=== PATIENT | female | born 1955 | race African-American/Black ===

== ENCOUNTER 2017-04-10 19:54 | Inpatient (IN) | payer OTHER ==
[~2017-04-10] VITALS: Ht 167.6 cm; Wt 56.9 kg
[2017-04-10] VITALS (16 sets, daily range): BP systolic 145–252; BP diastolic 78–157; PULSE 76–99; RESP 17–24; TEMP 99–100.2; O2SAT 99–100
[~2017-04-10 19:54] MED LIST: LISI10TA3 PO
[2017-04-10] MEDS ORDERED: niCARdipine INJ 25 MG in SODIUM CHLOR 0.9% 250 ML INJ 250 ML IV SCH (20:00)
[2017-04-10] MEDS ORDERED: SODIUM CHLORIDE 0.9% FLUSH 10 ML FLUSH IVF PRN (20:00)
--- NOTE | 2017-04-10 20:16 | PD ---
HPI Chief Complaint: altered mental status Time Seen by Provider: 20:00 Travel History International Travel<30 days: No Contact w/Intl Traveler<30days: No Traveled to known affect area: No History of Present Illness HPI This is a middle-aged/elderly female brought in by ambulance after being found in a park sitting next to a bench with altered mental status. Unknown time of onset. Patient was found by children playing in the park. Upon EMS arrival they noted right-sided weakness with a leftward gaze. Patient is nonverbal, however she is following commands and is moving her left upper and left lower extremity. EKG was performed in the field and shows ST elevations in V1 through V3 with ST depressions and T-wave inversions in V5 and V6, therefore STEMI alert was also called by EMS. Patient is also notably hypertensive with blood pressures of 250s over 150s. Upon arrival to the emergency department the patient is awake, nonverbal, follows commands, protecting her airway, is able to move her left arm and left leg, however is unable to move her right arm and right leg. Patient was started on a Cardene drip for suspected intracranial hemorrhage and promptly taken to CT scan. At 8:05 PM case was discussed with on-call digital producer Dr. Quarles who agrees that this is most likely an intracranial hemorrhage based on clinical presentation, therefore STEMI alert was not initiated. Further history unable to be obtained from the patient. [facility] Social History Tobacco Use: No (UTO) Allergies-Medications (Allergen,Severity, Reaction): Coded Allergies: UNOBTAINABLE (Unverified , 04/10/17) Reported Meds & Prescriptions Reported Meds & Active Scripts Active Active Prescriptions or Reported Medications Unobtainable Review of Systems ROS Limitations: Clinical Condition Physical Exam Narrative GENERAL: Well-developed, well-nourished, awake, drowsy, yawning, follows commands, nonverbal, unable to provide history. SKIN: Focused skin assessment warm/dry. No lacerations, abrasions, or ecchymosis. HEAD: Atraumatic. Normocephalic. EYES: Left preferential gaze. Right pupil is 4 mm, round, sluggishly reactive. Left pupil is 3 mm, round, sluggishly reactive. ENT: No nasal bleeding or discharge. Mucous membranes pink and moist. Airway is patent and protected. NECK: Trachea midline. No JVD. CARDIOVASCULAR: Regular rate and rhythm. RESPIRATORY: No accessory muscle use. Clear to auscultation. Breath sounds equal bilaterally. GASTROINTESTINAL: Abdomen soft, non-tender, nondistended. MUSCULOSKELETAL: No obvious deformities. No clubbing. No cyanosis. No edema. NEUROLOGICAL: Awake, drowsy, follows commands. 4 out of 5 muscle strength in left upper and left lower extremity. Patient unable to move right upper and right lower extremity. Data Data Last Documented VS Vital Signs Date Time Temp Pulse Resp B/P Pulse Ox O2 Delivery O2 Flow Rate FiO2 04/10/17 20:47 92 22 204/107 99 Nasal Cannula 2 04/10/17 20:15 99.0 Orders Prothrombin Time / Inr (Pt) (04/10/17 20:00) Act Partial Throm Time (Ptt) (04/10/17 20:00) Complete Blood Count With Diff (04/10/17 20:00) Comprehensive Metabolic Panel (04/10/17 20:00) Creatine Kinase (Cpk) (04/10/17 20:00) Drug Screen, Random Urine (04/10/17 20:00) Troponin I (04/10/17 20:00) Urinalysis - C+S If Indicated (04/10/17 20:00) Ct Brain W/O Iv Contrast(Rout) (04/10/17 20:00) Chest, Single Ap (04/10/17 20:00) Ecg Monitoring (04/10/17 20:00) Iv Access Insert/Monitor (04/10/17 20:00) Oximetry (04/10/17 20:00) Sodium Chloride 0.9% Flush (Ns Flush) (04/10/17 20:00) Nicardipine Inj (Cardene Inj) (04/10/17 20:00) Ct Brain W/O Iv Contrast(Rout) (04/11/17 08:00) Urinary Catheter Insert/Apply (04/10/17 20:46) Admit Order (Ed Use Only) (04/10/17 20:53) Labs Laboratory Tests Test 04/10/17 20:00 White Blood Count 5.0 TH/MM3 Red Blood Count 5.01 MIL/MM3 Hemoglobin 14.6 GM/DL Hematocrit 44.9 % Mean Corpuscular Volume 89.5 FL Mean Corpuscular Hemoglobin 29.2 PG Mean Corpuscular Hemoglobin 32.6 % Concent Red Cell Distribution Width 13.5 % Platelet Count 163 TH/MM3 Mean Platelet Volume 10.5 FL Neutrophils (%) (Auto) 70.9 % Lymphocytes (%) (Auto) 21.9 % Monocytes (%) (Auto) 6.7 % Eosinophils (%) (Auto) 0.1 % Basophils (%) (Auto) 0.4 % Neutrophils # (Auto) 3.5 TH/MM3 Lymphocytes # (Auto) 1.1 TH/MM3 Monocytes # (Auto) 0.3 TH/MM3 Eosinophils # (Auto) 0.0 TH/MM3 Basophils # (Auto) 0.0 TH/MM3 CBC Comment DIFF FINAL Differential Comment Prothrombin Time 11.5 SEC Prothromb Time International 1.0 RATIO Ratio Activated Partial 25.9 SEC Thromboplast Time Sodium Level 141 MEQ/L Potassium Level 3.9 MEQ/L Chloride Level 104 MEQ/L Carbon Dioxide Level 30.4 MEQ/L Anion Gap 7 MEQ/L Blood Urea Nitrogen 7 MG/DL Creatinine 0.88 MG/DL Estimat Glomerular Filtration 67 ML/MIN Rate Random Glucose 110 MG/DL Calcium Level 9.2 MG/DL Total Bilirubin 0.5 MG/DL Aspartate Amino Transf 25 U/L (AST/SGOT) Alanine Aminotransferase 30 U/L (ALT/SGPT) Alkaline Phosphatase 89 U/L Total Creatine Kinase 150 U/L Troponin I LESS THAN 0.02 NG/ML Total Protein 8.3 GM/DL Albumin 4.3 GM/DL MDM Medical Decision Making Medical Screen Exam Complete: Yes Emergency Medical Condition: Yes Differential Diagnosis Intracranial hemorrhage, CVA, seizure, metabolic abnormality, STEMI Narrative Course See HPI CT head: Acute thalamic and intraventricular hemorrhage on the left with approximately 7 mm of rightward midline shift. 8:30 PM: Case discussed with on-call neurosurgeon Dr. Wang. No neurosurgical intervention at this time. Recommends medical management. Case discussed with consumer loan manager Dr. Sheehan who will admit the patient to his service to the ICU. Critical Care Narrative Aggregate critical care time was 40 minutes. Time to perform other separately billable procedures was not included in the critical care time. My time did not include minutes spent treating any other patients simultaneously or on activities that did not directly contribute to the patient's treatment. The services I provided to this patient were to treat and/or prevent clinically significant deterioration that could result in: , permanent disability, worsening clinical condition I provided critical care services requiring my management, as noted below: Chart data review, documentation time, medication orders and management, vital sign assessments/reviewing monitor data, ordering and reviewing lab tests, ordering and interpreting/reviewing x-rays and diagnostic studies, care of the patient and discussion of the patient with the admitting physicians. Diagnosis Primary Impression: Intracranial hemorrhage Additional Impression: Hemiparesis Admitting Information Admitting Physician Requests: Admit Scripts Unable to Obtain Active Prescriptions or Reported Meds Bipin Rodríguez MD Apr 10, 2017 20:16
--- NOTE | 2017-04-10 20:18 | RADRPT ---
EXAM DATE/TIME: 04/10/2017 20:09 [facility] COMPARISON: No previous studies available for comparison. INDICATIONS : Found unresponsive. RADIATION DOSE: 48.69 CTDIvol (mGy) MEDICAL HISTORY : Non-responsive. SURGICAL HISTORY : Non-responsive. ENCOUNTER: Initial ACUITY: 1 day PAIN SCALE: Non-responsive LOCATION: cranial TECHNIQUE: Multiple contiguous axial images were obtained of the head. Using automated exposure control and adj ustment of the mA and/or kV according to patient size, radiation dose was kept as low as reasonably a chievable to obtain optimal diagnostic quality images. FINDINGS: An acute parenchymal hemorrhage of the left thalamus is present, measures about 2.4 x 3.1 cm in size. There is blood in the left lateral ventricle. Approximately 7 mm of rightward midline shift present. No other hemorrhage demonstrated. A 12 mm meningioma suspected of the left parietal vertex witho ut evidence of significant mass effect. No other mass lesions are demonstrated. No evidence of an acu te ischemic event. CONCLUSION: Acute thalamic and intraventricular hemorrhage on the left with approximately 7 mm of rightward midli ne shift. Hu Henderson MD on April 10, 2017 at 20:13 Board Certified Radiologist. This report was verified electronically.
--- NOTE | 2017-04-10 20:31 | PD.CONS ---
History of Present Illness Service Neurosurgery Consult Requested By Emergency room-Dr. Rodríguez Reason for Consult Intracranial hemorrhage Primary Care Physician Diagnoses: History of Present Illness Patient was found in the park with altered mental status. Reportedly awake with right hemiparesis and a phasic initially in the emergency room. Initial blood pressure to 50s over 150s placed on a Cardene drip. Patient noted to have a large left parenchymal hemorrhage was intraventricular extension on initial CT scan. Review of Systems Unobtainable due to altered mental status Past Family Social History Allergies: Coded Allergies: UNOBTAINABLE (Unverified , 04/10/17) Past Medical History Past medical, surgical, social and family history unobtainable due to altered mental status. No family available for history Physical Exam Vital Signs Vital Signs Date Time Temp Pulse Resp B/P Pulse Ox O2 Delivery O2 Flow Rate FiO2 04/10/17 20:15 99.0 88 22 251/123 99 04/10/17 20:15 78 24 252/125 100 Nasal Cannula 2 04/10/17 19:55 76 22 247/157 100 Nasal Cannula 2 Physical Exam GENERAL: Somewhat disheveled-appearing female SKIN: Scattered areas of ecchymosis. No significant lacerations or contusions HEAD: Atraumatic. Normocephalic. No temporal or scalp tenderness. EYES sclerae are clear and nonicteric ENT: No facial edema or ecchymosis. No CSF otorrhea or rhinorrhea. Edentulous NECK: Trachea midline. Supple, nontender, no meningeal signs. CARDIOVASCULAR: Regular rate and rhythm without murmurs, gallops, or rubs. RESPIRATORY: Clear to auscultation. Breath sounds equal bilaterally. No wheezes , rales, or rhonchi. GASTROINTESTINAL: Abdomen soft, non-tender, nondistended. No hepato-splenomegaly , or palpable masses. No guarding. MUSCULOSKELETAL: Extremities without clubbing, cyanosis, or edema. No joint tenderness, effusion, or edema noted. No calf tenderness. NEUROLOGICAL: Awake and relatively alert Nonverbal Does not follow commands Does not focus or follow with eyes Pupils 3 mm nonreactive Left gaze preference Mildly disconjugate extraocular movements Cannot accurately assess visual dang, tongue, palate, sternocleidomastoid testing, facial sensory motor testing, hearing due to decreased mental status Moves left upper and lower extremity major flexion and extension groups with moderate to good strength Minimal withdrawal to deep pain right upper and lower extremity. Dm's response absent bilateral No ankle clonus Imaging 04/10/2017 CT scan head images reviewed by the undersigned. Discussed with emergency room physician at the time of initial consult. Head CT 04/10/171999 Draft Impressions: Service Date/Time: Monday, April 10, 2017 20:09 - CONCLUSION: Acute thalamic and intraventricular hemorrhage on the left with approximately 7 mm of rightward midline shift. Hu Henderson MD Assessment and Plan Assessment and Plan Impression: 1. Left hemisphere intracranial hemorrhage with intraventricular extension. There is approximately 7 mm midline shift, however this is at the level of the ventricle, without significant effacement of the cistern. No significant hydrocephalus noted. Recommendations: Findings were discussed with emergency room physician. No neurosurgical intervention planned at the present time. Continued nicardipine drip and when necessary antihypertensive medications to keep systolic blood pressure 120-150 range. Follow-up CT scan head 04/11/17 Non-chemical DVT prophylaxis Ulcer prophylaxis Intensive care admission per motor builder winder Discussed with motor builder winder. CT angiogram pending Javi Wang MD Apr 10, 2017 20:31
[2017-04-10 20:32] LABS: AUTOMATED NEUTROPHIL # 3.5 TH/MM3 (1.8-7.7); BASOPHIL % 0.4 % (0.0-2.0); EOSINOPHIL % 0.1 % (0.0-4.0); HEMATOCRIT 44.9 % (35.0-46.0); HEMOGLOBIN 14.6 GM/DL (11.6-15.3); LYMPH % 21.9 % (9.0-44.0); LYMPHOCYTE # 1.1 TH/MM3 (1.0-4.8); MEAN CELL VOLUME 89.5 FL (80.0-100.0); MEAN CORPUSCULAR HEMOGLOBIN 29.2 PG (27.0-34.0); MEAN CORPUSCULAR HGB CONC 32.6 % (32.0-36.0); MEAN PLATELET VOLUME 10.5 FL (7.0-11.0); MONO % 6.7 % (0.0-8.0); MONOCYTE # 0.3 TH/MM3 (0-0.9); NEUT % 70.9 % (16.0-70.0); PLATELET COUNT 163 TH/MM3 (150-450); RED BLOOD COUNT 5.01 MIL/MM3 (4.00-5.30); RED CELL DISTRIBUTION WIDTH 13.5 % (11.6-17.2)
[2017-04-10 20:44] LABS: PROTHROMBIN TIME - PATIENT 11.5 SEC (9.8-11.6)
[2017-04-10 20:46] LABS: ALBUMIN 4.3 GM/DL (3.4-5.0); AST (GOT) 25 U/L (15-37); BICARBONATE 30.4 MEQ/L (21.0-32.0); BLOOD UREA NITROGEN 7 MG/DL (7-18); CALCIUM 9.2 MG/DL (8.5-10.1); CHLORIDE 104 MEQ/L (98-107); CREATININE 0.88 MG/DL (0.50-1.00); GLOMERULAR FILTRATION RATE 67 ML/MIN (>89); GLUCOSE,RANDOM 110 MG/DL (74-106); SODIUM (NA) 141 MEQ/L (136-145)
[2017-04-10 20:47] LABS: ALT (GPT) 30 U/L (10-53)
[2017-04-10 20:51] LABS: ALKALINE PHOSPHATASE 89 U/L (45-117); TOTAL BILIRUBIN ADULT 0.5 MG/DL (0.2-1.0); TOTAL PROTEIN 8.3 GM/DL (6.4-8.2); TROPONIN I LESS THAN 0.02 NG/ML (0.02-0.05)
--- NOTE | 2017-04-10 21:39 | RADRPT ---
EXAM DATE/TIME: 04/10/2017 21:03 [facility] COMPARISON: No previous studies available for comparison. INDICATIONS : Stroke alert. MEDICAL HISTORY : None. SURGICAL HISTORY : None. ENCOUNTER: Initial ACUITY: 1 day PAIN SCORE: 10/10 LOCATION: Bilateral upper chest FINDINGS: Left lateral lung base is not entirely included on the study. A single view of the chest demonstrates the visualized lungs to be symmetrically aerated without evidence of mass, infiltrate or effusion. The cardiomediastinal contours are unremarkable. Osseous structures are intact. CONCLUSION: No evidence of acute cardiopulmonary disease. Hu Henderson MD on April 10, 2017 at 21:37 Board Certified Radiologist. This report was verified electronically.
[2017-04-10 21:48] LABS: AMORPHOUS SEDIMENT, URINE RARE; BILIRUBIN, URINE NEG (NEG); BLOOD, URINE NEG (NEG); GLUCOSE,URINE NEG (NEG); KETONE, URINE NEG (NEG); NITRITE,URINE NEG (NEG); URINE COLOR LIGHT-YELLOW (YELLW/STRAW); URINE LEUKOCYTE ESTERASE SMALL (NEG)
[2017-04-10] MEDS ORDERED: BISACODYL 10 MG SUPP RECTAL PRN (22:00)
[2017-04-10] MEDS ORDERED: PROCHLORPERAZINE 25 MG SUPP RECTAL PRN (22:00)
[2017-04-10] MEDS ORDERED: NURSING INFORMATION XX SCH (22:00)
[2017-04-10] MEDS ORDERED: METOCLOPRAMIDE HCL 10 MG/2 ML VIAL IV PRN (22:00)
[2017-04-10] MEDS ORDERED: MAGNESIUM HYDROXIDE SUSP 30 ML CUP PO PRN (22:00)
[2017-04-10] MEDS ORDERED: CHLORHEXIDINE GLUCONATE 2 % 1 PACK (2 CLOTHS) TOP PRN (22:00)
[2017-04-10] MEDS ORDERED: RESP: ALBUTEROL 2.5 MG/IPRATROPIUM 0.5 MG NEB (PRN) INH (22:00)
[2017-04-10] MEDS ORDERED: ONDANSETRON HCL 4 MG/2 ML VIAL IV PRN (22:00)
[2017-04-10] MEDS ORDERED: IOHEXOL 350 MG/ML 10 ML VIAL (for RAD DIAG) IV ONE (22:35)
--- NOTE | 2017-04-10 22:38 | HHI.HP ---
HPI Service Critical Care Medicine Primary Care Physician Unknown Admission Diagnosis intracranial hemorrhage, right hemiparesis Diagnosis: Travel History International Travel<30 Days: No Contact w/Intl Traveler <30 Da: No Traveled to Known Affected Are: No History of Present Illness Middle-aged very pleasant female brought in by ambulance after being found in a park sitting next to a bench with altered mental status. Unknown time of onset. Patient was found by children playing in the park. Upon EMS arrival they noted right-sided weakness with a leftward gaze. Patient is nonverbal, she is following commands and is moving her left upper and left lower extremity. EKG was performed in the field and shows ST elevations in V1 through V3 with ST depressions and T-wave inversions in V5 and V6, therefore STEMI alert was also called by EMS. Patient was also notably hypertensive with blood pressures of 250s over 150s. Upon arrival to the emergency department the patient is awake, nonverbal, follows commands, protecting her airway, is able to move her left arm and left leg, however is unable to move her right arm and right leg. Patient was started on a Cardene drip for suspected intracranial hemorrhage and promptly taken to CT scan. At 8:05 PM case was discussed by with on-call steam shovelman Dr. Quarles who agrees that this is most likely an intracranial hemorrhage based on clinical presentation, therefore STEMI alert was not initiated. CT of the head confirmed thalamic bleed with IVH extension. Review of Systems ROS Unable to obtain patient is nonverbal Past Family Social History Allergies: Coded Allergies: UNOBTAINABLE (Unverified , 04/10/17) Past Medical History Unable to obtain Past Surgical History Unable to obtain Reported Medications Unable to obtain Active Ordered Medications Current Medications Medications (Trade) Dose Ordered Sig/Reymundo Route PRN Reason Start Time Stop Time Status Last Admin Dose Admin Sodium Chloride (NS 1000 ml Inj) 1,000 ml @ 84 mls/hr [id number] IV 04/10/17 22:00 04/10/17 22:57 Sodium Chloride (NS Flush) 2 ml UNSCH PRN .XX FLUSH AFTER USING IV ACCESS 04/10/17 22:00 Sodium Chloride (NS Flush) 2 ml BID .XX 04/11/17 09:00 Acetaminophen (Tylenol) 650 mg Q6H PRN PO PAIN 1-10 AND/OR FEVER >101F 04/10/17 22:00 Morphine Sulfate (Morphine Inj) 2 mg Q2H PRN IV PAIN SCALE 6 TO 10 04/10/17 22:00 Famotidine (Pepcid Inj) 20 mg Q12HR IV PUSH 04/11/17 09:00 Ondansetron HCl (Zofran Inj) 4 mg Q6H PRN IV NAUSEA OR VOMITING 04/10/17 22:00 Metoclopramide HCl (Reglan Inj) 10 mg Q6H PRN IV NAUSEA OR VOMITING 04/10/17 22:00 Prochlorperazine (Compazine Supp) 25 mg Q12H PRN RECTAL NAUSEA OR VOMITING 04/10/17 22:00 Miscellaneous Information 1 [id number] XX 04/10/17 22:00 04/10/17 22:00 Chlorhexidine Gluconate (Chlorhexidine 2% Cloth) 3 pack Taper DAILY@04 TOP 04/11/17 04:00 04/07/18 03:59 Chlorhexidine Gluconate (Chlorhexidine 2% Cloth) 3 pack UNSCH PRN TOP HYGIENIC CARE 04/10/17 22:00 Senna/Docusate Sodium (Evelyn-Colace) 1 tab BID PO 04/11/17 09:00 Magnesium Hydroxide (Milk Of Magnesia Liq) 30 ml Q12H PRN PO MILD - MODERATE CONSTIPATION 04/10/17 22:00 Sennosides (Senokot) 17.2 mg Q12H PRN PO MODERATE - SEVERE CONSTIPATION 04/10/17 22:00 Bisacodyl (Dulcolax Supp) 10 mg DAILY PRN RECTAL SEVERE CONSITIPATION 04/10/17 22:00 Lactulose 30 ml 30 ml DAILY PRN PO SEVERE CONSITIPATION 04/10/17 22:00 Nicardipine HCl/ Sodium Chloride (Cardene Inj/NS 250 ml Inj) 260 ml @ 0 mls/hr TITRATE IV 04/10/17 22:15 04/11/17 00:48 Family History Unable to obtain Social History Unable to obtain Physical Exam Vital Signs Vital Signs Date Time Temp Pulse Resp B/P Pulse Ox O2 Delivery O2 Flow Rate FiO2 04/10/17 22:15 90 21 163/82 99 Nasal Cannula 2 04/10/17 22:00 89 21 161/83 100 Nasal Cannula 2 04/10/17 21:45 91 21 199/99 99 Nasal Cannula 2 04/10/17 21:30 86 21 222/126 99 Nasal Cannula 2 04/10/17 21:15 96 17 225/131 99 Nasal Cannula 2 04/10/17 21:00 84 22 194/100 99 Nasal Cannula 2 04/10/17 20:47 92 22 204/107 99 Nasal Cannula 2 04/10/17 20:30 84 24 205/102 99 Nasal Cannula 2 04/10/17 20:15 99.0 88 22 251/123 99 04/10/17 20:15 78 24 252/125 100 Nasal Cannula 2 04/10/17 19:55 76 22 247/157 100 Nasal Cannula 2 04/10/17 19:55 99 Nasal Cannula 2 04/10/17 19:54 99 Nasal Cannula 2 Physical Exam GENERAL: Well-nourished, well-developed patient. Nonverbal SKIN: Warm and dry. HEAD: Normocephalic. EYES: No scleral icterus. No injection or drainage. NECK: Supple, trachea midline. No JVD or lymphadenopathy. CARDIOVASCULAR: Regular rate and rhythm without murmurs, gallops, or rubs. RESPIRATORY: Breath sounds equal bilaterally. No accessory muscle use. GASTROINTESTINAL: Abdomen soft, non-tender, nondistended. MUSCULOSKELETAL: No cyanosis, or edema. BACK: Nontender without obvious deformity. No CVA tenderness. EXTREMITIES: No clubbing cyanosis or edema, follows commands on the right, draws to pain on the left Laboratory Laboratory Tests Test 04/10/17 04/10/17 20:00 21:04 White Blood Count 5.0 Red Blood Count 5.01 Hemoglobin 14.6 Hematocrit 44.9 Mean Corpuscular Volume 89.5 Mean Corpuscular Hemoglobin 29.2 Mean Corpuscular Hemoglobin 32.6 Concent Red Cell Distribution Width 13.5 Platelet Count 163 Mean Platelet Volume 10.5 Neutrophils (%) (Auto) 70.9 Lymphocytes (%) (Auto) 21.9 Monocytes (%) (Auto) 6.7 Eosinophils (%) (Auto) 0.1 Basophils (%) (Auto) 0.4 Neutrophils # (Auto) 3.5 Lymphocytes # (Auto) 1.1 Monocytes # (Auto) 0.3 Eosinophils # (Auto) 0.0 Basophils # (Auto) 0.0 CBC Comment DIFF FINAL Differential Comment Prothrombin Time 11.5 Prothromb Time International 1.0 Ratio Activated Partial 25.9 Thromboplast Time Sodium Level 141 Potassium Level 3.9 Chloride Level 104 Carbon Dioxide Level 30.4 Anion Gap 7 Blood Urea Nitrogen 7 Creatinine 0.88 Estimat Glomerular Filtration 67 Rate Random Glucose 110 Calcium Level 9.2 Total Bilirubin 0.5 Aspartate Amino Transf 25 (AST/SGOT) Alanine Aminotransferase 30 (ALT/SGPT) Alkaline Phosphatase 89 Total Creatine Kinase 150 Troponin I LESS THAN 0.02 Total Protein 8.3 Albumin 4.3 Urine Color LIGHT-YELLOW Urine Turbidity HAZY Urine pH 8.0 Urine Specific [place] 1.009 Urine Protein TRACE Urine Glucose (UA) NEG Urine Ketones NEG Urine Occult Blood NEG Urine Nitrite NEG Urine Bilirubin NEG Urine Urobilinogen LESS THAN 2.0 Urine Leukocyte Esterase SMALL Urine RBC 3 Urine WBC 6 Urine Amorphous Sediment RARE Microscopic Urinalysis Comment CATH-CULT NOT IND Urine Opiates Screen NEG Urine Barbiturates Screen NEG Urine Amphetamines Screen NEG Urine Benzodiazepines Screen NEG Urine Cocaine Screen NEG Urine Cannabinoids Screen NEG Result Diagram: 04/10/17199904/10/171999 Imaging Last [address] 04/10/171999 Signed Impressions: Service Date/Time: Monday, April 10, 2017 20:09 - CONCLUSION: Acute thalamic and intraventricular hemorrhage on the left with approximately 7 mm of rightward midline shift. Hu Henderson MD Chest X-Ray 04/10/171999 Signed Impressions: Service Date/Time: Monday, April 10, 2017 21:03 - CONCLUSION: No evidence of acute cardiopulmonary disease. Hu Henderson MD Assessment and Plan Assessment and Plan Intracranial bleed - Thalamic ICH with IVH extension - ICH score 3 (72% mortality) - No surgical intervention - Patient was evaluated by neurosurgeon in the emergency department - Strict blood pressure control with SBP goal less than 150 - Admit to neuro ICU - Neuro checks per unit protocol - Monitor for hydrocephalus Hypertension - Nicardipine drip - SBP goal less than 150 Acute kidney injury - Dehydration - IV fluids resuscitation - Strict I's and O's - Monitor electrolytes and replace per protocol DVT GI prophylaxis - Teds SCDs - No pharmacological DVT prophylaxis due to acute ICH - Pepcid Critical Care: The total critical care time was 35 minutes. Time to perform other separately billable procedures was not included in the critical care time. Melvin Sheehan MD Apr 10, 2017 22:38
[2017-04-10] MEDS: SODIUM CHLOR 0.9% 1000 ML INJ 1,000 ML IV SCH (22:57)
[2017-04-11] VITALS (12 sets, daily range): BP systolic 131–148; BP diastolic 70–79; PULSE 75–96; RESP 16–22; TEMP 99.1–100.2; O2SAT 98–100
--- NOTE | 2017-04-11 00:01 | RADRPT ---
EXAM DATE/TIME: 04/10/2017 22:50 [facility] COMPARISON: No previous studies available for comparison. INDICATIONS : Intracranial hemorrhage. IV CONTRAST: 70 cc Omnipaque 350 (iohexol) IV ; Cumulative dose for multiple exams. RADIATION DOSE: 28.64 CTDIvol (mGy) ; Combined studies MEDICAL HISTORY : Non-responsive. SURGICAL HISTORY : Non-responsive. ENCOUNTER: Initial ACUITY: 1 day PAIN SCALE: Non-responsive LOCATION: cranial TECHNIQUE: Volumetric scanning was performed using a multi-row detector CT scanner. The data was post processed with a variety of visualization algorithms including full volume maximum intensity projection, multi -planar sliding thin slab reformation, curved planar reformation, and surface rendering techniques. Using automated exposure control and adjustment of the mA and/or kV according to patient size, radiat ion dose was kept as low as reasonably achievable to obtain optimal diagnostic quality images. FINDINGS: There is excellent visualization of the major intracranial arteries out to the second-order branch ve ssels. There is no evidence for vascular malformation. The basilar artery just proximal to its bifu rcation is somewhat dilated. The left P1 segment is mildly narrowed. There some mild narrowing in the middle cerebral artery and the left distal to its bifurcation. The left vertebral artery is dominant. Prominent left thalamic hemorrhage with extension into the ventricular system. CONCLUSION: Mild dilatation of the basilar tip without discrete aneurysm. Some narrowing of the left middle cereb ral branch after the bifurcation. Prominent left thalamic hemorrhage. Eliud Du MD on April 10, 2017 at 23:56 Board Certified Radiologist. This report was verified electronically.
--- NOTE | 2017-04-11 00:17 | RADRPT ---
EXAM DATE/TIME: 04/10/2017 22:28 [facility] COMPARISON: No previous studies available for comparison. INDICATIONS : Intracranial hemorrhage. IV CONTRAST: 70 cc Omnipaque 350 (iohexol) IV ; Cumulative dose for multiple exams. RADIATION DOSE: 28.64 CTDIvol (mGy) ; Combined studies MEDICAL HISTORY : Non-responsive. SURGICAL HISTORY : Non-responsive. ENCOUNTER: Initial ACUITY: 1 day PAIN SCALE: Non-responsive LOCATION: neck Elevated flow velocities and ICA/CCA ratios have been found to correlate with increased degrees of vessel stenosis, calculated as percentage of diameter relative to a normal segment of distal ICA/CCA. TECHNIQUE: Volumetric scanning was performed using a multirow detector CT scanner. The data was post processed with a variety of visualization algorithms including full-volume maximum intensity projection, multip lanar sliding thin-slab reformation, curved-planar reformation, and surface-rendering techniques. Us ing automated exposure control and adjustment of the mA and/or kV according to patient size, radiatio n dose was kept as low as reasonably achievable to obtain optimal diagnostic quality images. FINDINGS: AORTIC ARCH: There is a three-vessel origin of the great vessels from the aorta. No evidence of ostial narrowing. RIGHT CAROTID: The common carotid artery is intact. The carotid bulb has a normal configuration without ulceration o r narrowing. The internal carotid artery lumen is smooth without stenosis. The external carotid elisabeth ry is intact. LEFT CAROTID: The common carotid artery is intact. The carotid bulb has a normal configuration without ulceration or narrowing. The internal carotid artery lumen is smooth without stenosis. The external carotid ar tripp is intact. VERTEBRALS: The vertebral arteries have an asymmetric diameter. The left vertebral is dominant No stenotic lesio ns are seen. CONCLUSION: The internal carotid arteries are normal bilaterally. No significant atherosclerotic disease is noted . Eliud Du MD on April 11, 2017 at 0:15 Board Certified Radiologist. This report was verified electronically.
[2017-04-11] MEDS: niCARdipine INJ 25 MG in SODIUM CHLOR 0.9% 250 ML INJ 250 ML IV SCH ×8 (00:48→23:43)
[2017-04-11 02:45] LABS: BASOPHIL % 0.5 % (0.0-2.0); EOSINOPHIL % 0.2 % (0.0-4.0); HEMATOCRIT 44.7 % (35.0-46.0); HEMOGLOBIN 14.7 GM/DL (11.6-15.3); LYMPH % 22.1 % (9.0-44.0); LYMPHOCYTE # 1.3 TH/MM3 (1.0-4.8); MEAN CELL VOLUME 89.5 FL (80.0-100.0); MEAN CORPUSCULAR HEMOGLOBIN 29.4 PG (27.0-34.0); MEAN CORPUSCULAR HGB CONC 32.8 % (32.0-36.0); MONO % 9.4 % (0.0-8.0); MONOCYTE # 0.6 TH/MM3 (0-0.9); NEUT % 67.8 % (16.0-70.0); PLATELET COUNT 158 TH/MM3 (150-450); RED BLOOD COUNT 4.99 MIL/MM3 (4.00-5.30); RED CELL DISTRIBUTION WIDTH 13.5 % (11.6-17.2); WHITE BLOOD COUNT 5.9 TH/MM3 (4.0-11.0)
[2017-04-11 02:58] LABS: INTERNATIONAL NORMALIZED RATIO 1.1 RATIO; PROTHROMBIN TIME - PATIENT 11.9 SEC (9.8-11.6)
[2017-04-11 03:09] LABS: ALBUMIN 4.3 GM/DL (3.4-5.0); ALT (GPT) 27 U/L (10-53); AST (GOT) 26 U/L (15-37); BICARBONATE 27.4 MEQ/L (21.0-32.0); BLOOD UREA NITROGEN 8 MG/DL (7-18); CHLORIDE 106 MEQ/L (98-107); CREATININE 0.79 MG/DL (0.50-1.00); GLOMERULAR FILTRATION RATE 76 ML/MIN (>89); GLUCOSE,RANDOM 109 MG/DL (74-106); MAGNESIUM 2.2 MG/DL (1.5-2.5); PHOSPHORUS 3.2 MG/DL (2.5-4.9); SODIUM (NA) 140 MEQ/L (136-145)
[2017-04-11 03:13] LABS: ALKALINE PHOSPHATASE 91 U/L (45-117); TOTAL BILIRUBIN ADULT 0.6 MG/DL (0.2-1.0); TOTAL PROTEIN 8.2 GM/DL (6.4-8.2); TROPONIN I 0.04 NG/ML (0.02-0.05)
[2017-04-11] MEDS: CHLORHEXIDINE GLUCONATE 2 % 1 PACK (2 CLOTHS) TOP SCH (04:00)
[2017-04-11] MEDS: FAMOTIDINE 20 MG/2 ML VIAL IV PUSH SCH ×2 (07:47→20:57)
[2017-04-11] MEDS: DOCUSATE SODIUM 50 MG/SENNA 8.6 MG TAB PO SCH ×2 (07:47→20:58)
[2017-04-11] MEDS: SODIUM CHLOR 0.9% 1000 ML INJ 1,000 ML IV SCH (07:47)
[2017-04-11] MEDS: SODIUM CHLORIDE 0.9% FLUSH 10 ML FLUSH SCH ×2 (07:47→20:57)
--- NOTE | 2017-04-11 11:57 | RADRPT ---
EXAM DATE/TIME: 04/11/2017 11:25 [facility] COMPARISON: CT BRAIN W/O CONTRAST, April 10, 2017, 20:09. CTA BRAIN W 3D RECON, April 10, 2017, 22:50. INDICATIONS : Evaluate hemorrage RADIATION DOSE: 56.38 CTDIvol (mGy) MEDICAL HISTORY : Non-responsive. SURGICAL HISTORY : Non-responsive. ENCOUNTER: Subsequent ACUITY: 2 days PAIN SCALE: Non-responsive LOCATION: cranial TECHNIQUE: Multiple contiguous axial images were obtained of the head. Using automated exposure control and adj ustment of the mA and/or kV according to patient size, radiation dose was kept as low as reasonably a chievable to obtain optimal diagnostic quality images. FINDINGS: The examination demonstrates a 3.4 x 2.0 cm intraparenchymal hemorrhage beginning in the left basal g anglia and extending into the left caudate. There is intraventricular hemorrhage as well. There is mo derate mass effect associated with this with approximately 5 mm of ectw-bz-plfzt falcine shift. The v entricles are mildly enlarged. They are stable in size compared to previous examination. Comparison is made to previous study dated . The overall appearance of the hemorrhage is simila r. The ventricles are stable in size. No new areas of hemorrhage are seen. The appearance of the posterior fossa is unremarkable. CONCLUSION: 1. Stable intraparenchymal hemorrhage and intraventricular hemorrhage as described above. Timmy Dumas MD on April 11, 2017 at 11:53 Board Certified Radiologist. This report was verified electronically.
--- NOTE | 2017-04-11 13:44 | HHI.CCPN ---
Subjective Remarks/Hospital Course Hospital Course: Middle-aged very pleasant female brought in by ambulance after being found in a park sitting next to a bench with altered mental status. Unknown time of onset. Patient was found by children playing in the park. Upon EMS arrival they noted right-sided weakness with a leftward gaze. Patient is nonverbal, she is following commands and is moving her left upper and left lower extremity. EKG was performed in the field and shows ST elevations in V1 through V3 with ST depressions and T-wave inversions in V5 and V6, therefore STEMI alert was also called by EMS. Patient was also notably hypertensive with blood pressures of 250s over 150s. Upon arrival to the emergency department the patient is awake, nonverbal, follows commands, protecting her airway, is able to move her left arm and left leg, however is unable to move her right arm and right leg. Patient was started on a Cardene drip for suspected intracranial hemorrhage and promptly taken to CT scan. At 8:05 PM case was discussed by with on-call print line feeder Dr. Quarles who agrees that this is most likely an intracranial hemorrhage based on clinical presentation, therefore STEMI alert was not initiated. CT of the head confirmed thalamic bleed with IVH extension. Subjective: 04/11: stable neuro exam. remains on cardene. Objective Vital Signs Date Time Temp Pulse Resp B/P Pulse Ox O2 Delivery O2 Flow Rate FiO2 04/11/17 12:00 99.4 76 16 137/74 100 04/11/17 08:07 Nasal Cannula 2.00 Intake and Output 04/10/17 04/10/17 04/11/17 08:00 16:00 00:00 Output Total 550 ml Balance -550 ml Result Diagram: 04/11/17 0233 04/11/17 0233 Imaging Last [address] 04/10/171999 Signed Impressions: Service Date/Time: Monday, April 10, 2017 20:09 - CONCLUSION: Acute thalamic and intraventricular hemorrhage on the left with approximately 7 mm of rightward midline shift. Hu Henderson MD Chest X-Ray 04/10/171999 Signed Impressions: Service Date/Time: Monday, April 10, 2017 21:03 - CONCLUSION: No evidence of acute cardiopulmonary disease. Hu Henderson MD Objective Remarks GENERAL: Well-nourished, well-developed patient. Nonverbal SKIN: Warm and dry. HEAD: Normocephalic. EYES: No scleral icterus. No injection or drainage. NECK: trachea midline. No JVD. CARDIOVASCULAR: Regular rate and rhythm without murmurs, gallops, or rubs. RESPIRATORY: Breath sounds equal bilaterally. No accessory muscle use. GASTROINTESTINAL: Abdomen soft, non-tender, nondistended. MUSCULOSKELETAL: No cyanosis, or edema. EXTREMITIES: No clubbing cyanosis or edema, follows commands on the right, draws to pain on the left neuro: expressive and receptive aphasia. w/d on right. f/c intermittently on left. A/P Assessment and Plan Assessment: elderly female s/p Thalamic ICH with IVH. Neuro exam stable. keep NPO. swallow eval. tight sbp control. frequent neuro checks. Intracranial bleed - Thalamic ICH with IVH extension - ICH score 3 (72% mortality) - No surgical intervention - Patient was evaluated by neurosurgeon in the emergency department - Strict blood pressure control with SBP goal less than 150 - Admit to neuro ICU - Neuro checks per unit protocol - Monitor for hydrocephalus Hypertension - Nicardipine drip - SBP goal less than 150 Acute kidney injury - Dehydration - IV fluids resuscitation - Strict I's and O's - Monitor electrolytes and replace per protocol DVT GI prophylaxis - Teds SCDs - No pharmacological DVT prophylaxis due to acute ICH - Pepcid dispo: remain in the ICU. high risk for decompensation. Howard Coulter MD Apr 11, 2017 13:44
--- NOTE | 2017-04-11 16:33 | RADRPT ---
EXAM DATE/TIME: 04/11/2017 15:35 [facility] COMPARISON: No previous studies available for comparison. INDICATIONS : Dobhoff placement. MEDICAL HISTORY : Non-responsive. SURGICAL HISTORY : Non-responsive. ENCOUNTER: Initial ACUITY: 1 day PAIN SCORE: Non-responsive. LOCATION: Bilateral abdomen. FINDINGS: Frontal view of the lower chest and upper abdomen demonstrates metallic tip Dobbhoff catheter project ed in the stomach. The visualized lower lungs are clear. No dilated loops of small or large bowel. CONCLUSION: Dobbhoff catheter tip projects within the mid stomach. Phillip Moss MD on April 11, 2017 at 16:31 Board Certified Radiologist. This report was verified electronically.
--- NOTE | 2017-04-11 21:20 | EKG ---
Date Performed: 04/10/2017 Time Performed: 19:59:28 PTAGE: 89 years EKG: Sinus rhythm LEFT ATRIAL ENLARGEMENT LEFT VENTRICULAR HYPERTROPHY AND ST-T CHANGE POSSIBLE SEPTAL MYOCARDIAL INFA RCTION ACUTE ID NO PREVIOUS TRACING DOCTOR: Hermes Ignacio Interpretating Date/Time 04/11/2017 21:14:55
[2017-04-12] VITALS (12 sets, daily range): BP systolic 126–162; BP diastolic 66–83; PULSE 74–93; RESP 18–25; TEMP 98.8–99.9; O2SAT 98–100
[2017-04-12] MEDS: niCARdipine INJ 25 MG in SODIUM CHLOR 0.9% 250 ML INJ 250 ML IV SCH ×2 (03:00→23:08)
[2017-04-12] MEDS: CHLORHEXIDINE GLUCONATE 2 % 1 PACK (2 CLOTHS) TOP SCH (04:39)
[2017-04-12] MEDS: DOCUSATE SODIUM 50 MG/SENNA 8.6 MG TAB PO SCH ×2 (07:28→21:00)
[2017-04-12] MEDS: FAMOTIDINE 20 MG/2 ML VIAL IV PUSH SCH ×2 (07:28→21:28)
[2017-04-12] MEDS: SODIUM CHLORIDE 0.9% FLUSH 10 ML FLUSH SCH ×2 (07:28→21:28)
--- NOTE | 2017-04-12 08:03 | HHI.CCPN ---
Subjective Remarks/Hospital Course CCM Progress note/Transfer summary Middle-aged very pleasant female brought in by ambulance after being found in a park sitting next to a bench with altered mental status. Unknown time of onset. Patient was found by children playing in the park. Upon EMS arrival they noted right-sided weakness with a leftward gaze. Patient is nonverbal, she is following commands and is moving her left upper and left lower extremity. EKG was performed in the field and shows ST elevations in V1 through V3 with ST depressions and T-wave inversions in V5 and V6, therefore STEMI alert was also called by EMS. Patient was also notably hypertensive with blood pressures of 250s over 150s. Upon arrival to the emergency department the patient is awake, nonverbal, follows commands, protecting her airway, is able to move her left arm and left leg, however is unable to move her right arm and right leg. Patient was started on a Cardene drip for suspected intracranial hemorrhage and promptly taken to CT scan. At 8:05 PM case was discussed by with on-call technical editor Dr. Quarles who agrees that this is most likely an intracranial hemorrhage based on clinical presentation, therefore STEMI alert was not initiated. CT of the head confirmed thalamic bleed with IVH extension. Subjective: 04/11: stable neuro exam. remains on cardene 5 mg per hour. PRN Hydralazine and labetalol added. Ct imaging yesterday stable. Objective Vital Signs Date Time Temp Pulse Resp B/P Pulse Ox O2 Delivery O2 Flow Rate FiO2 04/12/17 07:15 98 Room Air 04/12/17 06:00 77 04/12/17 04:00 99.3 18 137/73 04/11/17 08:07 2.00 Intake and Output 04/11/17 04/11/17 04/12/17 08:00 16:00 00:00 Intake Total 1424 ml 1750 ml 1016 ml Output Total 600 ml 350 ml 450 ml Balance 824 ml 1400 ml 566 ml Result Diagram: 04/11/17 0233 04/11/17 0233 Imaging Last [address] 04/10/171999 Signed Impressions: Service Date/Time: Monday, April 10, 2017 20:09 - CONCLUSION: Acute thalamic and intraventricular hemorrhage on the left with approximately 7 mm of rightward midline shift. Hu Henderson MD Chest X-Ray 04/10/171999 Signed Impressions: Service Date/Time: Monday, April 10, 2017 21:03 - CONCLUSION: No evidence of acute cardiopulmonary disease. Hu Henderson MD Objective Remarks GENERAL: Well-nourished, well-developed patient. Nonverbal SKIN: Warm and dry. HEAD: Normocephalic. EYES: No scleral icterus. No injection or drainage. NECK: trachea midline. No JVD. CARDIOVASCULAR: Regular rate and rhythm without murmurs, gallops, or rubs. RESPIRATORY: Breath sounds equal bilaterally. No accessory muscle use. GASTROINTESTINAL: Abdomen soft, non-tender, nondistended. MUSCULOSKELETAL: No cyanosis, or edema. EXTREMITIES: No clubbing cyanosis or edema, follows commands on the right, draws to pain on the left NEURO: expressive and receptive aphasia. Flaccid on right. Follows commands on left. 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 Neuro exam stable. keep NPO. swallow eval. tight sbp control. frequent neuro checks. Intracranial bleed - Thalamic ICH with IVH extension - ICH score 3 (72% mortality) - No surgical intervention per Dr. Wang - Strict blood pressure control with SBP goal less than 150 - Neuro checks per unit protocol - Monitor for hydrocephalus Hypertension - Nicardipine drip wean to DC, after starting PRN Labetalol and hydralazine. Start Norvasc 5 mg daily - SBP goal less than 150 Acute kidney injury - Dehydration - IV fluids resuscitation - Strict I's and O's - Monitor electrolytes and replace per protocol DVT GI prophylaxis - Teds SCDs - No pharmacological DVT prophylaxis due to acute ICH - Pepcid PT/OT dispo: remain in the ICU. Moderate risk for decompensation. Consult [facility] to assume care in am Charles Lui MD Apr 12, 2017 08:03
[2017-04-12] MEDS: hydrALAZINE HCL 20 MG/ML VIAL IV PUSH PRN ×4 (09:02→22:32)
[2017-04-12] MEDS: amLODIPine BESYLATE 5 MG TAB PO SCH (09:02)
[2017-04-12] MEDS: LABETALOL HCL 100 MG/20 ML VIAL IV PUSH PRN ×3 (11:05→19:33)
[2017-04-12] MEDS: METOCLOPRAMIDE HCL 10 MG/2 ML VIAL IV PUSH SCH ×2 (17:14→21:28)
--- NOTE | 2017-04-12 21:42 | RADRPT ---
EXAM DATE/TIME: 04/12/2017 17:29 [facility] COMPARISON: No previous studies available for comparison. INDICATIONS : Distention. Rule out illeus. MEDICAL HISTORY : None. SURGICAL HISTORY : None. ENCOUNTER: Initial ACUITY: 1 day PAIN SCORE: Non-responsive. LOCATION: Bilateral Abdomen. FINDINGS: 2 AP supine views of the abdomen and pelvis were obtained. There is a nasogastric tube in place with the tip projected over the proximal to mid stomach. The abdominal bowel gas pattern is normal. No ab normal masses, calcifications, or organomegaly is seen. The osseous structures are unremarkable. CONCLUSION: Nonobstructive bowel gas pattern. Suresh Zapata MD on April 12, 2017 at 21:40 Board Certified Radiologist. This report was verified electronically.
[2017-04-13] VITALS (13 sets, daily range): BP systolic 145–177; BP diastolic 76–86; PULSE 68–97; RESP 15–22; TEMP 98.1–101.2; O2SAT 98–100
[2017-04-13] MEDS: LABETALOL HCL 100 MG/20 ML VIAL IV PUSH PRN ×2 (00:02→19:55)
[2017-04-13] MEDS: ACETAMINOPHEN 325 MG TAB PO PRN (01:30)
[2017-04-13] MEDS: niCARdipine INJ 25 MG in SODIUM CHLOR 0.9% 250 ML INJ 250 ML IV SCH ×6 (01:53→23:53)
[2017-04-13] MEDS: CHLORHEXIDINE GLUCONATE 2 % 1 PACK (2 CLOTHS) TOP SCH (03:59)
[2017-04-13] MEDS: hydrALAZINE HCL 20 MG/ML VIAL IV PUSH PRN ×3 (04:21→23:53)
[2017-04-13] MEDS: METOCLOPRAMIDE HCL 10 MG/2 ML VIAL IV PUSH SCH ×3 (06:37→21:29)
[2017-04-13] MEDS: FAMOTIDINE 20 MG/2 ML VIAL IV PUSH SCH ×2 (08:31→19:38)
[2017-04-13] MEDS: amLODIPine BESYLATE 5 MG TAB PO SCH (08:31)
[2017-04-13] MEDS: SODIUM CHLORIDE 0.9% FLUSH 10 ML FLUSH SCH ×2 (08:32→19:38)
[2017-04-13] MEDS: DOCUSATE SODIUM 50 MG/SENNA 8.6 MG TAB PO SCH ×2 (08:32→19:53)
[2017-04-13] MEDS ORDERED: POTASSIUM CHLOR 40 MEQ PREMIX 100 ML IV PRN ×2 (11:45)
[2017-04-13] MEDS ORDERED: SODIUM PHOSPHATE INJ 30 MMOL in SODIUM CHLOR 0.9% 250 ML INJ 240 ML IV PRN (11:45)
[2017-04-13] MEDS ORDERED: MAGNESIUM SULFATE INJ 2 GM in SODIUM CHLORIDE 0.9% INJ 96 ML IV PRN (11:45)
[2017-04-13] MEDS ORDERED: MAGNESIUM OXIDE 400 MG TAB PO PRN (11:45)
[2017-04-13] MEDS ORDERED: MAGNESIUM SULFATE INJ 4 GM in SODIUM CHLORIDE 0.9% INJ 92 ML IV PRN (11:45)
[2017-04-13] MEDS ORDERED: POTASSIUM CHLOR 20 MEQ PREMIX 100 ML IV PRN (11:45)
[2017-04-13] MEDS ORDERED: POTASSIUM PHOSPHATE INJ 30 MMOL in SODIUM CHLOR 0.9% 250 ML INJ 250 ML IV PRN (11:45)
[2017-04-13] MEDS ORDERED: POTASSIUM CHLORIDE 25 MEQ EFFERVESCENT TAB PO PRN (11:45)
[2017-04-13] MEDS ORDERED: POTASSIUM PHOSPHATE MONOBASIC 500 MG TAB PO PRN (11:45)
[2017-04-13] MEDS ORDERED: POTASSIUM PHOSPHATE MONOBASIC 500 MG TAB PO/TUBE PRN (11:45)
--- NOTE | 2017-04-13 11:46 | HHI.CCPN ---
Subjective Remarks/Hospital Course Middle-aged very pleasant female brought in by ambulance after being found in a park sitting next to a bench with altered mental status. Unknown time of onset. Patient was found by children playing in the park. Upon EMS arrival they noted right-sided weakness with a leftward gaze. Patient is nonverbal, she is following commands and is moving her left upper and left lower extremity. EKG was performed in the field and shows ST elevations in V1 through V3 with ST depressions and T-wave inversions in V5 and V6, therefore STEMI alert was also called by EMS. Patient was also notably hypertensive with blood pressures of 250s over 150s. Upon arrival to the emergency department the patient is awake, nonverbal, follows commands, protecting her airway, is able to move her left arm and left leg, however is unable to move her right arm and right leg. Patient was started on a Cardene drip for suspected intracranial hemorrhage and promptly taken to CT scan. At 8:05 PM case was discussed by with on-call advertising agent Dr. Quarles who agrees that this is most likely an intracranial hemorrhage based on clinical presentation, therefore STEMI alert was not initiated. CT of the head confirmed thalamic bleed with IVH extension. Subjective: 04/12: stable neuro exam. remains on cardene 5 mg per hour. PRN Hydralazine and labetalol added. Ct imaging yesterday stable. 04/13: Patient still on CCM service as Cardene was re started. Start PO metoprolol and hydralazine. Neuro exam unchanged Objective Vital Signs Date Time Temp Pulse Resp B/P Pulse Ox O2 Delivery O2 Flow Rate FiO2 04/13/17 10:00 68 04/13/17 08:18 98 21 04/13/17 08:00 98.7 20 155/79 04/13/17 07:00 Room Air 04/11/17 08:07 2.00 Intake and Output 04/12/17 04/12/17 04/13/17 08:00 16:00 00:00 Intake Total 979 ml 566 ml 269 ml Output Total 425 ml 400 ml 500 ml Balance 554 ml 166 ml -231 ml Result Diagram: 04/11/17 0233 04/11/17 0233 Imaging Last [address] 04/10/171999 Signed Impressions: Service Date/Time: Monday, April 10, 2017 20:09 - CONCLUSION: Acute thalamic and intraventricular hemorrhage on the left with approximately 7 mm of rightward midline shift. Hu Henderson MD Chest X-Ray 04/10/171999 Signed Impressions: Service Date/Time: Monday, April 10, 2017 21:03 - CONCLUSION: No evidence of acute cardiopulmonary disease. Hu Henderson MD Objective Remarks GENERAL: Well-nourished, well-developed patient. Nonverbal SKIN: Warm and dry. HEAD: Normocephalic. EYES: No scleral icterus. No injection or drainage. NECK: trachea midline. No JVD. CARDIOVASCULAR: Regular rate and rhythm without murmurs, gallops, or rubs. Remains hypotensive RESPIRATORY: Breath sounds equal bilaterally. No accessory muscle use. GASTROINTESTINAL: Abdomen soft, non-tender, nondistended. MUSCULOSKELETAL: No cyanosis, or edema. EXTREMITIES: No clubbing cyanosis or edema, follows commands on the right, draws to pain on the left NEURO: Expressive and receptive aphasia. Flaccid on right. Follows commands on left. 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 Neuro exam stable. Tight sbp control. frequent neuro checks. Intracranial bleed - Thalamic ICH with IVH extension - ICH score 3 - No surgical intervention per Dr. Wang - Strict blood pressure control with SBP goal less than 150-160 - Neuro checks per unit protocol - Monitor for hydrocephalus Hypertension - Nicardipine drip wean to DC,Use PRN Labetalol and hydralazine. - Started Norvasc 5 mg daily 04/12. Add metoprolol 25 mg by mouth every 8 hours, hydralazine 50 mg by mouth every 8 hours starting today 04/13/17 - SBP goal less than 150-160 Acute kidney injury - Dehydration - IV fluids resuscitation - Strict I's and O's - Monitor electrolytes and replace per protocol DVT GI prophylaxis - Teds SCDs - No pharmacological DVT prophylaxis due to acute ICH - Pepcid PT/OT dispo: remain in the ICU. Moderate risk for decompensation. [facility] Dr. Locke to assume care in am. PT/OT/Speech Charles Lui MD Apr 13, 2017 11:46
[2017-04-13] MEDS: hydrALAZINE HCL 50 MG TAB PO SCH ×2 (13:43→19:38)
[2017-04-13] MEDS: METOPROLOL TARTRATE 25 MG TAB PO SCH ×2 (13:43→21:29)
[2017-04-13 13:44] LABS: MAGNESIUM 2.3 MG/DL (1.5-2.5); PHOSPHORUS 2.7 MG/DL (2.5-4.9)
[2017-04-14] VITALS (14 sets, daily range): BP systolic 142–172; BP diastolic 73–93; PULSE 72–100; RESP 19–27; TEMP 98.4–99.8; O2SAT 97–99
[2017-04-14] MEDS: LABETALOL HCL 100 MG/20 ML VIAL IV PUSH PRN ×3 (02:48→17:24)
[2017-04-14] MEDS: CHLORHEXIDINE GLUCONATE 2 % 1 PACK (2 CLOTHS) TOP SCH (03:23)
[2017-04-14] MEDS: hydrALAZINE HCL 50 MG TAB PO SCH (03:23)
[2017-04-14] MEDS: niCARdipine INJ 25 MG in SODIUM CHLOR 0.9% 250 ML INJ 250 ML IV SCH (04:35)
[2017-04-14 05:02] LABS: ALBUMIN 3.2 GM/DL (3.4-5.0); ALKALINE PHOSPHATASE 67 U/L (45-117); ALT (GPT) 31 U/L (10-53); AST (GOT) 32 U/L (15-37); BICARBONATE 24.2 MEQ/L (21.0-32.0); BLOOD UREA NITROGEN 18 MG/DL (7-18); CALCIUM 7.8 MG/DL (8.5-10.1); CHLORIDE 106 MEQ/L (98-107); CREATININE 0.68 MG/DL (0.50-1.00); GLOMERULAR FILTRATION RATE 90 ML/MIN (>89); GLUCOSE,RANDOM 134 MG/DL (74-106); MAGNESIUM 2.3 MG/DL (1.5-2.5); SODIUM (NA) 140 MEQ/L (136-145); TOTAL BILIRUBIN ADULT 0.6 MG/DL (0.2-1.0); TOTAL PROTEIN 6.7 GM/DL (6.4-8.2)
[2017-04-14] MEDS: METOCLOPRAMIDE HCL 10 MG/2 ML VIAL IV PUSH SCH ×3 (05:40→22:00)
[2017-04-14] MEDS: METOPROLOL TARTRATE 25 MG TAB PO SCH (05:40)
[2017-04-14] MEDS: POTASSIUM CHLOR 20 MEQ PREMIX 100 ML IV PRN ×4 (05:41→13:06)
[2017-04-14] MEDS: DOCUSATE SODIUM 50 MG/SENNA 8.6 MG TAB PO SCH ×2 (07:58→20:15)
[2017-04-14] MEDS: SODIUM CHLORIDE 0.9% FLUSH 10 ML FLUSH SCH ×2 (07:58→20:14)
[2017-04-14] MEDS: FAMOTIDINE 20 MG/2 ML VIAL IV PUSH SCH ×2 (08:55→20:15)
[2017-04-14] MEDS: amLODIPine BESYLATE 5 MG TAB PO SCH (08:55)
[2017-04-14] MEDS ORDERED: hydrALAZINE HCL 50 MG TAB PO SCH (12:00)
[2017-04-14] MEDS: METOPROLOL TARTRATE 50 MG TAB PO SCH ×2 (13:06→22:00)
--- NOTE | 2017-04-14 13:17 | HHI.PR ---
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 Unknown time of onset. Patient was found by children playing in the park. Upon EMS arrival they noted right-sided weakness with a leftward gaze. Patient is nonverbal, she is following commands and is moving her left upper and left lower extremity. EKG was performed in the field and shows ST elevations in V1 through V3 with ST depressions and T-wave inversions in V5 and V6, therefore STEMI alert was also called by EMS. Patient was also notably hypertensive with blood pressures of 250s over 150s. Upon arrival to the emergency department the patient is awake, nonverbal, follows commands, protecting her airway, is able to move her left arm and left leg, however is unable to move her right arm and right leg. Patient was started on a Cardene drip for suspected intracranial hemorrhage and promptly taken to CT scan. At 8:05 PM case was discussed by with on-call credit counselor Dr. Quarles who agrees that this is most likely an intracranial hemorrhage based on clinical presentation, therefore STEMI alert was not initiated. CT of the head confirmed thalamic bleed with IVH extension. Subjective: 04/12: stable neuro exam. remains on cardene 5 mg per hour. PRN Hydralazine and labetalol added. Ct imaging yesterday stable. 04/13: Patient still on CCM service as Cardene was re started. Start PO metoprolol and hydralazine. Neuro exam unchanged Hospitalist Notes: 04/14: Patient seen in the presence of nurse Miss Hutchins, she states there is no relatives to notify and not able to get information about the patient, continue with Right hemiplegia and some activity on the left side, continue Obtunded, supportive care started by Manager Poker will continue present care will add Neurology specialist for recommendations. Objective Vital Signs Date Time Temp Pulse Resp B/P Pulse Ox O2 Delivery O2 Flow Rate FiO2 04/14/17 12:00 84 04/14/17 12:00 98.6 84 20 145/82 98 04/14/17 11:01 97 21 04/14/17 10:00 73 04/14/17 08:00 85 04/14/17 08:00 98.4 85 24 152/81 97 04/14/17 06:00 84 04/14/17 04:00 86 04/14/17 04:00 99.8 86 20 142/75 97 04/14/17 02:00 93 04/14/17 00:00 100 04/14/17 00:00 99.0 100 27 142/73 99 04/13/17 22:00 80 04/13/17 20:00 98.8 91 22 177/83 98 04/13/17 20:00 91 04/13/17 18:00 94 04/13/17 16:00 98.6 87 18 149/81 100 04/13/17 16:00 87 04/13/17 14:00 90 I/O 04/13/17 04/13/17 04/13/17 04/14/17 04/14/17 04/14/17 07:00 15:00 23:00 07:00 15:00 23:00 Intake Total 689 ml 781 ml 1050 ml 1219 ml Output Total 425 ml 450 ml 300 ml 450 ml Balance 264 ml 331 ml 750 ml 769 ml Intake Oral 0 ml IV Total 629 ml 703 ml 706 ml 761 ml Tube Feeding 18 ml 104 ml 158 ml Tube Irrigant 60 ml 240 ml Other 60 ml 300 ml Output Urine Total 425 ml 450 ml 300 ml 450 ml # Bowel Movements 0 0 0 1 Result Diagram: 04/11/17 0233 04/14/17 0338 Imaging Last Impressions Abdomen X-Ray 04/12/17 1538 Signed Impressions: Service Date/Time: Wednesday, April 12, 2017 17:29 - CONCLUSION: Nonobstructive bowel gas pattern. Suresh Zapata MD Head CT 04/11/17 0800 Signed Impressions: Service Date/Time: Tuesday, April 11, 2017 11:25 - CONCLUSION: 1. Stable intraparenchymal hemorrhage and intraventricular hemorrhage as described above. Timym Dumas MD Chest X-Ray 04/10/17 2000 Signed Impressions: Service Date/Time: Monday, April 10, 2017 21:03 - CONCLUSION: No evidence of acute cardiopulmonary disease. Hu Henderson MD Neck CTA 04/10/17 0000 Signed Impressions: Service Date/Time: Monday, April 10, 2017 22:28 - CONCLUSION: The internal carotid arteries are normal bilaterally. No significant atherosclerotic disease is noted. Eliud Du MD Head CTA 04/10/17 0000 Signed Impressions: Service Date/Time: Monday, April 10, 2017 22:50 - CONCLUSION: Mild dilatation of the basilar tip without discrete aneurysm. Some narrowing of the left middle cerebral branch after the bifurcation. Prominent left thalamic hemorrhage. Eliud Du MD Procedures No procedures performed Other Results Laboratory Tests Test 04/10/17 04/10/17 04/10/17 04/11/17 20:00 21:04 23:30 02:33 Activated Partial 25.9 SEC Thromboplast Time Total Creatine Kinase 150 U/L Urine Color LIGHT-YELLOW Urine Turbidity HAZY Urine pH 8.0 Urine Specific [place] 1.009 Urine Protein TRACE mg/dL Urine Glucose (UA) NEG mg/dL Urine Ketones NEG mg/dL Urine Occult Blood NEG Urine Nitrite NEG Urine Bilirubin NEG Urine Urobilinogen LESS THAN 2.0 MG/DL Urine Leukocyte Esterase SMALL Urine RBC 3 /hpf Urine WBC 6 /hpf Urine Amorphous Sediment RARE Microscopic Urinalysis Comment CATH-CULT NOT IND Urine Opiates Screen NEG Urine Barbiturates Screen NEG Urine Amphetamines Screen NEG Urine Benzodiazepines Screen NEG Urine Cocaine Screen NEG Urine Cannabinoids Screen NEG Nasal Screen MRSA (PCR) MRSA NOT DETECTED White Blood Count 5.9 TH/MM3 Red Blood Count 4.99 MIL/MM3 Hemoglobin 14.7 GM/DL Hematocrit 44.7 % Mean Corpuscular Volume 89.5 FL Mean Corpuscular Hemoglobin 29.4 PG Mean Corpuscular Hemoglobin 32.8 % Concent Red Cell Distribution Width 13.5 % Platelet Count 158 TH/MM3 Mean Platelet Volume 10.0 FL Neutrophils (%) (Auto) 67.8 % Lymphocytes (%) (Auto) 22.1 % Monocytes (%) (Auto) 9.4 % Eosinophils (%) (Auto) 0.2 % Basophils (%) (Auto) 0.5 % Neutrophils # (Auto) 4.0 TH/MM3 Lymphocytes # (Auto) 1.3 TH/MM3 Monocytes # (Auto) 0.6 TH/MM3 Eosinophils # (Auto) 0.0 TH/MM3 Basophils # (Auto) 0.0 TH/MM3 CBC Comment DIFF FINAL Differential Comment Prothrombin Time 11.9 SEC Prothromb Time International 1.1 RATIO Ratio Test 04/11/17 04/13/17 04/14/17 10:31 12:54 03:38 Troponin I 0.03 NG/ML Phosphorus Level 2.7 MG/DL Sodium Level 140 MEQ/L Potassium Level 3.2 MEQ/L Chloride Level 106 MEQ/L Carbon Dioxide Level 24.2 MEQ/L Anion Gap 10 MEQ/L Blood Urea Nitrogen 18 MG/DL Creatinine 0.68 MG/DL Estimat Glomerular Filtration 90 ML/MIN Rate Random Glucose 134 MG/DL Calcium Level 7.8 MG/DL Magnesium Level 2.3 MG/DL Total Bilirubin 0.6 MG/DL Aspartate Amino Transf 32 U/L (AST/SGOT) Alanine Aminotransferase 31 U/L (ALT/SGPT) Alkaline Phosphatase 67 U/L Total Protein 6.7 GM/DL Albumin 3.2 GM/DL Objective Remarks GENERAL: Well-nourished, well-developed patient. Nonverbal SKIN: Warm and dry. HEAD: Normocephalic. NG tube in place. EYES: No scleral icterus. No injection or drainage. NECK: trachea midline. No JVD. CARDIOVASCULAR: Regular rate and rhythm without murmurs, gallops, or rubs. Remains hypotensive RESPIRATORY: Breath sounds equal bilaterally. No accessory muscle use. GASTROINTESTINAL: Abdomen soft, non-tender, nondistended. MUSCULOSKELETAL: No cyanosis, or edema. EXTREMITIES: No clubbing cyanosis or edema, NEURO: at this time Obtunded not following commands. Medications and IVs Current Medications Medications (Trade) Dose Ordered Sig/Reymundo Route Start Time Stop Time Status Last Admin (NS Flush) 2 ml UNSCH PRN .XX 04/10/17 22:00 (NS Flush) 2 ml BID .XX 04/11/17 09:00 04/13/17 19:38 (Tylenol) 650 mg Q6H PRN PO 04/10/17 22:00 04/13/17 01:30 (Morphine Inj) 2 mg Q2H PRN IV 04/10/17 22:00 (Pepcid Inj) 20 mg Q12HR IV PUSH 04/11/17 09:00 04/14/17 08:55 (Zofran Inj) 4 mg Q6H PRN IV 04/10/17 22:00 (Reglan Inj) 10 mg Q6H PRN IV 04/10/17 22:00 (Compazine Supp) 25 mg Q12H PRN RECTAL 04/10/17 22:00 Miscellaneous Information 1 Q361D XX 04/10/17 22:00 04/10/17 22:00 (Chlorhexidine 2% Cloth) 3 pack Taper DAILY@04 TOP 04/11/17 04:00 04/07/18 03:59 04/14/17 03:23 (Chlorhexidine 2% Cloth) 3 pack UNSCH PRN TOP 04/10/17 22:00 (Evelyn-Colace) 1 tab BID PO 04/11/17 09:00 04/12/17 07:28 (Milk Of Magnesia Liq) 30 ml Q12H PRN PO 04/10/17 22:00 (Senokot) 17.2 mg Q12H PRN PO 04/10/17 22:00 (Dulcolax Supp) 10 mg DAILY PRN RECTAL 04/10/17 22:00 (Lactulose Liq) 30 ml DAILY PRN PO 04/10/17 22:00 (Trandate Inj) 20 mg Q4H PRN IV PUSH 04/12/17 08:15 04/14/17 08:56 (Apresoline Inj) 20 mg Q4H PRN IV PUSH 04/12/17 08:15 04/13/17 23:53 (Norvasc) 5 mg DAILY PO 04/12/17 09:00 04/14/17 08:55 Metoclopramide HCl 5 mg 5 mg Q8HR IV PUSH 04/12/17 16:00 04/14/17 13:06 Potassium Chloride 100 ml @ 50 mls/hr Q2H PRN IV 04/13/17 11:45 (KCl 20 Meq Premix Inj) 100 ml @ 50 mls/hr Q2H PRN IV 04/13/17 11:45 04/14/17 13:06 Potassium Bicarb/ Potassium Chloride 50 meq 50 meq UNSCH PRN PO 04/13/17 11:45 Potassium Chloride 100 ml @ 25 mls/hr UNSCH PRN IV 04/13/17 11:45 Potassium Chloride 100 ml @ 50 mls/hr Q2H PRN IV 04/13/17 11:45 (Magnesium Sulfate Inj/NS Inj) 100 ml @ 50 mls/hr UNSCH PRN IV 04/13/17 11:45 Magnesium Oxide 800 mg 800 mg UNSCH PRN PO 04/13/17 11:45 (Magnesium Sulfate Inj/NS Inj) 100 ml @ 50 mls/hr UNSCH PRN IV 04/13/17 11:45 Potassium Phosphate 2000 mg 2,000 mg Q4H PRN PO 04/13/17 11:45 (Sodium Phosphate Inj/NS 250 ml Inj) 250 ml @ 42 mls/hr UNSCH PRN IV 04/13/17 11:45 Potassium Phosphate 2000 mg 2,000 mg UNSCH PRN PO/TUBE 04/13/17 11:45 (Potassium Phosphate Inj/NS 250 ml Inj) 260 ml @ 42 mls/hr UNSCH PRN IV 04/13/17 11:45 (Apresoline) 100 mg Q8H PO 04/14/17 12:00 04/14/17 11:25 (Lopressor) 50 mg Q8HR PO 04/14/17 14:00 04/14/17 13:06 A/P Assessment and Plan Assessment: elderly female s/p Thalamic ICH with IVH. Neuro exam stable. Tight sbp control. frequent neuro checks. Intracranial bleed - Thalamic ICH with IVH extension, ICH score 3, No surgical intervention as per Dr. Wang, recommended to keep systolic blood pressure between 120 to 150 mm Hg. neuro checks and follow Neurology specialist recommendations Hypertension - Nicardipine drip wean to DC,Use PRN Labetalol and hydralazine. - Started Norvasc 5 mg daily 04/12. Add metoprolol 25 mg by mouth every 8 hours, hydralazine 50 mg by mouth every 8 hours starting today 04/13/17 - SBP goal less than 150-160 Electrolyte derangement - replaced and following. DVT GI prophylaxis - Teds SCDs - No pharmacological DVT prophylaxis due to acute ICH - Pepcid PT/OT/Speech consult Neurology consult sales manager [place] Follow Laboratory Discharge Planning Follow Specialist recommendations Percy Frank MD Apr 14, 2017 13:17
[2017-04-14] MEDS ORDERED: hydrALAZINE HCL 20 MG/ML VIAL IV PUSH ONE (17:15)
[2017-04-14] MEDS ORDERED: cloNIDine HCL 0.1 MG TAB PO ONE (17:15)
[2017-04-14] MEDS ORDERED: LABETALOL HCL 100 MG/20 ML VIAL IV PUSH ONE (17:15)
[2017-04-14] MEDS: hydrALAZINE HCL 20 MG/ML VIAL IV PUSH PRN (20:14)
[2017-04-14 20:36] LABS: CHOLESTEROL 164 MG/DL (120-200); TRIGLYCERIDES 54 MG/DL (42-150)
[2017-04-14 21:02] LABS: CHOLESTEROL/ HDL RATIO 2.26 RATIO; FOLATE 8.6 NG/ML (3.1-17.5); FREE T4 1.11 NG/DL (0.76-1.46); HDL CHOLESTEROL 72.5 MG/DL (40.0-60.0); LDL CHOLESTEROL 81 MG/DL (0-99)
[2017-04-14] MEDS: cloNIDine HCL 0.3 MG TAB PO SCH (21:30)
[2017-04-14] MEDS ORDERED: cloNIDine HCL 0.2 MG TAB PO SCH (22:00)
[2017-04-14] MEDS: hydrALAZINE HCL 100 MG TAB PO SCH (22:56)
[2017-04-15] VITALS (15 sets, daily range): BP systolic 157–196; BP diastolic 77–90; PULSE 56–81; RESP 19–23; TEMP 99.7–100.7; O2SAT 97–100
[2017-04-15] MEDS: hydrALAZINE HCL 20 MG/ML VIAL IV PUSH PRN ×3 (00:11→18:03)
[2017-04-15] MEDS: METOPROLOL TARTRATE 50 MG TAB PO SCH ×4 (00:38→20:22)
[2017-04-15] MEDS: ENALAPRILAT 1.25 MG/ML VIAL IV PUSH PRN ×3 (01:15→17:04)
[2017-04-15] MEDS: CHLORHEXIDINE GLUCONATE 2 % 1 PACK (2 CLOTHS) TOP SCH (04:00)
[2017-04-15] MEDS: hydrALAZINE HCL 100 MG TAB PO SCH ×4 (04:33→21:01)
[2017-04-15] MEDS: cloNIDine HCL 0.3 MG TAB PO SCH ×3 (04:33→22:02)
[2017-04-15 05:25] LABS: BICARBONATE 25.8 MEQ/L (21.0-32.0); CALCIUM 8.4 MG/DL (8.5-10.1); CREATININE 0.62 MG/DL (0.50-1.00); MAGNESIUM 2.3 MG/DL (1.5-2.5); PHOSPHORUS 2.9 MG/DL (2.5-4.9)
[2017-04-15] MEDS: NITROGLYCERIN 2% OINT 1 GM PACKET TOPICAL PRN ×2 (06:00→23:03)
[2017-04-15] MEDS: METOCLOPRAMIDE HCL 10 MG/2 ML VIAL IV PUSH SCH ×3 (06:00→21:01)
[2017-04-15] MEDS: DOCUSATE SODIUM 50 MG/SENNA 8.6 MG TAB PO SCH ×2 (07:52→20:22)
[2017-04-15] MEDS: SODIUM CHLORIDE 0.9% FLUSH 10 ML FLUSH SCH ×2 (08:03→20:22)
[2017-04-15] MEDS: FAMOTIDINE 20 MG/2 ML VIAL IV PUSH SCH ×2 (08:04→20:22)
[2017-04-15] MEDS: ACETAMINOPHEN 325 MG TAB PO PRN (12:22)
[2017-04-15 12:46] LABS: HEMOGLOBIN A1C 5.6 % (4.3-6.0)
--- NOTE | 2017-04-15 13:11 | HHI.PR ---
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 Unknown time of onset. Patient was found by children playing in the park. Upon EMS arrival they noted right-sided weakness with a leftward gaze. Patient is nonverbal, she is following commands and is moving her left upper and left lower extremity. EKG was performed in the field and shows ST elevations in V1 through V3 with ST depressions and T-wave inversions in V5 and V6, therefore STEMI alert was also called by EMS. Patient was also notably hypertensive with blood pressures of 250s over 150s. Upon arrival to the emergency department the patient is awake, nonverbal, follows commands, protecting her airway, is able to move her left arm and left leg, however is unable to move her right arm and right leg. Patient was started on a Cardene drip for suspected intracranial hemorrhage and promptly taken to CT scan. At 8:05 PM case was discussed by with on-call publishing specialist Dr. Quarles who agrees that this is most likely an intracranial hemorrhage based on clinical presentation, therefore STEMI alert was not initiated. CT of the head confirmed thalamic bleed with IVH extension. Subjective: 04/12: stable neuro exam. remains on cardene 5 mg per hour. PRN Hydralazine and labetalol added. Ct imaging yesterday stable. 04/13: Patient still on CCM service as Cardene was re started. Start PO metoprolol and hydralazine. Neuro exam unchanged Hospitalist Notes: 04/14: Patient seen in the presence of nurse Miss Hutchins, she states there is no relatives to notify and not able to get information about the patient, continue with Right hemiplegia and some activity on the left side, continue Obtunded, supportive care started by Insurance Follow Up Representative will continue present care will add Neurology specialist for recommendations. 04/15: Seen in her bedroom, no nausea, vomit or diarrhea, continue non verbal, Obtunded, uncontrolled blood pressure added Lisinopril Objective Vital Signs Date Time Temp Pulse Resp B/P Pulse Ox O2 Delivery O2 Flow Rate FiO2 04/15/17 12:00 100.7 73 19 164/77 100 04/15/17 12:00 73 04/15/17 10:00 73 04/15/17 09:45 157/82 04/15/17 09:00 178/84 04/15/17 08:57 100 21 04/15/17 08:00 99.9 77 22 196/90 98 04/15/17 08:00 81 04/15/17 06:00 60 04/15/17 04:00 99.7 56 19 175/90 98 04/15/17 04:00 56 04/15/17 02:00 65 04/15/17 00:00 99.8 57 23 170/81 97 04/15/17 00:00 57 04/14/17 22:00 72 04/14/17 20:52 99 04/14/17 20:00 80 04/14/17 20:00 99.0 80 19 172/84 97 04/14/17 18:00 77 04/14/17 16:00 98.6 72 20 168/93 99 04/14/17 16:00 72 04/14/17 14:00 80 I/O 04/14/17 04/14/17 04/14/17 04/15/17 04/15/17 04/15/17 07:00 15:00 23:00 07:00 15:00 23:00 Intake Total 1219 ml 960 ml 819 ml 870 ml Output Total 450 ml 450 ml 500 ml 400 ml Balance 769 ml 510 ml 319 ml 470 ml IV Total 761 ml 733 ml 218 ml 157 ml Tube Feeding 158 ml 167 ml 361 ml 353 ml Tube Irrigant 60 ml Other 300 ml 240 ml 360 ml Output Urine Total 450 ml 450 ml 500 ml 400 ml # Bowel Movements 1 1 1 0 Result Diagram: 04/11/17 0233 04/15/17 0422 Imaging Last Impressions Abdomen X-Ray 04/12/17 1538 Signed Impressions: Service Date/Time: Wednesday, April 12, 2017 17:29 - CONCLUSION: Nonobstructive bowel gas pattern. Suresh Zapata MD Head CT 04/11/17 0800 Signed Impressions: Service Date/Time: Tuesday, April 11, 2017 11:25 - CONCLUSION: 1. Stable intraparenchymal hemorrhage and intraventricular hemorrhage as described above. Timmy Dumas MD Chest X-Ray 04/10/171999 Signed Impressions: Service Date/Time: Monday, April 10, 2017 21:03 - CONCLUSION: No evidence of acute cardiopulmonary disease. Hu Henderson MD Neck CTA 04/10/17 0000 Signed Impressions: Service Date/Time: Monday, April 10, 2017 22:28 - CONCLUSION: The internal carotid arteries are normal bilaterally. No significant atherosclerotic disease is noted. Eliud Du MD Head CTA 04/10/17 0000 Signed Impressions: Service Date/Time: Monday, April 10, 2017 22:50 - CONCLUSION: Mild dilatation of the basilar tip without discrete aneurysm. Some narrowing of the left middle cerebral branch after the bifurcation. Prominent left thalamic hemorrhage. Eliud Du MD Procedures No procedures performed Other Results Laboratory Tests Test 04/10/17 04/11/17 04/11/17 04/14/17 23:30 02:33 10:31 03:38 Nasal Screen MRSA (PCR) MRSA NOT DETECTED White Blood Count 5.9 TH/MM3 Red Blood Count 4.99 MIL/MM3 Hemoglobin 14.7 GM/DL Hematocrit 44.7 % Mean Corpuscular Volume 89.5 FL Mean Corpuscular Hemoglobin 29.4 PG Mean Corpuscular Hemoglobin 32.8 % Concent Red Cell Distribution Width 13.5 % Platelet Count 158 TH/MM3 Mean Platelet Volume 10.0 FL Neutrophils (%) (Auto) 67.8 % Lymphocytes (%) (Auto) 22.1 % Monocytes (%) (Auto) 9.4 % Eosinophils (%) (Auto) 0.2 % Basophils (%) (Auto) 0.5 % Neutrophils # (Auto) 4.0 TH/MM3 Lymphocytes # (Auto) 1.3 TH/MM3 Monocytes # (Auto) 0.6 TH/MM3 Eosinophils # (Auto) 0.0 TH/MM3 Basophils # (Auto) 0.0 TH/MM3 CBC Comment DIFF FINAL Differential Comment Prothrombin Time 11.9 SEC Prothromb Time International 1.1 RATIO Ratio Troponin I 0.03 NG/ML Total Bilirubin 0.6 MG/DL Aspartate Amino Transf 32 U/L (AST/SGOT) Alanine Aminotransferase 31 U/L (ALT/SGPT) Alkaline Phosphatase 67 U/L Total Protein 6.7 GM/DL Albumin 3.2 GM/DL Test 04/14/17 04/15/17 20:01 04:22 Hemoglobin A1c 5.6 % Triglycerides Level 54 MG/DL Cholesterol Level 164 MG/DL LDL Cholesterol 81 MG/DL HDL Cholesterol 72.5 MG/DL Cholesterol/HDL Ratio 2.26 RATIO Vitamin B12 Level 228 PG/ML Folate 8.6 NG/ML Free Thyroxine 1.11 NG/DL Thyroid Stimulating Hormone 2.360 uIU/ML 3rd Gen Sodium Level 140 MEQ/L Potassium Level 4.2 MEQ/L Chloride Level 108 MEQ/L Carbon Dioxide Level 25.8 MEQ/L Anion Gap 6 MEQ/L Blood Urea Nitrogen 21 MG/DL Creatinine 0.62 MG/DL Estimat Glomerular Filtration 100 ML/MIN Rate Random Glucose 126 MG/DL Calcium Level 8.4 MG/DL Phosphorus Level 2.9 MG/DL Magnesium Level 2.3 MG/DL Objective Remarks GENERAL: Well-nourished, well-developed patient. Nonverbal SKIN: Warm and dry. HEAD: Normocephalic. NG tube in place. EYES: No scleral icterus. No injection or drainage. NECK: trachea midline. No JVD. CARDIOVASCULAR: Regular rate and rhythm without murmurs, gallops, or rubs. Remains hypotensive RESPIRATORY: Breath sounds equal bilaterally. No accessory muscle use. GASTROINTESTINAL: Abdomen soft, non-tender, nondistended. MUSCULOSKELETAL: No cyanosis, or edema. EXTREMITIES: No clubbing cyanosis or edema, NEURO: at this time Obtunded not following commands. Medications and IVs Current Medications Medications (Trade) Dose Ordered Sig/Reymundo Route Start Time Stop Time Status Last Admin (NS Flush) 2 ml UNSCH PRN .XX 04/10/17 22:00 (NS Flush) 2 ml BID .XX 04/11/17 09:00 04/15/17 08:03 (Tylenol) 650 mg Q6H PRN PO 04/10/17 22:00 04/15/17 12:22 (Morphine Inj) 2 mg Q2H PRN IV 04/10/17 22:00 (Pepcid Inj) 20 mg Q12HR IV PUSH 04/11/17 09:00 04/15/17 08:04 (Zofran Inj) 4 mg Q6H PRN IV 04/10/17 22:00 (Reglan Inj) 10 mg Q6H PRN IV 04/10/17 22:00 (Compazine Supp) 25 mg Q12H PRN RECTAL 04/10/17 22:00 Miscellaneous Information 1 Q361D XX 04/10/17 22:00 04/10/17 22:00 (Chlorhexidine 2% Cloth) 3 pack Taper DAILY@04 TOP 04/11/17 04:00 04/07/18 03:59 04/15/17 04:00 (Chlorhexidine 2% Cloth) 3 pack UNSCH PRN TOP 04/10/17 22:00 (Evelyn-Colace) 1 tab BID PO 04/11/17 09:00 04/12/17 07:28 (Milk Of Magnesia Liq) 30 ml Q12H PRN PO 04/10/17 22:00 (Senokot) 17.2 mg Q12H PRN PO 04/10/17 22:00 (Dulcolax Supp) 10 mg DAILY PRN RECTAL 04/10/17 22:00 (Lactulose Liq) 30 ml DAILY PRN PO 04/10/17 22:00 (Trandate Inj) 20 mg Q4H PRN IV PUSH 04/12/17 08:15 04/14/17 17:24 (Apresoline Inj) 20 mg Q4H PRN IV PUSH 04/12/17 08:15 04/15/17 12:01 Metoclopramide HCl 5 mg 5 mg Q8HR IV PUSH 04/12/17 16:00 04/14/17 13:06 Potassium Chloride 100 ml @ 50 mls/hr Q2H PRN IV 04/13/17 11:45 (KCl 20 Meq Premix Inj) 100 ml @ 50 mls/hr Q2H PRN IV 04/13/17 11:45 04/14/17 13:06 Potassium Bicarb/ Potassium Chloride 50 meq 50 meq UNSCH PRN PO 04/13/17 11:45 Potassium Chloride 100 ml @ 25 mls/hr UNSCH PRN IV 04/13/17 11:45 Potassium Chloride 100 ml @ 50 mls/hr Q2H PRN IV 04/13/17 11:45 (Magnesium Sulfate Inj/NS Inj) 100 ml @ 50 mls/hr UNSCH PRN IV 04/13/17 11:45 Magnesium Oxide 800 mg 800 mg UNSCH PRN PO 04/13/17 11:45 (Magnesium Sulfate Inj/NS Inj) 100 ml @ 50 mls/hr UNSCH PRN IV 04/13/17 11:45 Potassium Phosphate 2000 mg 2,000 mg Q4H PRN PO 04/13/17 11:45 (Sodium Phosphate Inj/NS 250 ml Inj) 250 ml @ 42 mls/hr UNSCH PRN IV 04/13/17 11:45 Potassium Phosphate 2000 mg 2,000 mg UNSCH PRN PO/TUBE 04/13/17 11:45 (Potassium Phosphate Inj/NS 250 ml Inj) 260 ml @ 42 mls/hr UNSCH PRN IV 04/13/17 11:45 (Lopressor) 50 mg Q8HR PO 04/14/17 14:00 04/15/17 00:38 (Catapres) 0.3 mg Q8HR PO 04/14/17 22:00 04/15/17 04:33 (Apresoline) 100 mg Q6HR PO 04/15/17 00:00 04/15/17 10:39 (Norvasc) 10 mg DAILY PO 04/14/17 19:45 04/15/17 08:04 (Vasotec Inj) 1.25 mg Q6H PRN IV PUSH 04/15/17 01:15 04/15/17 08:04 (Nitroglycerin 2% Oint) 2 inch Q6HR PRN TOPICAL 04/15/17 06:00 04/15/17 06:00 A/P Assessment and Plan Assessment: elderly female s/p Thalamic ICH with IVH. Neuro exam stable. Tight sbp control. frequent neuro checks. Intracranial bleed - Thalamic ICH with IVH extension, ICH score 3, No surgical intervention as per Dr. Wang, recommended to keep systolic blood pressure between 120 to 150 mm Hg. neuro checks and follow Neurology specialist recommendations Hypertension - Nicardipine drip wean to DC,Use PRN Labetalol and hydralazine. - Started Norvasc 5 mg daily 04/12. Add metoprolol 25 mg by mouth every 8 hours, hydralazine 50 mg by mouth every 8 hours starting today 04/13/17 - SBP goal less than 150-160, added Lisinopril to try to keep her blood pressure under control Electrolyte derangement - replaced and following. DVT GI prophylaxis - Teds SCDs - No pharmacological DVT prophylaxis due to acute ICH - Pepcid laboratory reviewed and no new issues. Discussed with nurse trying to keep blood pressure under control. Neurology specialist consulted. PT/OT/Speech Discharge Planning Follow Specialist recommendations Percy Frank MD Apr 15, 2017 13:11
[2017-04-15] MEDS: LISINOPRIL 20 MG TAB PO SCH (16:11)
--- NOTE | 2017-04-15 18:32 | MB ---
cc: CHAPIS RAUSCH DATE OF CONSULTATION 04/15/17 REASON FOR CONSULTATION Thalamic hemorrhage. HISTORY OF PRESENT ILLNESS This is a patient who was found with alteration in mental status and right-sided weakness and was brought to the hospital. She was found to have a large hemorrhage in the left thalamic nucleus with intraventricular extension and head CT with 7 mm of midline shift. CT angiogram was obtained of the brain which was normal and CT angiogram of the neck was normal with no significant stenosis. She initially was very hypertensive, blood pressure of 250/150 which has been controlled with Cardene. NEUROLOGIC EXAMINATION Current blood pressure is 150/75, pulse is 73, respiratory rate is 19, temperature is 100.75. Higher cortical function: The patient does arouse to voice and opens her eyes but does not follow any commands. There is no speech. Cranial nerves: The pupils are 2 mm symmetrical and reactive. She does have a right facial droop. On motor exam, she is not moving the right arm or right leg but does withdraw the left arm and left leg to pain. Reflexes are symmetric. LABORATORY DATA White count is 5900, hemoglobin 14.7, hematocrit 44.7%, platelet count 158,000. Sodium is 140, potassium 4.2, chloride 108, CO2 25.8, BUN is 21, creatinine 0.62, GFR is 100, glucose 126. LDL is 81, cholesterol 72, HDL cholesterol 72, total cholesterol 164, B12 228, PT 11.9, INR 1.1, APTT 25.9. Tox screen is negative. IMPRESSION Left thalamic hemorrhage with intraventricular extension, suspect probable hypertensive hemorrhage. RECOMMENDATION Continue blood pressure control with systolic under 150. Follow up CT of the brain as well to rule out obstructive hydrocephalus. MD JINA Hoskins/ /3:38 PM /6:20 PM
[2017-04-15] MEDS: LABETALOL HCL 100 MG/20 ML VIAL IV PUSH PRN (18:51)
[2017-04-16] VITALS (14 sets, daily range): BP systolic 158–182; BP diastolic 83–90; PULSE 55–88; RESP 18–26; TEMP 97.9–100.4; O2SAT 96–99
[2017-04-16] MEDS: ENALAPRILAT 1.25 MG/ML VIAL IV PUSH PRN ×2 (00:06→12:33)
[2017-04-16] MEDS: ACETAMINOPHEN 325 MG TAB PO PRN (00:20)
[2017-04-16] MEDS: hydrALAZINE HCL 20 MG/ML VIAL IV PUSH PRN ×2 (02:03→17:38)
[2017-04-16] MEDS: CHLORHEXIDINE GLUCONATE 2 % 1 PACK (2 CLOTHS) TOP SCH (03:02)
[2017-04-16] MEDS: LABETALOL HCL 100 MG/20 ML VIAL IV PUSH PRN ×2 (04:03→15:12)
[2017-04-16] MEDS: hydrALAZINE HCL 100 MG TAB PO SCH ×3 (05:12→21:22)
[2017-04-16] MEDS: METOCLOPRAMIDE HCL 10 MG/2 ML VIAL IV PUSH SCH ×3 (05:12→21:22)
[2017-04-16] MEDS: cloNIDine HCL 0.3 MG TAB PO SCH ×3 (05:12→21:22)
[2017-04-16] MEDS: METOPROLOL TARTRATE 50 MG TAB PO SCH ×3 (06:01→21:22)
[2017-04-16] MEDS: DOCUSATE SODIUM 50 MG/SENNA 8.6 MG TAB PO SCH ×2 (08:32→21:22)
[2017-04-16] MEDS: FAMOTIDINE 20 MG/2 ML VIAL IV PUSH SCH ×2 (08:32→21:22)
[2017-04-16] MEDS: SODIUM CHLORIDE 0.9% FLUSH 10 ML FLUSH SCH ×2 (08:32→21:23)
[2017-04-16] MEDS: LISINOPRIL 20 MG TAB PO SCH ×2 (08:32→21:23)
[2017-04-16] MEDS: NITROGLYCERIN 2% OINT 1 GM PACKET TOPICAL PRN (12:34)
--- NOTE | 2017-04-16 14:12 | HHI.PR ---
Review/Management Diagnosis left thalamic hemorrhage with intraventricular extension Plan recheck CT continue BP control Diagnosis/Plan: Subjective Subjective Comments No acute events reported Active Medications Current Medications Medications (Trade) Dose Ordered Sig/Reymundo Route Start Time Stop Time Status Last Admin (NS Flush) 2 ml UNSCH PRN .XX 04/10/17 22:00 (NS Flush) 2 ml BID .XX 04/11/17 09:00 04/16/17 08:32 (Tylenol) 650 mg Q6H PRN PO 04/10/17 22:00 04/16/17 00:20 (Morphine Inj) 2 mg Q2H PRN IV 04/10/17 22:00 (Pepcid Inj) 20 mg Q12HR IV PUSH 04/11/17 09:00 04/16/17 08:32 (Zofran Inj) 4 mg Q6H PRN IV 04/10/17 22:00 (Reglan Inj) 10 mg Q6H PRN IV 04/10/17 22:00 (Compazine Supp) 25 mg Q12H PRN RECTAL 04/10/17 22:00 Miscellaneous Information 1 Q361D XX 04/10/17 22:00 04/10/17 22:00 (Chlorhexidine 2% Cloth) Taper DAILY@04 TOP 04/11/17 04:00 04/07/18 03:59 04/16/17 03:02 (Chlorhexidine 2% Cloth) 3 pack UNSCH PRN TOP 04/10/17 22:00 (Evelyn-Colace) 1 tab BID PO 04/11/17 09:00 04/16/17 08:32 (Milk Of Magnesia Liq) 30 ml Q12H PRN PO 04/10/17 22:00 (Senokot) 17.2 mg Q12H PRN PO 04/10/17 22:00 (Dulcolax Supp) 10 mg DAILY PRN RECTAL 04/10/17 22:00 (Lactulose Liq) 30 ml DAILY PRN PO 04/10/17 22:00 (Trandate Inj) 20 mg Q4H PRN IV PUSH 04/12/17 08:15 04/16/17 04:03 (Apresoline Inj) 20 mg Q4H PRN IV PUSH 04/12/17 08:15 04/16/17 02:03 Metoclopramide HCl 5 mg 5 mg Q8HR IV PUSH 04/12/17 16:00 04/15/17 13:31 Potassium Chloride 100 ml @ 50 mls/hr Q2H PRN IV 04/13/17 11:45 (KCl 20 Meq Premix Inj) 100 ml @ 50 mls/hr Q2H PRN IV 04/13/17 11:45 04/14/17 13:06 Potassium Bicarb/ Potassium Chloride 50 meq 50 meq UNSCH PRN PO 04/13/17 11:45 Potassium Chloride 100 ml @ 25 mls/hr UNSCH PRN IV 04/13/17 11:45 Potassium Chloride 100 ml @ 50 mls/hr Q2H PRN IV 04/13/17 11:45 (Magnesium Sulfate Inj/NS Inj) 100 ml @ 50 mls/hr UNSCH PRN IV 04/13/17 11:45 Magnesium Oxide 800 mg 800 mg UNSCH PRN PO 04/13/17 11:45 (Magnesium Sulfate Inj/NS Inj) 100 ml @ 50 mls/hr UNSCH PRN IV 04/13/17 11:45 Potassium Phosphate 2000 mg 2,000 mg Q4H PRN PO 04/13/17 11:45 (Sodium Phosphate Inj/NS 250 ml Inj) 250 ml @ 42 mls/hr UNSCH PRN IV 04/13/17 11:45 Potassium Phosphate 2000 mg 2,000 mg UNSCH PRN PO/TUBE 04/13/17 11:45 (Potassium Phosphate Inj/NS 250 ml Inj) 260 ml @ 42 mls/hr UNSCH PRN IV 04/13/17 11:45 (Lopressor) 50 mg Q8HR PO 04/14/17 14:00 04/16/17 06:01 (Catapres) 0.3 mg Q8HR PO 04/14/17 22:00 04/16/17 05:12 (Norvasc) 10 mg DAILY PO 04/14/17 19:45 04/16/17 08:32 (Vasotec Inj) 1.25 mg Q6H PRN IV PUSH 04/15/17 01:15 04/16/17 12:33 (Nitroglycerin 2% Oint) 2 inch Q6HR PRN TOPICAL 04/15/17 06:00 04/16/17 12:34 (Apresoline) 100 mg Q8HR PO 04/15/17 14:00 04/16/17 05:12 (Prinivil) 20 mg DAILY PO 04/15/17 13:30 04/16/17 08:32 Allergies Allergies Coded Allergies UNOBTAINABLE (Unverified04/10/17) Exam I&O / VS 04/15/17 04/15/17 04/16/17 15:00 23:00 07:00 Intake Total 824 ml 859 ml 822 ml Output Total 425 ml 500 ml 450 ml Balance 399 ml 359 ml 372 ml IV Total 153 ml 109 ml 150 ml Tube Feeding 411 ml 510 ml 432 ml Other 260 ml 240 ml 240 ml Output Urine Total 425 ml 500 ml 450 ml # Bowel Movements 0 1 0 Vital Signs Date Time Temp Pulse Resp B/P Pulse Ox O2 Delivery O2 Flow Rate FiO2 04/16/17 12:00 69 04/16/17 10:41 99 21 04/16/17 10:00 65 04/16/17 08:00 58 04/16/17 08:00 98.4 58 26 170/90 99 04/16/17 06:00 67 04/16/17 04:00 70 04/16/17 04:00 98.2 70 18 168/83 97 04/16/17 02:00 55 04/16/17 00:00 61 04/16/17 00:00 100.4 61 19 175/87 97 04/15/17 22:00 60 04/15/17 20:00 99.9 73 19 166/84 97 04/15/17 20:00 73 04/15/17 18:00 80 04/15/17 16:00 99.8 65 21 167/87 98 04/15/17 16:00 65 Exam Comments lethargic, follow simple commands Pupils 2 mm symmetric and reactive with left gaze preference Out Patient Therapist voluntarily left but not right Jonathan Ravi PhD Apr 16, 2017 14:12
--- NOTE | 2017-04-16 14:56 | HHI.PR ---
Subjective Remarks retention specialist Notes: Middle-aged very pleasant female brought in by ambulance after being found in a park sitting next to a bench with altered mental status. Unknown time of onset. Patient was found by children playing in the park. Upon EMS arrival they noted right-sided weakness with a leftward gaze. Patient is nonverbal, she is following commands and is moving her left upper and left lower extremity. EKG was performed in the field and shows ST elevations in V1 through V3 with ST depressions and T-wave inversions in V5 and V6, therefore STEMI alert was also called by EMS. Patient was also notably hypertensive with blood pressures of 250s over 150s. Upon arrival to the emergency department the patient is awake, nonverbal, follows commands, protecting her airway, is able to move her left arm and left leg, however is unable to move her right arm and right leg. Patient was started on a Cardene drip for suspected intracranial hemorrhage and promptly taken to CT scan. At 8:05 PM case was discussed by with on-call gas tester Dr. Quarles who agrees that this is most likely an intracranial hemorrhage based on clinical presentation, therefore STEMI alert was not initiated. CT of the head confirmed thalamic bleed with IVH extension. Subjective: 04/12: stable neuro exam. remains on cardene 5 mg per hour. PRN Hydralazine and labetalol added. Ct imaging yesterday stable. 04/13: Patient still on CCM service as Cardene was re started. Start PO metoprolol and hydralazine. Neuro exam unchanged Hospitalist Notes: 04/14: Patient seen in the presence of nurse Miss Hutchins, she states there is no relatives to notify and not able to get information about the patient, continue with Right hemiplegia and some activity on the left side, continue Obtunded, supportive care started by Sleeve Ironer will continue present care will add Neurology specialist for recommendations. 04/15: Seen in her bedroom, no nausea, vomit or diarrhea, continue non verbal, Obtunded, uncontrolled blood pressure added Lisinopril 04/16: Patient seen with nurse, at this time Lethargic awake when touched on the left side of her body, opens her eyes, did not follow commands for us. Objective Vital Signs Date Time Temp Pulse Resp B/P Pulse Ox O2 Delivery O2 Flow Rate FiO2 04/16/17 14:00 68 04/16/17 12:00 69 04/16/17 10:41 99 21 04/16/17 10:00 65 04/16/17 08:00 58 04/16/17 08:00 98.4 58 26 170/90 99 04/16/17 06:00 67 04/16/17 04:00 70 04/16/17 04:00 98.2 70 18 168/83 97 04/16/17 02:00 55 04/16/17 00:00 61 04/16/17 00:00 100.4 61 19 175/87 97 04/15/17 22:00 60 04/15/17 20:00 99.9 73 19 166/84 97 04/15/17 20:00 73 04/15/17 18:00 80 04/15/17 16:00 99.8 65 21 167/87 98 04/15/17 16:00 65 I/O 04/15/17 04/15/17 04/15/17 04/16/17 04/16/17 04/16/17 07:00 15:00 23:00 07:00 15:00 23:00 Intake Total 870 ml 824 ml 859 ml 822 ml Output Total 400 ml 425 ml 500 ml 450 ml Balance 470 ml 399 ml 359 ml 372 ml IV Total 157 ml 153 ml 109 ml 150 ml Tube Feeding 353 ml 411 ml 510 ml 432 ml Other 360 ml 260 ml 240 ml 240 ml Output Urine Total 400 ml 425 ml 500 ml 450 ml # Bowel Movements 0 0 1 0 Result Diagram: 04/15/17 0422 Imaging Last Impressions Abdomen X-Ray 04/12/17 1538 Signed Impressions: Service Date/Time: Wednesday, April 12, 2017 17:29 - CONCLUSION: Nonobstructive bowel gas pattern. Suresh Zapata MD Head CT 04/11/17 0800 Signed Impressions: Service Date/Time: Tuesday, April 11, 2017 11:25 - CONCLUSION: 1. Stable intraparenchymal hemorrhage and intraventricular hemorrhage as described above. Timmy Dumas MD Chest X-Ray 04/10/171999 Signed Impressions: Service Date/Time: Monday, April 10, 2017 21:03 - CONCLUSION: No evidence of acute cardiopulmonary disease. Hu Henderson MD Neck CTA 04/10/17 0000 Signed Impressions: Service Date/Time: Monday, April 10, 2017 22:28 - CONCLUSION: The internal carotid arteries are normal bilaterally. No significant atherosclerotic disease is noted. Eliud Du MD Head CTA 04/10/17 0000 Signed Impressions: Service Date/Time: Monday, April 10, 2017 22:50 - CONCLUSION: Mild dilatation of the basilar tip without discrete aneurysm. Some narrowing of the left middle cerebral branch after the bifurcation. Prominent left thalamic hemorrhage. Eliud Du MD Procedures No procedures performed Other Results Laboratory Tests Test 04/14/17 04/14/17 04/15/17 03:38 20:01 04:22 Total Bilirubin 0.6 MG/DL Aspartate Amino Transf 32 U/L (AST/SGOT) Alanine Aminotransferase 31 U/L (ALT/SGPT) Alkaline Phosphatase 67 U/L Total Protein 6.7 GM/DL Albumin 3.2 GM/DL Hemoglobin A1c 5.6 % Triglycerides Level 54 MG/DL Cholesterol Level 164 MG/DL LDL Cholesterol 81 MG/DL HDL Cholesterol 72.5 MG/DL Cholesterol/HDL Ratio 2.26 RATIO Vitamin B12 Level 228 PG/ML Folate 8.6 NG/ML Free Thyroxine 1.11 NG/DL Thyroid Stimulating Hormone 2.360 uIU/ML 3rd Gen Sodium Level 140 MEQ/L Potassium Level 4.2 MEQ/L Chloride Level 108 MEQ/L Carbon Dioxide Level 25.8 MEQ/L Anion Gap 6 MEQ/L Blood Urea Nitrogen 21 MG/DL Creatinine 0.62 MG/DL Estimat Glomerular Filtration 100 ML/MIN Rate Random Glucose 126 MG/DL Calcium Level 8.4 MG/DL Phosphorus Level 2.9 MG/DL Magnesium Level 2.3 MG/DL Objective Remarks GENERAL: Well-nourished, well-developed patient. Nonverbal SKIN: Warm and dry. HEAD: Normocephalic. NG tube in place. EYES: No scleral icterus. No injection or drainage. NECK: trachea midline. No JVD. CARDIOVASCULAR: Regular rate and rhythm without murmurs, gallops, or rubs. Remains hypotensive RESPIRATORY: Breath sounds equal bilaterally. No accessory muscle use. GASTROINTESTINAL: Abdomen soft, non-tender, nondistended. MUSCULOSKELETAL: No cyanosis, or edema. EXTREMITIES: No clubbing cyanosis or edema, NEURO: Lethargic. Medications and IVs Current Medications Medications (Trade) Dose Ordered Sig/Reymundo Route Start Time Stop Time Status Last Admin (NS Flush) 2 ml UNSCH PRN .XX 04/10/17 22:00 (NS Flush) 2 ml BID .XX 04/11/17 09:00 04/16/17 08:32 (Tylenol) 650 mg Q6H PRN PO 04/10/17 22:00 04/16/17 00:20 (Morphine Inj) 2 mg Q2H PRN IV 04/10/17 22:00 (Pepcid Inj) 20 mg Q12HR IV PUSH 04/11/17 09:00 04/16/17 08:32 (Zofran Inj) 4 mg Q6H PRN IV 04/10/17 22:00 (Reglan Inj) 10 mg Q6H PRN IV 04/10/17 22:00 (Compazine Supp) 25 mg Q12H PRN RECTAL 04/10/17 22:00 Miscellaneous Information 1 Q361D XX 04/10/17 22:00 04/10/17 22:00 (Chlorhexidine 2% Cloth) Taper DAILY@04 TOP 04/11/17 04:00 04/07/18 03:59 04/16/17 03:02 (Chlorhexidine 2% Cloth) 3 pack UNSCH PRN TOP 04/10/17 22:00 (Evelyn-Colace) 1 tab BID PO 04/11/17 09:00 04/16/17 08:32 (Milk Of Magnesia Liq) 30 ml Q12H PRN PO 04/10/17 22:00 (Senokot) 17.2 mg Q12H PRN PO 04/10/17 22:00 (Dulcolax Supp) 10 mg DAILY PRN RECTAL 04/10/17 22:00 (Lactulose Liq) 30 ml DAILY PRN PO 04/10/17 22:00 (Trandate Inj) 20 mg Q4H PRN IV PUSH 04/12/17 08:15 04/16/17 04:03 (Apresoline Inj) 20 mg Q4H PRN IV PUSH 04/12/17 08:15 04/16/17 02:03 Metoclopramide HCl 5 mg 5 mg Q8HR IV PUSH 04/12/17 16:00 04/16/17 14:20 Potassium Chloride 100 ml @ 50 mls/hr Q2H PRN IV 04/13/17 11:45 (KCl 20 Meq Premix Inj) 100 ml @ 50 mls/hr Q2H PRN IV 04/13/17 11:45 04/14/17 13:06 Potassium Bicarb/ Potassium Chloride 50 meq 50 meq UNSCH PRN PO 04/13/17 11:45 Potassium Chloride 100 ml @ 25 mls/hr UNSCH PRN IV 04/13/17 11:45 Potassium Chloride 100 ml @ 50 mls/hr Q2H PRN IV 04/13/17 11:45 (Magnesium Sulfate Inj/NS Inj) 100 ml @ 50 mls/hr UNSCH PRN IV 04/13/17 11:45 Magnesium Oxide 800 mg 800 mg UNSCH PRN PO 04/13/17 11:45 (Magnesium Sulfate Inj/NS Inj) 100 ml @ 50 mls/hr UNSCH PRN IV 04/13/17 11:45 Potassium Phosphate 2000 mg 2,000 mg Q4H PRN PO 04/13/17 11:45 (Sodium Phosphate Inj/NS 250 ml Inj) 250 ml @ 42 mls/hr UNSCH PRN IV 04/13/17 11:45 Potassium Phosphate 2000 mg 2,000 mg UNSCH PRN PO/TUBE 04/13/17 11:45 (Potassium Phosphate Inj/NS 250 ml Inj) 260 ml @ 42 mls/hr UNSCH PRN IV 04/13/17 11:45 (Lopressor) 50 mg Q8HR PO 04/14/17 14:00 04/16/17 14:19 (Catapres) 0.3 mg Q8HR PO 04/14/17 22:00 04/16/17 14:20 (Norvasc) 10 mg DAILY PO 04/14/17 19:45 04/16/17 08:32 (Vasotec Inj) 1.25 mg Q6H PRN IV PUSH 04/15/17 01:15 04/16/17 12:33 (Nitroglycerin 2% Oint) 2 inch Q6HR PRN TOPICAL 04/15/17 06:00 04/16/17 12:34 (Apresoline) 100 mg Q8HR PO 04/15/17 14:00 04/16/17 14:19 (Prinivil) 20 mg DAILY PO 04/15/17 13:30 04/16/17 08:32 A/P Assessment and Plan Intracranial bleed - Thalamic ICH with IVH extension, ICH score 3, No surgical intervention as per Dr. Wang, recommended to keep systolic blood pressure between 120 to 150 mm Hg. neuro checks and follow Neurology specialist recommendations, Lisinopril 40 mg BID. as per Neurology to get a new CT brain. Hypertensive Urgency. - Nicardipine drip wean to DC,Use PRN Labetalol and hydralazine. - Started Norvasc 5 mg daily 04/12. Add metoprolol 25 mg by mouth every 8 hours, hydralazine 50 mg by mouth every 8 hours starting today 04/13/17 - SBP goal less than 150-160, added Lisinopril to try to keep her blood pressure under control Electrolyte derangement - replaced and following. DVT GI prophylaxis - Teds SCDs - No pharmacological DVT prophylaxis due to acute ICH - Pepcid PT/OT/Speech Discharge Planning Follow Specialist recommendations Percy Frank MD Apr 16, 2017 14:56 PT/OT/Speech Discharge Planning Follow Specialist recommendations Percy Frank MD Apr 16, 2017 14:56
[2017-04-16] MEDS ORDERED: LISINOPRIL 20 MG TAB PO ONE (15:00)
[2017-04-17] VITALS (13 sets, daily range): BP systolic 136–178; BP diastolic 80–97; PULSE 57–74; RESP 17–20; TEMP 98.2–100.3; O2SAT 96–99
[2017-04-17] MEDS: ENALAPRILAT 1.25 MG/ML VIAL IV PUSH PRN (01:47)
[2017-04-17] MEDS: LABETALOL HCL 100 MG/20 ML VIAL IV PUSH PRN (02:24)
[2017-04-17] MEDS: CHLORHEXIDINE GLUCONATE 2 % 1 PACK (2 CLOTHS) TOP SCH (04:00)
[2017-04-17] MEDS: METOPROLOL TARTRATE 50 MG TAB PO SCH ×3 (05:24→21:56)
[2017-04-17] MEDS: hydrALAZINE HCL 100 MG TAB PO SCH ×3 (05:24→21:56)
[2017-04-17] MEDS: cloNIDine HCL 0.3 MG TAB PO SCH ×3 (05:24→21:57)
[2017-04-17] MEDS: METOCLOPRAMIDE HCL 10 MG/2 ML VIAL IV PUSH SCH ×3 (05:25→21:57)
[2017-04-17] MEDS: SODIUM CHLORIDE 0.9% FLUSH 10 ML FLUSH SCH ×2 (09:00→21:00)
[2017-04-17] MEDS: DOCUSATE SODIUM 50 MG/SENNA 8.6 MG TAB PO SCH ×2 (09:22→21:00)
[2017-04-17] MEDS: FAMOTIDINE 20 MG/2 ML VIAL IV PUSH SCH ×2 (09:23→21:57)
[2017-04-17] MEDS: LISINOPRIL 20 MG TAB PO SCH ×2 (09:23→21:57)
--- NOTE | 2017-04-17 09:32 | RADRPT ---
EXAM DATE/TIME: 04/17/2017 08:19 [place] COMPARISON: CT BRAIN W/O CONTRAST, April 11, 2017, 11:25. INDICATIONS : Hemorrhage follow up. RADIATION DOSE: 44.37 CTDIvol (mGy) MEDICAL HISTORY : Non-responsive. SURGICAL HISTORY : Non-responsive. ENCOUNTER: Subsequent ACUITY: 1 week PAIN SCALE: Non-responsive LOCATION: Cranial TECHNIQUE: Multiple contiguous axial images were obtained of the head. Using automated exposure control and adj ustment of the mA and/or kV according to patient size, radiation dose was kept as low as reasonably a chievable to obtain optimal diagnostic quality images. FINDINGS: There is a persistent hyper dense area within the left basal ganglia measuring 4.7 x 2.5 cm which is slightly decreased in overall size compared to the previous examination. There is persistent acute intraventr icular hemorrhage which is also decreased in volume compared to the previous examination. There is interval decrease in subfalcine herniation to the right which now measures 4 mm. There is slight ventriculomegaly comp ared to the previous examination suggesting central cerebral atrophy versus hydrocephalus. Clinical correlation is recommended. Moderate periventricular and subcortical white matter small vessel ischemic changes are noted bilaterally. CONCLUSION: 1. Slight interval decrease in the size of the large acute intraparenchymal hemorrhage within the le ft basal ganglia which now measures 4.7 x 2.5 cm. There has also been decrease in the volume of the acute intraventricular hemorrhage and decrease in the subfalcine herniation to the right which now me asures 4 mm. 2. Moderate periventricular and subcortical white matter small vessel ischemic changes bilaterally. 3. Mild ventriculomegaly suggesting central cerebral atrophy versus mild hydrocephalus. Clinical co rrelation is recommended. Denny Hart MD on April 17, 2017 at 9:16 Board Certified Radiologist. This report was verified electronically.
[2017-04-17] MEDS: ACETAMINOPHEN 325 MG TAB PO PRN (13:19)
--- NOTE | 2017-04-17 14:42 | HHI.PR ---
Subjective Remarks copy center specialist Notes: Middle-aged very pleasant female brought in by ambulance after being found in a park sitting next to a bench with altered mental status. Unknown time of onset. Patient was found by children playing in the park. Upon EMS arrival they noted right-sided weakness with a leftward gaze. Patient is nonverbal, she is following commands and is moving her left upper and left lower extremity. EKG was performed in the field and shows ST elevations in V1 through V3 with ST depressions and T-wave inversions in V5 and V6, therefore STEMI alert was also called by EMS. Patient was also notably hypertensive with blood pressures of 250s over 150s. Upon arrival to the emergency department the patient is awake, nonverbal, follows commands, protecting her airway, is able to move her left arm and left leg, however is unable to move her right arm and right leg. Patient was started on a Cardene drip for suspected intracranial hemorrhage and promptly taken to CT scan. At 8:05 PM case was discussed by with on-call skein yarn dyer helper Dr. Quarles who agrees that this is most likely an intracranial hemorrhage based on clinical presentation, therefore STEMI alert was not initiated. CT of the head confirmed thalamic bleed with IVH extension. Subjective: 04/12: stable neuro exam. remains on cardene 5 mg per hour. PRN Hydralazine and labetalol added. Ct imaging yesterday stable. 04/13: Patient still on CCM service as Cardene was re started. Start PO metoprolol and hydralazine. Neuro exam unchanged Hospitalist Notes: 04/14: Patient seen in the presence of nurse Miss Hutchins, she states there is no relatives to notify and not able to get information about the patient, continue with Right hemiplegia and some activity on the left side, continue Obtunded, supportive care started by [employer] Teacher will continue present care will add Neurology specialist for recommendations. 04/15: Seen in her bedroom, no nausea, vomit or diarrhea, continue non verbal, Obtunded, uncontrolled blood pressure added Lisinopril 04/16: Patient seen with nurse, at this time Lethargic awake when touched on the left side of her body, opens her eyes, did not follow commands for us. 04/17: Seen in her bedroom discussed with nurse Mr. Wagner no changes to the patient, no nausea, vomit or diarrhea, Poor prognosis. Objective Vital Signs Date Time Temp Pulse Resp B/P Pulse Ox O2 Delivery O2 Flow Rate FiO2 04/17/17 14:00 63 04/17/17 12:33 99 21 04/17/17 12:00 65 04/17/17 12:00 100.3 65 20 150/97 96 04/17/17 10:00 74 04/17/17 08:00 98.5 64 19 148/81 99 04/17/17 08:00 64 04/17/17 05:59 62 04/17/17 04:00 62 04/17/17 04:00 98.5 62 20 174/95 97 04/17/17 02:00 72 04/17/17 00:00 98.2 62 20 178/88 97 04/17/17 00:00 62 04/16/17 22:00 68 04/16/17 20:50 97 04/16/17 20:00 72 04/16/17 20:00 99.0 72 22 177/89 97 04/16/17 18:03 80 04/16/17 16:00 88 04/16/17 16:00 97.9 62 20 158/83 96 I/O 04/16/17 04/16/17 04/16/17 04/17/17 04/17/17 04/17/17 07:00 15:00 23:00 07:00 15:00 23:00 Intake Total 822 ml 674 ml 458 ml 550 ml Output Total 450 ml 550 ml 100 ml 750 ml Balance 372 ml 124 ml 358 ml -200 ml Intake Oral 0 ml IV Total 150 ml 179 ml 133 ml 0 ml Tube Feeding 432 ml 475 ml 225 ml 450 ml Other 240 ml 20 ml 100 ml 100 ml Output Urine Total 450 ml 550 ml 100 ml 750 ml # Bowel Movements 0 0 0 Result Diagram: 04/15/17 0422 Imaging Last Impressions Head CT 04/17/17 08 Signed Impressions: Service Date/Time: Monday, April 17, 2017 08:19 - CONCLUSION: 1. Slight interval decrease in the size of the large acute intraparenchymal hemorrhage within the left basal ganglia which now measures 4.7 x 2.5 cm. There has also been decrease in the volume of the acute intraventricular hemorrhage and decrease in the subfalcine herniation to the right which now measures 4 mm. 2. Moderate periventricular and subcortical white matter small vessel ischemic changes bilaterally. 3. Mild ventriculomegaly suggesting central cerebral atrophy versus mild hydrocephalus. Clinical correlation is recommended. Denny Hart MD Abdomen X-Ray 04/12/17 1538 Signed Impressions: Service Date/Time: Wednesday, April 12, 2017 17:29 - CONCLUSION: Nonobstructive bowel gas pattern. Suresh Zapata MD Chest X-Ray 04/10/171999 Signed Impressions: Service Date/Time: Monday, April 10, 2017 21:03 - CONCLUSION: No evidence of acute cardiopulmonary disease. Hu Henderson MD Neck CTA 04/10/17 0000 Signed Impressions: Service Date/Time: Monday, April 10, 2017 22:28 - CONCLUSION: The internal carotid arteries are normal bilaterally. No significant atherosclerotic disease is noted. Eliud Du MD Head CTA 04/10/17 0000 Signed Impressions: Service Date/Time: Monday, April 10, 2017 22:50 - CONCLUSION: Mild dilatation of the basilar tip without discrete aneurysm. Some narrowing of the left middle cerebral branch after the bifurcation. Prominent left thalamic hemorrhage. Eliud Du MD Procedures No procedures performed Other Results Laboratory Tests Test 04/14/17 04/14/17 04/15/17 03:38 20:01 04:22 Total Bilirubin 0.6 MG/DL Aspartate Amino Transf 32 U/L (AST/SGOT) Alanine Aminotransferase 31 U/L (ALT/SGPT) Alkaline Phosphatase 67 U/L Total Protein 6.7 GM/DL Albumin 3.2 GM/DL Hemoglobin A1c 5.6 % Triglycerides Level 54 MG/DL Cholesterol Level 164 MG/DL LDL Cholesterol 81 MG/DL HDL Cholesterol 72.5 MG/DL Cholesterol/HDL Ratio 2.26 RATIO Vitamin B12 Level 228 PG/ML Folate 8.6 NG/ML Free Thyroxine 1.11 NG/DL Thyroid Stimulating Hormone 2.360 uIU/ML 3rd Gen Sodium Level 140 MEQ/L Potassium Level 4.2 MEQ/L Chloride Level 108 MEQ/L Carbon Dioxide Level 25.8 MEQ/L Anion Gap 6 MEQ/L Blood Urea Nitrogen 21 MG/DL Creatinine 0.62 MG/DL Estimat Glomerular Filtration 100 ML/MIN Rate Random Glucose 126 MG/DL Calcium Level 8.4 MG/DL Phosphorus Level 2.9 MG/DL Magnesium Level 2.3 MG/DL Objective Remarks GENERAL: Well-nourished, well-developed patient. Nonverbal SKIN: Warm and dry. HEAD: Normocephalic. NG tube in place. EYES: No scleral icterus. No injection or drainage. NECK: trachea midline. No JVD. CARDIOVASCULAR: Regular rate and rhythm without murmurs, gallops, or rubs. Remains hypotensive RESPIRATORY: Breath sounds equal bilaterally. No accessory muscle use. GASTROINTESTINAL: Abdomen soft, non-tender, nondistended. MUSCULOSKELETAL: No cyanosis, or edema. EXTREMITIES: No clubbing cyanosis or edema, NEURO: Lethargic. Medications and IVs Current Medications Medications (Trade) Dose Ordered Sig/Reymundo Route Start Time Stop Time Status Last Admin (NS Flush) 2 ml UNSCH PRN .XX 04/10/17 22:00 (NS Flush) 2 ml BID .XX 04/11/17 09:00 04/17/17 09:00 (Tylenol) 650 mg Q6H PRN PO 04/10/17 22:00 04/17/17 13:19 (Morphine Inj) 2 mg Q2H PRN IV 04/10/17 22:00 (Pepcid Inj) 20 mg Q12HR IV PUSH 04/11/17 09:00 04/17/17 09:23 (Zofran Inj) 4 mg Q6H PRN IV 04/10/17 22:00 (Reglan Inj) 10 mg Q6H PRN IV 04/10/17 22:00 (Compazine Supp) 25 mg Q12H PRN RECTAL 04/10/17 22:00 Miscellaneous Information 1 Q361D XX 04/10/17 22:00 04/10/17 22:00 (Chlorhexidine 2% Cloth) Taper DAILY@04 TOP 04/11/17 04:00 04/07/18 03:59 04/16/17 03:02 (Chlorhexidine 2% Cloth) 3 pack UNSCH PRN TOP 04/10/17 22:00 (Evelyn-Colace) 1 tab BID PO 04/11/17 09:00 04/17/17 09:22 (Milk Of Magnesia Liq) 30 ml Q12H PRN PO 04/10/17 22:00 (Senokot) 17.2 mg Q12H PRN PO 04/10/17 22:00 (Dulcolax Supp) 10 mg DAILY PRN RECTAL 04/10/17 22:00 (Lactulose Liq) 30 ml DAILY PRN PO 04/10/17 22:00 (Trandate Inj) 20 mg Q4H PRN IV PUSH 04/12/17 08:15 04/17/17 02:24 (Apresoline Inj) 20 mg Q4H PRN IV PUSH 04/12/17 08:15 04/16/17 17:38 Metoclopramide HCl 5 mg 5 mg Q8HR IV PUSH 04/12/17 16:00 04/17/17 13:20 Potassium Chloride 100 ml @ 50 mls/hr Q2H PRN IV 04/13/17 11:45 (KCl 20 Meq Premix Inj) 100 ml @ 50 mls/hr Q2H PRN IV 04/13/17 11:45 04/14/17 13:06 Potassium Bicarb/ Potassium Chloride 50 meq 50 meq UNSCH PRN PO 04/13/17 11:45 Potassium Chloride 100 ml @ 25 mls/hr UNSCH PRN IV 04/13/17 11:45 Potassium Chloride 100 ml @ 50 mls/hr Q2H PRN IV 04/13/17 11:45 (Magnesium Sulfate Inj/NS Inj) 100 ml @ 50 mls/hr UNSCH PRN IV 04/13/17 11:45 Magnesium Oxide 800 mg 800 mg UNSCH PRN PO 04/13/17 11:45 (Magnesium Sulfate Inj/NS Inj) 100 ml @ 50 mls/hr UNSCH PRN IV 04/13/17 11:45 Potassium Phosphate 2000 mg 2,000 mg Q4H PRN PO 04/13/17 11:45 (Sodium Phosphate Inj/NS 250 ml Inj) 250 ml @ 42 mls/hr UNSCH PRN IV 04/13/17 11:45 Potassium Phosphate 2000 mg 2,000 mg UNSCH PRN PO/TUBE 04/13/17 11:45 (Potassium Phosphate Inj/NS 250 ml Inj) 260 ml @ 42 mls/hr UNSCH PRN IV 04/13/17 11:45 (Lopressor) 50 mg Q8HR PO 04/14/17 14:00 04/17/17 13:19 (Catapres) 0.3 mg Q8HR PO 04/14/17 22:00 04/17/17 13:19 (Norvasc) 10 mg DAILY PO 04/14/17 19:45 04/17/17 09:23 (Vasotec Inj) 1.25 mg Q6H PRN IV PUSH 04/15/17 01:15 04/17/17 01:47 (Nitroglycerin 2% Oint) 2 inch Q6HR PRN TOPICAL 04/15/17 06:00 04/16/17 12:34 (Apresoline) 100 mg Q8HR PO 04/15/17 14:00 04/17/17 13:19 (Prinivil) 40 mg BID PO 04/16/17 21:00 04/17/17 09:23 A/P Assessment and Plan Intracranial bleed - Thalamic ICH with IVH extension, ICH score 3, No surgical intervention as per Dr. Wang, recommended to keep systolic blood pressure between 120 to 150 mm Hg. neuro checks and follow Neurology specialist recommendations, Lisinopril 40 mg BID. asked for New CT brain, slight interval decrease in the size of the large acute intraparenchymal hemorrhage. Hypertensive Emergency. - Nicardipine drip wean to DC,Use PRN Labetalol and hydralazine. - Started Norvasc 5 mg daily 04/12. Add metoprolol 25 mg by mouth every 8 hours, hydralazine 50 mg by mouth every 8 hours starting today 04/13/17 - SBP goal less than 150-160, added Lisinopril to try to keep her blood pressure under control Better control today. added HCTZ 25 mg daily Electrolyte derangement - replaced and following. DVT GI prophylaxis - Teds SCDs - No pharmacological DVT prophylaxis due to acute ICH - Pepcid PT/OT/Speech Discharge Planning Follow Specialist recommendations Percy Frank MD Apr 17, 2017 14:42
[2017-04-17 15:22] LABS: HEPATITIS A AB IGM NEGATIVE (NEGATIVE); HEPATITIS B CORE AB IGM NEGATIVE (NEGATIVE)
[2017-04-17] MEDS: HYDROCHLOROTHIAZIDE 25 MG TAB PO SCH (19:24)
--- NOTE | 2017-04-17 20:24 | HHI.PR ---
Review/Management Diagnosis left thalamic hemorrhage with intraventricular extension Plan continue BP control Diagnosis/Plan: Subjective Subjective Comments No acute events reported Active Medications Current Medications Medications (Trade) Dose Ordered Sig/Reymundo Route Start Time Stop Time Status Last Admin (NS Flush) 2 ml UNSCH PRN .XX 04/10/17 22:00 (NS Flush) 2 ml BID .XX 04/11/17 09:00 04/17/17 09:00 (Tylenol) 650 mg Q6H PRN PO 04/10/17 22:00 04/17/17 13:19 (Morphine Inj) 2 mg Q2H PRN IV 04/10/17 22:00 (Pepcid Inj) 20 mg Q12HR IV PUSH 04/11/17 09:00 04/17/17 09:23 (Zofran Inj) 4 mg Q6H PRN IV 04/10/17 22:00 (Reglan Inj) 10 mg Q6H PRN IV 04/10/17 22:00 (Compazine Supp) 25 mg Q12H PRN RECTAL 04/10/17 22:00 Miscellaneous Information 1 Q361D XX 04/10/17 22:00 04/10/17 22:00 (Chlorhexidine 2% Cloth) Taper DAILY@04 TOP 04/11/17 04:00 04/07/18 03:59 04/16/17 03:02 (Chlorhexidine 2% Cloth) 3 pack UNSCH PRN TOP 04/10/17 22:00 (Evelyn-Colace) 1 tab BID PO 04/11/17 09:00 04/17/17 09:22 (Milk Of Magnesia Liq) 30 ml Q12H PRN PO 04/10/17 22:00 (Senokot) 17.2 mg Q12H PRN PO 04/10/17 22:00 (Dulcolax Supp) 10 mg DAILY PRN RECTAL 04/10/17 22:00 (Lactulose Liq) 30 ml DAILY PRN PO 04/10/17 22:00 (Trandate Inj) 20 mg Q4H PRN IV PUSH 04/12/17 08:15 04/17/17 02:24 (Apresoline Inj) 20 mg Q4H PRN IV PUSH 04/12/17 08:15 04/16/17 17:38 Metoclopramide HCl 5 mg 5 mg Q8HR IV PUSH 04/12/17 16:00 04/17/17 13:20 Potassium Chloride 100 ml @ 50 mls/hr Q2H PRN IV 04/13/17 11:45 (KCl 20 Meq Premix Inj) 100 ml @ 50 mls/hr Q2H PRN IV 04/13/17 11:45 04/14/17 13:06 Potassium Bicarb/ Potassium Chloride 50 meq 50 meq UNSCH PRN PO 04/13/17 11:45 Potassium Chloride 100 ml @ 25 mls/hr UNSCH PRN IV 04/13/17 11:45 Potassium Chloride 100 ml @ 50 mls/hr Q2H PRN IV 04/13/17 11:45 (Magnesium Sulfate Inj/NS Inj) 100 ml @ 50 mls/hr UNSCH PRN IV 04/13/17 11:45 Magnesium Oxide 800 mg 800 mg UNSCH PRN PO 04/13/17 11:45 (Magnesium Sulfate Inj/NS Inj) 100 ml @ 50 mls/hr UNSCH PRN IV 04/13/17 11:45 Potassium Phosphate 2000 mg 2,000 mg Q4H PRN PO 04/13/17 11:45 (Sodium Phosphate Inj/NS 250 ml Inj) 250 ml @ 42 mls/hr UNSCH PRN IV 04/13/17 11:45 Potassium Phosphate 2000 mg 2,000 mg UNSCH PRN PO/TUBE 04/13/17 11:45 (Potassium Phosphate Inj/NS 250 ml Inj) 260 ml @ 42 mls/hr UNSCH PRN IV 04/13/17 11:45 (Lopressor) 50 mg Q8HR PO 04/14/17 14:00 04/17/17 13:19 (Catapres) 0.3 mg Q8HR PO 04/14/17 22:00 04/17/17 13:19 (Norvasc) 10 mg DAILY PO 04/14/17 19:45 04/17/17 09:23 (Vasotec Inj) 1.25 mg Q6H PRN IV PUSH 04/15/17 01:15 04/17/17 01:47 (Nitroglycerin 2% Oint) 2 inch Q6HR PRN TOPICAL 04/15/17 06:00 04/16/17 12:34 (Apresoline) 100 mg Q8HR PO 04/15/17 14:00 04/17/17 13:19 (Prinivil) 40 mg BID PO 04/16/17 21:00 04/17/17 09:23 (Hydrodiuril) 25 mg DAILY PO 04/17/17 17:45 04/17/17 19:24 Allergies Allergies Coded Allergies UNOBTAINABLE (Unverified04/10/17) Exam I&O / VS 04/16/17 04/16/17 04/17/17 15:00 23:00 07:00 Intake Total 674 ml 458 ml Output Total 550 ml 100 ml Balance 124 ml 358 ml Intake Oral 0 ml IV Total 179 ml 133 ml Tube Feeding 475 ml 225 ml Other 20 ml 100 ml Output Urine Total 550 ml 100 ml # Bowel Movements 0 Vital Signs Date Time Temp Pulse Resp B/P Pulse Ox O2 Delivery O2 Flow Rate FiO2 04/17/17 18:00 59 04/17/17 16:00 99.8 57 17 136/80 98 04/17/17 16:00 57 04/17/17 14:00 63 04/17/17 12:33 99 21 04/17/17 12:00 65 04/17/17 12:00 100.3 65 20 150/97 96 04/17/17 10:00 74 04/17/17 08:00 98.5 64 19 148/81 99 04/17/17 08:00 64 04/17/17 05:59 62 04/17/17 04:00 62 04/17/17 04:00 98.5 62 20 174/95 97 04/17/17 02:00 72 04/17/17 00:00 98.2 62 20 178/88 97 04/17/17 00:00 62 04/16/17 22:00 68 04/16/17 20:50 97 Exam Comments lethargic, follow simple commands Pupils 2 mm symmetric and reactive with left gaze preference [employer] Supervisor voluntarily left but not right Objective Radiology Results CT--stable thalamic hemorrhage with some decrease in size of hemorrhage Jonathan Ravi PhD Apr 17, 2017 20:24
[2017-04-18] VITALS (14 sets, daily range): BP systolic 151–173; BP diastolic 78–90; PULSE 54–66; RESP 16–20; TEMP 98.4–100.4; O2SAT 97–98
[2017-04-18 04:00] LABS: BICARBONATE 30.3 MEQ/L (21.0-32.0); CALCIUM 8.6 MG/DL (8.5-10.1); CREATININE 0.73 MG/DL (0.50-1.00); MAGNESIUM 2.3 MG/DL (1.5-2.5)
[2017-04-18] MEDS: CHLORHEXIDINE GLUCONATE 2 % 1 PACK (2 CLOTHS) TOP SCH (04:00)
[2017-04-18] MEDS: cloNIDine HCL 0.3 MG TAB PO SCH ×3 (05:17→21:05)
[2017-04-18] MEDS: hydrALAZINE HCL 100 MG TAB PO SCH ×3 (05:17→21:06)
[2017-04-18] MEDS: METOPROLOL TARTRATE 50 MG TAB PO SCH ×3 (05:17→21:05)
[2017-04-18] MEDS: METOCLOPRAMIDE HCL 10 MG/2 ML VIAL IV PUSH SCH ×3 (05:18→21:05)
[2017-04-18] MEDS: FAMOTIDINE 20 MG/2 ML VIAL IV PUSH SCH ×2 (08:58→21:05)
[2017-04-18] MEDS: HYDROCHLOROTHIAZIDE 25 MG TAB PO SCH (08:59)
[2017-04-18] MEDS: LISINOPRIL 20 MG TAB PO SCH ×2 (08:59→21:05)
[2017-04-18] MEDS: DOCUSATE SODIUM 50 MG/SENNA 8.6 MG TAB PO SCH ×2 (08:59→21:05)
[2017-04-18] MEDS: SODIUM CHLORIDE 0.9% FLUSH 10 ML FLUSH SCH ×2 (09:00→21:04)
--- NOTE | 2017-04-18 13:49 | HHI.PR ---
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 Unknown time of onset. Patient was found by children playing in the park. Upon EMS arrival they noted right-sided weakness with a leftward gaze. Patient is nonverbal, she is following commands and is moving her left upper and left lower extremity. EKG was performed in the field and shows ST elevations in V1 through V3 with ST depressions and T-wave inversions in V5 and V6, therefore STEMI alert was also called by EMS. Patient was also notably hypertensive with blood pressures of 250s over 150s. Upon arrival to the emergency department the patient is awake, nonverbal, follows commands, protecting her airway, is able to move her left arm and left leg, however is unable to move her right arm and right leg. Patient was started on a Cardene drip for suspected intracranial hemorrhage and promptly taken to CT scan. At 8:05 PM case was discussed by with on-call community health coordinator Dr. Quarles who agrees that this is most likely an intracranial hemorrhage based on clinical presentation, therefore STEMI alert was not initiated. CT of the head confirmed thalamic bleed with IVH extension. Subjective: 04/12: stable neuro exam. remains on cardene 5 mg per hour. PRN Hydralazine and labetalol added. Ct imaging yesterday stable. 04/13: Patient still on CCM service as Cardene was re started. Start PO metoprolol and hydralazine. Neuro exam unchanged Hospitalist Notes: 04/14: Patient seen in the presence of nurse Miss Hutchins, she states there is no relatives to notify and not able to get information about the patient, continue with Right hemiplegia and some activity on the left side, continue Obtunded, supportive care started by [employer] will continue present care will add Neurology specialist for recommendations. 04/15: Seen in her bedroom, no nausea, vomit or diarrhea, continue non verbal, Obtunded, uncontrolled blood pressure added Lisinopril 04/16: Patient seen with nurse, at this time Lethargic awake when touched on the left side of her body, opens her eyes, did not follow commands for us. 04/17: No changes, Poor prognosis. 04/18: Seen in her bedroom and discussed with nurse Miss Morton, she opened her eyes early today and also was able to follow some commands with Physical Therapy. Objective Vital Signs Date Time Temp Pulse Resp B/P Pulse Ox O2 Delivery O2 Flow Rate FiO2 04/18/17 12:00 98.9 58 19 157/86 98 04/18/17 12:00 58 04/18/17 10:00 61 04/18/17 09:00 66 04/18/17 08:00 98.4 58 16 164/78 98 04/18/17 08:00 58 04/18/17 07:00 59 04/18/17 06:00 61 04/18/17 04:00 64 04/18/17 04:00 99.9 64 20 155/90 97 04/18/17 02:00 62 04/18/17 00:00 99.2 58 18 151/80 97 04/18/17 00:00 58 04/17/17 22:00 61 04/17/17 20:00 99.0 64 20 151/90 97 04/17/17 20:00 64 04/17/17 18:00 59 04/17/17 16:00 99.8 57 17 136/80 98 04/17/17 16:00 57 04/17/17 14:00 63 I/O 04/17/17 04/17/17 04/17/17 04/18/17 04/18/17 04/18/17 07:00 15:00 23:00 07:00 15:00 23:00 Intake Total 550 ml 565 ml 568 ml Output Total 750 ml 900 ml 750 ml Balance -200 ml -335 ml -182 ml IV Total 0 ml 0 ml 0 ml Tube Feeding 450 ml 465 ml 468 ml Other 100 ml 100 ml 100 ml Output Urine Total 750 ml 900 ml 750 ml # Bowel Movements 0 0 0 Result Diagram: 04/18/17 0330 Imaging Last Impressions Head CT 04/17/17 0800 Signed Impressions: Service Date/Time: Monday, April 17, 2017 08:19 - CONCLUSION: 1. Slight interval decrease in the size of the large acute intraparenchymal hemorrhage within the left basal ganglia which now measures 4.7 x 2.5 cm. There has also been decrease in the volume of the acute intraventricular hemorrhage and decrease in the subfalcine herniation to the right which now measures 4 mm. 2. Moderate periventricular and subcortical white matter small vessel ischemic changes bilaterally. 3. Mild ventriculomegaly suggesting central cerebral atrophy versus mild hydrocephalus. Clinical correlation is recommended. Denny Hart MD Abdomen X-Ray 04/12/17 1538 Signed Impressions: Service Date/Time: Wednesday, April 12, 2017 17:29 - CONCLUSION: Nonobstructive bowel gas pattern. Suresh Zapata MD Chest X-Ray 04/10/171999 Signed Impressions: Service Date/Time: Monday, April 10, 2017 21:03 - CONCLUSION: No evidence of acute cardiopulmonary disease. Hu Henderson MD Neck CTA 04/10/17 0000 Signed Impressions: Service Date/Time: Monday, April 10, 2017 22:28 - CONCLUSION: The internal carotid arteries are normal bilaterally. No significant atherosclerotic disease is noted. Eliud Du MD Head CTA 04/10/17 0000 Signed Impressions: Service Date/Time: Monday, April 10, 2017 22:50 - CONCLUSION: Mild dilatation of the basilar tip without discrete aneurysm. Some narrowing of the left middle cerebral branch after the bifurcation. Prominent left thalamic hemorrhage. Eliud Du MD Procedures No procedures performed Other Results Laboratory Tests Test 04/14/17 04/14/17 04/15/17 04/18/17 03:38 20:01 04:22 03:30 Total Bilirubin 0.6 MG/DL Aspartate Amino Transf 32 U/L (AST/SGOT) Alanine Aminotransferase 31 U/L (ALT/SGPT) Alkaline Phosphatase 67 U/L Total Protein 6.7 GM/DL Albumin 3.2 GM/DL Hemoglobin A1c 5.6 % Triglycerides Level 54 MG/DL Cholesterol Level 164 MG/DL LDL Cholesterol 81 MG/DL HDL Cholesterol 72.5 MG/DL Cholesterol/HDL Ratio 2.26 RATIO Vitamin B12 Level 228 PG/ML Folate 8.6 NG/ML Free Thyroxine 1.11 NG/DL Thyroid Stimulating Hormone 2.360 uIU/ML 3rd Gen Hepatitis A IgM Antibody NEGATIVE Hepatitis B Surface Antigen NEGATIVE Hepatitis B Core IgM Antibody NEGATIVE Hepatitis C Antibody NEGATIVE Phosphorus Level 2.9 MG/DL Sodium Level 143 MEQ/L Potassium Level 3.9 MEQ/L Chloride Level 106 MEQ/L Carbon Dioxide Level 30.3 MEQ/L Anion Gap 7 MEQ/L Blood Urea Nitrogen 22 MG/DL Creatinine 0.73 MG/DL Estimat Glomerular Filtration 83 ML/MIN Rate Random Glucose 151 MG/DL Calcium Level 8.6 MG/DL Magnesium Level 2.3 MG/DL Objective Remarks GENERAL: Well-developed patient. Nonverbal SKIN: Warm and dry. HEAD: Normocephalic. NG tube in place. EYES: No scleral icterus. No injection or drainage. NECK: trachea midline. No JVD. CARDIOVASCULAR: Regular rate and rhythm without murmurs, gallops, or rubs. Remains hypotensive RESPIRATORY: Breath sounds equal bilaterally. No accessory muscle use. GASTROINTESTINAL: Abdomen soft, non-tender, nondistended. MUSCULOSKELETAL: No cyanosis, or edema. EXTREMITIES: No clubbing cyanosis or edema, NEURO: Lethargic. Medications and IVs Current Medications Medications (Trade) Dose Ordered Sig/Reymundo Route Start Time Stop Time Status Last Admin (NS Flush) 2 ml UNSCH PRN .XX 04/10/17 22:00 (NS Flush) 2 ml BID .XX 04/11/17 09:00 04/18/17 09:00 (Tylenol) 650 mg Q6H PRN PO 04/10/17 22:00 04/17/17 13:19 (Morphine Inj) 2 mg Q2H PRN IV 04/10/17 22:00 (Pepcid Inj) 20 mg Q12HR IV PUSH 04/11/17 09:00 04/18/17 08:58 (Zofran Inj) 4 mg Q6H PRN IV 04/10/17 22:00 (Reglan Inj) 10 mg Q6H PRN IV 04/10/17 22:00 (Compazine Supp) 25 mg Q12H PRN RECTAL 04/10/17 22:00 Miscellaneous Information 1 Q361D XX 04/10/17 22:00 04/10/17 22:00 (Chlorhexidine 2% Cloth) Taper DAILY@04 TOP 04/11/17 04:00 04/07/18 03:59 04/16/17 03:02 (Chlorhexidine 2% Cloth) 3 pack UNSCH PRN TOP 04/10/17 22:00 (Evelyn-Colace) 1 tab BID PO 04/11/17 09:00 04/18/17 08:59 (Milk Of Magnesia Liq) 30 ml Q12H PRN PO 04/10/17 22:00 (Senokot) 17.2 mg Q12H PRN PO 04/10/17 22:00 (Dulcolax Supp) 10 mg DAILY PRN RECTAL 04/10/17 22:00 (Lactulose Liq) 30 ml DAILY PRN PO 04/10/17 22:00 (Trandate Inj) 20 mg Q4H PRN IV PUSH 04/12/17 08:15 04/17/17 02:24 (Apresoline Inj) 20 mg Q4H PRN IV PUSH 04/12/17 08:15 04/16/17 17:38 Metoclopramide HCl 5 mg 5 mg Q8HR IV PUSH 04/12/17 16:00 04/18/17 13:19 Potassium Chloride 100 ml @ 50 mls/hr Q2H PRN IV 04/13/17 11:45 (KCl 20 Meq Premix Inj) 100 ml @ 50 mls/hr Q2H PRN IV 04/13/17 11:45 04/14/17 13:06 Potassium Bicarb/ Potassium Chloride 50 meq 50 meq UNSCH PRN PO 04/13/17 11:45 Potassium Chloride 100 ml @ 25 mls/hr UNSCH PRN IV 04/13/17 11:45 Potassium Chloride 100 ml @ 50 mls/hr Q2H PRN IV 04/13/17 11:45 (Magnesium Sulfate Inj/NS Inj) 100 ml @ 50 mls/hr UNSCH PRN IV 04/13/17 11:45 Magnesium Oxide 800 mg 800 mg UNSCH PRN PO 04/13/17 11:45 (Magnesium Sulfate Inj/NS Inj) 100 ml @ 50 mls/hr UNSCH PRN IV 04/13/17 11:45 Potassium Phosphate 2000 mg 2,000 mg Q4H PRN PO 04/13/17 11:45 (Sodium Phosphate Inj/NS 250 ml Inj) 250 ml @ 42 mls/hr UNSCH PRN IV 04/13/17 11:45 Potassium Phosphate 2000 mg 2,000 mg UNSCH PRN PO/TUBE 04/13/17 11:45 (Potassium Phosphate Inj/NS 250 ml Inj) 260 ml @ 42 mls/hr UNSCH PRN IV 04/13/17 11:45 (Lopressor) 50 mg Q8HR PO 04/14/17 14:00 04/18/17 13:19 (Catapres) 0.3 mg Q8HR PO 04/14/17 22:00 04/18/17 13:19 (Norvasc) 10 mg DAILY PO 04/14/17 19:45 04/18/17 08:59 (Vasotec Inj) 1.25 mg Q6H PRN IV PUSH 04/15/17 01:15 04/17/17 01:47 (Nitroglycerin 2% Oint) 2 inch Q6HR PRN TOPICAL 04/15/17 06:00 04/16/17 12:34 (Apresoline) 100 mg Q8HR PO 04/15/17 14:00 04/18/17 13:19 (Prinivil) 40 mg BID PO 04/16/17 21:00 04/18/17 08:59 (Hydrodiuril) 25 mg DAILY PO 04/17/17 17:45 04/18/17 08:59 A/P Assessment and Plan Intracranial bleed - Thalamic ICH with IVH extension, ICH score 3, No surgical intervention as per Dr. Wang, recommended to keep systolic blood pressure between 120 to 150 mm Hg. neuro checks and follow Neurology specialist recommendations, Lisinopril 40 mg BID. asked for New CT brain, slight interval decrease in the size of the large acute intraparenchymal hemorrhage. Hypertensive Emergency. - Nicardipine drip wean to DC,Use PRN Labetalol and hydralazine. - Started Norvasc 5 mg daily 04/12. Add metoprolol 25 mg by mouth every 8 hours, hydralazine 50 mg by mouth every 8 hours starting today 04/13/17 - SBP goal less than 150-160, added Lisinopril to try to keep her blood pressure under control Better control today. increased HCTZ to 50 mg daily. Electrolyte derangement - replaced and following. DVT GI prophylaxis - Teds SCDs - No pharmacological DVT prophylaxis due to acute ICH - Pepcid PT/OT/Speech Discharge Planning Follow Specialist recommendations Percy Frank MD Apr 18, 2017 13:49
[2017-04-18] MEDS ORDERED: HYDROCHLOROTHIAZIDE 25 MG TAB PO ONE (16:30)
[2017-04-18] MEDS: ENALAPRILAT 1.25 MG/ML VIAL IV PUSH PRN (18:47)
--- NOTE | 2017-04-18 20:29 | HHI.PR ---
Review/Management Diagnosis left thalamic hemorrhage with intraventricular extension Plan continue BP control Diagnosis/Plan: Subjective Subjective Comments No acute events reported Active Medications Current Medications Medications (Trade) Dose Ordered Sig/Reymundo Route Start Time Stop Time Status Last Admin (NS Flush) 2 ml UNSCH PRN .XX 04/10/17 22:00 (NS Flush) 2 ml BID .XX 04/11/17 09:00 04/18/17 09:00 (Tylenol) 650 mg Q6H PRN PO 04/10/17 22:00 04/17/17 13:19 (Morphine Inj) 2 mg Q2H PRN IV 04/10/17 22:00 (Pepcid Inj) 20 mg Q12HR IV PUSH 04/11/17 09:00 04/18/17 08:58 (Zofran Inj) 4 mg Q6H PRN IV 04/10/17 22:00 (Reglan Inj) 10 mg Q6H PRN IV 04/10/17 22:00 (Compazine Supp) 25 mg Q12H PRN RECTAL 04/10/17 22:00 Miscellaneous Information 1 Q361D XX 04/10/17 22:00 04/10/17 22:00 (Chlorhexidine 2% Cloth) Taper DAILY@04 TOP 04/11/17 04:00 04/07/18 03:59 04/16/17 03:02 (Chlorhexidine 2% Cloth) 3 pack UNSCH PRN TOP 04/10/17 22:00 (Evelyn-Colace) 1 tab BID PO 04/11/17 09:00 04/18/17 08:59 (Milk Of Magnesia Liq) 30 ml Q12H PRN PO 04/10/17 22:00 (Senokot) 17.2 mg Q12H PRN PO 04/10/17 22:00 (Dulcolax Supp) 10 mg DAILY PRN RECTAL 04/10/17 22:00 (Lactulose Liq) 30 ml DAILY PRN PO 04/10/17 22:00 (Trandate Inj) 20 mg Q4H PRN IV PUSH 04/12/17 08:15 04/17/17 02:24 (Apresoline Inj) 20 mg Q4H PRN IV PUSH 04/12/17 08:15 04/16/17 17:38 Metoclopramide HCl 5 mg 5 mg Q8HR IV PUSH 04/12/17 16:00 04/18/17 13:19 Potassium Chloride 100 ml @ 50 mls/hr Q2H PRN IV 04/13/17 11:45 (KCl 20 Meq Premix Inj) 100 ml @ 50 mls/hr Q2H PRN IV 04/13/17 11:45 04/14/17 13:06 Potassium Bicarb/ Potassium Chloride 50 meq 50 meq UNSCH PRN PO 04/13/17 11:45 Potassium Chloride 100 ml @ 25 mls/hr UNSCH PRN IV 04/13/17 11:45 Potassium Chloride 100 ml @ 50 mls/hr Q2H PRN IV 04/13/17 11:45 (Magnesium Sulfate Inj/NS Inj) 100 ml @ 50 mls/hr UNSCH PRN IV 04/13/17 11:45 Magnesium Oxide 800 mg 800 mg UNSCH PRN PO 04/13/17 11:45 (Magnesium Sulfate Inj/NS Inj) 100 ml @ 50 mls/hr UNSCH PRN IV 04/13/17 11:45 Potassium Phosphate 2000 mg 2,000 mg Q4H PRN PO 04/13/17 11:45 (Sodium Phosphate Inj/NS 250 ml Inj) 250 ml @ 42 mls/hr UNSCH PRN IV 04/13/17 11:45 Potassium Phosphate 2000 mg 2,000 mg UNSCH PRN PO/TUBE 04/13/17 11:45 (Potassium Phosphate Inj/NS 250 ml Inj) 260 ml @ 42 mls/hr UNSCH PRN IV 04/13/17 11:45 (Lopressor) 50 mg Q8HR PO 04/14/17 14:00 04/18/17 13:19 (Catapres) 0.3 mg Q8HR PO 04/14/17 22:00 04/18/17 13:19 (Norvasc) 10 mg DAILY PO 04/14/17 19:45 04/18/17 08:59 (Vasotec Inj) 1.25 mg Q6H PRN IV PUSH 04/15/17 01:15 04/18/17 18:47 (Nitroglycerin 2% Oint) 2 inch Q6HR PRN TOPICAL 04/15/17 06:00 04/16/17 12:34 (Apresoline) 100 mg Q8HR PO 04/15/17 14:00 04/18/17 13:19 (Prinivil) 40 mg BID PO 04/16/17 21:00 04/18/17 08:59 (Hydrodiuril) 50 mg DAILY PO 04/19/17 09:00 Allergies Allergies Coded Allergies UNOBTAINABLE (Unverified04/10/17) Exam I&O / VS 04/17/17 04/17/17 04/18/17 15:00 23:00 07:00 Intake Total 550 ml 565 ml 568 ml Output Total 750 ml 900 ml 750 ml Balance -200 ml -335 ml -182 ml IV Total 0 ml 0 ml 0 ml Tube Feeding 450 ml 465 ml 468 ml Other 100 ml 100 ml 100 ml Output Urine Total 750 ml 900 ml 750 ml # Bowel Movements 0 0 0 Vital Signs Date Time Temp Pulse Resp B/P Pulse Ox O2 Delivery O2 Flow Rate FiO2 04/18/17 18:00 62 04/18/17 16:00 99.8 61 19 157/84 98 04/18/17 16:00 61 04/18/17 14:00 59 04/18/17 12:00 98.9 58 19 157/86 98 04/18/17 12:00 58 04/18/17 10:00 61 04/18/17 09:00 66 04/18/17 08:00 98.4 58 16 164/78 98 04/18/17 08:00 58 04/18/17 07:00 59 04/18/17 06:00 61 04/18/17 04:00 64 04/18/17 04:00 99.9 64 20 155/90 97 04/18/17 02:00 62 04/18/17 00:00 99.2 58 18 151/80 97 04/18/17 00:00 58 04/17/17 22:00 61 Exam Comments lethargic, follow simple commands Pupils 2 mm symmetric and reactive with left gaze preference 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
[2017-04-18] MEDS: MORPHINE SULFATE 4 MG/ML INJ IV PRN (21:05)
[2017-04-19] VITALS (13 sets, daily range): BP systolic 123–157; BP diastolic 68–83; PULSE 56–68; RESP 17–20; TEMP 98.4–100.8; O2SAT 97–98
[2017-04-19] MEDS: CHLORHEXIDINE GLUCONATE 2 % 1 PACK (2 CLOTHS) TOP SCH (04:00)
[2017-04-19 05:23] LABS: AUTOMATED NEUTROPHIL # 5.1 TH/MM3 (1.8-7.7); BASOPHIL % 0.2 % (0.0-2.0); EOSINOPHIL # 0.1 TH/MM3 (0-0.4); EOSINOPHIL % 1.2 % (0.0-4.0); HEMATOCRIT 39.7 % (35.0-46.0); HEMOGLOBIN 13.3 GM/DL (11.6-15.3); LYMPH % 17.5 % (9.0-44.0); LYMPHOCYTE # 1.4 TH/MM3 (1.0-4.8); MEAN CELL VOLUME 88.7 FL (80.0-100.0); MEAN CORPUSCULAR HEMOGLOBIN 29.7 PG (27.0-34.0); MEAN CORPUSCULAR HGB CONC 33.5 % (32.0-36.0); MEAN PLATELET VOLUME 10.5 FL (7.0-11.0); MONO % 17.1 % (0.0-8.0); MONOCYTE # 1.4 TH/MM3 (0-0.9); PLATELET COUNT 208 TH/MM3 (150-450); RED BLOOD COUNT 4.48 MIL/MM3 (4.00-5.30); RED CELL DISTRIBUTION WIDTH 13.2 % (11.6-17.2)
[2017-04-19 05:33] LABS: BICARBONATE 27.4 MEQ/L (21.0-32.0); CALCIUM 8.5 MG/DL (8.5-10.1); CREATININE 0.66 MG/DL (0.50-1.00)
[2017-04-19 05:42] LABS: PROTHROMBIN TIME - PATIENT 11.3 SEC (9.8-11.6)
[2017-04-19] MEDS: cloNIDine HCL 0.3 MG TAB PO SCH ×3 (05:45→20:27)
[2017-04-19] MEDS: hydrALAZINE HCL 100 MG TAB PO SCH ×3 (05:45→20:27)
[2017-04-19] MEDS: METOCLOPRAMIDE HCL 10 MG/2 ML VIAL IV PUSH SCH ×3 (05:45→20:35)
[2017-04-19] MEDS: METOPROLOL TARTRATE 50 MG TAB PO SCH ×3 (05:45→20:36)
[2017-04-19] MEDS: LISINOPRIL 20 MG TAB PO SCH ×2 (08:44→20:27)
[2017-04-19] MEDS: FAMOTIDINE 20 MG/2 ML VIAL IV PUSH SCH ×2 (08:44→20:35)
[2017-04-19] MEDS: DOCUSATE SODIUM 50 MG/SENNA 8.6 MG TAB PO SCH ×2 (08:45→20:27)
[2017-04-19] MEDS: SODIUM CHLORIDE 0.9% FLUSH 10 ML FLUSH SCH ×2 (08:45→20:36)
[2017-04-19] MEDS: HYDROCHLOROTHIAZIDE 25 MG TAB PO SCH (08:45)
--- NOTE | 2017-04-19 17:47 | HHI.PR ---
Subjective Remarks biologics specialist Notes: Middle-aged very pleasant female brought in by ambulance after being found in a park sitting next to a bench with altered mental status. Unknown time of onset. Patient was found by children playing in the park. Upon EMS arrival they noted right-sided weakness with a leftward gaze. Patient is nonverbal, she is following commands and is moving her left upper and left lower extremity. EKG was performed in the field and shows ST elevations in V1 through V3 with ST depressions and T-wave inversions in V5 and V6, therefore STEMI alert was also called by EMS. Patient was also notably hypertensive with blood pressures of 250s over 150s. Upon arrival to the emergency department the patient is awake, nonverbal, follows commands, protecting her airway, is able to move her left arm and left leg, however is unable to move her right arm and right leg. Patient was started on a Cardene drip for suspected intracranial hemorrhage and promptly taken to CT scan. At 8:05 PM case was discussed by with on-call sports journalist Dr. Quarles who agrees that this is most likely an intracranial hemorrhage based on clinical presentation, therefore STEMI alert was not initiated. CT of the head confirmed thalamic bleed with IVH extension. Subjective: 04/12: stable neuro exam. remains on cardene 5 mg per hour. PRN Hydralazine and labetalol added. Ct imaging yesterday stable. 04/13: Patient still on CCM service as Cardene was re started. Start PO metoprolol and hydralazine. Neuro exam unchanged Hospitalist Notes: 04/14: Patient seen in the presence of nurse Miss Hutchnis, she states there is no relatives to notify and not able to get information about the patient, continue with Right hemiplegia and some activity on the left side, continue Obtunded, supportive care started by Transfer Knitter will continue present care will add Neurology specialist for recommendations. 04/15: Seen in her bedroom, no nausea, vomit or diarrhea, continue non verbal, Obtunded, uncontrolled blood pressure added Lisinopril 04/16: Patient seen with nurse, at this time Lethargic awake when touched on the left side of her body, opens her eyes, did not follow commands for us. 04/17: No changes, Poor prognosis. 04/18: Seen in her bedroom and discussed with nurse Miss Morton, she opened her eyes early today and also was able to follow some commands with Physical Therapy. 04/19: Stable in her bedroom, worsening Mental Sphere, non verbal not able to follow any command, pupils Miotic probable related to medicines, Poor prognosis at this time, not yet thinking in Brain continue present care and following specialist recommendations. Objective Vital Signs Date Time Temp Pulse Resp B/P Pulse Ox O2 Delivery O2 Flow Rate FiO2 04/19/17 16:00 56 04/19/17 16:00 99.3 56 17 123/68 98 04/19/17 14:00 64 04/19/17 12:00 60 04/19/17 12:00 100.6 64 19 157/83 98 04/19/17 10:00 56 04/19/17 08:00 100.8 56 19 132/72 98 04/19/17 08:00 56 04/19/17 06:55 59 04/19/17 06:00 58 04/19/17 04:00 99.0 59 20 140/76 97 04/19/17 04:00 59 04/19/17 02:00 58 04/19/17 00:00 58 04/19/17 00:00 99.2 58 20 146/81 97 04/18/17 22:00 54 04/18/17 20:00 62 04/18/17 20:00 100.4 62 20 173/90 98 04/18/17 18:00 62 I/O 04/18/17 04/18/17 04/18/17 04/19/17 04/19/17 04/19/17 07:00 15:00 23:00 07:00 15:00 23:00 Intake Total 568 ml 611 ml 519 ml 401 ml 771 ml Output Total 750 ml 1700 ml 1300 ml 450 ml 900 ml Balance -182 ml -1089 ml -781 ml -49 ml -129 ml Intake Oral 0 ml 0 ml IV Total 0 ml 0 ml 0 ml 0 ml 0 ml Tube Feeding 468 ml 511 ml 519 ml 341 ml 571 ml Other 100 ml 100 ml 60 ml 200 ml Output Urine Total 750 ml 1700 ml 1300 ml 450 ml 900 ml # Bowel Movements 0 0 0 0 0 Result Diagram: 04/19/17 0419 04/19/17 0419 Imaging Last Impressions Head CT 04/17/17 08 Signed Impressions: Service Date/Time: Monday, April 17, 2017 08:19 - CONCLUSION: 1. Slight interval decrease in the size of the large acute intraparenchymal hemorrhage within the left basal ganglia which now measures 4.7 x 2.5 cm. There has also been decrease in the volume of the acute intraventricular hemorrhage and decrease in the subfalcine herniation to the right which now measures 4 mm. 2. Moderate periventricular and subcortical white matter small vessel ischemic changes bilaterally. 3. Mild ventriculomegaly suggesting central cerebral atrophy versus mild hydrocephalus. Clinical correlation is recommended. Denny Hart MD Abdomen X-Ray 04/12/17 1538 Signed Impressions: Service Date/Time: Wednesday, April 12, 2017 17:29 - CONCLUSION: Nonobstructive bowel gas pattern. Suresh Zapata MD Chest X-Ray 04/10/171999 Signed Impressions: Service Date/Time: Monday, April 10, 2017 21:03 - CONCLUSION: No evidence of acute cardiopulmonary disease. Hu Henderson MD Neck CTA 04/10/17 0000 Signed Impressions: Service Date/Time: Monday, April 10, 2017 22:28 - CONCLUSION: The internal carotid arteries are normal bilaterally. No significant atherosclerotic disease is noted. Eliud Du MD Head CTA 04/10/17 0000 Signed Impressions: Service Date/Time: Monday, April 10, 2017 22:50 - CONCLUSION: Mild dilatation of the basilar tip without discrete aneurysm. Some narrowing of the left middle cerebral branch after the bifurcation. Prominent left thalamic hemorrhage. Eliud Du MD Procedures No procedures performed Other Results Laboratory Tests Test 04/14/17 04/15/17 04/18/17 04/19/17 20:01 04:22 03:30 04:19 Hemoglobin A1c 5.6 % Triglycerides Level 54 MG/DL Cholesterol Level 164 MG/DL LDL Cholesterol 81 MG/DL HDL Cholesterol 72.5 MG/DL Cholesterol/HDL Ratio 2.26 RATIO Vitamin B12 Level 228 PG/ML Folate 8.6 NG/ML Free Thyroxine 1.11 NG/DL Thyroid Stimulating Hormone 2.360 uIU/ML 3rd Gen Hepatitis A IgM Antibody NEGATIVE Hepatitis B Surface Antigen NEGATIVE Hepatitis B Core IgM Antibody NEGATIVE Hepatitis C Antibody NEGATIVE Phosphorus Level 2.9 MG/DL Magnesium Level 2.3 MG/DL White Blood Count 8.0 TH/MM3 Red Blood Count 4.48 MIL/MM3 Hemoglobin 13.3 GM/DL Hematocrit 39.7 % Mean Corpuscular Volume 88.7 FL Mean Corpuscular Hemoglobin 29.7 PG Mean Corpuscular Hemoglobin 33.5 % Concent Red Cell Distribution Width 13.2 % Platelet Count 208 TH/MM3 Mean Platelet Volume 10.5 FL Neutrophils (%) (Auto) 64.0 % Lymphocytes (%) (Auto) 17.5 % Monocytes (%) (Auto) 17.1 % Eosinophils (%) (Auto) 1.2 % Basophils (%) (Auto) 0.2 % Neutrophils # (Auto) 5.1 TH/MM3 Lymphocytes # (Auto) 1.4 TH/MM3 Monocytes # (Auto) 1.4 TH/MM3 Eosinophils # (Auto) 0.1 TH/MM3 Basophils # (Auto) 0.0 TH/MM3 CBC Comment DIFF FINAL Differential Comment Prothrombin Time 11.3 SEC Prothromb Time International 1.0 RATIO Ratio Activated Partial 29.2 SEC Thromboplast Time Sodium Level 137 MEQ/L Potassium Level 3.5 MEQ/L Chloride Level 98 MEQ/L Carbon Dioxide Level 27.4 MEQ/L Anion Gap 12 MEQ/L Blood Urea Nitrogen 22 MG/DL Creatinine 0.66 MG/DL Estimat Glomerular Filtration 93 ML/MIN Rate Random Glucose 136 MG/DL Calcium Level 8.5 MG/DL Objective Remarks GENERAL: Well-developed patient. Nonverbal SKIN: Warm and dry. HEAD: Normocephalic. NG tube in place. EYES: No scleral icterus. No injection or drainage. NECK: trachea midline. No JVD. CARDIOVASCULAR: Regular rate and rhythm without murmurs, gallops, or rubs. Remains hypotensive RESPIRATORY: Breath sounds equal bilaterally. No accessory muscle use. GASTROINTESTINAL: Abdomen soft, non-tender, nondistended. MUSCULOSKELETAL: No cyanosis, or edema. EXTREMITIES: No clubbing cyanosis or edema, NEURO: Comatose Medications and IVs Current Medications Medications (Trade) Dose Ordered Sig/Reymundo Route Start Time Stop Time Status Last Admin (NS Flush) 2 ml UNSCH PRN .XX 04/10/17 22:00 (NS Flush) 2 ml BID .XX 04/11/17 09:00 04/19/17 08:45 (Tylenol) 650 mg Q6H PRN PO 04/10/17 22:00 04/17/17 13:19 (Morphine Inj) 2 mg Q2H PRN IV 04/10/17 22:00 04/18/17 21:05 (Pepcid Inj) 20 mg Q12HR IV PUSH 04/11/17 09:00 04/19/17 08:44 (Zofran Inj) 4 mg Q6H PRN IV 04/10/17 22:00 (Reglan Inj) 10 mg Q6H PRN IV 04/10/17 22:00 (Compazine Supp) 25 mg Q12H PRN RECTAL 04/10/17 22:00 Miscellaneous Information 1 Q361D XX 04/10/17 22:00 04/10/17 22:00 (Chlorhexidine 2% Cloth) Taper DAILY@04 TOP 04/11/17 04:00 04/07/18 03:59 04/16/17 03:02 (Chlorhexidine 2% Cloth) 3 pack UNSCH PRN TOP 04/10/17 22:00 (Evelyn-Colace) 1 tab BID PO 04/11/17 09:00 04/19/17 08:45 (Milk Of Magnesia Liq) 30 ml Q12H PRN PO 04/10/17 22:00 (Senokot) 17.2 mg Q12H PRN PO 04/10/17 22:00 (Dulcolax Supp) 10 mg DAILY PRN RECTAL 04/10/17 22:00 (Lactulose Liq) 30 ml DAILY PRN PO 04/10/17 22:00 (Trandate Inj) 20 mg Q4H PRN IV PUSH 04/12/17 08:15 04/17/17 02:24 (Apresoline Inj) 20 mg Q4H PRN IV PUSH 04/12/17 08:15 04/16/17 17:38 Metoclopramide HCl 5 mg 5 mg Q8HR IV PUSH 04/12/17 16:00 04/19/17 14:04 Potassium Chloride 100 ml @ 50 mls/hr Q2H PRN IV 04/13/17 11:45 (KCl 20 Meq Premix Inj) 100 ml @ 50 mls/hr Q2H PRN IV 04/13/17 11:45 04/14/17 13:06 Potassium Bicarb/ Potassium Chloride 50 meq 50 meq UNSCH PRN PO 04/13/17 11:45 04/19/17 14:03 Potassium Chloride 100 ml @ 25 mls/hr UNSCH PRN IV 04/13/17 11:45 Potassium Chloride 100 ml @ 50 mls/hr Q2H PRN IV 04/13/17 11:45 (Magnesium Sulfate Inj/NS Inj) 100 ml @ 50 mls/hr UNSCH PRN IV 04/13/17 11:45 Magnesium Oxide 800 mg 800 mg UNSCH PRN PO 04/13/17 11:45 (Magnesium Sulfate Inj/NS Inj) 100 ml @ 50 mls/hr UNSCH PRN IV 04/13/17 11:45 Potassium Phosphate 2000 mg 2,000 mg Q4H PRN PO 04/13/17 11:45 (Sodium Phosphate Inj/NS 250 ml Inj) 250 ml @ 42 mls/hr UNSCH PRN IV 04/13/17 11:45 Potassium Phosphate 2000 mg 2,000 mg UNSCH PRN PO/TUBE 04/13/17 11:45 (Potassium Phosphate Inj/NS 250 ml Inj) 260 ml @ 42 mls/hr UNSCH PRN IV 04/13/17 11:45 (Lopressor) 50 mg Q8HR PO 04/14/17 14:00 04/19/17 14:03 (Catapres) 0.3 mg Q8HR PO 04/14/17 22:00 04/19/17 14:03 (Norvasc) 10 mg DAILY PO 04/14/17 19:45 04/19/17 08:45 (Vasotec Inj) 1.25 mg Q6H PRN IV PUSH 04/15/17 01:15 04/18/17 18:47 (Nitroglycerin 2% Oint) 2 inch Q6HR PRN TOPICAL 04/15/17 06:00 04/16/17 12:34 (Apresoline) 100 mg Q8HR PO 04/15/17 14:00 04/19/17 14:03 (Prinivil) 40 mg BID PO 04/16/17 21:00 04/19/17 08:44 (Hydrodiuril) 50 mg DAILY PO 04/19/17 09:00 04/19/17 08:45 A/P Assessment and Plan Intracranial bleed - Thalamic ICH with IVH extension, ICH score 3, No surgical intervention as per Dr. Wang, recommended to keep systolic blood pressure between 120 to 150 mm Hg. neuro checks and follow Neurology specialist recommendations, Lisinopril 40 mg BID. asked for New CT brain, slight interval decrease in the size of the large acute intraparenchymal hemorrhage. worsening condition. Hypertensive Emergency. - Nicardipine drip wean to DC,Use PRN Labetalol and hydralazine. - Started Norvasc 5 mg daily 04/12. Add metoprolol 25 mg by mouth every 8 hours, hydralazine 50 mg by mouth every 8 hours starting today 04/13/17 - SBP goal less than 150-160, added Lisinopril to try to keep her blood pressure under control Better control today. increased HCTZ to 50 mg daily. improving blood pressure. Electrolyte derangement - replaced and following. DVT GI prophylaxis - Teds SCDs - No pharmacological DVT prophylaxis due to acute ICH - Pepcid PT/OT/Speech Poor Prognosis not able to find relatives yet discussed with nurse. Discharge Planning Follow Specialist recommendations Percy Frank MD Apr 19, 2017 17:47
[2017-04-19 18:46] LABS: BACTERIA, URINE MANY /hpf; BILIRUBIN, URINE NEG (NEG); BLOOD, URINE TRACE (NEG); GLUCOSE,URINE NEG (NEG); KETONE, URINE NEG (NEG); NITRITE,URINE NEG (NEG); SQUAMOUS EPITHELIAL CELL URINE 1 /hpf (0-5); URINE COLOR YELLOW (YELLW/STRAW); URINE LEUKOCYTE ESTERASE LARGE (NEG)
--- NOTE | 2017-04-19 20:45 | HHI.PR ---
Review/Management Diagnosis left thalamic hemorrhage with intraventricular extension Plan continue BP control Diagnosis/Plan: Subjective Subjective Comments No acute events reported Active Medications Current Medications Medications (Trade) Dose Ordered Sig/Reymundo Route Start Time Stop Time Status Last Admin (NS Flush) 2 ml UNSCH PRN .XX 04/10/17 22:00 (NS Flush) 2 ml BID .XX 04/11/17 09:00 04/19/17 20:36 (Tylenol) 650 mg Q6H PRN PO 04/10/17 22:00 04/17/17 13:19 (Morphine Inj) 2 mg Q2H PRN IV 04/10/17 22:00 04/18/17 21:05 (Pepcid Inj) 20 mg Q12HR IV PUSH 04/11/17 09:00 04/19/17 20:35 (Zofran Inj) 4 mg Q6H PRN IV 04/10/17 22:00 (Reglan Inj) 10 mg Q6H PRN IV 04/10/17 22:00 (Compazine Supp) 25 mg Q12H PRN RECTAL 04/10/17 22:00 Miscellaneous Information 1 Q361D XX 04/10/17 22:00 04/10/17 22:00 (Chlorhexidine 2% Cloth) Taper DAILY@04 TOP 04/11/17 04:00 04/07/18 03:59 04/16/17 03:02 (Chlorhexidine 2% Cloth) 3 pack UNSCH PRN TOP 04/10/17 22:00 (Evelyn-Colace) 1 tab BID PO 04/11/17 09:00 04/19/17 20:27 (Milk Of Magnesia Liq) 30 ml Q12H PRN PO 04/10/17 22:00 (Senokot) 17.2 mg Q12H PRN PO 04/10/17 22:00 (Dulcolax Supp) 10 mg DAILY PRN RECTAL 04/10/17 22:00 (Lactulose Liq) 30 ml DAILY PRN PO 04/10/17 22:00 (Trandate Inj) 20 mg Q4H PRN IV PUSH 04/12/17 08:15 04/17/17 02:24 (Apresoline Inj) 20 mg Q4H PRN IV PUSH 04/12/17 08:15 04/16/17 17:38 Metoclopramide HCl 5 mg 5 mg Q8HR IV PUSH 04/12/17 16:00 04/19/17 20:35 Potassium Chloride 100 ml @ 50 mls/hr Q2H PRN IV 04/13/17 11:45 (KCl 20 Meq Premix Inj) 100 ml @ 50 mls/hr Q2H PRN IV 04/13/17 11:45 04/14/17 13:06 Potassium Bicarb/ Potassium Chloride 50 meq 50 meq UNSCH PRN PO 04/13/17 11:45 04/19/17 14:03 Potassium Chloride 100 ml @ 25 mls/hr UNSCH PRN IV 04/13/17 11:45 Potassium Chloride 100 ml @ 50 mls/hr Q2H PRN IV 04/13/17 11:45 (Magnesium Sulfate Inj/NS Inj) 100 ml @ 50 mls/hr UNSCH PRN IV 04/13/17 11:45 Magnesium Oxide 800 mg 800 mg UNSCH PRN PO 04/13/17 11:45 (Magnesium Sulfate Inj/NS Inj) 100 ml @ 50 mls/hr UNSCH PRN IV 04/13/17 11:45 Potassium Phosphate 2000 mg 2,000 mg Q4H PRN PO 04/13/17 11:45 (Sodium Phosphate Inj/NS 250 ml Inj) 250 ml @ 42 mls/hr UNSCH PRN IV 04/13/17 11:45 Potassium Phosphate 2000 mg 2,000 mg UNSCH PRN PO/TUBE 04/13/17 11:45 (Potassium Phosphate Inj/NS 250 ml Inj) 260 ml @ 42 mls/hr UNSCH PRN IV 04/13/17 11:45 (Lopressor) 50 mg Q8HR PO 04/14/17 14:00 04/19/17 14:03 (Catapres) 0.3 mg Q8HR PO 04/14/17 22:00 04/19/17 20:27 (Norvasc) 10 mg DAILY PO 04/14/17 19:45 04/19/17 08:45 (Vasotec Inj) 1.25 mg Q6H PRN IV PUSH 04/15/17 01:15 04/18/17 18:47 (Nitroglycerin 2% Oint) 2 inch Q6HR PRN TOPICAL 04/15/17 06:00 04/16/17 12:34 (Apresoline) 100 mg Q8HR PO 04/15/17 14:00 04/19/17 20:27 (Prinivil) 40 mg BID PO 04/16/17 21:00 04/19/17 20:27 (Hydrodiuril) 50 mg DAILY PO 04/19/17 09:00 04/19/17 08:45 Allergies Allergies Coded Allergies UNOBTAINABLE (Unverified04/10/17) Exam I&O / VS 04/18/17 04/18/17 04/19/17 15:00 23:00 07:00 Intake Total 611 ml 519 ml 401 ml Output Total 1700 ml 1300 ml 450 ml Balance -1089 ml -781 ml -49 ml Intake Oral 0 ml 0 ml IV Total 0 ml 0 ml 0 ml Tube Feeding 511 ml 519 ml 341 ml Other 100 ml 60 ml Output Urine Total 1700 ml 1300 ml 450 ml # Bowel Movements 0 0 0 Vital Signs Date Time Temp Pulse Resp B/P Pulse Ox O2 Delivery O2 Flow Rate FiO2 04/19/17 18:00 68 04/19/17 16:00 56 04/19/17 16:00 99.3 56 17 123/68 98 04/19/17 14:00 64 04/19/17 12:00 60 04/19/17 12:00 100.6 64 19 157/83 98 04/19/17 10:00 56 04/19/17 08:00 100.8 56 19 132/72 98 04/19/17 08:00 56 04/19/17 06:55 59 04/19/17 06:00 58 04/19/17 04:00 99.0 59 20 140/76 97 04/19/17 04:00 59 04/19/17 02:00 58 04/19/17 00:00 58 04/19/17 00:00 99.2 58 20 146/81 97 04/18/17 22:00 54 Exam Comments lethargic, follow simple commands Pupils 2 mm symmetric and reactive with left gaze 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 Objective Micro and Labs Laboratory Tests Test 04/19/17 04/19/17 04:19 17:45 White Blood Count 8.0 Red Blood Count 4.48 Hemoglobin 13.3 Hematocrit 39.7 Mean Corpuscular Volume 88.7 Mean Corpuscular Hemoglobin 29.7 Mean Corpuscular Hemoglobin 33.5 Concent Red Cell Distribution Width 13.2 Platelet Count 208 Mean Platelet Volume 10.5 Neutrophils (%) (Auto) 64.0 Lymphocytes (%) (Auto) 17.5 Monocytes (%) (Auto) 17.1 Eosinophils (%) (Auto) 1.2 Basophils (%) (Auto) 0.2 Neutrophils # (Auto) 5.1 Lymphocytes # (Auto) 1.4 Monocytes # (Auto) 1.4 Eosinophils # (Auto) 0.1 Basophils # (Auto) 0.0 CBC Comment DIFF FINAL Differential Comment Prothrombin Time 11.3 Prothromb Time International 1.0 Ratio Activated Partial 29.2 Thromboplast Time Sodium Level 137 Potassium Level 3.5 Chloride Level 98 Carbon Dioxide Level 27.4 Anion Gap 12 Blood Urea Nitrogen 22 Creatinine 0.66 Estimat Glomerular Filtration 93 Rate Random Glucose 136 Calcium Level 8.5 Urine Color YELLOW Urine Turbidity HAZY Urine pH 7.0 Urine Specific [place] 1.019 Urine Protein TRACE Urine Glucose (UA) NEG Urine Ketones NEG Urine Occult Blood TRACE Urine Nitrite NEG Urine Bilirubin NEG Urine Urobilinogen LESS THAN 2.0 Urine Leukocyte Esterase LARGE Urine RBC 9 Urine WBC Urine Squamous Epithelial 1 Cells Urine Bacteria MANY Microscopic Urinalysis Comment CATH-CULTURE IND Date/Time Procedure Status Source Growth 04/19/17 17:45 Urine Culture Received Urine Catheterized Urine Pending Jonathan Ravi PhD Apr 19, 2017 20:45
[2017-04-20] VITALS (13 sets, daily range): BP systolic 123–144; BP diastolic 63–80; PULSE 56–78; RESP 15–22; TEMP 99–101.1; O2SAT 94–100
[2017-04-20] MEDS: CHLORHEXIDINE GLUCONATE 2 % 1 PACK (2 CLOTHS) TOP SCH (04:00)
[2017-04-20] MEDS: cloNIDine HCL 0.3 MG TAB PO SCH ×3 (04:32→21:47)
[2017-04-20] MEDS: hydrALAZINE HCL 100 MG TAB PO SCH ×3 (04:32→21:47)
[2017-04-20] MEDS: METOPROLOL TARTRATE 50 MG TAB PO SCH ×3 (04:33→21:47)
[2017-04-20] MEDS: METOCLOPRAMIDE HCL 10 MG/2 ML VIAL IV PUSH SCH ×3 (04:33→21:50)
[2017-04-20] MEDS: SODIUM CHLORIDE 0.9% FLUSH 10 ML FLUSH SCH ×2 (09:09→21:46)
[2017-04-20] MEDS: LISINOPRIL 20 MG TAB PO SCH ×2 (09:09→21:47)
[2017-04-20] MEDS: FAMOTIDINE 20 MG/2 ML VIAL IV PUSH SCH ×2 (09:09→21:48)
[2017-04-20] MEDS: DOCUSATE SODIUM 50 MG/SENNA 8.6 MG TAB PO SCH ×2 (09:09→21:47)
[2017-04-20] MEDS: HYDROCHLOROTHIAZIDE 25 MG TAB PO SCH (09:09)
[2017-04-20] MEDS: ACETAMINOPHEN 325 MG TAB PO PRN (09:19)
--- NOTE | 2017-04-20 16:43 | HHI.PR ---
Subjective Remarks outreach specialist Notes: Middle-aged very pleasant female brought in by ambulance after being found in a park sitting next to a bench with altered mental status. Unknown time of onset. Patient was found by children playing in the park. Upon EMS arrival they noted right-sided weakness with a leftward gaze. Patient is nonverbal, she is following commands and is moving her left upper and left lower extremity. EKG was performed in the field and shows ST elevations in V1 through V3 with ST depressions and T-wave inversions in V5 and V6, therefore STEMI alert was also called by EMS. Patient was also notably hypertensive with blood pressures of 250s over 150s. Upon arrival to the emergency department the patient is awake, nonverbal, follows commands, protecting her airway, is able to move her left arm and left leg, however is unable to move her right arm and right leg. Patient was started on a Cardene drip for suspected intracranial hemorrhage and promptly taken to CT scan. At 8:05 PM case was discussed by with on-call gas and oil checker Dr. Quarles who agrees that this is most likely an intracranial hemorrhage based on clinical presentation, therefore STEMI alert was not initiated. CT of the head confirmed thalamic bleed with IVH extension. Subjective: 04/12: stable neuro exam. remains on cardene 5 mg per hour. PRN Hydralazine and labetalol added. Ct imaging yesterday stable. 04/13: Patient still on CCM service as Cardene was re started. Start PO metoprolol and hydralazine. Neuro exam unchanged Hospitalist Notes: 04/14: Patient seen in the presence of nurse Miss Hutchins, she states there is no relatives to notify and not able to get information about the patient, continue with Right hemiplegia and some activity on the left side, continue Obtunded, supportive care started by Rehabilitation Counselor will continue present care will add Neurology specialist for recommendations. 04/15: Seen in her bedroom, no nausea, vomit or diarrhea, continue non verbal, Obtunded, uncontrolled blood pressure added Lisinopril 04/16: Patient seen with nurse, at this time Lethargic awake when touched on the left side of her body, opens her eyes, did not follow commands for us. 04/17: No changes, Poor prognosis. 04/18: Seen in her bedroom and discussed with nurse Miss Morton, she opened her eyes early today and also was able to follow some commands with Physical Therapy. 04/19: Stable in her bedroom, worsening Mental Sphere, non verbal not able to follow any command, pupils Miotic probable related to medicines, Poor prognosis at this time, not yet thinking in Brain continue present care and following specialist recommendations. 04/20: Still no major change continue Obtunded. try to open eyes on painful sensation. Objective Vital Signs Date Time Temp Pulse Resp B/P Pulse Ox O2 Delivery O2 Flow Rate FiO2 04/20/17 14:00 70 04/20/17 12:00 64 04/20/17 12:00 99.0 68 18 129/72 98 04/20/17 11:04 99.8 04/20/17 10:00 70 04/20/17 08:00 101.0 61 17 123/73 94 04/20/17 08:00 64 04/20/17 06:00 66 04/20/17 04:00 101.1 64 22 135/75 97 04/20/17 04:00 64 04/20/17 02:00 62 04/20/17 00:00 100.4 56 15 125/71 97 04/20/17 00:00 56 04/19/17 22:00 60 04/19/17 20:00 100.4 58 19 146/81 98 04/19/17 20:00 58 04/19/17 18:00 68 I/O 04/19/17 04/19/17 04/19/17 04/20/17 04/20/17 04/20/17 07:00 15:00 23:00 07:00 15:00 23:00 Intake Total 401 ml 771 ml 422 ml 480 ml 422 ml Output Total 450 ml 900 ml 425 ml 350 ml 425 ml Balance -49 ml -129 ml -3 ml 130 ml -3 ml Intake Oral 0 ml IV Total 0 ml 0 ml Tube Feeding 341 ml 571 ml 422 ml 480 ml 422 ml Other 60 ml 200 ml Output Urine Total 450 ml 900 ml 425 ml 350 ml 425 ml # Bowel Movements 0 0 Result Diagram: 04/19/17 0419 04/19/17 0419 Imaging Last Impressions Head CT 04/17/17 08 Signed Impressions: Service Date/Time: Monday, April 17, 2017 08:19 - CONCLUSION: 1. Slight interval decrease in the size of the large acute intraparenchymal hemorrhage within the left basal ganglia which now measures 4.7 x 2.5 cm. There has also been decrease in the volume of the acute intraventricular hemorrhage and decrease in the subfalcine herniation to the right which now measures 4 mm. 2. Moderate periventricular and subcortical white matter small vessel ischemic changes bilaterally. 3. Mild ventriculomegaly suggesting central cerebral atrophy versus mild hydrocephalus. Clinical correlation is recommended. Denny Hart MD Abdomen X-Ray 04/12/17 1538 Signed Impressions: Service Date/Time: Wednesday, April 12, 2017 17:29 - CONCLUSION: Nonobstructive bowel gas pattern. Suresh Zapata MD Chest X-Ray 04/10/171999 Signed Impressions: Service Date/Time: Monday, April 10, 2017 21:03 - CONCLUSION: No evidence of acute cardiopulmonary disease. Hu Henderson MD Neck CTA 04/10/17 0000 Signed Impressions: Service Date/Time: Monday, April 10, 2017 22:28 - CONCLUSION: The internal carotid arteries are normal bilaterally. No significant atherosclerotic disease is noted. Eliud Du MD Head CTA 04/10/17 0000 Signed Impressions: Service Date/Time: Monday, April 10, 2017 22:50 - CONCLUSION: Mild dilatation of the basilar tip without discrete aneurysm. Some narrowing of the left middle cerebral branch after the bifurcation. Prominent left thalamic hemorrhage. Eliud Du MD Procedures No procedures performed Other Results Laboratory Tests Test 04/14/17 04/18/17 04/19/17 04/19/17 20:01 03:30 04:19 17:45 Hepatitis A IgM Antibody NEGATIVE Hepatitis B Surface Antigen NEGATIVE Hepatitis B Core IgM Antibody NEGATIVE Hepatitis C Antibody NEGATIVE Magnesium Level 2.3 MG/DL White Blood Count 8.0 TH/MM3 Red Blood Count 4.48 MIL/MM3 Hemoglobin 13.3 GM/DL Hematocrit 39.7 % Mean Corpuscular Volume 88.7 FL Mean Corpuscular Hemoglobin 29.7 PG Mean Corpuscular Hemoglobin 33.5 % Concent Red Cell Distribution Width 13.2 % Platelet Count 208 TH/MM3 Mean Platelet Volume 10.5 FL Neutrophils (%) (Auto) 64.0 % Lymphocytes (%) (Auto) 17.5 % Monocytes (%) (Auto) 17.1 % Eosinophils (%) (Auto) 1.2 % Basophils (%) (Auto) 0.2 % Neutrophils # (Auto) 5.1 TH/MM3 Lymphocytes # (Auto) 1.4 TH/MM3 Monocytes # (Auto) 1.4 TH/MM3 Eosinophils # (Auto) 0.1 TH/MM3 Basophils # (Auto) 0.0 TH/MM3 CBC Comment DIFF FINAL Differential Comment Prothrombin Time 11.3 SEC Prothromb Time International 1.0 RATIO Ratio Activated Partial 29.2 SEC Thromboplast Time Sodium Level 137 MEQ/L Potassium Level 3.5 MEQ/L Chloride Level 98 MEQ/L Carbon Dioxide Level 27.4 MEQ/L Anion Gap 12 MEQ/L Blood Urea Nitrogen 22 MG/DL Creatinine 0.66 MG/DL Estimat Glomerular Filtration 93 ML/MIN Rate Random Glucose 136 MG/DL Calcium Level 8.5 MG/DL Urine Color YELLOW Urine Turbidity HAZY Urine pH 7.0 Urine Specific Crawford 1.019 Urine Protein TRACE mg/dL Urine Glucose (UA) NEG mg/dL Urine Ketones NEG mg/dL Urine Occult Blood TRACE Urine Nitrite NEG Urine Bilirubin NEG Urine Urobilinogen LESS THAN 2.0 MG/DL Urine Leukocyte Esterase LARGE Urine RBC 9 /hpf Urine WBC /hpf Urine Squamous Epithelial 1 /hpf Cells Urine Bacteria MANY /hpf Microscopic Urinalysis Comment CATH-CULTURE IND Objective Remarks GENERAL: Well-developed patient. Nonverbal SKIN: Warm and dry. HEAD: Normocephalic. NG tube in place. EYES: No scleral icterus. No injection or drainage. NECK: trachea midline. No JVD. CARDIOVASCULAR: Regular rate and rhythm without murmurs, gallops, or rubs. Remains hypotensive RESPIRATORY: Breath sounds equal bilaterally. No accessory muscle use. GASTROINTESTINAL: Abdomen soft, non-tender, nondistended. MUSCULOSKELETAL: No cyanosis, or edema. EXTREMITIES: No clubbing cyanosis or edema, NEURO: Obtunded. Medications and IVs Current Medications Medications (Trade) Dose Ordered Sig/Reymundo Route Start Time Stop Time Status Last Admin (NS Flush) 2 ml UNSCH PRN .XX 04/10/17 22:00 (NS Flush) 2 ml BID .XX 04/11/17 09:00 04/20/17 09:09 (Tylenol) 650 mg Q6H PRN PO 04/10/17 22:00 04/20/17 09:19 (Morphine Inj) 2 mg Q2H PRN IV 04/10/17 22:00 04/18/17 21:05 (Pepcid Inj) 20 mg Q12HR IV PUSH 04/11/17 09:00 04/20/17 09:09 (Zofran Inj) 4 mg Q6H PRN IV 04/10/17 22:00 (Reglan Inj) 10 mg Q6H PRN IV 04/10/17 22:00 (Compazine Supp) 25 mg Q12H PRN RECTAL 04/10/17 22:00 Miscellaneous Information 1 Q361D XX 04/10/17 22:00 04/10/17 22:00 (Chlorhexidine 2% Cloth) Taper DAILY@04 TOP 04/11/17 04:00 04/07/18 03:59 04/20/17 04:00 (Chlorhexidine 2% Cloth) 3 pack UNSCH PRN TOP 04/10/17 22:00 (Evelyn-Colace) 1 tab BID PO 04/11/17 09:00 04/20/17 09:09 (Milk Of Magnesia Liq) 30 ml Q12H PRN PO 04/10/17 22:00 (Senokot) 17.2 mg Q12H PRN PO 04/10/17 22:00 (Dulcolax Supp) 10 mg DAILY PRN RECTAL 04/10/17 22:00 (Lactulose Liq) 30 ml DAILY PRN PO 04/10/17 22:00 (Trandate Inj) 20 mg Q4H PRN IV PUSH 04/12/17 08:15 04/17/17 02:24 (Apresoline Inj) 20 mg Q4H PRN IV PUSH 04/12/17 08:15 04/16/17 17:38 Metoclopramide HCl 5 mg 5 mg Q8HR IV PUSH 04/12/17 16:00 04/20/17 15:21 Potassium Chloride 100 ml @ 50 mls/hr Q2H PRN IV 04/13/17 11:45 (KCl 20 Meq Premix Inj) 100 ml @ 50 mls/hr Q2H PRN IV 04/13/17 11:45 04/14/17 13:06 Potassium Bicarb/ Potassium Chloride 50 meq 50 meq UNSCH PRN PO 04/13/17 11:45 04/19/17 14:03 Potassium Chloride 100 ml @ 25 mls/hr UNSCH PRN IV 04/13/17 11:45 Potassium Chloride 100 ml @ 50 mls/hr Q2H PRN IV 04/13/17 11:45 (Magnesium Sulfate Inj/NS Inj) 100 ml @ 50 mls/hr UNSCH PRN IV 04/13/17 11:45 Magnesium Oxide 800 mg 800 mg UNSCH PRN PO 04/13/17 11:45 (Magnesium Sulfate Inj/NS Inj) 100 ml @ 50 mls/hr UNSCH PRN IV 04/13/17 11:45 Potassium Phosphate 2000 mg 2,000 mg Q4H PRN PO 04/13/17 11:45 (Sodium Phosphate Inj/NS 250 ml Inj) 250 ml @ 42 mls/hr UNSCH PRN IV 04/13/17 11:45 Potassium Phosphate 2000 mg 2,000 mg UNSCH PRN PO/TUBE 04/13/17 11:45 (Potassium Phosphate Inj/NS 250 ml Inj) 260 ml @ 42 mls/hr UNSCH PRN IV 04/13/17 11:45 (Lopressor) 50 mg Q8HR PO 04/14/17 14:00 04/20/17 15:21 (Catapres) 0.3 mg Q8HR PO 04/14/17 22:00 04/20/17 15:21 (Norvasc) 10 mg DAILY PO 04/14/17 19:45 04/20/17 09:09 (Vasotec Inj) 1.25 mg Q6H PRN IV PUSH 04/15/17 01:15 04/18/17 18:47 (Nitroglycerin 2% Oint) 2 inch Q6HR PRN TOPICAL 04/15/17 06:00 04/16/17 12:34 (Apresoline) 100 mg Q8HR PO 04/15/17 14:00 04/20/17 15:21 (Prinivil) 40 mg BID PO 04/16/17 21:00 04/20/17 09:09 (Hydrodiuril) 50 mg DAILY PO 04/19/17 09:00 04/20/17 09:09 A/P Assessment and Plan Intracranial bleed - Thalamic ICH with IVH extension, ICH score 3, No surgical intervention as per Dr. Wang, recommended to keep systolic blood pressure between 120 to 150 mm Hg. neuro checks and follow Neurology specialist recommendations, Lisinopril 40 mg BID. asked for New CT brain, slight interval decrease in the size of the large acute intraparenchymal hemorrhage. stable on her condition. Hypertensive Emergency. - Nicardipine drip wean to DC,Use PRN Labetalol and hydralazine. - Started Norvasc 5 mg daily 04/12. Add metoprolol 25 mg by mouth every 8 hours, hydralazine 50 mg by mouth every 8 hours starting today 04/13/17 - SBP goal less than 150-160, added Lisinopril to try to keep her blood pressure under control Controlled decreasing dosages of Lisinopril to 30 mg BID and following titrate up or down to obtain controlled blood pressures. Electrolyte derangement - replaced and following. DVT GI prophylaxis - Teds SCDs - No pharmacological DVT prophylaxis due to acute ICH - Pepcid PT/OT/Speech Poor Prognosis not able to find relatives yet discussed with nurse. Discharge Planning Follow Specialist recommendations Percy Frank MD Apr 20, 2017 16:43
[2017-04-20] MEDS ORDERED: PILL SPLITTER OTHER PRN (17:15)
--- NOTE | 2017-04-20 20:28 | HHI.PR ---
Review/Management Diagnosis left thalamic hemorrhage with intraventricular extension Plan recheck CT continue BP control Diagnosis/Plan: Subjective Subjective Comments No acute events reported Active Medications Current Medications Medications (Trade) Dose Ordered Sig/Reymundo Route Start Time Stop Time Status Last Admin (NS Flush) 2 ml UNSCH PRN .XX 04/10/17 22:00 (NS Flush) 2 ml BID .XX 04/11/17 09:00 04/20/17 09:09 (Tylenol) 650 mg Q6H PRN PO 04/10/17 22:00 04/20/17 09:19 (Morphine Inj) 2 mg Q2H PRN IV 04/10/17 22:00 04/18/17 21:05 (Pepcid Inj) 20 mg Q12HR IV PUSH 04/11/17 09:00 04/20/17 09:09 (Zofran Inj) 4 mg Q6H PRN IV 04/10/17 22:00 (Reglan Inj) 10 mg Q6H PRN IV 04/10/17 22:00 (Compazine Supp) 25 mg Q12H PRN RECTAL 04/10/17 22:00 Miscellaneous Information 1 Q361D XX 04/10/17 22:00 04/10/17 22:00 (Chlorhexidine 2% Cloth) Taper DAILY@04 TOP 04/11/17 04:00 04/07/18 03:59 04/20/17 04:00 (Chlorhexidine 2% Cloth) 3 pack UNSCH PRN TOP 04/10/17 22:00 (Evelyn-Colace) 1 tab BID PO 04/11/17 09:00 04/20/17 09:09 (Milk Of Magnesia Liq) 30 ml Q12H PRN PO 04/10/17 22:00 (Senokot) 17.2 mg Q12H PRN PO 04/10/17 22:00 (Dulcolax Supp) 10 mg DAILY PRN RECTAL 04/10/17 22:00 (Lactulose Liq) 30 ml DAILY PRN PO 04/10/17 22:00 (Trandate Inj) 20 mg Q4H PRN IV PUSH 04/12/17 08:15 04/17/17 02:24 (Apresoline Inj) 20 mg Q4H PRN IV PUSH 04/12/17 08:15 04/16/17 17:38 Metoclopramide HCl 5 mg 5 mg Q8HR IV PUSH 04/12/17 16:00 04/20/17 15:21 Potassium Chloride 100 ml @ 50 mls/hr Q2H PRN IV 04/13/17 11:45 (KCl 20 Meq Premix Inj) 100 ml @ 50 mls/hr Q2H PRN IV 04/13/17 11:45 04/14/17 13:06 Potassium Bicarb/ Potassium Chloride 50 meq 50 meq UNSCH PRN PO 04/13/17 11:45 04/19/17 14:03 Potassium Chloride 100 ml @ 25 mls/hr UNSCH PRN IV 04/13/17 11:45 Potassium Chloride 100 ml @ 50 mls/hr Q2H PRN IV 04/13/17 11:45 (Magnesium Sulfate Inj/NS Inj) 100 ml @ 50 mls/hr UNSCH PRN IV 04/13/17 11:45 Magnesium Oxide 800 mg 800 mg UNSCH PRN PO 04/13/17 11:45 (Magnesium Sulfate Inj/NS Inj) 100 ml @ 50 mls/hr UNSCH PRN IV 04/13/17 11:45 Potassium Phosphate 2000 mg 2,000 mg Q4H PRN PO 04/13/17 11:45 (Sodium Phosphate Inj/NS 250 ml Inj) 250 ml @ 42 mls/hr UNSCH PRN IV 04/13/17 11:45 Potassium Phosphate 2000 mg 2,000 mg UNSCH PRN PO/TUBE 04/13/17 11:45 (Potassium Phosphate Inj/NS 250 ml Inj) 260 ml @ 42 mls/hr UNSCH PRN IV 04/13/17 11:45 (Lopressor) 50 mg Q8HR PO 04/14/17 14:00 04/20/17 15:21 (Catapres) 0.3 mg Q8HR PO 04/14/17 22:00 04/20/17 15:21 (Norvasc) 10 mg DAILY PO 04/14/17 19:45 04/20/17 09:09 (Vasotec Inj) 1.25 mg Q6H PRN IV PUSH 04/15/17 01:15 04/18/17 18:47 (Nitroglycerin 2% Oint) 2 inch Q6HR PRN TOPICAL 04/15/17 06:00 04/16/17 12:34 (Apresoline) 100 mg Q8HR PO 04/15/17 14:00 04/20/17 15:21 (Hydrodiuril) 50 mg DAILY PO 04/19/17 09:00 04/20/17 09:09 (Prinivil) 30 mg BID PO 04/20/17 21:00 (Pill Splitter) 1 ea UNSCH PRN OTHER 04/20/17 17:15 Allergies Allergies Coded Allergies UNOBTAINABLE (Unverified04/10/17) Exam I&O / VS 04/19/17 04/19/17 04/20/17 15:00 23:00 07:00 Intake Total 771 ml 422 ml 480 ml Output Total 900 ml 425 ml 350 ml Balance -129 ml -3 ml 130 ml IV Total 0 ml Tube Feeding 571 ml 422 ml 480 ml Other 200 ml Output Urine Total 900 ml 425 ml 350 ml # Bowel Movements 0 Vital Signs Date Time Temp Pulse Resp B/P Pulse Ox O2 Delivery O2 Flow Rate FiO2 04/20/17 20:00 67 04/20/17 20:00 100.2 71 20 144/80 98 04/20/17 18:00 70 04/20/17 16:00 64 04/20/17 16:00 99.0 68 20 125/63 100 04/20/17 14:00 70 04/20/17 12:00 64 04/20/17 12:00 99.0 68 18 129/72 98 04/20/17 11:04 99.8 04/20/17 10:00 70 04/20/17 08:00 101.0 61 17 123/73 94 04/20/17 08:00 64 04/20/17 06:00 66 04/20/17 04:00 101.1 64 22 135/75 97 04/20/17 04:00 64 04/20/17 02:00 62 04/20/17 00:00 100.4 56 15 125/71 97 04/20/17 00:00 56 04/19/17 22:00 60 Exam Comments lethargic, follow simple commands Pupils 2 mm symmetric and reactive with left gaze preference [employer]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
[2017-04-21] VITALS (12 sets, daily range): BP systolic 112–151; BP diastolic 66–80; PULSE 52–66; RESP 16–20; TEMP 98.2–99.6; O2SAT 91–100
[2017-04-21] MEDS: CHLORHEXIDINE GLUCONATE 2 % 1 PACK (2 CLOTHS) TOP SCH (04:00)
[2017-04-21] MEDS: hydrALAZINE HCL 100 MG TAB PO SCH ×3 (05:24→21:42)
[2017-04-21] MEDS: METOPROLOL TARTRATE 50 MG TAB PO SCH ×3 (05:24→21:42)
[2017-04-21] MEDS: cloNIDine HCL 0.3 MG TAB PO SCH ×3 (05:24→21:42)
[2017-04-21] MEDS: METOCLOPRAMIDE HCL 10 MG/2 ML VIAL IV PUSH SCH ×3 (05:24→21:41)
--- NOTE | 2017-04-21 05:35 | RADRPT ---
EXAM DATE/TIME: 04/21/2017 04:57 [facility] COMPARISON: CT BRAIN W/O CONTRAST, April 17, 2017, 8:19. INDICATIONS : Follow-up hemorrhage. RADIATION DOSE: 56.35 CTDIvol (mGy) MEDICAL HISTORY : Non-responsive. SURGICAL HISTORY : Non-responsive. ENCOUNTER: Subsequent ACUITY: 2 weeks PAIN SCALE: Non-responsive LOCATION: cranial TECHNIQUE: Multiple contiguous axial images were obtained of the head. Using automated exposure control and adj ustment of the mA and/or kV according to patient size, radiation dose was kept as low as reasonably a chievable to obtain optimal diagnostic quality images. FINDINGS: There is a stable left lung hematoma. There is minimal mass effect and midline shift but no signs of herniation. The ventricles are upper limits of normal in size. There is periventricular hypodensity c ompatible with chronic ischemic change slightly more than expected for patient this age. CONCLUSION: 1. Stable left thalamic hematoma. No acute hemorrhage is identified Cristopher Frias MD on April 21, 2017 at 5:31 Board Certified Radiologist. This report was verified electronically.
--- NOTE | 2017-04-21 08:14 | HHI.PR ---
Subjective Remarks Sleepy. Doesn't appear in distress. She is opening eyes however she doesn't follow any commands at this time, falling asleep easily. Per nurse she is following some commands, right hand. VSS . Objective Vitals Vital Signs Date Time Temp Pulse Resp B/P Pulse Ox O2 Delivery O2 Flow Rate FiO2 04/21/17 06:00 65 04/21/17 04:00 66 04/21/17 04:00 99.5 66 16 151/79 99 04/21/17 02:00 59 04/21/17 00:00 99.6 57 16 123/66 99 04/21/17 00:00 57 04/20/17 22:00 78 04/20/17 20:00 67 04/20/17 20:00 100.2 71 20 144/80 98 04/20/17 18:00 70 04/20/17 16:00 64 04/20/17 16:00 99.0 68 20 125/63 100 04/20/17 14:00 70 04/20/17 12:00 64 04/20/17 12:00 99.0 68 18 129/72 98 04/20/17 11:04 99.8 04/20/17 10:00 70 I/O 04/20/17 04/20/17 04/20/17 04/21/17 04/21/17 04/21/17 07:00 15:00 23:00 07:00 15:00 23:00 Intake Total 480 ml 422 ml 537 ml 191 ml Output Total 350 ml 425 ml 1175 ml 675 ml Balance 130 ml -3 ml -638 ml -484 ml IV Total 0 ml 0 ml Tube Feeding 480 ml 422 ml 447 ml 131 ml Tube Irrigant 90 ml 60 ml Output Urine Total 350 ml 425 ml 1175 ml 675 ml # Bowel Movements 0 0 Result Diagram: 04/19/17 0419 04/19/17 0419 Imaging Last Impressions Head CT 04/20/17 0000 Signed Impressions: Service Date/Time: Friday, April 21, 2017 04:57 - CONCLUSION: 1. Stable left thalamic hematoma. No acute hemorrhage is identified Cristopher Frias MD Abdomen X-Ray 04/12/17 1538 Signed Impressions: Service Date/Time: Wednesday, April 12, 2017 17:29 - CONCLUSION: Nonobstructive bowel gas pattern. Suresh Zapata MD Chest X-Ray 04/10/171999 Signed Impressions: Service Date/Time: Monday, April 10, 2017 21:03 - CONCLUSION: No evidence of acute cardiopulmonary disease. Hu Henderson MD Neck CTA 04/10/17 Signed Impressions: Service Date/Time: Monday, April 10, 2017 22:28 - CONCLUSION: The internal carotid arteries are normal bilaterally. No significant atherosclerotic disease is noted. Eliud Du MD Head CTA 04/10/17 Signed Impressions: Service Date/Time: Monday, April 10, 2017 22:50 - CONCLUSION: Mild dilatation of the basilar tip without discrete aneurysm. Some narrowing of the left middle cerebral branch after the bifurcation. Prominent left thalamic hemorrhage. Eliud Du MD Objective Remarks GENERAL: Well-developed patient. Nonverbal SKIN: Warm and dry. HEAD: Normocephalic. NG tube in place. EYES: No scleral icterus. No injection or drainage. NECK: trachea midline. No JVD. CARDIOVASCULAR: Regular rate and rhythm without murmurs, gallops, or rubs. Remains hypotensive RESPIRATORY: Breath sounds equal bilaterally. No accessory muscle use. GASTROINTESTINAL: Abdomen soft, non-tender, nondistended. MUSCULOSKELETAL: No cyanosis, or edema. EXTREMITIES: No clubbing cyanosis or edema, NEURO: Obtunded. A/P Assessment and Plan Intracranial bleed - Thalamic ICH with IVH extension, ICH score 3, No surgical intervention as per Dr. Wang, recommended to keep systolic blood pressure between 120 to 150 mm Hg. neuro checks and follow Neurology specialist recommendations, Lisinopril 40 mg BID. asked for New CT brain, slight interval decrease in the size of the large acute intraparenchymal hemorrhage. stable on her condition. Hypertensive Emergency. - Nicardipine drip wean to DC,Use PRN Labetalol and hydralazine. - Started Norvasc 5 mg daily 04/12. Add metoprolol 25 mg by mouth every 8 hours, hydralazine 50 mg by mouth every 8 hours starting today 04/13/17 - SBP goal less than 150-160, added Lisinopril to try to keep her blood pressure under control Controlled decreasing dosages of Lisinopril to 30 mg BID and following titrate up or down to obtain controlled blood pressures. Electrolyte derangement - replaced and following. DVT GI prophylaxis - Teds SCDs - No pharmacological DVT prophylaxis due to acute ICH - Pepcid PT/OT/Speech Poor Prognosis not able to find relatives yet discussed with nurse. Discharge Planning Pending improvement, neuro recommendations/clearance. Gina Delatorre MD Apr 21, 2017 08:14
[2017-04-21] MEDS: SODIUM CHLORIDE 0.9% FLUSH 10 ML FLUSH SCH ×2 (09:00→21:00)
[2017-04-21] MEDS: HYDROCHLOROTHIAZIDE 25 MG TAB PO SCH (10:13)
[2017-04-21] MEDS: FAMOTIDINE 20 MG/2 ML VIAL IV PUSH SCH ×2 (10:13→21:42)
[2017-04-21] MEDS: DOCUSATE SODIUM 50 MG/SENNA 8.6 MG TAB PO SCH ×2 (10:14→21:00)
[2017-04-21] MEDS: LISINOPRIL 20 MG TAB PO SCH ×2 (10:15→21:42)
--- NOTE | 2017-04-21 18:13 | HHI.PR ---
Review/Management Diagnosis left thalamic hemorrhage with intraventricular extension, CT stable Plan continue BP control Diagnosis/Plan: Subjective Subjective Comments No acute events reported Active Medications Current Medications Medications (Trade) Dose Ordered Sig/Reymundo Route Start Time Stop Time Status Last Admin (NS Flush) 2 ml UNSCH PRN .XX 04/10/17 22:00 (NS Flush) 2 ml BID .XX 04/11/17 09:00 04/21/17 09:00 (Tylenol) 650 mg Q6H PRN PO 04/10/17 22:00 04/20/17 09:19 (Morphine Inj) 2 mg Q2H PRN IV 04/10/17 22:00 04/18/17 21:05 (Pepcid Inj) 20 mg Q12HR IV PUSH 04/11/17 09:00 04/21/17 10:13 (Zofran Inj) 4 mg Q6H PRN IV 04/10/17 22:00 (Reglan Inj) 10 mg Q6H PRN IV 04/10/17 22:00 (Compazine Supp) 25 mg Q12H PRN RECTAL 04/10/17 22:00 Miscellaneous Information 1 Q361D XX 04/10/17 22:00 04/10/17 22:00 (Chlorhexidine 2% Cloth) Taper DAILY@04 TOP 04/11/17 04:00 04/07/18 03:59 04/20/17 04:00 (Chlorhexidine 2% Cloth) 3 pack UNSCH PRN TOP 04/10/17 22:00 (Evelyn-Colace) 1 tab BID PO 04/11/17 09:00 04/21/17 10:14 (Milk Of Magnesia Liq) 30 ml Q12H PRN PO 04/10/17 22:00 (Senokot) 17.2 mg Q12H PRN PO 04/10/17 22:00 (Dulcolax Supp) 10 mg DAILY PRN RECTAL 04/10/17 22:00 (Lactulose Liq) 30 ml DAILY PRN PO 04/10/17 22:00 (Trandate Inj) 20 mg Q4H PRN IV PUSH 04/12/17 08:15 04/17/17 02:24 (Apresoline Inj) 20 mg Q4H PRN IV PUSH 04/12/17 08:15 04/16/17 17:38 Metoclopramide HCl 5 mg 5 mg Q8HR IV PUSH 04/12/17 16:00 04/21/17 17:12 Potassium Chloride 100 ml @ 50 mls/hr Q2H PRN IV 04/13/17 11:45 (KCl 20 Meq Premix Inj) 100 ml @ 50 mls/hr Q2H PRN IV 04/13/17 11:45 04/14/17 13:06 Potassium Bicarb/ Potassium Chloride 50 meq 50 meq UNSCH PRN PO 04/13/17 11:45 04/19/17 14:03 Potassium Chloride 100 ml @ 25 mls/hr UNSCH PRN IV 04/13/17 11:45 Potassium Chloride 100 ml @ 50 mls/hr Q2H PRN IV 04/13/17 11:45 (Magnesium Sulfate Inj/NS Inj) 100 ml @ 50 mls/hr UNSCH PRN IV 04/13/17 11:45 Magnesium Oxide 800 mg 800 mg UNSCH PRN PO 04/13/17 11:45 (Magnesium Sulfate Inj/NS Inj) 100 ml @ 50 mls/hr UNSCH PRN IV 04/13/17 11:45 Potassium Phosphate 2000 mg 2,000 mg Q4H PRN PO 04/13/17 11:45 (Sodium Phosphate Inj/NS 250 ml Inj) 250 ml @ 42 mls/hr UNSCH PRN IV 04/13/17 11:45 Potassium Phosphate 2000 mg 2,000 mg UNSCH PRN PO/TUBE 04/13/17 11:45 (Potassium Phosphate Inj/NS 250 ml Inj) 260 ml @ 42 mls/hr UNSCH PRN IV 04/13/17 11:45 (Lopressor) 50 mg Q8HR PO 04/14/17 14:00 04/21/17 17:04 (Catapres) 0.3 mg Q8HR PO 04/14/17 22:00 04/21/17 17:04 (Norvasc) 10 mg DAILY PO 04/14/17 19:45 04/21/17 10:13 (Vasotec Inj) 1.25 mg Q6H PRN IV PUSH 04/15/17 01:15 04/18/17 18:47 (Nitroglycerin 2% Oint) 2 inch Q6HR PRN TOPICAL 04/15/17 06:00 04/16/17 12:34 (Apresoline) 100 mg Q8HR PO 04/15/17 14:00 04/21/17 17:04 (Hydrodiuril) 50 mg DAILY PO 04/19/17 09:00 04/21/17 10:13 (Prinivil) 30 mg BID PO 04/20/17 21:00 04/21/17 10:15 (Pill Splitter) 1 ea UNSCH PRN OTHER 04/20/17 17:15 Allergies Allergies Coded Allergies UNOBTAINABLE (Unverified04/10/17) Exam I&O / VS 04/20/17 04/20/17 04/21/17 15:00 23:00 07:00 Intake Total 422 ml 537 ml 191 ml Output Total 425 ml 1175 ml 675 ml Balance -3 ml -638 ml -484 ml IV Total 0 ml 0 ml Tube Feeding 422 ml 447 ml 131 ml Tube Irrigant 90 ml 60 ml Output Urine Total 425 ml 1175 ml 675 ml # Bowel Movements 0 0 Vital Signs Date Time Temp Pulse Resp B/P Pulse Ox O2 Delivery O2 Flow Rate FiO2 04/21/17 12:00 56 04/21/17 12:00 98.3 56 16 151/76 100 04/21/17 10:00 52 04/21/17 08:00 98.2 54 17 126/80 100 04/21/17 08:00 54 04/21/17 06:00 65 04/21/17 04:00 66 04/21/17 04:00 99.5 66 16 151/79 99 04/21/17 02:00 59 04/21/17 00:00 99.6 57 16 123/66 99 04/21/17 00:00 57 04/20/17 22:00 78 04/20/17 20:00 67 04/20/17 20:00 100.2 71 20 144/80 98 Exam Comments lethargic, follow simple commands Pupils 2 mm symmetric and reactive with left gaze preference Partner voluntarily left but not right Objective Radiology Results CT--stable left thalamic hemorrhage with no sign of hydrocephalus Micro and Labs Date/Time Procedure Status Source Growth 04/19/17 17:45 Urine Culture - Final Complete Urine Catheterized Urine Escherichia Coli Klebsiella Pneumoniae Jonathan Ravi PhD Apr 21, 2017 18:13
[2017-04-22] VITALS (12 sets, daily range): BP systolic 118–160; BP diastolic 68–90; PULSE 52–74; RESP 14–20; TEMP 97.8–101; O2SAT 98–100
[2017-04-22] MEDS: CHLORHEXIDINE GLUCONATE 2 % 1 PACK (2 CLOTHS) TOP SCH (04:00)
[2017-04-22 05:02] LABS: AUTOMATED NEUTROPHIL # 5.1 TH/MM3 (1.8-7.7); BASOPHIL % 0.4 % (0.0-2.0); EOSINOPHIL # 0.2 TH/MM3 (0-0.4); EOSINOPHIL % 3.1 % (0.0-4.0); HEMATOCRIT 41.6 % (35.0-46.0); HEMOGLOBIN 13.7 GM/DL (11.6-15.3); LYMPH % 14.5 % (9.0-44.0); LYMPHOCYTE # 1.1 TH/MM3 (1.0-4.8); MEAN CELL VOLUME 88.5 FL (80.0-100.0); MEAN CORPUSCULAR HEMOGLOBIN 29.2 PG (27.0-34.0); MEAN PLATELET VOLUME 10.6 FL (7.0-11.0); MONO % 13.3 % (0.0-8.0); NEUT % 68.7 % (16.0-70.0); PLATELET COUNT 260 TH/MM3 (150-450); RED CELL DISTRIBUTION WIDTH 13.1 % (11.6-17.2); WHITE BLOOD COUNT 7.4 TH/MM3 (4.0-11.0)
[2017-04-22 05:20] LABS: BICARBONATE 30.1 MEQ/L (21.0-32.0); CALCIUM 8.6 MG/DL (8.5-10.1); CREATININE 0.57 MG/DL (0.50-1.00); MAGNESIUM 2.2 MG/DL (1.5-2.5)
[2017-04-22] MEDS: METOCLOPRAMIDE HCL 10 MG/2 ML VIAL IV PUSH SCH ×3 (06:00→21:25)
[2017-04-22] MEDS: cloNIDine HCL 0.3 MG TAB PO SCH ×3 (07:45→21:25)
[2017-04-22] MEDS: METOPROLOL TARTRATE 50 MG TAB PO SCH ×3 (07:45→21:25)
[2017-04-22] MEDS: hydrALAZINE HCL 100 MG TAB PO SCH ×3 (07:45→21:26)
--- NOTE | 2017-04-22 09:20 | HHI.PR ---
Subjective Remarks Opening eyes, doesn't follow commands. VS stable . Discussed with the nurse, will call police for fingerprinting. Objective Vitals Vital Signs Date Time Temp Pulse Resp B/P Pulse Ox O2 Delivery O2 Flow Rate FiO2 04/22/17 06:00 62 04/22/17 04:00 62 04/22/17 04:00 98.5 62 20 127/70 98 04/22/17 02:00 56 04/22/17 00:00 98.4 52 14 118/68 100 04/22/17 00:00 52 04/21/17 22:00 56 04/21/17 20:00 98.4 58 20 112/76 92 04/21/17 20:00 54 04/21/17 18:00 60 04/21/17 16:00 99.1 60 18 122/70 91 04/21/17 16:00 62 04/21/17 14:00 58 04/21/17 12:00 56 04/21/17 12:00 98.3 56 16 151/76 100 04/21/17 10:00 52 I/O 04/21/17 04/21/17 04/21/17 04/22/17 04/22/17 04/22/17 07:00 15:00 23:00 07:00 15:00 23:00 Intake Total 191 ml 503 ml 583 ml 458 ml Output Total 675 ml 1000 ml 750 ml 400 ml Balance -484 ml -497 ml -167 ml 58 ml IV Total 0 ml Tube Feeding 131 ml 503 ml 463 ml 338 ml Tube Irrigant 60 ml 120 ml 120 ml Output Urine Total 675 ml 1000 ml 750 ml 400 ml # Bowel Movements 0 0 0 Result Diagram: 04/22/17 0319 04/22/17 0319 Imaging Last Impressions Head CT 04/20/17 0000 Signed Impressions: Service Date/Time: Friday, April 21, 2017 04:57 - CONCLUSION: 1. Stable left thalamic hematoma. No acute hemorrhage is identified Cristopher Frias MD Abdomen X-Ray 04/12/17 1538 Signed Impressions: Service Date/Time: Wednesday, April 12, 2017 17:29 - CONCLUSION: Nonobstructive bowel gas pattern. Suresh Zapata MD Chest X-Ray 04/10/171999 Signed Impressions: Service Date/Time: Monday, April 10, 2017 21:03 - CONCLUSION: No evidence of acute cardiopulmonary disease. Hu Henderson MD Neck CTA 04/10/17 0000 Signed Impressions: Service Date/Time: Monday, April 10, 2017 22:28 - CONCLUSION: The internal carotid arteries are normal bilaterally. No significant atherosclerotic disease is noted. Eliud Du MD Head CTA 04/10/17 0000 Signed Impressions: Service Date/Time: Monday, April 10, 2017 22:50 - CONCLUSION: Mild dilatation of the basilar tip without discrete aneurysm. Some narrowing of the left middle cerebral branch after the bifurcation. Prominent left thalamic hemorrhage. Eliud Du MD Objective Remarks GENERAL: Well-developed patient. Nonverbal SKIN: Warm and dry. HEAD: Normocephalic. NG tube in place. EYES: No scleral icterus. No injection or drainage. NECK: trachea midline. No JVD. CARDIOVASCULAR: Regular rate and rhythm without murmurs, gallops, or rubs. Remains hypotensive RESPIRATORY: Breath sounds equal bilaterally. No accessory muscle use. GASTROINTESTINAL: Abdomen soft, non-tender, nondistended. MUSCULOSKELETAL: No cyanosis, or edema. EXTREMITIES: No clubbing cyanosis or edema, NEURO: Obtunded. A/P Assessment and Plan Intracranial bleed - Thalamic ICH with IVH extension, ICH score 3. No surgical intervention as per Dr. Wang, recommended to keep systolic blood pressure between 120 to 150 mm Hg. neuro checks and follow Neurology specialist recommendations, Lisinopril 40 mg BID. asked for New CT brain, slight interval decrease in the size of the large acute intraparenchymal hemorrhage. stable on her condition. Hypertensive Emergency. - Nicardipine drip wean to DC,Use PRN Labetalol and hydralazine. - Started Norvasc 5 mg daily 04/12. Add metoprolol 25 mg by mouth every 8 hours, hydralazine 50 mg by mouth every 8 hours starting today 04/13/17 - SBP goal less than 150-160, added Lisinopril to try to keep her blood pressure under control Controlled decreasing dosages of Lisinopril to 30 mg BID and following titrate up or down to obtain controlled blood pressures. Electrolyte derangement - replaced and following. DVT GI prophylaxis - Teds SCDs - No pharmacological DVT prophylaxis due to acute ICH - Pepcid PT/OT/Speech Poor Prognosis not able to find relatives yet, discussed with nurse. Nurse will call police for fingerprinting. Discharge Planning Pending improvement, neuro recommendations/clearance. Gina Delatorre MD Apr 22, 2017 09:20
[2017-04-22] MEDS: DOCUSATE SODIUM 50 MG/SENNA 8.6 MG TAB PO SCH ×2 (11:21→21:26)
[2017-04-22] MEDS: HYDROCHLOROTHIAZIDE 25 MG TAB PO SCH (11:21)
[2017-04-22] MEDS: FAMOTIDINE 20 MG/2 ML VIAL IV PUSH SCH ×2 (11:21→21:25)
[2017-04-22] MEDS: SODIUM CHLORIDE 0.9% FLUSH 10 ML FLUSH SCH ×2 (11:22→21:26)
[2017-04-22] MEDS: LISINOPRIL 20 MG TAB PO SCH ×2 (11:22→21:25)
[2017-04-22 19:00] LABS: BACTERIA, URINE MANY /hpf; BILIRUBIN, URINE NEG (NEG); BLOOD, URINE TRACE (NEG); GLUCOSE,URINE NEG (NEG); HYALINE CAST, URINE 16 /lpf (RARE); KETONE, URINE NEG (NEG); MUCUS URINE MANY /lpf (OCC); NITRITE,URINE NEG (NEG); SQUAMOUS EPITHELIAL CELL URINE 2 /hpf (0-5); URINE COLOR YELLOW (YELLW/STRAW); URINE LEUKOCYTE ESTERASE LARGE (NEG); WHITE BLOOD CELL CLUMPS MOD
[2017-04-22] MEDS: LACTULOSE SYRUP 20 GM/30 ML CUP PO PRN (21:24)
[2017-04-22] MEDS: cefTRIAXone INJ 1,000 MG in SODIUM CHLORIDE 0.9% INJ 100 ML IV SCH (23:03)
[2017-04-23] VITALS (12 sets, daily range): BP systolic 104–154; BP diastolic 61–83; PULSE 54–80; RESP 16–20; TEMP 98.2–100; O2SAT 97–99
[2017-04-23] MEDS: CHLORHEXIDINE GLUCONATE 2 % 1 PACK (2 CLOTHS) TOP SCH ×2 (04:00→18:58)
[2017-04-23] MEDS: METOPROLOL TARTRATE 50 MG TAB PO SCH ×3 (06:41→22:17)
[2017-04-23] MEDS: cloNIDine HCL 0.3 MG TAB PO SCH ×3 (06:41→22:17)
[2017-04-23] MEDS: hydrALAZINE HCL 100 MG TAB PO SCH ×3 (06:41→22:17)
[2017-04-23] MEDS: METOCLOPRAMIDE HCL 10 MG/2 ML VIAL IV PUSH SCH ×3 (06:42→22:16)
[2017-04-23] MEDS: SODIUM CHLORIDE 0.9% FLUSH 10 ML FLUSH SCH ×2 (09:00→22:16)
[2017-04-23] MEDS: FAMOTIDINE 20 MG/2 ML VIAL IV PUSH SCH ×2 (09:51→22:15)
[2017-04-23] MEDS: DOCUSATE SODIUM 50 MG/SENNA 8.6 MG TAB PO SCH ×2 (09:51→22:17)
[2017-04-23] MEDS: HYDROCHLOROTHIAZIDE 25 MG TAB PO SCH (09:51)
[2017-04-23] MEDS: LISINOPRIL 20 MG TAB PO SCH ×2 (09:52→22:17)
[2017-04-23 10:55] LABS: AUTOMATED NEUTROPHIL # 5.1 TH/MM3 (1.8-7.7); BASOPHIL # 0.1 TH/MM3 (0-0.2); BASOPHIL % 0.9 % (0.0-2.0); EOSINOPHIL # 0.1 TH/MM3 (0-0.4); EOSINOPHIL % 1.4 % (0.0-4.0); HEMATOCRIT 41.7 % (35.0-46.0); HEMOGLOBIN 13.4 GM/DL (11.6-15.3); LYMPH % 14.5 % (9.0-44.0); MEAN CELL VOLUME 89.3 FL (80.0-100.0); MEAN CORPUSCULAR HEMOGLOBIN 28.7 PG (27.0-34.0); MEAN CORPUSCULAR HGB CONC 32.2 % (32.0-36.0); MEAN PLATELET VOLUME 10.2 FL (7.0-11.0); MONO % 12.7 % (0.0-8.0); MONOCYTE # 0.9 TH/MM3 (0-0.9); NEUT % 70.5 % (16.0-70.0); PLATELET COUNT 271 TH/MM3 (150-450); RED BLOOD COUNT 4.67 MIL/MM3 (4.00-5.30); WHITE BLOOD COUNT 7.2 TH/MM3 (4.0-11.0)
--- NOTE | 2017-04-23 11:33 | HHI.PR ---
Subjective Remarks Patient is opening eyes, doesn't follow commands. Responsive to obnoxious stimuli opening eyes. No fevers overnight. She was noted with temp of 101 yesterday. Objective Vitals Vital Signs Date Time Temp Pulse Resp B/P Pulse Ox O2 Delivery O2 Flow Rate FiO2 04/23/17 10:00 65 04/23/17 08:00 63 04/23/17 06:00 64 04/23/17 04:00 98.8 59 16 154/83 99 04/23/17 04:00 59 04/23/17 02:00 57 04/23/17 00:00 54 04/23/17 00:00 99.4 54 18 106/61 97 04/22/17 22:00 74 04/22/17 20:00 66 04/22/17 20:00 99.1 66 16 160/85 99 04/22/17 18:00 64 04/22/17 16:00 101.0 60 18 142/90 100 04/22/17 16:00 62 04/22/17 14:00 62 04/22/17 12:00 100.0 57 16 160/88 100 04/22/17 12:00 62 I/O 04/22/17 04/22/17 04/22/17 04/23/17 04/23/17 04/23/17 07:00 15:00 23:00 07:00 15:00 23:00 Intake Total 458 ml 538 ml 456 ml 731 ml Output Total 400 ml 650 ml 600 ml 600 ml Balance 58 ml -112 ml -144 ml 131 ml IV Total 107 ml Tube Feeding 338 ml 538 ml 336 ml 504 ml Tube Irrigant 120 ml Other 120 ml 120 ml Output Urine Total 400 ml 650 ml 600 ml 600 ml # Bowel Movements 0 0 0 Result Diagram: 04/23/17 1016 04/22/17 0319 Imaging Last Impressions Head CT 04/20/17 0000 Signed Impressions: Service Date/Time: Friday, April 21, 2017 04:57 - CONCLUSION: 1. Stable left thalamic hematoma. No acute hemorrhage is identified Cristopher Frias MD Abdomen X-Ray 04/12/17 1538 Signed Impressions: Service Date/Time: Wednesday, April 12, 2017 17:29 - CONCLUSION: Nonobstructive bowel gas pattern. Suresh Zapata MD Chest X-Ray 04/10/171999 Signed Impressions: Service Date/Time: Monday, April 10, 2017 21:03 - CONCLUSION: No evidence of acute cardiopulmonary disease. Hu Henderson MD Neck CTA 04/10/17 Signed Impressions: Service Date/Time: Monday, April 10, 2017 22:28 - CONCLUSION: The internal carotid arteries are normal bilaterally. No significant atherosclerotic disease is noted. Eliud Du MD Head CTA 04/10/17 Signed Impressions: Service Date/Time: Monday, April 10, 2017 22:50 - CONCLUSION: Mild dilatation of the basilar tip without discrete aneurysm. Some narrowing of the left middle cerebral branch after the bifurcation. Prominent left thalamic hemorrhage. Eliud Du MD Objective Remarks GENERAL: Well-developed patient. Nonverbal SKIN: Warm and dry. HEAD: Normocephalic. NG tube in place. EYES: No scleral icterus. No injection or drainage. NECK: trachea midline. No JVD. CARDIOVASCULAR: Regular rate and rhythm without murmurs, gallops, or rubs. Remains hypotensive RESPIRATORY: Breath sounds equal bilaterally. No accessory muscle use. GASTROINTESTINAL: Abdomen soft, non-tender, nondistended. MUSCULOSKELETAL: No cyanosis, or edema. EXTREMITIES: No clubbing cyanosis or edema, NEURO: Obtunded. A/P Assessment and Plan Intracranial bleed - Thalamic ICH with IVH extension, ICH score 3. No surgical intervention as per Dr. Wang, recommended to keep systolic blood pressure between 120 to 150 mm Hg. neuro checks and follow Neurology specialist recommendations, Lisinopril 40 mg BID. asked for New CT brain, slight interval decrease in the size of the large acute intraparenchymal hemorrhage. stable on her condition. UTI with E Coli and Klebsiela. Noted with fevers 101. No leukocytosis or tachycardia. Bood cx pending. Patient with UTI . On Rocephin IV Hypertensive Emergency. - Nicardipine drip wean to DC,Use PRN Labetalol and hydralazine. -Started Norvasc 5 mg daily 04/12. Add metoprolol 25 mg by mouth every 8 hours, hydralazine 50 mg by mouth every 8 hours starting today 04/13/17 - SBP goal less than 150-160, added Lisinopril to try to keep her blood pressure under control Controlled decreasing dosages of Lisinopril to 30 mg BID and following titrate up or down to obtain controlled blood pressures. Electrolyte derangement - replaced and following. DVT GI prophylaxis - Teds SCDs - No pharmacological DVT prophylaxis due to acute ICH - Pepcid PT/OT/Speech Poor Prognosis not able to find relatives yet, discussed with nurse. Nurse will call police for fingerprinting. Discharge Planning Pending improvement, neuro recommendations/clearance. Discussed with the nurse. Transfer to med/surg floor Gina Delatorre MD Apr 23, 2017 11:32
[2017-04-23 11:46] LABS: BICARBONATE 30.9 MEQ/L (21.0-32.0); CALCIUM 8.7 MG/DL (8.5-10.1); CREATININE 0.61 MG/DL (0.50-1.00); MAGNESIUM 2.2 MG/DL (1.5-2.5)
[2017-04-23] MEDS: cefTRIAXone INJ 1,000 MG in SODIUM CHLORIDE 0.9% INJ 100 ML IV SCH (22:16)
[2017-04-24] VITALS (8 sets, daily range): BP systolic 102–138; BP diastolic 61–77; PULSE 54–92; RESP 14–20; TEMP 97.4–99.6; O2SAT 94–99
[2017-04-24] MEDS: METOPROLOL TARTRATE 50 MG TAB PO SCH ×2 (05:27→22:57)
[2017-04-24] MEDS: cloNIDine HCL 0.3 MG TAB PO SCH ×3 (05:27→22:59)
[2017-04-24] MEDS: hydrALAZINE HCL 100 MG TAB PO SCH ×3 (05:27→22:58)
[2017-04-24] MEDS: METOCLOPRAMIDE HCL 10 MG/2 ML VIAL IV PUSH SCH ×3 (05:28→23:12)
[2017-04-24] MEDS: LACTULOSE SYRUP 20 GM/30 ML CUP PO PRN (08:44)
[2017-04-24] MEDS: FAMOTIDINE 20 MG/2 ML VIAL IV PUSH SCH ×2 (08:44→23:10)
[2017-04-24] MEDS: DOCUSATE SODIUM 50 MG/SENNA 8.6 MG TAB PO SCH ×2 (08:44→23:19)
[2017-04-24] MEDS: LISINOPRIL 20 MG TAB PO SCH ×2 (08:44→22:58)
[2017-04-24] MEDS: SODIUM CHLORIDE 0.9% FLUSH 10 ML FLUSH SCH ×2 (08:44→23:11)
[2017-04-24] MEDS: HYDROCHLOROTHIAZIDE 25 MG TAB PO SCH (08:44)
--- NOTE | 2017-04-24 09:26 | HHI.PR ---
Subjective Remarks Opens eyes, doesn't follow commands. Per nurse she was squeezing left hand at times during the day. BP noted into a lower side will titrate BP meds. Monitor BP Objective Vitals Vital Signs Date Time Temp Pulse Resp B/P Pulse Ox O2 Delivery O2 Flow Rate FiO2 04/24/17 08:00 98.4 54 14 102/73 99 04/24/17 06:00 54 04/24/17 04:00 65 04/24/17 04:00 99.6 54 18 113/66 98 04/24/17 02:00 69 04/24/17 00:00 63 04/24/17 00:00 98.3 54 18 109/61 97 04/23/17 22:00 63 04/23/17 20:00 100.0 61 18 132/78 97 04/23/17 20:00 61 04/23/17 18:00 61 04/23/17 16:00 62 04/23/17 16:00 98.8 58 18 104/67 97 04/23/17 14:00 56 04/23/17 12:00 80 04/23/17 12:00 98.8 60 20 152/78 97 04/23/17 10:00 65 I/O 04/23/17 04/23/17 04/23/17 04/24/17 04/24/17 04/24/17 07:00 15:00 23:00 07:00 15:00 23:00 Intake Total 731 ml 490 ml 596 ml 402 ml Output Total 600 ml 850 ml 800 ml 350 ml Balance 131 ml -360 ml -204 ml 52 ml IV Total 107 ml 100 ml 0 ml Tube Feeding 504 ml 490 ml 436 ml 342 ml Other 120 ml 60 ml 60 ml Output Urine Total 600 ml 850 ml 800 ml 350 ml # Bowel Movements 0 0 0 Result Diagram: 04/23/17 1016 04/23/17 1016 Imaging Last Impressions Head CT 04/20/17 0000 Signed Impressions: Service Date/Time: Friday, April 21, 2017 04:57 - CONCLUSION: 1. Stable left thalamic hematoma. No acute hemorrhage is identified Cristopher Frias MD Abdomen X-Ray 04/12/17 1538 Signed Impressions: Service Date/Time: Wednesday, April 12, 2017 17:29 - CONCLUSION: Nonobstructive bowel gas pattern. Suresh Zapata MD Chest X-Ray 04/10/171999 Signed Impressions: Service Date/Time: Monday, April 10, 2017 21:03 - CONCLUSION: No evidence of acute cardiopulmonary disease. Hu Henderson MD Neck CTA 04/10/17 0000 Signed Impressions: Service Date/Time: Monday, April 10, 2017 22:28 - CONCLUSION: The internal carotid arteries are normal bilaterally. No significant atherosclerotic disease is noted. Eliud Du MD Head CTA 04/10/17 Signed Impressions: Service Date/Time: Monday, April 10, 2017 22:50 - CONCLUSION: Mild dilatation of the basilar tip without discrete aneurysm. Some narrowing of the left middle cerebral branch after the bifurcation. Prominent left thalamic hemorrhage. Eliud Du MD Objective Remarks GENERAL: Well-developed patient. Nonverbal SKIN: Warm and dry. HEAD: Normocephalic. NG tube in place. EYES: No scleral icterus. No injection or drainage. NECK: trachea midline. No JVD. CARDIOVASCULAR: Regular rate and rhythm without murmurs, gallops, or rubs. Remains hypotensive RESPIRATORY: Breath sounds equal bilaterally. No accessory muscle use. GASTROINTESTINAL: Abdomen soft, non-tender, nondistended. MUSCULOSKELETAL: No cyanosis, or edema. EXTREMITIES: No clubbing cyanosis or edema, NEURO: Obtunded. A/P Assessment and Plan Intracranial bleed - Thalamic ICH with IVH extension, ICH score 3. No surgical intervention as per Dr. Wang, recommended to keep systolic blood pressure between 120 to 150 mm Hg. neuro checks and follow Neurology specialist recommendations, Lisinopril 40 mg BID. asked for New CT brain, slight interval decrease in the size of the large acute intraparenchymal hemorrhage. stable on her condition. UTI with E Coli and Klebsiela. Noted with fevers 101. No leukocytosis or tachycardia. Bood cx pending. Patient with UTI . On Rocephin IV Hypertensive Emergency. - Nicardipine drip wean to DC,Use PRN Labetalol and hydralazine. -Started Norvasc 5 mg daily 04/12. Add metoprolol 25 mg by mouth every 8 hours, hydralazine 50 mg by mouth every 8 hours starting today 04/13/17 - SBP goal less than 150-160, added Lisinopril to try to keep her blood pressure under control Controlled decreasing dosages of Lisinopril to 30 mg BID and following titrate up or down to obtain controlled blood pressures. Electrolyte derangement - replaced and following. DVT GI prophylaxis - Teds SCDs - No pharmacological DVT prophylaxis due to acute ICH - Pepcid PT/OT/Speech Poor Prognosis not able to find relatives yet, discussed with nurse. Nurse will call police for fingerprinting. Discharge Planning Pending improvement, neuro recommendations/clearance. Discussed with the nurse. Transfer to med/surg floor Gina Delatorre MD Apr 24, 2017 09:25
[2017-04-24] MEDS: SODIUM CHLORIDE 0.9% FLUSH 10 ML FLUSH PRN (13:13)
[2017-04-24] MEDS: cefTRIAXone INJ 1,000 MG in SODIUM CHLORIDE 0.9% INJ 100 ML IV SCH (23:10)
[2017-04-25] VITALS (7 sets, daily range): BP systolic 108–140; BP diastolic 59–85; PULSE 61–75; RESP 17–21; TEMP 97.6–99; O2SAT 96–99
[2017-04-25] MEDS: CHLORHEXIDINE GLUCONATE 2 % 1 PACK (2 CLOTHS) TOP SCH (04:00)
[2017-04-25] MEDS: hydrALAZINE HCL 100 MG TAB PO SCH ×3 (05:47→21:30)
[2017-04-25] MEDS: cloNIDine HCL 0.3 MG TAB PO SCH ×3 (05:47→21:30)
[2017-04-25] MEDS: METOCLOPRAMIDE HCL 10 MG/2 ML VIAL IV PUSH SCH ×3 (05:48→21:31)
[2017-04-25] MEDS: DOCUSATE SODIUM 50 MG/SENNA 8.6 MG TAB PO SCH ×2 (08:49→21:30)
[2017-04-25] MEDS: LISINOPRIL 20 MG TAB PO SCH (08:50)
[2017-04-25] MEDS: METOPROLOL TARTRATE 50 MG TAB PO SCH ×2 (08:50→21:30)
[2017-04-25] MEDS: HYDROCHLOROTHIAZIDE 25 MG TAB PO SCH (08:50)
[2017-04-25] MEDS: FAMOTIDINE 20 MG/2 ML VIAL IV PUSH SCH ×2 (08:50→21:30)
[2017-04-25] MEDS: SODIUM CHLORIDE 0.9% FLUSH 10 ML FLUSH SCH ×2 (08:51→21:32)
--- NOTE | 2017-04-25 16:43 | HHI.PR ---
Review/Management Diagnosis left thalamic hemorrhage with intraventricular extension, Plan continue BP control recheck CT tomorrow Diagnosis/Plan: Subjective Subjective Comments No acute events reported Active Medications Current Medications Medications (Trade) Dose Ordered Sig/Reymundo Route Start Time Stop Time Status Last Admin (NS Flush) 2 ml UNSCH PRN .XX 04/10/17 22:00 04/24/17 13:13 (NS Flush) 2 ml BID .XX 04/11/17 09:00 04/25/17 08:51 (Tylenol) 650 mg Q6H PRN PO 04/10/17 22:00 04/20/17 09:19 (Morphine Inj) 2 mg Q2H PRN IV 04/10/17 22:00 04/18/17 21:05 (Pepcid Inj) 20 mg Q12HR IV PUSH 04/11/17 09:00 04/25/17 08:50 (Zofran Inj) 4 mg Q6H PRN IV 04/10/17 22:00 (Reglan Inj) 10 mg Q6H PRN IV 04/10/17 22:00 (Compazine Supp) 25 mg Q12H PRN RECTAL 04/10/17 22:00 Miscellaneous Information 1 Q361D XX 04/10/17 22:00 04/10/17 22:00 (Chlorhexidine 2% Cloth) Taper DAILY@04 TOP 04/11/17 04:00 04/07/18 03:59 04/22/17 04:00 (Chlorhexidine 2% Cloth) 3 pack UNSCH PRN TOP 04/10/17 22:00 (Evelyn-Colace) 1 tab BID PO 04/11/17 09:00 04/25/17 08:49 (Milk Of Magnesia Liq) 30 ml Q12H PRN PO 04/10/17 22:00 (Senokot) 17.2 mg Q12H PRN PO 04/10/17 22:00 (Dulcolax Supp) 10 mg DAILY PRN RECTAL 04/10/17 22:00 (Lactulose Liq) 30 ml DAILY PRN PO 04/10/17 22:00 04/24/17 08:44 (Trandate Inj) 20 mg Q4H PRN IV PUSH 04/12/17 08:15 04/17/17 02:24 (Apresoline Inj) 20 mg Q4H PRN IV PUSH 04/12/17 08:15 04/16/17 17:38 (Reglan Inj) 5 mg Q8HR IV PUSH 04/12/17 16:00 04/25/17 13:17 (Catapres) 0.3 mg Q8HR PO 04/14/17 22:00 04/25/17 13:17 (Norvasc) 10 mg DAILY PO 04/14/17 19:45 04/25/17 08:50 (Vasotec Inj) 1.25 mg Q6H PRN IV PUSH 04/15/17 01:15 04/18/17 18:47 (Nitroglycerin 2% Oint) 2 inch Q6HR PRN TOPICAL 04/15/17 06:00 04/16/17 12:34 (Apresoline) 100 mg Q8HR PO 04/15/17 14:00 04/25/17 13:17 (Hydrodiuril) 50 mg DAILY PO 04/19/17 09:00 04/25/17 08:50 (Prinivil) 30 mg BID PO 04/20/17 21:00 04/25/17 08:50 Miscellaneous 1 ea 1 ea UNSCH PRN OTHER 04/20/17 17:15 (Rocephin Inj/NS Inj) 100 ml @ 200 mls/hr HS IV 04/22/17 21:30 04/24/17 23:10 (Lopressor) 50 mg BID PO 04/24/17 21:00 04/25/17 08:50 Allergies Allergies Coded Allergies UNOBTAINABLE (Unverified04/10/17) Exam I&O / VS 04/24/17 04/24/17 04/25/17 15:00 23:00 07:00 Intake Total 694 ml Output Total 550 ml 700 ml Balance 694 ml -550 ml -700 ml TPN/PPN 414 ml Other 280 ml Output Urine Total 550 ml 700 ml # Bowel Movements 1 1 Vital Signs Date Time Temp Pulse Resp B/P Pulse Ox O2 Delivery O2 Flow Rate FiO2 04/25/17 16:17 97.8 61 17 108/59 97 04/25/17 12:20 97.6 63 17 121/68 99 04/25/17 08:16 97.8 69 17 118/73 99 04/25/17 07:22 70 04/25/17 04:20 98.6 75 21 130/85 97 04/25/17 00:06 99.0 71 21 140/79 96 04/24/17 20:00 97.4 92 17 128/77 94 Exam Comments lethargic, does not follow commands Pupils 2 mm symmetric and reactive with left gaze preference [employer] voluntarily left but not right Objective Micro and Labs Date/Time Procedure Status Source Growth 04/22/17 19:38 Aerobic Blood Culture - Preliminary Resulted Blood Peripheral NO GROWTH IN 3 DAYS 04/22/17 19:38 Anaerobic Blood Culture - Preliminary Resulted Blood Peripheral NO GROWTH IN 3 DAYS 04/22/17 17:45 Urine Culture - Final Complete Urine Catheterized Urine Escherichia Coli Jonathan Ravi PhD Apr 25, 2017 16:43
--- NOTE | 2017-04-25 18:05 | HHI.PR ---
Subjective Remarks Follow up for intracranial hemorrhage. Patient is largely unresponsive. No response to verbal or physical commands. Afebrile. Objective Vitals Vital Signs Date Time Temp Pulse Resp B/P Pulse Ox O2 Delivery O2 Flow Rate FiO2 04/25/17 16:17 97.8 61 17 108/59 97 04/25/17 12:20 97.6 63 17 121/68 99 04/25/17 08:16 97.8 69 17 118/73 99 04/25/17 07:22 70 04/25/17 04:20 98.6 75 21 130/85 97 04/25/17 00:06 99.0 71 21 140/79 96 04/24/17 20:00 97.4 92 17 128/77 94 I/O 04/24/17 04/24/17 04/24/17 04/25/17 04/25/17 04/25/17 07:00 15:00 23:00 07:00 15:00 23:00 Intake Total 402 ml 694 ml 476 ml Output Total 350 ml 550 ml 700 ml 450 ml Balance 52 ml 694 ml -550 ml -700 ml 26 ml IV Total 0 ml Tube Feeding 342 ml 416 ml TPN/PPN 414 ml Tube Irrigant 60 ml Other 60 ml 280 ml Output Urine Total 350 ml 550 ml 700 ml 450 ml # Bowel Movements 0 1 1 0 Result Diagram: 04/23/17 1016 04/23/17 1016 Imaging Last Impressions Head CT 04/20/17 0000 Signed Impressions: Service Date/Time: Friday, April 21, 2017 04:57 - CONCLUSION: 1. Stable left thalamic hematoma. No acute hemorrhage is identified Cristopher Frias MD Abdomen X-Ray 04/12/17 1538 Signed Impressions: Service Date/Time: Wednesday, April 12, 2017 17:29 - CONCLUSION: Nonobstructive bowel gas pattern. Suresh Zapata MD Chest X-Ray 04/10/17 2000 Signed Impressions: Service Date/Time: Monday, April 10, 2017 21:03 - CONCLUSION: No evidence of acute cardiopulmonary disease. Hu Henderson MD Neck CTA 04/10/17 0000 Signed Impressions: Service Date/Time: Monday, April 10, 2017 22:28 - CONCLUSION: The internal carotid arteries are normal bilaterally. No significant atherosclerotic disease is noted. Eliud Du MD Head CTA 04/10/17 0000 Signed Impressions: Service Date/Time: Monday, April 10, 2017 22:50 - CONCLUSION: Mild dilatation of the basilar tip without discrete aneurysm. Some narrowing of the left middle cerebral branch after the bifurcation. Prominent left thalamic hemorrhage. Eliud Du MD Objective Remarks GENERAL: Unresponsive. SKIN: Warm and dry. HEAD: Normocephalic. NG tube in place. EYES: No scleral icterus. No injection or drainage. NECK: Supple, trachea midline. No JVD or lymphadenopathy. CARDIOVASCULAR: Regular rate and rhythm without murmurs, gallops, or rubs. RESPIRATORY: Breath sounds equal bilaterally. No accessory muscle use. GASTROINTESTINAL: Abdomen soft, non-tender, nondistended. MUSCULOSKELETAL: No cyanosis, or edema. Procedures None. A/P Assessment and Plan Patient is a middle-aged female with unknown identity who was brought to the hospital on 04/10/2017 due to altered mental status, right sided weakness with a left-jacobs gaze. Upon presentation, she was found to have BP around 250/[address] elevation in V1-V3 and T wave inversions in V5 , V6. Cardene drip was initiated and a CT head was done with suspicion of ICH. Cardiology attributed EKG changes to probable ICH. CT head indeed confirmed ICH with intraventricular extension. 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 - No surgical intervention as per Dr. Wang, recommended to keep systolic BP around 120 - 150. - Neurology following. Repeat CT brain ordered. UTI with E Coli and Klebsiela - Continue Ceftriaxone 1g QHS. Hypertension - Currently on Amlodipine 10mg Qday, Clonidine 0.3mg Q8hrs, Hydralazine 100mg PO Q8hrs, HCTZ 50mg Qday - Also on Lisinopril 30mg BID, Metoprolol 50mg BID. - BP is currently around 110 systolic. - Will start to decrease some of the blood pressure medications. - We will discontinue HCTZ and decrease lisinopril to 20mg Qday. Full code. JELANI bilateral. Arya Ambrosio DO Apr 25, 2017 18:05
--- NOTE | 2017-04-25 18:37 | RADRPT ---
EXAM DATE/TIME: 04/25/2017 18:02 [place] COMPARISON: No previous studies available for comparison. INDICATIONS : Evaluate for intracranial hemorrhage, right side weakness and left jaocbs gaze. RADIATION DOSE: 56.35 CTDIvol (mGy) MEDICAL HISTORY : None SURGICAL HISTORY : None. ENCOUNTER: Initial ACUITY: 1 day PAIN SCALE: Non-responsive LOCATION: Bilateral cranial TECHNIQUE: Multiple contiguous axial images were obtained of the head. Using automated exposure control and adj ustment of the mA and/or kV according to patient size, radiation dose was kept as low as reasonably a chievable to obtain optimal diagnostic quality images. FINDINGS: Again seen is a left thalamic hematoma with slightly less acute hemorrhage compared with April 21. No new hemorrhage. Minimal localized mass effect. Chronic white matter ischemic changes. No hydrocephalu s. CONCLUSION: 1. Evolving left thalamic hematoma. No new hemorrhage. Adi Quarles MD on April 25, 2017 at 18:33 Board Certified Radiologist. This report was verified electronically.
[2017-04-25] MEDS: cefTRIAXone INJ 1,000 MG in SODIUM CHLORIDE 0.9% INJ 100 ML IV SCH (21:31)
[2017-04-26] VITALS (7 sets, daily range): BP systolic 105–142; BP diastolic 58–84; PULSE 56–91; RESP 16–20; TEMP 96–98.5; O2SAT 96–99
[2017-04-26] MEDS: CHLORHEXIDINE GLUCONATE 2 % 1 PACK (2 CLOTHS) TOP SCH (01:59)
[2017-04-26] MEDS: hydrALAZINE HCL 100 MG TAB PO SCH ×2 (05:55→13:17)
[2017-04-26] MEDS: METOCLOPRAMIDE HCL 10 MG/2 ML VIAL IV PUSH SCH ×3 (05:55→22:33)
[2017-04-26] MEDS: cloNIDine HCL 0.3 MG TAB PO SCH ×2 (05:55→13:17)
[2017-04-26] MEDS: METOPROLOL TARTRATE 50 MG TAB PO SCH ×2 (08:02→22:33)
[2017-04-26] MEDS: FAMOTIDINE 20 MG/2 ML VIAL IV PUSH SCH ×2 (08:03→22:33)
[2017-04-26] MEDS: SODIUM CHLORIDE 0.9% FLUSH 10 ML FLUSH SCH ×2 (08:03→22:32)
[2017-04-26] MEDS: LISINOPRIL 20 MG TAB PO SCH (08:03)
[2017-04-26] MEDS: DOCUSATE SODIUM 50 MG/SENNA 8.6 MG TAB PO SCH ×2 (08:03→22:33)
[2017-04-26] MEDS: ACETAMINOPHEN 325 MG TAB PO PRN (13:46)
--- NOTE | 2017-04-26 14:39 | HHI.PR ---
Subjective Remarks Follow up for intracranial hemorrhage. Patient remains unresponsive. She does recur her upper eyelids on verbal commands. Per nursing staff she did have some grimace when they placed IV access. Objective Vitals Vital Signs Date Time Temp Pulse Resp B/P Pulse Ox O2 Delivery O2 Flow Rate FiO2 04/26/17 11:30 97.6 59 16 109/70 98 04/26/17 07:55 96.0 67 16 115/65 97 04/26/17 05:32 98.4 61 16 116/69 96 04/26/17 00:37 98.5 56 17 105/58 98 04/25/17 20:00 98.2 66 18 115/71 98 04/25/17 16:17 97.8 61 17 108/59 97 I/O 04/25/17 04/25/17 04/25/17 04/26/17 04/26/17 04/26/17 07:00 15:00 23:00 07:00 15:00 23:00 Intake Total 476 ml 1306 ml 982 ml Output Total 700 ml 450 ml 500 ml Balance -700 ml 26 ml -500 ml 1306 ml 982 ml IV Total 246 ml Tube Feeding 416 ml 660 ml 932 ml Tube Irrigant 60 ml 400 ml 50 ml Output Urine Total 700 ml 450 ml 500 ml # Voids 4 2 3 # Bowel Movements 1 0 1 0 1 Result Diagram: 04/23/17 1016 04/23/17 1016 Imaging Last Impressions Head CT 04/25/17 0000 Signed Impressions: Service Date/Time: Tuesday, April 25, 2017 18:02 - CONCLUSION: 1. Evolving left thalamic hematoma. No new hemorrhage. Adi Quarles MD Abdomen X-Ray 04/12/17 1538 Signed Impressions: Service Date/Time: Wednesday, April 12, 2017 17:29 - CONCLUSION: Nonobstructive bowel gas pattern. Suresh Zapata MD Chest X-Ray 04/10/17 2000 Signed Impressions: Service Date/Time: Monday, April 10, 2017 21:03 - CONCLUSION: No evidence of acute cardiopulmonary disease. Hu Henderson MD Neck CTA 04/10/17 0000 Signed Impressions: Service Date/Time: Monday, April 10, 2017 22:28 - CONCLUSION: The internal carotid arteries are normal bilaterally. No significant atherosclerotic disease is noted. Eliud Du MD Head CTA 04/10/17 0000 Signed Impressions: Service Date/Time: Monday, April 10, 2017 22:50 - CONCLUSION: Mild dilatation of the basilar tip without discrete aneurysm. Some narrowing of the left middle cerebral branch after the bifurcation. Prominent left thalamic hemorrhage. Eliud Du MD Objective Remarks GENERAL: Unresponsive. SKIN: Warm and dry. HEAD: Normocephalic. NG tube in place. EYES: No scleral icterus. No injection or drainage. NECK: Supple, trachea midline. No JVD or lymphadenopathy. CARDIOVASCULAR: Regular rate and rhythm without murmurs, gallops, or rubs. RESPIRATORY: Breath sounds equal bilaterally. No accessory muscle use. GASTROINTESTINAL: Abdomen soft, non-tender, nondistended. MUSCULOSKELETAL: No cyanosis, or edema. Procedures None. A/P Assessment and Plan Patient is a middle-aged female with unknown identity who was brought to the hospital on 04/10/2017 due to altered mental status, right sided weakness with a left-jacobs gaze. Upon presentation, she was found to have BP around 250/[address] elevation in V1-V3 and T wave inversions in V5 , V6. Cardene drip was initiated and a CT head was done with suspicion of ICH. Cardiology attributed EKG changes to probable ICH. CT head indeed confirmed ICH with intraventricular extension. 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 - No surgical intervention as per Dr. aWng, recommended to keep systolic BP around 120 - 150. Currently BP 109/70. - Neurology following. Repeat CT brain ordered. UTI with E Coli and Klebsiela - Continue Ceftriaxone 1g QHS. Hypertension - BP is on the lower side. 109/70. - Currently on Amlodipine 10mg Qday, Clonidine 0.3mg Q8hrs, Hydralazine 100mg PO Q8hrs, HCTZ 50mg Qday, Metoprolol 50mg BID. - Discontinued HCTZ and decrease lisinopril to 20mg Qday. - Will decrease Clonidine from 0.3mg Q8hrs to 0.2mg Q8hrs. Will decrease Hydralazine from 100mg Q8hrs to 50mg Q8hrs. Full code. JELANI bilateral. Arya Ambrosio DO Apr 26, 2017 2:39 pm
[2017-04-26] MEDS: hydrALAZINE HCL 50 MG TAB PO SCH (22:00)
[2017-04-26] MEDS: cloNIDine HCL 0.2 MG TAB PO SCH (22:00)
[2017-04-26] MEDS: cefTRIAXone INJ 1,000 MG in SODIUM CHLORIDE 0.9% INJ 100 ML IV SCH (22:32)
[2017-04-27] VITALS: BP 132/79; PULSE 67; RESP 20; TEMP 97.3; O2SAT 97
[2017-04-27] MEDS: CHLORHEXIDINE GLUCONATE 2 % 1 PACK (2 CLOTHS) TOP SCH (03:27)
[2017-04-27 04:00] VITALS: BP 147/74; PULSE 71; RESP 21; TEMP 99; O2SAT 97
[2017-04-27] MEDS: hydrALAZINE HCL 50 MG TAB PO SCH ×3 (05:01→21:07)
[2017-04-27] MEDS: METOCLOPRAMIDE HCL 10 MG/2 ML VIAL IV PUSH SCH ×3 (05:01→21:07)
[2017-04-27] MEDS: cloNIDine HCL 0.2 MG TAB PO SCH ×3 (05:01→21:06)
[2017-04-27 08:10] VITALS: BP 172/96; PULSE 82; RESP 20; TEMP 98.7; O2SAT 96
[2017-04-27] MEDS: SODIUM CHLORIDE 0.9% FLUSH 10 ML FLUSH SCH ×2 (09:00→21:08)
[2017-04-27] MEDS: FAMOTIDINE 20 MG/2 ML VIAL IV PUSH SCH ×2 (09:48→21:06)
[2017-04-27] MEDS: LISINOPRIL 20 MG TAB PO SCH (09:52)
[2017-04-27] MEDS: METOPROLOL TARTRATE 50 MG TAB PO SCH ×2 (10:10→21:06)
[2017-04-27] MEDS: DOCUSATE SODIUM 50 MG/SENNA 8.6 MG TAB PO SCH ×2 (10:10→21:00)
[2017-04-27 12:33] VITALS: BP 166/103; PULSE 67; RESP 20; TEMP 97.2; O2SAT 95
--- NOTE | 2017-04-27 15:32 | HHI.PR ---
Subjective Remarks Written by Veena Calvillo, acting as scribe for Dr. Ambrosio on 04/27/17 at 1345. Follow up for intracranial hemorrhage. Patient seen and examined. Obtunded. Eyelids open slightly to stimulation and voice. No acute changes overnight. Afebrile. Positive BM. Objective Vitals Vital Signs Date Time Temp Pulse Resp B/P Pulse Ox O2 Delivery O2 Flow Rate FiO2 04/27/17 12:33 97.2 67 20 166/103 95 04/27/17 08:10 98.7 82 20 172/96 96 04/27/17 04:00 99.0 71 21 147/74 97 04/27/17 00:00 97.3 67 20 132/79 97 04/26/17 22:31 91 136/84 04/26/17 20:00 98.3 77 20 142/80 97 04/26/17 15:50 96.8 64 17 115/70 99 I/O 04/26/17 04/26/17 04/26/17 04/27/17 04/27/17 04/27/17 07:00 15:00 23:00 07:00 15:00 23:00 Intake Total 1306 ml 1494 ml 920 ml Balance 1306 ml 1494 ml 920 ml IV Total 246 ml 100 ml Tube Feeding 660 ml 1384 ml 720 ml Tube Irrigant 400 ml 110 ml Other 100 ml # Voids 2 7 1 1 4 # Bowel Movements 0 3 1 1 3 Result Diagram: 04/23/17 1016 04/23/17 1016 Imaging Last Impressions Head CT 04/25/17 0000 Signed Impressions: Service Date/Time: Tuesday, April 25, 2017 18:02 - CONCLUSION: 1. Evolving left thalamic hematoma. No new hemorrhage. Adi Quarles MD Abdomen X-Ray 04/12/17 1538 Signed Impressions: Service Date/Time: Wednesday, April 12, 2017 17:29 - CONCLUSION: Nonobstructive bowel gas pattern. Suresh Zapata MD Chest X-Ray 04/10/17 2000 Signed Impressions: Service Date/Time: Monday, April 10, 2017 21:03 - CONCLUSION: No evidence of acute cardiopulmonary disease. Hu Henderson MD Neck CTA 04/10/17 0000 Signed Impressions: Service Date/Time: Monday, April 10, 2017 22:28 - CONCLUSION: The internal carotid arteries are normal bilaterally. No significant atherosclerotic disease is noted. Eliud Du MD Head CTA 04/10/17 0000 Signed Impressions: Service Date/Time: Monday, April 10, 2017 22:50 - CONCLUSION: Mild dilatation of the basilar tip without discrete aneurysm. Some narrowing of the left middle cerebral branch after the bifurcation. Prominent left thalamic hemorrhage. Eliud Du MD Objective Remarks GENERAL: Well-developed patient. Nonverbal, obtunded. NAD. SKIN: Warm and dry. HEAD: Normocephalic. NG tube in place, TF continued. EYES: No scleral icterus. No injection or drainage. NECK: trachea midline. No JVD. CARDIOVASCULAR: Regular rate and rhythm. No murmur appreciated. RESPIRATORY: Breath sounds equal bilaterally. No accessory muscle use. GASTROINTESTINAL: Abdomen soft, non-tender, nondistended. MUSCULOSKELETAL: No cyanosis, or edema. NEURO: Obtunded. Procedures None. A/P Assessment and Plan Patient is a middle-aged female with unknown identity who was brought to the hospital on 04/10/2017 due to altered mental status, right sided weakness with a left-jacobs gaze. Upon presentation, she was found to have BP around 250/[address] elevation in V1-V3 and T wave inversions in V5 , V6. Cardene drip was initiated and a CT head was done with suspicion of ICH. Cardiology attributed EKG changes to probable ICH. CT head indeed confirmed ICH with intraventricular extension. 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 - No surgical intervention as per Dr. Wang, recommended to keep systolic BP around 120 - 150. - BP currently in the 150-160 range. - Neurology following, appreciate input. CT head reviewed showing evolving left thalamic hematoma, no new hemorrhage. UTI with E Coli and Klebsiela - Continue Ceftriaxone 1g QHS. Hypertension, currently elevated 166/103. - Currently on Amlodipine 10mg Qday, Clonidine 0.2mg Q8hrs, Hydralazine 50mg PO Q8hrs, Metoprolol 50mg BID. - Increase lisinopril 20mg to 40mg Qday. - Will change Hydralazine from 50mg Q8hrs to 100mg Q8hrs. Full code. JELANI bilateral. This note was transcribed by ILENE Mann. I, Dr. Pavan Ambrosio personally performed the history, physical exam, and medical decision making; and confirmed the accuracy of the information in the transcribed note. Authenticated by Dr. Pavan Ambrosio on 04/28/17 at 00:22. Veena Calvillo Apr 27, 2017 15:32 Arya Ambrosio DO Apr 28, 2017 00:21
[2017-04-27 16:42] VITALS: BP 165/86; PULSE 82; RESP 20; TEMP 98.8; O2SAT 99
[2017-04-27] MEDS: ENALAPRILAT 1.25 MG/ML VIAL IV PUSH PRN (17:29)
--- NOTE | 2017-04-27 18:09 | HHI.PR ---
Review/Management Diagnosis left thalamic hemorrhage with intraventricular extension,--stable Plan continue BP control Diagnosis/Plan: Subjective Subjective Comments No acute events reported Active Medications Current Medications Medications (Trade) Dose Ordered Sig/Reymundo Route Start Time Stop Time Status Last Admin (NS Flush) 2 ml UNSCH PRN .XX 04/10/17 22:00 04/24/17 13:13 (NS Flush) 2 ml BID .XX 04/11/17 09:00 04/27/17 09:00 (Tylenol) 650 mg Q6H PRN PO 04/10/17 22:00 04/26/17 13:46 (Morphine Inj) 2 mg Q2H PRN IV 04/10/17 22:00 04/18/17 21:05 (Pepcid Inj) 20 mg Q12HR IV PUSH 04/11/17 09:00 04/27/17 09:48 (Zofran Inj) 4 mg Q6H PRN IV 04/10/17 22:00 (Reglan Inj) 10 mg Q6H PRN IV 04/10/17 22:00 (Compazine Supp) 25 mg Q12H PRN RECTAL 04/10/17 22:00 Miscellaneous Information 1 Q361D XX 04/10/17 22:00 04/10/17 22:00 (Chlorhexidine 2% Cloth) Taper DAILY@04 TOP 04/11/17 04:00 04/07/18 03:59 04/22/17 04:00 (Chlorhexidine 2% Cloth) 3 pack UNSCH PRN TOP 04/10/17 22:00 (Evelyn-Colace) 1 tab BID PO 04/11/17 09:00 04/27/17 10:10 (Milk Of Magnesia Liq) 30 ml Q12H PRN PO 04/10/17 22:00 (Senokot) 17.2 mg Q12H PRN PO 04/10/17 22:00 (Dulcolax Supp) 10 mg DAILY PRN RECTAL 04/10/17 22:00 (Lactulose Liq) 30 ml DAILY PRN PO 04/10/17 22:00 04/24/17 08:44 (Apresoline Inj) 20 mg Q4H PRN IV PUSH 04/12/17 08:15 04/16/17 17:38 (Reglan Inj) 5 mg Q8HR IV PUSH 04/12/17 16:00 04/27/17 12:43 (Norvasc) 10 mg DAILY PO 04/14/17 19:45 04/27/17 10:10 (Vasotec Inj) 1.25 mg Q6H PRN IV PUSH 04/15/17 01:15 04/27/17 17:29 (Nitroglycerin 2% Oint) 2 inch Q6HR PRN TOPICAL 04/15/17 06:00 04/16/17 12:34 Miscellaneous 1 ea 1 ea UNSCH PRN OTHER 04/20/17 17:15 (Rocephin Inj/NS Inj) 100 ml @ 200 mls/hr HS IV 04/22/17 21:30 04/26/17 22:32 (Lopressor) 50 mg BID PO 04/24/17 21:00 04/27/17 10:10 (Prinivil) 20 mg DAILY PO 04/26/17 09:00 04/27/17 09:52 (Catapres) 0.2 mg Q8HR PO 04/26/17 22:00 04/27/17 12:45 (Apresoline) 100 mg Q8HR PO 04/27/17 22:00 Allergies Allergies Coded Allergies UNOBTAINABLE (Unverified04/10/17) Exam I&O / VS 04/26/17 04/26/17 04/27/17 15:00 23:00 07:00 Intake Total 1494 ml 920 ml Balance 1494 ml 920 ml IV Total 100 ml Tube Feeding 1384 ml 720 ml Tube Irrigant 110 ml Other 100 ml # Voids 7 1 1 # Bowel Movements 3 1 1 Vital Signs Date Time Temp Pulse Resp B/P Pulse Ox O2 Delivery O2 Flow Rate FiO2 04/27/17 16:42 98.8 82 20 165/86 99 04/27/17 12:33 97.2 67 20 166/103 95 04/27/17 08:10 98.7 82 20 172/96 96 04/27/17 04:00 99.0 71 21 147/74 97 04/27/17 00:00 97.3 67 20 132/79 97 04/26/17 22:31 91 136/84 04/26/17 20:00 98.3 77 20 142/80 97 Exam Comments lethargic, does not follow commands Pupils 2 mm symmetric and reactive with left gaze preference 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
[2017-04-27 20:00] VITALS: BP 157/95; PULSE 73; RESP 20; TEMP 97.7; O2SAT 97
[2017-04-27] MEDS: cefTRIAXone INJ 1,000 MG in SODIUM CHLORIDE 0.9% INJ 100 ML IV SCH (21:07)
[2017-04-28] VITALS (8 sets, daily range): BP systolic 118–176; BP diastolic 62–91; PULSE 63–84; RESP 20; TEMP 95.9–99.2; O2SAT 97–100
[2017-04-28] MEDS: CHLORHEXIDINE GLUCONATE 2 % 1 PACK (2 CLOTHS) TOP SCH (03:13)
[2017-04-28] MEDS: cloNIDine HCL 0.2 MG TAB PO SCH ×3 (06:17→21:19)
[2017-04-28] MEDS: METOCLOPRAMIDE HCL 10 MG/2 ML VIAL IV PUSH SCH ×3 (06:17→21:19)
[2017-04-28] MEDS: hydrALAZINE HCL 50 MG TAB PO SCH ×3 (06:17→21:19)
--- NOTE | 2017-04-28 08:37 | HHI.PR ---
Review/Management Diagnosis left thalamic hemorrhage with intraventricular extension,--stable Plan continue BP control Diagnosis/Plan: Subjective Subjective Comments No acute events reported Active Medications Current Medications Medications (Trade) Dose Ordered Sig/Reymundo Route Start Time Stop Time Status Last Admin (NS Flush) 2 ml UNSCH PRN .XX 04/10/17 22:00 04/24/17 13:13 (NS Flush) 2 ml BID .XX 04/11/17 09:00 04/27/17 21:08 (Tylenol) 650 mg Q6H PRN PO 04/10/17 22:00 04/26/17 13:46 (Morphine Inj) 2 mg Q2H PRN IV 04/10/17 22:00 04/18/17 21:05 (Pepcid Inj) 20 mg Q12HR IV PUSH 04/11/17 09:00 04/27/17 21:06 (Zofran Inj) 4 mg Q6H PRN IV 04/10/17 22:00 (Reglan Inj) 10 mg Q6H PRN IV 04/10/17 22:00 (Compazine Supp) 25 mg Q12H PRN RECTAL 04/10/17 22:00 Miscellaneous Information 1 Q361D XX 04/10/17 22:00 04/10/17 22:00 (Chlorhexidine 2% Cloth) Taper DAILY@04 TOP 04/11/17 04:00 04/07/18 03:59 04/22/17 04:00 (Chlorhexidine 2% Cloth) 3 pack UNSCH PRN TOP 04/10/17 22:00 (Evelyn-Colace) 1 tab BID PO 04/11/17 09:00 04/27/17 10:10 (Milk Of Magnesia Liq) 30 ml Q12H PRN PO 04/10/17 22:00 (Senokot) 17.2 mg Q12H PRN PO 04/10/17 22:00 (Dulcolax Supp) 10 mg DAILY PRN RECTAL 04/10/17 22:00 (Lactulose Liq) 30 ml DAILY PRN PO 04/10/17 22:00 04/24/17 08:44 (Apresoline Inj) 20 mg Q4H PRN IV PUSH 04/12/17 08:15 04/16/17 17:38 (Reglan Inj) 5 mg Q8HR IV PUSH 04/12/17 16:00 04/28/17 06:17 (Norvasc) 10 mg DAILY PO 04/14/17 19:45 04/27/17 10:10 (Vasotec Inj) 1.25 mg Q6H PRN IV PUSH 04/15/17 01:15 04/27/17 17:29 (Nitroglycerin 2% Oint) 2 inch Q6HR PRN TOPICAL 04/15/17 06:00 04/16/17 12:34 Miscellaneous 1 ea 1 ea UNSCH PRN OTHER 04/20/17 17:15 (Rocephin Inj/NS Inj) 100 ml @ 200 mls/hr HS IV 04/22/17 21:30 04/27/17 21:07 (Lopressor) 50 mg BID PO 04/24/17 21:00 04/27/17 21:06 (Catapres) 0.2 mg Q8HR PO 04/26/17 22:00 04/28/17 06:17 (Apresoline) 100 mg Q8HR PO 04/27/17 22:00 04/28/17 06:17 (Prinivil) 40 mg DAILY PO 04/28/17 09:00 Allergies Allergies Coded Allergies UNOBTAINABLE (Unverified04/10/17) Exam I&O / VS 04/27/17 04/27/17 04/28/17 15:00 23:00 07:00 Intake Total 920 ml Balance 920 ml IV Total 100 ml Tube Feeding 720 ml Other 100 ml # Voids 4 3 1 # Bowel Movements 3 2 1 Vital Signs Date Time Temp Pulse Resp B/P Pulse Ox O2 Delivery O2 Flow Rate FiO2 04/28/17 06:15 64 176/79 04/28/17 04:00 96.5 84 20 140/71 98 04/28/17 00:00 97.9 63 20 129/66 98 04/27/17 20:00 97.7 73 20 157/95 97 04/27/17 16:42 98.8 82 20 165/86 99 04/27/17 12:33 97.2 67 20 166/103 95 Exam Comments lethargic, does not follow commands Pupils 2 mm symmetric and reactive with left gaze preference 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
[2017-04-28] MEDS: METOPROLOL TARTRATE 50 MG TAB PO SCH ×3 (08:54→21:21)
[2017-04-28] MEDS: SODIUM CHLORIDE 0.9% FLUSH 10 ML FLUSH SCH ×2 (08:54→21:21)
[2017-04-28] MEDS: FAMOTIDINE 20 MG/2 ML VIAL IV PUSH SCH ×2 (08:54→21:20)
[2017-04-28] MEDS: LISINOPRIL 20 MG TAB PO SCH ×2 (08:54→09:00)
[2017-04-28] MEDS: DOCUSATE SODIUM 50 MG/SENNA 8.6 MG TAB PO SCH ×2 (09:00→21:21)
--- NOTE | 2017-04-28 12:45 | HHI.PR ---
Subjective Remarks Written by Veena Calvillo, acting as scribe for Dr. Ambrosio on 04/28/17 at 1150. Follow up for intracranial hemorrhage. Patient seen and examined today lying in bed in no apparent distress. Lethargic. Does not follow commands. Opens eyelids to vocal stimulation. No acute events overnight. Afebrile. Objective Vitals Vital Signs Date Time Temp Pulse Resp B/P Pulse Ox O2 Delivery O2 Flow Rate FiO2 04/28/17 09:19 80 20 118/62 100 04/28/17 08:00 96.5 66 20 127/70 97 04/28/17 06:15 64 176/79 04/28/17 04:00 96.5 84 20 140/71 98 04/28/17 00:00 97.9 63 20 129/66 98 04/27/17 20:00 97.7 73 20 157/95 97 04/27/17 16:42 98.8 82 20 165/86 99 I/O 04/27/17 04/27/17 04/27/17 04/28/17 04/28/17 04/28/17 07:00 15:00 23:00 07:00 15:00 23:00 Intake Total 920 ml 920 ml Balance 920 ml 920 ml IV Total 100 ml 100 ml Tube Feeding 720 ml 720 ml Other 100 ml 100 ml # Voids 1 4 3 1 # Bowel Movements 1 3 2 1 Imaging Last Impressions Head CT 04/25/17 0000 Signed Impressions: Service Date/Time: Tuesday, April 25, 2017 18:02 - CONCLUSION: 1. Evolving left thalamic hematoma. No new hemorrhage. Adi Quarles MD Abdomen X-Ray 04/12/17 1538 Signed Impressions: Service Date/Time: Wednesday, April 12, 2017 17:29 - CONCLUSION: Nonobstructive bowel gas pattern. Suresh Zapata MD Chest X-Ray 04/10/17 2000 Signed Impressions: Service Date/Time: Monday, April 10, 2017 21:03 - CONCLUSION: No evidence of acute cardiopulmonary disease. Hu Henderson MD Neck CTA 04/10/17 0000 Signed Impressions: Service Date/Time: Monday, April 10, 2017 22:28 - CONCLUSION: The internal carotid arteries are normal bilaterally. No significant atherosclerotic disease is noted. Eliud Du MD Head CTA 04/10/17 0000 Signed Impressions: Service Date/Time: Monday, April 10, 2017 22:50 - CONCLUSION: Mild dilatation of the basilar tip without discrete aneurysm. Some narrowing of the left middle cerebral branch after the bifurcation. Prominent left thalamic hemorrhage. Eliud Du MD Objective Remarks GENERAL: Well-developed patient. Nonverbal, lethargic. NAD. SKIN: Warm and dry. HEAD: Normocephalic. NG tube in place, TF continued. EYES: No scleral icterus. No injection or drainage. NECK: trachea midline. No JVD. CARDIOVASCULAR: Regular rate and rhythm. No murmur appreciated. RESPIRATORY: Breath sounds equal bilaterally. No accessory muscle use. GASTROINTESTINAL: Abdomen soft, non-tender, nondistended. MUSCULOSKELETAL: No cyanosis, or edema. NEURO: Obtunded. Procedures None. A/P Assessment and Plan Patient is a middle-aged female with unknown identity who was brought to the hospital on 04/10/2017 due to altered mental status, right sided weakness with a left-jacobs gaze. Upon presentation, she was found to have BP around 250/[address] elevation in V1-V3 and T wave inversions in V5 , V6. Cardene drip was initiated and a CT head was done with suspicion of ICH. Cardiology attributed EKG changes to probable ICH. CT head indeed confirmed ICH with intraventricular extension. 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 - No surgical intervention as per Dr. Wang, recommended to keep systolic BP around 120 - 150. Patient currently hypertensive. - Neurology following, appreciate input. CT head reviewed showing evolving left thalamic hematoma, no new hemorrhage. UTI with E Coli and Klebsiela - Continue Ceftriaxone 1g QHS. Hypertension, currently elevated 166/103. - Currently on Amlodipine 10mg Qday, Clonidine 0.2mg Q8hrs, Hydralazine 100 mg PO Q8hrs, Metoprolol 50mg BID. - Increased Lisinopril from 20mg Qday to 40 mgQday. BP more controlled. Will monitor. - Continue Hydralazine 100mg Q8hrs. DVT Prophylaxis: TEDs Full code. This note was transcribed by ILENE Mann. I, Dr. Pavan Ambrosio personally performed the history, physical exam, and medical decision making; and confirmed the accuracy of the information in the transcribed note. Authenticated by Dr. Pavan Ambrosio on 04/28/17 at 22:26. Discharge Planning Last CM note 04/25/17 9:40am: According to [facility] health continues to try to meet with pt but pt unable to assist in the application. Pt remains Nichol Holley. Veena Calvillo Apr 28, 2017 12:45 Arya Ambrosio DO Apr 28, 2017 22:27
[2017-04-28] MEDS: cefTRIAXone INJ 1,000 MG in SODIUM CHLORIDE 0.9% INJ 100 ML IV SCH (21:20)
[2017-04-29 02:08] VITALS: BP 147/86; PULSE 65; RESP 18; TEMP 96.2; O2SAT 100
[2017-04-29] MEDS: CHLORHEXIDINE GLUCONATE 2 % 1 PACK (2 CLOTHS) TOP SCH (03:32)
[2017-04-29 05:43] VITALS: BP 138/72; PULSE 73; RESP 18; TEMP 98.5; O2SAT 99
[2017-04-29] MEDS: METOCLOPRAMIDE HCL 10 MG/2 ML VIAL IV PUSH SCH ×3 (05:55→22:05)
[2017-04-29] MEDS: hydrALAZINE HCL 50 MG TAB PO SCH ×3 (05:55→22:03)
[2017-04-29] MEDS: cloNIDine HCL 0.2 MG TAB PO SCH ×3 (05:55→22:02)
[2017-04-29 07:44] VITALS: BP 107/65; PULSE 69; RESP 20; TEMP 98.5; O2SAT 97
[2017-04-29] MEDS: SODIUM CHLORIDE 0.9% FLUSH 10 ML FLUSH SCH ×2 (09:00→22:05)
[2017-04-29] MEDS: FAMOTIDINE 20 MG/2 ML VIAL IV PUSH SCH ×2 (09:26→22:04)
[2017-04-29] MEDS: DOCUSATE SODIUM 50 MG/SENNA 8.6 MG TAB PO SCH ×2 (09:26→22:03)
[2017-04-29] MEDS: LISINOPRIL 20 MG TAB PO SCH (09:26)
[2017-04-29] MEDS: METOPROLOL TARTRATE 50 MG TAB PO SCH ×2 (09:26→22:03)
[2017-04-29 12:44] VITALS: BP 125/76; PULSE 57; RESP 20; TEMP 99; O2SAT 97
--- NOTE | 2017-04-29 15:04 | HHI.PR ---
Subjective Remarks Patient laying in bed closed eyes, not responding to verbal stimuli, some facial grimacing with sternal rub Objective Vitals Vital Signs Date Time Temp Pulse Resp B/P Pulse Ox O2 Delivery O2 Flow Rate FiO2 04/29/17 12:44 99.0 57 20 125/76 97 04/29/17 07:44 98.5 69 20 107/65 97 04/29/17 05:43 98.5 73 18 138/72 99 04/29/17 02:08 96.2 65 18 147/86 100 04/28/17 20:06 95.9 73 20 157/88 100 04/28/17 16:11 99.0 78 20 149/91 98 I/O 04/28/17 04/28/17 04/28/17 04/29/17 04/29/17 04/29/17 07:00 15:00 23:00 07:00 15:00 23:00 Intake Total 920 ml 980 ml Balance 920 ml 980 ml IV Total 100 ml Tube Feeding 720 ml 740 ml Other 100 ml 240 ml # Voids 1 2 3 # Bowel Movements 1 1 Objective Remarks GENERAL: Well-developed patient. closed eyes, not responsive to verbal stimuli SKIN: Warm and dry. HEAD: Normocephalic. NG tube in place, TF continued. EYES: No scleral icterus. No injection or drainage. NECK: trachea midline. No JVD. CARDIOVASCULAR: Regular rate and rhythm. No murmur appreciated. RESPIRATORY: Fair air entry. No accessory muscle use. GASTROINTESTINAL: Abdomen soft, non-tender, nondistended. MUSCULOSKELETAL: No cyanosis, or edema. NEURO: Obtunded. Grimacing face to sternal rub Procedures None. A/P Assessment and Plan 02/27: Continue current management, no change, cbc in am A/P: Patient is a middle-aged female with unknown identity who was brought to the hospital on 04/10/2017 due to altered mental status, right sided weakness with a left-jacobs gaze. Upon presentation, she was found to have BP around 250/[address] elevation in V1-V3 and T wave inversions in V5 , V6. Cardene drip was initiated and a CT head was done with suspicion of ICH. Cardiology attributed EKG changes to probable ICH. CT head indeed confirmed ICH with intraventricular extension. 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 - No surgical intervention as per Dr. Wang, recommended to keep systolic BP around 120 - 150. Patient currently hypertensive. - Neurology following, appreciate input. CT head reviewed showing evolving left thalamic hematoma, no new hemorrhage. UTI with E Coli and Klebsiela - Continue Ceftriaxone 1g QHS. Hypertension, currently elevated 166/103. - Currently on Amlodipine 10mg Qday, Clonidine 0.2mg Q8hrs, Hydralazine 100 mg PO Q8hrs, Metoprolol 50mg BID. - Increased Lisinopril from 20mg Qday to 40 mgQday. BP more controlled. Will monitor. - Continue Hydralazine 100mg Q8hrs. DVT Prophylaxis: Kirsten Valadez MD Apr 29, 2017 15:04
[2017-04-29 15:48] VITALS: BP 122/58; PULSE 66; RESP 20; TEMP 98.7; O2SAT 98
[2017-04-29 20:48] VITALS: BP 157/80; PULSE 70; RESP 20; TEMP 96.8; O2SAT 97
[2017-04-29] MEDS: cefTRIAXone INJ 1,000 MG in SODIUM CHLORIDE 0.9% INJ 100 ML IV SCH (22:04)
[2017-04-30 01:02] VITALS: BP 136/73; PULSE 62; RESP 18; TEMP 98; O2SAT 97
[2017-04-30] MEDS: CHLORHEXIDINE GLUCONATE 2 % 1 PACK (2 CLOTHS) TOP SCH (04:00)
[2017-04-30 04:29] VITALS: BP 141/81; PULSE 68; RESP 20; TEMP 98; O2SAT 98
[2017-04-30] MEDS: hydrALAZINE HCL 50 MG TAB PO SCH ×3 (05:35→21:52)
[2017-04-30] MEDS: METOCLOPRAMIDE HCL 10 MG/2 ML VIAL IV PUSH SCH ×3 (05:35→21:46)
[2017-04-30] MEDS: cloNIDine HCL 0.2 MG TAB PO SCH ×3 (05:35→21:45)
[2017-04-30] MEDS: SODIUM CHLORIDE 0.9% FLUSH 10 ML FLUSH PRN (05:36)
[2017-04-30 08:00] VITALS: BP 127/75; PULSE 70; RESP 17; TEMP 96.9; O2SAT 98
[2017-04-30 08:12] LABS: HEMATOCRIT 39.5 % (35.0-46.0)
[2017-04-30] MEDS: DOCUSATE SODIUM 50 MG/SENNA 8.6 MG TAB PO SCH ×2 (08:25→21:45)
[2017-04-30] MEDS: METOPROLOL TARTRATE 50 MG TAB PO SCH ×2 (08:25→21:45)
[2017-04-30] MEDS: LISINOPRIL 20 MG TAB PO SCH (08:25)
[2017-04-30] MEDS: FAMOTIDINE 20 MG/2 ML VIAL IV PUSH SCH ×2 (08:25→21:46)
[2017-04-30] MEDS: SODIUM CHLORIDE 0.9% FLUSH 10 ML FLUSH SCH ×2 (08:25→21:47)
--- NOTE | 2017-04-30 11:36 | HHI.PR ---
Subjective Remarks Written by Veena Calvillo, acting as scribe for Dr. Garza on 04/30/17 at 1135. Follow up intracranial hemorrhage. Patient seen and examined today. Patient opens eyes to vocal stimulation, does not track with eyes. Patient was able to raise left arm slightly to command and had left hand grasp. Afebrile. Positive BM. Objective Vitals Vital Signs Date Time Temp Pulse Resp B/P Pulse Ox O2 Delivery O2 Flow Rate FiO2 04/30/17 08:00 96.9 70 17 127/75 98 04/30/17 04:29 98.0 68 20 141/81 98 04/30/17 01:02 98.0 62 18 136/73 97 04/29/17 20:48 96.8 70 20 157/80 97 04/29/17 15:48 98.7 66 20 122/58 98 04/29/17 12:44 99.0 57 20 125/76 97 I/O 04/29/17 04/29/17 04/29/17 04/30/17 04/30/17 04/30/17 07:00 15:00 23:00 07:00 15:00 23:00 Intake Total 980 ml 1679 ml Balance 980 ml 1679 ml Intake Oral 0 ml IV Total 100 ml Tube Feeding 740 ml 1379 ml Other 240 ml 200 ml # Voids 3 2 0 Result Diagram: 04/30/17 0646 Imaging Last Impressions Head CT 04/25/17 0000 Signed Impressions: Service Date/Time: Tuesday, April 25, 2017 18:02 - CONCLUSION: 1. Evolving left thalamic hematoma. No new hemorrhage. Adi Quarles MD Abdomen X-Ray 04/12/17 1538 Signed Impressions: Service Date/Time: Wednesday, April 12, 2017 17:29 - CONCLUSION: Nonobstructive bowel gas pattern. Suresh Zapata MD Chest X-Ray 04/10/17 2000 Signed Impressions: Service Date/Time: Monday, April 10, 2017 21:03 - CONCLUSION: No evidence of acute cardiopulmonary disease. Hu Henderson MD Neck CTA 04/10/17 0000 Signed Impressions: Service Date/Time: Monday, April 10, 2017 22:28 - CONCLUSION: The internal carotid arteries are normal bilaterally. No significant atherosclerotic disease is noted. Eliud Du MD Head CTA 04/10/17 0000 Signed Impressions: Service Date/Time: Monday, April 10, 2017 22:50 - CONCLUSION: Mild dilatation of the basilar tip without discrete aneurysm. Some narrowing of the left middle cerebral branch after the bifurcation. Prominent left thalamic hemorrhage. Eliud Du MD Objective Remarks GENERAL: Well-developed patient. Nonverbal, lethargic lying in bed in nad. SKIN: Warm and dry. HEAD: Normocephalic. NG tube in place, TF continued. EYES: No scleral icterus. No injection or drainage. NECK: trachea midline. No JVD. CARDIOVASCULAR: Regular rate and rhythm. 3/6 blowing murmur noted. RESPIRATORY: Breath sounds equal bilaterally. No accessory muscle use. GASTROINTESTINAL: Abdomen soft, non-tender, nondistended. MUSCULOSKELETAL: No cyanosis, or edema. Left arm slightly lift with left hand grasp, 3.5 muscle strength. Right upper and bilateral lower extremities flaccid , 0/5 muscle strength. Procedures None. Urinary Catheter: No Vascular Central Line Catheter: No A/P Assessment and Plan Patient is a middle-aged female with unknown identity who was brought to the hospital on 04/10/2017 due to altered mental status, right sided weakness with a left-jacobs gaze. Upon presentation, she was found to have BP around 250/[address] elevation in V1-V3 and T wave inversions in V5 , V6. Cardene drip was initiated and a CT head was done with suspicion of ICH. Cardiology attributed EKG changes to probable ICH. CT head indeed confirmed ICH with intraventricular extension. 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 - No surgical intervention as per Dr. Wang, recommended to keep systolic BP around 120 - 150. Patient currently hypertensive. - Neurology following, appreciate input. CT head reviewed showing evolving left thalamic hematoma, no new hemorrhage. - H&H reviewed by me today, stable. UTI with E Coli and Klebsiela - Patient asymptomatic, afebrile, vitals stable. Ceftriaxone started 04/22/17 , stop Ceftriaxone today 04/30/17. Repeat UA. Follow. Hypertension, currently elevated 166/103. - Currently on Amlodipine 10mg Qday, Clonidine 0.2mg Q8hrs, Hydralazine 100 mg PO Q8hrs, Metoprolol 50mg BID. - Increased Lisinopril from 20mg Qday to 40 mgQday. BP more controlled. Will monitor. - Continue Hydralazine 100mg Q8hrs. DVT Prophylaxis: TEDs Full code. Discharge Planning Last CM note: 04/28/17 Yoko from [facility] continues work on a name for pt. Attending Statement This note was transcribed by scribe [Veena Calvillo]. I, Dr. Kirsten Garza personally performed the history, physical exam, and medical decision making; and confirmed the accuracy of the information in the transcribed note. Authenticated by Dr. Kirsten Garza on 04/30/17 at 15:22. Veena Calvillo Apr 30, 2017 11:35 Kirsten Garza MD Apr 30, 2017 15:22
[2017-04-30 11:59] VITALS: BP 122/75; PULSE 66; RESP 18; TEMP 97.7; O2SAT 98
[2017-04-30 13:17] LABS: AMORPHOUS SEDIMENT, URINE FEW; BILIRUBIN, URINE NEG (NEG); BLOOD, URINE NEG (NEG); GLUCOSE,URINE NEG (NEG); KETONE, URINE NEG (NEG); NITRITE,URINE NEG (NEG); SQUAMOUS EPITHELIAL CELL URINE <1 /hpf (0-5); URINE COLOR YELLOW (YELLW/STRAW); URINE LEUKOCYTE ESTERASE NEG (NEG)
[2017-04-30 16:00] VITALS: BP 122/71; PULSE 67; RESP 19; TEMP 97.5; O2SAT 98
[2017-04-30 21:23] VITALS: BP 137/86; PULSE 66; RESP 20; TEMP 97.9; O2SAT 100
[2017-05-01 01:11] VITALS: BP 123/67; PULSE 57; RESP 19; TEMP 97.6; O2SAT 97
[2017-05-01] MEDS: CHLORHEXIDINE GLUCONATE 2 % 1 PACK (2 CLOTHS) TOP SCH (04:00)
[2017-05-01] MEDS: hydrALAZINE HCL 50 MG TAB PO SCH ×3 (04:48→20:43)
[2017-05-01] MEDS: cloNIDine HCL 0.2 MG TAB PO SCH ×3 (04:48→20:43)
[2017-05-01] MEDS: METOCLOPRAMIDE HCL 10 MG/2 ML VIAL IV PUSH SCH ×3 (04:48→20:44)
[2017-05-01] MEDS: SODIUM CHLORIDE 0.9% FLUSH 10 ML FLUSH PRN (04:49)
[2017-05-01 05:06] VITALS: BP 124/70; PULSE 61; RESP 19; TEMP 97.4; O2SAT 96
[2017-05-01 08:05] VITALS: BP 117/74; PULSE 67; RESP 16; TEMP 96.6; O2SAT 98
[2017-05-01] MEDS: SODIUM CHLORIDE 0.9% FLUSH 10 ML FLUSH SCH ×2 (09:00→20:44)
[2017-05-01] MEDS: DOCUSATE SODIUM 50 MG/SENNA 8.6 MG TAB PO SCH ×2 (09:01→20:43)
[2017-05-01] MEDS: METOPROLOL TARTRATE 50 MG TAB PO SCH ×2 (09:01→20:43)
[2017-05-01] MEDS: LISINOPRIL 20 MG TAB PO SCH (09:01)
[2017-05-01] MEDS: FAMOTIDINE 20 MG/2 ML VIAL IV PUSH SCH ×2 (09:02→20:44)
[2017-05-01 11:45] VITALS: BP 123/75; PULSE 58; RESP 16; TEMP 97.5; O2SAT 98
[2017-05-01 16:18] VITALS: BP 109/70; PULSE 59; RESP 16; TEMP 96.9; O2SAT 98
--- NOTE | 2017-05-01 18:02 | HHI.PR ---
Subjective Remarks Follow up intracranial hemorrhage. Patient seen and examined today laying a bed. Patient opens eyes closed during much of visit and does not track with eyes.She was not responding to commands. Per RN (Mercedez), pt resting, no new complaints or acute changes overnight or since start of shift. Objective Vitals Vital Signs Date Time Temp Pulse Resp B/P Pulse Ox O2 Delivery O2 Flow Rate FiO2 05/01/17 16:18 96.9 59 16 109/70 98 05/01/17 11:45 97.5 58 16 123/75 98 05/01/17 08:05 96.6 67 16 117/74 98 05/01/17 05:06 97.4 61 19 124/70 96 05/01/17 01:11 97.6 57 19 123/67 97 04/30/17 21:23 97.9 66 20 137/86 100 I/O 04/30/17 04/30/17 04/30/17 05/01/17 05/01/17 05/01/17 07:00 15:00 23:00 07:00 15:00 23:00 Intake Total 900 ml 400 ml Output Total 1 ml Balance -1 ml 900 ml 400 ml Tube Feeding 900 ml Other 400 ml Stool Total 1 ml # Voids 0 1 1 1 Result Diagram: 04/30/17 0646 Imaging Last Impressions Head CT 04/25/17 0000 Signed Impressions: Service Date/Time: Tuesday, April 25, 2017 18:02 - CONCLUSION: 1. Evolving left thalamic hematoma. No new hemorrhage. Adi Quarles MD Abdomen X-Ray 04/12/17 1538 Signed Impressions: Service Date/Time: Wednesday, April 12, 2017 17:29 - CONCLUSION: Nonobstructive bowel gas pattern. Suresh Zapata MD Chest X-Ray 04/10/171999 Signed Impressions: Service Date/Time: Monday, April 10, 2017 21:03 - CONCLUSION: No evidence of acute cardiopulmonary disease. Hu Henderson MD Neck CTA 04/10/17 0000 Signed Impressions: Service Date/Time: Monday, April 10, 2017 22:28 - CONCLUSION: The internal carotid arteries are normal bilaterally. No significant atherosclerotic disease is noted. Eliud Du MD Head CTA 04/10/17 0000 Signed Impressions: Service Date/Time: Monday, April 10, 2017 22:50 - CONCLUSION: Mild dilatation of the basilar tip without discrete aneurysm. Some narrowing of the left middle cerebral branch after the bifurcation. Prominent left thalamic hemorrhage. Eliud Du MD Objective Remarks GENERAL: pt laying a bed, eyes closed, NAD. NG tube in place with food being delivered. SKIN: Warm and dry. HEAD: Normocephalic. EYES: No scleral icterus. No injection or drainage. Eye lids were manually in order for the conjunctive to be visualized. NECK: Supple, trachea midline. No or lymphadenopathy. CARDIOVASCULAR: Regular rate and rhythm without murmurs, gallops, or rubs. RESPIRATORY: Breath sounds equal bilaterally. No accessory muscle use. GASTROINTESTINAL: Abdomen soft, non-tender, nondistended. MUSCULOSKELETAL: No cyanosis, or edema. NEUROLOGICAL: could not assess. Procedures None. Medications and IVs Current Medications Medications (Trade) Dose Ordered Sig/Reymundo Route Start Time Stop Time Status Last Admin (NS Flush) 2 ml UNSCH PRN .XX 04/10/17 22:00 05/01/17 04:49 (NS Flush) 2 ml BID .XX 04/11/17 09:00 05/01/17 09:00 (Tylenol) 650 mg Q6H PRN PO 04/10/17 22:00 04/26/17 13:46 (Morphine Inj) 2 mg Q2H PRN IV 04/10/17 22:00 04/18/17 21:05 (Pepcid Inj) 20 mg Q12HR IV PUSH 04/11/17 09:00 05/01/17 09:02 (Zofran Inj) 4 mg Q6H PRN IV 04/10/17 22:00 (Reglan Inj) 10 mg Q6H PRN IV 04/10/17 22:00 (Compazine Supp) 25 mg Q12H PRN RECTAL 04/10/17 22:00 Miscellaneous Information 1 Q361D XX 04/10/17 22:00 04/10/17 22:00 (Chlorhexidine 2% Cloth) 3 pack Taper DAILY@04 TOP 04/11/17 04:00 04/07/18 03:59 04/22/17 04:00 (Chlorhexidine 2% Cloth) 3 pack UNSCH PRN TOP 04/10/17 22:00 (Evelyn-Colace) 1 tab BID PO 04/11/17 09:00 05/01/17 09:01 (Milk Of Magnesia Liq) 30 ml Q12H PRN PO 04/10/17 22:00 (Senokot) 17.2 mg Q12H PRN PO 04/10/17 22:00 (Dulcolax Supp) 10 mg DAILY PRN RECTAL 04/10/17 22:00 (Lactulose Liq) 30 ml DAILY PRN PO 04/10/17 22:00 04/24/17 08:44 (Apresoline Inj) 20 mg Q4H PRN IV PUSH 04/12/17 08:15 04/16/17 17:38 (Reglan Inj) 5 mg Q8HR IV PUSH 04/12/17 16:00 05/01/17 14:34 (Norvasc) 10 mg DAILY PO 04/14/17 19:45 05/01/17 09:01 (Vasotec Inj) 1.25 mg Q6H PRN IV PUSH 04/15/17 01:15 04/27/17 17:29 (Nitroglycerin 2% Oint) 2 inch Q6HR PRN TOPICAL 04/15/17 06:00 04/16/17 12:34 (Pill Splitter) 1 ea UNSCH PRN OTHER 04/20/17 17:15 (Lopressor) 50 mg BID PO 04/24/17 21:00 05/01/17 09:01 (Catapres) 0.2 mg Q8HR PO 04/26/17 22:00 05/01/17 14:34 (Apresoline) 100 mg Q8HR PO 04/27/17 22:00 05/01/17 14:34 (Prinivil) 40 mg DAILY PO 04/28/17 09:00 05/01/17 09:01 Urinary Catheter: Yes Assessment to: Continue Cruz insert reason: Prolonged Immobilization A/P Assessment and Plan Patient is a middle-aged female with unknown identity who was brought to the hospital on 04/10/2017 due to altered mental status, right sided weakness with a left-jacobs gaze. Upon presentation, she was found to have BP around 250/[address] elevation in V1-V3 and T wave inversions in V5 , V6. Cardene drip was initiated and a CT head was done with suspicion of ICH. Cardiology attributed EKG changes to probable ICH. CT head indeed confirmed ICH with intraventricular extension. 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 - No surgical intervention as per Dr. Wang, recommended to keep systolic BP around 120 - 150. Patient currently hypertensive. - Neurology following, appreciate input. CT head reviewed showing evolving left thalamic hematoma, no new hemorrhage. - H&H reviewed by me today, stable. UTI with E Coli and Klebsiela - Patient asymptomatic, afebrile, vitals stable. Ceftriaxone started 04/22/17 , stop Ceftriaxone today 04/30/17. Repeat UA. Follow. Will reorder UA on 05/07, one week after antibiotics completed. Hypertension, currently elevated 166/103. - Currently on Amlodipine 10mg Qday, Clonidine 0.2mg Q8hrs, Hydralazine 100 mg PO Q8hrs, Metoprolol 50mg BID. - Increased Lisinopril from 20mg Qday to 40 mgQday. BP more controlled. Will monitor. - Continue Hydralazine 100mg Q8hrs. DVT Prophylaxis: TEDs Full code. Case discussed with RN (Mercedez) and Dr. Fischer. Discharge Planning Discharge Planning Last CM note: 04/28/17 Yoko from [facility] continues work on a name for Leonid Moss Jr. May 01, 2017 18:02
[2017-05-01 20:53] VITALS: BP 139/75; PULSE 65; RESP 20; TEMP 97.6; O2SAT 97
[2017-05-02 01:22] VITALS: BP 121/78; PULSE 58; RESP 20; TEMP 95.8; O2SAT 98
[2017-05-02] MEDS: CHLORHEXIDINE GLUCONATE 2 % 1 PACK (2 CLOTHS) TOP SCH (02:43)
[2017-05-02 05:02] VITALS: BP 137/72; PULSE 69; RESP 20; TEMP 97.6; O2SAT 96
[2017-05-02] MEDS: cloNIDine HCL 0.2 MG TAB PO SCH ×3 (05:16→20:48)
[2017-05-02] MEDS: hydrALAZINE HCL 50 MG TAB PO SCH ×3 (05:17→20:48)
[2017-05-02] MEDS: METOCLOPRAMIDE HCL 10 MG/2 ML VIAL IV PUSH SCH ×3 (05:17→20:49)
[2017-05-02] MEDS: SODIUM CHLORIDE 0.9% FLUSH 10 ML FLUSH SCH ×2 (08:11→20:53)
[2017-05-02] MEDS: DOCUSATE SODIUM 50 MG/SENNA 8.6 MG TAB PO SCH ×2 (08:14→20:48)
[2017-05-02] MEDS: LISINOPRIL 20 MG TAB PO SCH (08:15)
[2017-05-02] MEDS: METOPROLOL TARTRATE 50 MG TAB PO SCH ×2 (08:15→20:48)
[2017-05-02] MEDS: FAMOTIDINE 20 MG/2 ML VIAL IV PUSH SCH ×2 (08:15→20:49)
[2017-05-02 08:16] VITALS: BP 116/78; PULSE 62; RESP 18; TEMP 97.6; O2SAT 96
--- NOTE | 2017-05-02 12:02 | HHI.PR ---
Subjective Remarks Follow up intracranial hemorrhage. Patient seen and examined today laying a bed. NAD Patient kept eyes closed during much of visit and does not track with eyes. She was not responding to commands. Per RN (Helena), pt resting, no new complaints or acute changes overnight or since start of shift. Per RN, pt is able to squeeze her left hand yet has no/limited motor function of her right side. Objective Vitals Vital Signs Date Time Temp Pulse Resp B/P Pulse Ox O2 Delivery O2 Flow Rate FiO2 05/02/17 08:16 97.6 62 18 116/78 96 05/02/17 05:02 97.6 69 20 137/72 96 05/02/17 01:22 95.8 58 20 121/78 98 05/01/17 20:53 97.6 65 20 139/75 97 05/01/17 16:18 96.9 59 16 109/70 98 I/O 05/01/17 05/01/17 05/01/17 05/02/17 05/02/17 05/02/17 07:00 15:00 23:00 07:00 15:00 23:00 Intake Total 900 ml 400 ml 881 ml 446 ml Balance 900 ml 400 ml 881 ml 446 ml Tube Feeding 900 ml 881 ml 446 ml Other 400 ml # Voids 1 2 1 1 Result Diagram: 04/30/17 0646 Objective Remarks GENERAL: pt laying a bed, eyes closed, NAD. NG tube in place with food being delivered.Pt did briefly open eyes upon command. SKIN: Warm and dry. HEAD: Normocephalic. EYES: No scleral icterus. No injection or drainage. CARDIOVASCULAR: Regular rate and rhythm without murmurs, gallops, or rubs. RESPIRATORY: Breath sounds equal bilaterally. No accessory muscle use. GASTROINTESTINAL: Abdomen soft, non-tender, nondistended. MUSCULOSKELETAL: No cyanosis, or edema. NEUROLOGICAL: could not assess. Procedures None. Medications and IVs Current Medications Medications (Trade) Dose Ordered Sig/Reymundo Route Start Time Stop Time Status Last Admin (NS Flush) 2 ml UNSCH PRN .XX 04/10/17 22:00 05/01/17 04:49 (NS Flush) 2 ml BID .XX 04/11/17 09:00 05/02/17 08:11 (Tylenol) 650 mg Q6H PRN PO 04/10/17 22:00 04/26/17 13:46 (Morphine Inj) 2 mg Q2H PRN IV 04/10/17 22:00 04/18/17 21:05 (Pepcid Inj) 20 mg Q12HR IV PUSH 04/11/17 09:00 05/02/17 08:15 (Zofran Inj) 4 mg Q6H PRN IV 04/10/17 22:00 (Reglan Inj) 10 mg Q6H PRN IV 04/10/17 22:00 (Compazine Supp) 25 mg Q12H PRN RECTAL 04/10/17 22:00 Miscellaneous Information 1 Q361D XX 04/10/17 22:00 04/10/17 22:00 (Chlorhexidine 2% Cloth) 3 pack Taper DAILY@04 TOP 04/11/17 04:00 04/07/18 03:59 04/22/17 04:00 (Chlorhexidine 2% Cloth) 3 pack UNSCH PRN TOP 04/10/17 22:00 (Evelyn-Colace) 1 tab BID PO 04/11/17 09:00 05/02/17 08:14 (Milk Of Magnesia Liq) 30 ml Q12H PRN PO 04/10/17 22:00 (Senokot) 17.2 mg Q12H PRN PO 04/10/17 22:00 (Dulcolax Supp) 10 mg DAILY PRN RECTAL 04/10/17 22:00 (Lactulose Liq) 30 ml DAILY PRN PO 04/10/17 22:00 04/24/17 08:44 (Apresoline Inj) 20 mg Q4H PRN IV PUSH 04/12/17 08:15 04/16/17 17:38 (Reglan Inj) 5 mg Q8HR IV PUSH 04/12/17 16:00 05/02/17 05:17 (Norvasc) 10 mg DAILY PO 04/14/17 19:45 05/02/17 08:15 (Vasotec Inj) 1.25 mg Q6H PRN IV PUSH 04/15/17 01:15 04/27/17 17:29 (Nitroglycerin 2% Oint) 2 inch Q6HR PRN TOPICAL 04/15/17 06:00 04/16/17 12:34 (Pill Splitter) 1 ea UNSCH PRN OTHER 04/20/17 17:15 (Lopressor) 50 mg BID PO 04/24/17 21:00 05/02/17 08:15 (Catapres) 0.2 mg Q8HR PO 04/26/17 22:00 05/02/17 05:16 (Apresoline) 100 mg Q8HR PO 04/27/17 22:00 05/02/17 05:17 (Prinivil) 40 mg DAILY PO 04/28/17 09:00 05/02/17 08:15 Urinary Catheter: Yes Assessment to: Continue Cruz insert reason: Prolonged Immobilization A/P Assessment and Plan Patient is a middle-aged female with unknown identity who was brought to the hospital on 04/10/2017 due to altered mental status, right sided weakness with a left-jacobs gaze. Upon presentation, she was found to have BP around 250/[address] elevation in V1-V3 and T wave inversions in V5 , V6. Cardene drip was initiated and a CT head was done with suspicion of ICH. Cardiology attributed EKG changes to probable ICH. CT head indeed confirmed ICH with intraventricular extension. 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 - No surgical intervention as per Dr. Wang, recommended to keep systolic BP around 120 - 150. Patient currently hypertensive. - Neurology following, appreciate input. CT head reviewed showing evolving left thalamic hematoma, no new hemorrhage. - H&H stable. UTI with E Coli and Klebsiela - Patient asymptomatic, afebrile, vitals stable. Ceftriaxone started 04/22/17 , stop Ceftriaxone today 04/30/17. Repeat UA. Follow. Will reorder UA on 05/07, one week after antibiotics completed. Hypertension, currently elevated 166/103. - Currently on Amlodipine 10mg Qday, Clonidine 0.2mg Q8hrs, Hydralazine 100 mg PO Q8hrs, Metoprolol 50mg BID. - Increased Lisinopril from 20mg Qday to 40 mgQday. BP more controlled. Will monitor. - Continue Hydralazine 100mg Q8hrs. DVT Prophylaxis: TEDs; pharmacological DVT prophylaxis held at this time due to pt's thalamic bleed. Will initiate once cleared by neuro. GI prophylaxis: Pepcid 20 mg q 24 hrs. Full code. Case discussed with RN (Helena) and Dr. Fischer. Discharge Planning Discharge Planning Last CM note: 04/28/17 Yoko from [facility] continues work on a name for pt. Leonid Pederson Jr. GSU May 02, 2017 12:02
[2017-05-02 12:06] VITALS: BP 136/74; PULSE 64; RESP 18; TEMP 97.5; O2SAT 97
[2017-05-02 16:06] VITALS: BP 134/70; PULSE 63; RESP 18; TEMP 97.7; O2SAT 98
[2017-05-02 20:00] VITALS: BP 177/87; PULSE 73; RESP 20; TEMP 97.2; O2SAT 98
[2017-05-03 01:00] VITALS: BP 137/75; PULSE 65; RESP 18; TEMP 98; O2SAT 98
[2017-05-03] MEDS: CHLORHEXIDINE GLUCONATE 2 % 1 PACK (2 CLOTHS) TOP SCH (04:00)
[2017-05-03 06:41] VITALS: BP 139/88
[2017-05-03] MEDS: cloNIDine HCL 0.2 MG TAB PO SCH ×3 (06:41→20:51)
[2017-05-03] MEDS: hydrALAZINE HCL 50 MG TAB PO SCH ×3 (06:41→20:51)
[2017-05-03] MEDS: METOCLOPRAMIDE HCL 10 MG/2 ML VIAL IV PUSH SCH ×3 (06:42→20:49)
[2017-05-03 08:04] VITALS: BP 132/76; PULSE 66; RESP 19; TEMP 96.3; O2SAT 98
[2017-05-03] MEDS: SODIUM CHLORIDE 0.9% FLUSH 10 ML FLUSH SCH ×2 (08:33→20:52)
[2017-05-03] MEDS: FAMOTIDINE 20 MG/2 ML VIAL IV PUSH SCH ×2 (08:46→20:49)
[2017-05-03] MEDS: SENNOSIDES 8.6 MG TAB PO PRN (08:47)
[2017-05-03] MEDS: DOCUSATE SODIUM 50 MG/SENNA 8.6 MG TAB PO SCH ×2 (08:47→20:51)
[2017-05-03] MEDS: METOPROLOL TARTRATE 50 MG TAB PO SCH ×2 (08:47→20:51)
[2017-05-03] MEDS: LISINOPRIL 20 MG TAB PO SCH (08:48)
[2017-05-03 12:02] VITALS: BP 125/78; PULSE 78; RESP 18; TEMP 97; O2SAT 98
--- NOTE | 2017-05-03 13:17 | HHI.PR ---
Subjective Remarks Follow up intracranial hemorrhage. Patient seen and examined today laying a bed, awake. NAD Patient kept eyes open during much of visit and does not track with eyes. She followed limited commands. Per RN (Grecia), pt resting, no new complaints or acute changes overnight or since start of shift. Per RN, pt is able to squeeze her left hand yet has no/limited motor function of her right side. Objective Vitals Vital Signs Date Time Temp Pulse Resp B/P Pulse Ox O2 Delivery O2 Flow Rate FiO2 05/03/17 12:02 97.0 78 18 125/78 98 05/03/17 08:04 96.3 66 19 132/76 98 05/03/17 06:41 139/88 05/03/17 01:00 98.0 65 18 137/75 98 05/02/17 20:00 97.2 73 20 177/87 98 05/02/17 16:06 97.7 63 18 134/70 98 I/O 05/02/17 05/02/17 05/02/17 05/03/17 05/03/17 05/03/17 07:00 15:00 23:00 07:00 15:00 23:00 Intake Total 446 ml 630 ml Balance 446 ml 630 ml Tube Feeding 446 ml 360 ml Tube Irrigant 120 ml Other 150 ml # Voids 1 1 1 4 Result Diagram: 04/30/17 0646 Imaging Last Impressions Head CT 04/25/17 0000 Signed Impressions: Service Date/Time: Tuesday, April 25, 2017 18:02 - CONCLUSION: 1. Evolving left thalamic hematoma. No new hemorrhage. Adi Quarles MD Abdomen X-Ray 04/12/17 1538 Signed Impressions: Service Date/Time: Wednesday, April 12, 2017 17:29 - CONCLUSION: Nonobstructive bowel gas pattern. Suresh Zapata MD Chest X-Ray 04/10/17 2000 Signed Impressions: Service Date/Time: Monday, April 10, 2017 21:03 - CONCLUSION: No evidence of acute cardiopulmonary disease. uH Henderson MD Neck CTA 04/10/17 0000 Signed Impressions: Service Date/Time: Monday, April 10, 2017 22:28 - CONCLUSION: The internal carotid arteries are normal bilaterally. No significant atherosclerotic disease is noted. Eliud Du MD Head CTA 04/10/17 0000 Signed Impressions: Service Date/Time: Monday, April 10, 2017 22:50 - CONCLUSION: Mild dilatation of the basilar tip without discrete aneurysm. Some narrowing of the left middle cerebral branch after the bifurcation. Prominent left thalamic hemorrhage. Eliud Du MD Objective Remarks GENERAL: pt laying a bed (angled up), eyes open, NAD. NG tube in place with food being delivered. SKIN: Warm and dry. HEAD: Normocephalic. EYES: No scleral icterus. No injection or drainage. CARDIOVASCULAR: Regular rate and rhythm without murmurs, gallops, or rubs. RESPIRATORY: Breath sounds equal bilaterally. No accessory muscle use. GASTROINTESTINAL: Abdomen soft, non-tender, nondistended. MUSCULOSKELETAL: No cyanosis, or edema. NEUROLOGICAL: Pt was awake, followed only two commands (look at examiner, and attempted to smile). Pt spontaneously moved her left arm and hand, right hemiplegia ongoing. Procedures None. Urinary Catheter: No A/P Assessment and Plan Patient is a middle-aged female with unknown identity who was brought to the hospital on 04/10/2017 due to altered mental status, right sided weakness with a left-jacobs gaze. Upon presentation, she was found to have BP around 250/[address] elevation in V1-V3 and T wave inversions in V5 , V6. Cardene drip was initiated and a CT head was done with suspicion of ICH. Cardiology attributed EKG changes to probable ICH. CT head indeed confirmed ICH with intraventricular extension. 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 - No surgical intervention as per Dr. Wang, recommended to keep systolic BP around 120 - 150. Patient currently hypertensive. - Neurology following, appreciate input. CT head reviewed showing evolving left thalamic hematoma, no new hemorrhage. - H&H stable. UTI with E Coli and Klebsiela - Patient asymptomatic, afebrile, vitals stable. Ceftriaxone started 04/22/17 , stop Ceftriaxone today 04/30/17. Repeat UA. Follow. Will reorder UA on 05/07, one week after antibiotics completed. Hypertension, currently elevated 166/103. - Currently on Amlodipine 10mg Q day, Clonidine 0.2mg Q8hrs, Hydralazine 100 mg PO Q8hrs, Metoprolol 50mg BID. - Increased Lisinopril from 20mg Q day to 40 mg Q day. BP more controlled. Will monitor. - Continue Hydralazine 100mg Q8hrs. DVT Prophylaxis: TEDs; pharmacological DVT prophylaxis held at this time due to pt's thalamic bleed. Will initiate once cleared by neuro. GI prophylaxis: Pepcid 20 mg q 24 hrs. Full code. Case discussed with RN (Grecia) and Dr. Fischer. Discharge Planning Discharge planning is in question until pt's identity is determined. Leonid Pederson Jr. GUS May 03, 2017 13:17
[2017-05-03 20:00] VITALS: BP 150/76; PULSE 70; RESP 18; TEMP 98.7; O2SAT 97
[2017-05-03 21:25] LABS: HEMATOCRIT 40.7 % (35.0-46.0); HEMOGLOBIN 13.6 GM/DL (11.6-15.3); MEAN CELL VOLUME 88.8 FL (80.0-100.0); MEAN CORPUSCULAR HEMOGLOBIN 29.6 PG (27.0-34.0); MEAN CORPUSCULAR HGB CONC 33.3 % (32.0-36.0); MEAN PLATELET VOLUME 10.1 FL (7.0-11.0); PLATELET COUNT 232 TH/MM3 (150-450); RED BLOOD COUNT 4.58 MIL/MM3 (4.00-5.30); RED CELL DISTRIBUTION WIDTH 13.1 % (11.6-17.2); WHITE BLOOD COUNT 4.5 TH/MM3 (4.0-11.0)
[2017-05-03 21:47] LABS: BICARBONATE 28.5 MEQ/L (21.0-32.0); CALCIUM 8.9 MG/DL (8.5-10.1); CREATININE 0.56 MG/DL (0.50-1.00)
[2017-05-04] VITALS (7 sets, daily range): BP systolic 119–158; BP diastolic 68–93; PULSE 56–68; RESP 16–22; TEMP 97.8–98.5; O2SAT 95–99
[2017-05-04] MEDS: CHLORHEXIDINE GLUCONATE 2 % 1 PACK (2 CLOTHS) TOP SCH (02:07)
--- NOTE | 2017-05-04 06:13 | RADRPT ---
EXAM DATE/TIME: 05/04/2017 05:29 [facility] COMPARISON: CHEST SINGLE AP, April 10, 2017, 21:03. INDICATIONS : Dobhoff feeding tube placement. MEDICAL HISTORY : None. SURGICAL HISTORY : None. ENCOUNTER: Initial ACUITY: 3 weeks PAIN SCORE: 0/10 LOCATION: Bilateral chest FINDINGS: A single view of the chest demonstrates the lungs to be symmetrically aerated without evidence of mas s, infiltrate or effusion. The cardiomediastinal contours are unremarkable. Osseous structures are intact. Metallic tip of the Dobbhoff catheter is projected over the distal stomach, to the left of midline at the level of L3. CONCLUSION: 1. Dobbhoff catheter tip in the distal stomach. 2. The lungs are clear. Phillip Moss MD on May 04, 2017 at 6:11 Board Certified Radiologist. This report was verified electronically.
[2017-05-04] MEDS: METOCLOPRAMIDE HCL 10 MG/2 ML VIAL IV PUSH SCH ×2 (06:14→14:02)
[2017-05-04] MEDS: hydrALAZINE HCL 50 MG TAB PO SCH ×3 (06:19→21:28)
[2017-05-04] MEDS: cloNIDine HCL 0.2 MG TAB PO SCH ×3 (06:19→21:28)
[2017-05-04] MEDS: FAMOTIDINE 20 MG/2 ML VIAL IV PUSH SCH (08:37)
[2017-05-04] MEDS: LISINOPRIL 20 MG TAB PO SCH (08:37)
[2017-05-04] MEDS: SODIUM CHLORIDE 0.9% FLUSH 10 ML FLUSH SCH ×2 (08:37→21:28)
[2017-05-04] MEDS: DOCUSATE SODIUM 50 MG/SENNA 8.6 MG TAB PO SCH ×2 (08:37→21:28)
[2017-05-04] MEDS: METOPROLOL TARTRATE 50 MG TAB PO SCH ×2 (08:37→21:28)
--- NOTE | 2017-05-04 16:59 | PD.CONS ---
HPI History of Present Illness This is a female who was brought to the ER by ambulance after being found in a park sitting next to a bench with altered mental status by children on 04/10/17. When EMS arrived, they noted her to be nonverbal with a right sided weakness with a leftward gaze. 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 She has been evaluated by neurosurgery and he has recommended no surgical intervention and to keep systolic blood pressure around 120-150. She is now on the medical floor. Unfortunately, her identify has not been determined. She is resting in bed, nonverbal, and does not follow commands. She is being followed by physical , occupational, and speech therapy. She continues to have severe oropharyngeal dysphagia and cognitive/speech deficits and recommended speech therapy orders and that she remain NPO. She currently has a dobhoff in place and is getting Jevity 1.5 at 60cc/hr as recommended by the head golf coach. GI has been consulted for PEG tube placement evaluation. Unfortunately, the patient's identity is not known and there is no next of kin. Spoke to watch case polisher- the watch case polisher who is following this patient and trying to determine her identify is not here at this time, but has contacted to the police department to see if they could obtain fingerprints, but was told that they were not able to do this. She is in the process of contacting the legal department to try to find out what step should be taken next. PFSH Past Medical History Unable to obtain Past Surgical History Unable to obtain Coded Allergies: UNOBTAINABLE (Unverified , 04/10/17) Medications Allergies Coded Allergies Type Severity Reaction Last Updated Verified UNOBTAINABLE 04/10/17 No Active Scripts Medications Dose Route/Sig Days Date Category Active Prescriptions or Reported Medications Unobtainable Rx Family History Unable to obtain Social History Unable to obtain Review of Systems ROS Unable to obtain GI Exam Vitals I&O Vital Signs Date Time Temp Pulse Resp B/P Pulse Ox O2 Delivery O2 Flow Rate FiO2 05/04/17 16:15 98.2 68 18 128/68 98 05/04/17 14:01 65 151/83 05/04/17 11:40 98.5 57 18 119/78 97 05/04/17 07:45 98.1 64 18 142/76 96 05/04/17 04:00 97.8 65 18 138/93 95 05/04/17 00:00 98.0 56 16 129/74 96 05/03/17 20:00 98.7 70 18 150/76 97 I/O 05/03/17 05/03/17 05/03/17 05/04/17 05/04/17 05/04/17 07:00 15:00 23:00 07:00 15:00 23:00 Intake Total 760 ml 240 ml 1082 ml 1162 ml Balance 760 ml 240 ml 1082 ml 1162 ml Intake Oral 0 ml Tube Feeding 480 ml 240 ml 1082 ml 1072 ml Tube Irrigant 90 ml Other 280 ml # Voids 4 3 1 2 # Bowel Movements 1 1 1 Imaging Last Impressions Chest X-Ray 05/04/17 0000 Signed Impressions: Service Date/Time: April 05:29 - CONCLUSION: 1. Dobbhoff catheter tip in the distal stomach. 2. The lungs are clear. Phillip Moss MD Head CT 04/25/17 0000 Signed Impressions: Service Date/Time: Tuesday, April 25, 2017 18:02 - CONCLUSION: 1. Evolving left thalamic hematoma. No new hemorrhage. Adi Quarles MD Abdomen X-Ray 04/12/17 1538 Signed Impressions: Service Date/Time: Wednesday, April 12, 2017 17:29 - CONCLUSION: Nonobstructive bowel gas pattern. Suresh Zapata MD Neck CTA 04/10/17 0000 Signed Impressions: Service Date/Time: Monday, April 10, 2017 22:28 - CONCLUSION: The internal carotid arteries are normal bilaterally. No significant atherosclerotic disease is noted. Eliud Du MD Head CTA 04/10/17 0000 Signed Impressions: Service Date/Time: Monday, April 10, 2017 22:50 - CONCLUSION: Mild dilatation of the basilar tip without discrete aneurysm. Some narrowing of the left middle cerebral branch after the bifurcation. Prominent left thalamic hemorrhage. Eliud Du MD Laboratory Test 05/03/17 21:01 White Blood Count 4.5 TH/MM3 Red Blood Count 4.58 MIL/MM3 Hemoglobin 13.6 GM/DL Hematocrit 40.7 % Mean Corpuscular Volume 88.8 FL Mean Corpuscular Hemoglobin 29.6 PG Mean Corpuscular Hemoglobin 33.3 % Concent Red Cell Distribution Width 13.1 % Platelet Count 232 TH/MM3 Mean Platelet Volume 10.1 FL Sodium Level 145 MEQ/L Potassium Level 3.8 MEQ/L Chloride Level 111 MEQ/L Carbon Dioxide Level 28.5 MEQ/L Anion Gap 6 MEQ/L Blood Urea Nitrogen 23 MG/DL Creatinine 0.56 MG/DL Estimat Glomerular Filtration 113 ML/MIN Rate Random Glucose 136 MG/DL Calcium Level 8.9 MG/DL Physical Examination HEENT: Normocephalic; atraumatic; no jaundice. CHEST: Resp. even/unlabored. CARDIAC: RRR ABDOMEN: Soft, nondistended, nontender; no hepatosplenomegaly; bowel sounds are present in all four quadrants. Dobhoff in place with TF EXTREMITIES: Mild generalized edema. COPY CLERK: Resting in bed with eyes closed, nonverbal. right upper and bilateral lower extremities flaccid. Assessment and Plan Plan ASSESSMENT: - Dysphagia, FEN. Pt unidentified female that was [place] in park with right sided weakness and leftward gaze. 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 S/P neurosurgery evaluation--- > no surgical intervention and to keep systolic blood pressure around 120-150. ST following for severe oropharyngeal dysphagia and cognitive/speech deficits and recommended speech therapy orders and that she remain NPO. She currently has a dobhoff in place and is getting Jevity 1.5 at 60cc/hr as recommended by the head golf coach. GI has been consulted for PEG tube placement evaluation. Unfortunately, the patient's identity is not known and there is no next of kin. CM working on this, but has not been able to identify patient or next of kin as of this time. PLAN: - Cont. Jevity 1.5 at 60cc/hr via Dobhoff - Cont. ST - CM to continue to work on identifying patient/next of kin - Unfortunately, there is no one at this time to sign consents for PEG tube placement and PEG tube placement on it's own is not considered a life saving procedure. Would continue TF via dobhoff at this time until next of kin or guardian can be established and consents can be obtained. - Pt seen and examined by Dr. De Los Santos and myself and this note is written on his behalf Madison Miller May 04, 2017 16:59
[2017-05-04] MEDS: LACTIC ACID (AMMONIUM LACTATE) 12% LOTION 225 GM BTL TOPICAL SCH ×2 (17:47→21:29)
--- NOTE | 2017-05-04 18:04 | HHI.PR ---
Subjective Remarks Follow up intracranial hemorrhage. Patient seen and examined today laying a bed, initially asleep but easily awakened. NAD Patient kept eyes open during much of visit and does not track with eyes. She followed limited commands. Per RN (Camilla), pt resting, no new complaints or acute changes overnight or since start of shift. RN did report pt's Dobhoff was pulled out over night and replaced, X-ray obtained indicated it was in proper position. Per RN, has no/limited motor function of her right side. Objective Vitals Vital Signs Date Time Temp Pulse Resp B/P Pulse Ox O2 Delivery O2 Flow Rate FiO2 05/04/17 16:15 98.2 68 18 128/68 98 05/04/17 14:01 65 151/83 05/04/17 11:40 98.5 57 18 119/78 97 05/04/17 07:45 98.1 64 18 142/76 96 05/04/17 04:00 97.8 65 18 138/93 95 05/04/17 00:00 98.0 56 16 129/74 96 05/03/17 20:00 98.7 70 18 150/76 97 I/O 05/03/17 05/03/17 05/03/17 05/04/17 05/04/17 05/04/17 07:00 15:00 23:00 07:00 15:00 23:00 Intake Total 760 ml 240 ml 1082 ml 1162 ml Balance 760 ml 240 ml 1082 ml 1162 ml Intake Oral 0 ml Tube Feeding 480 ml 240 ml 1082 ml 1072 ml Tube Irrigant 90 ml Other 280 ml # Voids 4 3 1 2 # Bowel Movements 1 1 1 Result Diagram: 05/03/17210005/03/172100 Objective Remarks GENERAL: pt laying a bed (angled up), sleeping yet easily awakened with eyes open, NAD. NG tube in place with food being delivered. SKIN: Warm and dry. HEAD: Normocephalic. EYES: No scleral icterus. No injection or drainage. CARDIOVASCULAR: Regular rate and rhythm without murmurs, gallops, or rubs. RESPIRATORY: Breath sounds equal bilaterally. No accessory muscle use. GASTROINTESTINAL: Abdomen soft, non-tender, nondistended. MUSCULOSKELETAL: No cyanosis, or edema. NEUROLOGICAL: Pt with left hand in soft restraint. Right hemiplegia continues. Procedures None. Medications and IVs Current Medications Medications (Trade) Dose Ordered Sig/Reymundo Route Start Time Stop Time Status Last Admin (NS Flush) 2 ml UNSCH PRN .XX 04/10/17 22:00 05/01/17 04:49 (NS Flush) 2 ml BID .XX 04/11/17 09:00 05/04/17 08:37 (Tylenol) 650 mg Q6H PRN PO 04/10/17 22:00 04/26/17 13:46 (Morphine Inj) 2 mg Q2H PRN IV 04/10/17 22:00 04/18/17 21:05 (Zofran Inj) 4 mg Q6H PRN IV 04/10/17 22:00 (Reglan Inj) 10 mg Q6H PRN IV 04/10/17 22:00 (Compazine Supp) 25 mg Q12H PRN RECTAL 04/10/17 22:00 Miscellaneous Information 1 Q361D XX 04/10/17 22:00 04/10/17 22:00 (Chlorhexidine 2% Cloth) 3 pack Taper DAILY@04 TOP 04/11/17 04:00 04/07/18 03:59 04/22/17 04:00 (Chlorhexidine 2% Cloth) 3 pack UNSCH PRN TOP 04/10/17 22:00 (Evelyn-Colace) 1 tab BID PO 04/11/17 09:00 05/04/17 08:37 (Milk Of Magnesia Liq) 30 ml Q12H PRN PO 04/10/17 22:00 (Senokot) 17.2 mg Q12H PRN PO 04/10/17 22:00 05/03/17 08:47 (Dulcolax Supp) 10 mg DAILY PRN RECTAL 04/10/17 22:00 (Lactulose Liq) 30 ml DAILY PRN PO 04/10/17 22:00 04/24/17 08:44 (Apresoline Inj) 20 mg Q4H PRN IV PUSH 04/12/17 08:15 04/16/17 17:38 (Norvasc) 10 mg DAILY PO 04/14/17 19:45 05/04/17 08:37 (Vasotec Inj) 1.25 mg Q6H PRN IV PUSH 04/15/17 01:15 04/27/17 17:29 (Nitroglycerin 2% Oint) 2 inch Q6HR PRN TOPICAL 04/15/17 06:00 04/16/17 12:34 (Pill Splitter) 1 ea UNSCH PRN OTHER 04/20/17 17:15 (Lopressor) 50 mg BID PO 04/24/17 21:00 05/04/17 08:37 (Catapres) 0.2 mg Q8HR PO 04/26/17 22:00 05/04/17 14:01 (Apresoline) 100 mg Q8HR PO 04/27/17 22:00 05/04/17 14:01 (Prinivil) 40 mg DAILY PO 04/28/17 09:00 05/04/17 08:37 (Pepcid) 20 mg BID NG 05/04/17 21:00 (Lac-Hydrin 12% Lotion) 1 applic BID TOPICAL 05/04/17 14:00 05/04/17 17:47 Urinary Catheter: Yes Assessment to: Continue Cruz insert reason: Prolonged Immobilization A/P Assessment and Plan Patient is a middle-aged female with unknown identity who was brought to the hospital on 04/10/2017 due to altered mental status, right sided weakness with a left-jacobs gaze. Upon presentation, she was found to have BP around 250/[address] elevation in V1-V3 and T wave inversions in V5 , V6. Cardene drip was initiated and a CT head was done with suspicion of ICH. Cardiology attributed EKG changes to probable ICH. CT head indeed confirmed ICH with intraventricular extension. 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 - No surgical intervention as per Dr. Wang, recommended to keep systolic BP around 120 - 150. Patient currently hypertensive. - Neurology following, appreciate input. CT head reviewed showing evolving left thalamic hematoma, no new hemorrhage. - H&H stable. -Consult GI for consideration of PEG placement. -Specialty bed ordered UTI with E Coli and Klebsiela - Patient asymptomatic, afebrile, vitals stable. Ceftriaxone started 04/22/17 , stop Ceftriaxone today 04/30/17. Repeat UA. Follow. Will reorder UA on 05/07, one week after antibiotics completed. Hypertension, currently elevated 166/103. - Currently on Amlodipine 10mg Q day, Clonidine 0.2mg Q8hrs, Hydralazine 100 mg PO Q8hrs, Metoprolol 50mg BID. - Increased Lisinopril from 20mg Q day to 40 mg Q day. BP more controlled. Will monitor. - Continue Hydralazine 100mg Q8hrs. Xeroderma -Lotion ordered for dry skin noted on her feet. DVT Prophylaxis: TEDs; pharmacological DVT prophylaxis held at this time due to pt's thalamic bleed. Will initiate once cleared by neuro. GI prophylaxis: Pepcid 20 mg q 24 hrs. Full code. Case discussed with RN (Camilla) and Dr. Fischer. Discharge Planning Discharge planning is in question until pt's identity is determined. Leonid Pederson Jr. GUS May 04, 2017 18:04
[2017-05-04] MEDS: FAMOTIDINE 20 MG TAB NG SCH (21:28)
[2017-05-05] VITALS: BP 133/83; PULSE 62; RESP 20; TEMP 98.5; O2SAT 100
[2017-05-05 04:00] VITALS: BP 156/80; PULSE 70; RESP 20; TEMP 98.1; O2SAT 100
[2017-05-05] MEDS: CHLORHEXIDINE GLUCONATE 2 % 1 PACK (2 CLOTHS) TOP SCH (04:00)
[2017-05-05] MEDS: cloNIDine HCL 0.2 MG TAB PO SCH ×3 (06:16→20:55)
[2017-05-05] MEDS: hydrALAZINE HCL 50 MG TAB PO SCH ×3 (06:16→20:56)
[2017-05-05 08:00] VITALS: BP 155/92; PULSE 61; RESP 18; O2SAT 98
[2017-05-05] MEDS: METOPROLOL TARTRATE 50 MG TAB PO SCH ×2 (08:30→20:56)
[2017-05-05] MEDS: LISINOPRIL 20 MG TAB PO SCH (08:30)
[2017-05-05] MEDS: FAMOTIDINE 20 MG TAB NG SCH ×2 (08:30→20:55)
[2017-05-05] MEDS: DOCUSATE SODIUM 50 MG/SENNA 8.6 MG TAB PO SCH ×2 (08:30→20:56)
[2017-05-05] MEDS: SODIUM CHLORIDE 0.9% FLUSH 10 ML FLUSH SCH ×2 (08:31→20:56)
[2017-05-05] MEDS: LACTIC ACID (AMMONIUM LACTATE) 12% LOTION 225 GM BTL TOPICAL SCH ×2 (08:32→20:57)
[2017-05-05 12:00] VITALS: BP 154/95; PULSE 69; RESP 19; O2SAT 100
--- NOTE | 2017-05-05 15:14 | HHI.PR ---
Subjective Remarks Follow up intracranial hemorrhage. Patient seen and examined today laying a bed, initially asleep but easily awakened. NAD Patient kept eyes closed during much of visit and does not track with eyes. She did not follow any commands. Per RN (Camilla), pt resting, no new complaints or acute changes overnight or since start of shift. Objective Vitals Vital Signs Date Time Temp Pulse Resp B/P Pulse Ox O2 Delivery O2 Flow Rate FiO2 05/05/17 12:00 69 19 154/95 100 05/05/17 08:00 61 18 155/92 98 05/05/17 04:00 98.1 70 20 156/80 100 05/05/17 00:00 98.5 62 20 133/83 100 05/04/17 20:00 98.4 64 22 158/84 99 05/04/17 16:15 98.2 68 18 128/68 98 I/O 05/04/17 05/04/17 05/04/17 05/05/17 05/05/17 05/05/17 07:00 15:00 23:00 07:00 15:00 23:00 Intake Total 1082 ml 1162 ml 533 ml 588 ml 540 ml Balance 1082 ml 1162 ml 533 ml 588 ml 540 ml Tube Feeding 1082 ml 1072 ml 413 ml 468 ml 450 ml Tube Irrigant 90 ml 90 ml Other 120 ml 120 ml # Voids 1 4 3 2 # Bowel Movements 1 2 2 1 Result Diagram: 05/03/17210005/03/172100 Objective Remarks GENERAL: pt laying a bed (angled up), sleeping yet easily awakened with eyes mostly closed, NAD. NG tube in place with food being delivered. SKIN: Warm and dry. Lotion noted to have been applied to both feet. HEAD: Normocephalic. EYES: No scleral icterus. No injection or drainage. CARDIOVASCULAR: Regular rate and rhythm without murmurs, gallops, or rubs. RESPIRATORY: Breath sounds equal bilaterally. No accessory muscle use. GASTROINTESTINAL: Abdomen soft, non-tender, nondistended. MUSCULOSKELETAL: No cyanosis, or edema. NEUROLOGICAL: Pt with left hand in soft restraint. Right hemiplegia continues. Procedures None. Medications and IVs Last Impressions Chest X-Ray 05/04/17 0000 Signed Impressions: Service Date/Time: April 05:29 - CONCLUSION: 1. Dobbhoff catheter tip in the distal stomach. 2. The lungs are clear. Phillip Moss MD Head CT 04/25/17 0000 Signed Impressions: Service Date/Time: Tuesday, April 25, 2017 18:02 - CONCLUSION: 1. Evolving left thalamic hematoma. No new hemorrhage. Adi Quarles MD Abdomen X-Ray 04/12/17 1538 Signed Impressions: Service Date/Time: Wednesday, April 12, 2017 17:29 - CONCLUSION: Nonobstructive bowel gas pattern. Suresh Zapata MD Neck CTA 04/10/17 0000 Signed Impressions: Service Date/Time: Monday, April 10, 2017 22:28 - CONCLUSION: The internal carotid arteries are normal bilaterally. No significant atherosclerotic disease is noted. Eliud Du MD Head CTA 04/10/17 0000 Signed Impressions: Service Date/Time: Monday, April 10, 2017 22:50 - CONCLUSION: Mild dilatation of the basilar tip without discrete aneurysm. Some narrowing of the left middle cerebral branch after the bifurcation. Prominent left thalamic hemorrhage. Eliud Du MD Urinary Catheter: Yes Assessment to: Continue Cruz insert reason: Prolonged Immobilization A/P Assessment and Plan Patient is a middle-aged female with unknown identity who was brought to the hospital on 04/10/2017 due to altered mental status, right sided weakness with a left-jacobs gaze. Upon presentation, she was found to have BP around 250/[address] elevation in V1-V3 and T wave inversions in V5 , V6. Cardene drip was initiated and a CT head was done with suspicion of ICH. Cardiology attributed EKG changes to probable ICH. CT head indeed confirmed ICH with intraventricular extension. 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 - No surgical intervention as per Dr. Wang, recommended to keep systolic BP around 120 - 150. Patient currently hypertensive. - Neurology following, appreciate input. CT head reviewed showing evolving left thalamic hematoma, no new hemorrhage. - H&H stable. -Consult GI for consideration of PEG placement. GI noted consent could not be obtained at present. NO PEG tube placement at this time. -Specialty bed ordered and delivered. UTI with E Coli and Klebsiela - Patient asymptomatic, afebrile, vitals stable. Ceftriaxone started 04/22/17 , stop Ceftriaxone today 04/30/17. Repeat UA. Follow. Will reorder UA on 05/07, one week after antibiotics completed. Hypertension, currently elevated 166/103. - Currently on Amlodipine 10mg Q day, Clonidine 0.2mg Q8hrs, Hydralazine 100 mg PO Q8hrs, Metoprolol 50mg BID. - Increased Lisinopril from 20mg Q day to 40 mg Q day. BP more controlled. Will monitor. - Continue Hydralazine 100mg Q8hrs. Xeroderma -Lotion ordered for dry skin noted on her feet. -Lotion applied to both feet. DVT Prophylaxis: TEDs; pharmacological DVT prophylaxis held at this time due to pt's thalamic bleed. Will initiate once cleared by neuro. GI prophylaxis: Pepcid 20 mg q 24 hrs. Full code. Case discussed with RN (Camilla) and Dr. Fischer. Discharge Planning Discharge planning is in question until pt's identity is determined. Leonid Pederson Jr. GUS May 05, 2017 15:14
--- NOTE | 2017-05-05 15:56 | HHI.PR ---
Review/Management Diagnosis left thalamic hemorrhage with intraventricular extension,--stable Plan continue BP control Diagnosis/Plan: Subjective Subjective Comments No acute events reported Active Medications Current Medications Medications (Trade) Dose Ordered Sig/Reymundo Route Start Time Stop Time Status Last Admin (NS Flush) 2 ml UNSCH PRN .XX 04/10/17 22:00 05/01/17 04:49 (NS Flush) 2 ml BID .XX 04/11/17 09:00 05/05/17 08:31 (Tylenol) 650 mg Q6H PRN PO 04/10/17 22:00 04/26/17 13:46 (Morphine Inj) 2 mg Q2H PRN IV 04/10/17 22:00 04/18/17 21:05 (Zofran Inj) 4 mg Q6H PRN IV 04/10/17 22:00 (Reglan Inj) 10 mg Q6H PRN IV 04/10/17 22:00 (Compazine Supp) 25 mg Q12H PRN RECTAL 04/10/17 22:00 Miscellaneous Information 1 Q361D XX 04/10/17 22:00 04/10/17 22:00 (Chlorhexidine 2% Cloth) Taper DAILY@04 TOP 04/11/17 04:00 04/07/18 03:59 04/22/17 04:00 (Chlorhexidine 2% Cloth) 3 pack UNSCH PRN TOP 04/10/17 22:00 (Evelyn-Colace) 1 tab BID PO 04/11/17 09:00 05/04/17 21:28 (Milk Of Magnesia Liq) 30 ml Q12H PRN PO 04/10/17 22:00 (Senokot) 17.2 mg Q12H PRN PO 04/10/17 22:00 05/03/17 08:47 (Dulcolax Supp) 10 mg DAILY PRN RECTAL 04/10/17 22:00 (Lactulose Liq) 30 ml DAILY PRN PO 04/10/17 22:00 04/24/17 08:44 (Apresoline Inj) 20 mg Q4H PRN IV PUSH 04/12/17 08:15 04/16/17 17:38 (Norvasc) 10 mg DAILY PO 04/14/17 19:45 05/05/17 08:30 (Vasotec Inj) 1.25 mg Q6H PRN IV PUSH 04/15/17 01:15 04/27/17 17:29 (Nitroglycerin 2% Oint) 2 inch Q6HR PRN TOPICAL 04/15/17 06:00 04/16/17 12:34 (Pill Splitter) 1 ea UNSCH PRN OTHER 04/20/17 17:15 (Lopressor) 50 mg BID PO 04/24/17 21:00 05/05/17 08:30 (Catapres) 0.2 mg Q8HR PO 04/26/17 22:00 05/05/17 13:05 (Apresoline) 100 mg Q8HR PO 04/27/17 22:00 05/05/17 13:05 (Prinivil) 40 mg DAILY PO 04/28/17 09:00 05/05/17 08:30 (Pepcid) 20 mg BID NG 05/04/17 21:00 05/05/17 08:30 (Lac-Hydrin 12% Lotion) 1 applic BID TOPICAL 05/04/17 14:00 05/05/17 08:32 Allergies Allergies Coded Allergies UNOBTAINABLE (Unverified04/10/17) Exam I&O / VS 05/04/17 05/04/17 05/05/17 15:00 23:00 07:00 Intake Total 1162 ml 533 ml 588 ml Balance 1162 ml 533 ml 588 ml Tube Feeding 1072 ml 413 ml 468 ml Tube Irrigant 90 ml Other 120 ml 120 ml # Voids 4 3 # Bowel Movements 2 2 Vital Signs Date Time Temp Pulse Resp B/P Pulse Ox O2 Delivery O2 Flow Rate FiO2 05/05/17 12:00 69 19 154/95 100 05/05/17 08:00 61 18 155/92 98 05/05/17 04:00 98.1 70 20 156/80 100 05/05/17 00:00 98.5 62 20 133/83 100 05/04/17 20:00 98.4 64 22 158/84 99 05/04/17 16:15 98.2 68 18 128/68 98 Exam Comments more alert and follows simple commands Pupils 2 mm symmetric and reactive with left gaze preference Accounts Receivable Collector voluntarily left but not right Jonathan Ravi PhD May 05, 2017 15:56
[2017-05-05 16:00] VITALS: BP 143/88; PULSE 60; RESP 18; TEMP 97.4; O2SAT 98
--- NOTE | 2017-05-05 16:50 | HHI.GIFU ---
Subjective Remarks Pt in restraints, pulling at tubes. Otherwise no change. Objective Vitals I&O Vital Signs Date Time Temp Pulse Resp B/P Pulse Ox O2 Delivery O2 Flow Rate FiO2 05/05/17 12:00 69 19 154/95 100 05/05/17 08:00 61 18 155/92 98 05/05/17 04:00 98.1 70 20 156/80 100 05/05/17 00:00 98.5 62 20 133/83 100 05/04/17 20:00 98.4 64 22 158/84 99 I/O 05/04/17 05/04/17 05/04/17 05/05/17 05/05/17 05/05/17 07:00 15:00 23:00 07:00 15:00 23:00 Intake Total 1082 ml 1162 ml 533 ml 588 ml 540 ml Balance 1082 ml 1162 ml 533 ml 588 ml 540 ml Tube Feeding 1082 ml 1072 ml 413 ml 468 ml 450 ml Tube Irrigant 90 ml 90 ml Other 120 ml 120 ml # Voids 1 4 3 2 # Bowel Movements 1 2 2 1 Physical Exam HEENT: Pupils round and reactive to light; normocephalic; atraumatic; no jaundice. Throat is clear. NECK: Neck is supple, no JVD, no lymphadenopathy. CHEST: Chest is clear to auscultation and percussion. CARDIAC: Regular rate and rhythm with no murmur gallop or rubs. ABDOMEN: Soft, nondistended, nontender; no hepatosplenomegaly; bowel sounds are present in all four quadrants. EXTREMITIES: No cyanosis SKIN: Normal; no rash; no jaundice. DESIGN COORDINATOR: Hemiparesis Assessment and Plan Plan ASSESSMENT: - Dysphagia, FEN. Pt unidentified [place] with right sided weakness and leftward gaze. 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 S/P neurosurgery evaluation--- > no surgical intervention and to keep systolic blood pressure around 120-150. ST following for severe oropharyngeal dysphagia and cognitive/speech deficits and recommended speech therapy orders and that she remain NPO. She currently has a dobhoff in place and is getting Jevity 1.5 at 60cc/hr as recommended by the warehouse delivery manager. GI has been consulted for PEG tube placement evaluation. Unfortunately, the patient's identity is not known and there is no next of kin. CM working on this, but has not been able to identify patient or next of kin as of this time. PLAN: - Cont. Jevity 1.5 at 60cc/hr via Dobhoff - Cont. ST - CM to continue to work on identifying patient/next of kin - Probably medically necessary to place PEG tube so patient does not need restraints. We can do on Monday. Christoph De Los Santos MD May 05, 2017 16:50
[2017-05-05 17:21] LABS: HEMOGLOBIN A1C 6.2 % (4.3-6.0)
[2017-05-05 20:00] VITALS: BP 137/83; PULSE 63; RESP 18; TEMP 97; O2SAT 99
[2017-05-06] VITALS: BP 142/94; PULSE 69; RESP 18; TEMP 97.8; O2SAT 99
[2017-05-06] MEDS: CHLORHEXIDINE GLUCONATE 2 % 1 PACK (2 CLOTHS) TOP SCH (04:00)
[2017-05-06 04:36] VITALS: BP 118/89; PULSE 65; RESP 18; TEMP 97.6; O2SAT 97
[2017-05-06] MEDS: cloNIDine HCL 0.2 MG TAB PO SCH ×3 (05:02→22:56)
[2017-05-06] MEDS: hydrALAZINE HCL 50 MG TAB PO SCH ×3 (05:02→22:57)
[2017-05-06 07:41] VITALS: BP 129/76; PULSE 62; RESP 17; TEMP 96.6; O2SAT 98
[2017-05-06] MEDS: LACTIC ACID (AMMONIUM LACTATE) 12% LOTION 225 GM BTL TOPICAL SCH ×2 (09:00→22:58)
[2017-05-06] MEDS: SODIUM CHLORIDE 0.9% FLUSH 10 ML FLUSH SCH ×2 (09:00→22:56)
[2017-05-06] MEDS: DOCUSATE SODIUM 50 MG/SENNA 8.6 MG TAB PO SCH ×2 (09:19→21:00)
[2017-05-06] MEDS: FAMOTIDINE 20 MG TAB NG SCH ×2 (09:19→22:57)
[2017-05-06] MEDS: METOPROLOL TARTRATE 50 MG TAB PO SCH ×2 (09:19→22:56)
[2017-05-06] MEDS: LISINOPRIL 20 MG TAB PO SCH (09:19)
--- NOTE | 2017-05-06 10:23 | HHI.GIFU ---
Subjective Remarks No issues overnight per nursing staff. Pt tolerating tube feeds Left wrist in restraints (Loni Claire) Objective Vitals I&O Vital Signs Date Time Temp Pulse Resp B/P Pulse Ox O2 Delivery O2 Flow Rate FiO2 05/06/17 07:41 96.6 62 17 129/76 98 05/06/17 04:36 97.6 65 18 118/89 97 05/06/17 00:00 97.8 69 18 142/94 99 05/05/17 20:00 97.0 63 18 137/83 99 05/05/17 16:00 97.4 60 18 143/88 98 05/05/17 12:00 69 19 154/95 100 I/O 05/05/17 05/05/17 05/05/17 05/06/17 05/06/17 05/06/17 07:00 15:00 23:00 07:00 15:00 23:00 Intake Total 588 ml 540 ml 471 ml 584 ml Balance 588 ml 540 ml 471 ml 584 ml Tube Feeding 468 ml 450 ml 351 ml 464 ml Tube Irrigant 90 ml Other 120 ml 120 ml 120 ml # Voids 3 2 1 2 # Bowel Movements 2 1 1 Imaging Last Impressions Chest X-Ray 05/04/17 0000 Signed Impressions: Service Date/Time: April 05:29 - CONCLUSION: 1. Dobbhoff catheter tip in the distal stomach. 2. The lungs are clear. Phillip Moss MD Head CT 04/25/17 0000 Signed Impressions: Service Date/Time: Tuesday, April 25, 2017 18:02 - CONCLUSION: 1. Evolving left thalamic hematoma. No new hemorrhage. Adi Quarles MD Abdomen X-Ray 04/12/17 1538 Signed Impressions: Service Date/Time: Wednesday, April 12, 2017 17:29 - CONCLUSION: Nonobstructive bowel gas pattern. Suresh Zapata MD Neck CTA 04/10/17 0000 Signed Impressions: Service Date/Time: Monday, April 10, 2017 22:28 - CONCLUSION: The internal carotid arteries are normal bilaterally. No significant atherosclerotic disease is noted. Eliud Du MD Head CTA 04/10/17 0000 Signed Impressions: Service Date/Time: Monday, April 10, 2017 22:50 - CONCLUSION: Mild dilatation of the basilar tip without discrete aneurysm. Some narrowing of the left middle cerebral branch after the bifurcation. Prominent left thalamic hemorrhage. 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 Pt unidentified [place] that [place] in park with right sided weakness and leftward gaze. 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 S/P neurosurgery evaluation--- > no surgical intervention and to keep systolic blood pressure around 120-150. ST following for severe oropharyngeal dysphagia and cognitive/speech deficits and recommended speech therapy orders and that she remain NPO. She currently has a dobhoff in place and is getting Jevity 1.5 at 60cc/hr as recommended by the pressure testing technician. GI has been consulted for PEG tube placement evaluation. Unfortunately, the patient's identity is not known and there is no next of kin. CM working on this, but has not been able to identify patient or next of kin as of this time. PLAN: - Cont. Jevity 1.5 at 60cc/hr via Dobhoff - Cont. ST - CM to continue to work on identifying patient/next of kin - Probably medically necessary to place PEG tube on Monday if unable to obtain consent. - NPO after MN Monday - Ancef 1 gram IV prior to PEG placement. - Supportive care - The pt was seen and examined by myself and Dr. Baldwin, this note was written on his behalf. (Loni Claire) Physician Comments Patient seen and examined Agree with above Continue with current supportive care Monitor labs Will plan for PEG placement on Monday (Bobby Baldwin MD) Loni Claire May 06, 2017 10:23 Bobby Baldwin MD May 06, 2017 20:08
[2017-05-06 11:56] VITALS: BP 143/84; PULSE 60; RESP 18; TEMP 98.1; O2SAT 100
[2017-05-06 16:00] VITALS: BP 122/78; PULSE 68; RESP 18; TEMP 99; O2SAT 98
--- NOTE | 2017-05-06 17:17 | HHI.PR ---
Subjective Remarks Follow up intracranial hemorrhage. Patient seen and examined today laying a bed, initially asleep but easily awakened. NAD Patient kept eyes closed during much of visit and does not track with eyes. She followed command to squeeze her left hand. Per RN (Kierra), pt resting, no new complaints or acute changes overnight or since start of shift. Objective Vitals Vital Signs Date Time Temp Pulse Resp B/P Pulse Ox O2 Delivery O2 Flow Rate FiO2 05/06/17 16:00 99.0 68 18 122/78 98 05/06/17 11:56 98.1 60 18 143/84 100 05/06/17 07:41 96.6 62 17 129/76 98 05/06/17 04:36 97.6 65 18 118/89 97 05/06/17 00:00 97.8 69 18 142/94 99 05/05/17 20:00 97.0 63 18 137/83 99 I/O 05/05/17 05/05/17 05/05/17 05/06/17 05/06/17 05/06/17 07:00 15:00 23:00 07:00 15:00 23:00 Intake Total 588 ml 540 ml 471 ml 584 ml Balance 588 ml 540 ml 471 ml 584 ml Tube Feeding 468 ml 450 ml 351 ml 464 ml Tube Irrigant 90 ml Other 120 ml 120 ml 120 ml # Voids 3 2 1 2 2 # Bowel Movements 2 1 1 Result Diagram: 05/03/17210005/03/172100 Objective Remarks GENERAL: pt laying a bed (angled up), sleeping yet easily awakened with eyes mostly closed, NAD. NG tube in place with food being delivered. SKIN: Warm and dry. Lotion noted to have been applied to both feet. HEAD: Normocephalic. EYES: No scleral icterus. No injection or drainage. CARDIOVASCULAR: Regular rate and rhythm without murmurs, gallops, or rubs. RESPIRATORY: Breath sounds equal bilaterally. No accessory muscle use. GASTROINTESTINAL: Abdomen soft, non-tender, nondistended. MUSCULOSKELETAL: No cyanosis, or edema. NEUROLOGICAL: Pt with left hand in soft restraint. Right hemiplegia continues. Procedures None. Medications and IVs Current Medications Medications (Trade) Dose Ordered Sig/Reymundo Route Start Time Stop Time Status Last Admin (NS Flush) 2 ml UNSCH PRN .XX 6/5/17 22:00 05/01/17 04:49 (NS Flush) 2 ml BID .XX 04/11/17 09:00 05/06/17 09:00 (Tylenol) 650 mg Q6H PRN PO 04/10/17 22:00 04/26/17 13:46 (Morphine Inj) 2 mg Q2H PRN IV 04/10/17 22:00 04/18/17 21:05 (Zofran Inj) 4 mg Q6H PRN IV 04/10/17 22:00 (Reglan Inj) 10 mg Q6H PRN IV 04/10/17 22:00 (Compazine Supp) 25 mg Q12H PRN RECTAL 04/10/17 22:00 Miscellaneous Information 1 Q361D XX 04/10/17 22:00 04/10/17 22:00 (Chlorhexidine 2% Cloth) Taper DAILY@04 TOP 04/11/17 04:00 04/07/18 03:59 04/22/17 04:00 (Chlorhexidine 2% Cloth) 3 pack UNSCH PRN TOP 04/10/17 22:00 (Evelyn-Colace) 1 tab BID PO 04/11/17 09:00 05/06/17 09:19 (Milk Of Magnesia Liq) 30 ml Q12H PRN PO 04/10/17 22:00 (Senokot) 17.2 mg Q12H PRN PO 04/10/17 22:00 05/03/17 08:47 (Dulcolax Supp) 10 mg DAILY PRN RECTAL 04/10/17 22:00 (Lactulose Liq) 30 ml DAILY PRN PO 04/10/17 22:00 04/24/17 08:44 (Apresoline Inj) 20 mg Q4H PRN IV PUSH 04/12/17 08:15 04/16/17 17:38 (Norvasc) 10 mg DAILY PO 04/14/17 19:45 05/06/17 09:19 (Vasotec Inj) 1.25 mg Q6H PRN IV PUSH 04/15/17 01:15 04/27/17 17:29 (Nitroglycerin 2% Oint) 2 inch Q6HR PRN TOPICAL 04/15/17 06:00 04/16/17 12:34 (Pill Splitter) 1 ea UNSCH PRN OTHER 04/20/17 17:15 (Lopressor) 50 mg BID PO 04/24/17 21:00 05/06/17 09:19 (Catapres) 0.2 mg Q8HR PO 04/26/17 22:00 05/06/17 14:09 (Apresoline) 100 mg Q8HR PO 04/27/17 22:00 05/06/17 14:09 (Prinivil) 40 mg DAILY PO 04/28/17 09:00 05/06/17 09:19 (Pepcid) 20 mg BID NG 05/04/17 21:00 05/06/17 09:19 (Lac-Hydrin 12% Lotion) 1 applic BID TOPICAL 05/04/17 14:00 05/06/17 09:00 Urinary Catheter: Yes Assessment to: Continue Cruz insert reason: Prolonged Immobilization A/P Assessment and Plan Patient is a middle-aged female with unknown identity who was brought to the hospital on 04/10/2017 due to altered mental status, right sided weakness with a left-jacobs gaze. Upon presentation, she was found to have BP around 250/[address] elevation in V1-V3 and T wave inversions in V5 , V6. Cardene drip was initiated and a CT head was done with suspicion of ICH. Cardiology attributed EKG changes to probable ICH. CT head indeed confirmed ICH with intraventricular extension. 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 - No surgical intervention as per Dr. Wang, recommended to keep systolic BP around 120 - 150. Patient currently hypertensive. - Neurology following, appreciate input. CT head reviewed showing evolving left thalamic hematoma, no new hemorrhage. - H&H stable. -Consult GI for consideration of PEG placement. Per Dr. De Los Santos;s note of , PEG tube to be placed on Monday. -Specialty bed ordered and delivered. UTI with E Coli and Klebsiela - Patient asymptomatic, afebrile, vitals stable. Ceftriaxone started 04/22/17 , stop Ceftriaxone today 04/30/17. Repeat UA. Follow. Will reorder UA on 05/07, one week after antibiotics completed. Hypertension, currently elevated 166/103. - Currently on Amlodipine 10mg Q day, Clonidine 0.2mg Q8hrs, Hydralazine 100 mg PO Q8hrs, Metoprolol 50mg BID. - Increased Lisinopril from 20mg Q day to 40 mg Q day. BP more controlled. Will monitor. - Continue Hydralazine 100mg Q8hrs. Xeroderma -Lotion ordered for dry skin noted on her feet. -Lotion applied to both feet. DVT Prophylaxis: TEDs; pharmacological DVT prophylaxis held at this time due to pt's thalamic bleed. Will initiate once cleared by neuro. GI prophylaxis: Pepcid 20 mg q 24 hrs. Full code. Case discussed with RN (Kierra) and Dr. Fischer. Discharge Planning Discharge planning is in question until pt's identity is determined. Leonid Pederson Jr. GUS May 06, 2017 17:17
[2017-05-06 20:15] VITALS: BP 118/69; PULSE 80; RESP 19; TEMP 98.8; O2SAT 96
[2017-05-07 00:30] VITALS: BP 128/70; PULSE 67; RESP 20; TEMP 97.9; O2SAT 97
[2017-05-07] MEDS: CHLORHEXIDINE GLUCONATE 2 % 1 PACK (2 CLOTHS) TOP SCH (04:00)
[2017-05-07 05:30] VITALS: BP 130/65; PULSE 88; RESP 21; TEMP 98.8; O2SAT 98
[2017-05-07] MEDS: hydrALAZINE HCL 50 MG TAB PO SCH ×3 (05:59→22:14)
[2017-05-07] MEDS: cloNIDine HCL 0.2 MG TAB PO SCH ×3 (05:59→22:14)
[2017-05-07 08:00] VITALS: BP 152/92; PULSE 67; RESP 20; TEMP 97.5; O2SAT 97
[2017-05-07] MEDS: FAMOTIDINE 20 MG TAB NG SCH ×2 (09:00→22:14)
[2017-05-07] MEDS: LACTIC ACID (AMMONIUM LACTATE) 12% LOTION 225 GM BTL TOPICAL SCH ×2 (09:00→22:15)
[2017-05-07] MEDS: SODIUM CHLORIDE 0.9% FLUSH 10 ML FLUSH SCH ×2 (09:00→22:13)
[2017-05-07] MEDS: DOCUSATE SODIUM 50 MG/SENNA 8.6 MG TAB PO SCH ×2 (09:00→21:00)
[2017-05-07] MEDS: METOPROLOL TARTRATE 50 MG TAB PO SCH ×2 (09:12→22:14)
[2017-05-07] MEDS: LISINOPRIL 20 MG TAB PO SCH (09:12)
[2017-05-07 12:01] VITALS: BP 161/93; PULSE 62; RESP 20; TEMP 97.9; O2SAT 96
[2017-05-07 15:50] VITALS: BP 147/81; PULSE 69; RESP 18; TEMP 97.2; O2SAT 95
--- NOTE | 2017-05-07 16:12 | HHI.PR ---
Subjective Remarks Follow up intracranial hemorrhage. Patient seen and examined today laying a bed, initially asleep but easily awakened. NAD Patient kept eyes closed during much of visit and does not track with eyes. She followed command to squeeze her left hand. Did not follow command to smile of give a thumb's up sign. Per RN Tashi), pt resting, no new complaints or acute changes overnight or since start of shift. RN stated pt is to undergo PEG placement on Monday (). RN stated pt seemed to be following more commands today. Objective Vitals Vital Signs Date Time Temp Pulse Resp B/P Pulse Ox O2 Delivery O2 Flow Rate FiO2 05/07/17 15:50 97.2 69 18 147/81 95 05/07/17 12:01 97.9 62 20 161/93 96 05/07/17 08:00 97.5 67 20 152/92 97 05/07/17 05:30 98.8 88 21 130/65 98 05/07/17 00:30 97.9 67 20 128/70 97 05/06/17 20:15 98.8 80 19 118/69 96 I/O 05/06/17 05/06/17 05/06/17 05/07/17 05/07/17 05/07/17 07:00 15:00 23:00 07:00 15:00 23:00 Intake Total 584 ml 0 ml 0 ml Balance 584 ml 0 ml 0 ml Intake Oral 0 ml 0 ml Tube Feeding 464 ml Other 120 ml # Voids 2 2 0 6 4 # Bowel Movements 1 0 0 Result Diagram: 05/03/17210005/03/172100 Objective Remarks GENERAL: pt laying a bed, sleeping yet easily awakened with eyes mostly closed, NAD. NG tube in place with food being delivered. SKIN: Warm and dry. Lotion noted to have been applied to both feet. HEAD: Normocephalic. EYES: No scleral icterus. No injection or drainage. CARDIOVASCULAR: Regular rate and rhythm without murmurs, gallops, or rubs. RESPIRATORY: Breath sounds equal bilaterally. No accessory muscle use. GASTROINTESTINAL: Abdomen soft, non-tender, nondistended. MUSCULOSKELETAL: No cyanosis, or edema. NEUROLOGICAL: Pt with left hand in soft restraint. Right hemiplegia continues. Following limited commands. Procedures None. Medications and IVs Current Medications Medications (Trade) Dose Ordered Sig/Reymundo Route Start Time Stop Time Status Last Admin (NS Flush) 2 ml UNSCH PRN .XX 04/10/17 22:00 05/01/17 04:49 (NS Flush) 2 ml BID .XX 04/11/17 09:00 05/07/17 09:00 (Tylenol) 650 mg Q6H PRN PO 04/10/17 22:00 04/26/17 13:46 (Morphine Inj) 2 mg Q2H PRN IV 04/10/17 22:00 04/18/17 21:05 (Zofran Inj) 4 mg Q6H PRN IV 04/10/17 22:00 (Reglan Inj) 10 mg Q6H PRN IV 04/10/17 22:00 (Compazine Supp) 25 mg Q12H PRN RECTAL 04/10/17 22:00 Miscellaneous Information 1 Q361D XX 04/10/17 22:00 04/10/17 22:00 (Chlorhexidine 2% Cloth) Taper DAILY@04 TOP 04/11/17 04:00 04/07/18 03:59 04/22/17 04:00 (Chlorhexidine 2% Cloth) 3 pack UNSCH PRN TOP 04/10/17 22:00 (Evelyn-Colace) 1 tab BID PO 04/11/17 09:00 05/06/17 09:19 (Milk Of Magnesia Liq) 30 ml Q12H PRN PO 04/10/17 22:00 (Senokot) 17.2 mg Q12H PRN PO 04/10/17 22:00 05/03/17 08:47 (Dulcolax Supp) 10 mg DAILY PRN RECTAL 04/10/17 22:00 (Lactulose Liq) 30 ml DAILY PRN PO 04/10/17 22:00 04/24/17 08:44 (Apresoline Inj) 20 mg Q4H PRN IV PUSH 04/12/17 08:15 04/16/17 17:38 (Norvasc) 10 mg DAILY PO 04/14/17 19:45 05/07/17 09:12 (Vasotec Inj) 1.25 mg Q6H PRN IV PUSH 04/15/17 01:15 04/27/17 17:29 (Nitroglycerin 2% Oint) 2 inch Q6HR PRN TOPICAL 04/15/17 06:00 04/16/17 12:34 (Pill Splitter) 1 ea UNSCH PRN OTHER 04/20/17 17:15 (Lopressor) 50 mg BID PO 04/24/17 21:00 05/07/17 09:12 (Catapres) 0.2 mg Q8HR PO 04/26/17 22:00 05/07/17 13:22 (Apresoline) 100 mg Q8HR PO 04/27/17 22:00 05/07/17 13:23 (Prinivil) 40 mg DAILY PO 04/28/17 09:00 05/07/17 09:12 (Pepcid) 20 mg BID NG 05/04/17 21:00 05/07/17 09:00 (Lac-Hydrin 12% Lotion) 1 applic BID TOPICAL 05/04/17 14:00 05/07/17 09:00 Urinary Catheter: Yes Assessment to: Continue Cruz insert reason: Prolonged Immobilization A/P Assessment and Plan Patient is a middle-aged female with unknown identity who was brought to the hospital on 04/10/2017 due to altered mental status, right sided weakness with a left-jacobs gaze. Upon presentation, she was found to have BP around 250/[address] elevation in V1-V3 and T wave inversions in V5 , V6. Cardene drip was initiated and a CT head was done with suspicion of ICH. Cardiology attributed EKG changes to probable ICH. CT head indeed confirmed ICH with intraventricular extension. 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 - No surgical intervention as per Dr. Wang, recommended to keep systolic BP around 120 - 150. Patient currently hypertensive. - Neurology following, appreciate input. CT head reviewed showing evolving left thalamic hematoma, no new hemorrhage. - H&H stable. -Consult GI for consideration of PEG placement. Per Dr. De Los Santos's note of , PEG tube to be placed on Monday. NPO order noted. -Specialty bed ordered and delivered. UTI with E Coli and Klebsiela - Patient asymptomatic, afebrile, vitals stable. Ceftriaxone started 04/22/17 , stop Ceftriaxone today 04/30/17. Repeat UA. Follow. Will reorder UA on 05/07, one week after antibiotics completed. Hypertension, currently elevated 166/103. - Currently on Amlodipine 10mg Q day, Clonidine 0.2mg Q8hrs, Hydralazine 100 mg PO Q8hrs, Metoprolol 50mg BID. - Increased Lisinopril from 20mg Q day to 40 mg Q day. BP more controlled. Will monitor. - Continue Hydralazine 100mg Q8hrs. Xeroderma -Lotion ordered for dry skin noted on her feet. -Lotion applied to both feet. DVT Prophylaxis: TEDs; pharmacological DVT prophylaxis held at this time due to pt's thalamic bleed. Will initiate once cleared by neuro. GI prophylaxis: Pepcid 20 mg q 24 hrs. Full code. Case discussed with RN (Kierra) and Dr. Fischer. Discharge Planning Discharge planning is in question until pt's identity is determined. Leonid Pederson Jr. May 07, 2017 16:12
[2017-05-07 21:45] VITALS: BP 118/88; PULSE 80; RESP 20; TEMP 97.9; O2SAT 96
[2017-05-08 01:30] VITALS: BP 115/80; PULSE 69; RESP 19; TEMP 98.1; O2SAT 97
[2017-05-08] MEDS: CHLORHEXIDINE GLUCONATE 2 % 1 PACK (2 CLOTHS) TOP SCH (04:00)
[2017-05-08 04:30] VITALS: BP 164/88; PULSE 69; RESP 18; TEMP 98.8; O2SAT 97
[2017-05-08] MEDS: hydrALAZINE HCL 50 MG TAB PO SCH ×3 (05:37→21:29)
[2017-05-08] MEDS: cloNIDine HCL 0.2 MG TAB PO SCH ×3 (05:37→21:29)
--- NOTE | 2017-05-08 08:16 | HHI.PR ---
Subjective Remarks Follow up intracranial hemorrhage. Patient seen and examined today. Lying in bed in no apparent distress. Patient is nonverbal. Opens eyes to vocalization. Does not track with eyes, does not follow commands. Spoke to bedside RN, no acute events overnight. Afebrile. Plan for IR placement of PEG tube today. Objective Vitals Vital Signs Date Time Temp Pulse Resp B/P Pulse Ox O2 Delivery O2 Flow Rate FiO2 05/08/17 04:30 98.8 69 18 164/88 97 05/08/17 01:30 98.1 69 19 115/80 97 05/07/17 21:45 97.9 80 20 118/88 96 05/07/17 15:50 97.2 69 18 147/81 95 05/07/17 12:01 97.9 62 20 161/93 96 I/O 05/07/17 05/07/17 05/07/17 05/08/17 05/08/17 05/08/17 07:00 15:00 23:00 07:00 15:00 23:00 Intake Total 0 ml 0 ml 0 ml Balance 0 ml 0 ml 0 ml Intake Oral 0 ml 0 ml 0 ml # Voids 6 4 1 6 # Bowel Movements 0 0 0 Imaging Last Impressions Chest X-Ray 05/04/17 0000 Signed Impressions: Service Date/Time: April 05:29 - CONCLUSION: 1. Dobbhoff catheter tip in the distal stomach. 2. The lungs are clear. Phillip Moss MD Head CT 04/25/17 0000 Signed Impressions: Service Date/Time: Tuesday, April 25, 2017 18:02 - CONCLUSION: 1. Evolving left thalamic hematoma. No new hemorrhage. Adi Quarles MD Abdomen X-Ray 04/12/17 1538 Signed Impressions: Service Date/Time: Wednesday, April 12, 2017 17:29 - CONCLUSION: Nonobstructive bowel gas pattern. Suresh Zapata MD Neck CTA 04/10/17 0000 Signed Impressions: Service Date/Time: Monday, April 10, 2017 22:28 - CONCLUSION: The internal carotid arteries are normal bilaterally. No significant atherosclerotic disease is noted. Eliud Du MD Head CTA 04/10/17 0000 Signed Impressions: Service Date/Time: Monday, April 10, 2017 22:50 - CONCLUSION: Mild dilatation of the basilar tip without discrete aneurysm. Some narrowing of the left middle cerebral branch after the bifurcation. Prominent left thalamic hemorrhage. Eliud Du MD Objective Remarks GENERAL: Well-developed patient. Nonverbal, lying in bed in nad. SKIN: Warm and dry. HEAD: Normocephalic. NG tube in place, TF continued. EYES: No scleral icterus. No injection or drainage. NECK: trachea midline. No JVD. CARDIOVASCULAR: Regular rate and rhythm. 3/6 blowing murmur noted. RESPIRATORY: Breath sounds equal bilaterally. No accessory muscle use. GASTROINTESTINAL: Abdomen soft, non-tender, nondistended. MUSCULOSKELETAL: No cyanosis, or edema. Does not follow commands today. Right upper and lower extremities flaccid. Procedures None. Urinary Catheter: No Vascular Central Line Catheter: No A/P Assessment and Plan Patient is a middle-aged female with unknown identity who was brought to the hospital on 04/10/2017 due to altered mental status, right sided weakness with a left-jacobs gaze. Upon presentation, she was found to have BP around 250/[address] elevation in V1-V3 and T wave inversions in V5 , V6. Cardene drip was initiated and a CT head was done with suspicion of ICH. Cardiology attributed EKG changes to probable ICH. CT head indeed confirmed ICH with intraventricular extension. 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 - No surgical intervention as per Dr. Wang, recommended to keep systolic BP around 120 - 150. Patient currently hypertensive. - Neurology following, appreciate input. CT head reviewed showing evolving left thalamic hematoma, no new hemorrhage. - H/H stable. Dysphagia - GI following patient, plan for PEG Tube placement today 05/08/17 by IR. UTI with E Coli and Klebsiella, resolved. - Patient asymptomatic, afebrile, vitals stable. Ceftriaxone started 04/22/17 , stopped 04/30/17. Repeat UA negative. Hypertension, chronic: controlled. - Currently on Amlodipine 10mg Qday, Clonidine 0.2mg Q8hrs, Hydralazine 100 mg PO Q8hrs, Metoprolol 50mg BID. - Continue Lisinopril from 20mg Qday to 40 mgQday. - Continue Hydralazine 100mg Q8hrs. - Monitor BP. 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 GI Prophylaxis: Pepcid. DVT Prophylaxis: TEDs. Pharmacological DVT prophylaxis held at this time due to pt's thalamic bleed. Will initiate once cleared by neuro. Full code. Discharge Planning Last CM note: 05/02/17 3:00pm: CM s/w Yoko from [facility] this morning who suggestd that CM contact [employer] to finger print pt for ID as she is unable to do so. CM contacted [employer] and was infromed that they are not able to do so unless it is next of kin identification or criminal charges. Veena Calvillo May 08, 2017 08:16
[2017-05-08 08:22] VITALS: BP 125/85; PULSE 62; RESP 18; TEMP 97.7; O2SAT 95
[2017-05-08 08:55] LABS: PROTHROMBIN TIME - PATIENT 11.4 SEC (9.8-11.6)
[2017-05-08] MEDS: SODIUM CHLORIDE 0.9% FLUSH 10 ML FLUSH SCH ×2 (08:56→21:31)
[2017-05-08] MEDS: LISINOPRIL 20 MG TAB PO SCH (08:56)
[2017-05-08] MEDS: METOPROLOL TARTRATE 50 MG TAB PO SCH ×2 (08:56→21:29)
[2017-05-08] MEDS: DOCUSATE SODIUM 50 MG/SENNA 8.6 MG TAB PO SCH ×2 (08:56→21:29)
[2017-05-08] MEDS: LACTIC ACID (AMMONIUM LACTATE) 12% LOTION 225 GM BTL TOPICAL SCH ×2 (08:57→21:32)
[2017-05-08] MEDS: FAMOTIDINE 20 MG TAB NG SCH ×2 (08:57→21:29)
[2017-05-08 12:00] VITALS: BP 133/79; PULSE 64; RESP 18; TEMP 98.1; O2SAT 97
[2017-05-08] MEDS ORDERED: ceFAZolin INJ 1,000 MG VIAL IV ONE (15:00)
[2017-05-08] MEDS ORDERED: PROPOFOL 200 MG/20 ML AMP IV PUSH ONE (15:27)
--- NOTE | 2017-05-08 15:41 | HHI.GIFU ---
Subjective Remarks Immediate postop note: EGD with PEG placement with biopsy Indication: Stroke, unable to take PO. Dysphagia Medication: MAC Findings: Esophagus: moderate tube related GERD. Stomach: mild chronic gastritis. Biopsy taken from antrum Duodenum: normal PEG tube placed in usual way without apparent complication. Excellent transillumination 3 inches above the umbilicus. Excellent indentation. Objective Vitals I&O Vital Signs Date Time Temp Pulse Resp B/P Pulse Ox O2 Delivery O2 Flow Rate FiO2 05/08/17 12:00 98.1 64 18 133/79 97 05/08/17 08:22 97.7 62 18 125/85 95 05/08/17 04:30 98.8 69 18 164/88 97 05/08/17 01:30 98.1 69 19 115/80 97 05/07/17 21:45 97.9 80 20 118/88 96 05/07/17 15:50 97.2 69 18 147/81 95 I/O 05/07/17 05/07/17 05/07/17 05/08/17 05/08/17 05/08/17 07:00 15:00 23:00 07:00 15:00 23:00 Intake Total 0 ml 0 ml 0 ml Balance 0 ml 0 ml 0 ml Intake Oral 0 ml 0 ml 0 ml # Voids 6 4 1 6 # Bowel Movements 0 0 0 Laboratory Laboratory Tests Test 05/08/17 07:53 Prothrombin Time 11.4 Prothromb Time International 1.0 Ratio Physical Exam GENERAL: NAD, Awake ENT: Pupils 2 mm symmetric and reactive with left gaze preference NECK: Neck is supple CHEST: CTA CARDIAC: Regular ABDOMEN: +BS, soft, nondistended, nontender EXTREMITIES: No cyanosis 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 Pt unidentified [place] with right sided weakness and leftward gaze. 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 S/P neurosurgery evaluation--- > no surgical intervention and to keep systolic blood pressure around 120-150. ST following for severe oropharyngeal dysphagia and cognitive/speech deficits and recommended speech therapy orders and that she remain NPO. She currently has a dobhoff in place and is getting Jevity 1.5 at 60cc/hr as recommended by the farm crew leader. GI has been consulted for PEG tube placement evaluation. Unfortunately, the patient's identity is not known and there is no next of kin. CM working on this, but has not been able to identify patient or next of kin as of this time. - Placement of PEG is life saving in her situation because it allows correction nutritional support with minimum complications. - EGD with PEG tube placement and biopsy of antrum performed today. 05/08/17 Showed chronic gastritis consistent with H Pylori. Await biopsy result. PLAN: - No tube feeding for 24 hours then resume tube feeding at low rate and increase as tolerated. - OK to use PEG tube for medications and flush with water. - Cont. ST - CM to continue to work on identifying patient/next of kin - Supportive care Christoph De Los Santos MD May 08, 2017 15:40
[2017-05-08 20:21] VITALS: BP 156/85; PULSE 67; RESP 18; TEMP 97.7; O2SAT 95
[2017-05-08] MEDS: SENNOSIDES 8.6 MG TAB PO PRN (21:29)
[2017-05-09 00:41] VITALS: BP 115/65; PULSE 65; RESP 16; TEMP 97.2; O2SAT 95
[2017-05-09] MEDS: CHLORHEXIDINE GLUCONATE 2 % 1 PACK (2 CLOTHS) TOP SCH (04:00)
[2017-05-09 04:43] VITALS: BP 147/79; PULSE 58; RESP 16; TEMP 98.9; O2SAT 97
[2017-05-09] MEDS: cloNIDine HCL 0.2 MG TAB PO SCH ×3 (05:23→21:49)
[2017-05-09] MEDS: hydrALAZINE HCL 50 MG TAB PO SCH ×3 (05:23→21:49)
[2017-05-09 08:00] VITALS: BP 120/72; PULSE 75; RESP 18; TEMP 98.6; O2SAT 96
[2017-05-09] MEDS: DOCUSATE SODIUM 50 MG/SENNA 8.6 MG TAB PO SCH ×2 (09:00→21:00)
[2017-05-09] MEDS: METOPROLOL TARTRATE 50 MG TAB PO SCH ×2 (09:00→21:33)
[2017-05-09] MEDS: LISINOPRIL 20 MG TAB PO SCH (09:36)
[2017-05-09] MEDS: FAMOTIDINE 20 MG TAB NG SCH (09:36)
[2017-05-09] MEDS: LACTIC ACID (AMMONIUM LACTATE) 12% LOTION 225 GM BTL TOPICAL SCH ×2 (09:45→21:50)
[2017-05-09] MEDS: SODIUM CHLORIDE 0.9% FLUSH 10 ML FLUSH SCH ×2 (09:45→21:50)
--- NOTE | 2017-05-09 10:40 | HHI.PR ---
Subjective Remarks Follow up intracranial hemorrhage. Patient seen and examined today. RN at bedside. Patient lying in bed with eyes open, spontaneously moving left upper extremity to face. Intermittently squeezes left hand to command. Per bedside RN , patient nodded head to questions. Afebrile. No acute events overnight. Objective Vitals Vital Signs Date Time Temp Pulse Resp B/P Pulse Ox O2 Delivery O2 Flow Rate FiO2 05/09/17 08:00 98.6 75 18 120/72 96 05/09/17 04:43 98.9 58 16 147/79 97 05/09/17 00:41 97.2 65 16 115/65 95 05/08/17 20:21 97.7 67 18 156/85 95 05/08/17 15:53 67 18 106/89 100 05/08/17 15:43 65 16 112/75 100 05/08/17 15:33 98.3 62 18 112/73 98 05/08/17 12:00 98.1 64 18 133/79 97 I/O 05/08/17 05/08/17 05/08/17 05/09/17 05/09/17 05/09/17 07:00 15:00 23:00 07:00 15:00 23:00 Intake Total 0 ml 260 ml Balance 0 ml 260 ml Intake Oral 0 ml Tube Feeding 60 ml Other 200 ml # Voids 6 2 # Bowel Movements 0 0 Imaging Last Impressions Chest X-Ray 05/04/17 0000 Signed Impressions: Service Date/Time: April 05:29 - CONCLUSION: 1. Dobbhoff catheter tip in the distal stomach. 2. The lungs are clear. Phillip Moss MD Head CT 04/25/17 0000 Signed Impressions: Service Date/Time: Tuesday, April 25, 2017 18:02 - CONCLUSION: 1. Evolving left thalamic hematoma. No new hemorrhage. Adi Quarles MD Abdomen X-Ray 04/12/17 1538 Signed Impressions: Service Date/Time: Wednesday, April 12, 2017 17:29 - CONCLUSION: Nonobstructive bowel gas pattern. Suresh Zapata MD Neck CTA 04/10/17 0000 Signed Impressions: Service Date/Time: Monday, April 10, 2017 22:28 - CONCLUSION: The internal carotid arteries are normal bilaterally. No significant atherosclerotic disease is noted. Eliud Du MD Head CTA 04/10/17 0000 Signed Impressions: Service Date/Time: Monday, April 10, 2017 22:50 - CONCLUSION: Mild dilatation of the basilar tip without discrete aneurysm. Some narrowing of the left middle cerebral branch after the bifurcation. Prominent left thalamic hemorrhage. Eliud Du MD Objective Remarks GENERAL: Well-developed patient. Nonverbal, lying in bed in nad. SKIN: Warm and dry. HEAD: Normocephalic. PEG Tube to left mid abdomen. Dressing c/d/i. EYES: No scleral icterus. No injection or drainage. NECK: trachea midline. No JVD. CARDIOVASCULAR: Regular rate and rhythm. 3/6 blowing murmur noted. RESPIRATORY: Breath sounds equal bilaterally. No accessory muscle use. GASTROINTESTINAL: Abdomen soft, non-tender, nondistended. MUSCULOSKELETAL: No cyanosis, or edema. Spontaneous movement to left upper extremity. Right upper and lower extremities flaccid. Procedures None. Urinary Catheter: No Vascular Central Line Catheter: No A/P Assessment and Plan Patient is a middle-aged female with unknown identity who was brought to the hospital on 04/10/2017 due to altered mental status, right sided weakness with a left-jacobs gaze. Upon presentation, she was found to have BP around 250/[address] elevation in V1-V3 and T wave inversions in V5 , V6. Cardene drip was initiated and a CT head was done with suspicion of ICH. Cardiology attributed EKG changes to probable ICH. CT head indeed confirmed ICH with intraventricular extension. 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 - No surgical intervention as per Dr. Wang, recommended to keep systolic BP around 120 - 150. Patient currently hypertensive. - Neurology following, appreciate input. CT head reviewed showing evolving left thalamic hematoma, no new hemorrhage. - H/H stable. Will follow. Dysphagia - Post PEG placement 05/09/17. In place, clean, dry, intact. UTI with E Coli and Klebsiella, resolved. - Patient asymptomatic, afebrile, vitals stable. Ceftriaxone started 04/22/17 , stopped 04/30/17. Repeat UA negative. Hypertension, chronic: controlled. - Currently on Amlodipine 10mg Qday, Clonidine 0.2mg Q8hrs, Hydralazine 100 mg PO Q8hrs, Metoprolol 50mg BID. - Continue Lisinopril from 20mg Qday to 40 mgQday. - Continue Hydralazine 100mg Q8hrs. - Monitor BP. 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 GI Prophylaxis: Pepcid. DVT Prophylaxis: TEDs. Pharmacological DVT prophylaxis held at this time due to pt's thalamic bleed. Will initiate once cleared by neuro. Full code. Discharge Planning Last CM note: 05/02/17 3:00pm: CM s/w Yoko from [facility] this morning who suggestd that CM contact [employer] to finger print pt for ID as she is unable to do so. CM contacted [employer] and was infromed that they are not able to do so unless it is next of kin identification or criminal charges. Veena Calvillo May 09, 2017 10:40
[2017-05-09 11:51] VITALS: BP 156/106; PULSE 78; RESP 20; TEMP 98.6; O2SAT 98
--- NOTE | 2017-05-09 12:48 | HHI.GIFU ---
Subjective Remarks Resting in bed with eyes open. Tracking. Seems to be more alert today, following some simple commands- squeezing hands once or twice to command and sticks out tongue to command. Objective Vitals I&O Vital Signs Date Time Temp Pulse Resp B/P Pulse Ox O2 Delivery O2 Flow Rate FiO2 05/09/17 11:51 98.6 78 20 156/106 98 05/09/17 08:00 98.6 75 18 120/72 96 05/09/17 04:43 98.9 58 16 147/79 97 05/09/17 00:41 97.2 65 16 115/65 95 05/08/17 20:21 97.7 67 18 156/85 95 05/08/17 15:53 67 18 106/89 100 05/08/17 15:43 65 16 112/75 100 05/08/17 15:33 98.3 62 18 112/73 98 I/O 05/08/17 05/08/17 05/08/17 05/09/17 05/09/17 05/09/17 07:00 15:00 23:00 07:00 15:00 23:00 Intake Total 0 ml 260 ml Balance 0 ml 260 ml Intake Oral 0 ml Tube Feeding 60 ml Other 200 ml # Voids 6 2 # Bowel Movements 0 0 Imaging Last Impressions Chest X-Ray 05/04/17 0000 Signed Impressions: Service Date/Time: April 05:29 - CONCLUSION: 1. Dobbhoff catheter tip in the distal stomach. 2. The lungs are clear. Phillip Moss MD Head CT 04/25/17 0000 Signed Impressions: Service Date/Time: Tuesday, April 25, 2017 18:02 - CONCLUSION: 1. Evolving left thalamic hematoma. No new hemorrhage. Adi Quarles MD Abdomen X-Ray 04/12/17 1538 Signed Impressions: Service Date/Time: Wednesday, April 12, 2017 17:29 - CONCLUSION: Nonobstructive bowel gas pattern. Suresh Zapata MD Neck CTA 04/10/17 0000 Signed Impressions: Service Date/Time: Monday, April 10, 2017 22:28 - CONCLUSION: The internal carotid arteries are normal bilaterally. No significant atherosclerotic disease is noted. Eliud Du MD Head CTA 04/10/17 0000 Signed Impressions: Service Date/Time: Monday, April 10, 2017 22:50 - CONCLUSION: Mild dilatation of the basilar tip without discrete aneurysm. Some narrowing of the left middle cerebral branch after the bifurcation. Prominent left thalamic hemorrhage. Eliud Du MD Physical Exam HEENT: Normocephalic CHEST: Respirations even/unlabored, CTA CARDIAC: RRR ABDOMEN: +BS, soft, nondistended, nontender. PEG tube site without redness or drainage. EXTREMITIES: No cyanosis CONVICT GUARD: Right sided hemiparesis, Seems to be following commands- grasps hand on left once and twice to command, sticks out tongue to command Assessment and Plan Plan ASSESSMENT: - Dysphagia, FEN. Pt unidentified [place] with right sided weakness and leftward gaze. 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 S/P neurosurgery evaluation--- > no surgical intervention and to keep systolic blood pressure around 120-150. ST following for severe oropharyngeal dysphagia and cognitive/speech deficits and recommended speech therapy orders and that she remain NPO. S/P EGD with PEG tube placement (05/08)-----> Esophagus: moderate tube related GERD. Stomach: mild chronic gastritis. Biopsy taken from antrum Duodenum: normal PEG tube placed in usual way without apparent complication. Excellent transillumination 3 inches above the umbilicus. Excellent indentation. Site without redness or swelling. [employer] following, recommends Jevity 1.5 at 60cc/hr. - Gastritis, pathology pending. On pepcid will change to prevacid. PLAN: - Jevity 1.5 at GR 60cc/hr - Change Pepcid to Prevacid 30mg per tube daily - Await pathology - GI will sign off, please reconsult as needed - Pt seen and examined by Dr. De Los Santos and myself and this note is written on his behalf Madison Miller May 09, 2017 12:48
[2017-05-09 16:00] VITALS: BP 136/89; PULSE 73; RESP 20; TEMP 99.1; O2SAT 97
--- NOTE | 2017-05-09 19:13 | MR ---
cc: CHRISTOPH DE LOS SANTOS MD DATE 05/08/17 PROCEDURE Esophagogastroduodenoscopy with PEG tube placement with biopsy. INDICATION Inability to take p.o. due to stroke, dysphagia HISTORY Prior to procedure, this patient's case was discussed with risk management and it was deemed to be appropriate to proceed as this is a life-saving procedure designed to provide the patient with the proper nutrients to sustain her for the long-term as she goes to rehabilitation. PROCEDURE IN DETAIL After a decision was made to proceed based on two physicians deeming that this was a life-saving procedure, the patient was taken to the operating room. She was placed in the supine position. She was given sedation by the anesthesia service. After adequate sedation was achieved, the Pentax video gastroscope was inserted in the oropharynx and advanced down through the esophagus into the stomach. The Dobbhoff tube was removed. The scope was advanced down into the duodenum. It was then withdrawn slowly examining the mucosal surfaces carefully. Retroflex exam was performed. It was normal. The scope was then straightened and the stomach was inflated to allow transillumination. Transillumination was identified. It was excellent. Indentation was excellent. The site was chosen based on that and the skin was then sterilized with Betadine. The skin was anesthetized using 1% lidocaine down to the stomach wall. The skin was incised with a scalpel. Through the skin wound, a needle and catheter were inserted into the stomach. The needle was removed leaving the catheter in place and the scope was placed for observation. A snare was placed around the catheter and then the guidewire was inserted into the stomach through the catheter. It was grasped with a snare and pulled out through the mouth. The PEG tube was then loaded onto the guidewire and then pulled back down through the esophagus into position in the stomach. The scope was then reinserted into the esophagus and down to the stomach where excellent position of the internal retainer was noticed. A biopsy was then obtained from the gastric antrum because of chronic H. Pylori appearing gastritis. The scope was then withdrawn and the procedure was terminated. She tolerated the procedure well and was returned to the recovery area in good condition. FINDINGS 1. The esophagus appeared somewhat inflamed probably due to the presence of the nasoenteric feeding tube. 2. The stomach appeared to be mildly chronically inflamed consistent with H. Pylori gastritis. A biopsy was obtained. 3. The duodenum was normal. 4. A PEG tube was placed in the usual way without any apparent complication as described above. IMPRESSION 1. Gastritis. 2. Mild esophagitis probably due to the presence of the nasoenteric feeding tube. 3. Successful placement of percutaneous gastrostomy feeding tube. PLAN 1. The feeding tube may be used today for medications and flushed with water. 2. The tube can be used after 24 hours for resumption of tube feedings. 3. N.p.o. 4. Await the biopsy result for possible gastritis. Christoph De Los Santos MD [facility]/ /3:49 PM /7:01 PM
[2017-05-09 20:00] VITALS: BP 128/76; PULSE 86; RESP 18; TEMP 97.4; O2SAT 97
[2017-05-10] VITALS: BP_SYST 108; BP_SYST 93; BP_DIAS 50; BP_DIAS 66; PULSE 69; RESP 18; TEMP 97; O2SAT 97; O2SAT 98
[2017-05-10 01:59] VITALS: PULSE 77
[2017-05-10] MEDS: CHLORHEXIDINE GLUCONATE 2 % 1 PACK (2 CLOTHS) TOP SCH (04:00)
[2017-05-10] MEDS: hydrALAZINE HCL 50 MG TAB PO SCH ×3 (05:48→23:00)
[2017-05-10] MEDS: cloNIDine HCL 0.2 MG TAB PO SCH ×3 (05:48→23:01)
[2017-05-10 08:01] VITALS: BP 145/84; PULSE 102; RESP 20; TEMP 98.5; O2SAT 96
[2017-05-10] MEDS: LACTIC ACID (AMMONIUM LACTATE) 12% LOTION 225 GM BTL TOPICAL SCH ×2 (08:03→23:01)
[2017-05-10] MEDS: LANSOPRAZOLE SOLUTAB 30 MG TAB G-TUBE SCH (08:03)
[2017-05-10] MEDS: METOPROLOL TARTRATE 50 MG TAB PO SCH ×2 (08:03→23:00)
[2017-05-10] MEDS: LISINOPRIL 20 MG TAB PO SCH (08:03)
[2017-05-10] MEDS: DOCUSATE SODIUM 50 MG/SENNA 8.6 MG TAB PO SCH ×2 (09:00→23:00)
[2017-05-10] MEDS: SODIUM CHLORIDE 0.9% FLUSH 10 ML FLUSH SCH ×2 (09:00→23:01)
--- NOTE | 2017-05-10 09:33 | HHI.PR ---
Subjective Remarks Follow up intracranial hemorrhage. Patient seen and examined today, RN at bedside. Patient eyes open, awake, tracking with eyes, responding to commands in left upper extremity. Denies pain by nodding no. No new acute events overnight. Tolerating TF through PEG tube. Afebrile. VSS. Objective Vitals Vital Signs Date Time Temp Pulse Resp B/P Pulse Ox O2 Delivery O2 Flow Rate FiO2 05/10/17 08:01 98.5 102 20 145/84 96 05/10/17 01:59 77 05/10/17 00:00 97.0 69 18 108/66 97 05/10/17 00:00 97.0 69 18 93/50 98 05/09/17 20:00 97.4 86 18 128/76 97 05/09/17 16:00 99.1 73 20 136/89 97 05/09/17 11:51 98.6 78 20 156/106 98 I/O 05/09/17 05/09/17 05/09/17 05/10/17 05/10/17 05/10/17 06:59 14:59 22:59 06:59 14:59 22:59 Intake Total 250 ml Output Total 0 ml Balance 0 ml 250 ml Other 250 ml Tube Feeding Residual Discard 0 ml # Voids 2 2 # Bowel Movements 0 0 Imaging Last Impressions Chest X-Ray 05/04/17 0000 Signed Impressions: Service Date/Time: April 05:29 - CONCLUSION: 1. Dobbhoff catheter tip in the distal stomach. 2. The lungs are clear. Phillip Moss MD Head CT 04/25/17 0000 Signed Impressions: Service Date/Time: Tuesday, April 25, 2017 18:02 - CONCLUSION: 1. Evolving left thalamic hematoma. No new hemorrhage. Adi Quarles MD Abdomen X-Ray 04/12/17 1538 Signed Impressions: Service Date/Time: Wednesday, April 12, 2017 17:29 - CONCLUSION: Nonobstructive bowel gas pattern. Suresh Zapata MD Neck CTA 04/10/17 0000 Signed Impressions: Service Date/Time: Monday, April 10, 2017 22:28 - CONCLUSION: The internal carotid arteries are normal bilaterally. No significant atherosclerotic disease is noted. Eliud Du MD Head CTA 04/10/17 0000 Signed Impressions: Service Date/Time: Monday, April 10, 2017 22:50 - CONCLUSION: Mild dilatation of the basilar tip without discrete aneurysm. Some narrowing of the left middle cerebral branch after the bifurcation. Prominent left thalamic hemorrhage. Eliud Du MD Objective Remarks GENERAL: Well-developed patient. Nonverbal, lying in bed in nad. SKIN: Warm and dry. HEAD: Normocephalic. PEG Tube to left mid abdomen. Dressing c/d/i. EYES: No scleral icterus. No injection or drainage. NECK: trachea midline. No JVD. CARDIOVASCULAR: Regular rate and rhythm. / blowing murmur noted. RESPIRATORY: Breath sounds equal bilaterally. No accessory muscle use. GASTROINTESTINAL: Abdomen soft, non-tender, nondistended. MUSCULOSKELETAL: No cyanosis, or edema. Spontaneous movement to left upper extremity, following commands today. Tracking with eyes. Right upper and lower extremities flaccid. Procedures None. A/P Assessment and Plan Patient is a middle-aged female with unknown identity who was brought to the hospital on 04/10/2017 due to altered mental status, right sided weakness with a left-jacobs gaze. Upon presentation, she was found to have BP around 250/[address] elevation in V1-V3 and T wave inversions in V5 , V6. Cardene drip was initiated and a CT head was done with suspicion of ICH. Cardiology attributed EKG changes to probable ICH. CT head indeed confirmed ICH with intraventricular extension. 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 - No surgical intervention as per Dr. Wang, recommended to keep systolic BP around 120 - 150. Patient currently hypertensive. - Neurology following, appreciate input. CT head reviewed showing evolving left thalamic hematoma, no new hemorrhage. - H/H stable. Will follow. Dysphagia - Post PEG placement 05/09/17. In place, clean, dry, intact. TF continued. UTI with E Coli and Klebsiella, resolved. - Patient asymptomatic, afebrile, vitals stable. Ceftriaxone started 04/22/17 , stopped 04/30/17. Repeat UA negative. Hypertension, chronic: controlled. - Currently on Amlodipine 10mg Qday, Clonidine 0.2mg Q8hrs, Hydralazine 100 mg PO Q8hrs, Metoprolol 50mg BID. - Continue Lisinopril from 20mg Qday to 40 mgQday. - Continue Hydralazine 100mg Q8hrs. - Monitor BP. 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 GI Prophylaxis: Pepcid. DVT Prophylaxis: TEDs. Pharmacological DVT prophylaxis held at this time due to pt's thalamic bleed. Will initiate once cleared by neuro. Full code. Discharge Planning Last CM note: 05/02/17 3:00pm: CM s/w Yoko from [facility] this morning who suggestd that CM contact [employer] to finger print pt for ID as she is unable to do so. CM contacted [employer] and was infromed that they are not able to do so unless it is next of kin identification or criminal charges. Veena Calvillo May 10, 2017 09:32
[2017-05-10 11:54] VITALS: BP 135/83; PULSE 73; RESP 20; TEMP 97.4; O2SAT 95
[2017-05-10 16:06] VITALS: BP 130/75; PULSE 85; RESP 18; TEMP 98.5; O2SAT 96
[2017-05-10 20:00] VITALS: BP 141/79; PULSE 95; RESP 20; TEMP 99.5; O2SAT 94
[2017-05-11] VITALS: BP 116/76; PULSE 72; RESP 20; TEMP 98.2; O2SAT 95
[2017-05-11 04:00] VITALS: BP 131/83; PULSE 73; RESP 20; TEMP 98.9; O2SAT 99
[2017-05-11] MEDS: CHLORHEXIDINE GLUCONATE 2 % 1 PACK (2 CLOTHS) TOP SCH (04:00)
[2017-05-11 07:35] LABS: BICARBONATE 29.2 MEQ/L (21.0-32.0); CALCIUM 8.4 MG/DL (8.5-10.1); CREATININE 0.49 MG/DL (0.50-1.00)
[2017-05-11 07:37] LABS: AUTOMATED NEUTROPHIL # 2.1 TH/MM3 (1.8-7.7); BASOPHIL % 0.5 % (0.0-2.0); EOSINOPHIL # 0.1 TH/MM3 (0-0.4); EOSINOPHIL % 3.6 % (0.0-4.0); HEMATOCRIT 39.5 % (35.0-46.0); HEMOGLOBIN 12.6 GM/DL (11.6-15.3); LYMPH % 32.1 % (9.0-44.0); LYMPHOCYTE # 1.3 TH/MM3 (1.0-4.8); MEAN CELL VOLUME 90.6 FL (80.0-100.0); MEAN CORPUSCULAR HEMOGLOBIN 28.9 PG (27.0-34.0); MEAN CORPUSCULAR HGB CONC 31.8 % (32.0-36.0); MEAN PLATELET VOLUME 10.9 FL (7.0-11.0); MONO % 14.3 % (0.0-8.0); MONOCYTE # 0.6 TH/MM3 (0-0.9); NEUT % 49.5 % (16.0-70.0); PLATELET COUNT 153 TH/MM3 (150-450); RED BLOOD COUNT 4.36 MIL/MM3 (4.00-5.30); RED CELL DISTRIBUTION WIDTH 13.7 % (11.6-17.2); WHITE BLOOD COUNT 4.2 TH/MM3 (4.0-11.0)
[2017-05-11 07:58] VITALS: BP 99/69; PULSE 64; RESP 17; TEMP 97.5; O2SAT 98
[2017-05-11] MEDS: hydrALAZINE HCL 50 MG TAB PO SCH ×3 (08:20→22:49)
[2017-05-11] MEDS: cloNIDine HCL 0.2 MG TAB PO SCH ×3 (08:21→22:49)
[2017-05-11] MEDS: DOCUSATE SODIUM 50 MG/SENNA 8.6 MG TAB PO SCH ×2 (09:18→21:00)
[2017-05-11] MEDS: LANSOPRAZOLE SOLUTAB 30 MG TAB G-TUBE SCH (09:18)
[2017-05-11] MEDS: LACTIC ACID (AMMONIUM LACTATE) 12% LOTION 225 GM BTL TOPICAL SCH ×2 (09:18→22:50)
[2017-05-11] MEDS: LISINOPRIL 20 MG TAB PO SCH (09:18)
[2017-05-11] MEDS: METOPROLOL TARTRATE 50 MG TAB PO SCH ×2 (09:18→22:49)
[2017-05-11] MEDS: SODIUM CHLORIDE 0.9% FLUSH 10 ML FLUSH SCH ×2 (09:19→21:00)
--- NOTE | 2017-05-11 11:30 | HHI.PR ---
Subjective Remarks Follow up intracranial hemorrhage. Patient seen and examined today, lying in bed comfortably with eyes open. Tracking with eyes, appears to understand, occasionally nodding, follows commands in left upper and lower extremity. Patient nods 'no' to pain. RN at bedside, no new acute events overnight. Afebrile. Positive BM. Vitals stable. Objective Vitals Vital Signs Date Time Temp Pulse Resp B/P Pulse Ox O2 Delivery O2 Flow Rate FiO2 05/11/17 07:58 97.5 64 17 99/69 98 05/11/17 04:00 98.9 73 20 131/83 99 05/11/17 00:00 98.2 72 20 116/76 95 05/10/17 20:00 99.5 95 20 141/79 94 05/10/17 16:06 98.5 85 18 130/75 96 05/10/17 11:54 97.4 73 20 135/83 95 I/O 05/10/17 05/10/17 05/10/17 05/11/17 05/11/17 05/11/17 07:00 15:00 23:00 07:00 15:00 23:00 Intake Total 1250 ml 180 ml Balance 1250 ml 180 ml Tube Feeding 850 ml Tube Irrigant 400 ml 30 ml Other 150 ml # Voids 2 1 2 1 # Bowel Movements 1 Result Diagram: 05/11/17 0630 05/11/17 0630 Imaging Last Impressions Chest X-Ray 05/04/17 0000 Signed Impressions: Service Date/Time: April 05:29 - CONCLUSION: 1. Dobbhoff catheter tip in the distal stomach. 2. The lungs are clear. Phillip Moss MD Head CT 04/25/17 0000 Signed Impressions: Service Date/Time: Tuesday, April 25, 2017 18:02 - CONCLUSION: 1. Evolving left thalamic hematoma. No new hemorrhage. Adi Quarles MD Abdomen X-Ray 04/12/17 1538 Signed Impressions: Service Date/Time: Wednesday, April 12, 2017 17:29 - CONCLUSION: Nonobstructive bowel gas pattern. Suresh Zapata MD Neck CTA 04/10/17 0000 Signed Impressions: Service Date/Time: Monday, April 10, 2017 22:28 - CONCLUSION: The internal carotid arteries are normal bilaterally. No significant atherosclerotic disease is noted. Eliud Du MD Head CTA 04/10/17 0000 Signed Impressions: Service Date/Time: Monday, April 10, 2017 22:50 - CONCLUSION: Mild dilatation of the basilar tip without discrete aneurysm. Some narrowing of the left middle cerebral branch after the bifurcation. Prominent left thalamic hemorrhage. Eliud Du MD Objective Remarks GENERAL: Well-developed patient. Nonverbal, lying in bed in nad. SKIN: Warm and dry. HEAD: Normocephalic. PEG Tube to left mid abdomen. Dressing c/d/i. EYES: No scleral icterus. No injection or drainage. NECK: trachea midline. No JVD. CARDIOVASCULAR: Regular rate and rhythm. 3/6 blowing murmur noted. RESPIRATORY: Breath sounds equal bilaterally. No accessory muscle use. GASTROINTESTINAL: Abdomen soft, non-tender, nondistended. MUSCULOSKELETAL: No cyanosis, or edema. Spontaneous movement to left upper extremity, following commands today in left upper and lower extremities. Tracking with eyes. Right upper and lower extremities flaccid. Procedures None. A/P Assessment and Plan Patient is a middle-aged female with unknown identity who was brought to the hospital on 04/10/2017 due to altered mental status, right sided weakness with a left-jacobs gaze. Upon presentation, she was found to have BP around 250/[address] elevation in V1-V3 and T wave inversions in V5 , V6. Cardene drip was initiated and a CT head was done with suspicion of ICH. Cardiology attributed EKG changes to probable ICH. CT head indeed confirmed ICH with intraventricular extension. 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 - No surgical intervention as per Dr. Wang, recommended to keep systolic BP around 120 - 150. BP well controlled. - Neurology following, appreciate input. CT head reviewed showing evolving left thalamic hematoma, no new hemorrhage. - CBC reviewed thsi am, H/H stable. Will follow. Dysphagia - Post PEG placement 05/09/17. In place, clean, dry, intact. TF continued. UTI with E Coli and Klebsiella, resolved. - Patient asymptomatic, afebrile, vitals stable. Ceftriaxone started 04/22/17 , stopped 04/30/17. Repeat UA negative. Hypertension, chronic: controlled. - Currently on Amlodipine 10mg Qday, Clonidine 0.2mg Q8hrs, Hydralazine 100 mg PO Q8hrs, Metoprolol 50mg BID. - Continue Lisinopril from 20mg Qday to 40 mgQday. - Continue Hydralazine 100mg Q8hrs. - Monitor BP. 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 GI Prophylaxis: Pepcid. DVT Prophylaxis: TEDs. Pharmacological DVT prophylaxis held at this time due to pt's thalamic bleed. Will initiate once cleared by neuro. Full code. Discharge Planning Last CM note: 05/10/17 2:30pm: Pt remains a Nichol Holley with [facility] exhausting all avenues of idenification. CM had attempted to have [employer] in to finger print pt and was informed that they were unable to provide that service unless it is a criminal case or a next of kin notification. Attending Statement Patient seen in her bedroom, discussed with GUS Calvillo evaluated and read chart, has stable vital signs and Laboratory evaluated and also within normal limits, Neurology specialist following. not yet able to discharge not yet identified the patient. Veena Calvillo May 11, 2017 11:30 Percy Frank MD May 12, 2017 15:42
[2017-05-11 11:53] VITALS: BP 109/70; PULSE 67; RESP 18; TEMP 98.1; O2SAT 98
[2017-05-11 16:15] VITALS: BP 128/80; PULSE 70; RESP 18; TEMP 98.5; O2SAT 97
--- NOTE | 2017-05-11 17:32 | HHI.PR ---
Review/Management Diagnosis left thalamic hemorrhage with intraventricular extension,--exam is stable Plan continue BP control ok from neuro standpoint to consider dc to rehab when ok with primary service Diagnosis/Plan: Subjective Subjective Comments No acute events reported Pt has been more alert Active Medications Current Medications Medications (Trade) Dose Ordered Sig/Reymundo Route Start Time Stop Time Status Last Admin (NS Flush) 2 ml UNSCH PRN .XX 04/10/17 22:00 05/01/17 04:49 (NS Flush) 2 ml BID .XX 04/11/17 09:00 05/11/17 09:19 (Tylenol) 650 mg Q6H PRN PO 04/10/17 22:00 04/26/17 13:46 (Morphine Inj) 2 mg Q2H PRN IV 04/10/17 22:00 04/18/17 21:05 (Zofran Inj) 4 mg Q6H PRN IV 04/10/17 22:00 (Reglan Inj) 10 mg Q6H PRN IV 04/10/17 22:00 (Compazine Supp) 25 mg Q12H PRN RECTAL 04/10/17 22:00 Miscellaneous Information 1 Q361D XX 04/10/17 22:00 04/10/17 22:00 (Chlorhexidine 2% Cloth) Taper DAILY@04 TOP 04/11/17 04:00 04/07/18 03:59 04/22/17 04:00 (Chlorhexidine 2% Cloth) 3 pack UNSCH PRN TOP 04/10/17 22:00 (Evelyn-Colace) 1 tab BID PO 04/11/17 09:00 05/11/17 09:18 (Milk Of Magnesia Liq) 30 ml Q12H PRN PO 04/10/17 22:00 (Senokot) 17.2 mg Q12H PRN PO 04/10/17 22:00 05/08/17 21:29 (Dulcolax Supp) 10 mg DAILY PRN RECTAL 04/10/17 22:00 (Lactulose Liq) 30 ml DAILY PRN PO 04/10/17 22:00 04/24/17 08:44 (Apresoline Inj) 20 mg Q4H PRN IV PUSH 04/12/17 08:15 04/16/17 17:38 (Norvasc) 10 mg DAILY PO 04/14/17 19:45 05/11/17 09:18 (Vasotec Inj) 1.25 mg Q6H PRN IV PUSH 04/15/17 01:15 04/27/17 17:29 (Nitroglycerin 2% Oint) 2 inch Q6HR PRN TOPICAL 04/15/17 06:00 04/16/17 12:34 (Pill Splitter) 1 ea UNSCH PRN OTHER 04/20/17 17:15 (Lopressor) 50 mg BID PO 04/24/17 21:00 05/11/17 09:18 (Catapres) 0.2 mg Q8HR PO 04/26/17 22:00 05/11/17 08:21 (Apresoline) 100 mg Q8HR PO 04/27/17 22:00 05/11/17 08:20 (Prinivil) 40 mg DAILY PO 04/28/17 09:00 05/11/17 09:18 (Lac-Hydrin 12% Lotion) 1 applic BID TOPICAL 05/04/17 14:00 05/11/17 09:18 (Prevacid Odt) 30 mg DAILY G-TUBE 05/10/17 09:00 05/11/17 09:18 Allergies Allergies Coded Allergies UNOBTAINABLE (Unverified04/10/17) Exam I&O / VS 05/10/17 05/10/17 05/11/17 15:00 23:00 07:00 Intake Total 1250 ml Balance 1250 ml Tube Feeding 850 ml Tube Irrigant 400 ml # Voids 2 1 2 # Bowel Movements 1 Vital Signs Date Time Temp Pulse Resp B/P Pulse Ox O2 Delivery O2 Flow Rate FiO2 05/11/17 16:15 98.5 70 18 128/80 97 05/11/17 11:53 98.1 67 18 109/70 98 05/11/17 07:58 97.5 64 17 99/69 98 05/11/17 04:00 98.9 73 20 131/83 99 05/11/17 00:00 98.2 72 20 116/76 95 05/10/17 20:00 99.5 95 20 141/79 94 Exam Comments More alert and follow simple commands. 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 but not right, no spontaneous movement right with increased tone Objective Micro and Labs Laboratory Tests Test 05/11/17 06:30 White Blood Count 4.2 Red Blood Count 4.36 Hemoglobin 12.6 Hematocrit 39.5 Mean Corpuscular Volume 90.6 Mean Corpuscular Hemoglobin 28.9 Mean Corpuscular Hemoglobin 31.8 Concent Red Cell Distribution Width 13.7 Platelet Count 153 Mean Platelet Volume 10.9 Neutrophils (%) (Auto) 49.5 Lymphocytes (%) (Auto) 32.1 Monocytes (%) (Auto) 14.3 Eosinophils (%) (Auto) 3.6 Basophils (%) (Auto) 0.5 Neutrophils # (Auto) 2.1 Lymphocytes # (Auto) 1.3 Monocytes # (Auto) 0.6 Eosinophils # (Auto) 0.1 Basophils # (Auto) 0.0 CBC Comment DIFF FINAL Differential Comment Sodium Level 146 Potassium Level 3.7 Chloride Level 111 Carbon Dioxide Level 29.2 Anion Gap 6 Blood Urea Nitrogen 19 Creatinine 0.49 Estimat Glomerular Filtration 132 Rate Random Glucose 108 Calcium Level 8.4 Jonathan Ravi PhD May 11, 2017 17:32
[2017-05-11 20:00] VITALS: BP 151/89; PULSE 76; RESP 20; TEMP 99.2; O2SAT 96
[2017-05-12] VITALS: BP_SYST 142; BP_SYST 145; BP_DIAS 82; BP_DIAS 83; PULSE 69; RESP 20; TEMP 98.5; O2SAT 96
[2017-05-12 04:00] VITALS: BP 142/87; PULSE 72; RESP 20; TEMP 97; O2SAT 97
[2017-05-12] MEDS: CHLORHEXIDINE GLUCONATE 2 % 1 PACK (2 CLOTHS) TOP SCH (04:00)
[2017-05-12] MEDS: hydrALAZINE HCL 50 MG TAB PO SCH ×3 (05:51→21:51)
[2017-05-12] MEDS: cloNIDine HCL 0.2 MG TAB PO SCH ×3 (05:51→21:51)
[2017-05-12 08:00] VITALS: BP 137/84; PULSE 68; RESP 18; TEMP 96.9; O2SAT 98
[2017-05-12] MEDS: LACTIC ACID (AMMONIUM LACTATE) 12% LOTION 225 GM BTL TOPICAL SCH ×2 (09:00→21:51)
--- NOTE | 2017-05-12 09:41 | HHI.PR ---
Subjective Remarks Follow up intracranial hemorrhage. Patient seen and examined today, awake, alert , RN at bedside. Patient nonverbal. Tracking with eyes. Purposeful movement in left upper extremity. Right sided flaccidity. Patient denies any pain. Tolerating TF. No acute events overnight. Objective Vitals Vital Signs Date Time Temp Pulse Resp B/P Pulse Ox O2 Delivery O2 Flow Rate FiO2 05/12/17 08:00 96.9 68 18 137/84 98 05/12/17 04:00 97.0 72 20 142/87 97 05/12/17 00:00 98.5 69 20 145/82 96 05/12/17 00:00 98.5 69 20 145/82 96 05/12/17 00:00 98.5 69 20 142/83 96 05/11/17 20:00 99.2 76 20 151/89 96 05/11/17 16:15 98.5 70 18 128/80 97 05/11/17 11:53 98.1 67 18 109/70 98 I/O 05/11/17 05/11/17 05/11/17 05/12/17 05/12/17 05/12/17 07:00 15:00 23:00 07:00 15:00 23:00 Intake Total 1250 ml 180 ml 1118 ml Balance 1250 ml 180 ml 1118 ml Intake Oral 240 ml Tube Feeding 850 ml 728 ml Tube Irrigant 400 ml 30 ml Other 150 ml 150 ml # Voids 2 1 5 2 # Bowel Movements 1 1 1 Result Diagram: 05/11/17 0630 05/11/17 0630 Imaging Last Impressions Chest X-Ray 05/04/17 0000 Signed Impressions: Service Date/Time: April 05:29 - CONCLUSION: 1. Dobbhoff catheter tip in the distal stomach. 2. The lungs are clear. Phillip Moss MD Head CT 04/25/17 0000 Signed Impressions: Service Date/Time: Tuesday, April 25, 2017 18:02 - CONCLUSION: 1. Evolving left thalamic hematoma. No new hemorrhage. Adi Quarles MD Abdomen X-Ray 04/12/17 1538 Signed Impressions: Service Date/Time: Wednesday, April 12, 2017 17:29 - CONCLUSION: Nonobstructive bowel gas pattern. Suresh Zapata MD Neck CTA 04/10/17 0000 Signed Impressions: Service Date/Time: Monday, April 10, 2017 22:28 - CONCLUSION: The internal carotid arteries are normal bilaterally. No significant atherosclerotic disease is noted. Eliud Du MD Head CTA 04/10/17 0000 Signed Impressions: Service Date/Time: Monday, April 10, 2017 22:50 - CONCLUSION: Mild dilatation of the basilar tip without discrete aneurysm. Some narrowing of the left middle cerebral branch after the bifurcation. Prominent left thalamic hemorrhage. Eliud Du MD Objective Remarks GENERAL: Well-developed patient. Nonverbal, lying in bed in nad. SKIN: Warm and dry. HEAD: Normocephalic. PEG Tube to left mid abdomen. Dressing c/d/i. EYES: No scleral icterus. No injection or drainage. NECK: trachea midline. No JVD. CARDIOVASCULAR: Regular rate and rhythm. 3/6 blowing murmur noted. RESPIRATORY: Breath sounds equal bilaterally. No accessory muscle use. GASTROINTESTINAL: Abdomen soft, non-tender, nondistended. MUSCULOSKELETAL: No cyanosis, or edema. Spontaneous movement to left upper extremity, following commands today in left upper and lower extremities. Tracking with eyes. Right upper and lower extremities flaccid. Procedures None. A/P Assessment and Plan Patient is a middle-aged female with unknown identity who was brought to the hospital on 04/10/2017 due to altered mental status, right sided weakness with a left-jacobs gaze. Upon presentation, she was found to have BP around 250/[address] elevation in V1-V3 and T wave inversions in V5 , V6. Cardene drip was initiated and a CT head was done with suspicion of ICH. Cardiology attributed EKG changes to probable ICH. CT head indeed confirmed ICH with intraventricular extension. 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 - No surgical intervention as per Dr. Wang, recommended to keep systolic BP around 120 - 150. BP well controlled. - Neurology following, appreciate input. CT head reviewed showing evolving left thalamic hematoma, no new hemorrhage. - CBC reviewed thsi am, H/H stable. Will follow. Dysphagia - Post PEG placement 05/09/17. In place, clean, dry, intact. TF continued. UTI with E Coli and Klebsiella, resolved. - Patient asymptomatic, afebrile, vitals stable. Ceftriaxone started 04/22/17 , stopped 04/30/17. Repeat UA negative. Hypertension, chronic: controlled. - Currently on Amlodipine 10mg Qday, Clonidine 0.2mg Q8hrs, Hydralazine 100 mg PO Q8hrs, Metoprolol 50mg BID. - Continue Lisinopril from 20mg Qday to 40 mgQday. - Continue Hydralazine 100mg Q8hrs. - Monitor BP. 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 GI Prophylaxis: Pepcid. DVT Prophylaxis: TEDs. Pharmacological DVT prophylaxis held at this time due to pt's thalamic bleed. Will initiate once cleared by neuro. Full code. Discharge Planning Last CM note: 05/10/17 2:30pm: Pt remains a Nichol Holley with [facility] exhausting all avenues of idenification. CM had attempted to have [employer] in to finger print pt and was informed that they were unable to provide that service unless it is a criminal case or a next of kin notification. Attending Statement Patient seen in her bedroom, discussed with PA Mrs. Veena Calvillo evaluated and read chart, has stable vital signs and Laboratory evaluated and also within normal limits, Neurology specialist following. not yet able to discharge not yet identified the patient. Veena Calvillo May 12, 2017 09:41 Percy Frank MD May 12, 2017 15:42
[2017-05-12] MEDS: DOCUSATE SODIUM 50 MG/SENNA 8.6 MG TAB PO SCH ×2 (11:02→21:51)
[2017-05-12] MEDS: LISINOPRIL 20 MG TAB PO SCH (11:02)
[2017-05-12] MEDS: LANSOPRAZOLE SOLUTAB 30 MG TAB G-TUBE SCH (11:02)
[2017-05-12] MEDS: SODIUM CHLORIDE 0.9% FLUSH 10 ML FLUSH SCH ×2 (11:03→21:51)
[2017-05-12] MEDS: METOPROLOL TARTRATE 50 MG TAB PO SCH ×2 (11:03→21:51)
[2017-05-12 12:00] VITALS: BP 147/79; PULSE 69; RESP 17; TEMP 97.9; O2SAT 97
[2017-05-12 16:51] VITALS: O2SAT 100
[2017-05-12 20:11] VITALS: BP 163/92; PULSE 79; RESP 17; TEMP 98.4; O2SAT 96
[2017-05-13] VITALS (7 sets, daily range): BP systolic 119–177; BP diastolic 71–92; PULSE 62–77; RESP 17–18; TEMP 96.4–99; O2SAT 96–98
[2017-05-13] MEDS: ENALAPRILAT 1.25 MG/ML VIAL IV PUSH PRN (01:22)
[2017-05-13] MEDS: CHLORHEXIDINE GLUCONATE 2 % 1 PACK (2 CLOTHS) TOP SCH (03:01)
[2017-05-13] MEDS: cloNIDine HCL 0.2 MG TAB PO SCH ×3 (05:36→22:10)
[2017-05-13] MEDS: hydrALAZINE HCL 50 MG TAB PO SCH ×3 (05:36→22:10)
[2017-05-13] MEDS: DOCUSATE SODIUM 50 MG/SENNA 8.6 MG TAB PO SCH ×2 (08:58→22:10)
[2017-05-13] MEDS: LANSOPRAZOLE SOLUTAB 30 MG TAB G-TUBE SCH (08:58)
[2017-05-13] MEDS: METOPROLOL TARTRATE 50 MG TAB PO SCH ×2 (08:58→22:10)
[2017-05-13] MEDS: LISINOPRIL 20 MG TAB PO SCH (08:58)
[2017-05-13] MEDS: LACTIC ACID (AMMONIUM LACTATE) 12% LOTION 225 GM BTL TOPICAL SCH ×2 (08:59→22:12)
[2017-05-13] MEDS: SODIUM CHLORIDE 0.9% FLUSH 10 ML FLUSH SCH ×2 (08:59→22:11)
--- NOTE | 2017-05-13 10:45 | HHI.PR ---
Subjective Remarks Follow up intracranial hemorrhage. Patient seen and examined today. More sleepy today. Awakens to voice, opens eyes and falls back to sleep. Does Moving left upper extremity spontaneously, does not follow commands today. Tolerating TF. Spoke to RN, no new acute changes overnight. Was unable to words spell her name with board and pointing. Will continue to monitor and encourage. Objective Vitals Vital Signs Date Time Temp Pulse Resp B/P Pulse Ox O2 Delivery O2 Flow Rate FiO2 05/13/17 08:17 96.4 64 18 121/87 96 05/13/17 04:37 98.4 68 18 155/92 97 05/13/17 02:56 68 18 157/89 98 05/13/17 00:20 98.1 62 17 171/91 97 05/12/17 20:11 98.4 79 17 163/92 96 05/12/17 16:51 100 05/12/17 12:00 97.9 69 17 147/79 97 I/O 05/12/17 05/12/17 05/12/17 05/13/17 05/13/17 05/13/17 07:00 15:00 23:00 07:00 15:00 23:00 Intake Total 245 ml 546 ml Balance 245 ml 546 ml Tube Feeding 185 ml 546 ml Other 60 ml # Voids 2 4 2 # Bowel Movements 1 1 Result Diagram: 05/11/17 0630 05/11/17 0630 Imaging Last Impressions Chest X-Ray 05/04/17 0000 Signed Impressions: Service Date/Time: April 05:29 - CONCLUSION: 1. Dobbhoff catheter tip in the distal stomach. 2. The lungs are clear. Phillip Moss MD Head CT 04/25/17 0000 Signed Impressions: Service Date/Time: Tuesday, April 25, 2017 18:02 - CONCLUSION: 1. Evolving left thalamic hematoma. No new hemorrhage. Adi Quarles MD Abdomen X-Ray 04/12/17 1538 Signed Impressions: Service Date/Time: Wednesday, April 12, 2017 17:29 - CONCLUSION: Nonobstructive bowel gas pattern. Suresh Zapata MD Neck CTA 04/10/17 0000 Signed Impressions: Service Date/Time: Monday, April 10, 2017 22:28 - CONCLUSION: The internal carotid arteries are normal bilaterally. No significant atherosclerotic disease is noted. Eliud Du MD Head CTA 04/10/17 0000 Signed Impressions: Service Date/Time: Monday, April 10, 2017 22:50 - CONCLUSION: Mild dilatation of the basilar tip without discrete aneurysm. Some narrowing of the left middle cerebral branch after the bifurcation. Prominent left thalamic hemorrhage. Eliud Du MD Objective Remarks GENERAL: Well-developed patient. Nonverbal, lying in bed in nad. SKIN: Warm and dry. HEAD: Normocephalic. PEG Tube to left mid abdomen. Dressing c/d/i. EYES: No scleral icterus. No injection or drainage. NECK: trachea midline. No JVD. CARDIOVASCULAR: Regular rate and rhythm. 3/6 blowing murmur noted. RESPIRATORY: Breath sounds equal bilaterally. No accessory muscle use. GASTROINTESTINAL: Abdomen soft, non-tender, nondistended. MUSCULOSKELETAL: No cyanosis, or edema. Spontaneous movement to left upper extremity, following commands today in left upper and lower extremities. Tracking with eyes. Right upper and lower extremities flaccid. Procedures None. A/P Assessment and Plan Patient is a middle-aged female with unknown identity who was brought to the hospital on 04/10/2017 due to altered mental status, right sided weakness with a left-jacobs gaze. Upon presentation, she was found to have BP around 250/[address] elevation in V1-V3 and T wave inversions in V5 , V6. Cardene drip was initiated and a CT head was done with suspicion of ICH. Cardiology attributed EKG changes to probable ICH. CT head indeed confirmed ICH with intraventricular extension. 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 - No surgical intervention as per Dr. Wang, recommended to keep systolic BP around 120 - 150. BP well controlled. - Neurology following, ok for discharge to rehab. CT head reviewed showing evolving left thalamic hematoma, no new hemorrhage. - H/H stable. Dysphagia - Post PEG placement 05/09/17. In place, clean, dry, intact. TF continued. UTI with E Coli and Klebsiella, resolved. - Patient asymptomatic, afebrile, vitals stable. Ceftriaxone started 04/22/17 , stopped 04/30/17. Repeat UA negative. Hypertension, chronic: controlled. - Currently on Amlodipine 10mg Qday, Clonidine 0.2mg Q8hrs, Hydralazine 100 mg PO Q8hrs, Metoprolol 50mg BID. - Continue Lisinopril from 20mg Qday to 40 mgQday. - Continue Hydralazine 100mg Q8hrs. - Monitor BP. 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 GI Prophylaxis: Pepcid. DVT Prophylaxis: TEDs. Pharmacological DVT prophylaxis held at this time due to pt's thalamic bleed. Will initiate once cleared by neuro. Full code. Discharge Planning Last CM note: 05/10/17 2:30pm: Pt remains a Nichol Holley with [employer] exhausting all avenues of idenification. CM had attempted to have [employer] in to finger print pt and was informed that they were unable to provide that service unless it is a criminal case or a next of kin notification. Veena Calvillo May 13, 2017 10:45
[2017-05-14 00:11] VITALS: BP 117/65; PULSE 70; RESP 16; TEMP 98; O2SAT 95
[2017-05-14] MEDS: CHLORHEXIDINE GLUCONATE 2 % 1 PACK (2 CLOTHS) TOP SCH (03:35)
[2017-05-14 04:05] VITALS: BP 120/66; PULSE 68; RESP 18; TEMP 98.4; O2SAT 96
[2017-05-14] MEDS: hydrALAZINE HCL 50 MG TAB PO SCH ×3 (05:12→21:38)
[2017-05-14] MEDS: cloNIDine HCL 0.2 MG TAB PO SCH ×3 (05:12→21:38)
[2017-05-14 08:32] VITALS: BP 133/84; PULSE 72; RESP 18; TEMP 96.8; O2SAT 100
[2017-05-14] MEDS: METOPROLOL TARTRATE 50 MG TAB PO SCH ×2 (08:42→21:38)
[2017-05-14] MEDS: SODIUM CHLORIDE 0.9% FLUSH 10 ML FLUSH SCH ×2 (08:42→21:39)
[2017-05-14] MEDS: LISINOPRIL 20 MG TAB PO SCH (08:42)
[2017-05-14] MEDS: DOCUSATE SODIUM 50 MG/SENNA 8.6 MG TAB PO SCH ×2 (08:42→21:38)
[2017-05-14] MEDS: LACTIC ACID (AMMONIUM LACTATE) 12% LOTION 225 GM BTL TOPICAL SCH ×2 (08:42→21:39)
[2017-05-14] MEDS: LANSOPRAZOLE SOLUTAB 30 MG TAB G-TUBE SCH (08:42)
--- NOTE | 2017-05-14 11:58 | HHI.PR ---
Subjective Remarks Follow up intracranial hemorrhage. Patient seen and examined today. Lying in bed asleep, awakens eyes to voice. Patient tracking with eyes, left hand grasp and moving left upper extremity spontaneously. Spoke to RN, no acute events overnight, Tolerating TF well. Positive BM. RN does state that employee here in the hospital has recognized patient in the community and may have a name. Awaiting patient advocacy to return tomorrow for possibly determining name of patient and contacting family. Objective Vitals Vital Signs Date Time Temp Pulse Resp B/P Pulse Ox O2 Delivery O2 Flow Rate FiO2 05/14/17 08:32 96.8 72 18 133/84 100 05/14/17 04:05 98.4 68 18 120/66 96 05/14/17 00:11 98.0 70 16 117/65 95 05/13/17 16:41 97.9 77 18 119/71 97 05/13/17 12:37 99.0 67 18 177/80 97 I/O 05/13/17 05/13/17 05/13/17 05/14/17 05/14/17 05/14/17 07:00 15:00 23:00 07:00 15:00 23:00 Intake Total 546 ml 626 ml 0 ml Balance 546 ml 626 ml 0 ml Intake Oral 0 ml 0 ml Tube Feeding 546 ml 536 ml Tube Irrigant 90 ml # Voids 2 3 2 # Bowel Movements 1 0 Result Diagram: 05/11/17 0630 05/11/17 0630 Imaging Last Impressions Chest X-Ray 05/04/17 0000 Signed Impressions: Service Date/Time: April 05:29 - CONCLUSION: 1. Dobbhoff catheter tip in the distal stomach. 2. The lungs are clear. Phillip Moss MD Head CT 04/25/17 0000 Signed Impressions: Service Date/Time: Tuesday, April 25, 2017 18:02 - CONCLUSION: 1. Evolving left thalamic hematoma. No new hemorrhage. Adi Quarles MD Abdomen X-Ray 04/12/17 1538 Signed Impressions: Service Date/Time: Wednesday, April 12, 2017 17:29 - CONCLUSION: Nonobstructive bowel gas pattern. Suresh Zapata MD Neck CTA 04/10/17 0000 Signed Impressions: Service Date/Time: Monday, April 10, 2017 22:28 - CONCLUSION: The internal carotid arteries are normal bilaterally. No significant atherosclerotic disease is noted. Eliud Du MD Head CTA 04/10/17 0000 Signed Impressions: Service Date/Time: Monday, April 10, 2017 22:50 - CONCLUSION: Mild dilatation of the basilar tip without discrete aneurysm. Some narrowing of the left middle cerebral branch after the bifurcation. Prominent left thalamic hemorrhage. Eliud Du MD Objective Remarks GENERAL: Well-developed patient. Nonverbal, lying in bed in nad. SKIN: Warm and dry. HEAD: Normocephalic. PEG Tube to left mid abdomen. Dressing c/d/i. EYES: No scleral icterus. No injection or drainage. NECK: trachea midline. No JVD. CARDIOVASCULAR: Regular rate and rhythm. 3/6 blowing murmur noted. RESPIRATORY: Breath sounds equal bilaterally. No accessory muscle use. GASTROINTESTINAL: Abdomen soft, non-tender, nondistended. MUSCULOSKELETAL: No cyanosis, or edema. Spontaneous movement to left upper extremity, following commands today in left upper and lower extremities. Tracking with eyes. Right upper and lower extremities flaccid. Procedures None. A/P Assessment and Plan Patient is a middle-aged female with unknown identity who was brought to the hospital on 04/10/2017 due to altered mental status, right sided weakness with a left-jacobs gaze. Upon presentation, she was found to have BP around 250/[address] elevation in V1-V3 and T wave inversions in V5 , V6. Cardene drip was initiated and a CT head was done with suspicion of ICH. Cardiology attributed EKG changes to probable ICH. CT head indeed confirmed ICH with intraventricular extension. 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 - No surgical intervention as per Dr. Wang, recommended to keep systolic BP around 120 - 150. BP well controlled. - Neurology following, ok for discharge to rehab. CT head reviewed showing evolving left thalamic hematoma, no new hemorrhage. - H/H stable. Dysphagia - Post PEG placement 05/09/17. In place, clean, dry, intact. TF continued. UTI with E Coli and Klebsiella, resolved. - Patient asymptomatic, afebrile, vitals stable. Ceftriaxone started 04/22/17 , stopped 04/30/17. Repeat UA negative. Hypertension, chronic: controlled. - Currently on Amlodipine 10mg Qday, Clonidine 0.2mg Q8hrs, Hydralazine 100 mg PO Q8hrs, Metoprolol 50mg BID. - Continue Lisinopril from 20mg Qday to 40 mgQday. - Continue Hydralazine 100mg Q8hrs. - Monitor BP. 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 Oral thrush: Start nystatin swish and swallow on tongue. Spoke with RN to swab tongue with liquid since patient unable to swallow. GI Prophylaxis: Pepcid. DVT Prophylaxis: TEDs. Pharmacological DVT prophylaxis held at this time due to pt's thalamic bleed. Will initiate once cleared by neuro. Full code. Discharge Planning May possibly have a lead to patient's name. Will contact patient advocate tomorrow to work on this. Last CM note: 05/10/17 2:30pm: Pt remains a Nichol Holley with [employer] exhausting all avenues of idenification. CM had attempted to have [employer] in to finger print pt and was informed that they were unable to provide that service unless it is a criminal case or a next of kin notification. Veena Calvillo May 14, 2017 11:58
[2017-05-14 12:15] VITALS: BP 123/76; PULSE 63; RESP 16; TEMP 97.9; O2SAT 96
[2017-05-14] MEDS: NYSTATIN SUSP 500,000 U/5 ML CUP SWISH-SWAL SCH ×3 (13:34→21:38)
[2017-05-14 16:04] VITALS: BP 111/83; PULSE 67; RESP 18; TEMP 99; O2SAT 99
[2017-05-14 20:00] VITALS: BP 129/70; PULSE 59; RESP 20; TEMP 98.7; O2SAT 96
[2017-05-15] VITALS: BP 111/67; PULSE 68; RESP 20; TEMP 98.8; O2SAT 97
[2017-05-15] MEDS: CHLORHEXIDINE GLUCONATE 2 % 1 PACK (2 CLOTHS) TOP SCH (03:06)
[2017-05-15] MEDS: cloNIDine HCL 0.2 MG TAB PO SCH ×3 (06:08→22:10)
[2017-05-15] MEDS: hydrALAZINE HCL 50 MG TAB PO SCH ×3 (06:08→22:10)
[2017-05-15 06:13] VITALS: BP 125/61; PULSE 69; RESP 20; TEMP 98.7; O2SAT 95
[2017-05-15 08:00] VITALS: BP 107/62; PULSE 76; RESP 18; TEMP 98.8; O2SAT 96
[2017-05-15] MEDS: LISINOPRIL 20 MG TAB PO SCH (08:50)
[2017-05-15] MEDS: LANSOPRAZOLE SOLUTAB 30 MG TAB G-TUBE SCH (08:50)
[2017-05-15] MEDS: METOPROLOL TARTRATE 50 MG TAB PO SCH ×2 (08:50→22:09)
[2017-05-15] MEDS: DOCUSATE SODIUM 50 MG/SENNA 8.6 MG TAB PO SCH ×2 (08:51→22:10)
[2017-05-15] MEDS: NYSTATIN SUSP 500,000 U/5 ML CUP SWISH-SWAL SCH ×4 (08:51→22:10)
[2017-05-15] MEDS: SODIUM CHLORIDE 0.9% FLUSH 10 ML FLUSH SCH ×2 (08:52→22:10)
[2017-05-15] MEDS: LACTIC ACID (AMMONIUM LACTATE) 12% LOTION 225 GM BTL TOPICAL SCH ×2 (08:52→22:10)
[2017-05-15 11:59] VITALS: BP 120/73; PULSE 81; RESP 14; TEMP 98; O2SAT 97
--- NOTE | 2017-05-15 15:15 | HHI.PR ---
Subjective Remarks Follow up intracranial hemorrhage. Patient seen and examined today. Lying in bed awake tracks with her eyes to voice. Pt observed with left hand grasp and moving left upper extremity spontaneously. Giving thumbs up sign. Spoke to RN,(Tahjyanet) no acute events overnight or since start of shift. Objective Vitals Vital Signs Date Time Temp Pulse Resp B/P Pulse Ox O2 Delivery O2 Flow Rate FiO2 05/15/17 11:59 98.0 81 14 120/73 97 05/15/17 08:00 98.8 76 18 107/62 96 05/15/17 06:13 98.7 69 20 125/61 95 05/15/17 00:00 98.8 68 20 111/67 97 05/14/17 20:00 98.7 59 20 129/70 96 05/14/17 16:04 99.0 67 18 111/83 99 I/O 05/14/17 05/14/17 05/14/17 05/15/17 05/15/17 05/15/17 07:00 15:00 23:00 07:00 15:00 23:00 Intake Total 0 ml 1170 ml 700 ml Balance 0 ml 1170 ml 700 ml Intake Oral 0 ml Tube Feeding 850 ml 500 ml Tube Irrigant 120 ml Other 200 ml 200 ml # Voids 2 # Bowel Movements 0 Result Diagram: 05/11/17 0630 05/11/17 0630 Imaging Last Impressions Chest X-Ray 05/04/17 0000 Signed Impressions: Service Date/Time: April 05:29 - CONCLUSION: 1. Dobbhoff catheter tip in the distal stomach. 2. The lungs are clear. Phillip Moss MD Head CT 04/25/17 0000 Signed Impressions: Service Date/Time: Tuesday, April 25, 2017 18:02 - CONCLUSION: 1. Evolving left thalamic hematoma. No new hemorrhage. Adi Quarles MD Abdomen X-Ray 04/12/17 1538 Signed Impressions: Service Date/Time: Wednesday, April 12, 2017 17:29 - CONCLUSION: Nonobstructive bowel gas pattern. Suresh Zapata MD Neck CTA 04/10/17 0000 Signed Impressions: Service Date/Time: Monday, April 10, 2017 22:28 - CONCLUSION: The internal carotid arteries are normal bilaterally. No significant atherosclerotic disease is noted. Eliud A. Sevigny, MD Head CTA 04/10/17 0000 Signed Impressions: Service Date/Time: Monday, April 10, 2017 22:50 - CONCLUSION: Mild dilatation of the basilar tip without discrete aneurysm. Some narrowing of the left middle cerebral branch after the bifurcation. Prominent left thalamic hemorrhage. Eliud Du MD Objective Remarks GENERAL: pt laying a bed, sleeping yet easily awakened with eyes mostly closed, NAD. NG tube in place with food being delivered. SKIN: Warm and dry. Lotion noted to have been applied to both feet. HEAD: Normocephalic. EYES: No scleral icterus. No injection or drainage. CARDIOVASCULAR: Regular rate and rhythm without murmurs, gallops, or rubs. RESPIRATORY: Breath sounds equal bilaterally. No accessory muscle use. GASTROINTESTINAL: Abdomen soft, non-tender, nondistended. MUSCULOSKELETAL: No cyanosis, or edema. NEUROLOGICAL: Pt with left hand in soft restraint. Right hemiplegia continues. Following limited commands. Procedures Peg Tube placed 05/08/17 (Dr. De Los Santos) Medications and IVs Current Medications Medications (Trade) Dose Ordered Sig/Reymundo Route Start Time Stop Time Status Last Admin (NS Flush) 2 ml UNSCH PRN .XX 04/10/17 22:00 05/01/17 04:49 (NS Flush) 2 ml BID .XX 04/11/17 09:00 05/15/17 08:52 (Tylenol) 650 mg Q6H PRN PO 04/10/17 22:00 04/26/17 13:46 (Morphine Inj) 2 mg Q2H PRN IV 04/10/17 22:00 04/18/17 21:05 (Zofran Inj) 4 mg Q6H PRN IV 04/10/17 22:00 (Reglan Inj) 10 mg Q6H PRN IV 04/10/17 22:00 (Compazine Supp) 25 mg Q12H PRN RECTAL 04/10/17 22:00 Miscellaneous Information 1 Q361D XX 04/10/17 22:00 04/10/17 22:00 (Chlorhexidine 2% Cloth) Taper DAILY@04 TOP 04/11/17 04:00 04/07/18 03:59 04/22/17 04:00 (Chlorhexidine 2% Cloth) 3 pack UNSCH PRN TOP 04/10/17 22:00 (Evelyn-Colace) 1 tab BID PO 04/11/17 09:00 05/15/17 08:51 (Milk Of Magnesia Liq) 30 ml Q12H PRN PO 04/10/17 22:00 (Senokot) 17.2 mg Q12H PRN PO 04/10/17 22:00 05/08/17 21:29 (Dulcolax Supp) 10 mg DAILY PRN RECTAL 04/10/17 22:00 (Lactulose Liq) 30 ml DAILY PRN PO 04/10/17 22:00 04/24/17 08:44 (Apresoline Inj) 20 mg Q4H PRN IV PUSH 04/12/17 08:15 04/16/17 17:38 (Norvasc) 10 mg DAILY PO 04/14/17 19:45 05/14/17 08:42 (Vasotec Inj) 1.25 mg Q6H PRN IV PUSH 04/15/17 01:15 05/13/17 01:22 (Nitroglycerin 2% Oint) 2 inch Q6HR PRN TOPICAL 04/15/17 06:00 04/16/17 12:34 (Pill Splitter) 1 ea UNSCH PRN OTHER 04/20/17 17:15 (Lopressor) 50 mg BID PO 04/24/17 21:00 05/14/17 21:38 (Catapres) 0.2 mg Q8HR PO 04/26/17 22:00 05/15/17 14:18 (Apresoline) 100 mg Q8HR PO 04/27/17 22:00 05/15/17 14:18 (Prinivil) 40 mg DAILY PO 04/28/17 09:00 05/14/17 08:42 (Lac-Hydrin 12% Lotion) 1 applic BID TOPICAL 05/04/17 14:00 05/15/17 08:52 (Prevacid Odt) 30 mg DAILY G-TUBE 05/10/17 09:00 05/15/17 08:50 (Mycostatin Liq) 5 ml QID SWISH-SWAL 05/14/17 13:00 05/15/17 14:19 Urinary Catheter: Yes Assessment to: Continue Cruz insert reason: Prolonged Immobilization A/P Assessment and Plan Patient is a middle-aged female with unknown identity who was brought to the hospital on 04/10/2017 due to altered mental status, right sided weakness with a left-jacobs gaze. Upon presentation, she was found to have BP around 250/[address] elevation in V1-V3 and T wave inversions in V5 , V6. Cardene drip was initiated and a CT head was done with suspicion of ICH. Cardiology attributed EKG changes to probable ICH. CT head indeed confirmed ICH with intraventricular extension. 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 - No surgical intervention as per Dr. Wang, recommended to keep systolic BP around 120 - 150. BP well controlled. - Neurology following, ok for discharge to rehab. CT head reviewed showing evolving left thalamic hematoma, no new hemorrhage. - H/H stable. Dysphagia - Post PEG placement 05/09/17. In place, clean, dry, intact. TF continued. UTI with E Coli and Klebsiella, resolved. - Patient asymptomatic, afebrile, vitals stable. Ceftriaxone started 04/22/17 , stopped 04/30/17. Repeat UA negative. Hypertension, chronic: controlled. - Currently on Amlodipine 10mg Qday, Clonidine 0.2mg Q8hrs, Hydralazine 100 mg PO Q8hrs, Metoprolol 50mg BID. - Continue Lisinopril from 20mg Qday to 40 mgQday. - Continue Hydralazine 100mg Q8hrs. - Monitor BP. 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 Oral thrush: Start nystatin swish and swallow on tongue. RN to swab tongue with liquid since patient unable to swallow. GI Prophylaxis: Pepcid. DVT Prophylaxis: TEDs. Pharmacological DVT prophylaxis held at this time due to pt's thalamic bleed. Will initiate once cleared by neuro. Full code. Discussed with RN (Juan) and Dr. Ferro. Discharge Planning Discharge planning is in question until pt's identity is determined. Leonid Pederson Jr. May 15, 2017 15:15
[2017-05-15 16:00] VITALS: BP 110/60; PULSE 72; RESP 12; TEMP 98.7; O2SAT 96
[2017-05-15 20:00] VITALS: BP 130/75; PULSE 93; RESP 22; TEMP 98.3; O2SAT 97
[2017-05-16] VITALS (7 sets, daily range): BP systolic 110–176; BP diastolic 69–90; PULSE 66–83; RESP 18–21; TEMP 97–98.8; O2SAT 97–99
[2017-05-16] MEDS: CHLORHEXIDINE GLUCONATE 2 % 1 PACK (2 CLOTHS) TOP SCH (03:06)
[2017-05-16] MEDS: hydrALAZINE HCL 50 MG TAB PO SCH ×3 (06:17→22:00)
[2017-05-16] MEDS: cloNIDine HCL 0.2 MG TAB PO SCH ×3 (06:17→22:01)
[2017-05-16] MEDS: LANSOPRAZOLE SOLUTAB 30 MG TAB G-TUBE SCH (09:00)
[2017-05-16] MEDS: LACTIC ACID (AMMONIUM LACTATE) 12% LOTION 225 GM BTL TOPICAL SCH ×2 (09:00→22:00)
[2017-05-16] MEDS: NYSTATIN SUSP 500,000 U/5 ML CUP SWISH-SWAL SCH ×4 (09:00→22:01)
[2017-05-16] MEDS: SODIUM CHLORIDE 0.9% FLUSH 10 ML FLUSH SCH ×2 (09:00→22:00)
[2017-05-16] MEDS: DOCUSATE SODIUM 50 MG/SENNA 8.6 MG TAB PO SCH ×2 (09:00→22:00)
[2017-05-16] MEDS: LISINOPRIL 20 MG TAB PO SCH (09:00)
[2017-05-16] MEDS: METOPROLOL TARTRATE 50 MG TAB PO SCH ×2 (09:00→22:00)
--- NOTE | 2017-05-16 15:03 | HHI.PR ---
Subjective Remarks Follow up intracranial hemorrhage. Patient seen and examined today. Lying in bed awake tracks with her eyes to voice. Pt observed with left hand grasp and moving left upper extremity spontaneously. Giving thumbs up sign. Pt also evidenced following of commands: smiled, stuck tongue out, and minimally moved her left foot. Spoke to RN,(Evonne) no acute events overnight or since start of shift. Objective Vitals Vital Signs Date Time Temp Pulse Resp B/P Pulse Ox O2 Delivery O2 Flow Rate FiO2 05/16/17 12:25 97.7 66 18 128/86 97 05/16/17 08:00 97.5 71 18 127/72 97 05/16/17 06:15 68 138/73 05/16/17 04:00 97.0 75 18 131/85 98 05/16/17 00:00 97.6 76 21 110/69 97 05/15/17 20:00 98.3 93 22 130/75 97 05/15/17 16:00 98.7 72 12 110/60 96 I/O 05/15/17 05/15/17 05/15/17 05/16/17 05/16/17 05/16/17 07:00 15:00 23:00 07:00 15:00 23:00 Intake Total 700 ml 1220 ml 960 ml Balance 700 ml 1220 ml 960 ml Tube Feeding 500 ml 720 ml 720 ml Other 200 ml 500 ml 240 ml # Voids 2 0 # Bowel Movements 1 0 Objective Remarks GENERAL: pt laying a bed, sleeping yet easily awakened with eyes mostly closed, NAD. SKIN: Warm and dry. Lotion noted to have been applied to both feet. HEAD: Normocephalic. EYES: No scleral icterus. No injection or drainage. CARDIOVASCULAR: Regular rate and rhythm without murmurs, gallops, or rubs. RESPIRATORY: Breath sounds equal bilaterally. No accessory muscle use. GASTROINTESTINAL: Abdomen soft, non-tender, nondistended. PEG tube present. MUSCULOSKELETAL: No cyanosis, or edema. NEUROLOGICAL: Pt with left hand in soft restraint. Right hemiplegia continues. Following more commands, as noted in subjective portion of report. Procedures Peg Tube placed 05/08/17 (Dr. De Los Santos) Medications and IVs Current Medications Medications (Trade) Dose Ordered Sig/Reymundo Route Start Time Stop Time Status Last Admin (NS Flush) 2 ml UNSCH PRN .XX 6/5/17 22:00 05/01/17 04:49 (NS Flush) 2 ml BID .XX 04/11/17 09:00 05/16/17 09:00 (Tylenol) 650 mg Q6H PRN PO 04/10/17 22:00 04/26/17 13:46 (Morphine Inj) 2 mg Q2H PRN IV 04/10/17 22:00 04/18/17 21:05 (Zofran Inj) 4 mg Q6H PRN IV 04/10/17 22:00 (Reglan Inj) 10 mg Q6H PRN IV 04/10/17 22:00 (Compazine Supp) 25 mg Q12H PRN RECTAL 04/10/17 22:00 Miscellaneous Information 1 Q361D XX 04/10/17 22:00 04/10/17 22:00 (Chlorhexidine 2% Cloth) Taper DAILY@04 TOP 04/11/17 04:00 04/07/18 03:59 04/22/17 04:00 (Chlorhexidine 2% Cloth) 3 pack UNSCH PRN TOP 04/10/17 22:00 (Evelyn-Colace) 1 tab BID PO 04/11/17 09:00 05/16/17 09:00 (Milk Of Magnesia Liq) 30 ml Q12H PRN PO 04/10/17 22:00 (Senokot) 17.2 mg Q12H PRN PO 04/10/17 22:00 05/08/17 21:29 (Dulcolax Supp) 10 mg DAILY PRN RECTAL 04/10/17 22:00 (Lactulose Liq) 30 ml DAILY PRN PO 04/10/17 22:00 04/24/17 08:44 (Apresoline Inj) 20 mg Q4H PRN IV PUSH 04/12/17 08:15 04/16/17 17:38 (Norvasc) 10 mg DAILY PO 04/14/17 19:45 05/16/17 09:00 (Vasotec Inj) 1.25 mg Q6H PRN IV PUSH 04/15/17 01:15 05/13/17 01:22 (Nitroglycerin 2% Oint) 2 inch Q6HR PRN TOPICAL 04/15/17 06:00 04/16/17 12:34 (Pill Splitter) 1 ea UNSCH PRN OTHER 04/20/17 17:15 (Lopressor) 50 mg BID PO 04/24/17 21:00 05/16/17 09:00 (Catapres) 0.2 mg Q8HR PO 04/26/17 22:00 05/16/17 14:29 (Apresoline) 100 mg Q8HR PO 04/27/17 22:00 05/16/17 14:29 (Prinivil) 40 mg DAILY PO 04/28/17 09:00 05/16/17 09:00 (Lac-Hydrin 12% Lotion) 1 applic BID TOPICAL 05/04/17 14:00 05/16/17 09:00 (Prevacid Odt) 30 mg DAILY G-TUBE 05/10/17 09:00 05/16/17 09:00 (Mycostatin Liq) 5 ml QID SWISH-SWAL 05/14/17 13:00 05/16/17 13:25 Urinary Catheter: No A/P Assessment and Plan Patient is a middle-aged female with unknown identity who was brought to the hospital on 04/10/2017 due to altered mental status, right sided weakness with a left-jacobs gaze. Upon presentation, she was found to have BP around 250/[address] elevation in V1-V3 and T wave inversions in V5 , V6. Cardene drip was initiated and a CT head was done with suspicion of ICH. Cardiology attributed EKG changes to probable ICH. CT head indeed confirmed ICH with intraventricular extension. 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 - No surgical intervention as per Dr. Wang, recommended to keep systolic BP around 120 - 150. BP well controlled. - Neurology following, ok for discharge to rehab. CT head reviewed showing evolving left thalamic hematoma, no new hemorrhage. - H/H stable. Dysphagia - Post PEG placement 05/09/17. In place, clean, dry, intact. TF continued. UTI with E Coli and Klebsiella, resolved. - Patient asymptomatic, afebrile, vitals stable. Ceftriaxone started 04/22/17 , stopped 04/30/17. Repeat UA negative. Hypertension, chronic: controlled. - Currently on Amlodipine 10mg Qday, Clonidine 0.2mg Q8hrs, Hydralazine 100 mg PO Q8hrs, Metoprolol 50mg BID. - Continue Lisinopril from 20mg Qday to 40 mgQday. - Continue Hydralazine 100mg Q8hrs. - Monitor BP. 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 Oral thrush: Start nystatin swish and swallow on tongue. RN to swab tongue with liquid since patient unable to swallow. -Thrush improving. GI Prophylaxis: Pepcid. DVT Prophylaxis: TEDs. Pharmacological DVT prophylaxis held at this time due to pt's thalamic bleed. Will initiate once cleared by neuro. Full code. Discussed with RN (Evonne) and Dr. Ferro. Discharge Planning Discharge planning is in question until pt's identity is determined. Leonid Pederson Jr. May 16, 2017 15:03
[2017-05-17] VITALS (7 sets, daily range): BP systolic 121–154; BP diastolic 84–96; PULSE 62–99; RESP 17–20; TEMP 95.9–100; O2SAT 96–98
[2017-05-17] MEDS: CHLORHEXIDINE GLUCONATE 2 % 1 PACK (2 CLOTHS) TOP SCH (04:00)
[2017-05-17] MEDS: hydrALAZINE HCL 50 MG TAB PO SCH ×3 (05:17→22:25)
[2017-05-17] MEDS: cloNIDine HCL 0.2 MG TAB PO SCH ×3 (05:17→22:25)
[2017-05-17] MEDS: DOCUSATE SODIUM 50 MG/SENNA 8.6 MG TAB PO SCH ×2 (08:45→22:25)
[2017-05-17] MEDS: METOPROLOL TARTRATE 50 MG TAB PO SCH ×2 (08:45→22:25)
[2017-05-17] MEDS: LISINOPRIL 20 MG TAB PO SCH (08:45)
[2017-05-17] MEDS: LANSOPRAZOLE SOLUTAB 30 MG TAB G-TUBE SCH (08:45)
[2017-05-17] MEDS: SODIUM CHLORIDE 0.9% FLUSH 10 ML FLUSH SCH ×2 (08:46→22:25)
[2017-05-17] MEDS: LACTIC ACID (AMMONIUM LACTATE) 12% LOTION 225 GM BTL TOPICAL SCH ×2 (08:46→22:26)
[2017-05-17] MEDS: NYSTATIN SUSP 500,000 U/5 ML CUP SWISH-SWAL SCH ×4 (08:46→22:26)
[2017-05-17 10:37] LABS: HEMATOCRIT 41.3 % (35.0-46.0); HEMOGLOBIN 13.5 GM/DL (11.6-15.3); MEAN CELL VOLUME 88.4 FL (80.0-100.0); MEAN CORPUSCULAR HGB CONC 32.8 % (32.0-36.0); MEAN PLATELET VOLUME 11.2 FL (7.0-11.0); PLATELET COUNT 181 TH/MM3 (150-450); RED BLOOD COUNT 4.67 MIL/MM3 (4.00-5.30); RED CELL DISTRIBUTION WIDTH 13.9 % (11.6-17.2); WHITE BLOOD COUNT 5.2 TH/MM3 (4.0-11.0)
[2017-05-17 11:06] LABS: BICARBONATE 29.3 MEQ/L (21.0-32.0); CALCIUM 8.8 MG/DL (8.5-10.1); CREATININE 0.49 MG/DL (0.50-1.00)
--- NOTE | 2017-05-17 14:03 | HHI.PR ---
Subjective Remarks Follow up intracranial hemorrhage. Patient seen and examined today. Lying in bed awake tracks with her eyes to voice. Pt's name is Treva Miranda. Pt nodded her head when asked if that was her name. Pt observed with left hand grasp and moving left upper extremity spontaneously. Giving thumbs up sign. Pt also evidenced following of commands: smiled, stuck tongue out, and minimally moved her left foot. Per RN,(Evonne) no acute events overnight or since start of shift. Per SLT (Марина) Pt is working in therapy and was placed on a diet of pureed foods and honey thickened liquids. Objective Vitals Vital Signs Date Time Temp Pulse Resp B/P Pulse Ox O2 Delivery O2 Flow Rate FiO2 05/17/17 12:19 95.9 64 20 121/86 97 05/17/17 08:05 97.9 77 20 140/92 96 05/17/17 06:41 96.6 66 17 146/85 96 05/17/17 00:00 96.6 62 17 148/84 96 05/16/17 20:00 98.7 80 18 176/90 99 05/16/17 16:00 98.8 83 18 128/77 98 I/O 05/16/17 05/16/17 05/16/17 05/17/17 05/17/17 05/17/17 07:00 15:00 23:00 07:00 15:00 23:00 Intake Total 960 ml Balance 960 ml Tube Feeding 720 ml Other 240 ml # Voids 0 3 1 3 # Bowel Movements 0 0 1 Result Diagram: 05/17/17 1017 05/17/17 1017 Objective Remarks GENERAL: pt laying a bed, awake and tracking people with her eyes, NAD. SKIN: Warm and dry. Lotion noted to have been applied to both feet. HEAD: Normocephalic. EYES: No scleral icterus. No injection or drainage. CARDIOVASCULAR: Regular rate and rhythm without murmurs, gallops, or rubs. RESPIRATORY: Breath sounds equal bilaterally. No accessory muscle use. GASTROINTESTINAL: Abdomen soft, non-tender, nondistended. PEG tube present. MUSCULOSKELETAL: No cyanosis, or edema. NEUROLOGICAL: Right hemiplegia continues. Following more commands, as noted in subjective portion of report. Pt evidenced smiling and nodded her head when said pt's name. No left foot movement noted today. Procedures Peg Tube placed 05/08/17 (Dr. De Los Santos) Medications and IVs Current Medications Medications (Trade) Dose Ordered Sig/Reymundo Route Start Time Stop Time Status Last Admin (NS Flush) 2 ml UNSCH PRN .XX 04/10/17 22:00 05/01/17 04:49 (NS Flush) 2 ml BID .XX 04/11/17 09:00 05/17/17 08:46 (Tylenol) 650 mg Q6H PRN PO 04/10/17 22:00 04/26/17 13:46 (Morphine Inj) 2 mg Q2H PRN IV 04/10/17 22:00 04/18/17 21:05 (Zofran Inj) 4 mg Q6H PRN IV 04/10/17 22:00 (Reglan Inj) 10 mg Q6H PRN IV 04/10/17 22:00 (Compazine Supp) 25 mg Q12H PRN RECTAL 04/10/17 22:00 Miscellaneous Information 1 Q361D XX 04/10/17 22:00 04/10/17 22:00 (Chlorhexidine 2% Cloth) Taper DAILY@04 TOP 04/11/17 04:00 04/07/18 03:59 04/22/17 04:00 (Chlorhexidine 2% Cloth) 3 pack UNSCH PRN TOP 04/10/17 22:00 (Evelyn-Colace) 1 tab BID PO 04/11/17 09:00 05/17/17 08:45 (Milk Of Magnesia Liq) 30 ml Q12H PRN PO 04/10/17 22:00 (Senokot) 17.2 mg Q12H PRN PO 04/10/17 22:00 05/08/17 21:29 (Dulcolax Supp) 10 mg DAILY PRN RECTAL 04/10/17 22:00 (Lactulose Liq) 30 ml DAILY PRN PO 04/10/17 22:00 04/24/17 08:44 (Apresoline Inj) 20 mg Q4H PRN IV PUSH 04/12/17 08:15 04/16/17 17:38 (Norvasc) 10 mg DAILY PO 04/14/17 19:45 05/17/17 08:45 (Vasotec Inj) 1.25 mg Q6H PRN IV PUSH 04/15/17 01:15 05/13/17 01:22 (Nitroglycerin 2% Oint) 2 inch Q6HR PRN TOPICAL 04/15/17 06:00 04/16/17 12:34 (Pill Splitter) 1 ea UNSCH PRN OTHER 04/20/17 17:15 (Lopressor) 50 mg BID PO 04/24/17 21:00 05/17/17 08:45 (Catapres) 0.2 mg Q8HR PO 04/26/17 22:00 05/17/17 05:17 (Apresoline) 100 mg Q8HR PO 04/27/17 22:00 05/17/17 05:17 (Prinivil) 40 mg DAILY PO 04/28/17 09:00 05/17/17 08:45 (Lac-Hydrin 12% Lotion) 1 applic BID TOPICAL 05/04/17 14:00 05/17/17 08:46 (Prevacid Odt) 30 mg DAILY G-TUBE 05/10/17 09:00 05/17/17 08:45 (Mycostatin Liq) 5 ml QID SWISH-SWAL 05/14/17 13:00 05/17/17 13:35 Urinary Catheter: No A/P Assessment and Plan Ms. Miranda is 62 yo female whose identity was unknown until 09/22 was brought to the hospital on 04/10/2017 due to altered mental status, right sided weakness with a left-jacobs gaze. Upon presentation, she was found to have BP around 250/[address] elevation in V1-V3 and T wave inversions in V5, V6. Cardene drip was initiated and a CT head was done with suspicion of ICH. Cardiology attributed EKG changes to probable ICH. CT head indeed confirmed ICH with intraventricular extension. 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 - No surgical intervention as per Dr. Wang, recommended to keep systolic BP around 120 - 150. BP well controlled. - Neurology following, ok for discharge to rehab. CT head reviewed showing evolving left thalamic hematoma, no new hemorrhage. - H/H stable. Dysphagia - Post PEG placement 05/09/17. In place, clean, dry, intact. TF continued. -Pureed diet with honey thickened liquids initiated on 05/16/17 UTI with E Coli and Klebsiella, resolved. - Patient asymptomatic, afebrile, vitals stable. Ceftriaxone started 04/22/17 , stopped 04/30/17. Repeat UA negative. Hypertension, chronic: controlled. - Currently on Amlodipine 10mg Qday, Clonidine 0.2mg Q8hrs, Hydralazine 100 mg PO Q8hrs, Metoprolol 50mg BID. - Continue Lisinopril from 20mg Qday to 40 mgQday. - Continue Hydralazine 100mg Q8hrs. - Monitor BP. -BP noted to be elevated on the evening of 05/16/17; Vasotec is available for PRN use for systolic pressure greater than 160 and diastolic greater than 90. 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 Oral thrush: Start nystatin swish and swallow on tongue. RN to swab tongue with liquid since patient unable to swallow. -Thrush improving. GI Prophylaxis: Pepcid. DVT Prophylaxis: TEDs. Pharmacological DVT prophylaxis held at this time due to pt's thalamic bleed. Will initiate once cleared by neuro. Full code. Discussed with RN (Evonne), SLT (Марина) and Dr. Cano. Discharge Planning Discharge planning is in question until pt's identity is determined. Leonid Pederson Jr. May 17, 2017 14:03
[2017-05-17] MEDS: hydrALAZINE HCL 20 MG/ML VIAL IV PUSH PRN (20:39)
[2017-05-18 00:57] VITALS: BP 133/76; PULSE 65; RESP 18; TEMP 98.1; O2SAT 99
[2017-05-18] MEDS: CHLORHEXIDINE GLUCONATE 2 % 1 PACK (2 CLOTHS) TOP SCH (04:00)
[2017-05-18 05:09] VITALS: BP 152/85; PULSE 73; RESP 16; TEMP 99.7; O2SAT 97
[2017-05-18] MEDS: hydrALAZINE HCL 50 MG TAB PO SCH ×3 (05:50→21:00)
[2017-05-18] MEDS: cloNIDine HCL 0.2 MG TAB PO SCH ×3 (05:50→21:00)
[2017-05-18] MEDS: LANSOPRAZOLE SOLUTAB 30 MG TAB G-TUBE SCH (07:52)
[2017-05-18] MEDS: SODIUM CHLORIDE 0.9% FLUSH 10 ML FLUSH SCH ×2 (07:53→21:00)
[2017-05-18] MEDS: DOCUSATE SODIUM 50 MG/SENNA 8.6 MG TAB PO SCH ×2 (07:53→21:00)
[2017-05-18] MEDS: NYSTATIN SUSP 500,000 U/5 ML CUP SWISH-SWAL SCH ×4 (07:54→21:00)
[2017-05-18] MEDS: METOPROLOL TARTRATE 50 MG TAB PO SCH ×2 (07:54→21:00)
[2017-05-18] MEDS: LACTIC ACID (AMMONIUM LACTATE) 12% LOTION 225 GM BTL TOPICAL SCH ×2 (07:54→21:01)
[2017-05-18] MEDS: LISINOPRIL 20 MG TAB PO SCH (07:55)
[2017-05-18 08:17] VITALS: BP 111/64; PULSE 67; RESP 20; TEMP 98.5; O2SAT 96
[2017-05-18 12:21] VITALS: BP 146/87; PULSE 78; RESP 20; TEMP 97.7; O2SAT 96
--- NOTE | 2017-05-18 12:25 | HHI.PR ---
Subjective Remarks Follow up intracranial hemorrhage. Patient seen and examined today. Lying in bed awake tracks with her eyes to voice. Pt observed with left hand grasp and moving left upper extremity spontaneously. Pt also evidenced following of commands: smiled, stuck tongue out, and minimally moved her left foot. She denied pain, discomfort, nausea/vomiting. malaise. Per RN,(Lizz) no acute events overnight or since start of shift. RN reported pt didn't eat a great deal of breakfast and "seemed sleepy to me." Objective Vitals Vital Signs Date Time Temp Pulse Resp B/P Pulse Ox O2 Delivery O2 Flow Rate FiO2 05/18/17 08:17 98.5 67 20 111/64 96 05/18/17 05:09 99.7 73 16 152/85 97 05/18/17 00:57 98.1 65 18 133/76 99 05/17/17 21:32 95 147/89 05/17/17 20:11 100.0 99 18 154/96 96 05/17/17 16:07 99.3 79 20 149/85 98 05/17/17 12:19 95.9 64 20 121/86 97 I/O 05/17/17 05/17/17 05/17/17 05/18/17 05/18/17 05/18/17 07:00 15:00 23:00 07:00 15:00 23:00 # Voids 4 2 # Bowel Movements 2 0 Result Diagram: 05/17/17 1017 05/17/17 1017 Objective Remarks GENERAL: pt laying a bed, awake and tracking people with her eyes, NAD. Pt appeared to be less attentive/responsive than earlier this week. SKIN: Warm and dry. Lotion noted to have been applied to both feet. HEAD: Normocephalic. EYES: No scleral icterus. No injection or drainage. CARDIOVASCULAR: Regular rate and rhythm without murmurs, gallops, or rubs. RESPIRATORY: Breath sounds equal bilaterally. No accessory muscle use. GASTROINTESTINAL: Abdomen soft, non-tender, nondistended. PEG tube present. MUSCULOSKELETAL: No cyanosis, or edema. NEUROLOGICAL: Right hemiplegia continues. Pt followed fewer commands today than earlier in the week. Procedures Peg Tube placed 05/08/17 (Dr. De Los Santos) Medications and IVs Current Medications Medications (Trade) Dose Ordered Sig/Reymundo Route Start Time Stop Time Status Last Admin (NS Flush) 2 ml UNSCH PRN .XX 04/10/17 22:00 05/01/17 04:49 (NS Flush) 2 ml BID .XX 04/11/17 09:00 05/18/17 07:53 (Tylenol) 650 mg Q6H PRN PO 04/10/17 22:00 04/26/17 13:46 (Morphine Inj) 2 mg Q2H PRN IV 04/10/17 22:00 04/18/17 21:05 (Zofran Inj) 4 mg Q6H PRN IV 04/10/17 22:00 (Reglan Inj) 10 mg Q6H PRN IV 04/10/17 22:00 (Compazine Supp) 25 mg Q12H PRN RECTAL 04/10/17 22:00 Miscellaneous Information 1 Q361D XX 04/10/17 22:00 04/10/17 22:00 (Chlorhexidine 2% Cloth) Taper DAILY@04 TOP 04/11/17 04:00 04/07/18 03:59 04/22/17 04:00 (Chlorhexidine 2% Cloth) 3 pack UNSCH PRN TOP 04/10/17 22:00 (Evelyn-Colace) 1 tab BID PO 04/11/17 09:00 05/18/17 07:53 (Milk Of Magnesia Liq) 30 ml Q12H PRN PO 04/10/17 22:00 (Senokot) 17.2 mg Q12H PRN PO 04/10/17 22:00 05/08/17 21:29 (Dulcolax Supp) 10 mg DAILY PRN RECTAL 04/10/17 22:00 (Lactulose Liq) 30 ml DAILY PRN PO 04/10/17 22:00 04/24/17 08:44 (Apresoline Inj) 20 mg Q4H PRN IV PUSH 04/12/17 08:15 05/17/17 20:39 (Norvasc) 10 mg DAILY PO 04/14/17 19:45 05/18/17 07:56 (Vasotec Inj) 1.25 mg Q6H PRN IV PUSH 04/15/17 01:15 05/13/17 01:22 (Nitroglycerin 2% Oint) 2 inch Q6HR PRN TOPICAL 04/15/17 06:00 04/16/17 12:34 (Pill Splitter) 1 ea UNSCH PRN OTHER 04/20/17 17:15 (Lopressor) 50 mg BID PO 04/24/17 21:00 05/18/17 07:54 (Catapres) 0.2 mg Q8HR PO 04/26/17 22:00 05/18/17 05:50 (Apresoline) 100 mg Q8HR PO 04/27/17 22:00 05/18/17 05:50 (Prinivil) 40 mg DAILY PO 04/28/17 09:00 05/17/17 08:45 (Lac-Hydrin 12% Lotion) 1 applic BID TOPICAL 05/04/17 14:00 05/18/17 07:54 (Prevacid Odt) 30 mg DAILY G-TUBE 05/10/17 09:00 05/18/17 07:52 (Mycostatin Liq) 5 ml QID SWISH-SWAL 05/14/17 13:00 05/18/17 07:54 Urinary Catheter: No A/P Assessment and Plan Ms. Miranda is 62 yo female whose identity was unknown until 09/22 was brought to the hospital on 04/10/2017 due to altered mental status, right sided weakness with a left-jacobs gaze. Upon presentation, she was found to have BP around 250/[address] elevation in V1-V3 and T wave inversions in V5, V6. Cardene drip was initiated and a CT head was done with suspicion of ICH. Cardiology attributed EKG changes to probable ICH. CT head indeed confirmed ICH with intraventricular extension. 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 - No surgical intervention as per Dr. Wang, recommended to keep systolic BP around 120 - 150. BP well controlled. - Neurology following, ok for discharge to rehab. CT head reviewed showing evolving left thalamic hematoma, no new hemorrhage. - H/H stable. Dysphagia - Post PEG placement 05/09/17. In place, clean, dry, intact. TF continued. -Pureed diet with honey thickened liquids initiated on 05/16/17. -SLT continuing to follow/treat. UTI with E Coli and Klebsiella, resolved. - Patient asymptomatic, afebrile, vitals stable. Ceftriaxone started 04/22/17 , stopped 04/30/17. Repeat UA negative. Hypertension, chronic: controlled. - Currently on Amlodipine 10mg Qday, Clonidine 0.2mg Q8hrs, Hydralazine 100 mg PO Q8hrs, Metoprolol 50mg BID. - Continue Lisinopril from 20mg Qday to 40 mgQday. - Continue Hydralazine 100mg Q8hrs. - Monitor BP. -BP noted to be elevated on the evening of 05/16/17; Vasotec is available for PRN use for systolic pressure greater than 160 and diastolic greater than 90. 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 Oral thrush: Start nystatin swish and swallow on tongue. RN to swab tongue with liquid since patient unable to swallow. -Thrush improving. GI Prophylaxis: Pepcid. DVT Prophylaxis: TEDs. Pharmacological DVT prophylaxis held at this time due to pt's thalamic bleed. Will initiate once cleared by neuro. Full code. Discussed with pt, RN (Lizz) and Dr. Cano. Discharge Planning Discharge planning is in question until pt's identity is determined. Leonid Pederson Jr. May 18, 2017 12:25
[2017-05-18 16:09] VITALS: BP 132/81; PULSE 68; RESP 20; TEMP 97; O2SAT 96
[2017-05-18 20:00] VITALS: BP 174/97; PULSE 70; RESP 20; TEMP 99.3; O2SAT 100
[2017-05-19] VITALS (8 sets, daily range): BP systolic 120–148; BP diastolic 65–85; PULSE 70–75; RESP 18–20; TEMP 97.8–98.7; O2SAT 95–99
[2017-05-19] MEDS: CHLORHEXIDINE GLUCONATE 2 % 1 PACK (2 CLOTHS) TOP SCH (00:50)
[2017-05-19] MEDS: cloNIDine HCL 0.2 MG TAB PO SCH ×3 (05:07→22:13)
[2017-05-19] MEDS: hydrALAZINE HCL 50 MG TAB PO SCH ×3 (05:07→22:13)
[2017-05-19] MEDS: LANSOPRAZOLE SOLUTAB 30 MG TAB G-TUBE SCH (08:24)
[2017-05-19] MEDS: NYSTATIN SUSP 500,000 U/5 ML CUP SWISH-SWAL SCH ×4 (08:24→22:13)
[2017-05-19] MEDS: SODIUM CHLORIDE 0.9% FLUSH 10 ML FLUSH SCH ×2 (08:24→22:13)
[2017-05-19] MEDS: DOCUSATE SODIUM 50 MG/SENNA 8.6 MG TAB PO SCH ×2 (08:24→22:13)
[2017-05-19] MEDS: METOPROLOL TARTRATE 50 MG TAB PO SCH ×2 (08:25→22:13)
[2017-05-19] MEDS: LISINOPRIL 20 MG TAB PO SCH ×2 (08:25→09:59)
[2017-05-19] MEDS: LACTIC ACID (AMMONIUM LACTATE) 12% LOTION 225 GM BTL TOPICAL SCH ×2 (08:26→22:14)
--- NOTE | 2017-05-19 11:55 | HHI.PR ---
Subjective Remarks Follow up intracranial hemorrhage. Patient seen and examined today. Lying in bed awake tracks with her eyes to voice. Pt observed with left hand grasp and moving left upper extremity spontaneously. Pt also evidenced following of commands: smiled, stuck tongue out. She denied pain, discomfort, nausea/vomiting. malaise. Per RN,(Lizz) no acute events overnight or since start of shift. RN reported pt didn't eat a great deal of breakfast and "seemed sleepy to me." Per Rn, thrush continues to be an issue and is reported to be "better." Objective Vitals Vital Signs Date Time Temp Pulse Resp B/P Pulse Ox O2 Delivery O2 Flow Rate FiO2 05/19/17 09:54 133/78 05/19/17 09:16 98 05/19/17 08:26 97.8 72 20 120/73 99 05/19/17 04:00 98.7 74 18 130/70 96 05/19/17 00:00 98.7 71 18 131/80 99 05/18/17 20:00 99.3 70 20 174/97 100 05/18/17 16:09 97.0 68 20 132/81 96 05/18/17 12:21 97.7 78 20 146/87 96 I/O 05/18/17 05/18/17 05/18/17 05/19/17 05/19/17 05/19/17 07:00 15:00 23:00 07:00 15:00 23:00 Intake Total 1986 ml 571 ml Balance 1986 ml 571 ml Intake Oral 480 ml IV Total 0 ml 0 ml Tube Feeding 1056 ml 421 ml Other 450 ml 150 ml # Voids 2 3 1 # Bowel Movements 0 2 1 Result Diagram: 05/17/17 1017 05/17/17 1017 Objective Remarks GENERAL: pt laying a bed, awake and tracking people with her eyes, NAD. SKIN: Warm and dry. Lotion noted to have been applied to both feet. HEAD: Normocephalic. EYES: No scleral icterus. No injection or drainage. CARDIOVASCULAR: Regular rate and rhythm without murmurs, gallops, or rubs. RESPIRATORY: Breath sounds equal bilaterally. No accessory muscle use. GASTROINTESTINAL: Abdomen soft, non-tender, nondistended. PEG tube present. MUSCULOSKELETAL: No cyanosis, or edema. NEUROLOGICAL: Right hemiplegia continues. Pt followed several commands today. Appeared to be more alert than yesterday. Procedures Peg Tube placed 05/08/17 (Dr. De Los Santos) Medications and IVs Current Medications Medications (Trade) Dose Ordered Sig/Reymundo Route Start Time Stop Time Status Last Admin (NS Flush) 2 ml UNSCH PRN .XX 04/10/17 22:00 05/01/17 04:49 (NS Flush) 2 ml BID .XX 04/11/17 09:00 05/19/17 08:24 (Tylenol) 650 mg Q6H PRN PO 04/10/17 22:00 04/26/17 13:46 (Morphine Inj) 2 mg Q2H PRN IV 04/10/17 22:00 04/18/17 21:05 (Zofran Inj) 4 mg Q6H PRN IV 04/10/17 22:00 (Reglan Inj) 10 mg Q6H PRN IV 04/10/17 22:00 (Compazine Supp) 25 mg Q12H PRN RECTAL 04/10/17 22:00 Miscellaneous Information 1 Q361D XX 04/10/17 22:00 04/10/17 22:00 (Chlorhexidine 2% Cloth) 3 pack Taper DAILY@04 TOP 04/11/17 04:00 04/07/18 03:59 04/22/17 04:00 (Chlorhexidine 2% Cloth) 3 pack UNSCH PRN TOP 04/10/17 22:00 (Evelyn-Colace) 1 tab BID PO 04/11/17 09:00 05/19/17 08:24 (Milk Of Magnesia Liq) 30 ml Q12H PRN PO 04/10/17 22:00 (Senokot) 17.2 mg Q12H PRN PO 04/10/17 22:00 05/08/17 21:29 (Dulcolax Supp) 10 mg DAILY PRN RECTAL 04/10/17 22:00 (Lactulose Liq) 30 ml DAILY PRN PO 04/10/17 22:00 04/24/17 08:44 (Norvasc) 10 mg DAILY PO 04/14/17 19:45 05/19/17 08:25 (Vasotec Inj) 1.25 mg Q6H PRN IV PUSH 04/15/17 01:15 05/13/17 01:22 (Nitroglycerin 2% Oint) 2 inch Q6HR PRN TOPICAL 04/15/17 06:00 04/16/17 12:34 (Pill Splitter) 1 ea UNSCH PRN OTHER 04/20/17 17:15 (Lopressor) 50 mg BID PO 04/24/17 21:00 05/19/17 08:25 (Catapres) 0.2 mg Q8HR PO 04/26/17 22:00 05/19/17 05:07 (Apresoline) 100 mg Q8HR PO 04/27/17 22:00 05/19/17 05:07 (Prinivil) 40 mg DAILY PO 04/28/17 09:00 05/19/17 09:59 (Lac-Hydrin 12% Lotion) 1 applic BID TOPICAL 05/04/17 14:00 05/19/17 08:26 (Prevacid Odt) 30 mg DAILY G-TUBE 05/10/17 09:00 05/19/17 08:24 (Mycostatin Liq) 5 ml QID SWISH-SWAL 05/14/17 13:00 05/19/17 08:24 (Apresoline) 25 mg Q4HR PRN PEG 05/18/17 14:45 Urinary Catheter: No A/P Assessment and Plan Ms. Miranda is 62 yo female whose identity was unknown until 09/22 was brought to the hospital on 04/10/2017 due to altered mental status, right sided weakness with a left-jacobs gaze. Upon presentation, she was found to have BP around 250/[address] elevation in V1-V3 and T wave inversions in V5, V6. Cardene drip was initiated and a CT head was done with suspicion of ICH. Cardiology attributed EKG changes to probable ICH. CT head indeed confirmed ICH with intraventricular extension. 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 - No surgical intervention as per Dr. Wang, recommended to keep systolic BP around 120 - 150. BP well controlled. - Neurology following, ok for discharge to rehab. CT head reviewed showing evolving left thalamic hematoma, no new hemorrhage. - H/H stable. Dysphagia - Post PEG placement 05/09/17. In place, clean, dry, intact. TF continued. -Pureed diet with honey thickened liquids initiated on 05/16/17. -SLT continuing to follow/treat. -Pt is reported to be eating small amount of food; remains on tube feeding. UTI with E Coli and Klebsiella, resolved. - Patient asymptomatic, afebrile, vitals stable. Ceftriaxone started 04/22/17 , stopped 04/30/17. Repeat UA negative. Hypertension, chronic: controlled. - Currently on Amlodipine 10mg Qday, Clonidine 0.2mg Q8hrs, Hydralazine 100 mg PO Q8hrs, Metoprolol 50mg BID. - Continue Lisinopril from 20mg Qday to 40 mgQday. - Continue Hydralazine 100mg Q8hrs. - Monitor BP. -BP noted to be elevated on the evening of 05/16/17; Vasotec is available for PRN use for systolic pressure greater than 160 and diastolic greater than 90. -BP control discussed with Rn and Charge nurse. 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 Oral thrush: Start nystatin swish and swallow on tongue. RN to swab tongue with liquid since patient unable to swallow. -Thrush improving. GI Prophylaxis: Pepcid. DVT Prophylaxis: TEDs. Pharmacological DVT prophylaxis held at this time due to pt's thalamic bleed. Will initiate once cleared by neuro. Full code. Discussed with pt, RN (Lizz), Charge nurse (Natalie) and Dr. Cano. Discharge Planning Discharge planning is in question until pt's identity is determined. Leonid Pederson Jr. May 19, 2017 11:54
[2017-05-20] VITALS: BP 125/73; PULSE 81; RESP 20; TEMP 98.9; O2SAT 95
[2017-05-20 04:00] VITALS: BP 153/83; PULSE 80; RESP 20; TEMP 98.3; O2SAT 98
[2017-05-20] MEDS: CHLORHEXIDINE GLUCONATE 2 % 1 PACK (2 CLOTHS) TOP SCH (04:00)
[2017-05-20] MEDS: cloNIDine HCL 0.2 MG TAB PO SCH ×3 (06:22→23:30)
[2017-05-20] MEDS: hydrALAZINE HCL 50 MG TAB PO SCH ×3 (06:22→23:29)
[2017-05-20 08:00] VITALS: BP 132/81; PULSE 88; RESP 18; TEMP 98.4; O2SAT 97
[2017-05-20] MEDS: LISINOPRIL 20 MG TAB PO SCH (08:30)
[2017-05-20] MEDS: METOPROLOL TARTRATE 50 MG TAB PO SCH ×2 (08:30→23:30)
[2017-05-20] MEDS: DOCUSATE SODIUM 50 MG/SENNA 8.6 MG TAB PO SCH ×2 (08:30→23:30)
[2017-05-20] MEDS: SODIUM CHLORIDE 0.9% FLUSH 10 ML FLUSH SCH ×2 (08:30→21:00)
[2017-05-20] MEDS: LANSOPRAZOLE SOLUTAB 30 MG TAB G-TUBE SCH (08:30)
[2017-05-20] MEDS: LACTIC ACID (AMMONIUM LACTATE) 12% LOTION 225 GM BTL TOPICAL SCH ×2 (08:30→21:00)
[2017-05-20] MEDS: NYSTATIN SUSP 500,000 U/5 ML CUP SWISH-SWAL SCH ×4 (08:30→23:29)
[2017-05-20 11:49] VITALS: BP 150/84; PULSE 77; RESP 18; TEMP 98.1; O2SAT 96
--- NOTE | 2017-05-20 13:38 | HHI.PR ---
Subjective Remarks Follow up intracranial hemorrhage. Patient seen and examined today. Lying in bed awake tracks with her eyes to voice. Pt observed with left hand grasp and moving left upper extremity spontaneously. Pt seemingly attempted to vocalize, words were incoherent. Pt also evidenced following of commands: smiled, partially stuck tongue out. She denied pain, discomfort, nausea/vomiting. malaise. Per RN,(Helena) no acute events overnight or since start of shift. Per RN, thrush appeared to be "gone". Objective Vitals Vital Signs Date Time Temp Pulse Resp B/P Pulse Ox O2 Delivery O2 Flow Rate FiO2 05/20/17 11:49 98.1 77 18 150/84 96 05/20/17 08:00 98.4 88 18 132/81 97 05/20/17 04:00 98.3 80 20 153/83 98 05/20/17 00:00 98.9 81 20 125/73 95 05/19/17 20:00 98.5 75 20 148/85 95 05/19/17 15:58 98.2 72 20 141/65 98 I/O 05/19/17 05/19/17 05/19/17 05/20/17 05/20/17 05/20/17 07:00 15:00 23:00 07:00 15:00 23:00 Intake Total 571 ml 832 ml 830 ml 460 ml Balance 571 ml 832 ml 830 ml 460 ml IV Total 0 ml Tube Feeding 421 ml 632 ml 830 ml 360 ml Tube Irrigant 200 ml 100 ml Other 150 ml # Voids 1 1 3 1 # Bowel Movements 1 0 0 Result Diagram: 05/17/17 1017 05/17/17 1017 Objective Remarks GENERAL: pt laying a bed, awake and tracking people with her eyes, NAD. SKIN: Warm and dry. Lotion noted to have been applied to both feet. HEAD: Normocephalic. EYES: No scleral icterus. No injection or drainage. CARDIOVASCULAR: Regular rate and rhythm without murmurs, gallops, or rubs. RESPIRATORY: Breath sounds equal bilaterally. No accessory muscle use. GASTROINTESTINAL: Abdomen soft, non-tender, nondistended. PEG tube present. MUSCULOSKELETAL: No cyanosis, or edema. NEUROLOGICAL: Right hemiplegia continues. Pt followed several commands today. Procedures Peg Tube placed 05/08/17 (Dr. De Los Santos) Medications and IVs Current Medications Medications (Trade) Dose Ordered Sig/Reymundo Route Start Time Stop Time Status Last Admin (NS Flush) 2 ml UNSCH PRN .XX 04/10/17 22:00 05/01/17 04:49 (NS Flush) 2 ml BID .XX 04/11/17 09:00 05/20/17 08:30 (Tylenol) 650 mg Q6H PRN PO 04/10/17 22:00 04/26/17 13:46 (Morphine Inj) 2 mg Q2H PRN IV 04/10/17 22:00 04/18/17 21:05 (Zofran Inj) 4 mg Q6H PRN IV 04/10/17 22:00 (Reglan Inj) 10 mg Q6H PRN IV 04/10/17 22:00 (Compazine Supp) 25 mg Q12H PRN RECTAL 04/10/17 22:00 Miscellaneous Information 1 Q361D XX 04/10/17 22:00 04/10/17 22:00 (Chlorhexidine 2% Cloth) 3 pack Taper DAILY@04 TOP 04/11/17 04:00 04/07/18 03:59 04/22/17 04:00 (Chlorhexidine 2% Cloth) 3 pack UNSCH PRN TOP 04/10/17 22:00 (Evelyn-Colace) 1 tab BID PO 04/11/17 09:00 05/20/17 08:30 (Milk Of Magnesia Liq) 30 ml Q12H PRN PO 04/10/17 22:00 (Senokot) 17.2 mg Q12H PRN PO 04/10/17 22:00 05/08/17 21:29 (Dulcolax Supp) 10 mg DAILY PRN RECTAL 04/10/17 22:00 (Lactulose Liq) 30 ml DAILY PRN PO 04/10/17 22:00 04/24/17 08:44 (Norvasc) 10 mg DAILY PO 04/14/17 19:45 05/20/17 08:30 (Vasotec Inj) 1.25 mg Q6H PRN IV PUSH 04/15/17 01:15 05/13/17 01:22 (Nitroglycerin 2% Oint) 2 inch Q6HR PRN TOPICAL 04/15/17 06:00 04/16/17 12:34 (Pill Splitter) 1 ea UNSCH PRN OTHER 04/20/17 17:15 (Lopressor) 50 mg BID PO 04/24/17 21:00 05/20/17 08:30 (Catapres) 0.2 mg Q8HR PO 04/26/17 22:00 05/20/17 12:58 (Apresoline) 100 mg Q8HR PO 04/27/17 22:00 05/20/17 12:58 (Prinivil) 40 mg DAILY PO 04/28/17 09:00 05/20/17 08:30 (Lac-Hydrin 12% Lotion) 1 applic BID TOPICAL 05/04/17 14:00 05/20/17 08:30 (Prevacid Odt) 30 mg DAILY G-TUBE 05/10/17 09:00 05/20/17 08:30 (Mycostatin Liq) 5 ml QID SWISH-SWAL 05/14/17 13:00 05/20/17 12:58 (Apresoline) 25 mg Q4HR PRN PEG 05/18/17 14:45 Urinary Catheter: No A/P Assessment and Plan Ms. Miranda is 62 yo female whose identity was unknown until 09/22 was brought to the hospital on 04/10/2017 due to altered mental status, right sided weakness with a left-jacobs gaze. Upon presentation, she was found to have BP around 250/[address] elevation in V1-V3 and T wave inversions in V5, V6. Cardene drip was initiated and a CT head was done with suspicion of ICH. Cardiology attributed EKG changes to probable ICH. CT head indeed confirmed ICH with intraventricular extension. Elevation in blood pressure noted, discussed use of PRN medication with RN and charge nurse. Continue Liquid nystatin through 05/21/17. 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 - No surgical intervention as per Dr. Wang, recommended to keep systolic BP around 120 - 150. BP well controlled. - Neurology following, ok for discharge to rehab. CT head reviewed showing evolving left thalamic hematoma, no new hemorrhage. - H/H stable. Dysphagia - Post PEG placement 05/09/17. In place, clean, dry, intact. TF continued. -Pureed diet with honey thickened liquids initiated on 05/16/17. -SLT continuing to follow/treat. -Pt is reported to be eating small amount of food; remains on tube feeding. UTI with E Coli and Klebsiella, resolved. - Patient asymptomatic, afebrile, vitals stable. Ceftriaxone started 04/22/17 , stopped 04/30/17. Repeat UA negative. Hypertension, chronic: controlled. - Currently on Amlodipine 10mg Qday, Clonidine 0.2mg Q8hrs, Hydralazine 100 mg PO Q8hrs, Metoprolol 50mg BID. - Continue Lisinopril from 20mg Qday to 40 mgQday. - Continue Hydralazine 100mg Q8hrs. - Monitor BP. -BP noted to be elevated on the evening of 05/16/17; Vasotec is available for PRN use for systolic pressure greater than 160 and diastolic greater than 90. -BP control discussed with Rn and Charge nurse. 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 Oral thrush: Start nystatin swish and swallow on tongue. RN to swab tongue with liquid since patient unable to swallow. -Thrush improving. GI Prophylaxis: Pepcid. DVT Prophylaxis: TEDs. Pharmacological DVT prophylaxis held at this time due to pt's thalamic bleed. Will initiate once cleared by neuro. Full code. Discussed with pt, computer repair technician nurse (Colleen) and Dr. Cano. Discharge Planning Discharge planning is in question until pt's identity is determined. Leonid Pederson Jr. May 20, 2017 13:38
[2017-05-20 16:00] VITALS: BP 156/93; PULSE 70; RESP 18; TEMP 98.2; O2SAT 96
[2017-05-20] MEDS: hydrALAZINE HCL 25 MG TAB PEG PRN (16:56)
[2017-05-20 21:30] VITALS: BP 165/80; PULSE 79; RESP 17; TEMP 98.8; O2SAT 95
[2017-05-21 00:20] VITALS: BP 156/76; PULSE 80; RESP 19; TEMP 97.7; O2SAT 94
[2017-05-21] MEDS: CHLORHEXIDINE GLUCONATE 2 % 1 PACK (2 CLOTHS) TOP SCH ×2 (04:00→20:05)
[2017-05-21 05:45] VITALS: BP 140/75; PULSE 71; RESP 18; TEMP 98.8; O2SAT 96
[2017-05-21] MEDS: cloNIDine HCL 0.2 MG TAB PO SCH ×3 (07:15→22:30)
[2017-05-21] MEDS: hydrALAZINE HCL 50 MG TAB PO SCH ×3 (07:15→22:30)
[2017-05-21] MEDS ORDERED: cloNIDine HCL 0.1 MG TAB PO PRN (07:30)
[2017-05-21 08:00] VITALS: BP 149/83; PULSE 74; RESP 16; TEMP 96.4; O2SAT 99
[2017-05-21] MEDS: METOPROLOL TARTRATE 50 MG TAB PO SCH ×2 (09:32→22:30)
[2017-05-21] MEDS: LANSOPRAZOLE SOLUTAB 30 MG TAB G-TUBE SCH (09:33)
[2017-05-21] MEDS: LISINOPRIL 20 MG TAB PO SCH (09:33)
[2017-05-21] MEDS: LACTIC ACID (AMMONIUM LACTATE) 12% LOTION 225 GM BTL TOPICAL SCH ×2 (09:33→21:00)
[2017-05-21] MEDS: SODIUM CHLORIDE 0.9% FLUSH 10 ML FLUSH SCH ×2 (09:33→22:25)
[2017-05-21] MEDS: DOCUSATE SODIUM 50 MG/SENNA 8.6 MG TAB PO SCH ×2 (09:33→22:30)
[2017-05-21] MEDS: NYSTATIN SUSP 500,000 U/5 ML CUP SWISH-SWAL SCH ×4 (09:33→22:30)
[2017-05-21 12:00] VITALS: BP 153/94; PULSE 69; RESP 18; TEMP 98.2; O2SAT 98
--- NOTE | 2017-05-21 12:11 | HHI.PR ---
Subjective Remarks Follow up intracranial hemorrhage. Patient seen and examined today. Lying in bed awake tracks with her eyes to voice. Pt observed with left hand grasp and moving left upper extremity spontaneously. She denied pain, discomfort, nausea/vomiting. malaise. Per RN,(Helena) no acute events overnight or since start of shift. Objective Vitals Vital Signs Date Time Temp Pulse Resp B/P Pulse Ox O2 Delivery O2 Flow Rate FiO2 05/21/17 08:00 96.4 74 16 149/83 99 05/21/17 05:45 98.8 71 18 140/75 96 05/21/17 00:20 97.7 80 19 156/76 94 05/20/17 21:30 98.8 79 17 165/80 95 05/20/17 16:00 98.2 70 18 156/93 96 I/O 05/20/17 05/20/17 05/20/17 05/21/17 05/21/17 05/21/17 06:59 14:59 22:59 06:59 14:59 22:59 Intake Total 770 ml 700 ml 120 ml 0 ml Balance 770 ml 700 ml 120 ml 0 ml Intake Oral 120 ml 0 ml 0 ml Tube Feeding 770 ml 480 ml 120 ml Tube Irrigant 100 ml # Voids 1 3 3 4 # Bowel Movements 0 1 1 0 Result Diagram: 05/17/17 1017 05/17/17 1017 Objective Remarks GENERAL: pt laying a bed, awake and tracking people with her eyes, NAD. Seemed less active than in previous days. SKIN: Warm and dry. Lotion noted to have been applied to both feet. HEAD: Normocephalic. EYES: No scleral icterus. No injection or drainage. CARDIOVASCULAR: Regular rate and rhythm without murmurs, gallops, or rubs. RESPIRATORY: Breath sounds equal bilaterally. No accessory muscle use. GASTROINTESTINAL: Abdomen soft, non-tender, nondistended. PEG tube present. MUSCULOSKELETAL: No cyanosis, or edema. NEUROLOGICAL: Right hemiplegia continues. Pt followed limited commands today. Procedures Peg Tube placed 05/08/17 (Dr. De Los Santos) A/P Assessment and Plan Ms. Miranda is 62 yo female whose identity was unknown until 09/22 was brought to the hospital on 04/10/2017 due to altered mental status, right sided weakness with a left-jacobs gaze. Upon presentation, she was found to have BP around 250/[address] elevation in V1-V3 and T wave inversions in V5, V6. Cardene drip was initiated and a CT head was done with suspicion of ICH. Cardiology attributed EKG changes to probable ICH. CT head indeed confirmed ICH with intraventricular extension. Elevation in blood pressure noted, discussed with charge nurse. Discussed with Dr. Cano who advised adding 0.1 Clonidine po for systolic pressure greater than 170. Continue Liquid nystatin through 05/21/17. 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 - No surgical intervention as per Dr. Wang, recommended to keep systolic BP around 120 - 150. BP well controlled. - Neurology following, ok for discharge to rehab. CT head reviewed showing evolving left thalamic hematoma, no new hemorrhage. - H/H stable. Dysphagia - Post PEG placement 05/09/17. In place, clean, dry, intact. TF continued. -Pureed diet with honey thickened liquids initiated on 05/16/17. -SLT continuing to follow/treat. -Pt is reported to be eating small amount of food; remains on tube feeding. UTI with E Coli and Klebsiella, resolved. - Patient asymptomatic, afebrile, vitals stable. Ceftriaxone started 04/22/17 , stopped 04/30/17. Repeat UA negative. Hypertension, chronic: controlled. - Currently on Amlodipine 10mg Qday, Clonidine 0.2mg Q8hrs, Hydralazine 100 mg PO Q8hrs, Metoprolol 50mg BID. - Continue Lisinopril from 20mg Qday to 40 mgQday. - Continue Hydralazine 100mg Q8hrs. - Monitor BP. -BP noted to be elevated on the evening of 05/16/17; Vasotec is available for PRN use for systolic pressure greater than 160 and diastolic greater than 90. -BP control discussed with Rn and Charge nurse. 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 Oral thrush: Start nystatin swish and swallow on tongue. RN to swab tongue with liquid since patient unable to swallow. -Thrush improving. GI Prophylaxis: Pepcid. DVT Prophylaxis: TEDs. Pharmacological DVT prophylaxis held at this time due to pt's thalamic bleed. Will initiate once cleared by neuro. Full code. Discussed with pt, RN, Charge nurse (Colleen) and Dr. Cano. Discharge Planning Discharge planning is in question until pt's identity is determined. Leonid Pederson Jr. GUS May 21, 2017 12:10
[2017-05-21 16:00] VITALS: BP 141/88; PULSE 79; RESP 17; TEMP 98.6; O2SAT 98
[2017-05-21 20:36] VITALS: BP 167/98; PULSE 75; RESP 20; TEMP 98.7; O2SAT 97
[2017-05-22] VITALS: BP_SYST 184; BP_SYST 188; BP_DIAS 108; BP_DIAS 94; PULSE 72; RESP 18; TEMP 98.5; O2SAT 98
[2017-05-22 04:00] VITALS: BP 167/83; PULSE 74; RESP 18; TEMP 97.9; O2SAT 100
[2017-05-22] MEDS: hydrALAZINE HCL 50 MG TAB PO SCH ×3 (05:37→21:21)
[2017-05-22] MEDS: cloNIDine HCL 0.2 MG TAB PO SCH ×3 (05:37→21:22)
[2017-05-22 08:00] VITALS: BP 131/79; PULSE 79; RESP 18; TEMP 98.3; O2SAT 99
[2017-05-22] MEDS: METOPROLOL TARTRATE 50 MG TAB PO SCH ×2 (09:31→21:22)
[2017-05-22] MEDS: DOCUSATE SODIUM 50 MG/SENNA 8.6 MG TAB PO SCH ×2 (09:31→21:22)
[2017-05-22] MEDS: LISINOPRIL 20 MG TAB PO SCH (09:32)
[2017-05-22] MEDS: SODIUM CHLORIDE 0.9% FLUSH 10 ML FLUSH SCH ×2 (09:32→21:00)
[2017-05-22] MEDS: LANSOPRAZOLE SOLUTAB 30 MG TAB G-TUBE SCH (09:32)
[2017-05-22] MEDS: LACTIC ACID (AMMONIUM LACTATE) 12% LOTION 225 GM BTL TOPICAL SCH ×2 (09:33→21:22)
[2017-05-22] MEDS: NYSTATIN SUSP 500,000 U/5 ML CUP SWISH-SWAL SCH (09:36)
--- NOTE | 2017-05-22 11:18 | HHI.PR ---
Subjective Remarks Follow up intracranial hemorrhage. Patient seen and examined today, son at bedside. Patient lying comfortably in bed, in no apparent distress. Patient nodding appropriately, denies pain. Continues to move left upper extremity purposefully, follows commands. Right upper extremity and bilateral lower extremities flaccid. BP elevated overnight, encourage use of PRN BP medications. Afebrile. VSS at this time. Objective Vitals Vital Signs Date Time Temp Pulse Resp B/P Pulse Ox O2 Delivery O2 Flow Rate FiO2 05/22/17 08:00 98.3 79 18 131/79 99 05/22/17 04:00 97.9 74 18 167/83 100 05/22/17 00:00 98.5 72 18 184/108 98 188/94 05/21/17 20:36 98.7 75 20 167/98 97 05/21/17 16:00 98.6 79 17 141/88 98 05/21/17 12:00 98.2 69 18 153/94 98 I/O 05/21/17 05/21/17 05/21/17 05/22/17 05/22/17 05/22/17 06:59 14:59 22:59 06:59 14:59 22:59 Intake Total 0 ml 780 ml Balance 0 ml 780 ml Intake Oral 0 ml Tube Feeding 720 ml Other 60 ml # Voids 4 4 1 3 # Bowel Movements 0 1 Imaging Last Impressions Chest X-Ray 05/04/17 0000 Signed Impressions: Service Date/Time: April 05:29 - CONCLUSION: 1. Dobbhoff catheter tip in the distal stomach. 2. The lungs are clear. Phillip Moss MD Head CT 04/25/17 0000 Signed Impressions: Service Date/Time: Tuesday, April 25, 2017 18:02 - CONCLUSION: 1. Evolving left thalamic hematoma. No new hemorrhage. Adi Quarles MD Abdomen X-Ray 04/12/17 1538 Signed Impressions: Service Date/Time: Wednesday, April 12, 2017 17:29 - CONCLUSION: Nonobstructive bowel gas pattern. Suresh Zapata MD Neck CTA 04/10/17 0000 Signed Impressions: Service Date/Time: Monday, April 10, 2017 22:28 - CONCLUSION: The internal carotid arteries are normal bilaterally. No significant atherosclerotic disease is noted. Eliud Du MD Head CTA 04/10/17 0000 Signed Impressions: Service Date/Time: Monday, April 10, 2017 22:50 - CONCLUSION: Mild dilatation of the basilar tip without discrete aneurysm. Some narrowing of the left middle cerebral branch after the bifurcation. Prominent left thalamic hemorrhage. Eliud Du MD Objective Remarks GENERAL: Well-developed patient. Nonverbal, lying in bed in nad. SKIN: Warm and dry. HEAD: Normocephalic. EYES: No scleral icterus. No injection or drainage. NECK: trachea midline. No JVD. CARDIOVASCULAR: Regular rate and rhythm. 3/6 blowing murmur noted. RESPIRATORY: Breath sounds equal bilaterally. No accessory muscle use. No wheezing noted. GASTROINTESTINAL: Abdomen soft, non-tender, nondistended. PEG Tube to left mid abdomen. Dressing c/d/i. MUSCULOSKELETAL: No cyanosis, or edema. Spontaneous movement to left upper extremity, following command in left upper and lower extremities. Tracking with eyes. Right upper and lower extremities flaccid. Procedures Peg Tube placed 05/08/17 (Dr. De Los Santos) A/P Assessment and Plan Patient is a middle-aged female with unknown identity who was brought to the hospital on 04/10/2017 due to altered mental status, right sided weakness with a left-jacobs gaze. Upon presentation, she was found to have BP around 250/[address] elevation in V1-V3 and T wave inversions in V5 , V6. Cardene drip was initiated and a CT head was done with suspicion of ICH. Cardiology attributed EKG changes to probable ICH. CT head indeed confirmed ICH with intraventricular extension. 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 - No surgical intervention as per Dr. Wang, recommended to keep systolic BP around 120 - 150. BP well controlled. - Neurology following, ok for discharge to rehab. CT head reviewed showing evolving left thalamic hematoma, no new hemorrhage. - H/H stable. Dysphagia suspect secondary to intracranial bleed - Post PEG placement 05/09/17. In place, clean, dry, intact. TF continued. - Pureed diet with honey thickened liquids, SLT continuing to follow/treat. - Continue encouraging PO intake. Report of small percentage of PO intake. Continue TF. Hypertension, chronic: uncontrolled overnight. - Currently on Amlodipine 10mg Qday, Clonidine 0.2mg Q8hrs, Hydralazine 100 mg PO Q8hrs, Metoprolol 50mg BID. - Continue Lisinopril from 20mg Qday to 40 mgQday. - Continue Hydralazine 100mg Q8hrs. - BP elevated overnight. Clonidine 0.1 mg PO PRN for increased BP systolic > 170. Vasotec IV also available. Monitor BP. 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 Oral thrush, resolved: Nystatin swish and swallow dc'd. UTI with E Coli and Klebsiella, resolved. - Patient asymptomatic, afebrile, vitals stable. Ceftriaxone started 04/22/17 , stopped 04/30/17. Repeat UA negative. GI Prophylaxis: Pepcid. DVT Prophylaxis: TEDs. Pharmacological DVT prophylaxis held at this time due to pt's thalamic bleed. Will initiate once cleared by neuro. Full code. Discharge Planning Last CM note: 05/19/17 CM s/w pts daughter Aleena Wallace [phone]. who was working on getting pt Medicaid. CM s/w Miguelangel from [facility] and provided daughters telephone number. He will be contacting pt's daughter to assist in applying for Medicaid. Veena Calvillo May 22, 2017 11:18
[2017-05-22 12:00] VITALS: BP 142/84; PULSE 68; RESP 18; TEMP 97.4; O2SAT 99
[2017-05-22 20:00] VITALS: BP 162/96; PULSE 89; RESP 20; TEMP 98.6; O2SAT 98
[2017-05-22] MEDS: CHLORHEXIDINE GLUCONATE 2 % 1 PACK (2 CLOTHS) TOP SCH (23:33)
[2017-05-23] VITALS: BP 133/72; PULSE 66; RESP 20; TEMP 98.2; O2SAT 98
[2017-05-23 04:00] VITALS: BP 137/81; PULSE 67; RESP 20; TEMP 98.4; O2SAT 98
[2017-05-23] MEDS: hydrALAZINE HCL 50 MG TAB PO SCH ×3 (05:11→22:41)
[2017-05-23] MEDS: cloNIDine HCL 0.2 MG TAB PO SCH ×3 (05:11→22:41)
[2017-05-23 08:02] VITALS: BP 144/83; PULSE 84; RESP 20; TEMP 99; O2SAT 98
[2017-05-23] MEDS: METOPROLOL TARTRATE 50 MG TAB PO SCH ×2 (08:27→20:24)
[2017-05-23] MEDS: DOCUSATE SODIUM 50 MG/SENNA 8.6 MG TAB PO SCH ×2 (08:27→20:24)
[2017-05-23] MEDS: LANSOPRAZOLE SOLUTAB 30 MG TAB G-TUBE SCH (08:27)
[2017-05-23] MEDS: LACTIC ACID (AMMONIUM LACTATE) 12% LOTION 225 GM BTL TOPICAL SCH ×2 (08:28→20:25)
[2017-05-23] MEDS: SODIUM CHLORIDE 0.9% FLUSH 10 ML FLUSH SCH ×2 (08:28→20:24)
[2017-05-23] MEDS: LISINOPRIL 20 MG TAB PO SCH (08:28)
--- NOTE | 2017-05-23 10:02 | HHI.PR ---
Subjective Remarks Follow up intracranial hemorrhage. Patient seen and examined today, RN at bedside. Patient seen and examined. No new acute events overnight. Patient awake and alert, tracks with eyes. Able to stick out tongue to command, left upper extremity spontaneous movement noted, squeezes to command. Afebrile. VSS. BP more controlled. Objective Vitals Vital Signs Date Time Temp Pulse Resp B/P Pulse Ox O2 Delivery O2 Flow Rate FiO2 05/23/17 08:02 99.0 84 20 144/83 98 05/23/17 04:00 98.4 67 20 137/81 98 05/23/17 00:00 98.2 66 20 133/72 98 05/22/17 20:00 98.6 89 20 162/96 98 05/22/17 12:00 97.4 68 18 142/84 99 I/O 05/22/17 05/22/17 05/22/17 05/23/17 05/23/17 05/23/17 07:00 15:00 23:00 07:00 15:00 23:00 Intake Total 780 ml 1360 ml 890 ml 529 ml Output Total 0 ml Balance 780 ml 1360 ml 890 ml 529 ml Tube Feeding 720 ml 690 ml 429 ml TPN/PPN 960 ml Other 60 ml 400 ml 200 ml 100 ml Tube Feeding Residual Discard 0 ml # Voids 3 1 # Bowel Movements 0 Imaging Last Impressions Chest X-Ray 05/04/17 0000 Signed Impressions: Service Date/Time: April 05:29 - CONCLUSION: 1. Dobbhoff catheter tip in the distal stomach. 2. The lungs are clear. Phillip Moss MD Head CT 04/25/17 0000 Signed Impressions: Service Date/Time: Tuesday, April 25, 2017 18:02 - CONCLUSION: 1. Evolving left thalamic hematoma. No new hemorrhage. Adi Quarles MD Abdomen X-Ray 04/12/17 1538 Signed Impressions: Service Date/Time: Wednesday, April 12, 2017 17:29 - CONCLUSION: Nonobstructive bowel gas pattern. Suresh Zapata MD Neck CTA 04/10/17 0000 Signed Impressions: Service Date/Time: Monday, April 10, 2017 22:28 - CONCLUSION: The internal carotid arteries are normal bilaterally. No significant atherosclerotic disease is noted. Eliud Du MD Head CTA 04/10/17 0000 Signed Impressions: Service Date/Time: Monday, April 10, 2017 22:50 - CONCLUSION: Mild dilatation of the basilar tip without discrete aneurysm. Some narrowing of the left middle cerebral branch after the bifurcation. Prominent left thalamic hemorrhage. Eliud Du MD Objective Remarks GENERAL: Well-developed patient. Nonverbal, lying in bed in nad. SKIN: Warm and dry. HEAD: Normocephalic. Oral mucosa moist, thrush noted. EYES: No scleral icterus. No injection or drainage. NECK: trachea midline. No JVD. CARDIOVASCULAR: Regular rate and rhythm. 3/6 blowing murmur noted. RESPIRATORY: Breath sounds equal bilaterally. No accessory muscle use. No wheezing noted. GASTROINTESTINAL: Abdomen soft, non-tender, nondistended. PEG Tube to left mid abdomen. Dressing c/d/i. MUSCULOSKELETAL: No cyanosis, or edema. Spontaneous movement to left upper extremity, following command in left upper and lower extremities. Tracking with eyes. Right upper and lower extremities flaccid. Procedures Peg Tube placed 05/08/17 (Dr. De Los Santos) A/P Assessment and Plan Patient is a middle-aged female with unknown identity who was brought to the hospital on 04/10/2017 due to altered mental status, right sided weakness with a left-jacobs gaze. Upon presentation, she was found to have BP around 250/[address] elevation in V1-V3 and T wave inversions in V5 , V6. Cardene drip was initiated and a CT head was done with suspicion of ICH. Cardiology attributed EKG changes to probable ICH. CT head indeed confirmed ICH with intraventricular extension. 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 - No surgical intervention as per Dr. Wang, recommended to keep systolic BP around 120 - 150. BP well controlled. - Neurology following, ok for discharge to rehab. CT head reviewed showing evolving left thalamic hematoma, no new hemorrhage. - H/H stable. Dysphagia suspect secondary to intracranial bleed - Post PEG placement 05/09/17. In place, clean, dry, intact. TF continued. - Pureed diet with honey thickened liquids, SLT continuing to follow/treat. - Continue encouraging PO intake. Report of small percentage of PO intake. Continue TF. Hypertension, chronic: uncontrolled overnight. - Currently on Amlodipine 10mg Qday, Clonidine 0.2mg Q8hrs, Hydralazine 100 mg PO Q8hrs, Metoprolol 50mg BID. - Continue Lisinopril from 20mg Qday to 40 mgQday. - Continue Hydralazine 100mg Q8hrs. - Continue Clonidine 0.1 mg PO PRN for increased BP systolic > 170. Vasotec IV also available. Monitor BP. 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 Oral thrush continued: Restart Nystatin swish and swallow. UTI with E Coli and Klebsiella, resolved. - Patient asymptomatic, afebrile, vitals stable. Ceftriaxone started 04/22/17 , stopped 04/30/17. Repeat UA negative. GI Prophylaxis: Pepcid. DVT Prophylaxis: TEDs. Pharmacological DVT prophylaxis held at this time due to pt's thalamic bleed. Will initiate once cleared by neuro. Full code. Discharge Planning Last CM note: 05/22/17 2:50pm: [facility] attempting to reach family to assist with Medicaid application Veena Calvillo May 23, 2017 10:01
[2017-05-23 12:08] VITALS: BP 141/79; PULSE 66; RESP 20; TEMP 97.7; O2SAT 98
[2017-05-23] MEDS: NYSTATIN SUSP 500,000 U/5 ML CUP SWISH-SWAL SCH ×3 (12:41→20:23)
[2017-05-23 16:40] VITALS: BP 147/73; PULSE 76; RESP 20; TEMP 98.7; O2SAT 96
[2017-05-23 20:42] VITALS: BP_SYST 139; BP_SYST 144; BP_DIAS 62; BP_DIAS 94; PULSE 80; RESP 18; TEMP 99.4; O2SAT 92
[2017-05-24] VITALS: BP 111/60; PULSE 78; RESP 16; TEMP 97.8; O2SAT 96
[2017-05-24] MEDS: CHLORHEXIDINE GLUCONATE 2 % 1 PACK (2 CLOTHS) TOP SCH (03:28)
[2017-05-24 04:00] VITALS: BP 148/84; PULSE 86; RESP 18; TEMP 98.3; O2SAT 93
[2017-05-24] MEDS: hydrALAZINE HCL 50 MG TAB PO SCH ×3 (05:55→21:55)
[2017-05-24] MEDS: cloNIDine HCL 0.2 MG TAB PO SCH ×3 (05:55→21:55)
[2017-05-24 08:13] VITALS: BP 123/69; PULSE 91; RESP 19; TEMP 98.9; O2SAT 97
[2017-05-24] MEDS: LACTIC ACID (AMMONIUM LACTATE) 12% LOTION 225 GM BTL TOPICAL SCH ×2 (09:52→21:56)
[2017-05-24] MEDS: LISINOPRIL 20 MG TAB PO SCH (09:52)
[2017-05-24] MEDS: METOPROLOL TARTRATE 50 MG TAB PO SCH ×2 (09:52→21:55)
[2017-05-24] MEDS: LANSOPRAZOLE SOLUTAB 30 MG TAB G-TUBE SCH (09:52)
[2017-05-24] MEDS: NYSTATIN SUSP 500,000 U/5 ML CUP SWISH-SWAL SCH ×4 (09:52→21:55)
[2017-05-24] MEDS: SODIUM CHLORIDE 0.9% FLUSH 10 ML FLUSH SCH ×2 (09:52→21:56)
[2017-05-24] MEDS: DOCUSATE SODIUM 50 MG/SENNA 8.6 MG TAB PO SCH ×2 (09:52→21:55)
--- NOTE | 2017-05-24 11:31 | HHI.PR ---
Subjective Remarks Follow up intracranial hemorrhage. Patient seen and examined today, RN at bedside. Patient lying in bed awake and comfortable. Tracking with eyes and following commands to left upper extremity. Did occasionally wiggle toes on left lower extremity this am. Tolerating TF and supplemental pureed diet. Afebrile. VSS. Objective Vitals Vital Signs Date Time Temp Pulse Resp B/P Pulse Ox O2 Delivery O2 Flow Rate FiO2 05/24/17 08:13 98.9 91 19 123/69 97 05/24/17 04:00 98.3 86 18 148/84 93 05/24/17 00:00 97.8 78 16 111/60 96 05/23/17 20:42 99.4 80 18 144/94 92 05/23/17 16:40 98.7 76 20 147/73 96 05/23/17 12:08 97.7 66 20 141/79 98 I/O 05/23/17 05/23/17 05/23/17 05/24/17 05/24/17 05/24/17 07:00 15:00 23:00 07:00 15:00 23:00 Intake Total 529 ml 400 ml 791 ml 120 ml Balance 529 ml 400 ml 791 ml 120 ml Intake Oral 120 ml 120 ml Tube Feeding 429 ml TPN/PPN 671 ml Other 100 ml 400 ml # Voids 3 # Bowel Movements 1 Imaging Last Impressions Chest X-Ray 05/04/17 0000 Signed Impressions: Service Date/Time: April 05:29 - CONCLUSION: 1. Dobbhoff catheter tip in the distal stomach. 2. The lungs are clear. Phillip Moss MD Head CT 04/25/17 0000 Signed Impressions: Service Date/Time: Tuesday, April 25, 2017 18:02 - CONCLUSION: 1. Evolving left thalamic hematoma. No new hemorrhage. Adi Quarles MD Abdomen X-Ray 04/12/17 1538 Signed Impressions: Service Date/Time: Wednesday, April 12, 2017 17:29 - CONCLUSION: Nonobstructive bowel gas pattern. Suresh Zapata MD Neck CTA 04/10/17 0000 Signed Impressions: Service Date/Time: Monday, April 10, 2017 22:28 - CONCLUSION: The internal carotid arteries are normal bilaterally. No significant atherosclerotic disease is noted. Eliud Du MD Head CTA 04/10/17 0000 Signed Impressions: Service Date/Time: Monday, April 10, 2017 22:50 - CONCLUSION: Mild dilatation of the basilar tip without discrete aneurysm. Some narrowing of the left middle cerebral branch after the bifurcation. Prominent left thalamic hemorrhage. Eliud Du MD Objective Remarks GENERAL: Well-developed patient. Nonverbal, lying in bed comfortably. SKIN: Warm and dry. HEAD: Normocephalic. Oral mucosa moist, thrush noted. EYES: No scleral icterus. No injection or drainage. NECK: trachea midline. No JVD. CARDIOVASCULAR: Regular rate and rhythm. 3/6 blowing murmur noted. RESPIRATORY: Breath sounds equal bilaterally. No accessory muscle use. No wheezing noted. GASTROINTESTINAL: Abdomen soft, non-tender, nondistended. PEG Tube to left mid abdomen. Dressing c/d/i. MUSCULOSKELETAL: No cyanosis, or edema. Spontaneous movement to left upper extremity, following command in left upper and lower extremities. Tracking with eyes. Right upper and lower extremities flaccid. Procedures Peg Tube placed 05/08/17 (Dr. De Los Santos) A/P Assessment and Plan Patient is a middle-aged female with unknown identity who was brought to the hospital on 04/10/2017 due to altered mental status, right sided weakness with a left-jacobs gaze. Upon presentation, she was found to have BP around 250/[address] elevation in V1-V3 and T wave inversions in V5 , V6. Cardene drip was initiated and a CT head was done with suspicion of ICH. Cardiology attributed EKG changes to probable ICH. CT head indeed confirmed ICH with intraventricular extension. 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 - No surgical intervention as per Dr. Wang, recommended to keep systolic BP around 120 - 150. BP well controlled. - Neurology following, ok for discharge to rehab. CT head reviewed showing evolving left thalamic hematoma, no new hemorrhage. - H/H stable. Dysphagia suspect secondary to intracranial bleed - Post PEG placement 05/09/17. In place, clean, dry, intact. TF continued. - Pureed diet with honey thickened liquids, SLT continuing to follow/treat. - Continue encouraging PO intake. Report of small percentage of PO intake. Continue TF. Hypertension, chronic: controlled - Currently on Amlodipine 10mg Qday, Clonidine 0.2mg Q8hrs, Hydralazine 100 mg PO Q8hrs, Metoprolol 50mg BID. - Continue Lisinopril from 20mg Qday to 40 mgQday. - Continue Hydralazine 100mg Q8hrs. - Continue Clonidine 0.1 mg PO PRN for increased BP systolic > 170. Vasotec IV also available. Monitor BP. 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 Oral thrush continued: Nystatin swish and swallow. UTI with E Coli and Klebsiella, resolved. - Patient asymptomatic, afebrile, vitals stable. Ceftriaxone started 04/22/17 , stopped 04/30/17. Repeat UA negative. GI Prophylaxis: Pepcid. DVT Prophylaxis: TEDs. Pharmacological DVT prophylaxis held at this time due to pt's thalamic bleed. Will initiate once cleared by neuro. Full code. Discharge Planning Last CM note: 05/22/17 2:50pm: [facility] attempting to reach family to assist with Medicaid application Veena Calvillo May 24, 2017 11:31
[2017-05-24 12:46] VITALS: BP 132/80; PULSE 74; RESP 18; TEMP 98.7; O2SAT 98
[2017-05-24 20:53] VITALS: BP 133/79; PULSE 92; RESP 18; TEMP 99.4; O2SAT 97
[2017-05-24 23:56] VITALS: BP 119/66; PULSE 71; RESP 16; TEMP 99; O2SAT 96
[2017-05-25 04:00] VITALS: BP 136/75; PULSE 75; RESP 18; TEMP 98.8; O2SAT 97
[2017-05-25] MEDS: CHLORHEXIDINE GLUCONATE 2 % 1 PACK (2 CLOTHS) TOP SCH ×2 (04:00→21:10)
[2017-05-25] MEDS: cloNIDine HCL 0.2 MG TAB PO SCH ×3 (05:08→21:09)
[2017-05-25] MEDS: hydrALAZINE HCL 50 MG TAB PO SCH ×3 (05:30→21:09)
[2017-05-25 07:49] VITALS: BP 131/70; PULSE 84; RESP 18; TEMP 98.9; O2SAT 96
[2017-05-25] MEDS: LANSOPRAZOLE SOLUTAB 30 MG TAB G-TUBE SCH (08:01)
[2017-05-25] MEDS: METOPROLOL TARTRATE 50 MG TAB PO SCH ×2 (08:01→21:09)
[2017-05-25] MEDS: LISINOPRIL 20 MG TAB PO SCH (08:01)
[2017-05-25] MEDS: NYSTATIN SUSP 500,000 U/5 ML CUP SWISH-SWAL SCH ×4 (08:01→21:09)
[2017-05-25] MEDS: DOCUSATE SODIUM 50 MG/SENNA 8.6 MG TAB PO SCH ×2 (08:01→21:09)
[2017-05-25] MEDS: LACTIC ACID (AMMONIUM LACTATE) 12% LOTION 225 GM BTL TOPICAL SCH ×2 (08:02→21:10)
[2017-05-25] MEDS: SODIUM CHLORIDE 0.9% FLUSH 10 ML FLUSH SCH ×2 (08:02→21:08)
--- NOTE | 2017-05-25 10:56 | HHI.PR ---
Subjective Remarks Follow up on patient with intracranial hemorrhage. Patient seen and examined today. Patient is awake but is nonverbal. She appears comfortable. Able to follow some commands. Objective Vitals Vital Signs Date Time Temp Pulse Resp B/P Pulse Ox O2 Delivery O2 Flow Rate FiO2 05/25/17 07:49 98.9 84 18 131/70 96 05/25/17 04:00 98.8 75 18 136/75 97 05/24/17 23:56 99.0 71 16 119/66 96 05/24/17 20:53 99.4 92 18 133/79 97 05/24/17 12:46 98.7 74 18 132/80 98 I/O 05/24/17 05/24/17 05/24/17 05/25/17 05/25/17 05/25/17 07:00 15:00 23:00 07:00 15:00 23:00 Intake Total 120 ml Balance 120 ml Intake Oral 120 ml # Voids 3 5 # Bowel Movements 1 0 Imaging Last Impressions Chest X-Ray 05/04/17 0000 Signed Impressions: Service Date/Time: April 05:29 - CONCLUSION: 1. Dobbhoff catheter tip in the distal stomach. 2. The lungs are clear. Phillip Moss MD Head CT 04/25/17 0000 Signed Impressions: Service Date/Time: Tuesday, April 25, 2017 18:02 - CONCLUSION: 1. Evolving left thalamic hematoma. No new hemorrhage. Adi Quarles MD Abdomen X-Ray 04/12/17 1538 Signed Impressions: Service Date/Time: Wednesday, April 12, 2017 17:29 - CONCLUSION: Nonobstructive bowel gas pattern. Suresh Zapata MD Neck CTA 04/10/17 0000 Signed Impressions: Service Date/Time: Monday, April 10, 2017 22:28 - CONCLUSION: The internal carotid arteries are normal bilaterally. No significant atherosclerotic disease is noted. Eliud Du MD Head CTA 04/10/17 0000 Signed Impressions: Service Date/Time: Monday, April 10, 2017 22:50 - CONCLUSION: Mild dilatation of the basilar tip without discrete aneurysm. Some narrowing of the left middle cerebral branch after the bifurcation. Prominent left thalamic hemorrhage. Eliud Du MD Objective Remarks GENERAL: Well-nourished, well-developed patient in NAD. Lying in hospital bed. Awake. Nonverbal. Follows some commands. SKIN: Warm and dry. No rash. HEAD: Normocephalic. Atraumatic. EYES: No scleral icterus. No injection or drainage. ENT: No nasal bleeding or discharge. Mucous membranes pink and moist. NECK: Supple. Trachea midline. CARDIOVASCULAR: Regular rate and rhythm. 3/6 blowing murmur appreciated. RESPIRATORY: No accessory muscle use. Clear to auscultation. Breath sounds equal bilaterally. GASTROINTESTINAL: Abdomen soft, non-tender, nondistended. Normoactive bowel sounds x4. s/p PEG tube placement. MUSCULOSKELETAL: RUE and RLE flaccid. Spontaneous movement noted in LUE. NEUROLOGICAL: Awake. Nonberbal. Procedures Peg Tube placed 05/08/17 (Dr. De Los Santos) Medications and IVs Current Medications Medications (Trade) Dose Ordered Sig/Reymundo Route Start Time Stop Time Status Last Admin (NS Flush) 2 ml UNSCH PRN .XX 04/10/17 22:00 05/01/17 04:49 (NS Flush) 2 ml BID .XX 04/11/17 09:00 05/25/17 08:02 (Tylenol) 650 mg Q6H PRN PO 04/10/17 22:00 04/26/17 13:46 (Morphine Inj) 2 mg Q2H PRN IV 04/10/17 22:00 04/18/17 21:05 (Zofran Inj) 4 mg Q6H PRN IV 04/10/17 22:00 (Reglan Inj) 10 mg Q6H PRN IV 04/10/17 22:00 (Compazine Supp) 25 mg Q12H PRN RECTAL 04/10/17 22:00 Miscellaneous Information 1 Q361D XX 04/10/17 22:00 04/10/17 22:00 (Chlorhexidine 2% Cloth) Taper DAILY@04 TOP 04/11/17 04:00 04/07/18 03:59 05/21/17 04:00 (Chlorhexidine 2% Cloth) 3 pack UNSCH PRN TOP 04/10/17 22:00 (Evelyn-Colace) 1 tab BID PO 04/11/17 09:00 05/25/17 08:01 (Milk Of Magnesia Liq) 30 ml Q12H PRN PO 04/10/17 22:00 (Senokot) 17.2 mg Q12H PRN PO 04/10/17 22:00 05/08/17 21:29 (Dulcolax Supp) 10 mg DAILY PRN RECTAL 04/10/17 22:00 (Lactulose Liq) 30 ml DAILY PRN PO 04/10/17 22:00 04/24/17 08:44 (Norvasc) 10 mg DAILY PO 04/14/17 19:45 05/25/17 08:01 (Vasotec Inj) 1.25 mg Q6H PRN IV PUSH 04/15/17 01:15 05/13/17 01:22 (Nitroglycerin 2% Oint) 2 inch Q6HR PRN TOPICAL 04/15/17 06:00 04/16/17 12:34 (Pill Splitter) 1 ea UNSCH PRN OTHER 04/20/17 17:15 (Lopressor) 50 mg BID PO 04/24/17 21:00 05/25/17 08:01 (Catapres) 0.2 mg Q8HR PO 04/26/17 22:00 05/25/17 05:08 (Apresoline) 100 mg Q8HR PO 04/27/17 22:00 05/25/17 05:30 (Prinivil) 40 mg DAILY PO 04/28/17 09:00 05/25/17 08:01 (Lac-Hydrin 12% Lotion) 1 applic BID TOPICAL 05/04/17 14:00 05/25/17 08:02 (Prevacid Odt) 30 mg DAILY G-TUBE 05/10/17 09:00 05/25/17 08:01 (Apresoline) 25 mg Q4HR PRN PEG 05/18/17 14:45 05/20/17 16:56 (Catapres) 0.1 mg Q6H PRN PO 05/21/17 07:30 05/22/17 02:48 (Mycostatin Liq) 5 ml QID SWISH-SWAL 05/23/17 13:00 05/25/17 08:01 A/P Assessment and Plan Patient is a middle-aged female with unknown identity who was brought to the hospital on 04/10/2017 due to altered mental status, right sided weakness with a left-jacobs gaze. Upon presentation, she was found to have BP around 250/[address] elevation in V1-V3 and T wave inversions in V5 , V6. Cardene drip was initiated and a CT head was done with suspicion of ICH. Cardiology attributed EKG changes to probable ICH. CT head indeed confirmed ICH with intraventricular extension. 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 - No surgical intervention as per Dr. Wang, recommended to keep systolic BP around 120 - 150. BP 131/70 today. - Neurology cleared patient for discharge to rehab. CT head reviewed showing evolving left thalamic hematoma, no new hemorrhage. - H/H stable. Dysphagia suspect secondary to intracranial bleed - Post PEG placement 05/09/17. PEF site C/D/I. - Continue TF. - Pureed diet with honey thickened liquids, ST continuing to follow/treat. - Continue encouraging PO intake. Patient would not open her mouth for breakfast this morning. Hypertension, chronic: controlled - Currently on Amlodipine 10mg Qday, Clonidine 0.2mg Q8hrs, Hydralazine 100 mg PO Q8hrs, Metoprolol 50mg BID. - Continue Lisinopril from 20mg Qday to 40 mgQday. - Continue Hydralazine 100mg Q8hrs. - Continue Clonidine 0.1 mg PO PRN for increased BP systolic > 170. Vasotec IV also available. Monitor BP. Xeroderma on bilateral feet: Lac Hydrin 12% Lotion continued. Oral thrush: Continue Nystatin swish and swallow. UTI with E Coli and Klebsiella, resolved. - Patient asymptomatic, afebrile, vitals stable. Ceftriaxone started 04/22/17 , stopped 04/30/17. Repeat UA negative. GI Prophylaxis: Pepcid. DVT Prophylaxis: TEDs. Pharmacological DVT prophylaxis held at this time due to pt's thalamic bleed. Full code. Discussed with patient, nursing staff and Dr. Cano Discharge Planning Last CM note: 05/22/17 2:50pm: [facility] attempting to reach family to assist with Medicaid application Tayla Bustos May 25, 2017 10:56
[2017-05-25 11:59] VITALS: BP 136/85; PULSE 74; RESP 18; TEMP 99.2; O2SAT 98
[2017-05-25 20:00] VITALS: BP 158/98; PULSE 82; RESP 20; TEMP 99.5; O2SAT 98
[2017-05-25] MEDS: MORPHINE SULFATE 4 MG/ML INJ IV PRN (21:09)
[2017-05-26] VITALS: BP 143/94; PULSE 76; RESP 20; TEMP 98.1; O2SAT 98
[2017-05-26] MEDS: hydrALAZINE HCL 50 MG TAB PO SCH ×3 (05:57→20:33)
[2017-05-26] MEDS: cloNIDine HCL 0.2 MG TAB PO SCH (05:57)
[2017-05-26 05:59] VITALS: BP 138/84
[2017-05-26] MEDS: DOCUSATE SODIUM 50 MG/SENNA 8.6 MG TAB PO SCH ×2 (09:54→20:33)
[2017-05-26] MEDS: METOPROLOL TARTRATE 50 MG TAB PO SCH (09:54)
[2017-05-26] MEDS: SODIUM CHLORIDE 0.9% FLUSH 10 ML FLUSH SCH (09:54)
[2017-05-26] MEDS: LANSOPRAZOLE SOLUTAB 30 MG TAB G-TUBE SCH (09:54)
[2017-05-26] MEDS: LISINOPRIL 20 MG TAB PO SCH (09:55)
[2017-05-26] MEDS: NYSTATIN SUSP 500,000 U/5 ML CUP SWISH-SWAL SCH ×4 (09:55→20:33)
[2017-05-26] MEDS: LACTIC ACID (AMMONIUM LACTATE) 12% LOTION 225 GM BTL TOPICAL SCH ×2 (09:55→20:33)
[2017-05-26 10:20] VITALS: O2SAT 97
--- NOTE | 2017-05-26 10:30 | HHI.PR ---
Subjective Remarks This is a 62-year-old female who originally presented to the hospital on . Patient was found in a park sitting next to a bench with altered mental status. The onset of time was unknown. Patient was brought to the emergency department and patient had right-sided weakness with leftward gaze. Patient with nonverbal however she was following commands. Patient has CT scan done which did show an acute ophthalmic and intraventricular hemorrhage on the left with approximately 7 mm of rightward midline shift. Patient had workup done and was found to have EKG with ST elevations in leads V1 through V3 and depressions and T-wave inversions in V5 and V6. STEMI alert was called at that time. Patient was noted to have blood pressure 250/150s. On-call hot die press feeder was called and indicated that her EKG abnormalities were likely due to intracranial hemorrhage. Patient was originally admitted to critical care team and transferred to the ICU with Cardene drip for blood pressure management. Neurosurgery was consulted and is indicated that no neurosurgical intervention was planned. We will continue blood pressure management to keep blood pressure [id number]. Patient was managed by critical care until 04/14/17 when patient care was transferred to hospitalist service. Neurology was consulted for recommendations who recommended continue blood pressure below 150. Neurology at this time indicates patient may be discharged to rehabilitation facility for continued management and care. Patient is a phasic, speech therapy was following the patient and patient was unable to tolerate nutrition by mouth to sustain herself. Founder President And Ceo was consulted who placed PEG tube on . Patient has been on tube feeding with pured diet since then. She is not taking much by mouth intake. Blood pressure medications have been adjusted during her stay. ict development manager has been trying to arrange discharge since patient does not have any insurance. Family is in the process of trying to obtain Medicaid. Patient with difficult discharge planning is recommended patient be transferred to [facility] for continued management and care. Objective Vitals Vital Signs Date Time Temp Pulse Resp B/P Pulse Ox O2 Delivery O2 Flow Rate FiO2 05/26/17 05:59 138/84 05/26/17 00:00 98.1 76 20 143/94 98 05/25/17 20:00 99.5 82 20 158/98 98 05/25/17 11:59 99.2 74 18 136/85 98 I/O 05/25/17 05/25/17 05/25/17 05/26/1705/26/17 7/21/17 07:00 15:00 23:00 07:00 15:00 23:00 Intake Total 120 ml 729 ml Balance 120 ml 729 ml Intake Oral 120 ml 0 ml Tube Feeding 599 ml Other 130 ml # Voids 5 1 0 # Bowel Movements 0 0 Objective Remarks GENERAL: Well-developed, well-nourished, in no acute distress. Awake, responds minimally with head nods. HEENT: Head is normocephalic without any lesions or masses noted. Facial features are symmetric. Eyes: Conjunctivae were clear. CARDIAC: Regular rhythm, regular rate. S1/S2 are heard. No murmurs gallops or rubs. LUNGS: Clear to auscultation bilaterally. No wheeze, rhonchi or rales. No use of accessory muscles on inspiration or expiration. ABDOMEN: Soft, nontender. Nondistended. Bowel sounds heard in all 4 quadrants. No organomegaly or masses. Negative rebound, negative guarding, PEG tube noted without any signs of infection EXTREMITIES: No edema, pulses are equal bilaterally. No cyanosis or clubbing NEUROLOGY: Patient is moving left upper extremity and able to move left foot. Patient unable to move right upper and lower extremity. Procedures Peg Tube placed 05/08/17 (Dr. De Los Santos) Urinary Catheter: No Vascular Central Line Catheter: No A/P Assessment and Plan Intracranial hemorrhage secondary to uncontrolled hypertension and hypertensive emergency Thalamic ICH with intraventricular extension. No surgical intervention per Dr. Wang, Neurology following, ok for discharge to rehab. Continue PT/OT/ST Dysphagia suspect secondary to intracranial bleed Post PEG placement 05/09/17. Pureed diet with honey thickened liquids, SLT continuing to follow/treat. Continue encouraging PO intake. Speech therapy to continue to follow and advance diet per exam Dietary consulted for possible bolus feeding Hypertension emergency, blood pressure improving Amlodipine 10 mg daily Lisinopril 40 mg daily Apresoline 100 mg every 8 hours Clonidine 0.2 mg every 8 hours, change to Catapres TTS 2 patch weekly Metoprolol 50 mg twice daily, increase to 75 mg twice daily Apresoline, clonidine, Vasotec as needed Hyperglycemia Hemoglobin A1c 6.2 Change to feeding to Glucerna 1.5 Xeroderma on bilateral feet: Lac-Hydrin 12% Lotion continued. Oral thrush continued: Nystatin swish and swallow. GI Prophylaxis: Prevacid via PEG tube DVT Prophylaxis: Sequential compression devices, chemical prophylaxis contraindicated secondary to intracranial hemorrhage Kayden Kelley May 26, 2017 10:30
[2017-05-26] MEDS: cloNIDine HCL 0.2 MG/24 HR PATCH T-DERMAL SCH (12:39)
[2017-05-26 14:15] VITALS: BP 148/100; PULSE 81; RESP 18; O2SAT 98
[2017-05-26 20:00] VITALS: BP 148/90; PULSE 86; RESP 20; TEMP 99.2; O2SAT 97
[2017-05-26] MEDS: METOPROLOL TARTRATE 25 MG TAB PO SCH (20:33)
[2017-05-27 06:12] VITALS: BP 155/95; PULSE 86
[2017-05-27] MEDS: hydrALAZINE HCL 50 MG TAB PO SCH ×3 (06:12→21:59)
[2017-05-27 07:36] LABS: AUTOMATED NEUTROPHIL # 2.7 TH/MM3 (1.8-7.7); BASOPHIL % 0.8 % (0.0-2.0); EOSINOPHIL # 0.1 TH/MM3 (0-0.4); EOSINOPHIL % 2.8 % (0.0-4.0); HEMATOCRIT 38.5 % (35.0-46.0); HEMOGLOBIN 12.7 GM/DL (11.6-15.3); LYMPH % 27.6 % (9.0-44.0); LYMPHOCYTE # 1.3 TH/MM3 (1.0-4.8); MEAN CELL VOLUME 88.3 FL (80.0-100.0); MEAN CORPUSCULAR HEMOGLOBIN 29.2 PG (27.0-34.0); MEAN PLATELET VOLUME 10.2 FL (7.0-11.0); MONO % 14.8 % (0.0-8.0); MONOCYTE # 0.7 TH/MM3 (0-0.9); PLATELET COUNT 213 TH/MM3 (150-450); RED BLOOD COUNT 4.36 MIL/MM3 (4.00-5.30); RED CELL DISTRIBUTION WIDTH 12.9 % (11.6-17.2); WHITE BLOOD COUNT 4.8 TH/MM3 (4.0-11.0)
[2017-05-27 07:48] LABS: CALCIUM 8.4 MG/DL (8.5-10.1)
[2017-05-27 07:49] LABS: BICARBONATE 29.8 MEQ/L (21.0-32.0)
[2017-05-27 07:52] LABS: CREATININE 0.46 MG/DL (0.50-1.00)
[2017-05-27 08:00] VITALS: BP 148/95; PULSE 96; RESP 18; TEMP 100.1; O2SAT 97
--- NOTE | 2017-05-27 10:01 | HHI.PR ---
Subjective Remarks Patient seen and examined today for follow-up on her cranial hemorrhage, hemorrhagic CVA. Patient lying in bed comfortable. Son was at bedside. Patient does nod and shake her head in response to questions. Still a phasic Objective Vitals Vital Signs Date Time Temp Pulse Resp B/P Pulse Ox O2 Delivery O2 Flow Rate FiO2 05/27/17 08:00 100.1 96 18 148/95 97 05/27/17 06:12 86 155/95 05/26/17 20:00 99.2 86 20 148/90 97 05/26/17 14:15 81 18 148/100 98 05/26/17 10:20 97 21 I/O 05/26/17 05/26/17 05/26/17 05/27/17 05/27/17 05/27/17 07:00 15:00 23:00 07:00 15:00 23:00 Intake Total 729 ml 1754 ml 528 ml Output Total 0 ml Balance 729 ml 1754 ml 528 ml Intake Oral 0 ml 0 ml Tube Feeding 599 ml 1354 ml 528 ml Tube Irrigant 400 ml Other 130 ml Stool Total 0 ml # Voids 0 3 2 # Bowel Movements 0 1 Result Diagram: 05/27/17 0706 05/27/17 0706 Objective Remarks GENERAL: Well-developed, well-nourished, in no acute distress. Awake, responds minimally with head nods. HEENT: Head is normocephalic without any lesions or masses noted. Facial features are symmetric. Eyes: Conjunctivae were clear. CARDIAC: Regular rhythm, regular rate. S1/S2 are heard. 2 or 6 ejection, no gallops or rubs. LUNGS: Clear to auscultation bilaterally. No wheeze, rhonchi or rales. No use of accessory muscles on inspiration or expiration. ABDOMEN: Soft, nontender. Nondistended. Bowel sounds heard in all 4 quadrants. No organomegaly or masses. Negative rebound, negative guarding, PEG tube noted without any signs of infection EXTREMITIES: No edema, pulses are equal bilaterally. No cyanosis or clubbing NEUROLOGY: Patient is moving left upper extremity and able to move left foot. Patient unable to move right upper and lower extremity. Procedures Peg Tube placed 05/08/17 (Dr. De Los Santos) Urinary Catheter: No Vascular Central Line Catheter: No A/P Assessment and Plan Intracranial hemorrhage secondary to uncontrolled hypertension and hypertensive emergency Thalamic ICH with intraventricular extension. No surgical intervention per Dr. Wang, Neurology following, ok for discharge to rehab. Continue PT/OT/ST Dysphagia suspect secondary to intracranial bleed Post PEG placement 05/09/17. Pureed diet with honey thickened liquids, speech therapy continuing to follow/ treat. Continue encouraging PO intake. Speech therapy to continue to follow and advance diet per exam Dietary consulted and made recommendations for bolus feeding Hypertension emergency, blood pressure improving Amlodipine 10 mg daily Lisinopril 40 mg daily Apresoline 100 mg every 8 hours Catapres TTS 2 patch weekly Metoprolol 100 mg twice daily Apresoline, clonidine, Vasotec as needed Hyperglycemia Hemoglobin A1c 6.2 Change tube feeding to Glucerna 1.5 Xeroderma on bilateral feet: Lac-Hydrin 12% Lotion continued. Oral thrush continued: Nystatin swish and swallow. GI Prophylaxis: Prevacid via PEG tube DVT Prophylaxis: Sequential compression devices, chemical prophylaxis contraindicated secondary to intracranial hemorrhage Kayden Kelley May 27, 2017 10:01
[2017-05-27] MEDS: NYSTATIN SUSP 500,000 U/5 ML CUP SWISH-SWAL SCH ×4 (10:12→21:59)
[2017-05-27] MEDS: LISINOPRIL 20 MG TAB PO SCH (10:12)
[2017-05-27] MEDS: LANSOPRAZOLE SOLUTAB 30 MG TAB G-TUBE SCH (10:12)
[2017-05-27] MEDS: METOPROLOL TARTRATE 25 MG TAB PO SCH ×2 (10:13→21:59)
[2017-05-27] MEDS: DOCUSATE SODIUM 50 MG/SENNA 8.6 MG TAB PO SCH ×2 (10:16→21:59)
[2017-05-27] MEDS: LACTIC ACID (AMMONIUM LACTATE) 12% LOTION 225 GM BTL TOPICAL SCH ×2 (10:18→22:00)
[2017-05-27 20:00] VITALS: BP 151/99; PULSE 87; RESP 22; TEMP 99; O2SAT 95
[2017-05-28] MEDS: hydrALAZINE HCL 50 MG TAB PO SCH ×3 (06:44→22:34)
[2017-05-28 08:00] VITALS: BP 164/95; PULSE 101; RESP 17; TEMP 99.6; O2SAT 98
[2017-05-28] MEDS: NYSTATIN SUSP 500,000 U/5 ML CUP SWISH-SWAL SCH (09:43)
[2017-05-28] MEDS: LANSOPRAZOLE SOLUTAB 30 MG TAB G-TUBE SCH (09:43)
[2017-05-28] MEDS: DOCUSATE SODIUM 50 MG/SENNA 8.6 MG TAB PO SCH ×2 (09:43→22:34)
[2017-05-28] MEDS: METOPROLOL TARTRATE 25 MG TAB PO SCH (09:43)
[2017-05-28] MEDS: LACTIC ACID (AMMONIUM LACTATE) 12% LOTION 225 GM BTL TOPICAL SCH ×2 (09:44→21:00)
[2017-05-28] MEDS: LISINOPRIL 20 MG TAB PO SCH (09:47)
--- NOTE | 2017-05-28 10:02 | HHI.PR ---
Subjective Remarks Patient seen and examined today for follow-up on cranial hemorrhage, hemorrhagic CVA. Patient with low-grade fever. Nursing staff and son did not indicate any acute abnormalities or overt symptoms. Objective Vitals Vital Signs Date Time Temp Pulse Resp B/P Pulse Ox O2 Delivery O2 Flow Rate FiO2 05/27/17 20:00 99.0 87 22 151/99 95 I/O 05/27/17 05/27/17 05/27/17 05/28/17 05/28/17 05/28/17 06:59 14:59 22:59 06:59 14:59 22:59 Intake Total 528 ml 500 ml 820 ml Balance 528 ml 500 ml 820 ml Intake Oral 0 ml Tube Feeding 528 ml 820 ml Other 500 ml # Voids 2 1 2 2 # Bowel Movements 1 2 1 Result Diagram: 05/27/17 0705/27/17 07 Objective Remarks GENERAL: Well-developed, well-nourished, in no acute distress. Awake, responds minimally with head nods. HEENT: Head is normocephalic without any lesions or masses noted. Facial features are symmetric. Eyes: Conjunctivae were clear. CARDIAC: Regular rhythm, regular rate. S1/S2 are heard. 2 or 6 ejection, no gallops or rubs. LUNGS: Clear to auscultation bilaterally. No wheeze, rhonchi or rales. No use of accessory muscles on inspiration or expiration. ABDOMEN: Soft, nontender. Nondistended. Bowel sounds heard in all 4 quadrants. No organomegaly or masses. Negative rebound, negative guarding, PEG tube noted without any signs of infection EXTREMITIES: No edema, pulses are equal bilaterally. No cyanosis or clubbing NEUROLOGY: Patient is moving left upper extremity and able to move left foot. Patient unable to move right upper and lower extremity. Procedures Peg Tube placed 05/08/17 (Dr. De Los Santos) Urinary Catheter: No Vascular Central Line Catheter: No A/P Assessment and Plan Febrile illness Could be secondary to occult infection or possible neurologic from CVA, hemorrhage Obtain CBC, BMP Obtain chest x-ray Obtain urinalysis Obtain blood culture Intracranial hemorrhage secondary to uncontrolled hypertension and hypertensive emergency Thalamic ICH with intraventricular extension. No surgical intervention per Dr. Wang, Neurology following, ok for discharge to rehab. Continue PT/OT/ST Dysphagia suspect secondary to intracranial bleed Post PEG placement 05/09/17. Pureed diet with honey thickened liquids, speech therapy continuing to follow/ treat. Continue encouraging PO intake. Speech therapy to continue to follow and advance diet per exam Dietary consulted and made recommendations for bolus feeding Hypertension emergency, blood pressure improving Amlodipine 10 mg daily Lisinopril 40 mg daily Apresoline 100 mg every 8 hours Catapres TTS 2 patch weekly Metoprolol 100 mg twice daily Apresoline, clonidine, Vasotec as needed Hyperglycemia Hemoglobin A1c 6.2 Change tube feeding to Glucerna 1.5 Xeroderma on bilateral feet: Lac-Hydrin 12% Lotion continued. Oral thrush continued: Discontinue Nystatin swish and swallow. Start fluconazole 200 mg daily for 7 days GI Prophylaxis: Prevacid via PEG tube DVT Prophylaxis: Sequential compression devices, chemical prophylaxis contraindicated secondary to intracranial hemorrhage Kayden Kelley May 28, 2017 10:02
[2017-05-28 10:20] LABS: AUTOMATED NEUTROPHIL # 3.6 TH/MM3 (1.8-7.7); BASOPHIL % 0.7 % (0.0-2.0); EOSINOPHIL % 0.4 % (0.0-4.0); HEMATOCRIT 41.3 % (35.0-46.0); HEMOGLOBIN 13.8 GM/DL (11.6-15.3); LYMPH % 22.2 % (9.0-44.0); LYMPHOCYTE # 1.2 TH/MM3 (1.0-4.8); MEAN CELL VOLUME 87.3 FL (80.0-100.0); MEAN CORPUSCULAR HEMOGLOBIN 29.1 PG (27.0-34.0); MEAN CORPUSCULAR HGB CONC 33.4 % (32.0-36.0); MEAN PLATELET VOLUME 9.6 FL (7.0-11.0); MONO % 11.4 % (0.0-8.0); MONOCYTE # 0.6 TH/MM3 (0-0.9); NEUT % 65.3 % (16.0-70.0); PLATELET COUNT 231 TH/MM3 (150-450); RED BLOOD COUNT 4.73 MIL/MM3 (4.00-5.30); RED CELL DISTRIBUTION WIDTH 12.9 % (11.6-17.2); WHITE BLOOD COUNT 5.4 TH/MM3 (4.0-11.0)
[2017-05-28 10:34] LABS: BICARBONATE 28.1 MEQ/L (21.0-32.0); CALCIUM 8.5 MG/DL (8.5-10.1)
[2017-05-28 10:37] LABS: CREATININE 0.43 MG/DL (0.50-1.00)
--- NOTE | 2017-05-28 11:19 | RADRPT ---
EXAM DATE/TIME: 05/28/2017 10:36 [facility] COMPARISON: CHEST SINGLE AP, May 04, 2017, 5:29. INDICATIONS : Fever MEDICAL HISTORY : None. SURGICAL HISTORY : None. ENCOUNTER: Subsequent ACUITY: 1 month PAIN SCORE: Non-responsive. LOCATION: Bilateral chest FINDINGS: Mild left lung base atelectasis and/or infiltrate is seen. There is no appreciable pleural effusion f or technique. Heart and mediastinum are unremarkable. CONCLUSION: Mild left lung base atelectasis and/or infiltrate is seen. Kelby Perez MD on May 28, 2017 at 11:17 Board Certified Radiologist. This report was verified electronically.
[2017-05-28] MEDS: FLUCONAZOLE 200 MG TAB PO SCH (12:11)
[2017-05-28 13:39] LABS: BILIRUBIN, URINE NEG (NEG); BLOOD, URINE NEG (NEG); GLUCOSE,URINE NEG (NEG); KETONE, URINE NEG (NEG); NITRITE,URINE NEG (NEG); URINE LEUKOCYTE ESTERASE NEG (NEG)
[2017-05-28 13:44] LABS: URINE COLOR YELLOW (YELLW/STRAW)
[2017-05-28 13:45] LABS: AMORPHOUS SEDIMENT, URINE FEW; RBC, URINE 0-3 /hpf (0-3)
[2017-05-28 13:46] LABS: TRANSITIONAL EPI CELLS, URINE 0-5 /hpf
[2017-05-28 20:00] VITALS: BP 129/95; PULSE 95; RESP 16; TEMP 100.3; O2SAT 98
[2017-05-28] MEDS: METOPROLOL TARTRATE 100 MG TAB PO SCH (22:34)
[2017-05-29] MEDS: hydrALAZINE HCL 50 MG TAB PO SCH ×3 (06:11→22:08)
[2017-05-29] MEDS: LACTIC ACID (AMMONIUM LACTATE) 12% LOTION 225 GM BTL TOPICAL SCH ×2 (09:00→22:08)
--- NOTE | 2017-05-29 09:37 | HHI.PR ---
Subjective Remarks Patient seen and examined today for follow-up on intracranial hemorrhage, hemorrhagic CVA. Patient still with low-grade fever. Patient indicates no new complaints Objective Vitals Vital Signs Date Time Temp Pulse Resp B/P Pulse Ox O2 Delivery O2 Flow Rate FiO2 05/28/17 20:00 100.3 95 16 129/95 98 I/O 05/28/17 05/28/17 05/28/17 05/29/17 05/29/17 05/29/17 07:00 15:00 23:00 07:00 15:00 23:00 Intake Total 540 ml 240 ml Balance 540 ml 240 ml Intake Oral 0 ml Tube Feeding 480 ml 240 ml Tube Irrigant 60 ml # Voids 2 3 1 3 # Bowel Movements 1 1 1 1 Result Diagram: 05/28/17 1013 05/28/17 1013 Objective Remarks GENERAL: Well-developed, well-nourished, in no acute distress. Awake, responds minimally with head nods. HEENT: Head is normocephalic without any lesions or masses noted. Facial features are symmetric. Eyes: Conjunctivae were clear. CARDIAC: Regular rhythm, regular rate. S1/S2 are heard. 2 or 6 ejection, no gallops or rubs. LUNGS: Clear to auscultation bilaterally. No wheeze, rhonchi or rales. No use of accessory muscles on inspiration or expiration. ABDOMEN: Soft, nontender. Nondistended. Bowel sounds heard in all 4 quadrants. No organomegaly or masses. Negative rebound, negative guarding, PEG tube noted without any signs of infection EXTREMITIES: No edema, pulses are equal bilaterally. No cyanosis or clubbing NEUROLOGY: Patient is moving left upper extremity and able to move left foot. Patient unable to move right upper and lower extremity. Procedures Peg Tube placed 05/08/17 (Dr. De Los Santos) Urinary Catheter: No Vascular Central Line Catheter: No A/P Assessment and Plan Febrile illness, low-grade fever Could be secondary to occult infection or possible neurologic from CVA, hemorrhage CBC, BMP were unremarkable chest x-ray indicated atelectasis versus infiltrate urinalysis was normal blood culture pending Start Levaquin 750 mg daily for 7 days Intracranial hemorrhage secondary to uncontrolled hypertension and hypertensive emergency Thalamic ICH with intraventricular extension. No surgical intervention per Dr. Wang, Neurology following, ok for discharge to rehab. Continue PT/OT/ST Dysphagia suspect secondary to intracranial bleed Post PEG placement 05/09/17. Pureed diet with honey thickened liquids, Continue encouraging PO intake. Speech therapy to continue to follow and advance diet per exam Dietary consulted and made recommendations for bolus feeding Hypertension emergency, blood pressure improving Amlodipine 10 mg daily Lisinopril 40 mg daily Apresoline 100 mg every 8 hours Catapres TTS 2 patch weekly Metoprolol 100 mg twice daily Apresoline, clonidine, Vasotec as needed Hyperglycemia Hemoglobin A1c 6.2 Glucerna 1.5 to feeding Xeroderma on bilateral feet: Lac-Hydrin 12% Lotion continued. Oral thrush continued: Continue fluconazole 200 mg daily for 7 days GI Prophylaxis: Prevacid via PEG tube DVT Prophylaxis: Sequential compression devices, chemical prophylaxis contraindicated secondary to intracranial hemorrhage Discharge Planning Discharge planning per case management Kayden Kelley May 29, 2017 09:36
[2017-05-29 09:59] VITALS: BP 132/84; PULSE 95; RESP 16; TEMP 99.9; O2SAT 96
[2017-05-29] MEDS: LANSOPRAZOLE SOLUTAB 30 MG TAB G-TUBE SCH (10:16)
[2017-05-29] MEDS: METOPROLOL TARTRATE 100 MG TAB PO SCH ×2 (10:16→22:08)
[2017-05-29] MEDS: DOCUSATE SODIUM 50 MG/SENNA 8.6 MG TAB PO SCH ×2 (10:16→22:08)
[2017-05-29] MEDS: LISINOPRIL 20 MG TAB PO SCH (10:16)
[2017-05-29] MEDS: FLUCONAZOLE 200 MG TAB PO SCH (10:16)
[2017-05-29] MEDS ORDERED: LEVOFLOXACIN ORAL SOLN 2500 MG/100 ML BOTTLE PEG SCH (11:00)
[2017-05-29] MEDS: LEVOFLOXACIN ORAL SOLN 2500 MG/100 ML BOTTLE PEG SCH (17:22)
[2017-05-29 20:00] VITALS: BP 144/97; PULSE 94; RESP 20; TEMP 89.9; O2SAT 98
[2017-05-30] MEDS: hydrALAZINE HCL 50 MG TAB PO SCH ×3 (05:52→22:09)
[2017-05-30 08:43] VITALS: BP 125/82; PULSE 87; RESP 19; TEMP 97.8; O2SAT 96
[2017-05-30] MEDS: LANSOPRAZOLE SOLUTAB 30 MG TAB G-TUBE SCH (09:27)
[2017-05-30] MEDS: FLUCONAZOLE 200 MG TAB PO SCH (09:27)
[2017-05-30] MEDS: LISINOPRIL 20 MG TAB PO SCH (09:28)
[2017-05-30] MEDS: DOCUSATE SODIUM 50 MG/SENNA 8.6 MG TAB PO SCH ×2 (09:28→20:34)
[2017-05-30] MEDS: METOPROLOL TARTRATE 100 MG TAB PO SCH ×2 (09:28→20:33)
[2017-05-30] MEDS: LACTIC ACID (AMMONIUM LACTATE) 12% LOTION 225 GM BTL TOPICAL SCH ×2 (09:29→20:34)
[2017-05-30 13:30] VITALS: BP 130/90; PULSE 88; RESP 18
[2017-05-30] MEDS: LEVOFLOXACIN ORAL SOLN 2500 MG/100 ML BOTTLE PEG SCH (16:27)
--- NOTE | 2017-05-30 16:34 | HHI.PR ---
Subjective Remarks Follow-up for hemorrhagic CVA , febrile illness. The patient is aphasic. She nods to answer my questions. Denies any headache. Denies any acute issues overnight. Objective Vitals Vital Signs Date Time Temp Pulse Resp B/P Pulse Ox O2 Delivery O2 Flow Rate FiO2 05/30/17 13:30 88 18 130/90 05/30/17 08:43 97.8 87 19 125/82 96 05/29/17 20:00 89.9 94 20 144/97 98 I/O 05/29/17 05/29/17 05/29/17 05/30/17 05/30/17 05/30/17 06:59 14:59 22:59 06:59 14:59 22:59 Intake Total 480 ml 560 ml 340 ml 240 ml Balance 480 ml 560 ml 340 ml 240 ml Intake Oral 0 ml 120 ml Tube Feeding 480 ml 360 ml 240 ml Tube Irrigant 200 ml 220 ml # Voids 3 1 1 2 # Bowel Movements 1 1 1 1 Result Diagram: 05/28/17 1013 05/28/17 1013 Objective Remarks GENERAL: Well-nourished, well-developed patient in no apparent stress. EYES: No scleral icterus. No injection or drainage. CARDIOVASCULAR: Tachycardic rate and regular rhythm. RESPIRATORY: No accessory muscle use. Clear to auscultation. Breath sounds equal bilaterally. GASTROINTESTINAL: Abdomen soft, non-tender, nondistended. NEUROLOGICAL: Awake and alert. Patient has difficulty with EOMs. Flaccid R hand. 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 Patient unable to lift either leg. Aphasic. Procedures Peg Tube placed 05/08/17 (Dr. De Los Santos) Urinary Catheter: No Vascular Central Line Catheter: No A/P Assessment and Plan Febrile illness: Last fever am 05/29, afebrile since. Could be secondary to occult infection or possible neurologic from CVA, hemorrhage 05/28 CBC, BMP were unremarkable Chest x-ray indicated mild L lung atelectasis versus infiltrate Urinalysis was normal Blood culture 05/28 NGTD Continue Levaquin 750 mg daily for total of 7 days Monitor clinically. Intracranial hemorrhage secondary to uncontrolled hypertension and hypertensive emergency Thalamic ICH with intraventricular extension. No surgical intervention per Dr. Wang, Neurology following, ok for discharge to rehab. Continue PT/OT/ST Dysphagia suspect secondary to intracranial bleed Post PEG placement 05/09/17. Pureed diet with honey thickened liquids, tsp by tsp. Continue encouraging PO intake. Speech therapy to continue to follow Dietary consulted and made recommendations as below: Jevity 1.5 boluses of 240mls @ 9AM, 1PM, & 6PM and 120mls @ 9PM. Give boluses after meals to allow pt to eat. Flush 30mls water before and after each bolus feeding. Recommend additional 100ml water flush Q 8hrs. Honey thickened Ensure BID to trays for added hydration. Hypertension emergency: BP improving. Amlodipine 10 mg daily Lisinopril 40 mg daily Apresoline 100 mg every 8 hours Catapres TTS 2 patch weekly Metoprolol 100 mg twice daily Apresoline, clonidine, Vasotec as needed Hyperglycemia Hemoglobin A1c 6.2 Glucerna 1.5 to feeding Xeroderma on bilateral feet: Lac-Hydrin 12% Lotion continued. Oral thrush continued: Continue fluconazole 200 mg daily for 7 days GI Prophylaxis: Prevacid via PEG tube DVT Prophylaxis: SCDs. Chemical prophylaxis contraindicated secondary to intracranial hemorrhage Discharge Planning CM following. Yuly Shafer May 30, 2017 16:34
[2017-05-30 20:00] VITALS: BP 153/97; PULSE 107; RESP 20; TEMP 100.3; O2SAT 98
[2017-05-31] MEDS: hydrALAZINE HCL 50 MG TAB PO SCH ×3 (05:31→21:58)
[2017-05-31 08:00] VITALS: BP 158/108; PULSE 114; RESP 18; TEMP 99.7; O2SAT 97
[2017-05-31] MEDS: LANSOPRAZOLE SOLUTAB 30 MG TAB G-TUBE SCH (09:20)
[2017-05-31] MEDS: LISINOPRIL 20 MG TAB PO SCH (09:20)
[2017-05-31] MEDS: METOPROLOL TARTRATE 100 MG TAB PO SCH ×2 (09:20→20:47)
[2017-05-31] MEDS: FLUCONAZOLE 200 MG TAB PO SCH (09:20)
[2017-05-31] MEDS: LACTIC ACID (AMMONIUM LACTATE) 12% LOTION 225 GM BTL TOPICAL SCH ×2 (09:20→20:47)
[2017-05-31] MEDS: DOCUSATE SODIUM 50 MG/SENNA 8.6 MG TAB PO SCH ×2 (09:20→20:47)
[2017-05-31 09:50] LABS: AUTOMATED NEUTROPHIL # 4.3 TH/MM3 (1.8-7.7); BASOPHIL # 0.2 TH/MM3 (0-0.2); BASOPHIL % 2.9 % (0.0-2.0); EOSINOPHIL % 0.4 % (0.0-4.0); HEMATOCRIT 42.4 % (35.0-46.0); HEMOGLOBIN 13.6 GM/DL (11.6-15.3); LYMPH % 21.8 % (9.0-44.0); LYMPHOCYTE # 1.5 TH/MM3 (1.0-4.8); MEAN CELL VOLUME 88.8 FL (80.0-100.0); MEAN CORPUSCULAR HEMOGLOBIN 28.6 PG (27.0-34.0); MEAN CORPUSCULAR HGB CONC 32.2 % (32.0-36.0); MEAN PLATELET VOLUME 9.7 FL (7.0-11.0); MONOCYTE # 0.7 TH/MM3 (0-0.9); NEUT % 63.9 % (16.0-70.0); PLATELET COUNT 238 TH/MM3 (150-450); RED BLOOD COUNT 4.77 MIL/MM3 (4.00-5.30); RED CELL DISTRIBUTION WIDTH 13.7 % (11.6-17.2); WHITE BLOOD COUNT 6.7 TH/MM3 (4.0-11.0)
--- NOTE | 2017-05-31 09:59 | HHI.PR ---
Subjective Remarks Follow-up for hemorrhagic CVA. The patient is aphasic. She nods to answer my questions. Patient again had a low-grade temperature 100.3 degrees last night, resolved this morning without antipyretic. She denies any ARELLANO, fevers or chills , cough, shortness of breath, abdominal pain, vomiting, diarrhea, dysuria, or increased urinary frequency. Objective Vitals Vital Signs Date Time Temp Pulse Resp B/P Pulse Ox O2 Delivery O2 Flow Rate FiO2 05/30/17 20:00 100.3 107 20 153/97 98 05/30/17 13:30 88 18 130/90 I/O 05/30/17 05/30/17 05/30/17 05/31/17 05/31/17 05/31/17 07:00 15:00 23:00 07:00 15:00 23:00 Intake Total 340 ml 630 ml 340 ml 0 ml 400 ml Balance 340 ml 630 ml 340 ml 0 ml 400 ml Intake Oral 120 ml 0 ml Tube Feeding 480 ml 240 ml 240 ml Tube Irrigant 220 ml 150 ml 100 ml 60 ml Other 100 ml # Voids 2 2 2 # Bowel Movements 1 1 Result Diagram: 05/31/17 0935 05/28/17 1013 Imaging Last Impressions Chest X-Ray 05/31/17 0000 Signed Impressions: Service Date/Time: Wednesday, May 31, 2017 13:13 - CONCLUSION: 1. Improved right lower lung zone aeration with minimal residual airspace disease. Pipe Smart MD Head CT 04/25/17 0000 Signed Impressions: Service Date/Time: Tuesday, April 25, 2017 18:02 - CONCLUSION: 1. Evolving left thalamic hematoma. No new hemorrhage. Adi Quarles MD Abdomen X-Ray 04/12/17 1538 Signed Impressions: Service Date/Time: Wednesday, April 12, 2017 17:29 - CONCLUSION: Nonobstructive bowel gas pattern. Suresh Zapata MD Neck CTA 04/10/17 0000 Signed Impressions: Service Date/Time: Monday, April 10, 2017 22:28 - CONCLUSION: The internal carotid arteries are normal bilaterally. No significant atherosclerotic disease is noted. Eliud Du MD Head CTA 04/10/17 0000 Signed Impressions: Service Date/Time: Monday, April 10, 2017 22:50 - CONCLUSION: Mild dilatation of the basilar tip without discrete aneurysm. Some narrowing of the left middle cerebral branch after the bifurcation. Prominent left thalamic hemorrhage. Eliud Du MD Objective Remarks GENERAL: Well-nourished, well-developed patient in no apparent stress. CARDIOVASCULAR: Tachycardic rate and regular rhythm. 2/6 murmur over aortic region. RESPIRATORY: No accessory muscle use. Clear to auscultation, but breath sounds decreased as patient does not take deep breaths. GASTROINTESTINAL: Abdomen soft, non-tender, nondistended. MUSCULOSKELETAL: No lower extremity edema bilaterally. NEUROLOGICAL: Awake and alert. Flaccid R hand. 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 Patient unable to move her legs. Aphasic. Procedures Peg Tube placed 05/08/17 (Dr. De Los Santos) Urinary Catheter: No Vascular Central Line Catheter: No A/P Assessment and Plan Febrile illness: Last fever am 05/29, 99.9 axillary, afebrile since. Could be secondary to occult infection or possible neurologic from CVA, hemorrhage 05/28 CBC, BMP were unremarkable 05/28 Chest x-ray indicated mild L lung atelectasis versus infiltrate Urinalysis was normal Blood culture 05/28 NGTD Continue Levaquin 750 mg daily for total of 7 days 05/31: Again with low grade temp 100.3 last night. Normal temp this morning. Repeat CBC reviewed and unremarkable. Discussed with Dr. Cheema who advises repeat chest x-ray. Chest x-ray personally interpreted and appears improved from prior; no focal consolidations noted. Low-grade temperatures are likely related to CVA. Monitor clinically. Intracranial hemorrhage secondary to uncontrolled hypertension and hypertensive emergency Thalamic ICH with intraventricular extension. No surgical intervention per Dr. Wang, Neurology following, ok for discharge to rehab. Continue PT/OT/ST Dysphagia suspect secondary to intracranial bleed Post PEG placement 05/09/17. Pureed diet with honey thickened liquids, tsp by tsp. Continue encouraging PO intake. Speech therapy to continue to follow Dietary consulted and made recommendations as below: Jevity 1.5 boluses of 240mls @ 9AM, 1PM, & 6PM and 120mls @ 9PM. Give boluses after meals to allow pt to eat. Flush 30mls water before and after each bolus feeding. Recommend additional 100ml water flush Q 8hrs. Honey thickened Ensure BID to trays for added hydration. Hypertension emergency: BP improving. Amlodipine 10 mg daily Lisinopril 40 mg daily Apresoline 100 mg every 8 hours Catapres TTS 2 patch weekly Metoprolol 100 mg twice daily Apresoline, clonidine, Vasotec as needed Mild hypernatremia and hyperchloremia: New BMP today reviewed with Sodium 146 and Chloride 110. Likely to related to decreased by mouth intake. I did confirm with nurse that patient is receiving appropriate free water flushes as advised by dietitian. I advised nurse to push thickened Ensure as nurse indicates patient is not adequately drinking this. -Repeat am BMP Hyperglycemia Hemoglobin A1c 6.2 Glucerna 1.5 to feeding Xeroderma on bilateral feet: Lac-Hydrin 12% Lotion continued. Oral thrush continued: Continue fluconazole 200 mg daily for 7 days GI Prophylaxis: Prevacid via PEG tube DVT Prophylaxis: SCDs. Chemical prophylaxis contraindicated secondary to intracranial hemorrhage Discharge Planning CM following. Yuly Shafer May 31, 2017 09:59
[2017-05-31 10:03] LABS: BICARBONATE 30.8 MEQ/L (21.0-32.0); CALCIUM 8.5 MG/DL (8.5-10.1)
[2017-05-31 10:07] LABS: CREATININE 0.44 MG/DL (0.50-1.00)
[2017-05-31 13:21] VITALS: BP 131/92; PULSE 81; RESP 18
--- NOTE | 2017-05-31 13:47 | RADRPT ---
EXAM DATE/TIME: 05/31/2017 13:13 [facility] COMPARISON: CHEST SINGLE AP, May 28, 2017, 10:36. INDICATIONS : Fever MEDICAL HISTORY : None. SURGICAL HISTORY : None. ENCOUNTER: Subsequent ACUITY: 1 month PAIN SCORE: Non-responsive. LOCATION: Bilateral chest FINDINGS: Improved aeration of the right lower lung zone. No significant focal pleural or parenchymal opacities . Cardiomediastinal contours are stable. Remainder of the exam is unchanged. CONCLUSION: 1. Improved right lower lung zone aeration with minimal residual airspace disease. Pipe Smart MD on May 31, 2017 at 13:44 Board Certified Radiologist. This report was verified electronically.
[2017-05-31] MEDS: LEVOFLOXACIN ORAL SOLN 2500 MG/100 ML BOTTLE PEG SCH (17:09)
[2017-05-31 20:00] VITALS: BP 127/84; PULSE 90; RESP 20; TEMP 100.2; O2SAT 98
[2017-06-01] MEDS: hydrALAZINE HCL 50 MG TAB PO SCH ×3 (05:42→22:39)
[2017-06-01 07:27] LABS: BICARBONATE 27.9 MEQ/L (21.0-32.0); CALCIUM 8.7 MG/DL (8.5-10.1)
[2017-06-01 07:31] LABS: CREATININE 0.41 MG/DL (0.50-1.00)
[2017-06-01 08:00] VITALS: BP 130/92; PULSE 119; RESP 18; TEMP 100.4; O2SAT 95
[2017-06-01] MEDS: LANSOPRAZOLE SOLUTAB 30 MG TAB G-TUBE SCH (08:51)
[2017-06-01] MEDS: DOCUSATE SODIUM 50 MG/SENNA 8.6 MG TAB PO SCH ×2 (08:51→20:27)
[2017-06-01] MEDS: FLUCONAZOLE 200 MG TAB PO SCH (08:52)
[2017-06-01] MEDS: LISINOPRIL 20 MG TAB PO SCH (08:52)
[2017-06-01] MEDS: METOPROLOL TARTRATE 100 MG TAB PO SCH ×2 (08:52→20:27)
[2017-06-01] MEDS: LACTIC ACID (AMMONIUM LACTATE) 12% LOTION 225 GM BTL TOPICAL SCH ×2 (09:06→20:27)
[2017-06-01] MEDS ORDERED: SODIUM CHLORID 0.9% 500 ML INJ 500 ML IV ONE (11:30)
--- NOTE | 2017-06-01 11:48 | HHI.PR ---
Subjective Remarks Follow-up for hemorrhagic CVA. The patient is aphasic. She nods to answer my questions. Patient's son is at bedside. Patient was again noted to have a low- grade temperature last night and a temp of 99.4 axillary this morning, but she denies any fevers or chills, cough, shortness of breath, abdominal pain, vomiting, or diarrhea. Objective Vitals Vital Signs Date Time Temp Pulse Resp B/P Pulse Ox O2 Delivery O2 Flow Rate FiO2 06/01/17 08:00 100.4 119 18 130/92 95 05/31/17 20:00 100.2 90 20 127/84 98 05/31/17 13:21 81 18 131/92 I/O 05/31/17 05/31/17 05/31/17 06/01/17 06/01/17 06/01/17 07:00 15:00 23:00 07:00 15:00 23:00 Intake Total 0 ml 700 ml 400 ml Balance 0 ml 700 ml 400 ml Intake Oral 0 ml Tube Feeding 480 ml 240 ml Tube Irrigant 120 ml 60 ml Other 100 ml 100 ml # Voids 2 1 2 # Bowel Movements 0 1 Result Diagram: 05/31/17 0935 06/01/17 0640 Objective Remarks GENERAL: Well-nourished, well-developed patient in no apparent stress. EYES: Bilateral conjunctival injection. CARDIOVASCULAR: Tachycardic rate and regular rhythm. RESPIRATORY: No accessory muscle use. Clear to auscultation bilaterally. GASTROINTESTINAL: Abdomen soft, non-tender, nondistended. NEUROLOGICAL: Awake and alert. Flaccid R hand. Aphasic. Procedures Peg Tube placed 05/08/17 (Dr. De Los Santos) Urinary Catheter: No Vascular Central Line Catheter: No A/P Assessment and Plan Febrile illness: Could be secondary to occult infection or possible neurologic from CVA, hemorrhage 05/28 CBC, BMP were unremarkable 05/28 Chest x-ray indicated mild L lung atelectasis versus infiltrate Urinalysis was normal Blood culture 05/28 NGTD Continue Levaquin 750 mg daily for total of 7 days 05/31: Again low grade temps. CBC unremarkable. Chest x-ray appears improved from prior; no focal consolidations noted. 06/01: Again with low grade temp 100.2 last night, and temp of 99.4 axillary this morning. No antipyretic given overnight. Discussed with Dr. Clarke who agrees elevated temps are likely related to CVA as no clear evidence of infection. Monitor clinically. Repeat am CBC with diff. If temps worsen, may need to repeat additional workup. Intracranial hemorrhage secondary to uncontrolled hypertension and hypertensive emergency Thalamic ICH with intraventricular extension. No surgical intervention per Dr. Wang, Neurology following, ok for discharge to rehab. Continue PT/OT/ST Dysphagia suspect secondary to intracranial bleed Post PEG placement 05/09/17. Pureed diet with honey thickened liquids, tsp by tsp. Continue encouraging PO intake. Speech therapy to continue to follow Dietary consulted and made recommendations as below: Jevity 1.5 boluses of 240mls @ 9AM, 1PM, & 6PM and 120mls @ 9PM. Give boluses after meals to allow pt to eat. Flush 30mls water before and after each bolus feeding. Recommend additional 100ml water flush Q 8hrs. Honey thickened Ensure BID to trays for added hydration. Hypertension emergency: BP improving. Amlodipine 10 mg daily Lisinopril 40 mg daily Apresoline 100 mg every 8 hours Catapres TTS 2 patch weekly Metoprolol 100 mg twice daily Apresoline, clonidine, Vasotec as needed Hypernatremia and hyperchloremia: Likely to related to decreased by mouth intake. -I confirmed with nurse that patient is receiving appropriate free water flushes as advised by dietitian. I advised nurse to push thickened Ensure as nurse indicates patient is not adequately drinking this. -06/01: New BMP today reviewed with worsening Sodium 147 and Chloride stable at 110. Discussed with Dr. Clarke who advises 500 mL bolus of NS. -Repeat am BMP Pre-renal azotemia: BUN/Cr 20/0.41. Likely attributed to poor po intake. -Continue free water flushes -IVF bolus as above. -Monitor BMP. Hyperglycemia Hemoglobin A1c 6.2 Glucerna 1.5 to feeding Xeroderma on bilateral feet: Lac-Hydrin 12% Lotion continued. Oral thrush continued: Continue fluconazole 200 mg daily for 7 days GI Prophylaxis: Prevacid via PEG tube DVT Prophylaxis: SCDs. Chemical prophylaxis contraindicated secondary to intracranial hemorrhage Discharge Planning CM following. Yuly Shafer Jun 01, 2017 11:48
[2017-06-01] MEDS: LEVOFLOXACIN ORAL SOLN 2500 MG/100 ML BOTTLE PEG SCH (15:51)
[2017-06-01 20:00] VITALS: BP 121/93; PULSE 91; RESP 20; TEMP 99.3; O2SAT 97
[2017-06-02] MEDS: hydrALAZINE HCL 50 MG TAB PO SCH ×3 (06:06→20:24)
[2017-06-02 06:35] LABS: AUTOMATED NEUTROPHIL # 3.7 TH/MM3 (1.8-7.7); BASOPHIL # 0.1 TH/MM3 (0-0.2); EOSINOPHIL # 0.1 TH/MM3 (0-0.4); EOSINOPHIL % 1.5 % (0.0-4.0); HEMATOCRIT 40.4 % (35.0-46.0); HEMOGLOBIN 13.4 GM/DL (11.6-15.3); MEAN CELL VOLUME 87.6 FL (80.0-100.0); MEAN CORPUSCULAR HEMOGLOBIN 29.2 PG (27.0-34.0); MEAN CORPUSCULAR HGB CONC 33.3 % (32.0-36.0); MEAN PLATELET VOLUME 10.1 FL (7.0-11.0); MONO % 11.2 % (0.0-8.0); MONOCYTE # 0.7 TH/MM3 (0-0.9); NEUT % 55.3 % (16.0-70.0); PLATELET COUNT 258 TH/MM3 (150-450); RED BLOOD COUNT 4.61 MIL/MM3 (4.00-5.30); RED CELL DISTRIBUTION WIDTH 13.2 % (11.6-17.2); WHITE BLOOD COUNT 6.6 TH/MM3 (4.0-11.0)
[2017-06-02 06:36] LABS: BICARBONATE 30.2 MEQ/L (21.0-32.0); CALCIUM 8.5 MG/DL (8.5-10.1)
[2017-06-02 06:39] LABS: CREATININE 0.45 MG/DL (0.50-1.00)
[2017-06-02 08:00] VITALS: BP 152/91; PULSE 95; RESP 18; TEMP 97.8; O2SAT 100
[2017-06-02] MEDS: LISINOPRIL 20 MG TAB PO SCH (09:47)
[2017-06-02] MEDS: METOPROLOL TARTRATE 100 MG TAB PO SCH ×2 (09:47→20:00)
[2017-06-02] MEDS: LANSOPRAZOLE SOLUTAB 30 MG TAB G-TUBE SCH (09:47)
[2017-06-02] MEDS: FLUCONAZOLE 200 MG TAB PO SCH (09:47)
[2017-06-02] MEDS: DOCUSATE SODIUM 50 MG/SENNA 8.6 MG TAB PO SCH ×2 (09:47→20:00)
[2017-06-02] MEDS: LACTIC ACID (AMMONIUM LACTATE) 12% LOTION 225 GM BTL TOPICAL SCH ×2 (09:47→20:00)
[2017-06-02] MEDS: SODIUM CHLOR 0.9% 1000 ML INJ 1,000 ML IV SCH ×2 (11:22→20:01)
[2017-06-02] MEDS: cloNIDine HCL 0.2 MG/24 HR PATCH T-DERMAL SCH (11:27)
--- NOTE | 2017-06-02 11:31 | HHI.PR ---
Subjective Remarks Follow-up for hemorrhagic CVA, low grade temps, dehydration. The patient is aphasic. She nods to answer my questions. Patient denies any headache, lightheadedness, fever or chills, chest pain, shortness of breath, cough, abdominal pain, vomiting, diarrhea, or dysuria. Objective Vitals Vital Signs Date Time Temp Pulse Resp B/P Pulse Ox O2 Delivery O2 Flow Rate FiO2 06/02/17 08:00 97.8 95 18 152/91 100 06/01/17 20:00 99.3 91 20 121/93 97 I/O 06/01/17 06/01/17 06/01/17 06/02/17 06/02/17 06/02/17 06:59 14:59 22:59 06:59 14:59 22:59 Intake Total 780 ml 500 ml 400 ml Balance 780 ml 500 ml 400 ml Intake Oral 60 ml 0 ml Tube Feeding 480 ml 240 ml 240 ml Tube Irrigant 60 ml Other 300 ml 200 ml 100 ml # Voids 2 4 0 # Bowel Movements 1 0 0 Result Diagram: 06/02/1760006/02/17 06 Objective Remarks GENERAL: Well nourished well-developed patient in no apparent distress. CARDIOVASCULAR: Regular rhythm. 2/6 murmur. RESPIRATORY: No accessory muscle use. Clear to auscultation bilaterally but decreased breath sounds as patient does not follow command to take deep breaths. GASTROINTESTINAL: Subtle bowel sounds on the left. Abdomen soft, non-tender, nondistended. MUSCULOSKELETAL: No lower extremity edema bilaterally. NEUROLOGICAL: Awake and alert. Aphasic. 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 Procedures Peg Tube placed 05/08/17 (Dr. De Los Santos) Urinary Catheter: No Vascular Central Line Catheter: No A/P Assessment and Plan Febrile illness: Improved. Could be secondary to occult infection or possible neurologic from CVA, hemorrhage 05/28 CBC, BMP were unremarkable 05/28 Chest x-ray indicated mild L lung atelectasis versus infiltrate Urinalysis was normal Blood culture 05/28 NGTD Continue Levaquin 750 mg daily for total of 7 days 05/31: Again low grade temps. CBC unremarkable. Chest x-ray appears improved from prior; no focal consolidations noted. 06/01: Again with low grade temp 100.2 last night, and temp of 99.4 axillary this morning. No antipyretic given overnight. Discussed with Dr. Clarke who agrees elevated temps are likely related to CVA as no clear evidence of infection. 06/02: CBC with normal WBC count. Afebrile last night and this morning. Intracranial hemorrhage secondary to uncontrolled hypertension and hypertensive emergency Thalamic ICH with intraventricular extension. No surgical intervention per Dr. Wang, Neurology following, ok for discharge to rehab. Continue PT/OT/ST Dysphagia suspect secondary to intracranial bleed Post PEG placement 05/09/17. Pureed diet with honey thickened liquids, tsp by tsp. Continue encouraging PO intake. Speech therapy to continue to follow Dietary consulted and made recommendations as below: Jevity 1.5 boluses of 240mls @ 9AM, 1PM, & 6PM and 120mls @ 9PM. Give boluses after meals to allow pt to eat. Flush 30mls water before and after each bolus feeding. Recommend additional 100ml water flush Q 8hrs. Honey thickened Ensure BID to trays for added hydration. Hypertension emergency: Amlodipine 10 mg daily Lisinopril 40 mg daily Apresoline 100 mg every 8 hours Catapres TTS 2 patch weekly Metoprolol 100 mg twice daily Apresoline, clonidine, Vasotec as needed 06/02: BP elevated at 152/91 this morning prior to medication, but BP improved to 118/80 this afternoon. Hypernatremia and hyperchloremia: Likely to related to decreased by mouth intake. -I confirmed with nurse that patient is receiving appropriate free water flushes as advised by dietitian. I advised nurse to push thickened Ensure as nurse indicates patient is not adequately drinking this. -06/01: Worsening Sodium 147 and Chloride stable at 110. 500 mL bolus of NS ordered. -06/02: Hypernatremia minimally improved. Cl elevated at 111. Discussed with Dr. Clarke. Will order NS @ 100 mL/hr for 24 hours. Recheck am BMP. Pre-renal azotemia: Mildly improved. Likely attributed to poor po intake. 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 Oral thrush continued: Continue fluconazole 200 mg daily for 7 days GI Prophylaxis: Prevacid via PEG tube DVT Prophylaxis: SCDs. Chemical prophylaxis contraindicated secondary to intracranial hemorrhage Discharge Planning CM following. Yuly Shafer Jun 02, 2017 11:31
[2017-06-02] MEDS ORDERED: REMOVE OLD CATAPRES (CLONIDINE) PATCH T-DERMAL SCH (12:00)
[2017-06-02 14:23] VITALS: BP 118/80; PULSE 76; RESP 18
[2017-06-02] MEDS: LEVOFLOXACIN ORAL SOLN 2500 MG/100 ML BOTTLE PEG SCH (16:49)
[2017-06-02 20:46] VITALS: BP 141/93; PULSE 91; RESP 14; TEMP 99.4; O2SAT 96
[2017-06-03] MEDS: SODIUM CHLOR 0.9% 1000 ML INJ 1,000 ML IV SCH (06:17)
[2017-06-03] MEDS: hydrALAZINE HCL 50 MG TAB PO SCH ×3 (06:17→20:59)
[2017-06-03 08:00] VITALS: BP 151/104; PULSE 95; RESP 18; TEMP 98.8; O2SAT 95
[2017-06-03] MEDS: LISINOPRIL 20 MG TAB PO SCH (08:43)
[2017-06-03] MEDS: METOPROLOL TARTRATE 100 MG TAB PO SCH ×2 (08:43→20:56)
[2017-06-03] MEDS: DOCUSATE SODIUM 50 MG/SENNA 8.6 MG TAB PO SCH ×2 (08:44→20:56)
[2017-06-03] MEDS: LANSOPRAZOLE SOLUTAB 30 MG TAB G-TUBE SCH (08:44)
[2017-06-03] MEDS: FLUCONAZOLE 200 MG TAB PO SCH (08:44)
[2017-06-03] MEDS: LACTIC ACID (AMMONIUM LACTATE) 12% LOTION 225 GM BTL TOPICAL SCH ×2 (08:45→20:56)
[2017-06-03 09:03] LABS: BICARBONATE 25.2 MEQ/L (21.0-32.0); CALCIUM 8.6 MG/DL (8.5-10.1)
[2017-06-03 09:07] LABS: CREATININE 0.29 MG/DL (0.50-1.00)
--- NOTE | 2017-06-03 09:45 | HHI.PR ---
Subjective Remarks Follow-up for hemorrhagic CVA, low grade temps, dehydration. Patient is aphasic. Patient denies any fevers or chills, cough or shortness of breath, vomiting, or diarrhea Objective Vitals Vital Signs Date Time Temp Pulse Resp B/P Pulse Ox O2 Delivery O2 Flow Rate FiO2 06/02/17 20:46 99.4 91 14 141/93 96 06/02/17 14:23 76 18 118/80 I/O 06/02/17 06/02/17 06/02/17 06/03/17 06/03/17 06/03/17 07:00 15:00 23:00 07:00 15:00 23:00 Intake Total 700 ml 1576 ml 1102 ml Balance 700 ml 1576 ml 1102 ml Intake Oral 0 ml IV Total 896 ml 982 ml Tube Feeding 480 ml 360 ml Tube Irrigant 120 ml 60 ml Other 100 ml 260 ml 120 ml # Voids 0 2 # Bowel Movements 0 2 3 Result Diagram: 06/02/17 0601 06/03/17 0820 Objective Remarks GENERAL: Well nourished well-developed patient in no apparent distress. EYES: Mild drainage at the inner corner of the R eye. CARDIOVASCULAR: Tachycardic rate 92 bpm with regular rhythm. 2/6 murmur. RESPIRATORY: No accessory muscle use. Clear to auscultation bilaterally. GASTROINTESTINAL: Abdomen soft, non-tender, nondistended. MUSCULOSKELETAL: No lower extremity edema bilaterally. NEUROLOGICAL: Awake and alert. Aphasic. Weak flarer strength left hand. Procedures Peg Tube placed 05/08/17 (Dr. De Los Santos) Urinary Catheter: No Vascular Central Line Catheter: No A/P Assessment and Plan Febrile illness: Resolved. Could be secondary to occult infection or possible neurologic from CVA, hemorrhage 05/28 CBC, BMP were unremarkable 05/28 Chest x-ray indicated mild L lung atelectasis versus infiltrate Urinalysis was normal Blood culture 05/28 NGTD Continue Levaquin 750 mg daily for total of 7 days 05/31: Again low grade temps. CBCs unremarkable. 05/31 Chest x-ray appears improved from prior; no focal consolidations noted. Likely related to CVA. 06/03: Remains afebrile. Intracranial hemorrhage secondary to uncontrolled hypertension and hypertensive emergency Thalamic ICH with intraventricular extension. No surgical intervention per Dr. Wang, Neurology following, ok for discharge to rehab. Continue PT/OT/ST Dysphagia suspect secondary to intracranial bleed Post PEG placement 05/09/17. Pureed diet with honey thickened liquids, tsp by tsp. Continue encouraging PO intake. Speech therapy to continue to follow Dietary consulted and made recommendations as below: Jevity 1.5 boluses of 240mls @ 9AM, 1PM, & 6PM and 120mls @ 9PM. Give boluses after meals to allow pt to eat. Flush 30mls water before and after each bolus feeding. Recommend additional 100ml water flush Q 8hrs. Honey thickened Ensure BID to trays for added hydration. Hypertension emergency: Amlodipine 10 mg daily Lisinopril 40 mg daily Apresoline 100 mg every 8 hours Catapres TTS 2 patch weekly Metoprolol 100 mg twice daily Apresoline, clonidine, Vasotec as needed 06/03: BP elevated again this morning, could be partially attributed to IVF. Monitor and adjust medication as needed. Hypernatremia and hyperchloremia: Likely to related to decreased by mouth intake. -I confirmed with nurse that patient is receiving appropriate free water flushes as advised by dietitian. I advised nurse to push thickened Ensure as nurse indicates patient is not adequately drinking this. -06/03: Hypernatremia resolved. Cl stable at 110. Discontinue IV NS. Pre-renal azotemia: Resolved. Likely attributed to poor po intake. -Continue free water flushes -06/03: BUN 11. IVF discontinued. Hyperglycemia Hemoglobin A1c 6.2 Glucerna 1.5 to feeding Xeroderma on bilateral feet: Lac-Hydrin 12% Lotion continued. Oral thrush continued: Continue fluconazole 200 mg daily for 7 days GI Prophylaxis: Prevacid via PEG tube DVT Prophylaxis: SCDs. Chemical prophylaxis contraindicated secondary to intracranial hemorrhage Discharge Planning CM following. Yuly Shafer Jun 03, 2017 09:45 Yuly Shafer Jun 03, 2017 09:45
[2017-06-03] MEDS: LEVOFLOXACIN ORAL SOLN 2500 MG/100 ML BOTTLE PEG SCH (16:30)
[2017-06-03 20:00] VITALS: BP 144/92; PULSE 89; RESP 20; TEMP 98.1; O2SAT 97
[2017-06-04 04:00] VITALS: BP 155/94
[2017-06-04] MEDS: hydrALAZINE HCL 50 MG TAB PO SCH ×3 (06:25→22:00)
[2017-06-04 08:00] VITALS: BP 130/91; PULSE 88; RESP 18; TEMP 98.7; O2SAT 95
[2017-06-04] MEDS: DOCUSATE SODIUM 50 MG/SENNA 8.6 MG TAB PO SCH ×2 (08:22→20:40)
[2017-06-04] MEDS: LISINOPRIL 20 MG TAB PO SCH (08:22)
[2017-06-04] MEDS: LANSOPRAZOLE SOLUTAB 30 MG TAB G-TUBE SCH (08:23)
[2017-06-04] MEDS: METOPROLOL TARTRATE 100 MG TAB PO SCH ×2 (08:23→20:40)
[2017-06-04] MEDS: LACTIC ACID (AMMONIUM LACTATE) 12% LOTION 225 GM BTL TOPICAL SCH ×2 (08:24→20:41)
--- NOTE | 2017-06-04 10:01 | HHI.PR ---
Subjective Remarks Follow-up for hemorrhagic CVA, low grade temps, dehydration. Patient is aphasic. She is noted to have some conjunctival injection, but denies any itching in the eyes. Denies any shortness of breath. Objective Vitals Vital Signs Date Time Temp Pulse Resp B/P Pulse Ox O2 Delivery O2 Flow Rate FiO2 06/04/17 04:00 155/94 06/03/17 20:00 98.1 89 20 144/92 97 I/O 06/03/17 06/03/17 06/03/17 06/04/17 06/04/17 06/04/17 06:59 14:59 22:59 06:59 14:59 22:59 Intake Total 1102 ml 0 ml Output Total 1 ml Balance 1102 ml -1 ml 0 ml Intake Oral 0 ml IV Total 982 ml Other 120 ml Stool Total 1 ml # Voids 2 4 1 # Bowel Movements 3 1 Result Diagram: 06/02/17 0601 06/03/17 0820 Objective Remarks GENERAL: Well nourished well-developed patient in no apparent distress. EYES: Conjunctival injection bilaterally, worse on the left. There is a minimal amount of white drainage at the inner corner of the Left eye, but not real purulence; tearing laterally. No crusting. CARDIOVASCULAR: Regular rhythm. 2/6 murmur heard best at [facility] today. RESPIRATORY: No accessory muscle use. Clear to auscultation bilaterally. GASTROINTESTINAL: Abdomen soft, non-tender, nondistended. NEUROLOGICAL: Awake and alert. Aphasic. 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 Can only slightly move her left leg. 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 Procedures Peg Tube placed 05/08/17 (Dr. De Los Santos) Urinary Catheter: No Vascular Central Line Catheter: No A/P Assessment and Plan Febrile illness: Resolved. Could be secondary to occult infection or possible neurologic from CVA, hemorrhage 05/28 CBC, BMP were unremarkable 05/28 Chest x-ray indicated mild L lung atelectasis versus infiltrate Urinalysis was normal Blood culture 05/28 NGTD Continue Levaquin 750 mg daily for total of 7 days 05/31: Again low grade temps. CBCs unremarkable. 05/31 Chest x-ray appears improved from prior; no focal consolidations noted. Likely related to CVA. Intracranial hemorrhage secondary to uncontrolled hypertension and hypertensive emergency Thalamic ICH with intraventricular extension. No surgical intervention per Dr. Wang, Neurology following, ok for discharge to rehab. Continue PT/OT/ST Dysphagia suspect secondary to intracranial bleed Post PEG placement 05/09/17. Pureed diet with honey thickened liquids, tsp by tsp. Continue encouraging PO intake. Speech therapy to continue to follow Dietary consulted and made recommendations as below: Jevity 1.5 boluses of 240mls @ 9AM, 1PM, & 6PM and 120mls @ 9PM. Give boluses after meals to allow pt to eat. Flush 30mls water before and after each bolus feeding. Recommend additional 100ml water flush Q 8hrs. Honey thickened Ensure BID to trays for added hydration. Hypertension emergency: HTN improved this morning. Amlodipine 10 mg daily Lisinopril 40 mg daily Apresoline 100 mg every 8 hours Catapres TTS 2 patch weekly Metoprolol 100 mg twice daily Apresoline, clonidine, Vasotec as needed Hypernatremia and hyperchloremia: Likely to related to decreased by mouth intake. Hypernatremia resolved. Cl stable at 110. -I confirmed with nurse that patient is receiving appropriate free water flushes as advised by dietitian. I advised nurse to push thickened Ensure as nurse indicates patient is not adequately drinking this. -S/p IVF -Monitor BMP periodically. Pre-renal azotemia: Resolved. Likely attributed to poor po intake. -Continue free water flushes -S/p IVF Hyperglycemia Hemoglobin A1c 6.2 Glucerna 1.5 to feeding Xeroderma on bilateral feet: Lac-Hydrin 12% Lotion continued. Oral thrush continued: Fluconazole 200 mg daily for 7 days complete GI Prophylaxis: Prevacid via PEG tube Conjunctival injection: Could be due to dry eyes, allergies, viral or bacterial. Not convinced of true bacterial infection at this time. Will recheck tomorrow. If persists, can start eyedrops. DVT Prophylaxis: SCDs. Chemical prophylaxis contraindicated secondary to intracranial hemorrhage Discharge Planning CM following. Yuly Shafer Jun 04, 2017 10:01
[2017-06-04] MEDS: LEVOFLOXACIN ORAL SOLN 2500 MG/100 ML BOTTLE PEG SCH (16:20)
[2017-06-04 20:00] VITALS: BP 147/97; PULSE 92; RESP 16; TEMP 99.1; O2SAT 99
[2017-06-05] MEDS: hydrALAZINE HCL 50 MG TAB PO SCH ×3 (06:00→21:28)
[2017-06-05 08:27] VITALS: BP 154/106; PULSE 94; RESP 19; TEMP 97.6; O2SAT 99
[2017-06-05] MEDS: LANSOPRAZOLE SOLUTAB 30 MG TAB G-TUBE SCH (09:08)
[2017-06-05] MEDS: METOPROLOL TARTRATE 100 MG TAB PO SCH ×2 (09:08→21:27)
[2017-06-05] MEDS: LISINOPRIL 20 MG TAB PO SCH (09:08)
[2017-06-05] MEDS: DOCUSATE SODIUM 50 MG/SENNA 8.6 MG TAB PO SCH ×2 (09:08→21:27)
[2017-06-05] MEDS: LACTIC ACID (AMMONIUM LACTATE) 12% LOTION 225 GM BTL TOPICAL SCH ×2 (09:08→21:28)
--- NOTE | 2017-06-05 10:44 | HHI.PR ---
Subjective Remarks Follow-up for hemorrhagic CVA. Patient aphasic. She nods her head to answer questions. Eyes noted to be injected again. Denies any ARELLANO, blurred vision, itching of the eyes. Denies sob. Objective Vitals Vital Signs Date Time Temp Pulse Resp B/P Pulse Ox O2 Delivery O2 Flow Rate FiO2 06/05/17 08:27 97.6 94 19 154/106 99 06/04/17 20:00 99.1 92 16 147/97 99 I/O 06/04/17 06/04/17 06/04/17 06/05/17 06/05/17 06/05/17 07:00 15:00 23:00 07:00 15:00 23:00 Intake Total 0 ml 900 ml 600 ml Output Total 1 ml Balance 0 ml 899 ml 600 ml Intake Oral 0 ml 420 ml Tube Feeding 720 ml 180 ml Other 180 ml Stool Total 1 ml # Voids 1 3 2 # Bowel Movements 1 1 Result Diagram: 06/02/17 0601 06/03/17 0820 Objective Remarks GENERAL: Well nourished well-developed patient in no apparent distress. EYES: Conjunctival injection bilaterally. No drainage or crusting noted. No inflammation of the inferior palpebra conjunctivae. CARDIOVASCULAR: Regular rhythm. 2/6 murmur heard at the LLSB. RESPIRATORY: No accessory muscle use. Clear to auscultation bilaterally. GASTROINTESTINAL: Abdomen soft, non-tender, nondistended. MUSCULOSKELETAL: No lower extremity edema bilaterally. NEUROLOGICAL: Awake and alert. Aphasic. 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 Procedures Peg Tube placed 05/08/17 (Dr. De Los Santos) Urinary Catheter: No Vascular Central Line Catheter: No A/P Assessment and Plan Febrile illness: Resolved. Could be secondary to occult infection or possible neurologic from CVA, hemorrhage 05/28 CBC, BMP were unremarkable 05/28 Chest x-ray indicated mild L lung atelectasis versus infiltrate Urinalysis was normal Blood culture 05/28 NGTD Continue Levaquin 750 mg daily for total of 7 days 05/31: Again low grade temps. CBCs unremarkable. 05/31 Chest x-ray appears improved from prior; no focal consolidations noted. Likely related to CVA. Intracranial hemorrhage secondary to uncontrolled hypertension and hypertensive emergency Thalamic ICH with intraventricular extension. No surgical intervention per Dr. Wang, Neurology following, ok for discharge to rehab. Continue PT/OT/ST Dysphagia suspect secondary to intracranial bleed Post PEG placement 05/09/17. Pureed diet with honey thickened liquids, tsp by tsp. Continue encouraging PO intake. Speech therapy to continue to follow Dietary consulted and made recommendations as below: Jevity 1.5 boluses of 240mls @ 9AM, 1PM, & 6PM and 120mls @ 9PM. Give boluses after meals to allow pt to eat. Flush 30mls water before and after each bolus feeding. Recommend additional 100ml water flush Q 8hrs. Honey thickened Ensure BID to trays for added hydration. Hypertension emergency: HTN persistent. Amlodipine 10 mg daily Lisinopril 40 mg daily Apresoline 100 mg every 8 hours Catapres TTS 2 patch weekly Metoprolol 100 mg twice daily Apresoline, clonidine, Vasotec as needed BP elevated this morning before BP medication administration. BP 160/84 this afternoon prior to Apresoline dose. Will see if nighttime BP improved. If not, may need to start a thiazide diuretic as patient is already on every other class of medication. Hypernatremia and hyperchloremia: Likely to related to decreased by mouth intake. Hypernatremia resolved. Cl stable at 110. -I confirmed with nurse that patient is receiving appropriate free water flushes as advised by dietitian. I advised nurse to push thickened Ensure as nurse indicates patient is not adequately drinking this. -S/p IVF -Monitor BMP periodically. Pre-renal azotemia: Resolved. Likely attributed to poor po intake. -Continue free water flushes -S/p IVF Hyperglycemia Hemoglobin A1c 6.2 Glucerna 1.5 to feeding Xeroderma on bilateral feet: Lac-Hydrin 12% Lotion continued. Oral thrush continued: Fluconazole 200 mg daily for 7 days complete GI Prophylaxis: Prevacid via PEG tube Conjunctival injection: Could be due to dry eyes, allergies, or viral. Does not appear bacterial. Monitor. DVT Prophylaxis: SCDs. Chemical prophylaxis contraindicated secondary to intracranial hemorrhage Discharge Planning CM following. Yuly Shafer Jun 05, 2017 10:44
[2017-06-05 13:13] VITALS: BP 160/84
[2017-06-05 19:15] VITALS: BP 152/88; PULSE 82; RESP 16; TEMP 97.6; O2SAT 99
[2017-06-06] MEDS: hydrALAZINE HCL 50 MG TAB PO SCH ×3 (05:59→21:46)
[2017-06-06 08:00] VITALS: BP 147/94; PULSE 89; RESP 18; TEMP 97.3; O2SAT 100
[2017-06-06] MEDS: LANSOPRAZOLE SOLUTAB 30 MG TAB G-TUBE SCH (09:46)
[2017-06-06] MEDS: METOPROLOL TARTRATE 100 MG TAB PO SCH ×2 (09:46→20:59)
[2017-06-06] MEDS: LISINOPRIL 20 MG TAB PO SCH (09:46)
[2017-06-06] MEDS: DOCUSATE SODIUM 50 MG/SENNA 8.6 MG TAB PO SCH ×2 (09:47→20:59)
[2017-06-06] MEDS: LACTIC ACID (AMMONIUM LACTATE) 12% LOTION 225 GM BTL TOPICAL SCH ×2 (09:47→21:00)
[2017-06-06 12:19] VITALS: BP 120/71
--- NOTE | 2017-06-06 12:45 | HHI.PR ---
Subjective Remarks Patient examined today for follow-up on intracranial hemorrhage, hemorrhagic CVA. Patient does not indicate any new complaints. no change in clinical status. Objective Vitals Vital Signs Date Time Temp Pulse Resp B/P Pulse Ox O2 Delivery O2 Flow Rate FiO2 06/06/17 12:19 120/71 06/06/17 08:00 97.3 89 18 147/94 100 06/05/17 19:15 97.6 82 16 152/88 99 06/05/17 13:13 160/84 I/O 06/05/17 06/05/17 06/05/17 06/06/17 06/06/17 06/06/17 07:00 15:00 23:00 07:00 15:00 23:00 Intake Total 600 ml 430 ml 100 ml 900 ml Balance 600 ml 430 ml 100 ml 900 ml Intake Oral 420 ml 210 ml Tube Feeding 180 ml 120 ml 720 ml Tube Irrigant 100 ml 100 ml Other 180 ml # Voids 2 4 # Bowel Movements 1 1 Result Diagram: 06/02/17 0601 06/03/17 0820 Objective Remarks GENERAL: Well-developed, well-nourished, in no acute distress. Awake, responds minimally with head nods. HEENT: Head is normocephalic without any lesions or masses noted. Facial features are symmetric. Eyes: Conjunctivae were clear. CARDIAC: Regular rhythm, regular rate. S1/S2 are heard. 2 or 6 ejection, no gallops or rubs. LUNGS: Clear to auscultation bilaterally. No wheeze, rhonchi or rales. No use of accessory muscles on inspiration or expiration. ABDOMEN: Soft, nontender. Nondistended. Bowel sounds heard in all 4 quadrants. No organomegaly or masses. Negative rebound, negative guarding, PEG tube noted without any signs of infection EXTREMITIES: No edema, pulses are equal bilaterally. No cyanosis or clubbing NEUROLOGY: Patient is moving left upper extremity and able to move left foot. Patient unable to move right upper and lower extremity. Procedures Peg Tube placed 05/08/17 (Dr. De Los Santos) Urinary Catheter: No Vascular Central Line Catheter: No A/P Assessment and Plan Intracranial hemorrhage secondary to uncontrolled hypertension and hypertensive emergency Thalamic ICH with intraventricular extension. No surgical intervention per Dr. Wang, Neurology following, ok for discharge to rehab. Continue PT/OT/ST Dysphagia suspect secondary to intracranial bleed Post PEG placement 05/09/17. Pureed diet with honey thickened liquids, Continue encouraging PO intake. Speech therapy to continue to follow and advance diet per exam Dietary consulted and made recommendations for bolus feeding Hypertension emergency, blood pressure still uncontrolled Amlodipine 10 mg daily Lisinopril 40 mg daily Apresoline 100 mg every 8 hours Catapres TTS 2 patch weekly, changed to TTS 3 patch Metoprolol 100 mg twice daily Apresoline, clonidine, Vasotec as needed Febrile illness, low-grade fever, resolved Could be secondary to occult infection or possible neurologic from CVA, hemorrhage CBC, BMP were unremarkable chest x-ray indicated atelectasis versus infiltrate urinalysis was normal blood culture negative for 5 days Completed Levaquin 750 mg daily for 7 days Hyperglycemia Hemoglobin A1c 6.2 Glucerna 1.5 tube feeding Xeroderma on bilateral feet: Lac-Hydrin 12% Lotion continued. Oral thrush continued: Completed fluconazole 200 mg daily for 7 days GI Prophylaxis: Prevacid via PEG tube DVT Prophylaxis: Sequential compression devices, chemical prophylaxis contraindicated secondary to intracranial hemorrhage Discharge Planning Discharge planning per case management Kayden Kelley Jun 06, 2017 12:45
[2017-06-06] MEDS: REMOVE OLD CATAPRES (CLONIDINE) PATCH T-DERMAL SCH (15:00)
[2017-06-06] MEDS: cloNIDine HCL 0.3 MG/24 HR PATCH T-DERMAL SCH (16:26)
[2017-06-06 20:00] VITALS: BP 142/101; PULSE 80; RESP 20; TEMP 99.3; O2SAT 99
[2017-06-07] MEDS: hydrALAZINE HCL 50 MG TAB PO SCH ×3 (05:39→21:12)
[2017-06-07] MEDS: LANSOPRAZOLE SOLUTAB 30 MG TAB G-TUBE SCH (08:31)
[2017-06-07] MEDS: METOPROLOL TARTRATE 100 MG TAB PO SCH ×2 (08:31→21:08)
[2017-06-07] MEDS: DOCUSATE SODIUM 50 MG/SENNA 8.6 MG TAB PO SCH ×2 (08:31→21:08)
[2017-06-07] MEDS: LISINOPRIL 20 MG TAB PO SCH (08:31)
[2017-06-07] MEDS: LACTIC ACID (AMMONIUM LACTATE) 12% LOTION 225 GM BTL TOPICAL SCH ×2 (08:34→21:14)
[2017-06-07 08:36] LABS: AUTOMATED NEUTROPHIL # 2.9 TH/MM3 (1.8-7.7); BASOPHIL % 0.9 % (0.0-2.0); EOSINOPHIL # 0.1 TH/MM3 (0-0.4); EOSINOPHIL % 2.3 % (0.0-4.0); HEMATOCRIT 39.9 % (35.0-46.0); HEMOGLOBIN 13.3 GM/DL (11.6-15.3); LYMPH % 25.9 % (9.0-44.0); LYMPHOCYTE # 1.2 TH/MM3 (1.0-4.8); MEAN CORPUSCULAR HGB CONC 33.3 % (32.0-36.0); MEAN PLATELET VOLUME 9.5 FL (7.0-11.0); MONO % 11.8 % (0.0-8.0); MONOCYTE # 0.6 TH/MM3 (0-0.9); NEUT % 59.1 % (16.0-70.0); PLATELET COUNT 292 TH/MM3 (150-450); RED BLOOD COUNT 4.59 MIL/MM3 (4.00-5.30); WHITE BLOOD COUNT 4.8 TH/MM3 (4.0-11.0)
[2017-06-07 08:48] LABS: BICARBONATE 28.9 MEQ/L (21.0-32.0); MAGNESIUM 2.1 MG/DL (1.5-2.5)
[2017-06-07 08:51] LABS: CREATININE 0.33 MG/DL (0.50-1.00)
[2017-06-07 10:15] VITALS: BP 114/87; PULSE 103; RESP 16; TEMP 96; O2SAT 98
--- NOTE | 2017-06-07 11:12 | HHI.PR ---
Subjective Remarks Patient seen and examined today for follow-up on intracranial hemorrhage, hemorrhagic CVA. Patient does shake her head yes and no. Does not indicate any new complaints. Resting comfortably. Objective Vitals Vital Signs Date Time Temp Pulse Resp B/P Pulse Ox O2 Delivery O2 Flow Rate FiO2 06/07/17 10:15 96.0 103 16 114/87 98 06/06/17 20:00 99.3 80 20 142/101 99 06/06/17 12:19 120/71 I/O 06/06/17 06/06/17 06/06/17 06/07/17 06/07/17 06/07/17 07:00 15:00 23:00 07:00 15:00 23:00 Intake Total 100 ml 900 ml 0 ml 60 ml 100 ml Balance 100 ml 900 ml 0 ml 60 ml 100 ml Intake Oral 0 ml 60 ml 100 ml Tube Feeding 720 ml Tube Irrigant 100 ml Other 180 ml # Voids 1 2 # Bowel Movements 0 1 Result Diagram: 06/07/17 0750 06/07/17 0750 Objective Remarks GENERAL: Well-developed, well-nourished, in no acute distress. Awake, responds minimally with head nods. HEENT: Head is normocephalic without any lesions or masses noted. Facial features are symmetric. Eyes: Conjunctivae were clear. CARDIAC: Regular rhythm, regular rate. S1/S2 are heard. 2 or 6 ejection, no gallops or rubs. LUNGS: Clear to auscultation bilaterally. No wheeze, rhonchi or rales. No use of accessory muscles on inspiration or expiration. ABDOMEN: Soft, nontender. Nondistended. Bowel sounds heard in all 4 quadrants. No organomegaly or masses. Negative rebound, negative guarding, PEG tube noted without any signs of infection EXTREMITIES: No edema, pulses are equal bilaterally. No cyanosis or clubbing NEUROLOGY: Patient is moving left upper extremity and able to move left foot. Patient unable to move right upper and lower extremity. Procedures Peg Tube placed 05/08/17 (Dr. De Los Santos) Urinary Catheter: No Vascular Central Line Catheter: No A/P Assessment and Plan Intracranial hemorrhage secondary to uncontrolled hypertension and hypertensive emergency Thalamic ICH with intraventricular extension. No surgical intervention per Dr. Wang, Neurology following, ok for discharge to rehab. Continue PT/OT/ST Dysphagia suspect secondary to intracranial bleed Post PEG placement 05/09/17. Pureed diet with honey thickened liquids, Continue encouraging PO intake. Speech therapy to continue to follow and advance diet per exam Dietary consulted and made recommendations for bolus feeding Hypertension emergency, blood pressure improving Amlodipine 10 mg daily Lisinopril 40 mg daily Apresoline 100 mg every 8 hours Catapres TTS 3 patch Metoprolol 100 mg twice daily Apresoline, clonidine, Vasotec as needed Febrile illness, low-grade fever, resolved Could be secondary to occult infection or possible neurologic from CVA, hemorrhage CBC, BMP were unremarkable chest x-ray indicated atelectasis versus infiltrate urinalysis was normal blood culture negative for 5 days Completed Levaquin 750 mg daily for 7 days Hyperglycemia Hemoglobin A1c 6.2 Glucerna 1.5 tube feeding 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 Oral thrush: Resolved Completed fluconazole 200 mg daily for 7 days GI Prophylaxis: Prevacid via PEG tube DVT Prophylaxis: Sequential compression devices, chemical prophylaxis contraindicated secondary to intracranial hemorrhage Patient's chart was reviewed. Patient examined. No change in treatment plan Discharge Planning Discharge planning per case management Kayden Kelley Jun 07, 2017 11:12
[2017-06-07 12:46] VITALS: BP 161/86
[2017-06-07 21:36] VITALS: BP 170/102; PULSE 95; RESP 16; TEMP 97.3; O2SAT 97
[2017-06-08] MEDS: hydrALAZINE HCL 50 MG TAB PO SCH ×3 (05:33→21:40)
[2017-06-08 08:00] VITALS: BP 124/74; PULSE 106; RESP 18; TEMP 97.3; O2SAT 97
[2017-06-08] MEDS: LACTIC ACID (AMMONIUM LACTATE) 12% LOTION 225 GM BTL TOPICAL SCH ×2 (09:22→21:39)
[2017-06-08] MEDS: DOCUSATE SODIUM 50 MG/SENNA 8.6 MG TAB PO SCH ×2 (09:22→21:00)
[2017-06-08] MEDS: LANSOPRAZOLE SOLUTAB 30 MG TAB G-TUBE SCH (09:22)
[2017-06-08] MEDS: LISINOPRIL 20 MG TAB PO SCH (09:22)
[2017-06-08] MEDS: METOPROLOL TARTRATE 100 MG TAB PO SCH ×2 (09:22→21:00)
--- NOTE | 2017-06-08 13:09 | HHI.PR ---
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 Patient lying in bed comfortably. Does shake her head yes and no. Does not indicate any new complaints or problems. Objective Vitals Vital Signs Date Time Temp Pulse Resp B/P Pulse Ox O2 Delivery O2 Flow Rate FiO2 06/07/17 21:36 97.3 95 16 170/102 97 I/O 06/07/17 06/07/17 06/07/17 06/08/17 06/08/17 06/08/17 06:59 14:59 22:59 06:59 14:59 22:59 Intake Total 60 ml 100 ml 150 ml 340 ml Balance 60 ml 100 ml 150 ml 340 ml Intake Oral 60 ml 100 ml 150 ml Tube Feeding 240 ml Other 100 ml # Voids 2 3 # Bowel Movements 1 Result Diagram: 06/07/17 0750 06/07/17 0750 Objective Remarks GENERAL: Well-developed, well-nourished, in no acute distress. Awake, responds minimally with head nods. HEENT: Head is normocephalic without any lesions or masses noted. Facial features are symmetric. Eyes: Conjunctivae were clear. CARDIAC: Regular rhythm, regular rate. S1/S2 are heard. 2 or 6 ejection, no gallops or rubs. LUNGS: Clear to auscultation bilaterally. No wheeze, rhonchi or rales. No use of accessory muscles on inspiration or expiration. ABDOMEN: Soft, nontender. Nondistended. Bowel sounds heard in all 4 quadrants. No organomegaly or masses. Negative rebound, negative guarding, PEG tube noted without any signs of infection EXTREMITIES: No edema, pulses are equal bilaterally. No cyanosis or clubbing NEUROLOGY: Patient is moving left upper extremity and able to move left foot. Patient unable to move right upper and lower extremity. Procedures Peg Tube placed 05/08/17 (Dr. De Los Santos) Urinary Catheter: No Vascular Central Line Catheter: No A/P Assessment and Plan Intracranial hemorrhage secondary to uncontrolled hypertension and hypertensive emergency Thalamic ICH with intraventricular extension. No surgical intervention per Dr. Wang, Neurology following, ok for discharge to rehab. Continue PT/OT/ST Dysphagia suspect secondary to intracranial bleed Post PEG placement 05/09/17. Pureed diet with honey thickened liquids, Continue encouraging PO intake. Speech therapy to continue to follow and advance diet per exam Dietary consulted and made recommendations for bolus feeding Hypertension emergency, Amlodipine 10 mg daily Lisinopril 40 mg daily Apresoline 100 mg every 8 hours Catapres TTS 3 patch Metoprolol 100 mg twice daily Apresoline, clonidine, Vasotec as needed Febrile illness, low-grade fever, resolved Could be secondary to occult infection or possible neurologic from CVA, hemorrhage CBC, BMP were unremarkable chest x-ray indicated atelectasis versus infiltrate urinalysis was normal blood culture negative for 5 days Completed Levaquin 750 mg daily for 7 days Hyperglycemia Hemoglobin A1c 6.2 Glucerna 1.5 tube feeding Xeroderma on bilateral feet: Lac-Hydrin 12% Lotion continued. Oral thrush: Resolved Completed fluconazole 200 mg daily for 7 days GI Prophylaxis: Prevacid via PEG tube DVT Prophylaxis: Sequential compression devices, chemical prophylaxis contraindicated secondary to intracranial hemorrhage Patient's chart was reviewed. Patient examined. No change in treatment plan Discharge Planning Discharge planning per case management Kayden Kelley Jun 08, 2017 13:09
[2017-06-08 20:00] VITALS: BP 143/88; PULSE 80; RESP 16; TEMP 99.6; O2SAT 98
[2017-06-09] MEDS: hydrALAZINE HCL 50 MG TAB PO SCH ×3 (06:13→21:26)
[2017-06-09 08:00] VITALS: BP 130/89; PULSE 82; RESP 18; TEMP 98.9; O2SAT 95
[2017-06-09] MEDS: LANSOPRAZOLE SOLUTAB 30 MG TAB G-TUBE SCH (09:13)
[2017-06-09] MEDS: METOPROLOL TARTRATE 100 MG TAB PO SCH ×2 (09:13→21:26)
[2017-06-09] MEDS: DOCUSATE SODIUM 50 MG/SENNA 8.6 MG TAB PO SCH ×2 (09:13→21:26)
[2017-06-09] MEDS: LISINOPRIL 20 MG TAB PO SCH (09:13)
[2017-06-09] MEDS: LACTIC ACID (AMMONIUM LACTATE) 12% LOTION 225 GM BTL TOPICAL SCH ×2 (09:14→21:26)
--- NOTE | 2017-06-09 10:41 | HHI.PR ---
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 Patient lying in bed comfortably. Does not indicate any new problems today. Continue present treatment plan Objective Vitals Vital Signs Date Time Temp Pulse Resp B/P Pulse Ox O2 Delivery O2 Flow Rate FiO2 06/09/17 08:00 98.9 82 18 130/89 95 06/08/17 20:00 99.6 80 16 143/88 98 I/O 06/08/17 06/08/17 06/08/17 06/09/17 06/09/17 06/09/17 06:59 14:59 22:59 06:59 14:59 22:59 Intake Total 580 ml 340 ml 590 ml Balance 580 ml 340 ml 590 ml Tube Feeding 480 ml 240 ml 240 ml Other 100 ml 100 ml 350 ml # Voids 5 3 # Bowel Movements 1 0 Result Diagram: 06/07/17 0750 06/07/17 0750 Objective Remarks GENERAL: Well-developed, well-nourished, in no acute distress. Awake, responds minimally with head nods. HEENT: Head is normocephalic without any lesions or masses noted. Facial features are symmetric. Eyes: Conjunctivae were clear. CARDIAC: Regular rhythm, regular rate. S1/S2 are heard. 2 or 6 ejection, no gallops or rubs. LUNGS: Clear to auscultation bilaterally. No wheeze, rhonchi or rales. No use of accessory muscles on inspiration or expiration. ABDOMEN: Soft, nontender. Nondistended. Bowel sounds heard in all 4 quadrants. No organomegaly or masses. Negative rebound, negative guarding, PEG tube noted without any signs of infection EXTREMITIES: No edema, pulses are equal bilaterally. No cyanosis or clubbing NEUROLOGY: Patient is moving left upper extremity and able to move left foot. Patient unable to move right upper and lower extremity. Procedures Peg Tube placed 05/08/17 (Dr. De Los Santos) Urinary Catheter: No Vascular Central Line Catheter: No A/P Assessment and Plan Intracranial hemorrhage secondary to uncontrolled hypertension and hypertensive emergency Thalamic ICH with intraventricular extension. No surgical intervention per Dr. Wang, Neurology following, ok for discharge to rehab. Continue PT/OT/ST Dysphagia suspect secondary to intracranial bleed Post PEG placement 05/09/17. Pureed diet with honey thickened liquids, Continue encouraging PO intake. Speech therapy to continue to follow and advance diet per exam Dietary consulted and made recommendations for bolus feeding Hypertension emergency, Amlodipine 10 mg daily Lisinopril 40 mg daily Apresoline 100 mg every 8 hours Catapres TTS 3 patch Metoprolol 100 mg twice daily Apresoline, clonidine, Vasotec as needed Febrile illness, low-grade fever, resolved Could be secondary to occult infection or possible neurologic from CVA, hemorrhage CBC, BMP were unremarkable chest x-ray indicated atelectasis versus infiltrate urinalysis was normal blood culture negative for 5 days Completed Levaquin 750 mg daily for 7 days Hyperglycemia Hemoglobin A1c 6.2 Glucerna 1.5 tube feeding Xeroderma on bilateral feet: Lac-Hydrin 12% Lotion continued. GI Prophylaxis: Prevacid via PEG tube DVT Prophylaxis: Sequential compression devices, chemical prophylaxis contraindicated secondary to intracranial hemorrhage Patient's chart was reviewed. Patient examined. No change in treatment plan Discharge Planning Discharge planning per case management Kayden Kelley Jun 09, 2017 10:41
[2017-06-09 20:00] VITALS: BP 135/89; PULSE 86; RESP 18; TEMP 99.6; O2SAT 97
[2017-06-10] MEDS: hydrALAZINE HCL 50 MG TAB PO SCH ×2 (06:18→16:56)
[2017-06-10] MEDS: METOPROLOL TARTRATE 100 MG TAB PO SCH ×2 (08:39→20:50)
[2017-06-10] MEDS: DOCUSATE SODIUM 50 MG/SENNA 8.6 MG TAB PO SCH ×2 (08:39→20:50)
[2017-06-10] MEDS: LANSOPRAZOLE SOLUTAB 30 MG TAB G-TUBE SCH (08:39)
[2017-06-10] MEDS: LISINOPRIL 20 MG TAB PO SCH (08:39)
[2017-06-10] MEDS: LACTIC ACID (AMMONIUM LACTATE) 12% LOTION 225 GM BTL TOPICAL SCH ×2 (08:39→20:51)
[2017-06-10 10:19] VITALS: BP 164/101; PULSE 87; RESP 16; TEMP 96.4; O2SAT 98
--- NOTE | 2017-06-10 12:02 | HHI.PR ---
Subjective Remarks Patient seen and examined today for follow-up on intracranial hemorrhage, hemorrhagic CVA. Patient denies any new complaints. No change in clinical status. Objective Vitals Vital Signs Date Time Temp Pulse Resp B/P Pulse Ox O2 Delivery O2 Flow Rate FiO2 06/10/17 10:19 96.4 87 16 164/101 98 06/09/17 20:00 99.6 86 18 135/89 97 I/O 06/09/17 06/09/17 06/09/17 06/10/17 06/10/17 06/10/17 07:00 15:00 23:00 07:00 15:00 23:00 Intake Total 690 ml Balance 690 ml Tube Feeding 240 ml Other 450 ml # Voids 3 2 2 1 # Bowel Movements 0 1 0 Result Diagram: 06/07/17 0750 06/07/17 0750 Objective Remarks GENERAL: Well-developed, well-nourished, in no acute distress. Awake, responds minimally with head nods. HEENT: Head is normocephalic without any lesions or masses noted. Facial features are symmetric. Eyes: Conjunctivae were clear. CARDIAC: Regular rhythm, regular rate. S1/S2 are heard. 2 or 6 ejection, no gallops or rubs. LUNGS: Clear to auscultation bilaterally. No wheeze, rhonchi or rales. No use of accessory muscles on inspiration or expiration. ABDOMEN: Soft, nontender. Nondistended. Bowel sounds heard in all 4 quadrants. No organomegaly or masses. Negative rebound, negative guarding, PEG tube noted without any signs of infection EXTREMITIES: No edema, pulses are equal bilaterally. No cyanosis or clubbing NEUROLOGY: Patient is moving left upper extremity and able to move left foot. Patient unable to move right upper and lower extremity. Procedures Peg Tube placed 05/08/17 (Dr. De Los Santos) Urinary Catheter: No Vascular Central Line Catheter: No A/P Assessment and Plan Intracranial hemorrhage secondary to uncontrolled hypertension and hypertensive emergency Thalamic ICH with intraventricular extension. No surgical intervention per Dr. Wang, Neurology following, ok for discharge to rehab. Continue PT/OT/ST Dysphagia suspect secondary to intracranial bleed Post PEG placement 05/09/17. Pureed diet with honey thickened liquids, Continue encouraging PO intake. Speech therapy to continue to follow and advance diet per exam Dietary consulted and made recommendations for bolus feeding Hypertension emergency, Amlodipine 10 mg daily Lisinopril 40 mg daily Apresoline 100 mg every 6 hours Catapres TTS 3 patch Metoprolol 100 mg twice daily Apresoline, clonidine, Vasotec as needed Febrile illness, low-grade fever, resolved Could be secondary to occult infection or possible neurologic from CVA, hemorrhage CBC, BMP were unremarkable chest x-ray indicated atelectasis versus infiltrate urinalysis was normal blood culture negative for 5 days Completed Levaquin 750 mg daily for 7 days Hyperglycemia Hemoglobin A1c 6.2 Glucerna 1.5 tube feeding Xeroderma on bilateral feet: Lac-Hydrin 12% Lotion continued. GI Prophylaxis: Prevacid via PEG tube DVT Prophylaxis: Sequential compression devices, chemical prophylaxis contraindicated secondary to intracranial hemorrhage Patient's chart was reviewed. Patient examined. No change in treatment plan Discharge Planning Discharge planning per case management Kayden Kelley Jun 10, 2017 12:02
[2017-06-10 20:49] VITALS: BP 160/100; PULSE 86; RESP 12; TEMP 98.8; O2SAT 93
[2017-06-11] MEDS: hydrALAZINE HCL 50 MG TAB PO SCH ×5 (00:40→23:59)
[2017-06-11] MEDS: hydrALAZINE HCL 25 MG TAB PEG PRN ×4 (08:36→19:14)
[2017-06-11] MEDS: LANSOPRAZOLE SOLUTAB 30 MG TAB G-TUBE SCH (08:37)
[2017-06-11] MEDS: DOCUSATE SODIUM 50 MG/SENNA 8.6 MG TAB PO SCH ×2 (08:37→21:39)
[2017-06-11] MEDS: LACTIC ACID (AMMONIUM LACTATE) 12% LOTION 225 GM BTL TOPICAL SCH ×2 (08:37→21:40)
[2017-06-11] MEDS: METOPROLOL TARTRATE 100 MG TAB PO SCH ×2 (08:37→21:39)
[2017-06-11] MEDS: LISINOPRIL 20 MG TAB PO SCH (08:37)
[2017-06-11 10:12] VITALS: BP 160/88; PULSE 91; RESP 16; TEMP 96.8; O2SAT 100
--- NOTE | 2017-06-11 10:16 | HHI.PR ---
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 Patient lying in bed comfortably. Denies any new complaints. Indicates that she is eating well. Objective Vitals Vital Signs Date Time Temp Pulse Resp B/P Pulse Ox O2 Delivery O2 Flow Rate FiO2 06/11/17 10:12 96.8 91 16 160/88 100 06/10/17 20:49 98.8 86 12 160/100 93 06/10/17 10:19 96.4 87 16 164/101 98 I/O 06/10/17 06/10/17 06/10/17 06/11/17 06/11/17 06/11/17 07:00 15:00 23:00 07:00 15:00 23:00 Intake Total 1320 ml Balance 1320 ml Tube Feeding 720 ml Other 600 ml # Voids 2 1 3 # Bowel Movements 0 Result Diagram: 06/07/17 0750 06/07/17 0750 Objective Remarks GENERAL: Well-developed, well-nourished, in no acute distress. Awake, responds minimally with head nods. HEENT: Head is normocephalic without any lesions or masses noted. Facial features are symmetric. Eyes: Conjunctivae were clear. CARDIAC: Regular rhythm, regular rate. S1/S2 are heard. 2 or 6 ejection, no gallops or rubs. LUNGS: Clear to auscultation bilaterally. No wheeze, rhonchi or rales. No use of accessory muscles on inspiration or expiration. ABDOMEN: Soft, nontender. Nondistended. Bowel sounds heard in all 4 quadrants. No organomegaly or masses. Negative rebound, negative guarding, PEG tube noted without any signs of infection EXTREMITIES: No edema, pulses are equal bilaterally. No cyanosis or clubbing NEUROLOGY: Patient is moving left upper extremity and able to move left foot. Patient unable to move right upper and lower extremity. Procedures Peg Tube placed 05/08/17 (Dr. De Los Santos) Urinary Catheter: No Vascular Central Line Catheter: No A/P Assessment and Plan Intracranial hemorrhage secondary to uncontrolled hypertension and hypertensive emergency Thalamic ICH with intraventricular extension. No surgical intervention per Dr. Wang, Neurology following, ok for discharge to rehab. Continue PT/OT/ST Dysphagia suspect secondary to intracranial bleed Post PEG placement 05/09/17. Pureed diet with honey thickened liquids, Continue encouraging PO intake. Speech therapy to continue to follow and advance diet per exam Dietary consulted and made recommendations for bolus feeding Hypertension emergency, Amlodipine 10 mg daily Lisinopril 40 mg daily Apresoline 100 mg every 6 hours Catapres TTS 3 patch Metoprolol 100 mg twice daily Apresoline, clonidine, Vasotec as needed Febrile illness, low-grade fever, resolved Could be secondary to occult infection or possible neurologic from CVA, hemorrhage CBC, BMP were unremarkable chest x-ray indicated atelectasis versus infiltrate urinalysis was normal blood culture negative for 5 days Completed Levaquin 750 mg daily for 7 days Hyperglycemia Hemoglobin A1c 6.2 Glucerna 1.5 bolus tube feeding Xeroderma on bilateral feet: Lac-Hydrin 12% Lotion continued. GI Prophylaxis: Prevacid via PEG tube DVT Prophylaxis: Sequential compression devices, chemical prophylaxis contraindicated secondary to intracranial hemorrhage Patient's chart was reviewed. Patient examined. No change in treatment plan Discharge Planning Discharge planning per case management Kayden Kelley Jun 11, 2017 10:16
[2017-06-11 19:05] VITALS: BP 157/115; PULSE 87; RESP 15; TEMP 98.3; O2SAT 98
[2017-06-11 20:00] VITALS: BP 157/115; PULSE 87; RESP 15; TEMP 98.3; O2SAT 98
[2017-06-11 23:45] VITALS: BP 133/87; PULSE 79; O2SAT 97
[2017-06-12] MEDS: hydrALAZINE HCL 50 MG TAB PO SCH ×3 (05:06→17:34)
[2017-06-12] MEDS: LISINOPRIL 20 MG TAB PO SCH (07:39)
[2017-06-12] MEDS: LANSOPRAZOLE SOLUTAB 30 MG TAB G-TUBE SCH (07:39)
[2017-06-12] MEDS: METOPROLOL TARTRATE 100 MG TAB PO SCH ×2 (07:39→20:37)
[2017-06-12] MEDS: DOCUSATE SODIUM 50 MG/SENNA 8.6 MG TAB PO SCH ×2 (07:39→20:37)
[2017-06-12] MEDS: LACTIC ACID (AMMONIUM LACTATE) 12% LOTION 225 GM BTL TOPICAL SCH ×2 (07:40→20:37)
--- NOTE | 2017-06-12 07:56 | HHI.PR ---
Subjective Remarks Patient seen and examined today for follow-up on intracranial hemorrhage, hemorrhagic CVA. Patient lying in bed, appears be comfortable. Does not indicate any new complaints. Patient remains afebrile. Objective Vitals Vital Signs Date Time Temp Pulse Resp B/P Pulse Ox O2 Delivery O2 Flow Rate FiO2 06/11/17 23:45 79 133/87 97 06/11/17 20:00 98.3 87 15 157/115 98 06/11/17 19:05 98.3 87 15 157/115 98 06/11/17 10:12 96.8 91 16 160/88 100 I/O 06/11/17 06/11/17 06/11/17 06/12/17 06/12/17 06/12/17 06:59 14:59 22:59 06:59 14:59 22:59 Intake Total 120 ml Balance 120 ml Tube Feeding 120 ml # Voids 2 # Bowel Movements 1 Objective Remarks GENERAL: Well-developed, well-nourished, in no acute distress. Awake, responds minimally with head nods. HEENT: Head is normocephalic without any lesions or masses noted. Facial features are symmetric. Eyes: Conjunctivae were clear. CARDIAC: Regular rhythm, regular rate. S1/S2 are heard. 2 or 6 ejection, no gallops or rubs. LUNGS: Clear to auscultation bilaterally. No wheeze, rhonchi or rales. No use of accessory muscles on inspiration or expiration. ABDOMEN: Soft, nontender. Nondistended. Bowel sounds heard in all 4 quadrants. No organomegaly or masses. Negative rebound, negative guarding, PEG tube noted without any signs of infection EXTREMITIES: No edema, pulses are equal bilaterally. No cyanosis or clubbing NEUROLOGY: Patient is moving left upper extremity and able to move left foot. Patient unable to move right upper and lower extremity. Procedures Peg Tube placed 05/08/17 (Dr. De Los Santos) Urinary Catheter: No Vascular Central Line Catheter: No A/P Assessment and Plan Intracranial hemorrhage secondary to uncontrolled hypertension and hypertensive emergency Thalamic ICH with intraventricular extension. No surgical intervention per Dr. Wang, Neurology following, ok for discharge to rehab. Continue PT/OT/ST Dysphagia suspect secondary to intracranial bleed Post PEG placement 05/09/17. Pureed diet with honey thickened liquids, Continue encouraging PO intake. Speech therapy to continue to follow and advance diet per exam Dietary consulted and made recommendations for bolus feeding Hypertension emergency, improved but uncontrolled Discontinue Amlodipine 10 mg daily Start Procardia 60 mg daily Lisinopril 40 mg daily Apresoline 100 mg every 6 hours Catapres TTS 3 patch Metoprolol 100 mg twice daily Apresoline, clonidine, Vasotec as needed Febrile illness, low-grade fever, resolved Could be secondary to occult infection or possible neurologic from CVA, hemorrhage CBC, BMP were unremarkable chest x-ray indicated atelectasis versus infiltrate urinalysis was normal blood culture negative for 5 days Completed Levaquin 750 mg daily for 7 days Hyperglycemia Hemoglobin A1c 6.2 Glucerna 1.5 bolus tube feeding Xeroderma on bilateral feet: Lac-Hydrin 12% Lotion continued. GI Prophylaxis: Prevacid via PEG tube DVT Prophylaxis: Sequential compression devices, chemical prophylaxis contraindicated secondary to intracranial hemorrhage Discharge Planning Discharge planning per case management Kayden Kelley Jun 12, 2017 07:56
[2017-06-12] MEDS: NIFEdipine 60 MG SUSTAINED RELEASE TAB PO SCH (08:13)
[2017-06-12 08:43] VITALS: BP 142/99; PULSE 85; RESP 19; TEMP 98.3; O2SAT 97
[2017-06-12 20:00] VITALS: BP 132/85; PULSE 79; RESP 18; TEMP 99; O2SAT 97
[2017-06-13] MEDS: hydrALAZINE HCL 50 MG TAB PO SCH ×4 (00:14→16:15)
[2017-06-13] MEDS: DOCUSATE SODIUM 50 MG/SENNA 8.6 MG TAB PO SCH ×2 (07:39→21:12)
[2017-06-13] MEDS: NIFEdipine 60 MG SUSTAINED RELEASE TAB PO SCH (07:40)
[2017-06-13] MEDS: LACTIC ACID (AMMONIUM LACTATE) 12% LOTION 225 GM BTL TOPICAL SCH ×2 (07:40→21:12)
[2017-06-13] MEDS: LISINOPRIL 20 MG TAB PO SCH (07:40)
[2017-06-13] MEDS: LANSOPRAZOLE SOLUTAB 30 MG TAB G-TUBE SCH (07:40)
[2017-06-13] MEDS: METOPROLOL TARTRATE 100 MG TAB PO SCH ×2 (07:40→21:11)
[2017-06-13 08:00] VITALS: BP 155/98; PULSE 89; RESP 18; TEMP 98.9; O2SAT 95
--- NOTE | 2017-06-13 11:02 | HHI.PR ---
Subjective Remarks Follow-up for CVA, hypertension. Patient is aphasic and nods to answer questions. Patient denies any fevers or chills, headache, dizziness, blurred vision. Objective Vitals Vital Signs Date Time Temp Pulse Resp B/P Pulse Ox O2 Delivery O2 Flow Rate FiO2 06/12/17 20:00 99.0 79 18 132/85 97 I/O 06/12/17 06/12/17 06/12/17 06/13/17 06/13/17 06/13/17 07:00 15:00 23:00 07:00 15:00 23:00 Intake Total 420 ml Balance 420 ml Tube Feeding 120 ml Tube Irrigant 300 ml # Voids 1 2 1 Objective Remarks GENERAL: Well nourished well-developed patient in no apparent distress. CARDIOVASCULAR: Regular rate and rhythm. RESPIRATORY: No accessory muscle use. Clear to auscultation bilaterally. GASTROINTESTINAL: Abdomen soft, non-tender, nondistended. MUSCULOSKELETAL: R hand swollen. No lower extremity edema bilaterally. NEUROLOGICAL: Awake and alert. Aphasic. Moves L hand. Procedures Peg Tube placed 05/08/17 (Dr. De Los Santos) Urinary Catheter: No Vascular Central Line Catheter: No A/P Assessment and Plan Intracranial hemorrhage secondary to uncontrolled hypertension and hypertensive emergency Thalamic ICH with intraventricular extension. No surgical intervention per Dr. Wang, Neurology following, ok for discharge to rehab. Continue PT/OT/ST Dysphagia suspect secondary to intracranial bleed Post PEG placement 05/09/17. Pureed diet with honey thickened liquids, tsp by tsp. Continue encouraging PO intake. Speech therapy to continue to follow Dietary consulted and made recommendations as below: Jevity 1.5 boluses of 240mls @ 9AM, 1PM, & 6PM and 120mls @ 9PM. Give boluses after meals to allow pt to eat. Flush 30mls water before and after each bolus feeding. Recommend additional 100ml water flush Q 8hrs. Glucerna shakes BID to trays for added hydration. Hypertension emergency: Amlodipine 10 mg daily Lisinopril 40 mg daily Hydralazine 100 mg every 6 hours Catapres TTS 2 patch weekly Metoprolol 100 mg twice daily Nifedipine 60 mg daily started on 06/12. Hydralazine, clonidine, Vasotec as needed BP improving after addition of Nifedipine. Continue to monitor and adjust regimen as needed. Febrile illness: Resolved. Could be secondary to occult infection or possible neurologic from CVA, hemorrhage CBC, BMP unremarkable 05/28 Chest x-ray indicated mild L lung atelectasis versus infiltrate. 05/31 Chest x-ray appears improved from prior; no focal consolidations noted. Urinalysis was normal Blood culture 05/28 NGTD S/p Levaquin 750 mg daily for total of 7 days Hypernatremia and hyperchloremia: Resolved. Likely to related to decreased by mouth intake. -S/p IVF -Monitor BMP periodically. Pre-renal azotemia: Resolved. Likely attributed to poor po intake. -S/p IVF -Continue free water flushes Hyperglycemia Hemoglobin A1c 6.2 Glucerna 1.5 to feeding Xeroderma on bilateral feet: Lac-Hydrin 12% Lotion continued. Oral thrush continued: Fluconazole 200 mg daily for 7 days complete GI Prophylaxis: Prevacid via PEG tube DVT Prophylaxis: SCDs. Chemical prophylaxis contraindicated secondary to intracranial hemorrhage Discharge Planning CM following. Applications for Medicaid submitted. Yuly Shafer Jun 13, 2017 11:02 Yuly Shafer Jun 13, 2017 11:02
[2017-06-13] MEDS: REMOVE OLD CATAPRES (CLONIDINE) PATCH T-DERMAL SCH (15:00)
[2017-06-13] MEDS: cloNIDine HCL 0.3 MG/24 HR PATCH T-DERMAL SCH (16:15)
[2017-06-13 20:00] VITALS: BP 148/97; PULSE 84; RESP 20; TEMP 98.3; O2SAT 99
[2017-06-14] MEDS: hydrALAZINE HCL 50 MG TAB PO SCH ×4 (00:12→17:21)
[2017-06-14] MEDS: LISINOPRIL 20 MG TAB PO SCH (07:46)
[2017-06-14] MEDS: NIFEdipine 60 MG SUSTAINED RELEASE TAB PO SCH (07:46)
[2017-06-14] MEDS: LACTIC ACID (AMMONIUM LACTATE) 12% LOTION 225 GM BTL TOPICAL SCH ×2 (07:46→20:45)
[2017-06-14] MEDS: DOCUSATE SODIUM 50 MG/SENNA 8.6 MG TAB PO SCH ×2 (07:46→20:44)
[2017-06-14] MEDS: METOPROLOL TARTRATE 100 MG TAB PO SCH ×2 (07:46→20:44)
[2017-06-14] MEDS: LANSOPRAZOLE SOLUTAB 30 MG TAB G-TUBE SCH (07:46)
[2017-06-14 08:00] VITALS: BP 149/102; PULSE 76; RESP 18; TEMP 98.5; O2SAT 96
--- NOTE | 2017-06-14 11:55 | HHI.PR ---
Subjective Remarks Follow-up for CVA, hypertension. Patient is aphasic and nods to answer questions. Denies any headache or dizziness. Objective Vitals Vital Signs Date Time Temp Pulse Resp B/P Pulse Ox O2 Delivery O2 Flow Rate FiO2 06/13/17 20:00 98.3 84 20 148/97 99 I/O 06/13/17 06/13/17 06/13/17 06/14/17 06/14/17 06/14/17 06:59 14:59 22:59 06:59 14:59 22:59 Intake Total 80 ml 480 ml Balance 80 ml 480 ml Intake Oral 80 ml 240 ml IV Total 0 ml Tube Feeding 120 ml Other 120 ml # Voids 2 1 1 2 # Bowel Movements 0 1 Objective Remarks GENERAL: Well nourished well-developed patient in no apparent distress. CARDIOVASCULAR: Regular rate and rhythm. Murmur over aortic region. RESPIRATORY: No accessory muscle use. Clear to auscultation bilaterally, but does not take deep breaths. GASTROINTESTINAL: Abdomen soft, non-tender, nondistended. MUSCULOSKELETAL: R hand swollen. NEUROLOGICAL: Awake and alert. Aphasic. 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 Procedures Peg Tube placed 05/08/17 (Dr. De Los Santos) Urinary Catheter: No Vascular Central Line Catheter: No A/P Assessment and Plan Intracranial hemorrhage secondary to uncontrolled hypertension and hypertensive emergency Thalamic ICH with intraventricular extension. No surgical intervention per Dr. Wang, Neurology following, ok for discharge to rehab. Continue PT/OT/ST Dysphagia suspect secondary to intracranial bleed Post PEG placement 05/09/17. Pureed diet with honey thickened liquids, tsp by tsp. Continue encouraging PO intake. Speech therapy to continue to follow Dietary consulted and made recommendations as below: Jevity 1.5 boluses of 240mls @ 9AM, 1PM, & 6PM and 120mls @ 9PM. Give boluses after meals to allow pt to eat. Flush 30mls water before and after each bolus feeding. Recommend additional 100ml water flush Q 8hrs. Glucerna shakes BID to trays for added hydration. Hypertension emergency: Amlodipine 10 mg daily Lisinopril 40 mg daily Hydralazine 100 mg every 6 hours Catapres TTS 2 patch weekly Metoprolol 100 mg twice daily Nifedipine 60 mg daily started on 06/12. Hydralazine, clonidine, Vasotec as needed BP elevated this morning, but Nifedipine was just recently started. Continue to monitor and adjust regimen as needed. Febrile illness: Resolved. Could be secondary to occult infection or possible neurologic from CVA, hemorrhage CBC, BMP unremarkable 05/28 Chest x-ray indicated mild L lung atelectasis versus infiltrate. 05/31 Chest x-ray appears improved from prior; no focal consolidations noted. Urinalysis was normal Blood culture 05/28 NGTD S/p Levaquin 750 mg daily for total of 7 days Hypernatremia and hyperchloremia: Resolved. Likely to related to decreased by mouth intake. -S/p IVF -Monitor BMP periodically. Pre-renal azotemia: Resolved. Likely attributed to poor po intake. -S/p IVF -Continue free water flushes Hyperglycemia Hemoglobin A1c 6.2 Glucerna 1.5 to feeding Xeroderma on bilateral feet: Lac-Hydrin 12% Lotion continued. Oral thrush continued: Fluconazole 200 mg daily for 7 days complete GI Prophylaxis: Prevacid via PEG tube DVT Prophylaxis: SCDs. Chemical prophylaxis contraindicated secondary to intracranial hemorrhage Discharge Planning CM following. Applications for Medicaid submitted. Yuly Shafer Jun 14, 2017 11:55
[2017-06-14 20:00] VITALS: BP 141/91; PULSE 86; RESP 24; TEMP 98.6; O2SAT 95
[2017-06-15] MEDS: hydrALAZINE HCL 50 MG TAB PO SCH ×5 (00:10→23:13)
[2017-06-15 08:00] VITALS: BP 131/77; PULSE 89; RESP 20; TEMP 98.4; O2SAT 99
[2017-06-15] MEDS: NIFEdipine 60 MG SUSTAINED RELEASE TAB PO SCH (10:04)
[2017-06-15] MEDS: METOPROLOL TARTRATE 100 MG TAB PO SCH ×2 (10:04→20:53)
[2017-06-15] MEDS: DOCUSATE SODIUM 50 MG/SENNA 8.6 MG TAB PO SCH ×2 (10:05→20:53)
[2017-06-15] MEDS: LANSOPRAZOLE SOLUTAB 30 MG TAB G-TUBE SCH (10:05)
[2017-06-15] MEDS: LISINOPRIL 20 MG TAB PO SCH (10:05)
[2017-06-15] MEDS: LACTIC ACID (AMMONIUM LACTATE) 12% LOTION 225 GM BTL TOPICAL SCH ×2 (10:05→20:53)
--- NOTE | 2017-06-15 10:28 | HHI.PR ---
Subjective Remarks Follow-up for hemorrhagic CVA, hypertension. Patient slightly nods to answer questions. Denies any headache. Objective Vitals Vital Signs Date Time Temp Pulse Resp B/P Pulse Ox O2 Delivery O2 Flow Rate FiO2 06/15/17 08:00 98.4 89 20 131/77 99 06/14/17 20:00 98.6 86 24 141/91 95 I/O 06/14/17 06/14/17 06/14/17 06/15/17 06/15/17 06/15/17 07:00 15:00 23:00 07:00 15:00 23:00 Intake Total 480 ml 1100 ml Balance 480 ml 1100 ml Intake Oral 240 ml IV Total 0 ml Tube Feeding 120 ml 720 ml Other 120 ml 380 ml # Voids 2 1 # Bowel Movements 1 0 Objective Remarks GENERAL: Well nourished well-developed patient in no apparent distress. CARDIOVASCULAR: Regular rate and rhythm. 2/6 murmur LLSB. RESPIRATORY: No accessory muscle use. Clear to auscultation bilaterally, but does not take deep breaths on command. GASTROINTESTINAL: Abdomen soft, non-tender, nondistended. MUSCULOSKELETAL: No lower extremity edema bilaterally. NEUROLOGICAL: Awake and alert. Aphasic. 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 Procedures Peg Tube placed 05/08/17 (Dr. De Los Santos) Urinary Catheter: No Vascular Central Line Catheter: No A/P Assessment and Plan Intracranial hemorrhage secondary to uncontrolled hypertension and hypertensive emergency Thalamic ICH with intraventricular extension. No surgical intervention per Dr. Wang, Neurology following, ok for discharge to rehab. Continue PT/OT/ST Dysphagia suspect secondary to intracranial bleed Post PEG placement 05/09/17. Patient initially pureed diet with honey thickened liquids, tsp by tsp, but reevaluated by speech therapy on 06/14 and made NPO as she had clinical symptoms of aspiration with all consistencies. Dietary following with recommendations as below: Jevity 1.5 boluses of 240mls @ 9AM, 1PM, & 6PM and 120mls @ 9PM. Flush 30mls water before and after each bolus feeding. Additional 100ml free water flush q6hrs. Hypertension emergency: Amlodipine 10 mg daily Lisinopril 40 mg daily Hydralazine 100 mg every 6 hours Catapres TTS 2 patch weekly Metoprolol 100 mg twice daily Nifedipine 60 mg daily started on 06/12. Hydralazine, clonidine, Vasotec as needed 06/15: BP improved this morning. Continue to monitor and adjust regimen as needed. Febrile illness: Resolved. Could be secondary to occult infection or possible neurologic from CVA, hemorrhage CBC, BMP unremarkable 05/28 Chest x-ray indicated mild L lung atelectasis versus infiltrate. 05/31 Chest x-ray appears improved from prior; no focal consolidations noted. Urinalysis was normal Blood culture 05/28 NGTD S/p Levaquin 750 mg daily for total of 7 days Hypernatremia and hyperchloremia: Resolved. Likely to related to decreased by mouth intake. -S/p IVF -Monitor BMP periodically. Pre-renal azotemia: Resolved. Likely attributed to poor po intake. -S/p IVF -Continue free water flushes Hyperglycemia Hemoglobin A1c 6.2 Glucerna 1.5 for feeding Xeroderma on bilateral feet: Lac-Hydrin 12% Lotion continued. Oral thrush continued: Fluconazole 200 mg daily for 7 days complete GI Prophylaxis: Prevacid via PEG tube DVT Prophylaxis: SCDs. Chemical prophylaxis contraindicated secondary to intracranial hemorrhage Discharge Planning CM following. Applications for Medicaid submitted. Yuly Shafer Jun 15, 2017 10:28
[2017-06-15 20:00] VITALS: BP 136/92; PULSE 90; RESP 20; TEMP 98; O2SAT 98
[2017-06-16] MEDS: hydrALAZINE HCL 50 MG TAB PO SCH (06:20)
[2017-06-16 08:00] VITALS: BP 145/74; PULSE 84; RESP 18; TEMP 98.1; O2SAT 99
[2017-06-16] MEDS: NIFEdipine 60 MG SUSTAINED RELEASE TAB PO SCH (09:20)
[2017-06-16] MEDS: LISINOPRIL 20 MG TAB PO SCH (09:20)
[2017-06-16] MEDS: LACTIC ACID (AMMONIUM LACTATE) 12% LOTION 225 GM BTL TOPICAL SCH ×2 (09:20→21:45)
[2017-06-16] MEDS: LANSOPRAZOLE SOLUTAB 30 MG TAB G-TUBE SCH (09:20)
[2017-06-16] MEDS: METOPROLOL TARTRATE 100 MG TAB PO SCH (09:20)
[2017-06-16] MEDS: DOCUSATE SODIUM 50 MG/SENNA 8.6 MG TAB PO SCH (09:20)
[2017-06-16] MEDS ORDERED: LACTULOSE SYRUP 20 GM/30 ML CUP PEG PRN (10:00)
[2017-06-16] MEDS: hydrALAZINE HCL 50 MG TAB PEG SCH ×2 (12:46→17:46)
--- NOTE | 2017-06-16 13:00 | HHI.PR ---
Subjective Remarks Follow up for hemorrhagic CVA, hypertension. Denies any ARELLANO. Objective Vitals Vital Signs Date Time Temp Pulse Resp B/P Pulse Ox O2 Delivery O2 Flow Rate FiO2 06/16/17 08:00 98.1 84 18 145/74 99 06/15/17 20:00 98.0 90 20 136/92 98 I/O 06/15/17 06/15/17 06/15/17 06/16/17 06/16/17 06/16/17 07:00 15:00 23:00 07:00 15:00 23:00 Intake Total 0 ml 1100 ml 320 ml Balance 0 ml 1100 ml 320 ml Intake Oral 0 ml Tube Feeding 720 ml 120 ml Other 380 ml 200 ml # Voids 2 1 1 # Bowel Movements 0 1 1 Objective Remarks GENERAL: Well nourished well-developed patient in no apparent distress. CARDIOVASCULAR: Regular rate and rhythm. 2/6 murmur. RESPIRATORY: No accessory muscle use. Clear to auscultation bilaterally, but decreased breath sounds as patient does not follow command to take deep breaths. GASTROINTESTINAL: Abdomen soft, non-tender, nondistended. NEUROLOGICAL: Awake and alert. Aphasic. 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 Procedures Peg Tube placed 05/08/17 (Dr. De Los Santos) Urinary Catheter: No Vascular Central Line Catheter: No A/P Assessment and Plan Intracranial hemorrhage secondary to uncontrolled hypertension and hypertensive emergency Thalamic ICH with intraventricular extension. No surgical intervention per Dr. Wang, Neurology following, ok for discharge to rehab. Continue PT/OT/ST Dysphagia suspect secondary to intracranial bleed Post PEG placement 05/09/17. Patient initially pureed diet with honey thickened liquids, tsp by tsp, but reevaluated by speech therapy on 06/14 and made NPO as she had clinical symptoms of aspiration with all consistencies. Dietary following with recommendations as below: Jevity 1.5 boluses of 240mls @ 9AM, 1PM, & 6PM and 120mls @ 9PM. Flush 30mls water before and after each bolus feeding. Additional 100ml free water flush q6hrs. Hypertension emergency: Amlodipine 10 mg daily Lisinopril 40 mg daily Hydralazine 100 mg every 6 hours Catapres TTS 2 patch weekly Metoprolol 100 mg twice daily Nifedipine 60 mg daily started on 06/12. Hydralazine, clonidine, Vasotec as needed 06/16: SBP < 150. Patient now NPO and Procardia XL cannot be crushed. Spoke with pharmacist. This has been changed to Procardia 20 mg q8h which are capsules with liquid. Febrile illness: Resolved. Could be secondary to occult infection or possible neurologic from CVA, hemorrhage CBC, BMP unremarkable 05/28 Chest x-ray indicated mild L lung atelectasis versus infiltrate. 05/31 Chest x-ray appears improved from prior; no focal consolidations noted. Urinalysis was normal Blood culture 05/28 NGTD S/p Levaquin 750 mg daily for total of 7 days Hypernatremia and hyperchloremia: Resolved. Likely to related to decreased by mouth intake. -S/p IVF -Monitor BMP periodically. Pre-renal azotemia: Resolved. Likely attributed to poor po intake. -S/p IVF -Continue free water flushes Hyperglycemia Hemoglobin A1c 6.2 Glucerna 1.5 for feeding Xeroderma on bilateral feet: Lac-Hydrin 12% Lotion continued. Oral thrush continued: Fluconazole 200 mg daily for 7 days complete GI Prophylaxis: Prevacid via PEG tube DVT Prophylaxis: SCDs. Chemical prophylaxis contraindicated secondary to intracranial hemorrhage Discharge Planning CM following. Applications for Medicaid submitted. Yuly Shafer Jun 16, 2017 12:59
[2017-06-16] MEDS: NIFEdipine 20 MG CAP PEG SCH ×2 (15:27→21:45)
[2017-06-16 20:00] VITALS: BP 129/85; PULSE 68; RESP 20; TEMP 98.5; O2SAT 99
[2017-06-16] MEDS: METOPROLOL TARTRATE 100 MG TAB PEG SCH (21:45)
[2017-06-16] MEDS: DOCUSATE SODIUM 50 MG/SENNA 8.6 MG TAB PEG SCH (21:45)
[2017-06-17] MEDS: hydrALAZINE HCL 50 MG TAB PEG SCH ×4 (00:01→17:41)
[2017-06-17] MEDS: NIFEdipine 20 MG CAP PEG SCH ×3 (06:04→21:21)
[2017-06-17 08:00] VITALS: BP 133/79; PULSE 75; RESP 18; TEMP 99.7; O2SAT 96
[2017-06-17] MEDS: DOCUSATE SODIUM 50 MG/SENNA 8.6 MG TAB PEG SCH ×2 (08:55→21:21)
[2017-06-17] MEDS: LISINOPRIL 20 MG TAB PEG SCH (08:55)
[2017-06-17] MEDS: LANSOPRAZOLE SOLUTAB 30 MG TAB G-TUBE SCH (08:55)
[2017-06-17] MEDS: METOPROLOL TARTRATE 100 MG TAB PEG SCH ×2 (08:55→21:21)
[2017-06-17] MEDS: LACTIC ACID (AMMONIUM LACTATE) 12% LOTION 225 GM BTL TOPICAL SCH ×2 (08:56→21:22)
--- NOTE | 2017-06-17 12:22 | HHI.PR ---
Subjective Remarks Follow-up for hemorrhagic CVA, hypertension. Patient has no acute complaints. Objective Vitals Vital Signs Date Time Temp Pulse Resp B/P Pulse Ox O2 Delivery O2 Flow Rate FiO2 06/17/17 08:00 99.7 75 18 133/79 96 06/16/17 20:00 98.5 68 20 129/85 99 I/O 06/16/17 06/16/17 06/16/17 06/17/17 06/17/17 06/17/17 06:59 14:59 22:59 06:59 14:59 22:59 Intake Total 320 ml 700 ml 400 ml 0 ml Balance 320 ml 700 ml 400 ml 0 ml Intake Oral 0 ml 0 ml Tube Feeding 120 ml 480 ml 240 ml Tube Irrigant 120 ml 60 ml Other 200 ml 100 ml 100 ml # Voids 1 2 1 1 # Bowel Movements 1 1 Objective Remarks GENERAL: Well nourished well-developed patient in no apparent distress. CARDIOVASCULAR: Regular rate and rhythm. 2/6 murmur. RESPIRATORY: No accessory muscle use. Clear to auscultation bilaterally. GASTROINTESTINAL: Abdomen soft, non-tender, nondistended. MUSCULOSKELETAL: No lower extremity edema bilaterally. NEUROLOGICAL: Awake and alert. Aphasic. 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 Procedures Peg Tube placed 05/08/17 (Dr. De Los Santos) Urinary Catheter: No Vascular Central Line Catheter: No A/P Assessment and Plan Intracranial hemorrhage secondary to uncontrolled hypertension and hypertensive emergency Thalamic ICH with intraventricular extension. No surgical intervention per Dr. Wang. Neurology following, ok for discharge to rehab. Continue PT/OT/ST Dysphagia suspect secondary to intracranial bleed Post PEG placement 05/09/17. Patient initially pureed diet with honey thickened liquids, tsp by tsp, but reevaluated by speech therapy on 06/14 and made NPO as she had clinical symptoms of aspiration with all consistencies. Dietary following with recommendations as below: Jevity 1.5 boluses of 240mls @ 9AM, 1PM, & 6PM and 120mls @ 9PM. Flush 30mls water before and after each bolus feeding. Additional 100ml free water flush q6hrs. Hypertension emergency/HTN: HTN Improving Amlodipine 10 mg daily Lisinopril 40 mg daily Hydralazine 100 mg every 6 hours Catapres TTS 2 patch weekly Metoprolol 100 mg twice daily Nifedipine 20 mg q8h Hydralazine, clonidine, Vasotec as needed 06/17: BP improved since switching from Procardia XL 60 mg once daily to Procardia 20 mg q8h due to NPO status. Continue to monitor and adjust regimen as needed. Febrile illness: Resolved. Could be secondary to occult infection or possible neurologic from CVA, hemorrhage CBC, BMP unremarkable 05/28 Chest x-ray indicated mild L lung atelectasis versus infiltrate. 05/31 Chest x-ray appears improved from prior; no focal consolidations noted. Urinalysis was normal Blood culture 05/28 NGTD S/p Levaquin 750 mg daily for total of 7 days Hypernatremia and hyperchloremia: Resolved. Likely to related to decreased by mouth intake. -S/p IVF -Monitor BMP periodically. Pre-renal azotemia: Resolved. Likely attributed to poor po intake. -S/p IVF -Continue free water flushes Hyperglycemia Hemoglobin A1c 6.2 Glucerna 1.5 for feeding Xeroderma on bilateral feet: Lac-Hydrin 12% Lotion continued. Oral thrush continued: Fluconazole 200 mg daily for 7 days complete GI Prophylaxis: Prevacid via PEG tube DVT Prophylaxis: SCDs. Chemical prophylaxis contraindicated secondary to intracranial hemorrhage Discharge Planning CM following. Applications for Medicaid submitted. Yuly Shafer Jun 17, 2017 12:22
[2017-06-17 17:40] VITALS: BP 136/96
[2017-06-17 20:00] VITALS: BP 151/92; PULSE 78; RESP 18; TEMP 98.1; O2SAT 95
[2017-06-18] MEDS: hydrALAZINE HCL 50 MG TAB PEG SCH ×4 (00:31→18:02)
[2017-06-18] MEDS: NIFEdipine 20 MG CAP PEG SCH ×4 (06:06→21:41)
[2017-06-18] MEDS: LANSOPRAZOLE SOLUTAB 30 MG TAB G-TUBE SCH (07:48)
[2017-06-18] MEDS: DOCUSATE SODIUM 50 MG/SENNA 8.6 MG TAB PEG SCH ×2 (07:48→21:41)
[2017-06-18] MEDS: METOPROLOL TARTRATE 100 MG TAB PEG SCH ×2 (07:48→21:41)
[2017-06-18] MEDS: LISINOPRIL 20 MG TAB PEG SCH (07:48)
[2017-06-18] MEDS: LACTIC ACID (AMMONIUM LACTATE) 12% LOTION 225 GM BTL TOPICAL SCH ×2 (07:53→21:42)
[2017-06-18 08:00] VITALS: BP 161/98; PULSE 85; RESP 18; TEMP 97.7; O2SAT 99
--- NOTE | 2017-06-18 10:19 | HHI.PR ---
Subjective Remarks Follow-up for hemorrhagic CVA, hypertension. Patient denies any acute complaints. Objective Vitals Vital Signs Date Time Temp Pulse Resp B/P Pulse Ox O2 Delivery O2 Flow Rate FiO2 06/18/17 08:00 97.7 85 18 161/98 99 06/17/17 20:00 98.1 78 18 151/92 95 06/17/17 17:40 136/96 I/O 06/17/17 06/17/17 06/17/17 06/18/17 06/18/17 06/18/17 06:59 14:59 22:59 06:59 14:59 22:59 Intake Total 0 ml 800 ml 300 ml 0 ml Balance 0 ml 800 ml 300 ml 0 ml Intake Oral 0 ml 0 ml Tube Feeding 480 ml 240 ml Tube Irrigant 120 ml 60 ml Other 200 ml # Voids 1 3 # Bowel Movements 1 Objective Remarks GENERAL: Well nourished well-developed patient in no apparent distress. CARDIOVASCULAR: Regular rate and rhythm. 2/6 murmur. RESPIRATORY: No accessory muscle use. Clear to auscultation bilaterally. GASTROINTESTINAL: Abdomen soft, non-tender, nondistended. MUSCULOSKELETAL: Swelling of right hand and forearm, same; brace in place. 2+ right distal radial pulse. NEUROLOGICAL: Awake and alert. Aphasic. 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 Procedures Peg Tube placed 05/08/17 (Dr. De Los Santos) Urinary Catheter: No Vascular Central Line Catheter: No A/P Assessment and Plan Intracranial hemorrhage secondary to uncontrolled hypertension and hypertensive emergency Thalamic ICH with intraventricular extension. No surgical intervention per Dr. Wang. Neurology following, ok for discharge to rehab. Continue PT/OT/ST Dysphagia suspect secondary to intracranial bleed Post PEG placement 05/09/17. Patient initially pureed diet with honey thickened liquids, tsp by tsp, but reevaluated by speech therapy on 06/14 and made NPO as she had clinical symptoms of aspiration with all consistencies. Dietary following with recommendations as below: Jevity 1.5 boluses of 240mls @ 9AM, 1PM, & 6PM and 120mls @ 9PM. Flush 30mls water before and after each bolus feeding. Additional 100ml free water flush q6hrs. Hypertension emergency/HTN: Worse Amlodipine 10 mg daily Lisinopril 40 mg daily Hydralazine 100 mg every 6 hours Catapres 0.3 mg patch weekly Metoprolol 100 mg twice daily Nifedipine 20 mg q8h Hydralazine prn for SBP >150. 06/18: BP initially improved after switching from Procardia XL 60 mg once daily to Procardia 20 mg q8h due to NPO status, but BP again elevated at 161/98 at 0800 only 10 minutes after morning meds were administered though. Delay in getting noon dose of Nifedipine today. Nurse rechecked BP 1 hour after patient received this and BP now normal at 127/83. Continue with current regimen. Monitor and adjust as needed. Febrile illness: Resolved. Could be secondary to occult infection or possible neurologic from CVA, hemorrhage CBC, BMP unremarkable 05/28 Chest x-ray indicated mild L lung atelectasis versus infiltrate. 05/31 Chest x-ray appears improved from prior; no focal consolidations noted. Urinalysis was normal Blood culture 05/28 NGTD S/p Levaquin 750 mg daily for total of 7 days Hypernatremia and hyperchloremia: Resolved. Likely to related to decreased by mouth intake. -S/p IVF -Monitor BMP periodically. Pre-renal azotemia: Resolved. Likely attributed to poor po intake. -S/p IVF -Continue free water flushes Hyperglycemia Hemoglobin A1c 6.2 Glucerna 1.5 for feeding Xeroderma on bilateral feet: Lac-Hydrin 12% Lotion continued. Oral thrush continued: Fluconazole 200 mg daily for 7 days complete GI Prophylaxis: Prevacid via PEG tube DVT Prophylaxis: SCDs. Chemical prophylaxis contraindicated secondary to intracranial hemorrhage Discharge Planning CM following. Applications for Medicaid submitted. Yuly Shafer Jun 18, 2017 10:18
[2017-06-18 15:03] VITALS: BP 127/83; PULSE 71; RESP 12; O2SAT 98
[2017-06-18 20:00] VITALS: BP 177/102; PULSE 75; RESP 16; TEMP 97.4; O2SAT 99
[2017-06-19] MEDS: hydrALAZINE HCL 50 MG TAB PEG SCH ×5 (00:05→23:16)
[2017-06-19] MEDS: NIFEdipine 20 MG CAP PEG SCH ×3 (06:06→21:43)
[2017-06-19 08:00] VITALS: BP 118/88; PULSE 78; RESP 17; TEMP 98.2; O2SAT 95
[2017-06-19] MEDS: LISINOPRIL 20 MG TAB PEG SCH (08:59)
[2017-06-19] MEDS: LANSOPRAZOLE SOLUTAB 30 MG TAB G-TUBE SCH (08:59)
[2017-06-19] MEDS: LACTIC ACID (AMMONIUM LACTATE) 12% LOTION 225 GM BTL TOPICAL SCH ×2 (08:59→21:43)
[2017-06-19] MEDS: METOPROLOL TARTRATE 100 MG TAB PEG SCH ×2 (08:59→21:42)
[2017-06-19] MEDS: DOCUSATE SODIUM 50 MG/SENNA 8.6 MG TAB PEG SCH ×2 (08:59→21:42)
--- NOTE | 2017-06-19 10:22 | HHI.PR ---
Subjective Remarks Follow-up for hemorrhagic CVA, hypertension. Objective Vitals Vital Signs Date Time Temp Pulse Resp B/P Pulse Ox O2 Delivery O2 Flow Rate FiO2 06/19/17 08:00 98.2 78 17 118/88 95 06/18/17 20:00 97.4 75 16 177/102 99 06/18/17 15:03 71 12 127/83 98 I/O 06/18/17 06/18/17 06/18/17 06/19/17 06/19/17 06/19/17 07:00 15:00 23:00 07:00 15:00 23:00 Intake Total 0 ml 100 ml 1340 ml Output Total 2 ml Balance 0 ml 100 ml 1338 ml Intake Oral 0 ml 100 ml Tube Feeding 840 ml Tube Irrigant 500 ml Output Urine Total 1 ml Stool Total 1 ml # Voids 3 3 # Bowel Movements 1 Objective Remarks GENERAL: Well nourished well-developed patient in no apparent distress. CARDIOVASCULAR: Regular rate and rhythm. Murmur LLSB. RESPIRATORY: No accessory muscle use. Clear to auscultation bilaterally. GASTROINTESTINAL: Abdomen soft, non-tender, nondistended. MUSCULOSKELETAL: Pitting edema of right hand and forearm, same; brace in place. 2+ right distal radial pulse. NEUROLOGICAL: Awake and alert. Aphasic. 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 Procedures Peg Tube placed 05/08/17 (Dr. De Los Santos) Urinary Catheter: No Vascular Central Line Catheter: No A/P Assessment and Plan Intracranial hemorrhage secondary to uncontrolled hypertension and hypertensive emergency Thalamic ICH with intraventricular extension. No surgical intervention per Dr. Wang. Neurology following, ok for discharge to rehab. Continue PT/OT/ST Dysphagia suspect secondary to intracranial bleed Post PEG placement 05/09/17. Patient initially pureed diet with honey thickened liquids, tsp by tsp, but reevaluated by speech therapy on 06/14 and made NPO as she had clinical symptoms of aspiration with all consistencies. Dietary following with recommendations as below: Jevity 1.5 boluses of 240mls @ 9AM, 1PM, & 6PM and 120mls @ 9PM. Flush 30mls water before and after each bolus feeding. Additional 100ml free water flush q6hrs. Hypertension emergency/HTN: Stable Amlodipine 10 mg daily Lisinopril 40 mg daily Hydralazine 100 mg every 6 hours Catapres 0.3 mg patch weekly Metoprolol 100 mg twice daily Nifedipine 20 mg q8h Hydralazine prn for SBP >150. 06/19: BP was elevated 177/102 at 2000 hrs. and patient was not given prn med; she was given her scheduled medications almost 2 hours later. I have informed the nurse that there is a prn medication available and needs to be given if SBP >150. BP normal today. Continue with current regimen. Febrile illness: Resolved. Could be secondary to occult infection or possible neurologic from CVA, hemorrhage CBC, BMP unremarkable 05/28 Chest x-ray indicated mild L lung atelectasis versus infiltrate. 05/31 Chest x-ray appears improved from prior; no focal consolidations noted. Urinalysis was normal Blood culture 05/28 NGTD S/p Levaquin 750 mg daily for total of 7 days Hypernatremia and hyperchloremia: Resolved. Likely to related to decreased by mouth intake. -S/p IVF -Monitor BMP periodically. Pre-renal azotemia: Resolved. Likely attributed to poor po intake. -S/p IVF -Continue free water flushes Hyperglycemia Hemoglobin A1c 6.2 Glucerna 1.5 for feeding Xeroderma on bilateral feet: Lac-Hydrin 12% Lotion continued. Oral thrush continued: Fluconazole 200 mg daily for 7 days complete GI Prophylaxis: Prevacid via PEG tube DVT Prophylaxis: SCDs. Chemical prophylaxis contraindicated secondary to intracranial hemorrhage Discharge Planning CM following. Applications for Medicaid submitted. Yuly Shafer Jun 19, 2017 10:22
[2017-06-19 11:45] VITALS: BP 122/85; PULSE 60; RESP 16
[2017-06-19 14:09] VITALS: BP 132/95; PULSE 62; RESP 18
[2017-06-19 15:50] VITALS: BP 151/94; PULSE 74; RESP 18
[2017-06-19] MEDS: hydrALAZINE HCL 25 MG TAB PEG PRN (16:16)
[2017-06-19 17:49] VITALS: BP 150/98; PULSE 71; RESP 18; TEMP 98.1; O2SAT 98
[2017-06-19 20:00] VITALS: BP 142/93; PULSE 77; RESP 16; TEMP 99; O2SAT 98
[2017-06-20] MEDS: NIFEdipine 20 MG CAP PEG SCH (05:41)
[2017-06-20] MEDS: hydrALAZINE HCL 50 MG TAB PEG SCH ×3 (05:46→18:27)
[2017-06-20 09:19] VITALS: BP 153/103; PULSE 94; RESP 20; TEMP 96.1; O2SAT 98
[2017-06-20] MEDS: LANSOPRAZOLE SOLUTAB 30 MG TAB G-TUBE SCH (09:23)
[2017-06-20] MEDS: DOCUSATE SODIUM 50 MG/SENNA 8.6 MG TAB PEG SCH ×2 (09:23→20:38)
[2017-06-20] MEDS: METOPROLOL TARTRATE 100 MG TAB PEG SCH ×2 (09:23→20:38)
[2017-06-20] MEDS: LISINOPRIL 20 MG TAB PEG SCH (09:23)
[2017-06-20] MEDS: LACTIC ACID (AMMONIUM LACTATE) 12% LOTION 225 GM BTL TOPICAL SCH ×2 (09:24→20:38)
[2017-06-20 09:30] VITALS: PULSE 84
--- NOTE | 2017-06-20 14:36 | HHI.PR ---
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 Patient lying in bed comfortable. Denies any new complaints. Daughter and son are at bedside. Objective Vitals Vital Signs Date Time Temp Pulse Resp B/P Pulse Ox O2 Delivery O2 Flow Rate FiO2 06/20/17 09:19 96.1 94 20 153/103 98 06/19/17 20:00 99.0 77 16 142/93 98 06/19/17 17:49 98.1 71 18 150/98 98 06/19/17 15:50 74 18 151/94 I/O 06/19/17 06/19/17 06/19/17 06/20/17 06/20/17 06/20/17 07:00 15:00 23:00 07:00 15:00 23:00 Intake Total 800 ml 300 ml 300 ml Output Total 3 ml Balance 797 ml 300 ml 300 ml Intake Oral 0 ml Tube Feeding 480 ml 240 ml 120 ml Tube Irrigant 320 ml 60 ml 120 ml Other 60 ml Output Urine Total 3 ml Stool Total 0 ml # Voids 2 Objective Remarks GENERAL: Well-developed, well-nourished, in no acute distress. Awake, responds minimally with head nods. HEENT: Head is normocephalic without any lesions or masses noted. Facial features are symmetric. Eyes: Conjunctivae were clear. CARDIAC: Regular rhythm, regular rate. S1/S2 are heard. 2 or 6 ejection, no gallops or rubs. LUNGS: Clear to auscultation bilaterally. No wheeze, rhonchi or rales. No use of accessory muscles on inspiration or expiration. ABDOMEN: Soft, nontender. Nondistended. Bowel sounds heard in all 4 quadrants. No organomegaly or masses. Negative rebound, negative guarding, PEG tube noted without any signs of infection EXTREMITIES: No edema, pulses are equal bilaterally. No cyanosis or clubbing NEUROLOGY: Patient is moving left upper extremity and able to move left foot. Patient unable to move right upper and lower extremity. Procedures Peg Tube placed 05/08/17 (Dr. De Los Santos) Urinary Catheter: No Vascular Central Line Catheter: No A/P Assessment and Plan Intracranial hemorrhage secondary to uncontrolled hypertension and hypertensive emergency Thalamic ICH with intraventricular extension. No surgical intervention per Dr. Wang, Neurology following, ok for discharge to rehab. Continue PT/OT/ST Dysphagia suspect secondary to intracranial bleed Post PEG placement 05/09/17. Speech therapy was recommended patient be nothing by mouth Speech therapy to continue to follow and advance diet per exam Dietary consulted and made recommendations for bolus feeding Hypertension emergency, improved but uncontrolled Nifedipine 30 mg every 8 hours Lisinopril 40 mg daily Apresoline 100 mg every 6 hours Catapres TTS 3 patch Metoprolol 100 mg twice daily Apresoline, clonidine, Vasotec as needed Febrile illness, low-grade fever, resolved Could be secondary to occult infection or possible neurologic from CVA, hemorrhage CBC, BMP were unremarkable chest x-ray indicated atelectasis versus infiltrate urinalysis was normal blood culture negative for 5 days Completed Levaquin 750 mg daily for 7 days Hyperglycemia Hemoglobin A1c 6.2 Glucerna 1.5 bolus tube feeding Xeroderma on bilateral feet: Lac-Hydrin 12% Lotion continued. GI Prophylaxis: Prevacid via PEG tube DVT Prophylaxis: Sequential compression devices, chemical prophylaxis contraindicated secondary to intracranial hemorrhage Discharge Planning Discharge planning per case management Kayden Kelley Jun 20, 2017 14:36
[2017-06-20 14:51] VITALS: BP 119/94; PULSE 75
[2017-06-20] MEDS: cloNIDine HCL 0.3 MG/24 HR PATCH T-DERMAL SCH (14:56)
[2017-06-20] MEDS: REMOVE OLD CATAPRES (CLONIDINE) PATCH T-DERMAL SCH (14:57)
[2017-06-20 20:00] VITALS: BP 152/91; PULSE 98; RESP 24; TEMP 98.8; O2SAT 98
[2017-06-20] MEDS: NIFEdipine 10 MG CAP SCH (22:22)
[2017-06-21] MEDS: hydrALAZINE HCL 50 MG TAB PEG SCH ×5 (00:12→23:34)
[2017-06-21] MEDS: NIFEdipine 10 MG CAP SCH ×3 (05:45→21:30)
[2017-06-21 08:00] VITALS: BP 118/83; PULSE 108; RESP 18; TEMP 98.1; O2SAT 97
[2017-06-21] MEDS: LANSOPRAZOLE SOLUTAB 30 MG TAB G-TUBE SCH (09:01)
[2017-06-21] MEDS: METOPROLOL TARTRATE 100 MG TAB PEG SCH ×2 (09:01→20:26)
[2017-06-21] MEDS: DOCUSATE SODIUM 50 MG/SENNA 8.6 MG TAB PEG SCH ×2 (09:01→20:28)
[2017-06-21] MEDS: LISINOPRIL 20 MG TAB PEG SCH (09:02)
[2017-06-21] MEDS: LACTIC ACID (AMMONIUM LACTATE) 12% LOTION 225 GM BTL TOPICAL SCH ×2 (09:02→20:28)
[2017-06-21 12:08] VITALS: BP 130/87; PULSE 78; RESP 18; O2SAT 97
[2017-06-21 13:53] VITALS: BP 134/86; PULSE 84; RESP 18; O2SAT 95
--- NOTE | 2017-06-21 14:20 | HHI.PR ---
Subjective Remarks Patient seen and examined today for hemorrhagic CVA. Patient appears be doing better. She is sitting up with physical therapy and occupational therapy. She was nodding her head yes and no further questions. Therapy indicates that this is the first time that she is set up on her own since being in the hospital. Objective Vitals Vital Signs Date Time Temp Pulse Resp B/P Pulse Ox O2 Delivery O2 Flow Rate FiO2 06/21/17 13:53 84 18 134/86 95 06/21/17 12:08 78 18 130/87 97 06/21/17 08:00 98.1 108 18 118/83 97 06/20/17 20:00 98.8 98 24 152/91 98 06/20/17 14:51 75 119/94 I/O 06/20/17 06/20/17 06/20/17 06/21/17 06/21/17 06/21/17 07:00 15:00 23:00 07:00 15:00 23:00 Intake Total 300 ml 1100 ml Balance 300 ml 1100 ml Intake Oral 0 ml Tube Feeding 120 ml 720 ml Tube Irrigant 120 ml 180 ml Other 60 ml 200 ml # Voids 2 4 2 # Bowel Movements 0 1 Objective Remarks GENERAL: Well-developed, well-nourished, in no acute distress. Awake, responds minimally with head nods. HEENT: Head is normocephalic without any lesions or masses noted. Facial features are symmetric. Eyes: Conjunctivae were clear. CARDIAC: Regular rhythm, regular rate. S1/S2 are heard. 2 or 6 ejection, no gallops or rubs. LUNGS: Clear to auscultation bilaterally. No wheeze, rhonchi or rales. No use of accessory muscles on inspiration or expiration. ABDOMEN: Soft, nontender. Nondistended. Bowel sounds heard in all 4 quadrants. No organomegaly or masses. Negative rebound, negative guarding, PEG tube noted without any signs of infection EXTREMITIES: No edema, pulses are equal bilaterally. No cyanosis or clubbing NEUROLOGY: Patient is moving left upper extremity and able to move left foot. Patient unable to move right upper and lower extremity. Procedures Peg Tube placed 05/08/17 (Dr. De Los Santos) Vascular Central Line Catheter: No A/P Assessment and Plan Intracranial hemorrhage secondary to uncontrolled hypertension and hypertensive emergency Thalamic ICH with intraventricular extension. No surgical intervention per Dr. Wang, Neurology following, ok for discharge to rehab. Continue PT/OT/ST Dysphagia suspect secondary to intracranial bleed Post PEG placement 05/09/17. Speech therapy was recommended patient be nothing by mouth Speech therapy to continue to follow and advance diet per exam Dietary consulted and made recommendations for bolus feeding Hypertension emergency, improving Nifedipine 30 mg every 8 hours Lisinopril 40 mg daily Apresoline 100 mg every 6 hours Catapres TTS 3 patch Metoprolol 100 mg twice daily Apresoline, clonidine, Vasotec as needed Febrile illness, low-grade fever, resolved Could be secondary to occult infection or possible neurologic from CVA, hemorrhage CBC, BMP were unremarkable chest x-ray indicated atelectasis versus infiltrate urinalysis was normal blood culture negative for 5 days Completed Levaquin 750 mg daily for 7 days Hyperglycemia Hemoglobin A1c 6.2 Glucerna 1.5 bolus tube feeding Xeroderma on bilateral feet: Lac-Hydrin 12% Lotion continued. GI Prophylaxis: Prevacid via PEG tube DVT Prophylaxis: Sequential compression devices, chemical prophylaxis contraindicated secondary to intracranial hemorrhage Discharge Planning Discharge planning per case management Kayden Kelley Jun 21, 2017 14:20
[2017-06-21 17:40] VITALS: BP 127/88; PULSE 76; RESP 16; O2SAT 95
[2017-06-21 20:00] VITALS: BP 149/98; PULSE 83; RESP 20; TEMP 98.8; O2SAT 98
[2017-06-22] MEDS: hydrALAZINE HCL 50 MG TAB PEG SCH ×3 (05:07→16:21)
[2017-06-22] MEDS: NIFEdipine 10 MG CAP SCH ×3 (05:07→16:21)
[2017-06-22] MEDS: LISINOPRIL 20 MG TAB PEG SCH (08:16)
[2017-06-22] MEDS: LANSOPRAZOLE SOLUTAB 30 MG TAB G-TUBE SCH (08:16)
[2017-06-22] MEDS: LACTIC ACID (AMMONIUM LACTATE) 12% LOTION 225 GM BTL TOPICAL SCH ×2 (08:16→20:37)
[2017-06-22] MEDS: DOCUSATE SODIUM 50 MG/SENNA 8.6 MG TAB PEG SCH ×2 (08:16→20:36)
[2017-06-22] MEDS: METOPROLOL TARTRATE 100 MG TAB PEG SCH ×2 (08:16→20:36)
[2017-06-22 08:47] VITALS: BP 147/111; PULSE 80; RESP 19; TEMP 97.9; O2SAT 90
--- NOTE | 2017-06-22 13:15 | HHI.PR ---
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 Patient resting in bed comfortably. No indication of any new complaints. Nursing staff does not indicate any new problems. Objective Vitals Vital Signs Date Time Temp Pulse Resp B/P Pulse Ox O2 Delivery O2 Flow Rate FiO2 06/22/17 08:47 97.9 80 19 147/111 90 06/21/17 20:00 98.8 83 20 149/98 98 06/21/17 17:40 76 16 127/88 95 06/21/17 13:53 84 18 134/86 95 I/O 06/21/17 06/21/17 06/21/17 06/22/17 06/22/17 06/22/17 07:00 15:00 23:00 07:00 15:00 23:00 Intake Total 1100 ml Balance 1100 ml Intake Oral 0 ml Tube Feeding 720 ml Tube Irrigant 180 ml Other 200 ml # Voids 2 4 1 1 # Bowel Movements 1 0 0 Objective Remarks GENERAL: Well-developed, well-nourished, in no acute distress. Awake, responds minimally with head nods. HEENT: Head is normocephalic without any lesions or masses noted. Facial features are symmetric. Eyes: Conjunctivae were clear. CARDIAC: Regular rhythm, regular rate. S1/S2 are heard. 2 or 6 ejection, no gallops or rubs. LUNGS: Clear to auscultation bilaterally. No wheeze, rhonchi or rales. No use of accessory muscles on inspiration or expiration. ABDOMEN: Soft, nontender. Nondistended. Bowel sounds heard in all 4 quadrants. No organomegaly or masses. Negative rebound, negative guarding, PEG tube noted without any signs of infection EXTREMITIES: No edema, pulses are equal bilaterally. No cyanosis or clubbing NEUROLOGY: Patient is moving left upper extremity and able to move left foot. Patient unable to move right upper and lower extremity. Procedures Peg Tube placed 05/08/17 (Dr. De Los Santos) Urinary Catheter: No Vascular Central Line Catheter: No A/P Assessment and Plan Intracranial hemorrhage secondary to uncontrolled hypertension and hypertensive emergency Thalamic ICH with intraventricular extension. No surgical intervention per Dr. Wang, Neurology following, ok for discharge to rehab. Continue PT/OT/ST Dysphagia suspect secondary to intracranial bleed Post PEG placement 05/09/17. Speech therapy was recommended patient be nothing by mouth Speech therapy to continue to follow and advance diet per exam Dietary consulted and made recommendations for bolus feeding Hypertension emergency, improving Nifedipine 30 mg every 6 hours Lisinopril 40 mg daily Apresoline 100 mg every 6 hours Catapres TTS 3 patch Metoprolol 100 mg twice daily Apresoline, clonidine, Vasotec as needed Febrile illness, low-grade fever, resolved Could be secondary to occult infection or possible neurologic from CVA, hemorrhage CBC, BMP were unremarkable chest x-ray indicated atelectasis versus infiltrate urinalysis was normal blood culture negative for 5 days Completed Levaquin 750 mg daily for 7 days Hyperglycemia Hemoglobin A1c 6.2 Glucerna 1.5 bolus tube feeding Xeroderma on bilateral feet: Lac-Hydrin 12% Lotion continued. GI Prophylaxis: Prevacid via PEG tube DVT Prophylaxis: Sequential compression devices, chemical prophylaxis contraindicated secondary to intracranial hemorrhage Discharge Planning Discharge planning per case management Kayden Kelley Jun 22, 2017 13:15
[2017-06-22 20:00] VITALS: BP 124/89; PULSE 111; RESP 16; TEMP 98.4; O2SAT 99
[2017-06-23] MEDS: NIFEdipine 10 MG CAP SCH ×4 (01:02→17:40)
[2017-06-23] MEDS: hydrALAZINE HCL 50 MG TAB PEG SCH ×4 (05:57→17:39)
[2017-06-23 08:00] VITALS: BP 142/96; PULSE 120; RESP 18; TEMP 98.6; O2SAT 96
[2017-06-23] MEDS: LISINOPRIL 20 MG TAB PEG SCH (08:55)
[2017-06-23] MEDS: METOPROLOL TARTRATE 100 MG TAB PEG SCH ×2 (08:55→20:27)
[2017-06-23] MEDS: LANSOPRAZOLE SOLUTAB 30 MG TAB G-TUBE SCH (08:55)
[2017-06-23] MEDS: DOCUSATE SODIUM 50 MG/SENNA 8.6 MG TAB PEG SCH ×2 (08:55→20:27)
[2017-06-23] MEDS: LACTIC ACID (AMMONIUM LACTATE) 12% LOTION 225 GM BTL TOPICAL SCH ×2 (08:57→20:28)
[2017-06-23 09:00] VITALS: PULSE 108
--- NOTE | 2017-06-23 11:31 | HHI.PR ---
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 Patient just finished working with physical therapy and occupational therapy. She did not do any verbal or had not increased use when asked questions today. Physical therapy and occupational therapy says that she is improving and would benefit from a more intensive therapy facility Objective Vitals Vital Signs Date Time Temp Pulse Resp B/P Pulse Ox O2 Delivery O2 Flow Rate FiO2 06/23/17 08:00 98.6 120 18 142/96 96 06/22/17 20:00 98.4 111 16 124/89 99 I/O 06/22/17 06/22/17 06/22/17 06/23/17 06/23/17 06/23/17 07:00 15:00 23:00 07:00 15:00 23:00 Intake Total 180 ml Balance 180 ml Intake Oral 0 ml IV Total 0 ml Tube Feeding 120 ml Other 60 ml # Voids 1 1 1 # Bowel Movements 0 Objective Remarks GENERAL: Well-developed, well-nourished, in no acute distress. Awake, responds minimally with head nods. HEENT: Head is normocephalic without any lesions or masses noted. Facial features are symmetric. Eyes: Conjunctivae were clear. CARDIAC: Regular rhythm, regular rate. S1/S2 are heard. 2 or 6 ejection, no gallops or rubs. LUNGS: Clear to auscultation bilaterally. No wheeze, rhonchi or rales. No use of accessory muscles on inspiration or expiration. ABDOMEN: Soft, nontender. Nondistended. Bowel sounds heard in all 4 quadrants. No organomegaly or masses. Negative rebound, negative guarding, PEG tube noted without any signs of infection EXTREMITIES: No edema, pulses are equal bilaterally. No cyanosis or clubbing NEUROLOGY: Patient is moving left upper extremity and able to move left foot. Patient unable to move right upper and lower extremity. Procedures Peg Tube placed 05/08/17 (Dr. De Los Santos) Urinary Catheter: No Vascular Central Line Catheter: No A/P Assessment and Plan Intracranial hemorrhage secondary to uncontrolled hypertension and hypertensive emergency Thalamic ICH with intraventricular extension. No surgical intervention per Dr. Wang, Neurology following, ok for discharge to rehab. Continue PT/OT/ST Patient is improving per therapy, they indicate patient would benefit from a acute care facility that could supply her more therapy than we can offer here Dysphagia suspect secondary to intracranial bleed Post PEG placement 05/09/17. Speech therapy was recommended patient be nothing by mouth Speech therapy to continue to follow and advance diet per exam Dietary consulted and made recommendations for bolus feeding Hypertension emergency, improving Nifedipine 30 mg every 6 hours Lisinopril 40 mg daily Apresoline 100 mg every 6 hours Catapres TTS 3 patch Metoprolol 100 mg twice daily Apresoline, clonidine, Vasotec as needed Hyperglycemia Hemoglobin A1c 6.2 Glucerna 1.5 bolus tube feeding Xeroderma on bilateral feet: Lac-Hydrin 12% Lotion continued. GI Prophylaxis: Prevacid via PEG tube DVT Prophylaxis: Sequential compression devices, chemical prophylaxis contraindicated secondary to intracranial hemorrhage Discharge Planning Discharge planning per case management Kayden Kelley Jun 23, 2017 11:31
[2017-06-23 12:50] VITALS: BP 121/88; PULSE 74; RESP 16
[2017-06-23 17:37] VITALS: BP 136/91; PULSE 87; RESP 18
[2017-06-23 20:00] VITALS: BP 119/85; PULSE 97; RESP 16; TEMP 98.1; O2SAT 99
[2017-06-24] MEDS: hydrALAZINE HCL 50 MG TAB PEG SCH ×5 (00:40→23:47)
[2017-06-24] MEDS: NIFEdipine 10 MG CAP SCH ×5 (00:41→23:50)
[2017-06-24 09:25] VITALS: BP 121/88; PULSE 90; RESP 18; TEMP 98.1; O2SAT 96
[2017-06-24] MEDS: LANSOPRAZOLE SOLUTAB 30 MG TAB G-TUBE SCH (09:26)
[2017-06-24] MEDS: DOCUSATE SODIUM 50 MG/SENNA 8.6 MG TAB PEG SCH ×2 (09:27→20:34)
[2017-06-24] MEDS: LISINOPRIL 20 MG TAB PEG SCH (09:27)
[2017-06-24] MEDS: METOPROLOL TARTRATE 100 MG TAB PEG SCH ×2 (09:27→20:34)
[2017-06-24] MEDS: LACTIC ACID (AMMONIUM LACTATE) 12% LOTION 225 GM BTL TOPICAL SCH ×2 (09:35→20:34)
--- NOTE | 2017-06-24 11:37 | HHI.PR ---
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 Patient denies any new complaints. Son was visiting patient at bedside today. No change in clinical status Objective Vitals Vital Signs Date Time Temp Pulse Resp B/P Pulse Ox O2 Delivery O2 Flow Rate FiO2 06/24/17 09:25 98.1 90 18 121/88 96 06/23/17 20:00 98.1 97 16 119/85 99 06/23/17 17:37 87 18 136/91 06/23/17 12:50 74 16 121/88 I/O 06/23/17 06/23/17 06/23/17 06/24/17 06/24/17 06/24/17 07:00 15:00 23:00 07:00 15:00 23:00 Intake Total 700 ml 180 ml Balance 700 ml 180 ml Intake Oral 0 ml IV Total 0 ml Tube Feeding 480 ml 120 ml Tube Irrigant 120 ml Other 100 ml 60 ml # Voids 1 2 # Bowel Movements 0 Objective Remarks GENERAL: Well-developed, well-nourished, in no acute distress. Awake, responds minimally with head nods. HEENT: Head is normocephalic without any lesions or masses noted. Facial features are symmetric. Eyes: Conjunctivae were clear. CARDIAC: Regular rhythm, regular rate. S1/S2 are heard. 2 or 6 ejection, no gallops or rubs. LUNGS: Clear to auscultation bilaterally. No wheeze, rhonchi or rales. No use of accessory muscles on inspiration or expiration. ABDOMEN: Soft, nontender. Nondistended. Bowel sounds heard in all 4 quadrants. No organomegaly or masses. Negative rebound, negative guarding, PEG tube noted without any signs of infection EXTREMITIES: No edema, pulses are equal bilaterally. No cyanosis or clubbing NEUROLOGY: Patient is moving left upper extremity and able to move left foot. Patient unable to move right upper and lower extremity. Procedures Peg Tube placed 05/08/17 (Dr. De Los Santos) Urinary Catheter: No Vascular Central Line Catheter: No A/P Assessment and Plan Intracranial hemorrhage secondary to uncontrolled hypertension and hypertensive emergency Thalamic ICH with intraventricular extension. No surgical intervention per Dr. Wnag, Neurology following, ok for discharge to rehab. Continue PT/OT/ST Patient is improving per therapy, they indicate patient would benefit from a acute care facility that could supply her more therapy than we can offer here Dysphagia suspect secondary to intracranial bleed Post PEG placement 05/09/17. Speech therapy was recommended patient be nothing by mouth Speech therapy to continue to follow and advance diet per exam Dietary consulted and made recommendations for bolus feeding Hypertension emergency, improving Nifedipine 30 mg every 6 hours Lisinopril 40 mg daily Apresoline 100 mg every 6 hours Catapres TTS 3 patch Metoprolol 100 mg twice daily Apresoline, clonidine, Vasotec as needed Hyperglycemia Hemoglobin A1c 6.2 Glucerna 1.5 bolus tube feeding Xeroderma on bilateral feet: Lac-Hydrin 12% Lotion continued. GI Prophylaxis: Prevacid via PEG tube DVT Prophylaxis: Sequential compression devices, chemical prophylaxis contraindicated secondary to intracranial hemorrhage Discharge Planning Discharge planning per case management Kayden Kelley Jun 24, 2017 11:37
[2017-06-24 11:56] VITALS: BP 101/78; PULSE 72; RESP 18; O2SAT 95
[2017-06-24 17:43] VITALS: BP 126/84; PULSE 68; RESP 12; O2SAT 95
[2017-06-24 20:00] VITALS: BP 143/91; PULSE 90; RESP 22; TEMP 98.7; O2SAT 99
[2017-06-25] MEDS: NIFEdipine 10 MG CAP SCH ×4 (05:30→23:55)
[2017-06-25] MEDS: hydrALAZINE HCL 50 MG TAB PEG SCH ×4 (05:30→23:55)
--- NOTE | 2017-06-25 07:32 | HHI.PR ---
Subjective Remarks Patient seen and examined today for follow-up on hemorrhagic CVA, and cranial hemorrhage. Patient lying in bed. Nods answers. Denies any new complaints. Objective Vitals Vital Signs Date Time Temp Pulse Resp B/P Pulse Ox O2 Delivery O2 Flow Rate FiO2 06/24/17 20:00 98.7 90 22 143/91 99 06/24/17 17:43 68 12 126/84 95 06/24/17 11:56 72 18 101/78 95 06/24/17 09:25 98.1 90 18 121/88 96 I/O 06/24/17 06/24/17 06/24/17 06/25/17 06/25/17 06/25/17 07:00 15:00 23:00 07:00 15:00 23:00 Intake Total 880 ml Balance 880 ml Tube Feeding 480 ml Other 400 ml # Voids 2 1 # Bowel Movements 0 0 Objective Remarks GENERAL: Well-developed, well-nourished, in no acute distress. Awake, responds minimally with head nods. HEENT: Head is normocephalic without any lesions or masses noted. Facial features are symmetric. Eyes: Conjunctivae were clear. CARDIAC: Regular rhythm, regular rate. S1/S2 are heard. 2 or 6 ejection, no gallops or rubs. LUNGS: Clear to auscultation bilaterally. No wheeze, rhonchi or rales. No use of accessory muscles on inspiration or expiration. ABDOMEN: Soft, nontender. Nondistended. Bowel sounds heard in all 4 quadrants. No organomegaly or masses. Negative rebound, negative guarding, PEG tube noted without any signs of infection EXTREMITIES: No edema, pulses are equal bilaterally. No cyanosis or clubbing NEUROLOGY: Patient is moving left upper extremity and able to move left foot. Patient unable to move right upper and lower extremity. Procedures Peg Tube placed 05/08/17 (Dr. De Los Santos) Urinary Catheter: No Vascular Central Line Catheter: No A/P Assessment and Plan Intracranial hemorrhage secondary to uncontrolled hypertension and hypertensive emergency Thalamic ICH with intraventricular extension. No surgical intervention per Dr. Wang, Neurology following, ok for discharge to rehab. Continue PT/OT/ST Patient is improving per therapy, they indicate patient would benefit from a acute care facility that could supply her more therapy than we can offer here Case management consulted for inpatient rehabilitation Dysphagia suspect secondary to intracranial bleed Post PEG placement 05/09/17. Speech therapy was recommended patient be nothing by mouth Speech therapy to continue to follow and advance diet per exam Dietary consulted and made recommendations for bolus feeding Hypertension emergency, improving Nifedipine 30 mg every 6 hours Lisinopril 40 mg daily Apresoline 100 mg every 6 hours Catapres TTS 3 patch Metoprolol 100 mg twice daily Apresoline, clonidine, Vasotec as needed Hyperglycemia Hemoglobin A1c 6.2 Glucerna 1.5 bolus tube feeding Xeroderma on bilateral feet: Lac-Hydrin 12% Lotion continued. GI Prophylaxis: Prevacid via PEG tube DVT Prophylaxis: Sequential compression devices, chemical prophylaxis contraindicated secondary to intracranial hemorrhage Discharge Planning Discharge planning per case management Kayden Kelley Jun 25, 2017 07:32
[2017-06-25] MEDS: LANSOPRAZOLE SOLUTAB 30 MG TAB G-TUBE SCH (07:40)
[2017-06-25] MEDS: METOPROLOL TARTRATE 100 MG TAB PEG SCH ×2 (07:40→20:42)
[2017-06-25] MEDS: LISINOPRIL 20 MG TAB PEG SCH (07:40)
[2017-06-25] MEDS: DOCUSATE SODIUM 50 MG/SENNA 8.6 MG TAB PEG SCH ×2 (07:40→20:42)
[2017-06-25] MEDS: LACTIC ACID (AMMONIUM LACTATE) 12% LOTION 225 GM BTL TOPICAL SCH ×2 (07:41→20:42)
[2017-06-25 07:53] VITALS: BP 135/83; PULSE 82; RESP 15; TEMP 96.6; O2SAT 98
[2017-06-25 20:00] VITALS: BP 149/91; PULSE 95; RESP 20; TEMP 99.3; O2SAT 98
[2017-06-26] MEDS: NIFEdipine 10 MG CAP SCH (06:32)
[2017-06-26] MEDS: hydrALAZINE HCL 50 MG TAB PEG SCH ×3 (06:34→18:09)
[2017-06-26 08:00] VITALS: BP 136/87; PULSE 93; RESP 20; TEMP 98.4; O2SAT 98
[2017-06-26] MEDS: METOPROLOL TARTRATE 100 MG TAB PEG SCH ×2 (09:43→21:16)
[2017-06-26] MEDS: DOCUSATE SODIUM 50 MG/SENNA 8.6 MG TAB PEG SCH ×2 (09:43→21:16)
[2017-06-26] MEDS: LANSOPRAZOLE SOLUTAB 30 MG TAB G-TUBE SCH (09:43)
[2017-06-26] MEDS: LISINOPRIL 20 MG TAB PEG SCH (09:43)
[2017-06-26] MEDS: LACTIC ACID (AMMONIUM LACTATE) 12% LOTION 225 GM BTL TOPICAL SCH ×2 (09:44→21:16)
--- NOTE | 2017-06-26 11:21 | HHI.PR ---
Subjective Remarks Patient seen in follow-up for hemorrhagic CVA. No change the patient's clinical status. Patient denies any new complaints Objective Vitals Vital Signs Date Time Temp Pulse Resp B/P (MAP) Pulse Ox O2 Delivery O2 Flow Rate FiO2 06/26/17 08:00 98.4 93 20 136/87 (103) 98 06/25/17 20:00 99.3 95 20 149/91 (110) 98 I/O 06/25/17 06/25/17 06/25/17 06/26/17 06/26/17 06/26/17 07:00 15:00 23:00 07:00 15:00 23:00 Intake Total 800 ml 300 ml 0 ml Balance 800 ml 300 ml 0 ml Intake Oral 0 ml Tube Feeding 480 ml 240 ml Other 320 ml 60 ml # Voids 2 1 1 # Bowel Movements 0 0 0 Objective Remarks GENERAL: Well-developed, well-nourished, in no acute distress. Awake, responds minimally with head nods. HEENT: Head is normocephalic without any lesions or masses noted. Facial features are symmetric. Eyes: Conjunctivae were clear. CARDIAC: Regular rhythm, regular rate. S1/S2 are heard. 2 or 6 ejection, no gallops or rubs. LUNGS: Clear to auscultation bilaterally. No wheeze, rhonchi or rales. No use of accessory muscles on inspiration or expiration. ABDOMEN: Soft, nontender. Nondistended. Bowel sounds heard in all 4 quadrants. No organomegaly or masses. Negative rebound, negative guarding, PEG tube noted without any signs of infection EXTREMITIES: No edema, pulses are equal bilaterally. No cyanosis or clubbing NEUROLOGY: Patient is moving left upper extremity and able to move left foot. Patient unable to move right upper and lower extremity. Procedures Peg Tube placed 05/08/17 (Dr. De Los Santos) Urinary Catheter: No Vascular Central Line Catheter: No A/P Assessment and Plan Intracranial hemorrhage secondary to uncontrolled hypertension and hypertensive emergency Thalamic ICH with intraventricular extension. No surgical intervention per Dr. Wang, Neurology following, ok for discharge to rehab. Continue PT/OT/ST Patient is improving per therapy, they indicate patient would benefit from a acute care facility that could supply her more therapy than we can offer here Case management consulted for inpatient rehabilitation Dysphagia suspect secondary to intracranial bleed Post PEG placement 05/09/17. Speech therapy was recommended patient be nothing by mouth Speech therapy to continue to follow and advance diet per exam Dietary consulted and made recommendations for bolus feeding Hypertension emergency, improving Nifedipine 40 mg every 6 hours Lisinopril 40 mg daily Apresoline 100 mg every 6 hours Catapres TTS 3 patch Metoprolol 100 mg twice daily Apresoline, clonidine, Vasotec as needed Hyperglycemia Hemoglobin A1c 6.2 Glucerna 1.5 bolus tube feeding Xeroderma on bilateral feet: Lac-Hydrin 12% Lotion continued. GI Prophylaxis: Prevacid via PEG tube DVT Prophylaxis: Sequential compression devices, chemical prophylaxis contraindicated secondary to intracranial hemorrhage Discharge Planning Discharge planning per case management Kayden Kelley Jun 26, 2017 11:21
[2017-06-26] MEDS: NIFEdipine 20 MG CAP PEG SCH ×2 (12:39→18:09)
[2017-06-26 20:00] VITALS: BP 146/93; PULSE 79; RESP 16; TEMP 98.5; O2SAT 99
[2017-06-27] MEDS: NIFEdipine 20 MG CAP PEG SCH ×4 (00:20→18:05)
[2017-06-27] MEDS: hydrALAZINE HCL 50 MG TAB PEG SCH ×4 (00:20→18:05)
[2017-06-27 08:00] VITALS: BP 142/90; PULSE 88; RESP 18; TEMP 98.3; O2SAT 96
[2017-06-27] MEDS: METOPROLOL TARTRATE 100 MG TAB PEG SCH ×2 (08:59→20:47)
[2017-06-27] MEDS: LANSOPRAZOLE SOLUTAB 30 MG TAB G-TUBE SCH (08:59)
[2017-06-27] MEDS: LISINOPRIL 20 MG TAB PEG SCH (08:59)
[2017-06-27] MEDS: DOCUSATE SODIUM 50 MG/SENNA 8.6 MG TAB PEG SCH ×2 (08:59→20:42)
[2017-06-27] MEDS: LACTIC ACID (AMMONIUM LACTATE) 12% LOTION 225 GM BTL TOPICAL SCH ×2 (09:01→20:42)
--- NOTE | 2017-06-27 10:04 | HHI.PR ---
Subjective Remarks Follow-up for hemorrhagic CVA. Patient has no acute complaints. Nurse later called and informed me that the patient has odorous brown-yellow vaginal discharge, but denies irritation; no bright red blood present. Objective Vitals Vital Signs Date Time Temp Pulse Resp B/P (MAP) Pulse Ox O2 Delivery O2 Flow Rate FiO2 06/27/17 08:00 98.3 88 18 142/90 (107) 96 06/26/17 20:00 98.5 79 16 146/93 (110) 99 I/O 06/26/17 06/26/17 06/26/17 06/27/17 06/27/17 06/27/17 07:00 15:00 23:00 07:00 15:00 23:00 Intake Total 0 ml 0 ml 680 ml 380 ml Output Total 0 ml Balance 0 ml 0 ml 680 ml 380 ml Intake Oral 0 ml 0 ml Tube Feeding 480 ml 120 ml Tube Irrigant 60 ml Other 200 ml 200 ml Output Urine Total 0 ml # Voids 1 1 # Bowel Movements 0 0 Objective Remarks GENERAL: Well nourished well-developed patient in no apparent distress. CARDIOVASCULAR: Regular rate and rhythm. 2/6 murmur. RESPIRATORY: No accessory muscle use. Clear to auscultation bilaterally. GASTROINTESTINAL: Abdomen soft, non-tender, nondistended. MUSCULOSKELETAL: Swelling of the right hand and forearm, same. NEUROLOGICAL: Awake and alert. Aphasic. 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 Procedures Peg Tube placed 05/08/17 (Dr. 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 Will obtain wet prep and GC swab. Intracranial hemorrhage secondary to uncontrolled hypertension and hypertensive emergency Thalamic ICH with intraventricular extension. No surgical intervention per Dr. Wagn. Neurology following, ok for discharge to rehab. Continue PT/OT/ST Dysphagia suspect secondary to intracranial bleed Post PEG placement 05/09/17. Patient initially pureed diet with honey thickened liquids, tsp by tsp, but reevaluated by speech therapy on 06/14 and made NPO as she had clinical symptoms of aspiration with all consistencies. Dietary following with recommendations as below: Jevity 1.5 boluses of 240mls @ 9AM, 1PM, & 6PM and 120mls @ 9PM. Flush 30mls water before and after each bolus feeding. Additional 100ml free water flush q6hrs. Hypertension emergency/HTN: Stable Nifedipine 40 mg q6h (recently increased on 06/26) Lisinopril 40 mg daily Hydralazine 100 mg every 6 hours Catapres 0.3 mg patch weekly Metoprolol 100 mg twice daily Hydralazine prn for SBP >150. Febrile illness: Resolved. Could be secondary to occult infection or possible neurologic from CVA, hemorrhage CBC, BMP unremarkable 05/28 Chest x-ray indicated mild L lung atelectasis versus infiltrate. 05/31 Chest x-ray appears improved from prior; no focal consolidations noted. Urinalysis was normal Blood culture 05/28 NGTD S/p Levaquin 750 mg daily for total of 7 days Hypernatremia and hyperchloremia: Resolved. Likely to related to decreased by mouth intake. -S/p IVF -Monitor BMP periodically. Pre-renal azotemia: Resolved. Likely attributed to poor po intake. -S/p IVF -Continue free water flushes Hyperglycemia Hemoglobin A1c 6.2 Glucerna 1.5 for feeding Xeroderma on bilateral feet: Lac-Hydrin 12% Lotion continued. Oral thrush continued: Fluconazole 200 mg daily for 7 days complete GI Prophylaxis: Prevacid via PEG tube DVT Prophylaxis: SCDs. Chemical prophylaxis contraindicated secondary to intracranial hemorrhage Discharge Planning 06/23/17: Referred to [facility]. Yuly Shafer Jun 27, 2017 10:04
[2017-06-27 12:20] VITALS: BP 129/95; PULSE 61; RESP 20; O2SAT 95
[2017-06-27] MEDS: REMOVE OLD CATAPRES (CLONIDINE) PATCH T-DERMAL SCH (14:15)
[2017-06-27] MEDS: cloNIDine HCL 0.3 MG/24 HR PATCH T-DERMAL SCH (14:15)
[2017-06-27 17:45] VITALS: BP 164/101; PULSE 70
[2017-06-27 20:00] VITALS: BP 149/93; PULSE 101; RESP 20; TEMP 98.1; O2SAT 95
[2017-06-28] VITALS: BP 150/101; PULSE 70
[2017-06-28] MEDS: NIFEdipine 20 MG CAP PEG SCH ×4 (00:23→17:13)
[2017-06-28] MEDS: hydrALAZINE HCL 50 MG TAB PEG SCH ×4 (00:23→17:13)
[2017-06-28] MEDS: LACTIC ACID (AMMONIUM LACTATE) 12% LOTION 225 GM BTL TOPICAL SCH ×2 (09:00→20:37)
[2017-06-28] MEDS: LISINOPRIL 20 MG TAB PEG SCH (09:42)
[2017-06-28] MEDS: DOCUSATE SODIUM 50 MG/SENNA 8.6 MG TAB PEG SCH (09:42)
[2017-06-28] MEDS: LANSOPRAZOLE SOLUTAB 30 MG TAB G-TUBE SCH (09:42)
[2017-06-28] MEDS: METOPROLOL TARTRATE 100 MG TAB PEG SCH ×2 (09:42→20:30)
--- NOTE | 2017-06-28 12:18 | HHI.PR ---
Subjective Remarks Follow-up for hemorrhagic CVA. Nods "yes" when I ask her if she is ok. Aphasic. Objective Vitals Vital Signs Date Time Temp Pulse Resp B/P (MAP) Pulse Ox O2 Delivery O2 Flow Rate FiO2 06/28/17 00:00 70 150/101 (117) 06/27/17 20:00 98.1 101 20 149/93 (111) 95 06/27/17 17:45 70 164/101 (122) 06/27/17 12:20 61 20 129/95 (106) 95 I/O 06/27/17 06/27/17 06/27/17 06/28/17 06/28/17 06/28/17 06:59 14:59 22:59 06:59 14:59 22:59 Intake Total 380 ml 1210 ml 320 ml Output Total 1 ml Balance 380 ml 1209 ml 320 ml Tube Feeding 120 ml 720 ml 120 ml Tube Irrigant 60 ml 90 ml 200 ml Other 200 ml 400 ml Stool Total 1 ml # Voids 3 1 1 # Bowel Movements 0 0 Objective Remarks GENERAL: Well nourished well-developed patient in no apparent distress. CARDIOVASCULAR: Regular rate and rhythm. 2/6 murmur notable at LLSB. RESPIRATORY: No accessory muscle use. Clear to auscultation bilaterally. GASTROINTESTINAL: Abdomen soft, non-tender, nondistended. MUSCULOSKELETAL: Swelling of the right hand and forearm, same. NEUROLOGICAL: Awake and alert. Aphasic. 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 Procedures Peg Tube placed 05/08/17 (Dr. 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 Wet prep and GC testing negative. Intracranial hemorrhage secondary to uncontrolled hypertension and hypertensive emergency Thalamic ICH with intraventricular extension. No surgical intervention per Dr. Wang. Neurology following, ok for discharge to rehab. Continue PT/OT/ST Dysphagia suspect secondary to intracranial bleed Post PEG placement 05/09/17. Patient initially pureed diet with honey thickened liquids, tsp by tsp, but reevaluated by speech therapy on 06/14 and made NPO as she had clinical symptoms of aspiration with all consistencies. Dietary following with recommendations as below: Jevity 1.5 boluses of 240mls @ 9AM, 1PM, & 6PM and 120mls @ 9PM. Flush 30mls water before and after each bolus feeding. Additional 100ml free water flush q6hrs. Hypertension emergency/HTN: Nifedipine 40 mg q6h (recently increased on 06/26) Lisinopril 40 mg daily Hydralazine 100 mg every 6 hours Catapres 0.3 mg patch weekly Metoprolol 100 mg twice daily Hydralazine prn for SBP >150. BP still elevated today but improved at 1230. If still remains elevated throughout today, will likely need to restart HCTZ. Febrile illness: Resolved. Could be secondary to occult infection or possible neurologic from CVA, hemorrhage CBC, BMP unremarkable 05/28 Chest x-ray indicated mild L lung atelectasis versus infiltrate. 05/31 Chest x-ray appears improved from prior; no focal consolidations noted. Urinalysis was normal Blood culture 05/28 NGTD S/p Levaquin 750 mg daily for total of 7 days Hypernatremia and hyperchloremia: Resolved. Likely to related to decreased by mouth intake. -S/p IVF -Monitor BMP periodically. Pre-renal azotemia: Resolved. Likely attributed to poor po intake. -S/p IVF -Continue free water flushes Hyperglycemia Hemoglobin A1c 6.2 Glucerna 1.5 for feeding Xeroderma on bilateral feet: Lac-Hydrin 12% Lotion continued. Oral thrush continued: Fluconazole 200 mg daily for 7 days complete GI Prophylaxis: Prevacid via PEG tube DVT Prophylaxis: SCDs. Chemical prophylaxis contraindicated secondary to intracranial hemorrhage Discharge Planning 06/23/17: Referred to [facility]. Yuly Shafer Jun 28, 2017 12:18
[2017-06-28 12:25] VITALS: BP 160/108; PULSE 66; RESP 18; O2SAT 97
[2017-06-28 12:33] VITALS: BP 144/98; PULSE 80; RESP 16; TEMP 97.1; O2SAT 100
[2017-06-28 17:16] VITALS: BP 149/96; PULSE 76; RESP 20; O2SAT 94
[2017-06-28 20:00] VITALS: BP 149/97; PULSE 87; RESP 18; TEMP 98.6; O2SAT 99
[2017-06-29] MEDS: NIFEdipine 20 MG CAP PEG SCH ×4 (00:36→17:11)
[2017-06-29] MEDS: hydrALAZINE HCL 50 MG TAB PEG SCH ×4 (00:37→17:11)
[2017-06-29 08:39] VITALS: BP 142/97; PULSE 84; RESP 18; TEMP 95.6; O2SAT 98
[2017-06-29] MEDS: METOPROLOL TARTRATE 100 MG TAB PEG SCH ×2 (08:55→20:31)
[2017-06-29] MEDS: LANSOPRAZOLE SOLUTAB 30 MG TAB G-TUBE SCH (08:55)
[2017-06-29] MEDS: LISINOPRIL 20 MG TAB PEG SCH (08:55)
[2017-06-29] MEDS: SENNOSIDES SYRUP 8.8 MG/5 ML CUP PEG SCH (08:56)
[2017-06-29] MEDS: LACTIC ACID (AMMONIUM LACTATE) 12% LOTION 225 GM BTL TOPICAL SCH ×2 (08:57→20:31)
[2017-06-29 10:16] LABS: BICARBONATE 28.4 MEQ/L (21.0-32.0)
[2017-06-29 10:19] LABS: CREATININE 0.37 MG/DL (0.50-1.00)
[2017-06-29 12:03] VITALS: BP 116/87; PULSE 70; RESP 20; O2SAT 97
--- NOTE | 2017-06-29 13:22 | HHI.PR ---
Subjective Remarks Follow-up for hemorrhagic CVA. I asked the patient if she is okay and she nods slightly "yes". Objective Vitals Vital Signs Date Time Temp Pulse Resp B/P (MAP) Pulse Ox O2 Delivery O2 Flow Rate FiO2 06/29/17 12:03 70 20 116/87 (97) 97 06/29/17 08:39 95.6 84 18 142/97 (112) 98 06/28/17 20:00 98.6 87 18 149/97 (114) 99 06/28/17 17:16 76 20 149/96 (113) 94 I/O 06/28/17 06/28/17 06/28/17 06/29/17 06/29/17 06/29/17 07:00 15:00 23:00 07:00 15:00 23:00 Intake Total 1040 ml 400 ml 0 ml 680 ml Balance 1040 ml 400 ml 0 ml 680 ml Intake Oral 0 ml Tube Feeding 720 ml 240 ml 480 ml Tube Irrigant 160 ml Other 320 ml 200 ml # Voids 1 2 3 2 # Bowel Movements 0 1 0 1 Result Diagram: 06/29/17 0905 Objective Remarks GENERAL: Well nourished well-developed patient in no apparent distress. CARDIOVASCULAR: Regular rate and rhythm. RESPIRATORY: No accessory muscle use. Clear to auscultation bilaterally. GASTROINTESTINAL: Abdomen soft, non-tender, nondistended. MUSCULOSKELETAL: Swelling of the right hand improved from prior. NEUROLOGICAL: Awake and alert. Aphasic. Only weak grasp with left thumb and index finger. Cannot make a fist. Procedures Peg Tube placed 05/08/17 (Dr. De Los Santos) Urinary Catheter: No Vascular Central Line Catheter: No A/P Assessment and Plan Intracranial hemorrhage secondary to uncontrolled hypertension and hypertensive emergency Thalamic ICH with intraventricular extension. No surgical intervention per Dr. Wang. Neurology following, ok for discharge to rehab. Continue PT/OT/ST Dysphagia suspect secondary to intracranial bleed Post PEG placement 05/09/17. Patient initially pureed diet with honey thickened liquids, tsp by tsp, but reevaluated by speech therapy on 06/14 and made NPO as she had clinical symptoms of aspiration with all consistencies. Dietary following with recommendations as below: Jevity 1.5 boluses of 240mls @ 9AM, 1PM, & 6PM and 120mls @ 9PM. Flush 30mls water before and after each bolus feeding. Additional 100ml free water flush q6hrs. Hypertension emergency/HTN: Nifedipine 40 mg q6h (recently increased on 06/26) Lisinopril 40 mg daily Hydralazine 100 mg every 6 hours Catapres 0.3 mg patch weekly Metoprolol 100 mg twice daily Hydralazine prn for SBP >150. BP 142/97 this morning prior to Lisinopril and Metoprolol doses. Improved to 116/87 at noon. Will continue to monitor. If becomes persistently elevated again will likely need to add HCTZ back on. Febrile illness: Resolved. Could be secondary to occult infection or possible neurologic from CVA, hemorrhage CBC, BMP unremarkable 05/28 Chest x-ray indicated mild L lung atelectasis versus infiltrate. 05/31 Chest x-ray appears improved from prior; no focal consolidations noted. Urinalysis was normal Blood culture 05/28 NGTD S/p Levaquin 750 mg daily for total of 7 days Hypernatremia and hyperchloremia: Resolved. Likely to related to decreased by mouth intake. -S/p IVF -Monitor BMP periodically. Pre-renal azotemia: Resolved. Likely attributed to poor po intake. -S/p IVF -Continue free water flushes Hyperglycemia Hemoglobin A1c 6.2 Glucerna 1.5 for feeding Xeroderma on bilateral feet: Lac-Hydrin 12% Lotion continued. Oral thrush continued: Fluconazole 200 mg daily for 7 days complete GI Prophylaxis: Prevacid via PEG tube DVT Prophylaxis: SCDs. Chemical prophylaxis contraindicated secondary to intracranial hemorrhage Discharge Planning [facility]/23/17: [facility] Yuly Shafer Jun 29, 2017 13:22
[2017-06-29 17:11] VITALS: BP 139/97; PULSE 73; RESP 18; O2SAT 96
[2017-06-29 20:00] VITALS: BP 163/89; PULSE 91; RESP 20; TEMP 99.1; O2SAT 98
[2017-06-30] VITALS: BP 124/88; PULSE 67
[2017-06-30] MEDS: hydrALAZINE HCL 50 MG TAB PEG SCH ×4 (00:36→17:30)
[2017-06-30] MEDS: NIFEdipine 20 MG CAP PEG SCH ×4 (00:37→17:30)
[2017-06-30 03:42] VITALS: BP 147/90; PULSE 80
[2017-06-30 08:00] VITALS: BP 147/91; PULSE 84; RESP 18; TEMP 98.4; O2SAT 97
[2017-06-30] MEDS: METOPROLOL TARTRATE 100 MG TAB PEG SCH ×2 (09:16→20:10)
[2017-06-30] MEDS: LISINOPRIL 20 MG TAB PEG SCH (09:16)
[2017-06-30] MEDS: LANSOPRAZOLE SOLUTAB 30 MG TAB G-TUBE SCH (09:16)
[2017-06-30] MEDS: SENNOSIDES SYRUP 8.8 MG/5 ML CUP PEG SCH (09:16)
--- NOTE | 2017-06-30 09:42 | HHI.PR ---
Subjective Remarks Follow-up for hemorrhagic CVA, hypertension. Patient is aphasic. She nods slightly "yes" when I ask her if she is okay. Objective Vitals Vital Signs Date Time Temp Pulse Resp B/P (MAP) Pulse Ox O2 Delivery O2 Flow Rate FiO2 06/30/17 08:00 98.4 84 18 147/91 (109) 97 06/30/17 03:42 80 147/90 (109) 06/30/17 00:00 67 124/88 (100) 06/29/17 20:00 99.1 91 20 163/89 (113) 98 06/29/17 17:11 73 18 139/97 (111) 96 06/29/17 12:03 70 20 116/87 (97) 97 I/O 06/29/17 06/29/17 06/29/17 06/30/17 06/30/17 06/30/17 07:00 15:00 23:00 07:00 15:00 23:00 Intake Total 0 ml 680 ml 460 ml 440 ml Balance 0 ml 680 ml 460 ml 440 ml Intake Oral 0 ml Tube Feeding 480 ml 240 ml Other 200 ml 220 ml 440 ml # Voids 3 2 2 3 # Bowel Movements 0 1 0 1 Result Diagram: 06/29/17 0905 Objective Remarks GENERAL: Well nourished well-developed patient in no apparent distress. CARDIOVASCULAR: Regular rate and rhythm. 2/6 murmur loudest at LLSB. RESPIRATORY: No accessory muscle use. Clear to auscultation bilaterally. GASTROINTESTINAL: Abdomen soft, non-tender, nondistended. MUSCULOSKELETAL: 2+ left distal radial pulse. Swelling of the right forearm and hand. NEUROLOGICAL: Awake and alert. Aphasic. Only weak grasp of the Left hand. Cannot make a fist, but has mildly improved flexion of the last three digits of the Left hand. Procedures Peg Tube placed 05/08/17 (Dr. De Los Santos) Urinary Catheter: No Vascular Central Line Catheter: No A/P Assessment and Plan Intracranial hemorrhage secondary to uncontrolled hypertension and hypertensive emergency Thalamic ICH with intraventricular extension. No surgical intervention per Dr. Wang. Neurology following, ok for discharge to rehab. Continue PT/OT/ST Dysphagia suspect secondary to intracranial bleed Post PEG placement 05/09/17. Patient initially pureed diet with honey thickened liquids, tsp by tsp, but reevaluated by speech therapy on 06/14 and made NPO as she had clinical symptoms of aspiration with all consistencies. Dietary following with recommendations as below: Jevity 1.5 boluses of 240mls @ 9AM, 1PM, & 6PM and 120mls @ 9PM. Flush 30mls water before and after each bolus feeding. Additional 100ml free water flush q6hrs. Hypertension emergency/HTN: Nifedipine 40 mg q6h (recently increased on 06/26) Lisinopril 40 mg daily Hydralazine 100 mg every 6 hours Catapres 0.3 mg patch weekly Metoprolol 100 mg twice daily Hydralazine prn for SBP >150. 06/30: BP 147/91 this morning prior to Lisinopril and Metoprolol doses. Had intermittent normal BPs yesterday. Monitor BP q4h. If becomes persistently elevated again will likely need to add HCTZ back on. Need tight BP control due to ICH. Febrile illness: Resolved. Could be secondary to occult infection or possible neurologic from CVA, hemorrhage CBC, BMP unremarkable 05/28 Chest x-ray indicated mild L lung atelectasis versus infiltrate. 05/31 Chest x-ray appears improved from prior; no focal consolidations noted. Urinalysis was normal Blood culture 05/28 NGTD S/p Levaquin 750 mg daily for total of 7 days Hypernatremia and hyperchloremia: Resolved. Likely to related to decreased by mouth intake. -S/p IVF -Monitor BMP periodically. Pre-renal azotemia: Resolved. Likely attributed to poor po intake. -S/p IVF -Continue free water flushes Hyperglycemia Hemoglobin A1c 6.2 Glucerna 1.5 for feeding Xeroderma on bilateral feet: Lac-Hydrin 12% Lotion continued. Oral thrush continued: Fluconazole 200 mg daily for 7 days complete GI Prophylaxis: Prevacid via PEG tube DVT Prophylaxis: SCDs. Chemical prophylaxis contraindicated secondary to intracranial hemorrhage Discharge [facility]23[facility]17: [facility] Y[facility] Shafer Jun 30, 2017 09:42
[2017-06-30 20:00] VITALS: BP 144/102; PULSE 88; RESP 20; TEMP 99.8; O2SAT 99
[2017-06-30] MEDS: LACTIC ACID (AMMONIUM LACTATE) 12% LOTION 225 GM BTL TOPICAL SCH (20:10)
[2017-07-01] VITALS: BP 130/92; PULSE 69; RESP 20; TEMP 98.4; O2SAT 98
[2017-07-01] MEDS: hydrALAZINE HCL 50 MG TAB PEG SCH ×4 (00:06→17:22)
[2017-07-01] MEDS: NIFEdipine 20 MG CAP PEG SCH ×4 (00:07→17:21)
[2017-07-01 04:00] VITALS: BP 148/98; PULSE 78; RESP 18; TEMP 97; O2SAT 99
[2017-07-01 08:00] VITALS: BP 142/90; PULSE 74; RESP 16; TEMP 97.8; O2SAT 95
[2017-07-01] MEDS: LANSOPRAZOLE SOLUTAB 30 MG TAB G-TUBE SCH (08:38)
[2017-07-01] MEDS: SENNOSIDES SYRUP 8.8 MG/5 ML CUP PEG SCH (08:39)
[2017-07-01] MEDS: LISINOPRIL 20 MG TAB PEG SCH (08:39)
[2017-07-01] MEDS: METOPROLOL TARTRATE 100 MG TAB PEG SCH ×2 (08:39→20:52)
[2017-07-01] MEDS: LACTIC ACID (AMMONIUM LACTATE) 12% LOTION 225 GM BTL TOPICAL SCH ×2 (08:40→20:53)
--- NOTE | 2017-07-01 09:53 | HHI.PR ---
Subjective Remarks Follow-up for hemorrhagic CVA, hypertension. Patient nods her head "yes" when I ask if she is ok. Objective Vitals Vital Signs Date Time Temp Pulse Resp B/P (MAP) Pulse Ox O2 Delivery O2 Flow Rate FiO2 07/01/17 08:00 97.8 74 16 142/90 (107) 95 07/01/17 04:00 97.0 78 18 148/98 (115) 99 07/01/17 00:00 98.4 69 20 130/92 (105) 98 06/30/17 20:00 99.8 88 20 144/102 (116) 99 I/O 06/30/17 06/30/17 06/30/17 07/01/17 07/01/17 07/01/17 07:00 15:00 23:00 07:00 15:00 23:00 Intake Total 440 ml 1620 ml 160 ml Balance 440 ml 1620 ml 160 ml Tube Feeding 960 ml Tube Irrigant 340 ml 160 ml Other 440 ml 320 ml # Voids 3 2 2 # Bowel Movements 1 1 1 Result Diagram: 06/29/17 09 Objective Remarks GENERAL: Well nourished well-developed patient in no apparent distress. CARDIOVASCULAR: Regular rate and rhythm. 2/6 murmur over the L chest. RESPIRATORY: No accessory muscle use. Clear to auscultation bilaterally. GASTROINTESTINAL: Abdomen soft, non-tender, nondistended. MUSCULOSKELETAL: Swelling of the right forearm and hand. NEUROLOGICAL: Awake and alert. Aphasic. Only weak grasp of the Left hand. Cannot flex the left thumb and index finger. Procedures Peg Tube placed 05/08/17 (Dr. De Los Santos) Urinary Catheter: No Vascular Central Line Catheter: No A/P Assessment and Plan Intracranial hemorrhage secondary to uncontrolled hypertension and hypertensive emergency Thalamic ICH with intraventricular extension. No surgical intervention per Dr. Wang. Neurology following, ok for discharge to rehab. Continue PT/OT/ST Dysphagia suspect secondary to intracranial bleed Post PEG placement 05/09/17. Patient initially pureed diet with honey thickened liquids, tsp by tsp, but reevaluated by speech therapy on 06/14 and made NPO as she had clinical symptoms of aspiration with all consistencies. Dietary following with recommendations as below: Jevity 1.5 boluses of 240mls @ 9AM, 1PM, & 6PM and 120mls @ 9PM. Flush 30mls water before and after each bolus feeding. Additional 100ml free water flush q6hrs. Hypertension emergency/HTN: Nifedipine 40 mg q6h Lisinopril 40 mg daily Hydralazine 100 mg every 6 hours Catapres 0.3 mg patch weekly Metoprolol 100 mg twice daily Hydralazine prn for SBP >150. 07/01: SBP has maintained below 150, but has still been running predominantly in the 140s systolic and above 90 diastolic. Would be preferable to have around 130/80. Will restart HCTZ at 25 mg po daily and monitor BP q4h. Adjust as needed. Febrile illness: Resolved. Could be secondary to occult infection or possible neurologic from CVA, hemorrhage CBC, BMP unremarkable 05/28 Chest x-ray indicated mild L lung atelectasis versus infiltrate. 05/31 Chest x-ray appears improved from prior; no focal consolidations noted. Urinalysis was normal Blood culture 05/28 NGTD S/p Levaquin 750 mg daily for total of 7 days Hypernatremia and hyperchloremia: Resolved. Likely to related to decreased by mouth intake. -S/p IVF -Monitor BMP periodically. Pre-renal azotemia: Resolved. Likely attributed to poor po intake. -S/p IVF -Continue free water flushes Hyperglycemia Hemoglobin A1c 6.2 Glucerna 1.5 for feeding Xeroderma on bilateral feet: Lac-Hydrin 12% Lotion continued. Oral thrush continued: Fluconazole 200 mg daily for 7 days complete GI Prophylaxis: Prevacid via PEG tube DVT Prophylaxis: SCDs. Chemical prophylaxis contraindicated secondary to intracranial hemorrhage Discharge Planning 06/23/17: Referred to [facility]. Yuly Shafer Jul 01, 2017 09:53
[2017-07-01 11:30] VITALS: BP 124/86; PULSE 66; RESP 18; TEMP 97.6; O2SAT 97
[2017-07-01] MEDS: HYDROCHLOROTHIAZIDE 25 MG TAB PO SCH (11:42)
[2017-07-01 16:00] VITALS: BP 117/82; PULSE 70; RESP 18; TEMP 97.8; O2SAT 95
[2017-07-01 20:00] VITALS: BP 146/88; PULSE 85; RESP 20; TEMP 98.7; O2SAT 97
[2017-07-01] MEDS: ACETAMINOPHEN 325 MG TAB PEG PRN (20:53)
[2017-07-02] MEDS: NIFEdipine 20 MG CAP PEG SCH ×4 (00:30→17:59)
[2017-07-02] MEDS: hydrALAZINE HCL 50 MG TAB PEG SCH ×4 (00:30→17:59)
[2017-07-02 08:00] VITALS: BP 129/74; PULSE 74; RESP 18; TEMP 97; O2SAT 96
[2017-07-02] MEDS: METOPROLOL TARTRATE 100 MG TAB PEG SCH ×2 (09:26→21:10)
[2017-07-02] MEDS: SENNOSIDES SYRUP 8.8 MG/5 ML CUP PEG SCH (09:26)
[2017-07-02] MEDS: LISINOPRIL 20 MG TAB PEG SCH (09:26)
[2017-07-02] MEDS: HYDROCHLOROTHIAZIDE 25 MG TAB PO SCH (09:26)
[2017-07-02] MEDS: LANSOPRAZOLE SOLUTAB 30 MG TAB G-TUBE SCH (09:26)
[2017-07-02] MEDS: LACTIC ACID (AMMONIUM LACTATE) 12% LOTION 225 GM BTL TOPICAL SCH ×2 (09:27→21:11)
--- NOTE | 2017-07-02 11:01 | HHI.PR ---
Subjective Remarks Follow up for hemorrhagic CVA, HTN. No acute issues. Objective Vitals Vital Signs Date Time Temp Pulse Resp B/P (MAP) Pulse Ox O2 Delivery O2 Flow Rate FiO2 07/02/17 08:00 97.0 74 18 129/74 (92) 96 07/01/17 20:00 98.7 85 20 146/88 (107) 97 07/01/17 16:00 97.8 70 18 117/82 (94) 95 07/01/17 11:30 97.6 66 18 124/86 (99) 97 I/O 07/01/17 07/01/17 07/01/17 07/02/17 07/02/17 07/02/17 06:59 14:59 22:59 06:59 14:59 22:59 Intake Total 160 ml 680 ml 340 ml 380 ml Output Total 0 ml Balance 160 ml 680 ml 340 ml 380 ml Intake Oral 0 ml IV Total 0 ml Tube Feeding 480 ml 240 ml 240 ml Tube Irrigant 160 ml 200 ml 100 ml Other 140 ml Stool Total 0 ml # Voids 2 3 2 # Bowel Movements 1 Result Diagram: 06/29/17 09 Objective Remarks GENERAL: Well nourished well-developed patient in no apparent distress. CARDIOVASCULAR: Regular rate and rhythm. 2/6 murmur notable over LLSB. RESPIRATORY: No accessory muscle use. Clear to auscultation bilaterally. GASTROINTESTINAL: Abdomen soft, non-tender, nondistended. MUSCULOSKELETAL: Swelling of the right forearm and hand. NEUROLOGICAL: Awake and alert. Aphasic. Only weak grasp of the Left hand. Cannot flex the left thumb and index finger. Can lift left leg only slightly. Right sided hemiplegia. Procedures Peg Tube placed 05/08/17 (Dr. De Los Santos) Urinary Catheter: No Vascular Central Line Catheter: No A/P Assessment and Plan Intracranial hemorrhage secondary to uncontrolled hypertension and hypertensive emergency Thalamic ICH with intraventricular extension. No surgical intervention per Dr. Wang. Neurology following, ok for discharge to rehab. Continue PT/OT/ST Dysphagia suspect secondary to intracranial bleed Post PEG placement 05/09/17. Patient initially pureed diet with honey thickened liquids, tsp by tsp, but reevaluated by speech therapy on 06/14 and made NPO as she had clinical symptoms of aspiration with all consistencies. Dietary following with recommendations as below: Jevity 1.5 boluses of 240mls @ 9AM, 1PM, & 6PM and 120mls @ 9PM. Flush 30mls water before and after each bolus feeding. Additional 100ml free water flush q6hrs. Hypertension emergency/HTN: Improved. Nifedipine 40 mg q6h Lisinopril 40 mg daily Hydralazine 100 mg every 6 hours Catapres 0.3 mg patch weekly Metoprolol 100 mg twice daily Hydralazine prn for SBP >150. 07/01: HCTZ restarted at 25 mg po daily. 07/02: BP improving since starting HCTZ, normal this morning. Continue to monitor BP and adjust medications accordingly. Febrile illness: Resolved. Could be secondary to occult infection or possible neurologic from CVA, hemorrhage CBC, BMP unremarkable 05/28 Chest x-ray indicated mild L lung atelectasis versus infiltrate. 05/31 Chest x-ray appears improved from prior; no focal consolidations noted. Urinalysis was normal Blood culture 05/28 NGTD S/p Levaquin 750 mg daily for total of 7 days Hypernatremia and hyperchloremia: Resolved. Likely to related to decreased by mouth intake. -S/p IVF -Monitor BMP periodically. Pre-renal azotemia: Resolved. Likely attributed to poor po intake. -S/p IVF -Continue free water flushes Hyperglycemia Hemoglobin A1c 6.2 Glucerna 1.5 for feeding Xeroderma on bilateral feet: Lac-Hydrin 12% Lotion continued. Oral thrush continued: Fluconazole 200 mg daily for 7 days complete GI Prophylaxis: Prevacid via PEG tube DVT Prophylaxis: SCDs. Chemical prophylaxis contraindicated secondary to intracranial hemorrhage Discharge Planning 06/23/17: Referred to [facility]. Yuly Shafer Jul 02, 2017 11:01
[2017-07-02 12:15] VITALS: BP 112/90; PULSE 66; RESP 16
[2017-07-02 17:50] VITALS: BP 145/95; PULSE 65; RESP 18
[2017-07-02 20:00] VITALS: BP 131/96; PULSE 76; RESP 20; TEMP 98.8; O2SAT 100
[2017-07-03] VITALS (7 sets, daily range): BP systolic 119–156; BP diastolic 72–94; PULSE 62–93; RESP 16–20; TEMP 96.6–98.6; O2SAT 96–100
[2017-07-03] MEDS: NIFEdipine 20 MG CAP PEG SCH ×5 (00:23→23:49)
[2017-07-03] MEDS: hydrALAZINE HCL 50 MG TAB PEG SCH ×5 (00:23→23:49)
[2017-07-03] MEDS: METOPROLOL TARTRATE 100 MG TAB PEG SCH ×2 (09:44→21:01)
[2017-07-03] MEDS: LANSOPRAZOLE SOLUTAB 30 MG TAB G-TUBE SCH (09:44)
[2017-07-03] MEDS: LACTIC ACID (AMMONIUM LACTATE) 12% LOTION 225 GM BTL TOPICAL SCH ×2 (09:45→21:03)
[2017-07-03] MEDS: LISINOPRIL 20 MG TAB PEG SCH (09:45)
[2017-07-03] MEDS: HYDROCHLOROTHIAZIDE 25 MG TAB PO SCH (09:45)
[2017-07-03] MEDS: SENNOSIDES SYRUP 8.8 MG/5 ML CUP PEG SCH (09:45)
--- NOTE | 2017-07-03 11:22 | HHI.PR ---
Subjective Remarks Follow-up for hemorrhagic CVA, hypertension. Patient nods her head yes when I ask her if she is okay. Son at bedside. Objective Vitals Vital Signs Date Time Temp Pulse Resp B/P (MAP) Pulse Ox O2 Delivery O2 Flow Rate FiO2 07/03/17 09:02 98.0 80 16 123/79 (94) 99 07/03/17 04:00 96.6 74 16 142/89 (106) 98 07/03/17 00:00 96.9 69 20 156/94 (114) 96 07/02/17 20:00 98.8 76 20 131/96 (108) 100 07/02/17 17:50 65 18 145/95 (112) 07/02/17 12:15 66 16 112/90 (97) I/O 07/02/17 07/02/17 07/02/17 07/03/17 07/03/17 07/03/17 07:00 15:00 23:00 07:00 15:00 23:00 Intake Total 380 ml 920 ml 740 ml 200 ml Balance 380 ml 920 ml 740 ml 200 ml Intake Oral 0 ml 0 ml IV Total 0 ml Tube Feeding 240 ml 480 ml 480 ml Tube Irrigant 120 ml 260 ml 200 ml Other 140 ml 320 ml # Voids 2 8 1 # Bowel Movements 0 Result Diagram: 06/29/17904 Objective Remarks GENERAL: Well nourished well-developed patient in no apparent distress. CARDIOVASCULAR: Regular rate and rhythm. 2/6 murmur. RESPIRATORY: No accessory muscle use. Clear to auscultation bilaterally. GASTROINTESTINAL: Abdomen soft, non-tender, nondistended. MUSCULOSKELETAL: 2+ left distal radial pulse. Swelling of the right forearm and hand. No lower extremity edema bilaterally. NEUROLOGICAL: Awake and alert. Aphasic. Follows commands. Only weak grasp of the Left hand. Cannot flex the left thumb and index finger. Can lift left leg slightly off the bed. Right sided hemiplegia. Procedures Peg Tube placed 05/08/17 (Dr. De Los Santos) Urinary Catheter: No Vascular Central Line Catheter: No A/P Assessment and Plan Intracranial hemorrhage secondary to uncontrolled hypertension and hypertensive emergency Thalamic ICH with intraventricular extension. No surgical intervention per Dr. Wang. Neurology following, ok for discharge to rehab. Continue PT/OT/ST Dysphagia suspect secondary to intracranial bleed Post PEG placement 05/09/17. Patient initially pureed diet with honey thickened liquids, tsp by tsp, but reevaluated by speech therapy on 06/14 and made NPO as she had clinical symptoms of aspiration with all consistencies. Dietary following with recommendations as below: Jevity 1.5 boluses of 240mls @ 9AM, 1PM, & 6PM and 120mls @ 9PM. Flush 30mls water before and after each bolus feeding. Additional 100ml free water flush q6hrs. Hypertension emergency/HTN: Improved. Nifedipine 40 mg q6h Lisinopril 40 mg daily Hydralazine 100 mg every 6 hours Catapres 0.3 mg patch weekly Metoprolol 100 mg twice daily Hydralazine prn for SBP >150. 07/01: HCTZ restarted at 25 mg po daily. 07/03: BP wnl since 0900 this morning. Continue to monitor and adjust medication as needed. Febrile illness: Resolved. Could be secondary to occult infection or possible neurologic from CVA, hemorrhage CBC, BMP unremarkable 05/28 Chest x-ray indicated mild L lung atelectasis versus infiltrate. 05/31 Chest x-ray appears improved from prior; no focal consolidations noted. Urinalysis was normal Blood culture 05/28 NGTD S/p Levaquin 750 mg daily for total of 7 days Hypernatremia and hyperchloremia: Resolved. Likely to related to decreased by mouth intake. -S/p IVF -Monitor BMP periodically. Pre-renal azotemia: Resolved. Likely attributed to poor po intake. -S/p IVF -Continue free water flushes Hyperglycemia Hemoglobin A1c 6.2 Glucerna 1.5 for feeding Xeroderma on bilateral feet: Lac-Hydrin 12% Lotion continued. Oral thrush continued: Fluconazole 200 mg daily for 7 days complete GI Prophylaxis: Prevacid via PEG tube DVT Prophylaxis: SCDs. Chemical prophylaxis contraindicated secondary to intracranial hemorrhage [facility]charge Planning [facility]23/17: [facility] Yuly Shafer Jul 03, 2017 11:22
[2017-07-04] VITALS: BP 109/76; PULSE 65; RESP 20; TEMP 98.8; O2SAT 99
[2017-07-04 04:00] VITALS: BP 117/81; PULSE 68; RESP 20; TEMP 98.6; O2SAT 99
[2017-07-04] MEDS: hydrALAZINE HCL 50 MG TAB PEG SCH ×3 (05:53→17:35)
[2017-07-04] MEDS: NIFEdipine 20 MG CAP PEG SCH ×3 (05:53→17:36)
[2017-07-04] MEDS: SENNOSIDES SYRUP 8.8 MG/5 ML CUP PEG SCH (08:50)
[2017-07-04] MEDS: HYDROCHLOROTHIAZIDE 25 MG TAB PO SCH (08:50)
[2017-07-04] MEDS: LACTIC ACID (AMMONIUM LACTATE) 12% LOTION 225 GM BTL TOPICAL SCH ×2 (08:51→20:37)
[2017-07-04] MEDS: LISINOPRIL 20 MG TAB PEG SCH (08:51)
[2017-07-04] MEDS: METOPROLOL TARTRATE 100 MG TAB PEG SCH ×2 (08:51→20:37)
[2017-07-04] MEDS: LANSOPRAZOLE SOLUTAB 30 MG TAB G-TUBE SCH (08:51)
--- NOTE | 2017-07-04 11:35 | HHI.PR ---
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 Patient lying become full. Denies any new complaints. No change in clinical status. Objective Vitals Vital Signs Date Time Temp Pulse Resp B/P (MAP) Pulse Ox O2 Delivery O2 Flow Rate FiO2 07/04/17 04:00 98.6 68 20 117/81 (93) 99 07/04/17 00:00 98.8 65 20 109/76 (87) 99 07/03/17 20:00 98.6 93 20 121/72 (88) 97 07/03/17 18:39 78 16 143/91 (108) 07/03/17 16:35 98.3 76 18 137/86 (103) 99 07/03/17 13:03 98.0 62 20 119/87 (98) 100 I/O 07/03/17 07/03/17 07/03/17 07/04/17 07/04/17 07/04/17 07:00 15:00 23:00 07:00 15:00 23:00 Intake Total 200 ml 1220 ml 590 ml Balance 200 ml 1220 ml 590 ml Intake Oral 0 ml Tube Feeding 720 ml 240 ml Tube Irrigant 200 ml 180 ml 350 ml Other 320 ml # Voids 1 4 1 # Bowel Movements 1 Objective Remarks GENERAL: Well-developed, well-nourished, in no acute distress. Awake, responds minimally with head nods. HEENT: Head is normocephalic without any lesions or masses noted. Facial features are symmetric. Eyes: Conjunctivae were clear. CARDIAC: Regular rhythm, regular rate. S1/S2 are heard. 2 or 6 ejection, no gallops or rubs. LUNGS: Clear to auscultation bilaterally. No wheeze, rhonchi or rales. No use of accessory muscles on inspiration or expiration. ABDOMEN: Soft, nontender. Nondistended. Bowel sounds heard in all 4 quadrants. No organomegaly or masses. Negative rebound, negative guarding, PEG tube noted without any signs of infection EXTREMITIES: No edema, pulses are equal bilaterally. No cyanosis or clubbing NEUROLOGY: Patient is moving left upper extremity and able to move left foot. Patient unable to move right upper and lower extremity. Procedures Peg Tube placed 05/08/17 (Dr. De Los Santos) Urinary Catheter: No Vascular Central Line Catheter: No A/P Assessment and Plan Intracranial hemorrhage, 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 No surgical intervention per Dr. Wang, Neurology following, ok for discharge to rehab. Continue PT/OT/ST Patient is improving per therapy, they indicate patient would benefit from a acute care facility that could supply her more therapy than we can offer here Case management consulted for inpatient rehabilitation, no documentation from case management or inpatient rehabilitation as of yet Dysphagia suspect secondary to intracranial bleed, Post PEG placement 05/09/17. Speech therapy was recommended patient be nothing by mouth Speech therapy to continue to follow and advance diet per exam Dietary consulted and made recommendations for bolus feeding Hypertension emergency, stable Nifedipine 40 mg every 6 hours Lisinopril 40 mg daily Apresoline 100 mg every 6 hours Catapres TTS 3 patch Metoprolol 100 mg twice daily HCTZ 25 mg daily --Apresoline, clonidine, Vasotec as needed Hyperglycemia Hemoglobin A1c 6.2 Glucerna 1.5 bolus tube feeding Xeroderma on bilateral feet: Lac-Hydrin 12% Lotion continued. GI Prophylaxis: Prevacid via PEG tube DVT Prophylaxis: Sequential compression devices, chemical prophylaxis contraindicated secondary to intracranial hemorrhage Discharge Planning Discharge planning per case management Kayden Kelley Jul 04, 2017 11:35
[2017-07-04 12:50] VITALS: BP 98/62; PULSE 68; RESP 16; TEMP 98.4; O2SAT 99
[2017-07-04] MEDS: REMOVE OLD CATAPRES (CLONIDINE) PATCH T-DERMAL SCH (15:00)
[2017-07-04] MEDS: cloNIDine HCL 0.3 MG/24 HR PATCH T-DERMAL SCH (17:36)
[2017-07-04 19:15] VITALS: BP 119/79; PULSE 87; RESP 18; TEMP 99.1
[2017-07-04 20:00] VITALS: BP 119/79; PULSE 87; RESP 18; TEMP 99.1; O2SAT 97
[2017-07-05 01:43] VITALS: PULSE 96; TEMP 96.6; O2SAT 97
[2017-07-05] MEDS: NIFEdipine 20 MG CAP PEG SCH ×5 (06:10→23:41)
[2017-07-05] MEDS: hydrALAZINE HCL 50 MG TAB PEG SCH ×5 (06:10→23:41)
[2017-07-05 08:00] VITALS: BP 100/68; PULSE 89; RESP 20; TEMP 97.5; O2SAT 100
[2017-07-05] MEDS: METOPROLOL TARTRATE 100 MG TAB PEG SCH ×2 (09:09→21:03)
[2017-07-05] MEDS: SENNOSIDES SYRUP 8.8 MG/5 ML CUP PEG SCH (09:10)
[2017-07-05] MEDS: LISINOPRIL 20 MG TAB PEG SCH (09:10)
[2017-07-05] MEDS: LANSOPRAZOLE SOLUTAB 30 MG TAB G-TUBE SCH (09:10)
[2017-07-05] MEDS: HYDROCHLOROTHIAZIDE 25 MG TAB PO SCH (09:10)
[2017-07-05] MEDS: LACTIC ACID (AMMONIUM LACTATE) 12% LOTION 225 GM BTL TOPICAL SCH ×2 (09:16→21:00)
--- NOTE | 2017-07-05 11:24 | HHI.PR ---
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 Patient lying in bed working with occupational therapy. She is trying to speak. Patient is coming along better with improved function. Patient would benefit from more intensive inpatient rehabilitation Objective Vitals Vital Signs Date Time Temp Pulse Resp B/P (MAP) Pulse Ox O2 Delivery O2 Flow Rate FiO2 07/05/17 08:00 97.5 89 20 100/68 (79) 100 07/05/17 01:43 96.6 96 97 07/04/17 20:00 99.1 87 18 119/79 (92) 97 07/04/17 19:15 99.1 87 18 119/79 (92) 07/04/17 12:50 98.4 68 16 98/62 (74) 99 I/O 07/04/17 07/04/17 07/04/17 07/05/17 07/05/17 07/05/17 07:00 15:00 23:00 07:00 15:00 23:00 Intake Total 590 ml 680 ml 440 ml Output Total 480 ml Balance 590 ml 200 ml 440 ml Intake Oral 0 ml Tube Feeding 240 ml 480 ml 240 ml Tube Irrigant 350 ml 200 ml Other 200 ml Output Urine Total 0 ml Stool Total 0 ml Gastric Drainage Total 480 ml # Voids 1 4 2 # Bowel Movements 2 Objective Remarks GENERAL: Well-developed, well-nourished, in no acute distress. Awake, responds minimally with head nods. Trying to speak HEENT: Head is normocephalic without any lesions or masses noted. Facial features are symmetric. Eyes: Conjunctivae were clear. CARDIAC: Regular rhythm, regular rate. S1/S2 are heard. 2 or 6 ejection, no gallops or rubs. LUNGS: Clear to auscultation bilaterally. No wheeze, rhonchi or rales. No use of accessory muscles on inspiration or expiration. ABDOMEN: Soft, nontender. Nondistended. Bowel sounds heard in all 4 quadrants. No organomegaly or masses. Negative rebound, negative guarding, PEG tube noted without any signs of infection EXTREMITIES: No edema, pulses are equal bilaterally. No cyanosis or clubbing NEUROLOGY: Patient is moving left upper extremity and able to move left foot. Patient unable to move right upper and lower extremity. Procedures Peg Tube placed 05/08/17 (Dr. De Los Santos) Urinary Catheter: No Vascular Central Line Catheter: No A/P Assessment and Plan Intracranial hemorrhage, 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 No surgical intervention per Dr. Wang, Neurology following, ok for discharge to rehab. Continue PT/OT/ST Patient is improving per therapy, they indicate patient would benefit from a acute care facility that could supply her more therapy than we can offer here Case management consulted for inpatient rehabilitation, no documentation from case management or inpatient rehabilitation as of yet Dysphagia suspect secondary to intracranial bleed, Post PEG placement 05/09/17. Speech therapy was recommended patient be nothing by mouth Speech therapy to continue to follow and advance diet per exam Dietary consulted and made recommendations for bolus feeding Hypertension emergency, stable Nifedipine 40 mg every 6 hours Lisinopril 40 mg daily Apresoline 100 mg every 6 hours Catapres TTS 3 patch Metoprolol 100 mg twice daily HCTZ 25 mg daily --Apresoline, clonidine, Vasotec as needed Hyperglycemia Hemoglobin A1c 6.2 Glucerna 1.5 bolus tube feeding Xeroderma on bilateral feet: Lac-Hydrin 12% Lotion continued. GI Prophylaxis: Prevacid via PEG tube DVT Prophylaxis: Sequential compression devices, chemical prophylaxis contraindicated secondary to intracranial hemorrhage Discharge Planning Discharge planning per case management Kayden Kelley Jul 05, 2017 11:24
[2017-07-05 18:01] VITALS: BP 148/108; PULSE 82; RESP 18
[2017-07-05 20:00] VITALS: BP 157/84; PULSE 82; RESP 20; TEMP 98; O2SAT 98
[2017-07-06] MEDS: hydrALAZINE HCL 50 MG TAB PEG SCH ×3 (05:51→17:45)
[2017-07-06] MEDS: NIFEdipine 20 MG CAP PEG SCH ×3 (05:51→17:45)
[2017-07-06 08:00] VITALS: BP 165/72; PULSE 117; RESP 18; TEMP 99.9; O2SAT 95
[2017-07-06] MEDS: SENNOSIDES SYRUP 8.8 MG/5 ML CUP PEG SCH (08:08)
[2017-07-06] MEDS: METOPROLOL TARTRATE 100 MG TAB PEG SCH ×2 (08:08→22:36)
[2017-07-06] MEDS: LANSOPRAZOLE SOLUTAB 30 MG TAB G-TUBE SCH (08:08)
[2017-07-06] MEDS: HYDROCHLOROTHIAZIDE 25 MG TAB PO SCH (08:08)
[2017-07-06] MEDS: LISINOPRIL 20 MG TAB PEG SCH (08:09)
[2017-07-06] MEDS: LACTIC ACID (AMMONIUM LACTATE) 12% LOTION 225 GM BTL TOPICAL SCH ×2 (08:09→22:37)
--- NOTE | 2017-07-06 12:57 | HHI.PR ---
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 Patient lying in bed comfortably. Does not indicate any new complaints. Change in clinical status Objective Vitals Vital Signs Date Time Temp Pulse Resp B/P (MAP) Pulse Ox O2 Delivery O2 Flow Rate FiO2 07/06/17 08:00 99.9 117 18 165/72 (103) 95 07/05/17 20:00 98.0 82 20 157/84 (108) 98 07/05/17 18:01 82 18 148/108 (121) I/O 07/05/17 07/05/17 07/05/17 07/06/17 07/06/17 07/06/17 07:00 15:00 23:00 07:00 15:00 23:00 Intake Total 440 ml 810 ml 0 ml Output Total 1 ml Balance 440 ml 810 ml -1 ml Intake Oral 0 ml Tube Feeding 240 ml 490 ml Tube Irrigant 200 ml Other 320 ml Output Urine Total 1 ml # Voids 2 1 1 # Bowel Movements 1 2 Objective Remarks GENERAL: Well-developed, well-nourished, in no acute distress. Awake, responds minimally with head nods. Trying to speak HEENT: Head is normocephalic without any lesions or masses noted. Facial features are symmetric. Eyes: Conjunctivae were clear. CARDIAC: Regular rhythm, regular rate. S1/S2 are heard. 2 or 6 ejection, no gallops or rubs. LUNGS: Clear to auscultation bilaterally. No wheeze, rhonchi or rales. No use of accessory muscles on inspiration or expiration. ABDOMEN: Soft, nontender. Nondistended. Bowel sounds heard in all 4 quadrants. No organomegaly or masses. Negative rebound, negative guarding, PEG tube noted without any signs of infection EXTREMITIES: No edema, pulses are equal bilaterally. No cyanosis or clubbing NEUROLOGY: Patient is moving left upper extremity and able to move left foot. Patient unable to move right upper and lower extremity. Procedures Peg Tube placed 05/08/17 (Dr. De Los Santos) Urinary Catheter: No Vascular Central Line Catheter: No A/P Assessment and Plan Intracranial hemorrhage, 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 No surgical intervention per Dr. Wang, Neurology following, ok for discharge to rehab. Continue PT/OT/ST Patient is improving per therapy, they indicate patient would benefit from a acute care facility that could supply her more therapy than we can offer here Case management consulted for inpatient rehabilitation, no documentation from case management or inpatient rehabilitation as of yet Dysphagia suspect secondary to intracranial bleed, Post PEG placement 05/09/17. Speech therapy was recommended patient be nothing by mouth Speech therapy to continue to follow and advance diet per exam Dietary consulted and made recommendations for bolus feeding Hypertension emergency, stable Nifedipine 40 mg every 6 hours Lisinopril 40 mg daily Apresoline 100 mg every 6 hours Catapres TTS 3 patch Metoprolol 100 mg twice daily HCTZ 25 mg daily --Apresoline, clonidine, Vasotec as needed Hyperglycemia Hemoglobin A1c 6.2 Glucerna 1.5 bolus tube feeding Xeroderma on bilateral feet: Lac-Hydrin 12% Lotion continued. GI Prophylaxis: Prevacid via PEG tube DVT Prophylaxis: Sequential compression devices, chemical prophylaxis contraindicated secondary to intracranial hemorrhage Discharge Planning Discharge planning per case management Kayden Kelley Jul 06, 2017 12:57
[2017-07-06 20:00] VITALS: BP 156/92; PULSE 81; RESP 20; TEMP 98.6; O2SAT 100
[2017-07-07] MEDS: NIFEdipine 20 MG CAP PEG SCH ×4 (00:13→17:38)
[2017-07-07] MEDS: hydrALAZINE HCL 50 MG TAB PEG SCH ×4 (00:13→17:38)
[2017-07-07 08:00] VITALS: BP 136/80; PULSE 72; RESP 16; TEMP 97.7; O2SAT 96
[2017-07-07] MEDS: LANSOPRAZOLE SOLUTAB 30 MG TAB G-TUBE SCH (08:48)
[2017-07-07] MEDS: SENNOSIDES SYRUP 8.8 MG/5 ML CUP PEG SCH (08:48)
[2017-07-07] MEDS: METOPROLOL TARTRATE 100 MG TAB PEG SCH ×2 (08:48→21:06)
[2017-07-07] MEDS: LISINOPRIL 20 MG TAB PEG SCH (08:49)
[2017-07-07] MEDS: LACTIC ACID (AMMONIUM LACTATE) 12% LOTION 225 GM BTL TOPICAL SCH ×2 (08:49→21:06)
[2017-07-07] MEDS: HYDROCHLOROTHIAZIDE 25 MG TAB PO SCH (08:49)
--- NOTE | 2017-07-07 11:21 | HHI.PR ---
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 Patient does not indicate any new problems. She is laying in bed comfortable. No change in clinical status. Objective Vitals Vital Signs Date Time Temp Pulse Resp B/P (MAP) Pulse Ox O2 Delivery O2 Flow Rate FiO2 07/07/17 08:00 97.7 72 16 136/80 (98) 96 07/06/17 20:00 98.6 81 20 156/92 (113) 100 I/O 07/06/17 07/06/17 07/06/17 07/07/17 07/07/17 07/07/17 06:59 14:59 22:59 06:59 14:59 22:59 Intake Total 0 ml 1440 ml 260 ml Output Total 1 ml 0 ml Balance -1 ml 1440 ml 260 ml Intake Oral 0 ml 0 ml Tube Feeding 970 ml Other 470 ml 260 ml Output Urine Total 1 ml 0 ml # Voids 1 1 2 # Bowel Movements 2 Objective Remarks GENERAL: Well-developed, well-nourished, in no acute distress. Awake, responds minimally with head nods. Trying to speak HEENT: Head is normocephalic without any lesions or masses noted. Facial features are symmetric. Eyes: Conjunctivae were clear. CARDIAC: Regular rhythm, regular rate. S1/S2 are heard. 2 or 6 ejection, no gallops or rubs. LUNGS: Clear to auscultation bilaterally. No wheeze, rhonchi or rales. No use of accessory muscles on inspiration or expiration. ABDOMEN: Soft, nontender. Nondistended. Bowel sounds heard in all 4 quadrants. No organomegaly or masses. Negative rebound, negative guarding, PEG tube noted without any signs of infection EXTREMITIES: No edema, pulses are equal bilaterally. No cyanosis or clubbing NEUROLOGY: Patient is moving left upper extremity and able to move left foot. Patient unable to move right upper and lower extremity. Procedures Peg Tube placed 05/08/17 (Dr. De Los Santos) Urinary Catheter: No Vascular Central Line Catheter: No A/P Assessment and Plan Intracranial hemorrhage, 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 No surgical intervention per Dr. Wang, Neurology following, ok for discharge to rehab. Continue PT/OT/ST Patient is improving per therapy, they indicate patient would benefit from a acute care facility that could supply her more therapy than we can offer here Case management consulted for inpatient rehabilitation, no documentation from case management or inpatient rehabilitation as of yet Dysphagia suspect secondary to intracranial bleed, Post PEG placement 05/09/17. Speech therapy was recommended patient be nothing by mouth Speech therapy to continue to follow and advance diet per exam Dietary consulted and made recommendations for bolus feeding Hypertension emergency, stable Nifedipine 40 mg every 6 hours Lisinopril 40 mg daily Apresoline 100 mg every 6 hours Catapres TTS 3 patch Metoprolol 100 mg twice daily HCTZ 25 mg twice daily --KCl 25 mEq daily --Apresoline, clonidine, Vasotec as needed Hyperglycemia Hemoglobin A1c 6.2 Glucerna 1.5 bolus tube feeding Xeroderma on bilateral feet: Lac-Hydrin 12% Lotion continued. GI Prophylaxis: Prevacid via PEG tube DVT Prophylaxis: Sequential compression devices, chemical prophylaxis contraindicated secondary to intracranial hemorrhage Discharge Planning Discharge planning per case management Kayden Kelley Jul 07, 2017 11:21
[2017-07-07 12:25] VITALS: BP 112/78; PULSE 60; RESP 18; O2SAT 94
[2017-07-07] MEDS: POTASSIUM CHLORIDE 25 MEQ EFFERVESCENT TAB PEG SCH (14:51)
[2017-07-07] MEDS: HYDROCHLOROTHIAZIDE 25 MG TAB PEG SCH (17:38)
[2017-07-07 17:43] VITALS: BP 129/84; PULSE 80; RESP 20; O2SAT 95
[2017-07-07 20:00] VITALS: BP 135/73; PULSE 88; RESP 20; TEMP 99.5; O2SAT 99
[2017-07-08] MEDS: hydrALAZINE HCL 50 MG TAB PEG SCH ×4 (00:31→16:39)
[2017-07-08] MEDS: NIFEdipine 20 MG CAP PEG SCH ×4 (00:32→16:39)
[2017-07-08 06:46] LABS: CALCIUM 9.8 MG/DL (8.5-10.1)
[2017-07-08 06:47] LABS: BICARBONATE 30.4 MEQ/L (21.0-32.0)
[2017-07-08 06:50] LABS: CREATININE 0.47 MG/DL (0.50-1.00)
[2017-07-08] MEDS: POTASSIUM CHLORIDE 25 MEQ EFFERVESCENT TAB PEG SCH (07:21)
[2017-07-08] MEDS: LISINOPRIL 20 MG TAB PEG SCH (07:21)
[2017-07-08] MEDS: METOPROLOL TARTRATE 100 MG TAB PEG SCH ×2 (07:21→20:45)
[2017-07-08] MEDS: LANSOPRAZOLE SOLUTAB 30 MG TAB G-TUBE SCH (07:21)
[2017-07-08] MEDS: SENNOSIDES SYRUP 8.8 MG/5 ML CUP PEG SCH (07:21)
[2017-07-08] MEDS: HYDROCHLOROTHIAZIDE 25 MG TAB PEG SCH ×2 (07:21→16:38)
[2017-07-08] MEDS: LACTIC ACID (AMMONIUM LACTATE) 12% LOTION 225 GM BTL TOPICAL SCH ×2 (07:22→20:45)
--- NOTE | 2017-07-08 08:32 | HHI.PR ---
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 Patient resting carefully. Denies any new complaints. Patient would benefit from inpatient rehabilitation, Objective Vitals Vital Signs Date Time Temp Pulse Resp B/P (MAP) Pulse Ox O2 Delivery O2 Flow Rate FiO2 07/07/17 20:00 99.5 88 20 135/73 (93) 99 07/07/17 17:43 80 20 129/84 (99) 95 07/07/17 12:25 60 18 112/78 (89) 94 I/O 07/07/17 07/07/17 07/07/17 07/08/17 07/08/17 07/08/17 07:00 15:00 23:00 07:00 15:00 23:00 Intake Total 260 ml 1420 ml 200 ml Output Total 0 ml Balance 260 ml 1420 ml 200 ml Intake Oral 0 ml Tube Feeding 960 ml Other 260 ml 460 ml 200 ml Output Urine Total 0 ml # Voids 2 2 # Bowel Movements 0 Result Diagram: 07/08/17 0615 Objective Remarks GENERAL: Well-developed, well-nourished, in no acute distress. Awake, responds minimally with head nods. Trying to speak HEENT: Head is normocephalic without any lesions or masses noted. Facial features are symmetric. Eyes: Conjunctivae were clear. CARDIAC: Regular rhythm, regular rate. S1/S2 are heard. 2 or 6 ejection, no gallops or rubs. LUNGS: Clear to auscultation bilaterally. No wheeze, rhonchi or rales. No use of accessory muscles on inspiration or expiration. ABDOMEN: Soft, nontender. Nondistended. Bowel sounds heard in all 4 quadrants. No organomegaly or masses. Negative rebound, negative guarding, PEG tube noted without any signs of infection EXTREMITIES: No edema, pulses are equal bilaterally. No cyanosis or clubbing NEUROLOGY: Patient is moving left upper extremity and able to move left foot. Patient unable to move right upper and lower extremity. Procedures Peg Tube placed 05/08/17 (Dr. De Los Santos) Urinary Catheter: No Vascular Central Line Catheter: No A/P Assessment and Plan Intracranial hemorrhage, 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 No surgical intervention per Dr. Wang, Neurology following, ok for discharge to rehab. Continue PT/OT/ST Patient is improving per therapy, they indicate patient would benefit from a acute care facility that could supply her more therapy than we can offer here Case management consulted for inpatient rehabilitation, Dysphagia suspect secondary to intracranial bleed, Post PEG placement 05/09/17. Speech therapy was recommended patient be nothing by mouth Speech therapy to continue to follow and advance diet per exam Dietary consulted and made recommendations for bolus feeding Hypertension emergency, stable Nifedipine 40 mg every 6 hours Lisinopril 40 mg daily Apresoline 100 mg every 6 hours Catapres TTS 3 patch Metoprolol 100 mg twice daily HCTZ 25 mg twice daily --KCl 25 mEq daily --Apresoline, clonidine, Vasotec as needed Hyperglycemia Hemoglobin A1c 6.2 Glucerna 1.5 bolus tube feeding Xeroderma on bilateral feet: Lac-Hydrin 12% Lotion continued. GI Prophylaxis: Prevacid via PEG tube DVT Prophylaxis: Sequential compression devices, chemical prophylaxis contraindicated secondary to intracranial hemorrhage Discharge Planning Discharge planning per case management Kayden Kelley Jul 08, 2017 08:32
[2017-07-08 08:47] VITALS: BP 127/79; PULSE 75; RESP 16; TEMP 98; O2SAT 100
[2017-07-08 20:00] VITALS: BP 148/90; PULSE 81; RESP 20; TEMP 98.8; O2SAT 99
[2017-07-09] MEDS: NIFEdipine 20 MG CAP PEG SCH ×4 (00:09→17:20)
[2017-07-09] MEDS: hydrALAZINE HCL 50 MG TAB PEG SCH ×4 (00:09→17:21)
[2017-07-09] MEDS: SENNOSIDES SYRUP 8.8 MG/5 ML CUP PEG SCH (07:59)
[2017-07-09] MEDS: LISINOPRIL 20 MG TAB PEG SCH (07:59)
[2017-07-09] MEDS: POTASSIUM CHLORIDE 25 MEQ EFFERVESCENT TAB PEG SCH (07:59)
[2017-07-09] MEDS: HYDROCHLOROTHIAZIDE 25 MG TAB PEG SCH ×2 (08:00→17:21)
[2017-07-09] MEDS: LANSOPRAZOLE SOLUTAB 30 MG TAB G-TUBE SCH (08:00)
[2017-07-09] MEDS: METOPROLOL TARTRATE 100 MG TAB PEG SCH ×2 (08:00→21:40)
[2017-07-09] MEDS: LACTIC ACID (AMMONIUM LACTATE) 12% LOTION 225 GM BTL TOPICAL SCH ×2 (08:00→21:40)
[2017-07-09 08:32] VITALS: BP 134/73; PULSE 56; RESP 16; TEMP 97.2; O2SAT 100
[2017-07-09 11:17] VITALS: BP 132/82; PULSE 80
--- NOTE | 2017-07-09 13:46 | HHI.PR ---
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 Patient lying in bed comfortable. No new complaints. Objective Vitals Vital Signs Date Time Temp Pulse Resp B/P (MAP) Pulse Ox O2 Delivery O2 Flow Rate FiO2 07/09/17 11:17 80 132/82 (99) 07/09/17 08:32 97.2 56 16 134/73 (93) 100 07/08/17 20:00 98.8 81 20 148/90 (109) 99 I/O 07/08/17 07/08/17 07/08/17 07/09/17 07/09/17 07/09/17 07:00 15:00 23:00 07:00 15:00 23:00 Intake Total 200 ml Balance 200 ml Other 200 ml # Voids 2 1 5 # Bowel Movements 0 0 0 Result Diagram: 07/08/17 0615 Objective Remarks GENERAL: Well-developed, well-nourished, in no acute distress. Awake, responds minimally with head nods. Trying to speak HEENT: Head is normocephalic without any lesions or masses noted. Facial features are symmetric. Eyes: Conjunctivae were clear. CARDIAC: Regular rhythm, regular rate. S1/S2 are heard. 2 or 6 ejection, no gallops or rubs. LUNGS: Clear to auscultation bilaterally. No wheeze, rhonchi or rales. No use of accessory muscles on inspiration or expiration. ABDOMEN: Soft, nontender. Nondistended. Bowel sounds heard in all 4 quadrants. No organomegaly or masses. Negative rebound, negative guarding, PEG tube noted without any signs of infection EXTREMITIES: No edema, pulses are equal bilaterally. No cyanosis or clubbing NEUROLOGY: Patient is moving left upper extremity and able to move left foot. Patient unable to move right upper and lower extremity. Procedures Peg Tube placed 05/08/17 (Dr. De Los Santos) Urinary Catheter: No Vascular Central Line Catheter: No A/P Assessment and Plan Intracranial hemorrhage, 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 No surgical intervention per Dr. Wang, Neurology following, ok for discharge to rehab. Continue PT/OT/ST Patient is improving per therapy, they indicate patient would benefit from a acute care facility that could supply her more therapy than we can offer here Case management consulted for inpatient rehabilitation, Dysphagia suspect secondary to intracranial bleed, Post PEG placement 05/09/17. Speech therapy was recommended patient be nothing by mouth Speech therapy to continue to follow and advance diet per exam Dietary consulted and made recommendations for bolus feeding Hypertension emergency, stable Nifedipine 40 mg every 6 hours Lisinopril 40 mg daily Apresoline 100 mg every 6 hours Catapres TTS 3 patch Metoprolol 100 mg twice daily HCTZ 25 mg twice daily --KCl 25 mEq daily --Apresoline, clonidine, Vasotec as needed Hyperglycemia Hemoglobin A1c 6.2 Glucerna 1.5 bolus tube feeding Xeroderma on bilateral feet: Lac-Hydrin 12% Lotion continued. GI Prophylaxis: Prevacid via PEG tube DVT Prophylaxis: Sequential compression devices, chemical prophylaxis contraindicated secondary to intracranial hemorrhage Discharge Planning Discharge planning per case management Kayden Kelley Jul 09, 2017 13:46
[2017-07-09 20:00] VITALS: BP 111/81; PULSE 69; RESP 16; TEMP 97.3; O2SAT 99
[2017-07-10] MEDS: hydrALAZINE HCL 50 MG TAB PEG SCH ×5 (05:15→23:03)
[2017-07-10] MEDS: NIFEdipine 20 MG CAP PEG SCH ×5 (05:15→23:06)
[2017-07-10] MEDS: POTASSIUM CHLORIDE 25 MEQ EFFERVESCENT TAB PEG SCH (07:55)
[2017-07-10] MEDS: LISINOPRIL 20 MG TAB PEG SCH (07:55)
[2017-07-10] MEDS: SENNOSIDES SYRUP 8.8 MG/5 ML CUP PEG SCH (07:56)
[2017-07-10] MEDS: LACTIC ACID (AMMONIUM LACTATE) 12% LOTION 225 GM BTL TOPICAL SCH ×2 (07:56→23:09)
[2017-07-10] MEDS: METOPROLOL TARTRATE 100 MG TAB PEG SCH ×2 (07:56→23:03)
[2017-07-10] MEDS: HYDROCHLOROTHIAZIDE 25 MG TAB PEG SCH ×2 (07:56→16:26)
[2017-07-10] MEDS: LANSOPRAZOLE SOLUTAB 30 MG TAB G-TUBE SCH (07:56)
[2017-07-10 08:00] VITALS: BP 108/66; PULSE 68; RESP 18; TEMP 98.1; O2SAT 96
[2017-07-10 10:17] VITALS: BP 128/84; PULSE 68
--- NOTE | 2017-07-10 10:45 | HHI.PR ---
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 Patient lying in bed carefully. Does not indicate any new complaints. Still awaiting input back on patient to go to acute inpatient rehabilitation since she is improving. Objective Vitals Vital Signs Date Time Temp Pulse Resp B/P (MAP) Pulse Ox O2 Delivery O2 Flow Rate FiO2 07/10/17 10:17 68 128/84 (99) 07/10/17 08:00 98.1 68 18 108/66 (80) 96 07/09/17 20:00 97.3 69 16 111/81 (91) 99 07/09/17 11:17 80 132/82 (99) I/O 07/09/17 07/09/17 07/09/17 07/10/17 07/10/17 07/10/17 07:00 15:00 23:00 07:00 15:00 23:00 Intake Total 1130 ml Balance 1130 ml Tube Feeding 720 ml Other 410 ml # Voids 5 2 2 # Bowel Movements 0 0 0 Result Diagram: 07/08/17 0615 Objective Remarks GENERAL: Well-developed, well-nourished, in no acute distress. Awake, responds minimally with head nods. Trying to speak HEENT: Head is normocephalic without any lesions or masses noted. Facial features are symmetric. Eyes: Conjunctivae were clear. CARDIAC: Regular rhythm, regular rate. S1/S2 are heard. 2 or 6 ejection, no gallops or rubs. LUNGS: Clear to auscultation bilaterally. No wheeze, rhonchi or rales. No use of accessory muscles on inspiration or expiration. ABDOMEN: Soft, nontender. Nondistended. Bowel sounds heard in all 4 quadrants. No organomegaly or masses. Negative rebound, negative guarding, PEG tube noted without any signs of infection EXTREMITIES: No edema, pulses are equal bilaterally. No cyanosis or clubbing NEUROLOGY: Patient is moving left upper extremity and able to move left foot. Patient unable to move right upper and lower extremity. Procedures Peg Tube placed 05/08/17 (Dr. De Los Santos) Urinary Catheter: No Vascular Central Line Catheter: No A/P Assessment and Plan Intracranial hemorrhage, 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 No surgical intervention per Dr. Wang, Neurology following, ok for discharge to rehab. Continue PT/OT/ST Patient is improving per therapy, they indicate patient would benefit from a acute care facility that could supply her more therapy than we can offer here Case management consulted for inpatient rehabilitation, Dysphagia suspect secondary to intracranial bleed, Post PEG placement 05/09/17. Speech therapy was recommended patient be nothing by mouth Speech therapy to continue to follow and advance diet per exam Dietary consulted and made recommendations for bolus feeding Hypertension emergency, stable Nifedipine 40 mg every 6 hours Lisinopril 40 mg daily Apresoline 100 mg every 6 hours Catapres TTS 3 patch Metoprolol 100 mg twice daily HCTZ 25 mg twice daily --KCl 25 mEq daily --Apresoline, clonidine, Vasotec as needed Hyperglycemia Hemoglobin A1c 6.2 Glucerna 1.5 bolus tube feeding Xeroderma on bilateral feet: Lac-Hydrin 12% Lotion continued. GI Prophylaxis: Prevacid via PEG tube DVT Prophylaxis: Sequential compression devices, chemical prophylaxis contraindicated secondary to intracranial hemorrhage Discharge Planning Discharge planning per case management Kayden Kelley Jul 10, 2017 10:45
[2017-07-10 20:30] VITALS: BP 152/112; PULSE 98; RESP 18; TEMP 98.3; O2SAT 93
[2017-07-11] MEDS: hydrALAZINE HCL 50 MG TAB PEG SCH ×4 (05:16→23:23)
[2017-07-11] MEDS: NIFEdipine 20 MG CAP PEG SCH ×4 (05:17→23:23)
[2017-07-11 08:27] VITALS: BP 126/74; PULSE 76; RESP 16; TEMP 98; O2SAT 100
[2017-07-11] MEDS: HYDROCHLOROTHIAZIDE 25 MG TAB PEG SCH ×2 (08:38→17:44)
[2017-07-11] MEDS: SENNOSIDES SYRUP 8.8 MG/5 ML CUP PEG SCH (08:38)
[2017-07-11] MEDS: POTASSIUM CHLORIDE 25 MEQ EFFERVESCENT TAB PEG SCH (08:39)
[2017-07-11] MEDS: LISINOPRIL 20 MG TAB PEG SCH (08:39)
[2017-07-11] MEDS: LANSOPRAZOLE SOLUTAB 30 MG TAB G-TUBE SCH (08:39)
[2017-07-11] MEDS: METOPROLOL TARTRATE 100 MG TAB PEG SCH ×2 (08:39→20:11)
[2017-07-11] MEDS: LACTIC ACID (AMMONIUM LACTATE) 12% LOTION 225 GM BTL TOPICAL SCH ×2 (08:40→20:11)
--- NOTE | 2017-07-11 11:23 | HHI.PR ---
Subjective Remarks Follow-up for hemorrhagic CVA, hypertension. Nods head "yes" when I ask her if she is ok. Objective Vitals Vital Signs Date Time Temp Pulse Resp B/P (MAP) Pulse Ox O2 Delivery O2 Flow Rate FiO2 07/11/17 08:27 98.0 76 16 126/74 (91) 100 07/10/17 20:30 98.3 98 18 152/112 (125) 93 I/O 07/10/17 07/10/17 07/10/17 07/11/17 07/11/17 07/11/17 07:00 15:00 23:00 07:00 15:00 23:00 Intake Total 340 ml 100 ml Output Total 1 ml Balance 339 ml 100 ml Tube Feeding 240 ml Other 100 ml 100 ml Stool Total 1 ml # Voids 2 4 1 # Bowel Movements 0 Result Diagram: 07/08/17 0615 Objective Remarks GENERAL: Well nourished well-developed patient in no apparent distress. CARDIOVASCULAR: Regular rate and rhythm. 2/6 murmur over aortic region. RESPIRATORY: No accessory muscle use. Clear to auscultation bilaterally. GASTROINTESTINAL: Abdomen soft, non-tender, nondistended. MUSCULOSKELETAL: Swelling of the right forearm and hand. NEUROLOGICAL: Awake and alert. Aphasic. Only weak grasp of the Left hand. Improved flexion of the left index finger. Procedures Peg Tube placed 05/08/17 (Dr. De Los Santos) Urinary Catheter: No Vascular Central Line Catheter: No A/P Assessment and Plan Intracranial hemorrhage secondary to uncontrolled hypertension and hypertensive emergency Thalamic ICH with intraventricular extension. No surgical intervention per Dr. Wang. Neurology following, ok for discharge to rehab. Continue PT/OT/ST Dysphagia suspect secondary to intracranial bleed Post PEG placement 05/09/17. Patient initially pureed diet with honey thickened liquids, tsp by tsp, but reevaluated by speech therapy on 06/14 and made NPO as she had clinical symptoms of aspiration with all consistencies. Dietary following with recommendations as below: Jevity 1.5 boluses of 240mls @ 9AM, 1PM, & 6PM and 120mls @ 9PM. Flush 30mls water before and after each bolus feeding. Additional 100ml free water flush q6hrs. Hypertension emergency/HTN: Improved. Nifedipine 40 mg q6h Lisinopril 40 mg daily Hydralazine 100 mg every 6 hours Catapres 0.3 mg patch weekly Metoprolol 100 mg twice daily HCTZ 25 mg bid with KCl 25 mEq daily. Hydralazine prn for SBP >150. Continue to monitor and adjust medication as needed. Febrile illness: Resolved. Could be secondary to occult infection or possible neurologic from CVA, hemorrhage 05/28 Chest x-ray indicated mild L lung atelectasis versus infiltrate. 05/31 Chest x-ray appears improved from prior; no focal consolidations noted. Urinalysis was normal Blood culture 05/28 NGTD S/p Levaquin 750 mg daily for total of 7 days Hypernatremia and hyperchloremia: Resolved. Likely to related to decreased by mouth intake. -S/p IVF -Monitor BMP periodically. Pre-renal azotemia: Recurrent. BUN 20 on 07/08. Cr normal. -S/p IVF -Continue free water flushes Hyperglycemia Hemoglobin A1c 6.2 Glucerna 1.5 for feeding Xeroderma on bilateral feet: Lac-Hydrin 12% Lotion continued. Oral thrush: S/p Fluconazole treatment GI Prophylaxis: Prevacid via PEG tube DVT Prophylaxis: SCDs. Chemical prophylaxis contraindicated secondary to intracranial hemorrhage Discharge Planning 06/23/17: [facility] Yuly Shafer Jul 11, 2017 11:23
[2017-07-11] MEDS: REMOVE OLD CATAPRES (CLONIDINE) PATCH T-DERMAL SCH (14:33)
[2017-07-11] MEDS: cloNIDine HCL 0.3 MG/24 HR PATCH T-DERMAL SCH (14:33)
[2017-07-11 20:00] VITALS: BP 136/87; PULSE 75; RESP 20; TEMP 98.1; O2SAT 98
[2017-07-12] MEDS: hydrALAZINE HCL 50 MG TAB PEG SCH ×4 (05:06→23:11)
[2017-07-12] MEDS: NIFEdipine 20 MG CAP PEG SCH ×4 (05:06→23:11)
[2017-07-12] MEDS: LANSOPRAZOLE SOLUTAB 30 MG TAB G-TUBE SCH (08:45)
[2017-07-12] MEDS: METOPROLOL TARTRATE 100 MG TAB PEG SCH ×2 (08:45→20:05)
[2017-07-12] MEDS: LISINOPRIL 20 MG TAB PEG SCH (08:45)
[2017-07-12] MEDS: POTASSIUM CHLORIDE 25 MEQ EFFERVESCENT TAB PEG SCH (08:45)
[2017-07-12] MEDS: HYDROCHLOROTHIAZIDE 25 MG TAB PEG SCH ×2 (08:45→17:14)
[2017-07-12] MEDS: SENNOSIDES SYRUP 8.8 MG/5 ML CUP PEG SCH (08:45)
[2017-07-12] MEDS: LACTIC ACID (AMMONIUM LACTATE) 12% LOTION 225 GM BTL TOPICAL SCH ×2 (08:46→20:13)
[2017-07-12 09:34] VITALS: BP 126/73; PULSE 68; RESP 16; TEMP 97.6; O2SAT 100
--- NOTE | 2017-07-12 11:16 | HHI.PR ---
Subjective Remarks Follow-up for hemorrhagic CVA, hypertension. No acute issues. Physical therapist working with patient when I enter the room. Objective Vitals Vital Signs Date Time Temp Pulse Resp B/P (MAP) Pulse Ox O2 Delivery O2 Flow Rate FiO2 07/12/17 09:34 97.6 68 16 126/73 (90) 100 07/11/17 20:00 98.1 75 20 136/87 (103) 98 I/O 07/11/17 07/11/17 07/11/17 07/12/17 07/12/17 07/12/17 07:00 15:00 23:00 07:00 15:00 23:00 Intake Total 100 ml 1130 ml 0 ml Balance 100 ml 1130 ml 0 ml Intake Oral 0 ml Tube Feeding 720 ml Other 100 ml 410 ml # Voids 1 1 2 # Bowel Movements 1 Result Diagram: 07/08/17 0615 Objective Remarks GENERAL: Well nourished well-developed patient in no apparent distress. CARDIOVASCULAR: Regular rate and rhythm. RESPIRATORY: No accessory muscle use. Clear to auscultation bilaterally. GASTROINTESTINAL: Abdomen soft, non-tender, nondistended. MUSCULOSKELETAL: Swelling of the right forearm and hand. NEUROLOGICAL: Awake and alert. Aphasic. Only weak grasp of the Left hand. Improved flexion of the left index finger. Procedures Peg Tube placed 05/08/17 (Dr. De Los Santos) Urinary Catheter: No Vascular Central Line Catheter: No A/P Assessment and Plan Intracranial hemorrhage secondary to uncontrolled hypertension and hypertensive emergency Thalamic ICH with intraventricular extension. No surgical intervention per Dr. Wang. Neurology following, ok for discharge to rehab. Continue PT/OT/ST Dysphagia suspect secondary to intracranial bleed Post PEG placement 05/09/17. Patient initially pureed diet with honey thickened liquids, tsp by tsp, but reevaluated by speech therapy on 06/14 and made NPO as she had clinical symptoms of aspiration with all consistencies. Dietary following with recommendations as below: Jevity 1.5 boluses of 240mls @ 9AM, 1PM, & 6PM and 120mls @ 9PM. Flush 30mls water before and after each bolus feeding. Additional 100ml free water flush q6hrs. Hypertension emergency/HTN: Improved. Nifedipine 40 mg q6h Lisinopril 40 mg daily Hydralazine 100 mg every 6 hours Catapres 0.3 mg patch weekly Metoprolol 100 mg twice daily HCTZ 25 mg bid with KCl 25 mEq daily. Hydralazine prn for SBP >150. Continue to monitor and adjust medication as needed. Febrile illness: Resolved. Could be secondary to occult infection or possible neurologic from CVA, hemorrhage 05/28 Chest x-ray indicated mild L lung atelectasis versus infiltrate. 05/31 Chest x-ray appears improved from prior; no focal consolidations noted. Urinalysis was normal Blood culture 05/28 NGTD S/p Levaquin 750 mg daily for total of 7 days Hypernatremia and hyperchloremia: Resolved. Likely to related to decreased by mouth intake. -S/p IVF -Monitor BMP periodically. Pre-renal azotemia: Recurrent. BUN 20 on 07/08. Cr normal. -S/p IVF -Continue free water flushes Hyperglycemia Hemoglobin A1c 6.2 Glucerna 1.5 for feeding Xeroderma on bilateral feet: Lac-Hydrin 12% Lotion continued. Oral thrush: S/p Fluconazole treatment GI Prophylaxis: Prevacid via PEG tube DVT Prophylaxis: SCDs. Chemical prophylaxis contraindicated secondary to intracranial hemorrhage Discharge Planning 06/23/17: Referred to [facility]. Yuly Shafer Jul 12, 2017 11:16
[2017-07-12 20:00] VITALS: BP 117/75; PULSE 74; RESP 20; TEMP 97.2; O2SAT 100
[2017-07-12 23:10] VITALS: BP 113/79; PULSE 56
[2017-07-13] MEDS: hydrALAZINE HCL 50 MG TAB PEG SCH ×3 (05:20→18:33)
[2017-07-13] MEDS: NIFEdipine 20 MG CAP PEG SCH ×3 (05:20→18:33)
[2017-07-13 08:00] VITALS: BP 129/90; PULSE 91; RESP 16; TEMP 98.4; O2SAT 100
[2017-07-13] MEDS: METOPROLOL TARTRATE 100 MG TAB PEG SCH ×2 (08:17→20:39)
[2017-07-13] MEDS: LISINOPRIL 20 MG TAB PEG SCH (08:18)
[2017-07-13] MEDS: LANSOPRAZOLE SOLUTAB 30 MG TAB G-TUBE SCH (08:18)
[2017-07-13] MEDS: SENNOSIDES SYRUP 8.8 MG/5 ML CUP PEG SCH (08:18)
[2017-07-13] MEDS: POTASSIUM CHLORIDE 25 MEQ EFFERVESCENT TAB PEG SCH (08:18)
[2017-07-13] MEDS: HYDROCHLOROTHIAZIDE 25 MG TAB PEG SCH ×2 (08:18→18:33)
[2017-07-13] MEDS: LACTIC ACID (AMMONIUM LACTATE) 12% LOTION 225 GM BTL TOPICAL SCH ×2 (08:18→20:40)
--- NOTE | 2017-07-13 10:27 | HHI.PR ---
Subjective Remarks Follow-up for hemorrhagic CVA, hypertension. Patient aphasic but nods slightly "yes" when I ask her if she is ok. Objective Vitals Vital Signs Date Time Temp Pulse Resp B/P (MAP) Pulse Ox O2 Delivery O2 Flow Rate FiO2 07/13/17 08:00 98.4 91 16 129/90 (103) 100 07/12/17 23:10 56 113/79 (90) 07/12/17 20:00 97.2 74 20 117/75 (89) 100 I/O 07/12/17 07/12/17 07/12/17 07/13/17 07/13/17 07/13/17 07:00 15:00 23:00 07:00 15:00 23:00 Intake Total 0 ml 690 ml Output Total 240 ml Balance 0 ml -240 ml 690 ml Intake Oral 0 ml Tube Feeding 240 ml Tube Irrigant 450 ml Gastric Drainage Total 240 ml # Voids 2 2 3 # Bowel Movements 1 Objective Remarks GENERAL: Well nourished well-developed patient in no apparent distress. CARDIOVASCULAR: Regular rate and rhythm. Murmur over LLSB. RESPIRATORY: No accessory muscle use. Clear to auscultation bilaterally. GASTROINTESTINAL: Abdomen soft, non-tender, nondistended. MUSCULOSKELETAL: Swelling of the right forearm; glove over R hand. NEUROLOGICAL: Awake and alert. Aphasic. Only weak grasp of the Left hand although slightly stronger than prior exams. Procedures Peg Tube placed 05/08/17 (Dr. De Los Santos) Urinary Catheter: No Vascular Central Line Catheter: No A/P Assessment and Plan Intracranial hemorrhage secondary to uncontrolled hypertension and hypertensive emergency Thalamic ICH with intraventricular extension. No surgical intervention per Dr. Wang. Neurology following, ok for discharge to rehab. Continue PT/OT/ST Dysphagia suspect secondary to intracranial bleed Post PEG placement 05/09/17. Patient initially pureed diet with honey thickened liquids, tsp by tsp, but reevaluated by speech therapy on 06/14 and made NPO as she had clinical symptoms of aspiration with all consistencies. Dietary following with recommendations as below: Jevity 1.5 boluses of 240mls @ 9AM, 1PM, & 6PM and 120mls @ 9PM. Flush 30mls water before and after each bolus feeding. Additional 100ml free water flush q6hrs. Hypertension emergency/HTN: Improved. Nifedipine 40 mg q6h Lisinopril 40 mg daily Hydralazine 100 mg every 6 hours Catapres 0.3 mg patch weekly Metoprolol 100 mg twice daily HCTZ 25 mg bid with KCl 25 mEq daily. Hydralazine prn for SBP >150. Continue to monitor and adjust medication as needed. Febrile illness: Resolved. Could be secondary to occult infection or possible neurologic from CVA, hemorrhage 05/28 Chest x-ray indicated mild L lung atelectasis versus infiltrate. 05/31 Chest x-ray appears improved from prior; no focal consolidations noted. Urinalysis was normal Blood culture 05/28 NGTD S/p Levaquin 750 mg daily for total of 7 days Hypernatremia and hyperchloremia: Resolved. Likely to related to decreased by mouth intake. -S/p IVF -Monitor BMP periodically. Pre-renal azotemia: Recurrent. BUN 20 on 07/08. Cr normal. -S/p IVF -Continue free water flushes Hyperglycemia Hemoglobin A1c 6.2 Glucerna 1.5 for feeding Xeroderma on bilateral feet: Lac-Hydrin 12% Lotion continued. Oral thrush: S/p Fluconazole treatment GI Prophylaxis: Prevacid via PEG tube DVT Prophylaxis: SCDs. Chemical prophylaxis contraindicated secondary to intracranial hemorrhage Discharge Planning 06/23/17: [facility] Yuly Shafer Jul 13, 2017 10:27
[2017-07-13 20:00] VITALS: BP 168/108; PULSE 78; RESP 20; TEMP 98.7; O2SAT 98
[2017-07-14] MEDS: NIFEdipine 20 MG CAP PEG SCH ×4 (00:21→17:03)
[2017-07-14] MEDS: hydrALAZINE HCL 50 MG TAB PEG SCH ×4 (00:21→17:04)
[2017-07-14 08:00] VITALS: BP 112/73; PULSE 81; RESP 16; TEMP 98; O2SAT 99
[2017-07-14] MEDS: LANSOPRAZOLE SOLUTAB 30 MG TAB G-TUBE SCH (08:53)
[2017-07-14] MEDS: METOPROLOL TARTRATE 100 MG TAB PEG SCH ×2 (08:53→20:31)
[2017-07-14] MEDS: HYDROCHLOROTHIAZIDE 25 MG TAB PEG SCH ×2 (08:53→17:03)
[2017-07-14] MEDS: LISINOPRIL 20 MG TAB PEG SCH (08:53)
[2017-07-14] MEDS: SENNOSIDES SYRUP 8.8 MG/5 ML CUP PEG SCH (08:53)
[2017-07-14] MEDS: POTASSIUM CHLORIDE 25 MEQ EFFERVESCENT TAB PEG SCH (08:53)
[2017-07-14] MEDS: LACTIC ACID (AMMONIUM LACTATE) 12% LOTION 225 GM BTL TOPICAL SCH ×2 (08:54→20:34)
[2017-07-14 12:00] VITALS: BP 121/73; PULSE 74; RESP 16; TEMP 98.4; O2SAT 98
--- NOTE | 2017-07-14 14:06 | HHI.PR ---
Subjective Remarks Follow-up for hemorrhagic CVA, hypertension. No changes. Objective Vitals Vital Signs Date Time Temp Pulse Resp B/P (MAP) Pulse Ox O2 Delivery O2 Flow Rate FiO2 07/14/17 12:00 98.4 74 16 121/73 (89) 98 07/14/17 08:00 98.0 81 16 112/73 (86) 99 07/13/17 20:00 98.7 78 20 168/108 (128) 98 I/O 07/13/17 07/13/17 07/13/17 07/14/17 07/14/17 07/14/17 07:00 15:00 23:00 07:00 15:00 23:00 Intake Total 690 ml 690 ml Balance 690 ml 690 ml Tube Feeding 240 ml Tube Irrigant 450 ml 450 ml Other 240 ml # Voids 3 3 3 # Bowel Movements 1 Objective Remarks GENERAL: Well nourished well-developed patient in no apparent distress. CARDIOVASCULAR: Regular rate and rhythm. Murmur over LLSB. RESPIRATORY: No accessory muscle use. Clear to auscultation bilaterally. GASTROINTESTINAL: Abdomen soft, non-tender, nondistended. MUSCULOSKELETAL: Swelling of the right hand and forearm. NEUROLOGICAL: Awake and alert. Aphasic. Only weak grasp of the Left hand. Procedures Peg Tube placed 05/08/17 (Dr. De Los Santos) Urinary Catheter: No Vascular Central Line Catheter: No A/P Assessment and Plan Intracranial hemorrhage secondary to uncontrolled hypertension and hypertensive emergency Thalamic ICH with intraventricular extension. No surgical intervention per Dr. Wang. Neurology following, ok for discharge to rehab. Continue PT/OT/ST Dysphagia suspect secondary to intracranial bleed Post PEG placement 05/09/17. Patient initially pureed diet with honey thickened liquids, tsp by tsp, but reevaluated by speech therapy on 06/14 and made NPO as she had clinical symptoms of aspiration with all consistencies. Dietary following with recommendations as below: Jevity 1.5 boluses of 240mls @ 9AM, 1PM, & 6PM and 120mls @ 9PM. Flush 30mls water before and after each bolus feeding. Additional 100ml free water flush q6hrs. Hypertension emergency/HTN: Improved. Nifedipine 40 mg q6h Lisinopril 40 mg daily Hydralazine 100 mg every 6 hours Catapres 0.3 mg patch weekly Metoprolol 100 mg twice daily HCTZ 25 mg bid with KCl 25 mEq daily. Hydralazine prn for SBP >150. Continue to monitor and adjust medication as needed. -07/14: Hypotensive this afternoon but MAP intact. Continue to monitor. If regularly occurs, may need to adjust medication. Febrile illness: Resolved. Could be secondary to occult infection or possible neurologic from CVA, hemorrhage 05/28 Chest x-ray indicated mild L lung atelectasis versus infiltrate. 05/31 Chest x-ray appears improved from prior; no focal consolidations noted. Urinalysis was normal Blood culture 05/28 NGTD S/p Levaquin 750 mg daily for total of 7 days Hypernatremia and hyperchloremia: Resolved. Likely to related to decreased by mouth intake. -S/p IVF -Monitor BMP periodically. Pre-renal azotemia: Recurrent. BUN 20 on 07/08. Cr normal. -S/p IVF -Continue free water flushes Hyperglycemia Hemoglobin A1c 6.2 Glucerna 1.5 for feeding Xeroderma on bilateral feet: Lac-Hydrin 12% Lotion continued. Oral thrush: S/p Fluconazole treatment GI Prophylaxis: Prevacid via PEG tube DVT Prophylaxis: SCDs. Chemical prophylaxis contraindicated secondary to intracranial hemorrhage Discharge Planning 06/23/17: Referred to [facility]. Yuly Shafer Jul 14, 2017 14:05
[2017-07-14 16:00] VITALS: BP 97/69; PULSE 87; RESP 16; TEMP 97.4; O2SAT 99
[2017-07-14 20:00] VITALS: BP 139/85; PULSE 99; RESP 16; TEMP 99.7; O2SAT 98
[2017-07-15] MEDS: NIFEdipine 20 MG CAP PEG SCH ×5 (00:06→23:49)
[2017-07-15] MEDS: hydrALAZINE HCL 50 MG TAB PEG SCH ×5 (00:06→23:45)
[2017-07-15 08:00] VITALS: BP 132/88; PULSE 18; RESP 18; TEMP 98; O2SAT 96
[2017-07-15] MEDS: SENNOSIDES SYRUP 8.8 MG/5 ML CUP PEG SCH (09:00)
[2017-07-15] MEDS: LANSOPRAZOLE SOLUTAB 30 MG TAB G-TUBE SCH (10:12)
[2017-07-15] MEDS: HYDROCHLOROTHIAZIDE 25 MG TAB PEG SCH ×2 (10:12→18:22)
[2017-07-15] MEDS: METOPROLOL TARTRATE 100 MG TAB PEG SCH ×2 (10:12→20:58)
[2017-07-15] MEDS: POTASSIUM CHLORIDE 25 MEQ EFFERVESCENT TAB PEG SCH (10:12)
[2017-07-15] MEDS: LISINOPRIL 20 MG TAB PEG SCH (10:13)
[2017-07-15] MEDS: LACTIC ACID (AMMONIUM LACTATE) 12% LOTION 225 GM BTL TOPICAL SCH ×2 (10:14→20:58)
--- NOTE | 2017-07-15 10:42 | HHI.PR ---
Subjective Remarks Follow-up or hemorrhagic CVA, hypertension. Patient makes eye contact but does not respond to questions even by nodding her head today. Objective Vitals Vital Signs Date Time Temp Pulse Resp B/P (MAP) Pulse Ox O2 Delivery O2 Flow Rate FiO2 07/15/17 08:00 98.0 18 18 132/88 (103) 96 07/14/17 20:00 99.7 99 16 139/85 (103) 98 07/14/17 16:00 97.4 87 16 97/69 (78) 99 07/14/17 12:00 98.4 74 16 121/73 (89) 98 I/O 07/14/17 07/14/17 07/14/17 07/15/17 07/15/17 07/15/17 07:00 15:00 23:00 07:00 15:00 23:00 # Voids 3 4 2 # Bowel Movements 1 1 0 Objective Remarks GENERAL: Well nourished well-developed patient in no apparent distress. CARDIOVASCULAR: Regular rate and rhythm. Murmur over LLSB. RESPIRATORY: No accessory muscle use. Clear to auscultation bilaterally although decreased over R side. GASTROINTESTINAL: Abdomen soft, non-tender, nondistended. MUSCULOSKELETAL: Swelling of the right hand and forearm. NEUROLOGICAL: Awake and alert. Aphasic. Only weak grasp of the Left hand. Procedures Peg Tube placed 05/08/17 (Dr. De Los Santos) Urinary Catheter: No Vascular Central Line Catheter: No A/P Assessment and Plan Intracranial hemorrhage secondary to uncontrolled hypertension and hypertensive emergency Thalamic ICH with intraventricular extension. No surgical intervention per Dr. Wang. Neurology following, ok for discharge to rehab. Continue PT/OT/ST Dysphagia suspect secondary to intracranial bleed Post PEG placement 05/09/17. Patient initially pureed diet with honey thickened liquids, tsp by tsp, but reevaluated by speech therapy on 06/14 and made NPO as she had clinical symptoms of aspiration with all consistencies. Dietary following with recommendations as below: Jevity 1.5 boluses of 240mls @ 9AM, 1PM, & 6PM and 120mls @ 9PM. Flush 30mls water before and after each bolus feeding. Additional 100ml free water flush q6hrs. Hypertension emergency/HTN: HTN controlled. Nifedipine 40 mg q6h Lisinopril 40 mg daily Hydralazine 100 mg every 6 hours Catapres 0.3 mg patch weekly Metoprolol 100 mg twice daily HCTZ 25 mg bid with KCl 25 mEq daily. Hydralazine prn for SBP >150. Continue to monitor and adjust medication as needed. Febrile illness: Resolved. Could be secondary to occult infection or possible neurologic from CVA, hemorrhage 05/28 Chest x-ray indicated mild L lung atelectasis versus infiltrate. 05/31 Chest x-ray appears improved from prior; no focal consolidations noted. Urinalysis was normal Blood culture 05/28 NGTD S/p Levaquin 750 mg daily for total of 7 days Hypernatremia and hyperchloremia: Resolved. Likely to related to decreased by mouth intake. -S/p IVF -Monitor BMP periodically. Pre-renal azotemia: Recurrent. BUN 20 on 07/08. Cr normal. -S/p IVF -Continue free water flushes Hyperglycemia Hemoglobin A1c 6.2 Glucerna 1.5 for feeding Xeroderma on bilateral feet: Lac-Hydrin 12% Lotion continued. Oral thrush: S/p Fluconazole treatment GI Prophylaxis: Prevacid via PEG tube DVT Prophylaxis: SCDs. Chemical prophylaxis contraindicated secondary to intracranial hemorrhage Discharge Planning 06/23/17: Referred to [facility]. Yuly Shafer Jul 15, 2017 10:42
[2017-07-15 13:14] VITALS: BP 112/81; PULSE 61; RESP 16
[2017-07-15 17:15] VITALS: BP 125/84; PULSE 77; RESP 16
[2017-07-15 20:00] VITALS: BP 152/98; PULSE 75; RESP 20; TEMP 98.3; O2SAT 98
[2017-07-16] MEDS: NIFEdipine 20 MG CAP PEG SCH ×4 (05:15→23:42)
[2017-07-16] MEDS: hydrALAZINE HCL 50 MG TAB PEG SCH ×4 (05:15→23:42)
[2017-07-16 08:58] VITALS: BP 131/85; PULSE 92; RESP 20; TEMP 98; O2SAT 100
[2017-07-16] MEDS: SENNOSIDES SYRUP 8.8 MG/5 ML CUP PEG SCH (09:00)
--- NOTE | 2017-07-16 09:17 | HHI.PR ---
Subjective Remarks Follow-up for hemorrhagic CVA, hypertension. No acute issues. Objective Vitals Vital Signs Date Time Temp Pulse Resp B/P (MAP) Pulse Ox O2 Delivery O2 Flow Rate FiO2 07/16/17 08:58 98.0 92 20 131/85 (100) 100 07/15/17 20:00 98.3 75 20 152/98 (116) 98 07/15/17 17:15 77 16 125/84 (98) 07/15/17 13:14 61 16 112/81 (91) I/O 07/15/17 07/15/17 07/15/17 07/16/17 07/16/17 07/16/17 07:00 15:00 23:00 07:00 15:00 23:00 Intake Total 920 ml 300 ml 0 ml Balance 920 ml 300 ml 0 ml Intake Oral 0 ml Tube Feeding 480 ml 240 ml Tube Irrigant 120 ml 60 ml Other 320 ml # Voids 2 1 # Bowel Movements 0 1 Objective Remarks GENERAL: Well nourished well-developed patient in no apparent distress. CARDIOVASCULAR: Regular rate and rhythm. 3/6 murmur loudest over LLSB. RESPIRATORY: No accessory muscle use. Clear to auscultation bilaterally. GASTROINTESTINAL: Abdomen soft, non-tender, nondistended. MUSCULOSKELETAL: Swelling of the right hand and forearm. 2+ left distal radial pulse. NEUROLOGICAL: Awake and alert. Aphasic. 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 Procedures Peg Tube placed 05/08/17 (Dr. De Los Santos) Urinary Catheter: No Vascular Central Line Catheter: No A/P Assessment and Plan Intracranial hemorrhage secondary to uncontrolled hypertension and hypertensive emergency Thalamic ICH with intraventricular extension. No surgical intervention per Dr. Wang. Neurology following, ok for discharge to rehab. Continue PT/OT/ST Dysphagia suspect secondary to intracranial bleed Post PEG placement 05/09/17. Patient initially pureed diet with honey thickened liquids, tsp by tsp, but reevaluated by speech therapy on 06/14 and made NPO as she had clinical symptoms of aspiration with all consistencies. Dietary following with recommendations as below: Jevity 1.5 boluses of 240mls @ 9AM, 1PM, & 6PM and 120mls @ 9PM. Flush 30mls water before and after each bolus feeding. Additional 100ml free water flush q6hrs. Hypertension emergency/HTN: HTN controlled. Nifedipine 40 mg q6h Lisinopril 40 mg daily Hydralazine 100 mg every 6 hours Catapres 0.3 mg patch weekly Metoprolol 100 mg twice daily HCTZ 25 mg bid with KCl 25 mEq daily. Hydralazine prn for SBP >150. Continue to monitor and adjust medication as needed. Febrile illness: Resolved. Could be secondary to occult infection or possible neurologic from CVA, hemorrhage 05/28 Chest x-ray indicated mild L lung atelectasis versus infiltrate. 05/31 Chest x-ray appears improved from prior; no focal consolidations noted. Urinalysis was normal Blood culture 05/28 NGTD S/p Levaquin 750 mg daily for total of 7 days Hypernatremia and hyperchloremia: Resolved. Likely to related to decreased by mouth intake. -S/p IVF -Monitor BMP periodically. Pre-renal azotemia: Recurrent. BUN 20 on 07/08. Cr normal. -S/p IVF -Continue free water flushes Hyperglycemia Hemoglobin A1c 6.2 Glucerna 1.5 for feeding Xeroderma on bilateral feet: Lac-Hydrin 12% Lotion continued. Oral thrush: S/p Fluconazole treatment GI Prophylaxis: Prevacid via PEG tube DVT Prophylaxis: SCDs. Chemical prophylaxis contraindicated secondary to intracranial hemorrhage Discharge Planning 06/23/17: [facility]. Yuly Shafer Jul 16, 2017 09:17
[2017-07-16] MEDS: METOPROLOL TARTRATE 100 MG TAB PEG SCH ×2 (09:39→20:54)
[2017-07-16] MEDS: LANSOPRAZOLE SOLUTAB 30 MG TAB G-TUBE SCH (09:39)
[2017-07-16] MEDS: HYDROCHLOROTHIAZIDE 25 MG TAB PEG SCH ×2 (09:39→18:24)
[2017-07-16] MEDS: POTASSIUM CHLORIDE 25 MEQ EFFERVESCENT TAB PEG SCH (09:39)
[2017-07-16] MEDS: LISINOPRIL 20 MG TAB PEG SCH (09:39)
[2017-07-16] MEDS: LACTIC ACID (AMMONIUM LACTATE) 12% LOTION 225 GM BTL TOPICAL SCH ×2 (09:40→20:54)
[2017-07-16 12:44] VITALS: BP 123/86; PULSE 67; RESP 18
[2017-07-16 18:21] VITALS: BP 110/75; PULSE 74; RESP 16
[2017-07-16 20:00] VITALS: BP 100/71; PULSE 92; RESP 20; TEMP 98.1; O2SAT 97
[2017-07-17] MEDS: hydrALAZINE HCL 50 MG TAB PEG SCH ×3 (05:17→17:27)
[2017-07-17] MEDS: NIFEdipine 20 MG CAP PEG SCH ×3 (05:18→17:26)
[2017-07-17 08:57] VITALS: BP 120/74; PULSE 68; RESP 20; TEMP 98; O2SAT 100
[2017-07-17] MEDS: SENNOSIDES SYRUP 8.8 MG/5 ML CUP PEG SCH (09:00)
[2017-07-17] MEDS: LANSOPRAZOLE SOLUTAB 30 MG TAB G-TUBE SCH (09:04)
[2017-07-17] MEDS: POTASSIUM CHLORIDE 25 MEQ EFFERVESCENT TAB PEG SCH (09:04)
[2017-07-17] MEDS: METOPROLOL TARTRATE 100 MG TAB PEG SCH ×2 (09:04→21:09)
[2017-07-17] MEDS: HYDROCHLOROTHIAZIDE 25 MG TAB PEG SCH ×2 (09:04→17:27)
[2017-07-17] MEDS: LISINOPRIL 20 MG TAB PEG SCH (09:04)
[2017-07-17] MEDS: LACTIC ACID (AMMONIUM LACTATE) 12% LOTION 225 GM BTL TOPICAL SCH ×2 (09:06→21:00)
--- NOTE | 2017-07-17 09:12 | HHI.PR ---
Subjective Remarks Follow-up for hemorrhagic CVA, hypertension. Objective Vitals Vital Signs Date Time Temp Pulse Resp B/P (MAP) Pulse Ox O2 Delivery O2 Flow Rate FiO2 07/17/17 08:57 98.0 68 20 120/74 (89) 100 07/16/17 20:00 98.1 92 20 100/71 (81) 97 07/16/17 18:21 74 16 110/75 (87) 07/16/17 12:44 67 18 123/86 (98) I/O 07/16/17 07/16/17 07/16/17 07/17/17 07/17/17 07/17/17 07:00 15:00 23:00 07:00 15:00 23:00 Intake Total 0 ml 760 ml 620 ml Balance 0 ml 760 ml 620 ml Intake Oral 0 ml 0 ml Tube Feeding 480 ml 240 ml Tube Irrigant 120 ml Other 160 ml 380 ml # Voids 1 2 # Bowel Movements 1 Objective Remarks GENERAL: Well nourished well-developed patient in no apparent distress sleeping when I enter the room. CARDIOVASCULAR: Regular rate and rhythm. RESPIRATORY: No accessory muscle use. Clear to auscultation, but cannot adequately assess RLL as patient does not take a deep breath. GASTROINTESTINAL: Abdomen soft, non-tender, nondistended. NEUROLOGICAL: [place], awake and alert. Aphasic. Weak grasp Left hand. Procedures Peg Tube placed 05/08/17 (Dr. De Los Santos) Urinary Catheter: No Vascular Central Line Catheter: No A/P Assessment and Plan Intracranial hemorrhage Secondary to uncontrolled hypertension and hypertensive emergency Thalamic ICH with intraventricular extension. No surgical intervention per Dr. Wang. Neurology following, ok for discharge to rehab. Continue PT/OT/ST Dysphagia suspect secondary to intracranial bleed Post PEG placement 05/09/17. Patient initially pureed diet with honey thickened liquids, tsp by tsp, but reevaluated by speech therapy on 06/14 and made NPO as she had clinical symptoms of aspiration with all consistencies. Dietary following with recommendations as below: Jevity 1.5 boluses of 240mls @ 9AM, 1PM, & 6PM and 120mls @ 9PM. Flush 30mls water before and after each bolus feeding. Additional 100ml free water flush q6hrs. Hypertension emergency/HTN: HTN controlled. Nifedipine 40 mg q6h Lisinopril 40 mg daily Hydralazine 100 mg every 6 hours Catapres 0.3 mg patch weekly Metoprolol 100 mg twice daily HCTZ 25 mg bid with KCl 25 mEq daily. Hydralazine prn for SBP >150. Continue to monitor and adjust medication as needed. Febrile illness: Resolved. Could be secondary to occult infection or possible neurologic from CVA, hemorrhage 05/28 Chest x-ray indicated mild L lung atelectasis versus infiltrate. 05/31 Chest x-ray appears improved from prior; no focal consolidations noted. Urinalysis was normal Blood culture 05/28 NGTD S/p Levaquin 750 mg daily for total of 7 days Hypernatremia and hyperchloremia: Resolved. Likely to related to decreased by mouth intake. -S/p IVF -Monitor BMP periodically. Pre-renal azotemia: Recurrent. BUN 20 on 07/08. Cr normal. -S/p IVF -Continue free water flushes Hyperglycemia Hemoglobin A1c 6.2 Glucerna 1.5 for feeding Xeroderma on bilateral feet: Lac-Hydrin 12% Lotion continued. Oral thrush: S/p Fluconazole treatment GI Prophylaxis: Prevacid via PEG tube DVT Prophylaxis: SCDs. Chemical prophylaxis contraindicated secondary to intracranial hemorrhage Discharge Planning [facility]/23[facility]17: [facility] Yuly Shaefr Jul 17, 2017 09:12
[2017-07-17 12:43] VITALS: BP 106/75; PULSE 64; RESP 18
[2017-07-17 17:25] VITALS: BP 117/78; PULSE 73; RESP 16
[2017-07-17 20:00] VITALS: BP 147/102; PULSE 86; RESP 20; TEMP 98.7; O2SAT 96
[2017-07-18] MEDS: hydrALAZINE HCL 50 MG TAB PEG SCH ×5 (00:34→23:18)
[2017-07-18] MEDS: NIFEdipine 20 MG CAP PEG SCH ×5 (00:34→23:18)
--- NOTE | 2017-07-18 07:50 | HHI.PR ---
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 Patient is lying in bed resting comfortably. Denies any new complaints today. Objective Vitals Vital Signs Date Time Temp Pulse Resp B/P (MAP) Pulse Ox O2 Delivery O2 Flow Rate FiO2 07/17/17 20:00 98.7 86 20 147/102 (117) 96 07/17/17 17:25 73 16 117/78 (91) 07/17/17 12:43 64 18 106/75 (85) 07/17/17 08:57 98.0 68 20 120/74 (89) 100 I/O 07/17/17 07/17/17 07/17/17 07/18/17 07/18/17 07/18/17 07:00 15:00 23:00 07:00 15:00 23:00 Intake Total 620 ml 440 ml Output Total 0 ml 0 ml Balance 620 ml 0 ml 440 ml Intake Oral 0 ml 0 ml Tube Feeding 240 ml 240 ml Other 380 ml 200 ml Output Urine Total 0 ml Stool Total 0 ml 0 ml # Voids 2 4 # Bowel Movements 3 Objective Remarks GENERAL: Well-developed, well-nourished, in no acute distress. Awake, responds minimally with head nods. Trying to speak HEENT: Head is normocephalic without any lesions or masses noted. Facial features are symmetric. Eyes: Conjunctivae were clear. CARDIAC: Regular rhythm, regular rate. S1/S2 are heard. 2/6 ejection, no gallops or rubs. LUNGS: Clear to auscultation bilaterally. No wheeze, rhonchi or rales. No use of accessory muscles on inspiration or expiration. ABDOMEN: Soft, nontender. Nondistended. Bowel sounds heard in all 4 quadrants. No organomegaly or masses. Negative rebound, negative guarding, PEG tube noted without any signs of infection EXTREMITIES: No edema, pulses are equal bilaterally. No cyanosis or clubbing NEUROLOGY: Patient is moving left upper extremity and able to move left foot. Patient unable to move right upper and lower extremity. Procedures Peg Tube placed 05/08/17 (Dr. De Los Santos) Urinary Catheter: No Vascular Central Line Catheter: No A/P Assessment and Plan Intracranial hemorrhage, 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 No surgical intervention per Dr. Wang, Neurology following, ok for discharge to rehab. Continue PT/OT/ST Patient is improving per therapy, they indicate patient would benefit from a acute care facility that could supply her more therapy than we can offer here Case management consulted for inpatient rehabilitation, Dysphagia suspect secondary to intracranial bleed, Post PEG placement 05/09/17. Speech therapy was recommended patient be nothing by mouth Speech therapy to continue to follow and advance diet per exam Dietary consulted and made recommendations for bolus feeding Hypertension emergency, stable Nifedipine 40 mg every 6 hours Lisinopril 40 mg daily Apresoline 100 mg every 6 hours Catapres TTS 3 patch Metoprolol 100 mg twice daily HCTZ 25 mg twice daily --KCl 25 mEq daily --Apresoline, clonidine, Vasotec as needed Hyperglycemia Hemoglobin A1c 6.2 Glucerna 1.5 bolus tube feeding Xeroderma on bilateral feet: Lac-Hydrin 12% Lotion continued. GI Prophylaxis: Prevacid via PEG tube DVT Prophylaxis: Sequential compression devices, chemical prophylaxis contraindicated secondary to intracranial hemorrhage Discharge Planning Discharge planning per case management Kayden Kelley Jul 18, 2017 07:50
[2017-07-18 08:00] VITALS: BP 108/75; PULSE 92; RESP 18; TEMP 98.1; O2SAT 100
[2017-07-18] MEDS: SENNOSIDES SYRUP 8.8 MG/5 ML CUP PEG SCH (09:00)
[2017-07-18] MEDS: POTASSIUM CHLORIDE 25 MEQ EFFERVESCENT TAB PEG SCH (09:53)
[2017-07-18] MEDS: HYDROCHLOROTHIAZIDE 25 MG TAB PEG SCH ×2 (09:53→17:32)
[2017-07-18] MEDS: LANSOPRAZOLE SOLUTAB 30 MG TAB G-TUBE SCH (09:53)
[2017-07-18] MEDS: METOPROLOL TARTRATE 100 MG TAB PEG SCH ×2 (09:53→21:26)
[2017-07-18] MEDS: LISINOPRIL 20 MG TAB PEG SCH (09:54)
[2017-07-18] MEDS: LACTIC ACID (AMMONIUM LACTATE) 12% LOTION 225 GM BTL TOPICAL SCH ×2 (09:55→21:26)
[2017-07-18 11:55] VITALS: BP 122/84; PULSE 65; RESP 16
[2017-07-18] MEDS: REMOVE OLD CATAPRES (CLONIDINE) PATCH T-DERMAL SCH (15:00)
[2017-07-18] MEDS: cloNIDine HCL 0.3 MG/24 HR PATCH T-DERMAL SCH (16:42)
[2017-07-18 20:00] VITALS: BP 121/81; PULSE 87; RESP 18; TEMP 99.2; O2SAT 98
[2017-07-19] MEDS: NIFEdipine 20 MG CAP PEG SCH ×4 (05:31→23:58)
[2017-07-19] MEDS: hydrALAZINE HCL 50 MG TAB PEG SCH ×4 (05:31→23:49)
[2017-07-19 08:00] VITALS: BP 140/92; PULSE 85; RESP 18; TEMP 99.1; O2SAT 98
[2017-07-19] MEDS: LANSOPRAZOLE SOLUTAB 30 MG TAB G-TUBE SCH (10:58)
[2017-07-19] MEDS: LISINOPRIL 20 MG TAB PEG SCH (10:58)
[2017-07-19] MEDS: HYDROCHLOROTHIAZIDE 25 MG TAB PEG SCH ×2 (10:58→18:00)
[2017-07-19] MEDS: SENNOSIDES SYRUP 8.8 MG/5 ML CUP PEG SCH (10:58)
[2017-07-19] MEDS: METOPROLOL TARTRATE 100 MG TAB PEG SCH ×2 (10:59→21:50)
[2017-07-19] MEDS: POTASSIUM CHLORIDE 25 MEQ EFFERVESCENT TAB PEG SCH (10:59)
[2017-07-19] MEDS: LACTIC ACID (AMMONIUM LACTATE) 12% LOTION 225 GM BTL TOPICAL SCH ×2 (10:59→21:50)
[2017-07-19 12:00] VITALS: BP 116/85; PULSE 80; RESP 18; TEMP 99.1; O2SAT 98
--- NOTE | 2017-07-19 12:02 | HHI.PR ---
Subjective Remarks Patient seen and examined today for follow-up of intracranial hemorrhage, hemorrhagic CVA. Patient lying in bed. Does not indicate any new complaints. Objective Vitals Vital Signs Date Time Temp Pulse Resp B/P (MAP) Pulse Ox O2 Delivery O2 Flow Rate FiO2 07/19/17 08:00 99.1 85 18 140/92 (108) 98 07/18/17 20:00 99.2 87 18 121/81 (94) 98 I/O 07/18/17 07/18/17 07/18/17 07/19/17 07/19/17 07/19/17 07:00 15:00 23:00 07:00 15:00 23:00 Intake Total 440 ml 1220 ml Output Total 0 ml Balance 440 ml 1220 ml Intake Oral 0 ml 0 ml Tube Feeding 240 ml 720 ml Tube Irrigant 180 ml Other 200 ml 320 ml Stool Total 0 ml # Voids 4 3 4 # Bowel Movements 0 1 Objective Remarks GENERAL: Well-developed, well-nourished, in no acute distress. Awake, responds minimally with head nods. Trying to speak HEENT: Head is normocephalic without any lesions or masses noted. Facial features are symmetric. Eyes: Conjunctivae were clear. CARDIAC: Regular rhythm, regular rate. S1/S2 are heard. 2/6 ejection, no gallops or rubs. LUNGS: Clear to auscultation bilaterally. No wheeze, rhonchi or rales. No use of accessory muscles on inspiration or expiration. ABDOMEN: Soft, nontender. Nondistended. Bowel sounds heard in all 4 quadrants. No organomegaly or masses. Negative rebound, negative guarding, PEG tube noted without any signs of infection EXTREMITIES: No edema, pulses are equal bilaterally. No cyanosis or clubbing NEUROLOGY: Patient is moving left upper extremity and able to move left foot. Patient unable to move right upper and lower extremity. Procedures Peg Tube placed 05/08/17 (Dr. De Los Santos) Urinary Catheter: No Vascular Central Line Catheter: No A/P Assessment and Plan Intracranial hemorrhage, 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 No surgical intervention per Dr. Wang, Neurology following, ok for discharge to rehab. Continue PT/OT/ST Patient is improving per therapy, they indicate patient would benefit from a acute care facility that could supply her more therapy than we can offer here Case management consulted for inpatient rehabilitation, Dysphagia suspect secondary to intracranial bleed, Post PEG placement 05/09/17. Speech therapy was recommended patient be nothing by mouth Speech therapy to continue to follow and advance diet per exam Dietary consulted and made recommendations for bolus feeding Hypertension emergency, stable Nifedipine 40 mg every 6 hours Lisinopril 40 mg daily Apresoline 100 mg every 6 hours Catapres TTS 3 patch Metoprolol 100 mg twice daily HCTZ 25 mg twice daily --KCl 25 mEq daily --Apresoline, clonidine, Vasotec as needed Hyperglycemia Hemoglobin A1c 6.2 Glucerna 1.5 bolus tube feeding Xeroderma on bilateral feet: Lac-Hydrin 12% Lotion continued. GI Prophylaxis: Prevacid via PEG tube DVT Prophylaxis: Sequential compression devices, chemical prophylaxis contraindicated secondary to intracranial hemorrhage Discharge Planning Discharge planning per case management Kayden Kelley Jul 19, 2017 12:02
[2017-07-19 16:00] VITALS: BP 97/64; PULSE 78; RESP 16; TEMP 99.1; O2SAT 98
[2017-07-19 19:15] VITALS: BP 131/93; PULSE 83; RESP 16; TEMP 98.3; O2SAT 98
[2017-07-19 23:48] VITALS: BP 111/75; PULSE 80; RESP 17; TEMP 98; O2SAT 99
[2017-07-20] MEDS: hydrALAZINE HCL 50 MG TAB PEG SCH ×3 (06:04→17:19)
[2017-07-20] MEDS: NIFEdipine 20 MG CAP PEG SCH ×3 (06:04→17:19)
[2017-07-20 06:05] VITALS: BP 135/88; PULSE 92; RESP 18; TEMP 98.1; O2SAT 100
[2017-07-20 08:00] VITALS: BP 120/76; PULSE 85; RESP 17; TEMP 98.7; O2SAT 98
[2017-07-20] MEDS: METOPROLOL TARTRATE 100 MG TAB PEG SCH ×2 (08:34→20:24)
[2017-07-20] MEDS: LISINOPRIL 20 MG TAB PEG SCH (08:34)
[2017-07-20] MEDS: SENNOSIDES SYRUP 8.8 MG/5 ML CUP PEG SCH (08:35)
[2017-07-20] MEDS: HYDROCHLOROTHIAZIDE 25 MG TAB PEG SCH ×2 (08:35→17:19)
[2017-07-20] MEDS: POTASSIUM CHLORIDE 25 MEQ EFFERVESCENT TAB PEG SCH (08:35)
[2017-07-20] MEDS: LACTIC ACID (AMMONIUM LACTATE) 12% LOTION 225 GM BTL TOPICAL SCH ×2 (08:40→20:24)
[2017-07-20] MEDS: LANSOPRAZOLE SOLUTAB 30 MG TAB G-TUBE SCH (08:40)
[2017-07-20 12:00] VITALS: BP 118/76; PULSE 66; RESP 17; TEMP 98.5; O2SAT 98
--- NOTE | 2017-07-20 14:55 | HHI.PR ---
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 Patient lying in bed comfortably. Denies any new complaints. Awaiting case management discharge planning. Still awaiting response from inpatient rehabilitation Objective Vitals Vital Signs Date Time Temp Pulse Resp B/P (MAP) Pulse Ox O2 Delivery O2 Flow Rate FiO2 07/20/17 12:00 98.5 66 17 118/76 (90) 98 07/20/17 08:00 98.7 85 17 120/76 (91) 98 07/20/17 06:05 98.1 92 18 135/88 (104) 100 07/19/17 23:48 98.0 80 17 111/75 (87) 99 07/19/17 19:15 98.3 83 16 131/93 (106) 98 07/19/17 16:00 99.1 78 16 97/64 (75) 98 I/O 07/19/17 07/19/17 07/19/17 07/20/17 07/20/17 07/20/17 07:00 15:00 23:00 07:00 15:00 23:00 Intake Total 1320 ml 0 ml Balance 1320 ml 0 ml Intake Oral 0 ml Tube Feeding 720 ml Other 600 ml # Voids 4 3 # Bowel Movements 1 1 Objective Remarks GENERAL: Well-developed, well-nourished, in no acute distress. Awake, responds minimally with head nods. Trying to speak HEENT: Head is normocephalic without any lesions or masses noted. Facial features are symmetric. Eyes: Conjunctivae were clear. CARDIAC: Regular rhythm, regular rate. S1/S2 are heard. 2/6 ejection, no gallops or rubs. LUNGS: Clear to auscultation bilaterally. No wheeze, rhonchi or rales. No use of accessory muscles on inspiration or expiration. ABDOMEN: Soft, nontender. Nondistended. Bowel sounds heard in all 4 quadrants. No organomegaly or masses. Negative rebound, negative guarding, PEG tube noted without any signs of infection EXTREMITIES: No edema, pulses are equal bilaterally. No cyanosis or clubbing NEUROLOGY: Patient is moving left upper extremity and able to move left foot. Patient unable to move right upper and lower extremity. Procedures Peg Tube placed 05/08/17 (Dr. De Los Santos) Urinary Catheter: No Vascular Central Line Catheter: No A/P Assessment and Plan Intracranial hemorrhage, 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 No surgical intervention per Dr. Wang, Neurology following, ok for discharge to rehab. Continue PT/OT/ST Patient is improving per therapy, they indicate patient would benefit from a acute care facility that could supply her more therapy than we can offer here Case management consulted for inpatient rehabilitation, awaiting response Dysphagia suspect secondary to intracranial bleed, Post PEG placement 05/09/17. Speech therapy was recommended patient be nothing by mouth Speech therapy to continue to follow and advance diet per exam Dietary consulted and made recommendations for bolus feeding Hypertension emergency, stable Nifedipine 40 mg every 6 hours Lisinopril 40 mg daily Apresoline 100 mg every 6 hours Catapres TTS 3 patch Metoprolol 100 mg twice daily HCTZ 25 mg twice daily --KCl 25 mEq daily --Apresoline, clonidine, Vasotec as needed Hyperglycemia Hemoglobin A1c 6.2 Glucerna 1.5 bolus tube feeding Xeroderma on bilateral feet: Lac-Hydrin 12% Lotion continued. GI Prophylaxis: Prevacid via PEG tube DVT Prophylaxis: Sequential compression devices, chemical prophylaxis contraindicated secondary to intracranial hemorrhage Discharge Planning Discharge planning per case management Kayden Kelley Jul 20, 2017 14:55
[2017-07-20 16:00] VITALS: BP 121/85; PULSE 81; RESP 18; TEMP 97.8; O2SAT 98
[2017-07-20 20:00] VITALS: BP 113/76; PULSE 18; RESP 18; TEMP 99.3; O2SAT 98
[2017-07-21] MEDS: NIFEdipine 20 MG CAP PEG SCH ×4 (06:00→17:17)
[2017-07-21] MEDS: hydrALAZINE HCL 50 MG TAB PEG SCH ×4 (06:00→17:17)
[2017-07-21 08:00] VITALS: BP 123/77; PULSE 108; RESP 16; TEMP 98.8; O2SAT 98
[2017-07-21] MEDS: LISINOPRIL 20 MG TAB PEG SCH (08:56)
[2017-07-21] MEDS: LANSOPRAZOLE SOLUTAB 30 MG TAB G-TUBE SCH (08:56)
[2017-07-21] MEDS: LACTIC ACID (AMMONIUM LACTATE) 12% LOTION 225 GM BTL TOPICAL SCH ×2 (08:56→20:38)
[2017-07-21] MEDS: METOPROLOL TARTRATE 100 MG TAB PEG SCH ×2 (08:56→20:38)
[2017-07-21] MEDS: POTASSIUM CHLORIDE 25 MEQ EFFERVESCENT TAB PEG SCH (08:56)
[2017-07-21] MEDS: SENNOSIDES SYRUP 8.8 MG/5 ML CUP PEG SCH (08:56)
[2017-07-21] MEDS: HYDROCHLOROTHIAZIDE 25 MG TAB PEG SCH ×2 (08:56→17:17)
--- NOTE | 2017-07-21 09:33 | HHI.PR ---
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 Patient resting in bed carefully. Denies any new complaints. Objective Vitals Vital Signs Date Time Temp Pulse Resp B/P (MAP) Pulse Ox O2 Delivery O2 Flow Rate FiO2 07/20/17 20:00 99.3 18 18 113/76 (88) 98 07/20/17 16:00 97.8 81 18 121/85 (97) 98 07/20/17 12:00 98.5 66 17 118/76 (90) 98 I/O 07/20/17 07/20/17 07/20/17 07/21/17 07/21/17 07/21/17 07:00 15:00 23:00 07:00 15:00 23:00 Intake Total 0 ml Balance 0 ml Intake Oral 0 ml # Voids 3 3 3 # Bowel Movements 1 1 1 Objective Remarks GENERAL: Well-developed, well-nourished, in no acute distress. Awake, responds minimally with head nods. Trying to speak HEENT: Head is normocephalic without any lesions or masses noted. Facial features are symmetric. Eyes: Conjunctivae were clear. CARDIAC: Regular rhythm, regular rate. S1/S2 are heard. 2/6 ejection, no gallops or rubs. LUNGS: Clear to auscultation bilaterally. No wheeze, rhonchi or rales. No use of accessory muscles on inspiration or expiration. ABDOMEN: Soft, nontender. Nondistended. Bowel sounds heard in all 4 quadrants. No organomegaly or masses. Negative rebound, negative guarding, PEG tube noted without any signs of infection EXTREMITIES: No edema, pulses are equal bilaterally. No cyanosis or clubbing NEUROLOGY: Patient is moving left upper extremity and able to move left foot. Patient unable to move right upper and lower extremity. Procedures Peg Tube placed 05/08/17 (Dr. De Los Santos) Urinary Catheter: No Vascular Central Line Catheter: No A/P Assessment and Plan Intracranial hemorrhage, 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 No surgical intervention per Dr. Wang, Neurology following, ok for discharge to rehab. Continue PT/OT/ST Patient is improving per therapy, they indicate patient would benefit from a acute care facility that could supply her more therapy than we can offer here Case management consulted for inpatient rehabilitation, awaiting response Dysphagia suspect secondary to intracranial bleed, Post PEG placement 05/09/17. Speech therapy was recommended patient be nothing by mouth Speech therapy to continue to follow and advance diet per exam Dietary consulted and made recommendations for bolus feeding Hypertension emergency, stable Nifedipine 40 mg every 6 hours Lisinopril 40 mg daily Apresoline 100 mg every 6 hours Catapres TTS 3 patch Metoprolol 100 mg twice daily HCTZ 25 mg twice daily --KCl 25 mEq daily --Apresoline, clonidine, Vasotec as needed Hyperglycemia Hemoglobin A1c 6.2 Glucerna 1.5 bolus tube feeding Xeroderma on bilateral feet: Lac-Hydrin 12% Lotion continued. GI Prophylaxis: Prevacid via PEG tube DVT Prophylaxis: Sequential compression devices, chemical prophylaxis contraindicated secondary to intracranial hemorrhage Discharge Planning Discharge planning per case management Kayden Kelley Jul 21, 2017 09:33
[2017-07-21 21:36] VITALS: BP 113/73; PULSE 93; RESP 16; TEMP 98.8; O2SAT 99
[2017-07-22] MEDS: NIFEdipine 20 MG CAP PEG SCH ×5 (00:34→23:48)
[2017-07-22] MEDS: hydrALAZINE HCL 50 MG TAB PEG SCH ×5 (00:34→23:48)
[2017-07-22 08:00] VITALS: BP 99/73; PULSE 84; RESP 18; TEMP 98; O2SAT 98
[2017-07-22] MEDS: SENNOSIDES SYRUP 8.8 MG/5 ML CUP PEG SCH (09:00)
[2017-07-22] MEDS: LACTIC ACID (AMMONIUM LACTATE) 12% LOTION 225 GM BTL TOPICAL SCH ×2 (09:00→21:00)
[2017-07-22] MEDS: HYDROCHLOROTHIAZIDE 25 MG TAB PEG SCH (09:00)
[2017-07-22] MEDS: LANSOPRAZOLE SOLUTAB 30 MG TAB G-TUBE SCH (09:53)
[2017-07-22] MEDS: POTASSIUM CHLORIDE 25 MEQ EFFERVESCENT TAB PEG SCH (09:54)
[2017-07-22] MEDS: LISINOPRIL 20 MG TAB PEG SCH (09:54)
[2017-07-22] MEDS: METOPROLOL TARTRATE 100 MG TAB PEG SCH ×2 (09:54→21:36)
--- NOTE | 2017-07-22 10:32 | HHI.PR ---
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 Patient is resting carefully. No new complaints. Objective Vitals Vital Signs Date Time Temp Pulse Resp B/P (MAP) Pulse Ox O2 Delivery O2 Flow Rate FiO2 07/22/17 08:00 98.0 84 18 99/73 (82) 98 07/21/17 21:36 98.8 93 16 113/73 (86) 99 I/O 07/21/17 07/21/17 07/21/17 07/22/17 07/22/17 07/22/17 07:00 15:00 23:00 07:00 15:00 23:00 Intake Total 960 ml 560 ml Balance 960 ml 560 ml Tube Feeding 720 ml 240 ml Other 240 ml 320 ml # Voids 3 4 2 # Bowel Movements 1 1 1 Objective Remarks GENERAL: Well-developed, well-nourished, in no acute distress. Awake, responds minimally with head nods. Trying to speak HEENT: Head is normocephalic without any lesions or masses noted. Facial features are symmetric. Eyes: Conjunctivae were clear. CARDIAC: Regular rhythm, regular rate. S1/S2 are heard. 2/6 ejection, no gallops or rubs. LUNGS: Clear to auscultation bilaterally. No wheeze, rhonchi or rales. No use of accessory muscles on inspiration or expiration. ABDOMEN: Soft, nontender. Nondistended. Bowel sounds heard in all 4 quadrants. No organomegaly or masses. Negative rebound, negative guarding, PEG tube noted without any signs of infection EXTREMITIES: No edema, pulses are equal bilaterally. No cyanosis or clubbing NEUROLOGY: Patient is moving left upper extremity and able to move left foot. Patient unable to move right upper and lower extremity. Procedures Peg Tube placed 05/08/17 (Dr. De Los Santos) Urinary Catheter: No Vascular Central Line Catheter: No A/P Assessment and Plan Intracranial hemorrhage, 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 No surgical intervention per Dr. Wang, Neurology following, ok for discharge to rehab. Continue PT/OT/ST Patient is improving per therapy, they indicate patient would benefit from a acute care facility that could supply her more therapy than we can offer here Case management consulted for inpatient rehabilitation, awaiting response Dysphagia suspect secondary to intracranial bleed, Post PEG placement 05/09/17. Speech therapy was recommended patient be nothing by mouth Speech therapy to continue to follow and advance diet per exam Dietary consulted and made recommendations for bolus feeding Hypertension emergency, stable Nifedipine 40 mg every 6 hours Lisinopril 40 mg daily Apresoline 100 mg every 6 hours Catapres TTS 3 patch Metoprolol 100 mg twice daily HCTZ 25 mg twice daily --KCl 25 mEq daily --Apresoline, clonidine, Vasotec as needed Hyperglycemia Hemoglobin A1c 6.2 Glucerna 1.5 bolus tube feeding Xeroderma on bilateral feet: Lac-Hydrin 12% Lotion continued. GI Prophylaxis: Prevacid via PEG tube DVT Prophylaxis: Sequential compression devices, chemical prophylaxis contraindicated secondary to intracranial hemorrhage Discharge Planning Discharge planning per case management Kayden Kelley Jul 22, 2017 10:32
[2017-07-22 18:26] LABS: AUTOMATED NEUTROPHIL # 2.7 TH/MM3 (1.8-7.7); BASOPHIL # 0.1 TH/MM3 (0-0.2); BASOPHIL % 1.5 % (0.0-2.0); EOSINOPHIL # 0.1 TH/MM3 (0-0.4); EOSINOPHIL % 1.6 % (0.0-4.0); HEMATOCRIT 37.3 % (35.0-46.0); HEMOGLOBIN 12.2 GM/DL (11.6-15.3); LYMPH % 28.2 % (9.0-44.0); LYMPHOCYTE # 1.4 TH/MM3 (1.0-4.8); MEAN CELL VOLUME 86.7 FL (80.0-100.0); MEAN CORPUSCULAR HEMOGLOBIN 28.3 PG (27.0-34.0); MEAN CORPUSCULAR HGB CONC 32.6 % (32.0-36.0); MEAN PLATELET VOLUME 9.1 FL (7.0-11.0); MONO % 10.5 % (0.0-8.0); MONOCYTE # 0.5 TH/MM3 (0-0.9); NEUT % 58.2 % (16.0-70.0); PLATELET COUNT 283 TH/MM3 (150-450); RED CELL DISTRIBUTION WIDTH 13.4 % (11.6-17.2); WHITE BLOOD COUNT 4.8 TH/MM3 (4.0-11.0)
[2017-07-22 18:39] LABS: CALCIUM 9.4 MG/DL (8.5-10.1)
[2017-07-22 18:43] LABS: CREATININE 0.48 MG/DL (0.50-1.00)
[2017-07-22 21:36] VITALS: BP 104/73; PULSE 73; RESP 18; TEMP 98.3; O2SAT 96
[2017-07-23] MEDS: hydrALAZINE HCL 50 MG TAB PEG SCH ×3 (05:58→17:44)
[2017-07-23] MEDS: NIFEdipine 20 MG CAP PEG SCH ×3 (05:58→17:44)
[2017-07-23 08:00] VITALS: BP 110/76; PULSE 74; RESP 19; TEMP 97.7; O2SAT 97
[2017-07-23] MEDS: SENNOSIDES SYRUP 8.8 MG/5 ML CUP PEG SCH (08:54)
[2017-07-23] MEDS: LANSOPRAZOLE SOLUTAB 30 MG TAB G-TUBE SCH (08:54)
[2017-07-23] MEDS: LISINOPRIL 20 MG TAB PEG SCH (08:54)
[2017-07-23] MEDS: METOPROLOL TARTRATE 100 MG TAB PEG SCH ×2 (08:54→21:29)
[2017-07-23] MEDS: LACTIC ACID (AMMONIUM LACTATE) 12% LOTION 225 GM BTL TOPICAL SCH ×2 (08:55→21:29)
--- NOTE | 2017-07-23 10:45 | HHI.PR ---
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 Patient did have episodes of low blood pressure yesterday, HCTZ/KCl were held. Blood pressure still on the low side. Patient denies any new complaints. Objective Vitals Vital Signs Date Time Temp Pulse Resp B/P (MAP) Pulse Ox O2 Delivery O2 Flow Rate FiO2 07/23/17 08:00 97.7 74 19 110/76 (87) 97 07/22/17 21:36 98.3 73 18 104/73 (83) 96 I/O 07/22/17 07/22/17 07/22/17 07/23/17 07/23/17 07/23/17 07:00 15:00 23:00 07:00 15:00 23:00 Intake Total 560 ml Balance 560 ml Tube Feeding 240 ml Other 320 ml # Voids 2 1 4 # Bowel Movements 1 2 Result Diagram: 07/22/17181407/22/171814 Objective Remarks GENERAL: Well-developed, well-nourished, in no acute distress. Awake, responds minimally with head nods. Trying to speak HEENT: Head is normocephalic without any lesions or masses noted. Facial features are symmetric. Eyes: Conjunctivae were clear. CARDIAC: Regular rhythm, regular rate. S1/S2 are heard. 2/6 ejection, no gallops or rubs. LUNGS: Clear to auscultation bilaterally. No wheeze, rhonchi or rales. No use of accessory muscles on inspiration or expiration. ABDOMEN: Soft, nontender. Nondistended. Bowel sounds heard in all 4 quadrants. No organomegaly or masses. Negative rebound, negative guarding, PEG tube noted without any signs of infection EXTREMITIES: No edema, pulses are equal bilaterally. No cyanosis or clubbing NEUROLOGY: Patient is moving left upper extremity and able to move left foot. Patient unable to move right upper and lower extremity. Procedures Peg Tube placed 05/08/17 (Dr. De Los Santos) Urinary Catheter: No Vascular Central Line Catheter: No A/P Assessment and Plan Intracranial hemorrhage, 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 No surgical intervention per Dr. Wang, Neurology following, ok for discharge to rehab. Continue PT/OT/ST Patient is improving per therapy, they indicate patient would benefit from a acute care facility that could supply her more therapy than we can offer here Case management consulted for inpatient rehabilitation, awaiting response Dysphagia suspect secondary to intracranial bleed, Post PEG placement 05/09/17. Speech therapy was recommended patient be nothing by mouth Speech therapy to continue to follow and advance diet per exam Dietary consulted and made recommendations for bolus feeding Hypertension emergency, Nifedipine 40 mg every 6 hours Lisinopril 40 mg daily Apresoline 100 mg every 6 hours Catapres TTS 3 patch Metoprolol 100 mg twice daily HCTZ 25 mg twice daily, on hold --KCl 25 mEq daily, on hold --Apresoline, clonidine, Vasotec as needed --Low blood pressure, laboratory studies were performed CBC and BMP without any acute abnormality, no signs of infection. We'll adjust blood pressure medication Hyperglycemia Hemoglobin A1c 6.2 Glucerna 1.5 bolus tube feeding Xeroderma on bilateral feet: Lac-Hydrin 12% Lotion continued. GI Prophylaxis: Prevacid via PEG tube DVT Prophylaxis: Sequential compression devices, chemical prophylaxis contraindicated secondary to intracranial hemorrhage Discharge Planning Discharge planning per case management Kayden Kelley Jul 23, 2017 10:45
[2017-07-23 12:00] VITALS: BP 95/63; PULSE 72; RESP 16; TEMP 98; O2SAT 97
[2017-07-23 16:00] VITALS: BP 110/70; PULSE 65; RESP 15; TEMP 99.1; O2SAT 97
[2017-07-23 19:15] VITALS: BP 132/83; PULSE 80; RESP 16; TEMP 98.6; O2SAT 98
[2017-07-24] VITALS: BP 126/84
[2017-07-24] MEDS: NIFEdipine 20 MG CAP PEG SCH ×4 (00:01→17:38)
[2017-07-24 04:00] VITALS: BP 129/89
[2017-07-24] MEDS: hydrALAZINE HCL 50 MG TAB PEG SCH ×4 (05:50→17:38)
[2017-07-24 08:00] VITALS: BP 151/97; PULSE 88; RESP 18; TEMP 98.8; O2SAT 96
[2017-07-24] MEDS: LACTIC ACID (AMMONIUM LACTATE) 12% LOTION 225 GM BTL TOPICAL SCH ×2 (08:19→22:07)
[2017-07-24] MEDS: SENNOSIDES SYRUP 8.8 MG/5 ML CUP PEG SCH (08:19)
[2017-07-24] MEDS: LISINOPRIL 20 MG TAB PEG SCH (08:19)
[2017-07-24] MEDS: METOPROLOL TARTRATE 100 MG TAB PEG SCH ×2 (08:19→22:06)
[2017-07-24] MEDS: LANSOPRAZOLE SOLUTAB 30 MG TAB G-TUBE SCH (08:19)
--- NOTE | 2017-07-24 10:24 | HHI.PR ---
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 Patient lying in bed. Smiling today and trying to talk. Denies any new complaints., Patient appears to be in good spirits. Objective Vitals Vital Signs Date Time Temp Pulse Resp B/P (MAP) Pulse Ox O2 Delivery O2 Flow Rate FiO2 07/24/17 04:00 129/89 (102) 07/24/17 00:00 126/84 (98) 07/23/17 19:15 98.6 80 16 132/83 (99) 98 07/23/17 16:00 99.1 65 15 110/70 (83) 97 07/23/17 12:00 98.0 72 16 95/63 (74) 97 I/O 07/23/17 07/23/17 07/23/17 07/24/17 07/24/17 07/24/17 07:00 15:00 23:00 07:00 15:00 23:00 Intake Total 0 ml 0 ml Balance 0 ml 0 ml Intake Oral 0 ml 0 ml # Voids 4 2 3 # Bowel Movements 2 1 2 Result Diagram: 07/22/17181407/22/171814 Objective Remarks GENERAL: Well-developed, well-nourished, in no acute distress. Awake, responds minimally with head nods. Trying to speak HEENT: Head is normocephalic without any lesions or masses noted. Facial features are symmetric. Eyes: Conjunctivae were clear. CARDIAC: Regular rhythm, regular rate. S1/S2 are heard. 2/6 ejection, no gallops or rubs. LUNGS: Clear to auscultation bilaterally. No wheeze, rhonchi or rales. No use of accessory muscles on inspiration or expiration. ABDOMEN: Soft, nontender. Nondistended. Bowel sounds heard in all 4 quadrants. No organomegaly or masses. Negative rebound, negative guarding, PEG tube noted without any signs of infection EXTREMITIES: No edema, pulses are equal bilaterally. No cyanosis or clubbing NEUROLOGY: Patient is moving left upper extremity and able to move left foot. Patient unable to move right upper and lower extremity. Procedures Peg Tube placed 05/08/17 (Dr. De Los Santos) Urinary Catheter: No Vascular Central Line Catheter: No A/P Assessment and Plan Intracranial hemorrhage, 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 No surgical intervention per Dr. Wang, Neurology following, ok for discharge to rehab. Continue PT/OT/ST Patient is improving per therapy, they indicate patient would benefit from a acute care facility that could supply her more therapy than we can offer here Case management consulted for inpatient rehabilitation, awaiting response Dysphagia suspect secondary to intracranial bleed, Post PEG placement 05/09/17. Speech therapy was recommended patient be nothing by mouth Speech therapy to continue to follow and advance diet per exam Dietary consulted and made recommendations for bolus feeding Hypertension emergency, Nifedipine 40 mg every 6 hours Lisinopril 40 mg daily Apresoline 100 mg every 6 hours Catapres TTS 3 patch Metoprolol 100 mg twice daily HCTZ 25 mg twice daily, on hold --KCl 25 mEq daily, on hold --Apresoline, clonidine, Vasotec as needed --Low blood pressure, laboratory studies were performed CBC and BMP without any acute abnormality, no signs of infection. We'll adjust blood pressure medication --If blood pressure remains stable in the next 48 hours will discontinue HCTZ, KCl Hyperglycemia Hemoglobin A1c 6.2 Glucerna 1.5 bolus tube feeding Xeroderma on bilateral feet: Lac-Hydrin 12% Lotion continued. GI Prophylaxis: Prevacid via PEG tube DVT Prophylaxis: Sequential compression devices, chemical prophylaxis contraindicated secondary to intracranial hemorrhage Discharge Planning Discharge planning per case management Kayden Kelley Jul 24, 2017 10:24
[2017-07-24 12:00] VITALS: BP 127/83; PULSE 71; RESP 18; TEMP 98.7; O2SAT 97
[2017-07-24 20:00] VITALS: BP 118/88; PULSE 79; RESP 18; TEMP 98.3; O2SAT 98
[2017-07-25] MEDS: hydrALAZINE HCL 50 MG TAB PEG SCH ×5 (05:35→23:17)
[2017-07-25] MEDS: NIFEdipine 20 MG CAP PEG SCH ×5 (05:35→23:17)
[2017-07-25 08:00] VITALS: BP 122/76; PULSE 90; RESP 17; TEMP 97; O2SAT 96
[2017-07-25] MEDS: SENNOSIDES SYRUP 8.8 MG/5 ML CUP PEG SCH (08:06)
[2017-07-25] MEDS: LISINOPRIL 20 MG TAB PEG SCH (08:07)
[2017-07-25] MEDS: LANSOPRAZOLE SOLUTAB 30 MG TAB G-TUBE SCH (08:08)
[2017-07-25] MEDS: METOPROLOL TARTRATE 100 MG TAB PEG SCH ×2 (08:08→20:37)
[2017-07-25] MEDS: LACTIC ACID (AMMONIUM LACTATE) 12% LOTION 225 GM BTL TOPICAL SCH ×2 (08:09→20:37)
--- NOTE | 2017-07-25 10:21 | HHI.PR ---
Subjective Remarks Follow-up for hemorrhagic CVA, hypertension. Patient nods "yes" when I ask her if she is ok. Objective Vitals Vital Signs Date Time Temp Pulse Resp B/P (MAP) Pulse Ox O2 Delivery O2 Flow Rate FiO2 07/25/17 08:00 97.0 90 17 122/76 (91) 96 07/24/17 20:00 98.3 79 18 118/88 (98) 98 07/24/17 12:00 98.7 71 18 127/83 (98) 97 I/O 07/24/17 07/24/17 07/24/17 07/25/17 07/25/17 07/25/17 07:00 15:00 23:00 07:00 15:00 23:00 Intake Total 0 ml 640 ml Balance 0 ml 640 ml Intake Oral 0 ml Tube Feeding 240 ml Tube Irrigant 80 ml Other 320 ml # Voids 3 4 4 # Bowel Movements 2 0 Result Diagram: 07/22/17181407/22/171814 Objective Remarks GENERAL: Well nourished well-developed patient in no apparent distress sleeping when I enter the room. CARDIOVASCULAR: Regular rate and rhythm. Murmur loudest at LLSB. RESPIRATORY: No accessory muscle use. Clear to auscultation bilaterally. GASTROINTESTINAL: Abdomen soft, non-tender, nondistended. NEUROLOGICAL: Arouses, awake and alert. Aphasic. Weak grasp Left hand. Procedures Peg Tube placed 05/08/17 (Dr. De Los Santos) Urinary Catheter: No Vascular Central Line Catheter: No A/P Assessment and Plan Intracranial hemorrhage Secondary to uncontrolled hypertension and hypertensive emergency Thalamic ICH with intraventricular extension. No surgical intervention per Dr. Wang. Neurology following, ok for discharge to rehab. Continue PT/OT/ST Dysphagia suspect secondary to intracranial bleed Post PEG placement 05/09/17. Patient initially pureed diet with honey thickened liquids, tsp by tsp, but reevaluated by speech therapy on 06/14 and made NPO as she had clinical symptoms of aspiration with all consistencies. Dietary following with recommendations as below: Jevity 1.5 boluses of 240mls @ 9AM, 1PM, & 6PM and 120mls @ 9PM. Flush 30mls water before and after each bolus feeding. Additional 100ml free water flush q6hrs. Hypertension emergency/HTN: HTN controlled. Nifedipine 40 mg q6h Lisinopril 40 mg daily Hydralazine 100 mg every 6 hours Catapres 0.3 mg patch weekly Metoprolol 100 mg twice daily HCTZ 25 mg bid with KCl 25 mEq daily, on hold currently due to hypotension. Hydralazine prn for SBP >150. Continue to monitor and adjust medication as needed. Febrile illness: Resolved. Could be secondary to occult infection or possible neurologic from CVA, hemorrhage 05/28 Chest x-ray indicated mild L lung atelectasis versus infiltrate. 05/31 Chest x-ray appears improved from prior; no focal consolidations noted. Urinalysis was normal Blood culture 05/28 NGTD S/p Levaquin 750 mg daily for total of 7 days Hypernatremia and hyperchloremia: Resolved. Likely to related to decreased by mouth intake. -S/p IVF -Monitor BMP periodically. Pre-renal azotemia: Recurrent. BUN 20 on 07/08. Cr normal. -S/p IVF -Continue free water flushes Hyperglycemia Hemoglobin A1c 6.2 Glucerna 1.5 for feeding Xeroderma on bilateral feet: Lac-Hydrin 12% Lotion continued. Oral thrush: S/p Fluconazole treatment GI Prophylaxis: Prevacid via PEG tube DVT Prophylaxis: SCDs. Chemical prophylaxis contraindicated secondary to intracranial hemorrhage Discharge Planning 07/22: Per CM patient cannot go to [facility] as she is homeless and does not have a discharge disposition in place. Yuly Shafer Jul 25, 2017 10:21
[2017-07-25] MEDS: cloNIDine HCL 0.3 MG/24 HR PATCH T-DERMAL SCH (17:13)
[2017-07-25] MEDS: REMOVE OLD CATAPRES (CLONIDINE) PATCH T-DERMAL SCH (17:14)
[2017-07-25 20:00] VITALS: BP 98/67; PULSE 80; RESP 16; TEMP 98.4; O2SAT 99
[2017-07-26] VITALS: BP 113/83; PULSE 62; RESP 18; TEMP 98.3; O2SAT 97
[2017-07-26] MEDS: NIFEdipine 20 MG CAP PEG SCH ×3 (05:30→18:00)
[2017-07-26] MEDS: hydrALAZINE HCL 50 MG TAB PEG SCH ×3 (05:30→18:00)
[2017-07-26] MEDS: METOPROLOL TARTRATE 100 MG TAB PEG SCH ×2 (07:34→20:55)
[2017-07-26] MEDS: SENNOSIDES SYRUP 8.8 MG/5 ML CUP PEG SCH (07:34)
[2017-07-26] MEDS: LANSOPRAZOLE SOLUTAB 30 MG TAB G-TUBE SCH (07:34)
[2017-07-26] MEDS: LISINOPRIL 20 MG TAB PEG SCH (07:34)
[2017-07-26 08:00] VITALS: BP 128/72; PULSE 69; RESP 17; TEMP 97.5; O2SAT 96
--- NOTE | 2017-07-26 10:09 | HHI.PR ---
Subjective Remarks Follow-up for hemorrhagic CVA, hypertension. Patient nods her head "yes" when I ask if she is ok. Objective Vitals Vital Signs Date Time Temp Pulse Resp B/P (MAP) Pulse Ox O2 Delivery O2 Flow Rate FiO2 07/26/17 08:00 97.5 69 17 128/72 (90) 96 07/26/17 00:00 98.3 62 18 113/83 (93) 97 07/25/17 20:00 98.4 80 16 98/67 (77) 99 I/O 07/25/17 07/25/17 07/25/17 07/26/17 07/26/17 07/26/17 07:00 15:00 23:00 07:00 15:00 23:00 Intake Total 640 ml 560 ml 0 ml Balance 640 ml 560 ml 0 ml Intake Oral 0 ml 0 ml Tube Feeding 240 ml 240 ml Tube Irrigant 80 ml 320 ml Other 320 ml # Voids 4 2 1 # Bowel Movements 0 0 0 Result Diagram: 07/22/17181407/22/171814 Objective Remarks GENERAL: Well nourished well-developed patient in no apparent distress sleeping when I enter the room. CARDIOVASCULAR: Regular rate and rhythm. 2/6 murmur. RESPIRATORY: No accessory muscle use. Clear to auscultation bilaterally; decreased over right lower lobe. GASTROINTESTINAL: Abdomen soft, non-tender, nondistended. PEG tube present NEUROLOGICAL: Arouses, awake and alert. Aphasic. Weak grasp Left hand. Procedures Peg Tube placed 05/08/17 (Dr. De Los Santos) Urinary Catheter: No Vascular Central Line Catheter: No A/P Assessment and Plan Intracranial hemorrhage Secondary to uncontrolled hypertension and hypertensive emergency Thalamic ICH with intraventricular extension. No surgical intervention per Dr. Wang. Neurology following, ok for discharge to rehab. Continue PT/OT/ST Dysphagia suspect secondary to intracranial bleed Post PEG placement 05/09/17. Patient initially pureed diet with honey thickened liquids, tsp by tsp, but reevaluated by speech therapy on 06/14 and made NPO as she had clinical symptoms of aspiration with all consistencies. Dietary following with recommendations as below: Jevity 1.5 boluses of 240mls @ 9AM, 1PM, & 6PM and 120mls @ 9PM. Flush 30mls water before and after each bolus feeding. Additional 100ml free water flush q6hrs. Hypertension emergency/HTN: HTN controlled. Nifedipine 40 mg q6h Lisinopril 40 mg daily Hydralazine 100 mg every 6 hours Catapres 0.3 mg patch weekly Metoprolol 100 mg twice daily HCTZ 25 mg bid with KCl 25 mEq daily, on hold currently due to hypotension. Hydralazine prn for SBP >150. Continue to monitor and adjust medication as needed. Febrile illness: Resolved. Could be secondary to occult infection or possible neurologic from CVA, hemorrhage 05/28 Chest x-ray indicated mild L lung atelectasis versus infiltrate. 05/31 Chest x-ray appears improved from prior; no focal consolidations noted. Urinalysis was normal Blood culture 05/28 NGTD S/p Levaquin 750 mg daily for total of 7 days Hypernatremia and hyperchloremia: Resolved. Likely to related to decreased by mouth intake. -S/p IVF -Monitor BMP periodically. Pre-renal azotemia: Recurrent. BUN 20 on 07/08. Cr normal. -S/p IVF -Continue free water flushes Hyperglycemia Hemoglobin A1c 6.2 Glucerna 1.5 for feeding Xeroderma on bilateral feet: Lac-Hydrin 12% Lotion continued. Oral thrush: S/p Fluconazole treatment GI Prophylaxis: Prevacid via PEG tube DVT Prophylaxis: SCDs. Chemical prophylaxis contraindicated secondary to intracranial hemorrhage Discharge Planning 07/22: Per CM patient cannot go to [facility] as she is homeless and does not have a discharge disposition in place. Yuly Shafer Jul 26, 2017 10:09
[2017-07-26] MEDS: LACTIC ACID (AMMONIUM LACTATE) 12% LOTION 225 GM BTL TOPICAL SCH ×2 (13:46→20:55)
[2017-07-26 20:00] VITALS: BP 152/107; PULSE 105; RESP 20; TEMP 98.9; O2SAT 96
[2017-07-27] VITALS: BP 132/91; PULSE 80
[2017-07-27] MEDS: hydrALAZINE HCL 50 MG TAB PEG SCH ×5 (00:09→23:58)
[2017-07-27] MEDS: NIFEdipine 20 MG CAP PEG SCH ×5 (00:10→23:58)
[2017-07-27 08:00] VITALS: BP_SYST 106; BP_SYST 141; BP_DIAS 70; BP_DIAS 95; PULSE 102; PULSE 125; RESP 19; RESP 22; TEMP 99.2; O2SAT 99
[2017-07-27] MEDS: METOPROLOL TARTRATE 100 MG TAB PEG SCH ×2 (08:50→20:28)
[2017-07-27] MEDS: LISINOPRIL 20 MG TAB PEG SCH (08:50)
[2017-07-27] MEDS: LANSOPRAZOLE SOLUTAB 30 MG TAB G-TUBE SCH (08:51)
[2017-07-27] MEDS: SENNOSIDES SYRUP 8.8 MG/5 ML CUP PEG SCH (08:56)
[2017-07-27] MEDS: LACTIC ACID (AMMONIUM LACTATE) 12% LOTION 225 GM BTL TOPICAL SCH ×2 (09:15→20:28)
--- NOTE | 2017-07-27 11:12 | HHI.PR ---
Subjective Remarks Follow-up for hemorrhagic CVA, hypertension. Patient initially sleeping but arouses and nods her head yes when I ask if she is alright. Objective Vitals Vital Signs Date Time Temp Pulse Resp B/P (MAP) Pulse Ox O2 Delivery O2 Flow Rate FiO2 07/27/17 08:00 99.2 125 19 141/95 (110) 99 07/27/17 00:00 80 132/91 (105) 07/26/17 20:00 98.9 105 20 152/107 (122) 96 I/O 07/26/17 07/26/17 07/26/17 07/27/17 07/27/17 07/27/17 07:00 15:00 23:00 07:00 15:00 23:00 Intake Total 0 ml 420 ml 360 ml 300 ml Balance 0 ml 420 ml 360 ml 300 ml Intake Oral 0 ml 0 ml 0 ml Tube Feeding 240 ml 240 ml Tube Irrigant 180 ml 360 ml 60 ml # Voids 1 2 1 # Bowel Movements 0 1 0 Objective Remarks GENERAL: Well nourished well-developed patient in no apparent distress. CARDIOVASCULAR: Regular rate and rhythm. 2/6 murmur loudest at LLSB. RESPIRATORY: No accessory muscle use. Clear to auscultation but decreased breath sounds as patient does not follow command to take deep breaths. NEUROLOGICAL: Arouses, awake and alert. Aphasic. R sided facial droop. Weak grasp Left hand. Procedures Peg Tube placed 05/08/17 (Dr. De Los Santos) Urinary Catheter: No Vascular Central Line Catheter: No A/P Assessment and Plan Intracranial hemorrhage Secondary to uncontrolled hypertension and hypertensive emergency Thalamic ICH with intraventricular extension. No surgical intervention per Dr. Wang. Neurology following, ok for discharge to rehab. Continue PT/OT/ST Dysphagia suspect secondary to intracranial bleed Post PEG placement 05/09/17. Patient initially pureed diet with honey thickened liquids, tsp by tsp, but reevaluated by speech therapy on 06/14 and made NPO as she had clinical symptoms of aspiration with all consistencies. Dietary following with recommendations as below: Jevity 1.5 boluses of 240mls @ 9AM, 1PM, & 6PM and 120mls @ 9PM. Flush 30mls water before and after each bolus feeding. Additional 100ml free water flush q6hrs. Hypertension emergency/HTN: Nifedipine 40 mg q6h Lisinopril 40 mg daily Hydralazine 100 mg every 6 hours Catapres 0.3 mg patch weekly Metoprolol 100 mg twice daily HCTZ 25 mg bid with KCl 25 mEq daily, on hold currently due to hypotension. Hydralazine prn for SBP >150. Continue to monitor and adjust medication as needed. 07/27: BP starting to creep up again. If stays persistently elevated, may need to restart HCTZ but once daily. Monitor. Febrile illness: Resolved. Could be secondary to occult infection or possible neurologic from CVA, hemorrhage 05/28 Chest x-ray indicated mild L lung atelectasis versus infiltrate. 05/31 Chest x-ray appears improved from prior; no focal consolidations noted. Urinalysis was normal Blood culture 05/28 NGTD S/p Levaquin 750 mg daily for total of 7 days Hypernatremia and hyperchloremia: Resolved. Likely to related to decreased by mouth intake. -S/p IVF -Monitor BMP periodically. Pre-renal azotemia: Recurrent. BUN 20 on 07/08. Cr normal. -S/p IVF -Continue free water flushes Hyperglycemia Hemoglobin A1c 6.2 Glucerna 1.5 for feeding Xeroderma on bilateral feet: Lac-Hydrin 12% Lotion continued. Oral thrush: S/p Fluconazole treatment GI Prophylaxis: Prevacid via PEG tube DVT Prophylaxis: SCDs. Chemical prophylaxis contraindicated secondary to intracranial hemorrhage Discharge Planning 07/22: Per CM patient cannot go to [facility] as she is homeless and does not have a discharge disposition in place. 07/26: SSI/ [facility] pending; info provided limited and hard to verify per CM. Yuly Shafer Jul 27, 2017 11:10
[2017-07-27 20:00] VITALS: BP 98/69; PULSE 85; RESP 20; TEMP 99.3; O2SAT 97
[2017-07-28 00:31] VITALS: BP 101/68; PULSE 62
[2017-07-28 04:57] VITALS: BP 111/71; PULSE 62
[2017-07-28] MEDS: NIFEdipine 20 MG CAP PEG SCH ×3 (04:58→18:25)
[2017-07-28] MEDS: hydrALAZINE HCL 50 MG TAB PEG SCH ×3 (04:59→18:25)
[2017-07-28 08:27] VITALS: BP 102/74; PULSE 65; RESP 19; TEMP 97.9; O2SAT 98
--- NOTE | 2017-07-28 10:02 | HHI.PR ---
Subjective Remarks Follow-up for hemorrhagic CVA, hypertension. Patient is aphasic. Objective Vitals Vital Signs Date Time Temp Pulse Resp B/P (MAP) Pulse Ox O2 Delivery O2 Flow Rate FiO2 07/28/17 08:27 97.9 65 19 102/74 (83) 98 07/28/17 04:57 62 111/71 (84) 07/28/17 00:31 62 101/68 (79) 07/27/17 20:00 99.3 85 20 98/69 (79) 97 I/O 07/27/17 07/27/17 07/27/17 07/28/17 07/28/17 07/28/17 07:00 15:00 23:00 07:00 15:00 23:00 Intake Total 360 ml 460 ml 460 ml 490 ml Balance 360 ml 460 ml 460 ml 490 ml Intake Oral 0 ml 0 ml 0 ml Tube Feeding 240 ml 240 ml 240 ml Tube Irrigant 360 ml 220 ml 220 ml Other 250 ml # Voids 1 2 1 # Bowel Movements 0 2 0 Objective Remarks GENERAL: Well nourished well-developed patient in no apparent distress. CARDIOVASCULAR: Regular rate and rhythm. RESPIRATORY: No accessory muscle use. Clear to auscultation bilaterally but patient does not follow command to take deep breaths. GASTROINTESTINAL: Abdomen soft, nontender, nondistended. MUSCULOSKELETAL: Pitting edema is resolved over R hand and forearm. NEUROLOGICAL: Arouses, awake and alert. Aphasic. R sided facial droop. Weak grasp Left hand. Procedures Peg Tube placed 05/08/17 (Dr. De Los Santos) Urinary Catheter: No Vascular Central Line Catheter: No A/P Assessment and Plan Intracranial hemorrhage Secondary to uncontrolled hypertension and hypertensive emergency Thalamic ICH with intraventricular extension. No surgical intervention per Dr. Wang. Neurology following, ok for discharge to rehab. Continue PT/OT/ST Dysphagia suspect secondary to intracranial bleed Post PEG placement 05/09/17. Patient initially pureed diet with honey thickened liquids, tsp by tsp, but reevaluated by speech therapy on 06/14 and made NPO as she had clinical symptoms of aspiration with all consistencies. Dietary following with recommendations as below: Jevity 1.5 boluses of 240mls @ 9AM, 1PM, & 6PM and 120mls @ 9PM. Flush 30mls water before and after each bolus feeding. Additional 100ml free water flush q6hrs. Hypertension emergency/HTN: Nifedipine 40 mg q6h Lisinopril 40 mg daily Hydralazine 100 mg every 6 hours Catapres 0.3 mg patch weekly Metoprolol 100 mg twice daily HCTZ 25 mg bid with KCl 25 mEq daily, on hold currently due to hypotension. Hydralazine prn for SBP >150. Continue to monitor and adjust medication as needed. 07/28: BP remains low. Will discontinue HCTZ (and KCl). Febrile illness: Resolved. Could be secondary to occult infection or possible neurologic from CVA, hemorrhage 05/28 Chest x-ray indicated mild L lung atelectasis versus infiltrate. 05/31 Chest x-ray appears improved from prior; no focal consolidations noted. Urinalysis was normal Blood culture 05/28 NGTD S/p Levaquin 750 mg daily for total of 7 days Hypernatremia and hyperchloremia: Resolved. Likely to related to decreased by mouth intake. -S/p IVF -Monitor BMP periodically. Pre-renal azotemia: Recurrent. BUN 20 on 07/08. Cr normal. -S/p IVF -Continue free water flushes Hyperglycemia Hemoglobin A1c 6.2 Glucerna 1.5 for feeding Xeroderma on bilateral feet: Lac-Hydrin 12% Lotion continued. Oral thrush: S/p Fluconazole treatment GI Prophylaxis: Prevacid via PEG tube DVT Prophylaxis: SCDs. Chemical prophylaxis contraindicated secondary to intracranial hemorrhage Discharge Planning 07/22: Per CM patient cannot go to [facility] as she is homeless and does not have a discharge disposition in place. 07/26: SSI/ [facility] pending; info provided limited and hard to verify per CM. Yuly Shafer Jul 28, 2017 10:02
[2017-07-28] MEDS: METOPROLOL TARTRATE 100 MG TAB PEG SCH ×2 (10:07→20:13)
[2017-07-28] MEDS: LACTIC ACID (AMMONIUM LACTATE) 12% LOTION 225 GM BTL TOPICAL SCH ×2 (10:08→20:13)
[2017-07-28] MEDS: SENNOSIDES SYRUP 8.8 MG/5 ML CUP PEG SCH (10:08)
[2017-07-28] MEDS: LISINOPRIL 20 MG TAB PEG SCH (10:08)
[2017-07-28] MEDS: LANSOPRAZOLE SOLUTAB 30 MG TAB G-TUBE SCH (10:08)
[2017-07-28 17:06] VITALS: BP 105/74; PULSE 70; RESP 19; TEMP 97.9; O2SAT 99
[2017-07-28 20:26] VITALS: BP 119/67; PULSE 80; RESP 12; TEMP 98.6; O2SAT 94
[2017-07-29] MEDS: NIFEdipine 20 MG CAP PEG SCH ×4 (00:27→17:38)
[2017-07-29 00:36] VITALS: BP 121/87; PULSE 98; RESP 14; TEMP 97.8; O2SAT 95
[2017-07-29] MEDS: hydrALAZINE HCL 50 MG TAB PEG SCH ×4 (05:31→17:37)
[2017-07-29 08:00] VITALS: BP 116/83; PULSE 72; RESP 16; TEMP 97.6; O2SAT 99
[2017-07-29] MEDS: SENNOSIDES SYRUP 8.8 MG/5 ML CUP PEG SCH (09:00)
[2017-07-29] MEDS: LACTIC ACID (AMMONIUM LACTATE) 12% LOTION 225 GM BTL TOPICAL SCH ×2 (09:00→21:00)
[2017-07-29] MEDS: LANSOPRAZOLE SOLUTAB 30 MG TAB G-TUBE SCH (09:00)
[2017-07-29] MEDS: METOPROLOL TARTRATE 100 MG TAB PEG SCH ×2 (09:01→21:00)
[2017-07-29] MEDS: LISINOPRIL 20 MG TAB PEG SCH (09:03)
--- NOTE | 2017-07-29 11:10 | HHI.PR ---
Subjective Remarks Follow-up for hemorrhagic CVA, hypertension. Patient is aphasic. Objective Vitals Vital Signs Date Time Temp Pulse Resp B/P (MAP) Pulse Ox O2 Delivery O2 Flow Rate FiO2 07/29/17 08:00 97.6 72 16 116/83 (94) 99 07/29/17 00:36 97.8 98 14 121/87 (98) 95 07/28/17 20:26 98.6 80 12 119/67 (84) 94 07/28/17 17:06 97.9 70 19 105/74 (84) 99 I/O 07/28/17 07/28/17 07/28/17 07/29/17 07/29/17 07/29/17 07:00 15:00 23:00 07:00 15:00 23:00 Intake Total 490 ml 920 ml 490 ml Balance 490 ml 920 ml 490 ml Intake Oral 0 ml Tube Feeding 240 ml 480 ml 240 ml Tube Irrigant 440 ml Other 250 ml 250 ml # Voids 1 3 1 # Bowel Movements 0 1 1 Objective Remarks GENERAL: Well nourished well-developed patient in no apparent distress. EYES: Mild conjunctival injection B/L eyes which has been chronic, but worse on the left today. White discharge in the Left eye. Evaluated the patient eyes again in the afternoon and injection and drainage is resolved. CARDIOVASCULAR: Regular rate and rhythm. 2/6 murmur LLSB. RESPIRATORY: No accessory muscle use. Clear to auscultation bilaterally but patient does not follow command to take deep breaths. NEUROLOGICAL: Arouses, awake and alert. Aphasic. Does not even nod much to questions. Weak grasp Left hand. Procedures Peg Tube placed 05/08/17 (Dr. De Los Santos) Urinary Catheter: No Vascular Central Line Catheter: No A/P Assessment and Plan Intracranial hemorrhage Secondary to uncontrolled hypertension and hypertensive emergency Thalamic ICH with intraventricular extension. No surgical intervention per Dr. Wang. Neurology following, ok for discharge to rehab. Continue PT/OT/ST Dysphagia suspect secondary to intracranial bleed Post PEG placement 05/09/17. Patient initially pureed diet with honey thickened liquids, tsp by tsp, but reevaluated by speech therapy on 06/14 and made NPO as she had clinical symptoms of aspiration with all consistencies. Dietary following with recommendations as below: Jevity 1.5 boluses of 240mls @ 9AM, 1PM, & 6PM and 120mls @ 9PM. Flush 30mls water before and after each bolus feeding. Additional 100ml free water flush q6hrs. Hypertension emergency/HTN: Stable. Nifedipine 40 mg q6h Lisinopril 40 mg daily Hydralazine 100 mg every 6 hours Catapres 0.3 mg patch weekly Metoprolol 100 mg twice daily Hydralazine prn for SBP >150. Continue to monitor and adjust medication as needed. 07/28: BP remains low. HCTZ (and KCl) discontinued. 07/29: BP remains within normal limits. Febrile illness: Resolved. Could be secondary to occult infection or possible neurologic from CVA, hemorrhage 05/28 Chest x-ray indicated mild L lung atelectasis versus infiltrate. 05/31 Chest x-ray appears improved from prior; no focal consolidations noted. Urinalysis was normal Blood culture 05/28 NGTD S/p Levaquin 750 mg daily for total of 7 days Hypernatremia and hyperchloremia: Resolved. Likely to related to decreased by mouth intake. -S/p IVF -Monitor BMP periodically. Pre-renal azotemia: Recurrent. BUN 20 on 07/08. Cr normal. -S/p IVF -Continue free water flushes Hyperglycemia Hemoglobin A1c 6.2 Glucerna 1.5 for feeding Xeroderma on bilateral feet: Lac-Hydrin 12% Lotion continued. Oral thrush: S/p Fluconazole treatment GI Prophylaxis: Prevacid via PEG tube DVT Prophylaxis: SCDs. Chemical prophylaxis contraindicated secondary to intracranial hemorrhage Discharge Planning 07/22: Per CM patient cannot go to [facility] as she is homeless and does not have a discharge disposition in place. 07/26: SSI/ [facility] pending; info provided limited and hard to verify per CM. Yuly Shafer Jul 29, 2017 11:10
[2017-07-29 20:23] VITALS: BP 109/72; PULSE 74; RESP 12; TEMP 99.4; O2SAT 93
[2017-07-30 00:35] VITALS: BP 120/84; PULSE 71; RESP 16; TEMP 99.6; O2SAT 98
[2017-07-30] MEDS: NIFEdipine 20 MG CAP PEG SCH ×4 (00:43→18:01)
[2017-07-30] MEDS: hydrALAZINE HCL 50 MG TAB PEG SCH ×4 (00:43→18:01)
[2017-07-30 05:11] VITALS: BP 103/75; PULSE 77; RESP 16; O2SAT 95
[2017-07-30 08:00] VITALS: BP 120/87; PULSE 70; RESP 16; TEMP 98.8; O2SAT 99
[2017-07-30] MEDS: SENNOSIDES SYRUP 8.8 MG/5 ML CUP PEG SCH (09:29)
[2017-07-30] MEDS: LANSOPRAZOLE SOLUTAB 30 MG TAB G-TUBE SCH (09:30)
[2017-07-30] MEDS: METOPROLOL TARTRATE 100 MG TAB PEG SCH ×2 (09:30→21:48)
[2017-07-30] MEDS: LACTIC ACID (AMMONIUM LACTATE) 12% LOTION 225 GM BTL TOPICAL SCH ×2 (09:30→21:49)
[2017-07-30] MEDS: LISINOPRIL 20 MG TAB PEG SCH (09:30)
--- NOTE | 2017-07-30 11:33 | HHI.PR ---
Subjective Remarks Follow-up for hemorrhagic CVA, hypertension. Aphasic. Nods her head "yes" when I ask her if she is okay. RN is concerned about some spots of black discoloration to the patient's feet and she has removed the JELANI hose from covering her feet. Objective Vitals Vital Signs Date Time Temp Pulse Resp B/P (MAP) Pulse Ox O2 Delivery O2 Flow Rate FiO2 07/30/17 05:11 77 16 103/75 (84) 95 07/30/17 00:35 99.6 71 16 120/84 (96) 98 07/29/17 20:23 99.4 74 12 109/72 (84) 93 I/O 07/29/17 07/29/17 07/29/17 07/30/17 07/30/17 07/30/17 07:00 15:00 23:00 07:00 15:00 23:00 Intake Total 490 ml Balance 490 ml Tube Feeding 240 ml Other 250 ml # Voids 0 1 Objective Remarks GENERAL: Well nourished well-developed patient in no apparent distress. SKIN: Circular calloused area of black discoloration over the dorsal lateral R 5th toe. Similar subcentimeter circular black areas to medial left 1st MTP joint and lateral left 5th toe. Toenails are extremely long and B/L 5th toenails are black in discoloration with disruption of the eponychium on the R 5th toe. CARDIOVASCULAR: Regular rate and rhythm. 2/6 murmur LLSB. RESPIRATORY: No accessory muscle use. Clear to auscultation bilaterally although limited as patient does not take deep breaths. GASTROINTESTINAL: Abdomen soft, non-tender, non-distended. NEUROLOGICAL: Sleeping but arouses to voice, awake and alert. Aphasic. Barely can lift left leg off of the bed. Weak grasp Left hand. Procedures Peg Tube placed 05/08/17 (Dr. De Los Santos) Urinary Catheter: No Vascular Central Line Catheter: No A/P Assessment and Plan 07/30: Possible pressure wounds over the feet, possibly from JELANI hose?. RN has removed from feet and placed in foam heel boots. Podiatry consulted to trim toenails. Intracranial hemorrhage Secondary to uncontrolled hypertension and hypertensive emergency Thalamic ICH with intraventricular extension. No surgical intervention per Dr. Wang. Neurology following, ok for discharge to rehab. Continue PT/OT/ST Dysphagia suspect secondary to intracranial bleed Post PEG placement 05/09/17. Patient initially pureed diet with honey thickened liquids, tsp by tsp, but reevaluated by speech therapy on 06/14 and made NPO as she had clinical symptoms of aspiration with all consistencies. Dietary following with recommendations as below: Jevity 1.5 boluses of 240mls @ 9AM, 1PM, & 6PM and 120mls @ 9PM. Flush 30mls water before and after each bolus feeding. Additional 100ml free water flush q6hrs. Hypertension emergency/HTN: Stable. Nifedipine 40 mg q6h Lisinopril 40 mg daily Hydralazine 100 mg every 6 hours Catapres 0.3 mg patch weekly Metoprolol 100 mg twice daily Hydralazine prn for SBP >150. Continue to monitor and adjust medication as needed. 07/28: BP remains low. HCTZ (and KCl) discontinued. 07/30: BP remains within normal limits. Febrile illness: Resolved. Could be secondary to occult infection or possible neurologic from CVA, hemorrhage 05/28 Chest x-ray indicated mild L lung atelectasis versus infiltrate. 05/31 Chest x-ray appears improved from prior; no focal consolidations noted. Urinalysis was normal Blood culture 05/28 NGTD S/p Levaquin 750 mg daily for total of 7 days Hypernatremia and hyperchloremia: Resolved. Likely to related to decreased by mouth intake. -S/p IVF -Monitor BMP periodically. Pre-renal azotemia: Recurrent. BUN 20 on 07/08. Cr normal. -S/p IVF -Continue free water flushes Hyperglycemia Hemoglobin A1c 6.2 Glucerna 1.5 for feeding Xeroderma on bilateral feet: Lac-Hydrin 12% Lotion continued. Oral thrush: S/p Fluconazole treatment GI Prophylaxis: Prevacid via PEG tube DVT Prophylaxis: SCDs. Chemical prophylaxis contraindicated secondary to intracranial hemorrhage Discharge Planning 07/22: Per CM patient cannot go to [facility] as she is homeless and does not have a discharge disposition in place. 07/26: SSI/ [facility] pending; info provided limited and hard to verify per CM. Yuly Shafer Jul 30, 2017 11:33
[2017-07-30 20:00] VITALS: BP 146/101; PULSE 86; RESP 20; TEMP 97.6; O2SAT 99
[2017-07-31 00:34] VITALS: BP 146/99; PULSE 64
[2017-07-31] MEDS: NIFEdipine 20 MG CAP PEG SCH ×4 (00:36→17:56)
[2017-07-31] MEDS: hydrALAZINE HCL 50 MG TAB PEG SCH ×4 (00:36→17:56)
[2017-07-31 05:56] VITALS: BP 137/90; PULSE 68
[2017-07-31 08:00] VITALS: BP 118/72; PULSE 79; RESP 18; TEMP 98.1; O2SAT 95
[2017-07-31] MEDS: LACTIC ACID (AMMONIUM LACTATE) 12% LOTION 225 GM BTL TOPICAL SCH ×2 (08:54→20:38)
[2017-07-31] MEDS: LISINOPRIL 20 MG TAB PEG SCH (08:54)
[2017-07-31] MEDS: METOPROLOL TARTRATE 100 MG TAB PEG SCH ×2 (08:54→20:37)
[2017-07-31] MEDS: SENNOSIDES SYRUP 8.8 MG/5 ML CUP PEG SCH (08:54)
[2017-07-31] MEDS: LANSOPRAZOLE SOLUTAB 30 MG TAB G-TUBE SCH (08:54)
--- NOTE | 2017-07-31 09:41 | HHI.PR ---
Subjective Remarks Follow-up for hemorrhagic CVA, hypertension. Nods "yes" when I ask her if she is ok. Objective Vitals Vital Signs Date Time Temp Pulse Resp B/P (MAP) Pulse Ox O2 Delivery O2 Flow Rate FiO2 07/31/17 08:00 98.1 79 18 118/72 (87) 95 07/31/17 05:56 68 137/90 (106) 07/31/17 00:34 64 146/99 (115) 07/30/17 20:00 97.6 86 20 146/101 (116) 99 I/O 07/30/17 07/30/17 07/30/17 07/31/17 07/31/17 07/31/17 07:00 15:00 23:00 07:00 15:00 23:00 Intake Total 900 ml 490 ml Balance 900 ml 490 ml Intake Oral 0 ml 0 ml Tube Feeding 720 ml 240 ml Other 180 ml 250 ml # Voids 1 3 1 # Bowel Movements 0 0 Objective Remarks GENERAL: Well nourished well-developed patient in no apparent distress. CARDIOVASCULAR: Regular rate and rhythm. 2/6 murmur loudest at LLSB. RESPIRATORY: No accessory muscle use. Clear to auscultation bilaterally although limited as patient does not take deep breaths. GASTROINTESTINAL: Abdomen soft, non-tender, non-distended. NEUROLOGICAL: Awake and alert. Aphasic. Weak grasp Left hand. Procedures Peg Tube placed 05/08/17 (Dr. De Los Santos) Urinary Catheter: No Vascular Central Line Catheter: No A/P Assessment and Plan 07/30: Possible pressure wounds over the feet, possibly from JELANI hose?. RN has removed from feet and placed in foam heel boots. Podiatry consulted to trim toenails. Intracranial hemorrhage Secondary to uncontrolled hypertension and hypertensive emergency Thalamic ICH with intraventricular extension. No surgical intervention per Dr. Wang. Neurology following, ok for discharge to rehab. Continue PT/OT/ST Dysphagia suspect secondary to intracranial bleed Post PEG placement 05/09/17. Patient initially pureed diet with honey thickened liquids, tsp by tsp, but reevaluated by speech therapy on 06/14 and made NPO as she had clinical symptoms of aspiration with all consistencies. Dietary following with recommendations as below: Jevity 1.5 boluses of 240mls @ 9AM, 1PM, & 6PM and 120mls @ 9PM. Flush 30mls water before and after each bolus feeding. Additional 100ml free water flush q6hrs. Hypertension emergency/HTN: Stable. Nifedipine 40 mg q6h Lisinopril 40 mg daily Hydralazine 100 mg every 6 hours Catapres 0.3 mg patch weekly Metoprolol 100 mg twice daily Hydralazine prn for SBP >150. Continue to monitor and adjust medication as needed. 07/28: BP remains low. HCTZ (and KCl) discontinued. 07/31: SBP elevated in the 140s last night but returned to normal this morning. Continue to monitor. Febrile illness: Resolved. Could be secondary to occult infection or possible neurologic from CVA, hemorrhage 05/28 Chest x-ray indicated mild L lung atelectasis versus infiltrate. 05/31 Chest x-ray appears improved from prior; no focal consolidations noted. Urinalysis was normal Blood culture 05/28 NGTD S/p Levaquin 750 mg daily for total of 7 days Hypernatremia and hyperchloremia: Resolved. Likely to related to decreased by mouth intake. -S/p IVF -Monitor BMP periodically. Pre-renal azotemia: Recurrent. BUN 20 on 07/08. Cr normal. -S/p IVF -Continue free water flushes Hyperglycemia Hemoglobin A1c 6.2 Glucerna 1.5 for feeding Xeroderma on bilateral feet: Lac-Hydrin 12% Lotion continued. Oral thrush: S/p Fluconazole treatment GI Prophylaxis: Prevacid via PEG tube DVT Prophylaxis: SCDs. Chemical prophylaxis contraindicated secondary to intracranial hemorrhage Discharge Planning 07/22: Per CM patient cannot go to [place] [facility] as she is homeless and does not have a discharge disposition in place. 07/26: SSI/ [facility] pending; info provided limited and hard to verify per CM. Yuly Shafer Jul 31, 2017 09:41
[2017-07-31 20:00] VITALS: BP 116/87; PULSE 73; RESP 16; TEMP 98.7; O2SAT 99
[2017-08-01] MEDS: NIFEdipine 20 MG CAP PEG SCH ×4 (00:51→18:01)
[2017-08-01] MEDS: hydrALAZINE HCL 50 MG TAB PEG SCH ×4 (00:56→18:01)
[2017-08-01 08:00] VITALS: BP 139/82; PULSE 74; RESP 20; TEMP 97.8; O2SAT 98
[2017-08-01] MEDS: LACTIC ACID (AMMONIUM LACTATE) 12% LOTION 225 GM BTL TOPICAL SCH ×2 (08:26→21:04)
[2017-08-01] MEDS: LANSOPRAZOLE SOLUTAB 30 MG TAB G-TUBE SCH (08:26)
[2017-08-01] MEDS: METOPROLOL TARTRATE 100 MG TAB PEG SCH ×2 (08:26→20:55)
[2017-08-01] MEDS: LISINOPRIL 20 MG TAB PEG SCH (08:26)
[2017-08-01] MEDS: SENNOSIDES SYRUP 8.8 MG/5 ML CUP PEG SCH (08:26)
--- NOTE | 2017-08-01 10:58 | HHI.PR ---
Subjective Remarks Patient seen and examined today for follow-up on hemorrhagic CVA, patient lying in bed. Appears to be comfortable. She does not indicate any new complaints. Blood pressure controlled. Continuation of physical therapy Objective Vitals Vital Signs Date Time Temp Pulse Resp B/P (MAP) Pulse Ox O2 Delivery O2 Flow Rate FiO2 08/01/17 08:00 97.8 74 20 139/82 (101) 98 07/31/17 20:00 98.7 73 16 116/87 (97) 99 I/O 07/31/17 07/31/17 07/31/17 08/01/17 08/01/17 08/01/17 07:00 15:00 23:00 07:00 15:00 23:00 Intake Total 490 ml 430 ml 190 ml Balance 490 ml 430 ml 190 ml Intake Oral 0 ml Tube Feeding 240 ml 240 ml Other 250 ml 190 ml 190 ml # Voids 1 # Bowel Movements 0 Objective Remarks GENERAL: Well-developed, well-nourished, in no acute distress. Awake, responds minimally with head nods. Trying to speak HEENT: Head is normocephalic without any lesions or masses noted. Facial features are symmetric. Eyes: Conjunctivae were clear. CARDIAC: Regular rhythm, regular rate. S1/S2 are heard. 2/6 ejection, no gallops or rubs. LUNGS: Clear to auscultation bilaterally. No wheeze, rhonchi or rales. No use of accessory muscles on inspiration or expiration. ABDOMEN: Soft, nontender. Nondistended. Bowel sounds heard in all 4 quadrants. No organomegaly or masses. Negative rebound, negative guarding, PEG tube noted without any signs of infection EXTREMITIES: No edema, pulses are equal bilaterally. No cyanosis or clubbing NEUROLOGY: Patient is moving left upper extremity and able to move left foot. Patient unable to move right upper and lower extremity. Procedures Peg Tube placed 05/08/17 (Dr. De Los Santos) Urinary Catheter: No Vascular Central Line Catheter: No A/P Assessment and Plan Intracranial hemorrhage, 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 No surgical intervention per Dr. Wang, Neurology following, ok for discharge to rehab. Continue PT/OT/ST Patient is improving per therapy, they indicate patient would benefit from a acute care facility that could supply her more therapy than we can offer here Case management consulted for inpatient rehabilitation, awaiting response Dysphagia suspect secondary to intracranial bleed, Post PEG placement 05/09/17. Speech therapy was recommended patient be nothing by mouth Speech therapy to continue to follow and advance diet per exam Dietary consulted and made recommendations for bolus feeding Hypertension emergency, blood pressure stable Nifedipine 40 mg every 6 hours Lisinopril 40 mg daily Apresoline 100 mg every 6 hours Catapres TTS 3 patch Metoprolol 100 mg twice daily --Apresoline, clonidine, Vasotec as needed --Episodes of Low blood pressure, laboratory studies were performed CBC and BMP without any acute abnormality, no signs of infection. --HCTZ, KCl have been discontinued due to improvement of blood pressure Hyperglycemia Hemoglobin A1c 6.2 Glucerna 1.5 bolus tube feeding Xeroderma on bilateral feet: Lac-Hydrin 12% Lotion continued. GI Prophylaxis: Prevacid via PEG tube DVT Prophylaxis: Sequential compression devices, chemical prophylaxis contraindicated secondary to intracranial hemorrhage Discharge Planning Discharge planning per case management Kayden Kelley Aug 01, 2017 10:58
[2017-08-01] MEDS: REMOVE OLD CATAPRES (CLONIDINE) PATCH T-DERMAL SCH (15:00)
[2017-08-01] MEDS: cloNIDine HCL 0.3 MG/24 HR PATCH T-DERMAL SCH (15:25)
[2017-08-01 20:00] VITALS: BP 136/84; PULSE 96; RESP 18; TEMP 98.9; O2SAT 99
--- NOTE | 2017-08-01 21:26 | MB ---
cc: ANNE CASIANO DPM DATE OF CONSULTATION 08/01/17 TIME OF CONSULTATION 08:00 DATE OF 1955 REASON FOR CONSULTATION Painful feet. HISTORY OF PRESENT ILLNESS The patient is a 62-year-old female who was found by the EMS. She was admitted on 04/10/2017, she had a left hemorrhage to the brain with right-sided weakness. A podiatric consult was carried out for left foot painful nails. The patient was seen at bedside. There is no speech so the history was gleaned from the medical notes. PHYSICAL EXAMINATION DIRECTED EXAMINATION: The DP and PT are diminished. The lower extremities are warm. Muscle strength 0/5. The foot is in a supinated position bilaterally. There are no ulcers. There is hyperkeratotic keratomas at the left fifth digits bilaterally. The nails are elongated, thick, dystrophic bilaterally, one through five. ASSESSMENT/PLAN 1. Intracranial hemorrhage. 2. Onychomycosis. The nails 1-5 were manually debrided at bedside without complications. This was done as a consult. In-house. Given the longevity of stay for this patient. Thank you for the kind consult. Anne Casiano DPM SR/EO /9:06 PM /9:12 PM
[2017-08-02] MEDS: hydrALAZINE HCL 50 MG TAB PEG SCH ×5 (00:24→23:03)
[2017-08-02] MEDS: NIFEdipine 20 MG CAP PEG SCH ×5 (00:24→23:03)
[2017-08-02 08:00] VITALS: BP 138/84; PULSE 82; RESP 16; TEMP 96.9; O2SAT 100
[2017-08-02] MEDS: SENNOSIDES SYRUP 8.8 MG/5 ML CUP PEG SCH (08:48)
[2017-08-02] MEDS: LANSOPRAZOLE SOLUTAB 30 MG TAB G-TUBE SCH (08:48)
[2017-08-02] MEDS: METOPROLOL TARTRATE 100 MG TAB PEG SCH ×2 (08:48→21:55)
[2017-08-02] MEDS: LACTIC ACID (AMMONIUM LACTATE) 12% LOTION 225 GM BTL TOPICAL SCH ×2 (08:49→21:55)
[2017-08-02] MEDS: LISINOPRIL 20 MG TAB PEG SCH (08:49)
--- NOTE | 2017-08-02 12:06 | HHI.PR ---
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 Patient lying in bed comfortable. No change in clinical status. Awaiting case management for discharge planning Objective Vitals Vital Signs Date Time Temp Pulse Resp B/P (MAP) Pulse Ox O2 Delivery O2 Flow Rate FiO2 08/02/17 08:00 96.9 82 16 138/84 (102) 100 08/01/17 20:00 98.9 96 18 136/84 (101) 99 I/O 08/01/17 08/01/17 08/01/17 08/02/17 08/02/17 08/02/17 07:00 15:00 23:00 07:00 15:00 23:00 Intake Total 190 ml 900 ml Balance 190 ml 900 ml Tube Feeding 720 ml Other 190 ml 180 ml # Voids 3 # Bowel Movements 0 Objective Remarks GENERAL: Well-developed, well-nourished, in no acute distress. Awake, responds minimally with head nods. Trying to speak HEENT: Head is normocephalic without any lesions or masses noted. Facial features are symmetric. Eyes: Conjunctivae were clear. CARDIAC: Regular rhythm, regular rate. S1/S2 are heard. 2/6 ejection, no gallops or rubs. LUNGS: Clear to auscultation bilaterally. No wheeze, rhonchi or rales. No use of accessory muscles on inspiration or expiration. ABDOMEN: Soft, nontender. Nondistended. Bowel sounds heard in all 4 quadrants. No organomegaly or masses. Negative rebound, negative guarding, PEG tube noted without any signs of infection EXTREMITIES: No edema, pulses are equal bilaterally. No cyanosis or clubbing NEUROLOGY: Patient is moving left upper extremity and able to move left foot. Patient unable to move right upper and lower extremity. Procedures Peg Tube placed 05/08/17 (Dr. De Los Santos) Urinary Catheter: No Vascular Central Line Catheter: No A/P Assessment and Plan Intracranial hemorrhage, 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 No surgical intervention per Dr. Wang, Neurology following, ok for discharge to rehab. Continue PT/OT/ST Patient is improving per therapy, they indicate patient would benefit from a acute care facility that could supply her more therapy than we can offer here Case management consulted for inpatient rehabilitation, awaiting response Dysphagia suspect secondary to intracranial bleed, Post PEG placement 05/09/17. Speech therapy was recommended patient be nothing by mouth Speech therapy to continue to follow and advance diet per exam Dietary consulted and made recommendations for bolus feeding Hypertension emergency, blood pressure stable Nifedipine 40 mg every 6 hours Lisinopril 40 mg daily Apresoline 100 mg every 6 hours Catapres TTS 3 patch Metoprolol 100 mg twice daily --Apresoline, clonidine, Vasotec as needed --Episodes of Low blood pressure, laboratory studies were performed CBC and BMP without any acute abnormality, no signs of infection. --HCTZ, KCl have been discontinued due to improvement of blood pressure Hyperglycemia Hemoglobin A1c 6.2 Glucerna 1.5 bolus tube feeding Xeroderma on bilateral feet: Lac-Hydrin 12% Lotion continued. GI Prophylaxis: Prevacid via PEG tube DVT Prophylaxis: Sequential compression devices, chemical prophylaxis contraindicated secondary to intracranial hemorrhage Discharge Planning Discharge planning per case management Kayden Kelley Aug 02, 2017 12:06
[2017-08-02 20:00] VITALS: BP 162/98; PULSE 87; RESP 16; TEMP 98.3; O2SAT 93
[2017-08-02 23:00] VITALS: BP 139/90; PULSE 69
--- NOTE | 2017-08-03 04:40 | RADRPT ---
EXAM DATE/TIME: 08/03/2017 04:13 [facility] COMPARISON: No previous studies available for comparison. INDICATIONS : Right arm swelling. MEDICAL HISTORY : Left intracranial hemorrhage. Right hemiparesis. SURGICAL HISTORY : None. ENCOUNTER: Initial ACUITY: 1 day PAIN SCORE: Non-responsive LOCATION: Right arm. FINDINGS: There is spontaneous flow documented in the brachial, basilic, cephalic, axillary, and subclavian vei ns. The vessels are compressible and augmentation response is documented. No filling defects are se en. The flow is phasic with respiration. Direction of flow in the jugular vein is caudal. CONCLUSION: Normal examination. Adi Quarles MD on August 03, 2017 at 4:38 Board Certified Radiologist. This report was verified electronically.
[2017-08-03 05:55] VITALS: BP 153/99; PULSE 86
[2017-08-03] MEDS: NIFEdipine 20 MG CAP PEG SCH ×3 (05:58→18:27)
[2017-08-03] MEDS: hydrALAZINE HCL 50 MG TAB PEG SCH ×3 (05:58→18:00)
[2017-08-03 08:00] VITALS: BP 136/88; PULSE 93; RESP 18; TEMP 98.6; O2SAT 99
[2017-08-03] MEDS: SENNOSIDES SYRUP 8.8 MG/5 ML CUP PEG SCH (09:13)
[2017-08-03] MEDS: METOPROLOL TARTRATE 100 MG TAB PEG SCH ×2 (09:13→21:25)
[2017-08-03] MEDS: LISINOPRIL 20 MG TAB PEG SCH (09:13)
[2017-08-03] MEDS: LANSOPRAZOLE SOLUTAB 30 MG TAB G-TUBE SCH (09:13)
[2017-08-03] MEDS: LACTIC ACID (AMMONIUM LACTATE) 12% LOTION 225 GM BTL TOPICAL SCH ×2 (09:15→21:25)
--- NOTE | 2017-08-03 09:22 | HHI.PR ---
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 Patient denies any new complaints. No change in clinical status. Nursing staff concerned about the patient's swelling in her right upper extremity yesterday, they requested ultrasound performed which did not indicate any acute abnormality. I discussed with the nursing staff that this is likely related to the paralysis that she has on the right side. Objective Vitals Vital Signs Date Time Temp Pulse Resp B/P (MAP) Pulse Ox O2 Delivery O2 Flow Rate FiO2 08/03/17 08:00 98.6 93 18 136/88 (104) 99 08/03/17 05:55 86 153/99 (117) 08/02/17 23:00 69 139/90 (106) 08/02/17 20:00 98.3 87 16 162/98 (119) 93 I/O 08/02/17 08/02/17 08/02/17 08/03/17 08/03/17 08/03/17 06:59 14:59 22:59 06:59 14:59 22:59 Intake Total 0 ml Balance 0 ml Intake Oral 0 ml # Voids 3 2 2 # Bowel Movements 0 2 Objective Remarks GENERAL: Well-developed, well-nourished, in no acute distress. Awake, responds minimally with head nods. Trying to speak HEENT: Head is normocephalic without any lesions or masses noted. Facial features are symmetric. Eyes: Conjunctivae were clear. CARDIAC: Regular rhythm, regular rate. S1/S2 are heard. 2/6 ejection, no gallops or rubs. LUNGS: Clear to auscultation bilaterally. No wheeze, rhonchi or rales. No use of accessory muscles on inspiration or expiration. ABDOMEN: Soft, nontender. Nondistended. Bowel sounds heard in all 4 quadrants. No organomegaly or masses. Negative rebound, negative guarding, PEG tube noted without any signs of infection EXTREMITIES: No edema, pulses are equal bilaterally. No cyanosis or clubbing NEUROLOGY: Patient is moving left upper extremity and able to move left foot. Patient unable to move right upper and lower extremity. Procedures Peg Tube placed 05/08/17 (Dr. De Los Santos) Urinary Catheter: No Vascular Central Line Catheter: No A/P Assessment and Plan Intracranial hemorrhage, 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 No surgical intervention per Dr. Wang, Neurology following, ok for discharge to rehab. Continue PT/OT/ST Patient is improving per therapy, they indicate patient would benefit from a acute care facility that could supply her more therapy than we can offer here Case management consulted for inpatient rehabilitation, awaiting response Dysphagia suspect secondary to intracranial bleed, Post PEG placement 05/09/17. Speech therapy was recommended patient be nothing by mouth Speech therapy to continue to follow and advance diet per exam Dietary consulted and made recommendations for bolus feeding Hypertension emergency, blood pressure stable Nifedipine 40 mg every 6 hours Lisinopril 40 mg daily Apresoline 100 mg every 6 hours Catapres TTS 3 patch Metoprolol 100 mg twice daily --Apresoline, clonidine, Vasotec as needed --Episodes of Low blood pressure, laboratory studies were performed CBC and BMP without any acute abnormality, no signs of infection. --HCTZ, KCl have been discontinued due to improvement of blood pressure Hyperglycemia Hemoglobin A1c 6.2 Glucerna 1.5 bolus tube feeding Xeroderma on bilateral feet: Lac-Hydrin 12% Lotion continued. GI Prophylaxis: Prevacid via PEG tube DVT Prophylaxis: Sequential compression devices, chemical prophylaxis contraindicated secondary to intracranial hemorrhage Discharge Planning Discharge planning per case management Kayden Kelley Aug 03, 2017 09:22
[2017-08-03 20:00] VITALS: BP 118/80; PULSE 94; RESP 18; TEMP 98.7; O2SAT 99
[2017-08-04] MEDS: NIFEdipine 20 MG CAP PEG SCH ×4 (00:29→18:02)
[2017-08-04 04:00] VITALS: BP 146/107
[2017-08-04 04:30] VITALS: BP 142/88
[2017-08-04] MEDS: hydrALAZINE HCL 50 MG TAB PEG SCH ×4 (05:48→18:04)
[2017-08-04 08:00] VITALS: BP 142/89; PULSE 95; RESP 20; TEMP 99.2; O2SAT 98
[2017-08-04] MEDS: METOPROLOL TARTRATE 100 MG TAB PEG SCH ×2 (08:53→21:01)
[2017-08-04] MEDS: LACTIC ACID (AMMONIUM LACTATE) 12% LOTION 225 GM BTL TOPICAL SCH ×2 (08:53→21:02)
[2017-08-04] MEDS: LISINOPRIL 20 MG TAB PEG SCH (08:53)
[2017-08-04] MEDS: LANSOPRAZOLE SOLUTAB 30 MG TAB G-TUBE SCH (08:53)
[2017-08-04] MEDS: SENNOSIDES SYRUP 8.8 MG/5 ML CUP PEG SCH (08:53)
--- NOTE | 2017-08-04 11:53 | HHI.PR ---
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 Patient lying in bed, resting carefully. No change in clinical status. Objective Vitals Vital Signs Date Time Temp Pulse Resp B/P (MAP) Pulse Ox O2 Delivery O2 Flow Rate FiO2 08/04/17 08:00 99.2 95 20 142/89 (106) 98 08/04/17 04:30 142/88 (106) 08/04/17 04:00 146/107 (120) 08/03/17 20:00 98.7 94 18 118/80 (93) 99 I/O 08/03/17 08/03/17 08/03/17 08/04/17 08/04/17 08/04/17 07:00 15:00 23:00 07:00 15:00 23:00 Intake Total 0 ml Balance 0 ml Intake Oral 0 ml # Voids 2 3 1 3 # Bowel Movements 2 1 1 2 Objective Remarks GENERAL: Well-developed, well-nourished, in no acute distress. Awake, responds minimally with head nods. Trying to speak HEENT: Head is normocephalic without any lesions or masses noted. Facial features are symmetric. Eyes: Conjunctivae were clear. CARDIAC: Regular rhythm, regular rate. S1/S2 are heard. 2/6 ejection, no gallops or rubs. LUNGS: Clear to auscultation bilaterally. No wheeze, rhonchi or rales. No use of accessory muscles on inspiration or expiration. ABDOMEN: Soft, nontender. Nondistended. Bowel sounds heard in all 4 quadrants. No organomegaly or masses. Negative rebound, negative guarding, PEG tube noted without any signs of infection EXTREMITIES: No edema, pulses are equal bilaterally. No cyanosis or clubbing NEUROLOGY: Patient is moving left upper extremity and able to move left foot. Patient unable to move right upper and lower extremity. Procedures Peg Tube placed 05/08/17 (Dr. De Los Santos) Urinary Catheter: No Vascular Central Line Catheter: No A/P Assessment and Plan Intracranial hemorrhage, 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 No surgical intervention per Dr. Wang, Neurology following, ok for discharge to rehab. Continue PT/OT/ST Patient is improving per therapy, they indicate patient would benefit from a acute care facility that could supply her more therapy than we can offer here Case management consulted for inpatient rehabilitation, awaiting response Dysphagia suspect secondary to intracranial bleed, Post PEG placement 05/09/17. Speech therapy was recommended patient be nothing by mouth Speech therapy to continue to follow and advance diet per exam Dietary consulted and made recommendations for bolus feeding Hypertension emergency, blood pressure stable Nifedipine 40 mg every 6 hours Lisinopril 40 mg daily Apresoline 100 mg every 6 hours Catapres TTS 3 patch Metoprolol 100 mg twice daily --Restart HCTZ 25 mg daily --Apresoline, clonidine, Vasotec as needed Hyperglycemia Hemoglobin A1c 6.2 Glucerna 1.5 bolus tube feeding Xeroderma on bilateral feet: Lac-Hydrin 12% Lotion continued. GI Prophylaxis: Prevacid via PEG tube DVT Prophylaxis: Sequential compression devices, chemical prophylaxis contraindicated secondary to intracranial hemorrhage Discharge Planning Discharge planning per case management Kayden Kelley Aug 04, 2017 11:53
[2017-08-04] MEDS: HYDROCHLOROTHIAZIDE 25 MG TAB PO SCH (12:50)
[2017-08-04 21:19] VITALS: BP 117/71; PULSE 67; RESP 16; TEMP 98.7; O2SAT 96
[2017-08-05] MEDS: NIFEdipine 20 MG CAP PEG SCH ×5 (01:15→23:43)
[2017-08-05] MEDS: hydrALAZINE HCL 50 MG TAB PEG SCH ×5 (06:31→23:43)
[2017-08-05 08:00] VITALS: BP 101/75; PULSE 72; RESP 18; TEMP 98.7; O2SAT 98
--- NOTE | 2017-08-05 08:42 | HHI.PR ---
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 Patient resting carefully. No indication of any new complaints. No change in clinical status. Objective Vitals Vital Signs Date Time Temp Pulse Resp B/P (MAP) Pulse Ox O2 Delivery O2 Flow Rate FiO2 08/04/17 21:19 98.7 67 16 117/71 (86) 96 I/O 08/04/17 08/04/17 08/04/17 08/05/17 08/05/17 08/05/17 07:00 15:00 23:00 07:00 15:00 23:00 Intake Total 440 ml Balance 440 ml IV Total 0 ml Tube Feeding 240 ml Other 200 ml # Voids 3 2 3 # Bowel Movements 2 0 Objective Remarks GENERAL: Well-developed, well-nourished, in no acute distress. Awake, responds minimally with head nods. Trying to speak HEENT: Head is normocephalic without any lesions or masses noted. Facial features are symmetric. Eyes: Conjunctivae were clear. CARDIAC: Regular rhythm, regular rate. S1/S2 are heard. 2/6 ejection, no gallops or rubs. LUNGS: Clear to auscultation bilaterally. No wheeze, rhonchi or rales. No use of accessory muscles on inspiration or expiration. ABDOMEN: Soft, nontender. Nondistended. Bowel sounds heard in all 4 quadrants. No organomegaly or masses. Negative rebound, negative guarding, PEG tube noted without any signs of infection EXTREMITIES: No edema, pulses are equal bilaterally. No cyanosis or clubbing NEUROLOGY: Patient is moving left upper extremity and able to move left foot. Patient unable to move right upper and lower extremity. Procedures Peg Tube placed 05/08/17 (Dr. De Los Santos) Urinary Catheter: No Vascular Central Line Catheter: No A/P Assessment and Plan Intracranial hemorrhage, 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 Neurosurgery evaluated patient states no surgical intervention Continue PT/OT/ST Consulted as indicated patient is stable to be discharged to rehabilitation facility Patient is improving per therapy, they indicate patient would benefit from a acute care facility that could supply her more therapy than we can offer here Case management consulted for inpatient rehabilitation, who indicated patient is homeless, no discharge disposition and therefore no intention for her to go to inpatient rehabilitation Dysphagia suspect secondary to intracranial bleed, Post PEG placement 05/09/17. Speech therapy indicates patient is nothing by mouth, to continue to follow and advance diet per exam Dietary consulted and made recommendations for bolus feeding Hypertension emergency, blood pressure stable Nifedipine 40 mg every 6 hours Lisinopril 40 mg daily Apresoline 100 mg every 6 hours Catapres TTS 3 patch Metoprolol 100 mg twice daily HCTZ 25 mg daily Apresoline, clonidine, Vasotec as needed Hyperglycemia Hemoglobin A1c 6.2 Glucerna 1.5 bolus tube feeding Xeroderma on bilateral feet: Lac-Hydrin 12% Lotion continued. GI Prophylaxis: Prevacid via PEG tube DVT Prophylaxis: Sequential compression devices, chemical prophylaxis contraindicated secondary to intracranial hemorrhage Records reviewed, no change in treatment plan, awaiting rn case manager discharge planning Discharge Planning Discharge planning per case management Kayden Kelley Aug 05, 2017 08:42
[2017-08-05 10:36] VITALS: BP 120/80; PULSE 69; RESP 18
[2017-08-05] MEDS: SENNOSIDES SYRUP 8.8 MG/5 ML CUP PEG SCH (10:37)
[2017-08-05] MEDS: HYDROCHLOROTHIAZIDE 25 MG TAB PO SCH (10:37)
[2017-08-05] MEDS: LANSOPRAZOLE SOLUTAB 30 MG TAB G-TUBE SCH (10:37)
[2017-08-05] MEDS: METOPROLOL TARTRATE 100 MG TAB PEG SCH ×2 (10:37→20:57)
[2017-08-05] MEDS: LACTIC ACID (AMMONIUM LACTATE) 12% LOTION 225 GM BTL TOPICAL SCH ×2 (10:38→20:57)
[2017-08-05] MEDS: LISINOPRIL 20 MG TAB PEG SCH (10:38)
[2017-08-05 12:47] VITALS: BP 99/67; PULSE 60; RESP 18
[2017-08-05 17:21] VITALS: BP 104/79; PULSE 60; RESP 18
[2017-08-05 21:35] VITALS: BP 120/85; PULSE 71; RESP 16; TEMP 98.3; O2SAT 98
[2017-08-06 04:35] VITALS: BP 133/81; PULSE 68
[2017-08-06] MEDS: NIFEdipine 20 MG CAP PEG SCH ×3 (05:56→17:55)
[2017-08-06] MEDS: hydrALAZINE HCL 50 MG TAB PEG SCH ×3 (05:56→17:58)
[2017-08-06 08:00] VITALS: BP 114/71; PULSE 81; RESP 18; TEMP 98.2; O2SAT 98
--- NOTE | 2017-08-06 08:16 | HHI.PR ---
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 Patient was running lower blood pressure yesterday and blood pressure medication was held 2 times. Patient blood pressure medication has been given and blood pressure appears to be improved today. Objective Vitals Vital Signs Date Time Temp Pulse Resp B/P (MAP) Pulse Ox O2 Delivery O2 Flow Rate FiO2 08/06/17 04:35 68 133/81 (98) 08/05/17 21:35 98.3 71 16 120/85 (97) 98 08/05/17 17:21 60 18 104/79 (87) 08/05/17 12:47 60 18 99/67 (78) 08/05/17 10:36 69 18 120/80 (93) I/O 08/05/17 08/05/17 08/05/17 08/06/17 08/06/17 08/06/17 07:00 15:00 23:00 07:00 15:00 23:00 Intake Total 440 ml 0 ml 1700 ml 360 ml Balance 440 ml 0 ml 1700 ml 360 ml Intake Oral 0 ml IV Total 0 ml Tube Feeding 240 ml 960 ml Tube Irrigant 240 ml 360 ml Other 200 ml 500 ml # Voids 3 2 3 # Bowel Movements 0 1 0 Objective Remarks GENERAL: Well-developed, well-nourished, in no acute distress. Awake, responds minimally with head nods. Trying to speak HEENT: Head is normocephalic without any lesions or masses noted. Facial features are symmetric. Eyes: Conjunctivae were clear. CARDIAC: Regular rhythm, regular rate. S1/S2 are heard. 2/6 ejection, no gallops or rubs. LUNGS: Clear to auscultation bilaterally. No wheeze, rhonchi or rales. No use of accessory muscles on inspiration or expiration. ABDOMEN: Soft, nontender. Nondistended. Bowel sounds heard in all 4 quadrants. No organomegaly or masses. Negative rebound, negative guarding, PEG tube noted without any signs of infection EXTREMITIES: No edema, pulses are equal bilaterally. No cyanosis or clubbing NEUROLOGY: Patient is moving left upper extremity and able to move left foot. Patient unable to move right upper and lower extremity. Procedures Peg Tube placed 05/08/17 (Dr. De Los Santos) Urinary Catheter: No Vascular Central Line Catheter: No A/P Assessment and Plan Intracranial hemorrhage, 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 Neurosurgery evaluated patient states no surgical intervention Continue PT/OT/ST Consulted as indicated patient is stable to be discharged to rehabilitation facility Patient is improving per therapy, they indicate patient would benefit from a acute care facility that could supply her more therapy than we can offer here Case management consulted for inpatient rehabilitation, who indicated patient is homeless, no discharge disposition and therefore no intention for her to go to inpatient rehabilitation Dysphagia suspect secondary to intracranial bleed, Post PEG placement 05/09/17. Speech therapy indicates patient is nothing by mouth, to continue to follow and advance diet per exam Dietary consulted and made recommendations for bolus feeding Hypertension emergency, blood pressure stable Nifedipine 40 mg every 6 hours, held that 1200 and 1700 yesterday Lisinopril 40 mg daily Apresoline 100 mg every 6 hours, held that 1200 and 1700 yesterday Catapres TTS 3 patch Metoprolol 100 mg twice daily HCTZ 25 mg daily Apresoline, clonidine, Vasotec as needed Hyperglycemia Hemoglobin A1c 6.2 Glucerna 1.5 bolus tube feeding Xeroderma on bilateral feet: Lac-Hydrin 12% Lotion continued. GI Prophylaxis: Prevacid via PEG tube DVT Prophylaxis: Sequential compression devices, chemical prophylaxis contraindicated secondary to intracranial hemorrhage awaiting medical case manager discharge planning, Records reviewed, no change in treatment plan, Discharge Planning Discharge planning per case management Kayden Kelley Aug 06, 2017 08:16
[2017-08-06] MEDS: LANSOPRAZOLE SOLUTAB 30 MG TAB G-TUBE SCH (09:08)
[2017-08-06] MEDS: LACTIC ACID (AMMONIUM LACTATE) 12% LOTION 225 GM BTL TOPICAL SCH ×2 (09:09→21:34)
[2017-08-06] MEDS: SENNOSIDES SYRUP 8.8 MG/5 ML CUP PEG SCH (09:09)
[2017-08-06] MEDS: HYDROCHLOROTHIAZIDE 25 MG TAB PO SCH (09:09)
[2017-08-06] MEDS: METOPROLOL TARTRATE 100 MG TAB PEG SCH ×2 (09:09→21:34)
[2017-08-06] MEDS: LISINOPRIL 20 MG TAB PEG SCH (09:09)
[2017-08-06 12:21] VITALS: BP 117/77; PULSE 66; RESP 18
[2017-08-06 17:51] VITALS: BP 119/85; PULSE 65; RESP 18
[2017-08-06 20:29] VITALS: BP 126/83; PULSE 85; RESP 18; TEMP 98.9; O2SAT 99
[2017-08-07] MEDS: hydrALAZINE HCL 50 MG TAB PEG SCH ×5 (00:02→23:31)
[2017-08-07] MEDS: NIFEdipine 20 MG CAP PEG SCH ×5 (00:02→23:31)
[2017-08-07 08:00] VITALS: BP 116/86; PULSE 83; RESP 20; TEMP 98.1; O2SAT 95
--- NOTE | 2017-08-07 08:00 | HHI.PR ---
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 Patient resting comfortably. No new complaints. No change in clinical status. Awaiting case management for discharge planning Objective Vitals Vital Signs Date Time Temp Pulse Resp B/P (MAP) Pulse Ox O2 Delivery O2 Flow Rate FiO2 08/06/17 20:29 98.9 85 18 126/83 (97) 99 08/06/17 17:51 65 18 119/85 (96) 08/06/17 12:21 66 18 117/77 (90) 08/06/17 08:00 98.2 81 18 114/71 (85) 98 I/O 08/06/17 08/06/17 08/06/17 08/07/17 08/07/17 08/07/17 07:00 15:00 23:00 07:00 15:00 23:00 Intake Total 360 ml 0 ml 160 ml Balance 360 ml 0 ml 160 ml Intake Oral 0 ml Tube Irrigant 360 ml Other 160 ml # Voids 3 2 2 # Bowel Movements 0 1 Objective Remarks GENERAL: Well-developed, well-nourished, in no acute distress. Awake, responds minimally with head nods. Trying to speak HEENT: Head is normocephalic without any lesions or masses noted. Facial features are symmetric. Eyes: Conjunctivae were clear. CARDIAC: Regular rhythm, regular rate. S1/S2 are heard. 2/6 ejection, no gallops or rubs. LUNGS: Clear to auscultation bilaterally. No wheeze, rhonchi or rales. No use of accessory muscles on inspiration or expiration. ABDOMEN: Soft, nontender. Nondistended. Bowel sounds heard in all 4 quadrants. No organomegaly or masses. Negative rebound, negative guarding, PEG tube noted without any signs of infection EXTREMITIES: No edema, pulses are equal bilaterally. No cyanosis or clubbing NEUROLOGY: Patient is moving left upper extremity and able to move left foot. Patient unable to move right upper and lower extremity. Procedures Peg Tube placed 05/08/17 (Dr. De Los Santos) Urinary Catheter: No Vascular Central Line Catheter: No A/P Assessment and Plan Intracranial hemorrhage, 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 Neurosurgery evaluated patient states no surgical intervention Continue PT/OT/ST Consulted as indicated patient is stable to be discharged to rehabilitation facility Patient is improving per therapy, they indicate patient would benefit from a acute care facility that could supply her more therapy than we can offer here Case management consulted for inpatient rehabilitation, who indicated patient is homeless, no discharge disposition Dysphagia suspect secondary to intracranial bleed, Post PEG placement 05/09/17. Speech therapy indicates patient is nothing by mouth, to continue to follow and advance diet per exam Dietary consulted and made recommendations for bolus feeding Hypertension emergency, blood pressure stable Nifedipine 40 mg every 6 hours Lisinopril 40 mg daily Apresoline 100 mg every 6 hours Catapres TTS 3 patch Metoprolol 100 mg twice daily HCTZ 25 mg daily Apresoline, clonidine, Vasotec as needed Hyperglycemia Hemoglobin A1c 6.2 Glucerna 1.5 bolus tube feeding Xeroderma on bilateral feet: Lac-Hydrin 12% Lotion continued. GI Prophylaxis: Prevacid via PEG tube DVT Prophylaxis: Sequential compression devices, chemical prophylaxis contraindicated secondary to intracranial hemorrhage Records reviewed, no change in treatment plan, awaiting correctional case records supervisor discharge planning, Discharge Planning Discharge planning per case management Kayden Kelley Aug 07, 2017 08:00
[2017-08-07] MEDS: SENNOSIDES SYRUP 8.8 MG/5 ML CUP PEG SCH (09:00)
[2017-08-07] MEDS: LANSOPRAZOLE SOLUTAB 30 MG TAB G-TUBE SCH (09:17)
[2017-08-07] MEDS: LISINOPRIL 20 MG TAB PEG SCH (09:18)
[2017-08-07] MEDS: METOPROLOL TARTRATE 100 MG TAB PEG SCH ×2 (09:18→20:14)
[2017-08-07] MEDS: LACTIC ACID (AMMONIUM LACTATE) 12% LOTION 225 GM BTL TOPICAL SCH ×2 (09:18→20:15)
[2017-08-07] MEDS: HYDROCHLOROTHIAZIDE 25 MG TAB PO SCH (09:18)
[2017-08-07 12:15] VITALS: BP 110/75; PULSE 60; RESP 18
[2017-08-07 17:00] VITALS: BP 108/80; PULSE 60; RESP 18
[2017-08-07 20:00] VITALS: BP 118/79; PULSE 63; RESP 16; TEMP 98.5; O2SAT 98
[2017-08-07 23:30] VITALS: BP 103/72; PULSE 71
[2017-08-08] MEDS: NIFEdipine 20 MG CAP PEG SCH ×4 (05:21→23:21)
[2017-08-08] MEDS: hydrALAZINE HCL 50 MG TAB PEG SCH ×4 (05:22→23:22)
[2017-08-08 08:00] VITALS: BP 128/87; PULSE 73; RESP 18; TEMP 98.9; O2SAT 96
--- NOTE | 2017-08-08 08:20 | HHI.PR ---
Subjective Remarks Follow-up for hemorrhagic CVA, hypertension. Nods her head yes when I ask her if she is alright. Objective Vitals Vital Signs Date Time Temp Pulse Resp B/P (MAP) Pulse Ox O2 Delivery O2 Flow Rate FiO2 08/07/17 23:30 71 103/72 (82) 08/07/17 20:00 98.5 63 16 118/79 (92) 98 08/07/17 17:00 60 18 108/80 (89) 08/07/17 12:15 60 18 110/75 (87) I/O 08/07/17 08/07/17 08/07/17 08/08/17 08/08/17 08/08/17 07:00 15:00 23:00 07:00 15:00 23:00 Intake Total 160 ml 1040 ml 640 ml Balance 160 ml 1040 ml 640 ml Intake Oral 0 ml Tube Feeding 720 ml 240 ml Tube Irrigant 320 ml 400 ml Other 160 ml # Voids 2 1 # Bowel Movements 1 0 Objective Remarks GENERAL: Well nourished well-developed patient in no apparent distress. CARDIOVASCULAR: Regular rate and rhythm. 2/6 murmur loudest at LLSB. RESPIRATORY: No accessory muscle use. Clear to auscultation bilaterally. GASTROINTESTINAL: Abdomen soft, non-tender, non-distended. NEUROLOGICAL: Awake and alert. Aphasic. Weak grasp Left hand. Procedures Peg Tube placed 05/08/17 (Dr. De Los Santos) Urinary Catheter: No Vascular Central Line Catheter: No A/P Assessment and Plan 07/30: Possible pressure wounds over the feet, possibly from JELANI hose?. RN has removed from feet and placed in foam heel boots. Podiatry consulted to trim toenails. Intracranial hemorrhage Secondary to uncontrolled hypertension and hypertensive emergency Thalamic ICH with intraventricular extension. No surgical intervention per Dr. Wang. Neurology following, ok for discharge to rehab. Continue PT/OT/ST Dysphagia suspect secondary to intracranial bleed Post PEG placement 05/09/17. Patient initially pureed diet with honey thickened liquids, tsp by tsp, but reevaluated by speech therapy on 06/14 and made NPO as she had clinical symptoms of aspiration with all consistencies. Dietary following with recommendations as below: Jevity 1.5 boluses of 240mls @ 9AM, 1PM, & 6PM and 120mls @ 9PM. Flush 30mls water before and after each bolus feeding. Additional 100ml free water flush q6hrs. Hypertension emergency/HTN: Stable. Nifedipine 40 mg q6h Lisinopril 40 mg daily Hydralazine 100 mg every 6 hours Catapres 0.3 mg patch weekly Metoprolol 100 mg twice daily HCTZ 25 mg po daily, restarted on 08/04. Hydralazine prn for SBP >150. 08/08: BP remains controlled on current regimen. Continue to monitor and adjust medication as needed. Febrile illness: Resolved. Could be secondary to occult infection or possible neurologic from CVA, hemorrhage 05/28 Chest x-ray indicated mild L lung atelectasis versus infiltrate. 05/31 Chest x-ray appears improved from prior; no focal consolidations noted. Urinalysis was normal Blood culture 05/28 NGTD S/p Levaquin 750 mg daily for total of 7 days Hypernatremia and hyperchloremia: Resolved. Likely to related to decreased by mouth intake. -S/p IVF -Monitor BMP periodically. Pre-renal azotemia: Recurrent. BUN 20 on 07/08. Cr normal. -S/p IVF -Continue free water flushes Hyperglycemia Hemoglobin A1c 6.2 Glucerna 1.5 for feeding Xeroderma on bilateral feet: Lac-Hydrin 12% Lotion continued. Oral thrush: S/p Fluconazole treatment GI Prophylaxis: Prevacid via PEG tube DVT Prophylaxis: SCDs. Chemical prophylaxis contraindicated secondary to intracranial hemorrhage Discharge Planning 07/22: Per CM patient cannot go to [facility] as she is homeless and does not have a discharge disposition in place. 07/26: SSI/ B[facility]RA pending; info provided limited and hard to verify per CM. Yuly Shafer Aug 08, 2017 08:20
[2017-08-08] MEDS: SENNOSIDES SYRUP 8.8 MG/5 ML CUP PEG SCH (09:00)
[2017-08-08] MEDS: LANSOPRAZOLE SOLUTAB 30 MG TAB G-TUBE SCH (09:14)
[2017-08-08] MEDS: METOPROLOL TARTRATE 100 MG TAB PEG SCH ×2 (09:14→22:36)
[2017-08-08] MEDS: HYDROCHLOROTHIAZIDE 25 MG TAB PO SCH (09:15)
[2017-08-08] MEDS: LACTIC ACID (AMMONIUM LACTATE) 12% LOTION 225 GM BTL TOPICAL SCH ×2 (09:15→22:36)
[2017-08-08] MEDS: LISINOPRIL 20 MG TAB PEG SCH (09:15)
[2017-08-08] MEDS: cloNIDine HCL 0.3 MG/24 HR PATCH T-DERMAL SCH (15:00)
[2017-08-08] MEDS: REMOVE OLD CATAPRES (CLONIDINE) PATCH T-DERMAL SCH (15:00)
[2017-08-08 20:00] VITALS: BP 141/97; PULSE 72; RESP 20; TEMP 98.7; O2SAT 100
[2017-08-09] MEDS: NIFEdipine 20 MG CAP PEG SCH ×4 (06:18→23:33)
[2017-08-09] MEDS: hydrALAZINE HCL 50 MG TAB PEG SCH ×4 (06:18→23:33)
[2017-08-09 08:00] VITALS: BP 125/76; PULSE 82; RESP 18; TEMP 96.9; O2SAT 95
[2017-08-09] MEDS: HYDROCHLOROTHIAZIDE 25 MG TAB PO SCH (08:55)
[2017-08-09] MEDS: METOPROLOL TARTRATE 100 MG TAB PEG SCH ×2 (08:55→20:44)
[2017-08-09] MEDS: LISINOPRIL 20 MG TAB PEG SCH (08:55)
[2017-08-09] MEDS: SENNOSIDES SYRUP 8.8 MG/5 ML CUP PEG SCH (08:55)
[2017-08-09] MEDS: LACTIC ACID (AMMONIUM LACTATE) 12% LOTION 225 GM BTL TOPICAL SCH ×2 (08:56→20:44)
[2017-08-09] MEDS: LANSOPRAZOLE SOLUTAB 30 MG TAB G-TUBE SCH (08:56)
--- NOTE | 2017-08-09 09:01 | HHI.PR ---
Subjective Remarks Follow-up for hemorrhagic CVA, hypertension. Objective Vitals Vital Signs Date Time Temp Pulse Resp B/P (MAP) Pulse Ox O2 Delivery O2 Flow Rate FiO2 08/08/17 20:00 98.7 72 20 141/97 (112) 100 I/O 08/08/17 08/08/17 08/08/17 08/09/17 08/09/17 08/09/17 07:00 15:00 23:00 07:00 15:00 23:00 Intake Total 640 ml 420 ml Output Total 201 ml 300 ml Balance 640 ml -201 ml 120 ml Intake Oral 0 ml Tube Feeding 240 ml 240 ml Tube Irrigant 400 ml Other 180 ml Output Urine Total 200 ml 300 ml Stool Total 1 ml # Voids 1 3 # Bowel Movements 0 0 0 Objective Remarks GENERAL: Well nourished well-developed patient in no apparent distress sleeping when I enter the room. CARDIOVASCULAR: Regular rate and rhythm. 2/6 murmur. RESPIRATORY: No accessory muscle use. Clear to auscultation bilaterally. GASTROINTESTINAL: Abdomen soft, non-tender, non-distended. NEUROLOGICAL: Arouses but goes back to sleep. Aphasic. Procedures Peg Tube placed 05/08/17 (Dr. De Los Santos) Urinary Catheter: No Vascular Central Line Catheter: No A/P Assessment and Plan Intracranial hemorrhage Secondary to uncontrolled hypertension and hypertensive emergency Thalamic ICH with intraventricular extension. No surgical intervention per Dr. Wang. Neurology following, ok for discharge to rehab. Continue PT/OT/ST Dysphagia suspect secondary to intracranial bleed Post PEG placement 05/09/17. Patient initially pureed diet with honey thickened liquids, tsp by tsp, but reevaluated by speech therapy on 06/14 and made NPO as she had clinical symptoms of aspiration with all consistencies. Dietary following with recommendations as below: Jevity 1.5 boluses of 240mls @ 9AM, 1PM, & 6PM and 120mls @ 9PM. Flush 30mls water before and after each bolus feeding. Additional 100ml free water flush q6hrs. Hypertension emergency/HTN: Stable. Nifedipine 40 mg q6h Lisinopril 40 mg daily Hydralazine 100 mg every 6 hours Catapres 0.3 mg patch weekly Metoprolol 100 mg twice daily HCTZ 25 mg po daily, restarted on 08/04. Hydralazine prn for SBP >150. 08/09: BP remains controlled on current regimen. Continue to monitor and adjust medication as needed. Febrile illness: Resolved. Could be secondary to occult infection or possible neurologic from CVA, hemorrhage 05/28 Chest x-ray indicated mild L lung atelectasis versus infiltrate. 05/31 Chest x-ray appears improved from prior; no focal consolidations noted. Urinalysis was normal Blood culture 05/28 NGTD S/p Levaquin 750 mg daily for total of 7 days Hypernatremia and hyperchloremia: Resolved. Likely to related to decreased by mouth intake. -S/p IVF -Monitor BMP periodically. Pre-renal azotemia: Recurrent. BUN 20 on 07/08. Cr normal. -S/p IVF -Continue free water flushes Hyperglycemia Hemoglobin A1c 6.2 Glucerna 1.5 for feeding Xeroderma on bilateral feet: Lac-Hydrin 12% Lotion continued. Oral thrush: S/p Fluconazole treatment Onychomycosis/Hyperkeratotic keratomas at the left fifth digits bilaterally: Podiatry debrided nails at bedside on 08/01/17. Thank you for the kind consult. GI Prophylaxis: Prevacid via PEG tube DVT Prophylaxis: SCDs. Chemical prophylaxis contraindicated secondary to intracranial hemorrhage Discharge Planning 07/22: Per patient cannot go to [facility] as she is homeless and does not have a discharge disposition in place. 08/10/17: Per , continue to follow for SSI/[facility] approval which is needed to place patient. Yuly Shafer Aug 09, 2017 09:01
[2017-08-09 17:59] VITALS: BP 138/74; PULSE 78
[2017-08-09 19:15] VITALS: BP 142/101; PULSE 96; RESP 18; TEMP 97.8; O2SAT 99
[2017-08-10] MEDS: NIFEdipine 20 MG CAP PEG SCH ×3 (04:52→17:38)
[2017-08-10] MEDS: hydrALAZINE HCL 50 MG TAB PEG SCH ×3 (04:52→17:38)
[2017-08-10] MEDS: SENNOSIDES SYRUP 8.8 MG/5 ML CUP PEG SCH (08:14)
[2017-08-10] MEDS: HYDROCHLOROTHIAZIDE 25 MG TAB PO SCH (08:14)
[2017-08-10] MEDS: LANSOPRAZOLE SOLUTAB 30 MG TAB G-TUBE SCH (08:15)
[2017-08-10] MEDS: METOPROLOL TARTRATE 100 MG TAB PEG SCH ×2 (08:15→21:23)
[2017-08-10] MEDS: LACTIC ACID (AMMONIUM LACTATE) 12% LOTION 225 GM BTL TOPICAL SCH ×2 (08:15→21:23)
[2017-08-10] MEDS: LISINOPRIL 20 MG TAB PEG SCH (08:15)
[2017-08-10 08:18] VITALS: BP 131/96; PULSE 85; RESP 15; TEMP 97.3; O2SAT 98
--- NOTE | 2017-08-10 09:02 | HHI.PR ---
Subjective Remarks Follow-up for hemorrhagic CVA, hypertension. Aphasic. Objective Vitals Vital Signs Date Time Temp Pulse Resp B/P (MAP) Pulse Ox O2 Delivery O2 Flow Rate FiO2 08/10/17 08:18 97.3 85 15 131/96 (108) 98 08/09/17 19:15 97.8 96 18 142/101 (115) 99 08/09/17 17:59 78 138/74 (95) I/O 08/09/17 08/09/17 08/09/17 08/10/17 08/10/17 08/10/17 07:00 15:00 23:00 07:00 15:00 23:00 Intake Total 420 ml 540 ml 270 ml 360 ml Output Total 300 ml Balance 120 ml 540 ml 270 ml 360 ml Intake Oral 0 ml Tube Feeding 240 ml 480 ml 240 ml 240 ml Other 180 ml 60 ml 30 ml 120 ml Output Urine Total 300 ml # Voids 2 5 # Bowel Movements 0 0 Objective Remarks GENERAL: Well nourished well-developed patient in no apparent distress. CARDIOVASCULAR: Regular rate and rhythm. 2/6 murmur. RESPIRATORY: No accessory muscle use. Clear to auscultation bilaterally. GASTROINTESTINAL: Abdomen soft, non-tender, non-distended. NEUROLOGICAL: Awake and alert. Aphasic. Weak grasp Left hand. Procedures Peg Tube placed 05/08/17 (Dr. De Los Santos) Urinary Catheter: No Vascular Central Line Catheter: No A/P Assessment and Plan Intracranial hemorrhage Secondary to uncontrolled hypertension and hypertensive emergency Thalamic ICH with intraventricular extension. No surgical intervention per Dr. Wang. Neurology following, ok for discharge to rehab. Continue PT/OT/ST Dysphagia suspect secondary to intracranial bleed Post PEG placement 05/09/17. Patient initially pureed diet with honey thickened liquids, tsp by tsp, but reevaluated by speech therapy on 06/14 and made NPO as she had clinical symptoms of aspiration with all consistencies. Dietary following with recommendations as below: Jevity 1.5 boluses of 240mls @ 9AM, 1PM, & 6PM and 120mls @ 9PM. Flush 30mls water before and after each bolus feeding. Additional 100ml free water flush q6hrs. Hypertension emergency/HTN: Stable. Nifedipine 40 mg q6h Lisinopril 40 mg daily Hydralazine 100 mg every 6 hours Catapres 0.3 mg patch weekly Metoprolol 100 mg twice daily HCTZ 25 mg po daily, restarted on 08/04. Hydralazine prn for SBP >150. Continue to monitor and adjust medication as needed. Febrile illness: Resolved. Could be secondary to occult infection or possible neurologic from CVA, hemorrhage 05/28 Chest x-ray indicated mild L lung atelectasis versus infiltrate. 05/31 Chest x-ray appears improved from prior; no focal consolidations noted. Urinalysis was normal Blood culture 05/28 NGTD S/p Levaquin 750 mg daily for total of 7 days Hypernatremia and hyperchloremia: Resolved. Likely to related to decreased by mouth intake. -S/p IVF -Monitor BMP periodically. Pre-renal azotemia: Recurrent. BUN 20 on 07/08. Cr normal. -S/p IVF -Continue free water flushes Hyperglycemia Hemoglobin A1c 6.2 Glucerna 1.5 for feeding Xeroderma on bilateral feet: Lac-Hydrin 12% Lotion continued. Oral thrush: S/p Fluconazole treatment Onychomycosis/Hyperkeratotic keratomas at the left fifth digits bilaterally: Podiatry debrided nails at bedside on 08/01/17. Thank you for the kind consult. GI Prophylaxis: Prevacid via PEG tube DVT Prophylaxis: SCDs. Chemical prophylaxis contraindicated secondary to intracranial hemorrhage Discharge Planning 07/22: Per patient cannot go to [facility] as she is homeless and does not have a discharge disposition in place. 08/10/17: Per , continue to follow for SSI/[facility] approval which is needed to place patient. Yuly Shafer Aug 10, 2017 09:02
[2017-08-10 12:40] VITALS: BP 131/83; PULSE 67; RESP 18; TEMP 96.1; O2SAT 97
[2017-08-10 12:50] VITALS: BP 131/83; PULSE 67; RESP 16; TEMP 96.1; O2SAT 97
[2017-08-10 17:05] VITALS: BP 120/82; PULSE 74; RESP 16; TEMP 96.7; O2SAT 99
[2017-08-10 20:00] VITALS: BP 142/88; PULSE 94; RESP 20; TEMP 98.8; O2SAT 99
[2017-08-11] MEDS: hydrALAZINE HCL 50 MG TAB PEG SCH ×4 (00:49→18:00)
[2017-08-11] MEDS: NIFEdipine 20 MG CAP PEG SCH ×4 (00:49→18:00)
[2017-08-11] MEDS: LANSOPRAZOLE SOLUTAB 30 MG TAB G-TUBE SCH (07:46)
[2017-08-11] MEDS: LISINOPRIL 20 MG TAB PEG SCH (07:46)
[2017-08-11] MEDS: HYDROCHLOROTHIAZIDE 25 MG TAB PO SCH (07:46)
[2017-08-11] MEDS: SENNOSIDES SYRUP 8.8 MG/5 ML CUP PEG SCH (07:47)
[2017-08-11] MEDS: METOPROLOL TARTRATE 100 MG TAB PEG SCH ×2 (07:47→21:00)
[2017-08-11] MEDS: LACTIC ACID (AMMONIUM LACTATE) 12% LOTION 225 GM BTL TOPICAL SCH ×2 (07:55→21:21)
[2017-08-11 08:00] VITALS: BP 111/69; PULSE 90; RESP 18; TEMP 98.9; O2SAT 97
--- NOTE | 2017-08-11 11:21 | HHI.PR ---
Subjective Remarks Follow up for hemorrhagic CVA, HTN. Objective Vitals Vital Signs Date Time Temp Pulse Resp B/P (MAP) Pulse Ox O2 Delivery O2 Flow Rate FiO2 08/11/17 08:00 98.9 90 18 111/69 (83) 97 08/10/17 20:00 98.8 94 20 142/88 (106) 99 08/10/17 17:05 96.7 74 16 120/82 (95) 99 08/10/17 12:50 96.1 67 16 131/83 (99) 97 I/O 08/10/17 08/10/17 08/10/17 08/11/17 08/11/17 08/11/17 07:00 15:00 23:00 07:00 15:00 23:00 Intake Total 360 ml 600 ml 330 ml 300 ml Balance 360 ml 600 ml 330 ml 300 ml Tube Feeding 240 ml 480 ml 240 ml 240 ml Other 120 ml 120 ml 90 ml 60 ml # Voids 5 2 Objective Remarks GENERAL: Well nourished well-developed patient in no apparent distress. CARDIOVASCULAR: Regular rate and rhythm. RESPIRATORY: No accessory muscle use. Clear to auscultation bilaterally but decreased breath sounds as patient does not take deep breaths. GASTROINTESTINAL: Abdomen soft, non-tender, non-distended. NEUROLOGICAL: Awake and alert. Aphasic. Weak grasp Left hand. Procedures Peg Tube placed 05/08/17 (Dr. De Los Santos) Urinary Catheter: No Vascular Central Line Catheter: No A/P Assessment and Plan Intracranial hemorrhage Secondary to uncontrolled hypertension and hypertensive emergency Thalamic ICH with intraventricular extension. No surgical intervention per Dr. Wang. Neurology following, ok for discharge to rehab. Continue PT/OT/ST Dysphagia suspect secondary to intracranial bleed Post PEG placement 05/09/17. Patient initially pureed diet with honey thickened liquids, tsp by tsp, but reevaluated by speech therapy on 06/14 and made NPO as she had clinical symptoms of aspiration with all consistencies. Dietary following with recommendations as below: Jevity 1.5 boluses of 240mls @ 9AM, 1PM, & 6PM and 120mls @ 9PM. Flush 30mls water before and after each bolus feeding. Additional 100ml free water flush q6hrs. Hypertension emergency/HTN: Stable. Nifedipine 40 mg q6h Lisinopril 40 mg daily Hydralazine 100 mg every 6 hours Catapres 0.3 mg patch weekly Metoprolol 100 mg twice daily HCTZ 25 mg po daily, restarted on 08/04. Hydralazine prn for SBP >150. Continue to monitor and adjust medication as needed. Febrile illness: Resolved. Could be secondary to occult infection or possible neurologic from CVA, hemorrhage 05/28 Chest x-ray indicated mild L lung atelectasis versus infiltrate. 05/31 Chest x-ray appears improved from prior; no focal consolidations noted. Urinalysis was normal Blood culture 05/28 NGTD S/p Levaquin 750 mg daily for total of 7 days Hypernatremia and hyperchloremia: Resolved. Likely to related to decreased by mouth intake. -S/p IVF -Monitor BMP periodically. Pre-renal azotemia: Recurrent. BUN 20 on 07/08. Cr normal. -S/p IVF -Continue free water flushes Hyperglycemia Hemoglobin A1c 6.2 Glucerna 1.5 for feeding Xeroderma on bilateral feet: Lac-Hydrin 12% Lotion continued. Oral thrush: S/p Fluconazole treatment Onychomycosis/Hyperkeratotic keratomas at the left fifth digits bilaterally: Podiatry debrided nails at bedside on 08/01/17. Thank you for the kind consult. GI Prophylaxis: Prevacid via PEG tube DVT Prophylaxis: SCDs. Chemical prophylaxis contraindicated secondary to intracranial hemorrhage Discharge Planning 07/22: Per CM patient cannot go to [facility] as she is homeless and does not have a discharge disposition in place. 08/10/17: Per , continue to follow for SSI/[facility] approval which is needed to place patient. Yuly Shafer Aug 11, 2017 11:21
[2017-08-11 20:00] VITALS: BP 97/68; PULSE 81; RESP 20; TEMP 96.6; O2SAT 99
[2017-08-12] MEDS: hydrALAZINE HCL 50 MG TAB PEG SCH ×5 (00:44→23:12)
[2017-08-12] MEDS: NIFEdipine 20 MG CAP PEG SCH ×5 (00:44→23:12)
[2017-08-12] MEDS: HYDROCHLOROTHIAZIDE 25 MG TAB PO SCH (09:00)
[2017-08-12] MEDS: LISINOPRIL 20 MG TAB PEG SCH (09:00)
[2017-08-12] MEDS: METOPROLOL TARTRATE 100 MG TAB PEG SCH ×2 (09:00→21:13)
[2017-08-12 09:03] VITALS: BP 102/56; PULSE 76; RESP 18; TEMP 98; O2SAT 100
[2017-08-12] MEDS: LANSOPRAZOLE SOLUTAB 30 MG TAB G-TUBE SCH (10:09)
[2017-08-12] MEDS: SENNOSIDES SYRUP 8.8 MG/5 ML CUP PEG SCH (10:09)
[2017-08-12] MEDS: LACTIC ACID (AMMONIUM LACTATE) 12% LOTION 225 GM BTL TOPICAL SCH ×2 (10:10→21:13)
--- NOTE | 2017-08-12 10:52 | HHI.PR ---
Subjective Remarks Follow up for hemorrhagic CVA, HTN. Aphasic. Objective Vitals Vital Signs Date Time Temp Pulse Resp B/P (MAP) Pulse Ox O2 Delivery O2 Flow Rate FiO2 08/12/17 09:03 98.0 76 18 102/56 (71) 100 08/11/17 20:00 96.6 81 20 97/68 (78) 99 I/O 08/11/17 08/11/17 08/11/17 08/12/17 08/12/17 08/12/17 06:59 14:59 22:59 06:59 14:59 22:59 Intake Total 300 ml 0 ml 0 ml 0 ml Balance 300 ml 0 ml 0 ml 0 ml Intake Oral 0 ml 0 ml 0 ml Tube Feeding 240 ml Other 60 ml # Voids 2 2 1 1 # Bowel Movements 0 1 Objective Remarks GENERAL: Well nourished well-developed patient in no apparent distress. CARDIOVASCULAR: Regular rate and rhythm. 2/6 murmur. RESPIRATORY: No accessory muscle use. Clear to auscultation bilaterally. GASTROINTESTINAL: Abdomen soft, non-tender, non-distended. NEUROLOGICAL: Awake and alert. Aphasic. Procedures Peg Tube placed 05/08/17 (Dr. De Los Santos) Urinary Catheter: No Vascular Central Line Catheter: No A/P Assessment and Plan Intracranial hemorrhage Secondary to uncontrolled hypertension and hypertensive emergency Thalamic ICH with intraventricular extension. No surgical intervention per Dr. Wang. Neurology following, ok for discharge to rehab. Continue PT/OT/ST Dysphagia suspect secondary to intracranial bleed Post PEG placement 05/09/17. Patient initially pureed diet with honey thickened liquids, tsp by tsp, but reevaluated by speech therapy on 06/14 and made NPO as she had clinical symptoms of aspiration with all consistencies. Dietary following with recommendations as below: Jevity 1.5 boluses of 240mls @ 9AM, 1PM, & 6PM and 120mls @ 9PM. Flush 30mls water before and after each bolus feeding. Additional 100ml free water flush q6hrs. Hypertension emergency/HTN: Stable. Nifedipine 40 mg q6h Lisinopril 40 mg daily Hydralazine 100 mg every 6 hours Catapres 0.3 mg patch weekly Metoprolol 100 mg twice daily HCTZ 25 mg po daily, restarted on 08/04. Hydralazine prn for SBP >150. Continue to monitor and adjust medication as needed. Febrile illness: Resolved. Could be secondary to occult infection or possible neurologic from CVA, hemorrhage 05/28 Chest x-ray indicated mild L lung atelectasis versus infiltrate. 05/31 Chest x-ray appears improved from prior; no focal consolidations noted. Urinalysis was normal Blood culture 05/28 NGTD S/p Levaquin 750 mg daily for total of 7 days Hypernatremia and hyperchloremia: Resolved. Likely to related to decreased by mouth intake. -S/p IVF -Monitor BMP periodically. Pre-renal azotemia: Recurrent. BUN 20 on 07/08. Cr normal. -S/p IVF -Continue free water flushes Hyperglycemia Hemoglobin A1c 6.2 Glucerna 1.5 for feeding Xeroderma on bilateral feet: Lac-Hydrin 12% Lotion continued. Oral thrush: S/p Fluconazole treatment Onychomycosis/Hyperkeratotic keratomas at the left fifth digits bilaterally: Podiatry debrided nails at bedside on 08/01/17. Thank you for the kind consult. GI Prophylaxis: Prevacid via PEG tube DVT Prophylaxis: SCDs. Chemical prophylaxis contraindicated secondary to intracranial hemorrhage Discharge Planning 07/22: Per patient cannot go to [place] [facility] as she is homeless and does not have a discharge disposition in place. 08/09/17: Per , continue to follow for SSI/[facility] approval which is needed to place patient. Yuly Shafer Aug 12, 2017 10:52
[2017-08-12 12:23] VITALS: BP 110/79
[2017-08-12 13:35] VITALS: BP 110/79; PULSE 72; RESP 18; TEMP 97.6; O2SAT 100
[2017-08-12 17:14] VITALS: BP 106/78
[2017-08-12 20:28] VITALS: BP 147/80; PULSE 90; RESP 22; TEMP 97.7; O2SAT 96
[2017-08-13] MEDS: NIFEdipine 20 MG CAP PEG SCH ×3 (06:14→18:21)
[2017-08-13] MEDS: hydrALAZINE HCL 50 MG TAB PEG SCH ×3 (06:14→18:21)
[2017-08-13 08:00] VITALS: BP 111/79; PULSE 76; RESP 16; TEMP 97.7; O2SAT 98
[2017-08-13] MEDS: SENNOSIDES SYRUP 8.8 MG/5 ML CUP PEG SCH (08:07)
[2017-08-13] MEDS: LANSOPRAZOLE SOLUTAB 30 MG TAB G-TUBE SCH (08:07)
[2017-08-13] MEDS: LACTIC ACID (AMMONIUM LACTATE) 12% LOTION 225 GM BTL TOPICAL SCH ×2 (08:07→21:33)
[2017-08-13] MEDS: HYDROCHLOROTHIAZIDE 25 MG TAB PO SCH (08:07)
[2017-08-13] MEDS: METOPROLOL TARTRATE 100 MG TAB PEG SCH ×2 (08:07→21:00)
[2017-08-13] MEDS: LISINOPRIL 20 MG TAB PEG SCH (08:08)
[2017-08-13 12:00] VITALS: BP 107/75; PULSE 69; RESP 16; TEMP 97.3; O2SAT 98
--- NOTE | 2017-08-13 14:38 | HHI.PR ---
Subjective Remarks Patient evaluated this morning. Follow up for hemorrhagic CVA, HTN. Nods "yes" when I ask her if she is doing ok. Objective Vitals Vital Signs Date Time Temp Pulse Resp B/P (MAP) Pulse Ox O2 Delivery O2 Flow Rate FiO2 08/13/17 12:00 97.3 69 16 107/75 (86) 98 08/13/17 08:00 97.7 76 16 111/79 (90) 98 08/12/17 20:28 97.7 90 22 147/80 (102) 96 08/12/17 17:14 106/78 (87) I/O 08/12/17 08/12/17 08/12/17 08/13/17 08/13/17 08/13/17 07:00 15:00 23:00 07:00 15:00 23:00 Intake Total 0 ml 1200 ml Balance 0 ml 1200 ml Intake Oral 0 ml 0 ml Tube Feeding 720 ml Other 480 ml # Voids 1 1 1 Objective Remarks GENERAL: Well nourished well-developed patient in no apparent distress. ENT: White tongue. CARDIOVASCULAR: Regular rate and rhythm. 2/6 murmur loudest at LLSB. RESPIRATORY: No accessory muscle use. Clear to auscultation bilaterally. GASTROINTESTINAL: Abdomen soft, non-tender, non-distended. NEUROLOGICAL: Awake and alert. Aphasic, but follows commands. Weak grasp Left hand. Procedures Peg Tube placed 05/08/17 (Dr. De Los Santos) Urinary Catheter: No Vascular Central Line Catheter: No A/P Assessment and Plan Thrush: Nystatin 500,000 units qid ordered. RN to swab on patient's tongue and mouth. Intracranial hemorrhage Secondary to uncontrolled hypertension and hypertensive emergency Thalamic ICH with intraventricular extension. No surgical intervention per Dr. Wang. Neurology following, ok for discharge to rehab. Continue PT/OT/ST Dysphagia suspect secondary to intracranial bleed Post PEG placement 05/09/17. Patient initially pureed diet with honey thickened liquids, tsp by tsp, but reevaluated by speech therapy on 06/14 and made NPO as she had clinical symptoms of aspiration with all consistencies. Dietary following with recommendations as below: Jevity 1.5 boluses of 240mls @ 9AM, 1PM, & 6PM and 120mls @ 9PM. Flush 30mls water before and after each bolus feeding. Additional 100ml free water flush q6hrs. Hypertension emergency/HTN: Stable. Nifedipine 40 mg q6h Lisinopril 40 mg daily Hydralazine 100 mg every 6 hours Catapres 0.3 mg patch weekly Metoprolol 100 mg twice daily HCTZ 25 mg po daily, restarted on 08/04. Hydralazine prn for SBP >150. Continue to monitor and adjust medication as needed. Febrile illness: Resolved. Could be secondary to occult infection or possible neurologic from CVA, hemorrhage 05/28 Chest x-ray indicated mild L lung atelectasis versus infiltrate. 05/31 Chest x-ray appears improved from prior; no focal consolidations noted. Urinalysis was normal Blood culture 05/28 NGTD S/p Levaquin 750 mg daily for total of 7 days Hypernatremia and hyperchloremia: Resolved. Likely to related to decreased by mouth intake. -S/p IVF -Monitor BMP periodically. Pre-renal azotemia: Recurrent. BUN 20 on 07/08. Cr normal. -S/p IVF -Continue free water flushes Hyperglycemia Hemoglobin A1c 6.2 Glucerna 1.5 for feeding Xeroderma on bilateral feet: Lac-Hydrin 12% Lotion continued. Oral thrush: S/p Fluconazole treatment Onychomycosis/Hyperkeratotic keratomas at the left fifth digits bilaterally: Podiatry debrided nails at bedside on 08/01/17. Thank you for the kind consult. GI Prophylaxis: Prevacid via PEG tube DVT Prophylaxis: SCDs. Chemical prophylaxis contraindicated secondary to intracranial hemorrhage Discharge Planning 07/22: Per patient cannot go to [facility] as she is homeless and does not have a discharge disposition in place. 08/09/17: Per , continue to follow for SSI/BUSHRA approval which is needed to place patient. Yuly Shafer Aug 13, 2017 14:37
[2017-08-13 16:00] VITALS: BP 116/87; PULSE 68; RESP 16; TEMP 98.6; O2SAT 100
[2017-08-13 18:20] VITALS: BP 121/85; PULSE 64; RESP 18
[2017-08-13] MEDS: NYSTATIN SUSP 500,000 U/5 ML CUP OTHER SCH ×2 (18:20→21:34)
[2017-08-13 20:23] VITALS: BP 99/71; PULSE 88; RESP 14; TEMP 98; O2SAT 98
[2017-08-14] VITALS: BP 112/70
[2017-08-14] MEDS: NIFEdipine 20 MG CAP PEG SCH ×4 (00:17→17:50)
[2017-08-14] MEDS: hydrALAZINE HCL 50 MG TAB PEG SCH ×4 (00:17→17:50)
[2017-08-14 05:10] VITALS: BP 122/83
[2017-08-14 09:23] VITALS: BP 119/92; PULSE 103; RESP 17; TEMP 98.4; O2SAT 97
[2017-08-14] MEDS: SENNOSIDES SYRUP 8.8 MG/5 ML CUP PEG SCH (09:34)
[2017-08-14] MEDS: LACTIC ACID (AMMONIUM LACTATE) 12% LOTION 225 GM BTL TOPICAL SCH ×2 (09:35→21:14)
[2017-08-14] MEDS: LISINOPRIL 20 MG TAB PEG SCH (09:35)
[2017-08-14] MEDS: LANSOPRAZOLE SOLUTAB 30 MG TAB G-TUBE SCH (09:35)
[2017-08-14] MEDS: HYDROCHLOROTHIAZIDE 25 MG TAB PO SCH (09:35)
[2017-08-14] MEDS: METOPROLOL TARTRATE 100 MG TAB PEG SCH ×2 (09:35→21:14)
[2017-08-14] MEDS: NYSTATIN SUSP 500,000 U/5 ML CUP OTHER SCH ×4 (09:48→21:14)
--- NOTE | 2017-08-14 10:50 | HHI.PR ---
Subjective Remarks Follow up for hemorrhagic CVA, HTN. Nods her head "yes" when I ask her if she is ok. Objective Vitals Vital Signs Date Time Temp Pulse Resp B/P (MAP) Pulse Ox O2 Delivery O2 Flow Rate FiO2 08/14/17 09:23 98.4 103 17 119/92 (101) 97 08/14/17 05:10 122/83 (96) 08/14/17 00:00 112/70 (84) 08/13/17 20:23 98.0 88 14 99/71 (80) 98 08/13/17 18:20 64 18 121/85 (97) 08/13/17 16:00 98.6 68 16 116/87 (97) 100 08/13/17 12:00 97.3 69 16 107/75 (86) 98 I/O 08/13/17 08/13/17 08/13/17 08/14/17 08/14/17 08/14/17 07:00 15:00 23:00 07:00 15:00 23:00 Intake Total 940 ml Balance 940 ml Tube Feeding 720 ml Other 220 ml # Voids 1 3 # Bowel Movements 1 Objective Remarks GENERAL: Well nourished well-developed patient in no apparent distress. CARDIOVASCULAR: Regular rate and rhythm. 2/6 murmur loudest at LLSB. RESPIRATORY: No accessory muscle use. Clear to auscultation bilaterally. GASTROINTESTINAL: Abdomen soft, non-tender, non-distended. NEUROLOGICAL: Awake and alert. Aphasic. Weak grasp Left hand. Procedures Peg Tube placed 05/08/17 (Dr. De Los Santos) Urinary Catheter: No Vascular Central Line Catheter: No A/P Assessment and Plan Thrush: Continue Nystatin 500,000 units qid. RN to swab on patient's tongue and mouth. Intracranial hemorrhage Secondary to uncontrolled hypertension and hypertensive emergency Thalamic ICH with intraventricular extension. No surgical intervention per Dr. Wang. Neurology following, ok for discharge to rehab. Continue PT/OT/ST Dysphagia suspect secondary to intracranial bleed Post PEG placement 05/09/17. Patient initially pureed diet with honey thickened liquids, tsp by tsp, but reevaluated by speech therapy on 06/14 and made NPO as she had clinical symptoms of aspiration with all consistencies. Dietary following with recommendations as below: Jevity 1.5 boluses of 240mls @ 9AM, 1PM, & 6PM and 120mls @ 9PM. Flush 30mls water before and after each bolus feeding. Additional 100ml free water flush q6hrs. Hypertension emergency/HTN: Stable. Nifedipine 40 mg q6h Lisinopril 40 mg daily Hydralazine 100 mg every 6 hours Catapres 0.3 mg patch weekly Metoprolol 100 mg twice daily HCTZ 25 mg po daily, restarted on 08/04. Hydralazine prn for SBP >150. Continue to monitor and adjust medication as needed. Febrile illness: Resolved. Could be secondary to occult infection or possible neurologic from CVA, hemorrhage 05/28 Chest x-ray indicated mild L lung atelectasis versus infiltrate. 05/31 Chest x-ray appears improved from prior; no focal consolidations noted. Urinalysis was normal Blood culture 05/28 NGTD S/p Levaquin 750 mg daily for total of 7 days Hypernatremia and hyperchloremia: Resolved. Likely to related to decreased by mouth intake. -S/p IVF -Monitor BMP periodically. Pre-renal azotemia: Recurrent. BUN 20 on 07/08. Cr normal. -S/p IVF -Continue free water flushes Hyperglycemia Hemoglobin A1c 6.2 Glucerna 1.5 for feeding Xeroderma on bilateral feet: Lac-Hydrin 12% Lotion continued. Oral thrush: S/p Fluconazole treatment Onychomycosis/Hyperkeratotic keratomas at the left fifth digits bilaterally: Podiatry debrided nails at bedside on 08/01/17. Thank you for the kind consult. GI Prophylaxis: Prevacid via PEG tube DVT Prophylaxis: SCDs. Chemical prophylaxis contraindicated secondary to intracranial hemorrhage Discharge Planning 07/22: Per patient cannot go to [facility] as she is homeless and does not have a discharge disposition in place. 08/09/17: Per , continue to follow for SSI/BUSHRA approval which is needed to place patient. Yuly Shafer Aug 14, 2017 10:50
[2017-08-14 12:25] VITALS: BP 111/79; PULSE 67; RESP 16
[2017-08-14] MEDS: ACETAMINOPHEN 325 MG TAB PEG PRN (15:13)
[2017-08-14 17:48] VITALS: BP 133/82; PULSE 67; RESP 16
[2017-08-14 19:15] VITALS: BP 113/77; PULSE 80; RESP 16; TEMP 97.4; O2SAT 94
[2017-08-15 00:25] VITALS: BP 137/90; PULSE 67
[2017-08-15] MEDS: NIFEdipine 20 MG CAP PEG SCH ×4 (00:33→18:11)
[2017-08-15] MEDS: hydrALAZINE HCL 50 MG TAB PEG SCH ×4 (00:33→18:58)
[2017-08-15 08:00] VITALS: BP 118/83; PULSE 83; RESP 18; TEMP 97.9; O2SAT 99
[2017-08-15] MEDS: SENNOSIDES SYRUP 8.8 MG/5 ML CUP PEG SCH (08:44)
[2017-08-15] MEDS: NYSTATIN SUSP 500,000 U/5 ML CUP OTHER SCH ×4 (08:44→20:59)
--- NOTE | 2017-08-15 08:44 | HHI.PR ---
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 She denies any new complaints. No change in clinical status. Awaiting case management for discharge planning. Objective Vitals Vital Signs Date Time Temp Pulse Resp B/P (MAP) Pulse Ox O2 Delivery O2 Flow Rate FiO2 08/15/17 08:00 97.9 83 18 118/83 (95) 99 08/15/17 00:25 67 137/90 (106) 08/14/17 19:15 97.4 80 16 113/77 (89) 94 08/14/17 17:48 67 16 133/82 (99) 08/14/17 16:13 18 08/14/17 12:25 67 16 111/79 (90) 08/14/17 09:23 98.4 103 17 119/92 (101) 97 I/O 08/14/17 08/14/17 08/14/17 08/15/17 08/15/17 08/15/17 07:00 15:00 23:00 07:00 15:00 23:00 Intake Total 640 ml 360 ml Balance 640 ml 360 ml Tube Feeding 240 ml Tube Irrigant 400 ml 360 ml # Voids 3 Objective Remarks GENERAL: Well-developed, well-nourished, in no acute distress. Awake, responds minimally with head nods. Trying to speak HEENT: Head is normocephalic without any lesions or masses noted. Facial features are symmetric. Eyes: Conjunctivae were clear. CARDIAC: Regular rhythm, regular rate. S1/S2 are heard. 2/6 ejection, no gallops or rubs. LUNGS: Clear to auscultation bilaterally. No wheeze, rhonchi or rales. No use of accessory muscles on inspiration or expiration. ABDOMEN: Soft, nontender. Nondistended. Bowel sounds heard in all 4 quadrants. No organomegaly or masses. Negative rebound, negative guarding, PEG tube noted without any signs of infection EXTREMITIES: No edema, pulses are equal bilaterally. No cyanosis or clubbing NEUROLOGY: Patient is moving left upper extremity and able to move left foot. Patient unable to move right upper and lower extremity. Procedures Peg Tube placed 05/08/17 (Dr. De Los Santos) Urinary Catheter: No Vascular Central Line Catheter: No A/P Assessment and Plan Intracranial hemorrhage, 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 Neurosurgery evaluated patient states no surgical intervention Continue PT/OT/ST Consulted as indicated patient is stable to be discharged to rehabilitation facility Patient is improving per therapy, they indicate patient would benefit from a acute care facility that could supply her more therapy than we can offer here Case management consulted for inpatient rehabilitation, who indicated patient is homeless, no discharge disposition Dysphagia suspect secondary to intracranial bleed, Post PEG placement 05/09/17. Speech therapy indicates patient is nothing by mouth, to continue to follow and advance diet per exam Dietary consulted and made recommendations for bolus feeding Hypertension emergency, blood pressure stable Nifedipine 40 mg every 6 hours Lisinopril 40 mg daily Apresoline 100 mg every 6 hours Catapres TTS 3 patch Metoprolol 100 mg twice daily HCTZ 25 mg daily Apresoline, clonidine, Vasotec as needed Hyperglycemia Hemoglobin A1c 6.2 Glucerna 1.5 bolus tube feeding Xeroderma on bilateral feet: Lac-Hydrin 12% Lotion continued. GI Prophylaxis: Prevacid via PEG tube DVT Prophylaxis: Sequential compression devices, chemical prophylaxis contraindicated secondary to intracranial hemorrhage awaiting shoe caser discharge planning, Records reviewed, no change in treatment plan, Discharge Planning Discharge planning per case management Kayden Kelley Aug 15, 2017 08:44
[2017-08-15] MEDS: METOPROLOL TARTRATE 100 MG TAB PEG SCH ×2 (08:45→20:59)
[2017-08-15] MEDS: HYDROCHLOROTHIAZIDE 25 MG TAB PO SCH (08:45)
[2017-08-15] MEDS: LISINOPRIL 20 MG TAB PEG SCH (08:45)
[2017-08-15] MEDS: LANSOPRAZOLE SOLUTAB 30 MG TAB G-TUBE SCH (08:45)
[2017-08-15] MEDS: LACTIC ACID (AMMONIUM LACTATE) 12% LOTION 225 GM BTL TOPICAL SCH ×2 (08:46→20:59)
[2017-08-15 12:54] VITALS: BP 143/88; PULSE 65
[2017-08-15] MEDS: REMOVE OLD CATAPRES (CLONIDINE) PATCH T-DERMAL SCH (15:00)
[2017-08-15] MEDS: cloNIDine HCL 0.3 MG/24 HR PATCH T-DERMAL SCH (16:15)
[2017-08-15 20:00] VITALS: BP 141/88; PULSE 94; RESP 18; TEMP 96.8; O2SAT 99
[2017-08-16] MEDS: NIFEdipine 20 MG CAP PEG SCH ×5 (00:28→23:54)
[2017-08-16] MEDS: hydrALAZINE HCL 50 MG TAB PEG SCH ×5 (00:29→23:54)
[2017-08-16 04:00] VITALS: BP 143/100
[2017-08-16 08:00] VITALS: BP 130/88; PULSE 100; RESP 16; TEMP 98.1; O2SAT 99
--- NOTE | 2017-08-16 08:00 | HHI.PR ---
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 Patient lying in bed. States that she did not sleep well last night. Otherwise denies any new complaints. Objective Vitals Vital Signs Date Time Temp Pulse Resp B/P (MAP) Pulse Ox O2 Delivery O2 Flow Rate FiO2 08/16/17 04:00 143/100 (114) 08/15/17 20:00 96.8 94 18 141/88 (105) 99 08/15/17 12:54 65 143/88 (106) 08/15/17 08:00 97.9 83 18 118/83 (95) 99 I/O 08/15/17 08/15/17 08/15/17 08/16/17 08/16/17 08/16/17 07:00 15:00 23:00 07:00 15:00 23:00 Intake Total 360 ml 300 ml 1140 ml 180 ml Balance 360 ml 300 ml 1140 ml 180 ml Intake Oral 0 ml Tube Feeding 240 ml 720 ml Tube Irrigant 360 ml 300 ml 180 ml Other 60 ml 120 ml # Voids 3 2 Objective Remarks GENERAL: Well-developed, well-nourished, in no acute distress. Awake, responds minimally with head nods. Trying to speak HEENT: Head is normocephalic without any lesions or masses noted. Facial features are symmetric. Eyes: Conjunctivae were clear. CARDIAC: Regular rhythm, regular rate. S1/S2 are heard. 2/6 ejection, no gallops or rubs. LUNGS: Clear to auscultation bilaterally. No wheeze, rhonchi or rales. No use of accessory muscles on inspiration or expiration. ABDOMEN: Soft, nontender. Nondistended. Bowel sounds heard in all 4 quadrants. No organomegaly or masses. Negative rebound, negative guarding, PEG tube noted without any signs of infection EXTREMITIES: No edema, pulses are equal bilaterally. No cyanosis or clubbing NEUROLOGY: Patient is moving left upper extremity and able to move left foot. Patient unable to move right upper and lower extremity. Procedures Peg Tube placed 05/08/17 (Dr. De Los Santos) Urinary Catheter: No Vascular Central Line Catheter: No A/P Assessment and Plan Intracranial hemorrhage, 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 Neurosurgery evaluated patient states no surgical intervention Continue PT/OT/ST Consulted as indicated patient is stable to be discharged to rehabilitation facility Patient is improving per therapy, they indicate patient would benefit from a acute care facility that could supply her more therapy than we can offer here Case management consulted for inpatient rehabilitation, who indicated patient is homeless, no discharge disposition Dysphagia suspect secondary to intracranial bleed, Post PEG placement 05/09/17. Speech therapy indicates patient is nothing by mouth, to continue to follow and advance diet per exam Dietary consulted and made recommendations for bolus feeding Hypertension emergency, blood pressure stable Nifedipine 40 mg every 6 hours Lisinopril 40 mg daily Apresoline 100 mg every 6 hours Catapres TTS 3 patch Metoprolol 100 mg twice daily HCTZ 25 mg daily Apresoline, clonidine, Vasotec as needed Hyperglycemia Hemoglobin A1c 6.2 Glucerna 1.5 bolus tube feeding Xeroderma on bilateral feet: Lac-Hydrin 12% Lotion continued. GI Prophylaxis: Prevacid via PEG tube DVT Prophylaxis: Sequential compression devices, chemical prophylaxis contraindicated secondary to intracranial hemorrhage Records reviewed, no change in treatment plan, awaiting correctional casework specialist discharge planning, Discharge Planning Discharge planning per case management Kayden Kelley Aug 16, 2017 08:00
[2017-08-16] MEDS: LISINOPRIL 20 MG TAB PEG SCH (08:04)
[2017-08-16] MEDS: HYDROCHLOROTHIAZIDE 25 MG TAB PO SCH (08:04)
[2017-08-16] MEDS: LANSOPRAZOLE SOLUTAB 30 MG TAB G-TUBE SCH (08:04)
[2017-08-16] MEDS: SENNOSIDES SYRUP 8.8 MG/5 ML CUP PEG SCH (08:05)
[2017-08-16] MEDS: METOPROLOL TARTRATE 100 MG TAB PEG SCH ×2 (08:05→23:54)
[2017-08-16] MEDS: LACTIC ACID (AMMONIUM LACTATE) 12% LOTION 225 GM BTL TOPICAL SCH ×2 (08:05→23:55)
[2017-08-16] MEDS: NYSTATIN SUSP 500,000 U/5 ML CUP OTHER SCH ×4 (08:05→23:54)
[2017-08-16 12:00] VITALS: BP 142/89; PULSE 76; RESP 16; O2SAT 100
[2017-08-16 16:00] VITALS: BP 138/79; PULSE 72
[2017-08-16 17:07] VITALS: BP 138/79
[2017-08-16 20:00] VITALS: BP 35/91; PULSE 87; RESP 20; TEMP 98.2; O2SAT 100
[2017-08-17] MEDS: hydrALAZINE HCL 50 MG TAB PEG SCH ×4 (05:22→22:43)
[2017-08-17] MEDS: NIFEdipine 20 MG CAP PEG SCH ×4 (05:23→23:42)
--- NOTE | 2017-08-17 07:52 | HHI.PR ---
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 Patient lying in bed comfortable. Denies any new complaints. Awaiting case management for discharge planning Objective Vitals Vital Signs Date Time Temp Pulse Resp B/P (MAP) Pulse Ox O2 Delivery O2 Flow Rate FiO2 08/16/17 20:00 98.2 87 20 35/91 (73) 100 08/16/17 17:07 138/79 (98) 08/16/17 16:00 72 138/79 (98) 08/16/17 12:00 76 16 142/89 (106) 100 08/16/17 08:00 98.1 100 16 130/88 (102) 99 I/O 08/16/17 08/16/17 08/16/17 08/17/17 08/17/17 08/17/17 07:00 15:00 23:00 07:00 15:00 23:00 Intake Total 180 ml 1300 ml 50 ml Balance 180 ml 1300 ml 50 ml Intake Oral 0 ml Tube Feeding 840 ml Tube Irrigant 180 ml Other 460 ml 50 ml # Voids 2 2 Objective Remarks GENERAL: Well-developed, well-nourished, in no acute distress. Awake, responds minimally with head nods. Trying to speak HEENT: Head is normocephalic without any lesions or masses noted. Facial features are symmetric. Eyes: Conjunctivae were clear. CARDIAC: Regular rhythm, regular rate. S1/S2 are heard. 2/6 ejection, no gallops or rubs. LUNGS: Clear to auscultation bilaterally. No wheeze, rhonchi or rales. No use of accessory muscles on inspiration or expiration. ABDOMEN: Soft, nontender. Nondistended. Bowel sounds heard in all 4 quadrants. No organomegaly or masses. Negative rebound, negative guarding, PEG tube noted without any signs of infection EXTREMITIES: No edema, pulses are equal bilaterally. No cyanosis or clubbing NEUROLOGY: Patient is moving left upper extremity and able to move left foot. Patient unable to move right upper and lower extremity. Procedures Peg Tube placed 05/08/17 (Dr. De Los Santos) Urinary Catheter: No Vascular Central Line Catheter: No A/P Assessment and Plan Intracranial hemorrhage, 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 Neurosurgery evaluated patient states no surgical intervention Continue PT/OT/ST Consulted as indicated patient is stable to be discharged to rehabilitation facility Patient is improving per therapy, they indicate patient would benefit from a acute care facility that could supply her more therapy than we can offer here Case management consulted for inpatient rehabilitation, who indicated patient is homeless, no discharge disposition Dysphagia suspect secondary to intracranial bleed, Post PEG placement 05/09/17. Speech therapy indicates patient is nothing by mouth, to continue to follow and advance diet per exam Dietary consulted and made recommendations for bolus feeding Hypertension emergency, blood pressure stable Nifedipine 40 mg every 6 hours Lisinopril 40 mg daily Apresoline 100 mg every 6 hours Catapres TTS 3 patch Metoprolol 100 mg twice daily HCTZ 25 mg daily Apresoline, clonidine, Vasotec as needed Hyperglycemia Hemoglobin A1c 6.2 Glucerna 1.5 bolus tube feeding Xeroderma on bilateral feet: Lac-Hydrin 12% Lotion continued. GI Prophylaxis: Prevacid via PEG tube DVT Prophylaxis: Sequential compression devices, chemical prophylaxis contraindicated secondary to intracranial hemorrhage Records reviewed, awaiting rn field case manager discharge planning, no change in treatment plan, Discharge Planning Discharge planning per case management Kayden Kelley Aug 17, 2017 07:52
[2017-08-17 08:33] VITALS: BP 102/71; PULSE 73; RESP 16; TEMP 98.9; O2SAT 99
[2017-08-17] MEDS: LISINOPRIL 20 MG TAB PEG SCH (08:51)
[2017-08-17] MEDS: HYDROCHLOROTHIAZIDE 25 MG TAB PO SCH (08:51)
[2017-08-17] MEDS: METOPROLOL TARTRATE 100 MG TAB PEG SCH ×2 (08:52→22:43)
[2017-08-17] MEDS: LACTIC ACID (AMMONIUM LACTATE) 12% LOTION 225 GM BTL TOPICAL SCH ×2 (09:05→21:00)
[2017-08-17] MEDS: POLYETHYLENE GLYCOL 17 GM PKG PO PRN (09:05)
[2017-08-17] MEDS: NYSTATIN SUSP 500,000 U/5 ML CUP OTHER SCH ×4 (09:07→22:44)
[2017-08-17] MEDS: SENNOSIDES SYRUP 8.8 MG/5 ML CUP PEG SCH (09:07)
[2017-08-17] MEDS: LANSOPRAZOLE SOLUTAB 30 MG TAB G-TUBE SCH (09:07)
[2017-08-17 11:28] VITALS: BP 104/68; PULSE 68; RESP 16; TEMP 98; O2SAT 98
[2017-08-17 17:20] VITALS: BP 111/82
[2017-08-17 20:00] VITALS: BP 103/71; PULSE 99; RESP 20; TEMP 98.4; O2SAT 100
[2017-08-17 23:57] VITALS: BP 94/72; PULSE 78; RESP 20; TEMP 99
[2017-08-18 05:39] VITALS: BP 108/84; PULSE 74; RESP 18; TEMP 98.5; O2SAT 98
[2017-08-18] MEDS: hydrALAZINE HCL 50 MG TAB PEG SCH ×3 (05:41→21:59)
[2017-08-18] MEDS: NIFEdipine 20 MG CAP PEG SCH ×3 (05:42→17:38)
--- NOTE | 2017-08-18 07:51 | HHI.PR ---
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 Patient resting in bed comfortably. No indication of any new complaints. No change in clinical status. Awaiting case management for discharge planning Objective Vitals Vital Signs Date Time Temp Pulse Resp B/P (MAP) Pulse Ox O2 Delivery O2 Flow Rate FiO2 08/18/17 05:39 98.5 74 18 108/84 (92) 98 08/17/17 23:57 99.0 78 20 94/72 (79) 08/17/17 20:00 98.4 99 20 103/71 (82) 100 08/17/17 17:20 111/82 (92) 08/17/17 11:28 98.0 68 16 104/68 (80) 98 08/17/17 08:33 98.9 73 16 102/71 (81) 99 I/O 08/17/17 08/17/17 08/17/17 08/18/17 08/18/17 08/18/17 06:59 14:59 22:59 06:59 14:59 22:59 Intake Total 250 ml 1070 ml 270 ml Balance 250 ml 1070 ml 270 ml Intake Oral 0 ml Tube Feeding 120 ml 720 ml 120 ml Other 130 ml 350 ml 150 ml # Voids 2 0 # Bowel Movements 0 0 Objective Remarks GENERAL: Well-developed, well-nourished, in no acute distress. Awake, responds minimally with head nods. Trying to speak HEENT: Head is normocephalic without any lesions or masses noted. Facial features are symmetric. Eyes: Conjunctivae were clear. CARDIAC: Regular rhythm, regular rate. S1/S2 are heard. 2/6 ejection, no gallops or rubs. LUNGS: Clear to auscultation bilaterally. No wheeze, rhonchi or rales. No use of accessory muscles on inspiration or expiration. ABDOMEN: Soft, nontender. Nondistended. Bowel sounds heard in all 4 quadrants. No organomegaly or masses. Negative rebound, negative guarding, PEG tube noted without any signs of infection EXTREMITIES: No edema, pulses are equal bilaterally. No cyanosis or clubbing NEUROLOGY: Patient is moving left upper extremity and able to move left foot. Patient unable to move right upper and lower extremity. Procedures Peg Tube placed 05/08/17 (Dr. De Los Santos) Urinary Catheter: No Vascular Central Line Catheter: No A/P Assessment and Plan Intracranial hemorrhage, 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 Neurosurgery evaluated patient states no surgical intervention Continue PT/OT/ST Consulted as indicated patient is stable to be discharged to rehabilitation facility Patient is improving per therapy, they indicate patient would benefit from a acute care facility that could supply her more therapy than we can offer here Case management consulted for inpatient rehabilitation, who indicated patient is homeless, no discharge disposition Dysphagia suspect secondary to intracranial bleed, Post PEG placement 05/09/17. Speech therapy indicates patient is nothing by mouth, to continue to follow and advance diet per exam Dietary consulted and made recommendations for bolus feeding Hypertension emergency, patient with labile blood pressure with going low recently. Nifedipine 40 mg every 6 hours Lisinopril 40 mg daily, change to 20 mg twice daily Apresoline 100 mg every 6 hours, change to 100 mg every 8 hours Catapres TTS 3 patch Metoprolol 100 mg twice daily Discontinued HCTZ 25 mg daily Apresoline, clonidine, Vasotec as needed Hyperglycemia Hemoglobin A1c 6.2 Glucerna 1.5 bolus tube feeding Xeroderma on bilateral feet: Lac-Hydrin 12% Lotion continued. GI Prophylaxis: Prevacid via PEG tube DVT Prophylaxis: Sequential compression devices, chemical prophylaxis contraindicated secondary to intracranial hemorrhage Discharge Planning Discharge planning per case management Kayden Kelley Aug 18, 2017 07:51
[2017-08-18 08:53] VITALS: BP 102/68; PULSE 69; RESP 16; TEMP 97.2; O2SAT 99
[2017-08-18] MEDS: LACTIC ACID (AMMONIUM LACTATE) 12% LOTION 225 GM BTL TOPICAL SCH ×2 (09:29→21:00)
[2017-08-18] MEDS: NYSTATIN SUSP 500,000 U/5 ML CUP OTHER SCH ×4 (09:29→21:00)
[2017-08-18] MEDS: SENNOSIDES SYRUP 8.8 MG/5 ML CUP PEG SCH (09:29)
[2017-08-18] MEDS: LANSOPRAZOLE SOLUTAB 30 MG TAB G-TUBE SCH (09:30)
[2017-08-18] MEDS: LISINOPRIL 20 MG TAB PEG SCH ×2 (09:30→21:00)
[2017-08-18] MEDS: METOPROLOL TARTRATE 100 MG TAB PEG SCH ×2 (09:30→21:00)
[2017-08-18 12:00] VITALS: BP 118/87; PULSE 69; RESP 16; TEMP 96.1; O2SAT 98
[2017-08-18 16:00] VITALS: BP 106/79; PULSE 66; RESP 16; TEMP 98.4; O2SAT 99
[2017-08-18 22:22] VITALS: BP 114/76; PULSE 76; RESP 16; TEMP 98.3; O2SAT 98
[2017-08-19] MEDS: NIFEdipine 20 MG CAP PEG SCH ×4 (06:38→17:49)
[2017-08-19] MEDS: hydrALAZINE HCL 50 MG TAB PEG SCH ×3 (06:38→17:49)
--- NOTE | 2017-08-19 07:53 | HHI.PR ---
Subjective Remarks Patient seen and examined today in follow-up for hemorrhagic CVA. Patient not indicate any new complaints. No change in clinical status. Awaiting case management discharge planning Objective Vitals Vital Signs Date Time Temp Pulse Resp B/P (MAP) Pulse Ox O2 Delivery O2 Flow Rate FiO2 08/18/17 22:22 98.3 76 16 114/76 (89) 98 08/18/17 16:00 98.4 66 16 106/79 (88) 99 08/18/17 12:00 96.1 69 16 118/87 (97) 98 08/18/17 08:53 97.2 69 16 102/68 (79) 99 I/O 08/18/17 08/18/17 08/18/17 08/19/17 08/19/17 08/19/17 06:59 14:59 22:59 06:59 14:59 22:59 Intake Total 270 ml 1010 ml Balance 270 ml 1010 ml Intake Oral 0 ml Tube Feeding 120 ml 480 ml Tube Irrigant 530 ml Other 150 ml # Voids 0 1 2 # Bowel Movements 0 1 1 Objective Remarks GENERAL: Well-developed, well-nourished, in no acute distress. Awake, responds minimally with head nods. Trying to speak HEENT: Head is normocephalic without any lesions or masses noted. Facial features are symmetric. Eyes: Conjunctivae were clear. CARDIAC: Regular rhythm, regular rate. S1/S2 are heard. 2/6 ejection, no gallops or rubs. LUNGS: Clear to auscultation bilaterally. No wheeze, rhonchi or rales. No use of accessory muscles on inspiration or expiration. ABDOMEN: Soft, nontender. Nondistended. Bowel sounds heard in all 4 quadrants. No organomegaly or masses. Negative rebound, negative guarding, PEG tube noted without any signs of infection EXTREMITIES: No edema, pulses are equal bilaterally. No cyanosis or clubbing NEUROLOGY: Patient is moving left upper extremity and able to move left foot. Patient unable to move right upper and lower extremity. Procedures Peg Tube placed 05/08/17 (Dr. De Los Santos) Urinary Catheter: No Vascular Central Line Catheter: No A/P Assessment and Plan Intracranial hemorrhage, 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 Neurosurgery evaluated patient states no surgical intervention Continue PT/OT/ST Consulted as indicated patient is stable to be discharged to rehabilitation facility Patient is improving per therapy, they indicate patient would benefit from a acute care facility that could supply her more therapy than we can offer here Case management consulted for inpatient rehabilitation, who indicated patient is homeless, no discharge disposition Dysphagia suspect secondary to intracranial bleed, Post PEG placement 05/09/17. Speech therapy indicates patient is nothing by mouth, to continue to follow and advance diet per exam Dietary consulted and made recommendations for bolus feeding Hypertension emergency, nursing staff has been holding blood pressure medication due to parameters of low blood pressure Nifedipine 40 mg every 6 hours Lisinopril 10 mg twice daily Apresoline 50 mg every 6 hours Catapres TTS 3 patch Metoprolol 100 mg twice daily Apresoline, clonidine, Vasotec as needed Hyperglycemia Hemoglobin A1c 6.2 Glucerna 1.5 bolus tube feeding Xeroderma on bilateral feet: Lac-Hydrin 12% Lotion continued. GI Prophylaxis: Prevacid via PEG tube DVT Prophylaxis: Sequential compression devices, chemical prophylaxis contraindicated secondary to intracranial hemorrhage Discharge Planning Discharge planning per case management Kayden Kelley Aug 19, 2017 07:53
[2017-08-19 08:01] VITALS: BP 102/68; PULSE 56; RESP 16; TEMP 97.8; O2SAT 100
[2017-08-19] MEDS: LISINOPRIL 20 MG TAB PEG SCH ×2 (08:14→21:56)
[2017-08-19] MEDS: SENNOSIDES SYRUP 8.8 MG/5 ML CUP PEG SCH (08:14)
[2017-08-19] MEDS: METOPROLOL TARTRATE 100 MG TAB PEG SCH ×2 (08:14→21:55)
[2017-08-19] MEDS: NYSTATIN SUSP 500,000 U/5 ML CUP OTHER SCH ×4 (08:14→21:56)
[2017-08-19] MEDS: LACTIC ACID (AMMONIUM LACTATE) 12% LOTION 225 GM BTL TOPICAL SCH ×2 (08:15→21:00)
[2017-08-19] MEDS: LANSOPRAZOLE SOLUTAB 30 MG TAB G-TUBE SCH (09:00)
[2017-08-19 20:00] VITALS: BP 164/96; PULSE 84; RESP 16; TEMP 99.3; O2SAT 100
[2017-08-20] VITALS: BP 170/84; PULSE 63; RESP 20; TEMP 97.9; O2SAT 100
[2017-08-20] MEDS: NIFEdipine 20 MG CAP PEG SCH ×4 (00:48→17:11)
[2017-08-20] MEDS: hydrALAZINE HCL 50 MG TAB PEG SCH ×4 (00:48→17:11)
[2017-08-20 04:00] VITALS: BP 130/85; PULSE 66; RESP 16; TEMP 98.7; O2SAT 100
[2017-08-20 08:00] VITALS: BP 121/74; PULSE 61; RESP 20; TEMP 97.4; O2SAT 98
[2017-08-20] MEDS: LACTIC ACID (AMMONIUM LACTATE) 12% LOTION 225 GM BTL TOPICAL SCH (09:00)
[2017-08-20] MEDS: SENNOSIDES SYRUP 8.8 MG/5 ML CUP PEG SCH (10:13)
[2017-08-20] MEDS: METOPROLOL TARTRATE 100 MG TAB PEG SCH ×2 (10:13→22:52)
[2017-08-20] MEDS: LISINOPRIL 20 MG TAB PEG SCH ×2 (10:13→22:53)
[2017-08-20] MEDS: LANSOPRAZOLE SOLUTAB 30 MG TAB G-TUBE SCH (10:14)
[2017-08-20] MEDS: NYSTATIN SUSP 500,000 U/5 ML CUP OTHER SCH ×4 (10:14→22:52)
[2017-08-20 13:15] VITALS: BP 136/88; PULSE 68; RESP 16; TEMP 96.2; O2SAT 99
--- NOTE | 2017-08-20 14:30 | HHI.PR ---
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 Patient not indicate any new complaints. No change in clinical status. Continue monitor blood pressure. Objective Vitals Vital Signs Date Time Temp Pulse Resp B/P (MAP) Pulse Ox O2 Delivery O2 Flow Rate FiO2 08/20/17 13:15 96.2 68 16 136/88 (104) 99 08/20/17 08:00 97.4 61 20 121/74 (90) 98 08/20/17 04:00 98.7 66 16 130/85 (100) 100 08/20/17 00:00 97.9 63 20 170/84 (112) 100 08/19/17 20:00 99.3 84 16 164/96 (118) 100 08/19/17 20:00 99.3 84 16 164/96 (118) 100 I/O 08/19/17 08/19/17 08/19/17 08/20/17 08/20/17 08/20/17 07:00 15:00 23:00 07:00 15:00 23:00 Intake Total 0 ml 0 ml 240 ml Balance 0 ml 0 ml 240 ml Intake Oral 0 ml 0 ml Tube Feeding 240 ml # Voids 2 1 1 1 # Bowel Movements 1 1 2 1 Objective Remarks GENERAL: Well-developed, well-nourished, in no acute distress. Awake, responds minimally with head nods. Trying to speak HEENT: Head is normocephalic without any lesions or masses noted. Facial features are symmetric. Eyes: Conjunctivae were clear. CARDIAC: Regular rhythm, regular rate. S1/S2 are heard. 2/6 ejection, no gallops or rubs. LUNGS: Clear to auscultation bilaterally. No wheeze, rhonchi or rales. No use of accessory muscles on inspiration or expiration. ABDOMEN: Soft, nontender. Nondistended. Bowel sounds heard in all 4 quadrants. No organomegaly or masses. Negative rebound, negative guarding, PEG tube noted without any signs of infection EXTREMITIES: No edema, pulses are equal bilaterally. No cyanosis or clubbing NEUROLOGY: Patient is moving left upper extremity and able to move left foot. Patient unable to move right upper and lower extremity. Procedures Peg Tube placed 05/08/17 (Dr. De Los Santos) Urinary Catheter: No Vascular Central Line Catheter: No A/P Assessment and Plan Intracranial hemorrhage, 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 Neurosurgery evaluated patient states no surgical intervention Continue PT/OT/ST Consulted as indicated patient is stable to be discharged to rehabilitation facility Patient is improving per therapy, they indicate patient would benefit from a acute care facility that could supply her more therapy than we can offer here Case management consulted for inpatient rehabilitation, who indicated patient is homeless, no discharge disposition Dysphagia suspect secondary to intracranial bleed, Post PEG placement 05/09/17. Speech therapy indicates patient is nothing by mouth, to continue to follow and advance diet per exam Dietary consulted and made recommendations for bolus feeding Hypertension emergency, nursing staff has been holding blood pressure medication due to parameters of low blood pressure Nifedipine 40 mg every 6 hours Lisinopril 10 mg twice daily Apresoline 50 mg every 6 hours Catapres TTS 3 patch Metoprolol 100 mg twice daily HCTZ 25 mg daily Apresoline, clonidine, Vasotec as needed Hyperglycemia Hemoglobin A1c 6.2 Glucerna 1.5 bolus tube feeding Xeroderma on bilateral feet: Lac-Hydrin 12% Lotion continued. GI Prophylaxis: Prevacid via PEG tube DVT Prophylaxis: Sequential compression devices, chemical prophylaxis contraindicated secondary to intracranial hemorrhage Discharge Planning Discharge planning per case management Kayden Kelley Aug 20, 2017 14:30
[2017-08-20] MEDS ORDERED: HYDROCHLOROTHIAZIDE 25 MG TAB PO SCH (15:00)
[2017-08-20 20:00] VITALS: BP 117/80; PULSE 74; RESP 16; TEMP 98; O2SAT 96
[2017-08-21] VITALS: BP 119/69; PULSE 70; RESP 16; TEMP 98; O2SAT 98
[2017-08-21] MEDS: hydrALAZINE HCL 50 MG TAB PEG SCH ×5 (00:26→17:54)
[2017-08-21] MEDS: NIFEdipine 20 MG CAP PEG SCH ×5 (00:26→17:54)
[2017-08-21] MEDS: LACTIC ACID (AMMONIUM LACTATE) 12% LOTION 225 GM BTL TOPICAL SCH ×3 (00:47→21:00)
[2017-08-21 04:00] VITALS: BP 90/61; PULSE 69; RESP 13; TEMP 97.6; O2SAT 96
[2017-08-21 08:00] VITALS: BP 100/65; PULSE 54; RESP 18; TEMP 96.7; O2SAT 97
--- NOTE | 2017-08-21 08:36 | HHI.PR ---
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 Patient still with episodes of hypotension. Blood pressure medication will be adjusted. Patient denies any new complaints Objective Vitals Vital Signs Date Time Temp Pulse Resp B/P (MAP) Pulse Ox O2 Delivery O2 Flow Rate FiO2 08/21/17 04:00 97.6 69 13 90/61 (71) 96 08/21/17 00:00 98.0 70 16 119/69 (86) 98 08/20/17 20:00 98.0 74 16 117/80 (92) 96 08/20/17 13:15 96.2 68 16 136/88 (104) 99 I/O 08/20/17 08/20/17 08/20/17 08/21/17 08/21/17 08/21/17 07:00 15:00 23:00 07:00 15:00 23:00 Intake Total 0 ml 240 ml 1100 ml 360 ml Balance 0 ml 240 ml 1100 ml 360 ml Intake Oral 0 ml 0 ml 0 ml Tube Feeding 240 ml 720 ml 240 ml Other 380 ml 120 ml # Voids 1 1 2 1 # Bowel Movements 2 1 2 0 Objective Remarks GENERAL: Well-developed, well-nourished, in no acute distress. Awake, responds minimally with head nods. Trying to speak HEENT: Head is normocephalic without any lesions or masses noted. Facial features are symmetric. Eyes: Conjunctivae were clear. CARDIAC: Regular rhythm, regular rate. S1/S2 are heard. 2/6 ejection, no gallops or rubs. LUNGS: Clear to auscultation bilaterally. No wheeze, rhonchi or rales. No use of accessory muscles on inspiration or expiration. ABDOMEN: Soft, nontender. Nondistended. Bowel sounds heard in all 4 quadrants. No organomegaly or masses. Negative rebound, negative guarding, PEG tube noted without any signs of infection EXTREMITIES: No edema, pulses are equal bilaterally. No cyanosis or clubbing NEUROLOGY: Patient is moving left upper extremity and able to move left foot. Patient unable to move right upper and lower extremity. Procedures Peg Tube placed 05/08/17 (Dr. De Los Santos) Urinary Catheter: No Vascular Central Line Catheter: No A/P Assessment and Plan Intracranial hemorrhage, 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 Neurosurgery evaluated patient states no surgical intervention Continue PT/OT/ST Consulted as indicated patient is stable to be discharged to rehabilitation facility Patient is improving per therapy, they indicate patient would benefit from a acute care facility that could supply her more therapy than we can offer here Case management consulted for inpatient rehabilitation, who indicated patient is homeless, no discharge disposition Dysphagia suspect secondary to intracranial bleed, Post PEG placement 05/09/17. Speech therapy indicates patient is nothing by mouth, to continue to follow and advance diet per exam Dietary consulted and made recommendations for bolus feeding Hypertension emergency, nursing staff has been holding blood pressure medication due to parameters of low blood pressure Nifedipine 40 mg every 6 hours Lisinopril 10 mg twice daily Apresoline 50 mg every 6 hours Catapres TTS 3 patch Metoprolol 100 mg twice daily Discontinue HCTZ 25 mg daily Apresoline, clonidine, Vasotec as needed Hyperglycemia Hemoglobin A1c 6.2 Glucerna 1.5 bolus tube feeding Xeroderma on bilateral feet: Lac-Hydrin 12% Lotion continued. GI Prophylaxis: Prevacid via PEG tube DVT Prophylaxis: Sequential compression devices, chemical prophylaxis contraindicated secondary to intracranial hemorrhage Discharge Planning Discharge planning per case management Kayden Kelley Aug 21, 2017 08:36
[2017-08-21] MEDS: METOPROLOL TARTRATE 100 MG TAB PEG SCH ×2 (09:00→21:01)
[2017-08-21] MEDS: SENNOSIDES SYRUP 8.8 MG/5 ML CUP PEG SCH (09:00)
[2017-08-21] MEDS: NYSTATIN SUSP 500,000 U/5 ML CUP OTHER SCH ×3 (09:56→17:54)
[2017-08-21] MEDS: LISINOPRIL 20 MG TAB PEG SCH ×2 (09:56→21:01)
[2017-08-21] MEDS: LANSOPRAZOLE SOLUTAB 30 MG TAB G-TUBE SCH (09:56)
[2017-08-21 12:00] VITALS: BP 108/75; PULSE 53; RESP 16; TEMP 98.6; O2SAT 100
[2017-08-21 16:00] VITALS: BP 108/69; PULSE 66; RESP 16; TEMP 98.2; O2SAT 100
[2017-08-21 20:00] VITALS: BP 129/80; PULSE 70; RESP 16; TEMP 97.5; O2SAT 96
[2017-08-22] MEDS: NIFEdipine 20 MG CAP PEG SCH ×4 (00:10→18:15)
[2017-08-22] MEDS: hydrALAZINE HCL 50 MG TAB PEG SCH ×4 (00:10→18:15)
[2017-08-22 04:00] VITALS: BP 157/85; PULSE 65; RESP 16; TEMP 97.5; O2SAT 98
[2017-08-22 08:00] VITALS: BP 140/88; PULSE 78; RESP 16; TEMP 97.5; O2SAT 100
[2017-08-22] MEDS: LANSOPRAZOLE SOLUTAB 30 MG TAB G-TUBE SCH (09:32)
[2017-08-22] MEDS: METOPROLOL TARTRATE 100 MG TAB PEG SCH ×2 (09:32→21:00)
[2017-08-22] MEDS: SENNOSIDES SYRUP 8.8 MG/5 ML CUP PEG SCH (09:32)
[2017-08-22] MEDS: LISINOPRIL 20 MG TAB PEG SCH ×2 (09:32→21:34)
[2017-08-22] MEDS: LACTIC ACID (AMMONIUM LACTATE) 12% LOTION 225 GM BTL TOPICAL SCH ×2 (09:37→21:00)
--- NOTE | 2017-08-22 10:11 | HHI.PR ---
Subjective Remarks Follow-up for hemorrhagic CVA, hypertension. Patient aphasic; nods her head "yes" slightly when asked if she is ok this morning. Objective Vitals Vital Signs Date Time Temp Pulse Resp B/P (MAP) Pulse Ox O2 Delivery O2 Flow Rate FiO2 08/22/17 08:00 97.5 78 16 140/88 (105) 100 08/22/17 04:00 97.5 65 16 157/85 (109) 98 08/21/17 20:00 97.5 70 16 129/80 (96) 96 08/21/17 16:00 98.2 66 16 108/69 (82) 100 08/21/17 12:00 98.6 53 16 108/75 (86) 100 I/O 08/21/17 08/21/17 08/21/17 08/22/17 08/22/17 08/22/17 07:00 15:00 23:00 07:00 15:00 23:00 Intake Total 360 ml 740 ml 400 ml 540 ml Balance 360 ml 740 ml 400 ml 540 ml Intake Oral 0 ml 0 ml 0 ml Tube Feeding 240 ml 480 ml 240 ml 240 ml Tube Irrigant 260 ml 160 ml 300 ml Other 120 ml # Voids 1 3 1 # Bowel Movements 0 1 0 Objective Remarks GENERAL: Well nourished well-developed patient in no apparent distress. CARDIOVASCULAR: Regular rate and rhythm. 2/6 murmur. RESPIRATORY: No accessory muscle use. Clear to auscultation bilaterally. GASTROINTESTINAL: Abdomen soft, non-tender, non-distended. NEUROLOGICAL: Awake and alert. Aphasic. Weak grasp Left hand. Procedures Peg Tube placed 05/08/17 (Dr. De Los Santos) Urinary Catheter: No Vascular Central Line Catheter: No A/P Assessment and Plan Intracranial hemorrhage Secondary to uncontrolled hypertension and hypertensive emergency Thalamic ICH with intraventricular extension. No surgical intervention per Dr. Wang. Neurology following, ok for discharge to rehab. Continue PT/OT/ST Dysphagia suspect secondary to intracranial bleed Post PEG placement 05/09/17. Patient initially pureed diet with honey thickened liquids, tsp by tsp, but reevaluated by speech therapy on 06/14 and made NPO as she had clinical symptoms of aspiration with all consistencies. Dietary following with recommendations as below: Jevity 1.5 boluses of 240mls @ 9AM, 1PM, & 6PM and 120mls @ 9PM. Flush 30mls water before and after each bolus feeding. Additional 100ml free water flush q6hrs. Hypertension emergency/HTN: Stable. Nifedipine 40 mg q6h Lisinopril 40 mg daily Hydralazine 100 mg every 6 hours Catapres 0.3 mg patch weekly Metoprolol 100 mg twice daily HCTZ 25 mg po daily, restarted on 08/04. Hydralazine prn for SBP >150. Continue to monitor and adjust medication as needed. Febrile illness: Resolved. Could be secondary to occult infection or possible neurologic from CVA, hemorrhage 05/28 Chest x-ray indicated mild L lung atelectasis versus infiltrate. 05/31 Chest x-ray appears improved from prior; no focal consolidations noted. Urinalysis was normal Blood culture 05/28 NGTD S/p Levaquin 750 mg daily for total of 7 days Hypernatremia and hyperchloremia: Resolved. Likely to related to decreased by mouth intake. -S/p IVF -Monitor BMP periodically. Pre-renal azotemia: Recurrent. BUN 20 on 07/08. Cr normal. -S/p IVF -Continue free water flushes Hyperglycemia Hemoglobin A1c 6.2 Glucerna 1.5 for feeding Oral thrush: S/p Fluconazole treatment S/p Nystatin 500,000 units qid swab on patient's tongue and mouth Onychomycosis/Hyperkeratotic keratomas at the left fifth digits bilaterally: Podiatry debrided nails at bedside on 08/01/17. 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 GI Prophylaxis: Prevacid via PEG tube DVT Prophylaxis: SCDs. Chemical prophylaxis contraindicated secondary to intracranial hemorrhage Discharge Planning 07/22: Per patient cannot go to [place] [facility] as she is homeless and does not have a discharge disposition in place. 08/09/17: Per , continue to follow for SSI/BUSHRA approval which is needed to place patient. Yuly Shafer Aug 22, 2017 10:11
[2017-08-22 12:00] VITALS: BP 136/83; PULSE 55; RESP 16; TEMP 96.8; O2SAT 98
[2017-08-22] MEDS: REMOVE OLD CATAPRES (CLONIDINE) PATCH T-DERMAL SCH (15:00)
[2017-08-22] MEDS: cloNIDine HCL 0.3 MG/24 HR PATCH T-DERMAL SCH (16:25)
[2017-08-22 20:00] VITALS: BP 120/77; PULSE 76; RESP 18; TEMP 98.2; O2SAT 98
[2017-08-23] VITALS: BP 129/69
[2017-08-23] MEDS: NIFEdipine 20 MG CAP PEG SCH ×5 (01:29→23:28)
[2017-08-23] MEDS: hydrALAZINE HCL 50 MG TAB PEG SCH ×6 (01:29→23:28)
[2017-08-23 08:00] VITALS: BP 108/62; PULSE 75; RESP 16; TEMP 97.7; O2SAT 99
[2017-08-23] MEDS: LANSOPRAZOLE SOLUTAB 30 MG TAB G-TUBE SCH (10:45)
[2017-08-23] MEDS: METOPROLOL TARTRATE 100 MG TAB PEG SCH ×2 (10:45→21:00)
[2017-08-23] MEDS: LISINOPRIL 20 MG TAB PEG SCH ×2 (10:53→20:57)
[2017-08-23] MEDS: SENNOSIDES SYRUP 8.8 MG/5 ML CUP PEG SCH (10:57)
[2017-08-23] MEDS: LACTIC ACID (AMMONIUM LACTATE) 12% LOTION 225 GM BTL TOPICAL SCH ×2 (11:09→21:02)
--- NOTE | 2017-08-23 13:24 | HHI.PR ---
Subjective Remarks Follow-up for hemorrhagic CVA, hypertension. Patient nods "yes" when I ask her if she is alright. Objective Vitals Vital Signs Date Time Temp Pulse Resp B/P (MAP) Pulse Ox O2 Delivery O2 Flow Rate FiO2 08/23/17 08:00 97.7 75 16 108/62 (77) 99 08/23/17 00:00 129/69 (89) 08/22/17 20:00 98.2 76 18 120/77 (91) 98 I/O 08/22/17 08/22/17 08/22/17 08/23/17 08/23/17 08/23/17 07:00 15:00 23:00 07:00 15:00 23:00 Intake Total 540 ml 1140 ml 0 ml Balance 540 ml 1140 ml 0 ml Intake Oral 0 ml 0 ml Tube Feeding 240 ml 720 ml Tube Irrigant 300 ml 100 ml Other 320 ml # Voids 1 1 4 1 # Bowel Movements 0 1 Objective Remarks GENERAL: Well nourished well-developed patient in no apparent distress. ENT: Tongue with white material present. CARDIOVASCULAR: Regular rate and rhythm. 2/6 murmur. RESPIRATORY: No accessory muscle use. Clear to auscultation bilaterally. GASTROINTESTINAL: Abdomen soft, non-tender, non-distended. NEUROLOGICAL: Awake and alert. Aphasic. Weak grasp Left hand. Procedures Peg Tube placed 05/08/17 (Dr. De Los Santos) Urinary Catheter: No Vascular Central Line Catheter: No A/P Assessment and Plan Intracranial hemorrhage Secondary to uncontrolled hypertension and hypertensive emergency Thalamic ICH with intraventricular extension. No surgical intervention per Dr. Wang. Neurology following, ok for discharge to rehab. Continue PT/OT/ST Dysphagia suspected secondary to intracranial bleed Post PEG placement 05/09/17. Patient initially pureed diet with honey thickened liquids, tsp by tsp, but reevaluated by speech therapy on 06/14 and made NPO as she had clinical symptoms of aspiration with all consistencies. Dietary following with recommendations as below: Jevity 1.5 boluses of 240mls @ 9AM, 1PM, & 6PM and 120mls @ 9PM. Flush 30mls water before and after each bolus feeding. Additional 100ml free water flush q6hrs. Hypertension emergency/HTN: Improved. Nifedipine 40 mg q6h Lisinopril 40 mg daily Hydralazine 100 mg every 6 hours Catapres 0.3 mg patch weekly Metoprolol 100 mg twice daily HCTZ 25 mg po daily, restarted on 08/04. Hydralazine prn for SBP >150. Continue to monitor and adjust medication as needed. Febrile illness: Resolved. Could be secondary to occult infection or possible neurologic from CVA, hemorrhage 05/28 Chest x-ray indicated mild L lung atelectasis versus infiltrate. 05/31 Chest x-ray appears improved from prior; no focal consolidations noted. Urinalysis was normal Blood culture 05/28 NGTD S/p Levaquin 750 mg daily for total of 7 days Hypernatremia and hyperchloremia: Resolved. Likely to related to decreased by mouth intake. -S/p IVF -Monitor BMP periodically. Pre-renal azotemia: Recurrent. BUN 20 on 07/08. Cr normal. -S/p IVF -Continue free water flushes Hyperglycemia Hemoglobin A1c 6.2 Glucerna 1.5 for feeding Oral thrush: Persistent S/p Fluconazole treatment Restart Nystatin 5 mL qid swab on patient's tongue and mouth Onychomycosis/Hyperkeratotic keratomas at the left fifth digits bilaterally: Podiatry debrided nails at bedside on 08/01/17. 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 GI Prophylaxis: Prevacid via PEG tube DVT Prophylaxis: SCDs. Chemical prophylaxis contraindicated secondary to intracranial hemorrhage Discharge Planning 07/22: Per patient cannot go to [facility] as she is homeless and does not have a discharge disposition in place. 08/09/17: Per , continue to follow for SSI/BUSHRA approval which is needed to place patient. Yuly Shafer Aug 23, 2017 13:24
[2017-08-23] MEDS: NYSTATIN SUSP 500,000 U/5 ML CUP OTHER SCH ×2 (18:00→20:56)
[2017-08-23 20:00] VITALS: BP 128/79; PULSE 65; RESP 18; TEMP 97.4; O2SAT 98
[2017-08-23] MEDS: hydrALAZINE HCL 25 MG TAB PEG PRN (20:14)
[2017-08-24 06:08] VITALS: BP 127/67
[2017-08-24] MEDS: NIFEdipine 20 MG CAP PEG SCH ×3 (06:09→17:29)
[2017-08-24] MEDS: hydrALAZINE HCL 50 MG TAB PEG SCH ×3 (06:09→17:29)
[2017-08-24 07:50] VITALS: BP 138/91; PULSE 72; RESP 20; TEMP 97.6; O2SAT 100
[2017-08-24] MEDS: LANSOPRAZOLE SOLUTAB 30 MG TAB G-TUBE SCH (09:00)
[2017-08-24] MEDS: NYSTATIN SUSP 500,000 U/5 ML CUP OTHER SCH ×4 (09:00→21:17)
[2017-08-24] MEDS: LISINOPRIL 20 MG TAB PEG SCH ×2 (09:00→21:18)
[2017-08-24] MEDS: SENNOSIDES SYRUP 8.8 MG/5 ML CUP PEG SCH (09:00)
[2017-08-24] MEDS: METOPROLOL TARTRATE 100 MG TAB PEG SCH ×2 (09:00→21:18)
[2017-08-24] MEDS: LACTIC ACID (AMMONIUM LACTATE) 12% LOTION 225 GM BTL TOPICAL SCH ×2 (09:00→21:00)
--- NOTE | 2017-08-24 11:42 | HHI.PR ---
Subjective Remarks Follow-up for hemorrhagic CVA, hypertension. Nods head "yes" when I ask if she is ok. Objective Vitals Vital Signs Date Time Temp Pulse Resp B/P (MAP) Pulse Ox O2 Delivery O2 Flow Rate FiO2 08/24/17 07:50 97.6 72 20 138/91 (107) 100 Automatic Cuff 08/24/17 06:08 127/67 (87) 08/23/17 20:00 97.4 65 18 128/79 (95) 98 I/O 08/23/17 08/23/17 08/23/17 08/24/17 08/24/17 08/24/17 07:00 15:00 23:00 07:00 15:00 23:00 Intake Total 0 ml 730 ml 480 ml 300 ml Balance 0 ml 730 ml 480 ml 300 ml Intake Oral 0 ml 0 ml Tube Feeding 480 ml 480 ml 0 ml Tube Irrigant 300 ml Other 250 ml # Voids 1 2 2 Objective Remarks GENERAL: Well nourished well-developed patient in no apparent distress. CARDIOVASCULAR: Regular rate and rhythm. 2/6 murmur. RESPIRATORY: No accessory muscle use. Clear to auscultation bilaterally. GASTROINTESTINAL: Abdomen soft, non-tender, non-distended. NEUROLOGICAL: Awake and alert. Aphasic. Weak grasp Left hand. Procedures Peg Tube placed 05/08/17 (Dr. De Los Santos) Urinary Catheter: No Vascular Central Line Catheter: No A/P Assessment and Plan Intracranial hemorrhage Secondary to uncontrolled hypertension and hypertensive emergency Thalamic ICH with intraventricular extension. No surgical intervention per Dr. Wang. Neurology following, ok for discharge to rehab. Continue PT/OT/ST Dysphagia suspected secondary to intracranial bleed Post PEG placement 05/09/17. Patient initially pureed diet with honey thickened liquids, tsp by tsp, but reevaluated by speech therapy on 06/14 and made NPO as she had clinical symptoms of aspiration with all consistencies. Dietary following with recommendations as below: Jevity 1.5 boluses of 240mls @ 9AM, 1PM, & 6PM and 120mls @ 9PM. Flush 30mls water before and after each bolus feeding. Additional 100ml free water flush q6hrs. Hypertension emergency/HTN: Stable Nifedipine 40 mg q6h Lisinopril 40 mg daily Hydralazine 100 mg every 6 hours Catapres 0.3 mg patch weekly Metoprolol 100 mg twice daily HCTZ 25 mg po daily, restarted on 08/04. Hydralazine prn for SBP >150. Continue to monitor and adjust medication as needed. Febrile illness: Resolved. Could be secondary to occult infection or possible neurologic from CVA, hemorrhage 05/28 Chest x-ray indicated mild L lung atelectasis versus infiltrate. 05/31 Chest x-ray appears improved from prior; no focal consolidations noted. Urinalysis was normal Blood culture 05/28 NGTD S/p Levaquin 750 mg daily for total of 7 days Hypernatremia and hyperchloremia: Resolved. Likely to related to decreased by mouth intake. -S/p IVF -Monitor BMP periodically. Pre-renal azotemia: Recurrent. BUN 20 on 07/08. Cr normal. -S/p IVF -Continue free water flushes Hyperglycemia Hemoglobin A1c 6.2 Glucerna 1.5 for feeding Oral thrush: S/p Fluconazole treatment Continue Nystatin 5 mL qid swab on patient's tongue and mouth Onychomycosis/Hyperkeratotic keratomas at the left fifth digits bilaterally: Podiatry debrided nails at bedside on 08/01/17. 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 GI Prophylaxis: Prevacid via PEG tube DVT Prophylaxis: SCDs. Chemical prophylaxis contraindicated secondary to intracranial hemorrhage Discharge Planning 07/22: Per CM patient cannot go to [place] [facility] as she is homeless and does not have a discharge disposition in place. 08/09/17: Per , continue to follow for SSI/BUSHRA approval which is needed to place patient. Yuly Shafer Aug 24, 2017 11:42
[2017-08-24 11:50] VITALS: BP 140/81; PULSE 60; RESP 20; TEMP 98.6; O2SAT 100
[2017-08-24 15:50] VITALS: BP 158/104; PULSE 65; RESP 20; TEMP 96.6; O2SAT 96
[2017-08-24 20:00] VITALS: BP 148/98; PULSE 82; RESP 16; TEMP 98.1; O2SAT 100
[2017-08-25] VITALS: BP 148/93; PULSE 67; RESP 15; TEMP 97; O2SAT 93
[2017-08-25] MEDS: NIFEdipine 20 MG CAP PEG SCH ×4 (00:59→17:43)
[2017-08-25] MEDS: hydrALAZINE HCL 50 MG TAB PEG SCH ×4 (00:59→17:42)
[2017-08-25 04:00] VITALS: BP 117/79; PULSE 73; RESP 16; TEMP 99.1; O2SAT 99
[2017-08-25 08:00] VITALS: BP 138/60; PULSE 72; RESP 16; TEMP 96.9; O2SAT 96
--- NOTE | 2017-08-25 08:39 | HHI.PR ---
Subjective Remarks Follow-up for hemorrhagic CVA, hypertension. Patients nods "yes" when I ask if she is ok. Objective Vitals Vital Signs Date Time Temp Pulse Resp B/P (MAP) Pulse Ox O2 Delivery O2 Flow Rate FiO2 08/25/17 04:00 99.1 73 16 117/79 (92) 99 08/25/17 00:00 97.0 67 15 148/93 (111) 93 08/24/17 20:00 98.1 82 16 148/98 (115) 100 08/24/17 15:50 96.6 65 20 158/104 (122) 96 08/24/17 11:50 98.6 60 20 140/81 (100) 100 I/O 08/24/17 08/24/17 08/24/17 08/25/17 08/25/17 08/25/17 07:00 15:00 23:00 07:00 15:00 23:00 Intake Total 300 ml 1420 ml Balance 300 ml 1420 ml Intake Oral 0 ml Tube Feeding 0 ml 720 ml Tube Irrigant 300 ml 700 ml # Voids 2 5 1 # Bowel Movements 0 0 Objective Remarks GENERAL: Well nourished well-developed patient in no apparent distress. CARDIOVASCULAR: Regular rate and rhythm. 2/6 murmur loudest at LLSB. RESPIRATORY: No accessory muscle use. Clear to auscultation bilaterally. GASTROINTESTINAL: Abdomen soft, non-tender, non-distended. NEUROLOGICAL: Awake and alert. Aphasic. Weak grasp Left hand. Procedures Peg Tube placed 05/08/17 (Dr. De Los Santos) Urinary Catheter: No Vascular Central Line Catheter: No A/P Assessment and Plan Intracranial hemorrhage Secondary to uncontrolled hypertension and hypertensive emergency Thalamic ICH with intraventricular extension. No surgical intervention per Dr. Wang. Neurology following, ok for discharge to rehab. Continue PT/OT/ST Dysphagia suspected secondary to intracranial bleed Post PEG placement 05/09/17. Patient initially pureed diet with honey thickened liquids, tsp by tsp, but reevaluated by speech therapy on 06/14 and made NPO as she had clinical symptoms of aspiration with all consistencies. Dietary following with recommendations as below: Jevity 1.5 boluses of 240mls @ 9AM, 1PM, & 6PM and 9PM. Flush 30mls water before and after each bolus feeding. Additional 160ml free water flush q6hrs. Hypertension emergency/HTN: Stable Nifedipine 40 mg q6h Lisinopril 40 mg daily Hydralazine 100 mg every 6 hours Catapres 0.3 mg patch weekly Metoprolol 100 mg twice daily HCTZ 25 mg po daily, restarted on 08/04. Hydralazine prn for SBP >150. Continue to monitor and adjust medication as needed. Febrile illness: Resolved. Could be secondary to occult infection or possible neurologic from CVA, hemorrhage 05/28 Chest x-ray indicated mild L lung atelectasis versus infiltrate. 05/31 Chest x-ray appears improved from prior; no focal consolidations noted. Urinalysis was normal Blood culture 05/28 NGTD S/p Levaquin 750 mg daily for total of 7 days Hypernatremia and hyperchloremia: Resolved. Likely to related to decreased by mouth intake. -S/p IVF -Monitor BMP periodically. Pre-renal azotemia: Recurrent. BUN 20 on 07/08. Cr normal. -S/p IVF -Continue free water flushes Hyperglycemia Hemoglobin A1c 6.2 Glucerna 1.5 for feeding Oral thrush: S/p Fluconazole treatment Continue Nystatin 5 mL qid swab on patient's tongue and mouth Onychomycosis/Hyperkeratotic keratomas at the left fifth digits bilaterally: Podiatry debrided nails at bedside on 08/01/17. 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 GI Prophylaxis: Prevacid via PEG tube DVT Prophylaxis: SCDs. Chemical prophylaxis contraindicated secondary to intracranial hemorrhage Discharge Planning 07/22: Per patient cannot go to [place] [facility] as she is homeless and does not have a discharge disposition in place. 08/09/17: Per , continue to follow for SSI/BUSHRA approval which is needed to place patient. Yuly Shafer Aug 25, 2017 08:39
[2017-08-25] MEDS: SENNOSIDES SYRUP 8.8 MG/5 ML CUP PEG SCH (08:50)
[2017-08-25] MEDS: LACTIC ACID (AMMONIUM LACTATE) 12% LOTION 225 GM BTL TOPICAL SCH ×2 (08:50→20:32)
[2017-08-25] MEDS: LISINOPRIL 20 MG TAB PEG SCH ×2 (08:51→20:32)
[2017-08-25] MEDS: LANSOPRAZOLE SOLUTAB 30 MG TAB G-TUBE SCH (08:51)
[2017-08-25] MEDS: NYSTATIN SUSP 500,000 U/5 ML CUP OTHER SCH ×4 (08:51→20:32)
[2017-08-25] MEDS: METOPROLOL TARTRATE 100 MG TAB PEG SCH ×2 (08:51→20:32)
[2017-08-25 12:51] VITALS: BP 131/78; PULSE 77
[2017-08-25 17:55] VITALS: BP 148/74; PULSE 74
[2017-08-25 20:00] VITALS: BP 164/88; PULSE 87; RESP 20; TEMP 97.7; O2SAT 98
[2017-08-26] MEDS: hydrALAZINE HCL 50 MG TAB PEG SCH ×4 (00:31→18:12)
[2017-08-26] MEDS: NIFEdipine 20 MG CAP PEG SCH ×4 (00:31→18:12)
[2017-08-26 06:00] VITALS: BP 137/83; PULSE 71
[2017-08-26 08:00] VITALS: BP 108/56; PULSE 62; RESP 18; TEMP 98.2; O2SAT 96
[2017-08-26] MEDS: NYSTATIN SUSP 500,000 U/5 ML CUP OTHER SCH ×4 (09:35→21:03)
[2017-08-26] MEDS: LACTIC ACID (AMMONIUM LACTATE) 12% LOTION 225 GM BTL TOPICAL SCH ×2 (09:35→21:10)
[2017-08-26] MEDS: SENNOSIDES SYRUP 8.8 MG/5 ML CUP PEG SCH (09:35)
[2017-08-26] MEDS: LISINOPRIL 20 MG TAB PEG SCH ×2 (09:36→21:07)
[2017-08-26] MEDS: METOPROLOL TARTRATE 100 MG TAB PEG SCH ×2 (09:36→21:07)
[2017-08-26] MEDS: LANSOPRAZOLE SOLUTAB 30 MG TAB G-TUBE SCH (09:36)
[2017-08-26 11:35] VITALS: BP 99/54; PULSE 54; RESP 14; TEMP 98.2; O2SAT 99
--- NOTE | 2017-08-26 12:12 | HHI.PR ---
Subjective Remarks Follow-up for hemorrhagic CVA, hypertension. Patient notes her head "yes" when I ask her she is okay. Objective Vitals Vital Signs Date Time Temp Pulse Resp B/P (MAP) Pulse Ox O2 Delivery O2 Flow Rate FiO2 08/26/17 11:35 98.2 54 14 99/54 (69) 99 08/26/17 08:00 98.2 62 18 108/56 (73) 96 08/26/17 06:00 71 137/83 (101) 08/25/17 20:00 97.7 87 20 164/88 (113) 98 08/25/17 17:55 74 148/74 (98) /74 08/25/17 12:51 77 131/78 (95) I/O 08/25/17 08/25/17 08/25/17 08/26/17 08/26/17 08/26/17 07:00 15:00 23:00 07:00 15:00 23:00 Intake Total 860 ml 360 ml Balance 860 ml 360 ml Intake Oral 0 ml 0 ml Tube Feeding 240 ml Tube Irrigant 300 ml 360 ml Other 320 ml # Voids 1 1 1 1 # Bowel Movements 0 2 Objective Remarks GENERAL: Well nourished well-developed patient in no apparent distress. CARDIOVASCULAR: Regular rate and rhythm. 2/6 murmur loudest at LLSB. RESPIRATORY: No accessory muscle use. Clear to auscultation bilaterally. GASTROINTESTINAL: Abdomen soft, non-tender, non-distended. NEUROLOGICAL: Awake and alert. Aphasic. Weak grasp Left hand. Procedures Peg Tube placed 05/08/17 (Dr. De Los Santos) Urinary Catheter: No Vascular Central Line Catheter: No A/P Assessment and Plan Intracranial hemorrhage Secondary to uncontrolled hypertension and hypertensive emergency Thalamic ICH with intraventricular extension. No surgical intervention per Dr. Wang. Neurology following, ok for discharge to rehab. Continue PT/OT/ST Dysphagia suspected secondary to intracranial bleed Post PEG placement 05/09/17. Patient initially pureed diet with honey thickened liquids, tsp by tsp, but reevaluated by speech therapy on 06/14 and made NPO as she had clinical symptoms of aspiration with all consistencies. Dietary following with recommendations as below: Jevity 1.5 boluses of 240mls @ 9AM, 1PM, & 6PM and 9PM. Flush 30mls water before and after each bolus feeding. Additional 160ml free water flush q6hrs. Hypertension emergency/HTN: Nifedipine 40 mg q6h Lisinopril 40 mg daily Hydralazine 100 mg every 6 hours Catapres 0.3 mg patch weekly Metoprolol 100 mg twice daily HCTZ 25 mg po daily, restarted on 08/04. Hydralazine prn for SBP >150. Continue to monitor and adjust medication as needed. 08/26: Hypotensive this morning. Hold BP meds as indicated by parameters. Remaining vitals are stable. Monitor BP q4h today. Febrile illness: Resolved. Could be secondary to occult infection or possible neurologic from CVA, hemorrhage 05/28 Chest x-ray indicated mild L lung atelectasis versus infiltrate. 05/31 Chest x-ray appears improved from prior; no focal consolidations noted. Urinalysis was normal Blood culture 05/28 NGTD S/p Levaquin 750 mg daily for total of 7 days Hypernatremia and hyperchloremia: Resolved. Likely to related to decreased by mouth intake. -S/p IVF -Monitor BMP periodically. Pre-renal azotemia: Recurrent. BUN 20 on 07/08. Cr normal. -S/p IVF -Continue free water flushes Hyperglycemia Hemoglobin A1c 6.2 Glucerna 1.5 for feeding Oral thrush: S/p Fluconazole treatment Continue Nystatin 5 mL qid swab on patient's tongue and mouth Onychomycosis/Hyperkeratotic keratomas at the left fifth digits bilaterally: Podiatry debrided nails at bedside on 08/01/17. 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 GI Prophylaxis: Prevacid via PEG tube DVT Prophylaxis: SCDs. Chemical prophylaxis contraindicated secondary to intracranial hemorrhage Discharge Planning 07/22: Per CM patient cannot go to [place] [facility] as she is homeless and does not have a discharge disposition in place. 08/09/17: Per , continue to follow for SSI/BUSHRA approval which is needed to place patient. Yuly Shafer Aug 26, 2017 12:12
[2017-08-26 16:00] VITALS: BP 134/88; PULSE 72; RESP 18; TEMP 98; O2SAT 95
[2017-08-26 20:00] VITALS: BP 134/77; PULSE 77; RESP 20; TEMP 97.4; O2SAT 96
[2017-08-27] VITALS: BP 125/72; PULSE 59
[2017-08-27] MEDS: NIFEdipine 20 MG CAP PEG SCH ×4 (00:50→18:11)
[2017-08-27] MEDS: hydrALAZINE HCL 50 MG TAB PEG SCH ×4 (00:50→18:11)
[2017-08-27 08:00] VITALS: BP 146/86; PULSE 80; RESP 18; TEMP 98.7; O2SAT 96
--- NOTE | 2017-08-27 08:47 | HHI.PR ---
Subjective Remarks Follow-up for hemorrhagic CVA, hypertension. Objective Vitals Vital Signs Date Time Temp Pulse Resp B/P (MAP) Pulse Ox O2 Delivery O2 Flow Rate FiO2 08/27/17 00:00 59 125/72 (89) 08/26/17 20:00 97.4 77 20 134/77 (96) 96 08/26/17 16:00 98.0 72 18 134/88 (103) 95 08/26/17 11:35 98.2 54 14 99/54 (69) 99 I/O 08/26/17 08/26/17 08/26/17 08/27/17 08/27/17 08/27/17 07:00 15:00 23:00 07:00 15:00 23:00 Intake Total 360 ml 900 ml 0 ml Balance 360 ml 900 ml 0 ml Intake Oral 0 ml 0 ml Tube Feeding 720 ml Tube Irrigant 360 ml 0 ml Other 180 ml # Voids 1 2 Objective Remarks GENERAL: Well nourished well-developed patient in no apparent distress. ENT: White patches to tongue. CARDIOVASCULAR: Regular rate and rhythm. 2/6 murmur loudest at LLSB. RESPIRATORY: No accessory muscle use. Clear to auscultation bilaterally. GASTROINTESTINAL: Abdomen soft, non-tender, non-distended. NEUROLOGICAL: Awake and alert. Aphasic. Weak grasp Left hand. Procedures Peg Tube placed 05/08/17 (Dr. De Los Santos) Urinary Catheter: No Vascular Central Line Catheter: No A/P Assessment and Plan Intracranial hemorrhage Secondary to uncontrolled hypertension and hypertensive emergency Thalamic ICH with intraventricular extension. No surgical intervention per Dr. Wang. Neurology following, ok for discharge to rehab. Continue PT/OT/ST Dysphagia suspected secondary to intracranial bleed Post PEG placement 05/09/17. Patient initially pureed diet with honey thickened liquids, tsp by tsp, but reevaluated by speech therapy on 06/14 and made NPO as she had clinical symptoms of aspiration with all consistencies. Dietary following with recommendations as below: Jevity 1.5 boluses of 240mls @ 9AM, 1PM, & 6PM and 9PM. Flush 30mls water before and after each bolus feeding. Additional 160ml free water flush q6hrs. Hypertension emergency/HTN: Nifedipine 40 mg q6h Lisinopril 40 mg daily Hydralazine 100 mg every 6 hours Catapres 0.3 mg patch weekly Metoprolol 100 mg twice daily HCTZ 25 mg po daily, restarted on 08/04. Hydralazine prn for SBP >150. Continue to monitor and adjust medication as needed. 08/26: Hypotensive this morning. Hold BP meds as indicated by parameters. Remaining vitals are stable. Monitor BP q4h today. 08/27: BP elevated this morning but improved at noon. Can check vitals qshift once again. Febrile illness: Resolved. Could be secondary to occult infection or possible neurologic from CVA, hemorrhage 05/28 Chest x-ray indicated mild L lung atelectasis versus infiltrate. 05/31 Chest x-ray appears improved from prior; no focal consolidations noted. Urinalysis was normal Blood culture 05/28 NGTD S/p Levaquin 750 mg daily for total of 7 days Hypernatremia and hyperchloremia: Resolved. Likely to related to decreased by mouth intake. -S/p IVF -Monitor BMP periodically. Pre-renal azotemia: Recurrent. BUN 20 on 07/08. Cr normal. -S/p IVF -Continue free water flushes Hyperglycemia Hemoglobin A1c 6.2 Glucerna 1.5 for feeding Oral thrush: S/p Fluconazole treatment Continue Nystatin 5 mL qid swab on patient's tongue and mouth Onychomycosis/Hyperkeratotic keratomas at the left fifth digits bilaterally: Podiatry debrided nails at bedside on 08/01/17. 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 GI Prophylaxis: Prevacid via PEG tube DVT Prophylaxis: SCDs. Chemical prophylaxis contraindicated secondary to intracranial hemorrhage Discharge Planning 07/22: Per patient cannot go to [place] as she is homeless and does not have a discharge disposition in place. 08/09/17: Per , continue to follow for SSI/BUSHRA approval which is needed to place patient. Yuly Shafer Aug 27, 2017 08:46
[2017-08-27] MEDS: NYSTATIN SUSP 500,000 U/5 ML CUP OTHER SCH ×4 (09:51→20:24)
[2017-08-27] MEDS: METOPROLOL TARTRATE 100 MG TAB PEG SCH ×2 (09:52→20:24)
[2017-08-27] MEDS: LANSOPRAZOLE SOLUTAB 30 MG TAB G-TUBE SCH (09:52)
[2017-08-27] MEDS: SENNOSIDES SYRUP 8.8 MG/5 ML CUP PEG SCH (09:52)
[2017-08-27] MEDS: LISINOPRIL 20 MG TAB PEG SCH ×2 (09:52→20:24)
[2017-08-27] MEDS: LACTIC ACID (AMMONIUM LACTATE) 12% LOTION 225 GM BTL TOPICAL SCH ×2 (09:52→20:26)
[2017-08-27 12:00] VITALS: BP 138/74; PULSE 80; RESP 18; TEMP 98.6; O2SAT 96
[2017-08-27 18:09] VITALS: BP 134/98; PULSE 87
[2017-08-27 20:00] VITALS: BP 163/91; PULSE 94; RESP 18; TEMP 98.8; O2SAT 98
[2017-08-28] VITALS: BP 148/99; PULSE 99; RESP 17; TEMP 99.2; O2SAT 99
[2017-08-28] MEDS: hydrALAZINE HCL 50 MG TAB PEG SCH ×4 (00:17→17:05)
[2017-08-28] MEDS: NIFEdipine 20 MG CAP PEG SCH ×4 (00:17→17:05)
[2017-08-28 08:00] VITALS: BP 140/95; PULSE 108; RESP 18; TEMP 98.3; O2SAT 94
[2017-08-28] MEDS: LACTIC ACID (AMMONIUM LACTATE) 12% LOTION 225 GM BTL TOPICAL SCH ×2 (09:00→21:09)
[2017-08-28] MEDS: NYSTATIN SUSP 500,000 U/5 ML CUP OTHER SCH ×4 (09:17→20:35)
[2017-08-28] MEDS: LISINOPRIL 20 MG TAB PEG SCH ×2 (09:18→20:34)
[2017-08-28] MEDS: METOPROLOL TARTRATE 100 MG TAB PEG SCH ×2 (09:18→20:37)
[2017-08-28] MEDS: LANSOPRAZOLE SOLUTAB 30 MG TAB G-TUBE SCH (09:18)
[2017-08-28] MEDS: SENNOSIDES SYRUP 8.8 MG/5 ML CUP PEG SCH (09:18)
--- NOTE | 2017-08-28 09:39 | HHI.PR ---
Subjective Remarks Follow-up for hemorrhagic CVA, hypertension. Aphasic. Nods her head "yes" when I ask if she is ok. Objective Vitals Vital Signs Date Time Temp Pulse Resp B/P (MAP) Pulse Ox O2 Delivery O2 Flow Rate FiO2 08/28/17 08:00 98.3 108 18 140/95 (110) 94 08/28/17 00:00 99.2 99 17 148/99 (115) 99 08/27/17 20:00 98.8 94 18 163/91 (115) 98 08/27/17 18:09 87 134/98 (110) 08/27/17 12:00 98.6 80 18 138/74 (95) 96 I/O 08/27/17 08/27/17 08/27/17 08/28/17 08/28/17 08/28/17 07:00 15:00 23:00 07:00 15:00 23:00 Intake Total 0 ml 1330 ml Balance 0 ml 1330 ml Intake Oral 0 ml Tube Feeding 720 ml Tube Irrigant 610 ml # Voids 2 4 4 # Bowel Movements 1 Objective Remarks GENERAL: Well nourished well-developed patient in no apparent distress. CARDIOVASCULAR: Mildly tachycardic rate with regular rhythm. 2/6 murmur loudest at LLSB. RESPIRATORY: No accessory muscle use. Clear to auscultation bilaterally. GASTROINTESTINAL: Abdomen soft, non-tender, non-distended. NEUROLOGICAL: Awake and alert. Aphasic. Keeps Left arm raised with Left hand clenched. Procedures Peg Tube placed 05/08/17 (Dr. De Los Santos) Urinary Catheter: No Vascular Central Line Catheter: No A/P Assessment and Plan Intracranial hemorrhage Secondary to uncontrolled hypertension and hypertensive emergency Thalamic ICH with intraventricular extension. No surgical intervention per Dr. Wang. Neurology following, ok for discharge to rehab. Continue PT/OT/ST Dysphagia suspected secondary to intracranial bleed Post PEG placement 05/09/17. Patient initially pureed diet with honey thickened liquids, tsp by tsp, but reevaluated by speech therapy on 06/14 and made NPO as she had clinical symptoms of aspiration with all consistencies. Dietary following with recommendations as below: Jevity 1.5 boluses of 240mls @ 9AM, 1PM, & 6PM and 9PM. Flush 30mls water before and after each bolus feeding. Additional 160ml free water flush q6hrs. Hypertension emergency/HTN: Nifedipine 40 mg q6h Lisinopril 40 mg daily Hydralazine 100 mg every 6 hours Catapres 0.3 mg patch weekly Metoprolol 100 mg twice daily HCTZ 25 mg po daily, restarted on 08/04. Hydralazine prn for SBP >150. 08/28: BP elevated last night at 2000 hrs prior to nighttime meds; no prn med given. BP improved this morning prior to 0900 meds. Continue to monitor and adjust medication as needed. Febrile illness: Resolved. Could be secondary to occult infection or possible neurologic from CVA, hemorrhage 05/28 Chest x-ray indicated mild L lung atelectasis versus infiltrate. 05/31 Chest x-ray appears improved from prior; no focal consolidations noted. Urinalysis was normal Blood culture 05/28 NGTD S/p Levaquin 750 mg daily for total of 7 days Hypernatremia and hyperchloremia: Resolved. Likely to related to decreased by mouth intake. -S/p IVF -Monitor BMP periodically. Pre-renal azotemia: Recurrent. BUN 20 on 07/08. Cr normal. -S/p IVF -Continue free water flushes Hyperglycemia Hemoglobin A1c 6.2 Glucerna 1.5 for feeding Oral thrush: S/p Fluconazole treatment Continue Nystatin 5 mL qid swab on patient's tongue and mouth Onychomycosis/Hyperkeratotic keratomas at the left fifth digits bilaterally: Podiatry debrided nails at bedside on 08/01/17. 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 GI Prophylaxis: Prevacid via PEG tube DVT Prophylaxis: SCDs. Chemical prophylaxis contraindicated secondary to intracranial hemorrhage Discharge Planning 07/22: Per CM patient cannot go to [facility] as she is homeless and does not have a discharge disposition in place. 08/09/17: Per , continue to follow for SSI/BUSHRA approval which is needed to place patient. Yuly Shafer Aug 28, 2017 09:39
[2017-08-28 16:48] VITALS: BP 138/74; PULSE 80
[2017-08-28 20:00] VITALS: BP 162/112; PULSE 91; RESP 18; TEMP 99.1; O2SAT 98
[2017-08-29] MEDS: NIFEdipine 20 MG CAP PEG SCH ×5 (00:16→23:00)
[2017-08-29] MEDS: hydrALAZINE HCL 50 MG TAB PEG SCH ×5 (00:16→22:59)
[2017-08-29 05:21] VITALS: BP 142/99; PULSE 64; RESP 18
[2017-08-29 08:00] VITALS: BP 133/66; PULSE 88; RESP 18; TEMP 98.2; O2SAT 96
[2017-08-29] MEDS: LANSOPRAZOLE SOLUTAB 30 MG TAB G-TUBE SCH (08:32)
[2017-08-29] MEDS: LACTIC ACID (AMMONIUM LACTATE) 12% LOTION 225 GM BTL TOPICAL SCH ×2 (08:32→22:54)
[2017-08-29] MEDS: NYSTATIN SUSP 500,000 U/5 ML CUP OTHER SCH ×4 (08:32→22:18)
[2017-08-29] MEDS: LISINOPRIL 20 MG TAB PEG SCH ×2 (08:32→22:19)
[2017-08-29] MEDS: METOPROLOL TARTRATE 100 MG TAB PEG SCH ×2 (08:32→22:54)
[2017-08-29] MEDS: SENNOSIDES SYRUP 8.8 MG/5 ML CUP PEG SCH (08:32)
--- NOTE | 2017-08-29 11:04 | HHI.PR ---
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 Patient not indicate any new complaints. No change in clinical status. Objective Vitals Vital Signs Date Time Temp Pulse Resp B/P (MAP) Pulse Ox O2 Delivery O2 Flow Rate FiO2 08/29/17 08:00 98.2 88 18 133/66 (88) 96 08/29/17 05:21 64 18 142/99 (113) 08/28/17 20:00 99.1 91 18 162/112 (129) 98 08/28/17 16:48 80 138/74 (95) Automatic Cuff I/O 08/28/17 08/28/17 08/28/17 08/29/17 08/29/17 08/29/17 06:59 14:59 22:59 06:59 14:59 22:59 Intake Total 0 ml 1360 ml Balance 0 ml 1360 ml Intake Oral 0 ml Tube Feeding 960 ml Tube Irrigant 200 ml Other 200 ml # Voids 4 2 1 3 # Bowel Movements 1 1 Objective Remarks GENERAL: Well-developed, well-nourished, in no acute distress. Awake, responds minimally with head nods. Trying to speak HEENT: Head is normocephalic without any lesions or masses noted. Facial features are symmetric. Eyes: Conjunctivae were clear. CARDIAC: Regular rhythm, regular rate. S1/S2 are heard. 2/6 ejection, no gallops or rubs. LUNGS: Clear to auscultation bilaterally. No wheeze, rhonchi or rales. No use of accessory muscles on inspiration or expiration. ABDOMEN: Soft, nontender. Nondistended. Bowel sounds heard in all 4 quadrants. No organomegaly or masses. Negative rebound, negative guarding, PEG tube noted without any signs of infection EXTREMITIES: No edema, pulses are equal bilaterally. No cyanosis or clubbing NEUROLOGY: Patient is moving left upper extremity and able to move left foot. Patient unable to move right upper and lower extremity. Procedures Peg Tube placed 05/08/17 (Dr. De Los Santos) Urinary Catheter: No Vascular Central Line Catheter: No A/P Assessment and Plan Intracranial hemorrhage, 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 Neurosurgery evaluated patient states no surgical intervention Continue PT/OT/ST Consulted as indicated patient is stable to be discharged to rehabilitation facility Patient is improving per therapy, they indicate patient would benefit from a acute care facility that could supply her more therapy than we can offer here Case management consulted for inpatient rehabilitation, who indicated patient is homeless, no discharge disposition Dysphagia suspect secondary to intracranial bleed, Post PEG placement 05/09/17. Speech therapy indicates patient is nothing by mouth, to continue to follow and advance diet per exam Dietary consulted and made recommendations for bolus feeding Hypertension emergency, nursing staff has been holding blood pressure medication due to parameters of low blood pressure Nifedipine 40 mg every 6 hours Lisinopril 10 mg twice daily Apresoline 50 mg every 6 hours Catapres TTS 3 patch Metoprolol 100 mg twice daily HCTZ 25 mg daily Apresoline, clonidine, Vasotec as needed Hyperglycemia Hemoglobin A1c 6.2 Glucerna 1.5 bolus tube feeding Xeroderma on bilateral feet: Lac-Hydrin 12% Lotion continued. GI Prophylaxis: Prevacid via PEG tube DVT Prophylaxis: Sequential compression devices, chemical prophylaxis contraindicated secondary to intracranial hemorrhage Discharge Planning Discharge planning per case management Kayden Kelley Aug 29, 2017 11:04
[2017-08-29] MEDS: cloNIDine HCL 0.3 MG/24 HR PATCH T-DERMAL SCH (12:12)
[2017-08-29] MEDS: REMOVE OLD CATAPRES (CLONIDINE) PATCH T-DERMAL SCH (12:12)
[2017-08-29] MEDS: HYDROCHLOROTHIAZIDE 25 MG TAB PO SCH (12:17)
[2017-08-29 16:43] VITALS: BP 148/78; PULSE 84
[2017-08-29 20:00] VITALS: BP 182/102; PULSE 82; RESP 20; TEMP 98.5; O2SAT 98
[2017-08-30] VITALS: BP 137/84; PULSE 87
[2017-08-30 04:00] VITALS: BP 133/80; PULSE 67
[2017-08-30] MEDS: NIFEdipine 20 MG CAP PEG SCH ×4 (06:27→23:22)
[2017-08-30] MEDS: hydrALAZINE HCL 50 MG TAB PEG SCH ×4 (06:27→23:16)
[2017-08-30 08:00] VITALS: BP 128/79; PULSE 94; RESP 16; TEMP 98.1; O2SAT 95
[2017-08-30] MEDS: SENNOSIDES SYRUP 8.8 MG/5 ML CUP PEG SCH (09:07)
[2017-08-30] MEDS: LISINOPRIL 20 MG TAB PEG SCH ×2 (09:08→23:17)
[2017-08-30] MEDS: LANSOPRAZOLE SOLUTAB 30 MG TAB G-TUBE SCH (09:08)
[2017-08-30] MEDS: HYDROCHLOROTHIAZIDE 25 MG TAB PO SCH (09:08)
[2017-08-30] MEDS: NYSTATIN SUSP 500,000 U/5 ML CUP OTHER SCH ×4 (09:08→23:28)
[2017-08-30] MEDS: METOPROLOL TARTRATE 100 MG TAB PEG SCH ×2 (09:08→23:16)
[2017-08-30] MEDS: LACTIC ACID (AMMONIUM LACTATE) 12% LOTION 225 GM BTL TOPICAL SCH ×2 (09:20→23:28)
--- NOTE | 2017-08-30 10:03 | HHI.PR ---
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 Patient denies any new complaints. No change in clinical status. Objective Vitals Vital Signs Date Time Temp Pulse Resp B/P (MAP) Pulse Ox O2 Delivery O2 Flow Rate FiO2 08/30/17 08:00 98.1 94 16 128/79 (95) 95 08/30/17 04:00 67 133/80 (97) 08/30/17 00:00 87 137/84 (101) 08/29/17 20:00 98.5 82 20 182/102 (128) 98 08/29/17 16:43 84 148/78 (101) I/O 08/29/17 08/29/17 08/29/17 08/30/17 08/30/17 08/30/17 07:00 15:00 23:00 07:00 15:00 23:00 Intake Total 1020 ml 540 ml Balance 1020 ml 540 ml Intake Oral 0 ml Tube Feeding 720 ml 240 ml Tube Irrigant 300 ml Other 300 ml # Voids 3 3 2 # Bowel Movements 1 Objective Remarks GENERAL: Well-developed, well-nourished, in no acute distress. Awake, responds minimally with head nods. Trying to speak HEENT: Head is normocephalic without any lesions or masses noted. Facial features are symmetric. Eyes: Conjunctivae were clear. CARDIAC: Regular rhythm, regular rate. S1/S2 are heard. 2/6 ejection, no gallops or rubs. LUNGS: Clear to auscultation bilaterally. No wheeze, rhonchi or rales. No use of accessory muscles on inspiration or expiration. ABDOMEN: Soft, nontender. Nondistended. Bowel sounds heard in all 4 quadrants. No organomegaly or masses. Negative rebound, negative guarding, PEG tube noted without any signs of infection EXTREMITIES: No edema, pulses are equal bilaterally. No cyanosis or clubbing NEUROLOGY: Patient is moving left upper extremity and able to move left foot. Patient unable to move right upper and lower extremity. Procedures Peg Tube placed 05/08/17 (Dr. De Los Santos) Urinary Catheter: No Vascular Central Line Catheter: No A/P Assessment and Plan Intracranial hemorrhage, 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 Neurosurgery evaluated patient states no surgical intervention Continue PT/OT/ST Consulted as indicated patient is stable to be discharged to rehabilitation facility Patient is improving per therapy, they indicate patient would benefit from a acute care facility that could supply her more therapy than we can offer here Case management consulted for inpatient rehabilitation, who indicated patient is homeless, no discharge disposition Dysphagia suspect secondary to intracranial bleed, Post PEG placement 05/09/17. Speech therapy indicates patient is nothing by mouth, to continue to follow and advance diet per exam Dietary consulted and made recommendations for bolus feeding Hypertension emergency, nursing staff has been holding blood pressure medication due to parameters of low blood pressure Nifedipine 40 mg every 6 hours Lisinopril 10 mg twice daily Apresoline 50 mg every 6 hours Catapres TTS 3 patch Metoprolol 100 mg twice daily HCTZ 25 mg daily Apresoline, clonidine, Vasotec as needed Hyperglycemia Hemoglobin A1c 6.2 Glucerna 1.5 bolus tube feeding Xeroderma on bilateral feet: Lac-Hydrin 12% Lotion continued. GI Prophylaxis: Prevacid via PEG tube DVT Prophylaxis: Sequential compression devices, chemical prophylaxis contraindicated secondary to intracranial hemorrhage Discharge Planning Discharge planning per case management Kayden Kelley Aug 30, 2017 10:03
[2017-08-30 12:00] VITALS: BP 137/84
[2017-08-30 20:00] VITALS: BP 126/82; PULSE 98; RESP 16; TEMP 98.1; O2SAT 98
[2017-08-30] MEDS: POLYETHYLENE GLYCOL 17 GM PKG PO PRN (23:22)
[2017-08-31] VITALS: BP 117/73; PULSE 90; RESP 15; TEMP 98.5; O2SAT 97
[2017-08-31 04:00] VITALS: BP 111/75; PULSE 69; RESP 16; TEMP 98.5; O2SAT 98
[2017-08-31] MEDS: hydrALAZINE HCL 50 MG TAB PEG SCH ×4 (05:11→23:24)
[2017-08-31] MEDS: NIFEdipine 20 MG CAP PEG SCH ×4 (05:11→23:25)
[2017-08-31 08:00] VITALS: BP 83/54; PULSE 64; RESP 16; TEMP 96.8; O2SAT 98
--- NOTE | 2017-08-31 08:37 | HHI.PR ---
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 Patient denies any new complaints. Blood pressure still labile, still adjusting medications on a regular basis. Objective Vitals Vital Signs Date Time Temp Pulse Resp B/P (MAP) Pulse Ox O2 Delivery O2 Flow Rate FiO2 08/31/17 08:00 96.8 64 16 83/54 (64) 98 08/31/17 04:00 98.5 69 16 111/75 (87) 98 08/31/17 00:00 98.5 90 15 117/73 (88) 97 08/30/17 20:00 98.1 98 16 126/82 (97) 98 08/30/17 12:00 137/84 (101) I/O 08/30/17 08/30/17 08/30/17 08/31/17 08/31/17 08/31/17 07:00 15:00 23:00 07:00 15:00 23:00 Intake Total 540 ml 560 ml Output Total 3 ml Balance 540 ml -3 ml 560 ml Intake Oral 0 ml Tube Feeding 240 ml 240 ml Tube Irrigant 300 ml Other 320 ml Output Urine Total 3 ml Stool Total 0 ml # Voids 2 0 0 # Bowel Movements 0 0 Objective Remarks GENERAL: Well-developed, well-nourished, in no acute distress. Awake, responds minimally with head nods. Trying to speak HEENT: Head is normocephalic without any lesions or masses noted. Facial features are symmetric. Eyes: Conjunctivae were clear. CARDIAC: Regular rhythm, regular rate. S1/S2 are heard. 2/6 ejection, no gallops or rubs. LUNGS: Clear to auscultation bilaterally. No wheeze, rhonchi or rales. No use of accessory muscles on inspiration or expiration. ABDOMEN: Soft, nontender. Nondistended. Bowel sounds heard in all 4 quadrants. No organomegaly or masses. Negative rebound, negative guarding, PEG tube noted without any signs of infection EXTREMITIES: No edema, pulses are equal bilaterally. No cyanosis or clubbing NEUROLOGY: Patient is moving left upper extremity and able to move left foot. Patient unable to move right upper and lower extremity. Procedures Peg Tube placed 05/08/17 (Dr. De Los Santos) Urinary Catheter: No Vascular Central Line Catheter: No A/P Assessment and Plan Intracranial hemorrhage, 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 Neurosurgery evaluated patient states no surgical intervention Continue PT/OT/ST Consulted as indicated patient is stable to be discharged to rehabilitation facility Patient is improving per therapy, they indicate patient would benefit from a acute care facility that could supply her more therapy than we can offer here Case management consulted for inpatient rehabilitation, who indicated patient is homeless, no discharge disposition Dysphagia suspect secondary to intracranial bleed, Post PEG placement 05/09/17. Speech therapy indicates patient is nothing by mouth, to continue to follow and advance diet per exam Dietary consulted and made recommendations for bolus feeding Hypertension emergency, nursing staff has been holding blood pressure medication due to parameters of low blood pressure Nifedipine 40 mg every 6 hours Lisinopril 10 mg twice daily Apresoline 50 mg every 6 hours Catapres TTS 3 patch Metoprolol 100 mg twice daily HCTZ 25 mg daily Apresoline, clonidine, Vasotec as needed Hyperglycemia Hemoglobin A1c 6.2 Glucerna 1.5 bolus tube feeding Xeroderma on bilateral feet: Lac-Hydrin 12% Lotion continued. GI Prophylaxis: Prevacid via PEG tube DVT Prophylaxis: Sequential compression devices, chemical prophylaxis contraindicated secondary to intracranial hemorrhage Discharge Planning Discharge planning per case management Kayden Kelley Aug 31, 2017 08:37
[2017-08-31] MEDS: NYSTATIN SUSP 500,000 U/5 ML CUP OTHER SCH ×4 (08:48→23:24)
[2017-08-31] MEDS: LACTIC ACID (AMMONIUM LACTATE) 12% LOTION 225 GM BTL TOPICAL SCH ×2 (08:49→23:25)
[2017-08-31] MEDS: LISINOPRIL 20 MG TAB PEG SCH ×3 (08:49→23:25)
[2017-08-31] MEDS: METOPROLOL TARTRATE 100 MG TAB PEG SCH ×2 (08:49→23:24)
[2017-08-31] MEDS: SENNOSIDES SYRUP 8.8 MG/5 ML CUP PEG SCH (08:49)
[2017-08-31] MEDS: LANSOPRAZOLE SOLUTAB 30 MG TAB G-TUBE SCH (08:49)
[2017-08-31] MEDS: HYDROCHLOROTHIAZIDE 25 MG TAB PO SCH (08:49)
[2017-08-31 12:00] VITALS: BP 104/74; PULSE 68; RESP 16; TEMP 96.8; O2SAT 98
[2017-08-31 16:00] VITALS: BP 121/67; PULSE 51; RESP 16; TEMP 97; O2SAT 98
[2017-08-31 19:15] VITALS: BP 117/64; PULSE 74; RESP 18; TEMP 97.9; O2SAT 97
[2017-09-01] MEDS: hydrALAZINE HCL 50 MG TAB PEG SCH ×3 (05:45→17:32)
[2017-09-01] MEDS: NIFEdipine 20 MG CAP PEG SCH ×3 (05:45→17:32)
[2017-09-01 08:00] VITALS: BP 130/82; PULSE 70; RESP 20; TEMP 97.2; O2SAT 100
[2017-09-01] MEDS: SENNOSIDES SYRUP 8.8 MG/5 ML CUP PEG SCH (08:48)
[2017-09-01] MEDS: NYSTATIN SUSP 500,000 U/5 ML CUP OTHER SCH ×4 (08:48→21:10)
[2017-09-01] MEDS: LANSOPRAZOLE SOLUTAB 30 MG TAB G-TUBE SCH (08:49)
[2017-09-01] MEDS: METOPROLOL TARTRATE 100 MG TAB PEG SCH ×2 (08:49→21:10)
[2017-09-01] MEDS: LACTIC ACID (AMMONIUM LACTATE) 12% LOTION 225 GM BTL TOPICAL SCH ×2 (08:49→21:09)
[2017-09-01] MEDS: LISINOPRIL 20 MG TAB PEG SCH ×2 (08:49→21:10)
[2017-09-01] MEDS: HYDROCHLOROTHIAZIDE 25 MG TAB PO SCH (08:49)
--- NOTE | 2017-09-01 11:15 | HHI.PR ---
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 Patient not indicate any new complaints. No change in clinical status. Objective Vitals Vital Signs Date Time Temp Pulse Resp B/P (MAP) Pulse Ox O2 Delivery O2 Flow Rate FiO2 09/01/17 08:00 97.2 70 20 130/82 (98) 100 08/31/17 19:15 97.9 74 18 117/64 (81) 97 08/31/17 16:00 97.0 51 16 121/67 (85) 98 08/31/17 12:00 96.8 68 16 104/74 (84) 98 I/O 08/31/17 08/31/17 08/31/17 09/01/17 09/01/17 09/01/17 07:00 15:00 23:00 07:00 15:00 23:00 Intake Total 560 ml 600 ml Balance 560 ml 600 ml Tube Feeding 240 ml 240 ml Other 320 ml 360 ml # Voids 0 2 3 # Bowel Movements 0 Objective Remarks GENERAL: Well-developed, well-nourished, in no acute distress. Awake, responds minimally with head nods. Trying to speak HEENT: Head is normocephalic without any lesions or masses noted. Facial features are symmetric. Eyes: Conjunctivae were clear. CARDIAC: Regular rhythm, regular rate. S1/S2 are heard. 2/6 ejection, no gallops or rubs. LUNGS: Clear to auscultation bilaterally. No wheeze, rhonchi or rales. No use of accessory muscles on inspiration or expiration. ABDOMEN: Soft, nontender. Nondistended. Bowel sounds heard in all 4 quadrants. No organomegaly or masses. Negative rebound, negative guarding, PEG tube noted without any signs of infection EXTREMITIES: No edema, pulses are equal bilaterally. No cyanosis or clubbing NEUROLOGY: Patient is moving left upper extremity and able to move left foot. Patient unable to move right upper and lower extremity. Procedures Peg Tube placed 05/08/17 (Dr. De Los Santos) Urinary Catheter: No Vascular Central Line Catheter: No A/P Assessment and Plan Intracranial hemorrhage, 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 Neurosurgery evaluated patient states no surgical intervention Continue PT/OT/ST Consulted as indicated patient is stable to be discharged to rehabilitation facility Patient is improving per therapy, they indicate patient would benefit from a acute care facility that could supply her more therapy than we can offer here Case management consulted for inpatient rehabilitation, who indicated patient is homeless, no discharge disposition Dysphagia suspect secondary to intracranial bleed, Post PEG placement 05/09/17. Speech therapy indicates patient is nothing by mouth, to continue to follow and advance diet per exam Dietary consulted and made recommendations for bolus feeding Hypertension emergency, nursing staff has been holding blood pressure medication due to parameters of low blood pressure Nifedipine 40 mg every 6 hours Lisinopril 10 mg twice daily Apresoline 50 mg every 6 hours Catapres TTS 3 patch Metoprolol 100 mg twice daily HCTZ 25 mg daily Apresoline, clonidine, Vasotec as needed Hyperglycemia Hemoglobin A1c 6.2 Glucerna 1.5 bolus tube feeding Xeroderma on bilateral feet: Lac-Hydrin 12% Lotion continued. GI Prophylaxis: Prevacid via PEG tube DVT Prophylaxis: Sequential compression devices, chemical prophylaxis contraindicated secondary to intracranial hemorrhage Records were reviewed, awaiting case operator discharge planning. No change in treatment plan Discharge Planning Discharge planning per case management Kayden Kelley Sep 01, 2017 11:15
[2017-09-01 20:00] VITALS: BP 112/78; PULSE 66; RESP 18; TEMP 95.2; O2SAT 98
[2017-09-02] MEDS: NIFEdipine 20 MG CAP PEG SCH ×5 (00:20→23:57)
[2017-09-02] MEDS: hydrALAZINE HCL 50 MG TAB PEG SCH ×5 (00:20→23:57)
[2017-09-02 08:00] VITALS: BP 159/95; PULSE 65; RESP 18; TEMP 96.6; O2SAT 100
[2017-09-02] MEDS: LACTIC ACID (AMMONIUM LACTATE) 12% LOTION 225 GM BTL TOPICAL SCH ×2 (09:00→21:13)
--- NOTE | 2017-09-02 09:34 | HHI.PR ---
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 Patient is doing well. Denies any new complaints. No change in clinical status. Objective Vitals Vital Signs Date Time Temp Pulse Resp B/P (MAP) Pulse Ox O2 Delivery O2 Flow Rate FiO2 09/02/17 08:00 96.6 65 18 159/95 (116) 100 09/01/17 20:00 95.2 66 18 112/78 (89) 98 I/O 09/01/17 09/01/17 09/01/17 09/02/17 09/02/17 09/02/17 07:00 15:00 23:00 07:00 15:00 23:00 Intake Total 600 ml 680 ml Balance 600 ml 680 ml Intake Oral 0 ml Tube Feeding 240 ml 240 ml Other 360 ml 440 ml # Voids 3 3 3 # Bowel Movements 1 Objective Remarks GENERAL: Well-developed, well-nourished, in no acute distress. Awake, responds minimally with head nods. Trying to speak HEENT: Head is normocephalic without any lesions or masses noted. Facial features are symmetric. Eyes: Conjunctivae were clear. CARDIAC: Regular rhythm, regular rate. S1/S2 are heard. 2/6 ejection, no gallops or rubs. LUNGS: Clear to auscultation bilaterally. No wheeze, rhonchi or rales. No use of accessory muscles on inspiration or expiration. ABDOMEN: Soft, nontender. Nondistended. Bowel sounds heard in all 4 quadrants. No organomegaly or masses. Negative rebound, negative guarding, PEG tube noted without any signs of infection EXTREMITIES: No edema, pulses are equal bilaterally. No cyanosis or clubbing NEUROLOGY: Patient is moving left upper extremity and able to move left foot. Patient unable to move right upper and lower extremity. Procedures Peg Tube placed 05/08/17 (Dr. De Los Santos) Urinary Catheter: No Vascular Central Line Catheter: No A/P Assessment and Plan Intracranial hemorrhage, 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 Neurosurgery evaluated patient states no surgical intervention Continue PT/OT/ST Consulted as indicated patient is stable to be discharged to rehabilitation facility Case management consulted for inpatient rehabilitation, who indicated patient is homeless, no discharge disposition to inpatient rehabilitation Dysphagia suspect secondary to intracranial bleed, Post PEG placement 05/09/17. Speech therapy indicates patient is nothing by mouth, to continue to follow and advance diet per exam Dietary consulted and made recommendations for bolus feeding Hypertension emergency, nursing staff has been holding blood pressure medication due to parameters of low blood pressure Nifedipine 40 mg every 6 hours Lisinopril 10 mg twice daily Apresoline 50 mg every 6 hours Catapres TTS 3 patch Metoprolol 100 mg twice daily HCTZ 25 mg daily Apresoline, clonidine, Vasotec as needed Hyperglycemia Hemoglobin A1c 6.2 Glucerna 1.5 bolus tube feeding Xeroderma on bilateral feet: Lac-Hydrin 12% Lotion continued. GI Prophylaxis: Prevacid via PEG tube DVT Prophylaxis: Sequential compression devices, chemical prophylaxis contraindicated secondary to intracranial hemorrhage Records were reviewed, No change in treatment plan, awaiting bottle caser discharge planning. Discharge Planning Discharge planning per case management Kayden Kelley Sep 02, 2017 09:34
[2017-09-02] MEDS: NYSTATIN SUSP 500,000 U/5 ML CUP OTHER SCH ×4 (10:31→21:12)
[2017-09-02] MEDS: METOPROLOL TARTRATE 100 MG TAB PEG SCH ×2 (10:32→21:12)
[2017-09-02] MEDS: LANSOPRAZOLE SOLUTAB 30 MG TAB G-TUBE SCH (10:33)
[2017-09-02] MEDS: LISINOPRIL 20 MG TAB PEG SCH ×2 (10:33→21:12)
[2017-09-02] MEDS: HYDROCHLOROTHIAZIDE 25 MG TAB PO SCH (10:34)
[2017-09-02] MEDS: SENNOSIDES SYRUP 8.8 MG/5 ML CUP PEG SCH (10:34)
[2017-09-02 20:00] VITALS: BP 110/66; PULSE 88; RESP 18; TEMP 98.5; O2SAT 95
[2017-09-03] VITALS: BP 117/72; PULSE 66
[2017-09-03 05:06] VITALS: BP 116/70; PULSE 61
[2017-09-03] MEDS: NIFEdipine 20 MG CAP PEG SCH ×3 (05:07→18:42)
[2017-09-03] MEDS: hydrALAZINE HCL 50 MG TAB PEG SCH ×3 (05:08→18:42)
[2017-09-03 08:00] VITALS: BP 109/66; PULSE 73; RESP 18; TEMP 98.1; O2SAT 99
--- NOTE | 2017-09-03 09:51 | HHI.PR ---
Subjective Remarks Patient is examined today for follow-up on hemorrhagic CVA. Patient is trying to talk today. Patient looks much better. Does not indicate any new complaints. No change in clinical status Objective Vitals Vital Signs Date Time Temp Pulse Resp B/P (MAP) Pulse Ox O2 Delivery O2 Flow Rate FiO2 09/03/17 08:00 98.1 73 18 109/66 (80) 99 09/03/17 05:06 61 116/70 (85) 09/03/17 00:00 66 117/72 (87) 09/02/17 20:00 98.5 88 18 110/66 (81) 95 I/O 09/02/17 09/02/17 09/02/17 09/03/17 09/03/17 09/03/17 07:00 15:00 23:00 07:00 15:00 23:00 Intake Total 680 ml 0 ml Output Total 0 ml Balance 680 ml 0 ml 0 ml Intake Oral 0 ml 0 ml Tube Feeding 240 ml Other 440 ml Tube Feeding Residual Discard 0 ml # Voids 3 2 # Bowel Movements 1 Objective Remarks GENERAL: Well-developed, well-nourished, in no acute distress. Awake, responds minimally with head nods. Trying to speak HEENT: Head is normocephalic without any lesions or masses noted. Facial features are symmetric. Eyes: Conjunctivae were clear. CARDIAC: Regular rhythm, regular rate. S1/S2 are heard. 2/6 ejection, no gallops or rubs. LUNGS: Clear to auscultation bilaterally. No wheeze, rhonchi or rales. No use of accessory muscles on inspiration or expiration. ABDOMEN: Soft, nontender. Nondistended. Bowel sounds heard in all 4 quadrants. No organomegaly or masses. Negative rebound, negative guarding, PEG tube noted without any signs of infection EXTREMITIES: No edema, pulses are equal bilaterally. No cyanosis or clubbing NEUROLOGY: Patient is moving left upper extremity and able to move left foot. Patient unable to move right upper and lower extremity. Procedures Peg Tube placed 05/08/17 (Dr. De Los Santos) Urinary Catheter: No Vascular Central Line Catheter: No A/P Assessment and Plan Intracranial hemorrhage, 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 Neurosurgery evaluated patient states no surgical intervention Continue PT/OT/ST Consulted as indicated patient is stable to be discharged to rehabilitation facility Case management consulted for inpatient rehabilitation, who indicated patient is homeless, no discharge disposition to inpatient rehabilitation Dysphagia suspect secondary to intracranial bleed, Post PEG placement 05/09/17. Speech therapy indicates patient is nothing by mouth, to continue to follow and advance diet per exam Dietary consulted and made recommendations for bolus feeding Hypertension emergency, nursing staff has been holding blood pressure medication due to parameters of low blood pressure Nifedipine 40 mg every 6 hours Lisinopril 10 mg twice daily Apresoline 50 mg every 6 hours Catapres TTS 3 patch Metoprolol 100 mg twice daily Changed to HCTZ 12.5 mg daily Apresoline, clonidine, Vasotec as needed Hyperglycemia Hemoglobin A1c 6.2 Glucerna 1.5 bolus tube feeding Xeroderma on bilateral feet: Lac-Hydrin 12% Lotion continued. GI Prophylaxis: Prevacid via PEG tube DVT Prophylaxis: Sequential compression devices, chemical prophylaxis contraindicated secondary to intracranial hemorrhage Discharge Planning Discharge planning per case management Kayden Kelley Sep 03, 2017 09:51
[2017-09-03] MEDS: METOPROLOL TARTRATE 100 MG TAB PEG SCH ×2 (10:02→20:31)
[2017-09-03] MEDS: LISINOPRIL 20 MG TAB PEG SCH ×2 (10:02→20:31)
[2017-09-03] MEDS: SENNOSIDES SYRUP 8.8 MG/5 ML CUP PEG SCH (10:02)
[2017-09-03] MEDS: LANSOPRAZOLE SOLUTAB 30 MG TAB G-TUBE SCH (10:02)
[2017-09-03] MEDS: LACTIC ACID (AMMONIUM LACTATE) 12% LOTION 225 GM BTL TOPICAL SCH ×2 (10:02→20:31)
[2017-09-03 19:54] VITALS: BP 116/70; PULSE 76; RESP 16; TEMP 97; O2SAT 100
[2017-09-04] VITALS: BP 121/81; PULSE 65; RESP 18; TEMP 97.2; O2SAT 100
[2017-09-04] MEDS: NIFEdipine 20 MG CAP PEG SCH ×4 (00:55→17:48)
[2017-09-04] MEDS: hydrALAZINE HCL 50 MG TAB PEG SCH ×4 (00:55→17:48)
[2017-09-04 03:46] VITALS: BP 102/68; PULSE 69; RESP 19; TEMP 97.3; O2SAT 98
[2017-09-04 08:00] VITALS: BP 115/67; PULSE 79; RESP 17; TEMP 97.8; O2SAT 99
[2017-09-04] MEDS ORDERED: HYDROCHLOROTHIAZIDE 12.5 MG CAP PO SCH (09:00)
[2017-09-04] MEDS: METOPROLOL TARTRATE 100 MG TAB PEG SCH ×2 (09:02→22:38)
[2017-09-04] MEDS: LANSOPRAZOLE SOLUTAB 30 MG TAB G-TUBE SCH (09:02)
[2017-09-04] MEDS: LISINOPRIL 20 MG TAB PEG SCH ×2 (09:03→22:38)
[2017-09-04] MEDS: SENNOSIDES SYRUP 8.8 MG/5 ML CUP PEG SCH (09:03)
--- NOTE | 2017-09-04 09:48 | HHI.PR ---
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 Patient denies any new complaints. No change in clinical status. Blood pressure is stable. Objective Vitals Vital Signs Date Time Temp Pulse Resp B/P (MAP) Pulse Ox O2 Delivery O2 Flow Rate FiO2 09/04/17 08:00 97.8 79 17 115/67 (83) 99 09/04/17 03:46 97.3 69 19 102/68 (79) 98 09/04/17 00:00 97.2 65 18 121/81 (94) 100 09/03/17 19:54 97.0 76 16 116/70 (85) 100 I/O 09/03/17 09/03/17 09/03/17 09/04/17 09/04/17 09/04/17 07:00 15:00 23:00 07:00 15:00 23:00 Intake Total 0 ml 0 ml 0 ml Balance 0 ml 0 ml 0 ml Intake Oral 0 ml 0 ml 0 ml # Voids 2 1 2 1 # Bowel Movements 2 Objective Remarks GENERAL: Well-developed, well-nourished, in no acute distress. Awake, responds minimally with head nods. Trying to speak HEENT: Head is normocephalic without any lesions or masses noted. Facial features are symmetric. Eyes: Conjunctivae were clear. CARDIAC: Regular rhythm, regular rate. S1/S2 are heard. 2/6 ejection, no gallops or rubs. LUNGS: Clear to auscultation bilaterally. No wheeze, rhonchi or rales. No use of accessory muscles on inspiration or expiration. ABDOMEN: Soft, nontender. Nondistended. Bowel sounds heard in all 4 quadrants. No organomegaly or masses. Negative rebound, negative guarding, PEG tube noted without any signs of infection EXTREMITIES: No edema, pulses are equal bilaterally. No cyanosis or clubbing NEUROLOGY: Patient is moving left upper extremity and able to move left foot. Patient unable to move right upper and lower extremity. Procedures Peg Tube placed 05/08/17 (Dr. De Los Santos) Urinary Catheter: No Vascular Central Line Catheter: No A/P Assessment and Plan Intracranial hemorrhage, 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 Neurosurgery evaluated patient states no surgical intervention Continue PT/OT/ST Consulted as indicated patient is stable to be discharged to rehabilitation facility Case management consulted for inpatient rehabilitation, who indicated patient is homeless, no discharge disposition to inpatient rehabilitation Dysphagia suspect secondary to intracranial bleed, Post PEG placement 05/09/17. Speech therapy indicates patient is nothing by mouth, to continue to follow and advance diet per exam Dietary consulted and made recommendations for bolus feeding Hypertension emergency, nursing staff has been holding blood pressure medication due to parameters of low blood pressure Nifedipine 40 mg every 6 hours Lisinopril 10 mg twice daily Apresoline 50 mg every 6 hours Catapres TTS 3 patch Metoprolol 100 mg twice daily HCTZ 12.5 mg daily Apresoline, clonidine, Vasotec as needed Hyperglycemia Hemoglobin A1c 6.2 Glucerna 1.5 bolus tube feeding Xeroderma on bilateral feet: Lac-Hydrin 12% Lotion continued. GI Prophylaxis: Prevacid via PEG tube DVT Prophylaxis: Sequential compression devices, chemical prophylaxis contraindicated secondary to intracranial hemorrhage Records reviewed. Awaiting case management for discharge planning. No change in treatment plan Discharge Planning Discharge planning per case management Kayden Kelley Sep 04, 2017 09:48
[2017-09-04] MEDS: LACTIC ACID (AMMONIUM LACTATE) 12% LOTION 225 GM BTL TOPICAL SCH (11:47)
[2017-09-04 12:48] VITALS: BP 90/58; PULSE 57; RESP 17
[2017-09-04 17:44] VITALS: BP 110/62
[2017-09-04 20:00] VITALS: BP 128/86; PULSE 67; RESP 16; TEMP 97.4; O2SAT 94
[2017-09-05] MEDS: hydrALAZINE HCL 50 MG TAB PEG SCH ×4 (05:40→17:02)
[2017-09-05] MEDS: NIFEdipine 20 MG CAP PEG SCH ×4 (05:40→17:03)
[2017-09-05 08:00] VITALS: BP 148/82; PULSE 77; RESP 16; TEMP 98.5; O2SAT 97
[2017-09-05] MEDS: METOPROLOL TARTRATE 100 MG TAB PEG SCH ×2 (09:25→20:58)
[2017-09-05] MEDS: LACTIC ACID (AMMONIUM LACTATE) 12% LOTION 225 GM BTL TOPICAL SCH ×3 (09:25→20:57)
[2017-09-05] MEDS: LANSOPRAZOLE SOLUTAB 30 MG TAB G-TUBE SCH (09:25)
[2017-09-05] MEDS: LISINOPRIL 20 MG TAB PEG SCH ×2 (09:25→20:57)
[2017-09-05] MEDS: SENNOSIDES SYRUP 8.8 MG/5 ML CUP PEG SCH (09:25)
--- NOTE | 2017-09-05 09:54 | HHI.PR ---
Subjective Remarks Follow up hemorrhagic CVA. Patient seen and examined, lying in bed in no apparent distress. Awake and alert. Nonverbal. Tracks with eyes. Follows commands, left side flaccid. Afebrile. VSS. Objective Vitals Vital Signs Date Time Temp Pulse Resp B/P (MAP) Pulse Ox O2 Delivery O2 Flow Rate FiO2 09/05/17 08:00 98.5 77 16 148/82 (104) 97 09/04/17 20:00 97.4 67 16 128/86 (100) 94 09/04/17 17:44 110/62 (78) 09/04/17 12:48 57 17 90/58 (69) I/O 09/04/17 09/04/17 09/04/17 09/05/17 09/05/17 09/05/17 07:00 15:00 23:00 07:00 15:00 23:00 Intake Total 240 ml 100 ml Balance 240 ml 100 ml Tube Feeding 240 ml Other 100 ml # Voids 1 3 # Bowel Movements 1 1 Imaging Last Impressions Upper Extremity Ultrasound 08/03/17 0000 Signed Impressions: Service Date/Time: July 04:13 - CONCLUSION: Normal examination. Adi Quarles MD Chest X-Ray 05/31/17 0000 Signed Impressions: Service Date/Time: Wednesday, May 31, 2017 13:13 - CONCLUSION: 1. Improved right lower lung zone aeration with minimal residual airspace disease. Pipe Smart MD Head CT 04/25/17 0000 Signed Impressions: Service Date/Time: Tuesday, April 25, 2017 18:02 - CONCLUSION: 1. Evolving left thalamic hematoma. No new hemorrhage. Adi Quarles MD Abdomen X-Ray 04/12/17 1538 Signed Impressions: Service Date/Time: Wednesday, April 12, 2017 17:29 - CONCLUSION: Nonobstructive bowel gas pattern. Suresh Zapata MD Neck CTA 04/10/17 0000 Signed Impressions: Service Date/Time: Monday, April 10, 2017 22:28 - CONCLUSION: The internal carotid arteries are normal bilaterally. No significant atherosclerotic disease is noted. Eliud Du MD Head CTA 04/10/17 0000 Signed Impressions: Service Date/Time: Monday, April 10, 2017 22:50 - CONCLUSION: Mild dilatation of the basilar tip without discrete aneurysm. Some narrowing of the left middle cerebral branch after the bifurcation. Prominent left thalamic hemorrhage. Eliud Du MD Objective Remarks GENERAL: Well-developed, well-nourished, in no acute distress. Awake, responds minimally with head nods. Trying to speak HEENT: Head is normocephalic without any lesions or masses noted. Facial features are symmetric. Eyes: Conjunctivae were clear. CARDIAC: Regular rhythm, regular rate. S1/S2 are heard. 2/6 ejection, no gallops or rubs. LUNGS: Clear to auscultation bilaterally. No wheeze, rhonchi or rales. No use of accessory muscles on inspiration or expiration. ABDOMEN: Soft, nontender. Nondistended. Bowel sounds heard in all 4 quadrants. No organomegaly or masses. Negative guarding. PEG tube noted without any signs of infection EXTREMITIES: No edema, pulses are equal bilaterally. No cyanosis or clubbing NEUROLOGY: Patient is moving left upper extremity and able to move left foot. Patient unable to move right upper and lower extremity. Procedures Peg Tube placed 05/08/17 (Dr. De Los Santos) A/P Assessment and Plan Intracranial hemorrhage, 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 Neurosurgery evaluated patient states no surgical intervention Continue PT/OT/ST Consulted as indicated patient is stable to be discharged to rehabilitation facility Case management consulted for inpatient rehabilitation, who indicated patient is homeless, no discharge disposition to inpatient rehabilitation Dysphagia suspect secondary to intracranial bleed Post PEG placement 05/09/17. Speech therapy indicates patient is nothing by mouth, to continue to follow and advance diet per exam Dietary consulted and made recommendations for bolus feeding Hypertension emergency, nursing staff has been holding blood pressure medication due to parameters of low blood pressure Nifedipine 40 mg every 6 hours Lisinopril 10 mg twice daily Apresoline 50 mg every 6 hours Catapres TTS 3 patch Metoprolol 100 mg twice daily HCTZ 12.5 mg daily Apresoline, clonidine, Vasotec as needed Hyperglycemia Hemoglobin A1c 6.2 Glucerna 1.5 bolus tube feeding Xeroderma on bilateral feet: Lac-Hydrin 12% Lotion continued. GI Prophylaxis: Prevacid via PEG tube DVT Prophylaxis: SCDs. Chemical prophylaxis contraindicated secondary to intracranial hemorrhage. Discharge Planning Case management assisting. Veena Calvlilo Sep 05, 2017 09:54
[2017-09-05 12:57] VITALS: BP 126/76
[2017-09-05 14:54] VITALS: BP 108/78
[2017-09-05] MEDS: cloNIDine HCL 0.3 MG/24 HR PATCH T-DERMAL SCH (14:54)
[2017-09-05] MEDS: REMOVE OLD CATAPRES (CLONIDINE) PATCH T-DERMAL SCH (14:55)
[2017-09-05 17:04] VITALS: BP 144/83
[2017-09-05 20:00] VITALS: BP 162/96; PULSE 69; RESP 16; TEMP 98.7; O2SAT 95
[2017-09-06] MEDS: hydrALAZINE HCL 50 MG TAB PEG SCH ×5 (00:25→23:24)
[2017-09-06] MEDS: NIFEdipine 20 MG CAP PEG SCH ×5 (00:25→23:24)
[2017-09-06 07:50] VITALS: BP 139/83; PULSE 72; RESP 20; TEMP 97.3; O2SAT 99
[2017-09-06] MEDS: METOPROLOL TARTRATE 100 MG TAB PEG SCH ×2 (08:12→20:07)
[2017-09-06] MEDS: LANSOPRAZOLE SOLUTAB 30 MG TAB G-TUBE SCH (08:12)
[2017-09-06] MEDS: SENNOSIDES SYRUP 8.8 MG/5 ML CUP PEG SCH (08:12)
[2017-09-06] MEDS: LISINOPRIL 20 MG TAB PEG SCH ×2 (08:12→20:07)
[2017-09-06] MEDS: LACTIC ACID (AMMONIUM LACTATE) 12% LOTION 225 GM BTL TOPICAL SCH ×2 (08:30→20:07)
[2017-09-06 11:50] VITALS: BP 151/88; PULSE 63; RESP 20; TEMP 97.9; O2SAT 94
--- NOTE | 2017-09-06 13:46 | HHI.PR ---
Subjective Remarks Follow up hemorrhagic CVA. Patient seen and examined, lying comfortably in bed. Tracking with eyes. Nonverbal. Awake. No change in clinical condition. Objective Vitals Vital Signs Date Time Temp Pulse Resp B/P (MAP) Pulse Ox O2 Delivery O2 Flow Rate FiO2 09/06/17 11:50 97.9 63 20 151/88 (109) 94 09/06/17 07:50 97.3 72 20 139/83 (101) 99 09/05/17 20:00 98.7 69 16 162/96 (118) 95 09/05/17 17:04 144/83 (103) 09/05/17 14:54 108/78 (88) I/O 09/05/17 09/05/17 09/05/17 09/06/17 09/06/17 09/06/17 07:00 15:00 23:00 07:00 15:00 23:00 Intake Total 100 ml 1240 ml 640 ml Balance 100 ml 1240 ml 640 ml Tube Feeding 240 ml Tube Irrigant 720 ml 400 ml Other 100 ml 520 ml # Voids 3 3 # Bowel Movements 1 Imaging Last Impressions Upper Extremity Ultrasound 08/03/17 0000 Signed Impressions: Service Date/Time: July 04:13 - CONCLUSION: Normal examination. Adi Quarles MD Chest X-Ray 05/31/17 0000 Signed Impressions: Service Date/Time: Wednesday, May 31, 2017 13:13 - CONCLUSION: 1. Improved right lower lung zone aeration with minimal residual airspace disease. Pipe Smart MD Head CT 04/25/17 0000 Signed Impressions: Service Date/Time: Tuesday, April 25, 2017 18:02 - CONCLUSION: 1. Evolving left thalamic hematoma. No new hemorrhage. Adi Quarles MD Abdomen X-Ray 04/12/17 1538 Signed Impressions: Service Date/Time: Wednesday, April 12, 2017 17:29 - CONCLUSION: Nonobstructive bowel gas pattern. Suresh Zapata MD Neck CTA 04/10/17 0000 Signed Impressions: Service Date/Time: Monday, April 10, 2017 22:28 - CONCLUSION: The internal carotid arteries are normal bilaterally. No significant atherosclerotic disease is noted. Eliud Du MD Head CTA 04/10/17 0000 Signed Impressions: Service Date/Time: Monday, April 10, 2017 22:50 - CONCLUSION: Mild dilatation of the basilar tip without discrete aneurysm. Some narrowing of the left middle cerebral branch after the bifurcation. Prominent left thalamic hemorrhage. Eliud Du MD Objective Remarks GENERAL: Well-developed, well-nourished, in no acute distress. Awake, responds minimally with head nods. Trying to speak HEENT: Head is normocephalic without any lesions or masses noted. Facial features are symmetric. Eyes: Conjunctivae were clear. CARDIAC: Regular rhythm, regular rate. S1/S2 are heard. 2/6 ejection, no gallops or rubs. LUNGS: Clear to auscultation bilaterally. No wheeze, rhonchi or rales. No use of accessory muscles on inspiration or expiration. ABDOMEN: Soft, nontender. Nondistended. Bowel sounds heard in all 4 quadrants. No organomegaly or masses. Negative guarding. PEG tube noted without any signs of infection EXTREMITIES: No edema, pulses are equal bilaterally. No cyanosis or clubbing NEUROLOGY: Patient is moving left upper extremity and able to move left foot. Patient unable to move right upper and lower extremity. Procedures Peg Tube placed 05/08/17 (Dr. De Los Santos) A/P Assessment and Plan Intracranial hemorrhage, 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 Neurosurgery evaluated patient states no surgical intervention Continue PT/OT/ST Consulted as indicated patient is stable to be discharged to rehabilitation facility Case management consulted for inpatient rehabilitation, who indicated patient is homeless, no discharge disposition to inpatient rehabilitation. Dysphagia suspect secondary to intracranial bleed Post PEG placement 05/09/17. Speech therapy indicates patient is nothing by mouth, to continue to follow and advance diet per exam Dietary consulted and made recommendations for bolus feeding Hypertension emergency, nursing staff has been holding blood pressure medication due to parameters of low blood pressure Nifedipine 40 mg every 6 hours Lisinopril 10 mg twice daily Apresoline 50 mg every 6 hours Catapres TTS 3 patch Metoprolol 100 mg twice daily HCTZ 12.5 mg daily Apresoline, clonidine as needed Hyperglycemia Hemoglobin A1c 6.2 Glucerna 1.5 bolus tube feeding Xeroderma on bilateral feet: Lac-Hydrin 12% Lotion continued. GI Prophylaxis: Prevacid via PEG tube DVT Prophylaxis: SCDs. Chemical prophylaxis contraindicated secondary to intracranial hemorrhage. Discharge Planning Case management assisting. Veena Calvillo Sep 06, 2017 13:46
[2017-09-06 15:00] VITALS: BP 131/85; PULSE 63; RESP 20; TEMP 97.8; O2SAT 100
[2017-09-06 20:00] VITALS: BP 153/106; PULSE 85; RESP 20; TEMP 98.1; O2SAT 98
[2017-09-07] VITALS: BP 117/77; PULSE 77; RESP 18; TEMP 97.4; O2SAT 96
[2017-09-07 04:00] VITALS: BP 131/84; PULSE 75; RESP 20; TEMP 96.8; O2SAT 100
[2017-09-07] MEDS: NIFEdipine 20 MG CAP PEG SCH ×3 (06:23→17:31)
[2017-09-07] MEDS: hydrALAZINE HCL 50 MG TAB PEG SCH ×3 (06:23→17:31)
[2017-09-07 08:00] VITALS: BP 149/120; PULSE 83; RESP 17; TEMP 97.7; O2SAT 92
--- NOTE | 2017-09-07 08:44 | HHI.PR ---
Subjective Remarks Follow up hemorrhagic CVA. Patient seen and examined, lying in bed comfortably. Awake and alert. Follows commands in left side, right side flaccid. Patient has expressive aphasia, nonverbal. Tracks with eyes. Denies any pain. Denies any complaints. No change in clinical condition. Afebrile. Positive BM. Objective Vitals Vital Signs Date Time Temp Pulse Resp B/P (MAP) Pulse Ox O2 Delivery O2 Flow Rate FiO2 09/07/17 08:00 97.7 83 17 149/120 (130) 92 09/07/17 04:00 96.8 75 20 131/84 (100) 100 09/07/17 00:00 97.4 77 18 117/77 (90) 96 09/06/17 20:00 98.1 85 20 153/106 (122) 98 09/06/17 15:00 97.8 63 20 131/85 (100) 100 09/06/17 11:50 97.9 63 20 151/88 (109) 94 I/O 09/06/17 09/06/17 09/06/17 09/07/17 09/07/17 09/07/17 07:00 15:00 23:00 07:00 15:00 23:00 Intake Total 640 ml 0 ml 540 ml Balance 640 ml 0 ml 540 ml Intake Oral 0 ml 0 ml Tube Feeding 240 ml 240 ml Tube Irrigant 400 ml 300 ml # Voids 5 3 # Bowel Movements 1 1 Imaging Last Impressions Upper Extremity Ultrasound 08/03/17 0000 Signed Impressions: Service Date/Time: July 04:13 - CONCLUSION: Normal examination. Adi Quarles MD Chest X-Ray 05/31/17 0000 Signed Impressions: Service Date/Time: Wednesday, May 31, 2017 13:13 - CONCLUSION: 1. Improved right lower lung zone aeration with minimal residual airspace disease. Pipe Smart MD Head CT 04/25/17 0000 Signed Impressions: Service Date/Time: Tuesday, April 25, 2017 18:02 - CONCLUSION: 1. Evolving left thalamic hematoma. No new hemorrhage. Adi Quarles MD Abdomen X-Ray 04/12/17 1538 Signed Impressions: Service Date/Time: Wednesday, April 12, 2017 17:29 - CONCLUSION: Nonobstructive bowel gas pattern. Suresh Zapata MD Neck CTA 04/10/17 0000 Signed Impressions: Service Date/Time: Monday, April 10, 2017 22:28 - CONCLUSION: The internal carotid arteries are normal bilaterally. No significant atherosclerotic disease is noted. Eliud Du MD Head CTA 04/10/17 0000 Signed Impressions: Service Date/Time: Monday, April 10, 2017 22:50 - CONCLUSION: Mild dilatation of the basilar tip without discrete aneurysm. Some narrowing of the left middle cerebral branch after the bifurcation. Prominent left thalamic hemorrhage. Eliud Du MD Objective Remarks GENERAL: Well-developed, well-nourished, in no acute distress. Awake, responds minimally with head nods, tracking with eyes. Expressive aphasic, attempts to speak intermittently. HEENT: Head is normocephalic without any lesions or masses noted. Facial features are symmetric. Eyes: Conjunctivae were clear. CARDIAC: Regular rhythm, regular rate. S1/S2 are heard. 2/6 ejection, no gallops or rubs. LUNGS: Clear to auscultation bilaterally. No wheeze, rhonchi or rales. No use of accessory muscles on inspiration or expiration. ABDOMEN: Soft, nontender. Nondistended. Bowel sounds heard in all 4 quadrants. No organomegaly or masses. Negative guarding. PEG tube noted without any signs of infection, skin c/d/i, dressing intact. No erythema. EXTREMITIES: No edema, pulses are equal bilaterally. No cyanosis or clubbing NEUROLOGY: Patient is moving left upper extremity and able to move left foot. Patient unable to move right upper and lower extremity. Procedures Peg Tube placed 05/08/17 (Dr. De Los Santos) A/P Assessment and Plan Intracranial hemorrhage, 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 Neurosurgery evaluated patient states no surgical intervention Continue PT/OT/ST Case management consulted for inpatient rehabilitation, who indicated patient is homeless, no discharge disposition to inpatient rehabilitation. Dysphagia suspect secondary to intracranial bleed Post PEG placement 05/09/17. Speech therapy indicates patient is nothing by mouth, to continue to follow and advance diet per exam Dietary consulted and made recommendations for bolus feeding. Hypertension emergency, nursing staff has been holding blood pressure medication due to parameters of low blood pressure Nifedipine 40 mg every 6 hours Lisinopril 10 mg twice daily Apresoline 50 mg every 6 hours Catapres TTS 3 patch Metoprolol 100 mg twice daily HCTZ 12.5 mg daily Apresoline, clonidine as needed Hyperglycemia Hemoglobin A1c 6.2 Glucerna 1.5 bolus tube feeding Xeroderma on bilateral feet: Lac-Hydrin 12% Lotion continued. GI Prophylaxis: Prevacid via PEG tube DVT Prophylaxis: SCDs. Chemical prophylaxis contraindicated secondary to intracranial hemorrhage. Discharge Planning Patient is stable to be discharged to rehabilitation facility. Case management assisting. Veena Calvillo Sep 07, 2017 08:44
[2017-09-07 08:47] LABS: AUTOMATED NEUTROPHIL # 2.5 TH/MM3 (1.8-7.7); EOSINOPHIL # 0.2 TH/MM3 (0-0.4); EOSINOPHIL % 4.3 % (0.0-4.0); HEMATOCRIT 39.7 % (35.0-46.0); HEMOGLOBIN 12.9 GM/DL (11.6-15.3); LYMPH % 25.9 % (9.0-44.0); LYMPHOCYTE # 1.1 TH/MM3 (1.0-4.8); MEAN CELL VOLUME 85.6 FL (80.0-100.0); MEAN CORPUSCULAR HEMOGLOBIN 27.8 PG (27.0-34.0); MEAN CORPUSCULAR HGB CONC 32.5 % (32.0-36.0); MEAN PLATELET VOLUME 9.2 FL (7.0-11.0); MONO % 10.4 % (0.0-8.0); MONOCYTE # 0.5 TH/MM3 (0-0.9); NEUT % 58.4 % (16.0-70.0); PLATELET COUNT 240 TH/MM3 (150-450); RED BLOOD COUNT 4.64 MIL/MM3 (4.00-5.30); RED CELL DISTRIBUTION WIDTH 14.7 % (11.6-17.2); WHITE BLOOD COUNT 4.4 TH/MM3 (4.0-11.0)
[2017-09-07] MEDS: METOPROLOL TARTRATE 100 MG TAB PEG SCH ×2 (09:03→21:00)
[2017-09-07] MEDS: LISINOPRIL 20 MG TAB PEG SCH ×2 (09:03→21:00)
[2017-09-07] MEDS: LANSOPRAZOLE SOLUTAB 30 MG TAB G-TUBE SCH (09:03)
[2017-09-07] MEDS: SENNOSIDES SYRUP 8.8 MG/5 ML CUP PEG SCH (09:04)
[2017-09-07] MEDS: LACTIC ACID (AMMONIUM LACTATE) 12% LOTION 225 GM BTL TOPICAL SCH ×2 (09:10→21:00)
[2017-09-07 09:11] LABS: CHLORIDE 106 MEQ/L (98-107); SODIUM (NA) 142 MEQ/L (136-145)
[2017-09-07 09:14] VITALS: BP 118/87; PULSE 81
[2017-09-07 09:15] LABS: CALCIUM 9.2 MG/DL (8.5-10.1)
[2017-09-07 09:16] LABS: ALBUMIN 3.6 GM/DL (3.4-5.0); BICARBONATE 28.9 MEQ/L (21.0-32.0); BLOOD UREA NITROGEN 16 MG/DL (7-18); GLUCOSE,RANDOM 99 MG/DL (74-106)
[2017-09-07 09:19] LABS: ALT (GPT) 21 U/L (10-53); AST (GOT) 13 U/L (15-37); CREATININE 0.33 MG/DL (0.50-1.00); GLOMERULAR FILTRATION RATE 244 ML/MIN (>89)
[2017-09-07 09:21] LABS: TOTAL BILIRUBIN ADULT 0.4 MG/DL (0.2-1.0)
[2017-09-07 09:22] LABS: ALKALINE PHOSPHATASE 82 U/L (45-117)
[2017-09-07] MEDS: NYSTATIN SUSP 500,000 U/5 ML CUP SWISH-SWAL SCH ×3 (11:35→21:00)
[2017-09-07 20:00] VITALS: BP 116/75; PULSE 76; RESP 14; TEMP 98.4; O2SAT 100
[2017-09-08] VITALS: BP 134/87; PULSE 63; RESP 16; TEMP 98.8; O2SAT 100
[2017-09-08] MEDS: hydrALAZINE HCL 50 MG TAB PEG SCH ×5 (01:39→23:34)
[2017-09-08] MEDS: NIFEdipine 20 MG CAP PEG SCH ×5 (01:39→23:34)
[2017-09-08 08:00] VITALS: BP 99/61; PULSE 71; RESP 16; TEMP 96.6; O2SAT 99
[2017-09-08] MEDS: LANSOPRAZOLE SOLUTAB 30 MG TAB G-TUBE SCH (08:17)
[2017-09-08] MEDS: SENNOSIDES SYRUP 8.8 MG/5 ML CUP PEG SCH (08:17)
[2017-09-08] MEDS: NYSTATIN SUSP 500,000 U/5 ML CUP SWISH-SWAL SCH ×4 (08:17→20:29)
[2017-09-08] MEDS: LISINOPRIL 20 MG TAB PEG SCH ×2 (08:18→20:29)
[2017-09-08] MEDS: LACTIC ACID (AMMONIUM LACTATE) 12% LOTION 225 GM BTL TOPICAL SCH ×2 (09:00→20:52)
[2017-09-08] MEDS: METOPROLOL TARTRATE 100 MG TAB PEG SCH ×2 (09:00→20:29)
--- NOTE | 2017-09-08 12:07 | HHI.PR ---
Subjective Remarks Follow up hemorrhagic CVA. Patient seen and examined, lying in bed comfortably. Awake and alert. Nonverbal. No change in patient status clinically. Afebrile. Objective Vitals Vital Signs Date Time Temp Pulse Resp B/P (MAP) Pulse Ox O2 Delivery O2 Flow Rate FiO2 09/08/17 08:00 96.6 71 16 99/61 (74) 99 09/08/17 00:00 98.8 63 16 134/87 (103) 100 09/07/17 20:00 98.4 76 14 116/75 (89) 100 I/O 09/07/17 09/07/17 09/07/17 09/08/17 09/08/17 09/08/17 07:00 15:00 23:00 07:00 15:00 23:00 Intake Total 540 ml 880 ml 440 ml Balance 540 ml 880 ml 440 ml Intake Oral 0 ml Tube Feeding 240 ml 480 ml 240 ml Tube Irrigant 300 ml Other 400 ml 200 ml # Voids 3 1 0 # Bowel Movements 1 0 0 Result Diagram: 09/07/17 0840 09/07/17 0840 Imaging Last Impressions Upper Extremity Ultrasound 08/03/17 0000 Signed Impressions: Service Date/Time: July 04:13 - CONCLUSION: Normal examination. Adi Quarles MD Chest X-Ray 05/31/17 0000 Signed Impressions: Service Date/Time: Wednesday, May 31, 2017 13:13 - CONCLUSION: 1. Improved right lower lung zone aeration with minimal residual airspace disease. Pipe Smart MD Head CT 04/25/17 0000 Signed Impressions: Service Date/Time: Tuesday, April 25, 2017 18:02 - CONCLUSION: 1. Evolving left thalamic hematoma. No new hemorrhage. Adi Quarles MD Abdomen X-Ray 04/12/17 1538 Signed Impressions: Service Date/Time: Wednesday, April 12, 2017 17:29 - CONCLUSION: Nonobstructive bowel gas pattern. Suresh Zapata MD Neck CTA 04/10/17 0000 Signed Impressions: Service Date/Time: Monday, April 10, 2017 22:28 - CONCLUSION: The internal carotid arteries are normal bilaterally. No significant atherosclerotic disease is noted. Eliud Du MD Head CTA 04/10/17 0000 Signed Impressions: Service Date/Time: Monday, April 10, 2017 22:50 - CONCLUSION: Mild dilatation of the basilar tip without discrete aneurysm. Some narrowing of the left middle cerebral branch after the bifurcation. Prominent left thalamic hemorrhage. Eliud Du MD Objective Remarks GENERAL: Well-developed, well-nourished, in no acute distress. Awake, responds minimally with head nods, tracking with eyes. Expressive aphasic, attempts to speak intermittently. HEENT: Head is normocephalic without any lesions or masses noted. Facial features are symmetric. Eyes: Conjunctivae were clear. CARDIAC: Regular rhythm, regular rate. S1/S2 are heard. 2/6 ejection, no gallops or rubs. LUNGS: Clear to auscultation bilaterally. No wheeze, rhonchi or rales. No use of accessory muscles on inspiration or expiration. ABDOMEN: Soft, nontender. Nondistended. Bowel sounds heard in all 4 quadrants. No organomegaly or masses. Negative guarding. PEG tube noted without any signs of infection, skin c/d/i, dressing intact. No erythema. EXTREMITIES: No edema, pulses are equal bilaterally. No cyanosis or clubbing NEUROLOGY: Patient is moving left upper extremity and able to move left foot. Patient unable to move right upper and lower extremity. Procedures Peg Tube placed 05/08/17 (Dr. De Los Santos) A/P Assessment and Plan Intracranial hemorrhage, 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 Neurosurgery evaluated patient states no surgical intervention Continue PT/OT/ST Case management consulted for inpatient rehabilitation, who indicated patient is homeless, no discharge disposition to inpatient rehabilitation. Dysphagia suspect secondary to intracranial bleed Post PEG placement 05/09/17. Speech therapy indicates patient is nothing by mouth, to continue to follow and advance diet per exam Dietary consulted and made recommendations for bolus feeding. Hypertension emergency, nursing staff has been holding blood pressure medication due to parameters of low blood pressure Nifedipine 40 mg every 6 hours Lisinopril 10 mg twice daily Apresoline 50 mg every 6 hours Catapres TTS 3 patch Metoprolol 100 mg twice daily HCTZ 12.5 mg daily Apresoline, clonidine as needed Hyperglycemia Hemoglobin A1c 6.2 Glucerna 1.5 bolus tube feeding Xeroderma on bilateral feet: Lac-Hydrin 12% Lotion continued. GI Prophylaxis: Prevacid via PEG tube DVT Prophylaxis: SCDs. Chemical prophylaxis contraindicated secondary to intracranial hemorrhage. Discharge Planning Patient is stable to be discharged to rehabilitation facility. Case management assisting. Venea Calvillo Sep 08, 2017 12:07
[2017-09-08 21:02] VITALS: BP 111/78; PULSE 84; RESP 20; TEMP 98.5; O2SAT 100
[2017-09-08 23:36] VITALS: BP 104/74; PULSE 79
[2017-09-09 05:47] VITALS: BP 108/75; PULSE 68
[2017-09-09] MEDS: hydrALAZINE HCL 50 MG TAB PEG SCH ×4 (05:50→23:45)
[2017-09-09] MEDS: NIFEdipine 20 MG CAP PEG SCH ×4 (05:50→23:45)
[2017-09-09 08:00] VITALS: BP 102/67; PULSE 72; RESP 12; TEMP 96.7; O2SAT 99
[2017-09-09] MEDS: SENNOSIDES SYRUP 8.8 MG/5 ML CUP PEG SCH (08:47)
[2017-09-09] MEDS: NYSTATIN SUSP 500,000 U/5 ML CUP SWISH-SWAL SCH ×4 (08:48→20:39)
[2017-09-09] MEDS: LISINOPRIL 20 MG TAB PEG SCH ×2 (08:49→20:39)
[2017-09-09] MEDS: LANSOPRAZOLE SOLUTAB 30 MG TAB G-TUBE SCH (08:49)
[2017-09-09] MEDS: METOPROLOL TARTRATE 100 MG TAB PEG SCH ×2 (08:49→20:40)
[2017-09-09] MEDS: LACTIC ACID (AMMONIUM LACTATE) 12% LOTION 225 GM BTL TOPICAL SCH ×2 (08:51→20:41)
--- NOTE | 2017-09-09 11:46 | HHI.PR ---
Subjective Remarks Follow up hemorrhagic CVA. Patient seen and examined lying in bed comfortably. No change clinically. Patient awake and tracking, nonverbal with expressive aphasia. Afebrile. Positive BM. Objective Vitals Vital Signs Date Time Temp Pulse Resp B/P (MAP) Pulse Ox O2 Delivery O2 Flow Rate FiO2 09/09/17 08:00 96.7 72 12 102/67 (79) 99 09/09/17 05:47 68 108/75 (86) 09/08/17 23:36 79 104/74 (84) 09/08/17 21:02 98.5 84 20 111/78 (89) 100 I/O 09/08/17 09/08/17 09/08/17 09/09/17 09/09/17 09/09/17 07:00 15:00 23:00 07:00 15:00 23:00 Intake Total 880 ml Balance 880 ml Tube Feeding 240 ml Tube Irrigant 640 ml # Voids 0 3 3 # Bowel Movements 0 0 1 Result Diagram: 09/07/17 0840 09/07/17 0840 Imaging Last Impressions Upper Extremity Ultrasound 08/03/17 0000 Signed Impressions: Service Date/Time: July 04:13 - CONCLUSION: Normal examination. Adi Quarles MD Chest X-Ray 05/31/17 0000 Signed Impressions: Service Date/Time: Wednesday, May 31, 2017 13:13 - CONCLUSION: 1. Improved right lower lung zone aeration with minimal residual airspace disease. Pipe Smart MD Head CT 04/25/17 0000 Signed Impressions: Service Date/Time: Tuesday, April 25, 2017 18:02 - CONCLUSION: 1. Evolving left thalamic hematoma. No new hemorrhage. Adi Quarles MD Abdomen X-Ray 04/12/17 1538 Signed Impressions: Service Date/Time: Wednesday, April 12, 2017 17:29 - CONCLUSION: Nonobstructive bowel gas pattern. Suresh Zapata MD Neck CTA 04/10/17 0000 Signed Impressions: Service Date/Time: Monday, April 10, 2017 22:28 - CONCLUSION: The internal carotid arteries are normal bilaterally. No significant atherosclerotic disease is noted. Eliud Du MD Head CTA 04/10/17 0000 Signed Impressions: Service Date/Time: Monday, April 10, 2017 22:50 - CONCLUSION: Mild dilatation of the basilar tip without discrete aneurysm. Some narrowing of the left middle cerebral branch after the bifurcation. Prominent left thalamic hemorrhage. Eliud Du MD Objective Remarks GENERAL: Well-developed, well-nourished, in no acute distress. Awake, responds minimally with head nods, tracking with eyes. Expressive aphasic, attempts to speak intermittently. HEENT: Head is normocephalic without any lesions or masses noted. Facial features are symmetric. Eyes: Conjunctivae were clear. CARDIAC: Regular rhythm, regular rate. S1/S2 are heard. 2/6 ejection, no gallops or rubs. LUNGS: Clear to auscultation bilaterally. No wheeze, rhonchi or rales. No use of accessory muscles on inspiration or expiration. ABDOMEN: Soft, nontender. Nondistended. Bowel sounds heard in all 4 quadrants. No organomegaly or masses. Negative guarding. PEG tube noted without any signs of infection, skin c/d/i, dressing intact. No erythema. EXTREMITIES: No edema, pulses are equal bilaterally. No cyanosis or clubbing NEUROLOGY: Patient is moving left upper extremity and able to move left foot. Patient unable to move right upper and lower extremity. Procedures Peg Tube placed 05/08/17 (Dr. De Los Santos) A/P Assessment and Plan Intracranial hemorrhage, 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 Neurosurgery evaluated patient states no surgical intervention Continue PT/OT/ST Case management consulted for inpatient rehabilitation, who indicated patient is homeless, no discharge disposition to inpatient rehabilitation. Dysphagia suspect secondary to intracranial bleed Post PEG placement 05/09/17. Speech therapy indicates patient is nothing by mouth, to continue to follow and advance diet per exam Dietary consulted and made recommendations for bolus feeding. Hypertension emergency, nursing staff has been holding blood pressure medication due to parameters of low blood pressure Nifedipine 40 mg every 6 hours Lisinopril 10 mg twice daily Apresoline 50 mg every 6 hours Catapres TTS 3 patch Metoprolol 100 mg twice daily HCTZ 12.5 mg daily Apresoline, clonidine as needed Hyperglycemia Hemoglobin A1c 6.2 Glucerna 1.5 bolus tube feeding Xeroderma on bilateral feet: Lac-Hydrin 12% Lotion continued. GI Prophylaxis: Prevacid via PEG tube DVT Prophylaxis: SCDs. Chemical prophylaxis contraindicated secondary to intracranial hemorrhage. Discharge Planning Patient is stable to be discharged to rehabilitation facility. Case management assisting. Veena Calvillo Sep 09, 2017 11:46
[2017-09-09 22:27] VITALS: BP 139/78; PULSE 73; RESP 19; TEMP 97.8; O2SAT 95
[2017-09-10] VITALS: BP 141/76; PULSE 78; RESP 22; TEMP 98.1; O2SAT 96
[2017-09-10 04:05] VITALS: BP 112/61; PULSE 67; RESP 19; TEMP 98.1; O2SAT 98
[2017-09-10] MEDS: hydrALAZINE HCL 50 MG TAB PEG SCH ×4 (05:56→23:20)
[2017-09-10] MEDS: NIFEdipine 20 MG CAP PEG SCH ×4 (05:56→23:20)
[2017-09-10 08:00] VITALS: BP 103/59; PULSE 74; RESP 18; TEMP 97.4; O2SAT 100
[2017-09-10] MEDS: LISINOPRIL 20 MG TAB PEG SCH ×2 (08:52→20:06)
[2017-09-10] MEDS: LANSOPRAZOLE SOLUTAB 30 MG TAB G-TUBE SCH (08:52)
[2017-09-10] MEDS: SENNOSIDES SYRUP 8.8 MG/5 ML CUP PEG SCH (08:52)
[2017-09-10] MEDS: NYSTATIN SUSP 500,000 U/5 ML CUP SWISH-SWAL SCH ×4 (08:52→20:06)
[2017-09-10] MEDS: METOPROLOL TARTRATE 100 MG TAB PEG SCH ×2 (08:52→20:06)
[2017-09-10] MEDS: LACTIC ACID (AMMONIUM LACTATE) 12% LOTION 225 GM BTL TOPICAL SCH ×2 (08:53→20:07)
--- NOTE | 2017-09-10 11:20 | HHI.PR ---
Subjective Remarks Follow up hemorrhagic CVA. Patient seen and examined. Lying in bed comfortably in nad. Awake. Nonverbal. Tolerating TF. Denies any new acute complaints. Denies any recent fever, chest pain, abdominal pain, n/v/d or dysuria. Left upper and lower extremity still flaccid. Follows in upper and right extremity. No change in clinical condition. Objective Vitals Vital Signs Date Time Temp Pulse Resp B/P (MAP) Pulse Ox O2 Delivery O2 Flow Rate FiO2 09/10/17 08:00 97.4 74 18 103/59 (74) 100 09/10/17 04:05 98.1 67 19 112/61 (78) 98 09/10/17 00:00 98.1 78 22 141/76 (97) 96 09/09/17 22:27 97.8 73 19 139/78 (98) 95 I/O 09/09/17 09/09/17 09/09/17 09/10/17 09/10/17 09/10/17 07:00 15:00 23:00 07:00 15:00 23:00 Intake Total 880 ml 0 ml Balance 880 ml 0 ml Intake Oral 0 ml Tube Feeding 240 ml Tube Irrigant 640 ml # Voids 3 1 8 # Bowel Movements 1 1 1 0 Result Diagram: 09/07/17 0840 09/07/17 0840 Imaging Last Impressions Upper Extremity Ultrasound 08/03/17 0000 Signed Impressions: Service Date/Time: July 04:13 - CONCLUSION: Normal examination. Adi Quarles MD Chest X-Ray 05/31/17 0000 Signed Impressions: Service Date/Time: Wednesday, May 31, 2017 13:13 - CONCLUSION: 1. Improved right lower lung zone aeration with minimal residual airspace disease. Pipe Smart MD Head CT 04/25/17 0000 Signed Impressions: Service Date/Time: Tuesday, April 25, 2017 18:02 - CONCLUSION: 1. Evolving left thalamic hematoma. No new hemorrhage. Adi Quarles MD Abdomen X-Ray 04/12/17 1538 Signed Impressions: Service Date/Time: Wednesday, April 12, 2017 17:29 - CONCLUSION: Nonobstructive bowel gas pattern. Suresh Zapata MD Neck CTA 04/10/17 0000 Signed Impressions: Service Date/Time: Monday, April 10, 2017 22:28 - CONCLUSION: The internal carotid arteries are normal bilaterally. No significant atherosclerotic disease is noted. Eliud Du MD Head CTA 04/10/17 0000 Signed Impressions: Service Date/Time: Monday, April 10, 2017 22:50 - CONCLUSION: Mild dilatation of the basilar tip without discrete aneurysm. Some narrowing of the left middle cerebral branch after the bifurcation. Prominent left thalamic hemorrhage. Eliud Du MD Objective Remarks GENERAL: Well-developed, well-nourished, in no acute distress. Awake, responds minimally with head nods, tracking with eyes. Expressive aphasic, attempts to speak intermittently. HEENT: Head is normocephalic without any lesions or masses noted. Facial features are symmetric. Eyes: Conjunctivae were clear. CARDIAC: Regular rhythm, regular rate. S1/S2 are heard. 2/6 ejection, no gallops or rubs. LUNGS: Clear to auscultation bilaterally. No wheeze, rhonchi or rales. No use of accessory muscles on inspiration or expiration. ABDOMEN: Soft, nontender. Nondistended. Bowel sounds heard in all 4 quadrants. No organomegaly or masses. Negative guarding. PEG tube noted without any signs of infection, skin c/d/i, dressing intact. No erythema. EXTREMITIES: No edema, pulses are equal bilaterally. No cyanosis or clubbing NEUROLOGY: Patient is moving left upper extremity and able to move left foot. Patient unable to move right upper and lower extremity. Procedures Peg Tube placed 05/08/17 (Dr. De Los Santos) A/P Assessment and Plan Intracranial hemorrhage, 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 Neurosurgery evaluated patient states no surgical intervention Continue PT/OT/ST Case management consulted for inpatient rehabilitation, who indicated patient is homeless, no discharge disposition to inpatient rehabilitation. Dysphagia suspect secondary to intracranial bleed Post PEG placement 05/09/17. Speech therapy indicates patient is nothing by mouth, to continue to follow and advance diet per exam Dietary consulted and made recommendations for bolus feeding. Hypertension emergency, nursing staff has been holding blood pressure medication due to parameters of low blood pressure Nifedipine 40 mg every 6 hours Lisinopril 10 mg twice daily Apresoline 50 mg every 6 hours Catapres TTS 3 patch Metoprolol 100 mg twice daily HCTZ 12.5 mg daily Apresoline, clonidine as needed Hyperglycemia Hemoglobin A1c 6.2 Glucerna 1.5 bolus tube feeding Xeroderma on bilateral feet: Lac-Hydrin 12% Lotion continued. GI Prophylaxis: Prevacid via PEG tube DVT Prophylaxis: SCDs. Chemical prophylaxis contraindicated secondary to intracranial hemorrhage. Discharge Planning Patient is stable to be discharged to rehabilitation facility. Case management assisting. Veena Calvillo Sep 10, 2017 11:20
[2017-09-10 21:31] VITALS: BP 119/73; PULSE 66; RESP 19; TEMP 98.1; O2SAT 100
[2017-09-11] VITALS: BP 112/68; PULSE 68; RESP 20; TEMP 97.8; O2SAT 99
[2017-09-11 04:42] VITALS: BP 121/65; PULSE 64; RESP 19; TEMP 98.9; O2SAT 98
[2017-09-11] MEDS: hydrALAZINE HCL 50 MG TAB PEG SCH ×3 (05:38→17:03)
[2017-09-11] MEDS: NIFEdipine 20 MG CAP PEG SCH ×3 (05:38→17:03)
[2017-09-11 08:00] VITALS: BP 134/81; PULSE 67; RESP 16; TEMP 97.2; O2SAT 98
[2017-09-11] MEDS: SENNOSIDES SYRUP 8.8 MG/5 ML CUP PEG SCH (08:31)
[2017-09-11] MEDS: LANSOPRAZOLE SOLUTAB 30 MG TAB G-TUBE SCH (08:31)
[2017-09-11] MEDS: LISINOPRIL 20 MG TAB PEG SCH ×2 (08:31→20:47)
[2017-09-11] MEDS: NYSTATIN SUSP 500,000 U/5 ML CUP SWISH-SWAL SCH ×4 (08:31→20:48)
[2017-09-11] MEDS: METOPROLOL TARTRATE 100 MG TAB PEG SCH ×2 (08:31→20:47)
[2017-09-11] MEDS: LACTIC ACID (AMMONIUM LACTATE) 12% LOTION 225 GM BTL TOPICAL SCH ×2 (09:00→20:49)
--- NOTE | 2017-09-11 11:59 | HHI.PR ---
Subjective Remarks Follow up hemorrhagic CVA. Patient seen and examined, lying in bed asleep. Awakens to voice. Patient tracking with eyes and following commands in left upper and lower extremity, right upper and lower extremity flaccid. No change in clinical condition. Denies any report of acute events overnight. Afebrile. VSS. Tolerating TF. Objective Vitals Vital Signs Date Time Temp Pulse Resp B/P (MAP) Pulse Ox O2 Delivery O2 Flow Rate FiO2 09/11/17 08:00 97.2 67 16 134/81 (98) 98 09/11/17 04:42 98.9 64 19 121/65 (83) 98 09/11/17 00:00 97.8 68 20 112/68 (83) 99 09/10/17 21:31 98.1 66 19 119/73 (88) 100 I/O 09/10/17 09/10/17 09/10/17 09/11/17 09/11/17 09/11/17 07:00 15:00 23:00 07:00 15:00 23:00 Intake Total 0 ml 1170 ml 560 ml Balance 0 ml 1170 ml 560 ml Intake Oral 0 ml 0 ml 0 ml Tube Feeding 720 ml 240 ml Other 450 ml 320 ml # Voids 8 2 4 5 # Bowel Movements 0 3 2 Result Diagram: 09/07/17 0840 09/07/17 0840 Imaging Last Impressions Upper Extremity Ultrasound 08/03/17 0000 Signed Impressions: Service Date/Time: July 04:13 - CONCLUSION: Normal examination. Adi Quarles MD Chest X-Ray 05/31/17 0000 Signed Impressions: Service Date/Time: Wednesday, May 31, 2017 13:13 - CONCLUSION: 1. Improved right lower lung zone aeration with minimal residual airspace disease. Pipe Smart MD Head CT 04/25/17 0000 Signed Impressions: Service Date/Time: Tuesday, April 25, 2017 18:02 - CONCLUSION: 1. Evolving left thalamic hematoma. No new hemorrhage. Adi Quarles MD Abdomen X-Ray 04/12/17 1538 Signed Impressions: Service Date/Time: Wednesday, April 12, 2017 17:29 - CONCLUSION: Nonobstructive bowel gas pattern. Suresh Zapata MD Neck CTA 04/10/17 0000 Signed Impressions: Service Date/Time: Monday, April 10, 2017 22:28 - CONCLUSION: The internal carotid arteries are normal bilaterally. No significant atherosclerotic disease is noted. Eliud Du MD Head CTA 04/10/17 0000 Signed Impressions: Service Date/Time: Monday, April 10, 2017 22:50 - CONCLUSION: Mild dilatation of the basilar tip without discrete aneurysm. Some narrowing of the left middle cerebral branch after the bifurcation. Prominent left thalamic hemorrhage. Eliud Du MD Objective Remarks GENERAL: Well-developed, well-nourished, in no acute distress. Awake, responds minimally with head nods, tracking with eyes. Expressive aphasic, attempts to speak intermittently. HEENT: Head is normocephalic without any lesions or masses noted. Facial features are symmetric. Eyes: Conjunctivae were clear. CARDIAC: Regular rhythm, regular rate. S1/S2 are heard. 2/6 ejection, no gallops or rubs. LUNGS: Clear to auscultation bilaterally. No wheeze, rhonchi or rales. No use of accessory muscles on inspiration or expiration. ABDOMEN: Soft, nontender. Nondistended. Bowel sounds heard in all 4 quadrants. No organomegaly or masses. Negative guarding. PEG tube noted without any signs of infection, skin c/d/i, dressing intact. No erythema. EXTREMITIES: No edema, pulses are equal bilaterally. No cyanosis or clubbing NEUROLOGY: Patient is moving left upper extremity and able to move left foot. Patient unable to move right upper and lower extremity. Procedures Peg Tube placed 05/08/17 (Dr. De Los Santos) A/P Assessment and Plan Intracranial hemorrhage, 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 Neurosurgery evaluated patient states no surgical intervention Continue PT/OT/ST Case management consulted for inpatient rehabilitation, who indicated patient is homeless, no discharge disposition to inpatient rehabilitation. Dysphagia suspect secondary to intracranial bleed Post PEG placement 05/09/17. Speech therapy indicates patient is nothing by mouth, to continue to follow and advance diet per exam Dietary consulted and made recommendations for bolus feeding. Hypertension emergency, nursing staff has been holding blood pressure medication due to parameters of low blood pressure Nifedipine 40 mg every 6 hours Lisinopril 10 mg twice daily Apresoline 50 mg every 6 hours Catapres TTS 3 patch Metoprolol 100 mg twice daily HCTZ 12.5 mg daily Apresoline, clonidine as needed Hyperglycemia Hemoglobin A1c 6.2 Glucerna 1.5 bolus tube feeding Xeroderma on bilateral feet: Lac-Hydrin 12% Lotion continued. GI Prophylaxis: Prevacid via PEG tube DVT Prophylaxis: SCDs. Chemical prophylaxis contraindicated secondary to intracranial hemorrhage. Medical records reviewed and no change in treatment plan. Continue to monitor clinically. Discharge Planning Patient is stable to be discharged to rehabilitation facility. Case management assisting. Veena Calvillo Sep 11, 2017 11:59
[2017-09-11 16:51] VITALS: BP 128/68; PULSE 84
[2017-09-11 20:00] VITALS: BP 152/97; PULSE 65; RESP 16; TEMP 98.8; O2SAT 96
[2017-09-12] MEDS: hydrALAZINE HCL 50 MG TAB PEG SCH ×4 (00:51→18:06)
[2017-09-12] MEDS: NIFEdipine 20 MG CAP PEG SCH ×4 (01:09→18:07)
[2017-09-12 08:00] VITALS: BP 128/84; PULSE 66; RESP 18; TEMP 98; O2SAT 96
[2017-09-12] MEDS: NYSTATIN SUSP 500,000 U/5 ML CUP SWISH-SWAL SCH ×4 (08:58→20:54)
[2017-09-12] MEDS: SENNOSIDES SYRUP 8.8 MG/5 ML CUP PEG SCH (08:58)
[2017-09-12] MEDS: LACTIC ACID (AMMONIUM LACTATE) 12% LOTION 225 GM BTL TOPICAL SCH ×2 (08:58→20:54)
[2017-09-12] MEDS: LISINOPRIL 20 MG TAB PEG SCH ×2 (08:58→20:54)
[2017-09-12] MEDS: LANSOPRAZOLE SOLUTAB 30 MG TAB G-TUBE SCH (08:58)
[2017-09-12] MEDS: METOPROLOL TARTRATE 100 MG TAB PEG SCH ×2 (08:58→20:54)
--- NOTE | 2017-09-12 13:52 | HHI.PR ---
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 Patient lying in bed carefully. Patient is working with physical therapy. She denies any new complaints today. Objective Vitals Vital Signs Date Time Temp Pulse Resp B/P (MAP) Pulse Ox O2 Delivery O2 Flow Rate FiO2 09/12/17 08:00 98.0 66 18 128/84 (99) 96 09/11/17 20:00 98.8 65 16 152/97 (115) 96 09/11/17 16:51 84 128/68 (88) I/O 09/11/17 09/11/17 09/11/17 09/12/17 09/12/17 09/12/17 07:00 15:00 23:00 07:00 15:00 23:00 Intake Total 560 ml 900 ml Balance 560 ml 900 ml Intake Oral 0 ml Tube Feeding 240 ml 720 ml Other 320 ml 180 ml # Voids 5 2 # Bowel Movements 2 0 Objective Remarks GENERAL: Well-developed, well-nourished, in no acute distress. Awake, responds minimally with head nods. Trying to speak HEENT: Head is normocephalic without any lesions or masses noted. Facial features are symmetric. Eyes: Conjunctivae were clear. CARDIAC: Regular rhythm, regular rate. S1/S2 are heard. 2/6 ejection, no gallops or rubs. LUNGS: Clear to auscultation bilaterally. No wheeze, rhonchi or rales. No use of accessory muscles on inspiration or expiration. ABDOMEN: Soft, nontender. Nondistended. Bowel sounds heard in all 4 quadrants. No organomegaly or masses. Negative rebound, negative guarding, PEG tube noted without any signs of infection EXTREMITIES: No edema, pulses are equal bilaterally. No cyanosis or clubbing NEUROLOGY: Patient is moving left upper extremity and able to move left foot. Patient unable to move right upper and lower extremity. Procedures Peg Tube placed 05/08/17 (Dr. De Los Santos) Urinary Catheter: No Vascular Central Line Catheter: No A/P Assessment and Plan Intracranial hemorrhage, 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 Neurosurgery evaluated patient states no surgical intervention Continue PT/OT/ST Consulted as indicated patient is stable to be discharged to rehabilitation facility Case management consulted for inpatient rehabilitation, who indicated patient is homeless, no discharge disposition to inpatient rehabilitation Dysphagia suspect secondary to intracranial bleed, Post PEG placement 05/09/17. Speech therapy indicates patient is nothing by mouth, to continue to follow and advance diet per exam Dietary consulted and made recommendations for bolus feeding Hypertension emergency, nursing staff has been holding blood pressure medication due to parameters of low blood pressure Nifedipine 40 mg every 6 hours Lisinopril 10 mg twice daily Apresoline 50 mg every 6 hours Catapres TTS 3 patch Metoprolol 100 mg twice daily Apresoline, clonidine, Vasotec as needed Hyperglycemia Hemoglobin A1c 6.2 Glucerna 1.5 bolus tube feeding Xeroderma on bilateral feet: Lac-Hydrin 12% Lotion continued. GI Prophylaxis: Prevacid via PEG tube DVT Prophylaxis: Sequential compression devices, chemical prophylaxis contraindicated secondary to intracranial hemorrhage Records reviewed. No change in treatment plan, Awaiting case management for discharge planning. Discharge Planning Discharge planning per case management Kayden Kelley Sep 12, 2017 13:52
[2017-09-12] MEDS: REMOVE OLD CATAPRES (CLONIDINE) PATCH T-DERMAL SCH (15:00)
[2017-09-12] MEDS: cloNIDine HCL 0.3 MG/24 HR PATCH T-DERMAL SCH (15:42)
[2017-09-12 20:00] VITALS: BP 172/94; PULSE 93; RESP 20; TEMP 97.7; O2SAT 97
[2017-09-13] MEDS: NIFEdipine 20 MG CAP PEG SCH ×5 (00:39→23:29)
[2017-09-13] MEDS: hydrALAZINE HCL 50 MG TAB PEG SCH ×5 (00:41→23:29)
[2017-09-13 04:12] VITALS: BP 135/90; PULSE 69; RESP 16; TEMP 98.1; O2SAT 99
[2017-09-13 08:00] VITALS: BP 110/63; PULSE 62; RESP 18; TEMP 97.3; O2SAT 99
[2017-09-13] MEDS: NYSTATIN SUSP 500,000 U/5 ML CUP SWISH-SWAL SCH ×4 (08:29→21:26)
[2017-09-13] MEDS: LACTIC ACID (AMMONIUM LACTATE) 12% LOTION 225 GM BTL TOPICAL SCH ×2 (08:29→23:25)
[2017-09-13] MEDS: LANSOPRAZOLE SOLUTAB 30 MG TAB G-TUBE SCH (08:30)
[2017-09-13] MEDS: LISINOPRIL 20 MG TAB PEG SCH ×2 (08:30→21:26)
[2017-09-13] MEDS: METOPROLOL TARTRATE 100 MG TAB PEG SCH ×2 (08:30→21:26)
[2017-09-13] MEDS: SENNOSIDES SYRUP 8.8 MG/5 ML CUP PEG SCH (08:30)
--- NOTE | 2017-09-13 09:35 | HHI.PR ---
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 Patient not indicate any new complaints. Discussed with nursing staff, no acute events overnight. No change in clinical status. Objective Vitals Vital Signs Date Time Temp Pulse Resp B/P (MAP) Pulse Ox O2 Delivery O2 Flow Rate FiO2 09/13/17 08:00 97.3 62 18 110/63 (79) 99 09/13/17 04:12 69 16 135/90 (105) 99 Manual Cuff/Auscultation 09/12/17 20:00 97.7 93 20 172/94 (120) 97 I/O 09/12/17 09/12/17 09/12/17 09/13/17 09/13/17 09/13/17 07:00 15:00 23:00 07:00 15:00 23:00 Intake Total 1520 ml 0 ml Balance 1520 ml 0 ml Intake Oral 0 ml 0 ml Tube Feeding 960 ml Tube Irrigant 160 ml Other 400 ml # Voids 2 4 1 # Bowel Movements 0 1 Objective Remarks GENERAL: Well-developed, well-nourished, in no acute distress. Awake, responds minimally with head nods. Trying to speak HEENT: Head is normocephalic without any lesions or masses noted. Facial features are symmetric. Eyes: Conjunctivae were clear. CARDIAC: Regular rhythm, regular rate. S1/S2 are heard. 2/6 ejection, no gallops or rubs. LUNGS: Clear to auscultation bilaterally. No wheeze, rhonchi or rales. No use of accessory muscles on inspiration or expiration. ABDOMEN: Soft, nontender. Nondistended. Bowel sounds heard in all 4 quadrants. No organomegaly or masses. Negative rebound, negative guarding, PEG tube noted without any signs of infection EXTREMITIES: No edema, pulses are equal bilaterally. No cyanosis or clubbing NEUROLOGY: Patient is moving left upper extremity and able to move left foot. Patient unable to move right upper and lower extremity. Procedures Peg Tube placed 05/08/17 (Dr. De Los Santos) Urinary Catheter: No Vascular Central Line Catheter: No A/P Assessment and Plan Intracranial hemorrhage, 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 Neurosurgery evaluated patient states no surgical intervention Continue PT/OT/ST Consulted as indicated patient is stable to be discharged to rehabilitation facility Case management consulted for inpatient rehabilitation, who indicated patient is homeless, no discharge disposition to inpatient rehabilitation Dysphagia suspect secondary to intracranial bleed, Post PEG placement 05/09/17. Speech therapy indicates patient is nothing by mouth, to continue to follow and advance diet per exam Dietary consulted and made recommendations for bolus feeding Hypertension emergency, nursing staff has been holding blood pressure medication due to parameters of low blood pressure Nifedipine 40 mg every 6 hours Lisinopril 10 mg twice daily Apresoline 50 mg every 6 hours Catapres TTS 3 patch Metoprolol 100 mg twice daily Apresoline, clonidine, Vasotec as needed Hyperglycemia Hemoglobin A1c 6.2 Glucerna 1.5 bolus tube feeding Xeroderma on bilateral feet: Lac-Hydrin 12% Lotion continued. GI Prophylaxis: Prevacid via PEG tube DVT Prophylaxis: Sequential compression devices, chemical prophylaxis contraindicated secondary to intracranial hemorrhage Records reviewed. No change in treatment plan, Awaiting case management for discharge planning. Discharge Planning Discharge planning per case management Kayden Kelley Sep 13, 2017 09:35
[2017-09-13 20:00] VITALS: BP 144/89; PULSE 80; RESP 20; TEMP 98.4; O2SAT 100
[2017-09-14] MEDS: hydrALAZINE HCL 50 MG TAB PEG SCH ×3 (05:24→17:23)
[2017-09-14] MEDS: NIFEdipine 20 MG CAP PEG SCH ×3 (05:26→17:23)
[2017-09-14 08:00] VITALS: BP 109/78; PULSE 68; RESP 12; TEMP 96.6; O2SAT 99
[2017-09-14] MEDS: LACTIC ACID (AMMONIUM LACTATE) 12% LOTION 225 GM BTL TOPICAL SCH ×2 (08:27→21:00)
[2017-09-14] MEDS: NYSTATIN SUSP 500,000 U/5 ML CUP SWISH-SWAL SCH ×4 (08:27→21:00)
[2017-09-14] MEDS: LANSOPRAZOLE SOLUTAB 30 MG TAB G-TUBE SCH (08:28)
[2017-09-14] MEDS: SENNOSIDES SYRUP 8.8 MG/5 ML CUP PEG SCH (08:28)
[2017-09-14] MEDS: LISINOPRIL 20 MG TAB PEG SCH (08:29)
[2017-09-14] MEDS: METOPROLOL TARTRATE 100 MG TAB PEG SCH (08:29)
--- NOTE | 2017-09-14 09:35 | HHI.PR ---
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 Patient does not indicate any new complaints. No change in clinical status. Objective Vitals Vital Signs Date Time Temp Pulse Resp B/P (MAP) Pulse Ox O2 Delivery O2 Flow Rate FiO2 09/13/17 20:00 98.4 80 20 144/89 (107) 100 I/O 09/13/17 09/13/17 09/13/17 09/14/17 09/14/17 09/14/17 06:59 14:59 22:59 06:59 14:59 22:59 Intake Total 0 ml 0 ml 740 ml Balance 0 ml 0 ml 740 ml Intake Oral 0 ml 0 ml Tube Feeding 240 ml Other 500 ml # Voids 1 2 1 # Bowel Movements 1 Objective Remarks GENERAL: Well-developed, well-nourished, in no acute distress. Awake, responds minimally with head nods. Trying to speak HEENT: Head is normocephalic without any lesions or masses noted. Facial features are symmetric. Eyes: Conjunctivae were clear. CARDIAC: Regular rhythm, regular rate. S1/S2 are heard. 2/6 ejection, no gallops or rubs. LUNGS: Clear to auscultation bilaterally. No wheeze, rhonchi or rales. No use of accessory muscles on inspiration or expiration. ABDOMEN: Soft, nontender. Nondistended. Bowel sounds heard in all 4 quadrants. No organomegaly or masses. Negative rebound, negative guarding, PEG tube noted without any signs of infection EXTREMITIES: No edema, pulses are equal bilaterally. No cyanosis or clubbing NEUROLOGY: Patient is moving left upper extremity and able to move left foot. Patient unable to move right upper and lower extremity. Procedures Peg Tube placed 05/08/17 (Dr. De Los Santos) Urinary Catheter: No Vascular Central Line Catheter: No A/P Assessment and Plan Intracranial hemorrhage, 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 Neurosurgery evaluated patient states no surgical intervention Continue PT/OT/ST Consulted as indicated patient is stable to be discharged to rehabilitation facility Case management consulted for inpatient rehabilitation, who indicated patient is homeless, no discharge disposition to inpatient rehabilitation Dysphagia suspect secondary to intracranial bleed, Post PEG placement 05/09/17. Speech therapy indicates patient is nothing by mouth, to continue to follow and advance diet per exam Dietary consulted and made recommendations for bolus feeding Hypertension emergency, nursing staff has been holding blood pressure medication due to parameters of low blood pressure Nifedipine 40 mg every 6 hours Lisinopril 10 mg twice daily Apresoline 50 mg every 6 hours Catapres TTS 3 patch Metoprolol 100 mg twice daily Apresoline, clonidine, Vasotec as needed Hyperglycemia Hemoglobin A1c 6.2 Glucerna 1.5 bolus tube feeding Xeroderma on bilateral feet: Lac-Hydrin 12% Lotion continued. GI Prophylaxis: Prevacid via PEG tube DVT Prophylaxis: Sequential compression devices, chemical prophylaxis contraindicated secondary to intracranial hemorrhage Records reviewed. Awaiting case management for discharge planning. No change in treatment plan, Discharge Planning Discharge planning per case management Kayden Kelley Sep 14, 2017 09:35
[2017-09-15] VITALS: BP 167/103; PULSE 90; RESP 20; TEMP 98.8; O2SAT 97
[2017-09-15] MEDS: hydrALAZINE HCL 50 MG TAB PEG SCH ×4 (00:28→17:38)
[2017-09-15] MEDS: NYSTATIN SUSP 500,000 U/5 ML CUP SWISH-SWAL SCH ×5 (00:28→22:29)
[2017-09-15] MEDS: LISINOPRIL 20 MG TAB PEG SCH ×3 (00:31→22:33)
[2017-09-15] MEDS: NIFEdipine 20 MG CAP PEG SCH ×4 (00:32→17:38)
[2017-09-15] MEDS: LACTIC ACID (AMMONIUM LACTATE) 12% LOTION 225 GM BTL TOPICAL SCH ×3 (00:32→22:29)
[2017-09-15] MEDS: METOPROLOL TARTRATE 100 MG TAB PEG SCH ×3 (00:37→22:32)
[2017-09-15 08:00] VITALS: BP 142/78; PULSE 74; RESP 18; TEMP 97.7; O2SAT 96
[2017-09-15] MEDS: SENNOSIDES SYRUP 8.8 MG/5 ML CUP PEG SCH (09:00)
[2017-09-15] MEDS: LANSOPRAZOLE SOLUTAB 30 MG TAB G-TUBE SCH (09:24)
--- NOTE | 2017-09-15 11:41 | HHI.PR ---
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 Patient denies any new complaints. No change in clinical status. Objective Vitals Vital Signs Date Time Temp Pulse Resp B/P (MAP) Pulse Ox O2 Delivery O2 Flow Rate FiO2 09/15/17 08:00 97.7 74 18 142/78 (99) 96 09/15/17 00:00 98.8 90 20 167/103 (124) 97 I/O 09/14/17 09/14/17 09/14/17 09/15/17 09/15/17 09/15/17 07:00 15:00 23:00 07:00 15:00 23:00 Intake Total 200 ml 460 ml 160 ml Balance 200 ml 460 ml 160 ml Intake Oral 0 ml Tube Feeding 240 ml Other 200 ml 220 ml 160 ml # Voids 1 # Bowel Movements 0 Objective Remarks GENERAL: Well-developed, well-nourished, in no acute distress. Awake, responds minimally with head nods. Trying to speak HEENT: Head is normocephalic without any lesions or masses noted. Facial features are symmetric. Eyes: Conjunctivae were clear. CARDIAC: Regular rhythm, regular rate. S1/S2 are heard. 2/6 ejection, no gallops or rubs. LUNGS: Clear to auscultation bilaterally. No wheeze, rhonchi or rales. No use of accessory muscles on inspiration or expiration. ABDOMEN: Soft, nontender. Nondistended. Bowel sounds heard in all 4 quadrants. No organomegaly or masses. Negative rebound, negative guarding, PEG tube noted without any signs of infection EXTREMITIES: No edema, pulses are equal bilaterally. No cyanosis or clubbing NEUROLOGY: Patient is moving left upper extremity and able to move left foot. Patient unable to move right upper and lower extremity. Procedures Peg Tube placed 05/08/17 (Dr. De Los Santos) Urinary Catheter: No Vascular Central Line Catheter: No A/P Assessment and Plan Intracranial hemorrhage, 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 Neurosurgery evaluated patient states no surgical intervention Continue PT/OT/ST Consulted as indicated patient is stable to be discharged to rehabilitation facility Case management consulted for inpatient rehabilitation, who indicated patient is homeless, no discharge disposition to inpatient rehabilitation Dysphagia suspect secondary to intracranial bleed, Post PEG placement 05/09/17. Speech therapy indicates patient is nothing by mouth, to continue to follow and advance diet per exam Dietary consulted and made recommendations for bolus feeding Hypertension emergency, continue monitor blood pressure and adjust as needed Nifedipine 40 mg every 6 hours Lisinopril 10 mg twice daily Apresoline 50 mg every 6 hours Catapres TTS 3 patch Metoprolol 100 mg twice daily HCTZ 12.5 mg daily Apresoline, clonidine, Vasotec as needed Hyperglycemia Hemoglobin A1c 6.2 Glucerna 1.5 bolus tube feeding Xeroderma on bilateral feet: Lac-Hydrin 12% Lotion continued. GI Prophylaxis: Prevacid via PEG tube DVT Prophylaxis: Sequential compression devices, chemical prophylaxis contraindicated secondary to intracranial hemorrhage Discharge Planning Discharge planning per case management Kayden Kelley Sep 15, 2017 11:41
[2017-09-15 12:00] VITALS: BP 102/51; PULSE 96; RESP 18; TEMP 98.3; O2SAT 95
[2017-09-15] MEDS: HYDROCHLOROTHIAZIDE 12.5 MG CAP PO SCH (13:22)
[2017-09-15 17:36] VITALS: BP 134/83; PULSE 72; RESP 18
[2017-09-15 20:00] VITALS: BP 124/83; PULSE 63; RESP 16; TEMP 96.9; O2SAT 99
[2017-09-16] MEDS: NIFEdipine 20 MG CAP PEG SCH ×4 (00:26→18:29)
[2017-09-16] MEDS: hydrALAZINE HCL 50 MG TAB PEG SCH ×4 (00:26→18:29)
[2017-09-16 08:00] VITALS: BP 115/99; PULSE 66; RESP 15; TEMP 98.3; O2SAT 98
[2017-09-16] MEDS: LANSOPRAZOLE SOLUTAB 30 MG TAB G-TUBE SCH (09:05)
[2017-09-16] MEDS: LACTIC ACID (AMMONIUM LACTATE) 12% LOTION 225 GM BTL TOPICAL SCH ×2 (09:05→21:02)
[2017-09-16] MEDS: HYDROCHLOROTHIAZIDE 12.5 MG CAP PO SCH (09:05)
[2017-09-16] MEDS: SENNOSIDES SYRUP 8.8 MG/5 ML CUP PEG SCH (09:06)
[2017-09-16] MEDS: METOPROLOL TARTRATE 100 MG TAB PEG SCH ×2 (09:06→21:01)
[2017-09-16] MEDS: LISINOPRIL 20 MG TAB PEG SCH ×2 (09:06→21:01)
[2017-09-16] MEDS: NYSTATIN SUSP 500,000 U/5 ML CUP SWISH-SWAL SCH ×4 (09:06→21:01)
--- NOTE | 2017-09-16 09:07 | HHI.PR ---
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 Patient denies any new complaints. No change in clinical status. Awaiting case management for discharge planning. Objective Vitals Vital Signs Date Time Temp Pulse Resp B/P (MAP) Pulse Ox O2 Delivery O2 Flow Rate FiO2 09/16/17 08:00 98.3 66 15 115/99 (104) 98 09/15/17 20:00 96.9 63 16 124/83 (97) 99 09/15/17 17:36 72 18 134/83 (100) 09/15/17 12:00 98.3 96 18 102/51 (68) 95 I/O 09/15/17 09/15/17 09/15/17 09/16/17 09/16/17 09/16/17 07:00 15:00 23:00 07:00 15:00 23:00 Intake Total 160 ml 700 ml 300 ml 690 ml Balance 160 ml 700 ml 300 ml 690 ml Intake Oral 0 ml 0 ml Tube Feeding 480 ml 240 ml 240 ml Tube Irrigant 220 ml 60 ml Other 160 ml 450 ml # Voids 1 2 1 # Bowel Movements 0 0 Objective Remarks GENERAL: Well-developed, well-nourished, in no acute distress. Awake, responds minimally with head nods. Trying to speak HEENT: Head is normocephalic without any lesions or masses noted. Facial features are symmetric. Eyes: Conjunctivae were clear. CARDIAC: Regular rhythm, regular rate. S1/S2 are heard. 2/6 ejection, no gallops or rubs. LUNGS: Clear to auscultation bilaterally. No wheeze, rhonchi or rales. No use of accessory muscles on inspiration or expiration. ABDOMEN: Soft, nontender. Nondistended. Bowel sounds heard in all 4 quadrants. No organomegaly or masses. Negative rebound, negative guarding, PEG tube noted without any signs of infection EXTREMITIES: No edema, pulses are equal bilaterally. No cyanosis or clubbing NEUROLOGY: Patient is moving left upper extremity and able to move left foot. Patient unable to move right upper and lower extremity. Procedures Peg Tube placed 05/08/17 (Dr. De Los Santos) Urinary Catheter: No Vascular Central Line Catheter: No A/P Assessment and Plan Intracranial hemorrhage, 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 Neurosurgery evaluated patient states no surgical intervention Continue PT/OT/ST Consulted as indicated patient is stable to be discharged to rehabilitation facility Case management consulted for inpatient rehabilitation, who indicated patient is homeless, no discharge disposition to inpatient rehabilitation Dysphagia suspect secondary to intracranial bleed, Post PEG placement 05/09/17. Speech therapy indicates patient is nothing by mouth, to continue to follow and advance diet per exam Dietary consulted and made recommendations for bolus feeding Hypertension emergency, continue monitor blood pressure and adjust as needed Nifedipine 40 mg every 6 hours Lisinopril 10 mg twice daily Apresoline 50 mg every 6 hours Catapres TTS 3 patch Metoprolol 100 mg twice daily HCTZ 12.5 mg daily Apresoline, clonidine, Vasotec as needed Hyperglycemia Hemoglobin A1c 6.2 Glucerna 1.5 bolus tube feeding Xeroderma on bilateral feet: Lac-Hydrin 12% Lotion continued. GI Prophylaxis: Prevacid via PEG tube DVT Prophylaxis: Sequential compression devices, chemical prophylaxis contraindicated secondary to intracranial hemorrhage Records were reviewed. No change in current treatment plan. Awaiting case management for discharge planning Discharge Planning Discharge planning per case management Kayden Kelley Sep 16, 2017 09:07
[2017-09-16 13:18] VITALS: BP 126/81; PULSE 57; RESP 14
[2017-09-16 18:26] VITALS: BP 147/93; PULSE 59; RESP 16
[2017-09-16 20:00] VITALS: BP 137/78; PULSE 77; RESP 16; TEMP 98.6; O2SAT 100
[2017-09-17] MEDS: NIFEdipine 20 MG CAP PEG SCH ×5 (00:08→23:43)
[2017-09-17] MEDS: hydrALAZINE HCL 50 MG TAB PEG SCH ×5 (00:08→23:43)
[2017-09-17 00:09] VITALS: BP 128/77; PULSE 75
[2017-09-17 08:00] VITALS: BP 116/75; PULSE 60; RESP 12; TEMP 97.2; O2SAT 98
[2017-09-17] MEDS: LISINOPRIL 20 MG TAB PEG SCH ×2 (08:46→21:27)
[2017-09-17] MEDS: HYDROCHLOROTHIAZIDE 12.5 MG CAP PO SCH (08:46)
[2017-09-17] MEDS: METOPROLOL TARTRATE 100 MG TAB PEG SCH ×2 (08:46→21:26)
[2017-09-17] MEDS: LANSOPRAZOLE SOLUTAB 30 MG TAB G-TUBE SCH (08:46)
[2017-09-17] MEDS: LACTIC ACID (AMMONIUM LACTATE) 12% LOTION 225 GM BTL TOPICAL SCH ×2 (08:46→21:27)
[2017-09-17] MEDS: NYSTATIN SUSP 500,000 U/5 ML CUP SWISH-SWAL SCH ×4 (08:46→21:26)
[2017-09-17] MEDS: SENNOSIDES SYRUP 8.8 MG/5 ML CUP PEG SCH (08:46)
--- NOTE | 2017-09-17 11:11 | HHI.PR ---
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 No change in clinical status. Patient denying indicating new complaints. No acute events overnight. Objective Vitals Vital Signs Date Time Temp Pulse Resp B/P (MAP) Pulse Ox O2 Delivery O2 Flow Rate FiO2 09/17/17 08:00 97.2 60 12 116/75 (89) 98 09/17/17 00:09 75 128/77 (94) 09/16/17 20:00 98.6 77 16 137/78 (97) 100 09/16/17 18:26 59 16 147/93 (111) 09/16/17 13:18 57 14 126/81 (96) I/O 09/16/17 09/16/17 09/16/17 09/17/17 09/17/17 09/17/17 07:00 15:00 23:00 07:00 15:00 23:00 Intake Total 690 ml 1320 ml 650 ml Balance 690 ml 1320 ml 650 ml Intake Oral 0 ml Tube Feeding 240 ml 820 ml 240 ml Tube Irrigant 180 ml 90 ml Other 450 ml 320 ml 320 ml # Voids 1 3 # Bowel Movements 1 Objective Remarks GENERAL: Well-developed, well-nourished, in no acute distress. Awake, responds minimally with head nods. Trying to speak HEENT: Head is normocephalic without any lesions or masses noted. Facial features are symmetric. Eyes: Conjunctivae were clear. CARDIAC: Regular rhythm, regular rate. S1/S2 are heard. 2/6 ejection, no gallops or rubs. LUNGS: Clear to auscultation bilaterally. No wheeze, rhonchi or rales. No use of accessory muscles on inspiration or expiration. ABDOMEN: Soft, nontender. Nondistended. Bowel sounds heard in all 4 quadrants. No organomegaly or masses. Negative rebound, negative guarding, PEG tube noted without any signs of infection EXTREMITIES: No edema, pulses are equal bilaterally. No cyanosis or clubbing NEUROLOGY: Patient is moving left upper extremity and able to move left foot. Patient unable to move right upper and lower extremity. Procedures Peg Tube placed 05/08/17 (Dr. De Los Santos) Urinary Catheter: No Vascular Central Line Catheter: No A/P Assessment and Plan Intracranial hemorrhage, 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 Neurosurgery evaluated patient states no surgical intervention Continue PT/OT/ST Consulted as indicated patient is stable to be discharged to rehabilitation facility Case management consulted for inpatient rehabilitation, who indicated patient is homeless, no discharge disposition to inpatient rehabilitation Dysphagia suspect secondary to intracranial bleed, Post PEG placement 05/09/17. Speech therapy indicates patient is nothing by mouth, to continue to follow and advance diet per exam Dietary consulted and made recommendations for bolus feeding Hypertension emergency, continue monitor blood pressure and adjust as needed Nifedipine 40 mg every 6 hours Lisinopril 10 mg twice daily Apresoline 50 mg every 6 hours Catapres TTS 3 patch Metoprolol 100 mg twice daily HCTZ 12.5 mg daily Apresoline, clonidine, Vasotec as needed Hyperglycemia Hemoglobin A1c 6.2 Glucerna 1.5 bolus tube feeding Xeroderma on bilateral feet: Lac-Hydrin 12% Lotion continued. GI Prophylaxis: Prevacid via PEG tube DVT Prophylaxis: Sequential compression devices, chemical prophylaxis contraindicated secondary to intracranial hemorrhage Records were reviewed. Awaiting case management for discharge planning, No change in current treatment plan. Discharge Planning Discharge planning per case management Kayden Kelley Sep 17, 2017 11:11
[2017-09-17 12:22] VITALS: BP 110/76; PULSE 68
[2017-09-17 17:41] VITALS: BP 128/80; PULSE 78
[2017-09-17 20:00] VITALS: BP 165/105; PULSE 68; RESP 16; TEMP 98.1; O2SAT 100
[2017-09-17 23:41] VITALS: BP 148/96; PULSE 59
[2017-09-18] VITALS: BP 111/81; PULSE 71; RESP 16; TEMP 99; O2SAT 97
[2017-09-18] MEDS: hydrALAZINE HCL 50 MG TAB PEG SCH ×3 (05:41→18:00)
[2017-09-18] MEDS: NIFEdipine 20 MG CAP PEG SCH ×3 (05:42→19:52)
[2017-09-18 08:00] VITALS: BP 113/72; PULSE 73; RESP 18; TEMP 98.8; O2SAT 100
--- NOTE | 2017-09-18 08:22 | HHI.PR ---
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 Patient not indicate any new complaints. No acute events overnight. No change in clinical status. Objective Vitals Vital Signs Date Time Temp Pulse Resp B/P (MAP) Pulse Ox O2 Delivery O2 Flow Rate FiO2 09/18/17 00:00 99.0 71 16 111/81 (91) 97 09/17/17 23:41 59 148/96 (113) 09/17/17 20:00 98.1 68 16 165/105 (125) 100 09/17/17 17:41 78 128/80 (96) 09/17/17 12:22 68 110/76 (87) I/O 09/17/17 09/17/17 09/17/17 09/18/17 09/18/17 09/18/17 07:00 15:00 23:00 07:00 15:00 23:00 Intake Total 650 ml 770 ml 780 ml Balance 650 ml 770 ml 780 ml Intake Oral 0 ml Tube Feeding 240 ml 480 ml 240 ml Tube Irrigant 90 ml 220 ml Other 320 ml 290 ml 320 ml # Voids 3 1 1 # Bowel Movements 1 0 1 Objective Remarks GENERAL: Well-developed, well-nourished, in no acute distress. Awake, responds minimally with head nods. Trying to speak HEENT: Head is normocephalic without any lesions or masses noted. Facial features are symmetric. Eyes: Conjunctivae were clear. CARDIAC: Regular rhythm, regular rate. S1/S2 are heard. 2/6 ejection, no gallops or rubs. LUNGS: Clear to auscultation bilaterally. No wheeze, rhonchi or rales. No use of accessory muscles on inspiration or expiration. ABDOMEN: Soft, nontender. Nondistended. Bowel sounds heard in all 4 quadrants. No organomegaly or masses. Negative rebound, negative guarding, PEG tube noted without any signs of infection EXTREMITIES: No edema, pulses are equal bilaterally. No cyanosis or clubbing NEUROLOGY: Patient is moving left upper extremity and able to move left foot. Patient unable to move right upper and lower extremity. Procedures Peg Tube placed 05/08/17 (Dr. De Los Santos) Urinary Catheter: No Vascular Central Line Catheter: No A/P Assessment and Plan Intracranial hemorrhage, 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 Neurosurgery evaluated patient states no surgical intervention Continue PT/OT/ST Consulted as indicated patient is stable to be discharged to rehabilitation facility Case management consulted for inpatient rehabilitation, who indicated patient is homeless, no discharge disposition to inpatient rehabilitation Dysphagia suspect secondary to intracranial bleed, Post PEG placement 05/09/17. Speech therapy indicates patient is nothing by mouth, to continue to follow and advance diet per exam Dietary consulted and made recommendations for bolus feeding Hypertension emergency, continue monitor blood pressure and adjust as needed Nifedipine 40 mg every 6 hours Lisinopril 10 mg twice daily Apresoline 50 mg every 6 hours Catapres TTS 3 patch Metoprolol 100 mg twice daily HCTZ 12.5 mg daily Apresoline, clonidine, Vasotec as needed Hyperglycemia Hemoglobin A1c 6.2 Glucerna 1.5 bolus tube feeding Xeroderma on bilateral feet: Lac-Hydrin 12% Lotion continued. GI Prophylaxis: Prevacid via PEG tube DVT Prophylaxis: Sequential compression devices, chemical prophylaxis contraindicated secondary to intracranial hemorrhage Records were reviewed. No change in current treatment plan. Awaiting case management for discharge planning, Discharge Planning Discharge planning per case management Kayden Kelley Sep 18, 2017 08:22
[2017-09-18] MEDS: LACTIC ACID (AMMONIUM LACTATE) 12% LOTION 225 GM BTL TOPICAL SCH ×2 (10:11→22:36)
[2017-09-18] MEDS: HYDROCHLOROTHIAZIDE 12.5 MG CAP PO SCH (10:12)
[2017-09-18] MEDS: SENNOSIDES SYRUP 8.8 MG/5 ML CUP PEG SCH (10:12)
[2017-09-18] MEDS: METOPROLOL TARTRATE 100 MG TAB PEG SCH ×2 (10:12→22:35)
[2017-09-18] MEDS: LISINOPRIL 20 MG TAB PEG SCH ×2 (10:13→22:36)
[2017-09-18] MEDS: NYSTATIN SUSP 500,000 U/5 ML CUP SWISH-SWAL SCH ×4 (10:13→22:35)
[2017-09-18] MEDS: LANSOPRAZOLE SOLUTAB 30 MG TAB G-TUBE SCH (10:13)
[2017-09-18 20:00] VITALS: BP 173/103; PULSE 107; RESP 18; TEMP 98.9; O2SAT 92
[2017-09-19] MEDS: hydrALAZINE HCL 50 MG TAB PEG SCH ×4 (00:48→17:01)
[2017-09-19] MEDS: NIFEdipine 20 MG CAP PEG SCH ×4 (00:48→17:01)
[2017-09-19 09:50] VITALS: BP 118/77; PULSE 69; RESP 16; TEMP 96; O2SAT 98
[2017-09-19] MEDS: SENNOSIDES SYRUP 8.8 MG/5 ML CUP PEG SCH (11:31)
[2017-09-19] MEDS: METOPROLOL TARTRATE 100 MG TAB PEG SCH ×2 (11:32→20:41)
[2017-09-19] MEDS: LISINOPRIL 20 MG TAB PEG SCH ×2 (11:32→20:43)
[2017-09-19] MEDS: hydrALAZINE HCL 25 MG TAB PEG PRN (11:32)
[2017-09-19] MEDS: NYSTATIN SUSP 500,000 U/5 ML CUP SWISH-SWAL SCH ×4 (11:33→20:41)
[2017-09-19] MEDS: LANSOPRAZOLE SOLUTAB 30 MG TAB G-TUBE SCH (11:33)
[2017-09-19] MEDS: LACTIC ACID (AMMONIUM LACTATE) 12% LOTION 225 GM BTL TOPICAL SCH ×2 (11:34→20:44)
[2017-09-19] MEDS: HYDROCHLOROTHIAZIDE 12.5 MG CAP PO SCH (11:35)
--- NOTE | 2017-09-19 11:59 | HHI.PR ---
Subjective Remarks Follow-up on hemorrhagic CVA. Patient seen and examined. Lying in bed sleeping, awakens to voice. Denies any pain. No reports of any acute changes overnight. No change in clinical status. Afebrile. VSS. Tolerating TF. Objective Vitals Vital Signs Date Time Temp Pulse Resp B/P (MAP) Pulse Ox O2 Delivery O2 Flow Rate FiO2 09/19/17 09:50 96.0 69 16 118/77 (91) 98 09/18/17 20:00 98.9 107 18 173/103 (126) 92 I/O 09/18/17 09/18/17 09/18/17 09/19/17 09/19/17 09/19/17 07:00 15:00 23:00 07:00 15:00 23:00 Intake Total 780 ml Balance 780 ml Intake Oral 0 ml Tube Feeding 240 ml Tube Irrigant 220 ml Other 320 ml # Voids 1 2 4 # Bowel Movements 1 0 Imaging Last Impressions Upper Extremity Ultrasound 08/03/17 0000 Signed Impressions: Service Date/Time: July 04:13 - CONCLUSION: Normal examination. Adi Quarles MD Chest X-Ray 05/31/17 0000 Signed Impressions: Service Date/Time: Wednesday, May 31, 2017 13:13 - CONCLUSION: 1. Improved right lower lung zone aeration with minimal residual airspace disease. Pipe Smart MD Head CT 04/25/17 0000 Signed Impressions: Service Date/Time: Tuesday, April 25, 2017 18:02 - CONCLUSION: 1. Evolving left thalamic hematoma. No new hemorrhage. Adi Quarles MD Abdomen X-Ray 04/12/17 1538 Signed Impressions: Service Date/Time: Wednesday, April 12, 2017 17:29 - CONCLUSION: Nonobstructive bowel gas pattern. Suresh Zapata MD Neck CTA 04/10/17 0000 Signed Impressions: Service Date/Time: Monday, April 10, 2017 22:28 - CONCLUSION: The internal carotid arteries are normal bilaterally. No significant atherosclerotic disease is noted. Eliud Du MD Head CTA 04/10/17 0000 Signed Impressions: Service Date/Time: Monday, April 10, 2017 22:50 - CONCLUSION: Mild dilatation of the basilar tip without discrete aneurysm. Some narrowing of the left middle cerebral branch after the bifurcation. Prominent left thalamic hemorrhage. Eliud Du MD Objective Remarks GENERAL: Well-developed, well-nourished, in no acute distress. Awake, responds minimally with head nods, tracking with eyes. Expressive aphasic, attempts to speak intermittently. HEENT: Head is normocephalic without any lesions or masses noted. Facial features are symmetric. Eyes: Conjunctivae were clear. CARDIAC: Regular rhythm, regular rate. S1/S2 are heard. 2/6 ejection, no gallops or rubs. LUNGS: Clear to auscultation bilaterally. No wheeze, rhonchi or rales. No use of accessory muscles on inspiration or expiration. ABDOMEN: Soft, nontender. Nondistended. Bowel sounds heard in all 4 quadrants. No organomegaly or masses. Negative guarding. PEG tube noted without any signs of infection, skin c/d/i, dressing intact. No erythema. EXTREMITIES: No edema, pulses are equal bilaterally. No cyanosis or clubbing NEUROLOGY: Patient is moving left upper extremity and able to move left foot. Patient unable to move right upper and lower extremity. Procedures Peg Tube placed 05/08/17 (Dr. De Los Santos) A/P Assessment and Plan Intracranial hemorrhage, 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 Neurosurgery evaluated patient states no surgical intervention Continue PT/OT/ST Case management consulted for inpatient rehabilitation, who indicated patient is homeless, no discharge disposition to inpatient rehabilitation. Dysphagia suspect secondary to intracranial bleed Post PEG placement 05/09/17. Speech therapy indicates patient is nothing by mouth, to continue to follow and advance diet per exam Dietary consulted and made recommendations for bolus feeding. Hypertension emergency, nursing staff has been holding blood pressure medication due to parameters of low blood pressure Nifedipine 40 mg every 6 hours Lisinopril 10 mg twice daily Apresoline 50 mg every 6 hours Catapres TTS 3 patch Metoprolol 100 mg twice daily HCTZ 12.5 mg daily Apresoline, clonidine as needed Hyperglycemia Hemoglobin A1c 6.2 Glucerna 1.5 bolus tube feeding Xeroderma on bilateral feet: Lac-Hydrin 12% Lotion continued. GI Prophylaxis: Prevacid via PEG tube DVT Prophylaxis: SCDs. Chemical prophylaxis contraindicated secondary to intracranial hemorrhage. Medical records reviewed and no change in treatment plan. Continue to monitor clinically. Discharge Planning Patient is stable to be discharged to rehabilitation facility. Case management assisting. Veena Calvillo Sep 19, 2017 11:59
[2017-09-19] MEDS: REMOVE OLD CATAPRES (CLONIDINE) PATCH T-DERMAL SCH (15:00)
[2017-09-19] MEDS: cloNIDine HCL 0.3 MG/24 HR PATCH T-DERMAL SCH (16:11)
[2017-09-19 16:54] VITALS: BP 107/59; PULSE 84; RESP 16; TEMP 97.2; O2SAT 95
[2017-09-19 20:00] VITALS: BP 145/103; PULSE 84; RESP 20; TEMP 97.7; O2SAT 99
[2017-09-20] VITALS: BP 125/84; PULSE 56; RESP 20; TEMP 97.2; O2SAT 99
[2017-09-20] MEDS: NIFEdipine 20 MG CAP PEG SCH ×4 (00:32→16:32)
[2017-09-20] MEDS: hydrALAZINE HCL 50 MG TAB PEG SCH ×4 (00:41→16:32)
[2017-09-20 08:01] VITALS: BP 138/80; PULSE 77; RESP 18; TEMP 98; O2SAT 95
[2017-09-20] MEDS: LACTIC ACID (AMMONIUM LACTATE) 12% LOTION 225 GM BTL TOPICAL SCH ×2 (09:00→20:39)
[2017-09-20] MEDS: HYDROCHLOROTHIAZIDE 12.5 MG CAP PO SCH (09:00)
[2017-09-20] MEDS: METOPROLOL TARTRATE 100 MG TAB PEG SCH ×2 (09:38→20:33)
[2017-09-20] MEDS: NYSTATIN SUSP 500,000 U/5 ML CUP SWISH-SWAL SCH ×4 (09:39→20:33)
[2017-09-20] MEDS: LISINOPRIL 20 MG TAB PEG SCH ×2 (09:39→20:33)
[2017-09-20] MEDS: SENNOSIDES SYRUP 8.8 MG/5 ML CUP PEG SCH (09:39)
[2017-09-20] MEDS: LANSOPRAZOLE SOLUTAB 30 MG TAB G-TUBE SCH (09:39)
--- NOTE | 2017-09-20 15:50 | HHI.PR ---
Subjective Remarks Follow-up on hemorrhagic CVA. Patient seen and examined. Lying in bed comfortably. Awake and alert. No change in clinical condition. No reports of any acute events. VSS Objective Vitals Vital Signs Date Time Temp Pulse Resp B/P (MAP) Pulse Ox O2 Delivery O2 Flow Rate FiO2 09/20/17 08:01 98.0 77 18 138/80 (99) 95 09/20/17 00:00 97.2 56 20 125/84 (98) 99 09/19/17 20:00 97.7 84 20 145/103 (117) 99 09/19/17 16:54 97.2 84 16 107/59 (75) 95 I/O 09/19/17 09/19/17 09/19/17 09/20/17 09/20/17 09/20/17 07:00 15:00 23:00 07:00 15:00 23:00 Intake Total 1140 ml 840 ml Balance 1140 ml 840 ml Intake Oral 0 ml Tube Feeding 720 ml 240 ml Tube Irrigant 100 ml 600 ml Other 320 ml # Voids 4 6 # Bowel Movements 0 1 Imaging Last Impressions Upper Extremity Ultrasound 08/03/17 0000 Signed Impressions: Service Date/Time: July 04:13 - CONCLUSION: Normal examination. Adi Quarles MD Chest X-Ray 05/31/17 0000 Signed Impressions: Service Date/Time: Wednesday, May 31, 2017 13:13 - CONCLUSION: 1. Improved right lower lung zone aeration with minimal residual airspace disease. Pipe Smart MD Head CT 04/25/17 0000 Signed Impressions: Service Date/Time: Tuesday, April 25, 2017 18:02 - CONCLUSION: 1. Evolving left thalamic hematoma. No new hemorrhage. Adi Quarles MD Abdomen X-Ray 04/12/17 1538 Signed Impressions: Service Date/Time: Wednesday, April 12, 2017 17:29 - CONCLUSION: Nonobstructive bowel gas pattern. Suresh Zapata MD Neck CTA 04/10/17 0000 Signed Impressions: Service Date/Time: Monday, April 10, 2017 22:28 - CONCLUSION: The internal carotid arteries are normal bilaterally. No significant atherosclerotic disease is noted. Eliud Du MD Head CTA 04/10/17 0000 Signed Impressions: Service Date/Time: Monday, April 10, 2017 22:50 - CONCLUSION: Mild dilatation of the basilar tip without discrete aneurysm. Some narrowing of the left middle cerebral branch after the bifurcation. Prominent left thalamic hemorrhage. Eliud Du MD Objective Remarks GENERAL: Well-developed, well-nourished, in no acute distress. Awake, responds minimally with head nods, tracking with eyes. Expressive aphasic, attempts to speak intermittently. HEENT: Head is normocephalic without any lesions or masses noted. Facial features are symmetric. Eyes: Conjunctivae were clear. CARDIAC: Regular rhythm, regular rate. S1/S2 are heard. 2/6 ejection, no gallops or rubs. LUNGS: Clear to auscultation bilaterally. No wheeze, rhonchi or rales. No use of accessory muscles on inspiration or expiration. ABDOMEN: Soft, nontender. Nondistended. Bowel sounds heard in all 4 quadrants. No organomegaly or masses. Negative guarding. PEG tube noted without any signs of infection, skin c/d/i, dressing intact. No erythema. EXTREMITIES: No edema, pulses are equal bilaterally. No cyanosis or clubbing NEUROLOGY: Patient is moving left upper extremity and able to move left foot. Patient unable to move right upper and lower extremity. Procedures Peg Tube placed 05/08/17 (Dr. De Los Santos) A/P Assessment and Plan Intracranial hemorrhage, 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 Neurosurgery evaluated patient states no surgical intervention Continue PT/OT/ST Case management consulted for inpatient rehabilitation, who indicated patient is homeless, no discharge disposition to inpatient rehabilitation. Dysphagia suspect secondary to intracranial bleed Post PEG placement 05/09/17. Speech therapy indicates patient is nothing by mouth, to continue to follow and advance diet per exam Dietary consulted and made recommendations for bolus feeding. Hypertension emergency, nursing staff has been holding blood pressure medication due to parameters of low blood pressure Nifedipine 40 mg every 6 hours Lisinopril 10 mg twice daily Apresoline 50 mg every 6 hours Catapres TTS 3 patch Metoprolol 100 mg twice daily HCTZ 12.5 mg daily Apresoline, clonidine as needed Hyperglycemia Hemoglobin A1c 6.2 Glucerna 1.5 bolus tube feeding Xeroderma on bilateral feet: Lac-Hydrin 12% Lotion continued. GI Prophylaxis: Prevacid via PEG tube DVT Prophylaxis: SCDs. Chemical prophylaxis contraindicated secondary to intracranial hemorrhage. Medical records reviewed and no change in treatment plan. Continue to monitor clinically. Discharge Planning Patient is stable to be discharged to rehabilitation facility. Case management assisting. Veena Calvillo Sep 20, 2017 15:50
[2017-09-20 20:00] VITALS: BP 180/110; PULSE 95; RESP 20; TEMP 99.5; O2SAT 97
[2017-09-21] VITALS: BP 187/119; PULSE 75; RESP 16; TEMP 97.9; O2SAT 100
[2017-09-21] MEDS: NIFEdipine 20 MG CAP PEG SCH ×5 (00:56→23:08)
[2017-09-21] MEDS: hydrALAZINE HCL 50 MG TAB PEG SCH ×5 (00:56→23:08)
[2017-09-21 08:00] VITALS: BP 143/95; PULSE 96; RESP 18; TEMP 98.3; O2SAT 96
[2017-09-21] MEDS: SENNOSIDES SYRUP 8.8 MG/5 ML CUP PEG SCH (08:19)
[2017-09-21] MEDS: NYSTATIN SUSP 500,000 U/5 ML CUP SWISH-SWAL SCH ×4 (08:19→23:08)
[2017-09-21] MEDS: LANSOPRAZOLE SOLUTAB 30 MG TAB G-TUBE SCH (08:19)
[2017-09-21] MEDS: METOPROLOL TARTRATE 100 MG TAB PEG SCH ×2 (08:20→23:08)
[2017-09-21] MEDS: LISINOPRIL 20 MG TAB PEG SCH ×2 (08:20→23:09)
[2017-09-21] MEDS: HYDROCHLOROTHIAZIDE 12.5 MG CAP PO SCH (08:21)
[2017-09-21] MEDS: LACTIC ACID (AMMONIUM LACTATE) 12% LOTION 225 GM BTL TOPICAL SCH ×2 (08:22→23:10)
--- NOTE | 2017-09-21 11:50 | HHI.PR ---
Subjective Remarks Follow-up on hemorrhagic CVA. Patient seen and examined. Lying in bed sleeping, awakens to voice. Continued expressive aphasia. Moves her left upper and lower extremity, right upper and lower extremity flaccid. Denies any pain. No change in clinical condition. Objective Vitals Vital Signs Date Time Temp Pulse Resp B/P (MAP) Pulse Ox O2 Delivery O2 Flow Rate FiO2 09/21/17 08:00 98.3 96 18 143/95 (111) 96 Automatic Cuff 09/21/17 00:00 97.9 75 16 187/119 (141) 100 09/20/17 20:00 99.5 95 20 180/110 (133) 97 I/O 09/20/17 09/20/17 09/20/17 09/21/17 09/21/17 09/21/17 07:00 15:00 23:00 07:00 15:00 23:00 Intake Total 840 ml Balance 840 ml Tube Feeding 240 ml Tube Irrigant 600 ml # Voids 5 1 # Bowel Movements 1 1 Imaging Last Impressions Upper Extremity Ultrasound 08/03/17 0000 Signed Impressions: Service Date/Time: July 04:13 - CONCLUSION: Normal examination. Adi Quarles MD Chest X-Ray 05/31/17 0000 Signed Impressions: Service Date/Time: Wednesday, May 31, 2017 13:13 - CONCLUSION: 1. Improved right lower lung zone aeration with minimal residual airspace disease. Pipe Smart MD Head CT 04/25/17 0000 Signed Impressions: Service Date/Time: Tuesday, April 25, 2017 18:02 - CONCLUSION: 1. Evolving left thalamic hematoma. No new hemorrhage. Adi Quarles MD Abdomen X-Ray 04/12/17 1538 Signed Impressions: Service Date/Time: Wednesday, April 12, 2017 17:29 - CONCLUSION: Nonobstructive bowel gas pattern. Suresh Zapata MD Neck CTA 04/10/17 0000 Signed Impressions: Service Date/Time: Monday, April 10, 2017 22:28 - CONCLUSION: The internal carotid arteries are normal bilaterally. No significant atherosclerotic disease is noted. Eliud Du MD Head CTA 04/10/17 0000 Signed Impressions: Service Date/Time: Monday, April 10, 2017 22:50 - CONCLUSION: Mild dilatation of the basilar tip without discrete aneurysm. Some narrowing of the left middle cerebral branch after the bifurcation. Prominent left thalamic hemorrhage. Eliud Du MD Objective Remarks GENERAL: Well-developed, well-nourished, in no acute distress. Awake, responds minimally with head nods, tracking with eyes. Expressive aphasic, attempts to speak intermittently. HEENT: Head is normocephalic without any lesions or masses noted. Facial features are symmetric. Eyes: Conjunctivae were clear. CARDIAC: Regular rhythm, regular rate. S1/S2 are heard. 2/6 ejection, no gallops or rubs. LUNGS: Clear to auscultation bilaterally. No wheeze, rhonchi or rales. No use of accessory muscles on inspiration or expiration. ABDOMEN: Soft, nontender. Nondistended. Bowel sounds heard in all 4 quadrants. No organomegaly or masses. Negative guarding. PEG tube noted without any signs of infection, skin c/d/i, dressing intact. No erythema. EXTREMITIES: No edema, pulses are equal bilaterally. No cyanosis or clubbing NEUROLOGY: Patient is moving left upper extremity and able to move left foot. Patient unable to move right upper and lower extremity. Procedures Peg Tube placed 05/08/17 (Dr. De Los Santos) A/P Assessment and Plan Intracranial hemorrhage, 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 Neurosurgery evaluated patient states no surgical intervention Continue PT/OT/ST Case management consulted for inpatient rehabilitation, who indicated patient is homeless, no discharge disposition to inpatient rehabilitation. Dysphagia suspect secondary to intracranial bleed Post PEG placement 05/09/17. Speech therapy indicates patient is nothing by mouth, to continue to follow and advance diet per exam Dietary consulted and made recommendations for bolus feeding. Hypertension emergency, nursing staff has been holding blood pressure medication due to parameters of low blood pressure Nifedipine 40 mg every 6 hours Lisinopril 10 mg twice daily Apresoline 50 mg every 6 hours Catapres TTS 3 patch Metoprolol 100 mg twice daily HCTZ 12.5 mg daily Apresoline, clonidine as needed Hyperglycemia Hemoglobin A1c 6.2 Glucerna 1.5 bolus tube feeding Xeroderma on bilateral feet: Lac-Hydrin 12% Lotion continued. GI Prophylaxis: Prevacid via PEG tube DVT Prophylaxis: SCDs. Chemical prophylaxis contraindicated secondary to intracranial hemorrhage. Medical records reviewed and no change in treatment plan. Continue to monitor clinically. Discharge Planning Patient is stable to be discharged to rehabilitation facility. Case management assisting. Veena Calvillo Sep 21, 2017 11:50
[2017-09-21 20:00] VITALS: BP 134/89; PULSE 77; RESP 16; TEMP 98; O2SAT 98
[2017-09-22] VITALS: BP 144/92; PULSE 77; RESP 16; TEMP 98.4; O2SAT 98
[2017-09-22] MEDS: hydrALAZINE HCL 50 MG TAB PEG SCH ×4 (05:14→23:59)
[2017-09-22] MEDS: NIFEdipine 20 MG CAP PEG SCH ×4 (05:14→23:59)
[2017-09-22 08:00] VITALS: BP 126/78; PULSE 84; RESP 18; TEMP 97.6; O2SAT 95
[2017-09-22] MEDS: LACTIC ACID (AMMONIUM LACTATE) 12% LOTION 225 GM BTL TOPICAL SCH ×2 (08:47→22:00)
[2017-09-22] MEDS: LANSOPRAZOLE SOLUTAB 30 MG TAB G-TUBE SCH (08:47)
[2017-09-22] MEDS: METOPROLOL TARTRATE 100 MG TAB PEG SCH ×2 (08:47→22:00)
[2017-09-22] MEDS: LISINOPRIL 20 MG TAB PEG SCH ×2 (08:47→22:00)
[2017-09-22] MEDS: HYDROCHLOROTHIAZIDE 12.5 MG CAP PO SCH (08:47)
[2017-09-22] MEDS: SENNOSIDES SYRUP 8.8 MG/5 ML CUP PEG SCH (08:47)
[2017-09-22] MEDS: NYSTATIN SUSP 500,000 U/5 ML CUP SWISH-SWAL SCH ×4 (08:47→22:00)
--- NOTE | 2017-09-22 09:47 | HHI.PR ---
Subjective Remarks Follow-up on hemorrhagic CVA. Patient seen and examined. Lying in bed comfortably. RN at bedside. No new changes to clinical condition. No acute events overnight. Patient tolerating TF. Continue expressive aphasia. Positive BM. Objective Vitals Vital Signs Date Time Temp Pulse Resp B/P (MAP) Pulse Ox O2 Delivery O2 Flow Rate FiO2 09/22/17 08:00 97.6 84 18 126/78 (94) 95 09/22/17 00:00 98.4 77 16 144/92 (109) 98 09/21/17 20:00 98.0 77 16 134/89 (104) 98 I/O 09/21/17 09/21/17 09/21/17 09/22/17 09/22/17 09/22/17 07:00 15:00 23:00 07:00 15:00 23:00 Intake Total 0 ml 400 ml Balance 0 ml 400 ml Intake Oral 0 ml Tube Feeding 240 ml Other 160 ml # Voids 1 2 1 1 # Bowel Movements 1 1 1 0 Imaging Last Impressions Upper Extremity Ultrasound 08/03/17 0000 Signed Impressions: Service Date/Time: July 04:13 - CONCLUSION: Normal examination. Adi Quarles MD Chest X-Ray 05/31/17 0000 Signed Impressions: Service Date/Time: Wednesday, May 31, 2017 13:13 - CONCLUSION: 1. Improved right lower lung zone aeration with minimal residual airspace disease. Pipe Smart MD Head CT 04/25/17 0000 Signed Impressions: Service Date/Time: Tuesday, April 25, 2017 18:02 - CONCLUSION: 1. Evolving left thalamic hematoma. No new hemorrhage. Adi Quarles MD Abdomen X-Ray 04/12/17 1538 Signed Impressions: Service Date/Time: Wednesday, April 12, 2017 17:29 - CONCLUSION: Nonobstructive bowel gas pattern. Suresh Zapata MD Neck CTA 04/10/17 0000 Signed Impressions: Service Date/Time: Monday, April 10, 2017 22:28 - CONCLUSION: The internal carotid arteries are normal bilaterally. No significant atherosclerotic disease is noted. Eliud Du MD Head CTA 04/10/17 0000 Signed Impressions: Service Date/Time: Monday, April 10, 2017 22:50 - CONCLUSION: Mild dilatation of the basilar tip without discrete aneurysm. Some narrowing of the left middle cerebral branch after the bifurcation. Prominent left thalamic hemorrhage. Eliud Du MD Objective Remarks GENERAL: Well-developed, well-nourished, in no acute distress. Awake, responds minimally with head nods, tracking with eyes. Expressive aphasic, attempts to speak intermittently. HEENT: Head is normocephalic without any lesions or masses noted. Facial features are symmetric. Eyes: Conjunctivae were clear. CARDIAC: Regular rhythm, regular rate. S1/S2 are heard. 2/6 ejection, no gallops or rubs. LUNGS: Clear to auscultation bilaterally. No wheeze, rhonchi or rales. No use of accessory muscles on inspiration or expiration. ABDOMEN: Soft, nontender. Nondistended. Bowel sounds heard in all 4 quadrants. No organomegaly or masses. Negative guarding. PEG tube noted without any signs of infection, skin c/d/i, dressing intact. No erythema. EXTREMITIES: No edema, pulses are equal bilaterally. No cyanosis or clubbing NEUROLOGY: Patient is moving left upper extremity and able to move left foot. Patient unable to move right upper and lower extremity. Procedures Peg Tube placed 05/08/17 (Dr. De Los Santos) A/P Assessment and Plan Intracranial hemorrhage, 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 Neurosurgery evaluated patient states no surgical intervention Continue PT/OT/ST Case management consulted for inpatient rehabilitation, who indicated patient is homeless, no discharge disposition to inpatient rehabilitation. Dysphagia suspect secondary to intracranial bleed Post PEG placement 05/09/17. Speech therapy indicates patient is nothing by mouth, to continue to follow and advance diet per exam Dietary consulted and made recommendations for bolus feeding. Hypertension emergency, nursing staff has been holding blood pressure medication due to parameters of low blood pressure Nifedipine 40 mg every 6 hours Lisinopril 10 mg twice daily Apresoline 50 mg every 6 hours Catapres TTS 3 patch Metoprolol 100 mg twice daily HCTZ 12.5 mg daily Apresoline, clonidine as needed Hyperglycemia Hemoglobin A1c 6.2 Glucerna 1.5 bolus tube feeding Xeroderma on bilateral feet: Lac-Hydrin 12% Lotion continued. GI Prophylaxis: Prevacid via PEG tube DVT Prophylaxis: SCDs. Chemical prophylaxis contraindicated secondary to intracranial hemorrhage. Medical records reviewed and no change in treatment plan. Continue to monitor clinically. Discharge Planning Patient is stable to be discharged to rehabilitation facility. Case management assisting. Veena Calvillo Sep 22, 2017 09:47
[2017-09-22 11:59] VITALS: BP 111/70; PULSE 72
[2017-09-22 16:00] VITALS: BP 129/78; PULSE 68; RESP 18; TEMP 97.3; O2SAT 98
[2017-09-22 20:00] VITALS: BP 141/90; PULSE 75; RESP 20; TEMP 98.6; O2SAT 98
[2017-09-23] MEDS: hydrALAZINE HCL 50 MG TAB PEG SCH ×3 (05:54→17:47)
[2017-09-23] MEDS: NIFEdipine 20 MG CAP PEG SCH ×3 (05:54→17:47)
[2017-09-23 07:30] VITALS: BP 143/87; PULSE 86; RESP 20; TEMP 96.9; O2SAT 99
[2017-09-23] MEDS: HYDROCHLOROTHIAZIDE 12.5 MG CAP PO SCH (08:21)
[2017-09-23] MEDS: LANSOPRAZOLE SOLUTAB 30 MG TAB G-TUBE SCH (08:21)
[2017-09-23] MEDS: METOPROLOL TARTRATE 100 MG TAB PEG SCH ×2 (08:22→21:02)
[2017-09-23] MEDS: LACTIC ACID (AMMONIUM LACTATE) 12% LOTION 225 GM BTL TOPICAL SCH ×2 (08:23→21:00)
[2017-09-23] MEDS: LISINOPRIL 20 MG TAB PEG SCH ×2 (08:23→21:02)
[2017-09-23] MEDS: SENNOSIDES SYRUP 8.8 MG/5 ML CUP PEG SCH (08:23)
[2017-09-23] MEDS: NYSTATIN SUSP 500,000 U/5 ML CUP SWISH-SWAL SCH ×4 (08:23→21:03)
--- NOTE | 2017-09-23 14:57 | HHI.PR ---
Subjective Remarks Follow-up on hemorrhagic CVA. Patient seen and examined. Lying in bed comfortably, son at bedside. Patient tearful today. Denies any pain or discomfort. Follows commands. No change in patient condition. Objective Vitals Vital Signs Date Time Temp Pulse Resp B/P (MAP) Pulse Ox O2 Delivery O2 Flow Rate FiO2 09/23/17 07:30 96.9 86 20 143/87 (105) 99 09/22/17 20:00 98.6 75 20 141/90 (107) 98 09/22/17 16:00 97.3 68 18 129/78 (95) 98 I/O 09/22/17 09/22/17 09/22/17 09/23/17 09/23/17 09/23/17 07:00 15:00 23:00 07:00 15:00 23:00 Intake Total 400 ml 760 ml 400 ml Balance 400 ml 760 ml 400 ml Tube Feeding 240 ml 480 ml 240 ml Other 160 ml 280 ml 160 ml # Voids 1 1 2 # Bowel Movements 0 0 Imaging Last Impressions Upper Extremity Ultrasound 08/03/17 0000 Signed Impressions: Service Date/Time: July 04:13 - CONCLUSION: Normal examination. Adi Quarles MD Chest X-Ray 05/31/17 0000 Signed Impressions: Service Date/Time: Wednesday, May 31, 2017 13:13 - CONCLUSION: 1. Improved right lower lung zone aeration with minimal residual airspace disease. Pipe Smart MD Head CT 04/25/17 0000 Signed Impressions: Service Date/Time: Tuesday, April 25, 2017 18:02 - CONCLUSION: 1. Evolving left thalamic hematoma. No new hemorrhage. Adi Quarles MD Abdomen X-Ray 04/12/17 1538 Signed Impressions: Service Date/Time: Wednesday, April 12, 2017 17:29 - CONCLUSION: Nonobstructive bowel gas pattern. Suresh Zapata MD Neck CTA 04/10/17 0000 Signed Impressions: Service Date/Time: Monday, April 10, 2017 22:28 - CONCLUSION: The internal carotid arteries are normal bilaterally. No significant atherosclerotic disease is noted. Eliud Du MD Head CTA 04/10/17 0000 Signed Impressions: Service Date/Time: Monday, April 10, 2017 22:50 - CONCLUSION: Mild dilatation of the basilar tip without discrete aneurysm. Some narrowing of the left middle cerebral branch after the bifurcation. Prominent left thalamic hemorrhage. Eliud Du MD Objective Remarks GENERAL: Well-developed, well-nourished, in no acute distress. Awake, responds minimally with head nods, tracking with eyes. Expressive aphasic, attempts to speak intermittently. HEENT: Head is normocephalic without any lesions or masses noted. Facial features are symmetric. Eyes: Conjunctivae were clear. CARDIAC: Regular rhythm, regular rate. S1/S2 are heard. 2/6 ejection, no gallops or rubs. LUNGS: Clear to auscultation bilaterally. No wheeze, rhonchi or rales. No use of accessory muscles on inspiration or expiration. ABDOMEN: Soft, nontender. Nondistended. Bowel sounds heard in all 4 quadrants. No organomegaly or masses. Negative guarding. PEG tube noted without any signs of infection, skin c/d/i, dressing intact. No erythema. EXTREMITIES: No edema, pulses are equal bilaterally. No cyanosis or clubbing NEUROLOGY: Patient is moving left upper extremity and able to move left foot. Patient unable to move right upper and lower extremity. Procedures Peg Tube placed 05/08/17 (Dr. De Los Santos) A/P Assessment and Plan Intracranial hemorrhage, 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 Neurosurgery evaluated patient states no surgical intervention Continue PT/OT/ST Case management consulted for inpatient rehabilitation, who indicated patient is homeless, no discharge disposition to inpatient rehabilitation. Dysphagia suspect secondary to intracranial bleed Post PEG placement 05/09/17. Speech therapy indicates patient is nothing by mouth, to continue to follow and advance diet per exam Dietary consulted and made recommendations for bolus feeding. Hypertension emergency, nursing staff has been holding blood pressure medication due to parameters of low blood pressure Nifedipine 40 mg every 6 hours Lisinopril 10 mg twice daily Apresoline 50 mg every 6 hours Catapres TTS 3 patch Metoprolol 100 mg twice daily HCTZ 12.5 mg daily Apresoline, clonidine as needed Hyperglycemia Hemoglobin A1c 6.2 Glucerna 1.5 bolus tube feeding Xeroderma on bilateral feet: Lac-Hydrin 12% Lotion continued. GI Prophylaxis: Prevacid via PEG tube DVT Prophylaxis: SCDs. Chemical prophylaxis contraindicated secondary to intracranial hemorrhage. Medical records reviewed and no change in treatment plan. Continue to monitor clinically. Discharge Planning Patient is stable to be discharged to rehabilitation facility. Case management assisting. Veena Calvillo Sep 23, 2017 14:57
[2017-09-23 20:41] VITALS: BP 126/78; PULSE 84; RESP 16; TEMP 98; O2SAT 94
[2017-09-24] MEDS: hydrALAZINE HCL 50 MG TAB PEG SCH ×4 (00:23→17:32)
[2017-09-24] MEDS: NIFEdipine 20 MG CAP PEG SCH ×4 (00:23→17:33)
[2017-09-24 00:40] VITALS: BP 132/75
[2017-09-24 07:50] VITALS: BP 124/79; PULSE 71; RESP 20; TEMP 97.4; O2SAT 94
[2017-09-24] MEDS: SENNOSIDES SYRUP 8.8 MG/5 ML CUP PEG SCH (09:00)
[2017-09-24] MEDS: LISINOPRIL 20 MG TAB PEG SCH ×2 (09:28→20:54)
[2017-09-24] MEDS: LACTIC ACID (AMMONIUM LACTATE) 12% LOTION 225 GM BTL TOPICAL SCH ×2 (09:28→20:55)
[2017-09-24] MEDS: HYDROCHLOROTHIAZIDE 12.5 MG CAP PO SCH (09:29)
[2017-09-24] MEDS: LANSOPRAZOLE SOLUTAB 30 MG TAB G-TUBE SCH (09:29)
[2017-09-24] MEDS: NYSTATIN SUSP 500,000 U/5 ML CUP SWISH-SWAL SCH ×4 (09:29→20:55)
[2017-09-24] MEDS: METOPROLOL TARTRATE 100 MG TAB PEG SCH ×2 (09:29→20:54)
--- NOTE | 2017-09-24 11:15 | HHI.PR ---
Subjective Remarks Follow-up on hemorrhagic CVA. Patient seen and examined, lying bed sleeping, awakens to voice. Denies any new changes. No change in clinical condition. Objective Vitals Vital Signs Date Time Temp Pulse Resp B/P (MAP) Pulse Ox O2 Delivery O2 Flow Rate FiO2 09/24/17 07:50 97.4 71 20 124/79 (94) 94 09/24/17 00:40 132/75 (94) 09/23/17 20:41 98.0 84 16 126/78 (94) 94 I/O 09/23/17 09/23/17 09/23/17 09/24/17 09/24/17 09/24/17 07:00 15:00 23:00 07:00 15:00 23:00 # Voids 2 2 # Bowel Movements 0 Imaging Last Impressions Upper Extremity Ultrasound 08/03/17 0000 Signed Impressions: Service Date/Time: July 04:13 - CONCLUSION: Normal examination. Adi Quarles MD Chest X-Ray 05/31/17 0000 Signed Impressions: Service Date/Time: Wednesday, May 31, 2017 13:13 - CONCLUSION: 1. Improved right lower lung zone aeration with minimal residual airspace disease. Pipe Smart MD Head CT 04/25/17 0000 Signed Impressions: Service Date/Time: Tuesday, April 25, 2017 18:02 - CONCLUSION: 1. Evolving left thalamic hematoma. No new hemorrhage. Adi Quarles MD Abdomen X-Ray 04/12/17 1538 Signed Impressions: Service Date/Time: Wednesday, April 12, 2017 17:29 - CONCLUSION: Nonobstructive bowel gas pattern. Suresh Zapata MD Neck CTA 04/10/17 0000 Signed Impressions: Service Date/Time: Monday, April 10, 2017 22:28 - CONCLUSION: The internal carotid arteries are normal bilaterally. No significant atherosclerotic disease is noted. Eliud Du MD Head CTA 04/10/17 0000 Signed Impressions: Service Date/Time: Monday, April 10, 2017 22:50 - CONCLUSION: Mild dilatation of the basilar tip without discrete aneurysm. Some narrowing of the left middle cerebral branch after the bifurcation. Prominent left thalamic hemorrhage. Eliud Du MD Objective Remarks GENERAL: Well-developed, well-nourished, in no acute distress. Awake, responds minimally with head nods, tracking with eyes. Expressive aphasic, attempts to speak intermittently. HEENT: Head is normocephalic without any lesions or masses noted. Facial features are symmetric. Eyes: Conjunctivae were clear. CARDIAC: Regular rhythm, regular rate. S1/S2 are heard. 2/6 ejection, no gallops or rubs. LUNGS: Clear to auscultation bilaterally. No wheeze, rhonchi or rales. No use of accessory muscles on inspiration or expiration. ABDOMEN: Soft, nontender. Nondistended. Bowel sounds heard in all 4 quadrants. No organomegaly or masses. Negative guarding. PEG tube noted without any signs of infection, skin c/d/i, dressing intact. No erythema. EXTREMITIES: No edema, pulses are equal bilaterally. No cyanosis or clubbing NEUROLOGY: Patient is moving left upper extremity and able to move left foot. Patient unable to move right upper and lower extremity. Procedures Peg Tube placed 05/08/17 (Dr. De Los Santos) A/P Assessment and Plan Intracranial hemorrhage, 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 Neurosurgery evaluated patient states no surgical intervention Continue PT/OT/ST Case management consulted for inpatient rehabilitation, who indicated patient is homeless, no discharge disposition to inpatient rehabilitation. Dysphagia suspect secondary to intracranial bleed Post PEG placement 05/09/17. Speech therapy indicates patient is nothing by mouth, to continue to follow and advance diet per exam Dietary consulted and made recommendations for bolus feeding. Hypertension emergency, nursing staff has been holding blood pressure medication due to parameters of low blood pressure Nifedipine 40 mg every 6 hours Lisinopril 10 mg twice daily Apresoline 50 mg every 6 hours Catapres TTS 3 patch Metoprolol 100 mg twice daily HCTZ 12.5 mg daily Apresoline, clonidine as needed Hyperglycemia Hemoglobin A1c 6.2 Glucerna 1.5 bolus tube feeding Xeroderma on bilateral feet: Lac-Hydrin 12% Lotion continued. GI Prophylaxis: Prevacid via PEG tube DVT Prophylaxis: SCDs. Chemical prophylaxis contraindicated secondary to intracranial hemorrhage. Medical records reviewed and no change in treatment plan. Continue to monitor clinically. Discharge Planning Patient is stable to be discharged to rehabilitation facility. Case management assisting. Veena Calvillo Sep 24, 2017 11:15
[2017-09-24 12:30] VITALS: BP 119/78; PULSE 60; RESP 18
[2017-09-24 15:41] VITALS: BP 112/75; PULSE 58; RESP 20; TEMP 98.1; O2SAT 100
[2017-09-24 20:00] VITALS: BP 118/74; PULSE 62; RESP 18; TEMP 98.9; O2SAT 98
[2017-09-25] VITALS: BP 125/82; PULSE 57; RESP 18; TEMP 97.6; O2SAT 98
[2017-09-25] MEDS: NIFEdipine 20 MG CAP PEG SCH ×4 (00:38→17:06)
[2017-09-25] MEDS: hydrALAZINE HCL 50 MG TAB PEG SCH ×4 (00:38→17:06)
[2017-09-25 08:00] VITALS: BP 106/68; PULSE 71; RESP 18; TEMP 98.5; O2SAT 100
[2017-09-25] MEDS: SENNOSIDES SYRUP 8.8 MG/5 ML CUP PEG SCH (08:32)
[2017-09-25] MEDS: NYSTATIN SUSP 500,000 U/5 ML CUP SWISH-SWAL SCH ×4 (08:32→21:53)
[2017-09-25] MEDS: LISINOPRIL 20 MG TAB PEG SCH ×2 (08:33→21:54)
[2017-09-25] MEDS: LANSOPRAZOLE SOLUTAB 30 MG TAB G-TUBE SCH (08:33)
[2017-09-25] MEDS: LACTIC ACID (AMMONIUM LACTATE) 12% LOTION 225 GM BTL TOPICAL SCH ×2 (08:33→21:53)
[2017-09-25] MEDS: HYDROCHLOROTHIAZIDE 12.5 MG CAP PO SCH (08:33)
[2017-09-25] MEDS: METOPROLOL TARTRATE 100 MG TAB PEG SCH ×2 (08:33→21:53)
--- NOTE | 2017-09-25 11:32 | HHI.PR ---
Subjective Remarks Follow-up on hemorrhagic CVA. Patient seen and examined lying in bed comfortably. No changes in clinical condition. Continued expressive aphasia. Continued right upper and lower extremity flaccidity. Afebrile. VSS. Tolerating TF. Objective Vitals Vital Signs Date Time Temp Pulse Resp B/P (MAP) Pulse Ox O2 Delivery O2 Flow Rate FiO2 09/25/17 08:00 98.5 71 18 106/68 (81) 100 09/25/17 00:00 97.6 57 18 125/82 (96) 98 09/24/17 20:00 98.9 62 18 118/74 (89) 98 09/24/17 15:41 98.1 58 20 112/75 (87) 100 09/24/17 12:30 60 18 119/78 (92) I/O 09/24/17 09/24/17 09/24/17 09/25/17 09/25/17 09/25/17 07:00 15:00 23:00 07:00 15:00 23:00 Intake Total 800 ml 400 ml Balance 800 ml 400 ml Tube Feeding 480 ml 240 ml Tube Irrigant 320 ml 160 ml # Voids 2 1 4 # Bowel Movements 0 0 Imaging Last Impressions Upper Extremity Ultrasound 08/03/17 0000 Signed Impressions: Service Date/Time: July 04:13 - CONCLUSION: Normal examination. Adi Quarles MD Chest X-Ray 05/31/17 0000 Signed Impressions: Service Date/Time: Wednesday, May 31, 2017 13:13 - CONCLUSION: 1. Improved right lower lung zone aeration with minimal residual airspace disease. Pipe Smart MD Head CT 04/25/17 0000 Signed Impressions: Service Date/Time: Tuesday, April 25, 2017 18:02 - CONCLUSION: 1. Evolving left thalamic hematoma. No new hemorrhage. Adi Quarles MD Abdomen X-Ray 04/12/17 1538 Signed Impressions: Service Date/Time: Wednesday, April 12, 2017 17:29 - CONCLUSION: Nonobstructive bowel gas pattern. Suresh Zapata MD Neck CTA 04/10/17 0000 Signed Impressions: Service Date/Time: Monday, April 10, 2017 22:28 - CONCLUSION: The internal carotid arteries are normal bilaterally. No significant atherosclerotic disease is noted. Eliud Du MD Head CTA 04/10/17 0000 Signed Impressions: Service Date/Time: Monday, April 10, 2017 22:50 - CONCLUSION: Mild dilatation of the basilar tip without discrete aneurysm. Some narrowing of the left middle cerebral branch after the bifurcation. Prominent left thalamic hemorrhage. Eliud Du MD Objective Remarks GENERAL: Well-developed, well-nourished, in no acute distress. Awake, responds minimally with head nods, tracking with eyes. Expressive aphasic, attempts to speak intermittently. HEENT: Head is normocephalic without any lesions or masses noted. Facial features are symmetric. Eyes: Conjunctivae were clear. CARDIAC: Regular rhythm, regular rate. S1/S2 are heard. 2/6 ejection, no gallops or rubs. LUNGS: Clear to auscultation bilaterally. No wheeze, rhonchi or rales. No use of accessory muscles on inspiration or expiration. ABDOMEN: Soft, nontender. Nondistended. Bowel sounds heard in all 4 quadrants. No organomegaly or masses. Negative guarding. PEG tube noted without any signs of infection, skin c/d/i, dressing intact. No erythema. EXTREMITIES: No edema, pulses are equal bilaterally. No cyanosis or clubbing NEUROLOGY: Patient is moving left upper extremity and able to move left foot. Patient unable to move right upper and lower extremity. Procedures Peg Tube placed 05/08/17 (Dr. De Los Santos) A/P Assessment and Plan Intracranial hemorrhage, 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 Neurosurgery evaluated patient states no surgical intervention Continue PT/OT/ST Case management consulted for inpatient rehabilitation, who indicated patient is homeless, no discharge disposition to inpatient rehabilitation. Dysphagia suspect secondary to intracranial bleed Post PEG placement 05/09/17. Speech therapy indicates patient is nothing by mouth, to continue to follow and advance diet per exam Dietary consulted and made recommendations for bolus feeding. Hypertension emergency, nursing staff has been holding blood pressure medication due to parameters of low blood pressure Nifedipine 40 mg every 6 hours Lisinopril 10 mg twice daily Apresoline 50 mg every 6 hours Catapres TTS 3 patch Metoprolol 100 mg twice daily HCTZ 12.5 mg daily Apresoline, clonidine as needed Hyperglycemia Hemoglobin A1c 6.2 Glucerna 1.5 bolus tube feeding Xeroderma on bilateral feet: Lac-Hydrin 12% Lotion continued. GI Prophylaxis: Prevacid via PEG tube DVT Prophylaxis: SCDs. Chemical prophylaxis contraindicated secondary to intracranial hemorrhage. Medical records reviewed and no change in treatment plan. Continue to monitor clinically. Discharge Planning Patient is stable to be discharged to rehabilitation facility. Case management assisting. Veena Calvillo Sep 25, 2017 11:32
[2017-09-25 20:00] VITALS: BP 126/76; PULSE 61; RESP 20; TEMP 98.7; O2SAT 98
[2017-09-26] MEDS: NIFEdipine 20 MG CAP PEG SCH ×5 (01:26→23:47)
[2017-09-26] MEDS: hydrALAZINE HCL 50 MG TAB PEG SCH ×5 (01:27→23:47)
[2017-09-26] MEDS: METOPROLOL TARTRATE 100 MG TAB PEG SCH ×2 (09:50→20:07)
[2017-09-26] MEDS: LISINOPRIL 20 MG TAB PEG SCH ×2 (09:50→20:07)
[2017-09-26] MEDS: LANSOPRAZOLE SOLUTAB 30 MG TAB G-TUBE SCH (09:51)
[2017-09-26] MEDS: HYDROCHLOROTHIAZIDE 12.5 MG CAP PO SCH (09:51)
[2017-09-26] MEDS: LACTIC ACID (AMMONIUM LACTATE) 12% LOTION 225 GM BTL TOPICAL SCH ×2 (09:51→20:05)
[2017-09-26] MEDS: SENNOSIDES SYRUP 8.8 MG/5 ML CUP PEG SCH (09:51)
[2017-09-26] MEDS: NYSTATIN SUSP 500,000 U/5 ML CUP SWISH-SWAL SCH ×4 (09:51→20:06)
[2017-09-26 10:00] VITALS: BP 112/83; PULSE 62; RESP 16; TEMP 97.3; O2SAT 95
--- NOTE | 2017-09-26 10:44 | HHI.PR ---
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 Patient not indicate any new complaints. No change in clinical status. No acute events overnight. Objective Vitals Vital Signs Date Time Temp Pulse Resp B/P (MAP) Pulse Ox O2 Delivery O2 Flow Rate FiO2 09/26/17 10:00 97.3 62 16 112/83 (93) 95 09/25/17 20:00 98.7 61 20 126/76 (93) 98 Manual Cuff/Auscultation I/O 09/25/17 09/25/17 09/25/17 09/26/17 09/26/17 09/26/17 07:00 15:00 23:00 07:00 15:00 23:00 Intake Total 0 ml Balance 0 ml Intake Oral 0 ml # Voids 2 1 1 # Bowel Movements 0 0 Objective Remarks GENERAL: Well-developed, well-nourished, in no acute distress. Awake, responds minimally with head nods. Trying to speak HEENT: Head is normocephalic without any lesions or masses noted. Facial features are symmetric. Eyes: Conjunctivae were clear. CARDIAC: Regular rhythm, regular rate. S1/S2 are heard. 2/6 ejection, no gallops or rubs. LUNGS: Clear to auscultation bilaterally. No wheeze, rhonchi or rales. No use of accessory muscles on inspiration or expiration. ABDOMEN: Soft, nontender. Nondistended. Bowel sounds heard in all 4 quadrants. No organomegaly or masses. Negative rebound, negative guarding, PEG tube noted without any signs of infection EXTREMITIES: No edema, pulses are equal bilaterally. No cyanosis or clubbing NEUROLOGY: Patient is moving left upper extremity and able to move left foot. Patient unable to move right upper and lower extremity. Procedures Peg Tube placed 05/08/17 (Dr. De Los Santos) Urinary Catheter: No Vascular Central Line Catheter: No A/P Assessment and Plan Intracranial hemorrhage, 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 Neurosurgery evaluated patient states no surgical intervention Continue PT/OT/ST Consulted as indicated patient is stable to be discharged to rehabilitation facility Case management consulted for inpatient rehabilitation, who indicated patient is homeless, no discharge disposition to inpatient rehabilitation Dysphagia suspect secondary to intracranial bleed, Post PEG placement 05/09/17. Speech therapy indicates patient is nothing by mouth, to continue to follow and advance diet per exam Dietary consulted and made recommendations for bolus feeding Hypertension emergency, continue monitor blood pressure and adjust as needed Nifedipine 40 mg every 6 hours Lisinopril 10 mg twice daily Apresoline 50 mg every 6 hours Catapres TTS 3 patch Metoprolol 100 mg twice daily HCTZ 12.5 mg daily Apresoline, clonidine, Vasotec as needed Hyperglycemia Hemoglobin A1c 6.2 Glucerna 1.5 bolus tube feeding Xeroderma on bilateral feet: Lac-Hydrin 12% Lotion continued. GI Prophylaxis: Prevacid via PEG tube DVT Prophylaxis: Sequential compression devices, chemical prophylaxis contraindicated secondary to intracranial hemorrhage Discharge Planning Consult palliative care to evaluate for goals of care. Future treatment. Kayden Kelley Sep 26, 2017 10:44
[2017-09-26 13:00] VITALS: BP 146/89; PULSE 55; TEMP 96; O2SAT 99
--- NOTE | 2017-09-26 13:45 | PD.CONS ---
Consult Service Palliative Care Consult Requested By [facility] Primary Care Physician none Reason for Consultation a. To assist with evaluation and management of symptoms including: dysphagia , aphasia, hemiperisis. b. To assist medical decision maker(s) with: better understanding of current medical conditions; weighing benefits/burdens of medical treatment options; making medical treatment decisions. HPI History of Present Illness 61-year-old who was brought in on 04/10/2017 for altered mental status and has an extended hospital stay since then. Patient was brought in as a Jane[place] at the time. Patient was found by children playing in the park. Upon EMS arrival, his reported that patient has right sided hemiparesis and leftward gaze; nonverbal. Patient was brought to ER. EKG performed in the field is reportedly to show ST elevation and a STEMI was called. Patient was in hypertensive emergency, 250s/150s. In the ER, patient was found to be awake but nonverbal and able follow commands. At that time patient was able to protect her airway and will from her left arm and left leg but there were right upper and lower extremity hemiparesis. * . Vitals. Pulse is 76, respirations 22, blood pressure is 247/157, 99% on 2 L. * WBCs 5.0, H&H 14.6 and hematocrit 44.9, platelet count is 163 * Sodium is 141, potassium 3.9, chloride is 104, bicarbonate is 30.4, BUN is 7, creatinine 0.8 * Troponin I is less than 0.02, subsequent set of enzymes 0.04, and 0.03 * CT of the head shows acute thalamic and intraventricular hemorrhage on the left with approximately 7 mm of rightward midline shift. * Head CTA showing mild dilatation of the basilar tip without discrete aneurysm. There is narrowing of the left middle cerebral branches after bifurcation. Prominent left thalamic hemorrhage. * Neck CTA shows internal carotid arteries are normal bilaterally. Significant arthrosclerotic disease as noted. Patient condition was reviewed with her neurosurgeon on-call. Neurosurgery recommends medical management, and no surgical intervention. Patient's care was accepted by intensivists and patient was promptly transferred to the ICU. Patient remained in the ICU for the next few days, and blood pressure control with Cardene, prn hydralazine and labetalol. Head CT on 04/11/2017 shows stable ventricular parenchymal hemorrhage. Speech evaluated patient and recommends NPO. Patient was placed on a Dobbhoff for tube feedings, and abdominal x-ray shows Dobbhoff tube projects within the mid stomach. It is documented that pt has expressive and receptive aphasia, flaccid on the right side. By 04/14/2017 pt condition became stable enough, and care was transferred from magazine supervisor to hospitalist. Pt was never intubated and able to protect airway up to that point. Patient's care was taken over by hospitalist. On 04/15/2017, neurology was consulted and evaluated by neurology. Neurology noted that patient aroused to voice and over her eyes, but does not follow any commands. Neurology noted there is no speech, right facial droop, and unable to move right arm right leg. Left arm and left leg does withdraw to pain. Neurology recommends continue blood pressure control with systolic under 150, and continue monitoring with follow-up CTs to rule out obstructive hydrocephalus. Imaging on 04/25/2017, head CT. Shows slight interval decrease in the size of large acute intraparenchymal hemorrhage within the left basal ganglia which now measures 4.7 x 2.5 cm. There is also been decrease in volume acute intracranial ventricular hemorrhage and decrease in subfalcine herniation to the right. Hospitalist noted that patient remains largely unresponsive, no response to verbal physical commands.05/04/2017- GI was consulted for PEG tube placement. During this time case management was still having trouble locating patient's next of kin and finding out patient's identity. 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 May On 05/08/2017-patient underwent PEG tube placement and EGD patient was found to have mild chronic gastritis. PEG tube was placed, patient on tube feedings and dietitian was consulted and following. Patient on 05/15/2017 was documented as being awake, track eyes to voice. Observed to grasp with her left hand and move upper extremities spontaneously. Her to be able to give thumbs up sign. On 05/15/2017 case management was able to finally locate someone who knows patient. Patient name is found to be Magdalena Espinoza. On 05/19 family was found , daughter Aleena Wallace [phone], and case managment was able to proceed with Medicaid application. On 05/27/2017, pt son was found, although I did not see any names documented anywhere. It is documented that pt's son had visited pt and at times by pt's bedside. It is documented that pt does nod and or shake her head in responsive to questions. Speech continue to follow and by , pt is on puree diet, honey consistency. Pt had bouts of fevers during the month of May, but completed course of levaquin, and fever resolved. By the end of May: pt is able to nod her head to answer questions; on pureed diet with honey thickned liquids, but stil given boluses after meals. Neurology has said okay for discharge to rehab. Medical team remains vigilent on monitoring BP. SSI/BUSHRA jaden initated 05/24. June In the month of June. pt medical condition is overall stable, denies complaints. SSI/BUSHRA jaden remains in place. Speech however on 07/04 noted NPO. BP monitoring and control remains in place with various antihypertensive. Awaiting rehab, and placement by case management. July. Pt remains overall clinically stable, and documentation indicate, awaiting for discharge planning. Case managment noted, this will take extended time to get approval for SSI/BUSHRA. August Hospitalist noted 09/04, "pt awake responds, minimally with head nods, tracking with eyes, expressive aphasia, attempts to speak intermittently.." Case management note that pt has been approved for SSI and payee for patient is in place for set up with son. September. Hospitalist again [id number] "pt wake, respond minimally with head nods. trying to speak, and able to move left upper and lower ext." Case managment note that, they are awaiging for son to call back to set up SSI interview for Payee. Palliative consulted to review goals of care on day 169. On my visit, pt is able to follow directions to squeeze left hand and wiggle left foot. Pt is aphasic and tried to talk, but able to nod and shake head to indicate yes or no. Able to answer question correctly when ask Is the [place] blue ? Nodded for yes. The color of grass normally is pink? At times not able to answer some question correctly some questions, when ask how many childre she has she indicate 3. I ask her how many alive, she indicate 3. Records from the past indicate 2. On my exam, pt able to answer some questions correctly, at other times seems confused and look straight. She has dysphagia, and is on peg tube, and lsited as npo. She could not move her right sided. She did deny pain or discomfort on my visit. Due to limited speech, patient not able to quantify or characterize pain. I ask her if I can call her family , she nodded yes. Called Aleena Wallace, left voicemail and awaiting for reply. Son's name and number not listed at the chart. Function/Cognitive Trajectory Per previous hospital visit, pt has been homeless by choice. Pt had been [facility] for not taking bp medications. Per Dr. Forman note on "This is a 61-year-old -[place] female who refuses to take her blood pressure medication because she does not believe that she has a problem with the blood pressure. She feels paranoid that people are trying to give her medication and she does not need one. She was in the custodial for trespassing. She does not want to take any medication including medication for her paranoia and the blood pressure." Pt has delusional disorder as documented by psych. Prior psych documentation on 09/06/16 also noted in terms of [place] "[X] Refusing to provide express and informed consent to voluntary admission but is competent to provide express and informed consent for treatment. The person must be discharged or transferred to involuntary status." Review of Systems ROS Limitations: Clinical Condition Constitutional: COMPLAINS OF: Fatigue (complicated by left thalamic stroke, aphasia.) Eyes: DENIES: Eye inflammation Ears, nose, mouth, throat: COMPLAINS OF: Throat pain Gastrointestinal: COMPLAINS OF: Difficulty Swallowing (s/p stroke), DENIES: Abdominal pain Musculoskeletal: COMPLAINS OF: Decreased range of motion (right sided hemiperesis.) Neurologic: COMPLAINS OF: Speech Problems (right sided hemiparesis) Psychiatric: COMPLAINS OF: Delusions (hx of delusions and paranoia) Past Family Social History Coded Allergies: No Known Allergies (Unverified , 09/05/16) Past Medical History Hx of bruno acted for visual and auditory hallucinations. hx of bp, and has been non-compliant with medication, had express that bp and psychotropics could be poisoned. Past Surgical History Unable to obtain Reported Medications lisnopril 10 mg po daily (non compliant) Current Medications Medications (Trade) Dose Ordered Sig/Reymundo Route Start Time Stop Time Status Last Admin (Dulcolax Supp) 10 mg DAILY PRN RECTAL 04/10/17 22:00 (Pill Splitter) 1 ea UNSCH PRN OTHER 04/20/17 17:15 (Lac-Hydrin 12% Lotion) 1 applic BID TOPICAL 05/04/17 14:00 09/26/17 09:51 (Prevacid Odt) 30 mg DAILY G-TUBE 05/10/17 09:00 09/26/17 09:51 (Apresoline) 25 mg Q4HR PRN PEG 05/18/17 14:45 09/19/17 11:32 (Zofran Liq) 4 mg Q6H PRN PEG 05/26/17 10:00 (Catapres-Tts 0.3 Mg Patch.7d) 1 patch Q7D T-DERMAL 06/06/17 15:00 09/19/17 16:11 Miscellaneous Information 1 Q7D T-DERMAL 06/06/17 15:00 09/19/17 15:00 (Tylenol) 650 mg Q6H PRN PEG 06/16/17 16:00 08/14/17 15:13 (Lopressor) 100 mg BID PEG 06/16/17 21:00 09/26/17 09:50 (Procardia) 40 mg Q6HR PEG 06/26/17 12:00 09/26/17 06:16 (Senna Liq) 8.8 mg DAILY PEG 06/29/17 09:00 09/26/17 09:51 (Miralax) 17 gm DAILY PRN PO 08/17/17 08:30 08/30/17 23:22 (Apresoline) 50 mg Q6HR PEG 08/19/17 12:00 09/26/17 06:16 (Prinivil) 10 mg BID PEG 08/19/17 09:00 09/26/17 09:50 (Mycostatin Liq) 5 ml QID SWISH-SWAL 09/07/17 13:00 09/26/17 09:51 (Microzide) 12.5 mg DAILY PO 09/15/17 11:45 09/26/17 09:51 Family History unknown. unable to elicit Substance Use Tobacco: 5 or more cigarettes/ day Alcohol: documentation noted occasional etoh use Prescription med abuse:unknown Illicits:unknown Psychosocial History Hx of homelessness and custodial for trespassing. complicated by psychiatric his of delusions (unspecified). Pt is single, , unemployed. Patient was born in [facility]. She has 5 brothers and 5 sisters. She is a third oldest. She is very close to her parents. Her childhood was described as happy. She denied any physical verbal or sexual abuse growing up. 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 She got at the age of 21 that marriage lasted for 3 years she has one son out of wedlock one daughter after marriage and then one son . Patient does admit to social drinking denied any history of drug abuse she has been in trouble with the law only the first time. Spiritual/Cultural Factors Listed as yazidi Living Will: Never completed Health Care Surrogate: Never completed Durable Power of Drawing In Hand: Never completed Physical Exam Vital Signs Date Time Temp Pulse Resp B/P (MAP) Pulse Ox O2 Delivery O2 Flow Rate FiO2 09/26/17 10:00 97.3 62 16 112/83 (93) 95 09/25/17 20:00 98.7 61 20 126/76 (93) 98 Manual Cuff/Auscultation 09/26/17 09/27/17 19:00 07:00 # Voids 1 Exam CONSTITUTIONAL/GENERAL: This is an adequately nourished patient, in no apparent distress. SKIN: No jaundice, rashes, or lesions. Ecchymoses on upper extremities. No wounds seen anteriorly. Skin temperature appropriate. Not diaphoretic. HEAD: Atraumatic. Normocephalic. EYES: Pupils equal and round and reactive. Extraocular motions intact. No scleral icterus. No injection or drainage. Fundi not examined. ENT: Hearing grossly normal. Nose without bleeding or purulent drainage. Throat without visible erythema, exudates, masses, or lesions. NECK: Trachea midline. Supple, nontender. No palpable thyroid enlargement or nodularity. CARDIOVASCULAR: Regular rate and rhythm without murmurs, gallops, or rubs. No JVD. Peripheral pulses symmetric. RESPIRATORY/CHEST: Symmetric, unlabored respirations. Clear to auscultation. Breath sounds equal bilaterally. No wheezes, rales, or rhonchi. GASTROINTESTINAL: Abdomen soft, non-tender, nondistended. No hepato-splenomegaly , or palpable masses. No guarding. Bowel sounds present. Patient has peg tube in placed. GENITOURINARY: Without palpable bladder distension. Cruz catheter in place. MUSCULOSKELETAL: Lower ext edemetous, have dressing bilaterally, has boots on. LYMPHATICS: No palpable cervical or supraclavicular adenopathy. NEUROLOGICAL: Awake and alert. Right sided hemiperesis, flaccid. Follows commands, answer some questions correctly. PSYCHIATRIC: No obvious anxiety/depression on my visit Diagnostic Tests Imaging Last Impressions Upper Extremity Ultrasound 08/03/17 0000 Signed Impressions: Service Date/Time: July 04:13 - CONCLUSION: Normal examination. Adi Quarles MD Chest X-Ray 05/31/17 0000 Signed Impressions: Service Date/Time: Wednesday, May 31, 2017 13:13 - CONCLUSION: 1. Improved right lower lung zone aeration with minimal residual airspace disease. Pipe Smart MD Head CT 04/25/17 0000 Signed Impressions: Service Date/Time: Tuesday, April 25, 2017 18:02 - CONCLUSION: 1. Evolving left thalamic hematoma. No new hemorrhage. Adi Quarles MD Abdomen X-Ray 04/12/17 1538 Signed Impressions: Service Date/Time: Wednesday, April 12, 2017 17:29 - CONCLUSION: Nonobstructive bowel gas pattern. Suresh Zapata MD Neck CTA 04/10/17 0000 Signed Impressions: Service Date/Time: Monday, April 10, 2017 22:28 - CONCLUSION: The internal carotid arteries are normal bilaterally. No significant atherosclerotic disease is noted. Eliud Du MD Head CTA 04/10/17 0000 Signed Impressions: Service Date/Time: Monday, April 10, 2017 22:50 - CONCLUSION: Mild dilatation of the basilar tip without discrete aneurysm. Some narrowing of the left middle cerebral branch after the bifurcation. Prominent left thalamic hemorrhage. Eliud Du MD Patient/Family Conference Present at Family Conference: Patient. Called family, but has not called back. Family Conference Location: Bedside Issues Discussed: Assessment and Plan Disease Oriented Problem List: (1) Intracranial hemorrhage Comment: left thalamic hemorrhage, due to hypertensive emergency. (2) Malignant hypertension Comment: complicated by non compliance with medication due to delusion and paranoia (3) Unspecified psychosis (4) Delusional disorder (5) Hemiparesis Comment: right (6) Psychosis Symptom Scale: (1) Dysphagia 0-10 Scale: Unable to quantify (2) Aphasia 0-10 Scale: Unable to quantify (3) Hemiparesis 0-10 Scale: Unable to quantify Pertinent Non-Medical Issues Psychosocial:hx of delusions, paranoia, bruno act, non-compliance, now with thalamic stroke. Pt also is pending SSI. Spiritual:yazidi Legal:If not capacitated, surviving children, pt's daughter and son would be health care proxy. Son appears to be difficult to reach, per vp digital marketing social media and crm. Ethical issues impacting care:none at this time. Important Contacts Geri Wallace [phone]. Pt has a son, in which name and number has not been documented. Prognosis Pt with psychiatric hx of delusions, paranoia, has extensive hospital stay of 160 plus days after a left thalamic stroke. Pt is peg tube dependent, with hemiperisis; but has been relatively stable since April. She is at risk of recurrent hospitalization and setbacks. However given no recent pneumonia episodes, or major complications, I feel given pt continue tube feedings, prognosis is > 6 months. Albumin is 3.6 since last check on 09/07/2017 Code Status: Full Code Plan == Capacity- pt follows commands, appears to have some comprehension of medical situation. At times answer questions incorrectly, not knowing how many children she has. Prior to stroke patient also has profound hx of delusions, paranoia and bruno act. Spoke with medical team. Given hx of delusions, bruno act, psych hx, I will consult and defer to psychiatry opinion on capacity to make medical decisions. Has been on psychotropics in the past, and has been non compliant. Has stroke, appreciate psychiatry assistance to determine capacity to make medical decision, given prior hx of delusion, and poor judgement. == Goals of care: One pt's capacity is determine, palliative care will address goals of care with the appropriate republican. I have called and reach out to pt's daughter, left a voicemail and awaiting call back. In the mean time goals of care would need to be aggressive == symptoms- dysphagia/aphasia/hemiperisis- secondary to left thalamic stroke. No new recommendations, on tube feedings. Denies pain currently. == Decision maker- if pt is capacitated, palliative care will address designation of health care surrogate and goals of care with patient. If pt is not capacitated, pt's surviving children daughter Aleena Wallace, and son? (name not documented) will be health care proxy. I will reconsult vp digital marketing social media and crm again to assisst in getting name and phone number of son. Records have indicate son has visited patient. == palliative care will continue to assist in symptom managment and review goals of care as pt's condition evolves. d/w with medical team. Thank you for the opportunity to participate in the care of Ms. Miranda. Attestation To help prompt me to consider important information that might be impacting today's encounter and assessment, information from prior notes written by myself or my colleagues may have been "brought forward" into today's note. My signature on this note, however, is an attestation that I personally performed the exam, history, and/or decision-making noted today, and, unless otherwise indicated, the interactions with patient, family, and staff as well as the review of records all occurred today. I also attest that the listed assessment and stated plan reflect my best clinical judgment today based on the combination of historical information, prior notes, and today's exam/ interactions. When time spent is documented, it refers only to time spent today by the signer, or if indicated, combined time spent today by collaborating physician/nurse practitioner. Ricardo Acevedo MD Sep 26, 2017 13:43
[2017-09-26] MEDS: REMOVE OLD CATAPRES (CLONIDINE) PATCH T-DERMAL SCH (13:46)
[2017-09-26 13:47] VITALS: PULSE 72
[2017-09-26] MEDS: cloNIDine HCL 0.3 MG/24 HR PATCH T-DERMAL SCH (13:47)
[2017-09-26 20:00] VITALS: BP 169/108; PULSE 66; RESP 20; TEMP 97.8; O2SAT 99
[2017-09-27] VITALS: BP 136/92; PULSE 61; RESP 20; TEMP 97.9; O2SAT 100
[2017-09-27 04:00] VITALS: BP 154/100; PULSE 69; RESP 20; TEMP 98.8; O2SAT 99
[2017-09-27] MEDS: NIFEdipine 20 MG CAP PEG SCH ×3 (05:41→17:32)
[2017-09-27] MEDS: hydrALAZINE HCL 50 MG TAB PEG SCH ×3 (05:41→17:32)
[2017-09-27 08:00] VITALS: BP 123/84; PULSE 57; RESP 18; TEMP 97.2; O2SAT 98
[2017-09-27] MEDS: LACTIC ACID (AMMONIUM LACTATE) 12% LOTION 225 GM BTL TOPICAL SCH ×2 (08:11→22:37)
[2017-09-27] MEDS: SENNOSIDES SYRUP 8.8 MG/5 ML CUP PEG SCH (08:11)
[2017-09-27] MEDS: NYSTATIN SUSP 500,000 U/5 ML CUP SWISH-SWAL SCH ×4 (08:11→21:26)
[2017-09-27] MEDS: METOPROLOL TARTRATE 100 MG TAB PEG SCH ×2 (08:12→21:26)
[2017-09-27] MEDS: LANSOPRAZOLE SOLUTAB 30 MG TAB G-TUBE SCH (08:12)
[2017-09-27] MEDS: LISINOPRIL 20 MG TAB PEG SCH ×2 (08:12→21:26)
[2017-09-27] MEDS: HYDROCHLOROTHIAZIDE 12.5 MG CAP PO SCH (08:12)
--- NOTE | 2017-09-27 09:01 | HHI.PR ---
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 Patient denies any new complaints. No change in clinical status. Vital signs are stable. Objective Vitals Vital Signs Date Time Temp Pulse Resp B/P (MAP) Pulse Ox O2 Delivery O2 Flow Rate FiO2 09/27/17 04:00 98.8 69 20 154/100 (118) 99 09/27/17 00:00 97.9 61 20 136/92 (107) 100 09/26/17 20:00 97.8 66 20 169/108 (128) 99 09/26/17 13:47 72 09/26/17 13:00 96.0 55 146/89 (108) 99 09/26/17 10:00 97.3 62 16 112/83 (93) 95 I/O 09/26/17 09/26/17 09/26/17 09/27/17 09/27/17 09/27/17 07:00 15:00 23:00 07:00 15:00 23:00 Intake Total 0 ml 1140 ml 740 ml Balance 0 ml 1140 ml 740 ml Intake Oral 0 ml 0 ml Tube Feeding 720 ml 240 ml Tube Irrigant 500 ml Other 420 ml # Voids 1 1 1 # Bowel Movements 0 Objective Remarks GENERAL: Well-developed, well-nourished, in no acute distress. Awake, responds minimally with head nods. Trying to speak HEENT: Head is normocephalic without any lesions or masses noted. Facial features are symmetric. Eyes: Conjunctivae were clear. CARDIAC: Regular rhythm, regular rate. S1/S2 are heard. 2/6 ejection, no gallops or rubs. LUNGS: Clear to auscultation bilaterally. No wheeze, rhonchi or rales. No use of accessory muscles on inspiration or expiration. ABDOMEN: Soft, nontender. Nondistended. Bowel sounds heard in all 4 quadrants. No organomegaly or masses. Negative rebound, negative guarding, PEG tube noted without any signs of infection EXTREMITIES: No edema, pulses are equal bilaterally. No cyanosis or clubbing NEUROLOGY: Patient is moving left upper extremity and able to move left foot. Patient unable to move right upper and lower extremity. Procedures Peg Tube placed 05/08/17 (Dr. De Los Santos) Urinary Catheter: No Vascular Central Line Catheter: No A/P Assessment and Plan Intracranial hemorrhage, 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 Neurosurgery evaluated patient states no surgical intervention Continue PT/OT/ST Consulted as indicated patient is stable to be discharged to rehabilitation facility Case management consulted for inpatient rehabilitation, who indicated patient is homeless, no discharge disposition to inpatient rehabilitation Palliative care was consulted for recommendations. They're doing further evaluation and requested psychiatry to evaluate for competency Awaiting psychiatry evaluation Dysphagia suspect secondary to intracranial bleed, Post PEG placement 05/09/17. 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 GI Prophylaxis: Prevacid via PEG tube DVT Prophylaxis: Sequential compression devices, chemical prophylaxis contraindicated secondary to intracranial hemorrhage Discharge Planning Consult palliative care to evaluate for goals of care. Future treatment. Kayden Kelley Sep 27, 2017 09:01
[2017-09-27] MEDS: HYDROCHLOROTHIAZIDE 25 MG TAB PO SCH (09:15)
--- NOTE | 2017-09-27 13:28 | PD.PSY.CON ---
Provisional Diagnosis Admission Date Apr 10, 2017 at 20:54 [place]. 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 Hospitalized due to Intracranial hemorrhage, hemorrhagic CVA secondary to uncontrolled hypertension and hypertensive emergency. Thalamic ICH with intraventricular extension. Neurosurgery evaluated patient states no surgical intervention. Patient was seen yesterday for a palliative care team who were working in a safe discharge plan. On evaluation of decision-making capacity was requested. On psychiatric evaluation the patient is found awake, alert, but minimally verbal, unable to provide any information for the psychiatric assessment. She is able to communicate limitedly by nodding and moving her head. When I asked to the patient if she feels any pain she say is not. When asked about feeling sad she says no, but also responded not to feeling happy. Definably the limited information provide by patient is not reliable. Review of Systems ROS Limitations: Unresponsive, Uncooperative Except as stated in HPI: all other systems reviewed are Neg Past Family Social History Coded Allergies: No Known Allergies (Unverified , 09/05/16) Active Scripts Lisinopril (Lisinopril) 10 Mg Tab, 10 MG PO DAILY, #30 TAB 0 Refills Prov:Rena Cummings MD 09/03/16 Current Medications Medications (Trade) Dose Ordered Sig/Reymundo Route Start Time Stop Time Status Last Admin (Dulcolax Supp) 10 mg DAILY PRN RECTAL 04/10/17 22:00 (Pill Splitter) 1 ea UNSCH PRN OTHER 04/20/17 17:15 (Lac-Hydrin 12% Lotion) 1 applic BID TOPICAL 05/04/17 14:00 09/27/17 08:11 (Prevacid Odt) 30 mg DAILY G-TUBE 05/10/17 09:00 09/27/17 08:12 (Apresoline) 25 mg Q4HR PRN PEG 05/18/17 14:45 09/19/17 11:32 (Zofran Liq) 4 mg Q6H PRN PEG 05/26/17 10:00 (Catapres-Tts 0.3 Mg Patch.7d) 1 patch Q7D T-DERMAL 06/06/17 15:00 09/26/17 13:47 Miscellaneous Information 1 Q7D T-DERMAL 06/06/17 15:00 09/26/17 13:46 (Tylenol) 650 mg Q6H PRN PEG 06/16/17 16:00 08/14/17 15:13 (Lopressor) 100 mg BID PEG 06/16/17 21:00 09/27/17 08:12 (Procardia) 40 mg Q6HR PEG 06/26/17 12:00 09/27/17 13:03 (Senna Liq) 8.8 mg DAILY PEG 06/29/17 09:00 09/27/17 08:11 (Miralax) 17 gm DAILY PRN PO 08/17/17 08:30 08/30/17 23:22 (Apresoline) 50 mg Q6HR PEG 08/19/17 12:00 09/27/17 13:03 (Prinivil) 10 mg BID PEG 08/19/17 09:00 09/27/17 08:12 (Mycostatin Liq) 5 ml QID SWISH-SWAL 09/07/17 13:00 09/27/17 13:03 (Hydrodiuril) 25 mg DAILY PO 09/27/17 09:15 Social History Patient was born and raised in [place], she has been living in [place] for over 50 years, she single, she has 3 adult kids, she is unemployed, supported by residential, her highest level of education is 12th grade. Physical Exam Vital Signs Vital Signs Date Time Temp Pulse Resp B/P (MAP) Pulse Ox O2 Delivery O2 Flow Rate FiO2 09/27/17 08:00 97.2 57 18 123/84 (97) 98 I/O 09/27/17 09/27/17 09/28/17 08:00 16:00 00:00 Intake Total 740 ml Balance 740 ml Lab Results Date/Time Source Procedure Growth Status 05/28/17 10:13 Blood Peripheral Aerobic Blood Culture - Final NO GROWTH IN 5 DAYS Complete 05/28/17 10:13 Blood Peripheral Anaerobic Blood Culture - Final NO GROWTH IN 5 DAYS Complete 04/22/17 17:45 Urine Catheterized Urine Urine Culture - Final Escherichia Coli Complete Mental Status Examination Mental Status Exam Remarks Limited due to impairment in cognition Assessment & Plan Problem List: (1) Major neurocognitive disorder ICD Codes: F03.90 - Unspecified dementia without behavioral disturbance Assessment & Plan: On psychiatric evaluation today the patient is unable to provide any meaningful information to the psychiatric assessment due to neurocognitive disorder secondary to CVA. Patient is unable to express a choice regarding her treatment of discharge plan, she is also unable to verbalize understanding and appreciation of her underlying medical conditions, for this reason the patient does not have decision-making capacity to participate in her treatment or discharge plan at this moment. Patient does not present any significant neuropsychiatric symptoms that requires immediate psychiatric intervention or treatment. Consul appreciated. Assessment & Plan Estimated LOS: Declan Zelaya MD Sep 27, 2017 13:28
[2017-09-27 17:15] VITALS: BP 132/79
[2017-09-27 17:39] VITALS: PULSE 82
[2017-09-27 20:00] VITALS: BP 173/91; PULSE 62; RESP 20; TEMP 99.5; O2SAT 100
[2017-09-28] VITALS: BP 156/91; PULSE 55; RESP 20; TEMP 98.2; O2SAT 100
[2017-09-28] MEDS: NIFEdipine 20 MG CAP PEG SCH ×4 (00:49→17:06)
[2017-09-28] MEDS: hydrALAZINE HCL 50 MG TAB PEG SCH ×4 (00:49→17:06)
[2017-09-28 04:00] VITALS: BP 122/81; PULSE 61; RESP 20; TEMP 98.7; O2SAT 99
[2017-09-28 08:00] VITALS: BP 116/76; PULSE 90; RESP 16; TEMP 97.6; O2SAT 95
[2017-09-28] MEDS: NYSTATIN SUSP 500,000 U/5 ML CUP SWISH-SWAL SCH ×4 (09:25→21:04)
[2017-09-28] MEDS: SENNOSIDES SYRUP 8.8 MG/5 ML CUP PEG SCH (09:25)
[2017-09-28] MEDS: HYDROCHLOROTHIAZIDE 25 MG TAB PO SCH (09:25)
[2017-09-28] MEDS: LACTIC ACID (AMMONIUM LACTATE) 12% LOTION 225 GM BTL TOPICAL SCH ×2 (09:26→21:05)
[2017-09-28] MEDS: LANSOPRAZOLE SOLUTAB 30 MG TAB G-TUBE SCH (09:26)
[2017-09-28] MEDS: METOPROLOL TARTRATE 100 MG TAB PEG SCH ×2 (09:27→21:04)
[2017-09-28] MEDS: LISINOPRIL 20 MG TAB PEG SCH ×2 (09:27→21:04)
--- NOTE | 2017-09-28 11:46 | HHI.PR ---
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 Patient resting carefully. No indication of any new complaints. Vital signs are stable , afebrile Objective Vitals Vital Signs Date Time Temp Pulse Resp B/P (MAP) Pulse Ox O2 Delivery O2 Flow Rate FiO2 09/28/17 08:00 97.6 90 16 116/76 (89) 95 09/28/17 04:00 98.7 61 20 122/81 (95) 99 09/28/17 00:00 98.2 55 20 156/91 (112) 100 09/27/17 20:00 99.5 62 20 173/91 (118) 100 09/27/17 17:39 82 09/27/17 17:15 132/79 (96) I/O 09/27/17 09/27/17 09/27/17 09/28/17 09/28/17 09/28/17 07:00 15:00 23:00 07:00 15:00 23:00 Intake Total 740 ml 1600 ml 180 ml 240 ml Balance 740 ml 1600 ml 180 ml 240 ml Intake Oral 0 ml Tube Feeding 240 ml 960 ml 240 ml Tube Irrigant 500 ml 300 ml 180 ml Other 340 ml # Voids 1 1 1 # Bowel Movements 1 1 Objective Remarks GENERAL: Well-developed, well-nourished, in no acute distress. Awake, responds minimally with head nods. Trying to speak HEENT: Head is normocephalic without any lesions or masses noted. Facial features are symmetric. Eyes: Conjunctivae were clear. CARDIAC: Regular rhythm, regular rate. S1/S2 are heard. 2/6 ejection, no gallops or rubs. LUNGS: Clear to auscultation bilaterally. No wheeze, rhonchi or rales. No use of accessory muscles on inspiration or expiration. ABDOMEN: Soft, nontender. Nondistended. Bowel sounds heard in all 4 quadrants. No organomegaly or masses. Negative rebound, negative guarding, PEG tube noted without any signs of infection EXTREMITIES: No edema, pulses are equal bilaterally. No cyanosis or clubbing NEUROLOGY: Patient is moving left upper extremity and able to move left foot. Patient unable to move right upper and lower extremity. Procedures Peg Tube placed 05/08/17 (Dr. De Los Santos) Urinary Catheter: No Vascular Central Line Catheter: No A/P Assessment and Plan Intracranial hemorrhage, 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 Neurosurgery evaluated patient states no surgical intervention Continue PT/OT/ST Consulted as indicated patient is stable to be discharged to rehabilitation facility Case management consulted for inpatient rehabilitation, who indicated patient is homeless, no discharge disposition to inpatient rehabilitation Palliative care was consulted for recommendations. They're doing further evaluation and requested psychiatry to evaluate for competency Psychiatry indicates that the patient does not have decision-making capacity to participate in her treatment or discharge plan. Dysphagia suspect secondary to intracranial bleed, Post PEG placement 05/09/17. 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 GI Prophylaxis: Prevacid via PEG tube DVT Prophylaxis: Sequential compression devices, chemical prophylaxis contraindicated secondary to intracranial hemorrhage Records were reviewed. No change in current treatment plan. Awaiting case management for discharge planning Discharge Planning Consult palliative care to evaluate for goals of care. Future treatment. Kayden Kelley Sep 28, 2017 11:46
[2017-09-28 20:00] VITALS: BP 136/79; PULSE 75; RESP 16; TEMP 98.1; O2SAT 97
[2017-09-29] VITALS: BP 149/97; PULSE 65; RESP 16; TEMP 97.6; O2SAT 95
[2017-09-29] MEDS: NIFEdipine 20 MG CAP PEG SCH ×4 (00:33→18:31)
[2017-09-29] MEDS: hydrALAZINE HCL 50 MG TAB PEG SCH ×4 (00:33→18:31)
[2017-09-29 04:00] VITALS: BP 145/84; PULSE 70; RESP 16; TEMP 97.6; O2SAT 97
[2017-09-29 08:00] VITALS: BP 140/83; PULSE 81; RESP 12; TEMP 96.9; O2SAT 99
--- NOTE | 2017-09-29 08:19 | HHI.PR ---
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 Patient denies any new complaints. Son at bedside. Vital signs are stable, afebrile Objective Vitals Vital Signs Date Time Temp Pulse Resp B/P (MAP) Pulse Ox O2 Delivery O2 Flow Rate FiO2 09/29/17 04:00 97.6 70 16 145/84 (104) 97 09/29/17 00:00 97.6 65 16 149/97 (114) 95 09/28/17 20:00 98.1 75 16 136/79 (98) 97 I/O 09/28/17 09/28/17 09/28/17 09/29/17 09/29/17 09/29/17 07:00 15:00 23:00 07:00 15:00 23:00 Intake Total 180 ml 240 ml 640 ml 780 ml Balance 180 ml 240 ml 640 ml 780 ml Intake Oral 0 ml 0 ml Tube Feeding 240 ml 480 ml 240 ml Tube Irrigant 180 ml 180 ml Other 160 ml 360 ml # Voids 1 1 3 2 # Bowel Movements 1 2 Objective Remarks GENERAL: Well-developed, well-nourished, in no acute distress. Awake, responds minimally with head nods. Trying to speak HEENT: Head is normocephalic without any lesions or masses noted. Facial features are symmetric. Eyes: Conjunctivae were clear. CARDIAC: Regular rhythm, regular rate. S1/S2 are heard. 2/6 ejection, no gallops or rubs. LUNGS: Clear to auscultation bilaterally. No wheeze, rhonchi or rales. No use of accessory muscles on inspiration or expiration. ABDOMEN: Soft, nontender. Nondistended. Bowel sounds heard in all 4 quadrants. No organomegaly or masses. Negative rebound, negative guarding, PEG tube noted without any signs of infection EXTREMITIES: No edema, pulses are equal bilaterally. No cyanosis or clubbing NEUROLOGY: Patient is moving left upper extremity and able to move left foot. Patient unable to move right upper and lower extremity. Procedures Peg Tube placed 05/08/17 (Dr. De Los Santos) Urinary Catheter: No Vascular Central Line Catheter: No A/P Assessment and Plan Intracranial hemorrhage, 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 Neurosurgery evaluated patient states no surgical intervention Continue PT/OT/ST Consulted as indicated patient is stable to be discharged to rehabilitation facility Case management consulted for inpatient rehabilitation, who indicated patient is homeless, no discharge disposition to inpatient rehabilitation Palliative care was consulted for recommendations. They're doing further evaluation and requested psychiatry to evaluate for competency Psychiatry indicates that the patient does not have decision-making capacity to participate in her treatment or discharge plan. Dysphagia suspect secondary to intracranial bleed, Post PEG placement 05/09/17. 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 GI Prophylaxis: Prevacid via PEG tube DVT Prophylaxis: Sequential compression devices, chemical prophylaxis contraindicated secondary to intracranial hemorrhage Records were reviewed. Awaiting case management for discharge planning. No change in current treatment plan. Discharge Planning Consult palliative care to evaluate for goals of care. Future treatment. Kayden Kelley Sep 29, 2017 08:19
[2017-09-29] MEDS: SENNOSIDES SYRUP 8.8 MG/5 ML CUP PEG SCH (09:00)
[2017-09-29] MEDS: LANSOPRAZOLE SOLUTAB 30 MG TAB G-TUBE SCH (10:26)
[2017-09-29] MEDS: METOPROLOL TARTRATE 100 MG TAB PEG SCH ×2 (10:26→21:42)
[2017-09-29] MEDS: LISINOPRIL 20 MG TAB PEG SCH ×2 (10:26→21:46)
[2017-09-29] MEDS: HYDROCHLOROTHIAZIDE 25 MG TAB PO SCH (10:26)
[2017-09-29] MEDS: NYSTATIN SUSP 500,000 U/5 ML CUP SWISH-SWAL SCH ×4 (10:26→21:42)
[2017-09-29] MEDS: LACTIC ACID (AMMONIUM LACTATE) 12% LOTION 225 GM BTL TOPICAL SCH ×2 (10:26→21:46)
[2017-09-29 20:28] VITALS: BP 139/72; PULSE 70; RESP 16; TEMP 96.6; O2SAT 91
[2017-09-30] MEDS: NIFEdipine 20 MG CAP PEG SCH ×4 (00:19→16:56)
[2017-09-30] MEDS: hydrALAZINE HCL 50 MG TAB PEG SCH ×4 (00:19→16:56)
[2017-09-30 08:00] VITALS: BP 102/55; PULSE 77; RESP 18; TEMP 98.7; O2SAT 98
[2017-09-30] MEDS: NYSTATIN SUSP 500,000 U/5 ML CUP SWISH-SWAL SCH ×4 (08:01→19:39)
[2017-09-30] MEDS: SENNOSIDES SYRUP 8.8 MG/5 ML CUP PEG SCH (08:01)
[2017-09-30] MEDS: LISINOPRIL 20 MG TAB PEG SCH ×2 (08:01→19:39)
[2017-09-30] MEDS: METOPROLOL TARTRATE 100 MG TAB PEG SCH ×2 (08:01→19:39)
[2017-09-30] MEDS: HYDROCHLOROTHIAZIDE 25 MG TAB PO SCH (08:01)
[2017-09-30] MEDS: LANSOPRAZOLE SOLUTAB 30 MG TAB G-TUBE SCH (08:01)
[2017-09-30] MEDS: LACTIC ACID (AMMONIUM LACTATE) 12% LOTION 225 GM BTL TOPICAL SCH ×2 (08:02→19:39)
--- NOTE | 2017-09-30 10:34 | HHI.PR ---
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 Patient lying in bed comfortable. No change in clinical status. Vital signs are stable , afebrile Objective Vitals Vital Signs Date Time Temp Pulse Resp B/P (MAP) Pulse Ox O2 Delivery O2 Flow Rate FiO2 09/30/17 08:00 98.7 77 18 102/55 (71) 98 09/29/17 20:28 96.6 70 16 139/72 (94) 91 I/O 09/29/17 09/29/17 09/29/17 09/30/17 09/30/17 09/30/17 07:00 15:00 23:00 07:00 15:00 23:00 Intake Total 780 ml Balance 780 ml Tube Feeding 240 ml Tube Irrigant 180 ml Other 360 ml # Voids 2 1 2 # Bowel Movements 0 1 Objective Remarks GENERAL: Well-developed, well-nourished, in no acute distress. Awake, responds minimally with head nods. Trying to speak HEENT: Head is normocephalic without any lesions or masses noted. Facial features are symmetric. Eyes: Conjunctivae were clear. CARDIAC: Regular rhythm, regular rate. S1/S2 are heard. 2/6 ejection, no gallops or rubs. LUNGS: Clear to auscultation bilaterally. No wheeze, rhonchi or rales. No use of accessory muscles on inspiration or expiration. ABDOMEN: Soft, nontender. Nondistended. Bowel sounds heard in all 4 quadrants. No organomegaly or masses. Negative rebound, negative guarding, PEG tube noted without any signs of infection EXTREMITIES: No edema, pulses are equal bilaterally. No cyanosis or clubbing NEUROLOGY: Patient is moving left upper extremity and able to move left foot. Patient unable to move right upper and lower extremity. Procedures Peg Tube placed 05/08/17 (Dr. De Los Santos) Urinary Catheter: No Vascular Central Line Catheter: No A/P Assessment and Plan Intracranial hemorrhage, 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 Neurosurgery evaluated patient states no surgical intervention Continue PT/OT/ST Consulted as indicated patient is stable to be discharged to rehabilitation facility Case management consulted for inpatient rehabilitation, who indicated patient is homeless, no discharge disposition to inpatient rehabilitation Palliative care was consulted for recommendations. They're doing further evaluation and requested psychiatry to evaluate for competency Psychiatry indicates that the patient does not have decision-making capacity to participate in her treatment or discharge plan. Dysphagia suspect secondary to intracranial bleed, Post PEG placement 05/09/17. 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 GI Prophylaxis: Prevacid via PEG tube DVT Prophylaxis: Sequential compression devices, chemical prophylaxis contraindicated secondary to intracranial hemorrhage Records were reviewed. No change in current treatment plan. Awaiting case management for discharge planning. Discharge Planning Consult palliative care to evaluate for goals of care. Future treatment. Kayden Kelley Sep 30, 2017 10:34
[2017-09-30 20:31] VITALS: BP 130/76; PULSE 66; RESP 16; TEMP 98.6; O2SAT 99
[2017-10-01] MEDS: NIFEdipine 20 MG CAP PEG SCH ×4 (00:42→18:32)
[2017-10-01] MEDS: hydrALAZINE HCL 50 MG TAB PEG SCH ×4 (00:43→18:32)
[2017-10-01 08:00] VITALS: BP 129/75; PULSE 82; RESP 18; TEMP 97.8; O2SAT 100
--- NOTE | 2017-10-01 08:15 | HHI.PR ---
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 Patient does not indicate any new complaints. She is resting comfortably. Vital signs are stable, afebrile. Nursing staff does not indicate any acute events overnight Objective Vitals Vital Signs Date Time Temp Pulse Resp B/P (MAP) Pulse Ox O2 Delivery O2 Flow Rate FiO2 09/30/17 20:31 98.6 66 16 130/76 (94) 99 I/O 09/30/17 09/30/17 09/30/17 10/01/17 10/01/17 10/01/17 07:00 15:00 23:00 07:00 15:00 23:00 Intake Total 480 ml Balance 480 ml Tube Feeding 240 ml Tube Irrigant 240 ml # Voids 2 2 2 # Bowel Movements 1 0 0 Objective Remarks GENERAL: Well-developed, well-nourished, in no acute distress. Awake, responds minimally with head nods. Trying to speak HEENT: Head is normocephalic without any lesions or masses noted. Facial features are symmetric. Eyes: Conjunctivae were clear. CARDIAC: Regular rhythm, regular rate. S1/S2 are heard. 2/6 ejection, no gallops or rubs. LUNGS: Clear to auscultation bilaterally. No wheeze, rhonchi or rales. No use of accessory muscles on inspiration or expiration. ABDOMEN: Soft, nontender. Nondistended. Bowel sounds heard in all 4 quadrants. No organomegaly or masses. Negative rebound, negative guarding, PEG tube noted without any signs of infection EXTREMITIES: No edema, pulses are equal bilaterally. No cyanosis or clubbing NEUROLOGY: Patient is moving left upper extremity and able to move left foot. Patient unable to move right upper and lower extremity. Procedures Peg Tube placed 05/08/17 (Dr. De Los Santos) Urinary Catheter: No Vascular Central Line Catheter: No A/P Assessment and Plan Intracranial hemorrhage, 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 Neurosurgery evaluated patient states no surgical intervention Continue PT/OT/ST Consulted as indicated patient is stable to be discharged to rehabilitation facility Case management consulted for inpatient rehabilitation, who indicated patient is homeless, no discharge disposition to inpatient rehabilitation Palliative care was consulted for recommendations. They recommended, see evaluation which has been done. Awaiting further recommendations Psychiatry indicates that the patient does not have decision-making capacity to participate in her treatment or discharge plan. Dysphagia suspect secondary to intracranial bleed, Post PEG placement 05/09/17. 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 GI Prophylaxis: Prevacid via PEG tube DVT Prophylaxis: Sequential compression devices, chemical prophylaxis contraindicated secondary to intracranial hemorrhage Records were reviewed. Awaiting case management for discharge planning. No change in current treatment plan. Discharge Planning Consult palliative care to evaluate for goals of care. Future treatment. Awaiting further recommendations Kayden Kelley Oct 01, 2017 08:15
[2017-10-01] MEDS: LACTIC ACID (AMMONIUM LACTATE) 12% LOTION 225 GM BTL TOPICAL SCH ×2 (09:00→22:14)
[2017-10-01] MEDS: LISINOPRIL 20 MG TAB PEG SCH ×2 (10:43→22:15)
[2017-10-01] MEDS: METOPROLOL TARTRATE 100 MG TAB PEG SCH ×2 (10:43→22:15)
[2017-10-01] MEDS: HYDROCHLOROTHIAZIDE 25 MG TAB PO SCH (10:43)
[2017-10-01] MEDS: SENNOSIDES SYRUP 8.8 MG/5 ML CUP PEG SCH (10:44)
[2017-10-01] MEDS: LANSOPRAZOLE SOLUTAB 30 MG TAB G-TUBE SCH (10:44)
[2017-10-01] MEDS: NYSTATIN SUSP 500,000 U/5 ML CUP SWISH-SWAL SCH ×4 (10:44→22:14)
[2017-10-01 21:50] VITALS: BP 139/63; PULSE 69; RESP 18; TEMP 98.1; O2SAT 97
[2017-10-02] MEDS: hydrALAZINE HCL 50 MG TAB PEG SCH ×4 (00:23→17:39)
[2017-10-02] MEDS: NIFEdipine 20 MG CAP PEG SCH ×4 (00:23→17:39)
[2017-10-02 04:00] VITALS: BP 137/69; PULSE 73
[2017-10-02 08:00] VITALS: BP 119/75; PULSE 72; RESP 16; TEMP 96.2; O2SAT 98
--- NOTE | 2017-10-02 09:25 | HHI.HCPN ---
Psychiatry has found pt to be not capacitated to make decisions. Health Care Decision maker, Therefore under [place] [employer], pt's family, son Vinnie Álvarez, and Aleena Wallace are the proxy to make medical decisions. I was able to speak with Vinnie Álvarez, today. Aleena Wallace has not return phone call. Vinnie goals of care for mom is: == to finish getting insurance process for Mom and get mom place. == at this point in time he is not amenable for comfort measures only or hospice. We talked about rehospitalization, infection, and her general debility. For the time being his only concern is to get her placed. == As it will take both children to be on the same page with comfort measures. Goals of care are aggressive. == She is to remain a Full Code. == I will re-consult case managment again, as son said he needs help with getting her mom on insurance, and also ask if assist with providing documentation stating that pt does not have capacity to make medical decisions. Palliative care will also provide additional guidance if necessary. == Palliative care will follow up as needed, goals of care is aggressive. Ricardo Acevedo MD Oct 02, 2017 09:25
--- NOTE | 2017-10-02 09:30 | HHI.PR ---
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 No acute events overnight. Patient does not indicate any new complaints. No change in clinical status. Objective Vitals Vital Signs Date Time Temp Pulse Resp B/P (MAP) Pulse Ox O2 Delivery O2 Flow Rate FiO2 10/02/17 08:00 96.2 72 16 119/75 (90) 98 10/02/17 04:00 73 137/69 (91) 10/01/17 21:50 98.1 69 18 139/63 (88) 97 I/O 10/01/17 10/01/17 10/01/17 10/02/17 10/02/17 10/02/17 07:00 15:00 23:00 07:00 15:00 23:00 Intake Total 0 ml 420 ml 300 ml Balance 0 ml 420 ml 300 ml Intake Oral 0 ml Tube Feeding 240 ml Tube Irrigant 180 ml 300 ml # Voids 2 1 1 2 # Bowel Movements 0 1 0 Objective Remarks GENERAL: Well-developed, well-nourished, in no acute distress. Awake, responds minimally with head nods. Trying to speak HEENT: Head is normocephalic without any lesions or masses noted. Facial features are symmetric. Eyes: Conjunctivae were clear. CARDIAC: Regular rhythm, regular rate. S1/S2 are heard. 2/6 ejection, no gallops or rubs. LUNGS: Clear to auscultation bilaterally. No wheeze, rhonchi or rales. No use of accessory muscles on inspiration or expiration. ABDOMEN: Soft, nontender. Nondistended. Bowel sounds heard in all 4 quadrants. No organomegaly or masses. Negative rebound, negative guarding, PEG tube noted without any signs of infection EXTREMITIES: No edema, pulses are equal bilaterally. No cyanosis or clubbing NEUROLOGY: Patient is moving left upper extremity and able to move left foot. Patient unable to move right upper and lower extremity. Procedures Peg Tube placed 05/08/17 (Dr. De Los Santos) Urinary Catheter: No Vascular Central Line Catheter: No A/P Assessment and Plan Intracranial hemorrhage, 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 Neurosurgery evaluated patient states no surgical intervention Continue PT/OT/ST Consulted as indicated patient is stable to be discharged to rehabilitation facility Case management consulted for inpatient rehabilitation, who indicated patient is homeless, no discharge disposition to inpatient rehabilitation Palliative care was consulted for recommendations. They recommended, see evaluation which has been done. Awaiting further recommendations Psychiatry indicates that the patient does not have decision-making capacity to participate in her treatment or discharge plan. Dysphagia suspect secondary to intracranial bleed, Post PEG placement 05/09/17. 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 GI Prophylaxis: Prevacid via PEG tube DVT Prophylaxis: Sequential compression devices, chemical prophylaxis contraindicated secondary to intracranial hemorrhage Records were reviewed. No change in current treatment plan. Awaiting case management for discharge planning. Discharge Planning Consult palliative care to evaluate for goals of care. Future treatment. Awaiting further recommendations Kayden Kelley Oct 02, 2017 09:29
[2017-10-02] MEDS: SENNOSIDES SYRUP 8.8 MG/5 ML CUP PEG SCH (09:50)
[2017-10-02] MEDS: NYSTATIN SUSP 500,000 U/5 ML CUP SWISH-SWAL SCH ×4 (09:50→21:28)
[2017-10-02] MEDS: LACTIC ACID (AMMONIUM LACTATE) 12% LOTION 225 GM BTL TOPICAL SCH (09:50)
[2017-10-02] MEDS: HYDROCHLOROTHIAZIDE 25 MG TAB PO SCH (09:50)
[2017-10-02] MEDS: LANSOPRAZOLE SOLUTAB 30 MG TAB G-TUBE SCH (09:50)
[2017-10-02] MEDS: LISINOPRIL 20 MG TAB PEG SCH ×2 (09:51→21:32)
[2017-10-02] MEDS: METOPROLOL TARTRATE 100 MG TAB PEG SCH ×2 (09:51→21:28)
[2017-10-02 20:00] VITALS: BP 113/75; PULSE 82; RESP 20; TEMP 98.8; O2SAT 98
[2017-10-03] MEDS: NIFEdipine 20 MG CAP PEG SCH ×5 (00:48→23:37)
[2017-10-03] MEDS: hydrALAZINE HCL 50 MG TAB PEG SCH ×5 (00:48→23:37)
[2017-10-03] MEDS: LACTIC ACID (AMMONIUM LACTATE) 12% LOTION 225 GM BTL TOPICAL SCH ×3 (00:48→21:37)
[2017-10-03 08:00] VITALS: BP 131/83; PULSE 70; RESP 14; TEMP 97.3; O2SAT 98
[2017-10-03] MEDS: NYSTATIN SUSP 500,000 U/5 ML CUP SWISH-SWAL SCH ×4 (08:35→21:31)
[2017-10-03] MEDS: SENNOSIDES SYRUP 8.8 MG/5 ML CUP PEG SCH (08:35)
[2017-10-03] MEDS: LISINOPRIL 20 MG TAB PEG SCH ×2 (08:36→21:30)
[2017-10-03] MEDS: HYDROCHLOROTHIAZIDE 25 MG TAB PO SCH (08:36)
[2017-10-03] MEDS: LANSOPRAZOLE SOLUTAB 30 MG TAB G-TUBE SCH (08:36)
[2017-10-03] MEDS: METOPROLOL TARTRATE 100 MG TAB PEG SCH ×2 (08:36→21:30)
--- NOTE | 2017-10-03 09:38 | HHI.PR ---
Subjective Remarks Follow up hemorrhagic CVA. Patient seen and examined. Lying in bed comfortably. RN at bedside. Patient awake and alert. No change in clinical condition. No reports from RN of any acute events overnight. Objective Vitals Vital Signs Date Time Temp Pulse Resp B/P (MAP) Pulse Ox O2 Delivery O2 Flow Rate FiO2 10/03/17 08:00 97.3 70 14 131/83 (99) 98 10/02/17 20:00 98.8 82 20 113/75 (88) 98 I/O 10/02/17 10/02/17 10/02/17 10/03/17 10/03/17 10/03/17 07:00 15:00 23:00 07:00 15:00 23:00 Intake Total 300 ml 0 ml Balance 300 ml 0 ml Intake Oral 0 ml Tube Irrigant 300 ml # Voids 2 1 2 # Bowel Movements 0 0 0 Imaging Last Impressions Upper Extremity Ultrasound 08/03/17 0000 Signed Impressions: Service Date/Time: July 04:13 - CONCLUSION: Normal examination. Adi Quarles MD Chest X-Ray 05/31/17 0000 Signed Impressions: Service Date/Time: Wednesday, May 31, 2017 13:13 - CONCLUSION: 1. Improved right lower lung zone aeration with minimal residual airspace disease. Pipe Smart MD Head CT 04/25/17 0000 Signed Impressions: Service Date/Time: Tuesday, April 25, 2017 18:02 - CONCLUSION: 1. Evolving left thalamic hematoma. No new hemorrhage. Adi Quarles MD Abdomen X-Ray 04/12/17 1538 Signed Impressions: Service Date/Time: Wednesday, April 12, 2017 17:29 - CONCLUSION: Nonobstructive bowel gas pattern. Suresh Zapata MD Neck CTA 04/10/17 0000 Signed Impressions: Service Date/Time: Monday, April 10, 2017 22:28 - CONCLUSION: The internal carotid arteries are normal bilaterally. No significant atherosclerotic disease is noted. Eliud Du MD Head CTA 04/10/17 0000 Signed Impressions: Service Date/Time: Monday, April 10, 2017 22:50 - CONCLUSION: Mild dilatation of the basilar tip without discrete aneurysm. Some narrowing of the left middle cerebral branch after the bifurcation. Prominent left thalamic hemorrhage. Eliud Du MD Objective Remarks GENERAL: Well-developed, well-nourished, in no acute distress. Awake, responds minimally with head nods, tracking with eyes. Expressive aphasic, attempts to speak intermittently. HEENT: Head is normocephalic without any lesions or masses noted. Facial features are symmetric. Eyes: Conjunctivae were clear. CARDIAC: Regular rhythm, regular rate. S1/S2 are heard. 2/6 ejection, no gallops or rubs. LUNGS: Clear to auscultation bilaterally. No wheeze, rhonchi or rales. No use of accessory muscles on inspiration or expiration. ABDOMEN: Soft, nontender. Nondistended. Bowel sounds heard in all 4 quadrants. No organomegaly or masses. Negative guarding. PEG tube noted without any signs of infection, skin c/d/i, dressing intact. No erythema. EXTREMITIES: No edema, pulses are equal bilaterally. No cyanosis or clubbing NEUROLOGY: Patient is moving left upper extremity and able to move left foot. Patient unable to move right upper and lower extremity. Procedures Peg Tube placed 05/08/17 (Dr. De Los Santos) A/P Assessment and Plan Intracranial hemorrhage, 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 Neurosurgery evaluated patient states no surgical intervention Continue PT/OT/ST Case management consulted for inpatient rehabilitation, who indicated patient is homeless, no discharge disposition to inpatient rehabilitation. Psychiatry has seen and assessed patient who has indicated that patient does not have decision-making capacity in her treatment discharge plan. Palliative care has seen and assessed patient and spoken to son. Current goals of care are aggressive and patient remains a full code. Will continue to follow. Dysphagia suspect secondary to intracranial bleed Post PEG placement 05/09/17. Speech therapy indicates patient is nothing by mouth, to continue to follow and advance diet per exam Dietary consulted and made recommendations for bolus feeding. Hypertension emergency, nursing staff has been holding blood pressure medication due to parameters of low blood pressure Nifedipine 40 mg every 6 hours Lisinopril 10 mg twice daily Apresoline 50 mg every 6 hours Catapres TTS 3 patch Metoprolol 100 mg twice daily HCTZ 12.5 mg daily Apresoline, clonidine as needed Hyperglycemia Hemoglobin A1c 6.2 Glucerna 1.5 bolus tube feeding Xeroderma on bilateral feet: Lac-Hydrin 12% Lotion continued. GI Prophylaxis: Prevacid via PEG tube DVT Prophylaxis: SCDs. Chemical prophylaxis contraindicated secondary to intracranial hemorrhage. Medical records reviewed and no change in treatment plan. Continue to monitor clinically. Discharge Planning Patient is stable to be discharged to rehabilitation facility. Case management assisting. Veena Calvillo Oct 03, 2017 09:38
[2017-10-03 12:00] VITALS: BP 131/75; PULSE 60; RESP 14; TEMP 97.6; O2SAT 100
[2017-10-03] MEDS: REMOVE OLD CATAPRES (CLONIDINE) PATCH T-DERMAL SCH (15:00)
[2017-10-03 15:30] VITALS: BP 156/92; PULSE 73; RESP 18
[2017-10-03] MEDS: cloNIDine HCL 0.3 MG/24 HR PATCH T-DERMAL SCH (15:34)
[2017-10-03 16:00] VITALS: BP 129/77; PULSE 66; RESP 16; TEMP 96.8; O2SAT 100
[2017-10-03 20:00] VITALS: BP 122/84; PULSE 77; RESP 20; TEMP 98.1; O2SAT 100
[2017-10-04] VITALS: BP 110/85; PULSE 66; RESP 20; TEMP 98.2; O2SAT 100
[2017-10-04 04:00] VITALS: BP 117/76; PULSE 70; RESP 20; TEMP 98.2; O2SAT 99
[2017-10-04] MEDS: NIFEdipine 20 MG CAP PEG SCH ×3 (05:45→17:10)
[2017-10-04] MEDS: hydrALAZINE HCL 50 MG TAB PEG SCH ×3 (05:45→17:10)
[2017-10-04 08:00] VITALS: BP 117/82; PULSE 69; RESP 16; TEMP 96.5; O2SAT 100
[2017-10-04] MEDS: LACTIC ACID (AMMONIUM LACTATE) 12% LOTION 225 GM BTL TOPICAL SCH ×2 (10:14→22:22)
[2017-10-04] MEDS: SENNOSIDES SYRUP 8.8 MG/5 ML CUP PEG SCH (10:14)
[2017-10-04] MEDS: NYSTATIN SUSP 500,000 U/5 ML CUP SWISH-SWAL SCH ×4 (10:14→22:22)
[2017-10-04] MEDS: METOPROLOL TARTRATE 100 MG TAB PEG SCH ×2 (10:14→22:22)
[2017-10-04] MEDS: LANSOPRAZOLE SOLUTAB 30 MG TAB G-TUBE SCH (10:14)
[2017-10-04] MEDS: LISINOPRIL 20 MG TAB PEG SCH ×2 (10:15→22:21)
[2017-10-04] MEDS: HYDROCHLOROTHIAZIDE 25 MG TAB PO SCH (10:15)
[2017-10-04 12:00] VITALS: BP 144/76; PULSE 58; RESP 16; TEMP 96.5; O2SAT 100
--- NOTE | 2017-10-04 14:40 | HHI.PR ---
Subjective Remarks Follow up hemorrhagic CVA. Patient seen and examined, lying in bed sleeping. Opens eyes to noxious and verbal stimulus. Tracking with eyes, right upper and lower extremity flaccid, follows with left upper and lower extremity. No change in clinical condition. No reports of any acute events overnight. Afebrile. VSS. Objective Vitals Vital Signs Date Time Temp Pulse Resp B/P (MAP) Pulse Ox O2 Delivery O2 Flow Rate FiO2 10/04/17 12:00 96.5 58 16 144/76 (98) 100 10/04/17 08:00 96.5 69 16 117/82 (94) 100 10/04/17 04:00 98.2 70 20 117/76 (90) 99 10/04/17 00:00 98.2 66 20 110/85 (93) 100 10/03/17 20:00 98.1 77 20 122/84 (97) 100 10/03/17 16:00 96.8 66 16 129/77 (94) 100 10/03/17 15:30 73 18 156/92 (113) I/O 10/03/17 10/03/17 10/03/17 10/04/17 10/04/17 10/04/17 07:00 15:00 23:00 07:00 15:00 23:00 Intake Total 0 ml 740 ml 400 ml 0 ml Balance 0 ml 740 ml 400 ml 0 ml Intake Oral 0 ml 0 ml 0 ml Tube Feeding 480 ml 240 ml Tube Irrigant 260 ml 160 ml # Voids 2 1 3 1 # Bowel Movements 0 0 0 Imaging Last Impressions Upper Extremity Ultrasound 08/03/17 0000 Signed Impressions: Service Date/Time: July 04:13 - CONCLUSION: Normal examination. Adi Quarles MD Chest X-Ray 05/31/17 0000 Signed Impressions: Service Date/Time: Wednesday, May 31, 2017 13:13 - CONCLUSION: 1. Improved right lower lung zone aeration with minimal residual airspace disease. Pipe Smart MD Head CT 04/25/17 0000 Signed Impressions: Service Date/Time: Tuesday, April 25, 2017 18:02 - CONCLUSION: 1. Evolving left thalamic hematoma. No new hemorrhage. Adi Quarles MD Abdomen X-Ray 04/12/17 1538 Signed Impressions: Service Date/Time: Wednesday, April 12, 2017 17:29 - CONCLUSION: Nonobstructive bowel gas pattern. Suresh Zapata MD Neck CTA 04/10/17 0000 Signed Impressions: Service Date/Time: Monday, April 10, 2017 22:28 - CONCLUSION: The internal carotid arteries are normal bilaterally. No significant atherosclerotic disease is noted. Eliud Du MD Head CTA 04/10/17 0000 Signed Impressions: Service Date/Time: Monday, April 10, 2017 22:50 - CONCLUSION: Mild dilatation of the basilar tip without discrete aneurysm. Some narrowing of the left middle cerebral branch after the bifurcation. Prominent left thalamic hemorrhage. Eliud Du MD Objective Remarks GENERAL: Well-developed, well-nourished, in no acute distress. Awake, responds minimally with head nods, tracking with eyes. Expressive aphasic, attempts to speak intermittently. HEENT: Head is normocephalic without any lesions or masses noted. Facial features are symmetric. Eyes: Conjunctivae were clear. CARDIAC: Regular rhythm, regular rate. S1/S2 are heard. 2/6 ejection, no gallops or rubs. LUNGS: Clear to auscultation bilaterally. No wheeze, rhonchi or rales. No use of accessory muscles on inspiration or expiration. ABDOMEN: Soft, nontender. Nondistended. Bowel sounds heard in all 4 quadrants. No organomegaly or masses. Negative guarding. PEG tube noted without any signs of infection, skin c/d/i, dressing intact. No erythema. EXTREMITIES: No edema, pulses are equal bilaterally. No cyanosis or clubbing NEUROLOGY: Patient is moving left upper extremity and able to move left foot. Patient unable to move right upper and lower extremity. Procedures Peg Tube placed 05/08/17 (Dr. De Los Santos) A/P Assessment and Plan Intracranial hemorrhage, 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 Neurosurgery evaluated patient states no surgical intervention Continue PT/OT/ST Case management consulted for inpatient rehabilitation, who indicated patient is homeless, no discharge disposition to inpatient rehabilitation. Psychiatry has seen and assessed patient who has indicated that patient does not have decision-making capacity in her treatment discharge plan. Palliative care has seen and assessed patient and spoken to son. Current goals of care are aggressive and patient remains a full code. Will continue to follow. Dysphagia suspect secondary to intracranial bleed Post PEG placement 05/09/17. Speech therapy indicates patient is nothing by mouth, to continue to follow and advance diet per exam Dietary consulted and made recommendations for bolus feeding. Hypertension emergency, nursing staff has been holding blood pressure medication due to parameters of low blood pressure Nifedipine 40 mg every 6 hours Lisinopril 10 mg twice daily Apresoline 50 mg every 6 hours Catapres TTS 3 patch Metoprolol 100 mg twice daily HCTZ 12.5 mg daily Apresoline, clonidine as needed Hyperglycemia Hemoglobin A1c 6.2 Glucerna 1.5 bolus tube feeding Xeroderma on bilateral feet: Lac-Hydrin 12% Lotion continued. GI Prophylaxis: Prevacid via PEG tube DVT Prophylaxis: SCDs. Chemical prophylaxis contraindicated secondary to intracranial hemorrhage. Medical records reviewed and no change in treatment plan. Continue to monitor clinically. Discharge Planning Patient is stable to be discharged to rehabilitation facility. Case management assisting. Veena Calvillo Oct 04, 2017 14:40
[2017-10-04 17:15] VITALS: BP 138/86
[2017-10-04 20:00] VITALS: BP 162/93; PULSE 83; RESP 20; TEMP 98.8; O2SAT 99
[2017-10-05] MEDS: NIFEdipine 20 MG CAP PEG SCH ×4 (00:29→18:03)
[2017-10-05] MEDS: hydrALAZINE HCL 50 MG TAB PEG SCH ×4 (00:29→18:03)
[2017-10-05] MEDS: METOPROLOL TARTRATE 100 MG TAB PEG SCH ×2 (09:02→20:30)
[2017-10-05] MEDS: HYDROCHLOROTHIAZIDE 25 MG TAB PO SCH (09:02)
[2017-10-05] MEDS: LANSOPRAZOLE SOLUTAB 30 MG TAB G-TUBE SCH (09:03)
[2017-10-05] MEDS: NYSTATIN SUSP 500,000 U/5 ML CUP SWISH-SWAL SCH ×4 (09:05→20:30)
[2017-10-05] MEDS: SENNOSIDES SYRUP 8.8 MG/5 ML CUP PEG SCH (09:05)
[2017-10-05] MEDS: LISINOPRIL 20 MG TAB PEG SCH ×2 (09:05→20:30)
[2017-10-05] MEDS: LACTIC ACID (AMMONIUM LACTATE) 12% LOTION 225 GM BTL TOPICAL SCH ×2 (09:06→20:30)
--- NOTE | 2017-10-05 16:54 | HHI.PR ---
Subjective Remarks Follow up hemorrhagic CVA. Patient seen and examined, lying in bed comfortably in nad. Awake and alert. Continued expressive aphasia. No reports of any acute events overnight. No change in clinical condition. Afebrile. VSS. Objective Vitals Vital Signs Date Time Temp Pulse Resp B/P (MAP) Pulse Ox O2 Delivery O2 Flow Rate FiO2 10/04/17 20:00 98.8 83 20 162/93 (116) 99 Manual Cuff/Auscultation 10/04/17 17:15 138/86 (103) I/O 10/04/17 10/04/17 10/04/17 10/05/17 10/05/17 10/05/17 07:00 15:00 23:00 07:00 15:00 23:00 Intake Total 0 ml 1370 ml 540 ml Balance 0 ml 1370 ml 540 ml Intake Oral 0 ml 0 ml Tube Feeding 720 ml 240 ml Tube Irrigant 650 ml Other 300 ml # Voids 1 2 4 # Bowel Movements 0 3 Imaging Last Impressions Upper Extremity Ultrasound 08/03/17 0000 Signed Impressions: Service Date/Time: July 04:13 - CONCLUSION: Normal examination. Adi Quarles MD Chest X-Ray 05/31/17 0000 Signed Impressions: Service Date/Time: Wednesday, May 31, 2017 13:13 - CONCLUSION: 1. Improved right lower lung zone aeration with minimal residual airspace disease. Pipe Smart MD Head CT 04/25/17 0000 Signed Impressions: Service Date/Time: Tuesday, April 25, 2017 18:02 - CONCLUSION: 1. Evolving left thalamic hematoma. No new hemorrhage. Adi Quarles MD Abdomen X-Ray 04/12/17 1538 Signed Impressions: Service Date/Time: Wednesday, April 12, 2017 17:29 - CONCLUSION: Nonobstructive bowel gas pattern. Suresh Zapata MD Neck CTA 04/10/17 0000 Signed Impressions: Service Date/Time: Monday, April 10, 2017 22:28 - CONCLUSION: The internal carotid arteries are normal bilaterally. No significant atherosclerotic disease is noted. Eliud Du MD Head CTA 04/10/17 0000 Signed Impressions: Service Date/Time: Monday, April 10, 2017 22:50 - CONCLUSION: Mild dilatation of the basilar tip without discrete aneurysm. Some narrowing of the left middle cerebral branch after the bifurcation. Prominent left thalamic hemorrhage. Eliud Du MD Objective Remarks GENERAL: Well-developed, well-nourished, in no acute distress. Awake, responds minimally with head nods, tracking with eyes. Expressive aphasic, attempts to speak intermittently. HEENT: Head is normocephalic without any lesions or masses noted. Facial features are symmetric. Eyes: Conjunctivae were clear. CARDIAC: Regular rhythm, regular rate. S1/S2 are heard. 2/6 ejection, no gallops or rubs. LUNGS: Clear to auscultation bilaterally. No wheeze, rhonchi or rales. No use of accessory muscles on inspiration or expiration. ABDOMEN: Soft, nontender. Nondistended. Bowel sounds heard in all 4 quadrants. No organomegaly or masses. Negative guarding. PEG tube noted without any signs of infection, skin c/d/i, dressing intact. No erythema. EXTREMITIES: No edema, pulses are equal bilaterally. No cyanosis or clubbing NEUROLOGY: Patient is moving left upper extremity and able to move left foot. Patient unable to move right upper and lower extremity. Procedures Peg Tube placed 05/08/17 (Dr. De Los Santos) A/P Assessment and Plan Intracranial hemorrhage, 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 Neurosurgery evaluated patient states no surgical intervention Continue PT/OT/ST Case management consulted for inpatient rehabilitation, who indicated patient is homeless, no discharge disposition to inpatient rehabilitation. Psychiatry has seen and assessed patient who has indicated that patient does not have decision-making capacity in her treatment discharge plan. Palliative care has seen and assessed patient and spoken to son. Current goals of care are aggressive and patient remains a full code. Will continue to follow. Dysphagia suspect secondary to intracranial bleed Post PEG placement 05/09/17. Speech therapy indicates patient is nothing by mouth, to continue to follow and advance diet per exam Dietary consulted and made recommendations for bolus feeding. Hypertension emergency, nursing staff has been holding blood pressure medication due to parameters of low blood pressure Nifedipine 40 mg every 6 hours Lisinopril 10 mg twice daily Apresoline 50 mg every 6 hours Catapres TTS 3 patch Metoprolol 100 mg twice daily HCTZ 12.5 mg daily Apresoline, clonidine as needed Hyperglycemia Hemoglobin A1c 6.2 Glucerna 1.5 bolus tube feeding Xeroderma on bilateral feet: Lac-Hydrin 12% Lotion continued. GI Prophylaxis: Prevacid via PEG tube DVT Prophylaxis: SCDs. Chemical prophylaxis contraindicated secondary to intracranial hemorrhage. Medical records reviewed and no change in treatment plan. Continue to monitor clinically. Discharge Planning Patient is stable to be discharged to rehabilitation facility. Case management assisting. Veena Calvillo Oct 05, 2017 16:54
[2017-10-05 20:00] VITALS: BP 160/88; PULSE 97; RESP 16; TEMP 98.8; O2SAT 100
[2017-10-06] MEDS: hydrALAZINE HCL 50 MG TAB PEG SCH ×4 (00:23→17:28)
[2017-10-06] MEDS: NIFEdipine 20 MG CAP PEG SCH ×4 (00:23→17:28)
[2017-10-06 08:00] VITALS: BP 100/71; PULSE 79; RESP 14; TEMP 96.6; O2SAT 98
[2017-10-06] MEDS: METOPROLOL TARTRATE 100 MG TAB PEG SCH ×2 (08:49→22:40)
[2017-10-06] MEDS: LISINOPRIL 20 MG TAB PEG SCH ×2 (08:50→22:40)
[2017-10-06] MEDS: SENNOSIDES SYRUP 8.8 MG/5 ML CUP PEG SCH (08:51)
[2017-10-06] MEDS: HYDROCHLOROTHIAZIDE 25 MG TAB PO SCH (08:51)
[2017-10-06] MEDS: LANSOPRAZOLE SOLUTAB 30 MG TAB G-TUBE SCH (08:51)
[2017-10-06] MEDS: NYSTATIN SUSP 500,000 U/5 ML CUP SWISH-SWAL SCH ×4 (08:51→22:39)
[2017-10-06] MEDS: LACTIC ACID (AMMONIUM LACTATE) 12% LOTION 225 GM BTL TOPICAL SCH ×2 (08:53→22:40)
[2017-10-06 12:00] VITALS: BP 136/83; PULSE 78; RESP 14; TEMP 96.6; O2SAT 99
[2017-10-06 16:00] VITALS: BP 143/81; PULSE 99; RESP 14; TEMP 97.8; O2SAT 100
--- NOTE | 2017-10-06 17:40 | HHI.PR ---
Subjective Remarks Follow up hemorrhagic CVA. Patient seen and examined in room, lying in bed sleeping. Awakens to voice. No change in clinical condition. No acute events. Afebrile. VSS. Objective Vitals Vital Signs Date Time Temp Pulse Resp B/P (MAP) Pulse Ox O2 Delivery O2 Flow Rate FiO2 10/06/17 16:00 97.8 99 14 143/81 (101) 100 10/06/17 12:00 96.6 78 14 136/83 (100) 99 10/06/17 08:00 96.6 79 14 100/71 (81) 98 10/05/17 20:00 98.8 97 16 160/88 (112) 100 I/O 10/05/17 10/05/17 10/05/17 10/06/17 10/06/17 10/06/17 07:00 15:00 23:00 07:00 15:00 23:00 Intake Total 540 ml 1120 ml 340 ml Balance 540 ml 1120 ml 340 ml Intake Oral 0 ml 0 ml Tube Feeding 240 ml 720 ml 240 ml Other 300 ml 400 ml 100 ml # Voids 4 3 # Bowel Movements 3 1 Imaging Last Impressions Upper Extremity Ultrasound 08/03/17 0000 Signed Impressions: Service Date/Time: July 04:13 - CONCLUSION: Normal examination. Adi Quarles MD Chest X-Ray 05/31/17 0000 Signed Impressions: Service Date/Time: Wednesday, May 31, 2017 13:13 - CONCLUSION: 1. Improved right lower lung zone aeration with minimal residual airspace disease. Pipe Smart MD Head CT 04/25/17 0000 Signed Impressions: Service Date/Time: Tuesday, April 25, 2017 18:02 - CONCLUSION: 1. Evolving left thalamic hematoma. No new hemorrhage. Adi Quarles MD Abdomen X-Ray 04/12/17 1538 Signed Impressions: Service Date/Time: Wednesday, April 12, 2017 17:29 - CONCLUSION: Nonobstructive bowel gas pattern. Suresh Zapata MD Neck CTA 04/10/17 0000 Signed Impressions: Service Date/Time: Monday, April 10, 2017 22:28 - CONCLUSION: The internal carotid arteries are normal bilaterally. No significant atherosclerotic disease is noted. Eliud Du MD Head CTA 04/10/17 0000 Signed Impressions: Service Date/Time: Monday, April 10, 2017 22:50 - CONCLUSION: Mild dilatation of the basilar tip without discrete aneurysm. Some narrowing of the left middle cerebral branch after the bifurcation. Prominent left thalamic hemorrhage. Eliud Du MD Objective Remarks GENERAL: Well-developed, well-nourished, in no acute distress. Awake, responds minimally with head nods, tracking with eyes. Expressive aphasic, attempts to speak intermittently. HEENT: Head is normocephalic without any lesions or masses noted. Facial features are symmetric. Eyes: Conjunctivae were clear. CARDIAC: Regular rhythm, regular rate. S1/S2 are heard. 2/6 ejection, no gallops or rubs. LUNGS: Clear to auscultation bilaterally. No wheeze, rhonchi or rales. No use of accessory muscles on inspiration or expiration. ABDOMEN: Soft, nontender. Nondistended. Bowel sounds heard in all 4 quadrants. No organomegaly or masses. Negative guarding. PEG tube noted without any signs of infection, skin c/d/i, dressing intact. No erythema. EXTREMITIES: No edema, pulses are equal bilaterally. No cyanosis or clubbing NEUROLOGY: Patient is moving left upper extremity and able to move left foot. Patient unable to move right upper and lower extremity. Procedures Peg Tube placed 05/08/17 (Dr. De Los Santos) A/P Assessment and Plan Intracranial hemorrhage, 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 Neurosurgery evaluated patient states no surgical intervention Continue PT/OT/ST Case management consulted for inpatient rehabilitation, who indicated patient is homeless, no discharge disposition to inpatient rehabilitation. Psychiatry has seen and assessed patient who has indicated that patient does not have decision-making capacity in her treatment discharge plan. Palliative care has seen and assessed patient and spoken to son. Current goals of care are aggressive and patient remains a full code. Will continue to follow. Dysphagia suspect secondary to intracranial bleed Post PEG placement 05/09/17. Speech therapy indicates patient is nothing by mouth, to continue to follow and advance diet per exam Dietary consulted and made recommendations for bolus feeding. Hypertension emergency, nursing staff has been holding blood pressure medication due to parameters of low blood pressure Nifedipine 40 mg every 6 hours Lisinopril 10 mg twice daily Apresoline 50 mg every 6 hours Catapres TTS 3 patch Metoprolol 100 mg twice daily HCTZ 12.5 mg daily Apresoline, clonidine as needed Hyperglycemia Hemoglobin A1c 6.2 Glucerna 1.5 bolus tube feeding Xeroderma on bilateral feet: Lac-Hydrin 12% Lotion continued. GI Prophylaxis: Prevacid via PEG tube DVT Prophylaxis: SCDs. Chemical prophylaxis contraindicated secondary to intracranial hemorrhage. Medical records reviewed and no change in treatment plan. Continue to monitor clinically. Discharge Planning Patient is stable to be discharged to rehabilitation facility. Case management assisting. Veena Calvillo Oct 06, 2017 17:40
[2017-10-06 20:39] VITALS: BP 129/79; PULSE 69; RESP 16; TEMP 97.9; O2SAT 98
[2017-10-07 00:54] VITALS: BP 131/90; PULSE 72; RESP 18; TEMP 98; O2SAT 95
[2017-10-07] MEDS: hydrALAZINE HCL 50 MG TAB PEG SCH ×4 (05:49→18:30)
[2017-10-07] MEDS: NIFEdipine 20 MG CAP PEG SCH ×4 (05:50→18:30)
[2017-10-07 07:50] VITALS: BP 102/62; PULSE 97; RESP 20; TEMP 98; O2SAT 95
[2017-10-07] MEDS: METOPROLOL TARTRATE 100 MG TAB PEG SCH ×2 (09:33→22:18)
[2017-10-07] MEDS: HYDROCHLOROTHIAZIDE 25 MG TAB PO SCH (09:34)
[2017-10-07] MEDS: LANSOPRAZOLE SOLUTAB 30 MG TAB G-TUBE SCH (09:34)
[2017-10-07] MEDS: NYSTATIN SUSP 500,000 U/5 ML CUP SWISH-SWAL SCH ×4 (09:34→21:00)
[2017-10-07] MEDS: SENNOSIDES SYRUP 8.8 MG/5 ML CUP PEG SCH (09:34)
[2017-10-07] MEDS: LISINOPRIL 20 MG TAB PEG SCH ×2 (09:34→22:19)
[2017-10-07] MEDS: LACTIC ACID (AMMONIUM LACTATE) 12% LOTION 225 GM BTL TOPICAL SCH ×2 (09:43→22:20)
[2017-10-07 11:50] VITALS: BP 119/83; PULSE 71; RESP 20; TEMP 97.2; O2SAT 97
[2017-10-07 15:00] VITALS: BP 122/77; PULSE 83; RESP 20; TEMP 97; O2SAT 99
--- NOTE | 2017-10-07 17:07 | HHI.PR ---
Subjective Remarks Follow up hemorrhagic CVA. Patient seen and examined, lying in bed asleep. Awakens to voice. No changes in patient condition. No reports of events overnight. Objective Vitals Vital Signs Date Time Temp Pulse Resp B/P (MAP) Pulse Ox O2 Delivery O2 Flow Rate FiO2 10/07/17 15:00 97.0 83 20 122/77 (92) 99 10/07/17 11:50 97.2 71 20 119/83 (95) 97 10/07/17 07:50 98.0 97 20 102/62 (75) 95 10/07/17 04:02 10/07/17 00:54 98.0 72 18 131/90 (104) 95 10/06/17 20:39 97.9 69 16 129/79 (96) 98 I/O 10/06/17 10/06/17 10/06/17 10/07/17 10/07/17 10/07/17 07:00 15:00 23:00 07:00 15:00 23:00 Intake Total 340 ml Balance 340 ml Tube Feeding 240 ml Other 100 ml # Voids 2 1 # Bowel Movements 1 Imaging Last Impressions Upper Extremity Ultrasound 08/03/17 0000 Signed Impressions: Service Date/Time: July 04:13 - CONCLUSION: Normal examination. Adi Quarles MD Chest X-Ray 05/31/17 0000 Signed Impressions: Service Date/Time: Wednesday, May 31, 2017 13:13 - CONCLUSION: 1. Improved right lower lung zone aeration with minimal residual airspace disease. Pipe Smart MD Head CT 04/25/17 0000 Signed Impressions: Service Date/Time: Tuesday, April 25, 2017 18:02 - CONCLUSION: 1. Evolving left thalamic hematoma. No new hemorrhage. Adi Quarles MD Abdomen X-Ray 04/12/17 1538 Signed Impressions: Service Date/Time: Wednesday, April 12, 2017 17:29 - CONCLUSION: Nonobstructive bowel gas pattern. Suresh Zapata MD Neck CTA 04/10/17 0000 Signed Impressions: Service Date/Time: Monday, April 10, 2017 22:28 - CONCLUSION: The internal carotid arteries are normal bilaterally. No significant atherosclerotic disease is noted. Eliud Du MD Head CTA 04/10/17 0000 Signed Impressions: Service Date/Time: Monday, April 10, 2017 22:50 - CONCLUSION: Mild dilatation of the basilar tip without discrete aneurysm. Some narrowing of the left middle cerebral branch after the bifurcation. Prominent left thalamic hemorrhage. Eliud Du MD Objective Remarks GENERAL: Well-developed, well-nourished, in no acute distress. Awake, responds minimally with head nods, tracking with eyes. Expressive aphasic, attempts to speak intermittently. HEENT: Head is normocephalic without any lesions or masses noted. Facial features are symmetric. Eyes: Conjunctivae were clear. CARDIAC: Regular rhythm, regular rate. S1/S2 are heard. 2/6 ejection, no gallops or rubs. LUNGS: Clear to auscultation bilaterally. No wheeze, rhonchi or rales. No use of accessory muscles on inspiration or expiration. ABDOMEN: Soft, nontender. Nondistended. Bowel sounds heard in all 4 quadrants. No organomegaly or masses. Negative guarding. PEG tube noted without any signs of infection, skin c/d/i, dressing intact. No erythema. EXTREMITIES: No edema, pulses are equal bilaterally. No cyanosis or clubbing NEUROLOGY: Patient is moving left upper extremity and able to move left foot. Patient unable to move right upper and lower extremity. Procedures Peg Tube placed 05/08/17 (Dr. De Los Santos) A/P Assessment and Plan Intracranial hemorrhage, 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 Neurosurgery evaluated patient states no surgical intervention Continue PT/OT/ST Case management consulted for inpatient rehabilitation, who indicated patient is homeless, no discharge disposition to inpatient rehabilitation. Psychiatry has seen and assessed patient who has indicated that patient does not have decision-making capacity in her treatment discharge plan. Palliative care has seen and assessed patient and spoken to son. Current goals of care are aggressive and patient remains a full code. Will continue to follow. Dysphagia suspect secondary to intracranial bleed Post PEG placement 05/09/17. Speech therapy indicates patient is nothing by mouth, to continue to follow and advance diet per exam Dietary consulted and made recommendations for bolus feeding. Hypertension emergency, nursing staff has been holding blood pressure medication due to parameters of low blood pressure Nifedipine 40 mg every 6 hours Lisinopril 10 mg twice daily Apresoline 50 mg every 6 hours Catapres TTS 3 patch Metoprolol 100 mg twice daily HCTZ 12.5 mg daily Apresoline, clonidine as needed Hyperglycemia Hemoglobin A1c 6.2 Glucerna 1.5 bolus tube feeding Xeroderma on bilateral feet: Lac-Hydrin 12% Lotion continued. GI Prophylaxis: Prevacid via PEG tube DVT Prophylaxis: SCDs. Chemical prophylaxis contraindicated secondary to intracranial hemorrhage. Medical records reviewed and no change in treatment plan. Continue to monitor clinically. Discharge Planning Patient is stable to be discharged to rehabilitation facility. Case management assisting. Veena Calvillo Oct 07, 2017 17:07
[2017-10-07 20:00] VITALS: BP 128/72; PULSE 94; RESP 20; TEMP 99.4; O2SAT 100
[2017-10-08] VITALS: BP 113/72; PULSE 82; RESP 20; TEMP 97; O2SAT 96
[2017-10-08] MEDS: hydrALAZINE HCL 50 MG TAB PEG SCH ×4 (00:42→18:37)
[2017-10-08] MEDS: NIFEdipine 20 MG CAP PEG SCH ×4 (00:42→18:37)
[2017-10-08 04:00] VITALS: BP 157/72; PULSE 94; RESP 20; TEMP 99.2; O2SAT 93
[2017-10-08 08:00] VITALS: BP 127/86; PULSE 100; RESP 16; TEMP 98.8; O2SAT 96
[2017-10-08] MEDS: SENNOSIDES SYRUP 8.8 MG/5 ML CUP PEG SCH (09:20)
[2017-10-08] MEDS: NYSTATIN SUSP 500,000 U/5 ML CUP SWISH-SWAL SCH ×4 (09:20→20:59)
[2017-10-08] MEDS: LANSOPRAZOLE SOLUTAB 30 MG TAB G-TUBE SCH (09:21)
[2017-10-08] MEDS: LACTIC ACID (AMMONIUM LACTATE) 12% LOTION 225 GM BTL TOPICAL SCH ×2 (09:21→20:59)
[2017-10-08] MEDS: LISINOPRIL 20 MG TAB PEG SCH ×2 (09:21→20:59)
[2017-10-08] MEDS: METOPROLOL TARTRATE 100 MG TAB PEG SCH ×2 (09:21→20:56)
[2017-10-08] MEDS: HYDROCHLOROTHIAZIDE 25 MG TAB PO SCH (09:21)
--- NOTE | 2017-10-08 11:12 | HHI.PR ---
Subjective Remarks Follow up hemorrhagic CVA. Patient seen and examined awake and alert. Does not appear to be in any stress. No change in clinical condition. Spoke to RN, no new acute changes overnight. VSS. Afrebile. Objective Vitals Vital Signs Date Time Temp Pulse Resp B/P (MAP) Pulse Ox O2 Delivery O2 Flow Rate FiO2 10/08/17 08:00 98.8 100 16 127/86 (100) 96 10/08/17 04:00 99.2 94 20 157/72 (100) 93 10/08/17 00:00 97.0 82 20 113/72 (86) 96 10/07/17 20:00 99.4 94 20 128/72 (90) 100 10/07/17 15:00 97.0 83 20 122/77 (92) 99 10/07/17 11:50 97.2 71 20 119/83 (95) 97 I/O 10/07/17 10/07/17 10/07/17 10/08/17 10/08/17 10/08/17 07:00 15:00 23:00 07:00 15:00 23:00 Intake Total 0 ml 340 ml Balance 0 ml 340 ml Intake Oral 0 ml Tube Feeding 240 ml Other 100 ml # Voids 1 3 1 1 # Bowel Movements 0 Imaging Last Impressions Upper Extremity Ultrasound 08/03/17 0000 Signed Impressions: Service Date/Time: July 04:13 - CONCLUSION: Normal examination. Adi Quarles MD Chest X-Ray 05/31/17 0000 Signed Impressions: Service Date/Time: Wednesday, May 31, 2017 13:13 - CONCLUSION: 1. Improved right lower lung zone aeration with minimal residual airspace disease. Pipe Smart MD Head CT 04/25/17 0000 Signed Impressions: Service Date/Time: Tuesday, April 25, 2017 18:02 - CONCLUSION: 1. Evolving left thalamic hematoma. No new hemorrhage. Adi Quarles MD Abdomen X-Ray 04/12/17 1538 Signed Impressions: Service Date/Time: Wednesday, April 12, 2017 17:29 - CONCLUSION: Nonobstructive bowel gas pattern. Suresh Zapata MD Neck CTA 04/10/17 0000 Signed Impressions: Service Date/Time: Monday, April 10, 2017 22:28 - CONCLUSION: The internal carotid arteries are normal bilaterally. No significant atherosclerotic disease is noted. Eliud Du MD Head CTA 04/10/17 0000 Signed Impressions: Service Date/Time: Monday, April 10, 2017 22:50 - CONCLUSION: Mild dilatation of the basilar tip without discrete aneurysm. Some narrowing of the left middle cerebral branch after the bifurcation. Prominent left thalamic hemorrhage. Eliud Du MD Objective Remarks GENERAL: Well-developed, well-nourished, in no acute distress. Awake, responds minimally with head nods, tracking with eyes. Expressive aphasic, attempts to speak intermittently. HEENT: Head is normocephalic without any lesions or masses noted. Facial features are symmetric. Eyes: Conjunctivae were clear. CARDIAC: Regular rhythm, regular rate. S1/S2 are heard. 2/6 ejection, no gallops or rubs. LUNGS: Clear to auscultation bilaterally. No wheeze, rhonchi or rales. No use of accessory muscles on inspiration or expiration. ABDOMEN: Soft, nontender. Nondistended. Bowel sounds heard in all 4 quadrants. No organomegaly or masses. Negative guarding. PEG tube noted without any signs of infection, skin c/d/i, dressing intact. No erythema. EXTREMITIES: No edema, pulses are equal bilaterally. No cyanosis or clubbing NEUROLOGY: Patient is moving left upper extremity and able to move left foot. Patient unable to move right upper and lower extremity. Procedures Peg Tube placed 05/08/17 (Dr. De Los Santos) A/P Assessment and Plan Intracranial hemorrhage, 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 Neurosurgery evaluated patient states no surgical intervention Continue PT/OT/ST Case management consulted for inpatient rehabilitation, who indicated patient is homeless, no discharge disposition to inpatient rehabilitation. Psychiatry has seen and assessed patient who has indicated that patient does not have decision-making capacity in her treatment discharge plan. Palliative care has seen and assessed patient and spoken to son. Current goals of care are aggressive and patient remains a full code. Will continue to follow. Dysphagia suspect secondary to intracranial bleed Post PEG placement 05/09/17. Speech therapy indicates patient is nothing by mouth, to continue to follow and advance diet per exam Dietary consulted and made recommendations for bolus feeding. Hypertension emergency, nursing staff has been holding blood pressure medication due to parameters of low blood pressure Nifedipine 40 mg every 6 hours Lisinopril 10 mg twice daily Apresoline 50 mg every 6 hours Catapres TTS 3 patch Metoprolol 100 mg twice daily HCTZ 12.5 mg daily Apresoline, clonidine as needed Hyperglycemia Hemoglobin A1c 6.2 Glucerna 1.5 bolus tube feeding Xeroderma on bilateral feet: Lac-Hydrin 12% Lotion continued. GI Prophylaxis: Prevacid via PEG tube DVT Prophylaxis: SCDs. Chemical prophylaxis contraindicated secondary to intracranial hemorrhage. Medical records reviewed and no change in treatment plan. Continue to monitor clinically. Discharge Planning Patient is stable to be discharged to rehabilitation facility. Case management assisting. Veena Calvillo Oct 08, 2017 11:12
[2017-10-08 12:00] VITALS: BP 101/83; PULSE 91; RESP 16; TEMP 98.3; O2SAT 97
[2017-10-08 16:00] VITALS: BP 127/86; PULSE 89; RESP 16; TEMP 99.3; O2SAT 96
[2017-10-08 20:00] VITALS: BP 117/64; PULSE 124; RESP 16; TEMP 98.5; O2SAT 96
[2017-10-09] MEDS: hydrALAZINE HCL 50 MG TAB PEG SCH ×4 (00:40→17:37)
[2017-10-09] MEDS: NIFEdipine 20 MG CAP PEG SCH ×4 (00:40→17:37)
[2017-10-09 09:30] VITALS: BP 102/71; PULSE 101; RESP 18; TEMP 101.2; O2SAT 97
[2017-10-09] MEDS: ACETAMINOPHEN 325 MG TAB PEG PRN (09:36)
[2017-10-09] MEDS: SENNOSIDES SYRUP 8.8 MG/5 ML CUP PEG SCH (09:36)
[2017-10-09] MEDS: LANSOPRAZOLE SOLUTAB 30 MG TAB G-TUBE SCH (09:36)
[2017-10-09] MEDS: METOPROLOL TARTRATE 100 MG TAB PEG SCH ×2 (09:36→21:16)
[2017-10-09] MEDS: NYSTATIN SUSP 500,000 U/5 ML CUP SWISH-SWAL SCH ×4 (09:37→21:16)
[2017-10-09] MEDS: HYDROCHLOROTHIAZIDE 25 MG TAB PO SCH (09:37)
[2017-10-09] MEDS: LISINOPRIL 20 MG TAB PEG SCH ×2 (09:37→21:16)
[2017-10-09] MEDS: LACTIC ACID (AMMONIUM LACTATE) 12% LOTION 225 GM BTL TOPICAL SCH ×2 (09:37→21:16)
[2017-10-09 12:00] VITALS: BP 101/66; PULSE 77; RESP 16; TEMP 98.9; O2SAT 100
--- NOTE | 2017-10-09 15:31 | HHI.PR ---
Subjective Remarks Follow up hemorrhagic CVA. Patient seen and examined, lying in bed awake. Denies any pain. Patient follows commands in left upper and lower extremity, right side flaccid. No reports of any acute events overnight. TMAX 101.2 temp overnight. Reports of developing pressure wound on coccyx. Assessed and documented. Wound care consulted, awaiting recommendations. Objective Vitals Vital Signs Date Time Temp Pulse Resp B/P (MAP) Pulse Ox O2 Delivery O2 Flow Rate FiO2 10/09/17 12:00 98.9 77 16 101/66 (78) 100 10/09/17 09:30 101.2 101 18 102/71 (81) 97 10/08/17 20:00 98.5 124 16 117/64 (81) 96 10/08/17 16:00 99.3 89 16 127/86 (100) 96 I/O 10/08/17 10/08/17 10/08/17 10/09/17 10/09/17 10/09/17 07:00 15:00 23:00 07:00 15:00 23:00 Intake Total 0 ml 740 ml 400 ml Balance 0 ml 740 ml 400 ml Intake Oral 0 ml 0 ml Tube Feeding 480 ml 240 ml Other 260 ml 160 ml # Voids 1 2 2 3 # Bowel Movements 1 2 Imaging Last Impressions Upper Extremity Ultrasound 08/03/17 0000 Signed Impressions: Service Date/Time: July 04:13 - CONCLUSION: Normal examination. Adi Quarles MD Chest X-Ray 05/31/17 0000 Signed Impressions: Service Date/Time: Wednesday, May 31, 2017 13:13 - CONCLUSION: 1. Improved right lower lung zone aeration with minimal residual airspace disease. Pipe Smart MD Head CT 04/25/17 0000 Signed Impressions: Service Date/Time: Tuesday, April 25, 2017 18:02 - CONCLUSION: 1. Evolving left thalamic hematoma. No new hemorrhage. Adi Quarles MD Abdomen X-Ray 04/12/17 1538 Signed Impressions: Service Date/Time: Wednesday, April 12, 2017 17:29 - CONCLUSION: Nonobstructive bowel gas pattern. Suresh Zapata MD Neck CTA 04/10/17 0000 Signed Impressions: Service Date/Time: Monday, April 10, 2017 22:28 - CONCLUSION: The internal carotid arteries are normal bilaterally. No significant atherosclerotic disease is noted. Eliud Du MD Head CTA 04/10/17 0000 Signed Impressions: Service Date/Time: Monday, April 10, 2017 22:50 - CONCLUSION: Mild dilatation of the basilar tip without discrete aneurysm. Some narrowing of the left middle cerebral branch after the bifurcation. Prominent left thalamic hemorrhage. Eliud Du MD Objective Remarks GENERAL: Well-developed, well-nourished, in no acute distress. Awake, responds minimally with head nods, tracking with eyes. Expressive aphasic, attempts to speak intermittently. HEENT: Head is normocephalic without any lesions or masses noted. Facial features are symmetric. Eyes: Conjunctivae were clear. Skin on sacrum macerated , 4x4 in size, Mepilex. Continue to monitor. CARDIAC: Regular rhythm, regular rate. S1/S2 are heard. 2/6 ejection, no gallops or rubs. LUNGS: Clear to auscultation bilaterally. No wheeze, rhonchi or rales. No use of accessory muscles on inspiration or expiration. ABDOMEN: Soft, nontender. Nondistended. Bowel sounds heard in all 4 quadrants. No organomegaly or masses. Negative guarding. PEG tube noted without any signs of infection, skin c/d/i, dressing intact. No erythema. EXTREMITIES: No edema, pulses are equal bilaterally. No cyanosis or clubbing NEUROLOGY: Patient is moving left upper extremity and able to move left foot. Patient unable to move right upper and lower extremity. Procedures Peg Tube placed 05/08/17 (Dr. De Los Santos) A/P Assessment and Plan Intracranial hemorrhage, 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 Neurosurgery evaluated patient states no surgical intervention Continue PT/OT/ST Case management consulted for inpatient rehabilitation, who indicated patient is homeless, no discharge disposition to inpatient rehabilitation. Psychiatry has seen and assessed patient who has indicated that patient does not have decision-making capacity in her treatment discharge plan. Palliative care has seen and assessed patient and spoken to son. Current goals of care are aggressive and patient remains a full code. Will continue to follow. Sacral wound Skin on sacrum macerated. Area measured 4x4 cm in size. Continue Mepilex for now. Encouraged q2h repositioned. Continue special mattress. Awaiting wound care to assess, appreciate further recommendations and input. Dysphagia suspect secondary to intracranial bleed Post PEG placement 05/09/17. Speech therapy indicates patient is nothing by mouth, to continue to follow and advance diet per exam Dietary consulted and made recommendations for bolus feeding. Hypertension emergency, nursing staff has been holding blood pressure medication due to parameters of low blood pressure Nifedipine 40 mg every 6 hours Lisinopril 10 mg twice daily Apresoline 50 mg every 6 hours Catapres TTS 3 patch Metoprolol 100 mg twice daily HCTZ 12.5 mg daily Apresoline, clonidine as needed Hyperglycemia Hemoglobin A1c 6.2 Glucerna 1.5 bolus tube feeding Xeroderma on bilateral feet: Lac-Hydrin 12% Lotion continued. GI Prophylaxis: Prevacid via PEG tube DVT Prophylaxis: SCDs. Chemical prophylaxis contraindicated secondary to intracranial hemorrhage. Medical records reviewed and no change in treatment plan. Continue to monitor clinically. Discharge Planning Patient is stable to be discharged to rehabilitation facility. Case management assisting. Veena Calvillo Oct 09, 2017 15:31
[2017-10-09 16:00] VITALS: BP 115/75; PULSE 82; RESP 18; TEMP 98.4; O2SAT 99
[2017-10-09 20:00] VITALS: BP 111/62; PULSE 108; RESP 16; TEMP 97.7; O2SAT 96
[2017-10-10] VITALS: TEMP 99
[2017-10-10] MEDS: hydrALAZINE HCL 50 MG TAB PEG SCH ×4 (00:55→18:41)
[2017-10-10] MEDS: NIFEdipine 20 MG CAP PEG SCH ×4 (00:56→18:39)
[2017-10-10 04:00] VITALS: BP 100/88; PULSE 107; RESP 16; TEMP 101.4; O2SAT 100
[2017-10-10] MEDS: ACETAMINOPHEN 325 MG TAB PEG PRN (05:30)
[2017-10-10 06:23] LABS: AUTOMATED NEUTROPHIL # 9.2 TH/MM3 (1.8-7.7); BASOPHIL % 0.2 % (0.0-2.0); EOSINOPHIL # 0.1 TH/MM3 (0-0.4); EOSINOPHIL % 0.6 % (0.0-4.0); HEMATOCRIT 33.3 % (35.0-46.0); LYMPH % 12.5 % (9.0-44.0); LYMPHOCYTE # 1.5 TH/MM3 (1.0-4.8); MEAN CELL VOLUME 84.3 FL (80.0-100.0); MEAN CORPUSCULAR HEMOGLOBIN 27.9 PG (27.0-34.0); MEAN CORPUSCULAR HGB CONC 33.1 % (32.0-36.0); MEAN PLATELET VOLUME 9.5 FL (7.0-11.0); MONO % 8.1 % (0.0-8.0); NEUT % 78.6 % (16.0-70.0); PLATELET COUNT 238 TH/MM3 (150-450); RED BLOOD COUNT 3.95 MIL/MM3 (4.00-5.30); RED CELL DISTRIBUTION WIDTH 13.8 % (11.6-17.2); WHITE BLOOD COUNT 11.8 TH/MM3 (4.0-11.0)
[2017-10-10 06:34] LABS: BICARBONATE 29.7 MEQ/L (21.0-32.0); CALCIUM 8.4 MG/DL (8.5-10.1)
[2017-10-10 06:38] LABS: CREATININE 0.42 MG/DL (0.50-1.00)
[2017-10-10 08:00] VITALS: BP 94/55; PULSE 92; RESP 18; TEMP 98; O2SAT 94
[2017-10-10] MEDS ORDERED: Vancomycin Consult Pharmacy 1 EA OTHER SCH (09:00)
--- NOTE | 2017-10-10 09:27 | PD.WCN.NOT ---
Wound Consult Description: Received consult from Veena Calvillo for sacrum/ coccyx open area pressure ulcer. Communicated with: GUS Kelley and Jodi Yates RN [facility]. Recommendation: 1.Please consult plastics for debridement, or if not available consult general surgery. 2.Please paint wound to sacrococcygeal area with povidone-iodine BID and cover wound with dry cover dressing until seen by plastics or general surgery. Please apply skin prep to periwound before apply dry cover dressing. 3. Turn patient every 2 hours and PRN for comfort and offloading of pressure from john prominences. Additional Information: Patient seen on [facility] 3rd floor for pressure ulcer evaluation of sacrum/ coccyx.Patient is noted laying on advanced 4 bed from [facility]. Tube feeding was placed on hold before lowering head of bed. Turned patient with maximum assistance to R side with the assistance of Yon GARCIA, software writer and [employer]LINE DISPATCH[employer]. GUS Kelley in room during wound assessment. Removed brief to reveal dressing on sacral area. Removed adhesive foam dressing to reveal wound. Wound presents with ~85% thin adherent black eschar and ~15% pink tissue. Wound drainage is scant and patrick with foul odor. Periwound presents with induration, erythema and heat from 1 to 9 o'clock. Wound measures 4 cm x 4 cm x eschar.Cleansed wound with wound cleanser and painted with povidone iodine swabs. Skin prep was applied to periwound before applying adhesive foam dressing that was on hand. preferred bordered gauze 6 x6 dressing for BID dressing changes until seen by plastics or general surgery for debridement. Romelia Liz [facility] Oct 10, 2017 09:27
[2017-10-10] MEDS ORDERED: POTASSIUM CHLORIDE 25 MEQ EFFERVESCENT TAB PEG ONE (09:30)
[2017-10-10] MEDS ORDERED: VANCOMYCIN INJ 1,000 MG in SODIUM CHLOR 0.9% 250 ML INJ 250 ML IV ONE (10:00)
[2017-10-10] MEDS: LISINOPRIL 20 MG TAB PEG SCH ×2 (10:02→21:57)
[2017-10-10] MEDS: HYDROCHLOROTHIAZIDE 25 MG TAB PO SCH (10:04)
[2017-10-10] MEDS: NYSTATIN SUSP 500,000 U/5 ML CUP SWISH-SWAL SCH ×4 (10:04→21:58)
[2017-10-10] MEDS: LANSOPRAZOLE SOLUTAB 30 MG TAB G-TUBE SCH (10:04)
[2017-10-10] MEDS: METOPROLOL TARTRATE 100 MG TAB PEG SCH ×2 (10:04→21:57)
[2017-10-10] MEDS: SENNOSIDES SYRUP 8.8 MG/5 ML CUP PEG SCH (10:04)
[2017-10-10] MEDS: LACTIC ACID (AMMONIUM LACTATE) 12% LOTION 225 GM BTL TOPICAL SCH ×2 (11:27→21:00)
--- NOTE | 2017-10-10 11:30 | HHI.PR ---
Subjective Remarks Patient seen and examined today for follow-up on hemorrhagic CVA, sacral decubitus. Patient still febrile overnight. Blood cultures have been ascertained. We'll need to evaluate for sepsis. Likely secondary to sacral decubitus ulceration. Objective Vitals Vital Signs Date Time Temp Pulse Resp B/P (MAP) Pulse Ox O2 Delivery O2 Flow Rate FiO2 10/10/17 08:00 98.0 92 18 94/55 (68) 94 10/10/17 04:00 101.4 107 16 100/88 (92) 100 10/10/17 00:00 99.0 10/09/17 20:00 97.7 108 16 111/62 (78) 96 10/09/17 16:00 98.4 82 18 115/75 (88) 99 10/09/17 12:00 98.9 77 16 101/66 (78) 100 I/O 10/09/17 10/09/17 10/09/17 10/10/17 10/10/17 10/10/17 07:00 15:00 23:00 07:00 15:00 23:00 Intake Total 1500 ml Balance 1500 ml Intake Oral 0 ml Tube Feeding 960 ml Tube Irrigant 440 ml Other 100 ml # Voids 3 0 2 # Bowel Movements 0 Result Diagram: 10/10/17 0500 10/10/17 0500 Objective Remarks GENERAL: Well-developed, well-nourished, in no acute distress. Awake, responds minimally with head nods. Trying to speak HEENT: Head is normocephalic without any lesions or masses noted. Facial features are symmetric. Eyes: Conjunctivae were clear. CARDIAC: Regular rhythm, regular rate. S1/S2 are heard. 2/6 ejection, no gallops or rubs. LUNGS: Clear to auscultation bilaterally. No wheeze, rhonchi or rales. No use of accessory muscles on inspiration or expiration. ABDOMEN: Soft, nontender. Nondistended. Bowel sounds heard in all 4 quadrants. No organomegaly or masses. Negative rebound, negative guarding, PEG tube noted without any signs of infection EXTREMITIES: No edema, pulses are equal bilaterally. No cyanosis or clubbing NEUROLOGY: Patient is moving left upper extremity and able to move left foot. Patient unable to move right upper and lower extremity. SKIN: Patient has a 4 cm x 4 cm sacral decubitus with black eschar. There is induration and granulation noted moving down her gluteal crease bilaterally. Procedures Peg Tube placed 05/08/17 (Dr. De Los Santos) Urinary Catheter: No Vascular Central Line Catheter: No A/P Assessment and Plan Sacral decubitus Wound care nurse evaluated patient in a recommendations Will need plastic surgery/general surgery for consultation to evaluate and perform debridement Febrile illness Likely secondary to sacral decubitus infection Start vancomycin IV/Zosyn IV Continue monitor for infection Obtain urinalysis Intracranial hemorrhage, 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 Neurosurgery evaluated patient states no surgical intervention Continue PT/OT/ST Consulted as indicated patient is stable to be discharged to rehabilitation facility Case management consulted for inpatient rehabilitation, who indicated patient is homeless, no discharge disposition to inpatient rehabilitation Palliative care was consulted for recommendations. They recommended, see evaluation which has been done. Awaiting further recommendations Psychiatry indicates that the patient does not have decision-making capacity to participate in her treatment or discharge plan. Dysphagia suspect secondary to intracranial bleed, Post PEG placement 05/09/17. 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 GI Prophylaxis: Prevacid via PEG tube DVT Prophylaxis: Sequential compression devices, chemical prophylaxis contraindicated secondary to intracranial hemorrhage Discharge Planning Case management for discharge planning Kayden Kelley Oct 10, 2017 11:29
[2017-10-10 12:00] VITALS: BP 110/60; PULSE 88; RESP 18; TEMP 99; O2SAT 96
[2017-10-10] MEDS ORDERED: PIPERACIL-TAZO 3.375 GM PREMIX 50 ML IV SCH (12:00)
[2017-10-10] MEDS: REMOVE OLD CATAPRES (CLONIDINE) PATCH T-DERMAL SCH (15:00)
[2017-10-10] MEDS: PIPERACIL-TAZO 3.375 GM PREMIX 50 ML IV SCH ×2 (15:29→18:47)
[2017-10-10] MEDS: cloNIDine HCL 0.3 MG/24 HR PATCH T-DERMAL SCH (15:30)
[2017-10-10 16:00] VITALS: BP 105/70; PULSE 86; RESP 18; TEMP 99; O2SAT 96
[2017-10-10] MEDS: VANCOMYCIN INJ 1,250 MG in SODIUM CHLOR 0.9% 250 ML INJ 250 ML IV SCH (18:48)
[2017-10-10 20:18] VITALS: BP 121/77; PULSE 113; RESP 18; TEMP 101.8; O2SAT 97
[2017-10-10 22:18] LABS: BILIRUBIN, URINE NEG (NEG); BLOOD, URINE SMALL (NEG); GLUCOSE,URINE NEG (NEG); KETONE, URINE TRACE mg/dL (NEG); NITRITE,URINE POS (NEG); URINE LEUKOCYTE ESTERASE TRACE (NEG)
[2017-10-10 22:21] LABS: URINE COLOR YELLOW (YELLW/STRAW)
[2017-10-10 22:23] LABS: RBC, URINE 0-3 /hpf (0-3); SQUAMOUS EPITHELIAL CELL URINE 0-5 /hpf (0-5)
[2017-10-10 22:24] LABS: BACTERIA, URINE OCC /hpf
[2017-10-11] MEDS: PIPERACIL-TAZO 3.375 GM PREMIX 50 ML IV SCH ×5 (00:23→23:49)
[2017-10-11] MEDS: NIFEdipine 20 MG CAP PEG SCH ×4 (00:24→17:42)
[2017-10-11] MEDS: hydrALAZINE HCL 50 MG TAB PEG SCH ×4 (00:24→17:42)
[2017-10-11] MEDS: VANCOMYCIN INJ 1,250 MG in SODIUM CHLOR 0.9% 250 ML INJ 250 ML IV SCH ×2 (06:28→18:08)
[2017-10-11 06:51] LABS: CREATININE 0.46 MG/DL (0.50-1.00)
[2017-10-11 07:50] VITALS: BP 101/67; PULSE 107; RESP 20; TEMP 100.9; O2SAT 100
--- NOTE | 2017-10-11 08:57 | HHI.PR ---
Subjective Remarks Patient seen and examined today for follow-up on hemorrhagic CVA, sacral decubitus. Patient still febrile. cultures pending thus far. Objective Vitals Vital Signs Date Time Temp Pulse Resp B/P (MAP) Pulse Ox O2 Delivery O2 Flow Rate FiO2 10/11/17 07:50 100.9 107 20 101/67 (78) 100 10/10/17 20:18 101.8 113 18 121/77 (92) 97 10/10/17 16:00 99.0 86 18 105/70 (82) 96 10/10/17 12:00 99.0 88 18 110/60 (77) 96 I/O 10/10/17 10/10/17 10/10/17 10/11/17 10/11/17 10/11/17 07:00 15:00 23:00 07:00 15:00 23:00 Intake Total 1120 ml 590 ml 710 ml Output Total 1 ml 775 ml Balance 1120 ml 589 ml -65 ml Intake Oral 0 ml IV Total 250 ml 50 ml Tube Feeding 720 ml 240 ml 240 ml Other 400 ml 100 ml 420 ml Output Urine Total 775 ml Stool Total 1 ml # Voids 2 2 # Bowel Movements 0 0 Result Diagram: 10/10/17 0500 10/11/17 0545 Objective Remarks GENERAL: Well-developed, well-nourished, in no acute distress. Awake, responds minimally with head nods. Trying to speak HEENT: Head is normocephalic without any lesions or masses noted. Facial features are symmetric. Eyes: Conjunctivae were clear. CARDIAC: Regular rhythm, regular rate. S1/S2 are heard. 2/6 ejection, no gallops or rubs. LUNGS: Clear to auscultation bilaterally. No wheeze, rhonchi or rales. No use of accessory muscles on inspiration or expiration. ABDOMEN: Soft, nontender. Nondistended. Bowel sounds heard in all 4 quadrants. No organomegaly or masses. Negative rebound, negative guarding, PEG tube noted without any signs of infection EXTREMITIES: No edema, pulses are equal bilaterally. No cyanosis or clubbing NEUROLOGY: Patient is moving left upper extremity and able to move left foot. Patient unable to move right upper and lower extremity. SKIN: Patient has a 4 cm x 4 cm sacral decubitus with black eschar. There is induration and granulation noted moving down her gluteal crease bilaterally. Procedures Peg Tube placed 05/08/17 (Dr. De Los Santos) Urinary Catheter: No Vascular Central Line Catheter: No A/P Assessment and Plan Sacral decubitus Wound care nurse evaluated patient in a recommendations Will need plastic surgery/general surgery for consultation to evaluate and perform debridement Consulted general surgery for eval, however they defered consult and indicates should consult Plastics, No plastic surgery reservations specialist until 10/16/17 Febrile illness, early sepsis Likely secondary to sacral decubitus infection, urinary tract infection Continue vancomycin IV/Zosyn IV Continue monitor for infection Continue to monitor blood cultures, urine culture Intracranial hemorrhage, 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 Neurosurgery evaluated patient states no surgical intervention Continue PT/OT/ST Consulted as indicated patient is stable to be discharged to rehabilitation facility Case management consulted for inpatient rehabilitation, who indicated patient is homeless, no discharge disposition to inpatient rehabilitation Palliative care was consulted for recommendations. They recommended, see evaluation which has been done. Awaiting further recommendations Psychiatry indicates that the patient does not have decision-making capacity to participate in her treatment or discharge plan. Dysphagia suspect secondary to intracranial bleed, Post PEG placement 05/09/17. 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 GI Prophylaxis: Prevacid via PEG tube DVT Prophylaxis: Sequential compression devices, chemical prophylaxis contraindicated secondary to intracranial hemorrhage Discharge Planning Case management for discharge planning Kayden Kelley Oct 11, 2017 08:57
[2017-10-11] MEDS: METOPROLOL TARTRATE 100 MG TAB PEG SCH ×2 (09:39→22:59)
[2017-10-11] MEDS: HYDROCHLOROTHIAZIDE 25 MG TAB PO SCH (09:39)
[2017-10-11] MEDS: NYSTATIN SUSP 500,000 U/5 ML CUP SWISH-SWAL SCH ×4 (09:39→22:57)
[2017-10-11] MEDS: SENNOSIDES SYRUP 8.8 MG/5 ML CUP PEG SCH (09:39)
[2017-10-11] MEDS: LANSOPRAZOLE SOLUTAB 30 MG TAB G-TUBE SCH (09:40)
[2017-10-11] MEDS: LISINOPRIL 20 MG TAB PEG SCH ×2 (09:40→22:59)
[2017-10-11] MEDS: LACTIC ACID (AMMONIUM LACTATE) 12% LOTION 225 GM BTL TOPICAL SCH ×2 (09:40→22:58)
[2017-10-11 11:50] VITALS: BP 104/66; PULSE 87; RESP 20; TEMP 99.9; O2SAT 100
[2017-10-11 15:30] VITALS: BP 91/56; PULSE 102; RESP 20; TEMP 100.8; O2SAT 100
[2017-10-11] MEDS ORDERED: PHARMACY ORDERED LAB ONE (17:45)
[2017-10-11 20:00] VITALS: BP 105/63; PULSE 118; RESP 16; TEMP 102.6; O2SAT 100
[2017-10-11 22:24] VITALS: BP 124/71; PULSE 127; RESP 20; TEMP 101.9
[2017-10-11] MEDS: ACETAMINOPHEN 325 MG TAB PEG PRN (23:04)
[2017-10-12] MEDS: hydrALAZINE HCL 50 MG TAB PEG SCH ×5 (01:00→23:18)
[2017-10-12] MEDS: NIFEdipine 20 MG CAP PEG SCH ×5 (01:01→23:18)
[2017-10-12 01:12] VITALS: TEMP 98
[2017-10-12 04:00] VITALS: BP 96/58; PULSE 105; RESP 20; TEMP 99.8; O2SAT 99
[2017-10-12] MEDS: VANCOMYCIN 1,000 MG/NS 250 ML IV SCH ×4 (05:11→18:05)
[2017-10-12] MEDS: PIPERACIL-TAZO 3.375 GM PREMIX 50 ML IV SCH ×4 (06:02→23:15)
[2017-10-12 06:12] LABS: AUTOMATED NEUTROPHIL # 12.6 TH/MM3 (1.8-7.7); BASOPHIL # 0.1 TH/MM3 (0-0.2); BASOPHIL % 0.4 % (0.0-2.0); EOSINOPHIL # 0.1 TH/MM3 (0-0.4); EOSINOPHIL % 0.4 % (0.0-4.0); HEMATOCRIT 31.2 % (35.0-46.0); HEMOGLOBIN 10.3 GM/DL (11.6-15.3); LYMPH % 5.6 % (9.0-44.0); LYMPHOCYTE # 0.8 TH/MM3 (1.0-4.8); MEAN CELL VOLUME 84.6 FL (80.0-100.0); MEAN CORPUSCULAR HEMOGLOBIN 27.9 PG (27.0-34.0); MEAN CORPUSCULAR HGB CONC 32.9 % (32.0-36.0); MEAN PLATELET VOLUME 9.8 FL (7.0-11.0); MONO % 3.4 % (0.0-8.0); MONOCYTE # 0.5 TH/MM3 (0-0.9); NEUT % 90.2 % (16.0-70.0); PLATELET COUNT 263 TH/MM3 (150-450); RED CELL DISTRIBUTION WIDTH 13.8 % (11.6-17.2); WHITE BLOOD COUNT 14.1 TH/MM3 (4.0-11.0)
[2017-10-12 06:21] LABS: CALCIUM 8.1 MG/DL (8.5-10.1)
[2017-10-12 06:22] LABS: BICARBONATE 27.3 MEQ/L (21.0-32.0); MAGNESIUM 2.3 MG/DL (1.5-2.5)
[2017-10-12 06:25] LABS: CREATININE 0.46 MG/DL (0.50-1.00)
[2017-10-12 08:00] VITALS: BP 107/60; PULSE 111; RESP 20; TEMP 101.8; O2SAT 91
[2017-10-12] MEDS: COLLAGENASE OINT 30 GM TUBE TOPICAL SCH ×2 (09:00→21:19)
[2017-10-12] MEDS: LACTIC ACID (AMMONIUM LACTATE) 12% LOTION 225 GM BTL TOPICAL SCH ×2 (09:00→21:19)
--- NOTE | 2017-10-12 11:28 | HHI.PR ---
Subjective Remarks Patient seen and examined today for follow-up on sacral decubitus, urinary tract infection, febrile illness, patient still with fever, patient does have urine tract infection. Patient was seen with plastic surgery today for the sacral decubitus. Objective Vitals Vital Signs Date Time Temp Pulse Resp B/P (MAP) Pulse Ox O2 Delivery O2 Flow Rate FiO2 10/12/17 08:00 101.8 111 20 107/60 (76) 91 10/12/17 04:00 99.8 105 20 96/58 (71) 99 10/12/17 01:12 98.0 10/11/17 22:24 101.9 127 20 124/71 (88) 10/11/17 20:00 102.6 118 16 105/63 (77) 100 10/11/17 15:30 100.8 102 20 91/56 (68) 100 10/11/17 11:50 99.9 87 20 104/66 (79) 100 I/O 10/11/17 10/11/17 10/11/17 10/12/17 10/12/17 10/12/17 07:00 15:00 23:00 07:00 15:00 23:00 Intake Total 710 ml 260 ml 1130 ml 670 ml Output Total 775 ml 750 ml Balance -65 ml 260 ml 1130 ml -80 ml Intake Oral 0 ml IV Total 50 ml 260 ml 50 ml 50 ml Tube Feeding 240 ml 720 ml 240 ml Tube Irrigant 180 ml Other 420 ml 360 ml 200 ml Output Urine Total 775 ml 750 ml # Voids 0 # Bowel Movements 0 1 Result Diagram: 10/12/17 0540 10/12/17 0540 Objective Remarks GENERAL: Well-developed, well-nourished, in no acute distress. Awake, responds minimally with head nods. Trying to speak HEENT: Head is normocephalic without any lesions or masses noted. Facial features are symmetric. Eyes: Conjunctivae were clear. CARDIAC: Regular rhythm, regular rate. S1/S2 are heard. 2/6 ejection, no gallops or rubs. LUNGS: Clear to auscultation bilaterally. No wheeze, rhonchi or rales. No use of accessory muscles on inspiration or expiration. ABDOMEN: Soft, nontender. Nondistended. Bowel sounds heard in all 4 quadrants. No organomegaly or masses. Negative rebound, negative guarding, PEG tube noted without any signs of infection EXTREMITIES: No edema, pulses are equal bilaterally. No cyanosis or clubbing NEUROLOGY: Patient is moving left upper extremity and able to move left foot. Patient unable to move right upper and lower extremity. SKIN: Patient has a 4 cm x 4 cm sacral decubitus with black eschar. There is induration and granulation noted moving down her gluteal crease bilaterally. Procedures Peg Tube placed 05/08/17 (Dr. De Los Santos) Urinary Catheter: Yes Assessment to: Continue Cruz insert reason: Obstruction/Retention Vascular Central Line Catheter: No A/P Assessment and Plan Febrile illness, early sepsis Likely secondary to urinary tract infection Continue vancomycin IV/Zosyn IV Continue monitor for infection Blood cultures negative for 2 days Urine culture is pending Sacral decubitus Wound care nurse evaluated patient in a recommendations Plastic surgery evaluated the patient who recommended Santyl at this time and possible debridement in the near future Intracranial hemorrhage, 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 Neurosurgery evaluated patient states no surgical intervention Continue PT/OT/ST Consulted as indicated patient is stable to be discharged to rehabilitation facility Case management consulted for inpatient rehabilitation, who indicated patient is homeless, no discharge disposition to inpatient rehabilitation Palliative care was consulted for recommendations. They recommended, see evaluation which has been done. Family wants aggressive measures and placement to be performed Psychiatry indicates that the patient does not have decision-making capacity to participate in her treatment or discharge plan. Dysphagia suspect secondary to intracranial bleed, Post PEG placement 05/09/17. 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 GI Prophylaxis: Prevacid via PEG tube DVT Prophylaxis: Sequential compression devices, chemical prophylaxis contraindicated secondary to intracranial hemorrhage Discharge Planning Case management for discharge planning Kayden Kelley Oct 12, 2017 11:28
[2017-10-12] MEDS: LANSOPRAZOLE SOLUTAB 30 MG TAB G-TUBE SCH (11:44)
[2017-10-12] MEDS: LISINOPRIL 20 MG TAB PEG SCH ×2 (11:44→21:18)
[2017-10-12] MEDS: SENNOSIDES SYRUP 8.8 MG/5 ML CUP PEG SCH (11:44)
[2017-10-12] MEDS: NYSTATIN SUSP 500,000 U/5 ML CUP SWISH-SWAL SCH ×4 (11:44→21:19)
[2017-10-12] MEDS: HYDROCHLOROTHIAZIDE 25 MG TAB PO SCH (11:44)
[2017-10-12] MEDS: METOPROLOL TARTRATE 100 MG TAB PEG SCH ×2 (11:45→21:18)
[2017-10-12 12:00] VITALS: BP 101/58; PULSE 115; RESP 20; TEMP 101.1; O2SAT 98
--- NOTE | 2017-10-12 12:33 | RADRPT ---
EXAM DATE/TIME: 10/12/2017 12:18 [facility] COMPARISON: CHEST SINGLE AP, May 31, 2017, 13:13. INDICATIONS : Fever. MEDICAL HISTORY : Left intracranial hemorrhage. Right hemiparesis. SURGICAL HISTORY : None. ENCOUNTER: Subsequent ACUITY: 7 - 11 months PAIN SCORE: Non-responsive. LOCATION: chest FINDINGS: A single view of the chest demonstrates the lungs to be symmetrically aerated without evidence of mas s, infiltrate or effusion. The cardiomediastinal contours are unremarkable. Osseous structures are intact. CONCLUSION: No acute disease. Jann Weber MD on October 12, 2017 at 12:31 Board Certified Radiologist. This report was verified electronically.
[2017-10-12 16:00] VITALS: BP 105/57; PULSE 109; RESP 20; TEMP 101.9; O2SAT 95
[2017-10-12] MEDS: ACETAMINOPHEN 325 MG TAB PEG PRN ×2 (17:27→18:05)
--- NOTE | 2017-10-12 18:28 | PD.CONS ---
History of Present Illness Service Plastic Surgery Consult Requested By Primary Team Reason for Consult Sacral Decubitus Ulcer Primary Care Physician Diagnoses: History of Present Illness Delayed Entry from 0700 today. [place] with altered mental status and R weakness, found to be suffering from large left parenchymal hemorrhage was intraventricular extension on initial CT scan, now with prolonged hospital course without much improvement in mentation and recent Urosepsis and sacral decubitus. Responsiveness diminished from low baseline and febrile morbidity x several days. Urinary cxs positive for Kleb and E Coli. On IV abx for urosepsis. Review of Systems ROS Limitations: Altered Mental Status, Unresponsive Constitutional: COMPLAINS OF: Fatigue Past Family Social History Allergies: Coded Allergies: No Known Allergies (Unverified , 09/05/16) Past Medical History Hemorrhagic CVA Physical Exam Vital Signs Vital Signs Date Time Temp Pulse Resp B/P (MAP) Pulse Ox O2 Delivery O2 Flow Rate FiO2 10/12/17 16:00 101.9 109 20 105/57 (73) 95 10/12/17 12:00 101.1 115 20 101/58 (72) 98 10/12/17 08:00 101.8 111 20 107/60 (76) 91 10/12/17 04:00 99.8 105 20 96/58 (71) 99 10/12/17 01:12 98.0 10/11/17 22:24 101.9 127 20 124/71 (88) 10/11/17 20:00 102.6 118 16 105/63 (77) 100 Physical Exam GENERAL: No apparent distress. SKIN: Roughly 4x4 cm eschar over sacral decubitus. Minimal surrounding erythema/ induration. No signs cellulitis. No discharge. Likely Stage 2/3 decubitus by palpation HEAD: Atraumatic. Normocephalic. No temporal or scalp tenderness. EYES: Tracks to movement, No following commands Laboratory Laboratory Tests Test 10/12/17 05:40 White Blood Count 14.1 Red Blood Count 3.70 Hemoglobin 10.3 Hematocrit 31.2 Mean Corpuscular Volume 84.6 Mean Corpuscular Hemoglobin 27.9 Mean Corpuscular Hemoglobin Concent 32.9 Red Cell Distribution Width 13.8 Platelet Count 263 Mean Platelet Volume 9.8 Neutrophils (%) (Auto) 90.2 Lymphocytes (%) (Auto) 5.6 Monocytes (%) (Auto) 3.4 Eosinophils (%) (Auto) 0.4 Basophils (%) (Auto) 0.4 Neutrophils # (Auto) 12.6 Lymphocytes # (Auto) 0.8 Monocytes # (Auto) 0.5 Eosinophils # (Auto) 0.1 Basophils # (Auto) 0.1 CBC Comment AUTO DIFF Differential Comment AUTO DIFF CONFIRMED Platelet Estimate NORMAL Platelet Morphology Comment NORMAL Red Cell Morphology Comment NORMAL Blood Urea Nitrogen 25 Creatinine 0.46 Random Glucose 92 Calcium Level 8.1 Magnesium Level 2.3 Sodium Level 139 Potassium Level 3.2 Chloride Level 103 Carbon Dioxide Level 27.3 Anion Gap 9 Estimat Glomerular Filtration Rate 166 Date/Time Source Procedure Growth Status 10/10/17 08:10 Blood Peripheral Aerobic Blood Culture - Preliminary NO GROWTH IN 2 DAYS Resulted 10/10/17 08:10 Blood Peripheral Anaerobic Blood Culture - Preliminary NO GROWTH IN 2 DAYS Resulted 10/10/17 22:00 Urine Clean Catch Urine Culture - Final NO GROWTH IN 48 HOURS. Complete Result Diagram: 10/12/1740 10/12/1740 Assessment and Plan Problem List: (1) Sacral decubitus ulcer ICD Codes: L89.159 - Pressure ulcer of sacral region, unspecified stage Status: Acute Plan: Given absence of cellulitis Abx per primary for urosepsis. No need for abx for DQ ulcer Sharp debridement likely needed, though not urgent. Santyl begun by primary team bid Will follow up Problem Qualifiers (1) Sacral decubitus ulcer: Qualified Codes: L89.150 - Pressure ulcer of sacral region, unstageable Rojelio Alcantar MD Oct 12, 2017 18:28
[2017-10-12 20:00] VITALS: BP 95/58; PULSE 108; RESP 18; TEMP 99.8; O2SAT 96
[2017-10-13] VITALS: BP 108/63; PULSE 114; RESP 18; TEMP 100.1; O2SAT 96
[2017-10-13 04:00] VITALS: BP 115/73; PULSE 129; RESP 18; TEMP 101.2; O2SAT 95
[2017-10-13] MEDS: ACETAMINOPHEN 325 MG TAB PEG PRN ×2 (06:16→16:44)
[2017-10-13] MEDS: hydrALAZINE HCL 50 MG TAB PEG SCH ×4 (06:16→23:25)
[2017-10-13] MEDS: NIFEdipine 20 MG CAP PEG SCH ×4 (06:16→23:25)
[2017-10-13] MEDS: PIPERACIL-TAZO 3.375 GM PREMIX 50 ML IV SCH ×4 (06:18→23:26)
[2017-10-13 06:41] LABS: CREATININE 0.37 MG/DL (0.50-1.00)
[2017-10-13] MEDS: VANCOMYCIN 1,000 MG/NS 250 ML IV SCH ×4 (06:56→16:43)
[2017-10-13 08:15] VITALS: BP 119/76; PULSE 121; RESP 18; TEMP 99.7; O2SAT 96
--- NOTE | 2017-10-13 08:58 | HHI.PR ---
Subjective Remarks Patient seen and examined today for follow-up on hemorrhagic CVA, sepsis. Patient doing well today. She denies any new complaints. Patient still febrile. Objective Vitals Vital Signs Date Time Temp Pulse Resp B/P (MAP) Pulse Ox O2 Delivery O2 Flow Rate FiO2 10/13/17 08:06 18 10/13/17 04:00 101.2 129 18 115/73 (87) 95 10/13/17 00:00 100.1 114 18 108/63 (78) 96 10/12/17 20:00 99.8 108 18 95/58 (70) 96 10/12/17 16:00 101.9 109 20 105/57 (73) 95 10/12/17 12:00 101.1 115 20 101/58 (72) 98 I/O 10/12/17 10/12/17 10/12/17 10/13/17 10/13/17 10/13/17 07:00 15:00 23:00 07:00 15:00 23:00 Intake Total 670 ml 250 ml 100 ml Output Total 750 ml 550 ml 400 ml Balance -80 ml -300 ml -300 ml Intake Oral 0 ml IV Total 50 ml 250 ml 100 ml Tube Feeding 240 ml Tube Irrigant 180 ml Other 200 ml Output Urine Total 750 ml 550 ml 400 ml # Bowel Movements 1 1 1 Result Diagram: 10/12/17 0540 10/13/17 0600 Objective Remarks GENERAL: Well-developed, well-nourished, in no acute distress. Awake, responds minimally with head nods. Trying to speak HEENT: Head is normocephalic without any lesions or masses noted. Facial features are symmetric. Eyes: Conjunctivae were clear. CARDIAC: Regular rhythm, regular rate. S1/S2 are heard. 2/6 ejection, no gallops or rubs. LUNGS: Clear to auscultation bilaterally. No wheeze, rhonchi or rales. No use of accessory muscles on inspiration or expiration. ABDOMEN: Soft, nontender. Nondistended. Bowel sounds heard in all 4 quadrants. No organomegaly or masses. Negative rebound, negative guarding, PEG tube noted without any signs of infection EXTREMITIES: No edema, pulses are equal bilaterally. No cyanosis or clubbing NEUROLOGY: Patient is moving left upper extremity and able to move left foot. Patient unable to move right upper and lower extremity. SKIN: Patient has a 4 cm x 4 cm sacral decubitus with black eschar. There is induration and granulation noted moving down her gluteal crease bilaterally. Procedures Peg Tube placed 05/08/17 (Dr. De Los Santos) Urinary Catheter: Yes Assessment to: Continue Cruz insert reason: Measure Accurate Output Vascular Central Line Catheter: No A/P Assessment and Plan Sepsis with leukocytosis, febrile illness, tachycardia, no infectious source has been identified possible sacral decubitus Continue vancomycin IV/Zosyn IV, will consider changing antibiotics, infectious disease has been consulted will defer to them Continue monitor for infection Blood cultures negative for 2 days Urine culture no growth for 48 hours next line obtain culture from sacral wound Consult infectious disease for recommendations for continued fever Start IV fluid with KCl fluid resuscitation, electrolyte replacement Sacral decubitus Wound care nurse evaluated patient in a recommendations Plastic surgery evaluated the patient who recommended Santyl at this time and possible debridement in the near future Intracranial hemorrhage, 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 Neurosurgery evaluated patient states no surgical intervention Continue PT/OT/ST Consulted as indicated patient is stable to be discharged to rehabilitation facility Case management consulted for inpatient rehabilitation, who indicated patient is homeless, no discharge disposition to inpatient rehabilitation Palliative care was consulted for recommendations. They recommended, see evaluation which has been done. Family wants aggressive measures and placement to be performed Psychiatry indicates that the patient does not have decision-making capacity to participate in her treatment or discharge plan. Dysphagia suspect secondary to intracranial bleed, Post PEG placement 05/09/17. 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 GI Prophylaxis: Prevacid via PEG tube DVT Prophylaxis: Sequential compression devices, chemical prophylaxis contraindicated secondary to intracranial hemorrhage Discharge Planning Case management for discharge planning Kayden Kelley Oct 13, 2017 08:58
[2017-10-13] MEDS: METOPROLOL TARTRATE 100 MG TAB PEG SCH ×2 (09:47→20:44)
[2017-10-13] MEDS: LANSOPRAZOLE SOLUTAB 30 MG TAB G-TUBE SCH (09:47)
[2017-10-13] MEDS: COLLAGENASE OINT 30 GM TUBE TOPICAL SCH ×2 (09:47→20:47)
[2017-10-13] MEDS: LACTIC ACID (AMMONIUM LACTATE) 12% LOTION 225 GM BTL TOPICAL SCH ×2 (09:47→20:45)
[2017-10-13] MEDS: SENNOSIDES SYRUP 8.8 MG/5 ML CUP PEG SCH (09:47)
[2017-10-13] MEDS: HYDROCHLOROTHIAZIDE 25 MG TAB PO SCH (09:47)
[2017-10-13] MEDS: LISINOPRIL 20 MG TAB PEG SCH ×2 (09:47→20:44)
[2017-10-13] MEDS: NYSTATIN SUSP 500,000 U/5 ML CUP SWISH-SWAL SCH ×4 (09:48→20:44)
[2017-10-13] MEDS: NS + KCL 20 MEQ INJ 1,000 ML IV SCH ×2 (09:51→19:00)
--- NOTE | 2017-10-13 10:26 | PD.CONS ---
History of Present Illness Service Infectious Disease Consult Requested By Gray Kelley Reason for Consult Fever Primary Care Physician Diagnoses: (1) Fever (2) Intracranial hemorrhage (3) Right hemiplegia (4) Sacral decubitus ulcer History of Present Illness Patient was found in the park with altered mental status and R weakness, found to be suffering from large left parenchymal hemorrhage was intraventricular extension on initial CT scan, now with prolonged hospital course without much improvement in mentation . Patient has had a h/o UTI and now has a sacral decubitus ulcer. Last 3 days patient has been having fevers. Started on Zosyn and now IV Vancomycin- with continued fevers so ID has been consulted. Review of Systems ROS Limitations: Clinical Condition Constitutional: COMPLAINS OF: Fever Past Family Social History Allergies: Coded Allergies: No Known Allergies (Unverified , 09/05/16) Past Medical History Intracranial hemorrhage- April 2017 Hypertension UTI Active Ordered Medications IV Vancomycin and Zosyn Family History Not available Social History Per chart no h/o smoking or alcoholism. Rest not available Physical Exam Vital Signs Vital Signs Date Time Temp Pulse Resp B/P (MAP) Pulse Ox O2 Delivery O2 Flow Rate FiO2 10/13/17 08:15 99.7 121 18 119/76 (90) 96 10/13/17 08:06 18 10/13/17 04:00 101.2 129 18 115/73 (87) 95 10/13/17 00:00 100.1 114 18 108/63 (78) 96 10/12/17 20:00 99.8 108 18 95/58 (70) 96 10/12/17 16:00 101.9 109 20 105/57 (73) 95 10/12/17 12:00 101.1 115 20 101/58 (72) 98 Physical Exam GENERAL: This is a Chronically ill patient, awake but not able to follow SKIN: Sacral decubitus with wet eschar - foul smell and induration bilaterally with tenderness ? developing abscess HEAD: Atraumatic. Normocephalic. No temporal or scalp tenderness. EYES: Extraocular motions intact. No scleral icterus. No injection or drainage. ENT: Nose without bleeding, purulent drainage or septal hematoma. Tongue- no thrush NECK: Trachea midline. No JVD or lymphadenopathy. Supple, nontender, no meningeal signs. CARDIOVASCULAR: Regular rate and rhythm . Systolic murmurs present, No gallops, or rubs. RESPIRATORY: Clear to auscultation. Breath sounds equal bilaterally. No wheezes , rales, or rhonchi. GASTROINTESTINAL: Abdomen soft, non-tender, nondistended. No hepato-splenomegaly , or palpable masses. No guarding. Peg tube MUSCULOSKELETAL: Extremities with wasting NEUROLOGICAL: Awake and alert. Patient with hemiplegia Laboratory Laboratory Tests Test 10/13/17 06:00 Creatinine 0.37 Estimat Glomerular Filtration Rate 213 Date/Time Source Procedure Growth Status 10/10/17 08:10 Blood Peripheral Aerobic Blood Culture - Preliminary NO GROWTH IN 2 DAYS Resulted 10/10/17 08:10 Blood Peripheral Anaerobic Blood Culture - Preliminary NO GROWTH IN 2 DAYS Resulted 10/10/17 22:00 Urine Clean Catch Urine Culture - Final NO GROWTH IN 48 HOURS. Complete Result Diagram: 10/12/17 0540 10/13/17 0600 Assessment and Plan Problem List: (1) Intracranial hemorrhage ICD Codes: I62.9 - Nontraumatic intracranial hemorrhage, unspecified Status: Chronic (2) Right hemiplegia ICD Codes: G81.91 - Hemiplegia, unspecified affecting right dominant side Status: Chronic (3) Sacral decubitus ulcer ICD Codes: L89.159 - Pressure ulcer of sacral region, unspecified stage Status: Chronic (4) Fever ICD Codes: R50.9 - Fever, unspecified Status: Acute Plan: Follow Blood cultures Check Rapid Flu test Source could be decubitus ulcer so will get CT pelvis to check if underlying abscess Continue IV Vancomycin and Zosyn Add Fluconazole 200 MG daily Problem Qualifiers (1) Sacral decubitus ulcer: Qualified Codes: L89.150 - Pressure ulcer of sacral region, unstageable Jenna Looney MD Oct 13, 2017 10:26
[2017-10-13 10:45] LABS: ALBUMIN 2.3 GM/DL (3.4-5.0)
[2017-10-13 10:47] LABS: DIRECT BILIRUBIN ADULT 0.2 MG/DL (0.0-0.2)
[2017-10-13 10:50] LABS: INDIRECT BILIRUBIN 0.2 MG/DL (0.0-0.8); TOTAL BILIRUBIN ADULT 0.4 MG/DL (0.2-1.0); TOTAL PROTEIN 6.1 GM/DL (6.4-8.2)
[2017-10-13 12:00] VITALS: BP 135/82; PULSE 129; RESP 18; TEMP 100.1; O2SAT 98
[2017-10-13] MEDS ORDERED: IOHEXOL 350 MG/ML 10 ML VIAL (for RAD DIAG) IVCONTRAST ONE (12:29)
--- NOTE | 2017-10-13 12:40 | RADRPT ---
EXAM DATE/TIME: 10/13/2017 12:02 [facility] COMPARISON: No previous studies available for comparison. INDICATIONS : Decubitus check for abscess. IV CONTRAST: 85 cc Omnipaque 350 (iohexol) IV ORAL CONTRAST: No oral contrast ingested. RADIATION DOSE: 9.37 CTDIvol (mGy) MEDICAL HISTORY : None SURGICAL HISTORY : None. ENCOUNTER: Initial ACUITY: 1 week PAIN SCALE: Non-responsive LOCATION: pelvis TECHNIQUE: Volumetric scanning of the pelvis was performed. Using automated exposure control and adjustment of t he mA and/or kV according to patient size, radiation dose was kept as low as reasonably achievable to obtain optimal diagnostic quality images. DICOM format image data is available electronically for review and comparison. FINDINGS: BOWEL/MESENTERY: The visualized small and large bowel demonstrate no acute abnormality. There is minimal fluid in the pelvis. BLADDER: There is no wall thickening or mass. RETROPERITONEUM: Heterogeneous uterus containing multiple leiomyomata some of which are calcified. REPRODUCTIVE: Within normal limits. INGUINAL: There is no lymphadenopathy or hernia. MUSCULOSKELETAL: There is decubitus ulcer with small abscess in the right posterior perineal region measuring 3.1 x 4. 6 cm. There is also a very small abscess posterior and to the left of the rectum measuring 3.2 x 2.3 cm mainly filled with air. This does communicate with the decubitus ulcer. CONCLUSION: 1. Decubitus ulcer with small abscess in the right posterior perineal region measuring 3.1 x 4.6 cm. There is also a small abscess posterior and to the left of the rectum measuring 3.2 x 2.3 cm. Jann Weber MD on October 13, 2017 at 12:35 Board Certified Radiologist. This report was verified electronically.
[2017-10-13] MEDS: FLUCONAZOLE 200 MG PREMIX BAG 100 ML IV SCH (15:13)
[2017-10-13 16:00] VITALS: BP 130/87; PULSE 128; RESP 18; TEMP 99.2; O2SAT 97
[2017-10-13 20:00] VITALS: BP 107/81; PULSE 119; RESP 16; TEMP 99.9; O2SAT 95
[2017-10-14 02:00] VITALS: BP 122/71; PULSE 109; TEMP 98.8
[2017-10-14] MEDS: NS + KCL 20 MEQ INJ 1,000 ML IV SCH ×2 (04:41→15:15)
[2017-10-14] MEDS: PIPERACIL-TAZO 3.375 GM PREMIX 50 ML IV SCH ×3 (04:51→18:17)
[2017-10-14] MEDS ORDERED: PHARMACY ORDERED LAB ONE (05:45)
[2017-10-14] MEDS: hydrALAZINE HCL 50 MG TAB PEG SCH ×3 (05:55→18:19)
[2017-10-14] MEDS: NIFEdipine 20 MG CAP PEG SCH ×3 (05:56→18:19)
[2017-10-14] MEDS: VANCOMYCIN 1,000 MG/NS 250 ML IV SCH ×2 (06:03)
[2017-10-14 07:22] LABS: AUTOMATED NEUTROPHIL # 10.5 TH/MM3 (1.8-7.7); BASOPHIL % 0.3 % (0.0-2.0); EOSINOPHIL # 0.2 TH/MM3 (0-0.4); EOSINOPHIL % 1.3 % (0.0-4.0); HEMATOCRIT 31.6 % (35.0-46.0); HEMOGLOBIN 10.2 GM/DL (11.6-15.3); LYMPH % 8.9 % (9.0-44.0); LYMPHOCYTE # 1.1 TH/MM3 (1.0-4.8); MEAN CORPUSCULAR HGB CONC 32.1 % (32.0-36.0); MEAN PLATELET VOLUME 8.8 FL (7.0-11.0); MONO % 8.2 % (0.0-8.0); MONOCYTE # 1.1 TH/MM3 (0-0.9); NEUT % 81.3 % (16.0-70.0); PLATELET COUNT 265 TH/MM3 (150-450); RED BLOOD COUNT 3.77 MIL/MM3 (4.00-5.30); RED CELL DISTRIBUTION WIDTH 13.8 % (11.6-17.2); WHITE BLOOD COUNT 12.9 TH/MM3 (4.0-11.0)
[2017-10-14 07:56] LABS: BICARBONATE 27.4 MEQ/L (21.0-32.0); CALCIUM 8.3 MG/DL (8.5-10.1); CREATININE 0.25 MG/DL (0.50-1.00)
[2017-10-14 08:00] VITALS: BP 114/76; PULSE 108; RESP 18; TEMP 98.4; O2SAT 97
[2017-10-14] MEDS ORDERED: POTASSIUM CHLORIDE 25 MEQ EFFERVESCENT TAB PEG ONE (08:15)
[2017-10-14] MEDS: SENNOSIDES SYRUP 8.8 MG/5 ML CUP PEG SCH (09:00)
[2017-10-14] MEDS: POTASSIUM CHLOR 20 MEQ PREMIX 100 ML IV SCH ×2 (10:48→12:51)
[2017-10-14] MEDS: METOPROLOL TARTRATE 100 MG TAB PEG SCH ×2 (10:49→21:23)
[2017-10-14] MEDS: LANSOPRAZOLE SOLUTAB 30 MG TAB G-TUBE SCH (10:49)
[2017-10-14] MEDS: LISINOPRIL 20 MG TAB PEG SCH ×2 (10:50→21:24)
[2017-10-14] MEDS: LACTIC ACID (AMMONIUM LACTATE) 12% LOTION 225 GM BTL TOPICAL SCH ×2 (10:50→21:24)
[2017-10-14] MEDS: NYSTATIN SUSP 500,000 U/5 ML CUP SWISH-SWAL SCH ×4 (10:50→21:24)
[2017-10-14] MEDS: COLLAGENASE OINT 30 GM TUBE TOPICAL SCH ×2 (10:50→21:24)
--- NOTE | 2017-10-14 11:32 | HHI.PR ---
Subjective Remarks Patient seen and examined today for follow-up on sepsis, sacral decubitus, perineal abscess, perirectal abscess. As indicated by nursing staff the patient had a rather large watery stool last evening. Fever improving, still tachycardic. Objective Vitals Vital Signs Date Time Temp Pulse Resp B/P (MAP) Pulse Ox O2 Delivery O2 Flow Rate FiO2 10/14/17 08:00 98.4 108 18 114/76 (89) 97 10/14/17 04:51 10/14/17 02:00 98.8 109 122/71 (88) 10/13/17 20:00 99.9 119 16 107/81 (90) 95 10/13/17 18:11 18 10/13/17 16:00 99.2 128 18 130/87 (101) 97 10/13/17 12:00 100.1 129 18 135/82 (99) 98 I/O 10/13/17 10/13/17 10/13/17 10/14/17 10/14/17 10/14/17 07:00 15:00 23:00 07:00 15:00 23:00 Intake Total 100 ml 0 ml 1150 ml Output Total 400 ml 500 ml 450 ml 1300 ml Balance -300 ml -500 ml -450 ml -150 ml Intake Oral 0 ml 0 ml IV Total 100 ml 1150 ml Output Urine Total 400 ml 500 ml 450 ml 1300 ml # Bowel Movements 1 1 2 1 Result Diagram: 10/14/17 0710/14/17 0703 Objective Remarks GENERAL: Well-developed, well-nourished, in no acute distress. Awake, responds minimally with head nods. Trying to speak HEENT: Head is normocephalic without any lesions or masses noted. Facial features are symmetric. Eyes: Conjunctivae were clear. CARDIAC: Regular rhythm, regular rate. S1/S2 are heard. 2/6 ejection, no gallops or rubs. LUNGS: Clear to auscultation bilaterally. No wheeze, rhonchi or rales. No use of accessory muscles on inspiration or expiration. ABDOMEN: Soft, nontender. Nondistended. Bowel sounds heard in all 4 quadrants. No organomegaly or masses. Negative rebound, negative guarding, PEG tube noted without any signs of infection EXTREMITIES: No edema, pulses are equal bilaterally. No cyanosis or clubbing NEUROLOGY: Patient is moving left upper extremity and able to move left foot. Patient unable to move right upper and lower extremity. SKIN: Patient has a 4 cm x 4 cm sacral decubitus with black eschar. There is induration and granulation noted moving down her gluteal crease bilaterally. Procedures Peg Tube placed 05/08/17 (Dr. De Los Santos) Urinary Catheter: Yes Assessment to: Continue Cruz insert reason: Measure Accurate Output Vascular Central Line Catheter: No A/P Assessment and Plan Sepsis with leukocytosis, febrile illness, tachycardia, no infectious source has been identified possible sacral decubitus with perineal abscesses Continue vancomycin IV/Zosyn IV/fluconazole IV, Continue monitor for infection Blood cultures negative for 2 days Urine culture no growth for 48 hours next line Awaiting wound culture from sacral wound Consulted infectious disease for recommendations for continued fever Continue IV fluid with KCl fluid resuscitation, electrolyte replacement CT of the pelvis that showed decubitus ulcer with small abscess in the right posterior perineal region and small abscess posterior and to the left rectum Patient with watery diarrhea at this time. We will also obtain C. difficile culture Sacral decubitus Wound care nurse evaluated patient and made recommendations for wound care and surgical debridement 10/10/17, Gen. surgery was consulted for sacral decubitus. Was notified on 10/11/17 that general surgery does not do sacral decubitus debridement or surgeries 10/11/17. Case was discussed with plastic surgery who are actually not consumer science teacher at this time. Dr. Lai was able to arrange for to evaluate the patient 10/12/17. Plastic surgery, Dr. Abdullahi, evaluated the patient who recommended Santyl at this time and possible debridement in the near future 10/13/17. Patient remains septic, CT of the pelvis was performed which did indicate multiple abscess in the right posterior perineal area and posterior and left of the rectum, 10/13/17. Discussed this with plastic surgery Dr. Lai, who indicated that these abscesses are 2 deep and to close to rectal mucosal for plastic surgery. He recommended consulting colorectal surgery 10/13/17. Dr. Franklin was consumer science teacher for colorectal surgery, consult was placed to him for evaluation. Case was discussed with him on multiple occasions. He indicates that since this is connected to a sacral decubitus and since there is no communication with the rectum, this case is not appropriate for colorectal surgery Hypokalemia Likely secondary to likely wasting from diarrhea Replace and continue monitor Intracranial hemorrhage, 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 Neurosurgery evaluated patient states no surgical intervention Continue PT/OT/ST Consulted as indicated patient is stable to be discharged to rehabilitation facility Case management consulted for inpatient rehabilitation, who indicated patient is homeless, no discharge disposition to inpatient rehabilitation Palliative care was consulted for recommendations. They recommended, see evaluation which has been done. Family wants aggressive measures and placement to be performed Psychiatry indicates that the patient does not have decision-making capacity to participate in her treatment or discharge plan. Dysphagia suspect secondary to intracranial bleed, Post PEG placement 05/09/17. 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 GI Prophylaxis: Prevacid via PEG tube DVT Prophylaxis: Sequential compression devices, chemical prophylaxis contraindicated secondary to intracranial hemorrhage Discharge Planning Case management for discharge planning Kayden Kelley Oct 14, 2017 11:32
[2017-10-14 12:00] VITALS: BP 119/82; PULSE 87; RESP 18; TEMP 97.8; O2SAT 96
[2017-10-14] MEDS: FLUCONAZOLE 200 MG PREMIX BAG 100 ML IV SCH (15:15)
--- NOTE | 2017-10-14 15:55 | HHI.IDPN ---
Subjective Subjective Remarks Fever grade is better Noted CT findings Antibiotics Vancomycin , Zosyn and Fluconazole Lines Peripheral IV line Past Medical History Intracranial Hemorrhage Allergies: Coded Allergies: No Known Allergies (Unverified , 09/05/16) Objective . Vital Signs Date Time Temp Pulse Resp B/P (MAP) Pulse Ox O2 Delivery O2 Flow Rate FiO2 10/14/17 12:00 97.8 87 18 119/82 (94) 96 10/14/17 08:00 98.4 108 18 114/76 (89) 97 10/14/17 04:51 10/14/17 02:00 98.8 109 122/71 (88) 10/13/17 20:00 99.9 119 16 107/81 (90) 95 10/13/17 18:11 18 10/13/17 16:00 99.2 128 18 130/87 (101) 97 10/14/17 10/14/17 10/15/17 15:00 23:00 07:00 Intake Total 100 ml 100 ml Balance 100 ml 100 ml IV Total 100 ml 100 ml . Laboratory Tests Test 10/14/17 07:03 White Blood Count 12.9 TH/MM3 Red Blood Count 3.77 MIL/MM3 Hemoglobin 10.2 GM/DL Hematocrit 31.6 % Mean Corpuscular Volume 84.0 FL Mean Corpuscular Hemoglobin 27.0 PG Mean Corpuscular Hemoglobin Concent 32.1 % Red Cell Distribution Width 13.8 % Platelet Count 265 TH/MM3 Mean Platelet Volume 8.8 FL Neutrophils (%) (Auto) 81.3 % Lymphocytes (%) (Auto) 8.9 % Monocytes (%) (Auto) 8.2 % Eosinophils (%) (Auto) 1.3 % Basophils (%) (Auto) 0.3 % Neutrophils # (Auto) 10.5 TH/MM3 Lymphocytes # (Auto) 1.1 TH/MM3 Monocytes # (Auto) 1.1 TH/MM3 Eosinophils # (Auto) 0.2 TH/MM3 Basophils # (Auto) 0.0 TH/MM3 CBC Comment AUTO DIFF Differential Comment AUTO DIFF CONFIRMED Laboratory Tests Test 10/13/17 06:00 10/14/17 07:03 10/14/17 09:10 Creatinine 0.37 MG/DL 0.25 MG/DL Estimat Glomerular Filtration Rate 213 ML/MIN 336 ML/MIN Total Bilirubin 0.4 MG/DL Direct Bilirubin 0.2 MG/DL Indirect Bilirubin 0.2 MG/DL Aspartate Amino Transf (AST/SGOT) 16 U/L Alanine Aminotransferase (ALT/SGPT) 17 U/L Alkaline Phosphatase 63 U/L Total Protein 6.1 GM/DL Albumin 2.3 GM/DL Blood Urea Nitrogen 9 MG/DL Random Glucose 96 MG/DL Calcium Level 8.3 MG/DL Magnesium Level 2.0 MG/DL Sodium Level 143 MEQ/L Potassium Level 2.7 MEQ/L Chloride Level 107 MEQ/L Carbon Dioxide Level 27.4 MEQ/L Anion Gap 9 MEQ/L Lactic Acid Level 0.8 mmol/L Microbiology Date/Time Source Procedure Growth Status 10/14/17 13:30 Nasal Aspirate Influenza Types A,B Antigen ([place]) - Final NEGATIVE FOR FLU A AND B ANTIGEN.... Complete 10/13/17 10:00 Wound Skin Gram Stain - Final Resulted 10/13/17 10:00 Wound Culture - Preliminary Gram Negative Shukri Resulted Physical Exam GENERAL: This is a Chronically ill patient, awake but not able to follow HEAD: Atraumatic. Normocephalic. No temporal or scalp tenderness. EYES: Extraocular motions intact. No scleral icterus. No injection or drainage. Tongue- no thrush NECK: Trachea midline. No JVD or lymphadenopathy. Supple, nontender, no meningeal signs. CARDIOVASCULAR: Regular rate and rhythm . Systolic murmurs present, No gallops, or rubs. RESPIRATORY: Clear to auscultation. Breath sounds equal bilaterally. No wheezes , rales, or rhonchi. GASTROINTESTINAL: Abdomen soft, non-tender, nondistended. No hepato-splenomegaly , or palpable masses. No guarding. Peg tube MUSCULOSKELETAL: Extremities with wasting NEUROLOGICAL: Awake and alert. Patient with hemiplegia Assessment & Plan Diagnosis: (1) Intracranial hemorrhage ICD Codes: I62.9 - Nontraumatic intracranial hemorrhage, unspecified Status: Chronic (2) Right hemiplegia ICD Codes: G81.91 - Hemiplegia, unspecified affecting right dominant side Status: Chronic (3) Sacral decubitus ulcer ICD Codes: L89.159 - Pressure ulcer of sacral region, unspecified stage Status: Chronic (4) Fever ICD Codes: R50.9 - Fever, unspecified Status: Acute Plan: Secondary to decubitus ulcer - abscess Continue IV Vancomycin and Zosyn And Fluconazole 200 MG daily Patient is going to need I & D of abscess / debridement of sacral decubitus ulcer (5) Perineal abscess ICD Codes: L02.215 - Cutaneous abscess of perineum Problem Qualifiers (1) Sacral decubitus ulcer: Qualified Codes: L89.150 - Pressure ulcer of sacral region, unstageable Jenna Looney MD Oct 14, 2017 15:55
[2017-10-14 16:00] VITALS: BP 113/67; PULSE 96; RESP 18; TEMP 98; O2SAT 96
[2017-10-14] MEDS: VANCOMYCIN INJ 1,250 MG in SODIUM CHLOR 0.9% 250 ML INJ 250 ML IV SCH (18:20)
[2017-10-14 18:27] VITALS: BP 115/78; PULSE 100; RESP 16
[2017-10-14 20:00] VITALS: BP 110/76; PULSE 120; RESP 16; TEMP 99.8; O2SAT 93
[2017-10-15] VITALS: BP 101/68; PULSE 110; RESP 16; TEMP 101.6; O2SAT 95
[2017-10-15] MEDS: hydrALAZINE HCL 50 MG TAB PEG SCH ×4 (00:17→17:37)
[2017-10-15] MEDS: NIFEdipine 20 MG CAP PEG SCH ×4 (00:18→17:37)
[2017-10-15] MEDS: PIPERACIL-TAZO 3.375 GM PREMIX 50 ML IV SCH ×4 (00:18→17:38)
[2017-10-15] MEDS: NS + KCL 20 MEQ INJ 1,000 ML IV SCH ×3 (01:00→21:42)
[2017-10-15 04:00] VITALS: BP 122/82; PULSE 104; RESP 16; TEMP 99.1; O2SAT 95
[2017-10-15 06:36] LABS: AUTOMATED NEUTROPHIL # 10.9 TH/MM3 (1.8-7.7); BASOPHIL # 0.1 TH/MM3 (0-0.2); BASOPHIL % 0.5 % (0.0-2.0); EOSINOPHIL # 0.2 TH/MM3 (0-0.4); EOSINOPHIL % 1.4 % (0.0-4.0); HEMATOCRIT 31.6 % (35.0-46.0); HEMOGLOBIN 10.3 GM/DL (11.6-15.3); LYMPH % 9.9 % (9.0-44.0); LYMPHOCYTE # 1.3 TH/MM3 (1.0-4.8); MEAN CELL VOLUME 83.5 FL (80.0-100.0); MEAN CORPUSCULAR HEMOGLOBIN 27.1 PG (27.0-34.0); MEAN CORPUSCULAR HGB CONC 32.5 % (32.0-36.0); MEAN PLATELET VOLUME 8.9 FL (7.0-11.0); MONO % 8.4 % (0.0-8.0); MONOCYTE # 1.1 TH/MM3 (0-0.9); NEUT % 79.8 % (16.0-70.0); PLATELET COUNT 336 TH/MM3 (150-450); RED BLOOD COUNT 3.79 MIL/MM3 (4.00-5.30); RED CELL DISTRIBUTION WIDTH 13.9 % (11.6-17.2); WHITE BLOOD COUNT 13.6 TH/MM3 (4.0-11.0)
[2017-10-15] MEDS: VANCOMYCIN INJ 1,250 MG in SODIUM CHLOR 0.9% 250 ML INJ 250 ML IV SCH ×3 (06:43→21:40)
[2017-10-15 06:51] LABS: CALCIUM 8.2 MG/DL (8.5-10.1)
[2017-10-15 06:52] LABS: BICARBONATE 24.9 MEQ/L (21.0-32.0)
[2017-10-15 06:55] LABS: CREATININE 0.27 MG/DL (0.50-1.00)
[2017-10-15 08:00] VITALS: BP 110/74; PULSE 106; RESP 18; TEMP 99; O2SAT 95
[2017-10-15] MEDS: SENNOSIDES SYRUP 8.8 MG/5 ML CUP PEG SCH (09:00)
--- NOTE | 2017-10-15 09:04 | HHI.PR ---
Subjective Remarks Patient seen and examined today for follow-up on sepsis. Patient still meeting criteria for sepsis at this time secondary to sacral and perineal abscess. Patient still febrile, tachycardic. Patient with grim outlook without appropriate management. Objective Vitals Vital Signs Date Time Temp Pulse Resp B/P (MAP) Pulse Ox O2 Delivery O2 Flow Rate FiO2 10/15/17 04:00 99.1 104 16 122/82 (95) 95 10/15/17 00:00 101.6 110 16 101/68 (79) 95 10/14/17 20:00 99.8 120 16 110/76 (87) 93 10/14/17 18:27 100 16 115/78 (90) 10/14/17 16:00 98.0 96 18 113/67 (82) 96 10/14/17 12:00 97.8 87 18 119/82 (94) 96 I/O 10/14/17 10/14/17 10/14/17 10/15/17 10/15/17 10/15/17 07:00 15:00 23:00 07:00 15:00 23:00 Intake Total 1150 ml 100 ml 550 ml Output Total 1300 ml 750 ml 2000 ml Balance -150 ml -650 ml 550 ml -2000 ml IV Total 1150 ml 100 ml 550 ml Output Urine Total 1300 ml 750 ml 2000 ml # Bowel Movements 1 2 1 3 Result Diagram: 10/15/17 0555 10/15/17 0555 Objective Remarks GENERAL: Well-developed, well-nourished, in no acute distress. Awake, responds minimally with head nods. Trying to speak HEENT: Head is normocephalic without any lesions or masses noted. Facial features are symmetric. Eyes: Conjunctivae were clear. CARDIAC: Regular rhythm, regular rate. S1/S2 are heard. 2/6 ejection, no gallops or rubs. LUNGS: Clear to auscultation bilaterally. No wheeze, rhonchi or rales. No use of accessory muscles on inspiration or expiration. ABDOMEN: Soft, nontender. Nondistended. Bowel sounds heard in all 4 quadrants. No organomegaly or masses. Negative rebound, negative guarding, PEG tube noted without any signs of infection EXTREMITIES: No edema, pulses are equal bilaterally. No cyanosis or clubbing NEUROLOGY: Patient is moving left upper extremity and able to move left foot. Patient unable to move right upper and lower extremity. SKIN: Patient has a 4 cm x 4 cm sacral decubitus with black eschar. There is induration and granulation noted moving down her gluteal crease bilaterally. Patient appears to be in pain with palpation Procedures Peg Tube placed 05/08/17 (Dr. De Los Santos) Urinary Catheter: Yes Assessment to: Continue Cruz insert reason: Measure Accurate Output Vascular Central Line Catheter: No A/P Assessment and Plan Sepsis with leukocytosis, febrile illness, tachycardia, sacral decubitus with perineal abscesses, ongoing Continue vancomycin IV/Zosyn IV/fluconazole IV, Continue monitor for infection Blood cultures negative for 4 days Urine culture no growth for 48 hours next line wound culture from sacral wound with gram-negative jennifer Influenza testing is negative Consulted infectious disease for recommendations for continued fever Continue IV fluid with KCl fluid resuscitation, electrolyte replacement CT of the pelvis that showed decubitus ulcer with small abscess in the right posterior perineal region and small abscess posterior and to the left rectum Patient with watery diarrhea at this time. C. difficile culture was negative Sacral decubitus with perineal abscess, this will need incision, drainage and debridement Wound care nurse evaluated patient and made recommendations for wound care and surgical debridement 10/10/17, Gen. surgery was consulted for sacral decubitus. Was notified on 10/11/17 that general surgery does not do sacral decubitus debridement or surgeries 10/11/17. Case was discussed with plastic surgery who are actually not programmer analyst consultant at this time. Dr. Lai was able to arrange for to evaluate the patient 10/12/17. Plastic surgery, , evaluated the patient who recommended Santyl at this time and possible debridement in the near future 10/13/17. Patient remains septic, CT of the pelvis was performed which did indicate multiple abscess in the right posterior perineal area and posterior and left of the rectum, 10/13/17. Discussed this with plastic surgery Dr. Lai, who indicated that these abscesses are 2 deep and to close to rectal mucosal for plastic surgery. He recommended consulting colorectal surgery 10/13/17. Dr. Franklin was programmer analyst consultant for colorectal surgery, consult was placed to him for evaluation. Case was discussed with him on multiple occasions. He indicates that since this is connected to a sacral decubitus and since there is no communication with the rectum, this case is not appropriate for colorectal surgery, awaiting consultation report 10/15/17. Discussed with Dr. Abdullahi. He was planning a doing debridement of today, however was unable to obtain consent from family Hypokalemia Likely secondary to likely wasting from diarrhea Replace and continue monitor Intracranial hemorrhage, 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 Neurosurgery evaluated patient states no surgical intervention Continue PT/OT/ST Consulted as indicated patient is stable to be discharged to rehabilitation facility Case management consulted for inpatient rehabilitation, who indicated patient is homeless, no discharge disposition to inpatient rehabilitation Palliative care was consulted for recommendations. They recommended, see evaluation which has been done. Family wants aggressive measures and placement to be performed Psychiatry indicates that the patient does not have decision-making capacity to participate in her treatment or discharge plan. Dysphagia suspect secondary to intracranial bleed, Post PEG placement 05/09/17. 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 GI Prophylaxis: Prevacid via PEG tube DVT Prophylaxis: Sequential compression devices, chemical prophylaxis contraindicated secondary to intracranial hemorrhage Palliative care: We'll reconsult palliative care this time in light of the patient's worsening condition, patient will likely require multiple and ongoing surgical intervention, wound VAC, wound management. Would appreciate reevaluation Discharge Planning Case management for discharge planning Kayden Kelley Oct 15, 2017 09:04
[2017-10-15] MEDS: LANSOPRAZOLE SOLUTAB 30 MG TAB G-TUBE SCH (09:21)
[2017-10-15] MEDS: METOPROLOL TARTRATE 100 MG TAB PEG SCH ×2 (09:21→22:09)
[2017-10-15] MEDS: LACTIC ACID (AMMONIUM LACTATE) 12% LOTION 225 GM BTL TOPICAL SCH ×2 (09:21→22:10)
[2017-10-15] MEDS: NYSTATIN SUSP 500,000 U/5 ML CUP SWISH-SWAL SCH ×4 (09:21→22:09)
[2017-10-15] MEDS: LISINOPRIL 20 MG TAB PEG SCH ×2 (09:21→22:09)
[2017-10-15] MEDS: COLLAGENASE OINT 30 GM TUBE TOPICAL SCH ×2 (09:22→22:10)
[2017-10-15] MEDS ORDERED: POTASSIUM CHLORIDE 25 MEQ EFFERVESCENT TAB PO ONE (10:00)
--- NOTE | 2017-10-15 10:06 | HHI.IDPN ---
Subjective Subjective Remarks Still running fever C/o pain in sacral area Antibiotics Vancomycin , Zosyn and Fluconazole Lines Peripheral IV line Past Medical History Intracranial Hemorrhage Allergies: Coded Allergies: No Known Allergies (Unverified , 09/05/16) Objective . Vital Signs Date Time Temp Pulse Resp B/P (MAP) Pulse Ox O2 Delivery O2 Flow Rate FiO2 10/15/17 08:00 99.0 106 18 110/74 (86) 95 10/15/17 04:00 99.1 104 16 122/82 (95) 95 10/15/17 00:00 101.6 110 16 101/68 (79) 95 10/14/17 20:00 99.8 120 16 110/76 (87) 93 10/14/17 18:27 100 16 115/78 (90) 10/14/17 16:00 98.0 96 18 113/67 (82) 96 10/14/17 12:00 97.8 87 18 119/82 (94) 96 . Laboratory Tests Test 10/14/17 07:03 10/15/17 05:55 White Blood Count 12.9 TH/MM3 13.6 TH/MM3 Red Blood Count 3.77 MIL/MM3 3.79 MIL/MM3 Hemoglobin 10.2 GM/DL 10.3 GM/DL Hematocrit 31.6 % 31.6 % Mean Corpuscular Volume 84.0 FL 83.5 FL Mean Corpuscular Hemoglobin 27.0 PG 27.1 PG Mean Corpuscular Hemoglobin Concent 32.1 % 32.5 % Red Cell Distribution Width 13.8 % 13.9 % Platelet Count 265 TH/MM3 336 TH/MM3 Mean Platelet Volume 8.8 FL 8.9 FL Neutrophils (%) (Auto) 81.3 % 79.8 % Lymphocytes (%) (Auto) 8.9 % 9.9 % Monocytes (%) (Auto) 8.2 % 8.4 % Eosinophils (%) (Auto) 1.3 % 1.4 % Basophils (%) (Auto) 0.3 % 0.5 % Neutrophils # (Auto) 10.5 TH/MM3 10.9 TH/MM3 Lymphocytes # (Auto) 1.1 TH/MM3 1.3 TH/MM3 Monocytes # (Auto) 1.1 TH/MM3 1.1 TH/MM3 Eosinophils # (Auto) 0.2 TH/MM3 0.2 TH/MM3 Basophils # (Auto) 0.0 TH/MM3 0.1 TH/MM3 CBC Comment AUTO DIFF DIFF FINAL Differential Comment AUTO DIFF CONFIRMED Laboratory Tests Test 10/14/17 07:03 10/14/17 09:10 10/14/17 16:25 10/15/17 05:55 Blood Urea Nitrogen 9 MG/DL 10 MG/DL Creatinine 0.25 MG/DL 0.27 MG/DL Random Glucose 96 MG/DL 100 MG/DL Calcium Level 8.3 MG/DL 8.2 MG/DL Magnesium Level 2.0 MG/DL 2.0 MG/DL Sodium Level 143 MEQ/L 142 MEQ/L Potassium Level 2.7 MEQ/L 4.5 MEQ/L 3.7 MEQ/L Chloride Level 107 MEQ/L 109 MEQ/L Carbon Dioxide Level 27.4 MEQ/L 24.9 MEQ/L Anion Gap 9 MEQ/L 8 MEQ/L Estimat Glomerular Filtration Rate 336 ML/MIN 307 ML/MIN Lactic Acid Level 0.8 mmol/L Microbiology Date/Time Source Procedure Growth Status 10/14/17 13:30 Nasal Aspirate Influenza Types A,B Antigen ([place]) - Final NEGATIVE FOR FLU A AND B ANTIGEN.... Complete 10/13/17 10:00 Wound Skin Gram Stain - Final Resulted 10/13/17 10:00 Wound Culture - Preliminary Gram Negative Shukri Resulted Physical Exam GENERAL: This is a Chronically ill patient, awake but not able to follow HEAD: Atraumatic. Normocephalic. No temporal or scalp tenderness. EYES: Extraocular motions intact. No scleral icterus. No injection or drainage. Tongue- no thrush NECK: Trachea midline. No JVD or lymphadenopathy. Supple, nontender, no meningeal signs. CARDIOVASCULAR: Regular rate and rhythm . Systolic murmurs present, No gallops, or rubs. RESPIRATORY: Clear to auscultation. Breath sounds equal bilaterally. No wheezes , rales, or rhonchi. GASTROINTESTINAL: Abdomen soft, non-tender, nondistended. No hepato-splenomegaly , or palpable masses. No guarding. Peg tube MUSCULOSKELETAL: Extremities with wasting NEUROLOGICAL: Awake and alert. Patient with hemiplegia Assessment & Plan Diagnosis: (1) Intracranial hemorrhage ICD Codes: I62.9 - Nontraumatic intracranial hemorrhage, unspecified Status: Chronic (2) Right hemiplegia ICD Codes: G81.91 - Hemiplegia, unspecified affecting right dominant side Status: Chronic (3) Sacral decubitus ulcer ICD Codes: L89.159 - Pressure ulcer of sacral region, unspecified stage Status: Chronic (4) Fever ICD Codes: R50.9 - Fever, unspecified Status: Acute Plan: Secondary to decubitus ulcer - abscess Continue IV Vancomycin and Zosyn And Fluconazole 200 MG daily Patient is going to need I & D of abscess / debridement of sacral decubitus ulcer Follow wound culture (5) Perineal abscess ICD Codes: L02.215 - Cutaneous abscess of perineum Problem Qualifiers (1) Sacral decubitus ulcer: Qualified Codes: L89.150 - Pressure ulcer of sacral region, unstageable Jenna Looney MD Oct 15, 2017 10:06
[2017-10-15 12:00] VITALS: BP 135/78; PULSE 89; RESP 18; TEMP 97.1; O2SAT 100
[2017-10-15] MEDS: FLUCONAZOLE 200 MG PREMIX BAG 100 ML IV SCH (12:49)
[2017-10-15 16:00] VITALS: BP 130/84; PULSE 107; RESP 18; TEMP 98.8; O2SAT 96
[2017-10-15 20:00] VITALS: BP 125/84; PULSE 110; RESP 16; TEMP 98.3; O2SAT 96
[2017-10-16 00:13] VITALS: BP 134/87; PULSE 86; RESP 18; TEMP 101.1
[2017-10-16] MEDS: PIPERACIL-TAZO 3.375 GM PREMIX 50 ML IV SCH ×4 (00:17→17:37)
[2017-10-16] MEDS: hydrALAZINE HCL 50 MG TAB PEG SCH ×4 (00:59→17:38)
[2017-10-16] MEDS: NIFEdipine 20 MG CAP PEG SCH ×4 (01:00→17:44)
[2017-10-16] MEDS: ACETAMINOPHEN 325 MG TAB PEG PRN ×2 (01:07→20:58)
[2017-10-16 04:00] VITALS: BP 102/65; PULSE 82; RESP 16; TEMP 97.6; O2SAT 95
[2017-10-16 05:14] LABS: AUTOMATED NEUTROPHIL # 11.6 TH/MM3 (1.8-7.7); BASOPHIL # 0.2 TH/MM3 (0-0.2); BASOPHIL % 1.2 % (0.0-2.0); EOSINOPHIL # 0.3 TH/MM3 (0-0.4); HEMOGLOBIN 10.3 GM/DL (11.6-15.3); LYMPH % 12.4 % (9.0-44.0); LYMPHOCYTE # 1.8 TH/MM3 (1.0-4.8); MEAN CELL VOLUME 86.1 FL (80.0-100.0); MEAN CORPUSCULAR HEMOGLOBIN 28.6 PG (27.0-34.0); MEAN CORPUSCULAR HGB CONC 33.2 % (32.0-36.0); MEAN PLATELET VOLUME 8.3 FL (7.0-11.0); MONOCYTE # 0.9 TH/MM3 (0-0.9); NEUT % 78.4 % (16.0-70.0); PLATELET COUNT 400 TH/MM3 (150-450); RED CELL DISTRIBUTION WIDTH 14.5 % (11.6-17.2); WHITE BLOOD COUNT 14.8 TH/MM3 (4.0-11.0)
[2017-10-16 05:27] LABS: CALCIUM 8.4 MG/DL (8.5-10.1)
[2017-10-16 05:28] LABS: BICARBONATE 21.6 MEQ/L (21.0-32.0); MAGNESIUM 2.1 MG/DL (1.5-2.5)
[2017-10-16 05:31] LABS: CREATININE 0.26 MG/DL (0.50-1.00)
[2017-10-16 05:42] VITALS: BP 109/78; PULSE 79; RESP 18
[2017-10-16] MEDS ORDERED: PHARMACY ORDERED LAB ONE (05:45)
[2017-10-16 08:00] VITALS: BP 113/71; PULSE 97; RESP 16; TEMP 97.8; O2SAT 97
[2017-10-16] MEDS: NYSTATIN SUSP 500,000 U/5 ML CUP SWISH-SWAL SCH ×4 (08:29→20:59)
[2017-10-16] MEDS: LACTIC ACID (AMMONIUM LACTATE) 12% LOTION 225 GM BTL TOPICAL SCH ×2 (08:30→20:59)
[2017-10-16] MEDS: CIPROFLOXACIN 500 MG TAB PEG SCH ×2 (08:30→20:59)
[2017-10-16] MEDS: COLLAGENASE OINT 30 GM TUBE TOPICAL SCH ×2 (08:30→22:08)
[2017-10-16] MEDS: SENNOSIDES SYRUP 8.8 MG/5 ML CUP PEG SCH (08:30)
[2017-10-16] MEDS: METOPROLOL TARTRATE 100 MG TAB PEG SCH ×2 (08:30→20:58)
[2017-10-16] MEDS: LANSOPRAZOLE SOLUTAB 30 MG TAB G-TUBE SCH (08:30)
[2017-10-16] MEDS: LISINOPRIL 20 MG TAB PEG SCH ×2 (08:32→20:59)
--- NOTE | 2017-10-16 08:39 | HHI.PR ---
Subjective Remarks Patient sees examined today for follow-up on sepsis, sacral decubitus, perineal abscess. Patient still septic with fever, tachycardia, leukocytosis, still trying to obtain consent from family for surgical debridement Objective Vitals Vital Signs Date Time Temp Pulse Resp B/P (MAP) Pulse Ox O2 Delivery O2 Flow Rate FiO2 10/16/17 05:42 79 18 109/78 (88) 10/16/17 04:00 97.6 82 16 102/65 (77) 95 10/16/17 00:13 101.1 86 18 134/87 (103) 10/15/17 20:00 98.3 110 16 125/84 (98) 96 10/15/17 16:00 98.8 107 18 130/84 (99) 96 10/15/17 12:00 97.1 89 18 135/78 (97) 100 I/O 10/15/17 10/15/17 10/15/17 10/16/17 10/16/17 10/16/17 07:00 15:00 23:00 07:00 15:00 23:00 Intake Total 1082.5 ml 450 ml 1860 ml Output Total 2000 ml 750 ml 3000 ml Balance -2000 ml 332.5 ml 450 ml -1140 ml IV Total 412.5 ml 50 ml 1200 ml Tube Feeding 480 ml 240 ml 240 ml Tube Irrigant 190 ml 160 ml Other 420 ml Output Urine Total 2000 ml 750 ml 3000 ml # Bowel Movements 3 0 3 4 Result Diagram: 10/16/1744610/16/17446 Objective Remarks GENERAL: Well-developed, well-nourished, in no acute distress. Awake, responds minimally with head nods. Trying to speak HEENT: Head is normocephalic without any lesions or masses noted. Facial features are symmetric. Eyes: Conjunctivae were clear. CARDIAC: Regular rhythm, regular rate. S1/S2 are heard. 2/6 ejection, no gallops or rubs. LUNGS: Clear to auscultation bilaterally. No wheeze, rhonchi or rales. No use of accessory muscles on inspiration or expiration. ABDOMEN: Soft, nontender. Nondistended. Bowel sounds heard in all 4 quadrants. No organomegaly or masses. Negative rebound, negative guarding, PEG tube noted without any signs of infection EXTREMITIES: No edema, pulses are equal bilaterally. No cyanosis or clubbing NEUROLOGY: Patient is moving left upper extremity and able to move left foot. Patient unable to move right upper and lower extremity. SKIN: Patient has a 4 cm x 4 cm sacral decubitus with black eschar. There is induration and granulation noted moving down her gluteal crease bilaterally. Patient appears to be in pain with palpation Procedures Peg Tube placed 05/08/17 (Dr. De Los Santos) Urinary Catheter: Yes Assessment to: Continue Cruz insert reason: Stage III/IV Press Ulcer Vascular Central Line Catheter: No A/P Assessment and Plan Sepsis with leukocytosis, febrile illness, tachycardia, sacral decubitus with perineal abscesses, ongoing Continue vancomycin IV/Zosyn IV/fluconazole IV, Continue monitor for infection Blood cultures negative for 4 days Urine culture no growth for 48 hours next line wound culture from sacral wound with gram-negative jennifer Influenza testing is negative Consulted infectious disease for recommendations for continued fever Continue IV fluid with KCl fluid resuscitation, electrolyte replacement CT of the pelvis that showed decubitus ulcer with small abscess in the right posterior perineal region and small abscess posterior and to the left rectum Patient with watery diarrhea at this time. C. difficile culture was negative Sacral decubitus with perineal abscess, this will need incision, drainage and debridement Wound care nurse evaluated patient and made recommendations for wound care and surgical debridement 10/10/17, Gen. surgery was consulted for sacral decubitus. Was notified on 10/11/17 that general surgery does not do sacral decubitus debridement or surgeries 10/11/17. Case was discussed with plastic surgery who are actually not regional education coordinator at this time. Dr. Lai was able to arrange for to evaluate the patient 10/12/17. Plastic surgery, , evaluated the patient who recommended Santyl at this time and possible debridement in the near future 10/13/17. Patient remains septic, CT of the pelvis was performed which did indicate multiple abscess in the right posterior perineal area and posterior and left of the rectum, 10/13/17. Discussed this with plastic surgery Dr. Lai, who indicated that these abscesses are 2 deep and to close to rectal mucosal for plastic surgery. He recommended consulting colorectal surgery 10/13/17. Dr. Franklin was regional education coordinator for colorectal surgery, consult was placed to him for evaluation. Case was discussed with him on multiple occasions. He indicates that since this is connected to a sacral decubitus and since there is no communication with the rectum, this case is not appropriate for colorectal surgery, awaiting consultation report 10/15/17. Discussed with Dr. Abdullahi. He was planning a doing debridement of today, however was unable to obtain consent from family Hypokalemia Likely secondary to likely wasting from diarrhea Replace and continue monitor Intracranial hemorrhage, 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 Neurosurgery evaluated patient states no surgical intervention Continue PT/OT/ST Consulted as indicated patient is stable to be discharged to rehabilitation facility Case management consulted for inpatient rehabilitation, who indicated patient is homeless, no discharge disposition to inpatient rehabilitation Palliative care was consulted for recommendations. They recommended, see evaluation which has been done. Family wants aggressive measures and placement to be performed Psychiatry indicates that the patient does not have decision-making capacity to participate in her treatment or discharge plan. Dysphagia suspect secondary to intracranial bleed, Post PEG placement 05/09/17. 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 GI Prophylaxis: Prevacid via PEG tube DVT Prophylaxis: Sequential compression devices, chemical prophylaxis contraindicated secondary to intracranial hemorrhage Palliative care: We'll reconsult palliative care this time in light of the patient's worsening condition, patient will likely require multiple and ongoing surgical intervention, wound VAC, wound management. Would appreciate reevaluation Discharge Planning Case management for discharge planning Kayden Kelley Oct 16, 2017 08:39
[2017-10-16] MEDS: VANCOMYCIN INJ 1,250 MG in SODIUM CHLOR 0.9% 250 ML INJ 250 ML IV SCH ×2 (10:27→22:23)
--- NOTE | 2017-10-16 10:41 | MB ---
cc: DEVORA HARRINGTON M.D. DATE OF CONSULTATION: 10/13/2017. REASON FOR CONSULTATION: Sacral decubitus. HISTORY OF PRESENT ILLNESS: Ms. Miranda is a 61-year-old female hospitalized for several weeks after altered mental status resulting from an intraparenchymal hemorrhage. The patient has been on tube feedings while in the hospital with slow improvement in her mentation. Recent treatment for urosepsis. She has also developed a sacral decubitus which was initially consulted to general surgery and then to plastic surgery for treatment. The patient has been having fevers for the last day or so up to 101.9. The urinary tract was positive for Klebsiella and E coli. Infectious disease was consulted and has her on antibiotics. The undersigned was consulted for additional evaluation of any perirectal infection. Please see the admitting history and physical and multiple consults in the chart for complete past medical and surgical history. PHYSICAL EXAMINATION: GENERAL: A very pleasant, chronically ill female in no acute distress. ABDOMEN: Abdomen was soft and flat. No distension. No rebound or guarding. No masses noted. RECTAL: Anal inspection showed an eschar probably 4x4 centimeters over the sacral area somewhat fluctuant but without any significant cellulitis or drainage and not especially tender. Anal inspection reveals lots of stool oozing out through the anal canal without any signs of bleeding. Digital exam revealed decreased tone with rectum full of soft stool and no signs of perirectal infection. Induration and some thickening in the postanal space. LABORATORY FINDINGS: White count was 14.1. Hemoglobin 10.3. IMAGING STUDIES: CT scan reviewed and showing decubitus ulcer with abscess formation in the right posterior perineal region and a smaller abscess from the left of the rectum also communicating with a decubitus ulcer. IMPRESSION: Unfortunate 62-year-old female with chronic illness and immobility. Sacral decubitus appears to be evaluated but not debrided up to this point. Appears by CT scan to extend into the presacral space and into the ischiorectal spaces On today's exam it does not appear to involve the rectum of the anal canal or the rectum. Would favor operative debridement by either plastic surgery or general surgery to further unroof the process and possibly place a wound VAC as appropriate for containment of the wound from the anal canal and fecal drainage. MD NIC Gamino/CECILE /5:11 PM /10:33 AM
[2017-10-16] MEDS: NS + KCL 20 MEQ INJ 1,000 ML IV SCH ×2 (12:51→20:57)
--- NOTE | 2017-10-16 13:08 | HHI.HCPN ---
Reason for visit a. To assist with evaluation and management of symptoms including: dysphagia , aphasia, hemiparesis, pain. b. To assist medical decision maker(s) with: better understanding of current medical conditions; weighing benefits/burdens of medical treatment options; making medical treatment decisions. Subjective/Interval History 61-year-old who was brought in as a Nichol Holley on 04/10/2017 for altered mental status, right sided hemiparesis and leftward gaze; nonverbal possible STEMI, hypertensive emergency, 250s/150s, found to have an acute thalamic and intraventricular hemorrhage on left with 7mm of rightward midline shift. Eventually her name was determined to be Treva Miranda and her daughter Annemarie Wallace and son Henri Birmingham were located. Over her 6 month course in the hospital she has had minimal neurologic recovery and remains with right hemiparesis, bilateral foot drop, dysphasia, aphasia and has developed a large coccyx wound. Attempts have been made to reach her children to give consent for surgical procedure to debride and attempt to close the wound, but calls have not been returned. Palliative care was consulted to assist family in determining goals of care, update on medical conditions and determine if they wish to pursue aggressive treatment versus comfort care. . Family/friend interactions Call was placed to the last known number of Geri Wallace at her previously functioning number of and that phone has been disconnected. Attempts were also made to contact Henri Birmingham and message was left at . The alternate phone number was not accepting incoming telephone calls. . Advance Directives Living Will: Never completed Health Care Surrogate: Never completed Durable Power of Drosophere Operator: Never completed Objective Vital Signs Date Time Temp Pulse Resp B/P (MAP) Pulse Ox O2 Delivery O2 Flow Rate FiO2 10/16/17 08:00 97.8 97 16 113/71 (85) 97 10/16/17 05:42 79 18 109/78 (88) 10/16/17 04:00 97.6 82 16 102/65 (77) 95 10/16/17 00:13 101.1 86 18 134/87 (103) 10/15/17 20:00 98.3 110 16 125/84 (98) 96 10/15/17 16:00 98.8 107 18 130/84 (99) 96 Intake & Output 10/16/17 10/16/17 07:00 19:00 Intake Total 1860 ml Output Total 3000 ml Balance -1140 ml IV Total 1200 ml Tube Feeding 240 ml Other 420 ml Output Urine Total 3000 ml # Bowel Movements 6 Physical Exam CONSTITUTIONAL/GENERAL: This is an adequately nourished patient, in no apparent distress. SKIN: No jaundice, rashes, or lesions. Ecchymoses on upper extremities. No wounds seen anteriorly. Skin temperature appropriate. Not diaphoretic. HEAD: Atraumatic. Normocephalic. EYES: Pupils equal and round and reactive. Extraocular motions intact. No scleral icterus. No injection or drainage. Fundi not examined. NECK: Trachea midline. Supple, nontender. No palpable thyroid enlargement or nodularity. CARDIOVASCULAR: Regular rate and rhythm without murmurs, gallops, or rubs. No JVD. Peripheral pulses symmetric. RESPIRATORY/CHEST: Symmetric, unlabored respirations. Clear to auscultation. Breath sounds equal bilaterally. No wheezes, rales, or rhonchi. GASTROINTESTINAL: Abdomen soft, non-tender, nondistended. No hepato-splenomegaly , or palpable masses. No guarding. Bowel sounds present. PEG to LUQ. Job Checker shield in place. GENITOURINARY: Without palpable bladder distension. Cruz catheter in place. MUSCULOSKELETAL: Bilateral foot drop, trace edema, has boots on. NEUROLOGICAL: Awake and alert. Right sided hemiperesis, flaccid. Able to squeeze hand with left and wiggle left toes. Nods yes intermittently. PSYCHIATRIC: No obvious anxiety/depression on my visit . Diagnostic Tests Laboratory Laboratory Tests Test 10/14/17 05:48 10/14/17 07:03 10/14/17 09:10 10/14/17 13:30 Vancomycin Level Trough 12.7 MCG/ML (5.0-10.0) White Blood Count 12.9 TH/MM3 (4.0-11.0) Red Blood Count 3.77 MIL/MM3 (4.00-5.30) Hemoglobin 10.2 GM/DL (11.6-15.3) Hematocrit 31.6 % (35.0-46.0) Mean Corpuscular Volume 84.0 FL (80.0-100.0) Mean Corpuscular Hemoglobin 27.0 PG (27.0-34.0) Mean Corpuscular Hemoglobin Concent 32.1 % (32.0-36.0) Red Cell Distribution Width 13.8 % (11.6-17.2) Platelet Count 265 TH/MM3 (150-450) Mean Platelet Volume 8.8 FL (7.0-11.0) Neutrophils (%) (Auto) 81.3 % (16.0-70.0) Lymphocytes (%) (Auto) 8.9 % (9.0-44.0) Monocytes (%) (Auto) 8.2 % (0.0-8.0) Eosinophils (%) (Auto) 1.3 % (0.0-4.0) Basophils (%) (Auto) 0.3 % (0.0-2.0) Neutrophils # (Auto) 10.5 TH/MM3 (1.8-7.7) Lymphocytes # (Auto) 1.1 TH/MM3 (1.0-4.8) Monocytes # (Auto) 1.1 TH/MM3 (0-0.9) Eosinophils # (Auto) 0.2 TH/MM3 (0-0.4) Basophils # (Auto) 0.0 TH/MM3 (0-0.2) CBC Comment AUTO DIFF Differential Comment AUTO DIFF CONFIRMED Blood Urea Nitrogen 9 MG/DL (7-18) Creatinine 0.25 MG/DL (0.50-1.00) Random Glucose 96 MG/DL (74-106) Calcium Level 8.3 MG/DL (8.5-10.1) Magnesium Level 2.0 MG/DL (1.5-2.5) Sodium Level 143 MEQ/L (136-145) Potassium Level 2.7 MEQ/L (3.5-5.1) Chloride Level 107 MEQ/L (98-107) Carbon Dioxide Level 27.4 MEQ/L (21.0-32.0) Anion Gap 9 MEQ/L (5-15) Estimat Glomerular Filtration Rate 336 ML/MIN (>89) Lactic Acid Level 0.8 mmol/L (0.4-2.0) Stool C. difficile Toxin (PCR) NEGATIVE (NEGATIVE) Stl C. difficile Toxin Epiderm 027 PRESUMPTIVE NEGATIVE Test 10/14/17 16:25 10/15/17 05:55 10/16/17 04:47 Potassium Level 4.5 MEQ/L (3.5-5.1) 3.7 MEQ/L (3.5-5.1) 3.9 MEQ/L (3.5-5.1) White Blood Count 13.6 TH/MM3 (4.0-11.0) 14.8 TH/MM3 (4.0-11.0) Red Blood Count 3.79 MIL/MM3 (4.00-5.30) 3.60 MIL/MM3 (4.00-5.30) Hemoglobin 10.3 GM/DL (11.6-15.3) 10.3 GM/DL (11.6-15.3) Hematocrit 31.6 % (35.0-46.0) 31.0 % (35.0-46.0) Mean Corpuscular Volume 83.5 FL (80.0-100.0) 86.1 FL (80.0-100.0) Mean Corpuscular Hemoglobin 27.1 PG (27.0-34.0) 28.6 PG (27.0-34.0) Mean Corpuscular Hemoglobin Concent 32.5 % (32.0-36.0) 33.2 % (32.0-36.0) Red Cell Distribution Width 13.9 % (11.6-17.2) 14.5 % (11.6-17.2) Platelet Count 336 TH/MM3 (150-450) 400 TH/MM3 (150-450) Mean Platelet Volume 8.9 FL (7.0-11.0) 8.3 FL (7.0-11.0) Neutrophils (%) (Auto) 79.8 % (16.0-70.0) 78.4 % (16.0-70.0) Lymphocytes (%) (Auto) 9.9 % (9.0-44.0) 12.4 % (9.0-44.0) Monocytes (%) (Auto) 8.4 % (0.0-8.0) 6.0 % (0.0-8.0) Eosinophils (%) (Auto) 1.4 % (0.0-4.0) 2.0 % (0.0-4.0) Basophils (%) (Auto) 0.5 % (0.0-2.0) 1.2 % (0.0-2.0) Neutrophils # (Auto) 10.9 TH/MM3 (1.8-7.7) 11.6 TH/MM3 (1.8-7.7) Lymphocytes # (Auto) 1.3 TH/MM3 (1.0-4.8) 1.8 TH/MM3 (1.0-4.8) Monocytes # (Auto) 1.1 TH/MM3 (0-0.9) 0.9 TH/MM3 (0-0.9) Eosinophils # (Auto) 0.2 TH/MM3 (0-0.4) 0.3 TH/MM3 (0-0.4) Basophils # (Auto) 0.1 TH/MM3 (0-0.2) 0.2 TH/MM3 (0-0.2) CBC Comment DIFF FINAL AUTO DIFF Differential Comment AUTO DIFF CONFIRMED Blood Urea Nitrogen 10 MG/DL (7-18) 8 MG/DL (7-18) Creatinine 0.27 MG/DL (0.50-1.00) 0.26 MG/DL (0.50-1.00) Random Glucose 100 MG/DL (74-106) 97 MG/DL (74-106) Calcium Level 8.2 MG/DL (8.5-10.1) 8.4 MG/DL (8.5-10.1) Magnesium Level 2.0 MG/DL (1.5-2.5) 2.1 MG/DL (1.5-2.5) Sodium Level 142 MEQ/L (136-145) 142 MEQ/L (136-145) Chloride Level 109 MEQ/L (98-107) 112 MEQ/L (98-107) Carbon Dioxide Level 24.9 MEQ/L (21.0-32.0) 21.6 MEQ/L (21.0-32.0) Anion Gap 8 MEQ/L (5-15) 8 MEQ/L (5-15) Estimat Glomerular Filtration Rate 307 ML/MIN (>89) 321 ML/MIN (>89) . Result Diagram: 10/16/17 0447 10/16/17 0447 Microbiology Microbiology Date/Time Source Procedure Growth Status 10/14/17 13:30 Nasal Aspirate Influenza Types A,B Antigen ([place]) - Final NEGATIVE FOR FLU A AND B ANTIGEN.... Complete Imaging Last Impressions Pelvis CT 10/13/17 0000 Signed Impressions: Service Date/Time: Friday, October 13, 2017 12:02 - CONCLUSION: 1. Decubitus ulcer with small abscess in the right posterior perineal region measuring 3.1 x 4.6 cm. There is also a small abscess posterior and to the left of the rectum measuring 3.2 x 2.3 cm. Jann Weber MD Chest X-Ray 10/12/17 0000 Signed Impressions: Service Date/Time: October 12:18 - CONCLUSION: No acute disease. Jann Weber MD Upper Extremity Ultrasound 08/03/17 0000 Signed Impressions: Service Date/Time: July 04:13 - CONCLUSION: Normal examination. Adi Quarles MD Head CT 04/25/17 0000 Signed Impressions: Service Date/Time: Tuesday, April 25, 2017 18:02 - CONCLUSION: 1. Evolving left thalamic hematoma. No new hemorrhage. Adi Quarles MD Abdomen X-Ray 04/12/17 1538 Signed Impressions: Service Date/Time: Wednesday, April 12, 2017 17:29 - CONCLUSION: Nonobstructive bowel gas pattern. Suresh Zapata MD Neck CTA 04/10/17 0000 Signed Impressions: Service Date/Time: Monday, April 10, 2017 22:28 - CONCLUSION: The internal carotid arteries are normal bilaterally. No significant atherosclerotic disease is noted. Eliud Du MD Head CTA 04/10/17 0000 Signed Impressions: Service Date/Time: Monday, April 10, 2017 22:50 - CONCLUSION: Mild dilatation of the basilar tip without discrete aneurysm. Some narrowing of the left middle cerebral branch after the bifurcation. Prominent left thalamic hemorrhage. Eliud Du MD Procedures 05/08/17: PEG placement . Assessment and Plan Disease Oriented Problem List: (1) Intracranial hemorrhage Comment: left thalamic hemorrhage, due to hypertensive emergency. (2) Malignant hypertension Comment: complicated by non compliance with medication due to delusion and paranoia (3) Unspecified psychosis (4) Delusional disorder (5) Hemiparesis Comment: right (6) Psychosis Symptom Scale: (1) Dysphagia 0-10 Scale: Unable to quantify (2) Aphasia 0-10 Scale: Unable to quantify (3) Hemiparesis 0-10 Scale: Unable to quantify Pertinent Non-Medical Issues Psychosocial:hx of delusions, paranoia, bruno act, non-compliance, now with thalamic stroke. Pt also is pending SSI. Spiritual:taoism Legal:If not capacitated, surviving children, pt's daughter and son would be health care proxy. Son appears to be difficult to reach, per health and social care teacher. Ethical issues impacting care:none at this time. Important Contacts Aleena Wallace [phone]. Number is currently disconnected. Henri Birmingham [phone], . Prognosis Pt with psychiatric hx of delusions, paranoia, has extensive hospital stay of 160 plus days after a left thalamic stroke. Pt is peg tube dependent, with hemiperisis; but has been relatively stable since April. She is at risk of recurrent hospitalization and setbacks. However given no recent pneumonia episodes, or major complications, I feel given pt continue tube feedings, prognosis is > 6 months. Albumin is 3.6 since last check on 09/07/2017 Code Status: Full Code Plan PLAN: Legal decision maker: She has 2 children who serve as joint proxy. Goals: Aggressive by default CODE STATUS: FULL CODE SYMPTOMS: * Dysphasia: failing swallow evals. PEG tube placed. Receiving TF. * Aphasia: Secondary to left thalamus stroke. Able to nod her head intermittently to questions, but not consistently. * Right hemiparesis: Continues physical therapy. * Pain: Likely source of pain is bedbound status, invasive lines, large tunnelled sacral decubitus. Pending contact with family to determine whether they wish to proceed with surgical intervention or comfort care. Have placed calls to son, however the daughter's number is disconnected. Palliative care will continue to follow the patient during hospital course as condition evolves, to assist patient/decision-maker with understanding of their medical conditions, weighing benefits/burdens of treatment options, for clarification of goals of treatment. Additionally will assist with any symptoms of palliative concern. . Attestation To help prompt me to consider important information that might be impacting today's encounter and assessment, information from prior notes written by myself or my colleagues may have been "brought forward" into today's note. My signature on this note, however, is an attestation that I personally performed the exam, history, and/or decision-making noted today, and, unless otherwise indicated, the interactions with patient, family, and staff as well as the review of records all occurred today. I also attest that the listed assessment and stated plan reflect my best clinical judgment today based on the combination of historical information, prior notes, and today's exam/ interactions. When time spent is documented, it refers only to time spent today by the signer, or if indicated, combined time spent today by collaborating physician/nurse practitioner. . Suzi Aldridge Oct 16, 2017 13:08
[2017-10-16 20:00] VITALS: BP 111/69; PULSE 102; RESP 18; TEMP 99.1; O2SAT 98
[2017-10-16] MEDS ORDERED: VANCOMYCIN TROUGH ONE (21:45)
[2017-10-17] MEDS: hydrALAZINE HCL 50 MG TAB PEG SCH ×4 (00:57→18:00)
[2017-10-17] MEDS: PIPERACIL-TAZO 3.375 GM PREMIX 50 ML IV SCH ×4 (00:57→18:00)
[2017-10-17] MEDS: NIFEdipine 20 MG CAP PEG SCH ×4 (00:57→18:00)
[2017-10-17] MEDS: NS + KCL 20 MEQ INJ 1,000 ML IV SCH ×3 (03:00→18:00)
[2017-10-17 06:37] LABS: CREATININE 0.6 MG/DL (0.50-1.00)
[2017-10-17 08:00] VITALS: BP 136/94; PULSE 101; RESP 12; TEMP 96.1; O2SAT 98
[2017-10-17] MEDS: COLLAGENASE OINT 30 GM TUBE TOPICAL SCH ×2 (09:00→21:00)
[2017-10-17] MEDS: LACTIC ACID (AMMONIUM LACTATE) 12% LOTION 225 GM BTL TOPICAL SCH ×2 (10:01→20:49)
[2017-10-17] MEDS: VANCOMYCIN INJ 1,250 MG in SODIUM CHLOR 0.9% 250 ML INJ 250 ML IV SCH (10:01)
[2017-10-17] MEDS: METOPROLOL TARTRATE 100 MG TAB PEG SCH ×2 (10:02→20:40)
[2017-10-17] MEDS: SENNOSIDES SYRUP 8.8 MG/5 ML CUP PEG SCH (10:02)
[2017-10-17] MEDS: CIPROFLOXACIN 500 MG TAB PEG SCH ×2 (10:02→20:40)
[2017-10-17] MEDS: LISINOPRIL 20 MG TAB PEG SCH ×2 (10:02→20:40)
[2017-10-17] MEDS: LANSOPRAZOLE SOLUTAB 30 MG TAB G-TUBE SCH (10:02)
[2017-10-17] MEDS: NYSTATIN SUSP 500,000 U/5 ML CUP SWISH-SWAL SCH ×2 (10:02→14:28)
--- NOTE | 2017-10-17 10:35 | HHI.PR ---
Subjective Remarks Follow up hemorrhagic CVA. Patient seen and examined, lying in bed with no change in clinical condition. Son at bedside and updated. Consents have been signed for debridement of her sacral wound. Attempted to call plastic surgeon Dr. Abdullahi, and left voicemail message and updated about obtaining consent. Will await call back. Patient is stable at this time. Afebrile overnight, previous temp 101 now decreased. Objective Vitals Vital Signs Date Time Temp Pulse Resp B/P (MAP) Pulse Ox O2 Delivery O2 Flow Rate FiO2 10/16/17 20:00 99.1 102 18 111/69 (83) 98 I/O 10/16/17 10/16/17 10/16/17 10/17/17 10/17/17 10/17/17 07:00 15:00 23:00 07:00 15:00 23:00 Intake Total 1860 ml 312.5 ml 50 ml 950 ml 1000 ml Output Total 3000 ml 2100 ml 1550 ml Balance -1140 ml 312.5 ml -2050 ml -600 ml 1000 ml IV Total 1200 ml 312.5 ml 50 ml 950 ml 1000 ml Tube Feeding 240 ml Other 420 ml Output Urine Total 3000 ml 2100 ml 750 ml Stool Total 800 ml # Bowel Movements 4 Result Diagram: 10/16/17 0447 10/17/17 0600 Imaging Last Impressions Pelvis CT 10/13/17 0000 Signed Impressions: Service Date/Time: Friday, October 13, 2017 12:02 - CONCLUSION: 1. Decubitus ulcer with small abscess in the right posterior perineal region measuring 3.1 x 4.6 cm. There is also a small abscess posterior and to the left of the rectum measuring 3.2 x 2.3 cm. Jann Weber MD Chest X-Ray 10/12/17 0000 Signed Impressions: Service Date/Time: October 12:18 - CONCLUSION: No acute disease. Jann Weber MD Upper Extremity Ultrasound 08/03/17 0000 Signed Impressions: Service Date/Time: July 04:13 - CONCLUSION: Normal examination. Adi Quarles MD Head CT 04/25/17 0000 Signed Impressions: Service Date/Time: Tuesday, April 25, 2017 18:02 - CONCLUSION: 1. Evolving left thalamic hematoma. No new hemorrhage. Adi Quarles MD Abdomen X-Ray 04/12/17 1538 Signed Impressions: Service Date/Time: Wednesday, April 12, 2017 17:29 - CONCLUSION: Nonobstructive bowel gas pattern. Suresh Zapata MD Neck CTA 04/10/17 0000 Signed Impressions: Service Date/Time: Monday, April 10, 2017 22:28 - CONCLUSION: The internal carotid arteries are normal bilaterally. No significant atherosclerotic disease is noted. Eliud Du MD Head CTA 04/10/17 0000 Signed Impressions: Service Date/Time: Monday, April 10, 2017 22:50 - CONCLUSION: Mild dilatation of the basilar tip without discrete aneurysm. Some narrowing of the left middle cerebral branch after the bifurcation. Prominent left thalamic hemorrhage. Eliud Du MD Objective Remarks GENERAL: Well-developed, well-nourished, in no acute distress. Awake, responds minimally with head nods, tracking with eyes. Expressive aphasic, attempts to speak intermittently. HEENT: Head is normocephalic without any lesions or masses noted. Facial features are symmetric. Eyes: Conjunctivae were clear. Skin on sacrum macerated , 4x4 in size, Mepilex. Continue to monitor. CARDIAC: Regular rhythm, regular rate. S1/S2 are heard. 2/6 ejection, no gallops or rubs. LUNGS: Clear to auscultation bilaterally. No wheeze, rhonchi or rales. No use of accessory muscles on inspiration or expiration. ABDOMEN: Soft, nontender. Nondistended. Bowel sounds heard in all 4 quadrants. No organomegaly or masses. Negative guarding. PEG tube noted without any signs of infection, skin c/d/i, dressing intact. No erythema. EXTREMITIES: No edema, pulses are equal bilaterally. No cyanosis or clubbing NEUROLOGY: Patient is moving left upper extremity and able to move left foot. Patient unable to move right upper and lower extremity. Procedures Peg Tube placed 05/08/17 (Dr. De Los Santos) A/P Assessment and Plan Sepsis with leukocytosis, febrile illness, tachycardia, sacral decubitus with perineal abscesses, ongoing Continue vancomycin IV/Zosyn IV/fluconazole IV Continue monitor for infection Blood cultures negative to date. Urine culture no growth to date wound culture from sacral wound growing Pseudomonas Aeruginosa. Influenza testing is negative. Infectious disease following with patient, appreciate recommendations. Continue IV fluid with KCl fluid resuscitation, electrolyte replacement CT of the pelvis that showed decubitus ulcer with small abscess in the right posterior perineal region and small abscess posterior and to the left rectum Patient with watery diarrhea at this time. C. difficile culture was negative Follow CBC in am. Sacral decubitus with perineal abscess, this will need incision, drainage and debridement Wound care nurse evaluated patient and made recommendations for wound care and surgical debridement 10/10/17. Gen. surgery was consulted for sacral decubitus. Was notified on 10/11/17 that general surgery does not do sacral decubitus debridement or surgeries 10/11/17. Case was discussed with plastic surgery who are actually not litigation specialist at this time. Dr. Lai was able to arrange for to evaluate the patient 10/12/17. Plastic surgery, , evaluated the patient who recommended Santyl at this time and possible debridement in the near future 10/13/17. Patient remains septic, CT of the pelvis was performed which did indicate multiple abscess in the right posterior perineal area and posterior and left of the rectum, 10/13/17. Discussed this with plastic surgery Dr. Lai, who indicated that these abscesses are 2 deep and to close to rectal mucosal for plastic surgery. He recommended consulting colorectal surgery 10/13/17. Dr. Franklin was litigation specialist for colorectal surgery, consult was placed to him for evaluation. Case was discussed with him on multiple occasions. He indicates that since this is connected to a sacral decubitus and since there is no communication with the rectum, this case is not appropriate for colorectal surgery, awaiting consultation report 10/15/17. Discussed with Dr. Abdullahi. He was planning a doing debridement of today, however was unable to obtain consent from family 10/17/17. Spoke with son, consents signed for I&D of sacral wound. Attempted to contact Dr. Abdullahi and left voicemail with patient update. Will await surgery plans and recommendations. Hypokalemia. Resolved. 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 Neurosurgery evaluated patient states no surgical intervention Continue PT/OT/ST Consulted as indicated patient is stable to be discharged to rehabilitation facility Case management consulted for inpatient rehabilitation, who indicated patient is homeless, no discharge disposition to inpatient rehabilitation Palliative care was consulted for recommendations. They recommended, see evaluation which has been done. Family wants aggressive measures and placement to be performed Psychiatry indicates that the patient does not have decision-making capacity to participate in her treatment or discharge plan. Palliative care has been reconsulted, patient will likely require multiple and ongoing surgical intervention, wound VAC, wound management. Would appreciate reevaluation. Spoke to son who continues to want aggressive measures. Desires for patient to undergo I&D of sacral wound. Plan is for palliative care to meet with son this afternoon,. Dysphagia suspect secondary to intracranial bleed, Post PEG placement 05/09/17. 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 GI Prophylaxis: Prevacid via PEG tube DVT Prophylaxis: Sequential compression devices, chemical prophylaxis contraindicated secondary to intracranial hemorrhage Discharge Planning Patient is stable to be discharged to rehabilitation facility. Case management assisting. Veena Calvillo Oct 17, 2017 10:35
[2017-10-17 12:00] VITALS: BP 123/84; PULSE 75; RESP 14; TEMP 96.2; O2SAT 99
[2017-10-17] MEDS ORDERED: HYDROmorphone HCL PF 2 MG/ML VIAL IV PUSH ONE (12:15)
--- NOTE | 2017-10-17 13:04 | PD.CONS ---
History of Present Illness Service Called to bedside for sacral wound as General Surgery and Colorectal service were unable to address the perirectal abscess/wound per the primary team. Informed consent was obtained from both the patient and the patient's son, Mr Henri Birmingham, who agreed. Risks, benefits, and alternatives were discussed. All questions were answered. Necrotic tissue was debrided from her sacrum. Purulence was expressed. 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 Wound packed with Dakins solution. Please change packing with Dakins bid. Consult Requested By Primary Care Physician Diagnoses: History of Present Illness Patient was found in the park with altered mental status and R weakness, found to be suffering from large left parenchymal hemorrhage was intraventricular extension on initial CT scan, now with prolonged hospital course without much improvement in mentation . Patient has had a h/o UTI and now has a sacral decubitus ulcer. Last 3 days patient has been having fevers. Started on Zosyn and now IV Vancomycin- with continued fevers so ID has been consulted. Past Family Social History Allergies: Coded Allergies: No Known Allergies (Unverified , 09/05/16) Physical Exam Vital Signs Vital Signs Date Time Temp Pulse Resp B/P (MAP) Pulse Ox O2 Delivery O2 Flow Rate FiO2 10/17/17 08:00 96.1 101 12 136/94 (108) 98 10/16/17 20:00 99.1 102 18 111/69 (83) 98 Physical Exam GENERAL: This is a well-nourished, well-developed patient, in no apparent distress. SKIN: No rashes, ecchymoses or lesions. Cool and dry. HEAD: Atraumatic. Normocephalic. No temporal or scalp tenderness. EYES: Pupils equal round and reactive. Extraocular motions intact. No scleral icterus. No injection or drainage. ENT: Nose without bleeding, purulent drainage or septal hematoma. Throat without erythema, tonsillar hypertrophy or exudate. Uvula midline. Airway patent. NECK: Trachea midline. No JVD or lymphadenopathy. Supple, nontender, no meningeal signs. CARDIOVASCULAR: Regular rate and rhythm without murmurs, gallops, or rubs. RESPIRATORY: Clear to auscultation. Breath sounds equal bilaterally. No wheezes , rales, or rhonchi. GASTROINTESTINAL: Abdomen soft, non-tender, nondistended. No hepato-splenomegaly , or palpable masses. No guarding. MUSCULOSKELETAL: Extremities without clubbing, cyanosis, or edema. No joint tenderness, effusion, or edema noted. No calf tenderness. Negative Homans sign bilaterally. NEUROLOGICAL: Awake and alert. Cranial nerves II through XII intact. Motor and sensory grossly within normal limits. Five out of 5 muscle strength in all muscle groups. Normal speech. Laboratory Laboratory Tests Test 10/16/17 21:30 10/17/17 06:00 Vancomycin Level Trough 15.7 Creatinine 0.60 Estimat Glomerular Filtration Rate 122 Date/Time Source Procedure Growth Status 10/10/17 08:10 Blood Peripheral Aerobic Blood Culture - Final NO GROWTH IN 5 DAYS Complete 10/10/17 08:10 Blood Peripheral Anaerobic Blood Culture - Final NO GROWTH IN 5 DAYS Complete 10/14/17 13:30 Nasal Aspirate Influenza Types A,B Antigen ([place]) - Final NEGATIVE FOR FLU A AND B ANTIGEN.... Complete 10/10/17 22:00 Urine Clean Catch Urine Culture - Final NO GROWTH IN 48 HOURS. Complete 10/13/17 10:00 Wound Skin Gram Stain - Final Complete 10/13/17 10:00 Wound Culture - Final Pseudomonas Aeruginosa Complete Result Diagram: 10/16/17 0447 10/17/17 0600 Rojelio Alcantar MD Oct 17, 2017 13:04
[2017-10-17] MEDS ORDERED: SODIUM HYPOCHLORITE 0.5% 500 ML BTL TOPICAL ONE (13:30)
[2017-10-17] MEDS: REMOVE OLD CATAPRES (CLONIDINE) PATCH T-DERMAL SCH (14:29)
[2017-10-17] MEDS: cloNIDine HCL 0.3 MG/24 HR PATCH T-DERMAL SCH (14:29)
[2017-10-17] MEDS ORDERED: MORPHINE SULFATE 4 MG/ML INJ IV PUSH PRN (15:00)
--- NOTE | 2017-10-17 15:26 | HHI.IDPN ---
Note Infectious Disease Note ID coverage. Temp lower. Patient had debridement of the sacral wound. Awake. non verbal. Antibiotics Vancomycin , Zosyn and Ciprofloxacin. Lines Peripheral IV line Past Medical History Intracranial Hemorrhage Hemiplegic. Allergies: Coded Allergies: No Known Allergies (Unverified , 09/05/16) OBJECTIVE: Vital Signs Date Time Temp Pulse Resp B/P (MAP) Pulse Ox O2 Delivery O2 Flow Rate FiO2 10/17/17 12:00 96.2 75 14 123/84 (97) 99 10/17/17 08:00 96.1 101 12 136/94 (108) 98 10/16/17 20:00 99.1 102 18 111/69 (83) 98 Vital Signs Date Time Temp Pulse Resp B/P (MAP) Pulse Ox O2 Delivery O2 Flow Rate FiO2 10/15/17 08:00 99.0 106 18 110/74 (86) 95 10/15/17 04:00 99.1 104 16 122/82 (95) 95 10/15/17 00:00 101.6 110 16 101/68 (79) 95 10/14/17 20:00 99.8 120 16 110/76 (87) 93 10/14/17 18:27 100 16 115/78 (90) 10/14/17 16:00 98.0 96 18 113/67 (82) 96 10/14/17 12:00 97.8 87 18 119/82 (94) 96 Laboratory Tests Test 10/16/17 04:47 White Blood Count 14.8 TH/MM3 Red Blood Count 3.60 MIL/MM3 Hemoglobin 10.3 GM/DL Hematocrit 31.0 % Mean Corpuscular Volume 86.1 FL Mean Corpuscular Hemoglobin 28.6 PG Mean Corpuscular Hemoglobin Concent 33.2 % Red Cell Distribution Width 14.5 % Platelet Count 400 TH/MM3 Mean Platelet Volume 8.3 FL Neutrophils (%) (Auto) 78.4 % Lymphocytes (%) (Auto) 12.4 % Monocytes (%) (Auto) 6.0 % Eosinophils (%) (Auto) 2.0 % Basophils (%) (Auto) 1.2 % Neutrophils # (Auto) 11.6 TH/MM3 Lymphocytes # (Auto) 1.8 TH/MM3 Monocytes # (Auto) 0.9 TH/MM3 Eosinophils # (Auto) 0.3 TH/MM3 Basophils # (Auto) 0.2 TH/MM3 CBC Comment AUTO DIFF Differential Comment AUTO DIFF CONFIRMED Laboratory Tests Test 10/16/17 04:47 10/17/17 06:00 Blood Urea Nitrogen 8 MG/DL Creatinine 0.26 MG/DL 0.60 MG/DL Random Glucose 97 MG/DL Calcium Level 8.4 MG/DL Magnesium Level 2.1 MG/DL Sodium Level 142 MEQ/L Potassium Level 3.9 MEQ/L Chloride Level 112 MEQ/L Carbon Dioxide Level 21.6 MEQ/L Anion Gap 8 MEQ/L Estimat Glomerular Filtration Rate 321 ML/MIN 122 ML/MIN PE limited by patient's inability to cooperate. GENERAL: Patient is in no acute distress. HEENT: EOMI, No icterus. Moist mucosa. NECK: Supple. LUNGS: Clear breath sounds. CARDIAC: Regular rate and rhythm. ABDOMEN: Soft, non tender. BACK: Sacrum decubitus wound dressing in place. EXTREMITIES: No CCE. SKIN: No rash. ASSESSMENT: Sacral decubitus ulcer/abscess. Culture has pseudomonas. Wound debrided 10/17/17. Fever. Temp lower. RECOMMEND: Continue Zosyn. Stop Vancomycin. Continue Ciprofloxacin. Monitor temp and clinical status. Ephraim Collins MD Oct 17, 2017 15:26
[2017-10-17 16:00] VITALS: BP 139/90; PULSE 83; RESP 12; TEMP 97.2; O2SAT 98
[2017-10-17 16:44] LABS: AUTOMATED NEUTROPHIL # 9.4 TH/MM3 (1.8-7.7); BASOPHIL # 0.1 TH/MM3 (0-0.2); BASOPHIL % 1.2 % (0.0-2.0); EOSINOPHIL # 0.2 TH/MM3 (0-0.4); HEMATOCRIT 34.7 % (35.0-46.0); HEMOGLOBIN 11.1 GM/DL (11.6-15.3); LYMPH % 12.3 % (9.0-44.0); LYMPHOCYTE # 1.5 TH/MM3 (1.0-4.8); MEAN CELL VOLUME 87.3 FL (80.0-100.0); MEAN CORPUSCULAR HEMOGLOBIN 27.9 PG (27.0-34.0); MEAN CORPUSCULAR HGB CONC 31.9 % (32.0-36.0); MEAN PLATELET VOLUME 8.1 FL (7.0-11.0); MONO % 8.3 % (0.0-8.0); NEUT % 76.2 % (16.0-70.0); PLATELET COUNT 441 TH/MM3 (150-450); RED BLOOD COUNT 3.97 MIL/MM3 (4.00-5.30); RED CELL DISTRIBUTION WIDTH 14.6 % (11.6-17.2); WHITE BLOOD COUNT 12.2 TH/MM3 (4.0-11.0)
[2017-10-17 17:03] LABS: CALCIUM 8.4 MG/DL (8.5-10.1); CREATININE 0.92 MG/DL (0.50-1.00)
[2017-10-17 17:04] LABS: BICARBONATE 21.6 MEQ/L (21.0-32.0)
[2017-10-17] MEDS ORDERED: NALOXONE HCL 0.4 MG/ML AMP IV PUSH PRN (17:30)
[2017-10-17] MEDS ORDERED: BACLOFEN 10 MG TAB PO ONE (17:45)
[2017-10-17] MEDS ORDERED: PILL SPLITTER OTHER PRN (17:45)
[2017-10-17] MEDS: ACETAMINOPHEN 325 MG TAB PEG PRN (19:29)
[2017-10-17 20:00] VITALS: BP 141/95; PULSE 106; RESP 18; TEMP 99.1; O2SAT 100
[2017-10-17] MEDS ORDERED: BENZTROPINE MESYLATE 2 MG/2 ML VIAL IV PUSH SCH (21:00)
[2017-10-18] VITALS: BP 170/100; PULSE 86; RESP 18; TEMP 98.5; O2SAT 98
[2017-10-18] MEDS: NIFEdipine 20 MG CAP PEG SCH ×4 (00:03→18:16)
[2017-10-18] MEDS: SODIUM HYPOCHLORITE 0.25% 500 ML BTL TOPICAL SCH ×3 (00:03→21:00)
[2017-10-18] MEDS: hydrALAZINE HCL 50 MG TAB PEG SCH ×4 (00:03→18:16)
[2017-10-18 04:00] VITALS: BP 139/82; PULSE 80; RESP 16; TEMP 97.8; O2SAT 99
[2017-10-18] MEDS: PIPERACIL-TAZO 3.375 GM PREMIX 50 ML IV SCH ×4 (05:31→18:27)
[2017-10-18 05:48] LABS: BASOPHIL # 0.1 TH/MM3 (0-0.2); EOSINOPHIL # 0.2 TH/MM3 (0-0.4); HEMOGLOBIN 10.1 GM/DL (11.6-15.3); LYMPH % 11.9 % (9.0-44.0); LYMPHOCYTE # 1.2 TH/MM3 (1.0-4.8); MEAN CELL VOLUME 86.9 FL (80.0-100.0); MEAN CORPUSCULAR HEMOGLOBIN 27.4 PG (27.0-34.0); MEAN CORPUSCULAR HGB CONC 31.5 % (32.0-36.0); MEAN PLATELET VOLUME 8.2 FL (7.0-11.0); MONO % 6.1 % (0.0-8.0); MONOCYTE # 0.6 TH/MM3 (0-0.9); PLATELET COUNT 523 TH/MM3 (150-450); RED BLOOD COUNT 3.69 MIL/MM3 (4.00-5.30); RED CELL DISTRIBUTION WIDTH 14.3 % (11.6-17.2); WHITE BLOOD COUNT 10.1 TH/MM3 (4.0-11.0)
--- NOTE | 2017-10-18 07:40 | HHI.PR ---
Subjective Remarks Follow up hemorrhagic CVA. Patient seen and examined, lying in bed sleeping. Awakens to voice. Rigidity improved overnight. Patient appears to be lying in bed comfortably. Denies any pain. Afebrile overnight. Continued sacral dressing changes. WBC trending down. Objective Vitals Vital Signs Date Time Temp Pulse Resp B/P (MAP) Pulse Ox O2 Delivery O2 Flow Rate FiO2 10/18/17 04:00 97.8 80 16 139/82 (101) 99 10/18/17 00:00 98.5 86 18 170/100 (123) 98 10/17/17 20:00 99.1 106 18 141/95 (110) 100 10/17/17 16:00 97.2 83 12 139/90 (106) 98 10/17/17 12:00 96.2 75 14 123/84 (97) 99 10/17/17 08:00 96.1 101 12 136/94 (108) 98 I/O 10/17/17 10/17/17 10/17/17 10/18/17 10/18/17 10/18/17 07:00 15:00 23:00 07:00 15:00 23:00 Intake Total 950 ml 1310 ml 550 ml 0 ml Output Total 1550 ml 1225 ml 1750 ml Balance -600 ml 1310 ml -675 ml -1750 ml Intake Oral 0 ml IV Total 950 ml 1310 ml 550 ml Output Urine Total 750 ml 1225 ml 1750 ml Stool Total 800 ml Result Diagram: 10/18/17 0443 10/17/17 1630 Imaging Last Impressions Pelvis CT 10/13/17 0000 Signed Impressions: Service Date/Time: Friday, October 13, 2017 12:02 - CONCLUSION: 1. Decubitus ulcer with small abscess in the right posterior perineal region measuring 3.1 x 4.6 cm. There is also a small abscess posterior and to the left of the rectum measuring 3.2 x 2.3 cm. Jann Weber MD Chest X-Ray 10/12/17 0000 Signed Impressions: Service Date/Time: October 12:18 - CONCLUSION: No acute disease. Jann Weber MD Upper Extremity Ultrasound 08/03/17 0000 Signed Impressions: Service Date/Time: July 04:13 - CONCLUSION: Normal examination. Adi Quarles MD Head CT 04/25/17 0000 Signed Impressions: Service Date/Time: Tuesday, April 25, 2017 18:02 - CONCLUSION: 1. Evolving left thalamic hematoma. No new hemorrhage. Adi Quarles MD Abdomen X-Ray 04/12/17 1538 Signed Impressions: Service Date/Time: Wednesday, April 12, 2017 17:29 - CONCLUSION: Nonobstructive bowel gas pattern. Suresh Zapata MD Neck CTA 04/10/17 0000 Signed Impressions: Service Date/Time: Monday, April 10, 2017 22:28 - CONCLUSION: The internal carotid arteries are normal bilaterally. No significant atherosclerotic disease is noted. Eliud Du MD Head CTA 04/10/17 0000 Signed Impressions: Service Date/Time: Monday, April 10, 2017 22:50 - CONCLUSION: Mild dilatation of the basilar tip without discrete aneurysm. Some narrowing of the left middle cerebral branch after the bifurcation. Prominent left thalamic hemorrhage. Eliud Du MD Objective Remarks GENERAL: Well-developed, well-nourished, in no acute distress. Awake, responds minimally with head nods, tracking with eyes. Expressive aphasic, attempts to speak intermittently. SKIN: Stage IV sacral wound noted, dressing in place. HEENT: Head is normocephalic without any lesions or masses noted. Facial features are symmetric. Eyes: Conjunctivae were clear. Skin on sacrum macerated , 4x4 in size, Mepilex. Continue to monitor. CARDIAC: Regular rhythm, regular rate. S1/S2 are heard. 2/6 ejection, no gallops or rubs. LUNGS: Clear to auscultation bilaterally. No wheeze, rhonchi or rales. No use of accessory muscles on inspiration or expiration. ABDOMEN: Soft, nontender. Nondistended. Bowel sounds heard in all 4 quadrants. No organomegaly or masses. Negative guarding. PEG tube noted without any signs of infection, skin c/d/i, dressing intact. No erythema. EXTREMITIES: No edema, pulses are equal bilaterally. No cyanosis or clubbing NEUROLOGY: Patient is moving left upper extremity and able to move left foot. Patient unable to move right upper and lower extremity. Procedures Peg Tube placed 05/08/17 (Dr. De Los Santos) A/P Assessment and Plan Sepsis with leukocytosis, febrile illness, tachycardia, sacral decubitus with perineal abscesses, ongoing Continue Zosyn IV/fluconazole IV, IV Vanco dcd. Continue monitor for infection Blood cultures negative to date. Urine culture no growth to date Wound culture from sacral wound growing Pseudomonas Aeruginosa. Influenza testing is negative. Infectious disease following with patient, appreciate recommendations. Continue IV fluids, electrolyte replacement as needed. CBC and BMP reviewed today, mild BECKY suspect secondary to infection vs dehydration. Continue IVF. CT of the pelvis that showed decubitus ulcer with small abscess in the right posterior perineal region and small abscess posterior and to the left rectum Patient with watery diarrhea at this time. C. difficile culture was negative Follow CBC in am. Sacral decubitus with perineal abscess, this will need incision, drainage and debridement Wound care nurse evaluated patient and made recommendations for wound care and surgical debridement 10/10/17. Gen. surgery was consulted for sacral decubitus. Was notified on 10/11/17 that general surgery does not do sacral decubitus debridement or surgeries 10/11/17. Case was discussed with plastic surgery who are actually not search consultant at this time. Dr. Lai was able to arrange for to evaluate the patient 10/12/17. Plastic surgery, , evaluated the patient who recommended Santyl at this time and possible debridement in the near future 10/13/17. Patient remains septic, CT of the pelvis was performed which did indicate multiple abscess in the right posterior perineal area and posterior and left of the rectum, 10/13/17. Discussed this with plastic surgery Dr. Lai, who indicated that these abscesses are 2 deep and to close to rectal mucosal for plastic surgery. He recommended consulting colorectal surgery 10/13/17. Dr. Franklin was search consultant for colorectal surgery, consult was placed to him for evaluation. Case was discussed with him on multiple occasions. He indicates that since this is connected to a sacral decubitus and since there is no communication with the rectum, this case is not appropriate for colorectal surgery, awaiting consultation report 10/15/17. Discussed with Dr. Abdullahi. He was planning a doing debridement of today, however was unable to obtain consent from family 10/17/17. Spoke with son, consents signed for I&D of sacral wound. Attempted to contact Dr. DeCesare and left voicemail with patient update. Will await surgery plans and recommendations. Debridement performed, patient tolerated well. Dressing change orders in place. Hypokalemia. Resolved. Likely secondary to likely wasting from diarrhea. Improved today. 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 Neurosurgery evaluated patient states no surgical intervention Continue PT/OT/ST Consulted as indicated patient is stable to be discharged to rehabilitation facility Case management consulted for inpatient rehabilitation, who indicated patient is homeless, no discharge disposition to inpatient rehabilitation Palliative care was consulted for recommendations. They recommended, see evaluation which has been done. Family wants aggressive measures and placement to be performed Psychiatry indicates that the patient does not have decision-making capacity to participate in her treatment or discharge plan. Palliative care has been reconsulted, patient will likely require multiple and ongoing surgical intervention, wound VAC, wound management. Would appreciate reevaluation. Spoke to son who continues to want aggressive measures. Plan is for palliative care to meet with son this afternoon,. Dysphagia suspect secondary to intracranial bleed, Post PEG placement 05/09/17. 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 GI Prophylaxis: Prevacid via PEG tube DVT Prophylaxis: Sequential compression devices, chemical prophylaxis contraindicated secondary to intracranial hemorrhage Discharge Planning Patient is stable to be discharged to rehabilitation facility. Case management assisting. Veena Calvillo Oct 18, 2017 07:40
[2017-10-18 07:50] VITALS: BP 130/84; PULSE 95; RESP 20; TEMP 98.7; O2SAT 95
[2017-10-18 07:50] LABS: CALCIUM 8.7 MG/DL (8.5-10.1)
[2017-10-18 07:54] LABS: CREATININE 1.1 MG/DL (0.50-1.00)
[2017-10-18] MEDS: LACTIC ACID (AMMONIUM LACTATE) 12% LOTION 225 GM BTL TOPICAL SCH ×2 (11:10→21:00)
[2017-10-18] MEDS: CIPROFLOXACIN 500 MG TAB PEG SCH ×2 (11:12→21:00)
[2017-10-18] MEDS: METOPROLOL TARTRATE 100 MG TAB PEG SCH ×2 (11:13→21:00)
[2017-10-18] MEDS: LISINOPRIL 20 MG TAB PEG SCH ×2 (11:13→21:00)
[2017-10-18] MEDS: LANSOPRAZOLE SOLUTAB 30 MG TAB G-TUBE SCH (11:23)
[2017-10-18] MEDS: SODIUM CHLOR 0.9% 1000 ML INJ 1,000 ML IV SCH (11:32)
[2017-10-18 11:50] VITALS: BP 158/96; PULSE 101; RESP 20; TEMP 99; O2SAT 99
[2017-10-18] MEDS: COLLAGENASE OINT 30 GM TUBE TOPICAL SCH ×2 (14:34→21:00)
[2017-10-18 15:48] VITALS: BP 144/86; PULSE 89; RESP 20; TEMP 97.9; O2SAT 99
--- NOTE | 2017-10-18 16:30 | HHI.IDPN ---
Note Infectious Disease Note ID coverage. Temp lower. Awake. Mouthing words. No distress. Antibiotics Zosyn Cipro. Lines Peripheral IV line Past Medical History Intracranial Hemorrhage Hemiplegic. Allergies: Coded Allergies: No Known Allergies (Unverified , 09/05/16) OBJECTIVE: Vital Signs Date Time Temp Pulse Resp B/P (MAP) Pulse Ox O2 Delivery O2 Flow Rate FiO2 10/17/17 12:00 96.2 75 14 123/84 (97) 99 10/17/17 08:00 96.1 101 12 136/94 (108) 98 10/16/17 20:00 99.1 102 18 111/69 (83) 98 Laboratory Tests Test 10/17/17 16:30 10/18/17 04:43 White Blood Count 12.2 TH/MM3 10.1 TH/MM3 Red Blood Count 3.97 MIL/MM3 3.69 MIL/MM3 Hemoglobin 11.1 GM/DL 10.1 GM/DL Hematocrit 34.7 % 32.0 % Mean Corpuscular Volume 87.3 FL 86.9 FL Mean Corpuscular Hemoglobin 27.9 PG 27.4 PG Mean Corpuscular Hemoglobin Concent 31.9 % 31.5 % Red Cell Distribution Width 14.6 % 14.3 % Platelet Count 441 TH/MM3 523 TH/MM3 Mean Platelet Volume 8.1 FL 8.2 FL Neutrophils (%) (Auto) 76.2 % 79.0 % Lymphocytes (%) (Auto) 12.3 % 11.9 % Monocytes (%) (Auto) 8.3 % 6.1 % Eosinophils (%) (Auto) 2.0 % 2.0 % Basophils (%) (Auto) 1.2 % 1.0 % Neutrophils # (Auto) 9.4 TH/MM3 8.0 TH/MM3 Lymphocytes # (Auto) 1.5 TH/MM3 1.2 TH/MM3 Monocytes # (Auto) 1.0 TH/MM3 0.6 TH/MM3 Eosinophils # (Auto) 0.2 TH/MM3 0.2 TH/MM3 Basophils # (Auto) 0.1 TH/MM3 0.1 TH/MM3 CBC Comment AUTO DIFF AUTO DIFF Differential Comment AUTO DIFF CONFIRMED AUTO DIFF CONFIRMED Laboratory Tests Test 10/17/17 06:00 10/17/17 16:30 10/18/17 04:43 Creatinine 0.60 MG/DL 0.92 MG/DL 1.10 MG/DL Estimat Glomerular Filtration Rate 122 ML/MIN 75 ML/MIN 61 ML/MIN Blood Urea Nitrogen 15 MG/DL 18 MG/DL Random Glucose 78 MG/DL 99 MG/DL Calcium Level 8.4 MG/DL 8.7 MG/DL Sodium Level 143 MEQ/L 143 MEQ/L Potassium Level 5.4 MEQ/L 4.3 MEQ/L Chloride Level 113 MEQ/L 111 MEQ/L Carbon Dioxide Level 21.6 MEQ/L 24.0 MEQ/L Anion Gap 8 MEQ/L 8 MEQ/L Total Creatine Kinase 55 U/L PE limited by patient's inability to cooperate. GENERAL: Patient is in no acute distress. HEENT: EOMI, No icterus. Moist mucosa. NECK: Supple. LUNGS: Clear breath sounds. CARDIAC: Regular rate and rhythm. ABDOMEN: Soft, non tender. BACK: Sacrum decubitus wound dressing in place. EXTREMITIES: No CCE. SKIN: No rash. ASSESSMENT: Sacral decubitus ulcer/abscess. Pseudomonas. Wound debrided 10/17/17. Fever. Temp lower. RECOMMEND: Continue Zosyn. Stop Ciprofloxacin. Monitor temp and clinical status. I would anticipate a 4 week course of antibiotics. Ephraim Collins MD Oct 18, 2017 16:30
[2017-10-18 20:00] VITALS: BP 121/71; PULSE 92; RESP 20; TEMP 99.4; O2SAT 97
[2017-10-19] MEDS: NIFEdipine 20 MG CAP PEG SCH ×4 (00:18→18:34)
[2017-10-19] MEDS: PIPERACIL-TAZO 3.375 GM PREMIX 50 ML IV SCH ×4 (00:18→18:00)
[2017-10-19] MEDS: hydrALAZINE HCL 50 MG TAB PEG SCH ×4 (00:18→18:00)
[2017-10-19 07:23] LABS: CREATININE 1.3 MG/DL (0.50-1.00)
[2017-10-19 08:00] VITALS: BP 114/69; PULSE 99; RESP 16; TEMP 98; O2SAT 97
--- NOTE | 2017-10-19 08:52 | HHI.PR ---
Subjective Remarks Follow up hemorrhagic CVA and sacral wound. Patient seen and examined. Dr. Abdullahi is at bedside to assess patient. No new change in patient condition. Afebrile > 48 hours. Less rigidity today. Patient awakens to voice. Follows commands in upper left extremity, minimal response in lower extremity. Right side flaccid. Continued dressing changes, Santyl added. VSS. Objective Vitals Vital Signs Date Time Temp Pulse Resp B/P (MAP) Pulse Ox O2 Delivery O2 Flow Rate FiO2 10/18/17 20:00 99.4 92 20 121/71 (88) 97 10/18/17 15:48 97.9 89 20 144/86 (105) 99 10/18/17 11:50 99.0 101 20 158/96 (116) 99 I/O 10/18/17 10/18/17 10/18/17 10/19/17 10/19/17 10/19/17 07:00 15:00 23:00 07:00 15:00 23:00 Intake Total 0 ml 590 ml 0 ml Output Total 1750 ml 2050 ml 1350 ml Balance -1750 ml -2050 ml 590 ml -1350 ml Intake Oral 0 ml 0 ml IV Total 590 ml Output Urine Total 1750 ml 2000 ml 1250 ml Stool Total 50 ml 100 ml # Bowel Movements 1 Result Diagram: 10/18/17 0443 10/19/17 0705 Imaging Last Impressions Pelvis CT 10/13/17 0000 Signed Impressions: Service Date/Time: Friday, October 13, 2017 12:02 - CONCLUSION: 1. Decubitus ulcer with small abscess in the right posterior perineal region measuring 3.1 x 4.6 cm. There is also a small abscess posterior and to the left of the rectum measuring 3.2 x 2.3 cm. Jann Weber MD Chest X-Ray 10/12/17 0000 Signed Impressions: Service Date/Time: October 12:18 - CONCLUSION: No acute disease. Jann Weber MD Upper Extremity Ultrasound 08/03/17 0000 Signed Impressions: Service Date/Time: July 04:13 - CONCLUSION: Normal examination. Adi Quarles MD Head CT 04/25/17 0000 Signed Impressions: Service Date/Time: Tuesday, April 25, 2017 18:02 - CONCLUSION: 1. Evolving left thalamic hematoma. No new hemorrhage. Adi Quarles MD Abdomen X-Ray 04/12/17 1538 Signed Impressions: Service Date/Time: Wednesday, April 12, 2017 17:29 - CONCLUSION: Nonobstructive bowel gas pattern. Suresh Zapata MD Neck CTA 04/10/17 0000 Signed Impressions: Service Date/Time: Monday, April 10, 2017 22:28 - CONCLUSION: The internal carotid arteries are normal bilaterally. No significant atherosclerotic disease is noted. Eliud Du MD Head CTA 04/10/17 0000 Signed Impressions: Service Date/Time: Monday, April 10, 2017 22:50 - CONCLUSION: Mild dilatation of the basilar tip without discrete aneurysm. Some narrowing of the left middle cerebral branch after the bifurcation. Prominent left thalamic hemorrhage. Eliud Du MD Objective Remarks GENERAL: Well-developed, well-nourished, in no acute distress. Awake, responds minimally with head nods, tracking with eyes. Expressive aphasic, attempts to speak intermittently. SKIN: Stage IV sacral wound noted, dressing in place. HEENT: Head is normocephalic without any lesions or masses noted. Facial features are symmetric. Eyes: Conjunctivae were clear. Skin on sacrum macerated , 4x4 in size, Mepilex. Continue to monitor. CARDIAC: Regular rhythm, regular rate. S1/S2 are heard. 2/6 ejection, no gallops or rubs. LUNGS: Clear to auscultation bilaterally. No wheeze, rhonchi or rales. No use of accessory muscles on inspiration or expiration. ABDOMEN: Soft, nontender. Nondistended. Bowel sounds heard in all 4 quadrants. No organomegaly or masses. Negative guarding. PEG tube noted without any signs of infection, skin c/d/i, dressing intact. No erythema. EXTREMITIES: No edema, pulses are equal bilaterally. No cyanosis or clubbing NEUROLOGY: Patient is moving left upper extremity and able to move left foot. Patient unable to move right upper and lower extremity. Procedures Peg Tube placed 05/08/17 (Dr. De Los Santos) A/P Assessment and Plan Sepsis with leukocytosis, febrile illness, tachycardia, sacral decubitus with perineal abscesses, ongoing Continue Zosyn. IV/fluconazole, IV Vanco and Cipro dcd. Continue monitor for infection Blood cultures negative to date. Urine culture no growth to date Wound culture from sacral wound growing Pseudomonas Aeruginosa. Influenza testing is negative. Infectious disease following with patient, appreciate recommendations. Anticipates up to 4 weeks of antibiotic treatment. Continue IV fluids, electrolyte replacement as needed. CBC and BMP reviewed today, mild BEKCY suspect secondary to infection vs dehydration. Continue IVF. Hold ADALBERTO, hold HTCZ. Add scheduled FWF. CT of the pelvis that showed decubitus ulcer with small abscess in the right posterior perineal region and small abscess posterior and to the left rectum Patient with watery diarrhea at this time. C. difficile culture was negative Follow CBC and BMP in am. Sacral decubitus with perineal abscess, this will need incision, drainage and debridement Wound care nurse evaluated patient and made recommendations for wound care and surgical debridement 10/10/17. Gen. surgery was consulted for sacral decubitus. Was notified on 10/11/17 that general surgery does not do sacral decubitus debridement or surgeries 10/11/17. Case was discussed with plastic surgery who are actually not neurological surgeon at this time. Dr. Lai was able to arrange for to evaluate the patient 10/12/17. Plastic surgery, , evaluated the patient who recommended Santyl at this time and possible debridement in the near future 10/13/17. Patient remains septic, CT of the pelvis was performed which did indicate multiple abscess in the right posterior perineal area and posterior and left of the rectum, 10/13/17. Discussed this with plastic surgery Dr. Lai, who indicated that these abscesses are 2 deep and to close to rectal mucosal for plastic surgery. He recommended consulting colorectal surgery 10/13/17. Dr. Franklin was neurological surgeon for colorectal surgery, consult was placed to him for evaluation. Case was discussed with him on multiple occasions. He indicates that since this is connected to a sacral decubitus and since there is no communication with the rectum, this case is not appropriate for colorectal surgery, awaiting consultation report 10/15/17. Discussed with Dr. Abdullahi. He was planning a doing debridement of today, however was unable to obtain consent from family 10/17/17. Spoke with son, consents signed for I&D of sacral wound. Attempted to contact Dr. Abdullahi and left voicemail with patient update. Will await surgery plans and recommendations. Debridement performed, patient tolerated well. Dressing change orders in place. Hypokalemia. Resolved. Likely secondary to likely wasting from diarrhea. Improved today. 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 Neurosurgery evaluated patient states no surgical intervention Continue PT/OT/ST Consulted as indicated patient is stable to be discharged to rehabilitation facility Case management consulted for inpatient rehabilitation, who indicated patient is homeless, no discharge disposition to inpatient rehabilitation Palliative care was consulted for recommendations. They recommended, see evaluation which has been done. Family wants aggressive measures and placement to be performed Psychiatry indicates that the patient does not have decision-making capacity to participate in her treatment or discharge plan. Palliative care has been reconsulted, patient will likely require multiple and ongoing surgical intervention, wound management. Would appreciate reevaluation. Spoke to son who continues to want aggressive measures. Dysphagia suspect secondary to intracranial bleed, Post PEG placement 05/09/17. Speech therapy indicates patient is nothing by mouth, to continue to follow and advance diet per exam Dietary consulted and made recommendations for bolus feeding Hypertension emergency, continue monitor blood pressure and adjust as needed Nifedipine 40 mg every 6 hours Lisinopril 10 mg twice daily on hold Apresoline 50 mg every 6 hours Catapres TTS 3 patch Metoprolol 100 mg twice daily HCTZ 25 mg daily, on hold Apresoline, clonidine, Vasotec as needed Hyperglycemia Hemoglobin A1c 6.2 Glucerna 1.5 bolus tube feeding Xeroderma on bilateral feet: Lac-Hydrin 12% Lotion continued. GI Prophylaxis: Prevacid via PEG tube DVT Prophylaxis: Sequential compression devices, chemical prophylaxis contraindicated secondary to intracranial hemorrhage Discharge Planning Patient is stable to be discharged to rehabilitation facility. Case management assisting. Veena Calvillo Oct 19, 2017 08:52
[2017-10-19] MEDS: LISINOPRIL 20 MG TAB PEG SCH (09:00)
[2017-10-19] MEDS: COLLAGENASE OINT 30 GM TUBE TOPICAL SCH ×2 (10:00→21:00)
[2017-10-19] MEDS: LANSOPRAZOLE SOLUTAB 30 MG TAB G-TUBE SCH (10:14)
[2017-10-19] MEDS: METOPROLOL TARTRATE 100 MG TAB PEG SCH ×2 (10:14→22:05)
[2017-10-19] MEDS: SODIUM CHLOR 0.9% 1000 ML INJ 1,000 ML IV SCH ×2 (10:15→21:17)
[2017-10-19] MEDS: LACTIC ACID (AMMONIUM LACTATE) 12% LOTION 225 GM BTL TOPICAL SCH ×2 (10:16→21:00)
[2017-10-19] MEDS: FREE WATER G-TUBE SCH ×2 (10:16→18:00)
[2017-10-19 12:00] VITALS: BP 136/90; PULSE 75; RESP 18; TEMP 96.5; O2SAT 98
--- NOTE | 2017-10-19 15:15 | HHI.HCPN ---
Reason for visit a. To assist with evaluation and management of symptoms including: dysphagia , aphasia, hemiparesis, pain. b. To assist medical decision maker(s) with: better understanding of current medical conditions; weighing benefits/burdens of medical treatment options; making medical treatment decisions. Subjective/Interval History 61-year-old who was brought in as a Nichol Holley on 04/10/2017 for altered mental status, right sided hemiparesis and a leftward gaze. She was nonverbal with a possible STEMI and hypertensive emergency (250s/150s). She was found to have an acute thalamic and intraventricular hemorrhage on left with 7mm of rightward midline shift. Eventually her name was determined to be Treva Miranda and her daughter (Annemarie Wallace) and son (Henri Birmingham) were located. The patient has showed minimal neurological recovery since her admission and remains with right hemiparesis, bilateral foot drop, dysphasia and aphasia. Patient arouses to verbal stimuli. Squeezes with her let hand on command. Patient attempting to mouth words when asked questions. Dr. Alcantar was consulted to evaluate patient's stage IV ulcer to sacral periosteum, tracking to perineum. Informed consent was obtained from the patient 's son. Necrotic tissue was debrided from the sacrum. Afebrile >48 hours. Patient remains on Zosyn. ID continues to following, anticipating a 4 week course of antibiotics. Palliative care was consulted to assist family in determining goals of care, update on medical conditions and determine if they wish to pursue aggressive treatment versus comfort care. Phone call was placed to the patient's daughter ( Grei Wallace) at her last known phone number but it has been disconnected. Will attempt to get updated contact information from the patient's son. Attempts were also made to contact Henri Birmingham and message was left at . The alternate phone number was not accepting incoming telephone calls. . Advance Directives Living Will: Never completed Health Care Surrogate: Never completed Durable Power of Hand Edge Bander: Never completed Objective Vital Signs Date Time Temp Pulse Resp B/P (MAP) Pulse Ox O2 Delivery O2 Flow Rate FiO2 10/19/17 12:00 96.5 75 18 136/90 (105) 98 10/19/17 08:00 98.0 99 16 114/69 (84) 97 10/18/17 20:00 99.4 92 20 121/71 (88) 97 10/18/17 15:48 97.9 89 20 144/86 (105) 99 Intake & Output 10/19/17 10/19/17 07:00 19:00 Intake Total 590 ml 0 ml Output Total 1350 ml Balance 590 ml -1350 ml Intake Oral 0 ml IV Total 590 ml Output Urine Total 1250 ml Stool Total 100 ml # Bowel Movements 1 . Physical Exam CONSTITUTIONAL/GENERAL: This is an adequately nourished patient, in no apparent distress. SKIN: No jaundice, rashes, or lesions. Sacral wound s/p debridement. Skin temperature appropriate. Not diaphoretic. HEAD: Atraumatic. Normocephalic. EYES: Pupils equal and round and reactive. No scleral icterus. No injection or drainage. NECK: Trachea midline. Supple, nontender. CARDIOVASCULAR: Regular rate and rhythm without murmurs, gallops, or rubs. No JVD. Peripheral pulses symmetric. RESPIRATORY/CHEST: Symmetric, unlabored respirations. Clear to auscultation. Breath sounds equal bilaterally. No wheezes, rales, or rhonchi. GASTROINTESTINAL: Abdomen soft, non-tender, nondistended. No hepato-splenomegaly , or palpable masses. No guarding. Bowel sounds present. PEG to LUQ without redness or drainage. Supervisor [employer] shield in place. GENITOURINARY: Without palpable bladder distension. Cruz catheter in place. MUSCULOSKELETAL: Bilateral foot drop, trace edema, has podus boots in place. NEUROLOGICAL: Arouses to verbal stimuli. Right sided hemiparesis, flaccid. Able to squeeze hand with left. Attempts to mouth words. PSYCHIATRIC: No obvious anxiety/depression on my visit . Diagnostic Tests Laboratory Laboratory Tests Test 10/16/17 21:30 10/17/17 06:00 10/17/17 16:30 10/18/17 04:43 Vancomycin Level Trough 15.7 MCG/ML (5.0-10.0) Creatinine 0.60 MG/DL (0.50-1.00) 0.92 MG/DL (0.50-1.00) 1.10 MG/DL (0.50-1.00) Estimat Glomerular Filtration Rate 122 ML/MIN (>89) 75 ML/MIN (>89) 61 ML/MIN (>89) White Blood Count 12.2 TH/MM3 (4.0-11.0) 10.1 TH/MM3 (4.0-11.0) Red Blood Count 3.97 MIL/MM3 (4.00-5.30) 3.69 MIL/MM3 (4.00-5.30) Hemoglobin 11.1 GM/DL (11.6-15.3) 10.1 GM/DL (11.6-15.3) Hematocrit 34.7 % (35.0-46.0) 32.0 % (35.0-46.0) Mean Corpuscular Volume 87.3 FL (80.0-100.0) 86.9 FL (80.0-100.0) Mean Corpuscular Hemoglobin 27.9 PG (27.0-34.0) 27.4 PG (27.0-34.0) Mean Corpuscular Hemoglobin Concent 31.9 % (32.0-36.0) 31.5 % (32.0-36.0) Red Cell Distribution Width 14.6 % (11.6-17.2) 14.3 % (11.6-17.2) Platelet Count 441 TH/MM3 (150-450) 523 TH/MM3 (150-450) Mean Platelet Volume 8.1 FL (7.0-11.0) 8.2 FL (7.0-11.0) Neutrophils (%) (Auto) 76.2 % (16.0-70.0) 79.0 % (16.0-70.0) Lymphocytes (%) (Auto) 12.3 % (9.0-44.0) 11.9 % (9.0-44.0) Monocytes (%) (Auto) 8.3 % (0.0-8.0) 6.1 % (0.0-8.0) Eosinophils (%) (Auto) 2.0 % (0.0-4.0) 2.0 % (0.0-4.0) Basophils (%) (Auto) 1.2 % (0.0-2.0) 1.0 % (0.0-2.0) Neutrophils # (Auto) 9.4 TH/MM3 (1.8-7.7) 8.0 TH/MM3 (1.8-7.7) Lymphocytes # (Auto) 1.5 TH/MM3 (1.0-4.8) 1.2 TH/MM3 (1.0-4.8) Monocytes # (Auto) 1.0 TH/MM3 (0-0.9) 0.6 TH/MM3 (0-0.9) Eosinophils # (Auto) 0.2 TH/MM3 (0-0.4) 0.2 TH/MM3 (0-0.4) Basophils # (Auto) 0.1 TH/MM3 (0-0.2) 0.1 TH/MM3 (0-0.2) CBC Comment AUTO DIFF AUTO DIFF Differential Comment AUTO DIFF CONFIRMED AUTO DIFF CONFIRMED Blood Urea Nitrogen 15 MG/DL (7-18) 18 MG/DL (7-18) Random Glucose 78 MG/DL (74-106) 99 MG/DL (74-106) Calcium Level 8.4 MG/DL (8.5-10.1) 8.7 MG/DL (8.5-10.1) Sodium Level 143 MEQ/L (136-145) 143 MEQ/L (136-145) Potassium Level 5.4 MEQ/L (3.5-5.1) 4.3 MEQ/L (3.5-5.1) Chloride Level 113 MEQ/L (98-107) 111 MEQ/L (98-107) Carbon Dioxide Level 21.6 MEQ/L (21.0-32.0) 24.0 MEQ/L (21.0-32.0) Anion Gap 8 MEQ/L (5-15) 8 MEQ/L (5-15) Total Creatine Kinase 55 U/L (26-192) Test 10/19/17 07:05 Creatinine 1.30 MG/DL (0.50-1.00) Estimat Glomerular Filtration Rate 50 ML/MIN (>89) . Result Diagram: 10/18/17 0443 10/19/17 0705 Procedures 05/08/17: PEG placement . Assessment and Plan Disease Oriented Problem List: (1) Intracranial hemorrhage Comment: left thalamic hemorrhage, due to hypertensive emergency. (2) Malignant hypertension Comment: complicated by non compliance with medication due to delusion and paranoia (3) Unspecified psychosis (4) Delusional disorder (5) Hemiparesis Comment: right (6) Psychosis Symptom Scale: (1) Dysphagia 0-10 Scale: Unable to quantify (2) Aphasia 0-10 Scale: Unable to quantify (3) Hemiparesis 0-10 Scale: Unable to quantify Pertinent Non-Medical Issues Psychosocial:hx of delusions, paranoia, bruno act, non-compliance, now with thalamic stroke. Pt also is pending SSI. Spiritual:denominational Legal:If not capacitated, surviving children, pt's daughter and son would be health care proxy. Son appears to be difficult to reach, per social media director. Ethical issues impacting care:none at this time. Important Contacts Aleena Wallace [phone]. Number is currently disconnected. Henri Birmingham [phone], . Prognosis Pt with psychiatric hx of delusions, paranoia, has extensive hospital stay of 160 plus days after a left thalamic stroke. Pt is peg tube dependent, with hemiperisis; but has been relatively stable since April. She is at risk of recurrent hospitalization and setbacks. However given no recent pneumonia episodes, or major complications, I feel given pt continue tube feedings, prognosis is > 6 months. Albumin is 3.6 since last check on 09/07/2017 Code Status: Full Code Plan PLAN: Legal decision maker: She has 2 children who serve as joint proxy. Goals: Aggressive by default CODE STATUS: FULL CODE COMMUNICATION: Patient's son decided to proceed with debridement of sacral wound, consents were obtained. Goals remain aggressive. SYMPTOMS: * Dysphasia: Repeatedly failed swallow evaluation. PEG tube placed., tolerating artificail nutrition * Aphasia: Secondary to left thalamus stroke. Able to nod her head intermittently to questions, but not consistently. * Right hemiparesis: Continues physical therapy. * Pain: Likely source of pain is bedbound status, invasive lines, large tunnelled sacral decubitus. Palliative care will continue to follow the patient during hospital course as condition evolves, to assist patient/decision-maker with understanding of their medical conditions, weighing benefits/burdens of treatment options, for clarification of goals of treatment. Additionally will assist with any symptoms of palliative concern. . Attestation To help prompt me to consider important information that might be impacting today's encounter and assessment, information from prior notes written by myself or my colleagues may have been "brought forward" into today's note. My signature on this note, however, is an attestation that I personally performed the exam, history, and/or decision-making noted today, and, unless otherwise indicated, the interactions with patient, family, and staff as well as the review of records all occurred today. I also attest that the listed assessment and stated plan reflect my best clinical judgment today based on the combination of historical information, prior notes, and today's exam/ interactions. When time spent is documented, it refers only to time spent today by the signer, or if indicated, combined time spent today by collaborating physician/nurse practitioner. . Ange Alfred Oct 19, 2017 15:14
--- NOTE | 2017-10-19 15:54 | HHI.IDPN ---
Note Infectious Disease Note ID coverage. Patient is sleepy. No distress. Afebrile. Antibiotics Zosyn Lines Peripheral IV line Past Medical History Intracranial Hemorrhage Hemiplegic. Allergies: Coded Allergies: No Known Allergies (Unverified , 09/05/16) OBJECTIVE: Vital Signs Date Time Temp Pulse Resp B/P (MAP) Pulse Ox O2 Delivery O2 Flow Rate FiO2 10/19/17 12:00 96.5 75 18 136/90 (105) 98 10/19/17 08:00 98.0 99 16 114/69 (84) 97 10/18/17 20:00 99.4 92 20 121/71 (88) 97 Laboratory Tests Test 10/17/17 16:30 10/18/17 04:43 White Blood Count 12.2 TH/MM3 10.1 TH/MM3 Red Blood Count 3.97 MIL/MM3 3.69 MIL/MM3 Hemoglobin 11.1 GM/DL 10.1 GM/DL Hematocrit 34.7 % 32.0 % Mean Corpuscular Volume 87.3 FL 86.9 FL Mean Corpuscular Hemoglobin 27.9 PG 27.4 PG Mean Corpuscular Hemoglobin Concent 31.9 % 31.5 % Red Cell Distribution Width 14.6 % 14.3 % Platelet Count 441 TH/MM3 523 TH/MM3 Mean Platelet Volume 8.1 FL 8.2 FL Neutrophils (%) (Auto) 76.2 % 79.0 % Lymphocytes (%) (Auto) 12.3 % 11.9 % Monocytes (%) (Auto) 8.3 % 6.1 % Eosinophils (%) (Auto) 2.0 % 2.0 % Basophils (%) (Auto) 1.2 % 1.0 % Neutrophils # (Auto) 9.4 TH/MM3 8.0 TH/MM3 Lymphocytes # (Auto) 1.5 TH/MM3 1.2 TH/MM3 Monocytes # (Auto) 1.0 TH/MM3 0.6 TH/MM3 Eosinophils # (Auto) 0.2 TH/MM3 0.2 TH/MM3 Basophils # (Auto) 0.1 TH/MM3 0.1 TH/MM3 CBC Comment AUTO DIFF AUTO DIFF Differential Comment AUTO DIFF CONFIRMED AUTO DIFF CONFIRMED Laboratory Tests Test 10/17/17 16:30 10/18/17 04:43 10/19/17 07:05 Blood Urea Nitrogen 15 MG/DL 18 MG/DL Creatinine 0.92 MG/DL 1.10 MG/DL 1.30 MG/DL Random Glucose 78 MG/DL 99 MG/DL Calcium Level 8.4 MG/DL 8.7 MG/DL Sodium Level 143 MEQ/L 143 MEQ/L Potassium Level 5.4 MEQ/L 4.3 MEQ/L Chloride Level 113 MEQ/L 111 MEQ/L Carbon Dioxide Level 21.6 MEQ/L 24.0 MEQ/L Anion Gap 8 MEQ/L 8 MEQ/L Estimat Glomerular Filtration Rate 75 ML/MIN 61 ML/MIN 50 ML/MIN Total Creatine Kinase 55 U/L IMAGING: Pelvis CT 10/13/17 0000 Signed Impressions: Service Date/Time: Friday, October 13, 2017 12:02 - CONCLUSION: 1. Decubitus ulcer with small abscess in the right posterior perineal region measuring 3.1 x 4.6 cm. There is also a small abscess posterior and to the left of the rectum measuring 3.2 x 2.3 cm. Jann Weber MD Chest X-Ray 10/12/17 Signed Impressions: Service Date/Time: October 12:18 - CONCLUSION: No acute disease. Jann Weber MD Upper Extremity Ultrasound 08/03/17 0000 Signed Impressions: Service Date/Time: July 04:13 - CONCLUSION: Normal examination. Adi Quarles MD Head CT 04/25/17 0000 Signed Impressions: Service Date/Time: Tuesday, April 25, 2017 18:02 - CONCLUSION: 1. Evolving left thalamic hematoma. No new hemorrhage. Adi Quarles MD Abdomen X-Ray 04/12/17 1538 Signed Impressions: Service Date/Time: Wednesday, April 12, 2017 17:29 - CONCLUSION: Nonobstructive bowel gas pattern. Suresh Zapata MD Neck CTA 04/10/17 Signed Impressions: Service Date/Time: Monday, April 10, 2017 22:28 - CONCLUSION: The internal carotid arteries are normal bilaterally. No significant atherosclerotic disease is noted. Eliud Du MD Head CTA 04/10/17 0000 Signed Impressions: Service Date/Time: Monday, April 10, 2017 22:50 - CONCLUSION: Mild dilatation of the basilar tip without discrete aneurysm. Some narrowing of the left middle cerebral branch after the bifurcation. Prominent left thalamic hemorrhage. Eliud Du MD PE limited by patient's inability to cooperate. GENERAL: Patient is in no acute distress. HEENT: EOMI, No icterus. Moist mucosa. NECK: Supple. LUNGS: Clear breath sounds. CARDIAC: Regular rate and rhythm. ABDOMEN: Soft, non tender. BACK: Sacrum decubitus wound dressing in place. EXTREMITIES: No CCE. SKIN: No rash. ASSESSMENT: Sacral decubitus ulcer/abscess. Pseudomonas. Wound debrided 10/17/17. Fever. Temp lower. Leukocytosis improved. RECOMMEND: Continue Zosyn x 4 weeks. Monitor temp and clinical status. Ephraim Collins MD Oct 19, 2017 15:54
[2017-10-19 18:05] VITALS: BP 163/103; PULSE 73; RESP 16; TEMP 96.1; O2SAT 100
[2017-10-19 20:00] VITALS: BP 146/85; PULSE 92; RESP 16; TEMP 98.5; O2SAT 100
[2017-10-20] VITALS: BP 119/76; PULSE 76; RESP 16; TEMP 98.4; O2SAT 98
[2017-10-20] MEDS: PIPERACIL-TAZO 3.375 GM PREMIX 50 ML IV SCH ×4 (00:27→17:50)
[2017-10-20] MEDS: hydrALAZINE HCL 50 MG TAB PEG SCH ×4 (00:27→17:52)
[2017-10-20] MEDS: NIFEdipine 20 MG CAP PEG SCH ×4 (00:27→17:52)
[2017-10-20 04:00] VITALS: BP 149/81; PULSE 76; RESP 14; TEMP 98.7; O2SAT 100
[2017-10-20] MEDS: FREE WATER G-TUBE SCH ×4 (05:32→17:53)
[2017-10-20 06:28] LABS: AUTOMATED NEUTROPHIL # 5.7 TH/MM3 (1.8-7.7); BASOPHIL % 0.3 % (0.0-2.0); EOSINOPHIL # 0.2 TH/MM3 (0-0.4); EOSINOPHIL % 2.8 % (0.0-4.0); HEMATOCRIT 30.9 % (35.0-46.0); HEMOGLOBIN 10.1 GM/DL (11.6-15.3); LYMPH % 16.4 % (9.0-44.0); LYMPHOCYTE # 1.3 TH/MM3 (1.0-4.8); MEAN CELL VOLUME 86.5 FL (80.0-100.0); MEAN CORPUSCULAR HEMOGLOBIN 28.3 PG (27.0-34.0); MEAN CORPUSCULAR HGB CONC 32.7 % (32.0-36.0); MEAN PLATELET VOLUME 7.6 FL (7.0-11.0); MONO % 10.3 % (0.0-8.0); MONOCYTE # 0.8 TH/MM3 (0-0.9); NEUT % 70.2 % (16.0-70.0); PLATELET COUNT 446 TH/MM3 (150-450); RED BLOOD COUNT 3.57 MIL/MM3 (4.00-5.30); RED CELL DISTRIBUTION WIDTH 14.7 % (11.6-17.2)
[2017-10-20 06:30] LABS: BICARBONATE 25.8 MEQ/L (21.0-32.0); CALCIUM 8.3 MG/DL (8.5-10.1)
[2017-10-20 06:34] LABS: CREATININE 1.2 MG/DL (0.50-1.00)
[2017-10-20 08:00] VITALS: BP 115/56; PULSE 93; RESP 16; TEMP 97.7; O2SAT 99
[2017-10-20] MEDS: COLLAGENASE OINT 30 GM TUBE TOPICAL SCH ×2 (09:00→20:27)
[2017-10-20] MEDS: METOPROLOL TARTRATE 100 MG TAB PEG SCH ×2 (09:21→20:27)
[2017-10-20] MEDS: LACTIC ACID (AMMONIUM LACTATE) 12% LOTION 225 GM BTL TOPICAL SCH ×2 (09:21→20:27)
[2017-10-20] MEDS: LANSOPRAZOLE SOLUTAB 30 MG TAB G-TUBE SCH (09:21)
[2017-10-20] MEDS: SODIUM CHLOR 0.9% 1000 ML INJ 1,000 ML IV SCH ×3 (09:22→20:27)
--- NOTE | 2017-10-20 11:52 | HHI.PR ---
Subjective Remarks Follow up hemorrhagic CVA and sacral wound. Patient seen and examined, lying in bed asleep, awakens to voice. No reports of any change in clinical condition overnight. Stable. VSS. Afebrile. [employer] Farm[employer] following for recs regarding TF and wound healing. Continued dressing changes. Objective Vitals Vital Signs Date Time Temp Pulse Resp B/P (MAP) Pulse Ox O2 Delivery O2 Flow Rate FiO2 10/20/17 11:23 14 10/20/17 08:00 97.7 93 16 115/56 (75) 99 10/20/17 04:00 98.7 76 14 149/81 (103) 100 10/20/17 00:00 98.4 76 16 119/76 (90) 98 10/19/17 20:00 98.5 92 16 146/85 (105) 100 10/19/17 18:05 96.1 73 16 163/103 (123) 100 10/19/17 12:00 96.5 75 18 136/90 (105) 98 I/O 10/19/17 10/19/17 10/19/17 10/20/17 10/20/17 10/20/17 07:00 15:00 23:00 07:00 15:00 23:00 Intake Total 1310 ml 0 ml 945 ml 240 ml Output Total 1350 ml 1350 ml 700 ml Balance 1310 ml -1350 ml -1350 ml 245 ml 240 ml Intake Oral 0 ml IV Total 590 ml 255 ml Tube Feeding 240 ml Tube Irrigant 120 ml 540 ml 90 ml Other 360 ml 150 ml 150 ml Output Urine Total 1250 ml 900 ml 700 ml Stool Total 100 ml 450 ml # Bowel Movements 1 100 Result Diagram: 10/20/17 0514 10/20/17 0514 Imaging Last Impressions Pelvis CT 10/13/17 0000 Signed Impressions: Service Date/Time: Friday, October 13, 2017 12:02 - CONCLUSION: 1. Decubitus ulcer with small abscess in the right posterior perineal region measuring 3.1 x 4.6 cm. There is also a small abscess posterior and to the left of the rectum measuring 3.2 x 2.3 cm. Jann Weber MD Chest X-Ray 10/12/17 0000 Signed Impressions: Service Date/Time: October 12:18 - CONCLUSION: No acute disease. Jann Weber MD Upper Extremity Ultrasound 08/03/17 0000 Signed Impressions: Service Date/Time: July 04:13 - CONCLUSION: Normal examination. Adi Quarles MD Head CT 04/25/17 0000 Signed Impressions: Service Date/Time: Tuesday, April 25, 2017 18:02 - CONCLUSION: 1. Evolving left thalamic hematoma. No new hemorrhage. Adi Quarles MD Abdomen X-Ray 04/12/17 1538 Signed Impressions: Service Date/Time: Wednesday, April 12, 2017 17:29 - CONCLUSION: Nonobstructive bowel gas pattern. Suresh Zapata MD Neck CTA 04/10/17 0000 Signed Impressions: Service Date/Time: Monday, April 10, 2017 22:28 - CONCLUSION: The internal carotid arteries are normal bilaterally. No significant atherosclerotic disease is noted. Eliud Du MD Head CTA 04/10/17 0000 Signed Impressions: Service Date/Time: Monday, April 10, 2017 22:50 - CONCLUSION: Mild dilatation of the basilar tip without discrete aneurysm. Some narrowing of the left middle cerebral branch after the bifurcation. Prominent left thalamic hemorrhage. Eliud Du MD Objective Remarks GENERAL: Well-developed, well-nourished, in no acute distress. Awake, responds minimally with head nods, tracking with eyes. Expressive aphasic, attempts to speak intermittently. SKIN: Stage IV sacral wound noted, dressing in place. HEENT: Head is normocephalic without any lesions or masses noted. Facial features are symmetric. Eyes: Conjunctivae were clear. Skin on sacrum macerated , 4x4 in size, Mepilex. Continue to monitor. CARDIAC: Regular rhythm, regular rate. S1/S2 are heard. 2/6 ejection, no gallops or rubs. LUNGS: Clear to auscultation bilaterally. No wheeze, rhonchi or rales. No use of accessory muscles on inspiration or expiration. ABDOMEN: Soft, nontender. Nondistended. Bowel sounds heard in all 4 quadrants. No organomegaly or masses. Negative guarding. PEG tube noted without any signs of infection, skin c/d/i, dressing intact. No erythema. EXTREMITIES: No edema, pulses are equal bilaterally. No cyanosis or clubbing NEUROLOGY: Patient is moving left upper extremity and able to move left foot. Patient unable to move right upper and lower extremity. Procedures Peg Tube placed 05/08/17 (Dr. De Los Santos) A/P Assessment and Plan Sepsis with leukocytosis, febrile illness, tachycardia, sacral decubitus with perineal abscesses, ongoing Continue Zosyn. IV/fluconazole, IV Vanco and Cipro dcd. Continue monitor for infection Blood cultures negative to date. Urine culture no growth to date Wound culture from sacral wound growing Pseudomonas Aeruginosa. Influenza testing is negative. Infectious disease following with patient, appreciate recommendations. Anticipates up to 4 weeks of antibiotic treatment. Continue IV fluids, electrolyte replacement as needed. CBC and BMP reviewed today, mild BECKY suspect secondary to infection vs dehydration, trending down. Continue IVF. Hold ADALBERTO, hold HTCZ. Continue FWF. CT of the pelvis that showed decubitus ulcer with small abscess in the right posterior perineal region and small abscess posterior and to the left rectum Patient with watery diarrhea at this time. C. difficile culture was negative Sacral decubitus with perineal abscess, this will need incision, drainage and debridement Wound care nurse evaluated patient and made recommendations for wound care and surgical debridement 10/10/17. Gen. surgery was consulted for sacral decubitus. Was notified on 10/11/17 that general surgery does not do sacral decubitus debridement or surgeries 10/11/17. Case was discussed with plastic surgery who are actually not receptionist secretary at this time. Dr. Lai was able to arrange for to evaluate the patient 10/12/17. Plastic surgery, , evaluated the patient who recommended Santyl at this time and possible debridement in the near future 10/13/17. Patient remains septic, CT of the pelvis was performed which did indicate multiple abscess in the right posterior perineal area and posterior and left of the rectum, 10/13/17. Discussed this with plastic surgery Dr. Lai, who indicated that these abscesses are 2 deep and to close to rectal mucosal for plastic surgery. He recommended consulting colorectal surgery 10/13/17. Dr. Franklin was receptionist secretary for colorectal surgery, consult was placed to him for evaluation. Case was discussed with him on multiple occasions. He indicates that since this is connected to a sacral decubitus and since there is no communication with the rectum, this case is not appropriate for colorectal surgery, awaiting consultation report 10/15/17. Discussed with Dr. Abdullahi. He was planning a doing debridement of today, however was unable to obtain consent from family 10/17/17. Spoke with son, consents signed for I&D of sacral wound. Attempted to contact Dr. Abdullahi and left voicemail with patient update. Will await surgery plans and recommendations. Debridement performed, patient tolerated well. Dressing change orders in place. 10/19/17 Santyl to wound bed. EARL Pollack. Hypokalemia. Resolved. Likely secondary to likely wasting from diarrhea. Improved today. 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 Neurosurgery evaluated patient states no surgical intervention Continue PT/OT/ST Consulted as indicated patient is stable to be discharged to rehabilitation facility Case management consulted for inpatient rehabilitation, who indicated patient is homeless, no discharge disposition to inpatient rehabilitation Palliative care was consulted for recommendations. They recommended, see evaluation which has been done. Family wants aggressive measures and placement to be performed Psychiatry indicates that the patient does not have decision-making capacity to participate in her treatment or discharge plan. Palliative care has been reconsulted, patient requiring wound management. Spoke to son who continues to want aggressive measures. Dysphagia suspect secondary to intracranial bleed, Post PEG placement 05/09/17. Speech therapy indicates patient is nothing by mouth, to continue to follow and advance diet per exam Dietary consulted and made recommendations for bolus feeding Hypertension emergency, continue monitor blood pressure and adjust as needed Nifedipine 40 mg every 6 hours Lisinopril 10 mg twice daily on hold Apresoline 50 mg every 6 hours Catapres TTS 3 patch Metoprolol 100 mg twice daily HCTZ 25 mg daily, on hold Apresoline, clonidine, Vasotec as needed Hyperglycemia Hemoglobin A1c 6.2 Glucerna 1.5 bolus tube feeding Xeroderma on bilateral feet: Lac-Hydrin 12% Lotion continued. GI Prophylaxis: Prevacid via PEG tube DVT Prophylaxis: Sequential compression devices, chemical prophylaxis contraindicated secondary to intracranial hemorrhage Discharge Planning Patient is stable to be discharged to rehabilitation facility. Case management assisting. Veena Calvillo Oct 20, 2017 11:52
[2017-10-20 13:29] LABS: ALBUMIN 2.4 GM/DL (3.4-5.0)
[2017-10-20 13:34] LABS: TOTAL PROTEIN 6.2 GM/DL (6.4-8.2)
--- NOTE | 2017-10-20 13:42 | HHI.PR ---
Subjective Remarks Delayed entry from 10/19/17 0730 No acute changes overnight. Pt doing well per nursing. Febrile morbidity resolving Objective Vital Signs Date Time Temp Pulse Resp B/P (MAP) Pulse Ox O2 Delivery O2 Flow Rate FiO2 10/20/17 11:23 14 10/20/17 08:00 97.7 93 16 115/56 (75) 99 10/20/17 04:00 98.7 76 14 149/81 (103) 100 10/20/17 00:00 98.4 76 16 119/76 (90) 98 10/19/17 20:00 98.5 92 16 146/85 (105) 100 10/19/17 18:05 96.1 73 16 163/103 (123) 100 I/O 10/19/17 10/19/17 10/19/17 10/20/17 10/20/17 10/20/17 07:00 15:00 23:00 07:00 15:00 23:00 Intake Total 1310 ml 0 ml 945 ml 240 ml Output Total 1350 ml 1350 ml 700 ml Balance 1310 ml -1350 ml -1350 ml 245 ml 240 ml Intake Oral 0 ml IV Total 590 ml 255 ml Tube Feeding 240 ml Tube Irrigant 120 ml 540 ml 90 ml Other 360 ml 150 ml 150 ml Output Urine Total 1250 ml 900 ml 700 ml Stool Total 100 ml 450 ml # Bowel Movements 1 100 Dressing removed. Wound examined. No signs of surrounding cellulitis. Undermining has not worsened. Result Diagram: 10/20/1714 10/20/17 0514 Procedures No procedures performed Assessment and Plan Problem List: (1) Sacral decubitus ulcer ICD Codes: L89.159 - Pressure ulcer of sacral region, unspecified stage Status: Chronic Plan: Assessment plan Recommend returning to [facility] twice a day. Primary to check prealbumin, albumin , total protein, and serum transferrin to better assess nutrition. Problem Qualifiers (1) Sacral decubitus ulcer: Qualified Codes: L89.150 - Pressure ulcer of sacral region, unstageable DeCesare,Rojelio Mehta MD Oct 20, 2017 13:42
[2017-10-20 16:00] VITALS: BP 112/78; PULSE 70; RESP 14; TEMP 96.8; O2SAT 100
[2017-10-20] MEDS ORDERED: SODIUM CHLORID 0.9% 500 ML INJ 500 ML IV SCH (17:30)
[2017-10-20] MEDS ORDERED: SODIUM CHLORID 0.9% 500 ML INJ 500 ML IV ONE (18:00)
[2017-10-20 20:00] VITALS: BP 140/75; PULSE 84; RESP 18; TEMP 98.7; O2SAT 100
[2017-10-21] MEDS: FREE WATER G-TUBE SCH ×4 (00:29→18:00)
[2017-10-21] MEDS: NIFEdipine 20 MG CAP PEG SCH ×4 (00:29→18:00)
[2017-10-21] MEDS: hydrALAZINE HCL 50 MG TAB PEG SCH ×4 (00:29→18:00)
[2017-10-21] MEDS: PIPERACIL-TAZO 3.375 GM PREMIX 50 ML IV SCH ×4 (00:29→18:00)
[2017-10-21] MEDS: MORPHINE SULFATE 2 MG/ML SYRINGE IV PUSH PRN (06:05)
[2017-10-21 08:00] VITALS: BP 176/98; PULSE 75; RESP 17; TEMP 98.5; O2SAT 94
[2017-10-21 08:04] LABS: BICARBONATE 23.6 MEQ/L (21.0-32.0); CALCIUM 8.1 MG/DL (8.5-10.1)
[2017-10-21 08:08] LABS: CREATININE 1.1 MG/DL (0.50-1.00)
[2017-10-21] MEDS: COLLAGENASE OINT 30 GM TUBE TOPICAL SCH ×2 (09:00→21:38)
[2017-10-21] MEDS: METOPROLOL TARTRATE 100 MG TAB PEG SCH ×2 (09:14→21:39)
[2017-10-21] MEDS: LANSOPRAZOLE SOLUTAB 30 MG TAB G-TUBE SCH (09:15)
[2017-10-21] MEDS: LACTIC ACID (AMMONIUM LACTATE) 12% LOTION 225 GM BTL TOPICAL SCH ×2 (09:15→21:38)
--- NOTE | 2017-10-21 09:55 | HHI.PR ---
Subjective Remarks Follow up hemorrhagic CVA and stage IV sacral wound. Patient seen and examined, lying in bed awake and alert. RN at bedside with no reports of any new acute events overnight. Patient is stable. Wound care performed this am. VSS. Afebrile. Continue liquid stool in [place]. Continued Cruz. Objective Vitals Vital Signs Date Time Temp Pulse Resp B/P (MAP) Pulse Ox O2 Delivery O2 Flow Rate FiO2 10/21/17 08:00 98.5 75 17 176/98 (124) 94 10/20/17 20:00 98.7 84 18 140/75 (96) 100 10/20/17 16:00 96.8 70 14 112/78 (89) 100 10/20/17 11:23 14 I/O 10/20/17 10/20/17 10/20/17 10/21/17 10/21/17 10/21/17 07:00 15:00 23:00 07:00 15:00 23:00 Intake Total 945 ml 290 ml 2070 ml 100 ml Output Total 700 ml 900 ml 550 ml Balance 245 ml 290 ml 1170 ml -450 ml Intake Oral 0 ml IV Total 255 ml 50 ml 2070 ml 100 ml Tube Irrigant 540 ml 90 ml Other 150 ml 150 ml Output Urine Total 700 ml 900 ml 550 ml # Bowel Movements 100 Result Diagram: 10/20/17 0514 10/21/17 0650 Imaging Last Impressions Pelvis CT 10/13/17 0000 Signed Impressions: Service Date/Time: Friday, October 13, 2017 12:02 - CONCLUSION: 1. Decubitus ulcer with small abscess in the right posterior perineal region measuring 3.1 x 4.6 cm. There is also a small abscess posterior and to the left of the rectum measuring 3.2 x 2.3 cm. Jann Weber MD Chest X-Ray 10/12/17 0000 Signed Impressions: Service Date/Time: October 12:18 - CONCLUSION: No acute disease. Jann Weber MD Upper Extremity Ultrasound 08/03/17 0000 Signed Impressions: Service Date/Time: July 04:13 - CONCLUSION: Normal examination. Adi Quarles MD Head CT 04/25/17 0000 Signed Impressions: Service Date/Time: Tuesday, April 25, 2017 18:02 - CONCLUSION: 1. Evolving left thalamic hematoma. No new hemorrhage. Adi Quarles MD Abdomen X-Ray 04/12/17 1538 Signed Impressions: Service Date/Time: Wednesday, April 12, 2017 17:29 - CONCLUSION: Nonobstructive bowel gas pattern. Suresh Zapata MD Neck CTA 04/10/17 0000 Signed Impressions: Service Date/Time: Monday, April 10, 2017 22:28 - CONCLUSION: The internal carotid arteries are normal bilaterally. No significant atherosclerotic disease is noted. Eliud Du MD Head CTA 04/10/17 0000 Signed Impressions: Service Date/Time: Monday, April 10, 2017 22:50 - CONCLUSION: Mild dilatation of the basilar tip without discrete aneurysm. Some narrowing of the left middle cerebral branch after the bifurcation. Prominent left thalamic hemorrhage. Eliud Du MD Objective Remarks GENERAL: Well-developed, well-nourished, in no acute distress. Awake, responds minimally with head nods, tracking with eyes. Expressive aphasic, attempts to speak intermittently. SKIN: Stage IV sacral wound noted, dressing in place. HEENT: Head is normocephalic without any lesions or masses noted. Facial features are symmetric. Eyes: Conjunctivae were clear. Skin on sacrum macerated , 4x4 in size, Mepilex. Continue to monitor. CARDIAC: Regular rhythm, regular rate. S1/S2 are heard. 2/6 ejection, no gallops or rubs. LUNGS: Clear to auscultation bilaterally. No wheeze, rhonchi or rales. No use of accessory muscles on inspiration or expiration. ABDOMEN: Soft, nontender. Nondistended. Bowel sounds heard in all 4 quadrants. No organomegaly or masses. Negative guarding. PEG tube noted without any signs of infection, skin c/d/i, dressing intact. No erythema. EXTREMITIES: No edema, pulses are equal bilaterally. No cyanosis or clubbing NEUROLOGY: Patient is moving left upper extremity and able to move left foot. Patient unable to move right upper and lower extremity. Procedures Peg Tube placed 05/08/17 (Dr. De Los Santos) Urinary Catheter: Yes Assessment to: Continue Cruz insert reason: Stage III/IV Press Ulcer Date of Insertion: Oct 11, 2017 A/P Assessment and Plan Sepsis with leukocytosis, febrile illness, tachycardia, sacral decubitus with perineal abscesses, ongoing Continue Zosyn end date 11/10/16 per ID. IV/fluconazole, IV Vanco and Cipro dcd. Continue monitor for infection Blood cultures negative to date. Urine culture no growth to date Wound culture from sacral wound growing Pseudomonas Aeruginosa. Influenza testing is negative. Infectious disease following with patient, appreciate recommendations. Anticipates up to 4 weeks of antibiotic treatment end date 11/10/16. Continue IV fluids, electrolyte replacement as needed. CBC and BMP reviewed today, mild BECKY suspect secondary to infection vs dehydration, trending down. Continue IVF. Hold ADALBERTO, hold HTCZ. Continue FWF. CT of the pelvis that showed decubitus ulcer with small abscess in the right posterior perineal region and small abscess posterior and to the left rectum Patient with watery diarrhea at this time. C. difficile culture was negative Sacral decubitus with perineal abscess, this will need incision, drainage and debridement Wound care nurse evaluated patient and made recommendations for wound care and surgical debridement 10/10/17. Gen. surgery was consulted for sacral decubitus. Was notified on 10/11/17 that general surgery does not do sacral decubitus debridement or surgeries 10/11/17. Case was discussed with plastic surgery who are actually not decision support analyst at this time. Dr. Lai was able to arrange for to evaluate the patient 10/12/17. Plastic surgery, , evaluated the patient who recommended Santyl at this time and possible debridement in the near future 10/13/17. Patient remains septic, CT of the pelvis was performed which did indicate multiple abscess in the right posterior perineal area and posterior and left of the rectum, 10/13/17. Discussed this with plastic surgery Dr. Lai, who indicated that these abscesses are 2 deep and to close to rectal mucosal for plastic surgery. He recommended consulting colorectal surgery 10/13/17. Dr. Franklin was decision support analyst for colorectal surgery, consult was placed to him for evaluation. Case was discussed with him on multiple occasions. He indicates that since this is connected to a sacral decubitus and since there is no communication with the rectum, this case is not appropriate for colorectal surgery, awaiting consultation report 10/15/17. Discussed with Dr. Abdullahi. He was planning a doing debridement of today, however was unable to obtain consent from family 10/17/17. Spoke with son, consents signed for I&D of sacral wound. Attempted to contact Dr. Abdullahi and left voicemail with patient update. Will await surgery plans and recommendations. Debridement performed, patient tolerated well. Dressing change orders in place. 10/19/17 Santyl to wound bed. DC Dakins. Continue BID dressing changes. Hypokalemia. Resolved. Likely secondary to likely wasting from diarrhea. Improved today. 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 Neurosurgery evaluated patient states no surgical intervention Continue PT/OT/ST Consulted as indicated patient is stable to be discharged to rehabilitation facility Case management consulted for inpatient rehabilitation, who indicated patient is homeless, no discharge disposition to inpatient rehabilitation Palliative care was consulted for recommendations. They recommended, see evaluation which has been done. Family wants aggressive measures and placement to be performed Psychiatry indicates that the patient does not have decision-making capacity to participate in her treatment or discharge plan. Palliative care has been reconsulted, patient requiring wound management. Spoke to son who continues to want aggressive measures. Dysphagia suspect secondary to intracranial bleed, Post PEG placement 05/09/17. Speech therapy indicates patient is nothing by mouth, to continue to follow and advance diet per exam Dietary consulted and made recommendations for bolus feeding Hypertension emergency, continue monitor blood pressure and adjust as needed Nifedipine 40 mg every 6 hours Lisinopril 10 mg twice daily on hold Apresoline 50 mg every 6 hours Catapres TTS 3 patch Metoprolol 100 mg twice daily HCTZ 25 mg daily, on hold Apresoline, clonidine, Vasotec as needed Hyperglycemia Hemoglobin A1c 6.2 Glucerna 1.5 bolus tube feeding Xeroderma on bilateral feet: Lac-Hydrin 12% Lotion continued. GI Prophylaxis: Prevacid via PEG tube DVT Prophylaxis: Sequential compression devices, chemical prophylaxis contraindicated secondary to intracranial hemorrhage Discharge Planning Patient is stable to be discharged to rehabilitation facility. Case management assisting. Veena Calvillo Oct 21, 2017 09:55
[2017-10-21 12:00] VITALS: BP 182/95; PULSE 67; RESP 16; TEMP 98.5; O2SAT 93
[2017-10-21 16:00] VITALS: BP 165/91; PULSE 89; RESP 19; TEMP 98.3; O2SAT 93
--- NOTE | 2017-10-21 19:10 | HHI.PR ---
Subjective Subjective Notes pt sitting up in bed eating states had 4 bms last evening Objective Vitals/I&O Vital Signs Date Time Temp Pulse Resp B/P (MAP) Pulse Ox O2 Delivery O2 Flow Rate FiO2 10/21/17 16:00 98.3 89 19 165/91 (115) 93 Labs Laboratory Tests Test 10/21/17 06:50 Blood Urea Nitrogen 21 Creatinine 1.10 Random Glucose 81 Calcium Level 8.1 Sodium Level 148 Potassium Level 3.5 Chloride Level 116 Carbon Dioxide Level 23.6 Anion Gap 8 Estimat Glomerular Filtration Rate 61 Date/Time Source Procedure Growth Status 10/10/17 08:10 Blood Peripheral Aerobic Blood Culture - Final NO GROWTH IN 5 DAYS Complete 10/10/17 08:10 Blood Peripheral Anaerobic Blood Culture - Final NO GROWTH IN 5 DAYS Complete 10/14/17 13:30 Nasal Aspirate Influenza Types A,B Antigen ([place]) - Final NEGATIVE FOR FLU A AND B ANTIGEN.... Complete 10/10/17 22:00 Urine Clean Catch Urine Culture - Final NO GROWTH IN 48 HOURS. Complete 10/13/17 10:00 Wound Skin Gram Stain - Final Complete 10/13/17 10:00 Wound Culture - Final Pseudomonas Aeruginosa Complete Abdomen: Post-op tenderness Extremities: Perfused Wound Wound : Wound Location: Abdomen Appearance: Clean & Dry A/P Assessment and Plan s/p ex lap DARLINE tolerating diet d/c Reglan cont pt/ot Aristides Baca MD Oct 21, 2017 19:10
[2017-10-21 20:00] VITALS: BP 174/93; PULSE 69; RESP 18; TEMP 97.4; O2SAT 94
[2017-10-21] MEDS: SODIUM CHLOR 0.9% 1000 ML INJ 1,000 ML IV SCH (21:38)
[2017-10-21] MEDS: hydrALAZINE HCL 25 MG TAB PEG PRN (21:39)
[2017-10-22] MEDS ORDERED: diphenhydrAMINE HCL ELIXIR 12.5 MG/5 ML CUP PO ONE (00:15)
[2017-10-22] MEDS: PIPERACIL-TAZO 3.375 GM PREMIX 50 ML IV SCH ×2 (00:43→05:38)
[2017-10-22] MEDS: hydrALAZINE HCL 50 MG TAB PEG SCH ×4 (01:05→17:51)
[2017-10-22] MEDS: NIFEdipine 20 MG CAP PEG SCH ×4 (01:06→17:51)
[2017-10-22 04:00] VITALS: BP 119/71; PULSE 69
[2017-10-22] MEDS: FREE WATER G-TUBE SCH ×4 (05:51→17:51)
[2017-10-22 08:00] VITALS: BP 139/84; PULSE 72; RESP 18; TEMP 98; O2SAT 94
[2017-10-22] MEDS: SODIUM CHLOR 0.9% 1000 ML INJ 1,000 ML IV SCH ×2 (08:07→18:36)
[2017-10-22] MEDS: COLLAGENASE OINT 30 GM TUBE TOPICAL SCH ×2 (09:00→21:58)
[2017-10-22] MEDS: LACTIC ACID (AMMONIUM LACTATE) 12% LOTION 225 GM BTL TOPICAL SCH ×2 (09:00→21:57)
[2017-10-22] MEDS: METOPROLOL TARTRATE 100 MG TAB PEG SCH ×2 (09:39→21:57)
[2017-10-22] MEDS: LANSOPRAZOLE SOLUTAB 30 MG TAB G-TUBE SCH (09:39)
[2017-10-22] MEDS: MORPHINE SULFATE 2 MG/ML SYRINGE IV PUSH PRN (09:40)
[2017-10-22 12:00] VITALS: BP 136/82; PULSE 67; RESP 16; TEMP 97.6; O2SAT 100
[2017-10-22] MEDS: PIPERACILLIN/TAZ 3.375 GM VIAL 3.375 GM in SODIUM CHLORIDE 0.9% INJ 100 ML IV SCH ×2 (13:10→17:54)
--- NOTE | 2017-10-22 14:22 | HHI.PR ---
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 Patient seen and examined, lying in bed sleeping. Awakens to voice. No change in clinical condition. No reports of acute events overnight. Objective Vitals Vital Signs Date Time Temp Pulse Resp B/P (MAP) Pulse Ox O2 Delivery O2 Flow Rate FiO2 10/22/17 12:00 97.6 67 16 136/82 (100) 100 10/22/17 08:00 98.0 72 18 139/84 (102) 94 10/22/17 04:00 69 119/71 (87) 10/21/17 20:00 97.4 69 18 174/93 (120) 94 10/21/17 16:00 98.3 89 19 165/91 (115) 93 I/O 10/21/17 10/21/17 10/21/17 10/22/17 10/22/17 10/22/17 07:00 15:00 23:00 07:00 15:00 23:00 Intake Total 100 ml 800 ml 300 ml Output Total 550 ml 1600 ml 2100 ml Balance -450 ml -1600 ml -1300 ml 300 ml Intake Oral 0 ml 0 ml IV Total 100 ml 800 ml 300 ml Output Urine Total 550 ml 600 ml 2100 ml Stool Total 1000 ml Result Diagram: 10/20/17 0514 10/21/17 0650 Imaging Last Impressions Pelvis CT 10/13/17 0000 Signed Impressions: Service Date/Time: Friday, October 13, 2017 12:02 - CONCLUSION: 1. Decubitus ulcer with small abscess in the right posterior perineal region measuring 3.1 x 4.6 cm. There is also a small abscess posterior and to the left of the rectum measuring 3.2 x 2.3 cm. Jann Weber MD Chest X-Ray 10/12/17 0000 Signed Impressions: Service Date/Time: October 12:18 - CONCLUSION: No acute disease. Jann Weber MD Upper Extremity Ultrasound 08/03/17 0000 Signed Impressions: Service Date/Time: July 04:13 - CONCLUSION: Normal examination. Adi Quarles MD Head CT 04/25/17 0000 Signed Impressions: Service Date/Time: Tuesday, April 25, 2017 18:02 - CONCLUSION: 1. Evolving left thalamic hematoma. No new hemorrhage. Adi Quarles MD Abdomen X-Ray 04/12/17 1538 Signed Impressions: Service Date/Time: Wednesday, April 12, 2017 17:29 - CONCLUSION: Nonobstructive bowel gas pattern. Suresh Zapata MD Neck CTA 04/10/17 0000 Signed Impressions: Service Date/Time: Monday, April 10, 2017 22:28 - CONCLUSION: The internal carotid arteries are normal bilaterally. No significant atherosclerotic disease is noted. Eliud Du MD Head CTA 04/10/17 0000 Signed Impressions: Service Date/Time: Monday, April 10, 2017 22:50 - CONCLUSION: Mild dilatation of the basilar tip without discrete aneurysm. Some narrowing of the left middle cerebral branch after the bifurcation. Prominent left thalamic hemorrhage. Eliud Du MD Objective Remarks GENERAL: Well-developed, well-nourished, in no acute distress. Awake, responds minimally with head nods, tracking with eyes. Expressive aphasic, attempts to speak intermittently. SKIN: Stage IV sacral wound noted, dressing in place. HEENT: Head is normocephalic without any lesions or masses noted. Facial features are symmetric. Eyes: Conjunctivae were clear. Skin on sacrum macerated , 4x4 in size, Mepilex. Continue to monitor. CARDIAC: Regular rhythm, regular rate. S1/S2 are heard. 2/6 ejection, no gallops or rubs. LUNGS: Clear to auscultation bilaterally. No wheeze, rhonchi or rales. No use of accessory muscles on inspiration or expiration. ABDOMEN: Soft, nontender. Nondistended. Bowel sounds heard in all 4 quadrants. No organomegaly or masses. Negative guarding. PEG tube noted without any signs of infection, skin c/d/i, dressing intact. No erythema. EXTREMITIES: No edema, pulses are equal bilaterally. No cyanosis or clubbing NEUROLOGY: Patient is moving left upper extremity and able to move left foot. Patient unable to move right upper and lower extremity. Procedures Peg Tube placed 05/08/17 (Dr. De Los Santos) Urinary Catheter: Yes Assessment to: Continue Date of Insertion: Oct 11, 2017 A/P Assessment and Plan Sepsis with leukocytosis, febrile illness, tachycardia, sacral decubitus with perineal abscesses, ongoing Continue Zosyn end date 11/10/16 per ID. IV/fluconazole, IV Vanco and Cipro dcd. Continue monitor for infection Blood cultures negative to date. Urine culture no growth to date Wound culture from sacral wound growing Pseudomonas Aeruginosa. Influenza testing is negative. Infectious disease following with patient, appreciate recommendations. Anticipates up to 4 weeks of antibiotic treatment end date 11/10/16. Continue IV fluids, electrolyte replacement as needed. CBC and BMP reviewed today, mild BECKY suspect secondary to infection vs dehydration, trending down. Continue IVF. Hold ADALBERTO, hold HTCZ. Continue FWF. CT of the pelvis that showed decubitus ulcer with small abscess in the right posterior perineal region and small abscess posterior and to the left rectum Patient with watery diarrhea at this time. C. difficile culture was negative Sacral decubitus with perineal abscess, this will need incision, drainage and debridement Wound care nurse evaluated patient and made recommendations for wound care and surgical debridement 10/10/17. Gen. surgery was consulted for sacral decubitus. Was notified on 10/11/17 that general surgery does not do sacral decubitus debridement or surgeries 10/11/17. Case was discussed with plastic surgery who are actually not national coverage specialist at this time. Dr. Lai was able to arrange for to evaluate the patient 10/12/17. Plastic surgery, , evaluated the patient who recommended Santyl at this time and possible debridement in the near future 10/13/17. Patient remains septic, CT of the pelvis was performed which did indicate multiple abscess in the right posterior perineal area and posterior and left of the rectum, 10/13/17. Discussed this with plastic surgery Dr. Lai, who indicated that these abscesses are 2 deep and to close to rectal mucosal for plastic surgery. He recommended consulting colorectal surgery 10/13/17. Dr. Franklin was national coverage specialist for colorectal surgery, consult was placed to him for evaluation. Case was discussed with him on multiple occasions. He indicates that since this is connected to a sacral decubitus and since there is no communication with the rectum, this case is not appropriate for colorectal surgery, awaiting consultation report 10/15/17. Discussed with Dr. Abdullahi. He was planning a doing debridement of today, however was unable to obtain consent from family 10/17/17. Spoke with son, consents signed for I&D of sacral wound. Attempted to contact Dr. Abdullahi and left voicemail with patient update. Will await surgery plans and recommendations. Debridement performed, patient tolerated well. Dressing change orders in place. 10/19/17 Santyl to wound bed. EARL Pollack. Continue BID dressing changes. Hypokalemia. Resolved. Likely secondary to likely wasting from diarrhea. Improved today. 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 Neurosurgery evaluated patient states no surgical intervention Continue PT/OT/ST Consulted as indicated patient is stable to be discharged to rehabilitation facility Case management consulted for inpatient rehabilitation, who indicated patient is homeless, no discharge disposition to inpatient rehabilitation Palliative care was consulted for recommendations. They recommended, see evaluation which has been done. Family wants aggressive measures and placement to be performed Psychiatry indicates that the patient does not have decision-making capacity to participate in her treatment or discharge plan. Palliative care has been reconsulted, patient requiring wound management. Spoke to son who continues to want aggressive measures. Dysphagia suspect secondary to intracranial bleed, Post PEG placement 05/09/17. Speech therapy indicates patient is nothing by mouth, to continue to follow and advance diet per exam Dietary consulted and made recommendations for bolus feeding Hypertension emergency, continue monitor blood pressure and adjust as needed Nifedipine 40 mg every 6 hours Lisinopril 10 mg twice daily on hold Apresoline 50 mg every 6 hours Catapres TTS 3 patch Metoprolol 100 mg twice daily HCTZ 25 mg daily, on hold Apresoline, clonidine, Vasotec as needed Hyperglycemia Hemoglobin A1c 6.2 Glucerna 1.5 bolus tube feeding Xeroderma on bilateral feet: Lac-Hydrin 12% Lotion continued. GI Prophylaxis: Prevacid via PEG tube DVT Prophylaxis: Sequential compression devices, chemical prophylaxis contraindicated secondary to intracranial hemorrhage Discharge Planning Patient is stable to be discharged to rehabilitation facility. Case management assisting. Veena Calvillo Oct 22, 2017 14:22
[2017-10-22 16:00] VITALS: BP 148/85; PULSE 75; RESP 14; TEMP 97.5; O2SAT 98
[2017-10-22 20:00] VITALS: BP 137/78; PULSE 84; RESP 16; TEMP 99.7; O2SAT 100
[2017-10-23] VITALS: BP 154/89; PULSE 72; RESP 16; TEMP 98.9; O2SAT 97
[2017-10-23] MEDS: hydrALAZINE HCL 50 MG TAB PEG SCH ×4 (00:39→17:24)
[2017-10-23] MEDS: NIFEdipine 20 MG CAP PEG SCH ×4 (00:39→17:24)
[2017-10-23] MEDS: PIPERACILLIN/TAZ 3.375 GM VIAL 3.375 GM in SODIUM CHLORIDE 0.9% INJ 100 ML IV SCH ×4 (00:40→17:24)
[2017-10-23] MEDS: FREE WATER G-TUBE SCH ×4 (00:48→17:24)
[2017-10-23 04:00] VITALS: BP 153/86; PULSE 72; RESP 16; TEMP 98; O2SAT 100
[2017-10-23] MEDS: COLLAGENASE OINT 30 GM TUBE TOPICAL SCH ×2 (09:00→22:01)
--- NOTE | 2017-10-23 09:08 | HHI.PR ---
Subjective Remarks Delayed entry from 10/19/17 0730 No acute changes overnight. Pt doing well per nursing. Febrile morbidity resolving Objective Vital Signs Date Time Temp Pulse Resp B/P (MAP) Pulse Ox O2 Delivery O2 Flow Rate FiO2 10/23/17 04:00 98.0 72 16 153/86 (108) 100 10/23/17 00:00 98.9 72 16 154/89 (110) 97 10/22/17 20:00 99.7 84 16 137/78 (97) 100 10/22/17 16:00 97.5 75 14 148/85 (106) 98 10/22/17 12:00 97.6 67 16 136/82 (100) 100 I/O 10/22/17 10/22/17 10/22/17 10/23/17 10/23/17 10/23/17 07:00 15:00 23:00 07:00 15:00 23:00 Intake Total 800 ml 350 ml 1977 ml Output Total 2100 ml 1800 ml 1400 ml Balance -1300 ml 350 ml 177 ml -1400 ml Intake Oral 0 ml 0 ml IV Total 800 ml 350 ml 857 ml Tube Feeding 720 ml Tube Irrigant 400 ml Output Urine Total 2100 ml 1800 ml 1200 ml Stool Total 200 ml Result Diagram: 10/20/17 0514 10/21/17 0650 Procedures No procedures performed Assessment and Plan Problem List: (1) Sacral decubitus ulcer ICD Codes: L89.159 - Pressure ulcer of sacral region, unspecified stage Status: Chronic Plan: Assessment plan Recommend returning to [facility] twice a day. Primary to check prealbumin, albumin , total protein, and serum transferrin to better assess nutrition. Problem Qualifiers (1) Sacral decubitus ulcer: Qualified Codes: L89.150 - Pressure ulcer of sacral region, unstageable DeCesaRojelio dawn MD Oct 23, 2017 09:08
--- NOTE | 2017-10-23 09:12 | HHI.PR ---
Subjective Remarks No acute changes overnight. Pt doing well per nursing. No fevers overnight. Objective Vital Signs Date Time Temp Pulse Resp B/P (MAP) Pulse Ox O2 Delivery O2 Flow Rate FiO2 10/23/17 04:00 98.0 72 16 153/86 (108) 100 10/23/17 00:00 98.9 72 16 154/89 (110) 97 10/22/17 20:00 99.7 84 16 137/78 (97) 100 10/22/17 16:00 97.5 75 14 148/85 (106) 98 10/22/17 12:00 97.6 67 16 136/82 (100) 100 I/O 10/22/17 10/22/17 10/22/17 10/23/17 10/23/17 10/23/17 07:00 15:00 23:00 07:00 15:00 23:00 Intake Total 800 ml 350 ml 1977 ml Output Total 2100 ml 1800 ml 1400 ml Balance -1300 ml 350 ml 177 ml -1400 ml Intake Oral 0 ml 0 ml IV Total 800 ml 350 ml 857 ml Tube Feeding 720 ml Tube Irrigant 400 ml Output Urine Total 2100 ml 1800 ml 1200 ml Stool Total 200 ml Result Diagram: 10/20/17 0514 10/21/17 0650 Procedures No procedures performed Other Results Labs Total protein 6.2 Albumin 2.4 Prealbumin 15 Assessment and Plan Problem List: (1) Sacral decubitus ulcer ICD Codes: L89.159 - Pressure ulcer of sacral region, unspecified stage Status: Chronic Plan: Assessment plan Recommend returning to [facility] twice a day. Primary to check prealbumin, albumin , total protein, and serum transferrin to better assess nutrition. Assessment and Plan Wound roughly 3.5cm in diameter, w/ ~2cm undermining circumferentially, much improved Wound bed granulating Continue santyl bid Appreciate nutrition recs No restrictions in PT Problem Qualifiers (1) Sacral decubitus ulcer: Qualified Codes: L89.150 - Pressure ulcer of sacral region, unstageable DeCesare,Rojelio Mehta MD Oct 23, 2017 09:12
[2017-10-23] MEDS: LACTIC ACID (AMMONIUM LACTATE) 12% LOTION 225 GM BTL TOPICAL SCH ×2 (09:21→22:01)
[2017-10-23] MEDS: METOPROLOL TARTRATE 100 MG TAB PEG SCH ×2 (09:21→22:01)
[2017-10-23] MEDS: LANSOPRAZOLE SOLUTAB 30 MG TAB G-TUBE SCH (09:21)
[2017-10-23] MEDS: SODIUM CHLOR 0.9% 1000 ML INJ 1,000 ML IV SCH (09:24)
--- NOTE | 2017-10-23 09:41 | HHI.PR ---
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 Patient seen and examined, lying in bed comfortably in no apparent distress. Plastics in today to evaluate wound. No further recommendations. No change in patient condition overnight. Stable. Afebrile. Objective Vitals Vital Signs Date Time Temp Pulse Resp B/P (MAP) Pulse Ox O2 Delivery O2 Flow Rate FiO2 10/23/17 04:00 98.0 72 16 153/86 (108) 100 10/23/17 00:00 98.9 72 16 154/89 (110) 97 10/22/17 20:00 99.7 84 16 137/78 (97) 100 10/22/17 16:00 97.5 75 14 148/85 (106) 98 10/22/17 12:00 97.6 67 16 136/82 (100) 100 I/O 10/22/17 10/22/17 10/22/17 10/23/17 10/23/17 10/23/17 07:00 15:00 23:00 07:00 15:00 23:00 Intake Total 800 ml 350 ml 1977 ml Output Total 2100 ml 1800 ml 1400 ml Balance -1300 ml 350 ml 177 ml -1400 ml Intake Oral 0 ml 0 ml IV Total 800 ml 350 ml 857 ml Tube Feeding 720 ml Tube Irrigant 400 ml Output Urine Total 2100 ml 1800 ml 1200 ml Stool Total 200 ml Result Diagram: 10/20/17 0514 10/21/17 0650 Imaging Last Impressions Pelvis CT 10/13/17 0000 Signed Impressions: Service Date/Time: Friday, October 13, 2017 12:02 - CONCLUSION: 1. Decubitus ulcer with small abscess in the right posterior perineal region measuring 3.1 x 4.6 cm. There is also a small abscess posterior and to the left of the rectum measuring 3.2 x 2.3 cm. Jann Weber MD Chest X-Ray 10/12/17 0000 Signed Impressions: Service Date/Time: October 12:18 - CONCLUSION: No acute disease. Jann Weber MD Upper Extremity Ultrasound 08/03/17 0000 Signed Impressions: Service Date/Time: July 04:13 - CONCLUSION: Normal examination. Adi Quarles MD Head CT 04/25/17 0000 Signed Impressions: Service Date/Time: Tuesday, April 25, 2017 18:02 - CONCLUSION: 1. Evolving left thalamic hematoma. No new hemorrhage. Adi Quarles MD Abdomen X-Ray 04/12/17 1538 Signed Impressions: Service Date/Time: Wednesday, April 12, 2017 17:29 - CONCLUSION: Nonobstructive bowel gas pattern. Suresh Zapata MD Neck CTA 04/10/17 0000 Signed Impressions: Service Date/Time: Monday, April 10, 2017 22:28 - CONCLUSION: The internal carotid arteries are normal bilaterally. No significant atherosclerotic disease is noted. Eliud Du MD Head CTA 04/10/17 0000 Signed Impressions: Service Date/Time: Monday, April 10, 2017 22:50 - CONCLUSION: Mild dilatation of the basilar tip without discrete aneurysm. Some narrowing of the left middle cerebral branch after the bifurcation. Prominent left thalamic hemorrhage. Eliud Du MD Objective Remarks GENERAL: Well-developed, well-nourished, in no acute distress. Awake, responds minimally with head nods, tracking with eyes. Expressive aphasic, attempts to speak intermittently. SKIN: Stage IV sacral wound noted, dressing in place. HEENT: Head is normocephalic without any lesions or masses noted. Facial features are symmetric. Eyes: Conjunctivae were clear. Skin on sacrum macerated , 4x4 in size, Mepilex. Continue to monitor. CARDIAC: Regular rhythm, regular rate. S1/S2 are heard. 2/6 ejection, no gallops or rubs. LUNGS: Clear to auscultation bilaterally. No wheeze, rhonchi or rales. No use of accessory muscles on inspiration or expiration. ABDOMEN: Soft, nontender. Nondistended. Bowel sounds heard in all 4 quadrants. No organomegaly or masses. Negative guarding. PEG tube noted without any signs of infection, skin c/d/i, dressing intact. No erythema. EXTREMITIES: No edema, pulses are equal bilaterally. No cyanosis or clubbing NEUROLOGY: Patient is moving left upper extremity and able to move left foot. Patient unable to move right upper and lower extremity. Procedures Peg Tube placed 05/08/17 (Dr. De Los Santos) Urinary Catheter: Yes Assessment to: Continue Date of Insertion: Oct 11, 2017 A/P Assessment and Plan Sepsis with leukocytosis, febrile illness, tachycardia, sacral decubitus with perineal abscesses, ongoing Continue Zosyn end date 11/10/16 per ID. IV/fluconazole, IV Vanco and Cipro dcd. Continue monitor for infection Blood cultures negative to date. Urine culture no growth to date Wound culture from sacral wound growing Pseudomonas Aeruginosa. Influenza testing is negative. Infectious disease following with patient, appreciate recommendations. Anticipates up to 4 weeks of antibiotic treatment end date 11/10/16. Continue IV fluids, electrolyte replacement as needed. CBC and BMP reviewed today, mild BECKY suspect secondary to infection vs dehydration, trending down. Continue IVF. Hold ADALBERTO, hold HTCZ. Continue FWF. CT of the pelvis that showed decubitus ulcer with small abscess in the right posterior perineal region and small abscess posterior and to the left rectum Patient with watery diarrhea at this time. Dignishield in place. C. difficile culture was negative BMP ordered today, follow. Sacral decubitus with perineal abscess, this will need incision, drainage and debridement Wound care nurse evaluated patient and made recommendations for wound care and surgical debridement 10/10/17. Gen. surgery was consulted for sacral decubitus. Was notified on 10/11/17 that general surgery does not do sacral decubitus debridement or surgeries 10/11/17. Case was discussed with plastic surgery who are actually not professional bass fisher at this time. Dr. Lai was able to arrange for to evaluate the patient 10/12/17. Plastic surgery, , evaluated the patient who recommended Santyl at this time and possible debridement in the near future 10/13/17. Patient remains septic, CT of the pelvis was performed which did indicate multiple abscess in the right posterior perineal area and posterior and left of the rectum, 10/13/17. Discussed this with plastic surgery Dr. Lai, who indicated that these abscesses are 2 deep and to close to rectal mucosal for plastic surgery. He recommended consulting colorectal surgery 10/13/17. Dr. Franklin was professional bass fisher for colorectal surgery, consult was placed to him for evaluation. Case was discussed with him on multiple occasions. He indicates that since this is connected to a sacral decubitus and since there is no communication with the rectum, this case is not appropriate for colorectal surgery, awaiting consultation report 10/15/17. Discussed with Dr. Abdullahi. He was planning a doing debridement of today, however was unable to obtain consent from family 10/17/17. Spoke with son, consents signed for I&D of sacral wound. Attempted to contact Dr. Abdullahi and left voicemail with patient update. Will await surgery plans and recommendations. Debridement performed, patient tolerated well. Dressing change orders in place. 10/19/17 Santyl to wound bed. DC Dakins. Continue BID dressing changes. Hypokalemia. Resolved. Likely secondary to likely wasting from diarrhea. Improved today. 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 Neurosurgery evaluated patient states no surgical intervention Continue PT/OT/ST Consulted as indicated patient is stable to be discharged to rehabilitation facility Case management consulted for inpatient rehabilitation, who indicated patient is homeless, no discharge disposition to inpatient rehabilitation Palliative care was consulted for recommendations. They recommended, see evaluation which has been done. Family wants aggressive measures and placement to be performed Psychiatry indicates that the patient does not have decision-making capacity to participate in her treatment or discharge plan. Palliative care has been reconsulted, patient requiring wound management. Spoke to son who continues to want aggressive measures. Dysphagia suspect secondary to intracranial bleed, Post PEG placement 05/09/17. Speech therapy indicates patient is nothing by mouth, to continue to follow and advance diet per exam Dietary consulted and made recommendations for bolus feeding Hypertension emergency, continue monitor blood pressure and adjust as needed Nifedipine 40 mg every 6 hours Lisinopril 10 mg twice daily on hold due to BECKY Apresoline 50 mg every 6 hours Catapres TTS 3 patch Metoprolol 100 mg twice daily HCTZ 25 mg daily, on hold hold due to BECKY Apresoline, clonidine, Vasotec as needed Hyperglycemia Hemoglobin A1c 6.2 Glucerna 1.5 bolus tube feeding Xeroderma on bilateral feet: Lac-Hydrin 12% Lotion continued. GI Prophylaxis: Prevacid via PEG tube DVT Prophylaxis: Sequential compression devices, chemical prophylaxis contraindicated secondary to intracranial hemorrhage Discharge Planning Patient is stable to be discharged to rehabilitation facility. Case management assisting. Attending Statement The exam, history, and the medical decision-making described in the above note were completed with the assistance of the mid-level provider. I reviewed and agree with the findings presented. I attest that I had a [id number] encounter with the patient on the same day, and personally performed and documented my assessment and findings in the medical record. Diffuse blanching rash since yesterday, may be due to zosyn started 10/10. Will d/c this and try Levaquin, vs morphine (had a reaction to dilaudid) and discussed with ID Also toradol for dressing changes prednisone bid x 3days discussed with brother regarding new blanching erythematous rash on left arm, chest, Patient plan of care and treatment plan reinforced. Veena Calvillo Oct 23, 2017 09:41 Helena Clarke MD Oct 23, 2017 17:29
[2017-10-23 09:51] VITALS: BP 132/70; PULSE 87; RESP 18; TEMP 96.9; O2SAT 100
[2017-10-23 11:35] LABS: BICARBONATE 26.8 MEQ/L (21.0-32.0); CALCIUM 8.7 MG/DL (8.5-10.1)
[2017-10-23 11:38] LABS: CREATININE 0.92 MG/DL (0.50-1.00)
[2017-10-23 14:51] VITALS: BP 168/110; PULSE 76; RESP 18; TEMP 96.4; O2SAT 97
[2017-10-23] MEDS ORDERED: diphenhydrAMINE HCL 50 MG/ML VIAL IM ONE (17:15)
[2017-10-23] MEDS ORDERED: POTASSIUM CHLORIDE 25 MEQ EFFERVESCENT TAB PO ONE (17:45)
[2017-10-23] MEDS ORDERED: POTASSIUM CHLORIDE 25 MEQ EFFERVESCENT TAB PEG ONE (18:00)
[2017-10-23 18:32] VITALS: BP 127/63; PULSE 93; RESP 18; TEMP 97.1; O2SAT 100
[2017-10-23 20:00] VITALS: BP 160/85; PULSE 98; RESP 20; TEMP 96.8; O2SAT 96
[2017-10-23] MEDS ORDERED: predniSONE 5 MG/5 ML CUP PO SCH (21:00)
[2017-10-23] MEDS: CEFEPIME INJ 1,000 MG in SODIUM CHLORIDE 0.9% INJ 100 ML IV SCH (21:53)
[2017-10-24] VITALS: BP 169/90; PULSE 75; RESP 20; TEMP 99.6; O2SAT 93
[2017-10-24] MEDS: hydrALAZINE HCL 50 MG TAB PEG SCH ×4 (01:01→18:49)
[2017-10-24] MEDS: NIFEdipine 20 MG CAP PEG SCH ×4 (01:01→18:49)
[2017-10-24] MEDS: FREE WATER G-TUBE SCH ×4 (01:02→18:00)
[2017-10-24 04:00] VITALS: BP 165/88
[2017-10-24] MEDS: SODIUM CHLOR 0.9% 1000 ML INJ 1,000 ML IV SCH (06:00)
[2017-10-24] MEDS ORDERED: predniSONE 5 MG/5 ML CUP G-TUBE SCH (09:00)
[2017-10-24 09:30] VITALS: BP 137/88; PULSE 91; RESP 16; TEMP 98.4; O2SAT 98
[2017-10-24] MEDS: CEFEPIME INJ 1,000 MG in SODIUM CHLORIDE 0.9% INJ 100 ML IV SCH ×2 (09:33→22:07)
[2017-10-24] MEDS: LANSOPRAZOLE SOLUTAB 30 MG TAB G-TUBE SCH (09:33)
[2017-10-24] MEDS: METOPROLOL TARTRATE 100 MG TAB PEG SCH ×2 (09:33→22:06)
[2017-10-24] MEDS: KETOROLAC TROMETHAMINE 30 MG/ML (IVP) VIAL IV PUSH SCH (09:33)
[2017-10-24] MEDS: LACTIC ACID (AMMONIUM LACTATE) 12% LOTION 225 GM BTL TOPICAL SCH ×2 (09:34→22:07)
[2017-10-24] MEDS: COLLAGENASE OINT 30 GM TUBE TOPICAL SCH ×2 (09:34→22:07)
[2017-10-24 12:00] VITALS: BP 112/75; PULSE 80; RESP 18; TEMP 97.7; O2SAT 92
[2017-10-24] MEDS: REMOVE OLD CATAPRES (CLONIDINE) PATCH T-DERMAL SCH (15:00)
[2017-10-24] MEDS: cloNIDine HCL 0.3 MG/24 HR PATCH T-DERMAL SCH (15:35)
--- NOTE | 2017-10-24 15:37 | HHI.PR ---
Subjective Remarks Patient seen and examined today for follow-up on sacral decubitus, abscess. Patient lying in bed comfortable. Patient is now afebrile. Objective Vitals Vital Signs Date Time Temp Pulse Resp B/P (MAP) Pulse Ox O2 Delivery O2 Flow Rate FiO2 10/24/17 12:00 97.7 80 18 112/75 (87) 92 10/24/17 10:45 18 10/24/17 09:30 98.4 91 16 137/88 (104) 98 10/24/17 04:00 165/88 (113) 10/24/17 00:00 99.6 75 20 169/90 (116) 93 10/23/17 20:00 96.8 98 20 160/85 (110) 96 10/23/17 18:32 97.1 93 18 127/63 (84) 100 I/O 10/23/17 10/23/17 10/23/17 10/24/17 10/24/17 10/24/17 07:00 15:00 23:00 07:00 15:00 23:00 Intake Total 1403 ml 0 ml Output Total 1400 ml 550 ml 2000 ml 3100 ml 850 ml Balance -1400 ml -550 ml -597 ml -3100 ml -850 ml Intake Oral 0 ml IV Total 8 ml Tube Feeding 895 ml Tube Irrigant 200 ml Other 300 ml Output Urine Total 1200 ml 550 ml 2000 ml 3100 ml 850 ml Stool Total 200 ml # Bowel Movements 2 Result Diagram: 10/20/17 0514 10/23/17 1110 Objective Remarks GENERAL: Well-developed, well-nourished, in no acute distress. Awake, responds minimally with head nods. Trying to speak HEENT: Head is normocephalic without any lesions or masses noted. Facial features are symmetric. Eyes: Conjunctivae were clear. CARDIAC: Regular rhythm, regular rate. S1/S2 are heard. 2/6 ejection, no gallops or rubs. LUNGS: Clear to auscultation bilaterally. No wheeze, rhonchi or rales. No use of accessory muscles on inspiration or expiration. ABDOMEN: Soft, nontender. Nondistended. Bowel sounds heard in all 4 quadrants. No organomegaly or masses. Negative rebound, negative guarding, PEG tube noted without any signs of infection EXTREMITIES: No edema, pulses are equal bilaterally. No cyanosis or clubbing NEUROLOGY: Patient is moving left upper extremity and able to move left foot. Patient unable to move right upper and lower extremity. SKIN: Patient has a 4 cm x 4 cm sacral decubitus with black eschar. There is induration and granulation noted moving down her gluteal crease bilaterally. Patient appears to be in pain with palpation Procedures Peg Tube placed 05/08/17 (Dr. De Los Santos) Urinary Catheter: Yes Assessment to: Continue Cruz insert reason: Stage III/IV Press Ulcer Date of Insertion: Oct 11, 2017 Vascular Central Line Catheter: No A/P Assessment and Plan Sepsis with leukocytosis, febrile illness, tachycardia, sacral decubitus with perineal abscesses, resolved Continue IV cefepime, IV Levaquin for pseudomonas double coverage Discontinued vancomycin IV/Zosyn IV/fluconazole IV, Continue monitor for infection Blood cultures negative for 5 days Urine culture no growth for 48 hours C. difficile culture was negative Influenza testing is negative wound culture from sacral wound with Pseudomonas Consulted infectious disease for recommendations for continued fever who recommended continuation of antibiotic treatment with Zosyn for 4 weeks, end date 11/10/17. However patient with acute renal sufficiency, antibiotics changed CT of the pelvis that showed decubitus ulcer with small abscess in the right posterior perineal region and small abscess posterior and to the left rectum Sacral decubitus with perineal abscess, this will need incision, drainage and debridement Wound care nurse evaluated patient and made recommendations for wound care and surgical debridement 10/10/17, Gen. surgery was consulted for sacral decubitus. Was notified on 10/11/17 that general surgery does not do sacral decubitus debridement or surgeries 10/11/17. Case was discussed with plastic surgery who are actually not line production cook at this time. Dr. Lai was able to arrange for to evaluate the patient 10/12/17. Plastic surgery, , evaluated the patient who recommended Santyl at this time and possible debridement in the near future 10/13/17. Patient remains septic, CT of the pelvis was performed which did indicate multiple abscess in the right posterior perineal area and posterior and left of the rectum, 10/13/17. Discussed this with plastic surgery Dr. Lai, who indicated that these abscesses are 2 deep and to close to rectal mucosal for plastic surgery. He recommended consulting colorectal surgery 10/13/17. Dr. Ritter was line production cook for colorectal surgery, consult was placed to him for evaluation. Case was discussed with him on multiple occasions. He indicates that since this is connected to a sacral decubitus and since there is no communication with the rectum, this case is not appropriate for colorectal surgery, awaiting consultation report 10/15/17. Discussed with Dr. Abdullahi. He was planning a doing debridement of today, however was unable to obtain consent from family 10/17/17. Spoke with son, consents signed for I&D of sacral wound. Debridement performed, patient tolerated well. Dressing change orders in place. 10/19/17 Santyl to wound bed. DC Dakins. Continue BID dressing changes. 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 Neurosurgery evaluated patient states no surgical intervention Continue PT/OT/ST Consulted as indicated patient is stable to be discharged to rehabilitation facility Case management consulted for inpatient rehabilitation, who indicated patient is homeless, no discharge disposition to inpatient rehabilitation Palliative care was consulted for recommendations. They recommended, see evaluation which has been done. Family wants aggressive measures and placement to be performed Psychiatry indicates that the patient does not have decision-making capacity to participate in her treatment or discharge plan. Dysphagia suspect secondary to intracranial bleed, Post PEG placement 05/09/17. 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 GI Prophylaxis: Prevacid via PEG tube DVT Prophylaxis: Sequential compression devices, chemical prophylaxis contraindicated secondary to intracranial hemorrhage Palliative care: Reconsulted palliative care this time in light of the patient' s worsening condition, family still wishing full aggressive management Discharge Planning Case management for discharge planning Kayden Kelley Oct 24, 2017 15:37
[2017-10-24] MEDS: NS + KCL 20 MEQ INJ 1,000 ML IV SCH (15:53)
[2017-10-24 16:00] VITALS: BP 184/104; PULSE 73; RESP 16; TEMP 98.2; O2SAT 100
[2017-10-24] MEDS: LEVOFLOXACIN 500 MG PREMIX INJ 100 ML IV SCH (18:49)
[2017-10-24 20:00] VITALS: BP 181/87; PULSE 99; RESP 20; TEMP 98.2; O2SAT 98
[2017-10-25] MEDS: FREE WATER G-TUBE SCH ×4 (00:55→17:35)
[2017-10-25] MEDS: hydrALAZINE HCL 50 MG TAB PEG SCH ×4 (00:55→17:40)
[2017-10-25] MEDS: NIFEdipine 20 MG CAP PEG SCH ×4 (00:55→17:40)
[2017-10-25 06:17] LABS: CALCIUM 8.8 MG/DL (8.5-10.1)
[2017-10-25 06:18] LABS: BICARBONATE 23.5 MEQ/L (21.0-32.0); MAGNESIUM 2.1 MG/DL (1.5-2.5)
[2017-10-25 06:21] LABS: CREATININE 0.67 MG/DL (0.50-1.00)
[2017-10-25 07:12] LABS: AUTOMATED NEUTROPHIL # 4.9 TH/MM3 (1.8-7.7); BASOPHIL # 0.1 TH/MM3 (0-0.2); BASOPHIL % 0.9 % (0.0-2.0); EOSINOPHIL # 0.4 TH/MM3 (0-0.4); HEMATOCRIT 33.3 % (35.0-46.0); HEMOGLOBIN 10.7 GM/DL (11.6-15.3); LYMPH % 19.5 % (9.0-44.0); LYMPHOCYTE # 1.5 TH/MM3 (1.0-4.8); MEAN CELL VOLUME 84.5 FL (80.0-100.0); MEAN CORPUSCULAR HEMOGLOBIN 27.1 PG (27.0-34.0); MEAN CORPUSCULAR HGB CONC 32.1 % (32.0-36.0); MEAN PLATELET VOLUME 7.8 FL (7.0-11.0); MONO % 8.4 % (0.0-8.0); MONOCYTE # 0.6 TH/MM3 (0-0.9); NEUT % 66.2 % (16.0-70.0); PLATELET COUNT 409 TH/MM3 (150-450); RED BLOOD COUNT 3.94 MIL/MM3 (4.00-5.30); RED CELL DISTRIBUTION WIDTH 15.3 % (11.6-17.2); WHITE BLOOD COUNT 7.5 TH/MM3 (4.0-11.0)
[2017-10-25 08:00] VITALS: BP 132/88; PULSE 96; RESP 18; TEMP 97.8; O2SAT 96
[2017-10-25] MEDS: CEFEPIME INJ 1,000 MG in SODIUM CHLORIDE 0.9% INJ 100 ML IV SCH ×4 (08:00→20:58)
[2017-10-25] MEDS: LANSOPRAZOLE SOLUTAB 30 MG TAB G-TUBE SCH (08:22)
[2017-10-25] MEDS: METOPROLOL TARTRATE 100 MG TAB PEG SCH ×2 (08:22→20:59)
[2017-10-25] MEDS: KETOROLAC TROMETHAMINE 30 MG/ML (IVP) VIAL IV PUSH SCH ×3 (08:34→11:37)
[2017-10-25] MEDS: LACTIC ACID (AMMONIUM LACTATE) 12% LOTION 225 GM BTL TOPICAL SCH ×2 (08:36→20:59)
[2017-10-25] MEDS: COLLAGENASE OINT 30 GM TUBE TOPICAL SCH ×2 (08:36→20:59)
[2017-10-25] MEDS: NS + KCL 20 MEQ INJ 1,000 ML IV SCH ×2 (08:48→11:37)
--- NOTE | 2017-10-25 10:45 | PD.WCN.NOT ---
Wound Consult Description: Patient seen for follow up of previously noted coccyx unstageable pressure injury Communicated with: LINSEY Giron 3rd floor STEPHENIEPO and Kayden WEBER Recommendation: Please continue Santyl to wound bed, but cleanse with normal saline only, DO NOT use wound cleanser with santyl. 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 Patient is now s/p debridement from Plastics of wound. Removed dressing in place to reveal open wound to sacrococcygeal area. Wound bed presents with ~ 30% yellow loosely adherent slough, ~20% facia, and ~50% red granulation tissue.Wound drainage is minimal and sero-sanguinous, without odor. Cleansed wound with normal saline. Wound measures 5.2cmx 4cm x 1.4cm. Undermining is noted circumferentially and is deepest at 6 o'clock measuring 3.6 cm. Wound margins are unattached, even and well defined.Periwound presents with discoloration and denuded skin from 9 to 2 o'clock. Skin prep was applied to periwound before to periwound. Applied santyl to fluffed normal saline moistened gauze and packed loosely to wound bed and covered with bordered gauze. Dignisheild is noted in place without leaking. Romelia Liz [facility] Oct 25, 2017 10:45
[2017-10-25 11:44] VITALS: BP 140/97; PULSE 74; RESP 18; TEMP 96.5; O2SAT 99
--- NOTE | 2017-10-25 13:34 | HHI.PR ---
Subjective Remarks Patient examined today for follow-up on hemorrhagic CVA. Sacral wound, abscess. Patient clinically improving. Afebrile. No further signs of sepsis. Objective Vitals Vital Signs Date Time Temp Pulse Resp B/P (MAP) Pulse Ox O2 Delivery O2 Flow Rate FiO2 10/25/17 11:44 96.5 74 18 140/97 (111) 99 10/25/17 08:00 97.8 96 18 132/88 (103) 96 10/24/17 20:00 98.2 99 20 181/87 (118) 98 10/24/17 16:00 98.2 73 16 184/104 (130) 100 I/O 10/24/17 10/24/17 10/24/17 10/25/17 10/25/17 10/25/17 07:00 15:00 23:00 07:00 15:00 23:00 Intake Total 0 ml 100 ml 925 ml Output Total 3100 ml 850 ml 450 ml 2200 ml Balance -3100 ml -850 ml -350 ml -1275 ml Intake Oral 0 ml 0 ml IV Total 100 ml 925 ml Output Urine Total 3100 ml 850 ml 450 ml 2200 ml Result Diagram: 10/25/17 0500 10/25/17 0500 Objective Remarks GENERAL: Well-developed, well-nourished, in no acute distress. Awake, responds minimally with head nods. Trying to speak HEENT: Head is normocephalic without any lesions or masses noted. Facial features are symmetric. Eyes: Conjunctivae were clear. CARDIAC: Regular rhythm, regular rate. S1/S2 are heard. 2/6 ejection, no gallops or rubs. LUNGS: Clear to auscultation bilaterally. No wheeze, rhonchi or rales. No use of accessory muscles on inspiration or expiration. ABDOMEN: Soft, nontender. Nondistended. Bowel sounds heard in all 4 quadrants. No organomegaly or masses. Negative rebound, negative guarding, PEG tube noted without any signs of infection EXTREMITIES: No edema, pulses are equal bilaterally. No cyanosis or clubbing NEUROLOGY: Patient is moving left upper extremity and able to move left foot. Patient unable to move right upper and lower extremity. SKIN: Patient has a 4 cm x 4 cm sacral decubitus with black eschar. There is induration and granulation noted moving down her gluteal crease bilaterally. Patient appears to be in pain with palpation Procedures Peg Tube placed 05/08/17 (Dr. De Los Santos) Urinary Catheter: Yes Assessment to: Continue Cruz insert reason: Stage III/IV Press Ulcer Date of Insertion: Oct 11, 2017 Vascular Central Line Catheter: No A/P Assessment and Plan Sepsis with leukocytosis, febrile illness, tachycardia, sacral decubitus with perineal abscesses, resolved Continue IV cefepime, IV Levaquin for pseudomonas double coverage Discontinued vancomycin IV/Zosyn IV/fluconazole IV, Continue monitor for infection Blood cultures negative for 5 days Urine culture no growth for 48 hours C. difficile culture was negative Influenza testing is negative wound culture from sacral wound with Pseudomonas Consulted infectious disease for recommendations for continued fever who recommended continuation of antibiotic treatment with Zosyn for 4 weeks, end date 11/10/17. However patient with acute renal sufficiency, antibiotics changed CT of the pelvis that showed decubitus ulcer with small abscess in the right posterior perineal region and small abscess posterior and to the left rectum Sacral decubitus with perineal abscess, this will need incision, drainage and debridement Wound care nurse evaluated patient and made recommendations for wound care and surgical debridement 10/10/17, Gen. surgery was consulted for sacral decubitus. Was notified on 10/11/17 that general surgery does not do sacral decubitus debridement or surgeries 10/11/17. Case was discussed with plastic surgery who are actually not yardage control operator forming at this time. Dr. Lai was able to arrange for to evaluate the patient 10/12/17. Plastic surgery, , evaluated the patient who recommended Santyl at this time and possible debridement in the near future 10/13/17. Patient remains septic, CT of the pelvis was performed which did indicate multiple abscess in the right posterior perineal area and posterior and left of the rectum, 10/13/17. Discussed this with plastic surgery Dr. Lai, who indicated that these abscesses are 2 deep and to close to rectal mucosal for plastic surgery. He recommended consulting colorectal surgery 10/13/17. Dr. Franklin was yardage control operator forming for colorectal surgery, consult was placed to him for evaluation. Case was discussed with him on multiple occasions. He indicates that since this is connected to a sacral decubitus and since there is no communication with the rectum, this case is not appropriate for colorectal surgery, awaiting consultation report 10/15/17. Discussed with Dr. Abdullahi. He was planning a doing debridement of today, however was unable to obtain consent from family 10/17/17. Spoke with son, consents signed for I&D of sacral wound. Debridement performed, patient tolerated well. Dressing change orders in place. 10/19/17 Santyl to wound bed. EARL Pollack. Continue BID dressing changes. 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 Neurosurgery evaluated patient states no surgical intervention Continue PT/OT/ST Consulted as indicated patient is stable to be discharged to rehabilitation facility Case management consulted for inpatient rehabilitation, who indicated patient is homeless, no discharge disposition to inpatient rehabilitation Palliative care was consulted for recommendations. They recommended, see evaluation which has been done. Family wants aggressive measures and placement to be performed Psychiatry indicates that the patient does not have decision-making capacity to participate in her treatment or discharge plan. Dysphagia suspect secondary to intracranial bleed, Post PEG placement 05/09/17. 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 GI Prophylaxis: Prevacid via PEG tube DVT Prophylaxis: Sequential compression devices, chemical prophylaxis contraindicated secondary to intracranial hemorrhage Palliative care: Reconsulted palliative care this time in light of the patient' s worsening condition, family still wishing full aggressive management Discharge Planning Case management for discharge planning Kayden Kelley Oct 25, 2017 13:34
[2017-10-25 16:00] VITALS: BP 152/89; PULSE 119; RESP 20; TEMP 99; O2SAT 96
[2017-10-25] MEDS: LEVOFLOXACIN 500 MG PREMIX INJ 100 ML IV SCH (17:40)
[2017-10-25 20:00] VITALS: BP 135/85; PULSE 93; RESP 20; TEMP 98.8; O2SAT 94
[2017-10-25] MEDS: LISINOPRIL 20 MG TAB PEG SCH (20:59)
[2017-10-26] MEDS: hydrALAZINE HCL 50 MG TAB PEG SCH ×4 (00:06→17:30)
[2017-10-26] MEDS: NIFEdipine 20 MG CAP PEG SCH ×4 (00:06→17:30)
[2017-10-26] MEDS: FREE WATER G-TUBE SCH ×4 (00:06→17:02)
[2017-10-26 08:00] VITALS: BP 149/90; PULSE 61; RESP 16; TEMP 98.8; O2SAT 99
--- NOTE | 2017-10-26 09:05 | HHI.PR ---
Subjective Remarks Patient seen and examined in follow-up today for hemorrhagic CVA, sacral decubitus. Patient was seen lying in bed. He denied any new complaints. No change in clinical status. Objective Vitals Vital Signs Date Time Temp Pulse Resp B/P (MAP) Pulse Ox O2 Delivery O2 Flow Rate FiO2 10/25/17 20:00 98.8 93 20 135/85 (102) 94 10/25/17 16:00 99.0 119 20 152/89 (110) 96 10/25/17 11:44 96.5 74 18 140/97 (111) 99 I/O 10/25/17 10/25/17 10/25/17 10/26/17 10/26/17 10/26/17 07:00 15:00 23:00 07:00 15:00 23:00 Intake Total 925 ml 100 ml 1490 ml 480 ml Output Total 2200 ml 2150 ml 1100 ml 800 ml Balance -1275 ml -2050 ml 390 ml -320 ml Intake Oral 0 ml 0 ml IV Total 925 ml 100 ml 320 ml Tube Feeding 720 ml 240 ml Tube Irrigant 60 ml Other 450 ml 180 ml Output Urine Total 2200 ml 1300 ml 1100 ml 800 ml Stool Total 850 ml # Bowel Movements 0 Result Diagram: 10/25/17 0500 10/25/17 0500 Objective Remarks GENERAL: Well-developed, well-nourished, in no acute distress. Awake, responds minimally with head nods. Trying to speak HEENT: Head is normocephalic without any lesions or masses noted. Facial features are symmetric. Eyes: Conjunctivae were clear. CARDIAC: Regular rhythm, regular rate. S1/S2 are heard. 2/6 ejection, no gallops or rubs. LUNGS: Clear to auscultation bilaterally. No wheeze, rhonchi or rales. No use of accessory muscles on inspiration or expiration. ABDOMEN: Soft, nontender. Nondistended. Bowel sounds heard in all 4 quadrants. No organomegaly or masses. Negative rebound, negative guarding, PEG tube noted without any signs of infection EXTREMITIES: No edema, pulses are equal bilaterally. No cyanosis or clubbing NEUROLOGY: Patient is moving left upper extremity and able to move left foot. Patient unable to move right upper and lower extremity. SKIN: Sacral wound with bandage at this time Procedures Peg Tube placed 05/08/17 (Dr. De Los Santos) Urinary Catheter: Yes Assessment to: Continue Cruz insert reason: Stage III/IV Press Ulcer Date of Insertion: Oct 11, 2017 Vascular Central Line Catheter: No A/P Assessment and Plan Sepsis with leukocytosis, febrile illness, tachycardia, sacral decubitus with perineal abscesses, resolved Continue IV cefepime, IV Levaquin for pseudomonas double coverage Discontinued vancomycin IV/Zosyn IV/fluconazole IV, Continue monitor for infection Blood cultures negative for 5 days Urine culture no growth for 48 hours C. difficile culture was negative Influenza testing is negative wound culture from sacral wound with Pseudomonas Consulted infectious disease for recommendations for continued fever who recommended continuation of antibiotic treatment with Zosyn for 4 weeks, end date 11/10/17. However patient with acute renal sufficiency, antibiotics changed CT of the pelvis that showed decubitus ulcer with small abscess in the right posterior perineal region and small abscess posterior and to the left rectum Sacral decubitus with perineal abscess, this will need incision, drainage and debridement Wound care nurse evaluated patient and made recommendations for wound care and surgical debridement 10/10/17, Gen. surgery was consulted for sacral decubitus. Was notified on 10/11/17 that general surgery does not do sacral decubitus debridement or surgeries 10/11/17. Case was discussed with plastic surgery who are actually not claims correspondence clerk at this time. Dr. Lai was able to arrange for to evaluate the patient 10/12/17. Plastic surgery, , evaluated the patient who recommended Santyl at this time and possible debridement in the near future 10/13/17. Patient remains septic, CT of the pelvis was performed which did indicate multiple abscess in the right posterior perineal area and posterior and left of the rectum, 10/13/17. Discussed this with plastic surgery Dr. Lai, who indicated that these abscesses are 2 deep and to close to rectal mucosal for plastic surgery. He recommended consulting colorectal surgery 10/13/17. Dr. Franklin was claims correspondence clerk for colorectal surgery, consult was placed to him for evaluation. Case was discussed with him on multiple occasions. He indicates that since this is connected to a sacral decubitus and since there is no communication with the rectum, this case is not appropriate for colorectal surgery, awaiting consultation report 10/15/17. Discussed with Dr. Abdullahi. He was planning a doing debridement of today, however was unable to obtain consent from family 10/17/17. Spoke with son, consents signed for I&D of sacral wound. Debridement performed, patient tolerated well. Dressing change orders in place. 10/19/17 Santyl to wound bed. EARL Pollack. Continue BID dressing changes. 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 Neurosurgery evaluated patient states no surgical intervention Continue PT/OT/ST Consulted as indicated patient is stable to be discharged to rehabilitation facility Case management consulted for inpatient rehabilitation, who indicated patient is homeless, no discharge disposition to inpatient rehabilitation Palliative care was consulted for recommendations. They recommended, see evaluation which has been done. Family wants aggressive measures and placement to be performed Psychiatry indicates that the patient does not have decision-making capacity to participate in her treatment or discharge plan. Dysphagia suspect secondary to intracranial bleed, Post PEG placement 05/09/17. 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 GI Prophylaxis: Prevacid via PEG tube DVT Prophylaxis: Sequential compression devices, chemical prophylaxis contraindicated secondary to intracranial hemorrhage Palliative care: Reconsulted palliative care this time in light of the patient' s worsening condition, family still wishing full aggressive management Records were reviewed. No change in current treatment plan. Awaiting case management for discharge planning Discharge Planning Case management for discharge planning Kayden Kelley Oct 26, 2017 09:05
[2017-10-26] MEDS: CEFEPIME INJ 1,000 MG in SODIUM CHLORIDE 0.9% INJ 100 ML IV SCH ×2 (09:20→21:45)
[2017-10-26] MEDS: METOPROLOL TARTRATE 100 MG TAB PEG SCH ×2 (09:20→22:58)
[2017-10-26] MEDS: KETOROLAC TROMETHAMINE 30 MG/ML (IVP) VIAL IV PUSH SCH (09:21)
[2017-10-26] MEDS: LANSOPRAZOLE SOLUTAB 30 MG TAB G-TUBE SCH (09:21)
[2017-10-26] MEDS: LACTIC ACID (AMMONIUM LACTATE) 12% LOTION 225 GM BTL TOPICAL SCH ×2 (09:22→22:59)
[2017-10-26] MEDS: COLLAGENASE OINT 30 GM TUBE TOPICAL SCH ×2 (09:22→23:00)
[2017-10-26] MEDS: LISINOPRIL 20 MG TAB PEG SCH ×2 (09:22→22:58)
[2017-10-26 12:00] VITALS: BP 142/91; PULSE 59; RESP 16; TEMP 99; O2SAT 99
[2017-10-26 16:00] VITALS: BP 127/85; PULSE 67; RESP 16; TEMP 97.6; O2SAT 99
[2017-10-26] MEDS: LEVOFLOXACIN 500 MG PREMIX INJ 100 ML IV SCH (17:24)
[2017-10-26 20:00] VITALS: BP 129/85; PULSE 86; RESP 20; TEMP 98.7; O2SAT 99
[2017-10-27] MEDS: NIFEdipine 20 MG CAP PEG SCH ×4 (01:42→17:56)
[2017-10-27] MEDS: hydrALAZINE HCL 50 MG TAB PEG SCH ×4 (01:43→17:56)
[2017-10-27] MEDS: FREE WATER G-TUBE SCH ×4 (06:14→17:56)
[2017-10-27 08:00] VITALS: BP 133/75; PULSE 84; RESP 16; TEMP 97.2; O2SAT 98
--- NOTE | 2017-10-27 08:01 | HHI.PR ---
Subjective Remarks Patient seen and examined today for follow-up on sacral wound and hemorrhagic CVA. No indications overnight of any new complaints. Discussed with nursing staff not to use skin cleanser because it activates the Santyl. Objective Vitals Vital Signs Date Time Temp Pulse Resp B/P (MAP) Pulse Ox O2 Delivery O2 Flow Rate FiO2 10/26/17 20:00 98.7 86 20 129/85 (100) 99 10/26/17 16:00 97.6 67 16 127/85 (99) 99 10/26/17 12:00 99.0 59 16 142/91 (108) 99 I/O 10/26/17 10/26/17 10/26/17 10/27/17 10/27/17 10/27/17 07:00 15:00 23:00 07:00 15:00 23:00 Intake Total 480 ml 0 ml 100 ml Output Total 800 ml 425 ml 475 ml Balance -320 ml -425 ml -375 ml Intake Oral 0 ml 0 ml 0 ml IV Total 100 ml Tube Feeding 240 ml Tube Irrigant 60 ml Other 180 ml Output Urine Total 800 ml 425 ml 475 ml # Bowel Movements 0 Result Diagram: 10/25/17 0500 10/25/17 0500 Objective Remarks GENERAL: Well-developed, well-nourished, in no acute distress. Awake, responds minimally with head nods. Trying to speak HEENT: Head is normocephalic without any lesions or masses noted. Facial features are symmetric. Eyes: Conjunctivae were clear. CARDIAC: Regular rhythm, regular rate. S1/S2 are heard. 2/6 ejection, no gallops or rubs. LUNGS: Clear to auscultation bilaterally. No wheeze, rhonchi or rales. No use of accessory muscles on inspiration or expiration. ABDOMEN: Soft, nontender. Nondistended. Bowel sounds heard in all 4 quadrants. No organomegaly or masses. Negative rebound, negative guarding, PEG tube noted without any signs of infection EXTREMITIES: No edema, pulses are equal bilaterally. No cyanosis or clubbing NEUROLOGY: Patient is moving left upper extremity and able to move left foot. Patient unable to move right upper and lower extremity. SKIN: Sacral wound with bandage at this time Procedures Peg Tube placed 05/08/17 (Dr. De Los Santos) Urinary Catheter: Yes Assessment to: Continue Cruz insert reason: Stage III/IV Press Ulcer Date of Insertion: Oct 11, 2017 Vascular Central Line Catheter: No A/P Assessment and Plan Sepsis with leukocytosis, febrile illness, tachycardia, sacral decubitus with perineal abscesses, resolved Continue IV cefepime, IV Levaquin for pseudomonas double coverage Discontinued vancomycin IV/Zosyn IV/fluconazole IV, Continue monitor for infection Blood cultures negative for 5 days Urine culture no growth for 48 hours C. difficile culture was negative Influenza testing is negative wound culture from sacral wound with Pseudomonas Consulted infectious disease for recommendations for continued fever who recommended continuation of antibiotic treatment with Zosyn for 4 weeks, end date 11/10/17. However patient with acute renal sufficiency, antibiotics changed CT of the pelvis that showed decubitus ulcer with small abscess in the right posterior perineal region and small abscess posterior and to the left rectum Sacral decubitus with perineal abscess, this will need incision, drainage and debridement Wound care nurse evaluated patient and made recommendations for wound care and surgical debridement 10/10/17, Gen. surgery was consulted for sacral decubitus. Was notified on 10/11/17 that general surgery does not do sacral decubitus debridement or surgeries 10/11/17. Case was discussed with plastic surgery who are actually not telephonic nurse at this time. Dr. Lai was able to arrange for to evaluate the patient 10/12/17. Plastic surgery, , evaluated the patient who recommended Santyl at this time and possible debridement in the near future 10/13/17. Patient remains septic, CT of the pelvis was performed which did indicate multiple abscess in the right posterior perineal area and posterior and left of the rectum, 10/13/17. Discussed this with plastic surgery Dr. Lai, who indicated that these abscesses are 2 deep and to close to rectal mucosal for plastic surgery. He recommended consulting colorectal surgery 10/13/17. Dr. Franklin was telephonic nurse for colorectal surgery, consult was placed to him for evaluation. Case was discussed with him on multiple occasions. He indicates that since this is connected to a sacral decubitus and since there is no communication with the rectum, this case is not appropriate for colorectal surgery, awaiting consultation report 10/15/17. Discussed with Dr. Abdullahi. He was planning a doing debridement of today, however was unable to obtain consent from family 10/17/17. Spoke with son, consents signed for I&D of sacral wound. Debridement performed, patient tolerated well. Dressing change orders in place. 10/19/17 Santyl to wound bed. DC Dakins. Continue BID dressing changes. 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 Neurosurgery evaluated patient states no surgical intervention Continue PT/OT/ST Consulted as indicated patient is stable to be discharged to rehabilitation facility Case management consulted for inpatient rehabilitation, who indicated patient is homeless, no discharge disposition to inpatient rehabilitation Palliative care was consulted for recommendations. They recommended, see evaluation which has been done. Family wants aggressive measures and placement to be performed Psychiatry indicates that the patient does not have decision-making capacity to participate in her treatment or discharge plan. Dysphagia suspect secondary to intracranial bleed, Post PEG placement 05/09/17. 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 GI Prophylaxis: Prevacid via PEG tube DVT Prophylaxis: Sequential compression devices, chemical prophylaxis contraindicated secondary to intracranial hemorrhage Palliative care: Reconsulted palliative care this time in light of the patient' s worsening condition, family still wishing full aggressive management Records were reviewed. Awaiting case management for discharge planning. No change in current treatment plan. Discharge Planning Case management for discharge planning Kayden Kelley Oct 27, 2017 08:01
[2017-10-27] MEDS: LISINOPRIL 20 MG TAB PEG SCH ×2 (09:03→20:56)
[2017-10-27] MEDS: KETOROLAC TROMETHAMINE 30 MG/ML (IVP) VIAL IV PUSH SCH (09:03)
[2017-10-27] MEDS: COLLAGENASE OINT 30 GM TUBE TOPICAL SCH ×2 (09:04→20:56)
[2017-10-27] MEDS: LACTIC ACID (AMMONIUM LACTATE) 12% LOTION 225 GM BTL TOPICAL SCH ×2 (09:04→20:56)
[2017-10-27] MEDS: METOPROLOL TARTRATE 100 MG TAB PEG SCH ×2 (09:04→20:56)
[2017-10-27] MEDS: LANSOPRAZOLE SOLUTAB 30 MG TAB G-TUBE SCH (09:04)
[2017-10-27] MEDS: CEFEPIME INJ 1,000 MG in SODIUM CHLORIDE 0.9% INJ 100 ML IV SCH ×2 (09:04→20:00)
[2017-10-27 12:00] VITALS: BP 166/97; PULSE 72; RESP 16; TEMP 97.9; O2SAT 100
[2017-10-27 16:00] VITALS: BP 148/91; PULSE 71; RESP 16; TEMP 98.1; O2SAT 99
[2017-10-27] MEDS: LEVOFLOXACIN 500 MG PREMIX INJ 100 ML IV SCH (17:56)
[2017-10-27 20:00] VITALS: BP 151/98; PULSE 88; RESP 16; TEMP 98.9; O2SAT 94
[2017-10-28] MEDS: FREE WATER G-TUBE SCH ×4 (00:06→17:24)
[2017-10-28] MEDS: NIFEdipine 20 MG CAP PEG SCH ×4 (00:06→18:32)
[2017-10-28] MEDS: hydrALAZINE HCL 50 MG TAB PEG SCH ×4 (00:06→18:32)
[2017-10-28 04:00] VITALS: BP 142/85; PULSE 78; RESP 18; TEMP 98.5; O2SAT 95
[2017-10-28 08:00] VITALS: BP 179/123; PULSE 66; RESP 15; TEMP 97.6
[2017-10-28] MEDS: LISINOPRIL 20 MG TAB PEG SCH ×2 (08:37→22:09)
[2017-10-28] MEDS: KETOROLAC TROMETHAMINE 30 MG/ML (IVP) VIAL IV PUSH SCH ×2 (08:37→13:45)
[2017-10-28] MEDS: LANSOPRAZOLE SOLUTAB 30 MG TAB G-TUBE SCH (08:38)
[2017-10-28] MEDS: METOPROLOL TARTRATE 100 MG TAB PEG SCH ×2 (08:38→22:09)
[2017-10-28] MEDS: COLLAGENASE OINT 30 GM TUBE TOPICAL SCH ×2 (08:39→21:00)
[2017-10-28] MEDS: CEFEPIME INJ 1,000 MG in SODIUM CHLORIDE 0.9% INJ 100 ML IV SCH ×3 (08:39→22:09)
[2017-10-28] MEDS: LACTIC ACID (AMMONIUM LACTATE) 12% LOTION 225 GM BTL TOPICAL SCH ×2 (08:39→22:10)
--- NOTE | 2017-10-28 09:55 | HHI.PR ---
Subjective Remarks Patient seen and examined today for follow-up on sacral wound, hemorrhagic CVA. No indication of any new problems overnight. Patient resting comfortably in getting IV placed at bedside. No change in clinical status. Objective Vitals Vital Signs Date Time Temp Pulse Resp B/P (MAP) Pulse Ox O2 Delivery O2 Flow Rate FiO2 10/28/17 08:00 97.6 66 15 179/123 (141) 10/28/17 04:00 98.5 78 18 142/85 (104) 95 10/27/17 20:00 98.9 88 16 151/98 (115) 94 10/27/17 16:00 98.1 71 16 148/91 (110) 99 10/27/17 12:00 97.9 72 16 166/97 (120) 100 I/O 10/27/17 10/27/17 10/27/17 10/28/17 10/28/17 10/28/17 07:00 15:00 23:00 07:00 15:00 23:00 Intake Total 100 ml 0 ml 460 ml Output Total 475 ml 1500 ml 650 ml Balance -375 ml -1500 ml -190 ml Intake Oral 0 ml 0 ml IV Total 100 ml Tube Feeding 240 ml Other 220 ml Output Urine Total 475 ml 1250 ml 650 ml Stool Total 250 ml Result Diagram: 10/25/17 0500 10/25/17 0500 Objective Remarks GENERAL: Well-developed, well-nourished, in no acute distress. Awake, responds minimally with head nods. Trying to speak HEENT: Head is normocephalic without any lesions or masses noted. Facial features are symmetric. Eyes: Conjunctivae were clear. CARDIAC: Regular rhythm, regular rate. S1/S2 are heard. 2/6 ejection, no gallops or rubs. LUNGS: Clear to auscultation bilaterally. No wheeze, rhonchi or rales. No use of accessory muscles on inspiration or expiration. ABDOMEN: Soft, nontender. Nondistended. Bowel sounds heard in all 4 quadrants. No organomegaly or masses. Negative rebound, negative guarding, PEG tube noted without any signs of infection EXTREMITIES: No edema, pulses are equal bilaterally. No cyanosis or clubbing NEUROLOGY: Patient is moving left upper extremity and able to move left foot. Patient unable to move right upper and lower extremity. SKIN: Sacral wound with bandage at this time Procedures Peg Tube placed 7/03/17 (Dr. De Los Santos) Urinary Catheter: Yes Assessment to: Continue Cruz insert reason: Stage III/IV Press Ulcer Date of Insertion: Oct 11, 2017 Vascular Central Line Catheter: No A/P Assessment and Plan Sepsis with leukocytosis, febrile illness, tachycardia, sacral decubitus with perineal abscesses, resolved Continue IV cefepime, IV Levaquin for pseudomonas double coverage Discontinued vancomycin IV/Zosyn IV/fluconazole IV, Continue monitor for infection Blood cultures negative for 5 days Urine culture no growth for 48 hours C. difficile culture was negative Influenza testing is negative wound culture from sacral wound with Pseudomonas Consulted infectious disease for recommendations for continued fever who recommended continuation of antibiotic treatment with Zosyn for 4 weeks, end date 11/10/17. However patient with acute renal sufficiency, antibiotics changed CT of the pelvis that showed decubitus ulcer with small abscess in the right posterior perineal region and small abscess posterior and to the left rectum Sacral decubitus with perineal abscess, this will need incision, drainage and debridement Wound care nurse evaluated patient and made recommendations for wound care and surgical debridement 10/10/17, Gen. surgery was consulted for sacral decubitus. Was notified on 10/11/17 that general surgery does not do sacral decubitus debridement or surgeries 10/11/17. Case was discussed with plastic surgery who are actually not electron beam photo mask technician at this time. Dr. Lai was able to arrange for to evaluate the patient 10/12/17. Plastic surgery, , evaluated the patient who recommended Santyl at this time and possible debridement in the near future 10/13/17. Patient remains septic, CT of the pelvis was performed which did indicate multiple abscess in the right posterior perineal area and posterior and left of the rectum, 10/13/17. Discussed this with plastic surgery Dr. Lai, who indicated that these abscesses are 2 deep and to close to rectal mucosal for plastic surgery. He recommended consulting colorectal surgery 10/13/17. Dr. Franklin was electron beam photo mask technician for colorectal surgery, consult was placed to him for evaluation. Case was discussed with him on multiple occasions. He indicates that since this is connected to a sacral decubitus and since there is no communication with the rectum, this case is not appropriate for colorectal surgery, awaiting consultation report 10/15/17. Discussed with Dr. Decesare. He was planning a doing debridement of today, however was unable to obtain consent from family 10/17/17. Spoke with son, consents signed for I&D of sacral wound. Debridement performed, patient tolerated well. Dressing change orders in place. 10/19/17 Santyl to wound bed. DC Dakins. Continue BID dressing changes. 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 Neurosurgery evaluated patient states no surgical intervention Continue PT/OT/ST Consulted as indicated patient is stable to be discharged to rehabilitation facility Case management consulted for inpatient rehabilitation, who indicated patient is homeless, no discharge disposition to inpatient rehabilitation Palliative care was consulted for recommendations. They recommended, see evaluation which has been done. Family wants aggressive measures and placement to be performed Psychiatry indicates that the patient does not have decision-making capacity to participate in her treatment or discharge plan. Dysphagia suspect secondary to intracranial bleed, Post PEG placement 05/09/17. 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 GI Prophylaxis: Prevacid via PEG tube DVT Prophylaxis: Sequential compression devices, chemical prophylaxis contraindicated secondary to intracranial hemorrhage Palliative care: Reconsulted palliative care this time in light of the patient' s worsening condition, family still wishing full aggressive management Records were reviewed. No change in current treatment plan. Awaiting case management for discharge planning. Discharge Planning Case management for discharge planning Kayden Kelley Oct 28, 2017 09:55
[2017-10-28 12:00] VITALS: BP 204/126; PULSE 51; RESP 18; TEMP 97.4
[2017-10-28 16:00] VITALS: BP 172/94; PULSE 87; RESP 16; TEMP 98.1; O2SAT 100
[2017-10-28] MEDS: LEVOFLOXACIN 500 MG PREMIX INJ 100 ML IV SCH (17:24)
[2017-10-28 18:30] VITALS: BP 131/78; PULSE 88; RESP 16
[2017-10-28 20:57] VITALS: BP 144/79; PULSE 79; RESP 16; TEMP 98.2; O2SAT 94
[2017-10-29] VITALS: BP 135/85; PULSE 67; RESP 18; TEMP 98; O2SAT 95
[2017-10-29] MEDS: hydrALAZINE HCL 50 MG TAB PEG SCH ×4 (00:30→18:00)
[2017-10-29] MEDS: NIFEdipine 20 MG CAP PEG SCH ×4 (00:30→18:00)
[2017-10-29 04:00] VITALS: BP 139/91; PULSE 70; RESP 16; TEMP 98; O2SAT 100
[2017-10-29] MEDS: FREE WATER G-TUBE SCH ×4 (06:00→18:00)
[2017-10-29 08:00] VITALS: BP 125/73; PULSE 70; RESP 20; TEMP 97.2; O2SAT 99
--- NOTE | 2017-10-29 08:59 | HHI.PR ---
Subjective Remarks Patient seen and examined today for follow-up on hemorrhagic CVA, sacral decubitus. Patient is doing well. No acute events overnight. No change in clinical status. Objective Vitals Vital Signs Date Time Temp Pulse Resp B/P (MAP) Pulse Ox O2 Delivery O2 Flow Rate FiO2 10/29/17 04:00 98.0 70 16 139/91 (107) 100 10/29/17 00:00 98.0 67 18 135/85 (102) 95 10/28/17 20:57 98.2 79 16 144/79 (100) 94 10/28/17 18:30 88 16 131/78 (95) 10/28/17 16:00 98.1 87 16 172/94 (120) 100 10/28/17 12:00 97.4 51 18 204/126 (152) I/O 10/28/17 10/28/17 10/28/17 10/29/17 10/29/17 10/29/17 07:00 15:00 23:00 07:00 15:00 23:00 Intake Total 460 ml 1110 ml 180 ml Output Total 650 ml 850 ml 800 ml Balance -190 ml 260 ml -620 ml Intake Oral 0 ml IV Total 200 ml Tube Feeding 240 ml 480 ml Other 220 ml 430 ml 180 ml Output Urine Total 650 ml 850 ml 800 ml Result Diagram: 10/25/17 0500 10/25/17 0500 Objective Remarks GENERAL: Well-developed, well-nourished, in no acute distress. Awake, responds minimally with head nods. Trying to speak HEENT: Head is normocephalic without any lesions or masses noted. Facial features are symmetric. Eyes: Conjunctivae were clear. CARDIAC: Regular rhythm, regular rate. S1/S2 are heard. 2/6 ejection, no gallops or rubs. LUNGS: Clear to auscultation bilaterally. No wheeze, rhonchi or rales. No use of accessory muscles on inspiration or expiration. ABDOMEN: Soft, nontender. Nondistended. Bowel sounds heard in all 4 quadrants. No organomegaly or masses. Negative rebound, negative guarding, PEG tube noted without any signs of infection EXTREMITIES: No edema, pulses are equal bilaterally. No cyanosis or clubbing NEUROLOGY: Patient is moving left upper extremity and able to move left foot. Patient unable to move right upper and lower extremity. SKIN: Sacral wound with bandage at this time Procedures Peg Tube placed 05/08/17 (Dr. De Los Santos) Urinary Catheter: Yes Assessment to: Continue Cruz insert reason: Stage III/IV Press Ulcer Date of Insertion: Oct 11, 2017 Vascular Central Line Catheter: No A/P Assessment and Plan Sepsis with leukocytosis, febrile illness, tachycardia, sacral decubitus with perineal abscesses, resolved Continue IV cefepime, IV Levaquin for pseudomonas double coverage Discontinued vancomycin IV/Zosyn IV/fluconazole IV, Continue monitor for infection Blood cultures negative for 5 days Urine culture no growth for 48 hours C. difficile culture was negative Influenza testing is negative wound culture from sacral wound with Pseudomonas Consulted infectious disease for recommendations for continued fever who recommended continuation of antibiotic treatment with Zosyn for 4 weeks, end date 11/10/17. However patient with acute renal sufficiency, antibiotics changed CT of the pelvis that showed decubitus ulcer with small abscess in the right posterior perineal region and small abscess posterior and to the left rectum Sacral decubitus with perineal abscess, this will need incision, drainage and debridement Wound care nurse evaluated patient and made recommendations for wound care and surgical debridement 10/10/17, Gen. surgery was consulted for sacral decubitus. Was notified on 10/11/17 that general surgery does not do sacral decubitus debridement or surgeries 10/11/17. Case was discussed with plastic surgery who are actually not correctional officer chief at this time. Dr. Lai was able to arrange for to evaluate the patient 10/12/17. Plastic surgery, , evaluated the patient who recommended Santyl at this time and possible debridement in the near future 10/13/17. Patient remains septic, CT of the pelvis was performed which did indicate multiple abscess in the right posterior perineal area and posterior and left of the rectum, 10/13/17. Discussed this with plastic surgery Dr. Lai, who indicated that these abscesses are 2 deep and to close to rectal mucosal for plastic surgery. He recommended consulting colorectal surgery 10/13/17. Dr. Franklin was correctional officer chief for colorectal surgery, consult was placed to him for evaluation. Case was discussed with him on multiple occasions. He indicates that since this is connected to a sacral decubitus and since there is no communication with the rectum, this case is not appropriate for colorectal surgery, awaiting consultation report 10/15/17. Discussed with Dr. Abdullahi. He was planning a doing debridement of today, however was unable to obtain consent from family 10/17/17. Spoke with son, consents signed for I&D of sacral wound. Debridement performed, patient tolerated well. Dressing change orders in place. 10/19/17 Santyl to wound bed. DC Ranjeet. Continue BID dressing changes. 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 Neurosurgery evaluated patient states no surgical intervention Continue PT/OT/ST Consulted as indicated patient is stable to be discharged to rehabilitation facility Case management consulted for inpatient rehabilitation, who indicated patient is homeless, no discharge disposition to inpatient rehabilitation Palliative care was consulted for recommendations. They recommended, see evaluation which has been done. Family wants aggressive measures and placement to be performed Psychiatry indicates that the patient does not have decision-making capacity to participate in her treatment or discharge plan. Dysphagia suspect secondary to intracranial bleed, Post PEG placement 05/09/17. 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 GI Prophylaxis: Prevacid via PEG tube DVT Prophylaxis: Sequential compression devices, chemical prophylaxis contraindicated secondary to intracranial hemorrhage Palliative care: Reconsulted palliative care this time in light of the patient' s worsening condition, family still wishing full aggressive management Records were reviewed. Awaiting case management for discharge planning. No change in current treatment plan. Discharge Planning Case management for discharge planning Kayden Kelley Oct 29, 2017 08:59
[2017-10-29] MEDS: METOPROLOL TARTRATE 100 MG TAB PEG SCH ×2 (09:14→21:08)
[2017-10-29] MEDS: LANSOPRAZOLE SOLUTAB 30 MG TAB G-TUBE SCH (09:14)
[2017-10-29] MEDS: HYDROCHLOROTHIAZIDE 25 MG TAB PO SCH (09:14)
[2017-10-29] MEDS: CEFEPIME INJ 1,000 MG in SODIUM CHLORIDE 0.9% INJ 100 ML IV SCH ×2 (09:14→21:08)
[2017-10-29] MEDS: LACTIC ACID (AMMONIUM LACTATE) 12% LOTION 225 GM BTL TOPICAL SCH ×2 (09:18→21:00)
[2017-10-29] MEDS: LISINOPRIL 20 MG TAB PEG SCH ×2 (09:18→21:08)
[2017-10-29 12:00] VITALS: BP 138/67; PULSE 62; RESP 18; TEMP 97.4; O2SAT 100
[2017-10-29] MEDS: COLLAGENASE OINT 30 GM TUBE TOPICAL SCH ×2 (13:59→21:00)
[2017-10-29 16:00] VITALS: BP 118/75; PULSE 68; RESP 18; TEMP 97.2; O2SAT 98
[2017-10-29] MEDS: LEVOFLOXACIN 500 MG PREMIX INJ 100 ML IV SCH (18:00)
[2017-10-29 20:00] VITALS: BP 133/78; PULSE 89; RESP 16; TEMP 98.7; O2SAT 94
[2017-10-30] VITALS: BP 152/76; PULSE 78; RESP 18; TEMP 97.6; O2SAT 92
[2017-10-30] MEDS: NIFEdipine 20 MG CAP PEG SCH ×4 (00:12→17:59)
[2017-10-30] MEDS: hydrALAZINE HCL 50 MG TAB PEG SCH ×4 (00:12→17:59)
[2017-10-30] MEDS: FREE WATER G-TUBE SCH ×4 (00:13→17:59)
[2017-10-30 04:00] VITALS: BP 138/82; PULSE 74; RESP 18; TEMP 97.6; O2SAT 95
[2017-10-30] MEDS: HYDROCHLOROTHIAZIDE 25 MG TAB PO SCH (07:56)
[2017-10-30] MEDS: CEFEPIME INJ 1,000 MG in SODIUM CHLORIDE 0.9% INJ 100 ML IV SCH ×2 (07:56→21:29)
[2017-10-30] MEDS: METOPROLOL TARTRATE 100 MG TAB PEG SCH ×2 (07:56→21:30)
[2017-10-30] MEDS: LANSOPRAZOLE SOLUTAB 30 MG TAB G-TUBE SCH (07:56)
[2017-10-30] MEDS: LISINOPRIL 20 MG TAB PEG SCH ×2 (07:56→21:30)
[2017-10-30] MEDS: COLLAGENASE OINT 30 GM TUBE TOPICAL SCH (07:57)
[2017-10-30] MEDS: LACTIC ACID (AMMONIUM LACTATE) 12% LOTION 225 GM BTL TOPICAL SCH ×2 (07:57→21:30)
[2017-10-30 08:00] VITALS: BP 139/99; PULSE 84; RESP 16; TEMP 98; O2SAT 98
--- NOTE | 2017-10-30 08:07 | HHI.PR ---
Subjective Remarks Patient seen and examined today for follow-up on hemorrhagic CVA, sacral decubitus. Nursing staff indicating that right upper extremity more edematous today with pitting edema. vitals are stable. afebrile Objective Vitals Vital Signs Date Time Temp Pulse Resp B/P (MAP) Pulse Ox O2 Delivery O2 Flow Rate FiO2 10/30/17 04:00 97.6 74 18 138/82 (100) 95 10/30/17 00:00 97.6 78 18 152/76 (101) 92 10/29/17 20:00 98.7 89 16 133/78 (96) 94 10/29/17 16:00 97.2 68 18 118/75 (89) 98 10/29/17 12:00 97.4 62 18 138/67 (90) 100 I/O 10/29/17 10/29/17 10/29/17 10/30/17 10/30/17 10/30/17 07:00 15:00 23:00 07:00 15:00 23:00 Intake Total 180 ml 1420 ml 560 ml Output Total 800 ml 425 ml 2225 ml Balance -620 ml -425 ml 1420 ml -1665 ml IV Total 100 ml Tube Feeding 720 ml 240 ml Tube Irrigant 600 ml 170 ml Other 180 ml 150 ml Output Urine Total 800 ml 425 ml 1325 ml Stool Total 900 ml Objective Remarks GENERAL: Well-developed, well-nourished, in no acute distress. Awake, responds minimally with head nods. Trying to speak HEENT: Head is normocephalic without any lesions or masses noted. Facial features are symmetric. Eyes: Conjunctivae were clear. CARDIAC: Regular rhythm, regular rate. S1/S2 are heard. 2/6 ejection, no gallops or rubs. LUNGS: Clear to auscultation bilaterally. No wheeze, rhonchi or rales. No use of accessory muscles on inspiration or expiration. ABDOMEN: Soft, nontender. Nondistended. Bowel sounds heard in all 4 quadrants. No organomegaly or masses. Negative rebound, negative guarding, PEG tube noted without any signs of infection EXTREMITIES: No edema, pulses are equal bilaterally. No cyanosis or clubbing NEUROLOGY: Patient is moving left upper extremity and able to move left foot. Patient unable to move right upper and lower extremity. SKIN: Sacral wound with bandage at this time RIGHT UPPER EXTREMITY: 2+ pitting edema noted, no erythema Procedures Peg Tube placed 05/08/17 (Dr. De Los Santos) Urinary Catheter: Yes Assessment to: Continue Cruz insert reason: Stage III/IV Press Ulcer Date of Insertion: Oct 11, 2017 Vascular Central Line Catheter: No A/P Assessment and Plan Sepsis with leukocytosis, febrile illness, tachycardia, sacral decubitus with perineal abscesses, resolved Continue IV cefepime, IV Levaquin for pseudomonas double coverage Discontinued vancomycin IV/Zosyn IV/fluconazole IV, Continue monitor for infection Blood cultures negative for 5 days Urine culture no growth for 48 hours C. difficile culture was negative Influenza testing is negative wound culture from sacral wound with Pseudomonas Consulted infectious disease for recommendations for continued fever who recommended continuation of antibiotic treatment with Zosyn for 4 weeks, end date 11/10/17. However patient with acute renal sufficiency, antibiotics changed CT of the pelvis that showed decubitus ulcer with small abscess in the right posterior perineal region and small abscess posterior and to the left rectum Sacral decubitus with perineal abscess, this will need incision, drainage and debridement Wound care nurse evaluated patient and made recommendations for wound care and surgical debridement 10/10/17, Gen. surgery was consulted for sacral decubitus. Was notified on 10/11/17 that general surgery does not do sacral decubitus debridement or surgeries 10/11/17. Case was discussed with plastic surgery who are actually not admissions officer at this time. Dr. Lai was able to arrange for to evaluate the patient 10/12/17. Plastic surgery, , evaluated the patient who recommended Santyl at this time and possible debridement in the near future 10/13/17. Patient remains septic, CT of the pelvis was performed which did indicate multiple abscess in the right posterior perineal area and posterior and left of the rectum, 10/13/17. Discussed this with plastic surgery Dr. Lai, who indicated that these abscesses are 2 deep and to close to rectal mucosal for plastic surgery. He recommended consulting colorectal surgery 10/13/17. Dr. Franklin was admissions officer for colorectal surgery, consult was placed to him for evaluation. Case was discussed with him on multiple occasions. He indicates that since this is connected to a sacral decubitus and since there is no communication with the rectum, this case is not appropriate for colorectal surgery, awaiting consultation report 10/15/17. Discussed with Dr. Abdullahi. He was planning a doing debridement of today, however was unable to obtain consent from family 10/17/17. Spoke with son, consents signed for I&D of sacral wound. Debridement performed, patient tolerated well. Dressing change orders in place. 10/19/17 Santyl to wound bed. DC Dakins. Continue BID dressing changes. Right upper extremity edema Check upper extremity US Hypokalemia Likely secondary to likely wasting from diarrhea Replace and continue monitor Intracranial hemorrhage, 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 Neurosurgery evaluated patient states no surgical intervention Continue PT/OT/ST Consulted as indicated patient is stable to be discharged to rehabilitation facility Case management consulted for inpatient rehabilitation, who indicated patient is homeless, no discharge disposition to inpatient rehabilitation Palliative care was consulted for recommendations. They recommended, see evaluation which has been done. Family wants aggressive measures and placement to be performed Psychiatry indicates that the patient does not have decision-making capacity to participate in her treatment or discharge plan. Dysphagia suspect secondary to intracranial bleed, Post PEG placement 05/09/17. 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 GI Prophylaxis: Prevacid via PEG tube DVT Prophylaxis: Sequential compression devices, chemical prophylaxis contraindicated secondary to intracranial hemorrhage Palliative care: Reconsulted palliative care this time in light of the patient' s worsening condition, family still wishing full aggressive management Discharge Planning Case management for discharge planning Kayden Kelley Oct 30, 2017 08:07
--- NOTE | 2017-10-30 11:24 | RADRPT ---
EXAM DATE/TIME: 10/30/2017 10:48 [facility] COMPARISON: US ARM RIGHT VENOUS DOPPLER, August 03, 2017, 4:13. INDICATIONS : Right arm swelling. MEDICAL HISTORY : Left intracranial hemorrhage. Right hemiparesis. SURGICAL HISTORY : None. ENCOUNTER: Subsequent ACUITY: 3 months PAIN SCORE: Non-responsive LOCATION: Right arm. FINDINGS: There is spontaneous flow documented in the brachial, basilic, cephalic, axillary, and subclavian vei ns. The vessels are compressible and augmentation response is documented. No filling defects are se en. The flow is phasic with respiration. Direction of flow in the jugular vein is caudal. CONCLUSION: Negative for DVT Harry Dumas MD FACR on October 30, 2017 at 11:22 Board Certified Radiologist. This report was verified electronically.
[2017-10-30 12:00] VITALS: BP 143/88; PULSE 67; RESP 16; TEMP 97.8; O2SAT 97
[2017-10-30 16:00] VITALS: BP 137/93; PULSE 116; RESP 16; TEMP 99.5; O2SAT 100
[2017-10-30] MEDS: LEVOFLOXACIN 500 MG PREMIX INJ 100 ML IV SCH (17:59)
[2017-10-30 20:00] VITALS: BP 114/69; PULSE 89; RESP 20; TEMP 98.1; O2SAT 100
[2017-10-31] MEDS: NIFEdipine 20 MG CAP PEG SCH ×4 (00:45→18:10)
[2017-10-31] MEDS: hydrALAZINE HCL 50 MG TAB PEG SCH ×4 (00:45→18:10)
[2017-10-31] MEDS: FREE WATER G-TUBE SCH ×4 (00:45→17:52)
[2017-10-31 04:00] VITALS: BP 122/73; PULSE 73
[2017-10-31] MEDS: COLLAGENASE OINT 30 GM TUBE TOPICAL SCH ×3 (05:51→21:08)
[2017-10-31 08:00] VITALS: BP 126/85; PULSE 78; RESP 14; TEMP 97.5; O2SAT 99
--- NOTE | 2017-10-31 09:25 | HHI.PR ---
Subjective Remarks Follow up hemorrhagic CVA and sacral wound. Patient seen and examined, lying in bed asleep. Awakens to voice. Denies any pain or discomfort. Does display continued right upper extremity swelling, ultrasound negative for DVT. Objective Vitals Vital Signs Date Time Temp Pulse Resp B/P (MAP) Pulse Ox O2 Delivery O2 Flow Rate FiO2 10/31/17 04:00 73 122/73 (89) 10/30/17 20:00 98.1 89 20 114/69 (84) 100 10/30/17 16:00 99.5 116 16 137/93 (108) 100 10/30/17 12:00 97.8 67 16 143/88 (106) 97 I/O 10/30/17 10/30/17 10/30/17 10/31/17 10/31/17 10/31/17 07:00 15:00 23:00 07:00 15:00 23:00 Intake Total 560 ml 100 ml 1320 ml 840 ml Output Total 2225 ml 750 ml 1250 ml Balance -1665 ml 100 ml 570 ml -410 ml Intake Oral 0 ml IV Total 100 ml 200 ml Tube Feeding 240 ml 720 ml 240 ml Tube Irrigant 170 ml 600 ml Other 150 ml 400 ml Output Urine Total 1325 ml 750 ml 1250 ml Stool Total 900 ml # Voids 1 Imaging Last Impressions Upper Extremity Ultrasound 10/30/17 0000 Signed Impressions: Service Date/Time: Monday, October 30, 2017 10:48 - CONCLUSION: Negative for DVT Harry Dumas MD FACR Pelvis CT 10/13/17 0000 Signed Impressions: Service Date/Time: Friday, October 13, 2017 12:02 - CONCLUSION: 1. Decubitus ulcer with small abscess in the right posterior perineal region measuring 3.1 x 4.6 cm. There is also a small abscess posterior and to the left of the rectum measuring 3.2 x 2.3 cm. aJnn Weber MD Chest X-Ray 10/12/17 0000 Signed Impressions: Service Date/Time: October 12:18 - CONCLUSION: No acute disease. Jann Weber MD Head CT 04/25/17 0000 Signed Impressions: Service Date/Time: Tuesday, April 25, 2017 18:02 - CONCLUSION: 1. Evolving left thalamic hematoma. No new hemorrhage. Adi Quarles MD Abdomen X-Ray 04/12/17 1538 Signed Impressions: Service Date/Time: Wednesday, April 12, 2017 17:29 - CONCLUSION: Nonobstructive bowel gas pattern. Suresh Zapata MD Neck CTA 04/10/17 0000 Signed Impressions: Service Date/Time: Monday, April 10, 2017 22:28 - CONCLUSION: The internal carotid arteries are normal bilaterally. No significant atherosclerotic disease is noted. Eliud Du MD Head CTA 04/10/17 0000 Signed Impressions: Service Date/Time: Monday, April 10, 2017 22:50 - CONCLUSION: Mild dilatation of the basilar tip without discrete aneurysm. Some narrowing of the left middle cerebral branch after the bifurcation. Prominent left thalamic hemorrhage. Eliud Du MD Objective Remarks GENERAL: Well-developed, well-nourished, in no acute distress. Awake, responds minimally with head nods, tracking with eyes. Expressive aphasic, attempts to speak intermittently. SKIN: Stage IV sacral wound noted, dressing in place. Right upper extremity swelling. HEENT: Head is normocephalic without any lesions or masses noted. Facial features are symmetric. Eyes: Conjunctivae were clear. Continue to monitor. CARDIAC: Regular rhythm, regular rate. S1/S2 are heard. 2/6 ejection, no gallops or rubs. LUNGS: Clear to auscultation bilaterally. No wheeze, rhonchi or rales. No use of accessory muscles on inspiration or expiration. ABDOMEN: Soft, nontender. Nondistended. Bowel sounds heard in all 4 quadrants. No organomegaly or masses. Negative guarding. PEG tube noted without any signs of infection, skin c/d/i, dressing intact. No erythema. EXTREMITIES: No edema, pulses are equal bilaterally. No cyanosis or clubbing NEUROLOGY: Patient is moving left upper extremity and able to move left foot. Patient unable to move right upper and lower extremity. Procedures Peg Tube placed 05/08/17 (Dr. De Los Santos) Urinary Catheter: Yes Assessment to: Continue Cruz insert reason: Stage III/IV Press Ulcer Date of Insertion: Oct 11, 2017 A/P Assessment and Plan Sepsis with leukocytosis, febrile illness, tachycardia, sacral decubitus with perineal abscesses, resolved Continue IV cefepime, IV Levaquin for pseudomonas double coverage Discontinued vancomycin IV/Zosyn IV/fluconazole IV Continue monitor for infection Blood cultures negative to date. Urine culture no growth to date. C. difficile culture was negative Influenza testing is negative Wound culture from sacral wound with Pseudomonas Consulted infectious disease for recommendations for continued fever who recommended continuation of antibiotic treatment with Zosyn for 4 weeks, end date 11/10/17. However patient with acute renal sufficiency, antibiotics changed. CT of the pelvis that showed decubitus ulcer with small abscess in the right posterior perineal region and small abscess posterior and to the left rectum Sacral decubitus with perineal abscess Wound care nurse evaluated patient and made recommendations for wound care and surgical debridement 10/10/17, Gen. surgery was consulted for sacral decubitus. Was notified on 10/11/17 that general surgery does not do sacral decubitus debridement or surgeries 10/11/17. Case was discussed with plastic surgery who are actually not national service officer at this time. Dr. Lai was able to arrange for to evaluate the patient 10/12/17. Plastic surgery, , evaluated the patient who recommended Santyl at this time and possible debridement in the near future 10/13/17. Patient remains septic, CT of the pelvis was performed which did indicate multiple abscess in the right posterior perineal area and posterior and left of the rectum, 10/13/17. Discussed this with plastic surgery Dr. Lai, who indicated that these abscesses are 2 deep and to close to rectal mucosal for plastic surgery. He recommended consulting colorectal surgery 10/13/17. Dr. Franklin was national service officer for colorectal surgery, consult was placed to him for evaluation. Case was discussed with him on multiple occasions. He indicates that since this is connected to a sacral decubitus and since there is no communication with the rectum, this case is not appropriate for colorectal surgery, awaiting consultation report 10/15/17. Discussed with Dr. Abdullahi. He was planning a doing debridement of today, however was unable to obtain consent from family 10/17/17. Spoke with son, consents signed for I&D of sacral wound. Debridement performed, patient tolerated well. Dressing change orders in place. 10/19/17 Santyl to wound bed. DC Dakins. Continue BID dressing changes. Right upper extremity edema Upper extremity US negative for DVT. Hypokalemia Likely secondary to likely wasting from diarrhea Replace and continue monitor Intracranial hemorrhage, hemorrhagic CVA Secondary to uncontrolled hypertension and hypertensive emergency Thalamic ICH with intraventricular extension. Neurosurgery evaluated patient states no surgical intervention Continue PT/OT/ST Consulted as indicated patient is stable to be discharged to rehabilitation facility Case management consulted for inpatient rehabilitation, who indicated patient is homeless, no discharge disposition to inpatient rehabilitation Palliative care was consulted for recommendations. They recommended, see evaluation which has been done. Family wants aggressive measures and placement to be performed Psychiatry indicates that the patient does not have decision-making capacity to participate in her treatment or discharge plan. Dysphagia suspect secondary to intracranial bleed, Post PEG placement 05/09/17. 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 GI Prophylaxis: Prevacid via PEG tube DVT Prophylaxis: Sequential compression devices, chemical prophylaxis contraindicated secondary to intracranial hemorrhage Palliative care: Reconsulted palliative care this time in light of the patient' s worsening condition, family still wishing full aggressive management Discharge Planning Patient is stable to be discharged to rehabilitation facility. Case management assisting. Veena Calvillo Oct 31, 2017 09:25
[2017-10-31] MEDS: METOPROLOL TARTRATE 100 MG TAB PEG SCH ×2 (10:29→21:09)
[2017-10-31] MEDS: HYDROCHLOROTHIAZIDE 25 MG TAB PO SCH (10:31)
[2017-10-31] MEDS: LISINOPRIL 20 MG TAB PEG SCH ×2 (10:31→21:10)
[2017-10-31] MEDS: LANSOPRAZOLE SOLUTAB 30 MG TAB G-TUBE SCH (10:33)
[2017-10-31] MEDS: LACTIC ACID (AMMONIUM LACTATE) 12% LOTION 225 GM BTL TOPICAL SCH ×2 (10:35→21:11)
[2017-10-31] MEDS: CEFEPIME INJ 1,000 MG in SODIUM CHLORIDE 0.9% INJ 100 ML IV SCH ×2 (10:42→21:09)
[2017-10-31] MEDS: REMOVE OLD CATAPRES (CLONIDINE) PATCH T-DERMAL SCH (15:00)
[2017-10-31 16:00] VITALS: BP 148/107; PULSE 59; RESP 14; TEMP 96.7; O2SAT 100
[2017-10-31] MEDS: cloNIDine HCL 0.3 MG/24 HR PATCH T-DERMAL SCH (16:07)
[2017-10-31] MEDS: LEVOFLOXACIN 500 MG PREMIX INJ 100 ML IV SCH (17:52)
[2017-10-31 20:00] VITALS: BP 139/84; PULSE 64; RESP 20; TEMP 99.1; O2SAT 99
[2017-11-01] MEDS: hydrALAZINE HCL 50 MG TAB PEG SCH ×4 (00:58→18:01)
[2017-11-01] MEDS: NIFEdipine 20 MG CAP PEG SCH ×4 (00:58→18:01)
[2017-11-01 04:00] VITALS: BP 138/85; PULSE 70; RESP 20; TEMP 99.3; O2SAT 99
[2017-11-01] MEDS: FREE WATER G-TUBE SCH ×4 (05:48→17:50)
[2017-11-01 08:00] VITALS: BP 118/56; PULSE 83; RESP 20; TEMP 97.5; O2SAT 98
[2017-11-01] MEDS: HYDROCHLOROTHIAZIDE 25 MG TAB PO SCH (09:00)
[2017-11-01] MEDS: CEFEPIME INJ 1,000 MG in SODIUM CHLORIDE 0.9% INJ 100 ML IV SCH ×2 (09:34→23:48)
[2017-11-01] MEDS: METOPROLOL TARTRATE 100 MG TAB PEG SCH ×2 (09:35→23:48)
[2017-11-01] MEDS: LISINOPRIL 20 MG TAB PEG SCH ×2 (09:35→23:49)
[2017-11-01] MEDS: LANSOPRAZOLE SOLUTAB 30 MG TAB G-TUBE SCH (09:35)
[2017-11-01] MEDS: LACTIC ACID (AMMONIUM LACTATE) 12% LOTION 225 GM BTL TOPICAL SCH ×2 (09:36→23:49)
--- NOTE | 2017-11-01 09:40 | HHI.PR ---
Subjective Remarks Follow up hemorrhagic CVA and sacral wound. Patient seen and examined, asleep. Awakens to voice. No change in clinical condition. No reports of any acute events overnight. Denies any pain. Afebrile. Continued wound dressing changes. Objective Vitals Vital Signs Date Time Temp Pulse Resp B/P (MAP) Pulse Ox O2 Delivery O2 Flow Rate FiO2 11/01/17 08:00 97.5 83 20 118/56 (76) 98 11/01/17 04:00 99.3 70 20 138/85 (102) 99 10/31/17 20:00 99.1 64 20 139/84 (102) 99 10/31/17 16:00 96.7 59 14 148/107 (121) 100 I/O 10/31/17 10/31/17 10/31/17 11/01/17 11/01/17 11/01/17 07:00 15:00 23:00 07:00 15:00 23:00 Intake Total 840 ml 100 ml 1520 ml 0 ml Output Total 1250 ml 400 ml 350 ml 1000 ml Balance -410 ml -300 ml 1170 ml -1000 ml Intake Oral 0 ml 0 ml IV Total 100 ml 100 ml Tube Feeding 240 ml 720 ml Tube Irrigant 600 ml 700 ml Output Urine Total 1250 ml 400 ml 350 ml 1000 ml # Bowel Movements 0 Imaging Last Impressions Upper Extremity Ultrasound 10/30/17 0000 Signed Impressions: Service Date/Time: Monday, October 30, 2017 10:48 - CONCLUSION: Negative for DVT Harry Dumas MD FACR Pelvis CT 10/13/17 0000 Signed Impressions: Service Date/Time: Friday, October 13, 2017 12:02 - CONCLUSION: 1. Decubitus ulcer with small abscess in the right posterior perineal region measuring 3.1 x 4.6 cm. There is also a small abscess posterior and to the left of the rectum measuring 3.2 x 2.3 cm. Jann Weber MD Chest X-Ray 10/12/17 0000 Signed Impressions: Service Date/Time: October 12:18 - CONCLUSION: No acute disease. Jann Weber MD Head CT 04/25/17 0000 Signed Impressions: Service Date/Time: Tuesday, April 25, 2017 18:02 - CONCLUSION: 1. Evolving left thalamic hematoma. No new hemorrhage. Adi Quarles MD Abdomen X-Ray 04/12/17 1538 Signed Impressions: Service Date/Time: Wednesday, April 12, 2017 17:29 - CONCLUSION: Nonobstructive bowel gas pattern. Suresh Zapata MD Neck CTA 04/10/17 0000 Signed Impressions: Service Date/Time: Monday, April 10, 2017 22:28 - CONCLUSION: The internal carotid arteries are normal bilaterally. No significant atherosclerotic disease is noted. Eliud Du MD Head CTA 04/10/17 0000 Signed Impressions: Service Date/Time: Monday, April 10, 2017 22:50 - CONCLUSION: Mild dilatation of the basilar tip without discrete aneurysm. Some narrowing of the left middle cerebral branch after the bifurcation. Prominent left thalamic hemorrhage. Eliud Du MD Objective Remarks GENERAL: Well-developed, well-nourished, in no acute distress. Awake, responds minimally with head nods, tracking with eyes. Expressive aphasic, attempts to speak intermittently. SKIN: Stage IV sacral wound noted, dressing in place. Right upper extremity swelling. HEENT: Head is normocephalic without any lesions or masses noted. Facial features are symmetric. Eyes: Conjunctivae were clear. Continue to monitor. CARDIAC: Regular rhythm, regular rate. S1/S2 are heard. 2/6 ejection, no gallops or rubs. LUNGS: Clear to auscultation bilaterally. No wheeze, rhonchi or rales. No use of accessory muscles on inspiration or expiration. ABDOMEN: Soft, nontender. Nondistended. Bowel sounds heard in all 4 quadrants. No organomegaly or masses. Negative guarding. PEG tube noted without any signs of infection, skin c/d/i, dressing intact. No erythema. EXTREMITIES: No edema, pulses are equal bilaterally. No cyanosis or clubbing NEUROLOGY: Patient is moving left upper extremity and able to move left foot. Patient unable to move right upper and lower extremity. Procedures Peg Tube placed 05/08/17 (Dr. De Los Santos) Urinary Catheter: Yes Assessment to: Continue Cruz insert reason: Stage III/IV Press Ulcer Date of Insertion: Oct 11, 2017 A/P Assessment and Plan Sepsis with leukocytosis, febrile illness, tachycardia, sacral decubitus with perineal abscesses, resolved Continue IV cefepime, IV Levaquin for pseudomonas double coverage Discontinued vancomycin IV/Zosyn IV/fluconazole IV Continue monitor for infection Blood cultures negative to date. Urine culture no growth to date. C. difficile culture was negative Influenza testing is negative Wound culture from sacral wound with Pseudomonas Consulted infectious disease for recommendations for continued fever who recommended continuation of antibiotic treatment with Zosyn for 4 weeks, end date 11/10/17. However patient with acute renal sufficiency, antibiotics changed. CT of the pelvis that showed decubitus ulcer with small abscess in the right posterior perineal region and small abscess posterior and to the left rectum Sacral decubitus with perineal abscess Wound care nurse evaluated patient and made recommendations for wound care and surgical debridement 10/10/17, Gen. surgery was consulted for sacral decubitus. Was notified on 10/11/17 that general surgery does not do sacral decubitus debridement or surgeries 10/11/17. Case was discussed with plastic surgery who are actually not family preservation caseworker at this time. Dr. Lai was able to arrange for to evaluate the patient 10/12/17. Plastic surgery, , evaluated the patient who recommended Santyl at this time and possible debridement in the near future 10/13/17. Patient remains septic, CT of the pelvis was performed which did indicate multiple abscess in the right posterior perineal area and posterior and left of the rectum, 10/13/17. Discussed this with plastic surgery Dr. Lai, who indicated that these abscesses are 2 deep and to close to rectal mucosal for plastic surgery. He recommended consulting colorectal surgery 10/13/17. Dr. Franklin was family preservation caseworker for colorectal surgery, consult was placed to him for evaluation. Case was discussed with him on multiple occasions. He indicates that since this is connected to a sacral decubitus and since there is no communication with the rectum, this case is not appropriate for colorectal surgery, awaiting consultation report 10/15/17. Discussed with Dr. Abdullahi. He was planning a doing debridement of today, however was unable to obtain consent from family 10/17/17. Spoke with son, consents signed for I&D of sacral wound. Debridement performed, patient tolerated well. Dressing change orders in place. 10/19/17 Santyl to wound bed. EARL Pollack. Continue BID dressing changes. Right upper extremity edema Upper extremity US negative for DVT. Encourage elevation, swelling improving. Hypokalemia Likely secondary to likely wasting from diarrhea Replace and continue monitor Intracranial hemorrhage, hemorrhagic CVA Secondary to uncontrolled hypertension and hypertensive emergency Thalamic ICH with intraventricular extension. Neurosurgery evaluated patient states no surgical intervention Continue PT/OT/ST Consulted as indicated patient is stable to be discharged to rehabilitation facility Case management consulted for inpatient rehabilitation, who indicated patient is homeless, no discharge disposition to inpatient rehabilitation Palliative care was consulted for recommendations. They recommended, see evaluation which has been done. Family wants aggressive measures and placement to be performed Psychiatry indicates that the patient does not have decision-making capacity to participate in her treatment or discharge plan. Dysphagia suspect secondary to intracranial bleed, Post PEG placement 05/09/17. 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 GI Prophylaxis: Prevacid via PEG tube DVT Prophylaxis: Sequential compression devices, chemical prophylaxis contraindicated secondary to intracranial hemorrhage Palliative care: Reconsulted palliative care this time in light of the patient' s worsening condition, family still wishing full aggressive management Discharge Planning Patient is stable to be discharged to rehabilitation facility. Case management assisting. Veena Calvillo Nov 01, 2017 09:40
[2017-11-01 12:00] VITALS: BP 112/73; PULSE 76; RESP 18; TEMP 97.8; O2SAT 97
[2017-11-01] MEDS: COLLAGENASE OINT 30 GM TUBE TOPICAL SCH ×2 (14:53→21:00)
[2017-11-01 16:00] VITALS: BP 139/77; PULSE 68; RESP 18; TEMP 98.6; O2SAT 97
[2017-11-01] MEDS: LEVOFLOXACIN 500 MG PREMIX INJ 100 ML IV SCH (18:02)
[2017-11-01 20:00] VITALS: BP 132/91; PULSE 82; RESP 18; TEMP 98; O2SAT 97
[2017-11-02] VITALS (7 sets, daily range): BP systolic 106–131; BP diastolic 60–79; PULSE 18–95; RESP 16–18; TEMP 96.6–98.9; O2SAT 91–99
[2017-11-02] MEDS: NIFEdipine 20 MG CAP PEG SCH ×4 (00:51→17:25)
[2017-11-02] MEDS: hydrALAZINE HCL 50 MG TAB PEG SCH ×4 (00:55→17:25)
[2017-11-02] MEDS: FREE WATER G-TUBE SCH ×4 (05:49→17:25)
[2017-11-02] MEDS: METOPROLOL TARTRATE 100 MG TAB PEG SCH ×2 (08:23→21:56)
[2017-11-02] MEDS: LISINOPRIL 20 MG TAB PEG SCH ×2 (08:23→21:57)
[2017-11-02] MEDS: CEFEPIME INJ 1,000 MG in SODIUM CHLORIDE 0.9% INJ 100 ML IV SCH ×2 (08:23→21:56)
[2017-11-02] MEDS: LACTIC ACID (AMMONIUM LACTATE) 12% LOTION 225 GM BTL TOPICAL SCH ×2 (08:24→21:57)
[2017-11-02] MEDS: HYDROCHLOROTHIAZIDE 25 MG TAB PO SCH (08:24)
[2017-11-02] MEDS: COLLAGENASE OINT 30 GM TUBE TOPICAL SCH ×2 (08:24→21:57)
[2017-11-02] MEDS: LANSOPRAZOLE SOLUTAB 30 MG TAB G-TUBE SCH (08:28)
--- NOTE | 2017-11-02 08:32 | HHI.PR ---
Subjective Remarks No acute changes overnight. Pt doing well per nursing. No fevers overnight. Current dressing is w santyl. Objective Vital Signs Date Time Temp Pulse Resp B/P (MAP) Pulse Ox O2 Delivery O2 Flow Rate FiO2 11/02/17 08:00 96.6 18 18 106/62 (77) 91 11/02/17 04:00 98.3 89 16 119/79 (92) 95 11/02/17 00:00 97.8 95 16 129/79 (96) 95 11/01/17 20:00 98.0 82 18 132/91 (105) 97 11/01/17 16:00 98.6 68 18 139/77 (97) 97 11/01/17 12:00 97.8 76 18 112/73 (86) 97 I/O 11/01/17 11/01/17 11/01/17 11/02/17 11/02/17 11/02/17 07:00 15:00 23:00 07:00 15:00 23:00 Intake Total 0 ml 200 ml 640 ml Output Total 1000 ml 525 ml 1300 ml Balance -1000 ml -525 ml 200 ml -660 ml Intake Oral 0 ml IV Total 200 ml Tube Feeding 240 ml Other 400 ml Output Urine Total 1000 ml 525 ml 1300 ml # Bowel Movements 0 Procedures No procedures performed Objective Remarks NAD Sleeping, easily arousable Moist mucous membranes Non labored breathing Abdomen soft Wound roughly 4cm, undermining less, wound base w/ healthy granulation except for ~1-2cm area centrally of friable sacral periosteum,no signs infection Assessment and Plan Problem List: (1) Sacral decubitus ulcer ICD Codes: L89.159 - Pressure ulcer of sacral region, unspecified stage Status: Chronic Plan: Assessment plan Recommend returning to [facility] a day. Primary to check prealbumin, albumin , total protein, and serum transferrin to better assess nutrition. Assessment and Plan Wound improved slowly Wound bed granulating Would recommend VAC dressing as central 'fibrinous area' seems more like periosteum which is friable d/t being open No signs infection Nutrition- please recheck prealbumin as last one 2 weeks ago, and this will allow for trending Problem Qualifiers (1) Sacral decubitus ulcer: Qualified Codes: L89.150 - Pressure ulcer of sacral region, unstageable Rojelio Alcantar MD Nov 02, 2017 08:32
--- NOTE | 2017-11-02 17:07 | HHI.PR ---
Subjective Remarks Follow up hemorrhagic CVA and sacral wound. Patient seen and examined, lying in bed comfortably awake and alert. Denies any pain or discomfort. Plastic surgery has been following patient, saw today with new recommendations for wound vac. Order for wound care nurse to see patient and place vac. Trending prealbumin. Follow. Afebrile. Continue antibiotics. Objective Vitals Vital Signs Date Time Temp Pulse Resp B/P (MAP) Pulse Ox O2 Delivery O2 Flow Rate FiO2 11/02/17 16:07 98.0 70 18 112/75 (87) 99 11/02/17 12:05 96.8 80 18 107/60 (76) 99 11/02/17 12:04 96.8 80 18 107/60 (76) 99 11/02/17 08:00 96.6 91 18 106/62 (77) 91 11/02/17 04:00 98.3 89 16 119/79 (92) 95 11/02/17 00:00 97.8 95 16 129/79 (96) 95 11/01/17 20:00 98.0 82 18 132/91 (105) 97 I/O 11/01/17 11/01/17 11/01/17 11/02/17 11/02/17 11/02/17 06:59 14:59 22:59 06:59 14:59 22:59 Intake Total 0 ml 200 ml 640 ml 100 ml Output Total 1000 ml 525 ml 1300 ml 900 ml Balance -1000 ml -525 ml 200 ml -660 ml -800 ml Intake Oral 0 ml IV Total 200 ml 100 ml Tube Feeding 240 ml Other 400 ml Output Urine Total 1000 ml 525 ml 1300 ml Stool Total 900 ml # Bowel Movements 0 Imaging Last Impressions Upper Extremity Ultrasound 10/30/17 0000 Signed Impressions: Service Date/Time: Monday, October 30, 2017 10:48 - CONCLUSION: Negative for DVT Harry Dumas MD FACR Pelvis CT 10/13/17 0000 Signed Impressions: Service Date/Time: Friday, October 13, 2017 12:02 - CONCLUSION: 1. Decubitus ulcer with small abscess in the right posterior perineal region measuring 3.1 x 4.6 cm. There is also a small abscess posterior and to the left of the rectum measuring 3.2 x 2.3 cm. Jann Weber MD Chest X-Ray 10/12/17 0000 Signed Impressions: Service Date/Time: October 12:18 - CONCLUSION: No acute disease. Jann Weber MD Head CT 04/25/17 0000 Signed Impressions: Service Date/Time: Tuesday, April 25, 2017 18:02 - CONCLUSION: 1. Evolving left thalamic hematoma. No new hemorrhage. Adi Quarles MD Abdomen X-Ray 04/12/17 1538 Signed Impressions: Service Date/Time: Wednesday, April 12, 2017 17:29 - CONCLUSION: Nonobstructive bowel gas pattern. Suersh Zapata MD Neck CTA 04/10/17 0000 Signed Impressions: Service Date/Time: Monday, April 10, 2017 22:28 - CONCLUSION: The internal carotid arteries are normal bilaterally. No significant atherosclerotic disease is noted. Eliud Du MD Head CTA 04/10/17 0000 Signed Impressions: Service Date/Time: Monday, April 10, 2017 22:50 - CONCLUSION: Mild dilatation of the basilar tip without discrete aneurysm. Some narrowing of the left middle cerebral branch after the bifurcation. Prominent left thalamic hemorrhage. Eliud Du MD Objective Remarks GENERAL: Well-developed, well-nourished, in no acute distress. Awake, responds minimally with head nods, tracking with eyes. Expressive aphasic, attempts to speak intermittently. SKIN: Stage IV sacral wound noted, dressing in place. Right upper extremity swelling improved. HEENT: Head is normocephalic without any lesions or masses noted. Facial features are symmetric. Eyes: Conjunctivae were clear. Continue to monitor. CARDIAC: Regular rhythm, regular rate. S1/S2 are heard. 2/6 ejection, no gallops or rubs. LUNGS: Clear to auscultation bilaterally. No wheeze, rhonchi or rales. No use of accessory muscles on inspiration or expiration. ABDOMEN: Soft, nontender. Nondistended. Bowel sounds heard in all 4 quadrants. No organomegaly or masses. Negative guarding. PEG tube noted without any signs of infection, skin c/d/i, dressing intact. No erythema. EXTREMITIES: No edema, pulses are equal bilaterally. No cyanosis or clubbing NEUROLOGY: Patient is moving left upper extremity and able to move left foot. Patient unable to move right upper and lower extremity. Procedures Peg Tube placed 05/08/17 (Dr. De Los Santos) Urinary Catheter: Yes Assessment to: Continue Cruz insert reason: Stage III/IV Press Ulcer Date of Insertion: Oct 11, 2017 A/P Assessment and Plan Sepsis with leukocytosis, febrile illness, tachycardia, sacral decubitus with perineal abscesses, resolved Continue IV cefepime, IV Levaquin for pseudomonas double coverage Discontinued vancomycin IV/Zosyn IV/fluconazole IV Continue monitor for infection Blood cultures negative to date. Urine culture no growth to date. C. difficile culture was negative Influenza testing is negative Wound culture from sacral wound with Pseudomonas Consulted infectious disease for recommendations for continued fever who recommended continuation of antibiotic treatment with Zosyn for 4 weeks, end date 11/10/17. However patient with acute renal sufficiency, antibiotics changed. CT of the pelvis that showed decubitus ulcer with small abscess in the right posterior perineal region and small abscess posterior and to the left rectum Sacral decubitus with perineal abscess Wound care nurse evaluated patient and made recommendations for wound care and surgical debridement 10/10/17, Gen. surgery was consulted for sacral decubitus. Was notified on 10/11/17 that general surgery does not do sacral decubitus debridement or surgeries 10/11/17. Case was discussed with plastic surgery who are actually not fire controlman at this time. Dr. Lai was able to arrange for to evaluate the patient 10/12/17. Plastic surgery, , evaluated the patient who recommended Santyl at this time and possible debridement in the near future 10/13/17. Patient remains septic, CT of the pelvis was performed which did indicate multiple abscess in the right posterior perineal area and posterior and left of the rectum, 10/13/17. Discussed this with plastic surgery Dr. Lai, who indicated that these abscesses are 2 deep and to close to rectal mucosal for plastic surgery. He recommended consulting colorectal surgery 10/13/17. Dr. Franklin was fire controlman for colorectal surgery, consult was placed to him for evaluation. Case was discussed with him on multiple occasions. He indicates that since this is connected to a sacral decubitus and since there is no communication with the rectum, this case is not appropriate for colorectal surgery, awaiting consultation report 10/15/17. Discussed with Dr. Abdullahi. He was planning a doing debridement of today, however was unable to obtain consent from family 10/17/17. Spoke with son, consents signed for I&D of sacral wound. Debridement performed, patient tolerated well. Dressing change orders in place. 10/19/17 Santyl to wound bed. EARL Pollack. Continue BID dressing changes. 11/02/17 Ortiz saw patient with recommendations for wound vac. Awaiting forming tube selector. Right upper extremity edema Upper extremity US negative for DVT. Encourage elevation, swelling improving. Hypokalemia Likely secondary to likely wasting from diarrhea Replace and continue monitor Intracranial hemorrhage, hemorrhagic CVA Secondary to uncontrolled hypertension and hypertensive emergency Thalamic ICH with intraventricular extension. Neurosurgery evaluated patient states no surgical intervention Continue PT/OT/ST Consulted as indicated patient is stable to be discharged to rehabilitation facility Case management consulted for inpatient rehabilitation, who indicated patient is homeless, no discharge disposition to inpatient rehabilitation Palliative care was consulted for recommendations. They recommended, see evaluation which has been done. Family wants aggressive measures and placement to be performed Psychiatry indicates that the patient does not have decision-making capacity to participate in her treatment or discharge plan. Dysphagia suspect secondary to intracranial bleed, Post PEG placement 05/09/17. 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 GI Prophylaxis: Prevacid via PEG tube DVT Prophylaxis: Sequential compression devices, chemical prophylaxis contraindicated secondary to intracranial hemorrhage Palliative care: Reconsulted palliative care this time in light of the patient' s worsening condition, family still wishing full aggressive management Discharge Planning Patient is stable to be discharged to rehabilitation facility. Case management assisting. Veena Calvillo Nov 02, 2017 17:07
[2017-11-02] MEDS: LEVOFLOXACIN 500 MG PREMIX INJ 100 ML IV SCH (17:25)
[2017-11-02 18:58] LABS: ALBUMIN 3.2 GM/DL (3.4-5.0)
[2017-11-03] VITALS: BP 128/80; PULSE 90; RESP 17; TEMP 98.1; O2SAT 97
[2017-11-03] MEDS: FREE WATER G-TUBE SCH ×5 (01:03→23:51)
[2017-11-03] MEDS: hydrALAZINE HCL 50 MG TAB PEG SCH ×5 (01:05→23:51)
[2017-11-03] MEDS: NIFEdipine 20 MG CAP PEG SCH ×5 (01:05→23:51)
[2017-11-03 08:00] VITALS: BP 137/79; PULSE 86; RESP 18; TEMP 97.1; O2SAT 100
[2017-11-03] MEDS: LANSOPRAZOLE SOLUTAB 30 MG TAB G-TUBE SCH (08:54)
[2017-11-03] MEDS: LISINOPRIL 20 MG TAB PEG SCH ×2 (08:54→21:46)
[2017-11-03] MEDS: CEFEPIME INJ 1,000 MG in SODIUM CHLORIDE 0.9% INJ 100 ML IV SCH ×2 (08:54→20:05)
[2017-11-03] MEDS: LACTIC ACID (AMMONIUM LACTATE) 12% LOTION 225 GM BTL TOPICAL SCH ×2 (08:55→21:47)
[2017-11-03] MEDS: METOPROLOL TARTRATE 100 MG TAB PEG SCH ×2 (08:55→21:46)
[2017-11-03] MEDS: COLLAGENASE OINT 30 GM TUBE TOPICAL SCH ×2 (08:55→21:00)
[2017-11-03] MEDS: HYDROCHLOROTHIAZIDE 25 MG TAB PO SCH (08:55)
--- NOTE | 2017-11-03 10:07 | HHI.PR ---
Subjective Remarks Follow up hemorrhagic CVA and sacral wound. Patient seen and examined, lying in bed awake. Comfortable. In NAD. No reports of any acute events overnight. VSS. Afebrile. Awaiting placement of wound vac from printing mechanist. Objective Vitals Vital Signs Date Time Temp Pulse Resp B/P (MAP) Pulse Ox O2 Delivery O2 Flow Rate FiO2 11/03/17 08:00 97.1 86 18 137/79 (98) 100 11/03/17 00:00 98.1 90 17 128/80 (96) 97 11/02/17 20:00 98.9 88 16 131/76 (94) 96 11/02/17 16:07 98.0 70 18 112/75 (87) 99 11/02/17 12:05 96.8 80 18 107/60 (76) 99 11/02/17 12:04 96.8 80 18 107/60 (76) 99 I/O 11/02/17 11/02/17 11/02/17 11/03/17 11/03/17 11/03/17 07:00 15:00 23:00 07:00 15:00 23:00 Intake Total 640 ml 100 ml 1200 ml 100 ml Output Total 1300 ml 900 ml 350 ml Balance -660 ml -800 ml 1200 ml -250 ml IV Total 100 ml 100 ml Tube Feeding 240 ml 720 ml Tube Irrigant 480 ml Other 400 ml Output Urine Total 1300 ml 350 ml Stool Total 900 ml Imaging Last Impressions Upper Extremity Ultrasound 10/30/17 0000 Signed Impressions: Service Date/Time: Monday, October 30, 2017 10:48 - CONCLUSION: Negative for DVT Harry Dumas MD FACR Pelvis CT 10/13/17 0000 Signed Impressions: Service Date/Time: Friday, October 13, 2017 12:02 - CONCLUSION: 1. Decubitus ulcer with small abscess in the right posterior perineal region measuring 3.1 x 4.6 cm. There is also a small abscess posterior and to the left of the rectum measuring 3.2 x 2.3 cm. Jann Weber MD Chest X-Ray 10/12/17 0000 Signed Impressions: Service Date/Time: October 12:18 - CONCLUSION: No acute disease. Jann Weber MD Head CT 04/25/17 0000 Signed Impressions: Service Date/Time: Tuesday, April 25, 2017 18:02 - CONCLUSION: 1. Evolving left thalamic hematoma. No new hemorrhage. Adi Quarles MD Abdomen X-Ray 04/12/17 [id number] Signed Impressions: Service Date/Time: Wednesday, April 12, 2017 17:29 - CONCLUSION: Nonobstructive bowel gas pattern. Suresh Zapata MD Neck CTA 04/10/17 0000 Signed Impressions: Service Date/Time: Monday, April 10, 2017 22:28 - CONCLUSION: The internal carotid arteries are normal bilaterally. No significant atherosclerotic disease is noted. Eliud Du MD Head CTA 04/10/17 0000 Signed Impressions: Service Date/Time: Monday, April 10, 2017 22:50 - CONCLUSION: Mild dilatation of the basilar tip without discrete aneurysm. Some narrowing of the left middle cerebral branch after the bifurcation. Prominent left thalamic hemorrhage. Eliud Du MD Objective Remarks GENERAL: Well-developed, well-nourished, in no acute distress. Awake, responds minimally with head nods, tracking with eyes. Expressive aphasic, attempts to speak intermittently. SKIN: Stage IV sacral wound noted, dressing in place. Right upper extremity swelling improved. HEENT: Head is normocephalic without any lesions or masses noted. Facial features are symmetric. Eyes: Conjunctivae were clear. Continue to monitor. CARDIAC: Regular rhythm, regular rate. S1/S2 are heard. 2/6 ejection, no gallops or rubs. LUNGS: Clear to auscultation bilaterally. No wheeze, rhonchi or rales. No use of accessory muscles on inspiration or expiration. ABDOMEN: Soft, nontender. Nondistended. Bowel sounds heard in all 4 quadrants. No organomegaly or masses. Negative guarding. PEG tube noted without any signs of infection, skin c/d/i, dressing intact. No erythema. EXTREMITIES: No edema, pulses are equal bilaterally. No cyanosis or clubbing NEUROLOGY: Patient is moving left upper extremity and able to move left foot. Patient unable to move right upper and lower extremity. Procedures Peg Tube placed 05/08/17 (Dr. De Los Santos) Date of Insertion: Oct 11, 2017 A/P Assessment and Plan Sepsis with leukocytosis, febrile illness, tachycardia, sacral decubitus with perineal abscesses, resolved Continue IV cefepime, IV Levaquin for pseudomonas double coverage Discontinued vancomycin IV/Zosyn IV/fluconazole IV Continue monitor for infection Blood cultures negative to date. Urine culture no growth to date. C. difficile culture was negative Influenza testing is negative Wound culture from sacral wound with Pseudomonas Consulted infectious disease for recommendations for continued fever who recommended continuation of antibiotic treatment with Zosyn for 4 weeks, end date 11/10/17. However patient with acute renal sufficiency, antibiotics changed. CT of the pelvis that showed decubitus ulcer with small abscess in the right posterior perineal region and small abscess posterior and to the left rectum Sacral decubitus with perineal abscess Wound care nurse evaluated patient and made recommendations for wound care and surgical debridement 10/10/17, Gen. surgery was consulted for sacral decubitus. Was notified on 10/11/17 that general surgery does not do sacral decubitus debridement or surgeries 10/11/17. Case was discussed with plastic surgery who are actually not special education classroom aide at this time. Dr. Lai was able to arrange for to evaluate the patient 10/12/17. Plastic surgery, , evaluated the patient who recommended Santyl at this time and possible debridement in the near future 10/13/17. Patient remains septic, CT of the pelvis was performed which did indicate multiple abscess in the right posterior perineal area and posterior and left of the rectum, 10/13/17. Discussed this with plastic surgery Dr. Lai, who indicated that these abscesses are 2 deep and to close to rectal mucosal for plastic surgery. He recommended consulting colorectal surgery 10/13/17. Dr. Franklin was special education classroom aide for colorectal surgery, consult was placed to him for evaluation. Case was discussed with him on multiple occasions. He indicates that since this is connected to a sacral decubitus and since there is no communication with the rectum, this case is not appropriate for colorectal surgery, awaiting consultation report 10/15/17. Discussed with Dr. Abdullahi. He was planning a doing debridement of today, however was unable to obtain consent from family 10/17/17. Spoke with son, consents signed for I&D of sacral wound. Debridement performed, patient tolerated well. Dressing change orders in place. 10/19/17 Santyl to wound bed. EARL Pollack. Continue BID dressing changes. 11/02/17 Ortiz saw patient with recommendations for wound vac. Awaiting printing mechanist. Right upper extremity edema Upper extremity US negative for DVT. Encourage elevation, swelling improving. Hypokalemia Likely secondary to likely wasting from diarrhea Replace and continue monitor Intracranial hemorrhage, hemorrhagic CVA Secondary to uncontrolled hypertension and hypertensive emergency Thalamic ICH with intraventricular extension. Neurosurgery evaluated patient states no surgical intervention Continue PT/OT/ST Consulted as indicated patient is stable to be discharged to rehabilitation facility Case management consulted for inpatient rehabilitation, who indicated patient is homeless, no discharge disposition to inpatient rehabilitation Palliative care was consulted for recommendations. They recommended, see evaluation which has been done. Family wants aggressive measures and placement to be performed Psychiatry indicates that the patient does not have decision-making capacity to participate in her treatment or discharge plan. Dysphagia suspect secondary to intracranial bleed, Post PEG placement 05/09/17. 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 GI Prophylaxis: Prevacid via PEG tube DVT Prophylaxis: Sequential compression devices, chemical prophylaxis contraindicated secondary to intracranial hemorrhage Palliative care: Reconsulted palliative care this time in light of the patient' s worsening condition, family still wishing full aggressive management Discharge Planning Patient is stable to be discharged to rehabilitation facility. Case management assisting. Veena Calvillo Nov 03, 2017 10:07
--- NOTE | 2017-11-03 11:19 | PD.WCN.NOT ---
Wound Consult Communicated with: Son Laureano RN [facility] Recommendation: Please refer to Wound VAC orders. Neg Pressure Wound Therapy Wound Location Wound Location: Coccyx Wound Description Length: 5.6cm Width: 2.9cm Depth: 2.0cm Underminin-12 O'clock 3.1cm 12-6 O'clock Tunneling: none Wound bed appearance: 75% beefy red tissue 15% pink tissue 10% fascia Periwound appearance: Unremarkable Settings Suction: 125 mmHg, Continuous Intensity: Low Other Information: Bridged, Windowpaned, Mushroomed Foam type: Black Number of pieces: 1 Additonal Information Patient was seen by residential mortgage underwriter in [facility] 3rd floor for coccyx wound VAC placement. Patient was repositioned to left side wound cleansed with normal saline pat dry. skin prep applied to periwound stoma paste applied to distal wound to protect skin/seal. 1 piece transparent drape applied to periwound bridged to Right anterior thigh.1 piece black sponge applied to wound base making contact with all undermining areas bridged to R anterior thigh track pad applied Vac set at 125mmhg continuos lite suction no leaks noted.Patient tolerated wound care/Vac placement well. Wound VAC to be changed every MON,WEDS,FRI. Yon Caruso [facility] Nov 03, 2017 11:19
[2017-11-03 12:00] VITALS: BP 146/72; PULSE 64; RESP 18; TEMP 97.3; O2SAT 100
[2017-11-03] MEDS: LEVOFLOXACIN 500 MG PREMIX INJ 100 ML IV SCH (17:14)
[2017-11-03 21:41] VITALS: BP 159/92; PULSE 75; RESP 16; TEMP 97.9; O2SAT 97
[2017-11-04 00:20] VITALS: BP 147/89; PULSE 76; RESP 18; TEMP 98; O2SAT 98
[2017-11-04] MEDS: hydrALAZINE HCL 50 MG TAB PEG SCH ×3 (05:35→17:16)
[2017-11-04] MEDS: FREE WATER G-TUBE SCH ×3 (05:35→17:26)
[2017-11-04] MEDS: NIFEdipine 20 MG CAP PEG SCH ×3 (05:35→17:16)
[2017-11-04 08:00] VITALS: BP 123/75; PULSE 83; RESP 18; TEMP 97.7; O2SAT 93
[2017-11-04] MEDS: HYDROCHLOROTHIAZIDE 25 MG TAB PO SCH (08:54)
[2017-11-04] MEDS: METOPROLOL TARTRATE 100 MG TAB PEG SCH ×2 (08:54→22:10)
[2017-11-04] MEDS: LISINOPRIL 20 MG TAB PEG SCH ×2 (08:54→22:11)
[2017-11-04] MEDS: LANSOPRAZOLE SOLUTAB 30 MG TAB G-TUBE SCH (08:54)
[2017-11-04] MEDS: COLLAGENASE OINT 30 GM TUBE TOPICAL SCH ×2 (09:00→21:00)
[2017-11-04] MEDS: CEFEPIME INJ 1,000 MG in SODIUM CHLORIDE 0.9% INJ 100 ML IV SCH ×2 (10:17→22:10)
[2017-11-04] MEDS: LACTIC ACID (AMMONIUM LACTATE) 12% LOTION 225 GM BTL TOPICAL SCH ×2 (10:18→22:11)
[2017-11-04 12:00] VITALS: BP 130/80; PULSE 88; RESP 18; TEMP 98; O2SAT 95
[2017-11-04] MEDS: hydrALAZINE HCL 25 MG TAB PEG PRN (14:28)
--- NOTE | 2017-11-04 17:14 | HHI.PR ---
Subjective Remarks Follow up hemorrhagic CVA and sacral wound. Patient seen and examined, lying in bed awake. Alert. Denies any pain. No change in clinical condition. No reports of any acute events overnight. Objective Vitals Vital Signs Date Time Temp Pulse Resp B/P (MAP) Pulse Ox O2 Delivery O2 Flow Rate FiO2 11/04/17 12:00 98.0 88 18 130/80 (97) 95 11/04/17 08:00 97.7 83 18 123/75 (91) 93 11/04/17 05:10 11/04/17 00:20 98.0 76 18 147/89 (108) 98 11/03/17 21:41 97.9 75 16 159/92 (114) 97 I/O 11/03/17 11/03/17 11/03/17 11/04/17 11/04/17 11/04/17 07:00 15:00 23:00 07:00 15:00 23:00 Intake Total 100 ml 100 ml 720 ml 180 ml Output Total 350 ml 950 ml 1000 ml Balance -250 ml -950 ml 100 ml -280 ml 180 ml IV Total 100 ml 100 ml Tube Feeding 240 ml Tube Irrigant 480 ml 180 ml Output Urine Total 350 ml 950 ml 1000 ml # Bowel Movements 0 Imaging Last Impressions Upper Extremity Ultrasound 10/30/17 0000 Signed Impressions: Service Date/Time: Monday, October 30, 2017 10:48 - CONCLUSION: Negative for DVT Harry Dumas MD FACR Pelvis CT 10/13/17 0000 Signed Impressions: Service Date/Time: Friday, October 13, 2017 12:02 - CONCLUSION: 1. Decubitus ulcer with small abscess in the right posterior perineal region measuring 3.1 x 4.6 cm. There is also a small abscess posterior and to the left of the rectum measuring 3.2 x 2.3 cm. Jann Weber MD Chest X-Ray 10/12/17 0000 Signed Impressions: Service Date/Time: October 12:18 - CONCLUSION: No acute disease. Jann Weber MD Head CT 04/25/17 0000 Signed Impressions: Service Date/Time: Tuesday, April 25, 2017 18:02 - CONCLUSION: 1. Evolving left thalamic hematoma. No new hemorrhage. Adi Quarles MD Abdomen X-Ray 04/12/17 [id number] Signed Impressions: Service Date/Time: Wednesday, April 12, 2017 17:29 - CONCLUSION: Nonobstructive bowel gas pattern. Suresh Zapata MD Neck CTA 04/10/17 0000 Signed Impressions: Service Date/Time: Monday, April 10, 2017 22:28 - CONCLUSION: The internal carotid arteries are normal bilaterally. No significant atherosclerotic disease is noted. Eliud Du MD Head CTA 04/10/17 0000 Signed Impressions: Service Date/Time: Monday, April 10, 2017 22:50 - CONCLUSION: Mild dilatation of the basilar tip without discrete aneurysm. Some narrowing of the left middle cerebral branch after the bifurcation. Prominent left thalamic hemorrhage. Eliud Du MD Objective Remarks GENERAL: Well-developed, well-nourished, in no acute distress. Awake, responds minimally with head nods, tracking with eyes. Expressive aphasic, attempts to speak intermittently. SKIN: Stage IV sacral wound noted, dressing in place. Right upper extremity swelling improved. HEENT: Head is normocephalic without any lesions or masses noted. Facial features are symmetric. Eyes: Conjunctivae were clear. Continue to monitor. CARDIAC: Regular rhythm, regular rate. S1/S2 are heard. 2/6 ejection, no gallops or rubs. LUNGS: Clear to auscultation bilaterally. No wheeze, rhonchi or rales. No use of accessory muscles on inspiration or expiration. ABDOMEN: Soft, nontender. Nondistended. Bowel sounds heard in all 4 quadrants. No organomegaly or masses. Negative guarding. PEG tube noted without any signs of infection, skin c/d/i, dressing intact. No erythema. EXTREMITIES: No edema, pulses are equal bilaterally. No cyanosis or clubbing NEUROLOGY: Patient is moving left upper extremity and able to move left foot. Patient unable to move right upper and lower extremity. Procedures Peg Tube placed 05/08/17 (Dr. De Los Santos) Urinary Catheter: Yes Assessment to: Continue Date of Insertion: Oct 11, 2017 A/P Assessment and Plan Sepsis with leukocytosis, febrile illness, tachycardia, sacral decubitus with perineal abscesses, resolved Continue IV cefepime, IV Levaquin for pseudomonas double coverage Discontinued vancomycin IV/Zosyn IV/fluconazole IV Continue monitor for infection Blood cultures negative to date. Urine culture no growth to date. C. difficile culture was negative Influenza testing is negative Wound culture from sacral wound with Pseudomonas Consulted infectious disease for recommendations for continued fever who recommended continuation of antibiotic treatment with Zosyn for 4 weeks, end date 11/10/17. However patient with acute renal sufficiency, antibiotics changed. CT of the pelvis that showed decubitus ulcer with small abscess in the right posterior perineal region and small abscess posterior and to the left rectum Sacral decubitus with perineal abscess Wound care nurse evaluated patient and made recommendations for wound care and surgical debridement 10/10/17, Gen. surgery was consulted for sacral decubitus. Was notified on 10/11/17 that general surgery does not do sacral decubitus debridement or surgeries 10/11/17. Case was discussed with plastic surgery who are actually not fabrication lead at this time. Dr. Lai was able to arrange for to evaluate the patient 10/12/17. Plastic surgery, , evaluated the patient who recommended Santyl at this time and possible debridement in the near future 10/13/17. Patient remains septic, CT of the pelvis was performed which did indicate multiple abscess in the right posterior perineal area and posterior and left of the rectum, 10/13/17. Discussed this with plastic surgery Dr. Lai, who indicated that these abscesses are 2 deep and to close to rectal mucosal for plastic surgery. He recommended consulting colorectal surgery 10/13/17. Dr. Franklin was fabrication lead for colorectal surgery, consult was placed to him for evaluation. Case was discussed with him on multiple occasions. He indicates that since this is connected to a sacral decubitus and since there is no communication with the rectum, this case is not appropriate for colorectal surgery, awaiting consultation report 10/15/17. Discussed with Dr. Abdullahi. He was planning a doing debridement of today, however was unable to obtain consent from family 10/17/17. Spoke with son, consents signed for I&D of sacral wound. Debridement performed, patient tolerated well. Dressing change orders in place. 10/19/17 Santyl to wound bed. EARL Pollack. Continue BID dressing changes. 11/02/17 Ortiz saw patient with recommendations for wound vac. Awaiting soaker. 11/03/17 wound vac placed by RN. Right upper extremity edema, improved. Upper extremity US negative for DVT. Encourage elevation, swelling improving. Hypokalemia, improved. Likely secondary to likely wasting from diarrhea Replace and continue monitor Intracranial hemorrhage, hemorrhagic CVA Secondary to uncontrolled hypertension and hypertensive emergency Thalamic ICH with intraventricular extension. Neurosurgery evaluated patient states no surgical intervention Continue PT/OT/ST Consulted as indicated patient is stable to be discharged to rehabilitation facility Case management consulted for inpatient rehabilitation, who indicated patient is homeless, no discharge disposition to inpatient rehabilitation Palliative care was consulted for recommendations. They recommended, see evaluation which has been done. Family wants aggressive measures and placement to be performed Psychiatry indicates that the patient does not have decision-making capacity to participate in her treatment or discharge plan. Dysphagia suspect secondary to intracranial bleed, Post PEG placement 05/09/17. 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 GI Prophylaxis: Prevacid via PEG tube DVT Prophylaxis: Sequential compression devices, chemical prophylaxis contraindicated secondary to intracranial hemorrhage Palliative care: Reconsulted palliative care this time in light of the patient' s worsening condition, family still wishing full aggressive management Discharge Planning Patient is stable to be discharged to rehabilitation facility. Case management assisting. Veena Calvillo Nov 04, 2017 17:14
[2017-11-04] MEDS: LEVOFLOXACIN 500 MG PREMIX INJ 100 ML IV SCH (17:16)
[2017-11-04 21:05] VITALS: BP 110/71; PULSE 85; RESP 16; TEMP 99; O2SAT 96
[2017-11-05 00:46] VITALS: BP 132/71; PULSE 66; RESP 18; TEMP 98.9; O2SAT 97
[2017-11-05] MEDS: hydrALAZINE HCL 50 MG TAB PEG SCH ×4 (01:08→17:54)
[2017-11-05] MEDS: NIFEdipine 20 MG CAP PEG SCH ×4 (01:08→17:54)
[2017-11-05] MEDS: FREE WATER G-TUBE SCH ×4 (05:57→17:53)
[2017-11-05 08:00] VITALS: BP 120/85; PULSE 95; RESP 12; TEMP 96; O2SAT 99
[2017-11-05] MEDS: CEFEPIME INJ 1,000 MG in SODIUM CHLORIDE 0.9% INJ 100 ML IV SCH ×2 (08:46→20:24)
[2017-11-05] MEDS: LANSOPRAZOLE SOLUTAB 30 MG TAB G-TUBE SCH (08:46)
[2017-11-05] MEDS: LACTIC ACID (AMMONIUM LACTATE) 12% LOTION 225 GM BTL TOPICAL SCH ×2 (08:48→21:00)
[2017-11-05] MEDS: LISINOPRIL 20 MG TAB PEG SCH ×2 (08:48→20:25)
[2017-11-05] MEDS: HYDROCHLOROTHIAZIDE 25 MG TAB PO SCH (08:48)
[2017-11-05] MEDS: METOPROLOL TARTRATE 100 MG TAB PEG SCH ×2 (08:48→20:25)
[2017-11-05] MEDS: COLLAGENASE OINT 30 GM TUBE TOPICAL SCH ×2 (08:49→21:00)
--- NOTE | 2017-11-05 11:21 | HHI.PR ---
Subjective Remarks Follow up hemorrhagic CVA and sacral wound. Patient seen and examined lying in bed comfortably in NAD. No change in clinical condition. Wound vac continued, tolerating well. VSS. Afebrile. Objective Vitals Vital Signs Date Time Temp Pulse Resp B/P (MAP) Pulse Ox O2 Delivery O2 Flow Rate FiO2 11/05/17 08:00 96.0 95 12 120/85 (97) 99 11/05/17 04:32 11/05/17 00:46 98.9 66 18 132/71 (91) 97 11/04/17 21:05 99.0 85 16 110/71 (84) 96 11/04/17 12:00 98.0 88 18 130/80 (97) 95 I/O 11/04/17 11/04/17 11/04/17 11/05/17 11/05/17 11/05/17 06:59 14:59 22:59 06:59 14:59 22:59 Intake Total 720 ml 180 ml 250 ml 100 ml Output Total 1000 ml 1550 ml 1000 ml Balance -280 ml 180 ml -1300 ml -1000 ml 100 ml IV Total 100 ml Tube Feeding 240 ml 250 ml Tube Irrigant 480 ml 180 ml Output Urine Total 1000 ml 1200 ml 1000 ml Stool Total 350 ml # Bowel Movements 0 Imaging Last Impressions Upper Extremity Ultrasound 10/30/17 0000 Signed Impressions: Service Date/Time: Monday, October 30, 2017 10:48 - CONCLUSION: Negative for DVT Harry Dumas MD FACR Pelvis CT 10/13/17 0000 Signed Impressions: Service Date/Time: Friday, October 13, 2017 12:02 - CONCLUSION: 1. Decubitus ulcer with small abscess in the right posterior perineal region measuring 3.1 x 4.6 cm. There is also a small abscess posterior and to the left of the rectum measuring 3.2 x 2.3 cm. Jann Weber MD Chest X-Ray 10/12/17 0000 Signed Impressions: Service Date/Time: October 12:18 - CONCLUSION: No acute disease. Jann Weber MD Head CT 04/25/17 0000 Signed Impressions: Service Date/Time: Tuesday, April 25, 2017 18:02 - CONCLUSION: 1. Evolving left thalamic hematoma. No new hemorrhage. Adi Quarles MD Abdomen X-Ray 04/12/17 1538 Signed Impressions: Service Date/Time: Wednesday, April 12, 2017 17:29 - CONCLUSION: Nonobstructive bowel gas pattern. Suresh Zapata MD Neck CTA 04/10/17 0000 Signed Impressions: Service Date/Time: Monday, April 10, 2017 22:28 - CONCLUSION: The internal carotid arteries are normal bilaterally. No significant atherosclerotic disease is noted. Eliud Du MD Head CTA 04/10/17 0000 Signed Impressions: Service Date/Time: Monday, April 10, 2017 22:50 - CONCLUSION: Mild dilatation of the basilar tip without discrete aneurysm. Some narrowing of the left middle cerebral branch after the bifurcation. Prominent left thalamic hemorrhage. Eliud Du MD Objective Remarks GENERAL: Well-developed, well-nourished, in no acute distress. Awake, responds minimally with head nods, tracking with eyes. Expressive aphasic, attempts to speak intermittently. SKIN: Stage IV sacral wound noted, dressing in place. Right upper extremity swelling improved. HEENT: Head is normocephalic without any lesions or masses noted. Facial features are symmetric. Eyes: Conjunctivae were clear. Continue to monitor. CARDIAC: Regular rhythm, regular rate. S1/S2 are heard. 2/6 ejection, no gallops or rubs. LUNGS: Clear to auscultation bilaterally. No wheeze, rhonchi or rales. No use of accessory muscles on inspiration or expiration. ABDOMEN: Soft, nontender. Nondistended. Bowel sounds heard in all 4 quadrants. No organomegaly or masses. Negative guarding. PEG tube noted without any signs of infection, skin c/d/i, dressing intact. No erythema. EXTREMITIES: No edema, pulses are equal bilaterally. No cyanosis or clubbing NEUROLOGY: Patient is moving left upper extremity and able to move left foot. Patient unable to move right upper and lower extremity. Procedures Peg Tube placed 05/08/17 (Dr. De Los Santos) Urinary Catheter: Yes Assessment to: Continue Cruz insert reason: Stage III/IV Press Ulcer Date of Insertion: Oct 11, 2017 A/P Assessment and Plan Sepsis with leukocytosis, febrile illness, tachycardia, sacral decubitus with perineal abscesses, resolved Continue IV cefepime, IV Levaquin for pseudomonas double coverage Discontinued vancomycin IV/Zosyn IV/fluconazole IV Continue monitor for infection Blood cultures negative to date. Urine culture no growth to date. C. difficile culture was negative Influenza testing is negative Wound culture from sacral wound with Pseudomonas Consulted infectious disease for recommendations for continued fever who recommended continuation of antibiotic treatment with Zosyn for 4 weeks, end date 11/10/17. However patient with acute renal sufficiency, antibiotics changed. CT of the pelvis that showed decubitus ulcer with small abscess in the right posterior perineal region and small abscess posterior and to the left rectum Sacral decubitus with perineal abscess Wound care nurse evaluated patient and made recommendations for wound care and surgical debridement 10/10/17, Gen. surgery was consulted for sacral decubitus. Was notified on 10/11/17 that general surgery does not do sacral decubitus debridement or surgeries 10/11/17. Case was discussed with plastic surgery who are actually not toll transmission worker at this time. Dr. Lai was able to arrange for to evaluate the patient 10/12/17. Plastic surgery, , evaluated the patient who recommended Santyl at this time and possible debridement in the near future 10/13/17. Patient remains septic, CT of the pelvis was performed which did indicate multiple abscess in the right posterior perineal area and posterior and left of the rectum, 10/13/17. Discussed this with plastic surgery Dr. Lai, who indicated that these abscesses are 2 deep and to close to rectal mucosal for plastic surgery. He recommended consulting colorectal surgery 10/13/17. Dr. Franklin was toll transmission worker for colorectal surgery, consult was placed to him for evaluation. Case was discussed with him on multiple occasions. He indicates that since this is connected to a sacral decubitus and since there is no communication with the rectum, this case is not appropriate for colorectal surgery, awaiting consultation report 10/15/17. Discussed with Dr. Abdullahi. He was planning a doing debridement of today, however was unable to obtain consent from family 10/17/17. Spoke with son, consents signed for I&D of sacral wound. Debridement performed, patient tolerated well. Dressing change orders in place. 10/19/17 Santyl to wound bed. EARL Pollack. Continue BID dressing changes. 11/02/17 Ortiz saw patient with recommendations for wound vac. Awaiting structures technician. 11/03/17 wound vac placed by RN. Right upper extremity edema, improved. Upper extremity US negative for DVT. Encourage elevation, swelling improving. Hypokalemia, improved. Likely secondary to likely wasting from diarrhea Replace and continue monitor Intracranial hemorrhage, hemorrhagic CVA Secondary to uncontrolled hypertension and hypertensive emergency Thalamic ICH with intraventricular extension. Neurosurgery evaluated patient states no surgical intervention Continue PT/OT/ST Consulted as indicated patient is stable to be discharged to rehabilitation facility Case management consulted for inpatient rehabilitation, who indicated patient is homeless, no discharge disposition to inpatient rehabilitation Palliative care was consulted for recommendations. They recommended, see evaluation which has been done. Family wants aggressive measures and placement to be performed Psychiatry indicates that the patient does not have decision-making capacity to participate in her treatment or discharge plan. Dysphagia suspect secondary to intracranial bleed, Post PEG placement 05/09/17. 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 GI Prophylaxis: Prevacid via PEG tube DVT Prophylaxis: Sequential compression devices, chemical prophylaxis contraindicated secondary to intracranial hemorrhage Palliative care: Reconsulted palliative care this time in light of the patient' s worsening condition, family still wishing full aggressive management Discharge Planning Patient is stable to be discharged to rehabilitation facility. Case management assisting. Veena Calvillo Nov 05, 2017 11:21
[2017-11-05 12:00] VITALS: BP 119/86; PULSE 70; RESP 12; TEMP 96.9; O2SAT 97
[2017-11-05 16:00] VITALS: BP 123/75; PULSE 70; RESP 14; TEMP 96.9; O2SAT 98
[2017-11-05] MEDS: LEVOFLOXACIN 500 MG PREMIX INJ 100 ML IV SCH (17:54)
[2017-11-05 19:46] VITALS: BP 114/58; PULSE 73; RESP 16; TEMP 98; O2SAT 97
[2017-11-06] MEDS: FREE WATER G-TUBE SCH ×4 (00:16→17:47)
[2017-11-06] MEDS: hydrALAZINE HCL 50 MG TAB PEG SCH ×4 (00:16→17:47)
[2017-11-06] MEDS: NIFEdipine 20 MG CAP PEG SCH ×4 (00:16→17:47)
[2017-11-06 01:17] VITALS: BP 120/71; PULSE 77; RESP 20; TEMP 97.2; O2SAT 100
[2017-11-06] MEDS: CEFEPIME INJ 1,000 MG in SODIUM CHLORIDE 0.9% INJ 100 ML IV SCH ×2 (07:46→23:02)
[2017-11-06 07:50] VITALS: BP 140/52; PULSE 106; RESP 20; TEMP 97.6; O2SAT 100
[2017-11-06] MEDS: COLLAGENASE OINT 30 GM TUBE TOPICAL SCH ×2 (08:40→21:00)
[2017-11-06] MEDS: METOPROLOL TARTRATE 100 MG TAB PEG SCH ×2 (08:47→23:02)
[2017-11-06] MEDS: LISINOPRIL 20 MG TAB PEG SCH ×2 (08:47→23:02)
[2017-11-06] MEDS: LACTIC ACID (AMMONIUM LACTATE) 12% LOTION 225 GM BTL TOPICAL SCH ×2 (08:48→23:02)
[2017-11-06] MEDS: LANSOPRAZOLE SOLUTAB 30 MG TAB G-TUBE SCH (08:48)
[2017-11-06] MEDS: HYDROCHLOROTHIAZIDE 25 MG TAB PO SCH (08:48)
--- NOTE | 2017-11-06 09:12 | HHI.PR ---
Subjective Remarks Follow up hemorrhagic CVA and sacral wound. Patient seen and examined, RN at bedside. No change in clinical condition. No reports of any acute events overnight. Continued wound vac, tolerating well. Afebrile. VSS. Objective Vitals Vital Signs Date Time Temp Pulse Resp B/P (MAP) Pulse Ox O2 Delivery O2 Flow Rate FiO2 11/06/17 05:10 11/06/17 01:17 97.2 77 20 120/71 (87) 100 11/05/17 19:46 98.0 73 16 114/58 (76) 97 11/05/17 16:00 96.9 70 14 123/75 (91) 98 11/05/17 12:00 96.9 70 12 119/86 (97) 97 I/O 11/05/17 11/05/17 11/05/17 11/06/17 11/06/17 11/06/17 07:00 15:00 23:00 07:00 15:00 23:00 Intake Total 100 ml 1460 ml 940 ml 520 ml Output Total 1000 ml 1200 ml 300 ml Balance -1000 ml -1100 ml 1160 ml 940 ml 520 ml IV Total 100 ml 200 ml 100 ml Tube Feeding 720 ml 240 ml 240 ml Other 540 ml 700 ml 180 ml Output Urine Total 1000 ml 1200 ml Stool Total 300 ml Imaging Last Impressions Upper Extremity Ultrasound 10/30/17 0000 Signed Impressions: Service Date/Time: Monday, October 30, 2017 10:48 - CONCLUSION: Negative for DVT Harry Dumas MD FACR Pelvis CT 10/13/17 0000 Signed Impressions: Service Date/Time: Friday, October 13, 2017 12:02 - CONCLUSION: 1. Decubitus ulcer with small abscess in the right posterior perineal region measuring 3.1 x 4.6 cm. There is also a small abscess posterior and to the left of the rectum measuring 3.2 x 2.3 cm. Jann Weber MD Chest X-Ray 10/12/17 0000 Signed Impressions: Service Date/Time: October 12:18 - CONCLUSION: No acute disease. Jann Weber MD Head CT 04/25/17 0000 Signed Impressions: Service Date/Time: Tuesday, April 25, 2017 18:02 - CONCLUSION: 1. Evolving left thalamic hematoma. No new hemorrhage. Adi Quarles MD Abdomen X-Ray 04/12/17 1538 Signed Impressions: Service Date/Time: Wednesday, April 12, 2017 17:29 - CONCLUSION: Nonobstructive bowel gas pattern. Suresh Zapata MD Neck CTA 04/10/17 0000 Signed Impressions: Service Date/Time: Monday, April 10, 2017 22:28 - CONCLUSION: The internal carotid arteries are normal bilaterally. No significant atherosclerotic disease is noted. Eliud Du MD Head CTA 04/10/17 0000 Signed Impressions: Service Date/Time: Monday, April 10, 2017 22:50 - CONCLUSION: Mild dilatation of the basilar tip without discrete aneurysm. Some narrowing of the left middle cerebral branch after the bifurcation. Prominent left thalamic hemorrhage. Eliud Du MD Objective Remarks GENERAL: Well-developed, well-nourished, in no acute distress. Awake, responds minimally with head nods, tracking with eyes. Expressive aphasic, attempts to speak intermittently. SKIN: Stage IV sacral wound noted, wound vac in place. Right upper extremity swelling improved. Now left arm with swelling. HEENT: Head is normocephalic without any lesions or masses noted. Facial features are symmetric. Eyes: Conjunctivae were clear. Continue to monitor. CARDIAC: Regular rhythm, regular rate. S1/S2 are heard. 2/6 ejection, no gallops or rubs. LUNGS: Clear to auscultation bilaterally. No wheeze, rhonchi or rales. No use of accessory muscles on inspiration or expiration. ABDOMEN: Soft, nontender. Nondistended. Bowel sounds heard in all 4 quadrants. No organomegaly or masses. Negative guarding. PEG tube noted without any signs of infection, skin c/d/i, dressing intact. No erythema. EXTREMITIES: No edema, pulses are equal bilaterally. No cyanosis or clubbing NEUROLOGY: Patient is moving left upper extremity and able to move left foot. Patient unable to move right upper and lower extremity. Procedures Peg Tube placed 05/08/17 (Dr. De Los Santos) Urinary Catheter: Yes Assessment to: Continue Cruz insert reason: Stage III/IV Press Ulcer Date of Insertion: Oct 11, 2017 A/P Assessment and Plan Sepsis with leukocytosis, febrile illness, tachycardia, sacral decubitus with perineal abscesses, resolved Continue IV cefepime, IV Levaquin for pseudomonas double coverage Discontinued vancomycin IV/Zosyn IV/fluconazole IV Continue monitor for infection Blood cultures negative to date. Urine culture no growth to date. C. difficile culture was negative Influenza testing is negative Wound culture from sacral wound with Pseudomonas Consulted infectious disease for recommendations for continued fever who recommended continuation of antibiotic treatment with Zosyn for 4 weeks, end date 11/10/17. However patient with acute renal sufficiency, antibiotics changed. CT of the pelvis that showed decubitus ulcer with small abscess in the right posterior perineal region and small abscess posterior and to the left rectum Sacral decubitus with perineal abscess Wound care nurse evaluated patient and made recommendations for wound care and surgical debridement 10/10/17, Gen. surgery was consulted for sacral decubitus. Was notified on 10/11/17 that general surgery does not do sacral decubitus debridement or surgeries 10/11/17. Case was discussed with plastic surgery who are actually not seasonal greenery bundler at this time. Dr. Lai was able to arrange for to evaluate the patient 10/12/17. Plastic surgery, , evaluated the patient who recommended Santyl at this time and possible debridement in the near future 10/13/17. Patient remains septic, CT of the pelvis was performed which did indicate multiple abscess in the right posterior perineal area and posterior and left of the rectum, 10/13/17. Discussed this with plastic surgery Dr. Lai, who indicated that these abscesses are 2 deep and to close to rectal mucosal for plastic surgery. He recommended consulting colorectal surgery 10/13/17. Dr. Franklin was seasonal greenery bundler for colorectal surgery, consult was placed to him for evaluation. Case was discussed with him on multiple occasions. He indicates that since this is connected to a sacral decubitus and since there is no communication with the rectum, this case is not appropriate for colorectal surgery, awaiting consultation report 10/15/17. Discussed with Dr. Abdullahi. He was planning a doing debridement of today, however was unable to obtain consent from family 10/17/17. Spoke with son, consents signed for I&D of sacral wound. Debridement performed, patient tolerated well. Dressing change orders in place. 10/19/17 Santyl to wound bed. EARL Pollack. Continue BID dressing changes. 11/02/17 Ortiz saw patient with recommendations for wound vac. Awaiting automotive glass mechanic. 11/03/17 wound vac placed by automotive glass mechanic. Left upper extremity edema Will obtain left upper extremity US to rule out DVT. Follow. Encourage elevation. Right upper extremity edema, improved. Upper extremity US negative for DVT. Encourage elevation, swelling improving. Hypokalemia, improved. Likely secondary to likely wasting from diarrhea Replace and continue monitor Intracranial hemorrhage, hemorrhagic CVA Secondary to uncontrolled hypertension and hypertensive emergency Thalamic ICH with intraventricular extension. Neurosurgery evaluated patient states no surgical intervention Continue PT/OT/ST Consulted as indicated patient is stable to be discharged to rehabilitation facility Case management consulted for inpatient rehabilitation, who indicated patient is homeless, no discharge disposition to inpatient rehabilitation Palliative care was consulted for recommendations. They recommended, see evaluation which has been done. Family wants aggressive measures and placement to be performed Psychiatry indicates that the patient does not have decision-making capacity to participate in her treatment or discharge plan. Dysphagia suspect secondary to intracranial bleed, Post PEG placement 05/09/17. 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 GI Prophylaxis: Prevacid via PEG tube DVT Prophylaxis: Sequential compression devices, chemical prophylaxis contraindicated secondary to intracranial hemorrhage Palliative care: Reconsulted palliative care this time in light of the patient' s worsening condition, family still wishing full aggressive management Discharge Planning Patient is stable to be discharged to rehabilitation facility. Case management assisting. Veena Calvillo Nov 06, 2017 09:12
[2017-11-06 13:09] VITALS: BP 136/83; PULSE 81; RESP 18
--- NOTE | 2017-11-06 15:29 | RADRPT ---
EXAM DATE/TIME: 11/06/2017 14:17 [facility] COMPARISON: No previous studies available for comparison. INDICATIONS : Left arm swelling. MEDICAL HISTORY : Left intracranial hemorrhage. Right hemiparesis. SURGICAL HISTORY : None. ENCOUNTER: Initial ACUITY: 1 day PAIN SCORE: 10/10 LOCATION: Left arm. FINDINGS: There is spontaneous flow documented in the brachial, basilic, cephalic, axillary, and subclavian vei ns. The vessels are compressible and augmentation response is documented. No filling defects are se en. The flow is phasic with respiration. Direction of flow in the jugular vein is caudal. CONCLUSION: Normal examination. Kelby Perez MD on November 06, 2017 at 15:26 Board Certified Radiologist. This report was verified electronically.
[2017-11-06 17:44] VITALS: BP 139/83; PULSE 83; RESP 18; TEMP 98.7; O2SAT 100
[2017-11-06] MEDS: LEVOFLOXACIN 500 MG PREMIX INJ 100 ML IV SCH (18:48)
[2017-11-06 20:00] VITALS: BP 138/88; PULSE 90; RESP 18; TEMP 98.9; O2SAT 96
[2017-11-07] MEDS: hydrALAZINE HCL 50 MG TAB PEG SCH ×4 (01:02→17:27)
[2017-11-07] MEDS: NIFEdipine 20 MG CAP PEG SCH ×4 (01:02→17:27)
[2017-11-07 04:00] VITALS: BP 132/86; PULSE 84; RESP 18; TEMP 97.8; O2SAT 95
[2017-11-07] MEDS: FREE WATER G-TUBE SCH ×4 (06:00→17:27)
[2017-11-07 08:00] VITALS: BP 143/81; PULSE 91; RESP 18; TEMP 98; O2SAT 95
--- NOTE | 2017-11-07 08:45 | HHI.PR ---
Subjective Remarks Patient seen and examined today for follow-up on sacral decubitus wound, hemorrhagic CVA. Patient continues to remain clinically stable. No acute events overnight. Afebrile, vital signs are stable. Objective Vitals Vital Signs Date Time Temp Pulse Resp B/P (MAP) Pulse Ox O2 Delivery O2 Flow Rate FiO2 11/07/17 04:00 97.8 84 18 132/86 (101) 95 11/06/17 20:00 98.9 90 18 138/88 (105) 96 11/06/17 17:44 98.7 83 18 139/83 (101) 100 11/06/17 13:09 81 18 136/83 (100) I/O 11/06/17 11/06/17 11/06/17 11/07/17 11/07/17 11/07/17 07:00 15:00 23:00 07:00 15:00 23:00 Intake Total 940 ml 970 ml 450 ml Output Total 850 ml 350 ml Balance 940 ml 970 ml -400 ml -350 ml IV Total 100 ml Tube Feeding 240 ml 480 ml 240 ml Other 700 ml 390 ml 210 ml Output Urine Total 650 ml 350 ml Stool Total 200 ml # Bowel Movements 1 Objective Remarks GENERAL: Well-developed, well-nourished, in no acute distress. Awake, responds minimally with head nods. Trying to speak HEENT: Head is normocephalic without any lesions or masses noted. Facial features are symmetric. Eyes: Conjunctivae were clear. CARDIAC: Regular rhythm, regular rate. S1/S2 are heard. 2/6 ejection, no gallops or rubs. LUNGS: Clear to auscultation bilaterally. No wheeze, rhonchi or rales. No use of accessory muscles on inspiration or expiration. ABDOMEN: Soft, nontender. Nondistended. Bowel sounds heard in all 4 quadrants. No organomegaly or masses. Negative rebound, negative guarding, PEG tube noted without any signs of infection EXTREMITIES: No edema, pulses are equal bilaterally. No cyanosis or clubbing NEUROLOGY: Patient is moving left upper extremity and able to move left foot. Patient unable to move right upper and lower extremity. SKIN: Sacral wound with wound VAC at this time Procedures Peg Tube placed 05/08/17 (Dr. De Los Santos) Urinary Catheter: Yes Assessment to: Continue Cruz insert reason: Stage III/IV Press Ulcer Date of Insertion: Oct 11, 2017 Vascular Central Line Catheter: No A/P Assessment and Plan Sacral decubitus with perineal abscess, this will need incision, drainage and debridement Wound care nurse evaluated patient and made recommendations for wound care and surgical debridement 10/10/17, Gen. surgery was consulted for sacral decubitus. Was notified on 10/11/17 that general surgery does not do sacral decubitus debridement or surgeries 10/11/17. Case was discussed with plastic surgery who are actually not chronometer tester at this time. Dr. Lai was able to arrange for to evaluate the patient 10/12/17. Plastic surgery, , evaluated the patient who recommended Santyl at this time and possible debridement in the near future 10/13/17. Patient remains septic, CT of the pelvis was performed which did indicate multiple abscess in the right posterior perineal area and posterior and left of the rectum, 10/13/17. Discussed this with plastic surgery Dr. Lai, who indicated that these abscesses are 2 deep and to close to rectal mucosal for plastic surgery. He recommended consulting colorectal surgery 10/13/17. Dr. Franklin was chronometer tester for colorectal surgery, consult was placed to him for evaluation. Case was discussed with him on multiple occasions. He indicates that since this is connected to a sacral decubitus and since there is no communication with the rectum, this case is not appropriate for colorectal surgery, awaiting consultation report 10/15/17. Discussed with Dr. Abdullahi. He was planning a doing debridement of today, however was unable to obtain consent from family 10/17/17. Spoke with son, consents signed for I&D of sacral wound. Debridement performed, patient tolerated well. Dressing change orders in place. 10/19/17 Santyl to wound bed. EARL Pollack. Continue BID dressing changes. 11/02/17 Ortiz saw patient with recommendations for wound vac. Awaiting teacher visually impaired. 11/03/17 wound vac placed by teacher visually impaired. 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 Neurosurgery evaluated patient states no surgical intervention Continue PT/OT/ST Consulted as indicated patient is stable to be discharged to rehabilitation facility Case management consulted for inpatient rehabilitation, who indicated patient is homeless, no discharge disposition to inpatient rehabilitation Palliative care was consulted for recommendations. They recommended, see evaluation which has been done. Family wants aggressive measures and placement to be performed Psychiatry indicates that the patient does not have decision-making capacity to participate in her treatment or discharge plan. Sepsis with leukocytosis, febrile illness, tachycardia, sacral decubitus with perineal abscesses, resolved Continue IV cefepime, IV Levaquin for pseudomonas double coverage Discontinued vancomycin IV/Zosyn IV/fluconazole IV, Continue monitor for infection Blood cultures negative for 5 days Urine culture no growth for 48 hours C. difficile culture was negative Influenza testing is negative wound culture from sacral wound with Pseudomonas Consulted infectious disease for recommendations for continued fever who recommended continuation of antibiotic treatment with Zosyn for 4 weeks, end date 11/10/17. However patient with acute renal sufficiency, antibiotics changed CT of the pelvis that showed decubitus ulcer with small abscess in the right posterior perineal region and small abscess posterior and to the left rectum Dysphagia suspect secondary to intracranial bleed, Post PEG placement 05/09/17. 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 GI Prophylaxis: Prevacid via PEG tube DVT Prophylaxis: Sequential compression devices, chemical prophylaxis contraindicated secondary to intracranial hemorrhage Palliative care: Reconsulted palliative care this time in light of the patient' s worsening condition, family still wishing full aggressive management Records were reviewed. No change in current treatment plan. Awaiting case management for discharge planning Discharge Planning Case management for discharge planning Kayden Kelley Nov 07, 2017 08:44
[2017-11-07] MEDS: COLLAGENASE OINT 30 GM TUBE TOPICAL SCH ×2 (09:00→21:00)
[2017-11-07] MEDS: CEFEPIME INJ 1,000 MG in SODIUM CHLORIDE 0.9% INJ 100 ML IV SCH ×2 (10:02→21:20)
[2017-11-07] MEDS: HYDROCHLOROTHIAZIDE 25 MG TAB PO SCH (10:02)
[2017-11-07] MEDS: METOPROLOL TARTRATE 100 MG TAB PEG SCH ×2 (10:03→20:56)
[2017-11-07] MEDS: LANSOPRAZOLE SOLUTAB 30 MG TAB G-TUBE SCH (10:03)
[2017-11-07] MEDS: LACTIC ACID (AMMONIUM LACTATE) 12% LOTION 225 GM BTL TOPICAL SCH (10:03)
[2017-11-07] MEDS: LISINOPRIL 20 MG TAB PEG SCH ×2 (10:03→20:57)
[2017-11-07] MEDS: REMOVE OLD CATAPRES (CLONIDINE) PATCH T-DERMAL SCH (13:31)
[2017-11-07] MEDS: cloNIDine HCL 0.3 MG/24 HR PATCH T-DERMAL SCH (13:31)
[2017-11-07] MEDS: LEVOFLOXACIN 500 MG PREMIX INJ 100 ML IV SCH (17:27)
[2017-11-07 20:00] VITALS: BP 136/87; PULSE 88; RESP 16; TEMP 98.6; O2SAT 98
[2017-11-08] VITALS: BP 117/86; PULSE 85; RESP 16; TEMP 98.5; O2SAT 97
[2017-11-08] MEDS: NIFEdipine 20 MG CAP PEG SCH ×4 (00:40→17:52)
[2017-11-08] MEDS: hydrALAZINE HCL 50 MG TAB PEG SCH ×4 (00:40→17:52)
[2017-11-08] MEDS: LACTIC ACID (AMMONIUM LACTATE) 12% LOTION 225 GM BTL TOPICAL SCH ×3 (00:41→20:31)
[2017-11-08] MEDS: FREE WATER G-TUBE SCH ×4 (00:41→17:50)
[2017-11-08 05:41] LABS: AUTOMATED NEUTROPHIL # 2.1 TH/MM3 (1.8-7.7); EOSINOPHIL # 0.3 TH/MM3 (0-0.4); EOSINOPHIL % 6.1 % (0.0-4.0); HEMATOCRIT 31.5 % (35.0-46.0); LYMPH % 35.8 % (9.0-44.0); LYMPHOCYTE # 1.8 TH/MM3 (1.0-4.8); MEAN CELL VOLUME 85.3 FL (80.0-100.0); MEAN CORPUSCULAR HEMOGLOBIN 27.2 PG (27.0-34.0); MEAN CORPUSCULAR HGB CONC 31.8 % (32.0-36.0); MEAN PLATELET VOLUME 10.1 FL (7.0-11.0); MONO % 14.9 % (0.0-8.0); MONOCYTE # 0.7 TH/MM3 (0-0.9); NEUT % 42.2 % (16.0-70.0); PLATELET COUNT 288 TH/MM3 (150-450); RED BLOOD COUNT 3.69 MIL/MM3 (4.00-5.30); RED CELL DISTRIBUTION WIDTH 15.4 % (11.6-17.2); WHITE BLOOD COUNT 4.9 TH/MM3 (4.0-11.0)
[2017-11-08 05:55] LABS: CALCIUM 9.4 MG/DL (8.5-10.1)
[2017-11-08 05:56] LABS: BICARBONATE 28.5 MEQ/L (21.0-32.0); MAGNESIUM 2.1 MG/DL (1.5-2.5)
[2017-11-08 05:59] LABS: CREATININE 0.4 MG/DL (0.50-1.00)
[2017-11-08 07:50] VITALS: BP 116/70; PULSE 96; RESP 20; TEMP 97.7; O2SAT 100
[2017-11-08] MEDS: LANSOPRAZOLE SOLUTAB 30 MG TAB G-TUBE SCH (08:34)
[2017-11-08] MEDS: HYDROCHLOROTHIAZIDE 25 MG TAB PO SCH (08:34)
[2017-11-08] MEDS: METOPROLOL TARTRATE 100 MG TAB PEG SCH ×2 (08:35→20:30)
[2017-11-08] MEDS: LISINOPRIL 20 MG TAB PEG SCH ×2 (08:35→20:30)
[2017-11-08] MEDS: COLLAGENASE OINT 30 GM TUBE TOPICAL SCH ×2 (08:36→20:32)
[2017-11-08] MEDS: CEFEPIME INJ 1,000 MG in SODIUM CHLORIDE 0.9% INJ 100 ML IV SCH ×2 (08:38→20:30)
--- NOTE | 2017-11-08 08:56 | HHI.PR ---
Subjective Remarks Patient seen and examined today for follow-up on sacral decubitus, hemorrhagic CVA. Patient was getting cleaned up when seen the patient today. Patient remains afebrile, vital signs are stable Objective Vitals Vital Signs Date Time Temp Pulse Resp B/P (MAP) Pulse Ox O2 Delivery O2 Flow Rate FiO2 11/08/17 00:00 98.5 85 16 117/86 (96) 97 11/07/17 20:00 98.6 88 16 136/87 (103) 98 I/O 11/07/17 11/07/17 11/07/17 11/08/17 11/08/17 11/08/17 07:00 15:00 23:00 07:00 15:00 23:00 Intake Total 100 ml Output Total 350 ml 250 ml Balance -350 ml -150 ml IV Total 100 ml Output Urine Total 350 ml 250 ml # Voids 2 # Bowel Movements 1 Result Diagram: 11/08/17 0500 11/08/17 0500 Objective Remarks GENERAL: Well-developed, well-nourished, in no acute distress. Awake, responds minimally with head nods. Trying to speak HEENT: Head is normocephalic without any lesions or masses noted. Facial features are symmetric. Eyes: Conjunctivae were clear. CARDIAC: Regular rhythm, regular rate. S1/S2 are heard. 2/6 ejection, no gallops or rubs. LUNGS: Clear to auscultation bilaterally. No wheeze, rhonchi or rales. No use of accessory muscles on inspiration or expiration. ABDOMEN: Soft, nontender. Nondistended. Bowel sounds heard in all 4 quadrants. No organomegaly or masses. Negative rebound, negative guarding, PEG tube noted without any signs of infection EXTREMITIES: No edema, pulses are equal bilaterally. No cyanosis or clubbing NEUROLOGY: Patient is moving left upper extremity and able to move left foot. Patient unable to move right upper and lower extremity. SKIN: Sacral wound with wound VAC at this time Procedures Peg Tube placed 05/08/17 (Dr. De Los Santos) Urinary Catheter: Yes Assessment to: Continue Cruz insert reason: Stage III/IV Press Ulcer Date of Insertion: Nov 08, 2017 Vascular Central Line Catheter: No A/P Assessment and Plan Sacral decubitus with perineal abscess, this will need incision, drainage and debridement Wound care nurse evaluated patient and made recommendations for wound care and surgical debridement 10/10/17, Gen. surgery was consulted for sacral decubitus. Was notified on 10/11/17 that general surgery does not do sacral decubitus debridement or surgeries 10/11/17. Case was discussed with plastic surgery who are actually not component design engineer at this time. Dr. Lai was able to arrange for to evaluate the patient 10/12/17. Plastic surgery, , evaluated the patient who recommended Santyl at this time and possible debridement in the near future 10/13/17. Patient remains septic, CT of the pelvis was performed which did indicate multiple abscess in the right posterior perineal area and posterior and left of the rectum, 10/13/17. Discussed this with plastic surgery Dr. Lai, who indicated that these abscesses are 2 deep and to close to rectal mucosal for plastic surgery. He recommended consulting colorectal surgery 10/13/17. Dr. Franklin was component design engineer for colorectal surgery, consult was placed to him for evaluation. Case was discussed with him on multiple occasions. He indicates that since this is connected to a sacral decubitus and since there is no communication with the rectum, this case is not appropriate for colorectal surgery, awaiting consultation report 10/15/17. Discussed with Dr. Abdullahi. He was planning a doing debridement of today, however was unable to obtain consent from family 10/17/17. Spoke with son, consents signed for I&D of sacral wound. Debridement performed, patient tolerated well. Dressing change orders in place. 10/19/17 Santyl to wound bed. EARL Pollack. Continue BID dressing changes. 11/02/17 Ortiz saw patient with recommendations for wound vac. Awaiting component technician. 11/03/17 wound vac placed by component technician. 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 Neurosurgery evaluated patient states no surgical intervention Continue PT/OT/ST Consulted as indicated patient is stable to be discharged to rehabilitation facility Case management consulted for inpatient rehabilitation, who indicated patient is homeless, no discharge disposition to inpatient rehabilitation Palliative care was consulted for recommendations. They recommended, see evaluation which has been done. Family wants aggressive measures and placement to be performed Psychiatry indicates that the patient does not have decision-making capacity to participate in her treatment or discharge plan. Sepsis with leukocytosis, febrile illness, tachycardia, sacral decubitus with perineal abscesses, resolved Continue IV cefepime, IV Levaquin for pseudomonas double coverage Discontinued vancomycin IV/Zosyn IV/fluconazole IV, Continue monitor for infection Blood cultures negative for 5 days Urine culture no growth for 48 hours C. difficile culture was negative Influenza testing is negative wound culture from sacral wound with Pseudomonas Consulted infectious disease for recommendations for continued fever who recommended continuation of antibiotic treatment with Zosyn for 4 weeks, end date 11/10/17. However patient with acute renal sufficiency, antibiotics changed CT of the pelvis that showed decubitus ulcer with small abscess in the right posterior perineal region and small abscess posterior and to the left rectum Dysphagia suspect secondary to intracranial bleed, Post PEG placement 05/09/17. 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 GI Prophylaxis: Prevacid via PEG tube DVT Prophylaxis: Sequential compression devices, chemical prophylaxis contraindicated secondary to intracranial hemorrhage Palliative care: Reconsulted palliative care this time in light of the patient' s worsening condition, family still wishing full aggressive management Records were reviewed. Awaiting case management for discharge planning No change in current treatment plan. Discharge Planning Case management for discharge planning Kayden Kelley Nov 08, 2017 08:56
--- NOTE | 2017-11-08 16:49 | PD.WCN.NOT ---
Wound Consult Description: Follow up Wound Vac placement to Sacrum Recommendation: Please refer to Wound VAC orders. Neg Pressure Wound Therapy Wound Location Wound Location: Sacrum Wound Description Length: 5.6cm Width: 2.9cm Depth: 2.0cm Underminin-12 O'clock 3.1cm 12-6 O'clock Tunneling: none Wound bed appearance: 75% beefy red tissue 15% pink tissue 10% fascia Settings Suction: 125 mmHg, Continuous Intensity: Low Other Information: Bridged, Windowpaned, Mushroomed Foam type: Black Number of pieces: 1 Additonal Information Leanne RN 3rd floor HHPO present for teaching.Sponge applied making contact with all undermining areas. Yon Caruso [facility] Nov 08, 2017 16:49
[2017-11-08] MEDS: LEVOFLOXACIN 500 MG PREMIX INJ 100 ML IV SCH (17:53)
[2017-11-08 20:00] VITALS: BP 136/99; PULSE 95; RESP 20; TEMP 98.8; O2SAT 100
[2017-11-09] VITALS: BP 132/92; PULSE 86; RESP 20; TEMP 98.6; O2SAT 100
[2017-11-09] MEDS: hydrALAZINE HCL 50 MG TAB PEG SCH ×5 (00:42→23:47)
[2017-11-09] MEDS: NIFEdipine 20 MG CAP PEG SCH ×5 (00:42→23:47)
[2017-11-09 04:00] VITALS: BP 150/98; PULSE 86; RESP 20; TEMP 98.1; O2SAT 100
[2017-11-09] MEDS: FREE WATER G-TUBE SCH ×5 (06:00→23:46)
[2017-11-09 07:50] VITALS: BP 128/72; PULSE 91; RESP 20; TEMP 98.1; O2SAT 97
--- NOTE | 2017-11-09 08:26 | HHI.PR ---
Subjective Remarks Patient seen and examined today for follow-up on acute illness, hemorrhagic CVA. Patient denies any new complaints. No change in clinical status. Awaiting case management for discharge planning. Objective Vitals Vital Signs Date Time Temp Pulse Resp B/P (MAP) Pulse Ox O2 Delivery O2 Flow Rate FiO2 11/09/17 04:00 98.1 86 20 150/98 (115) 100 11/09/17 00:00 98.6 86 20 132/92 (105) 100 11/08/17 20:00 98.8 95 20 136/99 (111) 100 I/O 11/08/17 11/08/17 11/08/17 11/09/17 11/09/17 11/09/17 07:00 15:00 23:00 07:00 15:00 23:00 Intake Total 100 ml 300 ml 620 ml Output Total 250 ml 600 ml Balance -150 ml 300 ml 20 ml Intake Oral 0 ml IV Total 100 ml 300 ml Tube Feeding 240 ml Tube Irrigant 380 ml Output Urine Total 250 ml 600 ml # Bowel Movements 0 Result Diagram: 11/08/17 0500 11/08/17 0500 Objective Remarks GENERAL: Well-developed, well-nourished, in no acute distress. Awake, responds minimally with head nods. Trying to speak HEENT: Head is normocephalic without any lesions or masses noted. Facial features are symmetric. Eyes: Conjunctivae were clear. CARDIAC: Regular rhythm, regular rate. S1/S2 are heard. 2/6 ejection, no gallops or rubs. LUNGS: Clear to auscultation bilaterally. No wheeze, rhonchi or rales. No use of accessory muscles on inspiration or expiration. ABDOMEN: Soft, nontender. Nondistended. Bowel sounds heard in all 4 quadrants. No organomegaly or masses. Negative rebound, negative guarding, PEG tube noted without any signs of infection EXTREMITIES: No edema, pulses are equal bilaterally. No cyanosis or clubbing NEUROLOGY: Patient is moving left upper extremity and able to move left foot. Patient unable to move right upper and lower extremity. SKIN: Sacral wound with wound VAC at this time Procedures Peg Tube placed 05/08/17 (Dr. De Los Santos) Urinary Catheter: Yes Assessment to: Continue Date of Insertion: Nov 08, 2017 Vascular Central Line Catheter: No A/P Assessment and Plan Sacral decubitus with perineal abscess, this will need incision, drainage and debridement Wound care nurse evaluated patient and made recommendations for wound care and surgical debridement 10/10/17, Gen. surgery was consulted for sacral decubitus. Was notified on 10/11/17 that general surgery does not do sacral decubitus debridement or surgeries 10/11/17. Case was discussed with plastic surgery who are actually not design consultant at this time. Dr. Lai was able to arrange for to evaluate the patient 10/12/17. Plastic surgery, , evaluated the patient who recommended Santyl at this time and possible debridement in the near future 10/13/17. Patient remains septic, CT of the pelvis was performed which did indicate multiple abscess in the right posterior perineal area and posterior and left of the rectum, 10/13/17. Discussed this with plastic surgery Dr. Lai, who indicated that these abscesses are 2 deep and to close to rectal mucosal for plastic surgery. He recommended consulting colorectal surgery 10/13/17. Dr. Franklin was design consultant for colorectal surgery, consult was placed to him for evaluation. Case was discussed with him on multiple occasions. He indicates that since this is connected to a sacral decubitus and since there is no communication with the rectum, this case is not appropriate for colorectal surgery, awaiting consultation report 10/15/17. Discussed with Dr. Abdullahi. He was planning a doing debridement of today, however was unable to obtain consent from family 10/17/17. Spoke with son, consents signed for I&D of sacral wound. Debridement performed, patient tolerated well. Dressing change orders in place. 10/19/17 Santyl to wound bed. EARL Pollack. Continue BID dressing changes. 11/02/17 Ortiz saw patient with recommendations for wound vac. Awaiting ux designer. 11/03/17 wound vac placed by ux designer. 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 Neurosurgery evaluated patient states no surgical intervention Continue PT/OT/ST Consulted as indicated patient is stable to be discharged to rehabilitation facility Case management consulted for inpatient rehabilitation, who indicated patient is homeless, no discharge disposition to inpatient rehabilitation Palliative care was consulted for recommendations. They recommended, see evaluation which has been done. Family wants aggressive measures and placement to be performed Psychiatry indicates that the patient does not have decision-making capacity to participate in her treatment or discharge plan. Sepsis with leukocytosis, febrile illness, tachycardia, sacral decubitus with perineal abscesses, resolved Continue IV cefepime, IV Levaquin for pseudomonas double coverage Discontinued vancomycin IV/Zosyn IV/fluconazole IV, Continue monitor for infection Blood cultures negative for 5 days Urine culture no growth for 48 hours C. difficile culture was negative Influenza testing is negative wound culture from sacral wound with Pseudomonas Consulted infectious disease for recommendations for continued fever who recommended continuation of antibiotic treatment with Zosyn for 4 weeks, end date 11/10/17. However patient with acute renal sufficiency, antibiotics changed CT of the pelvis that showed decubitus ulcer with small abscess in the right posterior perineal region and small abscess posterior and to the left rectum Dysphagia suspect secondary to intracranial bleed, Post PEG placement 05/09/17. 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 GI Prophylaxis: Prevacid via PEG tube DVT Prophylaxis: Sequential compression devices, chemical prophylaxis contraindicated secondary to intracranial hemorrhage Palliative care: Reconsulted palliative care this time in light of the patient' s worsening condition, family still wishing full aggressive management Records were reviewed. No change in current treatment plan. Awaiting case management for discharge planning Discharge Planning Case management for discharge planning Kayden Kelley Nov 09, 2017 08:26
[2017-11-09] MEDS: CEFEPIME INJ 1,000 MG in SODIUM CHLORIDE 0.9% INJ 100 ML IV SCH ×2 (08:54→20:47)
[2017-11-09] MEDS: METOPROLOL TARTRATE 100 MG TAB PEG SCH ×2 (08:56→20:53)
[2017-11-09] MEDS: LANSOPRAZOLE SOLUTAB 30 MG TAB G-TUBE SCH (08:56)
[2017-11-09] MEDS: HYDROCHLOROTHIAZIDE 25 MG TAB PO SCH (08:56)
[2017-11-09] MEDS: LACTIC ACID (AMMONIUM LACTATE) 12% LOTION 225 GM BTL TOPICAL SCH ×2 (08:57→20:54)
[2017-11-09] MEDS: COLLAGENASE OINT 30 GM TUBE TOPICAL SCH ×2 (08:58→20:54)
[2017-11-09] MEDS: LISINOPRIL 20 MG TAB PEG SCH ×2 (09:03→20:54)
[2017-11-09] MEDS: LEVOFLOXACIN 500 MG PREMIX INJ 100 ML IV SCH (17:56)
[2017-11-09 20:00] VITALS: BP 135/83; PULSE 90; RESP 20; TEMP 99.7; O2SAT 98
[2017-11-10] MEDS: NIFEdipine 20 MG CAP PEG SCH ×4 (05:18→23:37)
[2017-11-10] MEDS: hydrALAZINE HCL 50 MG TAB PEG SCH ×4 (05:18→23:37)
[2017-11-10] MEDS: FREE WATER G-TUBE SCH ×4 (05:18→23:37)
[2017-11-10 08:00] VITALS: BP 113/77; PULSE 97; RESP 20; TEMP 99.9; O2SAT 99
--- NOTE | 2017-11-10 08:43 | HHI.PR ---
Subjective Remarks Patient seen and examined today for follow-up on acute illness, hemorrhagic CVA. Patient resting comfortably, No acute issues overnight Objective Vitals Vital Signs Date Time Temp Pulse Resp B/P (MAP) Pulse Ox O2 Delivery O2 Flow Rate FiO2 11/10/17 08:00 99.9 97 20 113/77 (89) 99 11/09/17 20:00 99.7 90 20 135/83 (100) 98 I/O 11/09/17 11/09/17 11/09/17 11/10/17 11/10/17 11/10/17 07:00 15:00 23:00 07:00 15:00 23:00 Intake Total 620 ml 200 ml 1140 ml Output Total 600 ml 1700 ml Balance 20 ml -1500 ml 1140 ml Intake Oral 0 ml IV Total 200 ml Tube Feeding 240 ml 240 ml Tube Irrigant 380 ml 600 ml Other 300 ml Output Urine Total 600 ml 1600 ml Stool Total 100 ml # Bowel Movements 0 1 Result Diagram: 11/08/17 0500 11/08/17 0500 Objective Remarks GENERAL: Well-developed, well-nourished, in no acute distress. Awake, responds minimally with head nods. Trying to speak HEENT: Head is normocephalic without any lesions or masses noted. Facial features are symmetric. Eyes: Conjunctivae were clear. CARDIAC: Regular rhythm, regular rate. S1/S2 are heard. 2/6 ejection, no gallops or rubs. LUNGS: Clear to auscultation bilaterally. No wheeze, rhonchi or rales. No use of accessory muscles on inspiration or expiration. ABDOMEN: Soft, nontender. Nondistended. Bowel sounds heard in all 4 quadrants. No organomegaly or masses. Negative rebound, negative guarding, PEG tube noted without any signs of infection EXTREMITIES: No edema, pulses are equal bilaterally. No cyanosis or clubbing NEUROLOGY: Patient is moving left upper extremity and able to move left foot. Patient unable to move right upper and lower extremity. SKIN: Sacral wound with wound VAC at this time Procedures Peg Tube placed 05/08/17 (Dr. De Los Santos) Urinary Catheter: Yes Assessment to: Continue Cruz insert reason: Stage III/IV Press Ulcer Date of Insertion: Nov 08, 2017 Vascular Central Line Catheter: No A/P Assessment and Plan Sacral decubitus with perineal abscess, this will need incision, drainage and debridement Wound care nurse evaluated patient and made recommendations for wound care and surgical debridement 10/10/17, Gen. surgery was consulted for sacral decubitus. Was notified on 10/11/17 that general surgery does not do sacral decubitus debridement or surgeries 10/11/17. Case was discussed with plastic surgery who are actually not construction laborer at this time. Dr. Lai was able to arrange for to evaluate the patient 10/12/17. Plastic surgery, , evaluated the patient who recommended Santyl at this time and possible debridement in the near future 10/13/17. Patient remains septic, CT of the pelvis was performed which did indicate multiple abscess in the right posterior perineal area and posterior and left of the rectum, 10/13/17. Discussed this with plastic surgery Dr. Lai, who indicated that these abscesses are 2 deep and to close to rectal mucosal for plastic surgery. He recommended consulting colorectal surgery 10/13/17. Dr. Franklin was construction laborer for colorectal surgery, consult was placed to him for evaluation. Case was discussed with him on multiple occasions. He indicates that since this is connected to a sacral decubitus and since there is no communication with the rectum, this case is not appropriate for colorectal surgery, awaiting consultation report 10/15/17. Discussed with Dr. Abdullahi. He was planning a doing debridement of today, however was unable to obtain consent from family 10/17/17. Spoke with son, consents signed for I&D of sacral wound. Debridement performed, patient tolerated well. Dressing change orders in place. 10/19/17 Santyl to wound bed. EARL Pollack. Continue BID dressing changes. 11/02/17 Ortiz saw patient with recommendations for wound vac. Awaiting range operator. 11/03/17 wound vac placed by range operator. 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 Neurosurgery evaluated patient states no surgical intervention Continue PT/OT/ST Consulted as indicated patient is stable to be discharged to rehabilitation facility Case management consulted for inpatient rehabilitation, who indicated patient is homeless, no discharge disposition to inpatient rehabilitation Palliative care was consulted for recommendations. They recommended, see evaluation which has been done. Family wants aggressive measures and placement to be performed Psychiatry indicates that the patient does not have decision-making capacity to participate in her treatment or discharge plan. Sepsis with leukocytosis, febrile illness, tachycardia, sacral decubitus with perineal abscesses, resolved Continue IV cefepime, IV Levaquin for pseudomonas double coverage Discontinued vancomycin IV/Zosyn IV/fluconazole IV, Continue monitor for infection Blood cultures negative for 5 days Urine culture no growth for 48 hours C. difficile culture was negative Influenza testing is negative wound culture from sacral wound with Pseudomonas Consulted infectious disease for recommendations for continued fever who recommended continuation of antibiotic treatment with Zosyn for 4 weeks, end date 11/10/17. However patient with acute renal sufficiency, antibiotics changed CT of the pelvis that showed decubitus ulcer with small abscess in the right posterior perineal region and small abscess posterior and to the left rectum Dysphagia suspect secondary to intracranial bleed, Post PEG placement 05/09/17. 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 GI Prophylaxis: Prevacid via PEG tube DVT Prophylaxis: Sequential compression devices, chemical prophylaxis contraindicated secondary to intracranial hemorrhage Palliative care: Reconsulted palliative care this time in light of the patient' s worsening condition, family still wishing full aggressive management Records were reviewed. Awaiting case management for discharge planning No change in current treatment plan. Discharge Planning Case management for discharge planning Kayden Kelley Nov 10, 2017 08:43
[2017-11-10] MEDS: LISINOPRIL 20 MG TAB PEG SCH ×2 (09:00→21:28)
[2017-11-10] MEDS: LANSOPRAZOLE SOLUTAB 30 MG TAB G-TUBE SCH (09:05)
[2017-11-10] MEDS: HYDROCHLOROTHIAZIDE 25 MG TAB PO SCH (09:05)
[2017-11-10] MEDS: METOPROLOL TARTRATE 100 MG TAB PEG SCH ×2 (09:05→21:28)
[2017-11-10] MEDS: CEFEPIME INJ 1,000 MG in SODIUM CHLORIDE 0.9% INJ 100 ML IV SCH (09:06)
[2017-11-10] MEDS: COLLAGENASE OINT 30 GM TUBE TOPICAL SCH ×2 (09:07→21:29)
[2017-11-10] MEDS: LACTIC ACID (AMMONIUM LACTATE) 12% LOTION 225 GM BTL TOPICAL SCH ×2 (09:07→21:29)
[2017-11-10 12:00] VITALS: BP 116/71; PULSE 76; RESP 14; TEMP 96.9; O2SAT 99
[2017-11-10 16:00] VITALS: BP 118/74; PULSE 51; RESP 12; TEMP 97.1; O2SAT 99
[2017-11-10 20:00] VITALS: BP 103/79; PULSE 72; RESP 16; TEMP 97.8; O2SAT 100
[2017-11-11] MEDS: NIFEdipine 20 MG CAP PEG SCH ×3 (05:39→17:37)
[2017-11-11] MEDS: hydrALAZINE HCL 50 MG TAB PEG SCH ×3 (05:39→17:37)
[2017-11-11] MEDS: FREE WATER G-TUBE SCH ×3 (05:39→17:37)
--- NOTE | 2017-11-11 08:37 | HHI.PR ---
Subjective Remarks Patient seen and examined today for follow-up on sacral decubitus, hemorrhagic CVA. Patient lying in bed comfortable, awake. Son at bedside. Patient denies any new complaints. No change in clinical status. Vital signs are stable, afebrile Objective Vitals Vital Signs Date Time Temp Pulse Resp B/P (MAP) Pulse Ox O2 Delivery O2 Flow Rate FiO2 11/10/17 20:00 97.8 72 16 103/79 (87) 100 11/10/17 16:00 97.1 51 12 118/74 (89) 99 11/10/17 12:00 96.9 76 14 116/71 (86) 99 I/O 11/10/17 11/10/17 11/10/17 11/11/17 11/11/17 11/11/17 07:00 15:00 23:00 07:00 15:00 23:00 Intake Total 1140 ml 300 ml Output Total 1500 ml Balance 1140 ml 300 ml -1500 ml Tube Feeding 240 ml Tube Irrigant 600 ml Other 300 ml 300 ml Output Urine Total 900 ml Stool Total 600 ml Result Diagram: 11/08/17 0500 11/08/17 0500 Objective Remarks GENERAL: Well-developed, well-nourished, in no acute distress. Awake, responds minimally with head nods. Trying to speak HEENT: Head is normocephalic without any lesions or masses noted. Facial features are symmetric. Eyes: Conjunctivae were clear. CARDIAC: Regular rhythm, regular rate. S1/S2 are heard. 2/6 ejection, no gallops or rubs. LUNGS: Clear to auscultation bilaterally. No wheeze, rhonchi or rales. No use of accessory muscles on inspiration or expiration. ABDOMEN: Soft, nontender. Nondistended. Bowel sounds heard in all 4 quadrants. No organomegaly or masses. Negative rebound, negative guarding, PEG tube noted without any signs of infection EXTREMITIES: No edema, pulses are equal bilaterally. No cyanosis or clubbing NEUROLOGY: Patient is moving left upper extremity and able to move left foot. Patient unable to move right upper and lower extremity. SKIN: Sacral wound with wound VAC at this time Procedures Peg Tube placed 05/08/17 (Dr. De Los Santos) Urinary Catheter: Yes Assessment to: Continue Cruz insert reason: Stage III/IV Press Ulcer Date of Insertion: Nov 08, 2017 Vascular Central Line Catheter: No A/P Assessment and Plan Sacral decubitus with perineal abscess, this will need incision, drainage and debridement Wound care nurse evaluated patient and made recommendations for wound care and surgical debridement 10/10/17, Gen. surgery was consulted for sacral decubitus. Was notified on 10/11/17 that general surgery does not do sacral decubitus debridement or surgeries 10/11/17. Case was discussed with plastic surgery who are actually not first front ventilator at this time. Dr. Lai was able to arrange for to evaluate the patient 10/12/17. Plastic surgery, , evaluated the patient who recommended Santyl at this time and possible debridement in the near future 10/13/17. Patient remains septic, CT of the pelvis was performed which did indicate multiple abscess in the right posterior perineal area and posterior and left of the rectum, 10/13/17. Discussed this with plastic surgery Dr. Lai, who indicated that these abscesses are 2 deep and to close to rectal mucosal for plastic surgery. He recommended consulting colorectal surgery 10/13/17. Dr. Franklin was first front ventilator for colorectal surgery, consult was placed to him for evaluation. Case was discussed with him on multiple occasions. He indicates that since this is connected to a sacral decubitus and since there is no communication with the rectum, this case is not appropriate for colorectal surgery, awaiting consultation report 10/15/17. Discussed with Dr. Abdullahi. He was planning a doing debridement of today, however was unable to obtain consent from family 10/17/17. Spoke with son, consents signed for I&D of sacral wound. Debridement performed, patient tolerated well. Dressing change orders in place. 10/19/17 Santyl to wound bed. EARL Pollack. Continue BID dressing changes. 11/02/17 Ortiz saw patient with recommendations for wound vac. Awaiting banquet director. 11/03/17 wound vac placed by banquet director. 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 Neurosurgery evaluated patient states no surgical intervention Continue PT/OT/ST Consulted as indicated patient is stable to be discharged to rehabilitation facility Case management consulted for inpatient rehabilitation, who indicated patient is homeless, no discharge disposition to inpatient rehabilitation Palliative care was consulted for recommendations. They recommended, see evaluation which has been done. Family wants aggressive measures and placement to be performed Psychiatry indicates that the patient does not have decision-making capacity to participate in her treatment or discharge plan. Sepsis with leukocytosis, febrile illness, tachycardia, sacral decubitus with perineal abscesses, resolved Continue IV cefepime, IV Levaquin for pseudomonas double coverage Discontinued vancomycin IV/Zosyn IV/fluconazole IV, Continue monitor for infection Blood cultures negative for 5 days Urine culture no growth for 48 hours C. difficile culture was negative Influenza testing is negative wound culture from sacral wound with Pseudomonas Consulted infectious disease for recommendations for continued fever who recommended continuation of antibiotic treatment with Zosyn for 4 weeks, end date 11/10/17. However patient with acute renal sufficiency, antibiotics changed CT of the pelvis that showed decubitus ulcer with small abscess in the right posterior perineal region and small abscess posterior and to the left rectum Dysphagia suspect secondary to intracranial bleed, Post PEG placement 05/09/17. 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 GI Prophylaxis: Prevacid via PEG tube DVT Prophylaxis: Sequential compression devices, chemical prophylaxis contraindicated secondary to intracranial hemorrhage Palliative care: Reconsulted palliative care this time in light of the patient' s worsening condition, family still wishing full aggressive management Records were reviewed. No change in current treatment plan. Awaiting case management for discharge planning Discharge Planning Case management for discharge planning Kayden Kelley Nov 11, 2017 08:37
[2017-11-11 08:58] VITALS: BP 122/83; PULSE 83; RESP 18; TEMP 96.3; O2SAT 100
[2017-11-11] MEDS: LACTIC ACID (AMMONIUM LACTATE) 12% LOTION 225 GM BTL TOPICAL SCH ×2 (09:00→20:40)
[2017-11-11] MEDS: COLLAGENASE OINT 30 GM TUBE TOPICAL SCH ×2 (09:00→20:40)
[2017-11-11] MEDS: HYDROCHLOROTHIAZIDE 25 MG TAB PO SCH (10:37)
[2017-11-11] MEDS: METOPROLOL TARTRATE 100 MG TAB PEG SCH ×2 (10:37→20:40)
[2017-11-11] MEDS: LISINOPRIL 20 MG TAB PEG SCH ×2 (10:37→20:40)
[2017-11-11] MEDS: LANSOPRAZOLE SOLUTAB 30 MG TAB G-TUBE SCH (10:37)
[2017-11-11 14:04] VITALS: BP 142/92; PULSE 58; RESP 15; TEMP 97.4; O2SAT 100
[2017-11-11 17:17] VITALS: BP 184/90; PULSE 79; RESP 15; TEMP 98.9; O2SAT 97
[2017-11-11 20:00] VITALS: BP 112/57; PULSE 88; RESP 20; TEMP 99.1; O2SAT 99
[2017-11-12] MEDS: FREE WATER G-TUBE SCH ×4 (00:13→16:59)
[2017-11-12] MEDS: NIFEdipine 20 MG CAP PEG SCH ×4 (00:13→17:00)
[2017-11-12] MEDS: hydrALAZINE HCL 50 MG TAB PEG SCH ×4 (00:13→17:00)
[2017-11-12 08:00] VITALS: BP 104/66; PULSE 79; RESP 16; TEMP 96.7; O2SAT 97
[2017-11-12] MEDS: HYDROCHLOROTHIAZIDE 25 MG TAB PO SCH (08:12)
[2017-11-12] MEDS: METOPROLOL TARTRATE 100 MG TAB PEG SCH ×3 (08:12→21:46)
[2017-11-12] MEDS: LACTIC ACID (AMMONIUM LACTATE) 12% LOTION 225 GM BTL TOPICAL SCH ×2 (08:12→21:47)
[2017-11-12] MEDS: LISINOPRIL 20 MG TAB PEG SCH ×2 (08:12→21:46)
[2017-11-12] MEDS: LANSOPRAZOLE SOLUTAB 30 MG TAB G-TUBE SCH (08:12)
[2017-11-12] MEDS: COLLAGENASE OINT 30 GM TUBE TOPICAL SCH ×2 (08:14→21:47)
--- NOTE | 2017-11-12 08:31 | HHI.PR ---
Subjective Remarks Patient seen and examined today for follow-up on sacral decubitus, hemorrhagic CVA. Patient lying in bed comfortable. Patient does not indicate any new complaints. No change in clinical status. afebrile Objective Vitals Vital Signs Date Time Temp Pulse Resp B/P (MAP) Pulse Ox O2 Delivery O2 Flow Rate FiO2 11/11/17 20:00 99.1 88 20 112/57 (75) 99 11/11/17 17:17 98.9 79 15 184/90 (121) 97 11/11/17 14:04 97.4 58 15 142/92 (109) 100 11/11/17 08:58 96.3 83 18 122/83 (96) 100 I/O 11/11/17 11/11/17 11/11/17 11/12/17 11/12/17 11/12/17 07:00 15:00 23:00 07:00 15:00 23:00 Intake Total 670 ml 1180 ml 550 ml Output Total 1500 ml 800 ml 900 ml Balance -1500 ml 670 ml 380 ml -350 ml Tube Feeding 480 ml 480 ml Tube Irrigant 190 ml 700 ml 250 ml Other 300 ml Output Urine Total 900 ml 800 ml 900 ml Stool Total 600 ml Result Diagram: 11/08/17 0500 11/08/17 0500 Objective Remarks GENERAL: Well-developed, well-nourished, in no acute distress. Awake, responds minimally with head nods. Trying to speak HEENT: Head is normocephalic without any lesions or masses noted. Facial features are symmetric. Eyes: Conjunctivae were clear. CARDIAC: Regular rhythm, regular rate. S1/S2 are heard. 2/6 ejection, no gallops or rubs. LUNGS: Clear to auscultation bilaterally. No wheeze, rhonchi or rales. No use of accessory muscles on inspiration or expiration. ABDOMEN: Soft, nontender. Nondistended. Bowel sounds heard in all 4 quadrants. No organomegaly or masses. Negative rebound, negative guarding, PEG tube noted without any signs of infection EXTREMITIES: No edema, pulses are equal bilaterally. No cyanosis or clubbing NEUROLOGY: Patient is moving left upper extremity and able to move left foot. Patient unable to move right upper and lower extremity. SKIN: Sacral wound with wound VAC at this time Procedures Peg Tube placed 05/08/17 (Dr. De Los Santos) Urinary Catheter: Yes Assessment to: Continue Cruz insert reason: Stage III/IV Press Ulcer Date of Insertion: Nov 08, 2017 Vascular Central Line Catheter: No A/P Assessment and Plan Sacral decubitus with perineal abscess, this will need incision, drainage and debridement Wound care nurse evaluated patient and made recommendations for wound care and surgical debridement 10/10/17, Gen. surgery was consulted for sacral decubitus. Was notified on 10/11/17 that general surgery does not do sacral decubitus debridement or surgeries 10/11/17. Case was discussed with plastic surgery who are actually not multimedia educational specialist at this time. Dr. Lai was able to arrange for to evaluate the patient 10/12/17. Plastic surgery, , evaluated the patient who recommended Santyl at this time and possible debridement in the near future 10/13/17. Patient remains septic, CT of the pelvis was performed which did indicate multiple abscess in the right posterior perineal area and posterior and left of the rectum, 10/13/17. Discussed this with plastic surgery Dr. Lai, who indicated that these abscesses are 2 deep and to close to rectal mucosal for plastic surgery. He recommended consulting colorectal surgery 10/13/17. Dr. Franklin was multimedia educational specialist for colorectal surgery, consult was placed to him for evaluation. Case was discussed with him on multiple occasions. He indicates that since this is connected to a sacral decubitus and since there is no communication with the rectum, this case is not appropriate for colorectal surgery, awaiting consultation report 10/15/17. Discussed with Dr. Abdullahi. He was planning a doing debridement of today, however was unable to obtain consent from family 10/17/17. Spoke with son, consents signed for I&D of sacral wound. Debridement performed, patient tolerated well. Dressing change orders in place. 10/19/17 Santyl to wound bed. EARL Pollack. Continue BID dressing changes. 11/02/17 Ortiz saw patient with recommendations for wound vac. Awaiting regional clinical research associate. 11/03/17 wound vac placed by regional clinical research associate. 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 Neurosurgery evaluated patient states no surgical intervention Continue PT/OT/ST Consulted as indicated patient is stable to be discharged to rehabilitation facility Case management consulted for inpatient rehabilitation, who indicated patient is homeless, no discharge disposition to inpatient rehabilitation Palliative care was consulted for recommendations. They recommended, see evaluation which has been done. Family wants aggressive measures and placement to be performed Psychiatry indicates that the patient does not have decision-making capacity to participate in her treatment or discharge plan. Sepsis with leukocytosis, febrile illness, tachycardia, sacral decubitus with perineal abscesses, resolved Continue IV cefepime, IV Levaquin for pseudomonas double coverage Discontinued vancomycin IV/Zosyn IV/fluconazole IV, Continue monitor for infection Blood cultures negative for 5 days Urine culture no growth for 48 hours C. difficile culture was negative Influenza testing is negative wound culture from sacral wound with Pseudomonas Consulted infectious disease for recommendations for continued fever who recommended continuation of antibiotic treatment with Zosyn for 4 weeks, end date 11/10/17. However patient with acute renal sufficiency, antibiotics changed CT of the pelvis that showed decubitus ulcer with small abscess in the right posterior perineal region and small abscess posterior and to the left rectum Dysphagia suspect secondary to intracranial bleed, Post PEG placement 05/09/17. 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 GI Prophylaxis: Prevacid via PEG tube DVT Prophylaxis: Sequential compression devices, chemical prophylaxis contraindicated secondary to intracranial hemorrhage Palliative care: Reconsulted palliative care this time in light of the patient' s worsening condition, family still wishing full aggressive management Records were reviewed. Awaiting case management for discharge planning No change in current treatment plan. Discharge Planning Case management for discharge planning Kayden Kelley Nov 12, 2017 08:31
[2017-11-12 12:00] VITALS: BP 95/52; PULSE 69; RESP 18; TEMP 96.6; O2SAT 98
[2017-11-12 19:15] VITALS: BP 115/85; PULSE 72; RESP 16; TEMP 98.7; O2SAT 95
[2017-11-13] MEDS: NIFEdipine 20 MG CAP PEG SCH ×4 (00:28→17:39)
[2017-11-13] MEDS: hydrALAZINE HCL 50 MG TAB PEG SCH ×4 (00:28→17:40)
[2017-11-13] MEDS: FREE WATER G-TUBE SCH ×4 (00:28→17:40)
[2017-11-13 08:00] VITALS: BP 101/71; PULSE 71; RESP 14; TEMP 96.3; O2SAT 100
--- NOTE | 2017-11-13 08:03 | HHI.PR ---
Subjective Remarks Patient seen and examined today for follow-up on sacral decubitus, hemorrhagic CVA. Patient resting comfortably, no new complaints. Afebrile Objective Vitals Vital Signs Date Time Temp Pulse Resp B/P (MAP) Pulse Ox O2 Delivery O2 Flow Rate FiO2 11/12/17 19:15 98.7 72 16 115/85 (95) 95 11/12/17 12:00 96.6 69 18 95/52 (66) 98 I/O 11/12/17 11/12/17 11/12/17 11/13/17 11/13/17 11/13/17 06:59 14:59 22:59 06:59 14:59 22:59 Intake Total 550 ml 0 ml 1140 ml Output Total 900 ml 800 ml 650 ml Balance -350 ml -800 ml 490 ml Intake Oral 0 ml Tube Feeding 240 ml Tube Irrigant 250 ml 600 ml Other 300 ml 300 ml Output Urine Total 900 ml 800 ml 650 ml Objective Remarks GENERAL: Well-developed, well-nourished, in no acute distress. Awake, responds minimally with head nods. Trying to speak HEENT: Head is normocephalic without any lesions or masses noted. Facial features are symmetric. Eyes: Conjunctivae were clear. CARDIAC: Regular rhythm, regular rate. S1/S2 are heard. 2/6 ejection, no gallops or rubs. LUNGS: Clear to auscultation bilaterally. No wheeze, rhonchi or rales. No use of accessory muscles on inspiration or expiration. ABDOMEN: Soft, nontender. Nondistended. Bowel sounds heard in all 4 quadrants. No organomegaly or masses. Negative rebound, negative guarding, PEG tube noted without any signs of infection EXTREMITIES: No edema, pulses are equal bilaterally. No cyanosis or clubbing NEUROLOGY: Patient is moving left upper extremity and able to move left foot. Patient unable to move right upper and lower extremity. SKIN: Sacral wound with wound VAC at this time Procedures Peg Tube placed 05/08/17 (Dr. De Los Santos) Urinary Catheter: Yes Assessment to: Continue Cruz insert reason: Stage III/IV Press Ulcer Date of Insertion: Nov 08, 2017 Vascular Central Line Catheter: No A/P Assessment and Plan Sacral decubitus with perineal abscess, this will need incision, drainage and debridement Wound care nurse evaluated patient and made recommendations for wound care and surgical debridement 10/10/17, Gen. surgery was consulted for sacral decubitus. Was notified on 10/11/17 that general surgery does not do sacral decubitus debridement or surgeries 10/11/17. Case was discussed with plastic surgery who are actually not nutrition associate at this time. Dr. Lai was able to arrange for to evaluate the patient 10/12/17. Plastic surgery, , evaluated the patient who recommended Santyl at this time and possible debridement in the near future 10/13/17. Patient remains septic, CT of the pelvis was performed which did indicate multiple abscess in the right posterior perineal area and posterior and left of the rectum, 10/13/17. Discussed this with plastic surgery Dr. Lai, who indicated that these abscesses are 2 deep and to close to rectal mucosal for plastic surgery. He recommended consulting colorectal surgery 10/13/17. Dr. Franklin was nutrition associate for colorectal surgery, consult was placed to him for evaluation. Case was discussed with him on multiple occasions. He indicates that since this is connected to a sacral decubitus and since there is no communication with the rectum, this case is not appropriate for colorectal surgery, awaiting consultation report 10/15/17. Discussed with Dr. Abdullahi. He was planning a doing debridement of today, however was unable to obtain consent from family 10/17/17. Spoke with son, consents signed for I&D of sacral wound. Debridement performed, patient tolerated well. Dressing change orders in place. 10/19/17 Santyl to wound bed. EARL Pollack. Continue BID dressing changes. 11/02/17 Ortiz saw patient with recommendations for wound vac. Awaiting inspector floor sub assembly. 11/03/17 wound vac placed by inspector floor sub assembly. 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 Neurosurgery evaluated patient states no surgical intervention Continue PT/OT/ST Consulted as indicated patient is stable to be discharged to rehabilitation facility Case management consulted for inpatient rehabilitation, who indicated patient is homeless, no discharge disposition to inpatient rehabilitation Palliative care was consulted for recommendations. They recommended, see evaluation which has been done. Family wants aggressive measures and placement to be performed Psychiatry indicates that the patient does not have decision-making capacity to participate in her treatment or discharge plan. Patient to get in stretcher chair 3 times daily, will re-iterate to nursing staff Sepsis with leukocytosis, febrile illness, tachycardia, sacral decubitus with perineal abscesses, resolved Continue IV cefepime, IV Levaquin for pseudomonas double coverage Discontinued vancomycin IV/Zosyn IV/fluconazole IV, Continue monitor for infection Blood cultures negative for 5 days Urine culture no growth for 48 hours C. difficile culture was negative Influenza testing is negative wound culture from sacral wound with Pseudomonas Consulted infectious disease for recommendations for continued fever who recommended continuation of antibiotic treatment with Zosyn for 4 weeks, end date 11/10/17. However patient with acute renal sufficiency, antibiotics changed CT of the pelvis that showed decubitus ulcer with small abscess in the right posterior perineal region and small abscess posterior and to the left rectum Dysphagia suspect secondary to intracranial bleed, Post PEG placement 05/09/17. 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 GI Prophylaxis: Prevacid via PEG tube DVT Prophylaxis: Sequential compression devices, chemical prophylaxis contraindicated secondary to intracranial hemorrhage Palliative care: Reconsulted palliative care this time in light of the patient' s worsening condition, family still wishing full aggressive management Records were reviewed. No change in current treatment plan. Awaiting case management for discharge planning Discharge Planning Case management for discharge planning Kayden Kelley Nov 13, 2017 08:03
[2017-11-13] MEDS: COLLAGENASE OINT 30 GM TUBE TOPICAL SCH ×2 (09:00→20:50)
[2017-11-13] MEDS: LANSOPRAZOLE SOLUTAB 30 MG TAB G-TUBE SCH (09:20)
[2017-11-13] MEDS: LISINOPRIL 20 MG TAB PEG SCH ×2 (09:20→20:48)
[2017-11-13] MEDS: HYDROCHLOROTHIAZIDE 25 MG TAB PO SCH (09:20)
[2017-11-13] MEDS: LACTIC ACID (AMMONIUM LACTATE) 12% LOTION 225 GM BTL TOPICAL SCH ×2 (09:21→20:49)
[2017-11-13 12:42] VITALS: BP 104/74; PULSE 67; O2SAT 67
[2017-11-13 17:37] VITALS: BP 112/77; PULSE 76
[2017-11-13 20:00] VITALS: BP 104/69; PULSE 96; RESP 20; TEMP 98.7; O2SAT 98
[2017-11-13] MEDS: METOPROLOL TARTRATE 100 MG TAB PEG SCH (20:48)
[2017-11-14] VITALS: BP 118/69; PULSE 81; RESP 20; TEMP 98.6; O2SAT 90
[2017-11-14] MEDS: hydrALAZINE HCL 50 MG TAB PEG SCH ×5 (05:26→23:44)
[2017-11-14] MEDS: NIFEdipine 20 MG CAP PEG SCH ×5 (05:26→23:44)
[2017-11-14] MEDS: FREE WATER G-TUBE SCH ×5 (05:26→23:45)
[2017-11-14] MEDS: METOPROLOL TARTRATE 100 MG TAB PEG SCH ×2 (07:56→23:44)
[2017-11-14] MEDS: LISINOPRIL 20 MG TAB PEG SCH ×2 (07:56→23:44)
[2017-11-14] MEDS: HYDROCHLOROTHIAZIDE 25 MG TAB PO SCH (07:56)
[2017-11-14] MEDS: LANSOPRAZOLE SOLUTAB 30 MG TAB G-TUBE SCH (07:56)
[2017-11-14] MEDS: LACTIC ACID (AMMONIUM LACTATE) 12% LOTION 225 GM BTL TOPICAL SCH ×2 (07:57→23:45)
[2017-11-14] MEDS: COLLAGENASE OINT 30 GM TUBE TOPICAL SCH ×2 (07:57→21:00)
[2017-11-14 08:00] VITALS: BP 110/71; PULSE 72; RESP 16; TEMP 98; O2SAT 97
--- NOTE | 2017-11-14 09:06 | HHI.PR ---
Subjective Remarks Follow-up hemorrhagic CVA and sacral wound. Patient seen and examined, lying comfortably in bed in no apparent distress. No reports of any acute events overnight. Afebrile. Vital signs are stable. Objective Vitals Vital Signs Date Time Temp Pulse Resp B/P (MAP) Pulse Ox O2 Delivery O2 Flow Rate FiO2 11/14/17 08:00 98.0 72 16 110/71 (84) 97 11/14/17 00:00 98.6 81 20 118/69 (85) 90 11/13/17 20:00 98.7 96 20 104/69 (81) 98 11/13/17 17:37 76 112/77 (89) 11/13/17 12:42 67 104/74 (84) I/O 11/13/17 11/13/17 11/13/17 11/14/17 11/14/17 11/14/17 07:00 15:00 23:00 07:00 15:00 23:00 Intake Total 1140 ml 1610 ml 680 ml Output Total 650 ml 1325 ml 800 ml Balance 490 ml 285 ml -120 ml Intake Oral 0 ml Tube Feeding 240 ml 720 ml Tube Irrigant 600 ml 240 ml 380 ml Other 300 ml 650 ml 300 ml Output Urine Total 650 ml 1325 ml 800 ml Imaging Last Impressions Upper Extremity Ultrasound 11/06/17 0000 Signed Impressions: Service Date/Time: Monday, November 06, 2017 14:17 - CONCLUSION: Normal examination. Kelby Perez MD Pelvis CT 10/13/17 0000 Signed Impressions: Service Date/Time: Friday, October 13, 2017 12:02 - CONCLUSION: 1. Decubitus ulcer with small abscess in the right posterior perineal region measuring 3.1 x 4.6 cm. There is also a small abscess posterior and to the left of the rectum measuring 3.2 x 2.3 cm. Jann Weber MD Chest X-Ray 10/12/17 0000 Signed Impressions: Service Date/Time: October 12:18 - CONCLUSION: No acute disease. Jann Weber MD Head CT 04/25/17 0000 Signed Impressions: Service Date/Time: Tuesday, April 25, 2017 18:02 - CONCLUSION: 1. Evolving left thalamic hematoma. No new hemorrhage. Adi Quarles MD Abdomen X-Ray 04/12/17 1538 Signed Impressions: Service Date/Time: Wednesday, April 12, 2017 17:29 - CONCLUSION: Nonobstructive bowel gas pattern. Suresh Zapata MD Neck CTA 04/10/17 0000 Signed Impressions: Service Date/Time: Monday, April 10, 2017 22:28 - CONCLUSION: The internal carotid arteries are normal bilaterally. No significant atherosclerotic disease is noted. Eliud Du MD Head CTA 04/10/17 0000 Signed Impressions: Service Date/Time: Monday, April 10, 2017 22:50 - CONCLUSION: Mild dilatation of the basilar tip without discrete aneurysm. Some narrowing of the left middle cerebral branch after the bifurcation. Prominent left thalamic hemorrhage. Eliud Du MD Objective Remarks GENERAL: Well-developed, well-nourished, in no acute distress. Awake, responds minimally with head nods, tracking with eyes. SKIN: Stage IV sacral wound noted, wound vac in place. Right upper extremity swelling improved. Now left arm with swelling. HEENT: Head is normocephalic without any lesions or masses noted. Facial features are symmetric. Eyes: Conjunctivae were clear. Continue to monitor. CARDIAC: Regular rhythm, regular rate. S1/S2 are heard. 2/6 ejection, no gallops or rubs. LUNGS: Clear to auscultation bilaterally. No wheeze, rhonchi or rales. No use of accessory muscles on inspiration or expiration. ABDOMEN: Soft, nontender. Nondistended. Bowel sounds heard in all 4 quadrants. No organomegaly or masses. Negative guarding. PEG tube noted without any signs of infection, skin c/d/i, dressing intact. No erythema. EXTREMITIES: No edema, pulses are equal bilaterally. No cyanosis or clubbing NEUROLOGY: Patient is moving left upper extremity and able to move left foot. Patient unable to move right upper and lower extremity. Procedures Peg Tube placed 05/08/17 (Dr. De Los Santos) Urinary Catheter: Yes Assessment to: Continue Cruz insert reason: Stage III/IV Press Ulcer Date of Insertion: Nov 08, 2017 A/P Assessment and Plan Sacral decubitus with perineal abscess, this will need incision, drainage and debridement Wound care nurse evaluated patient and made recommendations for wound care and surgical debridement 10/10/17, Gen. surgery was consulted for sacral decubitus. Was notified on 10/11/17 that general surgery does not do sacral decubitus debridement or surgeries 10/11/17. Case was discussed with plastic surgery who are actually not health education teacher at this time. Dr. Lai was able to arrange for to evaluate the patient 10/12/17. Plastic surgery, , evaluated the patient who recommended Santyl at this time and possible debridement in the near future 10/13/17. Patient remains septic, CT of the pelvis was performed which did indicate multiple abscess in the right posterior perineal area and posterior and left of the rectum, 10/13/17. Discussed this with plastic surgery Dr. Lai, who indicated that these abscesses are 2 deep and to close to rectal mucosal for plastic surgery. He recommended consulting colorectal surgery 10/13/17. Dr. Franklin was health education teacher for colorectal surgery, consult was placed to him for evaluation. Case was discussed with him on multiple occasions. He indicates that since this is connected to a sacral decubitus and since there is no communication with the rectum, this case is not appropriate for colorectal surgery, awaiting consultation report 10/15/17. Discussed with Dr. Abdullahi. He was planning a doing debridement of today, however was unable to obtain consent from family 10/17/17. Spoke with son, consents signed for I&D of sacral wound. Debridement performed, patient tolerated well. Dressing change orders in place. 10/19/17 Santyl to wound bed. EARL Pollack. Continue BID dressing changes. 11/02/17 Ortiz saw patient with recommendations for wound vac. Awaiting superintendent house. 11/03/17 wound vac placed by superintendent house. 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 Neurosurgery evaluated patient states no surgical intervention Continue PT/OT/ST Consulted as indicated patient is stable to be discharged to rehabilitation facility Case management consulted for inpatient rehabilitation, who indicated patient is homeless, no discharge disposition to inpatient rehabilitation Palliative care was consulted for recommendations. They recommended, see evaluation which has been done. Family wants aggressive measures and placement to be performed. Psychiatry indicates that the patient does not have decision-making capacity to participate in her treatment or discharge plan. Patient to get in stretcher chair 3 times daily, will re-iterate to nursing staff Sepsis with leukocytosis, febrile illness, tachycardia, sacral decubitus with perineal abscesses, resolved Continue IV cefepime, IV Levaquin for pseudomonas double coverage Discontinued vancomycin IV/Zosyn IV/fluconazole IV, Continue monitor for infection Blood cultures negative for 5 days Urine culture no growth for 48 hours C. difficile culture was negative Influenza testing is negative wound culture from sacral wound with Pseudomonas Consulted infectious disease for recommendations for continued fever who recommended continuation of antibiotic treatment with Zosyn for 4 weeks, end date 11/10/17. However patient with acute renal sufficiency, antibiotics changed. CT of the pelvis that showed decubitus ulcer with small abscess in the right posterior perineal region and small abscess posterior and to the left rectum Dysphagia suspect secondary to intracranial bleed, Post PEG placement 05/09/17. 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 GI Prophylaxis: Prevacid via PEG tube DVT Prophylaxis: Sequential compression devices, chemical prophylaxis contraindicated secondary to intracranial hemorrhage Palliative care: Reconsulted palliative care this time in light of the patient' s worsening condition, family still wishing full aggressive management. Records were reviewed. No change in current treatment plan. Awaiting case management for discharge planning Discharge Planning Patient is stable to be discharged to rehabilitation facility. Case management assisting. Veena Calvillo Nov 14, 2017 09:06
[2017-11-14 12:00] VITALS: BP 109/77; PULSE 62; RESP 20; TEMP 98.4; O2SAT 97
[2017-11-14] MEDS: REMOVE OLD CATAPRES (CLONIDINE) PATCH T-DERMAL SCH (15:00)
[2017-11-14] MEDS: cloNIDine HCL 0.3 MG/24 HR PATCH T-DERMAL SCH (15:25)
[2017-11-14 16:00] VITALS: BP 103/74; PULSE 68; RESP 20; TEMP 98; O2SAT 99
[2017-11-14 20:00] VITALS: BP 98/69; PULSE 70; RESP 20; TEMP 99.5; O2SAT 100
[2017-11-15 04:00] VITALS: BP 108/73; PULSE 67; RESP 20; TEMP 100; O2SAT 98
[2017-11-15] MEDS: hydrALAZINE HCL 50 MG TAB PEG SCH ×3 (05:48→17:00)
[2017-11-15] MEDS: FREE WATER G-TUBE SCH ×3 (05:48→17:00)
[2017-11-15] MEDS: NIFEdipine 20 MG CAP PEG SCH ×3 (05:48→17:00)
[2017-11-15 08:15] VITALS: BP 108/78; PULSE 87; RESP 16; TEMP 98.7; O2SAT 98
[2017-11-15] MEDS: METOPROLOL TARTRATE 100 MG TAB PEG SCH ×2 (08:27→20:32)
[2017-11-15] MEDS: HYDROCHLOROTHIAZIDE 25 MG TAB PO SCH (08:27)
[2017-11-15] MEDS: LISINOPRIL 20 MG TAB PEG SCH (08:28)
[2017-11-15] MEDS: COLLAGENASE OINT 30 GM TUBE TOPICAL SCH ×2 (08:28→20:33)
[2017-11-15] MEDS: LANSOPRAZOLE SOLUTAB 30 MG TAB G-TUBE SCH (08:28)
[2017-11-15] MEDS: LACTIC ACID (AMMONIUM LACTATE) 12% LOTION 225 GM BTL TOPICAL SCH ×2 (08:28→20:32)
--- NOTE | 2017-11-15 09:26 | HHI.PR ---
Subjective Remarks Follow-up hemorrhagic CVA and sacral wound. Patient seen and examined, lying in bed comfortably. Wound care nurse at bedside, changing wound VAC. Wound assessed. Patient is afebrile. Vital signs stable. Tolerating tube feeds well. No reports of any acute events overnight. Febrile overnight, TMAX 100.0. Objective Vitals Vital Signs Date Time Temp Pulse Resp B/P (MAP) Pulse Ox O2 Delivery O2 Flow Rate FiO2 11/15/17 08:15 98.7 87 16 108/78 (88) 98 11/15/17 04:00 100.0 67 20 108/73 (85) 98 11/14/17 20:00 99.5 70 20 98/69 (79) 100 11/14/17 16:00 98.0 68 20 103/74 (84) 99 11/14/17 12:00 98.4 62 20 109/77 (88) 97 I/O 11/14/17 11/14/17 11/14/17 11/15/17 11/15/17 11/15/17 07:00 15:00 23:00 07:00 15:00 23:00 Intake Total 680 ml Output Total 800 ml 850 ml Balance -120 ml -850 ml Intake Oral 0 ml Tube Irrigant 380 ml Other 300 ml Output Urine Total 800 ml 850 ml Imaging Last Impressions Upper Extremity Ultrasound 11/06/17 0000 Signed Impressions: Service Date/Time: Monday, November 06, 2017 14:17 - CONCLUSION: Normal examination. Kelby Perez MD Pelvis CT 10/13/17 0000 Signed Impressions: Service Date/Time: Friday, October 13, 2017 12:02 - CONCLUSION: 1. Decubitus ulcer with small abscess in the right posterior perineal region measuring 3.1 x 4.6 cm. There is also a small abscess posterior and to the left of the rectum measuring 3.2 x 2.3 cm. Jann Weber MD Chest X-Ray 10/12/17 0000 Signed Impressions: Service Date/Time: October 12:18 - CONCLUSION: No acute disease. Jann Weber MD Head CT 04/25/17 0000 Signed Impressions: Service Date/Time: Tuesday, April 25, 2017 18:02 - CONCLUSION: 1. Evolving left thalamic hematoma. No new hemorrhage. Adi Quarles MD Abdomen X-Ray 04/12/17 1538 Signed Impressions: Service Date/Time: Wednesday, April 12, 2017 17:29 - CONCLUSION: Nonobstructive bowel gas pattern. Suresh Zapata MD Neck CTA 04/10/17 0000 Signed Impressions: Service Date/Time: Monday, April 10, 2017 22:28 - CONCLUSION: The internal carotid arteries are normal bilaterally. No significant atherosclerotic disease is noted. Eliud Du MD Head CTA 04/10/17 0000 Signed Impressions: Service Date/Time: Monday, April 10, 2017 22:50 - CONCLUSION: Mild dilatation of the basilar tip without discrete aneurysm. Some narrowing of the left middle cerebral branch after the bifurcation. Prominent left thalamic hemorrhage. Eliud Du MD Objective Remarks GENERAL: Well-developed, well-nourished, in no acute distress. Awake, responds minimally with head nods, tracking with eyes. SKIN: Stage IV sacral wound noted, wound vac in place. Right upper extremity swelling improved. Now left arm with swelling. HEENT: Head is normocephalic without any lesions or masses noted. Facial features are symmetric. Eyes: Conjunctivae were clear. Continue to monitor. CARDIAC: Regular rhythm, regular rate. S1/S2 are heard. 2/6 ejection, no gallops or rubs. LUNGS: Clear to auscultation bilaterally. No wheeze, rhonchi or rales. No use of accessory muscles on inspiration or expiration. ABDOMEN: Soft, nontender. Nondistended. Bowel sounds heard in all 4 quadrants. No organomegaly or masses. Negative guarding. PEG tube noted without any signs of infection, skin c/d/i, dressing intact. No erythema. EXTREMITIES: No edema, pulses are equal bilaterally. No cyanosis or clubbing NEUROLOGY: Patient is moving left upper extremity and able to move left foot. Patient unable to move right upper and lower extremity. Procedures Peg Tube placed 05/08/17 (Dr. De Los Santos) Urinary Catheter: Yes Assessment to: Continue Cruz insert reason: Stage III/IV Press Ulcer Date of Insertion: Nov 08, 2017 A/P Assessment and Plan Sacral decubitus with perineal abscess, this will need incision, drainage and debridement Wound care nurse evaluated patient and made recommendations for wound care and surgical debridement 10/10/17, Gen. surgery was consulted for sacral decubitus. Was notified on 10/11/17 that general surgery does not do sacral decubitus debridement or surgeries 10/11/17. Case was discussed with plastic surgery who are actually not section housekeeper at this time. Dr. Lai was able to arrange for to evaluate the patient 10/12/17. Plastic surgery, , evaluated the patient who recommended Santyl at this time and possible debridement in the near future 10/13/17. Patient remains septic, CT of the pelvis was performed which did indicate multiple abscess in the right posterior perineal area and posterior and left of the rectum, 10/13/17. Discussed this with plastic surgery Dr. Lai, who indicated that these abscesses are 2 deep and to close to rectal mucosal for plastic surgery. He recommended consulting colorectal surgery 10/13/17. Dr. Franklin was section housekeeper for colorectal surgery, consult was placed to him for evaluation. Case was discussed with him on multiple occasions. He indicates that since this is connected to a sacral decubitus and since there is no communication with the rectum, this case is not appropriate for colorectal surgery, awaiting consultation report 10/15/17. Discussed with Dr. Abdullahi. He was planning a doing debridement of today, however was unable to obtain consent from family 10/17/17. Spoke with son, consents signed for I&D of sacral wound. Debridement performed, patient tolerated well. Dressing change orders in place. 10/19/17 Santyl to wound bed. EARL Pollack. Continue BID dressing changes. 11/02/17 Ortiz saw patient with recommendations for wound vac. Awaiting videotape recording engineer. 11/03/17 wound vac placed by videotape recording engineer. 11/15/17 wound VAC changed today. 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 Neurosurgery evaluated patient states no surgical intervention Continue PT/OT/ST Consulted as indicated patient is stable to be discharged to rehabilitation facility Case management consulted for inpatient rehabilitation, who indicated patient is homeless, no discharge disposition to inpatient rehabilitation Palliative care was consulted for recommendations. They recommended, see evaluation which has been done. Family wants aggressive measures and placement to be performed. Psychiatry indicates that the patient does not have decision-making capacity to participate in her treatment or discharge plan. Patient to get in stretcher chair 3 times daily, will re-iterate to nursing staff Sepsis with leukocytosis, febrile illness, tachycardia, sacral decubitus with perineal abscesses, resolved Continue IV cefepime, IV Levaquin for pseudomonas double coverage Discontinued vancomycin IV/Zosyn IV/fluconazole IV, Continue monitor for infection Blood cultures negative for 5 days Urine culture no growth for 48 hours C. difficile culture was negative Influenza testing is negative wound culture from sacral wound with Pseudomonas Consulted infectious disease for recommendations for continued fever who recommended continuation of antibiotic treatment with Zosyn for 4 weeks, end date 11/10/17. However patient with acute renal sufficiency, antibiotics changed. CT of the pelvis that showed decubitus ulcer with small abscess in the right posterior perineal region and small abscess posterior and to the left rectum Dysphagia suspect secondary to intracranial bleed, Post PEG placement 05/09/17. 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 GI Prophylaxis: Prevacid via PEG tube DVT Prophylaxis: Sequential compression devices, chemical prophylaxis contraindicated secondary to intracranial hemorrhage Palliative care: Reconsulted palliative care this time in light of the patient' s worsening condition, family still wishing full aggressive management. Records were reviewed. No change in current treatment plan. Awaiting case management for discharge planning Discharge Planning Patient is stable to be discharged to rehabilitation facility. Case management assisting. Veena Calvillo Nov 15, 2017 09:26
--- NOTE | 2017-11-15 10:53 | PD.WCN.NOT ---
Neg Pressure Wound Therapy Wound Location Wound Location: Sacrum Wound Description Length: 4.9cm Width: 3.4cm Depth: 1.4cm Underminin-2 O'clock ~3cm at the deepest around 9 o'clock Wound bed appearance: 70% beefy red tissue ~10% tendon, ~10% bone and ~10% fascia Periwound appearance: Unremarkable Settings Suction: 125 mmHg, Continuous Intensity: Low Other Information: Bridged, Windowpaned, Mushroomed Foam type: Black Number of pieces: 1 Additonal Information Patient was seen by selling underwriter in [facility] 3rd floor for follow up sacrococcygeal wound. Patient was repositioned to L side for dressing removal.Patient was then turned to R side for wound assessment and dressing change.Cleansed wound with wound cleanser and pat dry.Wound description and measurements noted above.Skin prep applied to periwound stoma paste applied to distal wound to protect skin/ seal. One piece transparent drape applied to periwound bridged to L anterior thigh.1 piece black sponge applied to wound base making contact with all undermining areas bridged to L anterior thigh. Sensi trac pad applied with mushroom cap of granufoam to bridged granufoam.Vac set at 125mmhg continuous low suction no leaks noted.Patient tolerated wound care/Vac placement well. Wound VAC to be changed every MON,WEDS,FRI. Romelia Liz Nov 15, 2017 10:53
[2017-11-15 13:26] VITALS: BP 142/98
[2017-11-15 20:00] VITALS: BP 128/72; PULSE 80; RESP 17; TEMP 97.8; O2SAT 95
[2017-11-15] MEDS: LISINOPRIL 10 MG TAB PEG SCH (20:32)
[2017-11-16] MEDS: hydrALAZINE HCL 50 MG TAB PEG SCH ×4 (00:12→18:19)
[2017-11-16] MEDS: NIFEdipine 20 MG CAP PEG SCH ×4 (00:12→18:19)
[2017-11-16] MEDS: FREE WATER G-TUBE SCH ×5 (05:33→23:23)
[2017-11-16 06:35] LABS: AUTOMATED NEUTROPHIL # 0.9 TH/MM3 (1.8-7.7); BASOPHIL % 0.8 % (0.0-2.0); EOSINOPHIL # 0.1 TH/MM3 (0-0.4); EOSINOPHIL % 3.4 % (0.0-4.0); HEMATOCRIT 32.7 % (35.0-46.0); HEMOGLOBIN 10.3 GM/DL (11.6-15.3); LYMPH % 49.6 % (9.0-44.0); LYMPHOCYTE # 1.6 TH/MM3 (1.0-4.8); MEAN CELL VOLUME 85.1 FL (80.0-100.0); MEAN CORPUSCULAR HEMOGLOBIN 26.9 PG (27.0-34.0); MEAN CORPUSCULAR HGB CONC 31.6 % (32.0-36.0); MEAN PLATELET VOLUME 9.8 FL (7.0-11.0); MONO % 19.7 % (0.0-8.0); MONOCYTE # 0.7 TH/MM3 (0-0.9); NEUT % 26.5 % (16.0-70.0); PLATELET COUNT 257 TH/MM3 (150-450); RED BLOOD COUNT 3.84 MIL/MM3 (4.00-5.30); RED CELL DISTRIBUTION WIDTH 14.9 % (11.6-17.2); WHITE BLOOD COUNT 3.3 TH/MM3 (4.0-11.0)
[2017-11-16 07:50] VITALS: BP 122/86; PULSE 71; RESP 20; TEMP 97.6; O2SAT 100
[2017-11-16 08:38] LABS: LYMPHOCYTES 61 % (9-44); MONOCYTES 8 % (0-8); NEUTROPHIL # MANUAL DIFF 0.9 TH/MM3 (1.8-7.7); POLYS (SEG NEUTROPHILS) 26 % (16-70)
--- NOTE | 2017-11-16 08:44 | HHI.PR ---
Subjective Remarks Follow-up hemorrhagic CVA and sacral wound. Patient seen and, lying in bed sleeping. Awakens to voice, opens eyes and tracks. No change in patient with assessment. TMAX 100.0 overnight. CBC reviewed today, white blood cell within normal limits. Objective Vitals Vital Signs Date Time Temp Pulse Resp B/P (MAP) Pulse Ox O2 Delivery O2 Flow Rate FiO2 11/15/17 20:00 97.8 80 17 128/72 (90) 95 11/15/17 13:26 142/98 (113) I/O 11/15/17 11/15/17 11/15/17 11/16/17 11/16/17 11/16/17 07:00 15:00 23:00 07:00 15:00 23:00 Intake Total 660 ml Output Total 1650 ml 400 ml Balance -1650 ml 260 ml Tube Feeding 240 ml Other 420 ml Output Urine Total 1150 ml 400 ml Stool Total 500 ml Result Diagram: 11/16/17 0517 Imaging Last Impressions Upper Extremity Ultrasound 11/06/17 0000 Signed Impressions: Service Date/Time: Monday, November 06, 2017 14:17 - CONCLUSION: Normal examination. K. Byron Perez MD Pelvis CT 10/13/17 0000 Signed Impressions: Service Date/Time: Friday, October 13, 2017 12:02 - CONCLUSION: 1. Decubitus ulcer with small abscess in the right posterior perineal region measuring 3.1 x 4.6 cm. There is also a small abscess posterior and to the left of the rectum measuring 3.2 x 2.3 cm. Jann Weber MD Chest X-Ray 10/12/17 0000 Signed Impressions: Service Date/Time: October 12:18 - CONCLUSION: No acute disease. Jann Weber MD Head CT 04/25/17 0000 Signed Impressions: Service Date/Time: Tuesday, April 25, 2017 18:02 - CONCLUSION: 1. Evolving left thalamic hematoma. No new hemorrhage. Adi Quarles MD Abdomen X-Ray 04/12/17 1538 Signed Impressions: Service Date/Time: Wednesday, April 12, 2017 17:29 - CONCLUSION: Nonobstructive bowel gas pattern. Suresh Zapata MD Neck CTA 04/10/17 0000 Signed Impressions: Service Date/Time: Monday, April 10, 2017 22:28 - CONCLUSION: The internal carotid arteries are normal bilaterally. No significant atherosclerotic disease is noted. Eliud Du MD Head CTA 04/10/17 0000 Signed Impressions: Service Date/Time: Monday, April 10, 2017 22:50 - CONCLUSION: Mild dilatation of the basilar tip without discrete aneurysm. Some narrowing of the left middle cerebral branch after the bifurcation. Prominent left thalamic hemorrhage. Eliud Du MD Objective Remarks GENERAL: Well-developed, well-nourished, in no acute distress. Awake, responds minimally with head nods, tracking with eyes. SKIN: Stage IV sacral wound noted, wound vac in place. Right upper extremity swelling improved. Now left arm with swelling. HEENT: Head is normocephalic without any lesions or masses noted. Facial features are symmetric. Eyes: Conjunctivae were clear. Continue to monitor. CARDIAC: Regular rhythm, regular rate. S1/S2 are heard. 2/6 ejection, no gallops or rubs. LUNGS: Clear to auscultation bilaterally. No wheeze, rhonchi or rales. No use of accessory muscles on inspiration or expiration. ABDOMEN: Soft, nontender. Nondistended. Bowel sounds heard in all 4 quadrants. No organomegaly or masses. Negative guarding. PEG tube noted without any signs of infection, skin c/d/i, dressing intact. No erythema. EXTREMITIES: No edema, pulses are equal bilaterally. No cyanosis or clubbing NEUROLOGY: Patient is moving left upper extremity and able to move left foot. Patient unable to move right upper and lower extremity. Procedures Peg Tube placed 05/08/17 (Dr. De Los Santos) Date of Insertion: Nov 08, 2017 A/P Assessment and Plan Sacral decubitus with perineal abscess, this will need incision, drainage and debridement Wound care nurse evaluated patient and made recommendations for wound care and surgical debridement 10/10/17, Gen. surgery was consulted for sacral decubitus. Was notified on 10/11/17 that general surgery does not do sacral decubitus debridement or surgeries 10/11/17. Case was discussed with plastic surgery who are actually not engineering consultant at this time. Dr. Lai was able to arrange for to evaluate the patient 10/12/17. Plastic surgery, Dr. , evaluated the patient who recommended Santyl at this time and possible debridement in the near future 10/13/17. Patient remains septic, CT of the pelvis was performed which did indicate multiple abscess in the right posterior perineal area and posterior and left of the rectum, 10/13/17. Discussed this with plastic surgery Dr. Lai, who indicated that these abscesses are 2 deep and to close to rectal mucosal for plastic surgery. He recommended consulting colorectal surgery 10/13/17. Dr. Franklin was engineering consultant for colorectal surgery, consult was placed to him for evaluation. Case was discussed with him on multiple occasions. He indicates that since this is connected to a sacral decubitus and since there is no communication with the rectum, this case is not appropriate for colorectal surgery, awaiting consultation report 10/15/17. Discussed with Dr. Abdullahi. He was planning a doing debridement of today, however was unable to obtain consent from family 10/17/17. Spoke with son, consents signed for I&D of sacral wound. Debridement performed, patient tolerated well. Dressing change orders in place. 10/19/17 Santyl to wound bed. EARL Pollack. Continue BID dressing changes. 11/02/17 Ortiz saw patient with recommendations for wound vac. Awaiting special systems technician. 11/03/17 wound vac placed by special systems technician. 11/15/17 wound VAC changed today. 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 Neurosurgery evaluated patient states no surgical intervention Continue PT/OT/ST Consulted as indicated patient is stable to be discharged to rehabilitation facility Case management consulted for inpatient rehabilitation, who indicated patient is homeless, no discharge disposition to inpatient rehabilitation Palliative care was consulted for recommendations. They recommended, see evaluation which has been done. Family wants aggressive measures and placement to be performed. Psychiatry indicates that the patient does not have decision-making capacity to participate in her treatment or discharge plan. Patient to get in stretcher chair 3 times daily, will re-iterate to nursing staff Sepsis with leukocytosis, febrile illness, tachycardia, sacral decubitus with perineal abscesses, resolved Continue IV cefepime, IV Levaquin for pseudomonas double coverage Discontinued vancomycin IV/Zosyn IV/fluconazole IV, Continue monitor for infection Blood cultures negative for 5 days Urine culture no growth for 48 hours C. difficile culture was negative Influenza testing is negative wound culture from sacral wound with Pseudomonas Consulted infectious disease for recommendations for continued fever who recommended continuation of antibiotic treatment with Zosyn for 4 weeks, end date 11/10/17. However patient with acute renal sufficiency, antibiotics changed. CT of the pelvis that showed decubitus ulcer with small abscess in the right posterior perineal region and small abscess posterior and to the left rectum Dysphagia suspect secondary to intracranial bleed, Post PEG placement 05/09/17. 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 GI Prophylaxis: Prevacid via PEG tube DVT Prophylaxis: Sequential compression devices, chemical prophylaxis contraindicated secondary to intracranial hemorrhage Palliative care: Reconsulted palliative care this time in light of the patient' s worsening condition, family still wishing full aggressive management. Records were reviewed. No change in current treatment plan. Awaiting case management for discharge planning Discharge Planning Patient is stable to be discharged to rehabilitation facility. Case management assisting. Veena Calvillo Nov 16, 2017 08:44
[2017-11-16] MEDS: COLLAGENASE OINT 30 GM TUBE TOPICAL SCH ×2 (09:00→21:00)
[2017-11-16] MEDS: LANSOPRAZOLE SOLUTAB 30 MG TAB G-TUBE SCH (09:08)
[2017-11-16 09:09] LABS: BICARBONATE 29.8 MEQ/L (21.0-32.0); CALCIUM 9.2 MG/DL (8.5-10.1); CREATININE 0.47 MG/DL (0.50-1.00)
[2017-11-16] MEDS: METOPROLOL TARTRATE 100 MG TAB PEG SCH ×2 (09:09→23:23)
[2017-11-16] MEDS: HYDROCHLOROTHIAZIDE 25 MG TAB PO SCH (09:09)
[2017-11-16] MEDS: LISINOPRIL 10 MG TAB PEG SCH ×2 (09:09→23:23)
[2017-11-16] MEDS: LACTIC ACID (AMMONIUM LACTATE) 12% LOTION 225 GM BTL TOPICAL SCH ×2 (09:10→23:23)
[2017-11-16 13:00] VITALS: BP 140/92; PULSE 64
[2017-11-16 20:00] VITALS: BP 102/67; PULSE 91; RESP 20; TEMP 98.8; O2SAT 97
[2017-11-17] MEDS: NIFEdipine 20 MG CAP PEG SCH ×4 (00:36→18:28)
[2017-11-17] MEDS: hydrALAZINE HCL 50 MG TAB PEG SCH ×4 (00:37→18:28)
[2017-11-17] MEDS: FREE WATER G-TUBE SCH ×3 (05:20→18:00)
[2017-11-17 08:00] VITALS: BP 118/71; PULSE 82; RESP 16; TEMP 98.6; O2SAT 96
--- NOTE | 2017-11-17 08:16 | HHI.PR ---
Subjective Remarks Follow-up hemorrhagic CVA and sacral wound. Patient seen and examined, lying in bed comfortably. In no apparent distress. RN at bedside with no reports of any acute events overnight. No change in clinical condition. Vital signs are stable. No fevers overnight. Wound VAC change today. Objective Vitals Vital Signs Date Time Temp Pulse Resp B/P (MAP) Pulse Ox O2 Delivery O2 Flow Rate FiO2 11/16/17 20:00 98.8 91 20 102/67 (79) 97 11/16/17 13:00 64 140/92 (108) I/O 11/16/17 11/16/17 11/16/17 11/17/17 11/17/17 11/17/17 07:00 15:00 23:00 07:00 15:00 23:00 Intake Total 660 ml 1610 ml 0 ml Output Total 400 ml 700 ml 650 ml Balance 260 ml 910 ml -650 ml Intake Oral 0 ml Tube Feeding 240 ml 960 ml Tube Irrigant 150 ml Other 420 ml 500 ml Output Urine Total 400 ml 600 ml 650 ml Stool Total 100 ml Result Diagram: 11/16/17 0517 11/16/17 0517 Imaging Last Impressions Upper Extremity Ultrasound 11/06/17 0000 Signed Impressions: Service Date/Time: Monday, November 06, 2017 14:17 - CONCLUSION: Normal examination. K. Byron Perez MD Pelvis CT 10/13/17 0000 Signed Impressions: Service Date/Time: Friday, October 13, 2017 12:02 - CONCLUSION: 1. Decubitus ulcer with small abscess in the right posterior perineal region measuring 3.1 x 4.6 cm. There is also a small abscess posterior and to the left of the rectum measuring 3.2 x 2.3 cm. Jann Weber MD Chest X-Ray 10/12/17 0000 Signed Impressions: Service Date/Time: October 12:18 - CONCLUSION: No acute disease. Jann Weber MD Head CT 04/25/17 0000 Signed Impressions: Service Date/Time: Tuesday, April 25, 2017 18:02 - CONCLUSION: 1. Evolving left thalamic hematoma. No new hemorrhage. Adi Quarles MD Abdomen X-Ray 04/12/17 1538 Signed Impressions: Service Date/Time: Wednesday, April 12, 2017 17:29 - CONCLUSION: Nonobstructive bowel gas pattern. Suresh Zapata MD Neck CTA 04/10/17 0000 Signed Impressions: Service Date/Time: Monday, April 10, 2017 22:28 - CONCLUSION: The internal carotid arteries are normal bilaterally. No significant atherosclerotic disease is noted. Eliud Du MD Head CTA 04/10/17 0000 Signed Impressions: Service Date/Time: Monday, April 10, 2017 22:50 - CONCLUSION: Mild dilatation of the basilar tip without discrete aneurysm. Some narrowing of the left middle cerebral branch after the bifurcation. Prominent left thalamic hemorrhage. Eliud Du MD Objective Remarks GENERAL: Well-developed, well-nourished, in no acute distress. Awake, responds minimally with head nods, tracking with eyes. SKIN: Stage IV sacral wound noted, wound vac in place. Right upper extremity swelling improved. Now left arm with swelling. HEENT: Head is normocephalic without any lesions or masses noted. Facial features are symmetric. Eyes: Conjunctivae were clear. Continue to monitor. CARDIAC: Regular rhythm, regular rate. S1/S2 are heard. 2/6 ejection, no gallops or rubs. LUNGS: Clear to auscultation bilaterally. No wheeze, rhonchi or rales. No use of accessory muscles on inspiration or expiration. ABDOMEN: Soft, nontender. Nondistended. Bowel sounds heard in all 4 quadrants. No organomegaly or masses. Negative guarding. PEG tube noted without any signs of infection, skin c/d/i, dressing intact. No erythema. EXTREMITIES: No edema, pulses are equal bilaterally. No cyanosis or clubbing NEUROLOGY: Patient is moving left upper extremity and able to move left foot. Patient unable to move right upper and lower extremity. Procedures Peg Tube placed 05/08/17 (Dr. De Los Santos) Date of Insertion: Nov 08, 2017 A/P Assessment and Plan Sacral decubitus with perineal abscess, this will need incision, drainage and debridement Wound care nurse evaluated patient and made recommendations for wound care and surgical debridement 10/10/17, Gen. surgery was consulted for sacral decubitus. Was notified on 10/11/17 that general surgery does not do sacral decubitus debridement or surgeries 10/11/17. Case was discussed with plastic surgery who are actually not industrial organizational psychologist at this time. Dr. Lai was able to arrange for to evaluate the patient 10/12/17. Plastic surgery, , evaluated the patient who recommended Santyl at this time and possible debridement in the near future 10/13/17. Patient remains septic, CT of the pelvis was performed which did indicate multiple abscess in the right posterior perineal area and posterior and left of the rectum, 10/13/17. Discussed this with plastic surgery Dr. Lai, who indicated that these abscesses are 2 deep and to close to rectal mucosal for plastic surgery. He recommended consulting colorectal surgery 10/13/17. Dr. Franklin was industrial organizational psychologist for colorectal surgery, consult was placed to him for evaluation. Case was discussed with him on multiple occasions. He indicates that since this is connected to a sacral decubitus and since there is no communication with the rectum, this case is not appropriate for colorectal surgery, awaiting consultation report 10/15/17. Discussed with Dr. Abdullahi. He was planning a doing debridement of today, however was unable to obtain consent from family 10/17/17. Spoke with son, consents signed for I&D of sacral wound. Debridement performed, patient tolerated well. Dressing change orders in place. 10/19/17 Santyl to wound bed. EARL Pollack. Continue BID dressing changes. 11/02/17 Ortiz saw patient with recommendations for wound vac. Awaiting oil well service operator helper. 11/03/17 wound vac placed by oil well service operator helper. 11/15/17 wound VAC changed today. 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 Neurosurgery evaluated patient states no surgical intervention Continue PT/OT/ST Consulted as indicated patient is stable to be discharged to rehabilitation facility Case management consulted for inpatient rehabilitation, who indicated patient is homeless, no discharge disposition to inpatient rehabilitation Palliative care was consulted for recommendations. They recommended, see evaluation which has been done. Family wants aggressive measures and placement to be performed. Psychiatry indicates that the patient does not have decision-making capacity to participate in her treatment or discharge plan. Patient to get in stretcher chair 3 times daily, will re-iterate to nursing staff Sepsis with leukocytosis, febrile illness, tachycardia, sacral decubitus with perineal abscesses, resolved Continue IV cefepime, IV Levaquin for pseudomonas double coverage Discontinued vancomycin IV/Zosyn IV/fluconazole IV, Continue monitor for infection Blood cultures negative for 5 days Urine culture no growth for 48 hours C. difficile culture was negative Influenza testing is negative wound culture from sacral wound with Pseudomonas Consulted infectious disease for recommendations for continued fever who recommended continuation of antibiotic treatment with Zosyn for 4 weeks, end date 11/10/17. However patient with acute renal sufficiency, antibiotics changed. CT of the pelvis that showed decubitus ulcer with small abscess in the right posterior perineal region and small abscess posterior and to the left rectum Dysphagia suspect secondary to intracranial bleed, Post PEG placement 05/09/17. 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 GI Prophylaxis: Prevacid via PEG tube DVT Prophylaxis: Sequential compression devices, chemical prophylaxis contraindicated secondary to intracranial hemorrhage Palliative care: Reconsulted palliative care this time in light of the patient' s worsening condition, family still wishing full aggressive management. Records were reviewed. No change in current treatment plan. Awaiting case management for discharge planning Discharge Planning Patient is stable to be discharged to rehabilitation facility. Case management assisting. Veena Calvillo Nov 17, 2017 08:16
[2017-11-17] MEDS: LISINOPRIL 10 MG TAB PEG SCH ×2 (08:34→22:39)
[2017-11-17] MEDS: LANSOPRAZOLE SOLUTAB 30 MG TAB G-TUBE SCH (08:34)
[2017-11-17] MEDS: METOPROLOL TARTRATE 100 MG TAB PEG SCH ×2 (08:34→22:39)
[2017-11-17] MEDS: HYDROCHLOROTHIAZIDE 25 MG TAB PO SCH (08:34)
[2017-11-17] MEDS: LACTIC ACID (AMMONIUM LACTATE) 12% LOTION 225 GM BTL TOPICAL SCH ×2 (08:34→22:40)
[2017-11-17] MEDS: COLLAGENASE OINT 30 GM TUBE TOPICAL SCH (08:34)
[2017-11-17 12:00] VITALS: BP 122/84; PULSE 51; RESP 16; TEMP 96.4; O2SAT 98
[2017-11-17] MEDS: SODIUM CHLORIDE 0.9% FLUSH 10 ML FLUSH IV FLUSH PRN (12:19)
[2017-11-17 16:00] VITALS: BP 112/72; PULSE 66; RESP 16; TEMP 97; O2SAT 96
[2017-11-17 20:00] VITALS: BP 136/92; PULSE 72; RESP 20; TEMP 99.1; O2SAT 100
[2017-11-18] MEDS: NIFEdipine 20 MG CAP PEG SCH ×4 (00:27→17:40)
[2017-11-18] MEDS: hydrALAZINE HCL 50 MG TAB PEG SCH ×4 (00:27→17:40)
[2017-11-18] MEDS: FREE WATER G-TUBE SCH ×4 (05:22→17:40)
[2017-11-18 08:00] VITALS: BP 119/81; PULSE 82; RESP 18; TEMP 97.8; O2SAT 94
[2017-11-18] MEDS: LANSOPRAZOLE SOLUTAB 30 MG TAB G-TUBE SCH (10:16)
[2017-11-18] MEDS: HYDROCHLOROTHIAZIDE 25 MG TAB PO SCH (10:16)
[2017-11-18] MEDS: METOPROLOL TARTRATE 100 MG TAB PEG SCH ×2 (10:17→21:36)
[2017-11-18] MEDS: LISINOPRIL 10 MG TAB PEG SCH ×2 (10:19→21:39)
[2017-11-18] MEDS: LACTIC ACID (AMMONIUM LACTATE) 12% LOTION 225 GM BTL TOPICAL SCH ×2 (10:19→21:39)
[2017-11-18 12:00] VITALS: BP 116/84; PULSE 86; RESP 18; TEMP 99.3; O2SAT 94
--- NOTE | 2017-11-18 13:37 | HHI.PR ---
Subjective Remarks Follow-up hemorrhagic CVA and sacral regions. Patient seen and examined lying in bed asleep, awakens to voice. Denies any pain. No change in clinical condition, no reports of any acute events overnight. Objective Vitals Vital Signs Date Time Temp Pulse Resp B/P (MAP) Pulse Ox O2 Delivery O2 Flow Rate FiO2 11/18/17 12:00 99.3 86 18 116/84 (95) 94 11/18/17 08:00 97.8 82 18 119/81 (94) 94 11/17/17 20:00 99.1 72 20 136/92 (107) 100 11/17/17 16:00 97.0 66 16 112/72 (85) 96 I/O 11/17/17 11/17/17 11/17/17 11/18/17 11/18/17 11/18/17 07:00 15:00 23:00 07:00 15:00 23:00 Intake Total 0 ml 440 ml 200 ml Output Total 650 ml 2100 ml 601 ml Balance -650 ml -1660 ml -401 ml Intake Oral 0 ml 0 ml Tube Feeding 240 ml Other 200 ml 200 ml Output Urine Total 650 ml 1550 ml 600 ml Stool Total 550 ml Drainage Total 1 ml Result Diagram: 11/16/17 0517 11/16/17 0517 Imaging Last Impressions Upper Extremity Ultrasound 11/06/17 0000 Signed Impressions: Service Date/Time: Monday, November 06, 2017 14:17 - CONCLUSION: Normal examination. Kelby Perez MD Pelvis CT 10/13/17 0000 Signed Impressions: Service Date/Time: Friday, October 13, 2017 12:02 - CONCLUSION: 1. Decubitus ulcer with small abscess in the right posterior perineal region measuring 3.1 x 4.6 cm. There is also a small abscess posterior and to the left of the rectum measuring 3.2 x 2.3 cm. Jann Weber MD Chest X-Ray 10/12/17 0000 Signed Impressions: Service Date/Time: October 12:18 - CONCLUSION: No acute disease. Jann Weber MD Head CT 04/25/17 0000 Signed Impressions: Service Date/Time: Tuesday, April 25, 2017 18:02 - CONCLUSION: 1. Evolving left thalamic hematoma. No new hemorrhage. Adi Quarles MD Abdomen X-Ray 04/12/17 1538 Signed Impressions: Service Date/Time: Wednesday, April 12, 2017 17:29 - CONCLUSION: Nonobstructive bowel gas pattern. Suresh Zapata MD Neck CTA 04/10/17 0000 Signed Impressions: Service Date/Time: Monday, April 10, 2017 22:28 - CONCLUSION: The internal carotid arteries are normal bilaterally. No significant atherosclerotic disease is noted. Eliud Du MD Head CTA 04/10/17 0000 Signed Impressions: Service Date/Time: Monday, April 10, 2017 22:50 - CONCLUSION: Mild dilatation of the basilar tip without discrete aneurysm. Some narrowing of the left middle cerebral branch after the bifurcation. Prominent left thalamic hemorrhage. Eliud Du MD Objective Remarks GENERAL: Well-developed, well-nourished, in no acute distress. Awake, responds minimally with head nods, tracking with eyes. SKIN: Stage IV sacral wound noted, wound vac in place. Right upper extremity swelling improved. Now left arm with swelling. HEENT: Head is normocephalic without any lesions or masses noted. Facial features are symmetric. Eyes: Conjunctivae were clear. Continue to monitor. CARDIAC: Regular rhythm, regular rate. S1/S2 are heard. 2/6 ejection, no gallops or rubs. LUNGS: Clear to auscultation bilaterally. No wheeze, rhonchi or rales. No use of accessory muscles on inspiration or expiration. ABDOMEN: Soft, nontender. Nondistended. Bowel sounds heard in all 4 quadrants. No organomegaly or masses. Negative guarding. PEG tube noted without any signs of infection, skin c/d/i, dressing intact. No erythema. EXTREMITIES: No edema, pulses are equal bilaterally. No cyanosis or clubbing NEUROLOGY: Patient is moving left upper extremity and able to move left foot. Patient unable to move right upper and lower extremity. Procedures Peg Tube placed 05/08/17 (Dr. De Los Santos) Urinary Catheter: Yes Assessment to: Continue Cruz insert reason: Stage III/IV Press Ulcer Date of Insertion: Nov 08, 2017 A/P Assessment and Plan Sacral decubitus with perineal abscess, this will need incision, drainage and debridement Wound care nurse evaluated patient and made recommendations for wound care and surgical debridement 10/10/17, Gen. surgery was consulted for sacral decubitus. Was notified on 10/11/17 that general surgery does not do sacral decubitus debridement or surgeries 10/11/17. Case was discussed with plastic surgery who are actually not leadership development consultant at this time. Dr. Lai was able to arrange for to evaluate the patient 10/12/17. Plastic surgery, , evaluated the patient who recommended Santyl at this time and possible debridement in the near future 10/13/17. Patient remains septic, CT of the pelvis was performed which did indicate multiple abscess in the right posterior perineal area and posterior and left of the rectum, 10/13/17. Discussed this with plastic surgery Dr. Lai, who indicated that these abscesses are 2 deep and to close to rectal mucosal for plastic surgery. He recommended consulting colorectal surgery 10/13/17. Dr. Franklin was leadership development consultant for colorectal surgery, consult was placed to him for evaluation. Case was discussed with him on multiple occasions. He indicates that since this is connected to a sacral decubitus and since there is no communication with the rectum, this case is not appropriate for colorectal surgery, awaiting consultation report 10/15/17. Discussed with Dr. Abdullahi. He was planning a doing debridement of today, however was unable to obtain consent from family 10/17/17. Spoke with son, consents signed for I&D of sacral wound. Debridement performed, patient tolerated well. Dressing change orders in place. 10/19/17 Santyl to wound bed. EARL Pollack. Continue BID dressing changes. 11/02/17 Ortiz saw patient with recommendations for wound vac. Awaiting workforce advisor. 11/03/17 wound vac placed by workforce advisor. 11/15/17 wound VAC changed today. 11/17/17 wound VAC changed today. 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 Neurosurgery evaluated patient states no surgical intervention Continue PT/OT/ST Consulted as indicated patient is stable to be discharged to rehabilitation facility Case management consulted for inpatient rehabilitation, who indicated patient is homeless, no discharge disposition to inpatient rehabilitation Palliative care was consulted for recommendations. They recommended, see evaluation which has been done. Family wants aggressive measures and placement to be performed. Psychiatry indicates that the patient does not have decision-making capacity to participate in her treatment or discharge plan. Patient to get in stretcher chair 3 times daily, will re-iterate to nursing staff Sepsis with leukocytosis, febrile illness, tachycardia, sacral decubitus with perineal abscesses, resolved Continue IV cefepime, IV Levaquin for pseudomonas double coverage Discontinued vancomycin IV/Zosyn IV/fluconazole IV, Continue monitor for infection Blood cultures negative for 5 days Urine culture no growth for 48 hours C. difficile culture was negative Influenza testing is negative wound culture from sacral wound with Pseudomonas Consulted infectious disease for recommendations for continued fever who recommended continuation of antibiotic treatment with Zosyn for 4 weeks, end date 11/10/17. However patient with acute renal sufficiency, antibiotics changed. CT of the pelvis that showed decubitus ulcer with small abscess in the right posterior perineal region and small abscess posterior and to the left rectum Dysphagia suspect secondary to intracranial bleed Post PEG placement 05/09/17. 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 GI Prophylaxis: Prevacid via PEG tube DVT Prophylaxis: Sequential compression devices, chemical prophylaxis contraindicated secondary to intracranial hemorrhage Palliative care: Reconsulted palliative care this time in light of the patient' s worsening condition, family still wishing full aggressive management. Records were reviewed. No change in current treatment plan. Awaiting case management for discharge planning Discharge Planning Patient is stable to be discharged to rehabilitation facility. Case management assisting. Veena Calvillo Nov 18, 2017 13:37
[2017-11-18 16:00] VITALS: BP 106/74; PULSE 62; RESP 18; TEMP 97.7; O2SAT 94
[2017-11-18 20:00] VITALS: BP 102/65; PULSE 88; RESP 16; TEMP 99.5; O2SAT 99
[2017-11-19] VITALS: BP 100/64; PULSE 70; RESP 16; TEMP 99.3; O2SAT 96
[2017-11-19] MEDS: NIFEdipine 20 MG CAP PEG SCH ×4 (00:30→17:32)
[2017-11-19] MEDS: hydrALAZINE HCL 50 MG TAB PEG SCH ×4 (00:30→17:33)
[2017-11-19] MEDS: FREE WATER G-TUBE SCH ×4 (00:31→17:33)
[2017-11-19 08:00] VITALS: BP 98/64; PULSE 77; RESP 16; TEMP 96.7; O2SAT 98
[2017-11-19] MEDS: LANSOPRAZOLE SOLUTAB 30 MG TAB G-TUBE SCH (08:18)
[2017-11-19] MEDS: HYDROCHLOROTHIAZIDE 25 MG TAB PO SCH (08:18)
[2017-11-19] MEDS: LISINOPRIL 10 MG TAB PEG SCH ×2 (08:19→21:32)
[2017-11-19] MEDS: LACTIC ACID (AMMONIUM LACTATE) 12% LOTION 225 GM BTL TOPICAL SCH ×2 (08:19→21:33)
[2017-11-19] MEDS: METOPROLOL TARTRATE 100 MG TAB PEG SCH ×2 (08:19→21:32)
--- NOTE | 2017-11-19 09:46 | HHI.PR ---
Subjective Remarks Follow-up hemorrhagic CVA and sacral wound. Patient seen and examined lying in bed comfortably in no apparent distress. No change in clinical condition. Vital signs are stable afebrile overnight. Tolerating to pain. No reports of any acute events overnight Objective Vitals Vital Signs Date Time Temp Pulse Resp B/P (MAP) Pulse Ox O2 Delivery O2 Flow Rate FiO2 11/19/17 00:00 99.3 70 16 100/64 (76) 96 11/18/17 20:00 99.5 88 16 102/65 (77) 99 11/18/17 16:00 97.7 62 18 106/74 (85) 94 11/18/17 12:00 99.3 86 18 116/84 (95) 94 I/O 11/18/17 11/18/17 11/18/17 11/19/17 11/19/17 11/19/17 07:00 15:00 23:00 07:00 15:00 23:00 Intake Total 200 ml 0 ml Output Total 601 ml 1120 ml 400 ml 500 ml Balance -401 ml -1120 ml -400 ml -500 ml Intake Oral 0 ml 0 ml Other 200 ml Output Urine Total 600 ml 1120 ml 300 ml 450 ml Stool Total 100 ml 50 ml Drainage Total 1 ml Result Diagram: 11/16/17 0517 11/16/17 0517 Imaging Last Impressions Upper Extremity Ultrasound 11/06/17 0000 Signed Impressions: Service Date/Time: Monday, November 06, 2017 14:17 - CONCLUSION: Normal examination. K. Byron Perez MD Pelvis CT 10/13/17 0000 Signed Impressions: Service Date/Time: Friday, October 13, 2017 12:02 - CONCLUSION: 1. Decubitus ulcer with small abscess in the right posterior perineal region measuring 3.1 x 4.6 cm. There is also a small abscess posterior and to the left of the rectum measuring 3.2 x 2.3 cm. Jann Weber MD Chest X-Ray 10/12/17 0000 Signed Impressions: Service Date/Time: October 12:18 - CONCLUSION: No acute disease. Jann Weber MD Head CT 04/25/17 0000 Signed Impressions: Service Date/Time: Tuesday, April 25, 2017 18:02 - CONCLUSION: 1. Evolving left thalamic hematoma. No new hemorrhage. Adi Quarles MD Abdomen X-Ray 04/12/17 1538 Signed Impressions: Service Date/Time: Wednesday, April 12, 2017 17:29 - CONCLUSION: Nonobstructive bowel gas pattern. Suresh Zapata MD Neck CTA 04/10/17 0000 Signed Impressions: Service Date/Time: Monday, April 10, 2017 22:28 - CONCLUSION: The internal carotid arteries are normal bilaterally. No significant atherosclerotic disease is noted. Eliud Du MD Head CTA 04/10/17 0000 Signed Impressions: Service Date/Time: Monday, April 10, 2017 22:50 - CONCLUSION: Mild dilatation of the basilar tip without discrete aneurysm. Some narrowing of the left middle cerebral branch after the bifurcation. Prominent left thalamic hemorrhage. Eliud Du MD Objective Remarks GENERAL: Well-developed, well-nourished, in no acute distress. Awake, responds minimally with head nods, tracking with eyes. SKIN: Stage IV sacral wound noted, wound vac in place. Right upper extremity swelling improved. Now left arm with swelling. HEENT: Head is normocephalic without any lesions or masses noted. Facial features are symmetric. Eyes: Conjunctivae were clear. Continue to monitor. CARDIAC: Regular rhythm, regular rate. S1/S2 are heard. 2/6 ejection, no gallops or rubs. LUNGS: Clear to auscultation bilaterally. No wheeze, rhonchi or rales. No use of accessory muscles on inspiration or expiration. ABDOMEN: Soft, nontender. Nondistended. Bowel sounds heard in all 4 quadrants. No organomegaly or masses. Negative guarding. PEG tube noted without any signs of infection, skin c/d/i, dressing intact. No erythema. EXTREMITIES: No edema, pulses are equal bilaterally. No cyanosis or clubbing NEUROLOGY: Patient is moving left upper extremity and able to move left foot. Patient unable to move right upper and lower extremity. Procedures Peg Tube placed 05/08/17 (Dr. De Los Santos) Urinary Catheter: Yes Assessment to: Continue Cruz insert reason: Stage III/IV Press Ulcer Date of Insertion: Nov 08, 2017 A/P Assessment and Plan Sacral decubitus with perineal abscess, this will need incision, drainage and debridement Wound care nurse evaluated patient and made recommendations for wound care and surgical debridement 10/10/17, Gen. surgery was consulted for sacral decubitus. Was notified on 10/11/17 that general surgery does not do sacral decubitus debridement or surgeries 10/11/17. Case was discussed with plastic surgery who are actually not cotton baler at this time. Dr. Lai was able to arrange for to evaluate the patient 10/12/17. Plastic surgery, , evaluated the patient who recommended Santyl at this time and possible debridement in the near future 10/13/17. Patient remains septic, CT of the pelvis was performed which did indicate multiple abscess in the right posterior perineal area and posterior and left of the rectum, 10/13/17. Discussed this with plastic surgery Dr. Lai, who indicated that these abscesses are 2 deep and to close to rectal mucosal for plastic surgery. He recommended consulting colorectal surgery 10/13/17. Dr. Franklin was cotton baler for colorectal surgery, consult was placed to him for evaluation. Case was discussed with him on multiple occasions. He indicates that since this is connected to a sacral decubitus and since there is no communication with the rectum, this case is not appropriate for colorectal surgery, awaiting consultation report 10/15/17. Discussed with Dr. Abdullahi. He was planning a doing debridement of today, however was unable to obtain consent from family 10/17/17. Spoke with son, consents signed for I&D of sacral wound. Debridement performed, patient tolerated well. Dressing change orders in place. 10/19/17 Santyl to wound bed. EARL Pollack. Continue BID dressing changes. 11/02/17 Ortiz saw patient with recommendations for wound vac. Awaiting data security coordinator. 11/03/17 wound vac placed by data security coordinator. 11/15/17 wound VAC changed today. 11/17/17 wound VAC changed today. 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 Neurosurgery evaluated patient states no surgical intervention Continue PT/OT/ST Consulted as indicated patient is stable to be discharged to rehabilitation facility Case management consulted for inpatient rehabilitation, who indicated patient is homeless, no discharge disposition to inpatient rehabilitation Palliative care was consulted for recommendations. They recommended, see evaluation which has been done. Family wants aggressive measures and placement to be performed. Psychiatry indicates that the patient does not have decision-making capacity to participate in her treatment or discharge plan. Patient to get in stretcher chair 3 times daily, will re-iterate to nursing staff Sepsis with leukocytosis, febrile illness, tachycardia, sacral decubitus with perineal abscesses, resolved Continue IV cefepime, IV Levaquin for pseudomonas double coverage Discontinued vancomycin IV/Zosyn IV/fluconazole IV, Continue monitor for infection Blood cultures negative for 5 days Urine culture no growth for 48 hours C. difficile culture was negative Influenza testing is negative wound culture from sacral wound with Pseudomonas Consulted infectious disease for recommendations for continued fever who recommended continuation of antibiotic treatment with Zosyn for 4 weeks, end date 11/10/17. However patient with acute renal sufficiency, antibiotics changed. CT of the pelvis that showed decubitus ulcer with small abscess in the right posterior perineal region and small abscess posterior and to the left rectum Dysphagia suspect secondary to intracranial bleed Post PEG placement 05/09/17. 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 GI Prophylaxis: Prevacid via PEG tube DVT Prophylaxis: Sequential compression devices, chemical prophylaxis contraindicated secondary to intracranial hemorrhage Palliative care: Reconsulted palliative care this time in light of the patient' s worsening condition, family still wishing full aggressive management. Records were reviewed. No change in current treatment plan. Awaiting case management for discharge planning Discharge Planning Patient is stable to be discharged to rehabilitation facility. Case management assisting. Veena Calvillo Nov 19, 2017 09:46
[2017-11-19 12:00] VITALS: BP 102/70; PULSE 65; RESP 14; TEMP 97.6; O2SAT 100
[2017-11-19 16:00] VITALS: BP 114/83; PULSE 66; RESP 14; TEMP 95.7; O2SAT 92
[2017-11-19 21:10] VITALS: BP 106/65; PULSE 102; RESP 16; TEMP 97.9; O2SAT 100
[2017-11-19 23:30] VITALS: BP 120/79; PULSE 90; RESP 18; TEMP 98; O2SAT 96
[2017-11-20] MEDS: NIFEdipine 20 MG CAP PEG SCH ×4 (00:31→18:00)
[2017-11-20] MEDS: FREE WATER G-TUBE SCH ×4 (00:31→18:00)
[2017-11-20] MEDS: hydrALAZINE HCL 50 MG TAB PEG SCH ×4 (00:31→18:00)
[2017-11-20 08:00] VITALS: BP 99/70; PULSE 59; RESP 18; TEMP 97.3; O2SAT 100
[2017-11-20] MEDS: METOPROLOL TARTRATE 100 MG TAB PEG SCH ×2 (09:00→20:41)
[2017-11-20] MEDS: LISINOPRIL 10 MG TAB PEG SCH ×2 (09:00→20:46)
[2017-11-20] MEDS: HYDROCHLOROTHIAZIDE 25 MG TAB PO SCH (09:00)
--- NOTE | 2017-11-20 10:21 | HHI.PR ---
Subjective Remarks Follow-up hemorrhagic CVA and sacral wound. Patient seen and examined, lying in bed comfortably in no apparent distress. Surgeon at bedside, assessing wound VAC. No reports of any acute events overnight. Vital signs are stable. Afebrile. Objective Vitals Vital Signs Date Time Temp Pulse Resp B/P (MAP) Pulse Ox O2 Delivery O2 Flow Rate FiO2 11/19/17 23:30 98.0 90 18 120/79 (93) 96 11/19/17 21:10 97.9 102 16 106/65 (79) 100 11/19/17 16:00 95.7 66 14 114/83 (93) 92 11/19/17 12:00 97.6 65 14 102/70 (81) 100 I/O 11/19/17 11/19/17 11/19/17 11/20/17 11/20/17 11/20/17 07:00 15:00 23:00 07:00 15:00 23:00 Intake Total 1420 ml Output Total 500 ml 1550 ml Balance -500 ml -130 ml Tube Feeding 920 ml Other 500 ml Output Urine Total 450 ml 1300 ml Stool Total 50 ml 250 ml Result Diagram: 11/16/17 0517 11/16/17 0517 Imaging Last Impressions Upper Extremity Ultrasound 11/06/17 0000 Signed Impressions: Service Date/Time: Monday, November 06, 2017 14:17 - CONCLUSION: Normal examination. Kelby Perez MD Pelvis CT 10/13/17 0000 Signed Impressions: Service Date/Time: Friday, October 13, 2017 12:02 - CONCLUSION: 1. Decubitus ulcer with small abscess in the right posterior perineal region measuring 3.1 x 4.6 cm. There is also a small abscess posterior and to the left of the rectum measuring 3.2 x 2.3 cm. Jann Weber MD Chest X-Ray 10/12/17 0000 Signed Impressions: Service Date/Time: October 12:18 - CONCLUSION: No acute disease. Jann Weber MD Head CT 04/25/17 0000 Signed Impressions: Service Date/Time: Tuesday, April 25, 2017 18:02 - CONCLUSION: 1. Evolving left thalamic hematoma. No new hemorrhage. Adi Quarles MD Abdomen X-Ray 04/12/17 1538 Signed Impressions: Service Date/Time: Wednesday, April 12, 2017 17:29 - CONCLUSION: Nonobstructive bowel gas pattern. Suresh Zapata MD Neck CTA 04/10/17 0000 Signed Impressions: Service Date/Time: Monday, April 10, 2017 22:28 - CONCLUSION: The internal carotid arteries are normal bilaterally. No significant atherosclerotic disease is noted. Eliud Du MD Head CTA 04/10/17 0000 Signed Impressions: Service Date/Time: Monday, April 10, 2017 22:50 - CONCLUSION: Mild dilatation of the basilar tip without discrete aneurysm. Some narrowing of the left middle cerebral branch after the bifurcation. Prominent left thalamic hemorrhage. Eliud Du MD Objective Remarks GENERAL: Well-developed, well-nourished, in no acute distress. Awake, responds minimally with head nods, tracking with eyes. SKIN: Stage IV sacral wound noted, wound vac in place. Right upper extremity swelling improved. Now left arm with swelling. HEENT: Head is normocephalic without any lesions or masses noted. Facial features are symmetric. Eyes: Conjunctivae were clear. Continue to monitor. CARDIAC: Regular rhythm, regular rate. S1/S2 are heard. 2/6 ejection, no gallops or rubs. LUNGS: Clear to auscultation bilaterally. No wheeze, rhonchi or rales. No use of accessory muscles on inspiration or expiration. ABDOMEN: Soft, nontender. Nondistended. Bowel sounds heard in all 4 quadrants. No organomegaly or masses. Negative guarding. PEG tube noted without any signs of infection, skin c/d/i, dressing intact. No erythema. EXTREMITIES: No edema, pulses are equal bilaterally. No cyanosis or clubbing NEUROLOGY: Patient is moving left upper extremity and able to move left foot. Patient unable to move right upper and lower extremity. Procedures Peg Tube placed 05/08/17 (Dr. De Los Santos) Assessment to: Continue Cruz insert reason: Stage III/IV Press Ulcer Date of Insertion: Nov 08, 2017 A/P Assessment and Plan Sacral decubitus with perineal abscess, this will need incision, drainage and debridement Wound care nurse evaluated patient and made recommendations for wound care and surgical debridement 10/10/17, Gen. surgery was consulted for sacral decubitus. Was notified on 10/11/17 that general surgery does not do sacral decubitus debridement or surgeries 10/11/17. Case was discussed with plastic surgery who are actually not home demonstration agent at this time. Dr. Lai was able to arrange for to evaluate the patient 10/12/17. Plastic surgery, , evaluated the patient who recommended Santyl at this time and possible debridement in the near future 10/13/17. Patient remains septic, CT of the pelvis was performed which did indicate multiple abscess in the right posterior perineal area and posterior and left of the rectum, 10/13/17. Discussed this with plastic surgery Dr. Lai, who indicated that these abscesses are 2 deep and to close to rectal mucosal for plastic surgery. He recommended consulting colorectal surgery 10/13/17. Dr. Franklin was home demonstration agent for colorectal surgery, consult was placed to him for evaluation. Case was discussed with him on multiple occasions. He indicates that since this is connected to a sacral decubitus and since there is no communication with the rectum, this case is not appropriate for colorectal surgery, awaiting consultation report 10/15/17. Discussed with Dr. Abdullahi. He was planning a doing debridement of today, however was unable to obtain consent from family 10/17/17. Spoke with son, consents signed for I&D of sacral wound. Debridement performed, patient tolerated well. Dressing change orders in place. 10/19/17 Santyl to wound bed. EARL Pollack. Continue BID dressing changes. 11/02/17 Ortiz saw patient with recommendations for wound vac. Awaiting college athlete. 11/03/17 wound vac placed by college athlete. 11/15/17 wound VAC changed today. 11/17/17 wound VAC changed today. 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 Neurosurgery evaluated patient states no surgical intervention Continue PT/OT/ST Consulted as indicated patient is stable to be discharged to rehabilitation facility Case management consulted for inpatient rehabilitation, who indicated patient is homeless, no discharge disposition to inpatient rehabilitation Palliative care was consulted for recommendations. They recommended, see evaluation which has been done. Family wants aggressive measures and placement to be performed. Psychiatry indicates that the patient does not have decision-making capacity to participate in her treatment or discharge plan. Patient to get in stretcher chair 3 times daily, will re-iterate to nursing staff Sepsis with leukocytosis, febrile illness, tachycardia, sacral decubitus with perineal abscesses, resolved Continue IV cefepime, IV Levaquin for pseudomonas double coverage Discontinued vancomycin IV/Zosyn IV/fluconazole IV, Continue monitor for infection Blood cultures negative for 5 days Urine culture no growth for 48 hours C. difficile culture was negative Influenza testing is negative wound culture from sacral wound with Pseudomonas Consulted infectious disease for recommendations for continued fever who recommended continuation of antibiotic treatment with Zosyn for 4 weeks, end date 11/10/17. However patient with acute renal sufficiency, antibiotics changed. CT of the pelvis that showed decubitus ulcer with small abscess in the right posterior perineal region and small abscess posterior and to the left rectum Dysphagia suspect secondary to intracranial bleed Post PEG placement 05/09/17. 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 GI Prophylaxis: Prevacid via PEG tube DVT Prophylaxis: Sequential compression devices, chemical prophylaxis contraindicated secondary to intracranial hemorrhage Palliative care: Reconsulted palliative care this time in light of the patient' s worsening condition, family still wishing full aggressive management. Records were reviewed. No change in current treatment plan. Awaiting case management for discharge planning Discharge Planning Patient is stable to be discharged to rehabilitation facility. Case management assisting. Veena Calvillo Nov 20, 2017 10:21
[2017-11-20] MEDS: LANSOPRAZOLE SOLUTAB 30 MG TAB G-TUBE SCH (10:52)
[2017-11-20] MEDS: LACTIC ACID (AMMONIUM LACTATE) 12% LOTION 225 GM BTL TOPICAL SCH ×2 (10:58→20:46)
[2017-11-20 15:12] VITALS: BP 107/72; PULSE 80; RESP 16; TEMP 97.4; O2SAT 98
--- NOTE | 2017-11-20 15:37 | HHI.HCPN ---
Reason for visit a. To assist with evaluation and management of symptoms including: dysphagia , aphasia, hemiparesis, pain. b. To assist medical decision maker(s) with: better understanding of current medical conditions; weighing benefits/burdens of medical treatment options; making medical treatment decisions. Subjective/Interval History 62-year-old female status post hemorrhagic CVA, with long hospitalization and sacral wound status post surgical debridement 10/17/17. Wound VAC in place. Clinically stable. She has minimal response to direction. She is arousable and will intermittently nod head to questions, tracks with eyes, has right hemiparesis with movement of left arm and left foot. * Laboratory: 11/16/17 WBC 3.3, Hgb 10.3, HCT 32.7, PLT 257, sodium 139, potassium 3.5, BUN 15, creatinine 0.47 She has a son, Henri Birmingham ([phone]) and a daughter Geri Wallace ( number reported as disconnected [phone]). Her 2 children serve as her healthcare proxy's. They continue to want full aggressive care with full code resuscitation. Placement has been difficult without a funding source. Patient had previously been homeless for 10 years prior to hospitalization. SSI/BUSH[employer] application is pending. Son had volunteered to be the payee to allow for mother 's placement however SSI would not allow the son to be payee as they felt there was some chance of fraud. Patient's brother, King Elsy ([phone]) is willing to be the payee. Pending contact from Social Security for interview with Mr. Chin. . Family/friend interactions Spoke with spring encaser, Gerardo Aldridge today regarding progress. He states he has a call out to [facility] [employer] for update on status of application in an effort to complete placement of patient in long-term care. No family at bedside. Goals remain aggressive. . Advance Directives Living Will: Never completed Health Care Surrogate: Never completed Durable Power of Systems Software Designer: Never completed Objective Vital Signs Date Time Temp Pulse Resp B/P (MAP) Pulse Ox O2 Delivery O2 Flow Rate FiO2 11/20/17 08:00 97.3 59 18 99/70 (80) 100 11/19/17 23:30 98.0 90 18 120/79 (93) 96 11/19/17 21:10 97.9 102 16 106/65 (79) 100 11/19/17 16:00 95.7 66 14 114/83 (93) 92 Intake & Output 11/20/17 11/20/17 07:00 19:00 Output Total 875 ml Balance -875 ml Output Urine Total 875 ml Physical Exam CONSTITUTIONAL/GENERAL: This is an adequately nourished patient, in no apparent distress. SKIN: No jaundice, rashes, or lesions. Sacral wound s/p debridement, wound VAC intact. Skin temperature appropriate. Not diaphoretic. HEAD: Atraumatic. Normocephalic. EYES: Pupils equal and round and reactive. No scleral icterus. No injection or drainage. NECK: Trachea midline. Supple, nontender. CARDIOVASCULAR: Regular rate and rhythm without murmurs, gallops, or rubs. No JVD. Peripheral pulses symmetric. RESPIRATORY/CHEST: Symmetric, unlabored respirations. Clear to auscultation. Breath sounds equal bilaterally. No wheezes, rales, or rhonchi. GASTROINTESTINAL: Abdomen soft, non-tender, nondistended. No hepato-splenomegaly , or palpable masses. No guarding. Bowel sounds present. PEG to LUQ without redness or drainage. GENITOURINARY: Without palpable bladder distension. Cruz catheter in place. MUSCULOSKELETAL: Bilateral foot drop, no edema, has podus boots in place. NEUROLOGICAL: Arouses to verbal stimuli. Right sided hemiparesis, flaccid. Able to squeeze hand with left, some movement of left foot noted. Attempts to mouth words in response to questions. PSYCHIATRIC: No obvious anxiety/depression on my visit . Diagnostic Tests Laboratory Laboratory Tests Test 11/18/17 14:12 Prealbumin 20 MG/DL (20-40) Result Diagram: 11/16/1751611/16/1717 Microbiology Date/Time Source Procedure Growth Status 10/10/17 08:10 Blood Peripheral Aerobic Blood Culture - Final NO GROWTH IN 5 DAYS Complete 10/10/17 08:10 Blood Peripheral Anaerobic Blood Culture - Final NO GROWTH IN 5 DAYS Complete 10/14/17 13:30 Nasal Aspirate Influenza Types A,B Antigen ([place]) - Final NEGATIVE FOR FLU A AND B ANTIGEN.... Complete 10/10/17 22:00 Urine Clean Catch Urine Culture - Final NO GROWTH IN 48 HOURS. Complete 10/13/17 10:00 Wound Skin Gram Stain - Final Complete 10/13/17 10:00 Wound Culture - Final Pseudomonas Aeruginosa Complete . Imaging Last Impressions Upper Extremity Ultrasound 11/06/17 0000 Signed Impressions: Service Date/Time: Monday, November 06, 2017 14:17 - CONCLUSION: Normal examination. Kelby Perez MD Pelvis CT 10/13/17 0000 Signed Impressions: Service Date/Time: Friday, October 13, 2017 12:02 - CONCLUSION: 1. Decubitus ulcer with small abscess in the right posterior perineal region measuring 3.1 x 4.6 cm. There is also a small abscess posterior and to the left of the rectum measuring 3.2 x 2.3 cm. Jann Weber MD Chest X-Ray 10/12/17 0000 Signed Impressions: Service Date/Time: October 12:18 - CONCLUSION: No acute disease. Jann Weber MD Head CT 04/25/17 0000 Signed Impressions: Service Date/Time: Tuesday, April 25, 2017 18:02 - CONCLUSION: 1. Evolving left thalamic hematoma. No new hemorrhage. Adi Quarles MD Abdomen X-Ray 04/12/17 1538 Signed Impressions: Service Date/Time: Wednesday, April 12, 2017 17:29 - CONCLUSION: Nonobstructive bowel gas pattern. Suresh Zapata MD Neck CTA 04/10/17 0000 Signed Impressions: Service Date/Time: Monday, April 10, 2017 22:28 - CONCLUSION: The internal carotid arteries are normal bilaterally. No significant atherosclerotic disease is noted. Eliud Du MD Head CTA 04/10/17 0000 Signed Impressions: Service Date/Time: Monday, April 10, 2017 22:50 - CONCLUSION: Mild dilatation of the basilar tip without discrete aneurysm. Some narrowing of the left middle cerebral branch after the bifurcation. Prominent left thalamic hemorrhage. Eliud Du MD Procedures 05/08/17: PEG placement . Assessment and Plan Disease Oriented Problem List: (1) Intracranial hemorrhage Comment: left thalamic hemorrhage, due to hypertensive emergency. (2) Malignant hypertension Comment: complicated by non compliance with medication due to delusion and paranoia (3) Unspecified psychosis (4) Delusional disorder (5) Hemiparesis Comment: right (6) Psychosis Symptom Scale: (1) Dysphagia 0-10 Scale: Unable to quantify (2) Aphasia 0-10 Scale: Unable to quantify (3) Hemiparesis 0-10 Scale: Unable to quantify Pertinent Non-Medical Issues Psychosocial:hx of delusions, paranoia, bruno act, non-compliance, now with thalamic stroke. Pt also is pending SSI. Spiritual:anglican Legal:If not capacitated, surviving children, pt's daughter and son would be health care proxy. Son appears to be difficult to reach, per social sciences lecturer. Ethical issues impacting care:none at this time. Important Contacts Aleena Wallace [phone]. Number is currently disconnected. Henri Birmingham [phone], . Prognosis Pt with psychiatric hx of delusions, paranoia, has extensive hospital stay of 160 plus days after a left thalamic stroke. Pt is peg tube dependent, with hemiperisis; but has been relatively stable since April. She is at risk of recurrent hospitalization and setbacks. However given no recent pneumonia episodes, or major complications, I feel given pt continue tube feedings, prognosis is > 6 months. Albumin is 3.6 since last check on 09/07/2017 Code Status: Full Code Plan PLAN: Legal decision maker: She has 2 children who serve as joint proxy. Goals: Aggressive. CODE STATUS: FULL CODE SYMPTOMS: * Dysphasia: Repeatedly failed swallow evaluation, ST signed off. PEG tube placed, tolerating bolus feedings of 240 mL 3 times a day and 160 mL at at bedtime. Weight has been steady between 66-68 kg. * Aphasia: Secondary to left thalamus stroke. Able to nod her head intermittently to questions, but not consistently. * Right hemiparesis: Continues physical therapy. * Pain: Likely source of pain is bedbound status, invasive lines, large tunnelled sacral decubitus, wound VAC Patient remains a placement issue pending Social Security follow-up to establish payee to arrange placement. Palliative care will continue to follow the patient during hospital course as condition evolves, to assist patient/decision-maker with understanding of their medical conditions, weighing benefits/burdens of treatment options, for clarification of goals of treatment. Additionally will assist with any symptoms of palliative concern. . Attestation To help prompt me to consider important information that might be impacting today's encounter and assessment, information from prior notes written by myself or my colleagues may have been "brought forward" into today's note. My signature on this note, however, is an attestation that I personally performed the exam, history, and/or decision-making noted today, and, unless otherwise indicated, the interactions with patient, family, and staff as well as the review of records all occurred today. I also attest that the listed assessment and stated plan reflect my best clinical judgment today based on the combination of historical information, prior notes, and today's exam/ interactions. When time spent is documented, it refers only to time spent today by the signer, or if indicated, combined time spent today by collaborating physician/nurse practitioner. . Suzi Aldridge Nov 20, 2017 15:37
[2017-11-20 20:00] VITALS: BP 117/79; PULSE 78; RESP 16; TEMP 97.5; O2SAT 100
[2017-11-21] VITALS: BP 141/93; PULSE 54; RESP 14; TEMP 98.6; O2SAT 97
[2017-11-21] MEDS: hydrALAZINE HCL 50 MG TAB PEG SCH ×4 (00:32→18:00)
[2017-11-21] MEDS: NIFEdipine 20 MG CAP PEG SCH ×4 (00:33→18:00)
[2017-11-21] MEDS: FREE WATER G-TUBE SCH ×4 (06:00→16:39)
--- NOTE | 2017-11-21 08:54 | HHI.PR ---
Subjective Remarks Patient seen and examined today for follow-up on decubitus, hemorrhagic CVA. Patient resting complex. Does not indicate any new complaints. No change in clinical status. Afebrile, vital signs are stable Objective Vitals Vital Signs Date Time Temp Pulse Resp B/P (MAP) Pulse Ox O2 Delivery O2 Flow Rate FiO2 11/21/17 00:00 98.6 54 14 141/93 (109) 97 11/20/17 20:00 97.5 78 16 117/79 (92) 100 11/20/17 15:12 97.4 80 16 107/72 (84) 98 I/O 11/20/17 11/20/17 11/20/17 11/21/17 11/21/17 11/21/17 07:00 15:00 23:00 07:00 15:00 23:00 Intake Total 830 ml 440 ml Output Total 875 ml 450 ml 300 ml Balance -45 ml -10 ml -300 ml Tube Feeding 480 ml 240 ml Other 350 ml 200 ml Output Urine Total 875 ml 150 ml 300 ml Stool Total 300 ml Objective Remarks GENERAL: Well-developed, well-nourished, in no acute distress. Awake, responds minimally with head nods. Trying to speak HEENT: Head is normocephalic without any lesions or masses noted. Facial features are symmetric. Eyes: Conjunctivae were clear. CARDIAC: Regular rhythm, regular rate. S1/S2 are heard. 2/6 ejection, no gallops or rubs. LUNGS: Clear to auscultation bilaterally. No wheeze, rhonchi or rales. No use of accessory muscles on inspiration or expiration. ABDOMEN: Soft, nontender. Nondistended. Bowel sounds heard in all 4 quadrants. No organomegaly or masses. Negative rebound, negative guarding, PEG tube noted without any signs of infection EXTREMITIES: No edema, pulses are equal bilaterally. No cyanosis or clubbing NEUROLOGY: Patient is moving left upper extremity and able to move left foot. Patient unable to move right upper and lower extremity. SKIN: Sacral wound with wound VAC at this time Procedures Peg Tube placed 05/08/17 (Dr. De Los Santos) Urinary Catheter: Yes Assessment to: Continue Cruz insert reason: Stage III/IV Press Ulcer Date of Insertion: Nov 08, 2017 Vascular Central Line Catheter: No A/P Assessment and Plan Sacral decubitus with perineal abscess, this will need incision, drainage and debridement Wound care nurse evaluated patient and made recommendations for wound care and surgical debridement 10/10/17, Gen. surgery was consulted for sacral decubitus. Was notified on 10/11/17 that general surgery does not do sacral decubitus debridement or surgeries 10/11/17. Case was discussed with plastic surgery who are actually not computer applications instructor at this time. Dr. Lai was able to arrange for to evaluate the patient 10/12/17. Plastic surgery, , evaluated the patient who recommended Santyl at this time and possible debridement in the near future 10/13/17. Patient remains septic, CT of the pelvis was performed which did indicate multiple abscess in the right posterior perineal area and posterior and left of the rectum, 10/13/17. Discussed this with plastic surgery Dr. Lai, who indicated that these abscesses are 2 deep and to close to rectal mucosal for plastic surgery. He recommended consulting colorectal surgery 10/13/17. Dr. Franklin was computer applications instructor for colorectal surgery, consult was placed to him for evaluation. Case was discussed with him on multiple occasions. He indicates that since this is connected to a sacral decubitus and since there is no communication with the rectum, this case is not appropriate for colorectal surgery, awaiting consultation report 10/15/17. Discussed with Dr. Abdullahi. He was planning a doing debridement of today, however was unable to obtain consent from family 10/17/17. Spoke with son, consents signed for I&D of sacral wound. Debridement performed, patient tolerated well. Dressing change orders in place. 10/19/17 Santyl to wound bed. EARL Pollack. Continue BID dressing changes. 11/02/17 Ortiz saw patient with recommendations for wound vac. Awaiting bait tier. 11/03/17 wound vac placed by bait tier. With recommendations to change Monday, Monday, Fridays Intracranial hemorrhage, 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 Neurosurgery evaluated patient states no surgical intervention Continue PT/OT/ST Consulted as indicated patient is stable to be discharged to rehabilitation facility Case management consulted for inpatient rehabilitation, who indicated patient is homeless, no discharge disposition to inpatient rehabilitation Palliative care was consulted for recommendations. They recommended, see evaluation which has been done. Family wants aggressive measures and placement to be performed Psychiatry indicates that the patient does not have decision-making capacity to participate in her treatment or discharge plan. Patient to get in stretcher chair 3 times daily, will re-iterate to nursing staff Sepsis with leukocytosis, febrile illness, tachycardia, sacral decubitus with perineal abscesses, resolved Continue IV cefepime, IV Levaquin for pseudomonas double coverage Discontinued vancomycin IV/Zosyn IV/fluconazole IV, Continue monitor for infection Blood cultures negative for 5 days Urine culture no growth for 48 hours C. difficile culture was negative Influenza testing is negative wound culture from sacral wound with Pseudomonas Consulted infectious disease for recommendations for continued fever who recommended continuation of antibiotic treatment with Zosyn for 4 weeks, end date 11/10/17. However patient with acute renal sufficiency, antibiotics changed CT of the pelvis that showed decubitus ulcer with small abscess in the right posterior perineal region and small abscess posterior and to the left rectum Dysphagia suspect secondary to intracranial bleed, Post PEG placement 05/09/17. 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 GI Prophylaxis: Prevacid via PEG tube DVT Prophylaxis: Sequential compression devices, chemical prophylaxis contraindicated secondary to intracranial hemorrhage Palliative care: Reconsulted palliative care this time in light of the patient' s worsening condition, family still wishing full aggressive management Records were reviewed. No change in current treatment plan. Awaiting case management for discharge planning Discharge Planning Case management for discharge planning Kayden Kelley Nov 21, 2017 08:54
[2017-11-21 09:00] VITALS: BP 96/68; PULSE 80; RESP 18; TEMP 96.6; O2SAT 99
[2017-11-21] MEDS: METOPROLOL TARTRATE 100 MG TAB PEG SCH ×2 (09:12→21:41)
[2017-11-21] MEDS: LISINOPRIL 10 MG TAB PEG SCH ×2 (09:12→21:41)
[2017-11-21] MEDS: LACTIC ACID (AMMONIUM LACTATE) 12% LOTION 225 GM BTL TOPICAL SCH ×2 (09:14→21:41)
[2017-11-21] MEDS: LANSOPRAZOLE SOLUTAB 30 MG TAB G-TUBE SCH (09:14)
[2017-11-21] MEDS: HYDROCHLOROTHIAZIDE 25 MG TAB PO SCH (09:14)
[2017-11-21 09:15] VITALS: BP 108/74
[2017-11-21] MEDS: REMOVE OLD CATAPRES (CLONIDINE) PATCH T-DERMAL SCH (15:00)
[2017-11-21 16:00] VITALS: BP 122/86; PULSE 77; RESP 16; TEMP 98.5; O2SAT 100
[2017-11-21] MEDS: cloNIDine HCL 0.3 MG/24 HR PATCH T-DERMAL SCH (16:39)
[2017-11-21 19:15] VITALS: BP 130/81; PULSE 108; RESP 16; TEMP 98.7; O2SAT 95
[2017-11-22] MEDS: hydrALAZINE HCL 50 MG TAB PEG SCH ×4 (00:21→18:25)
[2017-11-22] MEDS: NIFEdipine 20 MG CAP PEG SCH ×4 (00:21→18:25)
[2017-11-22] MEDS: FREE WATER G-TUBE SCH ×5 (06:00→21:00)
[2017-11-22 08:00] VITALS: BP 99/69; PULSE 61; RESP 16; TEMP 97.7; O2SAT 95
--- NOTE | 2017-11-22 08:58 | HHI.PR ---
Subjective Remarks Patient seen and examined today for follow-up on sacral wound, hemorrhagic CVA. Patient lying in bed comfortable. No change in clinical status. No indication of any new complaints. Vital signs are stable. Afebrile Objective Vitals Vital Signs Date Time Temp Pulse Resp B/P (MAP) Pulse Ox O2 Delivery O2 Flow Rate FiO2 11/21/17 19:15 98.7 108 16 130/81 (97) 95 11/21/17 16:00 98.5 77 16 122/86 (98) 100 11/21/17 09:15 108/74 (85) 11/21/17 09:00 96.6 80 18 96/68 (77) 99 I/O 11/21/17 11/21/17 11/21/17 11/22/17 11/22/17 11/22/17 07:00 15:00 23:00 07:00 15:00 23:00 Intake Total 0 ml Output Total 300 ml 1450 ml 1000 ml Balance -300 ml -1450 ml -1000 ml Intake Oral 0 ml Output Urine Total 300 ml 1450 ml 1000 ml Objective Remarks GENERAL: Well-developed, well-nourished, in no acute distress. Awake, responds minimally with head nods. Trying to speak HEENT: Head is normocephalic without any lesions or masses noted. Facial features are symmetric. Eyes: Conjunctivae were clear. CARDIAC: Regular rhythm, regular rate. S1/S2 are heard. 2/6 ejection, no gallops or rubs. LUNGS: Clear to auscultation bilaterally. No wheeze, rhonchi or rales. No use of accessory muscles on inspiration or expiration. ABDOMEN: Soft, nontender. Nondistended. Bowel sounds heard in all 4 quadrants. No organomegaly or masses. Negative rebound, negative guarding, PEG tube noted without any signs of infection EXTREMITIES: No edema, pulses are equal bilaterally. No cyanosis or clubbing NEUROLOGY: Patient is moving left upper extremity and able to move left foot. Patient unable to move right upper and lower extremity. SKIN: Sacral wound with wound VAC at this time Procedures Peg Tube placed 05/08/17 (Dr. De Los Santos) Date of Insertion: Nov 08, 2017 A/P Assessment and Plan Sacral decubitus with perineal abscess, this will need incision, drainage and debridement Wound care nurse evaluated patient and made recommendations for wound care and surgical debridement 10/10/17, Gen. surgery was consulted for sacral decubitus. Was notified on 10/11/17 that general surgery does not do sacral decubitus debridement or surgeries 10/11/17. Case was discussed with plastic surgery who are actually not refrigeration brazer/solderer at this time. Dr. Lai was able to arrange for to evaluate the patient 10/12/17. Plastic surgery, , evaluated the patient who recommended Santyl at this time and possible debridement in the near future 10/13/17. Patient remains septic, CT of the pelvis was performed which did indicate multiple abscess in the right posterior perineal area and posterior and left of the rectum, 10/13/17. Discussed this with plastic surgery Dr. Lai, who indicated that these abscesses are 2 deep and to close to rectal mucosal for plastic surgery. He recommended consulting colorectal surgery 10/13/17. Dr. Franklin was refrigeration brazer/solderer for colorectal surgery, consult was placed to him for evaluation. Case was discussed with him on multiple occasions. He indicates that since this is connected to a sacral decubitus and since there is no communication with the rectum, this case is not appropriate for colorectal surgery, awaiting consultation report 10/15/17. Discussed with Dr. Abdullahi. He was planning a doing debridement of today, however was unable to obtain consent from family 10/17/17. Spoke with son, consents signed for I&D of sacral wound. Debridement performed, patient tolerated well. Dressing change orders in place. 10/19/17 Santyl to wound bed. EARL Pollack. Continue BID dressing changes. 11/02/17 Ortiz saw patient with recommendations for wound vac. Awaiting discharge specialist. 11/03/17 wound vac placed by discharge specialist. With recommendations to change Monday, Monday, Fridays Intracranial hemorrhage, 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 Neurosurgery evaluated patient states no surgical intervention Continue PT/OT/ST Consulted as indicated patient is stable to be discharged to rehabilitation facility Case management consulted for inpatient rehabilitation, who indicated patient is homeless, no discharge disposition to inpatient rehabilitation Palliative care was consulted for recommendations. They recommended, see evaluation which has been done. Family wants aggressive measures and placement to be performed Psychiatry indicates that the patient does not have decision-making capacity to participate in her treatment or discharge plan. Patient to get in stretcher chair 3 times daily, will re-iterate to nursing staff Sepsis with leukocytosis, febrile illness, tachycardia, sacral decubitus with perineal abscesses, resolved Continue IV cefepime, IV Levaquin for pseudomonas double coverage Discontinued vancomycin IV/Zosyn IV/fluconazole IV, Continue monitor for infection Blood cultures negative for 5 days Urine culture no growth for 48 hours C. difficile culture was negative Influenza testing is negative wound culture from sacral wound with Pseudomonas Consulted infectious disease for recommendations for continued fever who recommended continuation of antibiotic treatment with Zosyn for 4 weeks, end date 11/10/17. However patient with acute renal sufficiency, antibiotics changed CT of the pelvis that showed decubitus ulcer with small abscess in the right posterior perineal region and small abscess posterior and to the left rectum Dysphagia suspect secondary to intracranial bleed, Post PEG placement 05/09/17. Speech therapy indicates patient is nothing by mouth, to continue to follow and advance diet per exam Dietary consulted and made recommendations for bolus feeding Hypertension, continue monitor blood pressure and adjust as needed Nifedipine 40 mg every 6 hours Lisinopril 5 mg twice daily Apresoline 50 mg every 6 hours Catapres TTS 3 patch Metoprolol 100 mg twice daily HCTZ 25 mg daily Apresoline, clonidine, Vasotec as needed Hyperglycemia Hemoglobin A1c 6.2 Glucerna 1.5 bolus tube feeding Xeroderma on bilateral feet: Lac-Hydrin 12% Lotion continued. GI Prophylaxis: Prevacid via PEG tube DVT Prophylaxis: Sequential compression devices, chemical prophylaxis contraindicated secondary to intracranial hemorrhage Palliative care: Reconsulted palliative care this time in light of the patient' s worsening condition, family still wishing full aggressive management Discharge Planning Case management for discharge planning Kayden Kelley Nov 22, 2017 08:58
[2017-11-22] MEDS: METOPROLOL TARTRATE 100 MG TAB PEG SCH ×2 (09:29→21:00)
[2017-11-22] MEDS: LACTIC ACID (AMMONIUM LACTATE) 12% LOTION 225 GM BTL TOPICAL SCH ×2 (09:29→21:57)
[2017-11-22] MEDS: LANSOPRAZOLE SOLUTAB 30 MG TAB G-TUBE SCH (09:30)
[2017-11-22] MEDS: HYDROCHLOROTHIAZIDE 25 MG TAB PO SCH (09:30)
[2017-11-22] MEDS: LISINOPRIL 5 MG TAB PEG SCH ×2 (09:30→21:00)
[2017-11-22 14:10] VITALS: BP 98/65
[2017-11-22 18:23] VITALS: BP 107/81; PULSE 71
[2017-11-22 21:38] VITALS: BP 98/72; PULSE 95; RESP 19; TEMP 96.8; O2SAT 100
[2017-11-23] VITALS: BP 121/77; PULSE 89; RESP 17; TEMP 97.2; O2SAT 96
[2017-11-23] MEDS: NIFEdipine 20 MG CAP PEG SCH ×4 (00:21→17:58)
[2017-11-23] MEDS: hydrALAZINE HCL 50 MG TAB PEG SCH ×4 (00:21→17:58)
[2017-11-23 04:00] VITALS: BP 118/70; PULSE 82; RESP 16; TEMP 98.1; O2SAT 97
[2017-11-23] MEDS: FREE WATER G-TUBE SCH ×4 (06:00→17:59)
[2017-11-23 08:00] VITALS: BP 116/83; PULSE 104; RESP 16; TEMP 99.2; O2SAT 100
[2017-11-23] MEDS: LACTIC ACID (AMMONIUM LACTATE) 12% LOTION 225 GM BTL TOPICAL SCH ×2 (09:00→20:50)
[2017-11-23] MEDS: LANSOPRAZOLE SOLUTAB 30 MG TAB G-TUBE SCH (11:20)
[2017-11-23] MEDS: HYDROCHLOROTHIAZIDE 25 MG TAB PO SCH (11:20)
--- NOTE | 2017-11-23 11:24 | HHI.PR ---
Subjective Remarks Patient seen and examined today for follow-up on sacral wound and hemorrhagic CVA. Patient lying in bed comfortable. No indication of any new complaints or symptoms. Vital signs are stable, afebrile Objective Vitals Vital Signs Date Time Temp Pulse Resp B/P (MAP) Pulse Ox O2 Delivery O2 Flow Rate FiO2 11/23/17 08:00 99.2 104 16 116/83 (94) 100 11/23/17 04:00 98.1 82 16 118/70 (86) 97 11/23/17 00:00 97.2 89 17 121/77 (92) 96 11/22/17 21:38 96.8 95 19 98/72 (81) 100 11/22/17 18:23 71 107/81 (90) 11/22/17 14:10 98/65 (76) I/O 11/22/17 11/22/17 11/22/17 11/23/17 11/23/17 11/23/17 07:00 15:00 23:00 07:00 15:00 23:00 Intake Total 160 ml 740 ml Output Total 1000 ml 1450 ml Balance -1000 ml 160 ml -710 ml Tube Feeding 240 ml Tube Irrigant 500 ml Other 160 ml Output Urine Total 1000 ml 1450 ml # Voids 1 Objective Remarks GENERAL: Well-developed, well-nourished, in no acute distress. Awake, responds minimally with head nods. Trying to speak HEENT: Head is normocephalic without any lesions or masses noted. Facial features are symmetric. Eyes: Conjunctivae were clear. CARDIAC: Regular rhythm, regular rate. S1/S2 are heard. 2/6 ejection, no gallops or rubs. LUNGS: Clear to auscultation bilaterally. No wheeze, rhonchi or rales. No use of accessory muscles on inspiration or expiration. ABDOMEN: Soft, nontender. Nondistended. Bowel sounds heard in all 4 quadrants. No organomegaly or masses. Negative rebound, negative guarding, PEG tube noted without any signs of infection EXTREMITIES: No edema, pulses are equal bilaterally. No cyanosis or clubbing NEUROLOGY: Patient is moving left upper extremity and able to move left foot. Patient unable to move right upper and lower extremity. SKIN: Sacral wound with wound VAC at this time Procedures Peg Tube placed 05/08/17 (Dr. De Los Santos) Urinary Catheter: Yes Assessment to: Continue Cruz insert reason: Stage III/IV Press Ulcer Date of Insertion: Nov 08, 2017 Vascular Central Line Catheter: No A/P Assessment and Plan Sacral decubitus with perineal abscess, this will need incision, drainage and debridement Wound care nurse evaluated patient and made recommendations for wound care and surgical debridement 10/10/17, Gen. surgery was consulted for sacral decubitus. Was notified on 10/11/17 that general surgery does not do sacral decubitus debridement or surgeries 10/11/17. Case was discussed with plastic surgery who are actually not senior talent acquisition specialist at this time. Dr. Lai was able to arrange for to evaluate the patient 10/12/17. Plastic surgery, , evaluated the patient who recommended Santyl at this time and possible debridement in the near future 10/13/17. Patient remains septic, CT of the pelvis was performed which did indicate multiple abscess in the right posterior perineal area and posterior and left of the rectum, 10/13/17. Discussed this with plastic surgery Dr. Lai, who indicated that these abscesses are 2 deep and to close to rectal mucosal for plastic surgery. He recommended consulting colorectal surgery 10/13/17. Dr. Franklin was senior talent acquisition specialist for colorectal surgery, consult was placed to him for evaluation. Case was discussed with him on multiple occasions. He indicates that since this is connected to a sacral decubitus and since there is no communication with the rectum, this case is not appropriate for colorectal surgery, awaiting consultation report 10/15/17. Discussed with Dr. Abdullahi. He was planning a doing debridement of today, however was unable to obtain consent from family 10/17/17. Spoke with son, consents signed for I&D of sacral wound. Debridement performed, patient tolerated well. Dressing change orders in place. 10/19/17 Santyl to wound bed. EARL Polalck. Continue BID dressing changes. 11/02/17 Ortiz saw patient with recommendations for wound vac. Awaiting videotape operator. 11/03/17 wound vac placed by videotape operator. With recommendations to change Monday, Monday, Fridays Intracranial hemorrhage, 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 Neurosurgery evaluated patient states no surgical intervention Continue PT/OT/ST Consulted as indicated patient is stable to be discharged to rehabilitation facility Case management consulted for inpatient rehabilitation, who indicated patient is homeless, no discharge disposition to inpatient rehabilitation Palliative care was consulted for recommendations. They recommended, see evaluation which has been done. Family wants aggressive measures and placement to be performed Psychiatry indicates that the patient does not have decision-making capacity to participate in her treatment or discharge plan. Patient to get in stretcher chair 3 times daily, will re-iterate to nursing staff Sepsis with leukocytosis, febrile illness, tachycardia, sacral decubitus with perineal abscesses, resolved Continue IV cefepime, IV Levaquin for pseudomonas double coverage Discontinued vancomycin IV/Zosyn IV/fluconazole IV, Continue monitor for infection Blood cultures negative for 5 days Urine culture no growth for 48 hours C. difficile culture was negative Influenza testing is negative wound culture from sacral wound with Pseudomonas Consulted infectious disease for recommendations for continued fever who recommended continuation of antibiotic treatment with Zosyn for 4 weeks, end date 11/10/17. However patient with acute renal sufficiency, antibiotics changed CT of the pelvis that showed decubitus ulcer with small abscess in the right posterior perineal region and small abscess posterior and to the left rectum Dysphagia suspect secondary to intracranial bleed, Post PEG placement 05/09/17. Speech therapy indicates patient is nothing by mouth, to continue to follow and advance diet per exam Dietary consulted and made recommendations for bolus feeding Hypertension, continue monitor blood pressure and adjust as needed Reviewing medication list is indicating that nursing staff has been holding multiple blood pressure medications on a regular basis Nifedipine 40 mg every 6 hours Discontinue Lisinopril 5 mg twice daily Apresoline 50 mg every 6 hours Catapres TTS 3 patch Change to Metoprolol 50 mg twice daily HCTZ 25 mg daily Apresoline, clonidine, Vasotec as needed Hyperglycemia Hemoglobin A1c 6.2 Glucerna 1.5 bolus tube feeding Xeroderma on bilateral feet: Lac-Hydrin 12% Lotion continued. GI Prophylaxis: Prevacid via PEG tube DVT Prophylaxis: Sequential compression devices, chemical prophylaxis contraindicated secondary to intracranial hemorrhage Discharge Planning Case management for discharge planning Kayden Kelley Nov 23, 2017 11:24
[2017-11-23 12:00] VITALS: BP 104/76; PULSE 69; RESP 16; TEMP 98.2; O2SAT 100
[2017-11-23 16:00] VITALS: BP 101/75; PULSE 65; RESP 16; TEMP 98.1; O2SAT 97
[2017-11-23 20:00] VITALS: BP 116/76; PULSE 72; RESP 18; TEMP 98.9; O2SAT 96
[2017-11-23] MEDS: METOPROLOL TARTRATE 50 MG TAB PEG SCH (20:50)
[2017-11-24] VITALS: BP 122/78; PULSE 66; RESP 17; TEMP 98.1; O2SAT 95
[2017-11-24] MEDS: FREE WATER G-TUBE SCH ×5 (00:24→23:57)
[2017-11-24] MEDS: hydrALAZINE HCL 50 MG TAB PEG SCH ×5 (00:24→23:57)
[2017-11-24] MEDS: NIFEdipine 20 MG CAP PEG SCH ×5 (00:24→23:57)
[2017-11-24 08:30] VITALS: BP 98/70; PULSE 73; RESP 20; TEMP 98.5; O2SAT 98
--- NOTE | 2017-11-24 08:33 | PD.WCN.NOT ---
Neg Pressure Wound Therapy Wound Description Length: 4.6cm Width: 3.4cm Depth: 0.9cm Underminin-6 O'clock ~1.9cm at the deepest around 5 o'clock Wound bed appearance: 70% beefy red tissue ~10% tendon, ~10% bone and ~10% fascia Settings Suction: 125 mmHg, Continuous Intensity: Low Other Information: Bridged, Windowpaned, Mushroomed Foam type: Black Number of pieces: 1 Additonal Information Patient was seen by scientific technical writer in [facility] 3rd floor for follow up sacrococcygeal wound. Patient was repositioned to L side for dressing removal.Patient was then turned to R side for wound assessment and dressing change.Cleansed wound with wound cleanser and pat dry.Wound description and measurements noted above.Skin prep applied to periwound stoma paste applied to distal wound to protect skin/ seal. One piece transparent drape applied to periwound bridged to L anterior thigh.1 piece black sponge applied to wound base making contact with all undermining areas bridged to R anterior thigh. Sensi trac pad applied with mushroom cap of granufoam to bridged granufoam.Vac set at 125mmhg continuous low suction no leaks noted.Patient tolerated wound care/Vac placement well. Wound VAC to be changed every MON,WEDS,FRI. Yon Caruso [facility] Nov 24, 2017 08:33
[2017-11-24] MEDS: LACTIC ACID (AMMONIUM LACTATE) 12% LOTION 225 GM BTL TOPICAL SCH ×2 (09:00→20:25)
[2017-11-24] MEDS: METOPROLOL TARTRATE 50 MG TAB PEG SCH ×2 (09:00→09:49)
[2017-11-24] MEDS: HYDROCHLOROTHIAZIDE 25 MG TAB PO SCH (09:49)
[2017-11-24] MEDS: LANSOPRAZOLE SOLUTAB 30 MG TAB G-TUBE SCH (09:49)
[2017-11-24 12:00] VITALS: BP 106/80; PULSE 72; RESP 20; TEMP 97.9; O2SAT 99
--- NOTE | 2017-11-24 12:59 | HHI.PR ---
Subjective Remarks Patient seen and examined today for follow-up on sacral decubitus, hemorrhagic CVA. Patient lying in bed counseled. Denies any new complaints today. No change in clinical status. Vital signs are stable, afebrile Objective Vitals Vital Signs Date Time Temp Pulse Resp B/P (MAP) Pulse Ox O2 Delivery O2 Flow Rate FiO2 11/24/17 12:00 97.9 72 20 106/80 (89) 99 11/24/17 08:30 98.5 73 20 98/70 (79) 98 11/24/17 00:00 98.1 66 17 122/78 (93) 95 11/23/17 20:00 98.9 72 18 116/76 (89) 96 11/23/17 16:00 98.1 65 16 101/75 (84) 97 I/O 11/23/17 11/23/17 11/23/17 11/24/17 11/24/17 11/24/17 07:00 15:00 23:00 07:00 15:00 23:00 Intake Total 740 ml 0 ml 1340 ml 180 ml Output Total 1450 ml 800 ml 600 ml Balance -710 ml -800 ml 1340 ml -420 ml Intake Oral 0 ml Tube Feeding 240 ml 720 ml Tube Irrigant 500 ml 180 ml 180 ml Other 440 ml Output Urine Total 1450 ml 800 ml 600 ml # Voids 1 Objective Remarks GENERAL: Well-developed, well-nourished, in no acute distress. Awake, responds minimally with head nods. Trying to speak HEENT: Head is normocephalic without any lesions or masses noted. Facial features are symmetric. Eyes: Conjunctivae were clear. CARDIAC: Regular rhythm, regular rate. S1/S2 are heard. 2/6 ejection, no gallops or rubs. LUNGS: Clear to auscultation bilaterally. No wheeze, rhonchi or rales. No use of accessory muscles on inspiration or expiration. ABDOMEN: Soft, nontender. Nondistended. Bowel sounds heard in all 4 quadrants. No organomegaly or masses. Negative rebound, negative guarding, PEG tube noted without any signs of infection EXTREMITIES: No edema, pulses are equal bilaterally. No cyanosis or clubbing NEUROLOGY: Patient is moving left upper extremity and able to move left foot. Patient unable to move right upper and lower extremity. SKIN: Sacral wound with wound VAC at this time Procedures Peg Tube placed 05/08/17 (Dr. De Los Santos) Urinary Catheter: Yes Assessment to: Continue Cruz insert reason: Stage III/IV Press Ulcer Date of Insertion: Nov 08, 2017 Vascular Central Line Catheter: No A/P Assessment and Plan Sacral decubitus with perineal abscess, this will need incision, drainage and debridement Wound care nurse evaluated patient and made recommendations for wound care and surgical debridement 10/10/17, Gen. surgery was consulted for sacral decubitus. Was notified on 10/11/17 that general surgery does not do sacral decubitus debridement or surgeries 10/11/17. Case was discussed with plastic surgery who are actually not patient transportation driver at this time. Dr. Lai was able to arrange for to evaluate the patient 10/12/17. Plastic surgery, , evaluated the patient who recommended Santyl at this time and possible debridement in the near future 10/13/17. Patient remains septic, CT of the pelvis was performed which did indicate multiple abscess in the right posterior perineal area and posterior and left of the rectum, 10/13/17. Discussed this with plastic surgery Dr. Lai, who indicated that these abscesses are 2 deep and to close to rectal mucosal for plastic surgery. He recommended consulting colorectal surgery 10/13/17. Dr. Franklin was patient transportation driver for colorectal surgery, consult was placed to him for evaluation. Case was discussed with him on multiple occasions. He indicates that since this is connected to a sacral decubitus and since there is no communication with the rectum, this case is not appropriate for colorectal surgery, awaiting consultation report 10/15/17. Discussed with Dr. Abdullahi. He was planning a doing debridement of today, however was unable to obtain consent from family 10/17/17. Spoke with son, consents signed for I&D of sacral wound. Debridement performed, patient tolerated well. Dressing change orders in place. 10/19/17 Santyl to wound bed. EARL Pollack. Continue BID dressing changes. 11/02/17 Ortiz saw patient with recommendations for wound vac. Awaiting retail solar advisor. 11/03/17 wound vac placed by retail solar advisor. With recommendations to change Monday, Monday, Fridays Intracranial hemorrhage, 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 Neurosurgery evaluated patient states no surgical intervention Continue PT/OT/ST Consulted as indicated patient is stable to be discharged to rehabilitation facility Case management consulted for inpatient rehabilitation, who indicated patient is homeless, no discharge disposition to inpatient rehabilitation Palliative care was consulted for recommendations. They recommended, see evaluation which has been done. Family wants aggressive measures and placement to be performed Psychiatry indicates that the patient does not have decision-making capacity to participate in her treatment or discharge plan. Patient to get in stretcher chair 3 times daily, will re-iterate to nursing staff Sepsis with leukocytosis, febrile illness, tachycardia, sacral decubitus with perineal abscesses, resolved Continue IV cefepime, IV Levaquin for pseudomonas double coverage Discontinued vancomycin IV/Zosyn IV/fluconazole IV, Continue monitor for infection Blood cultures negative for 5 days Urine culture no growth for 48 hours C. difficile culture was negative Influenza testing is negative wound culture from sacral wound with Pseudomonas Consulted infectious disease for recommendations for continued fever who recommended continuation of antibiotic treatment with Zosyn for 4 weeks, end date 11/10/17. However patient with acute renal sufficiency, antibiotics changed CT of the pelvis that showed decubitus ulcer with small abscess in the right posterior perineal region and small abscess posterior and to the left rectum Dysphagia suspect secondary to intracranial bleed, Post PEG placement 05/09/17. Speech therapy indicates patient is nothing by mouth, to continue to follow and advance diet per exam Dietary consulted and made recommendations for bolus feeding Hypertension, continue monitor blood pressure and adjust as needed Reviewing medication list is indicating that nursing staff has been holding multiple blood pressure medications on a regular basis Nifedipine 40 mg every 6 hours Apresoline 50 mg every 6 hours Catapres TTS 3 patch Change to Metoprolol 25 mg twice daily HCTZ 25 mg daily Apresoline, clonidine, Vasotec as needed Hyperglycemia Hemoglobin A1c 6.2 Glucerna 1.5 bolus tube feeding Xeroderma on bilateral feet: Lac-Hydrin 12% Lotion continued. GI Prophylaxis: Prevacid via PEG tube DVT Prophylaxis: Sequential compression devices, chemical prophylaxis contraindicated secondary to intracranial hemorrhage Discharge Planning Case management for discharge planning Kayden Kelley Nov 24, 2017 12:59
[2017-11-24 16:00] VITALS: BP 109/81; PULSE 70; RESP 20; TEMP 99.6; O2SAT 98
[2017-11-24] MEDS: METOPROLOL TARTRATE 25 MG TAB PEG SCH (20:25)
[2017-11-24 21:06] VITALS: BP 127/80; PULSE 67; RESP 16; TEMP 98; O2SAT 97
[2017-11-25] MEDS: FREE WATER G-TUBE SCH ×3 (05:12→17:27)
[2017-11-25] MEDS: NIFEdipine 20 MG CAP PEG SCH ×3 (05:21→17:27)
[2017-11-25] MEDS: hydrALAZINE HCL 50 MG TAB PEG SCH ×3 (05:21→17:27)
[2017-11-25 08:00] VITALS: BP 138/94; PULSE 65; RESP 16; TEMP 98.1; O2SAT 97
[2017-11-25] MEDS: LACTIC ACID (AMMONIUM LACTATE) 12% LOTION 225 GM BTL TOPICAL SCH ×2 (09:00→20:17)
[2017-11-25] MEDS: LANSOPRAZOLE SOLUTAB 30 MG TAB G-TUBE SCH (09:08)
[2017-11-25] MEDS: HYDROCHLOROTHIAZIDE 25 MG TAB PO SCH (09:09)
[2017-11-25] MEDS: METOPROLOL TARTRATE 25 MG TAB PEG SCH ×2 (09:09→20:16)
--- NOTE | 2017-11-25 09:48 | HHI.PR ---
Subjective Remarks Patient seen and examined today for follow-up on sacral wound, hemorrhagic CVA. Patient does not indicate any new complaints today. Vital signs are stable, afebrile Objective Vitals Vital Signs Date Time Temp Pulse Resp B/P (MAP) Pulse Ox O2 Delivery O2 Flow Rate FiO2 11/25/17 08:00 98.1 65 16 138/94 (109) 97 11/24/17 21:06 98.0 67 16 127/80 (96) 97 11/24/17 16:00 99.6 70 20 109/81 (90) 98 11/24/17 12:00 97.9 72 20 106/80 (89) 99 I/O 11/24/17 11/24/17 11/24/17 11/25/17 11/25/17 11/25/17 07:00 15:00 23:00 07:00 15:00 23:00 Intake Total 180 ml 1060 ml 540 ml Output Total 600 ml 420 ml 1300 ml Balance -420 ml 640 ml -760 ml Tube Feeding 720 ml 240 ml Tube Irrigant 180 ml Other 340 ml 300 ml Output Urine Total 600 ml 420 ml 1300 ml # Bowel Movements 0 Objective Remarks GENERAL: Well-developed, well-nourished, in no acute distress. Awake, responds minimally with head nods. Trying to speak HEENT: Head is normocephalic without any lesions or masses noted. Facial features are symmetric. Eyes: Conjunctivae were clear. CARDIAC: Regular rhythm, regular rate. S1/S2 are heard. 2/6 ejection, no gallops or rubs. LUNGS: Clear to auscultation bilaterally. No wheeze, rhonchi or rales. No use of accessory muscles on inspiration or expiration. ABDOMEN: Soft, nontender. Nondistended. Bowel sounds heard in all 4 quadrants. No organomegaly or masses. Negative rebound, negative guarding, PEG tube noted without any signs of infection EXTREMITIES: No edema, pulses are equal bilaterally. No cyanosis or clubbing NEUROLOGY: Patient is moving left upper extremity and able to move left foot. Patient unable to move right upper and lower extremity. SKIN: Sacral wound with wound VAC at this time Procedures Peg Tube placed 05/08/17 (Dr. De Los Santos) Urinary Catheter: Yes Assessment to: Continue Cruz insert reason: Stage III/IV Press Ulcer Date of Insertion: Nov 08, 2017 Vascular Central Line Catheter: No A/P Assessment and Plan Sacral decubitus with perineal abscess, this will need incision, drainage and debridement Wound care nurse evaluated patient and made recommendations for wound care and surgical debridement 10/10/17, Gen. surgery was consulted for sacral decubitus. Was notified on 10/11/17 that general surgery does not do sacral decubitus debridement or surgeries 10/11/17. Case was discussed with plastic surgery who are actually not information scientist at this time. Dr. Lai was able to arrange for to evaluate the patient 10/12/17. Plastic surgery, , evaluated the patient who recommended Santyl at this time and possible debridement in the near future 10/13/17. Patient remains septic, CT of the pelvis was performed which did indicate multiple abscess in the right posterior perineal area and posterior and left of the rectum, 10/13/17. Discussed this with plastic surgery Dr. Lai, who indicated that these abscesses are 2 deep and to close to rectal mucosal for plastic surgery. He recommended consulting colorectal surgery 10/13/17. Dr. Franklin was information scientist for colorectal surgery, consult was placed to him for evaluation. Case was discussed with him on multiple occasions. He indicates that since this is connected to a sacral decubitus and since there is no communication with the rectum, this case is not appropriate for colorectal surgery, awaiting consultation report 10/15/17. Discussed with Dr. Abdullahi. He was planning a doing debridement of today, however was unable to obtain consent from family 10/17/17. Spoke with son, consents signed for I&D of sacral wound. Debridement performed, patient tolerated well. Dressing change orders in place. 10/19/17 Santyl to wound bed. EARL Pollack. Continue BID dressing changes. 11/02/17 Ortiz saw patient with recommendations for wound vac. Awaiting offshore wind operations manager. 11/03/17 wound vac placed by offshore wind operations manager. With recommendations to change Monday, Monday, Fridays Intracranial hemorrhage, 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 Neurosurgery evaluated patient states no surgical intervention Continue PT/OT/ST Consulted as indicated patient is stable to be discharged to rehabilitation facility Case management consulted for inpatient rehabilitation, who indicated patient is homeless, no discharge disposition to inpatient rehabilitation Palliative care was consulted for recommendations. They recommended, see evaluation which has been done. Family wants aggressive measures and placement to be performed Psychiatry indicates that the patient does not have decision-making capacity to participate in her treatment or discharge plan. Patient to get in stretcher chair 3 times daily, will re-iterate to nursing staff Sepsis with leukocytosis, febrile illness, tachycardia, sacral decubitus with perineal abscesses, resolved Continue IV cefepime, IV Levaquin for pseudomonas double coverage Discontinued vancomycin IV/Zosyn IV/fluconazole IV, Continue monitor for infection Blood cultures negative for 5 days Urine culture no growth for 48 hours C. difficile culture was negative Influenza testing is negative wound culture from sacral wound with Pseudomonas Consulted infectious disease for recommendations for continued fever who recommended continuation of antibiotic treatment with Zosyn for 4 weeks, end date 11/10/17. However patient with acute renal sufficiency, antibiotics changed CT of the pelvis that showed decubitus ulcer with small abscess in the right posterior perineal region and small abscess posterior and to the left rectum Dysphagia suspect secondary to intracranial bleed, Post PEG placement 05/09/17. Speech therapy indicates patient is nothing by mouth, to continue to follow and advance diet per exam Dietary consulted and made recommendations for bolus feeding Hypertension, continue monitor blood pressure and adjust as needed Reviewing medication list is indicating that nursing staff has been holding multiple blood pressure medications on a regular basis Nifedipine 40 mg every 6 hours Apresoline 50 mg every 6 hours Catapres TTS 3 patch Metoprolol 25 mg twice daily HCTZ 25 mg daily Apresoline, clonidine, Vasotec as needed Hyperglycemia Hemoglobin A1c 6.2 Glucerna 1.5 bolus tube feeding Xeroderma on bilateral feet: Lac-Hydrin 12% Lotion continued. GI Prophylaxis: Prevacid via PEG tube DVT Prophylaxis: Sequential compression devices, chemical prophylaxis contraindicated secondary to intracranial hemorrhage Records were reviewed, no change in current treatment plan, awaiting case management for discharge planning Discharge Planning Case management for discharge planning Kayden Kelley Nov 25, 2017 09:48
[2017-11-25 12:00] VITALS: BP 123/84; PULSE 79; RESP 18; TEMP 97.1; O2SAT 98
[2017-11-25 17:40] VITALS: BP 139/82; PULSE 58; RESP 18; TEMP 96.5; O2SAT 100
[2017-11-25 20:00] VITALS: BP 129/85; PULSE 71; RESP 20; TEMP 98.8; O2SAT 98
[2017-11-26] MEDS: FREE WATER G-TUBE SCH ×4 (00:12→17:39)
[2017-11-26] MEDS: hydrALAZINE HCL 50 MG TAB PEG SCH ×4 (00:12→17:39)
[2017-11-26] MEDS: NIFEdipine 20 MG CAP PEG SCH ×4 (00:12→17:39)
--- NOTE | 2017-11-26 07:39 | HHI.PR ---
Subjective Remarks Patient seen and examined today for follow-up on sacral wound and hemorrhagic CVA. Patient not indicate any new complaints. No change in clinical status. Vital signs are stable, afebrile Objective Vitals Vital Signs Date Time Temp Pulse Resp B/P (MAP) Pulse Ox O2 Delivery O2 Flow Rate FiO2 11/25/17 20:00 98.8 71 20 129/85 (100) 98 11/25/17 17:40 96.5 58 18 139/82 (101) 100 11/25/17 12:00 97.1 79 18 123/84 (97) 98 11/25/17 08:00 98.1 65 16 138/94 (109) 97 I/O 11/25/17 11/25/17 11/25/17 11/26/17 11/26/17 11/26/17 07:00 15:00 23:00 07:00 15:00 23:00 Intake Total 540 ml 540 ml Output Total 1300 ml 350 ml 300 ml Balance -760 ml -350 ml 240 ml Intake Oral 0 ml Tube Feeding 240 ml 240 ml Other 300 ml 300 ml Output Urine Total 1300 ml 350 ml 300 ml # Bowel Movements 0 Objective Remarks GENERAL: Well-developed, well-nourished, in no acute distress. Awake, responds minimally with head nods. Trying to speak HEENT: Head is normocephalic without any lesions or masses noted. Facial features are symmetric. Eyes: Conjunctivae were clear. CARDIAC: Regular rhythm, regular rate. S1/S2 are heard. 2/6 ejection, no gallops or rubs. LUNGS: Clear to auscultation bilaterally. No wheeze, rhonchi or rales. No use of accessory muscles on inspiration or expiration. ABDOMEN: Soft, nontender. Nondistended. Bowel sounds heard in all 4 quadrants. No organomegaly or masses. Negative rebound, negative guarding, PEG tube noted without any signs of infection EXTREMITIES: No edema, pulses are equal bilaterally. No cyanosis or clubbing NEUROLOGY: Patient is moving left upper extremity and able to move left foot. Patient unable to move right upper and lower extremity. SKIN: Sacral wound with wound VAC at this time Procedures Peg Tube placed 05/08/17 (Dr. De Los Santos) Urinary Catheter: No Date of Insertion: Nov 08, 2017 Vascular Central Line Catheter: No A/P Assessment and Plan Sacral decubitus with perineal abscess, this will need incision, drainage and debridement Wound care nurse evaluated patient and made recommendations for wound care and surgical debridement 10/10/17, Gen. surgery was consulted for sacral decubitus. Was notified on 10/11/17 that general surgery does not do sacral decubitus debridement or surgeries 10/11/17. Case was discussed with plastic surgery who are actually not diamond assorter at this time. Dr. Lai was able to arrange for to evaluate the patient 10/12/17. Plastic surgery, , evaluated the patient who recommended Santyl at this time and possible debridement in the near future 10/13/17. Patient remains septic, CT of the pelvis was performed which did indicate multiple abscess in the right posterior perineal area and posterior and left of the rectum, 10/13/17. Discussed this with plastic surgery Dr. Lai, who indicated that these abscesses are 2 deep and to close to rectal mucosal for plastic surgery. He recommended consulting colorectal surgery 10/13/17. Dr. Franklin was diamond assorter for colorectal surgery, consult was placed to him for evaluation. Case was discussed with him on multiple occasions. He indicates that since this is connected to a sacral decubitus and since there is no communication with the rectum, this case is not appropriate for colorectal surgery, awaiting consultation report 10/15/17. Discussed with Dr. Abdullahi. He was planning a doing debridement of today, however was unable to obtain consent from family 10/17/17. Spoke with son, consents signed for I&D of sacral wound. Debridement performed, patient tolerated well. Dressing change orders in place. 10/19/17 Santyl to wound bed. EARL Pollack. Continue BID dressing changes. 11/02/17 Ortiz saw patient with recommendations for wound vac. Awaiting hand glass cutter. 11/03/17 wound vac placed by hand glass cutter. With recommendations to change Monday, Monday, Fridays Intracranial hemorrhage, 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 Neurosurgery evaluated patient states no surgical intervention Continue PT/OT/ST Consulted as indicated patient is stable to be discharged to rehabilitation facility Case management consulted for inpatient rehabilitation, who indicated patient is homeless, no discharge disposition to inpatient rehabilitation Palliative care was consulted for recommendations. They recommended, see evaluation which has been done. Family wants aggressive measures and placement to be performed Psychiatry indicates that the patient does not have decision-making capacity to participate in her treatment or discharge plan. Patient to get in stretcher chair 3 times daily, will re-iterate to nursing staff Sepsis with leukocytosis, febrile illness, tachycardia, sacral decubitus with perineal abscesses, resolved Continue IV cefepime, IV Levaquin for pseudomonas double coverage Discontinued vancomycin IV/Zosyn IV/fluconazole IV, Continue monitor for infection Blood cultures negative for 5 days Urine culture no growth for 48 hours C. difficile culture was negative Influenza testing is negative wound culture from sacral wound with Pseudomonas Consulted infectious disease for recommendations for continued fever who recommended continuation of antibiotic treatment with Zosyn for 4 weeks, end date 11/10/17. However patient with acute renal sufficiency, antibiotics changed CT of the pelvis that showed decubitus ulcer with small abscess in the right posterior perineal region and small abscess posterior and to the left rectum Dysphagia suspect secondary to intracranial bleed, Post PEG placement 05/09/17. Speech therapy indicates patient is nothing by mouth, to continue to follow and advance diet per exam Dietary consulted and made recommendations for bolus feeding Hypertension, continue monitor blood pressure and adjust as needed Reviewing medication list is indicating that nursing staff has been holding multiple blood pressure medications on a regular basis Nifedipine 40 mg every 6 hours Apresoline 50 mg every 6 hours Catapres TTS 3 patch Metoprolol 25 mg twice daily HCTZ 25 mg daily Apresoline, clonidine, Vasotec as needed Hyperglycemia Hemoglobin A1c 6.2 Glucerna 1.5 bolus tube feeding Xeroderma on bilateral feet: Lac-Hydrin 12% Lotion continued. GI Prophylaxis: Prevacid via PEG tube DVT Prophylaxis: Sequential compression devices, chemical prophylaxis contraindicated secondary to intracranial hemorrhage Records were reviewed, awaiting case management for discharge planning. no change in current treatment plan, Discharge Planning Case management for discharge planning Kayden Kelley Nov 26, 2017 07:39
[2017-11-26 08:00] VITALS: BP 159/76; PULSE 62; RESP 18; TEMP 97.2; O2SAT 95
[2017-11-26] MEDS: METOPROLOL TARTRATE 25 MG TAB PEG SCH ×2 (09:14→21:58)
[2017-11-26] MEDS: LACTIC ACID (AMMONIUM LACTATE) 12% LOTION 225 GM BTL TOPICAL SCH ×2 (09:14→21:58)
[2017-11-26] MEDS: HYDROCHLOROTHIAZIDE 25 MG TAB PO SCH (09:14)
[2017-11-26] MEDS: LANSOPRAZOLE SOLUTAB 30 MG TAB G-TUBE SCH (09:14)
[2017-11-26 12:00] VITALS: BP 148/92; PULSE 70; RESP 20; TEMP 98.4; O2SAT 95
[2017-11-26 16:00] VITALS: BP 150/88; PULSE 72; RESP 20; TEMP 98.5; O2SAT 94
[2017-11-26 20:00] VITALS: BP 157/100; PULSE 65; RESP 16; TEMP 97.5; O2SAT 96
[2017-11-27] VITALS: BP 130/89; PULSE 62; RESP 17; TEMP 97.7; O2SAT 95
[2017-11-27] MEDS: hydrALAZINE HCL 50 MG TAB PEG SCH ×4 (00:29→19:46)
[2017-11-27] MEDS: FREE WATER G-TUBE SCH ×4 (00:30→18:00)
[2017-11-27] MEDS: NIFEdipine 20 MG CAP PEG SCH ×4 (00:30→19:46)
[2017-11-27 08:00] VITALS: BP 76/54; PULSE 79; RESP 20; TEMP 99; O2SAT 97
--- NOTE | 2017-11-27 09:09 | HHI.PR ---
Subjective Remarks Patient seen and examined today for follow-up on sacral wound, hemorrhagic CVA. Patient lying in bed comfortably. Patient is not indicating new complaints. Blood pressure labile. Afebrile Objective Vitals Vital Signs Date Time Temp Pulse Resp B/P (MAP) Pulse Ox O2 Delivery O2 Flow Rate FiO2 11/27/17 08:00 99.0 79 20 76/54 (61) 97 11/27/17 00:00 97.7 62 17 130/89 (103) 95 11/26/17 20:00 97.5 65 16 157/100 (119) 96 11/26/17 16:00 98.5 72 20 150/88 (108) 94 11/26/17 12:00 98.4 70 20 148/92 (110) 95 I/O 11/26/17 11/26/17 11/26/17 11/27/17 11/27/17 11/27/17 07:00 15:00 23:00 07:00 15:00 23:00 Intake Total 540 ml 1652 ml 360 ml Output Total 300 ml 500 ml 550 ml Balance 240 ml -500 ml 1652 ml -190 ml Intake Oral 0 ml IV Total 2 ml Tube Feeding 240 ml 960 ml Tube Irrigant 360 ml 360 ml Other 300 ml 330 ml Output Urine Total 300 ml 500 ml 550 ml Objective Remarks GENERAL: Well-developed, well-nourished, in no acute distress. Awake, responds minimally with head nods. Trying to speak HEENT: Head is normocephalic without any lesions or masses noted. Facial features are symmetric. Eyes: Conjunctivae were clear. CARDIAC: Regular rhythm, regular rate. S1/S2 are heard. 2/6 ejection, no gallops or rubs. LUNGS: Clear to auscultation bilaterally. No wheeze, rhonchi or rales. No use of accessory muscles on inspiration or expiration. ABDOMEN: Soft, nontender. Nondistended. Bowel sounds heard in all 4 quadrants. No organomegaly or masses. Negative rebound, negative guarding, PEG tube noted without any signs of infection EXTREMITIES: No edema, pulses are equal bilaterally. No cyanosis or clubbing NEUROLOGY: Patient is moving left upper extremity and able to move left foot. Patient unable to move right upper and lower extremity. SKIN: Sacral wound with wound VAC at this time Procedures Peg Tube placed 05/08/17 (Dr. De Los Santos) Urinary Catheter: Yes Assessment to: Continue Date of Insertion: Nov 08, 2017 Vascular Central Line Catheter: No A/P Assessment and Plan Sacral decubitus with perineal abscess, this will need incision, drainage and debridement Wound care nurse evaluated patient and made recommendations for wound care and surgical debridement 10/10/17, Gen. surgery was consulted for sacral decubitus. Was notified on 10/11/17 that general surgery does not do sacral decubitus debridement or surgeries 10/11/17. Case was discussed with plastic surgery who are actually not controller mechanic at this time. Dr. Lai was able to arrange for to evaluate the patient 10/12/17. Plastic surgery, , evaluated the patient who recommended Santyl at this time and possible debridement in the near future 10/13/17. Patient remains septic, CT of the pelvis was performed which did indicate multiple abscess in the right posterior perineal area and posterior and left of the rectum, 10/13/17. Discussed this with plastic surgery Dr. Lai, who indicated that these abscesses are 2 deep and to close to rectal mucosal for plastic surgery. He recommended consulting colorectal surgery 10/13/17. Dr. Franklin was controller mechanic for colorectal surgery, consult was placed to him for evaluation. Case was discussed with him on multiple occasions. He indicates that since this is connected to a sacral decubitus and since there is no communication with the rectum, this case is not appropriate for colorectal surgery, awaiting consultation report 10/15/17. Discussed with Dr. Abdullahi. He was planning a doing debridement of today, however was unable to obtain consent from family 10/17/17. Spoke with son, consents signed for I&D of sacral wound. Debridement performed, patient tolerated well. Dressing change orders in place. 10/19/17 Santyl to wound bed. EARL Pollack. Continue BID dressing changes. 11/02/17 Ortiz saw patient with recommendations for wound vac. Awaiting insemination worker. 11/03/17 wound vac placed by insemination worker. With recommendations to change Monday, Monday, Fridays Intracranial hemorrhage, 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 Neurosurgery evaluated patient states no surgical intervention Continue PT/OT/ST Consulted as indicated patient is stable to be discharged to rehabilitation facility Case management consulted for inpatient rehabilitation, who indicated patient is homeless, no discharge disposition to inpatient rehabilitation Palliative care was consulted for recommendations. They recommended, see evaluation which has been done. Family wants aggressive measures and placement to be performed Psychiatry indicates that the patient does not have decision-making capacity to participate in her treatment or discharge plan. Patient to get in stretcher chair 3 times daily, will re-iterate to nursing staff Dysphagia suspect secondary to intracranial bleed, Post PEG placement 05/09/17. Speech therapy indicates patient is nothing by mouth, to continue to follow and advance diet per exam Dietary consulted and made recommendations for bolus feeding Hypertension, continue monitor blood pressure and adjust as needed Reviewing medication list is indicating that nursing staff has been holding blood pressure medications intermittently Nifedipine 40 mg every 6 hours Apresoline 50 mg every 6 hours Catapres TTS 3 patch Metoprolol 25 mg twice daily HCTZ 25 mg daily Apresoline, clonidine, Vasotec as needed Hyperglycemia Hemoglobin A1c 6.2 Glucerna 1.5 bolus tube feeding Xeroderma on bilateral feet: Lac-Hydrin 12% Lotion continued. GI Prophylaxis: Prevacid via PEG tube DVT Prophylaxis: Sequential compression devices, chemical prophylaxis contraindicated secondary to intracranial hemorrhage Records were reviewed, no change in current treatment plan, awaiting case management for discharge planning. Discharge Planning Case management for discharge planning Kayden Kelley Nov 27, 2017 09:09
[2017-11-27] MEDS: LANSOPRAZOLE SOLUTAB 30 MG TAB G-TUBE SCH (09:29)
[2017-11-27] MEDS: METOPROLOL TARTRATE 25 MG TAB PEG SCH ×2 (09:29→20:27)
[2017-11-27] MEDS: HYDROCHLOROTHIAZIDE 25 MG TAB PO SCH (09:29)
[2017-11-27] MEDS: LACTIC ACID (AMMONIUM LACTATE) 12% LOTION 225 GM BTL TOPICAL SCH ×2 (09:30→20:27)
[2017-11-27 12:00] VITALS: BP 111/82; PULSE 77; RESP 20; TEMP 99.5; O2SAT 98
[2017-11-27 15:58] VITALS: BP 113/82; PULSE 71; RESP 20; TEMP 100.6; O2SAT 96
--- NOTE | 2017-11-27 17:28 | HHI.HCPN ---
Reason for visit a. To assist with evaluation and management of symptoms including: dysphagia , aphasia, hemiparesis, pain. b. To assist medical decision maker(s) with: better understanding of current medical conditions; weighing benefits/burdens of medical treatment options; making medical treatment decisions. (Danny New) Subjective/Interval History 62-year-old female status post hemorrhagic CVA, with long hospitalization and sacral wound status post surgical debridement 10/17/17. Patient seen and examined in the room. No signs of distress, discomfort noted. Patient is awake, nodes or shakes head to respond to questions intermittently. Seems to be denying pain by shaking head. Patient was able to follow simple command, with left upper and did not follow commands with the other extremities. Patient tracks with her eyes. Noticeable bilateral plantar flexion. Patient remains with a sacral wound VAC. Last laboratory workup on 11/16/2017. Recent imaging Last note entered by case management on 11/23/17, patient's brother King Elsy ([phone]) is now Payee. Medicaid not yet approved. Patient his a [employer] pension and will be able to get medical care when she is 64 years old. . Family/friend interactions No family at bedside. . (Danny New) Advance Directives Living Will: Never completed Health Care Surrogate: Never completed Durable Power of Pattern Keeper: Never completed (Danny New) Objective Vital Signs Date Time Temp Pulse Resp B/P (MAP) Pulse Ox O2 Delivery O2 Flow Rate FiO2 11/27/17 15:58 100.6 71 20 113/82 (92) 96 11/27/17 12:00 99.5 77 20 111/82 (92) 98 11/27/17 08:00 99.0 79 20 76/54 (61) 97 11/27/17 00:00 97.7 62 17 130/89 (103) 95 11/26/17 20:00 97.5 65 16 157/100 (119) 96 Intake & Output 11/27/17 11/27/17 07:00 19:00 Intake Total 960 ml Output Total 550 ml 750 ml Balance 410 ml -750 ml Tube Feeding 240 ml Tube Irrigant 720 ml Output Urine Total 550 ml 750 ml Physical Exam CONSTITUTIONAL/GENERAL: This is an adequately nourished patient, in no apparent distress. SKIN: No jaundice, rashes, or lesions. Sacral wound s/p debridement, wound VAC intact. Skin temperature appropriate. Not diaphoretic. HEAD: Atraumatic. Normocephalic. EYES: Pupils equal and round and reactive. No scleral icterus. No injection or drainage. NECK: Trachea midline. Supple, nontender. CARDIOVASCULAR: Regular rate and rhythm without murmurs, gallops, or rubs. No JVD. Peripheral pulses symmetric. RESPIRATORY/CHEST: Symmetric, unlabored respirations. Clear to auscultation. Breath sounds equal bilaterally. No wheezes, rales, or rhonchi. GASTROINTESTINAL: Abdomen soft, non-tender, nondistended. No guarding. Bowel sounds present. PEG to LUQ currently clamped. Fecal collection device in place- with liquid brown stool GENITOURINARY: Without palpable bladder distension. Cruz catheter in place. MUSCULOSKELETAL: Bilateral foot drop, no edema, has podus boots in place. NEUROLOGICAL: Arouses to verbal stimuli. Right sided hemiparesis, flaccid. Follows simple command with left upper extremity only. Attempts to mouth some words PSYCHIATRIC: No obvious anxiety/depression noted. . (Danny New) Diagnostic Tests Procedures 05/08/17: PEG placement . (Danny New) Assessment and Plan Disease Oriented Problem List: (1) Intracranial hemorrhage Comment: left thalamic hemorrhage, due to hypertensive emergency. (2) Malignant hypertension Comment: complicated by non compliance with medication due to delusion and paranoia (3) Unspecified psychosis (4) Delusional disorder (5) Hemiparesis Comment: right (6) Psychosis Symptom Scale: (1) Dysphagia 0-10 Scale: Unable to quantify (2) Aphasia 0-10 Scale: Unable to quantify (3) Hemiparesis 0-10 Scale: Unable to quantify Comment: Recent CVA . Pertinent Non-Medical Issues Psychosocial:hx of delusions, paranoia, bruno act, non-compliance, now with thalamic stroke. Pt also is pending SSI. Spiritual:advent Legal:If not capacitated, surviving children, pt's daughter and son would be health care proxy. Son appears to be difficult to reach, per social welfare administrator. Ethical issues impacting care:none at this time. Important Contacts Aleena Rodrigo [phone]. Number is currently disconnected. Henri Birmingham [phone], . Prognosis Patient with psychiatric hx of delusions, paranoia, has extensive hospital stay of 160 plus days after a left thalamic stroke. Pt is peg tube dependent, with hemiperisis; but has been relatively stable since April. She is at risk of recurrent hospitalization and setbacks. However given no recent pneumonia episodes, or major complications, I feel given pt continue tube feedings, prognosis is > 6 months. Albumin is 3.2 since last check on 11/02/2017. . Code Status: Full Code Plan PLAN: Legal decision maker: She has 2 children who serve as joint proxy. Goals: Aggressive. CODE STATUS: FULL CODE SYMPTOMS: * Dysphasia: Repeatedly failed swallow evaluation, ST signed off. PEG tube placed, tolerating bolus feedings of 240 mL 3 times a day and 160 mL at at bedtime. Admission weight 62.9 KGs. Weight currently 64.7 KG is as of . No recommendations * Aphasia: Secondary to left thalamus stroke. Able to nod her head intermittently to questions, but not consistently. * Right hemiparesis: Continues physical therapy. * Pain: Likely source of pain is bedbound status, invasive lines, large tunnelled sacral decubitus, wound VAC in place. Does not appear to be in pain during visit. Patient remains a placement issue pending Social Security. Last note entered by case management on 11/23/17, patient's brother King Elsy ([phone]) is now Payee. Medicaid not yet approved. Patient his a [employer] pension and will be able to get medical care when she is 64 years old Palliative care will continue to follow the patient during hospital course as condition evolves, to assist patient/decision-maker with understanding of their medical conditions, weighing benefits/burdens of treatment options, for clarification of goals of treatment. Additionally will assist with any symptoms of palliative concern. . (Danny New) Attestation To help prompt me to consider important information that might be impacting today's encounter and assessment, information from prior notes written by myself or my colleagues may have been "brought forward" into today's note. My signature on this note, however, is an attestation that I personally performed the exam, history, and/or decision-making noted today, and, unless otherwise indicated, the interactions with patient, family, and staff as well as the review of records all occurred today. I also attest that the listed assessment and stated plan reflect my best clinical judgment today based on the combination of historical information, prior notes, and today's exam/ interactions. When time spent is documented, it refers only to time spent today by the signer, or if indicated, combined time spent today by collaborating physician/nurse practitioner. (Danny New) Collaborating MD Comments Chart reviewed. Case discussed with palliative care APPLIQUER. Above note reviewed and I concur. . (Otoniel Angelo MD) Danny New Nov 27, 2017 17:28 Otoniel Angelo MD Dec 22, 2017 14:48
[2017-11-27 20:00] VITALS: BP 108/75; PULSE 100; RESP 16; TEMP 98.6; O2SAT 97
[2017-11-28] VITALS: BP 119/87; PULSE 75; RESP 16; TEMP 96.5; O2SAT 99
[2017-11-28] MEDS: FREE WATER G-TUBE SCH ×4 (00:31→18:28)
[2017-11-28] MEDS: NIFEdipine 20 MG CAP PEG SCH ×4 (00:32→18:18)
[2017-11-28] MEDS: hydrALAZINE HCL 50 MG TAB PEG SCH ×4 (00:32→18:15)
[2017-11-28 08:00] VITALS: BP 133/89; PULSE 57; RESP 20; TEMP 97.8; O2SAT 97
[2017-11-28] MEDS: LANSOPRAZOLE SOLUTAB 30 MG TAB G-TUBE SCH (08:49)
[2017-11-28] MEDS: HYDROCHLOROTHIAZIDE 25 MG TAB PO SCH (08:50)
[2017-11-28] MEDS: METOPROLOL TARTRATE 25 MG TAB PEG SCH ×2 (08:50→22:57)
[2017-11-28] MEDS: LACTIC ACID (AMMONIUM LACTATE) 12% LOTION 225 GM BTL TOPICAL SCH ×2 (08:53→22:58)
--- NOTE | 2017-11-28 10:23 | HHI.PR ---
Subjective Remarks Follow-up hemorrhagic CVA and sacral wound. Patient seen and examined, lying in bed comfortably, RN at bedside. No reports of any acute events overnight. Patient denies pain. No change in clinical condition. Continued wound VAC. Objective Vitals Vital Signs Date Time Temp Pulse Resp B/P (MAP) Pulse Ox O2 Delivery O2 Flow Rate FiO2 11/28/17 08:00 97.8 57 20 133/89 (104) 97 11/28/17 00:00 96.5 75 16 119/87 (98) 99 11/27/17 20:00 98.6 100 16 108/75 (86) 97 11/27/17 15:58 100.6 71 20 113/82 (92) 96 11/27/17 12:00 99.5 77 20 111/82 (92) 98 I/O 11/27/17 11/27/17 11/27/17 11/28/17 11/28/17 11/28/17 07:00 15:00 23:00 07:00 15:00 23:00 Intake Total 360 ml Output Total 550 ml 750 ml 1000 ml 550 ml Balance -190 ml -750 ml -1000 ml -550 ml Tube Irrigant 360 ml Output Urine Total 550 ml 750 ml 1000 ml 550 ml # Bowel Movements 0 0 Imaging Last Impressions Upper Extremity Ultrasound 11/06/17 0000 Signed Impressions: Service Date/Time: Monday, November 06, 2017 14:17 - CONCLUSION: Normal examination. Kelby Perez MD Pelvis CT 10/13/17 0000 Signed Impressions: Service Date/Time: Friday, October 13, 2017 12:02 - CONCLUSION: 1. Decubitus ulcer with small abscess in the right posterior perineal region measuring 3.1 x 4.6 cm. There is also a small abscess posterior and to the left of the rectum measuring 3.2 x 2.3 cm. Jann Weber MD Chest X-Ray 10/12/17 0000 Signed Impressions: Service Date/Time: October 12:18 - CONCLUSION: No acute disease. Jann Weber MD Head CT 04/25/17 0000 Signed Impressions: Service Date/Time: Tuesday, April 25, 2017 18:02 - CONCLUSION: 1. Evolving left thalamic hematoma. No new hemorrhage. Adi Quarles MD Abdomen X-Ray 04/12/17 1538 Signed Impressions: Service Date/Time: Wednesday, April 12, 2017 17:29 - CONCLUSION: Nonobstructive bowel gas pattern. Suresh Zapata MD Neck CTA 04/10/17 0000 Signed Impressions: Service Date/Time: Monday, April 10, 2017 22:28 - CONCLUSION: The internal carotid arteries are normal bilaterally. No significant atherosclerotic disease is noted. Eliud Du MD Head CTA 04/10/17 0000 Signed Impressions: Service Date/Time: Monday, April 10, 2017 22:50 - CONCLUSION: Mild dilatation of the basilar tip without discrete aneurysm. Some narrowing of the left middle cerebral branch after the bifurcation. Prominent left thalamic hemorrhage. Eliud Du MD Objective Remarks GENERAL: Well-developed, well-nourished, in no acute distress. Awake, responds minimally with head nods, tracking with eyes. SKIN: Stage IV sacral wound noted, wound vac in place. Right upper extremity swelling improved. Now left arm with swelling. HEENT: Head is normocephalic without any lesions or masses noted. Facial features are symmetric. Eyes: Conjunctivae were clear. Continue to monitor. CARDIAC: Regular rhythm, regular rate. S1/S2 are heard. 2/6 ejection, no gallops or rubs. LUNGS: Clear to auscultation bilaterally. No wheeze, rhonchi or rales. No use of accessory muscles on inspiration or expiration. ABDOMEN: Soft, nontender. Nondistended. Bowel sounds heard in all 4 quadrants. No organomegaly or masses. Negative guarding. PEG tube noted without any signs of infection, skin c/d/i, dressing intact. No erythema. EXTREMITIES: No edema, pulses are equal bilaterally. No cyanosis or clubbing NEUROLOGY: Patient is moving left upper extremity and able to move left foot. Patient unable to move right upper and lower extremity. Procedures Peg Tube placed 05/08/17 (Dr. De Los Santos) Urinary Catheter: Yes Assessment to: Continue Cruz insert reason: Stage III/IV Press Ulcer Date of Insertion: Nov 08, 2017 A/P Assessment and Plan Sacral decubitus with perineal abscess, this will need incision, drainage and debridement Wound care nurse evaluated patient and made recommendations for wound care and surgical debridement 10/10/17, Gen. surgery was consulted for sacral decubitus. Was notified on 10/11/17 that general surgery does not do sacral decubitus debridement or surgeries 10/11/17. Case was discussed with plastic surgery who are actually not wetlands conservation laborer at this time. Dr. Lai was able to arrange for to evaluate the patient 10/12/17. Plastic surgery, , evaluated the patient who recommended Santyl at this time and possible debridement in the near future 10/13/17. Patient remains septic, CT of the pelvis was performed which did indicate multiple abscess in the right posterior perineal area and posterior and left of the rectum, 10/13/17. Discussed this with plastic surgery Dr. Lai, who indicated that these abscesses are 2 deep and to close to rectal mucosal for plastic surgery. He recommended consulting colorectal surgery 10/13/17. Dr. Franklin was wetlands conservation laborer for colorectal surgery, consult was placed to him for evaluation. Case was discussed with him on multiple occasions. He indicates that since this is connected to a sacral decubitus and since there is no communication with the rectum, this case is not appropriate for colorectal surgery, awaiting consultation report 10/15/17. Discussed with Dr. Abdullahi. He was planning a doing debridement of today, however was unable to obtain consent from family 10/17/17. Spoke with son, consents signed for I&D of sacral wound. Debridement performed, patient tolerated well. Dressing change orders in place. 10/19/17 Santyl to wound bed. EARL Pollack. Continue BID dressing changes. 11/02/17 Ortiz saw patient with recommendations for wound vac. Awaiting diplomatic interpreter. 11/03/17 wound vac placed by diplomatic interpreter. 11/15/17 wound VAC changed today. 11/17/17 wound VAC changed today. 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 Neurosurgery evaluated patient states no surgical intervention Continue PT/OT/ST Consulted as indicated patient is stable to be discharged to rehabilitation facility Case management consulted for inpatient rehabilitation, who indicated patient is homeless, no discharge disposition to inpatient rehabilitation Palliative care was consulted for recommendations. They recommended, see evaluation which has been done. Family wants aggressive measures and placement to be performed. Psychiatry indicates that the patient does not have decision-making capacity to participate in her treatment or discharge plan. Patient to get in stretcher chair 3 times daily, will re-iterate to nursing staff Sepsis with leukocytosis, febrile illness, tachycardia, sacral decubitus with perineal abscesses, resolved Status post IV antibiotics Continue monitor for infection Blood cultures negative Urine culture no growth C. difficile culture was negative Influenza testing is negative Wound culture from sacral wound with Pseudomonas Infectious disease had followed patient. CT of the pelvis that showed decubitus ulcer with small abscess in the right posterior perineal region and small abscess posterior and to the left rectum Dysphagia suspect secondary to intracranial bleed Post PEG placement 05/09/17. 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 GI Prophylaxis: Prevacid via PEG tube DVT Prophylaxis: Sequential compression devices, chemical prophylaxis contraindicated secondary to intracranial hemorrhage Palliative care: Reconsulted palliative care this time in light of the patient' s worsening condition, family still wishing full aggressive management. Records were reviewed. No change in current treatment plan. Awaiting case management for discharge planning Discharge Planning Patient is stable to be discharged to rehabilitation facility. Case management assisting. Veena Calvillo Nov 28, 2017 10:23
[2017-11-28 12:00] VITALS: BP 107/56; PULSE 72; RESP 20; TEMP 99.5; O2SAT 97
[2017-11-28] MEDS: REMOVE OLD CATAPRES (CLONIDINE) PATCH T-DERMAL SCH (15:00)
[2017-11-28 16:00] VITALS: BP 99/67; PULSE 72; RESP 18; TEMP 99.5; O2SAT 100
[2017-11-28] MEDS: cloNIDine HCL 0.3 MG/24 HR PATCH T-DERMAL SCH (18:27)
[2017-11-28 20:00] VITALS: BP 111/65; PULSE 102; RESP 16; TEMP 98.8; O2SAT 100
[2017-11-29] MEDS: hydrALAZINE HCL 50 MG TAB PEG SCH ×4 (01:11→18:03)
[2017-11-29] MEDS: NIFEdipine 20 MG CAP PEG SCH ×4 (01:11→18:03)
[2017-11-29] MEDS: FREE WATER G-TUBE SCH ×4 (05:13→18:00)
[2017-11-29 07:50] VITALS: BP 95/58; PULSE 87; RESP 16; TEMP 98.1; O2SAT 100
[2017-11-29] MEDS: HYDROCHLOROTHIAZIDE 25 MG TAB PO SCH (09:00)
[2017-11-29] MEDS: LACTIC ACID (AMMONIUM LACTATE) 12% LOTION 225 GM BTL TOPICAL SCH ×2 (09:00→23:01)
[2017-11-29] MEDS: METOPROLOL TARTRATE 25 MG TAB PEG SCH ×2 (09:00→23:01)
[2017-11-29] MEDS: LANSOPRAZOLE SOLUTAB 30 MG TAB G-TUBE SCH (09:26)
[2017-11-29 11:50] VITALS: BP 116/98; PULSE 98
--- NOTE | 2017-11-29 15:18 | HHI.PR ---
Subjective Remarks Follow-up hemorrhagic CVA and sacral wound. Patient seen and examined, son at bedside and updated. Patient does not appear to be in any apparent distress. No acute events overnight. No change in clinical condition. Vital signs stable. Objective Vitals Vital Signs Date Time Temp Pulse Resp B/P (MAP) Pulse Ox O2 Delivery O2 Flow Rate FiO2 11/29/17 07:50 98.1 87 16 95/58 (70) 100 11/28/17 20:00 98.8 102 16 111/65 (80) 100 11/28/17 16:00 99.5 72 18 99/67 (78) 100 I/O 11/28/17 11/28/17 11/28/17 11/29/17 11/29/17 11/29/17 07:00 15:00 23:00 07:00 15:00 23:00 Intake Total 980 ml 740 ml 570 ml Output Total 550 ml 450 ml 800 ml Balance -550 ml 530 ml 740 ml -230 ml Tube Feeding 480 ml 240 ml 240 ml Tube Irrigant 500 ml 500 ml Other 330 ml Output Urine Total 550 ml 450 ml 800 ml # Bowel Movements 0 0 Imaging Last Impressions Upper Extremity Ultrasound 11/06/17 0000 Signed Impressions: Service Date/Time: Monday, November 06, 2017 14:17 - CONCLUSION: Normal examination. K. Byron Perez MD Pelvis CT 10/13/17 0000 Signed Impressions: Service Date/Time: Friday, October 13, 2017 12:02 - CONCLUSION: 1. Decubitus ulcer with small abscess in the right posterior perineal region measuring 3.1 x 4.6 cm. There is also a small abscess posterior and to the left of the rectum measuring 3.2 x 2.3 cm. Jann Weber MD Chest X-Ray 10/12/17 0000 Signed Impressions: Service Date/Time: October 12:18 - CONCLUSION: No acute disease. Jann Weber MD Head CT 04/25/17 0000 Signed Impressions: Service Date/Time: Tuesday, April 25, 2017 18:02 - CONCLUSION: 1. Evolving left thalamic hematoma. No new hemorrhage. Adi Quarles MD Abdomen X-Ray 04/12/17 1538 Signed Impressions: Service Date/Time: Wednesday, April 12, 2017 17:29 - CONCLUSION: Nonobstructive bowel gas pattern. Suresh Zapata MD Neck CTA 04/10/17 0000 Signed Impressions: Service Date/Time: Monday, April 10, 2017 22:28 - CONCLUSION: The internal carotid arteries are normal bilaterally. No significant atherosclerotic disease is noted. Eliud Du MD Head CTA 04/10/17 0000 Signed Impressions: Service Date/Time: Monday, April 10, 2017 22:50 - CONCLUSION: Mild dilatation of the basilar tip without discrete aneurysm. Some narrowing of the left middle cerebral branch after the bifurcation. Prominent left thalamic hemorrhage. Eliud Du MD Objective Remarks GENERAL: Well-developed, well-nourished, in no acute distress. Awake, responds minimally with head nods, tracking with eyes. SKIN: Stage IV sacral wound noted, wound vac in place. Right upper extremity swelling improved. Now left arm with swelling. HEENT: Head is normocephalic without any lesions or masses noted. Facial features are symmetric. Eyes: Conjunctivae were clear. Continue to monitor. CARDIAC: Regular rhythm, regular rate. S1/S2 are heard. 2/6 ejection, no gallops or rubs. LUNGS: Clear to auscultation bilaterally. No wheeze, rhonchi or rales. No use of accessory muscles on inspiration or expiration. ABDOMEN: Soft, nontender. Nondistended. Bowel sounds heard in all 4 quadrants. No organomegaly or masses. Negative guarding. PEG tube noted without any signs of infection, skin c/d/i, dressing intact. No erythema. EXTREMITIES: No edema, pulses are equal bilaterally. No cyanosis or clubbing NEUROLOGY: Patient is moving left upper extremity and able to move left foot. Patient unable to move right upper and lower extremity. Procedures Peg Tube placed 05/08/17 (Dr. De Los Santos) Urinary Catheter: Yes Assessment to: Continue Cruz insert reason: Stage III/IV Press Ulcer Date of Insertion: Nov 08, 2017 A/P Assessment and Plan Sacral decubitus with perineal abscess, this will need incision, drainage and debridement Wound care nurse evaluated patient and made recommendations for wound care and surgical debridement 10/10/17, Gen. surgery was consulted for sacral decubitus. Was notified on 10/11/17 that general surgery does not do sacral decubitus debridement or surgeries 10/11/17. Case was discussed with plastic surgery who are actually not merchandising execution manager at this time. Dr. Lai was able to arrange for to evaluate the patient 10/12/17. Plastic surgery, , evaluated the patient who recommended Santyl at this time and possible debridement in the near future 10/13/17. Patient remains septic, CT of the pelvis was performed which did indicate multiple abscess in the right posterior perineal area and posterior and left of the rectum, 10/13/17. Discussed this with plastic surgery Dr. Lai, who indicated that these abscesses are 2 deep and to close to rectal mucosal for plastic surgery. He recommended consulting colorectal surgery 10/13/17. Dr. Franklin was merchandising execution manager for colorectal surgery, consult was placed to him for evaluation. Case was discussed with him on multiple occasions. He indicates that since this is connected to a sacral decubitus and since there is no communication with the rectum, this case is not appropriate for colorectal surgery, awaiting consultation report 10/15/17. Discussed with Dr. Abdullahi. He was planning a doing debridement of today, however was unable to obtain consent from family 10/17/17. Spoke with son, consents signed for I&D of sacral wound. Debridement performed, patient tolerated well. Dressing change orders in place. 10/19/17 Santyl to wound bed. EARL Pollack. Continue BID dressing changes. 11/02/17 Ortiz saw patient with recommendations for wound vac. Awaiting motorcycle tester. 11/03/17 wound vac placed by motorcycle tester. 11/15/17 wound VAC changed today. 11/17/17 wound VAC changed today. 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 Neurosurgery evaluated patient states no surgical intervention Continue PT/OT/ST Consulted as indicated patient is stable to be discharged to rehabilitation facility Case management consulted for inpatient rehabilitation, who indicated patient is homeless, no discharge disposition to inpatient rehabilitation Palliative care was consulted for recommendations. They recommended, see evaluation which has been done. Family wants aggressive measures and placement to be performed. Psychiatry indicates that the patient does not have decision-making capacity to participate in her treatment or discharge plan. Patient to get in stretcher chair 3 times daily, will re-iterate to nursing staff Sepsis with leukocytosis, febrile illness, tachycardia, sacral decubitus with perineal abscesses, resolved Status post IV antibiotics Continue monitor for infection Blood cultures negative Urine culture no growth C. difficile culture was negative Influenza testing is negative Wound culture from sacral wound with Pseudomonas Infectious disease had followed patient. CT of the pelvis that showed decubitus ulcer with small abscess in the right posterior perineal region and small abscess posterior and to the left rectum Dysphagia suspect secondary to intracranial bleed Post PEG placement 05/09/17. 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 GI Prophylaxis: Prevacid via PEG tube DVT Prophylaxis: Sequential compression devices, chemical prophylaxis contraindicated secondary to intracranial hemorrhage Palliative care: Reconsulted palliative care this time in light of the patient' s worsening condition, family still wishing full aggressive management. Records were reviewed. No change in current treatment plan. Awaiting case management for discharge planning Discharge Planning Patient is stable to be discharged to rehabilitation facility. Case management assisting. Veena Calvillo Nov 29, 2017 15:18
[2017-11-29 15:50] VITALS: BP 132/86; PULSE 99
[2017-11-29 20:00] VITALS: BP 122/82; PULSE 100; RESP 20; TEMP 98.5; O2SAT 98
[2017-11-30] MEDS: hydrALAZINE HCL 50 MG TAB PEG SCH ×5 (00:31→18:00)
[2017-11-30] MEDS: NIFEdipine 20 MG CAP PEG SCH ×5 (00:31→18:00)
[2017-11-30 05:05] VITALS: BP 154/96; PULSE 85; RESP 18
[2017-11-30] MEDS: FREE WATER G-TUBE SCH ×4 (05:12→16:08)
[2017-11-30 08:00] VITALS: BP 128/79; PULSE 102; RESP 14; TEMP 96.1; O2SAT 95
[2017-11-30] MEDS: LACTIC ACID (AMMONIUM LACTATE) 12% LOTION 225 GM BTL TOPICAL SCH (10:06)
[2017-11-30] MEDS: HYDROCHLOROTHIAZIDE 25 MG TAB PO SCH (10:06)
[2017-11-30] MEDS: METOPROLOL TARTRATE 25 MG TAB PEG SCH ×2 (10:06→22:12)
[2017-11-30] MEDS: LANSOPRAZOLE SOLUTAB 30 MG TAB G-TUBE SCH (10:06)
[2017-11-30 12:00] VITALS: BP 137/95; PULSE 80; RESP 14; TEMP 96.5; O2SAT 99
--- NOTE | 2017-11-30 13:37 | HHI.PR ---
Subjective Remarks Follow-up CVA hemorrhage and sacral wound. Patient seen and examined, awake and alert actually smiling today. Tracking with eyes. No reports of any acute events overnight. Continued wound VAC. Vital signs are stable. Afebrile. Objective Vitals Vital Signs Date Time Temp Pulse Resp B/P (MAP) Pulse Ox O2 Delivery O2 Flow Rate FiO2 11/30/17 08:00 96.1 102 14 128/79 (95) 95 11/30/17 05:05 85 18 154/96 (115) 11/29/17 20:00 98.5 100 20 122/82 (95) 98 11/29/17 15:50 99 132/86 (101) I/O 11/29/17 11/29/17 11/29/17 11/30/17 11/30/17 11/30/17 07:00 15:00 23:00 07:00 15:00 23:00 Intake Total 570 ml 700 ml 450 ml 600 ml Output Total 800 ml 700 ml 400 ml Balance -230 ml 700 ml -250 ml 200 ml Intake Oral 0 ml Tube Feeding 240 ml 480 ml 240 ml 240 ml Tube Irrigant 220 ml 210 ml Other 330 ml 360 ml Output Urine Total 800 ml 700 ml 400 ml # Bowel Movements 0 0 0 Imaging Last Impressions Upper Extremity Ultrasound 11/06/17 0000 Signed Impressions: Service Date/Time: Monday, November 06, 2017 14:17 - CONCLUSION: Normal examination. Kelby Perez MD Pelvis CT 10/13/17 0000 Signed Impressions: Service Date/Time: Friday, October 13, 2017 12:02 - CONCLUSION: 1. Decubitus ulcer with small abscess in the right posterior perineal region measuring 3.1 x 4.6 cm. There is also a small abscess posterior and to the left of the rectum measuring 3.2 x 2.3 cm. Jann Weber MD Chest X-Ray 10/12/17 0000 Signed Impressions: Service Date/Time: October 12:18 - CONCLUSION: No acute disease. Jann Weber MD Head CT 04/25/17 0000 Signed Impressions: Service Date/Time: Tuesday, April 25, 2017 18:02 - CONCLUSION: 1. Evolving left thalamic hematoma. No new hemorrhage. Adi Quarles MD Abdomen X-Ray 04/12/17 1538 Signed Impressions: Service Date/Time: Wednesday, April 12, 2017 17:29 - CONCLUSION: Nonobstructive bowel gas pattern. Suresh Zapata MD Neck CTA 04/10/17 0000 Signed Impressions: Service Date/Time: Monday, April 10, 2017 22:28 - CONCLUSION: The internal carotid arteries are normal bilaterally. No significant atherosclerotic disease is noted. Eliud Du MD Head CTA 04/10/17 0000 Signed Impressions: Service Date/Time: Monday, April 10, 2017 22:50 - CONCLUSION: Mild dilatation of the basilar tip without discrete aneurysm. Some narrowing of the left middle cerebral branch after the bifurcation. Prominent left thalamic hemorrhage. Eliud Du MD Objective Remarks GENERAL: Well-developed, well-nourished, in no acute distress. Awake, responds minimally with head nods, tracking with eyes. SKIN: Stage IV sacral wound noted, wound vac in place. Right upper extremity swelling improved. Now left arm with swelling. HEENT: Head is normocephalic without any lesions or masses noted. Facial features are symmetric. Eyes: Conjunctivae were clear. Continue to monitor. CARDIAC: Regular rhythm, regular rate. S1/S2 are heard. 2/6 ejection, no gallops or rubs. LUNGS: Clear to auscultation bilaterally. No wheeze, rhonchi or rales. No use of accessory muscles on inspiration or expiration. ABDOMEN: Soft, nontender. Nondistended. Bowel sounds heard in all 4 quadrants. No organomegaly or masses. Negative guarding. PEG tube noted without any signs of infection, skin c/d/i, dressing intact. No erythema. EXTREMITIES: No edema, pulses are equal bilaterally. No cyanosis or clubbing NEUROLOGY: Patient is moving left upper extremity and able to move left foot. Patient unable to move right upper and lower extremity. Procedures Peg Tube placed 05/08/17 (Dr. De Los Santos) Urinary Catheter: Yes Assessment to: Continue Cruz insert reason: Stage III/IV Press Ulcer Date of Insertion: Nov 08, 2017 A/P Assessment and Plan Sacral decubitus with perineal abscess, this will need incision, drainage and debridement Wound care nurse evaluated patient and made recommendations for wound care and surgical debridement 10/10/17, Gen. surgery was consulted for sacral decubitus. Was notified on 10/11/17 that general surgery does not do sacral decubitus debridement or surgeries 10/11/17. Case was discussed with plastic surgery who are actually not radiation technician at this time. Dr. Lai was able to arrange for to evaluate the patient 10/12/17. Plastic surgery, , evaluated the patient who recommended Santyl at this time and possible debridement in the near future 10/13/17. Patient remains septic, CT of the pelvis was performed which did indicate multiple abscess in the right posterior perineal area and posterior and left of the rectum, 10/13/17. Discussed this with plastic surgery Dr. Lai, who indicated that these abscesses are 2 deep and to close to rectal mucosal for plastic surgery. He recommended consulting colorectal surgery 10/13/17. Dr. Franklin was radiation technician for colorectal surgery, consult was placed to him for evaluation. Case was discussed with him on multiple occasions. He indicates that since this is connected to a sacral decubitus and since there is no communication with the rectum, this case is not appropriate for colorectal surgery, awaiting consultation report 10/15/17. Discussed with Dr. Abdullahi. He was planning a doing debridement of today, however was unable to obtain consent from family 10/17/17. Spoke with son, consents signed for I&D of sacral wound. Debridement performed, patient tolerated well. Dressing change orders in place. 10/19/17 Santyl to wound bed. EARL Pollack. Continue BID dressing changes. 11/02/17 Ortiz saw patient with recommendations for wound vac. Awaiting business improvement manager. 11/03/17 wound vac placed by business improvement manager. 11/15/17 wound VAC changed today. 11/17/17 wound VAC changed today. 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 Neurosurgery evaluated patient states no surgical intervention Continue PT/OT/ST Consulted as indicated patient is stable to be discharged to rehabilitation facility Case management consulted for inpatient rehabilitation, who indicated patient is homeless, no discharge disposition to inpatient rehabilitation Palliative care was consulted for recommendations. They recommended, see evaluation which has been done. Family wants aggressive measures and placement to be performed. Psychiatry indicates that the patient does not have decision-making capacity to participate in her treatment or discharge plan. Patient to get in stretcher chair 3 times daily, will re-iterate to nursing staff Sepsis with leukocytosis, febrile illness, tachycardia, sacral decubitus with perineal abscesses, resolved Status post IV antibiotics Continue monitor for infection Blood cultures negative Urine culture no growth C. difficile culture was negative Influenza testing is negative Wound culture from sacral wound with Pseudomonas Infectious disease had followed patient. CT of the pelvis that showed decubitus ulcer with small abscess in the right posterior perineal region and small abscess posterior and to the left rectum Dysphagia suspect secondary to intracranial bleed Post PEG placement 05/09/17. 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 GI Prophylaxis: Prevacid via PEG tube DVT Prophylaxis: Sequential compression devices, chemical prophylaxis contraindicated secondary to intracranial hemorrhage Palliative care: Reconsulted palliative care this time in light of the patient' s worsening condition, family still wishing full aggressive management. Records were reviewed. No change in current treatment plan. Awaiting case management for discharge planning Discharge Planning Patient is stable to be discharged to rehabilitation facility. Case management assisting. Veena Calvillo Nov 30, 2017 13:37
[2017-11-30 20:00] VITALS: BP 143/100; PULSE 93; RESP 17; TEMP 98.8; O2SAT 95
[2017-12-01] VITALS: BP 131/89; PULSE 90; RESP 17; TEMP 98.2; O2SAT 94
[2017-12-01] MEDS: LACTIC ACID (AMMONIUM LACTATE) 12% LOTION 225 GM BTL TOPICAL SCH ×3 (01:16→20:08)
[2017-12-01] MEDS: NIFEdipine 20 MG CAP PEG SCH ×4 (06:00→17:55)
[2017-12-01] MEDS: hydrALAZINE HCL 50 MG TAB PEG SCH ×4 (06:00→17:55)
[2017-12-01] MEDS: FREE WATER G-TUBE SCH ×4 (06:08→17:55)
[2017-12-01 08:00] VITALS: BP 146/96; PULSE 88; RESP 14; TEMP 96; O2SAT 100
--- NOTE | 2017-12-01 10:08 | HHI.PR ---
Subjective Remarks Follow-up CVA hemorrhage and sacral wound. Patient seen and examined, lying in bed comfortably awake. Denies any pain. No change in clinical condition. No reports of any acute events overnight. Vital signs are stable. Objective Vitals Vital Signs Date Time Temp Pulse Resp B/P (MAP) Pulse Ox O2 Delivery O2 Flow Rate FiO2 12/01/17 00:00 98.2 90 17 131/89 (103) 94 11/30/17 20:00 98.8 93 17 143/100 (114) 95 11/30/17 12:00 96.5 80 14 137/95 (109) 99 I/O 11/30/17 11/30/17 11/30/17 12/01/17 12/01/17 12/01/17 07:00 15:00 23:00 07:00 15:00 23:00 Intake Total 600 ml Output Total 400 ml 650 ml 250 ml Balance 200 ml -650 ml -250 ml Intake Oral 0 ml Tube Feeding 240 ml Other 360 ml Output Urine Total 400 ml 650 ml 250 ml # Bowel Movements 0 Imaging Last Impressions Upper Extremity Ultrasound 11/06/17 0000 Signed Impressions: Service Date/Time: Monday, November 06, 2017 14:17 - CONCLUSION: Normal examination. K. Byron Perez MD Pelvis CT 10/13/17 0000 Signed Impressions: Service Date/Time: Friday, October 13, 2017 12:02 - CONCLUSION: 1. Decubitus ulcer with small abscess in the right posterior perineal region measuring 3.1 x 4.6 cm. There is also a small abscess posterior and to the left of the rectum measuring 3.2 x 2.3 cm. Jann Weber MD Chest X-Ray 10/12/17 0000 Signed Impressions: Service Date/Time: October 12:18 - CONCLUSION: No acute disease. Jann Weber MD Head CT 04/25/17 0000 Signed Impressions: Service Date/Time: Tuesday, April 25, 2017 18:02 - CONCLUSION: 1. Evolving left thalamic hematoma. No new hemorrhage. Adi Quarles MD Abdomen X-Ray 04/12/17 1538 Signed Impressions: Service Date/Time: Wednesday, April 12, 2017 17:29 - CONCLUSION: Nonobstructive bowel gas pattern. Suresh Zapata MD Neck CTA 04/10/17 0000 Signed Impressions: Service Date/Time: Monday, April 10, 2017 22:28 - CONCLUSION: The internal carotid arteries are normal bilaterally. No significant atherosclerotic disease is noted. Eliud Du MD Head CTA 04/10/17 0000 Signed Impressions: Service Date/Time: Monday, April 10, 2017 22:50 - CONCLUSION: Mild dilatation of the basilar tip without discrete aneurysm. Some narrowing of the left middle cerebral branch after the bifurcation. Prominent left thalamic hemorrhage. Eliud Du MD Objective Remarks GENERAL: Well-developed, well-nourished, in no acute distress. Awake, responds minimally with head nods, tracking with eyes. SKIN: Stage IV sacral wound noted, wound vac in place. Right upper extremity swelling improved. Now left arm with swelling. HEENT: Head is normocephalic without any lesions or masses noted. Facial features are symmetric. Eyes: Conjunctivae were clear. Continue to monitor. CARDIAC: Regular rhythm, regular rate. S1/S2 are heard. 2/6 ejection, no gallops or rubs. LUNGS: Clear to auscultation bilaterally. No wheeze, rhonchi or rales. No use of accessory muscles on inspiration or expiration. ABDOMEN: Soft, nontender. Nondistended. Bowel sounds heard in all 4 quadrants. No organomegaly or masses. Negative guarding. PEG tube noted without any signs of infection, skin c/d/i, dressing intact. No erythema. EXTREMITIES: No edema, pulses are equal bilaterally. No cyanosis or clubbing NEUROLOGY: Patient is moving left upper extremity and able to move left foot. Patient unable to move right upper and lower extremity. Procedures Peg Tube placed 05/08/17 (Dr. De Los Santos) Urinary Catheter: Yes Assessment to: Continue Cruz insert reason: Stage III/IV Press Ulcer Date of Insertion: Nov 08, 2017 A/P Assessment and Plan Sacral decubitus with perineal abscess Wound care nurse evaluated patient and made recommendations for wound care and surgical debridement 10/10/17, Gen. surgery was consulted for sacral decubitus. Was notified on 10/11/17 that general surgery does not do sacral decubitus debridement or surgeries 10/11/17. Case was discussed with plastic surgery who are actually not electronic warfare technician at this time. Dr. Lai was able to arrange for to evaluate the patient 10/12/17. Plastic surgery, , evaluated the patient who recommended Santyl at this time and possible debridement in the near future 10/13/17. Patient remains septic, CT of the pelvis was performed which did indicate multiple abscess in the right posterior perineal area and posterior and left of the rectum, 10/13/17. Discussed this with plastic surgery Dr. Lai, who indicated that these abscesses are 2 deep and to close to rectal mucosal for plastic surgery. He recommended consulting colorectal surgery 10/13/17. Dr. Franklin was electronic warfare technician for colorectal surgery, consult was placed to him for evaluation. Case was discussed with him on multiple occasions. He indicates that since this is connected to a sacral decubitus and since there is no communication with the rectum, this case is not appropriate for colorectal surgery, awaiting consultation report 10/15/17. Discussed with Dr. Abdullahi. He was planning a doing debridement of today, however was unable to obtain consent from family 10/17/17. Spoke with son, consents signed for I&D of sacral wound. Debridement performed, patient tolerated well. Dressing change orders in place. 10/19/17 Santyl to wound bed. DC Ranjeet. Continue BID dressing changes. 11/02/17 Ortiz saw patient with recommendations for wound vac. 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 Neurosurgery evaluated patient states no surgical intervention Continue PT/OT/ST Case management consulted for inpatient rehabilitation, who indicated patient is homeless, no discharge disposition to inpatient rehabilitation Palliative care was consulted for recommendations. They recommended, see evaluation which has been done. Family wants aggressive measures and placement to be performed. Psychiatry indicates that the patient does not have decision-making capacity to participate in her treatment or discharge plan. Patient to get in stretcher chair 3 times daily, will re-iterate to nursing staff Dysphagia suspect secondary to intracranial bleed Post PEG placement 05/09/17. 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 GI Prophylaxis: Prevacid via PEG tube DVT Prophylaxis: Sequential compression devices, chemical prophylaxis contraindicated secondary to intracranial hemorrhage Palliative care: Reconsulted palliative care this time in light of the patient' s worsening condition, family still wishing full aggressive management. Records were reviewed. No change in current treatment plan. Awaiting case management for discharge planning Discharge Planning Patient is stable to be discharged to rehabilitation facility. Case management assisting. Veena Calvillo Dec 01, 2017 10:08
--- NOTE | 2017-12-01 10:52 | PD.WCN.NOT ---
Neg Pressure Wound Therapy Wound Location Wound Location: Coccyx Wound Description Length: 5.2cm Width: 3.4cm Depth: 1.4cm Underminin-6 O'clock ~1.4cm at the deepest around 5 o'clock Wound bed appearance: 70% beefy red tissue ~10% tendon, ~10% bone and ~10% fascia Periwound appearance: Unremarkable Settings Suction: 125 mmHg, Continuous Intensity: Low Other Information: Bridged, Windowpaned, Mushroomed Foam type: Black Number of pieces: 1 Additonal Information Patient was seen by medical writer in [facility] 3rd floor for follow up sacrococcygeal wound. Patient was repositioned to L side for dressing removal.Evelyn wound intact.Multiple layers of draping and Tegaderm removed from wound.Patients length has increased in size due to undermining and shear .Patient was then turned to R side for wound assessment and dressing change.Cleansed wound with wound cleanser and pat dry.Wound description and measurements noted above.Skin prep applied to periwound stoma paste applied to distal wound to protect skin/ seal. One piece transparent drape applied to periwound bridged to R anterior thigh.1 piece black sponge applied to wound base making contact with all undermining areas bridged to R anterior thigh. Sensi trac pad applied with mushroom cap of granufoam to bridged granufoam.Calazime applied to rectal area around intact Dignashield .Vac set at 125mmhg continuous low suction no leaks noted.Patient tolerated wound care/Vac placement well. Wound VAC to be changed every MON,WEDS,FRI. Yon Caruso [facility] Dec 01, 2017 10:52
[2017-12-01] MEDS: HYDROCHLOROTHIAZIDE 25 MG TAB PO SCH (13:19)
[2017-12-01] MEDS: METOPROLOL TARTRATE 25 MG TAB PEG SCH ×2 (13:19→20:22)
[2017-12-01] MEDS: LANSOPRAZOLE SOLUTAB 30 MG TAB G-TUBE SCH (13:19)
[2017-12-01 13:32] VITALS: BP 110/80
[2017-12-01 16:00] VITALS: BP 126/76; PULSE 81; RESP 14; TEMP 98.5; O2SAT 99
[2017-12-01 21:26] VITALS: BP 131/82; PULSE 95; RESP 16; TEMP 99.7; O2SAT 96
[2017-12-02] MEDS: hydrALAZINE HCL 50 MG TAB PEG SCH ×4 (00:13→17:15)
[2017-12-02] MEDS: FREE WATER G-TUBE SCH ×4 (00:13→17:15)
[2017-12-02] MEDS: NIFEdipine 20 MG CAP PEG SCH ×4 (00:13→17:15)
[2017-12-02 07:50] VITALS: BP 123/83; PULSE 98; RESP 20; TEMP 97.2; O2SAT 99
[2017-12-02] MEDS: METOPROLOL TARTRATE 25 MG TAB PEG SCH ×2 (08:17→22:29)
[2017-12-02] MEDS: HYDROCHLOROTHIAZIDE 25 MG TAB PO SCH (08:17)
[2017-12-02] MEDS: LANSOPRAZOLE SOLUTAB 30 MG TAB G-TUBE SCH (08:17)
[2017-12-02] MEDS: LACTIC ACID (AMMONIUM LACTATE) 12% LOTION 225 GM BTL TOPICAL SCH ×2 (08:19→22:29)
--- NOTE | 2017-12-02 09:25 | HHI.PR ---
Subjective Remarks Follow-up hemorrhagic CVA and sacral wound. Patient seen and examined, lying in bed comfortably awake and alert, smiling. No reports of any acute events overnight. No change in clinical condition. Objective Vitals Vital Signs Date Time Temp Pulse Resp B/P (MAP) Pulse Ox O2 Delivery O2 Flow Rate FiO2 12/02/17 07:50 97.2 98 20 123/83 (96) 99 Automatic Cuff 12/01/17 21:26 99.7 95 16 131/82 (98) 96 12/01/17 16:00 98.5 81 14 126/76 (93) 99 12/01/17 13:32 110/80 (90) I/O 12/01/17 12/01/17 12/01/17 12/02/17 12/02/17 12/02/17 07:00 15:00 23:00 07:00 15:00 23:00 Intake Total 980 ml 690 ml Output Total 250 ml 900 ml Balance -250 ml 980 ml -210 ml Tube Feeding 480 ml 240 ml Tube Irrigant 500 ml Other 450 ml Output Urine Total 250 ml 900 ml Imaging Last Impressions Upper Extremity Ultrasound 11/06/17 0000 Signed Impressions: Service Date/Time: Monday, November 06, 2017 14:17 - CONCLUSION: Normal examination. K. Byron Perez MD Pelvis CT 10/13/17 0000 Signed Impressions: Service Date/Time: Friday, October 13, 2017 12:02 - CONCLUSION: 1. Decubitus ulcer with small abscess in the right posterior perineal region measuring 3.1 x 4.6 cm. There is also a small abscess posterior and to the left of the rectum measuring 3.2 x 2.3 cm. Jann Weber MD Chest X-Ray 10/12/17 0000 Signed Impressions: Service Date/Time: October 12:18 - CONCLUSION: No acute disease. Jann eWber MD Head CT 04/25/17 0000 Signed Impressions: Service Date/Time: Tuesday, April 25, 2017 18:02 - CONCLUSION: 1. Evolving left thalamic hematoma. No new hemorrhage. Adi Quarles MD Abdomen X-Ray 04/12/17 1538 Signed Impressions: Service Date/Time: Wednesday, April 12, 2017 17:29 - CONCLUSION: Nonobstructive bowel gas pattern. Suresh Zapata MD Neck CTA 04/10/17 0000 Signed Impressions: Service Date/Time: Monday, April 10, 2017 22:28 - CONCLUSION: The internal carotid arteries are normal bilaterally. No significant atherosclerotic disease is noted. Eliud Du MD Head CTA 04/10/17 0000 Signed Impressions: Service Date/Time: Monday, April 10, 2017 22:50 - CONCLUSION: Mild dilatation of the basilar tip without discrete aneurysm. Some narrowing of the left middle cerebral branch after the bifurcation. Prominent left thalamic hemorrhage. Eliud Du MD Objective Remarks GENERAL: Well-developed, well-nourished, in no acute distress. Awake, responds minimally with head nods, tracking with eyes. SKIN: Stage IV sacral wound noted, wound vac in place. Right upper extremity swelling improved. Now left arm with swelling. HEENT: Head is normocephalic without any lesions or masses noted. Facial features are symmetric. Eyes: Conjunctivae were clear. Continue to monitor. CARDIAC: Regular rhythm, regular rate. S1/S2 are heard. 2/6 ejection, no gallops or rubs. LUNGS: Clear to auscultation bilaterally. No wheeze, rhonchi or rales. No use of accessory muscles on inspiration or expiration. ABDOMEN: Soft, nontender. Nondistended. Bowel sounds heard in all 4 quadrants. No organomegaly or masses. Negative guarding. PEG tube noted without any signs of infection, skin c/d/i, dressing intact. No erythema. EXTREMITIES: No edema, pulses are equal bilaterally. No cyanosis or clubbing NEUROLOGY: Patient is moving left upper extremity and able to move left foot. Patient unable to move right upper and lower extremity. Procedures Peg Tube placed 05/08/17 (Dr. De Los Santos) Urinary Catheter: Yes Assessment to: Continue Cruz insert reason: Stage III/IV Press Ulcer Date of Insertion: Nov 08, 2017 A/P Assessment and Plan Sacral decubitus with perineal abscess Wound care nurse evaluated patient and made recommendations for wound care and surgical debridement 10/10/17, Gen. surgery was consulted for sacral decubitus. Was notified on 10/11/17 that general surgery does not do sacral decubitus debridement or surgeries 10/11/17. Case was discussed with plastic surgery who are actually not big machine consultant at this time. Dr. Lai was able to arrange for to evaluate the patient 10/12/17. Plastic surgery, , evaluated the patient who recommended Santyl at this time and possible debridement in the near future 10/13/17. Patient remains septic, CT of the pelvis was performed which did indicate multiple abscess in the right posterior perineal area and posterior and left of the rectum, 10/13/17. Discussed this with plastic surgery Dr. Lai, who indicated that these abscesses are 2 deep and to close to rectal mucosal for plastic surgery. He recommended consulting colorectal surgery 10/13/17. Dr. Franklin was big machine consultant for colorectal surgery, consult was placed to him for evaluation. Case was discussed with him on multiple occasions. He indicates that since this is connected to a sacral decubitus and since there is no communication with the rectum, this case is not appropriate for colorectal surgery, awaiting consultation report 10/15/17. Discussed with Dr. Abdullahi. He was planning a doing debridement of today, however was unable to obtain consent from family 10/17/17. Spoke with son, consents signed for I&D of sacral wound. Debridement performed, patient tolerated well. Dressing change orders in place. 10/19/17 Santyl to wound bed. EARL Pollack. Continue BID dressing changes. 11/02/17 Ortiz saw patient with recommendations for wound vac. 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 Neurosurgery evaluated patient states no surgical intervention Continue PT/OT/ST Case management consulted for inpatient rehabilitation, who indicated patient is homeless, no discharge disposition to inpatient rehabilitation Palliative care was consulted for recommendations. They recommended, see evaluation which has been done. Family wants aggressive measures and placement to be performed. Psychiatry indicates that the patient does not have decision-making capacity to participate in her treatment or discharge plan. Patient to get in stretcher chair 3 times daily, will re-iterate to nursing staff Dysphagia suspect secondary to intracranial bleed Post PEG placement 05/09/17. 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 GI Prophylaxis: Prevacid via PEG tube DVT Prophylaxis: Sequential compression devices, chemical prophylaxis contraindicated secondary to intracranial hemorrhage Palliative care: Reconsulted palliative care this time in light of the patient' s worsening condition, family still wishing full aggressive management. Records were reviewed. No change in current treatment plan. Awaiting case management for discharge planning Discharge Planning Patient is stable to be discharged to rehabilitation facility. Case management assisting. Veena Calvillo Dec 02, 2017 09:25
[2017-12-02 13:07] VITALS: BP 138/89
[2017-12-02 15:30] VITALS: BP 106/73; PULSE 102; RESP 20; TEMP 98.8; O2SAT 100
[2017-12-02 17:13] VITALS: BP 121/84
[2017-12-02 20:00] VITALS: BP 109/73; PULSE 106; RESP 20; TEMP 100.2; O2SAT 98
[2017-12-03] VITALS: BP 102/78; PULSE 89; RESP 20; TEMP 98.8; O2SAT 98
[2017-12-03] MEDS: hydrALAZINE HCL 50 MG TAB PEG SCH ×4 (00:34→17:21)
[2017-12-03] MEDS: NIFEdipine 20 MG CAP PEG SCH ×4 (00:35→17:21)
[2017-12-03] MEDS: FREE WATER G-TUBE SCH ×4 (05:19→17:21)
[2017-12-03 07:50] VITALS: BP 112/75; PULSE 93; RESP 20; TEMP 98.3; O2SAT 100
[2017-12-03] MEDS: HYDROCHLOROTHIAZIDE 25 MG TAB PO SCH (09:12)
[2017-12-03] MEDS: LANSOPRAZOLE SOLUTAB 30 MG TAB G-TUBE SCH (09:12)
[2017-12-03] MEDS: METOPROLOL TARTRATE 25 MG TAB PEG SCH ×2 (09:12→20:43)
[2017-12-03] MEDS: LACTIC ACID (AMMONIUM LACTATE) 12% LOTION 225 GM BTL TOPICAL SCH ×2 (09:29→20:44)
--- NOTE | 2017-12-03 10:25 | HHI.PR ---
Subjective Remarks Follow-up CVA hemorrhage and sacral wound. Patient seen and examined, lying in bed comfortably. Flat affect. Does track with eyes. Denies any acute events overnight. Family visited overnight, requesting OT evaluation. No change in clinical condition. Objective Vitals Vital Signs Date Time Temp Pulse Resp B/P (MAP) Pulse Ox O2 Delivery O2 Flow Rate FiO2 12/03/17 07:50 98.3 93 20 112/75 (87) 100 12/03/17 00:00 98.8 89 20 102/78 (86) 98 12/02/17 20:00 100.2 106 20 109/73 (85) 98 12/02/17 17:13 121/84 (96) 12/02/17 15:30 98.8 102 20 106/73 (84) 100 12/02/17 13:07 138/89 (105) I/O 12/02/17 12/02/17 12/02/17 12/03/17 12/03/17 12/03/17 07:00 15:00 23:00 07:00 15:00 23:00 Intake Total 690 ml 1120 ml Output Total 900 ml 800 ml 400 ml Balance -210 ml 320 ml -400 ml Tube Feeding 240 ml 720 ml Other 450 ml 400 ml Output Urine Total 900 ml 450 ml 400 ml Stool Total 350 ml 0 ml Drainage Total 0 ml Imaging Last Impressions Upper Extremity Ultrasound 11/06/17 0000 Signed Impressions: Service Date/Time: Monday, November 06, 2017 14:17 - CONCLUSION: Normal examination. KLanre Perez MD Pelvis CT 10/13/17 0000 Signed Impressions: Service Date/Time: Friday, October 13, 2017 12:02 - CONCLUSION: 1. Decubitus ulcer with small abscess in the right posterior perineal region measuring 3.1 x 4.6 cm. There is also a small abscess posterior and to the left of the rectum measuring 3.2 x 2.3 cm. Jann Weber MD Chest X-Ray 10/12/17 0000 Signed Impressions: Service Date/Time: October 12:18 - CONCLUSION: No acute disease. Jann Weber MD Head CT 04/25/17 0000 Signed Impressions: Service Date/Time: Tuesday, April 25, 2017 18:02 - CONCLUSION: 1. Evolving left thalamic hematoma. No new hemorrhage. Adi Quarles MD Abdomen X-Ray 04/12/17 1538 Signed Impressions: Service Date/Time: Wednesday, April 12, 2017 17:29 - CONCLUSION: Nonobstructive bowel gas pattern. Suresh Zapata MD Neck CTA 04/10/17 0000 Signed Impressions: Service Date/Time: Monday, April 10, 2017 22:28 - CONCLUSION: The internal carotid arteries are normal bilaterally. No significant atherosclerotic disease is noted. Eliud Du MD Head CTA 04/10/17 0000 Signed Impressions: Service Date/Time: Monday, April 10, 2017 22:50 - CONCLUSION: Mild dilatation of the basilar tip without discrete aneurysm. Some narrowing of the left middle cerebral branch after the bifurcation. Prominent left thalamic hemorrhage. Eliud Du MD Objective Remarks GENERAL: Well-developed, well-nourished, in no acute distress. Awake, responds minimally with head nods, tracking with eyes. SKIN: Stage IV sacral wound noted, wound vac in place. Right upper extremity swelling improved. Now left arm with swelling. HEENT: Head is normocephalic without any lesions or masses noted. Facial features are symmetric. Eyes: Conjunctivae were clear. Continue to monitor. CARDIAC: Regular rhythm, regular rate. S1/S2 are heard. 2/6 ejection, no gallops or rubs. LUNGS: Clear to auscultation bilaterally. No wheeze, rhonchi or rales. No use of accessory muscles on inspiration or expiration. ABDOMEN: Soft, nontender. Nondistended. Bowel sounds heard in all 4 quadrants. No organomegaly or masses. Negative guarding. PEG tube noted without any signs of infection, skin c/d/i, dressing intact. No erythema. EXTREMITIES: No edema, pulses are equal bilaterally. No cyanosis or clubbing NEUROLOGY: Patient is moving left upper extremity and able to move left foot. Patient unable to move right upper and lower extremity. Procedures Peg Tube placed 05/08/17 (Dr. De Los Santos) Urinary Catheter: Yes Assessment to: Continue Cruz insert reason: Stage III/IV Press Ulcer Date of Insertion: Nov 08, 2017 A/P Assessment and Plan Sacral decubitus with perineal abscess Wound care nurse evaluated patient and made recommendations for wound care and surgical debridement 10/10/17, Gen. surgery was consulted for sacral decubitus. Was notified on 10/11/17 that general surgery does not do sacral decubitus debridement or surgeries 10/11/17. Case was discussed with plastic surgery who are actually not construction recruiter at this time. Dr. Lai was able to arrange for to evaluate the patient 10/12/17. Plastic surgery, , evaluated the patient who recommended Santyl at this time and possible debridement in the near future 10/13/17. Patient remains septic, CT of the pelvis was performed which did indicate multiple abscess in the right posterior perineal area and posterior and left of the rectum, 10/13/17. Discussed this with plastic surgery Dr. Lai, who indicated that these abscesses are 2 deep and to close to rectal mucosal for plastic surgery. He recommended consulting colorectal surgery 10/13/17. Dr. Franklin was construction recruiter for colorectal surgery, consult was placed to him for evaluation. Case was discussed with him on multiple occasions. He indicates that since this is connected to a sacral decubitus and since there is no communication with the rectum, this case is not appropriate for colorectal surgery, awaiting consultation report 10/15/17. Discussed with Dr. Abdullahi. He was planning a doing debridement of today, however was unable to obtain consent from family 10/17/17. Spoke with son, consents signed for I&D of sacral wound. Debridement performed, patient tolerated well. Dressing change orders in place. 10/19/17 Santyl to wound bed. EARL Pollack. Continue BID dressing changes. 11/02/17 Ortiz saw patient with recommendations for wound vac. 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 Neurosurgery evaluated patient states no surgical intervention Continue PT/OT/ST Case management consulted for inpatient rehabilitation, who indicated patient is homeless, no discharge disposition to inpatient rehabilitation Palliative care was consulted for recommendations. They recommended, see evaluation which has been done. Family wants aggressive measures and placement to be performed. Psychiatry indicates that the patient does not have decision-making capacity to participate in her treatment or discharge plan. Patient to get in stretcher chair 3 times daily, spoke to nursing staff about getting out of bed. Dysphagia suspect secondary to intracranial bleed Post PEG placement 05/09/17. 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 GI Prophylaxis: Prevacid via PEG tube DVT Prophylaxis: Sequential compression devices, chemical prophylaxis contraindicated secondary to intracranial hemorrhage Palliative care: Reconsulted palliative care this time in light of the patient' s worsening condition, family still wishing full aggressive management. Records were reviewed. No change in current treatment plan. Awaiting case management for discharge planning Discharge Planning Patient is stable to be discharged to rehabilitation facility. Case management assisting. Veena Calvillo Dec 03, 2017 10:25
[2017-12-03 11:50] VITALS: BP 121/84; PULSE 79; RESP 20; TEMP 97.8; O2SAT 98
[2017-12-03 17:20] VITALS: BP 112/85
[2017-12-03 21:17] VITALS: BP 107/68; PULSE 101; RESP 16; TEMP 98.9; O2SAT 98
[2017-12-04] MEDS: hydrALAZINE HCL 50 MG TAB PEG SCH ×5 (00:34→23:02)
[2017-12-04] MEDS: NIFEdipine 20 MG CAP PEG SCH ×5 (00:34→23:02)
[2017-12-04 04:40] VITALS: BP 107/71; PULSE 93; RESP 16; TEMP 99.9; O2SAT 97
[2017-12-04] MEDS: FREE WATER G-TUBE SCH ×5 (05:38→23:02)
[2017-12-04 08:00] VITALS: BP 117/81; PULSE 83; RESP 16; TEMP 97.3; O2SAT 98
--- NOTE | 2017-12-04 10:08 | HHI.PR ---
Subjective Remarks Follow-up CVA hemorrhage and sacral wound. Patient seen and examined today, lying in bed sleeping. Awakens to voice. Denies any pain. Appears to be lying in bed comfortably. No change in clinical condition. Supposedly patient is transferred to the main hospital today. Vital signs are stable. Wound VAC continued. Cruz continued. Objective Vitals Vital Signs Date Time Temp Pulse Resp B/P (MAP) Pulse Ox O2 Delivery O2 Flow Rate FiO2 12/04/17 08:00 97.3 83 16 117/81 (93) 98 12/04/17 04:40 99.9 93 16 107/71 (83) 97 12/03/17 21:17 98.9 101 16 107/68 (81) 98 12/03/17 17:20 112/85 (94) 12/03/17 11:50 97.8 79 20 121/84 (96) 98 I/O 12/03/17 12/03/17 12/03/17 12/04/17 12/04/17 12/04/17 07:00 15:00 23:00 07:00 15:00 23:00 Intake Total 1120 ml Output Total 400 ml 1300 ml 800 ml Balance -400 ml -180 ml -800 ml Tube Feeding 720 ml Other 400 ml Output Urine Total 400 ml 950 ml 700 ml Stool Total 0 ml 350 ml 100 ml Drainage Total 0 ml Imaging Last Impressions Upper Extremity Ultrasound 11/06/17 0000 Signed Impressions: Service Date/Time: Monday, November 06, 2017 14:17 - CONCLUSION: Normal examination. K. Byron Perez MD Pelvis CT 10/13/17 0000 Signed Impressions: Service Date/Time: Friday, October 13, 2017 12:02 - CONCLUSION: 1. Decubitus ulcer with small abscess in the right posterior perineal region measuring 3.1 x 4.6 cm. There is also a small abscess posterior and to the left of the rectum measuring 3.2 x 2.3 cm. Jann Weber MD Chest X-Ray 10/12/17 0000 Signed Impressions: Service Date/Time: October 12:18 - CONCLUSION: No acute disease. Jann Weber MD Head CT 04/25/17 0000 Signed Impressions: Service Date/Time: Tuesday, April 25, 2017 18:02 - CONCLUSION: 1. Evolving left thalamic hematoma. No new hemorrhage. Adi Quarles MD Abdomen X-Ray 04/12/17 1538 Signed Impressions: Service Date/Time: Wednesday, April 12, 2017 17:29 - CONCLUSION: Nonobstructive bowel gas pattern. Suresh Zapata MD Neck CTA 04/10/17 0000 Signed Impressions: Service Date/Time: Monday, April 10, 2017 22:28 - CONCLUSION: The internal carotid arteries are normal bilaterally. No significant atherosclerotic disease is noted. Eliud Du MD Head CTA 04/10/17 0000 Signed Impressions: Service Date/Time: Monday, April 10, 2017 22:50 - CONCLUSION: Mild dilatation of the basilar tip without discrete aneurysm. Some narrowing of the left middle cerebral branch after the bifurcation. Prominent left thalamic hemorrhage. Eliud Du MD Objective Remarks GENERAL: Well-developed, well-nourished, in no acute distress. Awake, responds minimally with head nods, tracking with eyes. SKIN: Stage IV sacral wound noted, wound vac in place. Right upper extremity swelling improved. Now left arm with swelling. HEENT: Head is normocephalic without any lesions or masses noted. Facial features are symmetric. Eyes: Conjunctivae were clear. Continue to monitor. CARDIAC: Regular rhythm, regular rate. S1/S2 are heard. 2/6 ejection, no gallops or rubs. LUNGS: Clear to auscultation bilaterally. No wheeze, rhonchi or rales. No use of accessory muscles on inspiration or expiration. ABDOMEN: Soft, nontender. Nondistended. Bowel sounds heard in all 4 quadrants. No organomegaly or masses. Negative guarding. PEG tube noted without any signs of infection, skin c/d/i, dressing intact. No erythema. EXTREMITIES: No edema, pulses are equal bilaterally. No cyanosis or clubbing NEUROLOGY: Patient is moving left upper extremity and able to move left foot. Patient unable to move right upper and lower extremity. Procedures Peg Tube placed 05/08/17 (Dr. De Los Santos) Urinary Catheter: Yes Assessment to: Continue Cruz insert reason: Stage III/IV Press Ulcer Date of Insertion: Nov 08, 2017 A/P Assessment and Plan Sacral decubitus with perineal abscess, I&D of sacral wound 10/17/17. Debridement performed, patient tolerated well. Continued wound VAC. 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 Neurosurgery evaluated patient states no surgical intervention Continue PT/OT/ST Case management consulted for inpatient rehabilitation, who indicated patient is homeless, no discharge disposition to inpatient rehabilitation Palliative care was consulted for recommendations. They recommended, see evaluation which has been done. Family wants aggressive measures and placement to be performed. Psychiatry indicates that the patient does not have decision-making capacity to participate in her treatment or discharge plan. Patient to get in stretcher chair 3 times daily, spoke to nursing staff about getting out of bed. Dysphagia suspect secondary to intracranial bleed Post PEG placement 05/09/17. 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 GI Prophylaxis: Prevacid via PEG tube DVT Prophylaxis: Sequential compression devices, chemical prophylaxis contraindicated secondary to intracranial hemorrhage Palliative care: Reconsulted palliative care this time in light of the patient' s worsening condition, family still wishing full aggressive management. Records were reviewed. No change in current treatment plan. Awaiting case management for discharge planning Discharge Planning Patient is stable to be discharged to rehabilitation facility. Case management assisting. Veena Calvillo Dec 04, 2017 10:08
[2017-12-04] MEDS: LANSOPRAZOLE SOLUTAB 30 MG TAB G-TUBE SCH (11:22)
[2017-12-04] MEDS: METOPROLOL TARTRATE 25 MG TAB PEG SCH ×2 (11:22→20:33)
[2017-12-04] MEDS: LACTIC ACID (AMMONIUM LACTATE) 12% LOTION 225 GM BTL TOPICAL SCH ×2 (11:22→20:34)
[2017-12-04] MEDS: HYDROCHLOROTHIAZIDE 25 MG TAB PO SCH (11:22)
[2017-12-04 16:00] VITALS: BP 139/96; PULSE 101; RESP 18; TEMP 99.5; O2SAT 96
[2017-12-04 20:00] VITALS: BP 117/78; PULSE 117; RESP 20; TEMP 99.6; O2SAT 97
[2017-12-05] MEDS: FREE WATER G-TUBE SCH ×4 (05:13→23:42)
[2017-12-05] MEDS: NIFEdipine 20 MG CAP PEG SCH ×4 (05:13→23:41)
[2017-12-05] MEDS: hydrALAZINE HCL 50 MG TAB PEG SCH ×4 (05:13→23:41)
[2017-12-05 07:15] VITALS: BP 116/82; PULSE 98; RESP 16; TEMP 98.7; O2SAT 98
[2017-12-05] MEDS: LANSOPRAZOLE SOLUTAB 30 MG TAB G-TUBE SCH (08:12)
[2017-12-05] MEDS: HYDROCHLOROTHIAZIDE 25 MG TAB PO SCH (08:13)
[2017-12-05] MEDS: METOPROLOL TARTRATE 25 MG TAB PEG SCH ×2 (08:13→21:00)
[2017-12-05] MEDS: LACTIC ACID (AMMONIUM LACTATE) 12% LOTION 225 GM BTL TOPICAL SCH ×2 (08:14→21:00)
[2017-12-05 08:20] VITALS: O2SAT 98
[2017-12-05] MEDS: cloNIDine HCL 0.3 MG/24 HR PATCH T-DERMAL SCH (14:12)
[2017-12-05] MEDS: REMOVE OLD CATAPRES (CLONIDINE) PATCH T-DERMAL SCH (14:12)
--- NOTE | 2017-12-05 15:01 | HHI.PR ---
Subjective Remarks Discussed with RN, no overnight events, follows some commands. Tries to answer questions. Objective Vitals Vital Signs Date Time Temp Pulse Resp B/P (MAP) Pulse Ox O2 Delivery O2 Flow Rate FiO2 12/05/17 08:20 98 21 12/05/17 07:15 98.7 98 16 116/82 (93) 98 12/04/17 20:00 99.6 117 20 117/78 (91) 97 12/04/17 16:00 99.5 101 18 139/96 (110) 96 I/O 12/04/17 12/04/17 12/04/17 12/05/17 12/05/17 12/05/17 07:00 15:00 23:00 07:00 15:00 23:00 Intake Total 390 ml 590 ml Output Total 800 ml 250 ml 500 ml Balance -800 ml 140 ml 90 ml Tube Feeding 240 ml 240 ml Tube Irrigant 200 ml Other 150 ml 150 ml Output Urine Total 700 ml 250 ml 500 ml Stool Total 100 ml Objective Remarks GENERAL: Not in distress. SKIN: Wound VAC replaced. HEENT: Head is normocephalic without any lesions or masses noted. CARDIAC: Regular rhythm, regular rate. S1/S2 are heard. 2/6 ejection, no gallops or rubs. LUNGS: Clear to auscultation bilaterally. No wheeze, rhonchi or rales. No use of accessory muscles on inspiration or expiration. Poor effort. ABDOMEN: Soft, nontender. Nondistended. EXTREMITIES: No edema, pulses are equal bilaterally. No cyanosis or clubbing NEUROLOGY: Patient is moving left upper extremity and able to move left foot. Follows some commands, Procedures Peg Tube placed 05/08/17 (Dr. De Los Santos) Date of Insertion: Nov 08, 2017 A/P Assessment and Plan Sacral decubitus with perineal abscess, I&D of sacral wound 10/17/17. Debridement performed, patient tolerated well. Continued wound VAC. 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 Neurosurgery evaluated patient states no surgical intervention Continue PT/OT/ST Case management consulted for inpatient rehabilitation, who indicated patient is homeless, no discharge disposition to inpatient rehabilitation Palliative care was consulted for recommendations. They recommended, see evaluation which has been done. Family wants aggressive measures and placement to be performed. Psychiatry indicates that the patient does not have decision-making capacity to participate in her treatment or discharge plan. Patient to get in stretcher chair 3 times daily, spoke to nursing staff about getting out of bed. Dysphagia suspect secondary to intracranial bleed Post PEG placement 05/09/17. Speech therapy indicates patient is nothing by mouth, to continue to follow and advance diet per exam Dietary consulted and made recommendations for bolus feeding OT Evaluation Hypertension emergency, continue monitor blood pressure and adjust as needed Nifedipine 40 mg every 6 hours Lisinopril 10 mg twice daily Apresoline 50 mg every 6 hours Catapres TTS 3 patch Metoprolol 100 mg twice daily HCTZ 25 mg daily Apresoline, clonidine, Vasotec as needed Hyperglycemia Hemoglobin A1c 6.2 Glucerna 1.5 bolus tube feeding Xeroderma on bilateral feet: Lac-Hydrin 12% Lotion continued. GI Prophylaxis: Prevacid via PEG tube DVT Prophylaxis: Sequential compression devices, chemical prophylaxis contraindicated secondary to intracranial hemorrhage Palliative care: Reconsulted palliative care this time in light of the patient' s worsening condition, family still wishing full aggressive management. Records reviewed, discussed with RN, no change in management. Nolvia Salomon MD Dec 05, 2017 15:01
[2017-12-05 20:00] VITALS: BP 129/87; PULSE 113; RESP 20; TEMP 98.8; O2SAT 95
[2017-12-06] MEDS: hydrALAZINE HCL 50 MG TAB PEG SCH ×3 (05:43→17:30)
[2017-12-06] MEDS: NIFEdipine 20 MG CAP PEG SCH ×3 (05:43→17:30)
[2017-12-06] MEDS: FREE WATER G-TUBE SCH ×3 (05:43→17:30)
[2017-12-06 08:00] VITALS: BP 109/79; PULSE 105; RESP 16; TEMP 98.8; O2SAT 98
[2017-12-06] MEDS: LACTIC ACID (AMMONIUM LACTATE) 12% LOTION 225 GM BTL TOPICAL SCH ×2 (09:00→20:55)
[2017-12-06] MEDS: METOPROLOL TARTRATE 25 MG TAB PEG SCH ×2 (10:19→20:55)
[2017-12-06] MEDS: LANSOPRAZOLE SOLUTAB 30 MG TAB G-TUBE SCH (10:19)
[2017-12-06] MEDS: HYDROCHLOROTHIAZIDE 25 MG TAB PO SCH (10:20)
--- NOTE | 2017-12-06 17:14 | HHI.PR ---
Subjective Remarks Patient unable to provide history. No acute changes compared to prior day. No fevers overnight. Objective Vital Signs Date Time Temp Pulse Resp B/P (MAP) Pulse Ox O2 Delivery O2 Flow Rate FiO2 12/06/17 08:00 98.8 105 16 109/79 (89) 98 12/05/17 20:00 98.8 113 20 129/87 (101) 95 I/O 12/05/17 12/05/17 12/05/17 12/06/17 12/06/17 12/06/17 07:00 15:00 23:00 07:00 15:00 23:00 Intake Total 590 ml 690 ml Output Total 500 ml 750 ml 400 ml Balance 90 ml -750 ml 290 ml Tube Feeding 240 ml 240 ml Tube Irrigant 200 ml 200 ml Other 150 ml 250 ml Output Urine Total 500 ml 400 ml 400 ml Stool Total 50 ml Drainage Total 300 ml # Bowel Movements 1 Procedures No procedures performed Objective Remarks GENERAL: NAD, A&Ox0 HEAD: Normocephalic. NECK: Supple, trachea midline. No lymphadenopathy. EYES: No scleral icterus. No injection or drainage. CARDIOVASCULAR: Regular rate and rhythm without murmurs, gallops, or rubs. RESPIRATORY: Breath sounds equal bilaterally. No accessory muscle use. GASTROINTESTINAL: Abdomen soft, non-tender, nondistended. MUSCULOSKELETAL: No cyanosis, or edema. SKIN: Warm and dry. NEURO: No focal neurological deficitis. A/P Problem List: (1) Major neurocognitive disorder ICD Code: F03.90 - Unspecified dementia without behavioral disturbance Assessment and Plan 62-year-old female admitted secondary to intracranial hemorrhage on 04/10/17 Status post intracranial hemorrhage Status post hemorrhagic CVA Continue PT, OT, and ST Patient was homeless prior to admit Poor access for inpatient rehabilitation Family desires aggressive measures for therapy and placement Independent funding unavailable for placement Long-term prognosis is poor No significant capacity for regaining full functionality Dysphagia Related to intracranial bleed history Status post PEG placement on 05/09/17 Continue tube feeding Hypertension emergency Follow blood pressures Continue the following blood pressures: Nifedipine 40 mg every 6 hours Lisinopril 10 mg twice daily Apresoline 50 mg every 6 hours Catapres TTS 3 patch Metoprolol 100 mg twice daily HCTZ 25 mg daily Apresoline, clonidine, Vasotec as needed Hyperglycemia Glucerna for tube feeds Follow blood sugars intermittently Xeroderma on bilateral feet Lac-Hydrin 12% Lotion continued. DVT Prophylaxis: SCDs given history of intracranial hemorrhage Discharge planning Difficult placement Palliative care following Timmy Cano MD Dec 06, 2017 17:14
[2017-12-06 20:00] VITALS: BP 116/88; PULSE 101; RESP 20; TEMP 99.3; O2SAT 97
[2017-12-07] MEDS: NIFEdipine 20 MG CAP PEG SCH ×5 (00:12→23:23)
[2017-12-07] MEDS: hydrALAZINE HCL 50 MG TAB PEG SCH ×5 (00:12→23:23)
[2017-12-07] MEDS: FREE WATER G-TUBE SCH ×5 (06:00→23:23)
[2017-12-07 07:06] LABS: AUTOMATED NEUTROPHIL # 2.2 TH/MM3 (1.8-7.7); BASOPHIL % 0.6 % (0.0-2.0); EOSINOPHIL # 0.3 TH/MM3 (0-0.4); EOSINOPHIL % 5.8 % (0.0-4.0); HEMATOCRIT 33.7 % (35.0-46.0); HEMOGLOBIN 11.5 GM/DL (11.6-15.3); LYMPH % 32.1 % (9.0-44.0); LYMPHOCYTE # 1.5 TH/MM3 (1.0-4.8); MEAN CELL VOLUME 83.6 FL (80.0-100.0); MEAN CORPUSCULAR HEMOGLOBIN 28.4 PG (27.0-34.0); MEAN PLATELET VOLUME 8.5 FL (7.0-11.0); MONO % 14.4 % (0.0-8.0); MONOCYTE # 0.7 TH/MM3 (0-0.9); NEUT % 47.1 % (16.0-70.0); PLATELET COUNT 268 TH/MM3 (150-450); RED BLOOD COUNT 4.03 MIL/MM3 (4.00-5.30); WHITE BLOOD COUNT 4.6 TH/MM3 (4.0-11.0)
[2017-12-07 07:53] LABS: ALBUMIN 3.2 GM/DL (3.4-5.0); ALT (GPT) 16 U/L (10-53); AST (GOT) 19 U/L (15-37); BICARBONATE 31.6 MEQ/L (21.0-32.0); BLOOD UREA NITROGEN 18 MG/DL (7-18); CALCIUM 8.8 MG/DL (8.5-10.1); CHLORIDE 102 MEQ/L (98-107); CREATININE 0.41 MG/DL (0.50-1.00); GLOMERULAR FILTRATION RATE 190 ML/MIN (>89); GLUCOSE,RANDOM 92 MG/DL (74-106); SODIUM (NA) 140 MEQ/L (136-145)
[2017-12-07 07:56] LABS: ALKALINE PHOSPHATASE 75 U/L (45-117); TOTAL BILIRUBIN ADULT 0.3 MG/DL (0.2-1.0); TOTAL PROTEIN 7.1 GM/DL (6.4-8.2)
[2017-12-07] MEDS: METOPROLOL TARTRATE 25 MG TAB PEG SCH ×2 (08:29→21:30)
[2017-12-07] MEDS: LANSOPRAZOLE SOLUTAB 30 MG TAB G-TUBE SCH (08:29)
[2017-12-07] MEDS: LACTIC ACID (AMMONIUM LACTATE) 12% LOTION 225 GM BTL TOPICAL SCH ×2 (08:32→21:30)
[2017-12-07] MEDS: HYDROCHLOROTHIAZIDE 25 MG TAB PO SCH (08:32)
[2017-12-07 08:56] VITALS: BP 103/78; PULSE 98; RESP 14; TEMP 98.9; O2SAT 100
--- NOTE | 2017-12-07 12:05 | HHI.PR ---
Subjective Remarks Unchanged from previous day. Patient unable to provide history. No acute changes compared to prior day. No fevers overnight. Objective Vital Signs Date Time Temp Pulse Resp B/P (MAP) Pulse Ox O2 Delivery O2 Flow Rate FiO2 12/07/17 08:56 98.9 98 14 103/78 (86) 100 12/06/17 20:00 99.3 101 20 116/88 (97) 97 I/O 12/06/17 12/06/17 12/06/17 12/07/17 12/07/17 12/07/17 07:00 15:00 23:00 07:00 15:00 23:00 Intake Total 690 ml 810 ml 590 ml Output Total 400 ml 650 ml 650 ml Balance 290 ml 160 ml -60 ml Tube Feeding 240 ml 720 ml 240 ml Tube Irrigant 200 ml 200 ml Other 250 ml 90 ml 150 ml Output Urine Total 400 ml 350 ml 350 ml Stool Total 300 ml 300 ml # Bowel Movements 1 Result Diagram: 12/07/17 0645 12/07/17 0645 Procedures No procedures performed Objective Remarks GENERAL: NAD, A&Ox0 HEAD: Normocephalic. NECK: Supple, trachea midline. No lymphadenopathy. EYES: No scleral icterus. No injection or drainage. CARDIOVASCULAR: Regular rate and rhythm without murmurs, gallops, or rubs. RESPIRATORY: Breath sounds equal bilaterally. No accessory muscle use. GASTROINTESTINAL: Abdomen soft, non-tender, nondistended. MUSCULOSKELETAL: No cyanosis, or edema. SKIN: Warm and dry. NEURO: No focal neurological deficitis. A/P Problem List: (1) Major neurocognitive disorder ICD Code: F03.90 - Unspecified dementia without behavioral disturbance Assessment and Plan 62-year-old female admitted secondary to intracranial hemorrhage on 04/10/17. Continue to monitor patient clinically. She appears stable today. Chronic debilitation we'll place her risk for infections so we will follow her clinically and with intermittent blood work. Status post intracranial hemorrhage Status post hemorrhagic CVA Continue PT, OT, and ST Patient was homeless prior to admit Poor access for inpatient rehabilitation Family desires aggressive measures for therapy and placement Independent funding unavailable for placement Long-term prognosis is poor No significant capacity for regaining full functionality Dysphagia Related to intracranial bleed history Status post PEG placement on 05/09/17 Continue tube feeding Hypertension emergency Follow blood pressures Continue the following blood pressures: Nifedipine 40 mg every 6 hours Lisinopril 10 mg twice daily Apresoline 50 mg every 6 hours Catapres TTS 3 patch Metoprolol 100 mg twice daily HCTZ 25 mg daily Apresoline, clonidine, Vasotec as needed Hyperglycemia Glucerna for tube feeds Follow blood sugars intermittently Xeroderma on bilateral feet Lac-Hydrin 12% Lotion continued. DVT Prophylaxis: SCDs given history of intracranial hemorrhage Discharge planning Difficult placement Palliative care following Timmy Cano MD Dec 07, 2017 12:05
[2017-12-07 19:15] VITALS: BP 119/85; PULSE 96; RESP 16; TEMP 100; O2SAT 97
[2017-12-08] MEDS: NIFEdipine 20 MG CAP PEG SCH ×4 (05:17→23:38)
[2017-12-08] MEDS: hydrALAZINE HCL 50 MG TAB PEG SCH ×4 (05:17→23:38)
[2017-12-08] MEDS: FREE WATER G-TUBE SCH ×4 (05:17→23:38)
[2017-12-08 07:15] VITALS: BP 120/74; PULSE 78; RESP 16; TEMP 100; O2SAT 98
[2017-12-08] MEDS: LACTIC ACID (AMMONIUM LACTATE) 12% LOTION 225 GM BTL TOPICAL SCH ×2 (09:00→20:48)
[2017-12-08] MEDS: METOPROLOL TARTRATE 25 MG TAB PEG SCH ×2 (09:57→20:45)
[2017-12-08] MEDS: HYDROCHLOROTHIAZIDE 25 MG TAB PO SCH (09:57)
[2017-12-08] MEDS: LANSOPRAZOLE SOLUTAB 30 MG TAB G-TUBE SCH (09:57)
[2017-12-08 11:15] VITALS: BP 134/70; PULSE 84; RESP 16; TEMP 100; O2SAT 97
--- NOTE | 2017-12-08 11:58 | HHI.PR ---
Subjective Remarks Temperature 100.0 Fahrenheit overnight. Patient unable to provide history. No acute changes compared to prior day. Objective Vital Signs Date Time Temp Pulse Resp B/P (MAP) Pulse Ox O2 Delivery O2 Flow Rate FiO2 12/07/17 19:15 100.0 96 16 119/85 (96) 97 Manual Cuff/Auscultation I/O 12/07/17 12/07/17 12/07/17 12/08/17 12/08/17 12/08/17 07:00 15:00 23:00 07:00 15:00 23:00 Intake Total 590 ml 1410 ml 930 ml Output Total 650 ml 1050 ml 450 ml Balance -60 ml 360 ml 480 ml Tube Feeding 240 ml 960 ml 240 ml Tube Irrigant 200 ml 390 ml Other 150 ml 450 ml 300 ml Output Urine Total 350 ml 750 ml 450 ml Stool Total 300 ml 300 ml Result Diagram: 12/07/17 0645 12/07/17 0645 Procedures No procedures performed Objective Remarks GENERAL: NAD, A&Ox0 HEAD: Normocephalic. NECK: Supple, trachea midline. No lymphadenopathy. EYES: No scleral icterus. No injection or drainage. CARDIOVASCULAR: Regular rate and rhythm without murmurs, gallops, or rubs. RESPIRATORY: Breath sounds equal bilaterally. No accessory muscle use. GASTROINTESTINAL: Abdomen soft, non-tender, nondistended. MUSCULOSKELETAL: No cyanosis, or edema. SKIN: Warm and dry. NEURO: No focal neurological deficitis. A/P Problem List: (1) Major neurocognitive disorder ICD Code: F03.90 - Unspecified dementia without behavioral disturbance Assessment and Plan 62-year-old female admitted secondary to intracranial hemorrhage on 04/10/17. Continue to monitor patient clinically. She appears stable today. Chronic debilitation we'll place her risk for infections so we will follow her clinically and with intermittent blood work. Temperature 100.0 Fahrenheit overnight. Check urinalysis. Follow for results and possible culture. If evidence of urinary tract infection is present will begin antibiotics. No changes otherwise. Status post intracranial hemorrhage Status post hemorrhagic CVA Continue PT, OT, and ST Patient was homeless prior to admit Poor access for inpatient rehabilitation Family desires aggressive measures for therapy and placement Independent funding unavailable for placement Long-term prognosis is poor No significant capacity for regaining full functionality Dysphagia Related to intracranial bleed history Status post PEG placement on 05/09/17 Continue tube feeding Hypertension emergency Follow blood pressures Continue the following blood pressures: Nifedipine 40 mg every 6 hours Lisinopril 10 mg twice daily Apresoline 50 mg every 6 hours Catapres TTS 3 patch Metoprolol 100 mg twice daily HCTZ 25 mg daily Apresoline, clonidine, Vasotec as needed Hyperglycemia Glucerna for tube feeds Follow blood sugars intermittently Xeroderma on bilateral feet Lac-Hydrin 12% Lotion continued. DVT Prophylaxis: SCDs given history of intracranial hemorrhage Discharge planning Difficult placement Palliative care following Timmy Cano MD Dec 08, 2017 11:58
[2017-12-08 13:42] LABS: BACTERIA, URINE MANY /hpf; BILIRUBIN, URINE NEG (NEG); BLOOD, URINE NEG (NEG); GLUCOSE,URINE NEG (NEG); KETONE, URINE NEG (NEG); NITRITE,URINE NEG (NEG); URINE COLOR YELLOW (YELLW/STRAW); URINE LEUKOCYTE ESTERASE LARGE (NEG)
[2017-12-08 13:44] LABS: AMORPHOUS SEDIMENT, URINE FEW
[2017-12-08 15:15] VITALS: BP 124/85; PULSE 100; RESP 16; TEMP 100; O2SAT 96
[2017-12-08 20:00] VITALS: BP 146/96; PULSE 88; RESP 20; TEMP 99.9; O2SAT 98
[2017-12-09] VITALS: BP 131/90; PULSE 75; RESP 20; TEMP 99.8; O2SAT 95
[2017-12-09 04:00] VITALS: BP 124/78; PULSE 100; RESP 20; TEMP 100; O2SAT 98
[2017-12-09] MEDS: FREE WATER G-TUBE SCH ×4 (05:26→23:56)
[2017-12-09] MEDS: hydrALAZINE HCL 50 MG TAB PEG SCH ×4 (05:26→23:56)
[2017-12-09] MEDS: NIFEdipine 20 MG CAP PEG SCH ×4 (05:26→23:56)
[2017-12-09 07:15] VITALS: BP 148/80; PULSE 84; RESP 18; TEMP 99.9; O2SAT 95
--- NOTE | 2017-12-09 08:10 | HHI.PR ---
Subjective Remarks Patient seen and examined this morning. Temperature 100, pulse 100, respiratory rate 20, blood pressure 11/29/77, pulse ox 98 on room air. Patient is unable to communicate. Does not grimace during exam. UA obtained yesterday consistent with urinary tract infection and cultures are pending. Will replace urinary catheter and start Rocephin at this time. Objective Vitals Vital Signs Date Time Temp Pulse Resp B/P (MAP) Pulse Ox O2 Delivery O2 Flow Rate FiO2 12/09/17 04:00 100.0 100 20 124/78 (93) 98 12/09/17 00:00 99.8 75 20 131/90 (104) 95 12/08/17 20:00 99.9 88 20 146/96 (113) 98 12/08/17 15:15 100.0 100 16 124/85 (98) 96 12/08/17 11:15 100.0 84 16 134/70 (91) 97 I/O 12/08/17 12/08/17 12/08/17 12/09/17 12/09/17 12/09/17 07:00 15:00 23:00 07:00 15:00 23:00 Intake Total 930 ml 1200 ml 1080 ml Output Total 450 ml 920.0 ml 650 ml Balance 480 ml 280.0 ml 430 ml Intake Oral 0 ml Tube Feeding 240 ml 750 ml 480 ml Tube Irrigant 390 ml Other 300 ml 450 ml 600 ml Output Urine Total 450 ml 570 ml 350 ml Stool Total 350 ml 300 ml Tube Feeding Residual Discard 0 ml Result Diagram: 12/07/17 0645 12/07/17 0645 Imaging Last Impressions Upper Extremity Ultrasound 11/06/17 0000 Signed Impressions: Service Date/Time: Monday, November 06, 2017 14:17 - CONCLUSION: Normal examination. KLanre Perez MD Pelvis CT 10/13/17 0000 Signed Impressions: Service Date/Time: Friday, October 13, 2017 12:02 - CONCLUSION: 1. Decubitus ulcer with small abscess in the right posterior perineal region measuring 3.1 x 4.6 cm. There is also a small abscess posterior and to the left of the rectum measuring 3.2 x 2.3 cm. Jann Weber MD Chest X-Ray 10/12/17 0000 Signed Impressions: Service Date/Time: October 12:18 - CONCLUSION: No acute disease. Jann Weber MD Head CT 04/25/17 0000 Signed Impressions: Service Date/Time: Tuesday, April 25, 2017 18:02 - CONCLUSION: 1. Evolving left thalamic hematoma. No new hemorrhage. Adi Quarles MD Abdomen X-Ray 04/12/17 1538 Signed Impressions: Service Date/Time: Wednesday, April 12, 2017 17:29 - CONCLUSION: Nonobstructive bowel gas pattern. Suresh Zapata MD Neck CTA 04/10/17 0000 Signed Impressions: Service Date/Time: Monday, April 10, 2017 22:28 - CONCLUSION: The internal carotid arteries are normal bilaterally. No significant atherosclerotic disease is noted. Eliud Du MD Head CTA 04/10/17 0000 Signed Impressions: Service Date/Time: Monday, April 10, 2017 22:50 - CONCLUSION: Mild dilatation of the basilar tip without discrete aneurysm. Some narrowing of the left middle cerebral branch after the bifurcation. Prominent left thalamic hemorrhage. Eliud Du MD Objective Remarks GENERAL: NAD, A&Ox0 HEAD: Normocephalic. NECK: Supple, trachea midline. No lymphadenopathy. EYES: No scleral icterus. No injection or drainage. CARDIOVASCULAR: Regular rate and rhythm without murmurs, gallops, or rubs. RESPIRATORY: Breath sounds equal bilaterally. No accessory muscle use. GASTROINTESTINAL: Abdomen soft, non-tender, nondistended. MUSCULOSKELETAL: No cyanosis, or edema. SKIN: Warm and dry. NEURO: No focal neurological deficitis. Procedures Peg Tube placed 05/08/17 (Dr. De Los Santos) Date of Insertion: Nov 08, 2017 A/P Problem List: (1) Major neurocognitive disorder ICD Code: F03.90 - Unspecified dementia without behavioral disturbance Plan: Assessment and Plan 62-year-old female admitted secondary to intracranial hemorrhage on 04/10/17. Continue to monitor patient clinically. She appears stable today. Chronic debilitation we'll place her risk for infections so we will follow her clinically and with intermittent blood work. Temperature 100.0 Fahrenheit overnight. UA consistent with urinary tract infection. Starting Rocephin at this time. No changes otherwise. Status post intracranial hemorrhage Status post hemorrhagic CVA Continue PT, OT, and ST Patient was homeless prior to admit Poor access for inpatient rehabilitation Family desires aggressive measures for therapy and placement Independent funding unavailable for placement Long-term prognosis is poor No significant capacity for regaining full functionality UTI Replace Cruz at this time Start Rocephin 1 g Urine cultures pending Dysphagia Related to intracranial bleed history Status post PEG placement on 05/09/17 Continue tube feeding Hypertension emergency Follow blood pressures Continue the following blood pressures: Nifedipine 40 mg every 6 hours Lisinopril 10 mg twice daily Apresoline 50 mg every 6 hours Catapres TTS 3 patch Metoprolol 100 mg twice daily HCTZ 25 mg daily Apresoline, clonidine, Vasotec as needed Hyperglycemia Glucerna for tube feeds Follow blood sugars intermittently Xeroderma on bilateral feet Lac-Hydrin 12% Lotion continued. DVT Prophylaxis: SCDs given history of intracranial hemorrhage Discharge planning Difficult placement Palliative care following (2) Hemiparesis ICD Code: G81.90 - Hemiplegia, unspecified affecting unspecified side Status: Acute (3) Intracranial hemorrhage ICD Code: I62.9 - Nontraumatic intracranial hemorrhage, unspecified Status: Chronic (4) Aphasia ICD Code: R47.01 - Aphasia Karri Merchant MD, R3 Dec 09, 2017 08:10
[2017-12-09] MEDS: POLYETHYLENE GLYCOL 17 GM PKG PO SCH (09:54)
[2017-12-09] MEDS: LANSOPRAZOLE SOLUTAB 30 MG TAB G-TUBE SCH (09:54)
[2017-12-09] MEDS: METOPROLOL TARTRATE 25 MG TAB PEG SCH ×2 (09:55→21:17)
[2017-12-09] MEDS: LACTIC ACID (AMMONIUM LACTATE) 12% LOTION 225 GM BTL TOPICAL SCH ×2 (09:55→21:17)
[2017-12-09] MEDS: HYDROCHLOROTHIAZIDE 25 MG TAB PO SCH (09:55)
[2017-12-09] MEDS: cefTRIAXone INJ 1,000 MG in SODIUM CHLORIDE 0.9% INJ 100 ML IV SCH (15:27)
[2017-12-09 19:15] VITALS: BP 123/82; PULSE 83; RESP 20; TEMP 100; O2SAT 99
[2017-12-10] MEDS: FREE WATER G-TUBE SCH ×4 (04:54→23:28)
[2017-12-10] MEDS: NIFEdipine 20 MG CAP PEG SCH ×4 (04:55→23:29)
[2017-12-10] MEDS: hydrALAZINE HCL 50 MG TAB PEG SCH ×4 (04:55→23:28)
[2017-12-10 05:25] LABS: HEMOGLOBIN 11.1 GM/DL (11.6-15.3); MEAN CORPUSCULAR HEMOGLOBIN 28.7 PG (27.0-34.0); MEAN CORPUSCULAR HGB CONC 34.5 % (32.0-36.0); MEAN PLATELET VOLUME 8.4 FL (7.0-11.0); PLATELET COUNT 293 TH/MM3 (150-450); RED BLOOD COUNT 3.86 MIL/MM3 (4.00-5.30); RED CELL DISTRIBUTION WIDTH 14.6 % (11.6-17.2); WHITE BLOOD COUNT 5.9 TH/MM3 (4.0-11.0)
[2017-12-10 05:36] LABS: ALBUMIN 3.2 GM/DL (3.4-5.0); ALT (GPT) 15 U/L (10-53); AST (GOT) 17 U/L (15-37); BICARBONATE 29.1 MEQ/L (21.0-32.0); BLOOD UREA NITROGEN 14 MG/DL (7-18); CALCIUM 8.6 MG/DL (8.5-10.1); CHLORIDE 102 MEQ/L (98-107); CREATININE 0.39 MG/DL (0.50-1.00); GLOMERULAR FILTRATION RATE 201 ML/MIN (>89); GLUCOSE,RANDOM 105 MG/DL (74-106); SODIUM (NA) 139 MEQ/L (136-145)
[2017-12-10 05:39] LABS: ALKALINE PHOSPHATASE 72 U/L (45-117); TOTAL BILIRUBIN ADULT 0.3 MG/DL (0.2-1.0); TOTAL PROTEIN 7.1 GM/DL (6.4-8.2)
[2017-12-10 07:15] VITALS: BP 109/75; PULSE 113; RESP 15; TEMP 100.5; O2SAT 94
[2017-12-10] MEDS: cefTRIAXone INJ 1,000 MG in SODIUM CHLORIDE 0.9% INJ 100 ML IV SCH (08:58)
[2017-12-10] MEDS: LANSOPRAZOLE SOLUTAB 30 MG TAB G-TUBE SCH (08:59)
[2017-12-10] MEDS: METOPROLOL TARTRATE 25 MG TAB PEG SCH ×2 (08:59→20:41)
[2017-12-10] MEDS: POLYETHYLENE GLYCOL 17 GM PKG PO SCH (08:59)
[2017-12-10] MEDS: LACTIC ACID (AMMONIUM LACTATE) 12% LOTION 225 GM BTL TOPICAL SCH ×2 (08:59→20:41)
--- NOTE | 2017-12-10 09:49 | HHI.PR ---
Subjective Remarks The patient appeared comfortable in bed. She was able to open her eyes and track me. She was able to move some of her extremities upon command. She denied any pain. No concerns from nursing. Objective Vitals Vital Signs Date Time Temp Pulse Resp B/P (MAP) Pulse Ox O2 Delivery O2 Flow Rate FiO2 12/10/17 07:15 100.5 113 15 109/75 (86) 94 12/09/17 19:15 100.0 83 20 123/82 (96) 99 I/O 12/09/17 12/09/17 12/09/17 12/10/17 12/10/17 12/10/17 07:00 15:00 23:00 07:00 15:00 23:00 Intake Total 1080 ml 800 ml 885 ml Output Total 650 ml 950 ml 725 ml Balance 430 ml -150 ml 160 ml Intake Oral 0 ml Tube Feeding 480 ml 480 ml 485 ml Other 600 ml 320 ml 400 ml Output Urine Total 350 ml 600 ml 400 ml Stool Total 300 ml 250 ml 325 ml Drainage Total 100 ml 0 ml Result Diagram: 12/10/17 0503 12/10/17 0503 Imaging Last Impressions Upper Extremity Ultrasound 11/06/17 0000 Signed Impressions: Service Date/Time: Monday, November 06, 2017 14:17 - CONCLUSION: Normal examination. KLanre Perez MD Pelvis CT 10/13/17 0000 Signed Impressions: Service Date/Time: Friday, October 13, 2017 12:02 - CONCLUSION: 1. Decubitus ulcer with small abscess in the right posterior perineal region measuring 3.1 x 4.6 cm. There is also a small abscess posterior and to the left of the rectum measuring 3.2 x 2.3 cm. Jann Weber MD Chest X-Ray 10/12/17 0000 Signed Impressions: Service Date/Time: October 12:18 - CONCLUSION: No acute disease. Jann Weber MD Head CT 04/25/17 0000 Signed Impressions: Service Date/Time: Tuesday, April 25, 2017 18:02 - CONCLUSION: 1. Evolving left thalamic hematoma. No new hemorrhage. Adi Quarles MD Abdomen X-Ray 04/12/17 1538 Signed Impressions: Service Date/Time: Wednesday, April 12, 2017 17:29 - CONCLUSION: Nonobstructive bowel gas pattern. Suresh Zapata MD Neck CTA 04/10/17 0000 Signed Impressions: Service Date/Time: Monday, April 10, 2017 22:28 - CONCLUSION: The internal carotid arteries are normal bilaterally. No significant atherosclerotic disease is noted. Eliud Du MD Head CTA 04/10/17 0000 Signed Impressions: Service Date/Time: Monday, April 10, 2017 22:50 - CONCLUSION: Mild dilatation of the basilar tip without discrete aneurysm. Some narrowing of the left middle cerebral branch after the bifurcation. Prominent left thalamic hemorrhage. Eliud Du MD Objective Remarks GENERAL: Resting comfortably in bed. HEAD: Normocephalic. NECK: Supple, trachea midline. No lymphadenopathy. EYES: No scleral icterus. No injection or drainage. CARDIOVASCULAR: Regular rate and rhythm without murmurs, gallops, or rubs. RESPIRATORY: Breath sounds equal bilaterally. No accessory muscle use. GASTROINTESTINAL: Abdomen soft, non-tender, nondistended. MUSCULOSKELETAL: No cyanosis, or edema. SKIN: Warm and dry. NEURO: Right upper extremity is weaker than the left upper extremity. The patient is unable to move her lower extremities. She is able to track and follow commands to a degree. Procedures Peg Tube placed 05/08/17 (Dr. De Los Santos) Medications and IVs Current Medications Medications (Trade) Dose Ordered Sig/Reymundo Route Start Time Stop Time Status Last Admin (Dulcolax Supp) 10 mg DAILY PRN RECTAL 04/10/17 22:00 (Lac-Hydrin 12% Lotion) 1 applic BID TOPICAL 05/04/17 14:00 12/10/17 08:59 (Prevacid Odt) 30 mg DAILY G-TUBE 05/10/17 09:00 12/10/17 08:59 (Apresoline) 25 mg Q4HR PRN PEG 05/18/17 14:45 11/04/17 14:28 (Zofran Liq) 4 mg Q6H PRN PEG 05/26/17 10:00 (Catapres-Tts 0.3 Mg Patch.7d) 1 patch Q7D T-DERMAL 06/06/17 15:00 12/05/17 14:12 Miscellaneous Information 1 Q7D T-DERMAL 06/06/17 15:00 12/05/17 14:12 (Tylenol) 650 mg Q6H PRN PEG 06/16/17 16:00 Future Hold 10/17/17 19:29 (Procardia) 40 mg Q6HR PEG 06/26/17 12:00 12/10/17 04:55 (Senna Liq) 8.8 mg DAILY PEG 06/29/17 09:00 Future Hold 10/17/17 10:02 (Apresoline) 50 mg Q6HR PEG 08/19/17 12:00 12/10/17 04:55 (Hydrodiuril) 25 mg DAILY PO 09/27/17 09:15 Future hold 12/09/17 09:55 (Pill Splitter) 1 ea UNSCH PRN OTHER 10/17/17 17:45 12/08/17 20:45 (Free Water) 150 ml Q6HR G-TUBE 10/19/17 12:00 12/10/17 04:54 (NS Flush) 2 ml UNSCH PRN IV FLUSH 11/17/17 10:15 11/17/17 12:19 (Lopressor) 25 mg BID PEG 11/24/17 21:00 12/09/17 21:17 Ceftriaxone Sodium 1000 mg/ Sodium Chloride 100 ml @ 200 mls/hr Q24H IV 12/09/17 09:00 12/10/17 08:58 (Miralax) 17 gm DAILY PO 12/09/17 09:15 12/10/17 08:59 Date of Insertion: Nov 08, 2017 A/P Problem List: (1) Major neurocognitive disorder ICD Code: F03.90 - Unspecified dementia without behavioral disturbance (2) Hemiparesis ICD Code: G81.90 - Hemiplegia, unspecified affecting unspecified side Status: Acute (3) Intracranial hemorrhage ICD Code: I62.9 - Nontraumatic intracranial hemorrhage, unspecified Status: Chronic (4) Aphasia ICD Code: R47.01 - Aphasia Assessment and Plan 62-year-old female admitted secondary to intracranial hemorrhage on 04/10/17. Status post hemorrhagic CVA Continue PT, OT, and ST Patient was homeless prior to admit Poor access for inpatient rehabilitation Family desires aggressive measures for therapy and placement Independent funding unavailable for placement Long-term prognosis is poor No significant capacity for regaining full functionality Palliative care following UTI Replace Cruz at this time Continue Rocephin 1 g IV daily Urine cultures pending. Currently growing gram-negative rods Dysphagia Related to intracranial bleed history Status post PEG placement on 05/09/17 Continue tube feeding Hypertension emergency Follow blood pressures. Well-controlled at this time Continue the following blood pressure meds: Nifedipine 40 mg every 6 hours Lisinopril 10 mg twice daily Apresoline 50 mg every 6 hours Catapres TTS 3 patch Metoprolol 100 mg twice daily HCTZ 25 mg daily Apresoline, clonidine, Vasotec as needed Hyperglycemia Glucerna for tube feeds Follow blood sugars intermittently Xeroderma on bilateral feet Lac-Hydrin 12% Lotion continued. DVT Prophylaxis: SCDs given history of intracranial hemorrhage Suresh Hermosillo DO Dec 10, 2017 09:48
[2017-12-10] MEDS: HYDROCHLOROTHIAZIDE 25 MG TAB PO SCH (10:07)
[2017-12-10 12:00] VITALS: BP 114/70; PULSE 101; RESP 17; TEMP 100.6; O2SAT 99
[2017-12-10 19:15] VITALS: BP 100/68; PULSE 113; RESP 18; TEMP 100.3; O2SAT 96
[2017-12-10 20:21] VITALS: BP 136/97
[2017-12-11] MEDS: NIFEdipine 20 MG CAP PEG SCH ×3 (05:44→17:12)
[2017-12-11] MEDS: hydrALAZINE HCL 100 MG TAB PEG SCH ×3 (05:44→17:12)
[2017-12-11] MEDS: FREE WATER G-TUBE SCH ×3 (05:44→17:11)
[2017-12-11 08:00] VITALS: BP 106/71; PULSE 88; RESP 14; TEMP 99.7; O2SAT 97
[2017-12-11] MEDS: cefTRIAXone INJ 1,000 MG in SODIUM CHLORIDE 0.9% INJ 100 ML IV SCH (08:20)
[2017-12-11] MEDS: POLYETHYLENE GLYCOL 17 GM PKG PO SCH (08:20)
[2017-12-11] MEDS: SODIUM CHLORIDE 0.9% FLUSH 10 ML FLUSH IV FLUSH PRN (08:20)
[2017-12-11] MEDS: METOPROLOL TARTRATE 25 MG TAB PEG SCH ×2 (08:21→20:58)
[2017-12-11] MEDS: LANSOPRAZOLE SOLUTAB 30 MG TAB G-TUBE SCH (08:21)
[2017-12-11] MEDS: HYDROCHLOROTHIAZIDE 25 MG TAB PO SCH (08:21)
[2017-12-11] MEDS: LACTIC ACID (AMMONIUM LACTATE) 12% LOTION 225 GM BTL TOPICAL SCH ×2 (08:22→20:58)
--- NOTE | 2017-12-11 11:06 | HHI.PR ---
Subjective Remarks The patient appeared comfortable. No acute concerns per nursing. The patient has been having low-grade fevers. Objective Vitals Vital Signs Date Time Temp Pulse Resp B/P (MAP) Pulse Ox O2 Delivery O2 Flow Rate FiO2 12/11/17 08:00 99.7 88 14 106/71 (83) 97 12/10/17 20:21 136/97 (110) 12/10/17 19:15 100.3 113 18 100/68 (79) 96 12/10/17 12:00 100.6 101 17 114/70 (85) 99 I/O 12/10/17 12/10/17 12/10/17 12/11/17 12/11/17 12/11/17 07:00 15:00 23:00 07:00 15:00 23:00 Intake Total 885 ml 1070 ml 910 ml Output Total 725 ml 1000 ml 400 ml Balance 160 ml 70 ml 510 ml Tube Feeding 485 ml 820 ml 440 ml Tube Irrigant 250 ml 170 ml Other 400 ml 300 ml Output Urine Total 400 ml 500 ml 400 ml Stool Total 325 ml 500 ml Drainage Total 0 ml Result Diagram: 12/10/17 0503 12/10/17 0503 Imaging Last Impressions Upper Extremity Ultrasound 11/06/17 0000 Signed Impressions: Service Date/Time: Monday, November 06, 2017 14:17 - CONCLUSION: Normal examination. Kelby Perez MD Pelvis CT 10/13/17 0000 Signed Impressions: Service Date/Time: Friday, October 13, 2017 12:02 - CONCLUSION: 1. Decubitus ulcer with small abscess in the right posterior perineal region measuring 3.1 x 4.6 cm. There is also a small abscess posterior and to the left of the rectum measuring 3.2 x 2.3 cm. Jann Weber MD Chest X-Ray 10/12/17 0000 Signed Impressions: Service Date/Time: October 12:18 - CONCLUSION: No acute disease. Jann Weber MD Head CT 04/25/17 0000 Signed Impressions: Service Date/Time: Tuesday, April 25, 2017 18:02 - CONCLUSION: 1. Evolving left thalamic hematoma. No new hemorrhage. Adi Quarles MD Abdomen X-Ray 04/12/17 1538 Signed Impressions: Service Date/Time: Wednesday, April 12, 2017 17:29 - CONCLUSION: Nonobstructive bowel gas pattern. Suresh Zapata MD Neck CTA 04/10/17 0000 Signed Impressions: Service Date/Time: Monday, April 10, 2017 22:28 - CONCLUSION: The internal carotid arteries are normal bilaterally. No significant atherosclerotic disease is noted. Eliud Du MD Head CTA 04/10/17 0000 Signed Impressions: Service Date/Time: Monday, April 10, 2017 22:50 - CONCLUSION: Mild dilatation of the basilar tip without discrete aneurysm. Some narrowing of the left middle cerebral branch after the bifurcation. Prominent left thalamic hemorrhage. Eliud Du MD Objective Remarks GENERAL: Resting comfortably in bed. HEAD: Normocephalic. NECK: Supple, trachea midline. No lymphadenopathy. EYES: No scleral icterus. No injection or drainage. CARDIOVASCULAR: Regular rate and rhythm without murmurs, gallops, or rubs. RESPIRATORY: Breath sounds equal bilaterally. No accessory muscle use. GASTROINTESTINAL: Abdomen soft, non-tender, nondistended. MUSCULOSKELETAL: No cyanosis, or edema. Wound VAC in place. SKIN: Warm and dry. NEURO: Right upper extremity is weaker than the left upper extremity. The patient is unable to move her lower extremities. She is able to track and follow commands to a degree. Procedures Peg Tube placed 05/08/17 (Dr. De Los Santos) Medications and IVs Current Medications Medications (Trade) Dose Ordered Sig/Reymundo Route Start Time Stop Time Status Last Admin (Dulcolax Supp) 10 mg DAILY PRN RECTAL 04/10/17 22:00 (Lac-Hydrin 12% Lotion) 1 applic BID TOPICAL 05/04/17 14:00 12/11/17 08:22 (Prevacid Odt) 30 mg DAILY G-TUBE 05/10/17 09:00 12/11/17 08:21 (Apresoline) 25 mg Q4HR PRN PEG 05/18/17 14:45 11/04/17 14:28 (Zofran Liq) 4 mg Q6H PRN PEG 05/26/17 10:00 (Catapres-Tts 0.3 Mg Patch.7d) 1 patch Q7D T-DERMAL 06/06/17 15:00 12/05/17 14:12 Miscellaneous Information 1 Q7D T-DERMAL 06/06/17 15:00 12/05/17 14:12 (Tylenol) 650 mg Q6H PRN PEG 06/16/17 16:00 Future Hold 10/17/17 19:29 (Procardia) 40 mg Q6HR PEG 06/26/17 12:00 12/11/17 05:44 (Senna Liq) 8.8 mg DAILY PEG 06/29/17 09:00 Future Hold 10/17/17 10:02 (Hydrodiuril) 25 mg DAILY PO 09/27/17 09:15 Future hold 12/11/17 08:21 (Pill Splitter) 1 ea UNSCH PRN OTHER 10/17/17 17:45 12/08/17 20:45 (Free Water) 150 ml Q6HR G-TUBE 10/19/17 12:00 12/11/17 05:44 (NS Flush) 2 ml UNSCH PRN IV FLUSH 11/17/17 10:15 12/11/17 08:20 (Lopressor) 25 mg BID PEG 11/24/17 21:00 12/11/17 08:21 Ceftriaxone Sodium 1000 mg/ Sodium Chloride 100 ml @ 200 mls/hr Q24H IV 12/09/17 09:00 12/11/17 08:20 (Miralax) 17 gm DAILY PO 12/09/17 09:15 12/11/17 08:20 (Apresoline) 50 mg Q6HR PEG 12/11/17 06:00 12/11/17 05:44 Date of Insertion: Nov 08, 2017 A/P Problem List: (1) Major neurocognitive disorder ICD Code: F03.90 - Unspecified dementia without behavioral disturbance (2) Hemiparesis ICD Code: G81.90 - Hemiplegia, unspecified affecting unspecified side Status: Acute (3) Intracranial hemorrhage ICD Code: I62.9 - Nontraumatic intracranial hemorrhage, unspecified Status: Chronic (4) Aphasia ICD Code: R47.01 - Aphasia Assessment and Plan 62-year-old female admitted secondary to intracranial hemorrhage on 04/10/17. Status post hemorrhagic CVA Continue PT, OT, and ST Patient was homeless prior to admit Poor access for inpatient rehabilitation Family desires aggressive measures for therapy and placement Independent funding unavailable for placement Long-term prognosis is poor No significant capacity for regaining full functionality Palliative care following UTI/ low-grade fevers Replace Cruz at this time Continue Rocephin 1 g IV daily Urine cultures pending. Currently growing gram-negative rods Repeat chest x-ray Dysphagia Related to intracranial bleed history Status post PEG placement on 05/09/17 Continue tube feeding Hypertension emergency Follow blood pressures. Well-controlled at this time Continue the following blood pressure meds: Nifedipine 40 mg every 6 hours Lisinopril 10 mg twice daily Apresoline 50 mg every 6 hours Catapres TTS 3 patch Metoprolol 100 mg twice daily HCTZ 25 mg daily Apresoline, clonidine, Vasotec as needed Hyperglycemia Glucerna for tube feeds Follow blood sugars intermittently Xeroderma on bilateral feet Lac-Hydrin 12% Lotion continued. DVT Prophylaxis: SCDs given history of intracranial hemorrhage Suresh Hermosillo DO Dec 11, 2017 11:06
--- NOTE | 2017-12-11 12:53 | RADRPT ---
EXAM DATE/TIME: 12/11/2017 11:21 [facility] COMPARISON: CHEST SINGLE AP, October 12, 2017, 12:18. INDICATIONS : Evaluate for pneumonia. MEDICAL HISTORY : Left intracranial hemorrhage. Right hemiparesis SURGICAL HISTORY : None. ENCOUNTER: Subsequent ACUITY: 3 days PAIN SCORE: Non-responsive. LOCATION: Bilateral chest FINDINGS: Minimal patchiness is noted within the right lung base. The left lung is clear. The heart is stable. Degenerative changes and scoliosis of the thoracic spine are noted. CONCLUSION: Minimal patchiness within the right lung base. Stable cardiomegaly. Degenerative stone ges and scoliosis of the thoracic spine. Denny Hart MD on December 11, 2017 at 12:50 Board Certified Radiologist. This report was verified electronically.
[2017-12-11 19:15] VITALS: BP 113/83; PULSE 100; RESP 16; TEMP 100.8; O2SAT 98
--- NOTE | 2017-12-11 19:57 | HHI.PR ---
Subjective Remarks NOT SEEN Objective Vitals Vital Signs Date Time Temp Pulse Resp B/P (MAP) Pulse Ox O2 Delivery O2 Flow Rate FiO2 12/11/17 08:00 99.7 88 14 106/71 (83) 97 12/10/17 20:21 136/97 (110) I/O 12/10/17 12/10/17 12/10/17 12/11/17 12/11/17 12/11/17 07:00 15:00 23:00 07:00 15:00 23:00 Intake Total 885 ml 1070 ml 910 ml 900 ml Output Total 725 ml 1000 ml 400 ml 900 ml Balance 160 ml 70 ml 510 ml 0 ml IV Total 100 ml Tube Feeding 485 ml 820 ml 440 ml 400 ml Tube Irrigant 250 ml 170 ml Other 400 ml 300 ml 400 ml Output Urine Total 400 ml 500 ml 400 ml 400 ml Stool Total 325 ml 500 ml 500 ml Drainage Total 0 ml Result Diagram: 12/10/17 0503 12/10/17 0503 Imaging Last Impressions Chest X-Ray 12/11/17 0000 Signed Impressions: Service Date/Time: Monday, December 11, 2017 11:21 - CONCLUSION: Minimal patchiness within the right lung base. Stable cardiomegaly. Degenerative changes and scoliosis of the thoracic spine. Denny Hart MD Upper Extremity Ultrasound 11/06/17 0000 Signed Impressions: Service Date/Time: Monday, November 06, 2017 14:17 - CONCLUSION: Normal examination. Kelby Perez MD Pelvis CT 10/13/17 0000 Signed Impressions: Service Date/Time: Friday, October 13, 2017 12:02 - CONCLUSION: 1. Decubitus ulcer with small abscess in the right posterior perineal region measuring 3.1 x 4.6 cm. There is also a small abscess posterior and to the left of the rectum measuring 3.2 x 2.3 cm. Jann Weber MD Head CT 04/25/17 0000 Signed Impressions: Service Date/Time: Tuesday, April 25, 2017 18:02 - CONCLUSION: 1. Evolving left thalamic hematoma. No new hemorrhage. Adi Quarles MD Abdomen X-Ray 04/12/17 1538 Signed Impressions: Service Date/Time: Wednesday, April 12, 2017 17:29 - CONCLUSION: Nonobstructive bowel gas pattern. Suresh Zapata MD Neck CTA 04/10/17 0000 Signed Impressions: Service Date/Time: Monday, April 10, 2017 22:28 - CONCLUSION: The internal carotid arteries are normal bilaterally. No significant atherosclerotic disease is noted. Eliud Du MD Head CTA 04/10/17 0000 Signed Impressions: Service Date/Time: Monday, April 10, 2017 22:50 - CONCLUSION: Mild dilatation of the basilar tip without discrete aneurysm. Some narrowing of the left middle cerebral branch after the bifurcation. Prominent left thalamic hemorrhage. Eliud Du MD Objective Remarks GENERAL: Resting comfortably in bed. HEAD: Normocephalic. NECK: Supple, trachea midline. No lymphadenopathy. EYES: No scleral icterus. No injection or drainage. CARDIOVASCULAR: Regular rate and rhythm without murmurs, gallops, or rubs. RESPIRATORY: Breath sounds equal bilaterally. No accessory muscle use. GASTROINTESTINAL: Abdomen soft, non-tender, nondistended. MUSCULOSKELETAL: No cyanosis, or edema. Wound VAC in place. SKIN: Warm and dry. NEURO: Right upper extremity is weaker than the left upper extremity. The patient is unable to move her lower extremities. She is able to track and follow commands to a degree. Procedures Peg Tube placed 05/08/17 (Dr. De Los Santos) Date of Insertion: Nov 08, 2017 A/P Problem List: (1) Major neurocognitive disorder ICD Code: F03.90 - Unspecified dementia without behavioral disturbance (2) Hemiparesis ICD Code: G81.90 - Hemiplegia, unspecified affecting unspecified side Status: Acute (3) Intracranial hemorrhage ICD Code: I62.9 - Nontraumatic intracranial hemorrhage, unspecified Status: Chronic (4) Aphasia ICD Code: R47.01 - Aphasia Assessment and Plan 62-year-old female admitted secondary to intracranial hemorrhage on 04/10/17. Status post hemorrhagic CVA Continue PT, OT, and ST Patient was homeless prior to admit Poor access for inpatient rehabilitation Family desires aggressive measures for therapy and placement Independent funding unavailable for placement Long-term prognosis is poor No significant capacity for regaining full functionality Palliative care following Complicated UTI/ low-grade fevers Replaced Cruz 12/09/17 Switch Rocephin 1 g IV daily to Cipro PEG til 12/23 Urine cultures with Enterobacter Repeat chest x-ray abnormal Dysphagia Related to intracranial bleed history Status post PEG placement on 05/09/17 Continue tube feeding Hypertension emergency Follow blood pressures. Well-controlled at this time Continue the following blood pressure meds: Nifedipine 40 mg every 6 hours Lisinopril 10 mg twice daily Apresoline 50 mg every 6 hours Catapres TTS 3 patch Metoprolol 100 mg twice daily HCTZ 25 mg daily Apresoline, clonidine, Vasotec as needed Hyperglycemia. A1c 6.2 Glucerna for tube feeds Follow blood sugars intermittently Xeroderma on bilateral feet Lac-Hydrin 12% Lotion continued. DVT Prophylaxis: SCDs given history of intracranial hemorrhage Earnest Fischer MD Dec 11, 2017 19:57
[2017-12-12] MEDS: hydrALAZINE HCL 100 MG TAB PEG SCH ×5 (00:11→22:38)
[2017-12-12] MEDS: FREE WATER G-TUBE SCH ×4 (05:27→17:41)
[2017-12-12] MEDS: NIFEdipine 20 MG CAP PEG SCH ×4 (05:28→17:41)
[2017-12-12 07:18] VITALS: BP 118/69; PULSE 111; RESP 14; TEMP 98.8; O2SAT 99
[2017-12-12] MEDS: METOPROLOL TARTRATE 25 MG TAB PEG SCH ×2 (08:34→20:41)
[2017-12-12] MEDS: cefTRIAXone INJ 1,000 MG in SODIUM CHLORIDE 0.9% INJ 100 ML IV SCH (08:34)
[2017-12-12] MEDS: POLYETHYLENE GLYCOL 17 GM PKG PO SCH (08:34)
[2017-12-12] MEDS: LANSOPRAZOLE SOLUTAB 30 MG TAB G-TUBE SCH (08:34)
[2017-12-12] MEDS: LACTIC ACID (AMMONIUM LACTATE) 12% LOTION 225 GM BTL TOPICAL SCH ×2 (08:34→20:41)
[2017-12-12] MEDS: HYDROCHLOROTHIAZIDE 25 MG TAB PO SCH (08:34)
[2017-12-12] MEDS: REMOVE OLD CATAPRES (CLONIDINE) PATCH T-DERMAL SCH (15:00)
[2017-12-12] MEDS: cloNIDine HCL 0.3 MG/24 HR PATCH T-DERMAL SCH (15:04)
--- NOTE | 2017-12-12 16:12 | HHI.PR ---
Subjective Remarks Patient seen this afternoon around 1 PM. No acute changes per nursing. Patient appears to deny pain, however no significant communication. Objective Vital Signs Date Time Temp Pulse Resp B/P (MAP) Pulse Ox O2 Delivery O2 Flow Rate FiO2 12/12/17 07:18 98.8 111 14 118/69 (85) 99 12/11/17 19:15 100.8 100 16 113/83 (93) 98 I/O 12/11/17 12/11/17 12/11/17 12/12/17 12/12/17 12/12/17 07:00 15:00 23:00 07:00 15:00 23:00 Intake Total 910 ml 900 ml 1187 ml Output Total 400 ml 2075 ml 400 ml Balance 510 ml -1175 ml 787 ml IV Total 100 ml Tube Feeding 440 ml 400 ml 487 ml Tube Irrigant 170 ml 380 ml Other 300 ml 400 ml 320 ml Output Urine Total 400 ml 1575 ml 400 ml Stool Total 500 ml Result Diagram: 12/10/17 0503 12/10/17 0503 Procedures No procedures performed Objective Remarks GENERAL: Patient lying in bed. Appears comfortable. Appears to answer no in regards to if she has pain. No other meaningful communication. SKIN: Warm and dry. HEAD: Normocephalic. EYES: No scleral icterus. No injection or drainage. NECK: Supple, trachea midline. No JVD. CARDIOVASCULAR: Regular rate and rhythm without murmurs, gallops, or rubs. RESPIRATORY: Breath sounds equal bilaterally. No accessory muscle use. GASTROINTESTINAL: Abdomen soft, non-tender, nondistended. MUSCULOSKELETAL: No cyanosis, or edema. BACK: Nontender without obvious deformity. No CVA tenderness. A/P Assessment and Plan . Patient seen and examined. Continue antibiotics for UTI. Appreciate wound management assistance. 62-year-old female admitted secondary to intracranial hemorrhage on 04/10/17. //Status post hemorrhagic CVA Continue PT, OT, and ST Patient was homeless prior to admit Poor access for inpatient rehabilitation Family desires aggressive measures for therapy and placement Independent funding unavailable for placement Long-term prognosis is poor No significant capacity for regaining full functionality Palliative care following //UTI low-grade fevers Replace Cruz at this time Continue Rocephin 1 g IV daily Urine cultures pending. Currently growing gram-negative rods Repeat chest x-ray //Dysphagia Related to intracranial bleed history Status post PEG placement on 05/09/17 Continue tube feeding //Hypertension emergency Follow blood pressures. Well-controlled at this time Continue the following blood pressure meds: Nifedipine 40 mg every 6 hours Lisinopril 10 mg twice daily Apresoline 50 mg every 6 hours Catapres TTS 3 patch Metoprolol 100 mg twice daily HCTZ 25 mg daily Apresoline, clonidine, Vasotec as needed //Hyperglycemia Glucerna for tube feeds Follow blood sugars intermittently //Xeroderma on bilateral feet Lac-Hydrin 12% Lotion continued. //DVT Prophylaxis: SCDs given history of intracranial hemorrhage Discharge Planning Case management following. Appreciate assistance. Kevyn Cheema MD Dec 12, 2017 16:12
[2017-12-12 19:15] VITALS: BP 121/78; PULSE 125; RESP 16; TEMP 99.9; O2SAT 98
[2017-12-12] MEDS: D5-1/2 NS + KCL 20 MEQ INJ 1,000 ML IV SCH (20:40)
[2017-12-13] MEDS: FREE WATER G-TUBE SCH ×5 (05:46→23:10)
[2017-12-13] MEDS: NIFEdipine 20 MG CAP PEG SCH ×5 (05:47→23:10)
[2017-12-13] MEDS: hydrALAZINE HCL 100 MG TAB PEG SCH ×3 (05:47→23:10)
[2017-12-13] MEDS: D5-1/2 NS + KCL 20 MEQ INJ 1,000 ML IV SCH (07:10)
[2017-12-13 07:15] VITALS: BP 125/90; PULSE 80; RESP 18; TEMP 98.3; O2SAT 98
[2017-12-13] MEDS: POLYETHYLENE GLYCOL 17 GM PKG PO SCH (10:03)
[2017-12-13] MEDS: cefTRIAXone INJ 1,000 MG in SODIUM CHLORIDE 0.9% INJ 100 ML IV SCH (10:04)
[2017-12-13] MEDS: METOPROLOL TARTRATE 25 MG TAB PEG SCH ×2 (10:04→23:10)
[2017-12-13] MEDS: LANSOPRAZOLE SOLUTAB 30 MG TAB G-TUBE SCH (10:04)
[2017-12-13] MEDS: HYDROCHLOROTHIAZIDE 25 MG TAB PO SCH (10:04)
[2017-12-13] MEDS: LACTIC ACID (AMMONIUM LACTATE) 12% LOTION 225 GM BTL TOPICAL SCH ×2 (10:05→21:00)
--- NOTE | 2017-12-13 13:12 | HHI.GIFU ---
Subjective Remarks Pt resting in bed. GI reconsulted for PEG tube replacement, old PEG apparatus was broken an someone cut tube and switched it out so it could continue to be used, is patent, but needs to be exchanged. (Lawanda CejaP) Objective Vitals I&O Vital Signs Date Time Temp Pulse Resp B/P (MAP) Pulse Ox O2 Delivery O2 Flow Rate FiO2 12/12/17 19:15 99.9 125 16 121/78 (92) 98 I/O 12/12/17 12/12/17 12/12/17 12/13/17 12/13/17 12/13/17 07:00 15:00 23:00 07:00 15:00 23:00 Intake Total 1187 ml 980 ml 1252 ml Output Total 400 ml 720 ml 1440 ml Balance 787 ml 260 ml -188 ml IV Total 100 ml 732 ml Tube Feeding 487 ml 480 ml 0 ml Tube Irrigant 380 ml 200 ml Other 320 ml 400 ml 320 ml Output Urine Total 400 ml 400 ml 1440 ml Stool Total 320 ml Laboratory Date/Time Source Procedure Growth Status 10/10/17 08:10 Blood Peripheral Aerobic Blood Culture - Final NO GROWTH IN 5 DAYS Complete 10/10/17 08:10 Blood Peripheral Anaerobic Blood Culture - Final NO GROWTH IN 5 DAYS Complete 10/14/17 13:30 Nasal Aspirate Influenza Types A,B Antigen ([place]) - Final NEGATIVE FOR FLU A AND B ANTIGEN.... Complete 12/08/17 11:00 Urine Clean Catch Urine Culture - Final Enterobacter Aerogenes Complete 10/13/17 10:00 Wound Skin Gram Stain - Final Complete 10/13/17 10:00 Wound Culture - Final Pseudomonas Aeruginosa Complete Imaging Last Impressions Chest X-Ray 12/11/17 0000 Signed Impressions: Service Date/Time: Monday, December 11, 2017 11:21 - CONCLUSION: Minimal patchiness within the right lung base. Stable cardiomegaly. Degenerative changes and scoliosis of the thoracic spine. Denny Hart MD Upper Extremity Ultrasound 11/06/17 0000 Signed Impressions: Service Date/Time: Monday, November 06, 2017 14:17 - CONCLUSION: Normal examination. Kelby Perez MD Pelvis CT 10/13/17 0000 Signed Impressions: Service Date/Time: Friday, October 13, 2017 12:02 - CONCLUSION: 1. Decubitus ulcer with small abscess in the right posterior perineal region measuring 3.1 x 4.6 cm. There is also a small abscess posterior and to the left of the rectum measuring 3.2 x 2.3 cm. Jann Weber MD Head CT 04/25/17 0000 Signed Impressions: Service Date/Time: Tuesday, April 25, 2017 18:02 - CONCLUSION: 1. Evolving left thalamic hematoma. No new hemorrhage. Adi Quarles MD Abdomen X-Ray 04/12/17 1538 Signed Impressions: Service Date/Time: Wednesday, April 12, 2017 17:29 - CONCLUSION: Nonobstructive bowel gas pattern. Suresh Zapata MD Neck CTA 04/10/17 0000 Signed Impressions: Service Date/Time: Monday, April 10, 2017 22:28 - CONCLUSION: The internal carotid arteries are normal bilaterally. No significant atherosclerotic disease is noted. Eliud Du MD Head CTA 04/10/17 0000 Signed Impressions: Service Date/Time: Monday, April 10, 2017 22:50 - CONCLUSION: Mild dilatation of the basilar tip without discrete aneurysm. Some narrowing of the left middle cerebral branch after the bifurcation. Prominent left thalamic hemorrhage. Eliud Du MD Physical Exam HEENT: Normocephalic CHEST: Respirations even/unlabored, CTA CARDIAC: RRR ABDOMEN: +BS, soft, nondistended, nontender. PEG tube site without redness or drainage. EXTREMITIES: No cyanosis SUPPLIER SPECIALIST: awake (Lawanda Ceja) Assessment and Plan Plan ASSESSMENT: - Dysphagia . Pt unidentified [place] with right sided weakness and leftward gaze. 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 S/P neurosurgery evaluation--- > no surgical intervention and to keep systolic blood pressure around 120-150. ST following for severe oropharyngeal dysphagia and cognitive/speech deficits and recommended speech therapy orders and that she remain NPO. S/P EGD with PEG tube placement (05/08)-----> Esophagus: moderate tube related GERD. Stomach: mild chronic gastritis. Biopsy taken from antrum Duodenum: normal PEG tube placed in usual way without apparent complication. Excellent transillumination 3 inches above the umbilicus. Excellent indentation. Site without redness or swelling. Plastic Mould Maker following, recommends Jevity 1.5 at 60cc/hr. - Gastritis, pathology pending. On pepcid will change to prevacid. 12/13/17 - exchanged PEG tube, replaced with 20fr gastrostomy tube, inflated balloon with 15 cc. Inserted with ease, pt tolerated well. d/w PLATEN BUILDER UP Tori. PLAN: - hold TF - stat KUB to verify PEG tube position - ok to resume TF if KUB shows PEG in good position - GI will sign off, please reconsult as needed - Pt seen and examined by Dr. Guzman and myself and this note is written on her behalf (Lawanda Ceja) Physician Comments seen, examined agree with above Gastrografin study -peg in place currently started on feeding -tolerating well (Britta Guzman MD) Lawanda Ceja Dec 13, 2017 13:12 Britta Guzman MD Dec 13, 2017 21:42
--- NOTE | 2017-12-13 15:05 | RADRPT ---
EXAM DATE/TIME: 12/13/2017 14:17 [facility] COMPARISON: ABDOMEN KUB ONLY, April 12, 2017, 17:29. INDICATIONS : PEG tube placement. MEDICAL HISTORY : None. SURGICAL HISTORY : None. ENCOUNTER: Initial ACUITY: 1 day PAIN SCORE: Non-responsive. LOCATION: abdomen. FINDINGS: PEG tube in stomach without extra luminal contrast. CONCLUSION: PEG tube in stomach.. Harry Dumas MD FACR on December 13, 2017 at 15:02 Board Certified Radiologist. This report was verified electronically.
[2017-12-13] MEDS ORDERED: DIATRIZOATE MEGLUM/DIATRIZOATE SOD 120 ML BTL (for RAD DIAG) PEG ONE (15:17)
--- NOTE | 2017-12-13 19:21 | HHI.PR ---
Subjective Remarks Patient seen this afternoon around 4 PM. Status post PEG tube exchange today. Patient appears to deny pain. Discussed with nursing. Restart tube feeds. Objective Vital Signs Date Time Temp Pulse Resp B/P (MAP) Pulse Ox O2 Delivery O2 Flow Rate FiO2 12/13/17 07:15 98.3 80 18 125/90 (102) 98 I/O 12/12/17 12/12/17 12/12/17 12/13/17 12/13/17 12/13/17 07:00 15:00 23:00 07:00 15:00 23:00 Intake Total 1187 ml 980 ml 1252 ml 100 ml 320 ml Output Total 400 ml 720 ml 1440 ml 1800 ml Balance 787 ml 260 ml -188 ml 100 ml -1480 ml Intake Oral 0 ml IV Total 100 ml 732 ml 100 ml Tube Feeding 487 ml 480 ml 0 ml 80 ml Tube Irrigant 380 ml 200 ml Other 320 ml 400 ml 320 ml 240 ml Output Urine Total 400 ml 400 ml 1440 ml 1350 ml Stool Total 320 ml 450 ml Result Diagram: 12/10/17 0503 12/10/17 0503 Procedures No procedures performed Objective Remarks GENERAL: Patient lying in bed. Appears comfortable. Appears to answer no in regards to if she has pain. No other meaningful communication. SKIN: Warm and dry. HEAD: Normocephalic. EYES: No scleral icterus. No injection or drainage. NECK: Supple, trachea midline. No JVD. CARDIOVASCULAR: Regular rate and rhythm without murmurs, gallops, or rubs. RESPIRATORY: Breath sounds equal bilaterally. No accessory muscle use. GASTROINTESTINAL: Abdomen soft, non-tender, nondistended. PEG tube in place without leakage. MUSCULOSKELETAL: No cyanosis, or edema. BACK: Nontender without obvious deformity. No CVA tenderness. A/P Assessment and Plan . Patient seen and examined. Replaced PEG tube. Appreciate gastroenterology assistance. Discontinue IV fluids, start back on tube feeds with free water flushes. Check labs tomorrow. 62-year-old female admitted secondary to intracranial hemorrhage on 04/10/17. //Status post hemorrhagic CVA Continue PT, OT, and ST Patient was homeless prior to admit Poor access for inpatient rehabilitation Family desires aggressive measures for therapy and placement Independent funding unavailable for placement Long-term prognosis is poor No significant capacity for regaining full functionality Palliative care following //UTI low-grade fevers Replace Cruz at this time Continue Rocephin 1 g IV daily Urine cultures pending. Currently growing gram-negative rods Repeat chest x-ray //Dysphagia Related to intracranial bleed history Status post PEG placement on 05/09/17 Continue tube feeding //Hypertension emergency Follow blood pressures. Well-controlled at this time Continue the following blood pressure meds: Nifedipine 40 mg every 6 hours Lisinopril 10 mg twice daily Apresoline 50 mg every 6 hours Catapres TTS 3 patch Metoprolol 100 mg twice daily HCTZ 25 mg daily Apresoline, clonidine, Vasotec as needed //Hyperglycemia Glucerna for tube feeds Follow blood sugars intermittently //Xeroderma on bilateral feet Lac-Hydrin 12% Lotion continued. //DVT Prophylaxis: SCDs given history of intracranial hemorrhage Discharge Planning Case management following. Appreciate assistance. Kevyn Cheema MD Dec 13, 2017 19:21
[2017-12-13 20:00] VITALS: BP 135/90; PULSE 83; RESP 20; TEMP 98.7; O2SAT 97
[2017-12-14] MEDS: FREE WATER G-TUBE SCH ×3 (06:00→16:01)
[2017-12-14] MEDS: NIFEdipine 20 MG CAP PEG SCH ×3 (06:10→16:40)
[2017-12-14] MEDS: hydrALAZINE HCL 100 MG TAB PEG SCH ×3 (06:10→21:17)
[2017-12-14 07:58] LABS: AUTOMATED NEUTROPHIL # 2.5 TH/MM3 (1.8-7.7); BASOPHIL % 0.8 % (0.0-2.0); EOSINOPHIL # 0.3 TH/MM3 (0-0.4); HEMATOCRIT 29.3 % (35.0-46.0); HEMOGLOBIN 9.8 GM/DL (11.6-15.3); LYMPH % 30.2 % (9.0-44.0); LYMPHOCYTE # 1.5 TH/MM3 (1.0-4.8); MEAN CELL VOLUME 83.2 FL (80.0-100.0); MEAN CORPUSCULAR HEMOGLOBIN 27.8 PG (27.0-34.0); MEAN CORPUSCULAR HGB CONC 33.4 % (32.0-36.0); MEAN PLATELET VOLUME 8.7 FL (7.0-11.0); MONOCYTE # 0.6 TH/MM3 (0-0.9); PLATELET COUNT 332 TH/MM3 (150-450); RED BLOOD COUNT 3.53 MIL/MM3 (4.00-5.30); RED CELL DISTRIBUTION WIDTH 14.1 % (11.6-17.2)
[2017-12-14 08:00] VITALS: BP 106/76; PULSE 66; RESP 14; TEMP 98.9; O2SAT 99
[2017-12-14 08:02] LABS: ALBUMIN 2.8 GM/DL (3.4-5.0); BICARBONATE 29.3 MEQ/L (21.0-32.0); CALCIUM 9.1 MG/DL (8.5-10.1); CREATININE 0.37 MG/DL (0.50-1.00); MAGNESIUM 2.3 MG/DL (1.5-2.5); PHOSPHORUS 2.8 MG/DL (2.5-4.9)
[2017-12-14] MEDS: LACTIC ACID (AMMONIUM LACTATE) 12% LOTION 225 GM BTL TOPICAL SCH ×2 (09:00→21:16)
[2017-12-14] MEDS: POLYETHYLENE GLYCOL 17 GM PKG PO SCH (09:08)
[2017-12-14] MEDS: cefTRIAXone INJ 1,000 MG in SODIUM CHLORIDE 0.9% INJ 100 ML IV SCH (09:08)
[2017-12-14] MEDS: HYDROCHLOROTHIAZIDE 25 MG TAB PO SCH (09:08)
[2017-12-14] MEDS: LANSOPRAZOLE SOLUTAB 30 MG TAB G-TUBE SCH (09:09)
[2017-12-14] MEDS: METOPROLOL TARTRATE 25 MG TAB PEG SCH ×2 (09:10→21:16)
--- NOTE | 2017-12-14 19:48 | HHI.PR ---
Subjective Remarks Patient seen this afternoon around 3 PM. Discussed with nursing. No acute changes. Patient appears to deny pain. Objective Vital Signs Date Time Temp Pulse Resp B/P (MAP) Pulse Ox O2 Delivery O2 Flow Rate FiO2 12/14/17 08:00 98.9 66 14 106/76 (86) 99 12/13/17 20:00 98.7 83 20 135/90 (105) 97 I/O 12/13/17 12/13/17 12/13/17 12/14/17 12/14/17 12/14/17 07:00 15:00 23:00 07:00 15:00 23:00 Intake Total 1252 ml 100 ml 320 ml 923 ml 980 ml Output Total 1440 ml 1800 ml 300 ml 1210 ml Balance -188 ml 100 ml -1480 ml 623 ml -230 ml Intake Oral 0 ml IV Total 732 ml 100 ml 100 ml Tube Feeding 0 ml 80 ml 623 ml 480 ml Tube Irrigant 200 ml Other 320 ml 240 ml 300 ml 400 ml Output Urine Total 1440 ml 1350 ml 830 ml Stool Total 450 ml 300 ml Drainage Total 380 ml # Bowel Movements 2 Result Diagram: 12/14/1771412/14/17714 Procedures No procedures performed Objective Remarks GENERAL: Patient lying in bed. Appears comfortable. Appears to answer no in regards to if she has pain. No other meaningful communication. No change on exam today. SKIN: Warm and dry. HEAD: Normocephalic. EYES: No scleral icterus. No injection or drainage. NECK: Supple, trachea midline. No JVD. CARDIOVASCULAR: Regular rate and rhythm without murmurs, gallops, or rubs. RESPIRATORY: Breath sounds equal bilaterally. No accessory muscle use. GASTROINTESTINAL: Abdomen soft, non-tender, nondistended. PEG tube in place without leakage. MUSCULOSKELETAL: No cyanosis, or edema. BACK: Nontender without obvious deformity. No CVA tenderness. A/P Assessment and Plan 12/14/17 patient seen and examined. Receiving tube feeds without complication. Discussed with nursing. Chronic anemia appears relatively stable. Electrolytes unremarkable. 62-year-old female admitted secondary to intracranial hemorrhage on 04/10/17. //Status post hemorrhagic CVA Continue PT, OT, and ST Patient was homeless prior to admit Poor access for inpatient rehabilitation Family desires aggressive measures for therapy and placement Independent funding unavailable for placement Long-term prognosis is poor No significant capacity for regaining full functionality Palliative care following //UTI low-grade fevers Replace Cruz at this time Continue Rocephin 1 g IV daily Urine cultures pending. Currently growing gram-negative rods Repeat chest x-ray //Dysphagia Related to intracranial bleed history Status post PEG placement on 05/09/17 Continue tube feeding //Hypertension emergency Follow blood pressures. Well-controlled at this time Continue the following blood pressure meds: Nifedipine 40 mg every 6 hours Lisinopril 10 mg twice daily Apresoline 50 mg every 6 hours Catapres TTS 3 patch Metoprolol 100 mg twice daily HCTZ 25 mg daily Apresoline, clonidine, Vasotec as needed //Hyperglycemia Glucerna for tube feeds Follow blood sugars intermittently //Xeroderma on bilateral feet Lac-Hydrin 12% Lotion continued. //DVT Prophylaxis: SCDs given history of intracranial hemorrhage Discharge Planning Case management following. Appreciate assistance. Kevyn Cheema MD Dec 14, 2017 19:48
[2017-12-14 20:00] VITALS: BP_SYST 114; BP_SYST 118; BP_DIAS 88; PULSE 81; RESP 20; TEMP 99.2; O2SAT 98
[2017-12-15] VITALS: BP 113/78; PULSE 75; RESP 20; TEMP 96.4; O2SAT 98
[2017-12-15] MEDS: NIFEdipine 20 MG CAP PEG SCH ×5 (00:14→23:01)
[2017-12-15 04:00] VITALS: BP 100/62; PULSE 73; RESP 20; TEMP 99.5; O2SAT 98
[2017-12-15] MEDS: FREE WATER G-TUBE SCH ×5 (06:00→22:58)
[2017-12-15] MEDS: hydrALAZINE HCL 100 MG TAB PEG SCH ×3 (06:15→21:00)
[2017-12-15 07:15] VITALS: BP 142/74; PULSE 89; RESP 20; TEMP 99.3; O2SAT 97
[2017-12-15] MEDS: POLYETHYLENE GLYCOL 17 GM PKG PO SCH (09:00)
[2017-12-15] MEDS: METOPROLOL TARTRATE 25 MG TAB PEG SCH ×2 (09:18→21:00)
[2017-12-15] MEDS: LANSOPRAZOLE SOLUTAB 30 MG TAB G-TUBE SCH (09:18)
[2017-12-15] MEDS: LACTIC ACID (AMMONIUM LACTATE) 12% LOTION 225 GM BTL TOPICAL SCH ×2 (09:18→21:01)
[2017-12-15] MEDS: HYDROCHLOROTHIAZIDE 25 MG TAB PO SCH (09:18)
[2017-12-15] MEDS: cefTRIAXone INJ 1,000 MG in SODIUM CHLORIDE 0.9% INJ 100 ML IV SCH (12:28)
--- NOTE | 2017-12-15 18:15 | HHI.PR ---
Subjective Remarks seen today around 3 PM. Discussed with nursing. No acute issues.patient again appears to deny pain. Objective Vital Signs Date Time Temp Pulse Resp B/P (MAP) Pulse Ox O2 Delivery O2 Flow Rate FiO2 12/15/17 04:00 99.5 73 20 100/62 (75) 98 12/15/17 00:00 96.4 75 20 113/78 (90) 98 12/14/17 20:00 99.2 81 20 114/88 (97) 98 12/14/17 20:00 99.2 81 20 118/88 (98) 98 I/O 12/14/17 12/14/17 12/14/17 12/15/17 12/15/17 12/15/17 07:00 15:00 23:00 07:00 15:00 23:00 Intake Total 923 ml 980 ml 1180 ml Output Total 300 ml 1210.0 ml 500 ml Balance 623 ml -230.0 ml 680 ml Intake Oral 0 ml IV Total 100 ml Tube Feeding 623 ml 480 ml 480 ml Other 300 ml 400 ml 700 ml Output Urine Total 830 ml 500 ml Stool Total 300 ml Tube Feeding Residual Discard 0 ml Drainage Total 380 ml 0 ml # Bowel Movements 2 0 Result Diagram: 12/14/1771412/14/17714 Procedures No procedures performed Objective Remarks GENERAL: Patient lying in bed. Appears comfortable. Appears to answer no in regards to if she has pain. No other meaningful communication. again,No change on exam today. SKIN: Warm and dry. HEAD: Normocephalic. EYES: No scleral icterus. No injection or drainage. NECK: Supple, trachea midline. No JVD. CARDIOVASCULAR: Regular rate and rhythm without murmurs, gallops, or rubs. RESPIRATORY: Breath sounds equal bilaterally. No accessory muscle use. GASTROINTESTINAL: Abdomen soft, non-tender, nondistended. PEG tube in place without leakage. MUSCULOSKELETAL: No cyanosis, or edema. BACK: Nontender without obvious deformity. No CVA tenderness. A/P Assessment and Plan 12/15/17. Patient seen and examined. No acute issues. Nursing. dignishield has been removed. Bowel function intact. 12/14/17 patient seen and examined. Receiving tube feeds without complication. Discussed with nursing. Chronic anemia appears relatively stable. Electrolytes unremarkable. 62-year-old female admitted secondary to intracranial hemorrhage on 04/10/17. //Status post hemorrhagic CVA Continue PT, OT, and ST Patient was homeless prior to admit Poor access for inpatient rehabilitation Family desires aggressive measures for therapy and placement Independent funding unavailable for placement Long-term prognosis is poor No significant capacity for regaining full functionality Palliative care following //UTI low-grade fevers Replace Cruz at this time Continue Rocephin 1 g IV daily Urine cultures pending. Currently growing gram-negative rods Repeat chest x-ray //Dysphagia Related to intracranial bleed history Status post PEG placement on 05/09/17 Continue tube feeding //Hypertension emergency Follow blood pressures. Well-controlled at this time Continue the following blood pressure meds: Nifedipine 40 mg every 6 hours Lisinopril 10 mg twice daily Apresoline 50 mg every 6 hours Catapres TTS 3 patch Metoprolol 100 mg twice daily HCTZ 25 mg daily Apresoline, clonidine, Vasotec as needed //Hyperglycemia Glucerna for tube feeds Follow blood sugars intermittently //Xeroderma on bilateral feet Lac-Hydrin 12% Lotion continued. //DVT Prophylaxis: SCDs given history of intracranial hemorrhage Discharge Planning Case management following. Appreciate assistance. Kevyn Cheema MD Dec 15, 2017 18:15
[2017-12-15 19:44] VITALS: BP 110/70; PULSE 76; RESP 20; TEMP 97.9; O2SAT 98
[2017-12-16 01:04] VITALS: BP 91/62; PULSE 84; RESP 20; TEMP 98.9; O2SAT 98
[2017-12-16] MEDS: FREE WATER G-TUBE SCH ×3 (06:00→17:24)
[2017-12-16] MEDS: NIFEdipine 20 MG CAP PEG SCH ×4 (06:12→23:47)
[2017-12-16] MEDS: hydrALAZINE HCL 100 MG TAB PEG SCH ×3 (06:12→21:21)
[2017-12-16 07:15] VITALS: BP 135/72; PULSE 80; RESP 18; TEMP 98; O2SAT 96
[2017-12-16] MEDS: POLYETHYLENE GLYCOL 17 GM PKG PO SCH (09:00)
--- NOTE | 2017-12-16 09:25 | HHI.PR ---
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 Unknown time of onset. Patient was found by children playing in the park. Upon EMS arrival they noted right-sided weakness with a leftward gaze. Patient is nonverbal, she is following commands and is moving her left upper and left lower extremity. EKG was performed in the field and shows ST elevations in V1 through V3 with ST depressions and T-wave inversions in V5 and V6, therefore STEMI alert was also called by EMS. Patient was also notably hypertensive with blood pressures of 250s over 150s. Upon arrival to the emergency department the patient is awake, nonverbal, follows commands, protecting her airway, is able to move her left arm and left leg, however is unable to move her right arm and right leg. Patient was started on a Cardene drip for suspected intracranial hemorrhage and promptly taken to CT scan. At 8:05 PM case was discussed by with on-call cloth bleaching range operator chief Dr. Quarles who agrees that this is most likely an intracranial hemorrhage based on clinical presentation, therefore STEMI alert was not initiated. CT of the head confirmed thalamic bleed with IVH extension. 12/24: Stable seen in her bedroom no changes to anterior assessment, no nausea, vomit or diarrhea. non verbal. Objective Vital Signs Date Time Temp Pulse Resp B/P (MAP) Pulse Ox O2 Delivery O2 Flow Rate FiO2 12/16/17 01:04 98.9 84 20 91/62 (72) 98 12/15/17 19:44 97.9 76 20 110/70 (83) 98 I/O 12/15/17 12/15/17 12/15/17 12/16/17 12/16/17 12/16/17 07:00 15:00 23:00 07:00 15:00 23:00 Intake Total 1180 ml 1180 ml 1180 ml Output Total 500 ml 1000.0 ml 645 ml Balance 680 ml 180.0 ml 535 ml Intake Oral 0 ml 0 ml 0 ml Tube Feeding 480 ml 480 ml 480 ml Other 700 ml 700 ml 700 ml Output Urine Total 500 ml 1000 ml 525 ml Tube Feeding Residual Discard 0 ml Drainage Total 0 ml 120 ml # Bowel Movements 0 2 1 Result Diagram: 12/14/17 0715 12/14/17714 Imaging Last Impressions Abdomen X-Ray 12/13/17 0000 Signed Impressions: Service Date/Time: Wednesday, December 13, 2017 14:17 - CONCLUSION: PEG tube in stomach.. Harry Dumas MD FACR Chest X-Ray 12/11/17 0000 Signed Impressions: Service Date/Time: Monday, December 11, 2017 11:21 - CONCLUSION: Minimal patchiness within the right lung base. Stable cardiomegaly. Degenerative changes and scoliosis of the thoracic spine. Denny Hart MD Upper Extremity Ultrasound 11/06/17 0000 Signed Impressions: Service Date/Time: Monday, November 06, 2017 14:17 - CONCLUSION: Normal examination. K. Byron Perez MD Pelvis CT 10/13/17 0000 Signed Impressions: Service Date/Time: Friday, October 13, 2017 12:02 - CONCLUSION: 1. Decubitus ulcer with small abscess in the right posterior perineal region measuring 3.1 x 4.6 cm. There is also a small abscess posterior and to the left of the rectum measuring 3.2 x 2.3 cm. Jann Weber MD Head CT 04/25/17 0000 Signed Impressions: Service Date/Time: Tuesday, April 25, 2017 18:02 - CONCLUSION: 1. Evolving left thalamic hematoma. No new hemorrhage. Adi Quarles MD Neck CTA 04/10/17 0000 Signed Impressions: Service Date/Time: Monday, April 10, 2017 22:28 - CONCLUSION: The internal carotid arteries are normal bilaterally. No significant atherosclerotic disease is noted. Eliud Du MD Head CTA 04/10/17 0000 Signed Impressions: Service Date/Time: Monday, April 10, 2017 22:50 - CONCLUSION: Mild dilatation of the basilar tip without discrete aneurysm. Some narrowing of the left middle cerebral branch after the bifurcation. Prominent left thalamic hemorrhage. Eliud Du MD Procedures No procedures performed Other Results Laboratory Tests Test 04/10/17 21:04 04/10/17 23:30 04/11/17 10:31 04/14/17 20:01 Urine Opiates Screen NEG Urine Barbiturates Screen NEG Urine Amphetamines Screen NEG Urine Benzodiazepines Screen NEG Urine Cocaine Screen NEG Urine Cannabinoids Screen NEG Nasal Screen MRSA (PCR) MRSA NOT DETECTED Troponin I 0.03 NG/ML Triglycerides Level 54 MG/DL Cholesterol Level 164 MG/DL LDL Cholesterol 81 MG/DL HDL Cholesterol 72.5 MG/DL Cholesterol/HDL Ratio 2.26 RATIO Vitamin B12 Level 228 PG/ML Folate 8.6 NG/ML Free Thyroxine 1.11 NG/DL Thyroid Stimulating Hormone 3rd Gen 2.360 uIU/ML Hepatitis A IgM Antibody NEGATIVE Hepatitis B Surface Antigen NEGATIVE Hepatitis B Core IgM Antibody NEGATIVE Hepatitis C Antibody NEGATIVE Test 04/19/17 04:19 04/22/17 17:45 05/04/17 20:33 05/08/17 07:53 Activated Partial Thromboplast Time 29.2 SEC Urine WBC Clumps MOD Urine Hyaline Casts 16 /lpf Urine Mucus MANY /lpf Hemoglobin A1c 6.2 % Prothrombin Time 11.4 SEC Prothromb Time International Ratio 1.0 RATIO Test 05/28/17 13:00 06/27/17 17:30 06/28/17 04:50 10/10/17 22:00 Urine Collection Type CATH Urine Transitional Epithelial Cells 0-5 /hpf Urine Collection Time 1300 Clue Cells (Wet Prep) NONE SEEN Vaginal Trichomonas (Wet Prep) NONE SEEN Vaginal Yeast (Wet Prep) NONE SEEN Chlamydia trachomatis DNA (PCR) NOT DETECTED Neisseria gonorrhoeae DNA (PCR) NOT DETECTED Urine Squamous Epithelial Cells 0-5 /hpf Test 10/12/17 05:40 10/13/17 06:00 10/14/17 09:10 10/14/17 13:30 Platelet Estimate NORMAL Platelet Morphology Comment NORMAL Red Cell Morphology Comment NORMAL Direct Bilirubin 0.2 MG/DL Indirect Bilirubin 0.2 MG/DL Lactic Acid Level 0.8 mmol/L Stool C. difficile Toxin (PCR) NEGATIVE Stl C. difficile Toxin Epiderm 027 PRESUMPTIVE NEGATIVE Test 10/16/17 21:30 10/17/17 16:30 10/20/17 13:05 11/16/17 05:17 Vancomycin Level Trough 15.7 MCG/ML Total Creatine Kinase 55 U/L Transferrin 148 MG/DL Differential Total Cells Counted 100 Neutrophils % (Manual) 26 % Lymphocytes % 61 % Monocytes % 8 % Eosinophils % 5 % Neutrophils # (Manual) 0.9 TH/MM3 Test 12/04/17 11:10 12/08/17 11:00 12/10/17 05:03 12/14/17 07:15 Prealbumin 14 MG/DL Urine Color YELLOW Urine Turbidity HAZY Urine pH 6.0 Urine Specific Tebbetts 1.010 Urine Protein NEG mg/dL Urine Glucose (UA) NEG mg/dL Urine Ketones NEG mg/dL Urine Occult Blood NEG Urine Nitrite NEG Urine Bilirubin NEG Urine Urobilinogen LESS THAN 2.0 MG/DL Urine Leukocyte Esterase LARGE Urine RBC 2 /hpf Urine WBC 3 /hpf Urine Amorphous Sediment FEW Urine Bacteria MANY /hpf Microscopic Urinalysis Comment CULTURE INDICATED Blood Urea Nitrogen 14 MG/DL 16 MG/DL Creatinine 0.39 MG/DL 0.37 MG/DL Random Glucose 105 MG/DL 99 MG/DL Total Protein 7.1 GM/DL Albumin 3.2 GM/DL 2.8 GM/DL Calcium Level 8.6 MG/DL 9.1 MG/DL Alkaline Phosphatase 72 U/L Aspartate Amino Transf (AST/SGOT) 17 U/L Alanine Aminotransferase (ALT/SGPT) 15 U/L Total Bilirubin 0.3 MG/DL Sodium Level 139 MEQ/L 139 MEQ/L Potassium Level 3.5 MEQ/L 3.5 MEQ/L Chloride Level 102 MEQ/L 104 MEQ/L Carbon Dioxide Level 29.1 MEQ/L 29.3 MEQ/L White Blood Count 5.0 TH/MM3 Red Blood Count 3.53 MIL/MM3 Hemoglobin 9.8 GM/DL Hematocrit 29.3 % Mean Corpuscular Volume 83.2 FL Mean Corpuscular Hemoglobin 27.8 PG Mean Corpuscular Hemoglobin Concent 33.4 % Red Cell Distribution Width 14.1 % Platelet Count 332 TH/MM3 Mean Platelet Volume 8.7 FL Neutrophils (%) (Auto) 51.0 % Lymphocytes (%) (Auto) 30.2 % Monocytes (%) (Auto) 12.0 % Eosinophils (%) (Auto) 6.0 % Basophils (%) (Auto) 0.8 % Neutrophils # (Auto) 2.5 TH/MM3 Lymphocytes # (Auto) 1.5 TH/MM3 Monocytes # (Auto) 0.6 TH/MM3 Eosinophils # (Auto) 0.3 TH/MM3 Basophils # (Auto) 0.0 TH/MM3 CBC Comment DIFF FINAL Differential Comment Phosphorus Level 2.8 MG/DL Magnesium Level 2.3 MG/DL Anion Gap 6 MEQ/L Estimat Glomerular Filtration Rate 213 ML/MIN Objective Remarks GENERAL: Patient lying in bed. Appears comfortable. Non verbal HEAD: Normocephalic. EYES: No scleral icterus. No injection or drainage. NECK: Supple, trachea midline. No JVD. CARDIOVASCULAR: Regular rate and rhythm without murmurs, gallops, or rubs. RESPIRATORY: Breath sounds equal bilaterally. No accessory muscle use. GASTROINTESTINAL: Abdomen soft, non-tender, nondistended. PEG tube in place without leakage. MUSCULOSKELETAL: No cyanosis, or edema. BACK: Nontender without obvious deformity. No CVA tenderness. Medications and IVs Current Medications Medications (Trade) Dose Ordered Sig/Reymundo Route Start Time Stop Time Status Last Admin (Dulcolax Supp) 10 mg DAILY PRN RECTAL 04/10/17 22:00 (Lac-Hydrin 12% Lotion) 1 applic BID TOPICAL 05/04/17 14:00 12/15/17 21:01 (Prevacid Odt) 30 mg DAILY G-TUBE 05/10/17 09:00 12/15/17 09:18 (Apresoline) 25 mg Q4HR PRN PEG 05/18/17 14:45 11/04/17 14:28 (Zofran Liq) 4 mg Q6H PRN PEG 05/26/17 10:00 (Catapres-Tts 0.3 Mg Patch.7d) 1 patch Q7D T-DERMAL 06/06/17 15:00 12/12/17 15:04 Miscellaneous Information 1 Q7D T-DERMAL 06/06/17 15:00 12/12/17 15:00 (Tylenol) 650 mg Q6H PRN PEG 06/16/17 16:00 Future Hold 10/17/17 19:29 (Procardia) 40 mg Q6HR PEG 06/26/17 12:00 12/16/17 06:12 (Senna Liq) 8.8 mg DAILY PEG 06/29/17 09:00 Future Hold 10/17/17 10:02 (Hydrodiuril) 25 mg DAILY PO 09/27/17 09:15 Future hold 12/15/17 09:18 (Pill Splitter) 1 ea UNSCH PRN OTHER 10/17/17 17:45 12/08/17 20:45 (Free Water) 150 ml Q6HR G-TUBE 10/19/17 12:00 12/15/17 19:23 (NS Flush) 2 ml UNSCH PRN IV FLUSH 11/17/17 10:15 12/11/17 08:20 (Lopressor) 25 mg BID PEG 11/24/17 21:00 12/15/17 21:00 Ceftriaxone Sodium 1000 mg/ Sodium Chloride 100 ml @ 200 mls/hr Q24H IV 12/09/17 09:00 12/15/17 12:28 (Miralax) 17 gm DAILY PO 12/09/17 09:15 12/14/17 09:08 (Apresoline) 50 mg Q8HR PEG 12/12/17 22:00 12/16/17 06:12 A/P Assessment and Plan //Status post hemorrhagic CVA Continue PT, OT, and ST Patient was homeless prior to admit Poor access for inpatient rehabilitation Family desires aggressive measures for therapy and placement Independent funding unavailable for placement Long-term prognosis is poor No significant capacity for regaining full functionality Palliative care following //UTI low-grade fevers Replace Cruz at this time Continue Rocephin 1 g IV daily Urine cultures pending. Currently growing gram-negative rods Repeat chest x-ray //Dysphagia Related to intracranial bleed history Status post PEG placement on 05/09/17 Continue tube feeding //Hypertension emergency Follow blood pressures. Well-controlled at this time Continue the following blood pressure meds: Nifedipine 40 mg every 6 hours Lisinopril 10 mg twice daily Apresoline 50 mg every 6 hours Catapres TTS 3 patch Metoprolol 100 mg twice daily HCTZ 25 mg daily Apresoline, clonidine, Vasotec as needed //Hyperglycemia Glucerna for tube feeds Follow blood sugars intermittently //Xeroderma on bilateral feet Lac-Hydrin 12% Lotion continued. Coccyx ulcer status post wound vac in place wound care following. //DVT Prophylaxis: SCDs given history of intracranial hemorrhage No changes to anterior assessment. Discharge Planning Glazier Apprentice working on Discharge not yet placement. Percy Frank MD Dec 16, 2017 09:25
[2017-12-16] MEDS: HYDROCHLOROTHIAZIDE 25 MG TAB PO SCH (09:38)
[2017-12-16] MEDS: METOPROLOL TARTRATE 25 MG TAB PEG SCH ×2 (09:38→20:12)
[2017-12-16] MEDS: LACTIC ACID (AMMONIUM LACTATE) 12% LOTION 225 GM BTL TOPICAL SCH ×2 (09:39→20:12)
[2017-12-16] MEDS: cefTRIAXone INJ 1,000 MG in SODIUM CHLORIDE 0.9% INJ 100 ML IV SCH (09:39)
[2017-12-16] MEDS: LANSOPRAZOLE SOLUTAB 30 MG TAB G-TUBE SCH (09:39)
[2017-12-16] MEDS ORDERED: POTASSIUM CHLORIDE 25 MEQ EFFERVESCENT TAB PO ONE (10:00)
[2017-12-16] MEDS ORDERED: POLYETHYLENE GLYCOL 17 GM PKG PO PRN (18:00)
[2017-12-16 20:13] VITALS: BP 121/82; PULSE 84; RESP 20; TEMP 98.2; O2SAT 99
[2017-12-16 23:48] VITALS: BP 115/69; PULSE 70; RESP 20; TEMP 97.9; O2SAT 97
[2017-12-17 04:00] VITALS: BP 147/73; PULSE 75; RESP 20; TEMP 99.3; O2SAT 97
[2017-12-17] MEDS: hydrALAZINE HCL 100 MG TAB PEG SCH ×3 (05:56→22:00)
[2017-12-17] MEDS: NIFEdipine 20 MG CAP PEG SCH ×2 (05:56→11:55)
[2017-12-17] MEDS: FREE WATER G-TUBE SCH ×4 (05:56→16:51)
[2017-12-17] MEDS: METOPROLOL TARTRATE 25 MG TAB PEG SCH ×2 (07:45→21:12)
[2017-12-17] MEDS: cefTRIAXone INJ 1,000 MG in SODIUM CHLORIDE 0.9% INJ 100 ML IV SCH (07:45)
[2017-12-17] MEDS: HYDROCHLOROTHIAZIDE 25 MG TAB PO SCH (07:45)
[2017-12-17] MEDS: LACTIC ACID (AMMONIUM LACTATE) 12% LOTION 225 GM BTL TOPICAL SCH ×2 (07:46→21:12)
[2017-12-17] MEDS: LANSOPRAZOLE SOLUTAB 30 MG TAB G-TUBE SCH (07:46)
[2017-12-17 07:49] VITALS: BP 115/67; PULSE 90; RESP 14; TEMP 99.1; O2SAT 98
--- NOTE | 2017-12-17 09:23 | HHI.PR ---
Subjective Remarks Nods yes/no to questions. No chest pain or sob. No fever or chills. No n/v/d/c. Objective Vitals Vital Signs Date Time Temp Pulse Resp B/P (MAP) Pulse Ox O2 Delivery O2 Flow Rate FiO2 12/17/17 07:49 99.1 90 14 115/67 (83) 98 12/17/17 04:00 99.3 75 20 147/73 (97) 97 12/16/17 23:48 97.9 70 20 115/69 (84) 97 12/16/17 20:13 98.2 84 20 121/82 (95) 99 I/O 12/16/17 12/16/17 12/16/17 12/17/17 12/17/17 12/17/17 07:00 15:00 23:00 07:00 15:00 23:00 Intake Total 1180 ml 1180 ml 1180 ml Output Total 645 ml 700.0 ml 250 ml 0 ml Balance 535 ml 480.0 ml 930 ml 0 ml Intake Oral 0 ml 0 ml 0 ml Tube Feeding 480 ml 480 ml 480 ml Other 700 ml 700 ml 700 ml Output Urine Total 525 ml 700 ml 250 ml Tube Feeding Residual Discard 0 ml 0 ml Drainage Total 120 ml 0 ml # Bowel Movements 1 2 3 Result Diagram: 12/14/1715 12/14/1715 Imaging Last Impressions Abdomen X-Ray 12/13/17 0000 Signed Impressions: Service Date/Time: Wednesday, December 13, 2017 14:17 - CONCLUSION: PEG tube in stomach.. Harry Dumas MD FACR Chest X-Ray 12/11/17 0000 Signed Impressions: Service Date/Time: Monday, December 11, 2017 11:21 - CONCLUSION: Minimal patchiness within the right lung base. Stable cardiomegaly. Degenerative changes and scoliosis of the thoracic spine. Denny Hart MD Upper Extremity Ultrasound 11/06/17 0000 Signed Impressions: Service Date/Time: Monday, November 06, 2017 14:17 - CONCLUSION: Normal examination. K. Byron Perez MD Pelvis CT 10/13/17 0000 Signed Impressions: Service Date/Time: Friday, October 13, 2017 12:02 - CONCLUSION: 1. Decubitus ulcer with small abscess in the right posterior perineal region measuring 3.1 x 4.6 cm. There is also a small abscess posterior and to the left of the rectum measuring 3.2 x 2.3 cm. Jann Weber MD Head CT 04/25/17 0000 Signed Impressions: Service Date/Time: Tuesday, April 25, 2017 18:02 - CONCLUSION: 1. Evolving left thalamic hematoma. No new hemorrhage. Adi Quarles MD Neck CTA 04/10/17 0000 Signed Impressions: Service Date/Time: Monday, April 10, 2017 22:28 - CONCLUSION: The internal carotid arteries are normal bilaterally. No significant atherosclerotic disease is noted. Eliud Du MD Head CTA 04/10/17 0000 Signed Impressions: Service Date/Time: Monday, April 10, 2017 22:50 - CONCLUSION: Mild dilatation of the basilar tip without discrete aneurysm. Some narrowing of the left middle cerebral branch after the bifurcation. Prominent left thalamic hemorrhage. Eliud Du MD Objective Remarks GENERAL: Patient lying in bed, appears comfortable. Nods yes/no to questions. SKIN: Pressure ulcers, Coccyx with wound vac. HEAD: Normocephalic. EYES: No scleral icterus. No injection or drainage. NECK: Supple, trachea midline. No JVD. CARDIOVASCULAR: Regular rate and rhythm without murmurs, gallops, or rubs. RESPIRATORY: Breath sounds equal bilaterally. No accessory muscle use. GASTROINTESTINAL: Abdomen soft, non-tender, nondistended. PEG tube in place without leakage. MUSCULOSKELETAL: No cyanosis, or edema. BACK: Nontender without obvious deformity. No CVA tenderness. Procedures Peg Tube placed 05/08/17 (Dr. De Los Santos) Date of Insertion: Nov 08, 2017 A/P Problem List: (1) Major neurocognitive disorder ICD Code: F03.90 - Unspecified dementia without behavioral disturbance (2) Hemiparesis ICD Code: G81.90 - Hemiplegia, unspecified affecting unspecified side Status: Acute (3) Intracranial hemorrhage ICD Code: I62.9 - Nontraumatic intracranial hemorrhage, unspecified Status: Chronic (4) Aphasia ICD Code: R47.01 - Aphasia Assessment and Plan Status post hemorrhagic CVA Continue PT, OT, and ST Patient was homeless prior to admit Poor access for inpatient rehabilitation Family desires aggressive measures for therapy and placement Independent funding unavailable for placement Long-term prognosis is poor No significant capacity for regaining full functionality Palliative care following UTI low-grade fevers Replace Cruz at this time Continue Rocephin 1 g IV daily Urine cultures pending. Currently growing gram-negative rods Repeat chest x-ray Dysphagia Related to intracranial bleed history Status post PEG placement on 05/09/17 Continue tube feeding Hypertension emergency Follow blood pressures. Well-controlled at this time Continue the following blood pressure meds: Nifedipine 40 mg every 6 hours Lisinopril 10 mg twice daily Apresoline 50 mg every 6 hours Catapres TTS 3 patch Metoprolol 100 mg twice daily HCTZ 25 mg daily Apresoline, clonidine, Vasotec as needed Hyperglycemia Glucerna for tube feeds Follow blood sugars intermittently Xeroderma on bilateral feet Lac-Hydrin 12% Lotion continued. Coccyx pressure wound, wound vac in place. Wound care following. DVT Prophylaxis: SCDs given history of recent intracranial hemorrhage Discharge Planning Chief Radiation Therapist working on Discharge not yet placement. Gina Delatorre MD Dec 17, 2017 09:23
[2017-12-17] MEDS: NIFEdipine 10 MG CAP SCH (18:22)
[2017-12-17 19:15] VITALS: BP 93/60; PULSE 76; RESP 16; TEMP 100.7; O2SAT 98
[2017-12-18] MEDS: NIFEdipine 10 MG CAP SCH ×5 (00:16→23:56)
[2017-12-18] MEDS: FREE WATER G-TUBE SCH ×5 (00:16→23:56)
[2017-12-18] MEDS: hydrALAZINE HCL 100 MG TAB PEG SCH ×3 (05:31→22:00)
[2017-12-18 07:15] VITALS: BP 104/74; PULSE 72; RESP 16; TEMP 98.3; O2SAT 98
[2017-12-18] MEDS: HYDROCHLOROTHIAZIDE 25 MG TAB PO SCH (08:37)
[2017-12-18] MEDS: cefTRIAXone INJ 1,000 MG in SODIUM CHLORIDE 0.9% INJ 100 ML IV SCH (08:37)
[2017-12-18] MEDS: LACTIC ACID (AMMONIUM LACTATE) 12% LOTION 225 GM BTL TOPICAL SCH ×2 (08:37→20:43)
[2017-12-18] MEDS: LANSOPRAZOLE SOLUTAB 30 MG TAB G-TUBE SCH (08:37)
[2017-12-18] MEDS: METOPROLOL TARTRATE 25 MG TAB PEG SCH ×2 (08:37→20:43)
--- NOTE | 2017-12-18 10:01 | HHI.PR ---
Subjective Remarks The patient. She appears not acute distress. No events overnight. Not variable per nurse she is noted talking at times. She is nodding to questions with yes or no. He denies any pain at this time. No fever chills Objective Vitals Vital Signs Date Time Temp Pulse Resp B/P (MAP) Pulse Ox O2 Delivery O2 Flow Rate FiO2 12/18/17 07:15 98.3 72 16 104/74 (84) 98 12/17/17 19:15 100.7 76 16 93/60 (71) 98 I/O 12/17/17 12/17/17 12/17/17 12/18/17 12/18/17 12/18/17 07:00 15:00 23:00 07:00 15:00 23:00 Intake Total 1180 ml 880 ml 840 ml Output Total 250 ml 0 ml 450.0 ml 450 ml Balance 930 ml 0 ml 430.0 ml 390 ml Intake Oral 0 ml Tube Feeding 480 ml 480 ml 480 ml Tube Irrigant 60 ml Other 700 ml 400 ml 300 ml Output Urine Total 250 ml 450 ml 450 ml Tube Feeding Residual Discard 0 ml 0 ml Drainage Total 0 ml # Bowel Movements 3 1 0 Result Diagram: 12/14/1715 12/14/1715 Objective Remarks GENERAL: Patient lying in bed, appears comfortable. Nods yes/no to questions. SKIN: Pressure ulcers, Coccyx with wound vac. HEAD: Normocephalic. EYES: No scleral icterus. No injection or drainage. NECK: Supple, trachea midline. No JVD. CARDIOVASCULAR: Regular rate and rhythm without murmurs, gallops, or rubs. RESPIRATORY: Breath sounds equal bilaterally. No accessory muscle use. GASTROINTESTINAL: Abdomen soft, non-tender, nondistended. PEG tube in place without leakage. MUSCULOSKELETAL: No cyanosis, or edema. BACK: Nontender without obvious deformity. No CVA tenderness. Procedures Peg Tube placed 05/08/17 (Dr. De Los Santos) Date of Insertion: Nov 08, 2017 A/P Problem List: (1) Major neurocognitive disorder ICD Code: F03.90 - Unspecified dementia without behavioral disturbance (2) Hemiparesis ICD Code: G81.90 - Hemiplegia, unspecified affecting unspecified side Status: Acute (3) Intracranial hemorrhage ICD Code: I62.9 - Nontraumatic intracranial hemorrhage, unspecified Status: Chronic (4) Aphasia ICD Code: R47.01 - Aphasia Assessment and Plan Status post hemorrhagic CVA Continue PT, OT, and ST Patient was homeless prior to admit Poor access for inpatient rehabilitation Family desires aggressive measures for therapy and placement Independent funding unavailable for placement Long-term prognosis is poor No significant capacity for regaining full functionality Palliative care following UTI low-grade fevers Replace Cruz at this time Continue Rocephin 1 g IV daily Urine cultures pending. Currently growing gram-negative rods Repeat chest x-ray Dysphagia Related to intracranial bleed history Status post PEG placement on 05/09/17 Continue tube feeding Hypertension emergency Follow blood pressures. Well-controlled at this time Continue the following blood pressure meds: Nifedipine 40 mg every 6 hours Lisinopril 10 mg twice daily Apresoline 50 mg every 6 hours Catapres TTS 3 patch Metoprolol 100 mg twice daily HCTZ 25 mg daily Apresoline, clonidine, Vasotec as needed Hyperglycemia Glucerna for tube feeds Follow blood sugars intermittently Xeroderma on bilateral feet Lac-Hydrin 12% Lotion continued. Coccyx pressure wound, wound vac in place. Wound care following. DVT Prophylaxis: SCDs given history of recent intracranial hemorrhage Discharge Planning Coffee Machine Technician working on Discharge not yet placement. Gina Delatorre MD Dec 18, 2017 10:01
[2017-12-18 13:43] VITALS: BP 124/86; PULSE 88
[2017-12-18 16:56] VITALS: BP 149/105
[2017-12-18 19:15] VITALS: BP 106/69; PULSE 121; RESP 16; TEMP 99; O2SAT 97
[2017-12-19] MEDS: NIFEdipine 10 MG CAP SCH ×3 (05:57→17:22)
[2017-12-19] MEDS: hydrALAZINE HCL 100 MG TAB PEG SCH ×3 (05:57→20:50)
[2017-12-19] MEDS: FREE WATER G-TUBE SCH ×3 (06:00→17:10)
--- NOTE | 2017-12-19 07:37 | HHI.PR ---
Subjective Remarks The patient appears in not acute distress. No events overnight. Vital signs are stable. No nausea or vomiting no diarrhea or constipation. No chest pain or shortness of breath. She is satting well on room air. Patient answers questions by nodding yes/no. Objective Vitals Vital Signs Date Time Temp Pulse Resp B/P (MAP) Pulse Ox O2 Delivery O2 Flow Rate FiO2 12/18/17 19:15 99.0 121 16 106/69 (81) 97 12/18/17 16:56 149/105 (120) 12/18/17 13:43 88 124/86 (99) I/O 12/18/17 12/18/17 12/18/17 12/19/17 12/19/17 12/19/17 07:00 15:00 23:00 07:00 15:00 23:00 Intake Total 840 ml 100 ml 780 ml 820 ml Output Total 450 ml 300 ml 900 ml 450 ml Balance 390 ml -200 ml -120 ml 370 ml IV Total 100 ml Tube Feeding 480 ml 480 ml 440 ml Tube Irrigant 60 ml 80 ml Other 300 ml 300 ml 300 ml Output Urine Total 450 ml 900 ml 450 ml Drainage Total 300 ml # Bowel Movements 0 1 0 Imaging Last Impressions Abdomen X-Ray 12/13/17 0000 Signed Impressions: Service Date/Time: Wednesday, December 13, 2017 14:17 - CONCLUSION: PEG tube in stomach.. Harry Dumas MD FACR Chest X-Ray 12/11/17 0000 Signed Impressions: Service Date/Time: Monday, December 11, 2017 11:21 - CONCLUSION: Minimal patchiness within the right lung base. Stable cardiomegaly. Degenerative changes and scoliosis of the thoracic spine. Denny Hart MD Upper Extremity Ultrasound 11/06/17 0000 Signed Impressions: Service Date/Time: Monday, November 06, 2017 14:17 - CONCLUSION: Normal examination. K. Byron Perez MD Pelvis CT 10/13/17 0000 Signed Impressions: Service Date/Time: Friday, October 13, 2017 12:02 - CONCLUSION: 1. Decubitus ulcer with small abscess in the right posterior perineal region measuring 3.1 x 4.6 cm. There is also a small abscess posterior and to the left of the rectum measuring 3.2 x 2.3 cm. Jann Weber MD Head CT 04/25/17 0000 Signed Impressions: Service Date/Time: Tuesday, April 25, 2017 18:02 - CONCLUSION: 1. Evolving left thalamic hematoma. No new hemorrhage. Adi Quarles MD Neck CTA 04/10/17 0000 Signed Impressions: Service Date/Time: Monday, April 10, 2017 22:28 - CONCLUSION: The internal carotid arteries are normal bilaterally. No significant atherosclerotic disease is noted. Eliud Du MD Head CTA 04/10/17 0000 Signed Impressions: Service Date/Time: Monday, April 10, 2017 22:50 - CONCLUSION: Mild dilatation of the basilar tip without discrete aneurysm. Some narrowing of the left middle cerebral branch after the bifurcation. Prominent left thalamic hemorrhage. Eliud Du MD Objective Remarks GENERAL: Patient lying in bed, appears comfortable. Nods yes/no to questions. SKIN: Pressure ulcers, Coccyx with wound vac. HEAD: Normocephalic. EYES: No scleral icterus. No injection or drainage. NECK: Supple, trachea midline. No JVD. CARDIOVASCULAR: Regular rate and rhythm without murmurs, gallops, or rubs. RESPIRATORY: Breath sounds equal bilaterally. No accessory muscle use. GASTROINTESTINAL: Abdomen soft, non-tender, nondistended. PEG tube in place without leakage. MUSCULOSKELETAL: No cyanosis, or edema. BACK: Nontender without obvious deformity. No CVA tenderness. Procedures Peg Tube placed 05/08/17 (Dr. De Los Santos) Date of Insertion: Nov 08, 2017 A/P Problem List: (1) Major neurocognitive disorder ICD Code: F03.90 - Unspecified dementia without behavioral disturbance (2) Hemiparesis ICD Code: G81.90 - Hemiplegia, unspecified affecting unspecified side Status: Acute (3) Intracranial hemorrhage ICD Code: I62.9 - Nontraumatic intracranial hemorrhage, unspecified Status: Chronic (4) Aphasia ICD Code: R47.01 - Aphasia Assessment and Plan Status post hemorrhagic CVA Continue PT, OT, and ST Patient was homeless prior to admit Poor access for inpatient rehabilitation Family desires aggressive measures for therapy and placement Independent funding unavailable for placement Long-term prognosis is poor No significant capacity for regaining full functionality Palliative care following UTI low-grade fevers Replace Cruz at this time Continue Rocephin 1 g IV daily Urine cultures pending. Currently growing gram-negative rods Repeat chest x-ray Dysphagia Related to intracranial bleed history Status post PEG placement on 05/09/17 Continue tube feeding Hypertension emergency Follow blood pressures. Well-controlled at this time Continue the following blood pressure meds: Nifedipine 40 mg every 6 hours Lisinopril 10 mg twice daily Apresoline 50 mg every 6 hours Catapres TTS 3 patch Metoprolol 100 mg twice daily HCTZ 25 mg daily Apresoline, clonidine, Vasotec as needed Hyperglycemia Glucerna for tube feeds Follow blood sugars intermittently Xeroderma on bilateral feet Lac-Hydrin 12% Lotion continued. Coccyx pressure wound, wound vac in place. Wound care following. DVT Prophylaxis: SCDs given history of recent intracranial hemorrhage Discharge Planning Field Map Editor working on Discharge not yet placement. Gina Delatorre MD Dec 19, 2017 07:37
[2017-12-19 08:00] VITALS: BP 118/79; PULSE 72; RESP 14; TEMP 98.4; O2SAT 97
[2017-12-19] MEDS: LACTIC ACID (AMMONIUM LACTATE) 12% LOTION 225 GM BTL TOPICAL SCH ×2 (09:00→20:50)
[2017-12-19] MEDS: HYDROCHLOROTHIAZIDE 25 MG TAB PO SCH (09:30)
[2017-12-19] MEDS: METOPROLOL TARTRATE 25 MG TAB PEG SCH ×2 (09:30→20:50)
[2017-12-19] MEDS: LANSOPRAZOLE SOLUTAB 30 MG TAB G-TUBE SCH (09:30)
[2017-12-19] MEDS: cefTRIAXone INJ 1,000 MG in SODIUM CHLORIDE 0.9% INJ 100 ML IV SCH (09:30)
[2017-12-19] MEDS: REMOVE OLD CATAPRES (CLONIDINE) PATCH T-DERMAL SCH (15:00)
[2017-12-19] MEDS: cloNIDine HCL 0.3 MG/24 HR PATCH T-DERMAL SCH (17:32)
[2017-12-19 20:00] VITALS: BP 106/72; PULSE 100; RESP 20; TEMP 98.8; O2SAT 95
[2017-12-20] MEDS: NIFEdipine 10 MG CAP SCH ×4 (00:01→17:53)
[2017-12-20] MEDS: FREE WATER G-TUBE SCH ×4 (06:00→17:53)
[2017-12-20] MEDS: hydrALAZINE HCL 100 MG TAB PEG SCH ×3 (06:05→21:04)
[2017-12-20] MEDS: LANSOPRAZOLE SOLUTAB 30 MG TAB G-TUBE SCH (08:46)
[2017-12-20] MEDS: METOPROLOL TARTRATE 25 MG TAB PEG SCH ×2 (08:46→21:00)
[2017-12-20] MEDS: cefTRIAXone INJ 1,000 MG in SODIUM CHLORIDE 0.9% INJ 100 ML IV SCH (08:50)
[2017-12-20] MEDS: LACTIC ACID (AMMONIUM LACTATE) 12% LOTION 225 GM BTL TOPICAL SCH ×2 (08:52→21:00)
[2017-12-20] MEDS: HYDROCHLOROTHIAZIDE 25 MG TAB PO SCH (09:00)
--- NOTE | 2017-12-20 10:38 | HHI.PR ---
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 No overnight events per nursing. Tube feeds at 40 cc per hour. Objective Vitals Vital Signs Date Time Temp Pulse Resp B/P (MAP) Pulse Ox O2 Delivery O2 Flow Rate FiO2 12/19/17 20:00 98.8 100 20 106/72 (83) 95 I/O 12/19/17 12/19/17 12/19/17 12/20/17 12/20/17 12/20/17 07:00 15:00 23:00 07:00 15:00 23:00 Intake Total 820 ml 980 ml 840 ml Output Total 450 ml 750 ml 450 ml Balance 370 ml 230 ml 390 ml IV Total 100 ml Tube Feeding 440 ml 480 ml 440 ml Tube Irrigant 80 ml 300 ml Other 300 ml 400 ml 100 ml Output Urine Total 450 ml 750 ml 450 ml # Bowel Movements 0 1 Objective Remarks GENERAL: Patient lying in bed, appears comfortable. Nods yes/no to questions. EYES: No scleral icterus. No injection or drainage. NECK: Supple, trachea midline. No JVD. CARDIOVASCULAR: Regular rate and rhythm without murmurs, gallops, or rubs. RESPIRATORY: Breath sounds equal bilaterally. No accessory muscle use. GASTROINTESTINAL: Abdomen soft, non-tender, nondistended. Cruz catheter with clear yellow urine. MUSCULOSKELETAL: No cyanosis, or edema. Follows some commands, good handgrip, close her eyes on command. Procedures Peg Tube placed 05/08/17 (Dr. De Los Santos) Date of Insertion: Nov 08, 2017 A/P Problem List: (1) Major neurocognitive disorder ICD Code: F03.90 - Unspecified dementia without behavioral disturbance (2) Hemiparesis ICD Code: G81.90 - Hemiplegia, unspecified affecting unspecified side Status: Acute (3) Intracranial hemorrhage ICD Code: I62.9 - Nontraumatic intracranial hemorrhage, unspecified Status: Chronic (4) Aphasia ICD Code: R47.01 - Aphasia Assessment and Plan Status post hemorrhagic CVA Continue PT, OT, and ST Patient was homeless prior to admit Poor access for inpatient rehabilitation Family desires aggressive measures for therapy and placement Independent funding unavailable for placement Long-term prognosis is poor No significant capacity for regaining full functionality Palliative care following UTI low-grade fevers Replace Cruz at this time Continue Rocephin 1 g IV daily Urine cultures pending. Currently growing gram-negative rods Repeat chest x-ray Dysphagia Related to intracranial bleed history Status post PEG placement on 05/09/17 Continue tube feeding Hypertension emergency Follow blood pressures. Well-controlled at this time Continue the following blood pressure meds: Nifedipine 40 mg every 6 hours Lisinopril 10 mg twice daily Apresoline 50 mg every 6 hours Catapres TTS 3 patch Metoprolol 100 mg twice daily HCTZ 25 mg daily Apresoline, clonidine, Vasotec as needed Hyperglycemia Glucerna for tube feeds Follow blood sugars intermittently Xeroderma on bilateral feet Lac-Hydrin 12% Lotion continued. Coccyx pressure wound, wound vac in place. Wound care following. . Nutrition: Obtain accurate weight, Tube feeds at 40 cc per hour, will reconsult dietary. Discussed with nursing. DVT Prophylaxis: SCDs given history of recent intracranial hemorrhage Nolvia Salomon MD Dec 20, 2017 10:38
[2017-12-20 11:00] VITALS: BP 102/64; PULSE 98; RESP 18; TEMP 98.2; O2SAT 96
[2017-12-20 20:00] VITALS: BP 129/83; PULSE 79; RESP 18; TEMP 98; O2SAT 97
[2017-12-21] MEDS: NIFEdipine 10 MG CAP SCH ×4 (00:28→17:33)
[2017-12-21] MEDS: FREE WATER G-TUBE SCH ×4 (06:00→18:00)
[2017-12-21] MEDS: hydrALAZINE HCL 100 MG TAB PEG SCH ×3 (06:22→21:19)
[2017-12-21 09:00] VITALS: BP 114/74; PULSE 78; RESP 18; TEMP 99; O2SAT 96
[2017-12-21] MEDS: LACTIC ACID (AMMONIUM LACTATE) 12% LOTION 225 GM BTL TOPICAL SCH ×2 (09:00→21:21)
[2017-12-21] MEDS: LANSOPRAZOLE SOLUTAB 30 MG TAB G-TUBE SCH (09:40)
[2017-12-21] MEDS: METOPROLOL TARTRATE 25 MG TAB PEG SCH ×2 (09:40→21:18)
[2017-12-21] MEDS: HYDROCHLOROTHIAZIDE 25 MG TAB PO SCH (09:41)
[2017-12-21] MEDS: cefTRIAXone INJ 1,000 MG in SODIUM CHLORIDE 0.9% INJ 100 ML IV SCH (10:15)
[2017-12-21 12:12] VITALS: BP 117/79; PULSE 98; RESP 18; TEMP 98.2; O2SAT 96
--- NOTE | 2017-12-21 16:00 | HHI.PR ---
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 No overnight events per nursing. Tube feeds at 40 cc per hour. 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, FLACCID ON RIGHT AND BL LE AT THIS MOMENT WITH BL FOOT DROP Objective Vitals Vital Signs Date Time Temp Pulse Resp B/P (MAP) Pulse Ox O2 Delivery O2 Flow Rate FiO2 12/21/17 12:12 98.2 98 18 117/79 (92) 96 12/21/17 09:00 99.0 78 18 114/74 (87) 96 12/20/17 20:00 98.0 79 18 129/83 (98) 97 I/O 12/20/17 12/20/17 12/20/17 12/21/17 12/21/17 12/21/17 07:00 15:00 23:00 07:00 15:00 23:00 Intake Total 840 ml 100 ml 690 ml Output Total 450 ml 300 ml 650 ml 0 ml Balance 390 ml 100 ml 390 ml -650 ml 0 ml IV Total 100 ml Tube Feeding 440 ml 440 ml Tube Irrigant 300 ml Other 100 ml 250 ml Output Urine Total 450 ml 300 ml 650 ml Tube Feeding Residual Discard 0 ml # Bowel Movements 2 Imaging Last Impressions Abdomen X-Ray 12/13/17 0000 Signed Impressions: Service Date/Time: Wednesday, December 13, 2017 14:17 - CONCLUSION: PEG tube in stomach.. Harry Dumas MD FACR Chest X-Ray 12/11/17 0000 Signed Impressions: Service Date/Time: Monday, December 11, 2017 11:21 - CONCLUSION: Minimal patchiness within the right lung base. Stable cardiomegaly. Degenerative changes and scoliosis of the thoracic spine. Denny Hart MD Upper Extremity Ultrasound 11/06/17 0000 Signed Impressions: Service Date/Time: Monday, November 06, 2017 14:17 - CONCLUSION: Normal examination. Kelby Perez MD Pelvis CT 10/13/17 0000 Signed Impressions: Service Date/Time: Friday, October 13, 2017 12:02 - CONCLUSION: 1. Decubitus ulcer with small abscess in the right posterior perineal region measuring 3.1 x 4.6 cm. There is also a small abscess posterior and to the left of the rectum measuring 3.2 x 2.3 cm. Jann Weber MD Head CT 04/25/17 0000 Signed Impressions: Service Date/Time: Tuesday, April 25, 2017 18:02 - CONCLUSION: 1. Evolving left thalamic hematoma. No new hemorrhage. Adi Quarles MD Neck CTA 04/10/17 0000 Signed Impressions: Service Date/Time: Monday, April 10, 2017 22:28 - CONCLUSION: The internal carotid arteries are normal bilaterally. No significant atherosclerotic disease is noted. Eliud Du MD Head CTA 04/10/17 0000 Signed Impressions: Service Date/Time: Monday, April 10, 2017 22:50 - CONCLUSION: Mild dilatation of the basilar tip without discrete aneurysm. Some narrowing of the left middle cerebral branch after the bifurcation. Prominent left thalamic hemorrhage. Eliud Du MD Objective Remarks GENERAL: Patient lying in bed, appears comfortable Misael no very soft-spoken can be heard with my stethoscope only SKIN: Warm and dry. HEAD: Atraumatic. Normocephalic. EYES: Pupils equal and round. No scleral icterus. No injection or drainage. ENT: No nasal bleeding or discharge. Mucous membranes pink and moist. NECK: Trachea midline. No JVD. Supple CARDIOVASCULAR: Regular rate and rhythm. S1 and S2 no S3 or S4 RESPIRATORY: No accessory muscle use. Clear to auscultation. Breath sounds equal bilaterally. GASTROINTESTINAL: Abdomen soft, non-tender, nondistended. Hepatic and splenic margins not palpable. PEG tube in place--Cruz catheter in place MUSCULOSKELETAL: Extremities without clubbing, cyanosis, or edema. No obvious deformities. 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 No obvious cranial nerve deficits. Normal speech but very very soft. PSYCHIATRIC: Appropriate mood and affect; insight and judgment ABnormal. Procedures Peg Tube placed 05/08/17 (Dr. De Los Santos) Medications and IVs Current Medications Sodium Chloride (NS Flush) 2 ml UNSCH PRN IVF FLUSH AFTER USING IV ACCESS; Start 04/10/17 at 20:00; Stop 04/10/17 at 22:12; Status DC Nicardipine HCl 25 mg/Sodium Chloride 260 ml @ 0 mls/hr TITRATE IV Last administered on 04/10/17 21:34; Start 04/10/17 at 20:00; Stop 04/10/17 at 22:12; Status DC Sodium Chloride 1,000 ml @ 84 mls/hr [id number] IV Last administered on 04/11/17 07:47; Start 04/10/17 at 22:00; Stop 04/11/17 at 15:41; Status DC Sodium Chloride (NS Flush) 2 ml UNSCH PRN .XX FLUSH AFTER USING IV ACCESS Last administered on 05/01/17 04:49; Start 04/10/17 at 22:00; Stop 05/26/17 at 10:07 ; Status DC Sodium Chloride (NS Flush) 2 ml BID .XX Last administered on 05/26/17 09:54; Start 04/11/17 at 09:00; Stop 05/26/17 at 10:07; Status DC Acetaminophen (Tylenol) 650 mg Q6H PRN PO PAIN 1-10 AND/OR FEVER >101F Last administered on 04/26/17 13:46; Start 04/10/17 at 22:00; Stop 06/16/17 at 10:03 ; Status DC Morphine Sulfate (Morphine Inj) 2 mg Q2H PRN IV PAIN SCALE 6 TO 10 Last administered on 05/25/17 21:09; Start 04/10/17 at 22:00; Stop 05/26/17 at 10:07 ; Status DC Famotidine (Pepcid Inj) 20 mg Q12HR IV PUSH Last administered on 05/04/17 08: 37; Start 04/11/17 at 09:00; Stop 05/04/17 at 14:13; Status DC Ondansetron HCl (Zofran Inj) 4 mg Q6H PRN IV NAUSEA OR VOMITING; Start 04/10/17 at 22:00; Stop 05/26/17 at 10:07; Status DC Metoclopramide HCl (Reglan Inj) 10 mg Q6H PRN IV NAUSEA OR VOMITING; Start 04/10 at 22:00; Stop 05/26/17 at 10:07; Status DC Prochlorperazine (Compazine Supp) 25 mg Q12H PRN RECTAL NAUSEA OR VOMITING; Start 04/10/17 at 22:00; Stop 05/26/17 at 10:07; Status DC Albuterol/ Ipratropium (Duoneb Neb) 1 ampule Q2HR NEB PRN INH WHEEZING; Start 04/10/17 at 22:00; Stop 05/26/17 at 10:07; Status DC Miscellaneous Information 1 [id number] XX Last administered on 04/10/17 22:00; Start 04/10/17 at 22:00; Stop 05/26/17 at 10:07; Status DC Chlorhexidine Gluconate (Chlorhexidine 2% Cloth) Taper DAILY@04 TOP Last administered on 05/21/17 04:00; Start 04/11/17 at 04:00; Stop 05/26/17 at 10:07 ; Status DC Chlorhexidine Gluconate (Chlorhexidine 2% Cloth) 3 pack UNSCH PRN TOP HYGIENIC CARE; Start 04/10/17 at 22:00; Stop 05/26/17 at 10:07; Status DC Senna/Docusate Sodium (Evelyn-Colace) 1 tab BID PO Last administered on 09:20; Start 04/11/17 at 09:00; Stop 06/16/17 at 10:03; Status DC Magnesium Hydroxide (Milk Of Magnesia Liq) 30 ml Q12H PRN PO MILD - MODERATE CONSTIPATION; Start 04/10/17 at 22:00; Stop 05/26/17 at 10:07; Status DC Sennosides (Senokot) 17.2 mg Q12H PRN PO MODERATE - SEVERE CONSTIPATION Last administered on 05/08/17 21:29; Start 04/10/17 at 22:00; Stop 05/26/17 at 10:07; Status DC Bisacodyl (Dulcolax Supp) 10 mg DAILY PRN RECTAL SEVERE CONSITIPATION; Start at 22:00 Lactulose (Lactulose Liq) 30 ml DAILY PRN PO SEVERE CONSITIPATION Last administered on 04/24/17 08:44; Start 04/10/17 at 22:00; Stop 06/16/17 at 10:03 ; Status DC Nicardipine HCl 25 mg/Sodium Chloride 260 ml @ 0 mls/hr TITRATE IV Last administered on 04/14/17 04:35; Start 04/10/17 at 22:15; Stop 04/14/17 at 12:18; Status DC Iohexol (Omnipaque 350 Inj) 70 ml STK-MED ONCE IV Last administered on 22:35; Start 04/10/17 at 22:35; Stop 04/10/17 at 22:36; Status DC Labetalol HCl (Trandate Inj) 20 mg Q4H PRN IV PUSH sbp>160 Last administered on 04/17/17 02:24; Start 04/12/17 at 08:15; Stop 04/25/17 at 18:06; Status DC Hydralazine HCl (Apresoline Inj) 20 mg Q4H PRN IV PUSH sbp>150 Last administered on 05/17/17 20:39; Start 04/12/17 at 08:15; Stop 05/18/17 at 14:44 ; Status DC Amlodipine Besylate (Norvasc) 5 mg DAILY PO Last administered on 04/14/17 08:55 ; Start 04/12/17 at 09:00; Stop 04/15/17 at 06:44; Status DC Metoclopramide HCl (Reglan Inj) 5 mg Q8HR IV PUSH Last administered on 14:02; Start 04/12/17 at 16:00; Stop 05/04/17 at 14:13; Status DC Potassium Chloride 100 ml @ 50 mls/hr Q2H PRN IV For Potassium 2.8 - 3.2 mEq/L ; Start 04/13/17 at 11:45; Stop 04/25/17 at 11:32; Status DC Potassium Chloride 100 ml @ 50 mls/hr Q2H PRN IV For Potassium 2.8 - 3.2 mEq/ L Last administered on 04/14/17 13:06; Start 04/13/17 at 11:45; Stop 04/25/17 at 11:32; Status DC Potassium Bicarb/ Potassium Chloride (K-Lyte Cl Eff) 50 meq UNSCH PRN PO For Potassium 3.3 - 3.5 mEq/L Last administered on 04/19/17 14:03; Start 04/13/17 at 11:45; Stop 04/25/17 at 11:32; Status DC Potassium Chloride 100 ml @ 25 mls/hr UNSCH PRN IV For Potassium 3.3 - 3.5 mEq /L; Start 04/13/17 at 11:45; Stop 04/25/17 at 11:32; Status DC Potassium Chloride 100 ml @ 50 mls/hr Q2H PRN IV For Potassium 3.3 - 3.5 mEq/L ; Start 04/13/17 at 11:45; Stop 04/25/17 at 11:32; Status DC Magnesium Sulfate 4 gm/Sodium Chloride 100 ml @ 50 mls/hr UNSCH PRN IV For Magnesium 0.9 - 1.1 mg/dL; Start 04/13/17 at 11:45; Stop 04/25/17 at 11:32; Status DC Magnesium Oxide (Mag-Ox) 800 mg UNSCH PRN PO For Magnesium 1.2 - 1.6 mg/dL; Start 04/13/17 at 11:45; Stop 04/25/17 at 11:32; Status DC Magnesium Sulfate 2 gm/Sodium Chloride 100 ml @ 50 mls/hr UNSCH PRN IV For Magnesium 1.2 - 1.6 mg/dL; Start 04/13/17 at 11:45; Stop 04/25/17 at 11:32; Status DC Potassium Phosphate (K-Phos) 2,000 mg Q4H PRN PO For Phosphorus < 2.5 mg/dL; Start 04/13/17 at 11:45; Stop 04/25/17 at 11:32; Status DC Sodium Phosphate 30 mmol/Sodium Chloride 250 ml @ 42 mls/hr UNSCH PRN IV For Phosphorus < 2.5 mg/dL; Start 04/13/17 at 11:45; Stop 04/25/17 at 11:32; Status DC Potassium Phosphate (K-Phos) 2,000 mg UNSCH PRN PO/TUBE SEE LABEL COMMENTS; Start 04/13/17 at 11:45; Stop 04/25/17 at 11:32; Status DC Potassium Phosphate 30 mmol/ Sodium Chloride 260 ml @ 42 mls/hr UNSCH PRN IV SEE LABEL COMMENTS; Start 04/13/17 at 11:45; Stop 04/25/17 at 11:32; Status DC Metoprolol Tartrate (Lopressor) 25 mg Q8HR PO Last administered on 04/14/17t 05: 40; Start 04/13/17 at 14:00; Stop 04/14/17 at 12:18; Status DC Hydralazine HCl (Apresoline) 50 mg Q8H PO Last administered on 04/14/17 03:23; Start 04/13/17 at 12:00; Stop 04/14/17 at 09:23; Status DC Hydralazine HCl (Apresoline) 100 mg Q8H PO Last administered on 04/14/17 11:25 ; Start 04/14/17 at 12:00; Stop 04/14/17 at 19:47; Status DC Metoprolol Tartrate (Lopressor) 50 mg Q8HR PO Last administered on 04/24/17 05 :27; Start 04/14/17 at 14:00; Stop 04/24/17 at 09:28; Status DC Hydralazine HCl (Apresoline Inj) 20 mg ONCE ONCE IV PUSH Last administered on 04/14/17 17:42; Start 04/14/17 at 17:15; Stop 04/14/17 at 17:32; Status DC Labetalol HCl (Trandate Inj) 10 mg ONCE ONCE IV PUSH Last administered on 17:42; Start 04/14/17 at 17:15; Stop 04/14/17 at 17:32; Status DC Clonidine (Catapres) 0.3 mg ONCE ONCE PO Last administered on 04/14/17 17:50; Start 04/14/17 at 17:15; Stop 04/14/17 at 17:32; Status DC Clonidine (Catapres) 0.2 mg Q8HR PO ; Start 04/14/17 at 22:00; Stop 04/14/17 at 22 :00; Status DC Clonidine (Catapres) 0.3 mg Q8HR PO Last administered on 04/26/17 05:55; Start 04/14/17 at 22:00; Stop 04/26/17 at 14:39; Status DC Hydralazine HCl (Apresoline) 100 mg Q6HR PO Last administered on 04/15/17 10: 39; Start 04/15/17 at 00:00; Stop 04/15/17 at 13:10; Status DC Amlodipine Besylate (Norvasc) 10 mg DAILY PO Last administered on 06/12/17 07: 39; Start 04/14/17 at 19:45; Stop 06/12/17 at 07:56; Status DC Enalaprilat (Vasotec Inj) 1.25 mg Q6H PRN IV PUSH SBP>160, DBP>90 Last administered on 05/13/17 01:22; Start 04/15/17 at 01:15; Stop 05/26/17 at 10:07 ; Status DC Nitroglycerin (Nitroglycerin 2% Oint) 2 inch Q6HR PRN TOPICAL SBP>160, DBP>90 Last administered on 04/16/17 12:34; Start 04/15/17 at 06:00; Stop 05/26/17 at 10:07; Status DC Hydralazine HCl (Apresoline) 100 mg Q8HR PO Last administered on 04/26/17 05: 55; Start 04/15/17 at 14:00; Stop 04/26/17 at 14:39; Status DC Lisinopril (Prinivil) 20 mg DAILY PO Last administered on 04/16/17 08:32; Start 04/15/17 at 13:30; Stop 04/16/17 at 14:58; Status DC Lisinopril (Prinivil) 20 mg ONCE ONCE PO Last administered on 04/16/17 15:27 ; Start 04/16/17 at 15:00; Stop 04/16/17 at 15:03; Status DC Lisinopril (Prinivil) 40 mg BID PO Last administered on 04/20/17 09:09; Start 04/16/17 at 21:00; Stop 04/20/17 at 16:42; Status DC Hydrochlorothiazide (Hydrodiuril) 25 mg DAILY PO Last administered on 08:59; Start 04/17/17 at 17:45; Stop 04/18/17 at 16:28; Status DC Hydrochlorothiazide (Hydrodiuril) 25 mg ONCE ONCE PO Last administered on 04/18 16:51; Start 04/18/17 at 16:30; Stop 04/18/17 at 16:32; Status DC Hydrochlorothiazide (Hydrodiuril) 50 mg DAILY PO Last administered on 08:50; Start 04/19/17 at 09:00; Stop 04/25/17 at 18:06; Status DC Lisinopril (Prinivil) 30 mg BID PO Last administered on 04/25/17 08:50; Start 04/20/17 at 21:00; Stop 04/25/17 at 18:06; Status DC Miscellaneous (Pill Splitter) 1 ea UNSCH PRN OTHER SEE LABEL COMMENTS; Start at 17:15; Stop 10/18/17 at 09:37; Status DC Ceftriaxone Sodium 1000 mg/ Sodium Chloride 100 ml @ 200 mls/hr HS IV Last administered on 04/29/17 22:04; Start 04/22/17 at 21:30; Stop 04/30/17 at 12:37 ; Status DC Metoprolol Tartrate (Lopressor) 50 mg BID PO Last administered on 05/26/17 09: 54; Start 04/24/17 at 21:00; Stop 05/26/17 at 10:12; Status DC Lisinopril (Prinivil) 20 mg DAILY PO Last administered on 04/27/17 09:52; Start 04/26/17 at 09:00; Stop 04/28/17 at 00:21; Status DC Clonidine (Catapres) 0.2 mg Q8HR PO Last administered on 05/26/17 05:57; Start 04/26/17 at 22:00; Stop 05/26/17 at 10:12; Status DC Hydralazine HCl (Apresoline) 50 mg Q8HR PO Last administered on 04/27/17 12:45 ; Start 04/26/17 at 22:00; Stop 04/27/17 at 15:31; Status DC Hydralazine HCl (Apresoline) 100 mg Q8HR PO Last administered on 06/10/17 06:18 ; Start 04/27/17 at 22:00; Stop 06/10/17 at 12:03; Status DC Lisinopril (Prinivil) 40 mg DAILY PO Last administered on 06/16/17 09:20; Start 04/28/17 at 09:00; Stop 06/16/17 at 10:03; Status DC Famotidine (Pepcid) 20 mg BID NG Last administered on 05/09/17 09:36; Start at 21:00; Stop 05/09/17 at 12:49; Status DC Lactic Acid (Lac-Hydrin 12% Lotion) 1 applic BID TOPICAL Last administered on 09:00; Start 05/04/17 at 14:00 Cefazolin Sodium 1000 mg/Sodium Chloride 100 ml @ 200 mls/hr GRIZZLY WORKER IV ; Start 05/06/17 at 10:30; Stop 05/09/17 at 10:29; Status DC Cefazolin Sodium (Ancef Inj) 1,000 mg STK-MED ONCE IV Last administered on 15:00; Start 05/08/17 at 15:00; Stop 05/08/17 at 15:08; Status DC Propofol (Diprivan 200 Mg/20 ml Inj) 150 mg STK-MED ONCE IV PUSH ; Start at 15:27; Stop 05/08/17 at 15:45; Status DC Lansoprazole (Prevacid Odt) 30 mg DAILY G-TUBE Last administered on 12/21/17 09:40; Start 05/10/17 at 09:00 Nystatin (Mycostatin Liq) 5 ml QID SWISH-SWAL Last administered on 05/22/17 09:36; Start 05/14/17 at 13:00; Stop 05/22/17 at 11:19; Status DC Hydralazine HCl (Apresoline) 25 mg Q4HR PRN PEG for sbp greater than 150 Last administered on 11/04/17 14:28; Start 05/18/17 at 14:45 Clonidine (Catapres) 0.1 mg Q6H PRN PO for SBP greater than 170 Last administered on 05/22/17 02:48; Start 05/21/17 at 07:30; Stop 05/26/17 at 10:12 ; Status DC Nystatin (Mycostatin Liq) 5 ml QID SWISH-SWAL Last administered on 05/28/17 09:43; Start 05/23/17 at 13:00; Stop 05/28/17 at 10:02; Status DC Ondansetron HCl (Zofran Liq) 4 mg Q6H PRN PEG NAUSEA OR VOMITING; Start at 10:00 Metoprolol Tartrate (Lopressor) 75 mg BID PO Last administered on 05/28/17 09: 43; Start 05/26/17 at 21:00; Stop 05/28/17 at 09:58; Status DC Clonidine (Catapres-Tts 0.2 Mg Patch.7d) 1 patch Q7D T-DERMAL Last administered on 06/02/17 11:27; Start 05/26/17 at 12:00; Stop 06/06/17 at 12:47 ; Status DC Miscellaneous Information 1 Q7D T-DERMAL Last administered on 06/02/17 11:28; Start 06/02/17 at 12:00; Stop 06/06/17 at 13:31; Status DC Metoprolol Tartrate (Lopressor) 100 mg BID PO Last administered on 06/16/17 09 :20; Start 05/28/17 at 21:00; Stop 06/16/17 at 10:03; Status DC Fluconazole (Diflucan) 200 mg DAILY PO Last administered on 06/03/17 08:44; Start 05/28/17 at 11:00; Stop 06/04/17 at 08:59; Status DC Levofloxacin (Levaquin Liq) 750 mg Q24H PEG ; Start 05/29/17 at 11:00; Stop at 15:05; Status DC Levofloxacin (Levaquin Liq) 750 mg DAILY@16 PEG Last administered on 16:20; Start 05/29/17 at 16:00; Stop 06/04/17 at 16:01; Status DC Sodium Chloride 500 ml @ 500 mls/hr BOLUS ONCE IV Last administered on 15:43; Start 06/01/17 at 11:30; Stop 06/01/17 at 12:29; Status DC Sodium Chloride 1,000 ml @ 100 mls/hr Q10H IV Last administered on 06/03/17 06:17; Start 06/02/17 at 11:15; Stop 06/03/17 at 10:16; Status DC Clonidine (Catapres-Tts 0.3 Mg Patch.7d) 1 patch Q7D T-DERMAL Last administered on 12/19/17 17:32; Start 06/06/17 at 15:00 Miscellaneous Information 1 Q7D T-DERMAL Last administered on 12/19/17at 15:00; Start 06/06/17 at 15:00 Hydralazine HCl (Apresoline) 100 mg Q6HR PO Last administered on 06/16/17 06: 20; Start 06/10/17 at 18:00; Stop 06/16/17 at 10:03; Status DC Nifedipine (Procardia Xl) 60 mg DAILY PO Last administered on 06/15/17 10:04; Start 06/12/17 at 09:00; Stop 06/16/17 at 10:03; Status DC Acetaminophen (Tylenol) 650 mg Q6H PRN PEG PAIN 1-10 AND/OR FEVER >101F Last administered on 10/17/17 19:29; Start 06/16/17 at 16:00; Status Future Hold Senna/Docusate Sodium (Evelyn-Colace) 1 tab BID PEG Last administered on 09:42; Start 06/16/17 at 21:00; Stop 06/28/17 at 10:38; Status DC Hydralazine HCl (Apresoline) 100 mg Q6HR PEG Last administered on 08/17/17 22 :43; Start 06/16/17 at 12:00; Stop 08/18/17 at 07:50; Status DC Lactulose (Lactulose Liq) 30 ml DAILY PRN PEG SEVERE CONSITIPATION; Start 06/16 at 10:00; Stop 08/17/17 at 08:28; Status DC Lisinopril (Prinivil) 40 mg DAILY PEG Last administered on 08/16/17 08:04; Start 06/17/17 at 09:00; Stop 08/18/17 at 07:50; Status DC Metoprolol Tartrate (Lopressor) 100 mg BID PEG Last administered on 11/21/17at 21:41; Start 06/16/17 at 21:00; Stop 11/23/17 at 11:24; Status DC Nifedipine (Procardia) 20 mg Q8HR PEG Last administered on 06/20/17 05:41; Start 06/16/17 at 14:00; Stop 06/20/17 at 14:35; Status DC Nifedipine (Procardia) 30 mg Q8HR .XX Last administered on 06/22/17 13:13; Start 06/20/17 at 22:00; Stop 06/22/17 at 13:14; Status DC Nifedipine (Procardia) 30 mg Q6HR .XX Last administered on 06/26/17 06:32; Start 06/22/17 at 18:00; Stop 06/26/17 at 11:22; Status DC Nifedipine (Procardia) 40 mg Q6HR PEG Last administered on 12/17/17at 11:55; Start 06/26/17 at 12:00; Stop 12/17/17 at 18:00; Status DC Sennosides (Senna Liq) 8.8 mg DAILY PEG Last administered on 10/17/17 10:02 ; Start 06/29/17 at 09:00; Status Future Hold Hydrochlorothiazide (Hydrodiuril) 25 mg DAILY PO Last administered on 07/07/17 08:49; Start 07/01/17 at 12:00; Stop 07/07/17 at 11:21; Status DC Hydrochlorothiazide (Hydrodiuril) 25 mg BID@18 PEG Last administered on 07/21 17:17; Start 07/07/17 at 18:00; Stop 07/28/17 at 15:04; Status DC Potassium Bicarb/ Potassium Chloride (K-Lyte Cl Eff) 25 meq DAILY PEG Last administered on 07/22/17 09:54; Start 07/07/17 at 11:30; Stop 07/28/17 at 15:04 ; Status DC Hydrochlorothiazide (Hydrodiuril) 25 mg DAILY PO Last administered on 08:04; Start 08/04/17 at 12:30; Stop 08/18/17 at 07:50; Status DC Nystatin (Mycostatin Liq) 5 ml QID OTHER Last administered on 08/21/17 17:54 ; Start 08/13/17 at 18:00; Stop 08/21/17 at 18:00; Status DC Polyethylene Glycol (Miralax) 17 gm DAILY PRN PO severe constipation Last administered on 08/30/17 23:22; Start 08/17/17 at 08:30; Stop 12/09/17 at 09: 10; Status DC Hydralazine HCl (Apresoline) 100 mg Q8HR PEG Last administered on 08/19/17 06 :38; Start 08/18/17 at 14:00; Stop 08/19/17 at 07:53; Status DC Lisinopril (Prinivil) 20 mg BID PEG ; Start 08/18/17 at 09:00; Stop 08/19/17 at 07:53; Status DC Hydralazine HCl (Apresoline) 50 mg Q6HR PEG Last administered on 12/10/17 23:28 ; Start 08/19/17 at 12:00; Stop 12/11/17 at 04:19; Status DC Lisinopril (Prinivil) 10 mg BID PEG Last administered on 11/15/17 08:28; Start 08/19/17 at 09:00; Stop 11/15/17 at 10:41; Status DC Hydrochlorothiazide (Hydrodiuril) 25 mg DAILY PO Last administered on 17:12; Start 08/20/17 at 15:00; Stop 08/21/17 at 08:35; Status DC Nystatin (Mycostatin Liq) 5 ml QID OTHER Last administered on 09/02/17 21:12 ; Start 08/23/17 at 18:00; Stop 09/03/17 at 09:51; Status DC Hydrochlorothiazide (Hydrodiuril) 25 mg DAILY PO Last administered on 10:34; Start 08/29/17 at 11:15; Stop 09/03/17 at 09:51; Status DC Hydrochlorothiazide (Microzide) 12.5 mg DAILY PO Last administered on 09:03; Start 09/04/17 at 09:00; Stop 09/04/17 at 13:23; Status DC Nystatin (Mycostatin Liq) 5 ml QID SWISH-SWAL Last administered on 10/17/17 14:28; Start 09/07/17 at 13:00; Stop 10/17/17 at 15:32; Status DC Hydrochlorothiazide (Microzide) 12.5 mg DAILY PO Last administered on 08:12; Start 09/15/17 at 11:45; Stop 09/27/17 at 09:00; Status DC Hydrochlorothiazide (Hydrodiuril) 25 mg DAILY PO Last administered on 09:41; Start 09/27/17 at 09:15; Status Future hold Vancomycin HCl 1000 mg/Sodium Chloride 250 ml @ 250 mls/hr ONCE ONCE IV Last administered on 10/10/17 11:28; Start 10/10/17 at 10:00; Stop 10/10/17 at 10:59 ; Status DC Pharmacy Profile Note 0 ml @ 0 mls/hr UNSCH OTHER ; Start 10/10/17 at 09:00; Stop 10/17/17 at 15:26; Status DC Potassium Bicarb/ Potassium Chloride (K-Lyte Cl Eff) 50 meq ONCE ONCE PEG Last administered on 10/10/17 10:14; Start 10/10/17 at 09:30; Stop 10/10/17 at 09:31; Status DC Vancomycin HCl 1250 mg/Sodium Chloride 262.5 ml @ 250 mls/hr Q12H IV Last administered on 10/11/17 18:08; Start 10/10/17 at 18:00; Stop 10/11/17 at 21:55 ; Status DC Miscellaneous Information SPECIFIC LAB TO BE DRAWN:VANCO TROUGH DATE TO BE ONCE ONCE .XX Last administered on 10/11/17 17:20; Start 10/11/17 at 17 :45; Stop 10/11/17 at 17:46; Status DC Piperacillin Sod/ Tazobactam Sod 50 ml @ 100 mls/hr Q6HR IV ; Start 10/10/17 at 12:00; Stop 10/10/17 at 14:07; Status DC Piperacillin Sod/ Tazobactam Sod 50 ml @ 100 mls/hr Q6HR IV Last administered on 10/22/17 05:38; Start 10/10/17 at 15:00; Stop 10/22/17 at 08:29; Status DC Vancomycin HCl 1000 mg/Sodium Chloride 250 ml @ 250 mls/hr Q12H IV Last administered on 10/14/17 06:03; Start 10/12/17 at 06:00; Stop 10/14/17 at 13:01 ; Status DC Miscellaneous Information SPECIFIC LAB TO BE ONCE ONCE .XX Last administered on 10/14/17 05:45; Start 10/14/17 at 05:45; Stop 10/14/17 at 05:46 ; Status DC Collagenase (Santyl Oint) 1 applic BID TOPICAL Last administered on 10/18/17 21:00; Start 10/12/17 at 09:00; Stop 10/19/17 at 08:47; Status DC Potassium Chloride/Sodium Chloride 1,000 ml @ 100 mls/hr Q10H IV Last administered on 10/16/17 20:57; Start 10/13/17 at 09:00; Stop 10/17/17 at 04: 36; Status DC Fluconazole/ Sodium Chloride 100 ml @ 100 mls/hr Q24H IV Last administered on 10/15/17 12:49; Start 10/13/17 at 12:00; Stop 10/16/17 at 07:19; Status DC Iohexol (Omnipaque 350 Inj) 85 ml STK-MED ONCE IVCONTRAST Last administered on 10/13/17 12:29; Start 10/13/17 at 12:29; Stop 10/13/17 at 12:30; Status DC Potassium Chloride 100 ml @ 50 mls/hr Q2H IV Last administered on 10/14/17 12 :51; Start 10/14/17 at 08:30; Stop 10/14/17 at 12:29; Status DC Potassium Bicarb/ Potassium Chloride (K-Lyte Cl Eff) 50 meq ONCE ONCE PEG Last administered on 10/14/17 10:48; Start 10/14/17 at 08:15; Stop 10/14/17 at 08:17; Status DC Vancomycin HCl 1250 mg/Sodium Chloride 262.5 ml @ 250 mls/hr Q12H IV Last administered on 10/14/17 18:20; Start 10/14/17 at 18:00; Stop 10/15/17 at 09: 15; Status DC Miscellaneous Information SPECIFIC LAB TO BE DRAWN:VANCO TROUGH DATE TO BE DR... ONCE ONCE .XX ; Start 10/16/17 at 05:45; Stop 10/16/17 at 05:46; Status Cancel Potassium Bicarb/ Potassium Chloride (K-Lyte Cl Eff) 50 meq ONCE ONCE PO Last administered on 10/15/17 11:45; Start 10/15/17 at 10:00; Stop 10/15/17 at 10:01; Status DC Vancomycin HCl 1250 mg/Sodium Chloride 262.5 ml @ 250 mls/hr Q12H IV Last administered on 10/17/17 10:01; Start 10/15/17 at 10:00; Stop 10/17/17 at 15 :26; Status DC Miscellaneous Information SPECIFIC LAB TO BE DRAWN:VANCOMYCIN TROUGH DATE TO... ONCE ONCE .XX Last administered on 10/16/17 21:45; Start 10/16/17 at 21:45 ; Stop 10/16/17 at 21:46; Status DC Ciprofloxacin (Cipro) 500 mg Q12HR PEG Last administered on 10/18/17 21:00; Start 10/16/17 at 09:00; Stop 10/19/17 at 09:14; Status DC Potassium Chloride/Sodium Chloride 1,000 ml @ 100 mls/hr Q10H IV Last administered on 10/17/17 10:02; Start 10/17/17 at 08:00; Stop 10/17/17 at 18 :32; Status DC Hydromorphone HCl (Dilaudid Pf Inj) 2 mg ONCE ONCE IV PUSH Last administered on 10/17/17 12:50; Start 10/17/17 at 12:15; Stop 10/17/17 at 12:16; Status DC Sodium Hypochlorite (Dakin'S 0.5% Soln) 500 ml ONCE ONCE TOPICAL Last administered on 10/17/17 14:28; Start 10/17/17 at 13:30; Stop 10/17/17 at 13 :35; Status DC Sodium Hypochlorite (Dakin'S 0.25% Soln) 50 ml BID TOPICAL Last administered on 10/18/17 21:00; Start 10/17/17 at 21:00; Stop 10/19/17 at 08:47; Status DC Morphine Sulfate (Morphine Inj) 2 mg BID PRN IV PUSH painful dressing changes Last administered on 10/20/17 09:23; Start 10/17/17 at 15:00; Stop 10/20/17 at 16:23; Status DC Benztropine Mesylate (Cogentin Inj) 0.5 mg HS IV PUSH ; Start 10/17/17 at 21:00 ; Stop 10/17/17 at 21:00; Status DC Naloxone HCl (Narcan Inj) 0.4 mg UNSCH X1 PRN IV PUSH RESP DEPRESSION OR HYPOTENSION; Start 10/17/17 at 17:30; Stop 10/20/17 at 17:29; Status DC Baclofen (Lioresal) 5 mg ONCE ONCE PO Last administered on 10/17/17 17:45; Start 10/17/17 at 17:45; Stop 10/17/17 at 17:46; Status DC Miscellaneous (Pill Splitter) 1 ea UNSCH PRN OTHER SEE LABEL COMMENTS Last administered on 12/08/17at 20:45; Start 10/17/17 at 17:45 Sodium Chloride 1,000 ml @ 42 mls/hr [id number] IV Last administered on 06:00; Start 10/18/17 at 10:00; Stop 10/24/17 at 15:36; Status DC Collagenase (Santyl Oint) 1 applic BID TOPICAL Last administered on 11/14/17 07 :57; Start 10/19/17 at 10:00; Stop 11/17/17 at 09:01; Status DC Water (Free Water) 150 ml Q6HR G-TUBE Last administered on 12/21/17 12:00; Start 10/19/17 at 12:00 Morphine Sulfate (Morphine Inj) 2 mg BID PRN IV PUSH painful dressing changes Last administered on 10/22/17 09:40; Start 10/20/17 at 16:30; Stop 10/23/17 at 17:45; Status DC Sodium Chloride 500 ml @ 50 mls/hr Q10H IV ; Start 10/20/17 at 17:30; Stop at 17:56; Status DC Sodium Chloride 500 ml @ 1,000 mls/hr BOLUS ONCE IV Last administered on 18:00; Start 10/20/17 at 18:00; Stop 10/20/17 at 18:29; Status DC Diphenhydramine HCl (Benadryl Liq) 50 mg ONCE ONCE PO Last administered on 01:05; Start 10/22/17 at 00:15; Stop 10/22/17 at 00:18; Status DC Piperacillin Sod/ Tazobactam Sod 3.375 gm/Sodium Chloride 100 ml @ 100 mls/hr Q6HR IV Last administered on 10/23/17 17:24; Start 10/22/17 at 12:00; Stop 10/23/17 at 17:45; Status DC Diphenhydramine HCl (Benadryl Inj) 25 mg ONCE ONCE IM Last administered on 17:54; Start 10/23/17 at 17:15; Stop 10/23/17 at 17:40; Status DC Potassium Bicarb/ Potassium Chloride (K-Lyte Cl Eff) 25 meq ONCE ONCE PO ; Start 10/23/17 at 17:45; Stop 10/23/17 at 17:57; Status DC Cefepime HCl 1000 mg/Sodium Chloride 100 ml @ 200 mls/hr Q12H IV Last administered on 11/10/17 09:06; Start 10/23/17 at 20:00; Stop 11/10/17 at 19:59 ; Status DC Levofloxacin/ Dextrose 100 ml @ 100 mls/hr Q24H IV Last administered on 17:56; Start 10/24/17 at 18:00; Stop 11/10/17 at 17:59; Status DC Ketorolac Tromethamine (Toradol Inj) 15 mg DAILY IV PUSH Last administered on 10/28/17 13:45; Start 10/24/17 at 09:00; Stop 10/29/17 at 08:59; Status DC Prednisone (predniSONE LIQ) 10 mg BID PO ; Start 10/23/17 at 21:00; Stop 10/23 at 21:51; Status DC Potassium Bicarb/ Potassium Chloride (K-Lyte Cl Eff) 25 meq ONCE ONCE PEG Last administered on 10/23/17 18:02; Start 10/23/17 at 18:00; Stop 10/23/17 at 18:01; Status DC Prednisone (predniSONE LIQ) 10 mg BID G-TUBE Last administered on 10/24/17 09 :34; Start 10/24/17 at 09:00; Stop 10/24/17 at 15:36; Status DC Potassium Chloride/Sodium Chloride 1,000 ml @ 42 mls/hr [id number] IV Last administered on 10/25/17 11:37; Start 10/24/17 at 16:00; Stop 10/25/17 at 13 :32; Status DC Lisinopril (Prinivil) 10 mg BID PEG Last administered on 11/21/17 21:41; Start 11/15/17 at 21:00; Stop 11/22/17 at 08:58; Status DC Sodium Chloride (NS Flush) 2 ml UNSCH PRN IV FLUSH FLUSH AFTER USING IV ACCESS Last administered on 12/11/17at 08:20; Start 11/17/17 at 10:15 Lisinopril (Prinivil) 5 mg BID PEG ; Start 11/22/17 at 09:15; Stop 11/23/17 at 11:24; Status DC Metoprolol Tartrate (Lopressor) 50 mg BID PEG Last administered on 11/23/17at 20 :50; Start 11/23/17 at 21:00; Stop 11/24/17 at 12:59; Status DC Metoprolol Tartrate (Lopressor) 25 mg BID PEG Last administered on 12/21/17at 09 :40; Start 11/24/17 at 21:00 Ceftriaxone Sodium 1000 mg/ Sodium Chloride 100 ml @ 200 mls/hr Q24H IV Last administered on 12/21/17at 10:15; Start 12/09/17 at 09:00 Polyethylene Glycol (Miralax) 17 gm DAILY PO Last administered on 12/14/17at 09: 08; Start 12/09/17 at 09:15; Stop 12/16/17 at 17:49; Status DC Hydralazine HCl (Apresoline) 50 mg Q6HR PEG Last administered on 12/12/17at 17:41 ; Start 12/11/17 at 06:00; Stop 12/12/17 at 19:14; Status DC Hydralazine HCl (Apresoline) 50 mg Q8HR PEG Last administered on 12/21/17at 14: 06; Start 12/12/17 at 22:00 Potassium Chloride/Dextrose/ Sod Cl 1,000 ml @ 84 mls/hr [id number] IV Last administered on 12/12/17at 20:40; Start 12/12/17 at 19:15; Stop 12/13/17 at 12:00; Status DC Diatrizoate Meglum/ Diatrizoate Sod ( Gastroview Liq) 120 ml STK-MED ONCE PEG ; Start 12/13/17 at 15:17; Stop 12/13/17 at 15:18; Status DC Potassium Bicarb/ Potassium Chloride (K-Lyte Cl Eff) 25 meq ONCE ONCE PO Last administered on 12/16/17at 09:56; Start 12/16/17 at 10:00; Stop 12/16/17 at 10:24; Status DC Polyethylene Glycol (Miralax) 17 gm DAILY PRN PO SEVERE CONSTIPATION; Start 08/23 at 18:00 Nifedipine (Procardia) 40 mg Q6HR .XX Last administered on 12/21/17at 06:22; Start 12/17/17 at 18:00 Urinary Catheter: Yes Assessment to: Continue Cruz insert reason: Stage III/IV Press Ulcer Date of Insertion: Nov 08, 2017 A/P Problem List: (1) Major neurocognitive disorder ICD Code: F03.90 - Unspecified dementia without behavioral disturbance (2) Hemiparesis ICD Code: G81.90 - Hemiplegia, unspecified affecting unspecified side Status: Acute (3) Intracranial hemorrhage ICD Code: I62.9 - Nontraumatic intracranial hemorrhage, unspecified Status: Chronic (4) Aphasia ICD Code: R47.01 - Aphasia Assessment and Plan Assessment and Plan Status post hemorrhagic CVA Continue PT, OT, and ST Patient was homeless prior to admit Poor access for inpatient rehabilitation Family desires aggressive measures for therapy and placement Independent funding unavailable for placement Long-term prognosis is poor No significant capacity for regaining full functionality Palliative care following UTI low-grade fevers Replace Cruz at this time Continue Rocephin 1 g IV daily Urine cultures pending. Currently growing gram-negative rods Repeat chest x-ray Dysphagia Related to intracranial bleed history Status post PEG placement on 05/09/17 Continue tube feeding Hypertension emergency Follow blood pressures. Well-controlled at this time Continue the following blood pressure meds: Nifedipine 40 mg every 6 hours Lisinopril 10 mg twice daily Apresoline 50 mg every 6 hours Catapres TTS 3 patch Metoprolol 100 mg twice daily HCTZ 25 mg daily Apresoline, clonidine, Vasotec as needed Hyperglycemia Glucerna for tube feeds Follow blood sugars intermittently Xeroderma on bilateral feet Lac-Hydrin 12% Lotion continued. Coccyx pressure wound, wound vac in place. Wound care following. . Nutrition: Obtain accurate weight, Tube feeds at 40 cc per hour, will reconsult dietary. Discussed with nursing. DVT Prophylaxis: SCDs given history of recent intracranial hemorrhage Discharge Planning PENDING SAFE PLACEMENT AND FAMILY AGREEMENT Harry Vargas DO Dec 21, 2017 16:00
[2017-12-21 20:33] VITALS: BP 123/83; PULSE 86; RESP 20; TEMP 100.1; O2SAT 98
[2017-12-22] MEDS: NIFEdipine 10 MG CAP SCH ×4 (00:42→17:57)
[2017-12-22 00:46] VITALS: BP 121/86; PULSE 70; RESP 20; TEMP 98.9; O2SAT 97
[2017-12-22] MEDS: hydrALAZINE HCL 100 MG TAB PEG SCH ×3 (05:22→22:00)
[2017-12-22] MEDS: FREE WATER G-TUBE SCH ×4 (05:23→17:58)
[2017-12-22 07:15] VITALS: BP 80/54; PULSE 63; RESP 20; TEMP 99; O2SAT 96
[2017-12-22] MEDS: METOPROLOL TARTRATE 25 MG TAB PEG SCH ×2 (09:00→21:36)
[2017-12-22] MEDS: HYDROCHLOROTHIAZIDE 25 MG TAB PO SCH (09:00)
[2017-12-22] MEDS: LANSOPRAZOLE SOLUTAB 30 MG TAB G-TUBE SCH (10:02)
[2017-12-22] MEDS: cefTRIAXone INJ 1,000 MG in SODIUM CHLORIDE 0.9% INJ 100 ML IV SCH (10:02)
[2017-12-22] MEDS: LACTIC ACID (AMMONIUM LACTATE) 12% LOTION 225 GM BTL TOPICAL SCH ×2 (10:03→21:37)
[2017-12-22 12:00] VITALS: BP 100/52; PULSE 70; RESP 20; O2SAT 97
[2017-12-22 14:00] VITALS: BP 96/54; PULSE 62; RESP 20; O2SAT 96
--- NOTE | 2017-12-22 14:50 | HHI.PR ---
Subjective Remarks 2-14Follows some commands, closes eyes, stick out tongue, good hand leather stitcher especially on the left. No overnight events per nursing. Tube feeds at 40 cc per hour. 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, FLACCID ON RIGHT AND BL LE AT THIS MOMENT WITH BL FOOT DROP 2-16 HAD ISSUES WITH BLOOD PRESSURE TODAY WILL MONITOR WILL GET AM LABS DW RN AND PATIENT Objective Vitals Vital Signs Date Time Temp Pulse Resp B/P (MAP) Pulse Ox O2 Delivery O2 Flow Rate FiO2 12/22/17 00:46 98.9 70 20 121/86 (98) 97 12/21/17 20:33 100.1 86 20 123/83 (96) 98 I/O 12/21/17 12/21/17 12/21/17 12/22/17 12/22/17 12/22/17 07:00 15:00 23:00 07:00 15:00 23:00 Intake Total 730 ml 1180 ml Output Total 650 ml 0 ml 1400.0 ml 600 ml Balance -650 ml 0 ml -670.0 ml 580 ml Intake Oral 0 ml Tube Feeding 480 ml 480 ml Other 250 ml 700 ml Output Urine Total 650 ml 1400 ml 600 ml Tube Feeding Residual Discard 0 ml 0 ml Drainage Total 0 ml # Bowel Movements 2 0 Imaging Last Impressions Abdomen X-Ray 12/13/17 0000 Signed Impressions: Service Date/Time: Wednesday, December 13, 2017 14:17 - CONCLUSION: PEG tube in stomach.. Harry Dumas MD FACR Chest X-Ray 12/11/17 0000 Signed Impressions: Service Date/Time: Monday, December 11, 2017 11:21 - CONCLUSION: Minimal patchiness within the right lung base. Stable cardiomegaly. Degenerative changes and scoliosis of the thoracic spine. Denny Hart MD Upper Extremity Ultrasound 11/06/17 0000 Signed Impressions: Service Date/Time: Monday, November 06, 2017 14:17 - CONCLUSION: Normal examination. Kelby Perez MD Pelvis CT 10/13/17 0000 Signed Impressions: Service Date/Time: Friday, October 13, 2017 12:02 - CONCLUSION: 1. Decubitus ulcer with small abscess in the right posterior perineal region measuring 3.1 x 4.6 cm. There is also a small abscess posterior and to the left of the rectum measuring 3.2 x 2.3 cm. Jann Weber MD Head CT 04/25/17 0000 Signed Impressions: Service Date/Time: Tuesday, April 25, 2017 18:02 - CONCLUSION: 1. Evolving left thalamic hematoma. No new hemorrhage. Adi Quarles MD Neck CTA 04/10/17 0000 Signed Impressions: Service Date/Time: Monday, April 10, 2017 22:28 - CONCLUSION: The internal carotid arteries are normal bilaterally. No significant atherosclerotic disease is noted. Eliud Du MD Head CTA 04/10/17 0000 Signed Impressions: Service Date/Time: Monday, April 10, 2017 22:50 - CONCLUSION: Mild dilatation of the basilar tip without discrete aneurysm. Some narrowing of the left middle cerebral branch after the bifurcation. Prominent left thalamic hemorrhage. Eliud Du MD Objective Remarks GENERAL: Patient lying in CHAIR, appears comfortable -HER VOICE IS very soft- spoken can be heard with my stethoscope only SKIN: Warm and dry. HEAD: Atraumatic. Normocephalic. EYES: Pupils equal and round. No scleral icterus. No injection or drainage. ENT: No nasal bleeding or discharge. Mucous membranes pink and moist. NECK: Trachea midline. No JVD. Supple CARDIOVASCULAR: Regular rate and rhythm. S1 and S2 no S3 or S4 RESPIRATORY: No accessory muscle use. Clear to auscultation. Breath sounds equal bilaterally. GASTROINTESTINAL: Abdomen soft, non-tender, nondistended. Hepatic and splenic margins not palpable. PEG tube in place--Cruz catheter in place MUSCULOSKELETAL: Extremities without clubbing, cyanosis, or edema. No obvious deformities. Has bilateral foot drop and right upper extremity flaccid can move left upper extremity with good leather stitcher strength NEUROLOGICAL: Awake and alert. No obvious cranial nerve deficits. Normal speech but very very soft. PSYCHIATRIC: Appropriate mood and affect; insight and judgment ABnormal. Procedures Peg Tube placed 05/08/17 (Dr. De Los Santos) Medications and IVs Current Medications Sodium Chloride (NS Flush) 2 ml UNSCH PRN IVF FLUSH AFTER USING IV ACCESS; Start 04/10/17 at 20:00; Stop 04/10/17 at 22:12; Status DC Nicardipine HCl 25 mg/Sodium Chloride 260 ml @ 0 mls/hr TITRATE IV Last administered on 04/10/17 21:34; Start 04/10/17 at 20:00; Stop 04/10/17 at 22:12; Status DC Sodium Chloride 1,000 ml @ 84 mls/hr [id number] IV Last administered on 04/11/17 07:47; Start 04/10/17 at 22:00; Stop 04/11/17 at 15:41; Status DC Sodium Chloride (NS Flush) 2 ml UNSCH PRN .XX FLUSH AFTER USING IV ACCESS Last administered on 05/01/17 04:49; Start 04/10/17 at 22:00; Stop 05/26/17 at 10:07 ; Status DC Sodium Chloride (NS Flush) 2 ml BID .XX Last administered on 05/26/17 09:54; Start 04/11/17 at 09:00; Stop 05/26/17 at 10:07; Status DC Acetaminophen (Tylenol) 650 mg Q6H PRN PO PAIN 1-10 AND/OR FEVER >101F Last administered on 04/26/17 13:46; Start 04/10/17 at 22:00; Stop 06/16/17 at 10:03 ; Status DC Morphine Sulfate (Morphine Inj) 2 mg Q2H PRN IV PAIN SCALE 6 TO 10 Last administered on 05/25/17 21:09; Start 04/10/17 at 22:00; Stop 05/26/17 at 10:07 ; Status DC Famotidine (Pepcid Inj) 20 mg Q12HR IV PUSH Last administered on 05/04/17 08: 37; Start 04/11/17 at 09:00; Stop 05/04/17 at 14:13; Status DC Ondansetron HCl (Zofran Inj) 4 mg Q6H PRN IV NAUSEA OR VOMITING; Start 04/10/17 at 22:00; Stop 05/26/17 at 10:07; Status DC Metoclopramide HCl (Reglan Inj) 10 mg Q6H PRN IV NAUSEA OR VOMITING; Start 04/10 at 22:00; Stop 05/26/17 at 10:07; Status DC Prochlorperazine (Compazine Supp) 25 mg Q12H PRN RECTAL NAUSEA OR VOMITING; Start 04/10/17 at 22:00; Stop 05/26/17 at 10:07; Status DC Albuterol/ Ipratropium (Duoneb Neb) 1 ampule Q2HR NEB PRN INH WHEEZING; Start 04/10/17 at 22:00; Stop 05/26/17 at 10:07; Status DC Miscellaneous Information 1 [id number] XX Last administered on 04/10/17 22:00; Start 04/10/17 at 22:00; Stop 05/26/17 at 10:07; Status DC Chlorhexidine Gluconate (Chlorhexidine 2% Cloth) Taper DAILY@04 TOP Last administered on 05/21/17 04:00; Start 04/11/17 at 04:00; Stop 05/26/17 at 10:07 ; Status DC Chlorhexidine Gluconate (Chlorhexidine 2% Cloth) 3 pack UNSCH PRN TOP HYGIENIC CARE; Start 04/10/17 at 22:00; Stop 05/26/17 at 10:07; Status DC Senna/Docusate Sodium (Evelyn-Colace) 1 tab BID PO Last administered on 09:20; Start 04/11/17 at 09:00; Stop 06/16/17 at 10:03; Status DC Magnesium Hydroxide (Milk Of Magnesia Liq) 30 ml Q12H PRN PO MILD - MODERATE CONSTIPATION; Start 04/10/17 at 22:00; Stop 05/26/17 at 10:07; Status DC Sennosides (Senokot) 17.2 mg Q12H PRN PO MODERATE - SEVERE CONSTIPATION Last administered on 05/08/17 21:29; Start 04/10/17 at 22:00; Stop 05/26/17 at 10:07; Status DC Bisacodyl (Dulcolax Supp) 10 mg DAILY PRN RECTAL SEVERE CONSITIPATION; Start at 22:00 Lactulose (Lactulose Liq) 30 ml DAILY PRN PO SEVERE CONSITIPATION Last administered on 04/24/17 08:44; Start 04/10/17 at 22:00; Stop 06/16/17 at 10:03 ; Status DC Nicardipine HCl 25 mg/Sodium Chloride 260 ml @ 0 mls/hr TITRATE IV Last administered on 04/14/17 04:35; Start 04/10/17 at 22:15; Stop 04/14/17 at 12:18; Status DC Iohexol (Omnipaque 350 Inj) 70 ml STK-MED ONCE IV Last administered on 22:35; Start 04/10/17 at 22:35; Stop 04/10/17 at 22:36; Status DC Labetalol HCl (Trandate Inj) 20 mg Q4H PRN IV PUSH sbp>160 Last administered on 04/17/17 02:24; Start 04/12/17 at 08:15; Stop 04/25/17 at 18:06; Status DC Hydralazine HCl (Apresoline Inj) 20 mg Q4H PRN IV PUSH sbp>150 Last administered on 05/17/17 20:39; Start 04/12/17 at 08:15; Stop 05/18/17 at 14:44 ; Status DC Amlodipine Besylate (Norvasc) 5 mg DAILY PO Last administered on 04/14/17 08:55 ; Start 04/12/17 at 09:00; Stop 04/15/17 at 06:44; Status DC Metoclopramide HCl (Reglan Inj) 5 mg Q8HR IV PUSH Last administered on 14:02; Start 04/12/17 at 16:00; Stop 05/04/17 at 14:13; Status DC Potassium Chloride 100 ml @ 50 mls/hr Q2H PRN IV For Potassium 2.8 - 3.2 mEq/L ; Start 04/13/17 at 11:45; Stop 04/25/17 at 11:32; Status DC Potassium Chloride 100 ml @ 50 mls/hr Q2H PRN IV For Potassium 2.8 - 3.2 mEq/ L Last administered on 04/14/17 13:06; Start 04/13/17 at 11:45; Stop 04/25/17 at 11:32; Status DC Potassium Bicarb/ Potassium Chloride (K-Lyte Cl Eff) 50 meq UNSCH PRN PO For Potassium 3.3 - 3.5 mEq/L Last administered on 04/19/17 14:03; Start 04/13/17 at 11:45; Stop 04/25/17 at 11:32; Status DC Potassium Chloride 100 ml @ 25 mls/hr UNSCH PRN IV For Potassium 3.3 - 3.5 mEq /L; Start 04/13/17 at 11:45; Stop 04/25/17 at 11:32; Status DC Potassium Chloride 100 ml @ 50 mls/hr Q2H PRN IV For Potassium 3.3 - 3.5 mEq/L ; Start 04/13/17 at 11:45; Stop 04/25/17 at 11:32; Status DC Magnesium Sulfate 4 gm/Sodium Chloride 100 ml @ 50 mls/hr UNSCH PRN IV For Magnesium 0.9 - 1.1 mg/dL; Start 04/13/17 at 11:45; Stop 04/25/17 at 11:32; Status DC Magnesium Oxide (Mag-Ox) 800 mg UNSCH PRN PO For Magnesium 1.2 - 1.6 mg/dL; Start 04/13/17 at 11:45; Stop 04/25/17 at 11:32; Status DC Magnesium Sulfate 2 gm/Sodium Chloride 100 ml @ 50 mls/hr UNSCH PRN IV For Magnesium 1.2 - 1.6 mg/dL; Start 04/13/17 at 11:45; Stop 04/25/17 at 11:32; Status DC Potassium Phosphate (K-Phos) 2,000 mg Q4H PRN PO For Phosphorus < 2.5 mg/dL; Start 04/13/17 at 11:45; Stop 04/25/17 at 11:32; Status DC Sodium Phosphate 30 mmol/Sodium Chloride 250 ml @ 42 mls/hr UNSCH PRN IV For Phosphorus < 2.5 mg/dL; Start 04/13/17 at 11:45; Stop 04/25/17 at 11:32; Status DC Potassium Phosphate (K-Phos) 2,000 mg UNSCH PRN PO/TUBE SEE LABEL COMMENTS; Start 04/13/17 at 11:45; Stop 04/25/17 at 11:32; Status DC Potassium Phosphate 30 mmol/ Sodium Chloride 260 ml @ 42 mls/hr UNSCH PRN IV SEE LABEL COMMENTS; Start 04/13/17 at 11:45; Stop 04/25/17 at 11:32; Status DC Metoprolol Tartrate (Lopressor) 25 mg Q8HR PO Last administered on 04/14/17t 05: 40; Start 04/13/17 at 14:00; Stop 04/14/17 at 12:18; Status DC Hydralazine HCl (Apresoline) 50 mg Q8H PO Last administered on 04/14/17 03:23; Start 04/13/17 at 12:00; Stop 04/14/17 at 09:23; Status DC Hydralazine HCl (Apresoline) 100 mg Q8H PO Last administered on 04/14/17 11:25 ; Start 04/14/17 at 12:00; Stop 04/14/17 at 19:47; Status DC Metoprolol Tartrate (Lopressor) 50 mg Q8HR PO Last administered on 04/24/17 05 :27; Start 04/14/17 at 14:00; Stop 04/24/17 at 09:28; Status DC Hydralazine HCl (Apresoline Inj) 20 mg ONCE ONCE IV PUSH Last administered on 04/14/17 17:42; Start 04/14/17 at 17:15; Stop 04/14/17 at 17:32; Status DC Labetalol HCl (Trandate Inj) 10 mg ONCE ONCE IV PUSH Last administered on 17:42; Start 04/14/17 at 17:15; Stop 04/14/17 at 17:32; Status DC Clonidine (Catapres) 0.3 mg ONCE ONCE PO Last administered on 04/14/17 17:50; Start 04/14/17 at 17:15; Stop 04/14/17 at 17:32; Status DC Clonidine (Catapres) 0.2 mg Q8HR PO ; Start 04/14/17 at 22:00; Stop 04/14/17 at 22 :00; Status DC Clonidine (Catapres) 0.3 mg Q8HR PO Last administered on 04/26/17 05:55; Start 04/14/17 at 22:00; Stop 04/26/17 at 14:39; Status DC Hydralazine HCl (Apresoline) 100 mg Q6HR PO Last administered on 04/15/17 10: 39; Start 04/15/17 at 00:00; Stop 04/15/17 at 13:10; Status DC Amlodipine Besylate (Norvasc) 10 mg DAILY PO Last administered on 06/12/17 07: 39; Start 04/14/17 at 19:45; Stop 06/12/17 at 07:56; Status DC Enalaprilat (Vasotec Inj) 1.25 mg Q6H PRN IV PUSH SBP>160, DBP>90 Last administered on 05/13/17 01:22; Start 04/15/17 at 01:15; Stop 05/26/17 at 10:07 ; Status DC Nitroglycerin (Nitroglycerin 2% Oint) 2 inch Q6HR PRN TOPICAL SBP>160, DBP>90 Last administered on 04/16/17 12:34; Start 04/15/17 at 06:00; Stop 05/26/17 at 10:07; Status DC Hydralazine HCl (Apresoline) 100 mg Q8HR PO Last administered on 04/26/17 05: 55; Start 04/15/17 at 14:00; Stop 04/26/17 at 14:39; Status DC Lisinopril (Prinivil) 20 mg DAILY PO Last administered on 04/16/17 08:32; Start 04/15/17 at 13:30; Stop 04/16/17 at 14:58; Status DC Lisinopril (Prinivil) 20 mg ONCE ONCE PO Last administered on 04/16/17 15:27 ; Start 04/16/17 at 15:00; Stop 04/16/17 at 15:03; Status DC Lisinopril (Prinivil) 40 mg BID PO Last administered on 04/20/17 09:09; Start 04/16/17 at 21:00; Stop 04/20/17 at 16:42; Status DC Hydrochlorothiazide (Hydrodiuril) 25 mg DAILY PO Last administered on 08:59; Start 04/17/17 at 17:45; Stop 04/18/17 at 16:28; Status DC Hydrochlorothiazide (Hydrodiuril) 25 mg ONCE ONCE PO Last administered on 04/18 16:51; Start 04/18/17 at 16:30; Stop 04/18/17 at 16:32; Status DC Hydrochlorothiazide (Hydrodiuril) 50 mg DAILY PO Last administered on 08:50; Start 04/19/17 at 09:00; Stop 04/25/17 at 18:06; Status DC Lisinopril (Prinivil) 30 mg BID PO Last administered on 04/25/17 08:50; Start 04/20/17 at 21:00; Stop 04/25/17 at 18:06; Status DC Miscellaneous (Pill Splitter) 1 ea UNSCH PRN OTHER SEE LABEL COMMENTS; Start at 17:15; Stop 10/18/17 at 09:37; Status DC Ceftriaxone Sodium 1000 mg/ Sodium Chloride 100 ml @ 200 mls/hr HS IV Last administered on 04/29/17 22:04; Start 04/22/17 at 21:30; Stop 04/30/17 at 12:37 ; Status DC Metoprolol Tartrate (Lopressor) 50 mg BID PO Last administered on 05/26/17 09: 54; Start 04/24/17 at 21:00; Stop 05/26/17 at 10:12; Status DC Lisinopril (Prinivil) 20 mg DAILY PO Last administered on 04/27/17 09:52; Start 04/26/17 at 09:00; Stop 04/28/17 at 00:21; Status DC Clonidine (Catapres) 0.2 mg Q8HR PO Last administered on 05/26/17 05:57; Start 04/26/17 at 22:00; Stop 05/26/17 at 10:12; Status DC Hydralazine HCl (Apresoline) 50 mg Q8HR PO Last administered on 04/27/17 12:45 ; Start 04/26/17 at 22:00; Stop 04/27/17 at 15:31; Status DC Hydralazine HCl (Apresoline) 100 mg Q8HR PO Last administered on 06/10/17 06:18 ; Start 04/27/17 at 22:00; Stop 06/10/17 at 12:03; Status DC Lisinopril (Prinivil) 40 mg DAILY PO Last administered on 06/16/17 09:20; Start 04/28/17 at 09:00; Stop 06/16/17 at 10:03; Status DC Famotidine (Pepcid) 20 mg BID NG Last administered on 05/09/17 09:36; Start at 21:00; Stop 05/09/17 at 12:49; Status DC Lactic Acid (Lac-Hydrin 12% Lotion) 1 applic BID TOPICAL Last administered on at 10:03; Start 05/04/17 at 14:00 Cefazolin Sodium 1000 mg/Sodium Chloride 100 ml @ 200 mls/hr UPPER LINING CEMENTER IV ; Start 05/06/17 at 10:30; Stop 05/09/17 at 10:29; Status DC Cefazolin Sodium (Ancef Inj) 1,000 mg STK-MED ONCE IV Last administered on 15:00; Start 05/08/17 at 15:00; Stop 05/08/17 at 15:08; Status DC Propofol (Diprivan 200 Mg/20 ml Inj) 150 mg STK-MED ONCE IV PUSH ; Start at 15:27; Stop 05/08/17 at 15:45; Status DC Lansoprazole (Prevacid Odt) 30 mg DAILY G-TUBE Last administered on 12/22/17at 10:02; Start 05/10/17 at 09:00 Nystatin (Mycostatin Liq) 5 ml QID SWISH-SWAL Last administered on 05/22/17 09:36; Start 05/14/17 at 13:00; Stop 05/22/17 at 11:19; Status DC Hydralazine HCl (Apresoline) 25 mg Q4HR PRN PEG for sbp greater than 150 Last administered on 11/04/17 14:28; Start 05/18/17 at 14:45 Clonidine (Catapres) 0.1 mg Q6H PRN PO for SBP greater than 170 Last administered on 05/22/17 02:48; Start 05/21/17 at 07:30; Stop 05/26/17 at 10:12 ; Status DC Nystatin (Mycostatin Liq) 5 ml QID SWISH-SWAL Last administered on 05/28/17 09:43; Start 05/23/17 at 13:00; Stop 05/28/17 at 10:02; Status DC Ondansetron HCl (Zofran Liq) 4 mg Q6H PRN PEG NAUSEA OR VOMITING; Start at 10:00 Metoprolol Tartrate (Lopressor) 75 mg BID PO Last administered on 05/28/17 09: 43; Start 05/26/17 at 21:00; Stop 05/28/17 at 09:58; Status DC Clonidine (Catapres-Tts 0.2 Mg Patch.7d) 1 patch Q7D T-DERMAL Last administered on 06/02/17 11:27; Start 05/26/17 at 12:00; Stop 06/06/17 at 12:47 ; Status DC Miscellaneous Information 1 Q7D T-DERMAL Last administered on 06/02/17 11:28; Start 06/02/17 at 12:00; Stop 06/06/17 at 13:31; Status DC Metoprolol Tartrate (Lopressor) 100 mg BID PO Last administered on 06/16/17 09 :20; Start 05/28/17 at 21:00; Stop 06/16/17 at 10:03; Status DC Fluconazole (Diflucan) 200 mg DAILY PO Last administered on 06/03/17 08:44; Start 05/28/17 at 11:00; Stop 06/04/17 at 08:59; Status DC Levofloxacin (Levaquin Liq) 750 mg Q24H PEG ; Start 05/29/17 at 11:00; Stop at 15:05; Status DC Levofloxacin (Levaquin Liq) 750 mg DAILY@16 PEG Last administered on 16:20; Start 05/29/17 at 16:00; Stop 06/04/17 at 16:01; Status DC Sodium Chloride 500 ml @ 500 mls/hr BOLUS ONCE IV Last administered on 15:43; Start 06/01/17 at 11:30; Stop 06/01/17 at 12:29; Status DC Sodium Chloride 1,000 ml @ 100 mls/hr Q10H IV Last administered on 06/03/17 06:17; Start 06/02/17 at 11:15; Stop 06/03/17 at 10:16; Status DC Clonidine (Catapres-Tts 0.3 Mg Patch.7d) 1 patch Q7D T-DERMAL Last administered on 12/19/17 17:32; Start 06/06/17 at 15:00 Miscellaneous Information 1 Q7D T-DERMAL Last administered on 12/19/17 15:00; Start 06/06/17 at 15:00 Hydralazine HCl (Apresoline) 100 mg Q6HR PO Last administered on 06/16/17 06: 20; Start 06/10/17 at 18:00; Stop 06/16/17 at 10:03; Status DC Nifedipine (Procardia Xl) 60 mg DAILY PO Last administered on 06/15/17 10:04; Start 06/12/17 at 09:00; Stop 06/16/17 at 10:03; Status DC Acetaminophen (Tylenol) 650 mg Q6H PRN PEG PAIN 1-10 AND/OR FEVER >101F Last administered on 10/17/17 19:29; Start 06/16/17 at 16:00; Status Future Hold Senna/Docusate Sodium (Evelyn-Colace) 1 tab BID PEG Last administered on 09:42; Start 06/16/17 at 21:00; Stop 06/28/17 at 10:38; Status DC Hydralazine HCl (Apresoline) 100 mg Q6HR PEG Last administered on 08/17/17 22 :43; Start 06/16/17 at 12:00; Stop 08/18/17 at 07:50; Status DC Lactulose (Lactulose Liq) 30 ml DAILY PRN PEG SEVERE CONSITIPATION; Start 06/16 at 10:00; Stop 08/17/17 at 08:28; Status DC Lisinopril (Prinivil) 40 mg DAILY PEG Last administered on 08/16/17 08:04; Start 06/17/17 at 09:00; Stop 08/18/17 at 07:50; Status DC Metoprolol Tartrate (Lopressor) 100 mg BID PEG Last administered on 11/21/17at 21:41; Start 06/16/17 at 21:00; Stop 11/23/17 at 11:24; Status DC Nifedipine (Procardia) 20 mg Q8HR PEG Last administered on 06/20/17 05:41; Start 06/16/17 at 14:00; Stop 06/20/17 at 14:35; Status DC Nifedipine (Procardia) 30 mg Q8HR .XX Last administered on 06/22/17 13:13; Start 06/20/17 at 22:00; Stop 06/22/17 at 13:14; Status DC Nifedipine (Procardia) 30 mg Q6HR .XX Last administered on 06/26/17 06:32; Start 06/22/17 at 18:00; Stop 06/26/17 at 11:22; Status DC Nifedipine (Procardia) 40 mg Q6HR PEG Last administered on 12/17/17at 11:55; Start 06/26/17 at 12:00; Stop 12/17/17 at 18:00; Status DC Sennosides (Senna Liq) 8.8 mg DAILY PEG Last administered on 10/17/17 10:02 ; Start 06/29/17 at 09:00; Status Future Hold Hydrochlorothiazide (Hydrodiuril) 25 mg DAILY PO Last administered on 07/07/17 08:49; Start 07/01/17 at 12:00; Stop 07/07/17 at 11:21; Status DC Hydrochlorothiazide (Hydrodiuril) 25 mg BID@18 PEG Last administered on 07/21 17:17; Start 07/07/17 at 18:00; Stop 07/28/17 at 15:04; Status DC Potassium Bicarb/ Potassium Chloride (K-Lyte Cl Eff) 25 meq DAILY PEG Last administered on 07/22/17 09:54; Start 07/07/17 at 11:30; Stop 07/28/17 at 15:04 ; Status DC Hydrochlorothiazide (Hydrodiuril) 25 mg DAILY PO Last administered on 08:04; Start 08/04/17 at 12:30; Stop 08/18/17 at 07:50; Status DC Nystatin (Mycostatin Liq) 5 ml QID OTHER Last administered on 08/21/17 17:54 ; Start 08/13/17 at 18:00; Stop 08/21/17 at 18:00; Status DC Polyethylene Glycol (Miralax) 17 gm DAILY PRN PO severe constipation Last administered on 08/30/17 23:22; Start 08/17/17 at 08:30; Stop 12/09/17 at 09: 10; Status DC Hydralazine HCl (Apresoline) 100 mg Q8HR PEG Last administered on 08/19/17 06 :38; Start 08/18/17 at 14:00; Stop 08/19/17 at 07:53; Status DC Lisinopril (Prinivil) 20 mg BID PEG ; Start 08/18/17 at 09:00; Stop 08/19/17 at 07:53; Status DC Hydralazine HCl (Apresoline) 50 mg Q6HR PEG Last administered on 12/10/17 23:28 ; Start 08/19/17 at 12:00; Stop 12/11/17 at 04:19; Status DC Lisinopril (Prinivil) 10 mg BID PEG Last administered on 11/15/17 08:28; Start 08/19/17 at 09:00; Stop 11/15/17 at 10:41; Status DC Hydrochlorothiazide (Hydrodiuril) 25 mg DAILY PO Last administered on 17:12; Start 08/20/17 at 15:00; Stop 08/21/17 at 08:35; Status DC Nystatin (Mycostatin Liq) 5 ml QID OTHER Last administered on 09/02/17 21:12 ; Start 08/23/17 at 18:00; Stop 09/03/17 at 09:51; Status DC Hydrochlorothiazide (Hydrodiuril) 25 mg DAILY PO Last administered on 10:34; Start 08/29/17 at 11:15; Stop 09/03/17 at 09:51; Status DC Hydrochlorothiazide (Microzide) 12.5 mg DAILY PO Last administered on 09:03; Start 09/04/17 at 09:00; Stop 09/04/17 at 13:23; Status DC Nystatin (Mycostatin Liq) 5 ml QID SWISH-SWAL Last administered on 10/17/17 14:28; Start 09/07/17 at 13:00; Stop 10/17/17 at 15:32; Status DC Hydrochlorothiazide (Microzide) 12.5 mg DAILY PO Last administered on 08:12; Start 09/15/17 at 11:45; Stop 09/27/17 at 09:00; Status DC Hydrochlorothiazide (Hydrodiuril) 25 mg DAILY PO Last administered on 09:41; Start 09/27/17 at 09:15; Status Future hold Vancomycin HCl 1000 mg/Sodium Chloride 250 ml @ 250 mls/hr ONCE ONCE IV Last administered on 10/10/17 11:28; Start 10/10/17 at 10:00; Stop 10/10/17 at 10:59 ; Status DC Pharmacy Profile Note 0 ml @ 0 mls/hr UNSCH OTHER ; Start 10/10/17 at 09:00; Stop 10/17/17 at 15:26; Status DC Potassium Bicarb/ Potassium Chloride (K-Lyte Cl Eff) 50 meq ONCE ONCE PEG Last administered on 10/10/17 10:14; Start 10/10/17 at 09:30; Stop 10/10/17 at 09:31; Status DC Vancomycin HCl 1250 mg/Sodium Chloride 262.5 ml @ 250 mls/hr Q12H IV Last administered on 10/11/17 18:08; Start 10/10/17 at 18:00; Stop 10/11/17 at 21:55 ; Status DC Miscellaneous Information SPECIFIC LAB TO BE DRAWN:VANCO TROUGH DATE TO BE .Lanre ONCE ONCE .XX Last administered on 10/11/17 17:20; Start 10/11/17 at 17 :45; Stop 10/11/17 at 17:46; Status DC Piperacillin Sod/ Tazobactam Sod 50 ml @ 100 mls/hr Q6HR IV ; Start 10/10/17 at 12:00; Stop 10/10/17 at 14:07; Status DC Piperacillin Sod/ Tazobactam Sod 50 ml @ 100 mls/hr Q6HR IV Last administered on 10/22/17 05:38; Start 10/10/17 at 15:00; Stop 10/22/17 at 08:29; Status DC Vancomycin HCl 1000 mg/Sodium Chloride 250 ml @ 250 mls/hr Q12H IV Last administered on 10/14/17 06:03; Start 10/12/17 at 06:00; Stop 10/14/17 at 13:01 ; Status DC Miscellaneous Information SPECIFIC LAB TO BE BEKA..Lanre ONCE ONCE .XX Last administered on 10/14/17 05:45; Start 10/14/17 at 05:45; Stop 10/14/17 at 05:46 ; Status DC Collagenase (Santyl Oint) 1 applic BID TOPICAL Last administered on 10/18/17 21:00; Start 10/12/17 at 09:00; Stop 10/19/17 at 08:47; Status DC Potassium Chloride/Sodium Chloride 1,000 ml @ 100 mls/hr Q10H IV Last administered on 10/16/17 20:57; Start 10/13/17 at 09:00; Stop 10/17/17 at 04: 36; Status DC Fluconazole/ Sodium Chloride 100 ml @ 100 mls/hr Q24H IV Last administered on 10/15/17 12:49; Start 10/13/17 at 12:00; Stop 10/16/17 at 07:19; Status DC Iohexol (Omnipaque 350 Inj) 85 ml STK-MED ONCE IVCONTRAST Last administered on 10/13/17 12:29; Start 10/13/17 at 12:29; Stop 10/13/17 at 12:30; Status DC Potassium Chloride 100 ml @ 50 mls/hr Q2H IV Last administered on 10/14/17 12 :51; Start 10/14/17 at 08:30; Stop 10/14/17 at 12:29; Status DC Potassium Bicarb/ Potassium Chloride (K-Lyte Cl Eff) 50 meq ONCE ONCE PEG Last administered on 10/14/17 10:48; Start 10/14/17 at 08:15; Stop 10/14/17 at 08:17; Status DC Vancomycin HCl 1250 mg/Sodium Chloride 262.5 ml @ 250 mls/hr Q12H IV Last administered on 10/14/17 18:20; Start 10/14/17 at 18:00; Stop 10/15/17 at 09: 15; Status DC Miscellaneous Information SPECIFIC LAB TO BE DRAWN:VANCO TROUGH DATE TO BE DR... ONCE ONCE .XX ; Start 10/16/17 at 05:45; Stop 10/16/17 at 05:46; Status Cancel Potassium Bicarb/ Potassium Chloride (K-Lyte Cl Eff) 50 meq ONCE ONCE PO Last administered on 10/15/17 11:45; Start 10/15/17 at 10:00; Stop 10/15/17 at 10:01; Status DC Vancomycin HCl 1250 mg/Sodium Chloride 262.5 ml @ 250 mls/hr Q12H IV Last administered on 10/17/17 10:01; Start 10/15/17 at 10:00; Stop 10/17/17 at 15 :26; Status DC Miscellaneous Information SPECIFIC LAB TO BE DRAWN:VANCOMYCIN TROUGH DATE TO... ONCE ONCE .XX Last administered on 10/16/17 21:45; Start 10/16/17 at 21:45 ; Stop 10/16/17 at 21:46; Status DC Ciprofloxacin (Cipro) 500 mg Q12HR PEG Last administered on 10/18/17 21:00; Start 10/16/17 at 09:00; Stop 10/19/17 at 09:14; Status DC Potassium Chloride/Sodium Chloride 1,000 ml @ 100 mls/hr Q10H IV Last administered on 10/17/17 10:02; Start 10/17/17 at 08:00; Stop 10/17/17 at 18 :32; Status DC Hydromorphone HCl (Dilaudid Pf Inj) 2 mg ONCE ONCE IV PUSH Last administered on 10/17/17 12:50; Start 10/17/17 at 12:15; Stop 10/17/17 at 12:16; Status DC Sodium Hypochlorite (Dakin'S 0.5% Soln) 500 ml ONCE ONCE TOPICAL Last administered on 10/17/17 14:28; Start 10/17/17 at 13:30; Stop 10/17/17 at 13 :35; Status DC Sodium Hypochlorite (Dakin'S 0.25% Soln) 50 ml BID TOPICAL Last administered on 10/18/17 21:00; Start 10/17/17 at 21:00; Stop 10/19/17 at 08:47; Status DC Morphine Sulfate (Morphine Inj) 2 mg BID PRN IV PUSH painful dressing changes Last administered on 10/20/17 09:23; Start 10/17/17 at 15:00; Stop 10/20/17 at 16:23; Status DC Benztropine Mesylate (Cogentin Inj) 0.5 mg HS IV PUSH ; Start 10/17/17 at 21:00 ; Stop 10/17/17 at 21:00; Status DC Naloxone HCl (Narcan Inj) 0.4 mg UNSCH X1 PRN IV PUSH RESP DEPRESSION OR HYPOTENSION; Start 10/17/17 at 17:30; Stop 10/20/17 at 17:29; Status DC Baclofen (Lioresal) 5 mg ONCE ONCE PO Last administered on 10/17/17 17:45; Start 10/17/17 at 17:45; Stop 10/17/17 at 17:46; Status DC Miscellaneous (Pill Splitter) 1 ea UNSCH PRN OTHER SEE LABEL COMMENTS Last administered on 12/08/17 20:45; Start 10/17/17 at 17:45 Sodium Chloride 1,000 ml @ 42 mls/hr [id number] IV Last administered on 06:00; Start 10/18/17 at 10:00; Stop 10/24/17 at 15:36; Status DC Collagenase (Santyl Oint) 1 applic BID TOPICAL Last administered on 11/14/17 07 :57; Start 10/19/17 at 10:00; Stop 11/17/17 at 09:01; Status DC Water (Free Water) 150 ml Q6HR G-TUBE Last administered on 12/22/17 12:29; Start 10/19/17 at 12:00 Morphine Sulfate (Morphine Inj) 2 mg BID PRN IV PUSH painful dressing changes Last administered on 10/22/17 09:40; Start 10/20/17 at 16:30; Stop 10/23/17 at 17:45; Status DC Sodium Chloride 500 ml @ 50 mls/hr Q10H IV ; Start 10/20/17 at 17:30; Stop at 17:56; Status DC Sodium Chloride 500 ml @ 1,000 mls/hr BOLUS ONCE IV Last administered on 18:00; Start 10/20/17 at 18:00; Stop 10/20/17 at 18:29; Status DC Diphenhydramine HCl (Benadryl Liq) 50 mg ONCE ONCE PO Last administered on 01:05; Start 10/22/17 at 00:15; Stop 10/22/17 at 00:18; Status DC Piperacillin Sod/ Tazobactam Sod 3.375 gm/Sodium Chloride 100 ml @ 100 mls/hr Q6HR IV Last administered on 10/23/17 17:24; Start 10/22/17 at 12:00; Stop 10/23/17 at 17:45; Status DC Diphenhydramine HCl (Benadryl Inj) 25 mg ONCE ONCE IM Last administered on 17:54; Start 10/23/17 at 17:15; Stop 10/23/17 at 17:40; Status DC Potassium Bicarb/ Potassium Chloride (K-Lyte Cl Eff) 25 meq ONCE ONCE PO ; Start 10/23/17 at 17:45; Stop 10/23/17 at 17:57; Status DC Cefepime HCl 1000 mg/Sodium Chloride 100 ml @ 200 mls/hr Q12H IV Last administered on 11/10/17 09:06; Start 10/23/17 at 20:00; Stop 11/10/17 at 19:59 ; Status DC Levofloxacin/ Dextrose 100 ml @ 100 mls/hr Q24H IV Last administered on 17:56; Start 10/24/17 at 18:00; Stop 11/10/17 at 17:59; Status DC Ketorolac Tromethamine (Toradol Inj) 15 mg DAILY IV PUSH Last administered on 10/28/17 13:45; Start 10/24/17 at 09:00; Stop 10/29/17 at 08:59; Status DC Prednisone (predniSONE LIQ) 10 mg BID PO ; Start 10/23/17 at 21:00; Stop 10/23 at 21:51; Status DC Potassium Bicarb/ Potassium Chloride (K-Lyte Cl Eff) 25 meq ONCE ONCE PEG Last administered on 10/23/17 18:02; Start 10/23/17 at 18:00; Stop 10/23/17 at 18:01; Status DC Prednisone (predniSONE LIQ) 10 mg BID G-TUBE Last administered on 10/24/17 09 :34; Start 10/24/17 at 09:00; Stop 10/24/17 at 15:36; Status DC Potassium Chloride/Sodium Chloride 1,000 ml @ 42 mls/hr [id number] IV Last administered on 10/25/17 11:37; Start 10/24/17 at 16:00; Stop 10/25/17 at 13 :32; Status DC Lisinopril (Prinivil) 10 mg BID PEG Last administered on 11/21/17 21:41; Start 11/15/17 at 21:00; Stop 11/22/17 at 08:58; Status DC Sodium Chloride (NS Flush) 2 ml UNSCH PRN IV FLUSH FLUSH AFTER USING IV ACCESS Last administered on 12/11/17at 08:20; Start 11/17/17 at 10:15 Lisinopril (Prinivil) 5 mg BID PEG ; Start 11/22/17 at 09:15; Stop 11/23/17 at 11:24; Status DC Metoprolol Tartrate (Lopressor) 50 mg BID PEG Last administered on 11/23/17at 20 :50; Start 11/23/17 at 21:00; Stop 11/24/17 at 12:59; Status DC Metoprolol Tartrate (Lopressor) 25 mg BID PEG Last administered on 12/21/17at 21 :18; Start 11/24/17 at 21:00 Ceftriaxone Sodium 1000 mg/ Sodium Chloride 100 ml @ 200 mls/hr Q24H IV Last administered on 12/22/17at 10:02; Start 12/09/17 at 09:00 Polyethylene Glycol (Miralax) 17 gm DAILY PO Last administered on 12/14/17at 09: 08; Start 12/09/17 at 09:15; Stop 12/16/17 at 17:49; Status DC Hydralazine HCl (Apresoline) 50 mg Q6HR PEG Last administered on 12/12/17at 17:41 ; Start 12/11/17 at 06:00; Stop 12/12/17 at 19:14; Status DC Hydralazine HCl (Apresoline) 50 mg Q8HR PEG Last administered on 12/22/17at 05: 22; Start 12/12/17 at 22:00 Potassium Chloride/Dextrose/ Sod Cl 1,000 ml @ 84 mls/hr [id number] IV Last administered on 12/12/17at 20:40; Start 12/12/17 at 19:15; Stop 12/13/17 at 12:00; Status DC Diatrizoate Meglum/ Diatrizoate Sod ( Gastroview Liq) 120 ml STK-MED ONCE PEG ; Start 12/13/17 at 15:17; Stop 12/13/17 at 15:18; Status DC Potassium Bicarb/ Potassium Chloride (K-Lyte Cl Eff) 25 meq ONCE ONCE PO Last administered on 12/16/17at 09:56; Start 12/16/17 at 10:00; Stop 12/16/17 at 10:24; Status DC Polyethylene Glycol (Miralax) 17 gm DAILY PRN PO SEVERE CONSTIPATION; Start 08/23 at 18:00 Nifedipine (Procardia) 40 mg Q6HR .XX Last administered on 12/22/17at 05:23; Start 12/17/17 at 18:00 Date of Insertion: Nov 08, 2017 A/P Problem List: (1) Major neurocognitive disorder ICD Code: F03.90 - Unspecified dementia without behavioral disturbance (2) Hemiparesis ICD Code: G81.90 - Hemiplegia, unspecified affecting unspecified side Status: Acute (3) Intracranial hemorrhage ICD Code: I62.9 - Nontraumatic intracranial hemorrhage, unspecified Status: Chronic (4) Aphasia ICD Code: R47.01 - Aphasia Assessment and Plan Assessment and Plan Status post hemorrhagic CVA Continue PT, OT, and ST Patient was homeless prior to admit Poor access for inpatient rehabilitation Family desires aggressive measures for therapy and placement Independent funding unavailable for placement Long-term prognosis is poor No significant capacity for regaining full functionality Palliative care following UTI low-grade fevers Replace Cruz at this time Continue Rocephin 1 g IV daily Urine cultures pending. Currently growing gram-negative rods Repeat chest x-ray Dysphagia Related to intracranial bleed history Status post PEG placement on 05/09/17 Continue tube feeding Hypertension emergency Follow blood pressures. Well-controlled at this time Continue the following blood pressure meds: Nifedipine 40 mg every 6 hours Lisinopril 10 mg twice daily Apresoline 50 mg every 6 hours Catapres TTS 3 patch Metoprolol 100 mg twice daily HCTZ 25 mg daily Apresoline, clonidine, Vasotec as needed Hyperglycemia Glucerna for tube feeds Follow blood sugars intermittently Xeroderma on bilateral feet Lac-Hydrin 12% Lotion continued. Coccyx pressure wound, wound vac in place. Wound care following. . Nutrition: Obtain accurate weight, Tube feeds at 40 cc per hour, will reconsult dietary. Discussed with nursing. DVT Prophylaxis: SCDs given history of recent intracranial hemorrhage Discharge Planning PENDING SAFE PLACEMENT AND FAMILY AGREEMENT Harry Vargas DO Dec 22, 2017 14:50
[2017-12-22 16:00] VITALS: BP 130/68; PULSE 80; RESP 20; O2SAT 96
[2017-12-22] MEDS: oxyCODONE/ACETAMINOPHEN 10 MG/325 MG TAB PO PRN (18:56)
[2017-12-22 19:15] VITALS: BP 103/76; PULSE 81; RESP 18; TEMP 97.8; O2SAT 99
[2017-12-23] MEDS: NIFEdipine 10 MG CAP SCH ×5 (00:14→23:09)
[2017-12-23] MEDS: hydrALAZINE HCL 100 MG TAB PEG SCH ×3 (06:02→21:07)
[2017-12-23] MEDS: FREE WATER G-TUBE SCH ×5 (06:03→23:09)
[2017-12-23 07:15] VITALS: BP 113/68; PULSE 90; RESP 20; TEMP 98.3; O2SAT 95
[2017-12-23 08:00] VITALS: BP 90/62
[2017-12-23] MEDS: METOPROLOL TARTRATE 25 MG TAB PEG SCH ×2 (09:00→17:03)
[2017-12-23] MEDS: HYDROCHLOROTHIAZIDE 25 MG TAB PO SCH (09:00)
[2017-12-23 09:23] LABS: AUTOMATED NEUTROPHIL # 5.2 TH/MM3 (1.8-7.7); BASOPHIL % 0.5 % (0.0-2.0); EOSINOPHIL # 0.3 TH/MM3 (0-0.4); EOSINOPHIL % 4.2 % (0.0-4.0); HEMATOCRIT 31.2 % (35.0-46.0); HEMOGLOBIN 10.5 GM/DL (11.6-15.3); LYMPH % 15.2 % (9.0-44.0); LYMPHOCYTE # 1.1 TH/MM3 (1.0-4.8); MEAN CELL VOLUME 82.2 FL (80.0-100.0); MEAN CORPUSCULAR HEMOGLOBIN 27.8 PG (27.0-34.0); MEAN CORPUSCULAR HGB CONC 33.8 % (32.0-36.0); MEAN PLATELET VOLUME 8.3 FL (7.0-11.0); MONOCYTE # 0.7 TH/MM3 (0-0.9); NEUT % 71.1 % (16.0-70.0); PLATELET COUNT 373 TH/MM3 (150-450); RED BLOOD COUNT 3.79 MIL/MM3 (4.00-5.30); WHITE BLOOD COUNT 7.4 TH/MM3 (4.0-11.0)
[2017-12-23] MEDS: oxyCODONE/ACETAMINOPHEN 5 MG/325 MG TAB PO PRN (09:38)
[2017-12-23] MEDS: LANSOPRAZOLE SOLUTAB 30 MG TAB G-TUBE SCH (09:38)
[2017-12-23] MEDS: cefTRIAXone INJ 1,000 MG in SODIUM CHLORIDE 0.9% INJ 100 ML IV SCH (09:39)
[2017-12-23] MEDS: LACTIC ACID (AMMONIUM LACTATE) 12% LOTION 225 GM BTL TOPICAL SCH ×2 (09:39→21:08)
[2017-12-23 09:45] LABS: AST (GOT) 19 U/L (15-37); BICARBONATE 31.3 MEQ/L (21.0-32.0); BLOOD UREA NITROGEN 15 MG/DL (7-18); CHLORIDE 103 MEQ/L (98-107); CREATININE 0.36 MG/DL (0.50-1.00); GLOMERULAR FILTRATION RATE 220 ML/MIN (>89); GLUCOSE,RANDOM 111 MG/DL (74-106); MAGNESIUM 2.4 MG/DL (1.5-2.5); SODIUM (NA) 140 MEQ/L (136-145)
[2017-12-23 09:56] LABS: ALKALINE PHOSPHATASE 71 U/L (45-117); ALT (GPT) 16 U/L (10-53); FREE T4 1.88 NG/DL (0.76-1.46); PHOSPHORUS 2.7 MG/DL (2.5-4.9); TOTAL BILIRUBIN ADULT 0.2 MG/DL (0.2-1.0); TOTAL PROTEIN 7.2 GM/DL (6.4-8.2)
--- NOTE | 2017-12-23 13:22 | HHI.PR ---
Subjective Remarks 2-14Follows some commands, closes eyes, stick out tongue, good hand mail list processor especially on the left. No overnight events per nursing. Tube feeds at 40 cc per hour. 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, FLACCID ON RIGHT AND BL LE AT THIS MOMENT WITH BL FOOT DROP 2-16 HAD ISSUES WITH BLOOD PRESSURE TODAY WILL MONITOR WILL GET AM LABS DW RN AND PATIENT 2-17 BLOOD PRESSURE REMAINS LOW- MULTIPLE BLOOD PRESSURE MEDS HELD TODAY NO FEVERS NO NEW COMPLAINTS Objective Vitals Vital Signs Date Time Temp Pulse Resp B/P (MAP) Pulse Ox O2 Delivery O2 Flow Rate FiO2 12/23/17 07:15 98.3 90 20 113/68 (83) 95 12/22/17 19:15 97.8 81 18 103/76 (85) 99 12/22/17 16:00 80 20 130/68 (88) 96 12/22/17 14:00 62 20 96/54 (68) 96 I/O 12/22/17 12/22/17 12/22/17 12/23/17 12/23/17 12/23/17 07:00 15:00 23:00 07:00 15:00 23:00 Intake Total 1180 ml 780 ml 804 ml Output Total 600 ml 0 ml 350.0 ml 400 ml 0 ml Balance 580 ml 0 ml 430.0 ml 404 ml 0 ml Intake Oral 0 ml Tube Feeding 480 ml 480 ml 474 ml Tube Irrigant 30 ml Other 700 ml 300 ml 300 ml Output Urine Total 600 ml 350 ml 400 ml Tube Feeding Residual Discard 0 ml 0 ml 0 ml Drainage Total 0 ml # Bowel Movements 0 0 1 Result Diagram: 12/23/17 0830 12/23/17 0847 Other Results Laboratory Tests Test 12/23/17 08:30 12/23/17 08:47 White Blood Count 7.4 TH/MM3 Red Blood Count 3.79 MIL/MM3 Hemoglobin 10.5 GM/DL Hematocrit 31.2 % Mean Corpuscular Volume 82.2 FL Mean Corpuscular Hemoglobin 27.8 PG Mean Corpuscular Hemoglobin Concent 33.8 % Red Cell Distribution Width 15.0 % Platelet Count 373 TH/MM3 Mean Platelet Volume 8.3 FL Neutrophils (%) (Auto) 71.1 % Lymphocytes (%) (Auto) 15.2 % Monocytes (%) (Auto) 9.0 % Eosinophils (%) (Auto) 4.2 % Basophils (%) (Auto) 0.5 % Neutrophils # (Auto) 5.2 TH/MM3 Lymphocytes # (Auto) 1.1 TH/MM3 Monocytes # (Auto) 0.7 TH/MM3 Eosinophils # (Auto) 0.3 TH/MM3 Basophils # (Auto) 0.0 TH/MM3 CBC Comment DIFF FINAL Differential Comment Blood Urea Nitrogen 15 MG/DL Creatinine 0.36 MG/DL Random Glucose 111 MG/DL Total Protein 7.2 GM/DL Albumin 3.0 GM/DL Calcium Level 9.0 MG/DL Phosphorus Level 2.7 MG/DL Magnesium Level 2.4 MG/DL Alkaline Phosphatase 71 U/L Aspartate Amino Transf (AST/SGOT) 19 U/L Alanine Aminotransferase (ALT/SGPT) 16 U/L Total Bilirubin 0.2 MG/DL Sodium Level 140 MEQ/L Potassium Level 3.9 MEQ/L Chloride Level 103 MEQ/L Carbon Dioxide Level 31.3 MEQ/L Anion Gap 6 MEQ/L Estimat Glomerular Filtration Rate 220 ML/MIN Free Thyroxine 1.88 NG/DL Thyroid Stimulating Hormone 3rd Gen 1.270 uIU/ML Imaging Last Impressions Abdomen X-Ray 12/13/17 0000 Signed Impressions: Service Date/Time: Wednesday, December 13, 2017 14:17 - CONCLUSION: PEG tube in stomach.. Harry Dumas MD FACR Chest X-Ray 12/11/17 0000 Signed Impressions: Service Date/Time: Monday, December 11, 2017 11:21 - CONCLUSION: Minimal patchiness within the right lung base. Stable cardiomegaly. Degenerative changes and scoliosis of the thoracic spine. Denny Hart MD Upper Extremity Ultrasound 11/06/17 0000 Signed Impressions: Service Date/Time: Monday, November 06, 2017 14:17 - CONCLUSION: Normal examination. K. Byron Perez MD Pelvis CT 10/13/17 0000 Signed Impressions: Service Date/Time: Friday, October 13, 2017 12:02 - CONCLUSION: 1. Decubitus ulcer with small abscess in the right posterior perineal region measuring 3.1 x 4.6 cm. There is also a small abscess posterior and to the left of the rectum measuring 3.2 x 2.3 cm. Jann Weber MD Head CT 04/25/17 0000 Signed Impressions: Service Date/Time: Tuesday, April 25, 2017 18:02 - CONCLUSION: 1. Evolving left thalamic hematoma. No new hemorrhage. Adi Quarles MD Neck CTA 04/10/17 0000 Signed Impressions: Service Date/Time: Monday, April 10, 2017 22:28 - CONCLUSION: The internal carotid arteries are normal bilaterally. No significant atherosclerotic disease is noted. Eliud Du MD Head CTA 04/10/17 0000 Signed Impressions: Service Date/Time: Monday, April 10, 2017 22:50 - CONCLUSION: Mild dilatation of the basilar tip without discrete aneurysm. Some narrowing of the left middle cerebral branch after the bifurcation. Prominent left thalamic hemorrhage. Eliud Du MD Objective Remarks GENERAL: Patient lying in CHAIR, appears comfortable -HER VOICE IS very soft- spoken can be heard with my stethoscope only SKIN: Warm and dry. HEAD: Atraumatic. Normocephalic. EYES: Pupils equal and round. No scleral icterus. No injection or drainage. ENT: No nasal bleeding or discharge. Mucous membranes pink and moist. NECK: Trachea midline. No JVD. Supple CARDIOVASCULAR: Regular rate and rhythm. S1 and S2 no S3 or S4 RESPIRATORY: No accessory muscle use. Clear to auscultation. Breath sounds equal bilaterally. GASTROINTESTINAL: Abdomen soft, non-tender, nondistended. Hepatic and splenic margins not palpable. PEG tube in place--Cruz catheter in place MUSCULOSKELETAL: Extremities without clubbing, cyanosis, or edema. No obvious deformities. Has bilateral foot drop and right upper extremity flaccid can move left upper extremity with good mail list processor strength NEUROLOGICAL: Awake and alert. No obvious cranial nerve deficits. Normal speech but very very soft. PSYCHIATRIC: Appropriate mood and affect; insight and judgment ABnormal. Procedures Peg Tube placed 05/08/17 (Dr. De Los Santos) Medications and IVs Current Medications Sodium Chloride (NS Flush) 2 ml UNSCH PRN IVF FLUSH AFTER USING IV ACCESS; Start 04/10/17 at 20:00; Stop 04/10/17 at 22:12; Status DC Nicardipine HCl 25 mg/Sodium Chloride 260 ml @ 0 mls/hr TITRATE IV Last administered on 04/10/17t 21:34; Start 04/10/17 at 20:00; Stop 04/10/17 at 22:12; Status DC Sodium Chloride 1,000 ml @ 84 mls/hr [id number] IV Last administered on 04/11/17 07:47; Start 04/10/17 at 22:00; Stop 04/11/17 at 15:41; Status DC Sodium Chloride (NS Flush) 2 ml UNSCH PRN .XX FLUSH AFTER USING IV ACCESS Last administered on 05/01/17 04:49; Start 04/10/17 at 22:00; Stop 05/26/17 at 10:07 ; Status DC Sodium Chloride (NS Flush) 2 ml BID .XX Last administered on 05/26/17 09:54; Start 04/11/17 at 09:00; Stop 05/26/17 at 10:07; Status DC Acetaminophen (Tylenol) 650 mg Q6H PRN PO PAIN 1-10 AND/OR FEVER >101F Last administered on 04/26/17 13:46; Start 04/10/17 at 22:00; Stop 06/16/17 at 10:03 ; Status DC Morphine Sulfate (Morphine Inj) 2 mg Q2H PRN IV PAIN SCALE 6 TO 10 Last administered on 05/25/17 21:09; Start 04/10/17 at 22:00; Stop 05/26/17 at 10:07 ; Status DC Famotidine (Pepcid Inj) 20 mg Q12HR IV PUSH Last administered on 05/04/17 08: 37; Start 04/11/17 at 09:00; Stop 05/04/17 at 14:13; Status DC Ondansetron HCl (Zofran Inj) 4 mg Q6H PRN IV NAUSEA OR VOMITING; Start 04/10/17 at 22:00; Stop 05/26/17 at 10:07; Status DC Metoclopramide HCl (Reglan Inj) 10 mg Q6H PRN IV NAUSEA OR VOMITING; Start 04/10 at 22:00; Stop 05/26/17 at 10:07; Status DC Prochlorperazine (Compazine Supp) 25 mg Q12H PRN RECTAL NAUSEA OR VOMITING; Start 04/10/17 at 22:00; Stop 05/26/17 at 10:07; Status DC Albuterol/ Ipratropium (Duoneb Neb) 1 ampule Q2HR NEB PRN INH WHEEZING; Start 04/10/17 at 22:00; Stop 05/26/17 at 10:07; Status DC Miscellaneous Information 1 [id number] XX Last administered on 04/10/17 22:00; Start 04/10/17 at 22:00; Stop 05/26/17 at 10:07; Status DC Chlorhexidine Gluconate (Chlorhexidine 2% Cloth) Taper DAILY@04 TOP Last administered on 05/21/17 04:00; Start 04/11/17 at 04:00; Stop 05/26/17 at 10:07 ; Status DC Chlorhexidine Gluconate (Chlorhexidine 2% Cloth) 3 pack UNSCH PRN TOP HYGIENIC CARE; Start 04/10/17 at 22:00; Stop 05/26/17 at 10:07; Status DC Senna/Docusate Sodium (Evelyn-Colace) 1 tab BID PO Last administered on 09:20; Start 04/11/17 at 09:00; Stop 06/16/17 at 10:03; Status DC Magnesium Hydroxide (Milk Of Magnesia Liq) 30 ml Q12H PRN PO MILD - MODERATE CONSTIPATION; Start 04/10/17 at 22:00; Stop 05/26/17 at 10:07; Status DC Sennosides (Senokot) 17.2 mg Q12H PRN PO MODERATE - SEVERE CONSTIPATION Last administered on 05/08/17 21:29; Start 04/10/17 at 22:00; Stop 05/26/17 at 10:07; Status DC Bisacodyl (Dulcolax Supp) 10 mg DAILY PRN RECTAL SEVERE CONSITIPATION; Start at 22:00 Lactulose (Lactulose Liq) 30 ml DAILY PRN PO SEVERE CONSITIPATION Last administered on 04/24/17 08:44; Start 04/10/17 at 22:00; Stop 06/16/17 at 10:03 ; Status DC Nicardipine HCl 25 mg/Sodium Chloride 260 ml @ 0 mls/hr TITRATE IV Last administered on 04/14/17 04:35; Start 04/10/17 at 22:15; Stop 04/14/17 at 12:18; Status DC Iohexol (Omnipaque 350 Inj) 70 ml STK-MED ONCE IV Last administered on 22:35; Start 04/10/17 at 22:35; Stop 04/10/17 at 22:36; Status DC Labetalol HCl (Trandate Inj) 20 mg Q4H PRN IV PUSH sbp>160 Last administered on 04/17/17 02:24; Start 04/12/17 at 08:15; Stop 04/25/17 at 18:06; Status DC Hydralazine HCl (Apresoline Inj) 20 mg Q4H PRN IV PUSH sbp>150 Last administered on 05/17/17 20:39; Start 04/12/17 at 08:15; Stop 05/18/17 at 14:44 ; Status DC Amlodipine Besylate (Norvasc) 5 mg DAILY PO Last administered on 04/14/17 08:55 ; Start 04/12/17 at 09:00; Stop 04/15/17 at 06:44; Status DC Metoclopramide HCl (Reglan Inj) 5 mg Q8HR IV PUSH Last administered on 14:02; Start 04/12/17 at 16:00; Stop 05/04/17 at 14:13; Status DC Potassium Chloride 100 ml @ 50 mls/hr Q2H PRN IV For Potassium 2.8 - 3.2 mEq/L ; Start 04/13/17 at 11:45; Stop 04/25/17 at 11:32; Status DC Potassium Chloride 100 ml @ 50 mls/hr Q2H PRN IV For Potassium 2.8 - 3.2 mEq/ L Last administered on 04/14/17 13:06; Start 04/13/17 at 11:45; Stop 04/25/17 at 11:32; Status DC Potassium Bicarb/ Potassium Chloride (K-Lyte Cl Eff) 50 meq UNSCH PRN PO For Potassium 3.3 - 3.5 mEq/L Last administered on 04/19/17 14:03; Start 04/13/17 at 11:45; Stop 04/25/17 at 11:32; Status DC Potassium Chloride 100 ml @ 25 mls/hr UNSCH PRN IV For Potassium 3.3 - 3.5 mEq /L; Start 04/13/17 at 11:45; Stop 04/25/17 at 11:32; Status DC Potassium Chloride 100 ml @ 50 mls/hr Q2H PRN IV For Potassium 3.3 - 3.5 mEq/L ; Start 04/13/17 at 11:45; Stop 04/25/17 at 11:32; Status DC Magnesium Sulfate 4 gm/Sodium Chloride 100 ml @ 50 mls/hr UNSCH PRN IV For Magnesium 0.9 - 1.1 mg/dL; Start 04/13/17 at 11:45; Stop 04/25/17 at 11:32; Status DC Magnesium Oxide (Mag-Ox) 800 mg UNSCH PRN PO For Magnesium 1.2 - 1.6 mg/dL; Start 04/13/17 at 11:45; Stop 04/25/17 at 11:32; Status DC Magnesium Sulfate 2 gm/Sodium Chloride 100 ml @ 50 mls/hr UNSCH PRN IV For Magnesium 1.2 - 1.6 mg/dL; Start 04/13/17 at 11:45; Stop 04/25/17 at 11:32; Status DC Potassium Phosphate (K-Phos) 2,000 mg Q4H PRN PO For Phosphorus < 2.5 mg/dL; Start 04/13/17 at 11:45; Stop 04/25/17 at 11:32; Status DC Sodium Phosphate 30 mmol/Sodium Chloride 250 ml @ 42 mls/hr UNSCH PRN IV For Phosphorus < 2.5 mg/dL; Start 04/13/17 at 11:45; Stop 04/25/17 at 11:32; Status DC Potassium Phosphate (K-Phos) 2,000 mg UNSCH PRN PO/TUBE SEE LABEL COMMENTS; Start 04/13/17 at 11:45; Stop 04/25/17 at 11:32; Status DC Potassium Phosphate 30 mmol/ Sodium Chloride 260 ml @ 42 mls/hr UNSCH PRN IV SEE LABEL COMMENTS; Start 04/13/17 at 11:45; Stop 04/25/17 at 11:32; Status DC Metoprolol Tartrate (Lopressor) 25 mg Q8HR PO Last administered on 04/14/17 05: 40; Start 04/13/17 at 14:00; Stop 04/14/17 at 12:18; Status DC Hydralazine HCl (Apresoline) 50 mg Q8H PO Last administered on 04/14/17 03:23; Start 04/13/17 at 12:00; Stop 04/14/17 at 09:23; Status DC Hydralazine HCl (Apresoline) 100 mg Q8H PO Last administered on 04/14/17 11:25 ; Start 04/14/17 at 12:00; Stop 04/14/17 at 19:47; Status DC Metoprolol Tartrate (Lopressor) 50 mg Q8HR PO Last administered on 04/24/17 05 :27; Start 04/14/17 at 14:00; Stop 04/24/17 at 09:28; Status DC Hydralazine HCl (Apresoline Inj) 20 mg ONCE ONCE IV PUSH Last administered on 04/14/17 17:42; Start 04/14/17 at 17:15; Stop 04/14/17 at 17:32; Status DC Labetalol HCl (Trandate Inj) 10 mg ONCE ONCE IV PUSH Last administered on 17:42; Start 04/14/17 at 17:15; Stop 04/14/17 at 17:32; Status DC Clonidine (Catapres) 0.3 mg ONCE ONCE PO Last administered on 04/14/17 17:50; Start 04/14/17 at 17:15; Stop 04/14/17 at 17:32; Status DC Clonidine (Catapres) 0.2 mg Q8HR PO ; Start 04/14/17 at 22:00; Stop 04/14/17 at 22 :00; Status DC Clonidine (Catapres) 0.3 mg Q8HR PO Last administered on 04/26/17 05:55; Start 04/14/17 at 22:00; Stop 04/26/17 at 14:39; Status DC Hydralazine HCl (Apresoline) 100 mg Q6HR PO Last administered on 04/15/17 10: 39; Start 04/15/17 at 00:00; Stop 04/15/17 at 13:10; Status DC Amlodipine Besylate (Norvasc) 10 mg DAILY PO Last administered on 06/12/17 07: 39; Start 04/14/17 at 19:45; Stop 06/12/17 at 07:56; Status DC Enalaprilat (Vasotec Inj) 1.25 mg Q6H PRN IV PUSH SBP>160, DBP>90 Last administered on 05/13/17 01:22; Start 04/15/17 at 01:15; Stop 05/26/17 at 10:07 ; Status DC Nitroglycerin (Nitroglycerin 2% Oint) 2 inch Q6HR PRN TOPICAL SBP>160, DBP>90 Last administered on 04/16/17 12:34; Start 04/15/17 at 06:00; Stop 05/26/17 at 10:07; Status DC Hydralazine HCl (Apresoline) 100 mg Q8HR PO Last administered on 04/26/17 05: 55; Start 04/15/17 at 14:00; Stop 04/26/17 at 14:39; Status DC Lisinopril (Prinivil) 20 mg DAILY PO Last administered on 04/16/17 08:32; Start 04/15/17 at 13:30; Stop 04/16/17 at 14:58; Status DC Lisinopril (Prinivil) 20 mg ONCE ONCE PO Last administered on 04/16/17 15:27 ; Start 04/16/17 at 15:00; Stop 04/16/17 at 15:03; Status DC Lisinopril (Prinivil) 40 mg BID PO Last administered on 04/20/17 09:09; Start 04/16/17 at 21:00; Stop 04/20/17 at 16:42; Status DC Hydrochlorothiazide (Hydrodiuril) 25 mg DAILY PO Last administered on 08:59; Start 04/17/17 at 17:45; Stop 04/18/17 at 16:28; Status DC Hydrochlorothiazide (Hydrodiuril) 25 mg ONCE ONCE PO Last administered on 04/18 16:51; Start 04/18/17 at 16:30; Stop 04/18/17 at 16:32; Status DC Hydrochlorothiazide (Hydrodiuril) 50 mg DAILY PO Last administered on 08:50; Start 04/19/17 at 09:00; Stop 04/25/17 at 18:06; Status DC Lisinopril (Prinivil) 30 mg BID PO Last administered on 04/25/17 08:50; Start 04/20/17 at 21:00; Stop 04/25/17 at 18:06; Status DC Miscellaneous (Pill Splitter) 1 ea UNSCH PRN OTHER SEE LABEL COMMENTS; Start at 17:15; Stop 10/18/17 at 09:37; Status DC Ceftriaxone Sodium 1000 mg/ Sodium Chloride 100 ml @ 200 mls/hr HS IV Last administered on 04/29/17 22:04; Start 04/22/17 at 21:30; Stop 04/30/17 at 12:37 ; Status DC Metoprolol Tartrate (Lopressor) 50 mg BID PO Last administered on 05/26/17 09: 54; Start 04/24/17 at 21:00; Stop 05/26/17 at 10:12; Status DC Lisinopril (Prinivil) 20 mg DAILY PO Last administered on 04/27/17 09:52; Start 04/26/17 at 09:00; Stop 04/28/17 at 00:21; Status DC Clonidine (Catapres) 0.2 mg Q8HR PO Last administered on 05/26/17 05:57; Start 04/26/17 at 22:00; Stop 05/26/17 at 10:12; Status DC Hydralazine HCl (Apresoline) 50 mg Q8HR PO Last administered on 04/27/17 12:45 ; Start 04/26/17 at 22:00; Stop 04/27/17 at 15:31; Status DC Hydralazine HCl (Apresoline) 100 mg Q8HR PO Last administered on 06/10/17 06:18 ; Start 04/27/17 at 22:00; Stop 06/10/17 at 12:03; Status DC Lisinopril (Prinivil) 40 mg DAILY PO Last administered on 06/16/17 09:20; Start 04/28/17 at 09:00; Stop 06/16/17 at 10:03; Status DC Famotidine (Pepcid) 20 mg BID NG Last administered on 05/09/17 09:36; Start at 21:00; Stop 05/09/17 at 12:49; Status DC Lactic Acid (Lac-Hydrin 12% Lotion) 1 applic BID TOPICAL Last administered on at 09:39; Start 05/04/17 at 14:00 Cefazolin Sodium 1000 mg/Sodium Chloride 100 ml @ 200 mls/hr FLASK PUSHER IV ; Start 05/06/17 at 10:30; Stop 05/09/17 at 10:29; Status DC Cefazolin Sodium (Ancef Inj) 1,000 mg STK-MED ONCE IV Last administered on 15:00; Start 05/08/17 at 15:00; Stop 05/08/17 at 15:08; Status DC Propofol (Diprivan 200 Mg/20 ml Inj) 150 mg STK-MED ONCE IV PUSH ; Start at 15:27; Stop 05/08/17 at 15:45; Status DC Lansoprazole (Prevacid Odt) 30 mg DAILY G-TUBE Last administered on 12/23/17at 09:38; Start 05/10/17 at 09:00 Nystatin (Mycostatin Liq) 5 ml QID SWISH-SWAL Last administered on 05/22/17 09:36; Start 05/14/17 at 13:00; Stop 05/22/17 at 11:19; Status DC Hydralazine HCl (Apresoline) 25 mg Q4HR PRN PEG for sbp greater than 150 Last administered on 11/04/17 14:28; Start 05/18/17 at 14:45 Clonidine (Catapres) 0.1 mg Q6H PRN PO for SBP greater than 170 Last administered on 05/22/17 02:48; Start 05/21/17 at 07:30; Stop 05/26/17 at 10:12 ; Status DC Nystatin (Mycostatin Liq) 5 ml QID SWISH-SWAL Last administered on 05/28/17 09:43; Start 05/23/17 at 13:00; Stop 05/28/17 at 10:02; Status DC Ondansetron HCl (Zofran Liq) 4 mg Q6H PRN PEG NAUSEA OR VOMITING; Start at 10:00 Metoprolol Tartrate (Lopressor) 75 mg BID PO Last administered on 05/28/17 09: 43; Start 05/26/17 at 21:00; Stop 05/28/17 at 09:58; Status DC Clonidine (Catapres-Tts 0.2 Mg Patch.7d) 1 patch Q7D T-DERMAL Last administered on 06/02/17 11:27; Start 05/26/17 at 12:00; Stop 06/06/17 at 12:47 ; Status DC Miscellaneous Information 1 Q7D T-DERMAL Last administered on 06/02/17 11:28; Start 06/02/17 at 12:00; Stop 06/06/17 at 13:31; Status DC Metoprolol Tartrate (Lopressor) 100 mg BID PO Last administered on 06/16/17 09 :20; Start 05/28/17 at 21:00; Stop 06/16/17 at 10:03; Status DC Fluconazole (Diflucan) 200 mg DAILY PO Last administered on 06/03/17 08:44; Start 05/28/17 at 11:00; Stop 06/04/17 at 08:59; Status DC Levofloxacin (Levaquin Liq) 750 mg Q24H PEG ; Start 05/29/17 at 11:00; Stop at 15:05; Status DC Levofloxacin (Levaquin Liq) 750 mg DAILY@16 PEG Last administered on 16:20; Start 05/29/17 at 16:00; Stop 06/04/17 at 16:01; Status DC Sodium Chloride 500 ml @ 500 mls/hr BOLUS ONCE IV Last administered on 15:43; Start 06/01/17 at 11:30; Stop 06/01/17 at 12:29; Status DC Sodium Chloride 1,000 ml @ 100 mls/hr Q10H IV Last administered on 06/03/17 06:17; Start 06/02/17 at 11:15; Stop 06/03/17 at 10:16; Status DC Clonidine (Catapres-Tts 0.3 Mg Patch.7d) 1 patch Q7D T-DERMAL Last administered on 12/19/17 17:32; Start 06/06/17 at 15:00 Miscellaneous Information 1 Q7D T-DERMAL Last administered on 12/19/17 15:00; Start 06/06/17 at 15:00 Hydralazine HCl (Apresoline) 100 mg Q6HR PO Last administered on 06/16/17 06: 20; Start 06/10/17 at 18:00; Stop 06/16/17 at 10:03; Status DC Nifedipine (Procardia Xl) 60 mg DAILY PO Last administered on 06/15/17 10:04; Start 06/12/17 at 09:00; Stop 06/16/17 at 10:03; Status DC Acetaminophen (Tylenol) 650 mg Q6H PRN PEG PAIN 1-10 AND/OR FEVER >101F Last administered on 10/17/17 19:29; Start 06/16/17 at 16:00; Status Future Hold Senna/Docusate Sodium (Evelyn-Colace) 1 tab BID PEG Last administered on 09:42; Start 06/16/17 at 21:00; Stop 06/28/17 at 10:38; Status DC Hydralazine HCl (Apresoline) 100 mg Q6HR PEG Last administered on 08/17/17 22 :43; Start 06/16/17 at 12:00; Stop 08/18/17 at 07:50; Status DC Lactulose (Lactulose Liq) 30 ml DAILY PRN PEG SEVERE CONSITIPATION; Start 06/16 at 10:00; Stop 08/17/17 at 08:28; Status DC Lisinopril (Prinivil) 40 mg DAILY PEG Last administered on 08/16/17 08:04; Start 06/17/17 at 09:00; Stop 08/18/17 at 07:50; Status DC Metoprolol Tartrate (Lopressor) 100 mg BID PEG Last administered on 11/21/17at 21:41; Start 06/16/17 at 21:00; Stop 11/23/17 at 11:24; Status DC Nifedipine (Procardia) 20 mg Q8HR PEG Last administered on 06/20/17 05:41; Start 06/16/17 at 14:00; Stop 06/20/17 at 14:35; Status DC Nifedipine (Procardia) 30 mg Q8HR .XX Last administered on 06/22/17 13:13; Start 06/20/17 at 22:00; Stop 06/22/17 at 13:14; Status DC Nifedipine (Procardia) 30 mg Q6HR .XX Last administered on 06/26/17 06:32; Start 06/22/17 at 18:00; Stop 06/26/17 at 11:22; Status DC Nifedipine (Procardia) 40 mg Q6HR PEG Last administered on 12/17/17at 11:55; Start 06/26/17 at 12:00; Stop 12/17/17 at 18:00; Status DC Sennosides (Senna Liq) 8.8 mg DAILY PEG Last administered on 10/17/17 10:02 ; Start 06/29/17 at 09:00; Status Future Hold Hydrochlorothiazide (Hydrodiuril) 25 mg DAILY PO Last administered on 07/07/17 08:49; Start 07/01/17 at 12:00; Stop 07/07/17 at 11:21; Status DC Hydrochlorothiazide (Hydrodiuril) 25 mg BID@ PEG Last administered on 07/21 17:17; Start 07/07/17 at 18:00; Stop 07/28/17 at 15:04; Status DC Potassium Bicarb/ Potassium Chloride (K-Lyte Cl Eff) 25 meq DAILY PEG Last administered on 07/22/17 09:54; Start 07/07/17 at 11:30; Stop 07/28/17 at 15:04 ; Status DC Hydrochlorothiazide (Hydrodiuril) 25 mg DAILY PO Last administered on 08:04; Start 08/04/17 at 12:30; Stop 08/18/17 at 07:50; Status DC Nystatin (Mycostatin Liq) 5 ml QID OTHER Last administered on 08/21/17 17:54 ; Start 08/13/17 at 18:00; Stop 08/21/17 at 18:00; Status DC Polyethylene Glycol (Miralax) 17 gm DAILY PRN PO severe constipation Last administered on 08/30/17 23:22; Start 08/17/17 at 08:30; Stop 12/09/17 at 09: 10; Status DC Hydralazine HCl (Apresoline) 100 mg Q8HR PEG Last administered on 08/19/17 06 :38; Start 08/18/17 at 14:00; Stop 08/19/17 at 07:53; Status DC Lisinopril (Prinivil) 20 mg BID PEG ; Start 08/18/17 at 09:00; Stop 08/19/17 at 07:53; Status DC Hydralazine HCl (Apresoline) 50 mg Q6HR PEG Last administered on 12/10/17 23:28 ; Start 08/19/17 at 12:00; Stop 12/11/17 at 04:19; Status DC Lisinopril (Prinivil) 10 mg BID PEG Last administered on 11/15/17 08:28; Start 08/19/17 at 09:00; Stop 11/15/17 at 10:41; Status DC Hydrochlorothiazide (Hydrodiuril) 25 mg DAILY PO Last administered on 17:12; Start 08/20/17 at 15:00; Stop 08/21/17 at 08:35; Status DC Nystatin (Mycostatin Liq) 5 ml QID OTHER Last administered on 09/02/17 21:12 ; Start 08/23/17 at 18:00; Stop 09/03/17 at 09:51; Status DC Hydrochlorothiazide (Hydrodiuril) 25 mg DAILY PO Last administered on 10:34; Start 08/29/17 at 11:15; Stop 09/03/17 at 09:51; Status DC Hydrochlorothiazide (Microzide) 12.5 mg DAILY PO Last administered on 09:03; Start 09/04/17 at 09:00; Stop 09/04/17 at 13:23; Status DC Nystatin (Mycostatin Liq) 5 ml QID SWISH-SWAL Last administered on 10/17/17 14:28; Start 09/07/17 at 13:00; Stop 10/17/17 at 15:32; Status DC Hydrochlorothiazide (Microzide) 12.5 mg DAILY PO Last administered on 08:12; Start 09/15/17 at 11:45; Stop 09/27/17 at 09:00; Status DC Hydrochlorothiazide (Hydrodiuril) 25 mg DAILY PO Last administered on 09:41; Start 09/27/17 at 09:15; Status Future hold Vancomycin HCl 1000 mg/Sodium Chloride 250 ml @ 250 mls/hr ONCE ONCE IV Last administered on 10/10/17 11:28; Start 10/10/17 at 10:00; Stop 10/10/17 at 10:59 ; Status DC Pharmacy Profile Note 0 ml @ 0 mls/hr UNSCH OTHER ; Start 10/10/17 at 09:00; Stop 10/17/17 at 15:26; Status DC Potassium Bicarb/ Potassium Chloride (K-Lyte Cl Eff) 50 meq ONCE ONCE PEG Last administered on 10/10/17 10:14; Start 10/10/17 at 09:30; Stop 10/10/17 at 09:31; Status DC Vancomycin HCl 1250 mg/Sodium Chloride 262.5 ml @ 250 mls/hr Q12H IV Last administered on 10/11/17 18:08; Start 10/10/17 at 18:00; Stop 10/11/17 at 21:55 ; Status DC Miscellaneous Information SPECIFIC LAB TO BE DRAWN:VANCO TROUGH DATE TO BE DRLanre.Lanre ONCE ONCE .XX Last administered on 10/11/17 17:20; Start 10/11/17 at 17 :45; Stop 10/11/17 at 17:46; Status DC Piperacillin Sod/ Tazobactam Sod 50 ml @ 100 mls/hr Q6HR IV ; Start 10/10/17 at 12:00; Stop 10/10/17 at 14:07; Status DC Piperacillin Sod/ Tazobactam Sod 50 ml @ 100 mls/hr Q6HR IV Last administered on 10/22/17 05:38; Start 10/10/17 at 15:00; Stop 10/22/17 at 08:29; Status DC Vancomycin HCl 1000 mg/Sodium Chloride 250 ml @ 250 mls/hr Q12H IV Last administered on 10/14/17 06:03; Start 10/12/17 at 06:00; Stop 10/14/17 at 13:01 ; Status DC Miscellaneous Information SPECIFIC LAB TO BE BEKA... ONCE ONCE .XX Last administered on 10/14/17 05:45; Start 10/14/17 at 05:45; Stop 10/14/17 at 05:46 ; Status DC Collagenase (Santyl Oint) 1 applic BID TOPICAL Last administered on 10/18/17 21:00; Start 10/12/17 at 09:00; Stop 10/19/17 at 08:47; Status DC Potassium Chloride/Sodium Chloride 1,000 ml @ 100 mls/hr Q10H IV Last administered on 10/16/17 20:57; Start 10/13/17 at 09:00; Stop 10/17/17 at 04: 36; Status DC Fluconazole/ Sodium Chloride 100 ml @ 100 mls/hr Q24H IV Last administered on 10/15/17 12:49; Start 10/13/17 at 12:00; Stop 10/16/17 at 07:19; Status DC Iohexol (Omnipaque 350 Inj) 85 ml STK-MED ONCE IVCONTRAST Last administered on 10/13/17 12:29; Start 10/13/17 at 12:29; Stop 10/13/17 at 12:30; Status DC Potassium Chloride 100 ml @ 50 mls/hr Q2H IV Last administered on 10/14/17 12 :51; Start 10/14/17 at 08:30; Stop 10/14/17 at 12:29; Status DC Potassium Bicarb/ Potassium Chloride (K-Lyte Cl Eff) 50 meq ONCE ONCE PEG Last administered on 10/14/17 10:48; Start 10/14/17 at 08:15; Stop 10/14/17 at 08:17; Status DC Vancomycin HCl 1250 mg/Sodium Chloride 262.5 ml @ 250 mls/hr Q12H IV Last administered on 10/14/17 18:20; Start 10/14/17 at 18:00; Stop 10/15/17 at 09: 15; Status DC Miscellaneous Information SPECIFIC LAB TO BE DRAWN:VANCO TROUGH DATE TO BE DRLanre.Lanre ONCE ONCE .XX ; Start 10/16/17 at 05:45; Stop 10/16/17 at 05:46; Status Cancel Potassium Bicarb/ Potassium Chloride (K-Lyte Cl Eff) 50 meq ONCE ONCE PO Last administered on 10/15/17 11:45; Start 10/15/17 at 10:00; Stop 10/15/17 at 10:01; Status DC Vancomycin HCl 1250 mg/Sodium Chloride 262.5 ml @ 250 mls/hr Q12H IV Last administered on 10/17/17 10:01; Start 10/15/17 at 10:00; Stop 10/17/17 at 15 :26; Status DC Miscellaneous Information SPECIFIC LAB TO BE DRAWN:VANCOMYCIN TROUGH DATE TO... ONCE ONCE .XX Last administered on 10/16/17 21:45; Start 10/16/17 at 21:45 ; Stop 10/16/17 at 21:46; Status DC Ciprofloxacin (Cipro) 500 mg Q12HR PEG Last administered on 10/18/17 21:00; Start 10/16/17 at 09:00; Stop 10/19/17 at 09:14; Status DC Potassium Chloride/Sodium Chloride 1,000 ml @ 100 mls/hr Q10H IV Last administered on 10/17/17 10:02; Start 10/17/17 at 08:00; Stop 10/17/17 at 18 :32; Status DC Hydromorphone HCl (Dilaudid Pf Inj) 2 mg ONCE ONCE IV PUSH Last administered on 10/17/17 12:50; Start 10/17/17 at 12:15; Stop 10/17/17 at 12:16; Status DC Sodium Hypochlorite (Dakin'S 0.5% Soln) 500 ml ONCE ONCE TOPICAL Last administered on 10/17/17 14:28; Start 10/17/17 at 13:30; Stop 10/17/17 at 13 :35; Status DC Sodium Hypochlorite (Dakin'S 0.25% Soln) 50 ml BID TOPICAL Last administered on 10/18/17 21:00; Start 10/17/17 at 21:00; Stop 10/19/17 at 08:47; Status DC Morphine Sulfate (Morphine Inj) 2 mg BID PRN IV PUSH painful dressing changes Last administered on 10/20/17 09:23; Start 10/17/17 at 15:00; Stop 10/20/17 at 16:23; Status DC Benztropine Mesylate (Cogentin Inj) 0.5 mg HS IV PUSH ; Start 10/17/17 at 21:00 ; Stop 10/17/17 at 21:00; Status DC Naloxone HCl (Narcan Inj) 0.4 mg UNSCH X1 PRN IV PUSH RESP DEPRESSION OR HYPOTENSION; Start 10/17/17 at 17:30; Stop 10/20/17 at 17:29; Status DC Baclofen (Lioresal) 5 mg ONCE ONCE PO Last administered on 10/17/17 17:45; Start 10/17/17 at 17:45; Stop 10/17/17 at 17:46; Status DC Miscellaneous (Pill Splitter) 1 ea UNSCH PRN OTHER SEE LABEL COMMENTS Last administered on 12/08/17 20:45; Start 10/17/17 at 17:45 Sodium Chloride 1,000 ml @ 42 mls/hr [id number] IV Last administered on 06:00; Start 10/18/17 at 10:00; Stop 10/24/17 at 15:36; Status DC Collagenase (Santyl Oint) 1 applic BID TOPICAL Last administered on 11/14/17 07 :57; Start 10/19/17 at 10:00; Stop 11/17/17 at 09:01; Status DC Water (Free Water) 150 ml Q6HR G-TUBE Last administered on 12/23/17 12:06; Start 10/19/17 at 12:00 Morphine Sulfate (Morphine Inj) 2 mg BID PRN IV PUSH painful dressing changes Last administered on 10/22/17 09:40; Start 10/20/17 at 16:30; Stop 10/23/17 at 17:45; Status DC Sodium Chloride 500 ml @ 50 mls/hr Q10H IV ; Start 10/20/17 at 17:30; Stop at 17:56; Status DC Sodium Chloride 500 ml @ 1,000 mls/hr BOLUS ONCE IV Last administered on 18:00; Start 10/20/17 at 18:00; Stop 10/20/17 at 18:29; Status DC Diphenhydramine HCl (Benadryl Liq) 50 mg ONCE ONCE PO Last administered on 01:05; Start 10/22/17 at 00:15; Stop 10/22/17 at 00:18; Status DC Piperacillin Sod/ Tazobactam Sod 3.375 gm/Sodium Chloride 100 ml @ 100 mls/hr Q6HR IV Last administered on 10/23/17 17:24; Start 10/22/17 at 12:00; Stop 10/23/17 at 17:45; Status DC Diphenhydramine HCl (Benadryl Inj) 25 mg ONCE ONCE IM Last administered on 17:54; Start 10/23/17 at 17:15; Stop 10/23/17 at 17:40; Status DC Potassium Bicarb/ Potassium Chloride (K-Lyte Cl Eff) 25 meq ONCE ONCE PO ; Start 10/23/17 at 17:45; Stop 10/23/17 at 17:57; Status DC Cefepime HCl 1000 mg/Sodium Chloride 100 ml @ 200 mls/hr Q12H IV Last administered on 11/10/17 09:06; Start 10/23/17 at 20:00; Stop 11/10/17 at 19:59 ; Status DC Levofloxacin/ Dextrose 100 ml @ 100 mls/hr Q24H IV Last administered on 17:56; Start 10/24/17 at 18:00; Stop 11/10/17 at 17:59; Status DC Ketorolac Tromethamine (Toradol Inj) 15 mg DAILY IV PUSH Last administered on 10/28/17 13:45; Start 10/24/17 at 09:00; Stop 10/29/17 at 08:59; Status DC Prednisone (predniSONE LIQ) 10 mg BID PO ; Start 10/23/17 at 21:00; Stop 10/23 at 21:51; Status DC Potassium Bicarb/ Potassium Chloride (K-Lyte Cl Eff) 25 meq ONCE ONCE PEG Last administered on 10/23/17 18:02; Start 10/23/17 at 18:00; Stop 10/23/17 at 18:01; Status DC Prednisone (predniSONE LIQ) 10 mg BID G-TUBE Last administered on 10/24/17 09 :34; Start 10/24/17 at 09:00; Stop 10/24/17 at 15:36; Status DC Potassium Chloride/Sodium Chloride 1,000 ml @ 42 mls/hr [id number] IV Last administered on 10/25/17 11:37; Start 10/24/17 at 16:00; Stop 10/25/17 at 13 :32; Status DC Lisinopril (Prinivil) 10 mg BID PEG Last administered on 11/21/17 21:41; Start 11/15/17 at 21:00; Stop 11/22/17 at 08:58; Status DC Sodium Chloride (NS Flush) 2 ml UNSCH PRN IV FLUSH FLUSH AFTER USING IV ACCESS Last administered on 2/5/18at 08:20; Start 11/17/17 at 10:15 Lisinopril (Prinivil) 5 mg BID PEG ; Start 11/22/17 at 09:15; Stop 11/23/17 at 11:24; Status DC Metoprolol Tartrate (Lopressor) 50 mg BID PEG Last administered on 11/23/17at 20 :50; Start 11/23/17 at 21:00; Stop 11/24/17 at 12:59; Status DC Metoprolol Tartrate (Lopressor) 25 mg BID PEG Last administered on 12/22/17at 21 :36; Start 11/24/17 at 21:00 Ceftriaxone Sodium 1000 mg/ Sodium Chloride 100 ml @ 200 mls/hr Q24H IV Last administered on 12/23/17at 09:39; Start 12/09/17 at 09:00 Polyethylene Glycol (Miralax) 17 gm DAILY PO Last administered on 12/14/17at 09: 08; Start 12/09/17 at 09:15; Stop 12/16/17 at 17:49; Status DC Hydralazine HCl (Apresoline) 50 mg Q6HR PEG Last administered on 12/12/17at 17:41 ; Start 12/11/17 at 06:00; Stop 12/12/17 at 19:14; Status DC Hydralazine HCl (Apresoline) 50 mg Q8HR PEG Last administered on 12/23/17at 06: 02; Start 12/12/17 at 22:00 Potassium Chloride/Dextrose/ Sod Cl 1,000 ml @ 84 mls/hr [id number] IV Last administered on 12/12/17at 20:40; Start 12/12/17 at 19:15; Stop 12/13/17 at 12:00; Status DC Diatrizoate Meglum/ Diatrizoate Sod ( Gastroview Liq) 120 ml STK-MED ONCE PEG ; Start 12/13/17 at 15:17; Stop 12/13/17 at 15:18; Status DC Potassium Bicarb/ Potassium Chloride (K-Lyte Cl Eff) 25 meq ONCE ONCE PO Last administered on 12/16/17at 09:56; Start 12/16/17 at 10:00; Stop 12/16/17 at 10:24; Status DC Polyethylene Glycol (Miralax) 17 gm DAILY PRN PO SEVERE CONSTIPATION; Start 08/23 at 18:00 Nifedipine (Procardia) 40 mg Q6HR .XX Last administered on 12/23/17at 06:02; Start 12/17/17 at 18:00 Oxycodone/ Acetaminophen (Percocet 5-325 Mg) 1 tab Q6H PRN PO PAIN 3 TO 5 Last administered on 12/23/17at 09:38; Start 12/22/17 at 15:00 Oxycodone/ Acetaminophen (Percocet 10-325 Mg) 1 tab Q6H PRN PO PAIN 6-10 Last administered on 12/22/17at 18:56; Start 12/22/17 at 15:00 Date of Insertion: Nov 08, 2017 A/P Problem List: (1) Major neurocognitive disorder ICD Code: F03.90 - Unspecified dementia without behavioral disturbance (2) Hemiparesis ICD Code: G81.90 - Hemiplegia, unspecified affecting unspecified side Status: Acute (3) Intracranial hemorrhage ICD Code: I62.9 - Nontraumatic intracranial hemorrhage, unspecified Status: Chronic (4) Aphasia ICD Code: R47.01 - Aphasia Assessment and Plan Assessment and Plan Status post hemorrhagic CVA Continue PT, OT, and ST Patient was homeless prior to admit Poor access for inpatient rehabilitation Family desires aggressive measures for therapy and placement Independent funding unavailable for placement Long-term prognosis is poor No significant capacity for regaining full functionality Palliative care following UTI low-grade fevers Replace Cruz at this time Continue Rocephin 1 g IV daily Urine cultures pending. Currently growing gram-negative rods Repeat chest x-ray Dysphagia Related to intracranial bleed history Status post PEG placement on 05/09/17 Continue tube feeding Hypertension emergency Follow blood pressures. Well-controlled at this time Continue the following blood pressure meds: Nifedipine 40 mg every 6 hours Lisinopril 10 mg twice daily Apresoline 50 mg every 6 hours Catapres TTS 3 patch Metoprolol 100 mg twice daily HCTZ 25 mg daily Apresoline, clonidine, Vasotec as needed ALL BEING HELD DUE TO PARAMETERS Hyperglycemia Glucerna for tube feeds Follow blood sugars intermittently Xeroderma on bilateral feet Lac-Hydrin 12% Lotion continued. Coccyx pressure wound, wound vac in place. Wound care following. . Nutrition: Obtain accurate weight, Tube feeds at 40 cc per hour, will reconsult dietary. Discussed with nursing. DVT Prophylaxis: SCDs given history of recent intracranial hemorrhage Discharge Planning PENDING SAFE PLACEMENT AND FAMILY AGREEMENT Harry Vargas DO Dec 23, 2017 13:22
[2017-12-23 14:00] VITALS: BP 100/62
[2017-12-23 16:00] VITALS: BP 108/74
[2017-12-23 21:02] VITALS: BP 111/78; PULSE 82; RESP 20; TEMP 98.3; O2SAT 97
[2017-12-24 05:03] VITALS: BP 104/76; PULSE 84; RESP 20; TEMP 98.2; O2SAT 97
[2017-12-24] MEDS: NIFEdipine 10 MG CAP SCH ×3 (05:35→17:35)
[2017-12-24] MEDS: hydrALAZINE HCL 100 MG TAB PEG SCH ×3 (05:35→20:06)
[2017-12-24] MEDS: FREE WATER G-TUBE SCH ×3 (05:35→17:35)
[2017-12-24 08:00] VITALS: BP 102/66; PULSE 82; RESP 12; TEMP 98.5; O2SAT 97
[2017-12-24] MEDS: METOPROLOL TARTRATE 25 MG TAB PEG SCH ×2 (08:42→20:06)
[2017-12-24] MEDS: HYDROCHLOROTHIAZIDE 25 MG TAB PO SCH (08:42)
[2017-12-24] MEDS: LANSOPRAZOLE SOLUTAB 30 MG TAB G-TUBE SCH (08:42)
[2017-12-24] MEDS: cefTRIAXone INJ 1,000 MG in SODIUM CHLORIDE 0.9% INJ 100 ML IV SCH (08:43)
[2017-12-24] MEDS: LACTIC ACID (AMMONIUM LACTATE) 12% LOTION 225 GM BTL TOPICAL SCH ×2 (08:43→20:06)
[2017-12-24 09:23] LABS: HEMOGLOBIN A1C 5.2 % (4.3-6.0)
--- NOTE | 2017-12-24 09:55 | HHI.PR ---
Subjective Remarks Discussed with nursing, no overnight events. Still follows some commands, nonverbal. Objective Vitals Vital Signs Date Time Temp Pulse Resp B/P (MAP) Pulse Ox O2 Delivery O2 Flow Rate FiO2 12/24/17 08:00 98.5 82 12 102/66 (78) 97 12/24/17 05:03 98.2 84 20 104/76 (85) 97 12/23/17 21:02 98.3 82 20 111/78 (89) 97 12/23/17 16:00 108/74 (85) 12/23/17 14:00 100/62 (75) I/O 12/23/17 12/23/17 12/23/17 12/24/17 12/24/17 12/24/17 07:00 15:00 23:00 07:00 15:00 23:00 Intake Total 804 ml 780 ml 1180 ml Output Total 400 ml 0 ml 600.0 ml 750 ml 0 ml Balance 404 ml 0 ml 180.0 ml 430 ml 0 ml Intake Oral 0 ml Tube Feeding 474 ml 480 ml 480 ml Tube Irrigant 30 ml Other 300 ml 300 ml 700 ml Output Urine Total 400 ml 600 ml 600 ml Tube Feeding Residual Discard 0 ml 0 ml 0 ml Drainage Total 150 ml # Bowel Movements 1 2 2 Result Diagram: 12/23/17 0830 12/23/17 0847 Objective Remarks GENERAL: Patient lying in bed, appears comfortable. Nods yes/no to questions. EYES: No scleral icterus. No injection or drainage. NECK: Supple, trachea midline. No JVD. CARDIOVASCULAR: Regular rate and rhythm without murmurs, gallops, or rubs. RESPIRATORY: Breath sounds equal bilaterally. No accessory muscle use. GASTROINTESTINAL: Abdomen soft, non-tender, nondistended. Cruz catheter with clear yellow urine. MUSCULOSKELETAL: No cyanosis, or edema. Follows some commands, good handgrip, close her eyes on command. Procedures Peg Tube placed 05/08/17 (Dr. De Los Santos) Date of Insertion: Nov 08, 2017 A/P Problem List: (1) Major neurocognitive disorder ICD Code: F03.90 - Unspecified dementia without behavioral disturbance (2) Hemiparesis ICD Code: G81.90 - Hemiplegia, unspecified affecting unspecified side Status: Acute (3) Intracranial hemorrhage ICD Code: I62.9 - Nontraumatic intracranial hemorrhage, unspecified Status: Chronic (4) Aphasia ICD Code: R47.01 - Aphasia Assessment and Plan Status post hemorrhagic CVA Continue PT, OT, and ST Patient was homeless prior to admit Poor access for inpatient rehabilitation Family desires aggressive measures for therapy and placement Independent funding unavailable for placement Long-term prognosis is poor No significant capacity for regaining full functionality Palliative care following UTI low-grade fevers Replace Cruz at this time, urine culture grew Enterobacter, chest x-ray was stable, stop ceftriaxone. Dysphagia Related to intracranial bleed history Status post PEG placement on 05/09/17 Continue tube feeding as below. Hypertension emergency Follow blood pressures. [place] controlled, decrease Catapres patch to 0.2 mg daily. Continue the following blood pressure meds: Nifedipine 40 mg every 6 hours Lisinopril 10 mg twice daily Apresoline 50 mg every 6 hours Catapres TTS 3 patch Metoprolol 100 mg twice daily HCTZ 25 mg daily Apresoline, clonidine, Vasotec as needed Hyperglycemia Glucerna for tube feeds Follow blood sugars intermittently Xeroderma on bilateral feet Lac-Hydrin 12% Lotion continued. Coccyx pressure wound, wound care following. Nutrition: Tube feeds changed to Glucerna 1.5 5/10 today, bolus feeding with Tyshawn. DVT Prophylaxis: SCDs given history of recent intracranial hemorrhage Nolvia Salomon MD Dec 24, 2017 09:55
[2017-12-24] MEDS ORDERED: cloNIDine HCL 0.2 MG/24 HR PATCH T-DERMAL SCH (11:00)
[2017-12-24 12:16] VITALS: BP 102/79
[2017-12-24] MEDS ORDERED: RESP: ALBUTEROL 2.5 MG/IPRATROPIUM 0.5 MG NEB (SCH) ONE (18:07)
[2017-12-24 20:20] VITALS: BP 118/78; PULSE 79; RESP 20; TEMP 98.2; O2SAT 92
[2017-12-25] MEDS: NIFEdipine 10 MG CAP SCH ×4 (05:50→18:51)
[2017-12-25] MEDS: FREE WATER G-TUBE SCH ×4 (05:50→18:00)
[2017-12-25] MEDS: hydrALAZINE HCL 100 MG TAB PEG SCH ×3 (05:50→22:17)
[2017-12-25 07:15] VITALS: BP 108/78; PULSE 66; RESP 24; TEMP 98.7; O2SAT 99
[2017-12-25] MEDS: LACTIC ACID (AMMONIUM LACTATE) 12% LOTION 225 GM BTL TOPICAL SCH ×2 (09:00→22:19)
[2017-12-25] MEDS: METOPROLOL TARTRATE 25 MG TAB PEG SCH ×2 (09:00→22:17)
[2017-12-25] MEDS: LANSOPRAZOLE SOLUTAB 30 MG TAB G-TUBE SCH (09:00)
[2017-12-25] MEDS: HYDROCHLOROTHIAZIDE 25 MG TAB PO SCH (09:00)
--- NOTE | 2017-12-25 10:43 | HHI.PR ---
Subjective Remarks 2-14Follows some commands, closes eyes, stick out tongue, good hand instrument tester especially on the left. No overnight events per nursing. Tube feeds at 40 cc per hour. 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 Still follows some commands, nonverbal. 2-19 FAMILY AT BEDSIDE AWAITING SAFE PLACEMENT DW RN AND PT Objective Vitals Vital Signs Date Time Temp Pulse Resp B/P (MAP) Pulse Ox O2 Delivery O2 Flow Rate FiO2 12/24/17 20:20 98.2 79 20 118/78 (91) 92 12/24/17 12:16 102/79 (87) I/O 12/24/17 12/24/17 12/24/17 12/25/17 12/25/17 12/25/17 07:00 15:00 23:00 07:00 15:00 23:00 Intake Total 1180 ml 562 ml 820 ml Output Total 750 ml 0 ml 600 ml 250 ml Balance 430 ml 0 ml -38 ml 570 ml Intake Oral 0 ml Tube Feeding 480 ml 562 ml 520 ml Other 700 ml 300 ml Output Urine Total 600 ml 550 ml 250 ml Tube Feeding Residual Discard 0 ml Drainage Total 150 ml 50 ml # Bowel Movements 2 1 Result Diagram: 12/23/17 0830 12/23/17 0847 Other Results Laboratory Tests Test 12/23/17 08:30 12/23/17 08:47 White Blood Count 7.4 TH/MM3 Red Blood Count 3.79 MIL/MM3 Hemoglobin 10.5 GM/DL Hematocrit 31.2 % Mean Corpuscular Volume 82.2 FL Mean Corpuscular Hemoglobin 27.8 PG Mean Corpuscular Hemoglobin Concent 33.8 % Red Cell Distribution Width 15.0 % Platelet Count 373 TH/MM3 Mean Platelet Volume 8.3 FL Neutrophils (%) (Auto) 71.1 % Lymphocytes (%) (Auto) 15.2 % Monocytes (%) (Auto) 9.0 % Eosinophils (%) (Auto) 4.2 % Basophils (%) (Auto) 0.5 % Neutrophils # (Auto) 5.2 TH/MM3 Lymphocytes # (Auto) 1.1 TH/MM3 Monocytes # (Auto) 0.7 TH/MM3 Eosinophils # (Auto) 0.3 TH/MM3 Basophils # (Auto) 0.0 TH/MM3 CBC Comment DIFF FINAL Differential Comment Blood Urea Nitrogen 15 MG/DL Creatinine 0.36 MG/DL Random Glucose 111 MG/DL Total Protein 7.2 GM/DL Albumin 3.0 GM/DL Calcium Level 9.0 MG/DL Phosphorus Level 2.7 MG/DL Magnesium Level 2.4 MG/DL Alkaline Phosphatase 71 U/L Aspartate Amino Transf (AST/SGOT) 19 U/L Alanine Aminotransferase (ALT/SGPT) 16 U/L Total Bilirubin 0.2 MG/DL Sodium Level 140 MEQ/L Potassium Level 3.9 MEQ/L Chloride Level 103 MEQ/L Carbon Dioxide Level 31.3 MEQ/L Anion Gap 6 MEQ/L Estimat Glomerular Filtration Rate 220 ML/MIN Hemoglobin A1c 5.2 % Free Thyroxine 1.88 NG/DL Thyroid Stimulating Hormone 3rd Gen 1.270 uIU/ML Imaging Last Impressions Abdomen X-Ray 12/13/17 0000 Signed Impressions: Service Date/Time: Wednesday, December 13, 2017 14:17 - CONCLUSION: PEG tube in stomach.. Harry Dumas MD FACR Chest X-Ray 12/11/17 0000 Signed Impressions: Service Date/Time: Monday, December 11, 2017 11:21 - CONCLUSION: Minimal patchiness within the right lung base. Stable cardiomegaly. Degenerative changes and scoliosis of the thoracic spine. Denny Hart MD Upper Extremity Ultrasound 11/06/17 0000 Signed Impressions: Service Date/Time: Monday, November 06, 2017 14:17 - CONCLUSION: Normal examination. K. Byron Perez MD Pelvis CT 10/13/17 0000 Signed Impressions: Service Date/Time: Friday, October 13, 2017 12:02 - CONCLUSION: 1. Decubitus ulcer with small abscess in the right posterior perineal region measuring 3.1 x 4.6 cm. There is also a small abscess posterior and to the left of the rectum measuring 3.2 x 2.3 cm. Jann Weber MD Head CT 04/25/17 0000 Signed Impressions: Service Date/Time: Tuesday, April 25, 2017 18:02 - CONCLUSION: 1. Evolving left thalamic hematoma. No new hemorrhage. Adi Quarles MD Neck CTA 04/10/17 0000 Signed Impressions: Service Date/Time: Monday, April 10, 2017 22:28 - CONCLUSION: The internal carotid arteries are normal bilaterally. No significant atherosclerotic disease is noted. Eliud Du MD Head CTA 04/10/17 0000 Signed Impressions: Service Date/Time: Monday, April 10, 2017 22:50 - CONCLUSION: Mild dilatation of the basilar tip without discrete aneurysm. Some narrowing of the left middle cerebral branch after the bifurcation. Prominent left thalamic hemorrhage. Eliud Du MD Objective Remarks GENERAL: Patient lying in CHAIR, appears comfortable -HER VOICE IS very soft- spoken can be heard with my stethoscope only SKIN: Warm and dry. HEAD: Atraumatic. Normocephalic. EYES: Pupils equal and round. No scleral icterus. No injection or drainage. ENT: No nasal bleeding or discharge. Mucous membranes pink and moist. NECK: Trachea midline. No JVD. Supple CARDIOVASCULAR: Regular rate and rhythm. S1 and S2 no S3 or S4 RESPIRATORY: No accessory muscle use. Clear to auscultation. Breath sounds equal bilaterally. GASTROINTESTINAL: Abdomen soft, non-tender, nondistended. Hepatic and splenic margins not palpable. PEG tube in place--Cruz catheter in place MUSCULOSKELETAL: Extremities without clubbing, cyanosis, or edema. No obvious deformities. Has bilateral foot drop and right upper extremity flaccid can move left upper extremity with good instrument tester strength NEUROLOGICAL: Awake and alert. No obvious cranial nerve deficits. Normal speech but very very soft. PSYCHIATRIC: Appropriate mood and affect; insight and judgment ABnormal. Procedures Peg Tube placed 05/08/17 (Dr. De Los Santos) Medications and IVs Current Medications Sodium Chloride (NS Flush) 2 ml UNSCH PRN IVF FLUSH AFTER USING IV ACCESS; Start 04/10/17 at 20:00; Stop 04/10/17 at 22:12; Status DC Nicardipine HCl 25 mg/Sodium Chloride 260 ml @ 0 mls/hr TITRATE IV Last administered on 04/10/17t 21:34; Start 04/10/17 at 20:00; Stop 04/10/17 at 22:12; Status DC Sodium Chloride 1,000 ml @ 84 mls/hr [id number] IV Last administered on 04/11/17 07:47; Start 04/10/17 at 22:00; Stop 04/11/17 at 15:41; Status DC Sodium Chloride (NS Flush) 2 ml UNSCH PRN .XX FLUSH AFTER USING IV ACCESS Last administered on 05/01/17 04:49; Start 04/10/17 at 22:00; Stop 05/26/17 at 10:07 ; Status DC Sodium Chloride (NS Flush) 2 ml BID .XX Last administered on 05/26/17 09:54; Start 04/11/17 at 09:00; Stop 05/26/17 at 10:07; Status DC Acetaminophen (Tylenol) 650 mg Q6H PRN PO PAIN 1-10 AND/OR FEVER >101F Last administered on 04/26/17 13:46; Start 04/10/17 at 22:00; Stop 06/16/17 at 10:03 ; Status DC Morphine Sulfate (Morphine Inj) 2 mg Q2H PRN IV PAIN SCALE 6 TO 10 Last administered on 05/25/17 21:09; Start 04/10/17 at 22:00; Stop 05/26/17 at 10:07 ; Status DC Famotidine (Pepcid Inj) 20 mg Q12HR IV PUSH Last administered on 05/04/17 08: 37; Start 04/11/17 at 09:00; Stop 05/04/17 at 14:13; Status DC Ondansetron HCl (Zofran Inj) 4 mg Q6H PRN IV NAUSEA OR VOMITING; Start 04/10/17 at 22:00; Stop 05/26/17 at 10:07; Status DC Metoclopramide HCl (Reglan Inj) 10 mg Q6H PRN IV NAUSEA OR VOMITING; Start 04/10 at 22:00; Stop 05/26/17 at 10:07; Status DC Prochlorperazine (Compazine Supp) 25 mg Q12H PRN RECTAL NAUSEA OR VOMITING; Start 04/10/17 at 22:00; Stop 05/26/17 at 10:07; Status DC Albuterol/ Ipratropium (Duoneb Neb) 1 ampule Q2HR NEB PRN INH WHEEZING; Start 04/10/17 at 22:00; Stop 05/26/17 at 10:07; Status DC Miscellaneous Information 1 [id number] XX Last administered on 04/10/17 22:00; Start 04/10/17 at 22:00; Stop 05/26/17 at 10:07; Status DC Chlorhexidine Gluconate (Chlorhexidine 2% Cloth) Taper DAILY@04 TOP Last administered on 05/21/17 04:00; Start 04/11/17 at 04:00; Stop 05/26/17 at 10:07 ; Status DC Chlorhexidine Gluconate (Chlorhexidine 2% Cloth) 3 pack UNSCH PRN TOP HYGIENIC CARE; Start 04/10/17 at 22:00; Stop 05/26/17 at 10:07; Status DC Senna/Docusate Sodium (Evelyn-Colace) 1 tab BID PO Last administered on 09:20; Start 04/11/17 at 09:00; Stop 06/16/17 at 10:03; Status DC Magnesium Hydroxide (Milk Of Magnesia Liq) 30 ml Q12H PRN PO MILD - MODERATE CONSTIPATION; Start 04/10/17 at 22:00; Stop 05/26/17 at 10:07; Status DC Sennosides (Senokot) 17.2 mg Q12H PRN PO MODERATE - SEVERE CONSTIPATION Last administered on 05/08/17 21:29; Start 04/10/17 at 22:00; Stop 05/26/17 at 10:07; Status DC Bisacodyl (Dulcolax Supp) 10 mg DAILY PRN RECTAL SEVERE CONSITIPATION; Start at 22:00 Lactulose (Lactulose Liq) 30 ml DAILY PRN PO SEVERE CONSITIPATION Last administered on 04/24/17 08:44; Start 04/10/17 at 22:00; Stop 06/16/17 at 10:03 ; Status DC Nicardipine HCl 25 mg/Sodium Chloride 260 ml @ 0 mls/hr TITRATE IV Last administered on 04/14/17 04:35; Start 04/10/17 at 22:15; Stop 04/14/17 at 12:18; Status DC Iohexol (Omnipaque 350 Inj) 70 ml STK-MED ONCE IV Last administered on 22:35; Start 04/10/17 at 22:35; Stop 04/10/17 at 22:36; Status DC Labetalol HCl (Trandate Inj) 20 mg Q4H PRN IV PUSH sbp>160 Last administered on 04/17/17 02:24; Start 04/12/17 at 08:15; Stop 04/25/17 at 18:06; Status DC Hydralazine HCl (Apresoline Inj) 20 mg Q4H PRN IV PUSH sbp>150 Last administered on 05/17/17 20:39; Start 04/12/17 at 08:15; Stop 05/18/17 at 14:44 ; Status DC Amlodipine Besylate (Norvasc) 5 mg DAILY PO Last administered on 04/14/17 08:55 ; Start 04/12/17 at 09:00; Stop 04/15/17 at 06:44; Status DC Metoclopramide HCl (Reglan Inj) 5 mg Q8HR IV PUSH Last administered on 14:02; Start 04/12/17 at 16:00; Stop 05/04/17 at 14:13; Status DC Potassium Chloride 100 ml @ 50 mls/hr Q2H PRN IV For Potassium 2.8 - 3.2 mEq/L ; Start 04/13/17 at 11:45; Stop 04/25/17 at 11:32; Status DC Potassium Chloride 100 ml @ 50 mls/hr Q2H PRN IV For Potassium 2.8 - 3.2 mEq/ L Last administered on 04/14/17 13:06; Start 04/13/17 at 11:45; Stop 04/25/17 at 11:32; Status DC Potassium Bicarb/ Potassium Chloride (K-Lyte Cl Eff) 50 meq UNSCH PRN PO For Potassium 3.3 - 3.5 mEq/L Last administered on 04/19/17 14:03; Start 04/13/17 at 11:45; Stop 04/25/17 at 11:32; Status DC Potassium Chloride 100 ml @ 25 mls/hr UNSCH PRN IV For Potassium 3.3 - 3.5 mEq /L; Start 04/13/17 at 11:45; Stop 04/25/17 at 11:32; Status DC Potassium Chloride 100 ml @ 50 mls/hr Q2H PRN IV For Potassium 3.3 - 3.5 mEq/L ; Start 04/13/17 at 11:45; Stop 04/25/17 at 11:32; Status DC Magnesium Sulfate 4 gm/Sodium Chloride 100 ml @ 50 mls/hr UNSCH PRN IV For Magnesium 0.9 - 1.1 mg/dL; Start 04/13/17 at 11:45; Stop 04/25/17 at 11:32; Status DC Magnesium Oxide (Mag-Ox) 800 mg UNSCH PRN PO For Magnesium 1.2 - 1.6 mg/dL; Start 04/13/17 at 11:45; Stop 04/25/17 at 11:32; Status DC Magnesium Sulfate 2 gm/Sodium Chloride 100 ml @ 50 mls/hr UNSCH PRN IV For Magnesium 1.2 - 1.6 mg/dL; Start 04/13/17 at 11:45; Stop 04/25/17 at 11:32; Status DC Potassium Phosphate (K-Phos) 2,000 mg Q4H PRN PO For Phosphorus < 2.5 mg/dL; Start 04/13/17 at 11:45; Stop 04/25/17 at 11:32; Status DC Sodium Phosphate 30 mmol/Sodium Chloride 250 ml @ 42 mls/hr UNSCH PRN IV For Phosphorus < 2.5 mg/dL; Start 04/13/17 at 11:45; Stop 04/25/17 at 11:32; Status DC Potassium Phosphate (K-Phos) 2,000 mg UNSCH PRN PO/TUBE SEE LABEL COMMENTS; Start 04/13/17 at 11:45; Stop 04/25/17 at 11:32; Status DC Potassium Phosphate 30 mmol/ Sodium Chloride 260 ml @ 42 mls/hr UNSCH PRN IV SEE LABEL COMMENTS; Start 04/13/17 at 11:45; Stop 04/25/17 at 11:32; Status DC Metoprolol Tartrate (Lopressor) 25 mg Q8HR PO Last administered on 04/14/17 05: 40; Start 04/13/17 at 14:00; Stop 04/14/17 at 12:18; Status DC Hydralazine HCl (Apresoline) 50 mg Q8H PO Last administered on 04/14/17 03:23; Start 04/13/17 at 12:00; Stop 04/14/17 at 09:23; Status DC Hydralazine HCl (Apresoline) 100 mg Q8H PO Last administered on 04/14/17 11:25 ; Start 04/14/17 at 12:00; Stop 04/14/17 at 19:47; Status DC Metoprolol Tartrate (Lopressor) 50 mg Q8HR PO Last administered on 04/24/17 05 :27; Start 04/14/17 at 14:00; Stop 04/24/17 at 09:28; Status DC Hydralazine HCl (Apresoline Inj) 20 mg ONCE ONCE IV PUSH Last administered on 04/14/17 17:42; Start 04/14/17 at 17:15; Stop 04/14/17 at 17:32; Status DC Labetalol HCl (Trandate Inj) 10 mg ONCE ONCE IV PUSH Last administered on 17:42; Start 04/14/17 at 17:15; Stop 04/14/17 at 17:32; Status DC Clonidine (Catapres) 0.3 mg ONCE ONCE PO Last administered on 04/14/17 17:50; Start 04/14/17 at 17:15; Stop 04/14/17 at 17:32; Status DC Clonidine (Catapres) 0.2 mg Q8HR PO ; Start 04/14/17 at 22:00; Stop 04/14/17 at 22 :00; Status DC Clonidine (Catapres) 0.3 mg Q8HR PO Last administered on 04/26/17 05:55; Start 04/14/17 at 22:00; Stop 04/26/17 at 14:39; Status DC Hydralazine HCl (Apresoline) 100 mg Q6HR PO Last administered on 04/15/17 10: 39; Start 04/15/17 at 00:00; Stop 04/15/17 at 13:10; Status DC Amlodipine Besylate (Norvasc) 10 mg DAILY PO Last administered on 06/12/17 07: 39; Start 04/14/17 at 19:45; Stop 06/12/17 at 07:56; Status DC Enalaprilat (Vasotec Inj) 1.25 mg Q6H PRN IV PUSH SBP>160, DBP>90 Last administered on 05/13/17 01:22; Start 04/15/17 at 01:15; Stop 05/26/17 at 10:07 ; Status DC Nitroglycerin (Nitroglycerin 2% Oint) 2 inch Q6HR PRN TOPICAL SBP>160, DBP>90 Last administered on 04/16/17 12:34; Start 04/15/17 at 06:00; Stop 05/26/17 at 10:07; Status DC Hydralazine HCl (Apresoline) 100 mg Q8HR PO Last administered on 04/26/17 05: 55; Start 04/15/17 at 14:00; Stop 04/26/17 at 14:39; Status DC Lisinopril (Prinivil) 20 mg DAILY PO Last administered on 04/16/17 08:32; Start 04/15/17 at 13:30; Stop 04/16/17 at 14:58; Status DC Lisinopril (Prinivil) 20 mg ONCE ONCE PO Last administered on 04/16/17 15:27 ; Start 04/16/17 at 15:00; Stop 04/16/17 at 15:03; Status DC Lisinopril (Prinivil) 40 mg BID PO Last administered on 04/20/17 09:09; Start 04/16/17 at 21:00; Stop 04/20/17 at 16:42; Status DC Hydrochlorothiazide (Hydrodiuril) 25 mg DAILY PO Last administered on 08:59; Start 04/17/17 at 17:45; Stop 04/18/17 at 16:28; Status DC Hydrochlorothiazide (Hydrodiuril) 25 mg ONCE ONCE PO Last administered on 04/18 16:51; Start 04/18/17 at 16:30; Stop 04/18/17 at 16:32; Status DC Hydrochlorothiazide (Hydrodiuril) 50 mg DAILY PO Last administered on 08:50; Start 04/19/17 at 09:00; Stop 04/25/17 at 18:06; Status DC Lisinopril (Prinivil) 30 mg BID PO Last administered on 04/25/17 08:50; Start 04/20/17 at 21:00; Stop 04/25/17 at 18:06; Status DC Miscellaneous (Pill Splitter) 1 ea UNSCH PRN OTHER SEE LABEL COMMENTS; Start at 17:15; Stop 10/18/17 at 09:37; Status DC Ceftriaxone Sodium 1000 mg/ Sodium Chloride 100 ml @ 200 mls/hr HS IV Last administered on 04/29/17 22:04; Start 04/22/17 at 21:30; Stop 04/30/17 at 12:37 ; Status DC Metoprolol Tartrate (Lopressor) 50 mg BID PO Last administered on 05/26/17 09: 54; Start 04/24/17 at 21:00; Stop 05/26/17 at 10:12; Status DC Lisinopril (Prinivil) 20 mg DAILY PO Last administered on 04/27/17 09:52; Start 04/26/17 at 09:00; Stop 04/28/17 at 00:21; Status DC Clonidine (Catapres) 0.2 mg Q8HR PO Last administered on 05/26/17 05:57; Start 04/26/17 at 22:00; Stop 05/26/17 at 10:12; Status DC Hydralazine HCl (Apresoline) 50 mg Q8HR PO Last administered on 04/27/17 12:45 ; Start 04/26/17 at 22:00; Stop 04/27/17 at 15:31; Status DC Hydralazine HCl (Apresoline) 100 mg Q8HR PO Last administered on 06/10/17 06:18 ; Start 04/27/17 at 22:00; Stop 06/10/17 at 12:03; Status DC Lisinopril (Prinivil) 40 mg DAILY PO Last administered on 06/16/17 09:20; Start 04/28/17 at 09:00; Stop 06/16/17 at 10:03; Status DC Famotidine (Pepcid) 20 mg BID NG Last administered on 05/09/17 09:36; Start at 21:00; Stop 05/09/17 at 12:49; Status DC Lactic Acid (Lac-Hydrin 12% Lotion) 1 applic BID TOPICAL Last administered on at 09:00; Start 05/04/17 at 14:00 Cefazolin Sodium 1000 mg/Sodium Chloride 100 ml @ 200 mls/hr DIGESTER CAPPER IV ; Start 05/06/17 at 10:30; Stop 05/09/17 at 10:29; Status DC Cefazolin Sodium (Ancef Inj) 1,000 mg STK-MED ONCE IV Last administered on 15:00; Start 05/08/17 at 15:00; Stop 05/08/17 at 15:08; Status DC Propofol (Diprivan 200 Mg/20 ml Inj) 150 mg STK-MED ONCE IV PUSH ; Start at 15:27; Stop 05/08/17 at 15:45; Status DC Lansoprazole (Prevacid Odt) 30 mg DAILY G-TUBE Last administered on 12/25/17at 09:00; Start 05/10/17 at 09:00 Nystatin (Mycostatin Liq) 5 ml QID SWISH-SWAL Last administered on 05/22/17 09:36; Start 05/14/17 at 13:00; Stop 05/22/17 at 11:19; Status DC Hydralazine HCl (Apresoline) 25 mg Q4HR PRN PEG for sbp greater than 150 Last administered on 11/04/17 14:28; Start 05/18/17 at 14:45 Clonidine (Catapres) 0.1 mg Q6H PRN PO for SBP greater than 170 Last administered on 05/22/17 02:48; Start 05/21/17 at 07:30; Stop 05/26/17 at 10:12 ; Status DC Nystatin (Mycostatin Liq) 5 ml QID SWISH-SWAL Last administered on 05/28/17 09:43; Start 05/23/17 at 13:00; Stop 05/28/17 at 10:02; Status DC Ondansetron HCl (Zofran Liq) 4 mg Q6H PRN PEG NAUSEA OR VOMITING; Start at 10:00 Metoprolol Tartrate (Lopressor) 75 mg BID PO Last administered on 05/28/17 09: 43; Start 05/26/17 at 21:00; Stop 05/28/17 at 09:58; Status DC Clonidine (Catapres-Tts 0.2 Mg Patch.7d) 1 patch Q7D T-DERMAL Last administered on 06/02/17 11:27; Start 05/26/17 at 12:00; Stop 06/06/17 at 12:47 ; Status DC Miscellaneous Information 1 Q7D T-DERMAL Last administered on 06/02/17 11:28; Start 06/02/17 at 12:00; Stop 06/06/17 at 13:31; Status DC Metoprolol Tartrate (Lopressor) 100 mg BID PO Last administered on 06/16/17 09 :20; Start 05/28/17 at 21:00; Stop 06/16/17 at 10:03; Status DC Fluconazole (Diflucan) 200 mg DAILY PO Last administered on 06/03/17 08:44; Start 05/28/17 at 11:00; Stop 06/04/17 at 08:59; Status DC Levofloxacin (Levaquin Liq) 750 mg Q24H PEG ; Start 05/29/17 at 11:00; Stop at 15:05; Status DC Levofloxacin (Levaquin Liq) 750 mg DAILY@16 PEG Last administered on 16:20; Start 05/29/17 at 16:00; Stop 06/04/17 at 16:01; Status DC Sodium Chloride 500 ml @ 500 mls/hr BOLUS ONCE IV Last administered on 15:43; Start 06/01/17 at 11:30; Stop 06/01/17 at 12:29; Status DC Sodium Chloride 1,000 ml @ 100 mls/hr Q10H IV Last administered on 06/03/17 06:17; Start 06/02/17 at 11:15; Stop 06/03/17 at 10:16; Status DC Clonidine (Catapres-Tts 0.3 Mg Patch.7d) 1 patch Q7D T-DERMAL Last administered on 12/19/17 17:32; Start 06/06/17 at 15:00; Stop 12/24/17 at 09:54 ; Status DC Miscellaneous Information 1 Q7D T-DERMAL Last administered on 12/19/17at 15:00; Start 06/06/17 at 15:00; Stop 12/24/17 at 09:54; Status DC Hydralazine HCl (Apresoline) 100 mg Q6HR PO Last administered on 06/16/17 06: 20; Start 06/10/17 at 18:00; Stop 06/16/17 at 10:03; Status DC Nifedipine (Procardia Xl) 60 mg DAILY PO Last administered on 06/15/17 10:04; Start 06/12/17 at 09:00; Stop 06/16/17 at 10:03; Status DC Acetaminophen (Tylenol) 650 mg Q6H PRN PEG PAIN 1-10 AND/OR FEVER >101F Last administered on 10/17/17 19:29; Start 06/16/17 at 16:00; Status Future Hold Senna/Docusate Sodium (Evelyn-Colace) 1 tab BID PEG Last administered on 09:42; Start 06/16/17 at 21:00; Stop 06/28/17 at 10:38; Status DC Hydralazine HCl (Apresoline) 100 mg Q6HR PEG Last administered on 08/17/17 22 :43; Start 06/16/17 at 12:00; Stop 08/18/17 at 07:50; Status DC Lactulose (Lactulose Liq) 30 ml DAILY PRN PEG SEVERE CONSITIPATION; Start 06/16 at 10:00; Stop 08/17/17 at 08:28; Status DC Lisinopril (Prinivil) 40 mg DAILY PEG Last administered on 08/16/17 08:04; Start 06/17/17 at 09:00; Stop 08/18/17 at 07:50; Status DC Metoprolol Tartrate (Lopressor) 100 mg BID PEG Last administered on 11/21/17at 21:41; Start 06/16/17 at 21:00; Stop 11/23/17 at 11:24; Status DC Nifedipine (Procardia) 20 mg Q8HR PEG Last administered on 06/20/17 05:41; Start 06/16/17 at 14:00; Stop 06/20/17 at 14:35; Status DC Nifedipine (Procardia) 30 mg Q8HR .XX Last administered on 06/22/17 13:13; Start 06/20/17 at 22:00; Stop 06/22/17 at 13:14; Status DC Nifedipine (Procardia) 30 mg Q6HR .XX Last administered on 06/26/17 06:32; Start 06/22/17 at 18:00; Stop 06/26/17 at 11:22; Status DC Nifedipine (Procardia) 40 mg Q6HR PEG Last administered on 12/17/17at 11:55; Start 06/26/17 at 12:00; Stop 12/17/17 at 18:00; Status DC Sennosides (Senna Liq) 8.8 mg DAILY PEG Last administered on 10/17/17 10:02 ; Start 06/29/17 at 09:00; Status Future Hold Hydrochlorothiazide (Hydrodiuril) 25 mg DAILY PO Last administered on 07/07/17 08:49; Start 07/01/17 at 12:00; Stop 07/07/17 at 11:21; Status DC Hydrochlorothiazide (Hydrodiuril) 25 mg BID@ PEG Last administered on 07/21 17:17; Start 07/07/17 at 18:00; Stop 07/28/17 at 15:04; Status DC Potassium Bicarb/ Potassium Chloride (K-Lyte Cl Eff) 25 meq DAILY PEG Last administered on 07/22/17 09:54; Start 07/07/17 at 11:30; Stop 07/28/17 at 15:04 ; Status DC Hydrochlorothiazide (Hydrodiuril) 25 mg DAILY PO Last administered on 08:04; Start 08/04/17 at 12:30; Stop 08/18/17 at 07:50; Status DC Nystatin (Mycostatin Liq) 5 ml QID OTHER Last administered on 08/21/17 17:54 ; Start 08/13/17 at 18:00; Stop 08/21/17 at 18:00; Status DC Polyethylene Glycol (Miralax) 17 gm DAILY PRN PO severe constipation Last administered on 08/30/17 23:22; Start 08/17/17 at 08:30; Stop 12/09/17 at 09: 10; Status DC Hydralazine HCl (Apresoline) 100 mg Q8HR PEG Last administered on 08/19/17 06 :38; Start 08/18/17 at 14:00; Stop 08/19/17 at 07:53; Status DC Lisinopril (Prinivil) 20 mg BID PEG ; Start 08/18/17 at 09:00; Stop 08/19/17 at 07:53; Status DC Hydralazine HCl (Apresoline) 50 mg Q6HR PEG Last administered on 12/10/17 23:28 ; Start 08/19/17 at 12:00; Stop 12/11/17 at 04:19; Status DC Lisinopril (Prinivil) 10 mg BID PEG Last administered on 11/15/17 08:28; Start 08/19/17 at 09:00; Stop 11/15/17 at 10:41; Status DC Hydrochlorothiazide (Hydrodiuril) 25 mg DAILY PO Last administered on 17:12; Start 08/20/17 at 15:00; Stop 08/21/17 at 08:35; Status DC Nystatin (Mycostatin Liq) 5 ml QID OTHER Last administered on 09/02/17 21:12 ; Start 08/23/17 at 18:00; Stop 09/03/17 at 09:51; Status DC Hydrochlorothiazide (Hydrodiuril) 25 mg DAILY PO Last administered on 10:34; Start 08/29/17 at 11:15; Stop 09/03/17 at 09:51; Status DC Hydrochlorothiazide (Microzide) 12.5 mg DAILY PO Last administered on 09:03; Start 09/04/17 at 09:00; Stop 09/04/17 at 13:23; Status DC Nystatin (Mycostatin Liq) 5 ml QID SWISH-SWAL Last administered on 10/17/17 14:28; Start 09/07/17 at 13:00; Stop 10/17/17 at 15:32; Status DC Hydrochlorothiazide (Microzide) 12.5 mg DAILY PO Last administered on 08:12; Start 09/15/17 at 11:45; Stop 09/27/17 at 09:00; Status DC Hydrochlorothiazide (Hydrodiuril) 25 mg DAILY PO Last administered on 09:00; Start 09/27/17 at 09:15; Status Future hold Vancomycin HCl 1000 mg/Sodium Chloride 250 ml @ 250 mls/hr ONCE ONCE IV Last administered on 10/10/17 11:28; Start 10/10/17 at 10:00; Stop 10/10/17 at 10:59 ; Status DC Pharmacy Profile Note 0 ml @ 0 mls/hr UNSCH OTHER ; Start 10/10/17 at 09:00; Stop 10/17/17 at 15:26; Status DC Potassium Bicarb/ Potassium Chloride (K-Lyte Cl Eff) 50 meq ONCE ONCE PEG Last administered on 10/10/17 10:14; Start 10/10/17 at 09:30; Stop 10/10/17 at 09:31; Status DC Vancomycin HCl 1250 mg/Sodium Chloride 262.5 ml @ 250 mls/hr Q12H IV Last administered on 10/11/17 18:08; Start 10/10/17 at 18:00; Stop 10/11/17 at 21:55 ; Status DC Miscellaneous Information SPECIFIC LAB TO BE DRAWN:VANCO TROUGH DATE TO BE DRLanre.Lanre ONCE ONCE .XX Last administered on 10/11/17 17:20; Start 10/11/17 at 17 :45; Stop 10/11/17 at 17:46; Status DC Piperacillin Sod/ Tazobactam Sod 50 ml @ 100 mls/hr Q6HR IV ; Start 10/10/17 at 12:00; Stop 10/10/17 at 14:07; Status DC Piperacillin Sod/ Tazobactam Sod 50 ml @ 100 mls/hr Q6HR IV Last administered on 10/22/17 05:38; Start 10/10/17 at 15:00; Stop 10/22/17 at 08:29; Status DC Vancomycin HCl 1000 mg/Sodium Chloride 250 ml @ 250 mls/hr Q12H IV Last administered on 10/14/17 06:03; Start 10/12/17 at 06:00; Stop 10/14/17 at 13:01 ; Status DC Miscellaneous Information SPECIFIC LAB TO BE ONCE ONCE .XX Last administered on 10/14/17 05:45; Start 10/14/17 at 05:45; Stop 10/14/17 at 05:46 ; Status DC Collagenase (Santyl Oint) 1 applic BID TOPICAL Last administered on 10/18/17 21:00; Start 10/12/17 at 09:00; Stop 10/19/17 at 08:47; Status DC Potassium Chloride/Sodium Chloride 1,000 ml @ 100 mls/hr Q10H IV Last administered on 10/16/17 20:57; Start 10/13/17 at 09:00; Stop 10/17/17 at 04: 36; Status DC Fluconazole/ Sodium Chloride 100 ml @ 100 mls/hr Q24H IV Last administered on 10/15/17 12:49; Start 10/13/17 at 12:00; Stop 10/16/17 at 07:19; Status DC Iohexol (Omnipaque 350 Inj) 85 ml STK-MED ONCE IVCONTRAST Last administered on 10/13/17 12:29; Start 10/13/17 at 12:29; Stop 10/13/17 at 12:30; Status DC Potassium Chloride 100 ml @ 50 mls/hr Q2H IV Last administered on 10/14/17 12 :51; Start 10/14/17 at 08:30; Stop 10/14/17 at 12:29; Status DC Potassium Bicarb/ Potassium Chloride (K-Lyte Cl Eff) 50 meq ONCE ONCE PEG Last administered on 10/14/17 10:48; Start 10/14/17 at 08:15; Stop 10/14/17 at 08:17; Status DC Vancomycin HCl 1250 mg/Sodium Chloride 262.5 ml @ 250 mls/hr Q12H IV Last administered on 10/14/17 18:20; Start 10/14/17 at 18:00; Stop 10/15/17 at 09: 15; Status DC Miscellaneous Information SPECIFIC LAB TO BE DRAWN:VANCO TROUGH DATE TO BE DR... ONCE ONCE .XX ; Start 10/16/17 at 05:45; Stop 10/16/17 at 05:46; Status Cancel Potassium Bicarb/ Potassium Chloride (K-Lyte Cl Eff) 50 meq ONCE ONCE PO Last administered on 10/15/17 11:45; Start 10/15/17 at 10:00; Stop 10/15/17 at 10:01; Status DC Vancomycin HCl 1250 mg/Sodium Chloride 262.5 ml @ 250 mls/hr Q12H IV Last administered on 10/17/17 10:01; Start 10/15/17 at 10:00; Stop 10/17/17 at 15 :26; Status DC Miscellaneous Information SPECIFIC LAB TO BE DRAWN:VANCOMYCIN TROUGH DATE TO... ONCE ONCE .XX Last administered on 10/16/17 21:45; Start 10/16/17 at 21:45 ; Stop 10/16/17 at 21:46; Status DC Ciprofloxacin (Cipro) 500 mg Q12HR PEG Last administered on 10/18/17 21:00; Start 10/16/17 at 09:00; Stop 10/19/17 at 09:14; Status DC Potassium Chloride/Sodium Chloride 1,000 ml @ 100 mls/hr Q10H IV Last administered on 10/17/17 10:02; Start 10/17/17 at 08:00; Stop 10/17/17 at 18 :32; Status DC Hydromorphone HCl (Dilaudid Pf Inj) 2 mg ONCE ONCE IV PUSH Last administered on 10/17/17 12:50; Start 10/17/17 at 12:15; Stop 10/17/17 at 12:16; Status DC Sodium Hypochlorite (Dakin'S 0.5% Soln) 500 ml ONCE ONCE TOPICAL Last administered on 10/17/17 14:28; Start 10/17/17 at 13:30; Stop 10/17/17 at 13 :35; Status DC Sodium Hypochlorite (Dakin'S 0.25% Soln) 50 ml BID TOPICAL Last administered on 10/18/17 21:00; Start 10/17/17 at 21:00; Stop 10/19/17 at 08:47; Status DC Morphine Sulfate (Morphine Inj) 2 mg BID PRN IV PUSH painful dressing changes Last administered on 10/20/17 09:23; Start 10/17/17 at 15:00; Stop 10/20/17 at 16:23; Status DC Benztropine Mesylate (Cogentin Inj) 0.5 mg HS IV PUSH ; Start 10/17/17 at 21:00 ; Stop 10/17/17 at 21:00; Status DC Naloxone HCl (Narcan Inj) 0.4 mg UNSCH X1 PRN IV PUSH RESP DEPRESSION OR HYPOTENSION; Start 10/17/17 at 17:30; Stop 10/20/17 at 17:29; Status DC Baclofen (Lioresal) 5 mg ONCE ONCE PO Last administered on 10/17/17 17:45; Start 10/17/17 at 17:45; Stop 10/17/17 at 17:46; Status DC Miscellaneous (Pill Splitter) 1 ea UNSCH PRN OTHER SEE LABEL COMMENTS Last administered on 12/08/17at 20:45; Start 10/17/17 at 17:45 Sodium Chloride 1,000 ml @ 42 mls/hr [id number] IV Last administered on 06:00; Start 10/18/17 at 10:00; Stop 10/24/17 at 15:36; Status DC Collagenase (Santyl Oint) 1 applic BID TOPICAL Last administered on 11/14/17 07 :57; Start 10/19/17 at 10:00; Stop 11/17/17 at 09:01; Status DC Water (Free Water) 150 ml Q6HR G-TUBE Last administered on 12/25/17 05:50; Start 10/19/17 at 12:00 Morphine Sulfate (Morphine Inj) 2 mg BID PRN IV PUSH painful dressing changes Last administered on 10/22/17 09:40; Start 10/20/17 at 16:30; Stop 10/23/17 at 17:45; Status DC Sodium Chloride 500 ml @ 50 mls/hr Q10H IV ; Start 10/20/17 at 17:30; Stop at 17:56; Status DC Sodium Chloride 500 ml @ 1,000 mls/hr BOLUS ONCE IV Last administered on 18:00; Start 10/20/17 at 18:00; Stop 10/20/17 at 18:29; Status DC Diphenhydramine HCl (Benadryl Liq) 50 mg ONCE ONCE PO Last administered on 01:05; Start 10/22/17 at 00:15; Stop 10/22/17 at 00:18; Status DC Piperacillin Sod/ Tazobactam Sod 3.375 gm/Sodium Chloride 100 ml @ 100 mls/hr Q6HR IV Last administered on 10/23/17 17:24; Start 10/22/17 at 12:00; Stop 10/23/17 at 17:45; Status DC Diphenhydramine HCl (Benadryl Inj) 25 mg ONCE ONCE IM Last administered on 12/ 18/17at 17:54; Start 10/23/17 at 17:15; Stop 10/23/17 at 17:40; Status DC Potassium Bicarb/ Potassium Chloride (K-Lyte Cl Eff) 25 meq ONCE ONCE PO ; Start 10/23/17 at 17:45; Stop 10/23/17 at 17:57; Status DC Cefepime HCl 1000 mg/Sodium Chloride 100 ml @ 200 mls/hr Q12H IV Last administered on 11/10/17at 09:06; Start 10/23/17 at 20:00; Stop 11/10/17 at 19:59 ; Status DC Levofloxacin/ Dextrose 100 ml @ 100 mls/hr Q24H IV Last administered on 17:56; Start 10/24/17 at 18:00; Stop 11/10/17 at 17:59; Status DC Ketorolac Tromethamine (Toradol Inj) 15 mg DAILY IV PUSH Last administered on 10/28/17 13:45; Start 10/24/17 at 09:00; Stop 10/29/17 at 08:59; Status DC Prednisone (predniSONE LIQ) 10 mg BID PO ; Start 10/23/17 at 21:00; Stop 10/23 at 21:51; Status DC Potassium Bicarb/ Potassium Chloride (K-Lyte Cl Eff) 25 meq ONCE ONCE PEG Last administered on 10/23/17 18:02; Start 10/23/17 at 18:00; Stop 10/23/17 at 18:01; Status DC Prednisone (predniSONE LIQ) 10 mg BID G-TUBE Last administered on 10/24/17 09 :34; Start 10/24/17 at 09:00; Stop 10/24/17 at 15:36; Status DC Potassium Chloride/Sodium Chloride 1,000 ml @ 42 mls/hr [id number] IV Last administered on 10/25/17 11:37; Start 10/24/17 at 16:00; Stop 10/25/17 at 13 :32; Status DC Lisinopril (Prinivil) 10 mg BID PEG Last administered on 11/21/17at 21:41; Start 11/15/17 at 21:00; Stop 11/22/17 at 08:58; Status DC Sodium Chloride (NS Flush) 2 ml UNSCH PRN IV FLUSH FLUSH AFTER USING IV ACCESS Last administered on 12/11/17at 08:20; Start 11/17/17 at 10:15 Lisinopril (Prinivil) 5 mg BID PEG ; Start 11/22/17 at 09:15; Stop 11/23/17 at 11:24; Status DC Metoprolol Tartrate (Lopressor) 50 mg BID PEG Last administered on 11/23/17at 20 :50; Start 11/23/17 at 21:00; Stop 11/24/17 at 12:59; Status DC Metoprolol Tartrate (Lopressor) 25 mg BID PEG Last administered on 12/25/17at 09 :00; Start 11/24/17 at 21:00 Ceftriaxone Sodium 1000 mg/ Sodium Chloride 100 ml @ 200 mls/hr Q24H IV Last administered on 12/24/17at 08:43; Start 12/09/17 at 09:00; Stop 12/24/17 at 09:54 ; Status DC Polyethylene Glycol (Miralax) 17 gm DAILY PO Last administered on 12/14/17at 09: 08; Start 12/09/17 at 09:15; Stop 12/16/17 at 17:49; Status DC Hydralazine HCl (Apresoline) 50 mg Q6HR PEG Last administered on 12/12/17at 17:41 ; Start 12/11/17 at 06:00; Stop 12/12/17 at 19:14; Status DC Hydralazine HCl (Apresoline) 50 mg Q8HR PEG Last administered on 12/25/17at 05: 50; Start 12/12/17 at 22:00 Potassium Chloride/Dextrose/ Sod Cl 1,000 ml @ 84 mls/hr [id number] IV Last administered on 12/12/17at 20:40; Start 12/12/17 at 19:15; Stop 12/13/17 at 12:00; Status DC Diatrizoate Meglum/ Diatrizoate Sod ( Gastroview Liq) 120 ml STK-MED ONCE PEG ; Start 12/13/17 at 15:17; Stop 12/13/17 at 15:18; Status DC Potassium Bicarb/ Potassium Chloride (K-Lyte Cl Eff) 25 meq ONCE ONCE PO Last administered on 12/16/17at 09:56; Start 12/16/17 at 10:00; Stop 12/16/17 at 10:24; Status DC Polyethylene Glycol (Miralax) 17 gm DAILY PRN PO SEVERE CONSTIPATION; Start 08/23 at 18:00 Nifedipine (Procardia) 40 mg Q6HR .XX Last administered on 12/24/17at 17:35; Start 12/17/17 at 18:00 Oxycodone/ Acetaminophen (Percocet 5-325 Mg) 1 tab Q6H PRN PO PAIN 3 TO 5 Last administered on 12/23/17at 09:38; Start 12/22/17 at 15:00 Oxycodone/ Acetaminophen (Percocet 10-325 Mg) 1 tab Q6H PRN PO PAIN 6-10 Last administered on 12/22/17at 18:56; Start 12/22/17 at 15:00 Clonidine (Catapres-Tts 0.2 Mg Patch.7d) 1 patch Q7D T-DERMAL Last administered on 12/24/17at 12:34; Start 12/24/17 at 11:00 Miscellaneous Information 1 Q7D T-DERMAL ; Start 12/31/17 at 11:00 Albuterol/ Ipratropium (Duoneb Neb) 1 ampule STK-MED ONCE .ROUTE ; Start at 18:07; Stop 12/24/17 at 18:08; Status DC Date of Insertion: Nov 08, 2017 A/P Problem List: (1) Major neurocognitive disorder ICD Code: F03.90 - Unspecified dementia without behavioral disturbance (2) Hemiparesis ICD Code: G81.90 - Hemiplegia, unspecified affecting unspecified side Status: Acute (3) Intracranial hemorrhage ICD Code: I62.9 - Nontraumatic intracranial hemorrhage, unspecified Status: Chronic (4) Aphasia ICD Code: R47.01 - Aphasia Assessment and Plan Assessment and Plan Status post hemorrhagic CVA Continue PT, OT, and ST Patient was homeless prior to admit Poor access for inpatient rehabilitation Family desires aggressive measures for therapy and placement Independent funding unavailable for placement Long-term prognosis is poor No significant capacity for regaining full functionality Palliative care following UTI low-grade fevers Replace Cruz at this time Continue Rocephin 1 g IV daily Urine cultures pending. Currently growing gram-negative rods Repeat chest x-ray NOT ON ANY ANTIBIOTICS AT THIS TIME Dysphagia Related to intracranial bleed history Status post PEG placement on 05/09/17 Continue tube feeding Hypertension emergency Follow blood pressures. Well-controlled at this time Continue the following blood pressure meds: Nifedipine 40 mg every 6 hours Lisinopril 10 mg twice daily Apresoline 50 mg every 6 hours Catapres TTS 3 patch Metoprolol 100 mg twice daily HCTZ 25 mg daily Apresoline, clonidine, Vasotec as needed ALL BEING HELD DUE TO PARAMETERS Hyperglycemia Glucerna for tube feeds Follow blood sugars intermittently Xeroderma on bilateral feet Lac-Hydrin 12% Lotion continued. Coccyx pressure wound, wound vac in place. Wound care following. . Nutrition: Obtain accurate weight, Tube feeds at 40 cc per hour, will reconsult dietary. Discussed with nursing. DVT Prophylaxis: SCDs given history of recent intracranial hemorrhage Discharge Planning PENDING SAFE PLACEMENT AND FAMILY AGREEMENT Harry Vagras DO Dec 25, 2017 10:43
[2017-12-25] MEDS ORDERED: SODIUM HYPOCHLORITE 0.5% 500 ML BTL TOPICAL SCH (17:00)
[2017-12-25] MEDS: COLLAGENASE OINT 30 GM TUBE TOPICAL SCH (17:00)
--- NOTE | 2017-12-25 17:19 | PD.WCN.NOT ---
Wound Consult Description: Coccyx Communicated with: LINSEY Cleary 4th floor exterminator ventilation unit and Doctor Delisa for orders Recommendation: 1. Place wound VAC on hold 2.Please cleanse wound with normal saline 3. Apply Santyl ointment martha thickness to wound bed with Dakin's 1/4 strength or 0.125% solution moistened gauze lightly packed to wound bed. 4.Apply Calazime barrier cream to periwound. 5..Apply skin prep to intact skin before securing dressing with bordered gauze. Change dressing daily. Additional Information: Patient seen on 4th floor [facility] vent unit for follow up of wound VAC dressing on coccyx. Patient was turned with the assistance of Evin STILES 4th floor [facility]. and caption writer to R side for dressing change. Patient noted with stool and intact wound VAC dressing. Patient was cleansed of stool with incontinent care wipes and dressing was removed to reveal wound. Wound bed presents with ~40 % pale red non granulation tissue, ~50% yellow loosely adherent slough and and ~ 10% exposed bone. Wound Drainage is minimal, sero-sanguinous, with foul odor. Periwound is presents with moisture related partial thickness skin loss from 2 to 5 o'clock. Wound measures 5cm x 2.5cm x 1.8. Undermining is noted circumferentially deepest at 3 o'clock measuring 2.3cm. Cleansed wound with wound cleanser. Wound culture was obtained. wound was then packed with normal saline moistened gauze covered with 6x6 bordered gauze. Skin prep was applied to intact skin and Calazime barrier cream was applied to periwound moisture related breakdown before bordered gauze dressing was applied.New wound care recommendations are noted above.Please [place] wound care nurse for wound deterioration, Romelia Liz [facility] Dec 25, 2017 17:19
[2017-12-25] MEDS: SODIUM HYPOCHLORITE 0.25% 500 ML BTL TOPICAL SCH (17:30)
[2017-12-25 21:00] VITALS: BP 118/81; PULSE 87; RESP 14; TEMP 99.8; O2SAT 98
[2017-12-26 01:22] VITALS: BP 106/69; PULSE 70; RESP 16; TEMP 98.9
[2017-12-26] MEDS: NIFEdipine 10 MG CAP SCH ×4 (01:24→18:08)
[2017-12-26 04:39] VITALS: BP 114/73; PULSE 78; RESP 14; TEMP 98.8; O2SAT 96
[2017-12-26] MEDS: FREE WATER G-TUBE SCH ×4 (06:00→18:00)
[2017-12-26] MEDS: hydrALAZINE HCL 100 MG TAB PEG SCH ×2 (06:19→14:58)
[2017-12-26 08:00] VITALS: BP 100/68; PULSE 96; RESP 14; TEMP 99; O2SAT 99
[2017-12-26] MEDS: LANSOPRAZOLE SOLUTAB 30 MG TAB G-TUBE SCH (08:24)
[2017-12-26] MEDS: METOPROLOL TARTRATE 25 MG TAB PEG SCH ×3 (08:24→20:25)
[2017-12-26] MEDS: HYDROCHLOROTHIAZIDE 25 MG TAB PO SCH ×2 (08:24→08:41)
[2017-12-26] MEDS: LACTIC ACID (AMMONIUM LACTATE) 12% LOTION 225 GM BTL TOPICAL SCH ×2 (08:25→20:25)
[2017-12-26] MEDS: SODIUM HYPOCHLORITE 0.25% 500 ML BTL TOPICAL SCH (09:00)
[2017-12-26] MEDS: COLLAGENASE OINT 30 GM TUBE TOPICAL SCH (09:00)
[2017-12-26 12:00] VITALS: BP_SYST 100; BP_SYST 102; BP_DIAS 73; BP_DIAS 76
--- NOTE | 2017-12-26 17:21 | HHI.PR ---
Subjective Remarks seen today around 4 PM. Discussed with nursing. No acute events. Wound VAC has been put on hold by wound care. Appreciate assistance. Objective Vital Signs Date Time Temp Pulse Resp B/P (MAP) Pulse Ox O2 Delivery O2 Flow Rate FiO2 12/26/17 12:00 102/73 (83) 12/26/17 08:00 99.0 96 14 100/68 (79) 99 12/26/17 04:39 98.8 78 14 114/73 (87) 96 12/26/17 01:22 98.9 70 16 106/69 (81) 12/25/17 21:00 99.8 87 14 118/81 (93) 98 I/O 12/25/17 12/25/17 12/25/17 12/26/17 12/26/17 12/26/17 07:00 15:00 23:00 07:00 15:00 23:00 Intake Total 820 ml 852 ml 572 ml Output Total 250 ml 600 ml 200 ml 0 ml Balance 570 ml 252 ml 372 ml 0 ml Tube Feeding 520 ml 502 ml 572 ml Other 300 ml 350 ml Output Urine Total 250 ml 600 ml 200 ml Tube Feeding Residual Discard 0 ml Result Diagram: 12/23/17 0830 12/23/17 0847 Procedures No procedures performed Objective Remarks GENERAL: Patient lying in bed. Appears comfortable. Appears to answer no in regards to if she has pain. No other meaningful communication. no change today SKIN: Warm and dry. HEAD: Normocephalic. EYES: No scleral icterus. No injection or drainage. NECK: Supple, trachea midline. No JVD. CARDIOVASCULAR: Regular rate and rhythm without murmurs, gallops, or rubs. RESPIRATORY: Breath sounds equal bilaterally. No accessory muscle use. GASTROINTESTINAL: Abdomen soft, non-tender, nondistended. PEG tube in place without leakage. MUSCULOSKELETAL: No cyanosis, or edema. BACK: Nontender without obvious deformity. No CVA tenderness. A/P Assessment and Plan //Status post hemorrhagic CVA Continue PT, OT, and ST Patient was homeless prior to admit Poor access for inpatient rehabilitation Family desires aggressive measures for therapy and placement Independent funding unavailable for placement Long-term prognosis is poor No significant capacity for regaining full functionality Palliative care following //UTI low-grade fevers Replace Cruz at this time, urine culture grew Enterobacter, chest x-ray was stable, stop ceftriaxone. //Dysphagia Related to intracranial bleed history Status post PEG placement on 05/09/17 Continue tube feeding as below. //Hypertension emergency Follow blood pressures. [place] controlled, decrease Catapres patch to 0.2 mg daily. Continue the following blood pressure meds: Nifedipine 40 mg every 6 hours Lisinopril 10 mg twice daily Apresoline 50 mg every 6 hours Catapres TTS 3 patch Metoprolol 100 mg twice daily HCTZ 25 mg daily Apresoline, clonidine, Vasotec as needed = 12/26. Blood pressure over controlled. Further decrease clonidine patch. //Hyperglycemia Glucerna for tube feeds Follow blood sugars intermittently //Xeroderma on bilateral feet Lac-Hydrin 12% Lotion continued. //Coccyx pressure wound, wound care following. //Nutrition: Tube feeds changed to Glucerna 1.5 03/15 today, bolus feeding with Tyshawn. DVT Prophylaxis: SCDs given history of recent intracranial hemorrhage Discharge Planning Case management following. Appreciate assistance. Kevyn Cheema MD Dec 26, 2017 17:21
[2017-12-26] MEDS ORDERED: cloNIDine HCL 0.1 MG/24 HR PATCH T-DERMAL SCH (18:00)
[2017-12-26] MEDS ORDERED: REMOVE OLD CATAPRES (CLONIDINE) PATCH T-DERMAL SCH (18:00)
[2017-12-26 20:00] VITALS: BP 105/56; PULSE 93; RESP 16; TEMP 99; O2SAT 98
[2017-12-27] VITALS: BP 119/87; PULSE 64; RESP 16; TEMP 99.1
[2017-12-27] MEDS: NIFEdipine 10 MG CAP SCH ×2 (00:48→05:22)
[2017-12-27] MEDS: hydrALAZINE HCL 100 MG TAB PEG SCH ×4 (00:51→21:52)
[2017-12-27] MEDS: FREE WATER G-TUBE SCH ×4 (05:24→17:47)
[2017-12-27 08:00] VITALS: BP 112/82; PULSE 70; RESP 18; TEMP 99.3
[2017-12-27] MEDS: COLLAGENASE OINT 30 GM TUBE TOPICAL SCH (08:56)
[2017-12-27] MEDS: LANSOPRAZOLE SOLUTAB 30 MG TAB G-TUBE SCH (08:56)
[2017-12-27] MEDS: HYDROCHLOROTHIAZIDE 25 MG TAB PO SCH (08:56)
[2017-12-27] MEDS: LACTIC ACID (AMMONIUM LACTATE) 12% LOTION 225 GM BTL TOPICAL SCH ×2 (08:56→21:00)
[2017-12-27] MEDS: METOPROLOL TARTRATE 25 MG TAB PEG SCH ×2 (08:56→21:52)
[2017-12-27] MEDS: SODIUM HYPOCHLORITE 0.25% 500 ML BTL TOPICAL SCH (09:01)
[2017-12-27] MEDS: NIFEdipine 20 MG CAP SCH ×2 (12:55→17:47)
--- NOTE | 2017-12-27 15:04 | HHI.PR ---
Subjective Remarks Patient seen today at 7 AM. Discussed with nursing. No acute events. Patient continues nonverbal. Appears to deny pain however. Objective Vital Signs Date Time Temp Pulse Resp B/P (MAP) Pulse Ox O2 Delivery O2 Flow Rate FiO2 12/27/17 08:00 99.3 70 18 112/82 (92) 12/27/17 00:00 99.1 64 16 119/87 (98) 12/26/17 20:00 99.0 93 16 105/56 (72) 98 I/O 12/26/17 12/26/17 12/26/17 12/27/17 12/27/17 12/27/17 07:00 15:00 23:00 07:00 15:00 23:00 Intake Total 572 ml 542 ml 966 ml Output Total 200 ml 0 ml 900.0 ml 501 ml 0 ml Balance 372 ml 0 ml -358.0 ml 465 ml 0 ml Tube Feeding 572 ml Autotransfusion 542 ml 516 ml Other 450 ml Output Urine Total 200 ml 900 ml 500 ml Stool Total 1 ml Tube Feeding Residual Discard 0 ml 0 ml 0 ml Result Diagram: 12/23/1782912/23/17 0847 Procedures No procedures performed Objective Remarks GENERAL: Patient lying in bed. Appears comfortable. Appears to answer no in regards to if she has pain. No other meaningful communication. no change in exam. SKIN: Warm and dry. HEAD: Normocephalic. EYES: No scleral icterus. No injection or drainage. NECK: Supple, trachea midline. No JVD. CARDIOVASCULAR: Regular rate and rhythm without murmurs, gallops, or rubs. RESPIRATORY: Breath sounds equal bilaterally. No accessory muscle use. GASTROINTESTINAL: Abdomen soft, non-tender, nondistended. PEG tube in place without leakage. MUSCULOSKELETAL: No cyanosis, or edema. BACK: Nontender without obvious deformity. No CVA tenderness. A/P Assessment and Plan //Status post hemorrhagic CVA Continue PT, OT, and ST Patient was homeless prior to admit Poor access for inpatient rehabilitation Family desires aggressive measures for therapy and placement Independent funding unavailable for placement Long-term prognosis is poor No significant capacity for regaining full functionality Palliative care following //UTI low-grade fevers Replace Cruz at this time, urine culture grew Enterobacter, chest x-ray was stable, stop ceftriaxone. //Dysphagia Related to intracranial bleed history Status post PEG placement on 05/09/17 Continue tube feeding as below. //Hypertension emergency Follow blood pressures. [place] controlled, decrease Catapres patch to 0.2 mg daily. Continue the following blood pressure meds: Nifedipine 40 mg every 6 hours Lisinopril 10 mg twice daily Apresoline 50 mg every 6 hours Catapres TTS 3 patch Metoprolol 100 mg twice daily HCTZ 25 mg daily Apresoline, clonidine, Vasotec as needed = 12/27decreased clonidine patch 12/26. Blood pressure improved today. Continue to monitor. Plan to discontinue clonidine in the coming days. //Hyperglycemia Glucerna for tube feeds Follow blood sugars intermittently //Xeroderma on bilateral feet Lac-Hydrin 12% Lotion continued. //Coccyx pressure wound, wound care following. //Nutrition: Tube feeds changed to Glucerna 1.5 03/15 today, bolus feeding with Tyshawn. DVT Prophylaxis: SCDs given history of recent intracranial hemorrhage Discharge Planning Case management following. Appreciate assistance. Kevyn Cheema MD Dec 27, 2017 15:04
[2017-12-27 20:00] VITALS: BP 130/82; PULSE 74; RESP 17; TEMP 100
[2017-12-28] VITALS: BP 121/69; PULSE 77; RESP 17; TEMP 99.7
[2017-12-28] MEDS: NIFEdipine 20 MG CAP SCH ×5 (01:45→23:48)
[2017-12-28 04:00] VITALS: BP 95/67; PULSE 78; RESP 18; TEMP 99.5
[2017-12-28] MEDS: FREE WATER G-TUBE SCH ×5 (05:47→23:48)
[2017-12-28] MEDS: hydrALAZINE HCL 100 MG TAB PEG SCH ×3 (05:47→22:35)
[2017-12-28 08:00] VITALS: BP 110/69; PULSE 73; RESP 21; TEMP 99.7; O2SAT 98
[2017-12-28] MEDS: METOPROLOL TARTRATE 25 MG TAB PEG SCH ×2 (08:58→20:40)
[2017-12-28] MEDS: LANSOPRAZOLE SOLUTAB 30 MG TAB G-TUBE SCH (08:58)
[2017-12-28] MEDS: SODIUM HYPOCHLORITE 0.25% 500 ML BTL TOPICAL SCH (08:59)
[2017-12-28] MEDS: HYDROCHLOROTHIAZIDE 25 MG TAB PO SCH (08:59)
[2017-12-28] MEDS: LACTIC ACID (AMMONIUM LACTATE) 12% LOTION 225 GM BTL TOPICAL SCH ×2 (08:59→20:40)
[2017-12-28] MEDS: COLLAGENASE OINT 30 GM TUBE TOPICAL SCH (08:59)
[2017-12-28 12:00] VITALS: BP 107/43; PULSE 103; RESP 16; TEMP 97.8; O2SAT 98
[2017-12-28 16:00] VITALS: BP 109/74; PULSE 107; RESP 22; TEMP 98.4; O2SAT 98
[2017-12-28 20:41] VITALS: BP 113/81; PULSE 92; RESP 20; TEMP 100.1; O2SAT 95
--- NOTE | 2017-12-28 23:53 | HHI.PR ---
Subjective Remarks patient seen this afternoon around 1 PM. No acute changes per nursing. Patient nonverbal but does deny pain as before. Objective Vital Signs Date Time Temp Pulse Resp B/P (MAP) Pulse Ox O2 Delivery O2 Flow Rate FiO2 12/28/17 20:41 100.1 92 20 113/81 (92) 95 12/28/17 16:00 98.4 107 22 109/74 (86) 98 12/28/17 12:00 97.8 103 16 107/43 (64) 98 12/28/17 08:00 99.7 73 21 110/69 (83) 98 12/28/17 04:00 99.5 78 18 95/67 (76) 12/28/17 00:00 99.7 77 17 121/69 (86) I/O 12/28/17 12/28/17 12/28/17 12/29/17 12/29/17 12/29/17 07:00 15:00 23:00 07:00 15:00 23:00 Intake Total 580 ml 1350 ml Output Total 501 ml 0 ml 702.0 ml Balance 79 ml 0 ml 648.0 ml Tube Feeding 180 ml 1000 ml Other 400 ml 350 ml Output Urine Total 500 ml 700 ml Stool Total 1 ml 2 ml Tube Feeding Residual Discard 0 ml 0 ml Procedures No procedures performed Objective Remarks GENERAL: Patient lying in bed. Appears comfortable. Appears to answer no in regards to if she has pain. No other meaningful communication. no change on exam. SKIN: Warm and dry. HEAD: Normocephalic. EYES: No scleral icterus. No injection or drainage. NECK: Supple, trachea midline. No JVD. CARDIOVASCULAR: Regular rate and rhythm without murmurs, gallops, or rubs. RESPIRATORY: Breath sounds equal bilaterally. No accessory muscle use. GASTROINTESTINAL: Abdomen soft, non-tender, nondistended. PEG tube in place without leakage. MUSCULOSKELETAL: No cyanosis, or edema. BACK: Nontender without obvious deformity. No CVA tenderness. A/P Assessment and Plan //Status post hemorrhagic CVA Continue PT, OT, and ST Patient was homeless prior to admit Poor access for inpatient rehabilitation Family desires aggressive measures for therapy and placement Independent funding unavailable for placement Long-term prognosis is poor No significant capacity for regaining full functionality Palliative care following //UTI low-grade fevers Replace Cruz at this time, urine culture grew Enterobacter, chest x-ray was stable, stop ceftriaxone. //Dysphagia Related to intracranial bleed history Status post PEG placement on 05/09/17 Continue tube feeding as below. //Hypertension emergency Follow blood pressures. [place] controlled, decrease Catapres patch to 0.2 mg daily. Continue the following blood pressure meds: Nifedipine 40 mg every 6 hours Lisinopril 10 mg twice daily Apresoline 50 mg every 6 hours Catapres TTS 3 patch Metoprolol 100 mg twice daily HCTZ 25 mg daily Apresoline, clonidine, Vasotec as needed = 12/27decreased clonidine patch 12/26. Blood pressure improved today. Continue to monitor. Plan to discontinue clonidine in the coming days. =12/28. Blood pressure acceptable. Stop clonidine patch. //Hyperglycemia Glucerna for tube feeds Follow blood sugars intermittently //Xeroderma on bilateral feet Lac-Hydrin 12% Lotion continued. //Coccyx pressure wound, wound care following. //Nutrition: Tube feeds changed to Glucerna 1.5 03/15 today, bolus feeding with Tyshawn. DVT Prophylaxis: SCDs given history of recent intracranial hemorrhage Discharge Planning Case management following. Appreciate assistance. Kevyn Cheema MD Dec 28, 2017 23:53
[2017-12-29 00:13] VITALS: BP 116/79; PULSE 81; RESP 20; TEMP 98.7; O2SAT 92
[2017-12-29 04:00] VITALS: RESP 20; TEMP 98.3
[2017-12-29] MEDS: FREE WATER G-TUBE SCH ×4 (05:47→23:52)
[2017-12-29] MEDS: NIFEdipine 20 MG CAP SCH ×4 (05:47→23:52)
[2017-12-29] MEDS: hydrALAZINE HCL 100 MG TAB PEG SCH ×3 (05:47→22:24)
[2017-12-29 08:00] VITALS: BP 148/88; PULSE 88; RESP 20; TEMP 98.9; O2SAT 96
[2017-12-29] MEDS: oxyCODONE/ACETAMINOPHEN 5 MG/325 MG TAB PO PRN (09:29)
[2017-12-29] MEDS: LANSOPRAZOLE SOLUTAB 30 MG TAB G-TUBE SCH (09:29)
[2017-12-29] MEDS: COLLAGENASE OINT 30 GM TUBE TOPICAL SCH (09:30)
[2017-12-29] MEDS: LACTIC ACID (AMMONIUM LACTATE) 12% LOTION 225 GM BTL TOPICAL SCH ×2 (09:30→20:53)
[2017-12-29] MEDS: SODIUM HYPOCHLORITE 0.25% 500 ML BTL TOPICAL SCH (09:30)
[2017-12-29] MEDS: HYDROCHLOROTHIAZIDE 25 MG TAB PO SCH (10:28)
[2017-12-29] MEDS: METOPROLOL TARTRATE 25 MG TAB PEG SCH ×2 (10:28→20:53)
[2017-12-29 13:00] VITALS: BP 130/78; PULSE 74; RESP 20; O2SAT 95
[2017-12-29 17:25] VITALS: BP 140/88; PULSE 90; RESP 22; TEMP 98.2; O2SAT 98
[2017-12-29 20:00] VITALS: BP 119/79; PULSE 88; RESP 20; TEMP 98.1; O2SAT 99
--- NOTE | 2017-12-29 22:12 | HHI.PR ---
Subjective Remarks patient seen this afternoon around 2 PM. Discussed with nursing. No acute changes. Objective Vital Signs Date Time Temp Pulse Resp B/P (MAP) Pulse Ox O2 Delivery O2 Flow Rate FiO2 12/29/17 20:00 98.1 88 20 119/79 (92) 99 12/29/17 17:25 98.2 90 22 140/88 (105) 98 12/29/17 13:00 74 20 130/78 (95) 95 12/29/17 08:00 98.9 88 20 148/88 (108) 96 12/29/17 04:00 98.3 20 12/29/17 00:13 98.7 81 20 116/79 (91) 92 I/O 12/28/17 12/28/17 12/28/17 12/29/17 12/29/17 12/29/17 06:59 14:59 22:59 06:59 14:59 22:59 Intake Total 580 ml 1350 ml 1000 ml 1260 ml Output Total 501 ml 0 ml 702.0 ml 900 ml 0 ml 1100.0 ml Balance 79 ml 0 ml 648.0 ml 100 ml 0 ml 160.0 ml Intake Oral 0 ml Tube Feeding 180 ml 1000 ml 300 ml 960 ml Other 400 ml 350 ml 700 ml 300 ml Output Urine Total 500 ml 700 ml 900 ml 1100 ml Stool Total 1 ml 2 ml Tube Feeding Residual Discard 0 ml 0 ml 0 ml 0 ml # Bowel Movements 0 2 Procedures No procedures performed Objective Remarks GENERAL: Patient lying in bed. Appears comfortable. Appears to answer no in regards to if she has pain. No other meaningful communication. Again, no change on exam. SKIN: Warm and dry. HEAD: Normocephalic. EYES: No scleral icterus. No injection or drainage. NECK: Supple, trachea midline. No JVD. CARDIOVASCULAR: Regular rate and rhythm without murmurs, gallops, or rubs. RESPIRATORY: Breath sounds equal bilaterally. No accessory muscle use. GASTROINTESTINAL: Abdomen soft, non-tender, nondistended. PEG tube in place without leakage. MUSCULOSKELETAL: No cyanosis, or edema. BACK: Nontender without obvious deformity. No CVA tenderness. A/P Assessment and Plan //Status post hemorrhagic CVA Continue PT, OT, and ST Patient was homeless prior to admit Poor access for inpatient rehabilitation Family desires aggressive measures for therapy and placement Independent funding unavailable for placement Long-term prognosis is poor No significant capacity for regaining full functionality Palliative care following //UTI low-grade fevers Replace Cruz at this time, urine culture grew Enterobacter, chest x-ray was stable, stop ceftriaxone. //Dysphagia Related to intracranial bleed history Status post PEG placement on 05/09/17 Continue tube feeding as below. //Hypertension emergency Follow blood pressures. Garwin controlled, decrease Catapres patch to 0.2 mg daily. Continue the following blood pressure meds: Nifedipine 40 mg every 6 hours Lisinopril 10 mg twice daily Apresoline 50 mg every 6 hours Catapres TTS 3 patch Metoprolol 100 mg twice daily HCTZ 25 mg daily Apresoline, clonidine, Vasotec as needed = 12/27decreased clonidine patch 12/26. Blood pressure improved today. Continue to monitor. Plan to discontinue clonidine in the coming days. =12/28. Blood pressure acceptable. Stop clonidine patch. = 12/29. Blood pressure acceptable. Continue current regimen. //Hyperglycemia Glucerna for tube feeds Follow blood sugars intermittently //Xeroderma on bilateral feet Lac-Hydrin 12% Lotion continued. //Coccyx pressure wound, wound care following. //Nutrition: Tube feeds changed to Glucerna 1.5 03/15 today, bolus feeding with Tyshawn. DVT Prophylaxis: SCDs given history of recent intracranial hemorrhage Discharge Planning Case management following. Appreciate assistance. Kevyn Cheema MD Dec 29, 2017 22:12
[2017-12-30] VITALS: BP 114/89; PULSE 97; RESP 18; O2SAT 99
[2017-12-30 04:00] VITALS: PULSE 93; RESP 17; TEMP 97.2; O2SAT 98
[2017-12-30] MEDS: NIFEdipine 20 MG CAP SCH ×4 (05:14→23:37)
[2017-12-30] MEDS: FREE WATER G-TUBE SCH ×4 (05:14→23:39)
[2017-12-30] MEDS: hydrALAZINE HCL 100 MG TAB PEG SCH ×3 (05:14→21:27)
[2017-12-30 08:00] VITALS: BP 130/80; PULSE 74; RESP 20; TEMP 98.1; O2SAT 98
[2017-12-30] MEDS: SODIUM HYPOCHLORITE 0.25% 500 ML BTL TOPICAL SCH (09:41)
[2017-12-30] MEDS: oxyCODONE/ACETAMINOPHEN 5 MG/325 MG TAB PO PRN ×2 (09:41→21:28)
[2017-12-30] MEDS: LANSOPRAZOLE SOLUTAB 30 MG TAB G-TUBE SCH (09:41)
[2017-12-30] MEDS: LACTIC ACID (AMMONIUM LACTATE) 12% LOTION 225 GM BTL TOPICAL SCH ×2 (09:42→21:27)
[2017-12-30] MEDS: COLLAGENASE OINT 30 GM TUBE TOPICAL SCH (09:42)
[2017-12-30] MEDS: METOPROLOL TARTRATE 25 MG TAB PEG SCH ×2 (11:47→21:27)
[2017-12-30] MEDS: HYDROCHLOROTHIAZIDE 25 MG TAB PO SCH (11:47)
[2017-12-30 12:00] VITALS: BP 128/76; PULSE 98; RESP 20; TEMP 98.1; O2SAT 98
--- NOTE | 2017-12-30 12:08 | HHI.PR ---
Subjective Remarks Follow-up for placement Patient is nonverbal but seems to understand. Her nurse had no complaints. She is at the bedside during the interview. No acute events. She remains afebrile. Objective Vitals Vital Signs Date Time Temp Pulse Resp B/P (MAP) Pulse Ox O2 Delivery O2 Flow Rate FiO2 12/30/17 04:00 97.2 93 17 98 12/30/17 00:00 97 18 114/89 (97) 99 12/29/17 20:00 98.1 88 20 119/79 (92) 99 12/29/17 17:25 98.2 90 22 140/88 (105) 98 12/29/17 13:00 74 20 130/78 (95) 95 I/O 12/29/17 12/29/17 12/29/17 12/30/17 12/30/17 12/30/17 07:00 15:00 23:00 07:00 15:00 23:00 Intake Total 1000 ml 1260 ml 860 ml Output Total 900 ml 0 ml 1100.0 ml 800 ml Balance 100 ml 0 ml 160.0 ml 60 ml Intake Oral 0 ml Tube Feeding 300 ml 960 ml 240 ml Tube Irrigant 320 ml Other 700 ml 300 ml 300 ml Output Urine Total 900 ml 1100 ml 800 ml Tube Feeding Residual Discard 0 ml 0 ml # Bowel Movements 0 2 0 Objective Remarks GENERAL: in NAD CARDIOVASCULAR: Regular rate and rhythm without murmurs, gallops, or rubs. RESPIRATORY: Breath sounds equal bilaterally. No accessory muscle use. GASTROINTESTINAL: Abdomen soft, non-tender, nondistended. PEG tube in place. MUSCULOSKELETAL: Bilateral Lower extremity contractures. Patient seems to be developing right upper extremity contracture. Procedures Peg Tube placed 05/08/17 (Dr. De Los Santos) Medications and IVs Current Medications Sodium Chloride (NS Flush) 2 ml UNSCH PRN IVF FLUSH AFTER USING IV ACCESS; Start 04/10/17 at 20:00; Stop 04/10/17 at 22:12; Status DC Nicardipine HCl 25 mg/Sodium Chloride 260 ml @ 0 mls/hr TITRATE IV Last administered on 04/10/17t 21:34; Start 04/10/17 at 20:00; Stop 04/10/17 at 22:12; Status DC Sodium Chloride 1,000 ml @ 84 mls/hr [id number] IV Last administered on 04/11/17 07:47; Start 04/10/17 at 22:00; Stop 04/11/17 at 15:41; Status DC Sodium Chloride (NS Flush) 2 ml UNSCH PRN .XX FLUSH AFTER USING IV ACCESS Last administered on 05/01/17 04:49; Start 04/10/17 at 22:00; Stop 05/26/17 at 10:07 ; Status DC Sodium Chloride (NS Flush) 2 ml BID .XX Last administered on 05/26/17 09:54; Start 04/11/17 at 09:00; Stop 05/26/17 at 10:07; Status DC Acetaminophen (Tylenol) 650 mg Q6H PRN PO PAIN 1-10 AND/OR FEVER >101F Last administered on 04/26/17 13:46; Start 04/10/17 at 22:00; Stop 06/16/17 at 10:03 ; Status DC Morphine Sulfate (Morphine Inj) 2 mg Q2H PRN IV PAIN SCALE 6 TO 10 Last administered on 05/25/17 21:09; Start 04/10/17 at 22:00; Stop 05/26/17 at 10:07 ; Status DC Famotidine (Pepcid Inj) 20 mg Q12HR IV PUSH Last administered on 05/04/17 08: 37; Start 04/11/17 at 09:00; Stop 05/04/17 at 14:13; Status DC Ondansetron HCl (Zofran Inj) 4 mg Q6H PRN IV NAUSEA OR VOMITING; Start 04/10/17 at 22:00; Stop 05/26/17 at 10:07; Status DC Metoclopramide HCl (Reglan Inj) 10 mg Q6H PRN IV NAUSEA OR VOMITING; Start 04/10 at 22:00; Stop 05/26/17 at 10:07; Status DC Prochlorperazine (Compazine Supp) 25 mg Q12H PRN RECTAL NAUSEA OR VOMITING; Start 04/10/17 at 22:00; Stop 05/26/17 at 10:07; Status DC Albuterol/ Ipratropium (Duoneb Neb) 1 ampule Q2HR NEB PRN INH WHEEZING; Start 04/10/17 at 22:00; Stop 05/26/17 at 10:07; Status DC Miscellaneous Information 1 [id number] XX Last administered on 04/10/17 22:00; Start 04/10/17 at 22:00; Stop 05/26/17 at 10:07; Status DC Chlorhexidine Gluconate (Chlorhexidine 2% Cloth) Taper DAILY@04 TOP Last administered on 05/21/17 04:00; Start 04/11/17 at 04:00; Stop 05/26/17 at 10:07 ; Status DC Chlorhexidine Gluconate (Chlorhexidine 2% Cloth) 3 pack UNSCH PRN TOP HYGIENIC CARE; Start 04/10/17 at 22:00; Stop 05/26/17 at 10:07; Status DC Senna/Docusate Sodium (Evelyn-Colace) 1 tab BID PO Last administered on 09:20; Start 04/11/17 at 09:00; Stop 06/16/17 at 10:03; Status DC Magnesium Hydroxide (Milk Of Magnesia Liq) 30 ml Q12H PRN PO MILD - MODERATE CONSTIPATION; Start 04/10/17 at 22:00; Stop 05/26/17 at 10:07; Status DC Sennosides (Senokot) 17.2 mg Q12H PRN PO MODERATE - SEVERE CONSTIPATION Last administered on 05/08/17 21:29; Start 04/10/17 at 22:00; Stop 05/26/17 at 10:07; Status DC Bisacodyl (Dulcolax Supp) 10 mg DAILY PRN RECTAL SEVERE CONSITIPATION; Start at 22:00 Lactulose (Lactulose Liq) 30 ml DAILY PRN PO SEVERE CONSITIPATION Last administered on 04/24/17 08:44; Start 04/10/17 at 22:00; Stop 06/16/17 at 10:03 ; Status DC Nicardipine HCl 25 mg/Sodium Chloride 260 ml @ 0 mls/hr TITRATE IV Last administered on 04/14/17 04:35; Start 04/10/17 at 22:15; Stop 04/14/17 at 12:18; Status DC Iohexol (Omnipaque 350 Inj) 70 ml STK-MED ONCE IV Last administered on 22:35; Start 04/10/17 at 22:35; Stop 04/10/17 at 22:36; Status DC Labetalol HCl (Trandate Inj) 20 mg Q4H PRN IV PUSH sbp>160 Last administered on 04/17/17 02:24; Start 04/12/17 at 08:15; Stop 04/25/17 at 18:06; Status DC Hydralazine HCl (Apresoline Inj) 20 mg Q4H PRN IV PUSH sbp>150 Last administered on 05/17/17 20:39; Start 04/12/17 at 08:15; Stop 05/18/17 at 14:44 ; Status DC Amlodipine Besylate (Norvasc) 5 mg DAILY PO Last administered on 04/14/17 08:55 ; Start 04/12/17 at 09:00; Stop 04/15/17 at 06:44; Status DC Metoclopramide HCl (Reglan Inj) 5 mg Q8HR IV PUSH Last administered on 14:02; Start 04/12/17 at 16:00; Stop 05/04/17 at 14:13; Status DC Potassium Chloride 100 ml @ 50 mls/hr Q2H PRN IV For Potassium 2.8 - 3.2 mEq/L ; Start 04/13/17 at 11:45; Stop 04/25/17 at 11:32; Status DC Potassium Chloride 100 ml @ 50 mls/hr Q2H PRN IV For Potassium 2.8 - 3.2 mEq/ L Last administered on 04/14/17 13:06; Start 04/13/17 at 11:45; Stop 04/25/17 at 11:32; Status DC Potassium Bicarb/ Potassium Chloride (K-Lyte Cl Eff) 50 meq UNSCH PRN PO For Potassium 3.3 - 3.5 mEq/L Last administered on 04/19/17 14:03; Start 04/13/17 at 11:45; Stop 04/25/17 at 11:32; Status DC Potassium Chloride 100 ml @ 25 mls/hr UNSCH PRN IV For Potassium 3.3 - 3.5 mEq /L; Start 04/13/17 at 11:45; Stop 04/25/17 at 11:32; Status DC Potassium Chloride 100 ml @ 50 mls/hr Q2H PRN IV For Potassium 3.3 - 3.5 mEq/L ; Start 04/13/17 at 11:45; Stop 04/25/17 at 11:32; Status DC Magnesium Sulfate 4 gm/Sodium Chloride 100 ml @ 50 mls/hr UNSCH PRN IV For Magnesium 0.9 - 1.1 mg/dL; Start 04/13/17 at 11:45; Stop 04/25/17 at 11:32; Status DC Magnesium Oxide (Mag-Ox) 800 mg UNSCH PRN PO For Magnesium 1.2 - 1.6 mg/dL; Start 04/13/17 at 11:45; Stop 04/25/17 at 11:32; Status DC Magnesium Sulfate 2 gm/Sodium Chloride 100 ml @ 50 mls/hr UNSCH PRN IV For Magnesium 1.2 - 1.6 mg/dL; Start 04/13/17 at 11:45; Stop 04/25/17 at 11:32; Status DC Potassium Phosphate (K-Phos) 2,000 mg Q4H PRN PO For Phosphorus < 2.5 mg/dL; Start 04/13/17 at 11:45; Stop 04/25/17 at 11:32; Status DC Sodium Phosphate 30 mmol/Sodium Chloride 250 ml @ 42 mls/hr UNSCH PRN IV For Phosphorus < 2.5 mg/dL; Start 04/13/17 at 11:45; Stop 04/25/17 at 11:32; Status DC Potassium Phosphate (K-Phos) 2,000 mg UNSCH PRN PO/TUBE SEE LABEL COMMENTS; Start 04/13/17 at 11:45; Stop 04/25/17 at 11:32; Status DC Potassium Phosphate 30 mmol/ Sodium Chloride 260 ml @ 42 mls/hr UNSCH PRN IV SEE LABEL COMMENTS; Start 04/13/17 at 11:45; Stop 04/25/17 at 11:32; Status DC Metoprolol Tartrate (Lopressor) 25 mg Q8HR PO Last administered on 04/14/17 05: 40; Start 04/13/17 at 14:00; Stop 04/14/17 at 12:18; Status DC Hydralazine HCl (Apresoline) 50 mg Q8H PO Last administered on 04/14/17 03:23; Start 04/13/17 at 12:00; Stop 04/14/17 at 09:23; Status DC Hydralazine HCl (Apresoline) 100 mg Q8H PO Last administered on 04/14/17 11:25 ; Start 04/14/17 at 12:00; Stop 04/14/17 at 19:47; Status DC Metoprolol Tartrate (Lopressor) 50 mg Q8HR PO Last administered on 04/24/17 05 :27; Start 04/14/17 at 14:00; Stop 04/24/17 at 09:28; Status DC Hydralazine HCl (Apresoline Inj) 20 mg ONCE ONCE IV PUSH Last administered on 04/14/17 17:42; Start 04/14/17 at 17:15; Stop 04/14/17 at 17:32; Status DC Labetalol HCl (Trandate Inj) 10 mg ONCE ONCE IV PUSH Last administered on 17:42; Start 04/14/17 at 17:15; Stop 04/14/17 at 17:32; Status DC Clonidine (Catapres) 0.3 mg ONCE ONCE PO Last administered on 04/14/17 17:50; Start 04/14/17 at 17:15; Stop 04/14/17 at 17:32; Status DC Clonidine (Catapres) 0.2 mg Q8HR PO ; Start 04/14/17 at 22:00; Stop 04/14/17 at 22 :00; Status DC Clonidine (Catapres) 0.3 mg Q8HR PO Last administered on 04/26/17 05:55; Start 04/14/17 at 22:00; Stop 04/26/17 at 14:39; Status DC Hydralazine HCl (Apresoline) 100 mg Q6HR PO Last administered on 04/15/17 10: 39; Start 04/15/17 at 00:00; Stop 04/15/17 at 13:10; Status DC Amlodipine Besylate (Norvasc) 10 mg DAILY PO Last administered on 06/12/17 07: 39; Start 04/14/17 at 19:45; Stop 06/12/17 at 07:56; Status DC Enalaprilat (Vasotec Inj) 1.25 mg Q6H PRN IV PUSH SBP>160, DBP>90 Last administered on 05/13/17 01:22; Start 04/15/17 at 01:15; Stop 05/26/17 at 10:07 ; Status DC Nitroglycerin (Nitroglycerin 2% Oint) 2 inch Q6HR PRN TOPICAL SBP>160, DBP>90 Last administered on 04/16/17 12:34; Start 04/15/17 at 06:00; Stop 05/26/17 at 10:07; Status DC Hydralazine HCl (Apresoline) 100 mg Q8HR PO Last administered on 04/26/17 05: 55; Start 04/15/17 at 14:00; Stop 04/26/17 at 14:39; Status DC Lisinopril (Prinivil) 20 mg DAILY PO Last administered on 04/16/17 08:32; Start 04/15/17 at 13:30; Stop 04/16/17 at 14:58; Status DC Lisinopril (Prinivil) 20 mg ONCE ONCE PO Last administered on 04/16/17 15:27 ; Start 04/16/17 at 15:00; Stop 04/16/17 at 15:03; Status DC Lisinopril (Prinivil) 40 mg BID PO Last administered on 04/20/17 09:09; Start 04/16/17 at 21:00; Stop 04/20/17 at 16:42; Status DC Hydrochlorothiazide (Hydrodiuril) 25 mg DAILY PO Last administered on 08:59; Start 04/17/17 at 17:45; Stop 04/18/17 at 16:28; Status DC Hydrochlorothiazide (Hydrodiuril) 25 mg ONCE ONCE PO Last administered on 04/18 16:51; Start 04/18/17 at 16:30; Stop 04/18/17 at 16:32; Status DC Hydrochlorothiazide (Hydrodiuril) 50 mg DAILY PO Last administered on 08:50; Start 04/19/17 at 09:00; Stop 04/25/17 at 18:06; Status DC Lisinopril (Prinivil) 30 mg BID PO Last administered on 04/25/17 08:50; Start 04/20/17 at 21:00; Stop 04/25/17 at 18:06; Status DC Miscellaneous (Pill Splitter) 1 ea UNSCH PRN OTHER SEE LABEL COMMENTS; Start at 17:15; Stop 10/18/17 at 09:37; Status DC Ceftriaxone Sodium 1000 mg/ Sodium Chloride 100 ml @ 200 mls/hr HS IV Last administered on 04/29/17 22:04; Start 04/22/17 at 21:30; Stop 04/30/17 at 12:37 ; Status DC Metoprolol Tartrate (Lopressor) 50 mg BID PO Last administered on 05/26/17 09: 54; Start 04/24/17 at 21:00; Stop 05/26/17 at 10:12; Status DC Lisinopril (Prinivil) 20 mg DAILY PO Last administered on 04/27/17 09:52; Start 04/26/17 at 09:00; Stop 04/28/17 at 00:21; Status DC Clonidine (Catapres) 0.2 mg Q8HR PO Last administered on 05/26/17 05:57; Start 04/26/17 at 22:00; Stop 05/26/17 at 10:12; Status DC Hydralazine HCl (Apresoline) 50 mg Q8HR PO Last administered on 04/27/17 12:45 ; Start 04/26/17 at 22:00; Stop 04/27/17 at 15:31; Status DC Hydralazine HCl (Apresoline) 100 mg Q8HR PO Last administered on 06/10/17 06:18 ; Start 04/27/17 at 22:00; Stop 06/10/17 at 12:03; Status DC Lisinopril (Prinivil) 40 mg DAILY PO Last administered on 06/16/17 09:20; Start 04/28/17 at 09:00; Stop 06/16/17 at 10:03; Status DC Famotidine (Pepcid) 20 mg BID NG Last administered on 05/09/17 09:36; Start at 21:00; Stop 05/09/17 at 12:49; Status DC Lactic Acid (Lac-Hydrin 12% Lotion) 1 applic BID TOPICAL Last administered on at 09:42; Start 05/04/17 at 14:00 Cefazolin Sodium 1000 mg/Sodium Chloride 100 ml @ 200 mls/hr [employer] IV ; Start 05/06/17 at 10:30; Stop 05/09/17 at 10:29; Status DC Cefazolin Sodium (Ancef Inj) 1,000 mg STK-MED ONCE IV Last administered on 15:00; Start 05/08/17 at 15:00; Stop 05/08/17 at 15:08; Status DC Propofol (Diprivan 200 Mg/20 ml Inj) 150 mg STK-MED ONCE IV PUSH ; Start at 15:27; Stop 05/08/17 at 15:45; Status DC Lansoprazole (Prevacid Odt) 30 mg DAILY G-TUBE Last administered on 12/30/17at 09:41; Start 05/10/17 at 09:00 Nystatin (Mycostatin Liq) 5 ml QID SWISH-SWAL Last administered on 05/22/17 09:36; Start 05/14/17 at 13:00; Stop 05/22/17 at 11:19; Status DC Hydralazine HCl (Apresoline) 25 mg Q4HR PRN PEG for sbp greater than 150 Last administered on 11/04/17 14:28; Start 05/18/17 at 14:45 Clonidine (Catapres) 0.1 mg Q6H PRN PO for SBP greater than 170 Last administered on 05/22/17 02:48; Start 05/21/17 at 07:30; Stop 05/26/17 at 10:12 ; Status DC Nystatin (Mycostatin Liq) 5 ml QID SWISH-SWAL Last administered on 05/28/17 09:43; Start 05/23/17 at 13:00; Stop 05/28/17 at 10:02; Status DC Ondansetron HCl (Zofran Liq) 4 mg Q6H PRN PEG NAUSEA OR VOMITING; Start at 10:00 Metoprolol Tartrate (Lopressor) 75 mg BID PO Last administered on 05/28/17 09: 43; Start 05/26/17 at 21:00; Stop 05/28/17 at 09:58; Status DC Clonidine (Catapres-Tts 0.2 Mg Patch.7d) 1 patch Q7D T-DERMAL Last administered on 06/02/17 11:27; Start 05/26/17 at 12:00; Stop 06/06/17 at 12:47 ; Status DC Miscellaneous Information 1 Q7D T-DERMAL Last administered on 06/02/17 11:28; Start 06/02/17 at 12:00; Stop 06/06/17 at 13:31; Status DC Metoprolol Tartrate (Lopressor) 100 mg BID PO Last administered on 06/16/17 09 :20; Start 05/28/17 at 21:00; Stop 06/16/17 at 10:03; Status DC Fluconazole (Diflucan) 200 mg DAILY PO Last administered on 06/03/17 08:44; Start 05/28/17 at 11:00; Stop 06/04/17 at 08:59; Status DC Levofloxacin (Levaquin Liq) 750 mg Q24H PEG ; Start 05/29/17 at 11:00; Stop at 15:05; Status DC Levofloxacin (Levaquin Liq) 750 mg DAILY@16 PEG Last administered on 16:20; Start 05/29/17 at 16:00; Stop 06/04/17 at 16:01; Status DC Sodium Chloride 500 ml @ 500 mls/hr BOLUS ONCE IV Last administered on 15:43; Start 06/01/17 at 11:30; Stop 06/01/17 at 12:29; Status DC Sodium Chloride 1,000 ml @ 100 mls/hr Q10H IV Last administered on 06/03/17 06:17; Start 06/02/17 at 11:15; Stop 06/03/17 at 10:16; Status DC Clonidine (Catapres-Tts 0.3 Mg Patch.7d) 1 patch Q7D T-DERMAL Last administered on 12/19/17at 17:32; Start 06/06/17 at 15:00; Stop 12/24/17 at 09:54 ; Status DC Miscellaneous Information 1 Q7D T-DERMAL Last administered on 12/19/17at 15:00; Start 06/06/17 at 15:00; Stop 12/24/17 at 09:54; Status DC Hydralazine HCl (Apresoline) 100 mg Q6HR PO Last administered on 06/16/17 06: 20; Start 06/10/17 at 18:00; Stop 06/16/17 at 10:03; Status DC Nifedipine (Procardia Xl) 60 mg DAILY PO Last administered on 06/15/17 10:04; Start 06/12/17 at 09:00; Stop 06/16/17 at 10:03; Status DC Acetaminophen (Tylenol) 650 mg Q6H PRN PEG PAIN 1-10 AND/OR FEVER >101F Last administered on 10/17/17 19:29; Start 06/16/17 at 16:00; Status Future Hold Senna/Docusate Sodium (Evelyn-Colace) 1 tab BID PEG Last administered on 09:42; Start 06/16/17 at 21:00; Stop 06/28/17 at 10:38; Status DC Hydralazine HCl (Apresoline) 100 mg Q6HR PEG Last administered on 08/17/17 22 :43; Start 06/16/17 at 12:00; Stop 08/18/17 at 07:50; Status DC Lactulose (Lactulose Liq) 30 ml DAILY PRN PEG SEVERE CONSITIPATION; Start 06/16 at 10:00; Stop 08/17/17 at 08:28; Status DC Lisinopril (Prinivil) 40 mg DAILY PEG Last administered on 08/16/17 08:04; Start 06/17/17 at 09:00; Stop 08/18/17 at 07:50; Status DC Metoprolol Tartrate (Lopressor) 100 mg BID PEG Last administered on 11/21/17at 21:41; Start 06/16/17 at 21:00; Stop 11/23/17 at 11:24; Status DC Nifedipine (Procardia) 20 mg Q8HR PEG Last administered on 06/20/17 05:41; Start 06/16/17 at 14:00; Stop 06/20/17 at 14:35; Status DC Nifedipine (Procardia) 30 mg Q8HR .XX Last administered on 06/22/17 13:13; Start 06/20/17 at 22:00; Stop 06/22/17 at 13:14; Status DC Nifedipine (Procardia) 30 mg Q6HR .XX Last administered on 06/26/17 06:32; Start 06/22/17 at 18:00; Stop 06/26/17 at 11:22; Status DC Nifedipine (Procardia) 40 mg Q6HR PEG Last administered on 12/17/17at 11:55; Start 06/26/17 at 12:00; Stop 12/17/17 at 18:00; Status DC Sennosides (Senna Liq) 8.8 mg DAILY PEG Last administered on 10/17/17 10:02 ; Start 06/29/17 at 09:00; Status Future Hold Hydrochlorothiazide (Hydrodiuril) 25 mg DAILY PO Last administered on 07/07/17 08:49; Start 07/01/17 at 12:00; Stop 07/07/17 at 11:21; Status DC Hydrochlorothiazide (Hydrodiuril) 25 mg BID@ PEG Last administered on 07/21 17:17; Start 07/07/17 at 18:00; Stop 07/28/17 at 15:04; Status DC Potassium Bicarb/ Potassium Chloride (K-Lyte Cl Eff) 25 meq DAILY PEG Last administered on 07/22/17 09:54; Start 07/07/17 at 11:30; Stop 07/28/17 at 15:04 ; Status DC Hydrochlorothiazide (Hydrodiuril) 25 mg DAILY PO Last administered on 08:04; Start 08/04/17 at 12:30; Stop 08/18/17 at 07:50; Status DC Nystatin (Mycostatin Liq) 5 ml QID OTHER Last administered on 08/21/17 17:54 ; Start 08/13/17 at 18:00; Stop 08/21/17 at 18:00; Status DC Polyethylene Glycol (Miralax) 17 gm DAILY PRN PO severe constipation Last administered on 08/30/17 23:22; Start 08/17/17 at 08:30; Stop 12/09/17 at 09: 10; Status DC Hydralazine HCl (Apresoline) 100 mg Q8HR PEG Last administered on 08/19/17 06 :38; Start 08/18/17 at 14:00; Stop 08/19/17 at 07:53; Status DC Lisinopril (Prinivil) 20 mg BID PEG ; Start 08/18/17 at 09:00; Stop 08/19/17 at 07:53; Status DC Hydralazine HCl (Apresoline) 50 mg Q6HR PEG Last administered on 12/10/17 23:28 ; Start 08/19/17 at 12:00; Stop 12/11/17 at 04:19; Status DC Lisinopril (Prinivil) 10 mg BID PEG Last administered on 11/15/17 08:28; Start 08/19/17 at 09:00; Stop 11/15/17 at 10:41; Status DC Hydrochlorothiazide (Hydrodiuril) 25 mg DAILY PO Last administered on 17:12; Start 08/20/17 at 15:00; Stop 08/21/17 at 08:35; Status DC Nystatin (Mycostatin Liq) 5 ml QID OTHER Last administered on 09/02/17 21:12 ; Start 08/23/17 at 18:00; Stop 09/03/17 at 09:51; Status DC Hydrochlorothiazide (Hydrodiuril) 25 mg DAILY PO Last administered on 10:34; Start 08/29/17 at 11:15; Stop 09/03/17 at 09:51; Status DC Hydrochlorothiazide (Microzide) 12.5 mg DAILY PO Last administered on 09:03; Start 09/04/17 at 09:00; Stop 09/04/17 at 13:23; Status DC Nystatin (Mycostatin Liq) 5 ml QID SWISH-SWAL Last administered on 10/17/17 14:28; Start 09/07/17 at 13:00; Stop 10/17/17 at 15:32; Status DC Hydrochlorothiazide (Microzide) 12.5 mg DAILY PO Last administered on 08:12; Start 09/15/17 at 11:45; Stop 09/27/17 at 09:00; Status DC Hydrochlorothiazide (Hydrodiuril) 25 mg DAILY PO Last administered on 11:47; Start 09/27/17 at 09:15; Status Future hold Vancomycin HCl 1000 mg/Sodium Chloride 250 ml @ 250 mls/hr ONCE ONCE IV Last administered on 10/10/17 11:28; Start 10/10/17 at 10:00; Stop 10/10/17 at 10:59 ; Status DC Pharmacy Profile Note 0 ml @ 0 mls/hr UNSCH OTHER ; Start 10/10/17 at 09:00; Stop 10/17/17 at 15:26; Status DC Potassium Bicarb/ Potassium Chloride (K-Lyte Cl Eff) 50 meq ONCE ONCE PEG Last administered on 10/10/17 10:14; Start 10/10/17 at 09:30; Stop 10/10/17 at 09:31; Status DC Vancomycin HCl 1250 mg/Sodium Chloride 262.5 ml @ 250 mls/hr Q12H IV Last administered on 10/11/17 18:08; Start 10/10/17 at 18:00; Stop 10/11/17 at 21:55 ; Status DC Miscellaneous Information SPECIFIC LAB TO BE DRAWN:VANCO TROUGH DATE TO BE DR..Lanre ONCE ONCE .XX Last administered on 10/11/17 17:20; Start 10/11/17 at 17 :45; Stop 10/11/17 at 17:46; Status DC Piperacillin Sod/ Tazobactam Sod 50 ml @ 100 mls/hr Q6HR IV ; Start 10/10/17 at 12:00; Stop 10/10/17 at 14:07; Status DC Piperacillin Sod/ Tazobactam Sod 50 ml @ 100 mls/hr Q6HR IV Last administered on 10/22/17 05:38; Start 10/10/17 at 15:00; Stop 10/22/17 at 08:29; Status DC Vancomycin HCl 1000 mg/Sodium Chloride 250 ml @ 250 mls/hr Q12H IV Last administered on 10/14/17 06:03; Start 10/12/17 at 06:00; Stop 10/14/17 at 13:01 ; Status DC Miscellaneous Information SPECIFIC LAB TO BE BEKA... ONCE ONCE .XX Last administered on 10/14/17 05:45; Start 10/14/17 at 05:45; Stop 10/14/17 at 05:46 ; Status DC Collagenase (Santyl Oint) 1 applic BID TOPICAL Last administered on 10/18/17 21:00; Start 10/12/17 at 09:00; Stop 10/19/17 at 08:47; Status DC Potassium Chloride/Sodium Chloride 1,000 ml @ 100 mls/hr Q10H IV Last administered on 10/16/17 20:57; Start 10/13/17 at 09:00; Stop 10/17/17 at 04: 36; Status DC Fluconazole/ Sodium Chloride 100 ml @ 100 mls/hr Q24H IV Last administered on 10/15/17 12:49; Start 10/13/17 at 12:00; Stop 10/16/17 at 07:19; Status DC Iohexol (Omnipaque 350 Inj) 85 ml STK-MED ONCE IVCONTRAST Last administered on 10/13/17 12:29; Start 10/13/17 at 12:29; Stop 10/13/17 at 12:30; Status DC Potassium Chloride 100 ml @ 50 mls/hr Q2H IV Last administered on 10/14/17 12 :51; Start 10/14/17 at 08:30; Stop 10/14/17 at 12:29; Status DC Potassium Bicarb/ Potassium Chloride (K-Lyte Cl Eff) 50 meq ONCE ONCE PEG Last administered on 10/14/17 10:48; Start 10/14/17 at 08:15; Stop 10/14/17 at 08:17; Status DC Vancomycin HCl 1250 mg/Sodium Chloride 262.5 ml @ 250 mls/hr Q12H IV Last administered on 10/14/17 18:20; Start 10/14/17 at 18:00; Stop 10/15/17 at 09: 15; Status DC Miscellaneous Information SPECIFIC LAB TO BE DRAWN:VANCO TROUGH DATE TO BE DR... ONCE ONCE .XX ; Start 10/16/17 at 05:45; Stop 10/16/17 at 05:46; Status Cancel Potassium Bicarb/ Potassium Chloride (K-Lyte Cl Eff) 50 meq ONCE ONCE PO Last administered on 10/15/17 11:45; Start 10/15/17 at 10:00; Stop 10/15/17 at 10:01; Status DC Vancomycin HCl 1250 mg/Sodium Chloride 262.5 ml @ 250 mls/hr Q12H IV Last administered on 10/17/17 10:01; Start 10/15/17 at 10:00; Stop 10/17/17 at 15 :26; Status DC Miscellaneous Information SPECIFIC LAB TO BE DRAWN:VANCOMYCIN TROUGH DATE TO... ONCE ONCE .XX Last administered on 10/16/17 21:45; Start 10/16/17 at 21:45 ; Stop 10/16/17 at 21:46; Status DC Ciprofloxacin (Cipro) 500 mg Q12HR PEG Last administered on 10/18/17 21:00; Start 10/16/17 at 09:00; Stop 10/19/17 at 09:14; Status DC Potassium Chloride/Sodium Chloride 1,000 ml @ 100 mls/hr Q10H IV Last administered on 10/17/17 10:02; Start 10/17/17 at 08:00; Stop 10/17/17 at 18 :32; Status DC Hydromorphone HCl (Dilaudid Pf Inj) 2 mg ONCE ONCE IV PUSH Last administered on 10/17/17 12:50; Start 10/17/17 at 12:15; Stop 10/17/17 at 12:16; Status DC Sodium Hypochlorite (Dakin'S 0.5% Soln) 500 ml ONCE ONCE TOPICAL Last administered on 10/17/17 14:28; Start 10/17/17 at 13:30; Stop 10/17/17 at 13 :35; Status DC Sodium Hypochlorite (Dakin'S 0.25% Soln) 50 ml BID TOPICAL Last administered on 10/18/17 21:00; Start 10/17/17 at 21:00; Stop 10/19/17 at 08:47; Status DC Morphine Sulfate (Morphine Inj) 2 mg BID PRN IV PUSH painful dressing changes Last administered on 10/20/17 09:23; Start 10/17/17 at 15:00; Stop 10/20/17 at 16:23; Status DC Benztropine Mesylate (Cogentin Inj) 0.5 mg HS IV PUSH ; Start 10/17/17 at 21:00 ; Stop 10/17/17 at 21:00; Status DC Naloxone HCl (Narcan Inj) 0.4 mg UNSCH X1 PRN IV PUSH RESP DEPRESSION OR HYPOTENSION; Start 10/17/17 at 17:30; Stop 10/20/17 at 17:29; Status DC Baclofen (Lioresal) 5 mg ONCE ONCE PO Last administered on 10/17/17 17:45; Start 10/17/17 at 17:45; Stop 10/17/17 at 17:46; Status DC Miscellaneous (Pill Splitter) 1 ea UNSCH PRN OTHER SEE LABEL COMMENTS Last administered on 12/08/17 20:45; Start 10/17/17 at 17:45 Sodium Chloride 1,000 ml @ 42 mls/hr [id number] IV Last administered on 06:00; Start 10/18/17 at 10:00; Stop 10/24/17 at 15:36; Status DC Collagenase (Santyl Oint) 1 applic BID TOPICAL Last administered on 11/14/17 07 :57; Start 10/19/17 at 10:00; Stop 11/17/17 at 09:01; Status DC Water (Free Water) 150 ml Q6HR G-[id number] Last administered on 12/30/17 05:14; Start 10/19/17 at 12:00 Morphine Sulfate (Morphine Inj) 2 mg BID PRN IV PUSH painful dressing changes Last administered on 10/22/17 09:40; Start 10/20/17 at 16:30; Stop 10/23/17 at 17:45; Status DC Sodium Chloride 500 ml @ 50 mls/hr Q10H IV ; Start 10/20/17 at 17:30; Stop at 17:56; Status DC Sodium Chloride 500 ml @ 1,000 mls/hr BOLUS ONCE IV Last administered on 18:00; Start 10/20/17 at 18:00; Stop 10/20/17 at 18:29; Status DC Diphenhydramine HCl (Benadryl Liq) 50 mg ONCE ONCE PO Last administered on 01:05; Start 10/22/17 at 00:15; Stop 10/22/17 at 00:18; Status DC Piperacillin Sod/ Tazobactam Sod 3.375 gm/Sodium Chloride 100 ml @ 100 mls/hr Q6HR IV Last administered on 10/23/17 17:24; Start 10/22/17 at 12:00; Stop 10/23/17 at 17:45; Status DC Diphenhydramine HCl (Benadryl Inj) 25 mg ONCE ONCE IM Last administered on 17:54; Start 12/18/17 at 17:15; Stop 10/23/17 at 17:40; Status DC Potassium Bicarb/ Potassium Chloride (K-Lyte Cl Eff) 25 meq ONCE ONCE PO ; Start 10/23/17 at 17:45; Stop 10/23/17 at 17:57; Status DC Cefepime HCl 1000 mg/Sodium Chloride 100 ml @ 200 mls/hr Q12H IV Last administered on 11/10/17 09:06; Start 10/23/17 at 20:00; Stop 11/10/17 at 19:59 ; Status DC Levofloxacin/ Dextrose 100 ml @ 100 mls/hr Q24H IV Last administered on 17:56; Start 10/24/17 at 18:00; Stop 11/10/17 at 17:59; Status DC Ketorolac Tromethamine (Toradol Inj) 15 mg DAILY IV PUSH Last administered on 10/28/17 13:45; Start 10/24/17 at 09:00; Stop 10/29/17 at 08:59; Status DC Prednisone (predniSONE LIQ) 10 mg BID PO ; Start 10/23/17 at 21:00; Stop 10/23 at 21:51; Status DC Potassium Bicarb/ Potassium Chloride (K-Lyte Cl Eff) 25 meq ONCE ONCE PEG Last administered on 10/23/17 18:02; Start 10/23/17 at 18:00; Stop 10/23/17 at 18:01; Status DC Prednisone (predniSONE LIQ) 10 mg BID G-TUBE Last administered on 10/24/17 09 :34; Start 10/24/17 at 09:00; Stop 10/24/17 at 15:36; Status DC Potassium Chloride/Sodium Chloride 1,000 ml @ 42 mls/hr [id number] IV Last administered on 10/25/17 11:37; Start 10/24/17 at 16:00; Stop 10/25/17 at 13 :32; Status DC Lisinopril (Prinivil) 10 mg BID PEG Last administered on 11/21/17at 21:41; Start 11/15/17 at 21:00; Stop 11/22/17 at 08:58; Status DC Sodium Chloride (NS Flush) 2 ml UNSCH PRN IV FLUSH FLUSH AFTER USING IV ACCESS Last administered on 2/5/18at 08:20; Start 11/17/17 at 10:15 Lisinopril (Prinivil) 5 mg BID PEG ; Start 11/22/17 at 09:15; Stop 11/23/17 at 11:24; Status DC Metoprolol Tartrate (Lopressor) 50 mg BID PEG Last administered on 11/23/17at 20 :50; Start 11/23/17 at 21:00; Stop 11/24/17 at 12:59; Status DC Metoprolol Tartrate (Lopressor) 25 mg BID PEG Last administered on 12/30/17at 11 :47; Start 11/24/17 at 21:00 Ceftriaxone Sodium 1000 mg/ Sodium Chloride 100 ml @ 200 mls/hr Q24H IV Last administered on 12/24/17at 08:43; Start 12/09/17 at 09:00; Stop 12/24/17 at 09:54 ; Status DC Polyethylene Glycol (Miralax) 17 gm DAILY PO Last administered on 12/14/17at 09: 08; Start 12/09/17 at 09:15; Stop 12/16/17 at 17:49; Status DC Hydralazine HCl (Apresoline) 50 mg Q6HR PEG Last administered on 12/12/17at 17:41 ; Start 12/11/17 at 06:00; Stop 12/12/17 at 19:14; Status DC Hydralazine HCl (Apresoline) 50 mg Q8HR PEG Last administered on 12/30/17at 05: 14; Start 12/12/17 at 22:00 Potassium Chloride/Dextrose/ Sod Cl 1,000 ml @ 84 mls/hr [id number] IV Last administered on 12/12/17at 20:40; Start 12/12/17 at 19:15; Stop 12/13/17 at 12:00; Status DC Diatrizoate Meglum/ Diatrizoate Sod ( Gastroview Liq) 120 ml STK-MED ONCE PEG ; Start 12/13/17 at 15:17; Stop 12/13/17 at 15:18; Status DC Potassium Bicarb/ Potassium Chloride (K-Lyte Cl Eff) 25 meq ONCE ONCE PO Last administered on 12/16/17at 09:56; Start 12/16/17 at 10:00; Stop 12/16/17 at 10:24; Status DC Polyethylene Glycol (Miralax) 17 gm DAILY PRN PO SEVERE CONSTIPATION; Start 08/23 at 18:00 Nifedipine (Procardia) 40 mg Q6HR .XX Last administered on 12/27/17at 05:22; Start 12/17/17 at 18:00; Stop 12/27/17 at 09:37; Status DC Oxycodone/ Acetaminophen (Percocet 5-325 Mg) 1 tab Q6H PRN PO PAIN 3 TO 5 Last administered on 12/30/17at 09:41; Start 12/22/17 at 15:00 Oxycodone/ Acetaminophen (Percocet 10-325 Mg) 1 tab Q6H PRN PO PAIN 6-10 Last administered on 12/22/17at 18:56; Start 12/22/17 at 15:00 Clonidine (Catapres-Tts 0.2 Mg Patch.7d) 1 patch Q7D T-DERMAL Last administered on 12/24/17at 12:34; Start 12/24/17 at 11:00; Stop 12/26/17 at 17:20 ; Status DC Miscellaneous Information 1 Q7D T-DERMAL ; Start 12/31/17 at 11:00; Stop at 11:00; Status DC Albuterol/ Ipratropium (Duoneb Neb) 1 ampule STK-MED ONCE .ROUTE ; Start at 18:07; Stop 12/24/17 at 18:08; Status DC Collagenase (Santyl Oint) 1 applic DAILY TOPICAL Last administered on at 09:42; Start 12/25/17 at 17:00 Sodium Hypochlorite (Dakin'S 0.5% Soln) 500 ml DAILY TOPICAL ; Start 12/25/17 at 17:00; Stop 12/25/17 at 17:51; Status DC Sodium Hypochlorite (Dakin'S 0.25% Soln) 500 ml DAILY TOPICAL Last administered on 12/30/17 09:41; Start 12/25/17 at 17:30 Clonidine (Catapres-Tts 0.1mg Patch.7d) 1 patch Q7D T-DERMAL Last administered on 12/26/17at 18:09; Start 12/26/17 at 18:00; Stop 12/28/17 at 23:53; Status DC Miscellaneous Information 1 Q7D T-DERMAL Last administered on 12/26/17at 18:00; Start 12/26/17 at 18:00; Stop 12/28/17 at 23:53; Status DC Nifedipine (Procardia) 40 mg Q6HR .XX Last administered on 12/30/17at 11:47; Start 12/27/17 at 12:00 Date of Insertion: Nov 08, 2017 A/P Problem List: (1) Major neurocognitive disorder ICD Code: F03.90 - Unspecified dementia without behavioral disturbance (2) Hemiparesis ICD Code: G81.90 - Hemiplegia, unspecified affecting unspecified side Status: Acute (3) Intracranial hemorrhage ICD Code: I62.9 - Nontraumatic intracranial hemorrhage, unspecified Status: Chronic (4) Aphasia ICD Code: R47.01 - Aphasia Assessment and Plan This is a 62-year-old female who presented with hemorrhagic CVA History of hemorrhagic CVA -Continue PT, OT, and ST -Poor prognosis. Patient does not participate in therapy. -Palliative care following. Difficulty replacement. UTI -Patient completed treatment with ceftriaxone. Last urine cultures grew Enterobacter. Remains afebrile. Dysphagia -Continue to CVA. -Status post PEG placement on 05/09/17 -Continue tube feeding as below. Hypertension emergency -Resolved. Patient currently on Nifedipine 40 mg every 6 hours, Lisinopril 10 mg twice daily, Apresoline 50 mg every 6 hours, Catapres TTS 3 patch, Metoprolol 100 mg twice daily, HCTZ 25 mg daily, and Apresoline, clonidine, Vasotec as needed -12/27decreased clonidine patch 12/26. Blood pressure improved today. Continue to monitor. Plan to discontinue clonidine in the coming days. Hyperglycemia -Glucerna for tube feeds -Follow blood sugars intermittently Xeroderma on bilateral feet -Lac-Hydrin 12% Lotion continued. -Coccyx pressure wound, wound care following. Nutrition: - Tube feeds changed to Glucerna 1.5 /10 today, bolus feeding with Tyshawn. DVT Prophylaxis: SCDs given history of recent intracranial hemorrhage Discharge Planning Very poor prognosis. Patient does not display any meaningful involvement with therapy. Awaiting placement. In the meantime patient will receive therapy here. Barbara Locke MD Dec 30, 2017 12:08
[2017-12-30 16:00] VITALS: BP 141/76; PULSE 80; RESP 20; TEMP 98.1; O2SAT 98
[2017-12-30 20:00] VITALS: BP 112/66; PULSE 96; RESP 18; TEMP 97.3; O2SAT 94
[2017-12-31] VITALS (8 sets, daily range): BP systolic 98–124; BP diastolic 53–93; PULSE 66–103; RESP 16–20; TEMP 98.8–101.3; O2SAT 95–99
[2017-12-31] MEDS: NIFEdipine 20 MG CAP SCH ×3 (04:44→18:00)
[2017-12-31] MEDS: hydrALAZINE HCL 100 MG TAB PEG SCH ×3 (04:44→22:15)
[2017-12-31] MEDS: FREE WATER G-TUBE SCH ×3 (04:45→17:03)
[2017-12-31] MEDS: oxyCODONE/ACETAMINOPHEN 10 MG/325 MG TAB PO PRN (04:45)
[2017-12-31] MEDS: HYDROCHLOROTHIAZIDE 25 MG TAB PO SCH (08:29)
[2017-12-31] MEDS: METOPROLOL TARTRATE 25 MG TAB PEG SCH ×2 (08:29→20:51)
[2017-12-31] MEDS: LANSOPRAZOLE SOLUTAB 30 MG TAB G-TUBE SCH (08:29)
[2017-12-31] MEDS: LACTIC ACID (AMMONIUM LACTATE) 12% LOTION 225 GM BTL TOPICAL SCH ×2 (08:29→20:51)
[2017-12-31] MEDS: SODIUM HYPOCHLORITE 0.25% 500 ML BTL TOPICAL SCH (08:29)
[2017-12-31] MEDS: COLLAGENASE OINT 30 GM TUBE TOPICAL SCH (08:30)
[2017-12-31] MEDS: SODIUM CHLORIDE 0.9% FLUSH 10 ML FLUSH IV FLUSH PRN (08:57)
--- NOTE | 2017-12-31 09:05 | HHI.PR ---
Subjective Remarks In bed responding to vocal stimuli. Smiling. At baseline nonverbal. Doesn't appear in acute distress. No events overnight. Discussed with the nurse Objective Vitals Vital Signs Date Time Temp Pulse Resp B/P (MAP) Pulse Ox O2 Delivery O2 Flow Rate FiO2 12/31/17 08:03 98.8 93 16 102/72 (82) 98 12/31/17 05:45 18 12/31/17 05:00 98.8 12/31/17 04:00 101.3 66 18 115/83 (94) 95 12/31/17 00:00 100.1 100 20 100/70 (80) 98 12/30/17 22:28 18 12/30/17 20:00 97.3 96 18 112/66 (81) 94 Manual Cuff/Auscultation 12/30/17 16:00 98.1 80 20 141/76 (97) 98 12/30/17 12:00 98.1 98 20 128/76 (93) 98 I/O 12/30/17 12/30/17 12/30/17 12/31/17 12/31/17 12/31/17 07:00 15:00 23:00 07:00 15:00 23:00 Intake Total 860 ml 1600 ml 200 ml 390 ml Output Total 800 ml 0 ml 550 ml 650 ml Balance 60 ml 0 ml 1050 ml -450 ml 390 ml Tube Feeding 240 ml 1200 ml 240 ml Tube Irrigant 320 ml Other 300 ml 400 ml 200 ml 150 ml Output Urine Total 800 ml 550 ml 650 ml Tube Feeding Residual Discard 0 ml # Bowel Movements 0 2 1 Imaging Last Impressions Abdomen X-Ray 12/13/17 0000 Signed Impressions: Service Date/Time: Wednesday, December 13, 2017 14:17 - CONCLUSION: PEG tube in stomach.. Harry Dumas MD FACR Chest X-Ray 12/11/17 0000 Signed Impressions: Service Date/Time: Monday, December 11, 2017 11:21 - CONCLUSION: Minimal patchiness within the right lung base. Stable cardiomegaly. Degenerative changes and scoliosis of the thoracic spine. Denny Hart MD Upper Extremity Ultrasound 11/06/17 0000 Signed Impressions: Service Date/Time: Monday, November 06, 2017 14:17 - CONCLUSION: Normal examination. K. Byron Perez MD Pelvis CT 10/13/17 0000 Signed Impressions: Service Date/Time: Friday, October 13, 2017 12:02 - CONCLUSION: 1. Decubitus ulcer with small abscess in the right posterior perineal region measuring 3.1 x 4.6 cm. There is also a small abscess posterior and to the left of the rectum measuring 3.2 x 2.3 cm. Jann Weber MD Head CT 04/25/17 0000 Signed Impressions: Service Date/Time: Tuesday, April 25, 2017 18:02 - CONCLUSION: 1. Evolving left thalamic hematoma. No new hemorrhage. Adi Quarles MD Neck CTA 04/10/17 0000 Signed Impressions: Service Date/Time: Monday, April 10, 2017 22:28 - CONCLUSION: The internal carotid arteries are normal bilaterally. No significant atherosclerotic disease is noted. Eliud Du MD Head CTA 04/10/17 0000 Signed Impressions: Service Date/Time: Monday, April 10, 2017 22:50 - CONCLUSION: Mild dilatation of the basilar tip without discrete aneurysm. Some narrowing of the left middle cerebral branch after the bifurcation. Prominent left thalamic hemorrhage. Eliud Du MD Objective Remarks GENERAL: Patient lying in bed, appears comfortable. Nods yes/no to questions. SKIN: Pressure ulcers, Coccyx with wound vac. HEAD: Normocephalic. EYES: No scleral icterus. No injection or drainage. NECK: Supple, trachea midline. No JVD. CARDIOVASCULAR: Regular rate and rhythm without murmurs, gallops, or rubs. RESPIRATORY: Breath sounds equal bilaterally. No accessory muscle use. GASTROINTESTINAL: Abdomen soft, non-tender, nondistended. PEG tube in place without leakage. MUSCULOSKELETAL: No cyanosis, or edema. BACK: Nontender without obvious deformity. No CVA tenderness. Procedures Peg Tube placed 05/08/17 (Dr. De Los Santos) Date of Insertion: Nov 08, 2017 A/P Problem List: (1) Major neurocognitive disorder ICD Code: F03.90 - Unspecified dementia without behavioral disturbance (2) Hemiparesis ICD Code: G81.90 - Hemiplegia, unspecified affecting unspecified side Status: Acute (3) Intracranial hemorrhage ICD Code: I62.9 - Nontraumatic intracranial hemorrhage, unspecified Status: Chronic (4) Aphasia ICD Code: R47.01 - Aphasia Assessment and Plan This is a 62-year-old female who presented with hemorrhagic CVA History of hemorrhagic CVA -Continue PT, OT, and ST -Poor prognosis. Patient does not participate in therapy. -Palliative care following. Difficulty replacement. UTI -Patient completed treatment with ceftriaxone. Last urine cultures grew Enterobacter. Remains afebrile. Dysphagia -Continue to CVA. -Status post PEG placement on 05/09/17 -Continue tube feeding as below. Hypertension emergency -Resolved. Patient currently on Nifedipine 40 mg every 6 hours, Lisinopril 10 mg twice daily, Apresoline 50 mg every 6 hours, Catapres TTS 3 patch, Metoprolol 100 mg twice daily, HCTZ 25 mg daily, and Apresoline, clonidine, Vasotec as needed -12/27decreased clonidine patch 12/26. Blood pressure improved today. Continue to monitor. Plan to discontinue clonidine in the coming days. Hyperglycemia -Glucerna for tube feeds -Follow blood sugars intermittently Xeroderma on bilateral feet -Lac-Hydrin 12% Lotion continued. Coccyx pressure wound, wound care following. Nutrition: - Tube feeds changed to Glucerna 1.5 , bolus feeding with Tyshawn. DVT Prophylaxis: SCDs given history of recent intracranial hemorrhage Discharge Planning Very poor prognosis. Patient does not display any meaningful involvement with therapy. Difficult DC. Awaiting placement, CM ff. In the meantime patient will receive therapy here. Gina Delatorre MD Dec 31, 2017 09:05
[2017-12-31] MEDS ORDERED: REMOVE OLD CATAPRES (CLONIDINE) PATCH T-DERMAL SCH (11:00)
[2017-12-31] MEDS: oxyCODONE/ACETAMINOPHEN 5 MG/325 MG TAB PO PRN (14:34)
[2018-01-01] VITALS: BP 109/78; PULSE 97; RESP 16; TEMP 101.1; O2SAT 98
[2018-01-01] MEDS: NIFEdipine 20 MG CAP SCH ×4 (00:37→17:18)
[2018-01-01 04:00] VITALS: BP 118/89; PULSE 120; RESP 20; TEMP 98.9; O2SAT 98
[2018-01-01] MEDS: hydrALAZINE HCL 100 MG TAB PEG SCH ×3 (05:47→22:00)
[2018-01-01] MEDS: FREE WATER G-TUBE SCH ×4 (05:47→16:15)
[2018-01-01 08:00] VITALS: BP 96/61; PULSE 131; RESP 14; TEMP 100.9; O2SAT 96
[2018-01-01] MEDS: HYDROCHLOROTHIAZIDE 25 MG TAB PO SCH (08:17)
[2018-01-01] MEDS: METOPROLOL TARTRATE 25 MG TAB PEG SCH ×2 (08:17→21:22)
[2018-01-01] MEDS: LANSOPRAZOLE SOLUTAB 30 MG TAB G-TUBE SCH (08:55)
[2018-01-01] MEDS: LACTIC ACID (AMMONIUM LACTATE) 12% LOTION 225 GM BTL TOPICAL SCH ×2 (08:55→21:00)
[2018-01-01] MEDS: SODIUM HYPOCHLORITE 0.25% 500 ML BTL TOPICAL SCH (08:55)
[2018-01-01] MEDS: COLLAGENASE OINT 30 GM TUBE TOPICAL SCH (08:55)
[2018-01-01 12:04] VITALS: BP 100/68; PULSE 98; RESP 14; TEMP 99; O2SAT 98
--- NOTE | 2018-01-01 15:00 | HHI.PR ---
Subjective Remarks Patient resting in bed, open eyes, does not answer question or follow commands No fever or chills discussed with the nurse, no acute event overnight Objective Vitals Vital Signs Date Time Temp Pulse Resp B/P (MAP) Pulse Ox O2 Delivery O2 Flow Rate FiO2 01/01/18 12:04 99.0 98 14 100/68 (79) 98 01/01/18 08:00 100.9 131 14 96/61 (73) 96 01/01/18 04:00 98.9 120 20 118/89 (99) 98 01/01/18 00:00 101.1 97 16 109/78 (88) 98 12/31/17 22:12 96 17 116/93 (101) 96 12/31/17 20:00 100.6 103 18 109/77 (88) 99 12/31/17 16:00 100.0 73 17 124/76 (92) 99 I/O 12/31/17 12/31/17 12/31/17 01/01/18 01/01/18 01/01/18 07:00 15:00 23:00 07:00 15:00 23:00 Intake Total 200 ml 780 ml 780 ml 775 ml Output Total 650 ml 700 ml 1100 ml Balance -450 ml 780 ml 80 ml -325 ml Tube Feeding 480 ml 480 ml 240 ml Tube Irrigant 235 ml Other 200 ml 300 ml 300 ml 300 ml Output Urine Total 650 ml 700 ml 1100 ml # Bowel Movements 1 1 1 Objective Remarks GENERAL: Well-developed patient. Open eyes do not answer question or follow commands SKIN: Warm and dry. HEAD: Normocephalic. EYES: No scleral icterus. No injection or drainage. NECK: trachea midline. No JVD. CARDIOVASCULAR: Regular rate and rhythm. No murmur appreciated. RESPIRATORY: Fair air entry. No accessory muscle use. GASTROINTESTINAL: Abdomen soft, non-tender, nondistended. MUSCULOSKELETAL: No cyanosis, or edema. NEURO: Open eyes, Procedures Peg Tube placed 05/08/17 (Dr. De Los Santos) Date of Insertion: Nov 08, 2017 A/P Problem List: (1) Major neurocognitive disorder ICD Code: F03.90 - Unspecified dementia without behavioral disturbance (2) Hemiparesis ICD Code: G81.90 - Hemiplegia, unspecified affecting unspecified side Status: Acute (3) Intracranial hemorrhage ICD Code: I62.9 - Nontraumatic intracranial hemorrhage, unspecified Status: Chronic (4) Aphasia ICD Code: R47.01 - Aphasia Assessment and Plan This is a 62-year-old female who presented with hemorrhagic CVA 01/01: Fever of 101.1 and 100.9: Patient previously had a positive culture for Pseudomonas, Escherichia coli and Enterobacter in the urine, will do blood culture, UA, chest x-ray, will start Levaquin and re consult ID History of hemorrhagic CVA -Continue PT, OT, and ST -Poor prognosis. Patient does not participate in therapy. -Palliative care following. Difficulty replacement. UTI -Patient completed treatment with ceftriaxone. Last urine cultures grew Enterobacter. Remains afebrile. Dysphagia -Continue to CVA. -Status post PEG placement on 05/09/17 -Continue tube feeding as below. Hypertension emergency -Resolved. Patient currently on Nifedipine 40 mg every 6 hours, Lisinopril 10 mg twice daily, Apresoline 50 mg every 6 hours, Catapres TTS 3 patch, Metoprolol 100 mg twice daily, HCTZ 25 mg daily, and Apresoline, clonidine, Vasotec as needed -12/27decreased clonidine patch 12/26. Blood pressure improved today. Continue to monitor. Plan to discontinue clonidine in the coming days. Hyperglycemia -Glucerna for tube feeds -Follow blood sugars intermittently Xeroderma on bilateral feet -Lac-Hydrin 12% Lotion continued. Coccyx pressure wound, wound care following. Nutrition: - Tube feeds changed to Glucerna 1.5 , bolus feeding with Tyshawn. DVT Prophylaxis: SCDs given history of recent intracranial hemorrhage Discharge Planning Very poor prognosis. Patient does not display any meaningful involvement with therapy. Difficult DC. Awaiting placement, CM ff. In the meantime patient will receive therapy here. Kirsten Garza MD Jan 01, 2018 15:00
[2018-01-01 17:17] VITALS: BP 104/60; PULSE 77; RESP 12; TEMP 99.2
[2018-01-01 20:00] VITALS: BP 128/90; PULSE 101; O2SAT 97
[2018-01-01] MEDS ORDERED: LEVOFLOXACIN 500 MG PREMIX INJ 100 ML IV SCH (20:00)
--- NOTE | 2018-01-01 21:09 | RADRPT ---
EXAM DATE/TIME: 01/01/2018 20:33 [facility] COMPARISON: No previous studies available for comparison. INDICATIONS : Fever MEDICAL HISTORY : Left intracranial hemorrhage. Right hemiparesis SURGICAL HISTORY : None. ENCOUNTER: Subsequent ACUITY: 2 weeks PAIN SCORE: Non-responsive. LOCATION: chest FINDINGS: A single view of the chest demonstrates the lungs to be symmetrically aerated without evidence of mas s, infiltrate or effusion. The cardiomediastinal contours are unremarkable. Osseous structures are intact. CONCLUSION: 1. No acute findings. Adi Quarles MD on January 01, 2018 at 21:07 Board Certified Radiologist. This report was verified electronically.
[2018-01-01 22:47] LABS: BACTERIA, URINE MANY /hpf; BILIRUBIN, URINE NEG (NEG); BLOOD, URINE MOD (NEG); CALCIUM OXALATE CRYSTALS,URINE OCC /hpf; GLUCOSE,URINE NEG (NEG); KETONE, URINE TRACE mg/dL (NEG); MUCUS URINE MOD /lpf (OCC); NITRITE,URINE NEG (NEG); URINE COLOR YELLOW (YELLW/STRAW); URINE LEUKOCYTE ESTERASE LARGE (NEG); WHITE BLOOD CELL CLUMPS MANY
[2018-01-02] VITALS: BP 115/79; PULSE 86; RESP 16; O2SAT 97
[2018-01-02 05:22] VITALS: BP 155/105
[2018-01-02] MEDS: FREE WATER G-TUBE SCH ×5 (05:23→23:52)
[2018-01-02] MEDS: NIFEdipine 20 MG CAP SCH ×5 (05:23→23:54)
[2018-01-02] MEDS: hydrALAZINE HCL 100 MG TAB PEG SCH ×3 (05:23→22:11)
[2018-01-02 08:00] VITALS: BP 128/88; PULSE 81; RESP 14; TEMP 99.2; O2SAT 98
[2018-01-02] MEDS: SODIUM HYPOCHLORITE 0.25% 500 ML BTL TOPICAL SCH (08:28)
[2018-01-02] MEDS: LACTIC ACID (AMMONIUM LACTATE) 12% LOTION 225 GM BTL TOPICAL SCH ×2 (08:28→20:43)
[2018-01-02] MEDS: COLLAGENASE OINT 30 GM TUBE TOPICAL SCH (08:28)
[2018-01-02] MEDS: LANSOPRAZOLE SOLUTAB 30 MG TAB G-TUBE SCH (08:29)
[2018-01-02] MEDS: HYDROCHLOROTHIAZIDE 25 MG TAB PO SCH (08:29)
[2018-01-02] MEDS: METOPROLOL TARTRATE 25 MG TAB PEG SCH ×2 (08:29→20:43)
[2018-01-02 12:00] VITALS: BP 136/84; PULSE 78; RESP 14; TEMP 98.9
--- NOTE | 2018-01-02 13:26 | HHI.IDPN ---
Subjective Subjective Remarks ID RECONSULT Gen. originally seen by infectious disease the first week of October for evaluation of fever . [place] found in the park with altered mental status and R weakness, found to be suffering from large left parenchymal hemorrhage was intraventricular extension on initial CT scan, now with prolonged hospital course without much improvement in mentation . Patient has had a h/o UTI and now has a sacral decubitus ulcer. Last 3 days patient has been having fevers. Started on Zosyn and now IV Vancomycin- with continued fevers so ID has been consulted. Still running fever. She had debridement of her sacral decubitus. Culture grew Pseudomonas. Patient completed a four-week course of IV antibiotic. She was initially on Zosyn, but developed a rash, and completed the course of treatment with IV cefepime. Patient since has been stable from ID standpoint up until about 3-4 days ago when she started having fevers. There was a urine culture from December to that had Enterobacter. I'm not sure if she received any treatment for that. Repeat urine culture from December 25 has Escherichia coli and Enterobacter. Snow cultures done 2 blood culture and urine culture that are still pending. Patient has a Helms catheter in place, last change December 09. ID reconsultation has been requested to evaluate the fever. She is currently on IV Levaquin Antibiotics Current Medications Levaquin Medications (Trade) Dose Ordered Sig/Reymundo Route Start Time Stop Time Status Last Admin (Dulcolax Supp) 10 mg DAILY PRN RECTAL 04/10/17 22:00 (Lac-Hydrin 12% Lotion) 1 applic BID TOPICAL 05/04/17 14:00 01/02/18 08:28 (Prevacid Odt) 30 mg DAILY G-TUBE 05/10/17 09:00 01/02/18 08:29 (Apresoline) 25 mg Q4HR PRN PEG 05/18/17 14:45 11/04/17 14:28 (Zofran Liq) 4 mg Q6H PRN PEG 05/26/17 10:00 (Tylenol) 650 mg Q6H PRN PEG 06/16/17 16:00 Future Hold 10/17/17 19:29 (Senna Liq) 8.8 mg DAILY PEG 06/29/17 09:00 Future Hold 10/17/17 10:02 (Hydrodiuril) 25 mg DAILY PO 09/27/17 09:15 Future hold 01/02/18 08:29 (Pill Splitter) 1 ea UNSCH PRN OTHER 10/17/17 17:45 12/08/17 20:45 (Free Water) 150 ml Q6HR G-TUBE 10/19/17 12:00 01/02/18 11:52 (NS Flush) 2 ml UNSCH PRN IV FLUSH 11/17/17 10:15 12/31/17 08:57 (Lopressor) 25 mg BID PEG 11/24/17 21:00 01/02/18 08:29 (Apresoline) 50 mg Q8HR PEG 12/12/17 22:00 01/02/18 11:52 (Miralax) 17 gm DAILY PRN PO 12/16/17 18:00 (Percocet 5-325 Mg) 1 tab Q6H PRN PO 12/22/17 15:00 12/31/17 14:34 (Percocet 10-325 Mg) 1 tab Q6H PRN PO 12/22/17 15:00 12/31/17 04:45 (Santyl Oint) 1 applic DAILY TOPICAL 12/25/17 17:00 01/02/18 08:28 (Dakin'S 0.25% Soln) 500 ml DAILY TOPICAL 12/25/17 17:30 01/02/18 08:28 (Procardia) 40 mg Q6HR .XX 12/27/17 12:00 01/02/18 11:52 Levofloxacin/ Dextrose 100 ml @ 100 mls/hr Q24H IV 01/01/18 20:00 01/01/18 20:07 Lines Peripheral IV line Past Medical History Intracranial Hemorrhage Allergies: Coded Allergies: No Known Allergies (Unverified , 09/05/16) Objective . Vital Signs Date Time Temp Pulse Resp B/P (MAP) Pulse Ox O2 Delivery O2 Flow Rate FiO2 01/02/18 12:00 98.9 78 14 136/84 (101) 01/02/18 08:00 99.2 81 14 128/88 (101) 98 01/02/18 05:22 155/105 (122) 01/02/18 00:00 86 16 115/79 (91) 97 01/01/18 20:00 101 128/90 (103) 97 01/01/18 17:17 99.2 77 12 104/60 (75) . Microbiology Date/Time Source Procedure Growth Status 01/01/18 20:28 Blood Peripheral Aerobic Blood Culture - Preliminary NO GROWTH IN 1 DAY Resulted 01/01/18 20:28 Blood Peripheral Anaerobic Blood Culture - Preliminary NO GROWTH IN 1 DAY Resulted 01/01/18 20:23 Blood Peripheral Aerobic Blood Culture - Preliminary NO GROWTH IN 1 DAY Resulted 01/01/18 20:23 Blood Peripheral Anaerobic Blood Culture - Preliminary NO GROWTH IN 1 DAY Resulted 01/01/18 20:36 Urine Clean Catch Urine Culture Pending Received Imaging RADIOLOGY STUDIES/FILMS REVIEWED Chest X-Ray 01/01/18 0000 Signed Impressions: Service Date/Time: Monday, January 01, 2018 20:33 - CONCLUSION: 1. No acute findings. Adi Quarles MD Physical Exam GENERAL: This is a Chronically ill appearing patient, awake, follows some commands. Not in any distress. SKIN: Warm and dry, no generalized rash, no echhymoses HEAD: Atraumatic. Normocephalic. No temporal or scalp tenderness. EYES: Extraocular motions intact. No scleral icterus. No injection or drainage. EARS, NOSE AND THROAT: Mosit mucosa, come white coating on her tongue, did not completely open mouth for full exam. No nasl discharde NECK: Trachea midline. No JVD or lymphadenopathy. Supple, nontender, no meningeal signs. CARDIOVASCULAR: Regular rate and rhythm . Soft systolic murmur at LSB. RESPIRATORY: Clear to auscultation. Breath sounds equal bilaterally. No wheezes , rales, or rhonchi. GASTROINTESTINAL: Abdomen soft, non-tender, nondistended. No hepato-splenomegaly , or palpable masses. No guarding. Peg tube site ok MUSCULOSKELETAL: Extremities with wasting. NO edema. Both feet plantar flexed NEUROLOGICAL: Awake and alert. Patient with hemiplegia LINE: PIV no evidence of infection : Helms in place, urine looks clear Assessment & Plan Remarks IMPRESSION New fever likely due to helms associated UTI S/P Rx infected sacral decubitus, PSAE S/P Rx previous UTI ICH RECOMMENDATION Continue Levaquin - change to po Change helms now since she has had (+) UC Follow C/S Monitor progress I will follow along with you Kaylyn Gilliland MD Jan 02, 2018 13:26
[2018-01-02 17:13] VITALS: BP 100/56; PULSE 70; RESP 14; TEMP 97.6; O2SAT 98
[2018-01-02] MEDS: ESCITALOPRAM OXALATE 10 MG TAB PEG SCH (17:15)
--- NOTE | 2018-01-02 17:15 | HHI.PR ---
Subjective Remarks PATIENT IS AWAKE AND ALERT MUMBLES NO NEW COMPLAINTS DW RN START LEXAPRO 10MG VIA PEG DAILY Objective Vitals Vital Signs Date Time Temp Pulse Resp B/P (MAP) Pulse Ox O2 Delivery O2 Flow Rate FiO2 01/02/18 12:00 98.9 78 14 136/84 (101) 01/02/18 08:00 99.2 81 14 128/88 (101) 98 01/02/18 05:22 155/105 (122) 01/02/18 00:00 86 16 115/79 (91) 97 01/01/18 20:00 101 128/90 (103) 97 01/01/18 17:17 99.2 77 12 104/60 (75) I/O 01/01/18 01/01/18 01/01/18 01/02/18 01/02/18 01/02/18 07:00 15:00 23:00 07:00 15:00 23:00 Intake Total 775 ml 1260 ml 600 ml Output Total 1100 ml 900 ml 750 ml Balance -325 ml 360 ml -150 ml Tube Feeding 240 ml 960 ml 240 ml Tube Irrigant 235 ml 60 ml Other 300 ml 300 ml 300 ml Output Urine Total 1100 ml 900 ml 750 ml # Bowel Movements 1 1 1 Other Results Laboratory Tests Test 01/01/18 20:36 Urine Color YELLOW Urine Turbidity CLOUDY Urine pH 6.0 Urine Specific [place] 1.020 Urine Protein 30 mg/dL Urine Glucose (UA) NEG mg/dL Urine Ketones TRACE mg/dL Urine Occult Blood MOD Urine Nitrite NEG Urine Bilirubin NEG Urine Urobilinogen LESS THAN 2.0 MG/DL Urine Leukocyte Esterase LARGE Urine RBC 19 /hpf Urine WBC /hpf Urine WBC Clumps MANY Urine Calcium Oxalate Crystals OCC /hpf Urine Bacteria MANY /hpf Urine Mucus MOD /lpf Microscopic Urinalysis Comment CULTURE INDICATED Imaging Last Impressions Chest X-Ray 01/01/18 0000 Signed Impressions: Service Date/Time: Monday, January 01, 2018 20:33 - CONCLUSION: 1. No acute findings. Adi Quarles MD Abdomen X-Ray 12/13/17 0000 Signed Impressions: Service Date/Time: Wednesday, December 13, 2017 14:17 - CONCLUSION: PEG tube in stomach.. Harry Dumas MD FACR Upper Extremity Ultrasound 11/06/17 0000 Signed Impressions: Service Date/Time: Monday, November 06, 2017 14:17 - CONCLUSION: Normal examination. Kelby Perez MD Pelvis CT 10/13/17 0000 Signed Impressions: Service Date/Time: Friday, October 13, 2017 12:02 - CONCLUSION: 1. Decubitus ulcer with small abscess in the right posterior perineal region measuring 3.1 x 4.6 cm. There is also a small abscess posterior and to the left of the rectum measuring 3.2 x 2.3 cm. Jann Weber MD Head CT 04/25/17 0000 Signed Impressions: Service Date/Time: Tuesday, April 25, 2017 18:02 - CONCLUSION: 1. Evolving left thalamic hematoma. No new hemorrhage. Adi Quarles MD Neck CTA 04/10/17 0000 Signed Impressions: Service Date/Time: Monday, April 10, 2017 22:28 - CONCLUSION: The internal carotid arteries are normal bilaterally. No significant atherosclerotic disease is noted. Eliud Du MD Head CTA 04/10/17 0000 Signed Impressions: Service Date/Time: Monday, April 10, 2017 22:50 - CONCLUSION: Mild dilatation of the basilar tip without discrete aneurysm. Some narrowing of the left middle cerebral branch after the bifurcation. Prominent left thalamic hemorrhage. Eliud Du MD Objective Remarks GENERAL: Patient lying in CHAIR, appears comfortable -HER VOICE IS very soft- spoken can be heard with my stethoscope only SKIN: Warm and dry. HEAD: Atraumatic. Normocephalic. EYES: Pupils equal and round. No scleral icterus. No injection or drainage. ENT: No nasal bleeding or discharge. Mucous membranes pink and moist. NECK: Trachea midline. No JVD. Supple CARDIOVASCULAR: Regular rate and rhythm. S1 and S2 no S3 or S4 RESPIRATORY: No accessory muscle use. Clear to auscultation. Breath sounds equal bilaterally. GASTROINTESTINAL: Abdomen soft, non-tender, nondistended. Hepatic and splenic margins not palpable. PEG tube in place--Cruz catheter in place MUSCULOSKELETAL: Extremities without clubbing, cyanosis, or edema. No obvious deformities. Has bilateral foot drop and right upper extremity flaccid can move left upper extremity with good manager dish strength NEUROLOGICAL: Awake and alert. No obvious cranial nerve deficits. Normal speech but very very soft. PSYCHIATRIC: Appropriate mood and affect; insight and judgment ABnormal. Procedures Peg Tube placed 05/08/17 (Dr. De Los Santos) Medications and IVs Current Medications Sodium Chloride (NS Flush) 2 ml UNSCH PRN IVF FLUSH AFTER USING IV ACCESS; Start 04/10/17 at 20:00; Stop 04/10/17 at 22:12; Status DC Nicardipine HCl 25 mg/Sodium Chloride 260 ml @ 0 mls/hr TITRATE IV Last administered on 04/10/17 21:34; Start 04/10/17 at 20:00; Stop 04/10/17 at 22:12; Status DC Sodium Chloride 1,000 ml @ 84 mls/hr [id number] IV Last administered on 04/11/17 07:47; Start 04/10/17 at 22:00; Stop 04/11/17 at 15:41; Status DC Sodium Chloride (NS Flush) 2 ml UNSCH PRN .XX FLUSH AFTER USING IV ACCESS Last administered on 05/01/17 04:49; Start 04/10/17 at 22:00; Stop 05/26/17 at 10:07 ; Status DC Sodium Chloride (NS Flush) 2 ml BID .XX Last administered on 05/26/17 09:54; Start 04/11/17 at 09:00; Stop 05/26/17 at 10:07; Status DC Acetaminophen (Tylenol) 650 mg Q6H PRN PO PAIN 1-10 AND/OR FEVER >101F Last administered on 04/26/17 13:46; Start 04/10/17 at 22:00; Stop 06/16/17 at 10:03 ; Status DC Morphine Sulfate (Morphine Inj) 2 mg Q2H PRN IV PAIN SCALE 6 TO 10 Last administered on 05/25/17 21:09; Start 04/10/17 at 22:00; Stop 05/26/17 at 10:07 ; Status DC Famotidine (Pepcid Inj) 20 mg Q12HR IV PUSH Last administered on 05/04/17 08: 37; Start 04/11/17 at 09:00; Stop 05/04/17 at 14:13; Status DC Ondansetron HCl (Zofran Inj) 4 mg Q6H PRN IV NAUSEA OR VOMITING; Start 04/10/17 at 22:00; Stop 05/26/17 at 10:07; Status DC Metoclopramide HCl (Reglan Inj) 10 mg Q6H PRN IV NAUSEA OR VOMITING; Start 04/10 at 22:00; Stop 05/26/17 at 10:07; Status DC Prochlorperazine (Compazine Supp) 25 mg Q12H PRN RECTAL NAUSEA OR VOMITING; Start 04/10/17 at 22:00; Stop 05/26/17 at 10:07; Status DC Albuterol/ Ipratropium (Duoneb Neb) 1 ampule Q2HR NEB PRN INH WHEEZING; Start 04/10/17 at 22:00; Stop 05/26/17 at 10:07; Status DC Miscellaneous Information 1 Q361D XX Last administered on 04/10/17 22:00; Start 04/10/17 at 22:00; Stop 05/26/17 at 10:07; Status DC Chlorhexidine Gluconate (Chlorhexidine 2% Cloth) Taper DAILY@04 TOP Last administered on 05/21/17 04:00; Start 04/11/17 at 04:00; Stop 05/26/17 at 10:07 ; Status DC Chlorhexidine Gluconate (Chlorhexidine 2% Cloth) 3 pack UNSCH PRN TOP HYGIENIC CARE; Start 04/10/17 at 22:00; Stop 05/26/17 at 10:07; Status DC Senna/Docusate Sodium (Evelyn-Colace) 1 tab BID PO Last administered on 09:20; Start 04/11/17 at 09:00; Stop 06/16/17 at 10:03; Status DC Magnesium Hydroxide (Milk Of Magnesia Liq) 30 ml Q12H PRN PO MILD - MODERATE CONSTIPATION; Start 04/10/17 at 22:00; Stop 05/26/17 at 10:07; Status DC Sennosides (Senokot) 17.2 mg Q12H PRN PO MODERATE - SEVERE CONSTIPATION Last administered on 05/08/17 21:29; Start 04/10/17 at 22:00; Stop 05/26/17 at 10:07; Status DC Bisacodyl (Dulcolax Supp) 10 mg DAILY PRN RECTAL SEVERE CONSITIPATION; Start at 22:00 Lactulose (Lactulose Liq) 30 ml DAILY PRN PO SEVERE CONSITIPATION Last administered on 04/24/17 08:44; Start 04/10/17 at 22:00; Stop 06/16/17 at 10:03 ; Status DC Nicardipine HCl 25 mg/Sodium Chloride 260 ml @ 0 mls/hr TITRATE IV Last administered on 04/14/17 04:35; Start 04/10/17 at 22:15; Stop 04/14/17 at 12:18; Status DC Iohexol (Omnipaque 350 Inj) 70 ml STK-MED ONCE IV Last administered on 22:35; Start 04/10/17 at 22:35; Stop 04/10/17 at 22:36; Status DC Labetalol HCl (Trandate Inj) 20 mg Q4H PRN IV PUSH sbp>160 Last administered on 04/17/17 02:24; Start 04/12/17 at 08:15; Stop 04/25/17 at 18:06; Status DC Hydralazine HCl (Apresoline Inj) 20 mg Q4H PRN IV PUSH sbp>150 Last administered on 05/17/17 20:39; Start 04/12/17 at 08:15; Stop 05/18/17 at 14:44 ; Status DC Amlodipine Besylate (Norvasc) 5 mg DAILY PO Last administered on 04/14/17 08:55 ; Start 04/12/17 at 09:00; Stop 04/15/17 at 06:44; Status DC Metoclopramide HCl (Reglan Inj) 5 mg Q8HR IV PUSH Last administered on 14:02; Start 04/12/17 at 16:00; Stop 05/04/17 at 14:13; Status DC Potassium Chloride 100 ml @ 50 mls/hr Q2H PRN IV For Potassium 2.8 - 3.2 mEq/L ; Start 04/13/17 at 11:45; Stop 04/25/17 at 11:32; Status DC Potassium Chloride 100 ml @ 50 mls/hr Q2H PRN IV For Potassium 2.8 - 3.2 mEq/ L Last administered on 04/14/17 13:06; Start 04/13/17 at 11:45; Stop 04/25/17 at 11:32; Status DC Potassium Bicarb/ Potassium Chloride (K-Lyte Cl Eff) 50 meq UNSCH PRN PO For Potassium 3.3 - 3.5 mEq/L Last administered on 04/19/17t 14:03; Start 04/13/17 at 11:45; Stop 04/25/17 at 11:32; Status DC Potassium Chloride 100 ml @ 25 mls/hr UNSCH PRN IV For Potassium 3.3 - 3.5 mEq /L; Start 04/13/17 at 11:45; Stop 04/25/17 at 11:32; Status DC Potassium Chloride 100 ml @ 50 mls/hr Q2H PRN IV For Potassium 3.3 - 3.5 mEq/L ; Start 04/13/17 at 11:45; Stop 04/25/17 at 11:32; Status DC Magnesium Sulfate 4 gm/Sodium Chloride 100 ml @ 50 mls/hr UNSCH PRN IV For Magnesium 0.9 - 1.1 mg/dL; Start 04/13/17 at 11:45; Stop 04/25/17 at 11:32; Status DC Magnesium Oxide (Mag-Ox) 800 mg UNSCH PRN PO For Magnesium 1.2 - 1.6 mg/dL; Start 04/13/17 at 11:45; Stop 04/25/17 at 11:32; Status DC Magnesium Sulfate 2 gm/Sodium Chloride 100 ml @ 50 mls/hr UNSCH PRN IV For Magnesium 1.2 - 1.6 mg/dL; Start 04/13/17 at 11:45; Stop 04/25/17 at 11:32; Status DC Potassium Phosphate (K-Phos) 2,000 mg Q4H PRN PO For Phosphorus < 2.5 mg/dL; Start 04/13/17 at 11:45; Stop 04/25/17 at 11:32; Status DC Sodium Phosphate 30 mmol/Sodium Chloride 250 ml @ 42 mls/hr UNSCH PRN IV For Phosphorus < 2.5 mg/dL; Start 04/13/17 at 11:45; Stop 04/25/17 at 11:32; Status DC Potassium Phosphate (K-Phos) 2,000 mg UNSCH PRN PO/TUBE SEE LABEL COMMENTS; Start 04/13/17 at 11:45; Stop 04/25/17 at 11:32; Status DC Potassium Phosphate 30 mmol/ Sodium Chloride 260 ml @ 42 mls/hr UNSCH PRN IV SEE LABEL COMMENTS; Start 04/13/17 at 11:45; Stop 04/25/17 at 11:32; Status DC Metoprolol Tartrate (Lopressor) 25 mg Q8HR PO Last administered on 04/14/17 05: 40; Start 04/13/17 at 14:00; Stop 04/14/17 at 12:18; Status DC Hydralazine HCl (Apresoline) 50 mg Q8H PO Last administered on 04/14/17 03:23; Start 04/13/17 at 12:00; Stop 04/14/17 at 09:23; Status DC Hydralazine HCl (Apresoline) 100 mg Q8H PO Last administered on 04/14/17 11:25 ; Start 04/14/17 at 12:00; Stop 04/14/17 at 19:47; Status DC Metoprolol Tartrate (Lopressor) 50 mg Q8HR PO Last administered on 04/24/17 05 :27; Start 04/14/17 at 14:00; Stop 04/24/17 at 09:28; Status DC Hydralazine HCl (Apresoline Inj) 20 mg ONCE ONCE IV PUSH Last administered on 04/14/17 17:42; Start 04/14/17 at 17:15; Stop 04/14/17 at 17:32; Status DC Labetalol HCl (Trandate Inj) 10 mg ONCE ONCE IV PUSH Last administered on 17:42; Start 04/14/17 at 17:15; Stop 04/14/17 at 17:32; Status DC Clonidine (Catapres) 0.3 mg ONCE ONCE PO Last administered on 04/14/17 17:50; Start 04/14/17 at 17:15; Stop 04/14/17 at 17:32; Status DC Clonidine (Catapres) 0.2 mg Q8HR PO ; Start 04/14/17 at 22:00; Stop 04/14/17 at 22 :00; Status DC Clonidine (Catapres) 0.3 mg Q8HR PO Last administered on 04/26/17 05:55; Start 04/14/17 at 22:00; Stop 04/26/17 at 14:39; Status DC Hydralazine HCl (Apresoline) 100 mg Q6HR PO Last administered on 04/15/17 10: 39; Start 04/15/17 at 00:00; Stop 04/15/17 at 13:10; Status DC Amlodipine Besylate (Norvasc) 10 mg DAILY PO Last administered on 06/12/17 07: 39; Start 04/14/17 at 19:45; Stop 06/12/17 at 07:56; Status DC Enalaprilat (Vasotec Inj) 1.25 mg Q6H PRN IV PUSH SBP>160, DBP>90 Last administered on 05/13/17 01:22; Start 04/15/17 at 01:15; Stop 05/26/17 at 10:07 ; Status DC Nitroglycerin (Nitroglycerin 2% Oint) 2 inch Q6HR PRN TOPICAL SBP>160, DBP>90 Last administered on 04/16/17 12:34; Start 04/15/17 at 06:00; Stop 05/26/17 at 10:07; Status DC Hydralazine HCl (Apresoline) 100 mg Q8HR PO Last administered on 04/26/17 05: 55; Start 04/15/17 at 14:00; Stop 04/26/17 at 14:39; Status DC Lisinopril (Prinivil) 20 mg DAILY PO Last administered on 04/16/17 08:32; Start 04/15/17 at 13:30; Stop 04/16/17 at 14:58; Status DC Lisinopril (Prinivil) 20 mg ONCE ONCE PO Last administered on 04/16/17 15:27 ; Start 04/16/17 at 15:00; Stop 04/16/17 at 15:03; Status DC Lisinopril (Prinivil) 40 mg BID PO Last administered on 04/20/17 09:09; Start 04/16/17 at 21:00; Stop 04/20/17 at 16:42; Status DC Hydrochlorothiazide (Hydrodiuril) 25 mg DAILY PO Last administered on 08:59; Start 04/17/17 at 17:45; Stop 04/18/17 at 16:28; Status DC Hydrochlorothiazide (Hydrodiuril) 25 mg ONCE ONCE PO Last administered on 04/18 16:51; Start 04/18/17 at 16:30; Stop 04/18/17 at 16:32; Status DC Hydrochlorothiazide (Hydrodiuril) 50 mg DAILY PO Last administered on 08:50; Start 04/19/17 at 09:00; Stop 04/25/17 at 18:06; Status DC Lisinopril (Prinivil) 30 mg BID PO Last administered on 04/25/17 08:50; Start 04/20/17 at 21:00; Stop 04/25/17 at 18:06; Status DC Miscellaneous (Pill Splitter) 1 ea UNSCH PRN OTHER SEE LABEL COMMENTS; Start at 17:15; Stop 10/18/17 at 09:37; Status DC Ceftriaxone Sodium 1000 mg/ Sodium Chloride 100 ml @ 200 mls/hr HS IV Last administered on 04/29/17 22:04; Start 04/22/17 at 21:30; Stop 04/30/17 at 12:37 ; Status DC Metoprolol Tartrate (Lopressor) 50 mg BID PO Last administered on 05/26/17 09: 54; Start 04/24/17 at 21:00; Stop 05/26/17 at 10:12; Status DC Lisinopril (Prinivil) 20 mg DAILY PO Last administered on 04/27/17 09:52; Start 04/26/17 at 09:00; Stop 04/28/17 at 00:21; Status DC Clonidine (Catapres) 0.2 mg Q8HR PO Last administered on 05/26/17 05:57; Start 04/26/17 at 22:00; Stop 05/26/17 at 10:12; Status DC Hydralazine HCl (Apresoline) 50 mg Q8HR PO Last administered on 04/27/17 12:45 ; Start 04/26/17 at 22:00; Stop 04/27/17 at 15:31; Status DC Hydralazine HCl (Apresoline) 100 mg Q8HR PO Last administered on 06/10/17 06:18 ; Start 04/27/17 at 22:00; Stop 06/10/17 at 12:03; Status DC Lisinopril (Prinivil) 40 mg DAILY PO Last administered on 06/16/17 09:20; Start 04/28/17 at 09:00; Stop 06/16/17 at 10:03; Status DC Famotidine (Pepcid) 20 mg BID NG Last administered on 05/09/17 09:36; Start at 21:00; Stop 05/09/17 at 12:49; Status DC Lactic Acid (Lac-Hydrin 12% Lotion) 1 applic BID TOPICAL Last administered on at 08:28; Start 05/04/17 at 14:00 Cefazolin Sodium 1000 mg/Sodium Chloride 100 ml @ 200 mls/hr ARMATURE WINDER IV ; Start 05/06/17 at 10:30; Stop 05/09/17 at 10:29; Status DC Cefazolin Sodium (Ancef Inj) 1,000 mg STK-MED ONCE IV Last administered on 15:00; Start 05/08/17 at 15:00; Stop 05/08/17 at 15:08; Status DC Propofol (Diprivan 200 Mg/20 ml Inj) 150 mg STK-MED ONCE IV PUSH ; Start at 15:27; Stop 05/08/17 at 15:45; Status DC Lansoprazole (Prevacid Odt) 30 mg DAILY G-TUBE Last administered on 01/02/18at 08:29; Start 05/10/17 at 09:00 Nystatin (Mycostatin Liq) 5 ml QID SWISH-SWAL Last administered on 05/22/17 09:36; Start 05/14/17 at 13:00; Stop 05/22/17 at 11:19; Status DC Hydralazine HCl (Apresoline) 25 mg Q4HR PRN PEG for sbp greater than 150 Last administered on 11/04/17 14:28; Start 05/18/17 at 14:45 Clonidine (Catapres) 0.1 mg Q6H PRN PO for SBP greater than 170 Last administered on 05/22/17 02:48; Start 05/21/17 at 07:30; Stop 05/26/17 at 10:12 ; Status DC Nystatin (Mycostatin Liq) 5 ml QID SWISH-SWAL Last administered on 05/28/17 09:43; Start 05/23/17 at 13:00; Stop 05/28/17 at 10:02; Status DC Ondansetron HCl (Zofran Liq) 4 mg Q6H PRN PEG NAUSEA OR VOMITING; Start at 10:00 Metoprolol Tartrate (Lopressor) 75 mg BID PO Last administered on 05/28/17 09: 43; Start 05/26/17 at 21:00; Stop 05/28/17 at 09:58; Status DC Clonidine (Catapres-Tts 0.2 Mg Patch.7d) 1 patch Q7D T-DERMAL Last administered on 06/02/17 11:27; Start 05/26/17 at 12:00; Stop 06/06/17 at 12:47 ; Status DC Miscellaneous Information 1 Q7D T-DERMAL Last administered on 06/02/17 11:28; Start 06/02/17 at 12:00; Stop 06/06/17 at 13:31; Status DC Metoprolol Tartrate (Lopressor) 100 mg BID PO Last administered on 06/16/17 09 :20; Start 05/28/17 at 21:00; Stop 06/16/17 at 10:03; Status DC Fluconazole (Diflucan) 200 mg DAILY PO Last administered on 06/03/17 08:44; Start 05/28/17 at 11:00; Stop 06/04/17 at 08:59; Status DC Levofloxacin (Levaquin Liq) 750 mg Q24H PEG ; Start 05/29/17 at 11:00; Stop at 15:05; Status DC Levofloxacin (Levaquin Liq) 750 mg DAILY@16 PEG Last administered on 16:20; Start 05/29/17 at 16:00; Stop 06/04/17 at 16:01; Status DC Sodium Chloride 500 ml @ 500 mls/hr BOLUS ONCE IV Last administered on 15:43; Start 06/01/17 at 11:30; Stop 06/01/17 at 12:29; Status DC Sodium Chloride 1,000 ml @ 100 mls/hr Q10H IV Last administered on 06/03/17 06:17; Start 06/02/17 at 11:15; Stop 06/03/17 at 10:16; Status DC Clonidine (Catapres-Tts 0.3 Mg Patch.7d) 1 patch Q7D T-DERMAL Last administered on 12/19/17 17:32; Start 06/06/17 at 15:00; Stop 12/24/17 at 09:54 ; Status DC Miscellaneous Information 1 Q7D T-DERMAL Last administered on 12/19/17 15:00; Start 06/06/17 at 15:00; Stop 12/24/17 at 09:54; Status DC Hydralazine HCl (Apresoline) 100 mg Q6HR PO Last administered on 06/16/17 06: 20; Start 06/10/17 at 18:00; Stop 06/16/17 at 10:03; Status DC Nifedipine (Procardia Xl) 60 mg DAILY PO Last administered on 06/15/17 10:04; Start 06/12/17 at 09:00; Stop 06/16/17 at 10:03; Status DC Acetaminophen (Tylenol) 650 mg Q6H PRN PEG PAIN 1-10 AND/OR FEVER >101F Last administered on 10/17/17 19:29; Start 06/16/17 at 16:00; Status Future Hold Senna/Docusate Sodium (Evelyn-Colace) 1 tab BID PEG Last administered on 09:42; Start 06/16/17 at 21:00; Stop 06/28/17 at 10:38; Status DC Hydralazine HCl (Apresoline) 100 mg Q6HR PEG Last administered on 08/17/17 22 :43; Start 06/16/17 at 12:00; Stop 08/18/17 at 07:50; Status DC Lactulose (Lactulose Liq) 30 ml DAILY PRN PEG SEVERE CONSITIPATION; Start 06/16 at 10:00; Stop 08/17/17 at 08:28; Status DC Lisinopril (Prinivil) 40 mg DAILY PEG Last administered on 08/16/17 08:04; Start 06/17/17 at 09:00; Stop 08/18/17 at 07:50; Status DC Metoprolol Tartrate (Lopressor) 100 mg BID PEG Last administered on 11/21/17at 21:41; Start 06/16/17 at 21:00; Stop 11/23/17 at 11:24; Status DC Nifedipine (Procardia) 20 mg Q8HR PEG Last administered on 06/20/17 05:41; Start 06/16/17 at 14:00; Stop 06/20/17 at 14:35; Status DC Nifedipine (Procardia) 30 mg Q8HR .XX Last administered on 06/22/17 13:13; Start 06/20/17 at 22:00; Stop 06/22/17 at 13:14; Status DC Nifedipine (Procardia) 30 mg Q6HR .XX Last administered on 06/26/17 06:32; Start 06/22/17 at 18:00; Stop 06/26/17 at 11:22; Status DC Nifedipine (Procardia) 40 mg Q6HR PEG Last administered on 12/17/17at 11:55; Start 06/26/17 at 12:00; Stop 12/17/17 at 18:00; Status DC Sennosides (Senna Liq) 8.8 mg DAILY PEG Last administered on 10/17/17 10:02 ; Start 06/29/17 at 09:00; Status Future Hold Hydrochlorothiazide (Hydrodiuril) 25 mg DAILY PO Last administered on 07/07/17 08:49; Start 07/01/17 at 12:00; Stop 07/07/17 at 11:21; Status DC Hydrochlorothiazide (Hydrodiuril) 25 mg BID@,18 PEG Last administered on 07/21 17:17; Start 07/07/17 at 18:00; Stop 07/28/17 at 15:04; Status DC Potassium Bicarb/ Potassium Chloride (K-Lyte Cl Eff) 25 meq DAILY PEG Last administered on 07/22/17 09:54; Start 07/07/17 at 11:30; Stop 07/28/17 at 15:04 ; Status DC Hydrochlorothiazide (Hydrodiuril) 25 mg DAILY PO Last administered on 08:04; Start 08/04/17 at 12:30; Stop 08/18/17 at 07:50; Status DC Nystatin (Mycostatin Liq) 5 ml QID OTHER Last administered on 08/21/17 17:54 ; Start 08/13/17 at 18:00; Stop 08/21/17 at 18:00; Status DC Polyethylene Glycol (Miralax) 17 gm DAILY PRN PO severe constipation Last administered on 08/30/17 23:22; Start 08/17/17 at 08:30; Stop 12/09/17 at 09: 10; Status DC Hydralazine HCl (Apresoline) 100 mg Q8HR PEG Last administered on 08/19/17 06 :38; Start 08/18/17 at 14:00; Stop 08/19/17 at 07:53; Status DC Lisinopril (Prinivil) 20 mg BID PEG ; Start 08/18/17 at 09:00; Stop 08/19/17 at 07:53; Status DC Hydralazine HCl (Apresoline) 50 mg Q6HR PEG Last administered on 12/10/17 23:28 ; Start 08/19/17 at 12:00; Stop 12/11/17 at 04:19; Status DC Lisinopril (Prinivil) 10 mg BID PEG Last administered on 11/15/17 08:28; Start 08/19/17 at 09:00; Stop 11/15/17 at 10:41; Status DC Hydrochlorothiazide (Hydrodiuril) 25 mg DAILY PO Last administered on 17:12; Start 08/20/17 at 15:00; Stop 08/21/17 at 08:35; Status DC Nystatin (Mycostatin Liq) 5 ml QID OTHER Last administered on 09/02/17 21:12 ; Start 08/23/17 at 18:00; Stop 09/03/17 at 09:51; Status DC Hydrochlorothiazide (Hydrodiuril) 25 mg DAILY PO Last administered on 10:34; Start 08/29/17 at 11:15; Stop 09/03/17 at 09:51; Status DC Hydrochlorothiazide (Microzide) 12.5 mg DAILY PO Last administered on 09:03; Start 09/04/17 at 09:00; Stop 09/04/17 at 13:23; Status DC Nystatin (Mycostatin Liq) 5 ml QID SWISH-SWAL Last administered on 10/17/17 14:28; Start 09/07/17 at 13:00; Stop 10/17/17 at 15:32; Status DC Hydrochlorothiazide (Microzide) 12.5 mg DAILY PO Last administered on 08:12; Start 09/15/17 at 11:45; Stop 09/27/17 at 09:00; Status DC Hydrochlorothiazide (Hydrodiuril) 25 mg DAILY PO Last administered on 08:29; Start 09/27/17 at 09:15; Status Future hold Vancomycin HCl 1000 mg/Sodium Chloride 250 ml @ 250 mls/hr ONCE ONCE IV Last administered on 10/10/17 11:28; Start 10/10/17 at 10:00; Stop 10/10/17 at 10:59 ; Status DC Pharmacy Profile Note 0 ml @ 0 mls/hr UNSCH OTHER ; Start 10/10/17 at 09:00; Stop 10/17/17 at 15:26; Status DC Potassium Bicarb/ Potassium Chloride (K-Lyte Cl Eff) 50 meq ONCE ONCE PEG Last administered on 10/10/17 10:14; Start 10/10/17 at 09:30; Stop 10/10/17 at 09:31; Status DC Vancomycin HCl 1250 mg/Sodium Chloride 262.5 ml @ 250 mls/hr Q12H IV Last administered on 10/11/17 18:08; Start 10/10/17 at 18:00; Stop 10/11/17 at 21:55 ; Status DC Miscellaneous Information SPECIFIC LAB TO BE DRAWN:VANCO TROUGH DATE TO BE DR... ONCE ONCE .XX Last administered on 10/11/17 17:20; Start 10/11/17 at 17 :45; Stop 10/11/17 at 17:46; Status DC Piperacillin Sod/ Tazobactam Sod 50 ml @ 100 mls/hr Q6HR IV ; Start 10/10/17 at 12:00; Stop 10/10/17 at 14:07; Status DC Piperacillin Sod/ Tazobactam Sod 50 ml @ 100 mls/hr Q6HR IV Last administered on 10/22/17 05:38; Start 10/10/17 at 15:00; Stop 10/22/17 at 08:29; Status DC Vancomycin HCl 1000 mg/Sodium Chloride 250 ml @ 250 mls/hr Q12H IV Last administered on 10/14/17 06:03; Start 10/12/17 at 06:00; Stop 10/14/17 at 13:01 ; Status DC Miscellaneous Information SPECIFIC LAB TO BE .. ONCE ONCE .XX Last administered on 10/14/17 05:45; Start 10/14/17 at 05:45; Stop 10/14/17 at 05:46 ; Status DC Collagenase (Santyl Oint) 1 applic BID TOPICAL Last administered on 10/18/17 21:00; Start 10/12/17 at 09:00; Stop 10/19/17 at 08:47; Status DC Potassium Chloride/Sodium Chloride 1,000 ml @ 100 mls/hr Q10H IV Last administered on 10/16/17 20:57; Start 10/13/17 at 09:00; Stop 10/17/17 at 04: 36; Status DC Fluconazole/ Sodium Chloride 100 ml @ 100 mls/hr Q24H IV Last administered on 10/15/17 12:49; Start 10/13/17 at 12:00; Stop 10/16/17 at 07:19; Status DC Iohexol (Omnipaque 350 Inj) 85 ml STK-MED ONCE IVCONTRAST Last administered on 10/13/17 12:29; Start 10/13/17 at 12:29; Stop 10/13/17 at 12:30; Status DC Potassium Chloride 100 ml @ 50 mls/hr Q2H IV Last administered on 10/14/17 12 :51; Start 10/14/17 at 08:30; Stop 10/14/17 at 12:29; Status DC Potassium Bicarb/ Potassium Chloride (K-Lyte Cl Eff) 50 meq ONCE ONCE PEG Last administered on 10/14/17 10:48; Start 10/14/17 at 08:15; Stop 10/14/17 at 08:17; Status DC Vancomycin HCl 1250 mg/Sodium Chloride 262.5 ml @ 250 mls/hr Q12H IV Last administered on 10/14/17 18:20; Start 10/14/17 at 18:00; Stop 10/15/17 at 09: 15; Status DC Miscellaneous Information SPECIFIC LAB TO BE DRAWN:VANCO TROUGH DATE TO BE ONCE ONCE .XX ; Start 10/16/17 at 05:45; Stop 10/16/17 at 05:46; Status Cancel Potassium Bicarb/ Potassium Chloride (K-Lyte Cl Eff) 50 meq ONCE ONCE PO Last administered on 10/15/17 11:45; Start 10/15/17 at 10:00; Stop 10/15/17 at 10:01; Status DC Vancomycin HCl 1250 mg/Sodium Chloride 262.5 ml @ 250 mls/hr Q12H IV Last administered on 10/17/17 10:01; Start 10/15/17 at 10:00; Stop 10/17/17 at 15 :26; Status DC Miscellaneous Information SPECIFIC LAB TO BE DRAWN:VANCOMYCIN TROUGH DATE TO... ONCE ONCE .XX Last administered on 10/16/17 21:45; Start 10/16/17 at 21:45 ; Stop 10/16/17 at 21:46; Status DC Ciprofloxacin (Cipro) 500 mg Q12HR PEG Last administered on 10/18/17 21:00; Start 10/16/17 at 09:00; Stop 10/19/17 at 09:14; Status DC Potassium Chloride/Sodium Chloride 1,000 ml @ 100 mls/hr Q10H IV Last administered on 10/17/17 10:02; Start 10/17/17 at 08:00; Stop 10/17/17 at 18 :32; Status DC Hydromorphone HCl (Dilaudid Pf Inj) 2 mg ONCE ONCE IV PUSH Last administered on 10/17/17 12:50; Start 10/17/17 at 12:15; Stop 10/17/17 at 12:16; Status DC Sodium Hypochlorite (Dakin'S 0.5% Soln) 500 ml ONCE ONCE TOPICAL Last administered on 10/17/17 14:28; Start 10/17/17 at 13:30; Stop 10/17/17 at 13 :35; Status DC Sodium Hypochlorite (Dakin'S 0.25% Soln) 50 ml BID TOPICAL Last administered on 10/18/17 21:00; Start 10/17/17 at 21:00; Stop 10/19/17 at 08:47; Status DC Morphine Sulfate (Morphine Inj) 2 mg BID PRN IV PUSH painful dressing changes Last administered on 10/20/17 09:23; Start 10/17/17 at 15:00; Stop 10/20/17 at 16:23; Status DC Benztropine Mesylate (Cogentin Inj) 0.5 mg HS IV PUSH ; Start 10/17/17 at 21:00 ; Stop 10/17/17 at 21:00; Status DC Naloxone HCl (Narcan Inj) 0.4 mg UNSCH X1 PRN IV PUSH RESP DEPRESSION OR HYPOTENSION; Start 10/17/17 at 17:30; Stop 10/20/17 at 17:29; Status DC Baclofen (Lioresal) 5 mg ONCE ONCE PO Last administered on 10/17/17 17:45; Start 10/17/17 at 17:45; Stop 10/17/17 at 17:46; Status DC Miscellaneous (Pill Splitter) 1 ea UNSCH PRN OTHER SEE LABEL COMMENTS Last administered on 12/08/17 20:45; Start 10/17/17 at 17:45 Sodium Chloride 1,000 ml @ 42 mls/hr [id number] IV Last administered on 06:00; Start 10/18/17 at 10:00; Stop 10/24/17 at 15:36; Status DC Collagenase (Santyl Oint) 1 applic BID TOPICAL Last administered on 11/14/17 07 :57; Start 10/19/17 at 10:00; Stop 11/17/17 at 09:01; Status DC Water (Free Water) 150 ml Q6HR G-TUBE Last administered on 01/02/18 11:52; Start 10/19/17 at 12:00 Morphine Sulfate (Morphine Inj) 2 mg BID PRN IV PUSH painful dressing changes Last administered on 10/22/17 09:40; Start 10/20/17 at 16:30; Stop 10/23/17 at 17:45; Status DC Sodium Chloride 500 ml @ 50 mls/hr Q10H IV ; Start 10/20/17 at 17:30; Stop at 17:56; Status DC Sodium Chloride 500 ml @ 1,000 mls/hr BOLUS ONCE IV Last administered on 18:00; Start 10/20/17 at 18:00; Stop 10/20/17 at 18:29; Status DC Diphenhydramine HCl (Benadryl Liq) 50 mg ONCE ONCE PO Last administered on 01:05; Start 10/22/17 at 00:15; Stop 10/22/17 at 00:18; Status DC Piperacillin Sod/ Tazobactam Sod 3.375 gm/Sodium Chloride 100 ml @ 100 mls/hr Q6HR IV Last administered on 10/23/17 17:24; Start 10/22/17 at 12:00; Stop 10/23/17 at 17:45; Status DC Diphenhydramine HCl (Benadryl Inj) 25 mg ONCE ONCE IM Last administered on 17:54; Start 10/23/17 at 17:15; Stop 10/23/17 at 17:40; Status DC Potassium Bicarb/ Potassium Chloride (K-Lyte Cl Eff) 25 meq ONCE ONCE PO ; Start 10/23/17 at 17:45; Stop 10/23/17 at 17:57; Status DC Cefepime HCl 1000 mg/Sodium Chloride 100 ml @ 200 mls/hr Q12H IV Last administered on 11/10/17 09:06; Start 10/23/17 at 20:00; Stop 11/10/17 at 19:59 ; Status DC Levofloxacin/ Dextrose 100 ml @ 100 mls/hr Q24H IV Last administered on 17:56; Start 10/24/17 at 18:00; Stop 11/10/17 at 17:59; Status DC Ketorolac Tromethamine (Toradol Inj) 15 mg DAILY IV PUSH Last administered on 10/28/17 13:45; Start 10/24/17 at 09:00; Stop 10/29/17 at 08:59; Status DC Prednisone (predniSONE LIQ) 10 mg BID PO ; Start 10/23/17 at 21:00; Stop 10/23 at 21:51; Status DC Potassium Bicarb/ Potassium Chloride (K-Lyte Cl Eff) 25 meq ONCE ONCE PEG Last administered on 10/23/17 18:02; Start 10/23/17 at 18:00; Stop 10/23/17 at 18:01; Status DC Prednisone (predniSONE LIQ) 10 mg BID G-TUBE Last administered on 10/24/17 09 :34; Start 10/24/17 at 09:00; Stop 12/19/17 at 15:36; Status DC Potassium Chloride/Sodium Chloride 1,000 ml @ 42 mls/hr [id number] IV Last administered on 10/25/17t 11:37; Start 10/24/17 at 16:00; Stop 10/25/17 at 13 :32; Status DC Lisinopril (Prinivil) 10 mg BID PEG Last administered on 11/21/17at 21:41; Start 11/15/17 at 21:00; Stop 11/22/17 at 08:58; Status DC Sodium Chloride (NS Flush) 2 ml UNSCH PRN IV FLUSH FLUSH AFTER USING IV ACCESS Last administered on 12/31/17at 08:57; Start 11/17/17 at 10:15 Lisinopril (Prinivil) 5 mg BID PEG ; Start 11/22/17 at 09:15; Stop 11/23/17 at 11:24; Status DC Metoprolol Tartrate (Lopressor) 50 mg BID PEG Last administered on 11/23/17at 20 :50; Start 11/23/17 at 21:00; Stop 11/24/17 at 12:59; Status DC Metoprolol Tartrate (Lopressor) 25 mg BID PEG Last administered on 01/02/18at 08 :29; Start 11/24/17 at 21:00 Ceftriaxone Sodium 1000 mg/ Sodium Chloride 100 ml @ 200 mls/hr Q24H IV Last administered on 12/24/17at 08:43; Start 12/09/17 at 09:00; Stop 12/24/17 at 09:54 ; Status DC Polyethylene Glycol (Miralax) 17 gm DAILY PO Last administered on 12/14/17at 09: 08; Start 12/09/17 at 09:15; Stop 12/16/17 at 17:49; Status DC Hydralazine HCl (Apresoline) 50 mg Q6HR PEG Last administered on 12/12/17at 17:41 ; Start 12/11/17 at 06:00; Stop 12/12/17 at 19:14; Status DC Hydralazine HCl (Apresoline) 50 mg Q8HR PEG Last administered on 01/02/18at 11: 52; Start 12/12/17 at 22:00 Potassium Chloride/Dextrose/ Sod Cl 1,000 ml @ 84 mls/hr [id number] IV Last administered on 12/12/17at 20:40; Start 12/12/17 at 19:15; Stop 12/13/17 at 12:00; Status DC Diatrizoate Meglum/ Diatrizoate Sod ( Gastromikaela Salguero) 120 ml STK-MED ONCE PEG ; Start 12/13/17 at 15:17; Stop 12/13/17 at 15:18; Status DC Potassium Bicarb/ Potassium Chloride (K-Lyte Cl Eff) 25 meq ONCE ONCE PO Last administered on 12/16/17at 09:56; Start 12/16/17 at 10:00; Stop 12/16/17 at 10:24; Status DC Polyethylene Glycol (Miralax) 17 gm DAILY PRN PO SEVERE CONSTIPATION; Start 08/23 at 18:00 Nifedipine (Procardia) 40 mg Q6HR .XX Last administered on 12/27/17at 05:22; Start 12/17/17 at 18:00; Stop 12/27/17 at 09:37; Status DC Oxycodone/ Acetaminophen (Percocet 5-325 Mg) 1 tab Q6H PRN PO PAIN 3 TO 5 Last administered on 12/31/17at 14:34; Start 12/22/17 at 15:00 Oxycodone/ Acetaminophen (Percocet 10-325 Mg) 1 tab Q6H PRN PO PAIN 6-10 Last administered on 12/31/17at 04:45; Start 12/22/17 at 15:00 Clonidine (Catapres-Tts 0.2 Mg Patch.7d) 1 patch Q7D T-DERMAL Last administered on 12/24/17at 12:34; Start 12/24/17 at 11:00; Stop 12/26/17 at 17:20 ; Status DC Miscellaneous Information 1 Q7D T-DERMAL ; Start 12/31/17 at 11:00; Stop at 11:00; Status DC Albuterol/ Ipratropium (Duoneb Neb) 1 ampule STK-MED ONCE .ROUTE ; Start at 18:07; Stop 12/24/17 at 18:08; Status DC Collagenase (Santyl Oint) 1 applic DAILY TOPICAL Last administered on at 08:28; Start 12/25/17 at 17:00 Sodium Hypochlorite (Dakin'S 0.5% Soln) 500 ml DAILY TOPICAL ; Start 12/25/17 at 17:00; Stop 12/25/17 at 17:51; Status DC Sodium Hypochlorite (Dakin'S 0.25% Soln) 500 ml DAILY TOPICAL Last administered on 01/02/18at 08:28; Start 12/25/17 at 17:30 Clonidine (Catapres-Tts 0.1mg Patch.7d) 1 patch Q7D T-DERMAL Last administered on 12/26/17at 18:09; Start 12/26/17 at 18:00; Stop 12/28/17 at 23:53; Status DC Miscellaneous Information 1 Q7D T-DERMAL Last administered on 12/26/17at 18:00; Start 12/26/17 at 18:00; Stop 12/28/17 at 23:53; Status DC Nifedipine (Procardia) 40 mg Q6HR .XX Last administered on 01/02/18at 11:52; Start 12/27/17 at 12:00 Levofloxacin/ Dextrose 100 ml @ 100 mls/hr Q24H IV Last administered on at 20:07; Start 01/01/18 at 20:00; Stop 01/02/18 at 13:32; Status DC Levofloxacin (Levaquin) 750 mg DAILY PO ; Start 01/02/18 at 20:00; Stop at 19:59 Date of Insertion: Nov 08, 2017 A/P Problem List: (1) Major neurocognitive disorder ICD Code: F03.90 - Unspecified dementia without behavioral disturbance (2) Hemiparesis ICD Code: G81.90 - Hemiplegia, unspecified affecting unspecified side Status: Acute (3) Intracranial hemorrhage ICD Code: I62.9 - Nontraumatic intracranial hemorrhage, unspecified Status: Chronic (4) Aphasia ICD Code: R47.01 - Aphasia Assessment and Plan This is a 62-year-old female who presented with hemorrhagic CVA History of hemorrhagic CVA -Continue PT, OT, and ST -Poor prognosis. Patient does not participate in therapy. -Palliative care following. Difficulty replacement. UTI -Patient completed treatment with ceftriaxone. Last urine cultures grew Enterobacter. Remains afebrile. Dysphagia -Continue to CVA. -Status post PEG placement on 05/09/17 -Continue tube feeding as below. Hypertension emergency -Resolved. Patient currently on Nifedipine 40 mg every 6 hours, Lisinopril 10 mg twice daily, Apresoline 50 mg every 6 hours, Catapres TTS 3 patch, Metoprolol 100 mg twice daily, HCTZ 25 mg daily, and Apresoline, clonidine, Vasotec as needed -12/27decreased clonidine patch 12/26. Blood pressure improved today. Continue to monitor. Plan to discontinue clonidine in the coming days. Hyperglycemia -Glucerna for tube feeds -Follow blood sugars intermittently Xeroderma on bilateral feet -Lac-Hydrin 12% Lotion continued. Coccyx pressure wound, wound care following. Nutrition: - Tube feeds changed to Glucerna 1.5 , bolus feeding with Tyshawn. DVT Prophylaxis: SCDs given history of recent intracranial hemorrhage SEVERE DEPRESSION- START LEXAPRO 10MG VIA PEG Discharge Planning Very poor prognosis. Patient does not display any meaningful involvement with therapy. Difficult DC. Awaiting placement, CM ff. In the meantime patient will receive therapy here. Discharge Planning PENDING SAFE PLACEMENT AND FAMILY AGREEMENT Harry Vargas DO Jan 02, 2018 17:15
[2018-01-02 20:00] VITALS: BP 114/86; PULSE 76; RESP 16; TEMP 100.6
[2018-01-02] MEDS ORDERED: LEVOFLOXACIN 750 MG TAB PO SCH (20:00)
[2018-01-02] MEDS: oxyCODONE/ACETAMINOPHEN 5 MG/325 MG TAB PO PRN (20:43)
[2018-01-03] VITALS (7 sets, daily range): BP systolic 90–130; BP diastolic 48–78; PULSE 78–120; RESP 16–22; TEMP 97.3–100; O2SAT 94–98
[2018-01-03] MEDS: FREE WATER G-TUBE SCH ×4 (05:15→23:07)
[2018-01-03] MEDS: NIFEdipine 20 MG CAP SCH ×4 (06:11→23:07)
[2018-01-03] MEDS: hydrALAZINE HCL 100 MG TAB PEG SCH ×3 (06:12→20:23)
[2018-01-03] MEDS ORDERED: LEVOFLOXACIN 750 MG TAB PEG SCH (08:15)
[2018-01-03] MEDS: METOPROLOL TARTRATE 25 MG TAB PEG SCH ×2 (09:00→20:24)
[2018-01-03] MEDS: HYDROCHLOROTHIAZIDE 25 MG TAB PO SCH (09:00)
--- NOTE | 2018-01-03 09:14 | HHI.IDPN ---
Subjective Subjective Remarks ID RECONSULT Gen. originally seen by infectious disease the first week of October for evaluation of fever . [place] the [place] with altered mental status and R weakness, found to be suffering from large left parenchymal hemorrhage was intraventricular extension on initial CT scan, now with prolonged hospital course without much improvement in mentation . Patient has had a h/o UTI and now has a sacral decubitus ulcer. Last 3 days patient has been having fevers. Started on Zosyn and now IV Vancomycin- with continued fevers so ID has been consulted. Still running fever. She had debridement of her sacral decubitus. Culture grew Pseudomonas. Patient completed a four-week course of IV antibiotic. She was initially on Zosyn, but developed a rash, and completed the course of treatment with IV cefepime. Patient since has been stable from ID standpoint up until about 3-4 days ago when she started having fevers. There was a urine culture from December to that had Enterobacter. I'm not sure if she received any treatment for that. Repeat urine culture from December 25 has Escherichia coli and Enterobacter. New cultures done 2 blood culture and urine culture that are still pending. Patient has a Helms catheter in place, last change December 09. ID reconsultation has been requested to evaluate the fever. She is currently on IV Levaquin Notes reviewed Temps low grade UC with Enterobacter Helms has been changed yesterday Antibiotics Current Medications Levaquin Medications (Trade) Dose Ordered Sig/Reymundo Route Start Time Stop Time Status Last Admin (Dulcolax Supp) 10 mg DAILY PRN RECTAL 04/10/17 22:00 (Lac-Hydrin 12% Lotion) 1 applic BID TOPICAL 05/04/17 14:00 01/02/18 08:28 (Prevacid Odt) 30 mg DAILY G-TUBE 05/10/17 09:00 01/02/18 08:29 (Apresoline) 25 mg Q4HR PRN PEG 05/18/17 14:45 11/04/17 14:28 (Zofran Liq) 4 mg Q6H PRN PEG 05/26/17 10:00 (Tylenol) 650 mg Q6H PRN PEG 06/16/17 16:00 Future Hold 10/17/17 19:29 (Senna Liq) 8.8 mg DAILY PEG 06/29/17 09:00 Future Hold 10/17/17 10:02 (Hydrodiuril) 25 mg DAILY PO 09/27/17 09:15 Future hold 01/02/18 08:29 (Pill Splitter) 1 ea UNSCH PRN OTHER 10/17/17 17:45 12/08/17 20:45 (Free Water) 150 ml Q6HR G-TUBE 10/19/17 12:00 01/02/18 11:52 (NS Flush) 2 ml UNSCH PRN IV FLUSH 11/17/17 10:15 12/31/17 08:57 (Lopressor) 25 mg BID PEG 11/24/17 21:00 01/02/18 08:29 (Apresoline) 50 mg Q8HR PEG 12/12/17 22:00 01/02/18 11:52 (Miralax) 17 gm DAILY PRN PO 12/16/17 18:00 (Percocet 5-325 Mg) 1 tab Q6H PRN PO 12/22/17 15:00 12/31/17 14:34 (Percocet 10-325 Mg) 1 tab Q6H PRN PO 12/22/17 15:00 12/31/17 04:45 (Santyl Oint) 1 applic DAILY TOPICAL 12/25/17 17:00 01/02/18 08:28 (Dakin'S 0.25% Soln) 500 ml DAILY TOPICAL 12/25/17 17:30 01/02/18 08:28 (Procardia) 40 mg Q6HR .XX 12/27/17 12:00 01/02/18 11:52 Levofloxacin/ Dextrose 100 ml @ 100 mls/hr Q24H IV 01/01/18 20:00 01/01/18 20:07 Lines Peripheral IV line Past Medical History Intracranial Hemorrhage Allergies: Coded Allergies: No Known Allergies (Unverified , 09/05/16) Objective . Vital Signs Date Time Temp Pulse Resp B/P (MAP) Pulse Ox O2 Delivery O2 Flow Rate FiO2 01/03/18 04:00 99.2 84 16 109/78 (88) 01/03/18 00:00 100.0 100 18 97/69 (78) 01/02/18 20:00 100.6 76 16 114/86 (95) 01/02/18 17:13 97.6 70 14 100/56 (71) 98 01/02/18 12:00 98.9 78 14 136/84 (101) . Microbiology Date/Time Source Procedure Growth Status 01/01/18 20:28 Blood Peripheral Aerobic Blood Culture - Preliminary NO GROWTH IN 1 DAY Resulted 01/01/18 20:28 Blood Peripheral Anaerobic Blood Culture - Preliminary NO GROWTH IN 1 DAY Resulted 01/01/18 20:23 Blood Peripheral Aerobic Blood Culture - Preliminary NO GROWTH IN 1 DAY Resulted 01/01/18 20:23 Blood Peripheral Anaerobic Blood Culture - Preliminary NO GROWTH IN 1 DAY Resulted 01/01/18 20:36 Urine Clean Catch Urine Culture - Final Enterobacter Aerogenes Complete Imaging RADIOLOGY STUDIES/FILMS REVIEWED Chest X-Ray 01/01/18 0000 Signed Impressions: Service Date/Time: Monday, January 01, 2018 20:33 - CONCLUSION: 1. No acute findings. Adi Quarles MD Physical Exam GENERAL: This is a Chronically ill appearing patient, awake, follows some commands. Not in any distress. SKIN: Warm and dry, no generalized rash, no ecchymoses HEAD: Atraumatic. Normocephalic. No temporal or scalp tenderness. EYES: Extraocular motions intact. No scleral icterus. No injection or drainage. EARS, NOSE AND THROAT: Moist mucosa, come white coating on her tongue, did not completely open mouth for full exam. No nasl discharde NECK: Trachea midline. No JVD or lymphadenopathy. Supple, nontender, no meningeal signs. CARDIOVASCULAR: Regular rate and rhythm . Soft systolic murmur at LSB. RESPIRATORY: Clear to auscultation. Breath sounds equal bilaterally. No wheezes , rales, or rhonchi. GASTROINTESTINAL: Abdomen soft, non-tender, nondistended. No hepato-splenomegaly , or palpable masses. No guarding. Peg tube site ok MUSCULOSKELETAL: Extremities with wasting. NO edema. Both feet plantar flexed NEUROLOGICAL: Awake and alert. Patient with hemiplegia LINE: PIV no evidence of infection : Helms in place, urine looks clear Assessment & Plan Remarks IMPRESSION New fever likely due to helms associated UTI S/P Rx infected sacral decubitus, PSAE S/P Rx previous UTI ICH RECOMMENDATION Continue Levaquin - plan 14 days Rx Monitor progress Follow temps I will be off 01/04-01/07 Other ID covering in my absence Kaylyn Gilliland MD Jan 03, 2018 09:14
[2018-01-03] MEDS: ESCITALOPRAM OXALATE 10 MG TAB PEG SCH (09:42)
[2018-01-03] MEDS: LACTIC ACID (AMMONIUM LACTATE) 12% LOTION 225 GM BTL TOPICAL SCH ×2 (09:43→20:24)
[2018-01-03] MEDS: oxyCODONE/ACETAMINOPHEN 5 MG/325 MG TAB PO PRN ×2 (09:43→20:23)
[2018-01-03] MEDS: SODIUM HYPOCHLORITE 0.25% 500 ML BTL TOPICAL SCH (09:44)
[2018-01-03] MEDS: COLLAGENASE OINT 30 GM TUBE TOPICAL SCH (09:44)
[2018-01-03] MEDS: LANSOPRAZOLE SOLUTAB 30 MG TAB G-TUBE SCH (09:44)
--- NOTE | 2018-01-03 14:37 | HHI.PR ---
Subjective Remarks Patient is awake and alert and although she has knowing eyes she is nonverbal due to h/o hemorrhagic stroke. She is currently working with PT, somewhat uncomfortable, right hemiparesis. Objective Vitals Vital Signs Date Time Temp Pulse Resp B/P (MAP) Pulse Ox O2 Delivery O2 Flow Rate FiO2 01/03/18 04:00 99.2 84 16 109/78 (88) 01/03/18 00:00 100.0 100 18 97/69 (78) 01/02/18 20:00 100.6 76 16 114/86 (95) 01/02/18 17:13 97.6 70 14 100/56 (71) 98 I/O 01/02/18 01/02/18 01/02/18 01/03/18 01/03/18 01/03/18 07:00 15:00 23:00 07:00 15:00 23:00 Intake Total 600 ml 1260 ml 240 ml Output Total 750 ml 750 ml 550 ml Balance -150 ml 510 ml -310 ml Tube Feeding 240 ml 960 ml 240 ml Tube Irrigant 60 ml Other 300 ml 300 ml Output Urine Total 750 ml 750 ml 550 ml # Bowel Movements 1 1 1 Objective Remarks GENERAL: Thin patient, right hemiparesis due to hemorrhagic stroke SKIN: Decubitus ulcer sacrum, under bandage, draining HEAD: Normocephalic. EYES: No scleral icterus. No injection or drainage. NECK: Supple, trachea midline. No JVD or lymphadenopathy. CARDIOVASCULAR: Regular rate and rhythm without murmurs, gallops, or rubs. RESPIRATORY: Breath sounds equal bilaterally. No accessory muscle use. GASTROINTESTINAL: Abdomen soft, non-tender, nondistended. EXTREMITIES: No cyanosis, or edema. NEUROLOGICAL: Awake, alert, right hemiparesis Procedures Peg Tube placed 05/08/17 (Dr. De Los Santos) Date of Insertion: Nov 08, 2017 A/P Problem List: (1) Major neurocognitive disorder ICD Code: F03.90 - Unspecified dementia without behavioral disturbance (2) Hemiparesis ICD Code: G81.90 - Hemiplegia, unspecified affecting unspecified side Status: Acute (3) Intracranial hemorrhage ICD Code: I62.9 - Nontraumatic intracranial hemorrhage, unspecified Status: Chronic (4) Aphasia ICD Code: R47.01 - Aphasia Assessment and Plan History of hemorrhagic CVA Continue PT, OT, and ST Poor prognosis. Patient does not participate well with therapy. Palliative care following UTI ID suspects Cruz related infection Recommend Levaquin IV Appreciate infectious disease consult Dysphagia Due to hemorrhagic stroke Status post PEG placement on 05/09/17 Continue tube feedings Hypertension emergency Currently resolved. Continue nifedipine 40 mg Q6H, Lisinopril 10 mg BID, Apresoline 50 mg Q6H, Metoprolol 100 mg BID, HCTZ 25 mg Daily Vasotec IV PRN, Clonidine PRN Hyperglycemia Glucerna for tube feeds Follow blood sugars intermittently Xeroderma on bilateral feet Lac-Hydrin 12% Lotion continued. Coccyx pressure wound Seat Pillow ordered Wound care following Nutrition Tube feeds changed to Glucerna 1.5 , bolus feeding with Tyshawn. DVT Prophylaxis SCDs given history of recent intracranial hemorrhage SEVERE DEPRESSION Continue Lexapro 10 mg via PEG daily Discharge Planning Very poor prognosis. Patient does not display any meaningful involvement with therapy. Difficult DC. Awaiting placement Chauncey Cano MD Jan 03, 2018 14:36
[2018-01-03] MEDS: LEVOFLOXACIN 750 MG TAB PEG SCH (20:24)
[2018-01-04 00:25] VITALS: BP 130/92
[2018-01-04] MEDS: NIFEdipine 20 MG CAP SCH ×4 (05:10→23:25)
[2018-01-04] MEDS: hydrALAZINE HCL 100 MG TAB PEG SCH ×3 (05:10→21:57)
[2018-01-04] MEDS: FREE WATER G-TUBE SCH ×4 (05:10→23:01)
[2018-01-04 08:00] VITALS: BP 127/90; PULSE 73; RESP 18; TEMP 98.8; O2SAT 93
[2018-01-04] MEDS: LANSOPRAZOLE SOLUTAB 30 MG TAB G-TUBE SCH (08:21)
[2018-01-04] MEDS: ESCITALOPRAM OXALATE 10 MG TAB PEG SCH (08:21)
[2018-01-04] MEDS: COLLAGENASE OINT 30 GM TUBE TOPICAL SCH (08:21)
[2018-01-04] MEDS: HYDROCHLOROTHIAZIDE 25 MG TAB PO SCH (08:21)
[2018-01-04] MEDS: SODIUM CHLORIDE 0.9% FLUSH 10 ML FLUSH IV FLUSH PRN (08:21)
[2018-01-04] MEDS: METOPROLOL TARTRATE 25 MG TAB PEG SCH ×2 (08:21→20:14)
[2018-01-04] MEDS: LACTIC ACID (AMMONIUM LACTATE) 12% LOTION 225 GM BTL TOPICAL SCH ×2 (08:22→20:19)
[2018-01-04] MEDS: SODIUM HYPOCHLORITE 0.25% 500 ML BTL TOPICAL SCH (08:22)
--- NOTE | 2018-01-04 10:56 | HHI.PR ---
Subjective Remarks Patient is nonverbal but she is alert and interactive with her eyes, she seems to understand when I speak to her. She does not appear distressed. Objective Vitals Vital Signs Date Time Temp Pulse Resp B/P (MAP) Pulse Ox O2 Delivery O2 Flow Rate FiO2 01/04/18 08:00 98.8 73 18 127/90 (102) 93 01/04/18 00:25 130/92 (105) 01/03/18 21:30 20 01/03/18 20:00 99.3 120 22 102/69 (80) 94 01/03/18 16:00 97.6 98 20 130/75 (93) 98 01/03/18 14:00 98.0 78 20 108/60 (76) 01/03/18 12:00 97.3 80 20 100/52 (68) I/O 01/03/18 01/03/18 01/03/18 01/04/18 01/04/18 01/04/18 07:00 15:00 23:00 07:00 15:00 23:00 Intake Total 240 ml 1510 ml 640 ml Output Total 700 ml 0 ml 700 ml 450 ml Balance -460 ml 0 ml 810 ml 190 ml Tube Feeding 240 ml 960 ml 240 ml Tube Irrigant 100 ml Other 0 ml 550 ml 300 ml Output Urine Total 700 ml 700 ml 450 ml Tube Feeding Residual Discard 0 ml # Bowel Movements 1 1 Objective Remarks GENERAL: Thin patient, right hemiparesis due to hemorrhagic stroke, no distress SKIN: Decubitus ulcer sacrum, under bandage, draining HEAD: Normocephalic. EYES: No scleral icterus. No injection or drainage. NECK: Supple, trachea midline. No JVD or lymphadenopathy. CARDIOVASCULAR: Regular rate and rhythm without murmurs, gallops, or rubs. RESPIRATORY: Breath sounds equal bilaterally. No accessory muscle use. GASTROINTESTINAL: Abdomen soft, non-tender, nondistended. EXTREMITIES: No cyanosis, or edema. NEUROLOGICAL: Awake, alert, right hemiparesis Procedures Peg Tube placed 05/08/17 (Dr. De Los Santos) Date of Insertion: Nov 08, 2017 A/P Problem List: (1) Major neurocognitive disorder ICD Code: F03.90 - Unspecified dementia without behavioral disturbance (2) Hemiparesis ICD Code: G81.90 - Hemiplegia, unspecified affecting unspecified side Status: Acute (3) Intracranial hemorrhage ICD Code: I62.9 - Nontraumatic intracranial hemorrhage, unspecified Status: Chronic (4) Aphasia ICD Code: R47.01 - Aphasia Assessment and Plan 62-year-old female with history of hemorrhagic stroke, she remains here due to difficult placement issues. Currently being treated for UTI. No change to care plan today. History of hemorrhagic CVA Continue PT, OT, and ST Poor prognosis. Patient does not participate well with therapy. Palliative care following UTI ID suspects Cruz related infection Continue Levaquin IV Appreciate infectious disease consult Dysphagia Due to hemorrhagic stroke Status post PEG placement on 05/09/17 Continue tube feedings Hypertension emergency Currently resolved. Continue nifedipine 40 mg Q6H, Lisinopril 10 mg BID, Apresoline 50 mg Q6H, Metoprolol 100 mg BID, HCTZ 25 mg Daily Vasotec IV PRN, Clonidine PRN Hyperglycemia Glucerna for tube feeds Follow blood sugars intermittently Xeroderma on bilateral feet Lac-Hydrin 12% Lotion continued. Coccyx pressure wound Seat Pillow ordered Wound care following Nutrition Tube feeds changed to Glucerna 1.5 , bolus feeding with Tyshawn. DVT Prophylaxis SCDs given history of recent intracranial hemorrhage SEVERE DEPRESSION Continue Lexapro 10 mg via PEG daily Discharge Planning Very poor prognosis. Patient does not display any meaningful involvement with therapy. Difficult DC. Awaiting placement Chauncey Cano MD Jan 04, 2018 10:56
[2018-01-04 20:10] VITALS: BP 133/87; PULSE 85; RESP 20; TEMP 100.2; O2SAT 97
[2018-01-04] MEDS: LEVOFLOXACIN 750 MG TAB PEG SCH (20:13)
[2018-01-04] MEDS: oxyCODONE/ACETAMINOPHEN 10 MG/325 MG TAB PO PRN (20:14)
[2018-01-04 23:26] VITALS: BP 106/72; PULSE 76; RESP 20; TEMP 99.8; O2SAT 97
[2018-01-05 04:53] VITALS: BP 118/81; PULSE 79; RESP 20; TEMP 99; O2SAT 97
[2018-01-05] MEDS: FREE WATER G-TUBE SCH ×4 (05:54→23:26)
[2018-01-05] MEDS: hydrALAZINE HCL 100 MG TAB PEG SCH ×3 (05:54→21:10)
[2018-01-05] MEDS: NIFEdipine 20 MG CAP SCH ×4 (05:54→23:26)
[2018-01-05 07:15] VITALS: BP 115/77; PULSE 84; RESP 18; TEMP 99.3; O2SAT 98
[2018-01-05] MEDS: LANSOPRAZOLE SOLUTAB 30 MG TAB G-TUBE SCH (09:34)
[2018-01-05] MEDS: oxyCODONE/ACETAMINOPHEN 5 MG/325 MG TAB PO PRN ×2 (09:34→18:25)
[2018-01-05] MEDS: LACTIC ACID (AMMONIUM LACTATE) 12% LOTION 225 GM BTL TOPICAL SCH ×2 (09:35→20:27)
[2018-01-05] MEDS: ESCITALOPRAM OXALATE 10 MG TAB PEG SCH (09:35)
[2018-01-05] MEDS: SODIUM HYPOCHLORITE 0.25% 500 ML BTL TOPICAL SCH (09:35)
[2018-01-05] MEDS: COLLAGENASE OINT 30 GM TUBE TOPICAL SCH (09:36)
--- NOTE | 2018-01-05 11:21 | PD.WCN.NOT ---
Wound Consult Description: Follow up for sacral pressure injury Communicated with: Kane RN, Dr. Amber Cano Recommendation: 1. Wound Vac on Hold 2. Please cleanse wound with normal saline 3. Apply Santyl ointment 2mm thickness to wound bed lightly pack with calcium alginate ll cover with dry boarder gauze. 4 .Apply Calazime barrier cream to periwound. 5. Apply skin prep to intact skin before securing dressing with bordered gauze. Change dressing daily. Additional Information: Late entry from 01/04-Patient was seen today by global technical writer and [facility] for follow up of sacral wound.Patient alert in bed to self.Patient requires full assistance to reposition to Left side .Soiled dressing removed from sacrum to reveal a worsening stage 4 pressure injury measuring 5.2cm x 2.0cm x 2.9cm with undermining noted from 7-2 O'clock max depth 2.3cm @ 11 O'clock.Wound base is ~ 50% pink tissue ~30% yellow/black necrotic tissue ~10% bone ~10% red nongranulating tissue.Wound edges are uneven diffuse with area of necrosis @ 7 O 'clock.Patient wound cleansed with Dakins half strength solution rinsed with normal saline and pat dry.After cleanse wound had strong odor of fecal matter.No evidence of fecal mater cleansed out of wound.Santyl applied to wound base and moistened fluffed gauze applied to wound base then covered with boarder gauze. Yon Caruso [facility] Jan 05, 2018 11:21
[2018-01-05] MEDS: METOPROLOL TARTRATE 25 MG TAB PEG SCH ×2 (11:54→20:26)
[2018-01-05] MEDS: HYDROCHLOROTHIAZIDE 25 MG TAB PO SCH (11:55)
[2018-01-05 12:00] VITALS: BP 132/62; PULSE 78; RESP 20; TEMP 99.2; O2SAT 97
--- NOTE | 2018-01-05 14:10 | HHI.PR ---
Subjective Remarks Patient is nonverbal following hemorrhagic stroke. She is bedridden for the most part but up to chair with PT assistance. Today she is having her decubitus ulcer dressing changed Objective Vitals Vital Signs Date Time Temp Pulse Resp B/P (MAP) Pulse Ox O2 Delivery O2 Flow Rate FiO2 01/05/18 04:53 99.0 79 20 118/81 (93) 97 01/04/18 23:26 99.8 76 20 106/72 (83) 97 01/04/18 21:14 20 01/04/18 20:10 100.2 85 20 133/87 (102) 97 I/O 01/04/18 01/04/18 01/04/18 01/05/18 01/05/18 01/05/18 07:00 15:00 23:00 07:00 15:00 23:00 Intake Total 640 ml 1360 ml 960 ml Output Total 450 ml 650.0 ml 350 ml Balance 190 ml 710.0 ml 610 ml Tube Feeding 240 ml 960 ml 360 ml Tube Irrigant 100 ml 100 ml Other 300 ml 300 ml 600 ml Output Urine Total 450 ml 650 ml 350 ml Tube Feeding Residual Discard 0 ml # Bowel Movements 0 Objective Remarks GENERAL: Thin patient, right hemiparesis due to hemorrhagic stroke, no distress SKIN: Decubitus ulcer sacrum stage IV HEAD: Normocephalic. EYES: No scleral icterus. No injection or drainage. NECK: Supple, trachea midline. No JVD or lymphadenopathy. CARDIOVASCULAR: Regular rate and rhythm without murmurs, gallops, or rubs. RESPIRATORY: Breath sounds equal bilaterally. No accessory muscle use. GASTROINTESTINAL: Abdomen soft, non-tender, nondistended. EXTREMITIES: No cyanosis, or edema. NEUROLOGICAL: Awake, alert, right hemiparesis Procedures Peg Tube placed 05/08/17 (Dr. De Los Santos) Date of Insertion: Nov 08, 2017 A/P Problem List: (1) Major neurocognitive disorder ICD Code: F03.90 - Unspecified dementia without behavioral disturbance (2) Hemiparesis ICD Code: G81.90 - Hemiplegia, unspecified affecting unspecified side Status: Acute (3) Intracranial hemorrhage ICD Code: I62.9 - Nontraumatic intracranial hemorrhage, unspecified Status: Chronic (4) Aphasia ICD Code: R47.01 - Aphasia Assessment and Plan 62-year-old female with history of hemorrhagic stroke, she remains here due to difficult placement issues. Fever, UTI Infectious disease suspects Cruz related infection Continue Levaquin, urine culture shows sensitivity to Cipro Appreciate infectious disease consult We will check CBC for leukocytosis given ongoing fever History of hemorrhagic CVA Continue PT, OT, and ST Poor prognosis. Patient does not participate well with therapy. Palliative care following Dysphagia Due to hemorrhagic stroke Status post PEG placement on 05/09/17 Continue tube feedings Single episode of vomiting today Hypertension emergency Currently resolved. Continue nifedipine 40 mg Q6H, Lisinopril 10 mg BID, Apresoline 50 mg Q6H, Metoprolol 100 mg BID, HCTZ 25 mg Daily Vasotec IV PRN, Clonidine PRN Hyperglycemia Glucerna for tube feeds Follow blood sugars intermittently Xeroderma on bilateral feet Lac-Hydrin 12% Lotion continued. Coccyx pressure wound Stage IV pressure ulcer seat Pillow ordered Wound care following SEVERE DEPRESSION Continue Lexapro 10 mg via PEG daily Nutrition Tube feeds changed to Glucerna 1.5 , bolus feeding with Tyshawn. DVT Prophylaxis SCDs given history of recent intracranial hemorrhage Discharge Planning Very poor prognosis. Patient does not display any meaningful involvement with therapy. Difficult DC. Awaiting placement Chauncey Cano MD Jan 05, 2018 14:10
[2018-01-05 19:58] VITALS: BP 128/84; PULSE 88; RESP 20; TEMP 99.1; O2SAT 95
[2018-01-05] MEDS: LEVOFLOXACIN 750 MG TAB PEG SCH (20:27)
[2018-01-06 04:24] VITALS: BP 122/87; PULSE 89; RESP 20; TEMP 99.3; O2SAT 96
[2018-01-06] MEDS: hydrALAZINE HCL 100 MG TAB PEG SCH ×3 (05:07→21:33)
[2018-01-06] MEDS: NIFEdipine 20 MG CAP SCH ×4 (05:08→23:30)
[2018-01-06] MEDS: FREE WATER G-TUBE SCH ×4 (05:08→23:31)
[2018-01-06 07:15] VITALS: BP 107/74; PULSE 90; RESP 20; TEMP 99.1; O2SAT 97
[2018-01-06 08:20] LABS: BASOPHIL # 0.1 TH/MM3 (0-0.2); BASOPHIL % 1.7 % (0.0-2.0); EOSINOPHIL # 0.1 TH/MM3 (0-0.4); EOSINOPHIL % 1.4 % (0.0-4.0); HEMATOCRIT 30.4 % (35.0-46.0); LYMPH % 12.2 % (9.0-44.0); MEAN CELL VOLUME 81.2 FL (80.0-100.0); MEAN CORPUSCULAR HEMOGLOBIN 26.8 PG (27.0-34.0); MEAN PLATELET VOLUME 8.1 FL (7.0-11.0); MONO % 8.3 % (0.0-8.0); MONOCYTE # 0.7 TH/MM3 (0-0.9); NEUT % 76.4 % (16.0-70.0); PLATELET COUNT 398 TH/MM3 (150-450); RED BLOOD COUNT 3.74 MIL/MM3 (4.00-5.30); RED CELL DISTRIBUTION WIDTH 15.3 % (11.6-17.2); WHITE BLOOD COUNT 7.8 TH/MM3 (4.0-11.0)
[2018-01-06] MEDS: oxyCODONE/ACETAMINOPHEN 10 MG/325 MG TAB PO PRN (08:22)
[2018-01-06] MEDS ORDERED: GADODIAMIDE PF 287 MG/ML 10 ML VIAL (for RAD MRI) IVCONTRAST ONE (09:20)
--- NOTE | 2018-01-06 09:32 | RADRPT ---
EXAM DATE/TIME: 01/06/2018 08:30 [place] COMPARISON: No previous studies available for comparison. INDICATIONS : Osteomyelitis. Large sacral wound. CONTRAST: 10 cc Omniscan (gadodiamide) IV MEDICAL HISTORY : Hypertension. SURGICAL HISTORY : Peg tube placement. ENCOUNTER: Initial ACUITY: 1 month PAIN SCORE: 5/10 LOCATION: Sacrum. TECHNIQUE: Multiplanar multisequence MRI examination of the sacrum/coccyx was performed. FINDINGS: BONE/CARTILAGE: There is a large decubitus ulcer posteriorly extending all the way to the mid body of the coccyx. The tip of the coccyx is spared. The edematous coccyx it is at least 3.5 cm in length. There is marked enhancement surrounding the coccyx extending into the presacral space where there is fluid on the T2 images. The decubitus ulcers at least 3.6 cm across MUSCLES/TENDONS: Decubitus extends into the origin of the gluteus anh on the right MISCELLANEOUS: Neurovascular structures are within normal limits. 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 The coccygeal involvement is at least 3.5 cm in length. Eliud Du MD on January 06, 2018 at 9:26 Board Certified Radiologist. This report was verified electronically.
[2018-01-06] MEDS: ESCITALOPRAM OXALATE 10 MG TAB PEG SCH (09:52)
[2018-01-06] MEDS: METOPROLOL TARTRATE 25 MG TAB PEG SCH ×2 (09:52→20:00)
[2018-01-06] MEDS: LANSOPRAZOLE SOLUTAB 30 MG TAB G-TUBE SCH (09:52)
[2018-01-06] MEDS: LACTIC ACID (AMMONIUM LACTATE) 12% LOTION 225 GM BTL TOPICAL SCH ×2 (09:53→20:02)
[2018-01-06] MEDS: HYDROCHLOROTHIAZIDE 25 MG TAB PO SCH (09:53)
[2018-01-06] MEDS: COLLAGENASE OINT 30 GM TUBE TOPICAL SCH (09:53)
--- NOTE | 2018-01-06 12:15 | HHI.PR ---
Subjective Remarks Pt seen and examined. Vitals and labs reviewed. Case discussed with nursing. There was a concern for potential tracking and fecal odor of patients worsening large sacral ulcer and an MRI was ordered. Wound care is following. No fevers. Family at bedside with no questions. Pt can follow commands and communicate some per nursing but not this morning on exam. Objective Vitals Vital Signs Date Time Temp Pulse Resp B/P (MAP) Pulse Ox O2 Delivery O2 Flow Rate FiO2 01/06/18 07:15 99.1 90 20 107/74 (85) 97 01/06/18 04:24 99.3 89 20 122/87 (99) 96 01/05/18 19:58 99.1 88 20 128/84 (99) 95 01/05/18 19:30 16 I/O 01/05/18 01/05/18 01/05/18 01/06/18 01/06/18 01/06/18 07:00 15:00 23:00 07:00 15:00 23:00 Intake Total 960 ml 1510 ml 1400 ml Output Total 350.0 ml 650.0 ml 750 ml 0 ml Balance 610.0 ml 860.0 ml 650 ml 0 ml Tube Feeding 360 ml 960 ml 800 ml Other 600 ml 550 ml 600 ml Output Urine Total 350 ml 650 ml 750 ml Tube Feeding Residual Discard 0 ml 0 ml 0 ml 0 ml # Bowel Movements 0 1 1 Result Diagram: 01/06/18 0757 Objective Remarks GENERAL: Thin female laying in bed. Nonverbal. Not responding to commands today. SKIN: Large stage IV sacral ulcer with yellow drainage. No obvious fecal material. HEAD: Normocephalic. EYES: No scleral icterus. No injection or drainage. NECK: Supple, trachea midline. No JVD or lymphadenopathy. CARDIOVASCULAR: Regular rate and rhythm without murmurs, gallops, or rubs. RESPIRATORY: Breath sounds equal bilaterally. No accessory muscle use. GASTROINTESTINAL: Abdomen soft, non-tender, nondistended. EXTREMITIES: No cyanosis, or edema. NEUROLOGICAL: Awake, nonverbal and not responding to commands. Procedures Peg Tube placed 05/08/17 (Dr. De Los Santos) Date of Insertion: Nov 08, 2017 A/P Problem List: (1) Major neurocognitive disorder ICD Code: F03.90 - Unspecified dementia without behavioral disturbance (2) Hemiparesis ICD Code: G81.90 - Hemiplegia, unspecified affecting unspecified side Status: Acute (3) Intracranial hemorrhage ICD Code: I62.9 - Nontraumatic intracranial hemorrhage, unspecified Status: Chronic (4) Aphasia ICD Code: R47.01 - Aphasia Assessment and Plan 62-year-old female with history of hemorrhagic stroke and resulting neurocognitive decline. UTI Ctx growing Enterobacter aerogenes. Patient on Levaquin x 14 days (started 01/03) Infectious disease suspects Cruz related infection Appreciate infectious disease consult Pt remains afebrile Sacral ulcer Stage IV pressure ulcer Concern for possible tracking and MRI ordered MRI showing bony edema and marrow replacement concerning for osteomyelitis Extends into presacral fat and 3.5 cm coccygeal involvement Wound care following Nursing to speak with ID about possible osteomyelitis History of hemorrhagic CVA Continue PT, OT, and ST Poor prognosis. Patient does not participate well with therapy Palliative care following Dysphagia Due to hemorrhagic stroke Status post PEG placement on 05/09/17 Continue tube feedings HTN Continue nifedipine 40 mg Q6H, Lisinopril 10 mg BID, Apresoline 50 mg Q6H, Metoprolol 100 mg BID, HCTZ 25 mg Daily Vasotec IV PRN, Clonidine PRN Hyperglycemia Glucerna for tube feeds Follow blood sugars intermittently Xeroderma on bilateral feet Lac-Hydrin 12% Lotion continued Depression Continue Lexapro 10 mg via PEG daily Nutrition Tube feeds changed to Glucerna 1.5 , bolus feeding with Tyshawn DVT Prophylaxis SCDs given history of recent intracranial hemorrhage Discharge Planning Very poor prognosis. Patient does not display any meaningful involvement with therapy. Difficult DC. Awaiting placement Kat Harris MD Jan 06, 2018 12:15
[2018-01-06] MEDS: oxyCODONE/ACETAMINOPHEN 5 MG/325 MG TAB PO PRN (14:12)
[2018-01-06 19:18] VITALS: BP 144/88; PULSE 86; RESP 20; TEMP 100; O2SAT 98
[2018-01-06] MEDS: LEVOFLOXACIN 750 MG TAB PEG SCH (19:58)
[2018-01-07 00:03] VITALS: BP 146/98; PULSE 67; RESP 20; TEMP 99.3; O2SAT 97
[2018-01-07] MEDS: FREE WATER G-TUBE SCH ×3 (06:00→12:38)
[2018-01-07] MEDS: hydrALAZINE HCL 100 MG TAB PEG SCH ×3 (06:08→21:21)
[2018-01-07] MEDS: NIFEdipine 20 MG CAP SCH ×3 (06:08→16:55)
[2018-01-07 08:45] VITALS: BP 113/70; PULSE 78; RESP 16; O2SAT 99
[2018-01-07] MEDS: ESCITALOPRAM OXALATE 10 MG TAB PEG SCH (09:24)
[2018-01-07] MEDS: HYDROCHLOROTHIAZIDE 25 MG TAB PO SCH (09:24)
[2018-01-07] MEDS: METOPROLOL TARTRATE 25 MG TAB PEG SCH ×2 (09:24→21:21)
[2018-01-07] MEDS: LACTIC ACID (AMMONIUM LACTATE) 12% LOTION 225 GM BTL TOPICAL SCH ×2 (09:24→21:21)
[2018-01-07] MEDS: LANSOPRAZOLE SOLUTAB 30 MG TAB G-TUBE SCH (09:24)
[2018-01-07] MEDS: COLLAGENASE OINT 30 GM TUBE TOPICAL SCH (09:25)
--- NOTE | 2018-01-07 12:16 | HHI.PR ---
Subjective Remarks Pt seen and examined. VS reviewed. No acute events or changes per nursing. Objective Vitals Vital Signs Date Time Temp Pulse Resp B/P (MAP) Pulse Ox O2 Delivery O2 Flow Rate FiO2 01/07/18 08:45 78 16 113/70 (84) 99 01/07/18 00:03 99.3 67 20 146/98 (114) 97 01/06/18 19:18 100.0 86 20 144/88 (106) 98 01/06/18 15:00 20 I/O 01/06/18 01/06/18 01/06/18 01/07/18 01/07/18 01/07/18 06:59 14:59 22:59 06:59 14:59 22:59 Intake Total 1400 ml 1510 ml 1000 ml Output Total 750 ml 0 ml 550 ml 550 ml 0 ml Balance 650 ml 0 ml 960 ml 450 ml 0 ml Intake Oral 0 ml Tube Feeding 800 ml 960 ml 400 ml Other 600 ml 550 ml 600 ml Output Urine Total 750 ml 550 ml 550 ml Tube Feeding Residual Discard 0 ml 0 ml 0 ml # Bowel Movements 1 3 2 Result Diagram: 01/06/18 0757 Objective Remarks GENERAL: Thin female laying in bed. Nonverbal. Not responding to commands today. SKIN: From 01/06: large stage IV sacral ulcer with yellow drainage. No obvious fecal material. Not examined today (01/07) HEAD: Normocephalic. EYES: No scleral icterus. No injection or drainage. NECK: Supple, trachea midline. No JVD or lymphadenopathy. CARDIOVASCULAR: Regular rate and rhythm without murmurs, gallops, or rubs. RESPIRATORY: Breath sounds equal bilaterally. No accessory muscle use. GASTROINTESTINAL: Abdomen soft, non-tender, nondistended. EXTREMITIES: No cyanosis, or edema. NEUROLOGICAL: Awake, nonverbal. Responds to commands such as hand drafter (cad) electrical. Procedures Peg Tube placed 05/08/17 (Dr. De Los Santos) Date of Insertion: Nov 08, 2017 A/P Problem List: (1) Major neurocognitive disorder ICD Code: F03.90 - Unspecified dementia without behavioral disturbance (2) Hemiparesis ICD Code: G81.90 - Hemiplegia, unspecified affecting unspecified side Status: Acute (3) Intracranial hemorrhage ICD Code: I62.9 - Nontraumatic intracranial hemorrhage, unspecified Status: Chronic (4) Aphasia ICD Code: R47.01 - Aphasia Assessment and Plan 62-year-old female with history of hemorrhagic stroke and resulting neurocognitive decline. UTI Ctx growing Enterobacter aerogenes. Patient on Levaquin x 14 days (started 01/03) Infectious disease suspects Cruz related infection Appreciate infectious disease consult Pt remains afebrile Sacral ulcer Stage IV pressure ulcer Concern for possible tracking and MRI ordered MRI showing bony edema and marrow replacement concerning for osteomyelitis; ID to see patient tomorrow Extends into presacral fat and 3.5 cm coccygeal involvement Wound care following History of hemorrhagic CVA Continue PT, OT, and ST Poor prognosis. Patient does not participate well with therapy Palliative care following Dysphagia Due to hemorrhagic stroke Status post PEG placement on 05/09/17 Continue tube feedings HTN Continue nifedipine 40 mg Q6H, Lisinopril 10 mg BID, Apresoline 50 mg Q6H, Metoprolol 100 mg BID, HCTZ 25 mg Daily Vasotec IV PRN, Clonidine PRN Hyperglycemia Glucerna for tube feeds Follow blood sugars intermittently Xeroderma on bilateral feet Lac-Hydrin 12% Lotion continued Depression Continue Lexapro 10 mg via PEG daily Nutrition Tube feeds changed to Glucerna 1.5 , bolus feeding with Tyshawn DVT Prophylaxis SCDs given history of recent intracranial hemorrhage Discharge Planning Very poor prognosis. Patient does not display any meaningful involvement with therapy. Difficult DC. Awaiting placement Kat Harris MD Jan 07, 2018 12:16
[2018-01-07 20:40] VITALS: BP 127/72; PULSE 88; RESP 18; TEMP 97.7; O2SAT 98
[2018-01-07] MEDS: LEVOFLOXACIN 750 MG TAB PEG SCH (21:21)
[2018-01-08 00:10] VITALS: BP 121/85; PULSE 98; RESP 19; TEMP 98.5; O2SAT 98
[2018-01-08] MEDS: NIFEdipine 20 MG CAP SCH ×6 (00:14→23:41)
[2018-01-08] MEDS: FREE WATER G-TUBE SCH ×5 (00:15→23:41)
[2018-01-08 05:23] VITALS: BP 128/90; PULSE 77; RESP 18; TEMP 98.1; O2SAT 97
[2018-01-08] MEDS: hydrALAZINE HCL 100 MG TAB PEG SCH ×4 (05:26→20:19)
[2018-01-08 07:15] VITALS: BP 110/75; PULSE 124; RESP 15; TEMP 99.5; O2SAT 99
[2018-01-08] MEDS: LACTIC ACID (AMMONIUM LACTATE) 12% LOTION 225 GM BTL TOPICAL SCH ×2 (09:00→20:20)
[2018-01-08] MEDS: COLLAGENASE OINT 30 GM TUBE TOPICAL SCH (09:00)
[2018-01-08] MEDS: HYDROCHLOROTHIAZIDE 25 MG TAB PO SCH (09:04)
[2018-01-08] MEDS: METOPROLOL TARTRATE 25 MG TAB PEG SCH ×2 (09:04→20:19)
[2018-01-08] MEDS: LANSOPRAZOLE SOLUTAB 30 MG TAB G-TUBE SCH (09:04)
[2018-01-08] MEDS: ESCITALOPRAM OXALATE 10 MG TAB PEG SCH (09:04)
[2018-01-08 12:12] VITALS: BP 102/67; PULSE 95; RESP 16; TEMP 99.2; O2SAT 97
--- NOTE | 2018-01-08 16:06 | HHI.PR ---
Subjective Remarks Patient seen today around 2 PM. Discussed with nursing. No acute events. Patient continues nonverbal. Appears to deny pain. Objective Vital Signs Date Time Temp Pulse Resp B/P (MAP) Pulse Ox O2 Delivery O2 Flow Rate FiO2 01/08/18 12:12 99.2 95 16 102/67 (79) 97 01/08/18 07:15 99.5 124 15 110/75 (87) 99 01/08/18 05:23 98.1 77 18 128/90 (103) 97 01/08/18 00:10 98.5 98 19 121/85 (97) 98 01/07/18 20:40 97.7 88 18 127/72 (90) 98 I/O 01/07/18 01/07/18 01/07/18 01/08/18 01/08/18 01/08/18 07:00 15:00 23:00 07:00 15:00 23:00 Intake Total 1000 ml 1560 ml 540 ml Output Total 550 ml 0 ml 1375 ml 340 ml Balance 450 ml 0 ml 185 ml 200 ml Intake Oral 0 ml Tube Feeding 400 ml 960 ml 240 ml Other 600 ml 600 ml 300 ml Output Urine Total 550 ml 1375 ml 340 ml Tube Feeding Residual Discard 0 ml # Bowel Movements 2 2 1 2 Result Diagram: 01/06/18 0757 Procedures No procedures performed Objective Remarks GENERAL: Patient lying in bed. Appears comfortable. Appears to answer no in regards to if she has pain. No other meaningful communication. no change on exam. SKIN: Warm and dry. HEAD: Normocephalic. EYES: No scleral icterus. No injection or drainage. NECK: Supple, trachea midline. No JVD. CARDIOVASCULAR: Regular rate and rhythm without murmurs, gallops, or rubs. RESPIRATORY: Breath sounds equal bilaterally. No accessory muscle use. GASTROINTESTINAL: Abdomen soft, non-tender, nondistended. PEG tube in place without leakage. MUSCULOSKELETAL: No cyanosis, or edema. BACK: Nontender without obvious deformity. No CVA tenderness. A/P Assessment and Plan Patient seen and examined. Discussed with nursing. No changes in management. 62-year-old female with history of hemorrhagic stroke and resulting neurocognitive decline. //UTI Ctx growing Enterobacter aerogenes. Patient on Levaquin x 14 days (started 01/03) Infectious disease suspects Cruz related infection Appreciate infectious disease consult Pt remains afebrile //Sacral ulcer Stage IV pressure ulcer Concern for possible tracking and MRI ordered MRI showing bony edema and marrow replacement concerning for osteomyelitis; ID to see patient tomorrow Extends into presacral fat and 3.5 cm coccygeal involvement Wound care following //History of hemorrhagic CVA Continue PT, OT, and ST Poor prognosis. Patient does not participate well with therapy Palliative care following //Dysphagia Due to hemorrhagic stroke Status post PEG placement on 05/09/17 Continue tube feedings //HTN Continue nifedipine 40 mg Q6H, Lisinopril 10 mg BID, Apresoline 50 mg Q6H, Metoprolol 100 mg BID, HCTZ 25 mg Daily Vasotec IV PRN, Clonidine PRN //Hyperglycemia Glucerna for tube feeds Follow blood sugars intermittently //Xeroderma on bilateral feet Lac-Hydrin 12% Lotion continued //Depression Continue Lexapro 10 mg via PEG daily //Nutrition Tube feeds changed to Glucerna 1.5 , bolus feeding with Tyshawn //DVT Prophylaxis SCDs given history of recent intracranial hemorrhage Discharge Planning Very poor prognosis. Patient does not display any meaningful involvement with therapy. Difficult DC. Awaiting placement Kevyn Cheema MD Jan 08, 2018 16:06
[2018-01-08 20:00] VITALS: BP 127/86; PULSE 80; RESP 20; TEMP 99.8; O2SAT 98
[2018-01-08] MEDS: LEVOFLOXACIN 750 MG TAB PEG SCH (20:19)
[2018-01-09] VITALS: BP 137/91; PULSE 80; RESP 20; TEMP 99.8
[2018-01-09 04:02] VITALS: BP 127/83; PULSE 106; RESP 18; TEMP 98.8; O2SAT 93
[2018-01-09] MEDS: FREE WATER G-TUBE SCH ×4 (05:06→23:56)
[2018-01-09] MEDS: hydrALAZINE HCL 100 MG TAB PEG SCH ×3 (05:06→20:53)
[2018-01-09] MEDS: NIFEdipine 20 MG CAP SCH ×4 (05:06→23:56)
[2018-01-09 07:56] VITALS: BP 118/82; PULSE 70; RESP 12; TEMP 98.4; O2SAT 98
--- NOTE | 2018-01-09 08:48 | HHI.IDPN ---
Subjective Subjective Remarks ID RECONSULT Gen. originally seen by infectious disease the first week of October for evaluation of fever . [place] the park with altered mental status and R weakness, found to be suffering from large left parenchymal hemorrhage was intraventricular extension on initial CT scan, now with prolonged hospital course without much improvement in mentation . Patient has had a h/o UTI and now has a sacral decubitus ulcer. Last 3 days patient has been having fevers. Started on Zosyn and now IV Vancomycin- with continued fevers so ID has been consulted. Still running fever. She had debridement of her sacral decubitus. Culture grew Pseudomonas. Patient completed a four-week course of IV antibiotic. She was initially on Zosyn, but developed a rash, and completed the course of treatment with IV cefepime. Patient since has been stable from ID standpoint up until about 3-4 days ago when she started having fevers. There was a urine culture from December to that had Enterobacter. I'm not sure if she received any treatment for that. Repeat urine culture from December 25 has Escherichia coli and Enterobacter. New cultures done 2 blood culture and urine culture that are still pending. Patient has a Helms catheter in place, last change December 09. ID reconsultation has been requested to evaluate the fever. She is currently on IV Levaquin Notes reviewed Temps better Per wound care notes the decubitus looks worse, has foul odor MRI scarum/coccyx noted Temps occ low grade She is awake and following commands Denies pain Antibiotics Current Medications Medications (Trade) Dose Ordered Sig/Reymundo Route Start Time Stop Time Status Last Admin (Dulcolax Supp) 10 mg DAILY PRN RECTAL 04/10/17 22:00 (Lac-Hydrin 12% Lotion) 1 applic BID TOPICAL 05/04/17 14:00 01/08/18 20:20 (Prevacid Odt) 30 mg DAILY G-TUBE 05/10/17 09:00 01/08/18 09:04 (Apresoline) 25 mg Q4HR PRN PEG 05/18/17 14:45 11/04/17 14:28 (Zofran Liq) 4 mg Q6H PRN PEG 05/26/17 10:00 (Tylenol) 650 mg Q6H PRN PEG 06/16/17 16:00 Future Hold 10/17/17 19:29 (Senna Liq) 8.8 mg DAILY PEG 06/29/17 09:00 Future Hold 10/17/17 10:02 (Hydrodiuril) 25 mg DAILY PO 09/27/17 09:15 Future hold 01/08/18 09:04 (Pill Splitter) 1 ea UNSCH PRN OTHER 10/17/17 17:45 12/08/17 20:45 (Free Water) 150 ml Q6HR G-TUBE 10/19/17 12:00 01/09/18 05:06 (NS Flush) 2 ml UNSCH PRN IV FLUSH 11/17/17 10:15 01/04/18 08:21 (Lopressor) 25 mg BID PEG 11/24/17 21:00 01/08/18 20:19 (Apresoline) 50 mg Q8HR PEG 12/12/17 22:00 01/09/18 05:06 (Miralax) 17 gm DAILY PRN PO 12/16/17 18:00 (Percocet 5-325 Mg) 1 tab Q6H PRN PO 12/22/17 15:00 01/06/18 14:12 (Percocet 10-325 Mg) 1 tab Q6H PRN PO 12/22/17 15:00 01/06/18 08:22 (Santyl Oint) 1 applic DAILY TOPICAL 12/25/17 17:00 01/08/18 09:00 (Procardia) 40 mg Q6HR .XX 12/27/17 12:00 01/09/18 05:06 (Lexapro) 10 mg DAILY PEG 01/02/18 17:15 01/08/18 09:04 (Levaquin) 750 mg Q24H PEG 01/03/18 20:00 01/16/18 19:59 01/08/18 20:19 Lines Peripheral IV line Past Medical History Intracranial Hemorrhage Allergies: Coded Allergies: No Known Allergies (Unverified , 09/05/16) Objective . Vital Signs Date Time Temp Pulse Resp B/P (MAP) Pulse Ox O2 Delivery O2 Flow Rate FiO2 01/09/18 07:56 98.4 70 12 118/82 (94) 98 01/09/18 04:02 98.8 106 18 127/83 (98) 93 01/09/18 00:00 99.8 80 20 137/91 (106) 01/08/18 20:00 99.8 80 20 127/86 (100) 98 01/08/18 12:12 99.2 95 16 102/67 (79) 97 01/09/18 01/09/18 01/10/18 15:00 23:00 07:00 Output Total 100 ml Balance -100 ml Output Urine Total 100 ml Imaging RADIOLOGY STUDIES/FILMS REVIEWED Sacrum/Coccyx MRI 01/06/18 0000 Signed Impressions: Service Date/Time: Saturday, January 06, 2018 08:30 - CONCLUSION: Large decubitus ulcer posteriorly with not only bony edema and marrow replacement concerning for osteomyelitis but it extends to the presacral fat is well where there is marked enhancement and fluid on the T2-weighted sequences. The coccygeal involvement is at least 3.5 cm in length. Eliud Du MD Chest X-Ray 01/01/18 0000 Signed Impressions: Service Date/Time: Monday, January 01, 2018 20:33 - CONCLUSION: 1. No acute findings. Adi Quarles MD Abdomen X-Ray 12/13/17 0000 Signed Impressions: Service Date/Time: Wednesday, December 13, 2017 14:17 - CONCLUSION: PEG tube in stomach.. Harry Dumas MD FACR Upper Extremity Ultrasound 11/06/17 0000 Signed Impressions: Service Date/Time: Monday, November 06, 2017 14:17 - CONCLUSION: Normal examination. Kelby Perez MD Pelvis CT 10/13/17 0000 Signed Impressions: Service Date/Time: Friday, October 13, 2017 12:02 - CONCLUSION: 1. Decubitus ulcer with small abscess in the right posterior perineal region measuring 3.1 x 4.6 cm. There is also a small abscess posterior and to the left of the rectum measuring 3.2 x 2.3 cm. Jann Weber MD Head CT 04/25/17 0000 Signed Impressions: Service Date/Time: Tuesday, April 25, 2017 18:02 - CONCLUSION: 1. Evolving left thalamic hematoma. No new hemorrhage. Adi Quarles MD Neck CTA 04/10/17 0000 Signed Impressions: Service Date/Time: Monday, April 10, 2017 22:28 - CONCLUSION: The internal carotid arteries are normal bilaterally. No significant atherosclerotic disease is noted. Eliud Du MD Head CTA 04/10/17 0000 Signed Impressions: Service Date/Time: Monday, April 10, 2017 22:50 - CONCLUSION: Mild dilatation of the basilar tip without discrete aneurysm. Some narrowing of the left middle cerebral branch after the bifurcation. Prominent left thalamic hemorrhage. Eliud Du MD Chest X-Ray 01/01/18 0000 Signed Impressions: Service Date/Time: Monday, January 01, 2018 20:33 - CONCLUSION: 1. No acute findings. Adi Quarles MD Physical Exam GENERAL: awake, follows some commands. Not in any distress. SKIN: Warm and dry, no generalized rash, no ecchymoses HEAD: Atraumatic. Normocephalic. No temporal or scalp tenderness. EYES: Extraocular motions intact. No scleral icterus. No injection or drainage. EARS, NOSE AND THROAT: Moist mucosa, come white coating on her tongue, did not completely open mouth for full exam. No nasl discharde NECK: Trachea midline. No JVD or lymphadenopathy. Supple, nontender, no meningeal signs. CARDIOVASCULAR: Regular rate and rhythm . Soft systolic murmur at LSB. RESPIRATORY: Clear to auscultation. Breath sounds equal bilaterally. No wheezes , rales, or rhonchi. GASTROINTESTINAL: Abdomen soft, non-tender, nondistended. No hepato-splenomegaly , or palpable masses. No guarding. Peg tube site ok MUSCULOSKELETAL: Extremities with wasting. NO edema. Both feet plantar flexed BACK: Dressing in place in decubitus, with stool, (+) odor NEUROLOGICAL: Awake and alert. Patient with hemiplegia LINE: PIV no evidence of infection : Helms in place, urine looks clear Assessment & Plan Remarks IMPRESSION New fever likely due to helms associated - helms changed monthly Sacral decubitus worsening, has findings of osteo on MRI - has fecal odor S/P Rx infected sacral decubitus, PSAE S/P Rx previous UTI ICH RECOMMENDATION Continue Levaquin Add Flagyl Ct A/P and see if any colon connection Monitor progress Follow temps Consider evaluation by plastics again Kaylyn Gilliland MD Jan 09, 2018 08:48
[2018-01-09] MEDS: COLLAGENASE OINT 30 GM TUBE TOPICAL SCH (08:49)
[2018-01-09] MEDS: METOPROLOL TARTRATE 25 MG TAB PEG SCH ×2 (08:49→20:53)
[2018-01-09] MEDS: LANSOPRAZOLE SOLUTAB 30 MG TAB G-TUBE SCH (08:50)
[2018-01-09] MEDS: LACTIC ACID (AMMONIUM LACTATE) 12% LOTION 225 GM BTL TOPICAL SCH ×2 (08:50→20:54)
[2018-01-09] MEDS: ESCITALOPRAM OXALATE 10 MG TAB PEG SCH (08:50)
[2018-01-09] MEDS: HYDROCHLOROTHIAZIDE 25 MG TAB PO SCH (08:50)
[2018-01-09] MEDS ORDERED: DIATRIZOATE MEGLUM/DIATRIZOATE SOD 9 ML CUP PO ONE (09:20)
[2018-01-09 11:46] LABS: BICARBONATE 30.8 MEQ/L (21.0-32.0); CALCIUM 8.7 MG/DL (8.5-10.1); CREATININE 0.36 MG/DL (0.50-1.00)
[2018-01-09] MEDS: metroNIDAZOLE 500 MG TAB PO SCH ×2 (12:27→17:07)
--- NOTE | 2018-01-09 15:51 | HHI.PR ---
Subjective Remarks Patient seen today around noon. No acute changes per nursing. Patient appears to deny pain. Objective Vital Signs Date Time Temp Pulse Resp B/P (MAP) Pulse Ox O2 Delivery O2 Flow Rate FiO2 01/09/18 07:56 98.4 70 12 118/82 (94) 98 01/09/18 04:02 98.8 106 18 127/83 (98) 93 01/09/18 00:00 99.8 80 20 137/91 (106) 01/08/18 20:00 99.8 80 20 127/86 (100) 98 I/O 01/08/18 01/08/18 01/08/18 01/09/18 01/09/18 01/09/18 07:00 15:00 23:00 07:00 15:00 23:00 Intake Total 540 ml 1560 ml 300 ml Output Total 340 ml 450 ml 100 ml Balance 200 ml 1110 ml 300 ml -100 ml Tube Feeding 240 ml 1200 ml Other 300 ml 360 ml 300 ml Output Urine Total 340 ml 450 ml 100 ml # Bowel Movements 1 2 2 Result Diagram: 01/06/18 0757 01/09/18 1107 Procedures No procedures performed Objective Remarks GENERAL: Patient lying in bed. Appears comfortable. Appears to answer no in regards to if she has pain. No other meaningful communication. Again, no change on exam. SKIN: Warm and dry. HEAD: Normocephalic. EYES: No scleral icterus. No injection or drainage. NECK: Supple, trachea midline. No JVD. CARDIOVASCULAR: Regular rate and rhythm without murmurs, gallops, or rubs. RESPIRATORY: Breath sounds equal bilaterally. No accessory muscle use. GASTROINTESTINAL: Abdomen soft, non-tender, nondistended. PEG tube in place without leakage. MUSCULOSKELETAL: No cyanosis, or edema. BACK: Nontender without obvious deformity. No CVA tenderness. A/P Assessment and Plan 01/09. Patient seen and examined. Low-grade fevers. Fecal odor from sacral ulcer. CT abdomen and pelvis pending. Continue antibiotics as per ID. Appreciate infectious disease assistance. Follow-up CT abdomen and pelvis. Hypokalemia replaced. Recheck labs tomorrow. 62-year-old female with history of hemorrhagic stroke and resulting neurocognitive decline. //UTI Ctx growing Enterobacter aerogenes. Patient on Levaquin x 14 days (started 01/03) Infectious disease suspects Cruz related infection Appreciate infectious disease consult Pt remains afebrile //Sacral ulcer Stage IV pressure ulcer Concern for possible tracking and MRI ordered MRI showing bony edema and marrow replacement concerning for osteomyelitis; ID to see patient tomorrow Extends into presacral fat and 3.5 cm coccygeal involvement Wound care following //History of hemorrhagic CVA Continue PT, OT, and ST Poor prognosis. Patient does not participate well with therapy Palliative care following //Dysphagia Due to hemorrhagic stroke Status post PEG placement on 05/09/17 Continue tube feedings //HTN Continue nifedipine 40 mg Q6H, Lisinopril 10 mg BID, Apresoline 50 mg Q6H, Metoprolol 100 mg BID, HCTZ 25 mg Daily Vasotec IV PRN, Clonidine PRN //Hyperglycemia Glucerna for tube feeds Follow blood sugars intermittently //Xeroderma on bilateral feet Lac-Hydrin 12% Lotion continued //Depression Continue Lexapro 10 mg via PEG daily //Nutrition Tube feeds changed to Glucerna 1.5 , bolus feeding with Tyshawn //DVT Prophylaxis SCDs given history of recent intracranial hemorrhage Discharge Planning Very poor prognosis. Patient does not display any meaningful involvement with therapy. Difficult DC. Awaiting placement Kevyn Cheema MD Jan 09, 2018 15:51
[2018-01-09] MEDS ORDERED: POTASSIUM CHLORIDE 25 MEQ EFFERVESCENT TAB PO ONE (16:00)
[2018-01-09] MEDS ORDERED: IOHEXOL 350 MG/ML 10 ML VIAL (for RAD DIAG) IVCONTRAST ONE (19:03)
[2018-01-09 20:00] VITALS: BP 130/89; PULSE 83; RESP 18; TEMP 98; O2SAT 97
[2018-01-09] MEDS: LEVOFLOXACIN 750 MG TAB PEG SCH (20:53)
--- NOTE | 2018-01-09 23:00 | RADRPT ---
EXAM DATE/TIME: 01/09/2018 18:48 [facility] COMPARISON: MRI SACRUM/COCCYX W & W/O CONTRAST, January 06, 2018, 8:30. INDICATIONS : Abdomen pain, decubitus sacral. IV CONTRAST: 74 cc Omnipaque 350 (iohexol) IV ORAL CONTRAST: Prescribed oral contrast ingested. RADIATION DOSE: 8.47 CTDIvol (mGy) MEDICAL HISTORY : None SURGICAL HISTORY : None. ENCOUNTER: Initial ACUITY: 1 day PAIN SCALE: Non-responsive LOCATION: Bilateral lower quadrant TECHNIQUE: Volumetric scanning of the abdomen and pelvis was performed. Using automated exposure control and ad justment of the mA and/or kV according to patient size, radiation dose was kept as low as reasonably achievable to obtain optimal diagnostic quality images. DICOM format image data is available electro nically for review and comparison. FINDINGS: There is artifact in the upper abdomen related to patient on position. LOWER LUNGS: Lung bases demonstrate no acute finding. LIVER: Homogeneous density without a concerning lesion. There is a 5 mm low density lesion in the right ante rior liver that is too small to characterize. There is no dilation of the biliary tree. No calcifie d gallstones. SPLEEN: Normal size without lesion. PANCREAS: Within normal limits. KIDNEYS: Normal in size and shape. There is no mass or hydronephrosis. There is a 3 mm nonobstructing right r enal stone. ADRENAL GLANDS: Within normal limits. VASCULAR: There is no aortic aneurysm. BOWEL/MESENTERY: The stomach, small bowel, and colon demonstrate no acute abnormality. There is no free intraperitone al air or fluid. G-tube is present within the stomach. ABDOMINAL WALL: No acute abnormality. RETROPERITONEUM: There is no lymphadenopathy. There is presacral edema. BLADDER: Cruz catheter is present within the urinary bladder. There is air in the bladder lumen. REPRODUCTIVE: Uterus is enlarged with multiple nodular mildly hyperdense mass is. One in the left fundus measures 2 .5 cm, and the other at the right fundus measures 2.9 cm, and a third in the lower uterine segment me asures 3.1 cm. INGUINAL: There is no lymphadenopathy or hernia. MUSCULOSKELETAL: There is a wound superficial to the sacrum. Prior MRI demonstrated abnormal signal within the sacrum and coccyx along with presacral edema. There is ossification within the distal left iliopsoas muscle. Degenerative changes are present in the lumbar spine. CONCLUSION: 1. There is a sacral decubitus wound/ulcer which extends to the sacrum. Prior MRI demonstrated abnorm al sacrum in the inferior aspect of the sacrum and coccyx. There is also presacral edema. These findi ngs are highly suspicious for osteomyelitis. 2. Nonacute findings include 3 mm nonobstructing right renal stone and multi-fibroid uterus. Hu Cuenca MD on January 09, 2018 at 22:52 Board Certified Radiologist. This report was verified electronically.
[2018-01-10] VITALS (9 sets, daily range): BP systolic 86–130; BP diastolic 48–90; PULSE 75–100; RESP 12–20; TEMP 98.8–99.9; O2SAT 95–99
[2018-01-10] MEDS: metroNIDAZOLE 500 MG TAB PO SCH ×3 (02:13→17:02)
[2018-01-10] MEDS: NIFEdipine 20 MG CAP SCH ×4 (06:00→23:39)
[2018-01-10] MEDS: FREE WATER G-TUBE SCH ×4 (06:00→23:39)
[2018-01-10] MEDS: hydrALAZINE HCL 100 MG TAB PEG SCH ×3 (06:06→20:01)
[2018-01-10 07:51] LABS: AUTOMATED NEUTROPHIL # 4.4 TH/MM3 (1.8-7.7); BASOPHIL # 0.1 TH/MM3 (0-0.2); BASOPHIL % 0.9 % (0.0-2.0); EOSINOPHIL # 0.2 TH/MM3 (0-0.4); EOSINOPHIL % 3.6 % (0.0-4.0); HEMATOCRIT 32.7 % (35.0-46.0); HEMOGLOBIN 10.6 GM/DL (11.6-15.3); LYMPH % 19.3 % (9.0-44.0); LYMPHOCYTE # 1.3 TH/MM3 (1.0-4.8); MEAN CELL VOLUME 82.1 FL (80.0-100.0); MEAN CORPUSCULAR HEMOGLOBIN 26.5 PG (27.0-34.0); MEAN CORPUSCULAR HGB CONC 32.3 % (32.0-36.0); MEAN PLATELET VOLUME 8.2 FL (7.0-11.0); MONO % 12.9 % (0.0-8.0); MONOCYTE # 0.9 TH/MM3 (0-0.9); NEUT % 63.3 % (16.0-70.0); PLATELET COUNT 408 TH/MM3 (150-450); RED BLOOD COUNT 3.98 MIL/MM3 (4.00-5.30); RED CELL DISTRIBUTION WIDTH 15.6 % (11.6-17.2); WHITE BLOOD COUNT 6.9 TH/MM3 (4.0-11.0)
[2018-01-10 07:56] LABS: ALBUMIN 2.8 GM/DL (3.4-5.0); BICARBONATE 29.1 MEQ/L (21.0-32.0); CREATININE 0.34 MG/DL (0.50-1.00); MAGNESIUM 2.2 MG/DL (1.5-2.5); PHOSPHORUS 2.5 MG/DL (2.5-4.9)
--- NOTE | 2018-01-10 11:32 | RADRPT ---
EXAM DATE/TIME: 01/10/2018 10:47 [facility] COMPARISON: CT BRAIN W/O CONTRAST, April 25, 2017, 18:02. INDICATIONS : Altered mental status. RADIATION DOSE: 44.30 CTDIvol (mGy) MEDICAL HISTORY : Stroke. SURGICAL HISTORY : None. ENCOUNTER: Initial ACUITY: 1 day PAIN SCALE: Non-responsive LOCATION: cranial TECHNIQUE: Multiple contiguous axial images were obtained of the head. Using automated exposure control and adj ustment of the mA and/or kV according to patient size, radiation dose was kept as low as reasonably a chievable to obtain optimal diagnostic quality images. DICOM format image data is available electro nically for review and comparison. FINDINGS: Atrophy. Extensive periventricular low attenuation change involving both cerebral hemispheres. Ventri culomegaly which is symmetrical in nature. Encephalomalacia involving the thalami bilaterally. No acu te hemorrhage or infarction observed. No mass. CONCLUSION: Atrophy, chronic small vessel ischemic change, and prior areas of infarction. No acute intracranial a bnormality. Phillip Patel Jr., MD on January 10, 2018 at 11:29 Board Certified Radiologist. This report was verified electronically.
[2018-01-10] MEDS: HYDROCHLOROTHIAZIDE 25 MG TAB PO SCH (12:11)
[2018-01-10] MEDS: LANSOPRAZOLE SOLUTAB 30 MG TAB G-TUBE SCH (12:11)
[2018-01-10] MEDS: METOPROLOL TARTRATE 25 MG TAB PEG SCH ×2 (12:11→20:33)
[2018-01-10] MEDS: ESCITALOPRAM OXALATE 10 MG TAB PEG SCH (12:11)
[2018-01-10] MEDS: COLLAGENASE OINT 30 GM TUBE TOPICAL SCH (12:12)
[2018-01-10] MEDS: LACTIC ACID (AMMONIUM LACTATE) 12% LOTION 225 GM BTL TOPICAL SCH ×2 (12:12→20:01)
[2018-01-10] MEDS: LEVOFLOXACIN 750 MG TAB PEG SCH (20:01)
--- NOTE | 2018-01-10 21:53 | HHI.PR ---
Subjective Remarks Patient seen today around discussed with nursing concerns for possible right- sided facial droop. Patient does appear to deny pain, makes eye contact as before. nursing feels that after patient returns from CT, she appeared to be back to recent baseline. Objective Vital Signs Date Time Temp Pulse Resp B/P (MAP) Pulse Ox O2 Delivery O2 Flow Rate FiO2 01/10/18 20:15 98.8 80 18 109/72 (84) 01/10/18 16:00 98.9 80 12 90/60 (70) 96 01/10/18 15:00 99.9 80 20 86/48 (61) 96 01/10/18 14:00 99.2 78 18 90/58 (69) 97 01/10/18 12:30 99.3 100 18 110/78 (89) 95 01/10/18 11:00 99.2 76 12 130/90 (103) 95 01/10/18 09:00 99.0 80 16 120/85 (97) 98 01/10/18 07:15 99.0 78 20 122/60 (80) 98 I/O 01/09/18 01/09/18 01/09/18 01/10/18 01/10/18 01/10/18 07:00 15:00 23:00 07:00 15:00 23:00 Intake Total 300 ml 740 ml 1310 ml Output Total 100 ml 500 ml 625 ml 750 ml Balance 300 ml -100 ml -500 ml 115 ml 560 ml Tube Feeding 240 ml 960 ml Tube Irrigant 300 ml Other 300 ml 200 ml 350 ml Output Urine Total 100 ml 500 ml 625 ml 750 ml # Bowel Movements 2 1 3 Result Diagram: 01/10/18 0655 01/10/18 0655 Procedures No procedures performed Objective Remarks GENERAL: Patient lying in bed. Appears comfortable. Appears to answer no in regards to if she has pain. No other meaningful communication. I cannot appreciate any change on exam. SKIN: Warm and dry. HEAD: Normocephalic. EYES: No scleral icterus. No injection or drainage. NECK: Supple, trachea midline. No JVD. CARDIOVASCULAR: Regular rate and rhythm without murmurs, gallops, or rubs. RESPIRATORY: Breath sounds equal bilaterally. No accessory muscle use. GASTROINTESTINAL: Abdomen soft, non-tender, nondistended. PEG tube in place without leakage. MUSCULOSKELETAL: No cyanosis, or edema. BACK: Nontender without obvious deformity. No CVA tenderness. A/P Assessment and Plan 01/10. Patient seen and examined again. reported right-sided facial droop, however resolved. Reconsult neurology. Repeat CT head with no acute findings. Patient appears to be back to recent baseline. CT appears to show suspected osteomyelitis. ESR in the 40s. Infectious disease following. Continue antibiotics. 01/09. Patient seen and examined. Low-grade fevers. Fecal odor from sacral ulcer. CT abdomen and pelvis pending. Continue antibiotics as per ID. Appreciate infectious disease assistance. Follow-up CT abdomen and pelvis. Hypokalemia replaced. Recheck labs tomorrow. 62-year-old female with history of hemorrhagic stroke and resulting neurocognitive decline. //UTI Ctx growing Enterobacter aerogenes. Patient on Levaquin x 14 days (started 01/03) Infectious disease suspects Cruz related infection Appreciate infectious disease consult Pt remains afebrile //Sacral ulcer Stage IV pressure ulcer Concern for possible tracking and MRI ordered MRI showing bony edema and marrow replacement concerning for osteomyelitis; ID to see patient tomorrow Extends into presacral fat and 3.5 cm coccygeal involvement Wound care following //History of hemorrhagic CVA Continue PT, OT, and ST Poor prognosis. Patient does not participate well with therapy Palliative care following //Dysphagia Due to hemorrhagic stroke Status post PEG placement on 05/09/17 Continue tube feedings //HTN Continue nifedipine 40 mg Q6H, Lisinopril 10 mg BID, Apresoline 50 mg Q6H, Metoprolol 100 mg BID, HCTZ 25 mg Daily Vasotec IV PRN, Clonidine PRN //Hyperglycemia Glucerna for tube feeds Follow blood sugars intermittently //Xeroderma on bilateral feet Lac-Hydrin 12% Lotion continued //Depression Continue Lexapro 10 mg via PEG daily //Nutrition Tube feeds changed to Glucerna 1.5 , bolus feeding with Tyshawn //DVT Prophylaxis SCDs given history of recent intracranial hemorrhage Discharge Planning Very poor prognosis. Patient does not display any meaningful involvement with therapy. Difficult DC. Awaiting placement Kevyn Cheema MD Jan 10, 2018 21:53
--- NOTE | 2018-01-10 23:55 | MB ---
cc: Jonathan Ravi MD, PhD DATE OF CONSULT: REASON FOR CONSULTATION: History of left thalamic hemorrhage with decreased mental status. HISTORY OF PRESENT ILLNESS: Ms. Miranda is a 62-year-old woman who was found to have a left thalamic hemorrhage with interventricular extension back in April, felt to be due to hypertension. She has had chronic aphasia, right sided weakness. Over the past week or so, however, has had decreased responsiveness, more lethargic, not as interactive with more of a facial droop. She also has a history of urinary tract infection. Has been running a low grade fever, likely due to UTI. She has a history of sacral decubitus as well. NEUROLOGIC EXAMINATION: VITAL SIGNS: Blood pressure is 109/72, pulse is 80, respiratory rate is 18, temperature 98 degrees. HIGH CLINICAL FUNCTION: Lethargic but arousable. She is aphasic. She follows simple commands. Cranial nerves: There is a right upper motor neurogenic palsy. Pupils equal and reactive. Motor exam: She has increased tone in the right arm and right leg with weakness, 3/5. She has 4/5 strength on the left. CT of the brain done today reveals atrophy, area of infarction in the left. There is encephalomalacia involving the thalami bilaterally as well. No acute change present. Ventriculomegaly, symmetric in nature. Comparing this with previous CT scan there does seem to be a slight increase in the ventricle size. Hemorrhage has resolved, however. IMPRESSION: History of left thalamic hemorrhage from hypertension with chronic right hemiplegia and aphasia. Reduced mental status recently possibly metabolic encephalopathy from her underlying infectious etiology such as urinary tract infection or decubitus. However, would recommend neurosurgical evaluation for their opinion regarding the mild ventriculomegaly as to whether or not this may be significant. Will also obtain an MRI of the brain for further evaluation. Jonathan Ravi MD, PhD JINA/rt , 10:43 PM , 11:53 PM
[2018-01-11] MEDS: metroNIDAZOLE 500 MG TAB PO SCH ×3 (01:23→16:54)
[2018-01-11 04:58] VITALS: BP 137/91; PULSE 85; RESP 21; TEMP 99; O2SAT 98
[2018-01-11] MEDS: FREE WATER G-TUBE SCH ×3 (06:00→16:54)
[2018-01-11] MEDS: NIFEdipine 20 MG CAP SCH ×3 (06:26→16:54)
[2018-01-11] MEDS: hydrALAZINE HCL 100 MG TAB PEG SCH ×3 (06:27→22:27)
[2018-01-11 07:33] VITALS: BP 118/81; PULSE 115; RESP 14; TEMP 98.7; O2SAT 99
--- NOTE | 2018-01-11 08:27 | PD.WOU.PN ---
Patient Intake Chief Complaint Sacral ulcer Consult Requested by Wound care nurses Reason for Consult Deteriorating sacral ulcer Primary Care Physician Unknown History of Present Illness Consulted by wound care nurses to evaluate patient's sacral pressure injury. Patient has been admitted to the hospital since April of last year with hemorrhagic CVA. Patient is somewhat nonverbal. Patient is a poor historian as she is nonverbal at the time of the encounter so we will obtain history from EMR. Patient has osteomyelitis of her sacrum as well as a 3 mm nonobstructing right renal stone and fibroids. Patient also has a PEG tube in place. Patient resting comfortably in bed. Coded Allergies: No Known Allergies (Unverified , 09/05/16) Preferred Language to Discuss: French Barriers to Learning: Physical, Cognitive/Written, Cognitive/Verbal Vital Signs Date Time Temp Pulse Resp B/P (MAP) Pulse Ox O2 Delivery O2 Flow Rate FiO2 01/11/18 07:33 98.7 115 14 118/81 (93) 99 01/11/18 04:58 99.0 85 21 137/91 (106) 98 01/10/18 23:38 75 18 110/75 (87) 99 01/10/18 20:15 98.8 80 18 109/72 (84) 01/10/18 16:00 98.9 80 12 90/60 (70) 96 01/10/18 15:00 99.9 80 20 86/48 (61) 96 01/10/18 14:00 99.2 78 18 90/58 (69) 97 01/10/18 12:30 99.3 100 18 110/78 (89) 95 01/10/18 11:00 99.2 76 12 130/90 (103) 95 01/10/18 09:00 99.0 80 16 120/85 (97) 98 Pain scale used: FLACC nonverbal scale Pain score: 0 Past, Family & Social History Past Medical History Cardiovascular: REPORTS HX OF: Hypertension Gastrointestinal: REPORTS HX OF: Other GI history Musculoskeletal: REPORTS HX OF: Other musculoskeletal hx (osteomyelitis) Cancer/Hematology: DENIES HX OF: Anemia, Bladder Cancer, Blood cancer, Brain cancer, Breast cancer, Colorectal cancer, Endocrine cancer, Eye cancer, GI cancer, cancer, Kidney cancer, Leukemia, Liver cancer, Lung cancer, Lymphoma , Musculoskeletal cancer, Neurologic cancer, Oral cancer, Skin cancer, Stomach cancer, Thyroid cancer, Other cancer/hematology Cancer - Female: DENIES HX OF: Cervical cancer, Ovarian cancer, Uterine cancer Infectious Disease: DENIES HX OF: AIDS, Chickenpox, Hepatitis, HIV, Measles, MRSA, Mumps, Polio, Positive PPD, Rheumatic fever, Rubella, Syphilis, Tuberculosis, Vanc-resistant enterococc, Other inf disease history Integumentary: DENIES HX OF: Acne, Eczema, Psoriasis, Other integumentary hx Neurologic: REPORTS HX OF: Dementia, Stroke (Hemorrhagic), Other neurologic history Review of Systems Integumentary: COMPLAINS OF: Slow to heal after cuts Neurological: COMPLAINS OF: CVA/Stroke Wound Assessment Bed bound Wound Information - Wound One 01/10/18: Wound dimensions this week are: [id number] with undermining from 7 to 4:00 with maximum depth at 12:00 measuring 3.5 cm. There is still pink tissue with slough and black necrotic tissue with bone exposed. Wound was sharply debrided to deep subcutaneous tissue until a good bleeding base was obtained and wound detritus and wound debris removed. This was then irrigated and then dried. Cement was placed in the wound bed with Maxorb to likely plaque to the wound and covered with border gauze. Patient was also repositioned so that she was offloaded. Wound Location: coccyx Wound Type: Pressure Ulcer Classification: Other (unstageable) Pressure Staging: Necrotic Wound Length: 5cm Wound Width: 3cm Wound Depth: 2.3cm Undermining @ O'clock: 7-4 oclock with max depth at 12 oclock 3.5cm Photo Taken: No Exudate: Moderate Exudate Type: Serosanguineous Debridement: Yes Fibrin Amount: Mild Granulation Tissue Color: None Granulation Tissue Texture: N/A Exposed: Bone Eschar: Yes Odor: No Periwound Appearance: FINDINGS: Erythema Dressings: Dressing Maxorb II Dressing Notes: Santyl border gauze Physical Exam General appearance: chronically ill Nutritional status: normal Skin: FINDINGS: normal color, lesions (See assessment notes) Hair: normal Head: normocephalic/atraumatic Chest appearance: normal Respiratory effort: FINDINGS: normal Auscultation: FINDINGS: normal Percussion: FINDINGS: normal Tactile fremitus: absent Rhythm: regular Heart sounds: NORMAL: S1, S2 Abdomen: FINDINGS: normal appearance, other (peg tube present) Rectal exam deferred: Yes Lab and Radiology Results Radiology Last Impressions Head CT 01/10/18 0000 Signed Impressions: Service Date/Time: Wednesday, January 10, 2018 10:47 - CONCLUSION: Atrophy, chronic small vessel ischemic change, and prior areas of infarction. No acute intracranial abnormality. Phillip Patel Jr., MD Abdomen/Pelvis CT 01/09/18 0000 Signed Impressions: Service Date/Time: Tuesday, January 09, 2018 18:48 - CONCLUSION: 1. There is a sacral decubitus wound/ulcer which extends to the sacrum. Prior MRI demonstrated abnormal sacrum in the inferior aspect of the sacrum and coccyx. There is also presacral edema. These findings are highly suspicious for osteomyelitis. 2. Nonacute findings include 3 mm nonobstructing right renal stone and multi-fibroid uterus. Hu Cuenca MD Sacrum/Coccyx MRI 01/06/18 0000 Signed Impressions: Service Date/Time: Saturday, January 06, 2018 08:30 - CONCLUSION: Large decubitus ulcer posteriorly with not only bony edema and marrow replacement concerning for osteomyelitis but it extends to the presacral fat is well where there is marked enhancement and fluid on the T2-weighted sequences. The coccygeal involvement is at least 3.5 cm in length. Eliud Du MD Chest X-Ray 01/01/18 0000 Signed Impressions: Service Date/Time: Monday, January 01, 2018 20:33 - CONCLUSION: 1. No acute findings. Adi Quarles MD Abdomen X-Ray 12/13/17 0000 Signed Impressions: Service Date/Time: Wednesday, December 13, 2017 14:17 - CONCLUSION: PEG tube in stomach.. Harry Dumas MD FACR Upper Extremity Ultrasound 11/06/17 0000 Signed Impressions: Service Date/Time: Monday, November 06, 2017 14:17 - CONCLUSION: Normal examination. K. Byron Perez MD Pelvis CT 10/13/17 0000 Signed Impressions: Service Date/Time: Friday, October 13, 2017 12:02 - CONCLUSION: 1. Decubitus ulcer with small abscess in the right posterior perineal region measuring 3.1 x 4.6 cm. There is also a small abscess posterior and to the left of the rectum measuring 3.2 x 2.3 cm. Jann Weber MD Neck CTA 04/10/17 0000 Signed Impressions: Service Date/Time: Monday, April 10, 2017 22:28 - CONCLUSION: The internal carotid arteries are normal bilaterally. No significant atherosclerotic disease is noted. Eliud Du MD Head CTA 04/10/17 Signed Impressions: Service Date/Time: Monday, April 10, 2017 22:50 - CONCLUSION: Mild dilatation of the basilar tip without discrete aneurysm. Some narrowing of the left middle cerebral branch after the bifurcation. Prominent left thalamic hemorrhage. Eliud Du MD Assessment/Plan Problem List: (1) Decubitus ulcer of coccygeal region, unstageable Status: Chronic Plan: There is still pink tissue with slough and black necrotic tissue with bone exposed. Wound was sharply debrided to deep subcutaneous tissue until a good bleeding base was obtained and wound detritus and wound debris removed. This was then irrigated and then dried. Cement was placed in the wound bed with Maxorb to likely plaque to the wound and covered with border gauze. Patient was also repositioned so that she was offloaded. (2) Hemorrhagic cerebrovascular accident (CVA) Status: Chronic Plan: Patient with a sequela of neurocognitive dysfunction and dementia. Neurosurgery on board. (3) Osteomyelitis Status: Chronic Plan: Currently on antibiotics. ID following. (4) Dementia Status: Chronic Plan: Sequela of hemorrhagic stroke. Patient chronic but stable at this time. Neurosurgery following. Problem Qualifiers (1) Osteomyelitis: Micaela Morales MD Jan 11, 2018 08:27
[2018-01-11] MEDS ORDERED: GADODIAMIDE PF 287 MG/ML 10 ML VIAL (for RAD MRI) IVCONTRAST ONE (09:11)
--- NOTE | 2018-01-11 09:48 | RADRPT ---
EXAM DATE/TIME: 01/11/2018 08:45 [facility] COMPARISON: CT BRAIN W/O CONTRAST, January 10, 2018, 10:47. INDICATIONS : Increasing right facial droop. CONTRAST: 10 cc Omniscan (gadodiamide) IV MEDICAL HISTORY : Hypertension. SURGICAL HISTORY : peg tube ENCOUNTER: Subsequent ACUITY: 4-6 days PAIN SCORE: 0/10 LOCATION: cranial TECHNIQUE: Multiplanar, multisequence MRI of the brain was performed both prior to and following the administrat ion of paramagnetic contrast. FINDINGS: CEREBRUM: The ventricles are normal for age. Diffuse bilateral cortical atrophy. No evidence of midline shift, mass lesion. There appears to be a focal area of acute to subacute infarction involving the left thal amus directly adjacent to the posterior left lateral ventricle.. There is also some subacute hemorrha ge noted in this location on the GRE images. The GRE images also demonstrate punctate areas of hemorr mark involving the deep right mid parietal lobe, posterior right occipital lobe and tiny punctate hem orrhages in the basal ganglia bilaterally, left greater than right. There is prominent chronic white matter changes bilaterally. No extraaxial fluid collections are seen. The pituitary gland and supras ellar cistern are normal in configuration. WHITE MATTER: There is diffuse chronic white matter changes bilaterally. This is characteristic of ischemic demyeli nization. POSTERIOR FOSSA: The cerebellum and brainstem are intact. There are chronic changes in the midbrain. The 4th ventricl e is midline. The cerebellopontine angle is unremarkable. The cerebellar tonsils are normal in posit ion. DIFFUSION IMAGING: There is restricted diffusion in the left thalamus characteristic of an acute to subacute infarct. EXTRACRANIAL: The visualized portions of the orbits and paranasal sinuses are unremarkable. POST-CONTRAST: No abnormal areas of parenchymal or dural enhancement. No evidence of blood-brain barrier breakdown. CONCLUSION: 1. Focal area of restricted diffusion in the left thalmus characteristic of an acute to subacute infa rct. 2. GRE images demonstrate subacute hemorrhage associated with the infarct in the left thalamus. 3. GRE images also demonstrate punctate areas of microhemorrhage noted in the deep right mid parietal lobe, right occipital lobe and bilateral basal ganglia regions, left greater than right. 4. Diffuse bilateral cortical atrophy and chronic white matter changes. Luciano Morales MD on January 11, 2018 at 9:38 Board Certified Radiologist. This report was verified electronically.
--- NOTE | 2018-01-11 10:23 | PD.WCN.NOT ---
Wound Consult Description: Follow up for sacral pressure injury Communicated with: Gloria RAINES 4th floor Recommendation: Please refer to wound care orders Additional Information: Patient was seen today on 4th floor residential care unit by play writerRomelia RNWCC and . Patient alert in bed nonverbal.Patient required 2 person assist to reposition patient Right side.Dressing removed from coccyx to reveal improved unstageable pressure injury measuring 5.0cm x 3.0cm x 2.3cm with undermining from 7-4 O'clock with max depth @ 12 O'clock measuring 3.5cm.Wound base is ~50% dull pink tissue ~30% yellow slough ~10% black necrotic tissue ~10 % bone . performed sharps debridement.Wound cleansed with normal saline Santyl 2mm thick to wound base and Maxsorb ll lightly packed in wound covered with boarder gauze.Patient was repositioned to left side for offloading. Yon Caruso [facility] Jan 11, 2018 10:23
[2018-01-11 10:30] VITALS: BP 132/89; TEMP 99.2
[2018-01-11] MEDS: ESCITALOPRAM OXALATE 10 MG TAB PEG SCH (10:36)
[2018-01-11] MEDS: LANSOPRAZOLE SOLUTAB 30 MG TAB G-TUBE SCH (10:37)
[2018-01-11] MEDS: METOPROLOL TARTRATE 25 MG TAB PEG SCH ×2 (10:37→22:26)
[2018-01-11] MEDS: HYDROCHLOROTHIAZIDE 25 MG TAB PO SCH (10:53)
--- NOTE | 2018-01-11 13:45 | HHI.PR ---
Subjective Remarks Patient no complaints, no overnight events. MRI reported. Patient's mental status about the same since I last saw her, follow some commands. No complaints. Objective Vitals Vital Signs Date Time Temp Pulse Resp B/P (MAP) Pulse Ox O2 Delivery O2 Flow Rate FiO2 01/11/18 10:30 99.2 132/89 (103) 01/11/18 07:33 98.7 115 14 118/81 (93) 99 01/11/18 04:58 99.0 85 21 137/91 (106) 98 01/10/18 23:38 75 18 110/75 (87) 99 01/10/18 20:15 98.8 80 18 109/72 (84) 01/10/18 16:00 98.9 80 12 90/60 (70) 96 01/10/18 15:00 99.9 80 20 86/48 (61) 96 01/10/18 14:00 99.2 78 18 90/58 (69) 97 I/O 01/10/18 01/10/18 01/10/18 01/11/18 01/11/18 01/11/18 07:00 15:00 23:00 07:00 15:00 23:00 Intake Total 740 ml 1310 ml 740 ml Output Total 625 ml 750 ml 700 ml Balance 115 ml 560 ml 40 ml Tube Feeding 240 ml 960 ml 240 ml Tube Irrigant 300 ml Other 200 ml 350 ml 500 ml Output Urine Total 625 ml 750 ml 700 ml # Bowel Movements 1 3 1 Result Diagram: 01/10/18 0655 01/10/18 0655 Objective Remarks GENERAL: Patient lying in bed, appears comfortable. Nods yes/no to questions. EYES: No scleral icterus. No injection or drainage. NECK: Supple, trachea midline. No JVD. CARDIOVASCULAR: Regular rate and rhythm without murmurs, gallops, or rubs. RESPIRATORY: Breath sounds equal bilaterally. No accessory muscle use. GASTROINTESTINAL: Abdomen soft, non-tender, nondistended. Cruz catheter with clear yellow urine. MUSCULOSKELETAL: No cyanosis, or edema. Awake, aphasic. Follows some commands, good handgrip, close her eyes on command. Positive for right facial droop. Increased tone on the right arm and right leg, 3/5, 4/5 on the left. Procedures Peg Tube placed 05/08/17 (Dr. De Los Santos) Date of Insertion: Nov 08, 2017 A/P Problem List: (1) Major neurocognitive disorder ICD Code: F03.90 - Unspecified dementia without behavioral disturbance (2) Hemiparesis ICD Code: G81.90 - Hemiplegia, unspecified affecting unspecified side Status: Acute (3) Intracranial hemorrhage ICD Code: I62.9 - Nontraumatic intracranial hemorrhage, unspecified Status: Chronic (4) Aphasia ICD Code: R47.01 - Aphasia Assessment and Plan Status post hemorrhagic CVA, new acute and subacute stroke with chronic right hemiplegia and aphasia. Continue PT, OT, and ST -New acute and subacute stroke, neurology reconsulted. CT scan of the brain showed atrophy, area of infarction in the left thalamus. MRI done, positive for left thalamic hemorrhage and other multiple areas of hemorrhage in the deep parietal region. Likely from hypertension, consult neurosurgery per neurology. UTI Ctx growing Enterobacter aerogenes. Patient on Levaquin x 14 days (started 01/03) Infectious disease suspects Cruz related infection Dysphagia Related to intracranial bleed history Status post PEG placement on 05/09/17 Continue tube feeding as below. Hypertension emergency Follow blood pressures. [place] controlled, decrease Catapres patch to 0.2 mg daily. Continue the following blood pressure meds: Nifedipine 40 mg every 6 hours Lisinopril 10 mg twice daily Apresoline 50 mg every 6 hours Catapres TTS 3 patch Metoprolol 100 mg twice daily HCTZ 25 mg daily Apresoline, clonidine, Vasotec as needed Hyperglycemia Glucerna for tube feeds Follow blood sugars intermittently Xeroderma on bilateral feet Lac-Hydrin 12% Lotion continued. Depression-continue Lexapro Coccyx stage IV pressure ulcer-wound care following. MRI did not show any tracking, showed bone edema and marrow replacement concerning for osteomyelitis , infectious disease following. Wound care following, continue Levaquin, Flagyl added. Will discuss with infectious disease regarding plastic surgery consultation DVT Prophylaxis: SCDs given history of recent intracranial hemorrhage Discharge Planning Patient was homeless prior to admit Poor access for inpatient rehabilitation Family desires aggressive measures for therapy and placement Independent funding unavailable for placement Long-term prognosis is poor No significant capacity for regaining full functionality Palliative care following Very poor prognosis. Patient does not display any meaningful involvement with therapy. Difficult DC. Awaiting placement Nolvia Salomon MD Jan 11, 2018 13:45
--- NOTE | 2018-01-11 15:04 | HHI.IDPN ---
Subjective Subjective Remarks ID RECONSULT Gen. originally seen by infectious disease the first week of October for evaluation of fever . [place] found [place] the park with altered mental status and R weakness, found to be suffering from large left parenchymal hemorrhage was intraventricular extension on initial CT scan, now with prolonged hospital course without much improvement in mentation . Patient has had a h/o UTI and now has a sacral decubitus ulcer. Last 3 days patient has been having fevers. Started on Zosyn and now IV Vancomycin- with continued fevers so ID has been consulted. Still running fever. She had debridement of her sacral decubitus. Culture grew Pseudomonas. Patient completed a four-week course of IV antibiotic. She was initially on Zosyn, but developed a rash, and completed the course of treatment with IV cefepime. Patient since has been stable from ID standpoint up until about 3-4 days ago when she started having fevers. There was a urine culture from December to that had Enterobacter. I'm not sure if she received any treatment for that. Repeat urine culture from December 25 has Escherichia coli and Enterobacter. New cultures done 2 blood culture and urine culture that are still pending. Patient has a Helms catheter in place, last change December 09. ID reconsultation has been requested to evaluate the fever. She is currently on IV Levaquin Notes reviewed Temps 99+ Wound care saw patient and had debridement of her sacral decubitus Had neuro evaluation for some change in neuro status Brain MRI report noted Antibiotics Current Medications Levaquin Flagyl Medications (Trade) Dose Ordered Sig/Reymundo Route Start Time Stop Time Status Last Admin (Dulcolax Supp) 10 mg DAILY PRN RECTAL 04/10/17 22:00 (Lac-Hydrin 12% Lotion) 1 applic BID TOPICAL 05/04/17 14:00 01/10/18 20:01 (Prevacid Odt) 30 mg DAILY G-TUBE 05/10/17 09:00 01/11/18 10:37 (Apresoline) 25 mg Q4HR PRN PEG 05/18/17 14:45 11/04/17 14:28 (Zofran Liq) 4 mg Q6H PRN PEG 05/26/17 10:00 (Tylenol) 650 mg Q6H PRN PEG 06/16/17 16:00 Future Hold 10/17/17 19:29 (Senna Liq) 8.8 mg DAILY PEG 8/24/17 09:00 Future Hold 10/17/17 10:02 (Hydrodiuril) 25 mg DAILY PO 09/27/17 09:15 Future hold 01/11/18 10:53 (Pill Splitter) 1 ea UNSCH PRN OTHER 10/17/17 17:45 12/08/17 20:45 (Free Water) 150 ml Q6HR G-TUBE 10/19/17 12:00 01/11/18 12:00 (NS Flush) 2 ml UNSCH PRN IV FLUSH 11/17/17 10:15 01/04/18 08:21 (Lopressor) 25 mg BID PEG 11/24/17 21:00 01/11/18 10:37 (Apresoline) 50 mg Q8HR PEG 12/12/17 22:00 01/11/18 06:27 (Miralax) 17 gm DAILY PRN PO 12/16/17 18:00 (Percocet 5-325 Mg) 1 tab Q6H PRN PO 12/22/17 15:00 01/06/18 14:12 (Percocet 10-325 Mg) 1 tab Q6H PRN PO 12/22/17 15:00 01/06/18 08:22 (Santyl Oint) 1 applic DAILY TOPICAL 12/25/17 17:00 01/10/18 12:12 (Procardia) 40 mg Q6HR .XX 12/27/17 12:00 01/11/18 10:37 (Lexapro) 10 mg DAILY PEG 01/02/18 17:15 01/11/18 10:36 (Levaquin) 750 mg Q24H PEG 01/03/18 20:00 01/16/18 19:59 01/10/18 20:01 (Flagyl) 500 mg Q8H PO 01/09/18 10:00 01/11/18 10:37 Lines Peripheral IV line Past Medical History Intracranial Hemorrhage Allergies: Coded Allergies: No Known Allergies (Unverified , 09/05/16) Objective . Vital Signs Date Time Temp Pulse Resp B/P (MAP) Pulse Ox O2 Delivery O2 Flow Rate FiO2 01/11/18 10:30 99.2 132/89 (103) 01/11/18 07:33 98.7 115 14 118/81 (93) 99 01/11/18 04:58 99.0 85 21 137/91 (106) 98 01/10/18 23:38 75 18 110/75 (87) 99 01/10/18 20:15 98.8 80 18 109/72 (84) 01/10/18 16:00 98.9 80 12 90/60 (70) 96 . Laboratory Tests Test 01/10/18 06:55 01/10/18 12:59 White Blood Count 6.9 TH/MM3 Red Blood Count 3.98 MIL/MM3 Hemoglobin 10.6 GM/DL Hematocrit 32.7 % Mean Corpuscular Volume 82.1 FL Mean Corpuscular Hemoglobin 26.5 PG Mean Corpuscular Hemoglobin Concent 32.3 % Red Cell Distribution Width 15.6 % Platelet Count 408 TH/MM3 Mean Platelet Volume 8.2 FL Neutrophils (%) (Auto) 63.3 % Lymphocytes (%) (Auto) 19.3 % Monocytes (%) (Auto) 12.9 % Eosinophils (%) (Auto) 3.6 % Basophils (%) (Auto) 0.9 % Neutrophils # (Auto) 4.4 TH/MM3 Lymphocytes # (Auto) 1.3 TH/MM3 Monocytes # (Auto) 0.9 TH/MM3 Eosinophils # (Auto) 0.2 TH/MM3 Basophils # (Auto) 0.1 TH/MM3 CBC Comment DIFF FINAL Differential Comment Erythrocyte Sedimentation Rate 48 mm/hr Laboratory Tests Test 01/10/18 06:55 Blood Urea Nitrogen 11 MG/DL Creatinine 0.34 MG/DL Random Glucose 90 MG/DL Albumin 2.8 GM/DL Calcium Level 9.0 MG/DL Phosphorus Level 2.5 MG/DL Magnesium Level 2.2 MG/DL Sodium Level 139 MEQ/L Potassium Level 3.9 MEQ/L Chloride Level 104 MEQ/L Carbon Dioxide Level 29.1 MEQ/L Anion Gap 6 MEQ/L Estimat Glomerular Filtration Rate 235 ML/MIN Imaging RADIOLOGY STUDIES/FILMS REVIEWED Sacrum/Coccyx MRI 01/06/18 0000 Signed Impressions: Service Date/Time: Saturday, January 06, 2018 08:30 - CONCLUSION: Large decubitus ulcer posteriorly with not only bony edema and marrow replacement concerning for osteomyelitis but it extends to the presacral fat is well where there is marked enhancement and fluid on the T2-weighted sequences. The coccygeal involvement is at least 3.5 cm in length. Eliud uD MD Chest X-Ray 01/01/18 0000 Signed Impressions: Service Date/Time: Monday, January 01, 2018 20:33 - CONCLUSION: 1. No acute findings. Adi Quarles MD Abdomen X-Ray 12/13/17 0000 Signed Impressions: Service Date/Time: Wednesday, December 13, 2017 14:17 - CONCLUSION: PEG tube in stomach.. Harry Dumas MD FACR Upper Extremity Ultrasound 11/06/17 0000 Signed Impressions: Service Date/Time: Monday, November 06, 2017 14:17 - CONCLUSION: Normal examination. Kelby Perez MD Pelvis CT 10/13/17 0000 Signed Impressions: Service Date/Time: Friday, October 13, 2017 12:02 - CONCLUSION: 1. Decubitus ulcer with small abscess in the right posterior perineal region measuring 3.1 x 4.6 cm. There is also a small abscess posterior and to the left of the rectum measuring 3.2 x 2.3 cm. Jann Weber MD Head CT 04/25/17 0000 Signed Impressions: Service Date/Time: Tuesday, April 25, 2017 18:02 - CONCLUSION: 1. Evolving left thalamic hematoma. No new hemorrhage. Adi Quarles MD Neck CTA 04/10/17 0000 Signed Impressions: Service Date/Time: Monday, April 10, 2017 22:28 - CONCLUSION: The internal carotid arteries are normal bilaterally. No significant atherosclerotic disease is noted. Eliud Du MD Head CTA 04/10/17 0000 Signed Impressions: Service Date/Time: Monday, April 10, 2017 22:50 - CONCLUSION: Mild dilatation of the basilar tip without discrete aneurysm. Some narrowing of the left middle cerebral branch after the bifurcation. Prominent left thalamic hemorrhage. Eliud Du MD Chest X-Ray 01/01/18 0000 Signed Impressions: Service Date/Time: Monday, January 01, 2018 20:33 - CONCLUSION: 1. No acute findings. Adi Quarles MD Physical Exam GENERAL: awake, follows some commands. Not in any distress. SKIN: Warm and dry, no generalized rash, no ecchymoses HEAD: Atraumatic. Normocephalic. No temporal or scalp tenderness. EYES: Extraocular motions intact. No scleral icterus. No injection or drainage. EARS, NOSE AND THROAT: Moist mucosa, come white coating on her tongue, did not completely open mouth for full exam. No nasl discharde NECK: Trachea midline. No JVD or lymphadenopathy. Supple, nontender, no meningeal signs. CARDIOVASCULAR: Regular rate and rhythm . Soft systolic murmur at LSB. RESPIRATORY: Clear to auscultation. Breath sounds equal bilaterally. No wheezes , rales, or rhonchi. GASTROINTESTINAL: Abdomen soft, non-tender, nondistended. No hepato-splenomegaly , or palpable masses. No guarding. Peg tube site ok MUSCULOSKELETAL: Extremities with wasting. NO edema. Both feet plantar flexed BACK: Dressing in place in decubitus, with stool, (+) odor NEUROLOGICAL: Awake and alert. Patient with hemiplegia LINE: PIV no evidence of infection : Helms in place, urine looks clear Assessment & Plan Remarks IMPRESSION New fever likely due to helms associated, better - helms changed monthly Sacral decubitus worsening, has findings of osteo on MRI S/P Rx infected sacral decubitus, PSAE S/P Rx previous UTI ICH RECOMMENDATION Continue Levaquin Continue Flagyl Wound care Monitor progress Follow temps Monitor wounds - had debridement at bedside Kaylyn Gilliland MD Jan 11, 2018 15:04
[2018-01-11 16:00] VITALS: BP 129/86; PULSE 95; RESP 16; TEMP 98.3; O2SAT 99
[2018-01-11] MEDS: LACTIC ACID (AMMONIUM LACTATE) 12% LOTION 225 GM BTL TOPICAL SCH ×2 (16:55→22:27)
[2018-01-11] MEDS: COLLAGENASE OINT 30 GM TUBE TOPICAL SCH (16:55)
[2018-01-11 20:00] VITALS: BP 115/80; PULSE 110; RESP 20; TEMP 98.1; O2SAT 99
[2018-01-11] MEDS: LEVOFLOXACIN 750 MG TAB PEG SCH (20:00)
--- NOTE | 2018-01-11 23:55 | PD.CONS ---
History of Present Illness Service Neurosurgery Consult Requested By Neurology-Dr. Ravi Reason for Consult Left thalamic intracranial hemorrhage Primary Care Physician Diagnoses: History of Present Illness CC 2-year-old female previously seen by the undersigned in April 2017 following large left thalamic intracranial hemorrhage. She has been in long-term care portion of the hospital without significant overall improvement in her mentation. According to the patient's nurse, she was noted to have a left facial droop and possibly diminished speech yesterday. A CT scan of the brain was accomplished and neurology consultation obtained. The patient has improved facial movement today according to her nurse although she does not seem to be speaking quite as well as she did prior to yesterday's event. No definite seizure activity reported. Review of Systems ROS Limitations: Altered Mental Status Past Family Social History Allergies: Coded Allergies: No Known Allergies (Unverified , 09/05/16) Past Medical History Hypertension Admitted 04/10/2017 with hypertensive left basal ganglia hemorrhage, right hemiparesis, required prolonged intensive care unit care, intubation, ventilatory support. Past Surgical History No known major surgical procedures Reported Medications Reported Meds & Active Scripts Active Lisinopril 10 Mg Tab 10 Mg PO DAILY Active Prescriptions or Reported Medications Unobtainable Family History Unable to obtain Social History Unable to obtain from patient. Physical Exam Vital Signs Vital Signs Date Time Temp Pulse Resp B/P (MAP) Pulse Ox O2 Delivery O2 Flow Rate FiO2 01/11/18 16:00 98.3 95 16 129/86 (100) 99 01/11/18 10:30 99.2 132/89 (103) 01/11/18 07:33 98.7 115 14 118/81 (93) 99 01/11/18 04:58 99.0 85 21 137/91 (106) 98 Physical Exam GENERAL: This is a well-nourished, well-developed patient, in no apparent distress. SKIN: No rashes, ecchymoses or lesions. Cool and dry. HEAD: Atraumatic. Normocephalic. No temporal or scalp tenderness. EYES: Sclerae are clear and nonicteric ENT: No facial edema NECK: Trachea midline. No obvious tenderness CARDIOVASCULAR: Regular rate RESPIRATORY: Clear and nonlabored GASTROINTESTINAL: Abdomen soft, non-tender, no guarding. MUSCULOSKELETAL: Mild increased flexor tone right lower extremity, increased quadriceps tone and knee extension left lower extremity NEUROLOGICAL: Awake and relatively alert Nonverbal Tracks with conjugate gaze to the right and left to voice Appears to mildly grasp hands and lift right leg slightly to command. She does not cooperate well with facial motor testing or other cranial nerve testing. Laboratory Date/Time Source Procedure Growth Status 01/01/18 20:28 Blood Peripheral Aerobic Blood Culture - Final NO GROWTH IN 5 DAYS Complete 01/01/18 20:28 Blood Peripheral Anaerobic Blood Culture - Final NO GROWTH IN 5 DAYS Complete 10/14/17 13:30 Nasal Aspirate Influenza Types A,B Antigen ([place]) - Final NEGATIVE FOR FLU A AND B ANTIGEN.... Complete 01/01/18 20:36 Urine Clean Catch Urine Culture - Final Enterobacter Aerogenes Complete 12/25/17 16:30 Wound Other Gram Stain - Final Complete 12/25/17 16:30 Wound Culture - Final Enterobacter Aerogenes Escherichia Coli Complete Result Diagram: 01/10/18 0655 01/10/18 0655 Imaging 01/11/2018 MRI brain and 01/10/2018 CT scan head images reviewed. Agree with findings as noted below: Brain MRI 01/11/18 0000 Signed Impressions: Service Date/Time: January 08:45 - CONCLUSION: 1. Focal area of restricted diffusion in the left thalmus characteristic of an acute to subacute infarct. 2. GRE images demonstrate subacute hemorrhage associated with the infarct in the left thalamus. 3. GRE images also demonstrate punctate areas of microhemorrhage noted in the deep right mid parietal lobe, right occipital lobe and bilateral basal ganglia regions, left greater than right. 4. Diffuse bilateral cortical atrophy and chronic white matter changes. Luciano Morales MD Head CT 01/10/18 0000 Signed Impressions: Service Date/Time: Wednesday, January 10, 2018 10:47 - CONCLUSION: Atrophy, chronic small vessel ischemic change, and prior areas of infarction. No acute intracranial abnormality. Phillip Patel Jr., MD Abdomen/Pelvis CT 01/09/18 0000 Signed Impressions: Service Date/Time: Tuesday, January 09, 2018 18:48 - CONCLUSION: 1. There is a sacral decubitus wound/ulcer which extends to the sacrum. Prior MRI demonstrated abnormal sacrum in the inferior aspect of the sacrum and coccyx. There is also presacral edema. These findings are highly suspicious for osteomyelitis. 2. Nonacute findings include 3 mm nonobstructing right renal stone and multi-fibroid uterus. Hu Cuenca MD Sacrum/Coccyx MRI 01/06/18 0000 Signed Impressions: Service Date/Time: Saturday, January 06, 2018 08:30 - CONCLUSION: Large decubitus ulcer posteriorly with not only bony edema and marrow replacement concerning for osteomyelitis but it extends to the presacral fat is well where there is marked enhancement and fluid on the T2-weighted sequences. The coccygeal involvement is at least 3.5 cm in length. Eliud Du MD Chest X-Ray 01/01/18 0000 Signed Impressions: Service Date/Time: Monday, January 01, 2018 20:33 - CONCLUSION: 1. No acute findings. Adi Quarles MD Abdomen X-Ray 12/13/17 0000 Signed Impressions: Service Date/Time: Wednesday, December 13, 2017 14:17 - CONCLUSION: PEG tube in stomach.. Harry Dumas MD FACR Upper Extremity Ultrasound 11/06/17 0000 Signed Impressions: Service Date/Time: Monday, November 06, 2017 14:17 - CONCLUSION: Normal examination. KLanre Perez MD Pelvis CT 10/13/17 0000 Signed Impressions: Service Date/Time: Friday, October 13, 2017 12:02 - CONCLUSION: 1. Decubitus ulcer with small abscess in the right posterior perineal region measuring 3.1 x 4.6 cm. There is also a small abscess posterior and to the left of the rectum measuring 3.2 x 2.3 cm. Jann Weber MD Neck CTA 04/10/17 0000 Signed Impressions: Service Date/Time: Monday, April 10, 2017 22:28 - CONCLUSION: The internal carotid arteries are normal bilaterally. No significant atherosclerotic disease is noted. Eliud Du MD Head CTA 04/10/17 0000 Signed Impressions: Service Date/Time: Monday, April 10, 2017 22:50 - CONCLUSION: Mild dilatation of the basilar tip without discrete aneurysm. Some narrowing of the left middle cerebral branch after the bifurcation. Prominent left thalamic hemorrhage. Eliud Du MD Assessment and Plan Assessment and Plan Impression: Acute to subacute left thalamic infarct with mild hemorrhagic component in patient with previous history of relatively large left basal ganglia hemorrhagic CVA. Mild hydrocephalus Recommendations: The mild hydrocephalus noted on MRI is not felt to be a significant factor in her overall mental status changes. No neurosurgical intervention indicated at this point. Risk of further expansion of the current hemorrhages very unlikely. No evidence of progressive hydrocephalus. She should be stable for chemical DVT prophylaxis Javi Wang MD Jan 11, 2018 23:55
[2018-01-12] MEDS: NIFEdipine 20 MG CAP SCH ×5 (01:18→23:55)
[2018-01-12] MEDS: metroNIDAZOLE 500 MG TAB PO SCH ×3 (01:19→17:57)
[2018-01-12] MEDS: hydrALAZINE HCL 100 MG TAB PEG SCH ×3 (04:57→22:12)
[2018-01-12] MEDS: FREE WATER G-TUBE SCH ×5 (04:57→23:55)
[2018-01-12 07:15] VITALS: BP 128/78; PULSE 88; RESP 20; TEMP 98.9; O2SAT 98
[2018-01-12] MEDS: ESCITALOPRAM OXALATE 10 MG TAB PEG SCH (09:02)
[2018-01-12] MEDS: METOPROLOL TARTRATE 25 MG TAB PEG SCH ×2 (09:02→20:49)
[2018-01-12] MEDS: LANSOPRAZOLE SOLUTAB 30 MG TAB G-TUBE SCH (09:02)
[2018-01-12] MEDS: HYDROCHLOROTHIAZIDE 25 MG TAB PO SCH (09:02)
[2018-01-12] MEDS: oxyCODONE/ACETAMINOPHEN 5 MG/325 MG TAB PO PRN ×2 (09:03→17:56)
[2018-01-12] MEDS: COLLAGENASE OINT 30 GM TUBE TOPICAL SCH (09:03)
[2018-01-12] MEDS: LACTIC ACID (AMMONIUM LACTATE) 12% LOTION 225 GM BTL TOPICAL SCH ×2 (09:03→20:51)
--- NOTE | 2018-01-12 13:09 | HHI.PR ---
Subjective Remarks No overnight events, no change in mental status. Still with right-sided facial droop. Status post debridement. Discussed with nursing. Objective Vitals Vital Signs Date Time Temp Pulse Resp B/P (MAP) Pulse Ox O2 Delivery O2 Flow Rate FiO2 01/12/18 07:15 98.9 88 20 128/78 (95) 98 01/11/18 20:00 98.1 110 20 115/80 (92) 99 01/11/18 16:00 98.3 95 16 129/86 (100) 99 I/O 01/11/18 01/11/18 01/11/18 01/12/18 01/12/18 01/12/18 07:00 15:00 23:00 07:00 15:00 23:00 Intake Total 740 ml 780 ml 540 ml Output Total 700 ml 12 ml 650 ml Balance 40 ml 768 ml -110 ml Tube Feeding 240 ml 480 ml 240 ml Other 500 ml 300 ml 300 ml Output Urine Total 700 ml 12 ml 650 ml # Bowel Movements 1 1 1 Result Diagram: 01/10/18 0655 01/10/18 0655 Objective Remarks GENERAL: Patient lying in bed, appears comfortable. Nods yes/no to questions. EYES: No scleral icterus. No injection or drainage. NECK: Supple, trachea midline. No JVD. CARDIOVASCULAR: Regular rate and rhythm without murmurs, gallops, or rubs. RESPIRATORY: Breath sounds equal bilaterally. No accessory muscle use. GASTROINTESTINAL: Abdomen soft, non-tender, nondistended. Cruz catheter with clear yellow urine. MUSCULOSKELETAL: No cyanosis, or edema. Awake, aphasic. Follows some commands, good handgrip, close her eyes on command. Positive for right facial droop. Increased tone on the right arm and right leg, 3/5, 4/5 on the left. Procedures Peg Tube placed 05/08/17 (Dr. De Los Santos) Date of Insertion: Nov 08, 2017 A/P Problem List: (1) Major neurocognitive disorder ICD Code: F03.90 - Unspecified dementia without behavioral disturbance (2) Hemiparesis ICD Code: G81.90 - Hemiplegia, unspecified affecting unspecified side Status: Acute (3) Intracranial hemorrhage ICD Code: I62.9 - Nontraumatic intracranial hemorrhage, unspecified Status: Chronic (4) Aphasia ICD Code: R47.01 - Aphasia Assessment and Plan Status post hemorrhagic CVA, new acute and subacute stroke with chronic right hemiplegia and aphasia. Continue PT, OT, and ST -New acute and subacute stroke, neurology reconsulted. CT scan of the brain showed atrophy, area of infarction in the left thalamus. MRI done, positive for left thalamic hemorrhage and other multiple areas of hemorrhage in the deep parietal region. Likely from hypertension, neurosurgery saw the patient 2017,nonsurgical management, agreed with pharmacological DVT prophylaxis, will stop SCDs and start low-dose heparin tomorrow. UTI Ctx growing Enterobacter aerogenes. Patient on Levaquin x 14 days (started 01/03) Infectious disease suspects Cruz related infection Dysphagia Related to intracranial bleed history Status post PEG placement on 05/09/17 Continue tube feeding as below. Hypertension emergency Follow blood pressures. Martell controlled, decrease Catapres patch to 0.2 mg daily. Continue the following blood pressure meds: Nifedipine 40 mg every 6 hours Lisinopril 10 mg twice daily Apresoline 50 mg every 6 hours Catapres TTS 3 patch Metoprolol 100 mg twice daily HCTZ 25 mg daily Apresoline, clonidine, Vasotec as needed Hyperglycemia Glucerna for tube feeds Follow blood sugars intermittently Xeroderma on bilateral feet Lac-Hydrin 12% Lotion continued. Depression-continue Lexapro Coccyx stage IV pressure ulcer-wound care following. MRI did not show any tracking, showed bone edema and marrow replacement concerning for osteomyelitis , infectious disease following. Wound care following, continue Levaquin, Flagyl , plastic surgery consulted, awaiting input. Status post repeat bedside debridement by wound care on 01/11/2018. Antibiotic related diarrhea-still has loose stools, could be from antibiotics, lactobacillus for now, monitor. DVT Prophylaxis: Patient removing SCDs, per neurosurgery note on 01/11/2018, okay for pharmacological DVT prophylaxis. Discharge Planning Patient was homeless prior to admit Poor access for inpatient rehabilitation Family desires aggressive measures for therapy and placement Independent funding unavailable for placement Long-term prognosis is poor No significant capacity for regaining full functionality Palliative care following Very poor prognosis. Patient does not display any meaningful involvement with therapy. Difficult DC. Awaiting placement Nolvia Salomon MD Jan 12, 2018 13:09
[2018-01-12] MEDS: LACTOBACILLUS ACIDOPHILUS 1 GM PACKET PO SCH (17:57)
--- NOTE | 2018-01-12 18:15 | HHI.NSPN ---
(Tavo Mujica) History Interval History 01/11: 62-year-old female previously seen by Dr Wang in April 2017 following large left thalamic intracranial hemorrhage. She has been in long-term care portion of the hospital without significant overall improvement in her mentation. According to the patient's nurse, she was noted to have a left facial droop and possibly diminished speech yesterday. A CT scan of the brain was accomplished and neurology consultation obtained. The patient has improved facial movement today according to her nurse although she does not seem to be speaking quite as well as she did prior to yesterday's event. No definite seizure activity reported. 01/12: (Tavo Mujica) Exam Results 01/11/18 01/11/18 01/12/18 01/12/18 01/13/18 01/13/18 05:59 17:59 05:59 17:59 05:59 17:59 Intake Total 1310 ml 740 ml 780 ml 540 ml Output Total 750 ml 700 ml 12 ml 650 ml Balance 560 ml 40 ml 768 ml -110 ml Tube Feeding 960 ml 240 ml 480 ml 240 ml Other 350 ml 500 ml 300 ml 300 ml Output Urine Total 750 ml 700 ml 12 ml 650 ml # Bowel Movements 3 1 1 1 Vital Signs Date Time Temp Pulse Resp B/P (MAP) Pulse Ox O2 Delivery O2 Flow Rate FiO2 01/12/18 10:00 20 01/12/18 07:15 98.9 88 20 128/78 (95) 98 01/11/18 20:00 98.1 110 20 115/80 (92) 99 01/11/18 16:00 98.3 95 16 129/86 (100) 99 01/11/18 10:30 99.2 132/89 (103) 01/11/18 07:33 98.7 115 14 118/81 (93) 99 01/11/18 04:58 99.0 85 21 137/91 (106) 98 01/10/18 23:38 75 18 110/75 (87) 99 01/10/18 20:15 98.8 80 18 109/72 (84) 01/10/18 16:00 98.9 80 12 90/60 (70) 96 01/10/18 15:00 99.9 80 20 86/48 (61) 96 01/10/18 14:00 99.2 78 18 90/58 (69) 97 01/10/18 12:30 99.3 100 18 110/78 (89) 95 01/10/18 11:00 99.2 76 12 130/90 (103) 95 01/10/18 09:00 99.0 80 16 120/85 (97) 98 01/10/18 07:15 99.0 78 20 122/60 (80) 98 01/09/18 20:00 98.0 83 18 130/89 (103) 97 (Tavo Mujica) Physical Examination GENERAL: This is a well-nourished, well-developed patient, in no apparent distress. SKIN: No rashes, ecchymoses or lesions. Cool and dry. HEAD: Atraumatic. Normocephalic. No temporal or scalp tenderness. EYES: Sclerae are clear and nonicteric ENT: No facial edema NECK: Trachea midline. No obvious tenderness CARDIOVASCULAR: Regular rate RESPIRATORY: Clear and nonlabored GASTROINTESTINAL: Abdomen soft, non-tender, no guarding. MUSCULOSKELETAL: Mild increased flexor tone right lower extremity, increased quadriceps tone and knee extension left lower extremity NEUROLOGICAL: Awake and relatively alert Nonverbal Tracks with conjugate gaze to the right and left to voice Appears to mildly grasp hands and lift right leg slightly to command. She does not cooperate well with facial motor testing or other cranial nerve testing. (Tavo Mujica) Lab, Micro, Other Results Recent Impressions Brain MRI 01/11/18 0000 Signed Impressions: Service Date/Time: January 08:45 - CONCLUSION: 1. Focal area of restricted diffusion in the left thalmus characteristic of an acute to subacute infarct. 2. GRE images demonstrate subacute hemorrhage associated with the infarct in the left thalamus. 3. GRE images also demonstrate punctate areas of microhemorrhage noted in the deep right mid parietal lobe, right occipital lobe and bilateral basal ganglia regions, left greater than right. 4. Diffuse bilateral cortical atrophy and chronic white matter changes. Luciano Morales MD Head CT 01/10/18 0000 Signed Impressions: Service Date/Time: Wednesday, January 10, 2018 10:47 - CONCLUSION: Atrophy, chronic small vessel ischemic change, and prior areas of infarction. No acute intracranial abnormality. Phillip Patel Jr., MD Laboratory Tests Test 01/10/18 06:55 01/10/18 12:59 White Blood Count 6.9 TH/MM3 Red Blood Count 3.98 MIL/MM3 Hemoglobin 10.6 GM/DL Hematocrit 32.7 % Mean Corpuscular Volume 82.1 FL Mean Corpuscular Hemoglobin 26.5 PG Mean Corpuscular Hemoglobin Concent 32.3 % Red Cell Distribution Width 15.6 % Platelet Count 408 TH/MM3 Mean Platelet Volume 8.2 FL Neutrophils (%) (Auto) 63.3 % Lymphocytes (%) (Auto) 19.3 % Monocytes (%) (Auto) 12.9 % Eosinophils (%) (Auto) 3.6 % Basophils (%) (Auto) 0.9 % Neutrophils # (Auto) 4.4 TH/MM3 Lymphocytes # (Auto) 1.3 TH/MM3 Monocytes # (Auto) 0.9 TH/MM3 Eosinophils # (Auto) 0.2 TH/MM3 Basophils # (Auto) 0.1 TH/MM3 CBC Comment DIFF FINAL Differential Comment Blood Urea Nitrogen 11 MG/DL Creatinine 0.34 MG/DL Random Glucose 90 MG/DL Albumin 2.8 GM/DL Calcium Level 9.0 MG/DL Phosphorus Level 2.5 MG/DL Magnesium Level 2.2 MG/DL Sodium Level 139 MEQ/L Potassium Level 3.9 MEQ/L Chloride Level 104 MEQ/L Carbon Dioxide Level 29.1 MEQ/L Anion Gap 6 MEQ/L Estimat Glomerular Filtration Rate 235 ML/MIN Erythrocyte Sedimentation Rate 48 mm/hr (Tavo Mujica) Medical Decision Making Impression and Plan Impression: Acute to subacute left thalamic infarct with mild hemorrhagic component in patient with previous history of relatively large left thalamic CVA. Risk of further expansion of the current hemorrhages very unlikely. No evidence of hydrocephalus. Plan: Primary management per Hospitalist. No neurosurgical intervention indicated at this point. She should be stable for chemical DVT prophylaxis. (Tavo Mujica) Attending Statement The exam, history, and the medical decision-making described in the above note were completed with the assistance of the mid-level provider. I reviewed and agree with the findings presented. I attest that I had a [id number] encounter with the patient on the same day, and personally performed and documented my assessment and findings in the medical record. On examination 01/12/2018 the patient remains mildly lethargic. She arouses easily. Conjugate extraocular movements. No definite facial motor deficit on today's exam although does not cooperate very well with testing. She has a weak right grasp and lifts her right leg a little bit to command. 01/11/2018 MRI revealed a probable acute to subacute small left thalamic infarct with small component of intracranial hemorrhage without significant mass effect. Neurologic exam stable. No neurosurgical intervention anticipated at this point. (Javi Wang MD) Tavo Mujica Jan 12, 2018 18:15 Javi Wang MD Jan 12, 2018 19:47
[2018-01-12 20:00] VITALS: BP 111/77; PULSE 78; RESP 16; TEMP 98.1; O2SAT 95
[2018-01-12] MEDS: LEVOFLOXACIN 750 MG TAB PEG SCH (20:48)
[2018-01-12 22:00] VITALS: BP 98/71; PULSE 77; RESP 16; O2SAT 94
[2018-01-13] VITALS: BP 118/82; PULSE 90; RESP 16; TEMP 97.6; O2SAT 97
[2018-01-13] MEDS: metroNIDAZOLE 500 MG TAB PO SCH ×3 (03:23→17:54)
[2018-01-13 03:38] VITALS: BP 100/71; PULSE 82; RESP 16; TEMP 99; O2SAT 96
[2018-01-13] MEDS: FREE WATER G-TUBE SCH ×3 (06:00→17:54)
[2018-01-13] MEDS: NIFEdipine 20 MG CAP SCH ×3 (06:07→17:54)
[2018-01-13] MEDS: hydrALAZINE HCL 100 MG TAB PEG SCH ×3 (06:07→20:49)
[2018-01-13 07:15] VITALS: BP 124/74; PULSE 90; RESP 20; TEMP 99.2; O2SAT 97
[2018-01-13] MEDS: HEPARIN SODIUM - SQ 10,000 UNITS/ML VIAL SQ SCH ×2 (08:59→20:50)
[2018-01-13] MEDS: HYDROCHLOROTHIAZIDE 25 MG TAB PO SCH (08:59)
[2018-01-13] MEDS: LANSOPRAZOLE SOLUTAB 30 MG TAB G-TUBE SCH (08:59)
[2018-01-13] MEDS: ESCITALOPRAM OXALATE 10 MG TAB PEG SCH (08:59)
[2018-01-13] MEDS: LACTOBACILLUS ACIDOPHILUS 1 GM PACKET PO SCH ×3 (09:00→17:55)
[2018-01-13] MEDS: LACTIC ACID (AMMONIUM LACTATE) 12% LOTION 225 GM BTL TOPICAL SCH ×2 (09:00→20:50)
[2018-01-13] MEDS: oxyCODONE/ACETAMINOPHEN 5 MG/325 MG TAB PO PRN ×2 (09:00→17:54)
[2018-01-13] MEDS: METOPROLOL TARTRATE 25 MG TAB PEG SCH ×2 (09:00→20:49)
[2018-01-13] MEDS: COLLAGENASE OINT 30 GM TUBE TOPICAL SCH (09:00)
--- NOTE | 2018-01-13 10:14 | HHI.PR ---
Subjective Remarks Pt seen. VS reviewed. D/W nursing. No acute events. 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 No fevers. Pt still nonverbal but follows commands Objective Vitals Vital Signs Date Time Temp Pulse Resp B/P (MAP) Pulse Ox O2 Delivery O2 Flow Rate FiO2 01/13/18 03:38 99.0 82 16 100/71 (81) 96 01/13/18 00:00 97.6 90 16 118/82 (94) 97 01/12/18 22:00 77 16 98/71 (80) 94 01/12/18 20:00 98.1 78 16 111/77 (88) 95 01/12/18 19:43 20 I/O 01/12/18 01/12/18 01/12/18 01/13/18 01/13/18 01/13/18 07:00 15:00 23:00 07:00 15:00 23:00 Intake Total 540 ml 1310 ml 1000 ml Output Total 650 ml 550.0 ml 500 ml Balance -110 ml 760.0 ml 500 ml Intake Oral 0 ml Tube Feeding 240 ml 960 ml 400 ml Other 300 ml 350 ml 600 ml Output Urine Total 650 ml 550 ml 500 ml Tube Feeding Residual Discard 0 ml # Bowel Movements 1 2 1 Result Diagram: 01/10/18 0655 01/10/18 0655 Objective Remarks GENERAL: Thin female laying in bed. Nonverbal. SKIN: From 01/06: large stage IV sacral ulcer with yellow drainage. No obvious fecal material. Not examined today (01/13) HEAD: Normocephalic. EYES: No scleral icterus. No injection or drainage. NECK: Supple, trachea midline. No JVD or lymphadenopathy. CARDIOVASCULAR: Regular rate and rhythm without murmurs, gallops, or rubs. RESPIRATORY: Breath sounds equal bilaterally. No accessory muscle use. GASTROINTESTINAL: Abdomen soft, non-tender, nondistended. EXTREMITIES: No cyanosis, or edema. NEUROLOGICAL: Awake, nonverbal. Responds to commands such as hand prosthetic makeup designer. No obvious facial droop. Procedures Peg Tube placed 05/08/17 (Dr. De Los Santos) Date of Insertion: Nov 08, 2017 A/P Problem List: (1) Major neurocognitive disorder ICD Code: F03.90 - Unspecified dementia without behavioral disturbance (2) Hemiparesis ICD Code: G81.90 - Hemiplegia, unspecified affecting unspecified side Status: Acute (3) Intracranial hemorrhage ICD Code: I62.9 - Nontraumatic intracranial hemorrhage, unspecified Status: Chronic (4) Aphasia ICD Code: R47.01 - Aphasia Assessment and Plan 62-year-old female with history of hemorrhagic stroke and resulting neurocognitive decline. Status post hemorrhagic CVA, new acute and subacute stroke with chronic right hemiplegia and aphasia. Questionable new facial droop noted several days ago and MRI showed acute to subacute left thalamic infarct with mild hemorrhagic component in patient with previous history of relatively large left thalamic CVA Neuro and neurosurgery consulted; no surgical intervention needed. Agreed to pharmacologic prophylaxis Facial droop improved UTI Ctx growing Enterobacter aerogenes. Patient on Levaquin x 14 days (started 01/03) Infectious disease suspects Cruz related infection Pt remains afebrile Sacral ulcer Stage IV pressure ulcer MRI showing bony edema and marrow replacement concerning for osteomyelitis; ID following Wound care following, S/P bedside debridement 01/11 History of hemorrhagic CVA Continue PT, OT, and ST Poor prognosis. Patient does not participate well with therapy Palliative care following Dysphagia Due to hemorrhagic stroke Status post PEG placement on 05/09/17 Continue tube feedings HTN Continue nifedipine 40 mg Q6H, Lisinopril 10 mg BID, Apresoline 50 mg Q6H, Metoprolol 100 mg BID, HCTZ 25 mg Daily Vasotec IV PRN, Clonidine PRN Hyperglycemia Glucerna for tube feeds Follow blood sugars intermittently Xeroderma on bilateral feet Lac-Hydrin 12% Lotion continued Depression Continue Lexapro 10 mg via PEG daily Nutrition Tube feeds changed to Glucerna 1.5 , bolus feeding with Tyshawn DVT Prophylaxis Restarting heparin today is cleared per neurosurgery Discharge Planning Patient was homeless prior to admit Poor access for inpatient rehabilitation Family desires aggressive measures for therapy and placement Independent funding unavailable for placement Long-term prognosis is poor No significant capacity for regaining full functionality Palliative care following Kat Harris MD Jan 13, 2018 10:14
[2018-01-13 12:15] VITALS: BP 130/68; PULSE 80; RESP 16; TEMP 98.9; O2SAT 96
[2018-01-13 16:15] VITALS: BP 140/84; PULSE 78; RESP 18; TEMP 99; O2SAT 95
[2018-01-13 20:00] VITALS: BP 121/86; PULSE 126; RESP 16; TEMP 99.8; O2SAT 95
[2018-01-13] MEDS: LEVOFLOXACIN 750 MG TAB PEG SCH (20:49)
[2018-01-13] MEDS: SODIUM HYPOCHLORITE 0.125% 500 ML BTL TOPICAL SCH (21:35)
[2018-01-14] VITALS (8 sets, daily range): BP systolic 91–135; BP diastolic 65–88; PULSE 77–98; RESP 16–20; TEMP 97.3–98.6; O2SAT 94–99
[2018-01-14] MEDS: NIFEdipine 20 MG CAP SCH ×5 (00:58→23:49)
[2018-01-14] MEDS: metroNIDAZOLE 500 MG TAB PO SCH ×3 (02:00→17:10)
[2018-01-14] MEDS: hydrALAZINE HCL 100 MG TAB PEG SCH ×3 (05:17→21:38)
[2018-01-14] MEDS: FREE WATER G-TUBE SCH ×5 (05:17→23:34)
[2018-01-14] MEDS: ONDANSETRON HCL 4 MG/5 ML UDC PEG PRN (08:51)
[2018-01-14] MEDS: LACTOBACILLUS ACIDOPHILUS 1 GM PACKET PO SCH ×3 (08:52→17:10)
[2018-01-14] MEDS: LANSOPRAZOLE SOLUTAB 30 MG TAB G-TUBE SCH (08:52)
[2018-01-14] MEDS: ESCITALOPRAM OXALATE 10 MG TAB PEG SCH (08:52)
[2018-01-14] MEDS: HEPARIN SODIUM - SQ 10,000 UNITS/ML VIAL SQ SCH ×2 (08:52→21:36)
[2018-01-14] MEDS: METOPROLOL TARTRATE 25 MG TAB PEG SCH ×2 (08:53→21:36)
[2018-01-14] MEDS: HYDROCHLOROTHIAZIDE 25 MG TAB PO SCH (08:54)
[2018-01-14] MEDS: SODIUM HYPOCHLORITE 0.125% 500 ML BTL TOPICAL SCH (08:54)
[2018-01-14] MEDS: COLLAGENASE OINT 30 GM TUBE TOPICAL SCH (08:54)
[2018-01-14] MEDS: LACTIC ACID (AMMONIUM LACTATE) 12% LOTION 225 GM BTL TOPICAL SCH ×2 (08:54→21:36)
--- NOTE | 2018-01-14 12:32 | HHI.PR ---
Subjective Remarks Pt seen and examined. AFVSS. D/W nursing. One episode of vomiting yesterday evening; none since receiving Zofran. Otherwise no acute events and no changes in neuro status. Objective Vitals Vital Signs Date Time Temp Pulse Resp B/P (MAP) Pulse Ox O2 Delivery O2 Flow Rate FiO2 01/14/18 07:00 98 01/14/18 04:00 98.6 89 16 91/65 (74) 94 01/14/18 00:00 88 01/14/18 00:00 98.6 87 16 127/86 (100) 98 01/13/18 20:00 126 01/13/18 20:00 99.8 126 16 121/86 (98) 95 01/13/18 18:50 18 01/13/18 16:15 99.0 78 18 140/84 (102) 95 I/O 01/13/18 01/13/18 01/13/18 01/14/18 01/14/18 01/14/18 07:00 15:00 23:00 07:00 15:00 23:00 Intake Total 1000 ml 1560 ml 800 ml Output Total 500 ml 1200.0 ml 400 ml Balance 500 ml 360.0 ml 400 ml Intake Oral 0 ml 0 ml Tube Feeding 400 ml 960 ml 200 ml Other 600 ml 600 ml 600 ml Output Urine Total 500 ml 1200 ml 400 ml Tube Feeding Residual Discard 0 ml # Bowel Movements 1 2 3 Result Diagram: 01/10/18 0655 01/10/18 0655 Objective Remarks GENERAL: Thin female laying in bed. Nonverbal. SKIN: From 01/06: large stage IV sacral ulcer with yellow drainage. No obvious fecal material. Not examined today (01/13) HEAD: Normocephalic. EYES: No scleral icterus. No injection or drainage. NECK: Supple, trachea midline. No JVD or lymphadenopathy. CARDIOVASCULAR: Regular rate and rhythm without murmurs, gallops, or rubs. RESPIRATORY: Breath sounds equal bilaterally. No accessory muscle use. GASTROINTESTINAL: Abdomen soft, non-tender, nondistended. EXTREMITIES: No cyanosis, or edema. NEUROLOGICAL: Awake, nonverbal. Responds to commands such as hand filler shaker. Boom Conveyor Operator strength L>>R. No obvious facial droop. Procedures Peg Tube placed 05/08/17 (Dr. De Los Santos) Date of Insertion: Nov 08, 2017 A/P Problem List: (1) Major neurocognitive disorder ICD Code: F03.90 - Unspecified dementia without behavioral disturbance (2) Hemiparesis ICD Code: G81.90 - Hemiplegia, unspecified affecting unspecified side Status: Acute (3) Intracranial hemorrhage ICD Code: I62.9 - Nontraumatic intracranial hemorrhage, unspecified Status: Chronic (4) Aphasia ICD Code: R47.01 - Aphasia Assessment and Plan 62-year-old female with history of hemorrhagic stroke and resulting neurocognitive decline. Status post hemorrhagic CVA, new acute and subacute stroke with chronic right hemiplegia and aphasia. Questionable new facial droop noted several days ago and MRI showed acute to subacute left thalamic infarct with mild hemorrhagic component in patient with previous history of relatively large left thalamic CVA Neuro and neurosurgery consulted; no surgical intervention needed. Agreed to pharmacologic prophylaxis Facial droop improved UTI Ctx growing Enterobacter aerogenes. Patient on Levaquin x 14 days (started 01/03) Infectious disease suspects Cruz related infection Pt remains afebrile Vomiting Emesis x 1 overnight Zofran PRN If continues may need to repeat CT head but at this point there are no neurologic changes or new deficits Sacral ulcer Stage IV pressure ulcer MRI showing bony edema and marrow replacement concerning for osteomyelitis; ID following Wound care following, S/P bedside debridement 01/11 History of hemorrhagic CVA Continue PT, OT, and ST Poor prognosis. Patient does not participate well with therapy Palliative care following Dysphagia Due to hemorrhagic stroke Status post PEG placement on 05/09/17 Continue tube feedings HTN Continue nifedipine 40 mg Q6H, Lisinopril 10 mg BID, Apresoline 50 mg Q6H, Metoprolol 100 mg BID, HCTZ 25 mg Daily Vasotec IV PRN, Clonidine PRN Hyperglycemia Glucerna for tube feeds Follow blood sugars intermittently Xeroderma on bilateral feet Lac-Hydrin 12% Lotion continued Depression Continue Lexapro 10 mg via PEG daily Nutrition Tube feeds changed to Glucerna 1.5 , bolus feeding with Tyshawn DVT Prophylaxis Restarting heparin today is cleared per neurosurgery Discharge Planning Patient was homeless prior to admit Poor access for inpatient rehabilitation Family desires aggressive measures for therapy and placement Independent funding unavailable for placement Long-term prognosis is poor No significant capacity for regaining full functionality Palliative care following Kat Harris MD Jan 14, 2018 12:32
[2018-01-14] MEDS: LEVOFLOXACIN 750 MG TAB PEG SCH (21:35)
[2018-01-15 00:11] VITALS: PULSE 86
[2018-01-15] MEDS: metroNIDAZOLE 500 MG TAB PO SCH ×3 (01:59→17:23)
[2018-01-15 04:00] VITALS: BP 141/87; PULSE 85; RESP 18; TEMP 98.1; O2SAT 98
[2018-01-15] MEDS: FREE WATER G-TUBE SCH ×3 (06:00→17:22)
[2018-01-15] MEDS: hydrALAZINE HCL 100 MG TAB PEG SCH ×3 (06:00→21:49)
[2018-01-15] MEDS: NIFEdipine 20 MG CAP SCH ×3 (06:00→17:22)
[2018-01-15 08:00] VITALS: BP 128/83; PULSE 82; RESP 14; TEMP 97.8; O2SAT 98
[2018-01-15] MEDS: ESCITALOPRAM OXALATE 10 MG TAB PEG SCH (08:43)
[2018-01-15] MEDS: HEPARIN SODIUM - SQ 10,000 UNITS/ML VIAL SQ SCH ×2 (08:43→21:50)
[2018-01-15] MEDS: METOPROLOL TARTRATE 25 MG TAB PEG SCH ×2 (08:43→21:50)
[2018-01-15] MEDS: LACTOBACILLUS ACIDOPHILUS 1 GM PACKET PO SCH ×3 (08:43→17:23)
[2018-01-15] MEDS: LANSOPRAZOLE SOLUTAB 30 MG TAB G-TUBE SCH (08:43)
[2018-01-15] MEDS: HYDROCHLOROTHIAZIDE 25 MG TAB PO SCH (08:43)
[2018-01-15] MEDS: LACTIC ACID (AMMONIUM LACTATE) 12% LOTION 225 GM BTL TOPICAL SCH ×2 (08:44→21:51)
[2018-01-15] MEDS: COLLAGENASE OINT 30 GM TUBE TOPICAL SCH (08:44)
--- NOTE | 2018-01-15 15:30 | HHI.PR ---
Subjective Remarks Pt seen and examined. AFVSS. D/W nursing. No acute events or neuro status changes. Pt remains nonverbal but able to follow some motor commands such as closing her eyes and gripping. Objective Vitals Vital Signs Date Time Temp Pulse Resp B/P (MAP) Pulse Ox O2 Delivery O2 Flow Rate FiO2 01/15/18 08:00 97.8 82 14 128/83 (98) 98 01/15/18 08:00 82 01/15/18 04:00 98.1 85 18 141/87 (105) 98 01/15/18 00:11 86 01/14/18 23:52 98.6 77 18 119/76 (90) 98 01/14/18 20:05 98.2 90 20 129/85 (100) 97 I/O 01/14/18 01/14/18 01/14/18 01/15/18 01/15/18 01/15/18 07:00 15:00 23:00 07:00 15:00 23:00 Intake Total 800 ml 1260 ml 900 ml Output Total 400 ml 500.0 ml 800 ml Balance 400 ml 760.0 ml 100 ml Intake Oral 0 ml 0 ml Tube Feeding 200 ml 960 ml 300 ml Other 600 ml 300 ml 600 ml Output Urine Total 400 ml 500 ml 800 ml Tube Feeding Residual Discard 0 ml # Bowel Movements 3 3 2 Objective Remarks GENERAL: Thin female laying in bed. Nonverbal. SKIN: From 01/06: large stage IV sacral ulcer with yellow drainage. No obvious fecal material. Not examined today (01/13) HEAD: Normocephalic. EYES: No scleral icterus. No injection or drainage. NECK: Supple, trachea midline. No JVD or lymphadenopathy. CARDIOVASCULAR: Regular rate and rhythm without murmurs, gallops, or rubs. RESPIRATORY: Breath sounds equal bilaterally. No accessory muscle use. GASTROINTESTINAL: Abdomen soft, non-tender, nondistended. EXTREMITIES: No cyanosis, or edema. NEUROLOGICAL: Awake, nonverbal. Responds to commands such as hand poacher operator. Manager Data strength L>>R. No obvious facial droop. Procedures Peg Tube placed 05/08/17 (Dr. De Los Santos) Date of Insertion: Nov 08, 2017 A/P Problem List: (1) Major neurocognitive disorder ICD Code: F03.90 - Unspecified dementia without behavioral disturbance (2) Hemiparesis ICD Code: G81.90 - Hemiplegia, unspecified affecting unspecified side Status: Acute (3) Intracranial hemorrhage ICD Code: I62.9 - Nontraumatic intracranial hemorrhage, unspecified Status: Chronic (4) Aphasia ICD Code: R47.01 - Aphasia Assessment and Plan 62-year-old female with history of hemorrhagic stroke and resulting neurocognitive decline. Status post hemorrhagic CVA, new acute and subacute stroke with chronic right hemiplegia and aphasia. Questionable new facial droop noted several days ago and MRI showed acute to subacute left thalamic infarct with mild hemorrhagic component in patient with previous history of relatively large left thalamic CVA Neuro and neurosurgery consulted; no surgical intervention needed. Agreed to pharmacologic prophylaxis Facial droop improved UTI Ctx growing Enterobacter aerogenes. Patient on Levaquin x 14 days (started 01/03) Infectious disease suspects Cruz related infection Pt remains afebrile Vomiting Resolved Zofran PRN If continues may need to repeat CT head but at this point there are no neurologic changes or new deficits Sacral ulcer Stage IV pressure ulcer MRI showing bony edema and marrow replacement concerning for osteomyelitis; ID following Wound care following, S/P bedside debridement 01/11 History of hemorrhagic CVA Continue PT, OT, and ST Poor prognosis. Patient does not participate well with therapy Palliative care following Dysphagia Due to hemorrhagic stroke Status post PEG placement on 05/09/17 Continue tube feedings HTN Continue nifedipine 40 mg Q6H, Lisinopril 10 mg BID, Apresoline 50 mg Q6H, Metoprolol 100 mg BID, HCTZ 25 mg Daily Vasotec IV PRN, Clonidine PRN Hyperglycemia Glucerna for tube feeds Follow blood sugars intermittently Xeroderma on bilateral feet Lac-Hydrin 12% Lotion continued Depression Continue Lexapro 10 mg via PEG daily Nutrition Tube feeds changed to Glucerna 1.5 , bolus feeding with Tyshawn DVT Prophylaxis Heparin (cleared by neurosurgery) Discharge Planning Patient was homeless prior to admit Poor access for inpatient rehabilitation Family desires aggressive measures for therapy and placement Independent funding unavailable for placement Long-term prognosis is poor No significant capacity for regaining full functionality Palliative care following Kat Harris MD Jan 15, 2018 15:30
--- NOTE | 2018-01-15 16:49 | HHI.HCPN ---
Reason for visit a. To assist with evaluation and management of symptoms including: dysphagia , aphasia, hemiparesis, pain. b. To assist medical decision maker(s) with: better understanding of current medical conditions; weighing benefits/burdens of medical treatment options; making medical treatment decisions. Subjective/Interval History Patient seen to follow-up on goals of care and symptom management. 62-year-old female status post hemorrhagic CVA, with long hospitalization and sacral wound status post surgical debridement 10/17/17. She remains aphasic with right neglect, right-sided hemiparesis. She does turn her head to voice with effort. She receives bolus tube feedings of 240 mL of Glucerna 5 times daily. There has been a weight increase since 01/11/18 from 51 kg to 59.2 kg today. She has a sacral pressure injury that is unstageable measuring 5.0 cm x 3.0 cm x 2.3 cm with undermining from 7 to 4:00 with max depth at 12:00 measuring 3.5 cm. Wound base is approximately 50% dull pink tissue and approximately 30% yellow slough approximately 10% black necrotic tissue and approximately 10% bone. Sharp debridement was completed and wound cleansed with normal saline on 01/11/2018. Wound was dressed with Santyl 2 mm thick the wound base with Maxorb to lightly packed and wound covered with border gauze. Abdomen/pelvis CT done 01/09/2018 shows sacral decubitus wound/ ulcer extending to the sacrum. Prior MRI demonstrating abnormal sacrum in the inferior aspect of the sacrum and coccyx with presacral edema, highly suspicious for osteomyelitis. On 01/11 she was found to have developed a new right facial droop and neurology and neurosurgery were consulted. Brain MRI was completed showing a focal area of restricted diffusion in the left thalamus characteristic of an acute to subacute infarct. GRE images demonstrating subacute hemorrhage associated with the infarct in the left thalamus. GRE images also demonstrate punctate areas of microhemorrhage noted in the deep right mid parietal lobe, right occipital lobe and bilateral basal ganglia regions, left greater than right. Diffuse bilateral cortical atrophy and chronic white matter changes. No neurosurgical intervention was anticipated for the probable acute to subacute small left thalamic infarct with small component of intracranial bleeding without significant mass-effect. On 01/03 she was found to have a urinary tract infection growing Enterobacter aerogenes and Levaquin and Flagyl were initiated for 14 days by infectious disease, who also requested a CT scan of the abdomen and pelvis which verified that there was no connection with the colon. Previous CT of sacrum and coccyx identified a large decubitus ulcer posteriorly with not only bony edema and marrow replacement concerning for osteomyelitis but extending to the presacral fat with there is marked enhancement and fluid on the T2-weighted sequences. The coccygeal involvement is at least 3.5 cm in length. Spoke with Gerardo aldridge regarding patient discharge plans and he advises that the patient's brother, King Elsy, has been difficult to reach. She has been evaluated by [facility], [facility], [facility] and [facility] and [facility]. Facilities have reported no return call from the brother. Last note entered by case management on 01/10/2018, patient's brother King Elsy ([phone]) is now Payee. Medicaid approved. Patient his a [employer] pension and will be able to get Medicare when she is 64 years old. Pending communication between the brother and an accepting custodial facility for placement. . Family/friend interactions Spoke with patient's brother, King Elsy, and provided medical update, palliative care purpose and focus. He asked for her prognosis and I advised him that according to the attending physician and the various consultants, no further significant recovery is expected. He states he did not want her to go to the [facility] as it smelled bad and the patient's were agitated. He said he would approve of [facility] or [facility]. This information was passed to Mr. Aldridge who will continue to try to facilitate communication between brother and facility to arrange transfer. I also advised Mr. Chin that Mr. Aldridge was attempting to contact him and he said he was busy now and "would contact him sometime later this week." Advance Directives Living Will: Never completed Health Care Surrogate: Never completed Durable Power of Heeler: Never completed Objective Vital Signs Date Time Temp Pulse Resp B/P (MAP) Pulse Ox O2 Delivery O2 Flow Rate FiO2 01/15/18 08:00 97.8 82 14 128/83 (98) 98 01/15/18 08:00 82 01/15/18 04:00 98.1 85 18 141/87 (105) 98 01/15/18 00:11 86 01/14/18 23:52 98.6 77 18 119/76 (90) 98 01/14/18 20:05 98.2 90 20 129/85 (100) 97 Intake & Output 01/15/18 01/15/18 07:00 19:00 Intake Total 900 ml Output Total 800 ml Balance 100 ml Intake Oral 0 ml Tube Feeding 300 ml Other 600 ml Output Urine Total 800 ml Tube Feeding Residual Discard 0 ml # Bowel Movements 2 Physical Exam CONSTITUTIONAL/GENERAL: This is an adequately nourished patient, in no apparent distress. SKIN: No jaundice, rashes, or lesions. Sacral wound s/p debridement, wound VAC intact. Skin temperature appropriate. Not diaphoretic. HEAD: Atraumatic. Normocephalic. EYES: Pupils equal and round and reactive. No scleral icterus. No injection or drainage. NECK: Trachea midline. Supple, nontender. CARDIOVASCULAR: Regular rate and rhythm without murmurs, gallops, or rubs. No JVD. Peripheral pulses symmetric. RESPIRATORY/CHEST: Symmetric, unlabored respirations. Clear to auscultation. Breath sounds equal bilaterally. No wheezes, rales, or rhonchi. GASTROINTESTINAL: Abdomen soft, non-tender, nondistended. No guarding. Bowel sounds present. PEG to LUQ currently clamped. Fecal collection device in place- with liquid brown stool GENITOURINARY: Without palpable bladder distension. Cruz catheter in place. MUSCULOSKELETAL: Bilateral foot drop, no edema, has podus boots in place. NEUROLOGICAL: Arouses to verbal stimuli. Right sided hemiparesis, flaccid. Right neglect. Follows simple command with left upper extremity only. Attempts to mouth some words PSYCHIATRIC: No obvious anxiety/depression noted. . Diagnostic Tests Procedures 05/08/17: PEG placement . Assessment and Plan Disease Oriented Problem List: (1) Intracranial hemorrhage Comment: left thalamic hemorrhage, due to hypertensive emergency. (2) Malignant hypertension Comment: complicated by non compliance with medication due to delusion and paranoia (3) Unspecified psychosis (4) Delusional disorder (5) Hemiparesis Comment: right (6) Psychosis Symptom Scale: (1) Dysphagia 0-10 Scale: Unable to quantify (2) Aphasia 0-10 Scale: Unable to quantify (3) Hemiparesis 0-10 Scale: Unable to quantify Comment: Recent CVA . Pertinent Non-Medical Issues Psychosocial:hx of delusions, paranoia, bruno act, non-compliance, now with thalamic stroke. Pt also is pending SSI. Spiritual:mandaen Legal:If not capacitated, surviving children, pt's daughter and son would be health care proxy. Son appears to be difficult to reach, per social media developer. Ethical issues impacting care:none at this time. Important Contacts Aleena Wallace [phone]. Number is currently disconnected. Henri Birmingham [phone], . Prognosis Patient with psychiatric hx of delusions, paranoia, has extensive hospital stay of 160 plus days after a left thalamic stroke. Pt is peg tube dependent, with hemiperisis; but has been relatively stable since April. She is at risk of recurrent hospitalization and setbacks. However given no recent pneumonia episodes, or major complications, I feel given pt continue tube feedings, prognosis is > 6 months. Albumin is 3.2 since last check on 11/02/2017. . Code Status: Full Code Plan PLAN: Legal decision maker: She has 2 children who serve as joint proxy. Goals: Aggressive. CODE STATUS: FULL CODE SYMPTOMS: * Dysphasia: Repeatedly failed swallow evaluation, ST signed off. PEG tube placed, tolerating bolus feedings of 240 mL 5 times a day. Admission weight 62.9 KGs. Weight currently 64.7 KG is as of 11/27/17. No recommendations * Aphasia: Secondary to left thalamus stroke. Able to nod her head intermittently to questions, but not consistently. * Right hemiparesis: Continues physical therapy. * Pain: Likely source of pain is bedbound status, invasive lines, large tunnelled sacral decubitus, wound VAC in place. Does not appear to be in pain during visit. Patient remains a placement issue. Now approved for Medicaid. The difficulty remains with family consistently responding to requests for information. Facilities who have agreed to evaluate the patient are unable to contact the brother or have calls returned. The brother has declined city hospital. Continue to coordinate with case management to obtain placement. Palliative care will continue to follow the patient during hospital course as condition evolves, to assist patient/decision-maker with understanding of their medical conditions, weighing benefits/burdens of treatment options, for clarification of goals of treatment. Additionally will assist with any symptoms of palliative concern. . Attestation To help prompt me to consider important information that might be impacting today's encounter and assessment, information from prior notes written by myself or my colleagues may have been "brought forward" into today's note. My signature on this note, however, is an attestation that I personally performed the exam, history, and/or decision-making noted today, and, unless otherwise indicated, the interactions with patient, family, and staff as well as the review of records all occurred today. I also attest that the listed assessment and stated plan reflect my best clinical judgment today based on the combination of historical information, prior notes, and today's exam/ interactions. When time spent is documented, it refers only to time spent today by the signer, or if indicated, combined time spent today by collaborating physician/nurse practitioner. . Suzi Aldridge Jan 15, 2018 16:49
[2018-01-15] MEDS: SODIUM HYPOCHLORITE 0.125% 500 ML BTL TOPICAL SCH (17:22)
[2018-01-15 18:25] VITALS: PULSE 94
[2018-01-15 20:00] VITALS: BP 129/77; PULSE 78; RESP 14; TEMP 98.4; O2SAT 98
[2018-01-15] MEDS: LEVOFLOXACIN 750 MG TAB PEG SCH (21:43)
[2018-01-16] MEDS: metroNIDAZOLE 500 MG TAB PO SCH ×3 (02:00→18:29)
[2018-01-16 04:00] VITALS: PULSE 85
[2018-01-16 06:00] VITALS: BP 129/77; PULSE 78; RESP 18; TEMP 98.4; O2SAT 99
[2018-01-16] MEDS: NIFEdipine 20 MG CAP SCH ×4 (06:24→18:29)
[2018-01-16] MEDS: hydrALAZINE HCL 100 MG TAB PEG SCH ×3 (06:24→21:34)
[2018-01-16 07:36] VITALS: PULSE 74
[2018-01-16 08:00] VITALS: BP 130/82; PULSE 77; RESP 14; TEMP 98.7; O2SAT 97
[2018-01-16] MEDS: LACTOBACILLUS ACIDOPHILUS 1 GM PACKET PO SCH ×3 (08:58→18:29)
[2018-01-16] MEDS: FREE WATER G-TUBE SCH ×4 (08:58→18:29)
[2018-01-16] MEDS: ESCITALOPRAM OXALATE 10 MG TAB PEG SCH (08:58)
[2018-01-16] MEDS: METOPROLOL TARTRATE 25 MG TAB PEG SCH ×2 (08:58→21:34)
[2018-01-16] MEDS: HYDROCHLOROTHIAZIDE 25 MG TAB PO SCH (08:58)
[2018-01-16] MEDS: LANSOPRAZOLE SOLUTAB 30 MG TAB G-TUBE SCH (08:58)
[2018-01-16] MEDS: HEPARIN SODIUM - SQ 10,000 UNITS/ML VIAL SQ SCH ×2 (08:58→21:34)
[2018-01-16] MEDS: LACTIC ACID (AMMONIUM LACTATE) 12% LOTION 225 GM BTL TOPICAL SCH (08:59)
[2018-01-16] MEDS: SODIUM HYPOCHLORITE 0.125% 500 ML BTL TOPICAL SCH (08:59)
[2018-01-16] MEDS: COLLAGENASE OINT 30 GM TUBE TOPICAL SCH (08:59)
--- NOTE | 2018-01-16 10:54 | HHI.IDPN ---
Subjective Subjective Remarks ID RECONSULT Gen. originally seen by infectious disease the first week of October for evaluation of fever . [place] was found in the park with altered mental status and R weakness, found to be suffering from large left parenchymal hemorrhage was intraventricular extension on initial CT scan, now with prolonged hospital course without much improvement in mentation . Patient has had a h/o UTI and now has a sacral decubitus ulcer. Last 3 days patient has been having fevers. Started on Zosyn and now IV Vancomycin- with continued fevers so ID has been consulted. Still running fever. She had debridement of her sacral decubitus. Culture grew Pseudomonas. Patient completed a four-week course of IV antibiotic. She was initially on Zosyn, but developed a rash, and completed the course of treatment with IV cefepime. Patient since has been stable from ID standpoint up until about 3-4 days ago when she started having fevers. There was a urine culture from December to that had Enterobacter. I'm not sure if she received any treatment for that. Repeat urine culture from December 25 has Escherichia coli and Enterobacter. New cultures done 2 blood culture and urine culture that are still pending. Patient has a Helms catheter in place, last change December 09. ID reconsultation has been requested to evaluate the fever. She is currently on IV Levaquin Notes reviewed Temps ok Clinically stable from ID standpoint On RA Awake, occ looks at me Antibiotics Levaquin Flagyl Current Medications Medications (Trade) Dose Ordered Sig/Reymundo Route Start Time Stop Time Status Last Admin (Dulcolax Supp) 10 mg DAILY PRN RECTAL 04/10/17 22:00 (Lac-Hydrin 12% Lotion) 1 applic BID TOPICAL 05/04/17 14:00 01/16/18 08:59 (Prevacid Odt) 30 mg DAILY G-TUBE 05/10/17 09:00 01/16/18 08:58 (Apresoline) 25 mg Q4HR PRN PEG 05/18/17 14:45 11/04/17 14:28 (Zofran Liq) 4 mg Q6H PRN PEG 05/26/17 10:00 01/14/18 08:51 (Tylenol) 650 mg Q6H PRN PEG 06/16/17 16:00 Future Hold 10/17/17 19:29 (Senna Liq) 8.8 mg DAILY PEG 06/29/17 09:00 Future Hold 10/17/17 10:02 (Hydrodiuril) 25 mg DAILY PO 09/27/17 09:15 Future hold 01/16/18 08:58 (Pill Splitter) 1 ea UNSCH PRN OTHER 10/17/17 17:45 12/08/17 20:45 (Free Water) 150 ml Q6HR G-TUBE 10/19/17 12:00 01/16/18 08:58 (NS Flush) 2 ml UNSCH PRN IV FLUSH 11/17/17 10:15 01/04/18 08:21 (Lopressor) 25 mg BID PEG 11/24/17 21:00 01/16/18 08:58 (Apresoline) 50 mg Q8HR PEG 12/12/17 22:00 01/16/18 06:24 (Miralax) 17 gm DAILY PRN PO 12/16/17 18:00 (Percocet 5-325 Mg) 1 tab Q6H PRN PO 12/22/17 15:00 01/13/18 17:54 (Percocet 10-325 Mg) 1 tab Q6H PRN PO 12/22/17 15:00 01/06/18 08:22 (Santyl Oint) 1 applic DAILY TOPICAL 12/25/17 17:00 01/16/18 08:59 (Procardia) 40 mg Q6HR .XX 12/27/17 12:00 01/16/18 06:26 (Lexapro) 10 mg DAILY PEG 01/02/18 17:15 01/16/18 08:58 (Levaquin) 750 mg Q24H PEG 01/03/18 20:00 02/21/18 23:00 01/15/18 21:43 (Flagyl) 500 mg Q8H PO 01/09/18 10:00 01/16/18 08:58 (Heparin Inj) 5,000 units Q12HR SQ 01/13/18 09:00 01/16/18 08:58 (Lactinex Pkt) 1 gm TID PO 01/12/18 18:00 01/16/18 08:58 (Dakin'S 0.125% Soln) 50 ml DAILY TOPICAL 01/13/18 20:00 01/16/18 08:59 Lines Peripheral IV line Past Medical History Intracranial Hemorrhage Allergies: Coded Allergies: No Known Allergies (Unverified , 09/05/16) Objective . Vital Signs Date Time Temp Pulse Resp B/P (MAP) Pulse Ox O2 Delivery O2 Flow Rate FiO2 01/16/18 07:36 74 01/16/18 06:00 98.4 78 18 129/77 (94) 99 01/16/18 04:00 85 01/15/18 20:00 98.4 78 14 129/77 (94) 98 01/15/18 18:25 94 Imaging RADIOLOGY STUDIES/FILMS REVIEWED Sacrum/Coccyx MRI 01/06/18 0000 Signed Impressions: Service Date/Time: Saturday, January 06, 2018 08:30 - CONCLUSION: Large decubitus ulcer posteriorly with not only bony edema and marrow replacement concerning for osteomyelitis but it extends to the presacral fat is well where there is marked enhancement and fluid on the T2-weighted sequences. The coccygeal involvement is at least 3.5 cm in length. Eliud Du MD Chest X-Ray 01/01/18 0000 Signed Impressions: Service Date/Time: Monday, January 01, 2018 20:33 - CONCLUSION: 1. No acute findings. Adi Quarles MD Abdomen X-Ray 12/13/17 0000 Signed Impressions: Service Date/Time: Wednesday, December 13, 2017 14:17 - CONCLUSION: PEG tube in stomach.. Harry Dumas MD FACR Upper Extremity Ultrasound 11/06/17 0000 Signed Impressions: Service Date/Time: Monday, November 06, 2017 14:17 - CONCLUSION: Normal examination. K. Byron Perez MD Pelvis CT 10/13/17 0000 Signed Impressions: Service Date/Time: Friday, October 13, 2017 12:02 - CONCLUSION: 1. Decubitus ulcer with small abscess in the right posterior perineal region measuring 3.1 x 4.6 cm. There is also a small abscess posterior and to the left of the rectum measuring 3.2 x 2.3 cm. Jann Weber MD Head CT 04/25/17 0000 Signed Impressions: Service Date/Time: Tuesday, April 25, 2017 18:02 - CONCLUSION: 1. Evolving left thalamic hematoma. No new hemorrhage. Adi Quarles MD Neck CTA 6/5/17 0000 Signed Impressions: Service Date/Time: Monday, April 10, 2017 22:28 - CONCLUSION: The internal carotid arteries are normal bilaterally. No significant atherosclerotic disease is noted. Eliud Du MD Head CTA 04/10/17 0000 Signed Impressions: Service Date/Time: Monday, April 10, 2017 22:50 - CONCLUSION: Mild dilatation of the basilar tip without discrete aneurysm. Some narrowing of the left middle cerebral branch after the bifurcation. Prominent left thalamic hemorrhage. Eliud Du MD Chest X-Ray 01/01/18 0000 Signed Impressions: Service Date/Time: Monday, January 01, 2018 20:33 - CONCLUSION: 1. No acute findings. Adi Quarles MD Physical Exam GENERAL: awake, did not follow command today. Not in any distress. SKIN: Warm and dry, no generalized rash, no ecchymoses HEAD: Atraumatic. Normocephalic. No temporal or scalp tenderness. EYES: Extraocular motions intact. No scleral icterus. No injection or drainage. EARS, NOSE AND THROAT: Moist mucosa, come white coating on her tongue, did not completely open mouth for full exam. No nasl discharde NECK: Trachea midline. No JVD or lymphadenopathy. Supple, nontender, no meningeal signs. CARDIOVASCULAR: Regular rate and rhythm . Soft systolic murmur at LSB. RESPIRATORY: Clear to auscultation. Breath sounds equal bilaterally. No wheezes , rales, or rhonchi. GASTROINTESTINAL: Abdomen soft, non-tender, nondistended. No hepato-splenomegaly , or palpable masses. No guarding. Peg tube site ok MUSCULOSKELETAL: Extremities with wasting. NO edema. Both feet plantar flexed BACK: Dressing in place in decubitus, with stool, (+) odor NEUROLOGICAL: Awake and alert. Patient with hemiplegia LINE: PIV no evidence of infection : Helms in place, urine looks clear Assessment & Plan Remarks IMPRESSION New fever likely due to helms associated, better - helms changed monthly Sacral decubitus worsening, has findings of osteo on MRI S/P Rx infected sacral decubitus, PSAE S/P Rx previous UTI ICH RECOMMENDATION Continue Levaquin - end date February Continue Flagyl - end date February 05 Wound care Monitor progress Complete 6 weeks Abx for her sacral decubitus - with Levaquin and Flagyl I will sign off Please reconsult if with any new ID issue or question D/W Kaylyn Waters MD Jan 16, 2018 10:54
[2018-01-16] MEDS: oxyCODONE/ACETAMINOPHEN 5 MG/325 MG TAB PO PRN (13:12)
--- NOTE | 2018-01-16 14:29 | HHI.PR ---
Subjective Remarks Follow up for CVA, UTI. The patient is seen lying in bed. She is nonverbal. She does follow some commands such as closes eyes and will lift left arm and squeeze hand. She tried to lift right arm with minimal movement. Discussed with RN, no acute concerns. Vital signs reviewed and stable. Objective Vitals Vital Signs Date Time Temp Pulse Resp B/P (MAP) Pulse Ox O2 Delivery O2 Flow Rate FiO2 01/16/18 07:36 74 01/16/18 06:00 98.4 78 18 129/77 (94) 99 01/16/18 04:00 85 01/15/18 20:00 98.4 78 14 129/77 (94) 98 01/15/18 18:25 94 I/O 01/15/18 01/15/18 01/15/18 01/16/18 01/16/18 01/16/18 06:59 14:59 22:59 06:59 14:59 22:59 Intake Total 900 ml 1260 ml 550 ml Output Total 800 ml 500 ml 300 ml Balance 100 ml 760 ml 250 ml Intake Oral 0 ml Tube Feeding 300 ml 960 ml 250 ml Other 600 ml 300 ml 300 ml Output Urine Total 800 ml 500 ml 300 ml # Bowel Movements 2 3 1 Imaging Last Impressions Brain MRI 01/11/18 0000 Signed Impressions: Service Date/Time: January 08:45 - CONCLUSION: 1. Focal area of restricted diffusion in the left thalmus characteristic of an acute to subacute infarct. 2. GRE images demonstrate subacute hemorrhage associated with the infarct in the left thalamus. 3. GRE images also demonstrate punctate areas of microhemorrhage noted in the deep right mid parietal lobe, right occipital lobe and bilateral basal ganglia regions, left greater than right. 4. Diffuse bilateral cortical atrophy and chronic white matter changes. Luciano Morales MD Head CT 01/10/18 0000 Signed Impressions: Service Date/Time: Wednesday, January 10, 2018 10:47 - CONCLUSION: Atrophy, chronic small vessel ischemic change, and prior areas of infarction. No acute intracranial abnormality. Phillip Patel Jr., MD Abdomen/Pelvis CT 01/09/18 0000 Signed Impressions: Service Date/Time: Tuesday, January 09, 2018 18:48 - CONCLUSION: 1. There is a sacral decubitus wound/ulcer which extends to the sacrum. Prior MRI demonstrated abnormal sacrum in the inferior aspect of the sacrum and coccyx. There is also presacral edema. These findings are highly suspicious for osteomyelitis. 2. Nonacute findings include 3 mm nonobstructing right renal stone and multi-fibroid uterus. Hu Cuenca MD Sacrum/Coccyx MRI 01/06/18 0000 Signed Impressions: Service Date/Time: Saturday, January 06, 2018 08:30 - CONCLUSION: Large decubitus ulcer posteriorly with not only bony edema and marrow replacement concerning for osteomyelitis but it extends to the presacral fat is well where there is marked enhancement and fluid on the T2-weighted sequences. The coccygeal involvement is at least 3.5 cm in length. Eliud Du MD Chest X-Ray 01/01/18 0000 Signed Impressions: Service Date/Time: Monday, January 01, 2018 20:33 - CONCLUSION: 1. No acute findings. Adi Quarles MD Abdomen X-Ray 12/13/17 0000 Signed Impressions: Service Date/Time: Wednesday, December 13, 2017 14:17 - CONCLUSION: PEG tube in stomach.. Harry Dumas MD FACR Upper Extremity Ultrasound 11/06/17 0000 Signed Impressions: Service Date/Time: Monday, November 06, 2017 14:17 - CONCLUSION: Normal examination. Kelby Perez MD Pelvis CT 10/13/17 0000 Signed Impressions: Service Date/Time: Friday, October 13, 2017 12:02 - CONCLUSION: 1. Decubitus ulcer with small abscess in the right posterior perineal region measuring 3.1 x 4.6 cm. There is also a small abscess posterior and to the left of the rectum measuring 3.2 x 2.3 cm. Jann Weber MD Neck CTA 04/10/17 0000 Signed Impressions: Service Date/Time: Monday, April 10, 2017 22:28 - CONCLUSION: The internal carotid arteries are normal bilaterally. No significant atherosclerotic disease is noted. Eliud Du MD Head CTA 04/10/17 0000 Signed Impressions: Service Date/Time: Monday, April 10, 2017 22:50 - CONCLUSION: Mild dilatation of the basilar tip without discrete aneurysm. Some narrowing of the left middle cerebral branch after the bifurcation. Prominent left thalamic hemorrhage. Eliud Du MD Objective Remarks GENERAL: Thin female laying in bed. Nonverbal. SKIN: Has large stage IV sacral ulcer; not visualized today 01/16 HEAD: Normocephalic. EYES: No scleral icterus. No injection or drainage. NECK: Supple, trachea midline. CARDIOVASCULAR: Regular rate and rhythm. No murmur appreciated. RESPIRATORY: Breath sounds equal bilaterally. No accessory muscle use. GASTROINTESTINAL: Abdomen soft, non-tender, nondistended. EXTREMITIES: No cyanosis or edema. NEUROLOGICAL: Awake, nonverbal. 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 Relief Driller strength L>R. No obvious facial droop. Procedures Peg Tube placed 05/08/17 (Dr. De Los Santos) Medications and IVs Current Medications Medications (Trade) Dose Ordered Sig/Reymundo Route Start Time Stop Time Status Last Admin (Dulcolax Supp) 10 mg DAILY PRN RECTAL 04/10/17 22:00 (Lac-Hydrin 12% Lotion) 1 applic BID TOPICAL 05/04/17 14:00 01/16/18 08:59 (Prevacid Odt) 30 mg DAILY G-TUBE 05/10/17 09:00 01/16/18 08:58 (Apresoline) 25 mg Q4HR PRN PEG 05/18/17 14:45 11/04/17 14:28 (Zofran Liq) 4 mg Q6H PRN PEG 05/26/17 10:00 01/14/18 08:51 (Tylenol) 650 mg Q6H PRN PEG 06/16/17 16:00 Future Hold 10/17/17 19:29 (Senna Liq) 8.8 mg DAILY PEG 06/29/17 09:00 Future Hold 10/17/17 10:02 (Hydrodiuril) 25 mg DAILY PO 09/27/17 09:15 Future hold 01/16/18 08:58 (Pill Splitter) 1 ea UNSCH PRN OTHER 10/17/17 17:45 12/08/17 20:45 (Free Water) 150 ml Q6HR G-TUBE 10/19/17 12:00 01/16/18 13:12 (NS Flush) 2 ml UNSCH PRN IV FLUSH 11/17/17 10:15 01/04/18 08:21 (Lopressor) 25 mg BID PEG 1/19/18 21:00 01/16/18 08:58 (Apresoline) 50 mg Q8HR PEG 12/12/17 22:00 01/16/18 13:11 (Miralax) 17 gm DAILY PRN PO 12/16/17 18:00 (Percocet 5-325 Mg) 1 tab Q6H PRN PO 12/22/17 15:00 01/16/18 13:12 (Percocet 10-325 Mg) 1 tab Q6H PRN PO 12/22/17 15:00 01/06/18 08:22 (Santyl Oint) 1 applic DAILY TOPICAL 12/25/17 17:00 01/16/18 08:59 (Procardia) 40 mg Q6HR .XX 12/27/17 12:00 01/16/18 13:11 (Lexapro) 10 mg DAILY PEG 01/02/18 17:15 01/16/18 08:58 (Levaquin) 750 mg Q24H PEG 01/03/18 20:00 02/21/18 23:00 01/15/18 21:43 (Flagyl) 500 mg Q8H PO 01/09/18 10:00 02/05/18 23:00 01/16/18 08:58 (Heparin Inj) 5,000 units Q12HR SQ 01/13/18 09:00 01/16/18 08:58 (Lactinex Pkt) 1 gm TID PO 01/12/18 18:00 01/16/18 13:12 (Dakin'S 0.125% Soln) 50 ml DAILY TOPICAL 01/13/18 20:00 01/16/18 08:59 Date of Insertion: Nov 08, 2017 A/P Problem List: (1) Major neurocognitive disorder ICD Code: F03.90 - Unspecified dementia without behavioral disturbance (2) Hemiparesis ICD Code: G81.90 - Hemiplegia, unspecified affecting unspecified side Status: Acute (3) Intracranial hemorrhage ICD Code: I62.9 - Nontraumatic intracranial hemorrhage, unspecified Status: Chronic (4) Aphasia ICD Code: R47.01 - Aphasia Assessment and Plan 62-year-old female with history of hemorrhagic stroke and resulting neurocognitive decline. Status post hemorrhagic CVA, new acute and subacute stroke with chronic right hemiplegia and aphasia. Questionable new facial droop on 01/10; Brain MRI 01/11 showed acute to subacute left thalamic infarct with mild hemorrhagic component in patient with previous history of relatively large left thalamic CVA Neuro and neurosurgery consulted; no surgical intervention needed. Agreed to pharmacologic prophylaxis Facial droop improved UTI Ctx growing Enterobacter aerogenes. Patient received Levaquin x 14 days (01/03-) Infectious disease suspects Cruz related infection Pt remains afebrile Vomiting Resolved Zofran PRN Stage IV sacral pressure ulcer MRI showing bony edema and marrow replacement concerning for osteomyelitis; ID following Wound care following, S/P bedside debridement 01/11 History of hemorrhagic CVA Continue PT, OT, and ST Poor prognosis. Patient does not participate well with therapy Palliative care following Dysphagia Due to hemorrhagic stroke Status post PEG placement on 05/09/17 Continue tube feedings HTN Continue nifedipine 40 mg Q6H, Apresoline 50 mg Q6H, Metoprolol 100 mg BID, HCTZ 25 mg Daily Vasotec IV PRN, Clonidine PRN Hyperglycemia Glucerna for tube feeds Follow blood sugars intermittently Xeroderma on bilateral feet Lac-Hydrin 12% Lotion continued Depression Continue Lexapro 10 mg via PEG daily Nutrition Tube feeds changed to Glucerna 1.5 , bolus feeding with Tyshawn DVT Prophylaxis Heparin (cleared by neurosurgery) Discharge Planning Patient was homeless prior to admit Poor access for inpatient rehabilitation Family desires aggressive measures for therapy and placement Independent funding unavailable for placement Long-term prognosis is poor No significant capacity for regaining full functionality Palliative care following Myra Sifuentes PA-C Jan 16, 2018 2:29 pm
[2018-01-16 15:24] VITALS: PULSE 82
[2018-01-16 20:00] VITALS: BP 117/83; PULSE 97; RESP 20; TEMP 99.3; O2SAT 100
[2018-01-16] MEDS: LEVOFLOXACIN 750 MG TAB PEG SCH (21:33)
[2018-01-17] VITALS: BP 112/82; PULSE 89; RESP 16; TEMP 99.5; O2SAT 98
[2018-01-17 04:00] VITALS: BP 121/85; PULSE 86; RESP 18; TEMP 99.5; O2SAT 99
[2018-01-17] MEDS: FREE WATER G-TUBE SCH ×5 (06:00→23:10)
[2018-01-17] MEDS: metroNIDAZOLE 500 MG TAB PO SCH ×3 (06:04→16:35)
[2018-01-17] MEDS: NIFEdipine 20 MG CAP SCH ×5 (06:06→23:10)
[2018-01-17] MEDS: hydrALAZINE HCL 100 MG TAB PEG SCH ×3 (06:06→21:02)
[2018-01-17 08:00] VITALS: BP 150/108; PULSE 98; RESP 20; TEMP 99.8; O2SAT 98
[2018-01-17] MEDS: HEPARIN SODIUM - SQ 10,000 UNITS/ML VIAL SQ SCH ×2 (10:27→21:02)
[2018-01-17] MEDS: LANSOPRAZOLE SOLUTAB 30 MG TAB G-TUBE SCH (10:27)
[2018-01-17] MEDS: ESCITALOPRAM OXALATE 10 MG TAB PEG SCH (10:27)
[2018-01-17] MEDS: LACTOBACILLUS ACIDOPHILUS 1 GM PACKET PO SCH ×3 (10:27→16:35)
[2018-01-17] MEDS: HYDROCHLOROTHIAZIDE 25 MG TAB PO SCH (10:27)
[2018-01-17] MEDS: oxyCODONE/ACETAMINOPHEN 5 MG/325 MG TAB PO PRN ×2 (10:28→16:35)
[2018-01-17] MEDS: LACTIC ACID (AMMONIUM LACTATE) 12% LOTION 225 GM BTL TOPICAL SCH ×3 (10:28→21:00)
[2018-01-17 12:00] VITALS: BP 148/84; PULSE 84; RESP 18; TEMP 99.5; O2SAT 98
[2018-01-17] MEDS: METOPROLOL TARTRATE 25 MG TAB PEG SCH ×2 (12:00→21:02)
[2018-01-17] MEDS: SODIUM HYPOCHLORITE 0.125% 500 ML BTL TOPICAL SCH (12:01)
[2018-01-17] MEDS: COLLAGENASE OINT 30 GM TUBE TOPICAL SCH (12:01)
--- NOTE | 2018-01-17 13:50 | HHI.PR ---
Subjective Remarks Follow up for CVA, UTI. The patient is seen lying in bed. She remains nonverbal mostly, but did vocalize incomprehensible sounds when asked to tell me her name. She also appeared to smile today, but did not open mouth. Will close eyes and move left arm, squeeze hand. Attempts to move right arm with slight movement. Discussed with RN, no acute concerns. Objective Vitals Vital Signs Date Time Temp Pulse Resp B/P (MAP) Pulse Ox O2 Delivery O2 Flow Rate FiO2 01/17/18 12:00 99.5 84 18 148/84 (105) 98 01/17/18 11:30 18 01/17/18 08:00 99.8 98 20 150/108 (122) 98 01/17/18 04:00 99.5 86 18 121/85 (97) 99 01/17/18 00:00 99.5 89 16 112/82 (92) 98 01/16/18 20:00 99.3 97 20 117/83 (94) 100 01/16/18 15:24 82 I/O 01/16/18 01/16/18 01/16/18 01/17/18 01/17/18 01/17/18 07:00 15:00 23:00 07:00 15:00 23:00 Intake Total 550 ml 1260 ml Output Total 300 ml 350 ml 10 ml Balance 250 ml 910 ml -10 ml Tube Feeding 250 ml 960 ml Other 300 ml 300 ml Output Urine Total 300 ml 350 ml 10 ml # Bowel Movements 1 1 Objective Remarks GENERAL: Thin female laying in bed. Nonverbal. SKIN: Has large stage IV sacral ulcer; not visualized today 01/17 HEAD: Normocephalic. EYES: No scleral icterus. No injection or drainage. NECK: Supple, trachea midline. CARDIOVASCULAR: Regular rate and rhythm. No murmur appreciated. RESPIRATORY: Breath sounds equal bilaterally. No accessory muscle use. GASTROINTESTINAL: Abdomen soft, non-tender, nondistended. EXTREMITIES: No cyanosis or edema. NEUROLOGICAL: Awake, nonverbal. Responds to commands such as closes eyes and hand acquisitions librarian. Environmental Protection Geologist strength L>R. No obvious facial droop. Procedures Peg Tube placed 05/08/17 (Dr. De Los Santos) Medications and IVs Current Medications Medications (Trade) Dose Ordered Sig/Reymundo Route Start Time Stop Time Status Last Admin (Dulcolax Supp) 10 mg DAILY PRN RECTAL 04/10/17 22:00 (Lac-Hydrin 12% Lotion) 1 applic BID TOPICAL 05/04/17 14:00 01/17/18 12:01 (Prevacid Odt) 30 mg DAILY G-TUBE 05/10/17 09:00 01/17/18 10:27 (Apresoline) 25 mg Q4HR PRN PEG 05/18/17 14:45 11/04/17 14:28 (Zofran Liq) 4 mg Q6H PRN PEG 05/26/17 10:00 01/14/18 08:51 (Tylenol) 650 mg Q6H PRN PEG 06/16/17 16:00 Future Hold 10/17/17 19:29 (Senna Liq) 8.8 mg DAILY PEG 06/29/17 09:00 Future Hold 10/17/17 10:02 (Hydrodiuril) 25 mg DAILY PO 09/27/17 09:15 Future hold 01/17/18 10:27 (Pill Splitter) 1 ea UNSCH PRN OTHER 10/17/17 17:45 12/08/17 20:45 (Free Water) 150 ml Q6HR G-TUBE 10/19/17 12:00 01/17/18 12:02 (NS Flush) 2 ml UNSCH PRN IV FLUSH 11/17/17 10:15 01/04/18 08:21 (Lopressor) 25 mg BID PEG 11/24/17 21:00 01/17/18 12:00 (Apresoline) 50 mg Q8HR PEG 12/12/17 22:00 01/17/18 12:52 (Miralax) 17 gm DAILY PRN PO 12/16/17 18:00 (Percocet 5-325 Mg) 1 tab Q6H PRN PO 12/22/17 15:00 01/17/18 10:28 (Percocet 10-325 Mg) 1 tab Q6H PRN PO 12/22/17 15:00 01/06/18 08:22 (Santyl Oint) 1 applic DAILY TOPICAL 12/25/17 17:00 01/17/18 12:01 (Procardia) 40 mg Q6HR .XX 12/27/17 12:00 01/17/18 10:29 (Lexapro) 10 mg DAILY PEG 01/02/18 17:15 01/17/18 10:27 (Flagyl) 500 mg Q8H PO 01/09/18 10:00 02/05/18 23:00 01/17/18 10:27 (Heparin Inj) 5,000 units Q12HR SQ 01/13/18 09:00 01/17/18 10:27 (Lactinex Pkt) 1 gm TID PO 01/12/18 18:00 01/17/18 12:02 (Dakin'S 0.125% Soln) 50 ml DAILY TOPICAL 01/13/18 20:00 01/17/18 12:01 A/P Problem List: (1) Major neurocognitive disorder ICD Code: F03.90 - Unspecified dementia without behavioral disturbance (2) Hemiparesis ICD Code: G81.90 - Hemiplegia, unspecified affecting unspecified side Status: Acute (3) Intracranial hemorrhage ICD Code: I62.9 - Nontraumatic intracranial hemorrhage, unspecified Status: Chronic (4) Aphasia ICD Code: R47.01 - Aphasia Assessment and Plan 62-year-old female with history of hemorrhagic stroke and resulting neurocognitive decline. Status post hemorrhagic CVA, new acute and subacute stroke with chronic right hemiplegia and aphasia. Questionable new facial droop on 01/10; Brain MRI 01/11 showed acute to subacute left thalamic infarct with mild hemorrhagic component in patient with previous history of relatively large left thalamic CVA Neuro and neurosurgery consulted; no surgical intervention needed. Agreed to pharmacologic prophylaxis Facial droop improved UTI Ctx growing Enterobacter aerogenes. Patient received Levaquin x 14 days (01/03-) Infectious disease suspects Cruz related infection Pt remains afebrile Vomiting Resolved Zofran PRN Stage IV sacral pressure ulcer MRI showing bony edema and marrow replacement concerning for osteomyelitis; ID following Wound care following, S/P bedside debridement 01/11 History of hemorrhagic CVA Continue PT, OT, and ST Poor prognosis. Patient does not participate well with therapy Palliative care following Dysphagia Due to hemorrhagic stroke Status post PEG placement on 05/09/17 Continue tube feedings HTN Continue nifedipine 40 mg Q6H, Apresoline 50 mg Q6H, Metoprolol 100 mg BID, HCTZ 25 mg Daily Vasotec IV PRN, Clonidine PRN Hyperglycemia Glucerna for tube feeds Follow blood sugars intermittently Xeroderma on bilateral feet Lac-Hydrin 12% Lotion continued Depression Continue Lexapro 10 mg via PEG daily Nutrition Tube feeds changed to Glucerna 1.5 , bolus feeding with Tyshawn DVT Prophylaxis Heparin (cleared by neurosurgery) Discharge Planning Patient was homeless prior to admit Poor access for inpatient rehabilitation Family desires aggressive measures for therapy and placement Independent funding unavailable for placement Long-term prognosis is poor No significant capacity for regaining full functionality Palliative care following Myra Sifuentes PA-C Jan 17, 2018 13:50
[2018-01-17 18:54] LABS: BACTERIA, URINE MOD /hpf; BILIRUBIN, URINE NEG (NEG); BLOOD, URINE SMALL (NEG); GLUCOSE,URINE NEG (NEG); HYALINE CAST, URINE 9 /lpf (RARE); KETONE, URINE NEG (NEG); NITRITE,URINE NEG (NEG); PH, URINE 7.5 (5.0-8.5); SQUAMOUS EPITHELIAL CELL URINE 1 /hpf (0-5); TRANSITIONAL EPI CELLS, URINE 1 /hpf; URINE COLOR YELLOW (YELLW/STRAW); URINE LEUKOCYTE ESTERASE LARGE (NEG)
[2018-01-17 18:54] LABS: BASOPHIL # 0.1 TH/MM3 (0-0.2); BASOPHIL % 0.8 % (0.0-2.0); EOSINOPHIL # 0.2 TH/MM3 (0-0.4); EOSINOPHIL % 3.7 % (0.0-4.0); HEMATOCRIT 35.7 % (35.0-46.0); HEMOGLOBIN 11.6 GM/DL (11.6-15.3); LYMPH % 20.5 % (9.0-44.0); LYMPHOCYTE # 1.4 TH/MM3 (1.0-4.8); MEAN CELL VOLUME 83.3 FL (80.0-100.0); MEAN CORPUSCULAR HEMOGLOBIN 27.1 PG (27.0-34.0); MEAN CORPUSCULAR HGB CONC 32.5 % (32.0-36.0); MEAN PLATELET VOLUME 8.4 FL (7.0-11.0); MONO % 14.7 % (0.0-8.0); NEUT % 60.3 % (16.0-70.0); PLATELET COUNT 394 TH/MM3 (150-450); RED BLOOD COUNT 4.28 MIL/MM3 (4.00-5.30); RED CELL DISTRIBUTION WIDTH 17.1 % (11.6-17.2); WHITE BLOOD COUNT 6.6 TH/MM3 (4.0-11.0)
[2018-01-17 19:00] LABS: BICARBONATE 25.4 MEQ/L (21.0-32.0); CALCIUM 9.3 MG/DL (8.5-10.1); CREATININE 0.43 MG/DL (0.50-1.00)
[2018-01-17 20:00] VITALS: BP 126/82; PULSE 93; RESP 18; TEMP 97.2; O2SAT 99
[2018-01-18] VITALS: BP 109/76; PULSE 78; RESP 18; TEMP 97.1; O2SAT 100
[2018-01-18] MEDS: metroNIDAZOLE 500 MG TAB PO SCH ×3 (01:45→18:00)
[2018-01-18 04:39] VITALS: BP 119/90; PULSE 67; RESP 20; TEMP 98.1; O2SAT 100
[2018-01-18] MEDS: FREE WATER G-TUBE SCH ×4 (06:00→23:45)
[2018-01-18] MEDS: NIFEdipine 20 MG CAP SCH ×4 (06:29→23:45)
[2018-01-18] MEDS: hydrALAZINE HCL 100 MG TAB PEG SCH ×3 (06:29→22:01)
[2018-01-18] MEDS: LANSOPRAZOLE SOLUTAB 30 MG TAB G-TUBE SCH (07:50)
[2018-01-18] MEDS: METOPROLOL TARTRATE 25 MG TAB PEG SCH ×2 (07:51→21:00)
[2018-01-18] MEDS: HYDROCHLOROTHIAZIDE 25 MG TAB PO SCH (07:51)
[2018-01-18] MEDS: LACTOBACILLUS ACIDOPHILUS 1 GM PACKET PO SCH ×3 (07:51→18:00)
[2018-01-18] MEDS: ESCITALOPRAM OXALATE 10 MG TAB PEG SCH (07:51)
[2018-01-18] MEDS: HEPARIN SODIUM - SQ 10,000 UNITS/ML VIAL SQ SCH ×2 (07:52→21:00)
[2018-01-18 08:00] VITALS: BP 148/96; PULSE 61; RESP 14; TEMP 99; O2SAT 98
[2018-01-18] MEDS: SODIUM HYPOCHLORITE 0.125% 500 ML BTL TOPICAL SCH (08:29)
[2018-01-18] MEDS: COLLAGENASE OINT 30 GM TUBE TOPICAL SCH (08:30)
[2018-01-18] MEDS: LACTIC ACID (AMMONIUM LACTATE) 12% LOTION 225 GM BTL TOPICAL SCH ×2 (08:30→21:01)
--- NOTE | 2018-01-18 09:00 | PD.WOU.PN ---
Patient Intake Chief Complaint Sacral ulcer Consult Requested by Wound care nurses Reason for Consult sacrococcygeal ulcer Primary Care Physician History of Present Illness Patient seen today with the woundcare team Yon Caruso RNWCC and Romelia Liz [facility] for follow-up of her sacrococcygeal wound. Patient remains nonverbal as she status post hemorrhagic stroke with sequela of dementia. Coded Allergies: No Known Allergies (Unverified , 09/05/16) Preferred Language to Discuss: [place] Barriers to Learning: Cognitive/Written, Cognitive/Verbal Vital Signs Date Time Temp Pulse Resp B/P (MAP) Pulse Ox O2 Delivery O2 Flow Rate FiO2 01/18/18 08:00 99.0 61 14 148/96 (113) 98 01/18/18 04:39 98.1 67 20 119/90 (100) 100 01/18/18 00:00 97.1 78 18 109/76 (87) 100 01/17/18 20:00 97.2 93 18 126/82 (97) 99 01/17/18 17:40 20 01/17/18 12:00 99.5 84 18 148/84 (105) 98 Pain scale used: FLACC nonverbal scale Pain score: 0 Past, Family & Social History Past Medical History Gastrointestinal: REPORTS HX OF: Other GI history (PEG tube in place) Alcohol Use Alcohol Intake: None Review of Systems Integumentary: COMPLAINS OF: Slow to heal after cuts Neurological: COMPLAINS OF: CVA/Stroke Wound Assessment Bedbound Wound Information - Wound One 01/10/18: Wound dimensions this week are: [id number] with undermining from 7 to 4:00 with maximum depth at 12:00 measuring 3.5 cm. There is still pink tissue with slough and black necrotic tissue with bone exposed. Wound was sharply debrided to deep subcutaneous tissue until a good bleeding base was obtained and wound detritus and wound debris removed. This was then irrigated and then dried. Cement was placed in the wound bed with Maxorb to likely plaque to the wound and covered with border gauze. Patient was also repositioned so that she was offloaded. 01/18/2018: Wound dimensions this week are 4.2 cm x 1.5 cm x 2.4 cm with undermining from 7 to 4:00 with max depth at 12:00 measuring 2.8 cm. This is now a stage IV ulcer and there is some improvement noted with respect to the dimensions. Wound was selectively debrided to remove wound debris as well as slough until a good bleeding base was obtained. It was then cleaned with normal saline and dressed with Santyl to wound base and quarter strength Dakin moistened fluffed gauze lightly packed in the wound and then covered with border gauze. Patient was repositioned to the left side for offloading. Instructions submitted. Wound Location: Sacrcoccygeal ulcer Wound Type: Pressure Ulcer Classification: FT- full thickness Pressure Stagin Wound Length: 4.2cm Wound Width: 1.5cm Wound Depth: 2.4cm Undermining @ O'clock: 7-4 oclock with max depth at 12 oclock of 2.8cm Photo Taken: No Exudate: Moderate Exudate Type: Serosanguineous Debridement: Yes Fibrin Amount: Mild Granulation Tissue Color: None Granulation Tissue Texture: N/A Exposed: Bone Eschar: No Odor: No Periwound Appearance: FINDINGS: Normal Dressing Notes: santyl, skin prep, 1/4 strength dakins Physical Exam Remarks GENERAL: Well-nourished, well-developed patient. SKIN: Warm and dry.See wound assessment notes HEAD: Normocephalic. EYES: No scleral icterus. No injection or drainage. NECK: Supple, trachea midline. No JVD or lymphadenopathy. CARDIOVASCULAR: Regular rate and rhythm without murmurs, gallops, or rubs. RESPIRATORY: Breath sounds equal bilaterally. No accessory muscle use. GASTROINTESTINAL: Abdomen soft, non-tender, nondistended. PEG tube in place EXTREMITIES: No cyanosis, or edema. NEUROLOGICAL: Awake, non verbal Lab and Radiology Results Radiology Last Impressions Brain MRI 01/11/18 0000 Signed Impressions: Service Date/Time: January 08:45 - CONCLUSION: 1. Focal area of restricted diffusion in the left thalmus characteristic of an acute to subacute infarct. 2. GRE images demonstrate subacute hemorrhage associated with the infarct in the left thalamus. 3. GRE images also demonstrate punctate areas of microhemorrhage noted in the deep right mid parietal lobe, right occipital lobe and bilateral basal ganglia regions, left greater than right. 4. Diffuse bilateral cortical atrophy and chronic white matter changes. Luciano Morales MD Head CT 01/10/18 0000 Signed Impressions: Service Date/Time: Wednesday, January 10, 2018 10:47 - CONCLUSION: Atrophy, chronic small vessel ischemic change, and prior areas of infarction. No acute intracranial abnormality. Phillip Patel Jr., MD Abdomen/Pelvis CT 01/09/18 0000 Signed Impressions: Service Date/Time: Tuesday, January 09, 2018 18:48 - CONCLUSION: 1. There is a sacral decubitus wound/ulcer which extends to the sacrum. Prior MRI demonstrated abnormal sacrum in the inferior aspect of the sacrum and coccyx. There is also presacral edema. These findings are highly suspicious for osteomyelitis. 2. Nonacute findings include 3 mm nonobstructing right renal stone and multi-fibroid uterus. Hu Cuenca MD Sacrum/Coccyx MRI 01/06/18 0000 Signed Impressions: Service Date/Time: Saturday, January 06, 2018 08:30 - CONCLUSION: Large decubitus ulcer posteriorly with not only bony edema and marrow replacement concerning for osteomyelitis but it extends to the presacral fat is well where there is marked enhancement and fluid on the T2-weighted sequences. The coccygeal involvement is at least 3.5 cm in length. Eliud Du MD Chest X-Ray 01/01/18 0000 Signed Impressions: Service Date/Time: Monday, January 01, 2018 20:33 - CONCLUSION: 1. No acute findings. Adi Quarles MD Abdomen X-Ray 12/13/17 0000 Signed Impressions: Service Date/Time: Wednesday, December 13, 2017 14:17 - CONCLUSION: PEG tube in stomach.. Harry Dumas MD FACR Upper Extremity Ultrasound 11/06/17 0000 Signed Impressions: Service Date/Time: Monday, November 06, 2017 14:17 - CONCLUSION: Normal examination. Kelby Perze MD Pelvis CT 10/13/17 0000 Signed Impressions: Service Date/Time: Friday, October 13, 2017 12:02 - CONCLUSION: 1. Decubitus ulcer with small abscess in the right posterior perineal region measuring 3.1 x 4.6 cm. There is also a small abscess posterior and to the left of the rectum measuring 3.2 x 2.3 cm. Jann Weber MD Neck CTA 04/10/17 0000 Signed Impressions: Service Date/Time: Monday, April 10, 2017 22:28 - CONCLUSION: The internal carotid arteries are normal bilaterally. No significant atherosclerotic disease is noted. Eliud Du MD Head CTA 04/10/17 0000 Signed Impressions: Service Date/Time: Monday, April 10, 2017 22:50 - CONCLUSION: Mild dilatation of the basilar tip without discrete aneurysm. Some narrowing of the left middle cerebral branch after the bifurcation. Prominent left thalamic hemorrhage. Eliud Du MD Assessment/Plan Problem List: (1) Stage 4 decubitus ulcer Status: Chronic Plan: This is now a stage IV ulcer and there is some improvement noted with respect to the dimensions. Wound was selectively debrided to remove wound debris as well as slough until a good bleeding base was obtained. It was then cleaned with normal saline and dressed with Santyl to wound base and quarter strength Dakin moistened fluffed gauze lightly packed in the wound and then covered with border gauze. Patient was repositioned to the left side for offloading. Instructions submitted. (2) Osteomyelitis Status: Chronic Plan: Currently on antibiotics. ID following (3) Dementia Status: Chronic Plan: Sequela of hemorrhagic stroke. Neurosurgery following. (4) Hemorrhagic stroke Plan: Patient status post hemorrhagic stroke in April 2017. Now with residual dementia and neuro cognitive dysfunction. Followed by neurosurgery. Problem Qualifiers (1) Stage 4 decubitus ulcer: Qualified Codes: L89.154 - Pressure ulcer of sacral region, stage 4 Micaela Morales MD Jan 18, 2018 09:00
--- NOTE | 2018-01-18 11:02 | PD.WCN.NOT ---
Wound Consult Description: Follow up of sacral wound Communicated with: Gloria RAINES Recommendation: Please refer to wound care orders Additional Information: Patient was seen today on 4th floor exterminator helper care unit by senior copywriterRomelia RNWCC and . Patient alert in bed nonverbal.Patient required 2 person assist to reposition patient Right side.Dressing removed from coccyx to reveal improved stage 4 pressure injury measuring 4.2cm x 1.5cm x 2.4cm with undermining from 7-4 O'clock with max depth @ 12 O'clock measuring 2.8cm.Wound base is ~50% beefy red non granular tissue ~30% fascia ~10% yellow slough ~10% bone .Wound cleansed with normal saline Santyl 2mm thick to wound base and quarter strength Dakin moist fluffed gauze lightly packed in wound then covered with boarder gauze.dressing signed and dated .Patient was repositioned to left side for offloading. Yon Caruso [facility] Jan 18, 2018 11:02
--- NOTE | 2018-01-18 16:40 | HHI.PR ---
Subjective Remarks Patient's PEG tube was out, blood pressure increasing. Need to insert PEG tube , for administration of medicines, cannot reach to family for consent. Objective Vitals Vital Signs Date Time Temp Pulse Resp B/P (MAP) Pulse Ox O2 Delivery O2 Flow Rate FiO2 01/18/18 08:00 99.0 61 14 148/96 (113) 98 01/18/18 04:39 98.1 67 20 119/90 (100) 100 01/18/18 00:00 97.1 78 18 109/76 (87) 100 01/17/18 20:00 97.2 93 18 126/82 (97) 99 01/17/18 17:40 20 I/O 01/17/18 01/17/18 01/17/18 01/18/18 01/18/18 01/18/18 07:00 15:00 23:00 07:00 15:00 23:00 Intake Total 1800 ml 540 ml Output Total 10 ml 300 ml 550 ml Balance -10 ml 1500 ml -10 ml Tube Feeding 1500 ml 240 ml Other 300 ml 300 ml Output Urine Total 10 ml 300 ml 550 ml # Bowel Movements 2 1 Result Diagram: 01/17/18181301/17/181813 Objective Remarks GENERAL: Patient lying in bed, appears comfortable. Nods yes/no to questions. EYES: No scleral icterus. No injection or drainage. NECK: Supple, trachea midline. No JVD. CARDIOVASCULAR: Regular rate and rhythm without murmurs, gallops, or rubs. RESPIRATORY: Breath sounds equal bilaterally. No accessory muscle use. GASTROINTESTINAL: Abdomen soft, non-tender, nondistended. PEG tube is out. PEG tube site is clean. MUSCULOSKELETAL: No cyanosis, or edema. Awake, aphasic. Follows some commands, good handgrip, close her eyes on command. Positive for right facial droop. Increased tone on the right arm and right leg, 3/5, 4/5 on the left. Procedures Peg Tube placed 05/08/17 (Dr. De Los Santos) A/P Problem List: (1) Major neurocognitive disorder ICD Code: F03.90 - Unspecified dementia without behavioral disturbance (2) Hemiparesis ICD Code: G81.90 - Hemiplegia, unspecified affecting unspecified side Status: Acute (3) Intracranial hemorrhage ICD Code: I62.9 - Nontraumatic intracranial hemorrhage, unspecified Status: Chronic (4) Aphasia ICD Code: R47.01 - Aphasia Assessment and Plan 62-year-old female with history of hemorrhagic stroke and resulting neurocognitive decline. Status post hemorrhagic CVA, new acute and subacute stroke with chronic right hemiplegia and aphasia. Questionable new facial droop on 01/10; Brain MRI 01/11 showed acute to subacute left thalamic infarct with mild hemorrhagic component in patient with previous history of relatively large left thalamic CVA Neuro and neurosurgery consulted; no surgical intervention needed. Agreed to pharmacologic prophylaxis Facial droop improved UTI Ctx growing Enterobacter aerogenes. Patient received Levaquin x 14 days (01/03-) Infectious disease suspects Cruz related infection Pt remains afebrile Vomiting Resolved Zofran PRN Stage IV sacral pressure ulcer MRI showing bony edema and marrow replacement concerning for osteomyelitis; ID following Wound care following, S/P bedside debridement 01/11 History of hemorrhagic CVA Continue PT, OT, and ST Poor prognosis. Patient does not participate well with therapy Palliative care following Dysphagia Due to hemorrhagic stroke Status post PEG placement on 05/09/17, PEG tube out 01/18/2018, consult invasive radiology for PEG tube reinsertion, medically necessary. Continue tube feedings HTN Continue nifedipine 40 mg Q6H, Apresoline 50 mg Q6H, Metoprolol 100 mg BID, HCTZ 25 mg Daily Vasotec IV PRN, Clonidine PRN Hyperglycemia Glucerna for tube feeds Follow blood sugars intermittently Xeroderma on bilateral feet Lac-Hydrin 12% Lotion continued Depression Continue Lexapro 10 mg via PEG daily Nutrition Tube feeds changed to Glucerna 1.5 , bolus feeding with Tyshawn DVT Prophylaxis Heparin (cleared by neurosurgery) Discharge Planning Patient was homeless prior to admit Poor access for inpatient rehabilitation Family desires aggressive measures for therapy and placement Independent funding unavailable for placement Long-term prognosis is poor No significant capacity for regaining full functionality Palliative care following Discharge Planning Patient was homeless prior to admit Poor access for inpatient rehabilitation Family desires aggressive measures for therapy and placement Independent funding unavailable for placement Long-term prognosis is poor No significant capacity for regaining full functionality Palliative care following Very poor prognosis. Patient does not display any meaningful involvement with therapy. Difficult DC. Awaiting placement Nolvia Salomon MD Jan 18, 2018 16:40
--- NOTE | 2018-01-18 17:31 | PD.RAD ---
Post Procedure Progress Note Pre Procedure Diagnosis: (1) Major neurocognitive disorder (2) Aphasia Post Procedure Diagnosis: (1) Major neurocognitive disorder (2) Aphasia Procedure Date: Jan 18, 2018 Supervising Radiologist: Timmy Dumas Estimated blood loss: 2cc Anesthesia: Local Plan of Activity Patient to Unit: Nursing Unit Patient Condition: Poor Additional Comments: G tube replace through the existing tract. Tube verified to be in good position OK for use See PACS Report for procedural detail/treatment Timmy Dumas MD Jan 18, 2018 17:31
[2018-01-18] MEDS ORDERED: IOHEXOL 350 MG/ML 50 ML BTL (for RAD DIAG) G-TUBE ONE (17:42)
--- NOTE | 2018-01-18 17:48 | RADRPT ---
EXAM DATE/TIME: 01/18/2018 16:41 [facility] COMPARISON: No previous studies available for comparison. INDICATIONS : Patient with a history of stroke, gastrostomy tube fell out, needs replaced. MEDICAL HISTORY : HTN Intracranial hemorrhage SURGICAL HISTORY : Unknown ENCOUNTER: Initial ACUITY: 1 day PAIN SCORE: Nonresponsive. FLUORO TIME: 1.7 minutes IMAGE SERIES: 1 CONTRAST: 15 cc Omnipaque (iohexol) 350 DEVICE(S): 1.) 18 Fr gastrostomy tube PROCEDURE : 1. Fluoroscopically guided gastrostomy tube placement. 2. Conscious sedation with continuous EKG and oximetry monitoring. The patient is nonresponsive with a history of stroke. The patient's existing gastrostomy tube became dislodged. We have medically necessary consent for replacement from the patient's treating physician . The site was prepped in sterile fashion. Full sterile technique was used, including cap, mask, steri le gloves and gown and a large sterile sheet. Hand hygiene and 2% chlorhexidine and/or betadine/alco hol prep was utilized per protocol for cutaneous antisepsis. The skin and subcutaneous tissues were infiltrated with local anesthetic solution. The existing tract for gastrostomy tube is identified. A 0.035 Glidewire was advanced through the tra ct and down into the stomach. The tract was dilated. An 18 Tamazight peel-away sheath was placed. A new 18 Tamazight gastrostomy tube was advanced over the wire position within the stomach without difficulty. Position within the stomach was confirmed with an injection of contrast. The patient tolerated the procedure well and there were no complications. The patient was sent back to the floor in good condition. CONCLUSION: Uncomplicated gastrostomy tube replacement through an existing tract. Timmy Dumas MD on January 18, 2018 at 17:44 Board Certified Radiologist. This report was verified electronically.
[2018-01-18 18:00] VITALS: BP 136/84; PULSE 89; RESP 16; TEMP 98.4; O2SAT 99
[2018-01-18 20:50] VITALS: BP 155/104; PULSE 101; RESP 20; TEMP 99.4; O2SAT 97
[2018-01-18] MEDS: oxyCODONE/ACETAMINOPHEN 10 MG/325 MG TAB PO PRN (21:00)
[2018-01-19] VITALS: BP 124/87; PULSE 91; RESP 20; TEMP 98.6; O2SAT 97
[2018-01-19] MEDS: metroNIDAZOLE 500 MG TAB PO SCH (02:26)
[2018-01-19 04:41] VITALS: BP 130/99; PULSE 89; RESP 20; TEMP 97.2; O2SAT 99
[2018-01-19] MEDS: NIFEdipine 20 MG CAP SCH (05:37)
[2018-01-19] MEDS: FREE WATER G-TUBE SCH ×4 (05:38→23:13)
[2018-01-19] MEDS: oxyCODONE/ACETAMINOPHEN 10 MG/325 MG TAB PO PRN (05:38)
[2018-01-19] MEDS: hydrALAZINE HCL 100 MG TAB PEG SCH ×3 (05:38→21:03)
[2018-01-19 08:00] VITALS: BP 140/78; PULSE 120; RESP 20; TEMP 97.9; O2SAT 96
[2018-01-19] MEDS ORDERED: POLYETHYLENE GLYCOL 17 GM PKG PEG PRN (09:15)
[2018-01-19] MEDS: LANSOPRAZOLE SOLUTAB 30 MG TAB G-TUBE SCH (09:44)
[2018-01-19] MEDS: metroNIDAZOLE 500 MG TAB PEG SCH ×2 (09:44→16:51)
[2018-01-19] MEDS: HEPARIN SODIUM - SQ 10,000 UNITS/ML VIAL SQ SCH ×2 (09:44→20:00)
[2018-01-19] MEDS: ESCITALOPRAM OXALATE 10 MG TAB PEG SCH (09:44)
[2018-01-19] MEDS: METOPROLOL TARTRATE 25 MG TAB PEG SCH ×2 (09:44→20:00)
[2018-01-19] MEDS: LACTOBACILLUS ACIDOPHILUS 1 GM PACKET PEG SCH ×3 (09:45→16:52)
[2018-01-19] MEDS: HYDROCHLOROTHIAZIDE 25 MG TAB PEG SCH (09:45)
[2018-01-19] MEDS: oxyCODONE/ACETAMINOPHEN 5 MG/325 MG TAB PEG PRN ×2 (09:45→18:21)
[2018-01-19] MEDS: SODIUM HYPOCHLORITE 0.125% 500 ML BTL TOPICAL SCH (09:46)
[2018-01-19] MEDS: COLLAGENASE OINT 30 GM TUBE TOPICAL SCH (09:47)
[2018-01-19] MEDS: LACTIC ACID (AMMONIUM LACTATE) 12% LOTION 225 GM BTL TOPICAL SCH ×2 (09:47→20:03)
[2018-01-19 12:00] VITALS: BP 148/88; PULSE 100; RESP 18; TEMP 98; O2SAT 96
[2018-01-19] MEDS ORDERED: LEVOFLOXACIN 750 MG TAB PO SCH (12:00)
[2018-01-19] MEDS: NIFEdipine 20 MG CAP PEG SCH ×3 (12:13→23:19)
--- NOTE | 2018-01-19 14:55 | HHI.PR ---
Subjective Remarks No overnight events, no fever. PEG tube reinserted yesterday. Cruz catheter changed Monday. Objective Vitals Vital Signs Date Time Temp Pulse Resp B/P (MAP) Pulse Ox O2 Delivery O2 Flow Rate FiO2 01/19/18 08:00 97.9 120 20 140/78 (98) 96 01/19/18 06:35 20 01/19/18 04:41 97.2 89 20 130/99 (109) 99 01/19/18 00:00 98.6 91 20 124/87 (99) 97 01/18/18 20:50 99.4 101 20 155/104 (121) 97 01/18/18 18:00 98.4 89 16 136/84 (101) 99 I/O 01/18/18 01/18/18 01/18/18 01/19/18 01/19/18 01/19/18 07:00 15:00 23:00 07:00 15:00 23:00 Intake Total 540 ml 0 ml 600 ml Output Total 550 ml 250.0 ml 300 ml Balance -10 ml -250.0 ml 300 ml Intake Oral 0 ml Tube Feeding 240 ml 0 ml 0 ml Other 300 ml 0 ml 600 ml Output Urine Total 550 ml 250 ml 300 ml Tube Feeding Residual Discard 0 ml # Bowel Movements 1 2 1 Result Diagram: 01/17/18181301/17/181813 Objective Remarks GENERAL: Patient lying in bed, appears comfortable. Nods yes/no to questions. EYES: No scleral icterus. No injection or drainage. NECK: Supple, trachea midline. No JVD. CARDIOVASCULAR: Regular rate and rhythm without murmurs, gallops, or rubs. RESPIRATORY: Breath sounds equal bilaterally. No accessory muscle use. GASTROINTESTINAL: Abdomen soft, non-tender, nondistended. PEG tube in place. Cruz catheter with yellow urine. MUSCULOSKELETAL: No cyanosis, or edema. Awake, aphasic. Still follows some commands, good handgrip, close her eyes on command. Positive for right facial droop. Increased tone on the right arm and right leg, 3/5, 4/5 on the left. Procedures Peg Tube placed 05/08/17 (Dr. De Los Santos) A/P Problem List: (1) Major neurocognitive disorder ICD Code: F03.90 - Unspecified dementia without behavioral disturbance (2) Hemiparesis ICD Code: G81.90 - Hemiplegia, unspecified affecting unspecified side Status: Acute (3) Intracranial hemorrhage ICD Code: I62.9 - Nontraumatic intracranial hemorrhage, unspecified Status: Chronic (4) Aphasia ICD Code: R47.01 - Aphasia Assessment and Plan 62-year-old female with history of hemorrhagic stroke and resulting neurocognitive decline. Status post hemorrhagic CVA, new acute and subacute stroke with chronic right hemiplegia and aphasia. Questionable new facial droop on 01/10; Brain MRI 01/11 showed acute to subacute left thalamic infarct with mild hemorrhagic component in patient with previous history of relatively large left thalamic CVA Neuro and neurosurgery consulted; no surgical intervention needed. Agreed to pharmacologic prophylaxis Facial droop improved UTI Ctx growing Enterobacter aerogenes. Patient received Levaquin x 14 days (01/03-) Repeat urinalysis showed Yenifer anticoagulates negative staph. We will start Diflucan today, still on Levaquin (for sacral wound) replace Cruz catheter after Diflucan started Pt remains afebrile Vomiting Resolved Zofran PRN Stage IV sacral pressure ulcer MRI showing bony edema and marrow replacement concerning for osteomyelitis; ID following, continue Levaquin and Flagyl until February Wound care following, S/P bedside debridement 01/11 History of hemorrhagic CVA Continue PT, OT, and ST Poor prognosis. Patient does not participate well with therapy Palliative care following Dysphagia Due to hemorrhagic stroke Status post PEG placement on 05/09/17, PEG tube out 01/18/2018, consult invasive radiology for PEG tube reinsertion, medically necessary. Continue tube feedings HTN Continue nifedipine 40 mg Q6H, Apresoline 50 mg Q6H, Metoprolol 100 mg BID, HCTZ 25 mg Daily Vasotec IV PRN, Clonidine PRN Hyperglycemia Glucerna for tube feeds Follow blood sugars intermittently Xeroderma on bilateral feet Lac-Hydrin 12% Lotion continued Depression Continue Lexapro 10 mg via PEG daily Nutrition Tube feeds changed to Glucerna 1.5 , bolus feeding with Tyshawn DVT Prophylaxis Heparin (cleared by neurosurgery) Discharge Planning Patient was homeless prior to admit Poor access for inpatient rehabilitation Family desires aggressive measures for therapy and placement Independent funding unavailable for placement Long-term prognosis is poor No significant capacity for regaining full functionality Palliative care following Discharge Planning Patient was homeless prior to admit Poor access for inpatient rehabilitation Family desires aggressive measures for therapy and placement Independent funding unavailable for placement Long-term prognosis is poor No significant capacity for regaining full functionality Palliative care following Very poor prognosis. Patient does not display any meaningful involvement with therapy. Difficult DC. Awaiting placement Nolvia Salomon MD Jan 19, 2018 14:55
[2018-01-19] MEDS ORDERED: FLUCONAZOLE 200 MG TAB PO ONE (15:00)
[2018-01-19 16:00] VITALS: BP 158/110; PULSE 120; RESP 20; TEMP 97.9; O2SAT 96
[2018-01-19] MEDS: LACTOBACILLUS ACIDOPHILUS TAB PEG SCH (18:20)
[2018-01-19 20:00] VITALS: BP 100/71; PULSE 120; RESP 20; TEMP 99.2; O2SAT 95
[2018-01-19] MEDS: oxyCODONE/ACETAMINOPHEN 10 MG/325 MG TAB PEG PRN (20:01)
--- NOTE | 2018-01-19 21:29 | RADRPT ---
EXAM DATE/TIME: 01/19/2018 17:12 [facility] COMPARISON: CHEST SINGLE AP, January 01, 2018, 20:33. CT ABDOMEN & PELVIS W CONTRAST, January 09, 2018, 18:48. INDICATIONS : Shortness of breath. MEDICAL HISTORY : Hypertension. SURGICAL HISTORY : Peg tube ENCOUNTER: Initial ACUITY: 1 day PAIN SCORE: 0/10 LOCATION: Bilateral chest FINDINGS: Trace left base atelectasis. No pleural effusion. No pneumothorax. Heart size within normal limits. CONCLUSION: Trace left base atelectasis. Hu Henderson MD on January 19, 2018 at 21:26 Board Certified Radiologist. This report was verified electronically.
[2018-01-20] VITALS (18 sets, daily range): BP systolic 70–122; BP diastolic 48–90; PULSE 75–103; RESP 16–22; TEMP 97.4–98.8; O2SAT 94–98
[2018-01-20] MEDS: metroNIDAZOLE 500 MG TAB PEG SCH ×3 (00:51→17:33)
[2018-01-20] MEDS: FREE WATER G-TUBE SCH ×4 (06:00→23:14)
[2018-01-20] MEDS: hydrALAZINE HCL 100 MG TAB PEG SCH ×3 (06:36→21:59)
[2018-01-20] MEDS: NIFEdipine 20 MG CAP PEG SCH ×3 (06:36→17:33)
[2018-01-20] MEDS: oxyCODONE/ACETAMINOPHEN 10 MG/325 MG TAB PEG PRN (06:37)
--- NOTE | 2018-01-20 08:59 | HHI.PR ---
Subjective Remarks RN CONCERNED ABOUT WORSENING BLOOD PRESSURE-HYPOTENSION AND FACIAL DROOP WILL GIVE IV FLUIDS NS AT 84ML/HR WILL GET CAT SCAN OF BRAIN HAS DECREASED URINE OUTPUT MONITOR BLOOD PRESSURES AND URINE OUTPUT Objective Vitals Vital Signs Date Time Temp Pulse Resp B/P (MAP) Pulse Ox O2 Delivery O2 Flow Rate FiO2 01/20/18 08:30 100 20 90/56 (67) 97 Manual Cuff/Auscultation 01/20/18 08:00 94 16 90/50 (63) 97 01/20/18 07:50 92 16 76/52 (60) 98 01/20/18 07:45 90 16 80/50 (60) 96 01/20/18 07:30 90 16 86/56 (66) 97 01/20/18 07:15 94 16 88/58 (68) 94 01/20/18 07:00 90 16 70/48 (55) 98 01/20/18 06:45 98.1 100 16 87/57 (67) 98 01/20/18 04:12 97.4 75 20 110/86 (94) 95 01/20/18 00:00 97.9 88 20 111/90 (97) 97 01/19/18 20:00 99.2 120 20 100/71 (81) 95 01/19/18 19:12 20 01/19/18 16:00 97.9 120 20 158/110 (126) 96 01/19/18 12:00 98.0 100 18 148/88 (108) 96 I/O 01/19/18 01/19/18 01/19/18 01/20/18 01/20/18 01/20/18 07:00 15:00 23:00 07:00 15:00 23:00 Intake Total 600 ml 1600 ml 600 ml Output Total 300 ml 1100.0 ml 380 ml Balance 300 ml 500.0 ml 220 ml Intake Oral 0 ml 0 ml Tube Feeding 0 ml 1300 ml 0 ml Other 600 ml 300 ml 600 ml Output Urine Total 300 ml 300 ml 380 ml Gastric Drainage Total 800 ml Tube Feeding Residual Discard 0 ml # Bowel Movements 1 2 1 Result Diagram: 01/17/18181301/17/181813 Other Results Laboratory Tests Test 01/17/18 18:00 01/17/18 18:14 Urine Color YELLOW Urine Turbidity HAZY Urine pH 7.5 Urine Specific [place] 1.015 Urine Protein 100 mg/dL Urine Glucose (UA) NEG mg/dL Urine Ketones NEG mg/dL Urine Occult Blood SMALL Urine Nitrite NEG Urine Bilirubin NEG Urine Urobilinogen LESS THAN 2.0 MG/DL Urine Leukocyte Esterase LARGE Urine RBC 3 /hpf Urine WBC 52 /hpf Urine Squamous Epithelial Cells 1 /hpf Urine Transitional Epithelial Cells 1 /hpf Urine Bacteria MOD /hpf Urine Hyaline Casts 9 /lpf Microscopic Urinalysis Comment CATH-CULTURE IND White Blood Count 6.6 TH/MM3 Red Blood Count 4.28 MIL/MM3 Hemoglobin 11.6 GM/DL Hematocrit 35.7 % Mean Corpuscular Volume 83.3 FL Mean Corpuscular Hemoglobin 27.1 PG Mean Corpuscular Hemoglobin Concent 32.5 % Red Cell Distribution Width 17.1 % Platelet Count 394 TH/MM3 Mean Platelet Volume 8.4 FL Neutrophils (%) (Auto) 60.3 % Lymphocytes (%) (Auto) 20.5 % Monocytes (%) (Auto) 14.7 % Eosinophils (%) (Auto) 3.7 % Basophils (%) (Auto) 0.8 % Neutrophils # (Auto) 4.0 TH/MM3 Lymphocytes # (Auto) 1.4 TH/MM3 Monocytes # (Auto) 1.0 TH/MM3 Eosinophils # (Auto) 0.2 TH/MM3 Basophils # (Auto) 0.1 TH/MM3 CBC Comment DIFF FINAL Differential Comment Blood Urea Nitrogen 26 MG/DL Creatinine 0.43 MG/DL Random Glucose 118 MG/DL Calcium Level 9.3 MG/DL Sodium Level 139 MEQ/L Potassium Level 3.9 MEQ/L Chloride Level 105 MEQ/L Carbon Dioxide Level 25.4 MEQ/L Anion Gap 9 MEQ/L Estimat Glomerular Filtration Rate 179 ML/MIN Imaging Last Impressions Chest X-Ray 01/19/18 0000 Signed Impressions: Service Date/Time: Friday, January 19, 2018 17:12 - CONCLUSION: Trace left base atelectasis. Hu Henderson MD Gastrostomy Tube Placement 01/18/18 0000 Signed Impressions: Service Date/Time: January 16:41 - CONCLUSION: Uncomplicated gastrostomy tube replacement through an existing tract. Timmy Dumas MD Brain MRI 01/11/18 0000 Signed Impressions: Service Date/Time: January 08:45 - CONCLUSION: 1. Focal area of restricted diffusion in the left thalmus characteristic of an acute to subacute infarct. 2. GRE images demonstrate subacute hemorrhage associated with the infarct in the left thalamus. 3. GRE images also demonstrate punctate areas of microhemorrhage noted in the deep right mid parietal lobe, right occipital lobe and bilateral basal ganglia regions, left greater than right. 4. Diffuse bilateral cortical atrophy and chronic white matter changes. Luciano Morales MD Head CT 01/10/18 0000 Signed Impressions: Service Date/Time: Wednesday, January 10, 2018 10:47 - CONCLUSION: Atrophy, chronic small vessel ischemic change, and prior areas of infarction. No acute intracranial abnormality. Phillip Patel Jr., MD Abdomen/Pelvis CT 01/09/18 0000 Signed Impressions: Service Date/Time: Tuesday, January 09, 2018 18:48 - CONCLUSION: 1. There is a sacral decubitus wound/ulcer which extends to the sacrum. Prior MRI demonstrated abnormal sacrum in the inferior aspect of the sacrum and coccyx. There is also presacral edema. These findings are highly suspicious for osteomyelitis. 2. Nonacute findings include 3 mm nonobstructing right renal stone and multi-fibroid uterus. Hu Cuenca MD Sacrum/Coccyx MRI 01/06/18 0000 Signed Impressions: Service Date/Time: Saturday, January 06, 2018 08:30 - CONCLUSION: Large decubitus ulcer posteriorly with not only bony edema and marrow replacement concerning for osteomyelitis but it extends to the presacral fat is well where there is marked enhancement and fluid on the T2-weighted sequences. The coccygeal involvement is at least 3.5 cm in length. Eliud Du MD Abdomen X-Ray 12/13/17 0000 Signed Impressions: Service Date/Time: Wednesday, December 13, 2017 14:17 - CONCLUSION: PEG tube in stomach.. Harry Dumas MD FACR Upper Extremity Ultrasound 11/06/17 0000 Signed Impressions: Service Date/Time: Monday, November 06, 2017 14:17 - CONCLUSION: Normal examination. KLanre Perez MD Pelvis CT 10/13/17 0000 Signed Impressions: Service Date/Time: Friday, October 13, 2017 12:02 - CONCLUSION: 1. Decubitus ulcer with small abscess in the right posterior perineal region measuring 3.1 x 4.6 cm. There is also a small abscess posterior and to the left of the rectum measuring 3.2 x 2.3 cm. Jann Weber MD Neck CTA 04/10/17 0000 Signed Impressions: Service Date/Time: Monday, April 10, 2017 22:28 - CONCLUSION: The internal carotid arteries are normal bilaterally. No significant atherosclerotic disease is noted. Eliud Du MD Head CTA 04/10/17 0000 Signed Impressions: Service Date/Time: Monday, April 10, 2017 22:50 - CONCLUSION: Mild dilatation of the basilar tip without discrete aneurysm. Some narrowing of the left middle cerebral branch after the bifurcation. Prominent left thalamic hemorrhage. Eliud Du MD Objective Remarks GENERAL: Patient lying in CHAIR, appears comfortable -HER VOICE IS very soft- spoken can be heard with my stethoscope only SKIN: Warm and dry. HEAD: Atraumatic. Normocephalic. EYES: Pupils equal and round. No scleral icterus. No injection or drainage. ENT: No nasal bleeding or discharge. Mucous membranes pink and moist. NECK: Trachea midline. No JVD. Supple CARDIOVASCULAR: Regular rate and rhythm. S1 and S2 no S3 or S4 RESPIRATORY: No accessory muscle use. Clear to auscultation. Breath sounds equal bilaterally. GASTROINTESTINAL: Abdomen soft, non-tender, nondistended. Hepatic and splenic margins not palpable. PEG tube in place--Cruz catheter in place MUSCULOSKELETAL: Extremities without clubbing, cyanosis, or edema. No obvious deformities. Has bilateral foot drop and right upper extremity flaccid can move left upper extremity with good mohs surgeon strength NEUROLOGICAL: Awake and alert. No obvious cranial nerve deficits. Normal speech but very very soft. PSYCHIATRIC: Appropriate mood and affect; insight and judgment ABnormal. Procedures Peg Tube placed 05/08/17 (Dr. De Los Santos) Medications and IVs Current Medications Sodium Chloride (NS Flush) 2 ml UNSCH PRN IVF FLUSH AFTER USING IV ACCESS; Start 04/10/17 at 20:00; Stop 04/10/17 at 22:12; Status DC Nicardipine HCl 25 mg/Sodium Chloride 260 ml @ 0 mls/hr TITRATE IV Last administered on 04/10/17t 21:34; Start 04/10/17 at 20:00; Stop 04/10/17 at 22:12; Status DC Sodium Chloride 1,000 ml @ 84 mls/hr [id number] IV Last administered on 04/11/17 07:47; Start 04/10/17 at 22:00; Stop 04/11/17 at 15:41; Status DC Sodium Chloride (NS Flush) 2 ml UNSCH PRN .XX FLUSH AFTER USING IV ACCESS Last administered on 05/01/17 04:49; Start 04/10/17 at 22:00; Stop 05/26/17 at 10:07 ; Status DC Sodium Chloride (NS Flush) 2 ml BID .XX Last administered on 05/26/17 09:54; Start 04/11/17 at 09:00; Stop 05/26/17 at 10:07; Status DC Acetaminophen (Tylenol) 650 mg Q6H PRN PO PAIN 1-10 AND/OR FEVER >101F Last administered on 04/26/17 13:46; Start 04/10/17 at 22:00; Stop 06/16/17 at 10:03 ; Status DC Morphine Sulfate (Morphine Inj) 2 mg Q2H PRN IV PAIN SCALE 6 TO 10 Last administered on 05/25/17 21:09; Start 04/10/17 at 22:00; Stop 05/26/17 at 10:07 ; Status DC Famotidine (Pepcid Inj) 20 mg Q12HR IV PUSH Last administered on 05/04/17 08: 37; Start 04/11/17 at 09:00; Stop 05/04/17 at 14:13; Status DC Ondansetron HCl (Zofran Inj) 4 mg Q6H PRN IV NAUSEA OR VOMITING; Start 04/10/17 at 22:00; Stop 05/26/17 at 10:07; Status DC Metoclopramide HCl (Reglan Inj) 10 mg Q6H PRN IV NAUSEA OR VOMITING; Start 04/10 at 22:00; Stop 05/26/17 at 10:07; Status DC Prochlorperazine (Compazine Supp) 25 mg Q12H PRN RECTAL NAUSEA OR VOMITING; Start 04/10/17 at 22:00; Stop 05/26/17 at 10:07; Status DC Albuterol/ Ipratropium (Duoneb Neb) 1 ampule Q2HR NEB PRN INH WHEEZING; Start 04/10/17 at 22:00; Stop 05/26/17 at 10:07; Status DC Miscellaneous Information 1 Q361D XX Last administered on 04/10/17 22:00; Start 04/10/17 at 22:00; Stop 05/26/17 at 10:07; Status DC Chlorhexidine Gluconate (Chlorhexidine 2% Cloth) Taper DAILY@04 TOP Last administered on 05/21/17 04:00; Start 04/11/17 at 04:00; Stop 05/26/17 at 10:07 ; Status DC Chlorhexidine Gluconate (Chlorhexidine 2% Cloth) 3 pack UNSCH PRN TOP HYGIENIC CARE; Start 04/10/17 at 22:00; Stop 05/26/17 at 10:07; Status DC Senna/Docusate Sodium (Evelyn-Colace) 1 tab BID PO Last administered on 09:20; Start 04/11/17 at 09:00; Stop 06/16/17 at 10:03; Status DC Magnesium Hydroxide (Milk Of Magnesia Liq) 30 ml Q12H PRN PO MILD - MODERATE CONSTIPATION; Start 04/10/17 at 22:00; Stop 05/26/17 at 10:07; Status DC Sennosides (Senokot) 17.2 mg Q12H PRN PO MODERATE - SEVERE CONSTIPATION Last administered on 05/08/17 21:29; Start 04/10/17 at 22:00; Stop 05/26/17 at 10:07; Status DC Bisacodyl (Dulcolax Supp) 10 mg DAILY PRN RECTAL SEVERE CONSITIPATION; Start at 22:00 Lactulose (Lactulose Liq) 30 ml DAILY PRN PO SEVERE CONSITIPATION Last administered on 04/24/17 08:44; Start 04/10/17 at 22:00; Stop 06/16/17 at 10:03 ; Status DC Nicardipine HCl 25 mg/Sodium Chloride 260 ml @ 0 mls/hr TITRATE IV Last administered on 04/14/17 04:35; Start 04/10/17 at 22:15; Stop 04/14/17 at 12:18; Status DC Iohexol (Omnipaque 350 Inj) 70 ml STK-MED ONCE IV Last administered on 22:35; Start 04/10/17 at 22:35; Stop 04/10/17 at 22:36; Status DC Labetalol HCl (Trandate Inj) 20 mg Q4H PRN IV PUSH sbp>160 Last administered on 04/17/17 02:24; Start 04/12/17 at 08:15; Stop 04/25/17 at 18:06; Status DC Hydralazine HCl (Apresoline Inj) 20 mg Q4H PRN IV PUSH sbp>150 Last administered on 05/17/17 20:39; Start 04/12/17 at 08:15; Stop 05/18/17 at 14:44 ; Status DC Amlodipine Besylate (Norvasc) 5 mg DAILY PO Last administered on 04/14/17 08:55 ; Start 04/12/17 at 09:00; Stop 04/15/17 at 06:44; Status DC Metoclopramide HCl (Reglan Inj) 5 mg Q8HR IV PUSH Last administered on 14:02; Start 04/12/17 at 16:00; Stop 05/04/17 at 14:13; Status DC Potassium Chloride 100 ml @ 50 mls/hr Q2H PRN IV For Potassium 2.8 - 3.2 mEq/L ; Start 04/13/17 at 11:45; Stop 04/25/17 at 11:32; Status DC Potassium Chloride 100 ml @ 50 mls/hr Q2H PRN IV For Potassium 2.8 - 3.2 mEq/ L Last administered on 04/14/17 13:06; Start 04/13/17 at 11:45; Stop 04/25/17 at 11:32; Status DC Potassium Bicarb/ Potassium Chloride (K-Lyte Cl Eff) 50 meq UNSCH PRN PO For Potassium 3.3 - 3.5 mEq/L Last administered on 04/19/17 14:03; Start 04/13/17 at 11:45; Stop 04/25/17 at 11:32; Status DC Potassium Chloride 100 ml @ 25 mls/hr UNSCH PRN IV For Potassium 3.3 - 3.5 mEq /L; Start 04/13/17 at 11:45; Stop 04/25/17 at 11:32; Status DC Potassium Chloride 100 ml @ 50 mls/hr Q2H PRN IV For Potassium 3.3 - 3.5 mEq/L ; Start 04/13/17 at 11:45; Stop 04/25/17 at 11:32; Status DC Magnesium Sulfate 4 gm/Sodium Chloride 100 ml @ 50 mls/hr UNSCH PRN IV For Magnesium 0.9 - 1.1 mg/dL; Start 04/13/17 at 11:45; Stop 04/25/17 at 11:32; Status DC Magnesium Oxide (Mag-Ox) 800 mg UNSCH PRN PO For Magnesium 1.2 - 1.6 mg/dL; Start 04/13/17 at 11:45; Stop 04/25/17 at 11:32; Status DC Magnesium Sulfate 2 gm/Sodium Chloride 100 ml @ 50 mls/hr UNSCH PRN IV For Magnesium 1.2 - 1.6 mg/dL; Start 04/13/17 at 11:45; Stop 04/25/17 at 11:32; Status DC Potassium Phosphate (K-Phos) 2,000 mg Q4H PRN PO For Phosphorus < 2.5 mg/dL; Start 04/13/17 at 11:45; Stop 04/25/17 at 11:32; Status DC Sodium Phosphate 30 mmol/Sodium Chloride 250 ml @ 42 mls/hr UNSCH PRN IV For Phosphorus < 2.5 mg/dL; Start 04/13/17 at 11:45; Stop 04/25/17 at 11:32; Status DC Potassium Phosphate (K-Phos) 2,000 mg UNSCH PRN PO/TUBE SEE LABEL COMMENTS; Start 04/13/17 at 11:45; Stop 04/25/17 at 11:32; Status DC Potassium Phosphate 30 mmol/ Sodium Chloride 260 ml @ 42 mls/hr UNSCH PRN IV SEE LABEL COMMENTS; Start 04/13/17 at 11:45; Stop 04/25/17 at 11:32; Status DC Metoprolol Tartrate (Lopressor) 25 mg Q8HR PO Last administered on 04/14/17 05: 40; Start 04/13/17 at 14:00; Stop 04/14/17 at 12:18; Status DC Hydralazine HCl (Apresoline) 50 mg Q8H PO Last administered on 04/14/17 03:23; Start 04/13/17 at 12:00; Stop 04/14/17 at 09:23; Status DC Hydralazine HCl (Apresoline) 100 mg Q8H PO Last administered on 04/14/17 11:25 ; Start 04/14/17 at 12:00; Stop 04/14/17 at 19:47; Status DC Metoprolol Tartrate (Lopressor) 50 mg Q8HR PO Last administered on 04/24/17 05 :27; Start 04/14/17 at 14:00; Stop 04/24/17 at 09:28; Status DC Hydralazine HCl (Apresoline Inj) 20 mg ONCE ONCE IV PUSH Last administered on 04/14/17 17:42; Start 04/14/17 at 17:15; Stop 04/14/17 at 17:32; Status DC Labetalol HCl (Trandate Inj) 10 mg ONCE ONCE IV PUSH Last administered on 17:42; Start 04/14/17 at 17:15; Stop 04/14/17 at 17:32; Status DC Clonidine (Catapres) 0.3 mg ONCE ONCE PO Last administered on 04/14/17 17:50; Start 04/14/17 at 17:15; Stop 04/14/17 at 17:32; Status DC Clonidine (Catapres) 0.2 mg Q8HR PO ; Start 04/14/17 at 22:00; Stop 04/14/17 at 22 :00; Status DC Clonidine (Catapres) 0.3 mg Q8HR PO Last administered on 04/26/17 05:55; Start 04/14/17 at 22:00; Stop 04/26/17 at 14:39; Status DC Hydralazine HCl (Apresoline) 100 mg Q6HR PO Last administered on 04/15/17 10: 39; Start 04/15/17 at 00:00; Stop 04/15/17 at 13:10; Status DC Amlodipine Besylate (Norvasc) 10 mg DAILY PO Last administered on 06/12/17 07: 39; Start 04/14/17 at 19:45; Stop 06/12/17 at 07:56; Status DC Enalaprilat (Vasotec Inj) 1.25 mg Q6H PRN IV PUSH SBP>160, DBP>90 Last administered on 05/13/17 01:22; Start 04/15/17 at 01:15; Stop 05/26/17 at 10:07 ; Status DC Nitroglycerin (Nitroglycerin 2% Oint) 2 inch Q6HR PRN TOPICAL SBP>160, DBP>90 Last administered on 04/16/17 12:34; Start 04/15/17 at 06:00; Stop 05/26/17 at 10:07; Status DC Hydralazine HCl (Apresoline) 100 mg Q8HR PO Last administered on 04/26/17 05: 55; Start 04/15/17 at 14:00; Stop 04/26/17 at 14:39; Status DC Lisinopril (Prinivil) 20 mg DAILY PO Last administered on 04/16/17 08:32; Start 04/15/17 at 13:30; Stop 04/16/17 at 14:58; Status DC Lisinopril (Prinivil) 20 mg ONCE ONCE PO Last administered on 04/16/17 15:27 ; Start 04/16/17 at 15:00; Stop 04/16/17 at 15:03; Status DC Lisinopril (Prinivil) 40 mg BID PO Last administered on 04/20/17 09:09; Start 04/16/17 at 21:00; Stop 04/20/17 at 16:42; Status DC Hydrochlorothiazide (Hydrodiuril) 25 mg DAILY PO Last administered on 08:59; Start 04/17/17 at 17:45; Stop 04/18/17 at 16:28; Status DC Hydrochlorothiazide (Hydrodiuril) 25 mg ONCE ONCE PO Last administered on 04/18 16:51; Start 04/18/17 at 16:30; Stop 04/18/17 at 16:32; Status DC Hydrochlorothiazide (Hydrodiuril) 50 mg DAILY PO Last administered on 08:50; Start 04/19/17 at 09:00; Stop 04/25/17 at 18:06; Status DC Lisinopril (Prinivil) 30 mg BID PO Last administered on 04/25/17 08:50; Start 04/20/17 at 21:00; Stop 04/25/17 at 18:06; Status DC Miscellaneous (Pill Splitter) 1 ea UNSCH PRN OTHER SEE LABEL COMMENTS; Start at 17:15; Stop 10/18/17 at 09:37; Status DC Ceftriaxone Sodium 1000 mg/ Sodium Chloride 100 ml @ 200 mls/hr HS IV Last administered on 04/29/17 22:04; Start 04/22/17 at 21:30; Stop 04/30/17 at 12:37 ; Status DC Metoprolol Tartrate (Lopressor) 50 mg BID PO Last administered on 05/26/17 09: 54; Start 04/24/17 at 21:00; Stop 05/26/17 at 10:12; Status DC Lisinopril (Prinivil) 20 mg DAILY PO Last administered on 04/27/17 09:52; Start 04/26/17 at 09:00; Stop 04/28/17 at 00:21; Status DC Clonidine (Catapres) 0.2 mg Q8HR PO Last administered on 05/26/17 05:57; Start 04/26/17 at 22:00; Stop 05/26/17 at 10:12; Status DC Hydralazine HCl (Apresoline) 50 mg Q8HR PO Last administered on 04/27/17 12:45 ; Start 04/26/17 at 22:00; Stop 04/27/17 at 15:31; Status DC Hydralazine HCl (Apresoline) 100 mg Q8HR PO Last administered on 06/10/17 06:18 ; Start 04/27/17 at 22:00; Stop 06/10/17 at 12:03; Status DC Lisinopril (Prinivil) 40 mg DAILY PO Last administered on 06/16/17 09:20; Start 04/28/17 at 09:00; Stop 06/16/17 at 10:03; Status DC Famotidine (Pepcid) 20 mg BID NG Last administered on 05/09/17 09:36; Start at 21:00; Stop 05/09/17 at 12:49; Status DC Lactic Acid (Lac-Hydrin 12% Lotion) 1 applic BID TOPICAL Last administered on at 20:03; Start 05/04/17 at 14:00 Cefazolin Sodium 1000 mg/Sodium Chloride 100 ml @ 200 mls/hr BALLET SOLOIST IV ; Start 05/06/17 at 10:30; Stop 05/09/17 at 10:29; Status DC Cefazolin Sodium (Ancef Inj) 1,000 mg STK-MED ONCE IV Last administered on 15:00; Start 05/08/17 at 15:00; Stop 05/08/17 at 15:08; Status DC Propofol (Diprivan 200 Mg/20 ml Inj) 150 mg STK-MED ONCE IV PUSH ; Start at 15:27; Stop 05/08/17 at 15:45; Status DC Lansoprazole (Prevacid Odt) 30 mg DAILY G-TUBE Last administered on 01/19/18 09:44; Start 05/10/17 at 09:00 Nystatin (Mycostatin Liq) 5 ml QID SWISH-SWAL Last administered on 05/22/17 09:36; Start 05/14/17 at 13:00; Stop 05/22/17 at 11:19; Status DC Hydralazine HCl (Apresoline) 25 mg Q4HR PRN PEG for sbp greater than 150 Last administered on 11/04/17 14:28; Start 05/18/17 at 14:45 Clonidine (Catapres) 0.1 mg Q6H PRN PO for SBP greater than 170 Last administered on 05/22/17 02:48; Start 05/21/17 at 07:30; Stop 05/26/17 at 10:12 ; Status DC Nystatin (Mycostatin Liq) 5 ml QID SWISH-SWAL Last administered on 05/28/17 09:43; Start 05/23/17 at 13:00; Stop 05/28/17 at 10:02; Status DC Ondansetron HCl (Zofran Liq) 4 mg Q6H PRN PEG NAUSEA OR VOMITING Last administered on 01/14/18 08:51; Start 05/26/17 at 10:00 Metoprolol Tartrate (Lopressor) 75 mg BID PO Last administered on 05/28/17 09: 43; Start 05/26/17 at 21:00; Stop 05/28/17 at 09:58; Status DC Clonidine (Catapres-Tts 0.2 Mg Patch.7d) 1 patch Q7D T-DERMAL Last administered on 06/02/17 11:27; Start 05/26/17 at 12:00; Stop 06/06/17 at 12:47 ; Status DC Miscellaneous Information 1 Q7D T-DERMAL Last administered on 06/02/17 11:28; Start 06/02/17 at 12:00; Stop 06/06/17 at 13:31; Status DC Metoprolol Tartrate (Lopressor) 100 mg BID PO Last administered on 06/16/17 09 :20; Start 05/28/17 at 21:00; Stop 06/16/17 at 10:03; Status DC Fluconazole (Diflucan) 200 mg DAILY PO Last administered on 06/03/17 08:44; Start 05/28/17 at 11:00; Stop 06/04/17 at 08:59; Status DC Levofloxacin (Levaquin Liq) 750 mg Q24H PEG ; Start 05/29/17 at 11:00; Stop at 15:05; Status DC Levofloxacin (Levaquin Liq) 750 mg DAILY@16 PEG Last administered on 16:20; Start 05/29/17 at 16:00; Stop 06/04/17 at 16:01; Status DC Sodium Chloride 500 ml @ 500 mls/hr BOLUS ONCE IV Last administered on 15:43; Start 06/01/17 at 11:30; Stop 06/01/17 at 12:29; Status DC Sodium Chloride 1,000 ml @ 100 mls/hr Q10H IV Last administered on 06/03/17 06:17; Start 06/02/17 at 11:15; Stop 06/03/17 at 10:16; Status DC Clonidine (Catapres-Tts 0.3 Mg Patch.7d) 1 patch Q7D T-DERMAL Last administered on 12/19/17 17:32; Start 06/06/17 at 15:00; Stop 12/24/17 at 09:54 ; Status DC Miscellaneous Information 1 Q7D T-DERMAL Last administered on 12/19/17at 15:00; Start 06/06/17 at 15:00; Stop 12/24/17 at 09:54; Status DC Hydralazine HCl (Apresoline) 100 mg Q6HR PO Last administered on 06/16/17 06: 20; Start 06/10/17 at 18:00; Stop 06/16/17 at 10:03; Status DC Nifedipine (Procardia Xl) 60 mg DAILY PO Last administered on 06/15/17 10:04; Start 06/12/17 at 09:00; Stop 06/16/17 at 10:03; Status DC Acetaminophen (Tylenol) 650 mg Q6H PRN PEG PAIN 1-10 AND/OR FEVER >101F Last administered on 10/17/17 19:29; Start 06/16/17 at 16:00; Status Future Hold Senna/Docusate Sodium (Evelyn-Colace) 1 tab BID PEG Last administered on 09:42; Start 06/16/17 at 21:00; Stop 06/28/17 at 10:38; Status DC Hydralazine HCl (Apresoline) 100 mg Q6HR PEG Last administered on 08/17/17 22 :43; Start 06/16/17 at 12:00; Stop 08/18/17 at 07:50; Status DC Lactulose (Lactulose Liq) 30 ml DAILY PRN PEG SEVERE CONSITIPATION; Start 06/16 at 10:00; Stop 08/17/17 at 08:28; Status DC Lisinopril (Prinivil) 40 mg DAILY PEG Last administered on 08/16/17 08:04; Start 06/17/17 at 09:00; Stop 08/18/17 at 07:50; Status DC Metoprolol Tartrate (Lopressor) 100 mg BID PEG Last administered on 11/21/17at 21:41; Start 06/16/17 at 21:00; Stop 11/23/17 at 11:24; Status DC Nifedipine (Procardia) 20 mg Q8HR PEG Last administered on 06/20/17 05:41; Start 06/16/17 at 14:00; Stop 06/20/17 at 14:35; Status DC Nifedipine (Procardia) 30 mg Q8HR .XX Last administered on 06/22/17 13:13; Start 06/20/17 at 22:00; Stop 06/22/17 at 13:14; Status DC Nifedipine (Procardia) 30 mg Q6HR .XX Last administered on 06/26/17 06:32; Start 06/22/17 at 18:00; Stop 06/26/17 at 11:22; Status DC Nifedipine (Procardia) 40 mg Q6HR PEG Last administered on 12/17/17at 11:55; Start 06/26/17 at 12:00; Stop 12/17/17 at 18:00; Status DC Sennosides (Senna Liq) 8.8 mg DAILY PEG Last administered on 10/17/17 10:02 ; Start 06/29/17 at 09:00; Status Future Hold Hydrochlorothiazide (Hydrodiuril) 25 mg DAILY PO Last administered on 07/07/17 08:49; Start 07/01/17 at 12:00; Stop 07/07/17 at 11:21; Status DC Hydrochlorothiazide (Hydrodiuril) 25 mg BID@ PEG Last administered on 07/21 17:17; Start 07/07/17 at 18:00; Stop 07/28/17 at 15:04; Status DC Potassium Bicarb/ Potassium Chloride (K-Lyte Cl Eff) 25 meq DAILY PEG Last administered on 07/22/17 09:54; Start 07/07/17 at 11:30; Stop 07/28/17 at 15:04 ; Status DC Hydrochlorothiazide (Hydrodiuril) 25 mg DAILY PO Last administered on 08:04; Start 08/04/17 at 12:30; Stop 08/18/17 at 07:50; Status DC Nystatin (Mycostatin Liq) 5 ml QID OTHER Last administered on 08/21/17 17:54 ; Start 08/13/17 at 18:00; Stop 08/21/17 at 18:00; Status DC Polyethylene Glycol (Miralax) 17 gm DAILY PRN PO severe constipation Last administered on 08/30/17 23:22; Start 08/17/17 at 08:30; Stop 12/09/17 at 09: 10; Status DC Hydralazine HCl (Apresoline) 100 mg Q8HR PEG Last administered on 08/19/17 06 :38; Start 08/18/17 at 14:00; Stop 08/19/17 at 07:53; Status DC Lisinopril (Prinivil) 20 mg BID PEG ; Start 08/18/17 at 09:00; Stop 08/19/17 at 07:53; Status DC Hydralazine HCl (Apresoline) 50 mg Q6HR PEG Last administered on 12/10/17 23:28 ; Start 08/19/17 at 12:00; Stop 12/11/17 at 04:19; Status DC Lisinopril (Prinivil) 10 mg BID PEG Last administered on 11/15/17 08:28; Start 08/19/17 at 09:00; Stop 11/15/17 at 10:41; Status DC Hydrochlorothiazide (Hydrodiuril) 25 mg DAILY PO Last administered on 17:12; Start 08/20/17 at 15:00; Stop 08/21/17 at 08:35; Status DC Nystatin (Mycostatin Liq) 5 ml QID OTHER Last administered on 09/02/17 21:12 ; Start 08/23/17 at 18:00; Stop 09/03/17 at 09:51; Status DC Hydrochlorothiazide (Hydrodiuril) 25 mg DAILY PO Last administered on 10:34; Start 08/29/17 at 11:15; Stop 09/03/17 at 09:51; Status DC Hydrochlorothiazide (Microzide) 12.5 mg DAILY PO Last administered on 09:03; Start 09/04/17 at 09:00; Stop 09/04/17 at 13:23; Status DC Nystatin (Mycostatin Liq) 5 ml QID SWISH-SWAL Last administered on 10/17/17 14:28; Start 09/07/17 at 13:00; Stop 10/17/17 at 15:32; Status DC Hydrochlorothiazide (Microzide) 12.5 mg DAILY PO Last administered on 08:12; Start 09/15/17 at 11:45; Stop 09/27/17 at 09:00; Status DC Hydrochlorothiazide (Hydrodiuril) 25 mg DAILY PO Last administered on 10:27; Start 09/27/17 at 09:15; Stop 01/19/18 at 09:03; Status DC Vancomycin HCl 1000 mg/Sodium Chloride 250 ml @ 250 mls/hr ONCE ONCE IV Last administered on 10/10/17 11:28; Start 10/10/17 at 10:00; Stop 10/10/17 at 10:59 ; Status DC Pharmacy Profile Note 0 ml @ 0 mls/hr UNSCH OTHER ; Start 10/10/17 at 09:00; Stop 10/17/17 at 15:26; Status DC Potassium Bicarb/ Potassium Chloride (K-Lyte Cl Eff) 50 meq ONCE ONCE PEG Last administered on 10/10/17 10:14; Start 10/10/17 at 09:30; Stop 10/10/17 at 09:31; Status DC Vancomycin HCl 1250 mg/Sodium Chloride 262.5 ml @ 250 mls/hr Q12H IV Last administered on 10/11/17 18:08; Start 10/10/17 at 18:00; Stop 10/11/17 at 21:55 ; Status DC Miscellaneous Information SPECIFIC LAB TO BE DRAWN:VANCO TROUGH DATE TO BE .Lanre ONCE ONCE .XX Last administered on 10/11/17 17:20; Start 10/11/17 at 17 :45; Stop 10/11/17 at 17:46; Status DC Piperacillin Sod/ Tazobactam Sod 50 ml @ 100 mls/hr Q6HR IV ; Start 10/10/17 at 12:00; Stop 10/10/17 at 14:07; Status DC Piperacillin Sod/ Tazobactam Sod 50 ml @ 100 mls/hr Q6HR IV Last administered on 10/22/17 05:38; Start 10/10/17 at 15:00; Stop 10/22/17 at 08:29; Status DC Vancomycin HCl 1000 mg/Sodium Chloride 250 ml @ 250 mls/hr Q12H IV Last administered on 10/14/17 06:03; Start 10/12/17 at 06:00; Stop 10/14/17 at 13:01 ; Status DC Miscellaneous Information SPECIFIC LAB TO BE .Lanre ONCE ONCE .XX Last administered on 10/14/17 05:45; Start 10/14/17 at 05:45; Stop 10/14/17 at 05:46 ; Status DC Collagenase (Santyl Oint) 1 applic BID TOPICAL Last administered on 10/18/17 21:00; Start 10/12/17 at 09:00; Stop 10/19/17 at 08:47; Status DC Potassium Chloride/Sodium Chloride 1,000 ml @ 100 mls/hr Q10H IV Last administered on 10/16/17 20:57; Start 10/13/17 at 09:00; Stop 10/17/17 at 04: 36; Status DC Fluconazole/ Sodium Chloride 100 ml @ 100 mls/hr Q24H IV Last administered on 10/15/17 12:49; Start 10/13/17 at 12:00; Stop 10/16/17 at 07:19; Status DC Iohexol (Omnipaque 350 Inj) 85 ml STK-MED ONCE IVCONTRAST Last administered on 10/13/17 12:29; Start 10/13/17 at 12:29; Stop 10/13/17 at 12:30; Status DC Potassium Chloride 100 ml @ 50 mls/hr Q2H IV Last administered on 10/14/17 12 :51; Start 10/14/17 at 08:30; Stop 10/14/17 at 12:29; Status DC Potassium Bicarb/ Potassium Chloride (K-Lyte Cl Eff) 50 meq ONCE ONCE PEG Last administered on 10/14/17 10:48; Start 10/14/17 at 08:15; Stop 10/14/17 at 08:17; Status DC Vancomycin HCl 1250 mg/Sodium Chloride 262.5 ml @ 250 mls/hr Q12H IV Last administered on 10/14/17 18:20; Start 10/14/17 at 18:00; Stop 10/15/17 at 09: 15; Status DC Miscellaneous Information SPECIFIC LAB TO BE DRAWN:VANCO TROUGH DATE TO BE DR... ONCE ONCE .XX ; Start 10/16/17 at 05:45; Stop 10/16/17 at 05:46; Status Cancel Potassium Bicarb/ Potassium Chloride (K-Lyte Cl Eff) 50 meq ONCE ONCE PO Last administered on 10/15/17 11:45; Start 10/15/17 at 10:00; Stop 10/15/17 at 10:01; Status DC Vancomycin HCl 1250 mg/Sodium Chloride 262.5 ml @ 250 mls/hr Q12H IV Last administered on 10/17/17 10:01; Start 10/15/17 at 10:00; Stop 10/17/17 at 15 :26; Status DC Miscellaneous Information SPECIFIC LAB TO BE DRAWN:VANCOMYCIN TROUGH DATE TO... ONCE ONCE .XX Last administered on 10/16/17 21:45; Start 10/16/17 at 21:45 ; Stop 10/16/17 at 21:46; Status DC Ciprofloxacin (Cipro) 500 mg Q12HR PEG Last administered on 10/18/17 21:00; Start 10/16/17 at 09:00; Stop 10/19/17 at 09:14; Status DC Potassium Chloride/Sodium Chloride 1,000 ml @ 100 mls/hr Q10H IV Last administered on 10/17/17 10:02; Start 10/17/17 at 08:00; Stop 10/17/17 at 18 :32; Status DC Hydromorphone HCl (Dilaudid Pf Inj) 2 mg ONCE ONCE IV PUSH Last administered on 10/17/17 12:50; Start 10/17/17 at 12:15; Stop 10/17/17 at 12:16; Status DC Sodium Hypochlorite (Dakin'S 0.5% Soln) 500 ml ONCE ONCE TOPICAL Last administered on 10/17/17 14:28; Start 10/17/17 at 13:30; Stop 10/17/17 at 13 :35; Status DC Sodium Hypochlorite (Dakin'S 0.25% Soln) 50 ml BID TOPICAL Last administered on 10/18/17 21:00; Start 10/17/17 at 21:00; Stop 10/19/17 at 08:47; Status DC Morphine Sulfate (Morphine Inj) 2 mg BID PRN IV PUSH painful dressing changes Last administered on 10/20/17 09:23; Start 10/17/17 at 15:00; Stop 10/20/17 at 16:23; Status DC Benztropine Mesylate (Cogentin Inj) 0.5 mg HS IV PUSH ; Start 10/17/17 at 21:00 ; Stop 10/17/17 at 21:00; Status DC Naloxone HCl (Narcan Inj) 0.4 mg UNSCH X1 PRN IV PUSH RESP DEPRESSION OR HYPOTENSION; Start 10/17/17 at 17:30; Stop 10/20/17 at 17:29; Status DC Baclofen (Lioresal) 5 mg ONCE ONCE PO Last administered on 10/17/17 17:45; Start 10/17/17 at 17:45; Stop 10/17/17 at 17:46; Status DC Miscellaneous (Pill Splitter) 1 ea UNSCH PRN OTHER SEE LABEL COMMENTS Last administered on 12/08/17at 20:45; Start 10/17/17 at 17:45 Sodium Chloride 1,000 ml @ 42 mls/hr [id number] IV Last administered on 06:00; Start 10/18/17 at 10:00; Stop 10/24/17 at 15:36; Status DC Collagenase (Santyl Oint) 1 applic BID TOPICAL Last administered on 11/14/17 07 :57; Start 10/19/17 at 10:00; Stop 11/17/17 at 09:01; Status DC Water (Free Water) 150 ml Q6HR G-TUBE Last administered on 01/19/18 16:52; Start 10/19/17 at 12:00 Morphine Sulfate (Morphine Inj) 2 mg BID PRN IV PUSH painful dressing changes Last administered on 10/22/17 09:40; Start 10/20/17 at 16:30; Stop 10/23/17 at 17:45; Status DC Sodium Chloride 500 ml @ 50 mls/hr Q10H IV ; Start 10/20/17 at 17:30; Stop at 17:56; Status DC Sodium Chloride 500 ml @ 1,000 mls/hr BOLUS ONCE IV Last administered on 18:00; Start 10/20/17 at 18:00; Stop 10/20/17 at 18:29; Status DC Diphenhydramine HCl (Benadryl Liq) 50 mg ONCE ONCE PO Last administered on 01:05; Start 10/22/17 at 00:15; Stop 10/22/17 at 00:18; Status DC Piperacillin Sod/ Tazobactam Sod 3.375 gm/Sodium Chloride 100 ml @ 100 mls/hr Q6HR IV Last administered on 10/23/17 17:24; Start 10/22/17 at 12:00; Stop 10/23/17 at 17:45; Status DC Diphenhydramine HCl (Benadryl Inj) 25 mg ONCE ONCE IM Last administered on 17:54; Start 10/23/17 at 17:15; Stop 10/23/17 at 17:40; Status DC Potassium Bicarb/ Potassium Chloride (K-Lyte Cl Eff) 25 meq ONCE ONCE PO ; Start 10/23/17 at 17:45; Stop 10/23/17 at 17:57; Status DC Cefepime HCl 1000 mg/Sodium Chloride 100 ml @ 200 mls/hr Q12H IV Last administered on 11/10/17 09:06; Start 10/23/17 at 20:00; Stop 11/10/17 at 19:59 ; Status DC Levofloxacin/ Dextrose 100 ml @ 100 mls/hr Q24H IV Last administered on 17:56; Start 10/24/17 at 18:00; Stop 11/10/17 at 17:59; Status DC Ketorolac Tromethamine (Toradol Inj) 15 mg DAILY IV PUSH Last administered on 10/28/17 13:45; Start 10/24/17 at 09:00; Stop 10/29/17 at 08:59; Status DC Prednisone (predniSONE LIQ) 10 mg BID PO ; Start 10/23/17 at 21:00; Stop 10/23 at 21:51; Status DC Potassium Bicarb/ Potassium Chloride (K-Lyte Cl Eff) 25 meq ONCE ONCE PEG Last administered on 10/23/17 18:02; Start 10/23/17 at 18:00; Stop 10/23/17 at 18:01; Status DC Prednisone (predniSONE LIQ) 10 mg BID G-TUBE Last administered on 10/24/17 09 :34; Start 10/24/17 at 09:00; Stop 10/24/17 at 15:36; Status DC Potassium Chloride/Sodium Chloride 1,000 ml @ 42 mls/hr [id number] IV Last administered on 10/25/17 11:37; Start 10/24/17 at 16:00; Stop 10/25/17 at 13 :32; Status DC Lisinopril (Prinivil) 10 mg BID PEG Last administered on 11/21/17at 21:41; Start 11/15/17 at 21:00; Stop 11/22/17 at 08:58; Status DC Sodium Chloride (NS Flush) 2 ml UNSCH PRN IV FLUSH FLUSH AFTER USING IV ACCESS Last administered on 01/04/18at 08:21; Start 11/17/17 at 10:15; Stop 01/19/18 at 09:03; Status DC Lisinopril (Prinivil) 5 mg BID PEG ; Start 11/22/17 at 09:15; Stop 11/23/17 at 11:24; Status DC Metoprolol Tartrate (Lopressor) 50 mg BID PEG Last administered on 11/23/17at 20 :50; Start 11/23/17 at 21:00; Stop 11/24/17 at 12:59; Status DC Metoprolol Tartrate (Lopressor) 25 mg BID PEG Last administered on 01/19/18at 20 :00; Start 11/24/17 at 21:00 Ceftriaxone Sodium 1000 mg/ Sodium Chloride 100 ml @ 200 mls/hr Q24H IV Last administered on 12/24/17at 08:43; Start 12/09/17 at 09:00; Stop 12/24/17 at 09:54 ; Status DC Polyethylene Glycol (Miralax) 17 gm DAILY PO Last administered on 12/14/17at 09: 08; Start 12/09/17 at 09:15; Stop 12/16/17 at 17:49; Status DC Hydralazine HCl (Apresoline) 50 mg Q6HR PEG Last administered on 12/12/17at 17:41 ; Start 12/11/17 at 06:00; Stop 12/12/17 at 19:14; Status DC Hydralazine HCl (Apresoline) 50 mg Q8HR PEG Last administered on 01/20/18at 06: 36; Start 12/12/17 at 22:00 Potassium Chloride/Dextrose/ Sod Cl 1,000 ml @ 84 mls/hr [id number] IV Last administered on 12/12/17at 20:40; Start 12/12/17 at 19:15; Stop 12/13/17 at 12:00; Status DC Diatrizoate Meglum/ Diatrizoate Sod ( Gastromikaela Liq) 120 ml STK-MED ONCE PEG ; Start 12/13/17 at 15:17; Stop 12/13/17 at 15:18; Status DC Potassium Bicarb/ Potassium Chloride (K-Lyte Cl Eff) 25 meq ONCE ONCE PO Last administered on 12/16/17at 09:56; Start 12/16/17 at 10:00; Stop 12/16/17 at 10:24; Status DC Polyethylene Glycol (Miralax) 17 gm DAILY PRN PO SEVERE CONSTIPATION; Start 08/23 at 18:00; Stop 01/19/18 at 09:02; Status DC Nifedipine (Procardia) 40 mg Q6HR .XX Last administered on 12/27/17at 05:22; Start 12/17/17 at 18:00; Stop 12/27/17 at 09:37; Status DC Oxycodone/ Acetaminophen (Percocet 5-325 Mg) 1 tab Q6H PRN PO PAIN 3 TO 5 Last administered on 01/17/18at 16:35; Start 12/22/17 at 15:00; Stop 01/19/18 at 09:02; Status DC Oxycodone/ Acetaminophen (Percocet 10-325 Mg) 1 tab Q6H PRN PO PAIN 6-10 Last administered on 01/19/18at 05:38; Start 12/22/17 at 15:00; Stop 01/19/18 at 09:02 ; Status DC Clonidine (Catapres-Tts 0.2 Mg Patch.7d) 1 patch Q7D T-DERMAL Last administered on 12/24/17at 12:34; Start 12/24/17 at 11:00; Stop 12/26/17 at 17:20 ; Status DC Miscellaneous Information 1 Q7D T-DERMAL ; Start 12/31/17 at 11:00; Stop at 11:00; Status DC Albuterol/ Ipratropium (Duoneb Neb) 1 ampule STK-MED ONCE .ROUTE ; Start at 18:07; Stop 12/24/17 at 18:08; Status DC Collagenase (Santyl Oint) 1 applic DAILY TOPICAL Last administered on at 09:47; Start 12/25/17 at 17:00 Sodium Hypochlorite (Dakin'S 0.5% Soln) 500 ml DAILY TOPICAL ; Start 12/25/17 at 17:00; Stop 12/25/17 at 17:51; Status DC Sodium Hypochlorite (Dakin'S 0.25% Soln) 500 ml DAILY TOPICAL Last administered on 01/05/18 09:35; Start 12/25/17 at 17:30; Stop 01/05/18 at 15:29; Status DC Clonidine (Catapres-Tts 0.1mg Patch.7d) 1 patch Q7D T-DERMAL Last administered on 12/26/17 18:09; Start 12/26/17 at 18:00; Stop 12/28/17 at 23:53; Status DC Miscellaneous Information 1 Q7D T-DERMAL Last administered on 12/26/17at 18:00; Start 12/26/17 at 18:00; Stop 12/28/17 at 23:53; Status DC Nifedipine (Procardia) 40 mg Q6HR .XX Last administered on 01/19/18 05:37; Start 12/27/17 at 12:00; Stop 01/19/18 at 09:00; Status DC Levofloxacin/ Dextrose 100 ml @ 100 mls/hr Q24H IV Last administered on at 20:07; Start 01/01/18 at 20:00; Stop 01/02/18 at 13:32; Status DC Levofloxacin (Levaquin) 750 mg DAILY PO Last administered on 01/02/18at 20:43; Start 01/02/18 at 20:00; Stop 01/03/18 at 08:11; Status DC Escitalopram Oxalate (Lexapro) 10 mg DAILY PEG Last administered on 01/19/18at 09:44; Start 01/02/18 at 17:15 Levofloxacin (Levaquin) 750 mg Q24H PEG ; Start 01/03/18 at 08:15; Stop at 08:15; Status DC Levofloxacin (Levaquin) 750 mg Q24H PEG Last administered on 01/16/18at 21:33; Start 01/03/18 at 20:00; Stop 01/16/18 at 21:00; Status DC Gadodiamide (Omniscan Pf Inj) 10 ml STK-MED ONCE IVCONTRAST Last administered on 01/06/18 09:20; Start 01/06/18 at 09:20; Stop 01/06/18 at 09:21; Status DC Metronidazole (Flagyl) 500 mg Q8H PO Last administered on 01/19/18at 02:26; Start 01/09/18 at 10:00; Stop 01/19/18 at 08:59; Status DC Diatrizoate Meglum/ Diatrizoate Sod (Md Rae Liq) 18 ml ONCE ONCE PO Last administered on 01/09/18at 12:26; Start 01/09/18 at 09:20; Stop 01/09/18 at 10: 26; Status DC Potassium Bicarb/ Potassium Chloride (K-Lyte Cl Eff) 25 meq ONCE ONCE PO Last administered on 01/09/18at 17:42; Start 01/09/18 at 16:00; Stop 01/09/18 at 16: 01; Status DC Iohexol (Omnipaque 350 Inj) 74 ml STK-MED ONCE IVCONTRAST Last administered on 01/09/18at 19:04; Start 01/09/18 at 19:03; Stop 01/09/18 at 19:04; Status DC Gadodiamide (Omniscan Pf Inj) 10 ml STK-MED ONCE IVCONTRAST Last administered on 01/11/18at 09:11; Start 01/11/18 at 09:11; Stop 01/11/18 at 09:12; Status DC Heparin Sodium (Porcine) (Heparin Inj) 5,000 units Q12HR SQ Last administered on 01/19/18at 20:00; Start 01/13/18 at 09:00 Lactobacillus Acidophilus (Lactinex Pkt) 1 gm TID PO Last administered on at 16:35; Start 01/12/18 at 18:00; Stop 01/19/18 at 08:59; Status DC Sodium Hypochlorite (Dakin'S 0.125% Soln) 50 ml DAILY TOPICAL Last administered on 01/19/18at 09:46; Start 01/13/18 at 20:00 Iohexol (Omnipaque 350 Inj) 15 ml STK-MED ONCE G-TUBE Last administered on 01/18at 17:42; Start 01/18/18 at 17:42; Stop 01/18/18 at 17:43; Status DC Lactobacillus Acidophilus (Lactinex Pkt) 1 gm TID PEG Last administered on 01/19at 16:52; Start 01/19/18 at 09:00; Stop 01/19/18 at 16:58; Status DC Metronidazole (Flagyl) 500 mg Q8H PEG Last administered on 01/20/18at 00:51; Start 01/19/18 at 09:00; Stop 02/05/18 at 23:00 Nifedipine (Procardia) 40 mg Q6HR PEG Last administered on 01/20/18at 06:36; Start 01/19/18 at 12:00 Oxycodone/ Acetaminophen (Percocet 5-325 Mg) 1 tab Q6H PRN PEG PAIN 3 TO 5 Last administered on 01/19/18at 18:21; Start 01/19/18 at 09:15 Oxycodone/ Acetaminophen (Percocet 10-325 Mg) 1 tab Q6H PRN PEG PAIN 6-10 Last administered on 01/20/18at 06:37; Start 01/19/18 at 09:15 Polyethylene Glycol (Miralax) 17 gm DAILY PRN PEG SEVERE CONSTIPATION; Start at 09:15 Hydrochlorothiazide (Hydrodiuril) 25 mg DAILY PEG Last administered on at 09:45; Start 01/19/18 at 09:03 Levofloxacin (Levaquin) 750 mg DAILY PO Last administered on 01/19/18at 16:51; Start 01/19/18 at 12:00; Stop 01/19/18 at 17:01; Status DC Fluconazole (Diflucan) 100 mg DAILY PO ; Start 01/20/18 at 09:00; Stop 01/20/18 at 09:00; Status DC Fluconazole (Diflucan) 200 mg ONCE ONCE PO Last administered on 01/19/18at 16: 51; Start 01/19/18 at 15:00; Stop 01/19/18 at 15:01; Status DC Lactobacillus Acidophilus (Lactinex) 1 tab TID PEG Last administered on at 18:20; Start 01/19/18 at 18:00 Fluconazole (Diflucan) 100 mg DAILY PEG ; Start 01/20/18 at 09:00; Stop at 08:59 Levofloxacin (Levaquin) 750 mg DAILY@1200 PEG ; Start 01/20/18 at 12:00; Stop at 11:59 A/P Problem List: (1) Major neurocognitive disorder ICD Code: F03.90 - Unspecified dementia without behavioral disturbance (2) Hemiparesis ICD Code: G81.90 - Hemiplegia, unspecified affecting unspecified side Status: Acute (3) Intracranial hemorrhage ICD Code: I62.9 - Nontraumatic intracranial hemorrhage, unspecified Status: Chronic (4) Aphasia ICD Code: R47.01 - Aphasia Assessment and Plan 62-year-old female with history of hemorrhagic stroke and resulting neurocognitive decline. Status post hemorrhagic CVA, new acute and subacute stroke with chronic right hemiplegia and aphasia. Questionable new facial droop on 01/10; Brain MRI 01/11 showed acute to subacute left thalamic infarct with mild hemorrhagic component in patient with previous history of relatively large left thalamic CVA Neuro and neurosurgery consulted; no surgical intervention needed. Agreed to pharmacologic prophylaxis Facial droop improved NURSE FEELS IS WORSE- WILL GET CAT SCAN OF BRAIN 01-20 UTI Ctx growing Enterobacter aerogenes. Patient received Levaquin x 14 days (01/03-) Repeat urinalysis showed Yenifer anticoagulates negative staph. We will start Diflucan today, still on Levaquin (for sacral wound) replace Cruz catheter after Diflucan started Pt remains afebrile Vomiting Resolved Zofran PRN Stage IV sacral pressure ulcer MRI showing bony edema and marrow replacement concerning for osteomyelitis; ID following, continue Levaquin and Flagyl until February Wound care following, S/P bedside debridement 01/11 History of hemorrhagic CVA Continue PT, OT, and ST Poor prognosis. Patient does not participate well with therapy Palliative care following Dysphagia Due to hemorrhagic stroke Status post PEG placement on 05/09/17, PEG tube out 01/18/2018, consult invasive radiology for PEG tube reinsertion, medically necessary. Continue tube feedings HTN Continue nifedipine 40 mg Q6H, Apresoline 50 mg Q6H, Metoprolol 100 mg BID, HCTZ 25 mg Daily Vasotec IV PRN, Clonidine PRN Hyperglycemia Glucerna for tube feeds Follow blood sugars intermittently Xeroderma on bilateral feet Lac-Hydrin 12% Lotion continued Depression Continue Lexapro 10 mg via PEG daily Nutrition Tube feeds changed to Glucerna 1.5 , bolus feeding with Tyshawn POOR URINE OUTPUT WILL GIVE IV FLUIDS 01-20 DVT Prophylaxis Heparin (cleared by neurosurgery) SUBQ BID Discharge Planning Patient was homeless prior to admit Poor access for inpatient rehabilitation Family desires aggressive measures for therapy and placement Independent funding unavailable for placement Long-term prognosis is poor No significant capacity for regaining full functionality Palliative care following Very poor prognosis. Patient does not display any meaningful involvement with therapy. Difficult DC. Awaiting placement Harry Vargas DO Jan 20, 2018 08:59
[2018-01-20] MEDS ORDERED: FLUCONAZOLE 100 MG TAB PO SCH (09:00)
[2018-01-20] MEDS: HEPARIN SODIUM - SQ 10,000 UNITS/ML VIAL SQ SCH ×2 (09:00→21:13)
[2018-01-20] MEDS: METOPROLOL TARTRATE 25 MG TAB PEG SCH ×2 (09:00→21:13)
[2018-01-20] MEDS: HYDROCHLOROTHIAZIDE 25 MG TAB PEG SCH (09:00)
[2018-01-20] MEDS: FLUCONAZOLE 100 MG TAB PEG SCH (09:23)
[2018-01-20] MEDS: LACTOBACILLUS ACIDOPHILUS TAB PEG SCH ×3 (09:23→17:33)
[2018-01-20] MEDS: LANSOPRAZOLE SOLUTAB 30 MG TAB G-TUBE SCH (09:23)
[2018-01-20] MEDS: ESCITALOPRAM OXALATE 10 MG TAB PEG SCH (09:23)
[2018-01-20] MEDS: COLLAGENASE OINT 30 GM TUBE TOPICAL SCH (09:24)
[2018-01-20] MEDS: LACTIC ACID (AMMONIUM LACTATE) 12% LOTION 225 GM BTL TOPICAL SCH ×2 (09:24→21:14)
[2018-01-20] MEDS: SODIUM HYPOCHLORITE 0.125% 500 ML BTL TOPICAL SCH (09:24)
[2018-01-20] MEDS: LEVOFLOXACIN 750 MG TAB PEG SCH (11:49)
[2018-01-20] MEDS: SODIUM CHLOR 0.9% 1000 ML INJ 1,000 ML IV SCH ×2 (17:33→20:55)
[2018-01-21] VITALS: BP 130/88; PULSE 86; RESP 20; TEMP 97.5; O2SAT 96
[2018-01-21] MEDS: metroNIDAZOLE 500 MG TAB PEG SCH ×3 (00:19→15:21)
[2018-01-21 04:00] VITALS: BP 138/97; PULSE 86; RESP 20; TEMP 99; O2SAT 95
[2018-01-21] MEDS: hydrALAZINE HCL 100 MG TAB PEG SCH ×3 (05:34→21:14)
[2018-01-21] MEDS: oxyCODONE/ACETAMINOPHEN 10 MG/325 MG TAB PEG PRN (05:34)
[2018-01-21] MEDS: FREE WATER G-TUBE SCH ×3 (05:34→17:10)
[2018-01-21] MEDS: NIFEdipine 20 MG CAP PEG SCH ×4 (05:35→17:12)
[2018-01-21 08:00] VITALS: BP 136/87; PULSE 88; RESP 14; TEMP 97.9; O2SAT 98
[2018-01-21] MEDS: HYDROCHLOROTHIAZIDE 25 MG TAB PEG SCH (09:49)
[2018-01-21] MEDS: ESCITALOPRAM OXALATE 10 MG TAB PEG SCH (09:50)
[2018-01-21] MEDS: METOPROLOL TARTRATE 25 MG TAB PEG SCH ×2 (09:50→21:15)
[2018-01-21] MEDS: HEPARIN SODIUM - SQ 10,000 UNITS/ML VIAL SQ SCH ×2 (09:50→21:14)
[2018-01-21] MEDS: FLUCONAZOLE 100 MG TAB PEG SCH (09:51)
[2018-01-21] MEDS: LACTOBACILLUS ACIDOPHILUS TAB PEG SCH ×3 (09:51→17:10)
[2018-01-21] MEDS: LANSOPRAZOLE SOLUTAB 30 MG TAB G-TUBE SCH (09:51)
[2018-01-21] MEDS: SODIUM CHLOR 0.9% 1000 ML INJ 1,000 ML IV SCH ×2 (09:53→23:03)
[2018-01-21] MEDS: LEVOFLOXACIN 750 MG TAB PEG SCH (09:53)
[2018-01-21] MEDS: SODIUM HYPOCHLORITE 0.125% 500 ML BTL TOPICAL SCH (09:53)
[2018-01-21] MEDS: COLLAGENASE OINT 30 GM TUBE TOPICAL SCH (09:53)
[2018-01-21] MEDS: LACTIC ACID (AMMONIUM LACTATE) 12% LOTION 225 GM BTL TOPICAL SCH ×2 (09:54→21:16)
[2018-01-21 12:00] VITALS: BP 124/62; PULSE 83; RESP 14; TEMP 98; O2SAT 99
--- NOTE | 2018-01-21 14:46 | HHI.PR ---
Subjective Remarks RN CONCERNED ABOUT WORSENING BLOOD PRESSURE-HYPOTENSION AND FACIAL DROOP WILL GIVE IV FLUIDS NS AT 84ML/HR WILL GET CAT SCAN OF BRAIN HAS DECREASED URINE OUTPUT MONITOR BLOOD PRESSURES AND URINE OUTPUT 01-21 BLOOD PRESSURE IS STABLE DW RN NO NEW COMPLAINTS Objective Vitals Vital Signs Date Time Temp Pulse Resp B/P (MAP) Pulse Ox O2 Delivery O2 Flow Rate FiO2 01/21/18 06:30 20 01/21/18 04:00 99.0 86 20 138/97 (111) 95 01/21/18 00:00 97.5 86 20 130/88 (102) 96 01/20/18 21:07 98.7 103 20 122/76 (91) 97 01/20/18 17:30 102 16 100/54 (69) 95 01/20/18 16:00 98.1 98 20 108/69 (82) 94 I/O 01/20/18 01/20/18 01/20/18 01/21/18 01/21/18 01/21/18 07:00 15:00 23:00 07:00 15:00 23:00 Intake Total 600 ml 660 ml 540 ml 750 ml Output Total 350 ml 0 ml 300.0 ml 400 ml Balance 250 ml 660 ml 240.0 ml 350 ml Intake Oral 0 ml 0 ml IV Total 0 ml 340 ml Tube Feeding 0 ml 440 ml 100 ml 150 ml Other 600 ml 220 ml 100 ml 600 ml Output Urine Total 350 ml 300 ml 400 ml Tube Feeding Residual Discard 0 ml 0 ml # Bowel Movements 1 1 2 Result Diagram: 01/17/18181301/17/181813 Imaging Last Impressions Chest X-Ray 01/19/18 0000 Signed Impressions: Service Date/Time: Friday, January 19, 2018 17:12 - CONCLUSION: Trace left base atelectasis. Hu Henderson MD Gastrostomy Tube Placement 01/18/18 0000 Signed Impressions: Service Date/Time: January 16:41 - CONCLUSION: Uncomplicated gastrostomy tube replacement through an existing tract. Timmy Dumas MD Brain MRI 01/11/18 0000 Signed Impressions: Service Date/Time: January 08:45 - CONCLUSION: 1. Focal area of restricted diffusion in the left thalmus characteristic of an acute to subacute infarct. 2. GRE images demonstrate subacute hemorrhage associated with the infarct in the left thalamus. 3. GRE images also demonstrate punctate areas of microhemorrhage noted in the deep right mid parietal lobe, right occipital lobe and bilateral basal ganglia regions, left greater than right. 4. Diffuse bilateral cortical atrophy and chronic white matter changes. Luciano Morales MD Head CT 01/10/18 0000 Signed Impressions: Service Date/Time: Wednesday, January 10, 2018 10:47 - CONCLUSION: Atrophy, chronic small vessel ischemic change, and prior areas of infarction. No acute intracranial abnormality. Phillip Patel Jr., MD Abdomen/Pelvis CT 01/09/18 0000 Signed Impressions: Service Date/Time: Tuesday, January 09, 2018 18:48 - CONCLUSION: 1. There is a sacral decubitus wound/ulcer which extends to the sacrum. Prior MRI demonstrated abnormal sacrum in the inferior aspect of the sacrum and coccyx. There is also presacral edema. These findings are highly suspicious for osteomyelitis. 2. Nonacute findings include 3 mm nonobstructing right renal stone and multi-fibroid uterus. Hu Cuenca MD Sacrum/Coccyx MRI 01/06/18 0000 Signed Impressions: Service Date/Time: Saturday, January 06, 2018 08:30 - CONCLUSION: Large decubitus ulcer posteriorly with not only bony edema and marrow replacement concerning for osteomyelitis but it extends to the presacral fat is well where there is marked enhancement and fluid on the T2-weighted sequences. The coccygeal involvement is at least 3.5 cm in length. Eliud Du MD Abdomen X-Ray 12/13/17 0000 Signed Impressions: Service Date/Time: Wednesday, December 13, 2017 14:17 - CONCLUSION: PEG tube in stomach.. Harry Dumas MD FACR Upper Extremity Ultrasound 11/06/17 0000 Signed Impressions: Service Date/Time: Monday, November 06, 2017 14:17 - CONCLUSION: Normal examination. K. Byron Perez MD Pelvis CT 10/13/17 0000 Signed Impressions: Service Date/Time: Friday, October 13, 2017 12:02 - CONCLUSION: 1. Decubitus ulcer with small abscess in the right posterior perineal region measuring 3.1 x 4.6 cm. There is also a small abscess posterior and to the left of the rectum measuring 3.2 x 2.3 cm. Jann Weber MD Neck CTA 04/10/17 0000 Signed Impressions: Service Date/Time: Monday, April 10, 2017 22:28 - CONCLUSION: The internal carotid arteries are normal bilaterally. No significant atherosclerotic disease is noted. Eliud Du MD Head CTA 04/10/17 0000 Signed Impressions: Service Date/Time: Monday, April 10, 2017 22:50 - CONCLUSION: Mild dilatation of the basilar tip without discrete aneurysm. Some narrowing of the left middle cerebral branch after the bifurcation. Prominent left thalamic hemorrhage. Eliud Du MD Objective Remarks GENERAL: Patient lying in CHAIR, appears comfortable -HER VOICE IS very soft- spoken can be heard with my stethoscope only SKIN: Warm and dry. HEAD: Atraumatic. Normocephalic. EYES: Pupils equal and round. No scleral icterus. No injection or drainage. ENT: No nasal bleeding or discharge. Mucous membranes pink and moist. NECK: Trachea midline. No JVD. Supple CARDIOVASCULAR: Regular rate and rhythm. S1 and S2 no S3 or S4 RESPIRATORY: No accessory muscle use. Clear to auscultation. Breath sounds equal bilaterally. GASTROINTESTINAL: Abdomen soft, non-tender, nondistended. Hepatic and splenic margins not palpable. PEG tube in place--Cruz catheter in place MUSCULOSKELETAL: Extremities without clubbing, cyanosis, or edema. No obvious deformities. 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 No obvious cranial nerve deficits. Normal speech but very very soft. PSYCHIATRIC: Appropriate mood and affect; insight and judgment ABnormal. Procedures Peg Tube placed 05/08/17 (Dr. De Los Santos) Medications and IVs Current Medications Sodium Chloride (NS Flush) 2 ml UNSCH PRN IVF FLUSH AFTER USING IV ACCESS; Start 04/10/17 at 20:00; Stop 04/10/17 at 22:12; Status DC Nicardipine HCl 25 mg/Sodium Chloride 260 ml @ 0 mls/hr TITRATE IV Last administered on 04/10/17 21:34; Start 04/10/17 at 20:00; Stop 04/10/17 at 22:12; Status DC Sodium Chloride 1,000 ml @ 84 mls/hr [id number] IV Last administered on 04/11/17 07:47; Start 04/10/17 at 22:00; Stop 04/11/17 at 15:41; Status DC Sodium Chloride (NS Flush) 2 ml UNSCH PRN .XX FLUSH AFTER USING IV ACCESS Last administered on 05/01/17 04:49; Start 04/10/17 at 22:00; Stop 05/26/17 at 10:07 ; Status DC Sodium Chloride (NS Flush) 2 ml BID .XX Last administered on 05/26/17 09:54; Start 04/11/17 at 09:00; Stop 05/26/17 at 10:07; Status DC Acetaminophen (Tylenol) 650 mg Q6H PRN PO PAIN 1-10 AND/OR FEVER >101F Last administered on 04/26/17 13:46; Start 04/10/17 at 22:00; Stop 06/16/17 at 10:03 ; Status DC Morphine Sulfate (Morphine Inj) 2 mg Q2H PRN IV PAIN SCALE 6 TO 10 Last administered on 05/25/17 21:09; Start 04/10/17 at 22:00; Stop 05/26/17 at 10:07 ; Status DC Famotidine (Pepcid Inj) 20 mg Q12HR IV PUSH Last administered on 05/04/17 08: 37; Start 04/11/17 at 09:00; Stop 05/04/17 at 14:13; Status DC Ondansetron HCl (Zofran Inj) 4 mg Q6H PRN IV NAUSEA OR VOMITING; Start 04/10/17 at 22:00; Stop 05/26/17 at 10:07; Status DC Metoclopramide HCl (Reglan Inj) 10 mg Q6H PRN IV NAUSEA OR VOMITING; Start 04/10 at 22:00; Stop 05/26/17 at 10:07; Status DC Prochlorperazine (Compazine Supp) 25 mg Q12H PRN RECTAL NAUSEA OR VOMITING; Start 04/10/17 at 22:00; Stop 05/26/17 at 10:07; Status DC Albuterol/ Ipratropium (Duoneb Neb) 1 ampule Q2HR NEB PRN INH WHEEZING; Start 04/10/17 at 22:00; Stop 05/26/17 at 10:07; Status DC Miscellaneous Information 1 [id number] XX Last administered on 04/10/17 22:00; Start 04/10/17 at 22:00; Stop 05/26/17 at 10:07; Status DC Chlorhexidine Gluconate (Chlorhexidine 2% Cloth) Taper DAILY@04 TOP Last administered on 05/21/17 04:00; Start 04/11/17 at 04:00; Stop 05/26/17 at 10:07 ; Status DC Chlorhexidine Gluconate (Chlorhexidine 2% Cloth) 3 pack UNSCH PRN TOP HYGIENIC CARE; Start 04/10/17 at 22:00; Stop 05/26/17 at 10:07; Status DC Senna/Docusate Sodium (Evelyn-Colace) 1 tab BID PO Last administered on 09:20; Start 04/11/17 at 09:00; Stop 06/16/17 at 10:03; Status DC Magnesium Hydroxide (Milk Of Magnesia Liq) 30 ml Q12H PRN PO MILD - MODERATE CONSTIPATION; Start 04/10/17 at 22:00; Stop 05/26/17 at 10:07; Status DC Sennosides (Senokot) 17.2 mg Q12H PRN PO MODERATE - SEVERE CONSTIPATION Last administered on 05/08/17 21:29; Start 04/10/17 at 22:00; Stop 05/26/17 at 10:07; Status DC Bisacodyl (Dulcolax Supp) 10 mg DAILY PRN RECTAL SEVERE CONSITIPATION; Start at 22:00 Lactulose (Lactulose Liq) 30 ml DAILY PRN PO SEVERE CONSITIPATION Last administered on 04/24/17 08:44; Start 04/10/17 at 22:00; Stop 06/16/17 at 10:03 ; Status DC Nicardipine HCl 25 mg/Sodium Chloride 260 ml @ 0 mls/hr TITRATE IV Last administered on 04/14/17 04:35; Start 04/10/17 at 22:15; Stop 04/14/17 at 12:18; Status DC Iohexol (Omnipaque 350 Inj) 70 ml STK-MED ONCE IV Last administered on 22:35; Start 04/10/17 at 22:35; Stop 04/10/17 at 22:36; Status DC Labetalol HCl (Trandate Inj) 20 mg Q4H PRN IV PUSH sbp>160 Last administered on 04/17/17 02:24; Start 04/12/17 at 08:15; Stop 04/25/17 at 18:06; Status DC Hydralazine HCl (Apresoline Inj) 20 mg Q4H PRN IV PUSH sbp>150 Last administered on 05/17/17 20:39; Start 04/12/17 at 08:15; Stop 05/18/17 at 14:44 ; Status DC Amlodipine Besylate (Norvasc) 5 mg DAILY PO Last administered on 04/14/17 08:55 ; Start 04/12/17 at 09:00; Stop 04/15/17 at 06:44; Status DC Metoclopramide HCl (Reglan Inj) 5 mg Q8HR IV PUSH Last administered on 14:02; Start 04/12/17 at 16:00; Stop 05/04/17 at 14:13; Status DC Potassium Chloride 100 ml @ 50 mls/hr Q2H PRN IV For Potassium 2.8 - 3.2 mEq/L ; Start 04/13/17 at 11:45; Stop 04/25/17 at 11:32; Status DC Potassium Chloride 100 ml @ 50 mls/hr Q2H PRN IV For Potassium 2.8 - 3.2 mEq/ L Last administered on 04/14/17 13:06; Start 04/13/17 at 11:45; Stop 04/25/17 at 11:32; Status DC Potassium Bicarb/ Potassium Chloride (K-Lyte Cl Eff) 50 meq UNSCH PRN PO For Potassium 3.3 - 3.5 mEq/L Last administered on 04/19/17 14:03; Start 04/13/17 at 11:45; Stop 04/25/17 at 11:32; Status DC Potassium Chloride 100 ml @ 25 mls/hr UNSCH PRN IV For Potassium 3.3 - 3.5 mEq /L; Start 04/13/17 at 11:45; Stop 04/25/17 at 11:32; Status DC Potassium Chloride 100 ml @ 50 mls/hr Q2H PRN IV For Potassium 3.3 - 3.5 mEq/L ; Start 04/13/17 at 11:45; Stop 04/25/17 at 11:32; Status DC Magnesium Sulfate 4 gm/Sodium Chloride 100 ml @ 50 mls/hr UNSCH PRN IV For Magnesium 0.9 - 1.1 mg/dL; Start 04/13/17 at 11:45; Stop 04/25/17 at 11:32; Status DC Magnesium Oxide (Mag-Ox) 800 mg UNSCH PRN PO For Magnesium 1.2 - 1.6 mg/dL; Start 04/13/17 at 11:45; Stop 04/25/17 at 11:32; Status DC Magnesium Sulfate 2 gm/Sodium Chloride 100 ml @ 50 mls/hr UNSCH PRN IV For Magnesium 1.2 - 1.6 mg/dL; Start 04/13/17 at 11:45; Stop 04/25/17 at 11:32; Status DC Potassium Phosphate (K-Phos) 2,000 mg Q4H PRN PO For Phosphorus < 2.5 mg/dL; Start 04/13/17 at 11:45; Stop 04/25/17 at 11:32; Status DC Sodium Phosphate 30 mmol/Sodium Chloride 250 ml @ 42 mls/hr UNSCH PRN IV For Phosphorus < 2.5 mg/dL; Start 04/13/17 at 11:45; Stop 04/25/17 at 11:32; Status DC Potassium Phosphate (K-Phos) 2,000 mg UNSCH PRN PO/TUBE SEE LABEL COMMENTS; Start 04/13/17 at 11:45; Stop 04/25/17 at 11:32; Status DC Potassium Phosphate 30 mmol/ Sodium Chloride 260 ml @ 42 mls/hr UNSCH PRN IV SEE LABEL COMMENTS; Start 04/13/17 at 11:45; Stop 04/25/17 at 11:32; Status DC Metoprolol Tartrate (Lopressor) 25 mg Q8HR PO Last administered on 04/14/17 05: 40; Start 04/13/17 at 14:00; Stop 04/14/17 at 12:18; Status DC Hydralazine HCl (Apresoline) 50 mg Q8H PO Last administered on 04/14/17 03:23; Start 04/13/17 at 12:00; Stop 04/14/17 at 09:23; Status DC Hydralazine HCl (Apresoline) 100 mg Q8H PO Last administered on 04/14/17 11:25 ; Start 04/14/17 at 12:00; Stop 04/14/17 at 19:47; Status DC Metoprolol Tartrate (Lopressor) 50 mg Q8HR PO Last administered on 04/24/17 05 :27; Start 04/14/17 at 14:00; Stop 04/24/17 at 09:28; Status DC Hydralazine HCl (Apresoline Inj) 20 mg ONCE ONCE IV PUSH Last administered on 04/14/17 17:42; Start 04/14/17 at 17:15; Stop 04/14/17 at 17:32; Status DC Labetalol HCl (Trandate Inj) 10 mg ONCE ONCE IV PUSH Last administered on 17:42; Start 04/14/17 at 17:15; Stop 04/14/17 at 17:32; Status DC Clonidine (Catapres) 0.3 mg ONCE ONCE PO Last administered on 04/14/17 17:50; Start 04/14/17 at 17:15; Stop 04/14/17 at 17:32; Status DC Clonidine (Catapres) 0.2 mg Q8HR PO ; Start 04/14/17 at 22:00; Stop 04/14/17 at 22 :00; Status DC Clonidine (Catapres) 0.3 mg Q8HR PO Last administered on 04/26/17 05:55; Start 04/14/17 at 22:00; Stop 04/26/17 at 14:39; Status DC Hydralazine HCl (Apresoline) 100 mg Q6HR PO Last administered on 04/15/17 10: 39; Start 04/15/17 at 00:00; Stop 04/15/17 at 13:10; Status DC Amlodipine Besylate (Norvasc) 10 mg DAILY PO Last administered on 06/12/17 07: 39; Start 04/14/17 at 19:45; Stop 06/12/17 at 07:56; Status DC Enalaprilat (Vasotec Inj) 1.25 mg Q6H PRN IV PUSH SBP>160, DBP>90 Last administered on 05/13/17 01:22; Start 04/15/17 at 01:15; Stop 05/26/17 at 10:07 ; Status DC Nitroglycerin (Nitroglycerin 2% Oint) 2 inch Q6HR PRN TOPICAL SBP>160, DBP>90 Last administered on 04/16/17 12:34; Start 04/15/17 at 06:00; Stop 05/26/17 at 10:07; Status DC Hydralazine HCl (Apresoline) 100 mg Q8HR PO Last administered on 04/26/17 05: 55; Start 04/15/17 at 14:00; Stop 04/26/17 at 14:39; Status DC Lisinopril (Prinivil) 20 mg DAILY PO Last administered on 04/16/17 08:32; Start 04/15/17 at 13:30; Stop 04/16/17 at 14:58; Status DC Lisinopril (Prinivil) 20 mg ONCE ONCE PO Last administered on 04/16/17 15:27 ; Start 04/16/17 at 15:00; Stop 04/16/17 at 15:03; Status DC Lisinopril (Prinivil) 40 mg BID PO Last administered on 04/20/17 09:09; Start 04/16/17 at 21:00; Stop 04/20/17 at 16:42; Status DC Hydrochlorothiazide (Hydrodiuril) 25 mg DAILY PO Last administered on 08:59; Start 04/17/17 at 17:45; Stop 04/18/17 at 16:28; Status DC Hydrochlorothiazide (Hydrodiuril) 25 mg ONCE ONCE PO Last administered on 04/18 16:51; Start 04/18/17 at 16:30; Stop 04/18/17 at 16:32; Status DC Hydrochlorothiazide (Hydrodiuril) 50 mg DAILY PO Last administered on 08:50; Start 04/19/17 at 09:00; Stop 04/25/17 at 18:06; Status DC Lisinopril (Prinivil) 30 mg BID PO Last administered on 04/25/17 08:50; Start 04/20/17 at 21:00; Stop 04/25/17 at 18:06; Status DC Miscellaneous (Pill Splitter) 1 ea UNSCH PRN OTHER SEE LABEL COMMENTS; Start at 17:15; Stop 10/18/17 at 09:37; Status DC Ceftriaxone Sodium 1000 mg/ Sodium Chloride 100 ml @ 200 mls/hr HS IV Last administered on 04/29/17 22:04; Start 04/22/17 at 21:30; Stop 04/30/17 at 12:37 ; Status DC Metoprolol Tartrate (Lopressor) 50 mg BID PO Last administered on 05/26/17 09: 54; Start 04/24/17 at 21:00; Stop 05/26/17 at 10:12; Status DC Lisinopril (Prinivil) 20 mg DAILY PO Last administered on 04/27/17 09:52; Start 04/26/17 at 09:00; Stop 04/28/17 at 00:21; Status DC Clonidine (Catapres) 0.2 mg Q8HR PO Last administered on 05/26/17 05:57; Start 04/26/17 at 22:00; Stop 05/26/17 at 10:12; Status DC Hydralazine HCl (Apresoline) 50 mg Q8HR PO Last administered on 04/27/17 12:45 ; Start 04/26/17 at 22:00; Stop 04/27/17 at 15:31; Status DC Hydralazine HCl (Apresoline) 100 mg Q8HR PO Last administered on 06/10/17 06:18 ; Start 04/27/17 at 22:00; Stop 06/10/17 at 12:03; Status DC Lisinopril (Prinivil) 40 mg DAILY PO Last administered on 06/16/17 09:20; Start 04/28/17 at 09:00; Stop 06/16/17 at 10:03; Status DC Famotidine (Pepcid) 20 mg BID NG Last administered on 05/09/17 09:36; Start at 21:00; Stop 05/09/17 at 12:49; Status DC Lactic Acid (Lac-Hydrin 12% Lotion) 1 applic BID TOPICAL Last administered on at 09:54; Start 05/04/17 at 14:00 Cefazolin Sodium 1000 mg/Sodium Chloride 100 ml @ 200 mls/hr SENIOR GAME ADVISOR IV ; Start 05/06/17 at 10:30; Stop 05/09/17 at 10:29; Status DC Cefazolin Sodium (Ancef Inj) 1,000 mg STK-MED ONCE IV Last administered on 15:00; Start 05/08/17 at 15:00; Stop 05/08/17 at 15:08; Status DC Propofol (Diprivan 200 Mg/20 ml Inj) 150 mg STK-MED ONCE IV PUSH ; Start at 15:27; Stop 05/08/17 at 15:45; Status DC Lansoprazole (Prevacid Odt) 30 mg DAILY G-TUBE Last administered on 01/21/18 09:51; Start 05/10/17 at 09:00 Nystatin (Mycostatin Liq) 5 ml QID SWISH-SWAL Last administered on 05/22/17 09:36; Start 05/14/17 at 13:00; Stop 05/22/17 at 11:19; Status DC Hydralazine HCl (Apresoline) 25 mg Q4HR PRN PEG for sbp greater than 150 Last administered on 11/04/17 14:28; Start 05/18/17 at 14:45 Clonidine (Catapres) 0.1 mg Q6H PRN PO for SBP greater than 170 Last administered on 05/22/17 02:48; Start 05/21/17 at 07:30; Stop 05/26/17 at 10:12 ; Status DC Nystatin (Mycostatin Liq) 5 ml QID SWISH-SWAL Last administered on 05/28/17 09:43; Start 05/23/17 at 13:00; Stop 05/28/17 at 10:02; Status DC Ondansetron HCl (Zofran Liq) 4 mg Q6H PRN PEG NAUSEA OR VOMITING Last administered on 01/14/18 08:51; Start 05/26/17 at 10:00 Metoprolol Tartrate (Lopressor) 75 mg BID PO Last administered on 05/28/17 09: 43; Start 05/26/17 at 21:00; Stop 05/28/17 at 09:58; Status DC Clonidine (Catapres-Tts 0.2 Mg Patch.7d) 1 patch Q7D T-DERMAL Last administered on 06/02/17 11:27; Start 05/26/17 at 12:00; Stop 06/06/17 at 12:47 ; Status DC Miscellaneous Information 1 Q7D T-DERMAL Last administered on 06/02/17 11:28; Start 06/02/17 at 12:00; Stop 06/06/17 at 13:31; Status DC Metoprolol Tartrate (Lopressor) 100 mg BID PO Last administered on 06/16/17 09 :20; Start 05/28/17 at 21:00; Stop 06/16/17 at 10:03; Status DC Fluconazole (Diflucan) 200 mg DAILY PO Last administered on 06/03/17 08:44; Start 05/28/17 at 11:00; Stop 06/04/17 at 08:59; Status DC Levofloxacin (Levaquin Liq) 750 mg Q24H PEG ; Start 05/29/17 at 11:00; Stop at 15:05; Status DC Levofloxacin (Levaquin Liq) 750 mg DAILY@16 PEG Last administered on 16:20; Start 05/29/17 at 16:00; Stop 06/04/17 at 16:01; Status DC Sodium Chloride 500 ml @ 500 mls/hr BOLUS ONCE IV Last administered on 15:43; Start 06/01/17 at 11:30; Stop 06/01/17 at 12:29; Status DC Sodium Chloride 1,000 ml @ 100 mls/hr Q10H IV Last administered on 06/03/17 06:17; Start 06/02/17 at 11:15; Stop 06/03/17 at 10:16; Status DC Clonidine (Catapres-Tts 0.3 Mg Patch.7d) 1 patch Q7D T-DERMAL Last administered on 12/19/17 17:32; Start 06/06/17 at 15:00; Stop 12/24/17 at 09:54 ; Status DC Miscellaneous Information 1 Q7D T-DERMAL Last administered on 12/19/17at 15:00; Start 06/06/17 at 15:00; Stop 12/24/17 at 09:54; Status DC Hydralazine HCl (Apresoline) 100 mg Q6HR PO Last administered on 06/16/17 06: 20; Start 06/10/17 at 18:00; Stop 06/16/17 at 10:03; Status DC Nifedipine (Procardia Xl) 60 mg DAILY PO Last administered on 06/15/17 10:04; Start 06/12/17 at 09:00; Stop 06/16/17 at 10:03; Status DC Acetaminophen (Tylenol) 650 mg Q6H PRN PEG PAIN 1-10 AND/OR FEVER >101F Last administered on 10/17/17 19:29; Start 06/16/17 at 16:00; Status Future Hold Senna/Docusate Sodium (Evelyn-Colace) 1 tab BID PEG Last administered on 09:42; Start 06/16/17 at 21:00; Stop 06/28/17 at 10:38; Status DC Hydralazine HCl (Apresoline) 100 mg Q6HR PEG Last administered on 08/17/17 22 :43; Start 06/16/17 at 12:00; Stop 08/18/17 at 07:50; Status DC Lactulose (Lactulose Liq) 30 ml DAILY PRN PEG SEVERE CONSITIPATION; Start 06/16 at 10:00; Stop 08/17/17 at 08:28; Status DC Lisinopril (Prinivil) 40 mg DAILY PEG Last administered on 08/16/17 08:04; Start 06/17/17 at 09:00; Stop 08/18/17 at 07:50; Status DC Metoprolol Tartrate (Lopressor) 100 mg BID PEG Last administered on 11/21/17at 21:41; Start 06/16/17 at 21:00; Stop 11/23/17 at 11:24; Status DC Nifedipine (Procardia) 20 mg Q8HR PEG Last administered on 06/20/17 05:41; Start 06/16/17 at 14:00; Stop 06/20/17 at 14:35; Status DC Nifedipine (Procardia) 30 mg Q8HR .XX Last administered on 06/22/17 13:13; Start 06/20/17 at 22:00; Stop 06/22/17 at 13:14; Status DC Nifedipine (Procardia) 30 mg Q6HR .XX Last administered on 06/26/17 06:32; Start 06/22/17 at 18:00; Stop 06/26/17 at 11:22; Status DC Nifedipine (Procardia) 40 mg Q6HR PEG Last administered on 12/17/17at 11:55; Start 06/26/17 at 12:00; Stop 12/17/17 at 18:00; Status DC Sennosides (Senna Liq) 8.8 mg DAILY PEG Last administered on 10/17/17 10:02 ; Start 06/29/17 at 09:00; Status Future Hold Hydrochlorothiazide (Hydrodiuril) 25 mg DAILY PO Last administered on 07/07/17 08:49; Start 07/01/17 at 12:00; Stop 07/07/17 at 11:21; Status DC Hydrochlorothiazide (Hydrodiuril) 25 mg BID@ PEG Last administered on 07/21 17:17; Start 07/07/17 at 18:00; Stop 07/28/17 at 15:04; Status DC Potassium Bicarb/ Potassium Chloride (K-Lyte Cl Eff) 25 meq DAILY PEG Last administered on 07/22/17 09:54; Start 07/07/17 at 11:30; Stop 07/28/17 at 15:04 ; Status DC Hydrochlorothiazide (Hydrodiuril) 25 mg DAILY PO Last administered on 08:04; Start 08/04/17 at 12:30; Stop 08/18/17 at 07:50; Status DC Nystatin (Mycostatin Liq) 5 ml QID OTHER Last administered on 08/21/17 17:54 ; Start 08/13/17 at 18:00; Stop 08/21/17 at 18:00; Status DC Polyethylene Glycol (Miralax) 17 gm DAILY PRN PO severe constipation Last administered on 08/30/17 23:22; Start 08/17/17 at 08:30; Stop 12/09/17 at 09: 10; Status DC Hydralazine HCl (Apresoline) 100 mg Q8HR PEG Last administered on 08/19/17 06 :38; Start 08/18/17 at 14:00; Stop 08/19/17 at 07:53; Status DC Lisinopril (Prinivil) 20 mg BID PEG ; Start 08/18/17 at 09:00; Stop 08/19/17 at 07:53; Status DC Hydralazine HCl (Apresoline) 50 mg Q6HR PEG Last administered on 12/10/17 23:28 ; Start 08/19/17 at 12:00; Stop 12/11/17 at 04:19; Status DC Lisinopril (Prinivil) 10 mg BID PEG Last administered on 11/15/17 08:28; Start 08/19/17 at 09:00; Stop 11/15/17 at 10:41; Status DC Hydrochlorothiazide (Hydrodiuril) 25 mg DAILY PO Last administered on 17:12; Start 08/20/17 at 15:00; Stop 08/21/17 at 08:35; Status DC Nystatin (Mycostatin Liq) 5 ml QID OTHER Last administered on 09/02/17 21:12 ; Start 08/23/17 at 18:00; Stop 09/03/17 at 09:51; Status DC Hydrochlorothiazide (Hydrodiuril) 25 mg DAILY PO Last administered on 10:34; Start 08/29/17 at 11:15; Stop 09/03/17 at 09:51; Status DC Hydrochlorothiazide (Microzide) 12.5 mg DAILY PO Last administered on 09:03; Start 09/04/17 at 09:00; Stop 09/04/17 at 13:23; Status DC Nystatin (Mycostatin Liq) 5 ml QID SWISH-SWAL Last administered on 10/17/17 14:28; Start 09/07/17 at 13:00; Stop 10/17/17 at 15:32; Status DC Hydrochlorothiazide (Microzide) 12.5 mg DAILY PO Last administered on 08:12; Start 09/15/17 at 11:45; Stop 09/27/17 at 09:00; Status DC Hydrochlorothiazide (Hydrodiuril) 25 mg DAILY PO Last administered on 10:27; Start 09/27/17 at 09:15; Stop 01/19/18 at 09:03; Status DC Vancomycin HCl 1000 mg/Sodium Chloride 250 ml @ 250 mls/hr ONCE ONCE IV Last administered on 10/10/17 11:28; Start 10/10/17 at 10:00; Stop 10/10/17 at 10:59 ; Status DC Pharmacy Profile Note 0 ml @ 0 mls/hr UNSCH OTHER ; Start 10/10/17 at 09:00; Stop 10/17/17 at 15:26; Status DC Potassium Bicarb/ Potassium Chloride (K-Lyte Cl Eff) 50 meq ONCE ONCE PEG Last administered on 10/10/17 10:14; Start 10/10/17 at 09:30; Stop 10/10/17 at 09:31; Status DC Vancomycin HCl 1250 mg/Sodium Chloride 262.5 ml @ 250 mls/hr Q12H IV Last administered on 10/11/17 18:08; Start 10/10/17 at 18:00; Stop 10/11/17 at 21:55 ; Status DC Miscellaneous Information SPECIFIC LAB TO BE DRAWN:VANCO TROUGH DATE TO BE ONCE ONCE .XX Last administered on 10/11/17 17:20; Start 10/11/17 at 17 :45; Stop 10/11/17 at 17:46; Status DC Piperacillin Sod/ Tazobactam Sod 50 ml @ 100 mls/hr Q6HR IV ; Start 10/10/17 at 12:00; Stop 10/10/17 at 14:07; Status DC Piperacillin Sod/ Tazobactam Sod 50 ml @ 100 mls/hr Q6HR IV Last administered on 10/22/17 05:38; Start 10/10/17 at 15:00; Stop 10/22/17 at 08:29; Status DC Vancomycin HCl 1000 mg/Sodium Chloride 250 ml @ 250 mls/hr Q12H IV Last administered on 10/14/17 06:03; Start 10/12/17 at 06:00; Stop 10/14/17 at 13:01 ; Status DC Miscellaneous Information SPECIFIC LAB TO BE .[place] ONCE ONCE .XX Last administered on 10/14/17 05:45; Start 10/14/17 at 05:45; Stop 10/14/17 at 05:46 ; Status DC Collagenase (Santyl Oint) 1 applic BID TOPICAL Last administered on 10/18/17 21:00; Start 10/12/17 at 09:00; Stop 10/19/17 at 08:47; Status DC Potassium Chloride/Sodium Chloride 1,000 ml @ 100 mls/hr Q10H IV Last administered on 10/16/17 20:57; Start 10/13/17 at 09:00; Stop 10/17/17 at 04: 36; Status DC Fluconazole/ Sodium Chloride 100 ml @ 100 mls/hr Q24H IV Last administered on 10/15/17 12:49; Start 10/13/17 at 12:00; Stop 10/16/17 at 07:19; Status DC Iohexol (Omnipaque 350 Inj) 85 ml STK-MED ONCE IVCONTRAST Last administered on 10/13/17 12:29; Start 10/13/17 at 12:29; Stop 10/13/17 at 12:30; Status DC Potassium Chloride 100 ml @ 50 mls/hr Q2H IV Last administered on 10/14/17 12 :51; Start 10/14/17 at 08:30; Stop 10/14/17 at 12:29; Status DC Potassium Bicarb/ Potassium Chloride (K-Lyte Cl Eff) 50 meq ONCE ONCE PEG Last administered on 10/14/17 10:48; Start 10/14/17 at 08:15; Stop 10/14/17 at 08:17; Status DC Vancomycin HCl 1250 mg/Sodium Chloride 262.5 ml @ 250 mls/hr Q12H IV Last administered on 10/14/17 18:20; Start 10/14/17 at 18:00; Stop 10/15/17 at 09: 15; Status DC Miscellaneous Information SPECIFIC LAB TO BE DRAWN:VANCO TROUGH DATE TO BE DR... ONCE ONCE .XX ; Start 10/16/17 at 05:45; Stop 10/16/17 at 05:46; Status Cancel Potassium Bicarb/ Potassium Chloride (K-Lyte Cl Eff) 50 meq ONCE ONCE PO Last administered on 10/15/17 11:45; Start 10/15/17 at 10:00; Stop 10/15/17 at 10:01; Status DC Vancomycin HCl 1250 mg/Sodium Chloride 262.5 ml @ 250 mls/hr Q12H IV Last administered on 10/17/17 10:01; Start 10/15/17 at 10:00; Stop 10/17/17 at 15 :26; Status DC Miscellaneous Information SPECIFIC LAB TO BE DRAWN:VANCOMYCIN TROUGH DATE TO... ONCE ONCE .XX Last administered on 10/16/17 21:45; Start 10/16/17 at 21:45 ; Stop 10/16/17 at 21:46; Status DC Ciprofloxacin (Cipro) 500 mg Q12HR PEG Last administered on 10/18/17 21:00; Start 10/16/17 at 09:00; Stop 10/19/17 at 09:14; Status DC Potassium Chloride/Sodium Chloride 1,000 ml @ 100 mls/hr Q10H IV Last administered on 10/17/17 10:02; Start 10/17/17 at 08:00; Stop 10/17/17 at 18 :32; Status DC Hydromorphone HCl (Dilaudid Pf Inj) 2 mg ONCE ONCE IV PUSH Last administered on 10/17/17 12:50; Start 10/17/17 at 12:15; Stop 10/17/17 at 12:16; Status DC Sodium Hypochlorite (Dakin'S 0.5% Soln) 500 ml ONCE ONCE TOPICAL Last administered on 10/17/17 14:28; Start 10/17/17 at 13:30; Stop 10/17/17 at 13 :35; Status DC Sodium Hypochlorite (Dakin'S 0.25% Soln) 50 ml BID TOPICAL Last administered on 10/18/17 21:00; Start 10/17/17 at 21:00; Stop 10/19/17 at 08:47; Status DC Morphine Sulfate (Morphine Inj) 2 mg BID PRN IV PUSH painful dressing changes Last administered on 10/20/17 09:23; Start 10/17/17 at 15:00; Stop 10/20/17 at 16:23; Status DC Benztropine Mesylate (Cogentin Inj) 0.5 mg HS IV PUSH ; Start 10/17/17 at 21:00 ; Stop 10/17/17 at 21:00; Status DC Naloxone HCl (Narcan Inj) 0.4 mg UNSCH X1 PRN IV PUSH RESP DEPRESSION OR HYPOTENSION; Start 10/17/17 at 17:30; Stop 10/20/17 at 17:29; Status DC Baclofen (Lioresal) 5 mg ONCE ONCE PO Last administered on 10/17/17 17:45; Start 10/17/17 at 17:45; Stop 10/17/17 at 17:46; Status DC Miscellaneous (Pill Splitter) 1 ea UNSCH PRN OTHER SEE LABEL COMMENTS Last administered on 12/08/17at 20:45; Start 10/17/17 at 17:45 Sodium Chloride 1,000 ml @ 42 mls/hr [id number] IV Last administered on 06:00; Start 10/18/17 at 10:00; Stop 10/24/17 at 15:36; Status DC Collagenase (Santyl Oint) 1 applic BID TOPICAL Last administered on 11/14/17 07 :57; Start 10/19/17 at 10:00; Stop 11/17/17 at 09:01; Status DC Water (Free Water) 150 ml Q6HR G-TUBE Last administered on 01/21/18 09:53; Start 10/19/17 at 12:00 Morphine Sulfate (Morphine Inj) 2 mg BID PRN IV PUSH painful dressing changes Last administered on 10/22/17 09:40; Start 10/20/17 at 16:30; Stop 10/23/17 at 17:45; Status DC Sodium Chloride 500 ml @ 50 mls/hr Q10H IV ; Start 10/20/17 at 17:30; Stop at 17:56; Status DC Sodium Chloride 500 ml @ 1,000 mls/hr BOLUS ONCE IV Last administered on 18:00; Start 10/20/17 at 18:00; Stop 10/20/17 at 18:29; Status DC Diphenhydramine HCl (Benadryl Liq) 50 mg ONCE ONCE PO Last administered on 01:05; Start 10/22/17 at 00:15; Stop 10/22/17 at 00:18; Status DC Piperacillin Sod/ Tazobactam Sod 3.375 gm/Sodium Chloride 100 ml @ 100 mls/hr Q6HR IV Last administered on 10/23/17 17:24; Start 10/22/17 at 12:00; Stop 10/23/17 at 17:45; Status DC Diphenhydramine HCl (Benadryl Inj) 25 mg ONCE ONCE IM Last administered on 17:54; Start 10/23/17 at 17:15; Stop 10/23/17 at 17:40; Status DC Potassium Bicarb/ Potassium Chloride (K-Lyte Cl Eff) 25 meq ONCE ONCE PO ; Start 10/23/17 at 17:45; Stop 10/23/17 at 17:57; Status DC Cefepime HCl 1000 mg/Sodium Chloride 100 ml @ 200 mls/hr Q12H IV Last administered on 11/10/17at 09:06; Start 10/23/17 at 20:00; Stop 11/10/17 at 19:59 ; Status DC Levofloxacin/ Dextrose 100 ml @ 100 mls/hr Q24H IV Last administered on 17:56; Start 10/24/17 at 18:00; Stop 11/10/17 at 17:59; Status DC Ketorolac Tromethamine (Toradol Inj) 15 mg DAILY IV PUSH Last administered on 10/28/17 13:45; Start 10/24/17 at 09:00; Stop 10/29/17 at 08:59; Status DC Prednisone (predniSONE LIQ) 10 mg BID PO ; Start 10/23/17 at 21:00; Stop 10/23 at 21:51; Status DC Potassium Bicarb/ Potassium Chloride (K-Lyte Cl Eff) 25 meq ONCE ONCE PEG Last administered on 10/23/17 18:02; Start 10/23/17 at 18:00; Stop 10/23/17 at 18:01; Status DC Prednisone (predniSONE LIQ) 10 mg BID G-TUBE Last administered on 10/24/17 09 :34; Start 10/24/17 at 09:00; Stop 10/24/17 at 15:36; Status DC Potassium Chloride/Sodium Chloride 1,000 ml @ 42 mls/hr [id number] IV Last administered on 10/25/17 11:37; Start 10/24/17 at 16:00; Stop 10/25/17 at 13 :32; Status DC Lisinopril (Prinivil) 10 mg BID PEG Last administered on 11/21/17at 21:41; Start 11/15/17 at 21:00; Stop 11/22/17 at 08:58; Status DC Sodium Chloride (NS Flush) 2 ml UNSCH PRN IV FLUSH FLUSH AFTER USING IV ACCESS Last administered on 01/04/18at 08:21; Start 11/17/17 at 10:15; Stop 01/19/18 at 09:03; Status DC Lisinopril (Prinivil) 5 mg BID PEG ; Start 11/22/17 at 09:15; Stop 11/23/17 at 11:24; Status DC Metoprolol Tartrate (Lopressor) 50 mg BID PEG Last administered on 11/23/17at 20 :50; Start 11/23/17 at 21:00; Stop 11/24/17 at 12:59; Status DC Metoprolol Tartrate (Lopressor) 25 mg BID PEG Last administered on 01/21/18at 09 :50; Start 11/24/17 at 21:00 Ceftriaxone Sodium 1000 mg/ Sodium Chloride 100 ml @ 200 mls/hr Q24H IV Last administered on 12/24/17at 08:43; Start 12/09/17 at 09:00; Stop 12/24/17 at 09:54 ; Status DC Polyethylene Glycol (Miralax) 17 gm DAILY PO Last administered on 12/14/17at 09: 08; Start 12/09/17 at 09:15; Stop 12/16/17 at 17:49; Status DC Hydralazine HCl (Apresoline) 50 mg Q6HR PEG Last administered on 12/12/17at 17:41 ; Start 12/11/17 at 06:00; Stop 12/12/17 at 19:14; Status DC Hydralazine HCl (Apresoline) 50 mg Q8HR PEG Last administered on 01/21/18at 05: 34; Start 12/12/17 at 22:00 Potassium Chloride/Dextrose/ Sod Cl 1,000 ml @ 84 mls/hr [id number] IV Last administered on 12/12/17at 20:40; Start 12/12/17 at 19:15; Stop 12/13/17 at 12:00; Status DC Diatrizoate Meglum/ Diatrizoate Sod ( Gastroview Liq) 120 ml STK-MED ONCE PEG ; Start 12/13/17 at 15:17; Stop 12/13/17 at 15:18; Status DC Potassium Bicarb/ Potassium Chloride (K-Lyte Cl Eff) 25 meq ONCE ONCE PO Last administered on 12/16/17at 09:56; Start 12/16/17 at 10:00; Stop 12/16/17 at 10:24; Status DC Polyethylene Glycol (Miralax) 17 gm DAILY PRN PO SEVERE CONSTIPATION; Start 08/23 at 18:00; Stop 01/19/18 at 09:02; Status DC Nifedipine (Procardia) 40 mg Q6HR .XX Last administered on 12/27/17at 05:22; Start 12/17/17 at 18:00; Stop 12/27/17 at 09:37; Status DC Oxycodone/ Acetaminophen (Percocet 5-325 Mg) 1 tab Q6H PRN PO PAIN 3 TO 5 Last administered on 01/17/18at 16:35; Start 12/22/17 at 15:00; Stop 01/19/18 at 09:02; Status DC Oxycodone/ Acetaminophen (Percocet 10-325 Mg) 1 tab Q6H PRN PO PAIN 6-10 Last administered on 01/19/18at 05:38; Start 12/22/17 at 15:00; Stop 01/19/18 at 09:02 ; Status DC Clonidine (Catapres-Tts 0.2 Mg Patch.7d) 1 patch Q7D T-DERMAL Last administered on 12/24/17at 12:34; Start 12/24/17 at 11:00; Stop 12/26/17 at 17:20 ; Status DC Miscellaneous Information 1 Q7D T-DERMAL ; Start 12/31/17 at 11:00; Stop at 11:00; Status DC Albuterol/ Ipratropium (Duoneb Neb) 1 ampule STK-MED ONCE .ROUTE ; Start at 18:07; Stop 12/24/17 at 18:08; Status DC Collagenase (Santyl Oint) 1 applic DAILY TOPICAL Last administered on at 09:53; Start 12/25/17 at 17:00 Sodium Hypochlorite (Dakin'S 0.5% Soln) 500 ml DAILY TOPICAL ; Start 12/25/17 at 17:00; Stop 12/25/17 at 17:51; Status DC Sodium Hypochlorite (Dakin'S 0.25% Soln) 500 ml DAILY TOPICAL Last administered on 01/05/18 09:35; Start 12/25/17 at 17:30; Stop 01/05/18 at 15:29; Status DC Clonidine (Catapres-Tts 0.1mg Patch.7d) 1 patch Q7D T-DERMAL Last administered on 12/26/17at 18:09; Start 12/26/17 at 18:00; Stop 12/28/17 at 23:53; Status DC Miscellaneous Information 1 Q7D T-DERMAL Last administered on 12/26/17at 18:00; Start 12/26/17 at 18:00; Stop 12/28/17 at 23:53; Status DC Nifedipine (Procardia) 40 mg Q6HR .XX Last administered on 01/19/18at 05:37; Start 12/27/17 at 12:00; Stop 01/19/18 at 09:00; Status DC Levofloxacin/ Dextrose 100 ml @ 100 mls/hr Q24H IV Last administered on at 20:07; Start 01/01/18 at 20:00; Stop 01/02/18 at 13:32; Status DC Levofloxacin (Levaquin) 750 mg DAILY PO Last administered on 01/02/18at 20:43; Start 01/02/18 at 20:00; Stop 01/03/18 at 08:11; Status DC Escitalopram Oxalate (Lexapro) 10 mg DAILY PEG Last administered on 01/21/18at 09:50; Start 01/02/18 at 17:15 Levofloxacin (Levaquin) 750 mg Q24H PEG ; Start 01/03/18 at 08:15; Stop at 08:15; Status DC Levofloxacin (Levaquin) 750 mg Q24H PEG Last administered on 01/16/18at 21:33; Start 01/03/18 at 20:00; Stop 01/16/18 at 21:00; Status DC Gadodiamide (Omniscan Pf Inj) 10 ml STK-MED ONCE IVCONTRAST Last administered on 01/06/18at 09:20; Start 01/06/18 at 09:20; Stop 01/06/18 at 09:21; Status DC Metronidazole (Flagyl) 500 mg Q8H PO Last administered on 01/19/18at 02:26; Start 01/09/18 at 10:00; Stop 01/19/18 at 08:59; Status DC Diatrizoate Meglum/ Diatrizoate Sod (Md Kyra Salguero) 18 ml ONCE ONCE PO Last administered on 01/09/18at 12:26; Start 01/09/18 at 09:20; Stop 01/09/18 at 10: 26; Status DC Potassium Bicarb/ Potassium Chloride (K-Lyte Cl Eff) 25 meq ONCE ONCE PO Last administered on 01/09/18 17:42; Start 01/09/18 at 16:00; Stop 01/09/18 at 16: 01; Status DC Iohexol (Omnipaque 350 Inj) 74 ml STK-MED ONCE IVCONTRAST Last administered on 01/09/18at 19:04; Start 01/09/18 at 19:03; Stop 01/09/18 at 19:04; Status DC Gadodiamide (Omniscan Pf Inj) 10 ml STK-MED ONCE IVCONTRAST Last administered on 01/11/18at 09:11; Start 01/11/18 at 09:11; Stop 01/11/18 at 09:12; Status DC Heparin Sodium (Porcine) (Heparin Inj) 5,000 units Q12HR SQ Last administered on 01/21/18at 09:50; Start 01/13/18 at 09:00 Lactobacillus Acidophilus (Lactinex Pkt) 1 gm TID PO Last administered on at 16:35; Start 01/12/18 at 18:00; Stop 01/19/18 at 08:59; Status DC Sodium Hypochlorite (Dakin'S 0.125% Soln) 50 ml DAILY TOPICAL Last administered on 01/21/18at 09:53; Start 01/13/18 at 20:00 Iohexol (Omnipaque 350 Inj) 15 ml STK-MED ONCE G-TUBE Last administered on 01/18at 17:42; Start 01/18/18 at 17:42; Stop 01/18/18 at 17:43; Status DC Lactobacillus Acidophilus (Lactinex Pkt) 1 gm TID PEG Last administered on 01/19at 16:52; Start 01/19/18 at 09:00; Stop 01/19/18 at 16:58; Status DC Metronidazole (Flagyl) 500 mg Q8H PEG Last administered on 01/21/18 09:51; Start 01/19/18 at 09:00; Stop 02/05/18 at 23:00 Nifedipine (Procardia) 40 mg Q6HR PEG Last administered on 01/21/18 09:53; Start 01/19/18 at 12:00 Oxycodone/ Acetaminophen (Percocet 5-325 Mg) 1 tab Q6H PRN PEG PAIN 3 TO 5 Last administered on 01/19/18at 18:21; Start 01/19/18 at 09:15 Oxycodone/ Acetaminophen (Percocet 10-325 Mg) 1 tab Q6H PRN PEG PAIN 6-10 Last administered on 01/21/18 05:34; Start 01/19/18 at 09:15 Polyethylene Glycol (Miralax) 17 gm DAILY PRN PEG SEVERE CONSTIPATION; Start at 09:15 Hydrochlorothiazide (Hydrodiuril) 25 mg DAILY PEG Last administered on at 09:49; Start 01/19/18 at 09:03 Levofloxacin (Levaquin) 750 mg DAILY PO Last administered on 01/19/18 16:51; Start 01/19/18 at 12:00; Stop 01/19/18 at 17:01; Status DC Fluconazole (Diflucan) 100 mg DAILY PO ; Start 01/20/18 at 09:00; Stop 01/20/18 at 09:00; Status DC Fluconazole (Diflucan) 200 mg ONCE ONCE PO Last administered on 01/19/18 16: 51; Start 01/19/18 at 15:00; Stop 01/19/18 at 15:01; Status DC Lactobacillus Acidophilus (Lactinex) 1 tab TID PEG Last administered on 09:51; Start 01/19/18 at 18:00 Fluconazole (Diflucan) 100 mg DAILY PEG Last administered on 01/21/18 09:51; Start 01/20/18 at 09:00; Stop 02/02/18 at 08:59 Levofloxacin (Levaquin) 750 mg DAILY@1200 PEG Last administered on 01/21/18 09 :53; Start 01/20/18 at 12:00; Stop 02/21/18 at 11:59 Sodium Chloride 1,000 ml @ 84 mls/hr [id number] IV Last administered on at 09:53; Start 01/20/18 at 09:00 A/P Problem List: (1) Major neurocognitive disorder ICD Code: F03.90 - Unspecified dementia without behavioral disturbance (2) Hemiparesis ICD Code: G81.90 - Hemiplegia, unspecified affecting unspecified side Status: Acute (3) Intracranial hemorrhage ICD Code: I62.9 - Nontraumatic intracranial hemorrhage, unspecified Status: Chronic (4) Aphasia ICD Code: R47.01 - Aphasia Assessment and Plan 62-year-old female with history of hemorrhagic stroke and resulting neurocognitive decline. Status post hemorrhagic CVA, new acute and subacute stroke with chronic right hemiplegia and aphasia. Questionable new facial droop on 01/10; Brain MRI 01/11 showed acute to subacute left thalamic infarct with mild hemorrhagic component in patient with previous history of relatively large left thalamic CVA Neuro and neurosurgery consulted; no surgical intervention needed. Agreed to pharmacologic prophylaxis Facial droop improved NURSE FEELS IS WORSE- WILL GET CAT SCAN OF BRAIN 01-20 UTI Ctx growing Enterobacter aerogenes. Patient received Levaquin x 14 days (01/03-) Repeat urinalysis showed Yenifer anticoagulates negative staph. We will start Diflucan today, still on Levaquin (for sacral wound) replace Cruz catheter after Diflucan started Pt remains afebrile Vomiting Resolved Zofran PRN Stage IV sacral pressure ulcer MRI showing bony edema and marrow replacement concerning for osteomyelitis; ID following, continue Levaquin and Flagyl until February Wound care following, S/P bedside debridement 01/11 History of hemorrhagic CVA Continue PT, OT, and ST Poor prognosis. Patient does not participate well with therapy Palliative care following Dysphagia Due to hemorrhagic stroke Status post PEG placement on 05/09/17, PEG tube out 01/18/2018, consult invasive radiology for PEG tube reinsertion, medically necessary. Continue tube feedings HTN Continue nifedipine 40 mg Q6H, Apresoline 50 mg Q6H, Metoprolol 100 mg BID, HCTZ 25 mg Daily HOLD FOR HYPOTENSION Vasotec IV PRN, Clonidine PRN Hyperglycemia Glucerna for tube feeds Follow blood sugars intermittently Xeroderma on bilateral feet Lac-Hydrin 12% Lotion continued Depression Continue Lexapro 10 mg via PEG daily Nutrition Tube feeds changed to Glucerna 1.5 , bolus feeding with Tyshawn POOR URINE OUTPUT WILL GIVE IV FLUIDS 3-17 DVT Prophylaxis Heparin (cleared by neurosurgery) SUBQ BID Discharge Planning Patient was homeless prior to admit Poor access for inpatient rehabilitation Family desires aggressive measures for therapy and placement Independent funding unavailable for placement Long-term prognosis is poor No significant capacity for regaining full functionality Palliative care following Very poor prognosis. Patient does not display any meaningful involvement with therapy. Difficult DC. Awaiting placement Harry Vargas DO Jan 21, 2018 14:46
[2018-01-21 16:00] VITALS: BP 124/67; PULSE 111; RESP 14; TEMP 98.4; O2SAT 98
--- NOTE | 2018-01-21 16:39 | RADRPT ---
EXAM DATE/TIME: 01/21/2018 16:13 [facility] COMPARISON: MRI BRAIN W & W/O CONTRAST, January 11, 2018, 8:45. CT BRAIN W/O CONTRAST, January 10, 2018, 10:47. INDICATIONS : Abnormal MRI brain. RADIATION DOSE: 51.04 CTDIvol (mGy) MEDICAL HISTORY : Non-responsive. SURGICAL HISTORY : Non-responsive. ENCOUNTER: Subsequent ACUITY: 1 day PAIN SCALE: Non-responsive LOCATION: Bilateral head TECHNIQUE: Multiple contiguous axial images were obtained of the head. Using automated exposure control and adj ustment of the mA and/or kV according to patient size, radiation dose was kept as low as reasonably a chievable to obtain optimal diagnostic quality images. DICOM format image data is available electro nically for review and comparison. FINDINGS: CEREBRUM: The ventricles are normal in size and configuration. There is decreased attenuation in the periventri cular white matter most consistent with microvascular ischemic demyelinative change. Examination also demonstrates an area of encephalomalacia in the left thalamus with surrounding increased density sug gesting a small area of hemorrhagic infarct. This was noted on the patient's previous MRI dated . This appears similar. POSTERIOR FOSSA: The cerebellum and brainstem are intact. The 4th ventricle is midline. The cerebellopontine angle i s unremarkable. EXTRACRANIAL: The visualized portion of the orbits is intact. SKULL: The calvaria is intact. No evidence of skull fracture. CONCLUSION: 1. Small area of encephalomalacia with some surrounding hemorrhage in the left basal ganglia most con sistent with an area of hemorrhagic infarct. This is stable compared to previous exams. 2. Cortical atrophy and microvascular ischemic demyelinative change. Timmy Dumas MD on January 21, 2018 at 16:35 Board Certified Radiologist. This report was verified electronically.
[2018-01-21 20:00] VITALS: BP 110/60; PULSE 115; RESP 18; TEMP 99.4; O2SAT 99
[2018-01-22] VITALS: BP 130/69; PULSE 99; RESP 18; TEMP 99; O2SAT 97
[2018-01-22] MEDS: metroNIDAZOLE 500 MG TAB PEG SCH ×3 (00:35→17:49)
[2018-01-22] MEDS: NIFEdipine 20 MG CAP PEG SCH ×4 (00:35→17:50)
[2018-01-22 04:00] VITALS: BP 137/71; PULSE 107; RESP 16; TEMP 100.6; O2SAT 99
[2018-01-22] MEDS: hydrALAZINE HCL 100 MG TAB PEG SCH ×3 (05:38→21:33)
[2018-01-22] MEDS: FREE WATER G-TUBE SCH ×4 (05:40→17:50)
[2018-01-22 08:00] VITALS: BP 136/82; PULSE 98; RESP 14; TEMP 98.6; O2SAT 97
[2018-01-22] MEDS: COLLAGENASE OINT 30 GM TUBE TOPICAL SCH (09:05)
[2018-01-22] MEDS: HEPARIN SODIUM - SQ 10,000 UNITS/ML VIAL SQ SCH ×2 (09:05→21:32)
[2018-01-22] MEDS: SODIUM HYPOCHLORITE 0.125% 500 ML BTL TOPICAL SCH (09:05)
[2018-01-22] MEDS: LACTIC ACID (AMMONIUM LACTATE) 12% LOTION 225 GM BTL TOPICAL SCH ×2 (09:05→21:33)
[2018-01-22] MEDS: HYDROCHLOROTHIAZIDE 25 MG TAB PEG SCH (09:06)
[2018-01-22] MEDS: METOPROLOL TARTRATE 25 MG TAB PEG SCH ×2 (09:07→21:32)
[2018-01-22] MEDS: LACTOBACILLUS ACIDOPHILUS TAB PEG SCH ×3 (09:07→17:49)
[2018-01-22] MEDS: ESCITALOPRAM OXALATE 10 MG TAB PEG SCH (09:07)
[2018-01-22] MEDS: FLUCONAZOLE 100 MG TAB PEG SCH (09:07)
[2018-01-22] MEDS: LANSOPRAZOLE SOLUTAB 30 MG TAB G-TUBE SCH (09:07)
[2018-01-22] MEDS: SODIUM CHLOR 0.9% 1000 ML INJ 1,000 ML IV SCH ×2 (09:09→21:34)
[2018-01-22 12:00] VITALS: BP 128/86; PULSE 98; RESP 14; TEMP 98.4; O2SAT 97
[2018-01-22] MEDS: LEVOFLOXACIN 750 MG TAB PEG SCH (12:01)
--- NOTE | 2018-01-22 17:15 | HHI.HCPN ---
Reason for visit a. To assist with evaluation and management of symptoms including: dysphagia , aphasia, hemiparesis, pain. b. To assist medical decision maker(s) with: better understanding of current medical conditions; weighing benefits/burdens of medical treatment options; making medical treatment decisions. Subjective/Interval History Patient seen to follow-up on goals of care and symptom management. 62-year-old female status post hemorrhagic CVA, with long hospitalization and sacral wound status post surgical debridement 10/17/17. She remains aphasic with right neglect, right-sided hemiparesis. She does turn her head to voice with effort. She receives bolus tube feedings of 240 mL of Glucerna 5 times daily. There has been a weight increase since 01/11/18 from 51 kg to 58.5 kg today. She has a sacral pressure injury that is unstageable measuring 4.2 cm x 1.5 cm x 2.4 cm with undermining from 7 to 4:00 with max depth at 12:00 measuring 3.5 cm. Wound base is approximately 50% dull pink tissue and approximately 10% yellow slough approximately 30 % fascia and approximately 10% bone. Sharp debridement was completed and wound cleansed with normal saline on 01/11/2018. Wound was dressed with Santyl 2 mm thick the wound base with Maxorb to lightly packed and wound covered with border gauze. Abdomen/pelvis CT done 01/09/2018 shows sacral decubitus wound/ulcer extending to the sacrum. Prior MRI demonstrating abnormal sacrum in the inferior aspect of the sacrum and coccyx with presacral edema, highly suspicious for osteomyelitis. Urinalysis done 01/17/2018 shows Yenifer albicans and Staphylococcus epidermidis. She is receiving Levaquin for that. Sensitivity returned 01/22 shows resistance to ciprofloxacin. On 01/[address] to follow-up on brain MRI done 01/11 which showed small area of encephalomalacia with some surrounding hemorrhage in the left basal ganglia most consistent with an area of hemorrhagic infarct, stable compared to previous exams. Cortical atrophy and microvascular ischemic demyelinating change. Spoke with Gerardo Aldridge regarding patient discharge plans and he advises that the patient's brother, King Elsy, remains difficult to reach. shelter facilities have been contacted to evaluate the patient and those evaluations are pending. There are 3 family members have been able to be located Via [email or web address] and social media. She has 2 children, the daughter has declined involvement, one son who is willing to participate, but not able to be the payee to transition his mother's affairs to the alf due to a previous fraud charge. Her brother, who has agreed to be the payee, is difficult to reach by phone and frequently does not return calls, making it difficult to find a facility that will accept. . Advance Directives Living Will: Never completed Health Care Surrogate: Never completed Durable Power of Division Roadmaster: Never completed Objective Vital Signs Date Time Temp Pulse Resp B/P (MAP) Pulse Ox O2 Delivery O2 Flow Rate FiO2 01/22/18 12:00 98.4 98 14 128/86 (100) 97 01/22/18 08:00 98.6 98 14 136/82 (100) 97 01/22/18 04:00 100.6 107 16 137/71 (93) 99 01/22/18 00:00 99.0 99 18 130/69 (89) 97 01/21/18 20:00 99.4 115 18 110/60 (77) 99 Intake & Output 01/22/18 01/22/18 07:00 19:00 Intake Total 1540 ml Output Total 600 ml Balance 940 ml IV Total 1000 ml Tube Feeding 240 ml Other 300 ml Output Urine Total 600 ml Physical Exam CONSTITUTIONAL/GENERAL: This is an adequately nourished patient, in no apparent distress. SKIN: No jaundice, rashes, or lesions. Sacral wound s/p debridement, wound VAC intact. Skin temperature appropriate. Not diaphoretic. HEAD: Atraumatic. Normocephalic. EYES: Pupils equal and round and reactive. No scleral icterus. No injection or drainage. NECK: Trachea midline. Supple, nontender. CARDIOVASCULAR: Regular rate and rhythm without murmurs, gallops, or rubs. No JVD. Peripheral pulses symmetric. RESPIRATORY/CHEST: Symmetric, unlabored respirations. Clear to auscultation. Breath sounds equal bilaterally. No wheezes, rales, or rhonchi. GASTROINTESTINAL: Abdomen soft, non-tender, nondistended. No guarding. Bowel sounds present. PEG to LUQ currently clamped. GENITOURINARY: Without palpable bladder distension. Cruz catheter in place. MUSCULOSKELETAL: Bilateral foot drop, no edema, has podus boots in place. NEUROLOGICAL: Arouses to verbal stimuli. Right sided hemiparesis, flaccid. Right neglect. Follows simple command with left upper extremity only. Attempts to mouth some words PSYCHIATRIC: No obvious anxiety/depression noted. . Diagnostic Tests Microbiology Microbiology Date/Time Source Procedure Growth Status 01/01/18 20:28 Blood Peripheral Aerobic Blood Culture - Final NO GROWTH IN 5 DAYS Complete 01/01/18 20:28 Blood Peripheral Anaerobic Blood Culture - Final NO GROWTH IN 5 DAYS Complete 10/14/17 13:30 Nasal Aspirate Influenza Types A,B Antigen ([place]) - Final NEGATIVE FOR FLU A AND B ANTIGEN.... Complete 01/17/18 18:00 Urine Catheterized Urine Urine Culture - Final Yenifer Albicans Staphylococcus Epidermidis Complete 12/25/17 16:30 Wound Other Gram Stain - Final Complete 12/25/17 16:30 Wound Culture - Final Enterobacter Aerogenes Escherichia Coli Complete . Imaging Last Impressions Head CT 01/20/18 0000 Signed Impressions: Service Date/Time: Sunday, January 21, 2018 16:13 - CONCLUSION: 1. Small area of encephalomalacia with some surrounding hemorrhage in the left basal ganglia most consistent with an area of hemorrhagic infarct. This is stable compared to previous exams. 2. Cortical atrophy and microvascular ischemic demyelinative change. Timmy Dumas MD Chest X-Ray 01/19/18 0000 Signed Impressions: Service Date/Time: Friday, January 19, 2018 17:12 - CONCLUSION: Trace left base atelectasis. Hu Henderson MD Gastrostomy Tube Placement 01/18/18 0000 Signed Impressions: Service Date/Time: January 16:41 - CONCLUSION: Uncomplicated gastrostomy tube replacement through an existing tract. Timmy Dumas MD Brain MRI 01/11/18 0000 Signed Impressions: Service Date/Time: January 08:45 - CONCLUSION: 1. Focal area of restricted diffusion in the left thalmus characteristic of an acute to subacute infarct. 2. GRE images demonstrate subacute hemorrhage associated with the infarct in the left thalamus. 3. GRE images also demonstrate punctate areas of microhemorrhage noted in the deep right mid parietal lobe, right occipital lobe and bilateral basal ganglia regions, left greater than right. 4. Diffuse bilateral cortical atrophy and chronic white matter changes. Luciano Morales MD Abdomen/Pelvis CT 01/09/18 0000 Signed Impressions: Service Date/Time: Tuesday, January 09, 2018 18:48 - CONCLUSION: 1. There is a sacral decubitus wound/ulcer which extends to the sacrum. Prior MRI demonstrated abnormal sacrum in the inferior aspect of the sacrum and coccyx. There is also presacral edema. These findings are highly suspicious for osteomyelitis. 2. Nonacute findings include 3 mm nonobstructing right renal stone and multi-fibroid uterus. Hu Cuenca MD Sacrum/Coccyx MRI 01/06/18 0000 Signed Impressions: Service Date/Time: Saturday, January 06, 2018 08:30 - CONCLUSION: Large decubitus ulcer posteriorly with not only bony edema and marrow replacement concerning for osteomyelitis but it extends to the presacral fat is well where there is marked enhancement and fluid on the T2-weighted sequences. The coccygeal involvement is at least 3.5 cm in length. Eliud Du MD Abdomen X-Ray 12/13/17 0000 Signed Impressions: Service Date/Time: Wednesday, December 13, 2017 14:17 - CONCLUSION: PEG tube in stomach.. Harry Dumas MD FACR Upper Extremity Ultrasound 11/06/17 0000 Signed Impressions: Service Date/Time: Monday, November 06, 2017 14:17 - CONCLUSION: Normal examination. K. Byron Perez MD Pelvis CT 10/13/17 0000 Signed Impressions: Service Date/Time: Friday, October 13, 2017 12:02 - CONCLUSION: 1. Decubitus ulcer with small abscess in the right posterior perineal region measuring 3.1 x 4.6 cm. There is also a small abscess posterior and to the left of the rectum measuring 3.2 x 2.3 cm. Jann Weber MD Neck CTA 04/10/17 0000 Signed Impressions: Service Date/Time: Monday, April 10, 2017 22:28 - CONCLUSION: The internal carotid arteries are normal bilaterally. No significant atherosclerotic disease is noted. Eliud Du MD Head CTA 04/10/17 0000 Signed Impressions: Service Date/Time: Monday, April 10, 2017 22:50 - CONCLUSION: Mild dilatation of the basilar tip without discrete aneurysm. Some narrowing of the left middle cerebral branch after the bifurcation. Prominent left thalamic hemorrhage. Eliud Du MD . Procedures 05/08/17: PEG placement . Assessment and Plan Disease Oriented Problem List: (1) Intracranial hemorrhage Comment: left thalamic hemorrhage, due to hypertensive emergency. (2) Malignant hypertension Comment: complicated by non compliance with medication due to delusion and paranoia (3) Unspecified psychosis (4) Delusional disorder (5) Hemiparesis Comment: right (6) Psychosis Symptom Scale: (1) Dysphagia 0-10 Scale: Unable to quantify (2) Aphasia 0-10 Scale: Unable to quantify (3) Hemiparesis 0-10 Scale: Unable to quantify Comment: Recent CVA . Pertinent Non-Medical Issues Psychosocial:hx of delusions, paranoia, bruno act, non-compliance, now with thalamic stroke. Pt also is pending SSI. Spiritual:roman catholic Legal:If not capacitated, surviving children, pt's daughter and son would be health care proxy. Son appears to be difficult to reach, per executive secretary social welfare. Ethical issues impacting care:none at this time. Important Contacts Aleena Wallace [phone]. Number is currently disconnected. Henri Birmingham [phone], . Prognosis Patient with psychiatric hx of delusions, paranoia, has extensive hospital stay of 160 plus days after a left thalamic stroke. Pt is peg tube dependent, with hemiperisis; but has been relatively stable since April. She is at risk of recurrent hospitalization and setbacks. However given no recent pneumonia episodes, or major complications, I feel given pt continue tube feedings, prognosis is > 6 months. Albumin is 3.2 since last check on 11/02/2017. . Code Status: Full Code Plan PLAN: Legal decision maker: She has 2 children who serve as joint proxy. Goals: Aggressive. CODE STATUS: FULL CODE SYMPTOMS: * Dysphasia: Repeatedly failed swallow evaluation, ST signed off. PEG tube placed, tolerating bolus feedings of 240 mL 5 times a day. Admission weight 62.9 KGs. Weight currently 58.5 KG is as of 01/22/2018 no recommendations * Aphasia: Secondary to left thalamus stroke. Able to nod her head intermittently to questions, but not consistently. * Right hemiparesis: Continues physical therapy. * Pain: Likely source of pain is bedbound status, invasive lines, large tunnelled sacral decubitus, wound VAC in place. Does not appear to be in pain during visit. Patient remains a placement issue. Now approved for Medicaid. The difficulty remains with family consistently responding to requests for information. Facilities who have agreed to evaluate the patient are unable to contact the brother or have calls returned. The brother has been named the payee responsible for signing benefits to the alf once placed. Several other facilities have been queried by case management and evaluations are pending. Palliative care will continue to follow the patient during hospital course as condition evolves, to assist patient/decision-maker with understanding of their medical conditions, weighing benefits/burdens of treatment options, for clarification of goals of treatment. Additionally will assist with any symptoms of palliative concern. . Attestation To help prompt me to consider important information that might be impacting today's encounter and assessment, information from prior notes written by myself or my colleagues may have been "brought forward" into today's note. My signature on this note, however, is an attestation that I personally performed the exam, history, and/or decision-making noted today, and, unless otherwise indicated, the interactions with patient, family, and staff as well as the review of records all occurred today. I also attest that the listed assessment and stated plan reflect my best clinical judgment today based on the combination of historical information, prior notes, and today's exam/ interactions. When time spent is documented, it refers only to time spent today by the signer, or if indicated, combined time spent today by collaborating physician/nurse practitioner. . Suzi Aldridge Jan 22, 2018 5:15 pm
--- NOTE | 2018-01-22 18:48 | HHI.PR ---
Subjective Remarks DW RN. No acute changes. Fever X1 earlier this morning. Objective Vitals Vital Signs Date Time Temp Pulse Resp B/P (MAP) Pulse Ox O2 Delivery O2 Flow Rate FiO2 01/22/18 12:00 98.4 98 14 128/86 (100) 97 01/22/18 08:00 98.6 98 14 136/82 (100) 97 01/22/18 04:00 100.6 107 16 137/71 (93) 99 01/22/18 00:00 99.0 99 18 130/69 (89) 97 01/21/18 20:00 99.4 115 18 110/60 (77) 99 I/O 01/21/18 01/21/18 01/21/18 01/22/18 01/22/18 01/22/18 07:00 15:00 23:00 07:00 15:00 23:00 Intake Total 750 ml 2990 ml 150 ml Output Total 400 ml 1150 ml 200 ml Balance 350 ml 1840 ml -50 ml Intake Oral 0 ml IV Total 1000 ml Tube Feeding 150 ml 1540 ml Other 600 ml 450 ml 150 ml Output Urine Total 400 ml 1150 ml 200 ml # Bowel Movements 2 1 Objective Remarks GENERAL: Patient lying in bed, appears comfortable. EYES: No scleral icterus. No injection or drainage. NECK: Supple, trachea midline. No JVD. CARDIOVASCULAR: Regular rate and rhythm without murmurs, gallops, or rubs. RESPIRATORY: Breath sounds equal bilaterally. No accessory muscle use. GASTROINTESTINAL: Abdomen soft, non-tender, nondistended. PEG tube in place. Cruz catheter with yellow urine. MUSCULOSKELETAL: No cyanosis, or edema. NEURO: Follow some commands. Aphasic. Procedures Peg Tube placed 05/08/17 (Dr. De Los Santos) A/P Problem List: (1) Major neurocognitive disorder ICD Code: F03.90 - Unspecified dementia without behavioral disturbance (2) Hemiparesis ICD Code: G81.90 - Hemiplegia, unspecified affecting unspecified side Status: Acute (3) Intracranial hemorrhage ICD Code: I62.9 - Nontraumatic intracranial hemorrhage, unspecified Status: Chronic (4) Aphasia ICD Code: R47.01 - Aphasia Assessment and Plan 62-year-old female with history of hemorrhagic stroke and resulting neurocognitive decline: Status post hemorrhagic CVA, new acute and subacute stroke with chronic right hemiplegia and aphasia. Questionable new facial droop on 01/10; Brain MRI 01/11 showed acute to subacute left thalamic infarct with mild hemorrhagic component in patient with previous history of relatively large left thalamic CVA Neuro and neurosurgery consulted; no surgical intervention needed. Agreed to pharmacologic prophylaxis Facial droop improved Repeat CT on 01/20 stable. UTI Ctx growing Enterobacter aerogenes. Patient received Levaquin x 14 days (01/03-) Repeat urinalysis showed Yenifer anticoagulates negative staph. Started on Diflucan, still on Levaquin (for sacral wound) replace Cruz catheter after Diflucan started Stage IV sacral pressure ulcer MRI showing bony edema and marrow replacement concerning for osteomyelitis; ID following, continue Levaquin and Flagyl until February Wound care following, S/P bedside debridement 01/11 History of hemorrhagic CVA Continue PT, OT, and ST Poor prognosis. Patient does not participate well with therapy Palliative care following Dysphagia Due to hemorrhagic stroke Status post PEG placement on 05/09/17, PEG tube out 01/18/2018, consult invasive radiology for PEG tube reinsertion, medically necessary. Continue tube feedings HTN Continue nifedipine 40 mg Q6H, Apresoline 50 mg Q6H, Metoprolol 100 mg BID, HCTZ 25 mg Daily HOLD FOR HYPOTENSION Vasotec IV PRN, Clonidine PRN Hyperglycemia Glucerna for tube feeds Follow blood sugars intermittently Xeroderma on bilateral feet Lac-Hydrin 12% Lotion continued Depression Continue Lexapro 10 mg via PEG daily Nutrition Tube feeds changed to Glucerna 1.5 , bolus feeding with Tyshawn DVT Prophylaxis Heparin (cleared by neurosurgery) SUBQ BID Discharge Planning Patient was homeless prior to admit Family desires aggressive measures for therapy and placement Independent funding unavailable for placement Long-term prognosis is poor No significant capacity for regaining full functionality Palliative care following Very poor prognosis. Patient does not display any meaningful involvement with therapy. Difficult DC. Awaiting placement Rena Cummings MD Jan 22, 2018 18:48
[2018-01-22 18:57] VITALS: BP 136/82; PULSE 88; RESP 14; TEMP 97.6
[2018-01-22 20:00] VITALS: BP 140/65; PULSE 111; RESP 16; TEMP 99.6; O2SAT 98
[2018-01-23] VITALS (8 sets, daily range): BP systolic 129–160; BP diastolic 66–102; PULSE 69–90; RESP 12–19; TEMP 97.4–98.7; O2SAT 98–99
[2018-01-23] MEDS: FREE WATER G-TUBE SCH ×4 (00:16→18:07)
[2018-01-23] MEDS: NIFEdipine 20 MG CAP PEG SCH ×4 (00:16→18:07)
[2018-01-23] MEDS: metroNIDAZOLE 500 MG TAB PEG SCH ×3 (00:16→18:07)
[2018-01-23] MEDS: hydrALAZINE HCL 100 MG TAB PEG SCH ×3 (05:17→20:39)
[2018-01-23] MEDS: LANSOPRAZOLE SOLUTAB 30 MG TAB G-TUBE SCH (08:54)
[2018-01-23] MEDS: HEPARIN SODIUM - SQ 10,000 UNITS/ML VIAL SQ SCH ×2 (08:54→20:40)
[2018-01-23] MEDS: LACTOBACILLUS ACIDOPHILUS TAB PEG SCH ×3 (08:54→18:07)
[2018-01-23] MEDS: ESCITALOPRAM OXALATE 10 MG TAB PEG SCH (08:54)
[2018-01-23] MEDS: FLUCONAZOLE 100 MG TAB PEG SCH (08:54)
[2018-01-23] MEDS: METOPROLOL TARTRATE 25 MG TAB PEG SCH ×2 (08:54→20:39)
[2018-01-23] MEDS: SODIUM HYPOCHLORITE 0.125% 500 ML BTL TOPICAL SCH (08:55)
[2018-01-23] MEDS: COLLAGENASE OINT 30 GM TUBE TOPICAL SCH (08:55)
[2018-01-23] MEDS: LACTIC ACID (AMMONIUM LACTATE) 12% LOTION 225 GM BTL TOPICAL SCH ×2 (08:55→20:40)
[2018-01-23] MEDS: SODIUM CHLOR 0.9% 1000 ML INJ 1,000 ML IV SCH ×2 (09:06→21:15)
[2018-01-23] MEDS: HYDROCHLOROTHIAZIDE 25 MG TAB PEG SCH (09:06)
[2018-01-23] MEDS: LEVOFLOXACIN 750 MG TAB PEG SCH (12:32)
--- NOTE | 2018-01-23 14:27 | HHI.PR ---
Subjective Remarks Patient seen and examined today laying in bed. Awake and alert. Does not verbalize or follows commands. As per nursing, no acute issues overnight. Objective Vitals Vital Signs Date Time Temp Pulse Resp B/P (MAP) Pulse Ox O2 Delivery O2 Flow Rate FiO2 01/23/18 13:04 98.7 84 16 132/86 (101) 99 01/23/18 08:00 97.4 69 16 129/70 (89) 98 01/23/18 04:00 98.6 75 16 140/84 (102) 98 01/23/18 00:00 98.6 90 16 145/83 (103) 98 01/22/18 20:00 99.6 111 16 140/65 (90) 98 01/22/18 18:57 97.6 88 14 136/82 (100) I/O 01/22/18 01/22/18 01/22/18 01/23/18 01/23/18 01/23/18 07:00 15:00 23:00 07:00 15:00 23:00 Intake Total 150 ml 1600 ml 540 ml Output Total 200 ml 400 ml 1900 ml 100 ml Balance -50 ml 1200 ml -1360 ml -100 ml Tube Feeding 1300 ml 240 ml Other 150 ml 300 ml 300 ml Output Urine Total 200 ml 400 ml 1900 ml 100 ml # Bowel Movements 2 1 Imaging Last Impressions Head CT 01/20/18 0000 Signed Impressions: Service Date/Time: Sunday, January 21, 2018 16:13 - CONCLUSION: 1. Small area of encephalomalacia with some surrounding hemorrhage in the left basal ganglia most consistent with an area of hemorrhagic infarct. This is stable compared to previous exams. 2. Cortical atrophy and microvascular ischemic demyelinative change. Timmy Dumas MD Chest X-Ray 01/19/18 0000 Signed Impressions: Service Date/Time: Friday, January 19, 2018 17:12 - CONCLUSION: Trace left base atelectasis. Hu Henderson MD Gastrostomy Tube Placement 01/18/18 0000 Signed Impressions: Service Date/Time: January 16:41 - CONCLUSION: Uncomplicated gastrostomy tube replacement through an existing tract. Timmy Dumas MD Brain MRI 01/11/18 0000 Signed Impressions: Service Date/Time: January 08:45 - CONCLUSION: 1. Focal area of restricted diffusion in the left thalmus characteristic of an acute to subacute infarct. 2. GRE images demonstrate subacute hemorrhage associated with the infarct in the left thalamus. 3. GRE images also demonstrate punctate areas of microhemorrhage noted in the deep right mid parietal lobe, right occipital lobe and bilateral basal ganglia regions, left greater than right. 4. Diffuse bilateral cortical atrophy and chronic white matter changes. Luciano Morales MD Abdomen/Pelvis CT 01/09/18 0000 Signed Impressions: Service Date/Time: Tuesday, January 09, 2018 18:48 - CONCLUSION: 1. There is a sacral decubitus wound/ulcer which extends to the sacrum. Prior MRI demonstrated abnormal sacrum in the inferior aspect of the sacrum and coccyx. There is also presacral edema. These findings are highly suspicious for osteomyelitis. 2. Nonacute findings include 3 mm nonobstructing right renal stone and multi-fibroid uterus. Hu Cuenca MD Sacrum/Coccyx MRI 01/06/18 0000 Signed Impressions: Service Date/Time: Saturday, January 06, 2018 08:30 - CONCLUSION: Large decubitus ulcer posteriorly with not only bony edema and marrow replacement concerning for osteomyelitis but it extends to the presacral fat is well where there is marked enhancement and fluid on the T2-weighted sequences. The coccygeal involvement is at least 3.5 cm in length. Eliud Du MD Abdomen X-Ray 12/13/17 0000 Signed Impressions: Service Date/Time: Wednesday, December 13, 2017 14:17 - CONCLUSION: PEG tube in stomach.. Harry Dumas MD FACR Upper Extremity Ultrasound 11/06/17 0000 Signed Impressions: Service Date/Time: Monday, November 06, 2017 14:17 - CONCLUSION: Normal examination. K. Byron Perez MD Pelvis CT 10/13/17 0000 Signed Impressions: Service Date/Time: Friday, October 13, 2017 12:02 - CONCLUSION: 1. Decubitus ulcer with small abscess in the right posterior perineal region measuring 3.1 x 4.6 cm. There is also a small abscess posterior and to the left of the rectum measuring 3.2 x 2.3 cm. Jann Weber MD Neck CTA 04/10/17 0000 Signed Impressions: Service Date/Time: Monday, April 10, 2017 22:28 - CONCLUSION: The internal carotid arteries are normal bilaterally. No significant atherosclerotic disease is noted. Eliud Du MD Head CTA 04/10/17 0000 Signed Impressions: Service Date/Time: Monday, April 10, 2017 22:50 - CONCLUSION: Mild dilatation of the basilar tip without discrete aneurysm. Some narrowing of the left middle cerebral branch after the bifurcation. Prominent left thalamic hemorrhage. Eliud Du MD Objective Remarks GENERAL: This is a patient in no apparent distress. SKIN: Warm and dry. HEENT: Normocephalic. Pupils equal round and reactive. Nose without bleeding. Airway patent. NECK: Trachea midline. CARDIOVASCULAR: Regular rate and rhythm without murmurs, gallops, or rubs. RESPIRATORY: Diminished bases. No wheezes, rales, or rhonchi. GASTROINTESTINAL: Abdomen soft, non-tender, nondistended. Bowel Sounds normoactive x4. PEG in place : Cruz catheter in place MUSCULOSKELETAL: Extremities without clubbing, cyanosis, or edema. Bilateral lower extremity footdrop. Contractures NEUROLOGICAL: Awake and alert. Nonverbal. Procedures Peg Tube placed 05/08/17 (Dr. De Los Santos) A/P Problem List: (1) Major neurocognitive disorder ICD Code: F03.90 - Unspecified dementia without behavioral disturbance (2) Hemiparesis ICD Code: G81.90 - Hemiplegia, unspecified affecting unspecified side Status: Acute (3) Intracranial hemorrhage ICD Code: I62.9 - Nontraumatic intracranial hemorrhage, unspecified Status: Chronic (4) Aphasia ICD Code: R47.01 - Aphasia Assessment and Plan 62-year-old female with history of hemorrhagic stroke and resulting neurocognitive decline: Status post hemorrhagic CVA, new acute and subacute stroke with chronic right hemiplegia and aphasia. Questionable new facial droop on 01/10; Brain MRI 01/11 showed acute to subacute left thalamic infarct with mild hemorrhagic component in patient with previous history of relatively large left thalamic CVA Neuro and neurosurgery consulted; no surgical intervention needed. Agreed to pharmacologic prophylaxis Facial droop improved Repeat CT on 01/20 stable. PT/OT poor participation UTI Ctx growing Enterobacter aerogenes. Patient received Levaquin x 14 days (01/03 -01/16) Repeat urinalysis showed Yenifer anticoagulates negative staph. Started on Diflucan, still on Levaquin (for sacral wound) replace Cruz catheter after Diflucan started Stage IV sacral pressure ulcer MRI showing bony edema and marrow replacement concerning for osteomyelitis; ID following, continue Levaquin and Flagyl until February Wound care following, S/P bedside debridement 01/11 Repositioning assistance, off pressure relief History of hemorrhagic CVA Continue PT, OT, and ST Poor prognosis. Patient does not participate well with therapy Palliative care following Dysphagia Due to hemorrhagic stroke Status post PEG placement on 05/09/17, PEG tube out 01/18/2018, consult invasive radiology for PEG tube reinsertion, medically necessary. Continue tube feedings HTN Continue nifedipine 40 mg Q6H, Apresoline 50 mg Q6H, Metoprolol 100 mg BID, HCTZ 25 mg Daily HOLD FOR HYPOTENSION Vasotec IV PRN, Clonidine PRN Hyperglycemia Glucerna for tube feeds Follow blood sugars intermittently Xeroderma on bilateral feet Lac-Hydrin 12% Lotion continued Depression Continue Lexapro 10 mg via PEG daily DVT Prophylaxis Heparin (cleared by neurosurgery) Discharge Planning Patient was homeless prior to admit. Family desires aggressive measures for therapy and placement. Independent funding unavailable for placement. Long- term prognosis is poor. Pending placement Jarred Malin Jan 23, 2018 14:26
[2018-01-23] MEDS: hydrALAZINE HCL 25 MG TAB PEG PRN (22:03)
[2018-01-24] VITALS (8 sets, daily range): BP systolic 108–166; BP diastolic 58–110; PULSE 50–115; RESP 16–20; TEMP 98.2–99; O2SAT 92–99
[2018-01-24] MEDS: metroNIDAZOLE 500 MG TAB PEG SCH ×3 (00:22→16:40)
[2018-01-24] MEDS: FREE WATER G-TUBE SCH ×5 (00:22→23:07)
[2018-01-24] MEDS: NIFEdipine 20 MG CAP PEG SCH ×5 (00:22→17:14)
[2018-01-24] MEDS: hydrALAZINE HCL 100 MG TAB PEG SCH ×3 (04:37→20:45)
[2018-01-24] MEDS: LACTOBACILLUS ACIDOPHILUS TAB PEG SCH ×3 (09:19→16:40)
[2018-01-24] MEDS: FLUCONAZOLE 100 MG TAB PEG SCH (09:20)
[2018-01-24] MEDS: METOPROLOL TARTRATE 25 MG TAB PEG SCH ×2 (09:20→20:45)
[2018-01-24] MEDS: HEPARIN SODIUM - SQ 10,000 UNITS/ML VIAL SQ SCH ×2 (09:20→20:45)
[2018-01-24] MEDS: LANSOPRAZOLE SOLUTAB 30 MG TAB G-TUBE SCH (09:20)
[2018-01-24] MEDS: ESCITALOPRAM OXALATE 10 MG TAB PEG SCH (09:20)
[2018-01-24] MEDS: HYDROCHLOROTHIAZIDE 25 MG TAB PEG SCH (09:20)
[2018-01-24] MEDS: COLLAGENASE OINT 30 GM TUBE TOPICAL SCH (09:21)
[2018-01-24] MEDS: LACTIC ACID (AMMONIUM LACTATE) 12% LOTION 225 GM BTL TOPICAL SCH ×2 (09:21→20:45)
[2018-01-24] MEDS: oxyCODONE/ACETAMINOPHEN 5 MG/325 MG TAB PEG PRN (09:21)
[2018-01-24] MEDS: SODIUM HYPOCHLORITE 0.125% 500 ML BTL TOPICAL SCH (09:21)
[2018-01-24] MEDS: SODIUM CHLOR 0.9% 1000 ML INJ 1,000 ML IV SCH ×2 (09:22→20:15)
[2018-01-24] MEDS: LEVOFLOXACIN 750 MG TAB PEG SCH (11:46)
--- NOTE | 2018-01-24 23:09 | HHI.PR ---
Subjective Remarks Patient seen today around 2 PM. No acute changes per nursing. Continues nonverbal. Patient again appears to deny pain. Objective Vital Signs Date Time Temp Pulse Resp B/P (MAP) Pulse Ox O2 Delivery O2 Flow Rate FiO2 01/24/18 18:30 115 16 156/98 (117) 92 01/24/18 16:00 99.0 72 18 160/110 (127) 94 01/24/18 12:00 99.0 50 18 108/58 (75) 93 01/24/18 10:20 18 01/24/18 08:00 98.9 88 20 116/80 (92) 95 01/24/18 06:22 81 166/67 (100) 01/24/18 04:20 98.5 76 18 160/84 (109) 96 01/24/18 00:20 98.2 78 19 136/98 (111) 96 I/O 01/24/18 01/24/18 01/24/18 01/25/18 01/25/18 01/25/18 07:00 15:00 23:00 07:00 15:00 23:00 Intake Total 240 ml 1020 ml 300 ml Output Total 1900 ml 580.0 ml 2480 ml Balance -1660 ml 440.0 ml -2180 ml IV Total 1020 ml Tube Feeding 240 ml 200 ml Other 100 ml Output Urine Total 1900 ml 1900 ml Gastric Drainage Total 580 ml Tube Feeding Residual Discard 580.0 ml # Bowel Movements 1 3 Procedures No procedures performed Objective Remarks GENERAL: Patient lying in bed. Appears comfortable. Appears to answer no againin regards to if she has pain. No other meaningful communication. SKIN: Warm and dry. HEAD: Normocephalic. EYES: No scleral icterus. No injection or drainage. NECK: Supple, trachea midline. No JVD. CARDIOVASCULAR: Regular rate and rhythm without murmurs, gallops, or rubs. RESPIRATORY: Breath sounds equal bilaterally. No accessory muscle use. GASTROINTESTINAL: Abdomen soft, non-tender, nondistended. PEG tube in place without leakage. MUSCULOSKELETAL: No cyanosis, or edema. BACK: Nontender without obvious deformity. No CVA tenderness. A/P Assessment and Plan 01/24. Residual from PEG tube 550 mL. Likely multifactorial secondary to pain medication which was started recently, as well as calcium channel [place]. Patient has never complained of pain as far as I know. Denies any pain today. Obviously she has wounds which appear painful but no objective evidence of pain. We'll discontinue payments due to likely exacerbating bowel transit issues. 62-year-old female with history of hemorrhagic stroke and resulting neurocognitive decline: //Status post hemorrhagic CVA, new acute and subacute stroke with chronic right hemiplegia and aphasia. Questionable new facial droop on 01/10; Brain MRI 01/11 showed acute to subacute left thalamic infarct with mild hemorrhagic component in patient with previous history of relatively large left thalamic CVA Neuro and neurosurgery consulted; no surgical intervention needed. Agreed to pharmacologic prophylaxis Facial droop improved Repeat CT on 01/20 stable. PT/OT poor participation //UTI Ctx growing Enterobacter aerogenes. Patient received Levaquin x 14 days (01/03 -01/16) Repeat urinalysis showed Yenifer anticoagulates negative staph. Started on Diflucan, still on Levaquin (for sacral wound) replace Cruz catheter after Diflucan started //Stage IV sacral pressure ulcer MRI showing bony edema and marrow replacement concerning for osteomyelitis; ID following, continue Levaquin and Flagyl until February Wound care following, S/P bedside debridement 01/11 Repositioning assistance, off pressure relief Continue management as per infectious disease //History of hemorrhagic CVA Continue PT, OT, and ST Poor prognosis. Patient does not participate well with therapy Palliative care following //Dysphagia Due to hemorrhagic stroke Status post PEG placement on 05/09/17, PEG tube out 01/18/2018, consult invasive radiology for PEG tube reinsertion, medically necessary. Continue tube feedings //HTN Continue nifedipine 40 mg Q6H, Apresoline 50 mg Q6H, Metoprolol 100 mg BID, HCTZ 25 mg Daily HOLD FOR HYPOTENSION Vasotec IV PRN, Clonidine PRN //Hyperglycemia Glucerna for tube feeds Follow blood sugars intermittently //Xeroderma on bilateral feet Lac-Hydrin 12% Lotion continued //Depression Continue Lexapro 10 mg via PEG daily DVT Prophylaxis Heparin (cleared by neurosurgery) Discharge Planning Very poor prognosis. Patient does not display any meaningful involvement with therapy. Difficult DC. Awaiting placement Kevyn Cheema MD Jan 24, 2018 23:09
[2018-01-25] MEDS: metroNIDAZOLE 500 MG TAB PEG SCH ×3 (00:55→17:15)
[2018-01-25 04:00] VITALS: BP 152/90; PULSE 78; RESP 20; O2SAT 99
[2018-01-25] MEDS: hydrALAZINE HCL 100 MG TAB PEG SCH ×3 (05:39→21:58)
[2018-01-25] MEDS: FREE WATER G-TUBE SCH ×3 (05:39→17:16)
[2018-01-25] MEDS: NIFEdipine 20 MG CAP PEG SCH ×3 (05:39→21:58)
[2018-01-25 08:00] VITALS: BP 137/82; PULSE 90; RESP 14; TEMP 98.2; O2SAT 98
[2018-01-25] MEDS: FLUCONAZOLE 100 MG TAB PEG SCH (09:16)
[2018-01-25] MEDS: SODIUM HYPOCHLORITE 0.125% 500 ML BTL TOPICAL SCH (09:16)
[2018-01-25] MEDS: LACTOBACILLUS ACIDOPHILUS TAB PEG SCH ×3 (09:16→17:15)
[2018-01-25] MEDS: METOPROLOL TARTRATE 25 MG TAB PEG SCH ×2 (09:16→21:58)
[2018-01-25] MEDS: LACTIC ACID (AMMONIUM LACTATE) 12% LOTION 225 GM BTL TOPICAL SCH ×2 (09:16→21:00)
[2018-01-25] MEDS: COLLAGENASE OINT 30 GM TUBE TOPICAL SCH (09:16)
[2018-01-25] MEDS: ESCITALOPRAM OXALATE 10 MG TAB PEG SCH (09:16)
[2018-01-25] MEDS: HYDROCHLOROTHIAZIDE 25 MG TAB PEG SCH (09:16)
[2018-01-25] MEDS: LANSOPRAZOLE SOLUTAB 30 MG TAB G-TUBE SCH (09:16)
[2018-01-25] MEDS: HEPARIN SODIUM - SQ 10,000 UNITS/ML VIAL SQ SCH ×2 (09:17→21:58)
[2018-01-25 09:24] LABS: AUTOMATED NEUTROPHIL # 2.1 TH/MM3 (1.8-7.7); BASOPHIL % 0.6 % (0.0-2.0); EOSINOPHIL # 0.1 TH/MM3 (0-0.4); HEMATOCRIT 37.8 % (35.0-46.0); HEMOGLOBIN 12.3 GM/DL (11.6-15.3); LYMPH % 23.3 % (9.0-44.0); LYMPHOCYTE # 0.8 TH/MM3 (1.0-4.8); MEAN CELL VOLUME 82.7 FL (80.0-100.0); MEAN CORPUSCULAR HEMOGLOBIN 26.9 PG (27.0-34.0); MEAN CORPUSCULAR HGB CONC 32.6 % (32.0-36.0); MEAN PLATELET VOLUME 9.1 FL (7.0-11.0); MONO % 14.2 % (0.0-8.0); MONOCYTE # 0.5 TH/MM3 (0-0.9); NEUT % 58.9 % (16.0-70.0); PLATELET COUNT 279 TH/MM3 (150-450); RED BLOOD COUNT 4.57 MIL/MM3 (4.00-5.30); RED CELL DISTRIBUTION WIDTH 18.4 % (11.6-17.2); WHITE BLOOD COUNT 3.6 TH/MM3 (4.0-11.0)
[2018-01-25 09:46] LABS: ALBUMIN 3.4 GM/DL (3.4-5.0); BICARBONATE 23.9 MEQ/L (21.0-32.0); CALCIUM 9.2 MG/DL (8.5-10.1); CREATININE 0.29 MG/DL (0.50-1.00); MAGNESIUM 1.9 MG/DL (1.5-2.5)
[2018-01-25 09:47] LABS: PHOSPHORUS 2.2 MG/DL (2.5-4.9)
[2018-01-25 12:00] VITALS: BP 123/84; PULSE 92; RESP 14; TEMP 98.8
[2018-01-25] MEDS: LEVOFLOXACIN 750 MG TAB PEG SCH (13:08)
[2018-01-25] MEDS: SODIUM CHLOR 0.9% 1000 ML INJ 1,000 ML IV SCH (13:09)
[2018-01-25] MEDS ORDERED: POTASSIUM CHLORIDE 25 MEQ EFFERVESCENT TAB PEG ONE (15:45)
[2018-01-25 16:00] VITALS: BP 124/81; PULSE 124; RESP 14; TEMP 99
[2018-01-25] MEDS: POTASSIUM CHLOR 10 MEQ PREMIX 100 ML IV SCH ×3 (17:11→18:04)
--- NOTE | 2018-01-25 18:49 | HHI.PR ---
Subjective Remarks Patient seen today around 3 PM. No acute changes per nursing. Nursing points out hypoglycemia. start tube feeds. Objective Vital Signs Date Time Temp Pulse Resp B/P (MAP) Pulse Ox O2 Delivery O2 Flow Rate FiO2 01/25/18 08:00 98.2 90 14 137/82 (100) 98 01/25/18 04:00 78 20 152/90 (110) 99 01/24/18 20:00 98.9 103 20 136/94 (108) 99 I/O 01/24/18 01/24/18 01/24/18 01/25/18 01/25/18 01/25/18 07:00 15:00 23:00 07:00 15:00 23:00 Intake Total 240 ml 1020 ml 300 ml 400 ml Output Total 1900 ml 580.0 ml 2480 ml 1450 ml Balance -1660 ml 440.0 ml -2180 ml -1050 ml IV Total 1020 ml Tube Feeding 240 ml 200 ml Tube Irrigant 400 ml Other 100 ml Output Urine Total 1900 ml 1900 ml 1450 ml Gastric Drainage Total 580 ml Tube Feeding Residual Discard 580.0 ml # Bowel Movements 1 3 Result Diagram: 01/25/1882401/25/1825 Procedures No procedures performed Objective Remarks GENERAL: Patient lying in bed. Appears comfortable. Appears to answer no againin regards to if she has pain. No other meaningful communication. no change on exam. SKIN: Warm and dry. HEAD: Normocephalic. EYES: No scleral icterus. No injection or drainage. NECK: Supple, trachea midline. No JVD. CARDIOVASCULAR: Regular rate and rhythm without murmurs, gallops, or rubs. RESPIRATORY: Breath sounds equal bilaterally. No accessory muscle use. GASTROINTESTINAL: Abdomen soft, non-tender, nondistended. PEG tube in place without leakage. MUSCULOSKELETAL: No cyanosis, or edema. BACK: Nontender without obvious deformity. No CVA tenderness. A/P Assessment and Plan 01/25.restart into disease. Residual 0. This continue pain meds. Discussed with nursing. 01/24. Residual from PEG tube 550 mL. Likely multifactorial secondary to pain medication which was started recently, as well as calcium channel [place]. Patient has never complained of pain as far as I know. Denies any pain today. Obviously she has wounds which appear painful but no objective evidence of pain. We'll discontinue PAIN MEDS due to likely exacerbating bowel transit issues. 62-year-old female with history of hemorrhagic stroke and resulting neurocognitive decline: //Status post hemorrhagic CVA, new acute and subacute stroke with chronic right hemiplegia and aphasia. Questionable new facial droop on 01/10; Brain MRI 01/11 showed acute to subacute left thalamic infarct with mild hemorrhagic component in patient with previous history of relatively large left thalamic CVA Neuro and neurosurgery consulted; no surgical intervention needed. Agreed to pharmacologic prophylaxis Facial droop improved Repeat CT on 01/20 stable. PT/OT poor participation //UTI Ctx growing Enterobacter aerogenes. Patient received Levaquin x 14 days (01/03 -01/16) Repeat urinalysis showed Yenifer anticoagulates negative staph. Started on Diflucan, still on Levaquin (for sacral wound) replace Cruz catheter after Diflucan started //Stage IV sacral pressure ulcer MRI showing bony edema and marrow replacement concerning for osteomyelitis; ID following, continue Levaquin and Flagyl until February Wound care following, S/P bedside debridement 01/11 Repositioning assistance, off pressure relief Continue management as per infectious disease //History of hemorrhagic CVA Continue PT, OT, and ST Poor prognosis. Patient does not participate well with therapy Palliative care following //Dysphagia Due to hemorrhagic stroke Status post PEG placement on 05/09/17, PEG tube out 01/18/2018, consult invasive radiology for PEG tube reinsertion, medically necessary. Continue tube feedings //HTN Continue nifedipine 40 mg Q6H, Apresoline 50 mg Q6H, Metoprolol 100 mg BID, HCTZ 25 mg Daily HOLD FOR HYPOTENSION Vasotec IV PRN, Clonidine PRN //Hyperglycemia Glucerna for tube feeds Follow blood sugars intermittently //Xeroderma on bilateral feet Lac-Hydrin 12% Lotion continued //Depression Continue Lexapro 10 mg via PEG daily DVT Prophylaxis Heparin (cleared by neurosurgery) Discharge Planning Very poor prognosis. Patient does not display any meaningful involvement with therapy. Difficult DC. Awaiting placement Kevyn Cheema MD Jan 25, 2018 18:49
[2018-01-25 20:00] VITALS: BP 117/81; PULSE 125; RESP 16; TEMP 99.8; O2SAT 98
[2018-01-26] VITALS (15 sets, daily range): BP systolic 76–160; BP diastolic 48–110; PULSE 71–95; RESP 14–18; TEMP 98.1–99.4; O2SAT 92–99
[2018-01-26] MEDS: metroNIDAZOLE 500 MG TAB PEG SCH ×3 (01:15→16:22)
[2018-01-26] MEDS: hydrALAZINE HCL 100 MG TAB PEG SCH ×3 (05:14→21:00)
[2018-01-26] MEDS: NIFEdipine 20 MG CAP PEG SCH ×3 (05:14→21:01)
[2018-01-26] MEDS: FREE WATER G-TUBE SCH ×4 (05:14→17:34)
[2018-01-26] MEDS: LANSOPRAZOLE SOLUTAB 30 MG TAB G-TUBE SCH (09:44)
[2018-01-26] MEDS: ESCITALOPRAM OXALATE 10 MG TAB PEG SCH (09:44)
[2018-01-26] MEDS: FLUCONAZOLE 100 MG TAB PEG SCH (09:44)
[2018-01-26] MEDS: HYDROCHLOROTHIAZIDE 25 MG TAB PEG SCH (09:44)
[2018-01-26] MEDS: LACTOBACILLUS ACIDOPHILUS TAB PEG SCH ×3 (09:44→17:34)
[2018-01-26] MEDS: METOPROLOL TARTRATE 25 MG TAB PEG SCH ×2 (09:44→21:00)
[2018-01-26] MEDS: ONDANSETRON HCL 4 MG/5 ML UDC PEG PRN (09:45)
[2018-01-26] MEDS: COLLAGENASE OINT 30 GM TUBE TOPICAL SCH (09:45)
[2018-01-26] MEDS: SODIUM HYPOCHLORITE 0.125% 500 ML BTL TOPICAL SCH (09:45)
[2018-01-26] MEDS: LACTIC ACID (AMMONIUM LACTATE) 12% LOTION 225 GM BTL TOPICAL SCH ×2 (09:45→21:01)
[2018-01-26] MEDS: HEPARIN SODIUM - SQ 10,000 UNITS/ML VIAL SQ SCH ×2 (09:45→21:01)
[2018-01-26] MEDS: SODIUM CHLOR 0.9% 1000 ML INJ 1,000 ML IV SCH (09:46)
[2018-01-26] MEDS: LEVOFLOXACIN 750 MG TAB PEG SCH (16:22)
--- NOTE | 2018-01-26 19:44 | HHI.PR ---
Subjective Remarks Patient seen today around 1 PM. No acute changes per nursing. Patient appears to deny pain. Objective Vital Signs Date Time Temp Pulse Resp B/P (MAP) Pulse Ox O2 Delivery O2 Flow Rate FiO2 01/26/18 08:00 99.0 86 16 130/78 (95) 96 01/26/18 04:00 98.1 81 16 116/84 (95) 99 01/26/18 00:00 99.4 91 16 93/67 (76) 98 01/25/18 20:00 99.8 125 16 117/81 (93) 98 I/O 01/25/18 01/25/18 01/25/18 01/26/18 01/26/18 01/26/18 07:00 15:00 23:00 07:00 15:00 23:00 Intake Total 400 ml 2100 ml 630 ml 1000 ml Output Total 1450 ml 1300 ml 650 ml Balance -1050 ml 800 ml -20 ml 1000 ml IV Total 900 ml 1000 ml Tube Feeding 900 ml 280 ml Tube Irrigant 400 ml Other 300 ml 350 ml Output Urine Total 1450 ml 1300 ml 650 ml # Bowel Movements 2 1 Result Diagram: 01/25/1882401/25/18824 Procedures No procedures performed Objective Remarks GENERAL: Patient lying in bed. Appears comfortable. Appears to answer no again in regards to if she has pain. No other meaningful communication. again, no change on exam. SKIN: Warm and dry. HEAD: Normocephalic. EYES: No scleral icterus. No injection or drainage. NECK: Supple, trachea midline. No JVD. CARDIOVASCULAR: Regular rate and rhythm without murmurs, gallops, or rubs. RESPIRATORY: Breath sounds equal bilaterally. No accessory muscle use. GASTROINTESTINAL: Abdomen soft, non-tender, nondistended. PEG tube in place without leakage. MUSCULOSKELETAL: No cyanosis, or edema. BACK: Nontender without obvious deformity. No CVA tenderness. A/P Assessment and Plan 01/25. No gastric residual. Patient with evidence of thrush. Start nystatin orally. Hypokalemia yesterday 3.0 status post replacement. Repeat tomorrow 01/25.gastric residual 550. Residual 0. DIScontinue pain meds. Discussed with nursing. 01/24. Residual from PEG tube 550 mL. Likely multifactorial secondary to pain medication which was started recently, as well as calcium channel [place]. Patient has never complained of pain as far as I know. Denies any pain today. Obviously she has wounds which appear painful but no objective evidence of pain. We'll discontinue PAIN MEDS due to likely exacerbating bowel transit issues. 62-year-old female with history of hemorrhagic stroke and resulting neurocognitive decline: //Status post hemorrhagic CVA, new acute and subacute stroke with chronic right hemiplegia and aphasia. Questionable new facial droop on 01/10; Brain MRI 01/11 showed acute to subacute left thalamic infarct with mild hemorrhagic component in patient with previous history of relatively large left thalamic CVA Neuro and neurosurgery consulted; no surgical intervention needed. Agreed to pharmacologic prophylaxis Facial droop improved Repeat CT on 01/20 stable. PT/OT poor participation //UTI Ctx growing Enterobacter aerogenes. Patient received Levaquin x 14 days (01/03 -01/16) Repeat urinalysis showed Yenifer anticoagulates negative staph. Started on Diflucan, still on Levaquin (for sacral wound) replace Cruz catheter after Diflucan started //Stage IV sacral pressure ulcer MRI showing bony edema and marrow replacement concerning for osteomyelitis; ID following, continue Levaquin and Flagyl until February Wound care following, S/P bedside debridement 01/11 Repositioning assistance, off pressure relief Continue management as per infectious disease //History of hemorrhagic CVA Continue PT, OT, and ST Poor prognosis. Patient does not participate well with therapy Palliative care following //Dysphagia Due to hemorrhagic stroke Status post PEG placement on 05/09/17, PEG tube out 01/18/2018, consult invasive radiology for PEG tube reinsertion, medically necessary. Continue tube feedings //HTN Continue nifedipine 40 mg Q6H, Apresoline 50 mg Q6H, Metoprolol 100 mg BID, HCTZ 25 mg Daily HOLD FOR HYPOTENSION Vasotec IV PRN, Clonidine PRN //Hyperglycemia Glucerna for tube feeds Follow blood sugars intermittently //Xeroderma on bilateral feet Lac-Hydrin 12% Lotion continued //Depression Continue Lexapro 10 mg via PEG daily DVT Prophylaxis Heparin (cleared by neurosurgery) Discharge Planning Very poor prognosis. Patient does not display any meaningful involvement with therapy. Difficult DC. Awaiting placement Kevyn Cheema MD Jan 26, 2018 19:44
[2018-01-26] MEDS: NYSTATIN SUSP 500,000 U/5 ML CUP SWISH-SPIT SCH (21:01)
[2018-01-27] VITALS: BP 122/89; PULSE 81; RESP 16; TEMP 97.6; O2SAT 98
[2018-01-27] MEDS: metroNIDAZOLE 500 MG TAB PEG SCH ×3 (00:56→18:09)
[2018-01-27 04:00] VITALS: BP 128/93; PULSE 70; RESP 16; TEMP 98.4; O2SAT 98
[2018-01-27] MEDS: hydrALAZINE HCL 100 MG TAB PEG SCH ×3 (05:04→21:18)
[2018-01-27] MEDS: NIFEdipine 20 MG CAP PEG SCH ×3 (05:04→21:19)
[2018-01-27] MEDS: FREE WATER G-TUBE SCH ×5 (05:04→23:20)
[2018-01-27 08:00] VITALS: BP 113/84; PULSE 80; RESP 16; TEMP 98.9; O2SAT 94
[2018-01-27] MEDS: ONDANSETRON HCL 4 MG/5 ML UDC PEG PRN (09:37)
[2018-01-27] MEDS: LANSOPRAZOLE SOLUTAB 30 MG TAB G-TUBE SCH (09:37)
[2018-01-27] MEDS: FLUCONAZOLE 100 MG TAB PEG SCH (09:37)
[2018-01-27] MEDS: LACTOBACILLUS ACIDOPHILUS TAB PEG SCH ×3 (09:37→18:09)
[2018-01-27] MEDS: NYSTATIN SUSP 500,000 U/5 ML CUP SWISH-SPIT SCH ×4 (09:37→20:33)
[2018-01-27] MEDS: ESCITALOPRAM OXALATE 10 MG TAB PEG SCH (09:37)
[2018-01-27] MEDS: METOPROLOL TARTRATE 25 MG TAB PEG SCH ×2 (09:37→20:33)
[2018-01-27] MEDS: HEPARIN SODIUM - SQ 10,000 UNITS/ML VIAL SQ SCH ×2 (09:37→20:33)
[2018-01-27] MEDS: COLLAGENASE OINT 30 GM TUBE TOPICAL SCH (09:38)
[2018-01-27] MEDS: SODIUM HYPOCHLORITE 0.125% 500 ML BTL TOPICAL SCH (09:38)
[2018-01-27] MEDS: LACTIC ACID (AMMONIUM LACTATE) 12% LOTION 225 GM BTL TOPICAL SCH ×2 (09:38→20:36)
[2018-01-27] MEDS: HYDROCHLOROTHIAZIDE 25 MG TAB PEG SCH (09:39)
--- NOTE | 2018-01-27 09:57 | HHI.PR ---
Subjective Remarks Follow-up on patient with hemorrhagic CVA. Patient seen and examined. Discussed with nursing staff, no acute issues noted. Objective Vitals Vital Signs Date Time Temp Pulse Resp B/P (MAP) Pulse Ox O2 Delivery O2 Flow Rate FiO2 01/27/18 08:00 98.9 80 16 113/84 (94) 94 01/27/18 04:00 98.4 70 16 128/93 (105) 98 01/27/18 00:00 97.6 81 16 122/89 (100) 98 01/26/18 20:00 98.6 88 16 114/76 (89) 97 01/26/18 18:30 84 14 146/84 (104) 96 01/26/18 18:00 99.1 74 16 116/64 (81) 93 01/26/18 17:15 95 14 76/48 (57) 96 01/26/18 17:10 95 14 77/52 (60) 96 01/26/18 17:00 95 14 79/52 (61) 96 01/26/18 16:54 90 16 79/54 (62) 94 01/26/18 16:45 80 18 160/110 (127) 96 01/26/18 16:20 80 14 160/107 (124) 96 01/26/18 15:00 71 16 151/101 (118) 92 01/26/18 13:40 72 14 146/104 (118) 96 01/26/18 12:00 98.9 72 14 126/88 (101) 94 I/O 01/26/18 01/26/18 01/26/18 01/27/18 01/27/18 01/27/18 07:00 15:00 23:00 07:00 15:00 23:00 Intake Total 630 ml 1300 ml 1500 ml 900 ml Output Total 650 ml 1780.0 ml 1500 ml Balance -20 ml 1300 ml -280.0 ml -600 ml Intake Oral 0 ml IV Total 1300 ml Tube Feeding 280 ml 1200 ml 300 ml Other 350 ml 300 ml 600 ml Output Urine Total 650 ml 1200 ml 1500 ml Gastric Drainage Total 580 ml Tube Feeding Residual Discard 0 ml # Bowel Movements 1 1 0 Result Diagram: 01/25/18 0825 01/25/18 0825 Imaging Last Impressions Head CT 01/20/18 0000 Signed Impressions: Service Date/Time: Sunday, January 21, 2018 16:13 - CONCLUSION: 1. Small area of encephalomalacia with some surrounding hemorrhage in the left basal ganglia most consistent with an area of hemorrhagic infarct. This is stable compared to previous exams. 2. Cortical atrophy and microvascular ischemic demyelinative change. Timmy Dumas MD Chest X-Ray 01/19/18 0000 Signed Impressions: Service Date/Time: Friday, January 19, 2018 17:12 - CONCLUSION: Trace left base atelectasis. Hu Henderson MD Gastrostomy Tube Placement 01/18/18 0000 Signed Impressions: Service Date/Time: January 16:41 - CONCLUSION: Uncomplicated gastrostomy tube replacement through an existing tract. Timmy Dumas MD Brain MRI 01/11/18 0000 Signed Impressions: Service Date/Time: January 08:45 - CONCLUSION: 1. Focal area of restricted diffusion in the left thalmus characteristic of an acute to subacute infarct. 2. GRE images demonstrate subacute hemorrhage associated with the infarct in the left thalamus. 3. GRE images also demonstrate punctate areas of microhemorrhage noted in the deep right mid parietal lobe, right occipital lobe and bilateral basal ganglia regions, left greater than right. 4. Diffuse bilateral cortical atrophy and chronic white matter changes. Luciano Morales MD Abdomen/Pelvis CT 01/09/18 0000 Signed Impressions: Service Date/Time: Tuesday, January 09, 2018 18:48 - CONCLUSION: 1. There is a sacral decubitus wound/ulcer which extends to the sacrum. Prior MRI demonstrated abnormal sacrum in the inferior aspect of the sacrum and coccyx. There is also presacral edema. These findings are highly suspicious for osteomyelitis. 2. Nonacute findings include 3 mm nonobstructing right renal stone and multi-fibroid uterus. Hu Cuenca MD Sacrum/Coccyx MRI 01/06/18 0000 Signed Impressions: Service Date/Time: Saturday, January 06, 2018 08:30 - CONCLUSION: Large decubitus ulcer posteriorly with not only bony edema and marrow replacement concerning for osteomyelitis but it extends to the presacral fat is well where there is marked enhancement and fluid on the T2-weighted sequences. The coccygeal involvement is at least 3.5 cm in length. Eliud Du MD Abdomen X-Ray 2/7/18 0000 Signed Impressions: Service Date/Time: Wednesday, December 13, 2017 14:17 - CONCLUSION: PEG tube in stomach.. Harry Dumas MD FACR Upper Extremity Ultrasound 11/06/17 0000 Signed Impressions: Service Date/Time: Monday, November 06, 2017 14:17 - CONCLUSION: Normal examination. K. Byron Perez MD Pelvis CT 10/13/17 0000 Signed Impressions: Service Date/Time: Friday, October 13, 2017 12:02 - CONCLUSION: 1. Decubitus ulcer with small abscess in the right posterior perineal region measuring 3.1 x 4.6 cm. There is also a small abscess posterior and to the left of the rectum measuring 3.2 x 2.3 cm. Jann Weber MD Neck CTA 04/10/17 0000 Signed Impressions: Service Date/Time: Monday, April 10, 2017 22:28 - CONCLUSION: The internal carotid arteries are normal bilaterally. No significant atherosclerotic disease is noted. Eliud Du MD Head CTA 04/10/17 0000 Signed Impressions: Service Date/Time: Monday, April 10, 2017 22:50 - CONCLUSION: Mild dilatation of the basilar tip without discrete aneurysm. Some narrowing of the left middle cerebral branch after the bifurcation. Prominent left thalamic hemorrhage. Eliud Du MD Objective Remarks GENERAL: Well-nourished, well-developed female patient in [facility]. Lying in hospital bed. Awake. Nonverbal. Follows commands. SKIN: Warm and dry. No rash. HEAD: Normocephalic. EYES: No scleral icterus. No injection or drainage. ENT: No nasal bleeding or discharge. Mucous membranes pink and moist. NECK: Supple. Trachea midline. CARDIOVASCULAR: Regular rate and rhythm. 3/6 blowing murmur appreciated. RESPIRATORY: No accessory muscle use. Breath sounds equal bilaterally. GASTROINTESTINAL: Abdomen soft, non-tender, nondistended. Normoactive bowel sounds x4. s/p PEG tube placement, site C/D/I. MUSCULOSKELETAL: No edema noted. RUE and RLE flaccid. Spontaneous movement noted in LUE. NEUROLOGICAL: Awake. Nonberbal. Procedures Peg Tube placed 05/08/17 (Dr. De Los Santos) Medications and IVs Current Medications Medications (Trade) Dose Ordered Sig/Reymundo Route Start Time Stop Time Status Last Admin (Dulcolax Supp) 10 mg DAILY PRN RECTAL 04/10/17 22:00 (Lac-Hydrin 12% Lotion) 1 applic BID TOPICAL 05/04/17 14:00 01/27/18 09:38 (Prevacid Odt) 30 mg DAILY G-TUBE 05/10/17 09:00 01/27/18 09:37 (Apresoline) 25 mg Q4HR PRN PEG 05/18/17 14:45 01/23/18 22:03 (Zofran Liq) 4 mg Q6H PRN PEG 05/26/17 10:00 01/27/18 09:37 (Tylenol) 650 mg Q6H PRN PEG 06/16/17 16:00 Future Hold 10/17/17 19:29 (Senna Liq) 8.8 mg DAILY PEG 06/29/17 09:00 Future Hold 10/17/17 10:02 (Pill Splitter) 1 ea UNSCH PRN OTHER 10/17/17 17:45 12/08/17 20:45 (Free Water) 150 ml Q6HR G-TUBE 10/19/17 12:00 01/26/18 17:34 (Lopressor) 25 mg BID PEG 11/24/17 21:00 01/27/18 09:37 (Apresoline) 50 mg Q8HR PEG 12/12/17 22:00 01/27/18 05:04 (Santyl Oint) 1 applic DAILY TOPICAL 12/25/17 17:00 01/27/18 09:38 (Lexapro) 10 mg DAILY PEG 01/02/18 17:15 01/27/18 09:37 (Heparin Inj) 5,000 units Q12HR SQ 01/13/18 09:00 01/27/18 09:37 (Dakin'S 0.125% Soln) 50 ml DAILY TOPICAL 01/13/18 20:00 01/27/18 09:38 (Flagyl) 500 mg Q8H PEG 01/19/18 09:00 02/05/18 23:00 01/27/18 09:37 (Miralax) 17 gm DAILY PRN PEG 01/19/18 09:15 (Hydrodiuril) 25 mg DAILY PEG 01/19/18 09:03 01/27/18 09:39 (Lactinex) 1 tab TID PEG 01/19/18 18:00 01/27/18 09:37 (Diflucan) 100 mg DAILY PEG 01/20/18 09:00 02/02/18 08:59 01/27/18 09:37 (Levaquin) 750 mg DAILY@1200 PEG 01/20/18 12:00 02/21/18 11:59 01/26/18 16:22 (Procardia) 40 mg Q8HR PEG 01/25/18 06:00 01/27/18 05:04 (Mycostatin Liq) 2.5 ml QID SWISH-SPIT 01/26/18 21:00 01/29/18 20:59 01/27/18 09:37 A/P Problem List: (1) Major neurocognitive disorder ICD Code: F03.90 - Unspecified dementia without behavioral disturbance (2) Hemiparesis ICD Code: G81.90 - Hemiplegia, unspecified affecting unspecified side Status: Acute (3) Intracranial hemorrhage ICD Code: I62.9 - Nontraumatic intracranial hemorrhage, unspecified Status: Chronic (4) Aphasia ICD Code: R47.01 - Aphasia Assessment and Plan 62-year-old female with history of hemorrhagic stroke and resulting neurocognitive decline: //Status post hemorrhagic CVA, new acute and subacute stroke with chronic right hemiplegia and aphasia. Questionable new facial droop on 01/10; Brain MRI 01/11 showed acute to subacute left thalamic infarct with mild hemorrhagic component in patient with previous history of relatively large left thalamic CVA Neuro and neurosurgery consulted; no surgical intervention needed. Agreed to pharmacologic prophylaxis Facial droop improved Repeat CT on 01/20 stable. PT/OT poor participation //Neutropenia ?etiology, possible medication side effect continue to monitor CBC closely if white count fails to improve or worsens, consider Hematology consultation //UTI Ctx growing Enterobacter aerogenes. Patient received Levaquin x 14 days (01/03 -01/16) Repeat urinalysis showed Yenifer and Staph epidermidis. Started on Diflucan , still on Levaquin (for sacral wound) replace Cruz catheter after Diflucan started //Stage IV sacral pressure ulcer hx PSAE infected sacral decubitus MRI showing bony edema and marrow replacement concerning for osteomyelitis; ID following, continue Levaquin and Flagyl until February Wound care following, S/P bedside debridement 01/11 Repositioning assistance, off pressure relief Continue management as per infectious disease //History of hemorrhagic CVA Continue PT, OT, and ST Poor prognosis. Patient does not participate well with therapy Palliative care following //Dysphagia Due to hemorrhagic stroke Status post PEG placement on 05/09/17, PEG tube out 01/18/2018, consult invasive radiology for PEG tube reinsertion, medically necessary. Continue tube feedings //HTN Continue nifedipine 40 mg Q8H, Apresoline 50 mg Q8H, Metoprolol 25 mg BID, HCTZ 25 mg Daily HOLD FOR HYPOTENSION Vasotec IV PRN, Clonidine PRN //Hyperglycemia Glucerna for tube feeds Follow blood sugars intermittently //Xeroderma on bilateral feet Lac-Hydrin 12% Lotion continued //Depression Continue Lexapro 10 mg via PEG daily //Thrush Continue on nystatin DVT Prophylaxis Heparin (cleared by neurosurgery) Discussed with nursing staff, Dr. Cano Discharge Planning Patient with poor prognosis. Difficult discharge. Awaiting placement, case management following. Tayla Bustos Jan 27, 2018 09:57
[2018-01-27 12:00] VITALS: BP 130/64; PULSE 90; RESP 20; TEMP 98.9; O2SAT 96
[2018-01-27 13:03] LABS: AUTOMATED NEUTROPHIL # 1.2 TH/MM3 (1.8-7.7); BASOPHIL % 0.5 % (0.0-2.0); EOSINOPHIL # 0.1 TH/MM3 (0-0.4); EOSINOPHIL % 3.8 % (0.0-4.0); HEMOGLOBIN 12.5 GM/DL (11.6-15.3); LYMPH % 40.2 % (9.0-44.0); LYMPHOCYTE # 1.2 TH/MM3 (1.0-4.8); MEAN CELL VOLUME 84.4 FL (80.0-100.0); MEAN CORPUSCULAR HEMOGLOBIN 27.7 PG (27.0-34.0); MEAN CORPUSCULAR HGB CONC 32.9 % (32.0-36.0); MEAN PLATELET VOLUME 9.4 FL (7.0-11.0); MONO % 16.9 % (0.0-8.0); MONOCYTE # 0.5 TH/MM3 (0-0.9); NEUT % 38.6 % (16.0-70.0); PLATELET COUNT 211 TH/MM3 (150-450); RED CELL DISTRIBUTION WIDTH 19.4 % (11.6-17.2)
[2018-01-27 13:12] LABS: BICARBONATE 25.6 MEQ/L (21.0-32.0); CALCIUM 8.8 MG/DL (8.5-10.1); CREATININE 0.34 MG/DL (0.50-1.00)
[2018-01-27 13:17] LABS: ALBUMIN 3.2 GM/DL (3.4-5.0); BICARBONATE 28.8 MEQ/L (21.0-32.0); CALCIUM 9.1 MG/DL (8.5-10.1); CREATININE 0.34 MG/DL (0.50-1.00); MAGNESIUM 2.2 MG/DL (1.5-2.5); PHOSPHORUS 2.9 MG/DL (2.5-4.9)
[2018-01-27 16:00] VITALS: BP 118/78; PULSE 80; RESP 20; TEMP 99.1; O2SAT 95
[2018-01-27] MEDS: LEVOFLOXACIN 750 MG TAB PEG SCH (18:09)
[2018-01-27 20:41] VITALS: BP 125/93; PULSE 90; RESP 16; TEMP 97.6; O2SAT 98
[2018-01-28] VITALS (8 sets, daily range): BP systolic 87–154; BP diastolic 66–108; PULSE 78–112; RESP 16–18; TEMP 98.1–99.1; O2SAT 94–99
[2018-01-28] MEDS: metroNIDAZOLE 500 MG TAB PEG SCH ×3 (01:00→18:30)
[2018-01-28] MEDS: NIFEdipine 20 MG CAP PEG SCH ×3 (05:52→21:29)
[2018-01-28] MEDS: hydrALAZINE HCL 100 MG TAB PEG SCH ×2 (05:52→18:30)
[2018-01-28] MEDS: FREE WATER G-TUBE SCH ×3 (05:52→18:00)
[2018-01-28 07:45] LABS: AUTOMATED NEUTROPHIL # 1.4 TH/MM3 (1.8-7.7); BASOPHIL % 0.6 % (0.0-2.0); EOSINOPHIL # 0.1 TH/MM3 (0-0.4); EOSINOPHIL % 3.7 % (0.0-4.0); HEMATOCRIT 37.8 % (35.0-46.0); HEMOGLOBIN 12.1 GM/DL (11.6-15.3); LYMPH % 37.7 % (9.0-44.0); LYMPHOCYTE # 1.4 TH/MM3 (1.0-4.8); MEAN CELL VOLUME 83.3 FL (80.0-100.0); MEAN CORPUSCULAR HEMOGLOBIN 26.7 PG (27.0-34.0); MEAN PLATELET VOLUME 9.1 FL (7.0-11.0); MONOCYTE # 0.7 TH/MM3 (0-0.9); PLATELET COUNT 179 TH/MM3 (150-450); RED BLOOD COUNT 4.54 MIL/MM3 (4.00-5.30); RED CELL DISTRIBUTION WIDTH 18.8 % (11.6-17.2); WHITE BLOOD COUNT 3.6 TH/MM3 (4.0-11.0)
[2018-01-28] MEDS: METOPROLOL TARTRATE 25 MG TAB PEG SCH ×2 (08:28→21:29)
[2018-01-28] MEDS: HEPARIN SODIUM - SQ 10,000 UNITS/ML VIAL SQ SCH ×2 (08:28→21:29)
[2018-01-28] MEDS: LACTOBACILLUS ACIDOPHILUS TAB PEG SCH ×3 (08:28→18:30)
[2018-01-28] MEDS: ESCITALOPRAM OXALATE 10 MG TAB PEG SCH (08:28)
[2018-01-28] MEDS: FLUCONAZOLE 100 MG TAB PEG SCH (08:28)
[2018-01-28] MEDS: LANSOPRAZOLE SOLUTAB 30 MG TAB G-TUBE SCH (08:28)
[2018-01-28] MEDS: NYSTATIN SUSP 500,000 U/5 ML CUP SWISH-SPIT SCH ×4 (08:28→21:29)
[2018-01-28] MEDS: LACTIC ACID (AMMONIUM LACTATE) 12% LOTION 225 GM BTL TOPICAL SCH ×2 (08:29→21:29)
[2018-01-28] MEDS: COLLAGENASE OINT 30 GM TUBE TOPICAL SCH (08:29)
[2018-01-28] MEDS: SODIUM HYPOCHLORITE 0.125% 500 ML BTL TOPICAL SCH (08:29)
--- NOTE | 2018-01-28 09:43 | HHI.PR ---
Subjective Remarks Patient seen and examined this morning. Afebrile vital signs stable. Case discussed with nurse no acute events to report. Objective Vitals Vital Signs Date Time Temp Pulse Resp B/P (MAP) Pulse Ox O2 Delivery O2 Flow Rate FiO2 01/28/18 03:41 98.8 83 16 148/98 (115) 97 01/28/18 00:00 98.6 90 16 149/108 (122) 98 01/27/18 20:41 97.6 90 16 125/93 (104) 98 01/27/18 16:00 99.1 80 20 118/78 (91) 95 01/27/18 12:00 98.9 90 20 130/64 (86) 96 I/O 01/27/18 01/27/18 01/27/18 01/28/18 01/28/18 01/28/18 07:00 15:00 23:00 07:00 15:00 23:00 Intake Total 900 ml 1150 ml 900 ml Output Total 1500 ml 1500.0 ml 550 ml Balance -600 ml -350.0 ml 350 ml Intake Oral 0 ml 0 ml Tube Feeding 300 ml 700 ml 300 ml Other 600 ml 450 ml 600 ml Output Urine Total 1500 ml 1200 ml 550 ml Gastric Drainage Total 300 ml Tube Feeding Residual Discard 0 ml # Bowel Movements 0 3 1 Result Diagram: 01/28/18 0717 01/27/18 1208 Imaging Last Impressions Head CT 01/20/18 0000 Signed Impressions: Service Date/Time: Sunday, January 21, 2018 16:13 - CONCLUSION: 1. Small area of encephalomalacia with some surrounding hemorrhage in the left basal ganglia most consistent with an area of hemorrhagic infarct. This is stable compared to previous exams. 2. Cortical atrophy and microvascular ischemic demyelinative change. Timmy Dumas MD Chest X-Ray 01/19/18 0000 Signed Impressions: Service Date/Time: Friday, January 19, 2018 17:12 - CONCLUSION: Trace left base atelectasis. Hu Henderson MD Gastrostomy Tube Placement 01/18/18 0000 Signed Impressions: Service Date/Time: January 16:41 - CONCLUSION: Uncomplicated gastrostomy tube replacement through an existing tract. Timmy Dumas MD Brain MRI 01/11/18 0000 Signed Impressions: Service Date/Time: January 08:45 - CONCLUSION: 1. Focal area of restricted diffusion in the left thalmus characteristic of an acute to subacute infarct. 2. GRE images demonstrate subacute hemorrhage associated with the infarct in the left thalamus. 3. GRE images also demonstrate punctate areas of microhemorrhage noted in the deep right mid parietal lobe, right occipital lobe and bilateral basal ganglia regions, left greater than right. 4. Diffuse bilateral cortical atrophy and chronic white matter changes. Luciano Morales MD Abdomen/Pelvis CT 01/09/18 0000 Signed Impressions: Service Date/Time: Tuesday, January 09, 2018 18:48 - CONCLUSION: 1. There is a sacral decubitus wound/ulcer which extends to the sacrum. Prior MRI demonstrated abnormal sacrum in the inferior aspect of the sacrum and coccyx. There is also presacral edema. These findings are highly suspicious for osteomyelitis. 2. Nonacute findings include 3 mm nonobstructing right renal stone and multi-fibroid uterus. Hu Cuenca MD Sacrum/Coccyx MRI 01/06/18 0000 Signed Impressions: Service Date/Time: Saturday, January 06, 2018 08:30 - CONCLUSION: Large decubitus ulcer posteriorly with not only bony edema and marrow replacement concerning for osteomyelitis but it extends to the presacral fat is well where there is marked enhancement and fluid on the T2-weighted sequences. The coccygeal involvement is at least 3.5 cm in length. Eliud Du MD Abdomen X-Ray 12/13/17 0000 Signed Impressions: Service Date/Time: Wednesday, December 13, 2017 14:17 - CONCLUSION: PEG tube in stomach.. Harry Dumas MD FACR Upper Extremity Ultrasound 11/06/17 0000 Signed Impressions: Service Date/Time: Monday, November 06, 2017 14:17 - CONCLUSION: Normal examination. K. Byron Perez MD Pelvis CT 10/13/17 0000 Signed Impressions: Service Date/Time: Friday, October 13, 2017 12:02 - CONCLUSION: 1. Decubitus ulcer with small abscess in the right posterior perineal region measuring 3.1 x 4.6 cm. There is also a small abscess posterior and to the left of the rectum measuring 3.2 x 2.3 cm. Jann Weber MD Neck CTA 04/10/17 0000 Signed Impressions: Service Date/Time: Monday, April 10, 2017 22:28 - CONCLUSION: The internal carotid arteries are normal bilaterally. No significant atherosclerotic disease is noted. Eliud Du MD Head CTA 04/10/17 0000 Signed Impressions: Service Date/Time: Monday, April 10, 2017 22:50 - CONCLUSION: Mild dilatation of the basilar tip without discrete aneurysm. Some narrowing of the left middle cerebral branch after the bifurcation. Prominent left thalamic hemorrhage. Eliud Du MD Objective Remarks GENERAL: Well-nourished, well-developed female patient in NAD. Lying in hospital bed. Awake. Nonverbal. Follows commands. SKIN: Warm and dry. No rash. HEAD: Normocephalic. EYES: No scleral icterus. No injection or drainage. ENT: No nasal bleeding or discharge. Mucous membranes pink and moist. NECK: Supple. Trachea midline. CARDIOVASCULAR: Regular rate and rhythm. 3/6 blowing murmur appreciated. RESPIRATORY: No accessory muscle use. Breath sounds equal bilaterally. GASTROINTESTINAL: Abdomen soft, non-tender, nondistended. Normoactive bowel sounds x4. s/p PEG tube placement, site C/D/I. MUSCULOSKELETAL: No edema noted. RUE and RLE flaccid. Spontaneous movement noted in LUE. NEUROLOGICAL: Awake. Nonberbal. Procedures Peg Tube placed 05/08/17 (Dr. De Los Santos) Medications and IVs Current Medications Medications (Trade) Dose Ordered Sig/Reymundo Route Start Time Stop Time Status Last Admin (Dulcolax Supp) 10 mg DAILY PRN RECTAL 04/10/17 22:00 (Lac-Hydrin 12% Lotion) 1 applic BID TOPICAL 05/04/17 14:00 01/28/18 08:29 (Prevacid Odt) 30 mg DAILY G-TUBE 05/10/17 09:00 01/28/18 08:28 (Apresoline) 25 mg Q4HR PRN PEG 05/18/17 14:45 01/23/18 22:03 (Zofran Liq) 4 mg Q6H PRN PEG 05/26/17 10:00 01/27/18 09:37 (Tylenol) 650 mg Q6H PRN PEG 06/16/17 16:00 Future Hold 10/17/17 19:29 (Senna Liq) 8.8 mg DAILY PEG 06/29/17 09:00 Future Hold 10/17/17 10:02 (Pill Splitter) 1 ea UNSCH PRN OTHER 10/17/17 17:45 12/08/17 20:45 (Free Water) 150 ml Q6HR G-TUBE 10/19/17 12:00 01/27/18 18:09 (Lopressor) 25 mg BID PEG 11/24/17 21:00 01/28/18 08:28 (Apresoline) 50 mg Q8HR PEG 12/12/17 22:00 01/28/18 05:52 (Santyl Oint) 1 applic DAILY TOPICAL 12/25/17 17:00 01/28/18 08:29 (Lexapro) 10 mg DAILY PEG 01/02/18 17:15 01/28/18 08:28 (Heparin Inj) 5,000 units Q12HR SQ 01/13/18 09:00 01/28/18 08:28 (Dakin'S 0.125% Soln) 50 ml DAILY TOPICAL 01/13/18 20:00 01/28/18 08:29 (Flagyl) 500 mg Q8H PEG 01/19/18 09:00 02/05/18 23:00 01/28/18 08:28 (Miralax) 17 gm DAILY PRN PEG 01/19/18 09:15 (Hydrodiuril) 25 mg DAILY PEG 01/19/18 09:03 01/27/18 09:39 (Lactinex) 1 tab TID PEG 01/19/18 18:00 01/28/18 08:28 (Diflucan) 100 mg DAILY PEG 01/20/18 09:00 02/02/18 08:59 01/28/18 08:28 (Levaquin) 750 mg DAILY@1200 PEG 01/20/18 12:00 02/21/18 11:59 01/27/18 18:09 (Procardia) 40 mg Q8HR PEG 01/25/18 06:00 01/28/18 05:52 (Mycostatin Liq) 2.5 ml QID SWISH-SPIT 01/26/18 21:00 01/29/18 20:59 01/28/18 08:28 A/P Problem List: (1) Major neurocognitive disorder ICD Code: F03.90 - Unspecified dementia without behavioral disturbance (2) Hemiparesis ICD Code: G81.90 - Hemiplegia, unspecified affecting unspecified side Status: Acute (3) Intracranial hemorrhage ICD Code: I62.9 - Nontraumatic intracranial hemorrhage, unspecified Status: Chronic (4) Aphasia ICD Code: R47.01 - Aphasia Assessment and Plan 62-year-old female with history of hemorrhagic stroke and resulting neurocognitive decline: //Status post hemorrhagic CVA, new acute and subacute stroke with chronic right hemiplegia and aphasia. Questionable new facial droop on 01/10; Brain MRI 01/11 showed acute to subacute left thalamic infarct with mild hemorrhagic component in patient with previous history of relatively large left thalamic CVA Neuro and neurosurgery consulted; no surgical intervention needed. Agreed to pharmacologic prophylaxis Facial droop improved Repeat CT on 01/20 stable. PT/OT poor participation //Neutropenia ?etiology, possible medication side effect continue to monitor CBC closely if white count fails to improve or worsens, consider Hematology consultation //UTI Ctx growing Enterobacter aerogenes. Patient received Levaquin x 14 days (01/03 -01/16) Repeat urinalysis showed Yenifer and Staph epidermidis. Started on Diflucan , still on Levaquin (for sacral wound) replace Cruz catheter after Diflucan started //Stage IV sacral pressure ulcer hx PSAE infected sacral decubitus MRI showing bony edema and marrow replacement concerning for osteomyelitis; ID following, continue Levaquin and Flagyl until February Wound care following, S/P bedside debridement 01/11 Repositioning assistance, off pressure relief Continue management as per infectious disease //History of hemorrhagic CVA Continue PT, OT, and ST Poor prognosis. Patient does not participate well with therapy Palliative care following //Dysphagia Due to hemorrhagic stroke Status post PEG placement on 05/09/17, PEG tube out 01/18/2018, consult invasive radiology for PEG tube reinsertion, medically necessary. Continue tube feedings //HTN Continue nifedipine 40 mg Q8H, Apresoline 50 mg Q8H, Metoprolol 25 mg BID, HCTZ 25 mg Daily HOLD FOR HYPOTENSION Vasotec IV PRN, Clonidine PRN //Hyperglycemia Glucerna for tube feeds Follow blood sugars intermittently //Xeroderma on bilateral feet Lac-Hydrin 12% Lotion continued //Depression Continue Lexapro 10 mg via PEG daily //Thrush Continue on nystatin DVT Prophylaxis Heparin (cleared by neurosurgery) Discharge Planning Patient with poor prognosis. Difficult discharge. Awaiting placement, case management following. Karri Merchant MD, R3 Jan 28, 2018 09:43
[2018-01-28 12:44] LABS: BICARBONATE 29.2 MEQ/L (21.0-32.0); CALCIUM 9.2 MG/DL (8.5-10.1); CREATININE 0.4 MG/DL (0.50-1.00)
[2018-01-28] MEDS: LEVOFLOXACIN 750 MG TAB PEG SCH (13:14)
[2018-01-28] MEDS: HYDROCHLOROTHIAZIDE 25 MG TAB PEG SCH (13:16)
[2018-01-29] VITALS (7 sets, daily range): BP systolic 108–136; BP diastolic 78–97; PULSE 64–106; RESP 14–20; TEMP 98.1–99; O2SAT 98–100
[2018-01-29] MEDS: hydrALAZINE HCL 100 MG TAB PEG SCH ×4 (00:19→21:02)
[2018-01-29] MEDS: metroNIDAZOLE 500 MG TAB PEG SCH ×3 (00:19→17:11)
[2018-01-29] MEDS: FREE WATER G-TUBE SCH ×4 (00:20→17:11)
[2018-01-29] MEDS: NIFEdipine 20 MG CAP PEG SCH ×3 (05:50→21:01)
[2018-01-29] MEDS: ESCITALOPRAM OXALATE 10 MG TAB PEG SCH (09:57)
[2018-01-29] MEDS: COLLAGENASE OINT 30 GM TUBE TOPICAL SCH (09:57)
[2018-01-29] MEDS: METOPROLOL TARTRATE 25 MG TAB PEG SCH ×2 (09:57→20:46)
[2018-01-29] MEDS: HYDROCHLOROTHIAZIDE 25 MG TAB PEG SCH (09:57)
[2018-01-29] MEDS: LACTOBACILLUS ACIDOPHILUS TAB PEG SCH ×3 (09:57→17:12)
[2018-01-29] MEDS: FLUCONAZOLE 100 MG TAB PEG SCH (09:57)
[2018-01-29] MEDS: LANSOPRAZOLE SOLUTAB 30 MG TAB G-TUBE SCH (09:57)
[2018-01-29] MEDS: HEPARIN SODIUM - SQ 10,000 UNITS/ML VIAL SQ SCH ×2 (09:57→20:47)
[2018-01-29] MEDS: LACTIC ACID (AMMONIUM LACTATE) 12% LOTION 225 GM BTL TOPICAL SCH ×2 (09:58→20:59)
[2018-01-29] MEDS: SODIUM HYPOCHLORITE 0.125% 500 ML BTL TOPICAL SCH (09:58)
[2018-01-29] MEDS: NYSTATIN SUSP 500,000 U/5 ML CUP SWISH-SPIT SCH ×3 (09:59→17:11)
[2018-01-29 13:28] LABS: HEMATOCRIT 37.1 % (35.0-46.0); HEMOGLOBIN 11.9 GM/DL (11.6-15.3); MEAN CELL VOLUME 83.4 FL (80.0-100.0); MEAN CORPUSCULAR HEMOGLOBIN 26.7 PG (27.0-34.0); MEAN CORPUSCULAR HGB CONC 32.1 % (32.0-36.0); MEAN PLATELET VOLUME 9.3 FL (7.0-11.0); PLATELET COUNT 260 TH/MM3 (150-450); RED BLOOD COUNT 4.45 MIL/MM3 (4.00-5.30); RED CELL DISTRIBUTION WIDTH 19.3 % (11.6-17.2)
[2018-01-29] MEDS: LEVOFLOXACIN 750 MG TAB PEG SCH (13:48)
--- NOTE | 2018-01-29 16:28 | HHI.PR ---
Subjective Remarks Follow-up CVA Had some issues with supposedly projectile vomiting yesterday will ask nutrition to eval regarding continuous tube feeds instead of bolus tube feeds Objective Vitals Vital Signs Date Time Temp Pulse Resp B/P (MAP) Pulse Ox O2 Delivery O2 Flow Rate FiO2 01/29/18 16:00 98.4 64 14 108/78 (88) 99 01/29/18 12:00 98.5 88 14 114/78 (90) 98 01/29/18 08:00 98.6 76 14 127/78 (94) 99 01/29/18 05:47 100 136/97 (110) 01/29/18 04:27 98.1 88 18 126/93 (104) 100 01/29/18 00:18 98.1 78 17 110/81 (91) 99 01/28/18 22:04 89 87/67 (74) 01/28/18 21:27 98.1 98 18 145/104 (118) 96 I/O 01/28/18 01/28/18 01/28/18 01/29/18 01/29/18 01/29/18 07:00 15:00 23:00 07:00 15:00 23:00 Intake Total 900 ml 1020 ml Output Total 550 ml 901 ml 750 ml Balance 350 ml 119 ml -750 ml Intake Oral 0 ml Tube Feeding 300 ml 720 ml Other 600 ml 300 ml Output Urine Total 550 ml 900 ml 750 ml Stool Total 1 ml # Bowel Movements 1 1 1 Result Diagram: 01/29/18 1250 01/28/18 1209 Other Results Laboratory Tests Test 01/27/18 12:08 01/28/18 07:17 01/28/18 12:09 01/29/18 12:50 White Blood Count 3.0 TH/MM3 3.6 TH/MM3 4.0 TH/MM3 Red Blood Count 4.50 MIL/MM3 4.54 MIL/MM3 4.45 MIL/MM3 Hemoglobin 12.5 GM/DL 12.1 GM/DL 11.9 GM/DL Hematocrit 38.0 % 37.8 % 37.1 % Mean Corpuscular Volume 84.4 FL 83.3 FL 83.4 FL Mean Corpuscular Hemoglobin 27.7 PG 26.7 PG 26.7 PG Mean Corpuscular Hemoglobin Concent 32.9 % 32.0 % 32.1 % Red Cell Distribution Width 19.4 % 18.8 % 19.3 % Platelet Count 211 TH/MM3 179 TH/MM3 260 TH/MM3 Mean Platelet Volume 9.4 FL 9.1 FL 9.3 FL Neutrophils (%) (Auto) 38.6 % 39.0 % Lymphocytes (%) (Auto) 40.2 % 37.7 % Monocytes (%) (Auto) 16.9 % 19.0 % Eosinophils (%) (Auto) 3.8 % 3.7 % Basophils (%) (Auto) 0.5 % 0.6 % Neutrophils # (Auto) 1.2 TH/MM3 1.4 TH/MM3 Lymphocytes # (Auto) 1.2 TH/MM3 1.4 TH/MM3 Monocytes # (Auto) 0.5 TH/MM3 0.7 TH/MM3 Eosinophils # (Auto) 0.1 TH/MM3 0.1 TH/MM3 Basophils # (Auto) 0.0 TH/MM3 0.0 TH/MM3 CBC Comment DIFF FINAL DIFF FINAL Differential Comment Blood Urea Nitrogen 7 MG/DL 11 MG/DL Creatinine 0.34 MG/DL 0.40 MG/DL Random Glucose 92 MG/DL 84 MG/DL Calcium Level 8.8 MG/DL 9.2 MG/DL Sodium Level 139 MEQ/L 140 MEQ/L Potassium Level 3.7 MEQ/L 4.1 MEQ/L Chloride Level 106 MEQ/L 103 MEQ/L Carbon Dioxide Level 25.6 MEQ/L 29.2 MEQ/L Albumin 3.2 GM/DL Phosphorus Level 2.9 MG/DL Magnesium Level 2.2 MG/DL Anion Gap 7 MEQ/L 8 MEQ/L Estimat Glomerular Filtration Rate 235 ML/MIN 195 ML/MIN Imaging Last Impressions Head CT 01/20/18 0000 Signed Impressions: Service Date/Time: Sunday, January 21, 2018 16:13 - CONCLUSION: 1. Small area of encephalomalacia with some surrounding hemorrhage in the left basal ganglia most consistent with an area of hemorrhagic infarct. This is stable compared to previous exams. 2. Cortical atrophy and microvascular ischemic demyelinative change. Timmy Dumas MD Chest X-Ray 01/19/18 0000 Signed Impressions: Service Date/Time: Friday, January 19, 2018 17:12 - CONCLUSION: Trace left base atelectasis. Hu Henderson MD Gastrostomy Tube Placement 01/18/18 0000 Signed Impressions: Service Date/Time: January 16:41 - CONCLUSION: Uncomplicated gastrostomy tube replacement through an existing tract. Timmy Dumas MD Brain MRI 01/11/18 0000 Signed Impressions: Service Date/Time: January 08:45 - CONCLUSION: 1. Focal area of restricted diffusion in the left thalmus characteristic of an acute to subacute infarct. 2. GRE images demonstrate subacute hemorrhage associated with the infarct in the left thalamus. 3. GRE images also demonstrate punctate areas of microhemorrhage noted in the deep right mid parietal lobe, right occipital lobe and bilateral basal ganglia regions, left greater than right. 4. Diffuse bilateral cortical atrophy and chronic white matter changes. Luciano Morales MD Abdomen/Pelvis CT 01/09/18 0000 Signed Impressions: Service Date/Time: Tuesday, January 09, 2018 18:48 - CONCLUSION: 1. There is a sacral decubitus wound/ulcer which extends to the sacrum. Prior MRI demonstrated abnormal sacrum in the inferior aspect of the sacrum and coccyx. There is also presacral edema. These findings are highly suspicious for osteomyelitis. 2. Nonacute findings include 3 mm nonobstructing right renal stone and multi-fibroid uterus. Hu Cuenca MD Sacrum/Coccyx MRI 01/06/18 0000 Signed Impressions: Service Date/Time: Saturday, January 06, 2018 08:30 - CONCLUSION: Large decubitus ulcer posteriorly with not only bony edema and marrow replacement concerning for osteomyelitis but it extends to the presacral fat is well where there is marked enhancement and fluid on the T2-weighted sequences. The coccygeal involvement is at least 3.5 cm in length. Eliud Du MD Abdomen X-Ray 12/13/17 0000 Signed Impressions: Service Date/Time: Wednesday, December 13, 2017 14:17 - CONCLUSION: PEG tube in stomach.. Harry Dumas MD FACR Upper Extremity Ultrasound 11/06/17 0000 Signed Impressions: Service Date/Time: Monday, November 06, 2017 14:17 - CONCLUSION: Normal examination. KLanre Perez MD Pelvis CT 10/13/17 0000 Signed Impressions: Service Date/Time: Friday, October 13, 2017 12:02 - CONCLUSION: 1. Decubitus ulcer with small abscess in the right posterior perineal region measuring 3.1 x 4.6 cm. There is also a small abscess posterior and to the left of the rectum measuring 3.2 x 2.3 cm. Jann Weber MD Neck CTA 04/10/17 0000 Signed Impressions: Service Date/Time: Monday, April 10, 2017 22:28 - CONCLUSION: The internal carotid arteries are normal bilaterally. No significant atherosclerotic disease is noted. Eliud uD MD Head CTA 04/10/17 0000 Signed Impressions: Service Date/Time: Monday, April 10, 2017 22:50 - CONCLUSION: Mild dilatation of the basilar tip without discrete aneurysm. Some narrowing of the left middle cerebral branch after the bifurcation. Prominent left thalamic hemorrhage. Eliud Du MD Objective Remarks GENERAL: Patient lying in CHAIR, appears comfortable -HER VOICE IS very soft- spoken can be heard with my stethoscope only SKIN: Warm and dry. HEAD: Atraumatic. Normocephalic. EYES: Pupils equal and round. No scleral icterus. No injection or drainage. ENT: No nasal bleeding or discharge. Mucous membranes pink and moist. NECK: Trachea midline. No JVD. Supple CARDIOVASCULAR: Regular rate and rhythm. S1 and S2 no S3 or S4 RESPIRATORY: No accessory muscle use. Clear to auscultation. Breath sounds equal bilaterally. GASTROINTESTINAL: Abdomen soft, non-tender, nondistended. Hepatic and splenic margins not palpable. PEG tube in place--Cruz catheter in place MUSCULOSKELETAL: Extremities without clubbing, cyanosis, or edema. No obvious deformities. Has bilateral foot drop and right upper extremity flaccid can move left upper extremity with good supervisor precision optical elements strength NEUROLOGICAL: Awake and alert. No obvious cranial nerve deficits. Normal speech but very very soft. PSYCHIATRIC: Appropriate mood and affect; insight and judgment ABnormal. Procedures Peg Tube placed 05/08/17 (Dr. De Los Santos) Medications and IVs Current Medications Sodium Chloride (NS Flush) 2 ml UNSCH PRN IVF FLUSH AFTER USING IV ACCESS; Start 04/10/17 at 20:00; Stop 04/10/17 at 22:12; Status DC Nicardipine HCl 25 mg/Sodium Chloride 260 ml @ 0 mls/hr TITRATE IV Last administered on 04/10/17t 21:34; Start 04/10/17 at 20:00; Stop 04/10/17 at 22:12; Status DC Sodium Chloride 1,000 ml @ 84 mls/hr [id number] IV Last administered on 04/11/17 07:47; Start 04/10/17 at 22:00; Stop 04/11/17 at 15:41; Status DC Sodium Chloride (NS Flush) 2 ml UNSCH PRN .XX FLUSH AFTER USING IV ACCESS Last administered on 05/01/17 04:49; Start 04/10/17 at 22:00; Stop 05/26/17 at 10:07 ; Status DC Sodium Chloride (NS Flush) 2 ml BID .XX Last administered on 05/26/17 09:54; Start 04/11/17 at 09:00; Stop 05/26/17 at 10:07; Status DC Acetaminophen (Tylenol) 650 mg Q6H PRN PO PAIN 1-10 AND/OR FEVER >101F Last administered on 04/26/17 13:46; Start 04/10/17 at 22:00; Stop 06/16/17 at 10:03 ; Status DC Morphine Sulfate (Morphine Inj) 2 mg Q2H PRN IV PAIN SCALE 6 TO 10 Last administered on 05/25/17 21:09; Start 04/10/17 at 22:00; Stop 05/26/17 at 10:07 ; Status DC Famotidine (Pepcid Inj) 20 mg Q12HR IV PUSH Last administered on 05/04/17 08: 37; Start 04/11/17 at 09:00; Stop 05/04/17 at 14:13; Status DC Ondansetron HCl (Zofran Inj) 4 mg Q6H PRN IV NAUSEA OR VOMITING; Start 04/10/17 at 22:00; Stop 05/26/17 at 10:07; Status DC Metoclopramide HCl (Reglan Inj) 10 mg Q6H PRN IV NAUSEA OR VOMITING; Start 04/10 at 22:00; Stop 05/26/17 at 10:07; Status DC Prochlorperazine (Compazine Supp) 25 mg Q12H PRN RECTAL NAUSEA OR VOMITING; Start 04/10/17 at 22:00; Stop 05/26/17 at 10:07; Status DC Albuterol/ Ipratropium (Duoneb Neb) 1 ampule Q2HR NEB PRN INH WHEEZING; Start 04/10/17 at 22:00; Stop 05/26/17 at 10:07; Status DC Miscellaneous Information 1 Q361D XX Last administered on 04/10/17 22:00; Start 04/10/17 at 22:00; Stop 05/26/17 at 10:07; Status DC Chlorhexidine Gluconate (Chlorhexidine 2% Cloth) Taper DAILY@04 TOP Last administered on 05/21/17 04:00; Start 04/11/17 at 04:00; Stop 05/26/17 at 10:07 ; Status DC Chlorhexidine Gluconate (Chlorhexidine 2% Cloth) 3 pack UNSCH PRN TOP HYGIENIC CARE; Start 04/10/17 at 22:00; Stop 05/26/17 at 10:07; Status DC Senna/Docusate Sodium (Evelyn-Colace) 1 tab BID PO Last administered on 09:20; Start 04/11/17 at 09:00; Stop 06/16/17 at 10:03; Status DC Magnesium Hydroxide (Milk Of Magnesia Liq) 30 ml Q12H PRN PO MILD - MODERATE CONSTIPATION; Start 04/10/17 at 22:00; Stop 05/26/17 at 10:07; Status DC Sennosides (Senokot) 17.2 mg Q12H PRN PO MODERATE - SEVERE CONSTIPATION Last administered on 05/08/17 21:29; Start 04/10/17 at 22:00; Stop 05/26/17 at 10:07; Status DC Bisacodyl (Dulcolax Supp) 10 mg DAILY PRN RECTAL SEVERE CONSITIPATION; Start at 22:00 Lactulose (Lactulose Liq) 30 ml DAILY PRN PO SEVERE CONSITIPATION Last administered on 04/24/17 08:44; Start 04/10/17 at 22:00; Stop 06/16/17 at 10:03 ; Status DC Nicardipine HCl 25 mg/Sodium Chloride 260 ml @ 0 mls/hr TITRATE IV Last administered on 04/14/17 04:35; Start 04/10/17 at 22:15; Stop 04/14/17 at 12:18; Status DC Iohexol (Omnipaque 350 Inj) 70 ml STK-MED ONCE IV Last administered on 22:35; Start 04/10/17 at 22:35; Stop 04/10/17 at 22:36; Status DC Labetalol HCl (Trandate Inj) 20 mg Q4H PRN IV PUSH sbp>160 Last administered on 04/17/17 02:24; Start 04/12/17 at 08:15; Stop 04/25/17 at 18:06; Status DC Hydralazine HCl (Apresoline Inj) 20 mg Q4H PRN IV PUSH sbp>150 Last administered on 05/17/17 20:39; Start 04/12/17 at 08:15; Stop 05/18/17 at 14:44 ; Status DC Amlodipine Besylate (Norvasc) 5 mg DAILY PO Last administered on 04/14/17 08:55 ; Start 04/12/17 at 09:00; Stop 04/15/17 at 06:44; Status DC Metoclopramide HCl (Reglan Inj) 5 mg Q8HR IV PUSH Last administered on 14:02; Start 04/12/17 at 16:00; Stop 05/04/17 at 14:13; Status DC Potassium Chloride 100 ml @ 50 mls/hr Q2H PRN IV For Potassium 2.8 - 3.2 mEq/L ; Start 04/13/17 at 11:45; Stop 04/25/17 at 11:32; Status DC Potassium Chloride 100 ml @ 50 mls/hr Q2H PRN IV For Potassium 2.8 - 3.2 mEq/ L Last administered on 04/14/17 13:06; Start 04/13/17 at 11:45; Stop 04/25/17 at 11:32; Status DC Potassium Bicarb/ Potassium Chloride (K-Lyte Cl Eff) 50 meq UNSCH PRN PO For Potassium 3.3 - 3.5 mEq/L Last administered on 04/19/17 14:03; Start 04/13/17 at 11:45; Stop 04/25/17 at 11:32; Status DC Potassium Chloride 100 ml @ 25 mls/hr UNSCH PRN IV For Potassium 3.3 - 3.5 mEq /L; Start 04/13/17 at 11:45; Stop 04/25/17 at 11:32; Status DC Potassium Chloride 100 ml @ 50 mls/hr Q2H PRN IV For Potassium 3.3 - 3.5 mEq/L ; Start 04/13/17 at 11:45; Stop 04/25/17 at 11:32; Status DC Magnesium Sulfate 4 gm/Sodium Chloride 100 ml @ 50 mls/hr UNSCH PRN IV For Magnesium 0.9 - 1.1 mg/dL; Start 04/13/17 at 11:45; Stop 04/25/17 at 11:32; Status DC Magnesium Oxide (Mag-Ox) 800 mg UNSCH PRN PO For Magnesium 1.2 - 1.6 mg/dL; Start 04/13/17 at 11:45; Stop 04/25/17 at 11:32; Status DC Magnesium Sulfate 2 gm/Sodium Chloride 100 ml @ 50 mls/hr UNSCH PRN IV For Magnesium 1.2 - 1.6 mg/dL; Start 04/13/17 at 11:45; Stop 04/25/17 at 11:32; Status DC Potassium Phosphate (K-Phos) 2,000 mg Q4H PRN PO For Phosphorus < 2.5 mg/dL; Start 04/13/17 at 11:45; Stop 04/25/17 at 11:32; Status DC Sodium Phosphate 30 mmol/Sodium Chloride 250 ml @ 42 mls/hr UNSCH PRN IV For Phosphorus < 2.5 mg/dL; Start 04/13/17 at 11:45; Stop 04/25/17 at 11:32; Status DC Potassium Phosphate (K-Phos) 2,000 mg UNSCH PRN PO/TUBE SEE LABEL COMMENTS; Start 04/13/17 at 11:45; Stop 04/25/17 at 11:32; Status DC Potassium Phosphate 30 mmol/ Sodium Chloride 260 ml @ 42 mls/hr UNSCH PRN IV SEE LABEL COMMENTS; Start 04/13/17 at 11:45; Stop 04/25/17 at 11:32; Status DC Metoprolol Tartrate (Lopressor) 25 mg Q8HR PO Last administered on 04/14/17t 05: 40; Start 04/13/17 at 14:00; Stop 04/14/17 at 12:18; Status DC Hydralazine HCl (Apresoline) 50 mg Q8H PO Last administered on 04/14/17 03:23; Start 04/13/17 at 12:00; Stop 04/14/17 at 09:23; Status DC Hydralazine HCl (Apresoline) 100 mg Q8H PO Last administered on 04/14/17 11:25 ; Start 04/14/17 at 12:00; Stop 04/14/17 at 19:47; Status DC Metoprolol Tartrate (Lopressor) 50 mg Q8HR PO Last administered on 04/24/17 05 :27; Start 04/14/17 at 14:00; Stop 04/24/17 at 09:28; Status DC Hydralazine HCl (Apresoline Inj) 20 mg ONCE ONCE IV PUSH Last administered on 04/14/17 17:42; Start 04/14/17 at 17:15; Stop 04/14/17 at 17:32; Status DC Labetalol HCl (Trandate Inj) 10 mg ONCE ONCE IV PUSH Last administered on 17:42; Start 04/14/17 at 17:15; Stop 04/14/17 at 17:32; Status DC Clonidine (Catapres) 0.3 mg ONCE ONCE PO Last administered on 04/14/17 17:50; Start 04/14/17 at 17:15; Stop 04/14/17 at 17:32; Status DC Clonidine (Catapres) 0.2 mg Q8HR PO ; Start 04/14/17 at 22:00; Stop 04/14/17 at 22 :00; Status DC Clonidine (Catapres) 0.3 mg Q8HR PO Last administered on 04/26/17 05:55; Start 04/14/17 at 22:00; Stop 04/26/17 at 14:39; Status DC Hydralazine HCl (Apresoline) 100 mg Q6HR PO Last administered on 04/15/17 10: 39; Start 04/15/17 at 00:00; Stop 04/15/17 at 13:10; Status DC Amlodipine Besylate (Norvasc) 10 mg DAILY PO Last administered on 06/12/17 07: 39; Start 04/14/17 at 19:45; Stop 06/12/17 at 07:56; Status DC Enalaprilat (Vasotec Inj) 1.25 mg Q6H PRN IV PUSH SBP>160, DBP>90 Last administered on 05/13/17 01:22; Start 04/15/17 at 01:15; Stop 05/26/17 at 10:07 ; Status DC Nitroglycerin (Nitroglycerin 2% Oint) 2 inch Q6HR PRN TOPICAL SBP>160, DBP>90 Last administered on 04/16/17 12:34; Start 04/15/17 at 06:00; Stop 05/26/17 at 10:07; Status DC Hydralazine HCl (Apresoline) 100 mg Q8HR PO Last administered on 04/26/17 05: 55; Start 04/15/17 at 14:00; Stop 04/26/17 at 14:39; Status DC Lisinopril (Prinivil) 20 mg DAILY PO Last administered on 04/16/17 08:32; Start 04/15/17 at 13:30; Stop 04/16/17 at 14:58; Status DC Lisinopril (Prinivil) 20 mg ONCE ONCE PO Last administered on 04/16/17 15:27 ; Start 04/16/17 at 15:00; Stop 04/16/17 at 15:03; Status DC Lisinopril (Prinivil) 40 mg BID PO Last administered on 04/20/17 09:09; Start 04/16/17 at 21:00; Stop 04/20/17 at 16:42; Status DC Hydrochlorothiazide (Hydrodiuril) 25 mg DAILY PO Last administered on 08:59; Start 04/17/17 at 17:45; Stop 04/18/17 at 16:28; Status DC Hydrochlorothiazide (Hydrodiuril) 25 mg ONCE ONCE PO Last administered on 04/18 16:51; Start 04/18/17 at 16:30; Stop 04/18/17 at 16:32; Status DC Hydrochlorothiazide (Hydrodiuril) 50 mg DAILY PO Last administered on 08:50; Start 04/19/17 at 09:00; Stop 04/25/17 at 18:06; Status DC Lisinopril (Prinivil) 30 mg BID PO Last administered on 04/25/17 08:50; Start 04/20/17 at 21:00; Stop 04/25/17 at 18:06; Status DC Miscellaneous (Pill Splitter) 1 ea UNSCH PRN OTHER SEE LABEL COMMENTS; Start at 17:15; Stop 10/18/17 at 09:37; Status DC Ceftriaxone Sodium 1000 mg/ Sodium Chloride 100 ml @ 200 mls/hr HS IV Last administered on 04/29/17 22:04; Start 04/22/17 at 21:30; Stop 04/30/17 at 12:37 ; Status DC Metoprolol Tartrate (Lopressor) 50 mg BID PO Last administered on 05/26/17 09: 54; Start 04/24/17 at 21:00; Stop 05/26/17 at 10:12; Status DC Lisinopril (Prinivil) 20 mg DAILY PO Last administered on 04/27/17 09:52; Start 04/26/17 at 09:00; Stop 04/28/17 at 00:21; Status DC Clonidine (Catapres) 0.2 mg Q8HR PO Last administered on 05/26/17 05:57; Start 04/26/17 at 22:00; Stop 05/26/17 at 10:12; Status DC Hydralazine HCl (Apresoline) 50 mg Q8HR PO Last administered on 04/27/17 12:45 ; Start 04/26/17 at 22:00; Stop 04/27/17 at 15:31; Status DC Hydralazine HCl (Apresoline) 100 mg Q8HR PO Last administered on 06/10/17 06:18 ; Start 04/27/17 at 22:00; Stop 06/10/17 at 12:03; Status DC Lisinopril (Prinivil) 40 mg DAILY PO Last administered on 06/16/17 09:20; Start 04/28/17 at 09:00; Stop 06/16/17 at 10:03; Status DC Famotidine (Pepcid) 20 mg BID NG Last administered on 05/09/17 09:36; Start at 21:00; Stop 05/09/17 at 12:49; Status DC Lactic Acid (Lac-Hydrin 12% Lotion) 1 applic BID TOPICAL Last administered on 09:58; Start 05/04/17 at 14:00 Cefazolin Sodium 1000 mg/Sodium Chloride 100 ml @ 200 mls/hr SINGLE NEEDLE OPERATOR IV ; Start 05/06/17 at 10:30; Stop 05/09/17 at 10:29; Status DC Cefazolin Sodium (Ancef Inj) 1,000 mg STK-MED ONCE IV Last administered on 15:00; Start 05/08/17 at 15:00; Stop 05/08/17 at 15:08; Status DC Propofol (Diprivan 200 Mg/20 ml Inj) 150 mg STK-MED ONCE IV PUSH ; Start at 15:27; Stop 05/08/17 at 15:45; Status DC Lansoprazole (Prevacid Odt) 30 mg DAILY G-TUBE Last administered on 01/29/18 09:57; Start 05/10/17 at 09:00 Nystatin (Mycostatin Liq) 5 ml QID SWISH-SWAL Last administered on 05/22/17 09:36; Start 05/14/17 at 13:00; Stop 05/22/17 at 11:19; Status DC Hydralazine HCl (Apresoline) 25 mg Q4HR PRN PEG for sbp greater than 150 Last administered on 01/23/18 22:03; Start 05/18/17 at 14:45 Clonidine (Catapres) 0.1 mg Q6H PRN PO for SBP greater than 170 Last administered on 05/22/17 02:48; Start 05/21/17 at 07:30; Stop 05/26/17 at 10:12 ; Status DC Nystatin (Mycostatin Liq) 5 ml QID SWISH-SWAL Last administered on 05/28/17 09:43; Start 05/23/17 at 13:00; Stop 05/28/17 at 10:02; Status DC Ondansetron HCl (Zofran Liq) 4 mg Q6H PRN PEG NAUSEA OR VOMITING Last administered on 01/27/18 09:37; Start 05/26/17 at 10:00 Metoprolol Tartrate (Lopressor) 75 mg BID PO Last administered on 05/28/17 09: 43; Start 05/26/17 at 21:00; Stop 05/28/17 at 09:58; Status DC Clonidine (Catapres-Tts 0.2 Mg Patch.7d) 1 patch Q7D T-DERMAL Last administered on 06/02/17 11:27; Start 05/26/17 at 12:00; Stop 06/06/17 at 12:47 ; Status DC Miscellaneous Information 1 Q7D T-DERMAL Last administered on 06/02/17 11:28; Start 06/02/17 at 12:00; Stop 06/06/17 at 13:31; Status DC Metoprolol Tartrate (Lopressor) 100 mg BID PO Last administered on 06/16/17 09 :20; Start 05/28/17 at 21:00; Stop 06/16/17 at 10:03; Status DC Fluconazole (Diflucan) 200 mg DAILY PO Last administered on 06/03/17 08:44; Start 05/28/17 at 11:00; Stop 06/04/17 at 08:59; Status DC Levofloxacin (Levaquin Liq) 750 mg Q24H PEG ; Start 05/29/17 at 11:00; Stop at 15:05; Status DC Levofloxacin (Levaquin Liq) 750 mg DAILY@16 PEG Last administered on 16:20; Start 05/29/17 at 16:00; Stop 06/04/17 at 16:01; Status DC Sodium Chloride 500 ml @ 500 mls/hr BOLUS ONCE IV Last administered on 15:43; Start 06/01/17 at 11:30; Stop 06/01/17 at 12:29; Status DC Sodium Chloride 1,000 ml @ 100 mls/hr Q10H IV Last administered on 06/03/17 06:17; Start 06/02/17 at 11:15; Stop 06/03/17 at 10:16; Status DC Clonidine (Catapres-Tts 0.3 Mg Patch.7d) 1 patch Q7D T-DERMAL Last administered on 12/19/17at 17:32; Start 06/06/17 at 15:00; Stop 12/24/17 at 09:54 ; Status DC Miscellaneous Information 1 Q7D T-DERMAL Last administered on 12/19/17at 15:00; Start 06/06/17 at 15:00; Stop 12/24/17 at 09:54; Status DC Hydralazine HCl (Apresoline) 100 mg Q6HR PO Last administered on 06/16/17 06: 20; Start 06/10/17 at 18:00; Stop 06/16/17 at 10:03; Status DC Nifedipine (Procardia Xl) 60 mg DAILY PO Last administered on 06/15/17 10:04; Start 06/12/17 at 09:00; Stop 06/16/17 at 10:03; Status DC Acetaminophen (Tylenol) 650 mg Q6H PRN PEG PAIN 1-10 AND/OR FEVER >101F Last administered on 10/17/17 19:29; Start 06/16/17 at 16:00; Status Future Hold Senna/Docusate Sodium (Evelyn-Colace) 1 tab BID PEG Last administered on 09:42; Start 06/16/17 at 21:00; Stop 06/28/17 at 10:38; Status DC Hydralazine HCl (Apresoline) 100 mg Q6HR PEG Last administered on 08/17/17 22 :43; Start 06/16/17 at 12:00; Stop 08/18/17 at 07:50; Status DC Lactulose (Lactulose Liq) 30 ml DAILY PRN PEG SEVERE CONSITIPATION; Start 06/16 at 10:00; Stop 08/17/17 at 08:28; Status DC Lisinopril (Prinivil) 40 mg DAILY PEG Last administered on 08/16/17 08:04; Start 06/17/17 at 09:00; Stop 08/18/17 at 07:50; Status DC Metoprolol Tartrate (Lopressor) 100 mg BID PEG Last administered on 11/21/17at 21:41; Start 06/16/17 at 21:00; Stop 11/23/17 at 11:24; Status DC Nifedipine (Procardia) 20 mg Q8HR PEG Last administered on 06/20/17 05:41; Start 06/16/17 at 14:00; Stop 06/20/17 at 14:35; Status DC Nifedipine (Procardia) 30 mg Q8HR .XX Last administered on 06/22/17 13:13; Start 06/20/17 at 22:00; Stop 06/22/17 at 13:14; Status DC Nifedipine (Procardia) 30 mg Q6HR .XX Last administered on 06/26/17 06:32; Start 06/22/17 at 18:00; Stop 06/26/17 at 11:22; Status DC Nifedipine (Procardia) 40 mg Q6HR PEG Last administered on 12/17/17at 11:55; Start 06/26/17 at 12:00; Stop 12/17/17 at 18:00; Status DC Sennosides (Senna Liq) 8.8 mg DAILY PEG Last administered on 10/17/17 10:02 ; Start 06/29/17 at 09:00; Status Future Hold Hydrochlorothiazide (Hydrodiuril) 25 mg DAILY PO Last administered on 07/07/17 08:49; Start 07/01/17 at 12:00; Stop 07/07/17 at 11:21; Status DC Hydrochlorothiazide (Hydrodiuril) 25 mg BID@ PEG Last administered on 07/21 17:17; Start 07/07/17 at 18:00; Stop 07/28/17 at 15:04; Status DC Potassium Bicarb/ Potassium Chloride (K-Lyte Cl Eff) 25 meq DAILY PEG Last administered on 07/22/17 09:54; Start 07/07/17 at 11:30; Stop 07/28/17 at 15:04 ; Status DC Hydrochlorothiazide (Hydrodiuril) 25 mg DAILY PO Last administered on 08:04; Start 08/04/17 at 12:30; Stop 08/18/17 at 07:50; Status DC Nystatin (Mycostatin Liq) 5 ml QID OTHER Last administered on 08/21/17 17:54 ; Start 08/13/17 at 18:00; Stop 08/21/17 at 18:00; Status DC Polyethylene Glycol (Miralax) 17 gm DAILY PRN PO severe constipation Last administered on 08/30/17 23:22; Start 08/17/17 at 08:30; Stop 12/09/17 at 09: 10; Status DC Hydralazine HCl (Apresoline) 100 mg Q8HR PEG Last administered on 10/14/17at 06 :38; Start 08/18/17 at 14:00; Stop 08/19/17 at 07:53; Status DC Lisinopril (Prinivil) 20 mg BID PEG ; Start 08/18/17 at 09:00; Stop 08/19/17 at 07:53; Status DC Hydralazine HCl (Apresoline) 50 mg Q6HR PEG Last administered on 12/10/17at 23:28 ; Start 08/19/17 at 12:00; Stop 12/11/17 at 04:19; Status DC Lisinopril (Prinivil) 10 mg BID PEG Last administered on 11/15/17at 08:28; Start 08/19/17 at 09:00; Stop 11/15/17 at 10:41; Status DC Hydrochlorothiazide (Hydrodiuril) 25 mg DAILY PO Last administered on 17:12; Start 08/20/17 at 15:00; Stop 08/21/17 at 08:35; Status DC Nystatin (Mycostatin Liq) 5 ml QID OTHER Last administered on 09/02/17 21:12 ; Start 08/23/17 at 18:00; Stop 09/03/17 at 09:51; Status DC Hydrochlorothiazide (Hydrodiuril) 25 mg DAILY PO Last administered on 10:34; Start 08/29/17 at 11:15; Stop 09/03/17 at 09:51; Status DC Hydrochlorothiazide (Microzide) 12.5 mg DAILY PO Last administered on 09:03; Start 09/04/17 at 09:00; Stop 09/04/17 at 13:23; Status DC Nystatin (Mycostatin Liq) 5 ml QID SWISH-SWAL Last administered on 10/17/17 14:28; Start 09/07/17 at 13:00; Stop 10/17/17 at 15:32; Status DC Hydrochlorothiazide (Microzide) 12.5 mg DAILY PO Last administered on 08:12; Start 09/15/17 at 11:45; Stop 09/27/17 at 09:00; Status DC Hydrochlorothiazide (Hydrodiuril) 25 mg DAILY PO Last administered on at 10:27; Start 09/27/17 at 09:15; Stop 01/19/18 at 09:03; Status DC Vancomycin HCl 1000 mg/Sodium Chloride 250 ml @ 250 mls/hr ONCE ONCE IV Last administered on 10/10/17 11:28; Start 10/10/17 at 10:00; Stop 10/10/17 at 10:59 ; Status DC Pharmacy Profile Note 0 ml @ 0 mls/hr UNSCH OTHER ; Start 10/10/17 at 09:00; Stop 10/17/17 at 15:26; Status DC Potassium Bicarb/ Potassium Chloride (K-Lyte Cl Eff) 50 meq ONCE ONCE PEG Last administered on 10/10/17 10:14; Start 10/10/17 at 09:30; Stop 10/10/17 at 09:31; Status DC Vancomycin HCl 1250 mg/Sodium Chloride 262.5 ml @ 250 mls/hr Q12H IV Last administered on 10/11/17 18:08; Start 10/10/17 at 18:00; Stop 10/11/17 at 21:55 ; Status DC Miscellaneous Information SPECIFIC LAB TO BE DRAWN:VANCO TROUGH DATE TO BE DR..Lanre ONCE ONCE .XX Last administered on 10/11/17 17:20; Start 10/11/17 at 17 :45; Stop 10/11/17 at 17:46; Status DC Piperacillin Sod/ Tazobactam Sod 50 ml @ 100 mls/hr Q6HR IV ; Start 10/10/17 at 12:00; Stop 10/10/17 at 14:07; Status DC Piperacillin Sod/ Tazobactam Sod 50 ml @ 100 mls/hr Q6HR IV Last administered on 10/22/17 05:38; Start 10/10/17 at 15:00; Stop 10/22/17 at 08:29; Status DC Vancomycin HCl 1000 mg/Sodium Chloride 250 ml @ 250 mls/hr Q12H IV Last administered on 10/14/17 06:03; Start 10/12/17 at 06:00; Stop 10/14/17 at 13:01 ; Status DC Miscellaneous Information SPECIFIC LAB TO BE .Lanre ONCE ONCE .XX Last administered on 10/14/17 05:45; Start 10/14/17 at 05:45; Stop 10/14/17 at 05:46 ; Status DC Collagenase (Santyl Oint) 1 applic BID TOPICAL Last administered on 10/18/17 21:00; Start 10/12/17 at 09:00; Stop 10/19/17 at 08:47; Status DC Potassium Chloride/Sodium Chloride 1,000 ml @ 100 mls/hr Q10H IV Last administered on 10/16/17 20:57; Start 10/13/17 at 09:00; Stop 10/17/17 at 04: 36; Status DC Fluconazole/ Sodium Chloride 100 ml @ 100 mls/hr Q24H IV Last administered on 10/15/17 12:49; Start 10/13/17 at 12:00; Stop 10/16/17 at 07:19; Status DC Iohexol (Omnipaque 350 Inj) 85 ml STK-MED ONCE IVCONTRAST Last administered on 10/13/17 12:29; Start 10/13/17 at 12:29; Stop 10/13/17 at 12:30; Status DC Potassium Chloride 100 ml @ 50 mls/hr Q2H IV Last administered on 10/14/17 12 :51; Start 10/14/17 at 08:30; Stop 10/14/17 at 12:29; Status DC Potassium Bicarb/ Potassium Chloride (K-Lyte Cl Eff) 50 meq ONCE ONCE PEG Last administered on 10/14/17 10:48; Start 10/14/17 at 08:15; Stop 10/14/17 at 08:17; Status DC Vancomycin HCl 1250 mg/Sodium Chloride 262.5 ml @ 250 mls/hr Q12H IV Last administered on 10/14/17 18:20; Start 10/14/17 at 18:00; Stop 10/15/17 at 09: 15; Status DC Miscellaneous Information SPECIFIC LAB TO BE DRAWN:VANCO TROUGH DATE TO BE DR... ONCE ONCE .XX ; Start 10/16/17 at 05:45; Stop 10/16/17 at 05:46; Status Cancel Potassium Bicarb/ Potassium Chloride (K-Lyte Cl Eff) 50 meq ONCE ONCE PO Last administered on 10/15/17 11:45; Start 10/15/17 at 10:00; Stop 10/15/17 at 10:01; Status DC Vancomycin HCl 1250 mg/Sodium Chloride 262.5 ml @ 250 mls/hr Q12H IV Last administered on 10/17/17 10:01; Start 10/15/17 at 10:00; Stop 10/17/17 at 15 :26; Status DC Miscellaneous Information SPECIFIC LAB TO BE DRAWN:VANCOMYCIN TROUGH DATE TO... ONCE ONCE .XX Last administered on 10/16/17 21:45; Start 10/16/17 at 21:45 ; Stop 10/16/17 at 21:46; Status DC Ciprofloxacin (Cipro) 500 mg Q12HR PEG Last administered on 10/18/17 21:00; Start 10/16/17 at 09:00; Stop 10/19/17 at 09:14; Status DC Potassium Chloride/Sodium Chloride 1,000 ml @ 100 mls/hr Q10H IV Last administered on 10/17/17 10:02; Start 10/17/17 at 08:00; Stop 10/17/17 at 18 :32; Status DC Hydromorphone HCl (Dilaudid Pf Inj) 2 mg ONCE ONCE IV PUSH Last administered on 10/17/17 12:50; Start 10/17/17 at 12:15; Stop 10/17/17 at 12:16; Status DC Sodium Hypochlorite (Dakin'S 0.5% Soln) 500 ml ONCE ONCE TOPICAL Last administered on 10/17/17 14:28; Start 10/17/17 at 13:30; Stop 10/17/17 at 13 :35; Status DC Sodium Hypochlorite (Dakin'S 0.25% Soln) 50 ml BID TOPICAL Last administered on 10/18/17 21:00; Start 10/17/17 at 21:00; Stop 10/19/17 at 08:47; Status DC Morphine Sulfate (Morphine Inj) 2 mg BID PRN IV PUSH painful dressing changes Last administered on 10/20/17 09:23; Start 10/17/17 at 15:00; Stop 10/20/17 at 16:23; Status DC Benztropine Mesylate (Cogentin Inj) 0.5 mg HS IV PUSH ; Start 10/17/17 at 21:00 ; Stop 10/17/17 at 21:00; Status DC Naloxone HCl (Narcan Inj) 0.4 mg UNSCH X1 PRN IV PUSH RESP DEPRESSION OR HYPOTENSION; Start 10/17/17 at 17:30; Stop 10/20/17 at 17:29; Status DC Baclofen (Lioresal) 5 mg ONCE ONCE PO Last administered on 10/17/17 17:45; Start 10/17/17 at 17:45; Stop 10/17/17 at 17:46; Status DC Miscellaneous (Pill Splitter) 1 ea UNSCH PRN OTHER SEE LABEL COMMENTS Last administered on 12/08/17 20:45; Start 10/17/17 at 17:45 Sodium Chloride 1,000 ml @ 42 mls/hr [id number] IV Last administered on 06:00; Start 10/18/17 at 10:00; Stop 10/24/17 at 15:36; Status DC Collagenase (Santyl Oint) 1 applic BID TOPICAL Last administered on 11/14/17 07 :57; Start 10/19/17 at 10:00; Stop 11/17/17 at 09:01; Status DC Water (Free Water) 150 ml Q6HR G-TUBE Last administered on 01/29/18 13:48; Start 10/19/17 at 12:00 Morphine Sulfate (Morphine Inj) 2 mg BID PRN IV PUSH painful dressing changes Last administered on 10/22/17 09:40; Start 10/20/17 at 16:30; Stop 10/23/17 at 17:45; Status DC Sodium Chloride 500 ml @ 50 mls/hr Q10H IV ; Start 10/20/17 at 17:30; Stop at 17:56; Status DC Sodium Chloride 500 ml @ 1,000 mls/hr BOLUS ONCE IV Last administered on 18:00; Start 10/20/17 at 18:00; Stop 10/20/17 at 18:29; Status DC Diphenhydramine HCl (Benadryl Liq) 50 mg ONCE ONCE PO Last administered on 01:05; Start 10/22/17 at 00:15; Stop 10/22/17 at 00:18; Status DC Piperacillin Sod/ Tazobactam Sod 3.375 gm/Sodium Chloride 100 ml @ 100 mls/hr Q6HR IV Last administered on 10/23/17 17:24; Start 10/22/17 at 12:00; Stop 10/23/17 at 17:45; Status DC Diphenhydramine HCl (Benadryl Inj) 25 mg ONCE ONCE IM Last administered on 17:54; Start 10/23/17 at 17:15; Stop 10/23/17 at 17:40; Status DC Potassium Bicarb/ Potassium Chloride (K-Lyte Cl Eff) 25 meq ONCE ONCE PO ; Start 10/23/17 at 17:45; Stop 10/23/17 at 17:57; Status DC Cefepime HCl 1000 mg/Sodium Chloride 100 ml @ 200 mls/hr Q12H IV Last administered on 11/10/17 09:06; Start 10/23/17 at 20:00; Stop 11/10/17 at 19:59 ; Status DC Levofloxacin/ Dextrose 100 ml @ 100 mls/hr Q24H IV Last administered on 17:56; Start 10/24/17 at 18:00; Stop 11/10/17 at 17:59; Status DC Ketorolac Tromethamine (Toradol Inj) 15 mg DAILY IV PUSH Last administered on 10/28/17 13:45; Start 10/24/17 at 09:00; Stop 10/29/17 at 08:59; Status DC Prednisone (predniSONE LIQ) 10 mg BID PO ; Start 10/23/17 at 21:00; Stop 10/23 at 21:51; Status DC Potassium Bicarb/ Potassium Chloride (K-Lyte Cl Eff) 25 meq ONCE ONCE PEG Last administered on 10/23/17 18:02; Start 10/23/17 at 18:00; Stop 10/23/17 at 18:01; Status DC Prednisone (predniSONE LIQ) 10 mg BID G-TUBE Last administered on 10/24/17 09 :34; Start 10/24/17 at 09:00; Stop 10/24/17 at 15:36; Status DC Potassium Chloride/Sodium Chloride 1,000 ml @ 42 mls/hr [id number] IV Last administered on 10/25/17 11:37; Start 10/24/17 at 16:00; Stop 10/25/17 at 13 :32; Status DC Lisinopril (Prinivil) 10 mg BID PEG Last administered on 11/21/17at 21:41; Start 11/15/17 at 21:00; Stop 11/22/17 at 08:58; Status DC Sodium Chloride (NS Flush) 2 ml UNSCH PRN IV FLUSH FLUSH AFTER USING IV ACCESS Last administered on 01/04/18at 08:21; Start 11/17/17 at 10:15; Stop 01/19/18 at 09:03; Status DC Lisinopril (Prinivil) 5 mg BID PEG ; Start 11/22/17 at 09:15; Stop 11/23/17 at 11:24; Status DC Metoprolol Tartrate (Lopressor) 50 mg BID PEG Last administered on 11/23/17at 20 :50; Start 11/23/17 at 21:00; Stop 11/24/17 at 12:59; Status DC Metoprolol Tartrate (Lopressor) 25 mg BID PEG Last administered on 01/29/18at 09 :57; Start 11/24/17 at 21:00 Ceftriaxone Sodium 1000 mg/ Sodium Chloride 100 ml @ 200 mls/hr Q24H IV Last administered on 12/24/17at 08:43; Start 12/09/17 at 09:00; Stop 12/24/17 at 09:54 ; Status DC Polyethylene Glycol (Miralax) 17 gm DAILY PO Last administered on 12/14/17at 09: 08; Start 12/09/17 at 09:15; Stop 12/16/17 at 17:49; Status DC Hydralazine HCl (Apresoline) 50 mg Q6HR PEG Last administered on 12/12/17at 17:41 ; Start 12/11/17 at 06:00; Stop 12/12/17 at 19:14; Status DC Hydralazine HCl (Apresoline) 50 mg Q8HR PEG Last administered on 01/29/18at 13: 48; Start 12/12/17 at 22:00 Potassium Chloride/Dextrose/ Sod Cl 1,000 ml @ 84 mls/hr [id number] IV Last administered on 12/12/17at 20:40; Start 12/12/17 at 19:15; Stop 12/13/17 at 12:00; Status DC Diatrizoate Meglum/ Diatrizoate Sod ( Gastroview Liq) 120 ml STK-MED ONCE PEG ; Start 12/13/17 at 15:17; Stop 12/13/17 at 15:18; Status DC Potassium Bicarb/ Potassium Chloride (K-Lyte Cl Eff) 25 meq ONCE ONCE PO Last administered on 12/16/17at 09:56; Start 12/16/17 at 10:00; Stop 12/16/17 at 10:24; Status DC Polyethylene Glycol (Miralax) 17 gm DAILY PRN PO SEVERE CONSTIPATION; Start 08/23 at 18:00; Stop 01/19/18 at 09:02; Status DC Nifedipine (Procardia) 40 mg Q6HR .XX Last administered on 12/27/17at 05:22; Start 12/17/17 at 18:00; Stop 12/27/17 at 09:37; Status DC Oxycodone/ Acetaminophen (Percocet 5-325 Mg) 1 tab Q6H PRN PO PAIN 3 TO 5 Last administered on 01/17/18at 16:35; Start 12/22/17 at 15:00; Stop 01/19/18 at 09:02; Status DC Oxycodone/ Acetaminophen (Percocet 10-325 Mg) 1 tab Q6H PRN PO PAIN 6-10 Last administered on 01/19/18at 05:38; Start 12/22/17 at 15:00; Stop 01/19/18 at 09:02 ; Status DC Clonidine (Catapres-Tts 0.2 Mg Patch.7d) 1 patch Q7D T-DERMAL Last administered on 12/24/17at 12:34; Start 12/24/17 at 11:00; Stop 12/26/17 at 17:20 ; Status DC Miscellaneous Information 1 Q7D T-DERMAL ; Start 12/31/17 at 11:00; Stop at 11:00; Status DC Albuterol/ Ipratropium (Duoneb Neb) 1 ampule STK-MED ONCE .ROUTE ; Start at 18:07; Stop 12/24/17 at 18:08; Status DC Collagenase (Santyl Oint) 1 applic DAILY TOPICAL Last administered on at 09:57; Start 12/25/17 at 17:00 Sodium Hypochlorite (Dakin'S 0.5% Soln) 500 ml DAILY TOPICAL ; Start 12/25/17 at 17:00; Stop 12/25/17 at 17:51; Status DC Sodium Hypochlorite (Dakin'S 0.25% Soln) 500 ml DAILY TOPICAL Last administered on 01/05/18at 09:35; Start 12/25/17 at 17:30; Stop 01/05/18 at 15:29; Status DC Clonidine (Catapres-Tts 0.1mg Patch.7d) 1 patch Q7D T-DERMAL Last administered on 12/26/17at 18:09; Start 12/26/17 at 18:00; Stop 12/28/17 at 23:53; Status DC Miscellaneous Information 1 Q7D T-DERMAL Last administered on 12/26/17at 18:00; Start 12/26/17 at 18:00; Stop 12/28/17 at 23:53; Status DC Nifedipine (Procardia) 40 mg Q6HR .XX Last administered on 01/19/18at 05:37; Start 12/27/17 at 12:00; Stop 01/19/18 at 09:00; Status DC Levofloxacin/ Dextrose 100 ml @ 100 mls/hr Q24H IV Last administered on at 20:07; Start 01/01/18 at 20:00; Stop 01/02/18 at 13:32; Status DC Levofloxacin (Levaquin) 750 mg DAILY PO Last administered on 01/02/18at 20:43; Start 01/02/18 at 20:00; Stop 01/03/18 at 08:11; Status DC Escitalopram Oxalate (Lexapro) 10 mg DAILY PEG Last administered on 01/29/18at 09:57; Start 01/02/18 at 17:15 Levofloxacin (Levaquin) 750 mg Q24H PEG ; Start 01/03/18 at 08:15; Stop at 08:15; Status DC Levofloxacin (Levaquin) 750 mg Q24H PEG Last administered on 01/16/18at 21:33; Start 01/03/18 at 20:00; Stop 01/16/18 at 21:00; Status DC Gadodiamide (Omniscan Pf Inj) 10 ml STK-MED ONCE IVCONTRAST Last administered on 01/06/18at 09:20; Start 01/06/18 at 09:20; Stop 01/06/18 at 09:21; Status DC Metronidazole (Flagyl) 500 mg Q8H PO Last administered on 01/19/18at 02:26; Start 01/09/18 at 10:00; Stop 01/19/18 at 08:59; Status DC Diatrizoate Meglum/ Diatrizoate Sod (Md Rae Liq) 18 ml ONCE ONCE PO Last administered on 01/09/18at 12:26; Start 01/09/18 at 09:20; Stop 01/09/18 at 10: 26; Status DC Potassium Bicarb/ Potassium Chloride (K-Lyte Cl Eff) 25 meq ONCE ONCE PO Last administered on 01/09/18at 17:42; Start 01/09/18 at 16:00; Stop 01/09/18 at 16: 01; Status DC Iohexol (Omnipaque 350 Inj) 74 ml STK-MED ONCE IVCONTRAST Last administered on 01/09/18at 19:04; Start 01/09/18 at 19:03; Stop 01/09/18 at 19:04; Status DC Gadodiamide (Omniscan Pf Inj) 10 ml STK-MED ONCE IVCONTRAST Last administered on 01/11/18at 09:11; Start 01/11/18 at 09:11; Stop 01/11/18 at 09:12; Status DC Heparin Sodium (Porcine) (Heparin Inj) 5,000 units Q12HR SQ Last administered on 01/29/18at 09:57; Start 01/13/18 at 09:00 Lactobacillus Acidophilus (Lactinex Pkt) 1 gm TID PO Last administered on at 16:35; Start 01/12/18 at 18:00; Stop 01/19/18 at 08:59; Status DC Sodium Hypochlorite (Dakin'S 0.125% Soln) 50 ml DAILY TOPICAL Last administered on 01/29/18at 09:58; Start 01/13/18 at 20:00 Iohexol (Omnipaque 350 Inj) 15 ml STK-MED ONCE G-TUBE Last administered on 01/18at 17:42; Start 01/18/18 at 17:42; Stop 01/18/18 at 17:43; Status DC Lactobacillus Acidophilus (Lactinex Pkt) 1 gm TID PEG Last administered on 01/19 16:52; Start 01/19/18 at 09:00; Stop 01/19/18 at 16:58; Status DC Metronidazole (Flagyl) 500 mg Q8H PEG Last administered on 01/29/18at 09:57; Start 01/19/18 at 09:00; Stop 02/05/18 at 23:00 Nifedipine (Procardia) 40 mg Q6HR PEG Last administered on 01/24/18at 17:14; Start 01/19/18 at 12:00; Stop 01/24/18 at 23:03; Status DC Oxycodone/ Acetaminophen (Percocet 5-325 Mg) 1 tab Q6H PRN PEG PAIN 3 TO 5 Last administered on 01/24/18 09:21; Start 01/19/18 at 09:15; Stop 01/25/18 at 15:39; Status DC Oxycodone/ Acetaminophen (Percocet 10-325 Mg) 1 tab Q6H PRN PEG PAIN 6-10 Last administered on 01/21/18at 05:34; Start 01/19/18 at 09:15; Stop 01/25/18 at 15:39 ; Status DC Polyethylene Glycol (Miralax) 17 gm DAILY PRN PEG SEVERE CONSTIPATION; Start at 09:15 Hydrochlorothiazide (Hydrodiuril) 25 mg DAILY PEG Last administered on 09:57; Start 01/19/18 at 09:03 Levofloxacin (Levaquin) 750 mg DAILY PO Last administered on 01/19/18at 16:51; Start 01/19/18 at 12:00; Stop 01/19/18 at 17:01; Status DC Fluconazole (Diflucan) 100 mg DAILY PO ; Start 01/20/18 at 09:00; Stop 01/20/18 at 09:00; Status DC Fluconazole (Diflucan) 200 mg ONCE ONCE PO Last administered on 01/19/18at 16: 51; Start 01/19/18 at 15:00; Stop 01/19/18 at 15:01; Status DC Lactobacillus Acidophilus (Lactinex) 1 tab TID PEG Last administered on at 13:48; Start 01/19/18 at 18:00 Fluconazole (Diflucan) 100 mg DAILY PEG Last administered on 01/29/18at 09:57; Start 01/20/18 at 09:00; Stop 02/02/18 at 08:59 Levofloxacin (Levaquin) 750 mg DAILY@1200 PEG Last administered on 01/29/18at 13 :48; Start 01/20/18 at 12:00; Stop 02/21/18 at 11:59 Sodium Chloride 1,000 ml @ 50 mls/hr Q20H IV Last administered on 01/26/18at 09 :46; Start 01/20/18 at 09:00; Stop 01/26/18 at 20:43; Status DC Nifedipine (Procardia) 40 mg Q8HR PEG Last administered on 01/29/18at 13:48; Start 01/25/18 at 06:00 Potassium Chloride 100 ml @ 100 mls/hr Q1H IV Last administered on 01/25/18at 18:04; Start 01/25/18 at 16:00; Stop 01/25/18 at 18:59; Status DC Potassium Bicarb/ Potassium Chloride (K-Lyte Cl Eff) 25 meq ONCE ONCE PEG Last administered on 01/25/18at 17:15; Start 01/25/18 at 15:45; Stop 01/25/18 at 15:48; Status DC Nystatin (Mycostatin Liq) 2.5 ml QID SWISH-SPIT Last administered on at 13:48; Start 01/26/18 at 21:00; Stop 01/29/18 at 20:59 A/P Problem List: (1) Major neurocognitive disorder ICD Code: F03.90 - Unspecified dementia without behavioral disturbance (2) Hemiparesis ICD Code: G81.90 - Hemiplegia, unspecified affecting unspecified side Status: Acute (3) Intracranial hemorrhage ICD Code: I62.9 - Nontraumatic intracranial hemorrhage, unspecified Status: Chronic (4) Aphasia ICD Code: R47.01 - Aphasia Assessment and Plan 62-year-old female with history of hemorrhagic stroke and resulting neurocognitive decline. Status post hemorrhagic CVA, new acute and subacute stroke with chronic right hemiplegia and aphasia. Questionable new facial droop on 01/10; Brain MRI 01/11 showed acute to subacute left thalamic infarct with mild hemorrhagic component in patient with previous history of relatively large left thalamic CVA Neuro and neurosurgery consulted; no surgical intervention needed. Agreed to pharmacologic prophylaxis Facial droop improved NURSE FEELS IS WORSE- WILL GET CAT SCAN OF BRAIN 3-17 UTI Ctx growing Enterobacter aerogenes. Patient received Levaquin x 14 days (01/03-) Repeat urinalysis showed Yenifer anticoagulates negative staph. We will start Diflucan today, still on Levaquin (for sacral wound) replace Cruz catheter after Diflucan started Pt remains afebrile Vomiting Resolved Zofran PRN Stage IV sacral pressure ulcer MRI showing bony edema and marrow replacement concerning for osteomyelitis; ID following, continue Levaquin and Flagyl until February Wound care following, S/P bedside debridement 01/11 History of hemorrhagic CVA Continue PT, OT, and ST Poor prognosis. Patient does not participate well with therapy Palliative care following Dysphagia Due to hemorrhagic stroke Status post PEG placement on 05/09/17, PEG tube out 01/18/2018, consult invasive radiology for PEG tube reinsertion, medically necessary. Continue tube feedings HTN Continue nifedipine 40 mg Q6H, Apresoline 50 mg Q6H, Metoprolol 100 mg BID, HCTZ 25 mg Daily HOLD FOR HYPOTENSION Vasotec IV PRN, Clonidine PRN Hyperglycemia Glucerna for tube feeds Follow blood sugars intermittently Xeroderma on bilateral feet Lac-Hydrin 12% Lotion continued Depression Continue Lexapro 10 mg via PEG daily Nutrition Tube feeds changed to Glucerna 1.5 , bolus feeding with Tyshawn POOR URINE OUTPUT WILL GIVE IV FLUIDS 3-17 DVT Prophylaxis Heparin (cleared by neurosurgery) SUBQ BID Discharge Planning Patient was homeless prior to admit Poor access for inpatient rehabilitation Family desires aggressive measures for therapy and placement Independent funding unavailable for placement Long-term prognosis is poor No significant capacity for regaining full functionality Palliative care following Very poor prognosis. Patient does not display any meaningful involvement with therapy. Difficult DC. Awaiting placement Harry Vargas DO Jan 29, 2018 16:28
[2018-01-30] VITALS: BP 119/74; PULSE 92; RESP 20; TEMP 98.4; O2SAT 99
[2018-01-30] MEDS: metroNIDAZOLE 500 MG TAB PEG SCH ×3 (00:22→17:01)
[2018-01-30 04:00] VITALS: BP 136/88; PULSE 85; RESP 20; TEMP 98.4; O2SAT 98
[2018-01-30] MEDS: hydrALAZINE HCL 100 MG TAB PEG SCH ×3 (05:28→20:57)
[2018-01-30] MEDS: NIFEdipine 20 MG CAP PEG SCH ×3 (05:28→20:56)
[2018-01-30] MEDS: FREE WATER G-TUBE SCH ×4 (05:28→17:01)
[2018-01-30 08:00] VITALS: BP 116/76; PULSE 78; RESP 14; TEMP 98.4; O2SAT 98
[2018-01-30] MEDS: METOPROLOL TARTRATE 25 MG TAB PEG SCH ×2 (09:38→20:57)
[2018-01-30] MEDS: ESCITALOPRAM OXALATE 10 MG TAB PEG SCH (09:38)
[2018-01-30] MEDS: LACTOBACILLUS ACIDOPHILUS TAB PEG SCH ×3 (09:38→17:01)
[2018-01-30] MEDS: HEPARIN SODIUM - SQ 10,000 UNITS/ML VIAL SQ SCH ×2 (09:38→20:57)
[2018-01-30] MEDS: LANSOPRAZOLE SOLUTAB 30 MG TAB G-TUBE SCH (09:38)
[2018-01-30] MEDS: COLLAGENASE OINT 30 GM TUBE TOPICAL SCH (09:39)
[2018-01-30] MEDS: HYDROCHLOROTHIAZIDE 25 MG TAB PEG SCH (09:39)
[2018-01-30] MEDS: FLUCONAZOLE 100 MG TAB PEG SCH (09:39)
[2018-01-30] MEDS: LACTIC ACID (AMMONIUM LACTATE) 12% LOTION 225 GM BTL TOPICAL SCH ×2 (09:39→20:58)
[2018-01-30] MEDS: SODIUM HYPOCHLORITE 0.125% 500 ML BTL TOPICAL SCH (09:39)
[2018-01-30 12:00] VITALS: BP 128/92; PULSE 72; RESP 14; TEMP 98.6; O2SAT 98
[2018-01-30] MEDS: LEVOFLOXACIN 750 MG TAB PEG SCH (13:13)
[2018-01-30 16:00] VITALS: BP_SYST 124; BP_SYST 126; BP_DIAS 64; BP_DIAS 78; PULSE 72; PULSE 90; RESP 12; TEMP 98; TEMP 98.4; O2SAT 99
--- NOTE | 2018-01-30 17:20 | HHI.PR ---
Subjective Remarks Patient had vomiting yesterday, dietary was consulted, no vomiting today but still on bolus feeding. Intermittent episodes of vomiting. Objective Vitals Vital Signs Date Time Temp Pulse Resp B/P (MAP) Pulse Ox O2 Delivery O2 Flow Rate FiO2 01/30/18 08:00 98.4 78 14 116/76 (89) 98 01/30/18 04:00 98.4 85 20 136/88 (104) 98 01/30/18 00:00 98.4 92 20 119/74 (89) 99 01/29/18 20:00 99.0 106 20 133/82 (99) 98 I/O 01/29/18 01/29/18 01/29/18 01/30/18 01/30/18 01/30/18 07:00 15:00 23:00 07:00 15:00 23:00 Intake Total 1360 ml 600 ml Output Total 750 ml 900.0 ml 550 ml Balance -750 ml 460.0 ml 50 ml Intake Oral 0 ml Tube Feeding 960 ml 0 ml Tube Irrigant 0 ml Other 400 ml 600 ml Output Urine Total 750 ml 900 ml 550 ml Tube Feeding Residual Discard 0 ml # Bowel Movements 1 1 2 Result Diagram: 01/29/18 1250 01/28/18 1209 Objective Remarks GENERAL: Patient lying in bed, appears comfortable. Nods yes/no to questions. EYES: No scleral icterus. No injection or drainage. NECK: Supple, trachea midline. No JVD. CARDIOVASCULAR: Regular rate and rhythm without murmurs, gallops, or rubs. RESPIRATORY: Breath sounds equal bilaterally. No accessory muscle use. GASTROINTESTINAL: Abdomen soft, non-tender, nondistended. PEG tube in place. Cruz catheter with yellow urine. MUSCULOSKELETAL: No cyanosis, or edema. Awake, aphasic. Still follows some commands, good handgrip, close her eyes on command. Positive for right facial droop. Increased tone on the right arm and right leg, 3/5, 4/5 on the left. Procedures Peg Tube placed 05/08/17 (Dr. De Los Santos) A/P Problem List: (1) Major neurocognitive disorder ICD Code: F03.90 - Unspecified dementia without behavioral disturbance (2) Hemiparesis ICD Code: G81.90 - Hemiplegia, unspecified affecting unspecified side Status: Acute (3) Intracranial hemorrhage ICD Code: I62.9 - Nontraumatic intracranial hemorrhage, unspecified Status: Chronic (4) Aphasia ICD Code: R47.01 - Aphasia Assessment and Plan 62-year-old female with history of hemorrhagic stroke and resulting neurocognitive decline. Status post hemorrhagic CVA, new acute and subacute stroke with chronic right hemiplegia and aphasia. Questionable new facial droop on 01/10; Brain MRI 01/11 showed acute to subacute left thalamic infarct with mild hemorrhagic component in patient with previous history of relatively large left thalamic CVA Neuro and neurosurgery consulted; no surgical intervention needed. Agreed to pharmacologic prophylaxis Facial droop improved UTI Ctx growing Enterobacter aerogenes. Patient received Levaquin x 14 days (01/03-) Repeat urinalysis showed Yenifer anticoagulates negative staph. Continue Diflucan until February 03. Cruz catheter placed. Pt remains afebrile Vomiting -Change to feeding tube continuous, awaiting dietary consult, continue water flushes per previous dosage. Stage IV sacral pressure ulcer MRI showing bony edema and marrow replacement concerning for osteomyelitis; ID following, continue Levaquin and Flagyl until February Wound care following, S/P bedside debridement 01/11 History of hemorrhagic CVA Continue PT, OT, and ST Poor prognosis. Patient does not participate well with therapy Palliative care following Dysphagia Due to hemorrhagic stroke Status post PEG placement on 05/09/17, PEG tube out 01/18/2018, consult invasive radiology for PEG tube reinsertion, medically necessary. Continue tube feedings HTN Continue nifedipine 40 mg Q6H, Apresoline 50 mg Q6H, Metoprolol 100 mg BID, HCTZ 25 mg Daily Vasotec IV PRN, Clonidine PRN Hyperglycemia Glucerna for tube feeds Follow blood sugars intermittently Xeroderma on bilateral feet Lac-Hydrin 12% Lotion continued Depression Continue Lexapro 10 mg via PEG daily Nutrition Tube feeds changed to Glucerna 1.5 , bolus feeding with Tyshawn DVT Prophylaxis Heparin (cleared by neurosurgery) Discharge Planning Patient was homeless prior to admit Poor access for inpatient rehabilitation Family desires aggressive measures for therapy and placement Independent funding unavailable for placement Long-term prognosis is poor No significant capacity for regaining full functionality Palliative care following Discharge Planning Patient was homeless prior to admit Poor access for inpatient rehabilitation Family desires aggressive measures for therapy and placement Independent funding unavailable for placement Long-term prognosis is poor No significant capacity for regaining full functionality Palliative care following Very poor prognosis. Patient does not display any meaningful involvement with therapy. Difficult DC. Awaiting placement Nolvia Salomon MD Jan 30, 2018 17:20
[2018-01-30 20:00] VITALS: BP 127/84; PULSE 86; RESP 18; TEMP 98.8; O2SAT 99
[2018-01-31] VITALS (7 sets, daily range): BP systolic 116–153; BP diastolic 63–94; PULSE 69–96; RESP 16–18; TEMP 97.4–98.9; O2SAT 96–100
[2018-01-31] MEDS: metroNIDAZOLE 500 MG TAB PEG SCH ×4 (02:19→23:53)
[2018-01-31] MEDS: FREE WATER G-TUBE SCH ×5 (06:00→23:51)
[2018-01-31] MEDS: NIFEdipine 20 MG CAP PEG SCH ×3 (06:19→20:36)
[2018-01-31] MEDS: hydrALAZINE HCL 100 MG TAB PEG SCH ×3 (06:19→20:36)
[2018-01-31] MEDS: LACTIC ACID (AMMONIUM LACTATE) 12% LOTION 225 GM BTL TOPICAL SCH ×2 (09:10→20:36)
[2018-01-31] MEDS: LACTOBACILLUS ACIDOPHILUS TAB PEG SCH ×3 (09:10→17:32)
[2018-01-31] MEDS: HYDROCHLOROTHIAZIDE 25 MG TAB PEG SCH (09:10)
[2018-01-31] MEDS: SODIUM HYPOCHLORITE 0.125% 500 ML BTL TOPICAL SCH (09:15)
[2018-01-31] MEDS: COLLAGENASE OINT 30 GM TUBE TOPICAL SCH (09:15)
[2018-01-31] MEDS: LANSOPRAZOLE SOLUTAB 30 MG TAB G-TUBE SCH (09:16)
[2018-01-31] MEDS: HEPARIN SODIUM - SQ 10,000 UNITS/ML VIAL SQ SCH ×2 (09:16→20:36)
[2018-01-31] MEDS: ESCITALOPRAM OXALATE 10 MG TAB PEG SCH (09:16)
[2018-01-31] MEDS: FLUCONAZOLE 100 MG TAB PEG SCH (09:17)
[2018-01-31] MEDS: METOPROLOL TARTRATE 25 MG TAB PEG SCH ×2 (09:18→20:36)
[2018-01-31] MEDS: LEVOFLOXACIN 750 MG TAB PEG SCH (12:29)
--- NOTE | 2018-01-31 13:36 | HHI.PR ---
Subjective Remarks No more vomiting, continues to feeds helping, no fever. Not in pain. Objective Vitals Vital Signs Date Time Temp Pulse Resp B/P (MAP) Pulse Ox O2 Delivery O2 Flow Rate FiO2 01/31/18 13:29 69 143/88 (106) 01/31/18 12:00 98.9 79 16 135/85 (102) 100 01/31/18 09:05 98.7 88 17 121/78 (92) 96 01/31/18 04:00 97.4 75 18 138/86 (103) 100 01/31/18 00:00 98.1 83 18 153/94 (113) 99 01/30/18 20:00 98.8 86 18 127/84 (98) 99 01/30/18 16:00 98.4 72 12 126/78 (94) 99 01/30/18 16:00 98.0 90 12 124/64 (84) 99 I/O 01/30/18 01/30/18 01/30/18 01/31/18 01/31/18 01/31/18 06:59 14:59 22:59 06:59 14:59 22:59 Intake Total 600 ml 1360 ml 548 ml Output Total 550 ml 1000 ml 251 ml Balance 50 ml 360 ml 297 ml Intake Oral 0 ml Tube Feeding 0 ml 960 ml 348 ml Other 600 ml 400 ml 200 ml Output Urine Total 550 ml 1000 ml 250 ml Stool Total 1 ml # Bowel Movements 2 2 Result Diagram: 01/29/18 1250 01/28/18 1209 Objective Remarks GENERAL: Patient lying in bed, appears comfortable. Nods yes/no to questions. EYES: No scleral icterus. No injection or drainage. NECK: Supple, trachea midline. No JVD. CARDIOVASCULAR: Regular rate and rhythm without murmurs, gallops, or rubs. RESPIRATORY: Breath sounds equal bilaterally. No accessory muscle use. GASTROINTESTINAL: Abdomen soft, non-tender, nondistended. PEG tube in place. MUSCULOSKELETAL: No cyanosis, or edema. Awake, aphasic. Still follows some commands, good handgrip, close her eyes on command. Positive for right facial droop. Increased tone on the right arm and right leg, 3/5, 4/5 on the left. Procedures Peg Tube placed 05/08/17 (Dr. De Los Santos) A/P Problem List: (1) Major neurocognitive disorder ICD Code: F03.90 - Unspecified dementia without behavioral disturbance (2) Hemiparesis ICD Code: G81.90 - Hemiplegia, unspecified affecting unspecified side Status: Acute (3) Intracranial hemorrhage ICD Code: I62.9 - Nontraumatic intracranial hemorrhage, unspecified Status: Chronic (4) Aphasia ICD Code: R47.01 - Aphasia Assessment and Plan 62-year-old female with history of hemorrhagic stroke and resulting neurocognitive decline. Status post hemorrhagic CVA, new acute and subacute stroke with chronic right hemiplegia and aphasia. Questionable new facial droop on 01/10; Brain MRI 01/11 showed acute to subacute left thalamic infarct with mild hemorrhagic component in patient with previous history of relatively large left thalamic CVA Neuro and neurosurgery consulted; no surgical intervention needed. Agreed to pharmacologic prophylaxis Facial droop improved UTI Ctx growing Enterobacter aerogenes. Patient received Levaquin x 14 days (01/03-) Repeat urinalysis showed Yenifer anticoagulates negative staph. Continue Diflucan until February 03. Cruz catheter placed. Pt remains afebrile Vomiting -Changed to feeding tube continuous, awaiting dietary consult, resolved. Stage IV sacral pressure ulcer MRI showing bony edema and marrow replacement concerning for osteomyelitis; ID following, continue Levaquin and Flagyl until February Wound care following, S/P bedside debridement 01/11 History of hemorrhagic CVA Continue PT, OT, and ST Poor prognosis. Patient does not participate well with therapy Palliative care following Dysphagia Due to hemorrhagic stroke Status post PEG placement on 05/09/17, PEG tube out 01/18/2018, consult invasive radiology for PEG tube reinsertion, medically necessary. Continue tube feedings HTN Continue nifedipine 40 mg Q6H, Apresoline 50 mg Q6H, Metoprolol 100 mg BID, HCTZ 25 mg Daily Vasotec IV PRN, Clonidine PRN Hyperglycemia Glucerna for tube feeds Follow blood sugars intermittently Xeroderma on bilateral feet Lac-Hydrin 12% Lotion continued Depression Continue Lexapro 10 mg via PEG daily Nutrition Tube feeds changed to Glucerna 1.5 , bolus feeding with Tyshawn DVT Prophylaxis Heparin (cleared by neurosurgery) Discharge Planning Patient was homeless prior to admit Poor access for inpatient rehabilitation Family desires aggressive measures for therapy and placement Independent funding unavailable for placement Long-term prognosis is poor No significant capacity for regaining full functionality Palliative care following Discharge Planning Patient was homeless prior to admit Poor access for inpatient rehabilitation Family desires aggressive measures for therapy and placement Independent funding unavailable for placement Long-term prognosis is poor No significant capacity for regaining full functionality Palliative care following Very poor prognosis. Patient does not display any meaningful involvement with therapy. Difficult DC. Awaiting placement Nolvia Salomon MD Jan 31, 2018 13:36
[2018-02-01] VITALS (7 sets, daily range): BP systolic 128–168; BP diastolic 69–110; PULSE 54–92; RESP 14–18; TEMP 98.1–99.2; O2SAT 97–99
[2018-02-01] MEDS: FREE WATER G-TUBE SCH ×4 (05:14→22:51)
[2018-02-01] MEDS: hydrALAZINE HCL 100 MG TAB PEG SCH ×3 (05:35→21:06)
[2018-02-01] MEDS: NIFEdipine 20 MG CAP PEG SCH ×3 (05:35→21:06)
[2018-02-01] MEDS: LACTOBACILLUS ACIDOPHILUS TAB PEG SCH ×3 (10:08→17:53)
[2018-02-01] MEDS: LACTIC ACID (AMMONIUM LACTATE) 12% LOTION 225 GM BTL TOPICAL SCH ×2 (10:08→21:00)
[2018-02-01] MEDS: ESCITALOPRAM OXALATE 10 MG TAB PEG SCH (10:08)
[2018-02-01] MEDS: COLLAGENASE OINT 30 GM TUBE TOPICAL SCH (10:08)
[2018-02-01] MEDS: FLUCONAZOLE 100 MG TAB PEG SCH (10:08)
[2018-02-01] MEDS: SODIUM HYPOCHLORITE 0.125% 500 ML BTL TOPICAL SCH (10:08)
[2018-02-01] MEDS: LEVOFLOXACIN 750 MG TAB PEG SCH (10:08)
--- NOTE | 2018-02-01 10:08 | HHI.PR ---
Subjective Remarks Patient is tolerating continuous tube feeds at 40 mL's per hour. Did not do well with bolus tube feeds Discussed with RN Patient has no current complaints Objective Vitals Vital Signs Date Time Temp Pulse Resp B/P (MAP) Pulse Ox O2 Delivery O2 Flow Rate FiO2 02/01/18 04:00 98.2 87 18 152/69 (96) 99 02/01/18 00:00 98.1 88 17 150/69 (96) 98 01/31/18 20:00 98.0 90 17 133/66 (88) 100 01/31/18 16:00 98.5 96 16 116/63 (80) 100 01/31/18 13:29 69 143/88 (106) 01/31/18 12:00 98.9 79 16 135/85 (102) 100 I/O 01/31/18 01/31/18 01/31/18 02/01/18 02/01/18 02/01/18 06:59 14:59 22:59 06:59 14:59 22:59 Intake Total 548 ml 879 ml 600 ml Output Total 251 ml 650 ml 401 ml Balance 297 ml 229 ml 199 ml Intake Oral 479 ml Tube Feeding 348 ml 400 ml Other 200 ml 400 ml 200 ml Output Urine Total 250 ml 650 ml 400 ml Stool Total 1 ml 1 ml Result Diagram: 01/29/18 1250 01/28/18 1209 Other Results Laboratory Tests Test 01/29/18 12:50 White Blood Count 4.0 TH/MM3 Red Blood Count 4.45 MIL/MM3 Hemoglobin 11.9 GM/DL Hematocrit 37.1 % Mean Corpuscular Volume 83.4 FL Mean Corpuscular Hemoglobin 26.7 PG Mean Corpuscular Hemoglobin Concent 32.1 % Red Cell Distribution Width 19.3 % Platelet Count 260 TH/MM3 Mean Platelet Volume 9.3 FL Imaging Last Impressions Head CT 01/20/18 0000 Signed Impressions: Service Date/Time: Sunday, January 21, 2018 16:13 - CONCLUSION: 1. Small area of encephalomalacia with some surrounding hemorrhage in the left basal ganglia most consistent with an area of hemorrhagic infarct. This is stable compared to previous exams. 2. Cortical atrophy and microvascular ischemic demyelinative change. Timmy Dumas MD Chest X-Ray 01/19/18 0000 Signed Impressions: Service Date/Time: Friday, January 19, 2018 17:12 - CONCLUSION: Trace left base atelectasis. Hu Henderson MD Gastrostomy Tube Placement 01/18/18 0000 Signed Impressions: Service Date/Time: January 16:41 - CONCLUSION: Uncomplicated gastrostomy tube replacement through an existing tract. Timmy Dumas MD Brain MRI 01/11/18 0000 Signed Impressions: Service Date/Time: January 08:45 - CONCLUSION: 1. Focal area of restricted diffusion in the left thalmus characteristic of an acute to subacute infarct. 2. GRE images demonstrate subacute hemorrhage associated with the infarct in the left thalamus. 3. GRE images also demonstrate punctate areas of microhemorrhage noted in the deep right mid parietal lobe, right occipital lobe and bilateral basal ganglia regions, left greater than right. 4. Diffuse bilateral cortical atrophy and chronic white matter changes. Luciano Morales MD Abdomen/Pelvis CT 01/09/18 0000 Signed Impressions: Service Date/Time: Tuesday, January 09, 2018 18:48 - CONCLUSION: 1. There is a sacral decubitus wound/ulcer which extends to the sacrum. Prior MRI demonstrated abnormal sacrum in the inferior aspect of the sacrum and coccyx. There is also presacral edema. These findings are highly suspicious for osteomyelitis. 2. Nonacute findings include 3 mm nonobstructing right renal stone and multi-fibroid uterus. Hu Cuenca MD Sacrum/Coccyx MRI 01/06/18 0000 Signed Impressions: Service Date/Time: Saturday, January 06, 2018 08:30 - CONCLUSION: Large decubitus ulcer posteriorly with not only bony edema and marrow replacement concerning for osteomyelitis but it extends to the presacral fat is well where there is marked enhancement and fluid on the T2-weighted sequences. The coccygeal involvement is at least 3.5 cm in length. Eliud Du MD Abdomen X-Ray 12/13/17 0000 Signed Impressions: Service Date/Time: Wednesday, December 13, 2017 14:17 - CONCLUSION: PEG tube in stomach.. Harry Dumas MD FACR Upper Extremity Ultrasound 11/06/17 0000 Signed Impressions: Service Date/Time: Monday, November 06, 2017 14:17 - CONCLUSION: Normal examination. Kelby Perez MD Pelvis CT 10/13/17 0000 Signed Impressions: Service Date/Time: Friday, October 13, 2017 12:02 - CONCLUSION: 1. Decubitus ulcer with small abscess in the right posterior perineal region measuring 3.1 x 4.6 cm. There is also a small abscess posterior and to the left of the rectum measuring 3.2 x 2.3 cm. Jann Weber MD Neck CTA 04/10/17 0000 Signed Impressions: Service Date/Time: Monday, April 10, 2017 22:28 - CONCLUSION: The internal carotid arteries are normal bilaterally. No significant atherosclerotic disease is noted. Eliud Du MD Head CTA 04/10/17 0000 Signed Impressions: Service Date/Time: Monday, April 10, 2017 22:50 - CONCLUSION: Mild dilatation of the basilar tip without discrete aneurysm. Some narrowing of the left middle cerebral branch after the bifurcation. Prominent left thalamic hemorrhage. Eliud Du MD Objective Remarks GENERAL: Patient lying in CHAIR, appears comfortable -HER VOICE IS very soft- spoken can be heard with my stethoscope only SKIN: Warm and dry. HEAD: Atraumatic. Normocephalic. EYES: Pupils equal and round. No scleral icterus. No injection or drainage. ENT: No nasal bleeding or discharge. Mucous membranes pink and moist. NECK: Trachea midline. No JVD. Supple CARDIOVASCULAR: Regular rate and rhythm. S1 and S2 no S3 or S4 RESPIRATORY: No accessory muscle use. Clear to auscultation. Breath sounds equal bilaterally. GASTROINTESTINAL: Abdomen soft, non-tender, nondistended. Hepatic and splenic margins not palpable. PEG tube in place--Cruz catheter in place MUSCULOSKELETAL: Extremities without clubbing, cyanosis, or edema. No obvious deformities. Has bilateral foot drop and right upper extremity flaccid can move left upper extremity with good studio set up worker strength NEUROLOGICAL: Awake and alert. No obvious cranial nerve deficits. Normal speech but very very soft. PSYCHIATRIC: Appropriate mood and affect; insight and judgment ABnormal. Procedures Peg Tube placed 05/08/17 (Dr. De Los Santos) Medications and IVs Current Medications Sodium Chloride (NS Flush) 2 ml UNSCH PRN IVF FLUSH AFTER USING IV ACCESS; Start 04/10/17 at 20:00; Stop 04/10/17 at 22:12; Status DC Nicardipine HCl 25 mg/Sodium Chloride 260 ml @ 0 mls/hr TITRATE IV Last administered on 04/10/17 21:34; Start 04/10/17 at 20:00; Stop 04/10/17 at 22:12; Status DC Sodium Chloride 1,000 ml @ 84 mls/hr [id number] IV Last administered on 04/11/17 07:47; Start 04/10/17 at 22:00; Stop 04/11/17 at 15:41; Status DC Sodium Chloride (NS Flush) 2 ml UNSCH PRN .XX FLUSH AFTER USING IV ACCESS Last administered on 05/01/17 04:49; Start 04/10/17 at 22:00; Stop 05/26/17 at 10:07 ; Status DC Sodium Chloride (NS Flush) 2 ml BID .XX Last administered on 05/26/17 09:54; Start 04/11/17 at 09:00; Stop 05/26/17 at 10:07; Status DC Acetaminophen (Tylenol) 650 mg Q6H PRN PO PAIN 1-10 AND/OR FEVER >101F Last administered on 04/26/17 13:46; Start 04/10/17 at 22:00; Stop 06/16/17 at 10:03 ; Status DC Morphine Sulfate (Morphine Inj) 2 mg Q2H PRN IV PAIN SCALE 6 TO 10 Last administered on 05/25/17 21:09; Start 04/10/17 at 22:00; Stop 05/26/17 at 10:07 ; Status DC Famotidine (Pepcid Inj) 20 mg Q12HR IV PUSH Last administered on 05/04/17 08: 37; Start 04/11/17 at 09:00; Stop 05/04/17 at 14:13; Status DC Ondansetron HCl (Zofran Inj) 4 mg Q6H PRN IV NAUSEA OR VOMITING; Start 04/10/17 at 22:00; Stop 05/26/17 at 10:07; Status DC Metoclopramide HCl (Reglan Inj) 10 mg Q6H PRN IV NAUSEA OR VOMITING; Start 04/10 at 22:00; Stop 05/26/17 at 10:07; Status DC Prochlorperazine (Compazine Supp) 25 mg Q12H PRN RECTAL NAUSEA OR VOMITING; Start 04/10/17 at 22:00; Stop 05/26/17 at 10:07; Status DC Albuterol/ Ipratropium (Duoneb Neb) 1 ampule Q2HR NEB PRN INH WHEEZING; Start 04/10/17 at 22:00; Stop 05/26/17 at 10:07; Status DC Miscellaneous Information 1 [id number] XX Last administered on 04/10/17 22:00; Start 04/10/17 at 22:00; Stop 05/26/17 at 10:07; Status DC Chlorhexidine Gluconate (Chlorhexidine 2% Cloth) Taper DAILY@04 TOP Last administered on 05/21/17 04:00; Start 04/11/17 at 04:00; Stop 05/26/17 at 10:07 ; Status DC Chlorhexidine Gluconate (Chlorhexidine 2% Cloth) 3 pack UNSCH PRN TOP HYGIENIC CARE; Start 04/10/17 at 22:00; Stop 05/26/17 at 10:07; Status DC Senna/Docusate Sodium (Evelyn-Colace) 1 tab BID PO Last administered on 09:20; Start 04/11/17 at 09:00; Stop 06/16/17 at 10:03; Status DC Magnesium Hydroxide (Milk Of Magnesia Liq) 30 ml Q12H PRN PO MILD - MODERATE CONSTIPATION; Start 04/10/17 at 22:00; Stop 05/26/17 at 10:07; Status DC Sennosides (Senokot) 17.2 mg Q12H PRN PO MODERATE - SEVERE CONSTIPATION Last administered on 05/08/17 21:29; Start 04/10/17 at 22:00; Stop 05/26/17 at 10:07; Status DC Bisacodyl (Dulcolax Supp) 10 mg DAILY PRN RECTAL SEVERE CONSITIPATION; Start at 22:00 Lactulose (Lactulose Liq) 30 ml DAILY PRN PO SEVERE CONSITIPATION Last administered on 04/24/17 08:44; Start 04/10/17 at 22:00; Stop 06/16/17 at 10:03 ; Status DC Nicardipine HCl 25 mg/Sodium Chloride 260 ml @ 0 mls/hr TITRATE IV Last administered on 04/14/17 04:35; Start 04/10/17 at 22:15; Stop 04/14/17 at 12:18; Status DC Iohexol (Omnipaque 350 Inj) 70 ml STK-MED ONCE IV Last administered on 22:35; Start 04/10/17 at 22:35; Stop 04/10/17 at 22:36; Status DC Labetalol HCl (Trandate Inj) 20 mg Q4H PRN IV PUSH sbp>160 Last administered on 04/17/17 02:24; Start 04/12/17 at 08:15; Stop 04/25/17 at 18:06; Status DC Hydralazine HCl (Apresoline Inj) 20 mg Q4H PRN IV PUSH sbp>150 Last administered on 05/17/17 20:39; Start 04/12/17 at 08:15; Stop 05/18/17 at 14:44 ; Status DC Amlodipine Besylate (Norvasc) 5 mg DAILY PO Last administered on 04/14/17 08:55 ; Start 04/12/17 at 09:00; Stop 04/15/17 at 06:44; Status DC Metoclopramide HCl (Reglan Inj) 5 mg Q8HR IV PUSH Last administered on 14:02; Start 04/12/17 at 16:00; Stop 05/04/17 at 14:13; Status DC Potassium Chloride 100 ml @ 50 mls/hr Q2H PRN IV For Potassium 2.8 - 3.2 mEq/L ; Start 04/13/17 at 11:45; Stop 04/25/17 at 11:32; Status DC Potassium Chloride 100 ml @ 50 mls/hr Q2H PRN IV For Potassium 2.8 - 3.2 mEq/ L Last administered on 04/14/17 13:06; Start 04/13/17 at 11:45; Stop 04/25/17 at 11:32; Status DC Potassium Bicarb/ Potassium Chloride (K-Lyte Cl Eff) 50 meq UNSCH PRN PO For Potassium 3.3 - 3.5 mEq/L Last administered on 04/19/17 14:03; Start 04/13/17 at 11:45; Stop 04/25/17 at 11:32; Status DC Potassium Chloride 100 ml @ 25 mls/hr UNSCH PRN IV For Potassium 3.3 - 3.5 mEq /L; Start 04/13/17 at 11:45; Stop 04/25/17 at 11:32; Status DC Potassium Chloride 100 ml @ 50 mls/hr Q2H PRN IV For Potassium 3.3 - 3.5 mEq/L ; Start 04/13/17 at 11:45; Stop 04/25/17 at 11:32; Status DC Magnesium Sulfate 4 gm/Sodium Chloride 100 ml @ 50 mls/hr UNSCH PRN IV For Magnesium 0.9 - 1.1 mg/dL; Start 04/13/17 at 11:45; Stop 04/25/17 at 11:32; Status DC Magnesium Oxide (Mag-Ox) 800 mg UNSCH PRN PO For Magnesium 1.2 - 1.6 mg/dL; Start 04/13/17 at 11:45; Stop 04/25/17 at 11:32; Status DC Magnesium Sulfate 2 gm/Sodium Chloride 100 ml @ 50 mls/hr UNSCH PRN IV For Magnesium 1.2 - 1.6 mg/dL; Start 04/13/17 at 11:45; Stop 04/25/17 at 11:32; Status DC Potassium Phosphate (K-Phos) 2,000 mg Q4H PRN PO For Phosphorus < 2.5 mg/dL; Start 04/13/17 at 11:45; Stop 04/25/17 at 11:32; Status DC Sodium Phosphate 30 mmol/Sodium Chloride 250 ml @ 42 mls/hr UNSCH PRN IV For Phosphorus < 2.5 mg/dL; Start 04/13/17 at 11:45; Stop 04/25/17 at 11:32; Status DC Potassium Phosphate (K-Phos) 2,000 mg UNSCH PRN PO/TUBE SEE LABEL COMMENTS; Start 04/13/17 at 11:45; Stop 04/25/17 at 11:32; Status DC Potassium Phosphate 30 mmol/ Sodium Chloride 260 ml @ 42 mls/hr UNSCH PRN IV SEE LABEL COMMENTS; Start 04/13/17 at 11:45; Stop 04/25/17 at 11:32; Status DC Metoprolol Tartrate (Lopressor) 25 mg Q8HR PO Last administered on 04/14/17t 05: 40; Start 04/13/17 at 14:00; Stop 04/14/17 at 12:18; Status DC Hydralazine HCl (Apresoline) 50 mg Q8H PO Last administered on 04/14/17 03:23; Start 04/13/17 at 12:00; Stop 04/14/17 at 09:23; Status DC Hydralazine HCl (Apresoline) 100 mg Q8H PO Last administered on 04/14/17 11:25 ; Start 04/14/17 at 12:00; Stop 04/14/17 at 19:47; Status DC Metoprolol Tartrate (Lopressor) 50 mg Q8HR PO Last administered on 04/24/17 05 :27; Start 04/14/17 at 14:00; Stop 04/24/17 at 09:28; Status DC Hydralazine HCl (Apresoline Inj) 20 mg ONCE ONCE IV PUSH Last administered on 04/14/17 17:42; Start 04/14/17 at 17:15; Stop 04/14/17 at 17:32; Status DC Labetalol HCl (Trandate Inj) 10 mg ONCE ONCE IV PUSH Last administered on 17:42; Start 04/14/17 at 17:15; Stop 04/14/17 at 17:32; Status DC Clonidine (Catapres) 0.3 mg ONCE ONCE PO Last administered on 04/14/17 17:50; Start 04/14/17 at 17:15; Stop 04/14/17 at 17:32; Status DC Clonidine (Catapres) 0.2 mg Q8HR PO ; Start 04/14/17 at 22:00; Stop 04/14/17 at 22 :00; Status DC Clonidine (Catapres) 0.3 mg Q8HR PO Last administered on 04/26/17 05:55; Start 04/14/17 at 22:00; Stop 04/26/17 at 14:39; Status DC Hydralazine HCl (Apresoline) 100 mg Q6HR PO Last administered on 04/15/17 10: 39; Start 04/15/17 at 00:00; Stop 04/15/17 at 13:10; Status DC Amlodipine Besylate (Norvasc) 10 mg DAILY PO Last administered on 06/12/17 07: 39; Start 04/14/17 at 19:45; Stop 06/12/17 at 07:56; Status DC Enalaprilat (Vasotec Inj) 1.25 mg Q6H PRN IV PUSH SBP>160, DBP>90 Last administered on 05/13/17 01:22; Start 04/15/17 at 01:15; Stop 05/26/17 at 10:07 ; Status DC Nitroglycerin (Nitroglycerin 2% Oint) 2 inch Q6HR PRN TOPICAL SBP>160, DBP>90 Last administered on 04/16/17 12:34; Start 04/15/17 at 06:00; Stop 05/26/17 at 10:07; Status DC Hydralazine HCl (Apresoline) 100 mg Q8HR PO Last administered on 04/26/17 05: 55; Start 04/15/17 at 14:00; Stop 04/26/17 at 14:39; Status DC Lisinopril (Prinivil) 20 mg DAILY PO Last administered on 04/16/17 08:32; Start 04/15/17 at 13:30; Stop 04/16/17 at 14:58; Status DC Lisinopril (Prinivil) 20 mg ONCE ONCE PO Last administered on 04/16/17 15:27 ; Start 04/16/17 at 15:00; Stop 04/16/17 at 15:03; Status DC Lisinopril (Prinivil) 40 mg BID PO Last administered on 04/20/17 09:09; Start 04/16/17 at 21:00; Stop 04/20/17 at 16:42; Status DC Hydrochlorothiazide (Hydrodiuril) 25 mg DAILY PO Last administered on 08:59; Start 04/17/17 at 17:45; Stop 04/18/17 at 16:28; Status DC Hydrochlorothiazide (Hydrodiuril) 25 mg ONCE ONCE PO Last administered on 04/18 16:51; Start 04/18/17 at 16:30; Stop 04/18/17 at 16:32; Status DC Hydrochlorothiazide (Hydrodiuril) 50 mg DAILY PO Last administered on 08:50; Start 04/19/17 at 09:00; Stop 04/25/17 at 18:06; Status DC Lisinopril (Prinivil) 30 mg BID PO Last administered on 04/25/17 08:50; Start 04/20/17 at 21:00; Stop 04/25/17 at 18:06; Status DC Miscellaneous (Pill Splitter) 1 ea UNSCH PRN OTHER SEE LABEL COMMENTS; Start at 17:15; Stop 10/18/17 at 09:37; Status DC Ceftriaxone Sodium 1000 mg/ Sodium Chloride 100 ml @ 200 mls/hr HS IV Last administered on 04/29/17 22:04; Start 04/22/17 at 21:30; Stop 04/30/17 at 12:37 ; Status DC Metoprolol Tartrate (Lopressor) 50 mg BID PO Last administered on 05/26/17 09: 54; Start 04/24/17 at 21:00; Stop 05/26/17 at 10:12; Status DC Lisinopril (Prinivil) 20 mg DAILY PO Last administered on 04/27/17 09:52; Start 04/26/17 at 09:00; Stop 04/28/17 at 00:21; Status DC Clonidine (Catapres) 0.2 mg Q8HR PO Last administered on 05/26/17 05:57; Start 04/26/17 at 22:00; Stop 05/26/17 at 10:12; Status DC Hydralazine HCl (Apresoline) 50 mg Q8HR PO Last administered on 04/27/17 12:45 ; Start 04/26/17 at 22:00; Stop 04/27/17 at 15:31; Status DC Hydralazine HCl (Apresoline) 100 mg Q8HR PO Last administered on 06/10/17 06:18 ; Start 04/27/17 at 22:00; Stop 06/10/17 at 12:03; Status DC Lisinopril (Prinivil) 40 mg DAILY PO Last administered on 06/16/17 09:20; Start 04/28/17 at 09:00; Stop 06/16/17 at 10:03; Status DC Famotidine (Pepcid) 20 mg BID NG Last administered on 05/09/17 09:36; Start at 21:00; Stop 05/09/17 at 12:49; Status DC Lactic Acid (Lac-Hydrin 12% Lotion) 1 applic BID TOPICAL Last administered on 20:36; Start 05/04/17 at 14:00 Cefazolin Sodium 1000 mg/Sodium Chloride 100 ml @ 200 mls/hr LICENSED ARCHITECT IV ; Start 05/06/17 at 10:30; Stop 05/09/17 at 10:29; Status DC Cefazolin Sodium (Ancef Inj) 1,000 mg STK-MED ONCE IV Last administered on 15:00; Start 05/08/17 at 15:00; Stop 05/08/17 at 15:08; Status DC Propofol (Diprivan 200 Mg/20 ml Inj) 150 mg STK-MED ONCE IV PUSH ; Start at 15:27; Stop 05/08/17 at 15:45; Status DC Lansoprazole (Prevacid Odt) 30 mg DAILY G-TUBE Last administered on 01/31/18 09:16; Start 05/10/17 at 09:00 Nystatin (Mycostatin Liq) 5 ml QID SWISH-SWAL Last administered on 05/22/17 09:36; Start 05/14/17 at 13:00; Stop 05/22/17 at 11:19; Status DC Hydralazine HCl (Apresoline) 25 mg Q4HR PRN PEG for sbp greater than 150 Last administered on 01/23/18 22:03; Start 05/18/17 at 14:45 Clonidine (Catapres) 0.1 mg Q6H PRN PO for SBP greater than 170 Last administered on 05/22/17 02:48; Start 05/21/17 at 07:30; Stop 05/26/17 at 10:12 ; Status DC Nystatin (Mycostatin Liq) 5 ml QID SWISH-SWAL Last administered on 05/28/17 09:43; Start 05/23/17 at 13:00; Stop 05/28/17 at 10:02; Status DC Ondansetron HCl (Zofran Liq) 4 mg Q6H PRN PEG NAUSEA OR VOMITING Last administered on 01/27/18 09:37; Start 05/26/17 at 10:00 Metoprolol Tartrate (Lopressor) 75 mg BID PO Last administered on 05/28/17 09: 43; Start 05/26/17 at 21:00; Stop 05/28/17 at 09:58; Status DC Clonidine (Catapres-Tts 0.2 Mg Patch.7d) 1 patch Q7D T-DERMAL Last administered on 06/02/17 11:27; Start 05/26/17 at 12:00; Stop 06/06/17 at 12:47 ; Status DC Miscellaneous Information 1 Q7D T-DERMAL Last administered on 06/02/17 11:28; Start 06/02/17 at 12:00; Stop 06/06/17 at 13:31; Status DC Metoprolol Tartrate (Lopressor) 100 mg BID PO Last administered on 06/16/17 09 :20; Start 05/28/17 at 21:00; Stop 06/16/17 at 10:03; Status DC Fluconazole (Diflucan) 200 mg DAILY PO Last administered on 06/03/17 08:44; Start 05/28/17 at 11:00; Stop 06/04/17 at 08:59; Status DC Levofloxacin (Levaquin Liq) 750 mg Q24H PEG ; Start 05/29/17 at 11:00; Stop at 15:05; Status DC Levofloxacin (Levaquin Liq) 750 mg DAILY@16 PEG Last administered on 16:20; Start 05/29/17 at 16:00; Stop 06/04/17 at 16:01; Status DC Sodium Chloride 500 ml @ 500 mls/hr BOLUS ONCE IV Last administered on 15:43; Start 06/01/17 at 11:30; Stop 06/01/17 at 12:29; Status DC Sodium Chloride 1,000 ml @ 100 mls/hr Q10H IV Last administered on 06/03/17 06:17; Start 06/02/17 at 11:15; Stop 06/03/17 at 10:16; Status DC Clonidine (Catapres-Tts 0.3 Mg Patch.7d) 1 patch Q7D T-DERMAL Last administered on 12/19/17at 17:32; Start 06/06/17 at 15:00; Stop 12/24/17 at 09:54 ; Status DC Miscellaneous Information 1 Q7D T-DERMAL Last administered on 12/19/17 15:00; Start 06/06/17 at 15:00; Stop 12/24/17 at 09:54; Status DC Hydralazine HCl (Apresoline) 100 mg Q6HR PO Last administered on 06/16/17 06: 20; Start 06/10/17 at 18:00; Stop 06/16/17 at 10:03; Status DC Nifedipine (Procardia Xl) 60 mg DAILY PO Last administered on 06/15/17 10:04; Start 06/12/17 at 09:00; Stop 06/16/17 at 10:03; Status DC Acetaminophen (Tylenol) 650 mg Q6H PRN PEG PAIN 1-10 AND/OR FEVER >101F Last administered on 10/17/17 19:29; Start 06/16/17 at 16:00; Status Future Hold Senna/Docusate Sodium (Evelyn-Colace) 1 tab BID PEG Last administered on 09:42; Start 06/16/17 at 21:00; Stop 06/28/17 at 10:38; Status DC Hydralazine HCl (Apresoline) 100 mg Q6HR PEG Last administered on 08/17/17 22 :43; Start 06/16/17 at 12:00; Stop 08/18/17 at 07:50; Status DC Lactulose (Lactulose Liq) 30 ml DAILY PRN PEG SEVERE CONSITIPATION; Start 06/16 at 10:00; Stop 08/17/17 at 08:28; Status DC Lisinopril (Prinivil) 40 mg DAILY PEG Last administered on 08/16/17 08:04; Start 06/17/17 at 09:00; Stop 08/18/17 at 07:50; Status DC Metoprolol Tartrate (Lopressor) 100 mg BID PEG Last administered on 11/21/17at 21:41; Start 06/16/17 at 21:00; Stop 11/23/17 at 11:24; Status DC Nifedipine (Procardia) 20 mg Q8HR PEG Last administered on 06/20/17 05:41; Start 06/16/17 at 14:00; Stop 06/20/17 at 14:35; Status DC Nifedipine (Procardia) 30 mg Q8HR .XX Last administered on 06/22/17 13:13; Start 06/20/17 at 22:00; Stop 06/22/17 at 13:14; Status DC Nifedipine (Procardia) 30 mg Q6HR .XX Last administered on 06/26/17 06:32; Start 06/22/17 at 18:00; Stop 06/26/17 at 11:22; Status DC Nifedipine (Procardia) 40 mg Q6HR PEG Last administered on 12/17/17at 11:55; Start 06/26/17 at 12:00; Stop 12/17/17 at 18:00; Status DC Sennosides (Senna Liq) 8.8 mg DAILY PEG Last administered on 10/17/17 10:02 ; Start 06/29/17 at 09:00; Status Future Hold Hydrochlorothiazide (Hydrodiuril) 25 mg DAILY PO Last administered on 07/07/17 08:49; Start 07/01/17 at 12:00; Stop 07/07/17 at 11:21; Status DC Hydrochlorothiazide (Hydrodiuril) 25 mg BID@18 PEG Last administered on 07/21 17:17; Start 07/07/17 at 18:00; Stop 07/28/17 at 15:04; Status DC Potassium Bicarb/ Potassium Chloride (K-Lyte Cl Eff) 25 meq DAILY PEG Last administered on 07/22/17 09:54; Start 07/07/17 at 11:30; Stop 07/28/17 at 15:04 ; Status DC Hydrochlorothiazide (Hydrodiuril) 25 mg DAILY PO Last administered on 08:04; Start 08/04/17 at 12:30; Stop 08/18/17 at 07:50; Status DC Nystatin (Mycostatin Liq) 5 ml QID OTHER Last administered on 08/21/17 17:54 ; Start 08/13/17 at 18:00; Stop 08/21/17 at 18:00; Status DC Polyethylene Glycol (Miralax) 17 gm DAILY PRN PO severe constipation Last administered on 08/30/17 23:22; Start 08/17/17 at 08:30; Stop 12/09/17 at 09: 10; Status DC Hydralazine HCl (Apresoline) 100 mg Q8HR PEG Last administered on 08/19/17 06 :38; Start 08/18/17 at 14:00; Stop 08/19/17 at 07:53; Status DC Lisinopril (Prinivil) 20 mg BID PEG ; Start 08/18/17 at 09:00; Stop 08/19/17 at 07:53; Status DC Hydralazine HCl (Apresoline) 50 mg Q6HR PEG Last administered on 12/10/17 23:28 ; Start 08/19/17 at 12:00; Stop 12/11/17 at 04:19; Status DC Lisinopril (Prinivil) 10 mg BID PEG Last administered on 11/15/17 08:28; Start 08/19/17 at 09:00; Stop 11/15/17 at 10:41; Status DC Hydrochlorothiazide (Hydrodiuril) 25 mg DAILY PO Last administered on 17:12; Start 08/20/17 at 15:00; Stop 08/21/17 at 08:35; Status DC Nystatin (Mycostatin Liq) 5 ml QID OTHER Last administered on 09/02/17 21:12 ; Start 08/23/17 at 18:00; Stop 09/03/17 at 09:51; Status DC Hydrochlorothiazide (Hydrodiuril) 25 mg DAILY PO Last administered on 10:34; Start 08/29/17 at 11:15; Stop 09/03/17 at 09:51; Status DC Hydrochlorothiazide (Microzide) 12.5 mg DAILY PO Last administered on 09:03; Start 09/04/17 at 09:00; Stop 09/04/17 at 13:23; Status DC Nystatin (Mycostatin Liq) 5 ml QID SWISH-SWAL Last administered on 10/17/17 14:28; Start 09/07/17 at 13:00; Stop 10/17/17 at 15:32; Status DC Hydrochlorothiazide (Microzide) 12.5 mg DAILY PO Last administered on 08:12; Start 09/15/17 at 11:45; Stop 09/27/17 at 09:00; Status DC Hydrochlorothiazide (Hydrodiuril) 25 mg DAILY PO Last administered on at 10:27; Start 09/27/17 at 09:15; Stop 01/19/18 at 09:03; Status DC Vancomycin HCl 1000 mg/Sodium Chloride 250 ml @ 250 mls/hr ONCE ONCE IV Last administered on 10/10/17 11:28; Start 10/10/17 at 10:00; Stop 10/10/17 at 10:59 ; Status DC Pharmacy Profile Note 0 ml @ 0 mls/hr UNSCH OTHER ; Start 10/10/17 at 09:00; Stop 10/17/17 at 15:26; Status DC Potassium Bicarb/ Potassium Chloride (K-Lyte Cl Eff) 50 meq ONCE ONCE PEG Last administered on 10/10/17 10:14; Start 10/10/17 at 09:30; Stop 10/10/17 at 09:31; Status DC Vancomycin HCl 1250 mg/Sodium Chloride 262.5 ml @ 250 mls/hr Q12H IV Last administered on 10/11/17 18:08; Start 10/10/17 at 18:00; Stop 10/11/17 at 21:55 ; Status DC Miscellaneous Information SPECIFIC LAB TO BE DRAWN:VANCO TROUGH DATE TO BE .[place] ONCE ONCE .XX Last administered on 10/11/17 17:20; Start 10/11/17 at 17 :45; Stop 10/11/17 at 17:46; Status DC Piperacillin Sod/ Tazobactam Sod 50 ml @ 100 mls/hr Q6HR IV ; Start 10/10/17 at 12:00; Stop 10/10/17 at 14:07; Status DC Piperacillin Sod/ Tazobactam Sod 50 ml @ 100 mls/hr Q6HR IV Last administered on 10/22/17 05:38; Start 10/10/17 at 15:00; Stop 10/22/17 at 08:29; Status DC Vancomycin HCl 1000 mg/Sodium Chloride 250 ml @ 250 mls/hr Q12H IV Last administered on 10/14/17 06:03; Start 10/12/17 at 06:00; Stop 10/14/17 at 13:01 ; Status DC Miscellaneous Information SPECIFIC LAB TO BE BEKA... ONCE ONCE .XX Last administered on 10/14/17 05:45; Start 10/14/17 at 05:45; Stop 10/14/17 at 05:46 ; Status DC Collagenase (Santyl Oint) 1 applic BID TOPICAL Last administered on 10/18/17 21:00; Start 10/12/17 at 09:00; Stop 10/19/17 at 08:47; Status DC Potassium Chloride/Sodium Chloride 1,000 ml @ 100 mls/hr Q10H IV Last administered on 10/16/17 20:57; Start 10/13/17 at 09:00; Stop 10/17/17 at 04: 36; Status DC Fluconazole/ Sodium Chloride 100 ml @ 100 mls/hr Q24H IV Last administered on 10/15/17 12:49; Start 10/13/17 at 12:00; Stop 10/16/17 at 07:19; Status DC Iohexol (Omnipaque 350 Inj) 85 ml STK-MED ONCE IVCONTRAST Last administered on 10/13/17 12:29; Start 10/13/17 at 12:29; Stop 10/13/17 at 12:30; Status DC Potassium Chloride 100 ml @ 50 mls/hr Q2H IV Last administered on 10/14/17 12 :51; Start 10/14/17 at 08:30; Stop 10/14/17 at 12:29; Status DC Potassium Bicarb/ Potassium Chloride (K-Lyte Cl Eff) 50 meq ONCE ONCE PEG Last administered on 10/14/17 10:48; Start 10/14/17 at 08:15; Stop 10/14/17 at 08:17; Status DC Vancomycin HCl 1250 mg/Sodium Chloride 262.5 ml @ 250 mls/hr Q12H IV Last administered on 10/14/17 18:20; Start 10/14/17 at 18:00; Stop 10/15/17 at 09: 15; Status DC Miscellaneous Information SPECIFIC LAB TO BE DRAWN:VANCO TROUGH DATE TO BE DRLanre.Lanre ONCE ONCE .XX ; Start 10/16/17 at 05:45; Stop 10/16/17 at 05:46; Status Cancel Potassium Bicarb/ Potassium Chloride (K-Lyte Cl Eff) 50 meq ONCE ONCE PO Last administered on 10/15/17 11:45; Start 10/15/17 at 10:00; Stop 10/15/17 at 10:01; Status DC Vancomycin HCl 1250 mg/Sodium Chloride 262.5 ml @ 250 mls/hr Q12H IV Last administered on 10/17/17 10:01; Start 10/15/17 at 10:00; Stop 10/17/17 at 15 :26; Status DC Miscellaneous Information SPECIFIC LAB TO BE DRAWN:VANCOMYCIN TROUGH DATE TO... ONCE ONCE .XX Last administered on 10/16/17 21:45; Start 10/16/17 at 21:45 ; Stop 10/16/17 at 21:46; Status DC Ciprofloxacin (Cipro) 500 mg Q12HR PEG Last administered on 10/18/17 21:00; Start 10/16/17 at 09:00; Stop 10/19/17 at 09:14; Status DC Potassium Chloride/Sodium Chloride 1,000 ml @ 100 mls/hr Q10H IV Last administered on 10/17/17 10:02; Start 10/17/17 at 08:00; Stop 10/17/17 at 18 :32; Status DC Hydromorphone HCl (Dilaudid Pf Inj) 2 mg ONCE ONCE IV PUSH Last administered on 10/17/17 12:50; Start 10/17/17 at 12:15; Stop 10/17/17 at 12:16; Status DC Sodium Hypochlorite (Dakin'S 0.5% Soln) 500 ml ONCE ONCE TOPICAL Last administered on 10/17/17 14:28; Start 10/17/17 at 13:30; Stop 10/17/17 at 13 :35; Status DC Sodium Hypochlorite (Dakin'S 0.25% Soln) 50 ml BID TOPICAL Last administered on 10/18/17 21:00; Start 10/17/17 at 21:00; Stop 10/19/17 at 08:47; Status DC Morphine Sulfate (Morphine Inj) 2 mg BID PRN IV PUSH painful dressing changes Last administered on 10/20/17 09:23; Start 10/17/17 at 15:00; Stop 10/20/17 at 16:23; Status DC Benztropine Mesylate (Cogentin Inj) 0.5 mg HS IV PUSH ; Start 10/17/17 at 21:00 ; Stop 10/17/17 at 21:00; Status DC Naloxone HCl (Narcan Inj) 0.4 mg UNSCH X1 PRN IV PUSH RESP DEPRESSION OR HYPOTENSION; Start 10/17/17 at 17:30; Stop 10/20/17 at 17:29; Status DC Baclofen (Lioresal) 5 mg ONCE ONCE PO Last administered on 10/17/17 17:45; Start 10/17/17 at 17:45; Stop 10/17/17 at 17:46; Status DC Miscellaneous (Pill Splitter) 1 ea UNSCH PRN OTHER SEE LABEL COMMENTS Last administered on 12/08/17at 20:45; Start 10/17/17 at 17:45 Sodium Chloride 1,000 ml @ 42 mls/hr [id number] IV Last administered on 06:00; Start 10/18/17 at 10:00; Stop 10/24/17 at 15:36; Status DC Collagenase (Santyl Oint) 1 applic BID TOPICAL Last administered on 11/14/17at 07 :57; Start 10/19/17 at 10:00; Stop 11/17/17 at 09:01; Status DC Water (Free Water) 150 ml Q6HR G-TUBE Last administered on 02/01/18 05:14; Start 10/19/17 at 12:00 Morphine Sulfate (Morphine Inj) 2 mg BID PRN IV PUSH painful dressing changes Last administered on 10/22/17 09:40; Start 10/20/17 at 16:30; Stop 10/23/17 at 17:45; Status DC Sodium Chloride 500 ml @ 50 mls/hr Q10H IV ; Start 10/20/17 at 17:30; Stop at 17:56; Status DC Sodium Chloride 500 ml @ 1,000 mls/hr BOLUS ONCE IV Last administered on 18:00; Start 10/20/17 at 18:00; Stop 10/20/17 at 18:29; Status DC Diphenhydramine HCl (Benadryl Liq) 50 mg ONCE ONCE PO Last administered on 01:05; Start 10/22/17 at 00:15; Stop 10/22/17 at 00:18; Status DC Piperacillin Sod/ Tazobactam Sod 3.375 gm/Sodium Chloride 100 ml @ 100 mls/hr Q6HR IV Last administered on 10/23/17 17:24; Start 10/22/17 at 12:00; Stop 10/23/17 at 17:45; Status DC Diphenhydramine HCl (Benadryl Inj) 25 mg ONCE ONCE IM Last administered on 17:54; Start 10/23/17 at 17:15; Stop 10/23/17 at 17:40; Status DC Potassium Bicarb/ Potassium Chloride (K-Lyte Cl Eff) 25 meq ONCE ONCE PO ; Start 10/23/17 at 17:45; Stop 10/23/17 at 17:57; Status DC Cefepime HCl 1000 mg/Sodium Chloride 100 ml @ 200 mls/hr Q12H IV Last administered on 11/10/17 09:06; Start 10/23/17 at 20:00; Stop 11/10/17 at 19:59 ; Status DC Levofloxacin/ Dextrose 100 ml @ 100 mls/hr Q24H IV Last administered on 17:56; Start 10/24/17 at 18:00; Stop 11/10/17 at 17:59; Status DC Ketorolac Tromethamine (Toradol Inj) 15 mg DAILY IV PUSH Last administered on 10/28/17 13:45; Start 10/24/17 at 09:00; Stop 10/29/17 at 08:59; Status DC Prednisone (predniSONE LIQ) 10 mg BID PO ; Start 10/23/17 at 21:00; Stop 10/23 at 21:51; Status DC Potassium Bicarb/ Potassium Chloride (K-Lyte Cl Eff) 25 meq ONCE ONCE PEG Last administered on 10/23/17 18:02; Start 10/23/17 at 18:00; Stop 10/23/17 at 18:01; Status DC Prednisone (predniSONE LIQ) 10 mg BID G-TUBE Last administered on 10/24/17 09 :34; Start 10/24/17 at 09:00; Stop 10/24/17 at 15:36; Status DC Potassium Chloride/Sodium Chloride 1,000 ml @ 42 mls/hr [id number] IV Last administered on 10/25/17 11:37; Start 10/24/17 at 16:00; Stop 10/25/17 at 13 :32; Status DC Lisinopril (Prinivil) 10 mg BID PEG Last administered on 11/21/17at 21:41; Start 11/15/17 at 21:00; Stop 11/22/17 at 08:58; Status DC Sodium Chloride (NS Flush) 2 ml UNSCH PRN IV FLUSH FLUSH AFTER USING IV ACCESS Last administered on 01/04/18at 08:21; Start 11/17/17 at 10:15; Stop 01/19/18 at 09:03; Status DC Lisinopril (Prinivil) 5 mg BID PEG ; Start 11/22/17 at 09:15; Stop 11/23/17 at 11:24; Status DC Metoprolol Tartrate (Lopressor) 50 mg BID PEG Last administered on 11/23/17at 20 :50; Start 11/23/17 at 21:00; Stop 11/24/17 at 12:59; Status DC Metoprolol Tartrate (Lopressor) 25 mg BID PEG Last administered on 01/31/18at 20 :36; Start 11/24/17 at 21:00 Ceftriaxone Sodium 1000 mg/ Sodium Chloride 100 ml @ 200 mls/hr Q24H IV Last administered on 12/24/17 08:43; Start 12/09/17 at 09:00; Stop 12/24/17 at 09:54 ; Status DC Polyethylene Glycol (Miralax) 17 gm DAILY PO Last administered on 12/14/17 09: 08; Start 12/09/17 at 09:15; Stop 12/16/17 at 17:49; Status DC Hydralazine HCl (Apresoline) 50 mg Q6HR PEG Last administered on 12/12/17at 17:41 ; Start 12/11/17 at 06:00; Stop 12/12/17 at 19:14; Status DC Hydralazine HCl (Apresoline) 50 mg Q8HR PEG Last administered on 02/01/18at 05: 35; Start 12/12/17 at 22:00 Potassium Chloride/Dextrose/ Sod Cl 1,000 ml @ 84 mls/hr [id number] IV Last administered on 12/12/17 20:40; Start 12/12/17 at 19:15; Stop 12/13/17 at 12:00; Status DC Diatrizoate Meglum/ Diatrizoate Sod (Md Rae Liq) 120 ml STK-MED ONCE PEG ; Start 12/13/17 at 15:17; Stop 12/13/17 at 15:18; Status DC Potassium Bicarb/ Potassium Chloride (K-Lyte Cl Eff) 25 meq ONCE ONCE PO Last administered on 12/16/17at 09:56; Start 12/16/17 at 10:00; Stop 12/16/17 at 10:24; Status DC Polyethylene Glycol (Miralax) 17 gm DAILY PRN PO SEVERE CONSTIPATION; Start 08/23 at 18:00; Stop 01/19/18 at 09:02; Status DC Nifedipine (Procardia) 40 mg Q6HR .XX Last administered on 12/27/17at 05:22; Start 12/17/17 at 18:00; Stop 12/27/17 at 09:37; Status DC Oxycodone/ Acetaminophen (Percocet 5-325 Mg) 1 tab Q6H PRN PO PAIN 3 TO 5 Last administered on 01/17/18at 16:35; Start 12/22/17 at 15:00; Stop 01/19/18 at 09:02; Status DC Oxycodone/ Acetaminophen (Percocet 10-325 Mg) 1 tab Q6H PRN PO PAIN 6-10 Last administered on 01/19/18at 05:38; Start 12/22/17 at 15:00; Stop 01/19/18 at 09:02 ; Status DC Clonidine (Catapres-Tts 0.2 Mg Patch.7d) 1 patch Q7D T-DERMAL Last administered on 12/24/17at 12:34; Start 12/24/17 at 11:00; Stop 12/26/17 at 17:20 ; Status DC Miscellaneous Information 1 Q7D T-DERMAL ; Start 12/31/17 at 11:00; Stop at 11:00; Status DC Albuterol/ Ipratropium (Duoneb Neb) 1 ampule STK-MED ONCE .ROUTE ; Start at 18:07; Stop 12/24/17 at 18:08; Status DC Collagenase (Santyl Oint) 1 applic DAILY TOPICAL Last administered on at 09:15; Start 12/25/17 at 17:00 Sodium Hypochlorite (Dakin'S 0.5% Soln) 500 ml DAILY TOPICAL ; Start 12/25/17 at 17:00; Stop 12/25/17 at 17:51; Status DC Sodium Hypochlorite (Dakin'S 0.25% Soln) 500 ml DAILY TOPICAL Last administered on 01/05/18at 09:35; Start 12/25/17 at 17:30; Stop 01/05/18 at 15:29; Status DC Clonidine (Catapres-Tts 0.1mg Patch.7d) 1 patch Q7D T-DERMAL Last administered on 12/26/17at 18:09; Start 12/26/17 at 18:00; Stop 12/28/17 at 23:53; Status DC Miscellaneous Information 1 Q7D T-DERMAL Last administered on 12/26/17at 18:00; Start 12/26/17 at 18:00; Stop 12/28/17 at 23:53; Status DC Nifedipine (Procardia) 40 mg Q6HR .XX Last administered on 01/19/18at 05:37; Start 12/27/17 at 12:00; Stop 01/19/18 at 09:00; Status DC Levofloxacin/ Dextrose 100 ml @ 100 mls/hr Q24H IV Last administered on at 20:07; Start 01/01/18 at 20:00; Stop 01/02/18 at 13:32; Status DC Levofloxacin (Levaquin) 750 mg DAILY PO Last administered on 01/02/18at 20:43; Start 01/02/18 at 20:00; Stop 01/03/18 at 08:11; Status DC Escitalopram Oxalate (Lexapro) 10 mg DAILY PEG Last administered on 01/31/18at 09:16; Start 01/02/18 at 17:15 Levofloxacin (Levaquin) 750 mg Q24H PEG ; Start 01/03/18 at 08:15; Stop at 08:15; Status DC Levofloxacin (Levaquin) 750 mg Q24H PEG Last administered on 01/16/18at 21:33; Start 01/03/18 at 20:00; Stop 01/16/18 at 21:00; Status DC Gadodiamide (Omniscan Pf Inj) 10 ml STK-MED ONCE IVCONTRAST Last administered on 01/06/18 09:20; Start 01/06/18 at 09:20; Stop 01/06/18 at 09:21; Status DC Metronidazole (Flagyl) 500 mg Q8H PO Last administered on 01/19/18at 02:26; Start 01/09/18 at 10:00; Stop 01/19/18 at 08:59; Status DC Diatrizoate Meglum/ Diatrizoate Sod ( Gastroview Liq) 18 ml ONCE ONCE PO Last administered on 01/09/18at 12:26; Start 01/09/18 at 09:20; Stop 01/09/18 at 10: 26; Status DC Potassium Bicarb/ Potassium Chloride (K-Lyte Cl Eff) 25 meq ONCE ONCE PO Last administered on 01/09/18 17:42; Start 01/09/18 at 16:00; Stop 01/09/18 at 16: 01; Status DC Iohexol (Omnipaque 350 Inj) 74 ml STK-MED ONCE IVCONTRAST Last administered on 01/09/18 19:04; Start 01/09/18 at 19:03; Stop 01/09/18 at 19:04; Status DC Gadodiamide (Omniscan Pf Inj) 10 ml STK-MED ONCE IVCONTRAST Last administered on 01/11/18 09:11; Start 01/11/18 at 09:11; Stop 01/11/18 at 09:12; Status DC Heparin Sodium (Porcine) (Heparin Inj) 5,000 units Q12HR SQ Last administered on 01/31/18at 20:36; Start 01/13/18 at 09:00 Lactobacillus Acidophilus (Lactinex Pkt) 1 gm TID PO Last administered on at 16:35; Start 01/12/18 at 18:00; Stop 01/19/18 at 08:59; Status DC Sodium Hypochlorite (Dakin'S 0.125% Soln) 50 ml DAILY TOPICAL Last administered on 01/31/18at 09:15; Start 01/13/18 at 20:00 Iohexol (Omnipaque 350 Inj) 15 ml STK-MED ONCE G-TUBE Last administered on 3/15 /18at 17:42; Start 01/18/18 at 17:42; Stop 01/18/18 at 17:43; Status DC Lactobacillus Acidophilus (Lactinex Pkt) 1 gm TID PEG Last administered on 01/19at 16:52; Start 01/19/18 at 09:00; Stop 01/19/18 at 16:58; Status DC Metronidazole (Flagyl) 500 mg Q8H PEG Last administered on 01/31/18at 23:53; Start 01/19/18 at 09:00; Stop 02/05/18 at 23:00 Nifedipine (Procardia) 40 mg Q6HR PEG Last administered on 01/24/18at 17:14; Start 01/19/18 at 12:00; Stop 01/24/18 at 23:03; Status DC Oxycodone/ Acetaminophen (Percocet 5-325 Mg) 1 tab Q6H PRN PEG PAIN 3 TO 5 Last administered on 01/24/18at 09:21; Start 01/19/18 at 09:15; Stop 01/25/18 at 15:39; Status DC Oxycodone/ Acetaminophen (Percocet 10-325 Mg) 1 tab Q6H PRN PEG PAIN 6-10 Last administered on 01/21/18at 05:34; Start 01/19/18 at 09:15; Stop 01/25/18 at 15:39 ; Status DC Polyethylene Glycol (Miralax) 17 gm DAILY PRN PEG SEVERE CONSTIPATION; Start at 09:15 Hydrochlorothiazide (Hydrodiuril) 25 mg DAILY PEG Last administered on at 09:10; Start 01/19/18 at 09:03 Levofloxacin (Levaquin) 750 mg DAILY PO Last administered on 01/19/18at 16:51; Start 01/19/18 at 12:00; Stop 01/19/18 at 17:01; Status DC Fluconazole (Diflucan) 100 mg DAILY PO ; Start 01/20/18 at 09:00; Stop 01/20/18 at 09:00; Status DC Fluconazole (Diflucan) 200 mg ONCE ONCE PO Last administered on 01/19/18at 16: 51; Start 01/19/18 at 15:00; Stop 01/19/18 at 15:01; Status DC Lactobacillus Acidophilus (Lactinex) 1 tab TID PEG Last administered on at 17:32; Start 01/19/18 at 18:00 Fluconazole (Diflucan) 100 mg DAILY PEG Last administered on 01/31/18at 09:17; Start 01/20/18 at 09:00; Stop 02/03/18 at 08:59 Levofloxacin (Levaquin) 750 mg DAILY@1200 PEG Last administered on 01/31/18at 12 :29; Start 01/20/18 at 12:00; Stop 02/21/18 at 11:59 Sodium Chloride 1,000 ml @ 50 mls/hr Q20H IV Last administered on 01/26/18at 09 :46; Start 01/20/18 at 09:00; Stop 01/26/18 at 20:43; Status DC Nifedipine (Procardia) 40 mg Q8HR PEG Last administered on 02/01/18at 05:35; Start 01/25/18 at 06:00 Potassium Chloride 100 ml @ 100 mls/hr Q1H IV Last administered on 01/25/18at 18:04; Start 01/25/18 at 16:00; Stop 01/25/18 at 18:59; Status DC Potassium Bicarb/ Potassium Chloride (K-Lyte Cl Eff) 25 meq ONCE ONCE PEG Last administered on 01/25/18at 17:15; Start 01/25/18 at 15:45; Stop 01/25/18 at 15:48; Status DC Nystatin (Mycostatin Liq) 2.5 ml QID SWISH-SPIT Last administered on at 17:11; Start 01/26/18 at 21:00; Stop 01/29/18 at 20:59; Status DC A/P Problem List: (1) Major neurocognitive disorder ICD Code: F03.90 - Unspecified dementia without behavioral disturbance (2) Hemiparesis ICD Code: G81.90 - Hemiplegia, unspecified affecting unspecified side Status: Acute (3) Intracranial hemorrhage ICD Code: I62.9 - Nontraumatic intracranial hemorrhage, unspecified Status: Chronic (4) Aphasia ICD Code: R47.01 - Aphasia Assessment and Plan 62-year-old female with history of hemorrhagic stroke and resulting neurocognitive decline. Status post hemorrhagic CVA, new acute and subacute stroke with chronic right hemiplegia and aphasia. Questionable new facial droop on 01/10; Brain MRI 01/11 showed acute to subacute left thalamic infarct with mild hemorrhagic component in patient with previous history of relatively large left thalamic CVA Neuro and neurosurgery consulted; no surgical intervention needed. Agreed to pharmacologic prophylaxis Facial droop improved UTI Ctx growing Enterobacter aerogenes. Patient received Levaquin x 14 days (01/03-) Repeat urinalysis showed Yenifer anticoagulates negative staph. Continue Diflucan until February 03. Cruz catheter placed. Pt remains afebrile Vomiting -Changed to feeding tube continuous, awaiting dietary consult, resolved. Stage IV sacral pressure ulcer MRI showing bony edema and marrow replacement concerning for osteomyelitis; ID following, continue Levaquin and Flagyl until February Wound care following, S/P bedside debridement 01/11 History of hemorrhagic CVA Continue PT, OT, and ST Poor prognosis. Patient does not participate well with therapy Palliative care following Dysphagia Due to hemorrhagic stroke Status post PEG placement on 05/09/17, PEG tube out 01/18/2018, consult invasive radiology for PEG tube reinsertion, medically necessary. Continue tube feedings HTN Continue nifedipine 40 mg Q6H, Apresoline 50 mg Q6H, Metoprolol 100 mg BID, HCTZ 25 mg Daily Vasotec IV PRN, Clonidine PRN Hyperglycemia Glucerna for tube feeds Follow blood sugars intermittently Xeroderma on bilateral feet Lac-Hydrin 12% Lotion continued Depression Continue Lexapro 10 mg via PEG daily Nutrition Tube feeds changed to Glucerna 1.5 CONTINUOUS AT 40ML PER HOUR, bolus feeding with Tyshawn DVT Prophylaxis Heparin (cleared by neurosurgery) Discharge Planning Patient was homeless prior to admit Poor access for inpatient rehabilitation Family desires aggressive measures for therapy and placement Independent funding unavailable for placement Long-term prognosis is poor No significant capacity for regaining full functionality Palliative care following Discharge Planning Patient was homeless prior to admit Poor access for inpatient rehabilitation Family desires aggressive measures for therapy and placement Independent funding unavailable for placement Long-term prognosis is poor No significant capacity for regaining full functionality Palliative care following Very poor prognosis. Patient does not display any meaningful involvement with therapy. Difficult DC. Awaiting placement Harry Vargas DO Feb 01, 2018 10:08
[2018-02-01] MEDS: HEPARIN SODIUM - SQ 10,000 UNITS/ML VIAL SQ SCH ×2 (10:09→21:06)
[2018-02-01] MEDS: LANSOPRAZOLE SOLUTAB 30 MG TAB G-TUBE SCH (10:09)
[2018-02-01] MEDS: HYDROCHLOROTHIAZIDE 25 MG TAB PEG SCH (10:09)
[2018-02-01] MEDS: METOPROLOL TARTRATE 25 MG TAB PEG SCH ×2 (10:09→21:07)
[2018-02-01] MEDS: metroNIDAZOLE 500 MG TAB PEG SCH ×2 (10:11→17:53)
--- NOTE | 2018-02-01 15:51 | PD.WCN.NOT ---
Wound Consult Description: Follow up of sacral wound Communicated with: OLU Castro and Doctor Andrew Recommendation: Please refer to current wound care orders Additional Information: Patient seen on 4th floor [facility] care unit by junior copywriter,and Jana RAINES. Patient alert in bed nonverbal.Patient required 2 person assist to reposition patient Right side.Dressing removed from coccyx to reveal improved stage 4 pressure injury measuring 4.3cm x 3 cm x 1.2cm with undermining circumferentially with max depth @ 12 O'clock measuring 2.4cm.Wound base is ~50 % red non granulation tissue ~40% fascia, and ~10% bone .Wound drainage is minimal and sero-sanguinous without odor. Wound cleansed with normal saline Santyl 2mm thick to wound base and quarter strength Dakin moist fluffed gauze loosely packed in wound then covered with boarder gauze.Calazime skin protectant paste was applied to periwound.Cavilon skin barrier film was applied before applying bordered gauze dressing signed and dated .Patient was repositioned off bottom with pillow in place for support. Romelia Liz [facility] Feb 01, 2018 15:51
[2018-02-01] MEDS: hydrALAZINE HCL 25 MG TAB PEG PRN (17:57)
[2018-02-01] MEDS ORDERED: cloNIDine HCL 0.1 MG TAB PEG PRN (22:00)
[2018-02-02] VITALS: BP 90/65; PULSE 85; RESP 18; TEMP 99.3; O2SAT 97
[2018-02-02] MEDS: metroNIDAZOLE 500 MG TAB PEG SCH ×3 (01:19→17:16)
[2018-02-02 04:00] VITALS: BP 100/71; PULSE 85; RESP 18; TEMP 99; O2SAT 99
[2018-02-02] MEDS: hydrALAZINE HCL 100 MG TAB PEG SCH ×3 (05:08→21:49)
[2018-02-02] MEDS: FREE WATER G-TUBE SCH ×3 (05:09→17:17)
[2018-02-02] MEDS: NIFEdipine 20 MG CAP PEG SCH ×3 (05:09→21:49)
[2018-02-02 08:00] VITALS: BP 98/64; PULSE 110; RESP 20; TEMP 98.9; O2SAT 96
[2018-02-02] MEDS: LANSOPRAZOLE SOLUTAB 30 MG TAB G-TUBE SCH (09:00)
[2018-02-02] MEDS: METOPROLOL TARTRATE 25 MG TAB PEG SCH ×3 (09:00→21:49)
[2018-02-02] MEDS: HYDROCHLOROTHIAZIDE 25 MG TAB PEG SCH ×2 (09:00→09:54)
[2018-02-02] MEDS: ESCITALOPRAM OXALATE 10 MG TAB PEG SCH (09:54)
[2018-02-02] MEDS: LACTOBACILLUS ACIDOPHILUS TAB PEG SCH ×3 (09:54→17:16)
[2018-02-02] MEDS: FLUCONAZOLE 100 MG TAB PEG SCH (09:54)
[2018-02-02] MEDS: HEPARIN SODIUM - SQ 10,000 UNITS/ML VIAL SQ SCH ×2 (09:55→21:48)
[2018-02-02] MEDS: COLLAGENASE OINT 30 GM TUBE TOPICAL SCH (09:56)
[2018-02-02] MEDS: LACTIC ACID (AMMONIUM LACTATE) 12% LOTION 225 GM BTL TOPICAL SCH ×2 (09:56→21:57)
[2018-02-02] MEDS: SODIUM HYPOCHLORITE 0.125% 500 ML BTL TOPICAL SCH (09:56)
[2018-02-02 12:00] VITALS: BP 100/74; PULSE 84; RESP 20; TEMP 99; O2SAT 97
[2018-02-02] MEDS: LEVOFLOXACIN 750 MG TAB PEG SCH (12:06)
--- NOTE | 2018-02-02 12:58 | HHI.PR ---
Subjective Remarks content management specialist Notes: Admission date 04/10/17 Middle-aged very pleasant female brought in by ambulance after being found in a park sitting next to a bench with altered mental status. Unknown time of onset. Patient was found by children playing in the park. Upon EMS arrival they noted right-sided weakness with a leftward gaze. Patient is nonverbal, she is following commands and is moving her left upper and left lower extremity. EKG was performed in the field and shows ST elevations in V1 through V3 with ST depressions and T-wave inversions in V5 and V6, therefore STEMI alert was also called by EMS. Patient was also notably hypertensive with blood pressures of 250s over 150s. Upon arrival to the emergency department the patient is awake, nonverbal, follows commands, protecting her airway, is able to move her left arm and left leg, however is unable to move her right arm and right leg. Patient was started on a Cardene drip for suspected intracranial hemorrhage and promptly taken to CT scan. At 8:05 PM case was discussed by with on-call basting marker Dr. Quarles who agrees that this is most likely an intracranial hemorrhage based on clinical presentation, therefore STEMI alert was not initiated. CT of the head confirmed thalamic bleed with IVH extension. 02/02: Stable seen in her bedroom no changes to anterior assessment, no nausea, vomit or diarrhea. non verbal. Objective Vital Signs Date Time Temp Pulse Resp B/P (MAP) Pulse Ox O2 Delivery O2 Flow Rate FiO2 02/02/18 04:00 99.0 85 18 100/71 (81) 99 02/02/18 00:00 99.3 85 18 90/65 (73) 97 02/01/18 20:00 99.2 89 18 146/103 (117) 97 02/01/18 18:43 161/108 (125) 02/01/18 16:00 98.2 92 14 168/110 (129) 99 I/O 02/01/18 02/01/18 02/01/18 02/02/18 02/02/18 02/02/18 07:00 15:00 23:00 07:00 15:00 23:00 Intake Total 600 ml 880 ml 893 ml Output Total 401 ml 1002 ml 451 ml Balance 199 ml -122 ml 442 ml Tube Feeding 400 ml 480 ml 493 ml Other 200 ml 400 ml 400 ml Output Urine Total 400 ml 1000 ml 450 ml Stool Total 1 ml 2 ml 1 ml Result Diagram: 01/29/18 1250 Imaging Last Impressions Head CT 01/20/18 0000 Signed Impressions: Service Date/Time: Sunday, January 21, 2018 16:13 - CONCLUSION: 1. Small area of encephalomalacia with some surrounding hemorrhage in the left basal ganglia most consistent with an area of hemorrhagic infarct. This is stable compared to previous exams. 2. Cortical atrophy and microvascular ischemic demyelinative change. Timmy Dumas MD Chest X-Ray 01/19/18 0000 Signed Impressions: Service Date/Time: Friday, January 19, 2018 17:12 - CONCLUSION: Trace left base atelectasis. Hu Henderson MD Gastrostomy Tube Placement 01/18/18 0000 Signed Impressions: Service Date/Time: January 16:41 - CONCLUSION: Uncomplicated gastrostomy tube replacement through an existing tract. Timmy Dumas MD Brain MRI 01/11/18 0000 Signed Impressions: Service Date/Time: January 08:45 - CONCLUSION: 1. Focal area of restricted diffusion in the left thalmus characteristic of an acute to subacute infarct. 2. GRE images demonstrate subacute hemorrhage associated with the infarct in the left thalamus. 3. GRE images also demonstrate punctate areas of microhemorrhage noted in the deep right mid parietal lobe, right occipital lobe and bilateral basal ganglia regions, left greater than right. 4. Diffuse bilateral cortical atrophy and chronic white matter changes. Luciano Morales MD Abdomen/Pelvis CT 01/09/18 0000 Signed Impressions: Service Date/Time: Tuesday, January 09, 2018 18:48 - CONCLUSION: 1. There is a sacral decubitus wound/ulcer which extends to the sacrum. Prior MRI demonstrated abnormal sacrum in the inferior aspect of the sacrum and coccyx. There is also presacral edema. These findings are highly suspicious for osteomyelitis. 2. Nonacute findings include 3 mm nonobstructing right renal stone and multi-fibroid uterus. Hu Cuenca MD Sacrum/Coccyx MRI 01/06/18 0000 Signed Impressions: Service Date/Time: Saturday, January 06, 2018 08:30 - CONCLUSION: Large decubitus ulcer posteriorly with not only bony edema and marrow replacement concerning for osteomyelitis but it extends to the presacral fat is well where there is marked enhancement and fluid on the T2-weighted sequences. The coccygeal involvement is at least 3.5 cm in length. Eliud Du MD Abdomen X-Ray 12/13/17 0000 Signed Impressions: Service Date/Time: Wednesday, December 13, 2017 14:17 - CONCLUSION: PEG tube in stomach.. Harry Dumas MD FACR Upper Extremity Ultrasound 11/06/17 0000 Signed Impressions: Service Date/Time: Monday, November 06, 2017 14:17 - CONCLUSION: Normal examination. Kelby Perez MD Pelvis CT 10/13/17 0000 Signed Impressions: Service Date/Time: Friday, October 13, 2017 12:02 - CONCLUSION: 1. Decubitus ulcer with small abscess in the right posterior perineal region measuring 3.1 x 4.6 cm. There is also a small abscess posterior and to the left of the rectum measuring 3.2 x 2.3 cm. Jann Weber MD Neck CTA 04/10/17 0000 Signed Impressions: Service Date/Time: Monday, April 10, 2017 22:28 - CONCLUSION: The internal carotid arteries are normal bilaterally. No significant atherosclerotic disease is noted. Eliud Du MD Head CTA 04/10/17 0000 Signed Impressions: Service Date/Time: Monday, April 10, 2017 22:50 - CONCLUSION: Mild dilatation of the basilar tip without discrete aneurysm. Some narrowing of the left middle cerebral branch after the bifurcation. Prominent left thalamic hemorrhage. Eliud Du MD Procedures Peg Tube placed 05/08/17 (Dr. De Los Santos) Other Results Laboratory Tests Test 04/10/17 21:04 04/10/17 23:30 04/11/17 10:31 04/14/17 20:01 Urine Opiates Screen NEG Urine Barbiturates Screen NEG Urine Amphetamines Screen NEG Urine Benzodiazepines Screen NEG Urine Cocaine Screen NEG Urine Cannabinoids Screen NEG Nasal Screen MRSA (PCR) MRSA NOT DETECTED Troponin I 0.03 NG/ML Triglycerides Level 54 MG/DL Cholesterol Level 164 MG/DL LDL Cholesterol 81 MG/DL HDL Cholesterol 72.5 MG/DL Cholesterol/HDL Ratio 2.26 RATIO Vitamin B12 Level 228 PG/ML Folate 8.6 NG/ML Hepatitis A IgM Antibody NEGATIVE Hepatitis B Surface Antigen NEGATIVE Hepatitis B Core IgM Antibody NEGATIVE Hepatitis C Antibody NEGATIVE Test 04/19/17 04:19 05/08/17 07:53 05/28/17 13:00 06/27/17 17:30 Activated Partial Thromboplast Time 29.2 SEC Prothrombin Time 11.4 SEC Prothromb Time International Ratio 1.0 RATIO Urine Collection Type CATH Urine Collection Time 1300 Clue Cells (Wet Prep) NONE SEEN Vaginal Trichomonas (Wet Prep) NONE SEEN Vaginal Yeast (Wet Prep) NONE SEEN Test 06/28/17 04:50 10/12/17 05:40 10/13/17 06:00 10/14/17 09:10 Chlamydia trachomatis DNA (PCR) NOT DETECTED Neisseria gonorrhoeae DNA (PCR) NOT DETECTED Platelet Estimate NORMAL Platelet Morphology Comment NORMAL Red Cell Morphology Comment NORMAL Direct Bilirubin 0.2 MG/DL Indirect Bilirubin 0.2 MG/DL Lactic Acid Level 0.8 mmol/L Test 10/14/17 13:30 10/16/17 21:30 10/17/17 16:30 10/20/17 13:05 Stool C. difficile Toxin (PCR) NEGATIVE Stl C. difficile Toxin Epiderm 027 PRESUMPTIVE NEGATIVE Vancomycin Level Trough 15.7 MCG/ML Total Creatine Kinase 55 U/L Transferrin 148 MG/DL Test 11/16/17 05:17 12/04/17 11:10 12/08/17 11:00 12/23/17 08:47 Differential Total Cells Counted 100 Neutrophils % (Manual) 26 % Lymphocytes % 61 % Monocytes % 8 % Eosinophils % 5 % Neutrophils # (Manual) 0.9 TH/MM3 Prealbumin 14 MG/DL Urine Amorphous Sediment FEW Hemoglobin A1c 5.2 % Blood Urea Nitrogen 15 MG/DL Creatinine 0.36 MG/DL Random Glucose 111 MG/DL Total Protein 7.2 GM/DL Albumin 3.0 GM/DL Calcium Level 9.0 MG/DL Phosphorus Level 2.7 MG/DL Magnesium Level 2.4 MG/DL Alkaline Phosphatase 71 U/L Aspartate Amino Transf (AST/SGOT) 19 U/L Alanine Aminotransferase (ALT/SGPT) 16 U/L Total Bilirubin 0.2 MG/DL Sodium Level 140 MEQ/L Potassium Level 3.9 MEQ/L Chloride Level 103 MEQ/L Carbon Dioxide Level 31.3 MEQ/L Free Thyroxine 1.88 NG/DL Thyroid Stimulating Hormone 3rd Gen 1.270 uIU/ML Test 01/01/18 20:36 01/10/18 12:59 01/17/18 18:00 01/27/18 12:08 Urine WBC Clumps MANY Urine Calcium Oxalate Crystals OCC /hpf Urine Mucus MOD /lpf Erythrocyte Sedimentation Rate 48 mm/hr Urine Color YELLOW Urine Turbidity HAZY Urine pH 7.5 Urine Specific [place] 1.015 Urine Protein 100 mg/dL Urine Glucose (UA) NEG mg/dL Urine Ketones NEG mg/dL Urine Occult Blood SMALL Urine Nitrite NEG Urine Bilirubin NEG Urine Urobilinogen LESS THAN 2.0 MG/DL Urine Leukocyte Esterase LARGE Urine RBC 3 /hpf Urine WBC 52 /hpf Urine Squamous Epithelial Cells 1 /hpf Urine Transitional Epithelial Cells 1 /hpf Urine Bacteria MOD /hpf Urine Hyaline Casts 9 /lpf Microscopic Urinalysis Comment CATH-CULTURE IND Blood Urea Nitrogen 8 MG/DL Creatinine 0.34 MG/DL Random Glucose 91 MG/DL Albumin 3.2 GM/DL Calcium Level 9.1 MG/DL Phosphorus Level 2.9 MG/DL Magnesium Level 2.2 MG/DL Sodium Level 141 MEQ/L Potassium Level 3.9 MEQ/L Chloride Level 103 MEQ/L Carbon Dioxide Level 28.8 MEQ/L Test 01/28/18 07:17 01/28/18 12:09 01/29/18 12:50 Neutrophils (%) (Auto) 39.0 % Lymphocytes (%) (Auto) 37.7 % Monocytes (%) (Auto) 19.0 % Eosinophils (%) (Auto) 3.7 % Basophils (%) (Auto) 0.6 % Neutrophils # (Auto) 1.4 TH/MM3 Lymphocytes # (Auto) 1.4 TH/MM3 Monocytes # (Auto) 0.7 TH/MM3 Eosinophils # (Auto) 0.1 TH/MM3 Basophils # (Auto) 0.0 TH/MM3 CBC Comment DIFF FINAL Differential Comment Blood Urea Nitrogen 11 MG/DL Creatinine 0.40 MG/DL Random Glucose 84 MG/DL Calcium Level 9.2 MG/DL Sodium Level 140 MEQ/L Potassium Level 4.1 MEQ/L Chloride Level 103 MEQ/L Carbon Dioxide Level 29.2 MEQ/L Anion Gap 8 MEQ/L Estimat Glomerular Filtration Rate 195 ML/MIN White Blood Count 4.0 TH/MM3 Red Blood Count 4.45 MIL/MM3 Hemoglobin 11.9 GM/DL Hematocrit 37.1 % Mean Corpuscular Volume 83.4 FL Mean Corpuscular Hemoglobin 26.7 PG Mean Corpuscular Hemoglobin Concent 32.1 % Red Cell Distribution Width 19.3 % Platelet Count 260 TH/MM3 Mean Platelet Volume 9.3 FL Objective Remarks GENERAL: Non verbal. HEAD: Normocephalic. EYES: No scleral icterus. No injection or drainage. NECK: Supple, trachea midline. No JVD. CARDIOVASCULAR: Regular rate and rhythm without murmurs, gallops, or rubs. RESPIRATORY: Breath sounds equal bilaterally. No accessory muscle use. GASTROINTESTINAL: Abdomen soft, non-tender, nondistended. PEG tube in place without leakage. MUSCULOSKELETAL: No cyanosis, or edema. BACK: Nontender without obvious deformity. No CVA tenderness. Medications and IVs Current Medications Medications (Trade) Dose Ordered Sig/Reymundo Route Start Time Stop Time Status Last Admin (Dulcolax Supp) 10 mg DAILY PRN RECTAL 04/10/17 22:00 (Lac-Hydrin 12% Lotion) 1 applic BID TOPICAL 05/04/17 14:00 02/02/18 09:56 (Prevacid Odt) 30 mg DAILY G-TUBE 05/10/17 09:00 02/01/18 10:09 (Apresoline) 25 mg Q4HR PRN PEG 05/18/17 14:45 02/01/18 17:57 (Zofran Liq) 4 mg Q6H PRN PEG 05/26/17 10:00 01/27/18 09:37 (Tylenol) 650 mg Q6H PRN PEG 06/16/17 16:00 Future Hold 10/17/17 19:29 (Senna Liq) 8.8 mg DAILY PEG 06/29/17 09:00 Future Hold 10/17/17 10:02 (Pill Splitter) 1 ea UNSCH PRN OTHER 10/17/17 17:45 12/08/17 20:45 (Free Water) 150 ml Q6HR G-TUBE 10/19/17 12:00 02/02/18 12:05 (Lopressor) 25 mg BID PEG 11/24/17 21:00 02/01/18 21:07 (Apresoline) 50 mg Q8HR PEG 12/12/17 22:00 02/02/18 05:09 (Santyl Oint) 1 applic DAILY TOPICAL 12/25/17 17:00 02/02/18 09:56 (Lexapro) 10 mg DAILY PEG 01/02/18 17:15 02/02/18 09:54 (Heparin Inj) 5,000 units Q12HR SQ 01/13/18 09:00 02/02/18 09:55 (Dakin'S 0.125% Soln) 50 ml DAILY TOPICAL 01/13/18 20:00 02/02/18 09:56 (Flagyl) 500 mg Q8H PEG 01/19/18 09:00 02/05/18 23:00 02/02/18 09:54 (Miralax) 17 gm DAILY PRN PEG 01/19/18 09:15 (Hydrodiuril) 25 mg DAILY PEG 01/19/18 09:03 02/01/18 10:09 (Lactinex) 1 tab TID PEG 01/19/18 18:00 02/02/18 12:06 (Diflucan) 100 mg DAILY PEG 01/20/18 09:00 02/03/18 08:59 02/02/18 09:54 (Levaquin) 750 mg DAILY@1200 PEG 01/20/18 12:00 02/21/18 11:59 02/02/18 12:06 (Procardia) 40 mg Q8HR PEG 01/25/18 06:00 02/02/18 05:09 (Catapres) 0.1 mg Q4H PRN PEG 02/01/18 22:00 A/P Assessment and Plan (1) Major neurocognitive disorder ICD Code: F03.90 - Unspecified dementia without behavioral disturbance (2) Hemiparesis ICD Code: G81.90 - Hemiplegia, unspecified affecting unspecified side Status: Acute (3) Intracranial hemorrhage ICD Code: I62.9 - Nontraumatic intracranial hemorrhage, unspecified Status: Chronic (4) Aphasia ICD Code: R47.01 - Aphasia Assessment and Plan 62-year-old female with history of hemorrhagic stroke and resulting neurocognitive decline. Status post hemorrhagic CVA, new acute and subacute stroke with chronic right hemiplegia and aphasia. Questionable new facial droop on 01/10; Brain MRI 01/11 showed acute to subacute left thalamic infarct with mild hemorrhagic component in patient with previous history of relatively large left thalamic CVA Neuro and neurosurgery consulted; no surgical intervention needed. Agreed to pharmacologic prophylaxis Facial droop improved UTI Ctx growing Enterobacter aerogenes. Patient received Levaquin x 14 days (01/03-) Repeat urinalysis showed Yenifer anticoagulates negative staph. Continue Diflucan until February 03. Cruz catheter placed. Pt remains afebrile Vomiting -Changed to feeding tube continuous, awaiting dietary consult, resolved. Stage IV sacral pressure ulcer MRI showing bony edema and marrow replacement concerning for osteomyelitis; ID following, continue Levaquin and Flagyl until February Wound care following, S/P bedside debridement 01/11 History of hemorrhagic CVA Continue PT, OT, and ST Poor prognosis. Patient does not participate well with therapy Palliative care following Dysphagia Due to hemorrhagic stroke Status post PEG placement on 05/09/17, PEG tube out 01/18/2018, consult invasive radiology for PEG tube reinsertion, medically necessary. Continue tube feedings HTN Continue nifedipine 40 mg Q6H, Apresoline 50 mg Q6H, Metoprolol 100 mg BID, HCTZ 25 mg Daily Vasotec IV PRN, Clonidine PRN Hyperglycemia Glucerna for tube feeds Follow blood sugars intermittently Xeroderma on bilateral feet Lac-Hydrin 12% Lotion continued Depression Continue Lexapro 10 mg via PEG daily Nutrition Tube feeds changed to Glucerna 1.5 CONTINUOUS AT 40ML PER HOUR, bolus feeding with Tyshawn DVT Prophylaxis Heparin (cleared by neurosurgery) Discharge Planning Patient was homeless prior to admit Poor access for inpatient rehabilitation Family desires aggressive measures for therapy and placement Independent funding unavailable for placement Long-term prognosis is poor No significant capacity for regaining full functionality Palliative care following Discharge Planning Patient was homeless prior to admit Poor access for inpatient rehabilitation Family desires aggressive measures for therapy and placement Independent funding unavailable for placement Long-term prognosis is poor No significant capacity for regaining full functionality Palliative care following Very poor prognosis. Patient does not display any meaningful involvement with therapy. Difficult DC. 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 Percy Frank MD Feb 02, 2018 12:58
[2018-02-02 16:00] VITALS: BP 113/60; PULSE 89; RESP 20; TEMP 98.9; O2SAT 96
[2018-02-02 20:00] VITALS: BP 124/94; PULSE 96; RESP 16; TEMP 98.2; O2SAT 98
[2018-02-03] VITALS: BP 105/74; PULSE 88; RESP 18; TEMP 98.1; O2SAT 98
[2018-02-03] MEDS: metroNIDAZOLE 500 MG TAB PEG SCH ×3 (00:47→17:48)
[2018-02-03 04:00] VITALS: BP 122/76; PULSE 77; RESP 16; TEMP 97.7; O2SAT 99
[2018-02-03] MEDS: FREE WATER G-TUBE SCH ×4 (06:00→17:49)
[2018-02-03] MEDS: NIFEdipine 20 MG CAP PEG SCH ×3 (06:35→21:14)
[2018-02-03] MEDS: hydrALAZINE HCL 100 MG TAB PEG SCH ×3 (06:35→21:14)
[2018-02-03 08:00] VITALS: BP 100/58; PULSE 90; RESP 20; TEMP 98.9; O2SAT 99
[2018-02-03] MEDS: SODIUM HYPOCHLORITE 0.125% 500 ML BTL TOPICAL SCH (10:07)
[2018-02-03] MEDS: LACTIC ACID (AMMONIUM LACTATE) 12% LOTION 225 GM BTL TOPICAL SCH ×2 (10:07→21:15)
[2018-02-03] MEDS: COLLAGENASE OINT 30 GM TUBE TOPICAL SCH (10:07)
[2018-02-03] MEDS: HYDROCHLOROTHIAZIDE 25 MG TAB PEG SCH (10:08)
[2018-02-03] MEDS: ESCITALOPRAM OXALATE 10 MG TAB PEG SCH (10:08)
[2018-02-03] MEDS: LANSOPRAZOLE SOLUTAB 30 MG TAB G-TUBE SCH (10:08)
[2018-02-03] MEDS: LACTOBACILLUS ACIDOPHILUS TAB PEG SCH ×3 (10:08→17:48)
[2018-02-03] MEDS: HEPARIN SODIUM - SQ 10,000 UNITS/ML VIAL SQ SCH ×2 (10:08→21:14)
[2018-02-03] MEDS: METOPROLOL TARTRATE 25 MG TAB PEG SCH ×2 (10:08→21:14)
[2018-02-03 12:00] VITALS: BP 107/60; PULSE 84; RESP 16; TEMP 97.8; O2SAT 97
[2018-02-03] MEDS: LEVOFLOXACIN 750 MG TAB PEG SCH (12:12)
--- NOTE | 2018-02-03 12:55 | HHI.PR ---
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 Unknown time of onset. Patient was found by children playing in the park. Upon EMS arrival they noted right-sided weakness with a leftward gaze. Patient is nonverbal, she is following commands and is moving her left upper and left lower extremity. EKG was performed in the field and shows ST elevations in V1 through V3 with ST depressions and T-wave inversions in V5 and V6, therefore STEMI alert was also called by EMS. Patient was also notably hypertensive with blood pressures of 250s over 150s. Upon arrival to the emergency department the patient is awake, nonverbal, follows commands, protecting her airway, is able to move her left arm and left leg, however is unable to move her right arm and right leg. Patient was started on a Cardene drip for suspected intracranial hemorrhage and promptly taken to CT scan. At 8:05 PM case was discussed by with on-call switching operator Dr. Quarles who agrees that this is most likely an intracranial hemorrhage based on clinical presentation, therefore STEMI alert was not initiated. CT of the head confirmed thalamic bleed with IVH extension. 02/03: :Seen in her bedroom, discussed with nurse, has Dyspepsia and gas production asked for Simethicone I Agree. No nausea, vomit or diarrhea. Objective Vital Signs Date Time Temp Pulse Resp B/P (MAP) Pulse Ox O2 Delivery O2 Flow Rate FiO2 02/03/18 04:00 97.7 77 16 122/76 (91) 99 02/03/18 00:00 98.1 88 18 105/74 (84) 98 02/02/18 20:00 98.2 96 16 124/94 (104) 98 02/02/18 16:00 98.9 89 20 113/60 (77) 96 I/O 02/02/18 02/02/18 02/02/18 02/03/18 02/03/18 02/03/18 07:00 15:00 23:00 07:00 15:00 23:00 Intake Total 893 ml 1030 ml 1083 ml Output Total 451 ml 602 ml 1152 ml Balance 442 ml 428 ml -69 ml Tube Feeding 493 ml 480 ml 523 ml Other 400 ml 550 ml 560 ml Output Urine Total 450 ml 600 ml 1150 ml Stool Total 1 ml 2 ml 2 ml Imaging Last Impressions Head CT 01/20/18 0000 Signed Impressions: Service Date/Time: Sunday, January 21, 2018 16:13 - CONCLUSION: 1. Small area of encephalomalacia with some surrounding hemorrhage in the left basal ganglia most consistent with an area of hemorrhagic infarct. This is stable compared to previous exams. 2. Cortical atrophy and microvascular ischemic demyelinative change. Timmy Dumas MD Chest X-Ray 01/19/18 0000 Signed Impressions: Service Date/Time: Friday, January 19, 2018 17:12 - CONCLUSION: Trace left base atelectasis. Hu Henderson MD Gastrostomy Tube Placement 01/18/18 0000 Signed Impressions: Service Date/Time: January 16:41 - CONCLUSION: Uncomplicated gastrostomy tube replacement through an existing tract. Timmy Dumas MD Brain MRI 01/11/18 0000 Signed Impressions: Service Date/Time: January 08:45 - CONCLUSION: 1. Focal area of restricted diffusion in the left thalmus characteristic of an acute to subacute infarct. 2. GRE images demonstrate subacute hemorrhage associated with the infarct in the left thalamus. 3. GRE images also demonstrate punctate areas of microhemorrhage noted in the deep right mid parietal lobe, right occipital lobe and bilateral basal ganglia regions, left greater than right. 4. Diffuse bilateral cortical atrophy and chronic white matter changes. Luciano Morales MD Abdomen/Pelvis CT 01/09/18 0000 Signed Impressions: Service Date/Time: Tuesday, January 09, 2018 18:48 - CONCLUSION: 1. There is a sacral decubitus wound/ulcer which extends to the sacrum. Prior MRI demonstrated abnormal sacrum in the inferior aspect of the sacrum and coccyx. There is also presacral edema. These findings are highly suspicious for osteomyelitis. 2. Nonacute findings include 3 mm nonobstructing right renal stone and multi-fibroid uterus. Hu Cuenca MD Sacrum/Coccyx MRI 01/06/18 0000 Signed Impressions: Service Date/Time: Saturday, January 06, 2018 08:30 - CONCLUSION: Large decubitus ulcer posteriorly with not only bony edema and marrow replacement concerning for osteomyelitis but it extends to the presacral fat is well where there is marked enhancement and fluid on the T2-weighted sequences. The coccygeal involvement is at least 3.5 cm in length. Eliud Du MD Abdomen X-Ray 12/13/17 0000 Signed Impressions: Service Date/Time: Wednesday, December 13, 2017 14:17 - CONCLUSION: PEG tube in stomach.. Harry Dumas MD FACR Upper Extremity Ultrasound 11/06/17 0000 Signed Impressions: Service Date/Time: Monday, November 06, 2017 14:17 - CONCLUSION: Normal examination. K. Byron Perez MD Pelvis CT 10/13/17 0000 Signed Impressions: Service Date/Time: Friday, October 13, 2017 12:02 - CONCLUSION: 1. Decubitus ulcer with small abscess in the right posterior perineal region measuring 3.1 x 4.6 cm. There is also a small abscess posterior and to the left of the rectum measuring 3.2 x 2.3 cm. Jann Weber MD Neck CTA 04/10/17 0000 Signed Impressions: Service Date/Time: Monday, April 10, 2017 22:28 - CONCLUSION: The internal carotid arteries are normal bilaterally. No significant atherosclerotic disease is noted. Eliud Du MD Head CTA 04/10/17 0000 Signed Impressions: Service Date/Time: Monday, April 10, 2017 22:50 - CONCLUSION: Mild dilatation of the basilar tip without discrete aneurysm. Some narrowing of the left middle cerebral branch after the bifurcation. Prominent left thalamic hemorrhage. Eliud Du MD Procedures Peg Tube placed 05/08/17 (Dr. De Los Santos) Other Results Laboratory Tests Test 04/10/17 21:04 04/10/17 23:30 04/11/17 10:31 04/14/17 20:01 Urine Opiates Screen NEG Urine Barbiturates Screen NEG Urine Amphetamines Screen NEG Urine Benzodiazepines Screen NEG Urine Cocaine Screen NEG Urine Cannabinoids Screen NEG Nasal Screen MRSA (PCR) MRSA NOT DETECTED Troponin I 0.03 NG/ML Triglycerides Level 54 MG/DL Cholesterol Level 164 MG/DL LDL Cholesterol 81 MG/DL HDL Cholesterol 72.5 MG/DL Cholesterol/HDL Ratio 2.26 RATIO Vitamin B12 Level 228 PG/ML Folate 8.6 NG/ML Hepatitis A IgM Antibody NEGATIVE Hepatitis B Surface Antigen NEGATIVE Hepatitis B Core IgM Antibody NEGATIVE Hepatitis C Antibody NEGATIVE Test 04/19/17 04:19 05/08/17 07:53 05/28/17 13:00 06/27/17 17:30 Activated Partial Thromboplast Time 29.2 SEC Prothrombin Time 11.4 SEC Prothromb Time International Ratio 1.0 RATIO Urine Collection Type CATH Urine Collection Time 1300 Clue Cells (Wet Prep) NONE SEEN Vaginal Trichomonas (Wet Prep) NONE SEEN Vaginal Yeast (Wet Prep) NONE SEEN Test 06/28/17 04:50 10/12/17 05:40 10/13/17 06:00 10/14/17 09:10 Chlamydia trachomatis DNA (PCR) NOT DETECTED Neisseria gonorrhoeae DNA (PCR) NOT DETECTED Platelet Estimate NORMAL Platelet Morphology Comment NORMAL Red Cell Morphology Comment NORMAL Direct Bilirubin 0.2 MG/DL Indirect Bilirubin 0.2 MG/DL Lactic Acid Level 0.8 mmol/L Test 10/14/17 13:30 10/16/17 21:30 10/17/17 16:30 10/20/17 13:05 Stool C. difficile Toxin (PCR) NEGATIVE Stl C. difficile Toxin Epiderm 027 PRESUMPTIVE NEGATIVE Vancomycin Level Trough 15.7 MCG/ML Total Creatine Kinase 55 U/L Transferrin 148 MG/DL Test 11/16/17 05:17 12/04/17 11:10 12/08/17 11:00 12/23/17 08:47 Differential Total Cells Counted 100 Neutrophils % (Manual) 26 % Lymphocytes % 61 % Monocytes % 8 % Eosinophils % 5 % Neutrophils # (Manual) 0.9 TH/MM3 Prealbumin 14 MG/DL Urine Amorphous Sediment FEW Hemoglobin A1c 5.2 % Blood Urea Nitrogen 15 MG/DL Creatinine 0.36 MG/DL Random Glucose 111 MG/DL Total Protein 7.2 GM/DL Albumin 3.0 GM/DL Calcium Level 9.0 MG/DL Phosphorus Level 2.7 MG/DL Magnesium Level 2.4 MG/DL Alkaline Phosphatase 71 U/L Aspartate Amino Transf (AST/SGOT) 19 U/L Alanine Aminotransferase (ALT/SGPT) 16 U/L Total Bilirubin 0.2 MG/DL Sodium Level 140 MEQ/L Potassium Level 3.9 MEQ/L Chloride Level 103 MEQ/L Carbon Dioxide Level 31.3 MEQ/L Free Thyroxine 1.88 NG/DL Thyroid Stimulating Hormone 3rd Gen 1.270 uIU/ML Test 01/01/18 20:36 01/10/18 12:59 01/17/18 18:00 01/27/18 12:08 Urine WBC Clumps MANY Urine Calcium Oxalate Crystals OCC /hpf Urine Mucus MOD /lpf Erythrocyte Sedimentation Rate 48 mm/hr Urine Color YELLOW Urine Turbidity HAZY Urine pH 7.5 Urine Specific [place] 1.015 Urine Protein 100 mg/dL Urine Glucose (UA) NEG mg/dL Urine Ketones NEG mg/dL Urine Occult Blood SMALL Urine Nitrite NEG Urine Bilirubin NEG Urine Urobilinogen LESS THAN 2.0 MG/DL Urine Leukocyte Esterase LARGE Urine RBC 3 /hpf Urine WBC 52 /hpf Urine Squamous Epithelial Cells 1 /hpf Urine Transitional Epithelial Cells 1 /hpf Urine Bacteria MOD /hpf Urine Hyaline Casts 9 /lpf Microscopic Urinalysis Comment CATH-CULTURE IND Blood Urea Nitrogen 8 MG/DL Creatinine 0.34 MG/DL Random Glucose 91 MG/DL Albumin 3.2 GM/DL Calcium Level 9.1 MG/DL Phosphorus Level 2.9 MG/DL Magnesium Level 2.2 MG/DL Sodium Level 141 MEQ/L Potassium Level 3.9 MEQ/L Chloride Level 103 MEQ/L Carbon Dioxide Level 28.8 MEQ/L Test 01/28/18 07:17 01/28/18 12:09 01/29/18 12:50 Neutrophils (%) (Auto) 39.0 % Lymphocytes (%) (Auto) 37.7 % Monocytes (%) (Auto) 19.0 % Eosinophils (%) (Auto) 3.7 % Basophils (%) (Auto) 0.6 % Neutrophils # (Auto) 1.4 TH/MM3 Lymphocytes # (Auto) 1.4 TH/MM3 Monocytes # (Auto) 0.7 TH/MM3 Eosinophils # (Auto) 0.1 TH/MM3 Basophils # (Auto) 0.0 TH/MM3 CBC Comment DIFF FINAL Differential Comment Blood Urea Nitrogen 11 MG/DL Creatinine 0.40 MG/DL Random Glucose 84 MG/DL Calcium Level 9.2 MG/DL Sodium Level 140 MEQ/L Potassium Level 4.1 MEQ/L Chloride Level 103 MEQ/L Carbon Dioxide Level 29.2 MEQ/L Anion Gap 8 MEQ/L Estimat Glomerular Filtration Rate 195 ML/MIN White Blood Count 4.0 TH/MM3 Red Blood Count 4.45 MIL/MM3 Hemoglobin 11.9 GM/DL Hematocrit 37.1 % Mean Corpuscular Volume 83.4 FL Mean Corpuscular Hemoglobin 26.7 PG Mean Corpuscular Hemoglobin Concent 32.1 % Red Cell Distribution Width 19.3 % Platelet Count 260 TH/MM3 Mean Platelet Volume 9.3 FL Objective Remarks GENERAL: Non verbal. HEAD: Normocephalic. EYES: No scleral icterus. No injection or drainage. NECK: Supple, trachea midline. No JVD. CARDIOVASCULAR: Regular rate and rhythm without murmurs, gallops, or rubs. RESPIRATORY: Breath sounds equal bilaterally. No accessory muscle use. GASTROINTESTINAL: Abdomen soft, non-tender, nondistended. PEG tube in place without leakage. MUSCULOSKELETAL: No cyanosis, or edema. BACK: Nontender without obvious deformity. No CVA tenderness. Medications and IVs Current Medications Medications (Trade) Dose Ordered Sig/Reymundo Route Start Time Stop Time Status Last Admin (Dulcolax Supp) 10 mg DAILY PRN RECTAL 04/10/17 22:00 (Lac-Hydrin 12% Lotion) 1 applic BID TOPICAL 05/04/17 14:00 02/03/18 10:07 (Prevacid Odt) 30 mg DAILY G-TUBE 05/10/17 09:00 02/03/18 10:08 (Apresoline) 25 mg Q4HR PRN PEG 05/18/17 14:45 02/01/18 17:57 (Zofran Liq) 4 mg Q6H PRN PEG 05/26/17 10:00 01/27/18 09:37 (Tylenol) 650 mg Q6H PRN PEG 06/16/17 16:00 Future Hold 10/17/17 19:29 (Senna Liq) 8.8 mg DAILY PEG 06/29/17 09:00 Future Hold 10/17/17 10:02 (Pill Splitter) 1 ea UNSCH PRN OTHER 10/17/17 17:45 12/08/17 20:45 (Free Water) 150 ml Q6HR G-TUBE 10/19/17 12:00 02/03/18 12:12 (Lopressor) 25 mg BID PEG 11/24/17 21:00 02/03/18 10:08 (Apresoline) 50 mg Q8HR PEG 12/12/17 22:00 02/03/18 06:35 (Santyl Oint) 1 applic DAILY TOPICAL 12/25/17 17:00 02/03/18 10:07 (Lexapro) 10 mg DAILY PEG 01/02/18 17:15 02/03/18 10:08 (Heparin Inj) 5,000 units Q12HR SQ 01/13/18 09:00 02/03/18 10:08 (Dakin'S 0.125% Soln) 50 ml DAILY TOPICAL 01/13/18 20:00 02/03/18 10:07 (Flagyl) 500 mg Q8H PEG 01/19/18 09:00 02/05/18 23:00 02/03/18 10:08 (Miralax) 17 gm DAILY PRN PEG 01/19/18 09:15 (Hydrodiuril) 25 mg DAILY PEG 01/19/18 09:03 02/03/18 10:08 (Lactinex) 1 tab TID PEG 01/19/18 18:00 02/03/18 12:12 (Levaquin) 750 mg DAILY@1200 PEG 01/20/18 12:00 02/21/18 11:59 02/03/18 12:12 (Procardia) 40 mg Q8HR PEG 01/25/18 06:00 02/03/18 06:35 (Catapres) 0.1 mg Q4H PRN PEG 02/01/18 22:00 A/P Assessment and Plan (1) Major neurocognitive disorder ICD Code: F03.90 - Unspecified dementia without behavioral disturbance (2) Hemiparesis ICD Code: G81.90 - Hemiplegia, unspecified affecting unspecified side Status: Acute (3) Intracranial hemorrhage ICD Code: I62.9 - Nontraumatic intracranial hemorrhage, unspecified Status: Chronic (4) Aphasia ICD Code: R47.01 - Aphasia Assessment and Plan 62-year-old female with history of hemorrhagic stroke and resulting neurocognitive decline. Status post hemorrhagic CVA, new acute and subacute stroke with chronic right hemiplegia and aphasia. Questionable new facial droop on 01/10; Brain MRI 01/11 showed acute to subacute left thalamic infarct with mild hemorrhagic component in patient with previous history of relatively large left thalamic CVA Neuro and neurosurgery consulted; no surgical intervention needed. Agreed to pharmacologic prophylaxis Facial droop improved UTI Ctx growing Enterobacter aerogenes. Patient received Levaquin x 14 days (01/03-) Repeat urinalysis showed Yenifer anticoagulates negative staph. Continue Diflucan until February 03. Cruz catheter placed. Pt remains afebrile, last time the Cruz was placed was January 20 Stage IV sacral pressure ulcer MRI showing bony edema and marrow replacement concerning for osteomyelitis; ID following, continue Levaquin and Flagyl until February Wound care following, S/P bedside debridement 01/11 History of hemorrhagic CVA Continue PT, OT, and ST Poor prognosis. Patient does not participate well with therapy Palliative care following Dysphagia Due to hemorrhagic stroke Status post PEG placement on 05/09/17, PEG tube out 01/18/2018, consult invasive radiology for PEG tube reinsertion, medically necessary. Continue tube feedings, added Simethicone. HTN Continue nifedipine 40 mg Q6H, Apresoline 50 mg Q6H, Metoprolol 100 mg BID, HCTZ 25 mg Daily Vasotec IV PRN, Clonidine PRN Hyperglycemia Glucerna for tube feeds Follow blood sugars intermittently Xeroderma on bilateral feet Lac-Hydrin 12% Lotion continued Depression Continue Lexapro 10 mg via PEG daily Nutrition Tube feeds changed to Glucerna 1.5 CONTINUOUS AT 40ML PER HOUR, bolus feeding with Tyshawn DVT Prophylaxis Heparin (cleared by neurosurgery) Very poor prognosis. Patient does not display any meaningful involvement with therapy. Difficult DC. Awaiting placement Discharge Planning Patient was homeless prior to admit Poor access for inpatient rehabilitation Family desires aggressive measures for therapy and placement Independent funding unavailable for placement Long-term prognosis is poor No significant capacity for regaining full functionality Palliative care following Percy Frank MD Feb 03, 2018 12:55
[2018-02-03 16:00] VITALS: BP 98/76; PULSE 60; RESP 18; TEMP 98; O2SAT 99
[2018-02-03] MEDS: SIMETHICONE SUSP DROPS 40 MG/0.6 ML 30 ML BTL PO PRN (17:49)
[2018-02-03 20:00] VITALS: BP 135/97; PULSE 96; RESP 14; TEMP 98.8; O2SAT 98
[2018-02-04] VITALS (7 sets, daily range): BP systolic 106–133; BP diastolic 65–96; PULSE 75–109; RESP 14–20; TEMP 97.9–99.7; O2SAT 96–100
[2018-02-04] MEDS: metroNIDAZOLE 500 MG TAB PEG SCH ×3 (01:00→16:29)
[2018-02-04] MEDS: FREE WATER G-TUBE SCH ×4 (06:00→16:28)
[2018-02-04] MEDS: NIFEdipine 20 MG CAP PEG SCH ×3 (06:00→21:34)
[2018-02-04] MEDS: hydrALAZINE HCL 100 MG TAB PEG SCH ×3 (06:00→21:34)
[2018-02-04] MEDS: METOPROLOL TARTRATE 25 MG TAB PEG SCH ×2 (09:56→21:34)
[2018-02-04] MEDS: SIMETHICONE SUSP DROPS 40 MG/0.6 ML 30 ML BTL PO PRN (09:56)
[2018-02-04] MEDS: ESCITALOPRAM OXALATE 10 MG TAB PEG SCH (09:56)
[2018-02-04] MEDS: LANSOPRAZOLE SOLUTAB 30 MG TAB G-TUBE SCH (09:56)
[2018-02-04] MEDS: COLLAGENASE OINT 30 GM TUBE TOPICAL SCH (09:56)
[2018-02-04] MEDS: LACTOBACILLUS ACIDOPHILUS TAB PEG SCH ×3 (09:56→16:29)
[2018-02-04] MEDS: LACTIC ACID (AMMONIUM LACTATE) 12% LOTION 225 GM BTL TOPICAL SCH ×2 (09:56→21:34)
[2018-02-04] MEDS: SODIUM HYPOCHLORITE 0.125% 500 ML BTL TOPICAL SCH (09:56)
[2018-02-04] MEDS: HYDROCHLOROTHIAZIDE 25 MG TAB PEG SCH (09:57)
[2018-02-04] MEDS: HEPARIN SODIUM - SQ 10,000 UNITS/ML VIAL SQ SCH ×2 (09:57→21:34)
[2018-02-04] MEDS: LEVOFLOXACIN 750 MG TAB PEG SCH (12:53)
--- NOTE | 2018-02-04 14:25 | HHI.PR ---
Subjective Remarks internal communications specialist Notes: Admission date 04/10/17 Middle-aged very pleasant female brought in by ambulance after being found in a park sitting next to a bench with altered mental status. Unknown time of onset. Patient was found by children playing in the park. Upon EMS arrival they noted right-sided weakness with a leftward gaze. Patient is nonverbal, she is following commands and is moving her left upper and left lower extremity. EKG was performed in the field and shows ST elevations in V1 through V3 with ST depressions and T-wave inversions in V5 and V6, therefore STEMI alert was also called by EMS. Patient was also notably hypertensive with blood pressures of 250s over 150s. Upon arrival to the emergency department the patient is awake, nonverbal, follows commands, protecting her airway, is able to move her left arm and left leg, however is unable to move her right arm and right leg. Patient was started on a Cardene drip for suspected intracranial hemorrhage and promptly taken to CT scan. At 8:05 PM case was discussed by with on-call home performance laborer Dr. Quarles who agrees that this is most likely an intracranial hemorrhage based on clinical presentation, therefore STEMI alert was not initiated. CT of the head confirmed thalamic bleed with IVH extension. 02/04: :Stable in her bedroom, discussed with nurse and with her son in the room , no nausea, vomit or diarrhea. Objective Vital Signs Date Time Temp Pulse Resp B/P (MAP) Pulse Ox O2 Delivery O2 Flow Rate FiO2 02/04/18 12:00 98.4 90 14 117/75 (89) 98 02/04/18 08:00 98.8 109 14 113/82 (92) 99 02/04/18 06:13 133/96 (108) 02/04/18 04:00 98.2 90 18 127/93 (104) 100 02/04/18 00:00 97.9 98 20 119/65 (83) 98 02/03/18 20:00 98.8 96 14 135/97 (110) 98 02/03/18 16:00 98.0 60 18 98/76 (83) 99 I/O 02/03/18 02/03/18 02/03/18 02/04/18 02/04/18 02/04/18 07:00 15:00 23:00 07:00 15:00 23:00 Intake Total 1083 ml 1030 ml 1533 ml Output Total 1152 ml 553 ml 300 ml 2 ml Balance -69 ml 477 ml 1233 ml -2 ml Tube Feeding 523 ml 480 ml 933 ml Tube Irrigant 600 ml Other 560 ml 550 ml Output Urine Total 1150 ml 550 ml 300 ml Stool Total 2 ml 3 ml 2 ml # Bowel Movements 1 Imaging Last Impressions Head CT 01/20/18 0000 Signed Impressions: Service Date/Time: Sunday, January 21, 2018 16:13 - CONCLUSION: 1. Small area of encephalomalacia with some surrounding hemorrhage in the left basal ganglia most consistent with an area of hemorrhagic infarct. This is stable compared to previous exams. 2. Cortical atrophy and microvascular ischemic demyelinative change. Timmy Dumas MD Chest X-Ray 01/19/18 0000 Signed Impressions: Service Date/Time: Friday, January 19, 2018 17:12 - CONCLUSION: Trace left base atelectasis. Hu Henderson MD Gastrostomy Tube Placement 01/18/18 0000 Signed Impressions: Service Date/Time: January 16:41 - CONCLUSION: Uncomplicated gastrostomy tube replacement through an existing tract. Timmy Dumas MD Brain MRI 01/11/18 0000 Signed Impressions: Service Date/Time: January 08:45 - CONCLUSION: 1. Focal area of restricted diffusion in the left thalmus characteristic of an acute to subacute infarct. 2. GRE images demonstrate subacute hemorrhage associated with the infarct in the left thalamus. 3. GRE images also demonstrate punctate areas of microhemorrhage noted in the deep right mid parietal lobe, right occipital lobe and bilateral basal ganglia regions, left greater than right. 4. Diffuse bilateral cortical atrophy and chronic white matter changes. Luciano Morales MD Abdomen/Pelvis CT 01/09/18 0000 Signed Impressions: Service Date/Time: Tuesday, January 09, 2018 18:48 - CONCLUSION: 1. There is a sacral decubitus wound/ulcer which extends to the sacrum. Prior MRI demonstrated abnormal sacrum in the inferior aspect of the sacrum and coccyx. There is also presacral edema. These findings are highly suspicious for osteomyelitis. 2. Nonacute findings include 3 mm nonobstructing right renal stone and multi-fibroid uterus. Hu Cuenca MD Sacrum/Coccyx MRI 01/06/18 0000 Signed Impressions: Service Date/Time: Saturday, January 06, 2018 08:30 - CONCLUSION: Large decubitus ulcer posteriorly with not only bony edema and marrow replacement concerning for osteomyelitis but it extends to the presacral fat is well where there is marked enhancement and fluid on the T2-weighted sequences. The coccygeal involvement is at least 3.5 cm in length. Eliud Du MD Abdomen X-Ray 12/13/17 0000 Signed Impressions: Service Date/Time: Wednesday, December 13, 2017 14:17 - CONCLUSION: PEG tube in stomach.. Harry Dumas MD FACR Upper Extremity Ultrasound 11/06/17 0000 Signed Impressions: Service Date/Time: Monday, November 06, 2017 14:17 - CONCLUSION: Normal examination. KLanre Perez MD Pelvis CT 10/13/17 0000 Signed Impressions: Service Date/Time: Friday, October 13, 2017 12:02 - CONCLUSION: 1. Decubitus ulcer with small abscess in the right posterior perineal region measuring 3.1 x 4.6 cm. There is also a small abscess posterior and to the left of the rectum measuring 3.2 x 2.3 cm. Jann Weber MD Neck CTA 04/10/17 0000 Signed Impressions: Service Date/Time: Monday, April 10, 2017 22:28 - CONCLUSION: The internal carotid arteries are normal bilaterally. No significant atherosclerotic disease is noted. Eliud Du MD Head CTA 04/10/17 0000 Signed Impressions: Service Date/Time: Monday, April 10, 2017 22:50 - CONCLUSION: Mild dilatation of the basilar tip without discrete aneurysm. Some narrowing of the left middle cerebral branch after the bifurcation. Prominent left thalamic hemorrhage. Eliud Du MD Procedures Peg Tube placed 05/08/17 (Dr. De Los Santos) Other Results Laboratory Tests Test 04/10/17 21:04 04/10/17 23:30 04/11/17 10:31 04/14/17 20:01 Urine Opiates Screen NEG Urine Barbiturates Screen NEG Urine Amphetamines Screen NEG Urine Benzodiazepines Screen NEG Urine Cocaine Screen NEG Urine Cannabinoids Screen NEG Nasal Screen MRSA (PCR) MRSA NOT DETECTED Troponin I 0.03 NG/ML Triglycerides Level 54 MG/DL Cholesterol Level 164 MG/DL LDL Cholesterol 81 MG/DL HDL Cholesterol 72.5 MG/DL Cholesterol/HDL Ratio 2.26 RATIO Vitamin B12 Level 228 PG/ML Folate 8.6 NG/ML Hepatitis A IgM Antibody NEGATIVE Hepatitis B Surface Antigen NEGATIVE Hepatitis B Core IgM Antibody NEGATIVE Hepatitis C Antibody NEGATIVE Test 04/19/17 04:19 05/08/17 07:53 05/28/17 13:00 06/27/17 17:30 Activated Partial Thromboplast Time 29.2 SEC Prothrombin Time 11.4 SEC Prothromb Time International Ratio 1.0 RATIO Urine Collection Type CATH Urine Collection Time 1300 Clue Cells (Wet Prep) NONE SEEN Vaginal Trichomonas (Wet Prep) NONE SEEN Vaginal Yeast (Wet Prep) NONE SEEN Test 06/28/17 04:50 10/12/17 05:40 10/13/17 06:00 10/14/17 09:10 Chlamydia trachomatis DNA (PCR) NOT DETECTED Neisseria gonorrhoeae DNA (PCR) NOT DETECTED Platelet Estimate NORMAL Platelet Morphology Comment NORMAL Red Cell Morphology Comment NORMAL Direct Bilirubin 0.2 MG/DL Indirect Bilirubin 0.2 MG/DL Lactic Acid Level 0.8 mmol/L Test 10/14/17 13:30 10/16/17 21:30 10/17/17 16:30 10/20/17 13:05 Stool C. difficile Toxin (PCR) NEGATIVE Stl C. difficile Toxin Epiderm 027 PRESUMPTIVE NEGATIVE Vancomycin Level Trough 15.7 MCG/ML Total Creatine Kinase 55 U/L Transferrin 148 MG/DL Test 11/16/17 05:17 12/04/17 11:10 12/08/17 11:00 12/23/17 08:47 Differential Total Cells Counted 100 Neutrophils % (Manual) 26 % Lymphocytes % 61 % Monocytes % 8 % Eosinophils % 5 % Neutrophils # (Manual) 0.9 TH/MM3 Prealbumin 14 MG/DL Urine Amorphous Sediment FEW Hemoglobin A1c 5.2 % Blood Urea Nitrogen 15 MG/DL Creatinine 0.36 MG/DL Random Glucose 111 MG/DL Total Protein 7.2 GM/DL Albumin 3.0 GM/DL Calcium Level 9.0 MG/DL Phosphorus Level 2.7 MG/DL Magnesium Level 2.4 MG/DL Alkaline Phosphatase 71 U/L Aspartate Amino Transf (AST/SGOT) 19 U/L Alanine Aminotransferase (ALT/SGPT) 16 U/L Total Bilirubin 0.2 MG/DL Sodium Level 140 MEQ/L Potassium Level 3.9 MEQ/L Chloride Level 103 MEQ/L Carbon Dioxide Level 31.3 MEQ/L Free Thyroxine 1.88 NG/DL Thyroid Stimulating Hormone 3rd Gen 1.270 uIU/ML Test 01/01/18 20:36 01/10/18 12:59 01/17/18 18:00 01/27/18 12:08 Urine WBC Clumps MANY Urine Calcium Oxalate Crystals OCC /hpf Urine Mucus MOD /lpf Erythrocyte Sedimentation Rate 48 mm/hr Urine Color YELLOW Urine Turbidity HAZY Urine pH 7.5 Urine Specific [place] 1.015 Urine Protein 100 mg/dL Urine Glucose (UA) NEG mg/dL Urine Ketones NEG mg/dL Urine Occult Blood SMALL Urine Nitrite NEG Urine Bilirubin NEG Urine Urobilinogen LESS THAN 2.0 MG/DL Urine Leukocyte Esterase LARGE Urine RBC 3 /hpf Urine WBC 52 /hpf Urine Squamous Epithelial Cells 1 /hpf Urine Transitional Epithelial Cells 1 /hpf Urine Bacteria MOD /hpf Urine Hyaline Casts 9 /lpf Microscopic Urinalysis Comment CATH-CULTURE IND Blood Urea Nitrogen 8 MG/DL Creatinine 0.34 MG/DL Random Glucose 91 MG/DL Albumin 3.2 GM/DL Calcium Level 9.1 MG/DL Phosphorus Level 2.9 MG/DL Magnesium Level 2.2 MG/DL Sodium Level 141 MEQ/L Potassium Level 3.9 MEQ/L Chloride Level 103 MEQ/L Carbon Dioxide Level 28.8 MEQ/L Test 01/28/18 07:17 01/28/18 12:09 01/29/18 12:50 Neutrophils (%) (Auto) 39.0 % Lymphocytes (%) (Auto) 37.7 % Monocytes (%) (Auto) 19.0 % Eosinophils (%) (Auto) 3.7 % Basophils (%) (Auto) 0.6 % Neutrophils # (Auto) 1.4 TH/MM3 Lymphocytes # (Auto) 1.4 TH/MM3 Monocytes # (Auto) 0.7 TH/MM3 Eosinophils # (Auto) 0.1 TH/MM3 Basophils # (Auto) 0.0 TH/MM3 CBC Comment DIFF FINAL Differential Comment Blood Urea Nitrogen 11 MG/DL Creatinine 0.40 MG/DL Random Glucose 84 MG/DL Calcium Level 9.2 MG/DL Sodium Level 140 MEQ/L Potassium Level 4.1 MEQ/L Chloride Level 103 MEQ/L Carbon Dioxide Level 29.2 MEQ/L Anion Gap 8 MEQ/L Estimat Glomerular Filtration Rate 195 ML/MIN White Blood Count 4.0 TH/MM3 Red Blood Count 4.45 MIL/MM3 Hemoglobin 11.9 GM/DL Hematocrit 37.1 % Mean Corpuscular Volume 83.4 FL Mean Corpuscular Hemoglobin 26.7 PG Mean Corpuscular Hemoglobin Concent 32.1 % Red Cell Distribution Width 19.3 % Platelet Count 260 TH/MM3 Mean Platelet Volume 9.3 FL Objective Remarks GENERAL: Non verbal. HEAD: Normocephalic. EYES: No scleral icterus. No injection or drainage. NECK: Supple, trachea midline. No JVD. CARDIOVASCULAR: Regular rate and rhythm without murmurs, gallops, or rubs. RESPIRATORY: Breath sounds equal bilaterally. No accessory muscle use. GASTROINTESTINAL: Abdomen soft, non-tender, nondistended. PEG tube in place without leakage. MUSCULOSKELETAL: No cyanosis, or edema. BACK: Nontender without obvious deformity. No CVA tenderness. Medications and IVs Current Medications Medications (Trade) Dose Ordered Sig/Reymundo Route Start Time Stop Time Status Last Admin (Dulcolax Supp) 10 mg DAILY PRN RECTAL 04/10/17 22:00 (Lac-Hydrin 12% Lotion) 1 applic BID TOPICAL 05/04/17 14:00 02/04/18 09:56 (Prevacid Odt) 30 mg DAILY G-TUBE 05/10/17 09:00 02/04/18 09:56 (Apresoline) 25 mg Q4HR PRN PEG 05/18/17 14:45 02/01/18 17:57 (Zofran Liq) 4 mg Q6H PRN PEG 05/26/17 10:00 01/27/18 09:37 (Tylenol) 650 mg Q6H PRN PEG 06/16/17 16:00 Future Hold 10/17/17 19:29 (Senna Liq) 8.8 mg DAILY PEG 06/29/17 09:00 Future Hold 10/17/17 10:02 (Pill Splitter) 1 ea UNSCH PRN OTHER 10/17/17 17:45 12/08/17 20:45 (Free Water) 150 ml Q6HR G-TUBE 10/19/17 12:00 02/04/18 12:54 (Lopressor) 25 mg BID PEG 11/24/17 21:00 02/04/18 09:56 (Apresoline) 50 mg Q8HR PEG 12/12/17 22:00 02/04/18 12:53 (Santyl Oint) 1 applic DAILY TOPICAL 12/25/17 17:00 02/04/18 09:56 (Lexapro) 10 mg DAILY PEG 01/02/18 17:15 02/04/18 09:56 (Heparin Inj) 5,000 units Q12HR SQ 01/13/18 09:00 02/04/18 09:57 (Dakin'S 0.125% Soln) 50 ml DAILY TOPICAL 01/13/18 20:00 02/04/18 09:56 (Flagyl) 500 mg Q8H PEG 01/19/18 09:00 02/05/18 23:00 02/04/18 09:56 (Miralax) 17 gm DAILY PRN PEG 01/19/18 09:15 (Hydrodiuril) 25 mg DAILY PEG 01/19/18 09:03 02/04/18 09:57 (Lactinex) 1 tab TID PEG 01/19/18 18:00 02/04/18 12:53 (Levaquin) 750 mg DAILY@1200 PEG 01/20/18 12:00 02/21/18 11:59 02/04/18 12:53 (Procardia) 40 mg Q8HR PEG 01/25/18 06:00 02/04/18 12:53 (Catapres) 0.1 mg Q4H PRN PEG 02/01/18 22:00 (Simethicone Liq (Drops)) 40 mg QID PRN PO 02/03/18 15:15 02/04/18 09:56 A/P Assessment and Plan (1) Major neurocognitive disorder ICD Code: F03.90 - Unspecified dementia without behavioral disturbance (2) Hemiparesis ICD Code: G81.90 - Hemiplegia, unspecified affecting unspecified side Status: Acute (3) Intracranial hemorrhage ICD Code: I62.9 - Nontraumatic intracranial hemorrhage, unspecified Status: Chronic (4) Aphasia ICD Code: R47.01 - Aphasia Assessment and Plan 62-year-old female with history of hemorrhagic stroke and resulting neurocognitive decline. Status post hemorrhagic CVA, new acute and subacute stroke with chronic right hemiplegia and aphasia. Questionable new facial droop on 01/10; Brain MRI 01/11 showed acute to subacute left thalamic infarct with mild hemorrhagic component in patient with previous history of relatively large left thalamic CVA Neuro and neurosurgery consulted; no surgical intervention needed. Agreed to pharmacologic prophylaxis Facial droop improved UTI Ctx growing Enterobacter aerogenes. Patient received Levaquin x 14 days (01/03-) Repeat urinalysis showed Yenifer anticoagulates negative staph. Continue Diflucan until February 03. Cruz catheter placed. Pt remains afebrile, last time the Cruz was placed was January 20 Stage IV sacral pressure ulcer MRI showing bony edema and marrow replacement concerning for osteomyelitis; ID following, continue Levaquin and Flagyl until February Wound care following, S/P bedside debridement 01/11. worsening as per Nurse. continue wound care. will discuss in am with materials specialist. History of hemorrhagic CVA Continue PT, OT, and ST Poor prognosis. Patient does not participate well with therapy Palliative care following Dysphagia Due to hemorrhagic stroke Status post PEG placement on 05/09/17, PEG tube out 01/18/2018, consult invasive radiology for PEG tube reinsertion, medically necessary. Continue tube feedings, added Simethicone. HTN Continue nifedipine 40 mg Q6H, Apresoline 50 mg Q6H, Metoprolol 100 mg BID, HCTZ 25 mg Daily Vasotec IV PRN, Clonidine PRN Hyperglycemia Glucerna for tube feeds Follow blood sugars intermittently Xeroderma on bilateral feet Lac-Hydrin 12% Lotion continued Depression Continue Lexapro 10 mg via PEG daily Nutrition Tube feeds changed to Glucerna 1.5 CONTINUOUS AT 40ML PER HOUR, bolus feeding with Tyshawn DVT Prophylaxis Heparin (cleared by neurosurgery) Very poor prognosis. Patient does not display any meaningful involvement with therapy. Difficult DC. Awaiting placement Discharge Planning Patient was homeless prior to admit Poor access for inpatient rehabilitation Family desires aggressive measures for therapy and placement Independent funding unavailable for placement Long-term prognosis is poor No significant capacity for regaining full functionality Palliative care following Percy Frank MD Feb 04, 2018 14:25
[2018-02-05] VITALS (7 sets, daily range): BP systolic 111–144; BP diastolic 77–103; PULSE 70–98; RESP 14–20; TEMP 98.4–99.6; O2SAT 98–100
[2018-02-05] MEDS: metroNIDAZOLE 500 MG TAB PEG SCH ×3 (00:59→17:06)
[2018-02-05] MEDS: NIFEdipine 20 MG CAP PEG SCH ×3 (06:00→22:00)
[2018-02-05] MEDS: hydrALAZINE HCL 100 MG TAB PEG SCH ×3 (06:00→22:00)
[2018-02-05] MEDS: FREE WATER G-TUBE SCH ×4 (06:00→17:06)
[2018-02-05] MEDS: LACTIC ACID (AMMONIUM LACTATE) 12% LOTION 225 GM BTL TOPICAL SCH ×2 (07:35→21:00)
[2018-02-05] MEDS: METOPROLOL TARTRATE 25 MG TAB PEG SCH ×2 (07:35→21:00)
[2018-02-05] MEDS: LACTOBACILLUS ACIDOPHILUS TAB PEG SCH ×3 (07:35→17:06)
[2018-02-05] MEDS: LANSOPRAZOLE SOLUTAB 30 MG TAB G-TUBE SCH (07:35)
[2018-02-05] MEDS: SODIUM HYPOCHLORITE 0.125% 500 ML BTL TOPICAL SCH (07:35)
[2018-02-05] MEDS: ESCITALOPRAM OXALATE 10 MG TAB PEG SCH (07:35)
[2018-02-05] MEDS: SIMETHICONE SUSP DROPS 40 MG/0.6 ML 30 ML BTL PO PRN (07:35)
[2018-02-05] MEDS: HYDROCHLOROTHIAZIDE 25 MG TAB PEG SCH (07:35)
[2018-02-05] MEDS: COLLAGENASE OINT 30 GM TUBE TOPICAL SCH (07:35)
[2018-02-05] MEDS: HEPARIN SODIUM - SQ 10,000 UNITS/ML VIAL SQ SCH ×2 (07:43→21:00)
[2018-02-05] MEDS: LEVOFLOXACIN 750 MG TAB PEG SCH (12:59)
--- NOTE | 2018-02-05 13:01 | HHI.PR ---
Subjective Remarks sports medicine specialist Notes: Admission date 04/10/17 Middle-aged very pleasant female brought in by ambulance after being found in a park sitting next to a bench with altered mental status. Unknown time of onset. Patient was found by children playing in the park. Upon EMS arrival they noted right-sided weakness with a leftward gaze. Patient is nonverbal, she is following commands and is moving her left upper and left lower extremity. EKG was performed in the field and shows ST elevations in V1 through V3 with ST depressions and T-wave inversions in V5 and V6, therefore STEMI alert was also called by EMS. Patient was also notably hypertensive with blood pressures of 250s over 150s. Upon arrival to the emergency department the patient is awake, nonverbal, follows commands, protecting her airway, is able to move her left arm and left leg, however is unable to move her right arm and right leg. Patient was started on a Cardene drip for suspected intracranial hemorrhage and promptly taken to CT scan. At 8:05 PM case was discussed by with on-call phlebotomy director Dr. Quarles who agrees that this is most likely an intracranial hemorrhage based on clinical presentation, therefore STEMI alert was not initiated. CT of the head confirmed thalamic bleed with IVH extension. 02/04: :Stable in her bedroom, discussed with nurse and with her son in the room. 02/05: Seen in her bedroom, no complaint as per nurse, she is non verbal but able to states if is okay or not, discussed with nurse about loose stools started on Questran Objective Vital Signs Date Time Temp Pulse Resp B/P (MAP) Pulse Ox O2 Delivery O2 Flow Rate FiO2 02/05/18 08:00 98.6 88 14 118/82 (94) 99 02/05/18 06:41 144/103 (117) 02/05/18 04:00 98.9 86 20 126/93 (104) 98 02/05/18 00:00 99.6 98 20 111/78 (89) 100 02/04/18 20:00 99.7 93 18 117/84 (95) 99 02/04/18 16:00 98.7 88 14 128/86 (100) 99 I/O 02/04/18 02/04/18 02/04/18 02/05/18 02/05/18 02/05/18 07:00 15:00 23:00 07:00 15:00 23:00 Intake Total 1533 ml 1588 ml Output Total 300 ml 2 ml 800 ml Balance 1233 ml -2 ml 788 ml Tube Feeding 933 ml 887 ml Tube Irrigant 600 ml 701 ml Output Urine Total 300 ml 800 ml Stool Total 2 ml # Bowel Movements 1 1 Imaging Last Impressions Head CT 01/20/18 0000 Signed Impressions: Service Date/Time: Sunday, January 21, 2018 16:13 - CONCLUSION: 1. Small area of encephalomalacia with some surrounding hemorrhage in the left basal ganglia most consistent with an area of hemorrhagic infarct. This is stable compared to previous exams. 2. Cortical atrophy and microvascular ischemic demyelinative change. Timmy Dumas MD Chest X-Ray 01/19/18 0000 Signed Impressions: Service Date/Time: Friday, January 19, 2018 17:12 - CONCLUSION: Trace left base atelectasis. Hu Henderson MD Gastrostomy Tube Placement 01/18/18 0000 Signed Impressions: Service Date/Time: January 16:41 - CONCLUSION: Uncomplicated gastrostomy tube replacement through an existing tract. Timmy Dumas MD Brain MRI 01/11/18 0000 Signed Impressions: Service Date/Time: January 08:45 - CONCLUSION: 1. Focal area of restricted diffusion in the left thalmus characteristic of an acute to subacute infarct. 2. GRE images demonstrate subacute hemorrhage associated with the infarct in the left thalamus. 3. GRE images also demonstrate punctate areas of microhemorrhage noted in the deep right mid parietal lobe, right occipital lobe and bilateral basal ganglia regions, left greater than right. 4. Diffuse bilateral cortical atrophy and chronic white matter changes. Luciano Morales MD Abdomen/Pelvis CT 01/09/18 0000 Signed Impressions: Service Date/Time: Tuesday, January 09, 2018 18:48 - CONCLUSION: 1. There is a sacral decubitus wound/ulcer which extends to the sacrum. Prior MRI demonstrated abnormal sacrum in the inferior aspect of the sacrum and coccyx. There is also presacral edema. These findings are highly suspicious for osteomyelitis. 2. Nonacute findings include 3 mm nonobstructing right renal stone and multi-fibroid uterus. Hu Cuenca MD Sacrum/Coccyx MRI 01/06/18 0000 Signed Impressions: Service Date/Time: Saturday, January 06, 2018 08:30 - CONCLUSION: Large decubitus ulcer posteriorly with not only bony edema and marrow replacement concerning for osteomyelitis but it extends to the presacral fat is well where there is marked enhancement and fluid on the T2-weighted sequences. The coccygeal involvement is at least 3.5 cm in length. Eliud Du MD Abdomen X-Ray 12/13/17 0000 Signed Impressions: Service Date/Time: Wednesday, December 13, 2017 14:17 - CONCLUSION: PEG tube in stomach.. Harry Dumas MD FACR Upper Extremity Ultrasound 11/06/17 0000 Signed Impressions: Service Date/Time: Monday, November 06, 2017 14:17 - CONCLUSION: Normal examination. Kelby Perez MD Pelvis CT 10/13/17 0000 Signed Impressions: Service Date/Time: Friday, October 13, 2017 12:02 - CONCLUSION: 1. Decubitus ulcer with small abscess in the right posterior perineal region measuring 3.1 x 4.6 cm. There is also a small abscess posterior and to the left of the rectum measuring 3.2 x 2.3 cm. Jann Weber MD Neck CTA 04/10/17 0000 Signed Impressions: Service Date/Time: Monday, April 10, 2017 22:28 - CONCLUSION: The internal carotid arteries are normal bilaterally. No significant atherosclerotic disease is noted. Eliud Du MD Head CTA 04/10/17 0000 Signed Impressions: Service Date/Time: Monday, April 10, 2017 22:50 - CONCLUSION: Mild dilatation of the basilar tip without discrete aneurysm. Some narrowing of the left middle cerebral branch after the bifurcation. Prominent left thalamic hemorrhage. Eliud Du MD Procedures Peg Tube placed 05/08/17 (Dr. De Los Santos) Other Results Laboratory Tests Test 04/10/17 21:04 04/10/17 23:30 04/11/17 10:31 04/14/17 20:01 Urine Opiates Screen NEG Urine Barbiturates Screen NEG Urine Amphetamines Screen NEG Urine Benzodiazepines Screen NEG Urine Cocaine Screen NEG Urine Cannabinoids Screen NEG Nasal Screen MRSA (PCR) MRSA NOT DETECTED Troponin I 0.03 NG/ML Triglycerides Level 54 MG/DL Cholesterol Level 164 MG/DL LDL Cholesterol 81 MG/DL HDL Cholesterol 72.5 MG/DL Cholesterol/HDL Ratio 2.26 RATIO Vitamin B12 Level 228 PG/ML Folate 8.6 NG/ML Hepatitis A IgM Antibody NEGATIVE Hepatitis B Surface Antigen NEGATIVE Hepatitis B Core IgM Antibody NEGATIVE Hepatitis C Antibody NEGATIVE Test 04/19/17 04:19 05/08/17 07:53 05/28/17 13:00 06/27/17 17:30 Activated Partial Thromboplast Time 29.2 SEC Prothrombin Time 11.4 SEC Prothromb Time International Ratio 1.0 RATIO Urine Collection Type CATH Urine Collection Time 1300 Clue Cells (Wet Prep) NONE SEEN Vaginal Trichomonas (Wet Prep) NONE SEEN Vaginal Yeast (Wet Prep) NONE SEEN Test 06/28/17 04:50 10/12/17 05:40 10/13/17 06:00 10/14/17 09:10 Chlamydia trachomatis DNA (PCR) NOT DETECTED Neisseria gonorrhoeae DNA (PCR) NOT DETECTED Platelet Estimate NORMAL Platelet Morphology Comment NORMAL Red Cell Morphology Comment NORMAL Direct Bilirubin 0.2 MG/DL Indirect Bilirubin 0.2 MG/DL Lactic Acid Level 0.8 mmol/L Test 10/14/17 13:30 10/16/17 21:30 10/17/17 16:30 10/20/17 13:05 Stool C. difficile Toxin (PCR) NEGATIVE Stl C. difficile Toxin Epiderm 027 PRESUMPTIVE NEGATIVE Vancomycin Level Trough 15.7 MCG/ML Total Creatine Kinase 55 U/L Transferrin 148 MG/DL Test 11/16/17 05:17 12/04/17 11:10 12/08/17 11:00 12/23/17 08:47 Differential Total Cells Counted 100 Neutrophils % (Manual) 26 % Lymphocytes % 61 % Monocytes % 8 % Eosinophils % 5 % Neutrophils # (Manual) 0.9 TH/MM3 Prealbumin 14 MG/DL Urine Amorphous Sediment FEW Hemoglobin A1c 5.2 % Blood Urea Nitrogen 15 MG/DL Creatinine 0.36 MG/DL Random Glucose 111 MG/DL Total Protein 7.2 GM/DL Albumin 3.0 GM/DL Calcium Level 9.0 MG/DL Phosphorus Level 2.7 MG/DL Magnesium Level 2.4 MG/DL Alkaline Phosphatase 71 U/L Aspartate Amino Transf (AST/SGOT) 19 U/L Alanine Aminotransferase (ALT/SGPT) 16 U/L Total Bilirubin 0.2 MG/DL Sodium Level 140 MEQ/L Potassium Level 3.9 MEQ/L Chloride Level 103 MEQ/L Carbon Dioxide Level 31.3 MEQ/L Free Thyroxine 1.88 NG/DL Thyroid Stimulating Hormone 3rd Gen 1.270 uIU/ML Test 01/01/18 20:36 01/10/18 12:59 01/17/18 18:00 01/27/18 12:08 Urine WBC Clumps MANY Urine Calcium Oxalate Crystals OCC /hpf Urine Mucus MOD /lpf Erythrocyte Sedimentation Rate 48 mm/hr Urine Color YELLOW Urine Turbidity HAZY Urine pH 7.5 Urine Specific [place] 1.015 Urine Protein 100 mg/dL Urine Glucose (UA) NEG mg/dL Urine Ketones NEG mg/dL Urine Occult Blood SMALL Urine Nitrite NEG Urine Bilirubin NEG Urine Urobilinogen LESS THAN 2.0 MG/DL Urine Leukocyte Esterase LARGE Urine RBC 3 /hpf Urine WBC 52 /hpf Urine Squamous Epithelial Cells 1 /hpf Urine Transitional Epithelial Cells 1 /hpf Urine Bacteria MOD /hpf Urine Hyaline Casts 9 /lpf Microscopic Urinalysis Comment CATH-CULTURE IND Blood Urea Nitrogen 8 MG/DL Creatinine 0.34 MG/DL Random Glucose 91 MG/DL Albumin 3.2 GM/DL Calcium Level 9.1 MG/DL Phosphorus Level 2.9 MG/DL Magnesium Level 2.2 MG/DL Sodium Level 141 MEQ/L Potassium Level 3.9 MEQ/L Chloride Level 103 MEQ/L Carbon Dioxide Level 28.8 MEQ/L Test 01/28/18 07:17 01/28/18 12:09 01/29/18 12:50 Neutrophils (%) (Auto) 39.0 % Lymphocytes (%) (Auto) 37.7 % Monocytes (%) (Auto) 19.0 % Eosinophils (%) (Auto) 3.7 % Basophils (%) (Auto) 0.6 % Neutrophils # (Auto) 1.4 TH/MM3 Lymphocytes # (Auto) 1.4 TH/MM3 Monocytes # (Auto) 0.7 TH/MM3 Eosinophils # (Auto) 0.1 TH/MM3 Basophils # (Auto) 0.0 TH/MM3 CBC Comment DIFF FINAL Differential Comment Blood Urea Nitrogen 11 MG/DL Creatinine 0.40 MG/DL Random Glucose 84 MG/DL Calcium Level 9.2 MG/DL Sodium Level 140 MEQ/L Potassium Level 4.1 MEQ/L Chloride Level 103 MEQ/L Carbon Dioxide Level 29.2 MEQ/L Anion Gap 8 MEQ/L Estimat Glomerular Filtration Rate 195 ML/MIN White Blood Count 4.0 TH/MM3 Red Blood Count 4.45 MIL/MM3 Hemoglobin 11.9 GM/DL Hematocrit 37.1 % Mean Corpuscular Volume 83.4 FL Mean Corpuscular Hemoglobin 26.7 PG Mean Corpuscular Hemoglobin Concent 32.1 % Red Cell Distribution Width 19.3 % Platelet Count 260 TH/MM3 Mean Platelet Volume 9.3 FL Objective Remarks GENERAL: Non verbal. HEAD: Normocephalic. EYES: No scleral icterus. No injection or drainage. NECK: Supple, trachea midline. No JVD. CARDIOVASCULAR: Regular rate and rhythm without murmurs, gallops, or rubs. RESPIRATORY: Breath sounds equal bilaterally. No accessory muscle use. GASTROINTESTINAL: Abdomen soft, non-tender, nondistended. PEG tube in place without leakage. MUSCULOSKELETAL: No cyanosis, or edema. BACK: Nontender without obvious deformity. No CVA tenderness. Medications and IVs Current Medications Medications (Trade) Dose Ordered Sig/Reymundo Route Start Time Stop Time Status Last Admin (Dulcolax Supp) 10 mg DAILY PRN RECTAL 04/10/17 22:00 (Lac-Hydrin 12% Lotion) 1 applic BID TOPICAL 05/04/17 14:00 02/05/18 07:35 (Prevacid Odt) 30 mg DAILY G-TUBE 05/10/17 09:00 02/05/18 07:35 (Apresoline) 25 mg Q4HR PRN PEG 05/18/17 14:45 02/01/18 17:57 (Zofran Liq) 4 mg Q6H PRN PEG 05/26/17 10:00 01/27/18 09:37 (Tylenol) 650 mg Q6H PRN PEG 06/16/17 16:00 Future Hold 10/17/17 19:29 (Senna Liq) 8.8 mg DAILY PEG 06/29/17 09:00 Future Hold 10/17/17 10:02 (Pill Splitter) 1 ea UNSCH PRN OTHER 10/17/17 17:45 12/08/17 20:45 (Free Water) 150 ml Q6HR G-TUBE 10/19/17 12:00 02/05/18 12:59 (Lopressor) 25 mg BID PEG 11/24/17 21:00 02/05/18 07:35 (Apresoline) 50 mg Q8HR PEG 12/12/17 22:00 02/05/18 12:59 (Santyl Oint) 1 applic DAILY TOPICAL 12/25/17 17:00 02/05/18 07:35 (Lexapro) 10 mg DAILY PEG 01/02/18 17:15 02/05/18 07:35 (Heparin Inj) 5,000 units Q12HR SQ 01/13/18 09:00 02/04/18 21:34 (Dakin'S 0.125% Soln) 50 ml DAILY TOPICAL 01/13/18 20:00 02/05/18 07:35 (Flagyl) 500 mg Q8H PEG 01/19/18 09:00 02/05/18 23:00 02/05/18 07:35 (Miralax) 17 gm DAILY PRN PEG 01/19/18 09:15 (Hydrodiuril) 25 mg DAILY PEG 01/19/18 09:03 02/05/18 07:35 (Lactinex) 1 tab TID PEG 01/19/18 18:00 02/05/18 12:59 (Levaquin) 750 mg DAILY@1200 PEG 01/20/18 12:00 02/21/18 11:59 02/05/18 12:59 (Procardia) 40 mg Q8HR PEG 01/25/18 06:00 02/05/18 12:59 (Catapres) 0.1 mg Q4H PRN PEG 02/01/18 22:00 (Simethicone Liq (Drops)) 40 mg QID PRN PO 02/03/18 15:15 02/05/18 07:35 A/P Assessment and Plan (1) Major neurocognitive disorder ICD Code: F03.90 - Unspecified dementia without behavioral disturbance (2) Hemiparesis ICD Code: G81.90 - Hemiplegia, unspecified affecting unspecified side Status: Acute (3) Intracranial hemorrhage ICD Code: I62.9 - Nontraumatic intracranial hemorrhage, unspecified Status: Chronic (4) Aphasia ICD Code: R47.01 - Aphasia Assessment and Plan 62-year-old female with history of hemorrhagic stroke and resulting neurocognitive decline. Status post hemorrhagic CVA, new acute and subacute stroke with chronic right hemiplegia and aphasia. Questionable new facial droop on 3/7; Brain MRI 01/11 showed acute to subacute left thalamic infarct with mild hemorrhagic component in patient with previous history of relatively large left thalamic CVA Neuro and neurosurgery consulted; no surgical intervention needed. Agreed to pharmacologic prophylaxis Facial droop improved UTI Ctx growing Enterobacter aerogenes. Patient received Levaquin x 14 days (01/03-) Repeat urinalysis showed Yenifer anticoagulates negative staph. Continue Diflucan until February 03. Cruz catheter placed. Pt remains afebrile, last time the Rcuz was placed was January 20 Stage IV sacral pressure ulcer MRI showing bony edema and marrow replacement concerning for osteomyelitis; ID following, continue Levaquin and Flagyl until February Wound care following, S/P bedside debridement 01/11. worsening as per Nurse. continue wound care. will discuss in am with optical instrument specialist. History of hemorrhagic CVA Continue PT, OT, and ST Poor prognosis. Patient does not participate well with therapy Palliative care following Dysphagia Due to hemorrhagic stroke Status post PEG placement on 05/09/17, PEG tube out 01/18/2018, consult invasive radiology for PEG tube reinsertion, medically necessary. Continue tube feedings, added Simethicone. HTN Continue nifedipine 40 mg Q6H, Apresoline 50 mg Q6H, Metoprolol 100 mg BID, HCTZ 25 mg Daily Vasotec IV PRN, Clonidine PRN Hyperglycemia Glucerna for tube feeds Follow blood sugars intermittently Xeroderma on bilateral feet Lac-Hydrin 12% Lotion continued Depression Continue Lexapro 10 mg via PEG daily Nutrition Tube feeds changed to Glucerna 1.5 CONTINUOUS AT 40ML PER HOUR, bolus feeding with Tyshawn Loose stools started on Questran DVT Prophylaxis Heparin (cleared by neurosurgery) Very poor prognosis. Patient does not display any meaningful involvement with therapy. Difficult DC. Awaiting placement Discharge Planning Patient was homeless prior to admit Poor access for inpatient rehabilitation Family desires aggressive measures for therapy and placement Independent funding unavailable for placement Long-term prognosis is poor No significant capacity for regaining full functionality Palliative care following Percy Frank MD Feb 05, 2018 13:01
[2018-02-06] MEDS: NIFEdipine 20 MG CAP PEG SCH ×3 (06:00→21:17)
[2018-02-06] MEDS: FREE WATER G-TUBE SCH ×4 (06:00→17:18)
[2018-02-06] MEDS: hydrALAZINE HCL 100 MG TAB PEG SCH ×3 (06:00→21:20)
[2018-02-06 08:00] VITALS: BP 124/70; PULSE 72; RESP 14; TEMP 98.7; O2SAT 98
[2018-02-06] MEDS: HYDROCHLOROTHIAZIDE 25 MG TAB PEG SCH (09:15)
[2018-02-06] MEDS: LANSOPRAZOLE SOLUTAB 30 MG TAB G-TUBE SCH (09:15)
[2018-02-06] MEDS: METOPROLOL TARTRATE 25 MG TAB PEG SCH ×2 (09:15→21:17)
[2018-02-06] MEDS: ESCITALOPRAM OXALATE 10 MG TAB PEG SCH (09:15)
[2018-02-06] MEDS: LACTOBACILLUS ACIDOPHILUS TAB PEG SCH ×3 (09:15→17:18)
[2018-02-06] MEDS: HEPARIN SODIUM - SQ 10,000 UNITS/ML VIAL SQ SCH ×2 (09:16→21:17)
[2018-02-06] MEDS: COLLAGENASE OINT 30 GM TUBE TOPICAL SCH (09:16)
[2018-02-06] MEDS: SODIUM HYPOCHLORITE 0.125% 500 ML BTL TOPICAL SCH (09:18)
[2018-02-06] MEDS: LACTIC ACID (AMMONIUM LACTATE) 12% LOTION 225 GM BTL TOPICAL SCH ×2 (09:18→21:21)
[2018-02-06] MEDS: SIMETHICONE SUSP DROPS 40 MG/0.6 ML 30 ML BTL PO PRN (09:18)
[2018-02-06 12:00] VITALS: BP 114/74; PULSE 71; RESP 12; TEMP 98.2; O2SAT 98
[2018-02-06] MEDS: LEVOFLOXACIN 750 MG TAB PEG SCH (13:40)
--- NOTE | 2018-02-06 15:24 | HHI.PR ---
Subjective Remarks claim benefit specialist Notes: Admission date 04/10/17 Middle-aged very pleasant female brought in by ambulance after being found in a park sitting next to a bench with altered mental status. Unknown time of onset. Patient was found by children playing in the park. Upon EMS arrival they noted right-sided weakness with a leftward gaze. Patient is nonverbal, she is following commands and is moving her left upper and left lower extremity. EKG was performed in the field and shows ST elevations in V1 through V3 with ST depressions and T-wave inversions in V5 and V6, therefore STEMI alert was also called by EMS. Patient was also notably hypertensive with blood pressures of 250s over 150s. Upon arrival to the emergency department the patient is awake, nonverbal, follows commands, protecting her airway, is able to move her left arm and left leg, however is unable to move her right arm and right leg. Patient was started on a Cardene drip for suspected intracranial hemorrhage and promptly taken to CT scan. At 8:05 PM case was discussed by with on-call activities counselor Dr. Quarles who agrees that this is most likely an intracranial hemorrhage based on clinical presentation, therefore STEMI alert was not initiated. CT of the head confirmed thalamic bleed with IVH extension. 02/04: :Stable in her bedroom, discussed with nurse and with her son in the room. 02/05: Seen in her bedroom, no complaint as per nurse, she is non verbal but able to states if is okay or not, discussed with nurse about loose stools started on Questran Objective Vital Signs Date Time Temp Pulse Resp B/P (MAP) Pulse Ox O2 Delivery O2 Flow Rate FiO2 02/06/18 08:00 98.7 72 14 124/70 (88) 98 02/05/18 20:00 99.6 88 16 100 02/05/18 16:00 98.9 92 14 111/84 (93) 98 I/O 02/05/18 02/05/18 02/05/18 02/06/18 02/06/18 02/06/18 07:00 15:00 23:00 07:00 15:00 23:00 Intake Total 1588 ml 1073 ml Output Total 800 ml 400 ml Balance 788 ml 673 ml Tube Feeding 887 ml 742 ml Tube Irrigant 701 ml Other 331 ml Output Urine Total 800 ml 400 ml # Bowel Movements 1 Imaging Last Impressions Head CT 01/20/18 0000 Signed Impressions: Service Date/Time: Sunday, January 21, 2018 16:13 - CONCLUSION: 1. Small area of encephalomalacia with some surrounding hemorrhage in the left basal ganglia most consistent with an area of hemorrhagic infarct. This is stable compared to previous exams. 2. Cortical atrophy and microvascular ischemic demyelinative change. Timmy Dumas MD Chest X-Ray 01/19/18 0000 Signed Impressions: Service Date/Time: Friday, January 19, 2018 17:12 - CONCLUSION: Trace left base atelectasis. Hu Henderson MD Gastrostomy Tube Placement 01/18/18 0000 Signed Impressions: Service Date/Time: January 16:41 - CONCLUSION: Uncomplicated gastrostomy tube replacement through an existing tract. Timmy Dumas MD Brain MRI 01/11/18 0000 Signed Impressions: Service Date/Time: January 08:45 - CONCLUSION: 1. Focal area of restricted diffusion in the left thalmus characteristic of an acute to subacute infarct. 2. GRE images demonstrate subacute hemorrhage associated with the infarct in the left thalamus. 3. GRE images also demonstrate punctate areas of microhemorrhage noted in the deep right mid parietal lobe, right occipital lobe and bilateral basal ganglia regions, left greater than right. 4. Diffuse bilateral cortical atrophy and chronic white matter changes. Luciano Morales MD Abdomen/Pelvis CT 01/09/18 0000 Signed Impressions: Service Date/Time: Tuesday, January 09, 2018 18:48 - CONCLUSION: 1. There is a sacral decubitus wound/ulcer which extends to the sacrum. Prior MRI demonstrated abnormal sacrum in the inferior aspect of the sacrum and coccyx. There is also presacral edema. These findings are highly suspicious for osteomyelitis. 2. Nonacute findings include 3 mm nonobstructing right renal stone and multi-fibroid uterus. Hu Cuenca MD Sacrum/Coccyx MRI 01/06/18 0000 Signed Impressions: Service Date/Time: Saturday, January 06, 2018 08:30 - CONCLUSION: Large decubitus ulcer posteriorly with not only bony edema and marrow replacement concerning for osteomyelitis but it extends to the presacral fat is well where there is marked enhancement and fluid on the T2-weighted sequences. The coccygeal involvement is at least 3.5 cm in length. Eliud Du MD Abdomen X-Ray 12/13/17 0000 Signed Impressions: Service Date/Time: Wednesday, December 13, 2017 14:17 - CONCLUSION: PEG tube in stomach.. Harry Dumas MD FACR Upper Extremity Ultrasound 11/06/17 0000 Signed Impressions: Service Date/Time: Monday, November 06, 2017 14:17 - CONCLUSION: Normal examination. Kelby Perez MD Pelvis CT 10/13/17 0000 Signed Impressions: Service Date/Time: Friday, October 13, 2017 12:02 - CONCLUSION: 1. Decubitus ulcer with small abscess in the right posterior perineal region measuring 3.1 x 4.6 cm. There is also a small abscess posterior and to the left of the rectum measuring 3.2 x 2.3 cm. Jann Weber MD Neck CTA 04/10/17 0000 Signed Impressions: Service Date/Time: Monday, April 10, 2017 22:28 - CONCLUSION: The internal carotid arteries are normal bilaterally. No significant atherosclerotic disease is noted. Eliud Du MD Head CTA 04/10/17 0000 Signed Impressions: Service Date/Time: Monday, April 10, 2017 22:50 - CONCLUSION: Mild dilatation of the basilar tip without discrete aneurysm. Some narrowing of the left middle cerebral branch after the bifurcation. Prominent left thalamic hemorrhage. Eliud Du MD Procedures Peg Tube placed 05/08/17 (Dr. De Los Santos) Other Results Laboratory Tests Test 04/10/17 21:04 04/10/17 23:30 04/11/17 10:31 04/14/17 20:01 Urine Opiates Screen NEG Urine Barbiturates Screen NEG Urine Amphetamines Screen NEG Urine Benzodiazepines Screen NEG Urine Cocaine Screen NEG Urine Cannabinoids Screen NEG Nasal Screen MRSA (PCR) MRSA NOT DETECTED Troponin I 0.03 NG/ML Triglycerides Level 54 MG/DL Cholesterol Level 164 MG/DL LDL Cholesterol 81 MG/DL HDL Cholesterol 72.5 MG/DL Cholesterol/HDL Ratio 2.26 RATIO Vitamin B12 Level 228 PG/ML Folate 8.6 NG/ML Hepatitis A IgM Antibody NEGATIVE Hepatitis B Surface Antigen NEGATIVE Hepatitis B Core IgM Antibody NEGATIVE Hepatitis C Antibody NEGATIVE Test 04/19/17 04:19 7/3/17 07:53 05/28/17 13:00 06/27/17 17:30 Activated Partial Thromboplast Time 29.2 SEC Prothrombin Time 11.4 SEC Prothromb Time International Ratio 1.0 RATIO Urine Collection Type CATH Urine Collection Time 1300 Clue Cells (Wet Prep) NONE SEEN Vaginal Trichomonas (Wet Prep) NONE SEEN Vaginal Yeast (Wet Prep) NONE SEEN Test 06/28/17 04:50 10/12/17 05:40 10/13/17 06:00 10/14/17 09:10 Chlamydia trachomatis DNA (PCR) NOT DETECTED Neisseria gonorrhoeae DNA (PCR) NOT DETECTED Platelet Estimate NORMAL Platelet Morphology Comment NORMAL Red Cell Morphology Comment NORMAL Direct Bilirubin 0.2 MG/DL Indirect Bilirubin 0.2 MG/DL Lactic Acid Level 0.8 mmol/L Test 10/14/17 13:30 10/16/17 21:30 10/17/17 16:30 10/20/17 13:05 Stool C. difficile Toxin (PCR) NEGATIVE Stl C. difficile Toxin Epiderm 027 PRESUMPTIVE NEGATIVE Vancomycin Level Trough 15.7 MCG/ML Total Creatine Kinase 55 U/L Transferrin 148 MG/DL Test 11/16/17 05:17 12/04/17 11:10 12/08/17 11:00 12/23/17 08:47 Differential Total Cells Counted 100 Neutrophils % (Manual) 26 % Lymphocytes % 61 % Monocytes % 8 % Eosinophils % 5 % Neutrophils # (Manual) 0.9 TH/MM3 Prealbumin 14 MG/DL Urine Amorphous Sediment FEW Hemoglobin A1c 5.2 % Blood Urea Nitrogen 15 MG/DL Creatinine 0.36 MG/DL Random Glucose 111 MG/DL Total Protein 7.2 GM/DL Albumin 3.0 GM/DL Calcium Level 9.0 MG/DL Phosphorus Level 2.7 MG/DL Magnesium Level 2.4 MG/DL Alkaline Phosphatase 71 U/L Aspartate Amino Transf (AST/SGOT) 19 U/L Alanine Aminotransferase (ALT/SGPT) 16 U/L Total Bilirubin 0.2 MG/DL Sodium Level 140 MEQ/L Potassium Level 3.9 MEQ/L Chloride Level 103 MEQ/L Carbon Dioxide Level 31.3 MEQ/L Free Thyroxine 1.88 NG/DL Thyroid Stimulating Hormone 3rd Gen 1.270 uIU/ML Test 01/01/18 20:36 01/10/18 12:59 01/17/18 18:00 01/27/18 12:08 Urine WBC Clumps MANY Urine Calcium Oxalate Crystals OCC /hpf Urine Mucus MOD /lpf Erythrocyte Sedimentation Rate 48 mm/hr Urine Color YELLOW Urine Turbidity HAZY Urine pH 7.5 Urine Specific [place] 1.015 Urine Protein 100 mg/dL Urine Glucose (UA) NEG mg/dL Urine Ketones NEG mg/dL Urine Occult Blood SMALL Urine Nitrite NEG Urine Bilirubin NEG Urine Urobilinogen LESS THAN 2.0 MG/DL Urine Leukocyte Esterase LARGE Urine RBC 3 /hpf Urine WBC 52 /hpf Urine Squamous Epithelial Cells 1 /hpf Urine Transitional Epithelial Cells 1 /hpf Urine Bacteria MOD /hpf Urine Hyaline Casts 9 /lpf Microscopic Urinalysis Comment CATH-CULTURE IND Blood Urea Nitrogen 8 MG/DL Creatinine 0.34 MG/DL Random Glucose 91 MG/DL Albumin 3.2 GM/DL Calcium Level 9.1 MG/DL Phosphorus Level 2.9 MG/DL Magnesium Level 2.2 MG/DL Sodium Level 141 MEQ/L Potassium Level 3.9 MEQ/L Chloride Level 103 MEQ/L Carbon Dioxide Level 28.8 MEQ/L Test 01/28/18 07:17 01/28/18 12:09 01/29/18 12:50 Neutrophils (%) (Auto) 39.0 % Lymphocytes (%) (Auto) 37.7 % Monocytes (%) (Auto) 19.0 % Eosinophils (%) (Auto) 3.7 % Basophils (%) (Auto) 0.6 % Neutrophils # (Auto) 1.4 TH/MM3 Lymphocytes # (Auto) 1.4 TH/MM3 Monocytes # (Auto) 0.7 TH/MM3 Eosinophils # (Auto) 0.1 TH/MM3 Basophils # (Auto) 0.0 TH/MM3 CBC Comment DIFF FINAL Differential Comment Blood Urea Nitrogen 11 MG/DL Creatinine 0.40 MG/DL Random Glucose 84 MG/DL Calcium Level 9.2 MG/DL Sodium Level 140 MEQ/L Potassium Level 4.1 MEQ/L Chloride Level 103 MEQ/L Carbon Dioxide Level 29.2 MEQ/L Anion Gap 8 MEQ/L Estimat Glomerular Filtration Rate 195 ML/MIN White Blood Count 4.0 TH/MM3 Red Blood Count 4.45 MIL/MM3 Hemoglobin 11.9 GM/DL Hematocrit 37.1 % Mean Corpuscular Volume 83.4 FL Mean Corpuscular Hemoglobin 26.7 PG Mean Corpuscular Hemoglobin Concent 32.1 % Red Cell Distribution Width 19.3 % Platelet Count 260 TH/MM3 Mean Platelet Volume 9.3 FL Objective Remarks GENERAL: Non verbal. HEAD: Normocephalic. EYES: No scleral icterus. No injection or drainage. NECK: Supple, trachea midline. No JVD. CARDIOVASCULAR: Regular rate and rhythm without murmurs, gallops, or rubs. RESPIRATORY: Breath sounds equal bilaterally. No accessory muscle use. GASTROINTESTINAL: Abdomen soft, non-tender, nondistended. PEG tube in place without leakage. MUSCULOSKELETAL: No cyanosis, or edema. BACK: Nontender without obvious deformity. No CVA tenderness. Medications and IVs Current Medications Medications (Trade) Dose Ordered Sig/Reymundo Route Start Time Stop Time Status Last Admin (Dulcolax Supp) 10 mg DAILY PRN RECTAL 04/10/17 22:00 (Lac-Hydrin 12% Lotion) 1 applic BID TOPICAL 05/04/17 14:00 02/06/18 09:18 (Prevacid Odt) 30 mg DAILY G-TUBE 05/10/17 09:00 02/06/18 09:15 (Apresoline) 25 mg Q4HR PRN PEG 05/18/17 14:45 02/01/18 17:57 (Zofran Liq) 4 mg Q6H PRN PEG 05/26/17 10:00 01/27/18 09:37 (Tylenol) 650 mg Q6H PRN PEG 06/16/17 16:00 Future Hold 10/17/17 19:29 (Senna Liq) 8.8 mg DAILY PEG 06/29/17 09:00 Future Hold 10/17/17 10:02 (Pill Splitter) 1 ea UNSCH PRN OTHER 10/17/17 17:45 12/08/17 20:45 (Free Water) 150 ml Q6HR G-TUBE 10/19/17 12:00 02/06/18 09:16 (Lopressor) 25 mg BID PEG 11/24/17 21:00 02/06/18 09:15 (Apresoline) 50 mg Q8HR PEG 12/12/17 22:00 02/06/18 13:40 (Santyl Oint) 1 applic DAILY TOPICAL 12/25/17 17:00 02/06/18 09:16 (Lexapro) 10 mg DAILY PEG 01/02/18 17:15 02/06/18 09:15 (Heparin Inj) 5,000 units Q12HR SQ 01/13/18 09:00 02/06/18 09:16 (Dakin'S 0.125% Soln) 50 ml DAILY TOPICAL 01/13/18 20:00 02/06/18 09:18 (Miralax) 17 gm DAILY PRN PEG 01/19/18 09:15 (Hydrodiuril) 25 mg DAILY PEG 01/19/18 09:03 02/06/18 09:15 (Lactinex) 1 tab TID PEG 01/19/18 18:00 02/06/18 13:40 (Levaquin) 750 mg DAILY@1200 PEG 01/20/18 12:00 02/21/18 11:59 02/06/18 13:40 (Procardia) 40 mg Q8HR PEG 01/25/18 06:00 02/06/18 13:40 (Catapres) 0.1 mg Q4H PRN PEG 02/01/18 22:00 (Simethicone Liq (Drops)) 40 mg QID PRN PO 02/03/18 15:15 02/06/18 09:18 A/P Assessment and Plan (1) Major neurocognitive disorder ICD Code: F03.90 - Unspecified dementia without behavioral disturbance (2) Hemiparesis ICD Code: G81.90 - Hemiplegia, unspecified affecting unspecified side Status: Acute (3) Intracranial hemorrhage ICD Code: I62.9 - Nontraumatic intracranial hemorrhage, unspecified Status: Chronic (4) Aphasia ICD Code: R47.01 - Aphasia Assessment and Plan 62-year-old female with history of hemorrhagic stroke and resulting neurocognitive decline. Status post hemorrhagic CVA, new acute and subacute stroke with chronic right hemiplegia and aphasia. Questionable new facial droop on 01/10; Brain MRI 01/11 showed acute to subacute left thalamic infarct with mild hemorrhagic component in patient with previous history of relatively large left thalamic CVA Neuro and neurosurgery consulted; no surgical intervention needed. Agreed to pharmacologic prophylaxis Facial droop improved UTI Ctx growing Enterobacter aerogenes. Patient received Levaquin x 14 days (01/03-) Repeat urinalysis showed Yenifer anticoagulates negative staph. Continue Diflucan until February 03. Cruz catheter placed. Pt remains afebrile, last time the Cruz was placed was January 20 Stage IV sacral pressure ulcer MRI showing bony edema and marrow replacement concerning for osteomyelitis; ID following, continue Levaquin and Flagyl until February Wound care following, S/P bedside debridement 01/11. worsening as per Nurse. continue wound care. will discuss in am with account development specialist. History of hemorrhagic CVA Continue PT, OT, and ST Poor prognosis. Patient does not participate well with therapy Palliative care following Dysphagia Due to hemorrhagic stroke Status post PEG placement on 05/09/17, PEG tube out 01/18/2018, consult invasive radiology for PEG tube reinsertion, medically necessary. Continue tube feedings, added Simethicone. HTN Continue nifedipine 40 mg Q6H, Apresoline 50 mg Q6H, Metoprolol 100 mg BID, HCTZ 25 mg Daily Vasotec IV PRN, Clonidine PRN Hyperglycemia Glucerna for tube feeds Follow blood sugars intermittently Xeroderma on bilateral feet Lac-Hydrin 12% Lotion continued Depression Continue Lexapro 10 mg via PEG daily Nutrition Tube feeds changed to Glucerna 1.5 CONTINUOUS AT 40ML PER HOUR, bolus feeding with Tyshawn Loose stools started on Questran DVT Prophylaxis Heparin (cleared by neurosurgery) Very poor prognosis. Patient does not display any meaningful involvement with therapy. Difficult DC. Awaiting placement Discharge Planning Patient was homeless prior to admit Poor access for inpatient rehabilitation Family desires aggressive measures for therapy and placement Independent funding unavailable for placement Long-term prognosis is poor No significant capacity for regaining full functionality Palliative care following Percy Frank MD Feb 06, 2018 15:24
[2018-02-06 16:00] VITALS: BP 127/82; PULSE 98; RESP 14; TEMP 98.9; O2SAT 98
[2018-02-06] MEDS: CHOLESTYRAMINE 4 GM PACKET PEG SCH ×2 (17:18→21:17)
[2018-02-06 21:14] VITALS: BP 145/103; PULSE 93; RESP 19; TEMP 98.5; O2SAT 96
[2018-02-06 22:02] VITALS: BP 139/97
[2018-02-07] VITALS (7 sets, daily range): BP systolic 115–157; BP diastolic 81–104; PULSE 78–114; RESP 16–20; TEMP 97.4–98.4; O2SAT 95–100
[2018-02-07] MEDS: FREE WATER G-TUBE SCH (00:18)
[2018-02-07] MEDS: CHOLESTYRAMINE 4 GM PACKET PEG SCH ×3 (05:49→22:07)
[2018-02-07] MEDS: NIFEdipine 20 MG CAP PEG SCH ×3 (05:50→22:07)
[2018-02-07] MEDS: hydrALAZINE HCL 100 MG TAB PEG SCH ×3 (05:50→22:07)
[2018-02-07] MEDS: FREE WATER PEG SCH ×4 (05:50→23:40)
[2018-02-07] MEDS: HEPARIN SODIUM - SQ 10,000 UNITS/ML VIAL SQ SCH ×2 (09:50→22:07)
[2018-02-07] MEDS: LANSOPRAZOLE SOLUTAB 30 MG TAB G-TUBE SCH (09:50)
[2018-02-07] MEDS: METOPROLOL TARTRATE 25 MG TAB PEG SCH ×2 (09:50→22:07)
[2018-02-07] MEDS: LACTOBACILLUS ACIDOPHILUS TAB PEG SCH ×3 (09:50→17:59)
[2018-02-07] MEDS: ONDANSETRON HCL 4 MG/5 ML UDC PEG PRN (09:50)
[2018-02-07] MEDS: HYDROCHLOROTHIAZIDE 25 MG TAB PEG SCH (09:50)
[2018-02-07] MEDS: COLLAGENASE OINT 30 GM TUBE TOPICAL SCH (09:51)
[2018-02-07] MEDS: LACTIC ACID (AMMONIUM LACTATE) 12% LOTION 225 GM BTL TOPICAL SCH ×2 (09:51→22:08)
[2018-02-07] MEDS: ESCITALOPRAM OXALATE 10 MG TAB PEG SCH (09:51)
[2018-02-07] MEDS: SODIUM HYPOCHLORITE 0.125% 500 ML BTL TOPICAL SCH (09:51)
[2018-02-07] MEDS: JUVEN POWDER 1 PACK G-TUBE SCH ×2 (09:51→22:06)
[2018-02-07] MEDS: SIMETHICONE SUSP DROPS 40 MG/0.6 ML 30 ML BTL PO PRN (09:52)
[2018-02-07] MEDS: LEVOFLOXACIN 750 MG TAB PEG SCH (12:01)
--- NOTE | 2018-02-07 15:03 | HHI.PR ---
Subjective Remarks electronic publications specialist Notes: Admission date 04/10/17 Middle-aged very pleasant female brought in by ambulance after being found in a park sitting next to a bench with altered mental status. Unknown time of onset. Patient was found by children playing in the park. Upon EMS arrival they noted right-sided weakness with a leftward gaze. Patient is nonverbal, she is following commands and is moving her left upper and left lower extremity. EKG was performed in the field and shows ST elevations in V1 through V3 with ST depressions and T-wave inversions in V5 and V6, therefore STEMI alert was also called by EMS. Patient was also notably hypertensive with blood pressures of 250s over 150s. Upon arrival to the emergency department the patient is awake, nonverbal, follows commands, protecting her airway, is able to move her left arm and left leg, however is unable to move her right arm and right leg. Patient was started on a Cardene drip for suspected intracranial hemorrhage and promptly taken to CT scan. At 8:05 PM case was discussed by with on-call gut snatcher Dr. Quarles who agrees that this is most likely an intracranial hemorrhage based on clinical presentation, therefore STEMI alert was not initiated. CT of the head confirmed thalamic bleed with IVH extension. 02/07: Seen in her bedroom, discussed with nurse Miss Corona, patient stable in her bedroom, no changes to anterior assessment, breathing well, no complaint Objective Vital Signs Date Time Temp Pulse Resp B/P (MAP) Pulse Ox O2 Delivery O2 Flow Rate FiO2 02/07/18 08:00 98.4 100 16 117/84 (95) 97 02/07/18 05:46 78 140/99 (113) 02/07/18 04:29 98.1 88 18 138/94 (109) 95 02/07/18 00:16 97.8 89 19 127/82 (97) 99 02/06/18 22:02 139/97 (111) 02/06/18 21:14 98.5 93 19 145/103 (117) 96 02/06/18 16:00 98.9 98 14 127/82 (97) 98 I/O 02/06/18 02/06/18 02/06/18 02/07/18 02/07/18 02/07/18 07:00 15:00 23:00 07:00 15:00 23:00 Intake Total 1073 ml 780 ml 638 ml Output Total 400 ml 750 ml 725 ml Balance 673 ml 30 ml -87 ml Tube Feeding 742 ml 480 ml 288 ml Other 331 ml 300 ml 350 ml Output Urine Total 400 ml 750 ml 725 ml # Bowel Movements 2 0 Imaging Last Impressions Head CT 01/20/18 0000 Signed Impressions: Service Date/Time: Sunday, January 21, 2018 16:13 - CONCLUSION: 1. Small area of encephalomalacia with some surrounding hemorrhage in the left basal ganglia most consistent with an area of hemorrhagic infarct. This is stable compared to previous exams. 2. Cortical atrophy and microvascular ischemic demyelinative change. Timmy Dumas MD Chest X-Ray 01/19/18 0000 Signed Impressions: Service Date/Time: Friday, January 19, 2018 17:12 - CONCLUSION: Trace left base atelectasis. Hu Henderson MD Gastrostomy Tube Placement 01/18/18 0000 Signed Impressions: Service Date/Time: January 16:41 - CONCLUSION: Uncomplicated gastrostomy tube replacement through an existing tract. Timmy Dumas MD Brain MRI 01/11/18 0000 Signed Impressions: Service Date/Time: January 08:45 - CONCLUSION: 1. Focal area of restricted diffusion in the left thalmus characteristic of an acute to subacute infarct. 2. GRE images demonstrate subacute hemorrhage associated with the infarct in the left thalamus. 3. GRE images also demonstrate punctate areas of microhemorrhage noted in the deep right mid parietal lobe, right occipital lobe and bilateral basal ganglia regions, left greater than right. 4. Diffuse bilateral cortical atrophy and chronic white matter changes. Luciano Morales MD Abdomen/Pelvis CT 01/09/18 0000 Signed Impressions: Service Date/Time: Tuesday, January 09, 2018 18:48 - CONCLUSION: 1. There is a sacral decubitus wound/ulcer which extends to the sacrum. Prior MRI demonstrated abnormal sacrum in the inferior aspect of the sacrum and coccyx. There is also presacral edema. These findings are highly suspicious for osteomyelitis. 2. Nonacute findings include 3 mm nonobstructing right renal stone and multi-fibroid uterus. Hu Cuenca MD Sacrum/Coccyx MRI 01/06/18 0000 Signed Impressions: Service Date/Time: Saturday, January 06, 2018 08:30 - CONCLUSION: Large decubitus ulcer posteriorly with not only bony edema and marrow replacement concerning for osteomyelitis but it extends to the presacral fat is well where there is marked enhancement and fluid on the T2-weighted sequences. The coccygeal involvement is at least 3.5 cm in length. Eliud Du MD Abdomen X-Ray 12/13/17 0000 Signed Impressions: Service Date/Time: Wednesday, December 13, 2017 14:17 - CONCLUSION: PEG tube in stomach.. Harry Dumas MD FACR Upper Extremity Ultrasound 11/06/17 0000 Signed Impressions: Service Date/Time: Monday, November 06, 2017 14:17 - CONCLUSION: Normal examination. K. Byron Perez MD Pelvis CT 10/13/17 0000 Signed Impressions: Service Date/Time: Friday, October 13, 2017 12:02 - CONCLUSION: 1. Decubitus ulcer with small abscess in the right posterior perineal region measuring 3.1 x 4.6 cm. There is also a small abscess posterior and to the left of the rectum measuring 3.2 x 2.3 cm. Jann Weber MD Neck CTA 04/10/17 0000 Signed Impressions: Service Date/Time: Monday, April 10, 2017 22:28 - CONCLUSION: The internal carotid arteries are normal bilaterally. No significant atherosclerotic disease is noted. Eliud Du MD Head CTA 04/10/17 0000 Signed Impressions: Service Date/Time: Monday, April 10, 2017 22:50 - CONCLUSION: Mild dilatation of the basilar tip without discrete aneurysm. Some narrowing of the left middle cerebral branch after the bifurcation. Prominent left thalamic hemorrhage. Eliud Du MD Procedures Peg Tube placed 05/08/17 (Dr. De Los Santos) Other Results Laboratory Tests Test 04/10/17 21:04 04/10/17 23:30 04/11/17 10:31 04/14/17 20:01 Urine Opiates Screen NEG Urine Barbiturates Screen NEG Urine Amphetamines Screen NEG Urine Benzodiazepines Screen NEG Urine Cocaine Screen NEG Urine Cannabinoids Screen NEG Nasal Screen MRSA (PCR) MRSA NOT DETECTED Troponin I 0.03 NG/ML Triglycerides Level 54 MG/DL Cholesterol Level 164 MG/DL LDL Cholesterol 81 MG/DL HDL Cholesterol 72.5 MG/DL Cholesterol/HDL Ratio 2.26 RATIO Vitamin B12 Level 228 PG/ML Folate 8.6 NG/ML Hepatitis A IgM Antibody NEGATIVE Hepatitis B Surface Antigen NEGATIVE Hepatitis B Core IgM Antibody NEGATIVE Hepatitis C Antibody NEGATIVE Test 04/19/17 04:19 05/08/17 07:53 05/28/17 13:00 06/27/17 17:30 Activated Partial Thromboplast Time 29.2 SEC Prothrombin Time 11.4 SEC Prothromb Time International Ratio 1.0 RATIO Urine Collection Type CATH Urine Collection Time 1300 Clue Cells (Wet Prep) NONE SEEN Vaginal Trichomonas (Wet Prep) NONE SEEN Vaginal Yeast (Wet Prep) NONE SEEN Test 06/28/17 04:50 10/12/17 05:40 10/13/17 06:00 10/14/17 09:10 Chlamydia trachomatis DNA (PCR) NOT DETECTED Neisseria gonorrhoeae DNA (PCR) NOT DETECTED Platelet Estimate NORMAL Platelet Morphology Comment NORMAL Red Cell Morphology Comment NORMAL Direct Bilirubin 0.2 MG/DL Indirect Bilirubin 0.2 MG/DL Lactic Acid Level 0.8 mmol/L Test 10/14/17 13:30 10/16/17 21:30 10/17/17 16:30 10/20/17 13:05 Stool C. difficile Toxin (PCR) NEGATIVE Stl C. difficile Toxin Epiderm 027 PRESUMPTIVE NEGATIVE Vancomycin Level Trough 15.7 MCG/ML Total Creatine Kinase 55 U/L Transferrin 148 MG/DL Test 11/16/17 05:17 12/04/17 11:10 12/08/17 11:00 12/23/17 08:47 Differential Total Cells Counted 100 Neutrophils % (Manual) 26 % Lymphocytes % 61 % Monocytes % 8 % Eosinophils % 5 % Neutrophils # (Manual) 0.9 TH/MM3 Prealbumin 14 MG/DL Urine Amorphous Sediment FEW Hemoglobin A1c 5.2 % Blood Urea Nitrogen 15 MG/DL Creatinine 0.36 MG/DL Random Glucose 111 MG/DL Total Protein 7.2 GM/DL Albumin 3.0 GM/DL Calcium Level 9.0 MG/DL Phosphorus Level 2.7 MG/DL Magnesium Level 2.4 MG/DL Alkaline Phosphatase 71 U/L Aspartate Amino Transf (AST/SGOT) 19 U/L Alanine Aminotransferase (ALT/SGPT) 16 U/L Total Bilirubin 0.2 MG/DL Sodium Level 140 MEQ/L Potassium Level 3.9 MEQ/L Chloride Level 103 MEQ/L Carbon Dioxide Level 31.3 MEQ/L Free Thyroxine 1.88 NG/DL Thyroid Stimulating Hormone 3rd Gen 1.270 uIU/ML Test 01/01/18 20:36 01/10/18 12:59 01/17/18 18:00 01/27/18 12:08 Urine WBC Clumps MANY Urine Calcium Oxalate Crystals OCC /hpf Urine Mucus MOD /lpf Erythrocyte Sedimentation Rate 48 mm/hr Urine Color YELLOW Urine Turbidity HAZY Urine pH 7.5 Urine Specific [place] 1.015 Urine Protein 100 mg/dL Urine Glucose (UA) NEG mg/dL Urine Ketones NEG mg/dL Urine Occult Blood SMALL Urine Nitrite NEG Urine Bilirubin NEG Urine Urobilinogen LESS THAN 2.0 MG/DL Urine Leukocyte Esterase LARGE Urine RBC 3 /hpf Urine WBC 52 /hpf Urine Squamous Epithelial Cells 1 /hpf Urine Transitional Epithelial Cells 1 /hpf Urine Bacteria MOD /hpf Urine Hyaline Casts 9 /lpf Microscopic Urinalysis Comment CATH-CULTURE IND Blood Urea Nitrogen 8 MG/DL Creatinine 0.34 MG/DL Random Glucose 91 MG/DL Albumin 3.2 GM/DL Calcium Level 9.1 MG/DL Phosphorus Level 2.9 MG/DL Magnesium Level 2.2 MG/DL Sodium Level 141 MEQ/L Potassium Level 3.9 MEQ/L Chloride Level 103 MEQ/L Carbon Dioxide Level 28.8 MEQ/L Test 01/28/18 07:17 01/28/18 12:09 01/29/18 12:50 Neutrophils (%) (Auto) 39.0 % Lymphocytes (%) (Auto) 37.7 % Monocytes (%) (Auto) 19.0 % Eosinophils (%) (Auto) 3.7 % Basophils (%) (Auto) 0.6 % Neutrophils # (Auto) 1.4 TH/MM3 Lymphocytes # (Auto) 1.4 TH/MM3 Monocytes # (Auto) 0.7 TH/MM3 Eosinophils # (Auto) 0.1 TH/MM3 Basophils # (Auto) 0.0 TH/MM3 CBC Comment DIFF FINAL Differential Comment Blood Urea Nitrogen 11 MG/DL Creatinine 0.40 MG/DL Random Glucose 84 MG/DL Calcium Level 9.2 MG/DL Sodium Level 140 MEQ/L Potassium Level 4.1 MEQ/L Chloride Level 103 MEQ/L Carbon Dioxide Level 29.2 MEQ/L Anion Gap 8 MEQ/L Estimat Glomerular Filtration Rate 195 ML/MIN White Blood Count 4.0 TH/MM3 Red Blood Count 4.45 MIL/MM3 Hemoglobin 11.9 GM/DL Hematocrit 37.1 % Mean Corpuscular Volume 83.4 FL Mean Corpuscular Hemoglobin 26.7 PG Mean Corpuscular Hemoglobin Concent 32.1 % Red Cell Distribution Width 19.3 % Platelet Count 260 TH/MM3 Mean Platelet Volume 9.3 FL Objective Remarks GENERAL: Non verbal. HEAD: Normocephalic. EYES: No scleral icterus. No injection or drainage. NECK: Supple, trachea midline. No JVD. CARDIOVASCULAR: Regular rate and rhythm without murmurs, gallops, or rubs. RESPIRATORY: Breath sounds equal bilaterally. No accessory muscle use. GASTROINTESTINAL: Abdomen soft, non-tender, nondistended. PEG tube in place without leakage. MUSCULOSKELETAL: No cyanosis, or edema. BACK: Nontender without obvious deformity. No CVA tenderness. Medications and IVs Current Medications Medications (Trade) Dose Ordered Sig/Reymundo Route Start Time Stop Time Status Last Admin (Dulcolax Supp) 10 mg DAILY PRN RECTAL 04/10/17 22:00 (Lac-Hydrin 12% Lotion) 1 applic BID TOPICAL 05/04/17 14:00 02/07/18 09:51 (Prevacid Odt) 30 mg DAILY G-TUBE 05/10/17 09:00 02/07/18 09:50 (Apresoline) 25 mg Q4HR PRN PEG 05/18/17 14:45 02/01/18 17:57 (Zofran Liq) 4 mg Q6H PRN PEG 05/26/17 10:00 02/07/18 09:50 (Tylenol) 650 mg Q6H PRN PEG 06/16/17 16:00 Future Hold 10/17/17 19:29 (Senna Liq) 8.8 mg DAILY PEG 06/29/17 09:00 Future Hold 10/17/17 10:02 (Pill Splitter) 1 ea UNSCH PRN OTHER 10/17/17 17:45 12/08/17 20:45 (Lopressor) 25 mg BID PEG 11/24/17 21:00 02/07/18 09:50 (Apresoline) 50 mg Q8HR PEG 12/12/17 22:00 02/07/18 05:50 (Santyl Oint) 1 applic DAILY TOPICAL 12/25/17 17:00 02/07/18 09:51 (Lexapro) 10 mg DAILY PEG 01/02/18 17:15 02/07/18 09:51 (Heparin Inj) 5,000 units Q12HR SQ 01/13/18 09:00 02/07/18 09:50 (Dakin'S 0.125% Soln) 50 ml DAILY TOPICAL 01/13/18 20:00 02/07/18 09:51 (Miralax) 17 gm DAILY PRN PEG 01/19/18 09:15 (Hydrodiuril) 25 mg DAILY PEG 01/19/18 09:03 02/07/18 09:50 (Lactinex) 1 tab TID PEG 01/19/18 18:00 02/07/18 12:00 (Levaquin) 750 mg DAILY@1200 PEG 01/20/18 12:00 02/21/18 11:59 02/07/18 12:01 (Procardia) 40 mg Q8HR PEG 01/25/18 06:00 02/07/18 05:50 (Catapres) 0.1 mg Q4H PRN PEG 02/01/18 22:00 (Simethicone Liq (Drops)) 40 mg QID PRN PO 02/03/18 15:15 02/07/18 09:52 (Questran 4 Gm Pkt) 4 gm Q8HR PEG 02/06/18 16:00 02/07/18 05:49 (Free Water) 200 ml Q6HR PEG 02/07/18 06:00 02/07/18 12:01 (Tyshawn Powder) 1 pack BID G-TUBE 02/07/18 09:00 02/07/18 09:51 A/P Assessment and Plan (1) Major neurocognitive disorder ICD Code: F03.90 - Unspecified dementia without behavioral disturbance (2) Hemiparesis ICD Code: G81.90 - Hemiplegia, unspecified affecting unspecified side Status: Acute (3) Intracranial hemorrhage ICD Code: I62.9 - Nontraumatic intracranial hemorrhage, unspecified Status: Chronic (4) Aphasia ICD Code: R47.01 - Aphasia Assessment and Plan 62-year-old female with history of hemorrhagic stroke and resulting neurocognitive decline. Status post hemorrhagic CVA, new acute and subacute stroke with chronic right hemiplegia and aphasia. Questionable new facial droop on 01/10; Brain MRI 01/11 showed acute to subacute left thalamic infarct with mild hemorrhagic component in patient with previous history of relatively large left thalamic CVA Neuro and neurosurgery consulted; no surgical intervention needed. Agreed to pharmacologic prophylaxis Facial droop improved UTI Ctx growing Enterobacter aerogenes. Patient received Levaquin x 14 days (01/03-) Repeat urinalysis showed Yenifer anticoagulates negative staph. Continue Diflucan until February 03. Cruz catheter placed. Pt remains afebrile, last time the Cruz was placed was January 20 Stage IV sacral pressure ulcer MRI showing bony edema and marrow replacement concerning for osteomyelitis; ID following, continue Levaquin and Flagyl until February Wound care following, S/P bedside debridement 01/11. worsening as per Nurse. continue wound care. will discuss in am with web communications specialist. History of hemorrhagic CVA Continue PT, OT, and ST Poor prognosis. Patient does not participate well with therapy Palliative care following Dysphagia Due to hemorrhagic stroke Status post PEG placement on 05/09/17, PEG tube out 01/18/2018, consult invasive radiology for PEG tube reinsertion, medically necessary. Continue tube feedings, added Simethicone. HTN Continue nifedipine 40 mg Q6H, Apresoline 50 mg Q6H, Metoprolol 100 mg BID, HCTZ 25 mg Daily Vasotec IV PRN, Clonidine PRN Hyperglycemia Glucerna for tube feeds Follow blood sugars intermittently Xeroderma on bilateral feet Lac-Hydrin 12% Lotion continued Depression Continue Lexapro 10 mg via PEG daily Nutrition Tube feeds changed to Glucerna 1.5 CONTINUOUS AT 40ML PER HOUR, bolus feeding with Tyshawn Loose stools started on Questran DVT Prophylaxis Heparin (cleared by neurosurgery) Very poor prognosis. Patient does not display any meaningful involvement with therapy. Difficult DC. Awaiting placement Discharge Planning Patient was homeless prior to admit Poor access for inpatient rehabilitation Family desires aggressive measures for therapy and placement Independent funding unavailable for placement Long-term prognosis is poor No significant capacity for regaining full functionality Palliative care following Percy Frank MD Feb 07, 2018 15:03
[2018-02-08] VITALS: BP 104/79; PULSE 77; RESP 16; TEMP 98.5; O2SAT 98
[2018-02-08 04:00] VITALS: BP 116/84; PULSE 76; RESP 16; TEMP 98.7; O2SAT 98
[2018-02-08] MEDS: NIFEdipine 20 MG CAP PEG SCH ×3 (05:32→21:16)
[2018-02-08] MEDS: FREE WATER PEG SCH ×4 (05:32→23:54)
[2018-02-08] MEDS: hydrALAZINE HCL 100 MG TAB PEG SCH ×3 (05:32→21:16)
[2018-02-08] MEDS: CHOLESTYRAMINE 4 GM PACKET PEG SCH ×3 (05:32→21:17)
[2018-02-08 08:00] VITALS: BP 122/74; PULSE 89; RESP 18; TEMP 98.3; O2SAT 96
[2018-02-08] MEDS: ESCITALOPRAM OXALATE 10 MG TAB PEG SCH (09:39)
[2018-02-08] MEDS: LACTOBACILLUS ACIDOPHILUS TAB PEG SCH ×3 (09:39→18:34)
[2018-02-08] MEDS: LANSOPRAZOLE SOLUTAB 30 MG TAB G-TUBE SCH (09:39)
[2018-02-08] MEDS: METOPROLOL TARTRATE 25 MG TAB PEG SCH ×2 (09:39→21:16)
[2018-02-08] MEDS: HYDROCHLOROTHIAZIDE 25 MG TAB PEG SCH (09:40)
[2018-02-08] MEDS: HEPARIN SODIUM - SQ 10,000 UNITS/ML VIAL SQ SCH ×2 (09:40→21:17)
[2018-02-08] MEDS: SODIUM HYPOCHLORITE 0.125% 500 ML BTL TOPICAL SCH (09:42)
[2018-02-08] MEDS: COLLAGENASE OINT 30 GM TUBE TOPICAL SCH (09:43)
[2018-02-08] MEDS: JUVEN POWDER 1 PACK G-TUBE SCH ×2 (09:46→21:00)
[2018-02-08 12:00] VITALS: BP 134/97; PULSE 83; RESP 14; TEMP 99.3; O2SAT 97
[2018-02-08] MEDS: LEVOFLOXACIN 750 MG TAB PEG SCH (13:29)
[2018-02-08] MEDS: LACTIC ACID (AMMONIUM LACTATE) 12% LOTION 225 GM BTL TOPICAL SCH ×2 (15:17→21:18)
--- NOTE | 2018-02-08 15:31 | HHI.PR ---
Subjective Remarks No overnight events, discussed with RN. Objective Vitals Vital Signs Date Time Temp Pulse Resp B/P (MAP) Pulse Ox O2 Delivery O2 Flow Rate FiO2 02/08/18 12:00 99.3 83 14 134/97 (109) 97 02/08/18 08:00 98.3 89 18 122/74 (90) 96 02/08/18 04:00 98.7 76 16 116/84 (95) 98 02/08/18 00:00 98.5 77 16 104/79 (87) 98 02/07/18 20:00 98.3 93 16 115/81 (92) 100 02/07/18 16:00 97.4 90 18 157/104 (121) 97 I/O 02/07/18 02/07/18 02/07/18 02/08/18 02/08/18 02/08/18 07:00 15:00 23:00 07:00 15:00 23:00 Intake Total 638 ml 1080 ml 877 ml Output Total 725 ml 1100 ml 450 ml Balance -87 ml -20 ml 427 ml Tube Feeding 288 ml 480 ml 477 ml Other 350 ml 600 ml 400 ml Output Urine Total 725 ml 1100 ml 450 ml # Bowel Movements 0 2 Objective Remarks GENERAL: Patient lying in bed, appears comfortable. Nods yes/no to questions. EYES: No scleral icterus. No injection or drainage. NECK: Supple, trachea midline. No JVD. CARDIOVASCULAR: Regular rate and rhythm without murmurs, gallops, or rubs. RESPIRATORY: Breath sounds equal bilaterally. No accessory muscle use. GASTROINTESTINAL: Abdomen soft, non-tender, nondistended. PEG tube in place. MUSCULOSKELETAL: No cyanosis, or edema. Awake, aphasic. Still follows some commands, good handgrip, close her eyes on command. Positive for right facial droop. Increased tone on the right arm and right leg, 3/5, 4/5 on the left. Procedures Peg Tube placed 05/08/17 (Dr. De Los Santos) A/P Problem List: (1) Major neurocognitive disorder ICD Code: F03.90 - Unspecified dementia without behavioral disturbance (2) Hemiparesis ICD Code: G81.90 - Hemiplegia, unspecified affecting unspecified side Status: Acute (3) Intracranial hemorrhage ICD Code: I62.9 - Nontraumatic intracranial hemorrhage, unspecified Status: Chronic (4) Aphasia ICD Code: R47.01 - Aphasia Assessment and Plan 62-year-old female with history of hemorrhagic stroke and resulting neurocognitive decline. Status post hemorrhagic CVA, new acute and subacute stroke with chronic right hemiplegia and aphasia. Questionable new facial droop on 01/10; Brain MRI 01/11 showed acute to subacute left thalamic infarct with mild hemorrhagic component in patient with previous history of relatively large left thalamic CVA Neuro and neurosurgery consulted; no surgical intervention needed. Agreed to pharmacologic prophylaxis Facial droop improved UTI Ctx growing Enterobacter aerogenes. Patient received Levaquin x 14 days (01/03-) Repeat urinalysis showed Yenifer anticoagulates negative staph. Continue Diflucan until February 03. Cruz catheter placed. Pt remains afebrile Vomiting -Changed to feeding tube continuous, awaiting dietary consult, resolved. Stage IV sacral pressure ulcer MRI showing bony edema and marrow replacement concerning for osteomyelitis; ID following, continue Levaquin and Flagyl until February Wound care following, S/P bedside debridement 01/11 History of hemorrhagic CVA Continue PT, OT, and ST Poor prognosis. Patient does not participate well with therapy Palliative care following Dysphagia Due to hemorrhagic stroke Status post PEG placement on 05/09/17, PEG tube out 01/18/2018, consult invasive radiology for PEG tube reinsertion, medically necessary. Continue tube feedings HTN Continue nifedipine 40 mg Q6H, Apresoline 50 mg Q6H, Metoprolol 100 mg BID, HCTZ 25 mg Daily Vasotec IV PRN, Clonidine PRN Hyperglycemia Glucerna for tube feeds Follow blood sugars intermittently Xeroderma on bilateral feet Lac-Hydrin 12% Lotion continued Depression Continue Lexapro 10 mg via PEG daily Nutrition Tube feeds changed to Glucerna 1.5 continuous, bolus feeding with Tyshawn DVT Prophylaxis Heparin (cleared by neurosurgery) No change in management Discharge Planning Patient was homeless prior to admit Poor access for inpatient rehabilitation Family desires aggressive measures for therapy and placement Independent funding unavailable for placement Long-term prognosis is poor No significant capacity for regaining full functionality Palliative care following Very poor prognosis. Patient does not display any meaningful involvement with therapy. Difficult DC. Awaiting placement Nolvia Salomon MD Feb 08, 2018 15:31
[2018-02-08 16:00] VITALS: BP 143/87; PULSE 86; RESP 14; TEMP 99.2; O2SAT 99
[2018-02-08 20:00] VITALS: BP 125/88; PULSE 88; RESP 20; TEMP 98.6; O2SAT 98
[2018-02-09] VITALS (7 sets, daily range): BP systolic 114–166; BP diastolic 85–110; PULSE 74–110; RESP 18–22; TEMP 97.6–99.3; O2SAT 96–100
[2018-02-09] MEDS: FREE WATER PEG SCH ×4 (05:14→23:35)
[2018-02-09] MEDS: NIFEdipine 20 MG CAP PEG SCH ×3 (05:14→21:14)
[2018-02-09] MEDS: CHOLESTYRAMINE 4 GM PACKET PEG SCH ×3 (05:14→21:11)
[2018-02-09] MEDS: hydrALAZINE HCL 100 MG TAB PEG SCH ×3 (05:14→21:11)
--- NOTE | 2018-02-09 09:11 | HHI.PR ---
Subjective Remarks nursing specialist Notes: Admission date 04/10/17 Middle-aged very pleasant female brought in by ambulance after being found in a park sitting next to a bench with altered mental status. Unknown time of onset. Patient was found by children playing in the park. Upon EMS arrival they noted right-sided weakness with a leftward gaze. Patient is nonverbal, she is following commands and is moving her left upper and left lower extremity. EKG was performed in the field and shows ST elevations in V1 through V3 with ST depressions and T-wave inversions in V5 and V6, therefore STEMI alert was also called by EMS. Patient was also notably hypertensive with blood pressures of 250s over 150s. Upon arrival to the emergency department the patient is awake, nonverbal, follows commands, protecting her airway, is able to move her left arm and left leg, however is unable to move her right arm and right leg. Patient was started on a Cardene drip for suspected intracranial hemorrhage and promptly taken to CT scan. At 8:05 PM case was discussed by with on-call pipe threading machine operator Dr. Quarles who agrees that this is most likely an intracranial hemorrhage based on clinical presentation, therefore STEMI alert was not initiated. CT of the head confirmed thalamic bleed with IVH extension. 02/09: Seen in her bedroom, discussed with nurse, patient stable in her bedroom , no changes to anterior assessment, breathing well, no complaint Objective Vital Signs Date Time Temp Pulse Resp B/P (MAP) Pulse Ox O2 Delivery O2 Flow Rate FiO2 02/09/18 04:00 97.7 82 20 118/85 (96) 99 02/09/18 00:00 98.7 74 20 114/85 (95) 100 02/08/18 20:00 98.6 88 20 125/88 (100) 98 02/08/18 16:00 99.2 86 14 143/87 (105) 99 02/08/18 12:00 99.3 83 14 134/97 (109) 97 I/O 02/08/18 02/08/18 02/08/18 02/09/18 02/09/18 02/09/18 06:59 14:59 22:59 06:59 14:59 22:59 Intake Total 877 ml 943 ml 980 ml Output Total 450 ml 1450.0 ml 950 ml Balance 427 ml -507.0 ml 30 ml Intake Oral 0 ml IV Total 0 ml Tube Feeding 477 ml 493 ml 480 ml Other 400 ml 450 ml 500 ml Output Urine Total 450 ml 1450 ml 950 ml Emesis 0 ml Tube Feeding Residual Discard 0 ml # Bowel Movements 0 1 Imaging Last Impressions Head CT 01/20/18 0000 Signed Impressions: Service Date/Time: Sunday, January 21, 2018 16:13 - CONCLUSION: 1. Small area of encephalomalacia with some surrounding hemorrhage in the left basal ganglia most consistent with an area of hemorrhagic infarct. This is stable compared to previous exams. 2. Cortical atrophy and microvascular ischemic demyelinative change. Timmy Dumas MD Chest X-Ray 01/19/18 0000 Signed Impressions: Service Date/Time: Friday, January 19, 2018 17:12 - CONCLUSION: Trace left base atelectasis. Hu Henderson MD Gastrostomy Tube Placement 01/18/18 0000 Signed Impressions: Service Date/Time: January 16:41 - CONCLUSION: Uncomplicated gastrostomy tube replacement through an existing tract. Timmy Dumas MD Brain MRI 01/11/18 0000 Signed Impressions: Service Date/Time: January 08:45 - CONCLUSION: 1. Focal area of restricted diffusion in the left thalmus characteristic of an acute to subacute infarct. 2. GRE images demonstrate subacute hemorrhage associated with the infarct in the left thalamus. 3. GRE images also demonstrate punctate areas of microhemorrhage noted in the deep right mid parietal lobe, right occipital lobe and bilateral basal ganglia regions, left greater than right. 4. Diffuse bilateral cortical atrophy and chronic white matter changes. Luciano Morales MD Abdomen/Pelvis CT 01/09/18 0000 Signed Impressions: Service Date/Time: Tuesday, January 09, 2018 18:48 - CONCLUSION: 1. There is a sacral decubitus wound/ulcer which extends to the sacrum. Prior MRI demonstrated abnormal sacrum in the inferior aspect of the sacrum and coccyx. There is also presacral edema. These findings are highly suspicious for osteomyelitis. 2. Nonacute findings include 3 mm nonobstructing right renal stone and multi-fibroid uterus. Hu Cuenca MD Sacrum/Coccyx MRI 01/06/18 0000 Signed Impressions: Service Date/Time: Saturday, January 06, 2018 08:30 - CONCLUSION: Large decubitus ulcer posteriorly with not only bony edema and marrow replacement concerning for osteomyelitis but it extends to the presacral fat is well where there is marked enhancement and fluid on the T2-weighted sequences. The coccygeal involvement is at least 3.5 cm in length. Eliud Du MD Abdomen X-Ray 12/13/17 0000 Signed Impressions: Service Date/Time: Wednesday, December 13, 2017 14:17 - CONCLUSION: PEG tube in stomach.. Harry Dumas MD FACR Upper Extremity Ultrasound 11/06/17 0000 Signed Impressions: Service Date/Time: Monday, November 06, 2017 14:17 - CONCLUSION: Normal examination. Kelby Perez MD Pelvis CT 10/13/17 0000 Signed Impressions: Service Date/Time: Friday, October 13, 2017 12:02 - CONCLUSION: 1. Decubitus ulcer with small abscess in the right posterior perineal region measuring 3.1 x 4.6 cm. There is also a small abscess posterior and to the left of the rectum measuring 3.2 x 2.3 cm. Jann Weber MD Neck CTA 04/10/17 0000 Signed Impressions: Service Date/Time: Monday, April 10, 2017 22:28 - CONCLUSION: The internal carotid arteries are normal bilaterally. No significant atherosclerotic disease is noted. Eliud Du MD Head CTA 04/10/17 0000 Signed Impressions: Service Date/Time: Monday, April 10, 2017 22:50 - CONCLUSION: Mild dilatation of the basilar tip without discrete aneurysm. Some narrowing of the left middle cerebral branch after the bifurcation. Prominent left thalamic hemorrhage. Eliud Du MD Procedures Peg Tube placed 05/08/17 (Dr. De Los Santos) Other Results Laboratory Tests Test 04/10/17 21:04 04/10/17 23:30 04/11/17 10:31 04/14/17 20:01 Urine Opiates Screen NEG Urine Barbiturates Screen NEG Urine Amphetamines Screen NEG Urine Benzodiazepines Screen NEG Urine Cocaine Screen NEG Urine Cannabinoids Screen NEG Nasal Screen MRSA (PCR) MRSA NOT DETECTED Troponin I 0.03 NG/ML Triglycerides Level 54 MG/DL Cholesterol Level 164 MG/DL LDL Cholesterol 81 MG/DL HDL Cholesterol 72.5 MG/DL Cholesterol/HDL Ratio 2.26 RATIO Vitamin B12 Level 228 PG/ML Folate 8.6 NG/ML Hepatitis A IgM Antibody NEGATIVE Hepatitis B Surface Antigen NEGATIVE Hepatitis B Core IgM Antibody NEGATIVE Hepatitis C Antibody NEGATIVE Test 04/19/17 04:19 05/08/17 07:53 05/28/17 13:00 06/27/17 17:30 Activated Partial Thromboplast Time 29.2 SEC Prothrombin Time 11.4 SEC Prothromb Time International Ratio 1.0 RATIO Urine Collection Type CATH Urine Collection Time 1300 Clue Cells (Wet Prep) NONE SEEN Vaginal Trichomonas (Wet Prep) NONE SEEN Vaginal Yeast (Wet Prep) NONE SEEN Test 06/28/17 04:50 10/12/17 05:40 10/13/17 06:00 10/14/17 09:10 Chlamydia trachomatis DNA (PCR) NOT DETECTED Neisseria gonorrhoeae DNA (PCR) NOT DETECTED Platelet Estimate NORMAL Platelet Morphology Comment NORMAL Red Cell Morphology Comment NORMAL Direct Bilirubin 0.2 MG/DL Indirect Bilirubin 0.2 MG/DL Lactic Acid Level 0.8 mmol/L Test 10/14/17 13:30 10/16/17 21:30 10/17/17 16:30 10/20/17 13:05 Stool C. difficile Toxin (PCR) NEGATIVE Stl C. difficile Toxin Epiderm 027 PRESUMPTIVE NEGATIVE Vancomycin Level Trough 15.7 MCG/ML Total Creatine Kinase 55 U/L Transferrin 148 MG/DL Test 11/16/17 05:17 12/04/17 11:10 12/08/17 11:00 12/23/17 08:47 Differential Total Cells Counted 100 Neutrophils % (Manual) 26 % Lymphocytes % 61 % Monocytes % 8 % Eosinophils % 5 % Neutrophils # (Manual) 0.9 TH/MM3 Prealbumin 14 MG/DL Urine Amorphous Sediment FEW Hemoglobin A1c 5.2 % Blood Urea Nitrogen 15 MG/DL Creatinine 0.36 MG/DL Random Glucose 111 MG/DL Total Protein 7.2 GM/DL Albumin 3.0 GM/DL Calcium Level 9.0 MG/DL Phosphorus Level 2.7 MG/DL Magnesium Level 2.4 MG/DL Alkaline Phosphatase 71 U/L Aspartate Amino Transf (AST/SGOT) 19 U/L Alanine Aminotransferase (ALT/SGPT) 16 U/L Total Bilirubin 0.2 MG/DL Sodium Level 140 MEQ/L Potassium Level 3.9 MEQ/L Chloride Level 103 MEQ/L Carbon Dioxide Level 31.3 MEQ/L Free Thyroxine 1.88 NG/DL Thyroid Stimulating Hormone 3rd Gen 1.270 uIU/ML Test 01/01/18 20:36 01/10/18 12:59 01/17/18 18:00 01/27/18 12:08 Urine WBC Clumps MANY Urine Calcium Oxalate Crystals OCC /hpf Urine Mucus MOD /lpf Erythrocyte Sedimentation Rate 48 mm/hr Urine Color YELLOW Urine Turbidity HAZY Urine pH 7.5 Urine Specific [place] 1.015 Urine Protein 100 mg/dL Urine Glucose (UA) NEG mg/dL Urine Ketones NEG mg/dL Urine Occult Blood SMALL Urine Nitrite NEG Urine Bilirubin NEG Urine Urobilinogen LESS THAN 2.0 MG/DL Urine Leukocyte Esterase LARGE Urine RBC 3 /hpf Urine WBC 52 /hpf Urine Squamous Epithelial Cells 1 /hpf Urine Transitional Epithelial Cells 1 /hpf Urine Bacteria MOD /hpf Urine Hyaline Casts 9 /lpf Microscopic Urinalysis Comment CATH-CULTURE IND Blood Urea Nitrogen 8 MG/DL Creatinine 0.34 MG/DL Random Glucose 91 MG/DL Albumin 3.2 GM/DL Calcium Level 9.1 MG/DL Phosphorus Level 2.9 MG/DL Magnesium Level 2.2 MG/DL Sodium Level 141 MEQ/L Potassium Level 3.9 MEQ/L Chloride Level 103 MEQ/L Carbon Dioxide Level 28.8 MEQ/L Test 01/28/18 07:17 01/28/18 12:09 01/29/18 12:50 Neutrophils (%) (Auto) 39.0 % Lymphocytes (%) (Auto) 37.7 % Monocytes (%) (Auto) 19.0 % Eosinophils (%) (Auto) 3.7 % Basophils (%) (Auto) 0.6 % Neutrophils # (Auto) 1.4 TH/MM3 Lymphocytes # (Auto) 1.4 TH/MM3 Monocytes # (Auto) 0.7 TH/MM3 Eosinophils # (Auto) 0.1 TH/MM3 Basophils # (Auto) 0.0 TH/MM3 CBC Comment DIFF FINAL Differential Comment Blood Urea Nitrogen 11 MG/DL Creatinine 0.40 MG/DL Random Glucose 84 MG/DL Calcium Level 9.2 MG/DL Sodium Level 140 MEQ/L Potassium Level 4.1 MEQ/L Chloride Level 103 MEQ/L Carbon Dioxide Level 29.2 MEQ/L Anion Gap 8 MEQ/L Estimat Glomerular Filtration Rate 195 ML/MIN White Blood Count 4.0 TH/MM3 Red Blood Count 4.45 MIL/MM3 Hemoglobin 11.9 GM/DL Hematocrit 37.1 % Mean Corpuscular Volume 83.4 FL Mean Corpuscular Hemoglobin 26.7 PG Mean Corpuscular Hemoglobin Concent 32.1 % Red Cell Distribution Width 19.3 % Platelet Count 260 TH/MM3 Mean Platelet Volume 9.3 FL Objective Remarks GENERAL: Non verbal. HEAD: Normocephalic. EYES: No scleral icterus. No injection or drainage. NECK: Supple, trachea midline. No JVD. CARDIOVASCULAR: Regular rate and rhythm without murmurs, gallops, or rubs. RESPIRATORY: Breath sounds equal bilaterally. No accessory muscle use. GASTROINTESTINAL: Abdomen soft, non-tender, nondistended. PEG tube in place MUSCULOSKELETAL: No cyanosis, or edema. BACK: Nontender without obvious deformity. No CVA tenderness. Medications and IVs Current Medications Medications (Trade) Dose Ordered Sig/Reymundo Route Start Time Stop Time Status Last Admin (Dulcolax Supp) 10 mg DAILY PRN RECTAL 04/10/17 22:00 (Lac-Hydrin 12% Lotion) 1 applic BID TOPICAL 05/04/17 14:00 02/08/18 21:18 (Prevacid Odt) 30 mg DAILY G-TUBE 05/10/17 09:00 02/08/18 09:39 (Apresoline) 25 mg Q4HR PRN PEG 05/18/17 14:45 02/01/18 17:57 (Zofran Liq) 4 mg Q6H PRN PEG 05/26/17 10:00 02/07/18 09:50 (Tylenol) 650 mg Q6H PRN PEG 06/16/17 16:00 Future Hold 10/17/17 19:29 (Senna Liq) 8.8 mg DAILY PEG 06/29/17 09:00 Future Hold 10/17/17 10:02 (Pill Splitter) 1 ea UNSCH PRN OTHER 10/17/17 17:45 12/08/17 20:45 (Lopressor) 25 mg BID PEG 11/24/17 21:00 02/08/18 21:16 (Apresoline) 50 mg Q8HR PEG 12/12/17 22:00 02/09/18 05:14 (Santyl Oint) 1 applic DAILY TOPICAL 12/25/17 17:00 02/08/18 09:43 (Lexapro) 10 mg DAILY PEG 01/02/18 17:15 02/08/18 09:39 (Heparin Inj) 5,000 units Q12HR SQ 01/13/18 09:00 02/08/18 21:17 (Dakin'S 0.125% Soln) 50 ml DAILY TOPICAL 01/13/18 20:00 02/08/18 09:42 (Miralax) 17 gm DAILY PRN PEG 01/19/18 09:15 (Hydrodiuril) 25 mg DAILY PEG 01/19/18 09:03 02/08/18 09:40 (Lactinex) 1 tab TID PEG 01/19/18 18:00 02/08/18 18:34 (Levaquin) 750 mg DAILY@1200 PEG 01/20/18 12:00 02/21/18 11:59 02/08/18 13:29 (Procardia) 40 mg Q8HR PEG 01/25/18 06:00 02/09/18 05:14 (Catapres) 0.1 mg Q4H PRN PEG 02/01/18 22:00 (Simethicone Liq (Drops)) 40 mg QID PRN PO 02/03/18 15:15 02/07/18 09:52 (Questran 4 Gm Pkt) 4 gm Q8HR PEG 02/06/18 16:00 02/09/18 05:14 (Free Water) 200 ml Q6HR PEG 02/07/18 06:00 02/08/18 18:00 (Tyshawn Powder) 1 pack BID G-TUBE 02/07/18 09:00 02/08/18 21:00 A/P Assessment and Plan (1) Major neurocognitive disorder ICD Code: F03.90 - Unspecified dementia without behavioral disturbance (2) Hemiparesis ICD Code: G81.90 - Hemiplegia, unspecified affecting unspecified side Status: Acute (3) Intracranial hemorrhage ICD Code: I62.9 - Nontraumatic intracranial hemorrhage, unspecified Status: Chronic (4) Aphasia ICD Code: R47.01 - Aphasia Assessment and Plan 62-year-old female with history of hemorrhagic stroke and resulting neurocognitive decline. Status post hemorrhagic CVA, new acute and subacute stroke with chronic right hemiplegia and aphasia. Questionable new facial droop on 01/10; Brain MRI 01/11 showed acute to subacute left thalamic infarct with mild hemorrhagic component in patient with previous history of relatively large left thalamic CVA Neuro and neurosurgery consulted; no surgical intervention needed. Agreed to pharmacologic prophylaxis Facial droop improved UTI Ctx growing Enterobacter aerogenes. Patient received Levaquin x 14 days (01/03-) Repeat urinalysis showed Yenifer anticoagulates negative staph. Continue Diflucan until February 03. Cruz catheter placed. Pt remains afebrile, last time the Cruz was placed was January 20 Stage IV sacral pressure ulcer MRI showing bony edema and marrow replacement concerning for osteomyelitis; ID following, continue Levaquin and Flagyl until February Wound care following, S/P bedside debridement 01/11. worsening as per Nurse. continue wound care. will discuss in am with student development specialist. History of hemorrhagic CVA Continue PT, OT, and ST Poor prognosis. Patient does not participate well with therapy Palliative care following Dysphagia Due to hemorrhagic stroke Status post PEG placement on 05/09/17, PEG tube out 01/18/2018, consult invasive radiology for PEG tube reinsertion, medically necessary. Continue tube feedings, added Simethicone. HTN Continue nifedipine 40 mg Q6H, Apresoline 50 mg Q6H, Metoprolol 100 mg BID, HCTZ 25 mg Daily Vasotec IV PRN, Clonidine PRN Hyperglycemia Glucerna for tube feeds Follow blood sugars intermittently Xeroderma on bilateral feet Lac-Hydrin 12% Lotion continued Depression Continue Lexapro 10 mg via PEG daily Nutrition Tube feeds changed to Glucerna 1.5 CONTINUOUS AT 40ML PER HOUR, bolus feeding with Tyshawn Loose stools started on Questran DVT Prophylaxis Heparin (cleared by neurosurgery) Very poor prognosis. Patient does not display any meaningful involvement with therapy. Difficult DC. Awaiting placement Discharge Planning Patient was homeless prior to admit Poor access for inpatient rehabilitation Family desires aggressive measures for therapy and placement Independent funding unavailable for placement Long-term prognosis is poor No significant capacity for regaining full functionality Palliative care following Percy Frank MD Feb 09, 2018 09:11
[2018-02-09] MEDS: ONDANSETRON HCL 4 MG/5 ML UDC PEG PRN (09:37)
[2018-02-09] MEDS: HEPARIN SODIUM - SQ 10,000 UNITS/ML VIAL SQ SCH ×2 (09:37→21:10)
[2018-02-09] MEDS: SIMETHICONE SUSP DROPS 40 MG/0.6 ML 30 ML BTL PO PRN (09:37)
[2018-02-09] MEDS: ESCITALOPRAM OXALATE 10 MG TAB PEG SCH (09:37)
[2018-02-09] MEDS: HYDROCHLOROTHIAZIDE 25 MG TAB PEG SCH (09:37)
[2018-02-09] MEDS: LACTOBACILLUS ACIDOPHILUS TAB PEG SCH ×3 (09:37→16:55)
[2018-02-09] MEDS: METOPROLOL TARTRATE 25 MG TAB PEG SCH ×2 (09:37→21:11)
[2018-02-09] MEDS: LANSOPRAZOLE SOLUTAB 30 MG TAB G-TUBE SCH (09:37)
[2018-02-09] MEDS: LACTIC ACID (AMMONIUM LACTATE) 12% LOTION 225 GM BTL TOPICAL SCH ×2 (09:38→21:16)
[2018-02-09] MEDS: JUVEN POWDER 1 PACK G-TUBE SCH ×2 (09:38→21:00)
[2018-02-09] MEDS: SODIUM HYPOCHLORITE 0.125% 500 ML BTL TOPICAL SCH (09:38)
[2018-02-09] MEDS: COLLAGENASE OINT 30 GM TUBE TOPICAL SCH (09:38)
[2018-02-09] MEDS: LEVOFLOXACIN 750 MG TAB PEG SCH (12:05)
[2018-02-10 00:05] VITALS: BP 174/94; PULSE 107; RESP 20; TEMP 98.8; O2SAT 99
[2018-02-10 03:46] VITALS: BP 155/88; PULSE 93; RESP 20; TEMP 99.1; O2SAT 100
[2018-02-10] MEDS: hydrALAZINE HCL 100 MG TAB PEG SCH ×2 (05:22→18:30)
[2018-02-10] MEDS: FREE WATER PEG SCH ×5 (05:22→18:31)
[2018-02-10] MEDS: NIFEdipine 20 MG CAP PEG SCH ×3 (05:22→22:40)
[2018-02-10] MEDS: CHOLESTYRAMINE 4 GM PACKET PEG SCH ×3 (05:22→22:41)
[2018-02-10 08:00] VITALS: BP 130/78; PULSE 115; RESP 20; TEMP 99.8; O2SAT 100
--- NOTE | 2018-02-10 09:14 | HHI.PR ---
Subjective Remarks Pt seen and examined. VS reviewed. D/W nursing. No acute changes in status. Pt following simple commands and communicates with shaking her head at times but remains nonverbal. She is alert and watching TV. Wound care following sacral wound. Tolerating TF. BP has been up throughout the night but per nursing BP has bottomed out with PRNs. Objective Vitals Vital Signs Date Time Temp Pulse Resp B/P (MAP) Pulse Ox O2 Delivery O2 Flow Rate FiO2 02/10/18 03:46 99.1 93 20 155/88 (110) 100 02/10/18 00:05 98.8 107 20 174/94 (120) 99 02/09/18 21:17 99.3 98 20 166/99 (121) 99 02/09/18 20:00 96 20 142/102 (115) 98 02/09/18 16:00 97.6 108 20 134/98 (110) 99 02/09/18 12:00 98.4 100 22 150/108 (122) 97 I/O 02/09/18 02/09/18 02/09/18 02/10/18 02/10/18 02/10/18 07:00 15:00 23:00 07:00 15:00 23:00 Intake Total 980 ml 980 ml Output Total 950 ml 0 ml 550 ml Balance 30 ml 0 ml 430 ml Intake Oral 0 ml 0 ml IV Total 0 ml 0 ml Tube Feeding 480 ml 480 ml Other 500 ml 500 ml Output Urine Total 950 ml 550 ml Emesis 0 ml 0 ml Tube Feeding Residual Discard 0 ml # Bowel Movements 1 2 Objective Remarks GENERAL: Thin female laying in bed. Nonverbal but following simple commands and making eye contact. SKIN: From 01/06: large stage IV sacral ulcer with yellow drainage. No obvious fecal material. Not examined today. HEENT: Normocephalic.No scleral icterus. No injection or drainage. NECK: Supple, trachea midline. No JVD or lymphadenopathy. CARDIOVASCULAR: Regular rate and rhythm without murmurs, gallops, or rubs. 2+ pedal pulses. RESPIRATORY: Breath sounds equal bilaterally. No accessory muscle use. GASTROINTESTINAL: Abdomen soft, non-tender, nondistended. MUSCULOSKELETAL: No cyanosis or edema. NEUROLOGICAL: Awake, nonverbal. Responds to commands such as hand linseed oil refiner. Cloth Bolt Bander strength L>>R. No obvious facial droop. Procedures Peg Tube placed 05/08/17 (Dr. De Los Santos) A/P Problem List: (1) Major neurocognitive disorder ICD Code: F03.90 - Unspecified dementia without behavioral disturbance (2) Hemiparesis ICD Code: G81.90 - Hemiplegia, unspecified affecting unspecified side Status: Acute (3) Intracranial hemorrhage ICD Code: I62.9 - Nontraumatic intracranial hemorrhage, unspecified Status: Chronic (4) Aphasia ICD Code: R47.01 - Aphasia Assessment and Plan 62-year-old female with history of hemorrhagic stroke and resulting neurocognitive decline. Status post hemorrhagic CVA, new acute and subacute stroke with chronic right hemiplegia and aphasia Continue PT, OT, and ST Palliative care following Associated aphasia/dysphagia s/p PEG placement on 05/09/17 Continue tube feedings Questionable new facial droop on 01/10; Brain MRI 01/11 showed acute to subacute left thalamic infarct with mild hemorrhagic component in patient with previous history of relatively large left thalamic CVA Neuro and neurosurgery consulted; no surgical intervention needed. Agreed to pharmacologic prophylaxis UTI Ctx growing Enterobacter aerogenes. s/p treatment w/ Levaquin x 14 days (01/03-) Repeat culture on 01/17 showed Yenifer albicans and patient completed a course of Diflucan Pt remains afebrile, last time the Cruz was placed was 01/17 Sacral ulcer Stage IV pressure ulcer MRI showing bony edema and marrow replacement concerning for osteomyelitis; ID consulted and recommended six weeks of Levaquin and Flagyl (stop date February 21) Wound care following, S/P bedside debridement 01/11 HTN Continue nifedipine 40 mg Q6H, Lisinopril 10 mg BID, Apresoline 50 mg Q6H, Metoprolol 100 mg BID, HCTZ 25 mg Daily Vasotec IV PRN, Clonidine PRN Continue to monitor and if remains elevated throughout the day/night will increase Lisinopril Hyperglycemia Glucerna for tube feeds Follow blood sugars intermittently Xeroderma on bilateral feet Lac-Hydrin 12% Lotion continued Depression Continue Lexapro 10 mg via PEG daily Nutrition Tube feeds changed to Glucerna 1.5 , bolus feeding with Tyshawn DVT Prophylaxis Heparin (cleared by neurosurgery) Discharge Planning Patient was homeless prior to admit Poor access for inpatient rehabilitation Family desires aggressive measures for therapy and placement Independent funding unavailable for placement Long-term prognosis is poor No significant capacity for regaining full functionality Palliative care following Kat Harris MD Feb 10, 2018 09:14
[2018-02-10] MEDS: LACTOBACILLUS ACIDOPHILUS TAB PEG SCH ×3 (10:37→18:30)
[2018-02-10] MEDS: HEPARIN SODIUM - SQ 10,000 UNITS/ML VIAL SQ SCH ×2 (10:38→22:40)
[2018-02-10] MEDS: ESCITALOPRAM OXALATE 10 MG TAB PEG SCH (10:38)
[2018-02-10] MEDS: LEVOFLOXACIN 750 MG TAB PEG SCH (10:38)
[2018-02-10] MEDS: HYDROCHLOROTHIAZIDE 25 MG TAB PEG SCH (10:38)
[2018-02-10] MEDS: METOPROLOL TARTRATE 25 MG TAB PEG SCH ×2 (10:38→22:41)
[2018-02-10] MEDS: LANSOPRAZOLE SOLUTAB 30 MG TAB G-TUBE SCH (10:39)
[2018-02-10] MEDS: JUVEN POWDER 1 PACK G-TUBE SCH ×2 (10:39→21:00)
[2018-02-10] MEDS: COLLAGENASE OINT 30 GM TUBE TOPICAL SCH (10:39)
[2018-02-10] MEDS: SODIUM HYPOCHLORITE 0.125% 500 ML BTL TOPICAL SCH (10:39)
[2018-02-10] MEDS: LACTIC ACID (AMMONIUM LACTATE) 12% LOTION 225 GM BTL TOPICAL SCH ×2 (10:39→21:00)
[2018-02-10 12:00] VITALS: BP 148/90; PULSE 100; RESP 20; TEMP 99; O2SAT 100
[2018-02-10 16:00] VITALS: BP 158/84; PULSE 110; RESP 20; TEMP 98.9; O2SAT 100
[2018-02-10 20:00] VITALS: BP 121/83; PULSE 82; RESP 17; TEMP 97.2; O2SAT 98
[2018-02-10] MEDS: hydrALAZINE HCL 50 MG TAB PEG SCH (22:41)
[2018-02-11] VITALS: BP 121/83; PULSE 82; RESP 17; TEMP 97.2; O2SAT 98
[2018-02-11 04:00] VITALS: BP 122/91; PULSE 93; RESP 16; TEMP 97.3; O2SAT 98
[2018-02-11] MEDS: FREE WATER PEG SCH ×4 (06:00→17:26)
[2018-02-11] MEDS: hydrALAZINE HCL 50 MG TAB PEG SCH ×3 (06:04→21:08)
[2018-02-11] MEDS: CHOLESTYRAMINE 4 GM PACKET PEG SCH ×3 (06:04→21:09)
[2018-02-11] MEDS: NIFEdipine 20 MG CAP PEG SCH ×3 (06:04→21:08)
[2018-02-11] MEDS: ESCITALOPRAM OXALATE 10 MG TAB PEG SCH (10:00)
[2018-02-11] MEDS: METOPROLOL TARTRATE 25 MG TAB PEG SCH ×2 (10:00→21:08)
[2018-02-11] MEDS: JUVEN POWDER 1 PACK G-TUBE SCH ×2 (10:01→21:09)
[2018-02-11] MEDS: LACTOBACILLUS ACIDOPHILUS TAB PEG SCH ×3 (10:01→17:26)
[2018-02-11] MEDS: LANSOPRAZOLE SOLUTAB 30 MG TAB G-TUBE SCH (10:01)
[2018-02-11] MEDS: HYDROCHLOROTHIAZIDE 25 MG TAB PEG SCH (10:01)
[2018-02-11] MEDS: LACTIC ACID (AMMONIUM LACTATE) 12% LOTION 225 GM BTL TOPICAL SCH ×2 (10:02→21:09)
[2018-02-11] MEDS: HEPARIN SODIUM - SQ 10,000 UNITS/ML VIAL SQ SCH ×2 (10:02→21:09)
[2018-02-11] MEDS: SODIUM HYPOCHLORITE 0.125% 500 ML BTL TOPICAL SCH (10:02)
[2018-02-11] MEDS: COLLAGENASE OINT 30 GM TUBE TOPICAL SCH (10:02)
--- NOTE | 2018-02-11 12:46 | HHI.PR ---
Subjective Remarks Pt seen and examined. VS reviewed. D/W nursing. No acute changes except concern for worsening sacral wound; planning on reaching out to wound care. Objective Vitals Vital Signs Date Time Temp Pulse Resp B/P (MAP) Pulse Ox O2 Delivery O2 Flow Rate FiO2 02/11/18 04:00 97.3 93 16 122/91 (101) 98 02/11/18 00:00 97.2 82 17 121/83 (96) 98 02/10/18 20:00 97.2 82 17 121/83 (96) 98 02/10/18 16:00 98.9 110 20 158/84 (108) 100 I/O 02/10/18 02/10/18 02/10/18 02/11/18 02/11/18 02/11/18 07:00 15:00 23:00 07:00 15:00 23:00 Intake Total 980 ml 1080 ml Output Total 550 ml 850 ml 1225 ml Balance 430 ml 230 ml -1225 ml Intake Oral 0 ml IV Total 0 ml Tube Feeding 480 ml 480 ml Other 500 ml 600 ml Output Urine Total 550 ml 850 ml 1225 ml Emesis 0 ml # Bowel Movements 2 0 1 Objective Remarks GENERAL: Thin female laying in bed. Nonverbal but following simple commands and making eye contact. HEENT: Normocephalic.No scleral icterus. No injection or drainage. NECK: Supple, trachea midline. No JVD or lymphadenopathy. CARDIOVASCULAR: Regular rate and rhythm without murmurs, gallops, or rubs. 2+ pedal pulses. RESPIRATORY: Breath sounds equal bilaterally. No accessory muscle use. GASTROINTESTINAL: Abdomen soft, non-tender, nondistended. MUSCULOSKELETAL: No cyanosis or edema. NEUROLOGICAL: Awake, nonverbal. 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 Car Sales Associate strength L>>R. No obvious facial droop. Procedures Peg Tube placed 05/08/17 (Dr. De Los Santos) A/P Problem List: (1) Major neurocognitive disorder ICD Code: F03.90 - Unspecified dementia without behavioral disturbance (2) Hemiparesis ICD Code: G81.90 - Hemiplegia, unspecified affecting unspecified side Status: Acute (3) Intracranial hemorrhage ICD Code: I62.9 - Nontraumatic intracranial hemorrhage, unspecified Status: Chronic (4) Aphasia ICD Code: R47.01 - Aphasia Assessment and Plan 62-year-old female with history of hemorrhagic stroke and resulting neurocognitive decline. Status post hemorrhagic CVA, new acute and subacute stroke with chronic right hemiplegia and aphasia Continue PT, OT, and ST Palliative care following Associated aphasia/dysphagia s/p PEG placement on 05/09/17 Continue tube feedings Questionable new facial droop on 01/10; Brain MRI 01/11 showed acute to subacute left thalamic infarct with mild hemorrhagic component in patient with previous history of relatively large left thalamic CVA Neuro and neurosurgery consulted; no surgical intervention needed. Agreed to pharmacologic prophylaxis UTI Ctx growing Enterobacter aerogenes. s/p treatment w/ Levaquin x 14 days (01/03-) Repeat culture on 01/17 showed Yenifer albicans and patient completed a course of Diflucan Pt remains afebrile, last time the Cruz was placed was 01/17 Sacral ulcer Stage IV pressure ulcer MRI showing bony edema and marrow replacement concerning for osteomyelitis; ID consulted and recommended six weeks of Levaquin and Flagyl (stop date February 21) Wound care following, S/P bedside debridement 01/11. Nursing to see if she can be reevaluated HTN BPs better today Continue nifedipine 40 mg Q6H, Lisinopril 10 mg BID, Apresoline 50 mg Q6H, Metoprolol 100 mg BID, HCTZ 25 mg Daily Vasotec IV PRN, Clonidine PRN Hyperglycemia Glucerna for tube feeds Follow blood sugars intermittently Xeroderma on bilateral feet Lac-Hydrin 12% Lotion continued Depression Continue Lexapro 10 mg via PEG daily Nutrition Tube feeds changed to Glucerna 1.5 , bolus feeding with Tyshawn DVT Prophylaxis Heparin (cleared by neurosurgery) Discharge Planning Patient was homeless prior to admit Poor access for inpatient rehabilitation Family desires aggressive measures for therapy and placement Independent funding unavailable for placement Long-term prognosis is poor No significant capacity for regaining full functionality Palliative care following Kat Harris MD Feb 11, 2018 12:46
[2018-02-11] MEDS: LEVOFLOXACIN 750 MG TAB PEG SCH (12:55)
[2018-02-11 20:00] VITALS: BP 144/99; PULSE 103; RESP 16; TEMP 98.4; O2SAT 99
[2018-02-12] VITALS: BP 128/91; PULSE 81; RESP 16; TEMP 98.3; O2SAT 99
[2018-02-12] MEDS: FREE WATER PEG SCH ×4 (00:52→18:00)
[2018-02-12 04:00] VITALS: BP 133/88; PULSE 82; RESP 16; TEMP 98.4; O2SAT 99
[2018-02-12] MEDS: NIFEdipine 20 MG CAP PEG SCH ×3 (05:13→21:53)
[2018-02-12] MEDS: hydrALAZINE HCL 50 MG TAB PEG SCH ×3 (05:13→21:53)
[2018-02-12] MEDS: CHOLESTYRAMINE 4 GM PACKET PEG SCH ×3 (05:13→22:55)
[2018-02-12 08:30] VITALS: BP 110/77; PULSE 70; RESP 14; TEMP 99; O2SAT 99
[2018-02-12] MEDS: HYDROCHLOROTHIAZIDE 25 MG TAB PEG SCH (09:11)
[2018-02-12] MEDS: ESCITALOPRAM OXALATE 10 MG TAB PEG SCH (09:11)
[2018-02-12] MEDS: METOPROLOL TARTRATE 25 MG TAB PEG SCH ×2 (09:11→21:53)
[2018-02-12] MEDS: HEPARIN SODIUM - SQ 10,000 UNITS/ML VIAL SQ SCH ×2 (09:11→21:53)
[2018-02-12] MEDS: LANSOPRAZOLE SOLUTAB 30 MG TAB G-TUBE SCH (09:11)
[2018-02-12] MEDS: LACTOBACILLUS ACIDOPHILUS TAB PEG SCH ×3 (09:11→18:07)
[2018-02-12] MEDS: JUVEN POWDER 1 PACK G-TUBE SCH ×2 (09:12→21:00)
[2018-02-12] MEDS: LACTIC ACID (AMMONIUM LACTATE) 12% LOTION 225 GM BTL TOPICAL SCH ×2 (09:12→21:54)
[2018-02-12] MEDS: SODIUM HYPOCHLORITE 0.125% 500 ML BTL TOPICAL SCH (09:12)
[2018-02-12] MEDS: COLLAGENASE OINT 30 GM TUBE TOPICAL SCH (09:12)
--- NOTE | 2018-02-12 09:28 | HHI.PR ---
Subjective Remarks Unable to obtain history due to CVA. No distress when seen. Vital signs stable. Objective Vital Signs Date Time Temp Pulse Resp B/P (MAP) Pulse Ox O2 Delivery O2 Flow Rate FiO2 02/12/18 04:00 98.4 82 16 133/88 (103) 99 02/12/18 00:00 98.3 81 16 128/91 (103) 99 02/11/18 20:00 98.4 103 16 144/99 (114) 99 I/O 02/11/18 02/11/18 02/11/18 02/12/18 02/12/18 02/12/18 07:00 15:00 23:00 07:00 15:00 23:00 Intake Total 1080 ml Output Total 1225 ml 1100 ml 400 ml Balance -1225 ml -20 ml -400 ml Tube Feeding 480 ml Other 600 ml Output Urine Total 1225 ml 1100 ml 400 ml # Bowel Movements 1 2 Procedures Peg Tube placed 05/08/17 (Dr. De Los Santos) Objective Remarks GENERAL: NAD, A&Ox0 HEAD: Normocephalic. NECK: Supple, trachea midline. No lymphadenopathy. EYES: No scleral icterus. No injection or drainage. CARDIOVASCULAR: Regular rate and rhythm without murmurs, gallops, or rubs. RESPIRATORY: Breath sounds equal bilaterally. No accessory muscle use. GASTROINTESTINAL: Abdomen soft, non-tender, nondistended. MUSCULOSKELETAL: No cyanosis, or edema. SKIN: Warm and dry. NEURO: No focal neurological deficitis. A/P Problem List: (1) Major neurocognitive disorder ICD Code: F03.90 - Unspecified dementia without behavioral disturbance Assessment and Plan 62-year-old female admitted secondary to intracranial hemorrhage on 04/10/17. No singifican changes in last 24 hours. Sacral ulcer Stage IV pressure ulcer Continue wound care Continue monitoring Status post intracranial hemorrhage Status post hemorrhagic CVA Continue PT, OT, and ST Patient was homeless prior to admit Poor access for inpatient rehabilitation Family desires aggressive measures for therapy and placement Independent funding unavailable for placement Long-term prognosis is poor No significant capacity for regaining full functionality Dysphagia Related to intracranial bleed history Status post PEG placement on 05/09/17 Continue tube feeding Hypertension emergency Follow blood pressures Continue the following blood pressures: Nifedipine 40 mg every 6 hours Lisinopril 10 mg twice daily Apresoline 50 mg every 6 hours Catapres TTS 3 patch Metoprolol 100 mg twice daily HCTZ 25 mg daily Apresoline, clonidine, Vasotec as needed Hyperglycemia Glucerna for tube feeds Follow blood sugars intermittently Xeroderma on bilateral feet Lac-Hydrin 12% Lotion continued. DVT Prophylaxis: SCDs given history of intracranial hemorrhage Discharge planning Difficult placement Palliative care following Timmy Cano MD Feb 12, 2018 09:28
[2018-02-12 12:00] VITALS: BP 116/85; PULSE 93; RESP 18; TEMP 97.5; O2SAT 98
[2018-02-12] MEDS: LEVOFLOXACIN 750 MG TAB PEG SCH (13:48)
[2018-02-12 16:00] VITALS: BP 123/95; PULSE 68; RESP 18; TEMP 97.4; O2SAT 99
[2018-02-12 20:00] VITALS: BP 128/93; PULSE 107; RESP 17
[2018-02-13] MEDS: FREE WATER PEG SCH ×4 (06:00→17:43)
[2018-02-13] MEDS: CHOLESTYRAMINE 4 GM PACKET PEG SCH ×3 (06:00→21:33)
[2018-02-13] MEDS: hydrALAZINE HCL 50 MG TAB PEG SCH ×3 (07:05→21:10)
[2018-02-13] MEDS: NIFEdipine 20 MG CAP PEG SCH ×3 (07:06→21:10)
[2018-02-13 08:00] VITALS: BP 126/88; PULSE 74; RESP 12; TEMP 98.5; O2SAT 97
[2018-02-13] MEDS: JUVEN POWDER 1 PACK G-TUBE SCH ×2 (09:00→21:33)
[2018-02-13] MEDS: COLLAGENASE OINT 30 GM TUBE TOPICAL SCH (10:28)
[2018-02-13] MEDS: HEPARIN SODIUM - SQ 10,000 UNITS/ML VIAL SQ SCH ×2 (10:29→21:10)
[2018-02-13] MEDS: SIMETHICONE SUSP DROPS 40 MG/0.6 ML 30 ML BTL PO PRN (10:29)
[2018-02-13] MEDS: LACTIC ACID (AMMONIUM LACTATE) 12% LOTION 225 GM BTL TOPICAL SCH ×2 (10:29→21:13)
[2018-02-13] MEDS: HYDROCHLOROTHIAZIDE 25 MG TAB PEG SCH (10:30)
[2018-02-13] MEDS: SODIUM HYPOCHLORITE 0.125% 500 ML BTL TOPICAL SCH (10:30)
[2018-02-13] MEDS: ESCITALOPRAM OXALATE 10 MG TAB PEG SCH (10:30)
[2018-02-13] MEDS: METOPROLOL TARTRATE 25 MG TAB PEG SCH ×2 (10:30→21:10)
[2018-02-13] MEDS: LACTOBACILLUS ACIDOPHILUS TAB PEG SCH ×3 (10:30→17:43)
[2018-02-13] MEDS: LANSOPRAZOLE SOLUTAB 30 MG TAB G-TUBE SCH (10:30)
--- NOTE | 2018-02-13 11:31 | HHI.PR ---
Subjective Remarks No change. Unable to obtain history due to CVA. No distress when seen. Vital signs stable. Objective Vital Signs Date Time Temp Pulse Resp B/P (MAP) Pulse Ox O2 Delivery O2 Flow Rate FiO2 02/12/18 20:00 107 17 128/93 (105) 02/12/18 16:00 97.4 68 18 123/95 (104) 99 02/12/18 12:00 97.5 93 18 116/85 (95) 98 I/O 02/12/18 02/12/18 02/12/18 02/13/18 02/13/18 02/13/18 07:00 15:00 23:00 07:00 15:00 23:00 Intake Total 880 ml 630 ml Output Total 400 ml 650 ml 800 ml Balance -400 ml 230 ml -170 ml Tube Feeding 480 ml 630 ml Other 400 ml Output Urine Total 400 ml 650 ml 800 ml Procedures Peg Tube placed 05/08/17 (Dr. De Los Santos) Objective Remarks GENERAL: NAD, A&Ox0 HEAD: Normocephalic. NECK: Supple, trachea midline. No lymphadenopathy. EYES: No scleral icterus. No injection or drainage. CARDIOVASCULAR: Regular rate and rhythm without murmurs, gallops, or rubs. RESPIRATORY: Breath sounds equal bilaterally. No accessory muscle use. GASTROINTESTINAL: Abdomen soft, non-tender, nondistended. MUSCULOSKELETAL: No cyanosis, or edema. SKIN: Warm and dry. NEURO: No focal neurological deficitis. A/P Problem List: (1) Major neurocognitive disorder ICD Code: F03.90 - Unspecified dementia without behavioral disturbance Assessment and Plan 62-year-old female admitted secondary to intracranial hemorrhage on 04/10/17. No singifican changes in last 24 hours. Sacral ulcer Stage IV pressure ulcer Continue wound care Continue monitoring Status post intracranial hemorrhage Status post hemorrhagic CVA Continue PT, OT, and ST Patient was homeless prior to admit Poor access for inpatient rehabilitation Family desires aggressive measures for therapy and placement Independent funding unavailable for placement Long-term prognosis is poor No significant capacity for regaining full functionality Dysphagia Related to intracranial bleed history Status post PEG placement on 05/09/17 Continue tube feeding Hypertension emergency Follow blood pressures Continue the following blood pressures: Nifedipine 40 mg every 6 hours Lisinopril 10 mg twice daily Apresoline 50 mg every 6 hours Catapres TTS 3 patch Metoprolol 100 mg twice daily HCTZ 25 mg daily Apresoline, clonidine, Vasotec as needed Hyperglycemia Glucerna for tube feeds Follow blood sugars intermittently Xeroderma on bilateral feet Lac-Hydrin 12% Lotion continued. DVT Prophylaxis: SCDs given history of intracranial hemorrhage Discharge planning Difficult placement Palliative care following Timmy Cano MD Feb 13, 2018 11:31
[2018-02-13 12:00] VITALS: BP 130/88; PULSE 74; RESP 14; TEMP 98.9; O2SAT 98
[2018-02-13] MEDS: LEVOFLOXACIN 750 MG TAB PEG SCH (12:00)
[2018-02-13 16:00] VITALS: BP 126/82; PULSE 103; RESP 14; TEMP 98.7; O2SAT 98
[2018-02-14] MEDS: FREE WATER PEG SCH ×5 (00:37→23:54)
[2018-02-14 01:17] VITALS: BP 115/81; PULSE 90; RESP 15; TEMP 97.8; O2SAT 100
[2018-02-14 04:23] VITALS: BP 123/85; PULSE 95; RESP 16; TEMP 98.7; O2SAT 100
[2018-02-14] MEDS: hydrALAZINE HCL 50 MG TAB PEG SCH ×3 (06:29→20:32)
[2018-02-14] MEDS: CHOLESTYRAMINE 4 GM PACKET PEG SCH ×3 (06:29→20:30)
[2018-02-14] MEDS: NIFEdipine 20 MG CAP PEG SCH ×3 (06:29→20:30)
[2018-02-14 08:00] VITALS: BP 121/85; PULSE 120; RESP 14; TEMP 98.1; O2SAT 97
[2018-02-14] MEDS: HYDROCHLOROTHIAZIDE 25 MG TAB PEG SCH ×2 (09:00→12:06)
[2018-02-14] MEDS: JUVEN POWDER 1 PACK G-TUBE SCH ×2 (09:00→20:29)
[2018-02-14] MEDS: LACTOBACILLUS ACIDOPHILUS TAB PEG SCH ×3 (09:08→17:36)
[2018-02-14] MEDS: LANSOPRAZOLE SOLUTAB 30 MG TAB G-TUBE SCH (09:09)
[2018-02-14] MEDS: ESCITALOPRAM OXALATE 10 MG TAB PEG SCH (09:09)
[2018-02-14] MEDS: HEPARIN SODIUM - SQ 10,000 UNITS/ML VIAL SQ SCH ×2 (09:09→20:30)
[2018-02-14] MEDS: COLLAGENASE OINT 30 GM TUBE TOPICAL SCH (09:09)
[2018-02-14] MEDS: LACTIC ACID (AMMONIUM LACTATE) 12% LOTION 225 GM BTL TOPICAL SCH ×2 (09:09→20:32)
[2018-02-14] MEDS: METOPROLOL TARTRATE 25 MG TAB PEG SCH ×2 (09:09→20:30)
[2018-02-14] MEDS: SODIUM HYPOCHLORITE 0.125% 500 ML BTL TOPICAL SCH (09:09)
[2018-02-14] MEDS: SIMETHICONE SUSP DROPS 40 MG/0.6 ML 30 ML BTL PO PRN (09:10)
--- NOTE | 2018-02-14 10:06 | HHI.PR ---
Subjective Remarks No acute concerns today. Unable to obtain history due to CVA. No distress when seen. Vital signs stable. Objective Vital Signs Date Time Temp Pulse Resp B/P (MAP) Pulse Ox O2 Delivery O2 Flow Rate FiO2 02/14/18 08:00 98.1 120 14 121/85 (97) 97 02/14/18 04:23 98.7 95 16 123/85 (98) 100 02/14/18 01:17 97.8 90 15 115/81 (92) 100 02/13/18 16:00 98.7 103 14 126/82 (97) 98 02/13/18 12:00 98.9 74 14 130/88 (102) 98 I/O 02/13/18 02/13/18 02/13/18 02/14/18 02/14/18 02/14/18 07:00 15:00 23:00 07:00 15:00 23:00 Intake Total 630 ml 880 ml 931 ml Output Total 800 ml 700 ml 550 ml Balance -170 ml 180 ml 381 ml Tube Feeding 630 ml 480 ml 531 ml Tube Irrigant 400 ml Other 400 ml Output Urine Total 800 ml 700 ml 550 ml # Bowel Movements 2 Procedures Peg Tube placed 05/08/17 (Dr. De Los Santos) Objective Remarks GENERAL: NAD, A&Ox0 HEAD: Normocephalic. NECK: Supple, trachea midline. No lymphadenopathy. EYES: No scleral icterus. No injection or drainage. CARDIOVASCULAR: Regular rate and rhythm without murmurs, gallops, or rubs. RESPIRATORY: Breath sounds equal bilaterally. No accessory muscle use. GASTROINTESTINAL: Abdomen soft, non-tender, nondistended. MUSCULOSKELETAL: No cyanosis, or edema. SKIN: Warm and dry. NEURO: No focal neurological deficitis. A/P Problem List: (1) Major neurocognitive disorder ICD Code: F03.90 - Unspecified dementia without behavioral disturbance Assessment and Plan 62-year-old female admitted secondary to intracranial hemorrhage on 04/10/17. No singifican changes in last 24 hours. Sacral ulcer Stage IV pressure ulcer Continue wound care Continue monitoring Status post intracranial hemorrhage Status post hemorrhagic CVA Continue PT, OT, and ST Patient was homeless prior to admit Poor access for inpatient rehabilitation Family desires aggressive measures for therapy and placement Independent funding unavailable for placement Long-term prognosis is poor No significant capacity for regaining full functionality Dysphagia Related to intracranial bleed history Status post PEG placement on 05/09/17 Continue tube feeding Hypertension emergency Follow blood pressures Continue the following blood pressures: Nifedipine 40 mg every 6 hours Lisinopril 10 mg twice daily Apresoline 50 mg every 6 hours Catapres TTS 3 patch Metoprolol 100 mg twice daily HCTZ 25 mg daily Apresoline, clonidine, Vasotec as needed Hyperglycemia Glucerna for tube feeds Follow blood sugars intermittently Xeroderma on bilateral feet Lac-Hydrin 12% Lotion continued. DVT Prophylaxis: SCDs given history of intracranial hemorrhage Discharge planning Difficult placement Palliative care following Timmy Cano MD Feb 14, 2018 10:06
[2018-02-14 12:00] VITALS: BP 139/96; PULSE 85; RESP 14; TEMP 99.3; O2SAT 95
[2018-02-14] MEDS: LEVOFLOXACIN 750 MG TAB PEG SCH (12:00)
[2018-02-14 16:00] VITALS: BP 134/84; PULSE 74; RESP 14; TEMP 98; O2SAT 98
[2018-02-14 20:00] VITALS: BP 164/120; PULSE 111; RESP 17; TEMP 98.1; O2SAT 98
[2018-02-15] VITALS (7 sets, daily range): BP systolic 110–129; BP diastolic 74–94; PULSE 79–100; RESP 16–18; TEMP 97.2–98.6; O2SAT 97–99
[2018-02-15] MEDS: FREE WATER PEG SCH ×3 (05:45→17:20)
[2018-02-15] MEDS: NIFEdipine 20 MG CAP PEG SCH ×3 (05:45→21:01)
[2018-02-15] MEDS: hydrALAZINE HCL 50 MG TAB PEG SCH ×3 (05:45→21:01)
[2018-02-15] MEDS: CHOLESTYRAMINE 4 GM PACKET PEG SCH ×3 (05:45→21:01)
[2018-02-15] MEDS: ESCITALOPRAM OXALATE 10 MG TAB PEG SCH (08:39)
[2018-02-15] MEDS: LACTOBACILLUS ACIDOPHILUS TAB PEG SCH ×3 (08:39→17:20)
[2018-02-15] MEDS: JUVEN POWDER 1 PACK G-TUBE SCH ×2 (08:39→21:02)
[2018-02-15] MEDS: HEPARIN SODIUM - SQ 10,000 UNITS/ML VIAL SQ SCH ×2 (08:39→21:01)
[2018-02-15] MEDS: METOPROLOL TARTRATE 25 MG TAB PEG SCH ×2 (08:39→21:02)
[2018-02-15] MEDS: LANSOPRAZOLE SOLUTAB 30 MG TAB G-TUBE SCH (08:39)
[2018-02-15] MEDS: COLLAGENASE OINT 30 GM TUBE TOPICAL SCH (08:41)
[2018-02-15] MEDS: SODIUM HYPOCHLORITE 0.125% 500 ML BTL TOPICAL SCH (08:41)
[2018-02-15] MEDS: LACTIC ACID (AMMONIUM LACTATE) 12% LOTION 225 GM BTL TOPICAL SCH ×2 (08:41→21:03)
[2018-02-15] MEDS: HYDROCHLOROTHIAZIDE 25 MG TAB PEG SCH (08:49)
[2018-02-15] MEDS: LEVOFLOXACIN 750 MG TAB PEG SCH (11:57)
--- NOTE | 2018-02-15 12:32 | HHI.PR ---
Subjective Remarks Seen around 11:40 AM. Patient is sleeping. However wakes up easily to verbal and tactile stimuli. She would stare at me but would not answer questions. She does not follow commands when asked to squeeze my hand or to stick out her tongue. Per nursing, no acute issues overnight. Objective Vital Signs Date Time Temp Pulse Resp B/P (MAP) Pulse Ox O2 Delivery O2 Flow Rate FiO2 02/15/18 08:00 98.1 79 16 114/74 (87) 98 02/15/18 04:00 97.2 82 16 129/94 (106) 99 02/15/18 00:00 97.7 95 17 119/83 (95) 97 02/14/18 20:00 98.1 111 17 164/120 (135) 98 02/14/18 16:00 98.0 74 14 134/84 (101) 98 I/O 02/14/18 02/14/18 02/14/18 02/15/18 02/15/18 02/15/18 07:00 15:00 23:00 07:00 15:00 23:00 Intake Total 931 ml 880 ml Output Total 550 ml 375 ml 1400 ml Balance 381 ml 505 ml -1400 ml Tube Feeding 531 ml 480 ml Tube Irrigant 400 ml Other 400 ml Output Urine Total 550 ml 375 ml 1400 ml # Bowel Movements 1 Procedures Peg Tube placed 05/08/17 (Dr. De Los Santos) Objective Remarks Awake with verbal stimuli. Not sure how much she is alert. Not in distress. On room air. Heart rate is regular, no murmur appreciated. Lungs are clear. Abdomen is soft and nontender. PEG site is clean. Lower extremities with significant muscle wasting and contracture. A/P Assessment and Plan Impression: Major neurocognitive disorder. Stage IV sacral ulcer. CVA. Hemorrhagic. Dysphagia. On PEG tube feeding. Placed May 09, 2017. Hypertensive emergency. Resolved. Hyperglycemia. On Glucerna for tube feeds. Plan: Patient is awake. Not on trach. However does not follow commands. Unsure how much she understands. Wound care is following regarding her sacral ulcers. Nursing staff is taking care of her sacral ulcers and turning her as well. Her blood pressure is stable on current regimen. Continue tube feeding. DVT prophylaxis on heparin. Discharge Planning Placement issues. Monique Ham MD Feb 15, 2018 12:32
[2018-02-16 00:06] VITALS: BP 111/78; PULSE 84; RESP 18; TEMP 98.2; O2SAT 96
[2018-02-16] MEDS: FREE WATER PEG SCH ×4 (00:25→18:26)
[2018-02-16 04:29] VITALS: BP 118/87; PULSE 90; RESP 18; TEMP 99.5; O2SAT 98
[2018-02-16] MEDS: CHOLESTYRAMINE 4 GM PACKET PEG SCH ×3 (04:31→21:58)
[2018-02-16] MEDS: NIFEdipine 20 MG CAP PEG SCH ×3 (04:31→21:57)
[2018-02-16] MEDS: hydrALAZINE HCL 50 MG TAB PEG SCH ×3 (04:32→21:58)
[2018-02-16 08:00] VITALS: BP 132/89; PULSE 110; RESP 18; TEMP 98.9; O2SAT 98
--- NOTE | 2018-02-16 09:48 | HHI.PR ---
Subjective Remarks Pt laying in bed. does open eyes Discussed w RN, no concerns at this time. No acute events overnight Objective Vitals Vital Signs Date Time Temp Pulse Resp B/P (MAP) Pulse Ox O2 Delivery O2 Flow Rate FiO2 02/16/18 04:29 99.5 90 18 118/87 (97) 98 02/16/18 00:06 98.2 84 18 111/78 (89) 96 02/15/18 20:59 98.6 98 18 124/88 (100) 99 02/15/18 16:00 97.7 100 16 113/74 (87) 98 02/15/18 14:27 83 119/86 (97) 02/15/18 12:00 98.2 81 16 110/83 (92) 99 I/O 02/15/18 02/15/18 02/15/18 02/16/18 02/16/18 02/16/18 07:00 15:00 23:00 07:00 15:00 23:00 Intake Total 820 ml 874 ml Output Total 1400 ml 650 ml 550 ml Balance -1400 ml 170 ml 324 ml Tube Feeding 420 ml 474 ml Other 400 ml 400 ml Output Urine Total 1400 ml 650 ml 550 ml # Voids 1 # Bowel Movements 1 Imaging Last Impressions Head CT 01/20/18 0000 Signed Impressions: Service Date/Time: Sunday, January 21, 2018 16:13 - CONCLUSION: 1. Small area of encephalomalacia with some surrounding hemorrhage in the left basal ganglia most consistent with an area of hemorrhagic infarct. This is stable compared to previous exams. 2. Cortical atrophy and microvascular ischemic demyelinative change. Timmy Dumas MD Chest X-Ray 01/19/18 0000 Signed Impressions: Service Date/Time: Friday, January 19, 2018 17:12 - CONCLUSION: Trace left base atelectasis. Hu Henderson MD Gastrostomy Tube Placement 01/18/18 0000 Signed Impressions: Service Date/Time: January 16:41 - CONCLUSION: Uncomplicated gastrostomy tube replacement through an existing tract. Timmy Dumas MD Brain MRI 01/11/18 0000 Signed Impressions: Service Date/Time: January 08:45 - CONCLUSION: 1. Focal area of restricted diffusion in the left thalmus characteristic of an acute to subacute infarct. 2. GRE images demonstrate subacute hemorrhage associated with the infarct in the left thalamus. 3. GRE images also demonstrate punctate areas of microhemorrhage noted in the deep right mid parietal lobe, right occipital lobe and bilateral basal ganglia regions, left greater than right. 4. Diffuse bilateral cortical atrophy and chronic white matter changes. Luciano Morales MD Abdomen/Pelvis CT 01/09/18 0000 Signed Impressions: Service Date/Time: Tuesday, January 09, 2018 18:48 - CONCLUSION: 1. There is a sacral decubitus wound/ulcer which extends to the sacrum. Prior MRI demonstrated abnormal sacrum in the inferior aspect of the sacrum and coccyx. There is also presacral edema. These findings are highly suspicious for osteomyelitis. 2. Nonacute findings include 3 mm nonobstructing right renal stone and multi-fibroid uterus. Hu Cuenca MD Sacrum/Coccyx MRI 01/06/18 0000 Signed Impressions: Service Date/Time: Saturday, January 06, 2018 08:30 - CONCLUSION: Large decubitus ulcer posteriorly with not only bony edema and marrow replacement concerning for osteomyelitis but it extends to the presacral fat is well where there is marked enhancement and fluid on the T2-weighted sequences. The coccygeal involvement is at least 3.5 cm in length. Eliud Du MD Abdomen X-Ray 12/13/17 0000 Signed Impressions: Service Date/Time: Wednesday, December 13, 2017 14:17 - CONCLUSION: PEG tube in stomach.. Harry Dumas MD FACR Upper Extremity Ultrasound 11/06/17 0000 Signed Impressions: Service Date/Time: Monday, November 06, 2017 14:17 - CONCLUSION: Normal examination. K. Byron Perez MD Pelvis CT 10/13/17 0000 Signed Impressions: Service Date/Time: Friday, October 13, 2017 12:02 - CONCLUSION: 1. Decubitus ulcer with small abscess in the right posterior perineal region measuring 3.1 x 4.6 cm. There is also a small abscess posterior and to the left of the rectum measuring 3.2 x 2.3 cm. Jann Weber MD Neck CTA 04/10/17 0000 Signed Impressions: Service Date/Time: Monday, April 10, 2017 22:28 - CONCLUSION: The internal carotid arteries are normal bilaterally. No significant atherosclerotic disease is noted. Eliud Du MD Head CTA 04/10/17 0000 Signed Impressions: Service Date/Time: Monday, April 10, 2017 22:50 - CONCLUSION: Mild dilatation of the basilar tip without discrete aneurysm. Some narrowing of the left middle cerebral branch after the bifurcation. Prominent left thalamic hemorrhage. Eliud Du MD Objective Remarks Awake with verbal stimuli. On room air. Heart rate is regular, no murmur appreciated. Lungs are clear. Abdomen is soft and nontender. PEG site is clean. Lower extremities with significant muscle wasting and contracture. Procedures Peg Tube placed 05/08/17 (Dr. De Los Santos) A/P Problem List: (1) Major neurocognitive disorder ICD Code: F03.90 - Unspecified dementia without behavioral disturbance (2) Hemiparesis ICD Code: G81.90 - Hemiplegia, unspecified affecting unspecified side Status: Acute (3) Intracranial hemorrhage ICD Code: I62.9 - Nontraumatic intracranial hemorrhage, unspecified Status: Chronic (4) Aphasia ICD Code: R47.01 - Aphasia Assessment and Plan Medical mgt update 02/16/18: no new changes to management. Major neurocognitive disorder. Stage IV sacral ulcer. CVA. Hemorrhagic. Dysphagia. On PEG tube feeding. Placed May 09, 2017. Hypertensive emergency. Resolved. Hyperglycemia. On Glucerna for tube feeds. Plan: Patient is awake. Not on trach. However does not really follow commands. Unsure how much she understands. Wound care is following regarding her sacral ulcers. Nursing staff is taking care of her sacral ulcers and turning her as well. Her blood pressure is stable on current regimen. Continue tube feeding. DVT prophylaxis on heparin. Discharge Planning Placement issues. Rebekah Keen MD Feb 16, 2018 09:48
[2018-02-16] MEDS: HEPARIN SODIUM - SQ 10,000 UNITS/ML VIAL SQ SCH ×2 (10:06→21:58)
[2018-02-16] MEDS: JUVEN POWDER 1 PACK G-TUBE SCH ×2 (10:06→21:00)
[2018-02-16] MEDS: METOPROLOL TARTRATE 25 MG TAB PEG SCH ×2 (10:06→21:57)
[2018-02-16] MEDS: LANSOPRAZOLE SOLUTAB 30 MG TAB G-TUBE SCH (10:06)
[2018-02-16] MEDS: HYDROCHLOROTHIAZIDE 25 MG TAB PEG SCH (10:06)
[2018-02-16] MEDS: LACTOBACILLUS ACIDOPHILUS TAB PEG SCH ×3 (10:06→18:26)
[2018-02-16] MEDS: ESCITALOPRAM OXALATE 10 MG TAB PEG SCH (10:06)
[2018-02-16] MEDS: SODIUM HYPOCHLORITE 0.125% 500 ML BTL TOPICAL SCH (10:07)
[2018-02-16] MEDS: COLLAGENASE OINT 30 GM TUBE TOPICAL SCH (10:07)
[2018-02-16] MEDS: LACTIC ACID (AMMONIUM LACTATE) 12% LOTION 225 GM BTL TOPICAL SCH ×2 (10:07→21:59)
[2018-02-16 12:00] VITALS: BP 140/80; PULSE 100; RESP 20; TEMP 99; O2SAT 96
[2018-02-16] MEDS: LEVOFLOXACIN 750 MG TAB PEG SCH (13:52)
[2018-02-16 16:00] VITALS: BP 128/78; PULSE 120; RESP 18; TEMP 98.6; O2SAT 98
[2018-02-16 20:00] VITALS: BP 104/74; PULSE 90; RESP 20; TEMP 97.9; O2SAT 99
[2018-02-17 04:00] VITALS: BP 102/65; PULSE 80; RESP 20; TEMP 97.9
[2018-02-17] MEDS: NIFEdipine 20 MG CAP PEG SCH ×3 (05:22→21:47)
[2018-02-17] MEDS: FREE WATER PEG SCH ×4 (05:22→18:04)
[2018-02-17] MEDS: CHOLESTYRAMINE 4 GM PACKET PEG SCH ×3 (05:22→21:46)
[2018-02-17] MEDS: hydrALAZINE HCL 50 MG TAB PEG SCH ×3 (05:22→21:47)
[2018-02-17 07:29] LABS: AUTOMATED NEUTROPHIL # 1.8 TH/MM3 (1.8-7.7); BASOPHIL % 0.8 % (0.0-2.0); EOSINOPHIL # 0.2 TH/MM3 (0-0.4); EOSINOPHIL % 4.4 % (0.0-4.0); LYMPH % 27.6 % (9.0-44.0); LYMPHOCYTE # 1.1 TH/MM3 (1.0-4.8); MEAN CELL VOLUME 82.6 FL (80.0-100.0); MEAN CORPUSCULAR HEMOGLOBIN 27.4 PG (27.0-34.0); MEAN CORPUSCULAR HGB CONC 33.2 % (32.0-36.0); MEAN PLATELET VOLUME 8.7 FL (7.0-11.0); MONO % 20.5 % (0.0-8.0); MONOCYTE # 0.8 TH/MM3 (0-0.9); NEUT % 46.7 % (16.0-70.0); PLATELET COUNT 286 TH/MM3 (150-450); RED BLOOD COUNT 4.72 MIL/MM3 (4.00-5.30); RED CELL DISTRIBUTION WIDTH 19.3 % (11.6-17.2); WHITE BLOOD COUNT 3.9 TH/MM3 (4.0-11.0)
[2018-02-17 07:47] LABS: BICARBONATE 26.4 MEQ/L (21.0-32.0); CALCIUM 9.3 MG/DL (8.5-10.1); CREATININE 0.32 MG/DL (0.50-1.00)
[2018-02-17 08:00] VITALS: BP 104/67; PULSE 98; RESP 20; TEMP 98.8; O2SAT 98
[2018-02-17] MEDS: ESCITALOPRAM OXALATE 10 MG TAB PEG SCH (09:40)
[2018-02-17] MEDS: LANSOPRAZOLE SOLUTAB 30 MG TAB G-TUBE SCH (09:41)
[2018-02-17] MEDS: HEPARIN SODIUM - SQ 10,000 UNITS/ML VIAL SQ SCH ×2 (09:41→21:48)
[2018-02-17] MEDS: LACTOBACILLUS ACIDOPHILUS TAB PEG SCH ×3 (09:41→18:05)
[2018-02-17] MEDS: METOPROLOL TARTRATE 25 MG TAB PEG SCH ×2 (09:41→21:47)
[2018-02-17] MEDS: JUVEN POWDER 1 PACK G-TUBE SCH ×2 (09:42→21:00)
[2018-02-17] MEDS: HYDROCHLOROTHIAZIDE 25 MG TAB PEG SCH (09:42)
[2018-02-17] MEDS: SODIUM HYPOCHLORITE 0.125% 500 ML BTL TOPICAL SCH (09:42)
[2018-02-17] MEDS: COLLAGENASE OINT 30 GM TUBE TOPICAL SCH (09:43)
[2018-02-17] MEDS: LACTIC ACID (AMMONIUM LACTATE) 12% LOTION 225 GM BTL TOPICAL SCH ×2 (09:43→21:48)
[2018-02-17 11:07] VITALS: O2SAT 94
[2018-02-17 12:00] VITALS: BP 115/85; PULSE 97; RESP 16; TEMP 98.6; O2SAT 97
[2018-02-17] MEDS: LEVOFLOXACIN 750 MG TAB PEG SCH (13:24)
--- NOTE | 2018-02-17 14:20 | HHI.PR ---
Subjective Remarks Follow-up on patient with hemorrhagic CVA. Patient seen and examined. Not in any distress. Afebrile. Discussed with nursing staff, patient appears to be in pain, crying with repositioning. Objective Vitals Vital Signs Date Time Temp Pulse Resp B/P (MAP) Pulse Ox O2 Delivery O2 Flow Rate FiO2 02/17/18 08:00 98.8 98 20 104/67 (79) 98 02/17/18 04:00 97.9 80 20 102/65 (77) 02/16/18 20:00 97.9 90 20 104/74 (84) 99 02/16/18 16:00 98.6 120 18 128/78 (95) 98 I/O 02/16/18 02/16/18 02/16/18 02/17/18 02/17/18 02/17/18 06:59 14:59 22:59 06:59 14:59 22:59 Intake Total 874 ml 1080 ml Output Total 550 ml 1300 ml 1000 ml Balance 324 ml -220 ml -1000 ml Tube Feeding 474 ml 480 ml Other 400 ml 600 ml Output Urine Total 550 ml 1300 ml 1000 ml # Voids 1 # Bowel Movements 1 2 Result Diagram: 02/17/18 0654 02/17/18 0654 Imaging Last Impressions Head CT 01/20/18 0000 Signed Impressions: Service Date/Time: Sunday, January 21, 2018 16:13 - CONCLUSION: 1. Small area of encephalomalacia with some surrounding hemorrhage in the left basal ganglia most consistent with an area of hemorrhagic infarct. This is stable compared to previous exams. 2. Cortical atrophy and microvascular ischemic demyelinative change. Timmy Dumas MD Chest X-Ray 01/19/18 0000 Signed Impressions: Service Date/Time: Friday, January 19, 2018 17:12 - CONCLUSION: Trace left base atelectasis. Hu Henderson MD Gastrostomy Tube Placement 01/18/18 0000 Signed Impressions: Service Date/Time: January 16:41 - CONCLUSION: Uncomplicated gastrostomy tube replacement through an existing tract. Timmy Dumas MD Brain MRI 01/11/18 0000 Signed Impressions: Service Date/Time: January 08:45 - CONCLUSION: 1. Focal area of restricted diffusion in the left thalmus characteristic of an acute to subacute infarct. 2. GRE images demonstrate subacute hemorrhage associated with the infarct in the left thalamus. 3. GRE images also demonstrate punctate areas of microhemorrhage noted in the deep right mid parietal lobe, right occipital lobe and bilateral basal ganglia regions, left greater than right. 4. Diffuse bilateral cortical atrophy and chronic white matter changes. Luciano Morales MD Abdomen/Pelvis CT 01/09/18 0000 Signed Impressions: Service Date/Time: Tuesday, January 09, 2018 18:48 - CONCLUSION: 1. There is a sacral decubitus wound/ulcer which extends to the sacrum. Prior MRI demonstrated abnormal sacrum in the inferior aspect of the sacrum and coccyx. There is also presacral edema. These findings are highly suspicious for osteomyelitis. 2. Nonacute findings include 3 mm nonobstructing right renal stone and multi-fibroid uterus. Hu Cuenca MD Sacrum/Coccyx MRI 01/06/18 0000 Signed Impressions: Service Date/Time: Saturday, January 06, 2018 08:30 - CONCLUSION: Large decubitus ulcer posteriorly with not only bony edema and marrow replacement concerning for osteomyelitis but it extends to the presacral fat is well where there is marked enhancement and fluid on the T2-weighted sequences. The coccygeal involvement is at least 3.5 cm in length. Eliud Du MD Abdomen X-Ray 12/13/17 0000 Signed Impressions: Service Date/Time: Wednesday, December 13, 2017 14:17 - CONCLUSION: PEG tube in stomach.. Harry Dumas MD FACR Upper Extremity Ultrasound 11/06/17 0000 Signed Impressions: Service Date/Time: Monday, November 06, 2017 14:17 - CONCLUSION: Normal examination. K. Byron Perez MD Pelvis CT 10/13/17 0000 Signed Impressions: Service Date/Time: Friday, October 13, 2017 12:02 - CONCLUSION: 1. Decubitus ulcer with small abscess in the right posterior perineal region measuring 3.1 x 4.6 cm. There is also a small abscess posterior and to the left of the rectum measuring 3.2 x 2.3 cm. Jann Weber MD Neck CTA 04/10/17 0000 Signed Impressions: Service Date/Time: Monday, April 10, 2017 22:28 - CONCLUSION: The internal carotid arteries are normal bilaterally. No significant atherosclerotic disease is noted. Eliud Du MD Head CTA 04/10/17 0000 Signed Impressions: Service Date/Time: Monday, April 10, 2017 22:50 - CONCLUSION: Mild dilatation of the basilar tip without discrete aneurysm. Some narrowing of the left middle cerebral branch after the bifurcation. Prominent left thalamic hemorrhage. Eliud Du MD Objective Remarks GENERAL: Well-nourished, well-developed female patient in NAD. Lying in hospital bed. Awake. Nonverbal. Follows commands. On room air. SKIN: Warm and dry. No rash. HEAD: Normocephalic. EYES: No scleral icterus. No injection or drainage. ENT: No nasal bleeding or discharge. Mucous membranes pink and moist. NECK: Trachea midline. CARDIOVASCULAR: Regular rate and rhythm. 3/6 blowing murmur appreciated. RESPIRATORY: No accessory muscle use. Breath sounds equal bilaterally. GASTROINTESTINAL: Abdomen soft, non-tender, nondistended. Normoactive bowel sounds x4. s/p PEG tube placement, site C/D/I. MUSCULOSKELETAL: No edema noted. Weak wind commissioning technician LUE. RUE with some movement of fingers with attempt to wind commissioning technician. BLE with significant wasting and contractures. NEUROLOGICAL: Awake. Nonberbal. Procedures Peg Tube placed 05/08/17 (Dr. De Los Santos) Medications and IVs Current Medications Medications (Trade) Dose Ordered Sig/Reymundo Route Start Time Stop Time Status Last Admin (Dulcolax Supp) 10 mg DAILY PRN RECTAL 04/10/17 22:00 (Lac-Hydrin 12% Lotion) 1 applic BID TOPICAL 05/04/17 14:00 02/17/18 09:43 (Prevacid Odt) 30 mg DAILY G-TUBE 05/10/17 09:00 02/17/18 09:41 (Apresoline) 25 mg Q4HR PRN PEG 05/18/17 14:45 02/01/18 17:57 (Zofran Liq) 4 mg Q6H PRN PEG 05/26/17 10:00 02/09/18 09:37 (Tylenol) 650 mg Q6H PRN PEG 06/16/17 16:00 Future Hold 10/17/17 19:29 (Senna Liq) 8.8 mg DAILY PEG 06/29/17 09:00 Future Hold 10/17/17 10:02 (Pill Splitter) 1 ea UNSCH PRN OTHER 10/17/17 17:45 12/08/17 20:45 (Lopressor) 25 mg BID PEG 11/24/17 21:00 02/17/18 09:41 (Santyl Oint) 1 applic DAILY TOPICAL 12/25/17 17:00 02/17/18 09:43 (Lexapro) 10 mg DAILY PEG 01/02/18 17:15 02/17/18 09:40 (Heparin Inj) 5,000 units Q12HR SQ 01/13/18 09:00 02/17/18 09:41 (Dakin'S 0.125% Soln) 50 ml DAILY TOPICAL 01/13/18 20:00 02/17/18 09:42 (Miralax) 17 gm DAILY PRN PEG 01/19/18 09:15 (Hydrodiuril) 25 mg DAILY PEG 01/19/18 09:03 02/17/18 09:42 (Lactinex) 1 tab TID PEG 01/19/18 18:00 02/17/18 13:24 (Levaquin) 750 mg DAILY@1200 PEG 01/20/18 12:00 02/21/18 11:59 02/17/18 13:24 (Procardia) 40 mg Q8HR PEG 01/25/18 06:00 02/17/18 13:24 (Catapres) 0.1 mg Q4H PRN PEG 02/01/18 22:00 02/14/18 20:30 (Simethicone Liq (Drops)) 40 mg QID PRN PO 02/03/18 15:15 02/14/18 09:10 (Questran 4 Gm Pkt) 4 gm Q8HR PEG 02/06/18 16:00 02/17/18 13:24 (Free Water) 200 ml Q6HR PEG 02/07/18 06:00 02/17/18 13:24 (Tyshawn Powder) 1 pack BID G-TUBE 02/07/18 09:00 02/17/18 09:42 (Apresoline) 50 mg Q8HR PEG 02/10/18 22:00 02/17/18 13:29 (Ultram) 50 mg Q12H PEG 02/17/18 16:00 A/P Problem List: (1) Major neurocognitive disorder ICD Code: F03.90 - Unspecified dementia without behavioral disturbance (2) Hemiparesis ICD Code: G81.90 - Hemiplegia, unspecified affecting unspecified side Status: Acute (3) Intracranial hemorrhage ICD Code: I62.9 - Nontraumatic intracranial hemorrhage, unspecified Status: Chronic (4) Aphasia ICD Code: R47.01 - Aphasia Assessment and Plan 62-year-old female with history of hemorrhagic stroke and resulting neurocognitive decline: //Status post hemorrhagic CVA, new acute and subacute stroke with chronic right hemiplegia and aphasia. Questionable new facial droop on 01/10; Brain MRI 01/11 showed acute to subacute left thalamic infarct with mild hemorrhagic component in patient with previous history of relatively large left thalamic CVA Neuro and neurosurgery consulted; no surgical intervention needed. Agreed to pharmacologic prophylaxis Repeat CT on 01/20 stable. //Neutropenia WBC 3.9 today ?etiology, possible medication side effect continue to monitor CBC closely if white count fails to improve or worsens, consider Hematology consultation //Stage IV sacral pressure ulcer hx PSAE infected sacral decubitus MRI showing bony edema and marrow replacement concerning for osteomyelitis; ID following, Flagyl discontinued 02/05. Continue Levaquin 02/21 - stop date in system Wound care following, S/P bedside debridement 01/11 Repositioning assistance, off pressure relief. Scheduled Tramadol for pain, hold for sedation Continue management as per infectious disease //Dysphagia Due to hemorrhagic stroke Status post PEG placement on 05/09/17, PEG tube out 01/18/2018, consult invasive radiology for PEG tube reinsertion, medically necessary. Continue tube feedings //HTN Continue nifedipine 40 mg Q8H, Apresoline 50 mg Q8H, Metoprolol 25 mg BID, HCTZ 25 mg Daily HOLD FOR HYPOTENSION Vasotec IV PRN, Clonidine PRN //Hyperglycemia Glucerna for tube feeds Follow blood sugars intermittently //Xeroderma on bilateral feet Lac-Hydrin 12% Lotion continued //Depression Continue Lexapro 10 mg via PEG daily //Thrush Continue on nystatin DVT Prophylaxis Heparin (cleared by neurosurgery) Discussed with nursing staff Discharge Planning Patient with poor prognosis. Difficult discharge. Awaiting placement, case management following. Tayla Bustos Feb 17, 2018 14:20
[2018-02-17 16:00] VITALS: BP 106/80; PULSE 120; RESP 24; TEMP 98.4; O2SAT 97
[2018-02-17] MEDS: traMADol HCL 50 MG TAB PEG SCH ×2 (16:32→18:01)
[2018-02-17 19:45] VITALS: BP 117/88; PULSE 103; RESP 20; TEMP 98.7; O2SAT 98
[2018-02-18] VITALS: BP 100/77; PULSE 88; RESP 20; TEMP 98.5; O2SAT 93
[2018-02-18 04:00] VITALS: BP 110/76; PULSE 86; RESP 20; TEMP 98.2; O2SAT 99
[2018-02-18] MEDS: FREE WATER PEG SCH ×4 (06:00→17:06)
[2018-02-18] MEDS: CHOLESTYRAMINE 4 GM PACKET PEG SCH ×3 (06:20→21:27)
[2018-02-18] MEDS: traMADol HCL 50 MG TAB PEG SCH ×2 (06:21→16:31)
[2018-02-18] MEDS: NIFEdipine 20 MG CAP PEG SCH ×3 (06:21→21:27)
[2018-02-18] MEDS: hydrALAZINE HCL 50 MG TAB PEG SCH ×3 (06:21→21:27)
[2018-02-18 08:00] VITALS: BP 105/75; PULSE 98; RESP 16; TEMP 97.9; O2SAT 98
[2018-02-18] MEDS: LACTOBACILLUS ACIDOPHILUS TAB PEG SCH ×3 (09:37→17:06)
[2018-02-18] MEDS: HEPARIN SODIUM - SQ 10,000 UNITS/ML VIAL SQ SCH ×2 (09:37→21:27)
[2018-02-18] MEDS: METOPROLOL TARTRATE 25 MG TAB PEG SCH ×2 (09:38→21:27)
[2018-02-18] MEDS: HYDROCHLOROTHIAZIDE 25 MG TAB PEG SCH (09:38)
[2018-02-18] MEDS: LANSOPRAZOLE SOLUTAB 30 MG TAB G-TUBE SCH (09:38)
[2018-02-18] MEDS: ESCITALOPRAM OXALATE 10 MG TAB PEG SCH (09:38)
[2018-02-18] MEDS: LACTIC ACID (AMMONIUM LACTATE) 12% LOTION 225 GM BTL TOPICAL SCH ×2 (09:39→21:00)
[2018-02-18] MEDS: SODIUM HYPOCHLORITE 0.125% 500 ML BTL TOPICAL SCH (09:39)
[2018-02-18] MEDS: JUVEN POWDER 1 PACK G-TUBE SCH ×2 (09:39→21:00)
[2018-02-18] MEDS: COLLAGENASE OINT 30 GM TUBE TOPICAL SCH (09:40)
--- NOTE | 2018-02-18 10:38 | HHI.PR ---
Subjective Remarks 62-year-old female hospitalized following hemorrhagic stroke. She has had recurrent urinary tract infections since she has been hospitalized and is nearing completion of 1 month of Levaquin. Objective Vitals Vital Signs Date Time Temp Pulse Resp B/P (MAP) Pulse Ox O2 Delivery O2 Flow Rate FiO2 02/18/18 08:00 97.9 98 16 105/75 (85) 98 02/18/18 04:00 98.2 86 20 110/76 (87) 99 02/18/18 00:00 98.5 88 20 100/77 (85) 93 02/17/18 19:45 98.7 103 20 117/88 (98) 98 02/17/18 16:00 98.4 120 24 106/80 (89) 97 02/17/18 12:00 98.6 97 16 115/85 (95) 97 I/O 02/17/18 02/17/18 02/17/18 02/18/18 02/18/18 02/18/18 07:00 15:00 23:00 07:00 15:00 23:00 Intake Total 864 ml 956 ml Output Total 1000 ml 700 ml 600 ml Balance -1000 ml 164 ml 356 ml Tube Feeding 464 ml 556 ml Other 400 ml 400 ml Output Urine Total 1000 ml 700 ml 600 ml # Bowel Movements 1 Result Diagram: 02/17/18 0654 02/17/18 06 Objective Remarks GENERAL: Thin patient, right hemiparesis due to hemorrhagic stroke, no distress SKIN: Decubitus ulcer sacrum stage IV HEAD: Normocephalic. EYES: No scleral icterus. No injection or drainage. NECK: Supple, trachea midline. No JVD or lymphadenopathy. CARDIOVASCULAR: Regular rate and rhythm without murmurs, gallops, or rubs. RESPIRATORY: Breath sounds equal bilaterally. No accessory muscle use. GASTROINTESTINAL: Abdomen soft, non-tender, nondistended. EXTREMITIES: No cyanosis, or edema. NEUROLOGICAL: Awake, alert, right hemiparesis Procedures Peg Tube placed 05/08/17 (Dr. De Los Santos) A/P Problem List: (1) Major neurocognitive disorder ICD Code: F03.90 - Unspecified dementia without behavioral disturbance (2) Hemiparesis ICD Code: G81.90 - Hemiplegia, unspecified affecting unspecified side Status: Acute (3) Intracranial hemorrhage ICD Code: I62.9 - Nontraumatic intracranial hemorrhage, unspecified Status: Chronic (4) Aphasia ICD Code: R47.01 - Aphasia Assessment and Plan 62-year-old female with history of hemorrhagic stroke UTI Infectious disease suspected Cruz related infection, started on Levaquin a month ago due to Cipro sensitivity on culture at that time Recheck Urinalysis with culture to determine if treatment has been successful Appreciate infectious disease consult Status post hemorrhagic CVA New acute and subacute stroke with chronic right hemiplegia and aphasia. Questionable new facial droop on 01/10; Brain MRI 01/11 showed acute to subacute left thalamic infarct with mild hemorrhagic component in patient with previous history of relatively large left thalamic CVA Neuro and neurosurgery consulted; no surgical intervention needed. Agreed to pharmacologic prophylaxis Repeat CT on 01/20 stable. Continue PT, OT, and ST Poor prognosis. Palliative care following Dysphagia Due to hemorrhagic stroke Status post PEG placement on 05/09/17 Continue tube feedings Single episode of vomiting today Neutropenia WBC 3.9 on 02/17/18 Possible medication side effect Monitor CBC closely Stage IV sacral pressure ulcer hx PSAE infected sacral decubitus MRI showing bony edema and marrow replacement concerning for osteomyelitis; ID following, Flagyl discontinued 02/05. Continue Levaquin 02/21 - stop date in system Wound care following, S/P bedside debridement 01/11 Repositioning assistance, off pressure relief. Scheduled Tramadol for pain, hold for sedation Continue management as per infectious disease Hypertension emergency Currently resolved. Continue nifedipine 40 mg Q6H, Lisinopril 10 mg BID, Apresoline 50 mg Q6H, Metoprolol 100 mg BID, HCTZ 25 mg Daily Vasotec IV PRN, Clonidine PRN Hyperglycemia Glucerna for tube feeds Follow blood sugars intermittently Xeroderma on bilateral feet Lac-Hydrin 12% Lotion continued. Coccyx pressure wound Stage IV pressure ulcer seat Pillow ordered Wound care following SEVERE DEPRESSION Continue Lexapro 10 mg via PEG daily Nutrition Tube feeds changed to Glucerna 1.5 , bolus feeding with Tyshawn. DVT Prophylaxis Neurosurgery cleared for Heparin use Discharge Planning Very poor prognosis. Difficult DC. Awaiting placement. Chauncey Cano MD Feb 18, 2018 10:38
[2018-02-18 12:00] VITALS: BP 107/81; PULSE 80; RESP 16; TEMP 98.1; O2SAT 99
[2018-02-18] MEDS: LEVOFLOXACIN 750 MG TAB PEG SCH (13:11)
[2018-02-18 15:23] LABS: BACTERIA, URINE FEW /hpf; BILIRUBIN, URINE NEG (NEG); BLOOD, URINE NEG (NEG); GLUCOSE,URINE NEG (NEG); KETONE, URINE NEG (NEG); MUCUS URINE FEW /lpf (OCC); NITRITE,URINE NEG (NEG); URINE COLOR YELLOW (YELLW/STRAW); URINE LEUKOCYTE ESTERASE MOD (NEG)
[2018-02-18 16:00] VITALS: BP 124/86; PULSE 90; RESP 20; TEMP 99.3; O2SAT 99
[2018-02-18 20:00] VITALS: BP 125/88; PULSE 88; RESP 20; TEMP 97; O2SAT 98
[2018-02-19] VITALS (7 sets, daily range): BP systolic 115–138; BP diastolic 82–98; PULSE 74–100; RESP 14–20; TEMP 97.7–99.3; O2SAT 94–100
[2018-02-19] MEDS: traMADol HCL 50 MG TAB PEG SCH ×3 (03:51→17:22)
[2018-02-19] MEDS: CHOLESTYRAMINE 4 GM PACKET PEG SCH ×3 (06:00→21:14)
[2018-02-19] MEDS: FREE WATER PEG SCH ×4 (06:00→17:13)
[2018-02-19] MEDS: NIFEdipine 20 MG CAP PEG SCH ×3 (06:00→21:13)
[2018-02-19] MEDS: hydrALAZINE HCL 50 MG TAB PEG SCH ×3 (06:01→21:13)
[2018-02-19] MEDS: LANSOPRAZOLE SOLUTAB 30 MG TAB G-TUBE SCH (09:33)
[2018-02-19] MEDS: ESCITALOPRAM OXALATE 10 MG TAB PEG SCH (09:33)
[2018-02-19] MEDS: LACTOBACILLUS ACIDOPHILUS TAB PEG SCH ×3 (09:33→17:12)
[2018-02-19] MEDS: HEPARIN SODIUM - SQ 10,000 UNITS/ML VIAL SQ SCH ×2 (09:33→21:13)
[2018-02-19] MEDS: HYDROCHLOROTHIAZIDE 25 MG TAB PEG SCH (09:33)
[2018-02-19] MEDS: METOPROLOL TARTRATE 25 MG TAB PEG SCH ×2 (09:34→21:12)
--- NOTE | 2018-02-19 11:48 | HHI.PR ---
Subjective Remarks Follow-up on patient with hemorrhagic CVA. Patient seen and examined. Patient is resting comfortably, not in any distress. Discussed with nursing staff, no acute issues noted. Objective Vitals Vital Signs Date Time Temp Pulse Resp B/P (MAP) Pulse Ox O2 Delivery O2 Flow Rate FiO2 02/19/18 10:09 98.4 74 14 125/98 (107) 97 02/19/18 07:00 98.4 74 14 125/98 (107) 97 02/19/18 04:00 98.8 90 20 126/90 (102) 96 02/19/18 00:00 99.3 86 20 118/83 (95) 94 02/18/18 20:00 97.0 88 20 125/88 (100) 98 02/18/18 16:00 99.3 90 20 124/86 (99) 99 02/18/18 12:00 98.1 80 16 107/81 (90) 99 I/O 02/18/18 02/18/18 02/18/18 02/19/18 02/19/18 02/19/18 07:00 15:00 23:00 07:00 15:00 23:00 Intake Total 956 ml 873 ml 886 ml Output Total 600 ml 850 ml 500 ml Balance 356 ml 23 ml 386 ml Tube Feeding 556 ml 473 ml 486 ml Other 400 ml 400 ml 400 ml Output Urine Total 600 ml 850 ml 500 ml # Bowel Movements 1 1 Result Diagram: 02/17/18 0654 02/17/18 0654 Imaging Last Impressions Head CT 01/20/18 0000 Signed Impressions: Service Date/Time: Sunday, January 21, 2018 16:13 - CONCLUSION: 1. Small area of encephalomalacia with some surrounding hemorrhage in the left basal ganglia most consistent with an area of hemorrhagic infarct. This is stable compared to previous exams. 2. Cortical atrophy and microvascular ischemic demyelinative change. Timmy Dumas MD Chest X-Ray 01/19/18 0000 Signed Impressions: Service Date/Time: Friday, January 19, 2018 17:12 - CONCLUSION: Trace left base atelectasis. Hu Henderson MD Gastrostomy Tube Placement 01/18/18 0000 Signed Impressions: Service Date/Time: January 16:41 - CONCLUSION: Uncomplicated gastrostomy tube replacement through an existing tract. Timmy Dumas MD Brain MRI 01/11/18 0000 Signed Impressions: Service Date/Time: January 08:45 - CONCLUSION: 1. Focal area of restricted diffusion in the left thalmus characteristic of an acute to subacute infarct. 2. GRE images demonstrate subacute hemorrhage associated with the infarct in the left thalamus. 3. GRE images also demonstrate punctate areas of microhemorrhage noted in the deep right mid parietal lobe, right occipital lobe and bilateral basal ganglia regions, left greater than right. 4. Diffuse bilateral cortical atrophy and chronic white matter changes. Luciano Morales MD Abdomen/Pelvis CT 01/09/18 0000 Signed Impressions: Service Date/Time: Tuesday, January 09, 2018 18:48 - CONCLUSION: 1. There is a sacral decubitus wound/ulcer which extends to the sacrum. Prior MRI demonstrated abnormal sacrum in the inferior aspect of the sacrum and coccyx. There is also presacral edema. These findings are highly suspicious for osteomyelitis. 2. Nonacute findings include 3 mm nonobstructing right renal stone and multi-fibroid uterus. Hu Cuenca MD Sacrum/Coccyx MRI 01/06/18 0000 Signed Impressions: Service Date/Time: Saturday, January 06, 2018 08:30 - CONCLUSION: Large decubitus ulcer posteriorly with not only bony edema and marrow replacement concerning for osteomyelitis but it extends to the presacral fat is well where there is marked enhancement and fluid on the T2-weighted sequences. The coccygeal involvement is at least 3.5 cm in length. Eliud Du MD Abdomen X-Ray 12/13/17 0000 Signed Impressions: Service Date/Time: Wednesday, December 13, 2017 14:17 - CONCLUSION: PEG tube in stomach.. Harry Dumas MD FACR Upper Extremity Ultrasound 11/06/17 0000 Signed Impressions: Service Date/Time: Monday, November 06, 2017 14:17 - CONCLUSION: Normal examination. Kelby Perez MD Pelvis CT 10/13/17 0000 Signed Impressions: Service Date/Time: Friday, October 13, 2017 12:02 - CONCLUSION: 1. Decubitus ulcer with small abscess in the right posterior perineal region measuring 3.1 x 4.6 cm. There is also a small abscess posterior and to the left of the rectum measuring 3.2 x 2.3 cm. Jann Weber MD Neck CTA 04/10/17 0000 Signed Impressions: Service Date/Time: Monday, April 10, 2017 22:28 - CONCLUSION: The internal carotid arteries are normal bilaterally. No significant atherosclerotic disease is noted. Eliud Du MD Head CTA 04/10/17 0000 Signed Impressions: Service Date/Time: Monday, April 10, 2017 22:50 - CONCLUSION: Mild dilatation of the basilar tip without discrete aneurysm. Some narrowing of the left middle cerebral branch after the bifurcation. Prominent left thalamic hemorrhage. Eliud Du MD Objective Remarks GENERAL: Well-nourished, well-developed female patient in NAD. Awake. Nonverbal. Follows commands. Appears comfortable. On RA. SKIN: Warm and dry. No rash. HEAD: Normocephalic. EYES: No scleral icterus. No injection or drainage. ENT: No nasal bleeding or discharge. Mucous membranes pink and moist. NECK: Trachea midline. CARDIOVASCULAR: Regular rate and rhythm. 3/6 blowing murmur appreciated. RESPIRATORY: No accessory muscle use. Breath sounds equal bilaterally. GASTROINTESTINAL: Abdomen soft, non-tender, nondistended. Normoactive bowel sounds x4. s/p PEG tube placement, site C/D/I. MUSCULOSKELETAL: No edema noted. Weak manager water wastewater LUE. RUE with some movement of fingers with attempt to manager water wastewater. BLE with significant wasting and contractures. NEUROLOGICAL: Awake. Nonberbal. Follows commands. Procedures Peg Tube placed 05/08/17 (Dr. De Los Santos) Medications and IVs Current Medications Medications (Trade) Dose Ordered Sig/Reymundo Route Start Time Stop Time Status Last Admin (Dulcolax Supp) 10 mg DAILY PRN RECTAL 04/10/17 22:00 (Lac-Hydrin 12% Lotion) 1 applic BID TOPICAL 05/04/17 14:00 02/18/18 21:00 (Prevacid Odt) 30 mg DAILY G-TUBE 05/10/17 09:00 02/19/18 09:33 (Apresoline) 25 mg Q4HR PRN PEG 05/18/17 14:45 02/01/18 17:57 (Zofran Liq) 4 mg Q6H PRN PEG 05/26/17 10:00 02/09/18 09:37 (Tylenol) 650 mg Q6H PRN PEG 06/16/17 16:00 Future Hold 10/17/17 19:29 (Senna Liq) 8.8 mg DAILY PEG 06/29/17 09:00 Future Hold 10/17/17 10:02 (Pill Splitter) 1 ea UNSCH PRN OTHER 10/17/17 17:45 12/08/17 20:45 (Lopressor) 25 mg BID PEG 11/24/17 21:00 02/19/18 09:34 (Santyl Oint) 1 applic DAILY TOPICAL 12/25/17 17:00 02/18/18 09:40 (Lexapro) 10 mg DAILY PEG 01/02/18 17:15 02/19/18 09:33 (Heparin Inj) 5,000 units Q12HR SQ 01/13/18 09:00 02/19/18 09:33 (Dakin'S 0.125% Soln) 50 ml DAILY TOPICAL 01/13/18 20:00 02/18/18 09:39 (Miralax) 17 gm DAILY PRN PEG 01/19/18 09:15 (Hydrodiuril) 25 mg DAILY PEG 01/19/18 09:03 02/19/18 09:33 (Lactinex) 1 tab TID PEG 01/19/18 18:00 02/19/18 09:33 (Levaquin) 750 mg DAILY@1200 PEG 01/20/18 12:00 02/21/18 11:59 02/18/18 13:11 (Procardia) 40 mg Q8HR PEG 01/25/18 06:00 02/18/18 21:27 (Catapres) 0.1 mg Q4H PRN PEG 02/01/18 22:00 02/14/18 20:30 (Simethicone Liq (Drops)) 40 mg QID PRN PO 02/03/18 15:15 02/14/18 09:10 (Questran 4 Gm Pkt) 4 gm Q8HR PEG 02/06/18 16:00 02/19/18 06:00 (Free Water) 200 ml Q6HR PEG 02/07/18 06:00 02/19/18 06:00 (Tyshawn Powder) 1 pack BID G-TUBE 02/07/18 09:00 02/18/18 21:00 (Apresoline) 50 mg Q8HR PEG 02/10/18 22:00 02/19/18 06:01 (Ultram) 50 mg Q12H PEG 02/17/18 16:00 02/19/18 06:01 A/P Problem List: (1) Major neurocognitive disorder ICD Code: F03.90 - Unspecified dementia without behavioral disturbance (2) Hemiparesis ICD Code: G81.90 - Hemiplegia, unspecified affecting unspecified side Status: Acute (3) Intracranial hemorrhage ICD Code: I62.9 - Nontraumatic intracranial hemorrhage, unspecified Status: Chronic (4) Aphasia ICD Code: R47.01 - Aphasia Assessment and Plan 62-year-old female with history of hemorrhagic stroke and resulting neurocognitive decline: //Status post hemorrhagic CVA, new acute and subacute stroke with chronic right hemiplegia and aphasia. Questionable new facial droop on 01/10; Brain MRI 01/11 showed acute to subacute left thalamic infarct with mild hemorrhagic component in patient with previous history of relatively large left thalamic CVA Neuro and neurosurgery consulted; no surgical intervention needed. Agreed to pharmacologic prophylaxis Repeat CT on 01/20 stable. //Neutropenia WBC 3.9 02/17 ?etiology, possible medication side effect continue to monitor CBC closely if white count fails to improve or worsens, consider Hematology consultation //Recurrent UTIs ID suspected helms related infection, change monthly - last changed 02/18 repeat UA suggestive of UTI currently on Levaquin x 6weeks, will follow up on final UCX results //Stage IV sacral pressure ulcer hx PSAE infected sacral decubitus MRI showing bony edema and marrow replacement concerning for osteomyelitis; ID following, Flagyl discontinued 02/05. Continue Levaquin 02/21 - stop date in system Wound care following, S/P bedside debridement 01/11 Repositioning assistance, off pressure relief. Scheduled Tramadol for pain, hold for sedation Continue management as per infectious disease //Dysphagia Due to hemorrhagic stroke Status post PEG placement on 05/09/17 Continue tube feedings //HTN Continue nifedipine 40mg Q8H, Apresoline 50 mg Q8H, Metoprolol 25mg BID, HCTZ 25 mg Daily HOLD FOR HYPOTENSION Vasotec IV PRN, Clonidine PRN //Hyperglycemia Glucerna for tube feeds Follow blood sugars intermittently //Xeroderma on bilateral feet Lac-Hydrin 12% Lotion continued //Depression Continue Lexapro 10 mg via PEG daily DVT Prophylaxis Heparin (cleared by neurosurgery) Discussed with nursing staff and Dr. Hou Discharge Planning Patient with poor prognosis. Difficult discharge. Awaiting placement, case management following. Tayla Bustos Feb 19, 2018 11:48
[2018-02-19] MEDS: LEVOFLOXACIN 750 MG TAB PEG SCH (12:32)
[2018-02-19] MEDS: JUVEN POWDER 1 PACK G-TUBE SCH ×2 (12:32→21:00)
[2018-02-19] MEDS: SODIUM HYPOCHLORITE 0.125% 500 ML BTL TOPICAL SCH (12:32)
[2018-02-19] MEDS: COLLAGENASE OINT 30 GM TUBE TOPICAL SCH (12:33)
[2018-02-19] MEDS: LACTIC ACID (AMMONIUM LACTATE) 12% LOTION 225 GM BTL TOPICAL SCH ×2 (12:33→21:13)
[2018-02-20] VITALS: BP 105/74; PULSE 82; RESP 16; TEMP 97.9; O2SAT 96
[2018-02-20 04:00] VITALS: BP 150/105; PULSE 93; RESP 16; TEMP 99.3; O2SAT 98
[2018-02-20] MEDS: traMADol HCL 50 MG TAB PEG SCH ×2 (05:15→17:17)
[2018-02-20] MEDS: hydrALAZINE HCL 50 MG TAB PEG SCH ×3 (05:16→20:44)
[2018-02-20] MEDS: CHOLESTYRAMINE 4 GM PACKET PEG SCH ×3 (05:16→20:45)
[2018-02-20] MEDS: FREE WATER PEG SCH ×4 (05:16→17:16)
[2018-02-20] MEDS: NIFEdipine 20 MG CAP PEG SCH ×3 (05:16→20:45)
[2018-02-20 08:00] VITALS: BP 138/89; PULSE 98; RESP 14; TEMP 98.7; O2SAT 99
[2018-02-20] MEDS: LACTIC ACID (AMMONIUM LACTATE) 12% LOTION 225 GM BTL TOPICAL SCH ×2 (08:38→20:48)
[2018-02-20] MEDS: SODIUM HYPOCHLORITE 0.125% 500 ML BTL TOPICAL SCH (08:38)
[2018-02-20] MEDS: COLLAGENASE OINT 30 GM TUBE TOPICAL SCH (08:38)
[2018-02-20] MEDS: JUVEN POWDER 1 PACK G-TUBE SCH ×2 (08:39→20:48)
[2018-02-20] MEDS: HYDROCHLOROTHIAZIDE 25 MG TAB PEG SCH (08:39)
[2018-02-20] MEDS: ESCITALOPRAM OXALATE 10 MG TAB PEG SCH (08:39)
[2018-02-20] MEDS: LACTOBACILLUS ACIDOPHILUS TAB PEG SCH ×3 (08:39→17:16)
[2018-02-20] MEDS: METOPROLOL TARTRATE 25 MG TAB PEG SCH ×2 (08:39→20:44)
[2018-02-20] MEDS: LANSOPRAZOLE SOLUTAB 30 MG TAB G-TUBE SCH (08:39)
[2018-02-20] MEDS: HEPARIN SODIUM - SQ 10,000 UNITS/ML VIAL SQ SCH ×2 (08:39→20:45)
--- NOTE | 2018-02-20 08:55 | HHI.PR ---
Subjective Remarks Follow-up visit for hemorrhagic CVA. Patient seen and examined in bed comfortably and appears to be in no acute distress. Spoke with nursing staff who does not report any acute concerns or events overnight or this morning. Objective Vitals Vital Signs Date Time Temp Pulse Resp B/P (MAP) Pulse Ox O2 Delivery O2 Flow Rate FiO2 02/20/18 04:00 99.3 93 16 150/105 (120) 98 02/20/18 00:00 97.9 82 16 105/74 (84) 96 02/19/18 20:00 97.7 81 16 115/84 (94) 96 02/19/18 17:05 98.0 100 14 131/92 (105) 100 02/19/18 12:00 98.0 77 16 138/82 (100) 98 02/19/18 10:09 98.4 74 14 125/98 (107) 97 I/O 02/19/18 02/19/18 02/19/18 02/20/18 02/20/18 02/20/18 07:00 15:00 23:00 07:00 15:00 23:00 Intake Total 886 ml 1000 ml 980 ml Output Total 500 ml 750 ml 1100 ml Balance 386 ml 250 ml -120 ml Tube Feeding 486 ml 600 ml 480 ml Other 400 ml 400 ml 500 ml Output Urine Total 500 ml 750 ml 1100 ml # Bowel Movements 1 2 1 Result Diagram: 02/17/18 0654 02/17/18 0654 Objective Remarks GENERAL: Well-nourished, well-developed female patient in NAD. Awake. Nonverbal. Follows commands. Appears comfortable. SKIN: Warm and dry. No rash. HEAD: Normocephalic. EYES: No scleral icterus. No injection or drainage. ENT: No nasal bleeding or discharge. Mucous membranes pink and moist. NECK: Trachea midline. CARDIOVASCULAR: Regular rate and rhythm. 3/6 murmur appreciated. RESPIRATORY: No accessory muscle use. Breath sounds equal bilaterally. GASTROINTESTINAL: Abdomen soft, non-tender, nondistended. Normoactive bowel sounds x4. s/p PEG tube placement, no surrounding erythema or drainage MUSCULOSKELETAL: No edema noted. 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 RUE with some movement of fingers with attempt to watchmaking teacher. BLE with significant wasting and contractures. NEUROLOGICAL: Awake. Nonberbal. Follows commands. Procedures Peg Tube placed 05/08/17 (Dr. De Los Santos) A/P Problem List: (1) Major neurocognitive disorder ICD Code: F03.90 - Unspecified dementia without behavioral disturbance (2) Hemiparesis ICD Code: G81.90 - Hemiplegia, unspecified affecting unspecified side Status: Acute (3) Intracranial hemorrhage ICD Code: I62.9 - Nontraumatic intracranial hemorrhage, unspecified Status: Chronic (4) Aphasia ICD Code: R47.01 - Aphasia Assessment and Plan 62-year-old female with history of hemorrhagic stroke and resulting neurocognitive decline: Status post hemorrhagic CVA, new acute and subacute stroke with chronic right hemiplegia and aphasia. Questionable new facial droop on 01/10; Brain MRI 01/11 showed acute to subacute left thalamic infarct with mild hemorrhagic component in patient with previous history of relatively large left thalamic CVA Neuro and neurosurgery consulted; no surgical intervention needed. Agreed to pharmacologic prophylaxis Repeat CT on 01/20 stable. Neutropenia WBC 3.9 02/17 ?etiology, possible medication side effect continue to monitor CBC closely if white count fails to improve or worsens, consider Hematology consultation - Recheck CBC later this week Recurrent UTIs ID suspected helms related infection, change monthly - last changed 02/18 repeat UA suggestive of UTI currently on Levaquin x 6weeks, Urine culture with staph sp coagulase negative, final ID pending, follow final culture and sensitivity - T-max 99.3 at 4am Stage IV sacral pressure ulcer hx PSAE infected sacral decubitus MRI showing bony edema and marrow replacement concerning for osteomyelitis; ID following, Flagyl discontinued 02/05. Continue Levaquin 02/21 - stop date in system Wound care following, S/P bedside debridement 01/11 Repositioning assistance, off pressure relief. Scheduled Tramadol for pain, hold for sedation Continue management as per infectious disease Dysphagia Due to hemorrhagic stroke Status post PEG placement on 05/09/17 Continue tube feedings HTN Continue nifedipine 40mg Q8H, Apresoline 50 mg Q8H, Metoprolol 25mg BID, HCTZ 25 mg Daily HOLD FOR HYPOTENSION Vasotec IV PRN, Clonidine PRN Hyperglycemia Glucerna for tube feeds Follow blood sugars intermittently Xeroderma on bilateral feet Lac-Hydrin 12% Lotion continued Depression Continue Lexapro 10 mg via PEG daily DVT Prophylaxis Heparin (cleared by neurosurgery) Discussed with nursing staff. Raheem Morin Feb 20, 2018 08:55
[2018-02-20 12:27] VITALS: BP 133/80; PULSE 105; RESP 14; TEMP 98.2; O2SAT 99
[2018-02-20] MEDS: LEVOFLOXACIN 750 MG TAB PEG SCH (12:29)
[2018-02-20 17:18] VITALS: BP 124/91; PULSE 65; RESP 14; TEMP 98.8; O2SAT 98
--- NOTE | 2018-02-20 17:19 | HHI.HCPN ---
Reason for visit a. To assist with evaluation and management of symptoms including: Dysphagia , b. To assist medical decision maker(s) with: better understanding of current medical conditions; weighing benefits/burdens of medical treatment options; making medical treatment decisions. Subjective/Interval History Patient seen to evaluate dysphagia and pain. She has made some small progress in aphasia and is now able to speak a few words. She has been n.p.o. on bypass tube feedings since she was last seen by speech therapy 07/14/2017 for dysphasia and aphasia. At that time she was nonverbal and unable to participate with therapy. Per my discussion with the RN, she has begun to communicate recently with slowly improving ability to form words. She remains bedbound and has subsequently developed a large coccyx wound measuring 4.3 cm x 3 cm x 1.2 cm with undermining circumferentially with maximum depth at 12:00 measuring 2.4 cm. Wound base is approximately 50% red non-granulation tissue, 40% fascia and 10% bone. There is minimal odorless, serosanguineous wound drainage. She has bilateral lower extremity muscle wasting and contractures. She receives tramadol 50 mg every 12 hours for pain. She is now able to nod when questioned about pain. She is unable to call for help to report pain. Placement continues to be an issue with no accepting facility at this time. Gerardo Aldridge, case finisher, continues to query facilities for possible acceptance. . Family/friend interactions There is no family at bedside. Her son works 2 jobs and visits most days, per the nurse. He had been at bedside previously today. Contact is limited due to his heavy work schedule. . Advance Directives Living Will: Never completed Health Care Surrogate: Never completed Durable Power of Charge Out Clerk: Never completed Advance Directive Specifics Health Care Surrogate(s): Never completed. . Documented care wishes: Never completed. . Significant change in goals: Unable to state goals. . Objective Vital Signs Date Time Temp Pulse Resp B/P (MAP) Pulse Ox O2 Delivery O2 Flow Rate FiO2 02/20/18 12:27 98.2 105 14 133/80 (97) 99 02/20/18 08:00 98.7 98 14 138/89 (105) 99 02/20/18 04:00 99.3 93 16 150/105 (120) 98 02/20/18 00:00 97.9 82 16 105/74 (84) 96 02/19/18 20:00 97.7 81 16 115/84 (94) 96 02/19/18 17:05 98.0 100 14 131/92 (105) 100 Intake & Output 02/20/18 02/20/18 07:00 19:00 Intake Total 980 ml Output Total 1100 ml Balance -120 ml Tube Feeding 480 ml Other 500 ml Output Urine Total 1100 ml # Bowel Movements 1 Physical Exam CONSTITUTIONAL/GENERAL: This is an adequately nourished patient, in no apparent distress. SKIN: No jaundice, rashes, or lesions. Sacral wound, dressed clean dry and intact. Skin temperature appropriate. Not diaphoretic. HEAD: Atraumatic. Normocephalic. EYES: Pupils equal and round and reactive. No scleral icterus. No injection or drainage. NECK: Trachea midline. Supple, nontender. CARDIOVASCULAR: Regular rate and rhythm with 2/6 systolic ejection murmur, no rub no gallop.Peripheral pulses symmetric. RESPIRATORY/CHEST: Symmetric, unlabored respirations. Clear to auscultation. Breath sounds equal bilaterally. No wheezes, rales, or rhonchi. GASTROINTESTINAL: Abdomen soft, non-tender, nondistended. No guarding. Bowel sounds present. PEG to LUQ. GENITOURINARY: Without palpable bladder distension. Cruz catheter in place. MUSCULOSKELETAL: Bilateral foot drop, no edema, muscle wasting, has podus boots in place. NEUROLOGICAL: Arouses to verbal stimuli. Right sided hemiparesis, flaccid. Right neglect. Follows simple command with left upper extremity only. Able to speak a few words intermittently. Nurse states she does speak to her son and the nurse. PSYCHIATRIC: No obvious anxiety/depression noted. . Diagnostic Tests Laboratory Laboratory Tests Test 02/18/18 13:40 Urine Color YELLOW (YELLW/STRAW) Urine Turbidity CLEAR (CLEAR) Urine pH 6.0 (5.0-8.5) Urine Specific [place] 1.015 (1.002-1.035) Urine Protein NEG mg/dL (NEG-TRACE) Urine Glucose (UA) NEG mg/dL (NEG) Urine Ketones NEG mg/dL (NEG) Urine Occult Blood NEG (NEG) Urine Nitrite NEG (NEG) Urine Bilirubin NEG (NEG) Urine Urobilinogen LESS THAN 2.0 MG/DL (LESS Urine Leukocyte Esterase MOD (NEG) Urine RBC 6 /hpf (0-3) Urine WBC 14 /hpf (0-5) Urine Bacteria FEW /hpf (NONE) Urine Mucus FEW /lpf (OCC) Microscopic Urinalysis Comment CATH-CULTURE IND Result Diagram: 02/17/18 0654 02/17/18 0654 Microbiology Microbiology Date/Time Source Procedure Growth Status 02/18/18 13:40 Urine Catheterized Urine Urine Culture - Preliminary Staph Sp Coagulase Negative Resulted Procedures 05/08/17: PEG placement . Assessment and Plan Disease Oriented Problem List: (1) Intracranial hemorrhage Comment: left thalamic hemorrhage, due to hypertensive emergency. (2) Malignant hypertension Comment: complicated by non compliance with medication due to delusion and paranoia (3) Unspecified psychosis (4) Delusional disorder (5) Hemiparesis Comment: right (6) Psychosis Symptom Scale: (1) Dysphagia 0-10 Scale: Unable to quantify (2) Aphasia 0-10 Scale: Unable to quantify (3) Hemiparesis 0-10 Scale: Unable to quantify Comment: Recent CVA . Pertinent Non-Medical Issues Psychosocial:hx of delusions, paranoia, bruno act, non-compliance, now with thalamic stroke. Pt also is pending SSI. Spiritual:scientology Legal:If not capacitated, surviving children, pt's daughter and son would be health care proxy. Son appears to be difficult to reach, per social service coordinator. Ethical issues impacting care:none at this time. Important Contacts Aleena Wallace [phone]. Number is currently disconnected. Henri Birmingham [phone], . Prognosis Patient with psychiatric hx of delusions, paranoia, has extensive hospital stay of 160 plus days after a left thalamic stroke. Pt is peg tube dependent, with hemiperisis; but has been relatively stable since April. She is at risk of recurrent hospitalization and setbacks. However given no recent pneumonia episodes, or major complications, I feel given pt continue tube feedings, prognosis is > 6 months. Albumin is 3.2 since last check on 01/27/2018. . Code Status: Full Code Plan PLAN: Legal decision maker: She has 2 children who serve as joint proxy. Goals: Aggressive. CODE STATUS: FULL CODE SYMPTOMS: * Dysphasia: Repeatedly failed swallow evaluation, ST signed off 07/2017. PEG tube placed, tolerating continuous tube feedings 40 mL/h. Since last ST evaluation, patient has improved alertness and has recovered some ability to speak. Would recommend a speech therapy evaluation to evaluate for any progress in swallowing. * Pain: Likely sources of pain are bedbound status, invasive lines, large tunnelled sacral decubitus, contractures. She is currently receiving tramadol 50 mg twice daily. She denies pain at this visit. Palliative care will continue to follow the patient during hospital course as condition evolves, to assist patient/decision-maker with understanding of their medical conditions, weighing benefits/burdens of treatment options, for clarification of goals of treatment. Additionally will assist with any symptoms of palliative concern. . Attestation To help prompt me to consider important information that might be impacting today's encounter and assessment, information from prior notes written by myself or my colleagues may have been "brought forward" into today's note. My signature on this note, however, is an attestation that I personally performed the exam, history, and/or decision-making noted today, and, unless otherwise indicated, the interactions with patient, family, and staff as well as the review of records all occurred today. I also attest that the listed assessment and stated plan reflect my best clinical judgment today based on the combination of historical information, prior notes, and today's exam/ interactions. When time spent is documented, it refers only to time spent today by the signer, or if indicated, combined time spent today by collaborating physician/nurse practitioner. . Suzi Aldridge Feb 20, 2018 5:19 pm
[2018-02-20 20:00] VITALS: BP 130/92; PULSE 85; RESP 18; TEMP 98.8; O2SAT 98
[2018-02-21] VITALS: BP 122/84; PULSE 65; RESP 16; TEMP 100; O2SAT 97
[2018-02-21 04:00] VITALS: BP 116/82; PULSE 77; RESP 16; TEMP 98.8; O2SAT 98
[2018-02-21] MEDS: FREE WATER PEG SCH ×5 (06:00→22:42)
[2018-02-21] MEDS: hydrALAZINE HCL 50 MG TAB PEG SCH ×3 (06:39→22:14)
[2018-02-21] MEDS: NIFEdipine 20 MG CAP PEG SCH ×3 (06:39→22:42)
[2018-02-21] MEDS: traMADol HCL 50 MG TAB PEG SCH ×2 (06:39→17:22)
[2018-02-21] MEDS: CHOLESTYRAMINE 4 GM PACKET PEG SCH ×3 (06:39→22:15)
[2018-02-21 08:00] VITALS: BP 136/80; PULSE 74; RESP 14; TEMP 98.1; O2SAT 98
[2018-02-21] MEDS: LACTIC ACID (AMMONIUM LACTATE) 12% LOTION 225 GM BTL TOPICAL SCH ×2 (08:44→22:16)
[2018-02-21] MEDS: JUVEN POWDER 1 PACK G-TUBE SCH ×2 (08:44→22:16)
[2018-02-21] MEDS: COLLAGENASE OINT 30 GM TUBE TOPICAL SCH (08:44)
[2018-02-21] MEDS: SODIUM HYPOCHLORITE 0.125% 500 ML BTL TOPICAL SCH (08:44)
[2018-02-21] MEDS: HEPARIN SODIUM - SQ 10,000 UNITS/ML VIAL SQ SCH ×2 (08:45→22:14)
[2018-02-21] MEDS: HYDROCHLOROTHIAZIDE 25 MG TAB PEG SCH (08:45)
[2018-02-21] MEDS: LANSOPRAZOLE SOLUTAB 30 MG TAB G-TUBE SCH (08:45)
[2018-02-21] MEDS: ESCITALOPRAM OXALATE 10 MG TAB PEG SCH (08:45)
[2018-02-21] MEDS: LACTOBACILLUS ACIDOPHILUS TAB PEG SCH ×3 (08:45→17:21)
[2018-02-21] MEDS: METOPROLOL TARTRATE 25 MG TAB PEG SCH ×2 (08:45→22:14)
--- NOTE | 2018-02-21 10:16 | HHI.PR ---
Subjective Remarks Son visiting this morning. Patient in no distress. No acute concerns today. Unable to obtain history due to CVA. No distress when seen. Vital signs stable. Objective Vital Signs Date Time Temp Pulse Resp B/P (MAP) Pulse Ox O2 Delivery O2 Flow Rate FiO2 02/21/18 04:00 98.8 77 16 116/82 (93) 98 02/21/18 00:00 100.0 65 16 122/84 (97) 97 02/20/18 20:00 98.8 85 18 130/92 (105) 98 02/20/18 17:18 98.8 65 14 124/91 (102) 98 02/20/18 12:27 98.2 105 14 133/80 (97) 99 I/O 02/20/18 02/20/18 02/20/18 02/21/18 02/21/18 02/21/18 07:00 15:00 23:00 07:00 15:00 23:00 Intake Total 980 ml 1000 ml 754 ml Output Total 1100 ml 1750 ml 275 ml Balance -120 ml -750 ml 479 ml Tube Feeding 480 ml 600 ml 354 ml Other 500 ml 400 ml 400 ml Output Urine Total 1100 ml 1750 ml 275 ml # Bowel Movements 1 2 Result Diagram: 02/17/18 0654 02/17/18 0654 Procedures Peg Tube placed 05/08/17 (Dr. De Los Santos) Objective Remarks GENERAL: NAD, A&Ox0 HEAD: Normocephalic. NECK: Supple, trachea midline. No lymphadenopathy. EYES: No scleral icterus. No injection or drainage. CARDIOVASCULAR: Regular rate and rhythm without murmurs, gallops, or rubs. RESPIRATORY: Breath sounds equal bilaterally. No accessory muscle use. GASTROINTESTINAL: Abdomen soft, non-tender, nondistended. MUSCULOSKELETAL: No cyanosis, or edema. SKIN: Warm and dry. NEURO: No focal neurological deficitis. A/P Problem List: (1) Major neurocognitive disorder ICD Code: F03.90 - Unspecified dementia without behavioral disturbance Assessment and Plan 62-year-old female admitted secondary to intracranial hemorrhage on 04/10/17. Doing well. No pain. No acute concerns. Patient is comfortable. Sacral ulcer Stage IV pressure ulcer Continue wound care Continue monitoring Status post intracranial hemorrhage Status post hemorrhagic CVA Continue PT, OT, and ST Patient was homeless prior to admit Poor access for inpatient rehabilitation Family desires aggressive measures for therapy and placement Independent funding unavailable for placement Long-term prognosis is poor No significant capacity for regaining full functionality Dysphagia Related to intracranial bleed history Status post PEG placement on 05/09/17 Continue tube feeding Hypertension emergency Follow blood pressures Continue the following blood pressures: Nifedipine 40 mg every 6 hours Lisinopril 10 mg twice daily Apresoline 50 mg every 6 hours Catapres TTS 3 patch Metoprolol 100 mg twice daily HCTZ 25 mg daily Apresoline, clonidine, Vasotec as needed Hyperglycemia Glucerna for tube feeds Follow blood sugars intermittently Xeroderma on bilateral feet Lac-Hydrin 12% Lotion continued. DVT Prophylaxis: SCDs given history of intracranial hemorrhage Discharge planning Difficult placement Palliative care following Timmy Cano MD Feb 21, 2018 10:16
[2018-02-21 12:00] VITALS: BP 140/82; PULSE 70; RESP 14; TEMP 98.1; O2SAT 99
[2018-02-21 17:19] VITALS: BP 138/88; PULSE 89; RESP 12; TEMP 97.9; O2SAT 99
[2018-02-21 20:00] VITALS: BP 129/69; PULSE 74; RESP 16; TEMP 98.6; O2SAT 97
[2018-02-22] VITALS: BP 115/86; PULSE 84; RESP 16; TEMP 99.2; O2SAT 97
[2018-02-22 04:00] VITALS: BP 105/73; PULSE 81; RESP 16; TEMP 97.9; O2SAT 96
[2018-02-22] MEDS: CHOLESTYRAMINE 4 GM PACKET PEG SCH ×3 (05:51→20:52)
[2018-02-22] MEDS: hydrALAZINE HCL 50 MG TAB PEG SCH ×3 (05:52→20:46)
[2018-02-22] MEDS: NIFEdipine 20 MG CAP PEG SCH ×3 (05:52→20:46)
[2018-02-22] MEDS: FREE WATER PEG SCH ×3 (05:52→17:28)
[2018-02-22] MEDS: traMADol HCL 50 MG TAB PEG SCH ×2 (05:52→17:28)
[2018-02-22 07:48] LABS: AUTOMATED NEUTROPHIL # 3.5 TH/MM3 (1.8-7.7); BASOPHIL % 0.5 % (0.0-2.0); EOSINOPHIL # 0.4 TH/MM3 (0-0.4); EOSINOPHIL % 6.4 % (0.0-4.0); HEMATOCRIT 37.3 % (35.0-46.0); HEMOGLOBIN 12.3 GM/DL (11.6-15.3); LYMPH % 23.4 % (9.0-44.0); LYMPHOCYTE # 1.4 TH/MM3 (1.0-4.8); MEAN CELL VOLUME 82.2 FL (80.0-100.0); MEAN CORPUSCULAR HGB CONC 32.9 % (32.0-36.0); MEAN PLATELET VOLUME 9.1 FL (7.0-11.0); MONOCYTE # 0.7 TH/MM3 (0-0.9); NEUT % 57.7 % (16.0-70.0); PLATELET COUNT 329 TH/MM3 (150-450); RED BLOOD COUNT 4.53 MIL/MM3 (4.00-5.30); RED CELL DISTRIBUTION WIDTH 19.1 % (11.6-17.2); WHITE BLOOD COUNT 6.1 TH/MM3 (4.0-11.0)
[2018-02-22 08:00] VITALS: BP 122/91; PULSE 111; RESP 16; TEMP 99; O2SAT 98
[2018-02-22] MEDS: HYDROCHLOROTHIAZIDE 25 MG TAB PEG SCH (09:10)
[2018-02-22] MEDS: LACTOBACILLUS ACIDOPHILUS TAB PEG SCH ×3 (09:10→17:28)
[2018-02-22] MEDS: HEPARIN SODIUM - SQ 10,000 UNITS/ML VIAL SQ SCH ×2 (09:10→20:46)
[2018-02-22] MEDS: ESCITALOPRAM OXALATE 10 MG TAB PEG SCH (09:10)
[2018-02-22] MEDS: SODIUM HYPOCHLORITE 0.125% 500 ML BTL TOPICAL SCH (09:11)
[2018-02-22] MEDS: LANSOPRAZOLE SOLUTAB 30 MG TAB G-TUBE SCH (09:11)
[2018-02-22] MEDS: METOPROLOL TARTRATE 25 MG TAB PEG SCH ×2 (09:11→20:46)
[2018-02-22] MEDS: JUVEN POWDER 1 PACK G-TUBE SCH ×2 (09:11→21:00)
[2018-02-22] MEDS: COLLAGENASE OINT 30 GM TUBE TOPICAL SCH (09:12)
[2018-02-22] MEDS: LACTIC ACID (AMMONIUM LACTATE) 12% LOTION 225 GM BTL TOPICAL SCH ×2 (09:12→22:42)
--- NOTE | 2018-02-22 10:28 | HHI.PR ---
Subjective Remarks Doing well today. Patient in no distress. No acute concerns today. Unable to obtain history due to CVA. No distress when seen. Vital signs stable. Objective Vital Signs Date Time Temp Pulse Resp B/P (MAP) Pulse Ox O2 Delivery O2 Flow Rate FiO2 02/22/18 04:00 97.9 81 16 105/73 (84) 96 02/22/18 00:00 99.2 84 16 115/86 (96) 97 02/21/18 20:00 98.6 74 16 129/69 (89) 97 02/21/18 17:19 97.9 89 12 138/88 (105) 99 02/21/18 12:00 98.1 70 14 140/82 (101) 99 I/O 02/21/18 02/21/18 02/21/18 02/22/18 02/22/18 02/22/18 07:00 15:00 23:00 07:00 15:00 23:00 Intake Total 754 ml 1000 ml Output Total 275 ml 1000 ml 650 ml Balance 479 ml 0 ml -650 ml Tube Feeding 354 ml 600 ml Other 400 ml 400 ml Output Urine Total 275 ml 1000 ml 650 ml # Bowel Movements 1 1 Result Diagram: 02/22/18 0657 Procedures Peg Tube placed 05/08/17 (Dr. De Los Santos) Objective Remarks GENERAL: NAD, A&Ox0 HEAD: Normocephalic. NECK: Supple, trachea midline. No lymphadenopathy. EYES: No scleral icterus. No injection or drainage. CARDIOVASCULAR: Regular rate and rhythm without murmurs, gallops, or rubs. RESPIRATORY: Breath sounds equal bilaterally. No accessory muscle use. GASTROINTESTINAL: Abdomen soft, non-tender, nondistended. MUSCULOSKELETAL: No cyanosis, or edema. SKIN: Warm and dry. NEURO: No focal neurological deficitis. A/P Problem List: (1) Major neurocognitive disorder ICD Code: F03.90 - Unspecified dementia without behavioral disturbance Assessment and Plan 62-year-old female admitted secondary to intracranial hemorrhage on 04/10/17. Continue to follow vital signs. No change in last 24 hours. Sacral ulcer Stage IV pressure ulcer Continue wound care Continue monitoring Status post intracranial hemorrhage Status post hemorrhagic CVA Continue PT, OT, and ST Patient was homeless prior to admit Poor access for inpatient rehabilitation Family desires aggressive measures for therapy and placement Independent funding unavailable for placement Long-term prognosis is poor No significant capacity for regaining full functionality Dysphagia Related to intracranial bleed history Status post PEG placement on 05/09/17 Continue tube feeding Hypertension emergency Follow blood pressures Continue the following blood pressures: Nifedipine 40 mg every 6 hours Lisinopril 10 mg twice daily Apresoline 50 mg every 6 hours Catapres TTS 3 patch Metoprolol 100 mg twice daily HCTZ 25 mg daily Apresoline, clonidine, Vasotec as needed Hyperglycemia Glucerna for tube feeds Follow blood sugars intermittently Xeroderma on bilateral feet Lac-Hydrin 12% Lotion continued. DVT Prophylaxis: SCDs given history of intracranial hemorrhage Discharge planning Difficult placement Palliative care following Timmy Cano MD Feb 22, 2018 10:28
[2018-02-22 12:00] VITALS: BP 99/71; PULSE 81; RESP 18; TEMP 99.2; O2SAT 98
[2018-02-22 16:00] VITALS: BP 119/64; PULSE 110; RESP 16; TEMP 99.2; O2SAT 95
[2018-02-22 20:32] VITALS: BP 130/91; PULSE 98; RESP 18; TEMP 99.2; O2SAT 99
[2018-02-23 01:07] VITALS: BP 137/97; PULSE 100; RESP 18; TEMP 99.1; O2SAT 96
[2018-02-23 05:37] VITALS: BP 119/85; PULSE 93; RESP 20; TEMP 99.5; O2SAT 98
[2018-02-23] MEDS: FREE WATER PEG SCH ×4 (06:00→17:17)
[2018-02-23] MEDS: CHOLESTYRAMINE 4 GM PACKET PEG SCH ×3 (06:40→20:23)
[2018-02-23] MEDS: hydrALAZINE HCL 50 MG TAB PEG SCH ×3 (06:40→20:23)
[2018-02-23] MEDS: traMADol HCL 50 MG TAB PEG SCH ×2 (06:40→17:17)
[2018-02-23] MEDS: NIFEdipine 20 MG CAP PEG SCH ×3 (06:40→20:20)
[2018-02-23 08:00] VITALS: BP 105/77; PULSE 96; RESP 16; TEMP 99.9; O2SAT 97
--- NOTE | 2018-02-23 10:12 | HHI.PR ---
Subjective Remarks No changes overnight. Patient in no distress. No acute concerns today. Unable to obtain history due to CVA. No distress when seen. Vital signs stable. Objective Vital Signs Date Time Temp Pulse Resp B/P (MAP) Pulse Ox O2 Delivery O2 Flow Rate FiO2 02/23/18 08:00 99.9 96 16 105/77 (86) 97 02/23/18 05:37 99.5 93 20 119/85 (96) 98 02/23/18 01:07 99.1 100 18 137/97 (110) 96 02/22/18 20:32 99.2 98 18 130/91 (104) 99 02/22/18 16:00 99.2 110 16 119/64 (82) 95 02/22/18 12:00 99.2 81 18 99/71 (80) 98 I/O 02/22/18 02/22/18 02/22/18 02/23/18 02/23/18 02/23/18 07:00 15:00 23:00 07:00 15:00 23:00 Intake Total 896 ml 2500 ml Output Total 650 ml 950 ml 500 ml Balance -650 ml -54 ml 2000 ml Tube Feeding 496 ml 1500 ml Other 400 ml 1000 ml Output Urine Total 650 ml 950 ml 500 ml # Bowel Movements 1 Result Diagram: 02/22/18 0657 Procedures Peg Tube placed 05/08/17 (Dr. De Los Santos) Objective Remarks GENERAL: NAD, A&Ox0 HEAD: Normocephalic. NECK: Supple, trachea midline. No lymphadenopathy. EYES: No scleral icterus. No injection or drainage. CARDIOVASCULAR: Regular rate and rhythm without murmurs, gallops, or rubs. RESPIRATORY: Breath sounds equal bilaterally. No accessory muscle use. GASTROINTESTINAL: Abdomen soft, non-tender, nondistended. MUSCULOSKELETAL: No cyanosis, or edema. SKIN: Warm and dry. NEURO: No focal neurological deficitis. A/P Problem List: (1) Major neurocognitive disorder ICD Code: F03.90 - Unspecified dementia without behavioral disturbance Assessment and Plan 62-year-old female admitted secondary to intracranial hemorrhage on 04/10/17. No acute changes overnight. Follow vital signs. Lab profile and UA. Sacral ulcer Stage IV pressure ulcer Continue wound care Continue monitoring Status post intracranial hemorrhage Status post hemorrhagic CVA Continue PT, OT, and ST Patient was homeless prior to admit Poor access for inpatient rehabilitation Family desires aggressive measures for therapy and placement Independent funding unavailable for placement Long-term prognosis is poor No significant capacity for regaining full functionality Dysphagia Related to intracranial bleed history Status post PEG placement on 05/09/17 Continue tube feeding Hypertension emergency Follow blood pressures Continue the following blood pressures: Nifedipine 40 mg every 6 hours Lisinopril 10 mg twice daily Apresoline 50 mg every 6 hours Catapres TTS 3 patch Metoprolol 100 mg twice daily HCTZ 25 mg daily Apresoline, clonidine, Vasotec as needed Hyperglycemia Glucerna for tube feeds Follow blood sugars intermittently Xeroderma on bilateral feet Lac-Hydrin 12% Lotion continued. DVT Prophylaxis: SCDs given history of intracranial hemorrhage Discharge planning Difficult placement Palliative care following Timmy Cano MD Feb 23, 2018 10:11
[2018-02-23] MEDS: LACTOBACILLUS ACIDOPHILUS TAB PEG SCH ×3 (10:17→17:17)
[2018-02-23] MEDS: ESCITALOPRAM OXALATE 10 MG TAB PEG SCH (10:17)
[2018-02-23] MEDS: METOPROLOL TARTRATE 25 MG TAB PEG SCH ×2 (10:17→20:21)
[2018-02-23] MEDS: HYDROCHLOROTHIAZIDE 25 MG TAB PEG SCH (10:17)
[2018-02-23] MEDS: LANSOPRAZOLE SOLUTAB 30 MG TAB G-TUBE SCH (10:17)
[2018-02-23] MEDS: HEPARIN SODIUM - SQ 10,000 UNITS/ML VIAL SQ SCH ×2 (10:17→20:21)
[2018-02-23] MEDS: JUVEN POWDER 1 PACK G-TUBE SCH ×2 (10:18→20:21)
[2018-02-23] MEDS: LACTIC ACID (AMMONIUM LACTATE) 12% LOTION 225 GM BTL TOPICAL SCH ×2 (10:18→20:23)
[2018-02-23] MEDS: SODIUM HYPOCHLORITE 0.125% 500 ML BTL TOPICAL SCH (10:18)
[2018-02-23] MEDS: COLLAGENASE OINT 30 GM TUBE TOPICAL SCH (10:19)
[2018-02-23 12:00] VITALS: BP 120/85; PULSE 82; RESP 18; TEMP 99.7; O2SAT 98
[2018-02-23] MEDS ORDERED: TRIMETHOPRIM IV SCH ×2 (15:00)
[2018-02-23] MEDS ORDERED: WATE IV SCH ×2 (15:00)
[2018-02-23] MEDS ORDERED: SULFAMETHOX IV SCH ×2 (15:00)
[2018-02-23] MEDS ORDERED: DEXTROSE 5% IV SCH ×2 (15:00)
[2018-02-23 16:00] VITALS: BP 104/78; PULSE 105; RESP 20; TEMP 99.4; O2SAT 97
[2018-02-23] MEDS ORDERED: DIPHENOXYLATE/ATROPINE 2.5 MG/0.025 MG/5 ML CUP PO PRN (16:30)
[2018-02-23 20:24] VITALS: BP 121/89; PULSE 95; RESP 21; TEMP 99.9
[2018-02-23 21:43] LABS: AMORPHOUS SEDIMENT, URINE RARE; BACTERIA, URINE RARE /hpf; BILIRUBIN, URINE NEG (NEG); BLOOD, URINE NEG (NEG); GLUCOSE,URINE NEG (NEG); KETONE, URINE NEG (NEG); NITRITE,URINE POS (NEG); URINE COLOR YELLOW (YELLW/STRAW); URINE LEUKOCYTE ESTERASE MOD (NEG)
[2018-02-23] MEDS: SULFAMETHOXAZOLE-TRIMETHOPRIM 800-160 MG/20 ML UDC PEG SCH (21:46)
[2018-02-24] VITALS (8 sets, daily range): BP systolic 111–142; BP diastolic 78–98; PULSE 72–98; RESP 16–21; TEMP 96.7–99.5; O2SAT 96–99
[2018-02-24] MEDS: NIFEdipine 20 MG CAP PEG SCH ×3 (05:21→21:36)
[2018-02-24] MEDS: FREE WATER PEG SCH ×5 (05:22→23:44)
[2018-02-24] MEDS: CHOLESTYRAMINE 4 GM PACKET PEG SCH ×3 (05:22→21:36)
[2018-02-24] MEDS: traMADol HCL 50 MG TAB PEG SCH ×2 (05:22→18:04)
[2018-02-24] MEDS: hydrALAZINE HCL 50 MG TAB PEG SCH ×3 (05:22→21:36)
[2018-02-24] MEDS: SODIUM HYPOCHLORITE 0.125% 500 ML BTL TOPICAL SCH (09:00)
[2018-02-24] MEDS: JUVEN POWDER 1 PACK G-TUBE SCH ×2 (09:00→21:00)
[2018-02-24] MEDS: COLLAGENASE OINT 30 GM TUBE TOPICAL SCH (09:00)
[2018-02-24] MEDS: LACTIC ACID (AMMONIUM LACTATE) 12% LOTION 225 GM BTL TOPICAL SCH ×2 (09:00→21:44)
[2018-02-24] MEDS: SULFAMETHOXAZOLE-TRIMETHOPRIM 800-160 MG/20 ML UDC PEG SCH ×2 (09:24→21:41)
[2018-02-24] MEDS: ESCITALOPRAM OXALATE 10 MG TAB PEG SCH (09:25)
[2018-02-24] MEDS: LANSOPRAZOLE SOLUTAB 30 MG TAB G-TUBE SCH (09:25)
[2018-02-24] MEDS: METOPROLOL TARTRATE 25 MG TAB PEG SCH ×2 (09:25→21:35)
[2018-02-24] MEDS: HEPARIN SODIUM - SQ 10,000 UNITS/ML VIAL SQ SCH ×2 (09:25→21:37)
[2018-02-24] MEDS: HYDROCHLOROTHIAZIDE 25 MG TAB PEG SCH (09:25)
[2018-02-24 11:33] LABS: AUTOMATED NEUTROPHIL # 2.1 TH/MM3 (1.8-7.7); BASOPHIL % 0.7 % (0.0-2.0); EOSINOPHIL # 0.2 TH/MM3 (0-0.4); EOSINOPHIL % 4.9 % (0.0-4.0); HEMATOCRIT 39.4 % (35.0-46.0); HEMOGLOBIN 12.7 GM/DL (11.6-15.3); LYMPH % 30.5 % (9.0-44.0); LYMPHOCYTE # 1.3 TH/MM3 (1.0-4.8); MEAN CORPUSCULAR HEMOGLOBIN 27.1 PG (27.0-34.0); MEAN CORPUSCULAR HGB CONC 32.3 % (32.0-36.0); MEAN PLATELET VOLUME 8.8 FL (7.0-11.0); MONO % 13.3 % (0.0-8.0); MONOCYTE # 0.6 TH/MM3 (0-0.9); NEUT % 50.6 % (16.0-70.0); PLATELET COUNT 291 TH/MM3 (150-450); RED BLOOD COUNT 4.69 MIL/MM3 (4.00-5.30); RED CELL DISTRIBUTION WIDTH 19.2 % (11.6-17.2); WHITE BLOOD COUNT 4.2 TH/MM3 (4.0-11.0)
[2018-02-24 11:48] LABS: AST (GOT) 19 U/L (15-37); BICARBONATE 27.6 MEQ/L (21.0-32.0); BLOOD UREA NITROGEN 14 MG/DL (7-18); CALCIUM 9.4 MG/DL (8.5-10.1); CHLORIDE 102 MEQ/L (98-107); CREATININE 0.45 MG/DL (0.50-1.00); GLOMERULAR FILTRATION RATE 170 ML/MIN (>89); GLUCOSE,RANDOM 97 MG/DL (74-106); SODIUM (NA) 135 MEQ/L (136-145)
[2018-02-24 11:49] LABS: ALT (GPT) 17 U/L (10-53)
[2018-02-24 11:52] LABS: ALKALINE PHOSPHATASE 84 U/L (45-117); TOTAL BILIRUBIN ADULT 0.2 MG/DL (0.2-1.0); TOTAL PROTEIN 7.5 GM/DL (6.4-8.2)
--- NOTE | 2018-02-24 12:42 | HHI.PR ---
Subjective Remarks UTI on UA. Patient in no distress. No acute concerns today. Unable to obtain history due to CVA. No distress when seen. Vital signs stable. Objective Vital Signs Date Time Temp Pulse Resp B/P (MAP) Pulse Ox O2 Delivery O2 Flow Rate FiO2 02/24/18 12:00 98.3 72 16 133/95 (108) 99 02/24/18 08:00 99.5 98 16 142/98 (113) 97 02/24/18 05:35 99.2 81 20 129/85 (100) 99 02/24/18 00:54 98.9 02/24/18 00:09 84 21 113/79 (90) 02/23/18 20:24 99.9 95 21 121/89 (100) 02/23/18 16:00 99.4 105 20 104/78 (87) 97 I/O 02/23/18 02/23/18 02/23/18 02/24/18 02/24/18 02/24/18 06:59 14:59 22:59 06:59 14:59 22:59 Intake Total 2500 ml 884 ml 850 ml Output Total 500 ml 1400 ml 700 ml Balance 2000 ml -516 ml 150 ml Tube Feeding 1500 ml 484 ml 450 ml Other 1000 ml 400 ml 400 ml Output Urine Total 500 ml 1400 ml 700 ml # Bowel Movements 1 1 Result Diagram: 02/24/18 1034 02/24/18 1034 Procedures Peg Tube placed 05/08/17 (Dr. De Los Santos) Objective Remarks GENERAL: NAD, A&Ox0 HEAD: Normocephalic. NECK: Supple, trachea midline. No lymphadenopathy. EYES: No scleral icterus. No injection or drainage. CARDIOVASCULAR: Regular rate and rhythm without murmurs, gallops, or rubs. RESPIRATORY: Breath sounds equal bilaterally. No accessory muscle use. GASTROINTESTINAL: Abdomen soft, non-tender, nondistended. MUSCULOSKELETAL: No cyanosis, or edema. SKIN: Warm and dry. NEURO: No focal neurological deficitis. A/P Problem List: (1) Major neurocognitive disorder ICD Code: F03.90 - Unspecified dementia without behavioral disturbance Assessment and Plan 62-year-old female admitted secondary to intracranial hemorrhage on 04/10/17. Labs reviewed. UA shows UTI. Bactrim initiated as a treatment via PEG. No concerns on CBC, or BMP. No acute changes overnight. Follow vital signs. Sacral ulcer Stage IV pressure ulcer Continue wound care Continue monitoring Status post intracranial hemorrhage Status post hemorrhagic CVA Continue PT, OT, and ST Patient was homeless prior to admit Poor access for inpatient rehabilitation Family desires aggressive measures for therapy and placement Independent funding unavailable for placement Long-term prognosis is poor No significant capacity for regaining full functionality Dysphagia Related to intracranial bleed history Status post PEG placement on 05/09/17 Continue tube feeding Hypertension emergency Follow blood pressures Continue the following blood pressures: Nifedipine 40 mg every 6 hours Lisinopril 10 mg twice daily Apresoline 50 mg every 6 hours Catapres TTS 3 patch Metoprolol 100 mg twice daily HCTZ 25 mg daily Apresoline, clonidine, Vasotec as needed Hyperglycemia Glucerna for tube feeds Follow blood sugars intermittently Xeroderma on bilateral feet Lac-Hydrin 12% Lotion continued. DVT Prophylaxis: SCDs given history of intracranial hemorrhage Discharge planning Difficult placement Palliative care following Timmy Cano MD Feb 24, 2018 12:42
[2018-02-24] MEDS: LACTOBACILLUS ACIDOPHILUS TAB PEG SCH ×2 (14:43→18:04)
[2018-02-25 04:00] VITALS: BP 125/82; PULSE 85; RESP 16; TEMP 98.5; O2SAT 98
[2018-02-25] MEDS: CHOLESTYRAMINE 4 GM PACKET PEG SCH ×3 (05:47→21:07)
[2018-02-25] MEDS: FREE WATER PEG SCH ×3 (05:47→17:38)
[2018-02-25] MEDS: NIFEdipine 20 MG CAP PEG SCH ×3 (05:47→21:06)
[2018-02-25] MEDS: traMADol HCL 50 MG TAB PEG SCH ×2 (05:47→17:38)
[2018-02-25] MEDS: hydrALAZINE HCL 50 MG TAB PEG SCH ×3 (05:47→21:07)
[2018-02-25 08:00] VITALS: BP 123/86; PULSE 98; RESP 16; TEMP 98.9; O2SAT 95
[2018-02-25] MEDS: JUVEN POWDER 1 PACK G-TUBE SCH ×2 (09:00→21:09)
[2018-02-25] MEDS: SODIUM HYPOCHLORITE 0.125% 500 ML BTL TOPICAL SCH (09:00)
[2018-02-25] MEDS: COLLAGENASE OINT 30 GM TUBE TOPICAL SCH (09:00)
[2018-02-25] MEDS: LACTIC ACID (AMMONIUM LACTATE) 12% LOTION 225 GM BTL TOPICAL SCH ×2 (09:00→21:08)
[2018-02-25] MEDS: HEPARIN SODIUM - SQ 10,000 UNITS/ML VIAL SQ SCH ×2 (09:52→21:06)
[2018-02-25] MEDS: LACTOBACILLUS ACIDOPHILUS TAB PEG SCH ×3 (09:52→17:38)
[2018-02-25] MEDS: LANSOPRAZOLE SOLUTAB 30 MG TAB G-TUBE SCH (09:53)
[2018-02-25] MEDS: HYDROCHLOROTHIAZIDE 25 MG TAB PEG SCH (09:53)
[2018-02-25] MEDS: METOPROLOL TARTRATE 25 MG TAB PEG SCH ×2 (09:53→21:07)
[2018-02-25] MEDS: ESCITALOPRAM OXALATE 10 MG TAB PEG SCH (09:53)
[2018-02-25] MEDS: SULFAMETHOXAZOLE-TRIMETHOPRIM 800-160 MG/20 ML UDC PEG SCH ×2 (09:53→21:06)
--- NOTE | 2018-02-25 10:42 | HHI.PR ---
Subjective Remarks Stable compared to yesterday. No acute concerns today. Unable to obtain history due to CVA. No distress when seen. Vital signs stable. Objective Vital Signs Date Time Temp Pulse Resp B/P (MAP) Pulse Ox O2 Delivery O2 Flow Rate FiO2 02/25/18 08:00 98.9 98 16 123/86 (98) 95 02/25/18 04:00 98.5 85 16 125/82 (96) 98 02/24/18 23:38 96.7 77 16 132/89 (103) 98 02/24/18 20:05 98.6 74 16 129/87 (101) 96 02/24/18 16:00 99.1 76 16 111/78 (89) 98 02/24/18 12:00 98.3 72 16 133/95 (108) 99 I/O 02/24/18 02/24/18 02/24/18 02/25/18 02/25/18 02/25/18 07:00 15:00 23:00 07:00 15:00 23:00 Intake Total 850 ml 880 ml 880 ml Output Total 700 ml 850 ml 1200 ml Balance 150 ml 30 ml -320 ml Tube Feeding 450 ml 480 ml 480 ml Other 400 ml 400 ml 400 ml Output Urine Total 700 ml 850 ml 1200 ml # Bowel Movements 1 0 Result Diagram: 02/24/18 1034 02/24/18 1034 Procedures Peg Tube placed 05/08/17 (Dr. De Los Santos) Objective Remarks GENERAL: NAD, A&Ox0 HEAD: Normocephalic. NECK: Supple, trachea midline. No lymphadenopathy. EYES: No scleral icterus. No injection or drainage. CARDIOVASCULAR: Regular rate and rhythm without murmurs, gallops, or rubs. RESPIRATORY: Breath sounds equal bilaterally. No accessory muscle use. GASTROINTESTINAL: Abdomen soft, non-tender, nondistended. MUSCULOSKELETAL: No cyanosis, or edema. SKIN: Warm and dry. NEURO: No focal neurological deficitis. A/P Problem List: (1) Major neurocognitive disorder ICD Code: F03.90 - Unspecified dementia without behavioral disturbance Assessment and Plan 62-year-old female admitted secondary to intracranial hemorrhage on 04/10/17. Continue Bactrim. Follow urine cultures. Sacral ulcer Stage IV pressure ulcer Continue wound care Continue monitoring Status post intracranial hemorrhage Status post hemorrhagic CVA Continue PT, OT, and ST Patient was homeless prior to admit Poor access for inpatient rehabilitation Family desires aggressive measures for therapy and placement Independent funding unavailable for placement Long-term prognosis is poor No significant capacity for regaining full functionality Dysphagia Related to intracranial bleed history Status post PEG placement on 05/09/17 Continue tube feeding Hypertension emergency Follow blood pressures Continue the following blood pressures: Nifedipine 40 mg every 6 hours Lisinopril 10 mg twice daily Apresoline 50 mg every 6 hours Catapres TTS 3 patch Metoprolol 100 mg twice daily HCTZ 25 mg daily Apresoline, clonidine, Vasotec as needed Hyperglycemia Glucerna for tube feeds Follow blood sugars intermittently Xeroderma on bilateral feet Lac-Hydrin 12% Lotion continued. DVT Prophylaxis: SCDs given history of intracranial hemorrhage Discharge planning Difficult placement Palliative care following Timmy Cano MD Feb 25, 2018 10:42
[2018-02-25 12:00] VITALS: BP 103/67; PULSE 81; RESP 16; TEMP 98.9; O2SAT 97
[2018-02-25 16:00] VITALS: BP 104/76; PULSE 80; RESP 16; TEMP 97.3; O2SAT 97
[2018-02-25] MEDS: FLUCONAZOLE 400 MG PREMIX BAG 200 ML IV SCH (17:37)
[2018-02-25 20:00] VITALS: BP 110/80; PULSE 80; RESP 16; TEMP 98; O2SAT 96
[2018-02-26] VITALS: BP 121/82; PULSE 88; RESP 16; TEMP 98.2; O2SAT 96
[2018-02-26 04:00] VITALS: BP 108/77; PULSE 86; RESP 16; TEMP 97.9; O2SAT 98
[2018-02-26] MEDS: NIFEdipine 20 MG CAP PEG SCH ×3 (05:14→21:50)
[2018-02-26] MEDS: CHOLESTYRAMINE 4 GM PACKET PEG SCH ×3 (05:15→21:49)
[2018-02-26] MEDS: hydrALAZINE HCL 50 MG TAB PEG SCH ×3 (05:15→21:50)
[2018-02-26] MEDS: traMADol HCL 50 MG TAB PEG SCH ×2 (05:15→17:45)
[2018-02-26 08:00] VITALS: BP 123/86; PULSE 90; RESP 16; TEMP 99.7; O2SAT 95
--- NOTE | 2018-02-26 08:45 | HHI.PR ---
Subjective Remarks Tolerating PEG antibiotics. No clinical signs of infection. Stable compared to yesterday. No acute concerns today. Unable to obtain history due to CVA. No distress when seen. Vital signs stable. Objective Vital Signs Date Time Temp Pulse Resp B/P (MAP) Pulse Ox O2 Delivery O2 Flow Rate FiO2 02/26/18 04:00 97.9 86 16 108/77 (87) 98 02/26/18 00:00 98.2 88 16 121/82 (95) 96 02/25/18 20:00 98.0 80 16 110/80 (90) 96 02/25/18 16:00 97.3 80 16 104/76 (85) 97 02/25/18 12:00 98.9 81 16 103/67 (79) 97 I/O 02/25/18 02/25/18 02/25/18 02/26/18 02/26/18 02/26/18 07:00 15:00 23:00 07:00 15:00 23:00 Intake Total 880 ml 780 ml 1473 ml Output Total 1200 ml 1200 ml 950 ml Balance -320 ml -420 ml 523 ml Tube Feeding 480 ml 480 ml 1073 ml Other 400 ml 300 ml 400 ml Output Urine Total 1200 ml 1200 ml 950 ml # Bowel Movements 0 0 Result Diagram: 02/24/18 1034 02/24/18 1034 Procedures Peg Tube placed 05/08/17 (Dr. De Los Santos) Objective Remarks GENERAL: NAD, A&Ox0 HEAD: Normocephalic. NECK: Supple, trachea midline. No lymphadenopathy. EYES: No scleral icterus. No injection or drainage. CARDIOVASCULAR: Regular rate and rhythm without murmurs, gallops, or rubs. RESPIRATORY: Breath sounds equal bilaterally. No accessory muscle use. GASTROINTESTINAL: Abdomen soft, non-tender, nondistended. MUSCULOSKELETAL: No cyanosis, or edema. SKIN: Warm and dry. NEURO: No focal neurological deficitis. A/P Problem List: (1) Major neurocognitive disorder ICD Code: F03.90 - Unspecified dementia without behavioral disturbance Assessment and Plan 62-year-old female admitted secondary to intracranial hemorrhage on 04/10/17. Continue Bactrim for a total of 5 days. Continue Diflucan for a total of 7 days. Follow urine cultures for pending sensitivities. Sacral ulcer Stage IV pressure ulcer Continue wound care Continue monitoring Status post intracranial hemorrhage Status post hemorrhagic CVA Continue PT, OT, and ST Patient was homeless prior to admit Poor access for inpatient rehabilitation Family desires aggressive measures for therapy and placement Independent funding unavailable for placement Long-term prognosis is poor No significant capacity for regaining full functionality Dysphagia Related to intracranial bleed history Status post PEG placement on 05/09/17 Continue tube feeding Hypertension emergency Follow blood pressures Continue the following blood pressures: Nifedipine 40 mg every 6 hours Lisinopril 10 mg twice daily Apresoline 50 mg every 6 hours Catapres TTS 3 patch Metoprolol 100 mg twice daily HCTZ 25 mg daily Apresoline, clonidine, Vasotec as needed Hyperglycemia Glucerna for tube feeds Follow blood sugars intermittently Xeroderma on bilateral feet Lac-Hydrin 12% Lotion continued. DVT Prophylaxis: SCDs given history of intracranial hemorrhage Discharge planning Difficult placement Palliative care following Timmy Cano MD Feb 26, 2018 08:45
[2018-02-26] MEDS: HYDROCHLOROTHIAZIDE 25 MG TAB PEG SCH (08:49)
[2018-02-26] MEDS: HEPARIN SODIUM - SQ 10,000 UNITS/ML VIAL SQ SCH ×2 (08:49→21:50)
[2018-02-26] MEDS: LANSOPRAZOLE SOLUTAB 30 MG TAB G-TUBE SCH (08:49)
[2018-02-26] MEDS: ESCITALOPRAM OXALATE 10 MG TAB PEG SCH (08:49)
[2018-02-26] MEDS: SULFAMETHOXAZOLE-TRIMETHOPRIM 800-160 MG/20 ML UDC PEG SCH ×2 (08:49→21:55)
[2018-02-26] MEDS: FREE WATER PEG SCH ×4 (08:50→17:45)
[2018-02-26] MEDS: JUVEN POWDER 1 PACK G-TUBE SCH ×2 (08:50→21:51)
[2018-02-26] MEDS: LACTIC ACID (AMMONIUM LACTATE) 12% LOTION 225 GM BTL TOPICAL SCH ×2 (08:51→21:51)
[2018-02-26] MEDS: COLLAGENASE OINT 30 GM TUBE TOPICAL SCH (08:51)
[2018-02-26] MEDS: METOPROLOL TARTRATE 25 MG TAB PEG SCH ×2 (08:51→21:50)
[2018-02-26] MEDS: SODIUM HYPOCHLORITE 0.125% 500 ML BTL TOPICAL SCH (08:51)
[2018-02-26] MEDS: LACTOBACILLUS ACIDOPHILUS TAB PEG SCH ×3 (09:42→17:45)
[2018-02-26 12:00] VITALS: BP 121/87; PULSE 89; RESP 18; TEMP 99.7; O2SAT 97
[2018-02-26 16:00] VITALS: BP 104/72; PULSE 96; RESP 16; TEMP 99.5; O2SAT 95
[2018-02-26] MEDS: FLUCONAZOLE 400 MG PREMIX BAG 200 ML IV SCH (17:45)
[2018-02-26 20:24] VITALS: BP 120/84; PULSE 92; RESP 16; TEMP 98.8; O2SAT 99
[2018-02-27] VITALS: BP 116/81; PULSE 84; RESP 16; TEMP 98.6; O2SAT 94
[2018-02-27] MEDS: FREE WATER PEG SCH ×5 (00:18→23:34)
[2018-02-27] MEDS: CHOLESTYRAMINE 4 GM PACKET PEG SCH ×3 (05:59→22:22)
[2018-02-27] MEDS: traMADol HCL 50 MG TAB PEG SCH ×2 (06:00→17:08)
[2018-02-27] MEDS: NIFEdipine 20 MG CAP PEG SCH ×3 (06:00→22:22)
[2018-02-27] MEDS: hydrALAZINE HCL 50 MG TAB PEG SCH ×3 (06:00→22:23)
[2018-02-27 08:00] VITALS: BP 155/74; PULSE 100; RESP 16; TEMP 99.1; O2SAT 97
[2018-02-27] MEDS: JUVEN POWDER 1 PACK G-TUBE SCH ×2 (09:00→22:24)
[2018-02-27] MEDS: HYDROCHLOROTHIAZIDE 25 MG TAB PEG SCH (09:01)
[2018-02-27] MEDS: LANSOPRAZOLE SOLUTAB 30 MG TAB G-TUBE SCH (09:01)
[2018-02-27] MEDS: SULFAMETHOXAZOLE-TRIMETHOPRIM 800-160 MG/20 ML UDC PEG SCH ×2 (09:01→22:22)
[2018-02-27] MEDS: LACTOBACILLUS ACIDOPHILUS TAB PEG SCH ×3 (09:01→17:07)
[2018-02-27] MEDS: ESCITALOPRAM OXALATE 10 MG TAB PEG SCH (09:02)
[2018-02-27] MEDS: METOPROLOL TARTRATE 25 MG TAB PEG SCH ×2 (09:02→22:22)
[2018-02-27] MEDS: COLLAGENASE OINT 30 GM TUBE TOPICAL SCH (09:03)
[2018-02-27] MEDS: LACTIC ACID (AMMONIUM LACTATE) 12% LOTION 225 GM BTL TOPICAL SCH ×2 (09:03→22:23)
[2018-02-27] MEDS: HEPARIN SODIUM - SQ 10,000 UNITS/ML VIAL SQ SCH ×2 (09:03→22:23)
[2018-02-27] MEDS: SODIUM HYPOCHLORITE 0.125% 500 ML BTL TOPICAL SCH (09:03)
[2018-02-27 10:00] VITALS: BP 149/76; PULSE 83; RESP 20; TEMP 98.8; O2SAT 99
--- NOTE | 2018-02-27 11:37 | HHI.PR ---
Subjective Remarks awake, watching tv smiles at verbal communication follows my verbal commands by squeezing hands Per nursing, no acute issues overnight. Objective Vital Signs Date Time Temp Pulse Resp B/P (MAP) Pulse Ox O2 Delivery O2 Flow Rate FiO2 02/27/18 10:00 98.8 83 20 149/76 (100) 99 02/27/18 08:00 99.1 100 16 155/74 (101) 97 02/27/18 00:00 98.6 84 16 116/81 (93) 94 02/26/18 20:24 98.8 92 16 120/84 (96) 99 02/26/18 16:00 99.5 96 16 104/72 (83) 95 02/26/18 12:00 99.7 89 18 121/87 (98) 97 I/O 02/26/18 02/26/18 02/26/18 02/27/18 02/27/18 02/27/18 06:59 14:59 22:59 06:59 14:59 22:59 Intake Total 1473 ml 876 ml 1520 ml Output Total 950 ml 750 ml 900 ml Balance 523 ml 126 ml 620 ml Tube Feeding 1073 ml 476 ml 1120 ml Other 400 ml 400 ml 400 ml Output Urine Total 950 ml 750 ml 900 ml # Bowel Movements 0 1 0 Result Diagram: 02/24/18 1034 02/24/18 1034 Procedures Peg Tube placed 05/08/17 (Dr. De Los Santos) Objective Remarks awake, follows simple commands, Not in distress. On room air. Heart rate is regular, no murmur appreciated. Lungs are clear. Abdomen is soft and nontender. PEG site is clean. Lower extremities with significant muscle wasting and contracture. A/P Assessment and Plan Impression: Major neurocognitive disorder. Stage IV sacral ulcer. CVA. Hemorrhagic. Dysphagia. On PEG tube feeding. Placed May 09, 2017. Hypertensive emergency. Resolved. Hyperglycemia. On Glucerna for tube feeds. Plan: Patient is awake. Not on trach. Wound care is following regarding her sacral ulcers. Nursing staff is taking care of her sacral ulcers and turning her as well. Her blood pressure is stable on current regimen. Continue tube feeding. DVT prophylaxis on heparin. Discharge Planning Placement issues. Monique Ham MD Feb 27, 2018 11:37
[2018-02-27 12:00] VITALS: BP 149/76; PULSE 83; RESP 20; TEMP 98.8; O2SAT 99
[2018-02-27 16:00] VITALS: BP 162/71; PULSE 99; RESP 16; TEMP 98.9; O2SAT 96
--- NOTE | 2018-02-27 16:22 | PD.WCN.NOT ---
Wound Consult Description: Patient seen on 4th floor [facility] for follow up of Coccyx stage 4 pressure injury Communicated with: OLU Bates and placed call to Doctor Andrew for orders Recommendation: Wound VAC is recommended to be restarted with silver nitrate for the treatment of epibole wound margins. Wound VAC to be changed Monday, Monday and Monday Additional Information: Patient seen on 4th floor [facility] by science writer, and RN Jonathan 4th floor [facility], and [facility]. Patient alert in bed nonverbal.Patient required 2 person assist to reposition patient to L side side.Dressing removed from coccyx to reveal improved stage 4 pressure injury measuring 5cm x 4cm x 3 cm x 1.4cm with undermining from 9 to 2 o'clock with max depth @ 9 O'clock measuring 2.5cm.Wound base is ~80% red vascular ganulation tissue ~10% fascia, and ~10% bone .Wound drainage is minimal and sanguinous without odor. Wound cleansed with normal saline Santyl 2mm thick to wound base and quarter strength Dakin moist fluffed gauze loosely packed in wound then covered with boarder gauze.Calazime skin protectant paste was applied to periwound.Cavilon skin barrier film was applied before applying bordered gauze dressing signed and dated .Patient was repositioned off bottom with pillow in place for support. Recommendations noted above.Plan for Wound VAC to be applied tomorrow after order is placed Romelia Liz [facility] Feb 27, 2018 16:22
[2018-02-27] MEDS: FLUCONAZOLE 400 MG PREMIX BAG 200 ML IV SCH (17:07)
[2018-02-27 20:30] VITALS: BP 154/72; PULSE 97; RESP 18; TEMP 98.9; O2SAT 98
[2018-02-27] MEDS: hydrALAZINE HCL 25 MG TAB PEG PRN (22:22)
[2018-02-28 00:58] VITALS: BP 132/76; PULSE 83; RESP 18; TEMP 97.9; O2SAT 99
[2018-02-28 04:15] VITALS: BP 155/73; PULSE 87; RESP 18; TEMP 97.9; O2SAT 99
[2018-02-28] MEDS: CHOLESTYRAMINE 4 GM PACKET PEG SCH ×3 (05:37→20:58)
[2018-02-28] MEDS: NIFEdipine 20 MG CAP PEG SCH ×3 (05:37→22:00)
[2018-02-28] MEDS: hydrALAZINE HCL 50 MG TAB PEG SCH ×3 (05:38→20:59)
[2018-02-28] MEDS: FREE WATER PEG SCH ×3 (05:38→17:34)
[2018-02-28] MEDS: traMADol HCL 50 MG TAB PEG SCH ×2 (05:38→17:08)
[2018-02-28 08:00] VITALS: BP 161/79; PULSE 104; RESP 20; TEMP 98.7; O2SAT 99
[2018-02-28] MEDS: ESCITALOPRAM OXALATE 10 MG TAB PEG SCH (08:39)
[2018-02-28] MEDS: LANSOPRAZOLE SOLUTAB 30 MG TAB G-TUBE SCH (08:39)
[2018-02-28] MEDS: LACTOBACILLUS ACIDOPHILUS TAB PEG SCH ×3 (08:39→17:08)
[2018-02-28] MEDS: HYDROCHLOROTHIAZIDE 25 MG TAB PEG SCH (08:40)
[2018-02-28] MEDS: COLLAGENASE OINT 30 GM TUBE TOPICAL SCH (08:40)
[2018-02-28] MEDS: SULFAMETHOXAZOLE-TRIMETHOPRIM 800-160 MG/20 ML UDC PEG SCH ×2 (08:40→20:58)
[2018-02-28] MEDS: LACTIC ACID (AMMONIUM LACTATE) 12% LOTION 225 GM BTL TOPICAL SCH ×2 (08:40→21:00)
[2018-02-28] MEDS: SODIUM HYPOCHLORITE 0.125% 500 ML BTL TOPICAL SCH (08:40)
[2018-02-28] MEDS: METOPROLOL TARTRATE 25 MG TAB PEG SCH ×2 (08:40→20:59)
[2018-02-28] MEDS: HEPARIN SODIUM - SQ 10,000 UNITS/ML VIAL SQ SCH ×2 (08:41→20:59)
[2018-02-28] MEDS: JUVEN POWDER 1 PACK G-TUBE SCH ×2 (08:41→21:00)
--- NOTE | 2018-02-28 10:53 | HHI.PR ---
Subjective Remarks son at bedside awake, watching tv smiles at verbal communication follows my verbal commands by squeezing hands, but not talking Per nursing, no acute issues overnight. Objective Vital Signs Date Time Temp Pulse Resp B/P (MAP) Pulse Ox O2 Delivery O2 Flow Rate FiO2 02/28/18 04:15 97.9 87 18 155/73 (100) 99 02/28/18 00:58 97.9 83 18 132/76 (94) 99 02/27/18 20:30 98.9 97 18 154/72 (99) 98 02/27/18 16:00 98.9 99 16 162/71 (101) 96 02/27/18 12:00 98.8 83 20 149/76 (100) 99 I/O 02/27/18 02/27/18 02/27/18 02/28/18 02/28/18 02/28/18 07:00 15:00 23:00 07:00 15:00 23:00 Intake Total 1520 ml 892 ml 516 ml Output Total 900 ml 650 ml 1151 ml Balance 620 ml 242 ml -635 ml IV Total 10 ml Tube Feeding 1120 ml 492 ml 506 ml Other 400 ml 400 ml Output Urine Total 900 ml 650 ml 1150 ml Stool Total 1 ml # Bowel Movements 0 1 Result Diagram: 02/24/18 1034 02/24/18 1034 Procedures Peg Tube placed 05/08/17 (Dr. De Los Santos) Objective Remarks awake, follows simple commands, Not in distress. On room air. Heart rate is regular, no murmur appreciated. Lungs are clear. Abdomen is soft and nontender. PEG site is clean. Lower extremities with significant muscle wasting and contracture. A/P Assessment and Plan Impression: Major neurocognitive disorder. Stage IV sacral ulcer. CVA. Hemorrhagic. Dysphagia. On PEG tube feeding. Placed May 09, 2017. Hypertensive emergency. Resolved. Hyperglycemia. On Glucerna for tube feeds. Plan: Patient is awake. Not on trach. Wound care is following regarding her sacral ulcers. Notes from 02/27/18 reviewed - wound care is recommended - Dr Garcia to be called for orders per nursing Nursing staff is taking care of her sacral ulcers and turning her as well. Her blood pressure is stable on current regimen. Continue tube feeding. no diarrhea consult speech therapy- as pt is not talking, and seems that she actually can, maybe her mental status is playing issue with speech- OT at bedside informed me that pt used to talk while she was at [facility] DVT prophylaxis on heparin. Discharge Planning Placement issues. Monique Ham MD Feb 28, 2018 10:53
[2018-02-28 12:00] VITALS: BP 135/87; PULSE 88; RESP 21; TEMP 98.6; O2SAT 96
[2018-02-28 16:00] VITALS: BP 130/87; PULSE 86; RESP 16; TEMP 98.5; O2SAT 99
[2018-02-28] MEDS: FLUCONAZOLE 400 MG PREMIX BAG 200 ML IV SCH (17:09)
[2018-02-28] MEDS: SILVER NITR/POTASSIUM NITRATE APPLICATORS TOPICAL SCH (18:02)
--- NOTE | 2018-02-28 18:25 | PD.WCN.NOT ---
Wound Consult Description: Patient seen on 4th floor [facility] for follow up of Coccyx stage 4 pressure injury with Wound VAC placement Communicated with: LINSEY Ramirez 4th floor [facility] Additional Information: See NPTW Neg Pressure Wound Therapy Wound Location Wound Location: coccyx Wound Description Length: 5cm Width: 4cm Depth: 1.4 cm Undermining: undermining from 9 to 2 o'clock with max depth @ 9 O'clock measuring 2.5cm Wound bed appearance: ~90% red granulation tissue and ~10% bone Periwound appearance: Other (Full thickness skin loss between 8 and 9 o' clock.epibole to wound margins with some maceration) Settings Suction: 125 mmHg, Continuous Intensity: Low Other Information: Bridged, Windowpaned, Mushroomed Foam type: Black Number of pieces: 1 Additonal Information Patient seen on 4th floor [facility] for wound VAC placement around 1800. Patient was turned with the assistance of RN on LTVU to L side for wound VAC placement. Removed dressing in place. Wound was cleansed with 1/4 strength dakin's solution and normal saline. Xeroform gauze was applied to periwound partial thickness skin loss. Skin barrier film was applied to periwound and up to R anterior thigh. VAC drape was bridged from wound bed to R thigh. Granufoam was cut in to single strip and was applied in a cinnamon roll fashion to reach undermined areas and bridged up over VAC drape to R anterior thigh. Applied Sensi trac pad to bridged granufoam on R anterior thigh. Covered all exposed granufoam with VAC drape.Stoma paste was applied to seal wound VAC dressing. Wound VAc is suctioning at 125 mm/hg low continuous suction. Romelia Liz [facility] Feb 28, 2018 18:25
[2018-02-28 20:00] VITALS: BP 130/80; PULSE 82; RESP 20; TEMP 97.6
[2018-03-01] MEDS: CHOLESTYRAMINE 4 GM PACKET PEG SCH ×3 (06:00→20:36)
[2018-03-01] MEDS: hydrALAZINE HCL 50 MG TAB PEG SCH ×3 (06:00→20:35)
[2018-03-01] MEDS: NIFEdipine 20 MG CAP PEG SCH ×3 (06:00→20:36)
[2018-03-01] MEDS: traMADol HCL 50 MG TAB PEG SCH ×2 (06:00→18:18)
[2018-03-01] MEDS: FREE WATER PEG SCH ×4 (06:00→18:00)
[2018-03-01 08:00] VITALS: BP 111/68; PULSE 105; RESP 16; TEMP 98.9; O2SAT 99
[2018-03-01] MEDS: ESCITALOPRAM OXALATE 10 MG TAB PEG SCH (08:27)
[2018-03-01] MEDS: SULFAMETHOXAZOLE-TRIMETHOPRIM 800-160 MG/20 ML UDC PEG SCH ×2 (08:27→20:36)
[2018-03-01] MEDS: LANSOPRAZOLE SOLUTAB 30 MG TAB G-TUBE SCH (08:28)
[2018-03-01] MEDS: HEPARIN SODIUM - SQ 10,000 UNITS/ML VIAL SQ SCH ×2 (08:28→20:36)
[2018-03-01] MEDS: METOPROLOL TARTRATE 25 MG TAB PEG SCH ×2 (08:28→20:35)
[2018-03-01] MEDS: LACTOBACILLUS ACIDOPHILUS TAB PEG SCH ×3 (08:28→18:18)
[2018-03-01] MEDS: LACTIC ACID (AMMONIUM LACTATE) 12% LOTION 225 GM BTL TOPICAL SCH ×2 (09:00→20:37)
[2018-03-01] MEDS: HYDROCHLOROTHIAZIDE 25 MG TAB PEG SCH (09:00)
[2018-03-01] MEDS: JUVEN POWDER 1 PACK G-TUBE SCH ×2 (09:00→20:36)
[2018-03-01] MEDS: COLLAGENASE OINT 30 GM TUBE TOPICAL SCH (09:00)
[2018-03-01] MEDS: SODIUM HYPOCHLORITE 0.125% 500 ML BTL TOPICAL SCH (09:00)
--- NOTE | 2018-03-01 11:53 | HHI.PR ---
Subjective Remarks awake, sitting up in chair, watching tv smiles at verbal communication follows my verbal commands by squeezing hands, but not talking Per nursing, no acute issues overnight. Objective Vital Signs Date Time Temp Pulse Resp B/P (MAP) Pulse Ox O2 Delivery O2 Flow Rate FiO2 03/01/18 08:00 98.9 105 16 111/68 (82) 99 02/28/18 20:00 97.6 82 20 130/80 (97) 02/28/18 16:00 98.5 86 16 130/87 (101) 99 02/28/18 12:00 98.6 88 21 135/87 (103) 96 I/O 02/28/18 02/28/18 02/28/18 03/01/18 03/01/18 03/01/18 07:00 15:00 23:00 07:00 15:00 23:00 Intake Total 516 ml 1170 ml 660 ml Output Total 1151 ml 451 ml 2000 ml Balance -635 ml 719 ml -1340 ml IV Total 10 ml Tube Feeding 506 ml 770 ml 460 ml Other 400 ml 200 ml Output Urine Total 1150 ml 450 ml 2000 ml Stool Total 1 ml 1 ml Procedures Peg Tube placed 05/08/17 (Dr. De Los Santos) Objective Remarks awake, follows simple commands, Not in distress. On room air. Heart rate is regular, no murmur appreciated. Lungs are clear. Abdomen is soft and nontender. PEG site is clean. Lower extremities with significant muscle wasting and contracture. A/P Assessment and Plan Impression: Major neurocognitive disorder. Stage IV sacral ulcer. CVA. Hemorrhagic. Dysphagia. On PEG tube feeding. Placed May 09, 2017. Hypertensive emergency. Resolved. Hyperglycemia. On Glucerna for tube feeds. Plan: Patient is awake. Not on trach. Wound care is following regarding her sacral ulcers. Notes from 02/28/18 reviewed - wound vac placed 02/28/18 p.m. To follow up with social media marketing manager and family re placement now that wound vac is placed Nursing staff is taking care of her sacral ulcers and turning her as well. Her blood pressure is stable on current regimen. Continue tube feeding. no diarrhea consult speech therapy- as pt is not talking, and seems that she actually can, maybe her mental status is playing issue with speech- OT at bedside informed me that pt used to talk while she was at [facility] DVT prophylaxis on heparin. Discharge Planning Placement issues. Monique Ham MD Mar 01, 2018 11:53
[2018-03-01 12:00] VITALS: BP 128/72; PULSE 90; RESP 16; TEMP 98.6; O2SAT 98
[2018-03-01] MEDS: FLUCONAZOLE 400 MG PREMIX BAG 200 ML IV SCH (18:18)
[2018-03-01 20:00] VITALS: BP 110/68; PULSE 88; RESP 16; TEMP 98; O2SAT 97
[2018-03-01 20:17] VITALS: O2SAT 97
[2018-03-02] VITALS (7 sets, daily range): BP systolic 99–124; BP diastolic 65–80; PULSE 86–115; RESP 16–20; TEMP 98–100.6; O2SAT 96–100
[2018-03-02] MEDS: FREE WATER PEG SCH ×5 (05:41→23:44)
[2018-03-02] MEDS: CHOLESTYRAMINE 4 GM PACKET PEG SCH ×3 (05:41→20:34)
[2018-03-02] MEDS: NIFEdipine 20 MG CAP PEG SCH ×3 (06:36→20:35)
[2018-03-02] MEDS: hydrALAZINE HCL 50 MG TAB PEG SCH ×3 (06:37→20:35)
[2018-03-02] MEDS: traMADol HCL 50 MG TAB PEG SCH ×2 (06:37→17:33)
[2018-03-02] MEDS: COLLAGENASE OINT 30 GM TUBE TOPICAL SCH (09:00)
[2018-03-02] MEDS: LACTIC ACID (AMMONIUM LACTATE) 12% LOTION 225 GM BTL TOPICAL SCH ×2 (09:00→20:37)
[2018-03-02] MEDS: JUVEN POWDER 1 PACK G-TUBE SCH ×2 (09:00→20:37)
[2018-03-02] MEDS: SODIUM HYPOCHLORITE 0.125% 500 ML BTL TOPICAL SCH (09:00)
[2018-03-02] MEDS: HYDROCHLOROTHIAZIDE 25 MG TAB PEG SCH (09:00)
[2018-03-02] MEDS: LACTOBACILLUS ACIDOPHILUS TAB PEG SCH ×3 (09:51→17:33)
[2018-03-02] MEDS: METOPROLOL TARTRATE 25 MG TAB PEG SCH ×2 (09:51→20:35)
[2018-03-02] MEDS: LANSOPRAZOLE SOLUTAB 30 MG TAB G-TUBE SCH (09:51)
[2018-03-02] MEDS: hydrALAZINE HCL 25 MG TAB PEG PRN (09:51)
[2018-03-02] MEDS: ESCITALOPRAM OXALATE 10 MG TAB PEG SCH (09:51)
[2018-03-02] MEDS: SULFAMETHOXAZOLE-TRIMETHOPRIM 800-160 MG/20 ML UDC PEG SCH ×2 (09:52→20:34)
[2018-03-02] MEDS: HEPARIN SODIUM - SQ 10,000 UNITS/ML VIAL SQ SCH ×2 (09:52→20:34)
--- NOTE | 2018-03-02 17:23 | HHI.PR ---
Subjective Remarks No overnight events, no fever Objective Vitals Vital Signs Date Time Temp Pulse Resp B/P (MAP) Pulse Ox O2 Delivery O2 Flow Rate FiO2 03/02/18 08:00 100.0 115 16 111/71 (84) 100 03/02/18 04:00 98.0 97 16 108/71 (83) 97 03/02/18 00:00 98.0 89 16 108/68 (81) 97 03/01/18 20:17 97 21 03/01/18 20:00 98.0 88 16 110/68 (82) 97 I/O 03/01/18 03/01/18 03/01/18 03/02/18 03/02/18 03/02/18 07:00 15:00 23:00 07:00 15:00 23:00 Intake Total 660 ml 880 ml 933 ml Output Total 2000 ml 1200 ml 900 ml Balance -1340 ml -320 ml 33 ml Tube Feeding 460 ml 480 ml 533 ml Other 200 ml 400 ml 400 ml Output Urine Total 2000 ml 1200 ml 900 ml Objective Remarks GENERAL: Patient lying in bed, appears comfortable. Nods yes/no to questions. CARDIOVASCULAR: Regular rate and rhythm without murmurs, gallops, or rubs. RESPIRATORY: Breath sounds equal bilaterally. No accessory muscle use. GASTROINTESTINAL: Abdomen soft, non-tender, nondistended. PEG tube in place. MUSCULOSKELETAL: No cyanosis, or edema. Awake, aphasic. Still follows some commands, good handgrip, close her eyes on command. Positive for right facial droop. Procedures Peg Tube placed 05/08/17 (Dr. De Los Santos) A/P Problem List: (1) Major neurocognitive disorder ICD Code: F03.90 - Unspecified dementia without behavioral disturbance (2) Hemiparesis ICD Code: G81.90 - Hemiplegia, unspecified affecting unspecified side Status: Acute (3) Intracranial hemorrhage ICD Code: I62.9 - Nontraumatic intracranial hemorrhage, unspecified Status: Chronic (4) Aphasia ICD Code: R47.01 - Aphasia Assessment and Plan 62-year-old female with history of hemorrhagic stroke and resulting neurocognitive decline. Status post hemorrhagic CVA, new acute and subacute stroke with chronic right hemiplegia and aphasia. Questionable new facial droop on 01/10; Brain MRI 01/11 showed acute to subacute left thalamic infarct with mild hemorrhagic component in patient with previous history of relatively large left thalamic CVA Neuro and neurosurgery consulted; no surgical intervention needed. Agreed to pharmacologic prophylaxis Facial droop improved UTI Ctx growing Enterobacter aerogenes. Patient received Levaquin x 14 days (01/03-) Repeat urinalysis showed Yenifer anticoagulates negative staph. Continue Diflucan for 2 weeks. Cruz catheter placed. Pt remains afebrile Vomiting -Changed to feeding tube continuous, awaiting dietary consult, resolved. Stage IV sacral pressure ulcer MRI showing bony edema and marrow replacement concerning for osteomyelitis; ID following, continue Levaquin and Flagyl until February Wound care following, S/P bedside debridement 01/11 History of hemorrhagic CVA Continue PT, OT, and ST Poor prognosis. Patient does not participate well with therapy Palliative care following Dysphagia Due to hemorrhagic stroke Status post PEG placement on 05/09/17, PEG tube out 01/18/2018, consult invasive radiology for PEG tube reinsertion, medically necessary. Continue tube feedings HTN Continue nifedipine 40 mg Q6H, Apresoline 50 mg Q6H, Metoprolol 100 mg BID, HCTZ 25 mg Daily Vasotec IV PRN, Clonidine PRN Hyperglycemia Glucerna for tube feeds Follow blood sugars intermittently Xeroderma on bilateral feet Lac-Hydrin 12% Lotion continued Depression Continue Lexapro 10 mg via PEG daily Nutrition Tube feeds changed to Glucerna 1.5 continuous, bolus feeding with Tyshawn DVT Prophylaxis Heparin (cleared by neurosurgery) No change in management Discharge Planning Patient was homeless prior to admit Poor access for inpatient rehabilitation Family desires aggressive measures for therapy and placement Independent funding unavailable for placement Long-term prognosis is poor No significant capacity for regaining full functionality Palliative care following Very poor prognosis. Patient does not display any meaningful involvement with therapy. Difficult DC. Awaiting placement Nolvia Salomon MD Mar 02, 2018 17:23
[2018-03-02] MEDS: SILVER NITR/POTASSIUM NITRATE APPLICATORS TOPICAL SCH (17:34)
[2018-03-02] MEDS: FLUCONAZOLE 400 MG PREMIX BAG 200 ML IV SCH (17:38)
--- NOTE | 2018-03-02 18:52 | PD.WCN.NOT ---
Neg Pressure Wound Therapy Wound Location Wound Location: coccyx Wound Description Wound bed appearance: ~90% red granulation tissue and ~10% bone Settings Suction: 125 mmHg, Continuous Intensity: Low Other Information: Bridged, Windowpaned, Mushroomed Foam type: Black Number of pieces: 1 Additonal Information Patient seen on 4th floor [facility] for wound VAC dressing change and Silver nitrate treatment of epibole around 1200. Patient was turned with the assistance of LINSEY Nance on LTVU to L side for wound VAC placement. Removed wound VAc dressing in place. Wound was cleansed with 1/4 strength dakin's solution and normal saline.Silver nitrate was applied to epibole wound margins. Xeroform gauze was applied to periwound partial thickness skin loss. Skin barrier film was applied to periwound and up to R anterior thigh. VAC drape was bridged from wound bed to R thigh. Granufoam was cut in to single strip and was applied in a cinnamon roll fashion to reach undermined areas and bridged up over VAC drape to R anterior thigh. Applied Sensi trac pad to bridged granufoam on R anterior thigh. Covered all exposed granufoam with VAC drape.Stoma paste was applied to seal wound VAC dressing. Wound VAc is suctioning at 125 mm/hg low continuous suction. [facility] Mar 02, 2018 18:52
[2018-03-03 03:33] VITALS: BP 123/73; PULSE 97; RESP 16; TEMP 97.3; O2SAT 97
[2018-03-03] MEDS: traMADol HCL 50 MG TAB PEG SCH ×2 (05:16→17:52)
[2018-03-03] MEDS: NIFEdipine 20 MG CAP PEG SCH ×3 (05:16→21:41)
[2018-03-03] MEDS: hydrALAZINE HCL 50 MG TAB PEG SCH ×3 (05:16→21:41)
[2018-03-03] MEDS: CHOLESTYRAMINE 4 GM PACKET PEG SCH ×3 (05:17→21:41)
[2018-03-03] MEDS: FREE WATER PEG SCH ×4 (05:17→23:07)
[2018-03-03 08:00] VITALS: BP 95/67; PULSE 99; RESP 16; TEMP 99.9; O2SAT 99
--- NOTE | 2018-03-03 09:56 | HHI.PR ---
Subjective Remarks No new complaints Has wound VAC in place Discussed with RN Await safe placement Objective Vitals Vital Signs Date Time Temp Pulse Resp B/P (MAP) Pulse Ox O2 Delivery O2 Flow Rate FiO2 03/03/18 08:00 99.9 99 16 95/67 (76) 99 03/03/18 03:33 97.3 97 16 123/73 (90) 97 03/02/18 23:44 100.6 88 16 106/65 (79) 100 03/02/18 19:43 100.6 101 16 124/80 (95) 97 03/02/18 16:00 99.5 86 16 99/74 (82) 97 03/02/18 12:00 100.0 115 20 111/71 (84) 96 I/O 03/02/18 03/02/18 03/02/18 03/03/18 03/03/18 03/03/18 07:00 15:00 23:00 07:00 15:00 23:00 Intake Total 933 ml 880 ml 1201 ml Output Total 900 ml 550 ml 850 ml Balance 33 ml 330 ml 351 ml Tube Feeding 533 ml 480 ml 1001 ml Other 400 ml 400 ml 200 ml Output Urine Total 900 ml 550 ml 850 ml Imaging Last Impressions Head CT 01/20/18 0000 Signed Impressions: Service Date/Time: Sunday, January 21, 2018 16:13 - CONCLUSION: 1. Small area of encephalomalacia with some surrounding hemorrhage in the left basal ganglia most consistent with an area of hemorrhagic infarct. This is stable compared to previous exams. 2. Cortical atrophy and microvascular ischemic demyelinative change. Timmy Dumas MD Chest X-Ray 01/19/18 0000 Signed Impressions: Service Date/Time: Friday, January 19, 2018 17:12 - CONCLUSION: Trace left base atelectasis. Hu Henderson MD Gastrostomy Tube Placement 01/18/18 0000 Signed Impressions: Service Date/Time: January 16:41 - CONCLUSION: Uncomplicated gastrostomy tube replacement through an existing tract. Timmy Dumas MD Brain MRI 01/11/18 0000 Signed Impressions: Service Date/Time: January 08:45 - CONCLUSION: 1. Focal area of restricted diffusion in the left thalmus characteristic of an acute to subacute infarct. 2. GRE images demonstrate subacute hemorrhage associated with the infarct in the left thalamus. 3. GRE images also demonstrate punctate areas of microhemorrhage noted in the deep right mid parietal lobe, right occipital lobe and bilateral basal ganglia regions, left greater than right. 4. Diffuse bilateral cortical atrophy and chronic white matter changes. Luciano Morales MD Abdomen/Pelvis CT 01/09/18 0000 Signed Impressions: Service Date/Time: Tuesday, January 09, 2018 18:48 - CONCLUSION: 1. There is a sacral decubitus wound/ulcer which extends to the sacrum. Prior MRI demonstrated abnormal sacrum in the inferior aspect of the sacrum and coccyx. There is also presacral edema. These findings are highly suspicious for osteomyelitis. 2. Nonacute findings include 3 mm nonobstructing right renal stone and multi-fibroid uterus. Hu Cuenca MD Sacrum/Coccyx MRI 01/06/18 0000 Signed Impressions: Service Date/Time: Saturday, January 06, 2018 08:30 - CONCLUSION: Large decubitus ulcer posteriorly with not only bony edema and marrow replacement concerning for osteomyelitis but it extends to the presacral fat is well where there is marked enhancement and fluid on the T2-weighted sequences. The coccygeal involvement is at least 3.5 cm in length. Eliud Du MD Abdomen X-Ray 12/13/17 0000 Signed Impressions: Service Date/Time: Wednesday, December 13, 2017 14:17 - CONCLUSION: PEG tube in stomach.. Harry Dumas MD FACR Upper Extremity Ultrasound 11/06/17 0000 Signed Impressions: Service Date/Time: Monday, November 06, 2017 14:17 - CONCLUSION: Normal examination. K. Byron Perez MD Pelvis CT 10/13/17 0000 Signed Impressions: Service Date/Time: Friday, October 13, 2017 12:02 - CONCLUSION: 1. Decubitus ulcer with small abscess in the right posterior perineal region measuring 3.1 x 4.6 cm. There is also a small abscess posterior and to the left of the rectum measuring 3.2 x 2.3 cm. Jann Weber MD Neck CTA 04/10/17 0000 Signed Impressions: Service Date/Time: Monday, April 10, 2017 22:28 - CONCLUSION: The internal carotid arteries are normal bilaterally. No significant atherosclerotic disease is noted. Eliud Du MD Head CTA 04/10/17 0000 Signed Impressions: Service Date/Time: Monday, April 10, 2017 22:50 - CONCLUSION: Mild dilatation of the basilar tip without discrete aneurysm. Some narrowing of the left middle cerebral branch after the bifurcation. Prominent left thalamic hemorrhage. lEiud Du MD Objective Remarks GENERAL: Patient lying in bed, appears comfortable -HER VOICE IS very soft- spoken can be heard with my stethoscope only SKIN: Warm and dry. Wound VAC in place HEAD: Atraumatic. Normocephalic. EYES: Pupils equal and round. No scleral icterus. No injection or drainage. ENT: No nasal bleeding or discharge. Mucous membranes pink and moist. NECK: Trachea midline. No JVD. Supple CARDIOVASCULAR: Regular rate and rhythm. S1 and S2 no S3 or S4 RESPIRATORY: No accessory muscle use. Clear to auscultation. Breath sounds equal bilaterally. GASTROINTESTINAL: Abdomen soft, non-tender, nondistended. Hepatic and splenic margins not palpable. PEG tube in place--Cruz catheter in place MUSCULOSKELETAL: Extremities without clubbing, cyanosis, or edema. No obvious deformities. 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 No obvious cranial nerve deficits. Normal speech but very very soft. PSYCHIATRIC: INAppropriate mood and affect; insight and judgment ABnormal. Procedures Peg Tube placed 05/08/17 (Dr. De Los Santos) Medications and IVs Current Medications Sodium Chloride (NS Flush) 2 ml UNSCH PRN IVF FLUSH AFTER USING IV ACCESS; Start 04/10/17 at 20:00; Stop 04/10/17 at 22:12; Status DC Nicardipine HCl 25 mg/Sodium Chloride 260 ml @ 0 mls/hr TITRATE IV Last administered on 04/10/17 21:34; Start 04/10/17 at 20:00; Stop 04/10/17 at 22:12; Status DC Sodium Chloride 1,000 ml @ 84 mls/hr [id number] IV Last administered on 04/11/17 07:47; Start 04/10/17 at 22:00; Stop 04/11/17 at 15:41; Status DC Sodium Chloride (NS Flush) 2 ml UNSCH PRN .XX FLUSH AFTER USING IV ACCESS Last administered on 05/01/17 04:49; Start 04/10/17 at 22:00; Stop 05/26/17 at 10:07 ; Status DC Sodium Chloride (NS Flush) 2 ml BID .XX Last administered on 05/26/17 09:54; Start 04/11/17 at 09:00; Stop 05/26/17 at 10:07; Status DC Acetaminophen (Tylenol) 650 mg Q6H PRN PO PAIN 1-10 AND/OR FEVER >101F Last administered on 04/26/17 13:46; Start 04/10/17 at 22:00; Stop 06/16/17 at 10:03 ; Status DC Morphine Sulfate (Morphine Inj) 2 mg Q2H PRN IV PAIN SCALE 6 TO 10 Last administered on 05/25/17 21:09; Start 04/10/17 at 22:00; Stop 05/26/17 at 10:07 ; Status DC Famotidine (Pepcid Inj) 20 mg Q12HR IV PUSH Last administered on 05/04/17 08: 37; Start 04/11/17 at 09:00; Stop 05/04/17 at 14:13; Status DC Ondansetron HCl (Zofran Inj) 4 mg Q6H PRN IV NAUSEA OR VOMITING; Start 04/10/17 at 22:00; Stop 05/26/17 at 10:07; Status DC Metoclopramide HCl (Reglan Inj) 10 mg Q6H PRN IV NAUSEA OR VOMITING; Start 04/10 at 22:00; Stop 05/26/17 at 10:07; Status DC Prochlorperazine (Compazine Supp) 25 mg Q12H PRN RECTAL NAUSEA OR VOMITING; Start 04/10/17 at 22:00; Stop 05/26/17 at 10:07; Status DC Albuterol/ Ipratropium (Duoneb Neb) 1 ampule Q2HR NEB PRN INH WHEEZING; Start 04/10/17 at 22:00; Stop 05/26/17 at 10:07; Status DC Miscellaneous Information 1 [id number] XX Last administered on 04/10/17 22:00; Start 04/10/17 at 22:00; Stop 05/26/17 at 10:07; Status DC Chlorhexidine Gluconate (Chlorhexidine 2% Cloth) Taper DAILY@04 TOP Last administered on 05/21/17 04:00; Start 04/11/17 at 04:00; Stop 05/26/17 at 10:07 ; Status DC Chlorhexidine Gluconate (Chlorhexidine 2% Cloth) 3 pack UNSCH PRN TOP HYGIENIC CARE; Start 04/10/17 at 22:00; Stop 05/26/17 at 10:07; Status DC Senna/Docusate Sodium (Evelyn-Colace) 1 tab BID PO Last administered on 09:20; Start 04/11/17 at 09:00; Stop 06/16/17 at 10:03; Status DC Magnesium Hydroxide (Milk Of Magnesia Liq) 30 ml Q12H PRN PO MILD - MODERATE CONSTIPATION; Start 04/10/17 at 22:00; Stop 05/26/17 at 10:07; Status DC Sennosides (Senokot) 17.2 mg Q12H PRN PO MODERATE - SEVERE CONSTIPATION Last administered on 05/08/17 21:29; Start 04/10/17 at 22:00; Stop 05/26/17 at 10:07; Status DC Bisacodyl (Dulcolax Supp) 10 mg DAILY PRN RECTAL SEVERE CONSITIPATION; Start at 22:00 Lactulose (Lactulose Liq) 30 ml DAILY PRN PO SEVERE CONSITIPATION Last administered on 04/24/17 08:44; Start 04/10/17 at 22:00; Stop 06/16/17 at 10:03 ; Status DC Nicardipine HCl 25 mg/Sodium Chloride 260 ml @ 0 mls/hr TITRATE IV Last administered on 04/14/17 04:35; Start 04/10/17 at 22:15; Stop 04/14/17 at 12:18; Status DC Iohexol (Omnipaque 350 Inj) 70 ml STK-MED ONCE IV Last administered on 22:35; Start 04/10/17 at 22:35; Stop 04/10/17 at 22:36; Status DC Labetalol HCl (Trandate Inj) 20 mg Q4H PRN IV PUSH sbp>160 Last administered on 04/17/17 02:24; Start 04/12/17 at 08:15; Stop 04/25/17 at 18:06; Status DC Hydralazine HCl (Apresoline Inj) 20 mg Q4H PRN IV PUSH sbp>150 Last administered on 05/17/17 20:39; Start 04/12/17 at 08:15; Stop 05/18/17 at 14:44 ; Status DC Amlodipine Besylate (Norvasc) 5 mg DAILY PO Last administered on 04/14/17 08:55 ; Start 04/12/17 at 09:00; Stop 04/15/17 at 06:44; Status DC Metoclopramide HCl (Reglan Inj) 5 mg Q8HR IV PUSH Last administered on 14:02; Start 04/12/17 at 16:00; Stop 05/04/17 at 14:13; Status DC Potassium Chloride 100 ml @ 50 mls/hr Q2H PRN IV For Potassium 2.8 - 3.2 mEq/L ; Start 04/13/17 at 11:45; Stop 04/25/17 at 11:32; Status DC Potassium Chloride 100 ml @ 50 mls/hr Q2H PRN IV For Potassium 2.8 - 3.2 mEq/ L Last administered on 04/14/17 13:06; Start 04/13/17 at 11:45; Stop 04/25/17 at 11:32; Status DC Potassium Bicarb/ Potassium Chloride (K-Lyte Cl Eff) 50 meq UNSCH PRN PO For Potassium 3.3 - 3.5 mEq/L Last administered on 04/19/17 14:03; Start 04/13/17 at 11:45; Stop 04/25/17 at 11:32; Status DC Potassium Chloride 100 ml @ 25 mls/hr UNSCH PRN IV For Potassium 3.3 - 3.5 mEq /L; Start 04/13/17 at 11:45; Stop 04/25/17 at 11:32; Status DC Potassium Chloride 100 ml @ 50 mls/hr Q2H PRN IV For Potassium 3.3 - 3.5 mEq/L ; Start 04/13/17 at 11:45; Stop 04/25/17 at 11:32; Status DC Magnesium Sulfate 4 gm/Sodium Chloride 100 ml @ 50 mls/hr UNSCH PRN IV For Magnesium 0.9 - 1.1 mg/dL; Start 04/13/17 at 11:45; Stop 04/25/17 at 11:32; Status DC Magnesium Oxide (Mag-Ox) 800 mg UNSCH PRN PO For Magnesium 1.2 - 1.6 mg/dL; Start 04/13/17 at 11:45; Stop 04/25/17 at 11:32; Status DC Magnesium Sulfate 2 gm/Sodium Chloride 100 ml @ 50 mls/hr UNSCH PRN IV For Magnesium 1.2 - 1.6 mg/dL; Start 04/13/17 at 11:45; Stop 04/25/17 at 11:32; Status DC Potassium Phosphate (K-Phos) 2,000 mg Q4H PRN PO For Phosphorus < 2.5 mg/dL; Start 04/13/17 at 11:45; Stop 04/25/17 at 11:32; Status DC Sodium Phosphate 30 mmol/Sodium Chloride 250 ml @ 42 mls/hr UNSCH PRN IV For Phosphorus < 2.5 mg/dL; Start 04/13/17 at 11:45; Stop 04/25/17 at 11:32; Status DC Potassium Phosphate (K-Phos) 2,000 mg UNSCH PRN PO/TUBE SEE LABEL COMMENTS; Start 04/13/17 at 11:45; Stop 04/25/17 at 11:32; Status DC Potassium Phosphate 30 mmol/ Sodium Chloride 260 ml @ 42 mls/hr UNSCH PRN IV SEE LABEL COMMENTS; Start 04/13/17 at 11:45; Stop 04/25/17 at 11:32; Status DC Metoprolol Tartrate (Lopressor) 25 mg Q8HR PO Last administered on 04/14/17 05: 40; Start 04/13/17 at 14:00; Stop 04/14/17 at 12:18; Status DC Hydralazine HCl (Apresoline) 50 mg Q8H PO Last administered on 04/14/17 03:23; Start 04/13/17 at 12:00; Stop 04/14/17 at 09:23; Status DC Hydralazine HCl (Apresoline) 100 mg Q8H PO Last administered on 04/14/17 11:25 ; Start 04/14/17 at 12:00; Stop 04/14/17 at 19:47; Status DC Metoprolol Tartrate (Lopressor) 50 mg Q8HR PO Last administered on 04/24/17 05 :27; Start 04/14/17 at 14:00; Stop 04/24/17 at 09:28; Status DC Hydralazine HCl (Apresoline Inj) 20 mg ONCE ONCE IV PUSH Last administered on 04/14/17 17:42; Start 04/14/17 at 17:15; Stop 04/14/17 at 17:32; Status DC Labetalol HCl (Trandate Inj) 10 mg ONCE ONCE IV PUSH Last administered on 17:42; Start 04/14/17 at 17:15; Stop 04/14/17 at 17:32; Status DC Clonidine (Catapres) 0.3 mg ONCE ONCE PO Last administered on 04/14/17 17:50; Start 04/14/17 at 17:15; Stop 04/14/17 at 17:32; Status DC Clonidine (Catapres) 0.2 mg Q8HR PO ; Start 04/14/17 at 22:00; Stop 04/14/17 at 22 :00; Status DC Clonidine (Catapres) 0.3 mg Q8HR PO Last administered on 04/26/17 05:55; Start 04/14/17 at 22:00; Stop 04/26/17 at 14:39; Status DC Hydralazine HCl (Apresoline) 100 mg Q6HR PO Last administered on 04/15/17 10: 39; Start 04/15/17 at 00:00; Stop 04/15/17 at 13:10; Status DC Amlodipine Besylate (Norvasc) 10 mg DAILY PO Last administered on 06/12/17 07: 39; Start 04/14/17 at 19:45; Stop 06/12/17 at 07:56; Status DC Enalaprilat (Vasotec Inj) 1.25 mg Q6H PRN IV PUSH SBP>160, DBP>90 Last administered on 05/13/17 01:22; Start 04/15/17 at 01:15; Stop 05/26/17 at 10:07 ; Status DC Nitroglycerin (Nitroglycerin 2% Oint) 2 inch Q6HR PRN TOPICAL SBP>160, DBP>90 Last administered on 04/16/17 12:34; Start 04/15/17 at 06:00; Stop 05/26/17 at 10:07; Status DC Hydralazine HCl (Apresoline) 100 mg Q8HR PO Last administered on 04/26/17 05: 55; Start 04/15/17 at 14:00; Stop 04/26/17 at 14:39; Status DC Lisinopril (Prinivil) 20 mg DAILY PO Last administered on 04/16/17 08:32; Start 04/15/17 at 13:30; Stop 04/16/17 at 14:58; Status DC Lisinopril (Prinivil) 20 mg ONCE ONCE PO Last administered on 04/16/17 15:27 ; Start 04/16/17 at 15:00; Stop 04/16/17 at 15:03; Status DC Lisinopril (Prinivil) 40 mg BID PO Last administered on 04/20/17 09:09; Start 04/16/17 at 21:00; Stop 04/20/17 at 16:42; Status DC Hydrochlorothiazide (Hydrodiuril) 25 mg DAILY PO Last administered on 08:59; Start 04/17/17 at 17:45; Stop 04/18/17 at 16:28; Status DC Hydrochlorothiazide (Hydrodiuril) 25 mg ONCE ONCE PO Last administered on 04/18 16:51; Start 04/18/17 at 16:30; Stop 04/18/17 at 16:32; Status DC Hydrochlorothiazide (Hydrodiuril) 50 mg DAILY PO Last administered on 08:50; Start 04/19/17 at 09:00; Stop 04/25/17 at 18:06; Status DC Lisinopril (Prinivil) 30 mg BID PO Last administered on 04/25/17 08:50; Start 04/20/17 at 21:00; Stop 04/25/17 at 18:06; Status DC Miscellaneous (Pill Splitter) 1 ea UNSCH PRN OTHER SEE LABEL COMMENTS; Start at 17:15; Stop 10/18/17 at 09:37; Status DC Ceftriaxone Sodium 1000 mg/ Sodium Chloride 100 ml @ 200 mls/hr HS IV Last administered on 04/29/17 22:04; Start 04/22/17 at 21:30; Stop 04/30/17 at 12:37 ; Status DC Metoprolol Tartrate (Lopressor) 50 mg BID PO Last administered on 05/26/17 09: 54; Start 04/24/17 at 21:00; Stop 05/26/17 at 10:12; Status DC Lisinopril (Prinivil) 20 mg DAILY PO Last administered on 04/27/17 09:52; Start 04/26/17 at 09:00; Stop 04/28/17 at 00:21; Status DC Clonidine (Catapres) 0.2 mg Q8HR PO Last administered on 05/26/17 05:57; Start 04/26/17 at 22:00; Stop 05/26/17 at 10:12; Status DC Hydralazine HCl (Apresoline) 50 mg Q8HR PO Last administered on 04/27/17 12:45 ; Start 04/26/17 at 22:00; Stop 04/27/17 at 15:31; Status DC Hydralazine HCl (Apresoline) 100 mg Q8HR PO Last administered on 06/10/17 06:18 ; Start 04/27/17 at 22:00; Stop 06/10/17 at 12:03; Status DC Lisinopril (Prinivil) 40 mg DAILY PO Last administered on 06/16/17 09:20; Start 04/28/17 at 09:00; Stop 06/16/17 at 10:03; Status DC Famotidine (Pepcid) 20 mg BID NG Last administered on 05/09/17 09:36; Start at 21:00; Stop 05/09/17 at 12:49; Status DC Lactic Acid (Lac-Hydrin 12% Lotion) 1 applic BID TOPICAL Last administered on at 20:37; Start 05/04/17 at 14:00 Cefazolin Sodium 1000 mg/Sodium Chloride 100 ml @ 200 mls/hr PROTOTYPE ENGINEER IV ; Start 05/06/17 at 10:30; Stop 05/09/17 at 10:29; Status DC Cefazolin Sodium (Ancef Inj) 1,000 mg STK-MED ONCE IV Last administered on 15:00; Start 05/08/17 at 15:00; Stop 05/08/17 at 15:08; Status DC Propofol (Diprivan 200 Mg/20 ml Inj) 150 mg STK-MED ONCE IV PUSH ; Start at 15:27; Stop 05/08/17 at 15:45; Status DC Lansoprazole (Prevacid Odt) 30 mg DAILY G-TUBE Last administered on 03/02/18 09:51; Start 05/10/17 at 09:00 Nystatin (Mycostatin Liq) 5 ml QID SWISH-SWAL Last administered on 05/22/17 09:36; Start 05/14/17 at 13:00; Stop 05/22/17 at 11:19; Status DC Hydralazine HCl (Apresoline) 25 mg Q4HR PRN PEG for sbp greater than 150 Last administered on 03/02/18 09:51; Start 05/18/17 at 14:45 Clonidine (Catapres) 0.1 mg Q6H PRN PO for SBP greater than 170 Last administered on 05/22/17 02:48; Start 05/21/17 at 07:30; Stop 05/26/17 at 10:12 ; Status DC Nystatin (Mycostatin Liq) 5 ml QID SWISH-SWAL Last administered on 05/28/17 09:43; Start 05/23/17 at 13:00; Stop 05/28/17 at 10:02; Status DC Ondansetron HCl (Zofran Liq) 4 mg Q6H PRN PEG NAUSEA OR VOMITING Last administered on 02/09/18 09:37; Start 05/26/17 at 10:00 Metoprolol Tartrate (Lopressor) 75 mg BID PO Last administered on 05/28/17 09: 43; Start 05/26/17 at 21:00; Stop 05/28/17 at 09:58; Status DC Clonidine (Catapres-Tts 0.2 Mg Patch.7d) 1 patch Q7D T-DERMAL Last administered on 06/02/17 11:27; Start 05/26/17 at 12:00; Stop 06/06/17 at 12:47 ; Status DC Miscellaneous Information 1 Q7D T-DERMAL Last administered on 06/02/17 11:28; Start 06/02/17 at 12:00; Stop 06/06/17 at 13:31; Status DC Metoprolol Tartrate (Lopressor) 100 mg BID PO Last administered on 06/16/17 09 :20; Start 05/28/17 at 21:00; Stop 06/16/17 at 10:03; Status DC Fluconazole (Diflucan) 200 mg DAILY PO Last administered on 06/03/17 08:44; Start 05/28/17 at 11:00; Stop 06/04/17 at 08:59; Status DC Levofloxacin (Levaquin Liq) 750 mg Q24H PEG ; Start 05/29/17 at 11:00; Stop at 15:05; Status DC Levofloxacin (Levaquin Liq) 750 mg DAILY@16 PEG Last administered on 16:20; Start 05/29/17 at 16:00; Stop 06/04/17 at 16:01; Status DC Sodium Chloride 500 ml @ 500 mls/hr BOLUS ONCE IV Last administered on 15:43; Start 06/01/17 at 11:30; Stop 06/01/17 at 12:29; Status DC Sodium Chloride 1,000 ml @ 100 mls/hr Q10H IV Last administered on 06/03/17 06:17; Start 06/02/17 at 11:15; Stop 06/03/17 at 10:16; Status DC Clonidine (Catapres-Tts 0.3 Mg Patch.7d) 1 patch Q7D T-DERMAL Last administered on 12/19/17 17:32; Start 06/06/17 at 15:00; Stop 12/24/17 at 09:54 ; Status DC Miscellaneous Information 1 Q7D T-DERMAL Last administered on 12/19/17 15:00; Start 06/06/17 at 15:00; Stop 12/24/17 at 09:54; Status DC Hydralazine HCl (Apresoline) 100 mg Q6HR PO Last administered on 06/16/17 06: 20; Start 06/10/17 at 18:00; Stop 06/16/17 at 10:03; Status DC Nifedipine (Procardia Xl) 60 mg DAILY PO Last administered on 06/15/17 10:04; Start 06/12/17 at 09:00; Stop 06/16/17 at 10:03; Status DC Acetaminophen (Tylenol) 650 mg Q6H PRN PEG PAIN 1-10 AND/OR FEVER >101F Last administered on 10/17/17 19:29; Start 06/16/17 at 16:00; Status Future Hold Senna/Docusate Sodium (Evelyn-Colace) 1 tab BID PEG Last administered on 09:42; Start 06/16/17 at 21:00; Stop 06/28/17 at 10:38; Status DC Hydralazine HCl (Apresoline) 100 mg Q6HR PEG Last administered on 08/17/17 22 :43; Start 06/16/17 at 12:00; Stop 08/18/17 at 07:50; Status DC Lactulose (Lactulose Liq) 30 ml DAILY PRN PEG SEVERE CONSITIPATION; Start 06/16 at 10:00; Stop 08/17/17 at 08:28; Status DC Lisinopril (Prinivil) 40 mg DAILY PEG Last administered on 08/16/17 08:04; Start 06/17/17 at 09:00; Stop 08/18/17 at 07:50; Status DC Metoprolol Tartrate (Lopressor) 100 mg BID PEG Last administered on 11/21/17at 21:41; Start 06/16/17 at 21:00; Stop 11/23/17 at 11:24; Status DC Nifedipine (Procardia) 20 mg Q8HR PEG Last administered on 06/20/17 05:41; Start 06/16/17 at 14:00; Stop 06/20/17 at 14:35; Status DC Nifedipine (Procardia) 30 mg Q8HR .XX Last administered on 06/22/17 13:13; Start 06/20/17 at 22:00; Stop 06/22/17 at 13:14; Status DC Nifedipine (Procardia) 30 mg Q6HR .XX Last administered on 06/26/17 06:32; Start 06/22/17 at 18:00; Stop 06/26/17 at 11:22; Status DC Nifedipine (Procardia) 40 mg Q6HR PEG Last administered on 12/17/17at 11:55; Start 06/26/17 at 12:00; Stop 12/17/17 at 18:00; Status DC Sennosides (Senna Liq) 8.8 mg DAILY PEG Last administered on 10/17/17 10:02 ; Start 06/29/17 at 09:00; Status Future Hold Hydrochlorothiazide (Hydrodiuril) 25 mg DAILY PO Last administered on 07/07/17 08:49; Start 07/01/17 at 12:00; Stop 07/07/17 at 11:21; Status DC Hydrochlorothiazide (Hydrodiuril) 25 mg BID@ PEG Last administered on 07/21 17:17; Start 07/07/17 at 18:00; Stop 07/28/17 at 15:04; Status DC Potassium Bicarb/ Potassium Chloride (K-Lyte Cl Eff) 25 meq DAILY PEG Last administered on 07/22/17 09:54; Start 07/07/17 at 11:30; Stop 07/28/17 at 15:04 ; Status DC Hydrochlorothiazide (Hydrodiuril) 25 mg DAILY PO Last administered on 08:04; Start 08/04/17 at 12:30; Stop 08/18/17 at 07:50; Status DC Nystatin (Mycostatin Liq) 5 ml QID OTHER Last administered on 08/21/17 17:54 ; Start 08/13/17 at 18:00; Stop 08/21/17 at 18:00; Status DC Polyethylene Glycol (Miralax) 17 gm DAILY PRN PO severe constipation Last administered on 08/30/17 23:22; Start 08/17/17 at 08:30; Stop 12/09/17 at 09: 10; Status DC Hydralazine HCl (Apresoline) 100 mg Q8HR PEG Last administered on 08/19/17 06 :38; Start 08/18/17 at 14:00; Stop 08/19/17 at 07:53; Status DC Lisinopril (Prinivil) 20 mg BID PEG ; Start 08/18/17 at 09:00; Stop 08/19/17 at 07:53; Status DC Hydralazine HCl (Apresoline) 50 mg Q6HR PEG Last administered on 12/10/17at 23:28 ; Start 08/19/17 at 12:00; Stop 12/11/17 at 04:19; Status DC Lisinopril (Prinivil) 10 mg BID PEG Last administered on 11/15/17 08:28; Start 08/19/17 at 09:00; Stop 11/15/17 at 10:41; Status DC Hydrochlorothiazide (Hydrodiuril) 25 mg DAILY PO Last administered on 17:12; Start 08/20/17 at 15:00; Stop 08/21/17 at 08:35; Status DC Nystatin (Mycostatin Liq) 5 ml QID OTHER Last administered on 09/02/17 21:12 ; Start 08/23/17 at 18:00; Stop 09/03/17 at 09:51; Status DC Hydrochlorothiazide (Hydrodiuril) 25 mg DAILY PO Last administered on 10:34; Start 08/29/17 at 11:15; Stop 09/03/17 at 09:51; Status DC Hydrochlorothiazide (Microzide) 12.5 mg DAILY PO Last administered on 09:03; Start 09/04/17 at 09:00; Stop 09/04/17 at 13:23; Status DC Nystatin (Mycostatin Liq) 5 ml QID SWISH-SWAL Last administered on 10/17/17 14:28; Start 09/07/17 at 13:00; Stop 10/17/17 at 15:32; Status DC Hydrochlorothiazide (Microzide) 12.5 mg DAILY PO Last administered on 08:12; Start 09/15/17 at 11:45; Stop 09/27/17 at 09:00; Status DC Hydrochlorothiazide (Hydrodiuril) 25 mg DAILY PO Last administered on 10:27; Start 09/27/17 at 09:15; Stop 01/19/18 at 09:03; Status DC Vancomycin HCl 1000 mg/Sodium Chloride 250 ml @ 250 mls/hr ONCE ONCE IV Last administered on 10/10/17 11:28; Start 10/10/17 at 10:00; Stop 10/10/17 at 10:59 ; Status DC Pharmacy Profile Note 0 ml @ 0 mls/hr UNSCH OTHER ; Start 10/10/17 at 09:00; Stop 10/17/17 at 15:26; Status DC Potassium Bicarb/ Potassium Chloride (K-Lyte Cl Eff) 50 meq ONCE ONCE PEG Last administered on 10/10/17 10:14; Start 10/10/17 at 09:30; Stop 10/10/17 at 09:31; Status DC Vancomycin HCl 1250 mg/Sodium Chloride 262.5 ml @ 250 mls/hr Q12H IV Last administered on 10/11/17 18:08; Start 10/10/17 at 18:00; Stop 10/11/17 at 21:55 ; Status DC Miscellaneous Information SPECIFIC LAB TO BE DRAWN:VANCO TROUGH DATE TO BE .Lanre ONCE ONCE .XX Last administered on 10/11/17 17:20; Start 10/11/17 at 17 :45; Stop 10/11/17 at 17:46; Status DC Piperacillin Sod/ Tazobactam Sod 50 ml @ 100 mls/hr Q6HR IV ; Start 10/10/17 at 12:00; Stop 10/10/17 at 14:07; Status DC Piperacillin Sod/ Tazobactam Sod 50 ml @ 100 mls/hr Q6HR IV Last administered on 10/22/17 05:38; Start 10/10/17 at 15:00; Stop 10/22/17 at 08:29; Status DC Vancomycin HCl 1000 mg/Sodium Chloride 250 ml @ 250 mls/hr Q12H IV Last administered on 10/14/17 06:03; Start 10/12/17 at 06:00; Stop 10/14/17 at 13:01 ; Status DC Miscellaneous Information SPECIFIC LAB TO BE BEKA... ONCE ONCE .XX Last administered on 10/14/17 05:45; Start 10/14/17 at 05:45; Stop 10/14/17 at 05:46 ; Status DC Collagenase (Santyl Oint) 1 applic BID TOPICAL Last administered on 10/18/17 21:00; Start 10/12/17 at 09:00; Stop 10/19/17 at 08:47; Status DC Potassium Chloride/Sodium Chloride 1,000 ml @ 100 mls/hr Q10H IV Last administered on 10/16/17 20:57; Start 10/13/17 at 09:00; Stop 10/17/17 at 04: 36; Status DC Fluconazole/ Sodium Chloride 100 ml @ 100 mls/hr Q24H IV Last administered on 10/15/17 12:49; Start 10/13/17 at 12:00; Stop 10/16/17 at 07:19; Status DC Iohexol (Omnipaque 350 Inj) 85 ml STK-MED ONCE IVCONTRAST Last administered on 10/13/17 12:29; Start 10/13/17 at 12:29; Stop 10/13/17 at 12:30; Status DC Potassium Chloride 100 ml @ 50 mls/hr Q2H IV Last administered on 10/14/17 12 :51; Start 10/14/17 at 08:30; Stop 10/14/17 at 12:29; Status DC Potassium Bicarb/ Potassium Chloride (K-Lyte Cl Eff) 50 meq ONCE ONCE PEG Last administered on 10/14/17 10:48; Start 10/14/17 at 08:15; Stop 10/14/17 at 08:17; Status DC Vancomycin HCl 1250 mg/Sodium Chloride 262.5 ml @ 250 mls/hr Q12H IV Last administered on 10/14/17 18:20; Start 10/14/17 at 18:00; Stop 10/15/17 at 09: 15; Status DC Miscellaneous Information SPECIFIC LAB TO BE DRAWN:VANCO TROUGH DATE TO BE DR... ONCE ONCE .XX ; Start 10/16/17 at 05:45; Stop 10/16/17 at 05:46; Status Cancel Potassium Bicarb/ Potassium Chloride (K-Lyte Cl Eff) 50 meq ONCE ONCE PO Last administered on 10/15/17 11:45; Start 10/15/17 at 10:00; Stop 10/15/17 at 10:01; Status DC Vancomycin HCl 1250 mg/Sodium Chloride 262.5 ml @ 250 mls/hr Q12H IV Last administered on 10/17/17 10:01; Start 10/15/17 at 10:00; Stop 10/17/17 at 15 :26; Status DC Miscellaneous Information SPECIFIC LAB TO BE DRAWN:VANCOMYCIN TROUGH DATE TO... ONCE ONCE .XX Last administered on 10/16/17 21:45; Start 10/16/17 at 21:45 ; Stop 10/16/17 at 21:46; Status DC Ciprofloxacin (Cipro) 500 mg Q12HR PEG Last administered on 10/18/17 21:00; Start 10/16/17 at 09:00; Stop 10/19/17 at 09:14; Status DC Potassium Chloride/Sodium Chloride 1,000 ml @ 100 mls/hr Q10H IV Last administered on 10/17/17 10:02; Start 10/17/17 at 08:00; Stop 10/17/17 at 18 :32; Status DC Hydromorphone HCl (Dilaudid Pf Inj) 2 mg ONCE ONCE IV PUSH Last administered on 10/17/17 12:50; Start 10/17/17 at 12:15; Stop 10/17/17 at 12:16; Status DC Sodium Hypochlorite (Dakin'S 0.5% Soln) 500 ml ONCE ONCE TOPICAL Last administered on 10/17/17 14:28; Start 10/17/17 at 13:30; Stop 10/17/17 at 13 :35; Status DC Sodium Hypochlorite (Dakin'S 0.25% Soln) 50 ml BID TOPICAL Last administered on 10/18/17 21:00; Start 10/17/17 at 21:00; Stop 10/19/17 at 08:47; Status DC Morphine Sulfate (Morphine Inj) 2 mg BID PRN IV PUSH painful dressing changes Last administered on 10/20/17 09:23; Start 10/17/17 at 15:00; Stop 10/20/17 at 16:23; Status DC Benztropine Mesylate (Cogentin Inj) 0.5 mg HS IV PUSH ; Start 10/17/17 at 21:00 ; Stop 10/17/17 at 21:00; Status DC Naloxone HCl (Narcan Inj) 0.4 mg UNSCH X1 PRN IV PUSH RESP DEPRESSION OR HYPOTENSION; Start 10/17/17 at 17:30; Stop 10/20/17 at 17:29; Status DC Baclofen (Lioresal) 5 mg ONCE ONCE PO Last administered on 10/17/17 17:45; Start 10/17/17 at 17:45; Stop 10/17/17 at 17:46; Status DC Miscellaneous (Pill Splitter) 1 ea UNSCH PRN OTHER SEE LABEL COMMENTS Last administered on 12/08/17at 20:45; Start 10/17/17 at 17:45 Sodium Chloride 1,000 ml @ 42 mls/hr [id number] IV Last administered on 06:00; Start 10/18/17 at 10:00; Stop 10/24/17 at 15:36; Status DC Collagenase (Santyl Oint) 1 applic BID TOPICAL Last administered on 11/14/17at 07 :57; Start 10/19/17 at 10:00; Stop 11/17/17 at 09:01; Status DC Water (Free Water) 150 ml Q6HR G-TUBE Last administered on 02/07/18 00:18; Start 10/19/17 at 12:00; Stop 02/07/18 at 02:43; Status DC Morphine Sulfate (Morphine Inj) 2 mg BID PRN IV PUSH painful dressing changes Last administered on 10/22/17 09:40; Start 10/20/17 at 16:30; Stop 10/23/17 at 17:45; Status DC Sodium Chloride 500 ml @ 50 mls/hr Q10H IV ; Start 10/20/17 at 17:30; Stop at 17:56; Status DC Sodium Chloride 500 ml @ 1,000 mls/hr BOLUS ONCE IV Last administered on 18:00; Start 10/20/17 at 18:00; Stop 10/20/17 at 18:29; Status DC Diphenhydramine HCl (Benadryl Liq) 50 mg ONCE ONCE PO Last administered on 01:05; Start 10/22/17 at 00:15; Stop 10/22/17 at 00:18; Status DC Piperacillin Sod/ Tazobactam Sod 3.375 gm/Sodium Chloride 100 ml @ 100 mls/hr Q6HR IV Last administered on 10/23/17 17:24; Start 10/22/17 at 12:00; Stop 10/23/17 at 17:45; Status DC Diphenhydramine HCl (Benadryl Inj) 25 mg ONCE ONCE IM Last administered on 17:54; Start 10/23/17 at 17:15; Stop 10/23/17 at 17:40; Status DC Potassium Bicarb/ Potassium Chloride (K-Lyte Cl Eff) 25 meq ONCE ONCE PO ; Start 10/23/17 at 17:45; Stop 10/23/17 at 17:57; Status DC Cefepime HCl 1000 mg/Sodium Chloride 100 ml @ 200 mls/hr Q12H IV Last administered on 11/10/17 09:06; Start 10/23/17 at 20:00; Stop 11/10/17 at 19:59 ; Status DC Levofloxacin/ Dextrose 100 ml @ 100 mls/hr Q24H IV Last administered on 17:56; Start 10/24/17 at 18:00; Stop 11/10/17 at 17:59; Status DC Ketorolac Tromethamine (Toradol Inj) 15 mg DAILY IV PUSH Last administered on 10/28/17 13:45; Start 10/24/17 at 09:00; Stop 10/29/17 at 08:59; Status DC Prednisone (predniSONE LIQ) 10 mg BID PO ; Start 10/23/17 at 21:00; Stop 10/23 at 21:51; Status DC Potassium Bicarb/ Potassium Chloride (K-Lyte Cl Eff) 25 meq ONCE ONCE PEG Last administered on 10/23/17 18:02; Start 10/23/17 at 18:00; Stop 10/23/17 at 18:01; Status DC Prednisone (predniSONE LIQ) 10 mg BID G-TUBE Last administered on 10/24/17 09 :34; Start 10/24/17 at 09:00; Stop 10/24/17 at 15:36; Status DC Potassium Chloride/Sodium Chloride 1,000 ml @ 42 mls/hr [id number] IV Last administered on 10/25/17 11:37; Start 10/24/17 at 16:00; Stop 10/25/17 at 13 :32; Status DC Lisinopril (Prinivil) 10 mg BID PEG Last administered on 11/21/17at 21:41; Start 11/15/17 at 21:00; Stop 11/22/17 at 08:58; Status DC Sodium Chloride (NS Flush) 2 ml UNSCH PRN IV FLUSH FLUSH AFTER USING IV ACCESS Last administered on 01/04/18 08:21; Start 11/17/17 at 10:15; Stop 01/19/18 at 09:03; Status DC Lisinopril (Prinivil) 5 mg BID PEG ; Start 11/22/17 at 09:15; Stop 11/23/17 at 11:24; Status DC Metoprolol Tartrate (Lopressor) 50 mg BID PEG Last administered on 11/23/17at 20 :50; Start 11/23/17 at 21:00; Stop 11/24/17 at 12:59; Status DC Metoprolol Tartrate (Lopressor) 25 mg BID PEG Last administered on 03/02/18at 20 :35; Start 11/24/17 at 21:00 Ceftriaxone Sodium 1000 mg/ Sodium Chloride 100 ml @ 200 mls/hr Q24H IV Last administered on 12/24/17at 08:43; Start 12/09/17 at 09:00; Stop 12/24/17 at 09:54 ; Status DC Polyethylene Glycol (Miralax) 17 gm DAILY PO Last administered on 12/14/17at 09: 08; Start 12/09/17 at 09:15; Stop 12/16/17 at 17:49; Status DC Hydralazine HCl (Apresoline) 50 mg Q6HR PEG Last administered on 12/12/17at 17:41 ; Start 12/11/17 at 06:00; Stop 12/12/17 at 19:14; Status DC Hydralazine HCl (Apresoline) 50 mg Q8HR PEG Last administered on 02/10/18at 18:30 ; Start 12/12/17 at 22:00; Stop 02/10/18 at 21:20; Status DC Potassium Chloride/Dextrose/ Sod Cl 1,000 ml @ 84 mls/hr [id number] IV Last administered on 12/12/17at 20:40; Start 12/12/17 at 19:15; Stop 12/13/17 at 12:00; Status DC Diatrizoate Meglum/ Diatrizoate Sod ( Gastroview Liq) 120 ml STK-MED ONCE PEG ; Start 12/13/17 at 15:17; Stop 12/13/17 at 15:18; Status DC Potassium Bicarb/ Potassium Chloride (K-Lyte Cl Eff) 25 meq ONCE ONCE PO Last administered on 12/16/17at 09:56; Start 12/16/17 at 10:00; Stop 12/16/17 at 10:24; Status DC Polyethylene Glycol (Miralax) 17 gm DAILY PRN PO SEVERE CONSTIPATION; Start 08/23 at 18:00; Stop 01/19/18 at 09:02; Status DC Nifedipine (Procardia) 40 mg Q6HR .XX Last administered on 12/27/17at 05:22; Start 12/17/17 at 18:00; Stop 12/27/17 at 09:37; Status DC Oxycodone/ Acetaminophen (Percocet 5-325 Mg) 1 tab Q6H PRN PO PAIN 3 TO 5 Last administered on 01/17/18at 16:35; Start 12/22/17 at 15:00; Stop 01/19/18 at 09:02; Status DC Oxycodone/ Acetaminophen (Percocet 10-325 Mg) 1 tab Q6H PRN PO PAIN 6-10 Last administered on 01/19/18at 05:38; Start 12/22/17 at 15:00; Stop 01/19/18 at 09:02 ; Status DC Clonidine (Catapres-Tts 0.2 Mg Patch.7d) 1 patch Q7D T-DERMAL Last administered on 12/24/17at 12:34; Start 12/24/17 at 11:00; Stop 12/26/17 at 17:20 ; Status DC Miscellaneous Information 1 Q7D T-DERMAL ; Start 12/31/17 at 11:00; Stop at 11:00; Status DC Albuterol/ Ipratropium (Duoneb Neb) 1 ampule STK-MED ONCE .ROUTE ; Start at 18:07; Stop 12/24/17 at 18:08; Status DC Collagenase (Santyl Oint) 1 applic DAILY TOPICAL Last administered on at 08:40; Start 12/25/17 at 17:00 Sodium Hypochlorite (Dakin'S 0.5% Soln) 500 ml DAILY TOPICAL ; Start 12/25/17 at 17:00; Stop 12/25/17 at 17:51; Status DC Sodium Hypochlorite (Dakin'S 0.25% Soln) 500 ml DAILY TOPICAL Last administered on 01/05/18at 09:35; Start 12/25/17 at 17:30; Stop 01/05/18 at 15:29; Status DC Clonidine (Catapres-Tts 0.1mg Patch.7d) 1 patch Q7D T-DERMAL Last administered on 12/26/17at 18:09; Start 12/26/17 at 18:00; Stop 12/28/17 at 23:53; Status DC Miscellaneous Information 1 Q7D T-DERMAL Last administered on 12/26/17at 18:00; Start 12/26/17 at 18:00; Stop 12/28/17 at 23:53; Status DC Nifedipine (Procardia) 40 mg Q6HR .XX Last administered on 01/19/18at 05:37; Start 12/27/17 at 12:00; Stop 01/19/18 at 09:00; Status DC Levofloxacin/ Dextrose 100 ml @ 100 mls/hr Q24H IV Last administered on at 20:07; Start 01/01/18 at 20:00; Stop 01/02/18 at 13:32; Status DC Levofloxacin (Levaquin) 750 mg DAILY PO Last administered on 01/02/18at 20:43; Start 01/02/18 at 20:00; Stop 01/03/18 at 08:11; Status DC Escitalopram Oxalate (Lexapro) 10 mg DAILY PEG Last administered on 03/02/18at 09:51; Start 01/02/18 at 17:15 Levofloxacin (Levaquin) 750 mg Q24H PEG ; Start 01/03/18 at 08:15; Stop at 08:15; Status DC Levofloxacin (Levaquin) 750 mg Q24H PEG Last administered on 01/16/18at 21:33; Start 01/03/18 at 20:00; Stop 01/16/18 at 21:00; Status DC Gadodiamide (Omniscan Pf Inj) 10 ml STK-MED ONCE IVCONTRAST Last administered on 01/06/18at 09:20; Start 01/06/18 at 09:20; Stop 01/06/18 at 09:21; Status DC Metronidazole (Flagyl) 500 mg Q8H PO Last administered on 01/19/18at 02:26; Start 01/09/18 at 10:00; Stop 01/19/18 at 08:59; Status DC Diatrizoate Meglum/ Diatrizoate Sod ( Gastromikaela Liq) 18 ml ONCE ONCE PO Last administered on 01/09/18at 12:26; Start 01/09/18 at 09:20; Stop 01/09/18 at 10: 26; Status DC Potassium Bicarb/ Potassium Chloride (K-Lyte Cl Eff) 25 meq ONCE ONCE PO Last administered on 01/09/18at 17:42; Start 01/09/18 at 16:00; Stop 01/09/18 at 16: 01; Status DC Iohexol (Omnipaque 350 Inj) 74 ml STK-MED ONCE IVCONTRAST Last administered on 01/09/18at 19:04; Start 01/09/18 at 19:03; Stop 01/09/18 at 19:04; Status DC Gadodiamide (Omniscan Pf Inj) 10 ml STK-MED ONCE IVCONTRAST Last administered on 01/11/18at 09:11; Start 01/11/18 at 09:11; Stop 01/11/18 at 09:12; Status DC Heparin Sodium (Porcine) (Heparin Inj) 5,000 units Q12HR SQ Last administered on 03/02/18at 20:34; Start 01/13/18 at 09:00 Lactobacillus Acidophilus (Lactinex Pkt) 1 gm TID PO Last administered on at 16:35; Start 01/12/18 at 18:00; Stop 01/19/18 at 08:59; Status DC Sodium Hypochlorite (Dakin'S 0.125% Soln) 50 ml DAILY TOPICAL Last administered on 02/28/18at 08:40; Start 01/13/18 at 20:00 Iohexol (Omnipaque 350 Inj) 15 ml STK-MED ONCE G-TUBE Last administered on 01/18at 17:42; Start 01/18/18 at 17:42; Stop 01/18/18 at 17:43; Status DC Lactobacillus Acidophilus (Lactinex Pkt) 1 gm TID PEG Last administered on 01/19at 16:52; Start 01/19/18 at 09:00; Stop 01/19/18 at 16:58; Status DC Metronidazole (Flagyl) 500 mg Q8H PEG Last administered on 02/05/18 17:06; Start 01/19/18 at 09:00; Stop 02/05/18 at 23:00; Status DC Nifedipine (Procardia) 40 mg Q6HR PEG Last administered on 01/24/18at 17:14; Start 01/19/18 at 12:00; Stop 01/24/18 at 23:03; Status DC Oxycodone/ Acetaminophen (Percocet 5-325 Mg) 1 tab Q6H PRN PEG PAIN 3 TO 5 Last administered on 01/24/18at 09:21; Start 01/19/18 at 09:15; Stop 01/25/18 at 15:39; Status DC Oxycodone/ Acetaminophen (Percocet 10-325 Mg) 1 tab Q6H PRN PEG PAIN 6-10 Last administered on 01/21/18at 05:34; Start 01/19/18 at 09:15; Stop 01/25/18 at 15:39 ; Status DC Polyethylene Glycol (Miralax) 17 gm DAILY PRN PEG SEVERE CONSTIPATION; Start at 09:15 Hydrochlorothiazide (Hydrodiuril) 25 mg DAILY PEG Last administered on at 09:00; Start 01/19/18 at 09:03 Levofloxacin (Levaquin) 750 mg DAILY PO Last administered on 01/19/18at 16:51; Start 01/19/18 at 12:00; Stop 01/19/18 at 17:01; Status DC Fluconazole (Diflucan) 100 mg DAILY PO ; Start 01/20/18 at 09:00; Stop 01/20/18 at 09:00; Status DC Fluconazole (Diflucan) 200 mg ONCE ONCE PO Last administered on 01/19/18at 16: 51; Start 01/19/18 at 15:00; Stop 01/19/18 at 15:01; Status DC Lactobacillus Acidophilus (Lactinex) 1 tab TID PEG Last administered on at 17:33; Start 01/19/18 at 18:00 Fluconazole (Diflucan) 100 mg DAILY PEG Last administered on 02/02/18at 09:54; Start 01/20/18 at 09:00; Stop 02/03/18 at 08:59; Status DC Levofloxacin (Levaquin) 750 mg DAILY@1200 PEG Last administered on 02/20/18at 12 :29; Start 01/20/18 at 12:00; Stop 02/21/18 at 11:59; Status DC Sodium Chloride 1,000 ml @ 50 mls/hr Q20H IV Last administered on 01/26/18 09 :46; Start 01/20/18 at 09:00; Stop 01/26/18 at 20:43; Status DC Nifedipine (Procardia) 40 mg Q8HR PEG Last administered on 03/03/18 05:16; Start 01/25/18 at 06:00 Potassium Chloride 100 ml @ 100 mls/hr Q1H IV Last administered on 01/25/18at 18:04; Start 01/25/18 at 16:00; Stop 01/25/18 at 18:59; Status DC Potassium Bicarb/ Potassium Chloride (K-Lyte Cl Eff) 25 meq ONCE ONCE PEG Last administered on 01/25/18at 17:15; Start 01/25/18 at 15:45; Stop 01/25/18 at 15:48; Status DC Nystatin (Mycostatin Liq) 2.5 ml QID SWISH-SPIT Last administered on 17:11; Start 01/26/18 at 21:00; Stop 01/29/18 at 20:59; Status DC Clonidine (Catapres) 0.1 mg Q4H PRN PEG SBP > 160 Last administered on at 20:30; Start 02/01/18 at 22:00 Simethicone (Simethicone Liq (Drops)) 40 mg QID PRN PO DYSPEPSIA Last administered on 02/14/18at 09:10; Start 02/03/18 at 15:15 Cholestyramine Resin (Questran 4 Gm Pkt) 4 gm Q8HR PEG Last administered on 05:17; Start 02/06/18 at 16:00 Water (Free Water) 200 ml Q6HR PEG Last administered on 03/03/18 05:17; Start 02/07/18 at 06:00 Arginine HCl (Tyshawn Powder) 1 pack BID G-TUBE Last administered on 03/02/18at 20 :37; Start 02/07/18 at 09:00 Hydralazine HCl (Apresoline) 50 mg Q8HR PEG Last administered on 03/03/18 05: 16; Start 02/10/18 at 22:00 Tramadol HCl (Ultram) 50 mg Q12H PEG Last administered on 02/19/18at 06:01; Start 02/17/18 at 16:00; Stop 02/19/18 at 17:20; Status DC Tramadol HCl (Ultram) 50 mg Q12H PEG Last administered on 03/03/18at 05:16; Start 02/19/18 at 18:00 Trimethoprim/ Sulfamethoxazole 272 mg/Dextrose 517 ml @ 344.667 mls/hr Q12H IV ; Start 02/23/18 at 15:00; Stop 02/23/18 at 16:21; Status DC Trimethoprim/ Sulfamethoxazole (Bactrim 800-160 Mg/20 ml Liq) 20 ml Q12HR PEG Last administered on 03/02/18at 20:34; Start 02/23/18 at 16:30 Diphenoxylate HCl/ Atropine (Lomotil 2.5-0.025 Mg Liq) 5 ml Q6H PRN PO Diarrhea Last administered on 02/27/18at 10:33; Start 02/23/18 at 16:30 Fluconazole/ Sodium Chloride 200 ml @ 100 mls/hr Q24H IV Last administered on 03/02/18at 17:38; Start 02/25/18 at 18:00; Stop 03/11/18 at 17:59 Silver Nitrate/ Potassium Nitrate (Silver Nitrate Applicators) 1 appl MoWeFr TOPICAL Last administered on 03/02/18at 17:34; Start 02/28/18 at 18:02 A/P Problem List: (1) Major neurocognitive disorder ICD Code: F03.90 - Unspecified dementia without behavioral disturbance (2) Hemiparesis ICD Code: G81.90 - Hemiplegia, unspecified affecting unspecified side Status: Acute (3) Intracranial hemorrhage ICD Code: I62.9 - Nontraumatic intracranial hemorrhage, unspecified Status: Chronic (4) Aphasia ICD Code: R47.01 - Aphasia Assessment and Plan Assessment and Plan 62-year-old female with history of hemorrhagic stroke and resulting neurocognitive decline. Status post hemorrhagic CVA, new acute and subacute stroke with chronic right hemiplegia and aphasia. Questionable new facial droop on 01/10; Brain MRI 01/11 showed acute to subacute left thalamic infarct with mild hemorrhagic component in patient with previous history of relatively large left thalamic CVA Neuro and neurosurgery consulted; no surgical intervention needed. Agreed to pharmacologic prophylaxis Facial droop improved UTI Ctx growing Enterobacter aerogenes. Patient received Levaquin x 14 days (01/03-) Repeat urinalysis showed Yenifer anticoagulates negative staph. Continue Diflucan for 2 weeks. Cruz catheter placed. Pt remains afebrile Vomiting -Changed to feeding tube continuous, awaiting dietary consult, resolved. Stage IV sacral pressure ulcer MRI showing bony edema and marrow replacement concerning for osteomyelitis; ID following, continue Levaquin and Flagyl until February Wound care following, S/P bedside debridement 01/[address] wound [address] in [address] now-continue current wound care per wound care recommendations History of hemorrhagic CVA Continue PT, OT, and ST Poor prognosis. Patient does not participate well with therapy Palliative care following Dysphagia Due to hemorrhagic stroke Status post PEG placement on 05/09/17, PEG tube out 01/18/2018, consult invasive radiology for PEG tube reinsertion, medically necessary. Continue tube feedings On continuous tube feeds HTN Continue nifedipine 40 mg Q6H, Apresoline 50 mg Q6H, Metoprolol 100 mg BID, HCTZ 25 mg Daily Vasotec IV PRN, Clonidine PRN Hyperglycemia Glucerna for tube feeds Follow blood sugars intermittently Xeroderma on bilateral feet Lac-Hydrin 12% Lotion continued Depression Continue Lexapro 10 mg via PEG daily Nutrition Tube feeds changed to Glucerna 1.5 continuous, bolus feeding with Tyshawn DVT Prophylaxis Heparin (cleared by neurosurgery) No change in management-except wound care per wound care nurse continue VAC Discharge Planning Patient was homeless prior to admit Poor access for inpatient rehabilitation Family desires aggressive measures for therapy and placement Independent funding unavailable for placement Long-term prognosis is poor No significant capacity for regaining full functionality Palliative care following Very poor prognosis. Patient does not display any meaningful involvement with therapy. Difficult DC. Awaiting placement Harry Vargas DO Mar 03, 2018 09:56
[2018-03-03] MEDS: JUVEN POWDER 1 PACK G-TUBE SCH ×2 (10:09→21:00)
[2018-03-03] MEDS: METOPROLOL TARTRATE 25 MG TAB PEG SCH ×2 (10:09→20:22)
[2018-03-03] MEDS: LACTOBACILLUS ACIDOPHILUS TAB PEG SCH ×3 (10:09→17:52)
[2018-03-03] MEDS: ESCITALOPRAM OXALATE 10 MG TAB PEG SCH (10:09)
[2018-03-03] MEDS: HYDROCHLOROTHIAZIDE 25 MG TAB PEG SCH (10:09)
[2018-03-03] MEDS: SULFAMETHOXAZOLE-TRIMETHOPRIM 800-160 MG/20 ML UDC PEG SCH ×2 (10:09→20:22)
[2018-03-03] MEDS: LANSOPRAZOLE SOLUTAB 30 MG TAB G-TUBE SCH (10:10)
[2018-03-03] MEDS: HEPARIN SODIUM - SQ 10,000 UNITS/ML VIAL SQ SCH ×2 (10:10→20:23)
[2018-03-03] MEDS: COLLAGENASE OINT 30 GM TUBE TOPICAL SCH (10:11)
[2018-03-03] MEDS: LACTIC ACID (AMMONIUM LACTATE) 12% LOTION 225 GM BTL TOPICAL SCH ×2 (10:11→20:24)
[2018-03-03] MEDS: SODIUM HYPOCHLORITE 0.125% 500 ML BTL TOPICAL SCH (10:11)
[2018-03-03 12:00] VITALS: BP 107/76; PULSE 99; RESP 16; TEMP 99.7; O2SAT 98
[2018-03-03 16:00] VITALS: BP 110/79; PULSE 100; RESP 16; TEMP 98.9; O2SAT 97
[2018-03-03] MEDS: FLUCONAZOLE 400 MG PREMIX BAG 200 ML IV SCH (17:52)
[2018-03-03 19:51] VITALS: BP 120/83; PULSE 106; RESP 16; TEMP 99.2; O2SAT 99
[2018-03-03 23:06] VITALS: BP 105/69; PULSE 95; RESP 16; TEMP 99.1; O2SAT 99
[2018-03-04 03:13] VITALS: BP 122/87; PULSE 111; RESP 20; TEMP 100.1; O2SAT 98
[2018-03-04] MEDS: FREE WATER PEG SCH ×4 (06:00→23:32)
[2018-03-04] MEDS: hydrALAZINE HCL 50 MG TAB PEG SCH ×3 (06:21→21:33)
[2018-03-04] MEDS: NIFEdipine 20 MG CAP PEG SCH ×3 (06:21→21:33)
[2018-03-04] MEDS: CHOLESTYRAMINE 4 GM PACKET PEG SCH ×3 (06:21→23:32)
[2018-03-04] MEDS: traMADol HCL 50 MG TAB PEG SCH ×2 (06:21→17:39)
[2018-03-04 08:00] VITALS: BP 103/72; PULSE 115; RESP 22; TEMP 100.9; O2SAT 95
[2018-03-04] MEDS: SULFAMETHOXAZOLE-TRIMETHOPRIM 800-160 MG/20 ML UDC PEG SCH ×2 (08:49→21:33)
[2018-03-04] MEDS: HEPARIN SODIUM - SQ 10,000 UNITS/ML VIAL SQ SCH ×2 (08:49→21:32)
[2018-03-04] MEDS: LANSOPRAZOLE SOLUTAB 30 MG TAB G-TUBE SCH (08:50)
[2018-03-04] MEDS: JUVEN POWDER 1 PACK G-TUBE SCH ×2 (08:50→21:33)
[2018-03-04] MEDS: METOPROLOL TARTRATE 25 MG TAB PEG SCH ×2 (08:50→21:33)
[2018-03-04] MEDS: ESCITALOPRAM OXALATE 10 MG TAB PEG SCH (08:50)
[2018-03-04] MEDS: LACTOBACILLUS ACIDOPHILUS TAB PEG SCH ×3 (08:50→17:38)
[2018-03-04] MEDS: HYDROCHLOROTHIAZIDE 25 MG TAB PEG SCH (08:50)
[2018-03-04] MEDS: SODIUM HYPOCHLORITE 0.125% 500 ML BTL TOPICAL SCH (08:51)
[2018-03-04] MEDS: LACTIC ACID (AMMONIUM LACTATE) 12% LOTION 225 GM BTL TOPICAL SCH ×2 (08:51→21:34)
[2018-03-04] MEDS: COLLAGENASE OINT 30 GM TUBE TOPICAL SCH (08:51)
--- NOTE | 2018-03-04 09:12 | HHI.PR ---
Subjective Remarks Patient seen and examined this morning. Temperature 100.1, pulse range between 95-111, respiratory 20, blood pressure 122/87, pulse ox 98 on room air. Patient is nonverbal. Case discussed with the nurse. Objective Vitals Vital Signs Date Time Temp Pulse Resp B/P (MAP) Pulse Ox O2 Delivery O2 Flow Rate FiO2 03/04/18 03:13 100.1 111 20 122/87 (99) 98 03/03/18 23:06 99.1 95 16 105/69 (81) 99 03/03/18 19:51 99.2 106 16 120/83 (95) 99 03/03/18 16:00 98.9 100 16 110/79 (89) 97 03/03/18 12:00 99.7 99 16 107/76 (86) 98 I/O 03/03/18 03/03/18 03/03/18 03/04/18 03/04/18 03/04/18 07:00 15:00 23:00 07:00 15:00 23:00 Intake Total 1201 ml 1172 ml 720 ml Output Total 850 ml 1050 ml 440 ml Balance 351 ml 122 ml 280 ml Tube Feeding 1001 ml 652 ml 320 ml Other 200 ml 520 ml 400 ml Output Urine Total 850 ml 1050 ml 440 ml # Bowel Movements 1 1 Imaging Last Impressions Head CT 01/20/18 0000 Signed Impressions: Service Date/Time: Sunday, January 21, 2018 16:13 - CONCLUSION: 1. Small area of encephalomalacia with some surrounding hemorrhage in the left basal ganglia most consistent with an area of hemorrhagic infarct. This is stable compared to previous exams. 2. Cortical atrophy and microvascular ischemic demyelinative change. Timmy Dumas MD Chest X-Ray 01/19/18 0000 Signed Impressions: Service Date/Time: Friday, January 19, 2018 17:12 - CONCLUSION: Trace left base atelectasis. Hu Henderson MD Gastrostomy Tube Placement 01/18/18 0000 Signed Impressions: Service Date/Time: January 16:41 - CONCLUSION: Uncomplicated gastrostomy tube replacement through an existing tract. Timmy Dumas MD Brain MRI 01/11/18 0000 Signed Impressions: Service Date/Time: January 08:45 - CONCLUSION: 1. Focal area of restricted diffusion in the left thalmus characteristic of an acute to subacute infarct. 2. GRE images demonstrate subacute hemorrhage associated with the infarct in the left thalamus. 3. GRE images also demonstrate punctate areas of microhemorrhage noted in the deep right mid parietal lobe, right occipital lobe and bilateral basal ganglia regions, left greater than right. 4. Diffuse bilateral cortical atrophy and chronic white matter changes. Luciano Morales MD Abdomen/Pelvis CT 01/09/18 0000 Signed Impressions: Service Date/Time: Tuesday, January 09, 2018 18:48 - CONCLUSION: 1. There is a sacral decubitus wound/ulcer which extends to the sacrum. Prior MRI demonstrated abnormal sacrum in the inferior aspect of the sacrum and coccyx. There is also presacral edema. These findings are highly suspicious for osteomyelitis. 2. Nonacute findings include 3 mm nonobstructing right renal stone and multi-fibroid uterus. Hu Cuenca MD Sacrum/Coccyx MRI 01/06/18 0000 Signed Impressions: Service Date/Time: Saturday, January 06, 2018 08:30 - CONCLUSION: Large decubitus ulcer posteriorly with not only bony edema and marrow replacement concerning for osteomyelitis but it extends to the presacral fat is well where there is marked enhancement and fluid on the T2-weighted sequences. The coccygeal involvement is at least 3.5 cm in length. Eliud Du MD Abdomen X-Ray 12/13/17 0000 Signed Impressions: Service Date/Time: Wednesday, December 13, 2017 14:17 - CONCLUSION: PEG tube in stomach.. Harry uDmas MD FACR Upper Extremity Ultrasound 11/06/17 0000 Signed Impressions: Service Date/Time: Monday, November 06, 2017 14:17 - CONCLUSION: Normal examination. K. Byron Perez MD Pelvis CT 10/13/17 0000 Signed Impressions: Service Date/Time: Friday, October 13, 2017 12:02 - CONCLUSION: 1. Decubitus ulcer with small abscess in the right posterior perineal region measuring 3.1 x 4.6 cm. There is also a small abscess posterior and to the left of the rectum measuring 3.2 x 2.3 cm. Jann Weber MD Neck CTA 04/10/17 0000 Signed Impressions: Service Date/Time: Monday, April 10, 2017 22:28 - CONCLUSION: The internal carotid arteries are normal bilaterally. No significant atherosclerotic disease is noted. Eliud Du MD Head CTA 04/10/17 0000 Signed Impressions: Service Date/Time: Monday, April 10, 2017 22:50 - CONCLUSION: Mild dilatation of the basilar tip without discrete aneurysm. Some narrowing of the left middle cerebral branch after the bifurcation. Prominent left thalamic hemorrhage. Eliud Du MD Objective Remarks GENERAL: Well-nourished, well-developed female patient in NAD. Lying in hospital bed. Awake. Nonverbal. Follows commands. SKIN: Warm and dry. No rash. HEAD: Normocephalic. EYES: No scleral icterus. No injection or drainage. ENT: No nasal bleeding or discharge. Mucous membranes pink and moist. NECK: Supple. Trachea midline. CARDIOVASCULAR: Regular rate and rhythm. 3/6 blowing murmur appreciated. RESPIRATORY: No accessory muscle use. Breath sounds equal bilaterally. GASTROINTESTINAL: Abdomen soft, non-tender, nondistended. Normoactive bowel sounds x4. s/p PEG tube placement, site C/D/I. MUSCULOSKELETAL: No edema noted. RUE and RLE flaccid. Spontaneous movement noted in LUE. NEUROLOGICAL: Awake. Nonberbal. Procedures Peg Tube placed 05/08/17 (Dr. De Los Santos) Medications and IVs Current Medications Medications (Trade) Dose Ordered Sig/Reymundo Route Start Time Stop Time Status Last Admin (Dulcolax Supp) 10 mg DAILY PRN RECTAL 04/10/17 22:00 (Lac-Hydrin 12% Lotion) 1 applic BID TOPICAL 05/04/17 14:00 03/04/18 08:51 (Prevacid Odt) 30 mg DAILY G-TUBE 05/10/17 09:00 03/04/18 08:50 (Apresoline) 25 mg Q4HR PRN PEG 05/18/17 14:45 03/02/18 09:51 (Zofran Liq) 4 mg Q6H PRN PEG 05/26/17 10:00 02/09/18 09:37 (Tylenol) 650 mg Q6H PRN PEG 06/16/17 16:00 Future Hold 10/17/17 19:29 (Senna Liq) 8.8 mg DAILY PEG 06/29/17 09:00 Future Hold 10/17/17 10:02 (Pill Splitter) 1 ea UNSCH PRN OTHER 10/17/17 17:45 12/08/17 20:45 (Lopressor) 25 mg BID PEG 11/24/17 21:00 03/04/18 08:50 (Santyl Oint) 1 applic DAILY TOPICAL 12/25/17 17:00 03/03/18 10:11 (Lexapro) 10 mg DAILY PEG 01/02/18 17:15 03/04/18 08:50 (Heparin Inj) 5,000 units Q12HR SQ 01/13/18 09:00 03/04/18 08:49 (Dakin'S 0.125% Soln) 50 ml DAILY TOPICAL 01/13/18 20:00 03/03/18 10:11 (Miralax) 17 gm DAILY PRN PEG 01/19/18 09:15 (Hydrodiuril) 25 mg DAILY PEG 01/19/18 09:03 03/04/18 08:50 (Lactinex) 1 tab TID PEG 01/19/18 18:00 03/04/18 08:50 (Procardia) 40 mg Q8HR PEG 01/25/18 06:00 03/04/18 06:21 (Catapres) 0.1 mg Q4H PRN PEG 02/01/18 22:00 02/14/18 20:30 (Simethicone Liq (Drops)) 40 mg QID PRN PO 02/03/18 15:15 02/14/18 09:10 (Questran 4 Gm Pkt) 4 gm Q8HR PEG 02/06/18 16:00 03/04/18 06:21 (Free Water) 200 ml Q6HR PEG 02/07/18 06:00 03/04/18 06:00 (Tyshawn Powder) 1 pack BID G-TUBE 02/07/18 09:00 03/04/18 08:50 (Apresoline) 50 mg Q8HR PEG 02/10/18 22:00 03/04/18 06:21 (Ultram) 50 mg Q12H PEG 02/19/18 18:00 03/04/18 06:21 (Bactrim 800-160 Mg/20 ml Liq) 20 ml Q12HR PEG 02/23/18 16:30 03/04/18 08:49 (Lomotil 2.5-0.025 Mg Liq) 5 ml Q6H PRN PO 02/23/18 16:30 02/27/18 10:33 Fluconazole/ Sodium Chloride 200 ml @ 100 mls/hr Q24H IV 02/25/18 18:00 03/11/18 17:59 03/03/18 17:52 (Silver Nitrate Applicators) 1 appl MoWeFr TOPICAL 02/28/18 18:02 03/02/18 17:34 A/P Problem List: (1) Major neurocognitive disorder ICD Code: F03.90 - Unspecified dementia without behavioral disturbance (2) Hemiparesis ICD Code: G81.90 - Hemiplegia, unspecified affecting unspecified side Status: Acute (3) Intracranial hemorrhage ICD Code: I62.9 - Nontraumatic intracranial hemorrhage, unspecified Status: Chronic (4) Aphasia ICD Code: R47.01 - Aphasia Assessment and Plan 62-year-old female with history of hemorrhagic stroke and resulting neurocognitive decline: Status post hemorrhagic CVA, new acute and subacute stroke with chronic right hemiplegia and aphasia. Questionable new facial droop on 01/10; Brain MRI 01/11 showed acute to subacute left thalamic infarct with mild hemorrhagic component in patient with previous history of relatively large left thalamic CVA Neuro and neurosurgery consulted; no surgical intervention needed. Agreed to pharmacologic prophylaxis Facial droop improved UTI Ctx growing Enterobacter aerogenes. Patient received Levaquin x 14 days (01/03-) Repeat urinalysis showed Yenifer anticoagulates negative staph. Continue Diflucan for 2 weeks. Cruz catheter placed. Pt remains afebrile Vomiting -Changed to feeding tube continuous, awaiting dietary consult, resolved. Stage IV sacral pressure ulcer MRI showing bony edema and marrow replacement concerning for osteomyelitis; ID following, continue Levaquin and Flagyl until February Wound care following, S/P bedside debridement 01/[address] wound [address] in place now-continue current wound care per wound care recommendations History of hemorrhagic CVA Continue PT, OT, and ST Poor prognosis. Patient does not participate well with therapy Palliative care following Dysphagia Due to hemorrhagic stroke Status post PEG placement on 05/09/17, PEG tube out 01/18/2018, consult invasive radiology for PEG tube reinsertion, medically necessary. Continue tube feedings On continuous tube feeds HTN Continue nifedipine 40 mg Q6H, Apresoline 50 mg Q6H, Metoprolol 100 mg BID, HCTZ 25 mg Daily Vasotec IV PRN, Clonidine PRN Hyperglycemia Glucerna for tube feeds Follow blood sugars intermittently Xeroderma on bilateral feet Lac-Hydrin 12% Lotion continued Depression Continue Lexapro 10 mg via PEG daily Nutrition Tube feeds changed to Glucerna 1.5 continuous, bolus feeding with Tyshawn DVT Prophylaxis Heparin (cleared by neurosurgery) No change in management-except wound care per wound care nurse continue VAC Discharge Planning Patient was homeless prior to admit Poor access for inpatient rehabilitation Family desires aggressive measures for therapy and placement Independent funding unavailable for placement Long-term prognosis is poor No significant capacity for regaining full functionality Palliative care following Very poor prognosis. Patient does not display any meaningful involvement with therapy. Difficult DC. Awaiting placement Karri Merchant MD R3 Mar 04, 2018 09:12
[2018-03-04 12:00] VITALS: BP 107/77; PULSE 90; RESP 16; TEMP 100.7; O2SAT 97
[2018-03-04 16:00] VITALS: BP 102/70; PULSE 101; RESP 16; TEMP 100.8; O2SAT 98
[2018-03-04] MEDS: FLUCONAZOLE 400 MG PREMIX BAG 200 ML IV SCH (17:38)
[2018-03-04 20:00] VITALS: BP 105/71; PULSE 105; RESP 16; TEMP 99.7; O2SAT 98
[2018-03-05] VITALS: BP 112/79; PULSE 93; RESP 16; TEMP 99.2; O2SAT 98
[2018-03-05 04:07] VITALS: BP 116/80; PULSE 98; RESP 16; TEMP 99.3; O2SAT 100
[2018-03-05] MEDS: CHOLESTYRAMINE 4 GM PACKET PEG SCH ×3 (05:43→21:52)
[2018-03-05] MEDS: traMADol HCL 50 MG TAB PEG SCH ×2 (05:43→18:26)
[2018-03-05] MEDS: NIFEdipine 20 MG CAP PEG SCH ×3 (05:43→21:52)
[2018-03-05] MEDS: hydrALAZINE HCL 50 MG TAB PEG SCH ×3 (05:43→21:51)
[2018-03-05] MEDS: FREE WATER PEG SCH ×3 (05:44→13:31)
[2018-03-05] MEDS: SODIUM HYPOCHLORITE 0.125% 500 ML BTL TOPICAL SCH (09:00)
[2018-03-05] MEDS: COLLAGENASE OINT 30 GM TUBE TOPICAL SCH (09:00)
[2018-03-05] MEDS: JUVEN POWDER 1 PACK G-TUBE SCH ×2 (09:00→21:00)
[2018-03-05] MEDS: LACTIC ACID (AMMONIUM LACTATE) 12% LOTION 225 GM BTL TOPICAL SCH ×2 (09:00→20:59)
[2018-03-05] MEDS: LANSOPRAZOLE SOLUTAB 30 MG TAB G-TUBE SCH (09:15)
[2018-03-05] MEDS: SULFAMETHOXAZOLE-TRIMETHOPRIM 800-160 MG/20 ML UDC PEG SCH ×2 (09:15→20:58)
[2018-03-05] MEDS: HEPARIN SODIUM - SQ 10,000 UNITS/ML VIAL SQ SCH ×2 (09:15→20:59)
[2018-03-05] MEDS: METOPROLOL TARTRATE 25 MG TAB PEG SCH ×2 (09:15→20:59)
[2018-03-05] MEDS: LACTOBACILLUS ACIDOPHILUS TAB PEG SCH ×3 (09:15→18:26)
[2018-03-05] MEDS: HYDROCHLOROTHIAZIDE 25 MG TAB PEG SCH (09:15)
[2018-03-05] MEDS: ESCITALOPRAM OXALATE 10 MG TAB PEG SCH (09:15)
[2018-03-05 11:12] VITALS: BP 118/84; PULSE 72; RESP 14; TEMP 97.6; O2SAT 99
[2018-03-05 12:00] VITALS: BP 131/75; PULSE 90; RESP 20; TEMP 98.1; O2SAT 100
[2018-03-05] MEDS: SILVER NITR/POTASSIUM NITRATE APPLICATORS TOPICAL SCH (13:22)
--- NOTE | 2018-03-05 13:58 | PD.WCN.NOT ---
Neg Pressure Wound Therapy Wound Location Wound Location: Coccyx Wound Description Length: 4cm Width: 4cm Depth: 0.8cm Underminin to 4 o'clock deepest at 12 o'clock measuring ~1cm Wound bed appearance: ~90% red granulation tissue and ~10% bone Periwound appearance: Other Settings Suction: 125 mmHg, Continuous Intensity: Low Other Information: Bridged, Windowpaned, Mushroomed Foam type: Black Number of pieces: 1 Additonal Information Patient seen on 4th floor LTVU for wound VAC dressing change and Silver nitrate treatment of epibole around 1100. Patient was turned with the assistance of LINSEY Myrick on LTVU to L side for wound VAC dressing change. Removed wound VAc dressing in place. Wound was cleansed with 1/4 strength dakin's solution and sterile water.Silver nitrate was applied to epibole wound margins. Xeroform gauze was applied to periwound full and partial thickness skin loss. Skin barrier film was applied to periwound and up to R anterior thigh. VAC drape was bridged from wound bed to R thigh. Granufoam was cut in to single strip and was applied in a cinnamon roll fashion to reach undermined areas and bridged up over VAC drape to R anterior thigh. Applied Sensi trac pad to bridged granufoam on R anterior thigh. Covered all exposed granufoam with VAC drape.Stoma paste was applied to seal wound VAC dressing. Wound VAc is suctioning at 125 mm/hg low continuous suction. Romelia Liz [facility] Mar 05, 2018 13:58
--- NOTE | 2018-03-05 14:30 | HHI.PR ---
Subjective Remarks The patient appeared comfortable. She did not seem to have any acute complaints. Discussed with nursing who had no concerns. Objective Vitals Vital Signs Date Time Temp Pulse Resp B/P (MAP) Pulse Ox O2 Delivery O2 Flow Rate FiO2 03/05/18 12:00 98.1 90 20 131/75 (93) 100 03/05/18 11:12 97.6 72 14 118/84 (95) 99 03/05/18 04:07 99.3 98 16 116/80 (92) 100 03/05/18 00:00 99.2 93 16 112/79 (90) 98 03/04/18 20:00 99.7 105 16 105/71 (82) 98 03/04/18 16:00 100.8 101 16 102/70 (81) 98 I/O 03/04/18 03/04/18 03/04/18 03/05/18 03/05/18 03/05/18 07:00 15:00 23:00 07:00 15:00 23:00 Intake Total 720 ml 868 ml Output Total 440 ml 750 ml Balance 280 ml 118 ml Tube Feeding 320 ml 468 ml Other 400 ml 400 ml Output Urine Total 440 ml 750 ml # Bowel Movements 1 1 1 Objective Remarks GENERAL: Well-nourished, well-developed female patient in NAD. Lying in hospital bed. Awake. Nonverbal. Follows commands. SKIN: Warm and dry. No rash. HEAD: Normocephalic. EYES: No scleral icterus. No injection or drainage. ENT: No nasal bleeding or discharge. Mucous membranes pink and moist. NECK: Supple. Trachea midline. CARDIOVASCULAR: Regular rate and rhythm. Murmur appreciated. RESPIRATORY: No accessory muscle use. Breath sounds equal bilaterally. GASTROINTESTINAL: Abdomen soft, non-tender, nondistended. Normoactive bowel sounds x4. s/p PEG tube placement, site C/D/I. MUSCULOSKELETAL: No edema noted. RUE and RLE flaccid. Spontaneous movement noted in LUE. NEUROLOGICAL: Awake. Nonberbal. Procedures Peg Tube placed 05/08/17 (Dr. De Los Santos) A/P Problem List: (1) Major neurocognitive disorder ICD Code: F03.90 - Unspecified dementia without behavioral disturbance (2) Hemiparesis ICD Code: G81.90 - Hemiplegia, unspecified affecting unspecified side Status: Acute (3) Intracranial hemorrhage ICD Code: I62.9 - Nontraumatic intracranial hemorrhage, unspecified Status: Chronic (4) Aphasia ICD Code: R47.01 - Aphasia Assessment and Plan 62-year-old female with history of hemorrhagic stroke and resulting neurocognitive decline: Status post hemorrhagic CVA, new acute and subacute stroke with chronic right hemiplegia and aphasia. Questionable new facial droop on 01/10; Brain MRI 01/11 showed acute to subacute left thalamic infarct with mild hemorrhagic component in patient with previous history of relatively large left thalamic CVA Neuro and neurosurgery consulted; no surgical intervention needed. Agreed to pharmacologic prophylaxis Facial droop improved UTI Ctx growing Enterobacter aerogenes. Patient received Levaquin x 14 days (01/03-) Repeat urinalysis showed Yenifer anticoagulates negative staph. Continue Diflucan for 2 weeks. Cruz catheter placed. -Had low-grade fever 03/04/18. Currently afebrile. Will stephenson-culture if spikes again. Check CBC in AM. Vomiting -Changed to feeding tube continuous, awaiting dietary consult, resolved. Stage IV sacral pressure ulcer MRI showing bony edema and marrow replacement concerning for osteomyelitis; ID following, continue Levaquin and Flagyl until February Wound care following, S/P bedside debridement 01/11 [address] wound [address] in place now-continue current wound care per wound care recommendations History of hemorrhagic CVA Continue PT, OT, and ST Poor prognosis. Patient does not participate well with therapy Palliative care following Dysphagia Due to hemorrhagic stroke Status post PEG placement on 05/09/17, PEG tube out 01/18/2018, consult invasive radiology for PEG tube reinsertion, medically necessary. Continue tube feedings HTN Continue nifedipine 40 mg Q6H, Apresoline 50 mg Q6H, Metoprolol 100 mg BID, HCTZ 25 mg Daily Vasotec IV PRN, Clonidine PRN -Well-controlled 03/05/2018. Hyperglycemia Glucerna for tube feeds Follow blood sugars intermittently Xeroderma on bilateral feet Lac-Hydrin 12% Lotion continued Depression Continue Lexapro 10 mg via PEG daily Nutrition Tube feeds changed to Glucerna 1.5 continuous, bolus feeding with Tyshawn DVT Prophylaxis Heparin (cleared by neurosurgery) Discharge Planning Discharge Planning Patient was homeless prior to admit Poor access for inpatient rehabilitation Family desires aggressive measures for therapy and placement Independent funding unavailable for placement Long-term prognosis is poor No significant capacity for regaining full functionality Palliative care following Suresh Hermosillo DO Mar 05, 2018 14:29
[2018-03-05 16:00] VITALS: BP 124/80; PULSE 74; RESP 14; TEMP 98.7; O2SAT 99
[2018-03-05] MEDS: FLUCONAZOLE 400 MG PREMIX BAG 200 ML IV SCH (18:28)
[2018-03-05 20:00] VITALS: BP 114/78; PULSE 109; RESP 16; TEMP 99.3; O2SAT 97
[2018-03-06] VITALS: BP 107/76; PULSE 90; RESP 18; TEMP 98.7; O2SAT 99
[2018-03-06 04:00] VITALS: BP 116/81; PULSE 101; RESP 18; TEMP 98.9; O2SAT 98
[2018-03-06] MEDS: hydrALAZINE HCL 50 MG TAB PEG SCH ×3 (06:00→22:03)
[2018-03-06] MEDS: FREE WATER PEG SCH ×4 (06:00→14:58)
[2018-03-06] MEDS: NIFEdipine 20 MG CAP PEG SCH ×3 (07:00→22:03)
[2018-03-06] MEDS: traMADol HCL 50 MG TAB PEG SCH ×2 (07:00→17:30)
[2018-03-06] MEDS: CHOLESTYRAMINE 4 GM PACKET PEG SCH ×3 (07:00→22:03)
[2018-03-06 08:00] VITALS: BP 124/76; PULSE 70; RESP 14; TEMP 98.7; O2SAT 98
[2018-03-06 08:12] LABS: AUTOMATED NEUTROPHIL # 1.5 TH/MM3 (1.8-7.7); BASOPHIL % 0.7 % (0.0-2.0); EOSINOPHIL % 0.6 % (0.0-4.0); HEMATOCRIT 39.4 % (35.0-46.0); HEMOGLOBIN 13.3 GM/DL (11.6-15.3); LYMPH % 28.4 % (9.0-44.0); LYMPHOCYTE # 0.8 TH/MM3 (1.0-4.8); MEAN CELL VOLUME 80.8 FL (80.0-100.0); MEAN CORPUSCULAR HEMOGLOBIN 27.3 PG (27.0-34.0); MEAN CORPUSCULAR HGB CONC 33.8 % (32.0-36.0); MEAN PLATELET VOLUME 8.2 FL (7.0-11.0); MONO % 20.2 % (0.0-8.0); MONOCYTE # 0.6 TH/MM3 (0-0.9); NEUT % 50.1 % (16.0-70.0); PLATELET COUNT 280 TH/MM3 (150-450); RED BLOOD COUNT 4.88 MIL/MM3 (4.00-5.30)
[2018-03-06] MEDS: SULFAMETHOXAZOLE-TRIMETHOPRIM 800-160 MG/20 ML UDC PEG SCH ×2 (08:37→22:03)
[2018-03-06] MEDS: HEPARIN SODIUM - SQ 10,000 UNITS/ML VIAL SQ SCH ×2 (08:37→22:03)
[2018-03-06] MEDS: METOPROLOL TARTRATE 25 MG TAB PEG SCH ×2 (08:37→22:03)
[2018-03-06] MEDS: ESCITALOPRAM OXALATE 10 MG TAB PEG SCH (08:37)
[2018-03-06] MEDS: LANSOPRAZOLE SOLUTAB 30 MG TAB G-TUBE SCH (08:37)
[2018-03-06] MEDS: LACTOBACILLUS ACIDOPHILUS TAB PEG SCH ×3 (08:38→14:59)
[2018-03-06] MEDS: HYDROCHLOROTHIAZIDE 25 MG TAB PEG SCH (08:38)
[2018-03-06] MEDS: SODIUM HYPOCHLORITE 0.125% 500 ML BTL TOPICAL SCH (08:38)
[2018-03-06] MEDS: COLLAGENASE OINT 30 GM TUBE TOPICAL SCH (08:38)
[2018-03-06] MEDS: JUVEN POWDER 1 PACK G-TUBE SCH ×2 (08:38→21:00)
[2018-03-06] MEDS: LACTIC ACID (AMMONIUM LACTATE) 12% LOTION 225 GM BTL TOPICAL SCH ×2 (08:38→21:00)
[2018-03-06 12:05] VITALS: BP 118/88; PULSE 74; RESP 14; TEMP 98.7; O2SAT 98
--- NOTE | 2018-03-06 14:04 | HHI.PR ---
Subjective Remarks Follow up for CVA. The patient is nonverbal but does follow simple commands such as performing instrument adjuster strength of left hand and push/pull with left arm. Discussed with RN, no concerns. Now has wound vac in place to sacral pressure ulcer. Vital signs reviewed and stable. Objective Vitals Vital Signs Date Time Temp Pulse Resp B/P (MAP) Pulse Ox O2 Delivery O2 Flow Rate FiO2 03/06/18 12:05 98.7 74 14 118/88 (98) 98 03/06/18 08:00 98.7 70 14 124/76 (92) 98 03/06/18 04:00 98.9 101 18 116/81 (93) 98 03/06/18 00:00 98.7 90 18 107/76 (86) 99 03/05/18 20:00 99.3 109 16 114/78 (90) 97 03/05/18 19:26 20 03/05/18 16:00 98.7 74 14 124/80 (95) 99 I/O 03/05/18 03/05/18 03/05/18 03/06/18 03/06/18 03/06/18 07:00 15:00 23:00 07:00 15:00 23:00 Intake Total 950 ml 900 ml Output Total 1300 ml 850 ml Balance -350 ml 50 ml Tube Feeding 550 ml 500 ml Other 400 ml 400 ml Output Urine Total 1300 ml 850 ml # Bowel Movements 1 1 2 Result Diagram: 03/06/18 0749 Objective Remarks GENERAL: Thin female laying in bed. Nonverbal. SKIN: Has large stage IV sacral ulcer with wound vac in place. HEAD: Normocephalic. EYES: No scleral icterus. No injection or drainage. NECK: Supple, trachea midline. CARDIOVASCULAR: Regular rate and rhythm. No murmur appreciated. RESPIRATORY: Breath sounds equal bilaterally. No accessory muscle use. GASTROINTESTINAL: Abdomen soft, non-tender, nondistended. EXTREMITIES: No cyanosis or edema. NEUROLOGICAL: Awake, nonverbal. Responds to simple commands such as closes eyes and hand instrument adjuster. Stock Room Manager strength L>R. No obvious facial droop. Procedures Peg Tube placed 05/08/17 (Dr. De Los Santos) Medications and IVs Current Medications Medications (Trade) Dose Ordered Sig/Reymundo Route Start Time Stop Time Status Last Admin (Dulcolax Supp) 10 mg DAILY PRN RECTAL 04/10/17 22:00 (Lac-Hydrin 12% Lotion) 1 applic BID TOPICAL 05/04/17 14:00 03/05/18 20:59 (Prevacid Odt) 30 mg DAILY G-TUBE 05/10/17 09:00 03/06/18 08:37 (Apresoline) 25 mg Q4HR PRN PEG 05/18/17 14:45 03/02/18 09:51 (Zofran Liq) 4 mg Q6H PRN PEG 05/26/17 10:00 02/09/18 09:37 (Tylenol) 650 mg Q6H PRN PEG 06/16/17 16:00 Future Hold 10/17/17 19:29 (Senna Liq) 8.8 mg DAILY PEG 06/29/17 09:00 Future Hold 10/17/17 10:02 (Pill Splitter) 1 ea UNSCH PRN OTHER 10/17/17 17:45 12/08/17 20:45 (Lopressor) 25 mg BID PEG 11/24/17 21:00 03/06/18 08:37 (Santyl Oint) 1 applic DAILY TOPICAL 12/25/17 17:00 03/03/18 10:11 (Lexapro) 10 mg DAILY PEG 01/02/18 17:15 03/06/18 08:37 (Heparin Inj) 5,000 units Q12HR SQ 01/13/18 09:00 03/06/18 08:37 (Dakin'S 0.125% Soln) 50 ml DAILY TOPICAL 01/13/18 20:00 03/03/18 10:11 (Miralax) 17 gm DAILY PRN PEG 01/19/18 09:15 (Hydrodiuril) 25 mg DAILY PEG 01/19/18 09:03 03/05/18 09:15 (Lactinex) 1 tab TID PEG 01/19/18 18:00 03/06/18 08:38 (Procardia) 40 mg Q8HR PEG 01/25/18 06:00 03/06/18 07:00 (Catapres) 0.1 mg Q4H PRN PEG 02/01/18 22:00 02/14/18 20:30 (Simethicone Liq (Drops)) 40 mg QID PRN PO 02/03/18 15:15 02/14/18 09:10 (Questran 4 Gm Pkt) 4 gm Q8HR PEG 02/06/18 16:00 03/06/18 07:00 (Free Water) 200 ml Q6HR PEG 02/07/18 06:00 03/06/18 12:00 (Tyshawn Powder) 1 pack BID G-TUBE 02/07/18 09:00 03/06/18 08:38 (Apresoline) 50 mg Q8HR PEG 02/10/18 22:00 03/05/18 21:51 (Ultram) 50 mg Q12H PEG 02/19/18 18:00 03/06/18 07:00 (Bactrim 800-160 Mg/20 ml Liq) 20 ml Q12HR PEG 02/23/18 16:30 03/06/18 08:37 (Lomotil 2.5-0.025 Mg Liq) 5 ml Q6H PRN PO 02/23/18 16:30 02/27/18 10:33 Fluconazole/ Sodium Chloride 200 ml @ 100 mls/hr Q24H IV 02/25/18 18:00 03/11/18 17:59 03/05/18 18:28 (Silver Nitrate Applicators) 1 appl MoWeFr TOPICAL 02/28/18 18:02 03/05/18 13:22 A/P Problem List: (1) Major neurocognitive disorder ICD Code: F03.90 - Unspecified dementia without behavioral disturbance (2) Hemiparesis ICD Code: G81.90 - Hemiplegia, unspecified affecting unspecified side Status: Acute (3) Intracranial hemorrhage ICD Code: I62.9 - Nontraumatic intracranial hemorrhage, unspecified Status: Chronic (4) Aphasia ICD Code: R47.01 - Aphasia Assessment and Plan 62-year-old female with history of hemorrhagic stroke and resulting neurocognitive decline. Status post hemorrhagic CVA, new acute and subacute stroke with chronic right hemiplegia and aphasia. Questionable new facial droop on 01/10; Brain MRI 01/11 showed acute to subacute left thalamic infarct with mild hemorrhagic component in patient with previous history of relatively large left thalamic CVA Neuro and neurosurgery consulted; no surgical intervention needed. Agreed to pharmacologic prophylaxis Facial droop improved UTI Ctx growing Enterobacter aerogenes. Patient received Levaquin x 14 days (01/03-) Infectious disease suspects Cruz related infection Repeat urinalysis 02/23 showed Yenifer albicans, staph epidermidis. Continue Diflucan for 2 weeks (02/25-03/11). Cruz catheter placed. Had low-grade fever 03/04/18. Currently afebrile. Will stephenson-culture if spikes again. CBC with no leukocytosis. Stage IV sacral pressure ulcer MRI showing bony edema and marrow replacement concerning for osteomyelitis; ID following Wound care following, S/P bedside debridement Has wound VAC in place now-continue current wound care per wound care recommendations History of hemorrhagic CVA Continue PT, OT, and ST Poor prognosis. Patient does not participate well with therapy Palliative care following Dysphagia Due to hemorrhagic stroke Status post PEG placement on 05/09/17 Continue tube feedings HTN Continue nifedipine 40 mg Q6H, Apresoline 50 mg Q6H, Metoprolol 100 mg BID, HCTZ 25 mg Daily Vasotec IV PRN, Clonidine PRN Hyperglycemia Glucerna for tube feeds Follow blood sugars intermittently Xeroderma on bilateral feet Lac-Hydrin 12% Lotion continued Depression Continue Lexapro 10 mg via PEG daily Nutrition Tube feeds changed to Glucerna 1.5 , bolus feeding with Tyshawn DVT Prophylaxis Heparin (cleared by neurosurgery) Discharge Planning Patient was homeless prior to admit Poor access for inpatient rehabilitation Family desires aggressive measures for therapy and placement Independent funding unavailable for placement Long-term prognosis is poor No significant capacity for regaining full functionality Palliative care following Myra Sifuentes PA-C March 06, 2018 2:04 pm
[2018-03-06] MEDS: FLUCONAZOLE 400 MG PREMIX BAG 200 ML IV SCH (14:59)
[2018-03-06 17:12] VITALS: BP 118/78; PULSE 77; RESP 16; TEMP 98.7; O2SAT 98
[2018-03-06 20:00] VITALS: BP 130/85; PULSE 77; RESP 17; TEMP 98.6; O2SAT 98
[2018-03-07] VITALS: BP 109/69; PULSE 93; RESP 17; TEMP 98.6; O2SAT 98
[2018-03-07 04:00] VITALS: BP 113/78; PULSE 98; RESP 17; TEMP 98.7; O2SAT 99
[2018-03-07] MEDS: CHOLESTYRAMINE 4 GM PACKET PEG SCH ×2 (05:59→13:47)
[2018-03-07] MEDS: traMADol HCL 50 MG TAB PEG SCH (05:59)
[2018-03-07] MEDS: NIFEdipine 20 MG CAP PEG SCH ×2 (05:59→13:47)
[2018-03-07] MEDS: FREE WATER PEG SCH ×3 (06:00→12:00)
[2018-03-07] MEDS: hydrALAZINE HCL 50 MG TAB PEG SCH ×2 (06:06→13:47)
[2018-03-07 08:00] VITALS: BP 107/75; PULSE 92; RESP 14; TEMP 98.2; O2SAT 96
[2018-03-07] MEDS: LACTOBACILLUS ACIDOPHILUS TAB PEG SCH ×2 (08:38→13:46)
[2018-03-07] MEDS: ESCITALOPRAM OXALATE 10 MG TAB PEG SCH (08:38)
[2018-03-07] MEDS: METOPROLOL TARTRATE 25 MG TAB PEG SCH (08:38)
[2018-03-07] MEDS: LANSOPRAZOLE SOLUTAB 30 MG TAB G-TUBE SCH (08:38)
[2018-03-07] MEDS: HEPARIN SODIUM - SQ 10,000 UNITS/ML VIAL SQ SCH (08:39)
[2018-03-07] MEDS: SODIUM HYPOCHLORITE 0.125% 500 ML BTL TOPICAL SCH (08:39)
[2018-03-07] MEDS: SULFAMETHOXAZOLE-TRIMETHOPRIM 800-160 MG/20 ML UDC PEG SCH (08:39)
[2018-03-07] MEDS: LACTIC ACID (AMMONIUM LACTATE) 12% LOTION 225 GM BTL TOPICAL SCH (08:39)
[2018-03-07] MEDS: HYDROCHLOROTHIAZIDE 25 MG TAB PEG SCH (08:39)
[2018-03-07] MEDS: COLLAGENASE OINT 30 GM TUBE TOPICAL SCH (08:40)
[2018-03-07] MEDS: JUVEN POWDER 1 PACK G-TUBE SCH (08:40)
[2018-03-07 12:00] VITALS: BP 118/79; PULSE 92; RESP 14; TEMP 98.5; O2SAT 99
[2018-03-07] MEDS ORDERED: HYDR25TA5 PEG (12:12)
[2018-03-07] MEDS ORDERED: COLL30T TOPICAL (12:12)
[2018-03-07] MEDS ORDERED: METO25TA3 PEG (12:12)
[2018-03-07] MEDS ORDERED: PREV30TA3 G-TUBE (12:12)
[2018-03-07] MEDS ORDERED: LACT PEG (12:12)
[2018-03-07] MEDS ORDERED: JUVEPOW3 G-TUBE (12:12)
[2018-03-07] MEDS ORDERED: SILVER NITRATE APPLICATORS TOPICAL (12:12)
[2018-03-07] MEDS ORDERED: Sulfamet-Trimet 800-160 Mg Liq PEG (12:12)
[2018-03-07] MEDS ORDERED: CHOL4POW4 PEG (12:12)
[2018-03-07] MEDS ORDERED: FLUC10S PEG (12:12)
[2018-03-07] MEDS ORDERED: HYDR-3800 PEG (12:12)
[2018-03-07] MEDS ORDERED: NIFE20 PEG (12:12)
[2018-03-07] MEDS ORDERED: TRAM50 PEG (12:12)
[2018-03-07] MEDS ORDERED: Free Water PEG (12:12)
[2018-03-07] MEDS ORDERED: ESCI10TA PEG (12:12)
--- NOTE | 2018-03-07 12:14 | HHI.DCPOC ---
Discharge Care Plan Diagnosis: (1) Hemorrhagic stroke (2) UTI (urinary tract infection) (3) Dementia (4) Stage 4 decubitus ulcer Goals to Promote Your Health * To prevent worsening of your condition and complications * To maintain your health at the optimal level Directions to Meet Your Goals Take your medications as prescribed Follow your dietary instruction Follow activity as directed Keep your appointments as scheduled Take your immunizations and boosters as scheduled If your symptoms worsen call your PCP, if no PCP go to Urgent Care Center or Emergency Room Smoking is Dangerous to Your Health. Avoid second hand smoke Call the 24-hour hour crisis hotline for domestic abuse at Myra Sifuentes PA-C March 07, 2018 12:14 pm
--- NOTE | 2018-03-07 12:20 | HHI.DS ---
Discharge Summary Admission Date Apr 10, 2017 at 8:54 pm Discharge Date: March 07, 2018 Admitting Diagnosis intracranial hemorrhage, right hemiparesis (1) Intracranial hemorrhage ICD Code: I62.9 - Nontraumatic intracranial hemorrhage, unspecified Status: Chronic (2) Major neurocognitive disorder ICD Code: F03.90 - Unspecified dementia without behavioral disturbance (3) Hemiparesis ICD Code: G81.90 - Hemiplegia, unspecified affecting unspecified side Status: Acute (4) Aphasia ICD Code: R47.01 - Aphasia Procedures Peg Tube placed 05/08/17 (Dr. De Los Santos) Brief History - From Admission Middle-aged very pleasant female brought in by ambulance after being found in a park sitting next to a bench with altered mental status. Unknown time of onset. Patient was found by children playing in the park. Upon EMS arrival they noted right-sided weakness with a leftward gaze. Patient is nonverbal, she is following commands and is moving her left upper and left lower extremity. EKG was performed in the field and shows ST elevations in V1 through V3 with ST depressions and T-wave inversions in V5 and V6, therefore STEMI alert was also called by EMS. Patient was also notably hypertensive with blood pressures of 250s over 150s. Upon arrival to the emergency department the patient is awake, nonverbal, follows commands, protecting her airway, is able to move her left arm and left leg, however is unable to move her right arm and right leg. Patient was started on a Cardene drip for suspected intracranial hemorrhage and promptly taken to CT scan. At 8:05 PM case was discussed by with on-call apple sorter Dr. Quarles who agrees that this is most likely an intracranial hemorrhage based on clinical presentation, therefore STEMI alert was not initiated. CT of the head confirmed thalamic bleed with IVH extension. CBC/BMP: 03/06/18 0749 Significant Findings Laboratory Tests Test 03/06/18 07:49 White Blood Count 3.0 TH/MM3 (4.0-11.0) Red Cell Distribution Width 19.0 % (11.6-17.2) Monocytes (%) (Auto) 20.2 % (0.0-8.0) Neutrophils # (Auto) 1.5 TH/MM3 (1.8-7.7) Lymphocytes # (Auto) 0.8 TH/MM3 (1.0-4.8) Imaging Last Impressions Head CT 01/20/18 0000 Signed Impressions: Service Date/Time: Sunday, January 21, 2018 16:13 - CONCLUSION: 1. Small area of encephalomalacia with some surrounding hemorrhage in the left basal ganglia most consistent with an area of hemorrhagic infarct. This is stable compared to previous exams. 2. Cortical atrophy and microvascular ischemic demyelinative change. Timmy Dumas MD Chest X-Ray 01/19/18 0000 Signed Impressions: Service Date/Time: Friday, January 19, 2018 17:12 - CONCLUSION: Trace left base atelectasis. Hu Henderson MD Gastrostomy Tube Placement 01/18/18 0000 Signed Impressions: Service Date/Time: January 16:41 - CONCLUSION: Uncomplicated gastrostomy tube replacement through an existing tract. Timmy Dumas MD Brain MRI 01/11/18 0000 Signed Impressions: Service Date/Time: January 08:45 - CONCLUSION: 1. Focal area of restricted diffusion in the left thalmus characteristic of an acute to subacute infarct. 2. GRE images demonstrate subacute hemorrhage associated with the infarct in the left thalamus. 3. GRE images also demonstrate punctate areas of microhemorrhage noted in the deep right mid parietal lobe, right occipital lobe and bilateral basal ganglia regions, left greater than right. 4. Diffuse bilateral cortical atrophy and chronic white matter changes. Luciano Morales MD Abdomen/Pelvis CT 01/09/18 0000 Signed Impressions: Service Date/Time: Tuesday, January 09, 2018 18:48 - CONCLUSION: 1. There is a sacral decubitus wound/ulcer which extends to the sacrum. Prior MRI demonstrated abnormal sacrum in the inferior aspect of the sacrum and coccyx. There is also presacral edema. These findings are highly suspicious for osteomyelitis. 2. Nonacute findings include 3 mm nonobstructing right renal stone and multi-fibroid uterus. Hu Cuenca MD Sacrum/Coccyx MRI 01/06/18 0000 Signed Impressions: Service Date/Time: Saturday, January 06, 2018 08:30 - CONCLUSION: Large decubitus ulcer posteriorly with not only bony edema and marrow replacement concerning for osteomyelitis but it extends to the presacral fat is well where there is marked enhancement and fluid on the T2-weighted sequences. The coccygeal involvement is at least 3.5 cm in length. Eliud Du MD Abdomen X-Ray 12/13/17 0000 Signed Impressions: Service Date/Time: Wednesday, December 13, 2017 14:17 - CONCLUSION: PEG tube in stomach.. Harry Dumas MD FACR Upper Extremity Ultrasound 11/06/17 0000 Signed Impressions: Service Date/Time: Monday, November 06, 2017 14:17 - CONCLUSION: Normal examination. KLanre Perez MD Pelvis CT 10/13/17 0000 Signed Impressions: Service Date/Time: Friday, October 13, 2017 12:02 - CONCLUSION: 1. Decubitus ulcer with small abscess in the right posterior perineal region measuring 3.1 x 4.6 cm. There is also a small abscess posterior and to the left of the rectum measuring 3.2 x 2.3 cm. Jann Weber MD Neck CTA 04/10/17 0000 Signed Impressions: Service Date/Time: Monday, April 10, 2017 22:28 - CONCLUSION: The internal carotid arteries are normal bilaterally. No significant atherosclerotic disease is noted. Eliud Du MD Head CTA 04/10/17 0000 Signed Impressions: Service Date/Time: Monday, April 10, 2017 22:50 - CONCLUSION: Mild dilatation of the basilar tip without discrete aneurysm. Some narrowing of the left middle cerebral branch after the bifurcation. Prominent left thalamic hemorrhage. Eliud Du MD PE at Discharge GENERAL: Thin female laying in bed. Nonverbal. SKIN: Has large stage IV sacral ulcer with wound vac in place. HEAD: Normocephalic. EYES: No scleral icterus. No injection or drainage. NECK: Supple, trachea midline. CARDIOVASCULAR: Regular rate and rhythm. No murmur appreciated. RESPIRATORY: Breath sounds equal bilaterally. No accessory muscle use. GASTROINTESTINAL: Abdomen soft, non-tender, nondistended. EXTREMITIES: No cyanosis or edema. NEUROLOGICAL: Awake, nonverbal. Responds to simple commands such as closes eyes and hand aviation warfare systems operator. Supervisor Concrete Stone Finishing strength L>R. No obvious facial droop. Pt update on day of discharge Patient remains nonverbal. Following simple commands such as taking deep breath , aviation warfare systems operator strength of left hand. Discussed with RN, no acute concerns. Hospital Course 62-year-old female initially admitted on 04/10/17 after she was found on a bench in a park by bystanders with right sided hemiparesis and leftward gaze. She had a blood pressure of 250s/150s and was diagnosed with hemorrhagic stroke upon arrival with CT showing acute thalamic and intraventricular hemorrhage on the left with rightward midline shift. She was admitted to ICU. Patient did not show much improvement throughout admission with persistent right hemiplegia and aphasia. She had multiple repeat head CTs for questionable new neurological deficits. Questionable new facial droop on 01/10; Brain MRI 01/11 showed acute to subacute left thalamic infarct with mild hemorrhagic component in patient with previous history of relatively large left thalamic CVA. Neuro and neurosurgery consulted; no surgical intervention was ever performed. Neurosurgery cleared for pharmacologic prophylaxis. The patient failed multiple swallow evals and a PEG tube was placed on 05/08/17. She has been tolerating tube feeds. Poor prognosis. Palliative care followed throughout admission. She was very difficult placement secondary to homeless status prior to admission. After 331 days of hospitalization, she was eventually discharged to [facility]. Her hospitalization was complicated by other diagnosis as below. UTI: Ctx growing Enterobacter aerogenes. Patient received Levaquin x 14 days (-01/16). Infectious disease suspects Cruz related infection. Repeat urinalysis 02/23 showed Yenifer albicans, staph epidermidis. Continue Bactrim ( stop date 03/08) and Diflucan for 2 weeks (stop date 03/11). Cruz catheter placed. Stage IV sacral pressure ulcer: MRI showing bony edema and marrow replacement concerning for osteomyelitis; ID following. Wound care following, S/P bedside debridement. Has wound VAC in place now. Continue current wound care per wound care recommendations. Dysphagia: Due to hemorrhagic stroke as above. Status post PEG placement on 02/20. Continue tube feedings. HTN: Continue nifedipine 40 mg Q6H, Apresoline 50 mg Q6H, Metoprolol 100 mg BID , HCTZ 25 mg Daily. Vasotec IV PRN, Clonidine PRN Hyperglycemia: Glucerna for tube feeds. Follow blood sugars intermittently Xeroderma on bilateral feet: Lac-Hydrin 12% Lotion continued Depression: Continue Lexapro 10 mg via PEG daily Nutrition: Tube feeds changed to Glucerna 1.5 , bolus feeding with Tyshawn DVT Prophylaxis: Heparin sq (cleared by neurosurgery) Pt Condition on Discharge: Stable Discharge Disposition: Discharge to SNF Discharge Time: > 30 minutes Discharge Instructions DIET: Follow Instructions for: On Tube Feeding Activities you can perform: Regular-No Restrictions Follow up Referrals: PCP Follow-up - 2-3 Days New Medications: Fluconazole Liq (Diflucan Liq) 10 Mg/Ml Susp 150 MG PEG DAILY for Infection for 5 Days, ML 0 Refills Arginine/Glutamine/Calcium Bmb (Tyshawn Packet) 7 Gram-7 Gram-1.5 Gram Powd.pack 1 PACK G-TUBE BID for Nutritional Supplement for 30 Days, #60 PKT Cholestyramine (Cholestyramine) 4 Gm/Pkt Powd 4 GM PEG Q8HR for Bowel Management for 30 Days, #90 PKT 1 packet contains 4 grams of cholestyramine. Collagenase (Santyl) 250 Unit/Gram Oin 1 APPLIC TOPICAL DAILY for wound for 30 Days, TUBE Escitalopram (Escitalopram) 10 Mg Tab 10 MG PEG DAILY for Depression Control for 30 Days, #30 TAB Hydralazine HCl (Hydralazine HCl) 50 Mg Tablet 50 MG PEG Q8HR for Blood Pressure Management for 30 Days, #30 TAB Hydrochlorothiazide (Hydrochlorothiazide) 25 Mg Tab 25 MG PEG DAILY for Blood Pressure Management for 30 Days, #30 TAB Lactobacillus Acidophilus (Acidophilus/l-Sporogenes) 35 Million Cell-25 Million Cell Tab 1 TAB PEG TID for Bowel Management for 30 Days, #90 TAB Lansoprazole ODT (Prevacid Solutab ODT) 30 Mg Tab 30 MG G-TUBE DAILY for Manage Heartburn for 30 Days, #30 TAB Mix with 4 ml water before giving via tube. Metoprolol Tartrate (Metoprolol Tartrate) 25 Mg Tab 25 MG PEG BID for Regulate Heart Beat for 30 Days, #60 TAB Nifedipine (Nifedipine) 20 Mg Cap 40 MG PEG Q8HR for Blood Pressure Management for 30 Days, #90 CAP Tramadol (Ultram) 50 Mg Tab 50 MG PEG Q12H PRN for pain for 3 Days, #6 TAB [Free Water] () 1 ML FLUSH 200 ML PEG Q6HR for Nutritional Supplement for 30 Days [Silver Nitrate Applicators] () 1 APPL APPL 1 APPL TOPICAL MoWeFr for wound for 30 Days [Sulfamet-Trimet 800-160 Mg Liq] () 20 ML SUSP 20 ML PEG Q12HR for UTI for 1 Day Discontinued Medications: Lisinopril (Lisinopril) 10 Mg Tab 10 MG PO DAILY, #30 TAB 0 Refills Myra Sifuentes PA-C March 07, 2018 12:20 pm
--- NOTE | 2018-03-07 13:33 | PD.WCN.NOT ---
Wound Consult Description: Coccyx Communicated with: [facility] 4th floor [facility] Additional Information: Patient seen on 4th floor [facility] for silver nitrate treatment before d/c to rehab.Patient was positioned with total assistance of film writer and AVIONICS INTEGRATION ENGINEER to L side for wound VAC dressing removal. Removed wound VAC dressing including 1 long strip of black granufoam to reveal wound. Wound was cleansed with normal saline and gauze pad.Packed wound loosely with dakin's 0.125% soaked gauze and left in place for ~5 minutes before removing. Cleansed wound with normal saline again. Silver nitrate was then applied Epibole wound margins. Removed excess silver nitrate with normal saline. Saline moistened gauze was then packed loosely in wound bed. Calazime skin protectant paste was applied in a thin layer to periwound partial thickness skin loss. Skin barrier film was sprayed to intact skin before covering wound with bordered gauze. Wound VAC dressing to be reapplied at rehab center. Romelia Liz [facility] March 07, 2018 13:33
[2018-03-07] MEDS: hydrALAZINE HCL 25 MG TAB PEG PRN (13:46)
[2018-03-07] MEDS: FLUCONAZOLE 400 MG PREMIX BAG 200 ML IV SCH (13:47)
[2018-03-07] MEDS: SILVER NITR/POTASSIUM NITRATE APPLICATORS TOPICAL SCH (13:47)
== END 2018-03-07 14:50 | DRG 64 ==
LOC: NEPE 19:54 → EDBD 20:54 → NEDA 20:54 → MERGE 20:54 → N03B 23:12 → N05B 04-24 10:48 → PH5A 05-25 19:45 → PH3A 07-13 15:58 → PH3B 11-15 16:04 → H4EN 12-04 14:45
PROVIDERS: ADMIT Hospitalist; ATTEND Hospitalist
PROC: 0DB68ZX Excision of Stomach, Via Natural or Artificial Opening Endoscopic, Diagnostic (ICD-10-PCS; 2017-05-08)
PROC: 0DH63UZ Insertion of Feeding Device into Stomach, Percutaneous Approach (ICD-10-PCS; 2017-05-08 14:53)
PROC: 0HBRXZZ Excision of Toe Nail, External Approach (ICD-10-PCS; principal; 2017-08-01)
PROC: 0HBRXZZ Excision of Toe Nail, External Approach (ICD-10-PCS; 2017-08-01)
PROC: 0HBRXZZ Excision of Toe Nail, External Approach (ICD-10-PCS; 2017-08-01)
PROC: 0HBRXZZ Excision of Toe Nail, External Approach (ICD-10-PCS; 2017-08-01)
PROC: 0HBRXZZ Excision of Toe Nail, External Approach (ICD-10-PCS; 2017-08-01)
PROC: 0HD6XZZ Extraction of Back Skin, External Approach (ICD-10-PCS; 2017-10-17)
PROC: 0D20XUZ Change Feeding Device in Upper Intestinal Tract, External Approach (ICD-10-PCS; 2018-01-18)
DX: I61.5 Nontraumatic intracerebral hemorrhage, intraventricular (principal); A41.9 Sepsis, unspecified organism; Z99.11 Dependence on respirator [ventilator] status; G93.41 Metabolic encephalopathy; N17.9 Acute kidney failure, unspecified; E87.0 Hyperosmolality and hypernatremia; L89.150 Pressure ulcer of sacral region, unstageable; G81.91 Hemiplegia, unspecified affecting right dominant side; B37.0 Candidal stomatitis; K61.1 Rectal abscess; N39.0 Urinary tract infection, site not specified; R47.01 Aphasia; I16.1 Hypertensive emergency; L02.215 Cutaneous abscess of perineum; M86.9 Osteomyelitis, unspecified; G91.3 Post-traumatic hydrocephalus, unspecified; L89.154 Pressure ulcer of sacral region, stage 4; D70.9 Neutropenia, unspecified; E87.8 Other disorders of electrolyte and fluid balance, not elsewhere classified; R13.12 Dysphagia, oropharyngeal phase; Z78.1 Physical restraint status; E86.0 Dehydration; B35.1 Tinea unguium; I10 Essential (primary) hypertension; I61.8 Other nontraumatic intracerebral hemorrhage; R29.810 Facial weakness; K21.0 Gastro-esophageal reflux disease with esophagitis; B96.20 Unspecified Escherichia coli [E. coli] as the cause of diseases classified elsewhere; B96.1 Klebsiella pneumoniae [K. pneumoniae] as the cause of diseases classified elsewhere; K29.50 Unspecified chronic gastritis without bleeding; R73.9 Hyperglycemia, unspecified; E87.6 Hypokalemia; F01.50 Vascular dementia, unspecified severity, without behavioral disturbance, psychotic disturbance, mood disturbance, and anxiety; F32.9 Major depressive disorder, single episode, unspecified; M21.371 Foot drop, right foot; M21.372 Foot drop, left foot; M62.569 Muscle wasting and atrophy, not elsewhere classified, unspecified lower leg; Z51.5 Encounter for palliative care; Z59.0 Homelessness; Z91.14 Patient's other noncompliance with medication regimen; N89.8 Other specified noninflammatory disorders of vagina; B96.5 Pseudomonas (aeruginosa) (mallei) (pseudomallei) as the cause of diseases classified elsewhere; Z87.440 Personal history of urinary (tract) infections; D64.9 Anemia, unspecified
CPT/HCPCS: 49440; 70450; 70496; 70498; 70553; 71010; 71045; 72193; 72197; 74000; 74018; 74177; 76937; 80048; 80053; 80061; 80069; 80074; 80076; 80202; 80307; 81001; 82040; 82550; 82565; 82607; 82746; 82948; 83036; 83605; 83735; 84100; 84132; 84134; 84155; 84439; 84443; 84466; 84484; 85007; 85014; 85018; 85025; 85027; 85610; 85652; 85730; 86403; 87040; 87070; 87077; 87086; 87186; 87205; 87210; 87491; 87493; 87591; 87641; 87804; 88305; 88312; 93005; 93971; 99291; A9579; C1769; C1894; J0360; J0690; J0692; J0696; J1170; J1200; J1450; J1644; J1885; J1956; J2270; J2543; J2765; J3370; J3480; J7030; J7040; J7050; J7512; Q9963; Q9967

== ENCOUNTER 2018-03-19 22:57 | Emergency (ER) | payer MEDICAID, OTHER ==
[~2018-03-19 22:57] MED LIST changes: +CHOL4POW4 PEG; +COLL30T TOPICAL; +ESCI10TA PEG; +FLUC10S PEG; +Free Water PEG; +HYDR-3800 PEG; +HYDR25TA5 PEG; +JUVEPOW3 G-TUBE; +LACT PEG; -LISI10TA3 PO; +METO25TA3 PEG; +NIFE20 PEG; +PREV30TA3 G-TUBE; +SILVER NITRATE APPLICATORS TOPICAL; +Sulfamet-Trimet 800-160 Mg Liq PEG; +TRAM50 PEG
[2018-03-19 23:05] VITALS: BP 99/69; PULSE 89; RESP 16; TEMP 98; O2SAT 100
--- NOTE | 2018-03-19 23:37 | PD ---
HPI Chief Complaint: Complaint Time Seen by Provider: 23:32 Travel History International Travel<30 days: No Contact w/Intl Traveler<30days: No Traveled to known affect area: No History of Present Illness HPI 62-year-old female presents to the emergency department from local correction for evaluation of gross hematuria noted in urinary catheter collection bag. This is new onset and patient is also noted to be hypotensive. Patient has history of left thalamic hemorrhage due to hypertensive emergency 04/10/17 and was managed for intracranial bleed malignant hypertension delusional disorder unspecified psychosis right hemiparesis dysphasia and aphasia bedbound with PEG tube placement and no anticoagulant therapy use. Patient was discharged from the hospital as recently as 03/11/18. Patient has done fairly well at nursing facility until today. No report of fever. No report of vomiting. Patient is unable to relay history. PFSH Past Medical History Narrative Medical CVA intracranial bleed RI sacral decubitus ulcer; nursing notes reviewed Cardiovascular Problems: Yes (stemi) Cerebrovascular Accident: Yes (icp) Diminished Hearing: No Hypertension: Yes Psychiatric: Yes (psychotic d/o nos) Immunizations Current: No Schizophrenia: Yes (schizophrenia spectrum disorder) Social History Alcohol Use: No (UTO) Tobacco Use: No (UTO) Substance Use: No (UTO) Allergies-Medications (Allergen,Severity, Reaction): Coded Allergies: No Known Allergies (Verified Adverse Reaction, Unknown, 03/19/18) Reported Meds & Prescriptions Reported Meds & Active Scripts Active Santyl (Collagenase) 250 Unit/Gram Oin 1 Applic TOPICAL DAILY 30 Days Acidophilus/l-Sporogenes (Lactobacillus Acidophilus) 35 Million Cell-25 Million Cell Tab 1 Tab PEG TID 30 Days Prevacid Solutab ODT (Lansoprazole) 30 Mg Tab 30 Mg G-TUBE DAILY 30 Days Mix with 4 ml water before giving via tube. Hydrochlorothiazide 25 Mg Tab 25 Mg PEG DAILY 30 Days Tyshawn Packet (Arginine/Glutamine/Calcium Bmb) 7 Gram-7 Gram-1.5 Gram Powd.pack 1 Pack G-TUBE BID 30 Days Escitalopram (Escitalopram Oxalate) 10 Mg Tab 10 Mg PEG DAILY 30 Days Ultram (Tramadol HCl) 50 Mg Tab 50 Mg PEG Q12H PRN 3 Days Nifedipine 20 Mg Cap 40 Mg PEG Q8HR 30 Days Metoprolol Tartrate 25 Mg Tab 25 Mg PEG BID 30 Days Hydralazine HCl 50 Mg Tablet 50 Mg PEG Q8HR 30 Days Cholestyramine 4 Gm/Pkt Powd 4 Gm PEG Q8HR 30 Days 1 packet contains 4 grams of cholestyramine. Reported Glucerna 1.0 Norman/Fiber (Nutritional Supplements) 1 Liq Liq 1.5 Narrative Medication Vancomycin Review of Systems ROS Limitations: Clinical Condition Except as stated in HPI: all other systems reviewed are Neg Physical Exam Narrative GENERAL: Well-developed elderly female in no acute respiratory distress aphasic. SKIN: Warm and dry. HEAD: Normocephalic. EYES: No scleral icterus. No injection or drainage. NECK: Supple, trachea midline. No JVD or lymphadenopathy. CARDIOVASCULAR: Regular rate and rhythm without murmurs, gallops, or rubs. RESPIRATORY: Breath sounds equal bilaterally. No accessory muscle use. GASTROINTESTINAL: Abdomen soft, non-tender, nondistended. PEG tube in place. : Urinary catheter in place with urinary bag containing dark bloody urine without clots MUSCULOSKELETAL: No cyanosis, or edema. BACK: Nontender without obvious deformity. No CVA tenderness. Data Data Last Documented VS Vital Signs Date Time Temp Pulse Resp B/P (MAP) Pulse Ox O2 Delivery O2 Flow Rate FiO2 03/20/18 07:42 03/20/18 01:14 86 16 100 Room Air 03/19/18 23:05 98.0 Orders Orders Complete Blood Count With Diff (03/19/18 23:32) Basic Metabolic Panel (Bmp) (03/19/18 23:32) Urinalysis - C+S If Indicated (03/19/18 23:32) Ecg Monitoring (03/19/18 23:32) Iv Access Insert/Monitor (03/19/18 23:32) Sodium Chloride 0.9% Flush (Ns Flush) (03/19/18 23:45) Electrocardiogram (03/19/18 ) Troponin I (03/19/18 23:32) Prothrombin Time / Inr (Pt) (03/19/18 23:32) Act Partial Throm Time (Ptt) (03/19/18 23:32) Sodium Chlor 0.9% 250 Ml Inj (Ns 250 Ml (03/19/18 23:45) Urine Culture (03/20/18 01:52) Sodium Chlor 0.9% 250 Ml Inj (Ns 250 Ml (03/20/18 02:30) Blood Culture (03/20/18 02:27) Lactic Acid (03/20/18 02:27) Ondansetron Odt (Zofran Odt) (03/20/18 02:30) Ceftriaxone Inj (Rocephin Inj) (03/20/18 02:30) Ed Discharge Order (03/20/18 04:12) Labs Laboratory Tests Test 03/20/18 00:22 03/20/18 01:52 03/20/18 02:45 03/20/18 03:23 White Blood Count 6.9 TH/MM3 Red Blood Count 4.49 MIL/MM3 Hemoglobin 12.1 GM/DL Hematocrit 36.9 % Mean Corpuscular Volume 82.3 FL Mean Corpuscular Hemoglobin 27.0 PG Mean Corpuscular Hemoglobin Concent 32.7 % Red Cell Distribution Width 17.9 % Platelet Count 393 TH/MM3 Mean Platelet Volume 8.0 FL Neutrophils (%) (Auto) 69.2 % Lymphocytes (%) (Auto) 16.4 % Monocytes (%) (Auto) 10.6 % Eosinophils (%) (Auto) 3.3 % Basophils (%) (Auto) 0.5 % Neutrophils # (Auto) 4.7 TH/MM3 Lymphocytes # (Auto) 1.1 TH/MM3 Monocytes # (Auto) 0.7 TH/MM3 Eosinophils # (Auto) 0.2 TH/MM3 Basophils # (Auto) 0.0 TH/MM3 CBC Comment DIFF FINAL Differential Comment Prothrombin Time 10.1 SEC Prothromb Time International Ratio 1.0 RATIO Activated Partial Thromboplast Time 21.7 SEC Urine Color RED Urine Turbidity HAZY Urine pH 6.0 Urine Specific [place] 1.021 Urine Protein 30 mg/dL Urine Glucose (UA) NEG mg/dL Urine Ketones NEG mg/dL Urine Occult Blood LARGE Urine Nitrite NEG Urine Bilirubin NEG Urine Urobilinogen LESS THAN 2.0 MG/DL Urine Leukocyte Esterase LARGE Urine RBC /hpf Urine WBC 143 /hpf Urine Squamous Epithelial Cells 2 /hpf Microscopic Urinalysis Comment CULTURE INDICATED Lactic Acid Level 1.2 mmol/L Blood Urea Nitrogen 52 MG/DL Creatinine 0.45 MG/DL Random Glucose 86 MG/DL Calcium Level 8.9 MG/DL Sodium Level 139 MEQ/L Potassium Level 4.0 MEQ/L Chloride Level 104 MEQ/L Carbon Dioxide Level 29.2 MEQ/L Anion Gap 6 MEQ/L Estimat Glomerular Filtration Rate 170 ML/MIN Troponin I LESS THAN 0.02 NG/ML MDM Medical Decision Making Medical Screen Exam Complete: Yes Emergency Medical Condition: Yes Medical Record Reviewed: Yes Interpretation(s) EKG normal sinus rhythm rate 88 left atrial enlargement LVH by voltage criterion QS septally age indeterminate CBC & BMP Diagram 03/20/18 00:22 03/20/18 03:23 Calcium Level 8.9 trop I: Less than 0.02, not elevated Urinalysis innumerable red blood cells 143 white blood cells culture indicated Differential Diagnosis Hematuria, catheter dislodgment, UTI, coagulopathy, anemia Narrative Course Urinary catheter assessed and identified to be tied tightly to the lower extremity causing tension on the urinary catheter most likely source of localized trauma site was re-secured and catheter flushed and patient started to pass pink tinged urine. Patient with good urine output. CBC is automated differential stable hemoglobin white count not elevated Urinalysis innumerable red blood cells with 145 white blood cells culture Basic metabolic panel \grossly within normal limit Coagulation studies goes within normal range Troponin I less than 0.02, not elevated Patient's case discussed with on-call medicine service known well to this patient patient is stable no indication for observation admission or admission at this time patient can be returned to nursing facility. Physician Communication Physician Communication discussed with [facility] service Diagnosis Primary Impression: Hematuria Referrals: Primary Care Physician 1 day Patient Instructions: General Instructions Additional Instructions: Continue current medications as presently prescribed Increase fluid hydration Recommend recheck hemoglobin every 6 hours and patient to return to emergency department if change in vital signs or hemoglobin is decreasing or persistent or recurrent hematuria Monitor temperature for fever administer acetaminophen for fever 100.4F or greater Return patient to emergency department for any concerns or change in condition Disposition: 01 DISCHARGE HOME Condition: Stable Ximena Booth MD March 19, 2018 23:37
[2018-03-19] MEDS ORDERED: SODIUM CHLOR 0.9% 250 ML INJ 250 ML IV ONE (23:45)
[2018-03-19] MEDS ORDERED: SODIUM CHLORIDE 0.9% FLUSH 10 ML FLUSH IVF PRN (23:45)
[2018-03-20] MEDS ORDERED: [UNRECOGNIZED DRUG - CODE] (00:10)
[2018-03-20 00:54] LABS: AUTOMATED NEUTROPHIL # 4.7 TH/MM3 (1.8-7.7); BASOPHIL % 0.5 % (0.0-2.0); EOSINOPHIL # 0.2 TH/MM3 (0-0.4); EOSINOPHIL % 3.3 % (0.0-4.0); HEMATOCRIT 36.9 % (35.0-46.0); HEMOGLOBIN 12.1 GM/DL (11.6-15.3); LYMPH % 16.4 % (9.0-44.0); LYMPHOCYTE # 1.1 TH/MM3 (1.0-4.8); MEAN CELL VOLUME 82.3 FL (80.0-100.0); MEAN CORPUSCULAR HGB CONC 32.7 % (32.0-36.0); MONO % 10.6 % (0.0-8.0); MONOCYTE # 0.7 TH/MM3 (0-0.9); NEUT % 69.2 % (16.0-70.0); PLATELET COUNT 393 TH/MM3 (150-450); RED BLOOD COUNT 4.49 MIL/MM3 (4.00-5.30); RED CELL DISTRIBUTION WIDTH 17.9 % (11.6-17.2); WHITE BLOOD COUNT 6.9 TH/MM3 (4.0-11.0)
[2018-03-20 01:09] LABS: PROTHROMBIN TIME - PATIENT 10.1 SEC (9.8-11.6)
[2018-03-20 01:14] VITALS: BP 113/71; PULSE 86; RESP 16; O2SAT 100
[2018-03-20 02:20] LABS: BILIRUBIN, URINE NEG (NEG); BLOOD, URINE LARGE (NEG); GLUCOSE,URINE NEG (NEG); KETONE, URINE NEG (NEG); NITRITE,URINE NEG (NEG); SQUAMOUS EPITHELIAL CELL URINE 2 /hpf (0-5); URINE COLOR RED (YELLW/STRAW); URINE LEUKOCYTE ESTERASE LARGE (NEG)
[2018-03-20] MEDS ORDERED: ONDANSETRON ODT 4 MG TAB PO ONE (02:30)
[2018-03-20] MEDS ORDERED: cefTRIAXone INJ 1,000 MG in SODIUM CHLORIDE 0.9% INJ 100 ML IV ONE (02:30)
[2018-03-20] MEDS ORDERED: SODIUM CHLOR 0.9% 250 ML INJ 250 ML IV ONE (02:30)
[2018-03-20 04:01] LABS: BICARBONATE 29.2 MEQ/L (21.0-32.0); BLOOD UREA NITROGEN 52 MG/DL (7-18); CALCIUM 8.9 MG/DL (8.5-10.1); CHLORIDE 104 MEQ/L (98-107); CREATININE 0.45 MG/DL (0.50-1.00); GLOMERULAR FILTRATION RATE 170 ML/MIN (>89); GLUCOSE,RANDOM 86 MG/DL (74-106); SODIUM (NA) 139 MEQ/L (136-145)
[2018-03-20 04:05] LABS: TROPONIN I LESS THAN 0.02 NG/ML (0.02-0.05)
--- NOTE | 2018-03-20 18:10 | EKG ---
Date Performed: 03/19/2018 Time Performed: 23:10:36 PTAGE: 62 years EKG: Sinus rhythm POSSIBLE LEFT ATRIAL ENLARGEMENT POSSIBLE LEFT VENTRICULAR HYPERTROPHY POSSIBLE SEPTAL MYOCARDIAL IN FARCTION ABNORMAL ECG PREVIOUS TRACING : 08/30/2016 20.23 Since the previous tracing, no significant change noted DOCTOR: Carla Card Interpretating Date/Time 03/20/2018 18:08:25
== END 2018-03-20 07:43 | disposition home or self-care (01) ==
LOC: NEPC 22:57
DX: R31.0 Gross hematuria (principal); I10 Essential (primary) hypertension; R94.31 Abnormal electrocardiogram [ECG] [EKG]
CPT/HCPCS: 80048; 81001; 83605; 84484; 85025; 85610; 85730; 87040; 87086; 93005; 96361; 96374; 99284; J0696; J7050

== ENCOUNTER 2018-07-06 20:23 | Inpatient (IN) ==
[2018-07-06] MEDS ORDERED: Sod Chloride 0.9% Inj 1,000 ML IV.SIG SCH ×3 (20:45→22:15)
[2018-07-06] MEDS ORDERED: Ciprofloxacin 400 MG/200 ML 400 MG/200 ML PIGGYBACK IV.SIG ONE (20:52)
--- NOTE | 2018-07-06 21:05 | ED ---
HPI General Chief complaint: Weakness Stated complaint: Medical/TSN Time Seen by Provider: 07/06/18 20:26 Source: EMS, old records reviewed and other (report from [facility]) Mode of arrival: EMS Limitations: other (Patient cannot provide history chronically due to chronic medical issue (stroke)) History of Present Illness HPI Narrative: 63-year-old female the presents to the ED for evaluation of hypotension as well as what appears to be C. difficile. 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 Most of the history is obtained from the paperwork and the report that the jail gave us. Patient cannot really tell me if she has pain or not. Per report she had blood work done today that showed that she had C. difficile as well as a bandemia on her CBC. She apparently had 2 doses of Flagyl started today. Apparently through the day patient was found to be hypotensive in the 80s and 70s systolic. Patient chronically runs in the 130s. Patient was brought here for evaluation of possible sepsis. Patient also has a decubitus ulcer which per report was going to get up VAC placed for it but did not get it as she was transferred here. patient takes multiple BP meds but none given today. Related Data Allergies Allergy/AdvReac Type Severity Reaction Status Date / Time No Known Allergies Allergy Verified 07/06/18 20:47 Review of Systems ROS Unobtainable ROS Unobtainable: unobtainable due to mental condition and unobtainable due to mental status PMFSH History History Provided By: Medical Record and Information Coder / EMT Social History Social History Recent Travel in [facility] within the Last 8 Weeks: No Recent Out of Country Travel within the Last 8 Weeks: No Exam Narrative Exam Narrative: GENERAL: Anorexic but well groomed SKIN: Focused skin assessment warm/dry. Patient has 7 x 5 cm decubitus ulcer on the sacral area. About 1 cm deep with fatty tissue as well as what appears to be muscle showing. HEAD: Atraumatic. Normocephalic. EYES: Pupils equal and round. No scleral icterus. No injection or drainage. ENT: No nasal bleeding or discharge. Mucous membranes pink and moist. Tongue is midline. No uvula deviation. NECK: Trachea midline. No JVD. CARDIOVASCULAR: Regular rate and rhythm. No murmur appreciated. RESPIRATORY: No accessory muscle use. Clear to auscultation. Breath sounds equal bilaterally. GASTROINTESTINAL: Abdomen soft, non-tender, nondistended. Hepatic and splenic margins not palpable. Patient has a PEG tube. MUSCULOSKELETAL: No obvious deformities. No clubbing. No cyanosis. No edema. Patient has obvious paralysis of the left side of the body with rigors of the left arm and left leg. NEUROLOGICAL: Awake and alert. No obvious cranial nerve deficits. Motor grossly within normal limits. Normal speech. PSYCHIATRIC: Appropriate mood and affect; insight and judgment normal. Course Initial Documented Vital Signs Pulse Rate 94 H 07/06/18 20:35 Respiratory Rate 20 07/06/18 20:35 Blood Pressure 85/59 L 07/06/18 20:35 Pulse Oximetry 98 07/06/18 20:35 Last Documented Vital Signs Pulse Rate 94 H 07/06/18 20:35 Respiratory Rate 20 07/06/18 20:35 Blood Pressure 85/59 L 07/06/18 20:35 Pulse Oximetry 98 07/06/18 20:35 Medical Decision Making MDM Narrative Medical decision making narrative: 63-year-old female that presents to the ED for evaluation of hypotension and possible C. difficile. Patient was properly examined and was found to have signs and symptoms concerning for sepsis. Possibly from the C. difficile the patient has not been diagnosed with. Labs and imaging were ordered here. Patient was started on fluids. Patient was hypotensive in the 80s here. Labs and imaging here showed what appears to be sepsis. Patient does appear to be dehydrated. At this time I recommend admission for further evaluation. My attending Dr. Lai was made aware of findings and agrees with plan. Case discussed with Dr. Marsh who agrees to admission. Medical Screen Exam Complete: Yes Emergency Medical Condition: Yes Differential Diagnosis Differential Diagnosis: Sepsis versus hypotension versus C. difficile versus infected ulcer Medical Records Medical records reviewed: Yes I reviewed the patient's medical records. Lab Data Lab results reviewed: Yes I reviewed the patient's lab results. Result diagrams: 07/06/18 21:00 07/06/18 21:00 Lab Results 07/06/18 07/06/18 07/06/18 Range/Units 21:00 21:00 21:00 WBC 8.6 (4.0-11.0) th/mm3 RBC 4.67 (4.00-5.30) mil/mm3 Hgb 11.9 (11.6-15.3) gm/dL Hct 36.7 (35.0-46.0) % MCV 78.6 L (80.0-100.0) fL MCH 25.6 L (27.0-34.0) pg MCHC 32.5 (32.0-36.0) % RDW 17.7 H (11.6-17.2) % Plt Count 455 H (150-450) th/mm3 MPV 10.1 (7.0-11.0) fL Prelim Diff (Auto) Slide review pending WBC Differential Manual diff final Seg Neuts % (Manual) 57 (16-70) % Band Neuts % (Manual) 29 H (0-6) % Lymphocytes % (Manual) 4 L (9-44) % Monocytes % (Manual) 9 H (0-8) % Basophils % (Manual) 1 (0-2) % Abs Neuts (Manual) 7.4 (1.8-7.7) th/mm3 Differential Comment . Platelet Estimate High H (Normal) Platelet Morphology Normal (Normal) Ovalocytes 1+ H (None) PT 11.1 (9.8-11.6) sec INR 1.1 Ratio APTT 23.9 L (24.3-30.1) sec Sodium 150 H (136-145) meq/L Potassium 5.5 H (3.5-5.1) meq/L Chloride 114 H (98-107) meq/L Carbon Dioxide 27.2 (21.0-32.0) meq/L Anion Gap 9 (5-15) meq/L BUN 179 H (7-18) mg/dL Creatinine 1.46 H (0.50-1.00) mg/dL Estimated GFR 44 L (>89) mL/min Random Glucose 131 H (74-106) mg/dL Lactic Acid (0.4-2.0) mmol/L Calcium 7.6 L (8.5-10.1) mg/dL Magnesium 4.4 H (1.5-2.5) mg/dL Total Bilirubin 0.2 (0.2-1.0) mg/dL AST 27 (15-37) U/L ALT 26 (10-53) U/L Alkaline Phosphatase 49 (45-117) U/L Total Protein 6.3 L (6.4-8.2) g/dL Albumin 1.9 L (3.4-5.0) g/dL 07/06/18 Range/Units 21:05 WBC (4.0-11.0) th/mm3 RBC (4.00-5.30) mil/mm3 Hgb (11.6-15.3) gm/dL Hct (35.0-46.0) % MCV (80.0-100.0) fL MCH (27.0-34.0) pg MCHC (32.0-36.0) % RDW (11.6-17.2) % Plt Count (150-450) th/mm3 MPV (7.0-11.0) fL Prelim Diff (Auto) WBC Differential Seg Neuts % (Manual) (16-70) % Band Neuts % (Manual) (0-6) % Lymphocytes % (Manual) (9-44) % Monocytes % (Manual) (0-8) % Basophils % (Manual) (0-2) % Abs Neuts (Manual) (1.8-7.7) th/mm3 Differential Comment Platelet Estimate (Normal) Platelet Morphology (Normal) Ovalocytes (None) PT (9.8-11.6) sec INR Ratio APTT (24.3-30.1) sec Sodium (136-145) meq/L Potassium (3.5-5.1) meq/L Chloride (98-107) meq/L Carbon Dioxide (21.0-32.0) meq/L Anion Gap (5-15) meq/L BUN (7-18) mg/dL Creatinine (0.50-1.00) mg/dL Estimated GFR (>89) mL/min Random Glucose (74-106) mg/dL Lactic Acid 2.3 H (0.4-2.0) mmol/L Calcium (8.5-10.1) mg/dL Magnesium (1.5-2.5) mg/dL Total Bilirubin (0.2-1.0) mg/dL AST (15-37) U/L ALT (10-53) U/L Alkaline Phosphatase (45-117) U/L Total Protein (6.4-8.2) g/dL Albumin (3.4-5.0) g/dL Imaging Data Attestation: I personally reviewed and interpreted this imaging study as follows : Radiologist's impression: Chest X-Ray 07/06/18 20:33 CONCLUSION: No acute cardiopulmonary process. ECG Data Attestation: I personally reviewed and interpreted this ECG as follows: Interpretation: EKG shows sinus rhythm with no sign of acute ischemia and arrhythmia. Ventricular rate of 91 bpm, IA interval of [address] elevations. Read by me and attending. Discharge Plan Discharge Disposition Patient Disposition: 30 Still Patient Discharge Details Diagnosis: Sepsis, C. difficile diarrhea, Decubitus ulcer Physicians Team ED Provider: Jevon Bustillos ED Midlevel Provider: Fabricio Shafer Primary Care Provider: UNKNOWN, Attending Provider: Sujata Marsh Status ED Status: Admitted Patient
[2018-07-06 21:37] LABS: Hematocrit 36.7 % (35.0-46.0); Hemoglobin 11.9 gm/dL (11.6-15.3); Mean Corpuscular HGB Conc 32.5 % (32.0-36.0); Mean Corpuscular Hemoglobin 25.6 pg (27.0-34.0); Mean Corpuscular Volume 78.6 fL (80.0-100.0); Mean Platelet Volume 10.1 fL (7.0-11.0); Platelet Count 455 th/mm3 (150-450); Red Blood Count 4.67 mil/mm3 (4.00-5.30); Red Cell Distribution Width 17.7 % (11.6-17.2); White Blood Count 8.6 th/mm3 (4.0-11.0)
[2018-07-06 21:51] LABS: Activated Partial Thrombo Time 23.9 sec (24.3-30.1); INR 1.1 Ratio; Prothrombin Time 11.1 sec (9.8-11.6)
[2018-07-06 22:05] LABS: Alanine Aminotransferase 26 U/L (10-53); Albumin 1.9 g/dL (3.4-5.0); Anion Gap 9 meq/L (5-15); Aspartate Aminotransferase 27 U/L (15-37); Calcium 7.6 mg/dL (8.5-10.1); Carbon Dioxide 27.2 meq/L (21.0-32.0); Chloride 114 meq/L (98-107); Glomerular Filtration Rate 44 mL/min (>89); Glucose,Random 131 mg/dL (74-106); Magnesium 4.4 mg/dL (1.5-2.5); Potassium 5.5 meq/L (3.5-5.1); Sodium 150 meq/L (136-145)
[2018-07-06 22:08] LABS: Lymphocytes 4 % (9-44); Monocytes 9 % (0-8)
[2018-07-06 22:09] LABS: Ovalocytes 1+; Platelet Morphology Normal (Normal)
[2018-07-06 22:10] LABS: Alkaline Phosphatase 49 U/L (45-117); Total Protein 6.3 g/dL (6.4-8.2)
[2018-07-06 22:11] LABS: Blood Urea Nitrogen 179 mg/dL (7-18)
--- NOTE | 2018-07-06 22:13 | XR ---
EXAM DATE: 07/06/2018 9:29 PM EDT AGE/SEX: 63 years / Female INDICATIONS: Fever. CLINICAL DATA: This is the patient's initial encounter. Patient reports that signs and symptoms have been present for 1 day and indicates a pain score of Nonresponsive. MEDICAL/SURGICAL HISTORY: Non-responsive. Non-responsive. COMPARISON: [facility] – [place], CHEST SINGLE AP, 01/19/2018. . FINDINGS: A single AP view of the chest demonstrates the lungs to be symmetrically aerated without evidence of mass, infiltrate or effusion. The cardiomediastinal contours are unremarkable. Spurs are seen in the thoracic spine. CONCLUSION: No acute cardiopulmonary process. Electronically signed by: Hu Newman MD 07/06/2018 10:12 PM EDT
[2018-07-06] MEDS ORDERED: Acetaminophen 325 MG Tablet PO PRN (22:57)
[2018-07-06] MEDS ORDERED: Bisacodyl 10 MG Supp RECTAL PRN (22:57)
--- NOTE | 2018-07-06 23:01 | P.HPIM ---
History of Present Illness Primary Care Physician: UNKNOWN History of Present Illness: This is a 63-year-old female with a PMH of HTN, C Diff and CVA w/ residual hemiparesis/aphasia who was sent to the ER from SNF due to hypotension w/ BP 72/ 58 and bandemia on outpatient labs. Unable to obtain history from patient as she is non-verbal at baseline. Per records, pt diagnosed w/ C Diff on 07/06/18 and started on Flagyl, outpatient labs w/ significant bandemia, today noted to be hypotensive w/ BP 70's. On arrival, BP 85/59, HR 94, O2 sat 98% on RA, Afebrile. Creatinine 1.46, previously 0.45 on 03/20/2018. Lactic Acid 2.3. WBC normal however significant bandemia of 29%. UA pending. CXR with no acute findings. S/p Cipro/Flagyl in ER. - Diagnosis (1) C. difficile colitis (2) Bandemia (3) BECKY (acute kidney injury) (4) CVA (cerebral vascular accident) (5) Hypotension Inpatient Certification: I certify that the inpatient services were ordered in accordance with Medicare regulations governing the order. This includes certification that hospital inpatient services are reasonable and necessary and in the case of services not specified as inpatient-only under 42 CFR 419.22(n), that they are appropriately provided as inpatient services in accordance to with the 2-midnight benchmark under 43 CFR 412.3(e) Estimated Total Length of Stay (Days): 2 Plans for Post Hospital Care: Not yet determined Review of Systems PAST FAMILY HISTORY: Unable to obtain unobtainable due to mental status PMF - History History Provided By: Medical Record, Front End Drupal Developer / EMT - Travel History Recent Travel in the [place] Within the Last 8 Weeks: No Recent Travel Out of the Country Within the Last 8 Weeks: No Medications and Allergies Active Medications: Active Medications Sodium Chloride (Ns Inj) 1,000 mls @ 0 mls/hr IV.SIG .Q0M SUNSHINE Sodium Chloride (Ns Inj) 1,000 mls @ 0 mls/hr IV.SIG .Q0M SUNSHINE Sodium Chloride (Ns Inj) 1,000 mls @ 0 mls/hr IV.SIG BOLUS SUNSHINE Allergies Allergy/AdvReac Type Severity Reaction Status Date / Time No Known Allergies Allergy Verified 07/06/18 20:47 Exam Vital signs: Vital Signs 07/06/18 20:35 Pulse Rate 94 H Respiratory Rate 20 Blood Pressure 85/59 L Pulse Oximetry 98 Intake & Output 07/06/18 07/06/18 07/07/18 06:59 18:59 06:59 Weight 52.404 kg Narrative: PE: GENERAL: Middle-aged black female in no acute distress, non-verbal. SKIN: Focused skin assessment warm and dry. Sacral decubitus present at admission. HEENT: PERRLA, EOMI. No scleral icterus or conjunctival pallor. No lid lag or facial droop. CARDIOVASCULAR: Regular rate and rhythm. No obvious murmurs to auscultation. No chest tenderness to palpation. RESPIRATORY: No obvious rhonchi or wheezing. Clear to auscultation. Breath sounds equal bilaterally. GASTROINTESTINAL: Abdomen soft, non-tender, nondistended. BS normal. PEG tube in place. MUSCULOSKELETAL: Extremities without clubbing, cyanosis, or edema. No obvious deformities. NEUROLOGICAL: Awake, alert, non-verbal, not following commands. Left hemiparesis , No new focal neurologic deficits. Moving both upper and lower extremities spontaneously. PSYCHIATRIC: Unable to assess as pt non-verbal. Results - Labs CBC & Chem 7: 07/06/18 21:00 07/06/18 21:00 Labs: Short CBC 07/06/18 Range/Units 21:00 WBC 8.6 (4.0-11.0) th/mm3 Hgb 11.9 (11.6-15.3) gm/dL Hct 36.7 (35.0-46.0) % Plt Count 455 H (150-450) th/mm3 BMP 07/06/18 21:00 Sodium 150 H Potassium 5.5 H Chloride 114 H Carbon Dioxide 27.2 BUN 179 H Creatinine 1.46 H Calcium 7.6 L Liver Function 07/06/18 Range/Units 21:00 Total Bilirubin 0.2 (0.2-1.0) mg/dL AST 27 (15-37) U/L ALT 26 (10-53) U/L Alkaline Phosphatase 49 (45-117) U/L Albumin 1.9 L (3.4-5.0) g/dL - Imaging Impressions Chest X-Ray 07/06/18 20:33 CONCLUSION: No acute cardiopulmonary process. Caprini VTE Risk Assessment Caprini VTE Risk Assessment: No/Low Risk (score <= 1) Caprini Risk Assessment Model: Point Value = 1 Point Value = 2 Point Value = 3 Point Value = 5 Age 41-60 Minor surgery BMI > 25 kg/m2 Swollen legs Varicose veins or History of unexplained or recurrent spontaneous Oral contraceptives or hormone replacement Sepsis (< 1 month) Serious lung disease, including pneumonia (< 1 month) Abnormal pulmonary function Acute myocardial infarction Congestive heart failure (< 1 month) History of inflammatory bowel disease Medical patient at bed rest Age 61-74 Arthroscopic surgery Major open surgery (> 45 min) Laparoscopic surgery (> 45 min) Malignancy Confined to bed (> 72 hours) Immobilizing plaster cast Central venous access Age >= 75 History of VTE Family history of VTE Factor V Leiden Prothrombin [id number] Lupus anticoagulant Anticardiolipin antibodies Elevated serum homocysteine Heparin-induced thrombocytopenia Other congenital or acquired thrombophilia Stroke (< 1 month) Elective arthroplasty Hip, pelvis, or leg fracture Acute spinal cord injury (< 1 month) Prophylaxis Regimen: Total Risk Factor Score Risk Level Prophylaxis Regimen 0-1 Low Early ambulation 2 Moderate Order ONE of the following: *Sequential Compression Device (SCD) *Heparin 5000 units SQ BID 3-4 Higher Order ONE of the following medications: *Heparin 5000 units SQ TID *Enoxaparin/Lovenox 40 mg SQ daily (WT < 150 kg, CrCl > 30 mL/min) *Enoxaparin/Lovenox 30 mg SQ daily (WT < 150 kg, CrCl > 10-29 mL/min) *Enoxaparin/Lovenox 30 mg SQ BID (WT < 150 kg, CrCl > 30 mL/min) AND/OR *Sequential Compression Device (SCD) 5 or more Highest Order ONE of the following medications: *Heparin 5000 units SQ TID (Preferred with Epidurals) *Enoxaparin/Lovenox 40 mg SQ daily (WT < 150 kg, CrCl > 30 mL/min) *Enoxaparin/Lovenox 30 mg SQ daily (WT < 150 kg, CrCl > 10-29 mL/min) *Enoxaparin/Lovenox 30 mg SQ BID (WT < 150 kg, CrCl > 30 mL/min) AND *Sequential Compression Device (SCD) Assessment and Plan - Assessment (1) C. difficile colitis Code(s): A04.72 - Enterocolitis due to Clostridium difficile, not specified as recurrent Status: Acute (2) Bandemia Code(s): D72.825 - Bandemia Status: Acute (3) BECKY (acute kidney injury) Code(s): N17.9 - Acute kidney failure, unspecified Status: Acute (4) CVA (cerebral vascular accident) Code(s): I63.9 - Cerebral infarction, unspecified Status: Acute (5) Hypotension Code(s): I95.9 - Hypotension, unspecified Status: Acute - Plan A/P: 1. C Diff Colitis: recent diagnosis at [facility] w/ C diff on 07/06/18 per records, + ongoing diarrhea, continue w/ Flagyl PO. Isolation. 2. Bandemia: Band 29%, afebrile, no leukocytosis, U/a pending, CXR w/ no acute findings, images reviewed, likely due to C Diff, continue w/ antibiotics as above, repeat labs in am. 3. BECKY: Creatinine 1.46, previously 0.45 on 03/20/2018, likely secondary to significant dehydration from colitis, IVF for hydration, monitor I/O, repeat labs in a.m. 4. CVA: h/o CVA w/ residual left-sided hemiparesis and aphasia, at baseline, no new neurologic deficits noted. 5. Hypotension: Transient, BP 70's at [facility], 80's systolic upon arrival, now improved after IVF, will monitor closely, hold antihypertensive medications. 6. DVT Prophylaxis: SCD/Teds 7. Social work for d/c planning as needed 8. Case discussed w/ ER physician at length, labs/records/imaging reviewed by me.
[2018-07-07 01:40] LABS: Bacteria,Urine Many /hpf; Bilirubin,Urine Negative (Negative); Clarity,Urine Turbid (Clear); Color,Urine Yellow (Yellw/Straw); Glucose,Urine (UA) Negative (Negative); Leukocyte Esterase,Urine Large (Negative); Nitrite,Urine Positive (Negative); Specific Gravity,Urine 1.015 (1.002-1.035); Triple Phosphate Crystal,Urine Many /hpf
[2018-07-07 03:16] LABS: Baso % (Auto) 0.1 % (0.0-2.0); Eos # (Auto) 0.1 th/mm3 (0.0-0.4); Eos % (Auto) 0.9 % (0.0-4.0); Hematocrit 36.4 % (35.0-46.0); Hemoglobin 11.3 gm/dL (11.6-15.3); Lymph # (Auto) 0.8 th/mm3 (1.0-4.8); Lymph % (Auto) 13.3 % (9.0-44.0); Mean Corpuscular HGB Conc 31.1 % (32.0-36.0); Mean Corpuscular Hemoglobin 25.2 pg (27.0-34.0); Mean Platelet Volume 9.6 fL (7.0-11.0); Mono # (Auto) 0.6 th/mm3 (0.0-0.9); Mono % (Auto) 10.6 % (0.0-8.0); Neut # (Auto) 4.3 th/mm3 (1.8-7.7); Neut % (Auto) 75.1 % (16.0-70.0); Platelet Count 414 th/mm3 (150-450); Red Blood Count 4.49 mil/mm3 (4.00-5.30); Red Cell Distribution Width 18.1 % (11.6-17.2); White Blood Count 5.8 th/mm3 (4.0-11.0)
[2018-07-07 03:33] LABS: Albumin 1.8 g/dL (3.4-5.0); Calcium 7.1 mg/dL (8.5-10.1); Potassium 4.5 meq/L (3.5-5.1); Total Protein 5.7 g/dL (6.4-8.2)
[2018-07-07] MEDS: Sod Chloride 0.9% Inj 1,000 ML IV.CONT SCH ×3 (03:36→20:45)
[2018-07-07 03:52] LABS: Lymphocytes 4 % (9-44); Monocytes 4 % (0-8)
[2018-07-07 03:53] LABS: Ovalocytes 1+; Platelet Estimate Normal (Normal); Platelet Morphology Normal (Normal); Target Cells 1+
[2018-07-07] MEDS: metroNIDAZOLE 500 MG Tablet PO SCH ×2 (06:00→15:30)
[2018-07-07] MEDS ORDERED: Senna/Docusate Sodium 8.6/50 MG Tablet PO SCH (09:00)
[2018-07-07] MEDS ORDERED: Ciprofloxacin 400 MG/200 ML 400 MG/200 ML PIGGYBACK IV.SIG SCH (09:00)
[2018-07-07] MEDS ORDERED: metroNIDAZOLE 500 MG Tablet G-TUBE SCH (14:54)
--- NOTE | 2018-07-07 15:08 | P.PNIM ---
Subjective Interval history: Patient is nonverbal. She appears comfortable. Appears at baseline (I know her from previous hospitalization). Following for improvemet in diarrhea and ensured resolution of dehydration. Physical Exam Vital signs: Vital Signs 07/06/18 20:35 07/06/18 21:00 07/06/18 21:20 Temperature 97.8 F Pulse Rate 94 H 88 88 Respiratory Rate 20 20 20 Blood Pressure 85/59 L 81/58 L 87/60 L Pulse Oximetry 98 97 97 07/06/18 22:00 07/06/18 23:00 07/07/18 00:15 Temperature Pulse Rate 90 96 H 92 H Respiratory Rate 19 18 20 Blood Pressure 96/63 L 86/61 L 104/69 Pulse Oximetry 96 96 97 07/07/18 01:48 07/07/18 04:00 07/07/18 08:00 Temperature 97.3 F L 97.6 F 98.9 F Pulse Rate 107 H 105 H 117 H Respiratory Rate 18 18 18 Blood Pressure 90/64 L 90/68 L 99/63 L Pulse Oximetry 90 L 96 97 07/07/18 12:00 Temperature 97.8 F Pulse Rate 107 H Respiratory Rate 18 Blood Pressure 101/56 L Pulse Oximetry 97 Intake & Output 07/06/18 07/07/18 07/07/18 18:59 06:59 18:59 Intake Total 0 / 0 4500 / 4500 Output Total 1200 / 1200 Balance -1200 / -1200 4500 / 4500 Weight 51.3 kg Intake: IV 4500 / 4500 NS Inj 1,000 ML @ 100 mls/hr IV 1000 / 1000 .CONT .Q10H SUNSHINE Rx#:[id number] Cipro 400 MG/200 ML Inj 400 mg 400 / 400 In 200 ml @ 200 mls/hr IV.SIG Q12H SUNSHINE Rx#:[id number] NS Inj 1,000 ML @ Wide Open IV. 3000 / 3000 SIG .Q0M SUNSHINE Rx#:[id number] Flagyl 500 MG Inj 100 ML @ 100 100 / 100 mls/hr IV.SIG ONCE ONE Rx#: [id number] Oral 0 / 0 Output: Urine 550 / 550 Urine Amount (Catheter) 650 / 650 Indwelling Urethral Catheter 650 / 650 Other: Date of Last Bowel Movement 07/07/18 07/07/18 # Bowel Movements 3 Weight On Admission 51.3 kg Narrative: GENERAL: NAD, A&Ox0, nonverbal HEAD: Normocephalic. NECK: Supple, trachea midline. No lymphadenopathy. EYES: No scleral icterus. No injection or drainage. CARDIOVASCULAR: Regular rate and rhythm without murmurs, gallops, or rubs. RESPIRATORY: Breath sounds equal bilaterally. No accessory muscle use. GASTROINTESTINAL: Abdomen soft, non-tender, nondistended. No erythema at tube feed site. MUSCULOSKELETAL: No cyanosis, or edema. SKIN: Warm and dry. NEURO: Global neurological deficits. - Urinary Catheter Management Indwelling Urethral Catheter Cath placed during this visit: no Results - Labs CBC & Chem 7: 07/07/18 03:05 07/07/18 03:05 Laboratory Results - last 24 hr 07/06/18 07/06/18 07/06/18 21:00 21:00 21:00 WBC 8.6 RBC 4.67 Hgb 11.9 Hct 36.7 MCV 78.6 L MCH 25.6 L MCHC 32.5 RDW 17.7 H Plt Count 455 H MPV 10.1 Prelim Diff (Auto) Slide review pending Neut % (Auto) Lymph % (Auto) [place] % (Auto) Eos % (Auto) Baso % (Auto) Neut # (Auto) Lymph # (Auto) [place] # (Auto) Eos # (Auto) Baso # (Auto) WBC Differential Manual diff final Seg Neuts % (Manual) 57 Band Neuts % (Manual) 29 H Lymphocytes % (Manual) 4 L Monocytes % (Manual) 9 H Basophils % (Manual) 1 Abs Neuts (Manual) 7.4 Differential Comment . Platelet Estimate High H Platelet Morphology Normal Target Cells Ovalocytes 1+ H PT 11.1 INR 1.1 APTT 23.9 L Sodium 150 H Potassium 5.5 H Chloride 114 H Carbon Dioxide 27.2 Anion Gap 9 BUN 179 H Creatinine 1.46 H Estimated GFR 44 L Random Glucose 131 H Lactic Acid Calcium 7.6 L Prot Corrected Calcium Magnesium 4.4 H Total Bilirubin 0.2 AST 27 ALT 26 Alkaline Phosphatase 49 Total Protein 6.3 L Albumin 1.9 L Urine Color Urine Clarity Urine pH Ur Specific [place] Urine Protein Urine Glucose (UA) Urine Ketones Urine Occult Blood Urine Nitrate Urine Bilirubin Urine Urobilinogen Ur Leukocyte Esterase Urine RBC Urine WBC Triple Phos Crystals Urine Bacteria Micro UA Comment Ur Microscopic Review Urine Culture Comments St C. diff Tox Epid 027 C. difficile Tox (PCR) 07/06/18 07/06/18 07/06/18 21:05 23:30 23:30 WBC RBC Hgb Hct MCV MCH MCHC RDW Plt Count MPV Prelim Diff (Auto) Neut % (Auto) Lymph % (Auto) [place] % (Auto) Eos % (Auto) Baso % (Auto) Neut # (Auto) Lymph # (Auto) [place] # (Auto) Eos # (Auto) Baso # (Auto) WBC Differential Seg Neuts % (Manual) Band Neuts % (Manual) Lymphocytes % (Manual) Monocytes % (Manual) Basophils % (Manual) Abs Neuts (Manual) Differential Comment Platelet Estimate Platelet Morphology Target Cells Ovalocytes PT INR APTT Sodium Potassium Chloride Carbon Dioxide Anion Gap BUN Creatinine Estimated GFR Random Glucose Lactic Acid 2.3 H Calcium Prot Corrected Calcium Magnesium Total Bilirubin AST ALT Alkaline Phosphatase Total Protein Albumin Urine Color Yellow Urine Clarity Turbid H Urine pH 9.0 H Ur Specific [place] 1.015 Urine Protein 30 H Urine Glucose (UA) Negative Urine Ketones Negative Urine Occult Blood Small H Urine Nitrate Positive H Urine Bilirubin Negative Urine Urobilinogen Less than 2 Ur Leukocyte Esterase Large H Urine RBC 10 H Urine WBC 43 H Triple Phos Crystals Many H Urine Bacteria Many H Micro UA Comment Cath-culture ind Ur Microscopic Review Not Reportable Urine Culture Comments Cath-cult indicated St C. diff Tox Epid 027 Positive H C. difficile Tox (PCR) Positive H 07/07/18 07/07/18 07/07/18 03:05 03:05 03:05 WBC 5.8 RBC 4.49 Hgb 11.3 L Hct 36.4 MCV 81.0 MCH 25.2 L MCHC 31.1 L RDW 18.1 H Plt Count 414 MPV 9.6 Prelim Diff (Auto) Slide review pending Neut % (Auto) 75.1 H Lymph % (Auto) 13.3 [place] % (Auto) 10.6 H Eos % (Auto) 0.9 Baso % (Auto) 0.1 Neut # (Auto) 4.3 Lymph # (Auto) 0.8 L [place] # (Auto) 0.6 Eos # (Auto) 0.1 Baso # (Auto) 0.0 WBC Differential Manual diff final Seg Neuts % (Manual) 82 H Band Neuts % (Manual) 10 H Lymphocytes % (Manual) 4 L Monocytes % (Manual) 4 Basophils % (Manual) Abs Neuts (Manual) 5.3 Differential Comment . Platelet Estimate Normal Platelet Morphology Normal Target Cells 1+ H Ovalocytes 1+ H PT INR APTT Sodium 155 H Potassium 4.5 D Chloride 121 H Carbon Dioxide 24.0 Anion Gap 10 BUN 133 H Creatinine 1.08 H Estimated GFR 62 L Random Glucose 104 Lactic Acid 1.7 Calcium 7.1 L* Prot Corrected Calcium 7.8 L Magnesium Total Bilirubin 0.2 AST 27 ALT 24 Alkaline Phosphatase 42 L Total Protein 5.7 L D Albumin 1.8 L Urine Color Urine Clarity Urine pH Ur Specific [place] Urine Protein Urine Glucose (UA) Urine Ketones Urine Occult Blood Urine Nitrate Urine Bilirubin Urine Urobilinogen Ur Leukocyte Esterase Urine RBC Urine WBC Triple Phos Crystals Urine Bacteria Micro UA Comment Ur Microscopic Review Urine Culture Comments St C. diff Tox Epid 027 C. difficile Tox (PCR) Microbiology 07/06/18 21:05 Blood - Peripheral Aerobic Blood Culture - Preliminary No growth in 1 day 07/06/18 21:05 Blood - Peripheral Anaerobic Blood Culture - Preliminary No growth in 1 day 07/06/18 21:00 Blood - Peripheral Aerobic Blood Culture - Preliminary No growth in 1 day 07/06/18 21:00 Blood - Peripheral Anaerobic Blood Culture - Preliminary No growth in 1 day 07/06/18 20:30 Wound - Decubitis Gram Stain - Final - Imaging Impressions Chest X-Ray 07/06/18 20:33 CONCLUSION: No acute cardiopulmonary process. Assessment and Plan - Assessment (1) C. difficile colitis Code(s): A04.72 - Enterocolitis due to Clostridium difficile, not specified as recurrent Status: Acute (2) Bandemia Code(s): D72.825 - Bandemia Status: Acute (3) BECKY (acute kidney injury) Code(s): N17.9 - Acute kidney failure, unspecified Status: Acute (4) CVA (cerebral vascular accident) Code(s): I63.9 - Cerebral infarction, unspecified Status: Acute (5) Hypotension Code(s): I95.9 - Hypotension, unspecified Status: Acute - Plan 63 year old female with a history of hemorrhagic CVA and severe chronic neurological deficit, admitted with diarrhea from C. Diff. Sepsis Improving Continue follow vital signs C Diff Colitis Leukocytosis PEG Vancomycin Isolation Follow for improvement Dehydration BECKY Follow renal function Avoid nephrotoxins IV Hydration continued Hypotension Treat dehydration Hx of Hemorrhagic CVA Chronic severe neurological deficits Supportive Care DVT Prophylaxis SCDs
--- NOTE | 2018-07-07 15:23 | ECG ---
Date Performed: 07/06/2018 Time Performed: 21:51:15 PTAGE: 63 years EKG: Sinus rhythm POOR INITAL ANTERIOR FORCES V1 AND V2, MAY BE NORMAL VARIANT NONSPECIFIC ST-T CHANGES INFEROLATERALL Y Compared to previous tracing, ST-T changes inferiorly are new. ABNORMAL ECG PREVIOUS TRACING : 03/19/2018 23.10 DOCTOR: Devon Rowe Interpretating Date/Time 07/07/2018 15:21:09
[2018-07-07] MEDS: Lactobacillus Acidophilus/L. Spores Tablet G-TUBE SCH (18:17)
[2018-07-08] MEDS: Sod Chloride 0.9% Inj 1,000 ML IV.CONT SCH (06:12)
[2018-07-08 07:28] LABS: Baso % (Auto) 0.1 % (0.0-2.0); Eos # (Auto) 0.1 th/mm3 (0.0-0.4); Eos % (Auto) 1.2 % (0.0-4.0); Hematocrit 33.2 % (35.0-46.0); Hemoglobin 10.8 gm/dL (11.6-15.3); Lymph # (Auto) 0.9 th/mm3 (1.0-4.8); Mean Corpuscular HGB Conc 32.4 % (32.0-36.0); Mean Platelet Volume 9.6 fL (7.0-11.0); Mono # (Auto) 0.7 th/mm3 (0.0-0.9); Mono % (Auto) 7.7 % (0.0-8.0); Neut # (Auto) 7.2 th/mm3 (1.8-7.7); Platelet Count 438 th/mm3 (150-450); Red Blood Count 4.15 mil/mm3 (4.00-5.30); Red Cell Distribution Width 17.6 % (11.6-17.2); White Blood Count 8.9 th/mm3 (4.0-11.0)
[2018-07-08] MEDS: Lactobacillus Acidophilus/L. Spores Tablet G-TUBE SCH ×3 (08:00→17:35)
[2018-07-08 08:02] LABS: Alanine Aminotransferase 29 U/L (10-53); Albumin 1.8 g/dL (3.4-5.0); Alkaline Phosphatase 66 U/L (45-117); Anion Gap 9 meq/L (5-15); Aspartate Aminotransferase 36 U/L (15-37); Blood Urea Nitrogen 80 mg/dL (7-18); Calcium 7.6 mg/dL (8.5-10.1); Carbon Dioxide 23.9 meq/L (21.0-32.0); Chloride 131 meq/L (98-107); Glomerular Filtration Rate 72 mL/min (>89); Glucose,Random 107 mg/dL (74-106); Potassium 4.1 meq/L (3.5-5.1); Total Protein 5.9 g/dL (6.4-8.2)
[2018-07-08 08:17] LABS: Sodium 164 meq/L (136-145)
[2018-07-08 10:41] LABS: Lymphocytes 9 % (9-44); Monocytes 5 % (0-8); Myelocytes 1 % (0-0)
[2018-07-08 10:42] LABS: Platelet Estimate Normal (Normal); Platelet Morphology Normal (Normal); Toxic Granulation 1+
--- NOTE | 2018-07-08 10:58 | P.PNIM ---
Subjective Interval history: Electrolyte disturbance remains. Signs of sepsis or result. Patient nonverbal. History from patient not available. Physical Exam Vital signs: Vital Signs 07/07/18 12:00 07/07/18 16:00 07/07/18 20:21 Temperature 97.8 F 97.4 F L 98.1 F Pulse Rate 107 H 115 H 109 H Respiratory Rate 18 18 17 Blood Pressure 101/56 L 105/62 111/66 Pulse Oximetry 97 94 L 98 07/08/18 00:02 07/08/18 08:00 Temperature 97.7 F 99.4 F Pulse Rate 113 H 112 H Respiratory Rate 17 16 Blood Pressure 99/71 L 107/73 Pulse Oximetry 97 97 Intake & Output 07/07/18 07/08/18 07/08/18 18:59 06:59 18:59 Intake Total 4500 / 4500 1000 / 1000 Output Total 1300 / 1300 1000 / 1000 Balance 3200 / 3200 0 / 0 Weight 52.4 kg Intake: IV 4500 / 4500 1000 / 1000 NS Inj 1,000 ML @ 100 mls/hr IV 1000 / 1000 1000 / 1000 .CONT .Q10H [facility] Rx#:[id number] Cipro 400 MG/200 ML Inj 400 mg 400 / 400 In 200 ml @ 200 mls/hr IV.SIG Q12H [facility] Rx#:[id number] NS Inj 1,000 ML @ Wide Open IV. 3000 / 3000 SIG .Q0M [facility] Rx#:[id number] Flagyl 500 MG Inj 100 ML @ 100 100 / 100 mls/hr IV.SIG ONCE ONE Rx#: [id number] Oral 0 / 0 Output: Urine 1000 / 1000 Urine Amount (Catheter) 1300 / 1300 Indwelling Urethral Catheter 1300 / 1300 Other: Date of Last Bowel Movement 07/07/18 07/07/18 # Bowel Movements 2 Narrative: GENERAL: NAD, A&Ox0, nonverbal HEAD: Normocephalic. NECK: Supple, trachea midline. No lymphadenopathy. EYES: No scleral icterus. No injection or drainage. CARDIOVASCULAR: Regular rate and rhythm without murmurs, gallops, or rubs. RESPIRATORY: Breath sounds equal bilaterally. No accessory muscle use. GASTROINTESTINAL: Abdomen soft, non-tender, nondistended. No erythema at tube feed site. MUSCULOSKELETAL: No cyanosis, or edema. SKIN: Warm and dry. NEURO: Global neurological deficits. - Urinary Catheter Management Indwelling Urethral Catheter Cath placed during this visit: no Results - Labs CBC & Chem 7: 07/08/18 06:35 07/08/18 06:35 Laboratory Results - last 24 hr 07/08/18 07/08/18 07/08/18 06:35 06:35 08:08 WBC 8.9 RBC 4.15 Hgb 10.8 L Hct 33.2 L MCV 80.0 MCH 26.0 L MCHC 32.4 RDW 17.6 H Plt Count 438 MPV 9.6 Prelim Diff (Auto) Slide review pending Neut % (Auto) 81.0 H Lymph % (Auto) 10.0 [place] % (Auto) 7.7 Eos % (Auto) 1.2 Baso % (Auto) 0.1 Neut # (Auto) 7.2 Lymph # (Auto) 0.9 L [place] # (Auto) 0.7 Eos # (Auto) 0.1 Baso # (Auto) 0.0 WBC Differential Manual diff final Seg Neuts % (Manual) 64 Band Neuts % (Manual) 21 H Lymphocytes % (Manual) 9 Monocytes % (Manual) 5 Myelocytes % (Man) 1 H Abs Neuts (Manual) 7.7 Differential Comment . Toxic Granulation 1+ H Platelet Estimate Normal Platelet Morphology Normal Sodium 164 H* Potassium 4.1 Chloride 131 H D Carbon Dioxide 23.9 Anion Gap 9 BUN 80 H Creatinine 0.95 Estimated GFR 72 L POC Glucose 121 H Random Glucose 107 H Calcium 7.6 L Total Bilirubin 0.2 AST 36 ALT 29 Alkaline Phosphatase 66 Total Protein 5.9 L Albumin 1.8 L Microbiology 07/06/18 23:30 Catheterized Urine Urine Culture - Final 50-100,000 cfu/mL mixed isabel (probable contaminants ) 07/06/18 21:05 Blood - Peripheral Aerobic Blood Culture - Preliminary gram positive cocci 07/06/18 21:05 Blood - Peripheral Anaerobic Blood Culture - Preliminary gram positive cocci 07/06/18 21:00 Blood - Peripheral Aerobic Blood Culture - Preliminary No growth in 1 day 07/06/18 21:00 Blood - Peripheral Anaerobic Blood Culture - Preliminary No growth in 1 day 07/06/18 20:30 Wound - Decubitis Gram Stain - Final Assessment and Plan - Assessment (1) C. difficile colitis Code(s): A04.72 - Enterocolitis due to Clostridium difficile, not specified as recurrent Status: Acute (2) Bandemia Code(s): D72.825 - Bandemia Status: Acute (3) BECKY (acute kidney injury) Code(s): N17.9 - Acute kidney failure, unspecified Status: Acute (4) CVA (cerebral vascular accident) Code(s): I63.9 - Cerebral infarction, unspecified Status: Acute (5) Hypotension Code(s): I95.9 - Hypotension, unspecified Status: Acute - Plan 63 year old female with a history of hemorrhagic CVA and severe chronic neurological deficit, admitted with diarrhea from C. Diff. Diarrhea improving. Sepsis resolved. Continue monitoring electrolytes. Adjust treatments to balance electrolytes. Sepsis Resolved Continue follow vital signs C Diff Colitis Leukocytosis PEG Vancomycin Isolation Follow for improvement Dehydration BECKY Follow renal function Avoid nephrotoxins IV Hydration continued Hypotension Treat dehydration Hx of Hemorrhagic CVA Chronic severe neurological deficits Supportive Care DVT Prophylaxis SCDs
--- NOTE | 2018-07-08 11:10 | P.DIET ---
Nutritional Evaluation Type of nutrition evaluation: initial Nutrition consult regarding: Tube Feeding Subjective Subjective Comments: Pt is non-verbal at baseline(pt is known to me from previous admission here). Ht of 167.64cm, from previous admission, used for assessment here. Objective - Diagnosis Sepsis, Dehydration, Hypotension, C-Diff - Objective [place] body weight: 59.1 kg % IBW: 87 Body Weight Used for Calculations: Actual (51.3kg(113-lb)) Energy Needs - Lower Range (kCal/kg): 30 Energy Needs - Upper Range (kCal/kg): 35 Lower Limit kCal/kg (kCals): 1,539 Upper Limit kCal/kg (kCals): 1,796 Lower Limit Protein Factor (Grams per Kg): 1.2 Upper Limit Protein Factor (Grams per Kg): 1.5 Lower Protein Needs (Protein): 62 Upper Protein Needs (Protein): 89 Dietitian Reviewed in Medical Record: Curent medications, Intake & Output, Labs , Medical history, Tube feeding, Wound/DTI Diet Order: TF'ing Glucerna 1.5 @ goal rate 50ml/hr Objective Comments: PMH Includes: HTN, CVA w/residual hemiparesis/aphasia, s/p PEG tube placement, recent c-diff diagnosis, Sacral Decubitus present on Admission Labs Include: Glucose 107, POC glucose 121 Meds include: Lactinex Feeding - Current Tube Feeding Tube Feeding Product: Glucerna 1.5 Tube Feeding Rate: 50 Tube Feeding Route: gastrostomy Current kCals Provided by Tube Feedin,800 Current Protein Provided by Tube Feeding (gPRO): 99 Current Free H2O Provided (m/l): 911 Assessment Assessment: Pt is at nutritional risk r/t diagnosis, need for TF'ing and increased needs for wound healing. TF'ing, as ordered, Glucerna 1.5 @ goal rate 50ml/hr provides for pt's assessed needs. Free Water Flushes per MD. Recommendations: 1. TF'ing, as ordered, Glucerna 1.5 @ goal rate 50ml/hr provides for pt's assessed needs 2. Free Water Flushes per MD Dietitian to Monitor: Lab values, Electrolytes, Glucose level, Intake & Output, Tube feeding tolerance, Weight change, Wound/skin status, Medical course
[2018-07-08] MEDS: Sodium Chloride 0.45 % Inj 1,000 ML IV.CONT SCH (11:57)
[2018-07-09 07:33] LABS: Baso % (Auto) 0.1 % (0.0-2.0); Eos # (Auto) 0.2 th/mm3 (0.0-0.4); Eos % (Auto) 2.1 % (0.0-4.0); Hematocrit 32.6 % (35.0-46.0); Hemoglobin 10.4 gm/dL (11.6-15.3); Lymph # (Auto) 1.3 th/mm3 (1.0-4.8); Lymph % (Auto) 14.1 % (9.0-44.0); Mean Corpuscular HGB Conc 31.8 % (32.0-36.0); Mean Corpuscular Hemoglobin 25.8 pg (27.0-34.0); Mean Corpuscular Volume 81.1 fL (80.0-100.0); Mean Platelet Volume 9.8 fL (7.0-11.0); Mono # (Auto) 0.7 th/mm3 (0.0-0.9); Mono % (Auto) 7.6 % (0.0-8.0); Neut # (Auto) 7.1 th/mm3 (1.8-7.7); Neut % (Auto) 76.1 % (16.0-70.0); Platelet Count 386 th/mm3 (150-450); Red Blood Count 4.02 mil/mm3 (4.00-5.30); White Blood Count 9.4 th/mm3 (4.0-11.0)
[2018-07-09 07:49] LABS: Albumin 1.8 g/dL (3.4-5.0); Anion Gap 8 meq/L (5-15); Aspartate Aminotransferase 35 U/L (15-37); Blood Urea Nitrogen 54 mg/dL (7-18); Calcium 7.8 mg/dL (8.5-10.1); Carbon Dioxide 23.2 meq/L (21.0-32.0); Chloride 135 meq/L (98-107); Glomerular Filtration Rate Greater Than 89 mL/min (>89); Glucose,Random 107 mg/dL (74-106); Potassium 4.4 meq/L (3.5-5.1)
[2018-07-09 07:50] LABS: Alanine Aminotransferase 30 U/L (10-53); Alkaline Phosphatase 58 U/L (45-117); Total Protein 5.8 g/dL (6.4-8.2)
[2018-07-09 07:55] LABS: Sodium 166 meq/L (136-145)
[2018-07-09] MEDS: Lactobacillus Acidophilus/L. Spores Tablet G-TUBE SCH ×3 (09:30→19:19)
--- NOTE | 2018-07-09 11:26 | P.PNIM ---
Subjective Interval history: No acute distress. Patient is nonverbal. Diarrhea is slowly improving. Hypernatremia is not yet improved. Signs of dehydration on blood work (BUN elevated relative to creatinine) Physical Exam Vital signs: Vital Signs 07/08/18 12:00 07/08/18 16:00 07/08/18 20:32 Temperature 99.5 F 99.8 F H 98.5 F Pulse Rate 119 H 120 H Respiratory Rate 18 17 17 Blood Pressure 111/76 105/72 123/83 Pulse Oximetry 95 98 95 07/08/18 21:00 07/09/18 00:28 07/09/18 08:00 Temperature 98.0 F 97.9 F Pulse Rate 116 H 112 H 102 H Respiratory Rate 17 17 Blood Pressure 114/86 100/60 Pulse Oximetry 97 98 Intake & Output 07/08/18 07/09/18 07/09/18 18:59 06:59 18:59 Intake Total 1134 / 1134 Output Total 400 / 400 Balance 1134 / 1134 -400 / -400 Weight 52.4 kg Intake: Oral 0 / 0 Tube Feeding 734 / 734 Water Bolus Amount 400 / 400 Output: Urine Amount (Catheter) 400 / 400 Indwelling Urethral Catheter 400 / 400 Other: # Voids 800 Date of Last Bowel Movement 07/08/18 07/08/18 # Bowel Movements 2 1 Narrative: GENERAL: NAD, A&Ox0, nonverbal HEAD: Normocephalic. NECK: Supple, trachea midline. No lymphadenopathy. EYES: No scleral icterus. No injection or drainage. CARDIOVASCULAR: Regular rate and rhythm without murmurs, gallops, or rubs. RESPIRATORY: Breath sounds equal bilaterally. No accessory muscle use. GASTROINTESTINAL: Abdomen soft, non-tender, nondistended. No erythema at tube feed site. MUSCULOSKELETAL: No cyanosis, or edema. SKIN: Warm and dry. NEURO: Global neurological deficits. - Urinary Catheter Management Indwelling Urethral Catheter Cath placed during this visit: no Results - Labs CBC & Chem 7: 07/09/18 06:06 07/09/18 06:06 Laboratory Results - last 24 hr 07/09/18 07/09/18 06:06 06:06 WBC 9.4 RBC 4.02 Hgb 10.4 L Hct 32.6 L MCV 81.1 MCH 25.8 L MCHC 31.8 L RDW 18.0 H Plt Count 386 MPV 9.8 Neut % (Auto) 76.1 H Lymph % (Auto) 14.1 [place] % (Auto) 7.6 Eos % (Auto) 2.1 Baso % (Auto) 0.1 Neut # (Auto) 7.1 Lymph # (Auto) 1.3 [place] # (Auto) 0.7 Eos # (Auto) 0.2 Baso # (Auto) 0.0 WBC Differential . Differential Comment Auto diff final Sodium 166 H* Potassium 4.4 Chloride 135 H Carbon Dioxide 23.2 Anion Gap 8 BUN 54 H Creatinine 0.78 Estimated GFR Greater than 89 Random Glucose 107 H Calcium 7.8 L Total Bilirubin 0.2 AST 35 ALT 30 Alkaline Phosphatase 58 Total Protein 5.8 L Albumin 1.8 L Microbiology 07/06/18 21:00 Blood - Peripheral Aerobic Blood Culture - Preliminary gram positive cocci 07/06/18 21:00 Blood - Peripheral Anaerobic Blood Culture - Preliminary No growth in 3 days 07/06/18 21:05 Blood - Peripheral Aerobic Blood Culture - Final Staphylococcus coag negative 07/06/18 21:05 Blood - Peripheral Anaerobic Blood Culture - Final S. aureus MRSA 07/06/18 20:30 Wound - Decubitis Gram Stain - Final 07/06/18 20:30 Wound - Decubitis Wound Culture - Preliminary S. aureus MRSA Pseudomonas aeruginosa 07/06/18 23:30 Catheterized Urine Urine Culture - Final 50-100,000 cfu/mL mixed isabel (probable contaminants ) Assessment and Plan - Assessment (1) C. difficile colitis Code(s): A04.72 - Enterocolitis due to Clostridium difficile, not specified as recurrent Status: Acute (2) Bandemia Code(s): D72.825 - Bandemia Status: Acute (3) BECKY (acute kidney injury) Code(s): N17.9 - Acute kidney failure, unspecified Status: Acute (4) CVA (cerebral vascular accident) Code(s): I63.9 - Cerebral infarction, unspecified Status: Acute (5) Hypotension Code(s): I95.9 - Hypotension, unspecified Status: Acute - Plan 63 year old female with a history of hemorrhagic CVA and severe chronic neurological deficit, admitted with diarrhea from C. Diff. Hyponatremia remains. IV hydration rate increased. Diarrhea improving. Sepsis resolved. Continue monitoring electrolytes. Adjust treatments to balance electrolytes. Sepsis Resolved Continue follow vital signs Hyponatremia Duration These appears secondary to C. difficile colitis continue IV hydration Follow for improvement C Diff Colitis Leukocytosis PEG Vancomycin Isolation Follow for improvement Dehydration BECKY Follow renal function Avoid nephrotoxins IV Hydration continued Hypotension Treat dehydration Hx of Hemorrhagic CVA Chronic severe neurological deficits Supportive Care DVT Prophylaxis SCDs
[2018-07-09] MEDS: Sodium Chloride 0.45 % Inj 1,000 ML IV.CONT SCH ×2 (19:21→22:46)
[2018-07-10] MEDS: Lactobacillus Acidophilus/L. Spores Tablet G-TUBE SCH ×3 (09:23→17:27)
[2018-07-10] MEDS: Sodium Chloride 0.45 % Inj 1,000 ML IV.CONT SCH (09:32)
--- NOTE | 2018-07-10 11:24 | P.PNIM ---
Subjective Interval history: Work pending for today. Monitoring hypernatremia. No acute distress from this patient. Physical Exam Vital signs: Vital Signs 07/09/18 12:00 07/09/18 16:00 07/09/18 20:00 Temperature 97.3 F L 97.5 F L 98.2 F Pulse Rate 107 H 102 H 115 H Respiratory Rate 17 17 17 Blood Pressure 104/75 101/71 107/76 Pulse Oximetry 99 99 96 07/10/18 00:00 07/10/18 08:00 Temperature 97.1 F L 98.0 F Pulse Rate 112 H 96 H Respiratory Rate 18 17 Blood Pressure 136/90 90/67 L Pulse Oximetry 100 98 Intake & Output 07/09/18 07/10/18 07/10/18 18:59 06:59 18:59 Intake Total 1000 / 1000 Output Total 103 / 103 Balance 897 / 897 Weight 52.4 kg Intake: IV 1000 / 1000 1/2 Normal Saline Inj 1,000 ML 1000 / 1000 @ 75 mls/hr IV.CONT .[id number] [facility] Rx#:[id number] Oral 0 / 0 Output: Urine 100 / 100 Urine/Stool Mix 3 / 3 Other: # Voids 2 Date of Last Bowel Movement 07/09/18 07/09/18 # Bowel Movements 4 Narrative: GENERAL: NAD, A&Ox0, nonverbal HEAD: Normocephalic. NECK: Supple, trachea midline. No lymphadenopathy. EYES: No scleral icterus. No injection or drainage. CARDIOVASCULAR: Regular rate and rhythm without murmurs, gallops, or rubs. RESPIRATORY: Breath sounds equal bilaterally. No accessory muscle use. GASTROINTESTINAL: Abdomen soft, non-tender, nondistended. No erythema at tube feed site. MUSCULOSKELETAL: No cyanosis, or edema. SKIN: Warm and dry. NEURO: Global neurological deficits. - Urinary Catheter Management Indwelling Urethral Catheter Cath placed during this visit: no Reason for continuing: Severe pressure ulcer/wound Results - Labs CBC & Chem 7: 07/09/18 06:06 07/09/18 06:06 Microbiology 07/06/18 20:30 Wound - Decubitis Gram Stain - Final 07/06/18 20:30 Wound - Decubitis Wound Culture - Preliminary S. aureus MRSA Pseudomonas aeruginosa 07/06/18 21:00 Blood - Peripheral Aerobic Blood Culture - Preliminary Staphylococcus coag negative Pseudomonas aeruginosa 07/06/18 21:00 Blood - Peripheral Anaerobic Blood Culture - Preliminary No growth in 4 days 07/06/18 21:05 Blood - Peripheral Aerobic Blood Culture - Final Staphylococcus coag negative 07/06/18 21:05 Blood - Peripheral Anaerobic Blood Culture - Final S. aureus MRSA Assessment and Plan - Assessment (1) C. difficile colitis Code(s): A04.72 - Enterocolitis due to Clostridium difficile, not specified as recurrent Status: Acute (2) Bandemia Code(s): D72.825 - Bandemia Status: Acute (3) BECKY (acute kidney injury) Code(s): N17.9 - Acute kidney failure, unspecified Status: Acute (4) CVA (cerebral vascular accident) Code(s): I63.9 - Cerebral infarction, unspecified Status: Acute (5) Hypotension Code(s): I95.9 - Hypotension, unspecified Status: Acute - Plan 63 year old female with a history of hemorrhagic CVA and severe chronic neurological deficit, admitted with diarrhea from C. Diff. Monitoring for improvement in diarrhea and sodium levels. IV hydration. Follow renal function and follow for signs of dehydration. Diarrhea improving. Sepsis resolved. Continue monitoring electrolytes. Adjust treatments to balance electrolytes. Labs ordered for further monitoring. Sepsis Resolved Continue follow vital signs Hyponatremia Duration These appears secondary to C. difficile colitis continue IV hydration Follow for improvement C Diff Colitis Leukocytosis PEG Vancomycin Isolation Follow for improvement Dehydration BECKY Follow renal function Avoid nephrotoxins IV Hydration continued Hypotension Treat dehydration Hx of Hemorrhagic CVA Chronic severe neurological deficits Supportive Care DVT Prophylaxis SCDs
[2018-07-10 12:23] LABS: Baso % (Auto) 0.3 % (0.0-2.0); Eos # (Auto) 0.3 th/mm3 (0.0-0.4); Hematocrit 34.6 % (35.0-46.0); Hemoglobin 10.8 gm/dL (11.6-15.3); Lymph # (Auto) 1.1 th/mm3 (1.0-4.8); Lymph % (Auto) 16.2 % (9.0-44.0); Mean Corpuscular HGB Conc 31.1 % (32.0-36.0); Mean Corpuscular Hemoglobin 25.3 pg (27.0-34.0); Mean Corpuscular Volume 81.3 fL (80.0-100.0); Mean Platelet Volume 8.8 fL (7.0-11.0); Mono # (Auto) 0.5 th/mm3 (0.0-0.9); Mono % (Auto) 7.8 % (0.0-8.0); Neut # (Auto) 4.9 th/mm3 (1.8-7.7); Neut % (Auto) 71.7 % (16.0-70.0); Platelet Count 382 th/mm3 (150-450); Red Blood Count 4.26 mil/mm3 (4.00-5.30); Red Cell Distribution Width 18.2 % (11.6-17.2); White Blood Count 6.8 th/mm3 (4.0-11.0)
[2018-07-10 12:56] LABS: Alanine Aminotransferase 37 U/L (10-53); Albumin 1.8 g/dL (3.4-5.0); Alkaline Phosphatase 52 U/L (45-117); Anion Gap 8 meq/L (5-15); Aspartate Aminotransferase 37 U/L (15-37); Blood Urea Nitrogen 42 mg/dL (7-18); Calcium 7.6 mg/dL (8.5-10.1); Carbon Dioxide 24.8 meq/L (21.0-32.0); Chloride 137 meq/L (98-107); Glomerular Filtration Rate Greater Than 89 mL/min (>89); Glucose,Random 115 mg/dL (74-106); Potassium 4.6 meq/L (3.5-5.1); Total Protein 5.7 g/dL (6.4-8.2)
[2018-07-10 13:06] LABS: Sodium 170 meq/L (136-145)
[2018-07-10] MEDS: Dextrose 5% in Water Inj 1,000 ML IV.CONT SCH (14:23)
[2018-07-10] MEDS ORDERED: Dextrose 50% in Water 50 ML Vial IV.PUSH PRN (15:22)
--- NOTE | 2018-07-10 15:43 | P.PNWCN ---
Wound Care Nurse Consult Description: Received pressure ulcer wound management consult from Doctor Timmy Cano for stage IV decub 4cm x 4cm x 3 cm. Communicated with: Doctor Timmy Cano and Radha Becker holland Recommendation: Please cleanse wound with normal saline and pat dry. Pack wound with Maxorb extra AG loosely and cover with bordered gauze change daily or PRN for saturation or dislodgement. Please place consult for wound Care physician and Doctor Garcia will see patient on . Please obtain [place] [facility] bed or if unavailable please obtain K4 bed for patient. Turn patient every 2 hours from L side to R side. Limit time on back to P.T. Wound/Pressure Injury - Patient Status Premedicated for Pain Prior to Dressing Change: No - Wound Coccyx Wound Staging: Stage IV Wound Assessment: Ongoing Wound Type: Pressure Injury Is This a Chronic Wound: Yes Requested from Provider a Wound Care Consult: Yes Length: 6 (~6cm) Width: 6 (~6cm) Depth: 2.3 (~2.3cm) Wound Bed Appearance: Red, Tunneling/Undermining (Undermining is noted from 7 to 3 o'clock deepest at 7 o'clock measurinmg ~3.1cm), White, Yellow Wound Bed Appearance: Wound bed presents with ~70% red non granulation tissue,~20 % bone and ~10% adipose . Wound drainage is moderate Surrounding Tissue Appearance: Erythema Surrounding Tissue Temperature: Warm Drainage Description: Serosanguinous Drainage Amount: Moderate Drainage Odor: Slight Odor Dressing Status: Changed Cleansing Solution: Saline Wound Packing Type: Alginate (maxorb extra AG) Cover Dressing: Bordered gauze Wound Dressing Change Date: 07/10/18 Wound Margin Description: Wound margins are noted with thickened edges and some epibole. - Additional Information Patient seen on for stage IV decub wound management consult. Patient has been seen on previous admission for same wound. Patient is a total assist. Turned patient to L side and removed saturated dressing in place to sacrococcygeal area to reveal open wound to coccyx. Wound measurements and descriptions are noted above. Cleaned wound with normal saline and patted dry. Periwound presents with scattered partial thickness skin loss that is moisture related. Patient has a rectal bag in place for fecal management that is peeling off. Feces noted in rectal bag present as liquid and brown. Patient could benefit from Dignisheild. Do not recommend wound VAc at this time due to presence of loose stool and periwound skin breakdown. Packed wound to coccyx loosely with Maxorb extra AG and applied Calazime skin protectant paste to periwound. Skin barrier film was then applied to intact skin before securing bordered gauze in place over wound.
[2018-07-10 17:06] LABS: Bacteria,Urine Many /hpf; Bilirubin,Urine Negative (Negative); Clarity,Urine Turbid (Clear); Color,Urine Yellow (Yellw/Straw); Glucose,Urine (UA) Negative (Negative); Hyaline Casts,Urine 61 /lpf (0-3); Leukocyte Esterase,Urine Small (Negative); Mucus,Urine Many /lpf (Occasional); Nitrite,Urine Positive (Negative); Specific Gravity,Urine 1.022 (1.002-1.035); Triple Phosphate Crystal,Urine Many /hpf
[2018-07-10] MEDS: Insulin NovoLOG Aspart Correctional Sugar Inj SQ SCH ×2 (17:26→21:00)
[2018-07-11] MEDS: Dextrose 5% in Water Inj 1,000 ML IV.CONT SCH ×2 (03:48→17:21)
[2018-07-11 08:18] LABS: Baso % (Auto) 0.5 % (0.0-2.0); Eos # (Auto) 0.3 th/mm3 (0.0-0.4); Eos % (Auto) 3.6 % (0.0-4.0); Hematocrit 30.7 % (35.0-46.0); Hemoglobin 9.7 gm/dL (11.6-15.3); Lymph # (Auto) 1.4 th/mm3 (1.0-4.8); Lymph % (Auto) 16.8 % (9.0-44.0); Mean Corpuscular HGB Conc 31.5 % (32.0-36.0); Mean Corpuscular Hemoglobin 25.4 pg (27.0-34.0); Mean Corpuscular Volume 80.7 fL (80.0-100.0); Mean Platelet Volume 9.2 fL (7.0-11.0); Mono # (Auto) 0.6 th/mm3 (0.0-0.9); Mono % (Auto) 7.2 % (0.0-8.0); Neut # (Auto) 5.9 th/mm3 (1.8-7.7); Neut % (Auto) 71.9 % (16.0-70.0); Platelet Count 296 th/mm3 (150-450); Red Blood Count 3.81 mil/mm3 (4.00-5.30); Red Cell Distribution Width 18.1 % (11.6-17.2); White Blood Count 8.2 th/mm3 (4.0-11.0)
[2018-07-11 08:53] LABS: Alanine Aminotransferase 34 U/L (10-53); Albumin 1.8 g/dL (3.4-5.0); Alkaline Phosphatase 52 U/L (45-117); Anion Gap 6 meq/L (5-15); Aspartate Aminotransferase 35 U/L (15-37); Blood Urea Nitrogen 30 mg/dL (7-18); Calcium 7.7 mg/dL (8.5-10.1); Carbon Dioxide 25.1 meq/L (21.0-32.0); Chloride 131 meq/L (98-107); Glomerular Filtration Rate Greater Than 89 mL/min (>89); Glucose,Random 107 mg/dL (74-106); Potassium 4.6 meq/L (3.5-5.1); Total Protein 5.5 g/dL (6.4-8.2)
[2018-07-11 08:59] LABS: Sodium 162 meq/L (136-145)
[2018-07-11] MEDS: Lactobacillus Acidophilus/L. Spores Tablet G-TUBE SCH ×3 (09:47→17:22)
[2018-07-11] MEDS: Insulin NovoLOG Aspart Correctional Sugar Inj SQ SCH ×4 (09:49→20:08)
--- NOTE | 2018-07-11 12:28 | P.PNIM ---
Subjective Interval history: Patient is nonverbal. Diarrhea still present. Sodium levels have decreased today on treatments. Physical Exam Vital signs: Vital Signs 07/10/18 16:00 07/10/18 20:00 07/11/18 00:00 Temperature 98.0 F 98.0 F 98.3 F Pulse Rate 102 H 99 H 107 H Respiratory Rate 17 16 15 Blood Pressure 98/62 L 101/65 97/63 L Pulse Oximetry 100 99 98 07/11/18 08:00 Temperature 98.2 F Pulse Rate 97 H Respiratory Rate 17 Blood Pressure 103/66 Pulse Oximetry 98 Intake & Output 07/10/18 07/11/18 07/11/18 18:59 06:59 18:59 Intake Total 1135 / 1135 1350 / 1350 Output Total 700 / 700 720 / 720 Balance 435 / 435 630 / 630 Weight 51.5 kg Intake: IV 1000 / 1000 D5W Inj 1,000 ML @ 75 mls/hr IV 1000 / 1000 .CONT .[id number] [facility] Rx#:[id number] Oral 0 / 0 Tube Feeding 535 / 535 350 / 350 Water Bolus Amount 600 / 600 Output: Urine 500 / 500 Stool 250 / 250 Urine Amount (Catheter) 450 / 450 Indwelling Urethral Catheter 450 / 450 Gastric Drainage 220 / 220 Pre-Hospital Gastrostomy Tube ( 220 / 220 PEG) Other: # Bowel Movements 4 Narrative: GENERAL: NAD, A&Ox0, nonverbal HEAD: Normocephalic. NECK: Supple, trachea midline. No lymphadenopathy. EYES: No scleral icterus. No injection or drainage. CARDIOVASCULAR: Regular rate and rhythm without murmurs, gallops, or rubs. RESPIRATORY: Breath sounds equal bilaterally. No accessory muscle use. GASTROINTESTINAL: Abdomen soft, non-tender, nondistended. No erythema at tube feed site. MUSCULOSKELETAL: No cyanosis, or edema. Stage IV sacral ulcer. SKIN: Warm and dry. NEURO: Global neurological deficits. - Urinary Catheter Management Indwelling Urethral Catheter Cath placed during this visit: no Reason for continuing: Other continuation reason Results - Labs CBC & Chem 7: 07/11/18 07:29 07/11/18 07:29 Laboratory Results - last 24 hr 07/10/18 07/10/18 07/10/18 12:02 15:40 17:26 WBC RBC Hgb Hct MCV MCH MCHC RDW Plt Count MPV Neut % (Auto) Lymph % (Auto) [place] % (Auto) Eos % (Auto) Baso % (Auto) Neut # (Auto) Lymph # (Auto) [place] # (Auto) Eos # (Auto) Baso # (Auto) WBC Differential Differential Comment Sodium 170 H* Potassium 4.6 Chloride 137 H Carbon Dioxide 24.8 Anion Gap 8 BUN 42 H Creatinine 0.69 Estimated GFR Greater than 89 POC Glucose 118 H Random Glucose 115 H Calcium 7.6 L Total Bilirubin 0.2 AST 37 ALT 37 Alkaline Phosphatase 52 Total Protein 5.7 L Albumin 1.8 L Urine Color Yellow Urine Clarity Turbid H Urine pH 8.0 Ur Specific [place] 1.022 Urine Protein 500 or greater Urine Glucose (UA) Negative Urine Ketones Negative Urine Occult Blood Negative Urine Nitrate Positive H Urine Bilirubin Negative Urine Urobilinogen Less than 2 Ur Leukocyte Esterase Small H Urine RBC Urine WBC Triple Phos Crystals Many H Urine Bacteria Many H Hyaline Casts 61 Urine Mucus Many H Micro UA Comment Cath-culture ind Ur Microscopic Review Not Reportable Urine Culture Comments Cath-cult indicated 07/11/18 07/11/18 07:29 07:29 WBC 8.2 RBC 3.81 L Hgb 9.7 L Hct 30.7 L MCV 80.7 MCH 25.4 L MCHC 31.5 L RDW 18.1 H Plt Count 296 MPV 9.2 Neut % (Auto) 71.9 H Lymph % (Auto) 16.8 [place] % (Auto) 7.2 Eos % (Auto) 3.6 Baso % (Auto) 0.5 Neut # (Auto) 5.9 Lymph # (Auto) 1.4 [place] # (Auto) 0.6 Eos # (Auto) 0.3 Baso # (Auto) 0.0 WBC Differential . Differential Comment Auto diff final Sodium 162 H* Potassium 4.6 Chloride 131 H Carbon Dioxide 25.1 Anion Gap 6 BUN 30 H Creatinine 0.58 Estimated GFR Greater than 89 POC Glucose Random Glucose 107 H Calcium 7.7 L Total Bilirubin 0.1 L AST 35 ALT 34 Alkaline Phosphatase 52 Total Protein 5.5 L Albumin 1.8 L Urine Color Urine Clarity Urine pH Ur Specific [place] Urine Protein Urine Glucose (UA) Urine Ketones Urine Occult Blood Urine Nitrate Urine Bilirubin Urine Urobilinogen Ur Leukocyte Esterase Urine RBC Urine WBC Triple Phos Crystals Urine Bacteria Hyaline Casts Urine Mucus Micro UA Comment Ur Microscopic Review Urine Culture Comments Microbiology 07/06/18 21:00 Blood - Peripheral Aerobic Blood Culture - Final Staphylococcus coag negative Pseudomonas aeruginosa 07/06/18 21:00 Blood - Peripheral Anaerobic Blood Culture - Final No growth in 5 days 07/06/18 20:30 Wound - Decubitis Gram Stain - Final 07/06/18 20:30 Wound - Decubitis Wound Culture - Final S. aureus MRSA Pseudomonas aeruginosa Assessment and Plan - Assessment (1) C. difficile colitis Code(s): A04.72 - Enterocolitis due to Clostridium difficile, not specified as recurrent Status: Acute (2) Bandemia Code(s): D72.825 - Bandemia Status: Acute (3) BECKY (acute kidney injury) Code(s): N17.9 - Acute kidney failure, unspecified Status: Acute (4) CVA (cerebral vascular accident) Code(s): I63.9 - Cerebral infarction, unspecified Status: Acute (5) Hypotension Code(s): I95.9 - Hypotension, unspecified Status: Acute - Plan 63 year old female with a history of hemorrhagic CVA and severe chronic neurological deficit, admitted with diarrhea from C. Diff. Monitoring for improvement in diarrhea and sodium levels. IV hydration. Follow renal function and follow for signs of dehydration. Diarrhea improving. Sepsis resolved. Continue monitoring electrolytes. Adjust treatments to balance electrolytes. Labs ordered for further monitoring. Sepsis Resolved Continue follow vital signs Hyponatremia Duration These appears secondary to C. difficile colitis continue IV hydration Follow for improvement C Diff Colitis Leukocytosis PEG Vancomycin Isolation Follow for improvement Dehydration BECKY Follow renal function Avoid nephrotoxins IV Hydration continued Hypotension Treat dehydration Hx of Hemorrhagic CVA Chronic severe neurological deficits Supportive Care Chronic sacral ulcer Stage IV Wound care nurse following Wound care physician consulted DVT Prophylaxis SCDs
[2018-07-11] MEDS ORDERED: Vancomycin Consult Pharmacy OTHER PRN (14:50)
[2018-07-11] MEDS ORDERED: Vancomycin Inj 1,000 MG in Sodium Chlor 0.9% Inj 250 ML IV.SIG SCH (15:00)
--- NOTE | 2018-07-11 15:48 | P.CONID ---
History of Present Illness Service: Infectious Disease Consult date: 07/11/18 Requesting Physician: Timmy Cano Reason for Consult: Evaluation and Mment of Sepsis, bacteremia, Cdiff, sacral wound infection Primary Care Provider: UNKNOWN History of Present Illness: Ms. Miranda is a 63-year-old -L[place]ian female with past medical history of hypertension, CVA with residual hemiparesis as well as aphasia as well as history of C. difficile who [facility] due to hypotension with a blood pressure of 72/58. Patient also had bandemia as well as elevated white count on outpatient labs. Patient is unable to provide any history as she is nonverbal from her baseline aphasia. Per records patient was diagnosed with C. difficile on July 06, 2018 and started on Flagyl but due to worsening hypotension and concern for sepsis she was admitted to the hospital. On arrival her blood pressure was 85/59, heart rate 94, O2 sats 98% on room air and she was afebrile. Her creatinine is 1.46 previously 0.45 on March 20, 2018. Her lactic acid was elevated 2.3. Her WBC was normal however she had significant bandemia of 29% her UA was positive and cultures show gram-negative rods. Blood cultures done on admission are positive for coag negative staph, MRSA as well as pseudomonas aeruginosa. Sacral decubitus wound is also positive for MRSA as well as pseudomonas aeruginosa. Patient received a dose of Cipro and Flagyl in the emergency room. Infectious diseases consulted for evaluation and management of sepsis, gram- positive bacteremia, gram-negative bacteremia, gram-negative UTI, possibly infected sacral decubitus wound, C. difficile flare. At the time of my evaluation patient is on a regular floor in room 1718. Patient's bedside nurse informs me that she is nonverbal minimally tracks with her eye but otherwise just lays in bed with no emotional response either. Patient has a Flexi-Seal bag due to ongoing diarrhea. She also has a sacral decubitus wound which appears to be tunneled down to the bone. She is dark skin so is difficult to criminal justice social worker if she has surrounding cellulitis. But overall the wound base does not appear to be fairly light red and beefy. No obvious discharge noted. Patient also has a PEG tube in place with no obvious evidence of infection. She appears to be tolerating her tube feeds based on my discussion with the nurse. Patient has chronic contractors of her extremities and has to be turned frequently Review of Systems unobtainable due to mental status PMFSH - History History Provided By: Medical Record, Security Trainer / EMT - Tobacco History Smoking Status: Cognitive impairment - Alcohol History How Often Do You Have a Drink Containing Alcohol: Unable to Obtain - Substance Use History Substance History: Unable to Obtain - Travel History Recent Travel in the [place] Within the Last 8 Weeks: No Recent Travel Out of the Country Within the Last 8 Weeks: No - Immunization History Tetanus Immunization: <5 Years Hx Influenza Vaccine This Season: Yes Medications and Allergies Active Medications: Active Medications Dextrose (D50w Vial) 50 ml IV.PUSH UNSCH PRN PRN Reason: PER HYPOGLYCEMIA PROTOCOL Glucagon (Glucagon Inj) 1 mg OTHER UNSCH PRN PRN Reason: for Hypoglycemia Protocol Sodium Chloride (Ns Inj) 1,000 mls @ 0 mls/hr IV.SIG .Q0M [facility] Last Infusion: 07/07/18 08:23 Dose: Infused Sodium Chloride (Ns Inj) 1,000 mls @ 0 mls/hr IV.SIG .Q0M [facility] Last Infusion: 07/07/18 08:22 Dose: Infused Sodium Chloride (Ns Inj) 1,000 mls @ 0 mls/hr IV.SIG BOLUS [facility] Last Infusion: 07/07/18 08:22 Dose: Infused Dextrose (D5w Inj) 1,000 mls @ 75 mls/hr IV.CONT .[id number] [facility] Last Admin: 07/11/18 03:48 Dose: 75 mls/hr Vancomycin HCl 1,000 mg/ (Sodium Chloride) 250 mls @ 250 mls/hr IV.SIG Q12H [facility] Insulin Aspart (Novolog Insulin Correctional Sugar Inj) 0 unit SQ ACHS [facility]; Protocol Last Admin: 07/11/18 12:40 Dose: Not Given Lactobacillus Acidophilus (Lactinex) 1 tab G-TUBE TID [facility] Last Admin: 07/11/18 12:40 Dose: 1 tab Miscellaneous Information ([facility] Ordered Lab Info) 0 each OTHER ONCE ONE Stop: 07/13/18 03:46 Ondansetron HCl (Zofran Inj) 4 mg IV.PUSH Q6H PRN PRN Reason: NAUSEA OR VOMITING Pharmacy Profile Note (Vancomycin Consult Pharmacy) 1 each OTHER UNSCH PRN PRN Reason: Pharmacy to dose Vancomycin HCl (Vancomycin Po) 500 mg G-TUBE QID [facility] Last Admin: 07/11/18 12:40 Dose: 500 mg Allergies Allergy/AdvReac Type Severity Reaction Status Date / Time No Known Allergies Allergy Verified 07/06/18 20:47 Home Medications Medication Instructions Recorded Confirmed Type Lactobacillus acidophilus 100 mmu cells TID 07/07/18 07/07/18 History [Probiotic Acidophilus] alum-mag hydroxide-simeth [Maalox 30 ml PO Q4H PRN 07/07/18 07/07/18 History Maximum Strength] [id number]-hyflegt bmb 1 dose BID 07/07/18 07/07/18 History [Tyshawn] ascorbic acid (vitamin C) [Vitamin 500 mg PO BID 07/07/18 07/07/18 History C] cholestyramine (with sugar) 1 pkg FEEDING TUBE HS 07/07/18 07/07/18 History [Questran] escitalopram oxalate [Lexapro] 10 mg FEEDING TUBE DAILY 07/07/18 07/07/18 History hydralazine 50 mg FEEDING TUBE TID 07/07/18 07/07/18 History hydrochlorothiazide 25 mg FEEDING TUBE DAILY 07/07/18 07/07/18 History lansoprazole 30 mg FEEDING TUBE DAILY 07/07/18 07/07/18 History loperamide 1 tab FEEDING TUBE PRN PRN MDD not 07/07/18 07/07/18 History to exceed 8 caps/24 hours loperamide 4 mg FEEDING TUBE ONCE PRN MDD 8 07/07/18 07/07/18 History caps/24hours magnesium hydroxide [Milk of 30 ml FEEDING TUBE Q4HR PRN 07/07/18 07/07/18 History Magnesia] metoprolol tartrate 25 mg FEEDING TUBE BID 07/07/18 07/07/18 History metronidazole [Flagyl] 500 mg FEEDING TUBE TID 07/07/18 07/07/18 History multivitamin with minerals 20 ml FEEDING TUBE DAILY 07/07/18 07/07/18 History nifedipine 20 mg PO TID 07/07/18 07/07/18 History tramadol 50 mg FEEDING TUBE BID 07/07/18 07/07/18 History tramadol 50 mg FEEDING TUBE BID PRN 07/07/18 07/07/18 History Exam Vital signs: Vital Signs 07/10/18 16:00 07/10/18 20:00 07/11/18 00:00 Temperature 98.0 F 98.0 F 98.3 F Pulse Rate 102 H 99 H 107 H Respiratory Rate 17 16 15 Blood Pressure 98/62 L 101/65 97/63 L Pulse Oximetry 100 99 98 07/11/18 08:00 07/11/18 12:00 Temperature 98.2 F 97.8 F Pulse Rate 97 H 94 H Respiratory Rate 17 17 Blood Pressure 103/66 103/69 Pulse Oximetry 98 97 Intake & Output 07/10/18 07/11/18 07/11/18 18:59 06:59 18:59 Intake Total 1135 / 1135 1350 / 1350 Output Total 700 / 700 720 / 720 Balance 435 / 435 630 / 630 Weight 51.5 kg Intake: IV 1000 / 1000 D5W Inj 1,000 ML @ 75 mls/hr IV 1000 / 1000 .CONT .[id number] [facility] Rx#:[id number] Oral 0 / 0 Tube Feeding 535 / 535 350 / 350 Water Bolus Amount 600 / 600 Output: Urine 500 / 500 Stool 250 / 250 Urine Amount (Catheter) 450 / 450 Indwelling Urethral Catheter 450 / 450 Gastric Drainage 220 / 220 Pre-Hospital Gastrostomy Tube ( 220 / 220 PEG) Other: # Bowel Movements 4 Narrative: GENERAL: Thin built, cachectic appearing, chronically ill-appearing female patient SKIN: Cool and dry, no generalized rash HEAD: Atraumatic. Normocephalic. No temporal or scalp tenderness. EYES: Pupils equal round and reactive. Scleral icterus. No injection or drainage. No petechia ENT: Gross examination nothing abnormal detected NECK: Trachea midline. Supple, nontender, no meningeal signs. CARDIOVASCULAR: HS audible. RESPIRATORY: Clear to auscultation bilaterally. GASTROINTESTINAL: Abdomen soft nontender. PEG tube site okay. MUSCULOSKELETAL: Extremities with contractures noted. NEUROLOGICAL: Opens her eyes spontaneously, tracks with her eyes. No emotions on her face. Sacral decubitus appears to be tunneling down to the bone. Ulcer base appears to be red and beefy with no obvious purulence noted. No surrounding erythema noted. The patient is dark skin. Psych difficult to assess. IV line sites ok. Results - Labs CBC & Chem 7: 07/11/18 07:29 07/11/18 07:29 Labs: Laboratory Results - last 24 hr 07/10/18 07/10/1818 15:40 17:26 07:29 WBC 8.2 RBC 3.81 L Hgb 9.7 L Hct 30.7 L MCV 80.7 MCH 25.4 L MCHC 31.5 L RDW 18.1 H Plt Count 296 MPV 9.2 Neut % (Auto) 71.9 H Lymph % (Auto) 16.8 [place] % (Auto) 7.2 Eos % (Auto) 3.6 Baso % (Auto) 0.5 Neut # (Auto) 5.9 Lymph # (Auto) 1.4 [place] # (Auto) 0.6 Eos # (Auto) 0.3 Baso # (Auto) 0.0 WBC Differential . Differential Comment Auto diff final Sodium Potassium Chloride Carbon Dioxide Anion Gap BUN Creatinine Estimated GFR POC Glucose 118 H Random Glucose Calcium Total Bilirubin AST ALT Alkaline Phosphatase Total Protein Albumin Urine Color Yellow Urine Clarity Turbid H Urine pH 8.0 Ur Specific [place] 1.022 Urine Protein 500 or greater Urine Glucose (UA) Negative Urine Ketones Negative Urine Occult Blood Negative Urine Nitrate Positive H Urine Bilirubin Negative Urine Urobilinogen Less than 2 Ur Leukocyte Esterase Small H Urine RBC Urine WBC Triple Phos Crystals Many H Urine Bacteria Many H Hyaline Casts 61 Urine Mucus Many H Micro UA Comment Cath-culture ind Ur Microscopic Review Not Reportable Urine Culture Comments Cath-cult indicated 07/11/18 07:29 WBC RBC Hgb Hct MCV MCH MCHC RDW Plt Count MPV Neut % (Auto) Lymph % (Auto) [place] % (Auto) Eos % (Auto) Baso % (Auto) Neut # (Auto) Lymph # (Auto) [place] # (Auto) Eos # (Auto) Baso # (Auto) WBC Differential Differential Comment Sodium 162 H* Potassium 4.6 Chloride 131 H Carbon Dioxide 25.1 Anion Gap 6 BUN 30 H Creatinine 0.58 Estimated GFR Greater than 89 POC Glucose Random Glucose 107 H Calcium 7.7 L Total Bilirubin 0.1 L AST 35 ALT 34 Alkaline Phosphatase 52 Total Protein 5.5 L Albumin 1.8 L Urine Color Urine Clarity Urine pH Ur Specific [place] Urine Protein Urine Glucose (UA) Urine Ketones Urine Occult Blood Urine Nitrate Urine Bilirubin Urine Urobilinogen Ur Leukocyte Esterase Urine RBC Urine WBC Triple Phos Crystals Urine Bacteria Hyaline Casts Urine Mucus Micro UA Comment Ur Microscopic Review Urine Culture Comments - Imaging Chest X-Ray 08/31/18 20:33 CONCLUSION: No acute cardiopulmonary process. Assessment and Plan - Plan Possible sepsis present on admission patient is extremely hypoalbuminemic and malnourished may not mount typical SIRS response. Has significant bandemia and lactic acidosis. Pseudomonas aeruginosa bacteremia MRSA bacteremia Coag negative staph bacteremia Gram-negative UTI has a Cruz in place.? Catheter associated UTI with catheter likely present on admission. Sacral decubitus ulcer with tunneling likely osteomyelitis could be a possible source of infection. C. difficile infection with ongoing large-volume diarrhea Recommendations Start cefepime IV Continue vancomycin IV target trough 15-20 Continue oral vancomycin for C. difficile Repeat blood cultures 2 Consult palliative care to help address goals of therapy. In view of ongoing diarrhea and C. difficile infection it would be extremely difficult to control infection in the sacral decubitus area/osteomyelitis suspected. I am not sure if anybody is offered this family a diverting colostomy for the same. Overall patient's very malnourished with hypoalbuminemia and I am not sure if she would be able to withstand a diverting colostomy procedure and/or any other procedures for addressing the sacral decubitus infection which could be the possible source of infection for the current sepsis. Prognosis is guarded at the present time especially if source control cannot be achieved Follow cultures Follow clinical course Discussed with RN No family in the room. Will discuss with palliative care and asked them to see if we can have a family meeting if they had any questions for me.
[2018-07-11] MEDS: Vancomycin Inj 1,000 MG in Sodium Chlor 0.9% Inj 250 ML IV.SIG SCH (17:34)
[2018-07-12 01:45] LABS: Hepatitits B Surface Antigen Nonreactive (Nonreactive)
[2018-07-12 02:09] LABS: Hepatitis A IgM Antibody Nonreactive (Nonreactive)
[2018-07-12] MEDS: Vancomycin Inj 1,000 MG in Sodium Chlor 0.9% Inj 250 ML IV.SIG SCH ×2 (05:22→17:52)
[2018-07-12] MEDS: Dextrose 5% in Water Inj 1,000 ML IV.CONT SCH ×2 (05:22→19:20)
[2018-07-12 07:24] LABS: Baso % (Auto) 0.4 % (0.0-2.0); Eos # (Auto) 0.3 th/mm3 (0.0-0.4); Eos % (Auto) 3.1 % (0.0-4.0); Hematocrit 29.2 % (35.0-46.0); Hemoglobin 9.2 gm/dL (11.6-15.3); Lymph # (Auto) 1.4 th/mm3 (1.0-4.8); Lymph % (Auto) 17.4 % (9.0-44.0); Mean Corpuscular HGB Conc 31.4 % (32.0-36.0); Mean Corpuscular Hemoglobin 25.5 pg (27.0-34.0); Mean Corpuscular Volume 81.2 fL (80.0-100.0); Mean Platelet Volume 9.2 fL (7.0-11.0); Mono # (Auto) 0.6 th/mm3 (0.0-0.9); Mono % (Auto) 7.4 % (0.0-8.0); Neut # (Auto) 5.9 th/mm3 (1.8-7.7); Neut % (Auto) 71.7 % (16.0-70.0); Platelet Count 258 th/mm3 (150-450); Red Blood Count 3.59 mil/mm3 (4.00-5.30); White Blood Count 8.2 th/mm3 (4.0-11.0)
[2018-07-12] MEDS: Insulin NovoLOG Aspart Correctional Sugar Inj SQ SCH ×4 (07:34→21:00)
[2018-07-12 07:55] LABS: Alanine Aminotransferase 36 U/L (10-53); Albumin 1.6 g/dL (3.4-5.0); Anion Gap 5 meq/L (5-15); Aspartate Aminotransferase 37 U/L (15-37); Blood Urea Nitrogen 23 mg/dL (7-18); Calcium 7.6 mg/dL (8.5-10.1); Carbon Dioxide 24.9 meq/L (21.0-32.0); Chloride 126 meq/L (98-107); Glomerular Filtration Rate Greater Than 89 mL/min (>89); Glucose,Random 102 mg/dL (74-106); Potassium 4.3 meq/L (3.5-5.1)
[2018-07-12 07:58] LABS: Alkaline Phosphatase 78 U/L (45-117); Sodium 156 meq/L (136-145); Total Protein 5.2 g/dL (6.4-8.2)
[2018-07-12] MEDS: Lactobacillus Acidophilus/L. Spores Tablet G-TUBE SCH ×3 (09:20→17:56)
--- NOTE | 2018-07-12 10:52 | P.CONWOU ---
History of Present Illness Service: 07/12/18 Consult date: 07/12/18 Reason for Consult: Management of healing stage 4 ulcer Primary Care Provider: UNKNOWN [facility] - History History Provided By: Medical Record, Barrel Ribs Solderer / EMT - Tobacco History Smoking Status: Cognitive impairment - Alcohol History How Often Do You Have a Drink Containing Alcohol: Unable to Obtain - Substance Use History Substance History: Unable to Obtain - Travel History Recent Travel in the [place] Within the Last 8 Weeks: No Recent Travel Out of the Country Within the Last 8 Weeks: No - Immunization History Tetanus Immunization: <5 Years Hx Influenza Vaccine This Season: Yes Medications and Allergies Active Medications: Active Medications Dextrose (D50w Vial) 50 ml IV.PUSH UNSCH PRN PRN Reason: PER HYPOGLYCEMIA PROTOCOL Glucagon (Glucagon Inj) 1 mg OTHER UNSCH PRN PRN Reason: for Hypoglycemia Protocol Sodium Chloride (Ns Inj) 1,000 mls @ 0 mls/hr IV.SIG .Q0M [facility] Last Infusion: 07/07/18 08:23 Dose: Infused Sodium Chloride (Ns Inj) 1,000 mls @ 0 mls/hr IV.SIG .Q0M [facility] Last Infusion: 07/07/18 08:22 Dose: Infused Sodium Chloride (Ns Inj) 1,000 mls @ 0 mls/hr IV.SIG BOLUS [facility] Last Infusion: 07/07/18 08:22 Dose: Infused Dextrose (D5w Inj) 1,000 mls @ 75 mls/hr IV.CONT .[id number] [facility] Last Admin: 07/12/18 05:22 Dose: 75 mls/hr Vancomycin HCl 1,000 mg/ (Sodium Chloride) 250 mls @ 250 mls/hr IV.SIG Q12H [facility] Last Infusion: 07/12/18 08:14 Dose: Infused Cefepime HCl 2,000 mg/ Sodium (Chloride) 100 mls @ 200 mls/hr IV.SIG Q8H [facility] Last Infusion: 07/12/18 02:45 Dose: Infused Insulin Aspart (Novolog Insulin Correctional Sugar Inj) 0 unit SQ ACHS [facility]; Protocol Last Admin: 07/12/18 07:34 Dose: Not Given Lactobacillus Acidophilus (Lactinex) 1 tab G-TUBE TID [facility] Last Admin: 07/12/18 09:20 Dose: 1 tab Miscellaneous Information ([facility] Ordered Lab Info) 0 each OTHER ONCE ONE Stop: 07/13/18 03:46 Ondansetron HCl (Zofran Inj) 4 mg IV.PUSH Q6H PRN PRN Reason: NAUSEA OR VOMITING Pharmacy Profile Note (Vancomycin Consult Pharmacy) 1 each OTHER UNSCH PRN PRN Reason: Pharmacy to dose Vancomycin HCl (Vancomycin Po) 500 mg G-TUBE QID [facility] Last Admin: 07/12/18 09:20 Dose: 500 mg Allergies Allergy/AdvReac Type Severity Reaction Status Date / Time No Known Allergies Allergy Verified 07/06/18 20:47 Home Medications Medication Instructions Recorded Confirmed Type Lactobacillus acidophilus 100 mmu cells TID 07/07/18 07/07/18 History [Probiotic Acidophilus] alum-mag hydroxide-simeth [Maalox 30 ml PO Q4H PRN 07/07/18 07/07/18 History Maximum Strength] [id number]-jmpercrkn-eftlmzg bmb 1 dose BID 07/07/18 07/07/18 History [Tyshawn] ascorbic acid (vitamin C) [Vitamin 500 mg PO BID 07/07/18 07/07/18 History C] cholestyramine (with sugar) 1 pkg FEEDING TUBE HS 07/07/18 07/07/18 History [Questran] escitalopram oxalate [Lexapro] 10 mg FEEDING TUBE DAILY 07/07/18 07/07/18 History hydralazine 50 mg FEEDING TUBE TID 07/07/18 07/07/18 History hydrochlorothiazide 25 mg FEEDING TUBE DAILY 07/07/18 07/07/18 History lansoprazole 30 mg FEEDING TUBE DAILY 07/07/18 07/07/18 History loperamide 1 tab FEEDING TUBE PRN PRN MDD not 07/07/18 07/07/18 History to exceed 8 caps/24 hours loperamide 4 mg FEEDING TUBE ONCE PRN MDD 8 07/07/18 07/07/18 History caps/24hours magnesium hydroxide [Milk of 30 ml FEEDING TUBE Q4HR PRN 07/07/18 07/07/18 History Magnesia] metoprolol tartrate 25 mg FEEDING TUBE BID 07/07/18 07/07/18 History metronidazole [Flagyl] 500 mg FEEDING TUBE TID 07/07/18 07/07/18 History multivitamin with minerals 20 ml FEEDING TUBE DAILY 07/07/18 07/07/18 History nifedipine 20 mg PO TID 07/07/18 07/07/18 History tramadol 50 mg FEEDING TUBE BID 07/07/18 07/07/18 History tramadol 50 mg FEEDING TUBE BID PRN 07/07/18 07/07/18 History Physical Exam Vital signs: Vital Signs 07/11/18 12:00 07/11/18 16:00 07/11/18 20:00 Temperature 97.8 F 99.0 F 98.3 F Pulse Rate 94 H 97 H 95 H Respiratory Rate 17 17 17 Blood Pressure 103/69 99/72 L 112/71 Pulse Oximetry 97 99 99 07/12/18 00:00 07/12/18 08:00 Temperature 98.2 F 97.7 F Pulse Rate 90 78 Respiratory Rate 19 17 Blood Pressure 106/67 84/51 L Pulse Oximetry 98 99 Intake & Output 07/11/18 07/12/18 07/12/18 18:59 06:59 18:59 Intake Total 1485 / 1485 1450 / 1450 1050 / 1050 Output Total 400 / 400 300 / 300 Balance 1085 / 1085 1150 / 1150 1050 / 1050 Weight 54.2 kg Intake: IV 1000 / 1000 1450 / 1450 250 / 250 D5W Inj 1,000 ML @ 75 mls/hr IV 1000 / 1000 1000 / 1000 .CONT .[id number] [facility] Rx#:[id number] Maxipime Inj 2,000 MG In NS Inj 200 / 200 100 ML @ 200 mls/hr IV.SIG Q8H [facility] Rx#:[id number] Vancomycin Inj 1,000 MG In NS 250 / 250 250 / 250 Inj 250 ML @ 250 mls/hr IV.SIG Q12H [facility] Rx#:[id number] Oral 0 / 0 0 / 0 Tube Feeding 285 / 285 600 / 600 Tube Irrigant 200 / 200 Water Bolus Amount 200 / 200 Output: Urine 100 / 100 300 / 300 Stool 300 / 300 Other: Date of Last Bowel Movement 07/09/18 07/11/18 - Urinary Catheter Management Indwelling Urethral Catheter Cath placed during this visit: yes, but has since been removed by the nurse Reason for continuing: Severe pressure ulcer/wound Insertion date: 07/12/18 Insertion time: 01:00 Removal date: 07/12/18 Removal time: 12:50 Wound/Pressure Injury - Patient Status Premedicated for Pain Prior to Dressing Change: No - Wound Coccyx Wound Staging: Stage IV Wound Assessment: Ongoing Wound Type: Pressure Injury Is This a Chronic Wound: Yes Requested from Provider a Wound Care Consult: Yes Length: 6 Width: 6 Depth: 2.3 Wound Bed Appearance: Red, Tunneling/Undermining Wound Bed Appearance: Wound bed presents with ~70% red non granulation tissue,~20 % bone and ~10% adipose . Wound drainage is moderate Surrounding Tissue Appearance: Erythema Surrounding Tissue Temperature: Warm Drainage Description: Serosanguinous Drainage Amount: Minimal Drainage Odor: Slight Odor Dressing Status: Changed Cleansing Solution: Saline Wound Packing Type: Alginate Cover Dressing: border guaze Wound Dressing Change Date: 07/10/18 Wound Margin Description: Wound margins are noted with thickened edges and some epibole. sacrum ulcer Wound Assessment: Ongoing Wound Type: Pressure Injury Is This a Chronic Wound: Yes Requested from Provider a Wound Care Consult: Yes Length: 7 Width: 5 Depth: 3 Wound Bed Appearance: Tunneling/Undermining Surrounding Tissue Appearance: Erythema Surrounding Tissue Temperature: Warm Drainage Description: Sanguinous Drainage Amount: Minimal Drainage Odor: Foul Odor Dressing Status: Dry & Intact Cleansing Solution: Saline Primary Dressing: [place] Cover Dressing: mepilex - Additional Information Patient seen on for stage IV decub wound management consult. Patient has been seen on previous admission for same wound. Patient is a total assist. Turned patient to L side and removed saturated dressing in place to sacrococcygeal area to reveal open wound to coccyx. Wound measurements and descriptions are noted above. Cleaned wound with normal saline and patted dry. Periwound presents with scattered partial thickness skin loss that is moisture related. Patient has a rectal bag in place for fecal management that is peeling off. Feces noted in rectal bag present as liquid and brown. Patient could benefit from Dignisheild. Do not recommend wound VAc at this time due to presence of loose stool and periwound skin breakdown. Packed wound to coccyx loosely with Maxorb extra AG and applied Calazime skin protectant paste to periwound. Skin barrier film was then applied to intact skin before securing bordered gauze in place over wound. Incision - Patient Status Premedicated for Pain Prior to Dressing Change: No Assessment and Plan - Assessment (1) Sacral decubitus ulcer, stage IV Code(s): L89.154 - Pressure ulcer of sacral region, stage 4 Status: Acute Plan: 07/12/18Wound [id number](center.There is undermining from 8 oclock to 3oclock with deepest [id number]. Wound bed is pink and healthy appearing. Wound was mechanically debrided to remove wound debris and biofilm, until a good bleeding base was achieved . Cleaned with normal saline and dressed with puracol ag and maxorb ag and periwound dressed with calazyme and covered with border gauze. Dressing is to be changd as needed or q7 days.
--- NOTE | 2018-07-12 11:59 | P.PN ---
Subjective Interval history: Follow-up visit for patient with CVA with sepsis, diarrhea due to C. difficile and chronic sacral ulcer. Patient seen and examined resting in bed, appears to be in no acute distress. She is nonverbal, does open her eyes, does not follow commands. Physical Exam Vital signs: Vital Signs 07/11/18 12:00 07/11/18 16:00 07/11/18 20:00 Temperature 97.8 F 99.0 F 98.3 F Pulse Rate 94 H 97 H 95 H Respiratory Rate 17 17 17 Blood Pressure 103/69 99/72 L 112/71 Pulse Oximetry 97 99 99 07/12/18 00:00 07/12/18 08:00 Temperature 98.2 F 97.7 F Pulse Rate 90 78 Respiratory Rate 19 17 Blood Pressure 106/67 84/51 L Pulse Oximetry 98 99 Intake & Output 07/11/18 07/12/18 07/12/18 18:59 06:59 18:59 Intake Total 1485 / 1485 1450 / 1450 1150 / 1150 Output Total 400 / 400 300 / 300 Balance 1085 / 1085 1150 / 1150 1150 / 1150 Weight 54.2 kg Intake: IV 1000 / 1000 1450 / 1450 350 / 350 D5W Inj 1,000 ML @ 75 mls/hr IV 1000 / 1000 1000 / 1000 .CONT .[id number] [facility] Rx#:[id number] Maxipime Inj 2,000 MG In NS Inj 200 / 200 100 / 100 100 ML @ 200 mls/hr IV.SIG Q8H [facility] Rx#:[id number] Vancomycin Inj 1,000 MG In NS 250 / 250 250 / 250 Inj 250 ML @ 250 mls/hr IV.SIG Q12H [facility] Rx#:[id number] Oral 0 / 0 0 / 0 Tube Feeding 285 / 285 600 / 600 Tube Irrigant 200 / 200 Water Bolus Amount 200 / 200 Output: Urine 100 / 100 300 / 300 Stool 300 / 300 Other: Date of Last Bowel Movement 07/09/18 07/11/18 Narrative: GENERAL: NAD, A&Ox0, nonverbal HEAD: Normocephalic. NECK: Supple, trachea midline. EYES: No scleral icterus. No injection or drainage. CARDIOVASCULAR: Regular rate and rhythm without murmurs, gallops, or rubs. RESPIRATORY: Breath sounds equal bilaterally. No accessory muscle use. GASTROINTESTINAL: Abdomen soft, non-tender, nondistended. No erythema at tube feed site. MUSCULOSKELETAL: No cyanosis, or edema. SKIN: Warm and dry. NEURO: Global neurological deficits. - Urinary Catheter Management Indwelling Urethral Catheter Cath placed during this visit: yes, but has since been removed by the nurse Reason for continuing: Severe pressure ulcer/wound Insertion date: 07/12/18 Insertion time: 01:00 Removal date: 07/12/18 Removal time: 12:50 Results - Labs CBC & Chem 7: 07/12/18 06:10 07/12/18 06:10 Laboratory Results - last 24 hr 07/10/18 07/11/18 07/11/18 15:40 00:40 09:50 WBC RBC Hgb Hct MCV MCH MCHC RDW Plt Count MPV Neut % (Auto) Lymph % (Auto) Summers % (Auto) Eos % (Auto) Baso % (Auto) Neut # (Auto) Lymph # (Auto) Summers # (Auto) Eos # (Auto) Baso # (Auto) WBC Differential Differential Comment Sodium Potassium Chloride Carbon Dioxide Anion Gap BUN Creatinine Estimated GFR POC Glucose 112 H 132 H Random Glucose Calcium Total Bilirubin AST ALT Alkaline Phosphatase C-Reactive Protein Total Protein Albumin Urine Color Yellow Urine Clarity Turbid H Urine pH 8.0 Ur Specific Darby 1.022 Urine Protein 500 or greater Urine Glucose (UA) Negative Urine Ketones Negative Urine Occult Blood Negative Urine Nitrate Positive H Urine Bilirubin Negative Urine Urobilinogen Less than 2 Ur Leukocyte Esterase Small H Urine RBC Urine WBC Triple Phos Crystals Many H Urine Bacteria Many H Hyaline Casts 61 Urine Mucus Many H Micro UA Comment Cath-culture ind Urine Culture Comments Cath-cult indicated Hepatitis A IgM Ab Hep Bs Antigen Hep B Core IgM Ab Hep C IgG Ab 07/11/18 07/11/18 07/11/18 18:53 18:53 20:09 WBC RBC Hgb Hct MCV MCH MCHC RDW Plt Count MPV Neut % (Auto) Lymph % (Auto) Summers % (Auto) Eos % (Auto) Baso % (Auto) Neut # (Auto) Lymph # (Auto) Summers # (Auto) Eos # (Auto) Baso # (Auto) WBC Differential Differential Comment Sodium Potassium Chloride Carbon Dioxide Anion Gap BUN Creatinine Estimated GFR POC Glucose 113 H Random Glucose Calcium Total Bilirubin AST ALT Alkaline Phosphatase C-Reactive Protein 2.60 H Total Protein Albumin Urine Color Urine Clarity Urine pH Ur Specific Darby Urine Protein Urine Glucose (UA) Urine Ketones Urine Occult Blood Urine Nitrate Urine Bilirubin Urine Urobilinogen Ur Leukocyte Esterase Urine RBC Urine WBC Triple Phos Crystals Urine Bacteria Hyaline Casts Urine Mucus Micro UA Comment Urine Culture Comments Hepatitis A IgM Ab Nonreactive Hep Bs Antigen Nonreactive Hep B Core IgM Ab Reactive H Hep C IgG Ab Nonreactive 07/12/18 07/12/18 07/12/18 06:10 06:10 07:30 WBC 8.2 RBC 3.59 L Hgb 9.2 L Hct 29.2 L MCV 81.2 MCH 25.5 L MCHC 31.4 L RDW 18.0 H Plt Count 258 MPV 9.2 Neut % (Auto) 71.7 H Lymph % (Auto) 17.4 Summers % (Auto) 7.4 Eos % (Auto) 3.1 Baso % (Auto) 0.4 Neut # (Auto) 5.9 Lymph # (Auto) 1.4 Summers # (Auto) 0.6 Eos # (Auto) 0.3 Baso # (Auto) 0.0 WBC Differential . Differential Comment Auto diff final Sodium 156 H* Potassium 4.3 Chloride 126 H Carbon Dioxide 24.9 Anion Gap 5 BUN 23 H Creatinine 0.39 L Estimated GFR Greater than 89 POC Glucose 97 Random Glucose 102 Calcium 7.6 L Total Bilirubin 0.2 AST 37 ALT 36 Alkaline Phosphatase 78 C-Reactive Protein Total Protein 5.2 L Albumin 1.6 L Urine Color Urine Clarity Urine pH Ur Specific Darby Urine Protein Urine Glucose (UA) Urine Ketones Urine Occult Blood Urine Nitrate Urine Bilirubin Urine Urobilinogen Ur Leukocyte Esterase Urine RBC Urine WBC Triple Phos Crystals Urine Bacteria Hyaline Casts Urine Mucus Micro UA Comment Urine Culture Comments Hepatitis A IgM Ab Hep Bs Antigen Hep B Core IgM Ab Hep C IgG Ab Microbiology 07/11/18 18:48 Blood - Peripheral Aerobic Blood Culture - Preliminary No growth in 1 day 07/11/18 18:48 Blood - Peripheral Anaerobic Blood Culture - Preliminary No growth in 1 day 07/11/18 18:53 Blood - Peripheral Aerobic Blood Culture - Preliminary No growth in 1 day 07/11/18 18:53 Blood - Peripheral Anaerobic Blood Culture - Preliminary No growth in 1 day 07/10/18 15:40 Catheterized Urine Urine Culture - Final Proteus mirabilis 07/06/18 21:00 Blood - Peripheral Aerobic Blood Culture - Final Staphylococcus coag negative Pseudomonas aeruginosa 07/06/18 21:00 Blood - Peripheral Anaerobic Blood Culture - Final No growth in 5 days Assessment and Plan - Assessment (1) C. difficile colitis Code(s): A04.72 - Enterocolitis due to Clostridium difficile, not specified as recurrent Status: Acute (2) Bandemia Code(s): D72.825 - Bandemia Status: Acute (3) BECKY (acute kidney injury) Code(s): N17.9 - Acute kidney failure, unspecified Status: Acute (4) CVA (cerebral vascular accident) Code(s): I63.9 - Cerebral infarction, unspecified Status: Acute (5) Hypotension Code(s): I95.9 - Hypotension, unspecified Status: Acute - Plan 63 year old female with a history of hemorrhagic CVA and severe chronic neurological deficit, admitted with diarrhea from C. Diff. Sepsis + Blood cultures, started on IV vancomycin -ID consulted, greatly appreciate assistance, started patient on cefepime -Likely source of sepsis is stage IV coccyx ulcer Hyponatremia Dehydration These appears secondary to C. difficile colitis Continue D5W, sodium level slowly improving Follow for improvement C Diff Colitis Leukocytosis PEG Vancomycin Isolation Follow for improvement Dehydration BECKY Follow renal function Avoid nephrotoxins IV Hydration continued Hypotension Treat dehydration Hx of Hemorrhagic CVA Chronic severe neurological deficits Supportive Care Chronic sacral ulcer Stage IV Wound care nurse following Wound care physician consulted DVT Prophylaxis SCDs Palliative care also consulted by infectious disease, will need to establish goals. Discussed Condition With: Discussed with Discharge Planning: Palliative care to meet with family to establish goals.
--- NOTE | 2018-07-12 12:41 | P.CONPAL ---
Consult Service: Palliative Care Requesting Physician: Maricruz Cruz Reason for Consult: a. To assist with evaluation and management of symptoms including: pain, dyspnea b. To assist medical decision maker(s) with: better understanding of current medical conditions; weighing benefits/burdens of medical treatment options; making medical treatment decisions. Primary Care Provider: UNKNOWN History of Present Illness History of Present Illness: Ms. Miranda is a 63 year [facility] resident who presented to [facility] ED on 07/06/18 for evaluation of hypotension (BP 72/58) and bandemia on outpatient labs. 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 She remained hospitalized until Mar, 2018 when she was discharged to [facility]. Per notes, patient was diagnosed with C. difficile on 07/06/18 and had received 2 doses of Flagyl. Diagnostic data while in the ED: * Vital signs: Afebrile, pulse 94, respirations 20, BP 85/59, oxygen saturation 98% on room air * WBC: 8.6, hemoglobin 11.9, hematocrit 36.7, platelets 455, and band neutrophils 29% * PT: 11.1, INR 1.1, APTT 23.9 * Sodium: 150, potassium 5.5, chloride 114, carbon dioxide 27.2, glucose 131, calcium 7.6, magnesium 4.4 * Lactic acid: 2.3 * BUN: 179, creatinine 1.46, GFR 44 * Total bilirubin: 0.2, AST 27, ALT 26, alkaline phosphatase 49 * Total protein: 6.3, albumin 1.9 * Urinalysis consistent with UTI * Chest x-ray showed no acute cardiopulmonary process * C. difficile positive. Patient was started on IV fluids and received Cipro and Flagyl while in the emergency room. Infectious disease was consulted for recommendations in management of sepsis, C. difficile and sacral wound infection. Blood cultures were positive for coag negative staph and MRSA as well as pseudomonas aeruginosa. Wound cultures were positive for MRSA as well as pseudomonas aeruginosa. The sacral decubitus ulcer has tunneling to the bone, infectious disease suspects osteomyelitis which could be possible source of infection. Catheter associated UTI was likely present on admission; urine culture with Proteus mirabilis. Recommendations to continue oral vancomycin for C. difficile ; start cefepime IV and repeat blood cultures pending. Palliative Care was consulted to assist with symptom management and to discuss with the family the benefits and burdens of her current illnesses and the options regarding future care. Historically the family's goals have remained aggressive. Palliative care attempted to reach the patient son and daughter via telephone. Messages were left at 2 numbers listed with palliative contact information; awaiting return phone call. Patient is minimally responsive and dependent for all care. She tracks with her eyes but is unable to respond to questions or follow commands. She is tolerating artificial nutrition; PEG tube showing no evidence of infection. Given patient's ongoing diarrhea secondary to C. difficile, it will be difficult to control the sacral wound. A diverting colostomy would be an option, but given the patient's current condition she may not be able to tolerate any procedures at this point in time. Review of Systems unobtainable due to mental status PMFSH - History History Provided By: Medical Record, [employer] Engineer / EMT - Medical / Surgical Hx Neg / Unobtainable Surgical History: Unable to Obtain - Medical History Medical History: Medical History (Last Updated 07/12/18 @ 12:00 by ILENE Rivera) Atherosclerotic cardiovascular disease History of DVT (deep vein thrombosis) History of hallucinations History of hemorrhagic stroke with residual hemiparesis History of malignant hypertension - Surgical History Surgical History: Surgical History (Last Updated 07/12/18 @ 15:26 by ILENE Rivera) S/P percutaneous endoscopic gastrostomy (PEG) tube placement - Tobacco History Smoking Status: Cognitive impairment - Alcohol History How Often Do You Have a Drink Containing Alcohol: Unable to Obtain - Substance Use History Substance History: Unable to Obtain - Travel History Recent Travel in the [place] Within the Last 8 Weeks: No Recent Travel Out of the Country Within the Last 8 Weeks: No - Immunization History Tetanus Immunization: <5 Years Hx Influenza Vaccine This Season: Yes Medications and Allergies Active Medications: Active Medications Dextrose (D50w Vial) 50 ml IV.PUSH UNSCH PRN PRN Reason: PER HYPOGLYCEMIA PROTOCOL Glucagon (Glucagon Inj) 1 mg OTHER UNSCH PRN PRN Reason: for Hypoglycemia Protocol Sodium Chloride (Ns Inj) 1,000 mls @ 0 mls/hr IV.SIG .Q0M [facility] Last Infusion: 07/07/18 08:23 Dose: Infused Sodium Chloride (Ns Inj) 1,000 mls @ 0 mls/hr IV.SIG .Q0M [facility] Last Infusion: 07/07/18 08:22 Dose: Infused Sodium Chloride (Ns Inj) 1,000 mls @ 0 mls/hr IV.SIG BOLUS [facility] Last Infusion: 07/07/18 08:22 Dose: Infused Dextrose (D5w Inj) 1,000 mls @ 75 mls/hr IV.CONT .[id number] [facility] Last Admin: 07/12/18 05:22 Dose: 75 mls/hr Vancomycin HCl 1,000 mg/ (Sodium Chloride) 250 mls @ 250 mls/hr IV.SIG Q12H [facility] Last Infusion: 07/12/18 08:14 Dose: Infused Cefepime HCl 2,000 mg/ Sodium (Chloride) 100 mls @ 200 mls/hr IV.SIG Q8H [facility] Last Infusion: 07/12/18 11:25 Dose: Infused Insulin Aspart (Novolog Insulin Correctional Sugar Inj) 0 unit SQ ACHS [facility]; Protocol Last Admin: 07/12/18 07:34 Dose: Not Given Lactobacillus Acidophilus (Lactinex) 1 tab G-TUBE TID [facility] Last Admin: 07/12/18 09:20 Dose: 1 tab Miscellaneous Information ([facility] Ordered Lab Info) 0 each OTHER ONCE ONE Stop: 07/13/18 03:46 Ondansetron HCl (Zofran Inj) 4 mg IV.PUSH Q6H PRN PRN Reason: NAUSEA OR VOMITING Pharmacy Profile Note (Vancomycin Consult Pharmacy) 1 each OTHER UNSCH PRN PRN Reason: Pharmacy to dose Vancomycin HCl (Vancomycin Po) 500 mg G-TUBE QID [facility] Last Admin: 07/12/18 09:20 Dose: 500 mg Allergies Allergy/AdvReac Type Severity Reaction Status Date / Time No Known Allergies Allergy Verified 07/06/18 20:47 Home Medications Medication Instructions Recorded Confirmed Type Lactobacillus acidophilus 100 mmu cells TID 07/07/18 07/07/18 History [Probiotic Acidophilus] alum-mag hydroxide-simeth [Maalox 30 ml PO Q4H PRN 07/07/18 07/07/18 History Maximum Strength] ihlcozur-dlajlgdiy-pzuczrf bmb 1 dose BID 07/07/18 07/07/18 History [Tyshawn] ascorbic acid (vitamin C) [Vitamin 500 mg PO BID 07/07/18 07/07/18 History C] cholestyramine (with sugar) 1 pkg FEEDING TUBE HS 07/07/18 07/07/18 History [Questran] escitalopram oxalate [Lexapro] 10 mg FEEDING TUBE DAILY 07/07/18 07/07/18 History hydralazine 50 mg FEEDING TUBE TID 07/07/18 07/07/18 History hydrochlorothiazide 25 mg FEEDING TUBE DAILY 07/07/18 07/07/18 History lansoprazole 30 mg FEEDING TUBE DAILY 07/07/18 07/07/18 History loperamide 1 tab FEEDING TUBE PRN PRN MDD not 07/07/18 07/07/18 History to exceed 8 caps/24 hours loperamide 4 mg FEEDING TUBE ONCE PRN MDD 8 07/07/18 07/07/18 History caps/24hours magnesium hydroxide [Milk of 30 ml FEEDING TUBE Q4HR PRN 07/07/18 07/07/18 History Magnesia] metoprolol tartrate 25 mg FEEDING TUBE BID 07/07/18 07/07/18 History metronidazole [Flagyl] 500 mg FEEDING TUBE TID 07/07/18 07/07/18 History multivitamin with minerals 20 ml FEEDING TUBE DAILY 07/07/18 07/07/18 History nifedipine 20 mg PO TID 07/07/18 07/07/18 History tramadol 50 mg FEEDING TUBE BID 07/07/18 07/07/18 History tramadol 50 mg FEEDING TUBE BID PRN 07/07/18 07/07/18 History Advance Directives Advance Directives Date on File: 07/12/18 Living Will: No Healthcare Surrogate: Yes (Henri Chiu, designated [facility]. DaughterGeri, is alternate [facility]) Health Care Surrogate Name and Number: Henri Chiu, designated [facility]. DaughterGeri, is alternate [facility] Power of Process Development Chemist: Yes Power of Process Development Chemist Name: Henri Chiu, designated POA. DaughterGrei , is alternate POA Power of Process Development Chemist Relationship to Patient: Children Documented care wishes: No known documented care wishes have been completed Today's verbally stated goals: Patient is unable to participate in the establishment of medical treatment goals Family/friends goals: Historically family goals have remained aggressive. Attempting to contact patient's son and daughter to clarify medical treatment goals Ethical and Legal Issues: No known ethical or legal issues impacting care Physical Exam Vital Signs: Vital Signs - 24 hr 07/11/18 12:00 07/11/18 16:00 07/11/18 20:00 Temperature 97.8 F 99.0 F 98.3 F Pulse Rate 94 H 97 H 95 H Respiratory Rate 17 17 17 Blood Pressure 103/69 99/72 L 112/71 Pulse Oximetry 97 99 99 07/12/18 00:00 07/12/18 08:00 Temperature 98.2 F 97.7 F Pulse Rate 90 78 Respiratory Rate 19 17 Blood Pressure 106/67 84/51 L Pulse Oximetry 98 99 I&O: Intake & Output 07/10/18 07/11/18 07/12/18 07/13/18 06:59 06:59 06:59 06:59 Intake Total 1000 / 1000 2485 / 2485 2935 / 2935 1150 / 1150 Output Total 103 / 103 1420 / 1420 700 / 700 Balance 897 / 897 1065 / 1065 2235 / 2235 1150 / 1150 Weight 52.4 kg 51.5 kg 54.2 kg Physical Exam: CONSTITUTIONAL/GENERAL: This is a frail, debilitated female in no acute distress TUBES/LINES/DRAINS: Nasal cannula, rectal tube, PEG, PIV, urinary catheter SKIN: No jaundice, rashes, or lesions. PEG tube site without evidence of infection skin temperature appropriate. Not diaphoretic. HEAD: Atraumatic. Normocephalic. EYES: Pupils equal and round and reactive. Extraocular motions intact. No scleral icterus. No injection or drainage. Fundi not examined. ENT: Hearing grossly normal. Nose without bleeding or purulent drainage. NECK: Trachea midline. Supple, nontender. No palpable thyroid enlargement or nodularity. CARDIOVASCULAR: Regular rate and rhythm without murmurs, gallops, or rubs. No JVD. Peripheral pulses symmetric. RESPIRATORY/CHEST: Symmetric, unlabored respirations. Clear to auscultation. Breath sounds equal bilaterally. No wheezes, rales, or rhonchi. GASTROINTESTINAL: Abdomen soft, non-tender, nondistended. Tolerating artificial nutrition no guarding. Bowel sounds present. GENITOURINARY: Without palpable bladder distension. Cruz catheter in place. MUSCULOSKELETAL: Extremities without clubbing, cyanosis, or edema. Sandee's with contractures LYMPHATICS: No palpable cervical or supraclavicular adenopathy. NEUROLOGICAL: Opens her eyes spontaneously, tracks with her eyes. No emotions on her face. PSYCHIATRIC: No obvious anxiety/depression. No apparent hallucinations or other psychotic thought process. Diagnostic Tests Laboratory: Laboratory Results - last 72 hr 07/10/18 07/10/18 07/10/18 12:02 12:02 15:40 WBC 6.8 RBC 4.26 Hgb 10.8 L Hct 34.6 L MCV 81.3 MCH 25.3 L MCHC 31.1 L RDW 18.2 H Plt Count 382 MPV 8.8 Neut % (Auto) 71.7 H Lymph % (Auto) 16.2 [place] % (Auto) 7.8 Eos % (Auto) 4.0 Baso % (Auto) 0.3 Neut # (Auto) 4.9 Lymph # (Auto) 1.1 [place] # (Auto) 0.5 Eos # (Auto) 0.3 Baso # (Auto) 0.0 WBC Differential . Differential Comment Auto diff final Sodium 170 H* Potassium 4.6 Chloride 137 H Carbon Dioxide 24.8 Anion Gap 8 BUN 42 H Creatinine 0.69 Estimated GFR Greater than 89 POC Glucose Random Glucose 115 H Calcium 7.6 L Total Bilirubin 0.2 AST 37 ALT 37 Alkaline Phosphatase 52 C-Reactive Protein Total Protein 5.7 L Albumin 1.8 L Urine Color Yellow Urine Clarity Turbid H Urine pH 8.0 Ur Specific Sully 1.022 Urine Protein 500 or greater Urine Glucose (UA) Negative Urine Ketones Negative Urine Occult Blood Negative Urine Nitrate Positive H Urine Bilirubin Negative Urine Urobilinogen Less than 2 Ur Leukocyte Esterase Small H Urine RBC Urine WBC Triple Phos Crystals Many H Urine Bacteria Many H Hyaline Casts 61 Urine Mucus Many H Micro UA Comment Cath-culture ind Ur Microscopic Review Not Reportable Urine Culture Comments Cath-cult indicated Hepatitis A IgM Ab Hep Bs Antigen Hep B Core IgM Ab Hep C IgG Ab 07/10/18 07/11/18 07/11/18 17:26 00:40 07:29 WBC 8.2 RBC 3.81 L Hgb 9.7 L Hct 30.7 L MCV 80.7 MCH 25.4 L MCHC 31.5 L RDW 18.1 H Plt Count 296 MPV 9.2 Neut % (Auto) 71.9 H Lymph % (Auto) 16.8 [place] % (Auto) 7.2 Eos % (Auto) 3.6 Baso % (Auto) 0.5 Neut # (Auto) 5.9 Lymph # (Auto) 1.4 [place] # (Auto) 0.6 Eos # (Auto) 0.3 Baso # (Auto) 0.0 WBC Differential . Differential Comment Auto diff final Sodium Potassium Chloride Carbon Dioxide Anion Gap BUN Creatinine Estimated GFR POC Glucose 118 H 112 H Random Glucose Calcium Total Bilirubin AST ALT Alkaline Phosphatase C-Reactive Protein Total Protein Albumin Urine Color Urine Clarity Urine pH Ur Specific Sully Urine Protein Urine Glucose (UA) Urine Ketones Urine Occult Blood Urine Nitrate Urine Bilirubin Urine Urobilinogen Ur Leukocyte Esterase Urine RBC Urine WBC Triple Phos Crystals Urine Bacteria Hyaline Casts Urine Mucus Micro UA Comment Ur Microscopic Review Urine Culture Comments Hepatitis A IgM Ab Hep Bs Antigen Hep B Core IgM Ab Hep C IgG Ab 07/11/18 07/11/18 07/11/18 07:29 09:50 18:53 WBC RBC Hgb Hct MCV MCH MCHC RDW Plt Count MPV Neut % (Auto) Lymph % (Auto) [place] % (Auto) Eos % (Auto) Baso % (Auto) Neut # (Auto) Lymph # (Auto) [place] # (Auto) Eos # (Auto) Baso # (Auto) WBC Differential Differential Comment Sodium 162 H* Potassium 4.6 Chloride 131 H Carbon Dioxide 25.1 Anion Gap 6 BUN 30 H Creatinine 0.58 Estimated GFR Greater than 89 POC Glucose 132 H Random Glucose 107 H Calcium 7.7 L Total Bilirubin 0.1 L AST 35 ALT 34 Alkaline Phosphatase 52 C-Reactive Protein 2.60 H Total Protein 5.5 L Albumin 1.8 L Urine Color Urine Clarity Urine pH Ur Specific Sully Urine Protein Urine Glucose (UA) Urine Ketones Urine Occult Blood Urine Nitrate Urine Bilirubin Urine Urobilinogen Ur Leukocyte Esterase Urine RBC Urine WBC Triple Phos Crystals Urine Bacteria Hyaline Casts Urine Mucus Micro UA Comment Ur Microscopic Review Urine Culture Comments Hepatitis A IgM Ab Hep Bs Antigen Hep B Core IgM Ab Hep C IgG Ab 07/11/18 07/11/18 07/12/18 18:53 20:09 06:10 WBC 8.2 RBC 3.59 L Hgb 9.2 L Hct 29.2 L MCV 81.2 MCH 25.5 L MCHC 31.4 L RDW 18.0 H Plt Count 258 MPV 9.2 Neut % (Auto) 71.7 H Lymph % (Auto) 17.4 [place] % (Auto) 7.4 Eos % (Auto) 3.1 Baso % (Auto) 0.4 Neut # (Auto) 5.9 Lymph # (Auto) 1.4 [place] # (Auto) 0.6 Eos # (Auto) 0.3 Baso # (Auto) 0.0 WBC Differential . Differential Comment Auto diff final Sodium Potassium Chloride Carbon Dioxide Anion Gap BUN Creatinine Estimated GFR POC Glucose 113 H Random Glucose Calcium Total Bilirubin AST ALT Alkaline Phosphatase C-Reactive Protein Total Protein Albumin Urine Color Urine Clarity Urine pH Ur Specific Sully Urine Protein Urine Glucose (UA) Urine Ketones Urine Occult Blood Urine Nitrate Urine Bilirubin Urine Urobilinogen Ur Leukocyte Esterase Urine RBC Urine WBC Triple Phos Crystals Urine Bacteria Hyaline Casts Urine Mucus Micro UA Comment Ur Microscopic Review Urine Culture Comments Hepatitis A IgM Ab Nonreactive Hep Bs Antigen Nonreactive Hep B Core IgM Ab Reactive H Hep C IgG Ab Nonreactive 07/12/18 07/12/18 06:10 07:30 WBC RBC Hgb Hct MCV MCH MCHC RDW Plt Count MPV Neut % (Auto) Lymph % (Auto) [place] % (Auto) Eos % (Auto) Baso % (Auto) Neut # (Auto) Lymph # (Auto) [place] # (Auto) Eos # (Auto) Baso # (Auto) WBC Differential Differential Comment Sodium 156 H* Potassium 4.3 Chloride 126 H Carbon Dioxide 24.9 Anion Gap 5 BUN 23 H Creatinine 0.39 L Estimated GFR Greater than 89 POC Glucose 97 Random Glucose 102 Calcium 7.6 L Total Bilirubin 0.2 AST 37 ALT 36 Alkaline Phosphatase 78 C-Reactive Protein Total Protein 5.2 L Albumin 1.6 L Urine Color Urine Clarity Urine pH Ur Specific Sully Urine Protein Urine Glucose (UA) Urine Ketones Urine Occult Blood Urine Nitrate Urine Bilirubin Urine Urobilinogen Ur Leukocyte Esterase Urine RBC Urine WBC Triple Phos Crystals Urine Bacteria Hyaline Casts Urine Mucus Micro UA Comment Ur Microscopic Review Urine Culture Comments Hepatitis A IgM Ab Hep Bs Antigen Hep B Core IgM Ab Hep C IgG Ab Result Diagrams: 07/12/18 06:10 07/12/18 06:10 Microbiology: Microbiology 07/11/18 18:48 Aerobic Blood Culture - Preliminary Blood - Peripheral No growth in 1 day Anaerobic Blood Culture - Preliminary No growth in 1 day 07/11/18 18:53 Aerobic Blood Culture - Preliminary Blood - Peripheral No growth in 1 day Anaerobic Blood Culture - Preliminary No growth in 1 day 07/10/18 15:40 Urine Culture - Final Catheterized Urine Proteus mirabilis 07/06/18 21:00 Aerobic Blood Culture - Final Blood - Peripheral Staphylococcus coag negative Pseudomonas aeruginosa Anaerobic Blood Culture - Final No growth in 5 days 07/06/18 20:30 Gram Stain - Final Wound - Decubitis Wound Culture - Final S. aureus MRSA Pseudomonas aeruginosa 07/06/18 21:05 Aerobic Blood Culture - Final Blood - Peripheral Staphylococcus coag negative Anaerobic Blood Culture - Final S. aureus MRSA Imaging: Chest X-Ray 07/06/18 20:33 CONCLUSION: No acute cardiopulmonary process. Assessment and Plan - Disease Oriented Problem List (1) History of CVA (cerebrovascular accident) (2) Bacteremia (3) Urinary tract infection (4) Sepsis (5) C. difficile diarrhea (6) Decubitus ulcer Pertinent Non-Medical Issues: Psychosocial: Patient was born in [place]. She has 5 brothers and 5 sisters. Her childhood was described as happy. Patient has a history of homelessness and has been arrested for trespassing. She graduated from high school, then went to trade school. 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 Patient was when she was 21 years old but was 3 years later. Patient had 2 sons and 1 daughter. Patient has noncompliance with her medical regimen. She was Brock acted in the past secondary to delusions, paranoia and visual/auditory hallucinations. Spiritual: [employer] Legal: Son, Henri Birmingham, is designated as the healthcare surrogate decision maker. Daughter, Geri, is the alternate healthcare surrogate decision maker Ethical issues impacting care: No known ethical issues impacting care at this time. Important Contacts: Aleena Wallace [phone]. (This number no longer belongs to Geri) Henri Birmingham [phone], . NEWEST NUMBER PROVIDED: [phone] Prognosis: Patient is a frail, cachectic shelter resident status post CVA in April, with residual hemiparesis and aphasia. She is nonverbal and dependent for all care. She is now admitted with sepsis, C. difficile and a stage IV sacral decubitus wound. Patient's condition is guarded. She is at risk for deterioration if the source of infection cannot be controlled. Code Status: Full Code Plan: * FULL CODE * Decision making: Patient is unable to participate in establishment of medical treatment goals s/p CVA with residual hemiparesis and aphasia. She designated her son, Henri Birmingham, as her health care surrogate decision maker. Daughter, Aleena Wallace, is the alternate health care surrogate. * GOALS AGGRESSIVE * Discussed patient with Dr. Cruz and RN * Symptom management: == Debility: Patient has resided in a NH status post CVA in 04/2017 with residual hemiparesis and aphasia. She is dependent for all care. She is able to track with her eyes but does not respond to questions or follow commands. She is unable to make her needs known. Extremities are contracted. == Pain:Likely sources of pain are bedbound status, invasive lines, large tunnelled sacral decubitus, sepsis, C. difficile infection, contractures. She is receiving tramadol 50 mg BID prior to admission. Monitor for signs and symptoms of nonverbal pain such as grimacing, moaning. May want to consider restarting tramadol. * Attempted to contact patient's son and daughter. Listed contact information for daughter is incorrect, and someone else has that number now. Messages were left for patient's son on 2 possible phone numbers; awaiting return phone calls. Appreciation Thank you for the opportunity to participate in the care of Treva Miranda. Attestation Attestation: To help prompt me to consider important information that might be impacting today's encounter and assessment, information from prior notes written by myself or my colleagues may have been "brought forward" into today's note. My signature on this note, however, is an attestation that I personally performed the exam, history, and/or decision-making noted today, and, unless otherwise indicated, the interactions with patient, family, and staff as well as the review of records all occurred today. I also attest that the listed assessment and stated plan reflect my best clinical judgment today based on the combination of historical information, prior notes, and today's exam/ interactions. When time spent is documented, it refers only to time spent today by the signer, or if indicated, combined time spent today by collaborating physician/nurse practitioner.
--- NOTE | 2018-07-12 13:27 | P.PNWCN ---
Wound Care Nurse Consult Description: Patient seen for follow up of pressure injury to coccyxwith Doctor Atkins. Communicated with: LINSEY hidalgo Recommendation: Please follow written orders from Doctor Atkins for wound care. Wound/Pressure Injury - Wound Coccyx Wound Staging: Stage IV Wound Assessment: Ongoing Wound Type: Pressure Injury Is This a Chronic Wound: Yes Requested from Provider a Wound Care Consult: Yes Length: 4 (cm) Width: 4.5 (cm) Depth: 1.5 (cm) Wound Bed Appearance: Red, Tunneling/Undermining ( 3 to 8 oclock deepest at 8 o' clock measuring 4 cm) Wound Bed Appearance: Wound bed presents with ~70% red non granulation tissue,~20 % bone and ~10% adipose . Wound drainage is moderate Surrounding Tissue Temperature: Cool Drainage Description: Serosanguinous Drainage Amount: Minimal Drainage Odor: No Odor Dressing Status: Changed Cleansing Solution: Saline Wound Packing Type: Collagen (Puracol AG, then maxorb AG) Cover Dressing: border guaze Wound Dressing Change Date: 07/12/18 Wound Margin Description: Wound margins are noted with thickened edges and some epibole. - Additional Information Patient seen on for Wound care physician consult for a stage IV pressure injury to coccyx with Doctor Atkins. Shahrzad was seen earlier this week for this wound by proposal manager writer. Patient is a total assist with the assistance of Yessi hidalgo and proposal manager writer.Turned patient to R side and removed bordered gauze dressing and maxorb AG dressing in place to sacrococcygeal area to reveal open wound to coccyx. Wound measurements and descriptions are noted above. Cleaned wound with normal saline and patted dry. Periwound presents with improving scattered partial thickness skin loss that is moisture related. Patient has a rectal bag in place for fecal management. Feces noted in rectal bag present as liquid and brown.Doctor Andrew assessed wound, that has improved with today's assessment. Packed wound to coccyx loosely with puracol AG followed by Maxorb extra AG and applied Calazime skin protectant paste to periwound. Skin barrier film was then applied to intact skin before securing bordered gauze in place over wound.
--- NOTE | 2018-07-12 15:45 | P.PNID ---
Subjective Remarks: Ms. Miranda is a 63-year-old -Swiss female with past medical history of hypertension, CVA with residual hemiparesis as well as aphasia as well as history of C. difficile who presents to the emergency room from a [place] [facility] facility due to hypotension with a blood pressure of 72/58. Patient also had bandemia as well as elevated white count on outpatient labs. Patient is unable to provide any history as she is nonverbal from her baseline aphasia. Per records patient was diagnosed with C. difficile on July 06, 2018 and started on Flagyl but due to worsening hypotension and concern for sepsis she was admitted to the hospital. On arrival her blood pressure was 85/59, heart rate 94, O2 sats 98% on room air and she was afebrile. Her creatinine is 1.46 previously 0.45 on March 20, 2018. Her lactic acid was elevated 2.3. Her WBC was normal however she had significant bandemia of 29% her UA was positive and cultures show gram-negative rods. Blood cultures done on admission are positive for coag negative staph, MRSA as well as pseudomonas aeruginosa. Sacral decubitus wound is also positive for MRSA as well as pseudomonas aeruginosa. Patient received a dose of Cipro and Flagyl in the emergency room. Infectious diseases consulted for evaluation and management of sepsis, gram- positive bacteremia, gram-negative bacteremia, gram-negative UTI, possibly infected sacral decubitus wound, C. difficile flare. At the time of my evaluation patient is on a regular floor in room 1718. Patient's bedside nurse informs me that she is nonverbal minimally tracks with her eye but otherwise just lays in bed with no emotional response either. Patient has a Flexi-Seal bag due to ongoing diarrhea. She also has a sacral decubitus wound which appears to be tunneled down to the bone. 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 But overall the wound base does not appear to be fairly light red and beefy. No obvious discharge noted. Patient also has a PEG tube in place with no obvious evidence of infection. She appears to be tolerating her tube feeds based on my discussion with the nurse. Patient has chronic contractors of her extremities and has to be turned frequently Overnight events reviewed. No fever No rash continues to have large-volume diarrhea has rectal tube in place No change in mentation Antibiotics: Cefepime IV Vanco IV Vanco Oral Lines: Lines ok Past Medical History: reviewed Allergies/Adverse Reactions: Allergies No Known Allergies Allergy (Verified 07/06/18 20:47) Objective Vital Signs 07/11/18 16:00 07/11/18 20:00 07/12/18 00:00 Temperature 99.0 F 98.3 F 98.2 F Pulse Rate 97 H 95 H 90 Respiratory Rate 17 17 19 Blood Pressure 99/72 L 112/71 106/67 Pulse Oximetry 99 99 98 07/12/18 08:00 07/12/18 12:00 Temperature 97.7 F 97.9 F Pulse Rate 78 88 Respiratory Rate 17 17 Blood Pressure 84/51 L 108/69 Pulse Oximetry 99 98 Intake & Output 07/11/18 07/12/18 07/12/18 18:59 06:59 18:59 Intake Total 1485 / 1485 1450 / 1450 1150 / 1150 Output Total 400 / 400 300 / 300 Balance 1085 / 1085 1150 / 1150 1150 / 1150 Weight 54.2 kg Intake: IV 1000 / 1000 1450 / 1450 350 / 350 D5W Inj 1,000 ML @ 75 mls/hr IV 1000 / 1000 1000 / 1000 .CONT .[id number] [facility] Rx#:[id number] Maxipime Inj 2,000 MG In NS Inj 200 / 200 100 / 100 100 ML @ 200 mls/hr IV.SIG Q8H [facility] Rx#:[id number] Vancomycin Inj 1,000 MG In NS 250 / 250 250 / 250 Inj 250 ML @ 250 mls/hr IV.SIG Q12H [facility] Rx#:[id number] Oral 0 / 0 0 / 0 Tube Feeding 285 / 285 600 / 600 Tube Irrigant 200 / 200 Water Bolus Amount 200 / 200 Output: Urine 100 / 100 300 / 300 Stool 300 / 300 Other: Date of Last Bowel Movement 07/09/18 07/11/18 07/11/18 18:48 Blood - Peripheral Aerobic Blood Culture - Preliminary No growth in 1 day 07/11/18 18:48 Blood - Peripheral Anaerobic Blood Culture - Preliminary No growth in 1 day 07/11/18 18:53 Blood - Peripheral Aerobic Blood Culture - Preliminary No growth in 1 day 07/11/18 18:53 Blood - Peripheral Anaerobic Blood Culture - Preliminary No growth in 1 day 07/10/18 15:40 Catheterized Urine Urine Culture - Final Proteus mirabilis 07/06/18 21:00 Blood - Peripheral Aerobic Blood Culture - Final Staphylococcus coag negative Pseudomonas aeruginosa 07/06/18 21:00 Blood - Peripheral Anaerobic Blood Culture - Final No growth in 5 days 07/06/18 20:30 Wound - Decubitis Gram Stain - Final 07/06/18 20:30 Wound - Decubitis Wound Culture - Final S. aureus MRSA Pseudomonas aeruginosa Lab - Hematology Results 07/11/18 07/12/18 07:29 06:10 WBC 8.2 8.2 RBC 3.81 L 3.59 L Hgb 9.7 L 9.2 L Hct 30.7 L 29.2 L MCV 80.7 81.2 MCH 25.4 L 25.5 L MCHC 31.5 L 31.4 L RDW 18.1 H 18.0 H Plt Count 296 258 MPV 9.2 9.2 Neut % (Auto) 71.9 H 71.7 H Lymph % (Auto) 16.8 17.4 Baldwin % (Auto) 7.2 7.4 Eos % (Auto) 3.6 3.1 Baso % (Auto) 0.5 0.4 Neut # (Auto) 5.9 5.9 Lymph # (Auto) 1.4 1.4 Baldwin # (Auto) 0.6 0.6 Eos # (Auto) 0.3 0.3 Baso # (Auto) 0.0 0.0 WBC Differential . . Differential Comment Auto diff final Auto diff final Lab - Chemistry Results 07/10/18 07/11/18 07/11/18 17:26 00:40 07:29 Sodium 162 H* Potassium 4.6 Chloride 131 H Carbon Dioxide 25.1 Anion Gap 6 BUN 30 H Creatinine 0.58 Estimated GFR Greater than 89 POC Glucose 118 H 112 H Random Glucose 107 H Calcium 7.7 L Total Bilirubin 0.1 L AST 35 ALT 34 Alkaline Phosphatase 52 C-Reactive Protein Total Protein 5.5 L Albumin 1.8 L 07/11/18 07/11/18 07/11/18 09:50 18:53 20:09 Sodium Potassium Chloride Carbon Dioxide Anion Gap BUN Creatinine Estimated GFR POC Glucose 132 H 113 H Random Glucose Calcium Total Bilirubin AST ALT Alkaline Phosphatase C-Reactive Protein 2.60 H Total Protein Albumin 09/06/18 09/06/18 09/06/18 06:10 07:30 12:12 Sodium 156 H* Potassium 4.3 Chloride 126 H Carbon Dioxide 24.9 Anion Gap 5 BUN 23 H Creatinine 0.39 L Estimated GFR Greater than 89 POC Glucose 97 112 H Random Glucose 102 Calcium 7.6 L Total Bilirubin 0.2 AST 37 ALT 36 Alkaline Phosphatase 78 C-Reactive Protein Total Protein 5.2 L Albumin 1.6 L Imaging: ITS Impressions Chest X-Ray 07/06/18 20:33 CONCLUSION: No acute cardiopulmonary process. Physical Exam: GENERAL: Thin built, cachectic appearing, chronically ill-appearing female patient SKIN: Cool and dry, no generalized rash HEAD: Atraumatic. Normocephalic. No temporal or scalp tenderness. EYES: Pupils equal round and reactive. Scleral icterus. No injection or drainage. No petechia ENT: Gross examination nothing abnormal detected NECK: Trachea midline. Supple, nontender, no meningeal signs. CARDIOVASCULAR: HS audible. RESPIRATORY: Clear to auscultation bilaterally. GASTROINTESTINAL: Abdomen soft nontender. PEG tube site okay. MUSCULOSKELETAL: Extremities with contractures noted. NEUROLOGICAL: Opens her eyes spontaneously, tracks with her eyes. No emotions on her face. Sacral decubitus appears to be tunneling down to the bone. Ulcer base appears to be red and beefy with no obvious purulence noted. No surrounding erythema noted. The patient is dark skin. Psych difficult to assess. IV line sites ok. Assessment and Plan - Plan Possible sepsis present on admission patient is extremely hypoalbuminemic and malnourished may not mount typical SIRS response. Has significant bandemia and lactic acidosis. Pseudomonas aeruginosa bacteremia MRSA bacteremia Coag negative staph bacteremia Gram-negative UTI has a Cruz in place.? Catheter associated UTI with catheter likely present on admission. Sacral decubitus ulcer with tunneling likely osteomyelitis could be a possible source of infection. C. difficile infection with ongoing large-volume diarrhea Recommendations Continue cefepime IV Continue vancomycin IV target trough 15-20 Continue oral vancomycin for C. difficile Follow blood cultures Patient appreciate palliative care input discussed case with them. Patient reportedly has a son who is very involved in prior admissions. Follow cultures Follow clinical course Discussed with LINSEY
[2018-07-13] MEDS ORDERED: Pharmacy Ordered Lab Info OTHER ONE (03:45)
[2018-07-13] MEDS: Vancomycin Inj 1,000 MG in Sodium Chlor 0.9% Inj 250 ML IV.SIG SCH (03:54)
[2018-07-13 04:46] LABS: Anion Gap 7 meq/L (5-15); Blood Urea Nitrogen 18 mg/dL (7-18); Calcium 7.5 mg/dL (8.5-10.1); Carbon Dioxide 25.5 meq/L (21.0-32.0); Chloride 121 meq/L (98-107); Glomerular Filtration Rate Greater Than 89 mL/min (>89); Glucose,Random 102 mg/dL (74-106); Potassium 4.3 meq/L (3.5-5.1); Sodium 153 meq/L (136-145)
[2018-07-13 04:48] LABS: Vancomycin,Trough 14.5 mcg/mL (5.0-10.0)
[2018-07-13] MEDS: Insulin NovoLOG Aspart Correctional Sugar Inj SQ SCH ×4 (08:48→20:45)
[2018-07-13] MEDS: Dextrose 5% in Water Inj 1,000 ML IV.CONT SCH ×2 (08:48→22:16)
[2018-07-13] MEDS: Lactobacillus Acidophilus/L. Spores Tablet G-TUBE SCH ×3 (08:49→17:29)
--- NOTE | 2018-07-13 12:02 | P.PN ---
Subjective Interval history: Follow-up visit for patient with CVA with sepsis, diarrhea due to C. difficile and chronic sacral ulcer. Patient seen and examined resting in bed, appears to be in no acute distress. She is awake and alert and makes eye contact as well as tracks. When asked if she is in any pain I do notice that patient slightly shakes her head "no". When asked patient to showed her eyes tight she closes her eyes for several seconds. Asked if she is having any shortness of breath, nausea or headache. Patient shakes her head no slightly once again. Nursing does not report any acute events overnight. Physical Exam Vital signs: Vital Signs 07/12/18 16:00 07/12/18 20:00 07/13/18 00:00 Temperature 98.3 F 97.7 F 97.7 F Pulse Rate 85 84 82 Respiratory Rate 17 16 16 Blood Pressure 119/74 117/65 118/69 Pulse Oximetry 97 100 100 Intake & Output 07/12/18 07/13/18 07/13/18 18:59 06:59 18:59 Intake Total 2899 / 2899 1052 / 1052 1000 / 1000 Output Total 500 / 500 Balance 2899 / 2899 1052 / 1052 500 / 500 Weight 55.8 kg 55.8 kg Intake: IV 1600 / 1600 450 / 450 1000 / 1000 D5W Inj 1,000 ML @ 75 mls/hr IV 1000 / 1000 1000 / 1000 .CONT .[id number] [facility] Rx#:[id number] Maxipime Inj 2,000 MG In NS Inj 100 / 100 200 / 200 100 ML @ 200 mls/hr IV.SIG Q8H [facility] Rx#:[id number] Vancomycin Inj 1,000 MG In NS 500 / 500 250 / 250 Inj 250 ML @ 250 mls/hr IV.SIG Q12H [facility] Rx#:[id number] Tube Feeding 979 / 979 542 / 542 Tube Irrigant 320 / 320 60 / 60 Output: Stool 500 / 500 Other: Date of Last Bowel Movement 06/12/18 Narrative: GENERAL: Very thin elderly female, NAD, awake, appears to be in no acute distress. HEAD: Normocephalic. NECK: Supple, trachea midline. EYES: No scleral icterus. No injection or drainage. CARDIOVASCULAR: Regular rate and rhythm without murmurs, gallops, or rubs. RESPIRATORY: Breath sounds equal bilaterally. No accessory muscle use. GASTROINTESTINAL: Abdomen soft, non-tender, nondistended. No erythema at tube feed site. MUSCULOSKELETAL: No cyanosis, or edema. SKIN: Warm and dry. NEURO: Global neurological deficits. Appears to understand when I ask questions , closes eyes on command, also appears to shake her head no. - Urinary Catheter Management Indwelling Urethral Catheter Cath placed during this visit: yes, but has since been removed by the nurse Reason for continuing: Severe pressure ulcer/wound Insertion date: 07/12/18 Insertion time: 01:00 Removal date: 07/12/18 Removal time: 12:50 Results - Labs CBC & Chem 7: 07/12/18 06:10 07/13/18 03:45 Laboratory Results - last 24 hr 07/12/18 07/12/18 07/12/18 12:12 17:38 21:23 Sodium Potassium Chloride Carbon Dioxide Anion Gap BUN Creatinine Estimated GFR POC Glucose 112 H 99 115 H Random Glucose Calcium Vancomycin Trough 07/13/18 07/13/18 03:45 07:46 Sodium 153 H Potassium 4.3 Chloride 121 H Carbon Dioxide 25.5 Anion Gap 7 BUN 18 Creatinine 0.40 L Estimated GFR Greater than 89 POC Glucose 113 H Random Glucose 102 Calcium 7.5 L Vancomycin Trough 14.5 H Microbiology 07/11/18 18:48 Blood - Peripheral Aerobic Blood Culture - Preliminary No growth in 2 days 07/11/18 18:48 Blood - Peripheral Anaerobic Blood Culture - Preliminary No growth in 2 days 07/11/18 18:53 Blood - Peripheral Aerobic Blood Culture - Preliminary No growth in 2 days 07/11/18 18:53 Blood - Peripheral Anaerobic Blood Culture - Preliminary No growth in 2 days 07/10/18 15:40 Catheterized Urine Urine Culture - Final Proteus mirabilis Assessment and Plan - Assessment (1) C. difficile colitis Code(s): A04.72 - Enterocolitis due to Clostridium difficile, not specified as recurrent Status: Acute (2) Bandemia Code(s): D72.825 - Bandemia Status: Acute (3) BECKY (acute kidney injury) Code(s): N17.9 - Acute kidney failure, unspecified Status: Acute (4) CVA (cerebral vascular accident) Code(s): I63.9 - Cerebral infarction, unspecified Status: Acute (5) Hypotension Code(s): I95.9 - Hypotension, unspecified Status: Acute - Plan 63 year old female with a history of hemorrhagic CVA and severe chronic neurological deficit, admitted with diarrhea from C. Diff. Sepsis + Blood cultures, started on IV vancomycin -ID consulted, greatly appreciate assistance, started patient on cefepime -Likely source of sepsis is stage IV coccyx ulcer Hyponatremia Dehydration These appears secondary to C. difficile colitis Continue D5W, sodium levels continue to improve Recheck labs in the morning C Diff Colitis Leukocytosis PEG Vancomycin Isolation Follow for improvement Dehydration BECKY Follow renal function Avoid nephrotoxins IV Hydration continued Hypotension Treat dehydration Hx of Hemorrhagic CVA Chronic severe neurological deficits Supportive Care Chronic sacral ulcer Stage IV Wound care nurse following Wound care physician consulted Patient would benefit from diverting colostomy however likely too malnourished to tolerate surgery DVT Prophylaxis SCDs Discussed Condition With: Palliative care ILENE Cassidy Discharge Planning: Palliative care trying to reach family to establish goals of treatment. Per palliative care patient was here previously for a prolonged period of time and during that visit family's goals remain aggressive.
--- NOTE | 2018-07-13 14:35 | P.PNID ---
Subjective Remarks: Ms. Miranda is a 63-year-old -[place] female with past medical history of hypertension, CVA with residual hemiparesis as well as aphasia as well as history of C. difficile who [facility] with a blood pressure of 72/58. Patient also had bandemia as well as elevated white count on outpatient labs. Patient is unable to provide any history as she is nonverbal from her baseline aphasia. Per records patient was diagnosed with C. difficile on July 06, 2018 and started on Flagyl but due to worsening hypotension and concern for sepsis she was admitted to the hospital. On arrival her blood pressure was 85/59, heart rate 94, O2 sats 98% on room air and she was afebrile. Her creatinine is 1.46 previously 0.45 on March 20, 2018. Her lactic acid was elevated 2.3. Her WBC was normal however she had significant bandemia of 29% her UA was positive and cultures show gram-negative rods. Blood cultures done on admission are positive for coag negative staph, MRSA as well as pseudomonas aeruginosa. Sacral decubitus wound is also positive for MRSA as well as pseudomonas aeruginosa. Patient received a dose of Cipro and Flagyl in the emergency room. Infectious diseases consulted for evaluation and management of sepsis, gram- positive bacteremia, gram-negative bacteremia, gram-negative UTI, possibly infected sacral decubitus wound, C. difficile flare. At the time of my evaluation patient is on a regular floor in room 1718. Patient's bedside nurse informs me that she is nonverbal minimally tracks with her eye but otherwise just lays in bed with no emotional response either. Patient has a Flexi-Seal bag due to ongoing diarrhea. She also has a sacral decubitus wound which appears to be tunneled down to the bone. 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 But overall the wound base does not appear to be fairly light red and beefy. No obvious discharge noted. Patient also has a PEG tube in place with no obvious evidence of infection. She appears to be tolerating her tube feeds based on my discussion with the nurse. Patient has chronic contractors of her extremities and has to be turned frequently Overnight events reviewed. No fever No rash continues to have large-volume diarrhea has rectal tube in place No change in mentation Antibiotics: Sepsis present on admission Pseudomonas aeruginosa bacteremia Coag negative staph bacteremia MRSA bacteremia Gram-negative UTI Sacral decubitus ulcer likely infected. Concern for underlying osteomyelitis. Recommendation Allergies/Adverse Reactions: Allergies No Known Allergies Allergy (Verified 07/06/18 20:47) Objective Vital Signs 07/12/18 16:00 07/12/18 20:00 07/13/18 00:00 Temperature 98.3 F 97.7 F 97.7 F Pulse Rate 85 84 82 Respiratory Rate 17 16 16 Blood Pressure 119/74 117/65 118/69 Pulse Oximetry 97 100 100 Intake & Output 07/12/18 07/13/18 07/13/18 18:59 06:59 18:59 Intake Total 2899 / 2899 1052 / 1052 1100 / 1100 Output Total 500 / 500 Balance 2899 / 2899 1052 / 1052 600 / 600 Weight 55.8 kg 55.8 kg Intake: IV 1600 / 1600 450 / 450 1100 / 1100 D5W Inj 1,000 ML @ 75 mls/hr IV 1000 / 1000 1000 / 1000 .CONT .[id number] [facility] Rx#:[id number] Maxipime Inj 2,000 MG In NS Inj 100 / 100 200 / 200 100 / 100 100 ML @ 200 mls/hr IV.SIG Q8H [facility] Rx#:[id number] Vancomycin Inj 1,000 MG In NS 500 / 500 250 / 250 Inj 250 ML @ 250 mls/hr IV.SIG Q12H [facility] Rx#:[id number] Tube Feeding 979 / 979 542 / 542 Tube Irrigant 320 / 320 60 / 60 Output: Stool 500 / 500 Other: Date of Last Bowel Movement 06/12/18 07/11/18 18:48 Blood - Peripheral Aerobic Blood Culture - Preliminary No growth in 2 days 07/11/18 18:48 Blood - Peripheral Anaerobic Blood Culture - Preliminary No growth in 2 days 07/11/18 18:53 Blood - Peripheral Aerobic Blood Culture - Preliminary No growth in 2 days 07/11/18 18:53 Blood - Peripheral Anaerobic Blood Culture - Preliminary No growth in 2 days 07/10/18 15:40 Catheterized Urine Urine Culture - Final Proteus mirabilis 07/06/18 21:00 Blood - Peripheral Aerobic Blood Culture - Final Staphylococcus coag negative Pseudomonas aeruginosa 07/06/18 21:00 Blood - Peripheral Anaerobic Blood Culture - Final No growth in 5 days 07/06/18 20:30 Wound - Decubitis Gram Stain - Final 07/06/18 20:30 Wound - Decubitis Wound Culture - Final S. aureus MRSA Pseudomonas aeruginosa Lab - Hematology Results 07/12/18 06:10 WBC 8.2 RBC 3.59 L Hgb 9.2 L Hct 29.2 L MCV 81.2 MCH 25.5 L MCHC 31.4 L RDW 18.0 H Plt Count 258 MPV 9.2 Neut % (Auto) 71.7 H Lymph % (Auto) 17.4 Ness % (Auto) 7.4 Eos % (Auto) 3.1 Baso % (Auto) 0.4 Neut # (Auto) 5.9 Lymph # (Auto) 1.4 Ness # (Auto) 0.6 Eos # (Auto) 0.3 Baso # (Auto) 0.0 WBC Differential . Differential Comment Auto diff final Lab - Chemistry Results 07/11/18 07/11/18 07/11/18 00:40 09:50 18:53 Sodium Potassium Chloride Carbon Dioxide Anion Gap BUN Creatinine Estimated GFR POC Glucose 112 H 132 H Random Glucose Calcium Total Bilirubin AST ALT Alkaline Phosphatase C-Reactive Protein 2.60 H Total Protein Albumin 07/11/18 07/12/18 07/12/18 20:09 06:10 07:30 Sodium 156 H* Potassium 4.3 Chloride 126 H Carbon Dioxide 24.9 Anion Gap 5 BUN 23 H Creatinine 0.39 L Estimated GFR Greater than 89 POC Glucose 113 H 97 Random Glucose 102 Calcium 7.6 L Total Bilirubin 0.2 AST 37 ALT 36 Alkaline Phosphatase 78 C-Reactive Protein Total Protein 5.2 L Albumin 1.6 L 07/12/18 07/12/18 07/12/18 12:12 17:38 21:23 Sodium Potassium Chloride Carbon Dioxide Anion Gap BUN Creatinine Estimated GFR POC Glucose 112 H 99 115 H Random Glucose Calcium Total Bilirubin AST ALT Alkaline Phosphatase C-Reactive Protein Total Protein Albumin 07/13/18 07/13/18 07/13/18 03:45 07:46 12:34 Sodium 153 H Potassium 4.3 Chloride 121 H Carbon Dioxide 25.5 Anion Gap 7 BUN 18 Creatinine 0.40 L Estimated GFR Greater than 89 POC Glucose 113 H 118 H Random Glucose 102 Calcium 7.5 L Total Bilirubin AST ALT Alkaline Phosphatase C-Reactive Protein Total Protein Albumin Imaging: ITS Impressions Chest X-Ray 07/06/18 20:33 CONCLUSION: No acute cardiopulmonary process. Assessment and Plan - Plan Possible sepsis present on admission patient is extremely hypoalbuminemic and malnourished may not mount typical SIRS response. Has significant bandemia and lactic acidosis. Pseudomonas aeruginosa bacteremia MRSA bacteremia Coag negative staph bacteremia Gram-negative UTI has a Cruz in place.? Catheter associated UTI with catheter likely present on admission. Sacral decubitus ulcer with tunneling likely osteomyelitis could be a possible source of infection. C. difficile infection with ongoing large-volume diarrhea Recommendations Continue cefepime IV Continue vancomycin IV target trough 15-20 Continue oral vancomycin for C. difficile Follow blood cultures Patient appreciate palliative care input. No family POA visits per nursing staff. Follow cultures Follow clinical course Discussed with RN available prn this weekend.
[2018-07-13] MEDS: Vancomycin Inj 1,250 MG in Sodium Chlor 0.9% Inj 250 ML IV.SIG SCH (15:23)
--- NOTE | 2018-07-13 16:08 | P.PNPAL ---
Reason for Visit Reason for visit: a. To assist with evaluation and management of symptoms including: pain, debility b. To assist medical decision maker(s) with: better understanding of current medical conditions; weighing benefits/burdens of medical treatment options; making medical treatment decisions. Subjective Subjective/Interval History: Ms. Miranda is a 63 year [facility] resident who presented to [place] ED on 07/06/18 for evaluation of hypotension (BP 72/58) and bandemia on outpatient labs. 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 She remained hospitalized until Mar, 2018 when she was discharged to [facility]. After being evaluated in the ED, the patient was admitted for further evaluation and medical management of sepsis, C. difficile, dehydration and hypotension. Patient remains on vancomycin and cefepime. Clinical data: * Afebrile; pulse 80, respirations 18, BP 110/75, oxygen saturation 90% on 2 L via nasal cannula * WBC: 8.2, hemoglobin 9.2, hematocrit 29.2, platelets 258, neutrophils 71.7% * Sodium: 153, potassium 4.3, chloride 121, carbon dioxide 25.5, glucose 102, calcium 7.5 * BUN: 18, creatinine 0.40, GFR >89 * Blood cultures were positive for coag negative staph and MRSA as well as pseudomonas aeruginosa. Repeat culture from 07/11/18 remains negative today. * Wound cultures were positive for MRSA as well as pseudomonas aeruginosa. * Urine culture-growing Proteus mirabilis Patient is minimally responsive and dependent for all care. She tracks with her eyes; she is unable to follow commands. She is tolerating artificial nutrition; PEG tube showing no evidence of infection. Given patient's ongoing diarrhea secondary to C. difficile, it will be difficult to control the sacral wound. Palliative Care was consulted to assist with symptom management and to discuss with the family the benefits and burdens of her current illnesses and the options regarding future care. Attempted to contact patient's son and daughter. Daughter's contact information is no longer valid. Message left for patient's son (Gerardo) at [phone]. Spoke with patient's brother (King Elsy) at bedside. He will attempt to contact the patient's children as well. Advance Directives Advance Directives Date on File: 09/06/18 Health Care Surrogate Name and Number: Son, Henri Birmingham, designated HCS. Daughter, Geri, is alternate HCS Documented care wishes:: No known documented care wishes have been completed Objective Vital Signs: Vital Signs 07/12/18 16:00 07/12/18 20:00 07/13/18 00:00 Temperature 98.3 F 97.7 F 97.7 F Pulse Rate 85 84 82 Respiratory Rate 17 16 16 Blood Pressure 119/74 117/65 118/69 Pulse Oximetry 97 100 100 07/13/18 08:00 07/13/18 12:00 Temperature 98.0 F 97.9 F Pulse Rate 78 80 Respiratory Rate 17 17 Blood Pressure 113/77 110/75 Pulse Oximetry 100 98 Intake & Output 07/12/18 07/13/18 07/13/18 18:59 06:59 18:59 Intake Total 2899 / 2899 1052 / 1052 1100 / 1100 Output Total 500 / 500 Balance 2899 / 2899 1052 / 1052 600 / 600 Weight 55.8 kg 55.8 kg Intake: IV 1600 / 1600 450 / 450 1100 / 1100 D5W Inj 1,000 ML @ 75 mls/hr IV 1000 / 1000 1000 / 1000 .CONT .[id number] [facility] Rx#:[id number] Maxipime Inj 2,000 MG In NS Inj 100 / 100 200 / 200 100 / 100 100 ML @ 200 mls/hr IV.SIG Q8H [facility] Rx#:[id number] Vancomycin Inj 1,000 MG In NS 500 / 500 250 / 250 Inj 250 ML @ 250 mls/hr IV.SIG Q12H [facility] Rx#:[id number] Tube Feeding 979 / 979 542 / 542 Tube Irrigant 320 / 320 60 / 60 Output: Stool 500 / 500 Other: Date of Last Bowel Movement 06/12/18 Physical Exam: CONSTITUTIONAL/GENERAL: This is a frail, debilitated female in no acute distress TUBES/LINES/DRAINS: Nasal cannula, PEG, PIV SKIN: No jaundice, rashes, or lesions. PEG tube site without evidence of infection skin temperature appropriate. Not diaphoretic. HEAD: Atraumatic. Normocephalic. EYES: Pupils equal and round and reactive. Extraocular motions intact. No scleral icterus. No injection or drainage. Fundi not examined. ENT: Hearing grossly normal. Nose without bleeding or purulent drainage. NECK: Trachea midline. Supple, nontender. No palpable thyroid enlargement or nodularity. CARDIOVASCULAR: Regular rate and rhythm without murmurs, gallops, or rubs. No JVD. Peripheral pulses symmetric. RESPIRATORY/CHEST: Symmetric, unlabored respirations. Clear to auscultation. Breath sounds equal bilaterally. No wheezes, rales, or rhonchi. GASTROINTESTINAL: Abdomen soft, non-tender, nondistended. Tolerating artificial nutrition. No guarding. Bowel sounds present. GENITOURINARY: Without palpable bladder distension. MUSCULOSKELETAL: Extremities without clubbing, cyanosis, or edema. LYMPHATICS: No palpable cervical or supraclavicular adenopathy. NEUROLOGICAL: Opens her eyes spontaneously, tracks with her eyes. Unable to make needs known PSYCHIATRIC: No obvious anxiety/depression. No apparent hallucinations or other psychotic thought process. Diagnostic Tests Laboratory: Laboratory Results - last 72 hr 07/10/18 07/10/18 07/11/18 15:40 17:26 00:40 WBC RBC Hgb Hct MCV MCH MCHC RDW Plt Count MPV Neut % (Auto) Lymph % (Auto) [place] % (Auto) Eos % (Auto) Baso % (Auto) Neut # (Auto) Lymph # (Auto) [place] # (Auto) Eos # (Auto) Baso # (Auto) WBC Differential Differential Comment Sodium Potassium Chloride Carbon Dioxide Anion Gap BUN Creatinine Estimated GFR POC Glucose 118 H 112 H Random Glucose Calcium Total Bilirubin AST ALT Alkaline Phosphatase C-Reactive Protein Total Protein Albumin Urine Color Yellow Urine Clarity Turbid H Urine pH 8.0 Ur Specific [place] 1.022 Urine Protein 500 or greater Urine Glucose (UA) Negative Urine Ketones Negative Urine Occult Blood Negative Urine Nitrate Positive H Urine Bilirubin Negative Urine Urobilinogen Less than 2 Ur Leukocyte Esterase Small H Urine RBC Urine WBC Triple Phos Crystals Many H Urine Bacteria Many H Hyaline Casts 61 Urine Mucus Many H Micro UA Comment Cath-culture ind Ur Microscopic Review Not Reportable Urine Culture Comments Cath-cult indicated Vancomycin Trough Hepatitis A IgM Ab Hep Bs Antigen Hep B Core IgM Ab Hep C IgG Ab 07/11/18 07/11/18 07/11/18 07:29 07:29 09:50 WBC 8.2 RBC 3.81 L Hgb 9.7 L Hct 30.7 L MCV 80.7 MCH 25.4 L MCHC 31.5 L RDW 18.1 H Plt Count 296 MPV 9.2 Neut % (Auto) 71.9 H Lymph % (Auto) 16.8 [place] % (Auto) 7.2 Eos % (Auto) 3.6 Baso % (Auto) 0.5 Neut # (Auto) 5.9 Lymph # (Auto) 1.4 [place] # (Auto) 0.6 Eos # (Auto) 0.3 Baso # (Auto) 0.0 WBC Differential . Differential Comment Auto diff final Sodium 162 H* Potassium 4.6 Chloride 131 H Carbon Dioxide 25.1 Anion Gap 6 BUN 30 H Creatinine 0.58 Estimated GFR Greater than 89 POC Glucose 132 H Random Glucose 107 H Calcium 7.7 L Total Bilirubin 0.1 L AST 35 ALT 34 Alkaline Phosphatase 52 C-Reactive Protein Total Protein 5.5 L Albumin 1.8 L Urine Color Urine Clarity Urine pH Ur Specific [place] Urine Protein Urine Glucose (UA) Urine Ketones Urine Occult Blood Urine Nitrate Urine Bilirubin Urine Urobilinogen Ur Leukocyte Esterase Urine RBC Urine WBC Triple Phos Crystals Urine Bacteria Hyaline Casts Urine Mucus Micro UA Comment Ur Microscopic Review Urine Culture Comments Vancomycin Trough Hepatitis A IgM Ab Hep Bs Antigen Hep B Core IgM Ab Hep C IgG Ab 07/11/18 07/11/18 07/11/18 18:53 18:53 20:09 WBC RBC Hgb Hct MCV MCH MCHC RDW Plt Count MPV Neut % (Auto) Lymph % (Auto) [place] % (Auto) Eos % (Auto) Baso % (Auto) Neut # (Auto) Lymph # (Auto) [place] # (Auto) Eos # (Auto) Baso # (Auto) WBC Differential Differential Comment Sodium Potassium Chloride Carbon Dioxide Anion Gap BUN Creatinine Estimated GFR POC Glucose 113 H Random Glucose Calcium Total Bilirubin AST ALT Alkaline Phosphatase C-Reactive Protein 2.60 H Total Protein Albumin Urine Color Urine Clarity Urine pH Ur Specific [place] Urine Protein Urine Glucose (UA) Urine Ketones Urine Occult Blood Urine Nitrate Urine Bilirubin Urine Urobilinogen Ur Leukocyte Esterase Urine RBC Urine WBC Triple Phos Crystals Urine Bacteria Hyaline Casts Urine Mucus Micro UA Comment Ur Microscopic Review Urine Culture Comments Vancomycin Trough Hepatitis A IgM Ab Nonreactive Hep Bs Antigen Nonreactive Hep B Core IgM Ab Reactive H Hep C IgG Ab Nonreactive 07/12/18 07/12/18 07/12/18 06:10 06:10 07:30 WBC 8.2 RBC 3.59 L Hgb 9.2 L Hct 29.2 L MCV 81.2 MCH 25.5 L MCHC 31.4 L RDW 18.0 H Plt Count 258 MPV 9.2 Neut % (Auto) 71.7 H Lymph % (Auto) 17.4 [place] % (Auto) 7.4 Eos % (Auto) 3.1 Baso % (Auto) 0.4 Neut # (Auto) 5.9 Lymph # (Auto) 1.4 [place] # (Auto) 0.6 Eos # (Auto) 0.3 Baso # (Auto) 0.0 WBC Differential . Differential Comment Auto diff final Sodium 156 H* Potassium 4.3 Chloride 126 H Carbon Dioxide 24.9 Anion Gap 5 BUN 23 H Creatinine 0.39 L Estimated GFR Greater than 89 POC Glucose 97 Random Glucose 102 Calcium 7.6 L Total Bilirubin 0.2 AST 37 ALT 36 Alkaline Phosphatase 78 C-Reactive Protein Total Protein 5.2 L Albumin 1.6 L Urine Color Urine Clarity Urine pH Ur Specific [place] Urine Protein Urine Glucose (UA) Urine Ketones Urine Occult Blood Urine Nitrate Urine Bilirubin Urine Urobilinogen Ur Leukocyte Esterase Urine RBC Urine WBC Triple Phos Crystals Urine Bacteria Hyaline Casts Urine Mucus Micro UA Comment Ur Microscopic Review Urine Culture Comments Vancomycin Trough Hepatitis A IgM Ab Hep Bs Antigen Hep B Core IgM Ab Hep C IgG Ab 07/12/18 07/12/18 07/12/18 12:12 17:38 21:23 WBC RBC Hgb Hct MCV MCH MCHC RDW Plt Count MPV Neut % (Auto) Lymph % (Auto) [place] % (Auto) Eos % (Auto) Baso % (Auto) Neut # (Auto) Lymph # (Auto) [place] # (Auto) Eos # (Auto) Baso # (Auto) WBC Differential Differential Comment Sodium Potassium Chloride Carbon Dioxide Anion Gap BUN Creatinine Estimated GFR POC Glucose 112 H 99 115 H Random Glucose Calcium Total Bilirubin AST ALT Alkaline Phosphatase C-Reactive Protein Total Protein Albumin Urine Color Urine Clarity Urine pH Ur Specific [place] Urine Protein Urine Glucose (UA) Urine Ketones Urine Occult Blood Urine Nitrate Urine Bilirubin Urine Urobilinogen Ur Leukocyte Esterase Urine RBC Urine WBC Triple Phos Crystals Urine Bacteria Hyaline Casts Urine Mucus Micro UA Comment Ur Microscopic Review Urine Culture Comments Vancomycin Trough Hepatitis A IgM Ab Hep Bs Antigen Hep B Core IgM Ab Hep C IgG Ab 07/13/18 07/13/18 07/13/18 03:45 07:46 12:34 WBC RBC Hgb Hct MCV MCH MCHC RDW Plt Count MPV Neut % (Auto) Lymph % (Auto) [place] % (Auto) Eos % (Auto) Baso % (Auto) Neut # (Auto) Lymph # (Auto) [place] # (Auto) Eos # (Auto) Baso # (Auto) WBC Differential Differential Comment Sodium 153 H Potassium 4.3 Chloride 121 H Carbon Dioxide 25.5 Anion Gap 7 BUN 18 Creatinine 0.40 L Estimated GFR Greater than 89 POC Glucose 113 H 118 H Random Glucose 102 Calcium 7.5 L Total Bilirubin AST ALT Alkaline Phosphatase C-Reactive Protein Total Protein Albumin Urine Color Urine Clarity Urine pH Ur Specific [place] Urine Protein Urine Glucose (UA) Urine Ketones Urine Occult Blood Urine Nitrate Urine Bilirubin Urine Urobilinogen Ur Leukocyte Esterase Urine RBC Urine WBC Triple Phos Crystals Urine Bacteria Hyaline Casts Urine Mucus Micro UA Comment Ur Microscopic Review Urine Culture Comments Vancomycin Trough 14.5 H Hepatitis A IgM Ab Hep Bs Antigen Hep B Core IgM Ab Hep C IgG Ab Result Diagrams: 07/12/18 06:10 07/13/18 03:45 Microbiology: Microbiology 07/11/18 18:48 Aerobic Blood Culture - Preliminary Blood - Peripheral No growth in 2 days Anaerobic Blood Culture - Preliminary No growth in 2 days 07/11/18 18:53 Aerobic Blood Culture - Preliminary Blood - Peripheral No growth in 2 days Anaerobic Blood Culture - Preliminary No growth in 2 days 07/10/18 15:40 Urine Culture - Final Catheterized Urine Proteus mirabilis 07/06/18 21:00 Aerobic Blood Culture - Final Blood - Peripheral Staphylococcus coag negative Pseudomonas aeruginosa Anaerobic Blood Culture - Final No growth in 5 days Imaging: Chest X-Ray 07/06/18 20:33 CONCLUSION: No acute cardiopulmonary process. Assessment and Plan - Disease Oriented Problem List (1) History of CVA (cerebrovascular accident) (2) Bacteremia (3) Urinary tract infection (4) Sepsis (5) C. difficile diarrhea (6) Decubitus ulcer - Symptom Scale (1) Pain 0-10 Scale: Unable to quantify (2) Debility 0-10 Scale: Unable to quantify Pertinent Non-Medical Issues: Psychosocial: Patient was born in [place]. She has 5 brothers and 5 sisters. Her childhood was described as happy. Patient has a history of homelessness and has been arrested for trespassing. She graduated from high school, then went to trade school. 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 Patient was when she was 21 years old but was 3 years later. Patient had 2 sons and 1 daughter. Patient has noncompliance with her medical regimen. She was Brock acted in the past secondary to delusions, paranoia and visual/auditory hallucinations. Spiritual: Zoroastrian latonya Legal: Son, Henri Birmignham, is designated as the healthcare surrogate decision maker. Daughter, Geri, is the alternate healthcare surrogate decision maker Ethical issues impacting care: No known ethical issues impacting care at this time. Important Contacts: Aleena Wallace [phone]. (This number no longer belongs to Geri) Henri Birmingham [phone], . NEWEST NUMBER PROVIDED: [phone] Prognosis: Patient is a frail, cachectic custodial resident status post CVA in April, with residual hemiparesis and aphasia. She is nonverbal and dependent for all care. She is now admitted with sepsis, C. difficile and a stage IV sacral decubitus wound. Patient's condition is guarded. She is at risk for deterioration if the source of infection cannot be controlled. Code Status: Full Code Plan: * FULL CODE * Decision making: Patient is unable to participate in establishment of medical treatment goals s/p CVA with residual hemiparesis and aphasia. She designated her son, Henri Birmingham, as her health care surrogate decision maker. Daughter, Aleena Wallace, is the alternate health care surrogate. * GOALS AGGRESSIVE * Discussed patient with RN (Faina) and Ari Morin APRN. Attended MDR * Symptom management: == Debility: Patient has resided in a NH status post CVA in 04/2017 with residual hemiparesis and aphasia. She is dependent for all care. She is able to track with her eyes. she is unable to make her needs known. Extremities are contracted. == Pain:Likely sources of pain are bedbound status, invasive lines, large tunnelled sacral decubitus, sepsis, C. difficile infection, contractures. She is receiving tramadol 50 mg BID prior to admission. Monitor for signs and symptoms of nonverbal pain such as grimacing, moaning. May want to consider restarting tramadol. * Attempted to contact patient's son and daughter. Message left for patient son (Henri) at [phone]. Spoke with patient's brother (King Elsy) at bedside. He will attempt to contact the patient's children as well. * Palliative care will continue to follow this patient throughout her hospitalization to establish stress, assist with symptom management and clarification of medical treatment goals. Attestation Attestation: To help prompt me to consider important information that might be impacting today's encounter and assessment, information from prior notes written by myself or my colleagues may have been "brought forward" into today's note. My signature on this note, however, is an attestation that I personally performed the exam, history, and/or decision-making noted today, and, unless otherwise indicated, the interactions with patient, family, and staff as well as the review of records all occurred today. I also attest that the listed assessment and stated plan reflect my best clinical judgment today based on the combination of historical information, prior notes, and today's exam/ interactions. When time spent is documented, it refers only to time spent today by the signer, or if indicated, combined time spent today by collaborating physician/nurse practitioner.
[2018-07-14] MEDS: Vancomycin Inj 1,250 MG in Sodium Chlor 0.9% Inj 250 ML IV.SIG SCH ×2 (02:28→16:00)
[2018-07-14 07:45] LABS: Anion Gap 10 meq/L (5-15); Blood Urea Nitrogen 15 mg/dL (7-18); Calcium 7.5 mg/dL (8.5-10.1); Carbon Dioxide 24.2 meq/L (21.0-32.0); Chloride 117 meq/L (98-107); Glomerular Filtration Rate Greater Than 89 mL/min (>89); Glucose,Random 94 mg/dL (74-106); Sodium 151 meq/L (136-145)
[2018-07-14] MEDS: Insulin NovoLOG Aspart Correctional Sugar Inj SQ SCH ×4 (08:03→21:11)
[2018-07-14] MEDS: Lactobacillus Acidophilus/L. Spores Tablet G-TUBE SCH ×3 (10:01→18:16)
[2018-07-14] MEDS: Dextrose 5% in Water Inj 1,000 ML IV.CONT SCH (10:42)
--- NOTE | 2018-07-14 11:29 | P.PNIM ---
Subjective Interval history: Follow-up for bacteremia. Asked patient if she was doing well and she shook her head yes. Asked patient if she was having any pain and she shook her head no. Physical Exam Vital signs: Vital Signs 07/13/18 12:00 07/13/18 20:00 07/14/18 00:00 Temperature 97.9 F 98.4 F 98.2 F Pulse Rate 80 81 80 Respiratory Rate 17 15 15 Blood Pressure 110/75 117/72 115/70 Pulse Oximetry 98 99 99 07/14/18 04:00 07/14/18 08:00 Temperature 98 F 97.5 F L Pulse Rate 80 88 Respiratory Rate 16 17 Blood Pressure 110/71 123/83 Pulse Oximetry 99 99 Intake & Output 07/13/18 07/14/18 07/14/18 18:59 06:59 18:59 Intake Total 1462.5 / 1462.5 1851.5 / 1851.5 1100 / 1100 Output Total 500 / 500 Balance 962.5 / 962.5 1851.5 / 1851.5 1100 / 1100 Weight 123 lb 0.287 oz 123 lb 7.342 oz Intake: IV 1462.5 / 1462.5 1362.5 / 1362.5 1100 / 1100 D5W Inj 1,000 ML @ 75 mls/hr IV 1000 / 1000 1000 / 1000 1000 / 1000 .CONT .[id number] [facility] Rx#:[id number] Maxipime Inj 2,000 MG In NS Inj 200 / 200 100 / 100 100 / 100 100 ML @ 200 mls/hr IV.SIG Q8H [facility] Rx#:[id number] Vancomycin Inj 1,250 MG In NS 262.5 / 262.5 262.5 / 262.5 Inj 250 ML @ 250 mls/hr IV.SIG Q12H [facility] Rx#:[id number] Tube Feeding 489 / 489 Output: Stool 500 / 500 Other: Date of Last Bowel Movement 06/12/18 Narrative: GENERAL: Well-developed fair-nourished. Frail, chronically ill-appearing. In no acute distress. SKIN: Warm and dry. No lesions noted. CARDIOVASCULAR: Regular rate and rhythm. No murmur appreciated. RESPIRATORY: No accessory muscle use. Clear to auscultation. Breath sounds equal bilaterally. GASTROINTESTINAL: Abdomen soft, non-tender, nondistended. Bowel sounds x4. PEG and rectal tubes in place. MUSCULOSKELETAL: No obvious deformities. No clubbing or cyanosis. No edema. NEUROLOGICAL: Awake and alert. Tracks and can shake her head some to yes or no questions. Does not move upper and lower extremities spontaneously. Nonverbal. - Urinary Catheter Management Indwelling Urethral Catheter Cath placed during this visit: yes, but has since been removed by the nurse Reason for continuing: Severe pressure ulcer/wound Insertion date: 07/12/18 Insertion time: 01:00 Removal date: 07/12/18 Removal time: 12:50 Results - Labs CBC & Chem 7: 07/12/18 06:10 07/14/18 05:41 Laboratory Results - last 24 hr 07/13/18 07/13/18 07/13/18 12:34 17:26 20:44 Sodium Potassium Chloride Carbon Dioxide Anion Gap BUN Creatinine Estimated GFR POC Glucose 118 H 89 118 H Random Glucose Calcium 07/14/18 07/14/18 07/14/18 05:41 07:50 10:53 Sodium 151 H Potassium 4.0 Chloride 117 H Carbon Dioxide 24.2 Anion Gap 10 BUN 15 Creatinine 0.35 L Estimated GFR Greater than 89 POC Glucose 116 H 96 Random Glucose 94 Calcium 7.5 L Microbiology 07/11/18 18:48 Blood - Peripheral Aerobic Blood Culture - Preliminary No growth in 3 days 07/11/18 18:48 Blood - Peripheral Anaerobic Blood Culture - Preliminary No growth in 3 days 07/11/18 18:53 Blood - Peripheral Aerobic Blood Culture - Preliminary No growth in 3 days 07/11/18 18:53 Blood - Peripheral Anaerobic Blood Culture - Preliminary No growth in 3 days Assessment and Plan - Plan 63 year old female with a history of hemorrhagic CVA and severe chronic neurological deficit, admitted with diarrhea from C. Diff. Sepsis + Blood cultures, started on IV vancomycin -ID consulted, greatly appreciate assistance, started patient on cefepime -Likely source of sepsis is stage IV coccyx ulcer -Follow cultures Hypernatremia Dehydration These appears secondary to C. difficile colitis Continue D5W, sodium levels continue to improve C Diff Colitis Leukocytosis PEG Vancomycin Isolation Follow for improvement Dehydration BECKY Improved status post IVF Hx of Hemorrhagic CVA Chronic severe neurological deficits Supportive Care Palliative care on board Chronic sacral ulcer Stage IV s/p wound care physician consult, appreciate recommendations Patient would benefit from diverting colostomy however likely too malnourished to tolerate surgery DVT Prophylaxis SCDs Discharge Planning: Follow-up cultures and final ID recommendations
[2018-07-14] MEDS ORDERED: Pharmacy Ordered Lab Info OTHER SCH (13:45)
[2018-07-15] MEDS: Dextrose 5% in Water Inj 1,000 ML IV.CONT SCH ×2 (01:19→14:42)
[2018-07-15] MEDS: Vancomycin Inj 1,250 MG in Sodium Chlor 0.9% Inj 250 ML IV.SIG SCH ×2 (02:39→14:30)
[2018-07-15 07:02] LABS: Hematocrit 30.6 % (35.0-46.0); Hemoglobin 9.7 gm/dL (11.6-15.3); Mean Corpuscular HGB Conc 31.8 % (32.0-36.0); Mean Corpuscular Hemoglobin 25.7 pg (27.0-34.0); Mean Platelet Volume 9.1 fL (7.0-11.0); Platelet Count 205 th/mm3 (150-450); Red Blood Count 3.77 mil/mm3 (4.00-5.30); White Blood Count 5.3 th/mm3 (4.0-11.0)
[2018-07-15] MEDS: Insulin NovoLOG Aspart Correctional Sugar Inj SQ SCH ×4 (07:26→20:48)
[2018-07-15 07:41] LABS: Anion Gap 7 meq/L (5-15); Blood Urea Nitrogen 14 mg/dL (7-18); Calcium 7.7 mg/dL (8.5-10.1); Carbon Dioxide 25.7 meq/L (21.0-32.0); Chloride 114 meq/L (98-107); Glomerular Filtration Rate Greater Than 89 mL/min (>89); Glucose,Random 85 mg/dL (74-106); Sodium 147 meq/L (136-145)
[2018-07-15] MEDS: Lactobacillus Acidophilus/L. Spores Tablet G-TUBE SCH ×3 (09:20→18:22)
--- NOTE | 2018-07-15 13:05 | P.PNIM ---
Subjective Interval history: Follow-up for bacteremia. 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, with residual hemiparesis and aphasia Physical Exam Vital signs: Vital Signs 07/14/18 16:00 07/14/18 18:44 07/14/18 20:00 Temperature 97.3 F L 97.7 F Pulse Rate 80 79 Respiratory Rate 17 18 18 Blood Pressure 137/84 123/84 Pulse Oximetry 99 98 07/15/18 00:00 07/15/18 08:00 07/15/18 12:00 Temperature 99.3 F 97.8 F 98.0 F Pulse Rate 77 85 83 Respiratory Rate 18 17 16 Blood Pressure 117/66 127/76 131/66 Pulse Oximetry 100 99 100 Intake & Output 07/14/18 07/15/18 07/15/18 18:59 06:59 18:59 Intake Total 1930.5 / 1930.5 1462.5 / 1462.5 736 / 736 Output Total 550 / 550 1000 / 1000 Balance 1380.5 / 1380.5 462.5 / 462.5 736 / 736 Weight 56.3 kg Intake: IV 1362.5 / 1362.5 1462.5 / 1462.5 100 / 100 D5W Inj 1,000 ML @ 75 mls/hr IV 1000 / 1000 1000 / 1000 .CONT .[id number] [facility] Rx#:[id number] Maxipime Inj 2,000 MG In NS Inj 100 / 100 200 / 200 100 / 100 100 ML @ 200 mls/hr IV.SIG Q8H [facility] Rx#:[id number] Vancomycin Inj 1,250 MG In NS 262.5 / 262.5 262.5 / 262.5 Inj 250 ML @ 250 mls/hr IV.SIG Q12H [facility] Rx#:[id number] Tube Feeding 568 / 568 536 / 536 Tube Irrigant 100 / 100 Output: Urine 1000 / 1000 Urine Amount (Catheter) 550 / 550 Indwelling Urethral Catheter 550 / 550 Other: Date of Last Bowel Movement 06/12/18 Narrative: GENERAL: Well-developed fair-nourished. Frail, chronically ill-appearing. In no acute distress. SKIN: Warm and dry. No lesions noted. CARDIOVASCULAR: Regular rate and rhythm. No murmur appreciated. RESPIRATORY: No accessory muscle use. Clear to auscultation. Breath sounds equal bilaterally. GASTROINTESTINAL: Abdomen soft, non-tender, nondistended. Bowel sounds x4. PEG and rectal tubes in place. MUSCULOSKELETAL: No obvious deformities. No clubbing or cyanosis. No edema. NEUROLOGICAL: Awake. Tracks and can shake her head some to yes or no questions. Nonverbal. CVA in April, with residual hemiparesis and aphasia - Urinary Catheter Management Indwelling Urethral Catheter Cath placed during this visit: yes, but has since been removed by the nurse Reason for continuing: Severe pressure ulcer/wound Insertion date: 07/12/18 Insertion time: 01:00 Removal date: 07/12/18 Removal time: 12:50 Results - Labs CBC & Chem 7: 07/15/18 05:04 07/15/18 05:04 Laboratory Results - last 24 hr 07/11/18 07/14/18 07/14/18 18:53 15:25 15:59 WBC RBC Hgb Hct MCV MCH MCHC RDW Plt Count MPV Sodium Potassium Chloride Carbon Dioxide Anion Gap BUN Creatinine Estimated GFR POC Glucose 106 Random Glucose Calcium Vancomycin Trough 17.6 H Absolute Lymphocytes 1711 % CD3 Cells 66 Absolute CD3 Count 1121 % CD3-/CD16+/CD56+ 17 Abs CD3-/CD16+/CD56+ 308 % CD4 Cells 38 Absolute CD4 Count 635 T-Help/Suppress Ratio 1.50 % CD8 Cells 26 Absolute CD8 Count 433 % CD19 Cells 16 Absolute CD19 Count 283 07/14/18 07/15/18 07/15/18 20:05 05:04 05:04 WBC 5.3 RBC 3.77 L Hgb 9.7 L Hct 30.6 L MCV 81.0 MCH 25.7 L MCHC 31.8 L RDW 18.0 H Plt Count 205 MPV 9.1 Sodium 147 H Potassium 4.0 Chloride 114 H Carbon Dioxide 25.7 Anion Gap 7 BUN 14 Creatinine 0.32 L Estimated GFR Greater than 89 POC Glucose 117 H Random Glucose 85 Calcium 7.7 L Vancomycin Trough Absolute Lymphocytes % CD3 Cells Absolute CD3 Count % CD3-/CD16+/CD56+ Abs CD3-/CD16+/CD56+ % CD4 Cells Absolute CD4 Count T-Help/Suppress Ratio % CD8 Cells Absolute CD8 Count % CD19 Cells Absolute CD19 Count 07/15/18 07/15/18 07:25 11:18 WBC RBC Hgb Hct MCV MCH MCHC RDW Plt Count MPV Sodium Potassium Chloride Carbon Dioxide Anion Gap BUN Creatinine Estimated GFR POC Glucose 107 108 Random Glucose Calcium Vancomycin Trough Absolute Lymphocytes % CD3 Cells Absolute CD3 Count % CD3-/CD16+/CD56+ Abs CD3-/CD16+/CD56+ % CD4 Cells Absolute CD4 Count T-Help/Suppress Ratio % CD8 Cells Absolute CD8 Count % CD19 Cells Absolute CD19 Count Microbiology 07/11/18 18:48 Blood - Peripheral Aerobic Blood Culture - Preliminary No growth in 4 days 07/11/18 18:48 Blood - Peripheral Anaerobic Blood Culture - Preliminary No growth in 4 days 07/11/18 18:53 Blood - Peripheral Aerobic Blood Culture - Preliminary No growth in 4 days 07/11/18 18:53 Blood - Peripheral Anaerobic Blood Culture - Preliminary No growth in 4 days Assessment and Plan - Plan 63 year old female with a history of hemorrhagic CVA and severe chronic neurological deficit, admitted with diarrhea from C. Diff. Sepsis + Blood cultures, started on IV vancomycin -ID consulted, greatly appreciate assistance, started patient on cefepime -Likely source of sepsis is stage IV coccyx ulcer -Follow cultures Hypernatremia Dehydration These appears secondary to C. difficile colitis Continue D5W, sodium levels continue to improve recheck BMP in AM C Diff Colitis Leukocytosis PEG Vancomycin Isolation Continues to have liquid stool with digni sheild in place Follow for improvement Dehydration BECKY Improved status post IVF Hx of Hemorrhagic CVA Chronic severe neurological deficits Supportive Care Palliative care on board, tried to contact son 07/13 but no return call. Chronic sacral ulcer Stage IV s/p wound care physician consult, appreciate recommendations Patient would benefit from diverting colostomy however likely too malnourished to tolerate surgery DVT Prophylaxis SCDs Discharge Planning: Follow-up cultures and final ID recommendations Case discussed with supervising physician Dr. Fischer
[2018-07-15] MEDS ORDERED: Pharmacy Ordered Lab Info OTHER ONE (13:45)
[2018-07-16] MEDS: Dextrose 5% in Water Inj 1,000 ML IV.CONT SCH ×2 (02:31→16:21)
[2018-07-16] MEDS: Vancomycin Inj 1,250 MG in Sodium Chlor 0.9% Inj 250 ML IV.SIG SCH (03:17)
[2018-07-16 07:47] LABS: Anion Gap 5 meq/L (5-15); Blood Urea Nitrogen 14 mg/dL (7-18); Calcium 7.6 mg/dL (8.5-10.1); Carbon Dioxide 27.7 meq/L (21.0-32.0); Chloride 111 meq/L (98-107); Glomerular Filtration Rate Greater Than 89 mL/min (>89); Glucose,Random 99 mg/dL (74-106); Sodium 144 meq/L (136-145)
[2018-07-16] MEDS: Lactobacillus Acidophilus/L. Spores Tablet G-TUBE SCH ×3 (08:55→17:04)
[2018-07-16] MEDS: Insulin NovoLOG Aspart Correctional Sugar Inj SQ SCH ×4 (09:01→20:45)
--- NOTE | 2018-07-16 10:57 | P.PNID ---
Subjective Remarks: Ms. Miranda is a 63-year-old -[place] female with past medical history of hypertension, CVA with residual hemiparesis as well as aphasia as well as history of C. difficile who [facility] due to hypotension with a blood pressure of 72/58. Patient also had bandemia as well as elevated white count on outpatient labs. Patient is unable to provide any history as she is nonverbal from her baseline aphasia. Per records patient was diagnosed with C. difficile on July 06, 2018 and started on Flagyl but due to worsening hypotension and concern for sepsis she was admitted to the hospital. On arrival her blood pressure was 85/59, heart rate 94, O2 sats 98% on room air and she was afebrile. Her creatinine is 1.46 previously 0.45 on March 20, 2018. Her lactic acid was elevated 2.3. Her WBC was normal however she had significant bandemia of 29% her UA was positive and cultures show gram-negative rods. Blood cultures done on admission are positive for coag negative staph, MRSA as well as pseudomonas aeruginosa. Sacral decubitus wound is also positive for MRSA as well as pseudomonas aeruginosa. Patient received a dose of Cipro and Flagyl in the emergency room. Infectious diseases consulted for evaluation and management of sepsis, gram- positive bacteremia, gram-negative bacteremia, gram-negative UTI, possibly infected sacral decubitus wound, C. difficile flare. At the time of my evaluation patient is on a regular floor in room 1718. Patient's bedside nurse informs me that she is nonverbal minimally tracks with her eye but otherwise just lays in bed with no emotional response either. Patient has a Flexi-Seal bag due to ongoing diarrhea. She also has a sacral decubitus wound which appears to be tunneled down to the bone. She is dark skin so is difficult to shelf filler if she has surrounding cellulitis. But overall the wound base does not appear to be fairly light red and beefy. No obvious discharge noted. Patient also has a PEG tube in place with no obvious evidence of infection. She appears to be tolerating her tube feeds based on my discussion with the nurse. Patient has chronic contractors of her extremities and has to be turned frequently Overnight events reviewed. No fever No rash Diarrhea Opens eyes, Nods yes no to questions appropriately. Flat affect. Antibiotics: Cefepime IV Vanco IV Vanco oral Lines: Lines ok Past Medical History: reviewed Allergies/Adverse Reactions: Allergies No Known Allergies Allergy (Verified 07/06/18 20:47) Objective Vital Signs 07/15/18 12:00 07/15/18 16:00 07/15/18 20:00 Temperature 98.0 F 97.6 F 98.5 F Pulse Rate 83 79 80 Respiratory Rate 16 17 18 Blood Pressure 131/66 133/78 119/68 Pulse Oximetry 100 100 100 07/16/18 00:00 07/16/18 08:00 Temperature 98.9 F 98.0 F Pulse Rate 76 98 H Respiratory Rate 18 17 Blood Pressure 115/75 125/71 Pulse Oximetry 98 98 Intake & Output 07/15/18 07/16/18 07/16/18 18:59 06:59 18:59 Intake Total 1598.5 / 1598.5 1250 / 1250 100 / 100 Output Total 1999 / 1999 1500 / 1500 Balance -401.5 / -401.5 -250 / -250 100 / 100 Weight 56.7 kg Intake: IV 962.5 / 962.5 600 / 600 100 / 100 D5W Inj 1,000 ML @ 75 mls/hr IV 600 / 600 400 / 400 .CONT .[id number] [facility] Rx#:[id number] Maxipime Inj 2,000 MG In NS Inj 100 / 100 200 / 200 100 / 100 100 ML @ 200 mls/hr IV.SIG Q8H [facility] Rx#:[id number] Vancomycin Inj 1,250 MG In NS 262.5 / 262.5 Inj 250 ML @ 250 mls/hr IV.SIG Q12H [facility] Rx#:[id number] Oral 0 / 0 Tube Feeding 536 / 536 550 / 550 Tube Irrigant 100 / 100 100 / 100 Output: Urine 1000 / 1000 1500 / 1500 Stool 1000 / 1000 Other: Date of Last Bowel Movement 06/12/18 06/12/18 07/11/18 18:48 Blood - Peripheral Aerobic Blood Culture - Preliminary No growth in 4 days 07/11/18 18:48 Blood - Peripheral Anaerobic Blood Culture - Preliminary No growth in 4 days 07/11/18 18:53 Blood - Peripheral Aerobic Blood Culture - Preliminary No growth in 4 days 07/11/18 18:53 Blood - Peripheral Anaerobic Blood Culture - Preliminary No growth in 4 days Lab - Hematology Results 07/15/18 05:04 WBC 5.3 RBC 3.77 L Hgb 9.7 L Hct 30.6 L MCV 81.0 MCH 25.7 L MCHC 31.8 L RDW 18.0 H Plt Count 205 MPV 9.1 Lab - Chemistry Results 07/14/18 07/14/18 07/14/18 10:53 15:59 20:05 Sodium Potassium Chloride Carbon Dioxide Anion Gap BUN Creatinine Estimated GFR POC Glucose 96 106 117 H Random Glucose Calcium 07/15/18 07/15/18 07/15/18 05:04 07:25 11:18 Sodium 147 H Potassium 4.0 Chloride 114 H Carbon Dioxide 25.7 Anion Gap 7 BUN 14 Creatinine 0.32 L Estimated GFR Greater than 89 POC Glucose 107 108 Random Glucose 85 Calcium 7.7 L 07/15/18 07/15/18 07/16/18 15:25 19:37 06:25 Sodium 144 Potassium 4.0 Chloride 111 H Carbon Dioxide 27.7 Anion Gap 5 BUN 14 Creatinine 0.35 L Estimated GFR Greater than 89 POC Glucose 107 101 Random Glucose 99 Calcium 7.6 L 07/16/18 07:56 Sodium Potassium Chloride Carbon Dioxide Anion Gap BUN Creatinine Estimated GFR POC Glucose 105 Random Glucose Calcium Imaging: ITS Impressions Chest X-Ray 07/06/18 20:33 CONCLUSION: No acute cardiopulmonary process. Physical Exam: GENERAL: Thin built, cachectic appearing, chronically ill-appearing female patient SKIN: Cool and dry, no generalized rash HEAD: Atraumatic. Normocephalic. No temporal or scalp tenderness. EYES: Pupils equal round and reactive. Scleral icterus. No injection or drainage. No petechia ENT: Gross examination nothing abnormal detected NECK: Trachea midline. Supple, nontender, no meningeal signs. CARDIOVASCULAR: HS audible. RESPIRATORY: Clear to auscultation bilaterally. GASTROINTESTINAL: Abdomen soft nontender. PEG tube site okay. MUSCULOSKELETAL: Extremities with contractures noted. NEUROLOGICAL: Opens her eyes spontaneously, tracks with her eyes. No emotions on her face. Sacral decubitus appears to be tunneling down to the bone. Ulcer base appears to be red and beefy with no obvious purulence noted. No surrounding erythema noted. The patient is dark skin. Psych difficult to assess. IV line sites ok. Assessment and Plan - Plan Possible sepsis present on admission patient is extremely hypoalbuminemic and malnourished may not mount typical SIRS response. Has significant bandemia and lactic acidosis. Pseudomonas aeruginosa bacteremia MRSA bacteremia Coag negative staph bacteremia Gram-negative UTI has a Cruz in place.? Catheter associated UTI with catheter likely present on admission. Sacral decubitus ulcer with tunneling likely osteomyelitis could be a possible source of infection. C. difficile infection with ongoing large-volume diarrhea Recommendations Continue cefepime IV Continue vancomycin IV target trough 15-20 Continue oral vancomycin for C. difficile Follow blood cultures Patient appreciate palliative care input discussed case with them. Patient reportedly has a son who is very involved in prior admissions. Follow cultures Follow clinical course Discussed with VIVIANA Amaya for Hepas.
--- NOTE | 2018-07-16 13:30 | P.PN ---
Subjective Interval history: Follow-up visit for patient with CVA with sepsis, diarrhea due to C. difficile and chronic sacral ulcer. Patient seen and examined resting in bed, appears to be in no acute distress. Nurse reports ongoing liquid stools with well- functioning dignity shield. Family visited over the weekend, no other acute complaints. Physical Exam Vital signs: Vital Signs 07/15/18 16:00 07/15/18 20:00 07/16/18 00:00 Temperature 97.6 F 98.5 F 98.9 F Pulse Rate 79 80 76 Respiratory Rate 17 18 18 Blood Pressure 133/78 119/68 115/75 Pulse Oximetry 100 100 98 07/16/18 08:00 07/16/18 12:00 Temperature 98.0 F 98.0 F Pulse Rate 98 H 86 Respiratory Rate 17 18 Blood Pressure 125/71 125/79 Pulse Oximetry 98 98 Intake & Output 07/15/18 07/16/18 07/16/18 18:59 06:59 18:59 Intake Total 1598.5 / 1598.5 1250 / 1250 100 / 100 Output Total 1999 / 1999 1500 / 1500 Balance -401.5 / -401.5 -250 / -250 100 / 100 Weight 56.7 kg Intake: IV 962.5 / 962.5 600 / 600 100 / 100 D5W Inj 1,000 ML @ 75 mls/hr IV 600 / 600 400 / 400 .CONT .[id number] [facility] Rx#:[id number] Maxipime Inj 2,000 MG In NS Inj 100 / 100 200 / 200 100 / 100 100 ML @ 200 mls/hr IV.SIG Q8H [facility] Rx#:[id number] Vancomycin Inj 1,250 MG In NS 262.5 / 262.5 Inj 250 ML @ 250 mls/hr IV.SIG Q12H [facility] Rx#:[id number] Oral 0 / 0 Tube Feeding 536 / 536 550 / 550 Tube Irrigant 100 / 100 100 / 100 Output: Urine 1000 / 1000 1500 / 1500 Stool 1000 / 1000 Other: Date of Last Bowel Movement 06/12/18 06/12/18 Narrative: GENERAL: Well-developed fair-nourished. Frail, chronically ill-appearing. In no acute distress. SKIN: Warm and dry. No lesions noted. CARDIOVASCULAR: Regular rate and rhythm. No murmur appreciated. RESPIRATORY: No accessory muscle use. Clear to auscultation. Breath sounds equal bilaterally. GASTROINTESTINAL: Abdomen soft, non-tender, nondistended. Bowel sounds x4. PEG and rectal tubes in place. MUSCULOSKELETAL: No obvious deformities. No clubbing or cyanosis. No edema. NEUROLOGICAL: Awake. Tracks with eyes. Nonverbal. CVA in April, with residual hemiparesis and aphasia - Urinary Catheter Management Indwelling Urethral Catheter Cath placed during this visit: yes, but has since been removed by the nurse Reason for continuing: Severe pressure ulcer/wound Insertion date: 07/12/18 Insertion time: 01:00 Removal date: 07/12/18 Removal time: 12:50 Results - Labs CBC & Chem 7: 07/15/18 05:04 07/16/18 06:25 Laboratory Results - last 24 hr 07/15/18 07/15/18 07/15/18 13:47 15:25 19:37 Sodium Potassium Chloride Carbon Dioxide Anion Gap BUN Creatinine Estimated GFR POC Glucose 107 101 Random Glucose Calcium Vancomycin Trough 29.8 H Random Vancomycin 07/16/18 07/16/18 07/16/18 06:25 07:56 12:09 Sodium 144 Potassium 4.0 Chloride 111 H Carbon Dioxide 27.7 Anion Gap 5 BUN 14 Creatinine 0.35 L Estimated GFR Greater than 89 POC Glucose 105 111 H Random Glucose 99 Calcium 7.6 L Vancomycin Trough Random Vancomycin 25.0 Microbiology 07/11/18 18:48 Blood - Peripheral Aerobic Blood Culture - Final No growth in 5 days 07/11/18 18:48 Blood - Peripheral Anaerobic Blood Culture - Final No growth in 5 days 07/11/18 18:53 Blood - Peripheral Aerobic Blood Culture - Final No growth in 5 days 07/11/18 18:53 Blood - Peripheral Anaerobic Blood Culture - Final No growth in 5 days Assessment and Plan - Plan 63 year old female with a history of hemorrhagic CVA and severe chronic neurological deficit, admitted with diarrhea from C. Diff. Sepsis + Blood cultures, started on IV vancomycin -ID consulted, greatly appreciate assistance, started patient on cefepime -Likely source of sepsis is stage IV coccyx ulcer -Final ID recommendations for antibiotic pending Hyponatremia Dehydration These appears secondary to C. difficile colitis Continue D5W, sodium levels continue to improve Sodium level this morning normalized, recheck BMP in the a.m. C Diff Colitis Leukocytosis PEG Vancomycin Isolation Follow for improvement Dehydration BECKY Follow renal function Avoid nephrotoxins IV Hydration continued Hypotension Treat dehydration Hx of Hemorrhagic CVA Chronic severe neurological deficits Supportive Care Chronic sacral ulcer Stage IV Wound care nurse following Wound care physician consulted Patient would benefit from diverting colostomy however likely too malnourished to tolerate surgery Start Zoloft for possible underlying depression. DVT Prophylaxis SCDs Discussed Condition With: RN and Discharge Planning: Palliative care continues to try to contact children for meeting to establish goals. Once medically stable and final IV recommendations made patient could be discharged to nursing versus snf.
--- NOTE | 2018-07-16 14:51 | P.PNPAL ---
Reason for Visit Reason for visit: a. To assist with evaluation and management of symptoms including: pain, debility b. To assist medical decision maker(s) with: better understanding of current medical conditions; weighing benefits/burdens of medical treatment options; making medical treatment decisions. Subjective Subjective/Interval History: Ms. Miranda is a 63 year [facility] resident who presented to [place] ED on 07/06/18 for evaluation of hypotension (BP 72/58) and bandemia on outpatient labs. Patient had a lengthy hospitalization status post CVA in April,. She remained hospitalized until Mar, 2018 when she was discharged to [facility]. After being evaluated in the ED, the patient was admitted for medical management of sepsis, C. difficile, dehydration and hypotension. On vancomycin and cefepime. Dual visit with Christiane Patel, Palliative Care [employer], for symptom management and clarification of medical treatment goals. Clinical data: * Afebrile; pulse 86, respirations 18, BP 125/79, oxygen saturation 98%, oral temperature 98.0 * Sodium: 144, potassium 4.0, chloride 111, carbon dioxide 27.7, glucose 99, calcium 7.6 * BUN: 14, creatinine 0.35, GFR >89 * Blood cultures were positive for coag negative staph and MRSA as well as pseudomonas aeruginosa. Repeat culture from 07/11/18 were negative * Wound cultures were positive for MRSA as well as pseudomonas aeruginosa. * Urine culture-growing Proteus mirabilis Patient is awake with her eyes open. She appears to understand some what is being said at times. She occasionally nods/shakes her head in response to yes/ no questions. Patient's functional status is poor status post CVA with residual hemiparesis, aphasia, dysphasia. She is dependent for all care. She is tolerating artificial nutrition; PEG tube showing no evidence of infection. Palliative Care attempted to contact patient's son and daughter. Daughter's contact information is no longer valid. Message left for patient's son (Henri) at [phone] and brother (King Isael) at [phone]. Children have been difficult to reach during previous hospitalizations, however patient's brother does visit. Goals have been quite aggressive in the past. Advance Directives Advance Directives Date on File: 07/12/18 Health Care Surrogate Name and Number: Henri Chiu, designated HCS. Daughter, Geri, is alternate HCS Documented care wishes:: No known documented care wishes have been completed Objective Vital Signs: Vital Signs 07/15/18 16:00 07/15/18 20:00 07/16/18 00:00 Temperature 97.6 F 98.5 F 98.9 F Pulse Rate 79 80 76 Respiratory Rate 17 18 18 Blood Pressure 133/78 119/68 115/75 Pulse Oximetry 100 100 98 07/16/18 08:00 07/16/18 12:00 Temperature 98.0 F 98.0 F Pulse Rate 98 H 86 Respiratory Rate 17 18 Blood Pressure 125/71 125/79 Pulse Oximetry 98 98 Intake & Output 07/15/18 07/16/18 07/16/18 18:59 06:59 18:59 Intake Total 1598.5 / 1598.5 1250 / 1250 100 / 100 Output Total 2000 / 1999 1500 / 1500 Balance -401.5 / -401.5 -250 / -250 100 / 100 Weight 56.7 kg Intake: IV 962.5 / 962.5 600 / 600 100 / 100 D5W Inj 1,000 ML @ 75 mls/hr IV 600 / 600 400 / 400 .CONT .[id number] [facility] Rx#:[id number] Maxipime Inj 2,000 MG In NS Inj 100 / 100 200 / 200 100 / 100 100 ML @ 200 mls/hr IV.SIG Q8H [facility] Rx#:[id number] Vancomycin Inj 1,250 MG In NS 262.5 / 262.5 Inj 250 ML @ 250 mls/hr IV.SIG Q12H [facility] Rx#:[id number] Oral 0 / 0 Tube Feeding 536 / 536 550 / 550 Tube Irrigant 100 / 100 100 / 100 Output: Urine 1000 / 1000 1500 / 1500 Stool 1000 / 1000 Other: Date of Last Bowel Movement 06/12/18 06/12/18 Physical Exam: CONSTITUTIONAL/GENERAL: This is a frail, debilitated female in no acute distress TUBES/LINES/DRAINS: Nasal cannula, PEG, PIV SKIN: No jaundice, rashes, or lesions. PEG tube site without evidence of infection skin temperature appropriate. Not diaphoretic. HEAD: Atraumatic. Normocephalic. EYES: Pupils equal and round and reactive. Extraocular motions intact. No scleral icterus. No injection or drainage. Fundi not examined. ENT: Hearing grossly normal. Nose without bleeding or purulent drainage. NECK: Trachea midline. Supple, nontender. No palpable thyroid enlargement or nodularity. CARDIOVASCULAR: Regular rate and rhythm without murmurs, gallops, or rubs. No JVD. Peripheral pulses symmetric. RESPIRATORY/CHEST: Symmetric, unlabored respirations. Clear to auscultation. Breath sounds equal bilaterally. No wheezes, rales, or rhonchi. GASTROINTESTINAL: Abdomen soft, non-tender, nondistended. Tolerating artificial nutrition. No guarding. Bowel sounds present. GENITOURINARY: Without palpable bladder distension. MUSCULOSKELETAL: Extremities without clubbing, cyanosis, or edema. LYMPHATICS: No palpable cervical or supraclavicular adenopathy. NEUROLOGICAL: Opens her eyes spontaneously, tracks with her eyes. Does not follow commands; unable to make needs known. PSYCHIATRIC: No obvious anxiety/depression. No apparent hallucinations or other psychotic thought process. Diagnostic Tests Laboratory: Laboratory Results - last 72 hr 07/11/18 07/13/18 07/13/18 18:53 17:26 20:44 WBC RBC Hgb Hct MCV MCH MCHC RDW Plt Count MPV Sodium Potassium Chloride Carbon Dioxide Anion Gap BUN Creatinine Estimated GFR POC Glucose 89 118 H Random Glucose Calcium Vancomycin Trough Random Vancomycin Absolute Lymphocytes 1711 % CD3 Cells 66 Absolute CD3 Count 1121 % CD3-/CD16+/CD56+ 17 Abs CD3-/CD16+/CD56+ 308 % CD4 Cells 38 Absolute CD4 Count 635 T-Help/Suppress Ratio 1.50 % CD8 Cells 26 Absolute CD8 Count 433 % CD19 Cells 16 Absolute CD19 Count 283 07/14/18 07/14/18 07/14/18 05:41 07:50 10:53 WBC RBC Hgb Hct MCV MCH MCHC RDW Plt Count MPV Sodium 151 H Potassium 4.0 Chloride 117 H Carbon Dioxide 24.2 Anion Gap 10 BUN 15 Creatinine 0.35 L Estimated GFR Greater than 89 POC Glucose 116 H 96 Random Glucose 94 Calcium 7.5 L Vancomycin Trough Random Vancomycin Absolute Lymphocytes % CD3 Cells Absolute CD3 Count % CD3-/CD16+/CD56+ Abs CD3-/CD16+/CD56+ % CD4 Cells Absolute CD4 Count T-Help/Suppress Ratio % CD8 Cells Absolute CD8 Count % CD19 Cells Absolute CD19 Count 07/14/18 07/14/18 07/14/18 15:25 15:59 20:05 WBC RBC Hgb Hct MCV MCH MCHC RDW Plt Count MPV Sodium Potassium Chloride Carbon Dioxide Anion Gap BUN Creatinine Estimated GFR POC Glucose 106 117 H Random Glucose Calcium Vancomycin Trough 17.6 H Random Vancomycin Absolute Lymphocytes % CD3 Cells Absolute CD3 Count % CD3-/CD16+/CD56+ Abs CD3-/CD16+/CD56+ % CD4 Cells Absolute CD4 Count T-Help/Suppress Ratio % CD8 Cells Absolute CD8 Count % CD19 Cells Absolute CD19 Count 07/15/18 07/15/18 07/15/18 05:04 05:04 07:25 WBC 5.3 RBC 3.77 L Hgb 9.7 L Hct 30.6 L MCV 81.0 MCH 25.7 L MCHC 31.8 L RDW 18.0 H Plt Count 205 MPV 9.1 Sodium 147 H Potassium 4.0 Chloride 114 H Carbon Dioxide 25.7 Anion Gap 7 BUN 14 Creatinine 0.32 L Estimated GFR Greater than 89 POC Glucose 107 Random Glucose 85 Calcium 7.7 L Vancomycin Trough Random Vancomycin Absolute Lymphocytes % CD3 Cells Absolute CD3 Count % CD3-/CD16+/CD56+ Abs CD3-/CD16+/CD56+ % CD4 Cells Absolute CD4 Count T-Help/Suppress Ratio % CD8 Cells Absolute CD8 Count % CD19 Cells Absolute CD19 Count 07/15/18 07/15/18 07/15/18 11:18 13:47 15:25 WBC RBC Hgb Hct MCV MCH MCHC RDW Plt Count MPV Sodium Potassium Chloride Carbon Dioxide Anion Gap BUN Creatinine Estimated GFR POC Glucose 108 107 Random Glucose Calcium Vancomycin Trough 29.8 H Random Vancomycin Absolute Lymphocytes % CD3 Cells Absolute CD3 Count % CD3-/CD16+/CD56+ Abs CD3-/CD16+/CD56+ % CD4 Cells Absolute CD4 Count T-Help/Suppress Ratio % CD8 Cells Absolute CD8 Count % CD19 Cells Absolute CD19 Count 07/15/18 07/16/18 07/16/18 19:37 06:25 07:56 WBC RBC Hgb Hct MCV MCH MCHC RDW Plt Count MPV Sodium 144 Potassium 4.0 Chloride 111 H Carbon Dioxide 27.7 Anion Gap 5 BUN 14 Creatinine 0.35 L Estimated GFR Greater than 89 POC Glucose 101 105 Random Glucose 99 Calcium 7.6 L Vancomycin Trough Random Vancomycin 25.0 Absolute Lymphocytes % CD3 Cells Absolute CD3 Count % CD3-/CD16+/CD56+ Abs CD3-/CD16+/CD56+ % CD4 Cells Absolute CD4 Count T-Help/Suppress Ratio % CD8 Cells Absolute CD8 Count % CD19 Cells Absolute CD19 Count 07/16/18 12:09 WBC RBC Hgb Hct MCV MCH MCHC RDW Plt Count MPV Sodium Potassium Chloride Carbon Dioxide Anion Gap BUN Creatinine Estimated GFR POC Glucose 111 H Random Glucose Calcium Vancomycin Trough Random Vancomycin Absolute Lymphocytes % CD3 Cells Absolute CD3 Count % CD3-/CD16+/CD56+ Abs CD3-/CD16+/CD56+ % CD4 Cells Absolute CD4 Count T-Help/Suppress Ratio % CD8 Cells Absolute CD8 Count % CD19 Cells Absolute CD19 Count Result Diagrams: 07/15/18 05:04 07/17/18 05:05 Microbiology: Microbiology 07/11/18 18:48 Aerobic Blood Culture - Final Blood - Peripheral No growth in 5 days Anaerobic Blood Culture - Final No growth in 5 days 07/11/18 18:53 Aerobic Blood Culture - Final Blood - Peripheral No growth in 5 days Anaerobic Blood Culture - Final No growth in 5 days Imaging: Chest X-Ray 07/06/18 20:33 CONCLUSION: No acute cardiopulmonary process. Assessment and Plan - Disease Oriented Problem List (1) History of CVA (cerebrovascular accident) (2) Urinary tract infection Comment: Urine culture + proteus mirabilis (3) Sepsis Comment: Initial blood cultures positive for coag negative staph, MRSA and pseudomonas aeruginosa Follow-up blood culture on 07/11/2018-negative On vancomycin and cefepime. Infectious disease following. (4) C. difficile diarrhea (5) Sacral wound Comment: Stage IV Wound culture growing MRSA and pseudomonas aeruginosa Wound care nurse following Wound care physician consulted Patient would benefit from diverting colostomy however likely too malnourished to tolerate surgery (6) Dehydration - Symptom Scale (1) Pain 0-10 Scale: Unable to quantify (2) Debility 0-10 Scale: Unable to quantify Pertinent Non-Medical Issues: Psychosocial: Patient was born in [place]. She has 5 brothers and 5 sisters. Her childhood was described as happy. Patient has a history of homelessness and has been arrested for trespassing. She graduated from high school, then went to trade school. 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 Patient was when she was 21 years old but was 3 years later. Patient had 2 sons and 1 daughter. Patient has noncompliance with her medical regimen. She was Brock acted in the past secondary to delusions, paranoia and visual/auditory hallucinations. Spiritual: Holiness latonya Legal: Son, Henri Birmingham, is designated as the healthcare surrogate decision maker. Daughter, Geri, is the alternate healthcare surrogate decision maker Ethical issues impacting care: No known ethical issues impacting care at this time. Important Contacts: Geri Wallace, daughter: [phone]. (This number no longer belongs to Geri ) Henri Birmingham, son: [phone] King Elsy, brother: [phone] Prognosis: Patient is a frail, cachectic [facility] status post CVA in April, with residual hemiparesis and aphasia. She is nonverbal and dependent for all care. She is now admitted with sepsis, C. difficile and a stage IV sacral decubitus wound. Patient's condition is guarded. She is at risk for deterioration if the source of infection cannot be controlled. Code Status: Full Code Plan: * FULL CODE * Decision making: Patient is unable to participate in establishment of medical treatment goals s/p CVA with residual hemiparesis and aphasia. She designated her son, Henri Birmingham, as her health care surrogate decision maker. Daughter, Aleena Wallace, is the alternate health care surrogate. * GOALS AGGRESSIVE * Symptom management: == Debility: Patient has resided in a NH status post CVA in 04/2017 with residual hemiparesis and aphasia. She is dependent for all care. She is able to track with her eyes. she is unable to make her needs known. Extremities are contracted. == Pain: Likely sources of pain are bedbound status, invasive lines, large tunneled sacral wound, sepsis, C. difficile infection, contractures. Patient was receiving tramadol 50 mg 2 times daily prior to admission. Monitor for signs and symptoms of nonverbal pain such as grimacing and moaning. May want to consider restarting tramadol if indicated. * Message left for patient's son (Henri) at [phone] as well as patient's brother (King Jocelyn) at [phone]. Palliative care is requesting to be notified if family arrives * Palliative care will continue to follow this patient throughout her hospitalization to establish stress, assist with symptom management and clarification of medical treatment goals. Attestation Attestation: To help prompt me to consider important information that might be impacting today's encounter and assessment, information from prior notes written by myself or my colleagues may have been "brought forward" into today's note. My signature on this note, however, is an attestation that I personally performed the exam, history, and/or decision-making noted today, and, unless otherwise indicated, the interactions with patient, family, and staff as well as the review of records all occurred today. I also attest that the listed assessment and stated plan reflect my best clinical judgment today based on the combination of historical information, prior notes, and today's exam/ interactions. When time spent is documented, it refers only to time spent today by the signer, or if indicated, combined time spent today by collaborating physician/nurse practitioner.
--- NOTE | 2018-07-16 15:47 | P.DIET ---
Nutritional Evaluation Type of nutrition evaluation: follow-up Nutrition consult regarding: Tube Feeding Subjective Subjective Comments: Pt is non-verbal at baseline. Ht of 167.64cm used for assessment. Objective - Diagnosis Sepsis, Dehydration, Hypotension, C-Diff - Objective % IBW: 87 (IBW = 110#) Body Weight Used for Calculations: Actual (51.3 kg) Energy Needs - Lower Range (kCal/kg): 30 Energy Needs - Upper Range (kCal/kg): 35 Lower Limit kCal/kg (kCals): 1,539 Upper Limit kCal/kg (kCals): 1,796 Lower Limit Protein Factor (Grams per Kg): 1.2 Upper Limit Protein Factor (Grams per Kg): 1.5 Lower Protein Needs (Protein): 62 Upper Protein Needs (Protein): 89 Dietitian Reviewed in Medical Record: Curent medications, Intake & Output, Labs , Medical history, Tube feeding, Wound/DTI Diet Order: NPO Wound Care Note: WOCN dated 07/12 indicates a stage 4 coccyx pressure injury Objective Comments: PMH Includes: HTN, CVA w/residual hemiparesis/aphasia, s/p PEG tube placement, recent c-diff diagnosis Assessment Assessment: Pt remains at high nutrition risk 2' to pressure injury and her dependence on TFing for nutritional needs. Current order is for Glucerna 1.5 @ 50 mls/hr from 2pm -10am. Recommend increase TF rate to 55 mls/hr x 20 hours to provide 1650 kcals, 91 gms protein and 835 mls of free water. Pt may also benefit from Tyshawn 1 pack bid via PEG to aid in healing. Tyshawn is a targeted nutrition therapy that contains arginine and glutamine as well as CaHMB. Recommendations: 1. Increase Glucerna 1.5 to 55 mls/hr from 2pm - 10am 2. Please order Tyshawn 1 pack bid Dietitian to Monitor: Lab values, Intake & Output, Tube feeding tolerance, Weight change, Wound/skin status, Medical course
[2018-07-16] MEDS: Vancomycin Inj 1,000 MG in Sodium Chlor 0.9% Inj 250 ML IV.SIG SCH (17:04)
[2018-07-17] MEDS: Dextrose 5% in Water Inj 1,000 ML IV.CONT SCH ×2 (05:36→22:22)
[2018-07-17 06:59] LABS: Anion Gap 6 meq/L (5-15); Blood Urea Nitrogen 12 mg/dL (7-18); Calcium 7.7 mg/dL (8.5-10.1); Carbon Dioxide 28.3 meq/L (21.0-32.0); Chloride 111 meq/L (98-107); Glomerular Filtration Rate Greater Than 89 mL/min (>89); Glucose,Random 96 mg/dL (74-106); Potassium 3.7 meq/L (3.5-5.1); Sodium 145 meq/L (136-145)
[2018-07-17] MEDS: Insulin NovoLOG Aspart Correctional Sugar Inj SQ SCH ×4 (08:11→22:19)
[2018-07-17] MEDS: Sertraline 50 MG Tablet PO SCH (09:18)
[2018-07-17] MEDS: Lactobacillus Acidophilus/L. Spores Tablet G-TUBE SCH ×3 (09:19→17:05)
--- NOTE | 2018-07-17 12:22 | P.PNIM ---
Subjective Interval history: Nonverbal with no active changes overnight per nursing staff. Physical Exam Vital signs: Vital Signs 07/16/18 16:00 07/16/18 20:00 07/17/18 00:00 Temperature 98.1 F 98.5 F 98.3 F Pulse Rate 83 77 77 Respiratory Rate 18 20 20 Blood Pressure 118/80 126/75 110/68 Pulse Oximetry 100 100 98 07/17/18 08:00 Temperature 98.5 F Pulse Rate 83 Respiratory Rate 17 Blood Pressure 118/69 Pulse Oximetry 99 Intake & Output 07/16/18 07/17/18 07/17/18 18:59 06:59 18:59 Intake Total 1984 / 1984 1100 / 1100 100 / 100 Output Total 1300 / 1300 800 / 800 Balance 685 / 685 300 / 300 100 / 100 Weight 60.2 kg Intake: IV 1450 / 1450 1100 / 1100 100 / 100 D5W Inj 1,000 ML @ 75 mls/hr IV 1000 / 1000 1000 / 1000 .CONT .[id number] [facility] Rx#:[id number] Maxipime Inj 2,000 MG In NS Inj 200 / 200 100 / 100 100 / 100 100 ML @ 200 mls/hr IV.SIG Q8H [facility] Rx#:[id number] Vancomycin Inj 1,000 MG In NS 250 / 250 Inj 250 ML @ 250 mls/hr IV.SIG Q18H [facility] Rx#:[id number] Oral 0 / 0 Tube Feeding 335 / 335 Water Bolus Amount 200 / 200 Output: Urine 700 / 700 Stool 600 / 600 Urine Amount (Catheter) 800 / 800 Indwelling Urethral Catheter 800 / 800 Other: Date of Last Bowel Movement 06/12/18 07/16/18 07/17/18 Narrative: GENERAL: Well-developed fair-nourished. Thin, frail, chronically ill- appearing. In no acute distress. SKIN: Warm and dry. No lesions noted. CARDIOVASCULAR: Regular rate and rhythm. No murmur appreciated. RESPIRATORY: No accessory muscle use. Clear to auscultation. Breath sounds equal bilaterally. GASTROINTESTINAL: Abdomen soft, non-tender, nondistended. Bowel sounds x4. PEG and rectal tubes in place. MUSCULOSKELETAL: No obvious deformities. No clubbing or cyanosis. No edema. NEUROLOGICAL: Awake. Tracks with eyes. Nonverbal. CVA in April, with residual hemiparesis and aphasia - Urinary Catheter Management Indwelling Urethral Catheter Cath placed during this visit: yes, but has since been removed by the nurse Reason for continuing: Severe pressure ulcer/wound Insertion date: 07/12/18 Insertion time: 01:00 Removal date: 07/12/18 Removal time: 12:50 Results - Labs CBC & Chem 7: 07/15/18 05:04 07/17/18 05:05 Laboratory Results - last 24 hr 07/16/18 07/16/18 07/17/18 14:27 20:44 05:05 Sodium 145 Potassium 3.7 Chloride 111 H Carbon Dioxide 28.3 Anion Gap 6 BUN 12 Creatinine 0.29 L Estimated GFR Greater than 89 POC Glucose 105 Random Glucose 96 Calcium 7.7 L Random Vancomycin 19.2 07/17/18 07/17/18 07:49 12:06 Sodium Potassium Chloride Carbon Dioxide Anion Gap BUN Creatinine Estimated GFR POC Glucose 107 111 H Random Glucose Calcium Random Vancomycin Microbiology 07/11/18 18:48 Blood - Peripheral Aerobic Blood Culture - Final No growth in 5 days 07/11/18 18:48 Blood - Peripheral Anaerobic Blood Culture - Final No growth in 5 days 07/11/18 18:53 Blood - Peripheral Aerobic Blood Culture - Final No growth in 5 days 07/11/18 18:53 Blood - Peripheral Anaerobic Blood Culture - Final No growth in 5 days Assessment and Plan - Plan 63 year old female with a history of hemorrhagic CVA and severe chronic neurological deficit, admitted with diarrhea from C. Diff. Sepsis Pseudomonas bacteremia and MRSA bacteremia Proteus catheter related urinary tract infection prehospital + Blood cultures, started on IV vancomycin and cefepime -ID consulted, greatly appreciate assistance -Likely source of sepsis is stage IV coccyx ulcer -Final ID recommendations for antibiotic pending Follow-up with final blood cultures. Hyponatremia Dehydration secondary to diarrhea These appears secondary to C. difficile colitis Continue D5W, sodium levels continue to improve Sodium level this morning normalized, recheck BMP in the a.m. C Diff Colitis Leukocytosis PEG p.o. vancomycin Isolation Follow for improvement Dehydration AKIimproved Follow renal function Avoid nephrotoxins IV Hydration continued Hypotension Treat dehydration Hx of Hemorrhagic CVA Chronic severe neurological deficits Supportive Care Chronic sacral ulcer Stage IV Wound care nurse following Wound care physician consulted Patient would benefit from diverting colostomy however likely too malnourished to tolerate surgery Start Zoloft for possible underlying depression. DVT Prophylaxis SCDs Palliative care continues to try to contact children for meeting to establish goals. Extremely poor prognosis, however in the past children desired aggressive treatment. Discharge Planning: Per infectious disease and clinical progression
--- NOTE | 2018-07-17 12:34 | P.PNPAL ---
Reason for Visit Reason for visit: a. To assist with evaluation and management of symptoms including: pain, debility b. To assist medical decision maker(s) with: better understanding of current medical conditions; weighing benefits/burdens of medical treatment options; making medical treatment decisions. Subjective Subjective/Interval History: Ms. Miranda is a 63 year [facility] resident who presented to [place] ED on 07/06/18 for evaluation of hypotension (BP 72/58) and bandemia on outpatient labs. Patient had a lengthy hospitalization status post CVA in April,. She remained hospitalized until Mar, 2018 when she was discharged to a [facility]. After being evaluated in the ED, the patient was admitted for medical management of sepsis, C. difficile, dehydration and hypotension. On vancomycin and cefepime. Follow up visit for symptom management and clarification of medical treatment goals. Discussed patient with Dr. Combs and bedside RN, Nata. Nursing reports no acute changes overnight. Clinical data: * Hemodynamically stable * Sodium: 145, potassium 3.7, chloride 111, carbon dioxide 28.3, glucose 96, calcium 7.7 * BUN: 12, creatinine 0.29, GFR >89 * Blood cultures were positive for coag negative staph and MRSA as well as pseudomonas aeruginosa. Repeat blood cultures- negative * Wound cultures were positive for MRSA as well as pseudomonas aeruginosa. * Urine culture-growing Proteus mirabilis Patient is awake with her eyes open. Not responding to questions today; affect is flat. Patient's is completely dependent status post CVA with residual hemiparesis, aphasia, dysphasia. She has bilateral lower extremity muscle wasting and contractures. Tolerating artificial nutrition; PEG tube showing no evidence of infection. I&C Technician evaluated the patient. Recommended increase in tube feeding to 55ml/hr 20 hours to provide 1650 kcals, 91 g protein and 835 mL's of free water; additional recommendations for Tyshawn 1 pack BID via PEG to aid in healing. Message left for patient's son (Henri). Received a return phone call from Henri this afternoon. He states he is usually available after 1530 on week days. Reports significant changes since patient was discharged to [facility] in Mar, 2018. Reviewed medical conditions and overall prognosis. Patient' s son appears to have basic understanding of the patient's medical condition; he continues to express ongoing aggressive goals. Advance Directives Advance Directives Date on File: 07/12/18 Health Care Surrogate Name and Number: Son, Henri Birmingham, designated HCS. Daughter, Geri, is alternate HCS Documented care wishes:: No known documented care wishes have been completed Objective Vital Signs: Vital Signs 07/16/18 16:00 07/16/18 20:00 07/17/18 00:00 Temperature 98.1 F 98.5 F 98.3 F Pulse Rate 83 77 77 Respiratory Rate 18 20 20 Blood Pressure 118/80 126/75 110/68 Pulse Oximetry 100 100 98 07/17/18 08:00 Temperature 98.5 F Pulse Rate 83 Respiratory Rate 17 Blood Pressure 118/69 Pulse Oximetry 99 Intake & Output 07/16/18 07/17/18 07/17/18 18:59 06:59 18:59 Intake Total 1984 / 1984 1100 / 1100 100 / 100 Output Total 1300 / 1300 800 / 800 Balance 685 / 685 300 / 300 100 / 100 Weight 60.2 kg Intake: IV 1450 / 1450 1100 / 1100 100 / 100 D5W Inj 1,000 ML @ 75 mls/hr IV 1000 / 1000 1000 / 1000 .CONT .[id number] [facility] Rx#:[id number] Maxipime Inj 2,000 MG In NS Inj 200 / 200 100 / 100 100 / 100 100 ML @ 200 mls/hr IV.SIG Q8H [facility] Rx#:[id number] Vancomycin Inj 1,000 MG In NS 250 / 250 Inj 250 ML @ 250 mls/hr IV.SIG Q18H [facility] Rx#:[id number] Oral 0 / 0 Tube Feeding 335 / 335 Water Bolus Amount 200 / 200 Output: Urine 700 / 700 Stool 600 / 600 Urine Amount (Catheter) 800 / 800 Indwelling Urethral Catheter 800 / 800 Other: Date of Last Bowel Movement 06/12/18 07/16/18 07/17/18 Physical Exam: CONSTITUTIONAL/GENERAL: This is a frail, debilitated female in no acute distress TUBES/LINES/DRAINS: Nasal cannula, PEG, PIV SKIN: No jaundice, rashes, or lesions. PEG tube site without evidence of infection. Skin temperature appropriate. Not diaphoretic. HEAD: Atraumatic. Normocephalic. EYES: Pupils equal and round and reactive. Extraocular motions intact. No scleral icterus. No injection or drainage. Fundi not examined. ENT: Hearing grossly normal. Nose without bleeding or purulent drainage. NECK: Trachea midline. Supple, nontender. No palpable thyroid enlargement or nodularity. CARDIOVASCULAR: Regular rate and rhythm without murmurs, gallops, or rubs. No JVD. Peripheral pulses symmetric. RESPIRATORY/CHEST: Symmetric, unlabored respirations. Clear to auscultation. Breath sounds diminished bilaterally. No wheezes, rales, or rhonchi. GASTROINTESTINAL: Abdomen soft, non-tender, nondistended. Tolerating artificial nutrition. No guarding. Bowel sounds present. GENITOURINARY: Without palpable bladder distension. MUSCULOSKELETAL: Extremities without clubbing, cyanosis, or edema. LYMPHATICS: No palpable cervical or supraclavicular adenopathy. NEUROLOGICAL: Opens her eyes spontaneously, tracks with her eyes. Does not respond to questions. Flat affect. PSYCHIATRIC: No obvious anxiety/depression. No apparent hallucinations or other psychotic thought process. Diagnostic Tests Laboratory: Laboratory Results - last 72 hr 07/11/18 07/14/18 07/14/18 18:53 15:25 15:59 WBC RBC Hgb Hct MCV MCH MCHC RDW Plt Count MPV Sodium Potassium Chloride Carbon Dioxide Anion Gap BUN Creatinine Estimated GFR POC Glucose 106 Random Glucose Calcium Vancomycin Trough 17.6 H Random Vancomycin Absolute Lymphocytes 1711 % CD3 Cells 66 Absolute CD3 Count 1121 % CD3-/CD16+/CD56+ 17 Abs CD3-/CD16+/CD56+ 308 % CD4 Cells 38 Absolute CD4 Count 635 T-Help/Suppress Ratio 1.50 % CD8 Cells 26 Absolute CD8 Count 433 % CD19 Cells 16 Absolute CD19 Count 283 07/14/18 07/15/18 07/15/18 20:05 05:04 05:04 WBC 5.3 RBC 3.77 L Hgb 9.7 L Hct 30.6 L MCV 81.0 MCH 25.7 L MCHC 31.8 L RDW 18.0 H Plt Count 205 MPV 9.1 Sodium 147 H Potassium 4.0 Chloride 114 H Carbon Dioxide 25.7 Anion Gap 7 BUN 14 Creatinine 0.32 L Estimated GFR Greater than 89 POC Glucose 117 H Random Glucose 85 Calcium 7.7 L Vancomycin Trough Random Vancomycin Absolute Lymphocytes % CD3 Cells Absolute CD3 Count % CD3-/CD16+/CD56+ Abs CD3-/CD16+/CD56+ % CD4 Cells Absolute CD4 Count T-Help/Suppress Ratio % CD8 Cells Absolute CD8 Count % CD19 Cells Absolute CD19 Count 07/15/18 07/15/18 07/15/18 07:25 11:18 13:47 WBC RBC Hgb Hct MCV MCH MCHC RDW Plt Count MPV Sodium Potassium Chloride Carbon Dioxide Anion Gap BUN Creatinine Estimated GFR POC Glucose 107 108 Random Glucose Calcium Vancomycin Trough 29.8 H Random Vancomycin Absolute Lymphocytes % CD3 Cells Absolute CD3 Count % CD3-/CD16+/CD56+ Abs CD3-/CD16+/CD56+ % CD4 Cells Absolute CD4 Count T-Help/Suppress Ratio % CD8 Cells Absolute CD8 Count % CD19 Cells Absolute CD19 Count 07/15/18 07/15/18 07/16/18 15:25 19:37 06:25 WBC RBC Hgb Hct MCV MCH MCHC RDW Plt Count MPV Sodium 144 Potassium 4.0 Chloride 111 H Carbon Dioxide 27.7 Anion Gap 5 BUN 14 Creatinine 0.35 L Estimated GFR Greater than 89 POC Glucose 107 101 Random Glucose 99 Calcium 7.6 L Vancomycin Trough Random Vancomycin 25.0 Absolute Lymphocytes % CD3 Cells Absolute CD3 Count % CD3-/CD16+/CD56+ Abs CD3-/CD16+/CD56+ % CD4 Cells Absolute CD4 Count T-Help/Suppress Ratio % CD8 Cells Absolute CD8 Count % CD19 Cells Absolute CD19 Count 07/16/18 07/16/18 07/16/18 07:56 12:09 14:27 WBC RBC Hgb Hct MCV MCH MCHC RDW Plt Count MPV Sodium Potassium Chloride Carbon Dioxide Anion Gap BUN Creatinine Estimated GFR POC Glucose 105 111 H Random Glucose Calcium Vancomycin Trough Random Vancomycin 19.2 Absolute Lymphocytes % CD3 Cells Absolute CD3 Count % CD3-/CD16+/CD56+ Abs CD3-/CD16+/CD56+ % CD4 Cells Absolute CD4 Count T-Help/Suppress Ratio % CD8 Cells Absolute CD8 Count % CD19 Cells Absolute CD19 Count 07/16/18 07/17/18 07/17/18 20:44 05:05 07:49 WBC RBC Hgb Hct MCV MCH MCHC RDW Plt Count MPV Sodium 145 Potassium 3.7 Chloride 111 H Carbon Dioxide 28.3 Anion Gap 6 BUN 12 Creatinine 0.29 L Estimated GFR Greater than 89 POC Glucose 105 107 Random Glucose 96 Calcium 7.7 L Vancomycin Trough Random Vancomycin Absolute Lymphocytes % CD3 Cells Absolute CD3 Count % CD3-/CD16+/CD56+ Abs CD3-/CD16+/CD56+ % CD4 Cells Absolute CD4 Count T-Help/Suppress Ratio % CD8 Cells Absolute CD8 Count % CD19 Cells Absolute CD19 Count 07/17/18 12:06 WBC RBC Hgb Hct MCV MCH MCHC RDW Plt Count MPV Sodium Potassium Chloride Carbon Dioxide Anion Gap BUN Creatinine Estimated GFR POC Glucose 111 H Random Glucose Calcium Vancomycin Trough Random Vancomycin Absolute Lymphocytes % CD3 Cells Absolute CD3 Count % CD3-/CD16+/CD56+ Abs CD3-/CD16+/CD56+ % CD4 Cells Absolute CD4 Count T-Help/Suppress Ratio % CD8 Cells Absolute CD8 Count % CD19 Cells Absolute CD19 Count Result Diagrams: 07/15/18 05:04 07/17/18 05:05 Microbiology: Microbiology 07/11/18 18:48 Aerobic Blood Culture - Final Blood - Peripheral No growth in 5 days Anaerobic Blood Culture - Final No growth in 5 days 07/11/18 18:53 Aerobic Blood Culture - Final Blood - Peripheral No growth in 5 days Anaerobic Blood Culture - Final No growth in 5 days Imaging: Chest X-Ray 07/06/18 20:33 CONCLUSION: No acute cardiopulmonary process. Assessment and Plan - Disease Oriented Problem List (1) History of CVA (cerebrovascular accident) Comment: Status post hemorrhagic CVA in 04/2017 Chronic neurological deficits (2) Urinary tract infection Comment: Urine culture + proteus mirabilis (3) Sepsis Comment: Initial blood cultures positive for coag negative staph, MRSA and pseudomonas aeruginosa Follow-up blood culture on 07/11/2018-negative On vancomycin and cefepime. Infectious disease following. (4) C. difficile diarrhea Comment: On vancomycin via PEG Contact isolation (5) Sacral wound Comment: Stage IV Wound culture growing MRSA and pseudomonas aeruginosa Wound care nurse following Wound care physician consulted Patient would benefit from diverting colostomy however likely too malnourished to tolerate surgery (6) Dehydration Comment: Appears to be secondary to poor intake and C. difficile colitis Following labs Pertinent Non-Medical Issues: Psychosocial: Patient was born in [place]. She has 5 brothers and 5 sisters. Her childhood was described as happy. Patient has a history of homelessness and has been arrested for trespassing. She graduated from high school, then went to trade school. 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 Patient was when she was 21 years old but was 3 years later. Patient had 2 sons and 1 daughter. Patient has noncompliance with her medical regimen. She was Brock acted in the past secondary to delusions, paranoia and visual/auditory hallucinations. Spiritual: Uatsdin latonya Legal: Son, Henri Birmingham, is designated as the healthcare surrogate decision maker. Daughter, Geri, is the alternate healthcare surrogate decision maker Ethical issues impacting care: No known ethical issues impacting care at this time. Important Contacts: Geri Wallace, daughter: [phone]. (This number no longer belongs to Geri ) Henri Birmingham, son: [phone] King Elsy, brother: [phone] Prognosis: Patient is a frail, cachectic [facility] resident status post CVA in April, with residual hemiparesis and aphasia. She is nonverbal and dependent for all care. She is now admitted with sepsis, C. difficile and a stage IV sacral decubitus wound. Patient's condition is guarded. She is at risk for deterioration if the source of infection cannot be controlled. Code Status: Full Code Plan: * FULL CODE * Decision making: Patient is unable to participate in establishment of medical treatment goals s/p CVA with residual hemiparesis and aphasia. She designated her son, Henri Birmingham, as her health care surrogate decision maker. Daughter, Aleena Wallace, is the alternate health care surrogate. * Patient's son verbalizes aggressive goals. * Discussed patient with Dr. Combs and bedside RN, Nata. * Symptom management: == Debility: Patient has resided in a NH status post CVA in 04/2017 with residual hemiparesis and aphasia. She is dependent for all care. She is able to track with her eyes. Does not respond to questions ; unable to make her needs known. Flat affect. Extremities are contracted. Dietitian recommending Tyshawn 1 pack BID via PEG to aid in healing. == Pain: Likely sources of pain are bedbound status, invasive lines, large tunneled sacral wound, sepsis, C. difficile infection, contractures. Patient was receiving tramadol 50 mg 2 times daily prior to admission. Monitor for signs and symptoms of nonverbal pain such as grimacing and moaning. May want to consider restarting tramadol if indicated. * Message left for patient's son (Henri). Received a return phone call from Henri this afternoon. He states he is usually available after 1530 on days. Reports significant changes since patient was discharged to [facility] in Mar, 2018. Reviewed medical conditions and overall prognosis. Patient's son appears to have basic understanding of the patient's medical condition; he continues to express ongoing aggressive goals. * Palliative care will continue to follow this patient throughout her hospitalization to establish stress, assist with symptom management and clarification of medical treatment goals.
[2018-07-17] MEDS: Vancomycin Inj 1,000 MG in Sodium Chlor 0.9% Inj 250 ML IV.SIG SCH (12:50)
[2018-07-18] MEDS ORDERED: Pharmacy Ordered Lab Info OTHER ONE (05:45)
[2018-07-18] MEDS: Vancomycin Inj 1,000 MG in Sodium Chlor 0.9% Inj 250 ML IV.SIG SCH (06:29)
[2018-07-18 06:43] LABS: Glomerular Filtration Rate Greater Than 89 mL/min (>89); Vancomycin,Trough 13.4 mcg/mL (5.0-10.0)
[2018-07-18] MEDS: Insulin NovoLOG Aspart Correctional Sugar Inj SQ SCH ×4 (08:02→22:35)
[2018-07-18] MEDS: Dextrose 5% in Water Inj 1,000 ML IV.CONT SCH (10:26)
[2018-07-18] MEDS: Sertraline 50 MG Tablet PO SCH (10:26)
[2018-07-18] MEDS: Lactobacillus Acidophilus/L. Spores Tablet G-TUBE SCH ×3 (10:26→18:39)
--- NOTE | 2018-07-18 11:44 | P.PNIM ---
Subjective Interval history: No acute changes overnight per nursing staff. Was able to get tube feeds to go. Continues to have loose stools Physical Exam Vital signs: Vital Signs 07/17/18 12:00 07/17/18 16:00 07/17/18 20:00 Temperature 98.9 F 97.5 F L 98.7 F Pulse Rate 81 80 78 Respiratory Rate 17 17 22 Blood Pressure 121/81 138/83 149/84 H Pulse Oximetry 99 99 99 07/18/18 00:00 07/18/18 08:00 Temperature 97.8 F 98.1 F Pulse Rate 87 82 Respiratory Rate 20 18 Blood Pressure 145/72 H 134/79 Pulse Oximetry 99 100 Intake & Output 07/17/18 07/18/18 07/18/18 18:59 06:59 18:59 Intake Total 1450 / 1450 100 / 100 1250 / 1250 Output Total 1500 / 1500 1450 / 1450 Balance -50 / -50 -1350 / -1350 1250 / 1250 Weight 58.2 kg Intake: IV 1450 / 1450 100 / 100 1250 / 1250 D5W Inj 1,000 ML @ 75 mls/hr IV 1000 / 1000 1000 / 1000 .CONT .[id number] [facility] Rx#:[id number] Maxipime Inj 2,000 MG In NS Inj 200 / 200 100 / 100 100 ML @ 200 mls/hr IV.SIG Q8H [facility] Rx#:[id number] Vancomycin Inj 1,000 MG In NS 250 / 250 250 / 250 Inj 250 ML @ 250 mls/hr IV.SIG Q18H [facility] Rx#:[id number] Oral 0 / 0 Output: Urine 700 / 700 1150 / 1150 Stool 300 / 300 Urine/Stool Mix 800 / 800 Other: Date of Last Bowel Movement 07/17/18 07/17/18 07/18/18 Narrative: GENERAL: Well-developed fair-nourished. Thin, frail, chronically ill- appearing. In no acute distress. SKIN: Warm and dry. No lesions noted. CARDIOVASCULAR: Regular rate and rhythm. RESPIRATORY: No accessory muscle use. Clear to auscultation. Breath sounds equal bilaterally. GASTROINTESTINAL: Abdomen soft, non-tender, nondistended. Bowel sounds x4. PEG and rectal tubes in place. MUSCULOSKELETAL: No obvious deformities. No clubbing or cyanosis. No edema. NEUROLOGICAL: Awake. Tracks with eyes. Nonverbal. residual hemiparesis and aphasia - Urinary Catheter Management Indwelling Urethral Catheter Cath placed during this visit: yes, but has since been removed by the nurse Reason for continuing: Severe pressure ulcer/wound Insertion date: 07/12/18 Insertion time: 01:00 Removal date: 07/12/18 Removal time: 12:50 Results - Labs CBC & Chem 7: 07/15/18 05:04 07/18/18 06:08 Laboratory Results - last 24 hr 07/17/18 07/17/18 07/17/18 12:06 16:43 22:15 Creatinine Estimated GFR POC Glucose 111 H 100 112 H Vancomycin Trough 07/18/18 07/18/18 07/18/18 06:08 07:59 08:16 Creatinine 0.30 L Estimated GFR Greater than 89 POC Glucose 111 H 114 H Vancomycin Trough 13.4 H Assessment and Plan - Plan 63 year old female with a history of hemorrhagic CVA and severe chronic neurological deficit, admitted with diarrhea from C. Diff. Sepsis Pseudomonas bacteremia and MRSA bacteremia Proteus catheter related urinary tract infection prehospital + Blood cultures, started on IV vancomycin and cefepime -ID consulted, greatly appreciate assistance -Likely source of sepsis is stage IV coccyx ulcer -Final ID recommendations for antibiotic pending Follow-up with final blood cultures. Discussed with Dr. Cruz who feels if family continues to want aggressive treatment will need a evaluation consult for a colostomy although patient extremely frail and likely would not not be a good candidate for surgical intervention. Severe malnutritioncontinue with tube feeds Hyponatremia Dehydration secondary to diarrhea These appears secondary to C. difficile colitis sodium levels continue to improve, will discontinue fluids. C Diff Colitis Leukocytosis PEG p.o. vancomycin Isolation Follow for improvement Dehydration AKIimproved Follow renal function Avoid nephrotoxins IV Hydration continued Hypotension Treat dehydration Hx of Hemorrhagic CVA Chronic severe neurological deficits Supportive Care Chronic sacral ulcer Stage IV Wound care nurse following Wound care physician consulted Patient would benefit from diverting colostomy however likely too malnourished to tolerate surgery Start Zoloft for possible underlying depression. DVT Prophylaxis SCDs Palliative care continues to try to contact children for meeting to establish goals. Extremely poor prognosis, however in the past children desired aggressive treatment. Discharge Planning: Per infectious disease and clinical progression
--- NOTE | 2018-07-18 14:24 | P.CONGS ---
[facility] Gen Surgery Consult Note Consult date: 07/18/18 Reason for consult: other (Diverting colostomy) Requesting physician: Noemi Combs Narrative: CONSULTATION NOTE FOR SURGICAL ATTENDING, DR. 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 She is not able to give any history and all the information is collected from review of the medical record and discussions with Dr. Combs and LINSEY Olvera. The patient [facility] for hypotension. She was found to have c-diff as well as a stage 4 decubitus ulcer. She has been followed by Palliative Care to help establish short term and fci goals with the family. Again, the patient is not able to communicate. A General Surgery consultation has been requested. Review of Systems unobtainable due to mental status (s/p CVA) [facility] - History History Provided By: Medical Record - Medical History Medical History: Medical History (Last Reviewed 07/18/18 @ 19:16 by Adi Monreal MD) Atherosclerotic cardiovascular disease History of DVT (deep vein thrombosis) History of hallucinations History of hemorrhagic stroke with residual hemiparesis History of malignant hypertension - Surgical History Surgical History: Surgical History (Last Reviewed 07/18/18 @ 19:16 by Adi Monreal MD) S/P percutaneous endoscopic gastrostomy (PEG) tube placement - Tobacco History Smoking Status: Cognitive impairment - Alcohol History How Often Do You Have a Drink Containing Alcohol: Unable to Obtain - Substance Use History Substance History: Unable to Obtain - Travel History Recent Travel in the [place] Within the Last 8 Weeks: No Recent Travel Out of the Country Within the Last 8 Weeks: No - Immunization History Tetanus Immunization: <5 Years Hx Influenza Vaccine This Season: Yes Medications and Allergies Allergies Allergy/AdvReac Type Severity Reaction Status Date / Time No Known Allergies Allergy Verified 07/06/18 20:47 Home Medications Medication Instructions Recorded Confirmed Type Lactobacillus acidophilus 100 mmu cells TID 07/07/18 07/07/18 History [Probiotic Acidophilus] alum-mag hydroxide-simeth [Maalox 30 ml PO Q4H PRN 07/07/18 07/07/18 History Maximum Strength] woswsogh-hinceukrg-ehvedqw bmb 1 dose BID 07/07/18 07/07/18 History [Tyshawn] ascorbic acid (vitamin C) [Vitamin 500 mg PO BID 07/07/18 07/07/18 History C] cholestyramine (with sugar) 1 pkg FEEDING TUBE HS 07/07/18 07/07/18 History [Questran] escitalopram oxalate [Lexapro] 10 mg FEEDING TUBE DAILY 07/07/18 07/07/18 History hydralazine 50 mg FEEDING TUBE TID 07/07/18 07/07/18 History hydrochlorothiazide 25 mg FEEDING TUBE DAILY 07/07/18 07/07/18 History lansoprazole 30 mg FEEDING TUBE DAILY 07/07/18 07/07/18 History loperamide 1 tab FEEDING TUBE PRN PRN MDD not 07/07/18 07/07/18 History to exceed 8 caps/24 hours loperamide 4 mg FEEDING TUBE ONCE PRN MDD 8 07/07/18 07/07/18 History caps/24hours magnesium hydroxide [Milk of 30 ml FEEDING TUBE Q4HR PRN 07/07/18 07/07/18 History Magnesia] metoprolol tartrate 25 mg FEEDING TUBE BID 07/07/18 07/07/18 History metronidazole [Flagyl] 500 mg FEEDING TUBE TID 07/07/18 07/07/18 History multivitamin with minerals 20 ml FEEDING TUBE DAILY 07/07/18 07/07/18 History nifedipine 20 mg PO TID 07/07/18 07/07/18 History tramadol 50 mg FEEDING TUBE BID 07/07/18 07/07/18 History tramadol 50 mg FEEDING TUBE BID PRN 07/07/18 07/07/18 History Active Medications: Active Medications Dextrose (D50w Vial) 50 ml IV.PUSH UNSCH PRN PRN Reason: PER HYPOGLYCEMIA PROTOCOL Glucagon (Glucagon Inj) 1 mg OTHER UNSCH PRN PRN Reason: for Hypoglycemia Protocol Sodium Chloride (Ns Inj) 1,000 mls @ 0 mls/hr IV.SIG BOLUS [facility] Last Infusion: 07/07/18 08:22 Dose: Infused Dextrose (D5w Inj) 1,000 mls @ 75 mls/hr IV.CONT .[id number] [facility] Last Admin: 07/18/18 10:26 Dose: 75 mls/hr Cefepime HCl 2,000 mg/ Sodium (Chloride) 100 mls @ 200 mls/hr IV.SIG Q8H [facility] Last Infusion: 07/18/18 12:28 Dose: Infused Vancomycin HCl 750 mg/ Sodium (Chloride) 257.5 mls @ 250 mls/hr IV.SIG Q12H [facility] Insulin Aspart (Novolog Insulin Correctional Sugar Inj) 0 unit SQ ACHS [facility]; Protocol Last Admin: 07/18/18 13:33 Dose: Not Given Lactobacillus Acidophilus (Lactinex) 1 tab G-TUBE TID [facility] Last Admin: 07/18/18 13:33 Dose: 1 tab Miscellaneous (Pill Splitter) 1 each OTHER UNSCH PRN PRN Reason: SEE LABEL COMMENTS Miscellaneous Information ([facility] Ordered Lab Info) 1 each OTHER ONCE [facility] Ondansetron HCl (Zofran Inj) 4 mg IV.PUSH Q6H PRN PRN Reason: NAUSEA OR VOMITING Pharmacy Profile Note (Vancomycin Consult Pharmacy) 1 each OTHER UNSCH PRN PRN Reason: Pharmacy to dose Sertraline HCl (Zoloft) 25 mg PO DAILY [facility] Last Admin: 07/18/18 10:26 Dose: 25 mg Vancomycin HCl (Vancomycin Po) 500 mg G-TUBE QID [facility] Last Admin: 07/18/18 13:33 Dose: 500 mg Exam Vital signs: Vital Signs 07/17/18 16:00 07/17/18 20:00 07/18/18 00:00 Temperature 97.5 F L 98.7 F 97.8 F Pulse Rate 80 78 87 Respiratory Rate 17 22 20 Blood Pressure 138/83 149/84 H 145/72 H Pulse Oximetry 99 99 99 07/18/18 08:00 07/18/18 12:00 Temperature 98.1 F 97.9 F Pulse Rate 82 84 Respiratory Rate 18 17 Blood Pressure 134/79 125/82 Pulse Oximetry 100 99 Intake & Output 07/17/18 07/18/18 07/18/18 18:59 06:59 18:59 Intake Total 1450 / 1450 100 / 100 1350 / 1350 Output Total 1500 / 1500 1450 / 1450 1650 / 1650 Balance -50 / -50 -1350 / -1350 -300 / -300 Weight 58.2 kg Intake: IV 1450 / 1450 100 / 100 1350 / 1350 D5W Inj 1,000 ML @ 75 mls/hr IV 1000 / 1000 1000 / 1000 .CONT .[id number] [facility] Rx#:[id number] Maxipime Inj 2,000 MG In NS Inj 200 / 200 100 / 100 100 / 100 100 ML @ 200 mls/hr IV.SIG Q8H [facility] Rx#:[id number] Vancomycin Inj 1,000 MG In NS 250 / 250 250 / 250 Inj 250 ML @ 250 mls/hr IV.SIG Q18H [facility] Rx#:[id number] Oral 0 / 0 Output: Urine 700 / 700 1150 / 1150 Stool 300 / 300 1000 / 1000 Urine/Stool Mix 800 / 800 Urine Amount (Catheter) 650 / 650 Indwelling Urethral Catheter 650 / 650 Other: Date of Last Bowel Movement 07/17/18 07/17/18 07/18/18 Narrative: GENERAL: Awake, aphasic, eyes open 63 year old female resting in bed in no acute distress. SKIN: Per reports---large stage 4 sacral decubitus wound. HEAD: Atraumatic. Normocephalic. EYES: Pupils equal and round. No scleral icterus. No injection or drainage. ENT: No nasal bleeding or discharge. Mucous membranes pink and moist. NECK: Trachea midline. CARDIOVASCULAR: Regular rate and rhythm. RESPIRATORY: No accessory muscle use. Clear to auscultation. Breath sounds equal bilaterally. GASTROINTESTINAL: Abdomen soft, non-tender, nondistended. PEG in place with TF. No visible scars or hernias. MUSCULOSKELETAL: Severe contractures of BLE. NEUROLOGICAL: Awake. Unable to examine further. PSYCHIATRIC: Unable to examine. Results - Labs 07/15/18 05:04 07/18/18 06:08 Laboratory Results WBC 5.3 th/mm3 (4.0-11.0) 07/15/18 05:04 RBC 3.77 mil/mm3 (4.00-5.30) L 07/15/18 05:04 Hgb 9.7 gm/dL (11.6-15.3) L 07/15/18 05:04 Hct 30.6 % (35.0-46.0) L 07/15/18 05:04 MCV 81.0 fL (80.0-100.0) 07/15/18 05:04 MCH 25.7 pg (27.0-34.0) L 07/15/18 05:04 MCHC 31.8 % (32.0-36.0) L 07/15/18 05:04 RDW 18.0 % (11.6-17.2) H 07/15/18 05:04 Plt Count 205 th/mm3 (150-450) 07/15/18 05:04 MPV 9.1 fL (7.0-11.0) 07/15/18 05:04 Prelim Diff (Auto) Slide review pending 07/08/18 06:35 Neut % (Auto) 71.7 % (16.0-70.0) H 07/12/18 06:10 Lymph % (Auto) 17.4 % (9.0-44.0) 07/12/18 06:10 [place] % (Auto) 7.4 % (0.0-8.0) 07/12/18 06:10 Eos % (Auto) 3.1 % (0.0-4.0) 07/12/18 06:10 Baso % (Auto) 0.4 % (0.0-2.0) 07/12/18 06:10 Neut # (Auto) 5.9 th/mm3 (1.8-7.7) 07/12/18 06:10 Lymph # (Auto) 1.4 th/mm3 (1.0-4.8) 07/12/18 06:10 [place]ift # (Auto) 0.6 th/mm3 (0.0-0.9) 07/12/18 06:10 Eos # (Auto) 0.3 th/mm3 (0.0-0.4) 07/12/18 06:10 Baso # (Auto) 0.0 th/mm3 (0.0-0.2) 07/12/18 06:10 WBC Differential . 07/12/18 06:10 Seg Neuts % (Manual) 64 % (16-70) 07/08/18 06:35 Band Neuts % (Manual) 21 % (0-6) H 07/08/18 06:35 Lymphocytes % (Manual) 9 % (9-44) 07/08/18 06:35 Monocytes % (Manual) 5 % (0-8) 07/08/18 06:35 Basophils % (Manual) 1 % (0-2) 07/06/18 21:00 Myelocytes % (Man) 1 % (0-0) H 07/08/18 06:35 Abs Neuts (Manual) 7.7 th/mm3 (1.8-7.7) 07/08/18 06:35 Differential Comment Auto diff final 07/12/18 06:10 Toxic Granulation 1+ (None) H 07/08/18 06:35 Platelet Estimate Normal (Normal) 07/08/18 06:35 Platelet Morphology Normal (Normal) 07/08/18 06:35 Target Cells 1+ (None) H 07/07/18 03:05 Ovalocytes 1+ (None) H 07/07/18 03:05 PT 11.1 sec (9.8-11.6) 07/06/18 21:00 INR 1.1 Ratio 07/06/18 21:00 APTT 23.9 sec (24.3-30.1) L 07/06/18 21:00 Sodium 145 meq/L (136-145) 07/17/18 05:05 Potassium 3.7 meq/L (3.5-5.1) 07/17/18 05:05 Chloride 111 meq/L (98-107) H 07/17/18 05:05 Carbon Dioxide 28.3 meq/L (21.0-32.0) 07/17/18 05:05 Anion Gap 6 meq/L (5-15) 07/17/18 05:05 BUN 12 mg/dL (7-18) 07/17/18 05:05 Creatinine 0.30 mg/dL (0.50-1.00) L 07/18/18 06:08 Estimated GFR Greater than 89 mL/min (>89) 07/18/18 06:08 POC Glucose 93 mg/dl (68-110) 07/18/18 13:29 Random Glucose 96 mg/dL (74-106) 07/17/18 05:05 Lactic Acid 1.7 mmol/L (0.4-2.0) 07/07/18 03:05 Calcium 7.7 mg/dL (8.5-10.1) L 07/17/18 05:05 Prot Corrected Calcium 7.8 mg/dL (8.5-10.1) L 07/07/18 03:05 Magnesium 4.4 mg/dL (1.5-2.5) H 07/06/18 21:00 Total Bilirubin 0.2 mg/dL (0.2-1.0) 07/12/18 06:10 AST 37 U/L (15-37) 07/12/18 06:10 ALT 36 U/L (10-53) 07/12/18 06:10 Alkaline Phosphatase 78 U/L (45-117) 07/12/18 06:10 C-Reactive Protein 2.60 mg/dL (0.00-0.30) H 07/11/18 18:53 Total Protein 5.2 g/dL (6.4-8.2) L 07/12/18 06:10 Albumin 1.6 g/dL (3.4-5.0) L 07/12/18 06:10 Urine Color Yellow (Yellw/Straw) 07/10/18 15:40 Urine Clarity Turbid (Clear) H 07/10/18 15:40 Urine pH 8.0 (5.0-8.5) 07/10/18 15:40 Ur Specific [place] 1.022 (1.002-1.035) 07/10/18 15:40 Urine Protein 500 or greater mg/dL (Neg-Trace) 07/10/18 15:40 Urine Glucose (UA) Negative mg/dL (Negative) 07/10/18 15:40 Urine Ketones Negative mg/dL (Negative) 07/10/18 15:40 Urine Occult Blood Negative (Negative) 07/10/18 15:40 Urine Nitrate Positive (Negative) H 07/10/18 15:40 Urine Bilirubin Negative (Negative) 07/10/18 15:40 Urine Urobilinogen Less than 2 mg/dL (Less than 2) 07/10/18 15:40 Ur Leukocyte Esterase Small (Negative) H 07/10/18 15:40 Urine RBC /hpf (0-3) 07/10/18 15:40 Urine WBC /hpf (0-5) 07/10/18 15:40 Triple Phos Crystals Many /hpf (None) H 07/10/18 15:40 Urine Bacteria Many /hpf (None) H 07/10/18 15:40 Hyaline Casts 61 /lpf (0-3) 07/10/18 15:40 Urine Mucus Many /lpf (Occasional) H 07/10/18 15:40 Micro UA Comment Cath-culture ind 07/10/18 15:40 Ur Microscopic Review Not Reportable 07/10/18 15:40 Urine Culture Comments Cath-cult indicated 07/10/18 15:40 St C. diff Tox Epid 027 Positive (Negative) H 07/06/18 23:30 Vancomycin Trough 13.4 mcg/mL (5.0-10.0) H 07/18/18 06:08 Random Vancomycin 19.2 Comment 07/16/18 14:27 Absolute Lymphocytes 1711 cells/uL (850-3900) 07/11/18 18:53 % CD3 Cells 66 % (57-85) 07/11/18 18:53 Absolute CD3 Count 1121 /uL (840-3060) 07/11/18 18:53 % CD3-/CD16+/CD56+ 17 % (4-25) 07/11/18 18:53 Abs CD3-/CD16+/CD56+ 308 cells/uL (70-760) 07/11/18 18:53 % CD4 Cells 38 % (30-61) 07/11/18 18:53 Absolute CD4 Count 635 cells/uL (490-1740) 07/11/18 18:53 T-Help/Suppress Ratio 1.50 (0.86-5.00) 07/11/18 18:53 % CD8 Cells 26 % (12-42) 07/11/18 18:53 Absolute CD8 Count 433 cells/uL (180-1170) 07/11/18 18:53 % CD19 Cells 16 % (6-29) 07/11/18 18:53 Absolute CD19 Count 283 cells/uL (110-660) 07/11/18 18:53 C. difficile Tox (PCR) Positive (Negative) H 07/06/18 23:30 Hepatitis A IgM Ab Nonreactive (Nonreactive) 07/11/18 18:53 Hep Bs Antigen Nonreactive (Nonreactive) 07/11/18 18:53 Hep B Core IgM Ab Reactive (Nonreactive) H 07/11/18 18:53 Hep C IgG Ab Nonreactive (Nonreactive) 07/11/18 18:53 Impressions Chest X-Ray 07/06/18 20:33 CONCLUSION: No acute cardiopulmonary process. - Imaging Additional studies: ITS Impressions Chest X-Ray 07/06/18 20:33 CONCLUSION: No acute cardiopulmonary process. Assessment and Plan - Assessment (1) Decubitus ulcer Code(s): L89.90 - Pressure ulcer of unspecified site, unspecified stage Status : Acute Plan: 63 year old female s/p CVA with stage 4 decubitus ulcer in need to diverting loop colostomy -Will plan for Monday for diverting loop colostomy -Continue TF until at MN -Hold anticoagulation after MN on -Plastics consult for management of decubitus ulcer -Will need to discuss with family for consents -Discussed with Dr. Combs and LINSEY Olvera -Thank you for this consult; We will continue to follow - Plan Discussed Condition With: Dr. Rah Combs RN - Attending Attestation CONSULTATION NOTE FOR SURGICAL ATTENDING, DR. ADI MONREAL Discussed with Dr. Combs We will attempt to notify family Plan diverting loop ostomy when consent obtained tentatively set for Monday I agree with above assessment and plan. The exam, history, and the medical decision-making described in the above note were completed with the assistance of the mid-level provider. I reviewed and agree with the findings presented. I attest that I had a [id number] encounter with the patient on the same day, and personally performed and documented my assessment and findings in the medical record. The following services were provided during this hospital visit: Chart data review, vital sign assessments/reviewing monitor data Review of consultations notes if present. Medication orders/review and/or management Ordering and/or reviewing lab tests Ordering and/or interpreting/reviewing x-rays and/or diagnostic studies Care of the patient and discussion of the patient with the care team Documentation time To help prompt me to consider important information that might be impacting today's encounter and assessment, Information from prior notes written by myself or my colleagues may have been "brought forward/copy and pasted" into today's note.
--- NOTE | 2018-07-18 16:54 | P.PNPAL ---
Reason for Visit Reason for visit: a. To assist with evaluation and management of symptoms including: pain, debility b. To assist medical decision maker(s) with: better understanding of current medical conditions; weighing benefits/burdens of medical treatment options; making medical treatment decisions. Subjective Subjective/Interval History: Ms. Miranda is a 63 year [facility] resident who presented to [place] ED on 07/06/18 for evaluation of hypotension (BP 72/58) and bandemia on outpatient labs. Patient had a lengthy hospitalization status post CVA in April,. She remained hospitalized until Mar, 2018 when she was discharged to a [place]. After being evaluated in the ED, the patient was admitted for medical management of sepsis, C. difficile, dehydration and hypotension. On vancomycin and cefepime. Follow up visit for symptom management and clarification of medical treatment goals. Discussed patient with ILENE Buckner. Nursing reports no acute events Clinical data: * Hemodynamically stable * Sodium: 145, potassium 3.7, chloride 111, carbon dioxide 28.3, glucose 96, calcium 7.7 * Creatinine: 0.30, GFR >89 * Blood cultures were positive for coag negative staph and MRSA as well as pseudomonas aeruginosa. Repeat blood cultures- negative * Wound cultures were positive for MRSA as well as pseudomonas aeruginosa. * Urine culture-growing Proteus mirabilis Patient is awake with her eyes open. She appeared to nod her head when asked if she would like her face wiped with a cool cloth. Patient's is completely dependent status post CVA with residual hemiparesis, aphasia, dysphasia. She has bilateral lower extremity muscle wasting and contractures. Tolerating artificial nutrition; PEG tube showing no evidence of infection. Patient's son, Henri, has expressed ongoing aggressive goals. General surgery was consulted to evaluate patient for diverting colostomy secondary to C. difficile and stage IV decubitus ulcer; patient will likely go for procedure on Monday07/20/2018. Plastic surgery was consulted for management of decubitus ulcer. Advance Directives Advance Directives Date on File: 07/12/18 Health Care Surrogate Name and Number: SonHenri, designated HCS. Daughter, Geri, is alternate HCS Documented care wishes:: No known documented care wishes have been completed Objective Vital Signs: Vital Signs 07/17/18 20:00 07/18/18 00:00 07/18/18 08:00 Temperature 98.7 F 97.8 F 98.1 F Pulse Rate 78 87 82 Respiratory Rate 22 20 18 Blood Pressure 149/84 H 145/72 H 134/79 Pulse Oximetry 99 99 100 07/18/18 12:00 07/18/18 15:55 Temperature 97.9 F 97.6 F Pulse Rate 84 88 Respiratory Rate 17 17 Blood Pressure 125/82 130/82 Pulse Oximetry 99 100 Intake & Output 07/17/18 07/18/18 07/18/18 18:59 06:59 18:59 Intake Total 1450 / 1450 100 / 100 1350 / 1350 Output Total 1500 / 1500 1450 / 1450 1650 / 1650 Balance -50 / -50 -1350 / -1350 -300 / -300 Weight 58.2 kg Intake: IV 1450 / 1450 100 / 100 1350 / 1350 D5W Inj 1,000 ML @ 75 mls/hr IV 1000 / 1000 1000 / 1000 .CONT .[id number] [facility] Rx#:[id number] Maxipime Inj 2,000 MG In NS Inj 200 / 200 100 / 100 100 / 100 100 ML @ 200 mls/hr IV.SIG Q8H [facility] Rx#:[id number] Vancomycin Inj 1,000 MG In NS 250 / 250 250 / 250 Inj 250 ML @ 250 mls/hr IV.SIG Q18H [facility] Rx#:[id number] Oral 0 / 0 Output: Urine 700 / 700 1150 / 1150 Stool 300 / 300 1000 / 1000 Urine/Stool Mix 800 / 800 Urine Amount (Catheter) 650 / 650 Indwelling Urethral Catheter 650 / 650 Other: Date of Last Bowel Movement 07/17/18 07/17/18 07/18/18 Physical Exam: CONSTITUTIONAL/GENERAL: This is a frail, debilitated female in no acute distress TUBES/LINES/DRAINS: Nasal cannula, PEG, PIV SKIN: No jaundice, rashes, or lesions. PEG tube site without evidence of infection. Skin temperature appropriate. Not diaphoretic. HEAD: Atraumatic. Normocephalic. EYES: Pupils equal and round and reactive. Extraocular motions intact. No scleral icterus. No injection or drainage. Fundi not examined. ENT: Hearing grossly normal. Nose without bleeding or purulent drainage. NECK: Trachea midline. Supple, nontender. No palpable thyroid enlargement or nodularity. CARDIOVASCULAR: Regular rate and rhythm without murmurs, gallops, or rubs. No JVD. Peripheral pulses symmetric. RESPIRATORY/CHEST: Symmetric, unlabored respirations. Clear to auscultation. Breath sounds diminished bilaterally. No wheezes, rales, or rhonchi. GASTROINTESTINAL: Abdomen soft, non-tender, nondistended. Tolerating artificial nutrition. No guarding. Bowel sounds present. GENITOURINARY: Without palpable bladder distension. MUSCULOSKELETAL: Extremities without clubbing, cyanosis, or edema. LYMPHATICS: No palpable cervical or supraclavicular adenopathy. NEUROLOGICAL: Opens her eyes spontaneously, tracks with her eyes. Appears to nod appropriately to some questions some of the time. Flat affect. PSYCHIATRIC: No obvious anxiety/depression. No apparent hallucinations or other psychotic thought process. Diagnostic Tests Laboratory: Laboratory Results - last 72 hr 07/15/18 07/16/18 07/16/18 19:37 06:25 07:56 Sodium 144 Potassium 4.0 Chloride 111 H Carbon Dioxide 27.7 Anion Gap 5 BUN 14 Creatinine 0.35 L Estimated GFR Greater than 89 POC Glucose 101 105 Random Glucose 99 Calcium 7.6 L Vancomycin Trough Random Vancomycin 25.0 07/16/18 07/16/18 07/16/18 12:09 14:27 20:44 Sodium Potassium Chloride Carbon Dioxide Anion Gap BUN Creatinine Estimated GFR POC Glucose 111 H 105 Random Glucose Calcium Vancomycin Trough Random Vancomycin 19.2 07/17/18 07/17/18 07/17/18 05:05 07:49 12:06 Sodium 145 Potassium 3.7 Chloride 111 H Carbon Dioxide 28.3 Anion Gap 6 BUN 12 Creatinine 0.29 L Estimated GFR Greater than 89 POC Glucose 107 111 H Random Glucose 96 Calcium 7.7 L Vancomycin Trough Random Vancomycin 07/17/18 07/17/18 07/18/18 16:43 22:15 06:08 Sodium Potassium Chloride Carbon Dioxide Anion Gap BUN Creatinine 0.30 L Estimated GFR Greater than 89 POC Glucose 100 112 H Random Glucose Calcium Vancomycin Trough 13.4 H Random Vancomycin 07/18/18 07/18/18 07/18/18 07:59 08:16 13:29 Sodium Potassium Chloride Carbon Dioxide Anion Gap BUN Creatinine Estimated GFR POC Glucose 111 H 114 H 93 Random Glucose Calcium Vancomycin Trough Random Vancomycin 07/18/18 16:22 Sodium Potassium Chloride Carbon Dioxide Anion Gap BUN Creatinine Estimated GFR POC Glucose 106 Random Glucose Calcium Vancomycin Trough Random Vancomycin Result Diagrams: 07/15/18 05:04 07/18/18 06:08 Microbiology: Microbiology 07/11/18 18:48 Aerobic Blood Culture - Final Blood - Peripheral No growth in 5 days Anaerobic Blood Culture - Final No growth in 5 days 07/11/18 18:53 Aerobic Blood Culture - Final Blood - Peripheral No growth in 5 days Anaerobic Blood Culture - Final No growth in 5 days Imaging: Chest X-Ray 07/06/18 20:33 CONCLUSION: No acute cardiopulmonary process. Assessment and Plan - Disease Oriented Problem List (1) History of CVA (cerebrovascular accident) Comment: Status post hemorrhagic CVA in 04/2017 Chronic neurological deficits (2) Urinary tract infection Comment: Urine culture + proteus mirabilis (3) Sepsis Comment: Initial blood cultures positive for coag negative staph, MRSA and pseudomonas aeruginosa Follow-up blood culture on 07/11/2018-negative On vancomycin and cefepime. Infectious disease following. (4) C. difficile diarrhea Comment: On vancomycin via PEG Contact isolation (5) Sacral wound Comment: Stage IV Wound culture growing MRSA and pseudomonas aeruginosa Wound care nurse following Wound care physician consulted Patient would benefit from diverting colostomy however likely too malnourished to tolerate surgery (6) Dehydration Comment: Appears to be secondary to poor intake and C. difficile colitis Following labs Pertinent Non-Medical Issues: Psychosocial: Patient was born in [place]. She has 5 brothers and 5 sisters. Her childhood was described as happy. Patient has a history of homelessness and has been arrested for trespassing. She graduated from high school, then went to trade school. She worked in [employer] and also as a [employer]OCK [employer]ER. Patient was when she was 21 years old but was 3 years later. Patient had 2 sons and 1 daughter. Patient has noncompliance with her medical regimen. She was Brock acted in the past secondary to delusions, paranoia and visual/auditory hallucinations. Spiritual: Catholic latonya Legal: Son, Henri Birmingham, is designated as the healthcare surrogate decision maker. Daughter, Geri, is the alternate healthcare surrogate decision maker Ethical issues impacting care: No known ethical issues impacting care at this time. Important Contacts: Geri Wallace, daughter: [phone]. (This number no longer belongs to [facility] ) Henri Birmingham, son: [phone] King Elsy, brother: [phone] Prognosis: Patient is a frail, cachectic alf resident status post CVA in April, with residual hemiparesis and aphasia. She is nonverbal and dependent for all care. She is now admitted with sepsis, C. difficile and a stage IV sacral decubitus wound. Patient's condition is guarded. She is at risk for deterioration if the source of infection cannot be controlled. Code Status: Full Code Plan: * FULL CODE * Decision making: Patient is unable to participate in establishment of medical treatment goals s/p CVA with residual hemiparesis and aphasia. She designated her son, Henri Birmingham, as her health care surrogate decision maker. Daughter, Aleena Wallace, is the alternate health care surrogate. * Patient's son verbalizes aggressive goals. * Discussed patient with ILENE Buckner * Symptom management: == Debility: Patient has resided in a NH status post CVA in 04/2017 with residual hemiparesis and aphasia. She is dependent for all care. She is able to track with her eyes. Flat affect. She appeared to nod when she was asked if she wanted her face wiped with a cool cloth. Extremities are contracted. Dietitian recommending Tyshawn 1 pack BID via PEG to aid in healing. == Pain: Likely sources of pain are bedbound status, invasive lines, large tunneled sacral wound, sepsis, C. difficile infection, contractures. Patient was receiving tramadol 50 mg 2 times daily prior to admission. Monitor for signs and symptoms of nonverbal pain such as grimacing and moaning. May want to consider restarting tramadol if indicated. * Patient's son, Henri, has expressed ongoing aggressive goals. General surgery was consulted to evaluate patient for diverting colostomy secondary to C. difficile and stage IV decubitus ulcer; patient will likely go for procedure on Monday07/20/2018. Plastic surgery was consulted for management of decubitus ulcer. * Palliative care will continue to follow this patient throughout her hospitalization to establish stress, assist with symptom management and clarification of medical treatment goals. Attestation Attestation: To help prompt me to consider important information that might be impacting today's encounter and assessment, information from prior notes written by myself or my colleagues may have been "brought forward" into today's note. My signature on this note, however, is an attestation that I personally performed the exam, history, and/or decision-making noted today, and, unless otherwise indicated, the interactions with patient, family, and staff as well as the review of records all occurred today. I also attest that the listed assessment and stated plan reflect my best clinical judgment today based on the combination of historical information, prior notes, and today's exam/ interactions. When time spent is documented, it refers only to time spent today by the signer, or if indicated, combined time spent today by collaborating physician/nurse practitioner.
[2018-07-18] MEDS: Vancomycin Inj 750 MG in Sodium Chlor 0.9% Inj 250 ML IV.SIG SCH (17:34)
[2018-07-19] MEDS: Vancomycin Inj 750 MG in Sodium Chlor 0.9% Inj 250 ML IV.SIG SCH ×2 (06:17→17:56)
[2018-07-19] MEDS: Dextrose 5% in Water Inj 1,000 ML IV.CONT SCH ×2 (06:18→12:24)
[2018-07-19] MEDS: Insulin NovoLOG Aspart Correctional Sugar Inj SQ SCH ×4 (07:34→21:10)
[2018-07-19] MEDS: Sertraline 50 MG Tablet PO SCH (09:15)
[2018-07-19] MEDS: Lactobacillus Acidophilus/L. Spores Tablet G-TUBE SCH ×3 (09:15→17:00)
--- NOTE | 2018-07-19 11:26 | P.PNIM ---
Subjective Interval history: No changes overnight still with diarrhea and loose stools. Physical Exam Vital signs: Vital Signs 07/18/18 12:00 07/18/18 15:55 07/18/18 20:00 Temperature 97.9 F 97.6 F 98.2 F Pulse Rate 84 88 109 H Respiratory Rate 17 17 16 Blood Pressure 125/82 130/82 139/57 L Pulse Oximetry 99 100 95 07/19/18 00:00 07/19/18 08:00 Temperature 98.5 F 98.5 F Pulse Rate 87 90 Respiratory Rate 16 18 Blood Pressure 145/91 H 135/81 Pulse Oximetry 99 98 Intake & Output 07/18/18 07/19/18 07/19/18 18:59 06:59 18:59 Intake Total 1880 / 1880 1357.5 / 1357.5 357.5 / 357.5 Output Total 1650 / 1650 1700 / 1700 Balance 230 / 230 -342.5 / -342.5 357.5 / 357.5 Weight 58.4 kg Intake: IV 1350 / 1350 1357.5 / 1357.5 357.5 / 357.5 D5W Inj 1,000 ML @ 75 mls/hr IV 1000 / 1000 1000 / 1000 .CONT .[id number] [facility] Rx#:[id number] Maxipime Inj 2,000 MG In NS Inj 100 / 100 100 / 100 100 / 100 100 ML @ 200 mls/hr IV.SIG Q8H [facility] Rx#:[id number] Vancomycin Inj 1,000 MG In NS 250 / 250 Inj 250 ML @ 250 mls/hr IV.SIG Q18H [facility] Rx#:[id number] Vancomycin Inj 750 MG In NS Inj 257.5 / 257.5 257.5 / 257.5 250 ML @ 250 mls/hr IV.SIG Q12H [facility] Rx#:[id number] Oral 0 / 0 Tube Feeding 440 / 440 Tube Irrigant 90 / 90 Output: Urine 650 / 650 Stool 1000 / 1000 400 / 400 Urine Amount (Catheter) 650 / 650 650 / 650 Indwelling Urethral Catheter 650 / 650 650 / 650 Other: Date of Last Bowel Movement 07/18/18 07/18/18 07/19/18 Narrative: GENERAL: Well-developed fair-nourished. Thin, frail, chronically ill- appearing. In no acute distress. SKIN: Warm and dry. No lesions noted. CARDIOVASCULAR: Regular rate and rhythm. RESPIRATORY: No accessory muscle use. Clear to auscultation. Breath sounds equal bilaterally. GASTROINTESTINAL: Abdomen soft, non-tender, nondistended. Bowel sounds x4. PEG and rectal tubes in place. MUSCULOSKELETAL: No obvious deformities. No clubbing or cyanosis. No edema. Atrophic NEUROLOGICAL: Awake. Tracks with eyes. Nonverbal. residual hemiparesis and aphasia - Urinary Catheter Management Indwelling Urethral Catheter Cath placed during this visit: yes, but has since been removed by the nurse Reason for continuing: Severe pressure ulcer/wound Insertion date: 07/12/18 Insertion time: 01:00 Removal date: 07/12/18 Removal time: 12:50 Results - Labs CBC & Chem 7: 07/15/18 05:04 07/18/18 06:08 Laboratory Results - last 24 hr 07/18/18 07/18/18 07/19/18 13:29 16:22 07:32 POC Glucose 93 106 116 H Assessment and Plan - Plan 63 year old female with a history of hemorrhagic CVA and severe chronic neurological deficit, admitted with diarrhea from C. Diff. Sepsis Pseudomonas bacteremia and MRSA bacteremia Proteus catheter related urinary tract infection prehospital + Blood cultures, started on IV vancomycin and cefepime -ID consulted, greatly appreciate assistance -Likely source of sepsis is stage IV coccyx ulcer -Final ID recommendations for antibiotic pending Follow-up with final blood cultures. Discussed with Dr. Cruz who feels if family continues to want aggressive treatment will need a evaluation consult for a colostomy. For diverting colostomy with Dr. Monreal tomorrow pending son's consent. Severe malnutritioncontinue with tube feeds Hyponatremia Dehydration secondary to diarrhea These appears secondary to C. difficile colitis sodium levels continue to improve, will discontinue fluids. C Diff Colitis Leukocytosis PEG p.o. vancomycin Isolation Follow for improvement Dehydration AKIimproved Follow renal function Avoid nephrotoxins IV Hydration continued Hypotension Treat dehydration Hx of Hemorrhagic CVA Chronic severe neurological deficits Supportive Care Chronic sacral ulcer Stage IV Wound care nurse following Wound care physician consulted, Dr. Morales performed bedside debridement of wound Patient would benefit from diverting colostomy Start Zoloft for possible underlying depression. DVT Prophylaxis SCDs Palliative care continues to try to contact children for meeting to establish goals. Extremely poor prognosis, however in the past children desired aggressive treatment. Discharge Planning: Per infectious disease and clinical progression
--- NOTE | 2018-07-19 18:42 | P.PNGS ---
Subjective Interval history: DAILY PROGRESS NOTE FOR SURGICAL ATTENDING, DR. DIPAK KOROMA Patient resting in bed; aphasic Son Henri at bedside--- he is unsure if he wants to proceed with colostomy Physical Exam Vital signs: Vital Signs 07/18/18 20:00 07/19/18 00:00 07/19/18 08:00 Temperature 98.2 F 98.5 F 98.5 F Pulse Rate 109 H 87 90 Respiratory Rate 16 16 18 Blood Pressure 139/57 L 145/91 H 135/81 Pulse Oximetry 95 99 98 07/19/18 12:00 Temperature 98.0 F Pulse Rate 18 L Respiratory Rate 18 Blood Pressure 154/92 H Pulse Oximetry 98 Intake & Output 07/18/18 07/19/18 07/19/18 18:59 06:59 18:59 Intake Total 1880 / 1880 1357.5 / 1357.5 3231.5 / 3231.5 Output Total 1650 / 1650 1700 / 1700 2720 / 2720 Balance 230 / 230 -342.5 / -342.5 511.5 / 511.5 Weight 58.4 kg Intake: IV 1350 / 1350 1357.5 / 1357.5 1557.5 / 1557.5 D5W Inj 1,000 ML @ 75 mls/hr IV 1000 / 1000 1000 / 1000 1000 / 1000 .CONT .[id number] [facility] Rx#:[id number] Maxipime Inj 2,000 MG In NS Inj 100 / 100 100 / 100 300 / 300 100 ML @ 200 mls/hr IV.SIG Q8H [facility] Rx#:[id number] Vancomycin Inj 1,000 MG In NS 250 / 250 Inj 250 ML @ 250 mls/hr IV.SIG Q18H [facility] Rx#:[id number] Vancomycin Inj 750 MG In NS Inj 257.5 / 257.5 257.5 / 257.5 250 ML @ 250 mls/hr IV.SIG Q12H [facility] Rx#:[id number] Oral 0 / 0 0 / 0 Tube Feeding 440 / 440 1274 / 1274 Tube Irrigant 90 / 90 Water Bolus Amount 400 / 400 Output: Urine 650 / 650 650 / 650 Stool 1000 / 1000 400 / 400 400 / 400 Urine/Stool Mix 800 / 800 Urine Amount (Catheter) 650 / 650 650 / 650 650 / 650 Indwelling Urethral Catheter 650 / 650 650 / 650 650 / 650 Gastric Drainage 220 / 220 Pre-Hospital Gastrostomy Tube ( 220 / 220 PEG) Other: # Voids 2 Date of Last Bowel Movement 07/18/18 07/18/18 07/19/18 # Bowel Movements 4 Narrative: Aphasic; eyes open Abd soft; TF via G tube Severely contracted BLE - Urinary Catheter Management Indwelling Urethral Catheter Cath placed during this visit: yes, but has since been removed by the nurse Reason for continuing: Severe pressure ulcer/wound Insertion date: 07/12/18 Insertion time: 01:00 Removal date: 07/12/18 Removal time: 12:50 Assessment and Plan - Assessment (1) Decubitus ulcer Code(s): L89.90 - Pressure ulcer of unspecified site, unspecified stage Status : Acute Plan: 63 year old female s/p CVA with stage 4 decubitus ulcer in need to diverting loop colostomy -Son Henri undecided about colostomy -I tentatively have the patient scheduled for tomorrow at 0900 -Will await to here from the son about his decision; I have provided him my number -Will stop TF at [place] in case son would like to proceed tomorrow AM -I discussed with RN Nata - Attending Attestation NOTE FOR SURGICAL ATTENDING, DR. DIPAK KOROMA I agree with above assessment and plan. The exam, history, and the medical decision-making described in the above note were completed with the assistance of the mid-level provider. I reviewed and agree with the findings presented. I attest that I had a [id number] encounter with the patient on the same day, and personally performed and documented my assessment and findings in the medical record. The following services were provided during this hospital visit: Chart data review, vital sign assessments/reviewing monitor data Review of consultations notes if present. Medication orders/review and/or management Ordering and/or reviewing lab tests Ordering and/or interpreting/reviewing x-rays and/or diagnostic studies Care of the patient and discussion of the patient with the care team Documentation time To help prompt me to consider important information that might be impacting today's encounter and assessment, Information from prior notes written by myself or my colleagues may have been "brought forward/copy and pasted" into today's note.
[2018-07-20] MEDS: Dextrose 5% in Water Inj 1,000 ML IV.CONT SCH ×2 (01:44→16:31)
[2018-07-20] MEDS ORDERED: Metoprolol Tartrate 25 MG Tablet PO ONE (03:07)
[2018-07-20] MEDS ORDERED: Chlorhexidine Gluconate 2% 1 Pack (2 Cloths) TOPICAL ONE (03:07)
[2018-07-20] MEDS ORDERED: Sodium Chlor 0.9% Inj 500 ML IV.SIG SCH (04:00)
[2018-07-20] MEDS ORDERED: Pharmacy Ordered Lab Info OTHER SCH (05:45)
[2018-07-20] MEDS: Vancomycin Inj 750 MG in Sodium Chlor 0.9% Inj 250 ML IV.SIG SCH (05:52)
[2018-07-20 07:05] LABS: INR 1.1 Ratio; Prothrombin Time 11.4 sec (9.8-11.6)
[2018-07-20 07:14] LABS: Baso % (Auto) 0.9 % (0.0-2.0); Eos # (Auto) 0.2 th/mm3 (0.0-0.4); Eos % (Auto) 6.3 % (0.0-4.0); Hematocrit 25.1 % (35.0-46.0); Hemoglobin 8.2 gm/dL (11.6-15.3); Lymph # (Auto) 1.2 th/mm3 (1.0-4.8); Lymph % (Auto) 30.8 % (9.0-44.0); Mean Corpuscular HGB Conc 32.8 % (32.0-36.0); Mean Corpuscular Volume 79.3 fL (80.0-100.0); Mean Platelet Volume 8.9 fL (7.0-11.0); Mono # (Auto) 0.6 th/mm3 (0.0-0.9); Mono % (Auto) 16.2 % (0.0-8.0); Neut # (Auto) 1.8 th/mm3 (1.8-7.7); Neut % (Auto) 45.8 % (16.0-70.0); Platelet Count 220 th/mm3 (150-450); Red Blood Count 3.17 mil/mm3 (4.00-5.30); Red Cell Distribution Width 19.4 % (11.6-17.2); White Blood Count 3.9 th/mm3 (4.0-11.0)
[2018-07-20] MEDS: Insulin NovoLOG Aspart Correctional Sugar Inj SQ SCH ×4 (07:22→20:30)
--- NOTE | 2018-07-20 07:23 | P.PNGS ---
Subjective Interval history: DAILY PROGRESS NOTE FOR SURGICAL ATTENDING, DR. DIPAK KOROMA Spoke with Henri (Son) at 0715--- he wants to discuss to procedure with his uncle and get back to me next week Patient resting in bed Physical Exam Vital signs: Vital Signs 07/19/18 08:00 07/19/18 12:00 07/19/18 20:00 Temperature 98.5 F 98.0 F 97.9 F Pulse Rate 90 18 L 84 Respiratory Rate 18 18 16 Blood Pressure 135/81 154/92 H 150/79 H Pulse Oximetry 98 98 99 07/19/18 20:59 07/20/18 00:00 Temperature 98.6 F Pulse Rate 81 Respiratory Rate 17 Blood Pressure 143/91 H Pulse Oximetry 99 100 Intake & Output 07/19/18 07/20/18 07/20/18 18:59 06:59 18:59 Intake Total 3231.5 / 3231.5 2149.0 / 2149.0 Output Total 2720 / 2720 950 / 950 Balance 511.5 / 511.5 1199.0 / 1199.0 Weight 58.4 kg Intake: IV 1557.5 / 1557.5 1615.0 / 1615.0 D5W Inj 1,000 ML @ 75 mls/hr IV 1000 / 1000 1000 / 1000 .CONT .[id number] [facility] Rx#:[id number] Maxipime Inj 2,000 MG In NS Inj 300 / 300 100 / 100 100 ML @ 200 mls/hr IV.SIG Q8H [facility] Rx#:[id number] Vancomycin Inj 750 MG In NS Inj 257.5 / 257.5 515.0 / 515.0 250 ML @ 250 mls/hr IV.SIG Q12H [facility] Rx#:[id number] Oral 0 / 0 0 / 0 Tube Feeding 1274 / 1274 534 / 534 Water Bolus Amount 400 / 400 Output: Urine 650 / 650 950 / 950 Stool 400 / 400 Urine/Stool Mix 800 / 800 Urine Amount (Catheter) 650 / 650 Indwelling Urethral Catheter 650 / 650 Gastric Drainage 220 / 220 Pre-Hospital Gastrostomy Tube ( 220 / 220 PEG) Other: # Voids 2 Date of Last Bowel Movement 07/19/18 07/19/18 # Bowel Movements 4 Narrative: Aphasic G tube in place - Urinary Catheter Management Indwelling Urethral Catheter Cath placed during this visit: yes, but has since been removed by the nurse Reason for continuing: Severe pressure ulcer/wound Insertion date: 07/12/18 Insertion time: 01:00 Removal date: 07/12/18 Removal time: 12:50 Assessment and Plan - Assessment (1) Decubitus ulcer Code(s): L89.90 - Pressure ulcer of unspecified site, unspecified stage Status : Acute Plan: 63 year old female s/p CVA with stage 4 decubitus ulcer in need to diverting loop colostomy -Aram Álvarez has now decided to wait about colostomy---will get back with me next week on his decision -Restart TF -General Surgery will see only PRN over the weekend - Attending Attestation NOTE FOR SURGICAL ATTENDING, DR. DIPAK KOROMA I agree with above assessment and plan. The exam, history, and the medical decision-making described in the above note were completed with the assistance of the mid-level provider. I reviewed and agree with the findings presented. I attest that I had a [id number] encounter with the patient on the same day, and personally performed and documented my assessment and findings in the medical record. The following services were provided during this hospital visit: Chart data review, vital sign assessments/reviewing monitor data Review of consultations notes if present. Medication orders/review and/or management Ordering and/or reviewing lab tests Ordering and/or interpreting/reviewing x-rays and/or diagnostic studies Care of the patient and discussion of the patient with the care team Documentation time To help prompt me to consider important information that might be impacting today's encounter and assessment, Information from prior notes written by myself or my colleagues may have been "brought forward/copy and pasted" into today's note.
[2018-07-20 07:34] LABS: Anion Gap 6 meq/L (5-15); Blood Urea Nitrogen 9 mg/dL (7-18); Calcium 8.2 mg/dL (8.5-10.1); Carbon Dioxide 30.6 meq/L (21.0-32.0); Chloride 106 meq/L (98-107); Glomerular Filtration Rate Greater Than 89 mL/min (>89); Glucose,Random 84 mg/dL (74-106); Potassium 3.6 meq/L (3.5-5.1); Sodium 143 meq/L (136-145)
[2018-07-20] MEDS: Sertraline 50 MG Tablet PO SCH (09:22)
[2018-07-20] MEDS: Lactobacillus Acidophilus/L. Spores Tablet G-TUBE SCH ×4 (09:22→19:18)
--- NOTE | 2018-07-20 11:56 | P.PNIM ---
Subjective Interval history: No acute changes overnight. Continues to have large amounts of loose stools. Physical Exam Vital signs: Vital Signs 07/19/18 12:00 07/19/18 20:00 07/19/18 20:59 Temperature 98.0 F 97.9 F Pulse Rate 18 L 84 Respiratory Rate 18 16 Blood Pressure 154/92 H 150/79 H Pulse Oximetry 98 99 99 07/20/18 00:00 07/20/18 08:00 Temperature 98.6 F 98.0 F Pulse Rate 81 85 Respiratory Rate 17 19 Blood Pressure 143/91 H 145/90 H Pulse Oximetry 100 99 Intake & Output 07/19/18 07/20/18 07/20/18 18:59 06:59 18:59 Intake Total 3231.5 / 3231.5 2149.0 / 2149.0 Output Total 2720 / 2720 950 / 950 Balance 511.5 / 511.5 1199.0 / 1199.0 Weight 58.4 kg Intake: IV 1557.5 / 1557.5 1615.0 / 1615.0 D5W Inj 1,000 ML @ 75 mls/hr IV 1000 / 1000 1000 / 1000 .CONT .[id number] [facility] Rx#:[id number] Maxipime Inj 2,000 MG In NS Inj 300 / 300 100 / 100 100 ML @ 200 mls/hr IV.SIG Q8H [facility] Rx#:[id number] Vancomycin Inj 750 MG In NS Inj 257.5 / 257.5 515.0 / 515.0 250 ML @ 250 mls/hr IV.SIG Q12H [facility] Rx#:[id number] Oral 0 / 0 0 / 0 Tube Feeding 1274 / 1274 534 / 534 Water Bolus Amount 400 / 400 Output: Urine 650 / 650 950 / 950 Stool 400 / 400 Urine/Stool Mix 800 / 800 Urine Amount (Catheter) 650 / 650 Indwelling Urethral Catheter 650 / 650 Gastric Drainage 220 / 220 Pre-Hospital Gastrostomy Tube ( 220 / 220 PEG) Other: # Voids 2 Date of Last Bowel Movement 07/19/18 07/19/18 # Bowel Movements 4 Narrative: GENERAL: This is a well-nourished, well-developed patient, in no apparent distress. CARDIOVASCULAR: Regular rate and rhythm RESPIRATORY: Clear to auscultation. Breath sounds equal bilaterally. No wheezes , rales, or rhonchi. GASTROINTESTINAL: Abdomen soft, non-tender, nondistended. Normal active bowel sounds, G-tube in place MUSCULOSKELETAL: Lower extremity contracted and atrophic NEURO: Nonverbal, tracks with eyes, a phasic's. Did not follow commands. - Urinary Catheter Management Indwelling Urethral Catheter Cath placed during this visit: yes, but has since been removed by the nurse Reason for continuing: Severe pressure ulcer/wound Insertion date: 07/12/18 Insertion time: 01:00 Removal date: 07/12/18 Removal time: 12:50 Results - Labs CBC & Chem 7: 07/20/18 06:24 07/20/18 06:24 Laboratory Results - last 24 hr 07/19/18 07/19/18 07/19/18 12:22 16:43 21:09 WBC RBC Hgb Hct MCV MCH MCHC RDW Plt Count MPV Neut % (Auto) Lymph % (Auto) [place] % (Auto) Eos % (Auto) Baso % (Auto) Neut # (Auto) Lymph # (Auto) [place] # (Auto) Eos # (Auto) Baso # (Auto) WBC Differential Differential Comment PT INR Sodium Potassium Chloride Carbon Dioxide Anion Gap BUN Creatinine Estimated GFR POC Glucose 108 122 H 111 H Random Glucose Calcium 07/20/18 07/20/18 07/20/18 06:24 06:24 06:24 WBC 3.9 L RBC 3.17 L Hgb 8.2 L Hct 25.1 L MCV 79.3 L MCH 26.0 L MCHC 32.8 RDW 19.4 H Plt Count 220 MPV 8.9 Neut % (Auto) 45.8 Lymph % (Auto) 30.8 [place] % (Auto) 16.2 H Eos % (Auto) 6.3 H Baso % (Auto) 0.9 Neut # (Auto) 1.8 Lymph # (Auto) 1.2 [place] # (Auto) 0.6 Eos # (Auto) 0.2 Baso # (Auto) 0.0 WBC Differential . Differential Comment Auto diff final PT 11.4 INR 1.1 Sodium 143 Potassium 3.6 Chloride 106 Carbon Dioxide 30.6 Anion Gap 6 BUN 9 Creatinine 0.23 L Estimated GFR Greater than 89 POC Glucose Random Glucose 84 Calcium 8.2 L 07/20/18 07:21 WBC RBC Hgb Hct MCV MCH MCHC RDW Plt Count MPV Neut % (Auto) Lymph % (Auto) [place] % (Auto) Eos % (Auto) Baso % (Auto) Neut # (Auto) Lymph # (Auto) [place] # (Auto) Eos # (Auto) Baso # (Auto) WBC Differential Differential Comment PT INR Sodium Potassium Chloride Carbon Dioxide Anion Gap BUN Creatinine Estimated GFR POC Glucose 90 Random Glucose Calcium Assessment and Plan - Plan 63 year old female with a history of hemorrhagic CVA and severe chronic neurological deficit, admitted with diarrhea from C. Diff. Sepsis Pseudomonas bacteremia and MRSA bacteremia Proteus catheter related urinary tract infection prehospital + Blood cultures, started on IV vancomycin and cefepime -ID consulted, greatly appreciate assistance -Likely source of sepsis is stage IV coccyx ulcer -Final ID recommendations for antibiotic pending Follow-up with final blood cultures. Discussed with Dr. Cruz who feels if family continues to want aggressive treatment will need a evaluation consult for a colostomy. For diverting colostomy with Dr. Monreal pending son's consent. At this time, son would want to discuss further with his uncle and will let us know final decision next week. Severe malnutritioncontinue with tube feeds Hyponatremia Dehydration secondary to diarrhea These appears secondary to C. difficile colitis sodium levels continue to improve, will discontinue fluids. C Diff Colitis Leukocytosis PEG p.o. vancomycin Isolation Follow for improvement Dehydration AKIimproved Follow renal function Avoid nephrotoxins IV Hydration continued Hypotension Treat dehydration Hx of Hemorrhagic CVA Chronic severe neurological deficits Supportive Care Chronic sacral ulcer Stage IV Wound care nurse following Wound care physician consulted, Dr. Morales performed bedside debridement of wound Patient would benefit from diverting colostomy pending son's decision Start Zoloft for possible underlying depression. DVT Prophylaxis SCDs Palliative care continues to try to contact children for meeting to establish goals. Extremely poor prognosis, however in the past children desired aggressive treatment. Discharge Planning: Per infectious disease and clinical progression
[2018-07-20] MEDS: Vancomycin Inj 1,000 MG in Sodium Chlor 0.9% Inj 250 ML IV.SIG SCH ×2 (16:30→19:18)
[2018-07-21] MEDS: Vancomycin Inj 1,000 MG in Sodium Chlor 0.9% Inj 250 ML IV.SIG SCH ×2 (05:41→17:36)
[2018-07-21] MEDS: Dextrose 5% in Water Inj 1,000 ML IV.CONT SCH ×2 (07:34→22:35)
[2018-07-21] MEDS: Sertraline 50 MG Tablet PO SCH (09:54)
[2018-07-21] MEDS: Lactobacillus Acidophilus/L. Spores Tablet G-TUBE SCH ×3 (09:54→17:36)
[2018-07-21] MEDS: Insulin NovoLOG Aspart Correctional Sugar Inj SQ SCH ×4 (09:54→22:33)
--- NOTE | 2018-07-21 11:09 | P.PNIM ---
Subjective Interval history: No changes overnight per nursing staff still with large amounts of loose stools. Physical Exam Vital signs: Vital Signs 07/20/18 12:00 07/20/18 16:00 07/20/18 20:00 Temperature 97.9 F 97 F L 98.5 F Pulse Rate 80 89 82 Respiratory Rate 18 19 17 Blood Pressure 123/79 168/102 H 138/90 Pulse Oximetry 97 98 100 07/20/18 20:09 07/21/18 08:00 Temperature 97.3 F L Pulse Rate 58 L Respiratory Rate 20 Blood Pressure 166/75 H Pulse Oximetry 100 95 Intake & Output 07/20/18 07/21/18 07/21/18 18:59 06:59 18:59 Intake Total 1100 / 1100 1313 / 1313 1000 / 1000 Output Total 540 / 540 Balance 560 / 560 1313 / 1313 1000 / 1000 Weight 58.4 kg Intake: IV 1100 / 1100 700 / 700 1000 / 1000 D5W Inj 1,000 ML @ 60 mls/hr IV 1000 / 1000 1000 / 1000 .CONT .[id number] [facility] Rx#:[id number] Maxipime Inj 2,000 MG In NS Inj 100 / 100 200 / 200 100 ML @ 200 mls/hr IV.SIG Q8H [facility] Rx#:[id number] Vancomycin Inj 1,000 MG In NS 500 / 500 Inj 250 ML @ 250 mls/hr IV.SIG Q12H [facility] Rx#:[id number] Oral 0 / 0 50 / 50 Tube Feeding 563 / 563 Output: Stool 540 / 540 Other: # Voids 1,600 3 # Bowel Movements 5 Narrative: GENERAL: This is a thin, well-developed patient, in no apparent distress. CARDIOVASCULAR: Regular rate and rhythm RESPIRATORY: Clear to auscultation. Breath sounds equal bilaterally. No wheezes , rales, or rhonchi. GASTROINTESTINAL: Abdomen soft, non-tender, nondistended. Normal active bowel sounds, G-tube in place MUSCULOSKELETAL: Lower extremity contracted and atrophic NEURO: Nonverbal, tracks with eyes, a phasic's. Did not follow commands. - Urinary Catheter Management Indwelling Urethral Catheter Cath placed during this visit: yes, but has since been removed by the nurse Reason for continuing: Severe pressure ulcer/wound Insertion date: 07/12/18 Insertion time: 01:00 Removal date: 07/12/18 Removal time: 12:50 Results - Labs CBC & Chem 7: 07/20/18 06:24 07/20/18 06:24 Laboratory Results - last 24 hr 07/20/18 07/20/18 07/20/18 12:04 16:28 20:26 POC Glucose 110 103 110 07/21/18 07:44 POC Glucose 106 Assessment and Plan - Plan 63 year old female with a history of hemorrhagic CVA and severe chronic neurological deficit, admitted with diarrhea from C. Diff. Sepsis Pseudomonas bacteremia and MRSA bacteremia Proteus catheter related urinary tract infection prehospital + Blood cultures, started on IV vancomycin and cefepime -ID consulted, greatly appreciate assistance and recommendations -Likely source of sepsis is stage IV coccyx ulcer -Final ID recommendations for antibiotic pending Follow-up with final blood cultures. Discussed with Dr. Cruz who feels if family continues to want aggressive treatment will need a evaluation consult for a colostomy. For diverting colostomy with Dr. Monreal pending son's consent. At this time, son would want to discuss further with his uncle and will let us know final decision in the next few days. Severe malnutritioncontinue with tube feeds Hyponatremia Dehydration secondary to diarrhea These appears secondary to C. difficile colitis sodium levels continue to improve, will discontinue fluids. C Diff Colitis Leukocytosis PEG p.o. vancomycin Isolation Follow for improvement Dehydration AKIimproved Follow renal function Avoid nephrotoxins IV Hydration continued Hypotension Treat dehydration Hx of Hemorrhagic CVA Chronic severe neurological deficits Supportive Care Chronic sacral ulcer Stage IV Wound care nurse following Wound care physician consulted, Dr. Morales performed bedside debridement of wound Patient would benefit from diverting colostomy pending son's decision Start Zoloft for possible underlying depression. DVT Prophylaxis SCDs Palliative care continues to try to contact children for meeting to establish goals. Extremely poor prognosis, however children desired aggressive treatment. Discharge Planning: Per infectious disease and clinical progression
[2018-07-21] MEDS: BACITRACIN TOPICAL SCH (22:34)
[2018-07-21] MEDS: POLYMYXIN TOPICAL SCH (22:34)
[2018-07-22] MEDS: Vancomycin Inj 1,000 MG in Sodium Chlor 0.9% Inj 250 ML IV.SIG SCH (05:39)
[2018-07-22] MEDS ORDERED: Pharmacy Ordered Lab Info OTHER ONE (05:45)
[2018-07-22 06:37] LABS: Glomerular Filtration Rate Greater Than 89 mL/min (>89); Vancomycin,Trough 20.7 mcg/mL (5.0-10.0)
[2018-07-22] MEDS: Sertraline 50 MG Tablet PO SCH (08:42)
[2018-07-22] MEDS: Lactobacillus Acidophilus/L. Spores Tablet G-TUBE SCH ×3 (08:42→17:08)
[2018-07-22] MEDS: Insulin NovoLOG Aspart Correctional Sugar Inj SQ SCH ×4 (08:43→20:56)
[2018-07-22] MEDS: BACITRACIN TOPICAL SCH ×2 (08:43→20:56)
[2018-07-22] MEDS: POLYMYXIN TOPICAL SCH ×2 (08:43→20:56)
--- NOTE | 2018-07-22 10:53 | P.PNIM ---
Subjective Interval history: No changes overnight per nursing staff patient still with large amount of loose stools. No fevers or chills. Tolerating tube feeds. Physical Exam Vital signs: Vital Signs 07/21/18 12:00 07/21/18 16:00 07/21/18 18:44 Temperature 97.4 F L 97.8 F Pulse Rate 81 81 Respiratory Rate 20 20 Blood Pressure 144/83 H 165/99 H 162/88 H Pulse Oximetry 100 100 07/21/18 20:00 07/22/18 00:49 Temperature 98.5 F 98.1 F Pulse Rate 93 H 80 Respiratory Rate 17 17 Blood Pressure 144/78 H 168/86 H Pulse Oximetry 99 99 Intake & Output 07/21/18 07/22/18 07/22/18 18:59 06:59 18:59 Intake Total 1450 / 1450 100 / 100 Output Total 750 / 750 1000 / 1000 Balance 700 / 700 -900 / -900 Weight 58 kg Intake: IV 1450 / 1450 100 / 100 D5W Inj 1,000 ML @ 60 mls/hr IV 1000 / 1000 .CONT .[id number] [facility] Rx#:[id number] Maxipime Inj 2,000 MG In NS Inj 200 / 200 100 / 100 100 ML @ 200 mls/hr IV.SIG Q8H [facility] Rx#:[id number] Vancomycin Inj 1,000 MG In NS 250 / 250 Inj 250 ML @ 250 mls/hr IV.SIG Q12H [facility] Rx#:[id number] Output: Urine 500 / 500 Stool 250 / 250 Urine Amount (Catheter) 1000 / 1000 Indwelling Urethral Catheter 1000 / 1000 Narrative: GENERAL: This is a thin, well-developed patient, in no apparent distress. CARDIOVASCULAR: Regular rate and rhythm RESPIRATORY: Clear to auscultation. Breath sounds equal bilaterally. No wheezes , rales, or rhonchi. GASTROINTESTINAL: Abdomen soft, non-tender, nondistended. Normal active bowel sounds, G-tube in place MUSCULOSKELETAL: Lower extremity contracted and atrophic NEURO: Nonverbal, tracks with eyes, aphasic. Did not follow commands. - Urinary Catheter Management Indwelling Urethral Catheter Cath placed during this visit: yes, but has since been removed by the nurse Reason for continuing: Severe pressure ulcer/wound Insertion date: 07/12/18 Insertion time: 01:00 Removal date: 09/06/18 Removal time: 12:50 Results - Labs CBC & Chem 7: 07/20/18 06:24 07/22/18 05:35 Laboratory Results - last 24 hr 07/21/18 07/21/18 07/21/18 12:44 16:47 19:44 Creatinine Estimated GFR POC Glucose 110 104 111 H Vancomycin Trough 07/22/18 07/22/18 05:35 07:12 Creatinine 0.29 L Estimated GFR Greater than 89 POC Glucose 104 Vancomycin Trough 20.7 H Assessment and Plan - Plan 63 year old female with a history of hemorrhagic CVA and severe chronic neurological deficit, admitted with diarrhea from C. Diff. Sepsis Pseudomonas bacteremia and MRSA bacteremia Proteus catheter related urinary tract infection prehospital + Blood cultures, started on IV vancomycin and cefepime -ID consulted, greatly appreciate assistance and recommendations -Likely source of sepsis is stage IV coccyx ulcer -Final ID recommendations for antibiotic pending final repeat blood cultures are negative. Discussed with Dr. Cruz who feels if family continues to want aggressive treatment will need a evaluation consult for a colostomy. For diverting colostomy with Dr. Monreal pending son's consent. At this time, son would want to discuss further with his uncle and will let us know final decision in the next few days. Severe malnutritioncontinue with tube feeds Hyponatremia Dehydration secondary to diarrhea These appears secondary to C. difficile colitis sodium levels continue to improve, will discontinue fluids. C Diff Colitis Leukocytosis PEG p.o. vancomycin Isolation Follow for improvement Dehydration AKIimproved Follow renal function Avoid nephrotoxins IV Hydration continued Hypotension Treat dehydration Hx of Hemorrhagic CVA Chronic severe neurological deficits Supportive Care Chronic sacral ulcer Stage IV Wound care nurse following Wound care physician consulted, Dr. Morales performed bedside debridement of wound Patient would benefit from diverting colostomy pending son's decision Start Zoloft for possible underlying depression. DVT Prophylaxis SCDs Palliative care following a meeting with children to establish goals. Extremely poor prognosis, however children desired aggressive treatment. Discharge Planning: Per infectious disease and clinical progression
[2018-07-22] MEDS: Dextrose 5% in Water Inj 1,000 ML IV.CONT SCH (17:08)
[2018-07-23] MEDS: Vancomycin Inj 1,000 MG in Sodium Chlor 0.9% Inj 250 ML IV.SIG SCH (05:13)
[2018-07-23 06:01] LABS: Eos # (Auto) 0.3 th/mm3 (0.0-0.4); Eos % (Auto) 8.1 % (0.0-4.0); Hemoglobin 8.8 gm/dL (11.6-15.3); Lymph # (Auto) 1.2 th/mm3 (1.0-4.8); Lymph % (Auto) 31.7 % (9.0-44.0); Mean Corpuscular HGB Conc 32.5 % (32.0-36.0); Mean Corpuscular Hemoglobin 26.4 pg (27.0-34.0); Mean Corpuscular Volume 81.2 fL (80.0-100.0); Mean Platelet Volume 9.2 fL (7.0-11.0); Mono # (Auto) 0.7 th/mm3 (0.0-0.9); Mono % (Auto) 17.4 % (0.0-8.0); Neut # (Auto) 1.6 th/mm3 (1.8-7.7); Neut % (Auto) 41.8 % (16.0-70.0); Platelet Count 210 th/mm3 (150-450); Red Blood Count 3.33 mil/mm3 (4.00-5.30); Red Cell Distribution Width 20.3 % (11.6-17.2); White Blood Count 3.8 th/mm3 (4.0-11.0)
[2018-07-23] MEDS: Sertraline 50 MG Tablet PO SCH (09:32)
[2018-07-23] MEDS: Lactobacillus Acidophilus/L. Spores Tablet G-TUBE SCH ×3 (09:32→18:24)
[2018-07-23] MEDS: BACITRACIN TOPICAL SCH ×2 (09:33→21:16)
[2018-07-23] MEDS: Insulin NovoLOG Aspart Correctional Sugar Inj SQ SCH ×4 (09:33→21:09)
[2018-07-23] MEDS: Dextrose 5% in Water Inj 1,000 ML IV.CONT SCH (09:33)
[2018-07-23] MEDS: POLYMYXIN TOPICAL SCH ×2 (09:33→21:16)
--- NOTE | 2018-07-23 11:32 | P.PNPAL ---
Palliative care continues to follow along with Ms. Miranda. Patient seen in her room, 1718. No family at bedside. Ms. Miranda is awake and alert. Remains nonverbal but appears to shake head appropriately to yes/no questions at times. Indicated she was cold, assisted with adjusting covers. No signs of discomfort or distress. Spoke with nurse, no return calls from son over the weekend. Spoke with Kelby Rodrigues NP with general surgery, no phone calls from son over the weekend. Medical team awaiting decisions regarding surgery. Palliative care will attempt to contact son and brother this afternoon as they are typically not available until after [phone] due to working schedule. Palliative care will continue to follow throughout hospitalization.
--- NOTE | 2018-07-23 17:43 | P.DIET ---
Nutritional Evaluation Type of nutrition evaluation: follow-up Nutrition consult regarding: Tube Feeding Nutrition screening: Pressure Injury Subjective Subjective Comments: Pt is non-verbal at baseline. Ht of 167.64cm used for assessment. Objective - Diagnosis Sepsis, Dehydration, Hypotension, C-Diff - Objective Body Mass Index: 22.5 [place] body weight: 59.1 kg % IBW: 87 (IBW = 110#) Body Weight Used for Calculations: Actual (51.3 kg) Energy Needs - Lower Range (kCal/kg): 30 Energy Needs - Upper Range (kCal/kg): 35 Lower Limit kCal/kg (kCals): 1,539 Upper Limit kCal/kg (kCals): 1,796 Lower Limit Protein Factor (Grams per Kg): 1.2 Upper Limit Protein Factor (Grams per Kg): 1.5 Lower Protein Needs (Protein): 62 Upper Protein Needs (Protein): 89 Dietitian Reviewed in Medical Record: Curent medications, Intake & Output, Labs , Medical history, Tube feeding, Wound/DTI Diet Order: TF'ing Glucerna 1.5 @ 55ml/hr Wound Care Note: WOCN dated 07/12 indicates a stage 4 coccyx pressure injury Objective Comments: PMH Includes: HTN, CVA w/residual hemiparesis/aphasia, s/p PEG tube placement, recent c-diff diagnosis POC Glucose 07/23 109, 124 Meds Include: Novolog, Lactinex, Zofran, Zoloft, free water flush 200cc Q 6-hr +UOP 1400ml, +stool Feeding - Current Tube Feeding Tube Feeding Product: Glucerna 1.5 Tube Feeding Rate: 55 Tube Feeding Route: gastrostomy Current kCals Provided by Tube Feedin,980 Current Protein Provided by Tube Feeding (gPRO): 109 Current Free H2O Provided (m/l): 1,002 Assessment Assessment: Pt remains at high nutrition risk r/t increased needs for wound healing and her dependence on TF'ing for nutritional needs. For continuous TF'ing w/ Glucerna 1.5, Rec a goal rate @ 50 mls/hr to offer 1800 kcal, 99g Protein and 911ml free water. Rec addition of Tyshawn 1 packet BID via PEG tube to aid in healing. Tyshawn is a targeted nutrition therapy that contains arginine and glutamine as well as CaHMB. Free Water Flushes per MD, as ordered. Wt changes noted. Dietitian following. Recommendations: 1. For continuous TF'ing w/Glucerna 1.5, Rec a goal rate @ 50 ml/hr 2. Rec addition of Tyshawn 1 packet BID via PEG tube to aid in healing 3. Free Water Flushes per MD as ordered 4. Dietitian following Dietitian to Monitor: Lab values, Intake & Output, Tube feeding tolerance, Weight change, Wound/skin status, Medical course
[2018-07-23] MEDS: hydrALAZINE 25 MG Tablet PO SCH (18:24)
--- NOTE | 2018-07-23 18:54 | P.PNIM ---
Subjective Interval history: No acute changes today. Patient sleeping, opens eyes to verbal stimulation. Physical Exam Vital signs: Vital Signs 07/22/18 20:00 07/23/18 00:46 07/23/18 08:00 Temperature 98.2 F 98.2 F 98.0 F Pulse Rate 88 83 78 Respiratory Rate 17 18 16 Blood Pressure 172/98 H 159/89 H 141/88 H Pulse Oximetry 100 100 100 07/23/18 12:00 07/23/18 16:00 Temperature 98.7 F 98.2 F Pulse Rate 86 80 Respiratory Rate 18 17 Blood Pressure 140/101 H 173/99 H Pulse Oximetry 97 100 Intake & Output 07/22/18 07/23/18 07/23/18 18:59 06:59 18:59 Intake Total 1200 / 1200 620 / 620 1100 / 1100 Output Total 725 / 725 1400 / 1400 800 / 800 Balance 475 / 475 -780 / -780 300 / 300 Weight 58 kg Intake: IV 1200 / 1200 100 / 100 1100 / 1100 D5W Inj 1,000 ML @ 60 mls/hr IV 1000 / 1000 1000 / 1000 .CONT .[id number] [facility] Rx#:[id number] Maxipime Inj 2,000 MG In NS Inj 200 / 200 100 / 100 100 / 100 100 ML @ 200 mls/hr IV.SIG Q8H [facility] Rx#:[id number] Oral 0 / 0 Tube Feeding 520 / 520 Output: Urine 725 / 725 800 / 800 Urine Amount (Catheter) 1400 / 1400 Indwelling Urethral Catheter 1400 / 1400 Other: # Bowel Movements 2 Narrative: GENERAL: sleeping, wakes up for exam. SKIN: Warm and dry. HEAD: Normocephalic. EYES: No scleral icterus. No injection or drainage. NECK: Supple, trachea midline. No JVD. CARDIOVASCULAR: Regular rate and rhythm without murmurs, gallops, or rubs. RESPIRATORY: Breath sounds equal bilaterally. No accessory muscle use. GASTROINTESTINAL: Abdomen soft, non-tender, nondistended. MUSCULOSKELETAL: No cyanosis, or edema. - Urinary Catheter Management Indwelling Urethral Catheter Cath placed during this visit: yes, but has since been removed by the nurse Reason for continuing: Severe pressure ulcer/wound Insertion date: 07/12/18 Insertion time: 01:00 Removal date: 07/12/18 Removal time: 12:50 Results - Labs CBC & Chem 7: 07/23/18 04:54 07/22/18 05:35 Laboratory Results - last 24 hr 07/22/18 07/23/18 07/23/18 19:33 04:54 07:07 WBC 3.8 L RBC 3.33 L Hgb 8.8 L Hct 27.0 L MCV 81.2 MCH 26.4 L MCHC 32.5 RDW 20.3 H Plt Count 210 MPV 9.2 Neut % (Auto) 41.8 Lymph % (Auto) 31.7 [place] % (Auto) 17.4 H Eos % (Auto) 8.1 H Baso % (Auto) 1.0 Neut # (Auto) 1.6 L Lymph # (Auto) 1.2 [place] # (Auto) 0.7 Eos # (Auto) 0.3 Baso # (Auto) 0.0 WBC Differential . Differential Comment Auto diff final POC Glucose 111 H 106 07/23/18 07/23/18 11:56 16:05 WBC RBC Hgb Hct MCV MCH MCHC RDW Plt Count MPV Neut % (Auto) Lymph % (Auto) [place] % (Auto) Eos % (Auto) Baso % (Auto) Neut # (Auto) Lymph # (Auto) [place] # (Auto) Eos # (Auto) Baso # (Auto) WBC Differential Differential Comment POC Glucose 109 124 H Assessment and Plan - Plan 63 year old female with a history of hemorrhagic CVA and severe chronic neurological deficit, admitted with diarrhea from C. Diff. 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 Discussed with Dr. Cruz who feels if family continues to want aggressive treatment will need a evaluation consult for a colostomy. For diverting colostomy with Dr. Monreal pending son's consent. At this time, son would want to discuss further with his uncle and will let us know final decision in the next few days. = Son will need to decide upon colostomy placement //Severe malnutritioncontinue with tube feeds //Hyponatremia Dehydration secondary to diarrhea These appears secondary to C. difficile colitis sodium levels continue to improve, will discontinue fluids. //C Diff Colitis Leukocytosis PEG p.o. vancomycin Isolation Follow for improvement //Dehydration AKIimproved Follow renal function Avoid nephrotoxins IV Hydration continued //Hypotension Treat dehydration //Hx of Hemorrhagic CVA Chronic severe neurological deficits Supportive Care //Chronic sacral ulcer Stage IV Wound care nurse following Wound care physician consulted, Dr. Morales performed bedside debridement of wound Patient would benefit from diverting colostomy pending son's decision Start Zoloft for possible underlying depression. //DVT Prophylaxis SCDs Palliative care following a meeting with children to establish goals. Extremely poor prognosis, however children desired aggressive treatment.
[2018-07-24] MEDS: Dextrose 5% in Water Inj 1,000 ML IV.CONT SCH ×2 (01:32→21:30)
[2018-07-24] MEDS: Vancomycin Inj 1,000 MG in Sodium Chlor 0.9% Inj 250 ML IV.SIG SCH (05:27)
[2018-07-24 05:34] LABS: Glomerular Filtration Rate Greater Than 89 mL/min (>89)
[2018-07-24] MEDS: Lactobacillus Acidophilus/L. Spores Tablet G-TUBE SCH ×3 (09:00→17:41)
[2018-07-24] MEDS: POLYMYXIN TOPICAL SCH ×2 (09:00→21:35)
[2018-07-24] MEDS: Sertraline 50 MG Tablet PO SCH (09:00)
[2018-07-24] MEDS: hydrALAZINE 25 MG Tablet PO SCH ×3 (09:00→17:41)
[2018-07-24] MEDS: BACITRACIN TOPICAL SCH ×2 (09:00→21:35)
[2018-07-24] MEDS: Insulin NovoLOG Aspart Correctional Sugar Inj SQ SCH ×4 (11:39→21:40)
--- NOTE | 2018-07-24 17:04 | P.PNIM ---
Subjective Interval history: Patient nonverbal as before. Physical Exam Vital signs: Vital Signs 07/23/18 20:00 07/24/18 00:00 07/24/18 08:00 Temperature 98.4 F 97.9 F 97.7 F Pulse Rate 60 81 78 Respiratory Rate 17 18 Blood Pressure 148/77 H 142/90 H 167/102 H Pulse Oximetry 98 100 100 07/24/18 12:00 07/24/18 16:00 Temperature 98.4 F 98.0 F Pulse Rate 86 105 H Respiratory Rate 17 18 Blood Pressure 148/75 H 176/100 H Pulse Oximetry 100 Intake & Output 07/23/18 07/24/18 07/24/18 18:59 06:59 18:59 Intake Total 1100 / 1100 1115 / 1115 100 / 100 Output Total 800 / 800 300 / 300 800 / 800 Balance 300 / 300 815 / 815 -700 / -700 Intake: IV 1100 / 1100 450 / 450 100 / 100 D5W Inj 1,000 ML @ 60 mls/hr IV 1000 / 1000 .CONT .[id number] SUN[facility] Rx#:[id number] Maxipime Inj 2,000 MG In NS Inj 100 / 100 200 / 200 100 / 100 100 ML @ 200 mls/hr IV.SIG Q8H [facility] Rx#:[id number] Vancomycin Inj 1,000 MG In NS 250 / 250 Inj 250 ML @ 250 mls/hr IV.SIG Q24H [facility]SHINE Rx#:[id number] Tube Feeding 605 / 605 Tube Irrigant 60 / 60 Output: Urine 800 / 800 800 / 800 Urine Amount (Catheter) 300 / 300 Indwelling Urethral Catheter 300 / 300 Narrative: GENERAL: sleeping, wakes up for exam. Exam unchanged from yesterday. SKIN: Warm and dry. HEAD: Normocephalic. EYES: No scleral icterus. No injection or drainage. NECK: Supple, trachea midline. No JVD. CARDIOVASCULAR: Regular rate and rhythm without murmurs, gallops, or rubs. RESPIRATORY: Breath sounds equal bilaterally. No accessory muscle use. GASTROINTESTINAL: Abdomen soft, non-tender, nondistended. MUSCULOSKELETAL: No cyanosis, or edema. - Urinary Catheter Management Indwelling Urethral Catheter Cath placed during this visit: yes, but has since been removed by the nurse Reason for continuing: Severe pressure ulcer/wound Insertion date: 07/12/18 Insertion time: 01:00 Removal date: 07/12/18 Removal time: 12:50 Results - Labs CBC & Chem 7: 07/23/18 04:54 07/24/18 04:48 Laboratory Results - last 24 hr 07/23/18 07/24/18 07/24/18 19:46 04:48 07:51 Creatinine 0.30 L Estimated GFR Greater than 89 POC Glucose 99 92 07/24/18 07/24/18 11:36 16:38 Creatinine Estimated GFR POC Glucose 97 132 H Assessment and Plan - Plan 63 year old female with a history of hemorrhagic CVA and severe chronic neurological deficit, admitted with diarrhea from C. Diff. 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 Discussed with Dr. Cruz who feels if family continues to want aggressive treatment will need a evaluation consult for a colostomy. For diverting colostomy with Dr. Monreal pending son's consent. At this time, son would want to discuss further with his uncle and will let us know final decision in the next few days. = Son will need to decide upon colostomy placement = 07/24. Discussed with case management, nursing. Son is to arrive today at 4 PM. //Severe malnutritioncontinue with tube feeds //Hyponatremia Dehydration secondary to diarrhea These appears secondary to C. difficile colitis sodium levels continue to improve, will discontinue fluids. //C Diff Colitis Leukocytosis PEG p.o. vancomycin Isolation Follow for improvement //Dehydration AKIimproved Follow renal function Avoid nephrotoxins IV Hydration continued //Hypotension Treat dehydration //Hx of Hemorrhagic CVA Chronic severe neurological deficits Supportive Care //Chronic sacral ulcer Stage IV Wound care nurse following Wound care physician consulted, Dr. Morales performed bedside debridement of wound Patient would benefit from diverting colostomy pending son's decision //Continue Zoloft for possible underlying depression. //DVT Prophylaxis SCDs Palliative care following a meeting with children to establish goals. Extremely poor prognosis, however children desired aggressive treatment. Discharge Planning: Continued inpatient care. Awaiting possible diverting colostomy for treatment of sacral ulcer.
[2018-07-25] MEDS ORDERED: Pharmacy Ordered Lab Info OTHER ONE (05:45)
[2018-07-25] MEDS: Vancomycin Inj 1,000 MG in Sodium Chlor 0.9% Inj 250 ML IV.SIG SCH ×2 (06:26→23:45)
[2018-07-25] MEDS: Insulin NovoLOG Aspart Correctional Sugar Inj SQ SCH ×4 (08:56→23:47)
[2018-07-25] MEDS: BACITRACIN TOPICAL SCH ×2 (09:01→20:31)
[2018-07-25] MEDS: POLYMYXIN TOPICAL SCH ×2 (09:01→20:31)
[2018-07-25] MEDS: hydrALAZINE 25 MG Tablet PO SCH ×3 (09:01→17:16)
[2018-07-25] MEDS: Sertraline 50 MG Tablet PO SCH (09:02)
[2018-07-25] MEDS: Lactobacillus Acidophilus/L. Spores Tablet G-TUBE SCH ×3 (09:03→17:15)
--- NOTE | 2018-07-25 12:04 | P.PNPAL ---
Reason for Visit Reason for visit: a. To assist with evaluation and management of symptoms including: pain, debility b. To assist medical decision maker(s) with: better understanding of current medical conditions; weighing benefits/burdens of medical treatment options; making medical treatment decisions. Subjective Subjective/Interval History: . Ms. Miranda is a 63 year [facility] resident who presented to [facility] ED on 07/06/18 for evaluation of hypotension (BP 72/58) and bandemia on outpatient labs. Patient had a lengthy hospitalization status post CVA in April,. She remained hospitalized until Mar, 2018 when she was discharged to a ID. After being evaluated in the ED, the patient was admitted for medical management of sepsis, C. difficile, dehydration and hypotension. On vancomycin and cefepime. Follow up visit for symptom management and clarification of medical treatment goals. Discussed patient with Hu (RN), Loni (BRUCE), ILENE Buckner and Dr. Cheema. Nursing reports no acute events over night. Clinical data: * Hemodynamically stable * Glucose: 97 * On 07/24/2018: Creatinine 0.30; GFR >89 * Blood cultures were positive for coag negative staph and MRSA as well as pseudomonas aeruginosa. Repeat blood cultures- negative * Wound cultures were positive for MRSA as well as pseudomonas aeruginosa. * Urine culture-growing Proteus mirabilis Patient's son, Henri, has expressed ongoing aggressive goals. General surgery was consulted to evaluate patient for diverting colostomy secondary to C. difficile and stage IV decubitus ulcer. Yuly Rodrigues APRN (genral surgery) spoke to the patient's son on Monday07/20/18 to discuss procedure and obtain consents. Henri wanted to discuss the decision with his uncle over the weekend; no decisions have been made thus far. If goals are to remain aggressive, the medical team is recommending diverting colostomy and possible wound debridement/wound VAC. Palliative care left a message for the patient's son this morning at 11:30 AM requesting a return phone call when he gets off of work late this afternoon. Family/Friend Interactions: See interval history Advance Directives Advance Directives Date on File: 07/12/18 Health Care Surrogate Name and Number: SonHenri, designated HCS. Daughter, Geri, is alternate HCS Documented care wishes:: No known documented care wishes have been completed Objective Vital Signs: Vital Signs 07/24/18 12:00 07/24/18 16:00 07/24/18 20:00 Temperature 98.4 F 98.0 F 97.8 F Pulse Rate 86 105 H 99 H Respiratory Rate 17 18 18 Blood Pressure 148/75 H 176/100 H 167/99 H Pulse Oximetry 100 99 07/25/18 00:00 07/25/18 08:00 Temperature 97.4 F L 97.4 F L Pulse Rate 87 97 H Respiratory Rate 18 19 Blood Pressure 139/87 152/93 H Pulse Oximetry 99 100 Intake & Output 07/24/18 07/25/18 07/25/18 18:59 06:59 18:59 Intake Total 1022 / 1022 880 / 880 250 / 250 Output Total 800 / 800 Balance 222 / 222 880 / 880 250 / 250 Intake: IV 200 / 200 100 / 100 250 / 250 Maxipime Inj 2,000 MG In NS Inj 200 / 200 100 / 100 100 ML @ 200 mls/hr IV.SIG Q8H [facility]INE Rx#:[id number] Vancomycin Inj 1,000 MG In NS 250 / 250 Inj 250 ML @ 250 mls/hr IV.SIG Q24H SUNSHINE Rx#:[id number] Tube Feeding 622 / 622 660 / 660 Tube Irrigant 200 / 200 120 / 120 Output: Urine 800 / 800 Physical Exam: CONSTITUTIONAL/GENERAL: This is a frail, debilitated female in no acute distress TUBES/LINES/DRAINS: Nasal cannula, PEG, PIV, Dignashield, Cruz SKIN: No jaundice, rashes, or lesions. PEG tube site without evidence of infection. Skin temperature appropriate. Not diaphoretic. HEAD: Atraumatic. Normocephalic. EYES: Pupils equal and round and reactive. Extraocular motions intact. No scleral icterus. No injection or drainage. Fundi not examined. ENT: Hearing grossly normal. Nose without bleeding or purulent drainage. NECK: Trachea midline. Supple, nontender. No palpable thyroid enlargement or nodularity. CARDIOVASCULAR: Regular rate and rhythm without murmurs, gallops, or rubs. No JVD. Peripheral pulses symmetric. RESPIRATORY/CHEST: Symmetric, unlabored respirations. Breath sounds diminished bilaterally. No wheezes, rales, or rhonchi. No accessory muscle use GASTROINTESTINAL: Abdomen soft, non-tender, nondistended. Tolerating artificial nutrition. No guarding. Bowel sounds present. GENITOURINARY: Without palpable bladder distension. MUSCULOSKELETAL: Extremities without clubbing, cyanosis, or edema. LYMPHATICS: No palpable cervical or supraclavicular adenopathy. NEUROLOGICAL: Opens her eyes spontaneously, tracks with her eyes. Does not respond to questions or follow commands. PSYCHIATRIC: No obvious anxiety/depression. No apparent hallucinations or other psychotic thought process. Diagnostic Tests Laboratory: Laboratory Results - last 72 hr 07/22/18 07/22/18 07/22/18 11:40 16:12 19:33 WBC RBC Hgb Hct MCV MCH MCHC RDW Plt Count MPV Neut % (Auto) Lymph % (Auto) [place] % (Auto) Eos % (Auto) Baso % (Auto) Neut # (Auto) Lymph # (Auto) [place] # (Auto) Eos # (Auto) Baso # (Auto) WBC Differential Differential Comment Creatinine Estimated GFR POC Glucose 111 H 93 111 H Vancomycin Trough 07/23/18 07/23/18 07/23/18 04:54 07:07 11:56 WBC 3.8 L RBC 3.33 L Hgb 8.8 L Hct 27.0 L MCV 81.2 MCH 26.4 L MCHC 32.5 RDW 20.3 H Plt Count 210 MPV 9.2 Neut % (Auto) 41.8 Lymph % (Auto) 31.7 [place] % (Auto) 17.4 H Eos % (Auto) 8.1 H Baso % (Auto) 1.0 Neut # (Auto) 1.6 L Lymph # (Auto) 1.2 [place] # (Auto) 0.7 Eos # (Auto) 0.3 Baso # (Auto) 0.0 WBC Differential . Differential Comment Auto diff final Creatinine Estimated GFR POC Glucose 106 109 Vancomycin Trough 07/23/18 07/23/18 07/24/18 16:05 19:46 04:48 WBC RBC Hgb Hct MCV MCH MCHC RDW Plt Count MPV Neut % (Auto) Lymph % (Auto) [place] % (Auto) Eos % (Auto) Baso % (Auto) Neut # (Auto) Lymph # (Auto) [place] # (Auto) Eos # (Auto) Baso # (Auto) WBC Differential Differential Comment Creatinine 0.30 L Estimated GFR Greater than 89 POC Glucose 124 H 99 Vancomycin Trough 07/24/18 07/24/18 07/24/18 07:51 11:36 16:38 WBC RBC Hgb Hct MCV MCH MCHC RDW Plt Count MPV Neut % (Auto) Lymph % (Auto) [place] % (Auto) Eos % (Auto) Baso % (Auto) Neut # (Auto) Lymph # (Auto) [place] # (Auto) Eos # (Auto) Baso # (Auto) WBC Differential Differential Comment Creatinine Estimated GFR POC Glucose 92 97 132 H Vancomycin Trough 07/24/18 07/25/18 07/25/18 21:40 06:20 07:59 WBC RBC Hgb Hct MCV MCH MCHC RDW Plt Count MPV Neut % (Auto) Lymph % (Auto) [place] % (Auto) Eos % (Auto) Baso % (Auto) Neut # (Auto) Lymph # (Auto) [place] # (Auto) Eos # (Auto) Baso # (Auto) WBC Differential Differential Comment Creatinine Estimated GFR POC Glucose 109 97 Vancomycin Trough 9.3 Result Diagrams: 07/23/18 04:54 07/26/18 05:27 Microbiology: Microbiology 07/11/18 18:48 Blood - Peripheral Aerobic Blood Culture - Final No growth in 5 days 07/11/18 18:48 Blood - Peripheral Anaerobic Blood Culture - Final No growth in 5 days 07/11/18 18:53 Blood - Peripheral Aerobic Blood Culture - Final No growth in 5 days 07/11/18 18:53 Blood - Peripheral Anaerobic Blood Culture - Final No growth in 5 days 07/10/18 15:40 Catheterized Urine Urine Culture - Final Proteus mirabilis 07/06/18 21:00 Blood - Peripheral Aerobic Blood Culture - Final Staphylococcus coag negative Pseudomonas aeruginosa 07/06/18 21:00 Blood - Peripheral Anaerobic Blood Culture - Final No growth in 5 days 07/06/18 20:30 Wound - Decubitis Gram Stain - Final 07/06/18 20:30 Wound - Decubitis Wound Culture - Final S. aureus MRSA Pseudomonas aeruginosa 07/06/18 21:05 Blood - Peripheral Aerobic Blood Culture - Final Staphylococcus coag negative 07/06/18 21:05 Blood - Peripheral Anaerobic Blood Culture - Final S. aureus MRSA 07/06/18 23:30 Catheterized Urine Urine Culture - Final 50-100,000 cfu/mL mixed isabel (probable contaminants ) Imaging: Chest X-Ray 07/06/18 20:33 CONCLUSION: No acute cardiopulmonary process. Assessment and Plan - Disease Oriented Problem List (1) History of CVA (cerebrovascular accident) Comment: Status post hemorrhagic CVA in 04/2017 Chronic neurological deficits (2) Urinary tract infection Comment: Urine culture + proteus mirabilis (3) Sepsis Comment: Initial blood cultures positive for coag negative staph, MRSA and pseudomonas aeruginosa Follow-up blood culture on 07/11/2018-negative On vancomycin and cefepime. Infectious disease following. (4) C. difficile diarrhea Comment: Contact isolation (5) Sacral wound Comment: Stage IV Wound culture growing MRSA and pseudomonas aeruginosa Wound care following. If goals remain aggressive, recommendations for diverting colostomy with possible debridement/wound VAC (6) Dehydration Comment: Following labs Pertinent Non-Medical Issues: Psychosocial: Patient was born in [place]. She has 5 brothers and 5 sisters. Her childhood was described as happy. Patient has a history of homelessness and has been arrested for trespassing. She graduated from high school, then went to trade school. 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 Patient was when she was 21 years old but was 3 years later. Patient had 2 sons and 1 daughter. Patient has noncompliance with her medical regimen. She was Brock acted in the past secondary to delusions, paranoia and visual/auditory hallucinations. Spiritual: Yarsanism latonya Legal: Son, Henri Birmingham, is designated as the healthcare surrogate decision maker. Daughter, Geri, is the alternate healthcare surrogate decision maker Ethical issues impacting care: No known ethical issues impacting care at this time. Important Contacts: Geri Wallace, daughter: [phone]. (This number no longer belongs to Geri ) Henri Birmingham, son: [phone] King Elsy, brother: [phone] Prognosis: Patient is a frail, cachectic jail resident status post CVA in April, with residual hemiparesis and aphasia. She is nonverbal and dependent for all care. She is now admitted with sepsis, C. difficile and a stage IV sacral decubitus wound. Patient's condition is guarded. She is at risk for deterioration if the source of infection cannot be controlled. Code Status: Full Code Plan: * FULL CODE * Decision making: Patient is unable to participate in establishment of medical treatment goals s/p CVA with residual hemiparesis and aphasia. She designated her son, Henri Birmingham, as her health care surrogate decision maker. Daughter, Aleena Wallace, is the alternate health care surrogate. * Phone call to son, Henri, this morning at 1130. Message left with Palliative Care contact information requesting a return phone call this afternoon to discuss medical treatment goals moving forward, specifically decision on diverting colostomy. * If goals are going to remain aggressive, wound care has recommended diverting colostomy, possible wound debridement and wound VAC * General surgery was consulted to evaluate patient for diverting colostomy secondary to C. difficile and stage IV decubitus ulcer; Yuly Shi APRN spoke with the patient's son (Henri) on Monday07/20/18. Henri wanted to discuss decision with his uncle over the weekend before making a decision. No decision has been made thus far. * Discussed patient with Hu (RN), Loni (CM), ILENE Buckner and Dr. Cheema * Symptom management: == Debility: Patient has resided in a NH status post CVA in 04/2017 with residual hemiparesis and aphasia. She is dependent for all care. She is able to track with her eyes. Flat affect. Extremities are contracted. Dietitian recommending Tyshawn 1 pack BID via PEG to aid in healing. == Pain: Likely sources of pain are bedbound status, invasive lines, large tunneled sacral wound, sepsis, C. difficile infection, contractures. Patient was receiving tramadol 50 mg 2 times daily prior to admission. Monitor for signs and symptoms of nonverbal pain such as grimacing and moaning. May want to consider restarting tramadol if indicated. * Palliative care will continue to follow this patient throughout her hospitalization to establish stress, assist with symptom management and clarification of medical treatment goals. Attestation Attestation: To help prompt me to consider important information that might be impacting today's encounter and assessment, information from prior notes written by myself or my colleagues may have been "brought forward" into today's note. My signature on this note, however, is an attestation that I personally performed the exam, history, and/or decision-making noted today, and, unless otherwise indicated, the interactions with patient, family, and staff as well as the review of records all occurred today. I also attest that the listed assessment and stated plan reflect my best clinical judgment today based on the combination of historical information, prior notes, and today's exam/ interactions. When time spent is documented, it refers only to time spent today by the signer, or if indicated, combined time spent today by collaborating physician/nurse practitioner.
--- NOTE | 2018-07-25 12:34 | P.PNIM ---
Subjective Interval history: Patient nonverbal as before. No changes per nursing. Physical Exam Vital signs: Vital Signs 07/24/18 16:00 07/24/18 20:00 07/25/18 00:00 Temperature 98.0 F 97.8 F 97.4 F L Pulse Rate 105 H 99 H 87 Respiratory Rate 18 18 18 Blood Pressure 176/100 H 167/99 H 139/87 Pulse Oximetry 99 99 07/25/18 08:00 Temperature 97.4 F L Pulse Rate 97 H Respiratory Rate 19 Blood Pressure 152/93 H Pulse Oximetry 100 Intake & Output 07/24/18 07/25/18 07/25/18 18:59 06:59 18:59 Intake Total 1022 / 1022 880 / 880 250 / 250 Output Total 800 / 800 Balance 222 / 222 880 / 880 250 / 250 Intake: IV 200 / 200 100 / 100 250 / 250 Maxipime Inj 2,000 MG In NS Inj 200 / 200 100 / 100 100 ML @ 200 mls/hr IV.SIG Q8H [facility]SHINE Rx#:[id number] Vancomycin Inj 1,000 MG In NS 250 / 250 Inj 250 ML @ 250 mls/hr IV.SIG Q24H SUNSHINE Rx#:[id number] Tube Feeding 622 / 622 660 / 660 Tube Irrigant 200 / 200 120 / 120 Output: Urine 800 / 800 Narrative: GENERAL: sleeping, wakes up for exam. Makes good eye contact as before. Exam unchanged from yesterday. SKIN: Warm and dry. HEAD: Normocephalic. EYES: No scleral icterus. No injection or drainage. NECK: Supple, trachea midline. No JVD. CARDIOVASCULAR: Regular rate and rhythm without murmurs, gallops, or rubs. RESPIRATORY: Breath sounds equal bilaterally. No accessory muscle use. GASTROINTESTINAL: Abdomen soft, non-tender, nondistended. MUSCULOSKELETAL: No cyanosis, or edema. - Urinary Catheter Management Indwelling Urethral Catheter Cath placed during this visit: yes, but has since been removed by the nurse Reason for continuing: Severe pressure ulcer/wound Insertion date: 07/12/18 Insertion time: 01:00 Removal date: 07/12/18 Removal time: 12:50 Results - Labs CBC & Chem 7: 07/23/18 04:54 07/24/18 04:48 Laboratory Results - last 24 hr 07/24/18 07/24/1807/25/18 16:38 21:40 06:20 POC Glucose 132 H 109 Vancomycin Trough 9.3 07/25/18 07/25/18 07:59 11:54 POC Glucose 97 111 H Vancomycin Trough Assessment and Plan - Plan 63 year old female with a history of hemorrhagic CVA and severe chronic neurological deficit, admitted with diarrhea from C. Diff. //Sepsis //Pseudomonas bacteremia and MRSA bacteremia //Proteus catheter related urinary tract infection prehospital + Blood cultures, started on IV vancomycin and cefepime -ID consulted, greatly appreciate assistance and recommendations -Likely source of sepsis is stage IV coccyx ulcer -Final ID recommendations for antibiotic pending final repeat blood cultures are negative. Discussed with Dr. Cruz who feels if family continues to want aggressive treatment will need a evaluation consult for a colostomy. For diverting colostomy with Dr. Monreal pending son's consent. At this time, son would want to discuss further with his uncle and will let us know final decision in the next few days. = Son will need to decide upon colostomy placement = 07/24. Discussed with case management, nursing. Son is to arrive today at 4 PM. = 07/25. Discussed with son yesterday who is not sure whether to go ahead with diverting colostomy or not. Palliative care and surgical/wound care assistance appreciated. Discussed with infectious disease today he will work on placing final recommendations for IV antibiotics . //Severe malnutritioncontinue with tube feeds //Hyponatremia Dehydration secondary to diarrhea These appears secondary to C. difficile colitis sodium levels continue to improve, will discontinue fluids. //C Diff Colitis Leukocytosis PEG p.o. vancomycin Isolation Follow for improvement = 07/25. Discussed with infectious disease who will place final recommendations. //Dehydration AKIimproved Follow renal function Avoid nephrotoxins IV Hydration continued //Hypotension Treat dehydration //Hx of Hemorrhagic CVA Chronic severe neurological deficits Supportive Care //Chronic sacral ulcer Stage IV Wound care nurse following Wound care physician consulted, Dr. Morales performed bedside debridement of wound Patient would benefit from diverting colostomy pending son's decision //Continue Zoloft for possible underlying depression. //DVT Prophylaxis SCDs Palliative care following a meeting with children to establish goals. Extremely poor prognosis, however children desired aggressive treatment. Discharge Planning: Continued inpatient care. Awaiting possible diverting colostomy for treatment of sacral ulcer. Will need infectious disease final recommendations for continuing antibiotics.
--- NOTE | 2018-07-25 14:06 | P.PNID ---
Subjective Remarks: Ms. Miranda is a 63-year-old -Tajik female with past medical history of hypertension, CVA with residual hemiparesis as well as aphasia as well as history of C. difficile who presents to the emergency room from a nursing home facility due to hypotension with a blood pressure of 72/58. Patient also had bandemia as well as elevated white count on outpatient labs. Patient is unable to provide any history as she is nonverbal from her baseline aphasia. Per records patient was diagnosed with C. difficile on July 06, 2018 and started on Flagyl but due to worsening hypotension and concern for sepsis she was admitted to the hospital. On arrival her blood pressure was 85/59, heart rate 94, O2 sats 98% on room air and she was afebrile. Her creatinine is 1.46 previously 0.45 on March 20, 2018. Her lactic acid was elevated 2.3. Her WBC was normal however she had significant bandemia of 29% her UA was positive and cultures show gram-negative rods. Blood cultures done on admission are positive for coag negative staph, MRSA as well as pseudomonas aeruginosa. Sacral decubitus wound is also positive for MRSA as well as pseudomonas aeruginosa. Patient received a dose of Cipro and Flagyl in the emergency room. Infectious diseases consulted for evaluation and management of sepsis, gram- positive bacteremia, gram-negative bacteremia, gram-negative UTI, possibly infected sacral decubitus wound, C. difficile flare. At the time of my evaluation patient is on a regular floor in room 1718. Patient's bedside nurse informs me that she is nonverbal minimally tracks with her eye but otherwise just lays in bed with no emotional response either. Patient has a Flexi-Seal bag due to ongoing diarrhea. She also has a sacral decubitus wound which appears to be tunneled down to the bone. 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 But overall the wound base does not appear to be fairly light red and beefy. No obvious discharge noted. Patient also has a PEG tube in place with no obvious evidence of infection. She appears to be tolerating her tube feeds based on my discussion with the nurse. Patient has chronic contractors of her extremities and has to be turned frequently Overnight events reviewed. No fever No rash Diarrhea Opens eyes, Nods yes no to questions appropriately. Flat affect. Antibiotics: Cefepime IV Vanco IV Vanco oral Lines: Lines ok Past Medical History: reviewed Allergies/Adverse Reactions: Allergies No Known Allergies Allergy (Verified 07/06/18 20:47) Objective Vital Signs 07/24/18 16:00 07/24/18 20:00 07/25/18 00:00 Temperature 98.0 F 97.8 F 97.4 F L Pulse Rate 105 H 99 H 87 Respiratory Rate 18 18 18 Blood Pressure 176/100 H 167/99 H 139/87 Pulse Oximetry 99 99 07/25/18 08:00 07/25/18 12:00 Temperature 97.4 F L 98.6 F Pulse Rate 97 H 93 H Respiratory Rate 19 20 Blood Pressure 152/93 H 137/100 H Pulse Oximetry 100 98 Intake & Output 07/24/18 07/25/18 07/25/18 18:59 06:59 18:59 Intake Total 1022 / 1022 880 / 880 350 / 350 Output Total 800 / 800 Balance 222 / 222 880 / 880 350 / 350 Intake: IV 200 / 200 100 / 100 350 / 350 Maxipime Inj 2,000 MG In NS Inj 200 / 200 100 / 100 100 / 100 100 ML @ 200 mls/hr IV.SIG Q8H [facility] Rx#:[id number] Vancomycin Inj 1,000 MG In NS 250 / 250 Inj 250 ML @ 250 mls/hr IV.SIG Q24H [facility] Rx#:[id number] Tube Feeding 622 / 622 660 / 660 Tube Irrigant 200 / 200 120 / 120 Output: Urine 800 / 800 Lab - Chemistry Results 07/23/18 07/23/18 07/24/18 16:05 19:46 04:48 Creatinine 0.30 L Estimated GFR Greater than 89 POC Glucose 124 H 99 07/24/18 07/24/18 07/24/18 07:51 11:36 16:38 Creatinine Estimated GFR POC Glucose 92 97 132 H 07/24/18 07/25/18 07/25/18 21:40 07:59 11:54 Creatinine Estimated GFR POC Glucose 109 97 111 H Imaging: ITS Impressions Chest X-Ray 07/06/18 20:33 CONCLUSION: No acute cardiopulmonary process. Physical Exam: GENERAL: Thin built, cachectic appearing, chronically ill-appearing female patient SKIN: Cool and dry, no generalized rash HEAD: Atraumatic. Normocephalic. No temporal or scalp tenderness. EYES: Pupils equal round and reactive. Scleral icterus. No injection or drainage. No petechia ENT: Gross examination nothing abnormal detected NECK: Trachea midline. Supple, nontender, no meningeal signs. CARDIOVASCULAR: HS audible. RESPIRATORY: Clear to auscultation bilaterally. GASTROINTESTINAL: Abdomen soft nontender. PEG tube site okay. MUSCULOSKELETAL: Extremities with contractures noted. NEUROLOGICAL: Opens her eyes spontaneously, tracks with her eyes. No emotions on her face. Sacral decubitus appears to be tunneling down to the bone. Ulcer base appears to be red and beefy with no obvious purulence noted. No surrounding erythema noted. The patient is dark skin. Psych difficult to assess. IV line sites ok. Assessment and Plan - Plan Possible sepsis present on admission patient is extremely hypoalbuminemic and malnourished may not mount typical SIRS response. Has significant bandemia and lactic acidosis. Pseudomonas aeruginosa bacteremia MRSA bacteremia Coag negative staph bacteremia Gram-negative UTI has a Cruz in place.? Catheter associated UTI with catheter likely present on admission. Sacral decubitus ulcer with tunneling likely osteomyelitis could be a possible source of infection. C. difficile infection with ongoing large-volume diarrhea Recommendations Continue cefepime IV Continue vancomycin IV target trough 15-20 Continue oral vancomycin for C. difficile Add Asacol for post infectious Inflammatory component. Follow blood cultures Patient appreciate palliative care input discussed case with them. Patient reportedly has a son who is very involved in prior admissions. Follow cultures Follow clinical course Discussed with LINSEY Ngo
[2018-07-25] MEDS: Dextrose 5% in Water Inj 1,000 ML IV.CONT SCH ×3 (17:09→23:46)
[2018-07-25] MEDS: Mesalamine 800 MG Tablet DR PO SCH (17:16)
[2018-07-26] MEDS: Dextrose 5% in Water Inj 1,000 ML IV.CONT SCH ×2 (03:23→22:15)
[2018-07-26 07:42] LABS: Glomerular Filtration Rate Greater Than 89 mL/min (>89)
--- NOTE | 2018-07-26 09:19 | P.PNIM ---
Subjective Interval history: Patient nonverbal as before. No change on exam. Physical Exam Vital signs: Vital Signs 07/25/18 12:00 07/25/18 20:00 07/26/18 00:00 Temperature 98.6 F 97.2 F L 98.8 F Pulse Rate 93 H 113 H 106 H Respiratory Rate 20 20 20 Blood Pressure 137/100 H 170/81 H 174/105 H Pulse Oximetry 98 98 100 07/26/18 08:00 Temperature 98.2 F Pulse Rate 95 H Respiratory Rate 17 Blood Pressure 155/86 H Pulse Oximetry 100 Intake & Output 07/25/18 07/26/18 07/26/18 18:59 06:59 18:59 Intake Total 450 / 450 2655 / 2655 Balance 450 / 450 2655 / 2655 Intake: IV 450 / 450 1350 / 1350 D5W Inj 1,000 ML @ 60 mls/hr IV 1000 / 1000 .CONT .[id number] [facility] Rx#:[id number] Maxipime Inj 2,000 MG In NS Inj 200 / 200 100 / 100 100 ML @ 200 mls/hr IV.SIG Q8H [facility] Rx#:[id number] Vancomycin Inj 1,000 MG In NS 250 / 250 250 / 250 Inj 250 ML @ 250 mls/hr IV.SIG Q18H [facility] Rx#:[id number] Tube Feeding 1305 / 1305 Other: Date of Last Bowel Movement 07/25/18 Narrative: GENERAL: sleeping, wakes up for exam. Makes good eye contact as before. Exam unchanged. SKIN: Warm and dry. HEAD: Normocephalic. EYES: No scleral icterus. No injection or drainage. NECK: Supple, trachea midline. No JVD. CARDIOVASCULAR: Regular rate and rhythm without murmurs, gallops, or rubs. RESPIRATORY: Breath sounds equal bilaterally. No accessory muscle use. GASTROINTESTINAL: Abdomen soft, non-tender, nondistended. MUSCULOSKELETAL: No cyanosis, or edema. - Urinary Catheter Management Indwelling Urethral Catheter Cath placed during this visit: yes, but has since been removed by the nurse Reason for continuing: Severe pressure ulcer/wound Insertion date: 07/12/18 Insertion time: 01:00 Removal date: 07/12/18 Removal time: 12:50 Results - Labs CBC & Chem 7: 07/23/18 04:54 07/26/18 05:27 Laboratory Results - last 24 hr 07/25/18 07/25/18 07/25/18 11:54 16:10 23:46 Creatinine Estimated GFR POC Glucose 111 H 94 117 H 07/26/18 07/26/18 05:27 07:59 Creatinine 0.27 L Estimated GFR Greater than 89 POC Glucose 100 Assessment and Plan - Plan 63 year old female with a history of hemorrhagic CVA and severe chronic neurological deficit, admitted with diarrhea from C. Diff. //Sepsis //Pseudomonas bacteremia and MRSA bacteremia //Proteus catheter related urinary tract infection prehospital + Blood cultures, started on IV vancomycin and cefepime -ID consulted, greatly appreciate assistance and recommendations -Likely source of sepsis is stage IV coccyx ulcer -Final ID recommendations for antibiotic pending final repeat blood cultures are negative. Discussed with Dr. Cruz who feels if family continues to want aggressive treatment will need a evaluation consult for a colostomy. For diverting colostomy with Dr. Monreal pending son's consent. At this time, son would want to discuss further with his uncle and will let us know final decision in the next few days. = Son will need to decide upon colostomy placement = 07/24. Discussed with case management, nursing. Son is to arrive today at 4 PM. = 07/25. Discussed with son yesterday who is not sure whether to go ahead with diverting colostomy or not. Palliative care and surgical/wound care assistance appreciated. Discussed with infectious disease today he will work on placing final recommendations for IV antibiotics . = 07/26. Son to discuss possible colostomy with wound care. Appreciate nursing and wound care assistance. If son agrees with colostomy, will consult plastic surgery. //Severe malnutritioncontinue with tube feeds //Hyponatremia Dehydration secondary to diarrhea These appears secondary to C. difficile colitis sodium levels continue to improve, will discontinue fluids. //C Diff Colitis Leukocytosis PEG p.o. vancomycin Isolation Follow for improvement = 07/25. Discussed with infectious disease who will place final recommendations. = 07/26. Discussed with infectious disease yesterday. Patient still with loose stools. Infectious disease has ordered mesalamine to help with postinfectious inflammatory component. Appreciate assistance. //Dehydration AKIimproved Follow renal function Avoid nephrotoxins IV Hydration continued //Hypotension Treat dehydration //Hx of Hemorrhagic CVA Chronic severe neurological deficits Supportive Care //Chronic sacral ulcer Stage IV Wound care nurse following Wound care physician consulted, Dr. Morales performed bedside debridement of wound Patient would benefit from diverting colostomy pending son's decision //Continue Zoloft for possible underlying depression. //DVT Prophylaxis SCDs Palliative care following a meeting with children to establish goals. Extremely poor prognosis, however children desired aggressive treatment. Discharge Planning: Continued inpatient care. Awaiting possible diverting colostomy for treatment of sacral ulcer. Will need infectious disease final recommendations for continuing antibiotics.
[2018-07-26] MEDS: Sertraline 50 MG Tablet PO SCH (09:33)
[2018-07-26] MEDS: Lactobacillus Acidophilus/L. Spores Tablet G-TUBE SCH ×3 (09:33→17:53)
[2018-07-26] MEDS: Insulin NovoLOG Aspart Correctional Sugar Inj SQ SCH ×4 (09:33→22:15)
[2018-07-26] MEDS: Mesalamine 800 MG Tablet DR PO SCH ×3 (09:33→17:53)
[2018-07-26] MEDS: hydrALAZINE 25 MG Tablet PO SCH ×3 (09:33→17:53)
[2018-07-26] MEDS: BACITRACIN TOPICAL SCH ×2 (09:34→22:00)
[2018-07-26] MEDS: POLYMYXIN TOPICAL SCH ×2 (09:34→22:00)
--- NOTE | 2018-07-26 17:04 | P.PNPAL ---
Reason for Visit Reason for visit: a. To assist with evaluation and management of symptoms including: pain, debility b. To assist medical decision maker(s) with: better understanding of current medical conditions; weighing benefits/burdens of medical treatment options; making medical treatment decisions. Subjective Subjective/Interval History: . Ms. Miranda is a 63 year [facility] resident who presented to [place] ED on 07/06/18 for evaluation of hypotension (BP 72/58) and bandemia on outpatient labs. Patient had a lengthy hospitalization status post CVA in April,. She remained hospitalized until Mar, 2018 when she was discharged to a [facility]. After being evaluated in the ED, the patient was admitted for medical management of sepsis, C. difficile, dehydration and hypotension. On vancomycin and cefepime. Follow up visit for symptom management and clarification of medical treatment goals. Discussed patient with Genoveva(RN)and ILENE Buckner. Nursing reports no acute events over night. Clinical data: * Hemodynamically stable * Glucose: 102. No other recent lab work available * Blood cultures were positive for coag negative staph and MRSA as well as pseudomonas aeruginosa. Repeat blood cultures- negative * Wound cultures were positive for MRSA as well as pseudomonas aeruginosa. * Urine culture-growing Proteus mirabilis Patient's son, Henri, has expressed ongoing aggressive goals. General surgery was consulted to evaluate patient for diverting colostomy secondary to C. difficile and stage IV decubitus ulcer. Yuly Rodrigues APRN (genral surgery) spoke to the patient's son on Monday07/20/18 to discuss procedure and obtain consents. Henri wanted to discuss the decision with his uncle over the weekend; no decisions have been made thus far. If goals are to remain aggressive, the medical team is recommending diverting colostomy and possible wound debridement/wound VAC. Message left for patient's son on 07/25/2018 with palliative care contact information; no return phone call received. Message left for patient's brother (King Elsy) with palliative care contact information; no return phone call received at this time. Advance Directives Advance Directives Date on File: 07/12/18 Health Care Surrogate Name and Number: Son, Henri Birmingham, designated HCS. Daughter, Geri, is alternate HCS Documented care wishes:: No known documented care wishes have been completed Objective Vital Signs: Vital Signs 07/25/18 20:00 07/26/18 00:00 07/26/18 08:00 Temperature 97.2 F L 98.8 F 98.2 F Pulse Rate 113 H 106 H 95 H Respiratory Rate 20 20 17 Blood Pressure 170/81 H 174/105 H 155/86 H Pulse Oximetry 98 100 100 07/26/18 12:00 Temperature 97.9 F Pulse Rate 93 H Respiratory Rate 17 Blood Pressure 137/79 Pulse Oximetry 99 Intake & Output 07/25/18 07/26/18 07/26/18 18:59 06:59 18:59 Intake Total 450 / 450 2655 / 2655 100 / 100 Balance 450 / 450 2655 / 2655 100 / 100 Intake: IV 450 / 450 1350 / 1350 100 / 100 D5W Inj 1,000 ML @ 60 mls/hr IV 1000 / 1000 .CONT .[id number] [facility] Rx#:[id number] Maxipime Inj 2,000 MG In NS Inj 200 / 200 100 / 100 100 / 100 100 ML @ 200 mls/hr IV.SIG Q8H [facility] Rx#:[id number] Vancomycin Inj 1,000 MG In NS 250 / 250 250 / 250 Inj 250 ML @ 250 mls/hr IV.SIG Q18H [facility] Rx#:[id number] Tube Feeding 1305 / 1305 Other: Date of Last Bowel Movement 07/25/18 Physical Exam: CONSTITUTIONAL/GENERAL: This is a frail, debilitated female in no acute distress TUBES/LINES/DRAINS: Nasal cannula, PEG, PIV, Dignashield, Cruz SKIN: No jaundice, rashes, or lesions. PEG tube site without evidence of infection. Skin temperature appropriate. Not diaphoretic. HEAD: Atraumatic. Normocephalic. EYES: Pupils equal and round and reactive. Extraocular motions intact. No scleral icterus. No injection or drainage. Fundi not examined. ENT: Hearing appears grossly normal. Nose without bleeding or purulent drainage. NECK: Trachea midline. Supple, nontender. No palpable thyroid enlargement or nodularity. CARDIOVASCULAR: Regular rate and rhythm. + Murmur. No JVD. Peripheral pulses symmetric. RESPIRATORY/CHEST: Symmetric, unlabored respirations. Breath sounds diminished bilaterally. No wheezes, rales, or rhonchi. No accessory muscle use GASTROINTESTINAL: Abdomen soft, non-tender, nondistended. Tolerating artificial nutrition. No guarding. Bowel sounds present. GENITOURINARY: Without palpable bladder distension. MUSCULOSKELETAL: Extremities without clubbing, cyanosis, or edema. LYMPHATICS: No palpable cervical or supraclavicular adenopathy. NEUROLOGICAL: Opens her eyes spontaneously, tracks with her eyes. Does not respond to questions or follow commands. PSYCHIATRIC: No obvious anxiety/depression. No apparent hallucinations or other psychotic thought process. Diagnostic Tests Laboratory: Laboratory Results - last 72 hr 07/23/18 07/24/18 07/24/18 19:46 04:48 07:51 Creatinine 0.30 L Estimated GFR Greater than 89 POC Glucose 99 92 Vancomycin Trough 07/24/18 07/24/18 07/24/18 11:36 16:38 21:40 Creatinine Estimated GFR POC Glucose 97 132 H 109 Vancomycin Trough 07/25/18 07/25/18 07/25/18 06:20 07:59 11:54 Creatinine Estimated GFR POC Glucose 97 111 H Vancomycin Trough 9.3 07/25/18 07/25/18 07/26/18 16:10 23:46 05:27 Creatinine 0.27 L Estimated GFR Greater than 89 POC Glucose 94 117 H Vancomycin Trough 07/26/18 07/26/18 07:59 11:59 Creatinine Estimated GFR POC Glucose 100 102 Vancomycin Trough Result Diagrams: 07/23/18 04:54 07/26/18 05:27 Microbiology: Microbiology 07/11/18 18:48 Blood - Peripheral Aerobic Blood Culture - Final No growth in 5 days 07/11/18 18:48 Blood - Peripheral Anaerobic Blood Culture - Final No growth in 5 days 07/11/18 18:53 Blood - Peripheral Aerobic Blood Culture - Final No growth in 5 days 07/11/18 18:53 Blood - Peripheral Anaerobic Blood Culture - Final No growth in 5 days 07/10/18 15:40 Catheterized Urine Urine Culture - Final Proteus mirabilis 07/06/18 21:00 Blood - Peripheral Aerobic Blood Culture - Final Staphylococcus coag negative Pseudomonas aeruginosa 07/06/18 21:00 Blood - Peripheral Anaerobic Blood Culture - Final No growth in 5 days 07/06/18 20:30 Wound - Decubitis Gram Stain - Final 07/06/18 20:30 Wound - Decubitis Wound Culture - Final S. aureus MRSA Pseudomonas aeruginosa 07/06/18 21:05 Blood - Peripheral Aerobic Blood Culture - Final Staphylococcus coag negative 07/06/18 21:05 Blood - Peripheral Anaerobic Blood Culture - Final S. aureus MRSA 07/06/18 23:30 Catheterized Urine Urine Culture - Final 50-100,000 cfu/mL mixed isabel (probable contaminants ) Imaging: Chest X-Ray 07/06/18 20:33 CONCLUSION: No acute cardiopulmonary process. Assessment and Plan - Disease Oriented Problem List (1) History of CVA (cerebrovascular accident) Comment: Status post hemorrhagic CVA in 04/2017 Chronic neurological deficits (2) Urinary tract infection Comment: Urine culture + proteus mirabilis (3) Sepsis Comment: Initial blood cultures positive for coag negative staph, MRSA and pseudomonas aeruginosa Follow-up blood culture on 07/11/2018-negative On vancomycin and cefepime. Infectious disease following. (4) C. difficile diarrhea Comment: Contact isolation (5) Sacral wound Comment: Stage IV Wound culture growing MRSA and pseudomonas aeruginosa Wound care following. If goals remain aggressive, recommendations for diverting colostomy with possible debridement/wound VAC (6) Dehydration Comment: Following labs Pertinent Non-Medical Issues: Psychosocial: Patient was born in [place]. She has 5 brothers and 5 sisters. Her childhood was described as happy. Patient has a history of homelessness and has been arrested for trespassing. She graduated from high school, then went to trade school. 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 Patient was when she was 21 years old but was 3 years later. Patient had 2 sons and 1 daughter. Patient has noncompliance with her medical regimen. She was Brock acted in the past secondary to delusions, paranoia and visual/auditory hallucinations. Spiritual: Protestant latonya Legal: Son, Henri Birmingham, is designated as the healthcare surrogate decision maker. Daughter, Geri, is the alternate healthcare surrogate decision maker Ethical issues impacting care: No known ethical issues impacting care at this time. Important Contacts: Geri Wallace, daughter: [phone]. (This number no longer belongs to Geri ) Henri Birmingham, son: [phone] King Elsy, brother: [phone] Prognosis: Patient is a frail, cachectic assisted resident status post CVA in April, with residual hemiparesis and aphasia. She is nonverbal and dependent for all care. She is now admitted with sepsis, C. difficile and a stage IV sacral decubitus wound. Patient's condition is guarded. She is at risk for deterioration if the source of infection cannot be controlled. Code Status: Full Code Plan: * FULL CODE * Decision making: Patient is unable to participate in establishment of medical treatment goals s/p CVA with residual hemiparesis and aphasia. She designated her son, Henri Birmingham, as her health care surrogate decision maker. Daughter, Aleena Wallace, is the alternate health care surrogate. * Message left for patient's son yesterday on 07/25/2018. Phone call placed to patient's brother today 07/26/2018. Palliative care contact information was provided to both son and brother. Unfortunately, we have not received any return phone calls at this point in time * If goals are going to remain aggressive, wound care has recommended diverting colostomy, possible wound debridement and wound VAC * General surgery was consulted to evaluate patient for diverting colostomy secondary to C. difficile and stage IV decubitus ulcer; Yuly Shi APRN spoke with the patient's son (Henri) on Monday07/20/18. Henri wanted to discuss decision with his uncle over the weekend before making a decision. No decision has been made thus far. * Discussed patient with Genoveva (RN) and ILENE Buckner * Symptom management: == Debility: Patient has resided in a NH status post CVA in 04/2017 with residual hemiparesis and aphasia. She is dependent for all care. She is able to track with her eyes. Flat affect. Extremities are contracted. Dietitian recommending Tyshawn 1 pack BID via PEG to aid in healing. == Pain: Likely sources of pain are bedbound status, invasive lines, large tunneled sacral wound, sepsis, C. difficile infection, contractures. Patient was receiving tramadol 50 mg 2 times daily prior to admission. Monitor for signs and symptoms of nonverbal pain such as grimacing and moaning. I would suspect patient is experiencing pain during dressing changes; may want to consider restarting tramadol. * Palliative care will continue to follow this patient throughout her hospitalization to establish stress, assist with symptom management and clarification of medical treatment goals. Attestation Attestation: To help prompt me to consider important information that might be impacting today's encounter and assessment, information from prior notes written by myself or my colleagues may have been "brought forward" into today's note. My signature on this note, however, is an attestation that I personally performed the exam, history, and/or decision-making noted today, and, unless otherwise indicated, the interactions with patient, family, and staff as well as the review of records all occurred today. I also attest that the listed assessment and stated plan reflect my best clinical judgment today based on the combination of historical information, prior notes, and today's exam/ interactions. When time spent is documented, it refers only to time spent today by the signer, or if indicated, combined time spent today by collaborating physician/nurse practitioner.
[2018-07-26] MEDS: Vancomycin Inj 1,000 MG in Sodium Chlor 0.9% Inj 250 ML IV.SIG SCH (17:54)
[2018-07-27] MEDS: Insulin NovoLOG Aspart Correctional Sugar Inj SQ SCH ×4 (08:53→23:06)
[2018-07-27] MEDS: Sertraline 50 MG Tablet PO SCH (08:54)
[2018-07-27] MEDS: Lactobacillus Acidophilus/L. Spores Tablet G-TUBE SCH ×3 (08:54→18:51)
[2018-07-27] MEDS: BACITRACIN TOPICAL SCH ×2 (08:55→23:03)
[2018-07-27] MEDS: POLYMYXIN TOPICAL SCH ×2 (08:55→23:03)
[2018-07-27] MEDS: hydrALAZINE 25 MG Tablet PO SCH ×3 (08:56→18:52)
[2018-07-27] MEDS: Mesalamine 800 MG Tablet DR PO SCH ×3 (09:04→18:51)
[2018-07-27] MEDS: Dextrose 5% in Water Inj 1,000 ML IV.CONT SCH ×2 (09:13→12:29)
--- NOTE | 2018-07-27 10:38 | P.PNPAL ---
Palliative care was able to speak with patient's brother at an alternate number found in review of records ([phone]). reports he is not authorized to make any decisions on Ms. Miranda's care and states the medical team will need to speak with her son Henri. Informed him we have not been able to reach him despite multiple phone calls and messages. inquires about what decisions is needing to be made. Informed him medical team is looking for a decision and guidance regarding colostomy and possible debridement/wound VAC. Answered his questions and concerns to the best of my ability. states he will attempt to get in contact with Henri and have him contact the hospital. Palliative care will request additional contact information for brother to be added to contacts in EMR. Attempted to contact patient's son, Henri again. Left message requesting call back. Left palliative care contact information and medical floor contact information. Palliative care will continue to follow throughout hospitalization. Palliative care is not here over the weekend and would recommend staff continue attempts to contact patient's son for a decisions regarding recommendations and goals of medical treatment.
[2018-07-27] MEDS ORDERED: Pharmacy Ordered Lab Info OTHER ONE (11:45)
[2018-07-27] MEDS: Vancomycin Inj 1,000 MG in Sodium Chlor 0.9% Inj 250 ML IV.SIG SCH (13:32)
--- NOTE | 2018-07-27 14:07 | P.PNIM ---
Subjective Interval history: Patient nonverbal as before. No changes per nursing. Continues with loose diarrhea via rectal tube. Physical Exam Vital signs: Vital Signs 07/26/18 16:00 07/26/18 20:00 07/26/18 21:49 Temperature 98.0 F 98.1 F Pulse Rate 84 95 H Respiratory Rate 17 17 Blood Pressure 134/82 154/82 H Pulse Oximetry 100 98 98 07/27/18 00:39 07/27/18 08:00 07/27/18 12:00 Temperature 98.2 F 97.6 F 97.7 F Pulse Rate 81 84 107 H Respiratory Rate 18 18 18 Blood Pressure 142/80 H 141/88 H 162/100 H Pulse Oximetry 94 L 100 99 Intake & Output 07/26/18 07/27/18 07/27/18 18:59 06:59 18:59 Intake Total 100 / 100 1206 / 1206 Output Total 900 / 900 1999 Balance -800 / -800 -794 / -794 Weight 59.6 kg Intake: IV 100 / 100 450 / 450 Maxipime Inj 2,000 MG In NS Inj 100 / 100 200 / 200 100 ML @ 200 mls/hr IV.SIG Q8H [facility] Rx#:[id number] Vancomycin Inj 1,000 MG In NS 250 / 250 Inj 250 ML @ 250 mls/hr IV.SIG Q18H [facility] Rx#:[id number] Tube Feeding 756 / 756 Output: Urine 900 / 900 Urine Amount (Catheter) 1999 Indwelling Urethral Catheter 1999 Other: Date of Last Bowel Movement 07/26/18 07/26/18 Narrative: GENERAL: sleeping, wakes up for exam. Makes good eye contact as before. Exam again unchanged. SKIN: Warm and dry. HEAD: Normocephalic. EYES: No scleral icterus. No injection or drainage. NECK: Supple, trachea midline. No JVD. CARDIOVASCULAR: Regular rate and rhythm without murmurs, gallops, or rubs. RESPIRATORY: Breath sounds equal bilaterally. No accessory muscle use. GASTROINTESTINAL: Abdomen soft, non-tender, nondistended. MUSCULOSKELETAL: No cyanosis, or edema. - Urinary Catheter Management Indwelling Urethral Catheter Cath placed during this visit: yes, but has since been removed by the nurse Reason for continuing: Severe pressure ulcer/wound Insertion date: 07/12/18 Insertion time: 01:00 Removal date: 07/12/18 Removal time: 12:50 Results - Labs CBC & Chem 7: 07/23/18 04:54 07/26/18 05:27 Laboratory Results - last 24 hr 07/26/18 07/26/18 07/27/18 17:50 22:13 08:06 POC Glucose 121 H 110 114 H Vancomycin Trough 07/27/18 07/27/18 11:58 12:20 POC Glucose 123 H Vancomycin Trough 11.8 H Assessment and Plan - Plan 63 year old female with a history of hemorrhagic CVA and severe chronic neurological deficit, admitted with diarrhea from C. Diff. //Sepsis //Pseudomonas bacteremia and MRSA bacteremia //Proteus catheter related urinary tract infection prehospital + Blood cultures, started on IV vancomycin and cefepime -ID consulted, greatly appreciate assistance and recommendations -Likely source of sepsis is stage IV coccyx ulcer -Final ID recommendations for antibiotic pending final repeat blood cultures are negative. Discussed with Dr. Cruz who feels if family continues to want aggressive treatment will need a evaluation consult for a colostomy. For diverting colostomy with Dr. Monreal pending son's consent. At this time, son would want to discuss further with his uncle and will let us know final decision in the next few days. = Son will need to decide upon colostomy placement = 07/24. Discussed with case management, nursing. Son is to arrive today at 4 PM. = 07/25. Discussed with son yesterday who is not sure whether to go ahead with diverting colostomy or not. Palliative care and surgical/wound care assistance appreciated. Discussed with infectious disease today he will work on placing final recommendations for IV antibiotics . = Son to discuss possible colostomy with wound care. Appreciate nursing and wound care assistance. If son agrees with colostomy, will consult plastic surgery. Palliative care and surgery assistance appreciated. //Severe malnutritioncontinue with tube feeds //Hyponatremia Dehydration secondary to diarrhea These appears secondary to C. difficile colitis sodium levels continue to improve, will discontinue fluids. //C Diff Colitis Leukocytosis PEG p.o. vancomycin Isolation Follow for improvement = 07/25. Discussed with infectious disease who will place final recommendations. = 07/26. Discussed with infectious disease yesterday. Patient still with loose stools. Infectious disease has ordered mesalamine to help with postinfectious inflammatory component. Appreciate assistance. = 07/27. Still with diarrhea via tube. Continue mesalamine. Continue to monitor. //Dehydration AKIimproved Follow renal function Avoid nephrotoxins IV Hydration continued //Hypotension Treat dehydration //Hx of Hemorrhagic CVA Chronic severe neurological deficits Supportive Care //Chronic sacral ulcer Stage IV Wound care nurse following Wound care physician consulted, Dr. Morales performed bedside debridement of wound Patient would benefit from diverting colostomy pending son's decision //Continue Zoloft for possible underlying depression. //DVT Prophylaxis SCDs Palliative care following a meeting with children to establish goals. Extremely poor prognosis, however children desired aggressive treatment. Discharge Planning: Continued inpatient care. Awaiting possible diverting colostomy for treatment of sacral ulcer. Will need infectious disease final recommendations for continuing antibiotics, however patient still with diarrhea..
[2018-07-28] MEDS: Dextrose 5% in Water Inj 1,000 ML IV.CONT SCH (05:20)
[2018-07-28 05:51] LABS: Eos # (Auto) 0.4 th/mm3 (0.0-0.4); Eos % (Auto) 10.5 % (0.0-4.0); Hematocrit 24.3 % (35.0-46.0); Hemoglobin 7.9 gm/dL (11.6-15.3); Lymph # (Auto) 1.2 th/mm3 (1.0-4.8); Lymph % (Auto) 29.3 % (9.0-44.0); Mean Corpuscular HGB Conc 32.6 % (32.0-36.0); Mean Corpuscular Hemoglobin 26.8 pg (27.0-34.0); Mean Platelet Volume 9.4 fL (7.0-11.0); Mono # (Auto) 0.8 th/mm3 (0.0-0.9); Mono % (Auto) 19.3 % (0.0-8.0); Neut # (Auto) 1.6 th/mm3 (1.8-7.7); Neut % (Auto) 39.9 % (16.0-70.0); Platelet Count 181 th/mm3 (150-450); Red Blood Count 2.97 mil/mm3 (4.00-5.30); Red Cell Distribution Width 21.5 % (11.6-17.2); White Blood Count 4.1 th/mm3 (4.0-11.0)
[2018-07-28 06:12] LABS: Albumin 1.9 g/dL (3.4-5.0); Anion Gap 8 meq/L (5-15); Blood Urea Nitrogen 11 mg/dL (7-18); Calcium 8.1 mg/dL (8.5-10.1); Carbon Dioxide 28.1 meq/L (21.0-32.0); Chloride 110 meq/L (98-107); Glomerular Filtration Rate Greater Than 89 mL/min (>89); Glucose,Random 86 mg/dL (74-106); Magnesium 1.8 mg/dL (1.5-2.5); Phosphorus 2.8 mg/dL (2.5-4.9); Potassium 3.8 meq/L (3.5-5.1); Sodium 146 meq/L (136-145)
[2018-07-28] MEDS: hydrALAZINE 50 MG Tablet PO SCH ×3 (08:45→18:12)
[2018-07-28] MEDS: Sertraline 50 MG Tablet PO SCH (08:47)
[2018-07-28] MEDS: Mesalamine 800 MG Tablet DR PO SCH ×3 (08:47→18:12)
[2018-07-28] MEDS: Insulin NovoLOG Aspart Correctional Sugar Inj SQ SCH ×4 (08:47→20:19)
[2018-07-28] MEDS: Lactobacillus Acidophilus/L. Spores Tablet G-TUBE SCH ×3 (08:47→18:13)
[2018-07-28] MEDS: POLYMYXIN TOPICAL SCH (09:58)
[2018-07-28] MEDS: BACITRACIN TOPICAL SCH (09:58)
[2018-07-28] MEDS: Vancomycin Inj 1,000 MG in Sodium Chlor 0.9% Inj 250 ML IV.SIG SCH ×3 (12:35)
--- NOTE | 2018-07-28 14:18 | P.PNIM ---
Subjective Interval history: Continues nonverbal. No change on exam. Physical Exam Vital signs: Vital Signs 07/27/18 16:00 07/27/18 20:00 07/27/18 23:00 Temperature 97.6 F 98.6 F Pulse Rate 111 H 107 H Respiratory Rate 18 18 Blood Pressure 164/101 H 156/87 H Pulse Oximetry 98 100 100 07/28/18 00:00 07/28/18 04:46 07/28/18 08:00 Temperature 98.8 F 98.7 F 98.2 F Pulse Rate 100 H 87 80 Respiratory Rate 18 17 18 Blood Pressure 163/85 H 140/92 H 134/83 Pulse Oximetry 99 96 100 07/28/18 12:00 Temperature 97.3 F L Pulse Rate 84 Respiratory Rate 19 Blood Pressure 139/99 H Pulse Oximetry 99 Intake & Output 07/27/18 07/28/18 07/28/18 18:59 06:59 18:59 Intake Total 350 / 350 663 / 663 350 / 350 Output Total 800 / 800 1800 / 1800 Balance -450 / -450 -1137 / -1137 350 / 350 Weight 59.6 kg Intake: IV 350 / 350 450 / 450 350 / 350 Maxipime Inj 2,000 MG In NS Inj 100 / 100 200 / 200 100 / 100 100 ML @ 200 mls/hr IV.SIG Q8H [facility] Rx#:[id number] Vancomycin Inj 1,000 MG In NS 250 / 250 250 / 250 250 / 250 Inj 250 ML @ 250 mls/hr IV.SIG Q12H [facility] Rx#:[id number] Tube Feeding 213 / 213 Output: Urine 600 / 600 Stool 200 / 200 Urine Amount (Catheter) 1800 / 1800 Indwelling Urethral Catheter 1800 / 1800 Other: Date of Last Bowel Movement 07/26/18 07/28/18 07/28/18 Narrative: GENERAL: sleeping, wakes up for exam. Makes good eye contact as before. Exam unchanged. SKIN: Warm and dry. HEAD: Normocephalic. EYES: No scleral icterus. No injection or drainage. NECK: Supple, trachea midline. No JVD. CARDIOVASCULAR: Regular rate and rhythm without murmurs, gallops, or rubs. RESPIRATORY: Breath sounds equal bilaterally. No accessory muscle use. GASTROINTESTINAL: Abdomen soft, non-tender, nondistended. Still with loose stool in stool collection bag MUSCULOSKELETAL: No cyanosis, or edema. - Urinary Catheter Management Indwelling Urethral Catheter Cath placed during this visit: yes, but has since been removed by the nurse Reason for continuing: Severe pressure ulcer/wound Insertion date: 07/12/18 Insertion time: 01:00 Removal date: 07/12/18 Removal time: 12:50 Results - Labs CBC & Chem 7: 07/28/18 04:40 07/28/18 04:40 Laboratory Results - last 24 hr 07/27/18 07/27/18 07/28/18 18:56 23:05 04:40 WBC 4.1 RBC 2.97 L Hgb 7.9 L Hct 24.3 L MCV 82.0 MCH 26.8 L MCHC 32.6 RDW 21.5 H Plt Count 181 MPV 9.4 Neut % (Auto) 39.9 Lymph % (Auto) 29.3 [place] % (Auto) 19.3 H Eos % (Auto) 10.5 H Baso % (Auto) 1.0 Neut # (Auto) 1.6 L Lymph # (Auto) 1.2 [place] # (Auto) 0.8 Eos # (Auto) 0.4 Baso # (Auto) 0.0 WBC Differential . Differential Comment Auto diff final Sodium Potassium Chloride Carbon Dioxide Anion Gap BUN Creatinine Estimated GFR POC Glucose 114 H 99 Random Glucose Calcium Phosphorus Magnesium Albumin 07/28/18 07/28/18 07/28/18 04:40 07:42 12:10 WBC RBC Hgb Hct MCV MCH MCHC RDW Plt Count MPV Neut % (Auto) Lymph % (Auto) [place] % (Auto) Eos % (Auto) Baso % (Auto) Neut # (Auto) Lymph # (Auto) [place] # (Auto) Eos # (Auto) Baso # (Auto) WBC Differential Differential Comment Sodium 146 H Potassium 3.8 Chloride 110 H Carbon Dioxide 28.1 Anion Gap 8 BUN 11 Creatinine 0.26 L Estimated GFR Greater than 89 POC Glucose 113 H 102 Random Glucose 86 Calcium 8.1 L Phosphorus 2.8 Magnesium 1.8 Albumin 1.9 L Assessment and Plan - Plan 63 year old female with a history of hemorrhagic CVA and severe chronic neurological deficit, admitted with diarrhea from C. Diff. //Sepsis //Pseudomonas bacteremia and MRSA bacteremia //Proteus catheter related urinary tract infection prehospital + Blood cultures, started on IV vancomycin and cefepime -ID consulted, greatly appreciate assistance and recommendations -Likely source of sepsis is stage IV coccyx ulcer -Final ID recommendations for antibiotic pending final repeat blood cultures are negative. Discussed with Dr. Cruz who feels if family continues to want aggressive treatment will need a evaluation consult for a colostomy. For diverting colostomy with Dr. Monreal pending son's consent. At this time, son would want to discuss further with his uncle and will let us know final decision in the next few days. = Son will need to decide upon colostomy placement = 07/24. Discussed with case management, nursing. Son is to arrive today at 4 PM. = 07/25. Discussed with son yesterday who is not sure whether to go ahead with diverting colostomy or not. Palliative care and surgical/wound care assistance appreciated. Discussed with infectious disease today he will work on placing final recommendations for IV antibiotics . = Son to discuss possible colostomy with wound care. Appreciate nursing and wound care assistance. If son agrees with colostomy, will consult plastic surgery. Palliative care and surgery assistance appreciated. //Severe malnutritioncontinue with tube feeds //Hypernatremia. Sodium 147. Will start back on free water flushes. Will decrease D5 fluids. If improves, will plan to discontinue D5 IV fluids tomorrow //C Diff Colitis Leukocytosis PEG p.o. vancomycin Isolation Follow for improvement = 07/25. Discussed with infectious disease who will place final recommendations. = 07/26. Discussed with infectious disease yesterday. Patient still with loose stools. Infectious disease has ordered mesalamine to help with postinfectious inflammatory component. Appreciate assistance. = 07/28. Still with diarrhea via tube. Continue mesalamine. Continue to monitor. Expect to improve. //Dehydration AKIimproved Follow renal function Avoid nephrotoxins IV Hydration continued //Hypotension Treat dehydration //Hx of Hemorrhagic CVA Chronic severe neurological deficits Supportive Care //Chronic sacral ulcer Stage IV Wound care nurse following Wound care physician consulted, Dr. Morales performed bedside debridement of wound Patient would benefit from diverting colostomy pending son's decision //Continue Zoloft for possible underlying depression. //DVT Prophylaxis SCDs Palliative care following a meeting with children to establish goals. Extremely poor prognosis, however children desired aggressive treatment. Discharge Planning: Continued inpatient care. Awaiting possible diverting colostomy for treatment of sacral ulcer. Will need infectious disease final recommendations for continuing antibiotics, however patient still with diarrhea..
[2018-07-29] MEDS: Dextrose 5% in Water Inj 1,000 ML IV.CONT SCH ×2 (02:54→23:41)
[2018-07-29 05:49] LABS: Eos # (Auto) 0.5 th/mm3 (0.0-0.4); Eos % (Auto) 12.7 % (0.0-4.0); Hematocrit 24.8 % (35.0-46.0); Hemoglobin 7.9 gm/dL (11.6-15.3); Lymph # (Auto) 1.1 th/mm3 (1.0-4.8); Lymph % (Auto) 29.5 % (9.0-44.0); Mean Corpuscular HGB Conc 31.9 % (32.0-36.0); Mean Corpuscular Hemoglobin 26.7 pg (27.0-34.0); Mean Corpuscular Volume 83.6 fL (80.0-100.0); Mean Platelet Volume 9.3 fL (7.0-11.0); Mono # (Auto) 0.6 th/mm3 (0.0-0.9); Mono % (Auto) 16.9 % (0.0-8.0); Neut # (Auto) 1.5 th/mm3 (1.8-7.7); Neut % (Auto) 39.9 % (16.0-70.0); Platelet Count 191 th/mm3 (150-450); Red Blood Count 2.96 mil/mm3 (4.00-5.30); Red Cell Distribution Width 21.8 % (11.6-17.2); White Blood Count 3.7 th/mm3 (4.0-11.0)
[2018-07-29] MEDS: Insulin NovoLOG Aspart Correctional Sugar Inj SQ SCH ×4 (07:54→20:38)
[2018-07-29] MEDS: hydrALAZINE 50 MG Tablet PO SCH ×3 (09:01→17:54)
[2018-07-29] MEDS: Mesalamine 800 MG Tablet DR PO SCH ×3 (09:01→17:54)
[2018-07-29] MEDS: Sertraline 50 MG Tablet PO SCH (09:02)
[2018-07-29] MEDS: Lactobacillus Acidophilus/L. Spores Tablet G-TUBE SCH ×3 (09:02→17:54)
--- NOTE | 2018-07-29 10:46 | P.PN ---
Subjective Interval history: Continues nonverbal. No change on exam. Physical Exam Vital signs: Vital Signs 07/28/18 12:00 07/28/18 16:00 07/28/18 20:00 Temperature 97.3 F L 97.4 F L 99.4 F Pulse Rate 84 101 H 113 H Respiratory Rate 19 18 16 Blood Pressure 139/99 H 163/87 H 136/82 Pulse Oximetry 99 99 96 07/29/18 00:00 07/29/18 08:00 Temperature 98.7 F 99.0 F Pulse Rate 100 H 89 Respiratory Rate 16 16 Blood Pressure 143/93 H 150/86 H Pulse Oximetry 98 100 Intake & Output 07/28/18 07/29/18 07/29/18 18:59 06:59 18:59 Intake Total 1599 / 1599 2339 / 2339 Output Total 1125 / 1125 1300 / 1300 Balance 474 / 474 1039 / 1039 Intake: IV 450 / 450 1350 / 1350 D5W Inj 1,000 ML @ 35 mls/hr IV 1000 / 1000 .CONT .Q24H [facility] Rx#:[id number] Maxipime Inj 2,000 MG In NS Inj 200 / 200 100 / 100 100 ML @ 200 mls/hr IV.SIG Q8H [facility] Rx#:[id number] Vancomycin Inj 1,000 MG In NS 250 / 250 250 / 250 Inj 250 ML @ 250 mls/hr IV.SIG Q12H [facility] Rx#:[id number] Tube Feeding 749 / 749 589 / 589 Water Bolus Amount 400 / 400 400 / 400 Output: Urine Amount (Catheter) 1125 / 1125 1300 / 1300 Indwelling Urethral Catheter 1125 / 1125 1300 / 1300 Other: Date of Last Bowel Movement 07/28/18 07/28/18 Narrative: GENERAL: sleeping, wakes up for exam. good eye contact. SKIN: Warm and dry. HEAD: Normocephalic. EYES: No scleral icterus. No injection or drainage. NECK: Supple, trachea midline. No JVD. CARDIOVASCULAR: Regular rate and rhythm without murmurs, gallops, or rubs. RESPIRATORY: Breath sounds equal bilaterally. No accessory muscle use. GASTROINTESTINAL: Abdomen soft, non-tender, nondistended. Still with loose stool in stool collection bag MUSCULOSKELETAL: No cyanosis, or edema. - Urinary Catheter Management Indwelling Urethral Catheter Cath placed during this visit: yes, but has since been removed by the nurse Reason for continuing: Severe pressure ulcer/wound Insertion date: 07/12/18 Insertion time: 01:00 Removal date: 07/12/18 Removal time: 12:50 Results - Labs CBC & Chem 7: 07/29/18 04:46 08/01/18 06:23 Laboratory Results - last 24 hr 07/28/18 07/28/18 07/28/18 12:10 16:51 20:18 WBC RBC Hgb Hct MCV MCH MCHC RDW Plt Count MPV Neut % (Auto) Lymph % (Auto) [facility] % (Auto) Eos % (Auto) Baso % (Auto) Neut # (Auto) Lymph # (Auto) [facility] # (Auto) Eos # (Auto) Baso # (Auto) WBC Differential Differential Comment POC Glucose 102 114 H 108 07/29/18 07/29/18 04:46 07:22 WBC 3.7 L RBC 2.96 L Hgb 7.9 L Hct 24.8 L MCV 83.6 MCH 26.7 L MCHC 31.9 L RDW 21.8 H Plt Count 191 MPV 9.3 Neut % (Auto) 39.9 Lymph % (Auto) 29.5 [facility] % (Auto) 16.9 H Eos % (Auto) 12.7 H Baso % (Auto) 1.0 Neut # (Auto) 1.5 L Lymph # (Auto) 1.1 [facility] # (Auto) 0.6 Eos # (Auto) 0.5 H Baso # (Auto) 0.0 WBC Differential . Differential Comment Auto diff final POC Glucose 114 H Assessment and Plan - Plan 63 year old female with a history of hemorrhagic CVA and severe chronic neurological deficit, admitted with diarrhea from C. Diff. //Sepsis //Pseudomonas bacteremia and MRSA bacteremia //Proteus catheter related urinary tract infection prehospital + Blood cultures, started on IV vancomycin and cefepime -ID consulted, greatly appreciate assistance and recommendations -Likely source of sepsis is stage IV coccyx ulcer -Final ID recommendations for antibiotic pending final repeat blood cultures are negative. Discussed with Dr. Cruz who feels if family continues to want aggressive treatment will need a evaluation consult for a colostomy. For diverting colostomy with Dr. Monreal pending son's consent. At this time, son would want to discuss further with his uncle and will let us know final decision in the next few days. discussed on Multidisciplinary round, not been able to get in contact with her Son to sign the consent for Diverting Colostomy. //Severe malnutritioncontinue with tube feeds //C Diff Colitis Leukocytosis PEG p.o. vancomycin Isolation //Hx of Hemorrhagic CVA Chronic severe neurological deficits Supportive Care //Chronic sacral ulcer Stage IV Wound care nurse following Wound care physician consulted, Dr. Morales performed bedside debridement of wound Patient would benefit from diverting colostomy pending son's decision //Continue Zoloft for possible underlying depression. //DVT Prophylaxis SCDs Palliative care following a meeting with children to establish goals. Extremely poor prognosis, however children desired aggressive treatment. Code Status: Full code Discussed Condition With: Nurse and MDR. Discharge Planning: Continued inpatient care. Awaiting possible diverting colostomy for treatment of sacral ulcer. Will need infectious disease final recommendations for continuing antibiotics, however patient still with diarrhea..
[2018-07-29] MEDS ORDERED: Pharmacy Ordered Lab Info OTHER ONE (11:45)
[2018-07-29 12:50] LABS: Anion Gap 8 meq/L (5-15); Blood Urea Nitrogen 14 mg/dL (7-18); Calcium 7.9 mg/dL (8.5-10.1); Carbon Dioxide 26.8 meq/L (21.0-32.0); Chloride 108 meq/L (98-107); Glomerular Filtration Rate Greater Than 89 mL/min (>89); Glucose,Random 98 mg/dL (74-106); Magnesium 1.8 mg/dL (1.5-2.5); Phosphorus 2.6 mg/dL (2.5-4.9); Potassium 4.1 meq/L (3.5-5.1); Sodium 143 meq/L (136-145)
[2018-07-29 12:51] LABS: Vancomycin,Trough 16.9 mcg/mL (5.0-10.0)
[2018-07-29] MEDS: Vancomycin Inj 1,000 MG in Sodium Chlor 0.9% Inj 250 ML IV.SIG SCH ×4 (13:09→23:41)
[2018-07-30] MEDS: Insulin NovoLOG Aspart Correctional Sugar Inj SQ SCH ×4 (08:17→20:55)
[2018-07-30] MEDS: Sertraline 50 MG Tablet PO SCH (10:05)
[2018-07-30] MEDS: Mesalamine 800 MG Tablet DR PO SCH ×3 (10:05→17:33)
[2018-07-30] MEDS: hydrALAZINE 50 MG Tablet PO SCH ×3 (10:06→17:33)
[2018-07-30] MEDS: Lactobacillus Acidophilus/L. Spores Tablet G-TUBE SCH ×3 (10:07→17:33)
[2018-07-30] MEDS: Vancomycin Inj 1,000 MG in Sodium Chlor 0.9% Inj 250 ML IV.SIG SCH ×2 (12:35→23:28)
--- NOTE | 2018-07-30 15:44 | P.PN ---
Subjective Interval history: This is a pleasant 63 y/o Female with status post CVA hemorrhagic type, chronic neurological deficits Sepsis, initially positive culture for Coagulase negative staph aureus, MRSA and Pseudomonas aeruginosa C Diff diarrhea, Sacral wound, asked for diverting colostomy as per triage specialist. route specialist following, she remains full code, is been tried to contact her son to sign consent for Diverting Colostomy. Physical Exam Vital signs: Vital Signs 07/29/18 16:00 07/29/18 20:00 07/30/18 00:00 Temperature 97.4 F L 98.8 F 98.3 F Pulse Rate 88 98 H 80 Respiratory Rate 18 18 18 Blood Pressure 140/85 155/87 H 167/89 H Pulse Oximetry 100 96 97 07/30/18 08:00 07/30/18 12:00 Temperature 98.1 F 98.2 F Pulse Rate 71 92 H Respiratory Rate 14 16 Blood Pressure 160/95 H 142/89 H Pulse Oximetry 99 98 Intake & Output 07/29/18 07/30/18 07/30/18 18:59 06:59 18:59 Intake Total 450 / 450 2972 / 2972 100 / 100 Output Total 1800 / 1800 Balance 450 / 450 1172 / 1172 100 / 100 Weight 62.5 kg Intake: IV 450 / 450 1350 / 1350 100 / 100 D5W Inj 1,000 ML @ 35 mls/hr IV 1000 / 1000 .CONT .Q24H [facility] Rx#:[id number] Maxipime Inj 2,000 MG In NS Inj 200 / 200 100 / 100 100 / 100 100 ML @ 200 mls/hr IV.SIG Q8H [facility] Rx#:[id number] Vancomycin Inj 1,000 MG In NS 250 / 250 250 / 250 Inj 250 ML @ 250 mls/hr IV.SIG Q12H [facility] Rx#:[id number] Tube Feeding 1222 / 1222 Tube Irrigant 400 / 400 Output: Urine 1800 / 1800 Other: Date of Last Bowel Movement 07/28/18 07/28/18 Narrative: GENERAL: sleeping, wakes up for exam. good eye contact. SKIN: Warm and dry. HEAD: Normocephalic. EYES: No scleral icterus. No injection or drainage. NECK: Supple, trachea midline. No JVD. CARDIOVASCULAR: Regular rate and rhythm without murmurs, gallops, or rubs. RESPIRATORY: Breath sounds equal bilaterally. No accessory muscle use. GASTROINTESTINAL: Abdomen soft, non-tender, nondistended. Still with loose stool in stool collection bag MUSCULOSKELETAL: No cyanosis, or edema. - Urinary Catheter Management Indwelling Urethral Catheter Cath placed during this visit: yes, but has since been removed by the nurse Reason for continuing: Severe pressure ulcer/wound Insertion date: 07/12/18 Insertion time: 01:00 Removal date: 07/12/18 Removal time: 12:50 Results - Labs CBC & Chem 7: 07/29/18 04:46 08/01/18 06:23 Laboratory Results - last 24 hr 07/29/18 07/29/18 07/30/18 17:06 19:32 07:50 POC Glucose 110 100 106 07/30/18 12:32 POC Glucose 123 H Assessment and Plan - Plan - Plan 63 year old female with a history of hemorrhagic CVA and severe chronic neurological deficit, admitted with diarrhea from C. Diff. //Sepsis //Pseudomonas bacteremia and MRSA bacteremia //Proteus catheter related urinary tract infection prehospital + Blood cultures, started on IV vancomycin and cefepime -ID consulted, greatly appreciate assistance and recommendations -Likely source of sepsis is stage IV coccyx ulcer -Final ID recommendations for antibiotic pending final repeat blood cultures are negative. Discussed with Dr. Cruz who feels if family continues to want aggressive treatment will need a evaluation consult for a colostomy. For diverting colostomy with Dr. Monreal pending son's consent. At this time, son would want to discuss further with his uncle and will let us know final decision in the next few days. discussed on Multidisciplinary round, not been able to get in contact with her Son to sign the consent for Diverting Colostomy. //Severe malnutritioncontinue with tube feeds //C Diff Colitis Leukocytosis PEG p.o. vancomycin Isolation //Hx of Hemorrhagic CVA Chronic severe neurological deficits Supportive Care //Chronic sacral ulcer Stage IV Wound care nurse following Wound care physician consulted, Dr. Morales performed bedside debridement of wound Patient would benefit from diverting colostomy pending son's decision //Continue Zoloft for possible underlying depression. //DVT Prophylaxis SCDs This is a pleasant 63 y/o Female with status post CVA hemorrhagic type, chronic neurological deficits Sepsis, initially positive culture for Coagulase negative staph aureus, MRSA and Pseudomonas aeruginosa C Diff diarrhea, Sacral wound, asked for diverting colostomy as per triage specialist. route specialist following, she remains full code, is been tried to contact her son to sign consent for Diverting Colostomy. Code Status: Full code. Discussed Condition With: Nurse and MDR. Discharge Planning: Continued inpatient care. Awaiting possible diverting colostomy for treatment of sacral ulcer. Will need infectious disease final recommendations for continuing antibiotics, however patient still with diarrhea..
--- NOTE | 2018-07-30 17:01 | P.DIET ---
Nutritional Evaluation Type of nutrition evaluation: follow-up Nutrition consult regarding: Tube Feeding Nutrition screening: Pressure Injury Subjective Subjective Comments: Pt is non-verbal at baseline. Ht of 167.64cm used for assessment. Pt w/eyes closed. TF'ing running @ 55ml/hr. Spoke w/RN Vicki regarding Rec TF'ing rate 50ml/hr and addition of Tyshawn 2-packets BID. Objective - Diagnosis Sepsis, Dehydration, Hypotension, C-Diff - Objective [place] body weight: 59.1 kg % IBW: 87 (IBW = 110#) Body Weight Used for Calculations: Actual (51.3 kg) Energy Needs - Lower Range (kCal/kg): 30 Energy Needs - Upper Range (kCal/kg): 35 Lower Limit kCal/kg (kCals): 1,539 Upper Limit kCal/kg (kCals): 1,796 Lower Limit Protein Factor (Grams per Kg): 1.2 Upper Limit Protein Factor (Grams per Kg): 1.5 Lower Protein Needs (Protein): 62 Upper Protein Needs (Protein): 89 Dietitian Reviewed in Medical Record: Curent medications, Intake & Output, Labs , Medical history, Tube feeding, Wound/DTI Diet Order: TF'ing Glucerna 1.5 @ 55ml/hr Wound Care Note: WOCN dated 07/12 indicates a stage 4 coccyx pressure injury Objective Comments: PMH Includes: HTN, CVA w/residual hemiparesis/aphasia, s/p PEG tube placement, recent c-diff diagnosis POC Glucose 106, 123 Meds Include: Novolog, Lactinex, Zofran, Zoloft, free water flush 200cc Q 6-hr +UOP 2425ml, +stool Feeding - Current Tube Feeding Tube Feeding Product: Glucerna 1.5 Tube Feeding Rate: 55 Tube Feeding Route: gastrostomy Current kCals Provided by Tube Feedin,980 Current Protein Provided by Tube Feeding (gPRO): 109 Current Free H2O Provided (m/l): 1,002 Assessment Assessment: Pt remains at high nutrition risk r/t increased needs for wound healing and her dependence on TF'ing for nutritional needs. For continuous TF'ing w/ Glucerna 1.5, Rec a goal rate @ 50 mls/hr to offer 1800 kcal, 99g Protein and 911ml free water. Rec addition of Tyshawn 1 packet BID via PEG tube to aid in healing-above discussed w/LINSEY Cohen. Tyshawn is a targeted nutrition therapy that contains arginine and glutamine as well as CaHMB. Free Water Flushes per MD, as ordered. Wt changes noted. Dietitian following. Recommendations: 1. For continuous TF'ing w/Glucerna 1.5, Rec a goal rate @ 50 ml/hr 2. Rec addition of Tys[place]wn 1 packet BID via PEG tube to aid in healing 3. Free Water Flushes per MD as ordered 4. Dietitian following Dietitian to Monitor: Lab values, Intake & Output, Tube feeding tolerance, Weight change, Wound/skin status, Medical course
--- NOTE | 2018-07-30 17:16 | P.PNPAL ---
Reason for Visit Reason for visit: a. To assist with evaluation and management of symptoms including: pain, debility b. To assist medical decision maker(s) with: better understanding of current medical conditions; weighing benefits/burdens of medical treatment options; making medical treatment decisions. Subjective Subjective/Interval History: . Ms. Miranda is a 63 year [facility] resident who presented to [facility] on 07/06/18 for evaluation of hypotension (BP 72/58) and bandemia on outpatient labs. Patient had a lengthy hospitalization status post CVA in April,. She remained hospitalized until Mar, 2018 when she was discharged to a NH. After being evaluated in the ED, the patient was admitted for medical management of sepsis, C. difficile, dehydration and hypotension. Follow up visit for symptom management and clarification of medical treatment goals. Gen surgery following for possible diverting colostomy, last week son reported needed to talk more RE with his uncle. Nursing reports has not indicated or called back if he wishes to proceed or not. 7.07/30.9, anemic, stable. Chemistry unremarkable. Remains on vancomycin for C. difficile. Seen in room, no visitors present. Dual visit with Ronal ODOM. Patient is awake eyes are open. She does appear to move to verbal stimuli though not clear that she is consistently tracking. She does not follow any commands. She does not consistently look in the direction of voice or stimuli. She does not appear to be in any discomfort. Following exam call to ousmane Álvarez, voicemail left. Per prior pal care interactions: Patient's son, Henri, has expressed ongoing aggressive goals. Advance Directives Advance Directives Date on File: 07/12/18 Health Care Surrogate Name and Number: SonHenri, designated HCS. Daughter, Geri, is alternate HCS Documented care wishes:: No known documented care wishes have been completed Objective Vital Signs: Vital Signs 07/29/18 20:00 07/30/18 00:00 07/30/18 08:00 Temperature 98.8 F 98.3 F 98.1 F Pulse Rate 98 H 80 71 Respiratory Rate 18 18 14 Blood Pressure 155/87 H 167/89 H 160/95 H Pulse Oximetry 96 97 99 07/30/18 12:00 Temperature 98.2 F Pulse Rate 92 H Respiratory Rate 16 Blood Pressure 142/89 H Pulse Oximetry 98 Intake & Output 07/29/18 07/30/18 07/30/18 18:59 06:59 18:59 Intake Total 450 / 450 2972 / 2972 350 / 350 Output Total 1800 / 1800 Balance 450 / 450 1172 / 1172 350 / 350 Weight 62.5 kg Intake: IV 450 / 450 1350 / 1350 350 / 350 D5W Inj 1,000 ML @ 35 mls/hr IV 1000 / 1000 .CONT .Q24H [facility] Rx#:[id number] Maxipime Inj 2,000 MG In NS Inj 200 / 200 100 / 100 100 / 100 100 ML @ 200 mls/hr IV.SIG Q8H [facility] Rx#:[id number] Vancomycin Inj 1,000 MG In NS 250 / 250 250 / 250 250 / 250 Inj 250 ML @ 250 mls/hr IV.SIG Q12H [facility] Rx#:[id number] Tube Feeding 1222 / 1222 Tube Irrigant 400 / 400 Output: Urine 1800 / 1800 Other: Date of Last Bowel Movement 07/28/18 07/28/18 Physical Exam: CONSTITUTIONAL/GENERAL: This is a frail, debilitated female in no acute distress TUBES/LINES/DRAINS: Nasal cannula, PEG, PIV, rectal drain, Cruz catheter SKIN: No jaundice, rashes, or lesions. PEG tube dressing clean and dry. Skin warm and dry. EYES: Pupils equal and round and reactive. Extraocular motions intact. No scleral icterus. No injection or drainage. Fundi not examined. ENT: Nose without bleeding or purulent drainage. Does not open-mouth for oropharynx exam. NECK: Trachea midline. Supple, nontender. No palpable thyroid enlargement or nodularity. CARDIOVASCULAR: Regular rate and rhythm. + Murmur. No JVD. Peripheral pulses symmetric. RESPIRATORY/CHEST: Symmetric, unlabored respirations. On 2 L. Breath sounds diminished bilaterally. GASTROINTESTINAL: Abdomen soft, non-tender, nondistended. Tolerating artificial nutrition. No guarding. Bowel sounds present. Large amount of greenish brown liq stool visible in rectal drain bag. GENITOURINARY: Without palpable bladder distension. MUSCULOSKELETAL: Extremities without clubbing, cyanosis. Trace edema left hand/ wrist. Lower extremities drawn up appears somewhat contracted and resistant to movement. NEUROLOGICAL: Opens her eyes spontaneously, moves eyes around to voice and stimuli though not clear if she is consistently tracking. Does not respond to questions or follow commands. PSYCHIATRIC: No obvious anxiety/depression. No apparent hallucinations or other psychotic thought process. Diagnostic Tests Laboratory: Laboratory Results - last 72 hr 07/27/18 07/27/18 07/28/18 18:56 23:05 04:40 WBC 4.1 RBC 2.97 L Hgb 7.9 L Hct 24.3 L MCV 82.0 MCH 26.8 L MCHC 32.6 RDW 21.5 H Plt Count 181 MPV 9.4 Neut % (Auto) 39.9 Lymph % (Auto) 29.3 Fergus % (Auto) 19.3 H Eos % (Auto) 10.5 H Baso % (Auto) 1.0 Neut # (Auto) 1.6 L Lymph # (Auto) 1.2 Fergus # (Auto) 0.8 Eos # (Auto) 0.4 Baso # (Auto) 0.0 WBC Differential . Differential Comment Auto diff final Sodium Potassium Chloride Carbon Dioxide Anion Gap BUN Creatinine Estimated GFR POC Glucose 114 H 99 Random Glucose Calcium Phosphorus Magnesium Albumin Vancomycin Trough 07/28/18 07/28/18 07/28/18 04:40 07:42 12:10 WBC RBC Hgb Hct MCV MCH MCHC RDW Plt Count MPV Neut % (Auto) Lymph % (Auto) Fergus % (Auto) Eos % (Auto) Baso % (Auto) Neut # (Auto) Lymph # (Auto) Fergus # (Auto) Eos # (Auto) Baso # (Auto) WBC Differential Differential Comment Sodium 146 H Potassium 3.8 Chloride 110 H Carbon Dioxide 28.1 Anion Gap 8 BUN 11 Creatinine 0.26 L Estimated GFR Greater than 89 POC Glucose 113 H 102 Random Glucose 86 Calcium 8.1 L Phosphorus 2.8 Magnesium 1.8 Albumin 1.9 L Vancomycin Trough 07/28/18 07/28/18 07/29/18 16:51 20:18 04:46 WBC 3.7 L RBC 2.96 L Hgb 7.9 L Hct 24.8 L MCV 83.6 MCH 26.7 L MCHC 31.9 L RDW 21.8 H Plt Count 191 MPV 9.3 Neut % (Auto) 39.9 Lymph % (Auto) 29.5 Fergus % (Auto) 16.9 H Eos % (Auto) 12.7 H Baso % (Auto) 1.0 Neut # (Auto) 1.5 L Lymph # (Auto) 1.1 Fergus # (Auto) 0.6 Eos # (Auto) 0.5 H Baso # (Auto) 0.0 WBC Differential . Differential Comment Auto diff final Sodium Potassium Chloride Carbon Dioxide Anion Gap BUN Creatinine Estimated GFR POC Glucose 114 H 108 Random Glucose Calcium Phosphorus Magnesium Albumin Vancomycin Trough 07/29/18 07/29/18 07/29/18 07:22 11:22 12:32 WBC RBC Hgb Hct MCV MCH MCHC RDW Plt Count MPV Neut % (Auto) Lymph % (Auto) Fergus % (Auto) Eos % (Auto) Baso % (Auto) Neut # (Auto) Lymph # (Auto) Fergus # (Auto) Eos # (Auto) Baso # (Auto) WBC Differential Differential Comment Sodium 143 Potassium 4.1 Chloride 108 H Carbon Dioxide 26.8 Anion Gap 8 BUN 14 Creatinine 0.32 L Estimated GFR Greater than 89 POC Glucose 114 H 113 H Random Glucose 98 Calcium 7.9 L Phosphorus 2.6 Magnesium 1.8 Albumin 2.0 L Vancomycin Trough 16.9 H 07/29/18 07/29/18 07/30/18 17:06 19:32 07:50 WBC RBC Hgb Hct MCV MCH MCHC RDW Plt Count MPV Neut % (Auto) Lymph % (Auto) Fergus % (Auto) Eos % (Auto) Baso % (Auto) Neut # (Auto) Lymph # (Auto) Fergus # (Auto) Eos # (Auto) Baso # (Auto) WBC Differential Differential Comment Sodium Potassium Chloride Carbon Dioxide Anion Gap BUN Creatinine Estimated GFR POC Glucose 110 100 106 Random Glucose Calcium Phosphorus Magnesium Albumin Vancomycin Trough 07/30/18 12:32 WBC RBC Hgb Hct MCV MCH MCHC RDW Plt Count MPV Neut % (Auto) Lymph % (Auto) Fergus % (Auto) Eos % (Auto) Baso % (Auto) Neut # (Auto) Lymph # (Auto) Fergus # (Auto) Eos # (Auto) Baso # (Auto) WBC Differential Differential Comment Sodium Potassium Chloride Carbon Dioxide Anion Gap BUN Creatinine Estimated GFR POC Glucose 123 H Random Glucose Calcium Phosphorus Magnesium Albumin Vancomycin Trough Result Diagrams: 07/29/18 04:46 07/29/18 11:22 Assessment and Plan - Disease Oriented Problem List (1) History of CVA (cerebrovascular accident) Comment: Status post hemorrhagic CVA in 04/2017 Chronic neurological deficits (2) Urinary tract infection Comment: Urine culture + proteus mirabilis (3) Sepsis Comment: Initial blood cultures positive for coag negative staph, MRSA and pseudomonas aeruginosa Follow-up blood culture on 07/11/2018-negative On vancomycin and cefepime. Infectious disease following. (4) C. difficile diarrhea Comment: Contact isolation (5) Sacral wound Comment: Stage IV Wound culture growing MRSA and pseudomonas aeruginosa Wound care following. If goals remain aggressive, recommendations for diverting colostomy with possible debridement/wound VAC (6) Dehydration Comment: Following labs Pertinent Non-Medical Issues: Psychosocial: Patient was born in [place]. She has 5 brothers and 5 sisters. Her childhood was described as happy. Patient has a history of homelessness and has been arrested for trespassing. She graduated from high school, then went to trade school. 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 Patient was when she was 21 years old but was 3 years later. Patient had 2 sons and 1 daughter. Patient has noncompliance with her medical regimen. She was Brock acted in the past secondary to delusions, paranoia and visual/auditory hallucinations. Spiritual: [employer] Legal: Son, Henri Birmingham, is designated as the healthcare surrogate decision maker. Daughter, Geri, is the alternate healthcare surrogate decision maker Ethical issues impacting care: No known ethical issues impacting care at this time. Important Contacts: Geri Wallace, daughter: [phone]. (This number no longer belongs to Geri ) Hneri Birmingham, son: [phone] King Elsy, brother: [phone] Prognosis: Patient is a frail, cachectic assisted resident status post CVA in April, with residual hemiparesis and aphasia. She is nonverbal and dependent for all care. She is now admitted with sepsis, C. difficile and a stage IV sacral decubitus wound. Patient's condition is guarded. She is at risk for deterioration if the source of infection cannot be controlled. Code Status: Full Code Plan: * FULL CODE * Decision making: Patient is unable to participate in establishment of medical treatment goals s/p CVA with residual hemiparesis and aphasia. She designated her son, Henri Birmingham, as her health care surrogate decision maker. Daughter, Aleena Wallace, is the alternate health care surrogate. * Message left for patient's son 07/25/2018, brother 07/26/2018. Voicemail again left for son 07/30/18. Palliative care contact information was provided to both son and brother. Unfortunately, we have not received any return phone calls at this point in time. Yuly Shi APRN spoke with the patient's son (Henri) on Monday07/20/18. Henri wanted to discuss decision with his uncle over the weekend before making a decision * If goals are going to remain aggressive, wound care has recommended diverting colostomy, possible wound debridement and wound VAC * Discussed patient with Genoveva (RN) and ILENE Buckner * Symptom management: == Debility: Patient has resided in a NH status post CVA in 04/2017 with residual hemiparesis and aphasia. She is dependent for all care. She is able to track with her eyes. Flat affect. Extremities are contracted. Dietitian recommending Tyshawn 1 pack BID via PEG to aid in healing. == Pain: Likely sources of pain are bedbound status, invasive lines, large tunneled sacral wound, sepsis, C. difficile infection, contractures. Patient was receiving tramadol 50 mg 2 times daily prior to admission. Monitor for signs and symptoms of nonverbal pain such as grimacing and moaning. I would suspect patient is experiencing pain during dressing changes; may want to consider restarting tramadol. * Palliative care will continue to follow this patient throughout her hospitalization to establish stress, assist with symptom management and clarification of medical treatment goals. Attestation Attestation: To help prompt me to consider important information that might be impacting today's encounter and assessment, information from prior notes written by myself or my colleagues may have been "brought forward" into today's note. My signature on this note, however, is an attestation that I personally performed the exam, history, and/or decision-making noted today, and, unless otherwise indicated, the interactions with patient, family, and staff as well as the review of records all occurred today. I also attest that the listed assessment and stated plan reflect my best clinical judgment today based on the combination of historical information, prior notes, and today's exam/ interactions. When time spent is documented, it refers only to time spent today by the signer, or if indicated, combined time spent today by collaborating physician/nurse practitioner.
[2018-07-30] MEDS: Dextrose 5% in Water Inj 1,000 ML IV.CONT SCH (21:38)
[2018-07-31] MEDS: Insulin NovoLOG Aspart Correctional Sugar Inj SQ SCH ×4 (09:11→20:00)
[2018-07-31] MEDS: Sertraline 50 MG Tablet PO SCH (09:54)
[2018-07-31] MEDS: Mesalamine 800 MG Tablet DR PO SCH ×3 (09:54→17:50)
[2018-07-31] MEDS: hydrALAZINE 50 MG Tablet PO SCH ×3 (09:56→17:50)
[2018-07-31] MEDS: Lactobacillus Acidophilus/L. Spores Tablet G-TUBE SCH ×3 (10:01→17:50)
[2018-07-31] MEDS: Vancomycin Inj 1,000 MG in Sodium Chlor 0.9% Inj 250 ML IV.SIG SCH ×2 (11:50→23:43)
--- NOTE | 2018-07-31 17:25 | P.PN ---
Subjective Interval history: This is a pleasant 63 y/o Female with status post CVA hemorrhagic type, chronic neurological deficits Sepsis, initially positive culture for Coagulase negative staph aureus, MRSA and Pseudomonas aeruginosa C Diff diarrhea, Sacral wound, asked for diverting colostomy as per mass spectrometry specialist. welding specialist following, she remains full code, is been tried to contact her son to sign consent for Diverting Colostomy. Discussed with Nurse and evaluated in her bedroom not yet able to contact her son left messages by Palliative care and by bilingual patient support caseworker. Physical Exam Vital signs: Vital Signs 07/30/18 20:00 07/31/18 00:00 07/31/18 08:00 Temperature 98.6 F 98.3 F 97.5 F L Pulse Rate 104 H 90 79 Respiratory Rate 18 18 17 Blood Pressure 181/77 H 157/71 H 155/79 H Pulse Oximetry 97 99 100 07/31/18 11:57 07/31/18 12:00 07/31/18 16:00 Temperature 97.7 F 97.7 F Pulse Rate 85 100 H Respiratory Rate 17 17 Blood Pressure 154/94 H 158/100 H 152/93 H Pulse Oximetry 100 99 Intake & Output 07/30/18 07/31/18 07/31/18 18:59 06:59 18:59 Intake Total 1510 / 1510 2501 / 2501 100 / 100 Output Total 800 / 800 1300 / 1300 Balance 710 / 710 1201 / 1201 100 / 100 Weight 62 kg Intake: IV 450 / 450 1595 / 1595 100 / 100 D5W Inj 1,000 ML @ 35 mls/hr IV 1245 / 1245 .CONT .Q24H [facility] Rx#:[id number] Maxipime Inj 2,000 MG In NS Inj 200 / 200 100 / 100 100 / 100 100 ML @ 200 mls/hr IV.SIG Q8H [facility] Rx#:[id number] Vancomycin Inj 1,000 MG In NS 250 / 250 250 / 250 Inj 250 ML @ 250 mls/hr IV.SIG Q12H [facility] Rx#:[id number] Tube Feeding 660 / 660 506 / 506 Tube Irrigant 200 / 200 Water Bolus Amount 200 / 200 400 / 400 Output: Urine Amount (Catheter) 800 / 800 1300 / 1300 Indwelling Urethral Catheter 800 / 800 1300 / 1300 Other: Date of Last Bowel Movement 09/22/18 09/24/18 Narrative: GENERAL: sleeping, wakes up for exam. good eye contact. SKIN: Warm and dry. HEAD: Normocephalic. EYES: No scleral icterus. No injection or drainage. NECK: Supple, trachea midline. No JVD. CARDIOVASCULAR: Regular rate and rhythm without murmurs, gallops, or rubs. RESPIRATORY: Breath sounds equal bilaterally. No accessory muscle use. GASTROINTESTINAL: Abdomen soft, non-tender, nondistended. Still with loose stool in stool collection bag MUSCULOSKELETAL: No cyanosis, or edema. - Urinary Catheter Management Indwelling Urethral Catheter Cath placed during this visit: yes, but has since been removed by the nurse Reason for continuing: Severe pressure ulcer/wound Insertion date: 07/12/18 Insertion time: 01:00 Removal date: 07/12/18 Removal time: 12:50 Results - Labs CBC & Chem 7: 07/29/18 04:46 08/01/18 06:23 Laboratory Results - last 24 hr 07/30/18 07/30/18 07/31/18 17:31 20:49 07:59 POC Glucose 123 H 121 H 100 07/31/18 11:53 POC Glucose 97 Assessment and Plan - Plan 63 year old female with a history of hemorrhagic CVA and severe chronic neurological deficit, admitted with diarrhea from C. Diff. //Sepsis //Pseudomonas bacteremia and MRSA bacteremia //Proteus catheter related urinary tract infection prehospital + Blood cultures, started on IV vancomycin and cefepime -ID consulted, greatly appreciate assistance and recommendations -Likely source of sepsis is stage IV coccyx ulcer -Final ID recommendations for antibiotic pending final repeat blood cultures are negative. Discussed with Dr. Cruz who feels if family continues to want aggressive treatment will need a evaluation consult for a colostomy. For diverting colostomy with Dr. Monreal pending son's consent. At this time, son would want to discuss further with his uncle and will let us know final decision in the next few days. discussed on Multidisciplinary round, not been able to get in contact with her Son to sign the consent for Diverting Colostomy. //Severe malnutritioncontinue with tube feeds //C Diff Colitis Leukocytosis PEG p.o. vancomycin Isolation //Hx of Hemorrhagic CVA Chronic severe neurological deficits Supportive Care //Chronic sacral ulcer Stage IV Wound care nurse following Wound care physician consulted, Dr. Morales performed bedside debridement of wound Patient would benefit from diverting colostomy pending son's decision //Continue Zoloft for possible underlying depression. //DVT Prophylaxis SCDs This is a pleasant 63 y/o Female with status post CVA hemorrhagic type, chronic neurological deficits Sepsis, initially positive culture for Coagulase negative staph aureus, MRSA and Pseudomonas aeruginosa C Diff diarrhea, Sacral wound, asked for diverting colostomy as per mass spectrometry specialist. welding specialist following, she remains full code, is been tried to contact her son to sign consent for Diverting Colostomy. Code Status: Full code. Discussed Condition With: Nurse. Discharge Planning: Not yet cleared by specialist for discharge.
[2018-07-31] MEDS: Dextrose 5% in Water Inj 1,000 ML IV.CONT SCH (22:18)
[2018-08-01 07:31] LABS: Blood Urea Nitrogen 18 mg/dL (7-18); Glomerular Filtration Rate Greater Than 89 mL/min (>89)
[2018-08-01] MEDS: Insulin NovoLOG Aspart Correctional Sugar Inj SQ SCH ×4 (10:22→21:23)
[2018-08-01] MEDS: hydrALAZINE 50 MG Tablet PO SCH ×3 (10:25→18:50)
[2018-08-01] MEDS: Lactobacillus Acidophilus/L. Spores Tablet G-TUBE SCH ×3 (10:25→18:50)
[2018-08-01] MEDS: Mesalamine 800 MG Tablet DR PO SCH ×3 (10:25→18:52)
[2018-08-01] MEDS: Sertraline 50 MG Tablet PO SCH (10:26)
--- NOTE | 2018-08-01 12:12 | P.PNID ---
Infectious Disease Brief Note dw Patient admitted on 07/06/2018. See Palliative care notes for details. Patient needs a diverting colostomy to heal the sacral decub ulcer which is likely source of her bacteremia. She also needs plastics evaluation once diverting colostomy addressed. At this time will hold off on plastics consult. If patients family does not want to pursue a colostomy this may or may not be necessary. Vital Signs - 24 hr 07/31/18 16:00 07/31/18 20:00 08/01/18 00:00 Temperature 97.7 F 97.5 F L 97.1 F L Pulse Rate 100 H 85 96 H Respiratory Rate 17 19 17 Blood Pressure 152/93 H 154/83 H 172/93 H Pulse Oximetry 99 99 99 08/01/18 04:00 08/01/18 08:00 Temperature 98.4 F Pulse Rate 88 87 Respiratory Rate 17 Blood Pressure 152/82 H 144/84 H Pulse Oximetry 98 Laboratory Results - last 24 hr 07/31/18 07/31/18 08/01/18 18:01 19:46 06:23 BUN 18 Creatinine 0.24 L Estimated GFR Greater than 89 POC Glucose 118 H 109 08/01/18 08/01/18 08:12 12:00 BUN Creatinine Estimated GFR POC Glucose 101 97
[2018-08-01] MEDS: Vancomycin Inj 1,000 MG in Sodium Chlor 0.9% Inj 250 ML IV.SIG SCH (14:08)
--- NOTE | 2018-08-01 16:53 | P.PNGS ---
Subjective Interval history: DAILY PROGRESS NOTE FOR SURGICAL ATTENDING, DR. DIPAK KOROMA Resting in bed Eyes open when I called her name Physical Exam Vital signs: Vital Signs 07/31/18 20:00 08/01/18 00:00 08/01/18 04:00 Temperature 97.5 F L 97.1 F L Pulse Rate 85 96 H 88 Respiratory Rate 19 17 Blood Pressure 154/83 H 172/93 H 152/82 H Pulse Oximetry 99 99 08/01/18 08:00 08/01/18 12:00 08/01/18 16:00 Temperature 98.4 F 98.2 F 97.5 F L Pulse Rate 87 90 105 H Respiratory Rate 17 17 17 Blood Pressure 144/84 H 169/97 H 169/100 H Pulse Oximetry 98 97 97 Intake & Output 07/31/18 08/01/18 08/01/18 18:59 06:59 18:59 Intake Total 450 / 450 1350 / 1350 100 / 100 Output Total 650 / 650 1500 / 1500 Balance -200 / -200 -150 / -150 100 / 100 Weight 61 kg Intake: IV 450 / 450 350 / 350 100 / 100 Maxipime Inj 2,000 MG In NS Inj 200 / 200 100 / 100 100 / 100 100 ML @ 200 mls/hr IV.SIG Q8H [facility] Rx#:[id number] Vancomycin Inj 1,000 MG In NS 250 / 250 250 / 250 Inj 250 ML @ 250 mls/hr IV.SIG Q12H [facility] Rx#:[id number] Tube Feeding 600 / 600 Tube Irrigant 400 / 400 Output: Urine 650 / 650 Urine Amount (Catheter) 1500 / 1500 Indwelling Urethral Catheter 1500 / 1500 Other: Date of Last Bowel Movement 07/31/18 Narrative: Awake; non verbal Abd: soft; non tender; PEG in place with TF Severe contractures - Urinary Catheter Management Indwelling Urethral Catheter Cath placed during this visit: yes, but has since been removed by the nurse Reason for continuing: Severe pressure ulcer/wound Insertion date: 07/12/18 Insertion time: 01:00 Removal date: 07/12/18 Removal time: 12:50 Results - Labs 08/02/18 05:26 08/05/18 04:37 Laboratory Results - last 24 hr 07/31/18 07/31/18 08/01/18 18:01 19:46 06:23 BUN 18 Creatinine 0.24 L Estimated GFR Greater than 89 POC Glucose 118 H 109 08/01/18 08/01/18 08:12 12:00 BUN Creatinine Estimated GFR POC Glucose 101 97 - Imaging Imaging: ITS Impressions Chest X-Ray 07/06/18 20:33 CONCLUSION: No acute cardiopulmonary process. Assessment and Plan - Assessment (1) Decubitus ulcer Code(s): L89.90 - Status: Acute Plan: 63 year old female s/p CVA with stage 4 decubitus ulcer in need to diverting loop colostomy -Son Henri has now decided to proceed with colostomy -Plan for diverting colostomy tomorrow afternoon -Consents on chart for patient's son to sign -Explained in detail risks and benefits---also explained that it is in the best interest of the patient that we DO NOT reversal the colostomy based on the patient's current condition -NPO after MN
--- NOTE | 2018-08-01 17:43 | P.PN ---
Subjective Interval history: This is a pleasant 63 y/o Female with status post CVA hemorrhagic type, chronic neurological deficits Sepsis, initially positive culture for Coagulase negative staph aureus, MRSA and Pseudomonas aeruginosa C Diff diarrhea, Sacral wound, asked for diverting colostomy as per supplier specialist. retail support specialist following, she remains full code, is been tried to contact her son to sign consent for Diverting Colostomy. Discussed with her Brother in the room in the presence of nurse Miss Saunders explained to him that his Sister needs the Diverting colostomy as per surgery is no a temporary measurement. while she improves her Sacral wound Then discussed with her Son through the phone explained to him and he is coming to sign the consent notified General Surgery. Physical Exam Vital signs: Vital Signs 07/31/18 20:00 08/01/18 00:00 08/01/18 04:00 Temperature 97.5 F L 97.1 F L Pulse Rate 85 96 H 88 Respiratory Rate 19 17 Blood Pressure 154/83 H 172/93 H 152/82 H Pulse Oximetry 99 99 08/01/18 08:00 08/01/18 12:00 08/01/18 16:00 Temperature 98.4 F 98.2 F 97.5 F L Pulse Rate 87 90 105 H Respiratory Rate 17 17 17 Blood Pressure 144/84 H 169/97 H 169/100 H Pulse Oximetry 98 97 97 Intake & Output 07/31/18 08/01/18 08/01/18 18:59 06:59 18:59 Intake Total 450 / 450 1350 / 1350 100 / 100 Output Total 650 / 650 1500 / 1500 Balance -200 / -200 -150 / -150 100 / 100 Weight 61 kg Intake: IV 450 / 450 350 / 350 100 / 100 Maxipime Inj 2,000 MG In NS Inj 200 / 200 100 / 100 100 / 100 100 ML @ 200 mls/hr IV.SIG Q8H [facility] Rx#:[id number] Vancomycin Inj 1,000 MG In NS 250 / 250 250 / 250 Inj 250 ML @ 250 mls/hr IV.SIG Q12H [facility] Rx#:[id number] Tube Feeding 600 / 600 Tube Irrigant 400 / 400 Output: Urine 650 / 650 Urine Amount (Catheter) 1500 / 1500 Indwelling Urethral Catheter 1500 / 1500 Other: Date of Last Bowel Movement 07/31/18 Narrative: GENERAL: sleeping, wakes up for exam. good eye contact. SKIN: Warm and dry. HEAD: Normocephalic. EYES: No scleral icterus. No injection or drainage. NECK: Supple, trachea midline. No JVD. CARDIOVASCULAR: Regular rate and rhythm without murmurs, gallops, or rubs. RESPIRATORY: Breath sounds equal bilaterally. No accessory muscle use. GASTROINTESTINAL: Abdomen soft, non-tender, nondistended. Still with loose stool in stool collection bag MUSCULOSKELETAL: No cyanosis, or edema. - Urinary Catheter Management Indwelling Urethral Catheter Cath placed during this visit: yes, but has since been removed by the nurse Reason for continuing: Severe pressure ulcer/wound Insertion date: 07/12/18 Insertion time: 01:00 Removal date: 07/12/18 Removal time: 12:50 Results - Labs CBC & Chem 7: 07/29/18 04:46 08/01/18 06:23 Laboratory Results - last 24 hr 07/31/18 07/31/18 08/01/18 18:01 19:46 06:23 BUN 18 Creatinine 0.24 L Estimated GFR Greater than 89 POC Glucose 118 H 109 08/01/18 08/01/18 08:12 12:00 BUN Creatinine Estimated GFR POC Glucose 101 97 Assessment and Plan - Plan 63 year old female with a history of hemorrhagic CVA and severe chronic neurological deficit, admitted with diarrhea from C. Diff. //Sepsis //Pseudomonas bacteremia and MRSA bacteremia //Proteus catheter related urinary tract infection prehospital + Blood cultures, started on IV vancomycin and cefepime -ID consulted, greatly appreciate assistance and recommendations -Likely source of sepsis is stage IV coccyx ulcer -Final ID recommendations for antibiotic pending final repeat blood cultures are negative. Discussed with Dr. Cruz who feels if family continues to want aggressive treatment will need a evaluation consult for a colostomy. For diverting colostomy with Dr. Monreal pending son's consent. At this time, son would want to discuss further with his uncle and will let us know final decision in the next few days. discussed on Multidisciplinary round, not been able to get in contact with her Son to sign the consent for Diverting Colostomy. her son agree with Diverting Colostomy and won't be a temporary measurement. //Severe malnutritioncontinue with tube feeds //C Diff Colitis Leukocytosis PEG p.o. vancomycin Isolation //Hx of Hemorrhagic CVA Chronic severe neurological deficits Supportive Care //Chronic sacral ulcer Stage IV Wound care nurse following Wound care physician consulted, Dr. Morales performed bedside debridement of wound Patient would benefit from diverting colostomy pending son's decision //Continue Zoloft for possible underlying depression. //DVT Prophylaxis SCDs This is a pleasant 63 y/o Female with status post CVA hemorrhagic type, chronic neurological deficits Sepsis, initially positive culture for Coagulase negative staph aureus, MRSA and Pseudomonas aeruginosa C Diff diarrhea, Sacral wound, asked for diverting colostomy as per supplier specialist. retail support specialist following, she remains full code, is been tried to contact her son to sign consent for Diverting Colostomy. Code Status: Full code Discussed Condition With: Nurse Miss Saunders, MDR, Her Brother and Her son. Discharge Planning: Not yet cleared by specialist for discharge.
[2018-08-02] MEDS: Vancomycin Inj 1,000 MG in Sodium Chlor 0.9% Inj 250 ML IV.SIG SCH ×3 (02:31→13:18)
[2018-08-02] MEDS: Dextrose 5% in Water Inj 1,000 ML IV.CONT SCH (02:38)
[2018-08-02] MEDS ORDERED: Chlorhexidine Gluconate 2% 1 Pack (2 Cloths) TOPICAL ONE (02:49)
[2018-08-02 07:07] LABS: Baso % (Auto) 1.3 % (0.0-2.0); Eos # (Auto) 0.3 th/mm3 (0.0-0.4); Eos % (Auto) 9.7 % (0.0-4.0); Hemoglobin 7.7 gm/dL (11.6-15.3); Lymph # (Auto) 1.1 th/mm3 (1.0-4.8); Lymph % (Auto) 32.7 % (9.0-44.0); Mean Corpuscular HGB Conc 32.2 % (32.0-36.0); Mean Corpuscular Volume 83.8 fL (80.0-100.0); Mean Platelet Volume 9.5 fL (7.0-11.0); Mono # (Auto) 0.6 th/mm3 (0.0-0.9); Mono % (Auto) 16.9 % (0.0-8.0); Neut # (Auto) 1.3 th/mm3 (1.8-7.7); Neut % (Auto) 39.4 % (16.0-70.0); Platelet Count 198 th/mm3 (150-450); Red Blood Count 2.87 mil/mm3 (4.00-5.30); White Blood Count 3.3 th/mm3 (4.0-11.0)
[2018-08-02 07:11] LABS: INR 1.2 Ratio; Prothrombin Time 12.6 sec (9.8-11.6)
[2018-08-02] MEDS: Insulin NovoLOG Aspart Correctional Sugar Inj SQ SCH ×4 (07:44→21:57)
[2018-08-02] MEDS: Lactobacillus Acidophilus/L. Spores Tablet G-TUBE SCH ×3 (09:41→17:31)
[2018-08-02] MEDS: hydrALAZINE 50 MG Tablet PO SCH ×3 (09:41→17:30)
[2018-08-02] MEDS: Mesalamine 800 MG Tablet DR PO SCH ×3 (09:41→17:31)
[2018-08-02] MEDS: Sertraline 50 MG Tablet PO SCH (09:42)
[2018-08-02] MEDS ORDERED: Pharmacy Ordered Lab Info OTHER ONE (11:45)
[2018-08-02 12:54] LABS: Anion Gap 6 meq/L (5-15); Blood Urea Nitrogen 20 mg/dL (7-18); Calcium 8.5 mg/dL (8.5-10.1); Carbon Dioxide 28.1 meq/L (21.0-32.0); Chloride 107 meq/L (98-107); Glomerular Filtration Rate Greater Than 89 mL/min (>89); Glucose,Random 86 mg/dL (74-106); Potassium 3.7 meq/L (3.5-5.1); Sodium 141 meq/L (136-145)
[2018-08-02 12:56] LABS: Vancomycin,Trough 23.9 mcg/mL (5.0-10.0)
--- NOTE | 2018-08-02 13:30 | P.PNID ---
Subjective Remarks: Ms. Miranda is a 63-year-old -Welsh female with past medical history of hypertension, CVA with residual hemiparesis as well as aphasia as well as history of C. difficile who presents to the emergency room from a senior living facility due to hypotension with a blood pressure of 72/58. Patient also had bandemia as well as elevated white count on outpatient labs. Patient is unable to provide any history as she is nonverbal from her baseline aphasia. Per records patient was diagnosed with C. difficile on July 06, 2018 and started on Flagyl but due to worsening hypotension and concern for sepsis she was admitted to the hospital. On arrival her blood pressure was 85/59, heart rate 94, O2 sats 98% on room air and she was afebrile. Her creatinine is 1.46 previously 0.45 on March 20, 2018. Her lactic acid was elevated 2.3. Her WBC was normal however she had significant bandemia of 29% her UA was positive and cultures show gram-negative rods. Blood cultures done on admission are positive for coag negative staph, MRSA as well as pseudomonas aeruginosa. Sacral decubitus wound is also positive for MRSA as well as pseudomonas aeruginosa. Patient received a dose of Cipro and Flagyl in the emergency room. Infectious diseases consulted for evaluation and management of sepsis, gram- positive bacteremia, gram-negative bacteremia, gram-negative UTI, possibly infected sacral decubitus wound, C. difficile flare. At the time of my evaluation patient is on a regular floor in room 1718. Patient's bedside nurse informs me that she is nonverbal minimally tracks with her eye but otherwise just lays in bed with no emotional response either. Patient has a Flexi-Seal bag due to ongoing diarrhea. She also has a sacral decubitus wound which appears to be tunneled down to the bone. She is dark skin so is difficult to casting supervisor if she has surrounding cellulitis. But overall the wound base does not appear to be fairly light red and beefy. No obvious discharge noted. Patient also has a PEG tube in place with no obvious evidence of infection. She appears to be tolerating her tube feeds based on my discussion with the nurse. Patient has chronic contractors of her extremities and has to be turned frequently Overnight events reviewed. No fever No rash Diarrhea Opens eyes, Nods yes no to questions appropriately. Flat affect. Antibiotics: Cefepime IV Vanco IV Vanco oral Lines: Lines ok Past Medical History: reviewed Allergies/Adverse Reactions: Allergies No Known Allergies Allergy (Verified 07/06/18 20:47) Objective Vital Signs 08/01/18 16:00 08/01/18 20:00 08/02/18 00:00 Temperature 97.5 F L 99 F 99.0 F Pulse Rate 105 H 113 H 97 H Respiratory Rate 17 18 18 Blood Pressure 169/100 H 168/98 H 122/81 Pulse Oximetry 97 99 100 08/02/18 08:00 08/02/18 12:00 Temperature 98.7 F 97.9 F Pulse Rate 88 89 Respiratory Rate 17 17 Blood Pressure 139/82 169/96 H Pulse Oximetry 100 100 Intake & Output 08/01/18 08/02/18 08/02/18 18:59 06:59 18:59 Intake Total 350 / 350 450 / 450 100 / 100 Output Total 800 / 800 Balance -450 / -450 450 / 450 100 / 100 Weight 62.3 kg Intake: IV 350 / 350 450 / 450 100 / 100 Maxipime Inj 2,000 MG In NS Inj 100 / 100 200 / 200 100 / 100 100 ML @ 200 mls/hr IV.SIG Q8H [facility] Rx#:[id number] Vancomycin Inj 1,000 MG In NS 250 / 250 250 / 250 Inj 250 ML @ 250 mls/hr IV.SIG Q12H [facility] Rx#:[id number] Output: Urine 800 / 800 Other: Date of Last Bowel Movement 07/31/18 08/02/18 08/02/18 Lab - Hematology Results 08/02/18 05:26 WBC 3.3 L RBC 2.87 L Hgb 7.7 L Hct 24.0 L MCV 83.8 MCH 27.0 MCHC 32.2 RDW 22.0 H Plt Count 198 MPV 9.5 Neut % (Auto) 39.4 Lymph % (Auto) 32.7 [place] % (Auto) 16.9 H Eos % (Auto) 9.7 H Baso % (Auto) 1.3 Neut # (Auto) 1.3 L Lymph # (Auto) 1.1 [place] # (Auto) 0.6 Eos # (Auto) 0.3 Baso # (Auto) 0.0 WBC Differential . Differential Comment Auto diff final Lab - Chemistry Results 07/31/18 07/31/18 08/01/18 18:01 19:46 06:23 Sodium Potassium Chloride Carbon Dioxide Anion Gap BUN 18 Creatinine 0.24 L Estimated GFR Greater than 89 POC Glucose 118 H 109 Random Glucose Calcium 08/01/18 08/01/18 08/01/18 08:12 12:00 18:53 Sodium Potassium Chloride Carbon Dioxide Anion Gap BUN Creatinine Estimated GFR POC Glucose 101 97 114 H Random Glucose Calcium 08/01/18 08/02/18 08/02/18 21:23 07:38 11:51 Sodium 141 Potassium 3.7 Chloride 107 Carbon Dioxide 28.1 Anion Gap 6 BUN 20 H Creatinine 0.32 L Estimated GFR Greater than 89 POC Glucose 110 96 Random Glucose 86 Calcium 8.5 08/02/18 11:59 Sodium Potassium Chloride Carbon Dioxide Anion Gap BUN Creatinine Estimated GFR POC Glucose 103 Random Glucose Calcium Imaging: ITS Impressions Chest X-Ray 07/06/18 20:33 CONCLUSION: No acute cardiopulmonary process. Physical Exam: GENERAL: Thin built, cachectic appearing, chronically ill-appearing female patient SKIN: Cool and dry, no generalized rash HEAD: Atraumatic. Normocephalic. No temporal or scalp tenderness. EYES: Pupils equal round and reactive. Scleral icterus. No injection or drainage. No petechia ENT: Gross examination nothing abnormal detected NECK: Trachea midline. Supple, nontender, no meningeal signs. CARDIOVASCULAR: HS audible. RESPIRATORY: Clear to auscultation bilaterally. GASTROINTESTINAL: Abdomen soft nontender. PEG tube site okay. MUSCULOSKELETAL: Extremities with contractures noted. NEUROLOGICAL: Opens her eyes spontaneously, tracks with her eyes. No emotions on her face. Sacral decubitus with bone palpable but bone not exposed, periosteum intact. Ulcer base appears to be pink with no obvious purulence noted. No surrounding erythema noted. The patient is dark skin. dw Wound Care . Psych difficult to assess. IV line sites ok. Assessment and Plan - Plan Possible sepsis present on admission patient is extremely hypoalbuminemic and malnourished may not mount typical SIRS response. Has significant bandemia and lactic acidosis. Pseudomonas aeruginosa bacteremia MRSA bacteremia Coag negative staph bacteremia Gram-negative UTI has a Cruz in place.? Catheter associated UTI with catheter likely present on admission. Sacral decubitus ulcer with tunneling likely osteomyelitis could be a possible source of infection. C. difficile infection with ongoing large-volume diarrhea Recommendations: Continue cefepime IV Continue vancomycin IV target trough 15-20. Continue oral vancomycin for C. difficile. Continue Asacol for post infectious Inflammatory component. dw handy worker agree bone not exposed. No obvious evidence of osteomyelitis. At this point no plastics consult needed. Continue Wound care. After the procedure all IV antibiotics can be stopped and I would recommend just treating with oral vanco for 3 weeks (Vanco 125 mg po q6hrs). Discussed with LINSEY
--- NOTE | 2018-08-02 16:30 | P.PN ---
Subjective Interval history: This is a pleasant 63 y/o Female with status post CVA hemorrhagic type, chronic neurological deficits Sepsis, initially positive culture for Coagulase negative staph aureus, MRSA and Pseudomonas aeruginosa C Diff diarrhea, Sacral wound, asked for diverting colostomy as per histology specialist. high school library media specialist following, she remains full code, is been tried to contact her son to sign consent for Diverting Colostomy. Discussed with her Brother in the room in the presence of nurse Miss Saunders explained to him that his Sister needs the Diverting colostomy as per surgery is no a temporary measurement. while she improves her Sacral wound Then discussed with her Son through the phone explained to him and he is coming to sign the consent notified General Surgery. 08/02: discussed with nurse early in am, wound care in the room to assess the sacral ulcer, seen by ID specialist today with diagnosis of Sepsis possible, Pseudomonas aeruginosa bacteremia, MRSA bacteremia, Coag negative staph bacteremia, Gram negative UTI has a Cruz in place, Catheter associated UTI, with catheter likely present on admission Sacral decubitus ulcer with tunneling likely osteomyelitis could be possible source of infection, C Diff infection with large volume of diarrhea, recommended for Cefepime IV to continue, continue Vancomycin IV, Oral Vancomycin for C Diff, Asacol for post infectious inflammatory component, wound care, after infection treatment recommend just treating with oral vanco for 3 weeks (Vanco 125 mg po q6hrs). Physical Exam Vital signs: Vital Signs 08/01/18 20:00 08/02/18 00:00 08/02/18 08:00 Temperature 99 F 99.0 F 98.7 F Pulse Rate 113 H 97 H 88 Respiratory Rate 18 18 17 Blood Pressure 168/98 H 122/81 139/82 Pulse Oximetry 99 100 100 08/02/18 12:00 08/02/18 16:00 Temperature 97.9 F 98.1 F Pulse Rate 89 95 H Respiratory Rate 17 17 Blood Pressure 169/96 H 163/102 H Pulse Oximetry 100 100 Intake & Output 08/01/18 08/02/18 08/02/18 18:59 06:59 18:59 Intake Total 350 / 350 450 / 450 100 / 100 Output Total 800 / 800 Balance -450 / -450 450 / 450 100 / 100 Weight 62.3 kg Intake: IV 350 / 350 450 / 450 100 / 100 Maxipime Inj 2,000 MG In NS Inj 100 / 100 200 / 200 100 / 100 100 ML @ 200 mls/hr IV.SIG Q8H [facility] Rx#:[id number] Vancomycin Inj 1,000 MG In NS 250 / 250 250 / 250 Inj 250 ML @ 250 mls/hr IV.SIG Q12H [facility] Rx#:[id number] Output: Urine 800 / 800 Other: Date of Last Bowel Movement 07/31/18 08/02/18 08/02/18 Narrative: GENERAL: sleeping, wakes up for exam. good eye contact. SKIN: Warm and dry. HEAD: Normocephalic. EYES: No scleral icterus. No injection or drainage. NECK: Supple, trachea midline. No JVD. CARDIOVASCULAR: Regular rate and rhythm without murmurs, gallops, or rubs. RESPIRATORY: Breath sounds equal bilaterally. No accessory muscle use. GASTROINTESTINAL: Abdomen soft, non-tender, nondistended. Still with loose stool in stool collection bag MUSCULOSKELETAL: No cyanosis, or edema. - Urinary Catheter Management Indwelling Urethral Catheter Cath placed during this visit: yes, but has since been removed by the nurse Reason for continuing: Acute urinary retention Insertion date: 07/12/18 Insertion time: 01:00 Removal date: 07/12/18 Removal time: 12:50 Results - Labs CBC & Chem 7: 08/02/18 05:26 08/02/18 11:51 Laboratory Results - last 24 hr 08/01/18 08/01/18 08/02/18 18:53 21:23 05:26 WBC 3.3 L RBC 2.87 L Hgb 7.7 L Hct 24.0 L MCV 83.8 MCH 27.0 MCHC 32.2 RDW 22.0 H Plt Count 198 MPV 9.5 Neut % (Auto) 39.4 Lymph % (Auto) 32.7 [place] % (Auto) 16.9 H Eos % (Auto) 9.7 H Baso % (Auto) 1.3 Neut # (Auto) 1.3 L Lymph # (Auto) 1.1 [place] # (Auto) 0.6 Eos # (Auto) 0.3 Baso # (Auto) 0.0 WBC Differential . Differential Comment Auto diff final PT INR Sodium Potassium Chloride Carbon Dioxide Anion Gap BUN Creatinine Estimated GFR POC Glucose 114 H 110 Random Glucose Calcium Vancomycin Trough Blood Type Blood Type Recheck Antibody Screen MTS Gel Crossmatch 08/02/18 08/02/18 08/02/18 05:26 05:26 07:38 WBC RBC Hgb Hct MCV MCH MCHC RDW Plt Count MPV Neut % (Auto) Lymph % (Auto) [place] % (Auto) Eos % (Auto) Baso % (Auto) Neut # (Auto) Lymph # (Auto) [place] # (Auto) Eos # (Auto) Baso # (Auto) WBC Differential Differential Comment PT 12.6 H INR 1.2 Sodium Potassium Chloride Carbon Dioxide Anion Gap BUN Creatinine Estimated GFR POC Glucose 96 Random Glucose Calcium Vancomycin Trough Blood Type O Positive Blood Type Recheck Required Antibody Screen Negative MTS Gel Crossmatch 08/02/18 08/02/18 08/02/18 09:30 11:51 11:59 WBC RBC Hgb Hct MCV MCH MCHC RDW Plt Count MPV Neut % (Auto) Lymph % (Auto) [place] % (Auto) Eos % (Auto) Baso % (Auto) Neut # (Auto) Lymph # (Auto) [place] # (Auto) Eos # (Auto) Baso # (Auto) WBC Differential Differential Comment PT INR Sodium 141 Potassium 3.7 Chloride 107 Carbon Dioxide 28.1 Anion Gap 6 BUN 20 H Creatinine 0.32 L Estimated GFR Greater than 89 POC Glucose 103 Random Glucose 86 Calcium 8.5 Vancomycin Trough 23.9 H Blood Type Blood Type Recheck Antibody Screen MTS Gel Crossmatch See Detail Assessment and Plan - Plan 63 year old female with a history of hemorrhagic CVA and severe chronic neurological deficit, admitted with diarrhea from C. Diff. //Sepsis //Pseudomonas bacteremia and MRSA bacteremia //Proteus catheter related urinary tract infection prehospital + Blood cultures, started on IV vancomycin and cefepime -ID consulted, greatly appreciate assistance and recommendations -Likely source of sepsis is stage IV coccyx ulcer -Final ID recommendations for antibiotic pending final repeat blood cultures are negative. 08/02: Seen by ID specialist today with diagnosis of Sepsis possible, Pseudomonas aeruginosa bacteremia, MRSA bacteremia, Coag negative staph bacteremia, Gram negative UTI has a Cruz in place, Catheter associated UTI, with catheter likely present on admission Sacral decubitus ulcer with tunneling likely osteomyelitis could be possible source of infection, C Diff infection with large volume of diarrhea, recommended for Cefepime IV to continue, continue Vancomycin IV, Oral Vancomycin for C Diff, Asacol for post infectious inflammatory component, wound care, after infection treatment recommend just treating with oral vanco for 3 weeks (Vanco 125 mg po q6hrs). //Severe malnutritioncontinue with tube feeds //C Diff Colitis Leukocytosis PEG p.o. vancomycin Isolation //Hx of Hemorrhagic CVA Chronic severe neurological deficits Supportive Care //Chronic sacral ulcer Stage IV Wound care nurse following Wound care physician consulted, Dr. Morales performed bedside debridement of wound Patient would benefit from diverting colostomy pending son's decision //Continue Zoloft for possible underlying depression. //DVT Prophylaxis SCDs This is a pleasant 63 y/o Female with status post CVA hemorrhagic type, chronic neurological deficits Sepsis, initially positive culture for Coagulase negative staph aureus, MRSA and Pseudomonas aeruginosa C Diff diarrhea, Sacral wound, asked for diverting colostomy as per histology specialist. high school library media specialist following, she remains full code, is been tried to contact her son signed the consent for Diverting colostomy. Code Status: Full code. Discussed Condition With: patient and nurse. Discharge Planning: Not yet cleared by specialist for discharge.
--- NOTE | 2018-08-02 17:43 | P.PNWCN ---
Wound Care Nurse Consult Description: Patient seen for follow up of pressure injury to coccyx Recommendation: Please follow written orders from Doctor Andrew for wound care. Wound/Pressure Injury - Patient Status Premedicated for Pain Prior to Dressing Change: No - Wound Coccyx Wound Staging: Stage IV Wound Assessment: Ongoing Wound Type: Pressure Injury Is This a Chronic Wound: Yes Requested from Provider a Wound Care Consult: No (Wound care team follows patient) Length: 5.2 (cm) Width: 3.5 (cm) Depth: 0.5 (cm) Wound Bed Appearance: [place], Red Wound Bed Appearance: Wound bed presents with ~70% red non granulation tissue,~20 % bone and ~10% adipose . Wound drainage is moderate Surrounding Tissue Appearance: [place] Surrounding Tissue Temperature: Warm Drainage Description: Serosanguinous Drainage Amount: Moderate Drainage Odor: No Odor Dressing Status: Dry & Intact, Changed Cleansing Solution: Saline Topical: skin protectant cream Wound Packing Type: Collagen Primary Dressing: puracol/ maxsorb ag Cover Dressing: primapore Wound Dressing Change Date: 07/27/18 Wound Margin Description: Wound margins are 100% thick epibole circumferentially. sacrum ulcer Surrounding Tissue Appearance: Erythema - Additional Information Patient seen on for a stage IV pressure injury to coccyx .Patient is a total assist with the assistance of [facility] nursing students and conventional underwriter.Turned patient to R side and removed bordered gauze dressing and maxorb AG dressing in place to sacrococcygeal area to reveal open wound to coccyx. Wound measurements and descriptions are noted above. Cleaned wound with normal saline and patted dry. Periwound presents with improving scattered partial thickness skin loss that is moisture related. Patient has a rectal bag in place for fecal management. Feces noted in rectal bag present as liquid and brown.Packed wound to coccyx loosely with puracol AG followed by Maxorb extra AG and applied Calazime skin protectant paste to periwound. Skin barrier film was then applied to intact skin before securing bordered gauze in place over wound. Incision - Patient Status Premedicated for Pain Prior to Dressing Change: No
[2018-08-03] MEDS: Dextrose 5% in Water Inj 1,000 ML IV.CONT SCH ×3 (01:37→23:05)
[2018-08-03 07:17] LABS: Blood Urea Nitrogen 14 mg/dL (7-18); Glomerular Filtration Rate Greater Than 89 mL/min (>89)
[2018-08-03 07:19] LABS: Vancomycin,Random 10.2 Comment
[2018-08-03] MEDS: Insulin NovoLOG Aspart Correctional Sugar Inj SQ SCH ×4 (08:46→20:24)
[2018-08-03] MEDS: Sertraline 50 MG Tablet PO SCH (08:49)
[2018-08-03] MEDS: Mesalamine 800 MG Tablet DR PO SCH ×3 (08:49→17:17)
[2018-08-03] MEDS: hydrALAZINE 50 MG Tablet PO SCH ×3 (08:49→17:17)
[2018-08-03] MEDS: Lactobacillus Acidophilus/L. Spores Tablet G-TUBE SCH ×3 (08:49→17:17)
[2018-08-03] MEDS: Vancomycin Inj 1,000 MG in Sodium Chlor 0.9% Inj 250 ML IV.SIG SCH (12:19)
--- NOTE | 2018-08-03 14:29 | P.PN ---
Subjective Interval history: This is a pleasant 63 y/o Female with status post CVA hemorrhagic type, chronic neurological deficits Sepsis, initially positive culture for Coagulase negative staph aureus, MRSA and Pseudomonas aeruginosa C Diff diarrhea, Sacral wound, asked for diverting colostomy as per medical record retrieval specialist. recruiter specialist following, she remains full code, is been tried to contact her son to sign consent for Diverting Colostomy. Discussed with her Brother in the room in the presence of nurse Miss Saunders explained to him that his Sister needs the Diverting colostomy as per surgery is no a temporary measurement. while she improves her Sacral wound Then discussed with her Son through the phone explained to him and he is coming to sign the consent notified General Surgery. 08/02: discussed with nurse early in am, wound care in the room to assess the sacral ulcer, seen by ID specialist today with diagnosis of Sepsis possible, Pseudomonas aeruginosa bacteremia, MRSA bacteremia, Coag negative staph bacteremia, Gram negative UTI has a Cruz in place, Catheter associated UTI, with catheter likely present on admission Sacral decubitus ulcer with tunneling likely osteomyelitis could be possible source of infection, C Diff infection with large volume of diarrhea, recommended for Cefepime IV to continue, continue Vancomycin IV, Oral Vancomycin for C Diff, Asacol for post infectious inflammatory component, wound care, after infection treatment recommend just treating with oral vanco for 3 weeks (Vanco 125 mg po q6hrs). 08/03: seen in her bedroom at this time Wound care ready to work with the patient , she will have Diverting Colostomy for next Monday08/07/18 no nausea or vomit. Physical Exam Vital signs: Vital Signs 08/02/18 16:00 08/02/18 20:00 08/03/18 00:00 Temperature 98.1 F 98.3 F 98.3 F Pulse Rate 95 H 93 H 85 Respiratory Rate 17 16 16 Blood Pressure 163/102 H 175/94 H 157/75 H Pulse Oximetry 100 99 97 08/03/18 08:00 08/03/18 12:00 Temperature 98.3 F 98.7 F Pulse Rate 96 H 98 H Respiratory Rate 18 18 Blood Pressure 154/101 H 120/65 Pulse Oximetry 100 99 Intake & Output 08/02/18 08/03/18 08/03/18 18:59 06:59 18:59 Intake Total 200 / 200 580 / 580 350 / 350 Output Total 1000 / 1000 1200 / 1200 Balance -800 / -800 -620 / -620 350 / 350 Weight 62.3 kg Intake: IV 200 / 200 100 / 100 350 / 350 Maxipime Inj 2,000 MG In NS Inj 200 / 200 100 / 100 100 / 100 100 ML @ 200 mls/hr IV.SIG Q8H [facility] Rx#:[id number] Vancomycin Inj 1,000 MG In NS 250 / 250 Inj 250 ML @ 250 mls/hr IV.SIG Q18H [facility] Rx#:[id number] Oral 480 / 480 Output: Urine 1000 / 1000 Urine Amount (Catheter) 1200 / 1200 Indwelling Urethral Catheter 1200 / 1200 Other: Date of Last Bowel Movement 08/02/18 Narrative: GENERAL: sleeping, wakes up for exam. good eye contact. SKIN: Warm and dry. HEAD: Normocephalic. EYES: No scleral icterus. No injection or drainage. NECK: Supple, trachea midline. No JVD. CARDIOVASCULAR: Regular rate and rhythm without murmurs, gallops, or rubs. RESPIRATORY: Breath sounds equal bilaterally. No accessory muscle use. GASTROINTESTINAL: Abdomen soft, non-tender, nondistended. Still with loose stool in stool collection bag MUSCULOSKELETAL: No cyanosis, or edema. - Urinary Catheter Management Indwelling Urethral Catheter Cath placed during this visit: yes, but has since been removed by the nurse Reason for continuing: Acute urinary retention Insertion date: 07/12/18 Insertion time: 01:00 Removal date: 07/12/18 Removal time: 12:50 Results - Labs CBC & Chem 7: 08/02/18 05:26 08/03/18 05:14 Laboratory Results - last 24 hr 08/02/18 08/02/18 08/03/18 16:24 21:51 05:14 BUN 14 Creatinine 0.32 L Estimated GFR Greater than 89 POC Glucose 82 109 Random Vancomycin 10.2 08/03/18 08/03/18 07:46 11:16 BUN Creatinine Estimated GFR POC Glucose 97 104 Random Vancomycin Assessment and Plan - Plan 63 year old female with a history of hemorrhagic CVA and severe chronic neurological deficit, admitted with diarrhea from C. Diff. //Sepsis //Pseudomonas bacteremia and MRSA bacteremia //Proteus catheter related urinary tract infection prehospital + Blood cultures, started on IV vancomycin and cefepime -ID consulted, greatly appreciate assistance and recommendations -Likely source of sepsis is stage IV coccyx ulcer -Final ID recommendations for antibiotic pending final repeat blood cultures are negative. 08/02: Seen by ID specialist today with diagnosis of Sepsis possible, Pseudomonas aeruginosa bacteremia, MRSA bacteremia, Coag negative staph bacteremia, Gram negative UTI has a Cruz in place, Catheter associated UTI, with catheter likely present on admission Sacral decubitus ulcer with tunneling likely osteomyelitis could be possible source of infection, C Diff infection with large volume of diarrhea, recommended for Cefepime IV to continue, continue Vancomycin IV, Oral Vancomycin for C Diff, Asacol for post infectious inflammatory component, wound care, after infection treatment recommend just treating with oral vanco for 3 weeks (Vanco 125 mg po q6hrs). Diverting Colostomy planned for 08/07/18 //Severe malnutritioncontinue with tube feeds //C Diff Colitis Leukocytosis PEG p.o. vancomycin Isolation //Hx of Hemorrhagic CVA Chronic severe neurological deficits Supportive Care //Chronic sacral ulcer Stage IV Wound care nurse following Wound care physician consulted, Dr. Morales performed bedside debridement of wound will have Diverting colostomy planned for 08/07/18 //Continue Zoloft for possible underlying depression. //DVT Prophylaxis SCDs This is a pleasant 63 y/o Female with status post CVA hemorrhagic type, chronic neurological deficits Sepsis, initially positive culture for Coagulase negative staph aureus, MRSA and Pseudomonas aeruginosa C Diff diarrhea, Sacral wound, asked for diverting colostomy as per medical record retrieval specialist. recruiter specialist following, she remains full code. Code Status: Full code. Discussed Condition With: Patient and nurse. Discharge Planning: Not yet cleared by specialist for discharge.
[2018-08-04] MEDS: Vancomycin Inj 1,000 MG in Sodium Chlor 0.9% Inj 250 ML IV.SIG SCH (07:25)
[2018-08-04] MEDS: Insulin NovoLOG Aspart Correctional Sugar Inj SQ SCH ×4 (08:19→21:34)
[2018-08-04] MEDS: hydrALAZINE 50 MG Tablet PO SCH ×3 (09:31→17:26)
[2018-08-04] MEDS: Lactobacillus Acidophilus/L. Spores Tablet G-TUBE SCH ×3 (09:32→17:26)
[2018-08-04] MEDS: Sertraline 50 MG Tablet PO SCH (09:32)
[2018-08-04] MEDS: Mesalamine 800 MG Tablet DR PO SCH ×3 (09:32→17:25)
--- NOTE | 2018-08-04 13:03 | P.PN ---
Subjective Interval history: This is a pleasant 63 y/o Female with status post CVA hemorrhagic type, chronic neurological deficits Sepsis, initially positive culture for Coagulase negative staph aureus, MRSA and Pseudomonas aeruginosa C Diff diarrhea, Sacral wound, asked for diverting colostomy as per military technology specialist. early childhood education specialist following, she remains full code, is been tried to contact her son to sign consent for Diverting Colostomy. Discussed with her Brother in the room in the presence of nurse Miss Saunders explained to him that his Sister needs the Diverting colostomy as per surgery is no a temporary measurement. while she improves her Sacral wound Then discussed with her Son through the phone explained to him and he is coming to sign the consent notified General Surgery. 08/02: discussed with nurse early in am, wound care in the room to assess the sacral ulcer, seen by ID specialist today with diagnosis of Sepsis possible, Pseudomonas aeruginosa bacteremia, MRSA bacteremia, Coag negative staph bacteremia, Gram negative UTI has a Cruz in place, Catheter associated UTI, with catheter likely present on admission Sacral decubitus ulcer with tunneling likely osteomyelitis could be possible source of infection, C Diff infection with large volume of diarrhea, recommended for Cefepime IV to continue, continue Vancomycin IV, Oral Vancomycin for C Diff, Asacol for post infectious inflammatory component, wound care, after infection treatment recommend just treating with oral vanco for 3 weeks (Vanco 125 mg po q6hrs). 08/03: seen in her bedroom at this time Wound care ready to work with the patient , she will have Diverting Colostomy for next Monday08/07/18. 08/04: Seen in her bedroom no new issues, discussed with nurse Miss Alvarez, no nausea, vomit or diarrhea. Physical Exam Vital signs: Vital Signs 08/03/18 16:00 08/03/18 20:00 08/04/18 00:00 Temperature 98.2 F 99.1 F 98.7 F Pulse Rate 96 H 89 90 Respiratory Rate 18 19 19 Blood Pressure 171/94 H 153/93 H 169/95 H Pulse Oximetry 100 100 98 08/04/18 04:00 08/04/18 08:00 08/04/18 12:00 Temperature 98.7 F 97.6 F 98.3 F Pulse Rate 108 H 86 88 Respiratory Rate 17 18 18 Blood Pressure 168/86 H 187/93 H 174/105 H Pulse Oximetry 92 L 100 100 Intake & Output 08/03/18 08/04/18 08/04/18 18:59 06:59 18:59 Intake Total 450 / 450 1100 / 1100 350 / 350 Output Total 1350 / 1350 1300 / 1300 Balance -900 / -900 -200 / -200 350 / 350 Weight 62.3 kg Intake: IV 450 / 450 1100 / 1100 350 / 350 D5W Inj 1,000 ML @ 35 mls/hr IV 1000 / 1000 .CONT .Q24H [facility] Rx#:[id number] Maxipime Inj 2,000 MG In NS Inj 200 / 200 100 / 100 100 / 100 100 ML @ 200 mls/hr IV.SIG Q8H [facility] Rx#:[id number] Vancomycin Inj 1,000 MG In NS 250 / 250 250 / 250 Inj 250 ML @ 250 mls/hr IV.SIG Q18H [facility] Rx#:[id number] Oral 0 / 0 Output: Stool 500 / 500 Urine Amount (Catheter) 850 / 850 1300 / 1300 Indwelling Urethral Catheter 850 / 850 1300 / 1300 Other: Date of Last Bowel Movement 08/04/18 Narrative: GENERAL: sleeping, wakes up for exam. good eye contact. SKIN: Warm and dry. HEAD: Normocephalic. EYES: No scleral icterus. No injection or drainage. NECK: Supple, trachea midline. No JVD. CARDIOVASCULAR: Regular rate and rhythm without murmurs, gallops, or rubs. RESPIRATORY: Breath sounds equal bilaterally. No accessory muscle use. GASTROINTESTINAL: Abdomen soft, non-tender, nondistended. Still with loose stool in stool collection bag MUSCULOSKELETAL: No cyanosis, or edema. - Urinary Catheter Management Indwelling Urethral Catheter Cath placed during this visit: yes, but has since been removed by the nurse Reason for continuing: Acute urinary retention Insertion date: 07/12/18 Insertion time: 01:00 Removal date: 07/12/18 Removal time: 12:50 Results - Labs CBC & Chem 7: 08/02/18 05:26 08/03/18 05:14 Laboratory Results - last 24 hr 08/03/18 08/03/18 08/04/18 16:11 20:21 07:56 POC Glucose 110 136 H 97 08/04/18 11:09 POC Glucose 97 Assessment and Plan - Plan 63 year old female with a history of hemorrhagic CVA and severe chronic neurological deficit, admitted with diarrhea from C. Diff. //Sepsis //Pseudomonas bacteremia and MRSA bacteremia //Proteus catheter related urinary tract infection prehospital + Blood cultures, started on IV vancomycin and cefepime -ID consulted, greatly appreciate assistance and recommendations -Likely source of sepsis is stage IV coccyx ulcer -Final ID recommendations for antibiotic pending final repeat blood cultures are negative. 08/02: Seen by ID specialist today with diagnosis of Sepsis possible, Pseudomonas aeruginosa bacteremia, MRSA bacteremia, Coag negative staph bacteremia, Gram negative UTI has a Cruz in place, Catheter associated UTI, with catheter likely present on admission Sacral decubitus ulcer with tunneling likely osteomyelitis could be possible source of infection, C Diff infection with large volume of diarrhea, recommended for Cefepime IV to continue, continue Vancomycin IV, Oral Vancomycin for C Diff, Asacol for post infectious inflammatory component, wound care, after infection treatment recommend just treating with oral vanco for 3 weeks (Vanco 125 mg po q6hrs). Diverting Colostomy planned for 08/07/18 //Severe malnutritioncontinue with tube feeds //C Diff Colitis Leukocytosis PEG p.o. vancomycin Isolation //Hx of Hemorrhagic CVA Chronic severe neurological deficits Supportive Care //Chronic sacral ulcer Stage IV Wound care nurse following Wound care physician consulted, Dr. Morales performed bedside debridement of wound will have Diverting colostomy planned for 08/07/18 //Continue Zoloft for possible underlying depression. //DVT Prophylaxis SCDs This is a pleasant 63 y/o Female with status post CVA hemorrhagic type, chronic neurological deficits Sepsis, initially positive culture for Coagulase negative staph aureus, MRSA and Pseudomonas aeruginosa C Diff diarrhea, Sacral wound, asked for diverting colostomy as per military technology specialist. early childhood education specialist following, she remains full code. Code Status: Full Code. Discussed Condition With: Nurse and MDR. Discharge Planning: Not yet cleared by specialist for discharge.
[2018-08-04] MEDS: Dextrose 5% in Water Inj 1,000 ML IV.CONT SCH (21:34)
[2018-08-05] MEDS: Vancomycin Inj 1,000 MG in Sodium Chlor 0.9% Inj 250 ML IV.SIG SCH ×2 (00:57→17:41)
[2018-08-05 06:22] LABS: Blood Urea Nitrogen 13 mg/dL (7-18); Glomerular Filtration Rate Greater Than 89 mL/min (>89)
--- NOTE | 2018-08-05 08:57 | P.PN ---
Subjective Interval history: This is a pleasant 63 y/o Female with status post CVA hemorrhagic type, chronic neurological deficits Sepsis, initially positive culture for Coagulase negative staph aureus, MRSA and Pseudomonas aeruginosa C Diff diarrhea, Sacral wound, asked for diverting colostomy as per replenishment specialist. volunteer specialist following, she remains full code, is been tried to contact her son to sign consent for Diverting Colostomy. Discussed with her Brother in the room in the presence of nurse Nicky explained to him that his Sister needs the Diverting colostomy as per surgery is no a temporary measurement. while she improves her Sacral wound Then discussed with her Son through the phone explained to him and he is coming to sign the consent notified General Surgery. 08/02: discussed with nurse early in am, wound care in the room to assess the sacral ulcer, seen by ID specialist today with diagnosis of Sepsis possible, Pseudomonas aeruginosa bacteremia, MRSA bacteremia, Coag negative staph bacteremia, Gram negative UTI has a Cruz in place, Catheter associated UTI, with catheter likely present on admission Sacral decubitus ulcer with tunneling likely osteomyelitis could be possible source of infection, C Diff infection with large volume of diarrhea, recommended for Cefepime IV to continue, continue Vancomycin IV, Oral Vancomycin for C Diff, Asacol for post infectious inflammatory component, wound care, after infection treatment recommend just treating with oral vanco for 3 weeks (Vanco 125 mg po q6hrs). 08/03: seen in her bedroom at this time Wound care ready to work with the patient , she will have Diverting Colostomy for next Monday08/07/18. 08/04: Seen in her bedroom no new issues, discussed with nurse Kim. 08/05: Stable in her bedroom, discussed with nurse Lanre Hu no new issues, no nausea, vomit or diarrhea awaiting for Diverting colostomy for Monday. Physical Exam Vital signs: Vital Signs 08/04/18 12:00 08/04/18 16:00 08/04/18 18:34 Temperature 98.3 F 98.1 F Pulse Rate 88 93 H Respiratory Rate 18 17 Blood Pressure 174/105 H 189/97 H 172/107 H Pulse Oximetry 100 100 08/04/18 20:00 08/05/18 00:00 08/05/18 08:00 Temperature 97.9 F 97.8 F 99.4 F Pulse Rate 110 H 95 H 94 H Respiratory Rate 16 17 17 Blood Pressure 154/103 H 149/100 H 153/88 H Pulse Oximetry 97 96 98 Intake & Output 08/04/18 08/05/18 08/05/18 18:59 06:59 18:59 Intake Total 1063 / 1063 1350 / 1350 Output Total 1100 / 1100 900 / 900 Balance -37 / -37 450 / 450 Weight 62.5 kg Intake: IV 450 / 450 1350 / 1350 D5W Inj 1,000 ML @ 35 mls/hr IV 1000 / 1000 .CONT .Q24H [facility] Rx#:[id number] Maxipime Inj 2,000 MG In NS Inj 200 / 200 100 / 100 100 ML @ 200 mls/hr IV.SIG Q8H [facility] Rx#:[id number] Vancomycin Inj 1,000 MG In NS 250 / 250 250 / 250 Inj 250 ML @ 250 mls/hr IV.SIG Q18H [facility] Rx#:[id number] Tube Feeding 613 / 613 Output: Urine 1100 / 1100 900 / 900 Other: Date of Last Bowel Movement 08/04/18 08/05/18 Narrative: GENERAL: good eye contact. SKIN: Warm and dry. HEAD: Normocephalic. EYES: No scleral icterus. No injection or drainage. NECK: Supple, trachea midline. No JVD. CARDIOVASCULAR: Regular rate and rhythm without murmurs, gallops, or rubs. RESPIRATORY: Breath sounds equal bilaterally. No accessory muscle use. GASTROINTESTINAL: Abdomen soft, non-tender, nondistended. Colostomy bag present. MUSCULOSKELETAL: No cyanosis, or edema. - Urinary Catheter Management Indwelling Urethral Catheter Cath placed during this visit: yes, but has since been removed by the nurse Reason for continuing: Acute urinary retention Insertion date: 07/12/18 Insertion time: 01:00 Removal date: 07/12/18 Removal time: 12:50 Results - Labs CBC & Chem 7: 08/02/18 05:26 08/05/18 04:37 Laboratory Results - last 24 hr 08/02/18 08/04/18 08/04/18 09:30 11:09 15:54 BUN Creatinine Estimated GFR POC Glucose 97 111 H MTS Gel Crossmatch See Detail 08/04/18 08/05/18 08/05/18 21:34 04:37 07:52 BUN 13 Creatinine 0.32 L Estimated GFR Greater than 89 POC Glucose 104 108 MTS Gel Crossmatch Assessment and Plan - Plan 63 year old female with a history of hemorrhagic CVA and severe chronic neurological deficit, admitted with diarrhea from C. Diff. //Sepsis //Pseudomonas bacteremia and MRSA bacteremia //Proteus catheter related urinary tract infection prehospital + Blood cultures, started on IV vancomycin and cefepime -ID consulted, greatly appreciate assistance and recommendations -Likely source of sepsis is stage IV coccyx ulcer -Final ID recommendations for antibiotic pending final repeat blood cultures are negative. 08/02: Seen by ID specialist today with diagnosis of Sepsis possible, Pseudomonas aeruginosa bacteremia, MRSA bacteremia, Coag negative staph bacteremia, Gram negative UTI has a Cruz in place, Catheter associated UTI, with catheter likely present on admission Sacral decubitus ulcer with tunneling likely osteomyelitis could be possible source of infection, C Diff infection with large volume of diarrhea, recommended for Cefepime IV to continue, continue Vancomycin IV, Oral Vancomycin for C Diff, Asacol for post infectious inflammatory component, wound care, after infection treatment recommend just treating with oral vanco for 3 weeks (Vanco 125 mg po q6hrs). Diverting Colostomy planned for 08/07/18 //Severe malnutritioncontinue with tube feeds //C Diff Colitis Leukocytosis PEG p.o. vancomycin Isolation //Hx of Hemorrhagic CVA Chronic severe neurological deficits Supportive Care //Chronic sacral ulcer Stage IV Wound care nurse following Wound care physician consulted, Dr. Morales performed bedside debridement of wound will have Diverting colostomy planned for 08/07/18 //Continue Zoloft for possible underlying depression. //DVT Prophylaxis SCDs This is a pleasant 63 y/o Female with status post CVA hemorrhagic type, chronic neurological deficits Sepsis, initially positive culture for Coagulase negative staph aureus, MRSA and Pseudomonas aeruginosa C Diff diarrhea, Sacral wound, asked for diverting colostomy as per replenishment specialist. volunteer specialist following, she remains full code. No changes to anterior assessment awaiting for diverting colostomy Code Status: Full code. Discussed Condition With: Nurse RONY Johnston. Discharge Planning: Not yet cleared by specialist for discharge.
[2018-08-05] MEDS: Insulin NovoLOG Aspart Correctional Sugar Inj SQ SCH ×4 (09:30→21:36)
[2018-08-05] MEDS: Sertraline 50 MG Tablet PO SCH (09:41)
[2018-08-05] MEDS: hydrALAZINE 50 MG Tablet PO SCH ×3 (09:41→17:10)
[2018-08-05] MEDS: Mesalamine 800 MG Tablet DR PO SCH ×3 (09:42→17:10)
[2018-08-05] MEDS: Lactobacillus Acidophilus/L. Spores Tablet G-TUBE SCH ×3 (09:44→17:10)
[2018-08-05] MEDS: Dextrose 5% in Water Inj 1,000 ML IV.CONT SCH ×2 (14:56→21:37)
[2018-08-06] MEDS: Insulin NovoLOG Aspart Correctional Sugar Inj SQ SCH ×4 (07:45→20:31)
[2018-08-06] MEDS: Lactobacillus Acidophilus/L. Spores Tablet G-TUBE SCH ×3 (08:58→17:39)
[2018-08-06] MEDS: Sertraline 50 MG Tablet PO SCH (08:58)
[2018-08-06] MEDS: hydrALAZINE 50 MG Tablet PO SCH ×3 (08:58→17:39)
[2018-08-06] MEDS: Mesalamine 800 MG Tablet DR PO SCH ×3 (08:59→17:40)
[2018-08-06] MEDS ORDERED: Pharmacy Ordered Lab Info OTHER ONE (11:45)
[2018-08-06] MEDS: Vancomycin Inj 1,000 MG in Sodium Chlor 0.9% Inj 250 ML IV.SIG SCH (12:00)
--- NOTE | 2018-08-06 12:21 | P.PNIM ---
Subjective Interval history: Patient does not appear to be in any acute distress. She is following simple commands. Physical Exam Vital signs: Vital Signs 08/05/18 16:00 08/05/18 20:00 08/06/18 00:00 Temperature 98.5 F 98.2 F 98.0 F Pulse Rate 103 H 92 H 80 Respiratory Rate 17 18 17 Blood Pressure 161/99 H 102/50 L 100/50 L Pulse Oximetry 100 99 99 08/06/18 08:00 Temperature 97.9 F Pulse Rate 87 Respiratory Rate 18 Blood Pressure 167/96 H Pulse Oximetry 99 Intake & Output 08/05/18 08/06/18 08/06/18 18:59 06:59 18:59 Intake Total 803 / 803 350 / 350 100 / 100 Output Total 975 / 975 800 / 800 Balance -172 / -172 -450 / -450 100 / 100 Weight 62 kg Intake: IV 200 / 200 350 / 350 100 / 100 Maxipime Inj 2,000 MG In NS Inj 200 / 200 100 / 100 100 / 100 100 ML @ 200 mls/hr IV.SIG Q8H [facility] Rx#:[id number] Vancomycin Inj 1,000 MG In NS 250 / 250 Inj 250 ML @ 250 mls/hr IV.SIG Q18H [facility] Rx#:[id number] Tube Feeding 603 / 603 Output: Urine 975 / 975 Urine Amount (Catheter) 800 / 800 Indwelling Urethral Catheter 800 / 800 Other: Date of Last Bowel Movement 08/05/18 Narrative: General patient in no acute distress, she can follow simple commands. HEENT extraocular movements are intact, clear oropharyngeal mucosa, no JVD Cardiovascular S1-S2 audible Respiratory clear to auscultation bilaterally Abdomen soft, nontender, nondistended, G-tube in place Extremities contractures of bilateral upper and lower extremities. Neuro patient follows simple commands. She cannot move her upper or lower extremities on my evaluation. - Urinary Catheter Management Indwelling Urethral Catheter Cath placed during this visit: yes, but has since been removed by the nurse Reason for continuing: Severe pressure ulcer/wound Insertion date: 07/12/18 Insertion time: 01:00 Removal date: 07/12/18 Removal time: 12:50 Results - Labs CBC & Chem 7: 08/02/18 05:26 08/05/18 04:37 Laboratory Results - last 24 hr 08/05/18 08/05/18 08/06/18 17:13 21:36 07:39 POC Glucose 103 90 114 H Assessment and Plan - Plan This patient is a 63-year-old female with a history of hemorrhagic CVA and severe chronic neurological deficits. The patient is currently being treated for sepsis secondary to bacteremia and C. difficile infection. She has a stage IV sacral ulcer and is scheduled for a diverting colostomy for tomorrow. 1. Sepsis secondary to Pseudomonas, MRSA, coag negative staph septicemia, and Proteus catheter associated UTI likely present on admission. She has remained afebrile overnight. Currently on IV antibiotics Infectious disease following. Continue current IV antibiotics. The stage IV decubitus ulcer is likely the source of the patient's septicemia. Continue wound care. She is scheduled for a diverting colostomy tomorrow. Hold feeds tonight, she will be started on light IV fluid hydration after the feeds are held. Labs ordered and will be followed up today. 2. C. difficile infection Continue p.o. vancomycin. Infectious disease following. 3. Stage IV sacral decubitus ulcer Plan is for the patient undergo diverting colostomy tomorrow. Continue wound care. 4. Severe malnutrition Continue tube feeds through the G-tube. SCDs for DVT prophylaxis
[2018-08-06 14:39] LABS: Eos # (Auto) 0.3 th/mm3 (0.0-0.4); Eos % (Auto) 8.1 % (0.0-4.0); Hematocrit 29.2 % (35.0-46.0); Hemoglobin 9.2 gm/dL (11.6-15.3); Lymph # (Auto) 1.1 th/mm3 (1.0-4.8); Lymph % (Auto) 29.8 % (9.0-44.0); Mean Corpuscular HGB Conc 31.5 % (32.0-36.0); Mean Corpuscular Hemoglobin 26.9 pg (27.0-34.0); Mean Corpuscular Volume 85.3 fL (80.0-100.0); Mean Platelet Volume 9.4 fL (7.0-11.0); Mono # (Auto) 0.5 th/mm3 (0.0-0.9); Mono % (Auto) 14.6 % (0.0-8.0); Neut # (Auto) 1.6 th/mm3 (1.8-7.7); Neut % (Auto) 46.5 % (16.0-70.0); Platelet Count 227 th/mm3 (150-450); Red Blood Count 3.43 mil/mm3 (4.00-5.30); Red Cell Distribution Width 22.6 % (11.6-17.2); White Blood Count 3.5 th/mm3 (4.0-11.0)
[2018-08-06 14:47] LABS: Anion Gap 6 meq/L (5-15); Blood Urea Nitrogen 20 mg/dL (7-18); Calcium 8.6 mg/dL (8.5-10.1); Carbon Dioxide 30.2 meq/L (21.0-32.0); Chloride 109 meq/L (98-107); Glomerular Filtration Rate Greater Than 89 mL/min (>89); Glucose,Random 102 mg/dL (74-106); Magnesium 2.1 mg/dL (1.5-2.5); Potassium 4.1 meq/L (3.5-5.1); Sodium 145 meq/L (136-145)
--- NOTE | 2018-08-06 16:13 | P.DIET ---
Nutritional Evaluation Type of nutrition evaluation: follow-up Nutrition consult regarding: Tube Feeding Nutrition screening: Pressure Injury Subjective Subjective Comments: Pt is non-verbal at baseline. Ht of 167.64cm used for assessment. Objective - Diagnosis Sepsis, Dehydration, Hypotension, C-Diff - Objective [place] body weight: 59.1 kg % IBW: 87 (IBW = 110#) Body Weight Used for Calculations: Actual (51.3 kg) Energy Needs - Lower Range (kCal/kg): 30 Energy Needs - Upper Range (kCal/kg): 35 Lower Limit kCal/kg (kCals): 1,539 Upper Limit kCal/kg (kCals): 1,796 Lower Limit Protein Factor (Grams per Kg): 1.2 Upper Limit Protein Factor (Grams per Kg): 1.5 Lower Protein Needs (Protein): 62 Upper Protein Needs (Protein): 89 Dietitian Reviewed in Medical Record: Curent medications, Intake & Output, Labs , Medical history, Tube feeding, Wound/DTI Diet Order: NPO Wound Care Note: 08/02/18 WOCN noted-sacrum ulcer Stage 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 Objective Comments: PMH Includes: HTN, CVA w/residual hemiparesis/aphasia, s/p PEG tube placement, c -diff Glucose 102, POC Glucose 114, 117 Meds Include: Tyshawn 1-packet BID, Novolog, Lactinex, Zofran, Zoloft, free water flush 200cc Q 6-hr +UOP 2000ml, +stool Feeding - Current Tube Feeding Tube Feeding Product: Glucerna 1.5 Tube Feeding Rate: 50 Tube Feeding Route: gastrostomy Current kCals Provided by Tube Feedin,800 Current Protein Provided by Tube Feeding (gPRO): 99 Current Free H2O Provided (m/l): 911 Assessment Assessment: Pt remains at high nutrition risk r/t increased needs for wound healing and her dependence on TF'ing for nutritional needs. TF'ing to be on-hold tonight r/ t pt is scheduled for diverting colostomy tomorrow 08/07. When TF'ing is restarted, Rec Glucerna 1.5, Rec a goal rate @ 50 mls/hr to offer 1800 kcal, 99g Protein and 911ml free water. Rec to continue Tyshawn 1 packet BID via PEG tube to aid in healing. Tyshawn is a targeted nutrition therapy that contains arginine and glutamine as well as CaHMB. Free Water Flushes per MD, as ordered. Wt changes noted. Dietitian following. Recommendations: 1. When TF'ing is restarted, Rec Glucerna 1.5, Rec a goal rate @ 50 ml/hr 2. Rec to continue Tyshawn 1 packet BID via PEG tube to aid in healing 3. Free Water Flushes per MD as ordered 4. Dietitian following Dietitian to Monitor: Lab values, Intake & Output, Tube feeding tolerance, Weight change, Wound/skin status, Medical course
[2018-08-07] MEDS: Dextrose 5% in Water Inj 1,000 ML IV.CONT SCH ×2 (00:47→22:04)
[2018-08-07] MEDS: Dextrose 5% in Water Inj 1,000 ML IV.SIG SCH ×2 (00:48→16:37)
[2018-08-07] MEDS: Vancomycin Inj 1,250 MG in Sodium Chlor 0.9% Inj 250 ML IV.SIG SCH ×2 (04:40→22:04)
[2018-08-07 06:17] LABS: Blood Urea Nitrogen 16 mg/dL (7-18); Glomerular Filtration Rate Greater Than 89 mL/min (>89)
[2018-08-07] MEDS: Insulin NovoLOG Aspart Correctional Sugar Inj SQ SCH ×4 (07:22→20:58)
[2018-08-07] MEDS ORDERED: Bupivacaine/Epinephrine Inj 0.25% 50 ML Vial ONE (09:09)
[2018-08-07] MEDS ORDERED: Phenylephrine/NS 1000 MCG/10ML Syringe IV.PUSH ONE (09:30)
[2018-08-07] MEDS ORDERED: Neostigmine Inj 5 MG/5 ML Syringe IV.PUSH ONE (09:30)
[2018-08-07] MEDS ORDERED: Lidocaine PF 1% Inj 5 ML Syringe OTHER ONE (09:30)
[2018-08-07] MEDS ORDERED: Glycopyrrolate Inj 1 MG/5 ML Syringe IV.PUSH ONE (09:30)
[2018-08-07] MEDS: Mesalamine 800 MG Tablet DR PO SCH ×3 (10:21→17:04)
[2018-08-07] MEDS: hydrALAZINE 50 MG Tablet PO SCH ×3 (10:21→17:04)
[2018-08-07] MEDS: Sertraline 50 MG Tablet PO SCH (10:22)
[2018-08-07] MEDS: Lactobacillus Acidophilus/L. Spores Tablet G-TUBE SCH ×3 (10:22→17:04)
[2018-08-07] MEDS ORDERED: fentaNYL Citrate Inj 100 MCG/2 ML Ampul ONE (11:10)
--- NOTE | 2018-08-07 11:17 | P.OP ---
- Preoperative Diagnosis (1) Decubitus ulcer - Postoperative Diagnosis (1) Decubitus ulcer (2) C. difficile colitis Date of procedure: 08/07/18 Procedure: Diverting loop colostomy Anesthesia: IMANIA Surgeon: Adi Monreal MD Pathology: none sent Operation and Findings: Patient taken the operating room placed in the supine position General anesthesia was begun Abdomen was prepped with Betadine A timeout was done We made a left lower quadrant incision in a horizontal fashion after anesthetized with Marcaine solution. We dissected down through the subcu tissue identifying the external fascia which is incised the rectus muscle is cut slightly on the lateral edge of it. We are able to enter the abdomen by pulling the rectus muscle medially. The sigmoid colon then is brought up into the field its fairly dilated. We then placed the colostomy bar through the mesentery secured to the skin. The ostomy was then matured after we closed the fascia to narrow the opening to prevent herniation. The colostomy was matured using 3-0 Vicryl interrupted sutures. The colostomy appliance was then applied patient told procedure well.
--- NOTE | 2018-08-07 13:12 | P.PNIM ---
Subjective Interval history: Patient does not appear to be in any acute distress. Physical Exam Vital signs: Vital Signs 08/06/18 16:00 08/07/18 00:51 08/07/18 02:51 Temperature 98.6 F 97.8 F Pulse Rate 89 84 Respiratory Rate 19 16 Blood Pressure 172/81 H 172/98 H 155/85 H Pulse Oximetry 99 08/07/18 08:00 08/07/18 11:02 08/07/18 11:15 Temperature 98.1 F 97.9 F Pulse Rate 89 98 H 98 H Respiratory Rate 18 20 18 Blood Pressure 157/84 H 167/102 H 173/92 H Pulse Oximetry 97 100 100 08/07/18 11:30 08/07/18 11:41 08/07/18 11:45 Temperature 98 F Pulse Rate 85 88 Respiratory Rate 15 16 Blood Pressure 164/87 H 163/89 H Pulse Oximetry 100 97 100 Intake & Output 08/06/18 08/07/18 08/07/18 18:59 06:59 18:59 Intake Total 929 / 929 862.5 / 862.5 Output Total 650 / 650 2100 / 2100 825 / 825 Balance 279 / 279 -1237.5 / -1237.5 -825 / -825 Weight 60.9 kg Intake: IV 450 / 450 362.5 / 362.5 Maxipime Inj 2,000 MG In NS Inj 200 / 200 100 / 100 100 ML @ 200 mls/hr IV.SIG Q8H [facility] Rx#:[id number] Vancomycin Inj 1,000 MG In NS 250 / 250 Inj 250 ML @ 250 mls/hr IV.SIG Q18H [facility] Rx#:[id number] Vancomycin Inj 1,250 MG In NS 262.5 / 262.5 Inj 250 ML @ 250 mls/hr IV.SIG Q18H [facility] Rx#:[id number] Tube Feeding 479 / 479 300 / 300 Water Bolus Amount 200 / 200 Output: Urine 800 / 800 Stool 700 / 700 Estimated Blood Loss 25 / 25 Urine Amount (Catheter) 650 / 650 600 / 600 800 / 800 Indwelling Urethral Catheter 650 / 650 600 / 600 800 / 800 Other: Date of Last Bowel Movement 08/06/18 08/06/18 Narrative: General patient in no acute distress, she can follow simple commands. HEENT extraocular movements are intact, clear oropharyngeal mucosa, no JVD Cardiovascular S1-S2 audible Respiratory clear to auscultation bilaterally Abdomen soft, nontender, nondistended, colostomy bag in place. Extremities contractures of bilateral upper and lower extremities. Neuro patient follows simple commands. She cannot move her upper or lower extremities on my evaluation. - Urinary Catheter Management Indwelling Urethral Catheter Cath placed during this visit: yes, but has since been removed by the nurse Reason for continuing: Hourly intake/output Insertion date: 07/12/18 Insertion time: 01:00 Removal date: 07/12/18 Removal time: 12:50 Results - Labs CBC & Chem 7: 08/06/18 14:00 08/07/18 04:00 Laboratory Results - last 24 hr 08/06/18 08/06/18 08/06/18 14:00 14:00 16:12 WBC 3.5 L RBC 3.43 L Hgb 9.2 L Hct 29.2 L MCV 85.3 MCH 26.9 L MCHC 31.5 L RDW 22.6 H Plt Count 227 MPV 9.4 Neut % (Auto) 46.5 Lymph % (Auto) 29.8 [place] % (Auto) 14.6 H Eos % (Auto) 8.1 H Baso % (Auto) 1.0 Neut # (Auto) 1.6 L Lymph # (Auto) 1.1 [place] # (Auto) 0.5 Eos # (Auto) 0.3 Baso # (Auto) 0.0 WBC Differential . Differential Comment Auto diff final Sodium 145 Potassium 4.1 Chloride 109 H Carbon Dioxide 30.2 Anion Gap 6 BUN 20 H Creatinine 0.30 L Estimated GFR Greater than 89 POC Glucose 120 H Random Glucose 102 Calcium 8.6 Magnesium 2.1 Blood Type Antibody Screen MTS Gel Crossmatch 08/06/18 08/06/18 08/07/18 19:50 20:30 04:00 WBC RBC Hgb Hct MCV MCH MCHC RDW Plt Count MPV Neut % (Auto) Lymph % (Auto) [place] % (Auto) Eos % (Auto) Baso % (Auto) Neut # (Auto) Lymph # (Auto) [place] # (Auto) Eos # (Auto) Baso # (Auto) WBC Differential Differential Comment Sodium Potassium Chloride Carbon Dioxide Anion Gap BUN 16 Creatinine 0.25 L Estimated GFR Greater than 89 POC Glucose 116 H Random Glucose Calcium Magnesium Blood Type O Positive Antibody Screen Negative MTS Gel Crossmatch See Detail 08/07/18 08/07/18 07:20 11:17 WBC RBC Hgb Hct MCV MCH MCHC RDW Plt Count MPV Neut % (Auto) Lymph % (Auto) [place] % (Auto) Eos % (Auto) Baso % (Auto) Neut # (Auto) Lymph # (Auto) [place] # (Auto) Eos # (Auto) Baso # (Auto) WBC Differential Differential Comment Sodium Potassium Chloride Carbon Dioxide Anion Gap BUN Creatinine Estimated GFR POC Glucose 99 110 Random Glucose Calcium Magnesium Blood Type Antibody Screen MTS Gel Crossmatch Assessment and Plan - Plan This patient is a 63-year-old female with a history of hemorrhagic CVA and severe chronic neurological deficits. The patient is currently being treated for sepsis secondary to bacteremia and C. difficile infection. She has a stage IV sacral ulcer and is scheduled for a diverting colostomy for tomorrow. 1. Sepsis secondary to Pseudomonas, MRSA, coag negative staph septicemia, and Proteus catheter associated UTI likely present on admission. She has remained afebrile overnight. Currently on IV antibiotics Infectious disease following. Continue current IV antibiotics. The stage IV decubitus ulcer is likely the source of the patient's septicemia. Continue wound care. She received her diverting colostomy today. The procedure went well according to the procedure note. She will be restarted on her feeds today. Dietitian following 2. C. difficile infection Continue p.o. vancomycin. Infectious disease following. 3. Stage IV sacral decubitus ulcer Patient is status post diverting colostomy. Continue wound care. Continue IV antibiotics. 4. Severe malnutrition Continue tube feeds through the G-tube. Dietitian following. SCDs for DVT prophylaxis
[2018-08-08] MEDS: Insulin NovoLOG Aspart Correctional Sugar Inj SQ SCH ×5 (07:28→20:53)
[2018-08-08 08:08] LABS: Baso # (Auto) 0.1 th/mm3 (0.0-0.2); Baso % (Auto) 0.8 % (0.0-2.0); Eos # (Auto) 0.1 th/mm3 (0.0-0.4); Eos % (Auto) 2.2 % (0.0-4.0); Hematocrit 25.1 % (35.0-46.0); Hemoglobin 8.1 gm/dL (11.6-15.3); Lymph # (Auto) 1.1 th/mm3 (1.0-4.8); Lymph % (Auto) 17.7 % (9.0-44.0); Mean Corpuscular HGB Conc 32.4 % (32.0-36.0); Mean Corpuscular Hemoglobin 27.7 pg (27.0-34.0); Mean Corpuscular Volume 85.5 fL (80.0-100.0); Mean Platelet Volume 9.4 fL (7.0-11.0); Mono # (Auto) 0.7 th/mm3 (0.0-0.9); Mono % (Auto) 10.3 % (0.0-8.0); Neut # (Auto) 4.4 th/mm3 (1.8-7.7); Platelet Count 216 th/mm3 (150-450); Red Blood Count 2.94 mil/mm3 (4.00-5.30); Red Cell Distribution Width 22.1 % (11.6-17.2); White Blood Count 6.4 th/mm3 (4.0-11.0)
[2018-08-08] MEDS: Mesalamine 800 MG Tablet DR PO SCH ×3 (08:34→17:22)
[2018-08-08] MEDS: Sertraline 50 MG Tablet PO SCH (08:35)
[2018-08-08] MEDS: Lactobacillus Acidophilus/L. Spores Tablet G-TUBE SCH ×3 (08:35→17:23)
[2018-08-08] MEDS: hydrALAZINE 50 MG Tablet PO SCH ×3 (08:37→17:22)
[2018-08-08] MEDS: Dextrose 5% in Water Inj 1,000 ML IV.SIG SCH (08:39)
[2018-08-08 08:41] LABS: Anion Gap 4 meq/L (5-15); Blood Urea Nitrogen 18 mg/dL (7-18); Calcium 8.4 mg/dL (8.5-10.1); Chloride 109 meq/L (98-107); Glomerular Filtration Rate Greater Than 89 mL/min (>89); Glucose,Random 93 mg/dL (74-106); Magnesium 1.9 mg/dL (1.5-2.5); Potassium 3.9 meq/L (3.5-5.1); Sodium 143 meq/L (136-145)
--- NOTE | 2018-08-08 12:02 | P.PNGS ---
Subjective Interval history: Resting in bed Eyes closed Not interactive much Physical Exam Vital signs: Vital Signs 08/07/18 15:43 08/07/18 20:00 08/08/18 00:00 Temperature 97.9 F 99.3 F 100.3 F H Pulse Rate 100 H 94 H 97 H Respiratory Rate 19 18 18 Blood Pressure 154/91 H 143/87 H 154/85 H Pulse Oximetry 99 99 97 08/08/18 08:00 Temperature 98.1 F Pulse Rate 93 H Respiratory Rate 19 Blood Pressure 154/95 H Pulse Oximetry 100 Intake & Output 08/07/18 08/08/18 08/08/18 18:59 06:59 18:59 Intake Total 800 / 800 1462.5 / 1462.5 1100 / 1100 Output Total 925 / 925 1600 / 1600 100 / 100 Balance -125 / -125 -137.5 / -137.5 1000 / 1000 Weight 66.5 kg Intake: IV 1462.5 / 1462.5 100 / 100 Maxipime Inj 2,000 MG In NS Inj 200 / 200 100 / 100 100 ML @ 200 mls/hr IV.SIG Q8H [facility] Rx#:[id number] D5W Inj 1,000 ML @ 60 mls/hr IV 1000 / 1000 .SIG .[id number] [facility] Rx#:[id number] Vancomycin Inj 1,250 MG In NS 262.5 / 262.5 Inj 250 ML @ 250 mls/hr IV.SIG Q18H [facility] Rx#:[id number] Oral 0 / 0 Tube Feeding 300 / 300 1000 / 1000 Tube Irrigant 100 / 100 Water Bolus Amount 400 / 400 Output: Urine 1600 / 1600 Estimated Blood Loss 25 / 25 Urine Amount (Catheter) 800 / 800 Indwelling Urethral Catheter 800 / 800 Stool Amount (Stoma) 100 / 100 100 / 100 Left Lower Abdomen 100 / 100 100 / 100 Other: Date of Last Bowel Movement 08/06/18 Narrative: Eyes closed; not following commands Abd: large stoma--pink-- serosanguineous fluid in appliance bag-- small amount of liquid stool BUE contracted - Urinary Catheter Management Indwelling Urethral Catheter Cath placed during this visit: yes, but has since been removed by the nurse Reason for continuing: Acute urinary retention Insertion date: 07/12/18 Insertion time: 01:00 Removal date: 07/12/18 Removal time: 12:50 Results - Labs 10/03/18 07:05 08/08/18 07:05 Laboratory Results - last 24 hr 08/07/18 08/07/18 08/08/18 16:23 21:00 07:05 WBC 6.4 RBC 2.94 L Hgb 8.1 L Hct 25.1 L MCV 85.5 MCH 27.7 MCHC 32.4 RDW 22.1 H Plt Count 216 MPV 9.4 Neut % (Auto) 69.0 Lymph % (Auto) 17.7 [place] % (Auto) 10.3 H Eos % (Auto) 2.2 Baso % (Auto) 0.8 Neut # (Auto) 4.4 Lymph # (Auto) 1.1 [place] # (Auto) 0.7 Eos # (Auto) 0.1 Baso # (Auto) 0.1 WBC Differential . Differential Comment Auto diff final Sodium Potassium Chloride Carbon Dioxide Anion Gap BUN Creatinine Estimated GFR POC Glucose 113 H 125 H Random Glucose Calcium Magnesium 08/08/18 08/08/18 08/08/18 07:05 07:31 11:07 WBC RBC Hgb Hct MCV MCH MCHC RDW Plt Count MPV Neut % (Auto) Lymph % (Auto) [place] % (Auto) Eos % (Auto) Baso % (Auto) Neut # (Auto) Lymph # (Auto) [place] # (Auto) Eos # (Auto) Baso # (Auto) WBC Differential Differential Comment Sodium 143 Potassium 3.9 Chloride 109 H Carbon Dioxide 30.0 Anion Gap 4 L BUN 18 Creatinine 0.35 L Estimated GFR Greater than 89 POC Glucose 117 H 109 Random Glucose 93 Calcium 8.4 L Magnesium 1.9 - Imaging Imaging: ITS Impressions Chest X-Ray 07/06/18 20:33 CONCLUSION: No acute cardiopulmonary process. Assessment and Plan - Assessment (1) Decubitus ulcer Code(s): L89.90 - Pressure ulcer of unspecified site, unspecified stage Status : Acute Plan: 63 year old female s/p CVA with stage 4 decubitus ulcer in need to diverting loop colostomy -POD1 Diverting loop colostomy -Ostomy team following -Continue routine care of colostomy---awaiting full function -TF as tolerated -Await Plastic recommendations of sacral wound now that colostomy is placed
[2018-08-08] MEDS: Vancomycin Inj 1,250 MG in Sodium Chlor 0.9% Inj 250 ML IV.SIG SCH (15:50)
--- NOTE | 2018-08-08 19:59 | P.PNIM ---
Subjective Interval history: Patient does not appear to be in any acute distress. Physical Exam Vital signs: Vital Signs 08/07/18 20:00 08/08/18 00:00 08/08/18 08:00 Temperature 99.3 F 100.3 F H 98.1 F Pulse Rate 94 H 97 H 93 H Respiratory Rate 18 18 19 Blood Pressure 143/87 H 154/85 H 154/95 H Pulse Oximetry 99 97 100 08/08/18 12:00 08/08/18 16:00 08/08/18 19:48 Temperature 97.9 F 97.8 F 97.9 F Pulse Rate 101 H 101 H 103 H Respiratory Rate 17 19 17 Blood Pressure 126/72 147/99 H 123/73 Pulse Oximetry 99 98 99 Intake & Output 08/08/18 08/08/18 08/09/18 06:59 18:59 06:59 Intake Total 1462.5 / 1462.5 1462.5 / 1462.5 Output Total 1600 / 1600 1175 / 1175 Balance -137.5 / -137.5 287.5 / 287.5 Weight 66.5 kg Intake: IV 1462.5 / 1462.5 462.5 / 462.5 Maxipime Inj 2,000 MG In NS Inj 200 / 200 200 / 200 100 ML @ 200 mls/hr IV.SIG Q8H [facility] Rx#:[id number] D5W Inj 1,000 ML @ 60 mls/hr IV 1000 / 1000 .SIG .[id number] [facility] Rx#:[id number] Vancomycin Inj 1,250 MG In NS 262.5 / 262.5 262.5 / 262.5 Inj 250 ML @ 250 mls/hr IV.SIG Q18H [facility] Rx#:[id number] Oral 0 / 0 Tube Feeding 1000 / 1000 Output: Urine 1600 / 1600 900 / 900 Stool Amount (Stoma) 275 / 275 Left Lower Abdomen 275 / 275 Other: Date of Last Bowel Movement 08/08/18 # Incontinent Bowel Movements 1 Narrative: General patient in no acute distress, she can follow simple commands. HEENT extraocular movements are intact, clear oropharyngeal mucosa, no JVD Cardiovascular S1-S2 audible Respiratory clear to auscultation bilaterally Abdomen soft, nontender, nondistended, colostomy bag in place. Extremities contractures of bilateral upper and lower extremities. Neuro patient follows simple commands. Full neurological examination difficult to assess as the patient only follows simple commands. - Urinary Catheter Management Indwelling Urethral Catheter Cath placed during this visit: yes, but has since been removed by the nurse Reason for continuing: Acute urinary retention Insertion date: 07/12/18 Insertion time: 01:00 Removal date: 07/12/18 Removal time: 12:50 Results - Labs CBC & Chem 7: 08/08/18 07:05 08/08/18 07:05 Laboratory Results - last 24 hr 08/07/18 08/08/18 08/08/18 21:00 07:05 07:05 WBC 6.4 RBC 2.94 L Hgb 8.1 L Hct 25.1 L MCV 85.5 MCH 27.7 MCHC 32.4 RDW 22.1 H Plt Count 216 MPV 9.4 Neut % (Auto) 69.0 Lymph % (Auto) 17.7 [place] % (Auto) 10.3 H Eos % (Auto) 2.2 Baso % (Auto) 0.8 Neut # (Auto) 4.4 Lymph # (Auto) 1.1 [place] # (Auto) 0.7 Eos # (Auto) 0.1 Baso # (Auto) 0.1 WBC Differential . Differential Comment Auto diff final Sodium 143 Potassium 3.9 Chloride 109 H Carbon Dioxide 30.0 Anion Gap 4 L BUN 18 Creatinine 0.35 L Estimated GFR Greater than 89 POC Glucose 125 H Random Glucose 93 Calcium 8.4 L Magnesium 1.9 08/08/18 08/08/18 08/08/18 07:31 11:07 15:52 WBC RBC Hgb Hct MCV MCH MCHC RDW Plt Count MPV Neut % (Auto) Lymph % (Auto) [place] % (Auto) Eos % (Auto) Baso % (Auto) Neut # (Auto) Lymph # (Auto) [place] # (Auto) Eos # (Auto) Baso # (Auto) WBC Differential Differential Comment Sodium Potassium Chloride Carbon Dioxide Anion Gap BUN Creatinine Estimated GFR POC Glucose 117 H 109 117 H Random Glucose Calcium Magnesium Assessment and Plan - Plan This patient is a 63-year-old female with a history of hemorrhagic CVA and severe chronic neurological deficits. The patient is currently being treated for sepsis secondary to bacteremia and C. difficile infection. She has a stage IV sacral ulcer and is scheduled for a diverting colostomy for tomorrow. 1. Sepsis secondary to Pseudomonas, MRSA, coag negative staph septicemia, and Proteus catheter associated UTI likely present on admission. She has remained afebrile overnight. Currently on IV antibiotics Infectious disease following. I will follow up with infectious disease tomorrow for further recommendations. Continue current IV antibiotics. The stage IV decubitus ulcer is likely the source of the patient's septicemia. The patient is status post diverting colostomy yesterday. The procedure went well. Surgery following. Continue wound care. I discussed the case with plastic surgeon and the plan is to have a wound VAC placed likely tomorrow. I will follow-up with the wound care nurse tomorrow. Patient tolerating her feeds. Dietitian following 2. C. difficile infection Continue p.o. vancomycin. Infectious disease following. 3. Stage IV sacral decubitus ulcer Patient is status post diverting colostomy. Continue wound care. Wound VAC will likely be placed tomorrow. Continue IV antibiotics. 4. Severe malnutrition Continue tube feeds through the G-tube. Dietitian following. SCDs for DVT prophylaxis
[2018-08-09] MEDS: Dextrose 5% in Water Inj 1,000 ML IV.CONT SCH ×2 (03:26→20:30)
[2018-08-09] MEDS: Dextrose 5% in Water Inj 1,000 ML IV.SIG SCH ×2 (03:27→18:03)
[2018-08-09] MEDS: Insulin NovoLOG Aspart Correctional Sugar Inj SQ SCH ×4 (07:23→20:26)
[2018-08-09 08:02] LABS: Blood Urea Nitrogen 13 mg/dL (7-18); Glomerular Filtration Rate Greater Than 89 mL/min (>89)
[2018-08-09] MEDS: hydrALAZINE 50 MG Tablet PO SCH ×3 (08:35→17:30)
[2018-08-09] MEDS: Lactobacillus Acidophilus/L. Spores Tablet G-TUBE SCH ×3 (08:36→17:30)
[2018-08-09] MEDS: Mesalamine 800 MG Tablet DR PO SCH ×3 (08:36→17:29)
[2018-08-09] MEDS: Sertraline 50 MG Tablet PO SCH (08:38)
[2018-08-09] MEDS ORDERED: Pharmacy Ordered Lab Info OTHER ONE (09:45)
--- NOTE | 2018-08-09 11:18 | P.PNGS ---
Subjective Interval history: DAILY PROGRESS NOTE FOR SURGICAL ATTENDING, DR. DIPAK KOROMA Eyes open Nonverbal Physical Exam Vital signs: Vital Signs 08/08/18 12:00 08/08/18 16:00 08/08/18 19:48 Temperature 97.9 F 97.8 F 97.9 F Pulse Rate 101 H 101 H 103 H Respiratory Rate 17 19 17 Blood Pressure 126/72 147/99 H 123/73 Pulse Oximetry 99 98 99 08/09/18 00:00 Temperature 98.3 F Pulse Rate 100 H Respiratory Rate 16 Blood Pressure 158/97 H Pulse Oximetry 100 Intake & Output 08/08/18 08/09/18 08/09/18 18:59 06:59 18:59 Intake Total 1462.5 / 1462.5 1000 / 1000 Output Total 1175 / 1175 400 / 400 125 / 125 Balance 287.5 / 287.5 600 / 600 -125 / -125 Weight 66.5 kg Intake: IV 462.5 / 462.5 1000 / 1000 Maxipime Inj 2,000 MG In NS Inj 200 / 200 100 ML @ 200 mls/hr IV.SIG Q8H [facility] Rx#:[id number] D5W Inj 1,000 ML @ 60 mls/hr IV 1000 / 1000 .SIG .[id number] [facility] Rx#:[id number] Vancomycin Inj 1,250 MG In NS 262.5 / 262.5 Inj 250 ML @ 250 mls/hr IV.SIG Q18H [facility] Rx#:[id number] Oral 0 / 0 Tube Feeding 1000 / 1000 Output: Urine 900 / 900 Stool 400 / 400 Stool Amount (Stoma) 275 / 275 125 / 125 Left Lower Abdomen 275 / 275 125 / 125 Other: Date of Last Bowel Movement 08/08/18 08/08/18 08/09/18 # Incontinent Bowel Movements 1 Narrative: Resting in bed Abd: soft; PEG with TF; LLQ colostomy with serous drainage; small amount of formed stool - Urinary Catheter Management Indwelling Urethral Catheter Cath placed during this visit: yes, but has since been removed by the nurse Reason for continuing: Acute urinary retention Insertion date: 07/12/18 Insertion time: 01:00 Removal date: 07/12/18 Removal time: 12:50 Results - Labs 08/08/18 07:05 08/09/18 06:51 Laboratory Results - last 24 hr 08/06/18 08/08/18 08/08/18 19:50 11:07 15:52 BUN Creatinine Estimated GFR POC Glucose 109 117 H Vancomycin Trough MTS Gel Crossmatch See Detail 08/09/18 08/09/18 08/09/18 06:51 07:12 09:45 BUN 13 Creatinine 0.27 L Estimated GFR Greater than 89 POC Glucose 117 H Vancomycin Trough 14.8 H MTS Gel Crossmatch - Imaging Imaging: ITS Impressions Chest X-Ray 07/06/18 20:33 CONCLUSION: No acute cardiopulmonary process. Assessment and Plan - Assessment (1) Colostomy in place Code(s): Z93.3 - Colostomy status Status: Acute (2) Decubitus ulcer Code(s): L89.90 - Pressure ulcer of unspecified site, unspecified stage Status : Acute Plan: 63 year old female s/p CVA with stage 4 decubitus ulcer in need to diverting loop colostomy -POD2 Diverting loop colostomy -Ostomy team following -Continue routine care of colostomy---awaiting full function -TF as tolerated -Await Plastic recommendations of sacral wound now that colostomy is placed --- Discussed with Dr. Morales ---plan for Wound Vac placement tomorrow - Attending Attestation NOTE FOR SURGICAL ATTENDING, DR. DIPAK KOROMA I agree with above assessment and plan. The exam, history, and the medical decision-making described in the above note were completed with the assistance of the mid-level provider. I reviewed and agree with the findings presented. I attest that I had a [id number] encounter with the patient on the same day, and personally performed and documented my assessment and findings in the medical record. The following services were provided during this hospital visit: Chart data review, vital sign assessments/reviewing monitor data Review of consultations notes if present. Medication orders/review and/or management Ordering and/or reviewing lab tests Ordering and/or interpreting/reviewing x-rays and/or diagnostic studies Care of the patient and discussion of the patient with the care team Documentation time To help prompt me to consider important information that might be impacting today's encounter and assessment, Information from prior notes written by myself or my colleagues may have been "brought forward/copy and pasted" into today's note.
--- NOTE | 2018-08-09 13:28 | P.PN ---
Subjective Interval history: Follow-up visit for bacteremia, C. difficile, sacral ulcer and CVA. Patient is seen and examined resting in bed appears to be comfortable and in no acute distress. Nurse does not report any acute events overnight or this morning. Patient denies any pain or discomfort. Physical Exam Vital signs: Vital Signs 08/08/18 16:00 08/08/18 19:48 08/09/18 00:00 Temperature 97.8 F 97.9 F 98.3 F Pulse Rate 101 H 103 H 100 H Respiratory Rate 19 17 16 Blood Pressure 147/99 H 123/73 158/97 H Pulse Oximetry 98 99 100 Intake & Output 08/08/18 08/09/18 08/09/18 18:59 06:59 18:59 Intake Total 1462.5 / 1462.5 1000 / 1000 Output Total 1175 / 1175 400 / 400 125 / 125 Balance 287.5 / 287.5 600 / 600 -125 / -125 Weight 66.5 kg Intake: IV 462.5 / 462.5 1000 / 1000 Maxipime Inj 2,000 MG In NS Inj 200 / 200 100 ML @ 200 mls/hr IV.SIG Q8H [facility] Rx#:[id number] D5W Inj 1,000 ML @ 60 mls/hr IV 1000 / 1000 .SIG .[id number] [facility] Rx#:[id number] Vancomycin Inj 1,250 MG In NS 262.5 / 262.5 Inj 250 ML @ 250 mls/hr IV.SIG Q18H [facility] Rx#:[id number] Oral 0 / 0 Tube Feeding 1000 / 1000 Output: Urine 900 / 900 Stool 400 / 400 Stool Amount (Stoma) 275 / 275 125 / 125 Left Lower Abdomen 275 / 275 125 / 125 Other: Date of Last Bowel Movement 08/08/18 08/08/18 08/09/18 # Incontinent Bowel Movements 1 Narrative: GENERAL: Very thin elderly female, NAD, awake, appears to be in no acute distress. HEAD: Normocephalic. NECK: Supple, trachea midline. EYES: No scleral icterus. No injection or drainage. CARDIOVASCULAR: Regular rate and rhythm without murmurs, gallops, or rubs. RESPIRATORY: Breath sounds equal bilaterally. No accessory muscle use. GASTROINTESTINAL: Abdomen soft, non-tender, nondistended. No erythema at tube feed site. Left quadrant colostomy with liquid stool, pink stoma. MUSCULOSKELETAL: No cyanosis, or edema. SKIN: Warm and dry. NEURO: Global neurological deficits. Appears to understand, shakes her head no. - Urinary Catheter Management Indwelling Urethral Catheter Cath placed during this visit: yes, but has since been removed by the nurse Reason for continuing: Acute urinary retention Insertion date: 07/12/18 Insertion time: 01:00 Removal date: 07/12/18 Removal time: 12:50 Results - Labs CBC & Chem 7: 08/08/18 07:05 08/09/18 06:51 Laboratory Results - last 24 hr 08/06/18 08/08/18 08/09/18 19:50 15:52 06:51 BUN 13 Creatinine 0.27 L Estimated GFR Greater than 89 POC Glucose 117 H Vancomycin Trough MTS Gel Crossmatch See Detail 08/09/18 08/09/18 08/09/18 07:12 09:45 11:31 BUN Creatinine Estimated GFR POC Glucose 117 H 158 H Vancomycin Trough 14.8 H MTS Gel Crossmatch 08/09/18 11:34 BUN Creatinine Estimated GFR POC Glucose 109 Vancomycin Trough MTS Gel Crossmatch Assessment and Plan - Plan 63 year old female with a history of hemorrhagic CVA and severe chronic neurological deficit, admitted with diarrhea from C. Diff. Sepsis secondary to Pseudomonas, MRSA, coag negative staph septicemia, and Proteus catheter associated UTI likely present on admission. + Blood cultures -ID consulted, s/p IV antibiotics D/C 08/08 - low grade temp on 08/08 possibly C Diff Colitis PEG Vancomycin, discussed with , recommends 3 weeks of Vanco. p.o. 125mg Q6H Isolation Hx of Hemorrhagic CVA Chronic severe neurological deficits Supportive Care Chronic sacral ulcer Stage IV Wound care nurse following, from wound care also following Plastics following, recommends Wound-Vac Wound vac placement Monday. post-op day 2 diverting loop colostomy DVT Prophylaxis SCDs had discussion with son regarding code status and would like patient to remain a full code. Discussed Condition With: , applications chemist's and Dr. Cruz. Discharge Planning: DC back to her SNF once PT does evaluation, cleared from GS and .
--- NOTE | 2018-08-09 13:43 | P.PNID ---
Infectious Disease Brief Note Case dion Olvera [employer]. Patient had colostomy some stool noted. Source of bacteremia was cellulitis. Bone intact periosteum. Ok to Stop all IV antibiotics. I would recommend just treating with oral vanco for 3 weeks (Vanco 125 mg po q6hrs). Will sign off please call back if any change in clinical condition or questions. 08/08/18 16:00 08/08/18 19:48 08/09/18 00:00 Temperature 97.8 F 97.9 F 98.3 F Pulse Rate 101 H 103 H 100 H Respiratory Rate 19 17 16 Blood Pressure 147/99 H 123/73 158/97 H Pulse Oximetry 98 99 100 Laboratory Results - last 24 hr 08/06/18 08/08/18 08/09/18 19:50 15:52 06:51 BUN 13 Creatinine 0.27 L Estimated GFR Greater than 89 POC Glucose 117 H Vancomycin Trough MTS Gel Crossmatch See Detail 08/09/18 08/09/18 08/09/18 07:12 09:45 11:31 BUN Creatinine Estimated GFR POC Glucose 117 H 158 H Vancomycin Trough 14.8 H MTS Gel Crossmatch 08/09/18 11:34 BUN Creatinine Estimated GFR POC Glucose 109 Vancomycin Trough MTS Gel Crossmatch
[2018-08-10] MEDS: Dextrose 5% in Water Inj 1,000 ML IV.CONT SCH ×2 (01:47→10:35)
[2018-08-10] MEDS: Insulin NovoLOG Aspart Correctional Sugar Inj SQ SCH ×4 (08:56→21:07)
[2018-08-10] MEDS: Sertraline 50 MG Tablet PO SCH (08:58)
[2018-08-10] MEDS: Mesalamine 800 MG Tablet DR PO SCH ×3 (08:58→17:27)
[2018-08-10] MEDS: hydrALAZINE 50 MG Tablet PO SCH ×3 (08:58→17:26)
[2018-08-10] MEDS: Lactobacillus Acidophilus/L. Spores Tablet G-TUBE SCH ×3 (08:58→17:27)
[2018-08-10] MEDS: amLODIPine 5 MG Tablet PO SCH (10:35)
[2018-08-10] MEDS: Dextrose 5% in Water Inj 1,000 ML IV.SIG SCH (12:39)
--- NOTE | 2018-08-10 13:03 | P.PNGS ---
Subjective Interval history: DAILY PROGRESS NOTE FOR SURGICAL ATTENDING, DR. DIPAK KOROMA Resting in bed Eyes open Nonverbal Physical Exam Vital signs: Vital Signs 08/09/18 16:00 08/09/18 20:00 08/10/18 00:00 Temperature 97.6 F 97.3 F L 97.5 F L Pulse Rate 102 H 109 H 105 H Respiratory Rate 18 16 17 Blood Pressure 184/109 H 178/91 H 176/96 H Pulse Oximetry 99 98 96 08/10/18 04:00 08/10/18 08:00 08/10/18 12:00 Temperature 97.8 F 97.9 F 97.6 F Pulse Rate 82 81 85 Respiratory Rate 18 19 18 Blood Pressure 172/92 H 159/112 H 181/85 H Pulse Oximetry 98 100 96 Intake & Output 08/09/18 08/10/18 08/10/18 18:59 06:59 18:59 Intake Total 0 / 0 999 Output Total 650 / 650 150 / 150 Balance -650 / -650 999 1850 / 1850 Weight 66.9 kg Intake: IV 999 D5W Inj 1,000 ML @ 35 mls/hr IV 1000 / 1000 1000 / 1000 .CONT .Q24H [facility] Rx#:[id number] D5W Inj 1,000 ML @ 60 mls/hr IV 1000 / 1000 .SIG .[id number] [facility] Rx#:[id number] Oral 0 / 0 0 / 0 Output: Urine 350 / 350 Stool Amount (Stoma) 300 / 300 150 / 150 Left Lower Abdomen 300 / 300 150 / 150 Other: # Voids 900 Date of Last Bowel Movement 08/09/18 08/09/18 # Bowel Movements 2 Narrative: Awake; nonverbal Abd: soft; PEG in place with TF; colostomy in place-- stoma red--- + stool - Urinary Catheter Management Indwelling Urethral Catheter Cath placed during this visit: yes, but has since been removed by the nurse Reason for continuing: Acute urinary retention Insertion date: 07/12/18 Insertion time: 01:00 Removal date: 07/12/18 Removal time: 12:50 Results - Labs 08/08/18 07:05 08/09/18 06:51 Laboratory Results - last 24 hr 08/09/18 08/10/18 08/10/18 16:09 07:54 12:00 POC Glucose 112 H 119 H 98 - Imaging Imaging: ITS Impressions Chest X-Ray 07/06/18 20:33 CONCLUSION: No acute cardiopulmonary process. Assessment and Plan - Assessment (1) Colostomy in place Code(s): Z93.3 - Colostomy status Status: Acute (2) Decubitus ulcer Code(s): L89.90 - Pressure ulcer of unspecified site, unspecified stage Status : Acute Plan: 63 year old female s/p CVA with stage 4 decubitus ulcer in need to diverting loop colostomy -POD3 Diverting loop colostomy -Ostomy team following -Continue routine care of colostomy---awaiting full function -TF as tolerated -Await Plastic recommendations of sacral wound now that colostomy is placed --- Discussed with Dr. Morales ---plan for Wound Vac placement tou - clear for DC to SNF
--- NOTE | 2018-08-10 15:23 | P.PNWCN ---
Wound Care Nurse Consult Description: Patient seen on for follow up of possible wound VAC placement. Communicated with: LINSEY Llamas ARNP [place], ARNP Case Management Recommendation: Please follow written orders for discharge from Doctor Andrew for wound care. Additional information: Patient is pending discharge to SNF today. Per Case Management, wound VAC is being ordered for delivery/application at SNF. Dressing changed today with Maxorb II by LINSEY Llamas may remain in place for up to 5 days or until wound VAC may be obtained.
--- NOTE | 2018-08-10 16:25 | P.PN ---
Subjective Interval history: Follow-up visit for bacteremia, C. difficile, sacral ulcer and CVA. Patient seen and examined resting in no acute distress. She is had no acute pain or discomfort. Nurse reports ongoing liquid stools, as well as hypertension. Physical Exam Vital signs: Vital Signs 08/09/18 20:00 08/10/18 00:00 08/10/18 04:00 Temperature 97.3 F L 97.5 F L 97.8 F Pulse Rate 109 H 105 H 82 Respiratory Rate 16 17 18 Blood Pressure 178/91 H 176/96 H 172/92 H Pulse Oximetry 98 96 98 08/10/18 08:00 08/10/18 12:00 Temperature 97.9 F 97.6 F Pulse Rate 81 85 Respiratory Rate 19 18 Blood Pressure 159/112 H 181/85 H Pulse Oximetry 100 96 Intake & Output 08/09/18 08/10/18 08/10/18 18:59 06:59 18:59 Intake Total 0 / 0 1000 / 1000 1999 / 1999 Output Total 650 / 650 150 / 150 Balance -650 / -650 1000 / 1000 1850 / 1850 Weight 66.9 kg Intake: IV 1000 / 1000 1999 / 1999 D5W Inj 1,000 ML @ 35 mls/hr IV 1000 / 1000 1000 / 1000 .CONT .Q24H [facility] Rx#:[id number] D5W Inj 1,000 ML @ 60 mls/hr IV 1000 / 1000 .SIG .[id number] [facility] Rx#:[id number] Oral 0 / 0 0 / 0 Output: Urine 350 / 350 Stool Amount (Stoma) 300 / 300 150 / 150 Left Lower Abdomen 300 / 300 150 / 150 Other: # Voids 900 Date of Last Bowel Movement 08/09/18 08/09/18 # Bowel Movements 2 Narrative: GENERAL: Very thin elderly female, NAD, awake, appears to be in no acute distress. HEAD: Normocephalic. NECK: Supple, trachea midline. EYES: No scleral icterus. No injection or drainage. CARDIOVASCULAR: Regular rate and rhythm without murmurs, gallops, or rubs. RESPIRATORY: Breath sounds equal bilaterally. No accessory muscle use. GASTROINTESTINAL: Abdomen soft, non-tender, nondistended. No erythema at tube feed site. Left quadrant colostomy with liquid stool, pink stoma. MUSCULOSKELETAL: No cyanosis, or edema. SKIN: Warm and dry. NEURO: Global neurological deficits. Appears to understand, shakes her head no. - Urinary Catheter Management Indwelling Urethral Catheter Cath placed during this visit: yes, but has since been removed by the nurse Reason for continuing: Acute urinary retention Insertion date: 07/12/18 Insertion time: 01:00 Removal date: 07/12/18 Removal time: 12:50 Results - Labs CBC & Chem 7: 08/08/18 07:05 08/09/18 06:51 Laboratory Results - last 24 hr 08/09/18 08/10/18 08/10/18 16:09 07:54 12:00 POC Glucose 112 H 119 H 98 Stl C.difficile DNA Amp St C. diff Tox Epid 027 08/10/18 14:06 POC Glucose Stl C.difficile DNA Amp Negative St C. diff Tox Epid 027 Negative Assessment and Plan - Plan 63 year old female with a history of hemorrhagic CVA and severe chronic neurological deficit, admitted with diarrhea from C. Diff. Sepsis secondary to Pseudomonas, MRSA, coag negative staph septicemia, and Proteus catheter associated UTI likely present on admission. + Blood cultures -ID consulted, s/p IV antibiotics D/C 08/08 -Afebrile C Diff Colitis PEG Vancomycin, discussed with , recommends 3 weeks of Vanco. p.o. 125mg Q6H Isolation, patient to continue isolation even when discharged to SNF as long as she is having diarrhea Start Questran to assist with bulking of stool Hx of Hemorrhagic CVA Chronic severe neurological deficits Supportive Care Hypertension -BP 180/85, start low-dose Norvasc, PRN clonidine Chronic sacral ulcer Stage IV Wound care nurse following, from wound care also following Plastics following, recommends Wound-Vac Wound vac placement today, no private rooms available at SNF. Colostomy working well, general surgery cleared for discharge DVT Prophylaxis SCDs Discussed Condition With: , wound care nurses, pillowcase cleaner and aco coordinator Planning: DC back to her SNF, wound care has made specific recommendations for wound VAC. Patient however will need to be on private isolation room and there is not one available as of yet.
[2018-08-11] MEDS: Dextrose 5% in Water Inj 1,000 ML IV.CONT SCH (00:48)
[2018-08-11] MEDS: Dextrose 5% in Water Inj 1,000 ML IV.SIG SCH (06:31)
[2018-08-11] MEDS: Insulin NovoLOG Aspart Correctional Sugar Inj SQ SCH ×2 (07:34→13:14)
[2018-08-11] MEDS: Mesalamine 800 MG Tablet DR PO SCH ×2 (08:03→13:15)
[2018-08-11] MEDS: amLODIPine 5 MG Tablet PO SCH (08:03)
[2018-08-11] MEDS: hydrALAZINE 50 MG Tablet PO SCH ×2 (08:04→13:15)
[2018-08-11] MEDS: Sertraline 50 MG Tablet PO SCH (08:04)
[2018-08-11] MEDS: Lactobacillus Acidophilus/L. Spores Tablet G-TUBE SCH ×2 (08:05→13:15)
[2018-08-11 08:40] VITALS: BP 142/66; PULSE 91; RESP 18; TEMP 98.3; O2SAT 97
--- NOTE | 2018-08-11 09:46 | P.DS ---
Date of admission: 07/06/18 22:48 Primary care physician: UNKNOWN Attending physician on discharge: Shorty Mary Anticipated date of discharge: 08/11/18 Brief History from admission: This is a 63-year-old female with a PMH of HTN, C Diff and CVA w/ residual hemiparesis/aphasia who was sent to the ER from SNF due to hypotension w/ BP 72/ 58 and bandemia on outpatient labs. Unable to obtain history from patient as she is non-verbal at baseline. Per records, pt diagnosed w/ C Diff on 07/06/18 and started on Flagyl, outpatient labs w/ significant bandemia, today noted to be hypotensive w/ BP 70's. On arrival, BP 85/59, HR 94, O2 sat 98% on RA, Afebrile. Creatinine 1.46, previously 0.45 on 03/20/2018. Lactic Acid 2.3. WBC normal however significant bandemia of 29%. UA pending. CXR with no acute findings. S/p Cipro/Flagyl in ER. DS: Medications - Discharge Medications Prescriptions: acidophilus-sporogenes [Acidophilus Ex Str (L. sporog)] 1 tab G-TUBE TID #90 tab amlodipine [Norvasc] 5 mg PO DAILY #30 tab pwamwewj-rrdqmrvqj-mfmkhfe bmb [Tyshawn] 1 packet NG/OG BID #60 ea cholestyramine (with sugar) 4 gm G-TUBE DAILY #30 ea hydralazine 25 mg PO TID #90 tab mesalamine 1,600 mg PO TID #90 tab sertraline [Zoloft] 25 mg PO DAILY #30 tab vancomycin 125 mg G-TUBE Q6H #84 ea DS: Summary Hospital Course: 63-year-old female with a PMH of HTN, C Diff and CVA w/ residual hemiparesis/ aphasia who presented to the emergency department on 07/06 due to hypotension, anemia and recurrent Clostridium difficile. Patient was seen and evaluated by infectious disease and treated with IV antibiotics. Patient was also treated with p.o. vancomycin for recurrent C. difficile. She was treated for hyponatremia and electrolyte abnormalities. Patient with stage IV wound ulcer for which she was seen and evaluated by wound care MD and treatment care nursing staff. Patient underwent diverting loop colostomy on 08/07/18. Wound care MD also recommended wound-VAC placement, plastic surgery consulted but no surgical intervention at this moment. Her IV antibiotics have been discontinued and patient has been cleared to discharge back to [facility] facility. Palliative care also followed patient during her stay and son who is the decision maker opted to continue aggressive care and to keep patient full code. Case management has made appropriate arrangements for patient to be discharged back to [facility] facility, wound VAC to be applied when she arrives there. Patient is seen and examined this morning resting in bed, appears to be comfortable and in no acute distress. No complaints reported by nursing staff. - Time Spent with Patient Total time spent providing and/or coordinating discharge services: Greater than 30 minutes - Quality: VTE Deep Vein Thrombosis/Pulmonary Embolism Present on Admission: No Exam Vital signs: Vital Signs 08/10/18 12:00 08/10/18 16:00 08/10/18 20:00 Temperature 97.6 F 98.0 F 97.4 F L Pulse Rate 85 77 101 H Respiratory Rate 18 19 16 Blood Pressure 181/85 H 159/128 H 148/89 H Pulse Oximetry 96 100 98 08/11/18 00:00 08/11/18 08:00 Temperature 98.2 F 98.3 F Pulse Rate 84 91 H Respiratory Rate 16 18 Blood Pressure 132/81 142/66 H Pulse Oximetry 100 97 Intake & Output 08/10/18 08/11/18 08/11/18 18:59 06:59 18:59 Intake Total 1999 / 1999 1000 / 1000 Output Total 150 / 150 1100 / 1100 Balance 1850 / 1850 -100 / -100 Weight 65.4 kg Intake: IV 1999 1000 / 1000 D5W Inj 1,000 ML @ 35 mls/hr IV 1000 / 1000 1000 / 1000 .CONT .Q24H [facility] Rx#:[id number] D5W Inj 1,000 ML @ 60 mls/hr IV 1000 / 1000 .SIG .[id number] [facility] Rx#:[id number] Output: Urine Amount (Catheter) 900 / 900 Indwelling Urethral Catheter 900 / 900 Stool Amount (Stoma) 150 / 150 200 / 200 Left Lower Abdomen 150 / 150 200 / 200 Other: Date of Last Bowel Movement 08/10/18 Narrative: GENERAL: Very thin elderly female, NAD, awake, appears to be in no acute distress. HEAD: Normocephalic. NECK: Supple, trachea midline. EYES: No scleral icterus. No injection or drainage. CARDIOVASCULAR: Regular rate and rhythm without murmurs, gallops, or rubs. RESPIRATORY: Breath sounds equal bilaterally. No accessory muscle use. GASTROINTESTINAL: Abdomen soft, non-tender, nondistended. No erythema at tube feed site. Left quadrant colostomy with liquid stool, pink stoma. MUSCULOSKELETAL: No cyanosis, or edema. SKIN: Warm and dry. NEURO: Global neurological deficits. Appears to understand, shakes her head no. Results Procedures completed during hospitalization: Loop colostomy 08/07/18 Labs on day of discharge: Labs from last 24 hours 08/11/18 08/11/18 08/10/18 07:59 07:33 17:26 BUN Pending POC Glucose 128 H 115 H Stl C.difficile DNA Amp St C. diff Tox Epid 027 08/10/18 08/10/18 14:06 12:00 BUN POC Glucose 98 Stl C.difficile DNA Amp Negative St C. diff Tox Epid 027 Negative - Impressions ITS Impressions Chest X-Ray 07/06/18 20:33 CONCLUSION: No acute cardiopulmonary process. Discharge Plan - Discharge Disposition Patient Disposition: 03 Discharge to SNF - Discharge Condition Condition: Fair - Discharge Order Discharge Orders: Discharge Order (Routine); Ordered 08/11/18 Ordered By: Raheem Morin - Physicians Team Primary Care Provider: UNKNOWN, Attending Provider: Shorty Mary Other Providers: [employer]Ds[employer] ; Maricruz Cruz MD ; Ricardo Acevedo MD ; Micaela Garcia MD ; Adi Monreal MD
== END 2018-08-11 14:37 ==
LOC: NEPC 20:23 → NEDA 22:48 → N07 07-07 01:35
PROVIDERS: ADMIT Hospitalist; ATTEND Hospitalist